=== PATIENT | female | born 1985 | race African-American/Black ===

== ENCOUNTER 2023-08-19 17:30 | Emergency (ER) | payer MEDICARE, SELFPAY ==
[2023-08-19 17:46] VITALS: BP 114/65; PULSE 86; RESP 18; TEMP 36.9; O2SAT 100; BMI 20.2
--- NOTE | 2023-08-19 18:12 | US_ITS ---
[facility] [place] [id number] Patient Name: CAROL ANN ROMAN MRN: [id number] date: 1985 Sex: F Assigned Patient Location: ER Current Patient Location: ER Accession/Order Number: [id number] Exam Date: 08/19/2023 18:45 Report Date: 08/19/2023 19:39 At the request of: JULIANNE LOWE Procedure: US pelvis transvaginal EXAM: US pelvis transvaginal HISTORY: Heavy vaginal bleeding COMPARISON: None. TECHNIQUE: Transabdominal and endovaginal approach pelvic ultrasound is performed. Multiple grayscale and color Doppler images are submitted for review. FINDINGS: The uterus is anteverted and measures 8.1 x 3.7 x 3.6 cm, and demonstrates normal morphology with normal echotexture. No uterine mass is visualized. The endometrium appears unremarkable, measuring 12 mm in thickness. The right ovary measures 3.1 x 2.4 x 2.4 cm. A 1.6 x 1.3 x 1.2 cm anechoic structure suggestive of a simple cyst is seen in the right ovary. The right ovary demonstrates normal Doppler flow. The left ovary measures 2.6 x 2.2 x 1.5 cm and demonstrates normal morphology with normal Doppler flow. No significant free pelvic fluid is seen. US/US pelvis transvaginal IMPRESSION: Unremarkable pelvic ultrasound. Bilateral ovaries demonstrate normal Doppler flow. Electronically authenticated by: JULES PHAM Date: 08/19/2023 19:39
--- NOTE | 2023-08-19 18:13 | ED_ITS ---
HPI - Female Genitourinary General Chief complaint: Urogenital-Female Stated complaint: Vaginal Bleeding Time Seen by Provider: 08/19/23 18:01 Source: patient Mode of arrival: walk-in Limitations: no limitations History of Present Illness HPI Narrative: patient is a 38-year-old female who presents to the emergency department for the evaluation of heavy vaginal bleeding that began today. She states that her last menstrual period was light and she does have a history of having both light and more heavy periods, but she has never had a period this heavy. She states that she woke up this morning and blood had soaked through her sheets and mattress protector. She is passing large clots. She denies any significant cramping. She does not believe she is but states there is a small possibility. She has not had any vomiting, fevers or urinary symptoms. She is not on any control or hormones. She states she had a LEEP procedure years ago but has not had any other gynecological surgeries. Related Data Previous Rx's Medication Instructions Recorded ketorolac 10 mg tablet 10 mg PO TID PRN pain #10 tabs 08/19/23 megestrol 20 mg tablet See Rx Instructions .Route 08/19/23 .COMPLEX #33 tabs ondansetron 4 mg disintegrating 4 mg PO Q6H PRN nausea and 08/19/23 tablet vomiting #12 tabs Allergies Allergy/AdvReac Type Severity Reaction Status Date / Time No Known Drug Allergies Allergy Verified 08/19/23 17:46 Review of Systems ROS Constitutional Denies: fever or chills Ears, nose, mouth, and throat Denies: throat pain Respiratory Denies: shortness of breath or cough Gastrointestinal Denies: nausea or vomiting Genitourinary Denies: painful urination Musculoskeletal Denies: back pain Integumentary/Breast Denies: rash Neurological Denies: headache Hematologic/Lymphatic Denies: easy bruising PFSH PFSH Social History Smoking status: Never smoker Exam Narrative Exam Narrative: Gen.: Awake, alert, in no distress Head: Normocephalic, atraumatic ENT: Moist mucous membranes Respiratory: No respiratory distress Gastrointestinal: Abdomen is soft, nondistended and nontender to palpation Extremities: Moves extremities equally Psych: Normal mood and affect Neuro: No focal neuro deficit Skin: Warm, dry, intact Constitutional Vital Signs, click to edit/add: Last Vital Signs Temp 98.4 F 08/19/23 17:46 Pulse 86 08/19/23 17:46 Resp 18 08/19/23 17:46 BP 114/65 08/19/23 17:46 Pulse Ox 100 08/19/23 17:46 O2 Del Method Room Air 08/19/23 17:46 Course Vital Signs Vital signs: Vital Signs Temperature 98.4 F 08/19/23 17:46 Pulse Rate 86 08/19/23 17:46 Respiratory Rate 18 08/19/23 17:46 Blood Pressure 114/65 08/19/23 17:46 Pulse Oximetry 100 08/19/23 17:46 Oxygen Delivery Method Room Air 08/19/23 17:46 Temperature 98.4 F 08/19/23 17:46 Pulse Rate 86 08/19/23 17:46 Respiratory Rate 18 08/19/23 17:46 Blood Pressure 114/65 08/19/23 17:46 Pulse Oximetry 100 08/19/23 17:46 Oxygen Delivery Method Room Air 08/19/23 17:46 MDM - Female Genitourinary MDM Narrative Medical decision making narrative: patient noted to have anemia, she does admit to iron deficiency anemia in the past and is taking iron supplements. 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 Toradol and Zofran given for comfort as needed. Patient is not and ultrasound with no evidence of acute process. Return to the Emergency Room if symptoms change or worsen. Abdomen is soft and benign with stable vital signs at discharge. urine specimen was contaminated with blood, this does show white blood cells but the patient has no urinary complaints so we will wait for culture to treat with antibiotics. Medical Records Attestation: I reviewed the patient's medical records. Lab Data Attestation: I reviewed the patient's lab results. Labs: Lab Results 08/19/23 08/19/23 Range/Units 18:22 19:00 WBC 7.6 (4.0-11.0) 10^3/uL RBC 4.17 L (4.20-5.40) 10^6/uL Hgb 9.3 L (12.0-16.0) g/dL Hct 31.9 L (36.0-48.0) % MCV 76.5 L (81.0-99.0) fL MCH 22.3 L (26.7-34.0) pg MCHC 29.2 L (29.9-35.2) g/dL RDW 24.4 H (11.0-15.0) % Plt Count 194 (150-450) 10^3/uL Seg Neuts % (Manual) 71.0 Lymphocytes % (Manual) 20.0 L (20.5-60.0) % Monocytes % (Manual) 8.0 (1.7-12.0) % Eosinophils % (Manual) 1.0 (0.9-7.0) % Basophils % (Manual) 0.0 L (0.2-2.0) % Neutrophils # (Manual) 5.39 (1.4-6.5) 10^3/uL Lymphocytes # (Manual) 1.52 (1.20-3.80) 10^3/uL Monocytes # (Manual) 0.60 (0.30-0.80) 10^3/uL Eosinophils # (Manual) 0.07 (0.00-0.70) 10^3/uL Basophils # (Manual) 0.00 (0.00-0.10) 10^3/uL Anisocytosis 2+ Ovalocytes 1+ PT 11.0 (9.0-11.6) sec INR 1.04 Sodium 135 L (136-145) mmol/L Potassium 3.6 (3.5-5.1) mmol/L Chloride 106 (98-107) mmol/L Carbon Dioxide 25.9 (21.0-32.0) mmol/L Anion Gap 6.7 BUN 11.0 (7.0-18.0) mg/dL Creatinine 1.06 H (0.55-1.02) mg/dL Est GFR ( Amer) >60 (>=60) Est GFR (Non-Af Amer) 58 L (>=60) BUN/Creatinine Ratio 10.4 Glucose 89 (74-106) mg/dL Calcium 8.3 L (8.5-10.1) mg/dL Total Bilirubin 0.5 (0.2-1.0) mg/dL AST 13 L (15-37) U/L ALT 16 (14-59) U/L Alkaline Phosphatase 47 (46-116) U/L Total Protein 7.1 (6.4-8.2) g/dL Albumin 3.5 (3.4-5.0) g/dL Globulin 3.6 g/dL Albumin/Globulin Ratio 1.0 Serum HCG, Qual Negative (NEGATIVE) Urine Color Yellow (YELLOW) Urine Clarity Cloudy A (CLEAR) Urine pH 5.5 (5.0-9.0) Ur Specific [place] >=1.030 A (1.005-1.025) Urine Protein 100 A (NEG/TRACE) mg/dL Urine Glucose (UA) Negative (NEGATIVE) mg/dL Urine Ketones Trace A (NEGATIVE) mg/dL Urine Occult Blood Large A (NEGATIVE) Urine Nitrite Negative (NEGATIVE) Urine Bilirubin Negative (NEGATIVE) Urine Urobilinogen 1.0 (0.2-1.0) EU/dL Ur Leukocyte Esterase Trace A (NEGATIVE) Urine RBC >100 A (0-2) #/HPF Urine WBC 20-50 A (NONE SEEN) #/HPF Ur Squamous Epith Cells Rare (NONE/RARE) #/LPF Urine Crystals None seen (None Seen) #/HPF Urine Bacteria None seen (NONE SEEN) #/HPF Urine Casts None seen (NONE SEEN) #/LPF Urine Mucus None seen (NONE SEEN) Imaging Data US - abdomen: Attestation: I have reviewed the pertinent imaging results. Radiologist's impression: Procedure: US pelvis transvaginal EXAM: US pelvis transvaginal HISTORY: Heavy vaginal bleeding COMPARISON: None. TECHNIQUE: Transabdominal and endovaginal approach pelvic ultrasound is performed. Multiple grayscale and color Doppler images are submitted for review. FINDINGS: The uterus is anteverted and measures 8.1 x 3.7 x 3.6 cm, and demonstrates normal morphology with normal echotexture. No uterine mass is visualized. The endometrium appears unremarkable, measuring 12 mm in thickness. The right ovary measures 3.1 x 2.4 x 2.4 cm. A 1.6 x 1.3 x 1.2 cm anechoic structure suggestive of a simple cyst is seen in the right ovary. The right ovary demonstrates normal Doppler flow. The left ovary measures 2.6 x 2.2 x 1.5 cm and demonstrates normal morphology with normal Doppler flow. No significant free pelvic fluid is seen. IMPRESSION: Unremarkable pelvic ultrasound. Bilateral ovaries demonstrate normal Doppler flow. Electronically authenticated by: JULES PHAM Date: 08/19/2023 19:39 Discharge Plan Discharge Chief Complaint: Urogenital-Female Clinical Impression: Dysfunctional uterine bleeding Patient Disposition: Home, Self-Care Time of Disposition Decision: 19:50 Condition: Good Prescriptions / Home Meds: New ketorolac 10 mg tablet 10 mg PO TID PRN (Reason: pain) Qty: 10 0RF ondansetron 4 mg tablet,disintegrating 4 mg PO Q6H PRN (Reason: nausea and vomiting) Qty: 12 0RF megestrol 20 mg tablet See Rx Instructions .ROUTE .COMPLEX Qty: 33 0RF Rx Instructions: 20 mg orally BID x 3 days, then 20mg daily for 27 days Instructions: Abnormal (Dysfunctional) Uterine Bleeding (ED) Stand Alone Forms: Portal Instructions Referrals: Clarke Hu DO [Physician] - 1 week Physician,Non-Staff, MD [Primary Care Provider] - 1 week
[2023-08-19 18:29] LABS: Hematocrit 31.9 % (36.0-48.0); Hemoglobin 9.3 g/dL (12.0-16.0); Mean Corpuscular HGB Conc 29.2 g/dL (29.9-35.2); Mean Corpuscular Hemoglobin 22.3 pg (26.7-34.0); Mean Corpuscular Volume 76.5 fL (81.0-99.0); Platelet Count 194 10^3/uL (150-450); Red Blood Count 4.17 10^6/uL (4.20-5.40); Red Cell Distribution Width 24.4 % (11.0-15.0); White Blood Count 7.6 10^3/uL (4.0-11.0)
[2023-08-19 18:41] LABS: INR 1.04
[2023-08-19 18:46] LABS: HCG Qualitative NEGATIVE (NEGATIVE)
[2023-08-19 18:47] LABS: Alanine Aminotransferase 16 U/L (14-59); Albumin Level 3.5 g/dL (3.4-5.0); Alkaline Phosphatase 47 U/L (46-116); Anion Gap 6.7; Aspartate Amino Transferase 13 U/L (15-37); BUN Creatinine Ratio 10.4; Bilirubin Total 0.5 mg/dL (0.2-1.0); Calcium 8.3 mg/dL (8.5-10.1); Carbon Dioxide 25.9 mmol/L (21.0-32.0); Chloride 106 mmol/L (98-107); Estimated GFR (African America >60 (>=60); Estimated GFR (Non-African Ame 58 (>=60); Globulin 3.6 g/dL; Glucose 89 mg/dL (74-106); Potassium 3.6 mmol/L (3.5-5.1); Sodium 135 mmol/L (136-145); Total Protein 7.1 g/dL (6.4-8.2)
[2023-08-19 19:03] LABS: Eosinophils Absolute Manual 0.07 10^3/uL (0.00-0.70); Lymphocytes Absolute Manual 1.52 10^3/uL (1.20-3.80); Segmented Neut Absolute Manual 5.39 10^3/uL (1.4-6.5)
[2023-08-19 19:06] LABS: Anisocytosis 2+
[2023-08-19 19:08] LABS: Ovalocytes 1+
[2023-08-19 19:21] LABS: Bilirubin Urine NEGATIVE (NEGATIVE); Blood Urine LARGE (NEGATIVE); Clarity Urine CLOUDY (CLEAR); Color Urine YELLOW (YELLOW); Glucose Urine UA NEGATIVE (NEGATIVE); Ketones Urine TRACE mg/dL (NEGATIVE); Leukocyte Esterase Urine TRACE (NEGATIVE); Nitrite Urine NEGATIVE (NEGATIVE); Protein Urine 100 mg/dL (NEG/TRACE); Specific Gravity Urine >=1.030 (1.005-1.025); pH Urine 5.5 (5.0-9.0)
[2023-08-19 19:26] LABS: Urine Microscopic Indicated YES
[2023-08-19 19:44] LABS: Bacteria Urine NONE SEEN #/HPF (NONE SEEN); RBC Urine >100 #/HPF (0-2); WBC Urine 20-50 #/HPF (NONE SEEN)
[2023-08-19 19:45] LABS: Cast Seen? NONE SEEN #/LPF (NONE SEEN); Crystals Seen? None Seen #/HPF (None Seen); Mucus Urine NONE SEEN (NONE SEEN); Squamous Epithelial Cell Urine RARE #/LPF (NONE/RARE)
== END 2023-08-19 20:23 | disposition home or self-care (01) ==
PROVIDERS: Physician Assistant; Emergency Provider Emergency Medicine Emergency Medical Services
DX: N93.8 Other specified abnormal uterine and vaginal bleeding (principal)
CPT/HCPCS: 36415; 76830; 80053; 81001; 84703; 85027; 85610; 99284

== ENCOUNTER 2023-09-18 10:55 | Outpatient (OUT) | payer MEDICARE, MEDICAID, SELFPAY ==
[2023-09-19 05:07] LABS: HBsAg Screen Negative (Negative); HCV Ab Non Reactive (Non Reactive); HIV Ab/p24 Ag Screen Non Reactive (Non Reactive); Hep A Ab, IgM Negative (Negative); Hep B Core Ab, IgM Negative (Negative)
[2023-09-19 11:09] LABS: Rapid Plasma Reagin, Quant Non Reactive titer (NonRea<1:1)
== END 2023-09-18 10:56 | disposition home or self-care (01) ==
PROVIDERS: Visit Provider Obstetrics & Gynecology
DX: N92.1 Excessive and frequent menstruation with irregular cycle (principal); Z11.3 Encounter for screening for infections with a predominantly sexual mode of transmission; N89.8 Other specified noninflammatory disorders of vagina
CPT/HCPCS: 36415; 80074; 86592; 87389

== ENCOUNTER 2023-11-14 10:53 | Outpatient (OUT) | payer MEDICARE, MEDICAID, SELFPAY ==
[2023-11-14 11:47] LABS: Basophils Percent Auto 0.5 % (0.2-2.0); Eosinophils Percent Auto 0.7 % (0.9-7.0); Hematocrit 36.1 % (36.0-48.0); Hemoglobin 11.1 g/dL (12.0-16.0); Immature Granulocytes Abs Auto 0.02 10^3/uL (0.00-0.03); Immature Granulocytes Pct Auto 0.3 % (0.0-0.5); Lymphocytes Absolute Auto 1.6 10^3/uL (1.2-3.8); Lymphocytes Percent Auto 27.3 % (20.5-60.0); Mean Corpuscular HGB Conc 30.7 g/dL (29.9-35.2); Mean Corpuscular Hemoglobin 24.3 pg (26.7-34.0); Mean Corpuscular Volume 79.2 fL (81.0-99.0); Mean Platelet Volume 12.9 fL (9.5-13.5); Monocytes Absolute Auto 0.4 10^3/uL (0.3-0.8); Monocytes Percent Auto 7.5 % (1.7-12.0); Neutrophils Absolute Auto 3.6 10^3/uL (1.4-6.5); Neutrophils Percent Auto 63.7 % (43.0-75.0); Platelet Count 200 10^3/uL (150-450); Red Blood Count 4.56 10^6/uL (4.20-5.40); Red Cell Distribution Width 15.9 % (11.0-15.0); White Blood Count 5.7 10^3/uL (4.0-11.0)
== END 2023-11-14 10:54 | disposition home or self-care (01) ==
LOC: PST 10:56
PROVIDERS: Visit Provider Obstetrics & Gynecology
DX: Z01.812 Encounter for preprocedural laboratory examination (principal); R93.89 Abnormal findings on diagnostic imaging of other specified body structures
CPT/HCPCS: 80048; 85025; 85610; 85730

== ENCOUNTER 2023-11-28 06:26 | Day surgery (SDC) | payer MEDICARE, MEDICAID, SELFPAY ==
[2023-11-14 11:33] VITALS: BP 117/73; PULSE 90; RESP 14; TEMP 36.4; O2SAT 99; BMI 20.3
[2023-11-28] VITALS (10 sets, daily range): BP systolic 90–130; BP diastolic 51–86; PULSE 79–91; RESP 12–20; TEMP 36.2–36.3; O2SAT 100; BMI 20.7
--- OUTSIDE RECORDS SUMMARY | 2023-11-28 06:31 | XMS_ITS | CCD ---
Author Name Unknown Address [id number] [place] [address] Organization [facility] Care Team Providers Care Cipher Expert Name Role Phone NON, STAFF Primary Care Provider UnavailJim Joel Attending Provider Unavailable Karri Jones Unavailable Unavailable Janice Lane Unavailable Unavailable PROVIDER, UNKNOWN Attending Unavailable PROVIDER, UNKNOWN Admitting Unavailable PATIENT, SELF Referring Unavailable Janice Lane MD Primary Care Provider [phone] Any, DO Vishal Hoover Emergency Provider MD Janice Lane Primary Care Provider Janice Lane MD Primary Care Provider Janice Lane MD Primary Care Provider [phone] MD Primary Care Provider MD Janice Lane Primary Care Provider DO Vishal Agarwal Emergency Provider [phone] Vishal Agarwal Admitting Unavailable Vishal Agarwal Attending Unavailable Janice Lane Primary Care Unavailable Vishal Agarwal Attending Unavailable Janice Lane Primary Care Unavailable Vishal Agarwal Admitting Unavailable JANICE LANE Primary Care Unavailable JANICE LANE Primary Care Unavailable ROSE WILCOX Referring Unavaila ROSE Alfaro Attending Unavaila JANICE Nielsen Primary Care Unavailable MIRNA BAXTER Attending Unavailable JANICE LANE Primary Care Unavailable JOSE RAUL SANTANA Referring Unavailable JOSE RAUL SANTANA Attending Unavailable JANICE LANE Primary Care Unavailable JOSE RAUL SANTANA Referring Unavailable RIMA, JANICE Hoover Primary Care Unavailable JOSE RAUL SANTANA A Referring Unavailable JOSE RAUL SANTANA A Attending Unavailable RIMA, JANICE Hoover Primary Care Unavailable JOSE RAUL SANTANA A Referring Unavailable RIMA, JANICE Hoover Primary Care Unavailable MICHELLE GARCIA Referring Unavailable RIMA, JANICE Hoover Primary Care Unavailable GERMANIA WILKINSON Attending Unavailable RIMA, JANICE Hoover Primary Care Unavailable RIMA, JANICE Hoover Attending Unavailable RIMA, JANICE Hoover Primary Care Unavailable JOSE RAUL SANTANA Referring Unavailable TOR BUTT Attending Unavailable RIMA, JANICE Hoover Primary Care Unavailable TOR HERNANDEZ Attending Unavailable RIMA, JANICE Hoover Primary Care Unavailable RIMA, JANICE Hoover Referring Unavailable RIMA, JANICE Hoover Attending Unavailable RIMA, JANICE Hoover Referring Unavailable RIMA, JANICE Hoover Primary Care Unavailable RIMA, JANICE Hoover Primary Care Unavailable RIMA, JANICE Hoover Attending Unavailable RIMA, JANICE Hoover Referring Unavailable RIMA, JANICE Hoover Primary Care Unavailable RIMA, JANICE Hoover Primary Care Unavailable JOSE RAUL SANTANA Referring Unavailable TOR HERNANDEZ Attending Unavailable RIMA, JANICE Hoover Primary Care Unavailable RIMA, JANICE Hoover Referring Unavailable RIMA, JANICE Hoover Primary Care Unavailable RIMA, JANICE Hoover Referring Unavailable NAYLA LOUIS Attending Unavailable MARVIN KATZ Attending Unavailable MARVIN KATZ Attending Unavailable JOHN VERDIN Attending Unavailable KELECHI TATUM Attending Unavailable Unavailable Unavailable Unavailable Allergies Allergy Classification Reported Allergen(s) Allergy Type Date of Onset Reaction(s) Facility (2 sources) glutenin; Translations: [GLUTEN] Allergy to substance (finding) 0 [facility] Repository (1 source) Soy protein; Translations: [SOY ALLERGY] Propensity to adverse reactions to drug (disorder) 0 [facility] Repository (1 source) GLUTEN MEAL; Translations: [GLUTEN MEAL] Propensity to adverse reactions to drug (disorder) 9 [facility] ([facility] source) LECITHIN ORGANIC-SOYBEAN LECITHIN; Translations: [LECITHIN ORGANIC-SOYBEAN LECITHIN] Propensity to adverse reactions to drug (disorder) 9 [facility] Repository (20 sources) Lecithin; Translations: [LECITHIN] Drug Allergy 9 Other: See Comments, Unknown, Itching, GI Upset [facility] Work Phone: (20 sources) Soy protein; Translations: [SOY] Drug Intolerance 0 Intolerance [facility] (20 sources) Wheat gluten extract Drug Allergy 9 Other: See Comments, Hives, Itching [facility] (20 sources) Soybean Lecithin; Translations: [LECITHIN, SOY] Drug Allergy 2 GI Upset, Unknown [facility] Medications Current Medications Medication Drug Class(es) Dates Sig (Normalized) Sig (Original) acetaminophen 325 mg oral tablet (13 sources) Start: 01-11-2021 End: 08-08-2022 take 2 tablets by mouth every four hours as needed acetaminophen (TYLENOL) 325 mg tablet Take 2 tablets by mouth every 4 hours as needed. 40 tablet 0 01/11/2021 08/08/2022 Discontinued Comment on above: Take 2 tablets by mo ut every 4 hours as needed. benoxinate hydrochloride 4 mg/ml / fluorescein sodium 2.5 mg/ml ophthalmic solution (1 source) Diagnostic Dye Start: 08-14-2022 End: 08-15-2022 fluorescein-benoxin ate 0.25-0.4 % 1 Drop (FLURESS) cholecalciferol 1.25 mg oral capsule (17 sources) Vitamin D Start: 12-20-2019 End: 08-08-2022 take 1 capsule by mouth every week cholecalciferol, Vitamin D3, (VITAMIN D3) 1,250 mcg (50,000 unit) cap capsule Indications: Vitamin D deficiency Take 1 capsule by mouth one time a week. 12 capsule 0 04/25/2022 08/08/2022 Discontinued Start: 04-09-2019 take 1 capsule by mo uth once daily Cholecalciferol (Vitamin D3) (Vitamin D3) 1,000 unit Capsule Active 1000 UNIT PO Daily April 09, 2019 12:20pm Comment on above: Take 1 capsule by mo ut one time a week. 12 hr dalfampridine 10 mg extended release oral tablet (20 sources) Potassium Channel Arvin Start: 3 End: 4 take 1 tablet by mouth twice daily dalfampridine ER (AMPYRA) 10 mg tablet Indications: Multiple sclerosis (HCC) Take 1 tablet by mouth twice daily. 60 tablet 11 01/24/2023 01/24/2024 Active Start: 08-08-2022 End: 02-04-2023 take 1 tablet by mouth every twelve hours dalfampridine ER (AMPYRA) 10 mg tablet Take 1 tablet by mouth every 12 hours. 60 tablet 5 11/07/2022 11/07/2022 Discontinued Start: 04-09-2019 End: 04-02-2022 take 1 tablet by mouth every twelve hours Dalfampridine (Ampyra) 10 mg Tablet Extended Release 12 Hr Discontinued 1 TAB PO Every 12 hours April 09, 2019 12:20pm April 02, 2022 5:22pm Comment on above: Take 1 tablet by jose ramon th every 12 hours. Take 1 tablet by jose ramon th twice daily. diphenhydrAMINE hydrochloride 25 mg oral capsule (3 sources) Histamine-1 Receptor Antagonist Start: take 1 capsule by mouth every six hours Diphenhydramine Hcl (Benadryl) 25 mg Capsule Active 25 MG PO Q6H April 09, 2019 12:20pm ferrous sulfate 325 mg oral tablet (1 source) Start: 023 End: take 1 tablet by mouth once daily ferrous sulfate 325 mg (65 mg iron) tablet Indications: Iron deficiency anemia due to chronic blood loss Take 1 tablet by mouth once daily. 30 tablet 1 02/13/2023 03/15/2023 Active Comment on above: Take 1 tablet by jose ramon th once daily. ibuprofen 600 mg oral tablet (15 sources) Nonsteroidal Anti-inflammatory Drug Start: 022 Ibuprofen Active 600 MG PO Every 6 hours April 02, 2022 6:12pm do not exceed 4 doses in a 24 hour period Start: 01-11-2021 End: 08-08-2022 take 1 tablet by mouth every six hours as needed ibuprofen (MOTRIN) 600 mg tablet Take 1 tablet by mouth four times daily as needed. 40 tablet 0 01/11/2021 08/08/2022 Discontinued Comment on above: Take 1 tablet by jose ramon th four times daily as needed. iv contrast (will be provided with radiology test) (6 sources) Start: 07-23-20 End: 07-24-20 inject 1 dose intravenously once iv contrast (will be provided with radiology test) Indications: Multiple sclerosis (HCC) MRI Brain Inject, intravenously, once for 1 dose.No IV access, insert saline lock prior to beginning of sedation, infusion, injection of imaging exam.Discontinue saline lock post exam. If Pt. has a central line or IVAD, may access for administration according to line specific nursing protocol.Once exam is complete flush line and de-access according to line specific nursing protocol in the MR contrast administration guidelines link 1 Each 0 07/23/2023 07/24/2023 Active Start: 11-07-2022 End: 11-08-2022 inject 1 dose intravenously once iv contrast (will be provided with radiology test) MRI Brain Inject, intravenously, once for 1 dose.No IV access, insert saline lock prior to beginning of sedation, infusion, injection of imaging exam.Discontinue saline lock post exam. If Pt. has a central line or IVAD, may access for administration according to line specific nursing protocol.Once exam is complete flush line and de-access according to line specific nursing protocol in the MR contrast administration guidelines link 1 Each 0 11/07/2022 11/08/2022 Start: 11-07-2022 End: 11-08-2022 iv contrast (will be provide d with radiology test) MRI CSP Inject, intravenously, once for 1 dose. No IV access, insert saline lock prior to the beginning of sedation, infusion, injection of imaging exam. Discontinue saline lock post exam. If Pt. has a central line or IVAD, may access for administration according to line specific nursing protocol. Once exam is complete flush line and de-access according to line specific nursing protocol in the MR contrast administration guidelines link. 1 Each 0 11/07/2022 11/08/2022 Start: 06-21-2022 End: 06-22-2022 inject 1 dose intravenously once iv contrast (will be provided with radiology test) MRI Brain Inject, intravenously, once for 1 dose.No IV access, insert saline lock prior to beginning of sedation, infusion, injection of imaging exam.Discontinue saline lock post exam. If Pt. has a central line or IVAD, may access for administration according to line specific nursing protocol.Once exam is complete flush line and de-access according to line specific nursing protocol in the MR contrast administration guidelines link 1 Each 0 06/21/2022 06/22/2022 Active Start: 06-21-2022 End: 06-22-2022 iv contrast (will be provide d with radiology test) MRI CSP Inject, intravenously, once for 1 dose. No IV access, insert saline lock prior to the beginning of sedation, infusion, injection of imaging exam. Discontinue saline lock post exam. If Pt. has a central line or IVAD, may access for administration according to line specific nursing protocol. Once exam is complete flush line and de-access according to line specific nursing protocol in the MR contrast administration guidelines link. 1 Each 0 06/21/2022 06/22/2022 Active Start: 06-21-2022 End: 06-22-2022 inject 1 dose intravenously once iv contrast (will be provided with radiology test) MRI TSP Inject, intravenously, once for 1 dose. No IV access, insert saline lock prior to the beginning of sedation, infusion, injection of imaging exam. Discontinue saline lock post exam. If Pt. has a central line or IVAD, may access for administration according to line specific nursing protocol. Once exam is complete flush line and de-access according to line specific nursing protocol in the MR contrast administration guidelines link. 1 Each 0 06/21/2022 06/22/2022 Active Comment on above: MRI Brain Inject, in travenously, once for 1 dose.No IV access, insert saline lock prior to beginning of sedation, infusion, injection of imaging exam.Discontinue saline lock post exam. If Pt. has a central line or IVAD, may access for administration according to line specific nursing protocol.Once exam is complete flush line and de-access according to line specific nursing protocol in the MR contrast administration guidelines link MRI CSP Inject, intr avenously, once for 1 dose. No IV access, insert saline lock prior to the beginning of sedation, infusion, injection of imaging exam. Discontinue saline lock post exam. If Pt. has a central line or IVAD, may access for administration according to line specific nursing protocol. Once exam is complete flush line and de-access according to line specific nursing protocol in the MR contrast administration guidelines link. MRI TSP Inject, intr avenously, once for 1 dose. No IV access, insert saline lock prior to the beginning of sedation, infusion, injection of imaging exam. Discontinue saline lock post exam. If Pt. has a central line or IVAD, may access for administration according to line specific nursing protocol. Once exam is complete flush line and de-access according to line specific nursing protocol in the MR contrast administration guidelines link. magnesium oxide 400 mg oral tablet (9 sources) Start: 3 End: 4 take 1 tablet by mouth once daily at bedtime magnesium oxide (MAG-OX) 400 mg (241.3 mg magnesium) tablet Indications: Multiple sclerosis (HCC) , Spasticity Take 1 tablet by mouth daily at bedtime. 30 tablet 5 07/23/2023 01/19/2024 Active Comment on above: Take 1 tablet by jose ramon th daily at bedtime. Multivitamin-Iron- Folic Acid (1 source) Start: 9 take 1 tablet by mouth once daily Multivitamin-Iron- Folic Acid Active 1 TAB Oral Daily April 09, 2019 12:28pm Multivitamin-Iron- Folic Acid (Multi-Day With Iron) 18-400 mg-mcg Tablet (2 sources) Start: 9 take 1 tablet by mouth once daily Multivitamin-Iron- Folic Acid (Multi-Day With Iron) 18-400 mg-mcg Tablet Active 1 TAB PO Daily April 09, 2019 12:28pm Start: 04-09-2019 take 1 tablet by jose ramon th once daily Gemuwdqsfgyp-Bpug-Cczpj Acid (Multi-Day With Iron) 18-400 mg-mcg Tablet Active 1 TAB PO Daily April 08, 2019 11:00pm nirmatrelvir tablet 300 mg (150 mg x 2) and ritonavir tablet 100 mg in a dose pack (PAXLOVID) (2 sources) Start: 12-16-2022 End: 12-21-2022 nirmatrelvir tablet 300 mg (150 mg x 2) and ritonavir tablet 100 mg in a dose pack (PAXLOVID) Indications: COVID Administer TWO pink nirmatrelvir 150 mg tablets and ONE white ritonavir 100 mg tablet for a total of three tablets twice daily. 30 tablet 0 12/16/2022 12/21/2022 Active Comment on above: Administer TWO pink nirmatrelvir 150 mg tablets and ONE white ritonavir 100 mg tablet for a total of three tablets twice daily. Nirmatrelvir-Ritona vir (1 source) Start: 10-28-2022 Nirmatrelvir-Riton avir (Paxlovid (Eua)) 300 mg (150 mg x 2)-100 mg tablets,dose pack Active 0 PO .COMPLEX October 28, 2022 12:00am take TWO 150 mg tablets of nirmatrelvir with ONE 100 mg tablet of ritonavir twice daily for 5 days phenylephrine hydrochloride 25 mg/ml ophthalmic solution (1 source) alpha-1 Adrenergic Agonist Start: 08-14-2022 End: 08-15-2022 PHENYLephrine 2.5 % 1 Drop (AK-DILATE, SABINA-SYNEPHRINE) tropicamide 10 mg/ml ophthalmic solution (1 source) Anticholinergic Start: 08-14-2022 End: 08-15-2022 tropicamide 1 % 1 Drop (MYDRIACYL) Vitamin B Complex (1 source) Start: 04-09-2019 take 1 tablet by mouth once daily Vitamin B Complex Active 1 TAB Oral Daily April 09, 2019 12:20pm Vitamin B Complex (B Complex 1) Tablet (2 sources) Start: 04-09-2019 take 1 tablet by mouth once daily Vitamin B Complex (B Complex 1) Tablet Active 1 TAB PO Daily April 09, 2019 12:20pm Start: 04-09-2019 take 1 tablet by mouth once da pablo Vitamin B Complex (B Complex 1) Tablet Active 1 TAB PO Daily April 08, 2019 11:00pm Completed/Discontinued Medications Medication Drug Class(es) Dates Sig (Normalized) Sig (Original) acetaminophen 325 mg / HYDROcodone bitartrate 5 mg oral tablet (3 sources) Opioid Agonist Start: 04-09-2019 End: 04-02-2022 take 1 tablet by mouth every four to six hours Hydrocodone-Acetam inophen ([place]) 5-325 mg Tablet Discontinued 1 TAB PO EVERY 4-6 HOURS April 09, 2019 12:28pm April 02, 2022 5:25pm amoxicillin 500 mg oral tablet (3 sources) Penicillin-class Antibacterial take 2 tablets by mouth twice daily Amoxicillin 500 mg tablet Take 1,000 mg by mouth two times a day. 0 Active Comment on above: Take 1,000 mg by jose ramon th two times a day. ascorbic acid 500 mg oral capsule (20 sources) Vitamin C Start: 01-05-2020 take 1 capsule by mouth once daily Vitamin C 500 MG Oral Capsule TAKE 1 CAPSULE Daily Refills: 0 Start : 05-Jan-2020 Active Start: 04-09-2019 take 1 tablet by mouth once da pablo Ascorbic Acid (Vitamin C) (Vitamin C) 100 mg Tablet Active 100 MG PO Daily April 09, 2019 12:20pm take 100 mg by mouth once daily Ascorbic Acid 100 mg chew Take 100 mg by mouth once daily. 0 Active Comment on above: Take 100 mg by mouth once daily. azithromycin 250 mg oral tablet (6 sources) Macrolide Antimicrobial Start: 02-12-2023 azithromycin (ZITHROMAX Z-CY) 250 mg tablet 2 tablets by mouth first day then 1 tablet the next 4 days 6 tablet 0 02/12/2023 Active Comment on above: 2 tablets by mouth f irst day then 1 tablet the next 4 days Calcium Carbonate (20 sources) calcium carbonat e (CALCIUM 300 ORAL) Take by mouth once daily. 0 Active Comment on above: Take by mouth once d aily. Mag Nurcb-J6-Tnwtxzkw Rt Xt (3 sources) Vitamin D Start: 04-09-2019 End: 04-02-2022 Mag Kotth-Y9-Ehvylqzo Rt Xt Discontinued TABLET April 09, 2019 12:28pm April 02, 2022 5:24pm Start: 04-09-2019 Mag Oxide-D3-T urmeric Rt Xt Active April 09, 2019 12:28pm Start: 04-09-2019 End: 04-02-2022 Mag Fyjni-N0-Dknaywhn Rt Xt Discontinued TABLET April 08, 2019 11:00pm April 02, 2022 4:24pm doxepin 3 mg oral tablet (3 sources) Tricyclic Antidepressant Start: 04-09-2019 End: 04-02-2022 take 1 tablet by mouth once daily at bedtime Doxepin (Silenor) 3 mg Tablet Discontinued 3 MG PO Daily at bedtime April 09, 2019 12:20pm April 02, 2022 5:22pm ergocalciferol 1.25 mg oral capsule (20 sources) Provitamin D2 Compound Start: 01-30-2023 End: 07-31-2023 take 1 capsule by mouth every week ergocalciferol 50,000 unit capsule (VITAMIN D2, DRISDOL) Indications: Multiple sclerosis (HCC) , Vitamin D deficiency Take 1 capsule by mouth one time a week. 12 capsule 3 07/31/2023 Active Start: 08-08-2022 take 1 capsule by mo uth every week ergocalciferol 50,000 unit capsule (VITAMIN D2, DRISDOL) Take 1 capsule by mouth one time a week. 12 capsule 3 08/08/2022 Active Comment on above: Take 1 capsule by mo uth one time a week. escitalopram 10 mg oral tablet (3 sources) Serotonin Reuptake Inhibitor Start: 04-09-20 End: 04-02-20 take 1 tablet by mouth once daily Escitalopram Oxalate (Lexapro) 10 mg Tablet Discontinued 10 MG PO Daily April 09, 2019 12:20pm April 02, 2022 5:22pm eszopiclone 3 mg oral tablet (4 sources) Start: 04-09-20 End: 04-02-20 take 1 tablet by mouth at bedtime as needed for sleep Lunesta 3 MG Oral Tablet TAKE 1 TABLET AT BEDTIME NEEDED FOR SLEEP. Refills: 0 Start : 05-Jan-2020 Active fluticasone propionate 0.05 mg/actuat metered dose nasal spray (20 sources) Corticosteroid Start: 09-01-20 take 1 spray(s) nasal route once daily fluticasone (FLONASE) 50 mcg/actuation nasal spray Use 1 [place] in each nostril once daily. 1 g 5 09/01/2020 Active Comment on above: Use 1 [place] in each nostril once daily. ketoconazole 20 mg/ml topical cream (20 sources) Azole Antifungal Start: 07-17-20 ketoconazole (NIZORAL) 2 % shampoo 2-3 times weekly as body wash 125 mL 11 07/17/2023 Active Start: 07-17-2023 ketoconazole ( NIZORAL) 2 % cream Apply to affected area once daily. Apply qd 30 g 3 07/17/2023 Active Start: 10-02-2020 End: 08-08-2022 ketoconazole (NIZORAL) 2 % s hampoo 2-3 times weekly as body wash 125 mL 11 10/02/2020 08/08/2022 Discontinued Start: 09-01-2020 ketoconazole ( NIZORAL) 2 % cream Apply to affected area once daily. Apply qd 30 g 3 09/01/2020 Active Comment on above: Apply to affected ar ea once daily. Apply qd 2-3 times weekly as body wash levonorgestrel 0.308510 mg/hr intrauterine system (3 sources) Progestin, Progestin-containing Intrauterine Device Start: 04-09-2019 Levonorgestrel Active 1 DEVICE Intrauterine Once April 09, 2019 12:28pm Start: 04-09-2019 End: 04-02-2022 Levonorgestrel (Mirena) 20 m cg/24 hours (5 yrs) 52 mg Intrauterine Device Discontinued 1 DEVICE INTRAUTERI Once April 09, 2019 12:28pm April 02, 2022 5:23pm linaclotide 0.29 mg oral capsule (15 sources) Guanylate Cyclase-C Agonist Start: 04-19-2021 End: 08-14-2022 take 1 capsule by mouth once daily, then take 6 capsules by mouth in the morning linaCLOtide (LINZESS) 290 mcg capsule Indications: Chronic idiopathic constipation Take 1 capsule by mouth DAILY (6 AM). 30 capsule 5 04/19/2021 08/14/2022 Discontinued Comment on above: Take 1 capsule by mo [facility] DAILY (6 AM). Magnesium (20 sources) End: 07-23-2023 take 1 tablet by mouth twice daily MAGNESIUM ORAL Take 1 tablet by mouth twice daily. 0 07/23/2023 Discontinued (Course of therapy completed) take 1 tablet by mouth twice linda ly MAGNESIUM ORAL Take 1 tablet by mouth twice daily. 0 Active Comment on above: Take 1 tablet by jsoe ramon twice daily. meclizine hydrochloride 12.5 mg oral tablet (3 sources) Antiemetic Start: 2018 End: 2021 take 12.5 mg by mouth three times daily Meclizine Discontinued 12.5 MG PO Three times daily April 09, 2019 12:28pm April 02, 2022 5:23pm melatonin 3 mg oral tablet (20 sources) Start: 2020 take 1 tablet by mouth once daily as needed melatonin 3 mg tablet Take 1 tablet by mouth once daily as needed. 12 tablet 0 01/11/2021 Active Comment on above: Take 1 tablet by jose ramon once daily as needed. metroNIDAZOLE 500 mg oral tablet (3 sources) Nitroimidazole Antimicrobial take 1 tablet by mouth three times daily metroNIDAZOLE (FLAGYL) 500 mg tablet Take 500 mg by mouth three times a day. 0 Active Comment on above: Take 500 mg by mouth three times a day. 15 ml natalizumab 20 mg/ml injection (3 sources) Integrin Receptor Antagonist Start: 2018 End: 2021 take 300 mg intravenously every month Natalizumab (Tysabri) 300 mg/15 mL Solution Discontinued 300 MG IV every month April 09, 2019 12:28pm April 02, 2022 5:23pm norethindrone 0.35 mg oral tablet (3 sources) take 1 tablet by mouth once daily in the morning Norethindrone, Contraceptive, (JENCYCLA) 0.35 mg tablet Take 1 tablet by mouth every morning. 0 Active Comment on above: Take 1 tablet by jose ramon th every morning. 10 ml ocrelizumab 30 mg/ml injection (20 sources) Start: 2021 ocrelizumab (OCREVUS) 30 mg/mL soln injection Ocrelizumab (Ocrevus) 30 mg/mL Solution Active 30 MG IV EVERY 6 MONTHS April 02, 2022 5:21pm pt. recieves infusion Q6M for MS 0 04/02/2022 Active Comment on above: Ocrelizumab (Ocrevus ) 30 mg/mL Solution Active 30 MG IV EVERY 6 MONTHS April 02, 2022 5:21pm pt. recieves infusion Q6M for MS ocrelizumab (OCREVUS INTRAVENOUS) (15 sources) End: 2021 ocrelizumab (OCREVUS INTRAVENOUS) Inject intravenously. 0 08/14/2022 Discontinued ocrelizumab (OCR EVUS INTRAVENOUS) Inject intravenously. 0 Active Comment on above: Inject intravenously . polyethylene glycol 3350 80086 mg powder for oral solution (16 sources) Osmotic Laxative Start: 04-19-2021 End: 08-14-2022 polyethylene glycol 3350 (MIRALAX) 17 gram/dose powder Indications: Chronic idiopathic constipation Take 17 g by mouth twice daily. Dissolve dose in 4 - 8 ounces of liquid and take as directed. 850 g 5 04/19/2021 08/14/2022 Discontinued Start: 01-05-2020 MiraLax Oral P acket USE DIRECTED. Refills: 0 Start : 05-Jan-2020 Active Comment on above: Take 17 g by mouth t wice daily. Dissolve dose in 4 - 8 ounces of liquid and take as directed. polyethylene glycol, bulk, 100 % powd (20 sources) polyethylene gly col, bulk, 100 % powd as directed. 0 Active Comment on above: as directed. potassium 99 mg extended release oral tablet (1 source) Start: 01-05-20 take 1 tablet by mouth once daily Potassium 99 MG Oral Tablet TAKE 1 TABLET DAILY DIRECTED. Refills: 0 Start : 05-Jan-2020 Active microencapsulated potassium chloride 20 meq extended release oral tablet (20 sources) End: 01-18-20 potassium chloride ER (K-DUR, KLOR-CON) 20 mEq tablet Take 20 mEq by mouth as needed. 0 01/17/2023 Discontinued Comment on above: Take 20 mEq by mouth as needed. Ckwspjfk-Kt-Vaw-Fe-FA ( VITAMIN) tab (20 sources) Start: 08-04-20 take 1 tablet by mouth once daily Ardavtfs-Fh-Ntl-Fe-F A ( VITAMIN) tab Indications: Encounter for supervision of normal first in second trimester Take 1 tablet by mouth once daily. 90 tablet 3 2020 Active Comment on above: Take 1 tablet by jose ramon th once daily. /Iron Oral Tablet (1 source) Start: 01-05-20 take 1 tablet by mouth once daily /Iron Oral Tablet TAKE 1 TABLET DAILY. Refills: 0 Start : 05-Jan-2020 Active tiZANidine 2 mg oral tablet (20 sources) Central alpha-2 Adrenergic Agonist Start: 01-31-20 take 1 tablet by mouth every eight hours as needed tiZANidine (ZANAFLEX) 2 mg tablet Indications: Multiple sclerosis (HCC) Take 1 tablet by mouth every 8 hours as needed. 90 tablet 3 01/30/2023 Active Start: 08-08-2022 End: 11-07-2022 take 1 tablet by mouth every eight hours as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 [H91.93] 07/14/2018 Cognitive complaints [R41.9] 03/03/2019 07/17/2023 Constipation [K59.00] 10/06/2019 07/17/2023 Costochondritis, acute [M94.0] 04/17/2021 04/20/2021 Edema of lower extremity [R60.0] 04/17/2021 04/20/2021 Gait difficulty [R26.9] 10/06/2019 07/17/2023 Hypoglycemia [E16.2] 03/07/2021 07/17/2023 Neurogenic bladder [N31.9] 07/14/2020 Obstructive sleep apnea [G47.33] 07/28/2017 07/17/2023 Optic neuritis [H46.9] 08/21/2019 Ovarian cyst, complex [N83.299] 04/14/2018 Ovarian torsion [N83.519] 04/14/2018 Restless leg syndrome [G25.81] 07/28/2017 Somnolence, daytime [R40.0] 07/28/2017 04/20/2021 Syncope and collapse [R55] 12/04/2018 07/17/2023 Cognitive communication deficit [R41.841] 07/22/2022 07/17/2023 Encounter Status:Closed by KATHERYN ESPINO on 09/29/23 Normal [facility] Comprehensive metabolic 2000 panelon 09-25-2023 Albumin [Mass/Vol] 4.5 g/dL Normal 3.9-4.9 [facility] Comment on above: Order Comment: Speci men Type: BLOOD SPECIMENOrdering Facility: [facility] Address: [address] [place] [address] Performed By: #### 2 4323-8 ####[facility] LABCLIA [id number] [place] [address] ALP [Catalytic activity/Vol] 58 U/L Normal 34-123 [facility] Comment on above: Order Comment: Speci men Type: BLOOD SPECIMENOrdering Facility: [facility] Address: [address] [place] [address] Performed By: #### 2 4323-8 ####[facility] LABCLIA [id number] [place] [address] ALT [Catalytic activity/Vol] 11 U/L Normal 7-38 [facility] Comment on above: Order Comment: Speci men Type: BLOOD SPECIMENOrdering Facility: [facility] Address: [address] [place] [address] Performed By: #### 2 4323-8 ####[facility] LABCLIA [id number] [place] [address] Anion gap [Moles/Vol] 9 mmol/L Normal 9-18 [facility] Comment on above: Order Comment: Speci men Type: BLOOD SPECIMENOrdering Facility: [facility] Address: [address] [place] [address] Performed By: #### 2 4323-8 ####[facility] LABCLIA [id number] [place] [address] AST [Catalytic activity/Vol] 17 U/L Normal 13-35 [facility] Comment on above: Order Comment: Speci men Type: BLOOD SPECIMENOrdering Facility: [facility] Address: [address] [place] [address] Performed By: #### 2 4323-8 ####[facility] LABCLIA [id number] [place] [address] Bilirubin [Mass/Vol] 0.5 mg/dL Normal 0.2-1.3 [facility] Comment on above: Order Comment: Speci men Type: BLOOD SPECIMENOrdering Facility: [facility] Address: [address] [place] [address] Performed By: #### 2 4323-8 ####[facility] LABCLIA [id number] [place] [address] Calcium [Mass/Vol] 9.5 mg/dL Normal 8.5-10.2 [facility] Comment on above: Order Comment: Speci men Type: BLOOD SPECIMENOrdering Facility: [facility] Address: [address] [place] [address] Performed By: #### 2 4323-8 ####[facility] LABCLIA [id number] [place] [address] Chloride [Moles/Vol] 106 mmol/L High 97-105 [facility] Comment on above: Order Comment: Speci men Type: BLOOD SPECIMENOrdering Facility: [facility] Address: [address] [place] [address] Performed By: #### 2 4323-8 ####[facility] LABCLIA [id number] [place] [address] CO2 [Moles/Vol] 26 mmol/L Normal 22-30 [facility] Comment on above: Order Comment: Speci men Type: BLOOD SPECIMENOrdering Facility: [facility] Address: [address] [place] [address] Performed By: #### 2 4323-8 ####[facility] LABCLIA [id number] [place] [address] Creatinine [Mass/Vol] 0.95 mg/dL Normal 0.58-0.96 [facility] Comment on above: Order Comment: Speci men Type: BLOOD SPECIMENOrdering Facility: [facility] Address: [address] [place] [address] Performed By: #### 2 4323-8 ####[facility] LABCLIA [id number] [place] [address] Creatinine and Glomerular filtration rate.predicted panel (S/P/Bld) 79 mL/min/1.73m??? Normal >=60 [facility] Comment on above: Order Comment: Rylee chauhan Type: BLOOD SPECIMENOrdering Facility: [facility] Address: [address] [place] [address] Result Comment: Priscila mated Glomerular Filtration Rate (eGFR) is calculated using the 2020 CKD-EPI creatinine equation. This equation utilizes serum creatinine, sex, and age as parameters. The creatinine assay has traceable calibration to isotope dilution-mass spectrometry. Refer to KDIGO guidelines for clinical interpretation. In patients with unstable renal function, e.g. those with acute kidney injury, the eGFR may not accurately reflect actual GFR. Performed By: #### 2 4323-8 ####[facility] LABCLIA [id number] [place] [address] Glucose [Mass/Vol] 89 mg/dL Normal 74-99 [facility] Comment on above: Order Comment: Rylee chauhan Type: BLOOD SPECIMENOrdering Facility: [facility] Address: [address] [place] [address] Result Comment: The [place] [employer] (ADA) provides guidance for cutoff values for fasting glucose and random glucose. The ADA defines fasting as no caloric intake for at least 8 hours. Fasting plasma glucose results between 100 to 125 mg/dL indicate increased risk for diabetes (prediabetes). Fasting plasma glucose results greater than or equal to 126 mg/dL meet the criteria for diagnosis of diabetes. In the absence of unequivocal hyperglycemia, results should be confirmed by repeat testing. In a patient with classic symptoms of hyperglycemia or hyperglycemic crisis, random plasma glucose results greater than or equal to 200 mg/dL meet the criteria for diagnosis of diabetes. Reference: Standards of Medical Care in Diabetes 2016, [place] [employer]. Diabetes Care. 2016.39(Suppl 1). Performed By: #### 2 4323-8 ####[facility] LABCLIA [id number] [place] [address] Potassium [Moles/Vol] 3.6 mmol/L Low 3.7-5.1 [facility] Comment on above: Order Comment: Speci men Type: BLOOD SPECIMENOrdering Facility: [facility] Address: [address] [place] [address] Performed By: #### 2 4323-8 ####[facility] LABCLIA [id number] [place] [address] Protein [Mass/Vol] 7.4 g/dL Normal 6.3-8.0 [facility] Comment on above: Order Comment: Speci men Type: BLOOD SPECIMENOrdering Facility: [facility] Address: [address] [place] [address] Performed By: #### 2 4323-8 ####[facility] LABCLIA [id number] [place] [address] Sodium [Moles/Vol] 141 mmol/L Normal 136-144 [facility] Comment on above: Order Comment: Speci men Type: BLOOD SPECIMENOrdering Facility: [facility] Address: [address] [place] [address] Performed By: #### 2 4323-8 ####[facility] LABCLIA [id number] [place] [address] Urea nitrogen [Mass/Vol] 14 mg/dL Normal 7-21 [facility] Comment on above: Order Comment: Speci men Type: BLOOD SPECIMENOrdering Facility: [facility] Address: [address] [place] [address] Performed By: #### 2 4323-8 ####[facility] LABCLIA [id number] [place] [address] Albumin [Mass/Vol] 4.5 g/dL 3.9 - 4.9 g/dL [facility] ALP [Catalytic activity/Vol] 58 U/L 34 - 123 U/L [facility] ALT [Catalytic activity/Vol] 11 U/L 7 - 38 U/L [facility] Anion gap [Moles/Vol] 9 mmol/L 9 - 18 mmol/L [facility] AST [Catalytic activity/Vol] 17 U/L 13 - 35 U/L [facility] Bilirubin [Mass/Vol] 0.5 mg/dL 0.2 - 1 .3 mg/dL [facility] Calcium [Mass/Vol] 9.5 mg/dL 8.5 - 10. 2 mg/dL [facility] Chloride [Moles/Vol] 106 mmol/L High 97 - 10 5 mmol/L [facility] CO2 [Moles/Vol] 26 mmol/L 22 - 30 mmol/L [facility] Creatinine [Mass/Vol] 0.95 mg/dL 0.58 - 0.96 mg/dL [facility] Estimated Glomerular Filtration Rate 79 mL/min/1.73m >=60 mL/min/1.73m [facility] Glucose [Mass/Vol] 89 mg/dL 74 - 99 mg/dL [facility] Potassium [Moles/Vol] 3.6 mmol/L Low 3.7 - 5.1 mmol/L [facility] Protein [Mass/Vol] 7.4 g/dL 6.3 - 8.0 g/dL [facility] Sodium [Moles/Vol] 141 mmol/L 136 - 144 mmol/L [facility] Urea nitrogen [Mass/Vol] 14 mg/dL 7 - 21 mg/dL [facility] HBV core Ab Ser Qlon 023 HBV core Ab Ql (S) Negative Normal Negative [facility] Comment on above: Order Comment: Rylee chauhan Type: BLOOD SPECIMENOrdering Facility: [facility] Address: [address] [place] [address] Result Comment: No e vidence of current or past infection with Hepatitis B virus. Should recent infection be suspected, repeat testing may be considered 3-4 weeks after this draw. Performed By: #### 1 6933-4, 5195-3, 78819-6 ####[facility] LABCLIA [id number] [facility] [place] [address] [place] HBV surface Ab Ql (S)on 09-10 HBV surface Ab Qn (S) 528.76 mIU/mL [facility] HBV surface Ab Qn (S) 528.76 mIU/mL Normal [facility] Comment on above: Order Comment: Rylee chauhan Type: BLOOD SPECIMENOrdering Facility: [facility] Address: [address] [place] [address] Result Comment: <8 m IU/mL: No serological evidence of immunity to Hepatitis B Virus. >/= 8 to <12 mIU/mL: No serological evidence of immunity to Hepatitis B Virus. >/= 12 mIU/mL: Consistent with serological evidence of immunity to Hepatitis B Virus. Performed By: #### 1 6933-4, 5195-3, 57706-8 ####[facility] LABCLIA [id number] [place] [address] [place] HBV surface Ab Ser Qlon 09-10 HBV surface Ab Ql (S) Positive Normal [facility] Comment on above: Order Comment: Speci men Type: BLOOD SPECIMENOrdering Facility: [facility] Address: [address] [place] [address] Result Comment: Cons istent with serological evidence of immunity to Hepatitis B Virus. Performed By: #### 1 6933-4, 5195-3, 54599-2 ####[facility] LABCLIA [id number] [place] [address] [place] HBV surface Ag Ser Qlon 09-10 HBV surface Ag Ql (S) Negative Normal Negative [facility] Comment on above: Order Comment: Evai gissel Type: BLOOD SPECIMENOrdering Facility: [facility] Address: [address] [place] [address] Performed By: #### 1 6933-4, 5195-3, 24295-4 ####[facility] LABCLIA [id number] [address] [place] HCV Ab Ser Qlon 09-25-2023 HCV Ab Ql (S) Negative Normal Negative [facility] Comment on above: Order Comment: Speci men Type: BLOOD SPECIMENOrdering Facility: [facility] Address: [address] [place] [address] Result Comment: The result suggests no evidence of active infection with Hepatitis C virus. Should recent infection be suspected, repeat testing may be considered 4-6 weeks after this draw. Performed By: #### 1 6128-1 ####[facility] LABCLIA [id number] [place] [address] [place] HEP B CORE AB TOTALon 2022 HBV core Ab Ql (S) Negative Negative [facility] HEP B SURF ABon 09-25-2023 HBV surface Ab Ql (S) Positive [facility] HEP B SURF AG SCRNon 023 HBV surface Ag Ql (S) Negative Negative [facility] HEPATITIS C ANTIBODY IA WITH CONFIRMATIONon 09-25-2023 HCV Ab Ql (S) Negative Negative [facility] B-HCG SerPl-aCncon 3 HCG.beta subunit Qn m[IU]/mL Normal <5.0 [facility] Comment on above: Order Comment: Speci men Type: BLOOD SPECIMENOrdering Facility: [facility] Address: [address] [place] [address] Result Comment: Nega tive Performed By: #### 2 1198-7 ####[facility] LABCLIA [id number] [place] [address] [place] IgG SerPl-mCncon 09-24-2023 IgG [Mass/Vol] 1281 mg/dL Normal 700-1600 [facility] Comment on above: Order Comment: Speci men Type: BLOOD SPECIMENOrdering Facility: [facility] Address: [address] [place] [address] Performed By: #### 2 472-9, 2465-3 ####[facility] LABCLIA [id number] [place] [address] [place] IgM SerPl-mCncon 09-24-2023 IgM [Mass/Vol] 128 mg/dL Normal 40-230 [facility] Comment on above: Order Comment: Speci men Type: BLOOD SPECIMENOrdering Facility: [facility] Address: [address] [place] [address] Performed By: #### 2 472-9, 2465-3 ####[facility] LABCLIA [id number] [place] [address] [place] [facility] SMOOTH MARTINEZ ([id number]) 1985 F Date Time Provider Department 08/27/[address] [facility] During your visit today, we recorded the following information about you: Janice Lane MD 08/27/2023 2:32 PM Signed I informed the patient that her pelvic ultrasound showed a possible uterine polyp. Hysteroscopy was recommended. I advised patient schedule an appoint with gynecology soon as possible. Referral was placed. Patient expressed understanding Allergies As of Date: 08/27/2023 Noted Allergy Reaction GLUTEN 03/19/2019 14 - Other: See Comments 4 - Hives 9 - Itching Comments: chest pain, rashes, constipation Other reaction(s): Other (See Comments) Constipation ? Chest pain ? Boils ?Stomach ?upset chest pain, rashes, constipation LECITHIN, SOY 08/14/2022 8 - GI Upset 16 - Unknown SOY 11/15/2019 5 - Intolerance Comments: Other reaction(s): Headaches, Other (See Comments) LECITHIN 03/19/2019 14 - Other: See Comments 16 - Unknown 9 - Itching 8 - GI Upset Comments: More constipated More constipated Other reaction(s): Nausea And Vomiting More constipated More constipated Date Reviewed: 08/19/2023 Reviewed by: Germania Wilkinson MD - Fully Assessed Reason for Visit: Results [95] Primary Visit Diagnosis:Uterine polyp [N84.0] Order(s):CONSULT TO SIGN PAINTER [9096] Order #: [id number]: 1 FUTURE Prescriptions as of 08/27/2023 - ergocalciferol 50,000 unit capsule (VITAMIN D2, DRISDOL) Take 1 capsule by mouth one time a week. - magnesium oxide (MAG-OX) 400 mg (241.3 mg magnesium) tablet Take 1 tablet by mouth daily at bedtime. - ketoconazole (NIZORAL) 2 % cream Apply to affected area once daily. Apply qd - ketoconazole (NIZORAL) 2 % shampoo 2-3 times weekly as body wash - traZODone (DESYREL) 50 mg tablet Take 1 tablet by mouth at bedtime as needed. - tiZANidine (ZANAFLEX) 2 mg tablet Take 1 tablet by mouth every 8 hours as needed. - dalfampridine ER (AMPYRA) 10 mg tablet Take 1 tablet by mouth twice daily. - ocrelizumab (OCREVUS) 30 mg/mL soln injection Ocrelizumab (Ocrevus) 30 mg/mL Solution Active 30 MG IV EVERY 6 MONTHS April 02, 2022 5:21pm pt. recieves infusion Q6M for MS - VITAMIN B COMPLEX ORAL Take by mouth. - melatonin 3 mg tablet Take 1 tablet by mouth once daily as needed. - fluticasone (FLONASE) 50 mcg/actuation nasal spray Use 1 [place] in each nostril once daily. Problem List As Of Date 08/27/2023 Noted Resolved Multiple sclerosis (HCC) [G35] 11/15/2019 Chronic insomnia [F51.04] 01/04/2020 AMA (advanced maternal age) primigravida 35+, s*2020 01/11/2021 History of loop electrosurgical excision proced*2020 01/11/2021 Poor growth affecting management of mothe*12/25/2020 01/11/2021 Encounter for supervision of normal first pregn*01/02/2021 01/11/2021 Low maternal weight gain, third trimester [O26.*01/02/2021 01/11/2021 GBS (group B Streptococcus carrier), +RV cultur*01/02/2021 01/11/2021 Abnormal antibody titer [R76.0] 01/08/2021 Encounter for induction of labor [Z34.90] 01/08/2021 01/11/2021 NO SHOW 01/22/2021 04/17/2021 Bilateral hearing loss [H91.93] 07/14/2018 Cognitive complaints [R41.9] 03/03/2019 07/17/2023 Constipation [K59.00] 10/06/2019 07/17/2023 Costochondritis, acute [M94.0] 04/17/2021 04/20/2021 Edema of lower extremity [R60.0] 04/17/2021 04/20/2021 Gait difficulty [R26.9] 10/06/2019 07/17/2023 Hypoglycemia [E16.2] 03/07/2021 07/17/2023 Neurogenic bladder [N31.9] 07/14/2020 Obstructive sleep apnea [G47.33] 07/28/2017 07/17/2023 Optic neuritis [H46.9] 08/21/2019 Ovarian cyst, complex [N83.299] 04/14/2018 Ovarian torsion [N83.519] 04/14/2018 Restless leg syndrome [G25.81] 07/28/2017 Somnolence, daytime [R40.0] 07/28/2017 04/20/2021 Syncope and collapse [R55] 12/04/2018 07/17/2023 Cognitive communication deficit [R41.841] 07/22/2022 07/17/2023 Encounter Status:Closed by JANICE LANE on 08/27/23 Normal [facility] PELVIC US WHIon 08-26-2023 [facility] CBC W Auto Differential pane l (Bld)on 08-19-2023 Basophils (Bld) [#/Vol] 0.05 10*3/uL Normal <0.11 [facility] Comment on above: Order Comment: Speci men Type: BLOOD SPECIMENOrdering Facility: [facility] Address: [address] [place] [address] Performed By: #### 5 7021-8 ####[facility]ENTER[facility]CIAN[facility] LABCLIA [id number] [address] [facility] Basophils/100 WBC (Bld) 0.7 % Normal [facility] Comment on above: Order Comment: Speci men Type: BLOOD SPECIMENOrdering Facility: [facility] Address: [address] [place] [address] Performed By: #### 5 7021-8 ####PA[facility]AN [facility] LABCLIA [id number] [place] [address] [place] Differential cell count method Nom (Bld) Auto Normal [facility] Comment on above: Order Comment: Speci men Type: BLOOD SPECIMENOrdering Facility: [facility] Address: [address] [place] [address] Performed By: #### 5 7021-8 ####[facility] LABCLIA [id number] [place] [id number] [place] Eosinophils (Bld) [#/Vol] 0.10 10*3/uL Normal <0.46 [facility] Comment on above: Order Comment: Speci men Type: BLOOD SPECIMENOrdering Facility: [facility] Address: [address] [place] [address] Performed By: #### 5 7021-8 ####[facility] LABIA [id number] [place] [id number] [place] Eosinophils/100 WBC (Bld) 1.5 % Normal [facility] Comment on above: Order Comment: Speci men Type: BLOOD SPECIMENOrdering Facility: [facility] Address: [address] [place] [address] Performed By: #### 5 7021-8 ####[facility] LABIA [id number] [place] [id number] [place] Erythrocyte distribution width (RBC) [Ratio] 24.4 % High 11.5-15.0 [facility] Comment on above: Order Comment: Speci men Type: BLOOD SPECIMENOrdering Facility: [facility] Address: [address] [place] [address] Performed By: #### 5 7021-8 ####[facility] LABIA [id number] [place] [id number] [place] Hematocrit (Bld) [Volume fraction] 35.6 % Low 36.0-46.0 [facility] Comment on above: Order Comment: Speci men Type: BLOOD SPECIMENOrdering Facility: [facility] Address: [address] [place] [address] Performed By: #### 5 7021-8 ####[facility] LABCLIA [id number] [place] [address] [place] Hemoglobin (Bld) [Mass/Vol] 10.6 g/dL Low 11.5-15.5 [facility] Comment on above: Order Comment: Speci men Type: BLOOD SPECIMENOrdering Facility: [facility] Address: [address] [place] [address] Performed By: #### 5 7021-8 ####[facility] LABIA [id number] [place] [address] [place] Immature granulocytes (Bld) [#/Vol] 10*3/uL Normal <0.10 [facility] Comment on above: Order Comment: Speci men Type: BLOOD SPECIMENOrdering Facility: [facility] Address: [address] [place] [address] Performed By: #### 5 7021-8 ####[facility] LABIA [id number] [place] [id number] [place] Immature granulocytes/100 WBC (Bld) 0.3 % Normal [facility] Comment on above: Order Comment: Speci men Type: BLOOD SPECIMENOrdering Facility: [facility] Address: [address] [place] [address] Performed By: #### 5 7021-8 ####[facility] LABIA [id number] [place] [id number] [place] Lymphocytes (Bld) [#/Vol] 2.27 10*3/uL Normal 1.00-4.00 [facility] Comment on above: Order Comment: Speci men Type: BLOOD SPECIMENOrdering Facility: [facility] Address: [address] [place] [address] Performed By: #### 5 7021-8 ####[facility] LABIA [id number] [place] [address] [place] Lymphocytes/100 WBC (Bld) 32.9 % Normal [facility] Comment on above: Order Comment: Speci men Type: BLOOD SPECIMENOrdering Facility: [facility] Address: [address] [place] [address] Performed By: #### 5 7021-8 ####AMHMARCIANO [facility] LABIA [id number] [place] [id number] [place] MCH (RBC) [Entitic mass] 22.1 pg Low 26.0-34.0 [facility] Comment on above: Order Comment: Speci men Type: BLOOD SPECIMENOrdering Facility: [facility] Address: [address] [place] [address] Performed By: #### 5 7021-8 ####AMHERSLibby [facility]IA [id number] [place] [id number] [place] MCHC (RBC) [Mass/Vol] 29.8 g/dL Low 30.5-36.0 [facility] Comment on above: Order Comment: Speci men Type: BLOOD SPECIMENOrdering Facility: [facility] Address: [address] [place] [address] Performed By: #### 5 7021-8 ####[facility]ENTERMARCIANO [facility]IA [id number] [place] [id number] [place] MCV (RBC) [Entitic vol] 74.3 fL Low 80.0-100.0 [facility] Comment on above: Order Comment: Speci men Type: BLOOD SPECIMENOrdering Facility: [facility] Address: [address] [place] [address] Performed By: #### 5 7021-8 ####AMHMARCIANO [facility] [id number] [place] [id number] [place] Monocytes (Bld) [#/Vol] 0.52 10*3/uL Normal <0.87 [facility] Comment on above: Order Comment: Speci men Type: BLOOD SPECIMENOrdering Facility: [facility] Address: [address] [place] [address] Performed By: #### 5 7021-8 ####AMHURIT [facility] [id number] [place] [address] [place] Monocytes/100 WBC (Bld) 7.5 % Normal [facility] Comment on above: Order Comment: Speci men Type: BLOOD SPECIMENOrdering Facility: [facility] Address: [address] [place] [address] Performed By: #### 5 7021-8 ####[facility] LABIA [id number] [place] [address] [place] Neutrophils (Bld) [#/Vol] 3.93 10*3/uL Normal 1.45-7.50 [facility] Comment on above: Order Comment: Speci men Type: BLOOD SPECIMENOrdering Facility: [facility] Address: [address] [place] [address] Performed By: #### 5 7021-8 ####[facility] LABIA [id number] [place] [id number] [place] Neutrophils/100 WBC (Bld) 57.1 % Normal [facility] Comment on above: Order Comment: Speci men Type: BLOOD SPECIMENOrdering Facility: [facility] Address: [address] [place] [address] Performed By: #### 5 7021-8 ####[facility] CENTERLibby [facility] [id number] [place] [address] [place] Nucleated RBC (Bld) [#/Vol] 10*3/uL Normal <0.01 [facility] Comment on above: Order Comment: Speci men Type: BLOOD SPECIMENOrdering Facility: [facility] Address: [address] [place] [address] Performed By: #### 5 7021-8 ####[facility]ENTERT [facility]IA [id number] [place] [id number] [place] Nucleated RBC/100 WBC (Bld) [Ratio] 0.0 /100 WBC Normal [facility] Comment on above: Order Comment: Speci men Type: BLOOD SPECIMENOrdering Facility: [facility] Address: [address] [place] [address] Performed By: #### 5 7021-8 ####AMHERST [facility] LABCLIA [id number] [place] [address] [place] Platelet mean volume (Bld) [Entitic vol] Normal [facility] Comment on above: Order Comment: Speci men Type: BLOOD SPECIMENOrdering Facility: [facility] Address: [address] [place] [address] Result Comment: Unab le to Report. Performed By: #### 5 7021-8 ####[facility] [id number] [place] [id number] [place] Platelets (Bld) [#/Vol] 213 10*3/uL Normal 150-400 [facility] Comment on above: Order Comment: Speci men Type: BLOOD SPECIMENOrdering Facility: [facility] Address: [address] [place] [address] Result Comment: No c lot detected. Performed By: #### 5 7021-8 ####[facility] CENTERLibby [facility] [id number] [place] [address] [place] RBC (Bld) [#/Vol] 4.79 10*6/uL Normal 3.90-5.20 [facility] Comment on above: Order Comment: Speci men Type: BLOOD SPECIMENOrdering Facility: [facility] Address: [address] [place] [address] Performed By: #### 5 7021-8 ####[facility]IA [id number] [place] [id number] [place] WBC (Bld) [#/Vol] 6.89 10*3/uL Normal 3.70-11.00 [facility] Comment on above: Order Comment: Speci men Type: BLOOD SPECIMENOrdering Facility: [facility] Address: [address] [place] [address] Performed By: #### 5 7021-8 ####[facility] LABCLIA [id number] [place] [id number] [place] CNOVon 08-19-2023 CNOV Office Visit (NEUR) SMOOTH MARTINEZ ([id number]) 1985 F Date Time Provider Department 08/19/23 9:00 AM GERMANIA [facility] During your visit today, we recorded the following information about you: Pulse Blood pressure Weight Height 96/minute 104/77 56.7 kg 1.689 m Germania Wilkinson MD 08/19/2023 4:26 PM Signed [facility] New Patient Evaluation PATIENT NAME: Smooth Martinez DATE OF SERVICE: August 19, 2023 CONSULTING PROVIDER: Jose Raul Santana MD REASON FOR CONSULT: Jose Raul Santana MDsends the patient for an opinion about insomnia, RLS. My findings and recommendations will be transmitted electronically via shared medical record to the consulting provider. HPI: Smooth Martinez is a 38 year old female here for evaluation of insomnia, RLS Sleep-related history: Diagnosed with MS in 2006- on infusions. She has history of chronic insomnia- since childhood. Had trouble sleeping in high school- never a good sleeper. Used to take care of her younger siblings at age 9. When tired, did not have opportunity of fall sleep as she was taking care of her younger siblings. Day time fatigue+ Does not take a nap. SLEEP-WAKE SCHEDULE Bedtime: 11 PM- 2 AM She has a hard time falling asleep. Time to fall asleep: 1 hour- 3 hours Wake time: 9 AM, without an alarm. If she wakes up in middle of night, has trouble going back to sleep. After falling asleep: she wakes up 1 time(s) per night, because of the need to urinate. On weekends, she maintains the same sleep schedule. SLEEP-RELATED DETAILS Preferred sleep position: back Breathing disturbances and other behaviors during sleep: mild snoring only when very tired Bruxism: Yes GERD or aspiration: No Waking up with heart pounding or racing: No Anxiety or rumination: No She reports having an urge to move the legs. The urge to move the legs only occurs in the evening or nighttime. The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 well-hydrated, well nourished. SKIN: Skin color, texture, turgor normal, no suspicious rashes or lesions HEAD: No significant findings. EYES: PERRLA, EOMI EARS: External ears normal, canals clear NOSE/SINUSES: Nares normal. Septum midline. OROPHARYNX: Lips, mucosa, and tongue normal, teeth and gums normal, oropharynx normal NECK: Supple, full range of motion, no lymphadenopathy, normal thyroid, no carotid bruits, and no JVD BACK: Back symmetric, Normal curvature, ROM normal, No C (more content not included)... Normal [facility] Comprehensive metabolic 2000 panelon 07-17-2023 Albumin [Mass/Vol] 4.6 g/dL Normal 3.9-4.9 [facility] Comment on above: Order Comment: Speci men Type: BLOOD SPECIMENOrdering Facility: [facility] Address: [place] [address] Performed By: #### 2 276-4, 26606-1, 3015-3, 23337-2 ####[facility] LABIA [id number] [place] [address] [place] ALP [Catalytic activity/Vol] 49 U/L Normal 34-123 [facility] Comment on above: Order Comment: Speci men Type: BLOOD SPECIMENOrdering Facility: [facility] Address: [address] [place] [address] Performed By: #### 2 276-4, 86012-7, 3015-3, 37988-9 ####[facility] LABCLIA [id number] [place] [id number] [place] ALT [Catalytic activity/Vol] 10 U/L Normal 7-38 [facility] Comment on above: Order Comment: Speci men Type: BLOOD SPECIMENOrdering Facility: [facility] Address: [address] Performed By: #### 2 276-4, 01820-5, 3015-3, ####[facility] LABCLIA [id number] [place] [address] [place] Anion gap [Moles/Vol] 9 mmol/L Normal 9-18 [facility] Comment on above: Order Comment: Speci men Type: BLOOD SPECIMENOrdering Facility: [facility] Address: [place] [address] Performed By: #### 2 276-4, 16015-7, 3, ####[facility] LABCLIA [id number] [place] [address] [place] AST [Catalytic activity/Vol] 17 U/L Normal 13-35 [facility] Comment on above: Order Comment: Speci men Type: BLOOD SPECIMENOrdering Facility: [facility] Address: [address] Performed By: #### 2 276-4, 35742-4, 3, ####[facility] LABCLIA [id number] [place] [address] [place] Bilirubin [Mass/Vol] 0.5 mg/dL Normal 0.2-1.3 [facility] Comment on above: Order Comment: Speci men Type: BLOOD SPECIMENOrdering Facility: [facility] Address: [place] [id number] Performed By: #### 2 276-4, 73891-3, 3, ####[facility] LABCLIA [id number] [place] [id number] [place] Calcium [Mass/Vol] 9.4 mg/dL Normal 8.5-10.2 [facility] Comment on above: Order Comment: Speci men Type: BLOOD SPECIMENOrdering Facility: [facility] Address: [place] [address] Performed By: #### 2 276-4, 02019-2, 3015-3, ####[facility] LABCLIA [id number] [place] [address] [place] Chloride [Moles/Vol] 106 mmol/L High 97-105 [facility] Comment on above: Order Comment: Speci men Type: BLOOD SPECIMENOrdering Facility: [facility] Address: [address] [place] [address] Performed By: #### 2 276-4, 92013-3, 3, ####[facility] LABCLIA [id number] [place] [address] [place] CO2 [Moles/Vol] 24 mmol/L Normal 22-30 [facility] Comment on above: Order Comment: Speci men Type: BLOOD SPECIMENOrdering Facility: [facility] Address: [place] [address] Performed By: #### 2 276-4, 36656-2, 3, ####[facility] LABIA [id number] [place] [address] [place] Creatinine [Mass/Vol] 0.94 mg/dL Normal 0.58-0.96 [facility] Comment on above: Order Comment: Speci men Type: BLOOD SPECIMENOrdering Facility: [facility] Address: [address] Performed By: #### 2 276-4, 54323-5, 3, ####[facility] LABCLIA [id number] [place] [address] [place] Creatinine and Glomerular filtration rate.predicted panel (S/P/Bld) 80 mL/min/1.73m??? Normal >=60 [facility] Comment on above: Order Comment: Rylee chauhan Type: BLOOD SPECIMENOrdering Facility: [facility] Address: [place] [place] [id number] Result Comment: Priscila mated Glomerular Filtration Rate (eGFR) is calculated using the 2020 CKD-EPI creatinine equation. This equation utilizes serum creatinine, sex, and age as parameters. The creatinine assay has traceable calibration to isotope dilution-mass spectrometry. Refer to KDIGO guidelines for clinical interpretation. In patients with unstable renal function, e.g. those with acute kidney injury, the eGFR may not accurately reflect actual GFR. Performed By: #### 2 276-4, 42639-6, 3015-3, 51040-2 ####[facility] LABCLIA [id number] [place] [id number] [place] Glucose [Mass/Vol] 80 mg/dL Normal 74-99 [facility] Comment on above: Order Comment: Rylee chauhan Type: BLOOD SPECIMENOrdering Facility: [facility] Address: [address] [place], [place] [address] Result Comment: The [place] Diabetes Association (ADA) provides guidance for cutoff values for fasting glucose and random glucose. The ADA defines fasting as no caloric intake for at least 8 hours. Fasting plasma glucose results between 100 to 125 mg/dL indicate increased risk for diabetes (prediabetes). Fasting plasma glucose results greater than or equal to 126 mg/dL meet the criteria for diagnosis of diabetes. In the absence of unequivocal hyperglycemia, results should be confirmed by repeat testing. In a patient with classic symptoms of hyperglycemia or hyperglycemic crisis, random plasma glucose results greater than or equal to 200 mg/dL meet the criteria for diagnosis of diabetes. Reference: Standards of Medical Care in Diabetes 2016, [place] Diabetes Association. Diabetes Care. 2016.39(Suppl 1). Performed By: #### 2 276-4, 45590-3, 3015-3, 45850-0 ####[facility] LABCLIA [id number] [address] [address] [place] Potassium [Moles/Vol] 4.4 mmol/L Normal 3.7-5.1 [facility] Comment on above: Order Comment: Speci men Type: BLOOD SPECIMENOrdering Facility: [facility] Address: [place] [address] Performed By: #### 2 276-4, 98716-0, 3015-3, 19090-9 ####[facility] LABCLIA [id number] [place] [address] [place] Protein [Mass/Vol] 7.7 g/dL Normal 6.3-8.0 [facility] Comment on above: Order Comment: Speci men Type: BLOOD SPECIMENOrdering Facility: [facility] Address: [place] [address] Performed By: #### 2 276-4, 89366-9, 3, ####[facility] LABCLIA [id number] [place] [address] [place] Sodium [Moles/Vol] 139 mmol/L Normal 136-144 [facility] Comment on above: Order Comment: Speci men Type: BLOOD SPECIMENOrdering Facility: [facility] Address: [address] [place] [address] Performed By: #### 2 276-4, 12811-7, 3, ####[facility] LABCLIA [id number] [place] [address] [place] Urea nitrogen [Mass/Vol] 13 mg/dL Normal 7-21 [facility] Comment on above: Order Comment: Speci men Type: BLOOD SPECIMENOrdering Facility: [facility] Address: [address] [place] [address] Performed By: #### 2 276-4, 70883-4, 3015-3, 75730-5 ####[facility] LABCLIA [id number] [place] [id number] [place] Ferritin SerPl-mCncon 2022 Ferritin [Mass/Vol] 15.8 ng/mL Normal 14.7-205.1 [facility] Comment on above: Order Comment: Speci men Type: BLOOD SPECIMENOrdering Facility: [facility] Address: [address] [place] [address] Performed By: #### 2 276-4, 03421-4, 3016-3, 23562-2 ####[facility] LABCLIA [id number] [place] [address] [place] Iron and Iron binding capaci ty panelon 07-17-2023 Iron [Mass/Vol] 321 ug/dL High 41-186 [facility] Comment on above: Order Comment: Speci men Type: BLOOD SPECIMENOrdering Facility: [facility] Address: [address] [place] [address] Performed By: #### 2 276-4, 63034-9, 6-3, 94853-4 ####[facility] LABCLIA [id number] [place] [address] [place] Iron binding capacity [Mass/Vol] 400 ug/dL High 232-386 [facility] Comment on above: Order Comment: Speci men Type: BLOOD SPECIMENOrdering Facility: [facility] Address: [address] [place] [address] Performed By: #### 2 276-4, 13245-0, 3016-3, 40265-6 ####[facility] LABCLIA [id number] [place] [address] [place] Iron/TIBC [Molar ratio] 80.3 % High 15.0-57.0 [facility] Comment on above: Order Comment: Speci men Type: BLOOD SPECIMENOrdering Facility: [facility] Address: [address] [place] [address] Performed By: #### 2 276-4, 55186-7, 3016-3, 31180-5 ####[facility] LABCLIA [id number] [place] [id number] [place] TSH SerPl-aCncon 07-17-2023 TSH Qn 1.410 m[IU]/L Normal 0.270-4.200 [facility] Comment on above: Order Comment: Speci men Type: BLOOD SPECIMENOrdering Facility: [facility] Address: [address] [place] [address] Result Comment: If t he patient is , TSH reference range varies by gestational period: First Trimester (weeks 9-12): 0.180-2.990 mIU/L Second Trimester: 0.110-3.980 mIU/L Third Trimester: 0.480-4.710 mIU/L Rich Patrick et al. A Practical Approach for the Verifications and Determination of Site- and Trimester-Specific Reference Intervals for Thyroid Function tests in . Thyroid, 2019:29:3:412-420. Vivek Null, et al. 2017 Guidelines of the [place] Thyroid Association for the Diagnosis and Management of Thyroid Disease during and the . Thyroid, 2017:27:3:315-389. Performed By: #### 2 276-4, 66155-6, 3016-3, 29887-8 ####[facility] LABCLIA [id number] [address] [place] Christiano 03-31-2023 CNPN Telephone (NIQ) SMOOTH MARTINEZ ([id number]) 1985 F Date Time Provider Department 03/31/23 JOSE RAUL SANTANA During your visit today, we recorded the following information about you: Alonzo Blanco Pss 03/31/2023 3:45 PM Signed Received call from patient to discuss getting her next infusion in [place]. Explained the potential concerns from the drug company regarding her [place] Medicaid possibly not covering the infusion. Patient is currently in [place] and has applied for [place] Medicaid. She believes the facility in [place] will accept this since she had this coverage last time she went there. She said she was told application can take up to 45 days to process, but they can backdate her start date. Given this information, patient wishes to proceed with transferring infusions to requested hospital in [place]. Request sent to care team for orders. Allergies As of Date: 03/31/2023 Noted Allergy Reaction GLUTEN 11/15/2019 14 - Other: See Comments Comments: chest pain, rashes, constipation LECITHIN, SOY 08/14/2022 8 - GI Upset 16 - Unknown SOY 11/15/2019 5 - Intolerance Date Reviewed: 02/12/2023 Reviewed by: Tani Sorto - Fully Assessed Reason for Visit: Patient Update [1234] Prescriptions as of 03/31/2023 - azithromycin (ZITHROMAX Z-CY) 250 mg tablet 2 tablets by mouth first day then 1 tablet the next 4 days - ergocalciferol 50,000 unit capsule (VITAMIN D2, DRISDOL) Take 1 capsule by mouth one time a week. - tiZANidine (ZANAFLEX) 2 mg tablet Take 1 tablet by mouth every 8 hours as needed. - dalfampridine ER (AMPYRA) 10 mg tablet Take 1 tablet by mouth twice daily. - ocrelizumab (OCREVUS) 30 mg/mL soln injection Ocrelizumab (Ocrevus) 30 mg/mL Solution Active 30 MG IV EVERY 6 MONTHS April 02, 2022 5:21pm pt. recieves infusion Q6M for MS - polyethylene glycol, bulk, 100 % powd as directed. - VITAMIN B COMPLEX ORAL Take by mouth. - calcium carbonate (CALCIUM 300 ORAL) Take by mouth once daily. - melatonin 3 mg tablet Take 1 tablet by mouth once daily as needed. - ketoconazole (NIZORAL) 2 % cream Apply to affected area once daily. Apply qd - fluticasone (FLONASE) 50 mcg/actuation nasal spray Use 1 [place] in each nostril once daily. - MAGNESIUM ORAL Take 1 tablet by mouth twice daily. - Jqefxkce-Sd-Nnf-Fe-F A ( VITAMIN) tab Take 1 tablet by mouth once daily. - Ascorbic Acid 100 mg chew Take 100 mg by mouth once daily. Problem List As Of Date 03/31/2023 Noted Resolved Multiple sclerosis (HCC) [G35] 11/15/2019 Chronic insomnia [F51.04] 01/04/2020 AMA (advanced maternal age) primigravida 35+, s*2020 01/11/2021 History of loop electrosurgical excision proced*2020 01/11/2021 Poor growth affecting management of mothe*12/25/2020 01/11/2021 Encounter for supervision of normal first pregn*01/02/2021 01/11/2021 Low maternal weight gain, third trimester [O26.*01/02/2021 01/11/2021 GBS (group B Streptococcus carrier), +RV cultur*01/02/2021 01/11/2021 Abnormal antibody titer [R76.0] 01/08/2021 Encounter for induction of labor [Z34.90] 01/08/2021 01/11/2021 NO SHOW 01/22/2021 04/17/2021 Bilateral hearing loss [H91.93] 07/14/2018 Cognitive complaints [R41.9] 03/03/2019 Constipation [K59.00] 10/06/2019 Costochondritis, acute [M94.0] 04/17/2021 04/20/2021 Edema of lower extremity [R60.0] 04/17/2021 04/20/2021 Gait difficulty [R26.9] 10/06/2019 Hypoglycemia [E16.2] 03/07/2021 Neurogenic bladder [N31.9] 07/14/2020 Obstructive sleep apnea [G47.33] 07/28/2017 Optic neuritis [H46.9] 08/21/2019 Ovarian cyst, complex [N83.299] 04/14/2018 Ovarian torsion [N83.519] 04/14/2018 Restless leg syndrome [G25.81] 07/28/2017 Somnolence, daytime [R40.0] 07/28/2017 04/20/2021 Syncope and collapse [R55] 12/04/2018 Cognitive communication deficit [R41.841] 07/22/2022 Encounter Status:Closed by ALONZO SULLIVAN on 03/31/23 Normal [facility] SMOOTH MARTINEZ ([id number]) 1985 F Date Time Provider Department 03/13/[address] [facility] During your visit today, we recorded the following information about you: Shayna Díaz MA 03/13/2023 11:46 AM Signed Results from Health visit, placed paper on your desk to review. VIRGEN Huynh MD 03/13/2023 7:53 PM Signed Noted. Allergies As of Date: 03/13/2023 Noted Allergy Reaction GLUTEN 11/15/2019 14 - Other: See Comments Comments: chest pain, rashes, constipation LECITHIN, SOY 08/14/2022 8 - GI Upset 16 - Unknown SOY 11/15/2019 5 - Intolerance Date Reviewed: 02/12/2023 Reviewed by: Tani Sorto - Fully Assessed Reason for Visit: Patient Update [1234] Prescriptions as of 03/13/2023 - ferrous sulfate 325 mg (65 mg iron) tablet Take 1 tablet by mouth once daily. - azithromycin (ZITHROMAX Z-CY) 250 mg tablet 2 tablets by mouth first day then 1 tablet the next 4 days - ergocalciferol 50,000 unit capsule (VITAMIN D2, DRISDOL) Take 1 capsule by mouth one time a week. - tiZANidine (ZANAFLEX) 2 mg tablet Take 1 tablet by mouth every 8 hours as needed. - dalfampridine ER (AMPYRA) 10 mg tablet Take 1 tablet by mouth twice daily. - ocrelizumab (OCREVUS) 30 mg/mL soln injection Ocrelizumab (Ocrevus) 30 mg/mL Solution Active 30 MG IV EVERY 6 MONTHS April 02, 2022 5:21pm pt. recieves infusion Q6M for MS - polyethylene glycol, bulk, 100 % powd as directed. - VITAMIN B COMPLEX ORAL Take by mouth. - calcium carbonate (CALCIUM 300 ORAL) Take by mouth once daily. - melatonin 3 mg tablet Take 1 tablet by mouth once daily as needed. - ketoconazole (NIZORAL) 2 % cream Apply to affected area once daily. Apply qd - fluticasone (FLONASE) 50 mcg/actuation nasal spray Use 1 [place] in each nostril once daily. - MAGNESIUM ORAL Take 1 tablet by mouth twice daily. - Ngkpenpm-Ou-Agi-Fe-F A ( VITAMIN) tab Take 1 tablet by mouth once daily. - Ascorbic Acid 100 mg chew Take 100 mg by mouth once daily. Problem List As Of Date 03/13/2023 Noted Resolved Multiple sclerosis (HCC) [G35] 11/15/2019 Chronic insomnia [F51.04] 01/04/2020 AMA (advanced maternal age) primigravida 35+, s*2020 01/11/2021 History of loop electrosurgical excision proced*2020 01/11/2021 Poor growth affecting management of mothe*12/25/2020 01/11/2021 Encounter for supervision of normal first pregn*01/02/2021 01/11/2021 Low maternal weight gain, third trimester [O26.*01/02/2021 01/11/2021 GBS (group B Streptococcus carrier), +RV cultur*01/02/2021 01/11/2021 Abnormal antibody titer [R76.0] 01/08/2021 Encounter for induction of labor [Z34.90] 01/08/2021 01/11/2021 NO SHOW 01/22/2021 04/17/2021 Bilateral hearing loss [H91.93] 07/14/2018 Cognitive complaints [R41.9] 03/03/2019 Constipation [K59.00] 10/06/2019 Costochondritis, acute [M94.0] 04/17/2021 04/20/2021 Edema of lower extremity [R60.0] 04/17/2021 04/20/2021 Gait difficulty [R26.9] 10/06/2019 Hypoglycemia [E16.2] 03/07/2021 Neurogenic bladder [N31.9] 07/14/2020 Obstructive sleep apnea [G47.33] 07/28/2017 Optic neuritis [H46.9] 08/21/2019 Ovarian cyst, complex [N83.299] 04/14/2018 Ovarian torsion [N83.519] 04/14/2018 Restless leg syndrome [G25.81] 07/28/2017 Somnolence, daytime [R40.0] 07/28/2017 04/20/2021 Syncope and collapse [R55] 12/04/2018 Cognitive communication deficit [R41.841] 07/22/2022 Encounter Status:Closed by JANICE LANE on 03/13/23 Normal [facility] CNOVon 02-18-2023 CNOV Office Visit ([facility]) SMOOTH MARTINEZ ([id number]) 1985 F Date Time Provider Department 02/18/23 1:00 PM NEGRA ALVARADO [facility] During your visit today, we recorded the following information about you: GERRY Bravo 02/18/2023 1:11 PM Signed No show/no call for Today's appointment. Phone call made to patient, , not able to take a call. $75 charge. No Show letter sent through My Chart. TORSTEN Bravo, [facility] [place]- Referring Provider: ROSE WILCOX [[id number]] Allergies As of Date: 02/18/2023 Noted Allergy Reaction GLUTEN 11/15/2019 14 - Other: See Comments Comments: chest pain, rashes, constipation LECITHIN, SOY 08/14/2022 8 - GI Upset 16 - Unknown SOY 11/15/2019 5 - Intolerance Date Reviewed: 02/12/2023 Reviewed by: Tani Sorto - Fully Assessed Primary Visit Diagnosis:No-show for appointment [Z91.199] Prescriptions as of 02/18/2023 - nirmatrelvir tablet 300 mg (150 mg x 2) and ritonavir tablet 100 mg in a dose pack (PAXLOVID) Administer TWO pink nirmatrelvir 150 mg tablets and ONE white ritonavir 100 mg tablet for a total of three tablets twice daily. - ferrous sulfate 325 mg (65 mg iron) tablet Take 1 tablet by mouth once daily. - azithromycin (ZITHROMAX Z-CY) 250 mg tablet 2 tablets by mouth first day then 1 tablet the next 4 days - ergocalciferol 50,000 unit capsule (VITAMIN D2, DRISDOL) Take 1 capsule by mouth one time a week. - tiZANidine (ZANAFLEX) 2 mg tablet Take 1 tablet by mouth every 8 hours as needed. - dalfampridine ER (AMPYRA) 10 mg tablet Take 1 tablet by mouth twice daily. - ocrelizumab (OCREVUS) 30 mg/mL soln injection Ocrelizumab (Ocrevus) 30 mg/mL Solution Active 30 MG IV EVERY 6 MONTHS April 02, 2022 5:21pm pt. recieves infusion Q6M for MS - polyethylene glycol, bulk, 100 % powd as directed. - VITAMIN B COMPLEX ORAL Take by mouth. - calcium carbonate (CALCIUM 300 ORAL) Take by mouth once daily. - melatonin 3 mg tablet Take 1 tablet by mouth once daily as needed. - ketoconazole (NIZORAL) 2 % cream Apply to affected area once daily. Apply qd - fluticasone (FLONASE) 50 mcg/actuation nasal spray Use 1 [place] in each nostril once daily. - MAGNESIUM ORAL Take 1 tablet by mouth twice daily. - Qigeymzf-Iw-Pfz-Fe-F A ( VITAMIN) tab Take 1 tablet by mouth once daily. - Ascorbic Acid 100 mg chew Take 100 mg by mouth once daily. Problem List As Of Date 02/18/2023 Noted Resolved Multiple sclerosis (HCC) [G35] 11/15/2019 Chronic insomnia [F51.04] 01/04/2020 AMA (advanced maternal age) primigravida 35+, s*2020 01/11/2021 History of loop electrosurgical excision proced*2020 01/11/2021 Poor growth affecting management of mothe*12/25/2020 01/11/2021 Encounter for supervision of normal first pregn*01/02/2021 01/11/2021 Low maternal weight gain, third trimester [O26.*01/02/2021 01/11/2021 GBS (group B Streptococcus carrier), +RV cultur*01/02/2021 01/11/2021 Abnormal antibody titer [R76.0] 01/08/2021 Encounter for induction of labor [Z34.90] 01/08/2021 01/11/2021 NO SHOW 01/22/2021 04/17/2021 Bilateral hearing loss [H91.93] 07/14/2018 Cognitive complaints [R41.9] 03/03/2019 Constipation [K59.00] 10/06/2019 Costochondritis, acute [M94.0] 04/17/2021 04/20/2021 Edema of lower extremity [R60.0] 04/17/2021 04/20/2021 Gait difficulty [R26.9] 10/06/2019 Hypoglycemia [E16.2] 03/07/2021 Neurogenic bladder [N31.9] 07/14/2020 Obstructive sleep apnea [G47.33] 07/28/2017 Optic neuritis [H46.9] 08/21/2019 Ovarian cyst, complex [N83.299] 04/14/2018 Ovarian torsion [N83.519] 04/14/2018 Restless leg syndrome [G25.81] 07/28/2017 Somnolence, daytime [R40.0] 07/28/2017 04/20/2021 Syncope and collapse [R55] 12/04/2018 Cognitive communication deficit [R41.841] 07/22/2022 Encounter Status:Closed by NEGRA ALVARADO on 02/18/23 Normal [facility] CBC W Auto Differential pane l (Bld)on 02-12-2023 Basophils (Bld) [#/Vol] 0.06 10*3/uL Normal <0.11 [facility] Comment on above: Order Comment: Speci men Type: BLOOD SPECIMENOrdering Facility: [facility] Address: [address] [place] [id number] Performed By: #### 5 7021-8 ####[facility] LABCLIA [id number] [place] [address] [place] Basophils/100 WBC (Bld) 0.9 % Normal [facility] Comment on above: Order Comment: Speci men Type: BLOOD SPECIMENOrdering Facility: [facility] Address: [address] [place] [address] Performed By: #### 5 7021-8 ####[facility] LABCLIA [id number] [place] [address] [place] Differential cell count method Nom (Bld) Auto Normal [facility] Comment on above: Order Comment: Speci men Type: BLOOD SPECIMENOrdering Facility: [facility] Address: [address] [place] [address] Performed By: #### 5 7021-8 ####[facility] LABIA [id number] [place] [address] [place] Eosinophils (Bld) [#/Vol] 0.24 10*3/uL Normal <0.46 [facility] Comment on above: Order Comment: Speci men Type: BLOOD SPECIMENOrdering Facility: [facility] Address: [address] [place] [address] Performed By: #### 5 7021-8 ####[facility] LABIA [id number] [address] STATES OF [facility] Eosinophils/100 WBC (Bld) 3.5 % Normal [facility] Comment on above: Order Comment: Speci men Type: BLOOD SPECIMENOrdering Facility: [facility] Address: [address] [place] [address] Performed By: #### 5 7021-8 ####[facility] LABIA [id number] [place] [address] [place] Erythrocyte distribution width (RBC) [Ratio] 16.5 % High 11.5-15.0 [facility] Comment on above: Order Comment: Speci men Type: BLOOD SPECIMENOrdering Facility: [facility] Address: [address] Performed By: #### 5 7021-8 ####[facility] LABCLIA [id number] [place] [address] [place] Hematocrit (Bld) [Volume fraction] 30.2 % Low 36.0-46.0 [facility] Comment on above: Order Comment: Speci men Type: BLOOD SPECIMENOrdering Facility: [facility] Address: [address] Performed By: #### 5 7021-8 ####[facility] LABCLIA [id number] [place] [address] [place] Hemoglobin (Bld) [Mass/Vol] 8.6 g/dL Low 11.5-15.5 [facility] Comment on above: Order Comment: Speci men Type: BLOOD SPECIMENOrdering Facility: [facility] Address: [address] [place], [place] [address] Performed By: #### 5 7021-8 ####[facility] LABCLIA [id number] [place] [address] [place] Immature granulocytes (Bld) [#/Vol] 10*3/uL Normal <0.10 [facility] Comment on above: Order Comment: Speci men Type: BLOOD SPECIMENOrdering Facility: [facility] Address: [address] [place], [place] [address] Performed By: #### 5 7021-8 ####[facility] LABCLIA [id number] [place] [address] [place] Immature granulocytes/100 WBC (Bld) 0.1 % Normal [facility] Comment on above: Order Comment: Speci men Type: BLOOD SPECIMENOrdering Facility: [facility] Address: [address] [place], [place] [address] Performed By: #### 5 7021-8 ####[facility] LABCLIA [id number] [place] [address] [place] Lymphocytes (Bld) [#/Vol] 1.84 10*3/uL Normal 1.00-4.00 [facility] Comment on above: Order Comment: Speci men Type: BLOOD SPECIMENOrdering Facility: [facility] Address: [address] [place] [address] Performed By: #### 5 7021-8 ####[facility] [id number] [place] [address] [place] Lymphocytes/100 WBC (Bld) 27.1 % Normal [facility] Comment on above: Order Comment: Speci men Type: BLOOD SPECIMENOrdering Facility: [facility] Address: [address] [place] [address] Performed By: #### 5 7021-8 ####[facility] [id number] [place] [address] [place] MCH (RBC) [Entitic mass] 20.4 pg Low 26.0-34.0 [facility] Comment on above: Order Comment: Speci men Type: BLOOD SPECIMENOrdering Facility: [facility] Address: [address] [place] [address] Performed By: #### 5 7021-8 ####[facility] [id number] [place] [address] [place] MCHC (RBC) [Mass/Vol] 28.5 g/dL Low 30.5-36.0 [facility] Comment on above: Order Comment: Speci men Type: BLOOD SPECIMENOrdering Facility: [facility] Address: [address] [place] [address] Performed By: #### 5 7021-8 ####[facility] LABIA [id number] [place] [address] [place] MCV (RBC) [Entitic vol] 71.6 fL Low 80.0-100.0 [facility] Comment on above: Order Comment: Speci men Type: BLOOD SPECIMENOrdering Facility: [facility] Address: [address] Performed By: #### 5 7021-8 ####[facility]CLIA [id number] [place] [address] [place] Monocytes (Bld) [#/Vol] 1.02 10*3/uL High <0.87 [facility] Comment on above: Order Comment: Speci men Type: BLOOD SPECIMENOrdering Facility: [facility] Address: [address] Performed By: #### 5 7021-8 ####[facility]CLIA [id number] [place] [address]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 30 mg/mL soln injection Ocrelizumab (Ocrevus) 30 mg/mL Solution Active 30 MG IV EVERY 6 MONTHS April 02, 2022 5:21pm pt. recieves infusion Q6M for MS - polyethylene glycol, bulk, 100 % powd as directed. - VITAMIN B COMPLEX ORAL Take by mouth. - dalfampridine ER (AMPYRA) 10 mg tablet Take 1 tablet by mouth every 12 hours. - tiZANidine (ZANAFLEX) 2 mg tablet Take 1 tablet by mouth every 8 hours as needed. - ergocalciferol 50,000 unit capsule (VITAMIN D2, DRISDOL) Take 1 capsule by mouth one time a week. - calcium carbonate (CALCIUM 300 ORAL) Take by mouth once daily. - melatonin 3 mg tablet Take 1 tablet by mouth once daily as needed. - ketoconazole (NIZORAL) 2 % cream Apply to affected area once daily. Apply qd - fluticasone (FLONASE) 50 mcg/actuation nasal spray Use 1 [place] in each nostril once daily. - MAGNESIUM ORAL Take 1 tablet by mouth twice daily. - Iqexbsqm-Tz-Ixp-Fe-F A ( VITAMIN) tab Take 1 tablet by mouth once daily. - potassium chloride ER (K-DUR, KLOR-CON) 20 mEq tablet Take 20 mEq by mouth as needed. - Ascorbic Acid 100 mg chew Take 100 mg by mouth once daily. Problem List As Of Date 11/05/2022 Noted Resolved Multiple sclerosis (HCC) [G35] 11/15/2019 Chronic insomnia [F51.04] 01/04/2020 AMA (advanced maternal age) primigravida 35+, s*2020 01/11/2021 History of loop electrosurgical excision proced*2020 01/11/2021 Poor growth affecting management of mothe*12/25/2020 01/11/2021 Encounter for supervision of normal first pregn*01/02/2021 01/11/2021 Low maternal weight gain, third trimester [O26.*01/02/2021 01/11/2021 GBS (group B Streptococcus carrier), +RV cultur*01/02/2021 01/11/2021 Abnormal antibody titer [R76.0] 01/08/2021 Encounter for induction of labor [Z34.90] 01/08/2021 01/11/2021 NO SHOW 01/22/2021 04/17/2021 Bilateral hearing loss [H91.93] 07/14/2018 Cognitive complaints [R41.9] 03/03/2019 Constipation [K59.00] 10/06/2019 Costochondritis, acute [M94.0] 04/17/2021 04/20/2021 Edema of lower extremity [R60.0] 04/17/2021 04/20/2021 Gait difficulty [R26.9] 10/06/2019 Hypoglycemia [E16.2] 03/07/2021 Neurogenic bladder [N31.9] 07/14/2020 Obstructive sleep apnea [G47.33] 07/28/2017 Optic neuritis [H46.9] 08/21/2019 Ovarian cyst, complex [N83.299] 04/14/2018 Ovarian torsion [N83.519] 04/14/2018 Restless leg syndrome [G25.81] 07/28/2017 Somnolence, daytime [R40.0] 07/28/2017 04/20/2021 Syncope and collapse [R55] 12/04/2018 Cognitive communication deficit [R41.841] 07/22/2022 Encounter Status:Closed by MYAH RUSHING on 11/07/22 [facility] PRISCILA MARTINEZANA Pérez ([id number]) 1985 F Date Time Provider Department 10/28/[address] [facility] During your visit today, we recorded the following information about you: Shayna Díaz MA 10/28/2022 3:25 PM Signed ER notes for patient. Placed on your desk to review. VIRGEN Huynh MD 10/28/2022 4:57 PM Signed Noted. Patient seen for COVID flare Allergies As of Date: 10/28/2022 Noted Allergy Reaction GLUTEN 11/15/2019 14 - Other: See Comments Comments: chest pain, rashes, constipation LECITHIN, SOY 08/14/2022 8 - GI Upset 16 - Unknown SOY 11/15/2019 5 - Intolerance Date Reviewed: 09/27/2022 Reviewed by: Stacey Clarke RN - Fully Assessed Reason for Visit: Patient Update [1234] Prescriptions as of 10/28/2022 - ocrelizumab (OCREVUS) 30 mg/mL soln injection Ocrelizumab (Ocrevus) 30 mg/mL Solution Active 30 MG IV EVERY 6 MONTHS April 02, 2022 5:21pm pt. recieves infusion Q6M for MS - polyethylene glycol, bulk, 100 % powd as directed. - VITAMIN B COMPLEX ORAL Take by mouth. - dalfampridine ER (AMPYRA) 10 mg tablet Take 1 tablet by mouth every 12 hours. - tiZANidine (ZANAFLEX) 2 mg tablet Take 1 tablet by mouth every 8 hours as needed. - ergocalciferol 50,000 unit capsule (VITAMIN D2, DRISDOL) Take 1 capsule by mouth one time a week. - calcium carbonate (CALCIUM 300 ORAL) Take by mouth once daily. - melatonin 3 mg tablet Take 1 tablet by mouth once daily as needed. - ketoconazole (NIZORAL) 2 % cream Apply to affected area once daily. Apply qd - fluticasone (FLONASE) 50 mcg/actuation nasal spray Use 1 [place] in each nostril once daily. - MAGNESIUM ORAL Take 1 tablet by mouth twice daily. - Trrgljkf-Xn-Egb-Fe-F A ( VITAMIN) tab Take 1 tablet by mouth once daily. - potassium chloride ER (K-DUR, KLOR-CON) 20 mEq tablet Take 20 mEq by mouth as needed. - Ascorbic Acid 100 mg chew Take 100 mg by mouth once daily. Problem List As Of Date 10/28/2022 Noted Resolved Multiple sclerosis (HCC) [G35] 11/15/2019 Chronic insomnia [F51.04] 01/04/2020 AMA (advanced maternal age) primigravida 35+, s*2020 01/11/2021 History of loop electrosurgical excision proced*2020 01/11/2021 Poor growth affecting management of mothe*12/25/2020 01/11/2021 Encounter for supervision of normal first pregn*01/02/2021 01/11/2021 Low maternal weight gain, third trimester [O26.*01/02/2021 01/11/2021 GBS (group B Streptococcus carrier), +RV cultur*01/02/2021 01/11/2021 Abnormal antibody titer [R76.0] 01/08/2021 Encounter for induction of labor [Z34.90] 01/08/2021 01/11/2021 NO SHOW 01/22/2021 04/17/2021 Bilateral hearing loss [H91.93] 07/14/2018 Cognitive complaints [R41.9] 03/03/2019 Constipation [K59.00] 10/06/2019 Costochondritis, acute [M94.0] 04/17/2021 04/20/2021 Edema of lower extremity [R60.0] 04/17/2021 04/20/2021 Gait difficulty [R26.9] 10/06/2019 Hypoglycemia [E16.2] 03/07/2021 Neurogenic bladder [N31.9] 07/14/2020 Obstructive sleep apnea [G47.33] 07/28/2017 Optic neuritis [H46.9] 08/21/2019 Ovarian cyst, complex [N83.299] 04/14/2018 Ovarian torsion [N83.519] 04/14/2018 Restless leg syndrome [G25.81] 07/28/2017 Somnolence, daytime [R40.0] 07/28/2017 04/20/2021 Syncope and collapse [R55] 12/04/2018 Cognitive communication deficit [R41.841] 07/22/2022 Encounter Status:Closed by [address] on 10/28/22 [facility] COVID-19 / Flu A/B / RSV PCR on 10-28-2022 SARS-CoV-2 (COVID-19) RNA DEIRDRE+probe Ql (Unsp spec) Results called at 2352 on 10/27/22 COVID-19 Cepheid Result Positive for SARS-CoV-2 RNA by RT-PCR Flu A Cepheid Result Negative for Flu A RNA by RT-PCR Flu B Cepheid Result Negative for Flu B RNA by RT-PCR RSV Cepheid Result Negative for RSV RNA by RT-PCR COVID19 Blank Space Reference: Negative COVID19 Blank Space Cepheid Disclaimer The [employer]ep[employer] Xpert Xpress CoV-2/Flu/RSV Plus has [place]smith[place] Disclaimer not been FDA cleared or approved; this test has Cepheid Disclaimer been authorized by FDA under an EUA for use by Cepheid Disclaimer authorized laboratories; this test has been Cepheid Disclaimer authorized only for the simultaneous qualitative Cepheid Disclaimer detection and differentiation of nucleic acids from Cepheid Disclaimer SARS-CoV-2, influenza A, influenza B, and Cepheid Disclaimer respiratory syncytial virus (RSV), and not for any Cepheid Disclaimer other viruses or pathogens; and this test is only Cepheid Disclaimer authorized for the duration of the declaration that Cepheid Disclaimer circumstances exist justifying the authorization of Cepheid Disclaimer emergency use of in vitro diagnostic tests for Cepheid Disclaimer detection and/or diagnosis of COVID-19 under Cepheid Disclaimer Section 564(b)(1) of the Act, 21 U.S.C. 360bbb- Cepheid Disclaimer 3(b)(1), unless the authorization is terminated or Cepheid Disclaimer revoked sooner. PERFORMED BY: [place] [address] PATHOLOGIST CREDIT CASHIER ALEN PRICE M.D. Normal [facility] Comment on above: Performed By: #### C OVID19 FLU RSV, CEPHEID POS #### [facility] [address] [place], [place] [id number] [facility] Cepheid COVID PCR Positiveon 10-28-2022 SARS-CoV-2 (COVID-19) RNA DEIRDRE+probe Ql (Unsp spec) Positive Critically abnormal Negative [facility] Comment on above: Result Comment: This is a duplicate Cepheid Xpert Xpress CoV-2/Flu/RSV Plus RNA by RT-PCR result to be used for statistical tracking purpose only. PERFORMED BY: [place] [address] PATHOLOGIST CREDIT CASHIER ALEN PRICE M.D. Performed By: #### C OVID19 FLU RSV, CEPHEID POS #### [facility] [address] [place], [place] [phone] [facility] Complete Blood Count Auto Di ffon 10-28-2022 Basophils (Bld) [#/Vol] 0.0 10*3/uL Normal 0.0-0.2 [facility] Comment on above: Result Comment: PERF ORMED BY: [place] [address] PATHOLOGIST CREDIT CASHIER ALEN PRICE M.D. Performed By: #### C BC, CMP #### [facility] [address] [place] [id number] [place] Basophils/100 WBC (Bld) 0.4 % Normal . F [facility] Comment on above: Performed By: #### C BC, CMP #### [facility] [address] [place] [address] [place] Eosinophils (Bld) [#/Vol] 0.0 10*3/uL Normal 0.0-0.45 [facility] Comment on above: Performed By: #### C BC, CMP #### [facility] [address] [place] [address] [place] Eosinophils/100 WBC (Bld) 0.0 % Normal . [facility] Comment on above: Performed By: #### C BC, CMP #### [facility] [address] Erythrocyte distribution width (RBC) [Ratio] 17.4 % High 11.9-15.3 [facility] Comment on above: Performed By: #### C BC, CMP #### [facility] [address] [place] [address] [place] Hematocrit (Bld) [Volume fraction] 38.7 % Normal 34.0-46.4 [facility] Comment on above: Performed By: #### C BC, CMP #### [facility] [address] [place] [address] [place] Hemoglobin (Bld) [Mass/Vol] 12.1 g/dL Normal 11.8-15.4 [facility] Comment on above: Performed By: #### C BC, CMP #### [facility] [address] [place] [id number] [place] Lymphocytes (Bld) [#/Vol] 0.5 10*3/uL Low 1.00-4.8 [facility] Comment on above: Performed By: #### C BC, CMP #### [facility] [address] [place] [id number] [place] Lymphocytes/100 WBC (Bld) 10.8 % Normal . [facility] Comment on above: Performed By: #### C BC, CMP #### [facility] [address] MCH (RBC) [Entitic mass] 23.7 pg Low 24.7-34.3 [facility] Comment on above: Performed By: #### C BC, CMP #### [address] MCV (RBC) [Entitic vol] 76.0 fL Low 80-100 F [facility] Comment on above: Performed By: #### C BC, CMP #### [address] Mean Corpuscular HGB Conc 31.2 g/dL Low 32.0-35.0 [facility] Comment on above: Performed By: #### C BC, CMP #### [address] Monocytes (Bld) [#/Vol] 0.8 10*3/uL Normal 0.0-0.8 [facility] Comment on above: Performed By: #### C BC, CMP #### [place] [address] [place] Monocytes/100 WBC (Bld) 24.86 % High 0.00-20.00 [facility] Comment on above: Result Comment: For adults in ED, MDW > 20.0 may be associated with a higher risk of sepsis during the first 12 hrs of hospital admission Performed By: #### C BC, CMP #### [address] Monocytes/100 WBC (Bld) 16.8 % Normal . F [facility] Comment on above: Performed By: #### C BC, CMP #### [place] [address] [place] Neutrophils (Bld) [#/Vol] 3.2 10*3/uL Normal 1.8-7.7 [facility] Comment on above: Performed By: #### C BC, CMP #### [place] [address] [place] Neutrophils/100 WBC (Bld) 72.0 % Normal . [facility] Comment on above: Performed By: #### C BC, CMP #### [address] NRBC% 0.1 /100{WBC} Normal 0-0.5 [facility] Comment on above: Performed By: #### C BC, CMP #### [address] Platelet mean volume (Bld) [Entitic vol] 11.0 fL High 6.3-10.7 [facility] Comment on above: Performed By: #### C BC, CMP #### [address] Platelets (Bld) [#/Vol] 148 10*3/uL Low 150-450 [facility] Comment on above: Performed By: #### C BC, CMP #### [address] RBC (Bld) [#/Vol] 5.10 10*6/uL High 3.60-5.00 [facility] Comment on above: Performed By: #### C BC, CMP #### [address] WBC (Bld) [#/Vol] 4.5 10*3/uL Normal 3.8-11.6 [facility] Comment on above: Performed By: #### C BC, CMP #### [address] Comprehensive Metabolic Pane kartik 10-28-2022 Albumin [Mass/Vol] 4.1 g/dL Normal 3.2-5.5 [facility] Comment on above: Performed By: #### C BC, CMP #### [address] Albumin/Globulin [Mass ratio] 1.2 {ratio} Normal [facility] Comment on above: Performed By: #### C BC, CMP #### [address] [address] [place] ALP [Catalytic activity/Vol] 43 U/L Normal 32-92 [facility] Comment on above: Performed By: #### C BC, CMP #### [address] ALT [Catalytic activity/Vol] 18 U/L Normal 10-60 [facility] Comment on above: Performed By: #### C BC, CMP #### [facility] [address] [place] [address] Anion gap [Moles/Vol] 13.5 mmol/L Normal 6.0-15.0 [facility] Comment on above: Performed By: #### C BC, CMP #### [address] AST [Catalytic activity/Vol] 24 U/L Normal 10-42 [facility] Comment on above: Performed By: #### C BC, CMP #### [facility] [address] [place] [address] Bilirubin [Mass/Vol] 0.8 mg/dL Normal 0.3-1.2 [facility] Comment on above: Performed By: #### C BC, CMP #### [address] Calcium [Mass/Vol] 9.2 mg/dL Normal 8.2-10.2 [facility] Comment on above: Performed By: #### C BC, CMP #### [facility] [address] [place] [address] Chloride [Moles/Vol] 101 mmol/L Normal 95-114 [facility] Comment on above: Performed By: #### C BC, CMP #### [facility] [address] [place] [address] CO2 [Moles/Vol] 23.2 mmol/L Normal 22.0-30.0 [facility] Comment on above: Performed By: #### C BC, CMP #### [facility] [address] [place] [address] Creatinine [Mass/Vol] 0.96 mg/dL Normal 0.44-1.03 [facility] Comment on above: Performed By: #### C BC, CMP #### [place] [address] [place] Creatinine Clr Calc Pharmacy 75.11 [facility] Comment on above: Result Comment: PERF ORMED BY: [place] [address] PATHOLOGIST CREDIT CASHIER ALEN PRICE M.D. Performed By: #### C BC, CMP #### [address] Estimated GFR ( Adis > 60 [facility] Comment on above: Result Comment: GFR estimated reference range: According to KDOQI guidelines, <60 ml/min/1.73m2 is sufficient to diagnose a patient with chronic kidney disease. Performed By: #### C BC, CMP #### [address] Estimated GFR (Non- Am > 60 [facility] Comment on above: Performed By: #### C BC, CMP #### [address] Globulin (S) [Mass/Vol] 3.5 g/dL Normal [facility] Comment on above: Performed By: #### C BC, CMP #### [address] Glucose [Mass/Vol] 102 mg/dL High 70-100 [facility] Comment on above: Result Comment: [place] Glucose Reference Range is dependent on time and content of last meal. Glucose of more than 200 mg/dL in a nonstressed, ambulatory subject supports the diagnosis of Diabetes Mellitus. ADA recommended reference range Performed By: #### C BC, CMP #### [address] Potassium [Moles/Vol] 3.7 mmol/L Normal 3.5-5.1 [facility] Comment on above: Performed By: #### C BC, CMP #### [place] [address] [place] Protein [Mass/Vol] 7.6 g/dL Normal 6.1-7.9 [facility] Comment on above: Performed By: #### C BC, CMP #### [facility] [address] Sodium [Moles/Vol] 134 mmol/L Low 136-146 [facility] Comment on above: Performed By: #### C BC, CMP #### [facility] [address] [place] [phone] [facility] Urea nitrogen [Mass/Vol] 10 mg/dL Normal 9-23 [facility] Comment on above: Performed By: #### C BC, CMP #### [facility] [address] [place], [place] [phone] [facility] XR chest 1V portableon 10-28 XR chest 1V portable [facility] Main [place] [address] [place] [address] XRay Report Signed Patient: Smooth Martinez MR#: [id number] : 1985 Acct:[id number] Age/Sex: 37 / F ADM Date: 10/27/22 Loc: ER Room: Type: [facility] ER Attending Dr: Copies to: Vishal Agarwal DO Ordering Provider: Vishal Agarwal DO Date of Service: 10/27/22 XR/XR chest 1V portable: Extremity Problem, Nontraumatic XR chest 1V portable 10/27/2022 10:31 PM SIGNS AND SYMPTOMS: Fever, generalized pain and weakness, difficulty walking PROTOCOL: Frontal radiograph of the chest COMPARISON: None FINDINGS: The trachea is midline. The heart and mediastinal structures are within normal limits. The lung parenchyma is clear. The bony thorax is intact. XR/XR chest 1V portable IMPRESSION: No acute cardiopulmonary pathology. Impression dictated by: Leonel Chin M.D.10/28/2022 10:00 AM Dictation Location: [place] [address] Transcribed By: [facility] 10/28/22 1000 Dictated By: Leonel Chin II, MD 10/28/22 0959 Signed By: 10/28/22 1000 Normal [facility] Albumin [Mass/volume] in Ser um or PlasmaOrdered By: Vishal Agarwal on 10-27-2022 Albumin [Mass/Vol] 4.1 g/dL 3.2-5.5 [facility] Basophils Auto (Bld) [#/Vol] Ordered By: Vishal Agarwal on 10-27-2022 Basophils (Bld) [#/Vol] 0.0 10*3/uL 0.0-0.2 [facility] Basophils/100 WBC Auto (Bld) Ordered By: Vishal Agarwal on 10-27-2022 Basophils/100 WBC (Bld) 0.4 % . F [facility] COVID CepheidOrdered By: Brook Agarwal on 10-27-2022 SARS-CoV-2 (COVID-19) Ab IA Ql Positive Negative [facility] Comment on above: This is a duplicate [employer] Xpert Xpress CoV-2/Flu/RSV Plus RNA by RT-PCR result to be used for statistical tracking purpose only. SARS-CoV-2 (COVID-19) RNA DEIRDRE+probe Ql (Unsp spec) [facility] Creatinine and Glomerular fi ltration rate.predicted panel (S/P/Bld)Ordered By: Vishal Agarwal on 10-27-2022 Creatinine [Mass/Vol] 0.96 mg/dL 0.44-1.03 [facility] Eosinophils Auto (Bld) [#/Vo l]Ordered By: Vishal Agarwal on 10-27-2022 Eosinophils (Bld) [#/Vol] 0.0 10*3/uL 0.0-0.45 [facility] Eosinophils/100 WBC Auto (Bl d)Ordered By: Vishal Agarwal on 10-27-2022 Eosinophils/100 WBC (Bld) 0.0 % . [facility] Erythrocyte distribution wid th Auto (RBC) [Ratio]Ordered By: Vishal Agarwal on 10-27-2022 Erythrocyte distribution width (RBC) [Ratio] 17.4 % 11.9-15.3 [facility] Estimated glomerular filtrat ion rate (GFR) non- AmericanOrdered By: Vishal Agarwal on 10-27-2022 GFR/1.73 sq M.predicted among non-blacks MDRD (S/P/Bld) [Vol rate/Area] > 60 mL/Min [facility] Globulin Calc (S) [Mass/Vol] Ordered By: Vishal Agarwal on 10-27-2022 Globulin (S) [Mass/Vol] 3.5 g/dL F [facility] Hematocrit Auto (Bld) [Volum e fraction]Ordered By: Vishal Agarwal on 10-27-2022 Hematocrit (Bld) [Volume fraction] 38.7 % 34.0-46.4 [facility] Hemoglobin [Mass/volume] in BloodOrdered By: Vishal Agarwal on 10-27-2022 Hemoglobin (Bld) [Mass/Vol] 12.1 g/dL 11.8-15.4 [facility] Leukocytes [#/volume] correc che for nucleated erythrocytes in Blood by Automated counOrdered By: Vishal Agarwal on 10-27-2022 WBC corrected for nucl RBC Auto (Bld) [#/Vol] 4.5 10*3/uL 3.8-11.6 [facility] Lymphocytes Auto (Bld) [#/Vo l]Ordered By: Vishal Agarwal on 10-27-2022 Lymphocytes (Bld) [#/Vol] 0.5 10*3/uL 1.00-4.8 [facility] Lymphocytes/100 WBC Auto (Bl d)Ordered By: Vishal Agarwal on 10-27-2022 Lymphocytes/100 WBC (Bld) 10.8 % . [facility] MCH Auto (RBC) [Entitic mass ]Ordered By: Vishal Agarwal on 10-27-2022 MCH (RBC) [Entitic mass] 23.7 pg 24.7-34.3 [facility] MCHC Auto (RBC) [Mass/Vol]Or dered By: Vishal Agarwal on 10-27-2022 MCHC (RBC) [Mass/Vol] 31.2 g/dL 32.0-35.0 [facility] MCV Auto (RBC) [Entitic vol] Ordered By: Vishal Agarwal on 10-27-2022 MCV (RBC) [Entitic vol] 76.0 fL 80-100 F [facility] Monocyte distribution width [Entitic volume] in Blood by AutomatedOrdered By: Vishal Agarwal on 10-27-2022 Monocyte distribution width Auto (Bld) [Entitic vol] 24.86 % 0.00-20.00 [facility] Comment on above: For adults in ED, MD W > 20.0 may be associated with a higher risk of sepsis during the first 12 hrs of hospital admission Monocytes Auto (Bld) [#/Vol] Ordered By: Vishal Agarwal on 10-27-2022 Monocytes (Bld) [#/Vol] 0.8 10*3/uL 0.0-0.8 [facility] Monocytes/100 WBC Auto (Bld) Ordered By: Vishal Agarwal on 10-27-2022 Monocytes/100 WBC (Bld) 16.8 % . F [facility] Neutrophils Auto (Bld) [#/Vo l]Ordered By: Vishal Agarwal on 10-27-2022 Neutrophils (Bld) [#/Vol] 3.2 10*3/uL 1.8-7.7 [facility] Neutrophils/100 WBC Auto (Bl d)Ordered By: Vishal Agarwal on 10-27-2022 Neutrophils/100 WBC (Bld) 72.0 % . [facility] No Panel InformationOrdered By: Vishal Agarwal on 10-27-2022 Estimated GFR () > 60 mL/Min [facility] Comment on above: GFR estimated refere nce range: According to KDOQI guidelines, <60 ml/min/1.73m2 is sufficient to diagnose a patient with chronic kidney disease. Pharmacy Creatinine Clearance (Chem 75.11 [facility] Nucleated erythrocytes [Pres ence] in Blood by Automated countOrdered By: Vishal Agarwal on 10-27-2022 Nucleated RBC Auto Ql (Bld) 0.1 /100{WBC} 0-0.5 [facility] Platelet mean volume Auto (B ld) [Entitic vol]Ordered By: Vishal Agarwal on 10-27-2022 Platelet mean volume (Bld) [Entitic vol] 11.0 fL 6.3-10.7 [facility] Platelets Auto (Bld) [#/Vol] Ordered By: Vishal Agarwal on 10-27-2022 Platelets (Bld) [#/Vol] 148 10*3/uL 150-450 [facility] Protein [Mass/volume] in Ser um or PlasmaOrdered By: Vishal Agarwal on 10-27-2022 Protein [Mass/Vol] 7.6 g/dL 6.1-7.9 [facility] RBC Auto (Bld) [#/Vol]Ordere d By: Vishal Agarwal on 10-27-2022 RBC (Bld) [#/Vol] 5.10 10*6/uL 3.60-5.00 [facility] Serum or plasma alanine gannon otransferase measurement without P-5'-P (enzymatic activiOrdered By: Vishal Agarwal on 10-27-2022 ALT No additional P-5'-P [Catalytic activity/Vol] 18 U/L 10-60 [facility] Serum or plasma albumin/glob ulin mass ratioOrdered By: Vishal Agarwal on 10-27-2022 Albumin/Globulin [Mass ratio] 1.2 {ratio} [facility] Serum or plasma alkaline bull sphatase measurement (enzymatic activity/volume)Ordered By: Vishal Agarwal on 10-27-2022 ALP [Catalytic activity/Vol] 43 U/L 32-92 [facility] Serum or plasma anion gap de terminationOrdered By: Vishal Agarwal on 10-27-2022 Anion gap [Moles/Vol] 13.5 mmol/L 6.0-15.0 [facility] Serum or plasma aspartate am inotransferase measurement (enzymatic activity/volume)Ordered By: Vishal Agarwal on 10-27-2022 AST [Catalytic activity/Vol] 24 U/L 10-42 [facility] Serum or plasma calcium scotty urement (mass/volume)Ordered By: Vishal Agarwal on 10-27-2022 Calcium [Mass/Vol] 9.2 mg/dL 8.2-10.2 [facility] Serum or plasma chloride suzie surement (moles/volume)Ordered By: Vishal Agarwal on 10-27-2022 Chloride [Moles/Vol] 101 mmol/L 95-114 [facility] Serum or plasma glucose scotty urement (mass/volume)Ordered By: Vishal Agarwal on 10-27-2022 Glucose [Mass/Vol] 102 mg/dL 70-100 [facility] Comment on above: ADA recommended refe rence rangeRandom Glucose Reference Range is dependent on time and content of last meal. Glucose of more than 200 mg/dL in a nonstressed, ambulatory subject supports the diagnosis of Diabetes Mellitus. Serum or plasma potassium me asurement (moles/volume)Ordered By: Vishal Agarwal on 10-27-2022 Potassium [Moles/Vol] 3.7 mmol/L 3.5-5.1 [facility] Serum or plasma sodium measu rement (moles/volume)Ordered By: Vishal Agarwal on 10-27-2022 Sodium [Moles/Vol] 134 mmol/L 136-146 [facility] Serum or plasma total biliru bin measurement (mass/volume)Ordered By: Vishal Agarwal on 10-27-2022 Bilirubin [Mass/Vol] 0.8 mg/dL 0.3-1.2 [facility] Serum or plasma total carbon dioxide measurement (moles/volume)Ordered By: Vishal Agarwal on 10-27-2022 CO2 [Moles/Vol] 23.2 mmol/L 22.0-30.0 [facility] Serum or plasma urea nitroge n measurement (mass/volume)Ordered By: Vishal Agarwal on 10-27-2022 Urea nitrogen [Mass/Vol] 10 mg/dL 9-23 [facility] WBC Auto (Bld) [#/Vol]Ordere d By: Vishal Agarwal on 10-27-2022 WBC (Bld) [#/Vol] 4.5 10*3/uL 3.8-11.6 [facility] HBV surface Ab IA Ql (S)on 11-27-2021 HBV surface Ag Ql (S) Negative Negative [facility] HEP B CORE AB TOTALon 2021 HBV core Ab Ql (S) Negative Negative [facility] HEP B SURF AB QUALon 022 HBV surface Ab Ql (S) Positive Abnormal Negative [facility] HEP C AB IA W/CONF SCRNon HCV Ab Ql (S) Negative Negative [facility] CBC W Auto Differential pane l (Bld)on 04-25-2022 Abs Immature Gran <0.03 <0.10 k/uL [facility] Basophils (Bld) [#/Vol] 0.03 10*3/uL <0.11 k/uL [facility] Basophils/100 WBC (Bld) 0.6 % C [facility] Differential cell count method Nom (Bld) Auto [facility] Eosinophils (Bld) [#/Vol] 0.10 10*3/uL <0.46 k/uL [facility] Eosinophils/100 WBC (Bld) 2.0 % [facility] Erythrocyte distribution width (RBC) [Ratio] 13.9 % 11.5 - 15.0 % [facility] Hematocrit (Bld) [Volume fraction] 38.5 % 36.0 - 46.0 % [facility] Hemoglobin (Bld) [Mass/Vol] 12.0 g/dL 11.5 - 15.5 g/dL [facility] Immature Gran % 0.2 % [facility] Lymphocytes (Bld) [#/Vol] 1.54 10*3/uL 1.00 - 4.00 k/uL [facility] Lymphocytes/100 WBC (Bld) 30.2 % [facility] MCH (RBC) [Entitic mass] 25.4 pg Low 26.0 - 34.0 pg [facility] MCHC (RBC) [Mass/Vol] 31.2 g/dL 30.5 - 36.0 g/dL [facility] MCV (RBC) [Entitic vol] 81.4 fL 80.0 - 100.0 fL [facility] Monocytes (Bld) [#/Vol] 0.66 10*3/uL <0.87 k/uL [facility] Monocytes/100 WBC (Bld) 12.9 % C [facility] Neutrophils (Bld) [#/Vol] 2.76 10*3/uL 1.45 - 7.50 k/uL [facility] Neutrophils/100 WBC (Bld) 54.1 % [facility] Nucleated RBC (Bld) [#/Vol] 10*3/uL <0.01 k/uL [facility] Nucleated RBC/100 WBC (Bld) [Ratio] 0.0 /100 WBC [facility] Platelet mean volume (Bld) [Entitic vol] 13.5 fL High 9.0 - 12.7 fL [facility] Platelets (Bld) [#/Vol] 168 10*3/uL 150 - 400 k/uL [facility] RBC (Bld) [#/Vol] 4.73 10*6/uL 3.90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 [facility] Start: 12-16-2022 History SDOH Alcohol Frequency 1 [facility] Start: 12-16-2022 History SDOH Alcohol Std Drinks 0 [facility] Start: 12-16-2022 History SDOH Social Connections Phone 4 [facility] Start: 12-16-2022 History SDOH Social Connections Membership 2 [facility] Start: 12-16-2022 History SDOH Social Connections Living 7 [facility] Start: 12-16-2022 History SDOH Physica l Activity MPS 3 [facility] Start: 12-16-2022 History SDOH Stress 5 [facility] Start: 12-16-2022 End: 07-17-2023 History of Social function [facility] Start: 12-16-2022 End: 07-17-2023 Social connection and isolation panel [facility] Do you belong to any clubs or organizations such as congregation groups, unions, fraternal or athletic groups, or school groups? No [facility] Are you now , , , , never or living with a partner? Never [facility] How often to you hav e a drink containing alcohol? Never [facility] How many standard drinks containing alcohol do you have on a typical day? Patient does not drink [facility] How hard is it for y ou to pay for the very basics like food, housing, medical care, and heating Somewhat hard [facility] Do you feel stress - tense, restless, nervous, or anxious, or unable to sleep at night because your mind is troubled all the time - these days [OSQ] Very much [facility] (I/We) worried wheth er (my/our) food would run out before (I/we) got money to buy more. Often true [facility] Start: 12-23-2020 Gender identity Identifies as female gender (finding) [facility] Start: 12-23-2020 Sexual orientation Heterosexual (brandin whalen) [facility] History of tobacco use Passive smoker [facility] NEGATED: Highlighted row - - [facility] [address] [address] Work Phone: Goals Date Patient Goal Desired Activity /State Functional Status Date Assessment Result Facility NEGATED: Highlighted row Functional performance Functional status health issues are not documented Disease XS-Vrcrvvtlte-Njxdc [address] Work Phone: Mental Status Date Assessment Result Facility NEGATED: Highlighted row Cognitive function [Interpretation] Cognitive status health issues are not documented Disease QI-Awvzxzuowh-Exyop [facility] Work Phone: Clinical Notes 04-17-2021 to 10-13-2023 Alexandra Hogan LSW - 10/13/2023 10:51 AM ESTTelephone Encounter - Katheryn Espino RN - 09/25/2023 10:36 AM Nayla Lawson MD - 08/26/2023 1:19 PM EDTPatient InstructionsPatient Instructions Note Date & Type Note Facility 10-13-2023 Note HNO ID: [id number] Author: Alexandra Hogan LSW Service: ? Author Type: Cloth Baler Type: Progress Notes Filed: 10/13/2023 10:52 AM Note Text: Patient appears on the First Time Treatment List for a non-oncology treatment. No psychosocial assessment is indicated. TORSTEN Ambrocio [facility] 10-13-2023 History of Present illness Narrative Patient appears on the First Time Treatment List for a non-oncology treatment. No psychosocial assessment is indicated. TORSTEN Ambrocio documented in this encounter [facility] 09-25-2023 Miscellaneous Notes Smooth is in our [place] clinic for her Ocrevus today. I just wanted to point out her ANC has dropped to 0.72 from today's cbc and this doesn't look normal for her. Patient feels fine with no complaints and no fever. Thank you, Katheryn Espino RN documented in this encounter [facility] 08-26-2023 Note HNO ID: [id number] Author: Nayla Louis MD Service: ? Author Type: Physician Type: Progress Notes Filed: 08/26/2023 1:19 PM Note Text: Transvaginal and abdominal pelvic ultrasound performed. Results under imaging tab. Nayla Louis MD [facility] 08-26-2023 History of Present illness Narrative Transvaginal and abdominal pelvic ultrasound performed. Results under imaging tab. Nayla Louis MD documented in this encounter [facility] 08-19-2023 Note HNO ID: [id number] Author: Germania Wilkinson MD Service: ? Author Type: Physician Type: Progress Notes Filed: 08/19/2023 4:26 PM Note Text: [facility] New Patient Evaluation PATIENT NAME: Smooth Martinez DATE OF SERVICE: August 19, 2023 CONSULTING PROVIDER: Jose Raul Santana MD REASON FOR CONSULT: Jose Raul Santana MDsends the patient for an opinion about insomnia, RLS. My findings and recommendations will be transmitted electronically via shared medical record to the consulting provider. HPI: Smooth Martinez is a 38 year old female here for evaluation of insomnia, RLS Sleep-related history: Diagnosed with MS in 2006- on infusions. She has history of chronic insomnia- since childhood. Had trouble sleeping in high school- never a good sleeper. Used to take care of her younger siblings at age 9. When tired, did not have opportunity of fall sleep as she was taking care of her younger siblings. Day time fatigue+ Does not take a nap. SLEEP-WAKE SCHEDULE Bedtime: 11 PM- 2 AM She has a hard time falling asleep. Time to fall asleep: 1 hour- 3 hours Wake time: 9 AM, without an alarm. If she wakes up in middle of night, has trouble going back to sleep. After falling asleep: she wakes up 1 time(s) per night, because of the need to urinate. On weekends, she maintains the same sleep schedule. SLEEP-RELATED DETAILS Preferred sleep position: back Breathing disturbances and other behaviors during sleep: mild snoring only when very tired Bruxism: Yes GERD or aspiration: No Waking up with heart pounding or racing: No Anxiety or rumination: No She reports having an urge to move the legs. The urge to move the legs only occurs in the evening or nighttime. The urge to move the legs begins or worsens during periods of rest or inactivity (e.g. lying or sitting). The urge to move the legs is partially or totally relieved by movements such as walking or stretching, at least as long as the activity continues. The urge to move the legs occurs 3-4 nights per week and began 4 years ago. There is history of iron deficiency or anemia. She has not been told that she has leg kicking during sleep. She denies any history of parasomnias. Excessive daytime sleepiness / fatigue is a problem. Excessive Daytime sleepiness/fatigue has been a problem for >30 years. There is no history of a viral illness or significant head injury prior to the start of daytime sleepiness. She does not report sleep paralysis or sleep-related hallucinations or cataplexy . WAKE-RELATED DETAILS She does not work. She does have difficulty with memory or concentration. She denies falling asleep or dozing off when driving. She does take naps. Frequency: few days a week, Duration: 10 min to 1 hour. Naps are refreshing. She does not drink caffeinated beverages. She has lost 20 pounds since 2 years- lost weight during her 2 years ago. Patient Questionnaires Sleep Scores Sleep Questions 08/11/2023 Reason for visit: Difficulty falling or staying asleep or poor sleep quality Average hours slept in 24 hours: 7 Accidents or near accidents due to drowsy drivin [place] Sleepiness Scale 01/03/2020 08/11/2023 Score 0 0 (No daytime sleepiness) PROMIS CAT Sleep Disturbance 11/15/2019 12/31/2019 08/11/2023 PROMIS Sleep Disturbance T-Score 71 (severe) 72 (severe) 72 (severe) PROMIS Sleep Disturbance Percentile - 1 % 1 % Insomnia Severity Index 01/03/2020 08/11/2023 Score 23 27 Restless Leg Syndrome 01/03/2020 08/11/2023 Score Incomplete 29 PHQ-9 02/11/2023 04/02/2023 08/11/2023 Score 10 12 12 PROMIS Global Health - (T-Scores - the mean of general population = 50. Five points is a clinically meaningful difference.) 11/07/2022 01/30/2023 07/11/2023 Physical T-Score 34.9 32.4 29.6 Mental T-Score 41.1 38.8 36.3 PAST TREATMENTS: Trazodone 50 mg - started last month Melatonin 3 mg - mild improvement Tried OTC meds in past- unisom worked the best PRIOR SLEEP STUDIES: Had 2 sleep studies - one at [place] [facility] [place] OTHER RELEVANT LABS AND STUDIES: PAST MEDICAL HISTORY Diagnosis Date Abnormal Pap smear of cervix 2007 Anemia Costochondritis, acute 04/17/2021 Edema of lower extremity 04/17/2021 Multiple sclerosis (HCC) Seizure (HCC) POSSIBLE HISTORY OF Thyroid disease POSSIBLE HYPO IN THE PAST PAST SURGICAL HISTORY Procedure Laterality Date OFFICE LEEP 2007 ACTIVE PROBLEM LIST Multiple Sclerosis (Hcc) Chronic Insomnia Abnormal Antibody Titer Bilateral Hearing Loss Neurogenic Bladder Optic Neuritis Ovarian Cyst, Complex Ovarian Torsion Restless Leg Syndrome Allergies As of Date: 08/19/2023 Allergen Noted Reaction GLUTEN 03/19/2019 Other: See Comments, Hives, and Itching LECITHIN, SOY 08/14/2022 GI Upset and Unknown SOY 11/15/2019 Intolerance LECITHIN 03/19/2019 Other: See Comments, Unknown, Itching, and GI Upset Fully A (more content not included)... [facility] 07-31-2023 Miscellaneous Notes Unable to order home PT (pelvic floor) as patient is not using [facility]. At last visit patient had stated she was using company: [employer] [facility] for home pt/ot PFT order re-ordered with comment for home therapy to aid in assistance but otherwise cannot order. [facility] is also to send us a prescription that I sign if able. Sleep medicine order replaced High dose vitamin D reordered to assist with compliance Tor Hernandez APRN.CNP July 31, 2023 1:57 PM documented in this encounter [facility] 07-31-2023 Miscellaneous Notes Patient also sent a message to her family medicine provider regarding this They placed the order for the podiatry consult and recommended Dr Wilkes in [place] documented in this encounter [facility] 07-23-2023 Note HNO ID: [id number] Author: Tor Hernandez APRN.CNP Service: ? Author Type: Nurse Practitioner Type: Progress Notes Filed: 07/23/2023 5:00 PM Note Text: [facility] FOLLOWUP/ESTABLISHED PATIENT VISIT PRINCIPAL NEUROLOGIC DIAGNOSIS: Multiple Sclerosis DISEASE SUMMARY Date of onset: 03/2007 Date of diagnosis of MS: 03/2007 Disease course at onset: Relapsing-Remitting Current disease course: Progressive without relapses Previous disease therapies: - Betaseron [id number] - Copaxone 2271-6796 - Tysabri 2009-Summer 2019 (stopped due to planned ) - Copaxone (during ) Current disease therapy: Ocrevus since 02/28/21, most recent 04/21/23 Most recent MRI brain: 01/02/23 (stable) Most recent MRI cervical spine: 01/02/23 (stable) Most recent MRI thoracic spine: 07/23/2022 CSF: NA JCV: 02/14/2021 0.28, stratify negative Brief Disease History: - 2006 lower extremity numbness evolving over 3 weeks following occipital relase - 4148-1813 recurrent OS ON - 0862-2013 several relapses including L numbness, weakness, constipation, urinary urgency - 2019 R weakness and numbness needing a wheelchair, hospitalized at [facility] (off Tysabri x3 months due to planning ). Also had OD vision loss at this time. At this time also notes substantial mold exposure due to it being all over her apt (has since moved). CHIEF COMPLAINT: Follow-up on MS disease modifying therapy Usual treating team: Esther/David The patient is accompanied by her youngest daughter. The patient was last seen 01/30/23, currently taking Ocrevus. Since the patient's last visit the patient reports overall feeling worse. Issues with current therapy: Tolerating medication without side effects. 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 too Cognitive symptoms continue to be the worst Poor short term memory, difficulty word finding, getting lost in conversation, misplacing objects Uses a lot of notes, keeps things in the same spot Writing can be difficult - spasticity, numbness - difficulty gripping utensils Last saw OT maybe Fall 2021 Home PT/OT (via [facility]) is starting next week, 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 cane Leans on stroller when out of the house Denies falls Has not resumed Ampyra since moving back Finds that legs are swelling by the end of the day Feels her hormones are out of balance Feels everything is out of whack Is not necessarily a mood change, denies depression Feels she has a short fuse - baby's father can be stressful Has urinary urgency, does not have the strength to hold once the urgency hits Denies incontinence Denies concern for UTI Denies new neurological symptoms Is switching insurances in August Neuro-QoL Functions (higher=better functioning) Flowsheet Row Office Visit from 07/23/2023 in [facility] Office Visit from 01/17/2023 in [facility] Appointment from 01/15/2023 in [facility] Upper Extremity Domain T Score 28.29 31.35 30 Lower Extremity Domain T Score 36.94 36.94 39 Cognitive Function Domain T Score 30.7 28.53 38 Positive Affect Well Being T Score -- -- -- Ability To Participate In Social Roles T Score 39.9 39.9 43 Satisfaction With Social Roles T Score 39.66 39.66 45 Neuro-QoL Symptoms (higher=worse symptoms) Flowsheet Row Office Visit from 07/23/2023 in [facility] Office Visit from 01/17/2023 in [facility] Appointment from 01/15/2023 in [facility] Sleep Domain T Score 69.2 68.89 61 Fatigue Domain T Score 64.84 63.38 61 Anxiety Domain T Score 44.34 51.52 52 Depression Domain T Score 43.71 41.37 49 Stigma Domain T Score 51.47 57.1 59 Emotional Behavior Dyscontrol T Score -- -- -- has a past medical history of Abnormal Pap smear of cervix (2007), Anemia, Costochondritis, acute (04/17/2021), Edema of lower extremity (04/17/2021), Multiple sclerosis ([facility]), Seizure ([facility]), and Thyroid disease. She has no past medical history of Asthma, Blood dyscrasia, Breast disorder, Chlamydia, Chronic kidney disease, Complication of anesthesia, Coronary artery disease, Diabetes ([facility]), Diabetes, gestational, Gonorrhea, Herpes simplex virus (HSV) infection, History of pre-eclampsia in prior , currently , HIV infection ([facility]), Hypertension, Infertility, female, Liver disease, Malignant hyperthermia due to anesthesia, Mental disorder, Placental abruption, depression, hemorrhage, Rh incompatibility, Sickle cell anemia ([facility]), Syp (more content not included)... [facility] 07-23-2023 Instructions Tor Hernandez APRN.[facility] - 07/23/2023 11:45 AM EDT We had that your most recent Ocrevus infusion was 04/21/23 You are scheduled again 10/08/23 Schedule brain MRI for December 2023 Lets plan for a follow up after your MRI Begin taking magnesium daily (at bedtime) This can help with the shaniqua horses and muscle tightness Repeat labs in August for your primary care doctor (low iron) Follow up with gynecology - regarding low iron and then also your hormones Reschedule with trauma counselor Schedule with health psychology Can consider trying medication Cymbalta for mood/numbness/tingling/burning symptoms When physical therapy comes to your house, talk about getting pelvic floor therapy I have printed this order for you to give them I have ordered speech therapy to help with your memory Check with your SSA counselor to see if another company can come to your house, if not, schedule with the [facility] documented in this encounter [facility] 07-23-2023 History of Present illness Narrative Images from the original note were not included. [facility] FOLLOWUP/ESTABLISHED PATIENT VISIT PRINCIPAL NEUROLOGIC DIAGNOSIS: Multiple Sclerosis DISEASE SUMMARY Date of onset: 03/2007 Date of diagnosis of MS: 03/2007 Disease course at onset: Relapsing-Remitting Current disease course: Progressive without relapses Previous disease therapies: - Betaseron [id number] - Copaxone 0081-0403 - Tysabri 2009-Summer 2019 (stopped due to planned ) - Copaxone (during ) Current disease therapy: Ocrevus since 02/28/21, most recent 04/21/23 Most recent MRI brain: 01/02/23 (stable) Most recent MRI cervical spine: 01/02/23 (stable) Most recent MRI thoracic spine: 07/23/2022 CSF: NA JCV: 02/14/2021 0.28, stratify negative Brief Disease History: - 2006 lower extremity numbness evolving over 3 weeks following occipital relase - 0767-7226 recurrent OS ON - 4920-8336 several relapses including L numbness, weakness, constipation, urinary urgency - 2019 R weakness and numbness needing a wheelchair, hospitalized at [facility] (off Tysabri x3 months due to planning ). Also had OD vision loss at this time. At this time also notes substantial mold exposure due to it being all over her apt (has since moved). CHIEF COMPLAINT: Follow-up on MS disease modifying therapy Usual treating team: Christina The patient is accompanied by her youngest daughter. The patient was last seen 01/30/23, currently taking Ocrevus. Since the patient's last visit the patient reports overall feeling worse. Issues with current therapy: Tolerating medication without side effects. 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 too Cognitive symptoms continue to be the worst Poor short term memory, difficulty word finding, getting lost in conversation, misplacing objects Uses a lot of notes, keeps things in the same spot Writing can be difficult - spasticity, numbness - difficulty gripping utensils Last saw OT maybe Fall 2021 Home PT/OT (via [facility]) is starting next week, 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 cane Leans on stroller when out of the house Denies falls Has not resumed Ampyra since moving back Finds that legs are swelling by the end of the day Feels her hormones are out of balance Feels everything is out of whack Is not necessarily a mood change, denies depression Feels she has a short fuse - baby's father can be stressful Has urinary urgency, does not have the strength to hold once the urgency hits Denies incontinence Denies concern for UTI Denies new neurological symptoms Is switching insurances in August Neuro-QoL Functions (higher=better functioning) Flowsheet Row Office Visit from 07/23/2023 in [facility] Office Visit from 01/17/2023 in [facility] Appointment from 01/15/2023 in [facility] Upper Extremity Domain T Score 28.29 31.35 30 Lower Extremity Domain T Score 36.94 36.94 39 Cognitive Function Domain T Score 30.7 28.53 38 Positive Affect Well Being T Score -- -- -- Ability To Participate In Social Roles T Score 39.9 39.9 43 Satisfaction With Social Roles T Score 39.66 39.66 45 Neuro-QoL Symptoms (higher=worse symptoms) Flowsheet Row Office Visit from 07/23/2023 in [facility] Office Visit from 01/17/2023 in [facility] Appointment from 01/15/2023 in [facility] Sleep Domain T Score 69.2 68.89 61 Fatigue Domain T Score 64.84 63.38 61 Anxiety Domain T Score 44.34 51.52 52 Depression Domain T Score 43.71 41.37 49 Stigma Domain T Score 51.47 57.1 59 Emotional Behavior Dyscontrol T Score -- -- -- has a past medical history of Abnormal Pap smear of cervix (2007), Anemia, Costochondritis, acute (04/17/2021), Edema of lower extremity (04/17/2021), Multiple sclerosis ([facility]), Seizure ([facility]), and Thyroid disease. She has no past medical history of Asthma, Blood dyscrasia, Breast disorder, Chlamydia, Chronic kidney disease, Complication of anesthesia, Coronary artery disease, Diabetes ([facility]), Diabetes, gestational, Gonorrhea, Herpes simplex virus (HSV) infection, History of pre-eclampsia in prior , currently , HIV infection ([facility]), Hypertension, Infertility, female, Liver disease, Malignant hyperthermia due to anesthesia, Mental disorder, Placental abruption, depression, hemorrhage, Rh incompatibility, Sickle cell anemia ([facility]), Syphilis, or Systemic lupus erythematosus ([facility]). has a current medication list which includes the following prescription(s): ketoconazole, ketoconazole, trazodone, ergocalciferol (vitamin d2), tizanidine, dalfampridine er, ocrelizumab, vitamin b complex, melatonin, fluticasone, magnesium oxide, and iv contrast. EXAM: BP 94/62 Pulse 69 Wt 56.7 kg (125 lb) LMP 07/06/2023 (Exact Date) BMI 19.87 kg/m Multiple Sclerosis Performance Test Flowsheet Row Office Visit from 07/23/2023 in [facility] Office Visit from 01/17/2023 in [facility] Processing Speed Total Number Correct 52 51 Low-contrast letter acuity test-2.5 percent opacity 12 11 Low-contrast letter acuity test-100 percent opacity 57 57 Dominant hand -- -- MDT Left Hand Time -- 45.47 MDT Right Hand Time -- 37.42 Walking Speed Test (25 feet) 10.91 7.88 General Appearance: well appearing, in no acute distress Mental status evaluation during the interview and examination showed Observed difficulities: word finding difficulties and poor short term memory memory Affect: Normal Extraocular movements: choppy pursuits, end gaze nystagmus Facial movements: Intact bilaterally Speech: normal Muscle tone: Right arm spasticity: None Right leg spasticity: None Left arm spasticity: None Left leg spasticity: None Muscle strength (#/5): Right Left Upper Extremity: Deltoids 5 5 Biceps 5- 5- Triceps 5 5 Rn Ante Partum 4 4- Dorsal interossei 4- 4- Lower extremity: Iliopsoas 5 5 Quadriceps 5 5 Hamstrings 5 5 Tibialis anterior 5 5 Gastrocnemius 5 5 Coordination: Upper extremity dexterity and rapid movements: Impaired bilaterally Finger-nose: moderate dysmetria or incoordination are evident, mildly worse on left Standard gait: right hemiparetic. Assistive device: independent RESULTS: CBC + Diff Component Value Date WBC 4.87 07/17/2023 HB 9.6 (L) 07/17/2023 HCT 34.2 (L) 07/17/2023 PLT 226 07/17/2023 ABSLYMPH 1.52 07/17/2023 Vitamin D Component Value Date VITD25 39.6 01/17/2023 CMP Component Value Date AST 17 07/17/2023 GLUC 80 07/17/2023 BUN 13 07/17/2023 CREAT 0.94 07/17/2023 NA 139 07/17/2023 K 4.4 07/17/2023 CHLOR 106 (H) 07/17/2023 ALT 10 07/17/2023 MRI Results: Discrete MRI Results Component Value Date Brain New T2 Lesions None Site 01/02/2023 Brain New T2 Lesions None Site 01/02/2023 Brain Enhancing Lesions None 01/02/2023 Brain Enhancing Lesions None 01/02/2023 Cervical Spine New T2 Lesions None 01/02/2023 Cervical Spine New T2 Lesions None 01/02/2023 Cervical spine enhancing lesions None 01/02/2023 Cervical spine enhancing lesions None 01/02/2023 ASSESSMENT: Smooth Martinez is a 37 year old female with Multiple Sclerosis. She is on Ocrevus for DMT. She denies any new neurological symptoms, continues to report difficulty sleeping, daytime fatigue, urinary urgency, and most notable, cognitive changes. She recent re-established care with her PCP who referred her to sleep medicine and initiated trazodone. She is also scheduled to begin home PT and OT, will add on speech therapy either through home services or [facility]. She reports her hormones feel out of whack, PCP ordered routine labs. Discussed she is to follow up with gynecology for hormone discussion, and also discussed mood management medications and therefore will consider Cymbalta. At this time she prefers to establish with [facility]. She is to have annual brain MRI in ~ 5 months and she will follow up at the time, sooner if clinically indicated. Exam is:Stable, continue with current IMDT. The prescribed disease modifying therapy for MS is having the expected benefit in this patient based on imaging and clinical criteria, and will be continued or refilled, with planned follow-up at approximately 6-month intervals to continue to assess response on an ongoing basis. MRI of the brain and/or spinal cord is being ordered to evaluate for efficacy of multiple sclerosis (MS) disease modifying therapy. Disease activity in MS is often not immediately detectable on history or examination, but is sensitively identified on MRI. If identified, new or active MS lesions on MRI may represent suboptimal response to MS therapy, and would change medical management. PLAN: - Continue Ocrevus (10/08/23) - MRI brain 12/2023 - Continue home PT/OT - Schedule outpatient 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 (cognitive therapy) - Magnesium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 performing a medically appropriate examination, counseling and educating the patient/family/caregiver, ordering medications, tests, or procedures, independently interpreting results (not separately reported), and communicating results to the patient/family/caregiver. Jose Raul Santana MD The chart was reviewed for possible participation in the following studies:MSPT, discussed enrollment today documented in this encounter [facility] 07-23-2022 Miscellaneous Notes Attempted to call patient to discuss scheduling further therapy appointments. Patient's line was unavailable and I could not leave a voicemail. documented in this encounter [facility] 07-22-2022 History of Present illness Narrative Episode Visit Count: 1 Therapist That Will Accept/Oversee The Plan Of Care: Deuce Ryan Start of Care Date: 05/30/22 Onset Date: 05/13/22 (diagnosed in 2006.) Plan of Care Certification Date: 08/02/22 Next Certification Due Date: 10/02/22 REHABILITATION AND SPORTS THERAPY OCCUPATIONAL THERAPY PROGRESS REPORT PLAN OF CARE UPDATE: Assessment: Smooth Martinez demonstrates improvements in L education department registrar however decrease noted in R education department registrar. Patient had noted improvements with L [facility] however decreased in speed for R. This is patient's first time back since evaluation in December. Issued HEP to work on impairments. She has progressed toward goals. Patient continues to present with impairments in coordination, sensation, and strength that interfere with dressing;cooking;cleaning (functional use of hands; ADLs) . Current prognosis is Good due to: good overall health status . She will benefit from continued skilled therapy services to meet the updated goals for this plan of care as noted below. Goals for Episode of Care created on 05/30/22 through 07/12/22 (extended through 10/2022) Updated: 07/22/22 (first time to therapy since ) *in progress Patient will complete HEP at [place] level. Patient will demonstrate improved neuromuscular coordination as evidenced by improved Box and Block test by 5 blocks improve function for roles as a mother. . Patient will report improved efficiency with picking up her toddler.. Patient Goals: To improve strength and coordination. Planned Interventions, Frequency, and Duration: 1x/week, 12 weeks Total Number of Visits Planned: 12 Planned Treatment Interventions: Therapeutic exercise (06272);Therapeutic activities (38500);Neuromuscular re-education (89953);Self-snf management (71372);Patient/Family/Caregiver Education PLAN FOR NEXT VISIT: f/u with education department registrar and pinch; FMC HEP SUBJECTIVE: Patient reports no new changes with [facility] or education department registrar. Functional Limitations: dressing;cooking;cleaning (functional use of hands; ADLs) Pain: Pain Pain Level: 0 Post Treatment Pain Post Treatment Pain Level: 0 PROMIS Scales Higher is Better 05/27/2022 05/27/2022 07/22/2022 Phys Func - Score - 35 (moderate dysfunction) 34 (moderate dysfunction) Phys Func - Percentile - 7 % 5 % Social Roles - Score - 39 (moderate dysfunction) - Social Role - Percentile - 14 % - GH Physical - Score - 32.4 (Poor) - GH Physical - Percentile 4 % 4 % - GH Mental - Score - Incomplete - GH Mental - Percentile - - - Self-Eff Symptom - Score - 34 (Low) 34 (Low) Self-Eff Symptom - Percentile - 5 % 5 % T-scores: mean of general population = 50. 5 points is clinically meaningfully difference Percentiles provide an indication of how the patient's score ranks in relation to the general population. Higher percentile rankings indicate better function/quality of life. 50th percentile is the average of the general population and indicates half of respondents had a worse score. Lower is Better 05/27/2022 Fatigue - Score 74 (severe) Fatigue - Percentile 1 % T-scores: mean of general population = 50. 5 points is clinically meaningfully difference Percentiles provide an indication of how the patient's score ranks in relation to the general population. Higher percentile rankings indicate better function/quality of life. 50th percentile is the average of the general population and indicates half of respondents had a worse score. OBJECTIVE MEASURES WITH LEVEL OF FUNCTION: Norms: Rn Ante Partum strength norms: Female age 35-39 R: 50-99 L: 49-91 Lateral pinch norms: Female age 35-39 R: 12-21 L: 12-22 Tripod pinch norms: Female age 35-39 R: 13-29 L: 12-24 9-Hole Peg Test norms: Female Age 35-39 R 13-20 L 13-21 Hand Strength R Rn Ante Partum Position 2 (lbs): 17.9 lbs L Rn Ante Partum Position 2 (lbs): 19.2 lbs R Lateral Pinch (lbs): 4 lbs L Lateral Pinch (lbs): 2 lbs Sensory Sensory Deficits: (hands numb) Current Activities Of Daily Living Feeding: Modified Independent (modifying tech; difficulty with cutting) Grooming: Minimal Assistance (difficulty with doing hair) Dressing Upper Body: Modified Independent (modified tech with bra) Dressing Lower Body: Modified Independent (increased time; difficulty with fasteners) Toileting: Modified Independent (difficulty with wiping;) Instrumental Activities of Daily Living Laundry: Modified Independent Additional Instrumental Activities of Daily Living: patient lives in a usp; does not need to cook, clean. Functional Performance Test Results 9 Hole Peg Test Right (seconds): 41.66 9 Hole Peg Test Left (seconds): 40.89 (multiple fumbles; decreased sensation) TREATMENT: Therapeutic Exercise: 1: Education for education department registrar and pinch HEP with therapy putty provided 2: Issued/educated FMC HEP 3: Issued/educated FMC HEP 4: Assessments completed to address goals, progress and discussed OT POC Skilled Intervention: Patient was educated in proper exercise technique and purpose for exercises. Patient education as noted. Billing Therapeutic Exercise Treatment Minutes: 45 Total Treatment Time Minutes (timed/untimed): 45 DELTA Jasso documented in this encounter [facility] 07-22-2022 History of Present illness Narrative Episode Visit Count: 2 Therapist That Will Accept/Oversee The Plan Of Care: Phuc Start of Care Date: 05/30/22 Onset Date: 03/29/07 Plan of Care Certification Date: 07/22/22 Next Certification Due Date: 09/20/22 REHABILITATION AND SPORTS THERAPY PHYSICAL THERAPY PROGRESS REPORT PLAN OF CARE UPDATE: Assessment: Smooth Martinez demonstrates improvements in balance, transfers since eval in May. She has progressed toward goals. Patient continues to present with impairments in balance, coordination, gait, independence in exercise, and strength that interfere with . Current prognosis is Good due to: positive past response to therapy . She will benefit from continued skilled therapy services to meet the updated goals for this plan of care as noted below. Goals for Episode of Care: created on 05/30/22 through 07/30/22 - update 07/22/22 - Patient will increase strength of lower extremities as measured by an improvement in the 5 Time Sit to Stand Test by 2.3 seconds (MCID) (Darvin, 2006) to 30 seconds to allow patient to safely transfer from various surfaces in community. progressing -Patient will improve 10 meter walk by 0.26 (MDC) to 1.1 meters/sec to allow patient to safely ambulate in community with daughter. NT -Patient will be independent with individualized home exercise program needed to maintain gains and continue to promote activity upon discharge and/or break from physical therapy. Progressing -Patient will be able to perform floor transfer with Mod I in order to be able to safely get up and off floor to give her daughter a bath. - MET -New goal: improve FGA to > 20 to demonstrate improved dynamic balance Patient Goals: to get strong enough to take care of daughter Planned Interventions, Frequency, and Duration: 2x/week, 4 weeks Total Number of Visits Planned: 8 Patient to be seen for Therapeutic exercise (92407);Neuromuscular re-education (46816);Therapeutic activities (09889);Self-snf management (39086);Gait Training (03304);Patient/Family/Caregiver Education SUBJECTIVE: Patient Reason for Visit: Transfer from [place] for MS- last relapse 2020, now on Ocrevus. No device, uses stroller to ambulate. No falls. She has numbness in hands and feet. Difficulty carrying toddler dtr (~1) but manages.. Falls Interview: Comments Falls Comments: fall risk per judgement Pain: Pain Pain Level: 0 Post Treatment Pain Post Treatment Pain Level: 0 PROMIS Scales Higher is Better 05/27/2022 05/27/2022 07/22/2022 Phys Func - Score - 35 (moderate dysfunction) 34 (moderate dysfunction) Phys Func - Percentile - 7 % 5 % Social Roles - Score - 39 (moderate dysfunction) - Social Role - Percentile - 14 % - GH Physical - Score - 32.4 (Poor) - GH Physical - Percentile 4 % 4 % - GH Mental - Score - Incomplete - GH Mental - Percentile - - - Self-Eff Symptom - Score - 34 (Low) 34 (Low) Self-Eff Symptom - Percentile - 5 % 5 % T-scores: mean of general population = 50. 5 points is clinically meaningfully difference Percentiles provide an indication of how the patient's score ranks in relation to the general population. Higher percentile rankings indicate better function/quality of life. 50th percentile is the average of the general population and indicates half of respondents had a worse score. Lower is Better 05/27/2022 Fatigue - Score 74 (severe) Fatigue - Percentile 1 % T-scores: mean of general population = 50. 5 points is clinically meaningfully difference Percentiles provide an indication of how the patient's score ranks in relation to the general population. Higher percentile rankings indicate better function/quality of life. 50th percentile is the average of the general population and indicates half of respondents had a worse score. OBJECTIVE MEASURES WITH LEVEL OF FUNCTION: Sensory Sensory Deficit Comments: impaired sensation all limbs LE Strength R Hip Extension: 2-/5 R Hip Flexion (L2): 3-/5 R Knee Flexion: 3-/5 R Ankle Dorsiflexion (L4): 3+/5 L Hip Extension: 3-/5 L Hip Flexion (L2): 3+/5 L Knee Flexion: 4-/5 L Ankle Dorsiflexion (L4): 4/5 Mobility Sit To Stand: Modified Independent Floor Transfer: MOD I Gait Gait: Independent Gait Observation: mild ataxia, decreased step length on the right and foot flat contact R > L Functional Performance Test Results Assistive Device: None 5 Times Sit to Stand Test : 56 sec Functional Gait Assessment Gait level surface : 2 - Mild impairment- walks 20' uses assist device, slower speed, mild gait deviation Change in gait speed: 2 - Mild impairment- is able to change speed but demonstrates mild gait deviations or no gait deviations but unable to achieve a significant change in velocity, or uses an assistive device Gait and horizontal head turns: 2 - Mild impairment- performs R/L head turns smoothly with slight change in gait velocity, minor disruption to smooth gait path or uses assistive device Gait and vertical head turns: 2 - Mild impairment- performs up/ down head turns smoothly with slight change in gait velocity, minor disruption to smooth gait path or uses assistive device Gait and pivot: 2 - Mild impairment- pivot turns safely in >3 sec, stops, no loss of balance Step over obstacle: 0 - Severe impairment- cannot perform without assistance Gait with narrow base of support : 0 - Severe impairment- ambulates less than 4 steps heel to toe or cannot perform without assistance Gait with eyes closed : 1 - Moderate impairment- walks 20', slow speed, abnormal gait pattern, evidence for imbalance, deviates 10-15 [address], requires more than 9 sec to ambulate 20 Ambulates backward : 1 - Moderate impairment- walks 20', slow speed, abnormal gait pattern, evidence for imbalance, deviates 10-15 outside 12 [address] Steps: 2 - Mild impairment- alternating feet, must use rail Functional Gait Assessment Total : 14 TREATMENT: Therapeutic Exercise: 1: Prone knee flexion 2: Supine Heel slide * 3: Prone leg lift 4: Quadruped hip ext- with difficulty 5: kneel to tall kneel - light UE support 6: Tall kneel holding Skilled Intervention: Patient was educated in proper exercise technique and purpose for exercises. Skilled judgment was provided in selection of appropriate interventions. Patient education as noted. Therapeutic Activity: 1: balance outcome measures as noted. Skilled Intervention: Proper patient guarding to prevent falls/increase patient safety with contact guard assistance to assist patient while performing balance activities Educated on proper/safe technique for activities performed today. Activity progression based on professional judgment. Billing Therapeutic Exercise Treatment Minutes: 20 Therapeutic Activity Treatment Minutes: 25 Total Treatment Time Minutes (timed/untimed): 45 Shonda Friend PT documented in this encounter [facility] 07-22-2022 History of Past i llness Narrative Problem Noted Date Diagnosed Date Resolved Date Cognitive communication deficit 07/22/2022 07/17/2023 Costochondritis, acute 04/17/202104/20 Edema of lower extremity 04/17/202109/2021 Hypoglycemia 03/07/2021 07/17/2023 NO SHOW 01/22/2021 04/17/2021 Encounter for induction of labor 01/08/2021 01/11/2021 Encounter for supervision of normal first in third trimester 01/02/2021 01/11/2021 Low maternal weight gain, third trimester 01/02/2021 01/11/2021 GBS (group B Streptococcus c arrier), +RV culture, currently 01/02/2021 01/11/2021 Poor growth affecting management of mother in third trimester 12/25/2020 01/11/2021 AMA (advanced maternal age) primigravida 35+, second trimester 2020 01/11/2021 History of loop electrosurgi guerline excision procedure (LEEP) of cervix affecting in second trimester 2020 01/11/2021 Constipation 10/06/2019 07/17/2023 Gait difficulty 10/06/2019 07/17/2023 Cognitive complaints 03/03/2019 023 Syncope and collapse 12/04/2018 023 Obstructive sleep apnea 07/28/201705/2023 Overview: Updating Deprecated Diagnoses Somnolence, daytime 07/28/2017 04/20/20 21 documented as of this encounter (statuses as of 07/23/2023) [facility] History of Past illness Narrative* Problem Noted Date Diagnosed Date Resolved Date Cognitive communication deficit 07/22/2022 07/17/2023 Costochondritis, acute 04/17/202104/20 Edema of lower extremity 04/17/202109/2021 Hypoglycemia 03/07/2021 07/17/2023 NO SHOW 01/22/2021 04/17/2021 Encounter for induction of labor 01/08/2021 01/11/2021 Encounter for supervision of normal first in third trimester 01/02/2021 01/11/2021 Low maternal weight gain, third trimester 01/02/2021 01/11/2021 GBS (group B Streptococcus c arrier), +RV culture, currently 01/02/2021 01/11/2021 Poor growth affecting management of mother in third trimester 12/25/2020 01/11/2021 AMA (advanced maternal age) primigravida 35+, second trimester 2020 01/11/2021 History of loop electrosurgi guerline excision procedure (LEEP) of cervix affecting in second trimester 2020 01/11/2021 Constipation 10/06/2019 07/17/2023 Gait difficulty 10/06/2019 07/17/2023 Cognitive complaints 03/03/2019 023 Syncope and collapse 12/04/2018 023 Obstructive sleep apnea 07/28/2017/0 05/2023 Overview: Updating Deprecated Diagnoses Somnolence, daytime 07/28/2017 04/20/20 21 documented as of this encounter (statuses as of 08/01/2023) [facility] History of Past illness Narrative* Problem Noted Date Diagnosed Date Resolved Date Cognitive communication deficit 07/22/2022 07/17/2023 Costochondritis, acute 04/17/202104/20 Edema of lower extremity 04/17/202109/2021 Hypoglycemia 03/07/2021 07/17/2023 NO SHOW 01/22/2021 04/17/2021 Encounter for induction of labor 01/08/2021 01/11/2021 Encounter for supervision of normal first in third trimester 01/02/2021 01/11/2021 Low maternal weight gain, third trimester 01/02/2021 01/11/2021 GBS (group B Streptococcus c rani), +RV culture, currently 01/02/2021 01/11/2021 Poor growth affecting management of mother in third trimester 12/25/2020 01/11/2021 AMA (advanced maternal age) primigravida 35+, second trimester 2020 01/11/2021 History of loop electrosurgi guerline excision procedure (LEEP) of cervix affecting in second trimester 2020 01/11/2021 Constipation 10/06/2019 07/17/2023 Gait difficulty 10/06/2019 07/17/2023 Cognitive complaints 03/03/2019 023 Syncope and collapse 12/04/2018 023 Obstructive sleep apnea 07/28/201705/2023 Overview: Updating Deprecated Diagnoses Somnolence, daytime 07/28/2017 04/20/20 21 documented as of this encounter (statuses as of 08/01/2023) [facility] History of Past illness Narrative* Problem Noted Date Diagnosed Date Resolved Date Cognitive communication deficit 07/22/2022 07/17/2023 Costochondritis, acute 04/17/202104/20 Edema of lower extremity 04/17/202109/2021 Hypoglycemia 03/07/2021 07/17/2023 NO SHOW 01/22/2021 04/17/2021 Encounter for induction of labor 01/08/2021 01/11/2021 Encounter for supervision of normal first in third trimester 01/02/2021 01/11/2021 Low maternal weight gain, third trimester 01/02/2021 01/11/2021 GBS (group B Streptococcus c arrier), +RV culture, currently 01/02/2021 01/11/2021 Poor growth affecting management of mother in third trimester 12/25/2020 01/11/2021 AMA (advanced maternal age) primigravida 35+, second trimester 2020 01/11/2021 History of loop electrosurgi guerline excision procedure (LEEP) of cervix affecting in second trimester 2020 01/11/2021 Constipation 10/06/2019 07/17/2023 Gait difficulty 10/06/2019 07/17/2023 Cognitive complaints 03/03/2019 023 Syncope and collapse 12/04/2018 023 Obstructive sleep apnea 07/28/201705/2023 Overview: Updating Deprecated Diagnoses Somnolence, daytime 07/28/2017 04/20/20 21 documented as of this encounter (statuses as of 08/02/2023) [facility] History of Past illness Narrative* Problem Noted Date Diagnosed Date Resolved Date Cognitive communication deficit 07/22/2022 07/17/2023 Costochondritis, acute 04/17/202104/20 Edema of lower extremity 04/17/202109/2021 Hypoglycemia 03/07/2021 07/17/2023 NO SHOW 01/22/2021 04/17/2021 Encounter for induction of labor 01/08/2021 01/11/2021 Encounter for supervision of normal first in third trimester 01/02/2021 01/11/2021 Low maternal weight gain, third trimester 01/02/2021 01/11/2021 GBS (group B Streptococcus c arrier), +RV culture, currently 01/02/2021 01/11/2021 Poor growth affecting management of mother in third trimester 12/25/2020 01/11/2021 AMA (advanced maternal age) primigravida 35+, second trimester 2020 01/11/2021 History of loop electrosurgi guerline excision procedure (LEEP) of cervix affecting in second trimester 2020 01/11/2021 Constipation 10/06/2019 07/17/2023 Gait difficulty 10/06/2019 07/17/2023 Cognitive complaints 03/03/2019 023 Syncope and collapse 12/04/2018 023 Obstructive sleep apnea 07/28/20170 05/2023 Overview: Updating Deprecated Diagnoses Somnolence, daytime 07/28/2017 04/20/20 21 documented as of this encounter (statuses as of 08/26/2023) [facility] History of Past illness Narrative* Problem Noted Date Diagnosed Date Resolved Date Cognitive communication deficit 07/22/2022 07/17/2023 Costochondritis, acute 04/17/202104/20 Edema of lower extremity 04/17/202109/2021 Hypoglycemia 03/07/2021 07/17/2023 NO SHOW 01/22/2021 04/17/2021 Encounter for induction of labor 01/08/2021 01/11/2021 Encounter for supervision of normal first in third trimester 01/02/2021 01/11/2021 Low maternal weight gain, third trimester 01/02/2021 01/11/2021 GBS (group B Streptococcus c arrier), +RV culture, currently 01/02/2021 01/11/2021 Poor growth affecting management of mother in third trimester 12/25/2020 01/11/2021 AMA (advanced maternal age) primigravida 35+, second trimester 2020 01/11/2021 History of loop electrosurgi guerline excision procedure (LEEP) of cervix affecting in second trimester 2020 01/11/2021 Constipation 10/06/2019 07/17/2023 Gait difficulty 10/06/2019 07/17/2023 Cognitive complaints 03/03/2019 023 Syncope and collapse 12/04/2018 023 Obstructive sleep apnea 07/28/20170 05/2023 Overview: Updating Deprecated Diagnoses Somnolence, daytime 07/28/2017 04/20/20 21 documented as of this encounter (statuses as of 09/24/2023) [facility] History of Past illness Narrative* Problem Noted Date Diagnosed Date Resolved Date Cognitive communication deficit 07/22/2022 07/17/2023 Costochondritis, acute 04/17/202104/20 Edema of lower extremity 04/17/202109/2021 Hypoglycemia 03/07/2021 07/17/2023 NO SHOW 01/22/2021 04/17/2021 Encounter for induction of labor 01/08/2021 01/11/2021 Encounter for supervision of normal first in third trimester 01/02/2021 01/11/2021 Low maternal weight gain, third trimester 01/02/2021 01/11/2021 GBS (group B Streptococcus c arrier), +RV culture, currently 01/02/2021 01/11/2021 Poor growth affecting management of mother in third trimester 12/25/2020 01/11/2021 AMA (advanced maternal age) primigravida 35+, second trimester 2020 01/11/2021 History of loop electrosurgi guerline excision procedure (LEEP) of cervix affecting in second trimester 2020 01/11/2021 Constipation 10/06/2019 07/17/2023 Gait difficulty 10/06/2019 07/17/2023 Cognitive complaints 03/03/201907/ 023 Syncope and collapse 12/04/2018 023 Obstructive sleep apnea 07/28/2017 09/0 05/2023 Overview: Updating Deprecated Diagnoses Somnolence, daytime 07/28/2017 04/20/20 21 documented as of this encounter (statuses as of 09/25/2023) [facility] History of Past illness Narrative* Problem Noted Date Diagnosed Date Resolved Date Cognitive communication deficit 07/22/2022 07/17/2023 Costochondritis, acute 04/17/202104/20 Edema of lower extremity 04/17/202109/2021 Hypoglycemia 03/07/2021 07/17/2023 NO SHOW 01/22/2021 04/17/2021 Encounter for induction of labor 01/08/2021 01/11/2021 Encounter for supervision of normal first in third trimester 01/02/2021 01/11/2021 Low maternal weight gain, third trimester 01/02/2021 01/11/2021 GBS (group B Streptococcus c arrier), +RV culture, currently 01/02/2021 01/11/2021 Poor growth affecting management of mother in third trimester 12/25/2020 01/11/2021 AMA (advanced maternal age) primigravida 35+, second trimester 2020 01/11/2021 History of loop electrosurgi guerline excision procedure (LEEP) of cervix affecting in second trimester 2020 01/11/2021 Constipation 10/06/2019 07/17/2023 Gait difficulty 10/06/2019 07/17/2023 Cognitive complaints 03/03/2019 023 Syncope and collapse 12/04/2018 023 Obstructive sleep apnea 07/28/201705/2023 Overview: Updating Deprecated Diagnoses Somnolence, daytime 07/28/2017 04/20/20 21 documented as of this encounter (statuses as of 09/30/2023) [facility] History of Past illness Narrative* Problem Noted Date Diagnosed Date Resolved Date Cognitive communication deficit 07/22/2022 07/17/2023 Costochondritis, acute 04/17/202104/20 Edema of lower extremity 04/17/202109/2021 Hypoglycemia 03/07/2021 07/17/2023 NO SHOW 01/22/2021 04/17/2021 Encounter for induction of labor 01/08/2021 01/11/2021 Encounter for supervision of normal first in third trimester 01/02/2021 01/11/2021 Low maternal weight gain, third trimester 01/02/2021 01/11/2021 GBS (group B Streptococcus c arrier), +RV culture, currently 01/02/2021 01/11/2021 Poor growth affecting management of mother in third trimester 12/25/2020 01/11/2021 AMA (advanced maternal age) primigravida 35+, second trimester 2020 01/11/2021 History of loop electrosurgi guerline excision procedure (LEEP) of cervix affecting in second trimester 2020 01/11/2021 Constipation 10/06/2019 07/17/2023 Gait difficulty 10/06/2019 07/17/2023 Cognitive complaints 03/03/2019 023 Syncope and collapse 12/04/2018 023 Obstructive sleep apnea 07/28/201705/2023 Overview: Updating Deprecated Diagnoses Somnolence, daytime 07/28/2017 04/20/20 21 documented as of this encounter (statuses as of 10/13/2023) [facility] History of Present illness Narrative* Amina Vazquez CCC-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 - 07/22/2022 12:45 PM EDT Episode Visit Count: 2 Therapist That Will Oversee The Plan Of Care: Amina Vazquez Start of Care Date: 05/30/22 Onset Date: 04/25/22 Plan of Care Certification Date: 07/22/22 Next Certification Due Date: 09/20/22 Patient Identified by Name and Date of : Yes [facility] SPEECH THERAPY RE-EVALUATION PLAN OF CARE UPDATE: Impression: Communication deficits identified: Cognitive deficits;Expressive aphasia Progress Toward Goals: Progressing slower than expected Due To: lack of attendance to therapy Functional gains: Increased use of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 Dorsiflexors 4-/5 Plantarflexors 4-/5 Plantarflexors 4-/5 Sensory examination: Light touch: decreased RUE and RLE. Gait was unsteady. REVIEW OF OUTSIDE RECORDS: Per HPI REVIEW OF IMAGING STUDIES: I personally reviewed the following images: 02/24/21 MRI brain moderate brain lesion burden and upper cervical cord lesions. ASSESSMENT: 36 year old woman with highly active MS doing well on Ocrevus. Discussed plan below. PLAN: - MRI brain and C-T spine now - Monitoring labs now; UA/urine culture - EEG prior to starting Ampyra - Followup with Dr. Jose Raul Santana in [place], [place] - PT/ST/OT - completed MSAA cooling vest application I spent a total of 92 minutes on the date of the service which included preparing to see the patient, [id number] patient care, completing clinical documentation, obtaining and/or reviewing separately obtained history, performing a medically appropriate examination, counseling and educating the pat ient/family/caregiver, ordering medications, tests, or procedures, communicating with other HCPs (not separately reported), independently interpreting results (not separately reported), communicatingresults to the patient/family/caregiver and care coordination (not separately reported). Marshall Hanley MD, PhD Associate Staff Neurologist [facility] Multiple Sclerosis documented in this encounterMercy Health [facility]05-17-2022 Nurse Note* Zahida Duarte - 03/26/2022 8:54 AM EDT patient reported no active infections at this time. patient states no open skin/wounds as well. patient confirmed not taking any antibiotics nor steroids currently. documented in this encounterMercy Health [facility]05-03-2022 Miscellaneous Notes* Telephone Encounter - Rossy Silvestre - 03/12/2022 8:29 AM EDT Per Email === PHARMACY TEAM ==== APPROVAL RECEIVED Benefit Type: Medical Insurance Name: Payor: [employer] / [facility] [employer] [facility] / Product Type: HMO / Authorization received via fax Drug Name(s) & HCPCS Code(s): (OCREVUS) J2350 Approval Date Range: 02/26/22 to 02/25/23 Approval #: [id number] Dose & Frequency: 300mg D1, D15 Q6M then 600mg Q6M # Visits/Treatments (if applicable): 3 Temporary Site of Care Approval: N/A * Telephone Encounter - Reny Calderon RN - 03/11/2022 4:05 PM EDT Additional email forwarded to Pharm Auth Team for update on the below * Telephone Encounter - Rossy Slivestre - 03/04/2022 3:48 PM EDT email sent to pharm auth team re: message below. Ocrevus has been authorized, and patient has received it in [place] in the past. * Telephone Encounter - Hanna Abel Pss - 03/04/2022 3:20 PM EDT Lilo from [employer] called to inform our office that the Ocrevus PA is approved under doctors name only, with no location. Per Lilo, the [place] location is considered out of Network with the patient's insurance([employer]) and she does not have out of network coverage. [employer] recommends that the authorization department ask to have the authorization transferred to [place], or appealed.Otherwise the patient must have her infusion at another location. Authorization #[id number] documented in this encounterMercy [facility]06-08-2021 History of Past illness Narrative* Problem Noted Date Resolved Date Costochondritis, acute 04/17/2021 Edema of lower extremity 04/17/2021 021 NO SHOW 01/22/2021 04/17/2021 Encounter for induction of labor 01/08/2021 01/11/2021 Encounter for supervision of normal first in third trimester 01/02/2021 01/11/2021 Low maternal weight gain, third trimester 202001/11/2021 GBS (group B Streptococcus c rani), +RV culture, currently 01/02/2021 01/11/2021 Poor growth affecting management of mother in third trimester 12/25/2020 01/11/2021 AMA (advanced maternal age) primigravida 35+, second trimester 2020 01/11/2021 History of loop electrosurgi guerline excision procedure (LEEP) of cervix affecting in second trimester 2020 021 Somnolence, daytime 07/28/2017 04/20/2021 documented as of this encounter (statuses as of 03/12/2022) [facility] of Past illness Narrative* Problem Noted Date Resolved Date Costochondritis, acute 04/17/2021 Edema of lower extremity 04/17/2021 021 NO SHOW 01/22/2021 04/17/2021 Encounter for induction of labor 01/08/2021 01/11/2021 Encounter for supervision of normal first in third trimester 01/02/2021 01/11/2021 Low maternal weight gain, third trimester 202001/11/2021 GBS (group B Streptococcus c arrier), +RV culture, currently 01/02/2021 01/11/2021 Poor growth affecting management of mother in third trimester 12/25/2020 01/11/2021 AMA (advanced maternal age) primigravida 35+, second trimester 2020 01/11/2021 History of loop electrosurgi guerline excision procedure (LEEP) of cervix affecting in second trimester 2020 021 Somnolence, daytime 07/28/2017 04/20/2021 documented as of this encounter (statuses as of 03/26/2022) [facility] of Past illness Narrative* Problem Noted Date Resolved Date Costochondritis, acute 04/17/2021 Edema of lower extremity 04/17/2021 021 NO SHOW 01/22/2021 04/17/2021 Encounter for induction of labor 01/08/2021 01/11/2021 Encounter for supervision of normal first in third trimester 01/02/2021 01/11/2021 Low maternal weight gain, third trimester 202001/11/2021 GBS (group B Streptococcus c arrier), +RV culture, currently 01/02/2021 01/11/2021 Poor growth affecting management of mother in third trimester 12/25/2020 01/11/2021 AMA (advanced maternal age) primigravida 35+, second trimester 2020 01/11/2021 History of loop electrosurgi guerline excision procedure (LEEP) of cervix affecting in second trimester 2020 021 Somnolence, daytime 07/28/2017 04/20/2021 documented as of this encounter (statuses as of 04/25/2022) [facility] of Past illness Narrative* Problem Noted Date Resolved Date Costochondritis, acute 04/17/2021 Edema of lower extremity 04/17/2021 021 NO SHOW 01/22/2021 04/17/2021 Encounter for induction of labor 01/08/2021 01/11/2021 Encounter for supervision of normal first in third trimester 01/02/2021 01/11/2021 Low maternal weight gain, third trimester 202001/11/2021 GBS (group B Streptococcus c arrier), +RV culture, currently 01/02/2021 01/11/2021 Poor growth affecting management of mother in third trimester 12/25/2020 01/11/2021 AMA (advanced maternal age) primigravida 35+, second trimester 2020 01/11/2021 History of loop electrosurgi guerline excision procedure (LEEP) of cervix affecting in second trimester 2020 021 Somnolence, daytime 07/28/2017 04/20/2021 documented as of this encounter (statuses as of 04/25/2022) [facility] of Past illness Narrative* Problem Noted Date Resolved Date Costochondritis, acute 04/17/2021 Edema of lower extremity 04/17/2021 021 NO SHOW 01/22/2021 04/17/2021 Encounter for induction of labor 01/08/2021 01/11/2021 Encounter for supervision of normal first in third trimester 01/02/2021 01/11/2021 Low maternal weight gain, third trimester 202001/11/2021 GBS (group B Streptococcus c arrier), +RV culture, currently 01/02/2021 01/11/2021 Poor growth affecting management of mother in third trimester 12/25/2020 01/11/2021 AMA (advanced maternal age) primigravida 35+, second trimester 2020 01/11/2021 History of loop electrosurgi guerline excision procedure (LEEP) of cervix affecting in second trimester 2020 021 Somnolence, daytime 07/28/2017 04/20/2021 documented as of this encounter (statuses as of 05/30/2022) [facility] of Past illness Narrative* Problem Noted Date Resolved Date Costochondritis, acute 04/17/2021 Edema of lower extremity 04/17/2021 021 NO SHOW 01/22/2021 04/17/2021 Encounter for induction of labor 01/08/2021 01/11/2021 Encounter for supervision of normal first in third trimester 01/02/2021 01/11/2021 Low maternal weight gain, third trimester 202001/11/2021 GBS (group B Streptococcus c arrier), +RV culture, currently 01/02/2021 01/11/2021 Poor growth affecting management of mother in third trimester 12/25/2020 01/11/2021 AMA (advanced maternal age) primigravida 35+, second trimester 2020 01/11/2021 History of loop electrosurgi guerline excision procedure (LEEP) of cervix affecting in second trimester 2020 021 Somnolence, daytime 07/28/2017 04/20/2021 documented as of this encounter (statuses as of 05/30/2022) [facility] Narrative* Problem Noted Date Resolved Date Costochondritis, acute 04/17/2021 Edema of lower extremity 04/17/2021 021 NO SHOW 01/22/2021 04/17/2021 Encounter for induction of labor 01/08/2021 01/11/2021 Encounter for supervision of normal first in third trimester 01/02/2021 01/11/2021 Low maternal weight gain, third trimester 202001/11/2021 GBS (group B Streptococcus c arrier), +RV culture, currently 01/02/2021 01/11/2021 Poor growth affecting management of mother in third trimester 12/25/2020 01/11/2021 AMA (advanced maternal age) primigravida 35+, second trimester 2020 01/11/2021 History of loop electrosurgi guerline excision procedure (LEEP) of cervix affecting in second trimester 2020 021 Somnolence, daytime 07/28/2017 04/20/2021 documented as of this encounter (statuses as of 06/21/2022) [facility] Narrative* Problem Noted Date Resolved Date Costochondritis, acute 04/17/2021 Edema of lower extremity 04/17/2021 021 NO SHOW 01/22/2021 04/17/2021 Encounter for induction of labor 01/08/2021 01/11/2021 Encounter for supervision of normal first in third trimester 01/02/2021 01/11/2021 Low maternal weight gain, third trimester 202001/11/2021 GBS (group B Streptococcus c arrier), +RV culture, currently 01/02/2021 01/11/2021 Poor growth affecting management of mother in third trimester 12/25/2020 01/11/2021 AMA (advanced maternal age) primigravida 35+, second trimester 2020 01/11/2021 History of loop electrosurgi guerline excision procedure (LEEP) of cervix affecting in second trimester 2020 021 Somnolence, daytime 07/28/2017 04/20/2021 documented as of this encounter (statuses as of 07/02/2022) [facility] Past illness Narrative* Problem Noted Date Resolved Date Costochondritis, acute 04/17/2021 Edema of lower extremity 04/17/2021 021 NO SHOW 01/22/2021 04/17/2021 Encounter for induction of labor 01/08/2021 01/11/2021 Encounter for supervision of normal first in third trimester 01/02/2021 01/11/2021 Low maternal weight gain, third trimester 202001/11/2021 GBS (group B Streptococcus c arrier), +RV culture, currently 01/02/2021 01/11/2021 Poor growth affecting management of mother in third trimester 12/25/2020 01/11/2021 AMA (advanced maternal age) primigravida 35+, second trimester 2020 01/11/2021 History of loop electrosurgi guerline excision procedure (LEEP) of cervix affecting in second trimester 2020 021 Somnolence, daytime 07/28/2017 04/20/2021 documented as of this encounter (statuses as of 07/22/2022) [facility]-08[facility]2021 History of Past illness Narrative* Problem Noted Date Resolved Date Costochondritis, acute 04/17/2021 Edema of lower extremity 04/17/2021 021 NO SHOW 01/22/2021 04/17/2021 Encounter for induction of labor 01/08/2021 01/11/2021 Encounter for supervision of normal first in third trimester 01/02/2021 01/11/2021 Low maternal weight gain, third trimester 202001/11/2021 GBS (group B Streptococcus c arrier), +RV culture, currently 01/02/2021 01/11/2021 Poor growth affecting management of mother in third trimester 12/25/2020 01/11/2021 AMA (advanced maternal age) primigravida 35+, second trimester 2020 01/11/2021 History of loop electrosurgi guerline excision procedure (LEEP) of cervix affecting in second trimester 2020 021 Somnolence, daytime 07/28/2017 04/20/2021 documented as of this encounter (statuses as of 07/22/2022) [facility]21 History of Past illness Narrative* Problem Noted Date Resolved Date Costochondritis, acute 04/17/2021 Edema of lower extremity 04/17/2021 021 NO SHOW 01/22/2021 04/17/2021 Encounter for induction of labor 01/08/2021 01/11/2021 Encounter for supervision of normal first in third trimester 01/02/2021 01/11/2021 Low maternal weight gain, third trimester 202001/11/2021 GBS (group B Streptococcus c arrier), +RV culture, currently 01/02/2021 01/11/2021 Poor growth affecting management of mother in third trimester 12/25/2020 01/11/2021 AMA (advanced maternal age) primigravida 35+, second trimester 2020 01/11/2021 History of loop electrosurgi guerline excision procedure (LEEP) of cervix affecting in second trimester 2020 021 Somnolence, daytime 07/28/2017 04/20/2021 documented as of this encounter (statuses as of 07/22/2022) [facility] History of Past illness Narrative* Problem Noted Date Resolved Date Costochondritis, acute 04/17/2021 Edema of lower extremity 04/17/2021 021 NO SHOW 01/22/2021 04/17/2021 Encounter for induction of labor 01/08/2021 01/11/2021 Encounter for supervision of normal first in third trimester 01/02/2021 01/11/2021 Low maternal weight gain, third trimester 202001/11/2021 GBS (group B Streptococcus c arrier), +RV culture, currently 01/02/2021 01/11/2021 Poor growth affecting management of mother in third trimester 12/25/2020 01/11/2021 AMA (advanced maternal age) primigravida 35+, second trimester 2020 01/11/2021 History of loop electrosurgi guerline excision procedure (LEEP) of cervix affecting in second trimester 2020 021 Somnolence, daytime 07/28/2017 04/20/2021 documented as of this encounter (statuses as of 07/23/2022) [facility] History of Past illness Narrative* Problem Noted Date Resolved Date Costochondritis, acute 04/17/2021 Edema of lower extremity 04/17/2021 021 NO SHOW 01/22/2021 04/17/2021 Encounter for induction of labor 01/08/2021 01/11/2021 Encounter for supervision of normal first in third trimester 01/02/2021 01/11/2021 Low maternal weight gain, third trimester 202001/11/2021 GBS (group B Streptococcus c arrier), +RV culture, currently 01/02/2021 01/11/2021 Poor growth affecting management of mother in third trimester 12/25/2020 01/11/2021 AMA (advanced maternal age) primigravida 35+, second trimester 2020 01/11/2021 History of loop electrosurgi guerline excision procedure (LEEP) of cervix affecting in second trimester 2020 021 Somnolence, daytime 07/28/2017 04/20/2021 documented as of this encounter (statuses as of 08/08/2022) [facility] History of Past illness Narrative* Problem Noted Date Resolved Date Costochondritis, acute 04/17/2021 Edema of lower extremity 04/17/2021 021 NO SHOW 01/22/2021 04/17/2021 Encounter for induction of labor 01/08/2021 01/11/2021 Encounter for supervision of normal first in third trimester 01/02/2021 01/11/2021 Low maternal weight gain, third trimester 202001/11/2021 GBS (group B Streptococcus c arrier), +RV culture, currently 01/02/2021 01/11/2021 Poor growth affecting management of mother in third trimester 12/25/2020 01/11/2021 AMA (advanced maternal age) primigravida 35+, second trimester 2020 01/11/2021 History of loop electrosurgi guerline excision procedure (LEEP) of cervix affecting in second trimester 2020 021 Somnolence, daytime 07/28/2017 04/20/2021 documented as of this encounter (statuses as of 08/08/2022) [facility] History of Past illness Narrative* Problem Noted Date Resolved Date Costochondritis, acute 04/17/2021 Edema of lower extremity 04/17/2021 021 NO SHOW 01/22/2021 04/17/2021 Encounter for induction of labor 01/08/2021 01/11/2021 Encounter for supervision of normal first in third trimester 01/02/2021 01/11/2021 Low maternal weight gain, third trimester 202001/11/2021 GBS (group B Streptococcus c arrier), +RV culture, currently 01/02/2021 01/11/2021 Poor growth affecting management of mother in third trimester 12/25/2020 01/11/2021 AMA (advanced maternal age) primigravida 35+, second trimester 2020 01/11/2021 History of loop electrosurgi guerline excision procedure (LEEP) of cervix affecting in second trimester 2020 021 Somnolence, daytime 07/28/2017 04/20/2021 documented as of this encounter (statuses as of 08/14/2022) [facility] History of Past illness Narrative* Problem Noted Date Resolved Date Costochondritis, acute 04/17/2021 Edema of lower extremity 04/17/2021 021 NO SHOW 01/22/2021 04/17/2021 Encounter for induction of labor 01/08/2021 01/11/2021 Encounter for supervision of normal first in third trimester 01/02/2021 01/11/2021 Low maternal weight gain, third trimester 202001/11/2021 GBS (group B Streptococcus c arrier), +RV culture, currently 01/02/2021 01/11/2021 Poor growth affecting management of mother in third trimester 12/25/2020 01/11/2021 AMA (advanced maternal age) primigravida 35+, second trimester 2020 01/11/2021 History of loop electrosurgi guerline excision procedure (LEEP) of cervix affecting in second trimester 2020 021 Somnolence, daytime 07/28/2017 04/20/2021 documented as of this encounter (statuses as of 09/06/2022) [facility] History of Past illness Narrative* Problem Noted Date Resolved Date Costochondritis, acute 04/17/2021 Edema of lower extremity 04/17/2021 021 NO SHOW 01/22/2021 04/17/2021 Encounter for induction of labor 01/08/2021 01/11/2021 Encounter for supervision of normal first in third trimester 01/02/2021 01/11/2021 Low maternal weight gain, third trimester 202001/11/2021 GBS (group B Streptococcus c arrier), +RV culture, currently 01/02/2021 01/11/2021 Poor growth affecting management of mother in third trimester 12/25/2020 01/11/2021 AMA (advanced maternal age) primigravida 35+, second trimester 2020 01/11/2021 History of loop electrosurgi guerline excision procedure (LEEP) of cervix affecting in second trimester 2020 021 Somnolence, daytime 07/28/2017 04/20/2021 documented as of this encounter (statuses as of 09/27/2022) [facility] History of Past illness Narrative* Problem Noted Date Resolved Date Costochondritis, acute 04/17/2021 Edema of lower extremity 04/17/2021 021 NO SHOW 01/22/2021 04/17/2021 Encounter for induction of labor 01/08/2021 01/11/2021 Encounter for supervision of normal first in third trimester 01/02/2021 01/11/2021 Low maternal weight gain, third trimester 202001/11/2021 GBS (group B Streptococcus c arrier), +RV culture, currently 01/02/2021 01/11/2021 Poor growth affecting management of mother in third trimester 12/25/2020 01/11/2021 AMA (advanced maternal age) primigravida 35+, second trimester 2020 01/11/2021 History of loop electrosurgi guerline excision procedure (LEEP) of cervix affecting in second trimester 2020 021 Somnolence, daytime 07/28/2017 04/20/2021 documented as of this encounter (statuses as of 10/02/2022) [facility] History of Past illness Narrative* Problem Noted Date Resolved Date Costochondritis, acute 04/17/2021 Edema of lower extremity 04/17/2021 021 NO SHOW 01/22/2021 04/17/2021 Encounter for induction of labor 01/08/2021 01/11/2021 Encounter for supervision of normal first in third trimester 01/02/2021 01/11/2021 Low maternal weight gain, third trimester 202001/11/2021 GBS (group B Streptococcus c arrier), +RV culture, currently 01/02/2021 01/11/2021 Poor growth affecting management of mother in third trimester 12/25/2020 01/11/2021 AMA (advanced maternal age) primigravida 35+, second trimester 2020 01/11/2021 History of loop electrosurgi guerline excision procedure (LEEP) of cervix affecting in second trimester 2020 021 Somnolence, daytime 07/28/2017 04/20/2021 documented as of this encounter (statuses as of 10/28/2022) [facility] History of Past illness Narrative* Problem Noted Date Resolved Date Costochondritis, acute 04/17/2021 Edema of lower extremity 04/17/2021 021 NO SHOW 01/22/2021 04/17/2021 Encounter for induction of labor 01/08/2021 01/11/2021 Encounter for supervision of normal first in third trimester 01/02/2021 01/11/2021 Low maternal weight gain, third trimester 202001/11/2021 GBS (group B Streptococcus c arrier), +RV culture, currently 01/02/2021 01/11/2021 Poor growth affecting management of mother in third trimester 12/25/2020 01/11/2021 AMA (advanced maternal age) primigravida 35+, second trimester 2020 01/11/2021 History of loop electrosurgi guerline excision procedure (LEEP) of cervix affecting in second trimester 2020 021 Somnolence, daytime 07/28/2017 04/20/2021 documented as of this encounter (statuses as of 11/13/2022) [facility] History of Past illness Narrative* Problem Noted Date Resolved Date Costochondritis, acute 04/17/2021 Edema of lower extremity 04/17/2021 021 NO SHOW 01/22/2021 04/17/2021 Encounter for induction of labor 01/08/2021 01/11/2021 Encounter for supervision of normal first in third trimester 01/02/2021 01/11/2021 Low maternal weight gain, third trimester 202001/11/2021 GBS (group B Streptococcus c arrier), +RV culture, currently 01/02/2021 01/11/2021 Poor growth affecting management of mother in third trimester 12/25/2020 01/11/2021 AMA (advanced maternal age) primigravida 35+, second trimester 2020 01/11/2021 History of loop electrosurgi guerline excision procedure (LEEP) of cervix affecting in second trimester 2020 021 Somnolence, daytime 07/28/2017 04/20/2021 documented as of this encounter (statuses as of 11/13/2022) [facility] History of Past illness Narrative* Problem Noted Date Resolved Date Costochondritis, acute 04/17/2021 Edema of lower extremity 04/17/2021 021 NO SHOW 01/22/2021 04/17/2021 Encounter for induction of labor 01/08/2021 01/11/2021 Encounter for supervision of normal first in third trimester 01/02/2021 01/11/2021 Low maternal weight gain, third trimester 202001/11/2021 GBS (group B Streptococcus c arrier), +RV culture, currently 01/02/2021 01/11/2021 Poor growth affecting management of mother in third trimester 12/25/2020 01/11/2021 AMA (advanced maternal age) primigravida 35+, second trimester 2020 01/11/2021 History of loop electrosurgi guerline excision procedure (LEEP) of cervix affecting in second trimester 2020 021 Somnolence, daytime 07/28/2017 04/20/2021 documented as of this encounter (statuses as of 11/28/2022) [facility] History of Past illness Narrative* Problem Noted Date Resolved Date Costochondritis, acute 04/17/2021 Edema of lower extremity 04/17/2021 021 NO SHOW 01/22/2021 04/17/2021 Encounter for induction of labor 01/08/2021 01/11/2021 Encounter for supervision of normal first in third trimester 01/02/2021 01/11/2021 Low maternal weight gain, third trimester 202001/11/2021 GBS (group B Streptococcus c arrier), +RV culture, currently 01/02/2021 01/11/2021 Poor growth affecting management of mother in third trimester 12/25/2020 01/11/2021 AMA (advanced maternal age) primigravida 35+, second trimester 2020 01/11/2021 History of loop electrosurgi guerline excision procedure (LEEP) of cervix affecting in second trimester 2020 021 Somnolence, daytime 07/28/2017 04/20/2021 documented as of this encounter (statuses as of 11/28/2022) [facility] History of Past illness Narrative* Problem Noted Date Resolved Date Costochondritis, acute 04/17/2021 Edema of lower extremity 04/17/2021 021 NO SHOW 01/22/2021 04/17/2021 Encounter for induction of labor 01/08/2021 01/11/2021 Encounter for supervision of normal first in third trimester 01/02/2021 01/11/2021 Low maternal weight gain, third trimester 202001/11/2021 GBS (group B Streptococcus c arrier), +RV culture, currently 01/02/2021 01/11/2021 Poor growth affecting management of mother in third trimester 12/25/2020 01/11/2021 AMA (advanced maternal age) primigravida 35+, second trimester 2020 01/11/2021 History of loop electrosurgi guerline excision procedure (LEEP) of cervix affecting in second trimester 2020 021 Somnolence, daytime 07/28/2017 04/20/2021 documented as of this encounter (statuses as of 11/28/2022) [facility] History of Past illness Narrative* Problem Noted Date Resolved Date Costochondritis, acute 04/17/2021 Edema of lower extremity 04/17/2021 021 NO SHOW 01/22/2021 04/17/2021 Encounter for induction of labor 01/08/2021 01/11/2021 Encounter for supervision of normal first in third trimester 01/02/2021 01/11/2021 Low maternal weight gain, third trimester 202001/11/2021 GBS (group B Streptococcus c arrier), +RV culture, currently 01/02/2021 01/11/2021 Poor growth affecting management of mother in third trimester 12/25/2020 01/11/2021 AMA (advanced maternal age) primigravida 35+, second trimester 2020 01/11/2021 History of loop electrosurgi guerline excision procedure (LEEP) of cervix affecting in second trimester 2020 021 Somnolence, daytime 07/28/2017 04/20/2021 documented as of this encounter (statuses as of 12/18/2022) [facility]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 Celina [address] [facility] [place] [address] Referral ID Status Reason Start Date Expiration Date Visits Re quested Visits Authorized [id number] Closed 11/28/2022 11/28/2023 1 Reason Comments Medication Preauthorization Modafinil Reason Comments Results Reason Comments Appointment Called patient to [facility] consult. Phone line was unavailable. Left a reminder message through howsimple. Reason Comments Results Cough Has been sick for ab out 5 days. 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 Referral ID Status Reason Start Date Expiration Date V isits Requested Visits Authorized [id number] Authorized 09/05/2021 11/09/2024 99 99 Care Teams (unrecognized sec tion and content) Cipher Expert Relationship Specialty Start Date End Date Janice Lane MD [address] [place] [id number] PCP - General Family Practice 12/09/19 Cipher Expert Relationship Specialty Start Date End Date Janice Lane MD [address] [place] [address] PCP - General Family Practice 12/09/19 Team Status: Inactive Member Role Status Dates Vishal Agarwal DO Emergency Provider Active Janice Lane MD Primary Care Provider Active Team Status: Active Member Role Status Dates Janice Lane MD Primary Care Provider Active Cipher Expert Relationship Specialty Start Date End Date Janice Lane MD [address] [place] [address] PCP - General Family Practice 12/09/19 Cipher Expert Relationship Specialty Start Date End Date Janice Lane MD [address] [place] [address] [place] [address] PCP - General Family Practice 12/09/19 Cipher Expert Relationship Specialty Start Date End Date Janice Lane MD [address] [place] [address], [place] [address] PCP - General Family Practice 12/09/19 Cipher Expert Relationship Specialty Start Date End Date Janice Lane MD [address] [place] [address] PCP - General Family Practice 12/09/19 Cipher Expert Relationship Specialty Start Date End Date Janice Lane MD [address] [place] [address], [place] [address] PCP - General Family Practice 12/09/19 Cipher Expert Relationship Specialty Start Date End Date Janice Lane MD [address] [place] [address], [place] [address] PCP - General Family Practice 12/09/19 Cipher Expert Relationship Specialty Start Date End Date Janice Lane MD [address] [place] [address], [place] [address] PCP - General Family Practice 12/09/19 Cipher Expert Relationship Specialty Start Date End Date Janice Lane MD [address] [place] [address], [place] [address] PCP - General Family Practice 12/09/19 Cipher Expert Relationship Specialty Start Date End Date Janice Lane MD [address] [place] [address], [place] [address] PCP - General Family Practice 12/09/19 Cipher Expert Relationship Specialty Start Date End Date Janice Lane MD [address] [place] [address] PCP - General Family Medicine 12/09/19 Cipher Expert Relationship Specialty Start Date End Date Janice Lane MD [address] [place] [address], [place] [address] PCP - General Family Medicine 12/09/19 Cipher Expert Relationship Specialty Start Date End Date Janice Lane MD [address] [place] [address], [place] [address] PCP - General Family Medicine 12/09/19 Cipher Expert Relationship Specialty Start Date End Date Janice Lane MD [address] [facility] [place] [address] PCP - General Family Medicine 12/09/19 Cipher Expert Relationship Specialty Start Date End Date Janice Lane MD [address] [place] [address], [place] [address] PCP - General Family Medicine 12/09/19 Cipher Expert Relationship Specialty Start Date End Date Janice Lane MD [address] [place] [address], [place] [address] PCP - General Family Medicine 12/09/19 Cipher Expert Relationship Specialty Start Date End Date Janice Lane MD [address] [place] [address], [place] [address] PCP - General Family Medicine 12/09/19 Team Status: Inactive Member Role Status Dates Janice Lane MD Primary Care Provider Active Vishal Agarwal DO Emergency Provider Active Cipher Expert Relationship Specialty Start Date End Date Janice Lane MD [address] [facility] [place] [address] PCP - General Family Medicine 12/09/19 Cipher Expert Relationship Specialty Start Date End Date Janice Lane MD [address] [place] [address], [place] [address] PCP - General Family Medicine 12/09/19 Cipher Expert Relationship Specialty Start Date End Date Janice Lane MD [address] [place] [address], [place] [address] PCP - General Family Medicine 12/09/19 Cipher Expert Relationship Specialty Start Date End Date Janice Lane MD [address] [facility] [place] [address] PCP - General Family Medicine 12/09/19 Cipher Expert Relationship Specialty Start Date End Date Janice Lane MD [address] [facility] [place] [address] PCP - General Family Medicine 12/09/19 Cipher Expert Relationship Specialty Start Date End Date Janice Lane MD [address] [facility] [place] [address] PCP - General Family Medicine 12/09/19 Cipher Expert Relationship Specialty Start Date End Date Janice Lane MD [address] [facility] [place] [address] PCP - General Family Medicine 12/09/19 Cipher Expert Relationship Specialty Start Date End Date Janice Lane MD [address] [place] [address] PCP - General Family Medicine 12/09/19 Cipher Expert Relationship Specialty Start Date End Date Janice Lane MD [address] [place] [address] PCP - General Family Medicine 12/09/19 Cipher Expert Relationship Specialty Start Date End Date Janice Lane MD [address] [facility] [place] [address] PCP - General Family Medicine 12/09/19 Cipher Expert Relationship Specialty Start Date End Date Janice Lane MD [address] [place] [address] PCP - General Family Medicine 12/09/19 Cipher Expert Relationship Specialty Start Date End Date Janice Lane MD [address] [facility] [place] [address] PCP - General Family Medicine 12/09/19 Cipher Expert Relationship Specialty Start Date End Date Janice Lane MD [address] [facility] [place] [address] PCP - General Family Medicine 12/09/19 Cipher Expert Relationship Specialty Start Date End Date Janice Lane MD [address] [facility] [place] [address] PCP - General Family Medicine 12/09/19 Cipher Expert Relationship Specialty Start Date End Date Janice Lane MD [address] [facility] [place] [address] PCP - General Family Medicine 12/09/19 Cipher Expert Relationship Specialty Start Date End Date Janice Lane MD [address] [facility] [place] [address] PCP - General Family Medicine 12/09/19 Cipher Expert Relationship Specialty Start Date End Date Janice Lane MD [address] [facility] [place] [address] PCP - General Family Medicine 12/09/19 Cipher Expert Relationship Specialty Start Date End Date Janice Lane MD [address] [facility] [place] [address] PCP - General Family Medicine 12/09/19 Goals (unrecognized section and content) Goals may be documented in a n alternate sectionGoals may be documented in an alternate section FOR RECORDS PERTAINING TO PATIENTS WHO ARE OR HAVE BEEN ENROLLED IN A CHEMICAL DEPENDENCY/SUBSTANCEABUSE PROGRAM, SOME INFORMATION MAY BE OMITTED. This clinical summary was aggregated from multiple sources. Caution should be exercised in using it in the provision of clinical care. This summary normalizes information from multiple sources, and as a consequence, information in this document may materially change the coding, format and clinical context of patient data. In addition, data may be omitted in some cases. CLINICAL DECISIONS SHOULD BE BASED ON THE PRIMARY CLINICAL RECORDS. [employer] [facility]. provides no warranty or guarantee of the accuracy or completeness of information in this document.
[2023-11-28 06:38] LABS: Basophils Absolute Auto 0.1 10^3/uL (0.0-0.1); Eosinophils Absolute Auto 0.1 10^3/uL (0.0-0.7); Eosinophils Percent Auto 0.9 % (0.9-7.0); Hematocrit 36.6 % (36.0-48.0); Hemoglobin 11.2 g/dL (12.0-16.0); Immature Granulocytes Abs Auto 0.02 10^3/uL (0.00-0.03); Immature Granulocytes Pct Auto 0.3 % (0.0-0.5); Lymphocytes Absolute Auto 3.3 10^3/uL (1.2-3.8); Lymphocytes Percent Auto 42.7 % (20.5-60.0); Mean Corpuscular HGB Conc 30.6 g/dL (29.9-35.2); Mean Corpuscular Hemoglobin 24.3 pg (26.7-34.0); Mean Corpuscular Volume 79.4 fL (81.0-99.0); Mean Platelet Volume 12.8 fL (9.5-13.5); Monocytes Absolute Auto 0.8 10^3/uL (0.3-0.8); Monocytes Percent Auto 10.7 % (1.7-12.0); Neutrophils Absolute Auto 3.5 10^3/uL (1.4-6.5); Neutrophils Percent Auto 44.4 % (43.0-75.0); Platelet Count 224 10^3/uL (150-450); Red Blood Count 4.61 10^6/uL (4.20-5.40); Red Cell Distribution Width 15.2 % (11.0-15.0); White Blood Count 7.8 10^3/uL (4.0-11.0)
[2023-11-28 06:58] LABS: HCG Quantitative <1 mIU/mL
[2023-11-28] MEDS: LACTATED RINGER'S SOLUTION 1,000 ML 50 ML IV ×2 (06:59→09:56)
--- NOTE | 2023-11-28 08:41 | PM.ONB ---
Brief Operative Note Date of procedure: 11/28/23 Pre-op diagnosis: menorrhagia Post-op diagnosis: same as pre-op Procedure: NAME OF PROCEDURE: [ D&c hysteroscopy] findings-normal appearing endometrium, no gross evidence of polyps fibroids or malignancy PROCEDURE: The patient was taken back to the Operating Room where she was prepped and draped in normal sterile fashion after being placed under general anesthesia without difficulty. She was also placed in the dorsal lithotomy position. A weighted speculum was placed in the patient?s vagina. The anterior lip of the cervix was identified and grasped with a single tooth tenaculum. The patient?s uterus was then sounded roughly to [? 8] cm. The patient was then gently dilated using Hegar dilators. The hysteroscope was passed through the patient?s cervix into the uterus. Both ostia were identified. normal appearing endometrium. No gross evidence of malignancy, no gross evidence of polyps or fibroids. . At that point, gentle curettage was performed until a gritty texture was noted. The endometrial curettings were sent out to pathology. The single tooth tenaculum was then removed from the patient's anterior lip of the cervix where excellent hemostasis was noted. All instruments were removed from the patient?s vagina. The patient tolerated the procedure well. Sponge, lap and needle counts were correct times two. The patient was taken to the Recovery Room in stable condition.Room in stable condition. Anesthesia: MAC Surgeon: Clarke Hu Estimated blood loss (mL): 5 Pathology: other (endometrial currettings) Condition: stable Disposition: PACU Urinary Catheter Management Urinary Catheter Management Straight: Cath placed during this visit: no
--- NOTE | 2023-11-28 10:05 | PC.NURSE ---
11/28/23 (0954) Patient unable to void. New bag of IV hung.
== END 2023-11-28 10:20 | disposition home or self-care (01) ==
PROVIDERS: Visit Provider Obstetrics & Gynecology
PROC: (CPT 952; principal; 2023-11-28 07:30)
DX: N92.0 Excessive and frequent menstruation with regular cycle (principal); R93.89 Abnormal findings on diagnostic imaging of other specified body structures; D64.9 Anemia, unspecified; G35 Multiple sclerosis
CPT/HCPCS: 58558; 36415; 84702; 85025; 88305; 99999; J1094; J2704

== ENCOUNTER 2024-02-23 21:03 | Outpatient (REF) | payer MEDICARE, MEDICAID, SELFPAY ==
--- OUTSIDE RECORDS SUMMARY | 2024-02-23 21:12 | XMS_ITS | CCD ---
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 Christiano 02-03-2024 [facility] ---- SMOOTH MARTINEZ ([id number]) 1985 F Date Time Provider Department 02/03/24 MIRNA BAXTER During your visit today, we recorded the following information about you: Clarice ZepedaALEXYS 02/03/2024 1:33 PM Signed Chris Call Name of caller : Iris Edge Relationship to patient: [facility] Return call phone number : [phone] Reason for call : Other : Brief description of concern : Has follow up questions Mirna Baxter LSW 02/04/2024 9:37 AM Signed Returned CM Iris's call. Iris stated pt was approved for a [facility] aide one day a week for 45 min to assist with additonal care needs. Iris is requesting an order from the doctor to start care. I will e-mail Iris the order when completed. DEZ Archer, [facility] Social Work Allergies As of Date: 02/03/2024 Noted Allergy Reaction GLUTEN 03/19/2019 14 - [...] Vomiting More constipated More constipated Date Reviewed: 01/19/2024 Reviewed by: Kaitlyn Forbes, power hammer operator - Fully Assessed Reason for Visit: Patient Question [8127] Prescriptions as of 02/04/2024 - Norethindrone, Contraceptive, 0.35 mg tablet Take 0.35 mg by mouth. - vitamin B complex with C-FA-CU-ZN renal vitamins (DIATX ZN) 5-1.5-25 mg tab Take by mouth every 24 hours. - FERROUS SULFATE ORAL Take by mouth every 24 hours. - multivitamin with minerals (MULTIPLE VITAMIN-MINERALS) tablet Take 1 tablet by mouth every 24 hours. - dalfampridine ER (AMPYRA) 10 mg tablet Take 1 tablet by mouth two times a day. - magnesium oxide (MAG-OX) 400 mg (241.3 mg magnesium) tablet Take 1 tablet by mouth daily at bedtime. - metroNIDAZOLE (FLAGYL) 500 mg tablet Take 500 mg by mouth three times a day. - Amoxicillin 500 mg tablet Take 1,000 mg by mouth two times a day. - Norethindrone, Contraceptive, (JENCYCLA) 0.35 mg tablet Take 1 tablet by mouth every morning. - ergocalciferol 50,000 unit capsule (VITAMIN D2, DRISDOL) Take 1 capsule by mouth one time a week. - ketoconazole (NIZORAL) 2 % cream Apply [...] (FLONASE) 50 mcg/actuation nasal spray Use 1 [place] in each nostril once daily. Problem List As Of Date 02/03/2024 Noted Resolved Multiple sclerosis (HCC) [G35] 11/15/2019 [...] deficit [R41.841] 07/22/2022 07/17/2023 Encounter Status:Closed by MIRNA BAXTER on 02/04/24 Normal [facility] MR Thoracic spine WO and W c ontrast Joe 01-19-2024 [facility] MRI THORACIC SPINE WO/W IVCO Non 01-19-2024 MRI THORACIC SPINE WO/W IVCON * * *Final Report* * * DATE OF EXAM: Jan 19 2024 3:15PM BRM [id number] - MRI THORACIC SPINE WO/W IVCON / PROCEDURE REASON: Multiple sclerosis (HCC) * * * * Physician Interpretation * * * * EXAMINATION: MRI THORACIC SPINE WO/W IVCON CLINICAL HISTORY: Multiple sclerosis (HCC) TECHNIQUE: Routine thoracic spine MR protocol. MQ: [id number] COMPARISON: MRI thoracic spine 07/23/2022 RESULT: Counting reference: Craniocervical junction. Localizer images: No unexpected lesions are identified. Alignment: Alignment is anatomic. Cord: No substantial interval change in size, number, distribution of innumerable T2 STIR hyperintense intramedullary lesions throughout the entire thoracic spinal cord with no appreciable postcontrast enhancement identified. Bone marrow signal/fracture: No evidence of pathologic marrow infiltration. No evidence of prior fracture. Thoracic paraspinal soft tissues: The paraspinal soft tissues are within normal limits. Canal and foramina: No substantial canal or foraminal stenosis. IMPRESSION: No substantial interval change in size, number, distribution of innumerable T2 STIR hyperintense intramedullary lesions throughout the entire thoracic spinal cord compatible with sequelae of demyelinating disease. No new or enhancing spinal cord lesions are identified to suggest active or progressive disease. Ammunition And Explosives Handler: ANGEL Transcribe Date/Time: Jan 19 2024 3:31P Dictated by : LOVE WHARTON MD This examination was interpreted and the report reviewed and electronically signed by: LOVE WHARTON MD on Jan 19 2024 3:43PM EST [id number] Normal [facility] SMOOTH MARTINEZ ([id number]) 1985 F Date Time Provider Department 01/05/24 MIRNA BAXTER During your visit today, we recorded the following information about you: Nadine James 01/05/2024 9:56 AM Signed Wasnt able to LVM patient appt on 01/06/24 was reschedule due to being schedule with the wrong provider. Allergies As of Date: 01/05/2024 Noted Allergy Reaction GLUTEN 03/19/2019 14 - [...] Vomiting More constipated More constipated Date Reviewed: 12/25/2023 Reviewed by: Tor Hernandez APRN.HOST/HOSTESS - Fully Assessed Reason for Visit: Appointment [186] Cmt: Wasnt able to LVM patient appt on 01/06/24 was reschedule due to being schedule with the wrong provider. Prescriptions as of 01/05/2024 - Norethindrone, Contraceptive, 0.35 mg tablet Take 0.35 mg by mouth. - vitamin B complex with C-FA-CU-ZN renal vitamins (DIATX ZN) 5-1.5-25 mg tab Take by mouth every 24 hours. - FERROUS SULFATE ORAL Take by mouth every 24 hours. - multivitamin with minerals (MULTIPLE VITAMIN-MINERALS) tablet Take 1 tablet by mouth every 24 hours. - dalfampridine ER (AMPYRA) 10 mg tablet Take 1 tablet by mouth two times a day. - magnesium oxide (MAG-OX) 400 mg (241.3 mg magnesium) tablet Take 1 tablet by mouth daily at bedtime. - metroNIDAZOLE (FLAGYL) 500 mg tablet Take 500 mg by mouth three times a day. - Amoxicillin 500 mg tablet Take 1,000 mg by mouth two times a day. - Norethindrone, Contraceptive, (JENCYCLA) 0.35 mg tablet Take 1 tablet by mouth every morning. - ergocalciferol 50,000 unit capsule (VITAMIN D2, DRISDOL) Take 1 capsule by mouth one time a week. - ketoconazole (NIZORAL) 2 % cream Apply [...] (FLONASE) 50 mcg/actuation nasal spray Use 1 [place] in each nostril once daily. Problem List As Of Date 01/05/2024 Noted Resolved Multiple sclerosis (HCC) [G35] 11/15/2019 [...] deficit [R41.841] 07/22/2022 07/17/2023 Encounter Status:Closed by NADINE JAMES on 01/05/24 [facility] CNOVon 12-25-2023 CNOV Office Visit (NEMSLR) ---- SMOOTH MARTINEZ ([id number]) 1985 F Date Time Provider Department 12/25/23 11:00 AM TOR HERNANDEZ NEMIESHA During your visit today, we recorded the following information about you: Pulse Blood pressure Weight Last Period 87/minute 95/67 56.8 kg 12/21/23 Tor Hernandez APRN.HOST/HOSTESS 12/25/2023 12:09 PM [facility] [place], operated by [facility] FOLLOWUP/ESTABLISHE D PATIENT VISIT PRINCIPAL NEUROLOGIC DIAGNOSIS: Multiple Sclerosis DISEASE SUMMARY Date of onset: 03/2007 Date of diagnosis of MS: 03/2007 Disease course at onset: Relapsing-Remitting Current disease course: Progressive without relapses Previous disease therapies: - Betaseron [id number] - Copaxone 6471-5823 - Tysabri 2009-Summer 2019 (stopped due to planned ) - Copaxone 5874-7698 (during ) Current disease therapy: Ocrevus (since 02/28/21, most recent 09/25/23) Most recent MRI brain: 01/02/23 (stable) Most recent MRI cervical spine: 01/02/23 (stable) Most recent MRI thoracic spine: 07/23/2022 CSF: NA JCV: 02/14/2021 0.28, stratify negative Brief Disease History: - 2006 lower extremity numbness evolving over 3 weeks following occipital relase - 6413-7397 recurrent OS ON - [id number] several relapses including L numbness, weakness, constipation, urinary urgency - 2019 R weakness and numbness needing a wheelchair, hospitalized at [facility] (off Tysabri x3 months due to planning ). Also had OD vision loss at this time. At this time also notes substantial mold exposure due to it being all over her apt (has since moved). CHIEF COMPLAINT: Follow-up on MS disease modifying therapy Usual treating team: Esther/David The patient is accompanied by her daughter. The patient was last seen 07/23/23, currently taking Ocrevus. Since the patient's last visit the patient reports overall feeling worse. Issues with current therapy: Tolerating medication without side effects. INTERVAL HISTORY: Not feeling any better but not feeling any worse Has a home health aide that comes for 8 hours a week - has her assistance through the disability board Helpful but she needs more assistance Previously we talked about home care PT, OT, and speech but she has been unable to pursue this due to a lot going on, insurance, etc Would significantly benefit from 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, ot, speech, sw, and city editor as she is home bound, 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 Her income is significantly limited and she is unable to provide care for both herself and her family due to her fatigue, muscle weakness, dexterity, and paresthesias Had a DANDC 11/28 due to heavy bleeding x 2 months, found a polyp/mass which was benign Was prescribed post op antibiotics At her follow up prescribed another course of antibiotics as they seemed to clear her chronic BV Working closely with OB for further evaluation Current ear and sinus infection which was treated with abx recently Otherwise denies recent illness or infection Legs continue to be very weak Is only taking tizanidine once a day if that, Having rare occasional shaniqua horses to legs Is not taking Ampyra anymore Denies falls Did meet with sleep medicine 08/2023, was previously prescribed trazodone which does not really help Is not sleeping well which is resulting in increased day time fatigue, gets easily fatigued Neuro-QoL Functions (higher=better functioning) Flowsheet Row Office Visit from 07/23/2023 in [facility] Office Visit from 01/17/2023 in [facility] Appointment from 01/15/2023 in [facility] Upper Extremity Domain T Score 28.29 31.35 [...] Flowsheet Row Office Visit from 07/23/2023 in [facility] Office Visit from 01/17/2023 in [facility] Appointment from 01/15/2023 in [facility] Sleep Domain T Score 69.2 68.89 61 [...] Edema of lower extremity (04/17/2021), Multiple sclerosis ([facility]), Seizure ([facility]), and Thyroid disease. She has no past medical history of Asthma, Blood dyscrasia, Breast disorder, Chlamydia, Chronic kidney disease, Complication of anesthesia, Coronary artery disease, Diabetes ([facility]), Diabetes, gestational, Gonorrhea, Herpes simplex virus (HSV) infection, History of pre-eclampsia in prior , currently , HIV infection ([facility]), Hypertension, Infertility, female, L (more content not included)... Normal [facility] Christiano 12-25-2023 CNPN Telephone (HCSIND) ---- MARTINEZSMOOTH GREWAL ([id number]) 1985 F Date Time Provider Department 12/25/23 TIKI ELLIOTT [facility] During your visit today, we recorded the following information about you: Tiki Elliott 12/25/2023 2:08 PM Addendum Spoke with Elizabeth from [facility] and accepted the patient for Home Care. Thank you for the referral of your patient to [facility]. At this time, we are unable to accommodate your patient's needs in a safe and timely fashion. In order to help your patient receive quality home care, we will assist in finding alternate staffing. I have forwarded the referral to [facility], and it is pending. I will notify you when we have an accepting agency. Thank you. Thank you for the referral of your patient to [facility] [place]. At this time, we are unable to accommodate your patient's needs in a safe and timely fashion. In order to help your patient receive quality home care, we will assist in finding alternate staffing. I have forwarded the referral to [facility], and it is declined. I will notify you when we have an accepting agency. Thank you. Thank you for the referral of your patient to [facility]. At this time, we are unable to accommodate your patient's needs in a safe and timely fashion. In order to help your patient receive quality home care, we will assist in finding alternate staffing. I have forwarded the referral to [facility], and it is declined. I will notify you when we have an accepting agency. Thank you. Allergies As of Date: 12/25/2023 Noted Allergy Reaction GLUTEN 03/19/2019 14 - [...] Vomiting More constipated More constipated Date Reviewed: 12/25/2023 Reviewed by: Tor Hernandez APRN.HOST/HOSTESS - Fully Assessed Reason for Visit: Home Care [4073] Cmt: Alternate Agency Prescriptions as of 12/25/2023 - cefdinir (OMNICEF) 300 mg capsule Take 300 mg by mouth. - Norethindrone, Contraceptive, 0.35 mg tablet Take 0.35 mg by mouth. - vitamin B complex with C-FA-CU-ZN renal vitamins (DIATX ZN) 5-1.5-25 mg tab Take by mouth every 24 hours. - FERROUS SULFATE ORAL Take by mouth every 24 hours. - multivitamin with minerals (MULTIPLE VITAMIN-MINERALS) tablet Take 1 tablet by mouth every 24 hours. - dalfampridine ER (AMPYRA) 10 mg tablet Take 1 tablet by mouth two times a day. - magnesium oxide (MAG-OX) 400 mg (241.3 mg magnesium) tablet Take 1 tablet by mouth daily at bedtime. - iv contrast (will be provided with radiology [...] in the MR contrast administration guidelines link. - metroNIDAZOLE (FLAGYL) 500 mg tablet Take 500 mg by mouth three times a day. - Amoxicillin 500 mg tablet Take 1,000 mg by mouth two times a day. - Norethindrone, Contraceptive, (JENCYCLA) 0.35 mg tablet Take 1 tablet by mouth every morning. - ergocalciferol 50,000 unit capsule (VITAMIN D2, DRISDOL) Take 1 capsule by mouth one time a week. - ketoconazole (NIZORAL) 2 % cream Apply [...] (FLONASE) 50 mcg/actuation nasal spray Use 1 [place] in each nostril once daily. Problem List As Of Date 12/25/2023 Noted Resolved Multiple sclerosis (HCC) [G35] 11/15/2019 Chronic insomnia [F51.04] 01/04/2020 AMA (advanced maternal age) primigravida 35+, s*2020 01/11/2021 History of loop electrosurgical excision proced*2020 01/11/2021 Poor growth affecting (more content not included)... Normal [facility] HCG ( test) Ql (U)o n 12-23-2023 Interpretation and review of laboratory results Normal [facility] Preg Test, Ur Negative [facility] Laboratory - Microbiology an d Antimicrobial susceptibilityon 12-23-2023 SARS-CoV-2 (COVID-19) RNA DEIRDRE+probe Ql (Unsp spec) Negative [facility] No Panel Informationon 12-23 FLU A Negative [facility] FLU B Negative [facility] Interpretation and review of laboratory results Normal [facility] Toño 11-28-2023 L Specimen: [id number] Received: 11/28/23 Status: ALLISON See Num: [id number] Spec Type: Surgical Subm Dr: Clarke Hu Tissues: A Endometrium - Curettings (EMC) Procedures: HE/2, Gross/Micro L4 Age/ Patient Sex Location Account Attending Physician Smooth Martinez Beto 38/F LABELL [id number] Clarke Hu SPEC NUM: [id number] RECD: 11/28/23 STATUS: ALLISON SEE NUM: [id number] ALLAN: 11/28/[address]: Clarke Hu ENTERED: 11/28/23-1309 [facility] DR: Sherry,Lab SPEC TYPE: Surgical DEPT: IDRIS NICKERSON ORDERED: HE/2, Gross/Micro L4 ORDERED: HE/2, Gross/Micro L4 Pathological Diagnosis Endometrium, Curettage: Disordered Proliferative Endometrium. Clinical Information Thickened endometrium Gross Description Received in formalin labeled with the patient's name, date of and endometrial curettings is a 3 x 2 x 0.3 cm aggregate of red-brown and pink-iverson soft tissue fragments. Entirely submitted in one cassette labeled A1. CPT Codes 83425 Specimen: [id number] Received: 11/28/23 Status: ALLISON See Num: [id number] Spec Type: Surgical Subm Dr: Clarke Hu Tissues: A Endometrium - Curettings (EMC) Procedures: HE/2, Gross/Micro L4 Patient: Smooth Martinez [id number] (Continued) Signed (signatur e on file) Edu Watkins MD 12/01/23 2159 [facility] CNSWon 10-13-2023 CNSW Social Work (HEMASA) ---- SMOOTH MARTINEZ F ([id number]) 1985 F Date Time Provider Department 10/13/23 [...] constipated Date Reviewed: 09/25/2023 Reviewed by: Marci Tracy, FREYA - Fully Assessed Prescriptions as of 10/13/2023 [...] (FLONASE) 50 mcg/actuation nasal spray Use 1 [place] in each nostril once daily. Problem List [...] Status:Closed by ALEXANDRA HOGAN on 10/13/23 Normal [facility] CBC W Auto Differential pane l (Bld)on 09-25-2023 Basophils (Bld) [#/Vol] 0.03 10*3/uL Normal <0.11 [facility] Comment on above: Order Comment: Speci men Type: BLOOD SPECIMEN Ordering Facility: [facility] Address: [address] [place] [address] Performed By: #### 2 464-4 #### [facility] CLIA [id number] [address] [place] [address] [place] Basophils/100 WBC (Bld) 0.8 % Normal C [facility] Comment on above: Order Comment: Speci men Type: BLOOD SPECIMEN Ordering Facility: [facility] Address: [address] [place] [address] Performed By: #### 2 276-4 #### [facility] CLIA [id number] [address] [place] [address] [place] Differential cell count method Nom (Bld) Auto Normal [facility] Comment on above: Order Comment: Speci men Type: BLOOD SPECIMEN Ordering Facility: [facility] Address: [address] [place] [address] Performed By: #### 2 276-4 #### [facility] CLIA [id number] [address] [place] [address] [place] Eosinophils (Bld) [#/Vol] 0.07 10*3/uL Normal <0.46 [facility] Comment on above: Order Comment: Speci men Type: BLOOD SPECIMEN Ordering Facility: [facility] Address: [address] [place] [address] Performed By: #### 2 276-4 #### [facility] CLIA [id number] [address] [place] [address] [place] Eosinophils/100 WBC (Bld) 1.8 % Normal [facility] Comment on above: Order Comment: Speci men Type: BLOOD SPECIMEN Ordering Facility: [facility] Address: [address] [place] [address] Performed By: #### 2 276-4 #### [facility] CLIA [id number] [address] [place] [address] [place] Erythrocyte distribution width (RBC) [Ratio] 17.1 % High 11.5-15.0 [facility] Comment on above: Order Comment: Speci men Type: BLOOD SPECIMEN Ordering Facility: [facility] Address: [address] [place] [address] Performed By: #### 2 276-4 #### [facility] CLIA [id number] [address] [place] [address] [place] Hematocrit (Bld) [Volume fraction] 41.0 % Normal 36.0-46.0 [facility] Comment on above: Order Comment: Speci men Type: BLOOD SPECIMEN Ordering Facility: [facility] Address: [address] [place] [address] Performed By: #### 2 276-4 #### [facility] CLIA [id number] [address] [place] [address] [place] Hemoglobin (Bld) [Mass/Vol] 12.5 g/dL Normal 11.5-15.5 [facility] Comment on above: Order Comment: Speci men Type: BLOOD SPECIMEN Ordering Facility: [facility] Address: [address] [place] [address] Performed By: #### 2 276-4 #### [facility] CLIA [id number] [address] [place] [address] [place] Immature granulocytes (Bld) [#/Vol] 10*3/uL Normal <0.10 [facility] Comment on above: Order Comment: Speci men Type: BLOOD SPECIMEN Ordering Facility: [facility] Address: [address] [place] [address] Performed By: #### 2 276-4 #### [facility] CLIA [id number] [address] [place] [address] [place] Immature granulocytes/100 WBC (Bld) 0.0 % Normal [facility] Comment on above: Order Comment: Speci men Type: BLOOD SPECIMEN Ordering Facility: [facility] Address: [address] [place] [address] Performed By: #### 2 276-4 #### [facility] CLIA [id number] [address] [place] [address] [place] Lymphocytes (Bld) [#/Vol] 2.63 10*3/uL Normal 1.00-4.00 [facility] Comment on above: Order Comment: Speci men Type: BLOOD SPECIMEN Ordering Facility: [facility] Address: [address] [place] [address] Performed By: #### 2 276-4 #### [facility] CLIA [id number] [address] [place] [address] [place] Lymphocytes/100 WBC (Bld) 66.4 % Normal [facility] Comment on above: Order Comment: Speci men Type: BLOOD SPECIMEN Ordering Facility: [facility] Address: [address] [place] [address] Performed By: #### 2 276-4 #### [facility] CLIA [id number] [address] [place] [address] [place] MCH (RBC) [Entitic mass] 23.7 pg Low 26.0-34.0 [facility] Comment on above: Order Comment: Speci men Type: BLOOD SPECIMEN Ordering Facility: [facility] Address: [address] [place] [address] Performed By: #### 2 276-4 #### [facility] CLIA [id number] [address] [place] [address] [place] MCHC (RBC) [Mass/Vol] 30.5 g/dL Normal 30.5-36.0 [facility] Comment on above: Order Comment: Speci men Type: BLOOD SPECIMEN Ordering Facility: [facility] Address: [address] [place] [address] Performed By: #### 2 276-4 #### [facility] CLIA [id number] [address] [place] [address] [place] MCV (RBC) [Entitic vol] 77.7 fL Low 80.0-100.0 C [facility] Comment on above: Order Comment: Speci men Type: BLOOD SPECIMEN Ordering Facility: [facility] Address: [address] [place] [address] Performed By: #### 2 276-4 #### [facility] CLIA [id number] [address] [place] [address] [place] Monocytes (Bld) [#/Vol] 0.51 10*3/uL Normal <0.87 [facility] Comment on above: Order Comment: Speci men Type: BLOOD SPECIMEN Ordering Facility: [facility] Address: [address] [place] [address] Performed By: #### 2 276-4 #### [facility] CLIA [id number] [address] [place] [address] [place] Monocytes/100 WBC (Bld) 12.9 % Normal C [facility] Comment on above: Order Comment: Speci men Type: BLOOD SPECIMEN Ordering Facility: [facility] Address: [address] [place] [address] Performed By: #### 2 276-4 #### [facility] CLIA [id number] [address] [place] [address] [place] Neutrophils (Bld) [#/Vol] 0.72 10*3/uL Low 1.45-7.50 [facility] Comment on above: Order Comment: Speci men Type: BLOOD SPECIMEN Ordering Facility: [facility] Address: [address] [place] [address] Performed By: #### 2 276-4 #### [facility] CLIA [id number] [address] [place] [address] [place] Neutrophils/100 WBC (Bld) 18.1 % Normal [facility] Comment on above: Order Comment: Speci men Type: BLOOD SPECIMEN Ordering Facility: [facility] Address: [address] [place] [address] Performed By: #### 2 276-4 #### [facility] CLIA [id number] [address] [place] [address] [place] Nucleated RBC (Bld) [#/Vol] 10*3/uL Normal <0.01 [facility] Comment on above: Order Comment: Speci men Type: BLOOD SPECIMEN [facility] Address: [address] [place] [address] Performed By: #### 2 276-4 #### [facility] CLIA [id number] [facility] [place] [address] [place] Nucleated RBC/100 WBC (Bld) [Ratio] 0.0 /100 WBC Normal [facility] Comment on above: Order Comment: Speci men Type: BLOOD SPECIMEN [facility] Address: [address] [place] [address] Performed By: #### 2 276-4 #### [facility] CLIA [id number] [address] [place] [address] [place] Platelet mean volume (Bld) [Entitic vol] Normal [facility] Comment on above: Order Comment: Speci men Type: BLOOD SPECIMEN [facility] Address: [address] [place] [address] Result Comment: Unab le to Report. Performed By: #### 2 276-4 #### [facility] CLIA [id number] [address] [place] [address] [place] Platelets (Bld) [#/Vol] 179 10*3/uL Normal 150-400 [facility] Comment on above: Order Comment: Speci men Type: BLOOD SPECIMEN [facility] Address: [address] [place] [address] Result Comment: Resu lts checked and verified.No clot detected. Performed By: #### 2 276-4 #### [facility] CLIA [id number] [facility] [place] [address] [place] RBC (Bld) [#/Vol] 5.28 10*6/uL High 3.90-5.20 [facility] Comment on above: Order Comment: Speci men Type: BLOOD SPECIMEN [facility] Address: [address] [place] [address] Performed By: #### 2 276-4 #### [facility] CLIA [id number] [address] [place] [address] [place] WBC (Bld) [#/Vol] 3.96 10*3/uL Normal 3.70-11.00 [facility] Comment on above: Order Comment: Speci men Type: BLOOD SPECIMEN [facility] Address: [address] [place] [address] Performed By: #### 2 276-4 #### [facility] CLIA [id number] [address] [place] [address] [place] Basophils (Bld) [#/Vol] 0.03 10*3/uL <0.11 k/uL [facility] Basophils/100 WBC (Bld) 0.8 % [facility] Differential cell count method Nom (Bld) Auto [facility] Eosinophils (Bld) [#/Vol] 0.07 10*3/uL <0.46 k/uL [facility] Eosinophils/100 WBC (Bld) 1.8 % [facility] Erythrocyte distribution width (RBC) [Ratio] 17.1 % High 11.5 - 15.0 % [facility] Hematocrit (Bld) [Volume fraction] 41.0 % 36.0 - 46.0 % [facility] Hemoglobin (Bld) [Mass/Vol] 12.5 g/dL 11.5 - 15.5 g/dL [facility] Immature granulocytes (Bld) [#/Vol] <0.10 k/uL [facility] Immature granulocytes/100 WBC (Bld) 0.0 % [facility] Lymphocytes (Bld) [#/Vol] 2.63 10*3/uL 1.00 - 4.00 k/uL [facility] Lymphocytes/100 WBC (Bld) 66.4 % [facility] MCH (RBC) [Entitic mass] 23.7 pg Low 26.0 - 34.0 pg [facility] MCHC (RBC) [Mass/Vol] 30.5 g/dL 30.5 - 36.0 g/dL [facility] MCV (RBC) [Entitic vol] 77.7 fL Low 80.0 - 100.0 fL [facility] Monocytes (Bld) [#/Vol] 0.51 10*3/uL <0.87 k/uL [facility] Monocytes/100 WBC (Bld) 12.9 % [facility] Neutrophils (Bld) [#/Vol] 0.72 10*3/uL Low 1.45 - 7.50 k/uL [facility] Neutrophils/100 WBC (Bld) 18.1 % [facility] Nucleated RBC (Bld) [#/Vol] <0.01 k/uL [facility] Nucleated RBC/100 WBC (Bld) [Ratio] 0.0 /100 WBC [facility] Platelet mean volume (Bld) [Entitic vol] [facility] Platelets (Bld) [#/Vol] 179 10*3/uL 150 - 400 k /uL [facility] RBC (Bld) [#/Vol] 5.28 10*6/uL High 3.90 - 5.2 0 m/uL [facility] WBC (Bld) [#/Vol] 3.96 10*3/uL 3.70 - 11. 00 k/uL [facility] CD19 ABSOLUTE COUNTon 2022 CD3-CD19+ cells (Bld) [#/Vol] 0 cells/uL Low 75-660 [facility] Comment on above: Order Comment: Speci men Type: BLOOD SPECIMENOrdering Facility: [facility] Address: [address] [place] [address] Performed By: #### A BS19 ####[facility] [id number] [place] [address] [place] CD3-CD19+ cells/100 cells (Bld) 0 % Low 5-22 [facility] Comment on above: Order Comment: Speci men Type: BLOOD SPECIMENOrdering Facility: [facility] Address: [address] [place] [address] Performed By: #### A BS19 ####[facility] [id number] [place] [address] [place] Lymphocytes/100 WBC FC (Bld) Normal [facility] Comment on above: Order Comment: Speci men Type: BLOOD SPECIMENOrdering Facility: [facility] Address: [address] [place] [address] Performed By: #### A BS19 ####[facility] [id number] [id number] [place] CNPLilli 09-25-2023 CNPN Telephone ([facility]) ---- SMOOTH MARTINEZ ([id number]) 1985 F Date Time Provider Department 09/25/23 KATHERYN ESPINO During your visit today, we recorded the following information about you: Katheryn Espino RN 09/25/2023 10:40 AM Signed Smooth is in our [place] [facility] for her Ocrevus today. I just [...] [D70.2] Order(s):CBC + DIFF [[id number]] Order #: [id number] FUTURE Prescriptions as of 09/29/2023 - metroNIDAZOLE [...] (FLONASE) 50 mcg/actuation nasal spray Use 1 [place] in each nostril once daily. Problem List [...] Status:Closed by KATHERYN ESPINO on 09/29/23 Normal [facility] metabolic 2000 panelon 09-25-2023 Albumin [Mass/Vol] 4.5 g/dL Normal 3.9-4.9 [facility] Comment on above: Order Comment: Speci men Type: BLOOD SPECIMEN [facility] Address: [address] [place] [address] Performed By: #### 2 4323-8 #### [facility] CLIA [id number] [address] [place] [address] ALP [Catalytic activity/Vol] 58 U/L Normal 34-123 [facility] Comment on above: Order Comment: Speci men Type: BLOOD SPECIMEN [facility] Address: [address] [place] [address] Performed By: #### 2 4323-8 #### [facility] CLIA [id number] [address] [place] [address] ALT [Catalytic activity/Vol] 11 U/L Normal 7-38 [facility] Comment on above: Order Comment: Speci men Type: BLOOD SPECIMEN [facility] Address: [address] [place] [address] Performed By: #### 2 4323-8 #### [facility] CLIA [id number] [address] [place] [address] Anion gap [Moles/Vol] 9 mmol/L Normal 9-18 [facility] Comment on above: Order Comment: Speci men Type: BLOOD SPECIMEN [facility] Address: [address] [place] [address] Performed By: #### 2 4323-8 #### [facility] CLIA [id number] [address] [place] [address] AST [Catalytic activity/Vol] 17 U/L Normal 13-35 [facility] Comment on above: Order Comment: Speci men Type: BLOOD SPECIMEN [facility] Address: [address] [place] [address] Performed By: #### 2 4323-8 #### [facility] CLIA [id number] [address] [place] [address] Bilirubin [Mass/Vol] 0.5 mg/dL Normal 0.2-1.3 [facility] Comment on above: Order Comment: Speci men Type: BLOOD SPECIMEN [facility] Address: [address] [place] [address] Performed By: #### 2 4323-8 #### [facility] CLIA [id number] [address] [place] [address] Calcium [Mass/Vol] 9.5 mg/dL Normal 8.5-10.2 [facility] Comment on above: Order Comment: Speci men Type: BLOOD SPECIMEN [facility] Address: [address] [place] [address] Performed By: #### 2 4323-8 #### [facility] CLIA [id number] [address] [place] [address]486 Chloride [Moles/Vol] 106 mmol/L High 97-105 [facility] Comment on above: Order Comment: Speci men Type: BLOOD SPECIMEN [facility] Address: [address] [place] [address] Performed By: #### 2 4323-8 #### [facility] CLIA [id number] [address] [place] [address] 44368 CO2 [Moles/Vol] 26 mmol/L Normal 22-30 [facility] Comment on above: Order Comment: Speci men Type: BLOOD SPECIMEN [facility] Address: [address] [place] [address] Performed By: #### 2 4323-8 #### [facility] CLIA [id number] [address] [place] [address]376 Creatinine [Mass/Vol] 0.95 mg/dL Normal 0.58-0.96 [facility] Comment on above: Order Comment: Speci men Type: BLOOD SPECIMEN [facility] Address: [address] [place] [id number] Performed By: #### 2 4323-8 #### [facility] CLIA [id number] [address] [place] [address]273 Creatinine and Glomerular filtration rate.predicted panel (S/P/Bld) 79 mL/min/1.73m??? Normal >=60 [facility] Comment on above: Order Comment: Rylee chauhan Type: BLOOD SPECIMEN [facility] Address: [address] [place] [address] Result Comment: Priscila mated Glomerular Filtration Rate [...] actual GFR. Performed By: #### 2 4323-8 #### [facility] CLIA [id number] [address] [place] [address]95 Glucose [Mass/Vol] 89 mg/dL Normal 74-99 [facility] Comment on above: Order Comment: Rylee chauhan Type: BLOOD SPECIMEN [facility] Address: [address] [place] [address] Result Comment: The [place] Diabetes Association (ADA) provides guidance for cutoff [...] Standards of Medical Care in Diabetes 2016, [place] [employer]. Diabetes Care. 2016.39(Suppl 1). Performed By: #### 2 4323-8 #### [facility] CLIA [id number] [address] [place] [address]94 Potassium [Moles/Vol] 3.6 mmol/L Low 3.7-5.1 [facility] Comment on above: Order Comment: Speci men Type: BLOOD SPECIMEN [facility] Address: [address] [place] [address] Performed By: #### 2 4323-8 #### [facility] CLIA [id number] [address] [place] [address] Protein [Mass/Vol] 7.4 g/dL Normal 6.3-8.0 [facility] Comment on above: Order Comment: Speci men Type: BLOOD SPECIMEN [facility] Address: [address] [place] [id number] Performed By: #### 2 4323-8 #### [facility] CLIA [id number] [address] [place] [address] Sodium [Moles/Vol] 141 mmol/L Normal 136-144 [facility] Comment on above: Order Comment: Speci men Type: BLOOD SPECIMEN [facility] Address: [address] [place] [address] Performed By: #### 2 4323-8 #### [facility] CLIA [id number] [address] [place] [address] Urea nitrogen [Mass/Vol] 14 mg/dL Normal 7-21 [facility] Comment on above: Order Comment: Speci men Type: BLOOD SPECIMEN [facility] Address: [address] [place] [address] Performed By: #### 2 4323-8 #### [facility] CLIA [id number] [address] [place] [address] Albumin [Mass/Vol] 4.5 g/dL 3.9 - 4.9 g/dL [facility] ALP [Catalytic activity/Vol] 58 U/L 34 - 123 U/L [facility] ALT [Catalytic activity/Vol] 11 U/L 7 - 38 U/L [facility] Anion gap [Moles/Vol] 9 mmol/L 9 - 18 mmol/L [facility] AST [Catalytic activity/Vol] 17 U/L 13 - 35 U/L [facility] Bilirubin [Mass/Vol] 0.5 mg/dL 0.2 - 1 .3 mg/dL [facility] Calcium [Mass/Vol] 9.5 mg/dL 8.5 - 10. 2 mg/dL [facility] Chloride [Moles/Vol] 106 mmol/L High 97 - 10 5 mmol/L [facility] CO2 [Moles/Vol] 26 mmol/L 22 - 30 mmol/L [facility] Creatinine [Mass/Vol] 0.95 mg/dL 0.58 - 0.96 mg/dL [facility] Estimated Glomerular Filtration Rate 79 mL/min/1.73m >=60 mL/min/1.73m [facility] Glucose [Mass/Vol] 89 mg/dL 74 - 99 mg/dL [facility] Potassium [Moles/Vol] 3.6 mmol/L Low 3.7 - 5.1 mmol/L [facility] Protein [Mass/Vol] 7.4 g/dL 6.3 - 8.0 g/dL Cl [facility] Sodium [Moles/Vol] 141 mmol/L 136 - 144 mmol/L [facility] Urea nitrogen [Mass/Vol] 14 mg/dL 7 - 21 mg/dL [facility] HBV core Ab Ser Qlon 023 HBV core Ab Ql (S) Negative Normal Negative [facility] Comment on above: Order Comment: Rylee chauhan Type: BLOOD SPECIMENOrdering Facility: [facility] Address: [address] [place] [address] Result Comment: No e vidence of current or past infection with Hepatitis B virus. Should recent infection be suspected, repeat testing may be considered 3-4 weeks after this draw. Performed By: #### 1 6933-4, 93618-6, 5195-3 ####[facility] [id number] [facility] [place] [address] [place] HBV surface Ab Ql (S)on 09-10 HBV surface Ab Qn (S) 528.76 mIU/mL [facility] HBV surface Ab Qn (S) 528.76 mIU/mL Normal [facility] Comment on above: Order Comment: Rylee chauhan Type: BLOOD SPECIMENOrdering Facility: [facility] Address: [address] [place] [address] Result Comment: <8 m IU/mL: No serological evidence of immunity to Hepatitis B Virus. >/= 8 to <12 mIU/mL: No serological evidence of immunity to Hepatitis B Virus. >/= 12 mIU/mL: Consistent with serological evidence of immunity to Hepatitis B Virus. Performed By: #### 1 6933-4, 32869-4, 5-3 ####[facility] [id number] [place] [address] [place] HBV surface Ab Ser Qlon 09-10 HBV surface Ab Ql (S) Positive Normal [facility] Comment on above: Order Comment: Speci men Type: BLOOD SPECIMENOrdering Facility: [facility] Address: [address] [place] [address] Result Comment: Cons istent with serological evidence of immunity to Hepatitis B Virus. Performed By: #### 1 6933-4, 17538-6, 5-3 ####[facility] [id number] [place] [address] [place] HBV surface Ag Ser Qlon 09-10 HBV surface Ag Ql (S) Negative Normal Negative [facility] Comment on above: Order Comment: Speci men Type: BLOOD SPECIMENOrdering Facility: [facility] Address: [address] [place] [address] Performed By: #### 1 6933-4, 77264-8, 5-3 ####[facility] [id number] [place] [address] [place] HCV Ab Ser Qlon 09-25-2023 HCV Ab Ql (S) Negative Normal Negative [facility] Comment on above: Order Comment: Speci men Type: BLOOD SPECIMENOrdering Facility: [facility] Address: [address] [place] [address] Result Comment: The result suggests no evidence of active infection with Hepatitis C virus. Should recent infection be suspected, repeat testing may be considered 4-6 weeks after this draw. Performed By: #### 1 6128-1 ####[facility] [id number] [place] [address] [place] HEP B CORE AB TOTALon 2022 HBV core Ab Ql (S) Negative Negative [facility] HEP B SURF ABon 09-25-2023 HBV surface Ab Ql (S) Positive [facility] HEP B SURF AG SCRNon 023 HBV surface Ag Ql (S) Negative Negative [facility] HEPATITIS C ANTIBODY IA WITH CONFIRMATIONon 09-25-2023 HCV Ab Ql (S) Negative Negative [facility] B-HCG SerPl-aCncon 3 HCG.beta subunit Qn m[IU]/mL Normal <5.0 [facility] Comment on above: Order Comment: Speci men Type: BLOOD SPECIMEN [facility] Address: [address] [place] [address] Result Comment: Nega tive Performed By: #### 2 276-4 #### [facility] CLIA [id number] [address] [place] [address] [place] IgG SerPl-mCncon 09-24-2023 IgG [Mass/Vol] 1281 mg/dL Normal 700-1600 [facility] Comment on above: Order Comment: Speci men Type: BLOOD SPECIMENOrdering Facility: [facility] Address: [address] [place] [address] Performed By: #### 2 472-9, 2465-3 ####[facility]IA [id number] [place] [address] [place] IgM SerPl-mCncon 09-24-2023 IgM [Mass/Vol] 128 mg/dL Normal 40-230 [facility] Comment on above: Order Comment: Speci men Type: BLOOD SPECIMENOrdering Facility: [facility] Address: [address] [place] [address] Performed By: #### 2 472-9, 2465-3 ####[facility] LABCLIA [id number] [address] STATES OF [facility] Christiano [facility] ---- SMOOTH MARTINEZ ([id number]) 1985 F Date Time Provider Department 08/27/[address] [facility] During your visit today, we recorded the [...] Primary Visit Diagnosis:Uterine polyp [N84.0] Order(s):CONSULT TO EXPERIENCE SPECIALIST [9017] Order #: [id number]: 1 FUTURE Prescriptions as of 08/27/2023 - [...] (FLONASE) 50 mcg/actuation nasal spray Use 1 [place] in each nostril once daily. Problem List [...] Status:Closed by JANICE L[address] on 08/27/23 Normal [facility] PELVIC US WHIon 08-26-2023 [facility] CBC W Auto Differential pane l (Bld)on 08-19-2023 Basophils (Bld) [#/Vol] 0.05 10*3/uL Normal <0.11 [facility] Comment on above: Order Comment: Speci men Type: BLOOD SPECIMEN [facility] Address: [address] [place] [address] Performed By: #### 2 276-4 #### [facility] CLIA [id number] [address] [facility] [place] [place] [address] [place] Basophils/100 WBC (Bld) 0.7 % Normal C [facility] Comment on above: Order Comment: Speci men Type: BLOOD SPECIMEN [facility] Address: [address] [place] [address] Performed By: #### 2 276-4 #### [facility] CLIA [id number] [address] [place] [address] [place] Differential cell count method Nom (Bld) Auto Normal [facility] Comment on above: Order Comment: Speci men Type: BLOOD SPECIMEN [facility] Address: [address] [place] [address] Performed By: #### 2 276-4 #### [facility] CLIA [id number] [address] [place] [address] [place] Eosinophils (Bld) [#/Vol] 0.10 10*3/uL Normal <0.46 [facility] Comment on above: Order Comment: Speci men Type: BLOOD SPECIMEN [facility] Address: [address] [place] [address] Performed By: #### 2 276-4 #### [facility] CLIA [id number] [address] [place] [address] [place] Eosinophils/100 WBC (Bld) 1.5 % Normal [facility] Comment on above: Order Comment: Speci men Type: BLOOD SPECIMEN [facility] Address: [address] [place] [address] Performed By: #### 2 276-4 #### [facility] CLIA [id number] [address] [place] [address] [place] Erythrocyte distribution width (RBC) [Ratio] 24.4 % High 11.5-15.0 [facility] Comment on above: Order Comment: Speci men Type: BLOOD SPECIMEN [facility] Address: [address] [place] [address] Performed By: #### 2 276-4 #### [facility] CLIA [id number] [address] [place] [address] [place] Hematocrit (Bld) [Volume fraction] 35.6 % Low 36.0-46.0 [facility] Comment on above: Order Comment: Speci men Type: BLOOD SPECIMEN [facility] Address: [address] [place] [address] Performed By: #### 2 276-4 #### [facility] CLIA [id number] [address] [place] [address] [place] Hemoglobin (Bld) [Mass/Vol] 10.6 g/dL Low 11.5-15.5 [facility] Comment on above: Order Comment: Speci men Type: BLOOD SPECIMEN [facility] Address: [address] [place] [address] Performed By: #### 2 276-4 #### [facility] CLIA [id number] [address] [place] [address] [place] Immature granulocytes (Bld) [#/Vol] 10*3/uL Normal <0.10 [facility] Comment on above: Order Comment: Speci men Type: BLOOD SPECIMEN [facility] Address: [address] [place] [address] Performed By: #### 2 276-4 #### [facility] CLIA [id number] [address] [place] [address] [place] Immature granulocytes/100 WBC (Bld) 0.3 % Normal [facility] Comment on above: Order Comment: Speci men Type: BLOOD SPECIMEN [facility] Address: [address] [place] [address] Performed By: #### 2 276-4 #### [facility] CLIA [id number] [address] [place] [address] [place] Lymphocytes (Bld) [#/Vol] 2.27 10*3/uL Normal 1.00-4.00 [facility] Comment on above: Order Comment: Speci men Type: BLOOD SPECIMEN [facility] Address: [address] [place] [address] Performed By: #### 2 276-4 #### [facility] CLIA [id number] [address] [place] [address] [place] Lymphocytes/100 WBC (Bld) 32.9 % Normal [facility] Comment on above: Order Comment: Speci men Type: BLOOD SPECIMEN [facility] Address: [address] [place] [address] Performed By: #### 2 276-4 #### [facility] CLIA [id number] [address] [place] [address] [place] MCH (RBC) [Entitic mass] 22.1 pg Low 26.0-34.0 [facility] Comment on above: Order Comment: Speci men Type: BLOOD SPECIMEN [facility] Address: [address] [place] [address] Performed By: #### 2 276-4 #### [facility] CLIA [id number] [address] [place] [address] [place] MCHC (RBC) [Mass/Vol] 29.8 g/dL Low 30.5-36.0 [facility] Comment on above: Order Comment: Speci men Type: BLOOD SPECIMEN [facility] Address: [address] [place] [address] Performed By: #### 2 276-4 #### [facility] CLIA [id number] [address] [place] [address] [place] MCV (RBC) [Entitic vol] 74.3 fL Low 80.0-100.0 [facility] [facility] Comment on above: Order Comment: Speci men Type: BLOOD SPECIMEN [facility] Address: [address] [place] [address] Performed By: #### 2 276-4 #### [facility] CLIA [id number] [address] [place] [address] [place] Monocytes (Bld) [#/Vol] 0.52 10*3/uL Normal <0.87 [facility] Comment on above: Order Comment: Speci men Type: BLOOD SPECIMEN Ordering Facility: [facility] Address: [address] [place] [address] Performed By: #### 2 276-4 #### [facility] CLIA [id number] [address] [place] [address] [place] Monocytes/100 WBC (Bld) 7.5 % Normal C [facility] Comment on above: Order Comment: Speci men Type: BLOOD SPECIMEN [facility]ing [facility] Address: [address] [place] [address] Performed By: #### 2 276-4 #### [facility] CLIA [id number] [address] [place] [address] [place] Neutrophils (Bld) [#/Vol] 3.93 10*3/uL Normal 1.45-7.50 [facility] Comment on above: Order Comment: Speci men Type: BLOOD SPECIMEN [facility] Address: [address] [place] [address] Performed By: #### 2 276-4 #### [facility] CLIA [id number] [address] [place] [address] [place] Neutrophils/100 WBC (Bld) 57.1 % Normal [facility] Comment on above: Order Comment: Speci men Type: BLOOD SPECIMEN [facility] Address: [address] [place] [address] Performed By: #### 2 276-4 #### [facility] CLIA [id number] [address] [place] [address] [place] Nucleated RBC (Bld) [#/Vol] 10*3/uL Normal <0.01 [facility] Comment on above: Order Comment: Speci men Type: BLOOD SPECIMEN [facility] Address: [address] [place] [address] Performed By: #### 2 276-4 #### [facility] CLIA [id number] [address] [place] [address] [place] Nucleated RBC/100 WBC (Bld) [Ratio] 0.0 /100 WBC Normal [facility] Comment on above: Order Comment: Speci men Type: BLOOD SPECIMEN [facility] Address: [address] [place] [address] Performed By: #### 2 276-4 #### [facility] CLIA [id number] [address] [place] [address] [place] Platelet mean volume (Bld) [Entitic vol] Normal [facility] Comment on above: Order Comment: Speci men Type: BLOOD SPECIMEN [facility] Address: [address] [place] [address] Result Comment: Unab le to Report. Performed By: #### 2 276-4 #### [facility] CLIA [id number] [address] [place] [address] [place] Platelets (Bld) [#/Vol] 213 10*3/uL Normal 150-400 [facility] Comment on above: Order Comment: Speci men Type: BLOOD SPECIMEN [facility] Address: [address] [place] [address] Result Comment: No c lot detected. Performed By: #### 2 276-4 #### [facility] CLIA [id number] [address] [place] [address] [place] RBC (Bld) [#/Vol] 4.79 10*6/uL Normal 3.90-5.20 [facility] Comment on above: Order Comment: Speci men Type: BLOOD SPECIMEN [facility] Address: [address] [place] [address] Performed By: #### 2 276-4 #### [facility] CLIA [id number] [address] [place] [address] [place] WBC (Bld) [#/Vol] 6.89 10*3/uL Normal 3.70-11.00 [facility] Comment on above: Order Comment: Speci men Type: BLOOD SPECIMEN [facility] Address: [address] [place] [address] Performed By: #### 2 276-4 #### [facility] CLIA [id number] [address] [facility] [id number] [place] [address] [place] CNOVon 08-19-2023 CNOV Office Visit (NEURFH) ---- SMOOTH MARTINEZ ([id number]) 1985 F Date Time Provider Department 08/19/23 9:00 AM [facility] During your visit today, we recorded the following information about you: Pulse Blood pressure Weight Height 96/minute 104/77 56.7 kg 1.689 m Germania Wilkinson MD 08/19/2023 4:26 PM Signed [facility] New Patient Evaluation [...] or near accidents due to drowsy drivin Dexter Sleepiness Scale 01/03/2020 08/11/2023 Score 0 0 [...] Had 2 sleep studies - one at [place] [facility] [place] OTHER RELEVANT LABS AND STUDIES: PAST MEDICAL [...] of Date: (more content not included)... Normal [facility] Ferritin SerPl-mCncon 2022 Ferritin [Mass/Vol] 25.6 ng/mL Normal 14.7-205.1 [facility] Comment on above: Order Comment: Speci men Type: BLOOD SPECIMEN [facility] Address: [address] [place] [address] Performed By: #### 2 276-4 #### [facility] CLIA [id number] [address] [place] [address] [place] Iron and Iron binding capaci ty panelon 08-19-2023 Iron [Mass/Vol] 27 ug/dL Low 41-186 [facility] Comment on above: Order Comment: Speci men Type: BLOOD SPECIMENOrdering Facility: [facility] Address: [address] [place] [address] Performed By: #### 5 0190-8 ####[facility] [id number] [place] [id number] [facility] Iron binding capacity [Mass/Vol] 353 ug/dL Normal 232-386 [facility] Comment on above: Order Comment: Speci men Type: BLOOD SPECIMENOrdering Facility: [facility] Address: [address] [place] [address] Performed By: #### 5 0190-8 ####[facility] LABIA [id number] [address] STATES OF [facility] Iron/TIBC [Molar ratio] 7.6 % Low 15.0-57.0 C [facility] Comment on above: Order Comment: Speci men Type: BLOOD SPECIMENOrdering Facility: [facility] Address: [address] [place] [address] Performed By: #### 5 0190-8 ####[facility] LABIA [id number] [place] [id number] [facility] CNOVon 07-23-2023 CNOV Office Visit ([facility]EM[facility]) ---- SMOOTH MARTINEZ ([id number]) 1985 F Date Time Provider Department 07/23/23 11:15 AM TOR HERNANDEZ [facility] During your visit today, we recorded the following information about you: Pulse Blood pressure Weight 69/minute 94/62 56.7 kg Tor Hernandez APRN.HOST/HOSTESS 07/23/2023 5:00 PM [facility] FOLLOWUP/ESTABLISHE D PATIENT VISIT PRINCIPAL NEUROLOGIC DIAGNOSIS: Multiple Sclerosis DISEASE SUMMARY Date of onset: 03/2007 Date of diagnosis of MS: 03/2007 Disease course at onset: Relapsing-Remitting Current disease course: Progressive without relapses Previous disease therapies: - Betaseron [id number] - Copaxone 9512-4804 - Tysabri 2009-Summer 2019 (stopped due to [...] over 3 weeks following occipital relase - 4926-7165 recurrent OS ON - 9884-5822 several relapses including L numbness, weakness, constipation, urinary urgency - 2019 R weakness and numbness needing a wheelchair, hospitalized at [facility] (off Tysabri x3 months due to planning [...] effects. 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 without walker or cane Leans on [...] in August Neuro-QoL Functions (higher=better functioning) Flowsheet [facility] Office Visit from 07/23/2023 in [facility] Office Visit from 01/17/2023 in [facility] Appointment from 01/15/2023 in [facility] Upper Extremity Domain T Score 28.29 31.35 30 Lower Extremity Domain T Score 36.94 36.94 39 Cognitive Function Domain T Score 30.7 28.53 38 Positive Affect Well Being T Score -- -- -- Ability To Participate In Social Roles T Score 39.9 39.9 43 Satisfaction With Social Roles T Score 39.66 39.66 45 Neuro-QoL Symptoms (higher=worse symptoms) Flowsheet [facility] Office Visit from 07/23/2023 in [facility] Office Visit from 01/17/2023 in [facility] Appointment from 01/15/2023 in [facility] Sleep Domain T Score 69.2 68.89 61 [...] Edema of lower extremity (04/17/2021), Multiple sclerosis ([facility]), Seizure ([facility]), and Thyroid disease. She has no past medical history of Asthma, Blood dyscrasia, Breast disorder, Chlamydia, Chronic kidney disease, Complication of anesthesia, Coronary artery disease, Diabetes ([facility]), Diabetes, gestational, Gonorrhea, Herpes simplex virus (HSV) infection, History of pre-eclampsia in prior , currently , HIV infection ([facility]), (more content not included)... Normal [facility] ---- SMOOTH MARTINEZ ([id number]) 1985 F Date Time Provider Department 07/18/[address] During your visit today, we [...] [D50.0] Order(s):CBC + DIFF [SQCBCDIF] Order #: [id number] FUTURE IRON + TIBC [SQIRON] Order #: [id number] FUTURE FERRITIN BLD [SQFERR] Order #: [id number] FUTURE Prescriptions as of 07/21/2023 - ketoconazole [...] (FLONASE) 50 mcg/actuation nasal spray Use 1 [place] in each nostril once daily. - MAGNESIUM [...] Status:Closed by SIXTO REBOLLEDO on 07/21/23 Normal [facility] CBC W Auto Differential pane l (Bld)on 07-17-2023 Basophils (Bld) [#/Vol] 0.06 10*3/uL Normal <0.11 [facility] Comment on above: Order Comment: Speci men Type: BLOOD SPECIMEN [facility] Address: [address] [place] [address] Performed By: #### 2 276-4 #### [facility] CLIA [id number] [facility] [place] [address] [place] Basophils/100 WBC (Bld) 1.2 % Normal [facility] Comment on above: Order Comment: Speci men Type: BLOOD SPECIMEN [facility] Address: [address] [place] [address] Performed By: #### 2 276-4 #### [facility] CLIA [id number] [address] [id number] [address] [place] Differential cell count method Nom (Bld) Auto Normal [facility] Comment on above: Order Comment: Speci men Type: BLOOD SPECIMEN [facility] Address: [address] [place] [address] Performed By: #### 2 276-4 #### [facility] CLIA [id number] [address] [place] [address] [place] Eosinophils (Bld) [#/Vol] 0.09 10*3/uL Normal <0.46 [facility] Comment on above: Order Comment: Speci men Type: BLOOD SPECIMEN [facility] Address: [address] [place] [address] Performed By: #### 2 276-4 #### [facility] CLIA [id number] [address] [place] [address] [place] Eosinophils/100 WBC (Bld) 1.8 % Normal [facility] Comment on above: Order Comment: Speci men Type: BLOOD SPECIMEN [facility] Address: [address] [place] [address] Performed By: #### 2 276-4 #### [facility] CLIA [id number] [address] [place] [address] [place] Erythrocyte distribution width (RBC) [Ratio] 25.8 % High 11.5-15.0 [facility] Comment on above: Order Comment: Speci men Type: BLOOD SPECIMEN [facility] Address: [address] [place] [address] Performed By: #### 2 276-4 #### [facility] CLIA [id number] [address] [place] [address] [place] Hematocrit (Bld) [Volume fraction] 34.2 % Low 36.0-46.0 [facility] Comment on above: Order Comment: Speci men Type: BLOOD SPECIMEN [facility] Address: [address] [place] [address] Performed By: #### 2 276-4 #### [facility] CLIA [id number] [address] [place] [address] [place] Hemoglobin (Bld) [Mass/Vol] 9.6 g/dL Low 11.5-15.5 [facility] Comment on above: Order Comment: Speci men Type: BLOOD SPECIMEN [facility] Address: [address] [place] [address] Performed By: #### 2 276-4 #### [facility] CLIA [id number] [address] [place] [address] [place] Immature granulocytes (Bld) [#/Vol] 10*3/uL Normal <0.10 [facility] Comment on above: Order Comment: Speci men Type: BLOOD SPECIMEN [facility] Address: [address] [place] [address] Performed By: #### 2 276-4 #### [facility] CLIA [id number] [address] [place] [address] [place] Immature granulocytes/100 WBC (Bld) 0.4 % Normal [facility] Comment on above: Order Comment: Speci men Type: BLOOD SPECIMEN [facility] Address: [address] [place] [address] Performed By: #### 2 276-4 #### [facility] CLIA [id number] [address] [place] [address] [place] Lymphocytes (Bld) [#/Vol] 1.52 10*3/uL Normal 1.00-4.00 [facility] Comment on above: Order Comment: Speci men Type: BLOOD SPECIMEN [facility] Address: [address] [place] [address] Performed By: #### 2 276-4 #### [facility] CLIA [id number] [address] [place] [address] [place] Lymphocytes/100 WBC (Bld) 31.2 % Normal [facility] Comment on above: Order Comment: Speci men Type: BLOOD SPECIMEN [facility] Address: [address] [place] [address] Performed By: #### 2 276-4 #### [facility] CLIA [id number] [address] [place] [address] [place] MCH (RBC) [Entitic mass] 19.4 pg Low 26.0-34.0 [facility] Comment on above: Order Comment: Speci men Type: BLOOD SPECIMEN [facility] Address: [address] [place] [address] Performed By: #### 2 276-4 #### [facility] CLIA [id number] [address] [place] [address] [place] MCHC (RBC) [Mass/Vol] 28.1 g/dL Low 30.5-36.0 [facility] Comment on above: Order Comment: Speci men Type: BLOOD SPECIMEN [facility] Address: [address] [place] [address] Performed By: #### 2 276-4 #### [facility] CLIA [id number] [address] [place] [address] [place] MCV (RBC) [Entitic vol] 69.2 fL Low 80.0-100.0 C [facility] Comment on above: Order Comment: Speci men Type: BLOOD SPECIMEN [facility] Address: [address] [place] [address] Performed By: #### 2 276-4 #### [facility] CLIA [id number] [address] [place] [address] [place] Monocytes (Bld) [#/Vol] 0.65 10*3/uL Normal <0.87 [facility] Comment on above: Order Comment: Speci men Type: BLOOD SPECIMEN [facility] Address: [address] [place] [address] Performed By: #### 2 276-4 #### [facility] CLIA [id number] [address] [place] [address] [place] Monocytes/100 WBC (Bld) 13.3 % Normal C [facility] Comment on above: Order Comment: Speci men Type: BLOOD SPECIMEN [facility] Address: [address] [place] [address] Performed By: #### 2 276-4 #### [facility] CLIA [id number] [address] [place] [address] [place] Neutrophils (Bld) [#/Vol] 2.53 10*3/uL Normal 1.45-7.50 [facility] Comment on above: Order Comment: Speci men Type: BLOOD SPECIMEN [facility] Address: [address] [place] [address] Performed By: #### 2 276-4 #### [facility] CLIA [id number] [address] [place] [address] [place] Neutrophils/100 WBC (Bld) 52.1 % Normal [facility] Comment on above: Order Comment: Speci men Type: BLOOD SPECIMEN [facility] Address: [address] [place] [address] Performed By: #### 2 276-4 #### [facility] CLIA [id number] [address] [place] [address] [place] Nucleated RBC (Bld) [#/Vol] 10*3/uL Normal <0.01 [facility] Comment on above: Order Comment: Speci men Type: BLOOD SPECIMEN [facility] Address: [address] [place] [address] Performed By: #### 2 276-4 #### [facility] CLIA [id number] [address] [place] [address] [place] Nucleated RBC/100 WBC (Bld) [Ratio] 0.0 /100 WBC Normal [facility] Comment on above: Order Comment: Speci men Type: BLOOD SPECIMEN [facility] Address: [address] [place] [address] Performed By: #### 2 276-4 #### [facility] CLIA [id number] [address] [place] [address] [place] Platelet mean volume (Bld) [Entitic vol] Normal [facility] Comment on above: Order Comment: Speci men Type: BLOOD SPECIMEN [facility] Address: [address] [place] [address] Result Comment: Unab le to Report. Performed By: #### 2 276-4 #### [facility] CLIA [id number] [address] [place] [address] [place] Platelets (Bld) [#/Vol] 226 10*3/uL Normal 150-400 [facility] Comment on above: Order Comment: Speci men Type: BLOOD SPECIMEN [facility] Address: [address] [place] [address] Result Comment: Resu lts checked and verified.No clot detected. Performed By: #### 2 276-4 #### [facility] CLIA [id number] [address] [place] [address] [place] RBC (Bld) [#/Vol] 4.94 10*6/uL Normal 3.90-5.20 [facility] Comment on above: Order Comment: Speci men Type: BLOOD SPECIMEN [facility] Address: [address] [place] [address] Performed By: #### 2 276-4 #### [facility] CLIA [id number] [address] [place] [address] [place] WBC (Bld) [#/Vol] 4.87 10*3/uL Normal 3.70-11.00 [facility] Comment on above: Order Comment: Speci men Type: BLOOD SPECIMEN [facility] Address: [address] [place], [place] [address] Performed By: #### 2 276-4 #### [facility] CLIA [id number] [address] [place] [address] [facility] CNOVon 07-17-2023 CNOV Office Visit ([facility]) ---- SMOOTH MARTINEZ ([id number]) 1985 F Date Time Provider Department 07/17/23 11:[address] [facility] During your visit today, we recorded the [...] with her significant other. She went to [place] for a few months to live with her parents. She canceled or no showed her appointments with [facility] and with her therapist. Patient said she [...] loss, confusion., Denies weakness, numbness or tingling.. HEMATOLOGIC/LYMPHAT IC/IMMUNOLOGIC: Denies anemia, bruising, bleeding abnormalities. ENDOCRINE: Denies [...] No C (more content not included)... Normal [facility] Comprehensive metabolic 2000 panelon 07-17-2023 Albumin [Mass/Vol] 4.6 g/dL Normal 3.9-4.9 [facility] Comment on above: Order Comment: Speci men Type: BLOOD SPECIMEN [facility] Address: [address] [place] [address] Performed By: #### 2 276-4 #### [facility] CLIA [id number] [address] [place] [address] [place] ALP [Catalytic activity/Vol] 49 U/L Normal 34-123 [facility] Comment on above: Order Comment: Speci men Type: BLOOD SPECIMEN [facility] Address: [address] [place] [address] Performed By: #### 2 276-4 #### [facility] CLIA [id number] [address] [place] [address] [place] ALT [Catalytic activity/Vol] 10 U/L Normal 7-38 [facility] Comment on above: Order Comment: Speci men Type: BLOOD SPECIMEN [facility] Address: [address] [place] [address] Performed By: #### 2 276-4 #### [facility] CLIA [id number] [address] [place] [address] [place] Anion gap [Moles/Vol] 9 mmol/L Normal 9-18 [facility] Comment on above: Order Comment: Speci men Type: BLOOD SPECIMEN [facility] Address: [address] [place] [address] Performed By: #### 2 276-4 #### [facility] CLIA [id number] [address] [place] [address] [place] AST [Catalytic activity/Vol] 17 U/L Normal 13-35 [facility] Comment on above: Order Comment: Speci men Type: BLOOD SPECIMEN [facility] Address: [address] [place] [address] Performed By: #### 2 276-4 #### [facility] CLIA [id number] [address] [place] [address] [place] Bilirubin [Mass/Vol] 0.5 mg/dL Normal 0.2-1.3 [facility] Comment on above: Order Comment: Speci men Type: BLOOD SPECIMEN [facility] Address: [address] [place] [address] Performed By: #### 2 276-4 #### [facility] CLIA [id number] [address] [place] [address] [place] Calcium [Mass/Vol] 9.4 mg/dL Normal 8.5-10.2 [facility] Comment on above: Order Comment: Speci men Type: BLOOD SPECIMEN [facility] Address: [address] [place] [address] Performed By: #### 2 276-4 #### [facility] CLIA [id number] [address] [place] [address] [place] Chloride [Moles/Vol] 106 mmol/L High 97-105 [facility] Comment on above: Order Comment: Speci men Type: BLOOD SPECIMEN [facility] Address: [address] [place] [address] Performed By: #### 2 276-4 #### [facility] CLIA [id number] [address] [place] [address] [place] CO2 [Moles/Vol] 24 mmol/L Normal 22-30 [facility] Comment on above: Order Comment: Speci men Type: BLOOD SPECIMEN [facility] Address: [address] [place] [address] Performed By: #### 2 276-4 #### [facility] CLIA [id number] [address] [place] [address] [place] Creatinine [Mass/Vol] 0.94 mg/dL Normal 0.58-0.96 [facility] Comment on above: Order Comment: Speci men Type: BLOOD SPECIMEN [facility] Address: [address] [place] [address] Performed By: #### 2 276-4 #### [facility] CLIA [id number] [address] [place] [address] [place] Creatinine and Glomerular filtration rate.predicted panel (S/P/Bld) 80 mL/min/1.73m??? Normal >=60 [facility] Comment on above: Order Comment: Speci men Type: BLOOD SPECIMEN Ordering Facility: [facility] Address: [address] [place] [address] Result Comment: Priscila mated Glomerular Filtration Rate [...] reflect actual GFR. Performed By: #### 2 276-4 #### [facility] CLIA [id number] [address] [place] [address] [place] Glucose [Mass/Vol] 80 mg/dL Normal 74-99 [facility] Comment on above: Order Comment: Speci men Type: BLOOD SPECIMEN Ordering Facility: [facility] Address: [address] [place] [address] Result Comment: The [place] Diabetes Association (ADA) provides guidance for cutoff [...] Standards of Medical Care in Diabetes 2016, [place] Diabetes Association. Diabetes Care. 2016.39(Suppl 1). Performed By: #### 2 276-4 #### [facility] CLIA [id number] [address] [place] [address] [place] Potassium [Moles/Vol] 4.4 mmol/L Normal 3.7-5.1 [facility] Comment on above: Order Comment: Speci men Type: BLOOD SPECIMEN [facility]ing Facility: [facility] Address: [address] [place] [address] Performed By: #### 2 276-4 #### [facility] CLIA [id number] [address] [place] [address] [place] Protein [Mass/Vol] 7.7 g/dL Normal 6.3-8.0 [facility] Comment on above: Order Comment: Speci men Type: BLOOD SPECIMEN [facility]ing Facility[facility] Address: [address] [place] [address] Performed By: #### 2 276-4 #### [facility] CLIA [id number] [address] [place] [address] [place] Sodium [Moles/Vol] 139 mmol/L Normal 136-144 [facility] Comment on above: Order Comment: Speci men Type: BLOOD SPECIMEN [facility]ing [facility] Address: [address] [place] [address] Performed By: #### 2 276-4 #### [facility] CLIA [id number] [address] [place] [address] [place] Urea nitrogen [Mass/Vol] 13 mg/dL Normal 7-21 [facility] Comment on above: Order Comment: Speci men Type: BLOOD SPECIMEN [facility]ing Facility[facility] Address: [address] [place] [address] Performed By: #### 2 276-4 #### [facility] CLIA [id number] [address] [place] [address] [place] Ferritin SerPl-mCncon 2022 Ferritin [Mass/Vol] 15.8 ng/mL Normal 14.7-205.1 [facility] Comment on above: Order Comment: Speci men Type: BLOOD SPECIMEN [facility]ing [facility] Address: [address] [place] [address] Performed By: #### 2 276-4 #### [facility] CLIA [id number] [address] [place] [address] [place] Iron and Iron binding capaci ty panelon 07-17-2023 Iron [Mass/Vol] 321 ug/dL High 41-186 [facility] Comment on above: Order Comment: Speci men Type: BLOOD SPECIMEN [facility] Address: [address] [place] [address] Performed By: #### 2 276-4 #### [facility] CLIA [id number] [facility] [place] [address] [place] Iron binding capacity [Mass/Vol] 400 ug/dL High 232-386 [facility] Comment on above: Order Comment: Speci men Type: BLOOD SPECIMEN [facility] Facility[facility] Address: [place] [address] Performed By: #### 2 276-4 #### [facility] CLIA [id number] [address] [place] [address] [place] Iron/TIBC [Molar ratio] 80.3 % High 15.0-57.0 C [facility] Comment on above: Order Comment: Speci men Type: BLOOD SPECIMEN [facility] Facility[facility] Address: [place] [address] Performed By: #### 2 276-4 #### [facility] CLIA [id number] [address] [place] [address] [place] TSH SerPl-aCncon 07-17-2023 TSH Qn 1.410 m[IU]/L Normal 0.270-4.200 [facility] Comment on above: Order Comment: Speci men Type: BLOOD SPECIMEN Ordering Facility[facility] Address: [address] [place] [address] Result Comment: If t he patient is , TSH reference range varies by gestational period: First Trimester (weeks 9-12): 0.180-2.990 mIU/L Second Trimester: 0.110-3.980 mIU/L Third Trimester: 0.480-4.710 mIU/L Rich Patrick et al. A Practical Approach for the Verifications and Determination of Site- and Trimester-Specific Reference Intervals for Thyroid Function tests in . Thyroid, 2019:29:3:412-420. Vivek Null, et al. 2017 Guidelines of the [place] Thyroid Association for the Diagnosis and Management of Thyroid Disease during and the . Thyroid, 2017:27:3:315-389. Performed By: #### 2 276-4 #### [facility] CLIA [id number] [address] [place] [address] [place] CNPLilli 03-31-2023 CNPN Telephone (NIQ) ---- ABELSMOOTH ([id number]) 1985 F Date Time Provider Department 03/31/23 JOSE RAUL SANTANA During your visit today, we recorded the following information about you: Alonzo Blanco Pss 03/31/2023 3:45 PM Signed Received call from patient to discuss getting her next infusion in [place]. Explained the potential concerns from the drug company regarding her [place] Medicaid possibly not covering the infusion. Patient is currently in [place] and has applied for [place] Medicaid. She believes the facility in [place] will accept this since she had this coverage last time she went there. She said she was told application can take up to 45 days to process, but they can backdate her start date. Given this information, patient wishes to proceed with transferring infusions to requested hospital in [place]. Request sent to care team for orders. [...] (FLONASE) 50 mcg/actuation nasal spray Use 1 [place] in each nostril once daily. - MAGNESIUM ORAL Take 1 tablet by mouth twice daily. - Deakovnh-Nv-Tec-Fe- FA ( VITAMIN) tab Take 1 tablet by [...] Status:Closed by ALONZO SULLIVAN on 03/31/23 Normal [facility] ---- SMOOTH MARTINEZ ([id number]) 1985 F Date Time Provider Department 03/13/[address] [facility] During your visit today, we recorded the [...] (FLONASE) 50 mcg/actuation nasal spray Use 1 [place] in each nostril once daily. - MAGNESIUM ORAL Take 1 tablet by mouth twice daily. - Rjyofdjx-Il-Bly-Fe- FA ( VITAMIN) tab Take 1 tablet by [...] Status:Closed by JANICE [address] on 03/13/23 Normal [facility] Trichmonas Vaginalis Screen (EIA)on 01-24-2023 Trichomonas Vaginalis Screen (EIA) Negative Normal [facility] Comment on above: Performed By: #### E TRIC #### [facility] [address] [facility] [address] Wet Prep-Medical Purposes On berry 01-24-2023 Wet Prep Clue Cellls 1+ Abnormal [facility] Comment on above: Performed By: #### W ETPR #### [facility] [address] [place] [address] Wet Prep Trichomonas See EIA Normal [facility] Comment on above: Performed By: #### W ETPR #### [facility] [address] [place] [address] Wet Prep Yeast None Seen Normal [facility] Comment on above: Performed By: #### W ETPR #### [facility] [address] [place] [address] CBC W Auto Differential pane l (Bld)on 01-17-2023 Basophils (Bld) [#/Vol] 0.07 10*3/uL <0.11 k/uL [facility] Basophils/100 WBC (Bld) 1.0 % C [facility] Differential cell count method Nom (Bld) Auto [facility] Eosinophils (Bld) [#/Vol] 0.07 10*3/uL <0.46 k/uL [facility] Eosinophils/100 WBC (Bld) 1.0 % [facility] Erythrocyte distribution width (RBC) [Ratio] 15.5 % High 11.5 - 15.0 % [facility] Hematocrit (Bld) [Volume fraction] 31.5 % Low 36.0 - 46.0 % [facility] Hemoglobin (Bld) [Mass/Vol] 9.4 g/dL Low 11.5 - 15.5 g/dL [facility] Immature granulocytes (Bld) [#/Vol] <0.10 k/uL [facility] Immature granulocytes/100 WBC (Bld) 0.3 % [facility] Lymphocytes (Bld) [#/Vol] 2.30 10*3/uL 1.00 - 4.00 k/uL [facility] Lymphocytes/100 WBC (Bld) 32.7 % [facility] MCH (RBC) [Entitic mass] 22.2 pg Low 26.0 - 34.0 pg [facility] MCHC (RBC) [Mass/Vol] 29.8 g/dL Low 30.5 - 36.0 g/dL [facility] MCV (RBC) [Entitic vol] 74.3 fL Low 80.0 - 100.0 fL [facility] Monocytes (Bld) [#/Vol] 0.51 10*3/uL <0.87 k/uL [facility] Monocytes/100 WBC (Bld) 7.2 % C [facility] Neutrophils (Bld) [#/Vol] 4.07 10*3/uL 1.45 - 7.50 k/uL [facility] Neutrophils/100 WBC (Bld) 57.8 % [facility] Nucleated RBC (Bld) [#/Vol] <0.01 k/uL [facility] Nucleated RBC/100 WBC (Bld) [Ratio] 0.0 /100 WBC [facility] Platelet mean volume (Bld) [Entitic vol] 13.6 fL High 9.0 - 12.7 fL [facility] Platelets (Bld) [#/Vol] 304 10*3/uL 150 - 400 k /uL [facility] RBC (Bld) [#/Vol] 4.24 10*6/uL 3.90 - 5.2 0 m/uL [facility] WBC (Bld) [#/Vol] 7.04 10*3/uL 3.70 - 11. 00 k/uL [facility] Comprehensive metabolic 2000 panelon 01-17-2023 Albumin [Mass/Vol] 4.5 g/dL 3.9 - 4.9 g/dL [facility] ALP [Catalytic activity/Vol] 62 U/L 34 - 123 U/L [facility] ALT [Catalytic activity/Vol] 11 U/L 7 - 38 U/L [facility] Anion gap [Moles/Vol] 9 mmol/L 9 - 18 mmol/L [facility] AST [Catalytic activity/Vol] 18 U/L 13 - 35 U/L [facility] Bilirubin [Mass/Vol] 0.3 mg/dL 0.2 - 1 .3 mg/dL [facility] Calcium [Mass/Vol] 9.8 mg/dL 8.5 - 10. 2 mg/dL [facility] Chloride [Moles/Vol] 104 mmol/L 97 - 10 5 mmol/L [facility] CO2 [Moles/Vol] 26 mmol/L 22 - 30 mmol/L [facility] Creatinine [Mass/Vol] 0.79 mg/dL 0.58 - 0.96 mg/dL [facility] Estimated Glomerular Filtration Rate 99 mL/min/1.73m >=60 mL/min/1.73m [facility] Glucose [Mass/Vol] 69 mg/dL Low 74 - 99 mg/dL [facility] Potassium [Moles/Vol] 4.2 mmol/L 3.7 - 5.1 mmol/L [facility] Protein [Mass/Vol] 7.9 g/dL 6.3 - 8.0 g/dL [facility] Sodium [Moles/Vol] 139 mmol/L 136 - 144 mmol/L [facility] Urea nitrogen [Mass/Vol] 11 mg/dL 7 - 21 mg/dL [facility] C.trachomatis N.gonorrhoeae DNAon 12-10-2022 C. trachomatis DNA DEIRDRE+probe Ql (Unsp spec) Negative Normal Negative [facility] N. gonorrhoeae DNA DEIRDRE+probe Ql (Unsp spec) Negative Normal Negative [facility] Trichmonas Vaginalis Screen (EIA)on 12-06-2022 Trichomonas Vaginalis Screen (EIA) Negative Normal [facility] Comment on above: Performed By: #### E TRIC #### [facility] [address] [place] [address] Wet Prep-Medical Purposes On berry 12-06-2022 Wet Prep Clue Cellls 1+ Abnormal [facility] Comment on above: Performed By: #### W ETPR #### [facility] [address] [place] [address] Wet Prep Trichomonas See EIA Normal [facility] Comment on above: Performed By: #### W ETPR #### [facility] [address] [place] [address] Wet Prep Yeast None Seen Normal [facility] Comment on above: Performed By: #### W ETPR #### [facility] [address] [place] [address] Albumin [Mass/volume] in Ser um or PlasmaOrdered By: Vishal Agarwal on 10-27-2022 Albumin [Mass/Vol] 4.1 g/dL 3.2-5.5 [facility] Basophils Auto (Bld) [#/Vol] Ordered By: Vishal Agarwal on 10-27-2022 Basophils (Bld) [#/Vol] 0.0 10*3/uL 0.0-0.2 [facility] Basophils/100 WBC Auto (Bld) Ordered By: Vishal Agarwal on 10-27-2022 Basophils/100 WBC (Bld) 0.4 % . F [facility] COVID CepheidOrdered By: Brook Agarwal on 10-27-2022 SARS-CoV-2 (COVID-19) Ab IA Ql Positive Negative [facility] Comment on above: This is a duplicate CepHatsizeid Xpert Xpress CoV-2/Flu/RSV Plus RNA by RT-PCR result to be used for statistical tracking purpose only. SARS-CoV-2 (COVID-19) RNA DEIRDRE+probe Ql (Unsp spec) [facility] Creatinine and Glomerular fi ltration rate.predicted panel (S/P/Bld)Ordered By: Vishal Agarwal on 10-27-2022 Creatinine [Mass/Vol] 0.96 mg/dL 0.44-1.[address] [facility] Eosinophils Auto (Bld) [#/Vo l]Ordered By: Vishal Agarwal on 10-27-2022 Eosinophils (Bld) [#/Vol] 0.0 10*3/uL 0.0-0.45 [facility] Eosinophils/100 WBC Auto (Bl d)Ordered By: Vishal Agarwal on 10-27-2022 Eosinophils/100 WBC (Bld) 0.0 % . [facility] Erythrocyte distribution wid th Auto (RBC) [Ratio]Ordered By: Vishal Agarwal on 10-27-2022 Erythrocyte distribution width (RBC) [Ratio] 17.4 % 11.9-15.3 [facility] Estimated glomerular filtrat ion rate (GFR) non- AmericanOrdered By: Vishal Agarwal on 10-27-2022 GFR/1.73 sq M.predicted among non-blacks MDRD (S/P/Bld) [Vol rate/Area] > 60 mL/Min [facility] Globulin Calc (S) [Mass/Vol] Ordered By: Vishal Agarwal on 10-27-2022 Globulin (S) [Mass/Vol] 3.5 g/dL [facility] Hematocrit Auto (Bld) [Volum e fraction]Ordered By: Vishal Agarwal on 10-27-2022 Hematocrit (Bld) [Volume fraction] 38.7 % 34.0-46.4 [facility] Hemoglobin [Mass/volume] in BloodOrdered By: Vishal Agarwal on 10-27-2022 Hemoglobin (Bld) [Mass/Vol] 12.1 g/dL 11.8-15.4 [facility] Leukocytes [#/volume] correc che for nucleated erythrocytes in Blood by Automated counOrdered By: Vishal Agarwal on 10-27-2022 WBC corrected for nucl RBC Auto (Bld) [#/Vol] 4.5 10*3/uL 3.8-11.6 [facility] Lymphocytes Auto (Bld) [#/Vo l]Ordered By: Vishal Agarwal on 10-27-2022 Lymphocytes (Bld) [#/Vol] 0.5 10*3/uL 1.00-4.8 [facility] Lymphocytes/100 WBC Auto (Bl d)Ordered By: Vishal Agarwal on 10-27-2022 Lymphocytes/100 WBC (Bld) 10.8 % . [facility] MCH Auto (RBC) [Entitic mass ]Ordered By: Vishal Agarwal on 10-27-2022 MCH (RBC) [Entitic mass] 23.7 pg 24.7-34.3 [facility] MCHC Auto (RBC) [Mass/Vol]Or dered By: Vishal Agarwal on 10-27-2022 MCHC (RBC) [Mass/Vol] 31.2 g/dL 32.0-35.[address] [facility] MCV Auto (RBC) [Entitic vol] Ordered By: Vishal Agarwal on 10-27-2022 MCV (RBC) [Entitic vol] 76.0 fL 80-100 [facility] Monocyte distribution width [Entitic volume] in Blood by AutomatedOrdered By: Vishal Agarwal on 10-27-2022 Monocyte distribution width Auto (Bld) [Entitic vol] 24.86 % 0.00-20.00 [facility] Comment on above: For adults in ED, MD W > 20.0 may be associated with a higher risk of sepsis during the first 12 hrs of hospital admission Monocytes Auto (Bld) [#/Vol] Ordered By: Vishal Agarwal on 10-27-2022 Monocytes (Bld) [#/Vol] 0.8 10*3/uL 0.0-0.8 [facility] Monocytes/100 WBC Auto (Bld) Ordered By: Vishal Agarwal on 10-27-2022 Monocytes/100 WBC (Bld) 16.8 % . [facility] Neutrophils Auto (Bld) [#/Vo l]Ordered By: Vishal Agarwal on 10-27-2022 Neutrophils (Bld) [#/Vol] 3.2 10*3/uL 1.8-7.7 [facility] Neutrophils/100 WBC Auto (Bl d)Ordered By: Vishal Agarwal on 10-27-2022 Neutrophils/100 WBC (Bld) 72.0 % . [facility] No Panel InformationOrdered By: Vishal Agarwal on 10-27-2022 Estimated GFR () > 60 mL/Min [facility] Comment on above: GFR estimated refere nce range: According to KDOQI guidelines, <60 ml/min/1.73m2 is sufficient to diagnose a patient with chronic kidney disease. Pharmacy Creatinine Clearance (Chem 75.11 [facility] Nucleated erythrocytes [Pres ence] in Blood by Automated countOrdered By: Vishal Agarwal on 10-27-2022 Nucleated RBC Auto Ql (Bld) 0.1 /100{WBC} 0-0.5 [facility] Platelet mean volume Auto (B ld) [Entitic vol]Ordered By: Vishal Agarwal on 10-27-2022 Platelet mean volume (Bld) [Entitic vol] 11.0 fL 6.3-10.7 [facility] Platelets Auto (Bld) [#/Vol] Ordered By: Vishal Agarwal on 10-27-2022 Platelets (Bld) [#/Vol] 148 10*3/uL 150-450 [facility] Protein [Mass/volume] in Ser um or PlasmaOrdered By: Vishal Agarwal on 10-27-2022 Protein [Mass/Vol] 7.6 g/dL 6.1-7.9 [facility] RBC Auto (Bld) [#/Vol]Ordere d By: Vishal Agarwal on 10-27-2022 RBC (Bld) [#/Vol] 5.10 10*6/uL 3.60-5.00 [facility] Serum or plasma alanine gannon otransferase measurement without P-5'-P (enzymatic activiOrdered By: Vishal Agarwal on 10-27-2022 ALT No additional P-5'-P [Catalytic activity/Vol] 18 U/L 10-60 [facility] Serum or plasma albumin/glob ulin mass ratioOrdered By: Vishal Agarwal on 10-27-2022 Albumin/Globulin [Mass ratio] 1.2 {ratio} [facility] Serum or plasma alkaline bull sphatase measurement (enzymatic activity/volume)Ordered By: Vishal Agarwal on 10-27-2022 ALP [Catalytic activity/Vol] 43 U/L 32-92 [facility] Serum or plasma anion gap de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 the week. Pt currently has an aide coming Friday and s from 8:30am-2:30pm. She is receiving assistance from local funding and has a Iris BARAHONA . Pt expressed the need for a [facility] aide to assist with light cleaning, washing clothes and help with her hair. She agreed for me to contact Iris BARAHONA to determine if she qualifies for Waiver. Pt stated she is currently established with a new counselor/therapist with [facility]. She also stated her rent has increased and would like childcare when she has to come to appointments. This UNIT ASSISTANT will attempt to find resources for pt. This UNIT ASSISTANT provided supportive counseling for adjustment to illness and financial stressors. IMPRESSION: Pleasant 38 year old patient. Pt is independent with ADL's and independent with IADL's. Pt appeared able and motivated to follow up on recommendations as discussed. Social work interventions rendered under the supervision of Dr. Kaitlyn Friend, PhD, AMANDA Baxter, [facility] Social Work documented in this encounter [facility] 01-19-2024 Note HNO ID: [id number] Author: KAITLYN FORBES, power hammer operator Service: ? Author Type: Nursery Laborer Type: Progress Notes Filed: 01/19/2024 15:01 Note Text: Radiology Service Progress Note PATIENT NAME: Smooth Martinez DATE OF SERVICE: January 19, 2024 TIME: 3:00 PM PATIENT IDENTITY VERIFICATION COMPLETED USING TWO (2) IDENTIFIERS: Name and Date of confirmed by patient verbally. FALL SCREENING: Has the patient had 2 falls in the last year or 1 fall with injury or currently using an Ambulatory Assistive Device (Walker, Cane, Wheelchair, Crutches, etc.)? No PATIENT GENDER DATA: Female. status: : No status: NO. PATIENT RELEVANT IMPLANT DATA REVIEWED: Yes piercings PATIENT PRESENTS WITH AN IMPLANTABLE OR ATTACHED FOOD PACKER: No RADIOLOGY DEPARTMENT: MR; Exam(s) Completed: Spine: Thoracic spine 13cc dotarem existing l ac iv, Mt Johnson RN PERIPHERAL IV DATA: Site assessment: Clean,Dry and Intact, Site disposition Discontinued SIGNED BY: Kaitlyn Forbes, A.A.SAkash,RT (R) (CT)(MR) January 19, 2024 3:00 PM [facility] 01-19-2024 Note HNO ID: [id number] Author: SIXTO JOHNSON RN Service: Radiology Author Type: Registered Nurse Type: Progress Notes Filed: 01/19/2024 13:34 Note Text: Radiology Service Progress Note DATE OF SERVICE: January 19, 2024 TIME: 1:28 PM PATIENT WEIGHT: 125 LBS PATIENT IDENTITY VERIFICATION COMPLETED USING TWO (2) STANDARD IDENTIFIERS: Name and Date of confirmed by patient verbally. FALL SCREENING: Has the patient had 2 falls in the last year or 1 fall with injury or currently using an Ambulatory Assistive Device (Walker, Cane, Wheelchair, Crutches, etc.)? No PATIENT GENDER DATA: Female. status: : No status: NO. ALLERGIES: Reviewed and unchanged CONTRAST ALLERGY: No EXAM: MRI - CONTRAST TYPE: GROUP II IV SITE: Ambulatory: A peripheral IV was started in the Left antecubital site with a Angio cath: 22 gauge. and A Saline lock was inserted per protocol IV SITE APPEARANCE: Clean,Dry and Intact SIGNATURE: Sixto Johnson RN PATIENT NAME: Smooth Martinez DATE: January 19, 2024 TIME: 1:28 PM [facility] 01-19-2024 History of Present illness Narrative Radiology Service Progress Note DATE OF SERVICE: January 19, 2024 TIME: 1:28 PM PATIENT WEIGHT: 125 LBS PATIENT IDENTITY VERIFICATION COMPLETED USING TWO (2) STANDARD IDENTIFIERS: Name and Date of confirmed by patient verbally. FALL SCREENING: Has the patient had 2 falls in the last year or 1 fall with injury or currently using an Ambulatory Assistive Device (Walker, Cane, Wheelchair, Crutches, etc.)? No PATIENT GENDER DATA: Female. status: : No status: NO. ALLERGIES: Reviewed and unchanged CONTRAST ALLERGY: No EXAM: MRI - CONTRAST TYPE: GROUP II IV SITE: Ambulatory: A peripheral IV was started in the Left antecubital site with a Angio cath: 22 gauge. and A Saline lock was inserted per protocol IV SITE APPEARANCE: Clean,Dry and Intact SIGNATURE: Sixto Johnson RN PATIENT NAME: Smooth Martinez DATE: January 19, 2024 TIME: 1:28 PM Radiology Service Progress Note PATIENT NAME: Smooth Martinez DATE OF SERVICE: January 19, 2024 TIME: 3:00 PM PATIENT IDENTITY VERIFICATION COMPLETED USING TWO (2) IDENTIFIERS: Name and Date of confirmed by patient verbally. FALL SCREENING: Has the patient had 2 falls in the last year or 1 fall with injury or currently using an Ambulatory Assistive Device (Walker, Cane, Wheelchair, Crutches, etc.)? No PATIENT GENDER DATA: Female. status: : No status: NO. PATIENT RELEVANT IMPLANT DATA REVIEWED: Yes piercings PATIENT PRESENTS WITH AN IMPLANTABLE OR ATTACHED FOOD PACKER: No RADIOLOGY DEPARTMENT: MR; Exam(s) Completed: Spine: Thoracic spine 13cc dotarem existing l ac iv, Mt Johnson RN PERIPHERAL IV DATA: Site assessment: Clean,Dry and Intact, Site disposition Discontinued SIGNED BY: Omar AcostaASlava,RT (R) (CT)(MR) January 19, 2024 3:00 PM documented in this encounter [facility] 12-25-2023 Note HNO ID: [id number] Author: TOR HERNANDEZ APRN.HOST/HOSTESS Service: ? Author Type: Nurse Practitioner Type: Progress Notes Filed: 12/25/2023 12:09 Note Text: [facility] FOLLOWUP/ESTABLISHED PATIENT VISIT PRINCIPAL NEUROLOGIC DIAGNOSIS: Multiple Sclerosis DISEASE SUMMARY Date of onset: 03/2007 Date of diagnosis of MS: 03/2007 Disease course at onset: Relapsing-Remitting Current disease course: Progressive without relapses Previous disease therapies: - Betaseron [id number] - Copaxone [id number] - Tysabri 2009-Summer 2019 (stopped due to planned ) - Copaxone [id number] (during ) Current disease therapy: Ocrevus (since 02/28/21, most recent 09/25/23) Most recent MRI brain: 01/02/23 (stable) Most recent MRI cervical spine: 01/02/23 (stable) Most recent MRI thoracic spine: 07/23/2022 CSF: NA JCV: 02/14/2021 0.28, stratify negative Brief Disease History: - 2006 lower extremity numbness evolving over 3 weeks following occipital relase - [id number] recurrent OS ON - [id number] several relapses including L numbness, weakness, constipation, urinary urgency - 2019 R weakness and numbness needing a wheelchair, hospitalized at [facility] (off Tysabri x3 months due to planning ). Also had OD vision loss at this time. At this time also notes substantial mold exposure due to it being all over her apt (has since moved). CHIEF COMPLAINT: Follow-up on MS disease modifying therapy Usual treating team: Esther/David The patient is accompanied by her daughter. The patient was last seen 07/23/23, currently taking Ocrevus. Since the patient's last visit the patient reports overall feeling worse. Issues with current therapy: Tolerating medication without side effects. INTERVAL HISTORY: Not feeling any better but not feeling any worse Has a home health aide that comes for 8 hours a week - has her assistance through the disability board Helpful but she needs more assistance Previously we talked about home care PT, OT, and speech but she has been unable to pursue this due to a lot going on, insurance, etc Would significantly benefit from 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, ot, speech, sw, and city editor as she is home bound, 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 Her income is significantly limited and she is unable to provide care for both herself and her family due to her fatigue, muscle weakness, dexterity, and paresthesias Had a DANDC 11/28 due to heavy bleeding x 2 months, found a polyp/mass which was benign Was prescribed post op antibiotics At her follow up prescribed another course of antibiotics as they seemed to clear her chronic BV Working closely with OB for further evaluation Current ear and sinus infection which was treated with abx recently Otherwise denies recent illness or infection Legs continue to be very weak Is only taking tizanidine once a day if that, Having rare occasional shaniqua horses to legs Is not taking Ampyra anymore Denies falls Did meet with sleep medicine 08/2023, was previously prescribed trazodone which does not really help Is not sleeping well which is resulting in increased day time fatigue, gets easily fatigued Neuro-QoL Functions (higher=better functioning) Flowsheet Row Office Visit from 07/23/2023 in [facility] Office Visit from 01/17/2023 in [facility] Appointment from 01/15/2023 in [facility] Upper Extremity Domain T Score 28.29 31.35 [...] Flowsheet Row Office Visit from 07/23/2023 in [facility] Office Visit from 01/17/2023 in [facility] Appointment from 01/15/2023 in [facility] Sleep Domain T Score 69.2 68.89 61 [...] lower extremity (04/17/2021), Multiple sclerosis (HCC), Seizure (HCC), and Thyroid disease. She has no past medical history of Asthma, Blood dyscrasia, Breast disorder, Chlamydia, Chronic kidney disease, Complication of anesthesia, Coronary artery disease, Diabetes (HCC), Diabetes, gestational, Gonorrhea, Herpes simplex virus (HSV) infection, History of pre-eclampsia in prior , currently , HIV infection ([facility]), Hypertension, Infertility, female, Liver disease, Malignant hyperthermia due to anesthesia, Mental disorder, Placental abruption, depression, hemorrhage, Rh incompatibility, Sickle cell anemia ([facility]), Syphilis, or Systemic lupus erythematosus ([facility]). has a current medica (more content not included)... [facility] 12-25-2023 Miscellaneous Notes Spoke with Elizabeth from [facility] and accepted the patient for Home Care. Thank you for the referral of your patient to [facility]. At this time, we are unable to accommodate your patient's needs in a safe and timely fashion. In order to help your patient receive quality home care, we will assist in finding alternate staffing. I have forwarded the referral to [facility], and it is pending. I will notify you when we have an accepting agency. Thank you. Thank you for the referral of your patient to [facility]. At this time, we are unable to accommodate your patient's needs in a safe and timely fashion. In order to help your patient receive quality home care, we will assist in finding alternate staffing. I have forwarded the referral to [facility], and it is declined. I will notify you when we have an accepting agency. Thank you. Thank you for the referral of your patient to [facility]. At this time, we are unable to accommodate your patient's needs in a safe and timely fashion. In order to help your patient receive quality home care, we will assist in finding alternate staffing. I have forwarded the referral to [facility], and it is declined. I will notify you when we have an accepting agency. Thank you. documented in this encounter [facility] 12-25-2023 Instructions Tor Hernandez APRN.TREE - 12/25/2023 11:16 AM EST Take all antibiotics with food Make sure to eat PROBIOTICS (things like Yogurt) daily as the antibiotics are getting rid of all your bacteria both good and bad. So we need to give you the good bacteria for your stomach back so you don't get diarrhea, stomach illness We will put in for home care PT OT speech and social work and a home health aid Let us know if and when you desire to have additional children Take magnesium nightly to help with shaniqua horses The muscle relaxer Tizanidine (zanaflex) also helps with the shaniqua horses Schedule MRI brain and thoracic spine (orders given today for you to do locally) Follow up with [facility] social work Also call out to the MS Society: To talk about rent increase and your income discrepancy Follow up with Dr Janice Lane in the next 2-3 months documented in this encounter [facility] 12-25-2023 History of Present illness Narrative Images from the original note were not included. [facility] FOLLOWUP/ESTABLISHED PATIENT VISIT PRINCIPAL NEUROLOGIC DIAGNOSIS: Multiple Sclerosis DISEASE SUMMARY Date of onset: 03/2007 Date of diagnosis of MS: 03/2007 Disease course at onset: Relapsing-Remitting Current disease course: Progressive without relapses Previous disease therapies: - Betaseron [id number] - Copaxone - Tysabri 2009-Summer 2019 (stopped due to planned ) - Copaxone (during ) Current disease therapy: Ocrevus (since 02/28/21, most recent 09/25/23) Most recent MRI brain: 01/02/23 (stable) Most recent MRI cervical spine: 01/02/23 (stable) Most recent MRI thoracic spine: 07/23/2022 CSF: NA JCV: 02/14/2021 0.28, stratify negative Brief Disease History: - 2006 lower extremity numbness evolving over 3 weeks following occipital relase - 9464-7156 recurrent OS ON - 6797-4802 several relapses including L numbness, weakness, constipation, urinary urgency - 2019 R weakness and numbness needing a wheelchair, hospitalized at [facility] (off Tysabri x3 months due to planning ). Also had OD vision loss at this time. At this time also notes substantial mold exposure due to it being all over her apt (has since moved). CHIEF COMPLAINT: Follow-up on MS disease modifying therapy Usual treating team: Esther/David The patient is accompanied by her daughter. The patient was last seen 07/23/23, currently taking Ocrevus. Since the patient's last visit the patient reports overall feeling worse. Issues with current therapy: Tolerating medication without side effects. INTERVAL HISTORY: Not feeling any better but not feeling any worse Has a home health aide that comes for 8 hours a week - has her assistance through the disability board Helpful but she needs more assistance Previously we talked about home care PT, OT, and speech but she has been unable to pursue this due to a lot going on, insurance, etc Would significantly benefit from 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, ot, speech, sw, and city editor as she is home bound, 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 Her income is significantly limited and she is unable to provide care for both herself and her family due to her fatigue, muscle weakness, dexterity, and paresthesias Had a D&C 11/28 due to heavy bleeding x 2 months, found a polyp/mass which was benign Was prescribed post op antibiotics At her follow up prescribed another course of antibiotics as they seemed to clear her chronic BV Working closely with OB for further evaluation Current ear and sinus infection which was treated with abx recently Otherwise denies recent illness or infection Legs continue to be very weak Is only taking tizanidine once a day if that, Having rare occasional shaniqua horses to legs Is not taking Ampyra anymore Denies falls Did meet with sleep medicine 08/2023, was previously prescribed trazodone which does not really help Is not sleeping well which is resulting in increased day time fatigue, gets easily fatigued Neuro-QoL Functions (higher=better functioning) Flowsheet Row Office Visit from 07/23/2023 in [facility] Office Visit from 01/17/2023 in [facility] Appointment from 01/15/2023 in [facility] Upper Extremity Domain T Score 28.29 31.35 [...] Flowsheet Row Office Visit from 07/23/2023 in [facility] Office Visit from 01/17/2023 in [facility] Appointment from 01/15/2023 in [facility] Sleep Domain T Score 69.2 68.89 61 [...] Edema of lower extremity (04/17/2021), Multiple sclerosis ([facility]), Seizure ([facility]), and Thyroid disease. She has no past medical history of Asthma, Blood dyscrasia, Breast disorder, Chlamydia, Chronic kidney disease, Complication of anesthesia, Coronary artery disease, Diabetes ([facility]), Diabetes, gestational, Gonorrhea, Herpes simplex virus (HSV) infection, History of pre-eclampsia in prior , currently , HIV infection ([facility]), Hypertension, Infertility, female, Liver disease, Malignant hyperthermia due to anesthesia, Mental disorder, Placental abruption, depression, hemorrhage, Rh incompatibility, Sickle cell anemia ([facility]), Syphilis, or Systemic lupus erythematosus ([facility]). has a current medication list which includes the following prescription(s): cefdinir, ferrous sulfate, multiple vitamin-minerals, metronidazole, norethindrone (contraceptive), ergocalciferol (vitamin d2), ketoconazole, ketoconazole, trazodone, tizanidine, ocrelizumab, vitamin b complex, melatonin, fluticasone, norethindrone (contraceptive), vitamin b complex with [id number] renal vitamins, dalfampridine er, magnesium oxide, iv contrast, and amoxicillin. EXAM: BP 95/67 Pulse 87 Wt 56.8 kg (125 lb 3.5 oz) LMP 12/21/2023 (Exact Date) BMI 19.91 kg/m Multiple Sclerosis Performance Test Flowsheet Row Office Visit from 07/23/2023 in [facility] Office Visit from 01/17/2023 in [facility] Processing Speed Total Number Correct 52 51 [...] praxis, and higher intellectual function Affect: Normal Extraocular movements: choppy pursuits, end gaze nystagmus Facial movements: Intact bilaterally Speech: normal Muscle strength (#/5): Right Left Upper Extremity: Deltoids 5 5 Biceps 5- 5- Triceps 5 5 Mgmt Analyst 4- 4- Dorsal interossei 4- 4- Lower extremity: Iliopsoas 3 3 Quadriceps 4 4 Hamstrings 4 4 Tibialis anterior 3 3 Gastrocnemius 4 4 Coordination: Upper extremity dexterity and rapid movements: Impaired bilaterally Finger-nose: moderate dysmetria or incoordination are evident Heel-shankar: limited by pyramidal weakness Standard gait: wide-based, right hemiparetic. Assistive device: independent RESULTS: CBC + Diff Component Value Date WBC 3.96 09/25/2023 HB 12.5 09/25/2023 HCT 41.0 09/25/2023 PLT 179 09/25/2023 ABSLYMPH 2.63 09/25/2023 Vitamin D Component Value Date VITD25 39.6 01/17/2023 CMP Component Value Date AST 17 09/25/2023 GLUC 89 09/25/2023 BUN 14 09/25/2023 CREAT 0.95 09/25/2023 NA 141 09/25/2023 K 3.6 (L) 09/25/2023 CHLOR 106 (H) 09/25/2023 ALT 11 09/25/2023 MRI Results: Discrete MRI Results Component Value Date Brain New T2 Lesions None Site 01/02/2023 Brain New T2 Lesions None Site 01/02/2023 Brain Enhancing Lesions None 01/02/2023 Brain Enhancing Lesions None 01/02/2023 Cervical Spine New T2 Lesions None 01/02/2023 Cervical Spine New T2 Lesions None 01/02/2023 Cervical spine enhancing lesions None 01/02/2023 Cervical spine enhancing lesions None 01/02/2023 ASSESSMENT: Smooth Martinez is a 38 year old female with Multiple Sclerosis, on Ocrevus for DMT which she continues to tolerate well. She presents today for follow up. She denies any new neurological symptoms. On exam, she is significantly weaker to her bilateral legs since last visit and we will further evaluate for continued MS activity vs orthopedic changes that may be contributing, we will also resume Ampyra as she has not taken that in recent months. She continues to have difficulty with sleeping, daytime fatigue, generalized weakness, and cognitive dysfunction. At last visit we encouraged PT, OT, and speech therapy however this has not been done. We will resubmit for [facility] today and if unable to assist will work with MS Society and Social Work for providers close to her and for discussion on resources given she has significant financial restraints. She requires home care as she is unable to drive, has significant fatigue and weakness, and is immunomodified given her Ocrevus infusions for her MS. Remainder of plan as below, she is to follow up in 6 months or sooner if clinically indicated. MRI of the brain and/or spinal cord [...] change medical management. PLAN: - Continue Ocrevus - MRI brain and thoracic spine (patient was given orders to complete locally) - Resume Ampyra (refill sent) - Resume nightly magnesium (refill sent) - [facility] Care: PT, OT, CASH SURRENDER CALCULATOR, SW, INSPECTOR TESTER SORTER - Schedule with [facility] ROGELIO in the meantime - Connect with MS Society - Follow up with sleep medicine - Follow up with PCP re: discussion with Medicare provider about LE circulation? - Follow up in 6 months Office Visit on 12/25/23 MRI THORACIC SPINE WO/W IVCON CONSULT TO [facility] HOME Patient Health Education Discussed at Visit: Emotional Health/Wellness, Nutrition, Risks and Common side effects of MS medications, Stress management, Stretching, and Vitamin D supplementation Follow-up: In 6 months at [facility] or Virtual Visit with [facility] APC I spent a total of 50 minutes on the date of the service which included preparing to see the patient, [id number] patient care, completing clinical documentation, obtaining and/or reviewing separately obtained history, performing a medically appropriate examination, counseling and educating the patient/family/caregiver, and ordering medications, tests, or procedures. Tor Hernandez APRN.CNP [facility] for Multiple Sclerosis documented in this encounter [facility] 12-23-2023 History of Present illness Narrative HPI: Historian of HPI: patient and family Smooth Martinez is a 38 y.o. female who presents today to the Urgent Care with the following complaints and denials which have been present for 2 day(s) pt states she did vomit yesterday but has now stopped. C/O Denies Symptom Comments [x] [] Runny Nose [] [x] Difficulty Swallowing [] [x] Sore Throat [] [x] Cough [x] [] Ear Pain Left ear pain [] [x] Fever [] [x] Chills [x] [] Nasal Congestion [] [x] Myalgia [] [x] Sinus Pain [] [x] Sinus Pressure Additional Comments: pt has not taken any OTC medications ROS: A complete system ROS was performed and negative aside from the pertinent positives noted in the HPI and PE. IH Testing: The following tests were performed Rapid Flu Test Rapid COVID Test SEE TEST(S) ORDERS FOR RESULTS EXAMINATION General Examination: GENERAL EXAMINATION: alert, oriented, normal affect, well-appearing, in no acute distress, well developed, well nourished. HEAD: maxillary sinus tenderness EYES: sclera non-icteric. EARS: left TM is injected and bulging with A/F levels. Right TM clear and intact NOSE: congested with clear and yellow drainage ORAL CAVITY: mucosa moist no lesions. THROAT: erythematous with PND noted. NECK/THYROID: no carotid bruit. LYMPH NODES: no cervical adenopathy. HEART: no murmurs, regular rate and rhythm, S1, S2 normal. LUNGS: clear to auscultation bilaterally. EXTREMITIES: no edema, no cyanosis. NEUROLOGIC: alert and oriented. PSYCH: alert, oriented, cognitive function intact, cooperative with exam. HPI and documentation approved and amended as necessary by Dr. Gael Howard. Transcribed by Tor messer LPN-FARZANA 1. Cough, unspecified type Covid negative. Influenza negative. Results reviewed with patient. - STATUS COVID-19/FLU 2. Non-recurrent acute suppurative otitis media of left ear without spontaneous rupture of tympanic membrane Dx and tx reviewed with patient. Medication as directed. Push fluids. OTC ibuprofen/tylenol prn for pain/fever. [place] diet, advance as tolerated. Follow up with PCP. cefdinir (Omnicef) 300 MG capsule 3. Acute non-recurrent maxillary sinusitis Reviewed. 4. Vomiting, unspecified vomiting type, unspecified whether nausea present HCG negative. Results reviewed with patient. - POCT , urine manually resulted documented in this encounter [facility] 12-23-2023 Instructions Tor Gonzalez RN - 12/23/2023 1:30 PM EST See progress note documented in this encounter [facility] 12-11-2023 History of Present illness Narrative Reason for Appointment: Patient ID: Smooth Martinez is a 38 y.o. female who presents for Post-op Visit Patient presents today for 1 Week Post Op appointment. Current Medications: has a current medication list which includes the following prescription(s): b complex-vitamin c, cetirizine, doxycycline, ergocalciferol, ferrous sulfate, magnesium oxide, moxifloxacin, multivitamin, norethindrone, and trazodone. Medical History: Active Ambulatory Problems Diagnosis Date Noted No Active Ambulatory Problems Resolved Ambulatory Problems Diagnosis Date Noted No Resolved Ambulatory Problems Past Medical History: Diagnosis Date Hypocalcemia Hypoglycemia Low iron MS (multiple sclerosis) ([facility]) Family History Problem Relation Name Age of Onset Prostate cancer Father Multiple sclerosis Sister Diabetes Paternal Grandmother Alzheimer's disease Paternal Grandmother Prostate cancer Paternal Grandfather Social History Tobacco Use Smoking status: Never Smokeless tobacco: Not on file Substance Use Topics Alcohol use: Never Drug use: Never Past Surgical History: Procedure Laterality Date CERVICAL BIOPSY W/ LOOP ELECTRODE EXCISION 2007 COLONOSCOPY 2007 and 2018 WISDOM TOOTH EXTRACTION Allergies Allergen Reactions Gluten Meal Hives, Itching and Unknown Constipation Chest pain Boils Stomach upset chest pain, rashes, constipation Constipation Chest pain Boils Stomach upset chest pain, rashes, constipation Other reaction(s):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 MD [address] [place] [address], [place] [address] PCP - General Family Medicine 12/09/19 Pharmacy Technician Assistant Relationship Specialty Start Date End Date Janice Lane MD [address] [place] [address], [place] [address] PCP - General Family Medicine 12/09/19 Pharmacy Technician Assistant Relationship Specialty Start Date End Date Janice Lane MD [address] [place] [address], [place] [address] PCP - General Family Medicine 12/09/19 Pharmacy Technician Assistant Relationship Specialty Start Date End Date Janice Lane MD [address] [place] [address], [place] [address] PCP - General Family Medicine 12/09/19 Pharmacy Technician Assistant Relationship Specialty Start Date End Date Janice Lane MD [address] [facility] [place] [address] PCP - General Family Medicine 12/09/19 Pharmacy Technician Assistant Relationship Specialty Start Date End Date Janice Lane MD [address] [facility] [place] [address] PCP - General Family Medicine 12/09/19 Pharmacy Technician Assistant Relationship Specialty Start Date End Date Janice Lane MD [address] [facility] [place] [address] PCP - General Family Medicine 12/09/19 Pharmacy Technician Assistant Relationship Specialty Start Date End Date Janice Lane MD [address] [facility] [place] [address] PCP - General Family Medicine 12/09/19 Pharmacy Technician Assistant Relationship Specialty Start Date End Date Janice Lane MD [address] [facility] [place] [address] PCP - General Family Medicine 12/09/19 Pharmacy Technician Assistant Relationship Specialty Start Date End Date Janice Lane MD [address] [facility] [place] [address] PCP - General Family Medicine 12/09/19 Pharmacy Technician Assistant Relationship Specialty Start Date End Date Janice Lane MD [address] [facility] [place] [address] PCP - General Family Medicine 12/09/19 Pharmacy Technician Assistant Relationship Specialty Start Date End Date Janice Lane MD [address] [facility] [place] [address] PCP - General Family Medicine 12/09/19 Pharmacy Technician Assistant Relationship Specialty Start Date End Date Janice Lane MD [address] [facility] [place] [address] PCP - General Family Medicine 12/09/19 Pharmacy Technician Assistant Relationship Specialty Start Date End Date Janice Lane MD [address] [facility] [place] [address] PCP - General Family Medicine 12/09/19 Pharmacy Technician Assistant Relationship Specialty Start Date End Date Janice Lane MD [address] [facility] [place] [address] PCP - General Family Medicine 12/09/19 Pharmacy Technician Assistant Relationship Specialty [place] [address] [place] [address] PCP - General Pediatrics 10/26/23 Pharmacy Technician Assistant Relationship Specialty [place] [address] [place] [address] PCP - General Pediatrics 10/26/23 Pharmacy Technician Assistant Relationship Specialty Start Date End Date Janice Lane MD [address] [facility] [place] [address] PCP - General Family Medicine 12/09/19 Pharmacy Technician Assistant Relationship Specialty Start Date End Date Janice Lane MD [address] [facility] [place] [address] PCP - General Family Medicine 12/09/19 Pharmacy Technician Assistant Relationship Specialty Start Date End Date Janice Lane MD [address] [facility] [place] [address] PCP - General Family Medicine 12/09/19 Pharmacy Technician Assistant Relationship Specialty Start Date End Date Janice Lane MD [address] [facility] [place] [address] PCP - General Family Medicine 12/09/19 Pharmacy Technician Assistant Relationship Specialty Start Date End Date Janice Lane MD [address] [facility] [place] [address] PCP - General Family Medicine 12/09/19 Pharmacy Technician Assistant Relationship Specialty Start Date End Date Janice Lane MD [address] [facility] [place] [address] PCP - General Family Medicine 12/09/19 Pharmacy Technician Assistant Relationship Specialty Start Date End Date Janice Lane MD [address] [facility] [place] [address] PCP - General Family Medicine 12/09/19 Goals (unrecognized section and content) Goals may be documented in a n alternate sectionGoals may be documented in an alternate sectionGoals may be documented in an [...] BE BASED ON THE PRIMARY CLINICAL RECORDS. [facility] [employer] [facility]. provides no warranty or guarantee of the accuracy or completeness of information in this document.
== END 2024-02-23 21:04 | disposition home or self-care (01) ==
LOC: LAB 21:03
PROVIDERS: Visit Provider Obstetrics & Gynecology
DX: N64.52 Nipple discharge (principal)
CPT/HCPCS: 87070

== ENCOUNTER 2024-03-22 10:38 | Outpatient (OUT) | payer MEDICARE, MEDICAID, SELFPAY ==
[2024-03-22 14:30] LABS: HCG Quantitative 128570 mIU/mL
== END 2024-03-22 10:39 | disposition home or self-care (01) ==
LOC: LAB 10:39
PROVIDERS: Visit Provider Obstetrics & Gynecology
DX: N92.6 Irregular menstruation, unspecified (principal); Z32.01 Encounter for pregnancy test, result positive
CPT/HCPCS: 36415; 84702

== ENCOUNTER 2024-03-22 19:24 | Outpatient (REF) | payer MEDICARE, MEDICAID, SELFPAY ==
--- OUTSIDE RECORDS SUMMARY | 2024-03-22 19:31 | XMS_ITS | CCD ---
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 SPECIMENOrdering Facility: [facility] Address: [address] [place] [address] Result Comment: Anti -nuclear antibody test is used as an aid in diagnosis of systemic autoimmune diseases. Where positive and clinically warranted, follow-up using disease-specific testing is recommended. Low positive titers are not uncommon with advanced age, certain chronic infections, and malignancies among others. Test methodology: Indirect fluorescence immunoassay (IFA) using HEp-2 cells. Performed By: #### A NAIFR ####[facility] LABCLIA [id number] [place] [address] [place] CBC W Auto Differential pane l (Bld)on 03-04-2024 Basophils (Bld) [#/Vol] 0.04 10*3/uL NINF [facility] Basophils/100 WBC (Bld) 0.5 % [facility] Differential cell count method Nom (Bld) Auto [facility] Eosinophils (Bld) [#/Vol] [facility]F [facility] Eosinophils/100 WBC (Bld) 0.3 % [facility] Erythrocyte distribution width (RBC) [Ratio] 15.2 % High 11.5 - 15.0 % [facility] Hematocrit (Bld) [Volume fraction] 40.1 % 36.0 - 46.0 % [facility] Hemoglobin (Bld) [Mass/Vol] 12.4 g/dL 11.5 - 15.5 g/dL [facility] Immature granulocytes (Bld) [#/Vol] [facility] Immature granulocytes/100 WBC (Bld) 0.3 % [facility] Interpretation and review of laboratory results Abnormal [facility] Lymphocytes (Bld) [#/Vol] 1.62 10*3/uL [facility] Lymphocytes/100 WBC (Bld) 21.7 % [facility] MCH (RBC) [Entitic mass] 24.1 pg Low 26.0 - 34.[address] [facility] MCHC (RBC) [Mass/Vol] 30.9 g/dL 30.5 - 36.0 g/dL [facility] MCV (RBC) [Entitic vol] 77.9 fL Low 80.0 - 100.[address] [facility] Monocytes (Bld) [#/Vol] 0.69 10*3/uL [facility] Monocytes/100 WBC (Bld) 9.2 % [facility] Neutrophils (Bld) [#/Vol] 5.08 10*3/uL [facility] Neutrophils/100 WBC (Bld) 68.0 % [facility] Nucleated RBC (Bld) [#/Vol] [facility] Nucleated RBC/100 WBC (Bld) [Ratio] 0.0 % /[address] [facility] Platelet mean volume (Bld) [Entitic vol] [facility] Comment on above: Unable to Report. Platelets (Bld) [#/Vol] 185 10*3/uL [facility] Comment on above: Results checked and verified.No clot detected. RBC (Bld) [#/Vol] 5.15 10*6/uL 3.90 - 5.2 0 m/uL [facility] WBC (Bld) [#/Vol] 7.47 10*3/uL [facility] This is an appended report. These results have been appended to a previously verified report. [facility] Basophils (Bld) [#/Vol] 0.04 10*3/uL Normal <0.11 [facility] Comment on above: Order Comment: Speci men Type: BLOOD SPECIMENOrdering Facility: [facility] Address: [address] [place] [address] Performed By: #### 5 7021-8, 7-7 ####[facility] LABCLIA [id number] [facility] [place] [address] [place] Basophils/100 WBC (Bld) 0.5 % Normal [facility] Comment on above: Order Comment: Speci men Type: BLOOD SPECIMENOrdering Facility: [facility] Address: [address] [place] [address] Performed By: #### 5 7021-8, 4536-7 ####[facility] LABCLIA [id number] [place] [address] [place] Differential cell count method Nom (Bld) Auto Normal [facility] Comment on above: Order Comment: Speci men Type: BLOOD SPECIMENOrdering Facility: [facility] Address: [address] [place] [address] Performed By: #### 5 7021-8, 4536-7 ####[facility] LABCLIA [id number] [place] [address] [place] Eosinophils (Bld) [#/Vol] 10*3/uL Normal <0.46 [facility] Comment on above: Order Comment: Speci men Type: BLOOD SPECIMENOrdering Facility: [facility] Address: [address] [place] [address] Performed By: #### 5 7021-8, 4536-7 ####[facility] LABCLIA [id number] [facility] [address] [place] Eosinophils/100 WBC (Bld) 0.3 % Normal [facility] Comment on above: Order Comment: Speci men Type: BLOOD SPECIMENOrdering Facility: [facility] Address: [address] [place] [address] Performed By: #### 5 7021-8, 4536-7 ####[facility] LABCLIA [id number] [place] [address] [place] Erythrocyte distribution width (RBC) [Ratio] 15.2 % High 11.5-15.0 [facility] Comment on above: Order Comment: Speci men Type: BLOOD SPECIMENOrdering Facility: [facility] Address: [address] [place] [address] Performed By: #### 5 7021-8, 4536-7 ####[facility] LABIA [id number] [place] [address] [place] Hematocrit (Bld) [Volume fraction] 40.1 % Normal 36.0-46.0 [facility] Comment on above: Order Comment: Speci men Type: BLOOD SPECIMENOrdering Facility: [facility] Address: [address] [place] [address] Performed By: #### 5 7021-8, 4536-7 ####[facility] LABIA [id number] [place] [address] [place] Hemoglobin (Bld) [Mass/Vol] 12.4 g/dL Normal 11.5-15.5 [facility] Comment on above: Order Comment: Speci men Type: BLOOD SPECIMENOrdering Facility: [facility] Address: [address] [place] [address] Performed By: #### 5 7021-8, 4536-7 ####[facility] LABCLIA [id number] [place] [address] [place] Immature granulocytes (Bld) [#/Vol] 10*3/uL Normal <0.10 [facility] Comment on above: Order Comment: Speci men Type: BLOOD SPECIMENOrdering Facility: [facility] Address: [address] [place] [address] Performed By: #### 5 7021-8, 7-7 ####[facility] LABCLIA [id number] [place] [address] [place] Immature granulocytes/100 WBC (Bld) 0.3 % Normal [facility] Comment on above: Order Comment: Speci men Type: BLOOD SPECIMENOrdering Facility: [facility] Address: [address] [place] [address] Performed By: #### 5 7021-8, 7 ####[facility] LABCLIA [id number] [place] [address] [place] Lymphocytes (Bld) [#/Vol] 1.62 10*3/uL Normal 1.00-4.00 [facility] Comment on above: Order Comment: Speci men Type: BLOOD SPECIMENOrdering Facility: [facility] Address: [address] [place] [address] Performed By: #### 5 7021-8, 7 ####[facility] LABIA [id number] [place] [address] [place] Lymphocytes/100 WBC (Bld) 21.7 % Normal [facility] Comment on above: Order Comment: Speci men Type: BLOOD SPECIMENOrdering Facility: [facility] Address: [address] [place] [address] Performed By: #### 5 7021-8, 4536-7 ####[facility] LABCLIA [id number] [place] [address] [place] MCH (RBC) [Entitic mass] 24.1 pg Low 26.0-34.0 [facility] Comment on above: Order Comment: Speci men Type: BLOOD SPECIMENOrdering Facility: [facility] Address: [address] [place] [address] Performed By: #### 5 7021-8, 7-7 ####[facility] LABCLIA [id number] [place] [address] [place] MCHC (RBC) [Mass/Vol] 30.9 g/dL Normal 30.5-36.0 [facility] Comment on above: Order Comment: Speci men Type: BLOOD SPECIMENOrdering Facility: [facility] Address: [address] [place] [address] Performed By: #### 5 7021-8, 4537-7 ####[facility] LABCLIA [id number] [place] [address] [place] MCV (RBC) [Entitic vol] 77.9 fL Low 80.0-100.0 [facility] Comment on above: Order Comment: Speci men Type: BLOOD SPECIMENOrdering Facility: [facility] Address: [address] [place] [address] Performed By: #### 5 7021-8, 4537-7 ####[facility] LABCLIA [id number] [place] [address] [place] Monocytes (Bld) [#/Vol] 0.69 10*3/uL Normal <0.87 [facility] Comment on above: Order Comment: Speci men Type: BLOOD SPECIMENOrdering Facility: [facility] Address: [address] [place] [address] Performed By: #### 5 7021-8, 4537-7 ####[facility] LABCLIA [id number] [place] [address] [place] Monocytes/100 WBC (Bld) 9.2 % Normal [facility] Comment on above: Order Comment: Speci men Type: BLOOD SPECIMENOrdering Facility: [facility] Address: [address] [place] [address] Performed By: #### 5 7021-8, 4537-7 ####[facility] LABCLIA [id number] [place] [address] [place] Neutrophils (Bld) [#/Vol] 5.08 10*3/uL Normal 1.45-7.50 [facility] Comment on above: Order Comment: Speci men Type: BLOOD SPECIMENOrdering Facility: [facility] Address: [address] [place] [address] Performed By: #### 5 7021-8, 7-7 ####[facility] LABCLIA [id number] [place] [address] [place] Neutrophils/100 WBC (Bld) 68.0 % Normal [facility] Comment on above: Order Comment: Speci men Type: BLOOD SPECIMENOrdering Facility: [facility] Address: [address] [place] [address] Performed By: #### 5 7021-8, 4536-7 ####[facility] LABCLIA [id number] [place] [address] [place] Nucleated RBC (Bld) [#/Vol] 10*3/uL Normal <0.01 [facility] Comment on above: Order Comment: Speci men Type: BLOOD SPECIMENOrdering Facility: [facility] Address: [address] [place] [address] Performed By: #### 5 7021-8, 4536-7 ####[facility] LABCLIA [id number] [place] [address] [place] Nucleated RBC/100 WBC (Bld) [Ratio] 0.0 /100 WBC Normal [facility] Comment on above: Order Comment: Speci men Type: BLOOD SPECIMENOrdering Facility: [facility] Address: [address] [place] [address] Performed By: #### 5 7021-8, 4536-7 ####[facility] LABCLIA [id number] [place] [address] [place] Platelet mean volume (Bld) [Entitic vol] Normal [facility] Comment on above: Order Comment: Speci men Type: BLOOD SPECIMENOrdering Facility: [facility] Address: [address] [place] [address] Result Comment: Unab le to Report. Performed By: #### 5 7021-8, 4537-7 ####[facility] LABCLIA [id number] [place] [address] [place] Platelets (Bld) [#/Vol] 185 10*3/uL Normal 150-400 [facility] Comment on above: Order Comment: Speci men Type: BLOOD SPECIMENOrdering Facility: [facility] Address: [address] [place] [address] Result Comment: Resu lts checked and verified.No clot detected. Performed By: #### 5 7021-8, 4537-7 ####[facility] LABIA [id number] [place] [address] [place] RBC (Bld) [#/Vol] 5.15 10*6/uL Normal 3.90-5.20 [facility] Comment on above: Order Comment: Speci men Type: BLOOD SPECIMENOrdering Facility: [facility] Address: [address] [place] [address] Performed By: #### 5 7021-8, 4537-7 ####[facility] [id number] [place] [address] [place] WBC (Bld) [#/Vol] 7.47 10*3/uL Normal 3.70-11.00 [facility] Comment on above: Order Comment: Speci men Type: BLOOD SPECIMENOrdering Facility: [facility] Address: [address] [place] [address] Performed By: #### 5 7021-8, 4537-7 ####[facility] LABIA [id number] [place] [address] [place] CNOVon 03-04-2024 CNOV Office Visit ([facility] ) ----- SMOOTH MARTINEZ ([id number]) 1985 F Date Time Provider Department 03/04/24 1:[address] During your visit today, we recorded the following information about you: Temperature Pulse Blood pressure Weight 98.1 degrees 95/minute 101/66 55.7 kg Height 1.689 m Cintia Cadena MA 03/04/2024 1:00 PM Signed [facility] LAB FACTS Please visit our lab at least 3-5 days before your scheduled appointment to have your lab work drawn, if lab work is ordered. This will allow us the ability to review your lab work results with you during your scheduled visit. [facility]RS: Lab is open Friday - Friday from 6:30am to 5pm and open 8am -12pm on Saturdays. [facility] HOURS: Friday- 7:30am to 5:30pm. Fridays 7:30-5:00pm and Friday 8:00am to 12:00 pm. Routine Lab Orders 60 days after they are entered. If your lab orders , you may be required to wait in the lab while they are reinstated FUTURE ORDERS are lab tests to be completed on the ?EXPECTED? date. These orders 60 days after the expected date. STANDING ORDERS are recurring orders with an expiration date. The interval will indicate how often the test should be completed. [facility] LAB means nothing to eat or drink (except water) 10-12 hours before your blood is drawn. CT/MRI/IVP If you have one of these radiology exams ordered along with blood work, please complete the blood work at least one day prior to the scheduled exam. My Chart Schedule My Appointment enables you to view your established primary care provider's open schedule and book an appointment online in real-time. This feature is available in internal medicine, family medicine, or pediatrics at any of our [facility] locations and main campus. Janice Lane MD 03/04/2024 3:19 PM Signed Achzayda Martinez is a 38 year old female here for follow-up on insomnia. She said that trazodone does not help. She was seen by sleep medicine and advised to try melatonin which did not work either. She is scheduled for some type of sleep test. She was advised to schedule for cognitive behavioral therapy for insomnia but she has not scheduled yet. She said she still has a lot of stress in her life. She recently broke up with her boyfriend. Her sleep schedule is irregular. She denies feeling depressed. She feels very tired during the day but usually does not nap. Her mind races at night when she is trying to sleep. Patient says she gets all of her body aches off and on throughout the day. Mainly in her neck and low back. No swelling of the joints. No erythema or warmth. She is not particularly stiff in the mornings. She was wondering if she could be screened for different kinds of arthritis. No particular joints are hurting currently. She has a history of multiple sclerosis. HISTORY REVIEWED (electronic chart updated): - medical history - medications - allergies REVIEW OF SYSTEMS: GENERAL: feeling well without fatigue, no recent change in weight RESPIRATORY: no cough, no wheezing or shortness of breath CARDIOVASCULAR: no chest pain, no palpitations PHYSICAL EXAMINATION: BP 101/66 Pulse 95 Temp 36.7 ?C (98.1 ?F) (Temporal) Ht 168.9 cm (5' 6.5 ) Wt 55.7 kg (122 lb 12.7 oz) LMP 12/21/2023 (Exact Date) SpO2 100% BMI 19.52 kg/m? BMI 19.52 kg/(m2) General: alert and appropriate, in no distress, ambulates and transfers well, well-hydrated, well nourished Neck: supple with full ROM, no cervical [...] pulses, no clubbing, cyanosis, or edema ASSESSMENT: (F51.04) Chronic insomnia (primary encounter diagnosis) (G35) Multiple sclerosis (HCC) (E55.9) Vitamin D deficiency (M54.2) Neck pain (M54.50, G89.29) Chronic midline low back pain without sciatica PLAN: I encouraged the patient to schedule for cognitive behavioral therapy for insomnia and to follow-up with sleep medicine as scheduled. Give a trial of Remeron. MS is stable and managed by neurology. Check x-rays of the neck and the lumbar spine. Check lab work as ordered. Follow-up as scheduled for next physical. Patient Instructions [facility] LAB FACTS Please visit our lab at least 3-5 days before your scheduled appointment to have your lab work drawn, if lab work is ordered. This will allow us the ability to review your lab work results with you during your scheduled visit. [facility] MCGRATH (more content not included)... Normal [facility] CRP SerPl-mCncon 03-04-2024 CRP [Mass/Vol] mg/L Normal <0.9 [facility] Comment on above: Order Comment: Rylee chauhan Type: BLOOD SPECIMENOrdering Facility: [facility] Address: [address] [place] [address] Performed By: #### 2 276-4, 78712-5, 62284-5, 1988-03 ####[facility] LABCLIA [id number] [place] [address] [place] ESR Westergren method (Bld) [Velocity]on 03-04-2024 ESR (Bld) [Velocity] 5 mm/h Normal 0-20 [facility] Comment on above: Order Comment: Rylee chauhan Type: BLOOD SPECIMENOrdering Facility: [facility] Address: [address] [place] [address] Performed By: #### 5 7021-8, 4537-7 ####[facility] LABCLIA [id number] [place] [address] [place] Ferritin SerPl-mCncon 2023 Ferritin [Mass/Vol] 14.2 ng/mL Low 14.7-205.1 [facility] Comment on above: Order Comment: Speci men Type: BLOOD SPECIMENOrdering Facility: [facility] Address: [address] [place] [address] Performed By: #### 2 276-4, 55244-2, 15433-4, 1988-03 ####[facility] LABCLIA [id number] [place] [id number] [place] Iron and Iron binding capaci ty panelon 03-04-2024 Iron [Mass/Vol] 90 ug/dL Normal 41-186 [facility] Comment on above: Order Comment: Speci men Type: BLOOD SPECIMENOrdering Facility: [facility] Address: [address] [place] [address] Performed By: #### 2 276-4, 38847-6, , 1988-03 ####[facility] LABIA [id number] [place] [address] [place] Iron binding capacity [Mass/Vol] 351 ug/dL Normal 232-386 [facility] Comment on above: Order Comment: Speci men Type: BLOOD SPECIMENOrdering Facility: [facility] Address: [address] [place] [address] Performed By: #### 2 276-4, 12186-5, , 1988-03 ####[facility] LABIA [id number] [place] [address] [place] Iron/TIBC [Molar ratio] 25.6 % Normal 15.0-57.0 [facility] Comment on above: Order Comment: Speci men Type: BLOOD SPECIMENOrdering Facility: [facility] Address: [address] [place] [address] Performed By: #### 2 276-4, 93917-0, 40229-0, 1988-03 ####[facility] LABCLIA [id number] [place] [id number] [place] Rheumatoid fact SerPl-aCncon 03-04-2024 Rheumatoid factor Qn [IU]/mL Normal <[address] [facility] Comment on above: Order Comment: Speci men Type: BLOOD SPECIMENOrdering Facility: [facility] Address: [address] [place] [address] Performed By: #### 2 276-4, 24781-4, 17337-3, 1988- ####[facility] LABCLIA [id number] [address] OF [place] Urate SerPl-mCncon Urate [Mass/Vol] 3.1 mg/dL Normal 2.5-6.6 [facility] Comment on above: Order Comment: Speci men Type: BLOOD SPECIMEN [facility] Address: [address] [place] [address] Performed By: #### 2 1198-7 #### [facility] LAB CLIA [id number] [address] [place] [address] OF [place] XR CERVICAL 4V AP/LAT/OBLon 03-04-2024 XR CERVICAL 4V AP/LAT/OBL * * *Final Report* * * DATE OF EXAM: Mar 04 2024 2:13PM [id number] - XR CERVICAL 4V AP/LAT/OBL / PROCEDURE REASON: Neck pain * * * * Physician Interpretation * * * * EXAMINATION / TECHNIQUE: XR CERVICAL 4V AP/LAT/OBL PATIENT/TECHNOLOGIST PROVIDED HISTORY: neck pain and stiffness, R>L CLINICAL INFORMATION ( PROVIDED BY ORDERING CLINICIAN) : Neck pain COMPARISON: MR cervical spine 01/02/2023 RESULT: Counting reference: Craniocervical junction. Anatomic Variants: None. Reversal of the normal cervical lordosis. Mild right convex curvature. No significant spondylolisthesis. C1-C2 relationship is preserved. Vertebral body heights are preserved. No acute fracture is identified. Preserved disc spaces. Osseous neural foramina are patent. Nonspecific radiodensities projecting over the posterior and left lateral neck soft tissues, possibly external to the patient. IMPRESSION: No acute osseous abnormality. Preserved cervical disc spaces and neural foramina. Specialist Wound Care: ANGEL Transcribe Date/Time: Mar 08 2024 4:48P Dictated by : VIKTORIYA WALTER MD This examination was interpreted and the report reviewed and electronically signed by: VIKTORIYA WALTER MD on Mar 08 2024 4:50PM EST [id number] Normal [facility] XR LUMBAR 3V AP/LAT/L5-S1on 03-04-2024 XR LUMBAR 3V AP/LAT/L5-S1 * * *Final Report* * * DATE OF EXAM: Mar 04 2024 2:12PM [id number] - XR LUMBAR 3V AP/LAT/L5-S1 / PROCEDURE REASON: multiple diagnoses * * * * Physician Interpretation * * * * EXAMINATION / TECHNIQUE: XR LUMBAR 3V AP/LAT/L5-S1 PATIENT/TECHNOLOGIST PROVIDED HISTORY: lower back pain, no injury CLINICAL INFORMATION ( PROVIDED BY ORDERING CLINICIAN) : Chronic midline low back pain without sciatica Chronic midline low back pain without sciatica COMPARISON: None RESULT: Counting reference: Lumbosacral junction. For the purposes of this report, L4-5 is considered the level of the iliac crest and there are 5 lumbar-type vertebrae. Anatomic Variants: None. Normal lumbar lordosis. No significant curvature. No significant spondylolisthesis. Vertebral body heights are preserved. No acute fracture is identified. Preserved disc spaces. IMPRESSION: Unremarkable radiographic appearance of the lumbar spine. Specialist Wound Care: PSCB Transcribe Date/Time: Mar 08 2024 4:47P Dictated by : VIKTORIYA WALTER MD This examination was interpreted and the report reviewed and electronically signed by: VIKTORIYA WALTER MD on Mar 08 2024 4:48PM EST [id number] Normal [facility] A1C with Estimated Average G [facility] 02-24-2024 Glucose [Mass/Vol] 100 mg/dL Normal [facility] Comment on above: Result Comment: PERF ORMED BY: [facility] [address] [place] [address] PATHOLOGIST TECHNOLOGY SUPPORT ANALYST ALEN PRICE M.D. Performed By: #### H CGQNT, CBC, PT, T4F, A1C WTH eA, TSH3, PTT #### [facility] [address] HbA1c (Bld) [Mass fraction] 5.1 % Normal 4.3-5.6 [facility] Comment on above: Result Comment: Incr eased risk for diabetes: 5.7 - 6.4 diabetes: >6.4 glycemic control for adults with diabetes: <7.0 Performed By: #### H CGQNT, CBC, PT, T4F, A1C WTH eA, TSH3, PTT #### [facility] [address] Activated partial thrombopla stin time (aPTT) in platelet poor plasma by coagulation aOrdered By: Clarke Hu on 02-24-2024 aPTT Coag (PPP) [Time] 33.7 s 25.1-36.5 [facility] Comment on above: A hematocrit value g reater than 55% may lead to inaccurate results in coagulation testing. Patients having hematocrit values >55% require a special collection tube for coagulation studies. Please contact the laboratory at [phone] for redraw instructions. Basophils Auto (Bld) [#/Vol] Ordered By: Clarke Hu on 02-24-2024 Basophils (Bld) [#/Vol] 0.0 10*3/uL 0.0-0.2 [facility] Basophils/100 WBC Auto (Bld) Ordered By: Clarke Hu on 02-24-2024 Basophils/100 WBC (Bld) 0.5 % . [facility] CNPLilli 02-24-2024 CNPN Telephone (PENNYN) ----- SMOOTH MARTINEZ ([id number]) 1985 F Date Time Provider Department 02/24/24 TOR HERNANDEZ During your visit today, we recorded the following information about you: Shereen Scott 02/24/2024 2:33 PM Signed [place] Call Name of caller : Milady Relationship to patient: Barney Osorio Return call phone number : [phone] Reason for call : Other : Brief description of concern : The patient is not considered homebound and they are unable to admit the patient. Mirna Baxter LSW 02/26/2024 10:08 AM Signed Spoke with Fausto Urrutia CM, Iris Edge regarding this message. Iris stated she encouraged pt to reach out to her insurance company and request an insurance CM to help her find an outside provider to provide services. Request sent to Tor Hernandez APRN.CNP for orders: non-CCF outpatient PT, OT and SPT? Once she finds an outside provider, then CF can send the orders. DEZ Archer, [facility] Social Work Tor Hernandez APRN.CNP 02/26/2024 10:23 AM Signed Non-[facility]F PT, OT, and GENERAL PASSENGER AGENT orders placed Tor Hernandez APRN.CNP February 26, 2024 10:23 AM Tor Hernandez APRN.CNP 02/26/2024 10:24 AM Signed Addended by: TOR HERNANDEZ on: 02/26/2024 10:24 AM Modules accepted: Orders Allergies As of Date: 02/24/2024 Noted Allergy Reaction GLUTEN 03/19/2019 14 - [...] constipated Date Reviewed: 01/19/2024 Reviewed by: Kaitlyn Forbes MRI Tech - Fully Assessed Primary Visit Diagnosis:Multiple sclerosis (HCC) [G35] Order(s):CONSULT TO PHYSICAL THERAPY [9032] Order #: [id number]: 1 FUTURE CONSULT TO ELECTRIC RAZOR MECHANIC [932666] Order #: [id number]: 1 FUTURE CONSULT TO SPEECH THERAPY [9205699] Order #: [id number]: 1 FUTURE Prescriptions as of 02/26/2024 - Norethindrone, Contraceptive, 0.35 mg tablet Take [...] (FLONASE) 50 mcg/actuation nasal spray Use 1 [place] in each nostril once daily. Problem List As Of Date 02/24/2024 Noted Resolved Multiple sclerosis (HCC) [G35] 11/15/2019 [...] [M94.0] 04/17/2021 04/20/2021 Edema of lower extremity [R6 (more content not included)... Normal [facility] Choriogonadotropin.beta subu nit [Units/volume] in Serum or PlasmaOrdered By: Clarke Hu on 02-24-2024 HCG.beta subunit Qn 791.11 m[IU]/mL [facility] Comment on above: Approximate Approxim ate hCG Gestational Age Range (mIU/ml) (weeks)0.2-1 5-50 1-2 50-500 2-3 100-5,000 3-4 500-10,000 4-5 1,000-50,000 5-6 10,000-100,000 6-8 15,000-200,000 8-12 10,000-100,000 Complete Blood Count Auto Di ffon 02-24-2024 Basophils (Bld) [#/Vol] 0.0 10*3/uL Normal 0.0-0.2 [facility] Comment on above: Result Comment: PERF ORMED BY: [facility] [address] [place] [address] PATHOLOGIST TECHNOLOGY SUPPORT ANALYST ALEN PRICE M.D. Performed By: #### H CGQNT, CBC, PT, T4F, A1C WTH eA, TSH3, PTT #### [address] Basophils/100 WBC (Bld) 0.5 % Normal . [facility] Comment on above: Performed By: #### H CGQNT, CBC, PT, T4F, A1C WTH eA, TSH3, PTT #### [address] Eosinophils (Bld) [#/Vol] 0.0 10*3/uL Normal 0.0-0.45 [facility] Comment on above: Performed By: #### H CGQNT, CBC, PT, T4F, A1C WTH eA, TSH3, PTT #### [address] Eosinophils/100 WBC (Bld) 0.2 % Normal . [facility] Comment on above: Performed By: #### H CGQNT, CBC, PT, T4F, A1C WTH eA, TSH3, PTT #### [address] Erythrocyte distribution width (RBC) [Ratio] 15.2 % Normal 11.9-15.3 [facility] Comment on above: Performed By: #### H CGQNT, CBC, PT, T4F, A1C WTH eA, TSH3, PTT #### [address] Hematocrit (Bld) [Volume fraction] 36.9 % Normal 34.0-46.4 [facility] Comment on above: Performed By: #### H CGQNT, CBC, PT, T4F, A1C WTH eA, TSH3, PTT #### [address] Hemoglobin (Bld) [Mass/Vol] 11.7 g/dL Low 11.8-15.4 [facility] Comment on above: Performed By: #### H CGQNT, CBC, PT, T4F, A1C WTH eA, TSH3, PTT #### [address] Lymphocytes (Bld) [#/Vol] 2.1 10*3/uL Normal 1.00-4.8 [facility] Comment on above: Performed By: #### H CGQNT, CBC, PT, T4F, A1C WTH eA, TSH3, PTT #### [address] Lymphocytes/100 WBC (Bld) 26.9 % Normal . [facility] Comment on above: Performed By: #### H CGQNT, CBC, PT, T4F, A1C WTH eA, TSH3, PTT #### [address] MCH (RBC) [Entitic mass] 24.4 pg Low 24.7-34.3 [facility] Comment on above: Performed By: #### H CGQNT, CBC, PT, T4F, A1C WTH eA, TSH3, PTT #### [address] MCV (RBC) [Entitic vol] 76.5 fL Low 80-100 [facility] Comment on above: Performed By: #### H CGQNT, CBC, PT, T4F, A1C WTH eA, TSH3, PTT #### [address] Mean Corpuscular HGB Conc 31.8 g/dL Low 32.0-35.0 [facility] Comment on above: Performed By: #### H CGQNT, CBC, PT, T4F, A1C WTH eA, TSH3, PTT #### [address] Monocytes (Bld) [#/Vol] 0.7 10*3/uL Normal 0.0-0.8 [facility] Comment on above: Performed By: #### H CGQNT, CBC, PT, T4F, A1C WTH eA, TSH3, PTT #### [address] [place] [address] [place] Monocytes/100 WBC (Bld) 9.3 % Normal . [facility] Comment on above: Performed By: #### H CGQNT, CBC, PT, T4F, A1C WTH eA, TSH3, PTT #### [address] Neutrophils (Bld) [#/Vol] 5.0 10*3/uL Normal 1.8-7.7 [facility] Comment on above: Performed By: #### H CGQNT, CBC, PT, T4F, A1C WTH eA, TSH3, PTT #### [address] Neutrophils/100 WBC (Bld) 63.1 % Normal . [facility] Comment on above: Performed By: #### H CGQNT, CBC, PT, T4F, A1C WTH eA, TSH3, PTT #### [address] NRBC% 0.0 /100{WBC} Normal 0-0.5 [facility] Comment on above: Performed By: #### H CGQNT, CBC, PT, T4F, A1C WTH eA, TSH3, PTT #### [address] Platelet mean volume (Bld) [Entitic vol] 11.1 fL High 6.3-10.7 [facility] Comment on above: Performed By: #### H CGQNT, CBC, PT, T4F, A1C WTH eA, TSH3, PTT #### [place] [address] [place] Platelets (Bld) [#/Vol] 187 10*3/uL Normal 150-450 [facility] Comment on above: Performed By: #### H CGQNT, CBC, PT, T4F, A1C WTH eA, TSH3, PTT #### [address] RBC (Bld) [#/Vol] 4.82 10*6/uL Normal 3.60-5.00 [facility] Comment on above: Performed By: #### H CGQNT, CBC, PT, T4F, A1C WT eA, TSH3, PTT #### [facility] [address] WBC (Bld) [#/Vol] 7.9 10*3/uL Normal 3.8-11.6 [facility] Comment on above: Performed By: #### H CGQNT, CBC, PT, T4F, A1C WTH eA, TSH3, PTT #### [facility] [address] Eosinophils Auto (Bld) [#/Vo l]Ordered By: Clarke Hu on 02-24-2024 Eosinophils (Bld) [#/Vol] 0.0 10*3/uL 0.0-0.45 [facility] Eosinophils/100 WBC Auto (Bl d)Ordered By: Clarke Hu on 02-24-2024 Eosinophils/100 WBC (Bld) 0.2 % . [facility] Erythrocyte distribution wid th Auto (RBC) [Ratio]Ordered By: Clarke Hu on 02-24-2024 Erythrocyte distribution width (RBC) [Ratio] 15.2 % 11.9-15.3 [facility] Free T4 (Free Thyroxine)on 0 02-24-2024 Free T4 [Mass/Vol] 0.82 ng/dL Normal 0.61-1.12 [facility] Comment on above: Performed By: #### H CGQNT, CBC, PT, T4F, A1C WTH eA, TSH3, PTT #### [facility] [address] Glucose mean value [Mass/vol ume] in Blood Estimated from glycated hemoglobinOrdered By: Clarke Hu on 02-24-2024 Average glucose Estimated from glycated hemoglobin (Bld) [Mass/Vol] 100 mg/dL [facility] HCG,Quantitativeon 4 HCG,Quantitative 791.11 m[iU]/mL Normal [facility] Comment on above: Result Comment: Appr oximate Approximate hCG Gestational Age Range (mIU/ml) (weeks) 0.2-1 5-50 1-2 50-500 2-3 100-5,000 3-4 500-10,000 4-5 1,000-50,000 5-6 10,000-100,000 6-8 15,000-200,000 8-12 10,000-100,000 PERFORMED BY: [facility] [address] [place] [address] PATHOLOGIST TECHNOLOGY SUPPORT ANALYST ALEN PRICE M.D. Performed By: #### H CGQNT, CBC, PT, T4F, A1C WTH eA, TSH3, PTT #### [facility] [address] Hematocrit Auto (Bld) [Volum e fraction]Ordered By: Clarke Hu on 02-24-2024 Hematocrit (Bld) [Volume fraction] 36.9 % 34.0-46.4 [facility] Hemoglobin A1c percentageOrd ered By: Clarke Hu on 02-24-2024 HbA1c (Bld) [Mass fraction] 5.1 % 4.3-5.6 [facility] Comment on above: Increased risk for d iabetes: 5.7 - 6.4diabetes: >6.4glycemic control for adults with diabetes: <7.0 Hemoglobin [Mass/volume] in BloodOrdered By: Clarke Hu on 02-24-2024 Hemoglobin (Bld) [Mass/Vol] 11.7 g/dL 11.8-15.4 [facility] INR in Platelet poor plasma by Coagulation assayOrdered By: Clarke Hu on 02-24-2024 INR Coag (PPP) [Relative time] 1.1 {INR} [facility] Comment on above: INR Therapeutic Rang e A) Pre- and Peroperative OAT started two weeks before surgery. NOT HIP SURGERY: 1.5 - 2.5 HIP SURGERY: 2 - 3B) Primary and secondary prevention of venous THROMBOSIS: 2 - 3C) Active venous thrombosis, pulmonary embolismand prevention of recurrent venous thrombosis: 2 - 3D) Prevention of arterial thromboembolismincluding patients with mechanical heart valves: 3 - 4.5 Leukocytes [#/volume] correc che for nucleated erythrocytes in Blood by Automated counOrdered By: Clarke Hu on 02-24-2024 WBC corrected for nucl RBC Auto (Bld) [#/Vol] 7.9 10*3/uL 3.8-11.6 [facility] Lymphocytes Auto (Bld) [#/Vo l]Ordered By: Clarke Hu on 02-24-2024 Lymphocytes (Bld) [#/Vol] 2.1 10*3/uL 1.00-4.8 [facility] Lymphocytes/100 WBC Auto (Bl d)Ordered By: Clarke Hu on 02-24-2024 Lymphocytes/100 WBC (Bld) 26.9 % . [facility] MCH Auto (RBC) [Entitic mass ]Ordered By: Clarke Hu on 02-24-2024 MCH (RBC) [Entitic mass] 24.4 pg 24.7-34.3 [facility] MCHC Auto (RBC) [Mass/Vol]Or dered By: Clarke Hu on 02-24-2024 MCHC (RBC) [Mass/Vol] 31.8 g/dL 32.0-35.0 [facility] MCV Auto (RBC) [Entitic vol] Ordered By: Clarke Hu on 02-24-2024 MCV (RBC) [Entitic vol] 76.5 fL 80-100 [facility] Monocytes Auto (Bld) [#/Vol] Ordered By: Clarke Hu on 02-24-2024 Monocytes (Bld) [#/Vol] 0.7 10*3/uL 0.0-0.8 [facility] Monocytes/100 WBC Auto (Bld) Ordered By: Clarke Hu on 02-24-2024 Monocytes/100 WBC (Bld) 9.3 % . [facility] Neutrophils Auto (Bld) [#/Vo l]Ordered By: Clarke Hu on 02-24-2024 Neutrophils (Bld) [#/Vol] 5.0 10*3/uL 1.8-7.7 [facility] Neutrophils/100 WBC Auto (Bl d)Ordered By: Clarke Hu on 02-24-2024 Neutrophils/100 WBC (Bld) 63.1 % . [facility] Nucleated erythrocytes [Pres ence] in Blood by Automated countOrdered By: Clarke Hu on 02-24-2024 Nucleated RBC Auto Ql (Bld) 0.0 /100{WBC} 0-0.5 [facility] Partial Thromboplastin Timeo n 02-24-2024 aPTT Coag (Bld) [Time] 33.7 s Normal 25.1-36.5 [facility] Comment on above: Result Comment: A he matocrit value greater than 55% may lead to inaccurate results in coagulation testing. Patients having hematocrit values >55% require a special collection tube for coagulation studies. Please contact the laboratory at [phone] for redraw instructions. PERFORMED BY: [place] [address] PATHOLOGIST TECHNOLOGY SUPPORT ANALYST ALEN PRICE M.D. Performed By: #### H CGQNT, CBC, PT, T4F, A1C WTH eA, TSH3, PTT #### [facility] [address] [place] [address] Platelet mean volume Auto (B ld) [Entitic vol]Ordered By: Clarke Hu on 02-24-2024 Platelet mean volume (Bld) [Entitic vol] 11.1 fL 6.3-10.7 [facility] Platelets Auto (Bld) [#/Vol] Ordered By: Clarke Hu on 02-24-2024 Platelets (Bld) [#/Vol] 187 10*3/uL 150-450 [facility] Prothrombin Time INRon 02-23 INR Coag (PPP) [Relative time] 1.1 {INR} Normal [facility] Comment on above: Result Comment: INR Therapeutic Range A) Pre- and Peroperative OAT started two weeks before surgery. NOT HIP SURGERY: 1.5 - 2.5 HIP SURGERY: 2 - 3 B) Primary and secondary prevention of venous THROMBOSIS: 2 - 3 C) Active venous thrombosis, pulmonary embolism and prevention of recurrent venous thrombosis: 2 - 3 D) Prevention of arterial thromboembolism including patients with mechanical heart valves: 3 - 4.5 Performed By: #### H CGQNT, CBC, PT, T4F, A1C WTH eA, TSH3, PTT #### [facility] [address] [place], [place] [id number] [facility] PT Coag (PPP) [Time] 12.2 s Normal 9.0-12.9 [facility] Comment on above: Result Comment: A he matocrit value greater than 55% may lead to inaccurate results in coagulation testing. Patients having hematocrit values >55% require a special collection tube for coagulation studies. Please contact the laboratory at [phone] for redraw instructions. Performed By: #### H CGQNT, CBC, PT, T4F, A1C WTH eA, TSH3, PTT #### [facility] [address] [place] [address] [facility] Prothrombin time (PT)Ordered By: Clarke Hu on 02-24-2024 PT Coag (PPP) [Time] 12.2 s 9.0-12.9 [facility] Comment on above: A hematocrit value g reater than 55% may lead to inaccurate results in coagulation testing. Patients having hematocrit values >55% require a special collection tube for coagulation studies. Please contact the laboratory at [phone] for redraw instructions. RBC Auto (Bld) [#/Vol]Ordere d By: Clarke Hu on 02-24-2024 RBC (Bld) [#/Vol] 4.82 10*6/uL 3.60-5.00 [facility] Thyroid Stimulating Hormoneo n 02-24-2024 TSH Qn 0.96 m[IU]/L Normal 0.45-5.33 [facility] Comment on above: Performed By: #### H CGQNT, CBC, PT, T4F, A1C WTH eA, TSH3, PTT #### [facility] [address] [place] [id number] [facility] Thyrotropin [Units/volume] i n Serum or PlasmaOrdered By: Clarke Hu on 02-24-2024 TSH Qn 0.96 m[IU]/L 0.45-5.33 [facility] Thyroxine (T4) free [Mass/vo lume] in Serum or PlasmaOrdered By: Clarke Hu on 02-24-2024 Free T4 [Mass/Vol] 0.82 ng/dL 0.61-1.12 [facility] WBC Auto (Bld) [#/Vol]Ordere d By: Clarke Jameszio on 02-24-2024 WBC (Bld) [#/Vol] 7.9 10*3/uL 3.8-11.6 [facility] CNPNon 02-18-2024 CNPN Telephone (NEMSMN) ----- SMOOTH MARTINEZ ([id number]) 1985 F Date Time Provider Department 02/18/24 MIRNA BAXTER SAMEER During your visit today, we recorded the following information about you: Diana Garcia 02/18/2024 8:55 AM Signed Chris Call Name of caller : [facility] Relationship to patient: Self Return call phone number : [phone] Reason for call : Would like a [...] Date Reviewed: 01/19/2024 Reviewed by: Kaitlyn Forbes, immersion metalcleaner - Fully Assessed Reason for Visit: Patient [...] (FLONASE) 50 mcg/actuation nasal spray Use 1 [place] in each nostril once daily. Problem List [...] Status:Closed by MIRNA BAXTER on 02/18/24 [facility] (NEMSMN) ----- SMOOTH MARTINEZ ([id number]) 1985 F Date Time Provider Department 02/03/24 MIRNA BAXTER During your visit today, we recorded the following information about you: Clarice Zepeda HUC 02/03/2024 1:33 PM Signed Chris Call Name of caller : Iris Edge Relationship to patient: [facility] Return call phone number : [phone] Reason for call : Other : Brief description of concern : Has follow up questions Mirna Baxter LSW 02/04/2024 9:37 AM Signed Returned BROOKLYN Simmons's call. Iris stated pt was approved for a [facility] aide one day a week for 45 min to assist with additonal care needs. Iris is requesting an order from the doctor to start care. I will e-mail Iris the order when completed. DEZ Archer, [facility] Social Work Allergies As of Date: [...] constipated Date Reviewed: 01/19/2024 Reviewed by: Kaitlyn Forbes MRI Tech - Fully Assessed Reason for Visit: Patient Question [[id number]] Prescriptions as of 02/04/2024 - Norethindrone, Contraceptive, [...] (FLONASE) 50 mcg/actuation nasal spray Use 1 [place] in each nostril once daily. Problem List [...] Status:Closed by MIRNA BAXTER on 02/04/24 Normal [facility] MR Thoracic spine WO and W c ontrast Joe 01-19-2024 [facility] MRI THORACIC SPINE WO/W IVCO Non [...] identified to suggest active or progressive disease. Specialist Wound Care: [facility] Transcribe Date/Time: Jan 19 2024 3:31P Dictated by : LOVE WHARTON MD This examination was interpreted and the report reviewed and electronically signed by: LOVE WHARTON MD on Jan 19 2024 3:43PM EST [id number] Normal [facility] CNPLilli 01-05-2024 [facility] ----- SMOOTH MARTINEZ ([id number]) 1985 F Date Time Provider Department 01/05/24 [...] Date Reviewed: 12/25/2023 Reviewed by: Tor Hernandez APRN.SR. MANAGER MARKETING - Fully Assessed Reason for Visit: Appointment [...] (FLONASE) 50 mcg/actuation nasal spray Use 1 [place] in each nostril once daily. Problem List [...] Encounter Status:Closed by NADINE JAMES on 01/05/24 [facility] CNOVon 12-25-2023 CNOV Office Visit (NEMSMITUL ) ----- SMOOTH MARTINEZ ([id number]) 1985 F Date Time Provider Department 12/25/23 11:00 AM TOR HERNANDEZ During your visit today, we recorded the following information about you: Pulse Blood pressure Weight Last Period 87/minute 95/67 56.8 kg 12/21/23 Tor Hernandez APRN.SR. MANAGER MARKETING 12/25/2023 12:09 PM [facility] FOLLOWUP/ESTABLISHED PATIENT VISIT PRINCIPAL NEUROLOGIC DIAGNOSIS: Multiple Sclerosis DISEASE SUMMARY Date of onset: 03/2007 Date of diagnosis of MS: 03/2007 Disease course at onset: Relapsing-Remitting Current disease course: Progressive without relapses Previous disease therapies: - Betaseron 2925-2034 - Copaxone 9238-7278 - Tysabri 2009-Summer 2019 (stopped due to [...] over 3 weeks following occipital relase - 8415-3818 recurrent OS ON - [id number] several relapses including L numbness, weakness, constipation, urinary urgency - 2019 R weakness and numbness needing a wheelchair, hospitalized at [facility] (off Tysabri x3 months due to planning ). Also had OD vision loss at this time. At this time also notes substantial mold exposure due to it being all over her apt (has since moved). CHIEF COMPLAINT: Follow-up on MS disease modifying therapy Usual treating team: Christina The patient is accompanied by her daughter. [...] 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, ot, speech, sw, and shaft sinker as she is home bound, is unable [...] Flowsheet Row Office Visit from 07/23/2023 in [facility] Office Visit from 01/17/2023 in [facility] Appointment from 01/15/2023 in [facility] Upper Extremity Domain T Score 28.29 31.35 [...] Flowsheet Row Office Visit from 07/23/2023 in [facility] Office Visit from 01/17/2023 in [facility] Appointment from 01/15/2023 in [facility] Sleep Domain T Score 69.2 68.89 61 [...] Edema of lower extremity (04/17/2021), Multiple sclerosis ([facility]), Seizure ([facility]), and Thyroid disease. She has no past medical history of Asthma, Blood dyscrasia, Breast disorder, Chlamydia, Chronic kidney disease, Complication of anesthesia, Coronary artery disease, Diabetes ([facility]), Diabetes, gestational, Gonorrhea, Herpes simplex virus (HSV) infection, History of pre-eclampsia in prior , currently , HIV infection (HCC), Hypertension, Infertility, female, L (more content not included)... Normal [facility] Christiano 12-25-2023 CNPN Telephone (HCSIND) ----- MARTINEZSMOOTH GREWAL ([id number]) 1985 F Date Time Provider Department 12/25/23 TIKI ELLIOTT HCSIND During your visit today, we recorded the following information about you: Tiki Elliott 12/25/2023 2:08 PM Addendum Spoke with Elizabeth from [facility] and accepted the patient for Home Care. Thank you for the referral of your patient to [facility]. At this time, we are unable to accommodate your patient's needs in a safe and timely fashion. In order to help your patient receive quality home care, we will assist in finding alternate staffing. I have forwarded the referral to [facility], and it is pending. I will notify you when we have an accepting agency. Thank you. Thank you for the referral of your patient to [facility]. At this time, we are unable to accommodate your patient's needs in a safe and timely fashion. In order to help your patient receive quality home care, we will assist in finding alternate staffing. I have forwarded the referral to [facility], and it is declined. I will notify you when we have an accepting agency. Thank you. Thank you for the referral of your patient to [facility]. At this time, we are unable to accommodate your patient's needs in a safe and timely fashion. In order to help your patient receive quality home care, we will assist in finding alternate staffing. I have forwarded the referral to [facility], and it is declined. I will [...] Date Reviewed: 12/25/2023 Reviewed by: Tor Hernandez APRN.SR. MANAGER MARKETING - Fully Assessed Reason for Visit: Home [...] (FLONASE) 50 mcg/actuation nasal spray Use 1 [place] in each nostril once daily. Problem List As Of Date 12/25/2023 Noted Resolved Multiple sclerosis (HCC) [G35] 11/15/2019 Chronic insomnia [F51.04] 01/04/2020 AMA (advanced maternal age) primigravida 35+, s*2020 01/11/2021 History of loop electrosurgical excision proced*2020 01/11/2021 Poor growth affecting (more content not included)... Normal [facility] HCG ( test) Ql (U)o n 12-23-2023 Interpretation and review of laboratory results Normal [facility] Preg Test, Ur Negative [facility] - Microbiology an d Antimicrobial susceptibilityon 12-23-2023 SARS-CoV-2 (COVID-19) RNA DEIRDRE+probe Ql (Unsp spec) Negative [facility] No Panel Informationon 12-23 FLU A Negative [facility] FLU B Negative [facility] Interpretation and review of laboratory results Normal [facility] Toño 11-28-2023 L Specimen: [id number] Received: 11/28/23-0 Status: ALLISON See Num: [id number] Spec Type: Surgical Subm Dr: Clarke Hu Tissues: A Endometrium - Curettings ([facility]) Procedures: HE/2, Gross/Micro L4 Age/ Patient Sex Location Account Attending Physician Smooth Martinez 38/F LABELL [id number] Clarke Hu SPEC NUM: [id number] RECD: 11/28/23 STATUS: CHAPINCITOLibby SEE NUM: [id number] ALLAN: 11/28/[address]: Clarke Hu ENTERED: 11/28/23 [facility] DR: Sherry,Vickey SPEC TYPE: Surgical DEPT: IDRIS NICKERSON ORDERED: [...] in one cassette labeled A1. CPT Codes 02419 Specimen: BS Received: 11/28/23 Status: ALLISON Car Num: [id number] Spec Type: Surgical Subm Dr: Clarke Hu Tissues: A Endometrium - Curettings (EMC) Procedures: HE/2, Gross/Micro L4 Patient: Smooth Martinez [id number] (Continued) Signed (signature on file) Edu Watkins MD 12/01/232158 [place] [facility] 10-13-2023 [facility] Social Work (HEMASA) ----- SMOOTH MARTINEZ ([id number]) 1985 F Date Time Provider Department 10/13/23 ALEXANDRA HOGAN During your visit today, we recorded the following information about you: Alexandra Hogan LSW 10/13/2023 10:52 AM Signed Patient appears on the First Time Treatment List for a non-oncology treatment. No psychosocial assessment is indicated. GERRY Ambrocio-Kvng Allergies As of Date: 10/13/2023 Noted Allergy [...] (FLONASE) 50 mcg/actuation nasal spray Use 1 [place] in each nostril once daily. Problem List [...] Status:Closed by ALEXANDRA HOGAN on 10/13/23 Normal [facility] CBC W Auto Differential pane l (Bld)on 09-25-2023 Basophils (Bld) [#/Vol] 0.03 10*3/uL Normal <0.11 [facility] Comment on above: Order Comment: Speci men Type: BLOOD SPECIMENOrdering Facility: [facility] Address: [address] [place] [address] Performed By: #### 5 7021-8 ####[facility] LABCLIA [id number] [place] [address] Basophils/100 WBC (Bld) 0.8 % Normal [facility] Comment on above: Order Comment: Speci men Type: BLOOD SPECIMENOrdering Facility: [facility] Address: [address] [place] [address] Performed By: #### 5 7021-8 ####[facility] LABCLIA [id number] [place] [address] Differential cell count method Nom (Bld) Auto Normal [facility] Comment on above: Order Comment: Speci men Type: BLOOD SPECIMENOrdering Facility: [facility] Address: [address] [place] [address] Performed By: #### 5 7021-8 ####[facility] LABCLIA [id number] [place] [address] Eosinophils (Bld) [#/Vol] 0.07 10*3/uL Normal <0.46 [facility] Comment on above: Order Comment: Speci men Type: BLOOD SPECIMENOrdering Facility: [facility] Address: [address] [place] [address] Performed By: #### 5 7021-8 ####[facility] LABCLIA [id number] [place] [address] Eosinophils/100 WBC (Bld) 1.8 % Normal [facility] Comment on above: Order Comment: Speci men Type: BLOOD SPECIMENOrdering Facility: [facility] Address: [address] [place] [address] Performed By: #### 5 7021-8 ####[facility] LABCLIA [id number] [place] [address] Erythrocyte distribution width (RBC) [Ratio] 17.1 % High 11.5-15.0 [facility] Comment on above: Order Comment: Speci men Type: BLOOD SPECIMENOrdering Facility: [facility] Address: [address] [place] [address] Performed By: #### 5 7021-8 ####[facility] LABCLIA [id number] [place] [address] Hematocrit (Bld) [Volume fraction] 41.0 % Normal 36.0-46.0 [facility] Comment on above: Order Comment: Speci men Type: BLOOD SPECIMENOrdering Facility: [facility] Address: [address] [place] [address] Performed By: #### 5 7021-8 ####[facility] LABCLIA [id number] [place] [address] Hemoglobin (Bld) [Mass/Vol] 12.5 g/dL Normal 11.5-15.5 [facility] Comment on above: Order Comment: Speci men Type: BLOOD SPECIMENOrdering Facility: [facility] Address: [address] [place] [address] Performed By: #### 5 7021-8 ####[facility] LABCLIA [id number] [place] [address] Immature granulocytes (Bld) [#/Vol] 10*3/uL Normal <0.10 [facility] Comment on above: Order Comment: Speci men Type: BLOOD SPECIMENOrdering Facility: [facility] Address: [address] [place] [address] Performed By: #### 5 7021-8 ####[facility] LABCLIA [id number] [place] [address] Immature granulocytes/100 WBC (Bld) 0.0 % Normal [facility] Comment on above: Order Comment: Speci men Type: BLOOD SPECIMENOrdering Facility: [facility] Address: [address] [place] [address] Performed By: #### 5 7021-8 ####[facility] LABCLIA [id number] [place] [address] Lymphocytes (Bld) [#/Vol] 2.63 10*3/uL Normal 1.00-4.00 [facility] Comment on above: Order Comment: Speci men Type: BLOOD SPECIMENOrdering Facility: [facility] Address: [address] [place] [address] Performed By: #### 5 7021-8 ####[facility] LABCLIA [id number] [place] [address] Lymphocytes/100 WBC (Bld) 66.4 % Normal [facility] Comment on above: Order Comment: Speci men Type: BLOOD SPECIMENOrdering Facility: [facility] Address: [address] [place] [address] Performed By: #### 5 7021-8 ####[facility] LABCLIA [id number] [place] [address] MCH (RBC) [Entitic mass] 23.7 pg Low 26.0-34.0 [facility] Comment on above: Order Comment: Speci men Type: BLOOD SPECIMENOrdering Facility: [facility] Address: [address] [place] [address] Performed By: #### 5 7021-8 ####[facility] LABCLIA [id number] [place] [address] MCHC (RBC) [Mass/Vol] 30.5 g/dL Normal 30.5-36.0 [facility] Comment on above: Order Comment: Speci men Type: BLOOD SPECIMENOrdering Facility: [facility] Address: [address] [place] [address] Performed By: #### 5 7021-8 ####[facility] LABCLIA [id number] [place] [address] MCV (RBC) [Entitic vol] 77.7 fL Low 80.0-100.0 [facility] Comment on above: Order Comment: Speci men Type: BLOOD SPECIMENOrdering Facility: [facility] Address: [address] [place] [address] Performed By: #### 5 7021-8 ####[facility] LABCLIA [id number] [place] [address] Monocytes (Bld) [#/Vol] 0.51 10*3/uL Normal <0.87 [facility] Comment on above: Order Comment: Speci men Type: BLOOD SPECIMENOrdering Facility: [facility] Address: [address] [place] [address] Performed By: #### 5 7021-8 ####[facility] LABCLIA [id number] [place] [address] Monocytes/100 WBC (Bld) 12.9 % Normal [facility] Comment on above: Order Comment: Speci men Type: BLOOD SPECIMENOrdering Facility: [facility] Address: [address] [place] [address] Performed By: #### 5 7021-8 ####[facility] LABCLIA [id number] [place] [address] Neutrophils (Bld) [#/Vol] 0.72 10*3/uL Low 1.45-7.50 [facility] Comment on above: Order Comment: Speci men Type: BLOOD SPECIMENOrdering Facility: [facility] Address: [address] [place] [address] Performed By: #### 5 7021-8 ####[facility] LABCLIA [id number] [place] [address] Neutrophils/100 WBC (Bld) 18.1 % Normal [facility] Comment on above: Order Comment: Speci men Type: BLOOD SPECIMENOrdering Facility: [facility] Address: [address] [place] [address] Performed By: #### 5 7021-8 ####[facility] LABCLIA [id number] [place] [address] Nucleated RBC (Bld) [#/Vol] 10*3/uL Normal <0.01 [facility] Comment on above: Order Comment: Speci men Type: BLOOD SPECIMENOrdering Facility: [facility] Address: [address] [place] [address] Performed By: #### 5 7021-8 ####[facility] LABCLIA [id number] [place] [address] Nucleated RBC/100 WBC (Bld) [Ratio] 0.0 /100 WBC Normal [facility] Comment on above: Order Comment: Speci men Type: BLOOD SPECIMENOrdering Facility: [facility] Address: [address] [place] [address] Performed By: #### 5 7021-8 ####[facility] LABCLIA [id number] [place] [address] Platelet mean volume (Bld) [Entitic vol] Normal [facility] Comment on above: Order Comment: Speci men Type: BLOOD SPECIMENOrdering Facility: [facility] Address: [address] [place] [address] Result Comment: Unab le to Report. Performed By: #### 5 7021-8 ####[facility] LABCLIA [id number] [place] [address] Platelets (Bld) [#/Vol] 179 10*3/uL Normal 150-400 [facility] Comment on above: Order Comment: Speci men Type: BLOOD SPECIMENOrdering Facility: [facility] Address: [address] [place] [address] Result Comment: Resu lts checked and verified.No clot detected. Performed By: #### 5 7021-8 ####[facility] LABCLIA [id number] [place] [address] RBC (Bld) [#/Vol] 5.28 10*6/uL High 3.90-5.20 [facility] Comment on above: Order Comment: Speci men Type: BLOOD SPECIMENOrdering Facility: [facility] Address: [place] [address] Performed By: #### 5 7021-8 ####[facility] LABCLIA [id number] [place] [address] WBC (Bld) [#/Vol] 3.96 10*3/uL Normal 3.70-11.00 [facility] Comment on above: Order Comment: Speci men Type: BLOOD SPECIMENOrdering Facility: [facility] Address: [address] [place] [address] Performed By: #### 5 7021-8 ####[facility] LABCLIA [id number] [place] [address] Basophils (Bld) [#/Vol] 0.03 10*3/uL <0.11 k/uL [facility] Basophils/100 WBC (Bld) 0.8 % [facility] Differential cell count method Nom (Bld) Auto [facility] Eosinophils (Bld) [#/Vol] 0.07 10*3/uL <0.46 k/uL [facility] Eosinophils/100 WBC (Bld) 1.8 % [facility] Erythrocyte distribution width (RBC) [Ratio] 17.1 % High 11.5 - 15.0 % [facility] Hematocrit (Bld) [Volume fraction] 41.0 % 36.0 - 46.0 % [facility] Hemoglobin (Bld) [Mass/Vol] 12.5 g/dL 11.5 - 15.5 g/dL [facility] Immature granulocytes (Bld) [#/Vol] <0.10 k/uL [facility] Immature granulocytes/100 WBC (Bld) 0.0 % [facility] Lymphocytes (Bld) [#/Vol] 2.63 10*3/uL 1.00 - 4.00 k/uL [facility] Lymphocytes/100 WBC (Bld) 66.4 % [facility] MCH (RBC) [Entitic mass] 23.7 pg Low 26.0 - 34.[address] [facility] MCHC (RBC) [Mass/Vol] 30.5 g/dL 30.5 - 36.0 g/dL [facility] MCV (RBC) [Entitic vol] 77.7 fL Low 80.0 - 100.[address] [facility] Monocytes (Bld) [#/Vol] 0.51 10*3/uL <0.87 k/uL [facility] Monocytes/100 WBC (Bld) 12.9 % [facility] Neutrophils (Bld) [#/Vol] 0.72 10*3/uL Low 1.45 - 7.50 k/uL [facility] Neutrophils/100 WBC (Bld) 18.1 % [facility] Nucleated RBC (Bld) [#/Vol] <0.01 k/uL [facility] Nucleated RBC/100 WBC (Bld) [Ratio] 0.0 /[address] [facility] Platelet mean volume (Bld) [Entitic vol] [facility] Platelets (Bld) [#/Vol] 179 10*3/uL 150 - 400 k/uL [facility] RBC (Bld) [#/Vol] 5.28 10*6/uL High 3.90 - 5.2 0 m/uL [facility] WBC (Bld) [#/Vol] 3.96 10*3/uL 3.70 - 11. 00 k/uL [facility] CD19 ABSOLUTE COUNTon 2022 CD3-CD19+ cells (Bld) [#/Vol] 0 cells/uL Low 75-660 [facility] Comment on above: Order Comment: Speci men Type: BLOOD SPECIMEN [facility] Address: [address] [place] [address] Performed By: #### 2 1198-7 #### [facility] CLIA [id number] [address] [place] CD3-CD19+ cells/100 cells (Bld) 0 % Low 5-22 [facility] Comment on above: Order Comment: Speci men Type: BLOOD SPECIMEN [facility] Address: [address] [place] [address] Performed By: #### 2 1198-7 #### [facility] CLIA [id number] [address] [facility] [place] [address] [place] Lymphocytes/100 WBC FC (Bld) Normal [facility] Comment on above: Order Comment: Speci men Type: BLOOD SPECIMEN [facility] Address: [address] [place] [address] Performed By: #### 2 1198-7 #### [facility] CLIA [id number] [address] [facility] [address] [place] CNPNon 09-25-2023 CNPN Telephone (HEMTSA) ----- SMOOTH MARTINEZ F ([id number]) 1985 F Date Time Provider Department 09/25/23 KATHERYN ESPINO During your visit today, we recorded the following information about you: Katheryn Espino RN 09/25/2023 10:40 AM Signed Smooth is in our [facility] for her Ocrevus today. I just [...] [D70.2] Order(s):CBC + DIFF [SQCBCDIF] Order #: [id number] FUTURE Prescriptions as of 09/29/2023 - metroNIDAZOLE [...] (FLONASE) 50 mcg/actuation nasal spray Use 1 [place] in each nostril once daily. Problem List [...] Status:Closed by KATHERYN ESPINO on 09/29/23 Normal [facility] metabolic 2000 panelon 09-25-2023 Albumin [Mass/Vol] 4.5 g/dL Normal 3.9-4.9 [facility] Comment on above: Order Comment: Speci men Type: BLOOD SPECIMENOrdering Facility: [facility] Address: [address] [place] [address] Performed By: #### 2 4323-8 ####[facility] LABCLIA [id number] [place] [address] ALP [Catalytic activity/Vol] 58 U/L Normal 34-123 [facility] Comment on above: Order Comment: Speci men Type: BLOOD SPECIMENOrdering Facility: [facility] Address: [address] [place] [address] Performed By: #### 2 4323-8 ####[facility] LABCLIA [id number] [place] [address] ALT [Catalytic activity/Vol] 11 U/L Normal 7-38 [facility] Comment on above: Order Comment: Speci men Type: BLOOD SPECIMENOrdering Facility: [facility] Address: [address] [place] [address] Performed By: #### 2 4323-8 ####[facility] LABCLIA [id number] [place] [address] Anion gap [Moles/Vol] 9 mmol/L Normal 9-18 [facility] Comment on above: Order Comment: Speci men Type: BLOOD SPECIMENOrdering Facility: [facility] Address: [address] [place] [address] Performed By: #### 2 4323-8 ####[facility] LABCLIA [id number] [place] [address] AST [Catalytic activity/Vol] 17 U/L Normal 13-35 [facility] Comment on above: Order Comment: Speci men Type: BLOOD SPECIMENOrdering Facility: [facility] Address: [address] [place] [address] Performed By: #### 2 4323-8 ####[facility] LABCLIA [id number] [place] [address] Bilirubin [Mass/Vol] 0.5 mg/dL Normal 0.2-1.3 [facility] Comment on above: Order Comment: Speci men Type: BLOOD SPECIMENOrdering Facility: [facility] Address: [address] [place] [address] Performed By: #### 2 4323-8 ####[facility] LABCLIA [id number] [place] [address] Calcium [Mass/Vol] 9.5 mg/dL Normal 8.5-10.2 [facility] Comment on above: Order Comment: Speci men Type: BLOOD SPECIMENOrdering Facility: [facility] Address: [address] [place] [address] Performed By: #### 2 4323-8 ####[facility] LABCLIA [id number] [place] [address] Chloride [Moles/Vol] 106 mmol/L High 97-105 [facility] Comment on above: Order Comment: Speci men Type: BLOOD SPECIMENOrdering Facility: [facility] Address: [address] [place] [address] Performed By: #### 2 4323-8 ####[facility] LABCLIA [id number] [place] [address] CO2 [Moles/Vol] 26 mmol/L Normal 22-30 [facility] Comment on above: Order Comment: Speci men Type: BLOOD SPECIMENOrdering Facility: [facility] Address: [address] [place] [address] Performed By: #### 2 4323-8 ####[facility] LABCLIA [id number] [place] [address] Creatinine [Mass/Vol] 0.95 mg/dL Normal 0.58-0.96 [facility] Comment on above: Order Comment: Speci men Type: BLOOD SPECIMENOrdering Facility: [facility] Address: [address] [place] [address] Performed By: #### 2 4323-8 ####[facility] LABCLIA [id number] [place] [address] Creatinine and Glomerular filtration rate.predicted panel (S/P/Bld) 79 mL/min/1.73m??? Normal >=60 [facility] Comment on above: Order Comment: Rylee men Type: BLOOD SPECIMENOrdering Facility: [facility] Address: [address] [place] [address] Result Comment: Priscila mated Glomerular Filtration Rate [...] actual GFR. Performed By: #### 2 4323-8 ####[facility] LABCLIA [id number] [place] [address] Glucose [Mass/Vol] 89 mg/dL Normal 74-99 [facility] Comment on above: Order Comment: Rylee chauhan Type: BLOOD SPECIMENOrdering Facility: [facility] Address: [address] [place] [address] Result Comment: The [place] [employer] (ADA) provides guidance for cutoff [...] Standards of Medical Care in Diabetes 2016, [place] [employer]. Diabetes Care. 2016.39(Suppl 1). Performed By: #### 2 4323-8 ####[facility] LABCLIA [id number] [place] [address] Potassium [Moles/Vol] 3.6 mmol/L Low 3.7-5.1 [facility] Comment on above: Order Comment: Speci men Type: BLOOD SPECIMENOrdering Facility: [facility] Address: [address] [place] [address] Performed By: #### 2 4323-8 ####[facility] LABCLIA [id number] [place] [address] Protein [Mass/Vol] 7.4 g/dL Normal 6.3-8.0 [facility] Comment on above: Order Comment: Speci men Type: BLOOD SPECIMENOrdering Facility: [facility] Address: [address] [place] [address] Performed By: #### 2 4323-8 ####[facility] LABIA [id number] [place] [address] Sodium [Moles/Vol] 141 mmol/L Normal 136-144 [facility] Comment on above: Order Comment: Speci men Type: BLOOD SPECIMENOrdering Facility: [facility] Address: [address] [place] [address] Performed By: #### 2 4323-8 ####[facility] LABCLIA [id number] [place] [address] Urea nitrogen [Mass/Vol] 14 mg/dL Normal 7-21 [facility] Comment on above: Order Comment: Speci men Type: BLOOD SPECIMENOrdering Facility: [facility] Address: [address] [place] [address] Performed By: #### 2 4323-8 ####[facility] LABCLIA [id number] [place] [address] Albumin [Mass/Vol] 4.5 g/dL 3.9 - 4.9 g/dL [facility] ALP [Catalytic activity/Vol] 58 U/L 34 - 123 U/L [facility] ALT [Catalytic activity/Vol] 11 U/L 7 - 38 U/L [facility] Anion gap [Moles/Vol] 9 mmol/L 9 - 18 mmol/L [facility] AST [Catalytic activity/Vol] 17 U/L 13 - 35 U/L [facility] Bilirubin [Mass/Vol] 0.5 mg/dL 0.2 - 1 .3 mg/dL [facility] Calcium [Mass/Vol] 9.5 mg/dL 8.5 - 10. 2 mg/dL [facility] Chloride [Moles/Vol] 106 mmol/L High 97 - 10 5 mmol/L [facility] CO2 [Moles/Vol] 26 mmol/L 22 - 30 mmol/L [facility] Creatinine [Mass/Vol] 0.95 mg/dL 0.58 - 0.96 mg/dL [facility] Estimated Glomerular Filtration Rate 79 mL/min/1.73m >=60 mL/min/1.73m [facility] Glucose [Mass/Vol] 89 mg/dL 74 - 99 mg/dL [facility] Potassium [Moles/Vol] 3.6 mmol/L Low 3.7 - 5.1 mmol/L [facility] Protein [Mass/Vol] 7.4 g/dL 6.3 - 8.0 g/dL [facility] Sodium [Moles/Vol] 141 mmol/L 136 - 144 mmol/L [facility] Urea nitrogen [Mass/Vol] 14 mg/dL 7 - 21 mg/dL [facility] HBV core Ab Ser Qlon 023 HBV core Ab Ql (S) Negative Normal Negative [facility] Comment on above: Order Comment: Speci men Type: BLOOD SPECIMENOrdering Facility: [facility] Address: [address] [place] [address] Result Comment: No e vidence of current or past infection with Hepatitis B virus. Should recent infection be suspected, repeat testing may be considered 3-4 weeks after this draw. Performed By: #### 5 195-3, 34330-2, 67727-9 ####[facility] LABCLIA [id number] [facility] [id number] [place] [place] [address] [place] HBV surface Ab Ql (S)on 09-10 HBV surface Ab Qn (S) 528.76 mIU/mL [facility] HBV surface Ab Qn (S) 528.76 mIU/mL Normal [facility] Comment on above: Order Comment: Speci men Type: BLOOD SPECIMENOrdering Facility: [facility] Address: [address] [place] [address] Result Comment: <8 m IU/mL: No serological evidence of immunity to Hepatitis B Virus. >/= 8 to <12 mIU/mL: No serological evidence of immunity to Hepatitis B Virus. >/= 12 mIU/mL: Consistent with serological evidence of immunity to Hepatitis B Virus. Performed By: #### 5 195-3, 75166-2, 82516-7 ####[facility] LABCLIA [id number] [place] [address] [place] HBV surface Ab Ser Qlon 09-10 HBV surface Ab Ql (S) Positive Normal [facility] Comment on above: Order Comment: Speci men Type: BLOOD SPECIMENOrdering Facility: [facility] Address: [address] [place] [address] Result Comment: Cons istent with serological evidence of immunity to Hepatitis B Virus. Performed By: #### 5 195-3, 17784-3, 06758-8 ####[facility] LABCLIA [id number] [place] [address] [place] HBV surface Ag Ser Qlon 09-10 HBV surface Ag Ql (S) Negative Normal Negative [facility] Comment on above: Order Comment: Speci men Type: BLOOD SPECIMENOrdering Facility: [facility] Address: [address] [place] [address] Performed By: #### 5 195-3, 59875-5, 46026-6 ####[facility] LABIA [id number] [place] [address] [place] HCV Ab Ser Qlon 09-25-2023 HCV Ab Ql (S) Negative Normal Negative [facility] Comment on above: Order Comment: Speci men Type: BLOOD SPECIMENOrdering Facility: [facility] Address: [address] [place] [address] Result Comment: The result suggests no evidence of active infection with Hepatitis C virus. Should recent infection be suspected, repeat testing may be considered 4-6 weeks after this draw. Performed By: #### 1 6128-1 ####[facility] LABCLIA [id number] [place] [address] [place] HEP B CORE AB TOTALon 2022 HBV core Ab Ql (S) Negative Negative [facility] HEP B SURF ABon 09-25-2023 HBV surface Ab Ql (S) Positive [facility] HEP B SURF AG SCRNon 023 HBV surface Ag Ql (S) Negative Negative [facility] HEPATITIS C ANTIBODY IA WITH CONFIRMATIONon 09-25-2023 HCV Ab Ql (S) Negative Negative [facility] B-HCG SerPl-aCncon 3 HCG.beta subunit Qn m[IU]/mL Normal <5.0 [facility] Comment on above: Order Comment: Speci men Type: BLOOD SPECIMEN [facility] Address: [address] [place] [address] Result Comment: Nega tive Performed By: #### 2 1198-7 #### [facility] CLIA [id number] [address] [place] [address] [place] IgG SerPl-mCncon 09-24-2023 IgG [Mass/Vol] 1281 mg/dL Normal 700-1600 [facility] Comment on above: Order Comment: Speci men Type: BLOOD SPECIMEN [facility] Address: [address] [place] [address] Performed By: #### 2 1198-7 #### [facility] CLIA [id number] [address] [place] [address] [place] IgM SerPl-mCncon 09-24-2023 IgM [Mass/Vol] 128 mg/dL Normal 40-230 [facility] Comment on above: Order Comment: Speci men Type: BLOOD SPECIMEN [facility] [facility] Address: [address] [place] [address] Performed By: #### 2 1198-7 #### [facility] CLIA [id number] [address] [place] [address] [place] [id number] [facility] Christiano 08-27-2023 CNPN Telephone ([facility]) ----- SMOOTH MARTINEZ ([id number]) 1985 F Date Time Provider Department 08/27/[address] [facility] During your visit today, we [...] Primary Visit Diagnosis:Uterine polyp [N84.0] Order(s):CONSULT TO ELECTRIC CONTAINER TESTER [9021] Order #: [id number]: 1 FUTURE Prescriptions as of 08/27/2023 - [...] (FLONASE) 50 mcg/actuation nasal spray Use 1 [place] in each nostril once daily. Problem List [...] Status:Closed by JANICE LANE on 08/27/23 Normal [facility] PELVIC US WHIon 08-26-2023 [facility] CBC W Auto Differential pane l (Bld)on 08-19-2023 Basophils (Bld) [#/Vol] 0.05 10*3/uL Normal <0.11 [facility] Comment on above: Order Comment: Speci men Type: BLOOD SPECIMEN [facility]ing Facility: [facility] Address: [address] [place] [address] Performed By: #### 5 7021-8 #### [facility] CLIA [id number] [address] [place], [place] [address] [place] Basophils/100 WBC (Bld) 0.7 % Normal [facility] Comment on above: Order Comment: Speci men Type: BLOOD SPECIMEN Ordering Facility: [facility] Address: [address] [place] [address] Performed By: #### 5 7021-8 #### [facility] CLIA [id number] [address] [place], [place] [address] [place] Differential cell count method Nom (Bld) Auto Normal [facility] Comment on above: Order Comment: Speci men Type: BLOOD SPECIMEN Ordering Facility: [facility] Address: [address] [place] [address] Performed By: #### 5 7021-8 #### [facility] CLIA [id number] [address] [place] [address] [place] Eosinophils (Bld) [#/Vol] 0.10 10*3/uL Normal <0.46 [facility] Comment on above: Order Comment: Speci men Type: BLOOD SPECIMEN [facility] Facility[facility] Address: [address] [place] [address] Performed By: #### 5 7021-8 #### [facility] CLIA [id number] [address] [place] [address] [place] Eosinophils/100 WBC (Bld) 1.5 % Normal [facility] Comment on above: Order Comment: Speci men Type: BLOOD SPECIMEN [facility]ing Facility[facility] Address: [address] [place] [address] Performed By: #### 5 7021-8 #### [facility] CLIA [id number] [address] [place], [place] [address] [place] Erythrocyte distribution width (RBC) [Ratio] 24.4 % High 11.5-15.0 [facility] Comment on above: Order Comment: Speci men Type: BLOOD SPECIMEN [facility] Facility[facility] Address: [address] [place] [address] Performed By: #### 5 7021-8 #### [facility] CLIA [id number] [address] [place] [address] [place] Hematocrit (Bld) [Volume fraction] 35.6 % Low 36.0-46.0 [facility] Comment on above: Order Comment: Speci men Type: BLOOD SPECIMEN [facility] Address: [address] [place] [address] Performed By: #### 5 7021-8 #### [facility] CLIA [id number] [address] [place] [address] [place] Hemoglobin (Bld) [Mass/Vol] 10.6 g/dL Low 11.5-15.5 [facility] Comment on above: Order Comment: Speci men Type: BLOOD SPECIMEN [facility] Address: [address] [place] [address] Performed By: #### 5 7021-8 #### [facility] CLIA [id number] [address] [place] [address] [place] Immature granulocytes (Bld) [#/Vol] 10*3/uL Normal <0.10 [facility] Comment on above: Order Comment: Speci men Type: BLOOD SPECIMEN [facility] Address: [address] [place] [address] Performed By: #### 5 7021-8 #### [facility] CLIA [id number] [address] [place] [address] [place] Immature granulocytes/100 WBC (Bld) 0.3 % Normal [facility] Comment on above: Order Comment: Speci men Type: BLOOD SPECIMEN Ordering Facility: [facility] Address: [address] [place] [address] Performed By: #### 5 7021-8 #### [facility] CLIA [id number] [address] [place] [address] [place] Lymphocytes (Bld) [#/Vol] 2.27 10*3/uL Normal 1.00-4.00 [facility] Comment on above: Order Comment: Speci men Type: BLOOD SPECIMEN [facility] Address: [address] [place] [address] Performed By: #### 5 7021-8 #### [facility] CLIA [id number] [address] [place] [address] [place] Lymphocytes/100 WBC (Bld) 32.9 % Normal [facility] Comment on above: Order Comment: Speci men Type: BLOOD SPECIMEN [facility] Address: [address] [place] [address] Performed By: #### 5 7021-8 #### [facility] CLIA [id number] [address] [place] [address] [place] MCH (RBC) [Entitic mass] 22.1 pg Low 26.0-34.0 [facility] Comment on above: Order Comment: Speci men Type: BLOOD SPECIMEN [facility] Address: [address] [place] [address] Performed By: #### 5 7021-8 #### [facility] CLIA [id number] [address] [place] [address] [place] MCHC (RBC) [Mass/Vol] 29.8 g/dL Low 30.5-36.0 [facility] Comment on above: Order Comment: Speci men Type: BLOOD SPECIMEN [facility] Address: [address] [place] [address] Performed By: #### 5 7021-8 #### [facility] CLIA [id number] [address] [place] [address] [place] MCV (RBC) [Entitic vol] 74.3 fL Low 80.0-100.0 [facility] Comment on above: Order Comment: Speci men Type: BLOOD SPECIMEN [facility]ing [facility] Address: [address] [place] [address] Performed By: #### 5 7021-8 #### [facility] CLIA [id number] [address] [place] [address] [place] Monocytes (Bld) [#/Vol] 0.52 10*3/uL Normal <0.87 [facility] Comment on above: Order Comment: Speci men Type: BLOOD SPECIMEN Order[facility] Address: [address] [place] [address] Performed By: #### 5 7021-8 #### [facility] CLIA [id number] [address] [place] [address] [place] Monocytes/100 WBC (Bld) 7.5 % Normal [facility] Comment on above: Order Comment: Speci men Type: BLOOD SPECIMEN [facility] Address: [address] [place] [address] Performed By: #### 5 7021-8 #### [facility] CLIA [id number] [address] [place] [address] [place] Neutrophils (Bld) [#/Vol] 3.93 10*3/uL Normal 1.45-7.50 [facility] Comment on above: Order Comment: Speci men Type: BLOOD SPECIMEN [facility] Address: [address] [place] [address] Performed By: #### 5 7021-8 #### [facility] CLIA [id number] [address] [place] [address] [place] Neutrophils/100 WBC (Bld) 57.1 % Normal [facility] Comment on above: Order Comment: Speci men Type: BLOOD SPECIMEN Order[facility] Address: [address] [place] [address] Performed By: #### 5 7021-8 #### [facility] CLIA [id number] [address] [place] [address] [place] Nucleated RBC (Bld) [#/Vol] 10*3/uL Normal <0.01 [facility] Comment on above: Order Comment: Speci men Type: BLOOD SPECIMEN Order[facility] Facility[facility] Address: [address] [place] [address] Performed By: #### 5 7021-8 #### [facility] CLIA [id number] [address] [place] [address] [place] Nucleated RBC/100 WBC (Bld) [Ratio] 0.0 /100 WBC Normal [facility] Comment on above: Order Comment: Speci men Type: BLOOD SPECIMEN [facility] Address: [address] [place] [address] Performed By: #### 5 7021-8 #### [facility] CLIA [id number] [address] [place] [address] [place] Platelet mean volume (Bld) [Entitic vol] Normal [facility] Comment on above: Order Comment: Speci men Type: BLOOD SPECIMEN Order[facility] Address: [address] [place] [address] Result Comment: Unab le to Report. Performed By: #### 5 7021-8 #### [facility] CLIA [id number] [address] [place] [address] [place] Platelets (Bld) [#/Vol] 213 10*3/uL Normal 150-400 [facility] Comment on above: Order Comment: Speci men Type: BLOOD SPECIMEN [facility] Address: [address] [place] [address] Result Comment: No c lot detected. Performed By: #### 5 7021-8 #### [facility] CLIA [id number] [address] [place] [address] [place] RBC (Bld) [#/Vol] 4.79 10*6/uL Normal 3.90-5.20 [facility] Comment on above: Order Comment: Speci men Type: BLOOD SPECIMEN [facility] Address: [address] [place] [address] Performed By: #### 5 7021-8 #### [facility] CLIA [id number] [address] [place] [address] [place] WBC (Bld) [#/Vol] 6.89 10*3/uL Normal 3.70-11.00 [facility] Comment on above: Order Comment: Speci men Type: BLOOD SPECIMEN [facility] Address: [address] [place] [address] Performed By: #### 5 7021-8 #### [facility] CLOZZY [id number] [address] [place] [address] OF [facility] CNOVon 08-19-2023 CNOV Office Visit (NEUR ) ----- SMOOTH MARTINEZ ([id number]) 1985 F Date Time Provider Department 08/19/23 9:00 AM GERMANIA WILKINSON [facility] During your visit today, we recorded the following information about you: Pulse Blood pressure Weight Height 96/minute 104/77 56.7 kg 1.689 m Germania Wilkinson MD 08/19/2023 4:[address] [facility] New Patient Evaluation [...] or near accidents due to drowsy drivin Rowdy Sleepiness Scale 01/03/2020 08/11/2023 Score 0 0 [...] Had 2 sleep studies - one at [facility] [place] OTHER RELEVANT LABS AND STUDIES: PAST MEDICAL [...] of Date: (more content not included)... Normal [facility] Ferritin SerPl-mCncon 2022 Ferritin [Mass/Vol] 25.6 ng/mL Normal 14.7-205.1 [facility] Comment on above: Order Comment: Speci men Type: BLOOD SPECIMENOrdering Facility: [facility] Address: [address] [place] [address] Performed By: #### 2 276-4 ####[facility] LABCLIA [id number] [place] [address] [place] Iron and Iron binding capaci ty panelon 08-19-2023 Iron [Mass/Vol] 27 ug/dL Low 41-186 [facility] Comment on above: Order Comment: Speci men Type: BLOOD SPECIMEN [facility] Address: [address] [place] [address] Performed By: #### 2 1198-7 #### [facility] CLIA [id number] [address] [place] Iron binding capacity [Mass/Vol] 353 ug/dL Normal 232-386 [facility] Comment on above: Order Comment: Rylee men Type: BLOOD SPECIMEN Order[facility] Address: [place] [address] Performed By: #### 2 1198-7 #### [facility] CLIA [id number] [address] [place] [address] [place] Iron/TIBC [Molar ratio] 7.6 % Low 15.0-57.0 [facility] Comment on above: Order Comment: Speci men Type: BLOOD SPECIMEN [facility] Address: [address] [place] [address] Performed By: #### 2 1198-7 #### [facility] CLIA [id number] [address] [place] [address] OF [facility] CNOVon 07-23-2023 CNOV Office Visit (NEMSLR ) ----- SMOOTH MARTINEZ ([id number]) 1985 F Date Time Provider Department 07/23/23 11:15 AM TOR HERNANDEZ During your visit today, we recorded the following information about you: Pulse Blood pressure Weight 69/minute 94/62 56.7 kg Tor Hernandez APRN.SR. MANAGER MARKETING 07/23/2023 5:00 PM [facility] FOLLOWUP/ESTABLISHED PATIENT VISIT PRINCIPAL NEUROLOGIC DIAGNOSIS: Multiple Sclerosis DISEASE SUMMARY Date of onset: 03/2007 Date of diagnosis of MS: 03/2007 Disease course at onset: Relapsing-Remitting Current disease course: Progressive without relapses Previous disease therapies: - Betaseron 6615-7416 - Copaxone 5724-1030 - Tysabri 2009-Summer 2019 (stopped due to planned ) - Copaxone 3724-5082 (during ) Current disease therapy: Ocrevus since 02/28/21, most recent 04/21/23 Most recent MRI brain: 01/02/23 (stable) Most recent MRI cervical spine: 01/02/23 (stable) Most recent MRI thoracic spine: 07/23/2022 CSF: NA JCV: 02/14/2021 0.28, stratify negative Brief Disease History: - 2006 lower extremity numbness evolving over 3 weeks following occipital relase - 4865-4741 recurrent OS ON - 8710-9926 several relapses including L numbness, weakness, constipation, urinary urgency - 2019 R weakness and numbness needing a wheelchair, hospitalized at [facility] (off Tysabri x3 months due [...] effects. 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 Gets shaniqua horses [...] starting next week, unable to accommodate home [employer] Walks without walker or cane Leans on [...] in August Neuro-QoL Functions (higher=better functioning) Flowsheet [facility] Office Visit from 07/23/2023 in [facility] Office Visit from 01/17/2023 in [facility] Appointment from 01/15/2023 in [facility] Upper Extremity Domain T Score 28.29 31.35 30 Lower Extremity Domain T Score 36.94 36.94 39 Cognitive Function Domain T Score 30.7 28.53 38 Positive Affect Well Being T Score -- -- -- Ability To Participate In Social Roles T Score 39.9 39.9 43 Satisfaction With Social Roles T Score 39.66 39.66 45 Neuro-QoL Symptoms (higher=worse symptoms) Flowsheet [facility] Office Visit from 07/23/2023 in [facility] Office Visit from 01/17/2023 in [facility] Appointment from 01/15/2023 in [facility] Sleep Domain T Score 69.2 68.89 61 [...] Edema of lower extremity (04/17/2021), Multiple sclerosis ([facility]), Seizure ([facility]), and Thyroid disease. She has no past medical history of Asthma, Blood dyscrasia, Breast disorder, Chlamydia, Chronic kidney disease, Complication of anesthesia, Coronary artery disease, Diabetes ([facility]), Diabetes, gestational, Gonorrhea, Herpes simplex virus (HSV) infection, History of pre-eclampsia in prior , currently , HIV infection ([facility]), (more content not included)... Normal [facility] Christiano 07-18-2023 CNPN Telephone ([facility]) ----- SMOOTH MARTINEZ ([id number]) 1985 F Date Time Provider Department 07/18/[address] [facility] During your visit today, we [...] [D50.0] Order(s):CBC + DIFF [SQCBCDIF] Order #: [id number] FUTURE IRON + TIBC [SQIRON] Order #: [id number] FUTURE FERRITIN BLD [SQFERR] Order #: [id number] FUTURE Prescriptions as of 07/21/2023 - ketoconazole [...] (FLONASE) 50 mcg/actuation nasal spray Use 1 [place] in each nostril once daily. - MAGNESIUM [...] Status:Closed by SIXTO REBOLLEDO on 07/21/23 Normal [facility] CBC W Auto Differential pane l (Bld)on 07-17-2023 Basophils (Bld) [#/Vol] 0.06 10*3/uL Normal <0.11 [facility] Comment on above: Order Comment: Speci men Type: BLOOD SPECIMENOrdering Facility: [facility] Address: [address] [place] [address] Performed By: #### 5 7021-8 ####[facility] LABCLIA [id number] [place] [address] [place] Basophils/100 WBC (Bld) 1.2 % Normal [facility] Comment on above: Order Comment: Speci men Type: BLOOD SPECIMENOrdering Facility: [facility] Address: [address] [place] [address] Performed By: #### 5 7021-8 ####[facility] LABCLIA [id number] [place] [address] [place] Differential cell count method Nom (Bld) Auto Normal [facility] Comment on above: Order Comment: Speci men Type: BLOOD SPECIMENOrdering Facility: [facility] Address: [address] Performed By: #### 5 7021-8 ####[facility] LABCLIA [id number] [address] [place] Eosinophils (Bld) [#/Vol] 0.09 10*3/uL Normal <0.46 [facility] Comment on above: Order Comment: Speci men Type: BLOOD SPECIMENOrdering Facility: [facility] Address: [address] [place] [address] Performed By: #### 5 7021-8 ####[facility] LABCLIA [id number] [address] [place] Eosinophils/100 WBC (Bld) 1.8 % Normal [facility] Comment on above: Order Comment: Speci men Type: BLOOD SPECIMENOrdering Facility: [facility] Address: [address] Performed By: #### 5 7021-8 ####[facility] LABIA [id number] [place] [address] [place] Erythrocyte distribution width (RBC) [Ratio] 25.8 % High 11.5-15.0 [facility] Comment on above: Order Comment: Speci men Type: BLOOD SPECIMENOrdering Facility: [facility] Address: [address] Performed By: #### 5 7021-8 ####[facility] LABCLIA [id number] [place] [address] [place] Hematocrit (Bld) [Volume fraction] 34.2 % Low 36.0-46.0 [facility] Comment on above: Order Comment: Speci men Type: BLOOD SPECIMENOrdering Facility: [facility] Address: [address] Performed By: #### 5 7021-8 ####[facility] LABCLIA [id number] [place] [address] [place] Hemoglobin (Bld) [Mass/Vol] 9.6 g/dL Low 11.5-15.5 [facility] Comment on above: Order Comment: Speci men Type: BLOOD SPECIMENOrdering Facility: [facility] Address: [address] [place] [address] Performed By: #### 5 7021-8 ####[facility] LABCLIA [id number] [place] [address] [place] Immature granulocytes (Bld) [#/Vol] 10*3/uL Normal <0.10 [facility] Comment on above: Order Comment: Speci men Type: BLOOD SPECIMENOrdering Facility: [facility] Address: [address] [place] [address] Performed By: #### 5 7021-8 ####[facility] LABIA [id number] [place] [address] [place] Immature granulocytes/100 WBC (Bld) 0.4 % Normal [facility] Comment on above: Order Comment: Speci men Type: BLOOD SPECIMENOrdering Facility: [facility] Address: [address] [place], [place] [address] Performed By: #### 5 7021-8 ####[facility] LABIA [id number] [place] [address] [place] Lymphocytes (Bld) [#/Vol] 1.52 10*3/uL Normal 1.00-4.00 [facility] Comment on above: Order Comment: Speci men Type: BLOOD SPECIMENOrdering Facility: [facility] Address: [address] [place], [place] [address] Performed By: #### 5 7021-8 ####[facility] LABIA [id number] [place] [address] [place] Lymphocytes/100 WBC (Bld) 31.2 % Normal [facility] Comment on above: Order Comment: Speci men Type: BLOOD SPECIMENOrdering Facility: [facility] Address: [address] [place], [place] [address] Performed By: #### 5 7021-8 ####[facility] LABIA [id number] [address] [place] [facility] MCH (RBC) [Entitic mass] 19.4 pg Low 26.0-34.0 [facility] Comment on above: Order Comment: Speci men Type: BLOOD SPECIMENOrdering Facility: [facility] Address: [address] [place], [place] [address] Performed By: #### 5 7021-8 ####[facility] LABIA [id number] [address] [place] MCHC (RBC) [Mass/Vol] 28.1 g/dL Low 30.5-36.0 [facility] Comment on above: Order Comment: Speci men Type: BLOOD SPECIMENOrdering Facility: [facility] Address: [address] [place], [place] [address] Performed By: #### 5 7021-8 ####[facility] LABIA [id number] [address] [place] MCV (RBC) [Entitic vol] 69.2 fL Low 80.0-100.0 [facility] Comment on above: Order Comment: Speci men Type: BLOOD SPECIMENOrdering Facility: [facility] Address: [address] [place], [place] [address] Performed By: #### 5 7021-8 ####[facility] LABIA [id number] [address] STATES OF [facility] Monocytes (Bld) [#/Vol] 0.65 10*3/uL Normal <0.87 [facility] Comment on above: Order Comment: Speci men Type: BLOOD SPECIMENOrdering Facility: [facility] Address: [address] [place] [address] Performed By: #### 5 7021-8 ####[facility] LABCLIA [id number] [place] [address] [place] Monocytes/100 WBC (Bld) 13.3 % Normal [facility] Comment on above: Order Comment: Speci men Type: BLOOD SPECIMENOrdering Facility: [facility] Address: [address] Performed By: #### 5 7021-8 ####[facility] LABCLIA [id number] [place] [address] [place] Neutrophils (Bld) [#/Vol] 2.53 10*3/uL Normal 1.45-7.50 [facility] Comment on above: Order Comment: Speci men Type: BLOOD SPECIMENOrdering Facility: [facility] Address: [address] Performed By: #### 5 7021-8 ####[facility] LABCLIA [id number] [place] [address] [place] Neutrophils/100 WBC (Bld) 52.1 % Normal [facility] Comment on above: Order Comment: Speci men Type: BLOOD SPECIMENOrdering Facility: [facility] Address: [address] [place] [address] Performed By: #### 5 7021-8 ####[facility] LABCLIA [id number] [place] [address] [place] Nucleated RBC (Bld) [#/Vol] 10*3/uL Normal <0.01 [facility] Comment on above: Order Comment: Speci men Type: BLOOD SPECIMENOrdering Facility: [facility] Address: [address] [place] [address] Performed By: #### 5 7021-8 ####[facility] LABCLIA [id number] [place] [address] [place] Nucleated RBC/100 WBC (Bld) [Ratio] 0.0 /100 WBC Normal [facility] Comment on above: Order Comment: Speci men Type: BLOOD SPECIMENOrdering Facility: [facility] Address: [address] [place] [address] Performed By: #### 5 7021-8 ####[facility] LABCLIA [id number] [place] [address] [place] Platelet mean volume (Bld) [Entitic vol] Normal [facility] Comment on above: Order Comment: Speci men Type: BLOOD SPECIMENOrdering Facility: [facility] Address: [address] [place] [address] Result Comment: Unab le to Report. Performed By: #### 5 7021-8 ####[facility] LABIA [id number] [place] [address] [place] Platelets (Bld) [#/Vol] 226 10*3/uL Normal 150-400 [facility] Comment on above: Order Comment: Speci men Type: BLOOD SPECIMENOrdering Facility: [facility] Address: [address] [place] [address] Result Comment: Resu lts checked and verified.No clot detected. Performed By: #### 5 7021-8 ####[facility] LABIA [id number] [place] [address] [place] RBC (Bld) [#/Vol] 4.94 10*6/uL Normal 3.90-5.20 [facility] Comment on above: Order Comment: Speci men Type: BLOOD SPECIMENOrdering Facility: [facility] Address: [address] [place], [place] [address] Performed By: #### 5 7021-8 ####[facility] LABCLIA [id number] [place] [address] [place] WBC (Bld) [#/Vol] 4.87 10*3/uL Normal 3.70-11.00 [facility] Comment on above: Order Comment: Speci men Type: BLOOD SPECIMENOrdering Facility: [facility] Address: [address] [place] [address] Performed By: #### 5 7021-8 ####[facility] LABCLIA [id number] [id number] [id number] [facility] CNOVon 07-17-2023 CNOV Office Visit ([facility] ) ----- SMOOTH MARTINEZ ([id number]) 1985 F Date Time Provider Department 07/17/23 11:[address] [facility] During your visit today, we recorded the following information about you: Temperature Pulse Blood pressure Weight 98.5 degrees 82/minute 110/66 56.2 kg Height Last Period 1.689 m 07/06/[address] MD 07/17/2023 6:15 PM Signed SUBJECTIVE: [...] with her significant other. She went to [place] for a few months to live with her parents. She canceled or no showed her appointments with [facility] and with her therapist. Patient said she [...] loss, confusion., Denies weakness, numbness or tingling.. HEMATOLOGIC/LYMPHATIC/IMM UNOLOGIC: Denies anemia, bruising, bleeding abnormalities. ENDOCRINE: Denies [...] No C (more content not included)... Normal [facility] Comprehensive metabolic 2000 panelon 07-17-2023 Albumin [Mass/Vol] 4.6 g/dL Normal 3.9-4.9 [facility] Comment on above: Order Comment: Speci men Type: BLOOD SPECIMENOrdering Facility: [facility] Address: [address] [place] [address] Performed By: #### 3 016-3, 2276-4, 85465-7, 47209-7 ####[facility] LABCLIA [id number] [facility] [id number] [place] [address] [place] ALP [Catalytic activity/Vol] 49 U/L Normal 34-123 [facility] Comment on above: Order Comment: Speci men Type: BLOOD SPECIMENOrdering Facility: [facility] Address: [address] [place], [place] [address] Performed By: #### 3 016-3, 2276-4, 37004-8, 98907-2 ####[facility] LABCLIA [id number] [place] [address] [place] ALT [Catalytic activity/Vol] 10 U/L Normal 7-38 [facility] Comment on above: Order Comment: Speci men Type: BLOOD SPECIMENOrdering Facility: [facility] Address: [address] [place] [address] Performed By: #### 3 016-3, 2276-4, 53475-7, 41325-3 ####[facility] LABCLIA [id number] [place] [address] [place] Anion gap [Moles/Vol] 9 mmol/L Normal 9-18 [facility] Comment on above: Order Comment: Speci men Type: BLOOD SPECIMENOrdering Facility: [facility] Address: [address] [place] [address] Performed By: #### 3 016-3, 6-4, 82978-6, 03392-9 ####[facility] LABCLIA [id number] [place] [address] [place] AST [Catalytic activity/Vol] 17 U/L Normal 13-35 [facility] Comment on above: Order Comment: Speci men Type: BLOOD SPECIMENOrdering Facility: [facility] Address: [address] [place] [address] Performed By: #### 3 016-3, 6-4, 55464-8, 01463-6 ####[facility] LABCLIA [id number] [place] [id number] [place] Bilirubin [Mass/Vol] 0.5 mg/dL Normal 0.2-1.3 [facility] Comment on above: Order Comment: Speci men Type: BLOOD SPECIMENOrdering Facility: [facility] Address: [address] [place] [address] Performed By: #### 3 016-3, 2276-4, 67591-4, 56841-0 ####[facility] LABCLIA [id number] [address] [address] [place] Calcium [Mass/Vol] 9.4 mg/dL Normal 8.5-10.2 [facility] Comment on above: Order Comment: Speci men Type: BLOOD SPECIMENOrdering Facility: [facility] Address: [address] [place] [address] Performed By: #### 3 016-3, 6-4, 79031-2, 91449-3 ####[facility] LABCLIA [id number] [place] [address] [place] Chloride [Moles/Vol] 106 mmol/L High 97-105 [facility] Comment on above: Order Comment: Speci men Type: BLOOD SPECIMENOrdering Facility: [facility] Address: [address] [place] [address] Performed By: #### 3 016-3, 6-4, 61235-4, 91384-4 ####[facility] LABCLIA [id number] [place] [address] [place] CO2 [Moles/Vol] 24 mmol/L Normal 22-30 [facility] Comment on above: Order Comment: Speci men Type: BLOOD SPECIMENOrdering Facility: [facility] Address: [address] [place] [address] Performed By: #### 3 016-3, 6-4, 47035-7, 77236-0 ####[facility] LABCLIA [id number] [address] [address] [place] Creatinine [Mass/Vol] 0.94 mg/dL Normal 0.58-0.96 [facility] Comment on above: Order Comment: Speci men Type: BLOOD SPECIMENOrdering Facility: [facility] Address: [address] [place] [address] Performed By: #### 3 016-3, 6-4, 50886-8, 83975-7 ####[facility] LABCLIA [id number] [address] [place] Creatinine and Glomerular filtration rate.predicted panel (S/P/Bld) 80 mL/min/1.73m??? Normal >=60 [facility] Comment on above: Order Comment: Rylee chauhan Type: BLOOD SPECIMENOrdering Facility: [facility] Address: [address] [place] [address] Result Comment: Priscila mated Glomerular Filtration Rate [...] accurately reflect actual GFR. Performed By: #### 3 016-3, 2276-4, 78560-8, 36384-3 ####[facility] LABCLIA [id number] [place] [address] [place] Glucose [Mass/Vol] 80 mg/dL Normal 74-99 [facility] Comment on above: Order Comment: Rylee chauhan Type: BLOOD SPECIMENOrdering Facility: [facility] Address: [address] [place] [address] Result Comment: The [place] Diabetes Association (ADA) provides guidance for cutoff [...] Standards of Medical Care in Diabetes 2016, [place] Diabetes Association. Diabetes Care. 2016.39(Suppl 1). Performed By: #### 3 016-3, 2276-4, 31492-3, 82346-2 ####[facility] LABCLIA [id number] [address] [address] [place] Potassium [Moles/Vol] 4.4 mmol/L Normal 3.7-5.1 [facility] Comment on above: Order Comment: Speci men Type: BLOOD SPECIMENOrdering Facility: [facility] Address: [address] [place] [address] Performed By: #### 3 016-3, 2276-4, 95272-3, 49159-9 ####[facility] LABCLIA [id number] [place] [address] [place] Protein [Mass/Vol] 7.7 g/dL Normal 6.3-8.0 [facility] Comment on above: Order Comment: Speci men Type: BLOOD SPECIMENOrdering Facility: [facility] Address: [address] [place] [address] Performed By: #### 3 016-3, 2276-4, 90705-2, 87887-5 ####[facility] LABIA [id number] [place] [address] [place] Sodium [Moles/Vol] 139 mmol/L Normal 136-144 [facility] Comment on above: Order Comment: Speci men Type: BLOOD SPECIMENOrdering Facility: [facility] Address: [address] [place], [place] [address] Performed By: #### 3 016-3, 2276-4, 32613-7, 18597-2 ####[facility] LABCLIA [id number] [address] [address] [place] Urea nitrogen [Mass/Vol] 13 mg/dL Normal 7-21 [facility] Comment on above: Order Comment: Speci men Type: BLOOD SPECIMENOrdering Facility: [facility] Address: [address] [place], [place] [address] Performed By: #### 3 016-3, 2276-4, 60303-0, 32241-7 ####[facility] LABCLIA [id number] [place] [address] [place] Ferritin SerPl-mCncon 2022 Ferritin [Mass/Vol] 15.8 ng/mL Normal 14.7-205.1 [facility] Comment on above: Order Comment: Speci men Type: BLOOD SPECIMENOrdering Facility: [facility] Address: [address] [place] [address] Performed By: #### 3 016-3, 2276-4, 65672-7, 46101-6 ####[facility] LABCLIA [id number] [place] [address] [place] Iron and Iron binding capaci ty panelon 07-17-2023 Iron [Mass/Vol] 321 ug/dL High 41-186 [facility] Comment on above: Order Comment: Speci men Type: BLOOD SPECIMENOrdering Facility: [facility] Address: [address] [place] [address] Performed By: #### 3 016-3, 2276-4, 21716-7, 41562-5 ####[facility] LABIA [id number] [place] [address] [place] Iron binding capacity [Mass/Vol] 400 ug/dL High 232-386 [facility] Comment on above: Order Comment: Speci men Type: BLOOD SPECIMENOrdering Facility: [facility] Address: [address] [place] [address] Performed By: #### 3 016-3, 2276-4, 13808-4, 36566-5 ####[facility] LABIA [id number] [place] [address] [place] Iron/TIBC [Molar ratio] 80.3 % High 15.0-57.0 [facility] Comment on above: Order Comment: Speci men Type: BLOOD SPECIMENOrdering Facility: [facility] Address: [address] [place] [address] Performed By: #### 3 016-3, 2276-4, 96657-7, 92466-9 ####[facility] LABIA [id number] [place] [id number] [place] TSH SerPl-aCncon 07-17-2023 TSH Qn 1.410 m[IU]/L Normal 0.270-4.200 [facility] Comment on above: Order Comment: Speci men Type: BLOOD SPECIMENOrdering Facility: [facility] Address: [address] [place] [address] Result Comment: If t he patient is , TSH reference range varies by gestational period: First Trimester (weeks 9-12): 0.180-2.990 mIU/L Second Trimester: 0.110-3.980 mIU/L Third Trimester: 0.480-4.710 mIU/L Rich Patrick et al. A Practical Approach for the Verifications and Determination of Site- and Trimester-Specific Reference Intervals for Thyroid Function tests in . Thyroid, 2019:29:3:412-420. Vivek Null, et al. 2017 Guidelines of the [place] Thyroid Association for the Diagnosis and Management of Thyroid Disease during and the . Thyroid, 2017:27:3:315-389. Performed By: #### 3 016-3, 2276-4, 52639-4, 07513-1 ####[facility] LABIA [id number] [address] [address] [place] Christiano 03-31-2023 CNPN Telephone (NIQ) ----- SMOOTH MARTINEZ ([id number]) 1985 F Date Time Provider Department 03/31/23 JOSE RAUL SANTANA NIDenise During your visit today, we recorded the following information about you: Alonzo Lopez 03/31/2023 3:45 PM Signed Received call from patient to discuss getting her next infusion in [place]. Explained the potential concerns from the drug company regarding her [place] Medicaid possibly not covering the infusion. Patient is currently in [place] and has applied for [place] Medicaid. She believes the facility in [place] will accept this since she had this coverage last time she went there. She said she was told application can take up to 45 days to process, but they can backdate her start date. Given this information, patient wishes to proceed with transferring infusions to requested hospital in [place]. Request sent to care team for orders. [...] (FLONASE) 50 mcg/actuation nasal spray Use 1 [place] in each nostril once daily. - MAGNESIUM ORAL Take 1 tablet by mouth twice daily. - Vkqdsstz-Yv-Cok-Fe-FA ( VITAMIN) tab Take 1 tablet by [...] communication deficit [R41.841] 07/22/2022 Encounter Status:Closed by MARAVILLA ALONZO LOPEZ on 03/31/23 Normal [facility] Trichmonas Vaginalis Screen (EIA)on 01-24-2023 Trichomonas Vaginalis Screen (EIA) Negative Normal [facility] Comment on above: Performed By: #### E TRIC #### [facility] [address] [place] [address] Wet Prep-Medical Purposes On berry 01-24-2023 Wet Prep Clue Cellls 1+ Abnormal [facility] Comment on above: Performed By: #### W ETPR #### [facility] [address] [place] [address] Wet Prep Trichomonas See EIA Normal [facility] Comment on above: Performed By: #### W ETPR #### [facility] [address] [place] [address] Wet Prep Yeast None Seen Normal [facility] Comment on above: Performed By: #### W ETPR #### [facility] [address] [place] [address] CBC W Auto Differential pane l (Bld)on 01-17-2023 Basophils (Bld) [#/Vol] 0.07 10*3/uL <0.11 k/uL [facility] Basophils/100 WBC (Bld) 1.0 % [facility] Differential cell count method Nom (Bld) Auto [facility] Eosinophils (Bld) [#/Vol] 0.07 10*3/uL <0.46 k/uL [facility] Eosinophils/100 WBC (Bld) 1.0 % [facility] Erythrocyte distribution width (RBC) [Ratio] 15.5 % High 11.5 - 15.0 % [facility] Hematocrit (Bld) [Volume fraction] 31.5 % Low 36.0 - 46.0 % [facility] Hemoglobin (Bld) [Mass/Vol] 9.4 g/dL Low 11.5 - 15.5 g/dL [facility] Immature granulocytes (Bld) [#/Vol] <0.10 k/uL [facility] Immature granulocytes/100 WBC (Bld) 0.3 % [facility] Lymphocytes (Bld) [#/Vol] 2.30 10*3/uL 1.00 - 4.00 k/uL [facility] Lymphocytes/100 WBC (Bld) 32.7 % [facility] MCH (RBC) [Entitic mass] 22.2 pg Low 26.0 - 34.[address] [facility] MCHC (RBC) [Mass/Vol] 29.8 g/dL Low 30.5 - 36.0 g/dL [facility] MCV (RBC) [Entitic vol] 74.3 fL Low 80.0 - 100.[address] [facility] Monocytes (Bld) [#/Vol] 0.51 10*3/uL <0.87 k/uL [facility] Monocytes/100 WBC (Bld) 7.2 % [facility] Neutrophils (Bld) [#/Vol] 4.07 10*3/uL 1.45 - 7.50 k/uL [facility] Neutrophils/100 WBC (Bld) 57.8 % [facility] Nucleated RBC (Bld) [#/Vol] <0.01 k/uL [facility] Nucleated RBC/100 WBC (Bld) [Ratio] 0.0 /[address] [facility] Platelet mean volume (Bld) [Entitic vol] 13.6 fL High 9.0 - 12.[address] [facility] Platelets (Bld) [#/Vol] 304 10*3/uL 150 - 400 k/uL [facility] RBC (Bld) [#/Vol] 4.24 10*6/uL 3.90 - 5.2 0 m/uL [facility] WBC (Bld) [#/Vol] 7.04 10*3/uL 3.70 - 11. 00 k/uL [facility] Comprehensive metabolic 2000 panelon 01-17-2023 Albumin [Mass/Vol] 4.5 g/dL 3.9 - 4.9 g/dL [facility] ALP [Catalytic activity/Vol] 62 U/L 34 - 123 U/L [facility] ALT [Catalytic activity/Vol] 11 U/L 7 - 38 U/L [facility] Anion gap [Moles/Vol] 9 mmol/L 9 - 18 mmol/L [facility] AST [Catalytic activity/Vol] 18 U/L 13 - 35 U/L [facility] Bilirubin [Mass/Vol] 0.3 mg/dL 0.2 - 1 .3 mg/dL [facility] Calcium [Mass/Vol] 9.8 mg/dL 8.5 - 10. 2 mg/dL [facility] Chloride [Moles/Vol] 104 mmol/L 97 - 10 5 mmol/L [facility] CO2 [Moles/Vol] 26 mmol/L 22 - 30 mmol/L [facility] Creatinine [Mass/Vol] 0.79 mg/dL 0.58 - 0.96 mg/dL [facility] Estimated Glomerular Filtration Rate 99 mL/min/1.73m >=60 mL/min/1.73m [facility] Glucose [Mass/Vol] 69 mg/dL Low 74 - 99 mg/dL [facility] Potassium [Moles/Vol] 4.2 mmol/L 3.7 - 5.1 mmol/L [facility] Protein [Mass/Vol] 7.9 g/dL 6.3 - 8.0 g/dL [facility] Sodium [Moles/Vol] 139 mmol/L 136 - 144 mmol/L [facility] Urea nitrogen [Mass/Vol] 11 mg/dL 7 - 21 mg/dL [facility] C.trachomatis N.gonorrhoeae DNAon 12-10-2022 C. trachomatis DNA DEIRDRE+probe Ql (Unsp spec) Negative Normal Negative [facility] N. gonorrhoeae DNA DEIRDRE+probe Ql (Unsp spec) Negative Normal Negative [facility] Trichmonas Vaginalis Screen (EIA)on 12-06-2022 Trichomonas Vaginalis Screen (EIA) Negative Normal [facility] Comment on above: Performed By: #### E TRIC #### [facility] [address] [facility] [address] Wet Prep-Medical Purposes On berry 12-06-2022 Wet Prep Clue Cellls 1+ Abnormal [facility] Comment on above: Performed By: #### W ETPR #### [facility] [address] [place] [id number] 271-28 Wet Prep Trichomonas See EIA Normal [facility] Comment on above: Performed By: #### W ETPR #### [facility] [address] [place] [address] Wet Prep Yeast None Seen Normal [facility] Comment on above: Performed By: #### W ETPR #### [facility] [address] [place] [address] Albumin [Mass/volume] in Ser um or PlasmaOrdered By: Vishal Agarwal on 10-27-2022 Albumin [Mass/Vol] 4.1 g/dL 3.2-5.5 [facility] Basophils Auto (Bld) [#/Vol] Ordered By: Vishal Agarwal on 10-27-2022 Basophils (Bld) [#/Vol] 0.0 10*3/uL 0.0-0.2 [facility] Basophils/100 WBC Auto (Bld) Ordered By: Vishal Agarwal on 10-27-2022 Basophils/100 WBC (Bld) 0.4 % . [facility] COVID CepheidOrdered By: Brook Agarwal on 10-27-2022 SARS-CoV-2 (COVID-19) Ab IA Ql Positive Negative [facility] Comment on above: This is a duplicate [employer] Xpert Xpress CoV-2/Flu/RSV Plus RNA by RT-PCR result to be used for statistical tracking purpose only. SARS-CoV-2 (COVID-19) RNA DEIRDRE+probe Ql (Unsp spec) [facility] Creatinine and Glomerular fi ltration rate.predicted panel (S/P/Bld)Ordered By: Vishal Agarwal on 10-27-2022 Creatinine [Mass/Vol] 0.96 mg/dL 0.44-1.03 [facility] Eosinophils Auto (Bld) [#/Vo l]Ordered By: Vishal Agarwal on 10-27-2022 Eosinophils (Bld) [#/Vol] 0.0 10*3/uL 0.0-0.45 [facility] Eosinophils/100 WBC Auto (Bl d)Ordered By: Vishal Agarwal on 10-27-2022 Eosinophils/100 WBC (Bld) 0.0 % . [facility] Erythrocyte distribution wid th Auto (RBC) [Ratio]Ordered By: Vishal Agarwal on 10-27-2022 Erythrocyte distribution width (RBC) [Ratio] 17.4 % 11.9-15.3 [facility] Estimated glomerular filtrat ion rate (GFR) non- AmericanOrdered By: Vishal Agarwal on 10-27-2022 GFR/1.73 sq M.predicted among non-blacks MDRD (S/P/Bld) [Vol rate/Area] > 60 mL/Min [facility] Globulin Calc (S) [Mass/Vol] Ordered By: Vishal Agarwal on 10-27-2022 Globulin (S) [Mass/Vol] 3.5 g/dL [facility] Hematocrit Auto (Bld) [Volum e fraction]Ordered By: Vishal Agarwal on 10-27-2022 Hematocrit (Bld) [Volume fraction] 38.7 % 34.0-46.4 [facility] Hemoglobin [Mass/volume] in BloodOrdered By: Vishal Agarwal on 10-27-2022 Hemoglobin (Bld) [Mass/Vol] 12.1 g/dL 11.8-15.4 [facility] Leukocytes [#/volume] correc che for nucleated erythrocytes in Blood by Automated counOrdered By: Vishal Agarwal on 10-27-2022 WBC corrected for nucl RBC Auto (Bld) [#/Vol] 4.5 10*3/uL 3.8-11.6 [facility] Lymphocytes Auto (Bld) [#/Vo l]Ordered By: Vishal Agarwal on 10-27-2022 Lymphocytes (Bld) [#/Vol] 0.5 10*3/uL 1.00-4.8 [facility] Lymphocytes/100 WBC Auto (Bl d)Ordered By: Vishal Agarwal on 10-27-2022 Lymphocytes/100 WBC (Bld) 10.8 % . [facility] MCH Auto (RBC) [Entitic mass ]Ordered By: Vishal Agarwal on 10-27-2022 MCH (RBC) [Entitic mass] 23.7 pg 24.7-34.3 [facility] MCHC Auto (RBC) [Mass/Vol]Or dered By: Vishal Agarwal on 10-27-2022 MCHC (RBC) [Mass/Vol] 31.2 g/dL 32.0-35.0 [facility] MCV Auto (RBC) [Entitic vol] Ordered By: Vishal Agarwal on 10-27-2022 MCV (RBC) [Entitic vol] 76.0 fL 80-100 [facility] Monocyte distribution width [Entitic volume] in Blood by AutomatedOrdered By: Vishal Agarwal on 10-27-2022 Monocyte distribution width Auto (Bld) [Entitic vol] 24.86 % 0.00-20.00 [facility] Comment on above: For adults in ED, MD W > 20.0 may be associated with a higher risk of sepsis during the first 12 hrs of hospital admission Monocytes Auto (Bld) [#/Vol] Ordered By: Vishal Agarwal on 10-27-2022 Monocytes (Bld) [#/Vol] 0.8 10*3/uL 0.0-0.8 [facility] Monocytes/100 WBC Auto (Bld) Ordered By: Vishal Agarwal on 10-27-2022 Monocytes/100 WBC (Bld) 16.8 % . [facility] Neutrophils Auto (Bld) [#/Vo l]Ordered By: Vishal Agarwal on 10-27-2022 Neutrophils (Bld) [#/Vol] 3.2 10*3/uL 1.8-7.7 [facility] Neutrophils/100 WBC Auto (Bl d)Ordered By: Vishal Agarwal on 10-27-2022 Neutrophils/100 WBC (Bld) 72.0 % . [facility] No Panel InformationOrdered By: Vishal Agarwal on 10-27-2022 Estimated GFR () > 60 mL/Min [facility] Comment on above: GFR estimated refere nce range: According to KDOQI guidelines, <60 ml/min/1.73m2 is sufficient to diagnose a patient with chronic kidney disease. Pharmacy Creatinine Clearance (Chem 75.11 [facility] Nucleated erythrocytes [Pres ence] in Blood by Automated countOrdered By: Vishal Agarwal on 10-27-2022 Nucleated RBC Auto Ql (Bld) 0.1 /100{WBC} 0-0.5 [facility] Platelet mean volume Auto (B ld) [Entitic vol]Ordered By: Vishal Agarwal on 10-27-2022 Platelet mean volume (Bld) [Entitic vol] 11.0 fL 6.3-10.7 [facility] Platelets Auto (Bld) [#/Vol] Ordered By: Vishal Agarwal on 10-27-2022 Platelets (Bld) [#/Vol] 148 10*3/uL 150-450 [facility] Protein [Mass/volume] in Ser um or PlasmaOrdered By: Vishal Agarwal on 10-27-2022 Protein [Mass/Vol] 7.6 g/dL 6.1-7.9 [facility] RBC Auto (Bld) [#/Vol]Ordere d By: Vishal Agarwal on 10-27-2022 RBC (Bld) [#/Vol] 5.10 10*6/uL 3.60-5.00 [facility] Serum or plasma alanine gannon otransferase measurement without P-5'-P (enzymatic activiOrdered By: Vishal Agarwal on 10-27-2022 ALT No additional P-5'-P [Catalytic activity/Vol] 18 U/L 10-60 [facility] Serum or plasma albumin/glob ulin mass ratioOrdered By: Vishal Agarwal on 10-27-2022 Albumin/Globulin [Mass ratio] 1.2 {ratio} [facility] Serum or plasma alkaline bull sphatase measurement (enzymatic activity/volume)Ordered By: Vishal Agarwal on 10-27-2022 ALP [Catalytic activity/Vol] 43 U/L 32-92 [facility] Serum or plasma anion gap de terminationOrdered By: Vishla Agarwal on 10-27-2022 Anion gap [Moles/Vol] 13.5 mmol/L 6.0-15.0 [facility] Serum or plasma aspartate am inotransferase measurement (enzymatic activity/volume)Ordered By: Vishal Agarwal on 10-27-2022 AST [Catalytic activity/Vol] 24 U/L 10-42 [facility] Serum or plasma calcium scotty urement (mass/volume)Ordered By: Vishal Agarwal on 10-27-2022 Calcium [Mass/Vol] 9.2 mg/dL 8.2-10.2 [facility] Serum or plasma chloride suzie surement (moles/volume)Ordered By: Vishal Agarwal on 10-27-2022 Chloride [Moles/Vol] 101 mmol/L 95-114 [facility] Serum or plasma glucose scotty urement (mass/volume)Ordered By: Vishal Agarwal on 10-27-2022 Glucose [Mass/Vol] 102 mg/dL 70-100 [facility] Comment on above: ADA recommended refe rence rangeRandom Glucose Reference Range is dependent on time and content of last meal. Glucose of more than 200 mg/dL in a nonstressed, ambulatory subject supports the diagnosis of Diabetes Mellitus. Serum or plasma potassium me asurement (moles/volume)Ordered By: Vishal Agarwal on 10-27-2022 Potassium [Moles/Vol] 3.7 mmol/L 3.5-5.1 [facility] Serum or plasma sodium measu rement (moles/volume)Ordered By: Vishal Agarwal on 10-27-2022 Sodium [Moles/Vol] 134 mmol/L 136-146 [facility] Serum or plasma total biliru bin measurement (mass/volume)Ordered By: Vishal Agarwal on 10-27-2022 Bilirubin [Mass/Vol] 0.8 mg/dL 0.3-1.2 [facility] Serum or plasma total carbon dioxide measurement (moles/volume)Ordered By: Vishal Agarwal on 10-27-2022 CO2 [Moles/Vol] 23.2 mmol/L 22.0-30.0 [facility] Serum or plasma urea nitroge n measurement (mass/volume)Ordered By: Vishal Agarwal on 10-27-2022 Urea nitrogen [Mass/Vol] 10 mg/dL 9- [facility] WBC Auto (Bld) [#/Vol]Ordere d By: Vishal Agarwal on 10-27-2022 WBC (Bld) [#/Vol] 4.5 10*3/uL 3.8-11.6 [facility] HBV surface Ab IA Ql (S)on 11-27-2021 HBV surface Ag Ql (S) Negative Negative [facility] HEP B CORE AB TOTALon 2021 HBV core Ab Ql (S) Negative Negative [facility] HEP B SURF AB QUALon 022 HBV surface Ab Ql (S) Positive Abnormal Negative [facility] HEP C AB IA W/CONF SCRNon HCV Ab Ql (S) Negative Negative [facility] CBC W Auto Differential pane l (Bld)on 04-25-2022 Abs Immature Gran <0.03 <0.10 k/uL [facility] Basophils (Bld) [#/Vol] 0.03 10*3/uL <0.11 k/uL [facility] Basophils/100 WBC (Bld) 0.6 % [facility] Differential cell count method Nom (Bld) Auto [facility] Eosinophils (Bld) [#/Vol] 0.10 10*3/uL <0.46 k/uL [facility] Eosinophils/100 WBC (Bld) 2.0 % [facility] Erythrocyte distribution width (RBC) [Ratio] 13.9 % 11.5 - 15.0 % [facility] Hematocrit (Bld) [Volume fraction] 38.5 % 36.0 - 46.0 % [facility] Hemoglobin (Bld) [Mass/Vol] 12.0 g/dL 11.5 - 15.5 g/dL [facility] Immature Gran % 0.2 % [facility] Lymphocytes (Bld) [#/Vol] 1.54 10*3/uL 1.00 - 4.00 k/uL [facility] Lymphocytes/100 WBC (Bld) 30.2 % [facility] MCH (RBC) [Entitic mass] 25.4 pg Low 26.0 - 34.[address] [facility] MCHC (RBC) [Mass/Vol] 31.2 g/dL 30.5 - 36.0 g/dL [facility] MCV (RBC) [Entitic vol] 81.4 fL 80.0 - 100.[address] [facility] Monocytes (Bld) [#/Vol] 0.66 10*3/uL <0.87 k/uL [facility] Monocytes/100 WBC (Bld) 12.9 % [facility] Neutrophils (Bld) [#/Vol] 2.76 10*3/uL 1.45 - 7.50 k/uL [facility] Neutrophils/100 WBC (Bld) 54.1 % [facility] Nucleated RBC (Bld) [#/Vol] 10*3/uL <0.01 k/uL [facility] Nucleated RBC/100 WBC (Bld) [Ratio] 0.0 /[address] [facility] Platelet mean volume (Bld) [Entitic vol] 13.5 fL High 9.0 - 12.[address] [facility] Platelets (Bld) [#/Vol] 168 10*3/uL 150 - 400 k/uL [facility] RBC (Bld) [#/Vol] 4.73 10*6/uL 3.90 - 5.2 0 m/uL [facility] WBC (Bld) [#/Vol] 5.10 10*3/uL 3.70 - 11. 00 k/uL [facility] URINALYSIS, REFLEX MICROSCOP ICon 04-25-2022 Bilirubin Ql (U) Negative Negative [facility] Clarity (Unsp spec) Clear Clear [facility] Color (U) Light Yellow Yellow [facility] Glucose Test strip (U) [Mass/Vol] Negative Negative [facility] Hemoglobin Ql (U) Negative Negative [facility] Ketones Ql (U) Negative Negative [facility] Leukocyte esterase Test strip Ql (U) Negative Negative [facility] Nitrite Ql (U) Negative Negative [facility] pH (U) 6.0 [pH] 5.0 - 8.0 [facility] Protein (U) [Mass/Vol] Negative Negative [facility] Specific gravity (U) [Rel density] 1.021 1.005 - 1.030 [facility] Urobilinogen Ql (U) Negative Negative [facility] CNPLilli 11-13-2021 TREEN Telephone (STEFFIFV) ----- SMOOTH MARTINEZ ([id number]) 1985 F Date Time Provider Department 11/13/21 MICHELLE GARCIA During your visit today, we recorded the following information about you: Hanna Abel Pss 11/13/2021 2:06 PM Signed Received Saida Discontinuation Questionnaire for provider to complete. Form [...] (FLONASE) 50 mcg/actuation nasal spray Use 1 [place] in each nostril once daily. - MAGNESIUM ORAL Take 1 tablet by mouth twice daily. - Ybyqmggh-Jh-Gwj-Fe-FA ( VITAMIN) tab Take 1 tablet by [...] Encounter Status:Closed by AUDIE GABRIEL on 11/13/21 [facility] Christiano 07-24-2021 CNPN Telephone (NEADFV) ----- SMOOTH MARTINEZ ([id number]) 1985 F Date Time Provider Department 07/24/21 MICHELLE GARCIAFV During your visit today, we recorded the following information about you: Hanna Abel Pss 07/24/2021 12:34 PM Signed Patient called stating she is scheduled for an Ocrevus infusion on August 15, but will be out of state in [place]. She would like to have the infusion done there at . Also,she has new insurance as of May and will need to get the Ocrevus approved through her new insurance ([employer]- ). For questions call patient at [phone] [facility] 07/24/2021 1:21 PM Signed Patient called back with a phone number of [phone] for [facility]. The phone # her [employer] is [phone]. Audie Gabriel RN 07/24/2021 1:51 PM Signed [...] (FLONASE) 50 mcg/actuation nasal spray Use 1 [place] in each nostril once daily. - MAGNESIUM ORAL Take 1 tablet by mouth twice daily. - Qvhsbiuo-Np-Zuw-Fe-FA ( VITAMIN) tab Take 1 tablet by [...] Status:Closed by AUDIE GABRIEL on 07/24/21 [facility] Telephone Encounteron 2020 Installation Service Representative Authentication Interface Message Text Patient was identified by name and date of . Patient given message, patient denied additional questions. ----- Message from Sofy Pandya MD sent at 03/22/2021 12:34 PM EDT ----- Please notify neg HPV with ascus pap, OK to f/u in [address] Sofy Pandya Normal [facility] [employer] [facility] [facility] Telephone Encounteron 2020 Installation Service Representative Authentication Interface Message Text ----- Message from Sofy Pandya MD sent at 03/08/2021 2:28 PM EDT ----- Please notify ok Normal [facility] GC/CHLAMYDIA/TRICHOMONAS AMP LIFICATIONon 03-07-2021 GC/CHLAMYDIA/TRICHOMO BERTIN AMPLIFICATION CHLAMYDIA AMPLIFICATION: Negative GC AMPLIFICATION: Negative TRICHOMONAS AMPLIFICATION: Negative Normal Negative [facility] Comment on above: Order Comment: This test is performed using an automated nucleic acid amplification assay ([employer] Performed By: #### G CT #### [facility] [address] [place] [address] HEPATITIS C ANTIBODYon 03-07 HCV Non-Reactive Normal Nonreactive [facility] Comment on above: Performed By: #### H CV #### [facility] [address] [place] [address], HIV1 HIV2 AGAB SCRNon 2020 HIV AG-AB SCREEN Non-Reactive Normal Non-Reactive The [facility] Comment on above: Order Comment: HIV Information: ???[place] Rev. code 3701.243(E): This information has been [...] #### h iv1 hiv2 agab scrn #### [facility] [address] [place] [address], HUMAN PAPILLOMA VIRUSon 02-09 HPV HIGH RISK Negative Normal Negative The [facility] Comment on above: Order Comment: This test is performed using an automated nucleic acid amplification assay ([employer], [employer] [place], [place]). This assay detects RNA of HPV types 16,18,31,33,35,39,45,51,52,56,58,59,66 and 68 in cervical specimens. Result Comment: A ne gative result does not exclude the possibility of low levels of infection or sampling error. 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 No LMP recorded. Periods are regular [...] Abnormal Pap smear of cervix 2007- in [place]. had LEEP. no abn pap since * [...] Intravenous Push route. * Cholecalciferol 1.25 MG (25860 UT) TABS Take 50,000 Units by mouth once weekly. * Fwrehpor-Uce-Ib-FA (Mynatal) CAPS Take by mouth. No current facility-administered medications on file prior to visit. 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 Normal [facility] Installation Service Representative Authentication Interface Message Text Patient at risk [...] bandage applied. Site appears normal. Normal [facility] [employer] Filter Paper Leadon 10-03-20 20 Lead <2 Normal <5 [facility] Lead Interpretation Normal [facility] Comment on above: Result Comment: Occu pationally exposed adults lead >40 requires medical followup. This test was developed and its performance characteristics determined by [facility]. It has not been cleared or approved by the U.S. Food and Drug Administration. The FDA has determined that such clearance or approval is not necessary. This test is used for clinical purposes. It should not be regarded as investigational or for research. Type of Puncture Capillary Specimen Normal [facility] Vital Signs Date Time Vital Sign Value Performing Clinician Facility 03-04-2024 13:00-0400 Body height 168.[address] MD Work Phone: [facility] 03-04-2024 13:00-0400 Body mass index (BMI) [Ratio] 19.52 kg/m2 Janice Lane MD Work Phone: [facility] 03-04-2024 13:00-0400 Body temperature 98.1 [degF] Janice Lane MD Work Phone: [facility] 03-04-2024 13:00-0400 Body weight 55.[address] MD Work Phone: [facility] 03-04-2024 13:00-0400 Diastolic blood pressure 66 mm[Hg] Janice Lane MD Work Phone: [facility] 03-04-2024 13:00-0400 Heart rate 95 /min Janice Lane MD Work Phone: [facility] 03-04-2024 13:00-0400 SaO2% (BldA) [Mass fraction] 100 % Janice Lane MD Work Phone: [facility] 03-04-2024 13:00-0400 Systolic blood pressure 101 mm[Hg] Janice Lane MD Work Phone: [facility] 12-25-2023 10:54-0500 Body weight 56.8 kg Tor Hernandez APRN.SR. MANAGER MARKETING Work Phone: [facility] 12-25-2023 10:54-0500 Diastolic blood pressure 67 mm[Hg] Tor Hernandez APRN.SR. MANAGER MARKETING Work Phone: [facility] 12-25-2023 10:54-0500 Heart rate 87 /min Tor Hernandez APRN.SR. MANAGER MARKETING Work Phone: [facility] 12-25-2023 10:54-0500 Systolic blood pressure 95 mm[Hg] Tor Hernandez APRN.SR. MANAGER MARKETING Work Phone: [facility] 12-23-2023 13:34-0500 Body mass index (BMI) [Ratio] 20.13 kg/m2 Gael Howard DO Work Phone: [facility] 12-23-2023 13:34-0500 Body temperature 98.91 [degF] Gael Howard DO Work Phone: [facility] 12-23-2023 13:34-0500 Body weight 57.42 kg Gael Howard DO Work Phone: [facility] 12-23-2023 13:34-0500 Diastolic blood pressure 70 mm[Hg] Gael Howard DO Work Phone: [facility] 12-23-2023 13:34-0500 Heart rate 88 /min Gael Howard DO Work Phone: [facility] 12-23-2023 13:34-0500 SaO2% (BldA) [Mass fraction] 99 % Gael Howard DO Work Phone: [facility] 12-23-2023 13:34-0500 Systolic blood pressure 120 mm[Hg] Gael Howard DO Work Phone: [facility] 09-25-2023 13:25-0500 Body temperature 98.29 [degF] Chair Texline Work Phone: [facility] 09-25-2023 13:25-0500 Diastolic blood pressure 72 mm[Hg] Chair Kylah Work Phone: [facility] 09-25-2023 13:25-0500 Heart rate 69 /min Chair Kylah Work Phone: [facility] 09-25-2023 13:25-0500 Respiratory rate 16 /min Chair Kylah Work Phone: [facility] 09-25-2023 13:25-0500 SaO2% (BldA) [Mass fraction] 99 % Chair Texline Work Phone: [facility] 09-25-2023 13:25-0500 Systolic blood pressure 102 mm[Hg] Chair Texline Work Phone: [facility] 07-23-2023 10:36-0400 Body weight 56.7 kg Tor Hernandez APRN.SR. MANAGER MARKETING Work Phone: [facility] 07-23-2023 10:36-0400 Diastolic blood pressure 62 mm[Hg] Tor Hernandez APRN.SR. MANAGER MARKETING Work Phone: [facility] 07-23-2023 10:36-0400 Heart rate 69 /min Tor Hernandez APRN.SR. MANAGER MARKETING Work Phone: [facility] 07-23-2023 10:36-0400 Systolic blood pressure 94 mm[Hg] Tor Hernandez SARAI Work Phone: [facility] 02-12-2023 11:27-0400 Body height 167.[address] MD Work Phone: [facility] 02-12-2023 11:27-0400 Body weight 55.[address] MD Work Phone: [facility] 02-12-2023 11:27-0400 Diastolic blood pressure 67 mm[Hg] Janice Lane MD Work Phone: [facility] 02-12-2023 11:27-0400 Heart rate 60 /min Janice Lane MD Work Phone: [facility] 02-12-2023 11:27-0400 SaO2% (BldA) [Mass fraction] 98 % Janice Lane MD Work Phone: [facility] 02-12-2023 11:27-0400 Systolic blood pressure 107 mm[Hg] Janice Lane MD Work Phone: [facility] 01-17-2023 10:49-0500 Body weight 56.52 kg Jose Raul Santana MD Work Phone: [facility] 01-17-2023 10:49-0500 Diastolic blood pressure 73 mm[Hg] Jose Raul Santana MD Work Phone: [facility] 01-17-2023 10:49-0500 Heart rate 113 /min Jose Raul Santana MD Work Phone: [facility] 01-17-2023 10:49-0500 Systolic blood pressure 111 mm[Hg] Jose Raul Santana MD Work Phone: [facility] 10-28-2022 00:35-0500 Body temperature 100.1 [degF] MD Janice Lane Work Phone: [facility] 10-28-2022 00:35-0500 Diastolic blood pressure 73 mm[Hg] MD Janice Lane Work Phone: [facility] 10-28-2022 00:35-0500 Heart rate 100 /min MD Janice Lane Work Phone: [facility] 10-28-2022 00:35-0500 SaO2% (BldA) [Mass fraction] 98 % MD Janice Lane Work Phone: [facility] 10-28-2022 00:35-0500 Systolic blood pressure 112 mm[Hg] MD Janice Lane Work Phone: [facility] 10-27-2022 23:30-0500 Respiratory rate 16 /min MD Janice Lane Work Phone: [facility] 10-27-2022 21:08-0500 Body height 167.[address] Work Phone: [facility] 10-27-2022 21:08-0500 Body weight 62.[address] Work Phone: [facility] 09-27-2022 13:45-0500 Body temperature 98.8 [degF] Chair Stagee Work Phone: [facility] 09-27-2022 13:45-0500 Diastolic blood pressure 65 mm[Hg] Chair Texline Work Phone: [facility] 09-27-2022 13:45-0500 Heart rate 101 /min Chair Texline Work Phone: [facility] 09-27-2022 13:45-0500 Respiratory rate 16 /min Chair Texline Work Phone: [facility] 09-27-2022 13:45-0500 SaO2% (BldA) [Mass fraction] 99 % Chair Texline Work Phone: [facility] 09-27-2022 13:45-0500 Systolic blood pressure 101 mm[Hg] Chair Kylah Work Phone: [facility] 08-08-2022 07:54-0400 Body weight 61.42 kg Jose Raul Santana MD Work Phone: [facility] 08-08-2022 07:54-0400 Diastolic blood pressure 65 mm[Hg] Jose Raul Santana MD Work Phone: [facility] 08-08-2022 07:54-0400 Heart rate 82 /min Jose Raul Santana MD Work Phone: [facility] 08-08-2022 07:54-0400 Systolic blood pressure 106 mm[Hg] Jose Raul Santana MD Work Phone: [facility] 05-30-2022 14:00-0400 Diastolic blood pressure 55 mm[Hg] Deuce Rileya OTR/L Work Phone: [facility] 05-30-2022 14:00-0400 Systolic blood pressure 96 mm[Hg] Deuce Nicka OTR/L Work Phone: [facility] 04-25-2022 09:09-0400 Body height 168.9 cm Marshall Hanley MD, PhD Work Phone: [facility] 04-25-2022 09:09-0400 Body weight 62.6 kg Marshall Hanley MD, PhD Work Phone: [facility] 04-25-2022 09:09-0400 Diastolic blood pressure 62 mm[Hg] Marshall Hanley MD, PhD Work Phone: [facility] 04-25-2022 09:09-0400 Heart rate 106 /min Marshall Hanley MD, PhD Work Phone: [facility] 04-25-2022 09:09-0400 Systolic blood pressure 109 mm[Hg] Marshall Hanley MD, PhD Work Phone: [facility] 04-02-2022 17:47-0400 Diastolic blood pressure 75 mm[Hg] DO Vishal Agarwal Work Phone: [facility] 04-02-2022 17:47-0400 Heart rate 90 /min DO Vishal Tupa Work Phone: [facility] 04-02-2022 17:47-0400 Respiratory rate 18 /min DO Vishal Tupa Work Phone: [facility] 04-02-2022 17:47-0400 SaO2% (BldA) [Mass fraction] 99 % DO Vishal Tupa Work Phone: [facility] 04-02-2022 17:47-0400 Systolic blood pressure 113 mm[Hg] DO Vishal Tupa Work Phone: [facility] 04-02-2022 15:46-0400 Body height 168.91 cm DO Vishal Tupa Work Phone: [facility] 04-02-2022 15:46-0400 Body mass index (BMI) [Ratio] 21.7 kg/m2 DO Vishal Tupa Work Phone: [facility] 04-02-2022 15:46-0400 Body temperature 98.5 [degF] DO Vishal Tupa Work Phone: [facility] 04-02-2022 15:46-0400 Body weight 62.14 kg DO Vishal Tupa Work Phone: [facility] 03-26-2022 12:45-0400 Body temperature 98.8 [degF] Neur Infusion Work Phone: [facility] 03-26-2022 12:45-0400 Diastolic blood pressure 67 mm[Hg] Neur Infusion Work Phone: [facility] 03-26-2022 12:45-0400 Heart rate 95 /min Neur Infusion Work Phone: [facility] 03-26-2022 12:45-0400 Systolic blood pressure 100 mm[Hg] Neur Infusion Work Phone: [facility] 01-05-2020 11:52-0500 BMI (Body Mass Index) 20.71 kg/m2 Karri Jones DH-Bvuiyoojtx-Fibs [place] [address] Work Phone: 01-05-2020 11:52-0500 Body weight 59.08 kg Karri Jones JG-Iiharrengn-Dy [facility] [address]99 Work Phone: 01-05-2020 11:52-0500 BP Diastolic 74 mm[Hg] Karri Jones DU-Bqqvqtldau-Qs [facility] [address] Work Phone: Comment on above: Location: RUE; Position: Sitting 01-05-2020 11:52-0500 BP Systolic 108 mm[Hg] Karri Jones KD-Mxrabbznet-Xo [facility] 2299 Work Phone: Comment on above: Location: RUE; Position: Sitting 01-05-2020 11:52-0500 BSA (Body Surface Area) 1.68 m2 Karri Jones XW-Hpgeugtwsl-Xctq [place] [address] Work Phone: 01-05-2020 11:52-0500 Height 168.91 cm Karri Jones JI-Gcgpffoege-Ay [facility] 2299 Work Phone: 01-05-2020 11:52-0500 Pulse (Heart Rate) 89 /min Karri Jones MG-Cardiology -[facility]99 Work Phone: 01-05-2020 11:52-0500 Pulse Oximetry 99 % Karri Jones BA-Faxbnjuwla-Yn [facility] 2299 Work Phone: 01-05-2020 11:52-0500 Respiratory Rate 16 /min Karri Jones NA-Hbavwpuegq-A [facility] 2299 Work Phone: 05-05-2019 08:59-0400 BP Diastolic 73 mm[Hg] STAFF NON [facility] 05-05-2019 08:59-0400 BP Systolic 103 mm[Hg[facility] 05-05-2019 08:59-0400 Pulse (Heart Rate) 92 /min STAFF NON [facility] 04-09-2019 12:20-0400 Body weight 71.7 kg [facility] 04-09-2019 12:20-0400 Height 170.21 cm STAFF NON [facility] 04-09-2019 11:00-0400 Pulse Oximetry 98 % STAFF NON [facility] 04-09-2019 11:00-0400 Respiratory Rate 20 /min STAFF NON [facility] Encounters Encounter Date Encounter Type Care Provider Facility Start: 03-22-2024 Orders Only Marshall Hanley MD, PhD Work Phone: [facility] Start: 03-19-2024 End: 03-19-[address] Facility:[facility] Start: 03-17-2024 End: 03-17-2024 ambulatory Clarke Mayte Facility:[facility] Start: 03-17-2024 End: 03-17-[address] Work Phone: [facility] Work Phone: Start: 03-17-2024 End: 03-17-2024 Patient encounter procedure MD Janice Lane Work Phone: [facility] Work Phone: Start: 03-04-2024 End: 03-04-2024 ambulatory Belle Hancock RT(R) Radiology Comment on above: Radio Gen RMP Start: 03-04-2024 End: 03-04-2024 Patient encounter procedure Belle Hancock RT(R) Radiology Comment on above: Chronic insomnia (Pr imary Dx); Multiple sclerosis (HCC); Vitamin D deficiency; Neck pain; Chronic midline low back pain without sciatica Start: 02-24-2024 End: 02-24-2024 ambulatory Clarke Mayte Facility:[facility] Start: 02-24-2024 End: 02-24-[address] Work Phone: [facility] Work Phone: Start: 02-24-2024 End: 02-24-2024 Patient encounter procedure MD Janice Lane Work Phone: [facility] Start: 02-24-2024 Telephone encounter Tor benavidez COMBAT RIFLE CREWMEMBER.SR. MANAGER MARKETING Work Phone: [facility] Start: 02-23-2024 End: 02-23-2024 ambulatory CLARKE HU Not Available Start: 02-20-2024 Orders Only Tor Hernandez COMBAT RIFLE CREWMEMBER.SR. 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 Comment on above: Multiple sclerosis ( HCC) (Primary Dx) Start: 01-20-2024 End: 01-20-2024 ambulatory KELECHI TATUM Not Available Start: 01-19-2024 End: 01-19-2024 ambulatory TOR HERNANDEZ Facility:[facility]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
== END 2024-03-22 19:25 | disposition home or self-care (01) ==
LOC: LAB 19:24
PROVIDERS: Visit Provider Obstetrics & Gynecology
DX: Z01.419 Encounter for gynecological examination (general) (routine) without abnormal findings (principal); N92.6 Irregular menstruation, unspecified; Z32.01 Encounter for pregnancy test, result positive
CPT/HCPCS: 36415; 84702; G0145

== ENCOUNTER 2024-04-01 13:04 | Outpatient (OUT) | payer MEDICARE, MEDICAID, SELFPAY ==
--- NOTE | 2024-04-01 13:06 | US_ITS ---
[place] [id number] Patient Name: CAROL ANN ROMAN MRN: [id number] date: 1985 Sex: F Assigned Patient Location: [facility] Current Patient Location: [facility] Accession/Order Number: [id number] Exam Date: 04/01/2024 13:05 Report Date: 04/01/2024 13:53 At the request of: JOHN VERDIN Procedure: US OB transvaginal EXAMINATION: US OB transvaginal HISTORY: MISSED MENSES COMPARISON: No relevant comparison available. FINDINGS: Freeman intrauterine gestation Gestational sac: 4.31 cm, 9 weeks 5 days CRL: 3.29 cm, 10 weeks 1 day Yolk sac: 3.5 mm Heart rate: 169 bpm Cervix: Closed, 4.3 cm The uterus is anteverted, anteflexed. Adjacent to the gestational sac is an area of hypoechogenicity measuring 0.5 x 1.9 x 2.8 cm. The ovaries are normal in appearance Clinical age: 7 weeks 3 days Clinical ELLIOTT: 11/15/2024 Ultrasound age: 10 weeks 1 day Ultrasound ELLIOTT: 10/27/2024 US/US OB transvaginal IMPRESSION: Viable freeman intrauterine gestation measuring 10 weeks 1 day Subchorionic hematoma Electronically authenticated by: JANICE ERWIN Date: 04/01/2024 13:53
--- OUTSIDE RECORDS SUMMARY | 2024-04-01 13:26 | XMS_ITS | CCD ---
Author Organization [facility] Care Team Providers Care Medical Equipment Repair Technician Name Role Phone NON, STAFF Primary Care [...] Primary Care Provider Clarke Hu Attending Provider JAHAIRA BYERS Attending Unavailable GAEL HOWARD Attending Unavailable GAEL HOWARD Attending Unavailable GAEL HOWARD Attending Unavailable KELECHI TATUM R Attending Unavailable MAYTE, CLARKE Attending Unavailable GAEL HOWARD Attending Unavailable MAYTE, CLARKE Attending Unavailable LACONISKELECHI R Attending Unavailable MAYTE, CLARKE Attending Unavailable Mayte, Clarke Admitting Unavailable DomingoJanice hoffman Primary Care Unavailable Mayte, Clarke Attending Unavailable Mayte, Clarke Attending Unavailable DomingoJanice hoffman Primary Care Unavailable Mayte, Clarke Admitting Unavailable Mayte, Clarke Attending Unavailable DomingoJanice hoffman Primary Care Unavailable Mayte, Clarke Admitting Unavailable Mayte, Clarke Attending Unavailable Janice Lane Primary Care Unavailable Mayte, Clarke Admitting Unavailable JANICE LANE Primary Care Unavailable TOR HERNANDEZ Attending Unavailable JANICE LANE Primary Care Unavailable JOSE RAUL SANTANA Referring Unavailable JANICE LANE Primary Care Unavailable GERMANIA WILKINSON Attending Unavailable MICHELLE GARCIA Referring Unavailable JANICE LANE Primary Care Unavailable SELF Referring Unavailable MIRNA BAXTER Attending Unavailable JANICE LANE Primary Care Unavailable JANICE LANE Attending Unavailable JANICE LANE Primary Care Unavailable JANICE LANE Referring Unavailable JANICE LANE Primary Care Unavailable JANICE LANE Primary Care Unavailable JANICE LANE Referring Unavailable JANICE LANE Primary Care Unavailable IBAN LAZO Attending Unavailable JANICE LANE Primary Care Unavailable JANICE LANE Attending Unavailable JANICE LANE Primary Care Unavailable JANICE LANE Referring Unavailable JANICE LANE Primary Care Unavailable AYAN MARIE Attending Unavailable JANICE LANE Primary Care Unavailable JANICE LANE Referring Unavailable JANICE LANE Primary Care Unavailable NAYLA LOUIS Attending Unavailable JANICE LANE Referring Unavailable TOR HERNANDEZ Attending Unavailable JOSE RAUL SANTANA Referring Unavailable JANICE LANE Primary Care Unavailable TOR HERNANDEZ Referring Unavailable JANICE LANE Primary Care Unavailable Unavailable Unavailable Unavailable Allergies Allergy Classification Reported Allergen(s) Allergy Type Date of Onset Reaction(s) Facility (2 sources) glutenin; Translations: [GLUTEN] Allergy to substance (finding) 0 [facility] Repository (5 sources) Soy protein; Translations: [SOY ALLERGY] Propensity to adverse reactions to drug (disorder) 0 Headache, Unknown [facility] Repository (5 sources) GLUTEN MEAL; Translations: [GLUTEN MEAL] Propensity to adverse reactions to drug (disorder) 9 Hives, Itching, Unknown [facility] Repository (1 source) LECITHIN ORGANIC-SOYBEAN LECITHIN; Translations: [LECITHIN ORGANIC-SOYBEAN LECITHIN] Propensity to adverse reactions to drug (disorder) 9 [facility] Repository (20 sources) Lecithin; Translations: [LECITHIN] Drug Allergy 9 Other: See Comments, Unknown, Itching, GI Upset, Nausea And Vomiting [facility] Work Phone: (20 sources) Soy protein; Translations: [SOY] Drug Intolerance 0 Intolerance [facility] (20 sources) Wheat gluten extract Drug Allergy 9 Other: See Comments, Hives, Itching [facility] (20 sources) Soybean Lecithin; Translations: [LECITHIN, SOY] Drug Allergy 2 GI Upset, Unknown [facility] (4 sources) Other Allergy to substance 0 [...] Comment on above: Take 2 tablets by [facility] every 4 hours as needed. B Complex-C (b complex-vitamin c) tablet (4 sources) take 1 tablet by mouth in the morning B Complex-C (b complex-vitamin c) tablet Take 1 tablet by mouth in the morning. 0 Active benoxinate hydrochloride 4 mg/ml / fluorescein sodium 2.5 mg/ml ophthalmic solution (1 source) Diagnostic Dye Start: 08-14-2022 End: 08-15-2022 fluorescein-benoxina te 0.25-0.4 % 1 Drop (FLURESS) cefdinir 300 [...] morning. 30 tablet 0 08/09/2023 Active cholecalciferol 0.125 mg oral tablet (20 sources) Vitamin D Start: 03-30-2024 End: 03-30-2025 take 1 tablet by mouth once daily cholecalciferol (VITAMIN D-3) 5,000 unit tab Indications: Multiple sclerosis (HCC) Take 1 tablet by mouth once daily. 90 tablet 3 03/30/2024 03/30/2025 Active Start: 12-20-2019 End: 08-08-2022 take 1 capsule by mouth every week cholecalciferol, Vitamin D3, (VITAMIN D3) 1,250 mcg (50,000 unit) cap capsule Indications: Vitamin D deficiency Take 1 capsule by mouth one time a week. 12 capsule 0 04/25/2022 08/08/2022 Discontinued Start: 04-09-2019 take 1 capsule by mo ut once daily Cholecalciferol (Vitamin D3) (Vitamin D3) 1,000 unit Capsule Active 1000 UNIT PO Daily April 09, 2019 12:00am Comment on above: Take 1 capsule by mo uth one time a week. 12 hr dalfampridine [...] tablet by jose ramon th twice daily. Take 1 tablet by jose ramon th two times a day. diphenhydrAMINE hydrochloride 25 [...] Active ferrous sulfate 325 mg oral tablet (20 sources) Start: 02-14-20 End: 03-15-20 23 take 1 tablet by mouth once daily [...] dose nasal spray (20 sources) Corticosteroid Start: 020 take 1 spray(s) nasal route once daily fluticasone (FLONASE) 50 mcg/actuation nasal spray Use 1 [place] in each nostril once daily. 1 g 5 09/01/2020 Active Comment on above: Use 1 [place] in each nostril once daily. 1 ml glatiramer acetate 40 mg/ml prefilled syringe (2 sources) Start: End: inject 40 mg by subcutaneous injection once glatiramer (COPAXONE) 40 mg/mL injection Indications: Multiple sclerosis (HCC) Inject 40 mg subcutaneously every Friday, Friday, and Friday. 12 mL 2 03/31/2024 06/29/2024 Active ibuprofen 600 mg oral tablet (18 sources) Nonsteroidal Anti-inflammatory Drug Start: Ibuprofen Active 600 MG PO Every 6 [...] oral tablet (20 sources) Start: 07-23-2023 End: 09-26-2024 take 1 tablet by mouth once daily at bedtime magnesium oxide (MAG-OX) 400 mg (241.3 mg magnesium) tablet Indications: Multiple sclerosis (HCC) , Spasticity , Constipation, unspecified constipation type Take 1 tablet by mouth daily at bedtime. 30 tablet 5 03/30/2024 09/26/2024 Active take 1 tablet by mouth at bedtim e magnesium oxide (Mag-Ox) 400 MG tablet Take 1 tablet by mouth at bedtime. 0 Active Comment on above: Take 1 tablet by jose ramon th daily at bedtime. melatonin 3 mg oral tablet (20 sources) Start: 01-12-20 take 1 tablet by mouth once daily as needed melatonin 3 mg tablet Take 1 tablet by mouth once daily as needed. 12 tablet 0 01/11/2021 Active Comment on above: Take 1 tablet by jose ramon th once daily as needed. mirtazapine 15 mg oral tablet (10 sources) Start: 03-04-20 take 1 tablet by mouth once daily [...] Active multivitamin with minerals (MULTIPLE VITAMIN-MINERALS) tablet (19 sources) take 1 tablet by mouth every twenty-four hours multivitamin with minerals (MULTIPLE VITAMIN-MINERALS) tablet Take 1 tablet by mouth every 24 hours. 0 Active Comment on above: Take 1 tablet by jose ramon th every 24 hours. Hxsyupcojmba-Uodo-Evl ic Acid (1 source) Start: 04-09-20 19 take 1 tablet by mouth once daily Ksojymqeowog-Tvvt-Rf lic Acid Active 1 TAB Oral Daily April 09, 2019 12:28pm Hksfohaowplm-Frap-Uah ic Acid (Multi-Day With Iron) 18-400 mg-mcg Tablet (5 sources) Start: 04-09-20 19 take 1 tablet by mouth once daily Fqpanugrhrfo-Gtza-Pm lic Acid (Multi-Day With Iron) 18-400 mg-mcg Tablet Active 1 TAB PO Daily April 09, 2019 12:28pm Start: 04-09-2019 take 1 tablet by jose ramon th once daily Dyldbwersbhc-Bzgk-Qbbhe Acid (Multi-Day With Iron) 18-400 mg-mcg Tablet Active 1 TAB PO Daily April 09, 2019 12:00am Start: 04-09-2019 take 1 tablet by jose ramon th once daily Cjjseoygfgfl-Hajp-Ikpnp Acid (Multi-Day With Iron) 18-400 mg-mcg Tablet [...] PHENYLephrine 2.5 % 1 Drop (AK-DILATE, SABINA-SYNEPHRINE) polyethylene glycol 3350 47922 mg powder for oral solution (20 sources) Osmotic Laxative Start: 03-30-2024 End: 05-29-2024 polyethylene glycol 3350 (MIRALAX) 17 gram/dose powder Indications: Multiple sclerosis (HCC) , Constipation, unspecified constipation type Take 17 g by mouth once daily. Dissolve dose in 4 - 8 ounces of liquid and take as directed. 510 g 1 03/30/2024 05/29/2024 Active Start: 04-19-2021 End: 08-14-2022 polyethylene glycol 3350 (MA RALAX) 17 gram/dose powder Indications: Chronic idiopathic constipation [...] ounces of liquid and take as directed. tiZANidine 2 mg oral tablet (20 sources) [...] Take 1 tablet by jose ramon every 8 hours as needed. tropicamide 10 mg/ml ophthalmic solution (1 source) Anticholinergic Start: 08-14-20 End: 08-15-20 tropicamide 1 % 1 Drop (MYDRIACYL) Vitamin B Complex (1 source) Start: 05-31-20 19 take 1 tablet by mouth once [...] every four to six hours Hydrocodone-Acetam inophen ([place]) 5-325 mg Tablet Discontinued 1 TAB PO EVERY 4-6 HOURS April 09, 2019 12:00am April 02, 2022 5:25pm amoxicillin 500 mg oral tablet (19 sources) Penicillin-class Antibacterial End: 03-30-2024 take 2 tablets by mouth twice daily Amoxicillin 500 mg tablet Take 1,000 mg by mouth two times a day. 0 03/30/2024 Discontinued (Course of therapy completed) Comment on above: Take 1,000 mg by jose ramon two times a day. ascorbic acid 500 [...] Take by mouth once d aily. Mag Jqgxb-T4-Qlznbloi Rt Xt (6 sources) Vitamin D Start: 04-09-2019 End: 04-02-2022 Mag Fbwat-Z2-Ehgfmnlw Rt Xt Discontinued TABLET April 09, 2019 12:28pm April 02, 2022 5:24pm Start: 04-09-2019 Mag Oxide-D3-T urmeric Rt Xt Active April 09, 2019 12:28pm Start: 04-09-2019 End: 04-02-2022 Mag Ufiiq-L7-Zqdggmcu Rt Xt Discontinued TABLET April 09, 2019 12:00am April 02, 2022 5:24pm Start: 04-09-2019 End: 04-02-2022 Mag Vwmse-O6-Shtbbqri Rt Xt Discontinued TABLET April 08, 2019 11:00pm April 02, 2022 4:24pm doxepin 3 mg oral tablet (6 sources) Tricyclic Antidepressant Start: 04-09-2019 End: 04-02-2022 take 1 tablet by mouth once daily at bedtime Doxepin (Silenor) 3 mg Tablet Discontinued 3 MG PO Daily at bedtime April 09, 2019 12:00am April 02, 2022 5:22pm ergocalciferol 1.25 mg oral capsule (20 sources) Provitamin D2 Compound Start: 01-30-2023 End: 03-30-2024 take 1 capsule by mouth every week ergocalciferol 50,000 unit capsule (VITAMIN D2, DRISDOL) Indications: Multiple sclerosis (HCC) , Vitamin D deficiency Take 1 capsule by mouth one time a week. 12 capsule 3 03/04/2024 03/30/2024 Discontinued Start: 08-08-2022 take 1 capsule by [facility] every week ergocalciferol 50,000 unit capsule (VITAMIN D2, DRISDOL) Take 1 capsule by mouth one time a week. 12 capsule 3 08/08/2022 Active Comment on above: Take 1 capsule by [facility] one time a week. escitalopram 10 mg oral tablet (6 sources) Serotonin Reuptake Inhibitor Start: 04-09-20 End: 04-02-20 take 1 tablet by mouth once daily Escitalopram Oxalate (Lexapro) 10 mg Tablet Discontinued 10 MG PO Daily April 09, 2019 12:00am April 02, 2022 5:22pm eszopiclone 3 mg oral tablet (7 sources) Start: 04-09-20 End: 04-02-20 take 1 tablet by mouth once daily at bedtime Eszopiclone (Lunesta) 3 mg Tablet Discontinued 3 MG PO Daily at bedtime April 09, 2019 12:00am April 02, 2022 5:23pm levonorgestrel 0.588608 mg/hr intrauterine system (6 sources) Progestin, Progestin-containing Intrauterine Device Start: 04-09-20 Levonorgestrel Active 1 DEVICE Intrauterine Once April [...] Comment on above: Take 1 capsule by [facility] DAILY (6 AM). Magnesium (20 sources) End: 07-23-2023 take 1 tablet by mouth twice daily MAGNESIUM ORAL Take 1 tablet by mouth twice daily. 0 07/23/2023 Discontinued (Course of therapy completed) take 1 tablet by mouth twice linda ly MAGNESIUM ORAL Take 1 tablet by mouth twice daily. 0 Active Comment on above: Take 1 tablet by [facility] twice daily. meclizine hydrochloride 12.5 mg oral tablet (6 sources) Antiemetic Start: 2018 End: 2021 take 12.5 mg by mouth three times daily Meclizine Discontinued 12.5 MG PO Three times daily April 09, 2019 12:00am April 02, 2022 5:23pm metroNIDAZOLE 500 mg oral tablet (19 sources) Nitroimidazole Antimicrobial End: 2023 take 1 tablet by mouth three times daily metroNIDAZOLE (FLAGYL) 500 mg tablet Take 500 mg by mouth three times a day. 0 03/30/2024 Discontinued (Course of therapy completed) Comment on above: Take 500 mg by mouth three times a day. 15 ml natalizumab 20 mg/ml injection (6 sources) Integrin Receptor Antagonist Start: 2018 End: 2021 take 300 mg intravenously every month Natalizumab (Tysabri) 300 mg/15 mL Solution Discontinued 300 MG IV every month April 09, 2019 12:00am April 02, 2022 5:23pm ocrelizumab (OCREVUS INTRAVENOUS) (15 sources) End: 2021 ocrelizumab (OCREVUS INTRAVENOUS) Inject intravenously. 0 08/14/2022 Discontinued ocrelizumab (OCR EVUS INTRAVENOUS) Inject intravenously. 0 Active Comment on above: Inject intravenously . polyethylene glycol, bulk, 100 % powd (20 sources) polyethylene glycol, bulk, 100 % powd as directed. 0 Active Comment on above: as directed. potassium 99 mg extended release oral tablet (1 source) Start: take 1 tablet by mouth once daily Potassium 99 MG Oral Tablet TAKE 1 TABLET DAILY DIRECTED. Refills: 0 Start : 05-Jan-2020 Active microencapsulated potassium chloride 20 meq extended release oral tablet (20 sources) End: potassium chloride ER (K-DUR, KLOR-CON) 20 mEq tablet Take 20 mEq by mouth as needed. 0 01/17/2023 Discontinued Comment on above: Take 20 mEq by mouth as needed. Cgnviuqa-Ye-Dfp-Fe-FA ( VITAMIN) tab (20 sources) Start: take 1 tablet by mouth once daily Vswhtzxx-Lk-Lay-Fe- FA ( VITAMIN) tab Indications: Encounter for supervision of normal first in second trimester Take 1 tablet by mouth once daily. 90 tablet 3 2020 Active Comment on above: Take 1 tablet by jose ramon th once daily. /Iron Oral Tablet (1 source) Start: take 1 tablet by mouth once daily /Iron Oral Tablet TAKE 1 TABLET DAILY. Refills: 0 Start : 05-Jan-2020 Active traZODone hydrochloride 50 mg oral tablet (20 sources) Serotonin Reuptake Inhibitor Start: 023 End: take 1 tablet by mouth at bedtime as needed traZODone (DESYREL) 50 mg tablet Indications: Chronic insomnia Take 1 tablet by mouth at bedtime as needed. 30 tablet 2 07/17/2023 03/30/2024 Discontinued (Course of therapy completed) Comment on above: Take 1 tablet by jose ramon th at bedtime as needed. Vitamin B Complex Oral Tablet (1 source) Start: take 1 tablet by mouth once daily Vitamin B Complex Oral Tablet TAKE 1 TABLET DAILY. Refills: 0 Start : 05-Jan-2020 Active vitamin B complex with C-FA-CU-ZN renal vitamins (DIATX ZN) 5-1.5-25 mg tab (20 sources) Start: 019 End: vitamin B complex with C-FA-CU-ZN renal vitamins [...] sources) Vomiting; Translations: [Vomiting, unspecified] 12-23-2023 Episodic Nonmalignant breast conditions (1 source) Nipple discharge; Translations: [Nipple discharge] Onset: 03-17-2024 Episodic Nutritional deficiencies (4 sources) Vitamin D deficiency; Translations: [Vitamin D deficiency, unspecified] Chronic Other aftercare (2 sources) Surgical follow-up; Translations: [Encounter for follow-up examination after completed treatment for conditions other than malignant neoplasm] 12-11-2023 Episodic Other connective tissue disease (4 sources) Spasticity; Translations: [Cramp and spasm] 07-23-2023 [...] Other nervous system disorders (1 source) 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; Translations: [History of multiple sclerosis] Episodic [...] left ear] 12-23-2023 Episodic Residual codes; unclassified (1 source) Inadequate sleep hygiene; Translations: [Inadequate sleep hygiene] 03-25-2024 Episodic Residual codes; unclassified (1 source) Insomnia; Translations: [Insomnia, unspecified] 03-25-2024 Episodic Spondylosis; intervertebral disc disorders; other back problems (3 sources) Neck pain; Translations: [Cervicalgia] Onset: 03-04-2024 03-04-2024 Episodic Unclassified (1 source) Chronic midline low back pain without sciatica; Translations: [Chronic midline low back pain without sciatica] Onset: 03-04-2024 Unclassified (4 sources) Sleep Efficiency Onset: 03-30-2024 03-30-2024 Viral infection (4 sources) Disease caused by 2019-nCoV; Translations: [COVID-19] 10-28-2022 Episodic Past or Other Problems Problem Classification Problem Date Documented Da te Episodic/Chronic Coma; stupor; and brain damage (10 sources) Daytime somnolence; Translations: [Somnolence] Onset: 07-28-2017 Resolved: 04-20-2021 04-20-2021 Episodic Immunizations and screening for infectious disease (20 sources) Antibody titer - finding; Translations: [Raised antibody titer] Onset: 01-08-2021 01-11-2021 Episodic Other aftercare (12 sources) Patient encounter status; Translations: [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] Onset: 01-08-2021 Resolved: 01-11-2021 Episodic Other bone disease and musculoskeletal deformities (10 sources) Costal chondritis; Translations: [Chondrocostal junction syndrome [Tietze]] Onset: 04-17-2021 Resolved: 04-20-2021 04-20-2021 Episodic Other complications of (10 sources) Elderly primigravida; Translations: [Supervision of elderly primigravida, second trimester] Onset: 2020 Resolved: 01-11-2021 01-11-2021 Episodic Other complications of (10 sources) Previous operation to cervix affecting ; Translations: [Maternal care for other abnormalities of cervix, second trimester] Onset: 2020 Resolved: 01-11-2021 01-11-2021 Episodic Other complications of (10 sources) Poor growth affecting management; Translations: [Maternal care for other known or suspected poor growth, third trimester, not applicable or unspecified] Onset: 12-25-2020 Resolved: 01-11-2021 01-11-2021 Episodic Other complications of (10 sources) Low maternal weight gain; Translations: [Low weight gain in , third trimester] Onset: 01-02-2021 Resolved: 01-11-2021 01-11-2021 Episodic Other complications of (10 sources) Group B Streptococcus carrier; Translations: [Streptococcus [...] 04-17-2021 Episodic Other and delivery including normal (10 sources) Normal ; Translations: [Encounter for supervision [...] Resolved: 07-17-2023 04-17-2021 Episodic Residual codes; unclassified (10 sources) Edema of lower extremity; Translations: [Localized edema] Onset: 04-17-2021 Resolved: 04-20-2021 04-20-2021 Episodic Syncope (20 sources) Syncope; Translations: [Syncope and collapse] Onset: 12-04-2018 Resolved: 07-17-2023 04-17-2021 Episodic Unclassified (10 sources) NO SHOW Onset: 01-22-2021 Resolved: 04-17-2021 04-17-2021 Results Test Name Value Interpretation Reference Range Facility [facility] 03-24-2024 CNPN Telephone (NCCAP) ----- SMOOTH MARTINEZ F ([id number]) 1985 F Date Time Provider Department 03/24/24 TOR HERNANDEZ [facility] During your visit today, we recorded the following information about you: Viviana Sands 03/24/2024 11:00 AM Signed Patient calls to cancel her Ocrevus infusion scheduled for Friday due to having a positive test stating she doesn't believe she can receive this infusion while . Appointment cancelled. Viviana Sands Allergies As of Date: 03/24/2024 Noted Allergy Reaction GLUTEN 03/19/2019 14 - [...] Date Reviewed: 01/19/2024 Reviewed by: Kaitlyn Forbes, piling cutter - Fully Assessed Reason for Visit: Appointment Cancelled [1023] Prescriptions as of 03/24/2024 - ketoconazole (NIZORAL) 2 % shampoo 2-3 times weekly as body wash - ergocalciferol 50,000 unit capsule (VITAMIN D2, DRISDOL) Take 1 capsule by mouth one time a week. - mirtazapine (REMERON) 15 mg tablet Take 1 tablet by mouth daily at bedtime. - Norethindrone, Contraceptive, 0.35 mg tablet Take [...] 1 tablet by mouth every morning. - ketoconazole (NIZORAL) 2 % cream Apply to affected area once daily. Apply qd - traZODone (DESYREL) 50 mg tablet Take [...] (FLONASE) 50 mcg/actuation nasal spray Use 1 [place] in each nostril once daily. Problem List As Of Date 03/24/2024 Noted Resolved Multiple sclerosis (HCC) [G35] 11/15/2019 [...] deficit [R41.841] 07/22/2022 07/17/2023 Encounter Status:Closed by VIVIANA SANDS on 03/24/24 Normal [facility] HCG,Quantitativeon 4 HCG,Quantitative 831731.00 m[iU]/mL Normal [facility] Comment on above: Result Comment: Appr oximate Approximate hCG Gestational Age Range (mIU/ml) (weeks) 0.2-1 5-50 1-2 50-500 2-3 100-5,000 3-4 500-10,000 4-5 1,000-50,000 5-6 10,000-100,000 6-8 15,000-200,000 8-12 10,000-100,000 PERFORMED BY: [place] [address] PATHOLOGIST REFERENCE DATA EXPERT ALEN PRICE M.D. Performed By: #### H CGQNT #### [address] US breast BI limitedon 03-17 US breast BI limited [facility] Main [place] [address] [place] [address] Mammography Report Signed Patient: Smooth Martinez MR#: [id number] : 1985 Acct:[id number] Age/Sex: 38 / F ADM Date: 03/17/24 Loc: [place] Room: Type: [facility] Attending Dr: Clarke Hu Copies to: Clarke Lane MD Ordering Provider: Clarke Hu Date of Service: 03/17/24 MM/MM diagnostic mammo BI w/CAD: RT BREAST LUMP ([id number]) US/US breast BI limited: BILATERAL BREAST LUMPS [...] Leonel Chin M.D.03/17/2024 9:57 AM Dictation Location: [facility] Transcribed By: MEGHANN 03/17/24 0957 Dictated By: Leonel Chin II, MD 03/17/24 0923 Signed By: 03/17/24 0957 Normal [facility] ESR Westergren method (Bld) [Velocity]on 03-05-2024 ESR (Bld) [Velocity] 5 mm/h [facility] Interpretation and review of laboratory results Normal [facility] JOSSELIN BY IFA WITH REFLEXon Nuclear Ab Ql (S) Negative Normal Negative [facility] Comment on above: Order Comment: Speci men Type: BLOOD SPECIMENOrdering Facility: [facility] Address: [address] [place], [place] [id number] Result Comment: Anti -nuclear antibody test is used as an aid in diagnosis of systemic autoimmune diseases. Where positive and clinically warranted, follow-up using disease-specific testing is recommended. Low positive titers are not uncommon with advanced age, certain chronic infections, and malignancies among others. Test methodology: Indirect fluorescence immunoassay (IFA) using HEp-2 cells. Performed By: #### A NAIFR ####[facility] LABCLIA [id number] [place] [address] [place] CBC W Auto Differential pane l (Bld)on 03-04-2024 Basophils (Bld) [#/Vol] 0.04 10*3/uL [facility] Basophils/100 WBC (Bld) 0.5 % [facility] Differential cell count method Nom (Bld) Auto [facility] Eosinophils (Bld) [#/Vol] [facility] Eosinophils/100 WBC (Bld) 0.3 % [facility] Erythrocyte distribution width (RBC) [Ratio] 15.2 % High 11.5 - 15.0 % [facility] Hematocrit (Bld) [Volume fraction] 40.1 % 36.0 - 46.0 % [facility] Hemoglobin (Bld) [Mass/Vol] 12.4 g/dL 11.5 - 15.5 g/dL [facility] Immature granulocytes (Bld) [#/Vol] [facility] Immature granulocytes/100 WBC (Bld) 0.3 % [facility] Interpretation and review of laboratory results Abnormal [facility] Lymphocytes (Bld) [#/Vol] 1.62 10*3/uL [facility] Lymphocytes/100 WBC (Bld) 21.7 % [facility] MCH (RBC) [Entitic mass] 24.1 pg Low 26.0 - 34.0 pg [facility] MCHC (RBC) [Mass/Vol] 30.9 g/dL 30.5 - 36.0 g/dL [facility] MCV (RBC) [Entitic vol] 77.9 fL Low 80.0 - 100.0 fL [facility] Monocytes (Bld) [#/Vol] 0.69 10*3/uL [facility] Monocytes/100 WBC (Bld) 9.2 % [facility] Neutrophils (Bld) [#/Vol] 5.08 10*3/uL [facility] Neutrophils/100 WBC (Bld) 68.0 % [facility] Nucleated RBC (Bld) [#/Vol] [facility] Nucleated RBC/100 WBC (Bld) [Ratio] 0.0 % /100 WBC [facility] Platelet mean volume (Bld) [Entitic vol] [facility] Comment on above: Unable to Report. Platelets (Bld) [#/Vol] 185 10*3/uL [facility] Comment on above: Results checked and verified.No clot detected. RBC (Bld) [#/Vol] 5.15 10*6/uL 3.90 - 5.2 0 m/uL [facility] WBC (Bld) [#/Vol] 7.47 10*3/uL [facility] This is an appended report. These results have been appended to a previously verified report. [facility] Basophils (Bld) [#/Vol] 0.04 10*3/uL Normal <0.11 [facility] Comment on above: Order Comment: Speci men Type: BLOOD SPECIMENOrdering Facility: [facility] Address: [address] [place] [address] Performed By: #### 5 7021-8, 453-7 ####[facility] LABCLIA [id number] [place] [address] [place] Basophils/100 WBC (Bld) 0.5 % Normal [facility] Comment on above: Order Comment: Speci men Type: BLOOD SPECIMENOrdering Facility: [facility] Address: [address] [place] [address] Performed By: #### 5 7021-8, 4536-7 ####[facility] LABCLIA [id number] [place] [address] [place] Differential cell count method Nom (Bld) Auto Normal [facility] Comment on above: Order Comment: Speci men Type: BLOOD SPECIMENOrdering Facility: [facility] Address: [address] [place] [address] Performed By: #### 5 7021-8, 4536-7 ####[facility] LABCLIA [id number] [place] [address] [place] Eosinophils (Bld) [#/Vol] 10*3/uL Normal <0.46 [facility] Comment on above: Order Comment: Speci men Type: BLOOD SPECIMENOrdering Facility: [facility] Address: [address] [place] [address] Performed By: #### 5 7021-8, 7-7 ####[facility] LABCLIA [id number] [place] [address] [place] Eosinophils/100 WBC (Bld) 0.3 % Normal [facility] Comment on above: Order Comment: Speci men Type: BLOOD SPECIMENOrdering Facility: [facility] Address: [address] [place] [address] Performed By: #### 5 7021-8, 4536-7 ####[facility] LABCLIA [id number] [place] [address] [place] Erythrocyte distribution width (RBC) [Ratio] 15.2 % High 11.5-15.0 [facility] Comment on above: Order Comment: Speci men Type: BLOOD SPECIMENOrdering Facility: [facility] Address: [address] [place] [address] Performed By: #### 5 7021-8, 4536-7 ####[facility] LABCLIA [id number] [place] [address] [place] Hematocrit (Bld) [Volume fraction] 40.1 % Normal 36.0-46.0 [facility] Comment on above: Order Comment: Speci men Type: BLOOD SPECIMENOrdering Facility: [facility] Address: [address] [place] [address] Performed By: #### 5 7021-8, 7-7 ####[facility] LABCLIA [id number] [place] [address] [place] Hemoglobin (Bld) [Mass/Vol] 12.4 g/dL Normal 11.5-15.5 [facility] Comment on above: Order Comment: Speci men Type: BLOOD SPECIMENOrdering Facility: [facility] Address: [address] [place] [address] Performed By: #### 5 7021-8, 7-7 ####[facility] LABCLIA [id number] [place] [address] [place] Immature granulocytes (Bld) [#/Vol] 10*3/uL Normal <0.10 [facility] Comment on above: Order Comment: Speci men Type: BLOOD SPECIMENOrdering Facility: [facility] Address: [address] [place] [address] Performed By: #### 5 7021-8, 4536-7 ####[facility] LABCLIA [id number] [place] [address] [place] Immature granulocytes/100 WBC (Bld) 0.3 % Normal [facility] Comment on above: Order Comment: Speci men Type: BLOOD SPECIMENOrdering Facility: [facility] Address: [address] [place] [address] Performed By: #### 5 7021-8, 4536-7 ####[facility] LABIA [id number] [place] [address] [place] Lymphocytes (Bld) [#/Vol] 1.62 10*3/uL Normal 1.00-4.00 [facility] Comment on above: Order Comment: Speci men Type: BLOOD SPECIMENOrdering Facility: [facility] Address: [address] [place] [address] Performed By: #### 5 7021-8, 4536-7 ####[facility] LABCLIA [id number] [place] [address] [place] Lymphocytes/100 WBC (Bld) 21.7 % Normal [facility] Comment on above: Order Comment: Speci men Type: BLOOD SPECIMENOrdering Facility: [facility] Address: [address] [place] [address] Performed By: #### 5 7021-8, 7-7 ####[facility] LABCLIA [id number] [place] [address] [place] MCH (RBC) [Entitic mass] 24.1 pg Low 26.0-34.0 [facility] Comment on above: Order Comment: Speci men Type: BLOOD SPECIMENOrdering Facility: [facility] Address: [address] [place] [address] Performed By: #### 5 7021-8, 4537-7 ####[facility] LABCLIA [id number] [place] [address] [place] MCHC (RBC) [Mass/Vol] 30.9 g/dL Normal 30.5-36.0 [facility] Comment on above: Order Comment: Speci men Type: BLOOD SPECIMENOrdering Facility: [facility] Address: [address] [place] [address] Performed By: #### 5 7021-8, 453-7 ####[facility] LABCLIA [id number] [place] [address] [place] MCV (RBC) [Entitic vol] 77.9 fL Low 80.0-100.0 [facility] Comment on above: Order Comment: Speci men Type: BLOOD SPECIMENOrdering Facility: [facility] Address: [address] [place] [address] Performed By: #### 5 7021-8, 4536-7 ####[facility] LABCLIA [id number] [place] [address] [place] Monocytes (Bld) [#/Vol] 0.69 10*3/uL Normal <0.87 [facility] Comment on above: Order Comment: Speci men Type: BLOOD SPECIMENOrdering Facility: [facility] Address: [address] [place] [address] Performed By: #### 5 7021-8, 4536-7 ####[facility] LABCLIA [id number] [place] [address] [place] Monocytes/100 WBC (Bld) 9.2 % Normal [facility] Comment on above: Order Comment: Speci men Type: BLOOD SPECIMENOrdering Facility: [facility] Address: [address] [place] [address] Performed By: #### 5 7021-8, 4536-7 ####[facility] LABCLIA [id number] [place] [address] [place] Neutrophils (Bld) [#/Vol] 5.08 10*3/uL Normal 1.45-7.50 [facility] Comment on above: Order Comment: Speci men Type: BLOOD SPECIMENOrdering Facility: [facility] Address: [address] [place] [address] Performed By: #### 5 7021-8, 4536-7 ####[facility] LABCLIA [id number] [place] [address] [place] Neutrophils/100 WBC (Bld) 68.0 % Normal [facility] Comment on above: Order Comment: Speci men Type: BLOOD SPECIMENOrdering Facility: [facility] Address: [address] [place] [address] Performed By: #### 5 7021-8, 4536-7 ####[facility] LABCLIA [id number] [place] [address] [place] Nucleated RBC (Bld) [#/Vol] 10*3/uL Normal <0.01 [facility] Comment on above: Order Comment: Speci men Type: BLOOD SPECIMENOrdering Facility: [facility] Address: [address] [place] [address] Performed By: #### 5 7021-8, 4536-7 ####[facility] LABCLIA [id number] [place] [address] [place] Nucleated RBC/100 WBC (Bld) [Ratio] 0.0 /100 WBC Normal [facility] Comment on above: Order Comment: Speci men Type: BLOOD SPECIMENOrdering Facility: [facility] Address: [address] [place] [address] Performed By: #### 5 7021-8, 4536-7 ####[facility] LABCLIA [id number] [place] [address] [place] Platelet mean volume (Bld) [Entitic vol] Normal [facility] Comment on above: Order Comment: Speci men Type: BLOOD SPECIMENOrdering Facility: [facility] Address: [address] [place] [address] Result Comment: Unab le to Report. Performed By: #### 5 7021-8, 4536-7 ####[facility] LABIA [id number] [place] [address] [place] Platelets (Bld) [#/Vol] 185 10*3/uL Normal 150-400 [facility] Comment on above: Order Comment: Speci men Type: BLOOD SPECIMENOrdering Facility: [facility] Address: [address] [place] [address] Result Comment: Resu lts checked and verified.No clot detected. Performed By: #### 5 7021-8, 4536-7 ####[facility] LABIA [id number] [place] [address] [place] RBC (Bld) [#/Vol] 5.15 10*6/uL Normal 3.90-5.20 [facility] Comment on above: Order Comment: Speci men Type: BLOOD SPECIMENOrdering Facility: [facility] Address: [address] [place] [address] Performed By: #### 5 7021-8, 453-7 ####[facility] LABIA [id number] [place] [address] [place] WBC (Bld) [#/Vol] 7.47 10*3/uL Normal 3.70-11.00 [facility] Comment on above: Order Comment: Speci men Type: BLOOD SPECIMENOrdering Facility: [facility] Address: [address] [place] [address] Performed By: #### 5 7021-8, 4537-7 ####[facility] LABEDDIEIA [id number] [place] [address] [place] [address] [facility] CNOVon 03-04-2024 CNOV Office Visit ([facility] ) ----- MARTINEZSMOOTH Beto ([id number]) 1985 F Date Time Provider Department 03/04/24 1:[address] [facility] During your visit today, we recorded the following information about you: Temperature Pulse Blood pressure Weight 98.1 degrees 95/minute 101/66 55.7 kg Height 1.689 m Cintia Caedna MA 03/04/2024 1:00 PM Signed [facility] FACTS Please visit our lab at least 3-5 days before your scheduled appointment to have your lab work drawn, if lab work is ordered. This will allow us the ability to review your lab work results with you during your scheduled visit. [place] [facility]: Lab is open Friday - Friday from 6:30am to 5pm and open 8am -12pm on Saturdays. [facility] [place] [facility]: Friday- 7:30am to 5:30pm. Fridays [...] or pediatrics at any of our [facility] hospital locations and main campus. Janice Lane MD 03/04/2024 3:19 PM Signed Smooth Beto Martinez is a 38 year old female [...] for next physical. Patient Instructions [facility] FACTS Please visit our lab at least 3-5 days before your scheduled appointment to have your lab work drawn, if lab work is ordered. This will allow us the ability to review your lab work results with you during your scheduled visit. [facility] MCGRATH (more content not included)... Normal [facility] CRP SerPl-mCncon 03-04-2024 CRP [Mass/Vol] mg/L Normal <0.9 [facility] Comment on above: Order Comment: Speci men Type: BLOOD SPECIMENOrdering Facility: [facility] Address: [address] [place] [address] Performed By: #### 2 276-4, 29225-3, 86649-7, 1988-03 ####[facility] LABCLIA [id number] [facility] [id number] [address] [place] ESR Westergren method (Bld) [Velocity]on 03-04-2024 ESR (Bld) [Velocity] 5 mm/h Normal 0-20 [facility] Comment on above: Order Comment: Speci men Type: BLOOD SPECIMENOrdering Facility: [facility] Address: [address] [place] [address] Performed By: #### 5 7021-8, 4537-7 ####[facility] LABCLIA [id number] [place] [address] [place] Ferritin SerPl-mCncon 2023 Ferritin [Mass/Vol] 14.2 ng/mL Low 14.7-205.1 [facility] Comment on above: Order Comment: Speci men Type: BLOOD SPECIMENOrdering Facility: [facility] Address: [address] [place] [address] Performed By: #### 2 276-4, 90687-4, 62162-3, 1988-03 ####[facility] LABCLIA [id number] [place] [address] [place] Iron and Iron binding capaci ty panelon 03-04-2024 Iron [Mass/Vol] 90 ug/dL Normal 41-186 [facility] Comment on above: Order Comment: Speci men Type: BLOOD SPECIMENOrdering Facility: [facility] Address: [address] [place] [address] Performed By: #### 2 276-4, 01398-6, 58176-5, 1988-03 ####[facility] LABCLIA [id number] [place] [address] [place] Iron binding capacity [Mass/Vol] 351 ug/dL Normal 232-386 [facility] Comment on above: Order Comment: Speci men Type: BLOOD SPECIMENOrdering Facility: [facility] Address: [address] [place] [address] Performed By: #### 2 276-4, 31214-5, 30003-8, 1988-03 ####[facility] LABCLIA [id number] [place] [address] [place] Iron/TIBC [Molar ratio] 25.6 % Normal 15.0-57.0 [facility] Comment on above: Order Comment: Speci men Type: BLOOD SPECIMENOrdering Facility: [facility] Address: [address] [place] [address] Performed By: #### 2 276-4, 70526-4, 06305-8, 1988-03 ####[facility] LABCLIA [id number] [place] [address] [place] Rheumatoid fact SerPl-aCncon 03-04-2024 Rheumatoid factor Qn [IU]/mL Normal <16 [facility] Comment on above: Order Comment: Speci men Type: BLOOD SPECIMENOrdering Facility: [facility] Address: [address] [place] [address] Performed By: #### 2 276-4, 49493-6, 79864-8, 1988-03 ####[facility] LABCLIA [id number] [place] [address] [place] Urate SerPl-mCncon Urate [Mass/Vol] 3.1 mg/dL Normal 2.5-6.6 [facility] Comment on above: Order Comment: Speci men Type: BLOOD SPECIMEN [facility] Address: [address] [place] [address] Performed By: #### 3 084-1 #### [facility] CLIA [id number] [address] [place] [address] [place] XR CERVICAL 4V AP/LAT/OBLon 03-04-2024 [...] Preserved cervical disc spaces and neural foramina. Manager Licensing: ANGEL Transcribe Date/Time: Mar 08 2024 4:48P Dictated by : VIKTORIYA WALTER MD This examination was interpreted and the report reviewed and electronically signed by: VIKTORIYA WALTER MD on Mar 08 2024 4:50PM EST [id number] Normal [facility] XR LUMBAR 3V AP/LAT/L5-S1on 03-04-2024 [...] Unremarkable radiographic appearance of the lumbar spine. Manager Licensing: [facility] Transcribe Date/Time: Mar 08 2024 4:47P Dictated by : VIKTORIYA WALTER MD This examination was interpreted and the report reviewed and electronically signed by: VIKTORIYA WALTER MD on Mar 08 2024 4:48PM EST [id number] Normal [facility] A1C with Estimated Average G rober 02-24-2024 Glucose [Mass/Vol] 100 mg/dL Normal [facility] Comment on above: Result Comment: PERF ORMED BY: [facility] [address] [place] [address] PATHOLOGIST REFERENCE DATA EXPERT ALEN PRICE M.D. Performed By: #### P TT, HCGQNT, CBC, PT, T4F, A1C WT eA, TSH3 #### [address] HbA1c (Bld) [Mass fraction] 5.1 % Normal 4.3-5.6 [facility] Comment on above: Result Comment: Incr eased risk for diabetes: 5.7 - 6.4 diabetes: >6.4 glycemic control for adults with diabetes: <7.0 Performed By: #### P TT, HCGQNT, CBC, PT, T4F, A1C WTH eA, TSH3 #### [facility] [address] [place] [address] Activated partial thrombopla stin time (aPTT) in platelet poor plasma by coagulation aOrdered By: Clarke Hu on 02-24-2024 aPTT Coag (PPP) [Time] 33.7 s 25.1-36.5 [facility] Comment on above: A hematocrit value g reater than 55% may lead to inaccurate results in coagulation testing. Patients having hematocrit values >55% require a special collection tube for coagulation studies. Please contact the laboratory at [phone] for redraw instructions. Basophils Auto (Bld) [#/Vol] Ordered By: Clarke Hu on 02-24-2024 Basophils (Bld) [#/Vol] 0.0 10*3/uL 0.0-0.2 [facility] Basophils/100 WBC Auto (Bld) Ordered By: Clarke Hu on 02-24-2024 Basophils/100 WBC (Bld) 0.5 % . [facility] CNPLilli 02-24-2024 [facility] ----- SMOOTH MARTINEZ ([id number]) 1985 F Date Time Provider Department 02/24/24 TOR HERNANDEZ During your visit today, we recorded the following information about you: Shereen Scott 02/24/2024 2:33 PM Signed Chris Call Name of caller : Milady Relationship to patient: Barney Osorio Return call phone number : [phone] Reason for call : Other : Brief description of concern : The patient is not considered homebound and they are unable to admit the patient. Mirna Baxter LSW 02/26/2024 10:08 AM Signed Spoke with [facility], Iris Edge regarding this message. Iris stated she encouraged pt to reach out to her insurance company and request an insurance CM to help her find an outside provider to provide services. Request sent to Tor Hernandez APRN.CNP for orders: non-[facility] outpatient PT, OT and SPT? Once she finds an outside provider, then CF can send the orders. DEZ Archer, [facility] Social Work Tor Hernandez APRN.[facility]REE 02/26/2024 10:23 AM Signed Non-[facility] PT, OT, and ENGRAVER SIGNATURE orders placed Tor Hernandez APRN.CNP February 26, 2024 10:23 AM Tor Hernandez APRN.[facility] 02/26/2024 10:24 AM Signed Addended by: TOR [...] Date Reviewed: 01/19/2024 Reviewed by: Kaitlyn Forbes, piling cutter - Fully Assessed Primary Visit Diagnosis:Multiple sclerosis (HCC) [G35] Order(s):CONSULT TO PHYSICAL THERAPY [9032] Order #: [id number]: 1 FUTURE CONSULT TO CLUB CONCIERGE [675272] Order #: [id number]: 1 FUTURE CONSULT TO SPEECH THERAPY [5499797] Order #: [id number]: 1 FUTURE Prescriptions as of 02/26/2024 - [...] (FLONASE) 50 mcg/actuation nasal spray Use 1 [place] in each nostril once daily. Problem List [...] extremity [R6 (more content not included)... Normal [facility] Choriogonadotropin.beta subu nit [Units/volume] in Serum or PlasmaOrdered By: Clarke Hu on 02-24-2024 HCG.beta subunit Qn 791.11 m[IU]/mL [facility] Comment on above: Approximate Approxim ate hCG Gestational Age Range (mIU/ml) (weeks)0.2-1 5-50 1-2 50-500 2-3 100-5,000 3-4 500-10,000 4-5 1,000-50,000 5-6 10,000-100,000 6-8 15,000-200,000 8-12 10,000-100,000 Complete Blood Count Auto Di ffon 02-24-2024 Basophils (Bld) [#/Vol] 0.0 10*3/uL Normal 0.0-0.2 [facility] Comment on above: Result Comment: PERF ORMED BY: [place] [address] PATHOLOGIST REFERENCE DATA EXPERT ALEN PRICE M.D. Performed By: #### P TT, HCGQNT, CBC, PT, T4F, A1C WTH eA, TSH3 #### [place] [address] [place] Basophils/100 WBC (Bld) 0.5 % Normal . [facility] Comment on above: Performed By: #### P TT, HCGQNT, CBC, PT, T4F, A1C WTH eA, TSH3 #### [place] [address] [place] Eosinophils (Bld) [#/Vol] 0.0 10*3/uL Normal 0.0-0.45 [facility] Comment on above: Performed By: #### P TT, HCGQNT, CBC, PT, T4F, A1C WTH eA, TSH3 #### [place] [address] [place] Eosinophils/100 WBC (Bld) 0.2 % Normal . [facility] Comment on above: Performed By: #### P TT, HCGQNT, CBC, PT, T4F, A1C WTH eA, TSH3 #### [address] Erythrocyte distribution width (RBC) [Ratio] 15.2 % Normal 11.9-15.3 [facility] Comment on above: Performed By: #### P TT, HCGQNT, CBC, PT, T4F, A1C WTH eA, TSH3 #### [address] Hematocrit (Bld) [Volume fraction] 36.9 % Normal 34.0-46.4 [facility] Comment on above: Performed By: #### P TT, HCGQNT, CBC, PT, T4F, A1C WTH eA, TSH3 #### [address] Hemoglobin (Bld) [Mass/Vol] 11.7 g/dL Low 11.8-15.4 [facility] Comment on above: Performed By: #### P TT, HCGQNT, CBC, PT, T4F, A1C WTH eA, TSH3 #### [address] Lymphocytes (Bld) [#/Vol] 2.1 10*3/uL Normal 1.00-4.8 [facility] Comment on above: Performed By: #### P TT, HCGQNT, CBC, PT, T4F, A1C WTH eA, TSH3 #### [address] Lymphocytes/100 WBC (Bld) 26.9 % Normal . [facility] Comment on above: Performed By: #### P TT, HCGQNT, CBC, PT, T4F, A1C WTH eA, TSH3 #### [address] MCH (RBC) [Entitic mass] 24.4 pg Low 24.7-34.3 [facility] Comment on above: Performed By: #### P TT, HCGQNT, CBC, PT, T4F, A1C WTH eA, TSH3 #### [address] MCV (RBC) [Entitic vol] 76.5 fL Low 80-100 [facility] Comment on above: Performed By: #### P TT, HCGQNT, CBC, PT, T4F, A1C WTH eA, TSH3 #### [address] Mean Corpuscular HGB Conc 31.8 g/dL Low 32.0-35.0 [facility] Comment on above: Performed By: #### P TT, HCGQNT, CBC, PT, T4F, A1C WTH eA, TSH3 #### [address] Monocytes (Bld) [#/Vol] 0.7 10*3/uL Normal 0.0-0.8 [facility] Comment on above: Performed By: #### P TT, HCGQNT, CBC, PT, T4F, A1C WTH eA, TSH3 #### [place] [address] [place] Monocytes/100 WBC (Bld) 9.3 % Normal . [facility] Comment on above: Performed By: #### P TT, HCGQNT, CBC, PT, T4F, A1C WTH eA, TSH3 #### [place] [address] [place] Neutrophils (Bld) [#/Vol] 5.0 10*3/uL Normal 1.8-7.7 [facility] Comment on above: Performed By: #### P TT, HCGQNT, CBC, PT, T4F, A1C WTH eA, TSH3 #### [address] Neutrophils/100 WBC (Bld) 63.1 % Normal . [facility] Comment on above: Performed By: #### P TT, HCGQNT, CBC, PT, T4F, A1C WTH eA, TSH3 #### [address] NRBC% 0.0 /100{WBC} Normal 0-0.5 [facility] Comment on above: Performed By: #### P TT, HCGQNT, CBC, PT, T4F, A1C WTH eA, TSH3 #### [address] Platelet mean volume (Bld) [Entitic vol] 11.1 fL High 6.3-10.7 [facility] Comment on above: Performed By: #### P TT, HCGQNT, CBC, PT, T4F, A1C WTH eA, TSH3 #### [place] [address] [place] Platelets (Bld) [#/Vol] 187 10*3/uL Normal 150-450 [facility] Comment on above: Performed By: #### P TT, HCGQNT, CBC, PT, T4F, A1C WTH eA, TSH3 #### [facility] [address] RBC (Bld) [#/Vol] 4.82 10*6/uL Normal 3.60-5.00 [facility] Comment on above: Performed By: #### P TT, HCGQNT, CBC, PT, T4F, A1C WTH eA, TSH3 #### [facility] [address] WBC (Bld) [#/Vol] 7.9 10*3/uL Normal 3.8-11.6 [facility] Comment on above: Performed By: #### P TT, HCGQNT, CBC, PT, T4F, A1C WTH eA, TSH3 #### [facility] [address] Eosinophils Auto (Bld) [#/Vo l]Ordered By: Clarke Hu on 02-24-2024 Eosinophils (Bld) [#/Vol] 0.0 10*3/uL 0.0-0.45 [facility] Eosinophils/100 WBC Auto (Bl d)Ordered By: Clarke Hu on 02-24-2024 Eosinophils/100 WBC (Bld) 0.2 % . [facility] Erythrocyte distribution wid th Auto (RBC) [Ratio]Ordered By: Clarke Hu on 02-24-2024 Erythrocyte distribution width (RBC) [Ratio] 15.2 % 11.9-15.3 [facility] Free T4 (Free Thyroxine)on 0 02-24-2024 Free T4 [Mass/Vol] 0.82 ng/dL Normal 0.61-1.12 [facility] [facility] Comment on above: Performed By: #### P TT, HCGQNT, CBC, PT, T4F, A1C WTH eA, TSH3 #### [address] Glucose mean value [Mass/vol ume] in Blood Estimated from glycated hemoglobinOrdered By: Clarke Hu on 02-24-2024 Average glucose Estimated from glycated hemoglobin (Bld) [Mass/Vol] 100 mg/dL [facility] HCG,Quantitativeon HCG,Quantitative 791.11 m[iU]/mL Normal [facility] Comment on above: Result Comment: Appr oximate Approximate hCG Gestational Age Range (mIU/ml) (weeks) 0.2-1 5-50 1-2 50-500 2-3 100-5,000 3-4 500-10,000 4-5 1,000-50,000 5-6 10,000-100,000 6-8 15,000-200,000 8-12 10,000-100,000 PERFORMED BY: [place] [address] PATHOLOGIST REFERENCE DATA EXPERT ALEN PRICE M.D. Performed By: #### P TT, HCGQNT, CBC, PT, T4F, A1C WTH eA, TSH3 #### [address] Hematocrit Auto (Bld) [Volum e fraction]Ordered By: Clarke Hu on 02-24-2024 Hematocrit (Bld) [Volume fraction] 36.9 % 34.0-46.4 [facility] Hemoglobin A1c percentageOrd ered By: Clarke Hu on 02-24-2024 HbA1c (Bld) [Mass fraction] 5.1 % 4.3-5.6 [facility] Comment on above: Increased risk for d iabetes: 5.7 - 6.4diabetes: >6.4glycemic control for adults with diabetes: <7.0 Hemoglobin [Mass/volume] in BloodOrdered By: Clarke Hu on 02-24-2024 Hemoglobin (Bld) [Mass/Vol] 11.7 g/dL 11.8-15.4 [facility] INR in Platelet poor plasma by Coagulation assayOrdered By: Clarke Hu on 02-24-2024 INR Coag (PPP) [Relative time] 1.1 {INR} [facility] Comment on above: INR Therapeutic Rang e [...] RBC Auto (Bld) [#/Vol] 7.9 10*3/uL 3.8-11.6 [facility] Lymphocytes Auto (Bld) [#/Vo l]Ordered By: Clarke Hu on 02-24-2024 Lymphocytes (Bld) [#/Vol] 2.1 10*3/uL 1.00-4.8 [facility] Lymphocytes/100 WBC Auto (Bl d)Ordered By: Clarke Hu on 02-24-2024 Lymphocytes/100 WBC (Bld) 26.9 % . [facility] MCH Auto (RBC) [Entitic mass ]Ordered By: Clarke Hu on 02-24-2024 MCH (RBC) [Entitic mass] 24.4 pg 24.7-34.3 [facility] MCHC Auto (RBC) [Mass/Vol]Or dered By: Clarke Hu on 02-24-2024 MCHC (RBC) [Mass/Vol] 31.8 g/dL 32.0-35.0 [facility] MCV Auto (RBC) [Entitic vol] Ordered By: Clarke Hu on 02-24-2024 MCV (RBC) [Entitic vol] 76.5 fL 80-100 [facility] Monocytes Auto (Bld) [#/Vol] Ordered By: Clarke Hu on 02-24-2024 Monocytes (Bld) [#/Vol] 0.7 10*3/uL 0.0-0.8 [facility] Monocytes/100 WBC Auto (Bld) Ordered By: Clarke Hu on 02-24-2024 Monocytes/100 WBC (Bld) 9.3 % . [facility] Neutrophils Auto (Bld) [#/Vo l]Ordered By: Clarke Hu on 02-24-2024 Neutrophils (Bld) [#/Vol] 5.0 10*3/uL 1.8-7.7 [facility] Neutrophils/100 WBC Auto (Bl d)Ordered By: Clarke Hu on 02-24-2024 Neutrophils/100 WBC (Bld) 63.1 % . [facility] Nucleated erythrocytes [Pres ence] in Blood by Automated countOrdered By: Clarke Hu on 02-24-2024 Nucleated RBC Auto Ql (Bld) 0.0 /100{WBC} 0-0.5 [facility] Partial Thromboplastin Timeo n 02-24-2024 aPTT Coag (Bld) [Time] 33.7 s Normal 25.1-36.5 [facility] Comment on above: Result Comment: A he matocrit value greater than 55% may lead to inaccurate results in coagulation testing. Patients having hematocrit values >55% require a special collection tube for coagulation studies. Please contact the laboratory at [phone] for redraw instructions. PERFORMED BY: [place] [address] PATHOLOGIST REFERENCE DATA EXPERT ALEN PRICE M.D. Performed By: #### P TT, HCGQNT, CBC, PT, T4F, A1C WTH eA, TSH3 #### [facility] [address] [place] [address] Platelet mean volume Auto (B ld) [Entitic vol]Ordered By: Clarke Hu on 02-24-2024 Platelet mean volume (Bld) [Entitic vol] 11.1 fL 6.3-10.7 [facility] Platelets Auto (Bld) [#/Vol] Ordered By: Clarke Hu on 02-24-2024 Platelets (Bld) [#/Vol] 187 10*3/uL 150-450 [facility] Prothrombin Time INRon 02-23 INR Coag (PPP) [Relative time] 1.1 {INR} Normal [facility] Comment on above: [...] valves: 3 - 4.5 Performed By: #### P TT, HCGQNT, CBC, PT, T4F, A1C WTH eA, TSH3 #### [facility] [address] PT Coag (PPP) [Time] 12.2 s Normal 9.0-12.9 [facility] Comment on above: Result Comment: A he matocrit value greater than 55% may lead to inaccurate results in coagulation testing. Patients having hematocrit values >55% require a special collection tube for coagulation studies. Please contact the laboratory at [phone] for redraw instructions. Performed By: #### P TT, HCGQNT, CBC, PT, T4F, A1C WT eA, TSH3 #### [facility] [address] Prothrombin time (PT)Ordered By: Clarke Hu on 02-24-2024 PT Coag (PPP) [Time] 12.2 s 9.0-12.9 [facility] Comment on above: A hematocrit value g reater than 55% may lead to inaccurate results in coagulation testing. Patients having hematocrit values >55% require a special collection tube for coagulation studies. Please contact the laboratory at [phone] for redraw instructions. RBC Auto (Bld) [#/Vol]Ordere d By: Clarke Hu on 02-24-2024 RBC (Bld) [#/Vol] 4.82 10*6/uL 3.60-5.00 [facility] Thyroid Stimulating Hormoneo n 02-24-2024 TSH Qn 0.96 m[IU]/L Normal 0.45-5.33 [facility] Comment on above: Performed By: #### P TT, HCGQNT, CBC, PT, T4F, A1C WTH eA, TSH3 #### [facility] [address] Thyrotropin [Units/volume] i n Serum or PlasmaOrdered By: Clarke Hu on 02-24-2024 TSH Qn 0.96 m[IU]/L 0.45-5.33 [facility] Thyroxine (T4) free [Mass/vo lume] in Serum or PlasmaOrdered By: Clarke Hu on 02-24-2024 Free T4 [Mass/Vol] 0.82 ng/dL 0.61-1.12 [facility] WBC Auto (Bld) [#/Vol]Ordere d By: Clarke Hu on 02-24-2024 WBC (Bld) [#/Vol] 7.9 10*3/uL 3.8-11.6 [facility] CNPNon 02-18-2024 CNPN Telephone ([facility]) ----- SMOOTH MARTINEZ F ([id number]) 1985 F Date Time Provider Department 02/18/24 MIRNA BAXTER During your visit today, we recorded the following information about you: Diana Garcia 02/18/2024 8:55 AM Signed Chris Call Name of caller : [facility] Relationship to patient: Self Return call phone number : [phone] Reason for call : Would like a call back regarding the patient Mirna Baxter LSW 02/18/2024 2:04 PM Signed Responded via e-mail [...] Date Reviewed: 01/19/2024 Reviewed by: Kaitlyn Forbes, piling cutter - Fully Assessed Reason for Visit: Patient [...] (FLONASE) 50 mcg/actuation nasal spray Use 1 [place] in each nostril once daily. Problem List [...] Encounter Status:Closed by MIRNA BAXTER on 02/18/24 [facility] CNPNon 02-03-2024 CNPN Telephone ([facility]) ----- SMOOTH MARTINEZ F ([id number]) 1985 F Date Time Provider Department 02/03/24 MIRNA BAXTER NEMROMEO During your visit today, we recorded the following information about you: Clarice Zepeda HUC 02/03/2024 1:33 PM Signed Ida Call Name of caller : Iris Edge Relationship to patient: [facility] Return call phone number : [phone] Reason for call : Other : Brief description of concern : Has follow up questions Mirna Baxter LSW 02/04/2024 9:37 AM Signed Returned BROOKLYN Simmons's call. Iris stated pt was approved for a [facility] aide one day a week for 45 min to assist with additonal care needs. Iris is requesting an order from the doctor to start care. I will e-mail Iris the order when completed. DEZ Archer, [facility] Social Work Allergies As of Date: [...] Date Reviewed: 01/19/2024 Reviewed by: Kaitlyn Forbes, piling cutter - Fully Assessed Reason for Visit: Patient Question [1477] Prescriptions as of 02/04/2024 - Norethindrone, Contraceptive, [...] Active 30 MG IV EVERY 6 MONTHS May 24th, 2022 5:21pm pt. recieves infusion Q6M for MS - VITAMIN B COMPLEX ORAL Take by mouth. - melatonin 3 mg tablet Take 1 tablet by mouth once daily as needed. - fluticasone (FLONASE) 50 mcg/actuation nasal spray Use 1 [place] in each nostril once daily. Problem List [...] Status:Closed by MIRNA BAXTER on 02/04/24 Normal [facility] MR Thoracic spine WO and W c ontrast Joe 01-19-2024 [facility] MRI THORACIC SPINE WO/W IVCO Non 01-19-2024 MRI THORACIC SPINE WO/W IVCON * * *Final Report* * * DATE OF EXAM: Jan 19 2024 3:15PM BR [id number] - MRI THORACIC SPINE WO/W IVCON [...] identified to suggest active or progressive disease. Manager Licensing: [employer] Transcribe Date/Time: Jan 19 2024 3:31P Dictated by : LOVE WHARTON MD This examination was interpreted and the report reviewed and electronically signed by: LOVE WHARTON MD on Jan 19 2024 3:43PM EST [id number] Normal [facility] CNPNon 01-05-2024 CNPN Telephone ([facility]) ----- MARTINEZSMOOTH GREWAL ([id number]) 1985 F Date Time Provider Department 01/05/24 MIRNA BAXTERROSARIOLuís During your visit today, we recorded the [...] Date Reviewed: 12/25/2023 Reviewed by: Tor Hernandez APRN.OVEREDGER - Fully Assessed Reason for Visit: Appointment [...] (FLONASE) 50 mcg/actuation nasal spray Use 1 [place] in each nostril once daily. Problem List [...] Encounter Status:Closed by NADINE JAMES on 01/05/24 Normal [facility] CNOVon 12-25-2023 CNOV Office Visit (NEMSLR ) ----- SMOOTH MARTINEZ ([id number]) 1985 F Date Time Provider Department 12/25/23 11:00 AM TOR HERNANDEZ During your visit today, we recorded the following information about you: Pulse Blood pressure Weight Last Period 87/minute 95/67 56.8 kg 12/21/23 Tor Hernandez APRN.OVEREDGER 12/25/2023 12:09 PM [facility] FOLLOWUP/ESTABLISHED PATIENT VISIT PRINCIPAL NEUROLOGIC DIAGNOSIS: Multiple Sclerosis DISEASE SUMMARY Date of onset: 03/2007 Date of diagnosis of MS: 03/2007 Disease course at onset: Relapsing-Remitting Current disease course: Progressive without relapses Previous disease therapies: - Betaseron 3576-2846 - Copaxone 5760-8321 - Tysabri 2009-Summer 2019 (stopped due to [...] over 3 weeks following occipital relase - 1513-0522 recurrent OS ON - 8139-6312 several relapses including L numbness, weakness, constipation, urinary urgency - 2019 R weakness and numbness needing a wheelchair, hospitalized at [facility] (off Tysabri x3 months due to planning [...] 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, ot, 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, sw, 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.. Normal [facility] CNPNon 12-25-2023 CNPN Telephone (HCSIND) ----- SMOOTH MARTINEZ F ([id number]) 1985 F Date Time Provider Department 12/25/23 ITKI ELLIOTT HCSIND During your visit today, we recorded the following information about you: Tiki Elliott 12/25/2023 2:08 PM Addendum Spoke with Elizabeth from [facility] and accepted the patient for Home Care. Thank you for the referral of your patient to [facility]. At this time, we are unable to accommodate your patient's needs in a safe and timely fashion. In order to help your patient receive quality home care, we will assist in finding alternate staffing. I have forwarded the referral to [facility], and it is pending. I will notify you when we have an accepting agency. Thank you. Thank you for the referral of your patient to [facility]. At this time, we are unable to accommodate your patient's needs in a safe and timely fashion. In order to help your patient receive quality home care, we will assist in finding alternate staffing. I have forwarded the referral to [facility], and it is declined. I will notify you when we have an accepting agency. Thank you. Thank you for the referral of your patient to [facility]. At this time, we are unable to accommodate your patient's needs in a safe and timely fashion. In order to help your patient receive quality home care, we will assist in finding alternate staffing. I have forwarded the referral to [facility], and it is declined. I will notify [...] Date Reviewed: 12/25/2023 Reviewed by: Tor Hernandez APRN.OVEREDGER - Fully Assessed Reason for Visit: Home [...] (FLONASE) 50 mcg/actuation nasal spray Use 1 [place] in each nostril once daily. Problem List As Of Date 12/25/2023 Noted Resolved Multiple sclerosis (HCC) [G35] 11/15/2019 Chronic insomnia [F51.04] 01/04/2020 AMA (advanced maternal age) primigravida 35+, s*2020 01/11/2021 History of loop electrosurgical excision proced*2020 01/11/2021 Poor growth affecting (more content not included)... Normal [facility] HCG ( test) Ql (U)o n 12-23-2023 Interpretation and review of laboratory results Normal [facility] Preg Test, Ur Negative [facility] - Microbiology an d Antimicrobial susceptibilityon 12-23-2023 SARS-CoV-2 (COVID-19) RNA DEIRDRE+probe Ql (Unsp spec) Negative [facility] No Panel Informationon 12-23 FLU A Negative [facility] FLU B Negative [facility] Interpretation and review of laboratory results Normal [facility] Toño 11-28-2023 L Specimen: [id number] Received: 11/28/23 Status: ALLISON See Num: [id number] Spec Type: Surgical Subm Dr: Clarke Hu Tissues: A Endometrium - Curettings ([facility]C) Procedures: HE/2, Gross/Micro L4 Age/ Patient Sex Location Account Attending Physician Smooth Martinez 38/F LABE[facility] [id number] Clarke Hu SPEC NUM: [id number] RECD: 11/28/23 STATUS: ALLISON SEE NUM: [id number] ALLAN: 11/28/[address]: Clarke Hu ENTERED: 11/28/[address]: Sherry,Lab SPEC TYPE: Surgical DEPT: IDRIS [...] in one cassette labeled A1. CPT Codes 98203 Specimen: [id number] Received: 11/28/23-1309 Status: ALLISON See Num: [id number] Spec Type: Surgical Subm Dr: Clarke Hu Tissues: A Endometrium - Curettings ([facility]C) Procedures: HE/2, Jamila/Micro L4 Patient: Smooth Martinez [id number] (Continued) Signed (signature on file) Edu Watkins MD 12/01/23 [id number] Normal [facility] Social Work (HEMASA) ----- SMOOTH MARTINEZ ([id number]) 1985 F Date Time Provider Department 10/13/23 [...] (FLONASE) 50 mcg/actuation nasal spray Use 1 [place] in each nostril once daily. Problem List [...] Status:Closed by ALEXANDRA HOGAN on 10/13/23 Normal [facility] CBC W Auto Differential pane l (Bld)on 09-25-2023 Basophils (Bld) [#/Vol] 0.03 10*3/uL Normal <0.11 [facility] Comment on above: Order Comment: Speci men Type: BLOOD SPECIMENOrdering Facility: [facility] Address: [address] [place] [address] Performed By: #### 5 7021-8 ####[facility] LABCLIA [id number] [place] [address] Basophils/100 WBC (Bld) 0.8 % Normal [facility] Comment on above: Order Comment: Speci men Type: BLOOD SPECIMENOrdering Facility: [facility] Address: [address] [place] [address] Performed By: #### 5 7021-8 ####[facility] LABCLIA [id number] [place] [address] Differential cell count method Nom (Bld) Auto Normal [facility] Comment on above: Order Comment: Speci men Type: BLOOD SPECIMENOrdering Facility: [facility] Address: [address] [place] [address] Performed By: #### 5 7021-8 ####[facility] LABCLIA [id number] [place] [address] Eosinophils (Bld) [#/Vol] 0.07 10*3/uL Normal <0.46 [facility] Comment on above: Order Comment: Speci men Type: BLOOD SPECIMENOrdering Facility: [facility] Address: [address] [place] [address] Performed By: #### 5 7021-8 ####[facility] LABCLIA [id number] [place] [address] Eosinophils/100 WBC (Bld) 1.8 % Normal [facility] Comment on above: Order Comment: Speci men Type: BLOOD SPECIMENOrdering Facility: [facility] Address: [address] [place] [address] Performed By: #### 5 7021-8 ####[facility] LABCLIA [id number] [place] [address] Erythrocyte distribution width (RBC) [Ratio] 17.1 % High 11.5-15.0 [facility] Comment on above: Order Comment: Speci men Type: BLOOD SPECIMENOrdering Facility: [facility] Address: [address] [place] [address] Performed By: #### 5 7021-8 ####[facility] LABCLIA [id number] [place] [address] Hematocrit (Bld) [Volume fraction] 41.0 % Normal 36.0-46.0 [facility] Comment on above: Order Comment: Speci men Type: BLOOD SPECIMENOrdering Facility: [facility] Address: [address] [place] [address] Performed By: #### 5 7021-8 ####[facility] LABCLIA [id number] [place] [address] Hemoglobin (Bld) [Mass/Vol] 12.5 g/dL Normal 11.5-15.5 [facility] Comment on above: Order Comment: Speci men Type: BLOOD SPECIMENOrdering Facility: [facility] Address: [address] [place] [address] Performed By: #### 5 7021-8 ####[facility] LABCLIA [id number] [place] [address] Immature granulocytes (Bld) [#/Vol] 10*3/uL Normal <0.10 [facility] Comment on above: Order Comment: Speci men Type: BLOOD SPECIMENOrdering Facility: [facility] Address: [address] [place] [address] Performed By: #### 5 7021-8 ####[facility] LABCLIA [id number] [place] [address] Immature granulocytes/100 WBC (Bld) 0.0 % Normal [facility] Comment on above: Order Comment: Speci men Type: BLOOD SPECIMENOrdering Facility: [facility] Address: [address] [place] [address] Performed By: #### 5 7021-8 ####[facility] LABCLIA [id number] [place] [address] Lymphocytes (Bld) [#/Vol] 2.63 10*3/uL Normal 1.00-4.00 [facility] Comment on above: Order Comment: Speci men Type: BLOOD SPECIMENOrdering Facility: [facility] Address: [address] [place] [address] Performed By: #### 5 7021-8 ####[facility] LABCLIA [id number] [place] [address] Lymphocytes/100 WBC (Bld) 66.4 % Normal [facility] Comment on above: Order Comment: Speci men Type: BLOOD SPECIMENOrdering Facility: [facility] Address: [address] [place] [address] Performed By: #### 5 7021-8 ####[facility] LABCLIA [id number] [place] [address] MCH (RBC) [Entitic mass] 23.7 pg Low 26.0-34.0 [facility] Comment on above: Order Comment: Speci men Type: BLOOD SPECIMENOrdering Facility: [facility] Address: [address] [place] [address] Performed By: #### 5 7021-8 ####[facility] LABCLIA [id number] [place] [address] MCHC (RBC) [Mass/Vol] 30.5 g/dL Normal 30.5-36.0 [facility] Comment on above: Order Comment: Speci men Type: BLOOD SPECIMENOrdering Facility: [facility] Address: [address] [place] [address] Performed By: #### 5 7021-8 ####[facility] LABCLIA [id number] [place] [address] MCV (RBC) [Entitic vol] 77.7 fL Low 80.0-100.0 [facility] Comment on above: Order Comment: Speci men Type: BLOOD SPECIMENOrdering Facility: [facility] Address: [address] [place] [address] Performed By: #### 5 7021-8 ####[facility] LABCLIA [id number] [place] [address] Monocytes (Bld) [#/Vol] 0.51 10*3/uL Normal <0.87 [facility] Comment on above: Order Comment: Speci men Type: BLOOD SPECIMENOrdering Facility: [facility] Address: [address] [place] [address] Performed By: #### 5 7021-8 ####[facility] LABCLIA [id number] [place] [address] Monocytes/100 WBC (Bld) 12.9 % Normal [facility] Comment on above: Order Comment: Speci men Type: BLOOD SPECIMENOrdering Facility: [facility] Address: [address] [place] [address] Performed By: #### 5 7021-8 ####[facility] LABCLIA [id number] [place] [address] Neutrophils (Bld) [#/Vol] 0.72 10*3/uL Low 1.45-7.50 [facility] Comment on above: Order Comment: Speci men Type: BLOOD SPECIMENOrdering Facility: [facility] Address: [address] [place] [address] Performed By: #### 5 7021-8 ####[facility] LABCLIA [id number] [place] [address] Neutrophils/100 WBC (Bld) 18.1 % Normal [facility] Comment on above: Order Comment: Speci men Type: BLOOD SPECIMENOrdering Facility: [facility] Address: [address] [place] [address] Performed By: #### 5 7021-8 ####[facility] LABCLIA [id number] [place] [address] Nucleated RBC (Bld) [#/Vol] 10*3/uL Normal <0.01 [facility] Comment on above: Order Comment: Speci men Type: BLOOD SPECIMENOrdering Facility: [facility] Address: [address] [place] [address] Performed By: #### 5 7021-8 ####[facility] LABCLIA [id number] [place] [address] Nucleated RBC/100 WBC (Bld) [Ratio] 0.0 /100 WBC Normal [facility] Comment on above: Order Comment: Speci men Type: BLOOD SPECIMENOrdering Facility: [facility] Address: [address] [place] [address] Performed By: #### 5 7021-8 ####[facility] LABCLIA [id number] [place] [address] Platelet mean volume (Bld) [Entitic vol] Normal [facility] Comment on above: Order Comment: Speci men Type: BLOOD SPECIMENOrdering Facility: [facility] Address: [address] [place] [address] Result Comment: Unab le to Report. Performed By: #### 5 7021-8 ####[facility] LABIA [id number] [place] [address] Platelets (Bld) [#/Vol] 179 10*3/uL Normal 150-400 [facility] Comment on above: Order Comment: Speci men Type: BLOOD SPECIMENOrdering Facility: [facility] Address: [address] [place] [address] Result Comment: Resu lts checked and verified.No clot detected. Performed By: #### 5 7021-8 ####[facility] LABCLIA [id number] [place] [address] RBC (Bld) [#/Vol] 5.28 10*6/uL High 3.90-5.20 [facility] Comment on above: Order Comment: Speci men Type: BLOOD SPECIMENOrdering Facility: [facility] Address: [address] [place] [address] Performed By: #### 5 7021-8 ####[facility] LABCLIA [id number] [place] [id number] WBC (Bld) [#/Vol] 3.96 10*3/uL Normal 3.70-11.00 [facility] Comment on above: Order Comment: Speci men Type: BLOOD SPECIMENOrdering Facility: [facility] Address: [address] [place] [address] Performed By: #### 5 7021-8 ####[facility] LABCLIA [id number] [place] [address] Basophils (Bld) [#/Vol] 0.03 10*3/uL <0.11 k/uL [facility] Basophils/100 WBC (Bld) 0.8 % [facility] Differential cell count method Nom (Bld) Auto [facility] Eosinophils (Bld) [#/Vol] 0.07 10*3/uL <0.46 k/uL [facility] Eosinophils/100 WBC (Bld) 1.8 % [facility] Erythrocyte distribution width (RBC) [Ratio] 17.1 % High 11.5 - 15.0 % [facility] Hematocrit (Bld) [Volume fraction] 41.0 % 36.0 - 46.0 % [facility] Hemoglobin (Bld) [Mass/Vol] 12.5 g/dL 11.5 - 15.5 g/dL [facility] Immature granulocytes (Bld) [#/Vol] <0.10 k/uL [facility] Immature granulocytes/100 WBC (Bld) 0.0 % [facility] Lymphocytes (Bld) [#/Vol] 2.63 10*3/uL 1.00 - 4.00 k/uL [facility] Lymphocytes/100 WBC (Bld) 66.4 % [facility] MCH (RBC) [Entitic mass] 23.7 pg Low 26.0 - 34.0 pg [facility] MCHC (RBC) [Mass/Vol] 30.5 g/dL 30.5 - 36.0 g/dL [facility] MCV (RBC) [Entitic vol] 77.7 fL Low 80.0 - 100.0 fL [facility] Monocytes (Bld) [#/Vol] 0.51 10*3/uL <0.87 k/uL [facility] Monocytes/100 WBC (Bld) 12.9 % [facility] Neutrophils (Bld) [#/Vol] 0.72 10*3/uL Low 1.45 - 7.50 k/uL [facility] Neutrophils/100 WBC (Bld) 18.1 % [facility] Nucleated RBC (Bld) [#/Vol] <0.01 k/uL [facility] Nucleated RBC/100 WBC (Bld) [Ratio] 0.0 /100 WBC [facility] Platelet mean volume (Bld) [Entitic vol] [facility] Platelets (Bld) [#/Vol] 179 10*3/uL 150 - 400 k/uL [facility] RBC (Bld) [#/Vol] 5.28 10*6/uL High 3.90 - 5.2 0 m/uL [facility] WBC (Bld) [#/Vol] 3.96 10*3/uL 3.70 - 11. 00 k/uL [facility] CD19 ABSOLUTE COUNTon 2022 CD3-CD19+ cells (Bld) [#/Vol] 0 cells/uL Low 75-660 [facility] Comment on above: Order Comment: Speci men Type: BLOOD SPECIMEN Ordering Facility: [facility] Address: [address] [place] [address] Performed By: #### 3 084-1 #### [facility] CLIA [id number] [address] [place] [address] [place] CD3-CD19+ cells/100 cells (Bld) 0 % Low 5-22 [facility] Comment on above: Order Comment: Speci men Type: BLOOD SPECIMEN Ordering Facility: [facility] Address: [address] [place] [address] Performed By: #### 3 084-1 #### [facility] CLIA [id number] [address] [place] [address] [place] Lymphocytes/100 WBC FC (Bld) Normal [facility] Comment on above: Order Comment: Speci men Type: BLOOD SPECIMEN Ordering Facility: [facility] Address: [address] [place] [address] Performed By: #### 3 084-1 #### [facility] CLIA [id number] [address] [place] [address] [facility] CNPLilli 09-25-2023 CNPN Telephone (HEMTSA) ----- SMOOTH MARTINEZ ([id number]) 1985 F Date Time Provider Department 09/25/23 KATHERYN ESPINO HEMTSA During your visit today, we recorded the following information about you: Katheryn Espino RN 09/25/2023 10:40 AM Signed Smooth is in our [place] clinic for her Ocrevus today. I just wanted to point out her ANC has dropped to 0.72 from today's cbc and this doesn't look normal for her. Patient feels fine with no complaints and no fever. Thank you, Kahteryn Espino RN Allergies As of Date: 09/25/2023 [...] [D70.2] Order(s):CBC + DIFF [SQCBCDIF] Order #: [id number] FUTURE Prescriptions as of 09/29/2023 - metroNIDAZOLE [...] (FLONASE) 50 mcg/actuation nasal spray Use 1 [place] in each nostril once daily. Problem List [...] Status:Closed by KATHERYN ESPINO on 09/29/23 Normal [facility] Comprehensive metabolic 2000 panelon 09-25-2023 Albumin [Mass/Vol] 4.5 g/dL Normal 3.9-4.9 [facility] Comment on above: Order Comment: Speci men Type: BLOOD SPECIMENOrdering Facility: [facility] Address: [address] [place] [address] Performed By: #### 2 4323-8 ####[facility] [id number] [place] [address] ALP [Catalytic activity/Vol] 58 U/L Normal 34-123 [facility] Comment on above: Order Comment: Speci men Type: BLOOD SPECIMENOrdering Facility: [facility] Address: [address] [place] [address] Performed By: #### 2 4323-8 ####[facility]CLIA [id number] [place] [address] ALT [Catalytic activity/Vol] 11 U/L Normal 7-38 [facility] Comment on above: Order Comment: Speci men Type: BLOOD SPECIMENOrdering Facility: [facility] Address: [address] [place] [address] Performed By: #### 2 4323-8 ####[facility]CLIA [id number] [place] [address] Anion gap [Moles/Vol] 9 mmol/L Normal 9-18 [facility] Comment on above: Order Comment: Speci men Type: BLOOD SPECIMENOrdering Facility: [facility] Address: [address] [place] [address] Performed By: #### 2 4323-8 ####[facility]CLIA [id number] [place] [address] AST [Catalytic activity/Vol] 17 U/L Normal 13-35 [facility] Comment on above: Order Comment: Speci men Type: BLOOD SPECIMENOrdering Facility: [facility] Address: [address] [place] [address] Performed By: #### 2 4323-8 ####[facility]CLIA [id number] [place] [address] Bilirubin [Mass/Vol] 0.5 mg/dL Normal 0.2-1.3 [facility] Comment on above: Order Comment: Speci men Type: BLOOD SPECIMENOrdering Facility: [facility] Address: [address] [place] [address] Performed By: #### 2 4323-8 ####[facility]CLIA [id number] [place] [address] Calcium [Mass/Vol] 9.5 mg/dL Normal 8.5-10.2 [facility] Comment on above: Order Comment: Speci men Type: BLOOD SPECIMENOrdering Facility: [facility] Address: [address] [place] [address] Performed By: #### 2 4323-8 ####[facility]CLIA [id number] [place] [address] Chloride [Moles/Vol] 106 mmol/L High 97-105 [facility] Comment on above: Order Comment: Speci men Type: BLOOD SPECIMENOrdering Facility: [facility] Address: [address] [place] [address] Performed By: #### 2 4323-8 ####[facility]CLIA [id number] [place] [address] CO2 [Moles/Vol] 26 mmol/L Normal 22-30 [facility] Comment on above: Order Comment: Speci men Type: BLOOD SPECIMENOrdering Facility: [facility] Address: [address] [place] [address] Performed By: #### 2 4323-8 ####[facility]CLIA [id number] [place] [address] Creatinine [Mass/Vol] 0.95 mg/dL Normal 0.58-0.96 [facility] Comment on above: Order Comment: Speci men Type: BLOOD SPECIMENOrdering Facility: [facility] Address: [address] [place] [address] Performed By: #### 2 4323-8 ####[facility]CLIA [id number] [place] [address] Creatinine and Glomerular filtration rate.predicted panel (S/P/Bld) 79 mL/min/1.73m??? Normal >=60 [facility] Comment on above: Order Comment: Speci men Type: BLOOD SPECIMENOrdering Facility: [facility] Address: [address] [place] [address] Result Comment: Priscila mated Glomerular Filtration Rate [...] actual GFR. Performed By: #### 2 4323-8 ####[facility]IA [id number] [place] [address] Glucose [Mass/Vol] 89 mg/dL Normal 74-99 [facility] Comment on above: Order Comment: Speci men Type: BLOOD SPECIMENOrdering Facility: [facility] Address: [address] [place] [address] Result Comment: The [place] [employer] (ADA) provides guidance for cutoff [...] Standards of Medical Care in Diabetes 2016, [place] [employer]. Diabetes Care. 2016.39(Suppl 1). Performed By: #### 2 4323-8 ####[facility]CLIA [id number] [place] [address] Potassium [Moles/Vol] 3.6 mmol/L Low 3.7-5.1 [facility] Comment on above: Order Comment: Speci men Type: BLOOD SPECIMENOrdering Facility: [facility] Address: [address] [place] [address] Performed By: #### 2 4323-8 ####[facility]CLIA [id number] [place] [address] Protein [Mass/Vol] 7.4 g/dL Normal 6.3-8.0 [facility] Comment on above: Order Comment: Speci men Type: BLOOD SPECIMENOrdering Facility: [facility] Address: [address] [place] [address] Performed By: #### 2 4323-8 ####[facility]IA [id number] [place] [address] Sodium [Moles/Vol] 141 mmol/L Normal 136-144 [facility] Comment on above: Order Comment: Speci men Type: BLOOD SPECIMENOrdering Facility: [facility] Address: [address] [place] [address] Performed By: #### 2 4323-8 ####[facility]CLIA [id number] [place] [address] Urea nitrogen [Mass/Vol] 14 mg/dL Normal 7-21 [facility] Comment on above: Order Comment: Speci men Type: BLOOD SPECIMENOrdering Facility: [facility] Address: [address] [place] [address] Performed By: #### 2 4323-8 ####[facility]CLIA [id number] [place] [address] Albumin [Mass/Vol] 4.5 g/dL 3.9 - 4.9 g/dL [facility] ALP [Catalytic activity/Vol] 58 U/L 34 - 123 U/L [facility] ALT [Catalytic activity/Vol] 11 U/L 7 - 38 U/L [facility] Anion gap [Moles/Vol] 9 mmol/L 9 - 18 mmol/L [facility] AST [Catalytic activity/Vol] 17 U/L 13 - 35 U/L [facility] Bilirubin [Mass/Vol] 0.5 mg/dL 0.2 - 1 .3 mg/dL [facility] Calcium [Mass/Vol] 9.5 mg/dL 8.5 - 10. 2 mg/dL [facility] Chloride [Moles/Vol] 106 mmol/L High 97 - 10 5 mmol/L [facility] CO2 [Moles/Vol] 26 mmol/L 22 - 30 mmol/L [facility] Creatinine [Mass/Vol] 0.95 mg/dL 0.58 - 0.96 mg/dL [facility] Estimated Glomerular Filtration Rate 79 mL/min/1.73m >=60 mL/min/1.73m [facility] Glucose [Mass/Vol] 89 mg/dL 74 - 99 mg/dL [facility] Potassium [Moles/Vol] 3.6 mmol/L Low 3.7 - 5.1 mmol/L [facility] Protein [Mass/Vol] 7.4 g/dL 6.3 - 8.0 g/dL [facility] Sodium [Moles/Vol] 141 mmol/L 136 - 144 mmol/L [facility] Urea nitrogen [Mass/Vol] 14 mg/dL 7 - 21 mg/dL [facility] HBV core Ab Ser Qlon 023 HBV core Ab Ql (S) Negative Normal Negative [facility] Comment on above: Order Comment: Speci men Type: BLOOD SPECIMENOrdering Facility: [facility] Address: [address] [place] [address] Result Comment: No e vidence of current or past infection with Hepatitis B virus. Should recent infection be suspected, repeat testing may be considered 3-4 weeks after this draw. Performed By: #### 5 195-3, 52106-7, 27015-5 ####[facility]IA [id number] [place] [address] [place] HBV surface Ab Ql (S)on 09-10 HBV surface Ab Qn (S) 528.76 mIU/mL [facility] HBV surface Ab Qn (S) 528.76 mIU/mL Normal [facility] Comment on above: Order Comment: Speci men Type: BLOOD SPECIMENOrdering Facility: [facility] Address: [address] [place] [address] Result Comment: <8 m IU/mL: No serological evidence of immunity to Hepatitis B Virus. >/= 8 to <12 mIU/mL: No serological evidence of immunity to Hepatitis B Virus. >/= 12 mIU/mL: Consistent with serological evidence of immunity to Hepatitis B Virus. Performed By: #### 5 195-3, 72461-4, 55165-7 ####[facility] LABIA [id number] [address] [place] HBV surface Ab Ser Qlon 09-10 HBV surface Ab Ql (S) Positive Normal [facility] Comment on above: Order Comment: Speci men Type: BLOOD SPECIMENOrdering Facility: [facility] Address: [address] [place] [address] Result Comment: Cons istent with serological evidence of immunity to Hepatitis B Virus. Performed By: #### 5 195-3, 03247-0, 90877-1 ####[facility]IA [id number] [place] [address] [place] HBV surface Ag Ser Qlon 09-10 HBV surface Ag Ql (S) Negative Normal Negative [facility] Comment on above: Order Comment: Speci men Type: BLOOD SPECIMENOrdering Facility: [facility] Address: [address] [place] [address] Performed By: #### 5 195-3, 55947-8, 50335-3 ####[facility] LABCLIA [id number] [place] [address] [place] HCV Ab Ser Qlon 09-25-2023 HCV Ab Ql (S) Negative Normal Negative [facility] Comment on above: Order Comment: Speci men Type: BLOOD SPECIMENOrdering Facility: [facility] Address: [address] [place] [address] Result Comment: The result suggests no evidence of active infection with Hepatitis C virus. Should recent infection be suspected, repeat testing may be considered 4-6 weeks after this draw. Performed By: #### 1 6128-1 ####[facility]CLIA [id number] [place] [address] [place] HEP B CORE AB TOTALon 2022 HBV core Ab Ql (S) Negative Negative [facility] HEP B SURF ABon 09-25-2023 HBV surface Ab Ql (S) Positive [facility] HEP B SURF AG SCRNon 023 HBV surface Ag Ql (S) Negative Negative [facility] HEPATITIS C ANTIBODY IA WITH CONFIRMATIONon 09-25-2023 HCV Ab Ql (S) Negative Negative [facility] B-HCG SerPl-aCncon 3 HCG.beta subunit Qn m[IU]/mL Normal <5.0 [facility] Comment on above: Order Comment: Speci men Type: BLOOD SPECIMENOrdering Facility: [facility] Address: [address] [place] [address] Result Comment: Nega tive Performed By: #### 2 1198-7 ####[facility]CLIA [id number] [place] [address] [place] IgG SerPl-mCncon 09-24-2023 IgG [Mass/Vol] 1281 mg/dL Normal 700-1600 [facility] Comment on above: Order Comment: Speci men Type: BLOOD SPECIMEN [facility] Address: [address] [place] [address] Performed By: #### 3 084-1 #### [facility] CLIA [id number] [address] [place], [place] [address] [place] [address] [place] IgM SerPl-mCncon 09-24-2023 IgM [Mass/Vol] 128 mg/dL Normal 40-230 [facility] Comment on above: Order Comment: Speci men Type: BLOOD SPECIMEN [facility] Address: [address] [place] [address] Performed By: #### 3 084-1 #### [facility] CLIA [id number] [address] [place], [place] [address] [place] [address] [place] CNPNon 08-27-2023 CNPN Telephone ([facility]) ----- SMOOTH MARTINEZ F ([id number]) 1985 F Date Time Provider Department 08/27/[address] [facility] During your visit today, we [...] Primary Visit Diagnosis:Uterine polyp [N84.0] Order(s):CONSULT TO FIGURE REFINISHER AND REPAIRER [9021] Order #: [id number]: 1 FUTURE Prescriptions as of 08/27/2023 - [...] (FLONASE) 50 mcg/actuation nasal spray Use 1 [place] in each nostril once daily. Problem List [...] Status:Closed by JANICE LANE on 08/27/23 Normal [facility] PELVIC US WHIon 08-26-2023 [facility] CBC W Auto Differential pane l (Bld)on 08-19-2023 Basophils (Bld) [#/Vol] 0.05 10*3/uL Normal <0.11 [facility] Comment on above: Order Comment: Speci men Type: BLOOD SPECIMENOrdering Facility: [facility] Address: [address] [place] [address] Performed By: #### 5 7021-8 ####[facility]IA [id number] [place] [address] [place] [facility] Basophils/100 WBC (Bld) 0.7 % Normal [facility] Comment on above: Order Comment: Speci men Type: BLOOD SPECIMENOrdering Facility: [facility] Address: [address] [place] [address] Performed By: #### 5 7021-8 ####[facility] LABIA [id number] [place] [address] [place] [facility] Differential cell count method Nom (Bld) Auto Normal [facility] Comment on above: Order Comment: Speci men Type: BLOOD SPECIMENOrdering Facility: [facility] Address: [address] [place] [address] Performed By: #### 5 7021-8 ####[facility] LABIA [id number] [place] [id number] [place] Eosinophils (Bld) [#/Vol] 0.10 10*3/uL Normal <0.46 [facility] Comment on above: Order Comment: Speci men Type: BLOOD SPECIMENOrdering Facility: [facility] Address: [address] [place] [address] Performed By: #### 5 7021-8 ####[facility] LABIA [id number] [place] [id number] [place] Eosinophils/100 WBC (Bld) 1.5 % Normal [facility] Comment on above: Order Comment: Speci men Type: BLOOD SPECIMENOrdering Facility: [facility] Address: [address] [place] [address] Performed By: #### 5 7021-8 ####[facility] LABCLIA [id number] [place] [address] [place] Erythrocyte distribution width (RBC) [Ratio] 24.4 % High 11.5-15.0 [facility] Comment on above: Order Comment: Speci men Type: BLOOD SPECIMENOrdering Facility: [facility] Address: [address] [place] [address] Performed By: #### 5 7021-8 ####[facility] LABCLIA [id number] [place] [address] [place] Hematocrit (Bld) [Volume fraction] 35.6 % Low 36.0-46.0 [facility] Comment on above: Order Comment: Speci men Type: BLOOD SPECIMENOrdering Facility: [facility] Address: [address] [place] [address] Performed By: #### 5 7021-8 ####[facility] LABIA [id number] [place] [address] [place] Hemoglobin (Bld) [Mass/Vol] 10.6 g/dL Low 11.5-15.5 [facility] Comment on above: Order Comment: Speci men Type: BLOOD SPECIMENOrdering Facility: [facility] Address: [address] [place] [address] Performed By: #### 5 7021-8 ####[facility] LABIA [id number] [place] [address] [place] Immature granulocytes (Bld) [#/Vol] 10*3/uL Normal <0.10 [facility] Comment on above: Order Comment: Speci men Type: BLOOD SPECIMENOrdering Facility: [facility] Address: [address] [place] [address] Performed By: #### 5 7021-8 ####[facility] LABIA [id number] [place] [address] [place] Immature granulocytes/100 WBC (Bld) 0.3 % Normal [facility] Comment on above: Order Comment: Speci men Type: BLOOD SPECIMENOrdering Facility: [facility] Address: [address] [place] [address] Performed By: #### 5 7021-8 ####[facility]ERSLibby [facility] LABIA [id number] [place] [address] [place] Lymphocytes (Bld) [#/Vol] 2.27 10*3/uL Normal 1.00-4.00 [facility] Comment on above: Order Comment: Speci men Type: BLOOD SPECIMENOrdering Facility: [facility] Address: [address] [place] [address] Performed By: #### 5 7021-8 ####[facility]ITAL[facility]ANO [facility] LABCLIA [id number] [place] [address] [place] Lymphocytes/100 WBC (Bld) 32.9 % Normal [facility] Comment on above: Order Comment: Speci men Type: BLOOD SPECIMENOrdering Facility: [facility] Address: [address] [place] [address] Performed By: #### 5 7021-8 ####[facility] LABCLIA [id number] [place] [id number] [place] MCH (RBC) [Entitic mass] 22.1 pg Low 26.0-34.0 [facility] Comment on above: Order Comment: Speci men Type: BLOOD SPECIMENOrdering Facility: [facility] Address: [address] [place] [address] Performed By: #### 5 7021-8 ####[facility] LABCLIA [id number] [place] [address] [place] MCHC (RBC) [Mass/Vol] 29.8 g/dL Low 30.5-36.0 [facility] Comment on above: Order Comment: Speci men Type: BLOOD SPECIMENOrdering Facility: [facility] Address: [address] [place] [address] Performed By: #### 5 7021-8 ####[facility] LABIA [id number] [place] [id number] [place] MCV (RBC) [Entitic vol] 74.3 fL Low 80.0-100.0 [facility] Comment on above: Order Comment: Speci men Type: BLOOD SPECIMENOrdering Facility: [facility] Address: [address] [place] [address] Performed By: #### 5 7021-8 ####[facility] LABCLIA [id number] [place] [address] [place] Monocytes (Bld) [#/Vol] 0.52 10*3/uL Normal <0.87 [facility] Comment on above: Order Comment: Speci men Type: BLOOD SPECIMENOrdering Facility: [facility] Address: [address] [place] [address] Performed By: #### 5 7021-8 ####[facility] LABCLIA [id number] [place] [address] [place] Monocytes/100 WBC (Bld) 7.5 % Normal [facility] Comment on above: Order Comment: Speci men Type: BLOOD SPECIMENOrdering Facility: [facility] Address: [address] [place] [address] Performed By: #### 5 7021-8 ####[facility] LABIA [id number] [place] [address] [place] Neutrophils (Bld) [#/Vol] 3.93 10*3/uL Normal 1.45-7.50 [facility] Comment on above: Order Comment: Speci men Type: BLOOD SPECIMENOrdering Facility: [facility] Address: [address] [place] [address] Performed By: #### 5 7021-8 ####[facility] LABIA [id number] [place] [address] [place] Neutrophils/100 WBC (Bld) 57.1 % Normal [facility] Comment on above: Order Comment: Speci men Type: BLOOD SPECIMENOrdering Facility: [facility] Address: [address] [place] [address] Performed By: #### 5 7021-8 ####[facility] LABIA [id number] [place] [address] [place] Nucleated RBC (Bld) [#/Vol] 10*3/uL Normal <0.01 [facility] Comment on above: Order Comment: Speci men Type: BLOOD SPECIMENOrdering Facility: [facility] Address: [address] [place] [address] Performed By: #### 5 7021-8 ####[facility] LABCLIA [id number] [place] [address] [place] Nucleated RBC/100 WBC (Bld) [Ratio] 0.0 /100 WBC Normal [facility] Comment on above: Order Comment: Speci men Type: BLOOD SPECIMENOrdering Facility: [facility] Address: [address] [place] [address] Performed By: #### 5 7021-8 ####[facility] LABIA [id number] [place] [id number] [place] Platelet mean volume (Bld) [Entitic vol] Normal [facility] Comment on above: Order Comment: Speci men Type: BLOOD SPECIMENOrdering Facility: [facility] Address: [address] [place] [address] Result Comment: Unab le to Report. Performed By: #### 5 7021-8 ####[facility] LABIA [id number] [place] [id number] [place] Platelets (Bld) [#/Vol] 213 10*3/uL Normal 150-400 [facility] Comment on above: Order Comment: Speci men Type: BLOOD SPECIMENOrdering Facility: [facility] Address: [address] [place] [address] Result Comment: No c lot detected. Performed By: #### 5 7021-8 ####[facility] LABIA [id number] [place] [address] [place] RBC (Bld) [#/Vol] 4.79 10*6/uL Normal 3.90-5.20 [facility] Comment on above: Order Comment: Speci men Type: BLOOD SPECIMENOrdering Facility: [facility] Address: [address] [place] [address] Performed By: #### 5 7021-8 ####[facility] LABCLIA [id number] [place] [id number] [place] WBC (Bld) [#/Vol] 6.89 10*3/uL Normal 3.70-11.00 [facility] Comment on above: Order Comment: Speci men Type: BLOOD SPECIMENOrdering Facility: [facility] Address: [facility] [place] [address] Performed By: #### 5 7021-8 ####[facility] LABCLIA [id number] [place] [id number] [facility] CNOVon 08-19-2023 CNOV Office Visit (NEURFH ) ----- SMOOTH MARTINEZ ([id number]) 1985 F Date Time Provider Department 08/19/23 9:00 AM GERMANIA [facility] During your visit today, we recorded the following information about you: Pulse Blood pressure Weight Height 96/minute 104/77 56.7 kg 1.689 m Germania Wilkinson MD 08/19/2023 4:26 PM Signed [facility] New Patient Evaluation PATIENT [...] or near accidents due to drowsy drivin [place] Sleepiness Scale 01/03/2020 08/11/2023 Score 0 0 [...] Had 2 sleep studies - one at [place] [facility] [place] OTHER RELEVANT LABS AND STUDIES: PAST MEDICAL [...] of Date: (more content not included)... Normal [facility] Ferritin SerPl-ncon 2022 Ferritin [Mass/Vol] 25.6 ng/mL Normal 14.7-205.1 [facility] Comment on above: Order Comment: Speci men Type: BLOOD SPECIMENOrdering Facility: [facility] Address: [address] [place] [address] Performed By: #### 2 276-4 ####[facility] LABCLIA [id number] [facility] [place] [address] [place] Iron and Iron binding capaci ty panelon 08-19-2023 Iron [Mass/Vol] 27 ug/dL Low 41-186 [facility] Comment on above: Order Comment: Speci men Type: BLOOD SPECIMEN [facility] Address: [address] [place] [address] Performed By: #### 5 0190-8 #### [facility] LAB CLIA [id number] [address] [place] [address] [facility] Iron binding capacity [Mass/Vol] 353 ug/dL Normal 232-386 [facility] Comment on above: Order Comment: Speci men Type: BLOOD SPECIMEN [facility] Address: [address] [place] [address] Performed By: #### 5 0190-8 #### [facility] LAB CLIA [id number] [address] [place] [address] [facility] Iron/TIBC [Molar ratio] 7.6 % Low 15.0-57.0 [facility] Comment on above: Order Comment: Speci men Type: BLOOD SPECIMEN [facility] Address: [address] [place] [address] Performed By: #### 5 0190-8 #### [facility] CLIA [id number] [address] [place] [address] [facility] CNOVon 07-23-2023 CNOV Office Visit ([place]EM[place] ) ----- SMOOTH MARTINEZ ([id number]) 1985 F Date Time Provider Department 07/23/23 11:15 AM TOR HERNANDEZ During your visit today, we recorded the following information about you: Pulse Blood pressure Weight 69/minute 94/62 56.7 kg Tor Hernandez, CYNTHIA.OVEREDGER 07/23/2023 5:00 PM [facility] FOLLOWUP/ESTABLISHED PATIENT VISIT PRINCIPAL NEUROLOGIC DIAGNOSIS: Multiple Sclerosis DISEASE SUMMARY Date of onset: 03/2007 Date of diagnosis of MS: 03/2007 Disease course at onset: Relapsing-Remitting Current disease course: Progressive without relapses Previous disease therapies: - Betaseron 0833-7802 - Copaxone 0705-6305 - Tysabri 2009-Summer 2019 (stopped due to [...] over 3 weeks following occipital relase - 8804-3845 recurrent OS ON - 5547-1461 several relapses including L numbness, weakness, constipation, urinary urgency - 2019 R weakness and numbness needing a wheelchair, hospitalized at [facility] (off Tysabri x3 months due to planning [...] effects. 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 or cane Leans on [...] in August Neuro-QoL Functions (higher=better functioning) Flowsheet [facility] Office Visit from 07/23/2023 in [facility] Office Visit from 01/17/2023 in [facility] Appointment from 01/15/2023 in [facility] Upper Extremity Domain T Score 28.29 31.35 30 Lower Extremity Domain T Score 36.94 36.94 39 Cognitive Function Domain T Score 30.7 28.53 38 Positive Affect Well Being T Score -- -- -- Ability To Participate In Social Roles T Score 39.9 39.9 43 Satisfaction With Social Roles T Score 39.66 39.66 45 Neuro-QoL Symptoms (higher=worse symptoms) Flowsheet [facility] Office Visit from 07/23/2023 in [facility] Office Visit from 01/17/2023 in [facility] Appointment from 01/15/2023 in [facility] Sleep Domain T Score 69.2 68.89 61 [...] Edema of lower extremity (04/17/2021), Multiple sclerosis ([facility]), Seizure ([facility]), and Thyroid disease. She has no past medical history of Asthma, Blood dyscrasia, Breast disorder, Chlamydia, Chronic kidney disease, Complication of anesthesia, Coronary artery disease, Diabetes ([facility]), Diabetes, gestational, Gonorrhea, Herpes simplex virus (HSV) infection, History of pre-eclampsia in prior , currently , HIV infection (HCC), (more content not included)... Normal [facility] ----- SMOOTH MARTINEZ ([id number]) 1985 F Date Time Provider Department 07/18/[address] [facility] During your visit today, we [...] [D50.0] Order(s):CBC + DIFF [SQCBCDIF] Order #: [id number] FUTURE IRON + TIBC [SQIRON] Order #: [id number] FUTURE FERRITIN BLD [SQFERR] Order #: [id number] FUTURE Prescriptions as of 07/21/2023 - ketoconazole [...] (FLONASE) 50 mcg/actuation nasal spray Use 1 [place] in each nostril once daily. - MAGNESIUM [...] Status:Closed by SIXTO REBOLLEDO on 07/21/23 Normal [facility] CBC W Auto Differential pane l (Bld)on 07-17-2023 Basophils (Bld) [#/Vol] 0.06 10*3/uL Normal <0.11 [facility] Comment on above: Order Comment: Speci men Type: BLOOD SPECIMENOrdering Facility: [facility] Address: [address] [place], [place] [address] Performed By: #### 5 7021-8 ####[facility] LABCLIA [id number] [address] [place] Basophils/100 WBC (Bld) 1.2 % Normal [facility] Comment on above: Order Comment: Speci men Type: BLOOD SPECIMENOrdering Facility: [facility] Address: [address] Performed By: #### 5 7021-8 ####[facility] LABCLIA [id number] [place] [address] [place] Differential cell count method Nom (Bld) Auto Normal [facility] Comment on above: Order Comment: Speci men Type: BLOOD SPECIMENOrdering Facility: [facility] Address: [address] [place], [place] [address] Performed By: #### 5 7021-8 ####[facility] LABIA [id number] [place] [address] [place] Eosinophils (Bld) [#/Vol] 0.09 10*3/uL Normal <0.46 [facility] Comment on above: Order Comment: Speci men Type: BLOOD SPECIMENOrdering Facility: [facility] Address: [address] [place], [place] [address] Performed By: #### 5 7021-8 ####[facility] LABIA [id number] [address] [place] Eosinophils/100 WBC (Bld) 1.8 % Normal [facility] Comment on above: Order Comment: Speci men Type: BLOOD SPECIMENOrdering Facility: [facility] Address: [address] [place], [place] [address] Performed By: #### 5 7021-8 ####[facility] LABIA [id number] [place] [address] [place] Erythrocyte distribution width (RBC) [Ratio] 25.8 % High 11.5-15.0 [facility] Comment on above: Order Comment: Speci men Type: BLOOD SPECIMENOrdering Facility: [facility] Address: [address] [place], [place] [address] Performed By: #### 5 7021-8 ####[facility] LABCLIA [id number] [place] [address] [place] Hematocrit (Bld) [Volume fraction] 34.2 % Low 36.0-46.0 [facility] Comment on above: Order Comment: Speci men Type: BLOOD SPECIMENOrdering Facility: [facility] Address: [address] [place] [address] Performed By: #### 5 7021-8 ####[facility] LABCLIA [id number] [place] [address] [place] Hemoglobin (Bld) [Mass/Vol] 9.6 g/dL Low 11.5-15.5 [facility] Comment on above: Order Comment: Speci men Type: BLOOD SPECIMENOrdering Facility: [facility] Address: [address] [place] [address] Performed By: #### 5 7021-8 ####[facility] LABCLIA [id number] [place] [address] [place] Immature granulocytes (Bld) [#/Vol] 10*3/uL Normal <0.10 [facility] Comment on above: Order Comment: Speci men Type: BLOOD SPECIMENOrdering Facility: [facility] Address: [address] [place] [address] Performed By: #### 5 7021-8 ####[facility] LABCLIA [id number] [place] [address] [place] Immature granulocytes/100 WBC (Bld) 0.4 % Normal [facility] Comment on above: Order Comment: Speci men Type: BLOOD SPECIMENOrdering Facility: [facility] Address: [address] [place], [place] [address] Performed By: #### 5 7021-8 ####[facility] LABCLIA [id number] [place] [address] [place] Lymphocytes (Bld) [#/Vol] 1.52 10*3/uL Normal 1.00-4.00 [facility] Comment on above: Order Comment: Speci men Type: BLOOD SPECIMENOrdering Facility: [facility] Address: [address] [place] [address] Performed By: #### 5 7021-8 ####[facility] LABIA [id number] [address] [facility] Lymphocytes/100 WBC (Bld) 31.2 % Normal [facility] Comment on above: Order Comment: Speci men Type: BLOOD SPECIMENOrdering Facility: [facility] Address: [address] [place] [address] Performed By: #### 5 7021-8 ####[facility] LABIA [id number] [place] [address] [place] MCH (RBC) [Entitic mass] 19.4 pg Low 26.0-34.0 [facility] Comment on above: Order Comment: Speci men Type: BLOOD SPECIMENOrdering Facility: [facility] Address: [address] Performed By: #### 5 7021-8 ####[facility] LABIA [id number] [place] [address] [place] MCHC (RBC) [Mass/Vol] 28.1 g/dL Low 30.5-36.0 [facility] Comment on above: Order Comment: Speci men Type: BLOOD SPECIMENOrdering Facility: [facility] Address: [address] Performed By: #### 5 7021-8 ####[facility] LABIA [id number] [place] [address] [place] MCV (RBC) [Entitic vol] 69.2 fL Low 80.0-100.0 [facility] Comment on above: Order Comment: Speci men Type: BLOOD SPECIMENOrdering Facility: [facility] Address: [address] [place], [place] [address] Performed By: #### 5 7021-8 ####[facility] LABCLIA [id number] [place] [address] [place] Monocytes (Bld) [#/Vol] 0.65 10*3/uL Normal <0.87 [facility] Comment on above: Order Comment: Speci men Type: BLOOD SPECIMENOrdering Facility: [facility] Address: [address] [place] [address] Performed By: #### 5 7021-8 ####[facility] LABCLIA [id number] [place] [address] [place] Monocytes/100 WBC (Bld) 13.3 % Normal [facility] Comment on above: Order Comment: Speci men Type: BLOOD SPECIMENOrdering Facility: [facility] Address: [address] [place], [place] [address] Performed By: #### 5 7021-8 ####[facility] LABCLIA [id number] [place] [address] [place] Neutrophils (Bld) [#/Vol] 2.53 10*3/uL Normal 1.45-7.50 [facility] Comment on above: Order Comment: Speci men Type: BLOOD SPECIMENOrdering Facility: [facility] Address: [address] [place] [address] Performed By: #### 5 7021-8 ####[facility] LABCLIA [id number] [place] [address] [place] Neutrophils/100 WBC (Bld) 52.1 % Normal [facility] Comment on above: Order Comment: Speci men Type: BLOOD SPECIMENOrdering Facility: [facility] Address: [address] [place], [place] [address] Performed By: #### 5 7021-8 ####[facility] LABCLIA [id number] [place] [address] [place] Nucleated RBC (Bld) [#/Vol] 10*3/uL Normal <0.01 [facility] Comment on above: Order Comment: Speci men Type: BLOOD SPECIMENOrdering Facility: [facility] Address: [address] [place] [address] Performed By: #### 5 7021-8 ####[facility] [id number] [place] [address] [place] Nucleated RBC/100 WBC (Bld) [Ratio] 0.0 /100 WBC Normal [facility] Comment on above: Order Comment: Speci men Type: BLOOD SPECIMENOrdering Facility: [facility] Address: [address] [place] [address] Performed By: #### 5 7021-8 ####[facility] [id number] [place] [address] [place] Platelet mean volume (Bld) [Entitic vol] Normal [facility] Comment on above: Order Comment: Speci men Type: BLOOD SPECIMENOrdering Facility: [facility] Address: [address] [place] [address] Result Comment: Unab le to Report. Performed By: #### 5 7021-8 ####[facility] [id number] [place] [address] [place] Platelets (Bld) [#/Vol] 226 10*3/uL Normal 150-400 [facility] Comment on above: Order Comment: Speci men Type: BLOOD SPECIMENOrdering Facility: [facility] Address: [address] [place] [address] Result Comment: Resu lts checked and verified.No clot detected. Performed By: #### 5 7021-8 ####[facility] LABGIFF[facility] [id number] [place] [address] [place] RBC (Bld) [#/Vol] 4.94 10*6/uL Normal 3.90-5.20 [facility] Comment on above: Order Comment: Speci men Type: BLOOD SPECIMENOrdering Facility: [facility] Address: [address] [place] [address] Performed By: #### 5 7021-8 ####[facility] [id number] [place] [address] [place] WBC (Bld) [#/Vol] 4.87 10*3/uL Normal 3.70-11.00 [facility] Comment on above: Order Comment: Speci men Type: BLOOD SPECIMENOrdering Facility: [facility] Address: [address] [place] [address] Performed By: #### 5 7021-8 ####[facility] LABIA [id number] [address] [place] CNOVon 07-17-2023 CNOV Office Visit ([facility] ) ----- SMOOTH MARTINEZ ([id number]) 1985 F Date Time Provider Department 07/17/23 11:[address] [facility] During your visit today, we [...] with her significant other. She went to [place] for a few months to live with her parents. She canceled or no showed her appointments with [facility] and with her therapist. Patient said she [...] No C (more content not included)... Normal [facility] Comprehensive metabolic 2000 panelon 07-17-2023 Albumin [Mass/Vol] 4.6 g/dL Normal 3.9-4.9 [facility] Comment on above: Order Comment: Speci men Type: BLOOD SPECIMENOrdering Facility: [facility] Address: [address] [place] [address] Performed By: #### 3 016-3, 2276-4, 14183-8, 71696-0 ####[facility] LABCLIA [id number] [facility] [place] [address] [place] ALP [Catalytic activity/Vol] 49 U/L Normal 34-123 [facility] Comment on above: Order Comment: Speci men Type: BLOOD SPECIMENOrdering Facility: [facility] Address: [place] [address] Performed By: #### 3 016-3, 6-4, 78231-3, 34811-5 ####[facility] LABCLIA [id number] [address] STATES [facility] ALT [Catalytic activity/Vol] 10 U/L Normal 7-38 [facility] Comment on above: Order Comment: Speci men Type: BLOOD SPECIMENOrdering Facility: [facility] Address: [address] [place] [address] Performed By: #### 3 016-3, 6-4, 35184-3, 32107-3 ####[facility] LABCLIA [id number] [address] [facility] Anion gap [Moles/Vol] 9 mmol/L Normal 9-18 [facility] Comment on above: Order Comment: Speci men Type: BLOOD SPECIMENOrdering Facility: [facility] Address: [address] [place] [address] Performed By: #### 3 016-3, 6-4, 63892-1, 65894-4 ####[facility] LABCLIA [id number] [address] AST [Catalytic activity/Vol] 17 U/L Normal 13-35 [facility] Comment on above: Order Comment: Speci men Type: BLOOD SPECIMENOrdering Facility: [facility] Address: [address] [place], [place] [address] Performed By: #### 3 016-3, 6-4, 46423-0, 53444-8 ####[facility] LABCLIA [id number] [address] [place] Bilirubin [Mass/Vol] 0.5 mg/dL Normal 0.2-1.3 [facility] Comment on above: Order Comment: Speci men Type: BLOOD SPECIMENOrdering Facility: [facility] Address: [address] [place] [address] Performed By: #### 3 016-3, 6-4, 17482-1, 86063-1 ####[facility] LABCLIA [id number] [place] [address] [place] Calcium [Mass/Vol] 9.4 mg/dL Normal 8.5-10.2 [facility] Comment on above: Order Comment: Speci men Type: BLOOD SPECIMENOrdering Facility: [facility] Address: [address] [place] [address] Performed By: #### 3 016-3, 6-4, 38783-9, 66149-0 ####[facility] LABCLIA [id number] [place] [address] [place] Chloride [Moles/Vol] 106 mmol/L High 97-105 [facility] Comment on above: Order Comment: Speci men Type: BLOOD SPECIMENOrdering Facility: [facility] Address: [address] [place] [address] Performed By: #### 3 016-3, 6-4, 22836-9, 95340-7 ####[facility] LABCLIA [id number] [place] [address] [place] CO2 [Moles/Vol] 24 mmol/L Normal 22-30 [facility] Comment on above: Order Comment: Speci men Type: BLOOD SPECIMENOrdering Facility: [facility] Address: [address] [place] [address] Performed By: #### 3 016-3, 6-4, 32539-9, 23005-6 ####[facility] LABCLIA [id number] [place] [address] [place] Creatinine [Mass/Vol] 0.94 mg/dL Normal 0.58-0.96 [facility] Comment on above: Order Comment: Rylee chauhan Type: BLOOD SPECIMENOrdering Facility: [facility] Address: [address] [place] [id number] Performed By: #### 3 016-3, 2276-4, 02660-1, 09729-8 ####[facility] LABCLIA [id number] [place] [address] [place] Creatinine and Glomerular filtration rate.predicted panel (S/P/Bld) 80 mL/min/1.73m??? Normal >=60 [facility] Comment on above: Order Comment: Rylee chauhan Type: BLOOD SPECIMENOrdering Facility: [facility] Address: [address] [place] [address] Result Comment: Priscila mated Glomerular Filtration Rate [...] actual GFR. Performed By: #### 3 016-3, 6-4, 54688-2, 26169-3 ####[facility] LABCLIA [id number] [place] [address] [place] Glucose [Mass/Vol] 80 mg/dL Normal 74-99 [facility] Comment on above: Order Comment: Rylee chauhan Type: BLOOD SPECIMENOrdering Facility: [facility] Address: [address] [id number] Result Comment: The [place] [employer] (ADA) provides guidance for cutoff [...] Standards of Medical Care in Diabetes 2016, [place] [employer]. Diabetes Care. 2016.39(Suppl 1). Performed By: #### 3 016-3, 2276-4, 89790-0, 12628-8 ####[facility] LABCLIA [id number] [place] [address] [place] Potassium [Moles/Vol] 4.4 mmol/L Normal 3.7-5.1 [facility] Comment on above: Order Comment: Speci gissel Type: BLOOD SPECIMENOrdering Facility: [facility] Address: [address] [place] [address] Performed By: #### 3 016-3, 6-4, 08622-0, 31155-7 ####[facility] LABIA [id number] [place] [address] [place] Protein [Mass/Vol] 7.7 g/dL Normal 6.3-8.0 [facility] Comment on above: Order Comment: Rylee chauhan Type: BLOOD SPECIMENOrdering Facility: [facility] Address: [address] [place] [address] Performed By: #### 3 016-3, 6-4, 57270-0, 50893-5 ####[facility] LABCLIA [id number] [place] [address] [place] Sodium [Moles/Vol] 139 mmol/L Normal 136-144 [facility] Comment on above: Order Comment: Speci men Type: BLOOD SPECIMENOrdering Facility: [facility] Address: [address] [place] [address] Performed By: #### 3 016-3, 6-4, 49677-4, 82856-8 ####[facility] LABCLIA [id number] [place] [address] [place] Urea nitrogen [Mass/Vol] 13 mg/dL Normal 7-21 [facility] Comment on above: Order Comment: Speci men Type: BLOOD SPECIMENOrdering Facility: [facility] Address: [address] [place] [address] Performed By: #### 3 016-3, 6-4, 42843-7, 86628-2 ####[facility] LABCLIA [id number] [place] [address] [place] Ferritin SerPl-mCncon 2022 Ferritin [Mass/Vol] 15.8 ng/mL Normal 14.7-205.1 [facility] Comment on above: Order Comment: Speci men Type: BLOOD SPECIMENOrdering Facility: [facility] Address: [address] [place] [address] Performed By: #### 3 016-3, 6-4, 68032-3, 47591-5 ####[facility] LABCLIA [id number] [place] [address] [place] OF ADIS Iron and Iron binding capaci ty panelon 07-17-2023 Iron [Mass/Vol] 321 ug/dL High 41-186 [facility] Comment on above: Order Comment: Speci men Type: BLOOD SPECIMENOrdering Facility: [facility] Address: [address] [place] [address] Performed By: #### 3 016-3, 6-4, 18642-9, 09919-0 ####[facility] LABCLIA [id number] [address] [place] Iron binding capacity [Mass/Vol] 400 ug/dL High 232-386 [facility] Comment on above: Order Comment: Speci men Type: BLOOD SPECIMENOrdering Facility: [facility] Address: [address] [place] [address] Performed By: #### 3 016-3, 6-4, 15275-6, 78992-3 ####[facility] LABCLIA [id number] [place] [address] [place] Iron/TIBC [Molar ratio] 80.3 % High 15.0-57.0 [facility] Comment on above: Order Comment: Speci men Type: BLOOD SPECIMENOrdering Facility: [facility] Address: [address] [place], [place] [id number] Performed By: #### 3 016-3, 2276-4, 75885-0, 18985-3 ####[facility] [id number] [place] [address] [place] TSH SerPl-aCncon 07-17-2023 TSH Qn 1.410 m[IU]/L Normal 0.270-4.200 [facility] Comment on above: Order Comment: Rylee chauhan Type: BLOOD SPECIMENOrdering Facility: [facility] Address: [address] [place] [address] Result Comment: If t he patient is , TSH reference range varies by gestational period: First Trimester (weeks 9-12): 0.180-2.990 mIU/L Second Trimester: 0.110-3.980 mIU/L Third Trimester: 0.480-4.710 mIU/L Rich Patrick et al. A Practical Approach for the Verifications and Determination of Site- and Trimester-Specific Reference Intervals for Thyroid Function tests in . Thyroid, 2019:29:3:412-420. Vivek E, et al. 2017 Guidelines of the [place] Thyroid [employer] for the Diagnosis and Management of Thyroid Disease during and the . Thyroid, 2017:27:3:315-389. Performed By: #### 3 016-3, 2276-4, 48784-5, 87276-6 ####[facility] LABIA [id number] [place] [address] [facility] OF ADIS Christiano 03-31-2023 PAIGE Telephone (NIQ) ----- SMOOTH MARTINEZ ([id number]) 1985 F Date Time Provider Department 03/31/23 JOSE RAUL SANTANA During your visit today, we recorded the following information about you: Alonzo Blanco Pss 03/31/2023 3:45 PM Signed Received call from patient to discuss getting her next infusion in [place]. Explained the potential concerns from the drug company regarding her [place] Medicaid possibly not covering the infusion. Patient is currently in [place] and has applied for [place]. She believes the facility in [place] will accept this since she had this coverage last time she went there. She said she was told application can take up to 45 days to process, but they can backdate her start date. Given this information, patient wishes to proceed with transferring infusions to requested hospital in [place]. Request sent to care team for orders. [...] (FLONASE) 50 mcg/actuation nasal spray Use 1 [place] in each nostril once daily. - MAGNESIUM ORAL Take 1 tablet by mouth twice daily. - Boebaiuz-Fv-Glf-Fe-FA ( VITAMIN) tab Take 1 tablet by [...] Status:Closed by ALONZO SULLIVAN on 03/31/23 Normal [facility] Trichmonas Vaginalis Screen (EIA)on 01-24-2023 Trichomonas Vaginalis Screen (EIA) Negative Normal [facility] Comment on above: Performed By: #### E TRIC #### [facility] [address] [place] [address] Wet Prep-Medical Purposes On berry 01-24-2023 Wet Prep Clue Cellls 1+ Abnormal [facility] Comment on above: Performed By: #### W ETPR #### [facility] [address] [place] [address] Wet Prep Trichomonas See EIA Normal [facility] Comment on above: Performed By: #### W ETPR #### [facility] [address] [place] [address] Wet Prep Yeast None Seen Normal [facility] Comment on above: Performed By: #### W ETPR #### [facility] [address] [place] [address] CBC W Auto Differential pane l (Bld)on 01-17-2023 Basophils (Bld) [#/Vol] 0.07 10*3/uL <0.11 k/uL [facility] Basophils/100 WBC (Bld) 1.0 % [facility] Differential cell count method Nom (Bld) Auto [facility] Eosinophils (Bld) [#/Vol] 0.07 10*3/uL <0.46 k/uL [facility] Eosinophils/100 WBC (Bld) 1.0 % [facility] Erythrocyte distribution width (RBC) [Ratio] 15.5 % High 11.5 - 15.0 % [facility] Hematocrit (Bld) [Volume fraction] 31.5 % Low 36.0 - 46.0 % [facility] Hemoglobin (Bld) [Mass/Vol] 9.4 g/dL Low 11.5 - 15.5 g/dL [facility] Immature granulocytes (Bld) [#/Vol] <0.10 k/uL [facility] Immature granulocytes/100 WBC (Bld) 0.3 % [facility] Lymphocytes (Bld) [#/Vol] 2.30 10*3/uL 1.00 - 4.00 k/uL [facility] Lymphocytes/100 WBC (Bld) 32.7 % [facility] MCH (RBC) [Entitic mass] 22.2 pg Low 26.0 - 34.0 pg [facility] MCHC (RBC) [Mass/Vol] 29.8 g/dL Low 30.5 - 36.0 g/dL [facility] MCV (RBC) [Entitic vol] 74.3 fL Low 80.0 - 100.0 fL [facility] Monocytes (Bld) [#/Vol] 0.51 10*3/uL <0.87 k/uL [facility] Monocytes/100 WBC (Bld) 7.2 % [facility] Neutrophils (Bld) [#/Vol] 4.07 10*3/uL 1.45 - 7.50 k/uL [facility] Neutrophils/100 WBC (Bld) 57.8 % [facility] Nucleated RBC (Bld) [#/Vol] <0.01 k/uL [facility] Nucleated RBC/100 WBC (Bld) [Ratio] 0.0 /100 WBC [facility] Platelet mean volume (Bld) [Entitic vol] 13.6 fL High 9.0 - 12.7 fL [facility] Platelets (Bld) [#/Vol] 304 10*3/uL 150 - 400 k/uL [facility] RBC (Bld) [#/Vol] 4.24 10*6/uL 3.90 - 5.2 0 m/uL [facility] WBC (Bld) [#/Vol] 7.04 10*3/uL 3.70 - 11. 00 k/uL [facility] Comprehensive metabolic 2000 panelon 01-17-2023 Albumin [Mass/Vol] 4.5 g/dL 3.9 - 4.9 g/dL [facility] ALP [Catalytic activity/Vol] 62 U/L 34 - 123 U/L [facility] ALT [Catalytic activity/Vol] 11 U/L 7 - 38 U/L [facility] Anion gap [Moles/Vol] 9 mmol/L 9 - 18 mmol/L [facility] AST [Catalytic activity/Vol] 18 U/L 13 - 35 U/L [facility] Bilirubin [Mass/Vol] 0.3 mg/dL 0.2 - 1 .3 mg/dL [facility] Calcium [Mass/Vol] 9.8 mg/dL 8.5 - 10. 2 mg/dL [facility] Chloride [Moles/Vol] 104 mmol/L 97 - 10 5 mmol/L [facility] CO2 [Moles/Vol] 26 mmol/L 22 - 30 mmol/L [facility] Creatinine [Mass/Vol] 0.79 mg/dL 0.58 - 0.96 mg/dL [facility] Estimated Glomerular Filtration Rate 99 mL/min/1.73m >=60 mL/min/1.73m [facility] Glucose [Mass/Vol] 69 mg/dL Low 74 - 99 mg/dL [facility] Potassium [Moles/Vol] 4.2 mmol/L 3.7 - 5.1 mmol/L [facility] Protein [Mass/Vol] 7.9 g/dL 6.3 - 8.0 g/dL [facility] Sodium [Moles/Vol] 139 mmol/L 136 - 144 mmol/L [facility] Urea nitrogen [Mass/Vol] 11 mg/dL 7 - 21 mg/dL [facility] C.trachomatis N.gonorrhoeae DNAon 12-10-2022 C. trachomatis DNA DEIRDRE+probe Ql (Unsp spec) Negative Normal Negative [facility] N. gonorrhoeae DNA DEIRDRE+probe Ql (Unsp spec) Negative Normal Negative [facility] Trichmonas Vaginalis Screen (EIA)on 12-06-2022 Trichomonas Vaginalis Screen (EIA) Negative Normal [facility] Comment on above: Performed By: #### E TRIC #### [facility] [address] [place] [address] Wet Prep-Medical Purposes On berry 12-06-2022 Wet Prep Clue Cellls 1+ Abnormal [facility] Comment on above: Performed By: #### W ETPR #### [facility] [address] [place] [address] Wet Prep Trichomonas See EIA Normal [facility] Comment on above: Performed By: #### W ETPR #### [facility] [address] [place] [address] Wet Prep Yeast None Seen Normal [facility] Comment on above: Performed By: #### W ETPR #### [facility] [address] [place] [address] Albumin [Mass/volume] in Ser um or PlasmaOrdered By: Vishal Agarwal on 10-27-2022 Albumin [Mass/Vol] 4.1 g/dL 3.2-5.5 [facility] Basophils Auto (Bld) [#/Vol] Ordered By: Vishal Agarwal on 10-27-2022 Basophils (Bld) [#/Vol] 0.0 10*3/uL 0.0-0.2 [facility] Basophils/100 WBC Auto (Bld) Ordered By: Vishal Agarwal on 10-27-2022 Basophils/100 WBC (Bld) 0.4 % . [facility] COVID CepheidOrdered By: Brook Agarwal on 10-27-2022 SARS-CoV-2 (COVID-19) Ab IA Ql Positive Negative [facility] Comment on above: This is a duplicate [employer] Xpert Xpress CoV-2/Flu/RSV Plus RNA by RT-PCR result to be used for statistical tracking purpose only. SARS-CoV-2 (COVID-19) RNA DEIRDRE+probe Ql (Unsp spec) [facility] Creatinine and Glomerular fi ltration rate.predicted panel (S/P/Bld)Ordered By: Vishal Agarwal on 10-27-2022 Creatinine [Mass/Vol] 0.96 mg/dL 0.44-1.03 [facility] Eosinophils Auto (Bld) [#/Vo l]Ordered By: Vishal Agarwal on 10-27-2022 Eosinophils (Bld) [#/Vol] 0.0 10*3/uL 0.0-0.45 [facility] Eosinophils/100 WBC Auto (Bl d)Ordered By: Vishal Agarwal on 10-27-2022 Eosinophils/100 WBC (Bld) 0.0 % . [facility] Erythrocyte distribution wid th Auto (RBC) [Ratio]Ordered By: Vishal Agarwal on 10-27-2022 Erythrocyte distribution width (RBC) [Ratio] 17.4 % 11.9-15.3 [facility] Estimated glomerular filtrat ion rate (GFR) non- AmericanOrdered By: Vishal Agarwal on 10-27-2022 GFR/1.73 sq M.predicted among non-blacks MDRD (S/P/Bld) [Vol rate/Area] > 60 mL/Min [facility] Globulin Calc (S) [Mass/Vol] Ordered By: Vishal Agarwal on 10-27-2022 Globulin (S) [Mass/Vol] 3.5 g/dL [facility] Hematocrit Auto (Bld) [Volum e fraction]Ordered By: Vishal Agarwal on 10-27-2022 Hematocrit (Bld) [Volume fraction] 38.7 % 34.0-46.4 [facility] Hemoglobin [Mass/volume] in BloodOrdered By: Vishal Agarwal on 10-27-2022 Hemoglobin (Bld) [Mass/Vol] 12.1 g/dL 11.8-15.4 [facility] Leukocytes [#/volume] correc che for nucleated erythrocytes in Blood by Automated counOrdered By: Vishal Agarwal on 10-27-2022 WBC corrected for nucl RBC Auto (Bld) [#/Vol] 4.5 10*3/uL 3.8-11.6 [facility] Lymphocytes Auto (Bld) [#/Vo l]Ordered By: Vishal Agarwal on 10-27-2022 Lymphocytes (Bld) [#/Vol] 0.5 10*3/uL 1.00-4.8 [facility] Lymphocytes/100 WBC Auto (Bl d)Ordered By: Vishal Agarwal on 10-27-2022 Lymphocytes/100 WBC (Bld) 10.8 % . [facility] MCH Auto (RBC) [Entitic mass ]Ordered By: Vishal Agarwal on 10-27-2022 MCH (RBC) [Entitic mass] 23.7 pg 24.7-34.3 [facility] MCHC Auto (RBC) [Mass/Vol]Or dered By: Vishal Agarwal on 10-27-2022 MCHC (RBC) [Mass/Vol] 31.2 g/dL 32.0-35.0 [facility] MCV Auto (RBC) [Entitic vol] Ordered By: Vishal Agarwal on 10-27-2022 MCV (RBC) [Entitic vol] 76.0 fL 80-100 [facility] Monocyte distribution width [Entitic volume] in Blood by AutomatedOrdered By: Vishal Agarwal on 10-27-2022 Monocyte distribution width Auto (Bld) [Entitic vol] 24.86 % 0.00-20.00 [facility] Comment on above: For adults in ED, MD W > 20.0 may be associated with a higher risk of sepsis during the first 12 hrs of hospital admission Monocytes Auto (Bld) [#/Vol] Ordered By: Vishal Agarwal on 10-27-2022 Monocytes (Bld) [#/Vol] 0.8 10*3/uL 0.0-0.8 [facility] Monocytes/100 WBC Auto (Bld) Ordered By: Vishal Agarwal on 10-27-2022 Monocytes/100 WBC (Bld) 16.8 % . [facility] Neutrophils Auto (Bld) [#/Vo l]Ordered By: Vishal Agarwal on 10-27-2022 Neutrophils (Bld) [#/Vol] 3.2 10*3/uL 1.8-7.7 [facility] Neutrophils/100 WBC Auto (Bl d)Ordered By: Vishal Agarwal on 10-27-2022 Neutrophils/100 WBC (Bld) 72.0 % . [facility] No Panel InformationOrdered By: Vishal Agarwal on 10-27-2022 Estimated GFR () > 60 mL/Min [facility] Comment on above: GFR estimated refere nce range: According to KDOQI guidelines, <60 ml/min/1.73m2 is sufficient to diagnose a patient with chronic kidney disease. Pharmacy Creatinine Clearance (Chem 75.11 [facility] Nucleated erythrocytes [Pres ence] in Blood by Automated countOrdered By: Vishal Agarwal on 10-27-2022 Nucleated RBC Auto Ql (Bld) 0.1 /100{WBC} 0-0.5 [facility] Platelet mean volume Auto (B ld) [Entitic vol]Ordered By: Vishal Agarwal on 10-27-2022 Platelet mean volume (Bld) [Entitic vol] 11.0 fL 6.3-10.7 [facility] Platelets Auto (Bld) [#/Vol] Ordered By: Vishal Agarwal on 10-27-2022 Platelets (Bld) [#/Vol] 148 10*3/uL 150-450 [facility] Protein [Mass/volume] in Ser um or PlasmaOrdered By: Vishal Agarwal on 10-27-2022 Protein [Mass/Vol] 7.6 g/dL 6.1-7.9 [facility] RBC Auto (Bld) [#/Vol]Ordere d By: Vishal Agarwal on 10-27-2022 RBC (Bld) [#/Vol] 5.10 10*6/uL 3.60-5.00 [facility] Serum or plasma alanine gannon otransferase measurement without P-5'-P (enzymatic activiOrdered By: Vishal Agarwal on 10-27-2022 ALT No additional P-5'-P [Catalytic activity/Vol] 18 U/L 10-60 [facility] Serum or plasma albumin/glob ulin mass ratioOrdered By: Vishal Agarwal on 10-27-2022 Albumin/Globulin [Mass ratio] 1.2 {ratio} [facility] Serum or plasma alkaline bull sphatase measurement (enzymatic activity/volume)Ordered By: Vishal Agarwal on 10-27-2022 ALP [Catalytic activity/Vol] 43 U/L 32-92 [facility] Serum or plasma anion gap de terminationOrdered By: Vishal Agarwal on 10-27-2022 Anion gap [Moles/Vol] 13.5 mmol/L 6.0-15.0 [facility] Serum or plasma aspartate am inotransferase measurement (enzymatic activity/volume)Ordered By: Vishal Agarwal on 10-27-2022 AST [Catalytic activity/Vol] 24 U/L 10-42 [facility] Serum or plasma calcium scotty urement (mass/volume)Ordered By: Vishal Agarwal on 10-27-2022 Calcium [Mass/Vol] 9.2 mg/dL 8.2-10.2 [facility] Serum or plasma chloride suzie surement (moles/volume)Ordered By: Vishal Agarwal on 10-27-2022 Chloride [Moles/Vol] 101 mmol/L 95-114 [facility] Serum or plasma glucose scotty urement (mass/volume)Ordered By: Vishal Agarwal on 10-27-2022 Glucose [Mass/Vol] 102 mg/dL 70-100 [facility] Comment on above: ADA recommended refe rence rangeRandom Glucose Reference Range is dependent on time and content of last meal. Glucose of more than 200 mg/dL in a nonstressed, ambulatory subject supports the diagnosis of Diabetes Mellitus. Serum or plasma potassium me asurement (moles/volume)Ordered By: Vishal Agarwal on 10-27-2022 Potassium [Moles/Vol] 3.7 mmol/L 3.5-5.1 [facility] Serum or plasma sodium measu rement (moles/volume)Ordered By: Vishal Agarwal on 10-27-2022 Sodium [Moles/Vol] 134 mmol/L 136-146 [facility] Serum or plasma total biliru bin measurement (mass/volume)Ordered By: Vishal Agarwal on 10-27-2022 Bilirubin [Mass/Vol] 0.8 mg/dL 0.3-1.2 [facility] Serum or plasma total carbon dioxide measurement (moles/volume)Ordered By: Vishal Agarwal on 10-27-2022 CO2 [Moles/Vol] 23.2 mmol/L 22.0-30.0 [facility] Serum or plasma urea nitroge n measurement (mass/volume)Ordered By: Vishal Agarwal on 10-27-2022 Urea nitrogen [Mass/Vol] 10 mg/dL 9- [facility] WBC Auto (Bld) [#/Vol]Ordere d By: Vishal Agarwal on 12-18-2022 WBC (Bld) [#/Vol] 4.5 10*3/uL 3.8-11.6 [facility] HBV surface Ab IA Ql (S)on 11-27-2021 HBV surface Ag Ql (S) Negative Negative [facility] HEP B CORE AB TOTALon 2021 HBV core Ab Ql (S) Negative Negative [facility] HEP B SURF AB QUALon 022 HBV surface Ab Ql (S) Positive Abnormal Negative [facility] HEP C AB IA W/CONF SCRNon HCV Ab Ql (S) Negative Negative [facility] CBC W Auto Differential pane l (Bld)on 04-25-2022 Abs Immature Gran <0.03 <0.10 k/uL [facility] Basophils (Bld) [#/Vol] 0.03 10*3/uL <0.11 k/uL [facility] Basophils/100 WBC (Bld) 0.6 % [facility] Differential cell count method Nom (Bld) Auto [facility] Eosinophils (Bld) [#/Vol] 0.10 10*3/uL <0.46 k/uL [facility] Eosinophils/100 WBC (Bld) 2.0 % [facility] Erythrocyte distribution width (RBC) [Ratio] 13.9 % 11.5 - 15.0 % [facility] Hematocrit (Bld) [Volume fraction] 38.5 % 36.0 - 46.0 % [facility] Hemoglobin (Bld) [Mass/Vol] 12.0 g/dL 11.5 - 15.5 g/dL [facility] Immature Gran % 0.2 % [facility] Lymphocytes (Bld) [#/Vol] 1.54 10*3/uL 1.00 - 4.00 k/uL [facility] Lymphocytes/100 WBC (Bld) 30.2 % [facility] MCH (RBC) [Entitic mass] 25.4 pg Low 26.0 - 34.0 pg [facility] MCHC (RBC) [Mass/Vol] 31.2 g/dL 30.5 - 36.0 g/dL [facility] MCV (RBC) [Entitic vol] 81.4 fL 80.0 - 100.0 fL [facility] Monocytes (Bld) [#/Vol] 0.66 10*3/uL <0.87 k/uL [facility] Monocytes/100 WBC (Bld) 12.9 % [facility] Neutrophils (Bld) [#/Vol] 2.76 10*3/uL 1.45 - 7.50 k/uL [facility] Neutrophils/100 WBC (Bld) 54.1 % [facility] Nucleated RBC (Bld) [#/Vol] 10*3/uL <0.01 k/uL [facility] Nucleated RBC/100 WBC (Bld) [Ratio] 0.0 /100 WBC [facility] Platelet mean volume (Bld) [Entitic vol] 13.5 fL High 9.0 - 12.7 fL [facility] Platelets (Bld) [#/Vol] 168 10*3/uL 150 - 400 k/uL [facility] RBC (Bld) [#/Vol] 4.73 10*6/uL 3.90 - 5.2 0 m/uL [facility] WBC (Bld) [#/Vol] 5.10 10*3/uL 3.70 - 11. 00 k/uL [facility] URINALYSIS, REFLEX MICROSCOP ICon 04-25-2022 Bilirubin Ql (U) Negative Negative [facility] Clarity (Unsp spec) Clear Clear [facility] Color (U) Light Yellow Yellow [facility] Glucose Test strip (U) [Mass/Vol] Negative Negative [facility] Hemoglobin Ql (U) Negative Negative [facility] Ketones Ql (U) Negative Negative [facility] Leukocyte esterase Test strip Ql (U) Negative Negative [facility] Nitrite Ql (U) Negative Negative [facility] pH (U) 6.0 [pH] 5.0 - 8.0 [facility] Protein (U) [Mass/Vol] Negative Negative [facility] Specific gravity (U) [Rel density] 1.021 1.005 - 1.030 [facility] Urobilinogen Ql (U) Negative Negative [facility] CNPLilli 11-13-2021 PAIGE Telephone (NEADFV) ----- SMOOTH MARTINEZ ([id number]) 1985 F Date Time Provider Department 11/13/21 [...] (FLONASE) 50 mcg/actuation nasal spray Use 1 [place] in each nostril once daily. - MAGNESIUM ORAL Take 1 tablet by mouth twice daily. - Pwvtmcnt-Qm-Cig-Fe-FA ( VITAMIN) tab Take 1 tablet by [...] Encounter Status:Closed by AUDIE GABRIEL on 11/13/21 [facility] Christiano 07-24-2021 CNPN Telephone (NEADFV) ----- SMOOTH MARTINEZ F ([id number]) 1985 F Date Time Provider Department 07/24/21 MICHELLE GARCIA NERUSSELLFV During your visit today, we recorded the following information about you: Hanna Carroll 07/24/2021 12:34 PM Signed Patient called stating she is scheduled for an Ocrevus infusion on August 15, but will be out of state in [place]. She would like to have the infusion done there at [facility]. Also,she has new insurance as of May and will need to get the Ocrevus approved through her new insurance ([employer]- ). For questions call patient at [phone] [facility] 07/24/2021 1:21 PM Signed Patient called back with a phone number of [phone] for [facility]. The phone # her [employer] is [phone]. Audie Gabriel RN 07/24/2021 1:51 PM Signed [...] (FLONASE) 50 mcg/actuation nasal spray Use 1 [place] in each nostril once daily. - MAGNESIUM ORAL Take 1 tablet by mouth twice daily. - Xebxdaab-Qm-Eao-Fe-FA ( VITAMIN) tab Take 1 tablet by [...] Status:Closed by AUDIE GABRIEL on 07/24/21 Normal [facility] Telephone Encounteron 2020 [employer] Authentication Interface Message Text Patient was identified by name and date of . Patient given message, patient denied additional questions. ----- Message from Sofy Pandya MD sent at 03/22/2021 12:34 PM EDT ----- Please notify neg HPV with ascus pap, OK to f/u in [address] Sofy Pandya Normal [facility] Telephone Encounteron 2020 [employer] Authentication Interface Message Text ----- Message from Sofy Pandya MD sent at 03/08/2021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 (Primary Dx); Vitamin D deficiency Start: 04-24-2022 Telephone encounter Marshall hernandez MD, PhD Work Phone: [facility] Comment on above: Patient Update Start: 04-02-2022 End: 04-02-2022 Emergency department patient visit DO Vishal Agarwal Work Phone: [facility] Start: 03-26-2022 End: 03-26-2022 ambulatory Neur Frvw Infusion Work Phone: Neurology Comment on above: Multiple sclerosis ( HCC) (Primary Dx) Start: 03-04-2022 Telephone encounter Michelle anne MD Work Phone: Neurology Comment on above: Ocrevus Prior Auth Start: 03-07-2021 End: 03-07-2021 ambulatory UNKNOWN PROVIDER Facility:[facility] Start: 05-05-2019 End: 05-05-2019 Discharged Recurring STAFF NON [facility]-Infusion Therapy - O/P Procedures Date Procedure Procedure Detail Performing Clinician Start: 03-17-[address] Work Phone: Start: 03-17-2024 Ultrasonography of b ilateral breasts MD Janice Lane Work Phone: Start: 01-19-2024 Mri spinal canal tho racic w/o & w/contr matrl Tor Hernandez HYDRAULICS ENGINEER.OVEREDGER Work Phone: Start: 12-23-2023 Urine test visual color cmprsn meths Gael Howard DO Work Phone: Start: 12-23-2023 STATUS COVID-19/FLU Ant lucien Howard DO Work Phone: Start: 09-25-2023 Blood count complete auto&auto difrntl wbc Tor Hernandez HYDRAULICS ENGINEER.OVEREDGER Work Phone: Start: 09-25-2023 HEP REMOTE PANEL [...] ia hepatitis b surface antigen Jose Raul Sanatna MD Work Phone: Start: 04-02-2022 Plain X-ray [...] visit Start: 01-12-2020 Echocardiography Start: 01-05-2020 Echocardiography Karriketan Jones SARS-CoV-2, Influenz a & RSV (PCR) MD Janice Lane Work Phone: Plan of Treatment Date Care Activity Detail Author Start: 01-16-2032 Urine microalbumin profile [facility] Start: 03-07-2026 PAP TESTING PAP TESTING [facility] Start: 03-07-2026 Screening for malign ant neoplasm of cervix Pap Testing [facility] Start: 07-19-2024 End: 07-19-2024 Patient encounter procedure 07/19/2024 12:00 PM EDT Office Visit [facility] [address] [place] [address] MD [address] [place] [address] 1 year physical [facility] Comment on above: 1 year physical Start: 07-01-2024 End: 07-01-2024 Patient encounter procedure 07/01/2024 11:00 AM EDT Office Visit [facility] [address] [facility] [address] Tor Hernandez APRN.OVEREDGER [address] [place] [address] Return in about 6 months (around 06/24/2024). [facility] Comment on above: Return in about 6 mo nths (around 06/24/2024). Start: 06-23-2024 End: 06-23-2024 Patient encounter procedure 06/23/2024 8:00 AM EDT Office Visit Neurology [address] [place] [address] ACTIGRAPHY Neurology Comment on above: ACTIGRAPHY Start: 06-08-2024 End: 06-08-2024 Patient encounter procedure 06/08/2024 1:00 PM EDT Office Visit Neurology [address] [place] [address] Germania Wilkinson MD [address] [place] [address] INSOMNIA Neurology Comment on above: INSOMNIA Start: 05-19-2024 End: 05-19-2024 Patient encounter procedure 05/19/2024 10:00 AM EDT Office Visit [facility] [address] [place] [address] Clarke Hu DO [address] [place] [address] [facility] Start: 04-21-2024 End: 04-21-2024 Patient encounter procedure 04/21/2024 8:00 AM EDT Office Visit Neurology [address] [place] [address] ACTIGRAPHY Neurology Comment on above: ACTIGRAPHY Start: 03-30-2024 End: 03-30-2024 ambulatory 03/30/2024 1:[address] [facility] [address] [address] Tor Hernandez, HYDRAULICS ENGINEER.OVEREDGER [address] [place] [address] What medicine to take during or off of [facility] Comment on above: What medicine to raúl e during or off of Start: 03-26-2024 End: 03-26-2024 ambulatory 03/26/2024 9:40 AM EDT [facility] Hematology/Oncology [address] [place] [address] Kylah, Chair [address] [place] [address] [place] [address] [facility] H[facility]olog y Comment on above: [facility] Start: 03-22-2024 End: 03-22-2024 ambulatory 03/22/2024 2:30 PM EDT [facility] Neurology [address] [place] [id number] Ayan Marie, HYDRAULICS ENGINEER.OVEREDGER [address] [place] [address] F/U Neurology Comment on above: F/U Start: 03-08-2024 End: 03-08-2024 Patient encounter procedure 03/08/2024 8:00 AM EDT Office Visit Neurology [address] [id number] ACTIGRAPHY Neurology Comment on above: ACTIGRAPHY Start: 03-04-2024 End: 06-03-2024 JOSSELIN BY IFA WITH REFLEX [facility] Comment on above: Expected: 03/04/2024 , Expires: 06/03/2024 Start: 03-04-2024 End: 06-03-2024 C reactive protein [Mass/volume] in Serum or Plasma [facility] Comment on above: Expected: 03/04/2024 , Expires: 06/03/2024 Start: 03-04-2024 End: 06-03-2024 Ferritin [Mass/volume] in Serum or Plasma [facility] Comment on above: Expected: 03/04/2024 , Expires: 06/03/2024 Start: 03-04-2024 End: 06-03-2024 Iron and Iron binding capacity panel - Serum or Plasma [facility] Comment on above: Expected: 03/04/2024 , Expires: 06/03/2024 Start: 03-04-2024 End: 06-03-2024 Rheumatoid factor [Units/volume] in Serum or Plasma [facility] Comment on above: Expected: 03/04/2024 , Expires: 06/03/2024 Start: 03-04-2024 End: 06-03-2024 Urate [Mass/volume] in Serum or Plasma [facility] Comment on above: Expected: 03/04/2024 , Expires: 06/03/2024 Start: 02-24-2024 [facility] Start: 12-11-2023 End: 08-21-2024 Mri brain brain stem w/o w/contrast material MRI BRAIN WO/W IVCON Radiology Routine Multiple sclerosis (HCC) Expected: 12/11/2023 (Approximate), Expires: 08/21/2024 [facility] Work Phone: Comment on above: Expected: 12/11/2023 (Approximate), Expires: 08/21/2024 Start: 11-10-2023 Behavioral Health Screening Behavioral Health Screening [facility] Start: 11-10-2023 Depression Assessment Depression Ass essment [facility] Start: 10-25-2023 End: 01-24-2024 CBC W Auto Differential panel - Blood CBC + DIFF Lab Routine Other drug-induced neutropenia (HCC) Expected: 10/25/2023 (Approximate), Expires: 01/24/2024 [facility] Work Phone: Comment on above: Expected: 10/25/2023 (Approximate), Expires: 01/24/2024 Start: 09-25-2023 End: 12-25-2023 CD19 ABSOLUTE COUNT [facility] Work Phone: Comment on above: Expected: 09/25/2023 , Expires: 12/25/2023 Start: 09-23-2023 End: 12-23-2023 Choriogonadotropin.beta subunit [Units/volume] in Serum or Plasma HCG QUANTITATIVE Lab Routine Multiple sclerosis ([facility]) Expected: 09/23/2023, Expires: 12/23/2023 [facility] Work Phone: Comment on above: Expected: 09/23/2023 , Expires: 12/23/2023 Start: 09-23-2023 End: 12-23-2023 IgG [Mass/volume] in Serum or Plasma IGG Lab Routine Multiple sclerosis ([facility]) Expected: 09/23/2023, Expires: 12/23/2023 [facility] Work Phone: Comment on above: Expected: 09/23/2023 , Expires: 12/23/2023 Start: 09-23-2023 End: 12-23-2023 IgM [Mass/volume] in Serum or Plasma IGM Lab Routine Multiple sclerosis ([facility]) Expected: 09/23/2023, Expires: 12/23/2023 [facility] Work Phone: Comment on above: Expected: 09/23/2023 , Expires: 12/23/2023 Start: 07-11-2023 Covid-19 Vaccine () Covid-19 Vaccine () [facility] Start: 07-11-2023 Influenza vaccination [facility] Start: 02-12-2023 End: 04-14-2023 CBC W Auto Differential panel - Blood [facility] Work Phone: Comment on above: Expected: 02/12/2023 , Expires: 04/14/2023 Start: 02-12-2023 End: 04-14-2023 Ferritin [Mass/volume] in Serum or Plasma [facility] Work Phone: Comment on above: Expected: 02/12/2023 , Expires: 04/14/2023 Start: 02-12-2023 End: 02-26-2023 Influenza virus A and B RNA and SARS-CoV-2 (COVID-19) N gene panel - Respiratory specimen by DEIRDRE with probe detection [facility] Work Phone: Comment on above: Expected: 02/12/2023 , Expires: 02/26/2023 Start: 02-12-2023 End: 04-14-2023 Iron and Iron binding capacity panel - Serum or Plasma [facility] Work Phone: Comment on above: Expected: 02/12/2023 , Expires: 04/14/2023 Start: 02-12-2023 End: 02-13-2024 PELVIC US WHI PELVIC US WHI Anc Imaging Routine Vaginal bleeding Expected: 02/12/2023, Expires: 02/13/2024 [facility] Work Phone: Comment on above: Expected: 02/12/2023 , Expires: 02/13/2024 Start: 02-05-2023 End: 12-07-2023 Mri brain brain stem w/o w/contrast material MRI BRAIN WO/W IVCON Radiology Routine Multiple sclerosis (HCC) Expected: 02/05/2023 (Approximate), Expires: 12/07/2023 [facility] Work Phone: Comment on above: Expected: 02/05/2023 (Approximate), Expires: 12/07/2023 Start: 02-05-2023 End: 12-07-2023 Mri spinal canal cervical w/o & w/contr matrl MRI CERVICAL SPINE WO/W IVCON Radiology Routine Multiple sclerosis (HCC) Expected: 02/05/2023 (Approximate), Expires: 12/07/2023 [facility] Work Phone: Comment on above: Expected: 02/05/2023 (Approximate), Expires: 12/07/2023 Start: 01-17-2023 End: 03-19-2023 25-hydroxyvitamin D3 [Mass/volume] in Serum or Plasma [facility] Work Phone: Comment on above: Expected: 01/17/2023 , Expires: 03/19/2023 Start: 01-17-2023 End: 03-19-2023 Cobalamin (Vitamin B12) [Mass/volume] in Serum or Plasma [facility] Work Phone: Comment on above: Expected: 01/17/2023 , Expires: 03/19/2023 Start: 01-17-2023 End: 03-19-2023 IgG [Mass/volume] in Serum or Plasma [facility] Work Phone: Comment on above: Expected: 01/17/2023 , Expires: 03/19/2023 Start: 01-17-2023 End: 03-19-2023 IgM [Mass/volume] in Serum or Plasma [facility] Work Phone: Comment on above: Expected: 01/17/2023 , Expires: 03/19/2023 Start: 01-17-2023 End: 03-19-2023 Thyrotropin [Units/volume] in Serum or Plasma [facility] Work Phone: Comment on above: Expected: 01/17/2023 , Expires: 03/19/2023 Start: 11-10-2022 DEPRESSION ASSESSMENT DEPRESSION ASS ESSMENT [facility] Start: 10-27-2022 Plain chest X-ray XR chest 1V portab [facility] Start: 10-27-2022 XR Chest Single view [facility] Start: 07-11-2022 Influenza vaccination [facility] Start: 04-25-2022 End: 06-25-2022 Bacteria identified in Urine by Culture [facility] Work Phone: Comment on above: Expected: 04/25/2022 , Expires: 06/25/2022 Start: 04-24-2022 End: 06-24-2022 25-hydroxyvitamin D3 [Mass/volume] in Serum or Plasma VITAMIN D 25 HYDROXY Lab Routine Vitamin D deficiency Expected: 04/24/2022, Expires: 06/24/2022 [facility] Work Phone: Comment on above: Expected: 04/24/2022 , Expires: 06/24/2022 Start: 04-24-2022 End: 06-24-2022 Comprehensive metabolic 2000 panel - Serum or Plasma COMP METABOLIC PANEL Lab Routine Multiple sclerosis (HCC) Expected: 04/24/2022, Expires: 06/24/2022 [facility] Work Phone: Comment on above: Expected: 04/24/2022 , Expires: 06/24/2022 Start: 04-24-2022 End: 06-24-2022 IgG [Mass/volume] in Serum or Plasma IGG Lab Routine Multiple sclerosis ([facility]) Expected: 04/24/2022, Expires: 06/24/2022 [facility] Work Phone: Comment on above: Expected: 04/24/2022 , Expires: 06/24/2022 Start: 04-24-2022 End: 06-24-2022 IgM [Mass/volume] in Serum or Plasma IGM Lab Routine Multiple sclerosis ([facility]) Expected: 04/24/2022, Expires: 06/24/2022 [facility] Work Phone: Comment on above: Expected: 04/24/2022 , Expires: 06/24/2022 Start: 04-24-2022 End: 06-24-2022 VARICELLA ZOSTER IGG VARICELLA ZOSTER IGG Lab Routine Multiple sclerosis ([facility]) Expected: 04/24/2022, Expires: 06/24/2022 [facility] Work Phone: Comment on above: Expected: 04/24/2022 , Expires: 06/24/2022 Start: 02-08-2022 Adult depression screening assessment DEPRESSION SCREENING [facility] Start: 11-10-2021 DEPRESSION ASSESSMENT DEPRESSION ASS ESSMENT [facility] Start: 01-05-2020 Echocardiography Echocardiogram MG-C [facility] [address] Work Phone: Start: 2015 HPV TESTING HPV TESTING [facility] Start: 2015 Screening for malign ant neoplasm of cervix HPV Testing [facility] Start: 1990 COVID-19 VACCINE (#1) COVID-19 VACCI NE (#1) [facility] Start: 1990 COVID-19 VACCINE (1) COVID-19 VACCIN E (1) [facility] Start: 02-01-1986 COVID-19 VACCINE (#1) COVID-19 VACCI NE (#1) [facility] Start: 1985 HEPATITIS B (1 of 3 - 3-dose series) HEPATITIS B (1 of 3 - 3-dose series) [facility] 25-hydroxyvitamin D3 [Mass/volume] in Serum or Plasma VITAMIN D 25 HYDROXY Lab Routine Vitamin D deficiency 04/25/2022 11:12 AM EDT [facility] Work Phone: Bacteria identified in Genital specimen by Aerobe culture [facility] Work Phone: Comprehensive metabo lic 2000 panel - Serum or Plasma COMP METABOLIC PANEL Lab Routine Multiple sclerosis ([facility]) 04/25/2022 11:12 AM EDT [facility] Work Phone: End: 04-25-2023 EPIL EEG ROUTINE EPIL EEG ROUTINE NEUROLOGY Routine Multiple sclerosis ([facility]) 1 Occurrences starting 04/25/2022 until 04/25/2023 [facility] Work Phone: Comment on above: 1 Occurrences starti ng 04/25/2022 until 04/25/2023 Glucose measurement estimated from glycated hemoglobin [facility] IgG [Mass/volume] in Serum or Plasma IGG Lab Routine Multiple sclerosis ([facility]) 04/25/2022 11:12 AM EDT [facility] Work Phone: IgM [Mass/volume] in Serum or Plasma IGM Lab Routine Multiple sclerosis ([facility]) 04/25/2022 11:12 AM [facility] Work Phone: End: 01-23-2025 MR Thoracic spine WO and W contrast IV MRI THORACIC SPINE WO/W IVCON Radiology Routine Multiple sclerosis ([facility]) 1 Occurrences starting 12/25/2023 until 01/23/2025 [facility] Work Phone: Comment on above: 1 Occurrences starti ng 12/25/2023 until 01/23/2025 OT PLAN OF CARE CERTIFICATION OT PLAN OF CARE CERTIFICATION Procedures Routine Multiple sclerosis ([facility]) Abnormal antibody titer Neurogenic bladder Lack of coordination Ordered: 05/30/2022 [facility] Work Phone: Comment on above: Ordered: 05/30/2022 Patient Education [facility] Work Phone: Patient referral [facility] Work Phone: PT PLAN OF CARE CERTIFICATION PT PLAN OF CARE CERTIFICATION Procedures Routine Abnormality of gait Multiple sclerosis (HCC) Ordered: 07/22/2022 [facility] Work Phone: Comment on above: Ordered: 07/22/2022 SPEECH PLAN OF CARE CERTIFICATION SPEECH PLAN OF CARE CERTIFICATION Procedures Routine Multiple sclerosis (HCC) Cognitive communication deficit Ordered: 05/30/2022 [facility] Work Phone: Comment on above: Ordered: 05/30/2022 SPEECH PLAN OF CARE CERTIFICATION SPEECH PLAN OF CARE CERTIFICATION Procedures Routine Cognitive communication deficit Ordered: 07/22/2022 [facility] Work Phone: Comment on above: Ordered: 07/22/2022 VARICELLA ZOSTER IGG VARICELLA Z YARELIS IGG Lab Routine Multiple sclerosis (HCC) 04/25/2022 11:12 AM EDT [facility] Work Phone: End: 04-03-2025 XR Cervical spine AP and Lateral and oblique XR CERV OTHER 4V AP/LAT/OBL Radiology Routine Neck pain 1 Occurrences starting 03/04/2024 until 04/03/2025 [facility] Work Phone: Comment on above: 1 Occurrences starti ng 03/04/2024 until 04/03/2025 XR Cervical spine AP and Lateral and oblique XR CERV OTHER 4V AP/LAT/OBL Radiology Routine Neck pain 03/04/2024 2:13 PM EDT [facility] End: 04-03-2025 XR Lumbar spine 3 Views XR LUMBAR GENERAL 3V AP/LAT/L5-S1 Radiology Routine Chronic midline low back pain without sciatica 1 Occurrences starting 03/04/2024 until 04/03/2025 [facility] Comment on above: 1 Occurrences starti ng 03/04/2024 until 04/03/2025 XR Lumbar spine 3 Views XR LUMBA R GENERAL 3V AP/LAT/L5-S1 Radiology Routine Chronic midline low back pain without sciatica 03/04/2024 2:12 PM EDT [facility] [address] Work Phone: [facility] NEGATED: Highlighted row has been ruled out! Planned Goals not documented [facility] [address] Work Phone: Immunizations Immunization Date Immunization Notes Care Provider Fa eleazar 01-15-2022 tetanus toxoid, redu minor diphtheria toxoid, and acellular pertussis vaccine, adsorbed Michelle Garcia MD Work Phone: [facility] Payers Date Payer Category Payer Self-pay [id number] 2023 Private Health Insurance [id number] 2022 Unknown ANTHEM BLUE CROS S AND BLUE SHIELD ANTHEM MEDIBLUE O [id number] 2022-Present [phone] [address] [place] [address] O [id number] 2022 Unknown [id number] 2021 Medicare [employer] MEDICARE WELLCARE BY KAYLYNN O SNP [id number] 2021-Present [phone] [address] [place] [address] O [id number] 2021 Medicare [id number] 2020 Private Health Insurance [id number] 2020 Medicaid MEDICAID [facility] MEDICAID [id number] 2020-Present [phone] [address] [place] [address] Medicaid [id number] 2020 Medicaid [id number] 2020 Medicaid [id number] 1985 Unknown [id number] 32 1985 Unknown [id number] [id number] 259 1985 Unknown [id number] [id number] 259 1985 Unknown [id number] [id number] 259 1985 Unknown [id number] [id number] 259 1985 Unknown [id number] [id number] 259 1985 Unknown [id number] [id number] 259 1985 Unknown [id number] [id number] 259 1985 Unknown [id number] 2.16.840.1.471034.3.579.2.1 259 1985 Unknown [id number] [id number] 259 1985 Unknown [id number] [id number] 259 Medicaid [id number] Medicare [id number] Unknown [id number] [id number] 31 Unknown [id number] [id number] 31 Unknown [id number] [id number] 31 Unknown [id number] 31 Social History Date Type Detail Facility Tobacco smoking stat [facility] Unknown if ever smoked [facility] Start: 1985 Sex Assigned At Female C [facility] Start: 11-15-2019 End: 07-17-2023 Tobacco smoking status NHIS Never smoked tobacco [facility] Start: 11-15-2019 End: 07-17-2023 Tobacco use and exposure Smokeless tobacco non-user [facility] Start: 01-15-2022 End: 03-04-2024 Alcohol intake Ex-drinker (finding) [facility] Start: 11-15-2019 History SDOH Alcohol Comment occas [facility] Start: 03-16-2022 End: 08-08-2022 Exposure to SARS-CoV-2 (event) Not sure [facility] Start: 04-25-2022 Education 17 [facility] Start: 12-16-2022 History SDOH Alcohol Frequency 1 [facility] Start: 12-16-2022 History SDOH Alcohol Std Drinks 0 [facility] Start: 12-16-2022 History SDOH Social Connections Phone 4 [facility] Start: 12-16-2022 History SDOH Social Connections Membership 2 [facility] Start: 12-16-2022 History SDOH Social Connections Living 7 [facility] Start: 12-16-2022 History SDOH Physica l Activity MPS 3 [facility] Start: 12-16-2022 History SDOH Stress 5 [facility] Start: 12-16-2022 End: 07-17-2023 History of Social function [facility] Start: 12-16-2022 End: 07-17-2023 Social connection and isolation panel [facility] Do you belong to any clubs or organizations such as oriental orthodox groups, unions, fraternal or athletic groups, or school groups? No [facility] Are you now , , , , never or living with a partner? Never [facility] How often to you hav e a drink containing alcohol? Never [facility] How many standard drinks containing alcohol do you have on a typical day? Patient does not drink [facility] How hard is it for y ou to pay for the very basics like food, housing, medical care, and heating Somewhat hard [facility] Do you feel stress - tense, restless, nervous, or anxious, or unable to sleep at night because your mind is troubled all the time - these days [OSQ] Very much [facility] (I/We) worried sen er (my/our) food would run out before (I/we) got money to buy more. Often true [facility] Start: 12-23-2020 Gender identity Identifies as female gender (finding) [facility] Start: 12-23-2020 Sexual orientation Heterosexual (brandin whalen) [facility] History of tobacco use Passive smoker [facility] Start: 12-11-2023 End: 12-23-2023 Alcohol intake Lifetime non-drinker (finding) [facility] NEGATED: Highlighted row - - QY-Alwfgcccgc-Xasqe vahid 2299 Work Phone: Goals Date Patient Goal Desired Activity /State Personal health goal Functional Status Date Assessment Result Facility NEGATED: Highlighted row Functional performance Functional status health issues are not documented Disease AN-Lnafravang-Mkbsa vahid 2299 Work Phone: Mental Status Date Assessment Result Facility NEGATED: Highlighted row Cognitive function [Interpretation] Cognitive status health issues are not documented Disease LP-Fiokbryxbq-Lnvbu vahid [address] Work Phone: Clinical Notes 04-17-2021 to 03-31-2024 Esther (It Operations Analyst), Thang - 03/31/2024 10:54 AM Usman (It Operations Analyst)Madison - 03/31/2024 10:54 AM Clarice Luo HUC - 03/30/2024 2:55 PM EDTPatient InstructionsPatient Instructions Note Date & Type Note Facility 03-31-2024 History of Present illness Narrative [facility] received prescription(s) for Glatiramer from Dr. Tor Hernandez office. Benefits investigation was conducted, indicating we will need to call to verify if a prior authorization is required/needed by pt's plan with Sherri . Thang Santana CPhT (Dee) [facility]/Cardiology/Infections Disease [facility] P: F: PA for pt's Glatiramer has been approved by Sherri. Reuben 03/31/24 - 11/09/24. [place] [address] [facility] [place] [id number] [place] [address] Email: [email or web address] documented in this encounter [facility] 03-30-2024 History of Present illness Narrative Faxed Glatiramer Acetate form with ins info documented in this encounter [facility] 03-30-2024 Instructions Tor Hernandez APRN.CNP - 03/30/2024 2:27 PM EDT PLAN: - Stop Ocrevus for now - Will hold on further MRI monitoring for now - Will submit for Copaxone during - Stop Ampyra and tizanidine - Continue vitamin D and magnesium - Follow up in 8-9 months virtually documented in this encounter [facility] 03-30-2024 History of Present illness Narrative Images from the original note were not included. [facility] FOLLOWUP/ESTABLISHED VIRTUAL PATIENT VISIT PRINCIPAL NEUROLOGIC DIAGNOSIS: Multiple Sclerosis DISEASE SUMMARY Date of onset: 03/2007 Date of diagnosis of MS: 03/2007 Disease course at onset: Relapsing-Remitting Current disease course: Progressive without relapses Previous disease therapies: - Betaseron [id number] - Copaxone [id number] - Tysabri 2009-Summer 2019 (stopped due to [...] over 3 weeks following occipital relase - [id number] recurrent OS ON - [id number] several relapses including L numbness, weakness, constipation, urinary urgency - 2019 R weakness and numbness needing a wheelchair, hospitalized at [facility] (off Tysabri x3 months due to planning ). Also had OD vision loss at this time. At this time also notes substantial mold exposure due to it being all over her apt (has since moved). CHIEF COMPLAINT: Follow up, discussion on recent + Usual treating team: Christina Today's visit is being completed virtually over [employer]. I have communicated my name and active licensure. The patient's identity and physical location were verified at the time of this visit. Either the patient or their legal kiosk sales representative has been informed of the risks and benefits of -- and alternatives to -- treatment through a remote evaluation and consents to proceed with the evaluation remotely. Patient consented to proceed with virtual visit. The patient is unaccompanied. The patient was last seen 12/25/23, currently taking Ocrevus. Since the patient's last visit the patient reports overall feeling stable. INTERVAL HISTORY: Found out last week she was Was unintentional, was on control and reports compliance D&C 12/29/23, thinks last period was end of January/early February Overall feeling well from symptom perspective Still processing emotionally but is thankful Home care was not able to continue as she was able to leave the house to take her child to school Is no longer receiving therapy due to that Is trying to find a pet trainer as she knows she needs to improve her strength Last took Copaxone and felt good Would like to continue Copaxone again this - will need her nursing home assistant administrator to administer injections Does plan to breastfeed after this Recalls her MS symptoms were stable until ~ 3 months pp Neuro-QoL Functions (higher=better functioning) Flowsheet Row Social Work from 01/21/2024 in [facility] Office Visit from 07/23/2023 in [facility] Office Visit from 01/17/2023 in [facility] Upper Extremity Domain T Score 28 28.29 31.35 Lower Extremity Domain T Score 36 36.94 36.94 Cognitive Function Domain T Score 38 30.7 28.53 Positive Affect Well Being T Score -- -- -- Ability To Participate In Social Roles T Score 42 39.9 39.9 Satisfaction With Social Roles T Score 40 39.66 39.66 Neuro-QoL Symptoms (higher=worse symptoms) Flowsheet Row Social Work from 01/21/2024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
== END 2024-04-01 13:05 | disposition home or self-care (01) ==
LOC: NOMS 13:04
PROVIDERS: Visit Provider Obstetrics & Gynecology
DX: Z34.91 Encounter for supervision of normal pregnancy, unspecified, first trimester (principal); Z3A.10 10 weeks gestation of pregnancy; N92.6 Irregular menstruation, unspecified
CPT/HCPCS: 76817

== ENCOUNTER 2024-04-02 10:06 | Outpatient (OUT) | payer MEDICARE, MEDICAID, SELFPAY ==
[2024-04-02 10:48] LABS: Basophils Percent Auto 0.5 % (0.2-2.0); Eosinophils Percent Auto 0.4 % (0.9-7.0); Hematocrit 36.8 % (36.0-48.0); Hemoglobin 11.6 g/dL (12.0-16.0); Immature Granulocytes Abs Auto 0.02 10^3/uL (0.00-0.03); Immature Granulocytes Pct Auto 0.3 % (0.0-0.5); Lymphocytes Absolute Auto 1.5 10^3/uL (1.2-3.8); Lymphocytes Percent Auto 20.5 % (20.5-60.0); Mean Corpuscular HGB Conc 31.5 g/dL (29.9-35.2); Mean Corpuscular Hemoglobin 25.1 pg (26.7-34.0); Mean Corpuscular Volume 79.5 fL (81.0-99.0); Mean Platelet Volume 13.7 fL (9.5-13.5); Monocytes Absolute Auto 0.5 10^3/uL (0.3-0.8); Monocytes Percent Auto 7.1 % (1.7-12.0); Neutrophils Absolute Auto 5.2 10^3/uL (1.4-6.5); Neutrophils Percent Auto 71.2 % (43.0-75.0); Platelet Count 209 10^3/uL (150-450); Red Blood Count 4.63 10^6/uL (4.20-5.40); Red Cell Distribution Width 16.3 % (11.0-15.0); White Blood Count 7.4 10^3/uL (4.0-11.0)
[2024-04-02 11:17] LABS: Estimated Average Glucose 103 mg/dL; Glycohemoglobin A1C 5.2 % (4.5-6.2)
[2024-04-03 08:15] LABS: HBsAg Screen Negative (Negative); HCV Ab Non Reactive (Non Reactive); HIV Ab/p24 Ag Screen Non Reactive (Non Reactive)
[2024-04-03 11:10] LABS: Rapid Plasma Reagin, Quant Non Reactive titer (NonRea<1:1)
[2024-04-04 07:29] LABS: BOX Test Sent Out DONE
== END 2024-04-02 10:07 | disposition home or self-care (01) ==
LOC: LAB 10:07
PROVIDERS: Visit Provider Obstetrics & Gynecology
DX: N92.6 Irregular menstruation, unspecified (principal); Z36.0 Encounter for antenatal screening for chromosomal anomalies; R82.998 Other abnormal findings in urine
CPT/HCPCS: 36415; 83036; 85025; 86592; 86762; 86803; 86850; 86900; 86901; 87086; 87340; 87389

== ENCOUNTER 2024-05-18 12:33 | Outpatient (OUT) | payer MEDICARE, MEDICAID, SELFPAY ==
[2024-05-18 14:25] LABS: Thyroid Stimulating Hormone 1.042 uIU/mL (0.358-3.740)
[2024-05-20 01:09] LABS: AFP Value 35.5 ng/mL (.); Gest. Age on Collection Date 16.9 weeks (.); Gestat. Age Based On Ultrasound (.); Insulin Dep Diabetes No (.); Maternal Age At EDD 39.2 yr (.); OSBR Risk 1 IN 10000 (.); Results Report (.)
== END 2024-05-18 12:34 | disposition home or self-care (01) ==
LOC: LAB 12:35
PROVIDERS: Visit Provider Obstetrics & Gynecology
DX: Z34.92 Encounter for supervision of normal pregnancy, unspecified, second trimester (principal); E03.9 Hypothyroidism, unspecified
CPT/HCPCS: 36415; 82105; 84443

== ENCOUNTER 2024-05-25 13:12 | Outpatient (OUT) | payer MEDICARE, MEDICAID, SELFPAY ==
--- NOTE | 2024-05-25 13:17 | US_ITS ---
[address] [address] Patient Name: CAROL ANN ROMAN MRN: [id number] date: 1985 Sex: F Assigned Patient Location: US Current Patient Location: US Accession/Order Number: [id number] Exam Date: 05/25/2024 13:16 Report Date: 05/25/2024 14:13 At the request of: JOHN VERDIN Procedure: US OB cervical length EXAMINATION: US OB cervical length HISTORY: HISTORY OF LEEP COMPARISON: 04/01/2024 FINDINGS: position: Cephalic presentation, longitudinal lie Heart rate: 141 beats minute Cervix: 2.6 cm, closed Clinical age: 17 weeks 6 days Clinical ELLIOTT: 10/27/2024 US/US OB cervical length IMPRESSION: Closed cervix measuring 2.6 cm in length Electronically authenticated by: JANICE ERWIN Date: 05/25/2024 14:13
== END 2024-05-25 13:13 | disposition home or self-care (01) ==
LOC: US 13:12
PROVIDERS: Visit Provider Obstetrics & Gynecology
DX: Z36.86 Encounter for antenatal screening for cervical length (principal); Z3A.17 17 weeks gestation of pregnancy
CPT/HCPCS: 76817

== ENCOUNTER 2024-06-08 08:32 | Outpatient (OUT) | payer MEDICARE, MEDICAID, SELFPAY ==
--- NOTE | 2024-06-08 08:34 | US_ITS ---
[address] [address] Patient Name: CAROL ANN ROMAN MRN: [id number] date: 1985 Sex: F Assigned Patient Location: [facility] Current Patient Location: [facility] Accession/Order Number: [id number] Exam Date: 06/08/2024 08:35 Report Date: 06/08/2024 10:18 At the request of: JOHN VERDIN Procedure: US OB cervical length EXAMINATION: US OB cervical length HISTORY: SHORT CERVIX, HISTORY OF LEEP COMPARISON: 05/25/2024 FINDINGS: position: Cephalic Cervix: 2.4 cm, closed Clinical age: 19 weeks 6 days US/US OB cervical length IMPRESSION: Closed short cervix measuring 2.4 cm in length. The cervical length is decreased from the prior exam Electronically authenticated by: JANICE ERWIN Date: 06/08/2024 10:18
--- OUTSIDE RECORDS SUMMARY | 2024-06-08 08:52 | XMS_ITS | CCD ---
Author Organization [facility] Care Team Providers Care Delivery Table Operator Name Role Phone NON, STAFF Primary Care [...] Care Provider Clarke Hu Attending Provider JAHAIRA JULIO Attending Unavailable GAEL HOWARD Attending Unavailable GAEL HOWARD Attending Unavailable GAEL HOWARD Attending Unavailable KELECHI TATUM Attending Unavailable MAYTE, CLARKE Attending Unavailable GAEL HOWARD Attending Unavailable MAYTE, CLARKE Attending Unavailable KELECHI TATUM Attending Unavailable MAYTE, CLARKE Attending Unavailable Mayte, Clarke Attending Unavailable Janice Lane Primary Care Unavailable Mayte, Clarke Admitting Unavailable Mayte, Clarke Attending Unavailable Mayte, Clarke Admitting Unavailable DomingoJanice Primary Care Unavailable Mayte, Clarke Attending Unavailable Mayte, Clarke Admitting Unavailable DomingoJanice hoffman Primary Care Unavailable Mayte, Clarke Attending Unavailable Mayte, Clarke Admitting Unavailable Janice Lane Primary Care Unavailable JANICE LANE Primary Care Unavailable JANICE LANE Attending Unavailable JANICE LANE Referring Unavailable JANICE LANE Primary Care Unavailable TOR HERNANDEZ Attending Unavailable JOSE RAUL SANTANA Referring Unavailable JANICE LANE Primary Care Unavailable GERMANIA WILKINSON Attending Unavailable JANICE LANE Primary Care Unavailable AYAN MARIE Attending Unavailable JANICE LANE Primary Care Unavailable TOR HERNANDEZ Attending Unavailable JANICE LANE Primary Care Unavailable IBAN LAZO Attending Unavailable JANCIE LANE Primary Care Unavailable IBAN LAZO Attending Unavailable JANICE LANE Primary Care Unavailable GERMANIA WILKINSON Referring Unavailable JANICE LANE Primary Care Unavailable JANICE LANE Referring Unavailable JANICE LANE Primary Care Unavailable JANICE LANE Referring Unavailable JANICE LANE Primary Care Unavailable IBAN LAZO Attending Unavailable JANICE LANE Primary Care Unavailable IBAN LAZO Attending Unavailable JANICE LANE Primary Care Unavailable JANICE LANE Primary Care Unavailable JANICE LANE Attending Unavailable MICHELLE GARCIA Referring Unavailable JANICE LANE Primary Care Unavailable JANICE LANE Referring Unavailable JANICE LANE Primary Care Unavailable NAYLA LOUIS Attending Unavailable JANICE LANE Referring Unavailable JANICE LANE Primary Care Unavailable JANICE LANE Primary Care Unavailable JANICE LANE Primary Care Unavailable ROXY HOGAN Attending Unavailable TOR HERNANDEZ Attending Unavailable JOSE RAUL SANTANA Referring Unavailable JANICE LANE Primary Care Unavailable TOR HERNANDEZ Referring Unavailable JANICE LANE Primary Care Unavailable MIRNA BAXTER Attending Unavailable SELF Referring Unavailable JANICE LANE Primary Care Unavailable Unavailable Unavailable Unavailable Allergies Allergy Classification Reported Allergen(s) Allergy Type Date of Onset Reaction(s) Facility Lecithin (1 source) Lecithin Drug Allergy 9 Other: See Comments, Unknown, Itching, GI Upset [facility] Soy (1 source) Soy protein Food Allergy 0 Intolerance [facility] Soybean Lecithin (1 source) Soybean Lecithin Drug Allergy 2 GI Upset, Unknown [facility] Wheat gluten extract (1 source) Wheat gluten extract Drug Allergy 9 Other: See Comments, Hives, Itching [facility] (2 sources) glutenin; Translations: [GLUTEN] Allergy to substance (finding) 0 [facility] Repository (5 sources) Soy protein; Translations: [SOY ALLERGY] Propensity to adverse reactions to drug (disorder) 0 Headache, Unknown [facility]ository (5 sources) GLUTEN MEAL; Translations: [GLUTEN MEAL] Propensity to adverse reactions to drug (disorder) 9 Hives, Itching, Unknown [facility] (1 source) LECITHIN ORGANIC-SOYBEAN LECITHIN; Translations: [LECITHIN ORGANIC-SOYBEAN LECITHIN] Propensity to adverse reactions to drug (disorder) 9 [facility] (20 sources) Lecithin; Translations: [LECITHIN] Drug Allergy 9 Other: See Comments, Unknown, Itching, GI Upset, Nausea And Vomiting [facility] Work Phone: (20 sources) Soy protein; Translations: [SOY] Drug Intolerance 0 Intolerance [facility] (20 sources) Wheat gluten extract Drug Allergy 9 Other: See Comments, Hives, Itching [facility] (20 sources) Soybean Lecithin; Translations: [LECITHIN, SOY] Drug Allergy 2 GI Upset, Unknown [facility] (4 sources) Other Allergy to substance [...] on above: Take 1 capsule by mo [facility] one time a week. 12 hr dalfampridine [...] (6 sources) Histamine-1 Receptor Antagonist Start: 04-09-20 19 [...] tablet (20 sources) Start: 02-14-20 End: 03-15-20 take 1 [...] dose nasal spray (20 sources) Corticosteroid Start: take 1 spray(s) nasal route once daily fluticasone (FLONASE) 50 mcg/actuation nasal spray Use 1 [place] in each nostril once daily. 1 g 5 09/01/2020 Active Comment on above: Use 1 [place] in each nostril once daily. 1 ml glatiramer acetate 40 mg/ml prefilled syringe (5 sources) Start: End: inject 40 mg by subcutaneous injection once glatiramer (COPAXONE) 40 mg/mL injection Indications: Multiple sclerosis (HCC) Inject 40 mg subcutaneously every Friday, Friday, and Friday. 12 mL 2 03/31/2024 07/01/2024 Active ibuprofen 600 mg oral tablet (18 [...] as needed. mirtazapine 15 mg oral tablet (13 sources) Start: 03-04-20 24 take 1 tablet [...] Active multivitamin with minerals (MULTIPLE VITAMIN-MINERALS) tablet (20 sources) take 1 tablet by mouth every twenty-four hours multivitamin with minerals (MULTIPLE VITAMIN-MINERALS) tablet Take 1 tablet by mouth every 24 hours. 0 Active Comment on above: Take 1 tablet by jose ramon every 24 hours. Zplclikyxltl-Rcwo-Ouv ic Acid (1 source) Start: 04-09-20 19 take 1 tablet by mouth once daily Vxllrozrsucf-Qlvy-Gc lic Acid Active 1 TAB Oral Daily April 09, 2019 12:28pm Cowuxxxulpht-Evbj-Sxx ic Acid (Multi-Day With Iron) 18-400 mg-mcg Tablet (5 sources) Start: 04-09-20 19 take 1 tablet by mouth once daily Ttqmeradpawe-Qkoa-Pf lic Acid (Multi-Day With Iron) 18-400 mg-mcg Tablet Active 1 TAB PO Daily April 09, 2019 12:28pm Start: 04-09-2019 take 1 tablet by jose ramon th once daily Orbmhdrberel-Mwef-Rtskl Acid (Multi-Day With Iron) 18-400 mg-mcg Tablet Active 1 TAB PO Daily April 09, 2019 12:00am Start: 04-09-2019 take 1 tablet by jose ramon th once daily Rnicxwothtsw-Zmpz-Knovf Acid (Multi-Day With Iron) 18-400 mg-mcg Tablet [...] 1 Drop (AK-DILATE, SABINA-SYNEPHRINE) polyethylene glycol 3350 23462 mg powder for oral solution (20 sources) Osmotic Laxative Start: 03-30-2024 End: 05-29-2024 polyethylene glycol 3350 (MIRALAX) 17 gram/dose powder Indications: Multiple sclerosis (HCC) , Constipation, unspecified constipation type Take 17 g by mouth once daily. Dissolve dose in 4 - 8 ounces of liquid and take as directed. 510 g 1 03/30/2024 05/29/2024 Active Start: 04-19-2021 End: 08-14-2022 polyethylene glycol 3350 (NV RALAX) 17 gram/dose powder Indications: Chronic idiopathic [...] ramon th every 8 hours as needed. tropicamide 10 [...] every four to six hours Hydrocodone-Acetam inophen ([place]) 5-325 mg Tablet Discontinued 1 TAB PO [...] Take by mouth once d aily. Mag Ptiyg-R9-Okwdiisg Rt Xt (6 sources) Vitamin D Start: 04-09-2019 End: 04-02-2022 Mag Baojl-A1-Pbwnfguw Rt Xt Discontinued TABLET April 09, 2019 12:28pm April 02, 2022 5:24pm Start: 04-09-2019 Mag Oxide-D3-T urmeric Rt Xt Active April 09, 2019 12:28pm Start: 04-09-2019 End: 04-02-2022 Mag Bvxwe-Z9-Pgvigmow Rt Xt Discontinued TABLET April 09, 2019 12:00am April 02, 2022 5:24pm Start: 04-09-2019 End: 04-02-2022 Mag Iixhe-X2-Loghhqdp Rt Xt Discontinued TABLET April 08, 2019 [...] Discontinued Start: 08-08-2022 take 1 capsule by mo [...] 2019 12:00am April 02, 2022 5:23pm levonorgestrel 0.020749 mg/hr intrauterine system (6 sources) Progestin, Progestin-containing [...] on above: Take 1 capsule by mo [facility] DAILY (6 AM). Magnesium (20 sources) End: [...] Take 20 mEq by mouth as needed. 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; Translations: [History of multiple sclerosis] Episodic [...] Translations: [Cervicalgia] Onset: 03-04-2024 03-04-2024 Episodic Unclassified (6 sources) Sleep Efficiency Onset: 03-30-2024 03-30-2024 Unclassified (1 source) Chronic midline low back pain without sciatica; Translations: [Chronic midline low back pain without sciatica] Onset: 03-04-2024 Viral infection (4 sources) Disease caused by 2019-nCoV; Translations: [COVID-19] 10-28-2022 Episodic Past or Other Problems Problem Classification Problem Date Documented Da te Episodic/Chronic Coma; stupor; and brain damage (13 sources) Daytime somnolence; Translations: [Somnolence] Onset: 07-28-2017 Resolved: 04-20-2021 04-20-2021 Episodic Immunizations and screening for infectious disease (20 sources) Antibody titer - finding; Translations: [Raised antibody titer] Onset: 01-08-2021 01-11-2021 Episodic Other aftercare (15 sources) Patient encounter status; Translations: [Other assisted (current) drug therapy] Onset: 01-08-2021 Resolved: 01-11-2021 Episodic Other bone disease and musculoskeletal deformities (13 sources) Costal chondritis; Translations: [Chondrocostal junction syndrome [[place]]] Onset: 04-17-2021 Resolved: 04-20-2021 04-20-2021 Episodic Other complications of (13 sources) Elderly primigravida; Translations: [Supervision of elderly primigravida, second trimester] Onset: 2020 Resolved: 01-11-2021 01-11-2021 Episodic Other complications of (13 sources) Previous operation to cervix affecting ; Translations: [Maternal care for other abnormalities of cervix, second trimester] Onset: 2020 Resolved: 01-11-2021 01-11-2021 Episodic Other complications of (13 sources) Poor growth affecting management; Translations: [Maternal care for other known or suspected poor growth, third trimester, not applicable or unspecified] Onset: 12-25-2020 Resolved: 01-11-2021 01-11-2021 Episodic Other complications of (13 sources) Low maternal weight gain; Translations: [Low weight gain in , third trimester] Onset: 01-02-2021 Resolved: 01-11-2021 01-11-2021 Episodic Other complications of (13 sources) Group B Streptococcus carrier; Translations: [Streptococcus [...] 04-17-2021 Episodic Other and delivery including normal (13 sources) Normal ; Translations: [Encounter for supervision [...] Resolved: 07-17-2023 04-17-2021 Episodic Residual codes; unclassified (13 sources) Edema of lower extremity; Translations: [Localized edema] Onset: 04-17-2021 Resolved: 04-20-2021 04-20-2021 Episodic Syncope (20 sources) Syncope; Translations: [Syncope and collapse] Onset: 12-04-2018 Resolved: 07-17-2023 04-17-2021 Episodic Unclassified (13 sources) NO SHOW Onset: 01-22-2021 Resolved: 04-17-2021 04-17-2021 Results Test Name Value Interpretation Reference Range Facility [facility]24[facility]2024 [facility] ----- SMOOTH MARTINEZ ([id number]) 1985 F Date Time Provider Department 03/24/24 TOR HERNANDEZ During your visit today, we [...] Date Reviewed: 01/19/2024 Reviewed by: Kaitlyn Forbes, tube trailer filler - Fully Assessed Reason for Visit: Appointment [...] (FLONASE) 50 mcg/actuation nasal spray Use 1 [place] in each nostril once daily. Problem List [...] Status:Closed by VIVIANA SANDS on 03/24/24 Normal [facility] HCG,Quantitativeon HCG,Quantitative 676616.00 m[iU]/mL Normal [facility] Comment on above: Result Comment: Appr oximate Approximate hCG Gestational Age Range (mIU/ml) (weeks) 0.2-1 5-50 1-2 50-500 2-3 100-5,000 3-4 500-10,000 4-5 1,000-50,000 5-6 10,000-100,000 6-8 15,000-200,000 8-12 10,000-100,000 PERFORMED BY: [place] [address] PATHOLOGIST SENIOR JAVA SOFTWARE ENGINEER ALEN PRICE M.D. Performed By: #### H CGQNT #### [address] US breast BI limitedon 03-17 breast BI limited [facility] Main Branch [address] [place] [address] Mammography Report Signed Patient: Smooth Martinez MR#: [id number] : 1985 Acct:[id number] Age/Sex: 38 / F ADM Date: 03/17/24 Loc: MD Room: Type: [facility] Attending Dr: Clarke Hu Copies to: Clarke Lane MD Ordering Provider: Clarke Hu Date of Service: 03/17/24 MM/MM diagnostic mammo BI w/CAD: RT BREAST LUMP ([id number]) US/US breast BI limited: BILATERAL BREAST LUMPS [...] Leonel Chin M.D.03/17/2024 9:57 AM Dictation Location: [facility] Transcribed By: MEGHANN 03/17/24956 Dictated By: Leonel Chin II, MD 03/17/24922 Signed By: 03/17/24956 Normal [facility] ESR Vaishali method (Bld) [Velocity]on 03-05-2024 ESR (Bld) [Velocity] 5 mm/h [facility] Interpretation and review of laboratory results Normal [facility] JOSSELIN BY IFA WITH REFLEXon Nuclear Ab Ql (S) Negative Normal Negative [facility] Comment on above: Order Comment: Speci men Type: BLOOD SPECIMENOrdering Facility: [facility] Address: [address] [place] [address] Result Comment: Anti -nuclear antibody test is used as an aid in diagnosis of systemic autoimmune diseases. Where positive and clinically warranted, follow-up using disease-specific testing is recommended. Low positive titers are not uncommon with advanced age, certain chronic infections, and malignancies among others. Test methodology: Indirect fluorescence immunoassay (IFA) using HEp-2 cells. Performed By: #### A NAIFR ####[facility] LABCLIA [id number] [place] [address] [place] CBC W Auto Differential pane l (Bld)on 03-04-2024 Basophils (Bld) [#/Vol] 0.04 10*3/uL [facility] Basophils/100 WBC (Bld) 0.5 % [facility] Differential cell count method Nom (Bld) Auto [facility] Eosinophils (Bld) [#/Vol] [facility] Eosinophils/100 WBC (Bld) 0.3 % [facility] Erythrocyte distribution width (RBC) [Ratio] 15.2 % High 11.5 - 15.0 % [facility] Hematocrit (Bld) [Volume fraction] 40.1 % 36.0 - 46.0 % [facility] Hemoglobin (Bld) [Mass/Vol] 12.4 g/dL 11.5 - 15.5 g/dL [facility] Immature granulocytes (Bld) [#/Vol[facility] Immature granulocytes/100 WBC (Bld) 0.3 % [facility] Interpretation and review of laboratory results Abnormal [facility] Lymphocytes (Bld) [#/Vol] 1.62 10*3/uL [facility] Lymphocytes/100 WBC (Bld) 21.7 % [facility] MCH (RBC) [Entitic mass] 24.1 pg Low 26.0 - 34.0 pg [facility] MCHC (RBC) [Mass/Vol] 30.9 g/dL 30.5 - 36.0 g/dL [facility] MCV (RBC) [Entitic vol] 77.9 fL Low 80.0 - 100.0 fL [facility] Monocytes (Bld) [#/Vol] 0.69 10*3/uL [facility] Monocytes/100 WBC (Bld) 9.2 % [facility] Neutrophils (Bld) [#/Vol] 5.08 10*3/uL [facility] Neutrophils/100 WBC (Bld) 68.0 % [facility] Nucleated RBC (Bld) [#/Vol] [facility] Nucleated RBC/100 WBC (Bld) [Ratio] 0.0 % /100 WBC [facility] Platelet mean volume (Bld) [Entitic vol] [facility] Comment on above: Unable to Report. Platelets (Bld) [#/Vol] 185 10*3/uL [facility] Comment on above: Results checked and verified.No clot detected. RBC (Bld) [#/Vol] 5.15 10*6/uL 3.90 - 5.2 0 m/uL [facility] WBC (Bld) [#/Vol] 7.47 10*3/uL [facility] This is an appended report. These results have been appended to a previously verified report. [facility] Basophils (Bld) [#/Vol] 0.04 10*3/uL Normal <0.11 [facility] Comment on above: Order Comment: Speci men Type: BLOOD SPECIMENOrdering Facility: [facility] Address: [address] [place] [address] Performed By: #### 5 7021-8, 4537-7 ####[facility] LABCLIA [id number] [place] [address] [place] Basophils/100 WBC (Bld) 0.5 % Normal [facility] Comment on above: Order Comment: Speci men Type: BLOOD SPECIMENOrdering Facility: [facility] Address: [address] [place] [address] Performed By: #### 5 7021-8, 4537-7 ####[facility] LABCLIA [id number] [place] [address] [place] Differential cell count method Nom (Bld) Auto Normal [facility] Comment on above: Order Comment: Speci men Type: BLOOD SPECIMENOrdering Facility: [facility] Address: [address] [place] [address] Performed By: #### 5 7021-8, 7-7 ####[facility] LABCLIA [id number] [place] [address] [place] Eosinophils (Bld) [#/Vol] 10*3/uL Normal <0.46 [facility] Comment on above: Order Comment: Speci men Type: BLOOD SPECIMENOrdering Facility: [facility] Address: [address] [place] [address] Performed By: #### 5 7021-8, 4536-7 ####[facility] LABCLIA [id number] [place] [address] [place] Eosinophils/100 WBC (Bld) 0.3 % Normal [facility] Comment on above: Order Comment: Speci men Type: BLOOD SPECIMENOrdering Facility: [facility] Address: [address] [place] [address] Performed By: #### 5 7021-8, 4536-7 ####[facility] LABCLIA [id number] [place] [address] [place] Erythrocyte distribution width (RBC) [Ratio] 15.2 % High 11.5-15.0 [facility] Comment on above: Order Comment: Speci men Type: BLOOD SPECIMENOrdering Facility: [facility] Address: [address] [place] [address] Performed By: #### 5 7021-8, 4536-7 ####[facility] LABCLIA [id number] [place] [address] [place] Hematocrit (Bld) [Volume fraction] 40.1 % Normal 36.0-46.0 [facility] Comment on above: Order Comment: Speci men Type: BLOOD SPECIMENOrdering Facility: [facility] Address: [address] [place] [address] Performed By: #### 5 7021-8, 4536-7 ####[facility] LABCLIA [id number] [place] [address] [place] Hemoglobin (Bld) [Mass/Vol] 12.4 g/dL Normal 11.5-15.5 [facility] Comment on above: Order Comment: Speci men Type: BLOOD SPECIMENOrdering Facility: [facility] Address: [address] [place] [address] Performed By: #### 5 7021-8, 4536-7 ####[facility] LABCLIA [id number] [place] [address] [place] Immature granulocytes (Bld) [#/Vol] 10*3/uL Normal <0.10 [facility] Comment on above: Order Comment: Speci men Type: BLOOD SPECIMENOrdering Facility: [facility] Address: [address] [place] [address] Performed By: #### 5 7021-8, 4536-7 ####[facility] LABCLIA [id number] [place] [address] [place] Immature granulocytes/100 WBC (Bld) 0.3 % Normal [facility] Comment on above: Order Comment: Speci men Type: BLOOD SPECIMENOrdering Facility: [facility] Address: [address] [place] [address] Performed By: #### 5 7021-8, 4536-7 ####[facility] LABCLIA [id number] [place] [address] [place] Lymphocytes (Bld) [#/Vol] 1.62 10*3/uL Normal 1.00-4.00 [facility] Comment on above: Order Comment: Speci men Type: BLOOD SPECIMENOrdering Facility: [facility] Address: [address] [place] [address] Performed By: #### 5 7021-8, 4536-7 ####[facility] LABIA [id number] [place] [address] [place] Lymphocytes/100 WBC (Bld) 21.7 % Normal [facility] Comment on above: Order Comment: Speci men Type: BLOOD SPECIMENOrdering Facility: [facility] Address: [address] [place] [address] Performed By: #### 5 7021-8, 7 ####[facility] LABIA [id number] [place] [address] [place] MCH (RBC) [Entitic mass] 24.1 pg Low 26.0-34.0 [facility] Comment on above: Order Comment: Speci men Type: BLOOD SPECIMENOrdering Facility: [facility] Address: [address] [place] [address] Performed By: #### 5 7021-8, 7 ####[facility] LABIA [id number] [place] [address] [place] MCHC (RBC) [Mass/Vol] 30.9 g/dL Normal 30.5-36.0 [facility] Comment on above: Order Comment: Speci men Type: BLOOD SPECIMENOrdering Facility: [facility] Address: [address] [place] [address] Performed By: #### 5 7021-8, 7 ####[facility] [id number] [place] [address] [place] MCV (RBC) [Entitic vol] 77.9 fL Low 80.0-100.0 [facility] Comment on above: Order Comment: Speci men Type: BLOOD SPECIMENOrdering Facility: [facility] Address: [address] [place] [address] Performed By: #### 5 7021-8, 4537-05 ####[facility] LABCLIA [id number] [place] [address] [place] Monocytes (Bld) [#/Vol] 0.69 10*3/uL Normal <0.87 [facility] Comment on above: Order Comment: Speci men Type: BLOOD SPECIMENOrdering Facility: [facility] Address: [address] [place] [address] Performed By: #### 5 7021-8, 7 ####[facility] LABIA [id number] [place] [address] [place] Monocytes/100 WBC (Bld) 9.2 % Normal [facility] Comment on above: Order Comment: Speci men Type: BLOOD SPECIMENOrdering Facility: [facility] Address: [address] [place] [address] Performed By: #### 5 7021-8, 7 ####[facility] LABIA [id number] [place] [address] [place] Neutrophils (Bld) [#/Vol] 5.08 10*3/uL Normal 1.45-7.50 [facility] Comment on above: Order Comment: Speci men Type: BLOOD SPECIMENOrdering Facility: [facility] Address: [address] [place] [address] Performed By: #### 5 7021-8, 7 ####[facility] LABIA [id number] [place] [address] [place] Neutrophils/100 WBC (Bld) 68.0 % Normal [facility] Comment on above: Order Comment: Speci men Type: BLOOD SPECIMENOrdering Facility: [facility] [place] Address: [address] [place] [address] Performed By: #### 5 7021-8, 4536-7 ####[facility]IA [id number] [place] [address] [place] Nucleated RBC (Bld) [#/Vol] 10*3/uL Normal <0.01 [facility] Comment on above: Order Comment: Speci men Type: BLOOD SPECIMENOrdering Facility: [facility] [place] Address: [address] [place] [address] Performed By: #### 5 7021-8, 7-7 ####[facility] LABCLIA [id number] [place] [address] [place] Nucleated RBC/100 WBC (Bld) [Ratio] 0.0 /100 WBC Normal [facility] Comment on above: Order Comment: Speci men Type: BLOOD SPECIMENOrdering Facility: [facility] [place] Address: [address] [place] [address] Performed By: #### 5 7021-8, 4536-7 ####[facility]IA [id number] [place] [address] [place] Platelet mean volume (Bld) [Entitic vol] Normal [facility] Comment on above: Order Comment: Speci men Type: BLOOD SPECIMENOrdering Facility: [facility] [place] Address: [address] [place] [address] Result Comment: Unab le to Report. Performed By: #### 5 7021-8, 7-7 ####[facility]IA [id number] [place] [address] [place] Platelets (Bld) [#/Vol] 185 10*3/uL Normal 150-400 [facility] Comment on above: Order Comment: Speci men Type: BLOOD SPECIMENOrdering Facility: [facility] [place] Address: [address] [place] [address] Result Comment: Resu lts checked and verified.No clot detected. Performed By: #### 5 7021-8, 7-7 ####[facility] LABCLIA [id number] [place] [address] [place] RBC (Bld) [#/Vol] 5.15 10*6/uL Normal 3.90-5.20 [facility] Comment on above: Order Comment: Speci men Type: BLOOD SPECIMENOrdering Facility: [facility] [place] Address: [address] [place], [place] [id number] Performed By: #### 5 7021-8, 4537-7 ####[facility] LABCLIA [id number] [place] [address] [place] WBC (Bld) [#/Vol] 7.47 10*3/uL Normal 3.70-11.00 [facility] Comment on above: Order Comment: Speci men Type: BLOOD SPECIMENOrdering Facility: [facility] [place] Address: [address] [place] [address] Performed By: #### 5 7021-8, 4537-7 ####[facility] LABCLIA [id number] [address] [place] CNOVon 03-04-2024 CNOV Office Visit ([facility] ) ----- SMOOTH MARTINEZ ([id number]) 1985 F Date Time Provider Department 03/04/24 1:[address] [facility] During your visit today, we recorded the following information about you: Temperature Pulse Blood pressure Weight 98.1 degrees 95/minute 101/66 55.7 kg Height 1.689 m Cintia Cadena MA 03/04/2024 1:00 PM Signed [facility] FA[facility] Please visit our lab at least 3-5 days before your scheduled appointment to have your lab work drawn, if lab work is ordered. This will allow us the ability to review your lab work results with you during your scheduled visit. [facility] HOURS: Lab is open Friday - Friday from 6:30am to 5pm and open 8am -12pm on Saturdays. [facility] HOURS: Friday- 7:30am to 5:30pm. Fridays [...] medicine, or pediatrics at any of our [facility] locations and main campus. Janice Lane MD 03/04/2024 3:19 PM Signed Smooth Pérez Juan is a 38 year old female here [...] for next physical. Patient Instructions [facility] Please visit our lab at least 3-5 days before your scheduled appointment to have your lab work drawn, if lab work is ordered. This will allow us the ability to review your lab work results with you during your scheduled visit. [facility] MCGRATH (more content not included)... Normal [facility] CRP SerPl-mCncon 03-04-2024 CRP [Mass/Vol] mg/L Normal <0.9 [facility] Comment on above: Order Comment: Speci men Type: BLOOD SPECIMENOrdering Facility: [facility] [place] Address: [address] [place] [address] Performed By: #### 1 988-5, 2276-4, 06103-2, 65705-9 ####[facility] LABCLIA [id number] [place] [address] [place] ESR Westergren method (Bld) [Velocity]on 03-04-2024 ESR (Bld) [Velocity] 5 mm/h Normal 0-20 [facility] Comment on above: Order Comment: Speci men Type: BLOOD SPECIMENOrdering Facility: [facility] [place] Address: [address] [place] [address] Performed By: #### 5 7021-8, 4537-7 ####[facility] LABCLIA [id number] [place] [address] [place] Ferritin SerPl-mCncon 2023 Ferritin [Mass/Vol] 14.2 ng/mL Low 14.7-205.1 [facility] Comment on above: Order Comment: Speci men Type: BLOOD SPECIMENOrdering Facility: [facility] [place] Address: [address] [place] [address] Performed By: #### 1 988-5, 2276-4, 27159-9, 87223-7 ####[facility] LABCLIA [id number] [place] [address] [place] Iron and Iron binding capaci ty panelon 03-04-2024 Iron [Mass/Vol] 90 ug/dL Normal 41-186 [facility] Comment on above: Order Comment: Speci men Type: BLOOD SPECIMENOrdering Facility: [facility] [place] Address: [address] [place] [address] Performed By: #### 1 988-5, 2276-4, 60689-1, 82654-1 ####[facility] LABCLIA [id number] [place] [id number] [place] Iron binding capacity [Mass/Vol] 351 ug/dL Normal 232-386 [facility] Comment on above: Order Comment: Speci men Type: BLOOD SPECIMENOrdering Facility: [facility] [place] Address: [address] [place] [address] Performed By: #### 1 988-5, 2276-4, 66605-7, 18685-6 ####[facility] [id number] [place] [id number] [place] Iron/TIBC [Molar ratio] 25.6 % Normal 15.0-57.0 [facility] Comment on above: Order Comment: Speci men Type: BLOOD SPECIMENOrdering Facility: [facility] [place] Address: [address] [place] [address] Performed By: #### 1 988-5, 2276-4, 20370-0, 34863-0 ####[facility] [id number] [place] [address] [place] Rheumatoid fact SerPl-aCncon 03-04-2024 Rheumatoid factor Qn [IU]/mL Normal <16 [facility] Comment on above: Order Comment: Speci men Type: BLOOD SPECIMENOrdering Facility: [facility] [place] Address: [address] [place] [address] Performed By: #### 1 988-5, 2276-4, 45024-5, 49202-5 ####[facility] [id number] [place] [id number] [place] Urate SerPl-mCncon Urate [Mass/Vol] 3.1 mg/dL Normal 2.5-6.6 [facility] Comment on above: Order Comment: Speci men Type: BLOOD SPECIMENOrdering Facility: [facility] [place] Address: [address] [place] [address] Performed By: #### 3 084-1 ####[facility] LABCLIA [id number] [place] [id number] [place] XR CERVICAL 4V [...] Preserved cervical disc spaces and neural foramina. Obstetrics Specialist: PSCB Transcribe Date/Time: Mar 08 2024 4:48P Dictated by : VIKTORIYA WALTER MD This examination was interpreted and the report reviewed and electronically signed by: VIKTORIYA WALTER MD on Mar 08 2024 4:50PM EST [id number] Normal [facility] XR LUMBAR 3V AP/LAT/L5-S1on 03-04-2024 [...] Unremarkable radiographic appearance of the lumbar spine. Obstetrics Specialist: ANGEL Transcribe Date/Time: Mar 08 2024 4:47P Dictated by : VIKTORIYA WALTER MD This examination was interpreted and the report reviewed and electronically signed by: VIKTORIYA WALTER MD on Mar 08 2024 4:48PM EST [id number] Normal [facility] A1C with Estimated Average G rober 02-24-2024 Glucose [Mass/Vol] 100 mg/dL Normal [facility] Comment on above: Result Comment: PERF ORMED BY: [place] [address] PATHOLOGIST SENIOR JAVA SOFTWARE ENGINEER ALEN PRICE M.D. Performed By: #### P TT, HCGQNT, CBC, PT, T4F, A1C [facility], TSH3 #### [address] HbA1c (Bld) [Mass fraction] 5.1 % Normal 4.3-5.6 [facility] Comment on above: Result Comment: Incr eased risk for diabetes: 5.7 - 6.4 diabetes: >6.4 glycemic control for adults with diabetes: <7.0 Performed By: #### P TT, HCGQNT, CBC, PT, T4F, A1C [facility], TSH3 #### [address] Activated partial thrombopla stin time (aPTT) in platelet poor plasma by coagulation aOrdered By: Clarke Hu on 02-24-2024 aPTT Coag (PPP) [Time] 33.7 s 25.1-36.5 [facility] Comment on above: A hematocrit value g reater than 55% may lead to inaccurate results in coagulation testing. Patients having hematocrit values >55% require a special collection tube for coagulation studies. Please contact the laboratory at [phone] for redraw instructions. Basophils Auto (Bld) [#/Vol] Ordered By: Clarke Hu on 02-24-2024 Basophils (Bld) [#/Vol] 0.0 10*3/uL 0.0-0.2 [facility] Basophils/100 WBC Auto (Bld) Ordered By: Clarke Hu on 02-24-2024 Basophils/100 WBC (Bld) 0.5 % . [facility] CNPNon 02-24-2024 CNPN Telephone (NEMSMLuís) ----- SMOOTH MARTINEZ F ([id number]) 1985 F Date Time Provider Department 02/24/24 TOR HERNANDEZ During your visit today, we recorded the following information about you: Shereen Scott 02/24/2024 2:33 PM Signed [facility] Call Name of caller : Milady Relationship to patient: Barney Osorio Return call phone number : [phone] Reason for call : Other : Brief description of concern : The patient is not considered homebound and they are unable to admit the patient. Mirna Baxter LSW 02/26/2024 10:08 AM [address] [facility]. I[facility] stated she encouraged pt to reach out to her insurance company and request an insurance CM to help her find an outside provider to provide services. Request sent to Tor Hernandez APRN.CNP for orders: non-[facility] outpatient PT, OT and SPT? Once she finds an outside provider, then CF can send the orders. DEZ Archer, [facility] Social Work Tor Hernandez APRN.CNP 02/26/2024 10:23 AM Signed Non-[facility] PT, OT, and [facility]AM[facility] PICKER orders placed Tor Hernandez APRN.CNP February 26, [...] Date Reviewed: 01/19/2024 Reviewed by: Kaitlyn Forbes, tube trailer filler - Fully Assessed Primary Visit Diagnosis:Multiple sclerosis (HCC) [G35] Order(s):CONSULT TO PHYSICAL THERAPY [9032] Order #: [id number]: 1 FUTURE CONSULT TO SUPERVISOR QUILTING [873885] Order #: [id number]: 1 FUTURE CONSULT TO SPEECH THERAPY [0030393] Order #: [id number]: 1 FUTURE Prescriptions as of 02/26/2024 - [...] (FLONASE) 50 mcg/actuation nasal spray Use 1 [place] in each nostril once daily. Problem List [...] extremity [R6 (more content not included)... Normal [facility] Choriogonadotropin.beta subu nit [Units/volume] in Serum or PlasmaOrdered By: Clarke Hu on 02-24-2024 HCG.beta subunit Qn 791.11 m[IU]/mL [facility] Comment on above: Approximate Approxim ate hCG Gestational Age Range (mIU/ml) (weeks)0.2-1 5-50 1-2 50-500 2-3 100-5,000 3-4 500-10,000 4-5 1,000-50,000 5-6 10,000-100,000 6-8 15,000-200,000 8-12 10,000-100,000 Complete Blood Count Auto Di ffon 02-24-2024 Basophils (Bld) [#/Vol] 0.0 10*3/uL Normal 0.0-0.2 [facility] Comment on above: Result Comment: PERF ORMED BY: [place] [address] PATHOLOGIST SENIOR JAVA SOFTWARE ENGINEER ALEN PRICE M.D. Performed By: #### P TT, HCGQNT, CBC, PT, T4F, A1C WTH eA, TSH3 #### [facility] [address] [place] [address] Basophils/100 WBC (Bld) 0.5 % Normal . [facility] Comment on above: Performed By: #### P TT, HCGQNT, CBC, PT, T4F, A1C WT eA, TSH3 #### [place] [address] [place] Eosinophils (Bld) [#/Vol] 0.0 10*3/uL Normal 0.0-0.45 [facility] Comment on above: Performed By: #### P TT, HCGQNT, CBC, PT, T4F, A1C WT eA, TSH3 #### [address] Eosinophils/100 WBC (Bld) 0.2 % Normal . [facility] Comment on above: Performed By: #### P TT, HCGQNT, CBC, PT, T4F, A1C WTH eA, TSH3 #### [address] Erythrocyte distribution width (RBC) [Ratio] 15.2 % Normal 11.9-15.3 [facility] Comment on above: Performed By: #### P TT, HCGQNT, CBC, PT, T4F, A1C WTH eA, TSH3 #### [address] Hematocrit (Bld) [Volume fraction] 36.9 % Normal 34.0-46.4 [facility] Comment on above: Performed By: #### P TT, HCGQNT, CBC, PT, T4F, A1C WTH eA, TSH3 #### [address] Hemoglobin (Bld) [Mass/Vol] 11.7 g/dL Low 11.8-15.4 [facility] Comment on above: Performed By: #### P TT, HCGQNT, CBC, PT, T4F, A1C WTH eA, TSH3 #### [address] Lymphocytes (Bld) [#/Vol] 2.1 10*3/uL Normal 1.00-4.8 [facility] Comment on above: Performed By: #### P TT, HCGQNT, CBC, PT, T4F, A1C WTH eA, TSH3 #### [address] Lymphocytes/100 WBC (Bld) 26.9 % Normal . [facility] Comment on above: Performed By: #### P TT, HCGQNT, CBC, PT, T4F, A1C WTH eA, TSH3 #### [address] MCH (RBC) [Entitic mass] 24.4 pg Low 24.7-34.3 [facility] Comment on above: Performed By: #### P TT, HCGQNT, CBC, PT, T4F, A1C WTH eA, TSH3 #### [address] MCV (RBC) [Entitic vol] 76.5 fL Low 80-100 [facility] Comment on above: Performed By: #### P TT, HCGQNT, CBC, PT, T4F, A1C WTH eA, TSH3 #### [address] Mean Corpuscular HGB Conc 31.8 g/dL Low 32.0-35.0 [facility] Comment on above: Performed By: #### P TT, HCGQNT, CBC, PT, T4F, A1C WTH eA, TSH3 #### [address] Monocytes (Bld) [#/Vol] 0.7 10*3/uL Normal 0.0-0.8 [facility] Comment on above: Performed By: #### P TT, HCGQNT, CBC, PT, T4F, A1C WTH eA, TSH3 #### [address] Monocytes/100 WBC (Bld) 9.3 % Normal . [facility] Comment on above: Performed By: #### P TT, HCGQNT, CBC, PT, T4F, A1C WTH eA, TSH3 #### [address] Neutrophils (Bld) [#/Vol] 5.0 10*3/uL Normal 1.8-7.7 [facility] Comment on above: Performed By: #### P TT, HCGQNT, CBC, PT, T4F, A1C WTH eA, TSH3 #### [address] Neutrophils/100 WBC (Bld) 63.1 % Normal . [facility] Comment on above: Performed By: #### P TT, HCGQNT, CBC, PT, T4F, A1C WTH eA, TSH3 #### [address] NRBC% 0.0 /100{WBC} Normal 0-0.5 [facility] Comment on above: Performed By: #### P TT, HCGQNT, CBC, PT, T4F, A1C WTH eA, TSH3 #### [address] Platelet mean volume (Bld) [Entitic vol] 11.1 fL High 6.3-10.7 [facility] Comment on above: Performed By: #### P TT, HCGQNT, CBC, PT, T4F, A1C WTH eA, TSH3 #### [address] Platelets (Bld) [#/Vol] 187 10*3/uL Normal 150-450 [facility] Comment on above: Performed By: #### P TT, HCGQNT, CBC, PT, T4F, A1C WTH eA, TSH3 #### [address] RBC (Bld) [#/Vol] 4.82 10*6/uL Normal 3.60-5.00 [facility] Comment on above: Performed By: #### P TT, HCGQNT, CBC, PT, T4F, A1C WTH eA, TSH3 #### [address] WBC (Bld) [#/Vol] 7.9 10*3/uL Normal 3.8-11.6 [facility] Comment on above: Performed By: #### P TT, HCGQNT, CBC, PT, T4F, A1C WTH eA, TSH3 #### [place] [address] [place] Eosinophils Auto (Bld) [#/Vo l]Ordered By: Clarke Hu on 02-24-2024 Eosinophils (Bld) [#/Vol] 0.0 10*3/uL 0.0-0.45 [facility] Eosinophils/100 WBC Auto (Bl d)Ordered By: Clarke Hu on 02-24-2024 Eosinophils/100 WBC (Bld) 0.2 % . [facility] Erythrocyte distribution wid th Auto (RBC) [Ratio]Ordered By: Clarke Hu on 02-24-2024 Erythrocyte distribution width (RBC) [Ratio] 15.2 % 11.9-15.3 [facility] Free T4 (Free Thyroxine)on 0 02-24-2024 Free T4 [Mass/Vol] 0.82 ng/dL Normal 0.61-1.12 [facility] Comment on above: Performed By: #### P TT, HCGQNT, CBC, PT, T4F, [facility] #### [address] Glucose mean value [Mass/vol ume] in Blood Estimated from glycated hemoglobinOrdered By: Clarke Hu on 02-24-2024 Average glucose Estimated from glycated hemoglobin (Bld) [Mass/Vol] 100 mg/dL [facility] HCG,Quantitativeon HCG,Quantitative 791.11 m[iU]/mL Normal [facility] Comment on above: Result Comment: Appr oximate Approximate hCG Gestational Age Range (mIU/ml) (weeks) 0.2-1 5-50 1-2 50-500 2-3 100-5,000 3-4 500-10,000 4-5 1,000-50,000 5-6 10,000-100,000 6-8 15,000-200,000 8-12 10,000-100,000 PERFORMED BY: [address] [place] [address] PATHOLOGIST SENIOR JAVA SOFTWARE ENGINEER ALEN PRICE M.D. Performed By: #### P TT, HCGQNT, CBC, PT, T4F, A1C [facility], [facility]3 #### [address] Hematocrit Auto (Bld) [Volum e fraction]Ordered By: Clarke Hu on 02-24-2024 Hematocrit (Bld) [Volume fraction] 36.9 % 34.0-46.4 [facility] Hemoglobin A1c percentageOrd ered By: Clarke Hu on 02-24-2024 HbA1c (Bld) [Mass fraction] 5.1 % 4.3-5.6 [facility] Comment on above: Increased risk for d iabetes: 5.7 - 6.4diabetes: >6.4glycemic control for adults with diabetes: <7.0 Hemoglobin [Mass/volume] in BloodOrdered By: Clarke Hu on 02-24-2024 Hemoglobin (Bld) [Mass/Vol] 11.7 g/dL 11.8-15.4 [facility] INR in Platelet poor plasma by Coagulation assayOrdered By: Clarke Hu on 02-24-2024 INR Coag (PPP) [Relative time] 1.1 {INR} [facility] Comment on above: INR Therapeutic Rang [...] RBC Auto (Bld) [#/Vol] 7.9 10*3/uL 3.8-11.6 [facility] Lymphocytes Auto (Bld) [#/Vo l]Ordered By: Clarke Hu on 02-24-2024 Lymphocytes (Bld) [#/Vol] 2.1 10*3/uL 1.00-4.8 [facility] Lymphocytes/100 WBC Auto (Bl d)Ordered By: Clarke Hu on 02-24-2024 Lymphocytes/100 WBC (Bld) 26.9 % . [facility] MCH Auto (RBC) [Entitic mass ]Ordered By: Clarke Hu on 02-24-2024 MCH (RBC) [Entitic mass] 24.4 pg 24.7-34.3 [facility] MCHC Auto (RBC) [Mass/Vol]Or dered By: Clarke Hu on 02-24-2024 MCHC (RBC) [Mass/Vol] 31.8 g/dL 32.0-35.0 [facility] MCV Auto (RBC) [Entitic vol] Ordered By: Clarke Hu on 02-24-2024 MCV (RBC) [Entitic vol] 76.5 fL 80-100 [facility] Monocytes Auto (Bld) [#/Vol] Ordered By: Clarke Hu on 02-24-2024 Monocytes (Bld) [#/Vol] 0.7 10*3/uL 0.0-0.8 [facility] Monocytes/100 WBC Auto (Bld) Ordered By: Clarke Hu on 02-24-2024 Monocytes/100 WBC (Bld) 9.3 % . [facility] Neutrophils Auto (Bld) [#/Vo l]Ordered By: Clarke Hu on 02-24-2024 Neutrophils (Bld) [#/Vol] 5.0 10*3/uL 1.8-7.7 [facility] Neutrophils/100 WBC Auto (Bl d)Ordered By: Clarke Hu on 02-24-2024 Neutrophils/100 WBC (Bld) 63.1 % . [facility] Nucleated erythrocytes [Pres ence] in Blood by Automated countOrdered By: Clarke Hu on 02-24-2024 Nucleated RBC Auto Ql (Bld) 0.0 /100{WBC} 0-0.5 [facility] Partial Thromboplastin Timeo n 02-24-2024 aPTT Coag (Bld) [Time] 33.7 s Normal 25.1-36.5 [facility] Comment on above: Result Comment: A he matocrit value greater than 55% may lead to inaccurate results in coagulation testing. Patients having hematocrit values >55% require a special collection tube for coagulation studies. Please contact the laboratory at [phone] for redraw instructions. PERFORMED BY: [facility] [address] [place] [address] PATHOLOGIST SENIOR JAVA SOFTWARE ENGINEER ALEN PRICE M.D. Performed By: #### P TT, HCGQNT, CBC, PT, T4F, A1C WTH eA, TSH3 #### [facility] [address] [place] [address] [facility] Platelet mean volume Auto (B ld) [Entitic vol]Ordered By: Clarke Hu on 02-24-2024 Platelet mean volume (Bld) [Entitic vol] 11.1 fL 6.3-10.7 [facility] Platelets Auto (Bld) [#/Vol] Ordered By: Clarke Hu on 02-24-2024 Platelets (Bld) [#/Vol] 187 10*3/uL 150-450 [facility] Prothrombin Time INRon 02-23 INR Coag (PPP) [Relative time] 1.1 {INR} Normal [facility] Comment on above: Result Comment: [...] P TT, HCGQNT, CBC, PT, T4F, A1C [facility], TSH3 #### [facility] [address] [place] [id number] [facility] PT Coag (PPP) [Time] 12.2 s Normal 9.0-12.9 [facility] Comment on above: Result Comment: A he matocrit value greater than 55% may lead to inaccurate results in coagulation testing. Patients having hematocrit values >55% require a special collection tube for coagulation studies. Please contact the laboratory at [phone] for redraw instructions. Performed By: #### P TT, HCGQNT, CBC, PT, T4F, A1C [facility], TSH3 #### [facility] [address] [place] [id number] [facility] Prothrombin time (PT)Ordered By: Clarke Hu on 02-24-2024 PT Coag (PPP) [Time] 12.2 s 9.0-12.9 [facility] Comment on above: A hematocrit value g reater than 55% may lead to inaccurate results in coagulation testing. Patients having hematocrit values >55% require a special collection tube for coagulation studies. Please contact the laboratory at [phone] for redraw instructions. RBC Auto (Bld) [#/Vol]Ordere d By: Clarke Hu on 02-24-2024 RBC (Bld) [#/Vol] 4.82 10*6/uL 3.60-5.00 [facility] Thyroid Stimulating Hormoneo n 02-24-2024 TSH Qn 0.96 m[IU]/L Normal 0.45-5.33 [facility] Comment on above: Performed By: #### P TT, HCGQNT, CBC, PT, T4F, A1C WTH eA, TSH3 #### [facility] [address] Thyrotropin [Units/volume] i n Serum or PlasmaOrdered By: Clarke Hu on 02-24-2024 TSH Qn 0.96 m[IU]/L 0.45-5.33 [facility] Thyroxine (T4) free [Mass/vo lume] in Serum or PlasmaOrdered By: Clarke Hu on 02-24-2024 Free T4 [Mass/Vol] 0.82 ng/dL 0.61-1.12 [facility] WBC Auto (Bld) [#/Vol]Ordere d By: Clarke Hu on 02-24-2024 WBC (Bld) [#/Vol] 7.9 10*3/uL 3.8-11.6 [facility] CNPNon 02-18-2024 [facility] ----- SMOOTH MARTINEZ ([id number]) 1985 F Date Time Provider Department 02/18/24 MIRNA BAXTER During your visit today, we recorded the following information about you: Diana Garcia 02/18/2024 8:55 AM Signed Tex Call Name of caller : IrisDonte [facility] Relationship to patient: Self Return call phone number : [phone] Reason for call : Would like a [...] Date Reviewed: 01/19/2024 Reviewed by: Kaitlyn Forbes, tube trailer filler - Fully Assessed Reason for Visit: Patient [...] (FLONASE) 50 mcg/actuation nasal spray Use 1 [place] in each nostril once daily. Problem List [...] Encounter Status:Closed by MIRNA BAXTER on 02/18/24 [facility] Telephone (NEMLuís) ----- SMOOTH MARTINEZ ([id number]) 1985 F Date Time Provider Department 02/03/24 MIRNA BAXTERLuís During your visit today, we recorded the following information about you: Clarice Zepeda HUC 02/03/2024 1:33 PM Signed Tex Call Name of caller : Iris Edge Relationship to patient: [facility] Return call phone number : [phone] Reason for call : Other : Brief description of concern : Has follow up questions Mirna Baxter LSW 02/04/2024 9:37 AM Signed Returned CM Iris's call. Iris stated pt was approved for a [facility] aide one day a week for 45 min to assist with additonal care needs. Iris is requesting an order from the doctor to start care. I will e-mail Iris the order when completed. DEZ Archer, [facility] Work Allergies As of Date: 02/03/2024 Noted [...] Date Reviewed: 01/19/2024 Reviewed by: Kaitlyn Forbes, tube trailer filler - Fully Assessed Reason for Visit: Patient Question [2127] Prescriptions as of 02/04/2024 - Norethindrone, Contraceptive, [...] (FLONASE) 50 mcg/actuation nasal spray Use 1 [place] in each nostril once daily. Problem List [...] Status:Closed by MIRNA BAXTER on 02/04/24 Normal [facility] MR Thoracic spine WO and W c ontrast Joe 01-19-2024 [facility] MRI THORACIC SPINE WO/W IVCO Non 01-19-2024 MRI THORACIC SPINE WO/W IVCON * * *Final Report* * * DATE OF EXAM: Jan 19 2024 3:15PM [facility] 0326 - MRI THORACIC SPINE WO/W IVCON [...] identified to suggest active or progressive disease. Obstetrics Specialist: PSCB Transcribe Date/Time: Jan 19 2024 3:31P Dictated by : LOVE WHARTON MD This examination was interpreted and the report reviewed and electronically signed by: LOVE WHARTON MD on Jan 19 2024 3:43PM EST [id number] Normal [facility] CNPLilli 01-05-2024 CNPN Telephone (NEMN) ----- SMOOTH MARTINEZ F ([id number]) 1985 F Date Time Provider Department 01/05/24 MIRNA BAXTERLuís During your visit today, we [...] Date Reviewed: 12/25/2023 Reviewed by: Tor Hernandez APRN.NATIONAL SALES ASSOCIATE - Fully Assessed Reason for Visit: Appointment [...] (FLONASE) 50 mcg/actuation nasal spray Use 1 [place] in each nostril once daily. Problem List [...] Encounter Status:Closed by NADINE JAMES on 01/05/24 [facility] CNOVon 12-25-2023 CNOV Office Visit (NEMSLR ) ----- SMOOTH MARTINEZ ([id number]) 1985 F Date Time Provider Department 12/25/23 11:00 AM TOR HERNANDEZ NEMSMITUL During your visit today, we recorded the following information about you: Pulse Blood pressure Weight Last Period 87/minute 95/67 56.8 kg 12/21/23 Tor Hernandez APRN.NATIONAL SALES ASSOCIATE 12/25/2023 12:09 PM [facility] FOLLOWUP/ESTABLISHED PATIENT VISIT PRINCIPAL NEUROLOGIC DIAGNOSIS: Multiple Sclerosis DISEASE SUMMARY Date of onset: 03/2007 Date of diagnosis of MS: 03/2007 Disease course at onset: Relapsing-Remitting Current disease course: Progressive without relapses Previous disease therapies: - Betaseron 6482-5806 - Copaxone 4800-7419 - Tysabri 2009-Summer 2019 (stopped due to planned ) - Copaxone 3589-7971 (during ) Current disease therapy: Ocrevus (since 02/28/21, most recent 09/25/23) Most recent MRI brain: 01/02/23 (stable) Most recent MRI cervical spine: 01/02/23 (stable) Most recent MRI thoracic spine: 07/23/2022 CSF: NA JCV: 02/14/2021 0.28, stratify negative Brief Disease History: - 2006 lower extremity numbness evolving over 3 weeks following occipital relase - 3637-2270 recurrent OS ON - 8541-7563 several relapses including L numbness, weakness, constipation, urinary urgency - 2019 R weakness and numbness needing a wheelchair, hospitalized at [facility] (off Tysabri x3 months due to planning [...] 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, ot, 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, sw, 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, is unable [...] Flowsheet Row Office Visit from 07/23/2023 in [facility] Office Visit from 01/17/2023 in [facility] Appointment from 01/15/2023 in [facility] Upper Extremity Domain T Score 28.29 31.35 [...] Flowsheet Row Office Visit from 07/23/2023 in [facility] Office Visit from 01/17/2023 in [facility] Appointment from 01/15/2023 in [facility] Sleep Domain T Score 69.2 68.89 61 [...] Edema of lower extremity (04/17/2021), Multiple sclerosis ([facility]), Seizure ([facility]), and Thyroid disease. She has no past medical history of Asthma, Blood dyscrasia, Breast disorder, Chlamydia, Chronic kidney disease, Complication of anesthesia, Coronary artery disease, Diabetes ([facility]), Diabetes, gestational, Gonorrhea, Herpes simplex virus (HSV) infection, History of pre-eclampsia in prior , currently , HIV infection ([facility]), Hypertension, Infertility, female, L (more content not included)... [facility] C[facility]N Telephone (HCSIND) ----- SMOOTH MARTINEZ ([id number]) 1985 F Date Time Provider Department 12/25/23 TIKI ELLIOTTIND During your visit today, we recorded the following information about you: Tiki Elliott 12/25/2023 2:08 PM Addendum Spoke with Roxy from [facility] and accepted the patient for Home Care. Thank you for the referral of your patient to [facility]. At this time, we are unable to accommodate your patient's needs in a safe and timely fashion. In order to help your patient receive quality home care, we will assist in finding alternate staffing. I have forwarded the referral to [facility], and it is pending. I will notify you when we have an accepting agency. Thank you. Thank you for the referral of your patient to [facility]. At this time, we are unable to accommodate your patient's needs in a safe and timely fashion. In order to help your patient receive quality home care, we will assist in finding alternate staffing. I have forwarded the referral to [facility], and it is declined. I will notify you when we have an accepting agency. Thank you. Thank you for the referral of your patient to [facility]. At this time, we are unable to accommodate your patient's needs in a safe and timely fashion. In order to help your patient receive quality home care, we will assist in finding alternate staffing. I have forwarded the referral to [facility], and it is declined. I [...] Date Reviewed: 12/25/2023 Reviewed by: Tor Hernandez APRN.NATIONAL SALES ASSOCIATE - Fully Assessed Reason for Visit: Home [...] (FLONASE) 50 mcg/actuation nasal spray Use 1 [place] in each nostril once daily. Problem List As Of Date 12/25/2023 Noted Resolved Multiple sclerosis (HCC) [G35] 11/15/2019 Chronic insomnia [F51.04] 01/04/2020 AMA (advanced maternal age) primigravida 35+, s*2020 01/11/2021 History of loop electrosurgical excision proced*2020 01/11/2021 Poor growth affecting (more content not included)... Normal [facility] HCG ( test) Ql (U)o n 12-23-2023 Interpretation and review of laboratory results Normal [facility] Preg Test, Ur Negative [facility] - Microbiology an d Antimicrobial susceptibilityon 12-23-2023 SARS-CoV-2 (COVID-19) RNA DEIRDRE+probe Ql (Unsp spec) Negative [facility] No Panel Informationon 12-23 FLU A Negative [facility] FLU B Negative [facility] Interpretation and review of laboratory results Normal [facility] Toño 11-28-2023 L Specimen: [id number] Received: 11/28/23 Status: ALLISON See Num: [id number] Spec Type: Surgical Subm Dr: Clarke Hu Tissues: A Endometrium - Curettings (EMC) Procedures: HE/2, Gross/Micro L4 Age/ Patient Sex Location Account Attending Physician MartinezSmooth grewal 38/F LABELL [id number] Clarke Hu SPEC NUM: [id number] RECD: 11/28/23 STATUS: ALLISON SEE NUM: [id number] ALLAN: 11/28/[address]: Clarke Hu ENTERED: [...] in one cassette labeled A1. CPT Codes 49942 Specimen: [id number] Received: 11/28/23 Status: ALLISON See Num: [id number] Spec Type: Surgical Subm Dr: Clarke Hu Tissues: A Endometrium - Curettings (EMC) Procedures: HIRA/Jamila Maravilla/Kelly L4 Patient: Smooth Martinez [id number] (Continued) Signed (signature on file) Edu Watkins MD 12/01/23 2159 Normal [facility] CNSWon 10-13-2023 [facility] Social Work (HEMASA) ----- PRISCILA MARTINEZANA Pérez ([id number]) 1985 F Date Time Provider Department 10/13/23 ALEXANDRA HOGAN During your visit today, we recorded the following information about you: Alexandra Hogan LSW 10/13/2023 10:52 AM Signed Patient appears on the First Time Treatment List for a non-oncology treatment. No psychosocial assessment is indicated. GERRY Ambrocio-S Allergies As of Date: 10/13/2023 Noted Allergy [...] (FLONASE) 50 mcg/actuation nasal spray Use 1 [place] in each nostril once daily. Problem List [...] Status:Closed by ALEXANDRA HOGAN on 10/13/23 Normal [facility] CBC W Auto Differential pane l (Bld)on 09-25-2023 Basophils (Bld) [#/Vol] 0.03 10*3/uL <0.11 k/uL [facility] Basophils/100 WBC (Bld) 0.8 % [facility] Differential cell count method Nom (Bld) Auto [facility] Eosinophils (Bld) [#/Vol] 0.07 10*3/uL <0.46 k/uL [facility] Eosinophils/100 WBC (Bld) 1.8 % [facility] Erythrocyte distribution width (RBC) [Ratio] 17.1 % High 11.5 - 15.0 % [facility] Hematocrit (Bld) [Volume fraction] 41.0 % 36.0 - 46.0 % [facility] Hemoglobin (Bld) [Mass/Vol] 12.5 g/dL 11.5 - 15.5 g/dL [facility] Immature granulocytes (Bld) [#/Vol] <0.10 k/uL [facility] Immature granulocytes/100 WBC (Bld) 0.0 % [facility] Lymphocytes (Bld) [#/Vol] 2.63 10*3/uL 1.00 - 4.00 k/uL [facility] Lymphocytes/100 WBC (Bld) 66.4 % [facility] MCH (RBC) [Entitic mass] 23.7 pg Low 26.0 - 34.0 pg [facility] MCHC (RBC) [Mass/Vol] 30.5 g/dL 30.5 - 36.0 g/dL [facility] MCV (RBC) [Entitic vol] 77.7 fL Low 80.0 - 100.0 fL [facility] Monocytes (Bld) [#/Vol] 0.51 10*3/uL <0.87 k/uL [facility] Monocytes/100 WBC (Bld) 12.9 % [facility] Neutrophils (Bld) [#/Vol] 0.72 10*3/uL Low 1.45 - 7.50 k/uL [facility] Neutrophils/100 WBC (Bld) 18.1 % [facility] Nucleated RBC (Bld) [#/Vol] <0.01 k/uL [facility] Nucleated RBC/100 WBC (Bld) [Ratio] 0.0 /100 WBC [facility] Platelet mean volume (Bld) [Entitic vol] [facility] Platelets (Bld) [#/Vol] 179 10*3/uL 150 - 400 k/uL [facility] RBC (Bld) [#/Vol] 5.28 10*6/uL High 3.90 - 5.2 0 m/uL [facility] WBC (Bld) [#/Vol] 3.96 10*3/uL 3.70 - 11. 00 k/uL [facility] Basophils (Bld) [#/Vol] 0.03 10*3/uL Normal <0.11 [facility] Comment on above: Order Comment: Speci men Type: BLOOD SPECIMENOrdering Facility: [facility] Address: [address] [place] [address] Performed By: #### 5 7021-8 ####[facility] LABCLIA [id number] [place] [address] Basophils/100 WBC (Bld) 0.8 % Normal [facility] Comment on above: Order Comment: Speci men Type: BLOOD SPECIMENOrdering Facility: [facility] Address: [address] [place] [address] Performed By: #### 5 7021-8 ####[facility] LABCLIA [id number] [place] [address] Differential cell count method Nom (Bld) Auto Normal [facility] Comment on above: Order Comment: Speci men Type: BLOOD SPECIMENOrdering Facility: [facility] Address: [address] [place] [address] Performed By: #### 5 7021-8 ####[facility] LABCLIA [id number] [place] [address] Eosinophils (Bld) [#/Vol] 0.07 10*3/uL Normal <0.46 [facility] Comment on above: Order Comment: Speci men Type: BLOOD SPECIMENOrdering Facility: [facility] Address: [address] [place] [address] Performed By: #### 5 7021-8 ####[facility] LABCLIA [id number] [place] [address] Eosinophils/100 WBC (Bld) 1.8 % Normal [facility] Comment on above: Order Comment: Speci men Type: BLOOD SPECIMENOrdering Facility: [facility] Address: [address] [place] [address] Performed By: #### 5 7021-8 ####[facility] LABCLIA [id number] [place] [address] Erythrocyte distribution width (RBC) [Ratio] 17.1 % High 11.5-15.0 [facility] Comment on above: Order Comment: Speci men Type: BLOOD SPECIMENOrdering Facility: [facility] Address: [address] [place] [address] Performed By: #### 5 7021-8 ####[facility] LABCLIA [id number] [place] [address] Hematocrit (Bld) [Volume fraction] 41.0 % Normal 36.0-46.0 [facility] Comment on above: Order Comment: Speci men Type: BLOOD SPECIMENOrdering Facility: [facility] Address: [address] [place] [address] Performed By: #### 5 7021-8 ####[facility] LABCLIA [id number] [place] [address] Hemoglobin (Bld) [Mass/Vol] 12.5 g/dL Normal 11.5-15.5 [facility] Comment on above: Order Comment: Speci men Type: BLOOD SPECIMENOrdering Facility: [facility] Address: [address] [place] [address] Performed By: #### 5 7021-8 ####[facility] LABCLIA [id number] [place] [address] Immature granulocytes (Bld) [#/Vol] 10*3/uL Normal <0.10 [facility] Comment on above: Order Comment: Speci men Type: BLOOD SPECIMENOrdering Facility: [facility] Address: [address] [place] [address] Performed By: #### 5 7021-8 ####[facility] LABCLIA [id number] [place] [address] Immature granulocytes/100 WBC (Bld) 0.0 % Normal [facility] Comment on above: Order Comment: Speci men Type: BLOOD SPECIMENOrdering Facility: [facility] Address: [address] [place] [address] Performed By: #### 5 7021-8 ####[facility] LABCLIA [id number] [place] [address] Lymphocytes (Bld) [#/Vol] 2.63 10*3/uL Normal 1.00-4.00 [facility] Comment on above: Order Comment: Speci men Type: BLOOD SPECIMENOrdering Facility: [facility] Address: [address] [place] [address] Performed By: #### 5 7021-8 ####[facility] LABCLIA [id number] [place] [address] Lymphocytes/100 WBC (Bld) 66.4 % Normal [facility] Comment on above: Order Comment: Speci men Type: BLOOD SPECIMENOrdering Facility: [facility] Address: [address] [place] [address] Performed By: #### 5 7021-8 ####[facility] LABCLIA [id number] [place] [address] MCH (RBC) [Entitic mass] 23.7 pg Low 26.0-34.0 [facility] Comment on above: Order Comment: Speci men Type: BLOOD SPECIMENOrdering Facility: [facility] Address: [address] [place] [address] Performed By: #### 5 7021-8 ####[facility] LABCLIA [id number] [place] [address] MCHC (RBC) [Mass/Vol] 30.5 g/dL Normal 30.5-36.0 [facility] Comment on above: Order Comment: Speci men Type: BLOOD SPECIMENOrdering Facility: [facility] Address: [address] [place] [address] Performed By: #### 5 7021-8 ####[facility] LABCLIA [id number] [place] [address] MCV (RBC) [Entitic vol] 77.7 fL Low 80.0-100.0 [facility] Comment on above: Order Comment: Speci men Type: BLOOD SPECIMENOrdering Facility: [facility] [place] Address: [address] [place] [address] Performed By: #### 5 7021-8 ####[facility] LABCLIA [id number] [place] [address] Monocytes (Bld) [#/Vol] 0.51 10*3/uL Normal <0.87 [facility] Comment on above: Order Comment: Speci men Type: BLOOD SPECIMENOrdering Facility: [facility] [place] Address: [address] [place] [address] Performed By: #### 5 7021-8 ####[facility] LABCLIA [id number] [place] [address] Monocytes/100 WBC (Bld) 12.9 % Normal [facility] Comment on above: Order Comment: Speci men Type: BLOOD SPECIMENOrdering Facility: [facility] Address: [address] [place] [address] Performed By: #### 5 7021-8 ####[facility] LABCLIA [id number] [place] [address] Neutrophils (Bld) [#/Vol] 0.72 10*3/uL Low 1.45-7.50 [facility] Comment on above: Order Comment: Speci men Type: BLOOD SPECIMENOrdering Facility: [facility] Address: [address] [place] [address] Performed By: #### 5 7021-8 ####[facility] LABIA [id number] [place] [address] Neutrophils/100 WBC (Bld) 18.1 % Normal [facility] Comment on above: Order Comment: Speci men Type: BLOOD SPECIMENOrdering Facility: [facility] Address: [address] [place] [address] Performed By: #### 5 7021-8 ####[facility] LABCLIA [id number] [place] [address] Nucleated RBC (Bld) [#/Vol] 10*3/uL Normal <0.01 [facility] Comment on above: Order Comment: Speci men Type: BLOOD SPECIMENOrdering Facility: [facility] Address: [address] [place] [address] Performed By: #### 5 7021-8 ####[facility] LABCLIA [id number] [place] [address] Nucleated RBC/100 WBC (Bld) [Ratio] 0.0 /100 WBC Normal [facility] Comment on above: Order Comment: Speci men Type: BLOOD SPECIMENOrdering Facility: [facility] Address: [address] [place] [address] Performed By: #### 5 7021-8 ####[facility] LABCLIA [id number] [place] [address] Platelet mean volume (Bld) [Entitic vol] Normal [facility] Comment on above: Order Comment: Speci men Type: BLOOD SPECIMENOrdering Facility: [facility] Address: [address] [place] [address] Result Comment: Unab le to Report. Performed By: #### 5 7021-8 ####[facility] LABCLIA [id number] [place] [address] Platelets (Bld) [#/Vol] 179 10*3/uL Normal 150-400 [facility] Comment on above: Order Comment: Speci men Type: BLOOD SPECIMENOrdering Facility: [facility] Address: [address] [place] [address] Result Comment: Resu lts checked and verified.No clot detected. Performed By: #### 5 7021-8 ####[facility] LABCLIA [id number] [place] [address] RBC (Bld) [#/Vol] 5.28 10*6/uL High 3.90-5.20 [facility] Comment on above: Order Comment: Speci men Type: BLOOD SPECIMENOrdering Facility: [facility] [place] Address: [address] [place] [address] Performed By: #### 5 7021-8 ####[facility] LABCLIA [id number] [place] [address] WBC (Bld) [#/Vol] 3.96 10*3/uL Normal 3.70-11.00 [facility] Comment on above: Order Comment: Speci men Type: BLOOD SPECIMENOrdering Facility: [facility] Address: [address] [place] [address] Performed By: #### 5 7021-8 ####[facility] LABCLIA [id number] [place] [address] CD19 ABSOLUTE COUNTon 2022 CD3-CD19+ cells (Bld) [#/Vol] 0 cells/uL Low 75-660 [facility] Comment on above: Order Comment: Speci men Type: BLOOD SPECIMENOrdering Facility: [facility] Address: [address] [place] [address] Performed By: #### A BS19 ####[facility] LABCLIA [id number] [place] [address] [place] CD3-CD19+ cells/100 cells (Bld) 0 % Low 5-22 [facility] Comment on above: Order Comment: Speci men Type: BLOOD SPECIMENOrdering Facility: [facility] Address: [address] [place] [address] Performed By: #### A BS19 ####[facility] LABCLIA [id number] [place] [address] [place] Lymphocytes/100 WBC FC (Bld) Normal [facility] Comment on above: Order Comment: Speci men Type: BLOOD SPECIMENOrdering Facility: [facility] Address: [address] [place] [address] Performed By: #### A BS19 ####[facility] LABCLIA [id number] [place] [address] [place] Christiano 09-25-2023 CNPN Telephone (HEMTSA) ----- SMOOTH MARTINEZ ([id number]) 1985 F Date Time Provider Department 09/25/23 KATHERYN ESPINO During your visit today, we recorded the following information about you: Katheryn Espino RN 09/25/2023 10:40 AM Signed Smooth is in our [place] clinic for her Ocrevus today. I just [...] [D70.2] Order(s):CBC + DIFF [SQCBCDIF] Order #: [id number] FUTURE Prescriptions as of 09/29/2023 - metroNIDAZOLE [...] (FLONASE) 50 mcg/actuation nasal spray Use 1 [place] in each nostril once daily. Problem List [...] Status:Closed by KATHERYN ESPINO on 09/29/23 Normal [facility] Comprehensive metabolic 2000 panelon 09-25-2023 Albumin [Mass/Vol] 4.5 g/dL 3.9 - 4.9 g/dL [facility] ALP [Catalytic activity/Vol] 58 U/L 34 - 123 U/L [facility] ALT [Catalytic activity/Vol] 11 U/L 7 - 38 U/L [facility] Anion gap [Moles/Vol] 9 mmol/L 9 - 18 mmol/L [facility] AST [Catalytic activity/Vol] 17 U/L 13 - 35 U/L [facility] Bilirubin [Mass/Vol] 0.5 mg/dL 0.2 - 1 .3 mg/dL [facility] [facility] Calcium [Mass/Vol] 9.5 mg/dL 8.5 - 10. 2 mg/dL [facility] Chloride [Moles/Vol] 106 mmol/L High 97 - 10 5 mmol/L [facility] CO2 [Moles/Vol] 26 mmol/L 22 - 30 mmol/L [facility] Creatinine [Mass/Vol] 0.95 mg/dL 0.58 - 0.96 mg/dL [facility] Estimated Glomerular Filtration Rate 79 mL/min/1.73m >=60 mL/min/1.73m [facility] Glucose [Mass/Vol] 89 mg/dL 74 - 99 mg/dL [facility] Potassium [Moles/Vol] 3.6 mmol/L Low 3.7 - 5.1 mmol/L [facility] Protein [Mass/Vol] 7.4 g/dL 6.3 - 8.0 g/dL [facility] Sodium [Moles/Vol] 141 mmol/L 136 - 144 mmol/L [facility] Urea nitrogen [Mass/Vol] 14 mg/dL 7 - 21 mg/dL [facility] Albumin [Mass/Vol] 4.5 g/dL Normal 3.9-4.9 [facility] Comment on above: Order Comment: Speci men Type: BLOOD SPECIMENOrdering Facility: [facility] [place] Address: [address] [place] [address] Performed By: #### 2 4323-8 ####[facility] LABCLIA [id number] [place] [address] ALP [Catalytic activity/Vol] 58 U/L Normal 34-123 [facility] Comment on above: Order Comment: Speci men Type: BLOOD SPECIMENOrdering Facility: [facility] [place] Address: [address] [place] [address] Performed By: #### 2 4323-8 ####[facility] LABCLIA [id number] [place] [address] ALT [Catalytic activity/Vol] 11 U/L Normal 7-38 [facility] Comment on above: Order Comment: Speci men Type: BLOOD SPECIMENOrdering Facility: [facility] [place] Address: [address] [place] [address] Performed By: #### 2 4323-8 ####[facility] LABCLIA [id number] [place] [address] Anion gap [Moles/Vol] 9 mmol/L Normal 9-18 [facility] Comment on above: Order Comment: Speci men Type: BLOOD SPECIMENOrdering Facility: [facility] [place] Address: [address] [place] [address] Performed By: #### 2 4323-8 ####[facility] LABCLIA [id number] [place] [address] AST [Catalytic activity/Vol] 17 U/L Normal 13-35 [facility] Comment on above: Order Comment: Speci men Type: BLOOD SPECIMENOrdering Facility: [facility] [place] Address: [address] [place] [address] Performed By: #### 2 4323-8 ####[facility] LABCLIA [id number] [place] [address] Bilirubin [Mass/Vol] 0.5 mg/dL Normal 0.2-1.3 [facility] Comment on above: Order Comment: Speci men Type: BLOOD SPECIMENOrdering Facility: [facility] [place] Address: [address] [place] [address] Performed By: #### 2 4323-8 ####[facility] LABCLIA [id number] [place] [address] Calcium [Mass/Vol] 9.5 mg/dL Normal 8.5-10.2 [facility] Comment on above: Order Comment: Speci men Type: BLOOD SPECIMENOrdering Facility: [facility] [place] Address: [address] [place] [address] Performed By: #### 2 4323-8 ####[facility] LABCLIA [id number] [place] [address] Chloride [Moles/Vol] 106 mmol/L High 97-105 [facility] Comment on above: Order Comment: Speci men Type: BLOOD SPECIMENOrdering Facility: [facility] [place] Address: [address] [place] [address] Performed By: #### 2 4323-8 ####[facility] LABCLIA [id number] [place] [address] CO2 [Moles/Vol] 26 mmol/L Normal 22-30 [facility] Comment on above: Order Comment: Speci men Type: BLOOD SPECIMENOrdering Facility: [facility] [place] Address: [address] [place] [id number] Performed By: #### 2 4323-8 ####[facility] LABCLIA [id number] [place] [address] Creatinine [Mass/Vol] 0.95 mg/dL Normal 0.58-0.96 [facility] Comment on above: Order Comment: Speci men Type: BLOOD SPECIMENOrdering Facility: [facility] [place] Address: [address] [place] [address] Performed By: #### 2 4323-8 ####[facility] LABCLIA [id number] [place] [address] Creatinine and Glomerular filtration rate.predicted panel (S/P/Bld) 79 mL/min/1.73m??? Normal >=60 [facility] Comment on above: Order Comment: Speci men Type: BLOOD SPECIMENOrdering Facility: [facility] [place] Address: [address] [place] [address] Result Comment: Priscila mated Glomerular Filtration Rate [...] actual GFR. Performed By: #### 2 4323-8 ####[facility] LABCLIA [id number] [place] [address] Glucose [Mass/Vol] 89 mg/dL Normal 74-99 [facility] Comment on above: Order Comment: Speci men Type: BLOOD SPECIMENOrdering Facility: [facility] [place] Address: [address] [place] [address] Result Comment: The [place] [employer] (ADA) provides guidance for cutoff [...] Standards of Medical Care in Diabetes 2016, [place] [employer]. Diabetes Care. 2016.39(Suppl 1). Performed By: #### 2 4323-8 ####[facility] LABCLIA [id number] [place] [address] Potassium [Moles/Vol] 3.6 mmol/L Low 3.7-5.1 [facility] Comment on above: Order Comment: Speci men Type: BLOOD SPECIMENOrdering Facility: [facility] [place] Address: [address] [place] [address] Performed By: #### 2 4323-8 ####[facility] LABCLIA [id number] [place] [address] Protein [Mass/Vol] 7.4 g/dL Normal 6.3-8.0 [facility] Comment on above: Order Comment: Speci men Type: BLOOD SPECIMENOrdering Facility: [facility] [place] Address: [address] [place] [address] Performed By: #### 2 4323-8 ####[facility] LABCLIA [id number] [place] [address] Sodium [Moles/Vol] 141 mmol/L Normal 136-144 [facility] Comment on above: Order Comment: Speci men Type: BLOOD SPECIMENOrdering Facility: [facility] [place] Address: [address] [place] [address] Performed By: #### 2 4323-8 ####[facility] LABCLIA [id number] [place] [address] Urea nitrogen [Mass/Vol] 14 mg/dL Normal 7-21 [facility] Comment on above: Order Comment: Speci men Type: BLOOD SPECIMENOrdering Facility: [facility] [place] Address: [address] [place] [address] Performed By: #### 2 4323-8 ####[facility] LABCLIA [id number] [place] [address] HBV core Ab Ser Qlon 023 HBV core Ab Ql (S) Negative Normal Negative [facility] Comment on above: Order Comment: Speci men Type: BLOOD SPECIMENOrdering Facility: [facility] [place] Address: [address] [place] [address] Result Comment: No e vidence of current or past infection with Hepatitis B virus. Should recent infection be suspected, repeat testing may be considered 3-4 weeks after this draw. Performed By: #### 5 195-3, 60310-7, 10811-9 ####[facility] LABCLIA [id number] [address] [place] HBV surface Ab Ql (S)on 09-10 HBV surface Ab Qn (S) 528.76 mIU/mL [facility] HBV surface Ab Qn (S) 528.76 mIU/mL Normal [facility] Comment on above: Order Comment: Speci men Type: BLOOD SPECIMENOrdering Facility: [facility] [place] Address: [address] [place] [address] Result Comment: <8 m IU/mL: No serological evidence of immunity to Hepatitis B Virus. >/= 8 to <12 mIU/mL: No serological evidence of immunity to Hepatitis B Virus. >/= 12 mIU/mL: Consistent with serological evidence of immunity to Hepatitis B Virus. Performed By: #### 5 195-3, 87346-9, 22259-0 ####[facility] LABCLIA [id number] [place] [address] [place] HBV surface Ab Ser Qlon 09-10 HBV surface Ab Ql (S) Positive Normal [facility] Comment on above: Order Comment: Speci men Type: BLOOD SPECIMENOrdering Facility: [facility] [place] Address: [address] [place] [address] Result Comment: Cons istent with serological evidence of immunity to Hepatitis B Virus. Performed By: #### 5 195-3, 41979-1, 20335-0 ####[facility] LABCLIA [id number] [place] [address] [place] HBV surface Ag Ser Qlon 09-10 HBV surface Ag Ql (S) Negative Normal Negative [facility] Comment on above: Order Comment: Speci men Type: BLOOD SPECIMENOrdering Facility: [facility] [place] Address: [address] [place] [address] Performed By: #### 5 195-3, 42252-8, 45729-1 ####[facility] LABCLIA [id number] [place] [address] [place] HCV Ab Ser Qlon 09-25-2023 HCV Ab Ql (S) Negative Normal Negative [facility] Comment on above: Order Comment: Speci men Type: BLOOD SPECIMENOrdering Facility: [facility] [place] Address: [address] [place] [address] Result Comment: The result suggests no evidence of active infection with Hepatitis C virus. Should recent infection be suspected, repeat testing may be considered 4-6 weeks after this draw. Performed By: #### 1 6128-1 ####[facility] LABIA [id number] [place] [address] [place] HEP B CORE AB TOTALon 2022 HBV core Ab Ql (S) Negative Negative [facility] HEP B SURF ABon 09-25-2023 HBV surface Ab Ql (S) Positive [facility] HEP B SURF AG SCRNon 023 HBV surface Ag Ql (S) Negative Negative [facility] HEPATITIS C ANTIBODY IA WITH CONFIRMATIONon 09-25-2023 HCV Ab Ql (S) Negative Negative [facility] B-HCG SerPl-aCncon 3 HCG.beta subunit Qn m[IU]/mL Normal <5.0 [facility] Comment on above: Order Comment: Speci men Type: BLOOD SPECIMENOrdering Facility: [facility] [place] Address: [place] [address] Result Comment: Edwar dela cruzrebecca Performed By: #### 2 1198-7 ####[facility] LABCLIA [id number] [place] [address] [place] IgG SerPl-mCncon 09-24-2023 IgG [Mass/Vol] 1281 mg/dL Normal 700-1600 [facility] Comment on above: Order Comment: Speci men Type: BLOOD SPECIMENOrdering Facility: [facility] [place] Address: [place] [address] Performed By: #### 2 472-9, 2465-3 ####[facility] LABCLIA [id number] [place] [address] [place] IgM SerPl-mCncon 09-24-2023 IgM [Mass/Vol] 128 mg/dL Normal 40-230 [facility] Comment on above: Order Comment: Speci men Type: BLOOD SPECIMENOrdering Facility: [facility] [place] Address: [address] [facility] [address] Performed By: #### 2 472-9, 2465-3 ####[facility] LABCLIA [id number] [place] [address] [place] [facility] ----- SMOOTH MARTINEZ ([id number]) 1985 F Date Time Provider Department 08/27/[address] [facility] During your visit today, we [...] Primary Visit Diagnosis:Uterine polyp [N84.0] Order(s):CONSULT TO AUXILIARY ENGINEER [9021] Order #: [id number]: 1 FUTURE Prescriptions as of 08/27/2023 - [...] (FLONASE) 50 mcg/actuation nasal spray Use 1 [place] in each nostril once daily. Problem List [...] Status:Closed by JAN[address] on 08/27/23 Normal [facility] PELVIC US WHIon 08-26-2023 [facility] CBC W Auto Differential pane l (Bld)on 08-19-2023 Basophils (Bld) [#/Vol] 0.05 10*3/uL Normal <0.11 [facility] Comment on above: Order Comment: Speci men Type: BLOOD SPECIMENOrdering Facility: [facility] [place] Address: [address] [place] [address] Performed By: #### 5 7021-8 ####[facility]ENTERLibby [facility] LABCLIA [id number] [place] [id number] [place] Basophils/100 WBC (Bld) 0.7 % Normal [facility] Comment on above: Order Comment: Speci men Type: BLOOD SPECIMENOrdering Facility: [facility] [place] Address: [address] [place] [address] Performed By: #### 5 7021-8 ####PAVAN [facility] LABCLIA [id number] [place] [id number] [place] Differential cell count method Nom (Bld) Auto Normal [facility] Comment on above: Order Comment: Speci men Type: BLOOD SPECIMENOrdering Facility: [facility] [place] Address: [address] [place] [address] Performed By: #### 5 7021-8 ####[facility]ITAL[facility]ST [facility] LABCLIA [id number] [place] [id number] [place] Eosinophils (Bld) [#/Vol] 0.10 10*3/uL Normal <0.46 [facility] Comment on above: Order Comment: Speci men Type: BLOOD SPECIMENOrdering Facility: [facility] [place] Address: [address] [place] [address] Performed By: #### 5 7021-8 ####BRITTNEYURILibby [facility] LABIA [id number] [place] [address] [place] Eosinophils/100 WBC (Bld) 1.5 % Normal [facility] Comment on above: Order Comment: Speci men Type: BLOOD SPECIMENOrdering Facility: [facility] [place] Address: [address] [place] [address] Performed By: #### 5 7021-8 ####[facility] HOSPITALURILibby [facility] LABIA [id number] [place] [id number] [place] Erythrocyte distribution width (RBC) [Ratio] 24.4 % High 11.5-15.0 [facility] Comment on above: Order Comment: Speci men Type: BLOOD SPECIMENOrdering Facility: [facility] [place] Address: [address] [place] [address] Performed By: #### 5 7021-8 ####[facility]OSPITALMARCIANO [facility] LABIA [id number] [place] [id number] [place] Hematocrit (Bld) [Volume fraction] 35.6 % Low 36.0-46.0 [facility] Comment on above: Order Comment: Speci men Type: BLOOD SPECIMENOrdering Facility: [facility] [place] Address: [address] [place] [address] Performed By: #### 5 7021-8 ####[facility]OSPITALMARCIANO [facility] LABIA [id number] [place] [address] [place] Hemoglobin (Bld) [Mass/Vol] 10.6 g/dL Low 11.5-15.5 [facility] Comment on above: Order Comment: Speci men Type: BLOOD SPECIMENOrdering Facility: [facility] [place] Address: [address] [place] [address] Performed By: #### 5 7021-8 ####AMHERSLibby [facility] LABIA [id number] [place] [address] [place] Immature granulocytes (Bld) [#/Vol] 10*3/uL Normal <0.10 [facility] Comment on above: Order Comment: Speci men Type: BLOOD SPECIMENOrdering Facility: [facility] [place] Address: [address] [place] [address] Performed By: #### 5 7021-8 ####[facility]ENTERLibby [facility] LABCLIA [id number] [place] [address] [place] Immature granulocytes/100 WBC (Bld) 0.3 % Normal [facility] Comment on above: Order Comment: Speci men Type: BLOOD SPECIMENOrdering Facility: [facility] [place] Address: [address] [place] [address] Performed By: #### 5 7021-8 ####[facility]ENTERLibby [facility] LABCLIA [id number] [place] [id number] [place] Lymphocytes (Bld) [#/Vol] 2.27 10*3/uL Normal 1.00-4.00 [facility] Comment on above: Order Comment: Speci men Type: BLOOD SPECIMENOrdering Facility: [facility] [place] Address: [address] [place] [address] Performed By: #### 5 7021-8 ####[facility]ENTERLibby [facility] LABIA [id number] [place] [address] [place] Lymphocytes/100 WBC (Bld) 32.9 % Normal [facility] Comment on above: Order Comment: Speci men Type: BLOOD SPECIMENOrdering Facility: [facility] [place] Address: [address] [place] [address] Performed By: #### 5 7021-8 ####[facility] CENTERLibby [facility] LABCLIA [id number] [place] [id number] [place] MCH (RBC) [Entitic mass] 22.1 pg Low 26.0-34.0 [facility] Comment on above: Order Comment: Speci men Type: BLOOD SPECIMENOrdering Facility: [facility] [place] Address: [address] [place] [address] Performed By: #### 5 7021-8 ####PAVAN [facility] LABCLIA [id number] [place] [address] [place] MCHC (RBC) [Mass/Vol] 29.8 g/dL Low 30.5-36.0 [facility] Comment on above: Order Comment: Speci men Type: BLOOD SPECIMENOrdering Facility: [facility] [place] Address: [address] [place] [address] Performed By: #### 5 7021-8 ####FORM[facility]OSPITALERST [facility] LABIA [id number] [place] [id number] [place] MCV (RBC) [Entitic vol] 74.3 fL Low 80.0-100.0 [facility] Comment on above: Order Comment: Speci men Type: BLOOD SPECIMENOrdering Facility: [facility] [place] Address: [address] [place] [address] Performed By: #### 5 7021-8 ####[facility] LABIA [id number] [place] [id number] [place] Monocytes (Bld) [#/Vol] 0.52 10*3/uL Normal <0.87 [facility] Comment on above: Order Comment: Speci men Type: BLOOD SPECIMENOrdering Facility: [facility] [place] Address: [address] [place] [address] Performed By: #### 5 7021-8 ####[facility] LABIA [id number] [place] [address] [place] Monocytes/100 WBC (Bld) 7.5 % Normal [facility] Comment on above: Order Comment: Speci men Type: BLOOD SPECIMENOrdering Facility: [facility] [place] Address: [address] [place] [address] Performed By: #### 5 7021-8 ####[facility]ST [facility] LABIA [id number] [place] [address] [place] Neutrophils (Bld) [#/Vol] 3.93 10*3/uL Normal 1.45-7.50 [facility] Comment on above: Order Comment: Speci men Type: BLOOD SPECIMENOrdering Facility: [facility] [place] Address: [address] [place] [address] Performed By: #### 5 7021-8 ####[facility]ENTERT [facility] LABIA [id number] [place] [address] [facility] Neutrophils/100 WBC (Bld) 57.1 % Normal [facility] Comment on above: Order Comment: Speci men Type: BLOOD SPECIMENOrdering Facility: [facility] [place] Address: [address] [place] [address] Performed By: #### 5 7021-8 ####[facility]ENT[facility] LABIA [id number] [place] [id number] [place] Nucleated RBC (Bld) [#/Vol] 10*3/uL Normal <0.01 [facility] Comment on above: Order Comment: Speci men Type: BLOOD SPECIMENOrdering Facility: [facility] [place] Address: [address] [place] [address] Performed By: #### 5 7021-8 ####[facility]ENTERLibby [facility] LABIA [id number] [place] [id number] [place] Nucleated RBC/100 WBC (Bld) [Ratio] 0.0 /100 WBC Normal [facility] Comment on above: Order Comment: Speci men Type: BLOOD SPECIMENOrdering Facility: [facility] [place] Address: [address] [place] [address] Performed By: #### 5 7021-8 ####[facility]ENTERLibby [facility] LABIA [id number] [place] [id number] [place] Platelet mean volume (Bld) [Entitic vol] Normal [facility] Comment on above: Order Comment: Speci men Type: BLOOD SPECIMENOrdering Facility: [facility] [place] Address: [address] [place] [address] Result Comment: Unab le to Report. Performed By: #### 5 7021-8 ####[facility] LABIA [id number] [place] [address] [place] Platelets (Bld) [#/Vol] 213 10*3/uL Normal 150-400 [facility] Comment on above: Order Comment: Speci men Type: BLOOD SPECIMENOrdering Facility: [facility] [place] Address: [place] [address] Result Comment: No c lot detected. Performed By: #### 5 7021-8 ####[facility] LABIA [id number] [place] [id number] [place] [facility] RBC (Bld) [#/Vol] 4.79 10*6/uL Normal 3.90-5.20 [facility] Comment on above: Order Comment: Speci men Type: BLOOD SPECIMENOrdering Facility: [facility] [place] Address: [place] [address] Performed By: #### 5 7021-8 ####[facility] LABIA [id number] [address] OF [facility] WBC (Bld) [#/Vol] 6.89 10*3/uL Normal 3.70-11.00 [facility] Comment on above: Order Comment: Speci men Type: BLOOD SPECIMENOrdering Facility: [facility] [place] Address: [place] [address] Performed By: #### 5 7021-8 ####[facility] LABCLIA [id number] [place] [id number] [facility] CNOVon 08-19-2023 CNOV Office Visit (NEUR ) ----- SMOOTH MARTINEZ ([id number]) 1985 F Date Time Provider Department 08/19/23 9:00 AM [facility] During your visit today, we recorded the following information about you: Pulse Blood pressure Weight Height 96/minute 104/77 56.7 kg 1.689 m Germania Wilkinson MD 08/19/2023 4:26 PM Signed [facility] New Patient Evaluation [...] or near accidents due to drowsy drivin Pearson Sleepiness Scale 01/03/2020 08/11/2023 Score 0 0 [...] Had 2 sleep studies - one at [place] [facility] at [place] OTHER RELEVANT LABS AND STUDIES: PAST MEDICAL [...] of Date: (more content not included)... Normal [facility] Ferritin SerPl-mCncon 2022 Ferritin [Mass/Vol] 25.6 ng/mL Normal 14.7-205.1 [facility] Comment on above: Order Comment: Speci men Type: BLOOD SPECIMENOrdering Facility: [facility] [place] Address: [address] [place] [address] Performed By: #### 2 276-4 ####[facility] LABCLIA [id number] [place] [address] [place] Iron and Iron binding capaci ty panelon 08-19-2023 Iron [Mass/Vol] 27 ug/dL Low 41-186 [facility] Comment on above: Order Comment: Speci men Type: BLOOD SPECIMENOrdering Facility: [facility] [place] Address: [address] [place] [address] Performed By: #### 5 0190-8 ####[facility] LABIA [id number] [place] [address] [place] Iron binding capacity [Mass/Vol] 353 ug/dL Normal 232-386 [facility] Comment on above: Order Comment: Speci men Type: BLOOD SPECIMENOrdering Facility: [facility] [place] Address: [address] [place] [address] Performed By: #### 5 0190-8 ####[facility] LABIA [id number] [place] [address] [place] Iron/TIBC [Molar ratio] 7.6 % Low 15.0-57.0 [facility] Comment on above: Order Comment: Speci men Type: BLOOD SPECIMENOrdering Facility: [facility] [place] Address: [address] [place] [address] Performed By: #### 5 0190-8 ####[facility] LABIA [id number] [place] [address] [place] CNOVon 07-23-2023 CNOV Office Visit ([facility] ) ----- MARTINEZPRISCILA GREWALISIDROSudheer F ([id number]) 1985 F Date Time Provider Department 07/23/23 11:15 AM TOR HERNANDEZ [facility] During your visit today, we recorded the following information about you: Pulse Blood pressure Weight 69/minute 94/62 56.7 kg Tor Hernandez APRN.[employer]ATIONAL SALES ASSOCIATE 07/23/2023 5:00 PM [facility] FOLLOWUP/ESTABLISHED PATIENT VISIT PRINCIPAL NEUROLOGIC DIAGNOSIS: Multiple Sclerosis DISEASE SUMMARY Date of onset: 03/2007 Date of diagnosis of MS: 03/2007 Disease course at onset: Relapsing-Remitting Current disease course: Progressive without relapses Previous disease therapies: - Betaseron 9599-0516 - Copaxone 1434-1511 - Tysabri 2009-Summer 2019 (stopped due to [...] over 3 weeks following occipital relase - 0214-9849 recurrent OS ON - 3885-6000 several relapses including L numbness, weakness, constipation, urinary urgency - 2019 R weakness and numbness needing a wheelchair, hospitalized at [facility] (off Tysabri x3 months due to planning [...] effects. 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 Gets shaniqua [...] starting next week, unable to accommodate home DIAMOND PICKER Walks without walker or cane Leans on [...] Flowsheet Row Office Visit from 07/23/2023 in [facility] Office Visit from 01/17/2023 in [facility] Appointment from 01/15/2023 in [facility] Upper Extremity Domain T Score 28.29 31.35 [...] Flowsheet Row Office Visit from 07/23/2023 in [facility] Office Visit from 01/17/2023 in [facility] Appointment from 01/15/2023 in [facility] Sleep Domain T Score 69.2 68.89 61 [...] lower extremity (04/17/2021), Multiple sclerosis (HCC), Seizure ([facility]), and Thyroid disease. She has no past medical history of Asthma, Blood dyscrasia, Breast disorder, Chlamydia, Chronic kidney disease, Complication of anesthesia, Coronary artery disease, Diabetes ([facility]), Diabetes, gestational, Gonorrhea, Herpes simplex virus (HSV) infection, History of pre-eclampsia in prior , currently , HIV infection ([facility]), (more content not included)... Normal [facility] 07-18-2023 [facility] Telephone ([facility]) ----- SMOOTH MARTINEZ ([id number]) 1985 F Date Time Provider Department 07/18/23 JANICE ALNE [facility] During your visit today, we [...] [D50.0] Order(s):CBC + DIFF [SQCBCDIF] Order #: [id number] FUTURE IRON + TIBC [SQIRON] Order #: [id number] FUTURE FERRITIN BLD [SQFERR] Order #: [id number] FUTURE Prescriptions as of 07/21/2023 - ketoconazole [...] (FLONASE) 50 mcg/actuation nasal spray Use 1 [place] in each nostril once daily. - MAGNESIUM [...] Status:Closed by SIXTO REBOLLEDO on 07/21/23 Normal [facility] CBC W Auto Differential pane l (Bld)on 07-17-2023 Basophils (Bld) [#/Vol] 0.06 10*3/uL Normal <0.11 [facility] Comment on above: Order Comment: Speci men Type: BLOOD SPECIMENOrdering Facility: [facility] [place] Address: [address] [place] [address] Performed By: #### 5 7021-8 ####[facility] LABCLIA [id number] [place] [address] [place] Basophils/100 WBC (Bld) 1.2 % Normal [facility] Comment on above: Order Comment: Speci men Type: BLOOD SPECIMENOrdering Facility: [facility] [place] Address: [address] [place] [address] Performed By: #### 5 7021-8 ####[facility] LABCLIA [id number] [place] [address] [place] Differential cell count method Nom (Bld) Auto Normal [facility] Comment on above: Order Comment: Speci men Type: BLOOD SPECIMENOrdering Facility: [facility] [place] Address: [address] [place] [address] Performed By: #### 5 7021-8 ####[facility] LABCLIA [id number] [place] [address] [place] Eosinophils (Bld) [#/Vol] 0.09 10*3/uL Normal <0.46 [facility] Comment on above: Order Comment: Speci men Type: BLOOD SPECIMENOrdering Facility: [facility] [place] Address: [address] [place] [address] Performed By: #### 5 7021-8 ####[facility] LABCLIA [id number] [place] [address] [place] Eosinophils/100 WBC (Bld) 1.8 % Normal [facility] Comment on above: Order Comment: Speci men Type: BLOOD SPECIMENOrdering Facility: [facility] [place] Address: [address] Performed By: #### 5 7021-8 ####[facility] LABIA [id number] [place] [address] [place] Erythrocyte distribution width (RBC) [Ratio] 25.8 % High 11.5-15.0 [facility] Comment on above: Order Comment: Speci men Type: BLOOD SPECIMENOrdering Facility: [facility] [place] Address: [address] Performed By: #### 5 7021-8 ####[facility] LABIA [id number] [place] [address] [place] Hematocrit (Bld) [Volume fraction] 34.2 % Low 36.0-46.0 [facility] Comment on above: Order Comment: Speci men Type: BLOOD SPECIMENOrdering Facility: [facility] [place] Address: [address] [place], [place] [address] Performed By: #### 5 7021-8 ####[facility] LABIA [id number] [place] [address] [place] Hemoglobin (Bld) [Mass/Vol] 9.6 g/dL Low 11.5-15.5 [facility] Comment on above: Order Comment: Speci men Type: BLOOD SPECIMENOrdering Facility: [facility] [place] Address: [address] Performed By: #### 5 7021-8 ####[facility] LABIA [id number] [place] [address] [place] Immature granulocytes (Bld) [#/Vol] 10*3/uL Normal <0.10 [facility] Comment on above: Order Comment: Speci men Type: BLOOD SPECIMENOrdering Facility: [facility] [place] Address: [address] [place], [place] [address] Performed By: #### 5 7021-8 ####[facility] LABCLIA [id number] [place] [address] [place] Immature granulocytes/100 WBC (Bld) 0.4 % Normal [facility] Comment on above: Order Comment: Speci men Type: BLOOD SPECIMENOrdering Facility: [facility] [place] Address: [address] [place], [place] [address] Performed By: #### 5 7021-8 ####[facility] LABCLIA [id number] [place] [address] [place] Lymphocytes (Bld) [#/Vol] 1.52 10*3/uL Normal 1.00-4.00 [facility] Comment on above: Order Comment: Speci men Type: BLOOD SPECIMENOrdering Facility: [facility] [place] Address: [address] [place], [place] [address] Performed By: #### 5 7021-8 ####[facility] LABIA [id number] [place] [address] [place] Lymphocytes/100 WBC (Bld) 31.2 % Normal [facility] Comment on above: Order Comment: Speci men Type: BLOOD SPECIMENOrdering Facility: [facility] [place] Address: [address] [place], [place] [address] Performed By: #### 5 7021-8 ####[facility] LABIA [id number] [place] [address] [place] MCH (RBC) [Entitic mass] 19.4 pg Low 26.0-34.0 [facility] Comment on above: Order Comment: Speci men Type: BLOOD SPECIMENOrdering Facility: [facility] [place] Address: [address] [place], [place] [address] Performed By: #### 5 7021-8 ####[facility] LABCLIA [id number] [place] [address] [place] MCHC (RBC) [Mass/Vol] 28.1 g/dL Low 30.5-36.0 [facility] Comment on above: Order Comment: Speci men Type: BLOOD SPECIMENOrdering Facility: [facility] [place] Address: [address] [place] [address] Performed By: #### 5 7021-8 ####[facility] LABCLIA [id number] [place] [address] [place] MCV (RBC) [Entitic vol] 69.2 fL Low 80.0-100.0 [facility] Comment on above: Order Comment: Speci men Type: BLOOD SPECIMENOrdering Facility: [facility] [place] Address: [address] [place] [address] Performed By: #### 5 7021-8 ####[facility] LABCLIA [id number] [place] [address] [place] Monocytes (Bld) [#/Vol] 0.65 10*3/uL Normal <0.87 [facility] Comment on above: Order Comment: Speci men Type: BLOOD SPECIMENOrdering Facility: [facility] [place] Address: [address] [place], [place] [address] Performed By: #### 5 7021-8 ####[facility] LABIA [id number] [address] [place] Monocytes/100 WBC (Bld) 13.3 % Normal [facility] Comment on above: Order Comment: Speci men Type: BLOOD SPECIMENOrdering Facility: [facility] [place] Address: [address] [place], [place] [address] Performed By: #### 5 7021-8 ####[facility] LABCLIA [id number] [place] [address] [place] Neutrophils (Bld) [#/Vol] 2.53 10*3/uL Normal 1.45-7.50 [facility] Comment on above: Order Comment: Speci men Type: BLOOD SPECIMENOrdering Facility: [facility] [place] Address: [address] Performed By: #### 5 7021-8 ####[facility] LABCLIA [id number] [address] [place] [facility] Neutrophils/100 WBC (Bld) 52.1 % Normal [facility] Comment on above: Order Comment: Speci men Type: BLOOD SPECIMENOrdering Facility: [facility] [place] Address: [address] [place], [place] [address] Performed By: #### 5 7021-8 ####[facility] LABCLIA [id number] [place] [address] [place] Nucleated RBC (Bld) [#/Vol] 10*3/uL Normal <0.01 [facility] Comment on above: Order Comment: Speci men Type: BLOOD SPECIMENOrdering Facility: [facility] [place] Address: [address] [place], [place] [address] Performed By: #### 5 7021-8 ####[facility] LABCLIA [id number] [place] [address] [place] Nucleated RBC/100 WBC (Bld) [Ratio] 0.0 /100 WBC Normal [facility] Comment on above: Order Comment: Speci men Type: BLOOD SPECIMENOrdering Facility: [facility] [place] Address: [address] [place], [place] [address] Performed By: #### 5 7021-8 ####[facility] LABCLIA [id number] [place] [address] [place] Platelet mean volume (Bld) [Entitic vol] Normal [facility] Comment on above: Order Comment: Speci men Type: BLOOD SPECIMENOrdering Facility: [facility] [place] Address: [address] [place] [address] Result Comment: Unab le to Report. Performed By: #### 5 7021-8 ####[facility] LABCLIA [id number] [place] [address] [place] Platelets (Bld) [#/Vol] 226 10*3/uL Normal 150-400 [facility] Comment on above: Order Comment: Speci men Type: BLOOD SPECIMENOrdering Facility: [facility] [place] Address: [address] [place] [address] Result Comment: Resu lts checked and verified.No clot detected. Performed By: #### 5 7021-8 ####[facility] LABIA [id number] [place] [address] [place] RBC (Bld) [#/Vol] 4.94 10*6/uL Normal 3.90-5.20 [facility] Comment on above: Order Comment: Speci men Type: BLOOD SPECIMENOrdering Facility: [facility] [place] Address: [address] [place] [address] Performed By: #### 5 7021-8 ####[facility] LABIA [id number] [place] [address] [place] WBC (Bld) [#/Vol] 4.87 10*3/uL Normal 3.70-11.00 [facility] Comment on above: Order Comment: Speci men Type: BLOOD SPECIMENOrdering Facility: [facility] [place] Address: [address] [place] [address] Performed By: #### 5 7021-8 ####[facility] LABIA [id number] [address] [place] CNOVon 07-17-2023 CNOV Office Visit ([facility] ) ----- SMOOTH MARTINEZ ([id number]) 1985 F Date Time Provider Department 07/17/23 11:00 AM [facility] During your visit today, we recorded the [...] with her significant other. She went to [place] for a few months to live with her parents. She canceled or no showed her appointments with [facility] and with her therapist. Patient said she [...] No C (more content not included)... Normal [facility] Comprehensive metabolic 2000 panelon 07-17-2023 Albumin [Mass/Vol] 4.6 g/dL Normal 3.9-4.9 [facility] Comment on above: Order Comment: Speci men Type: BLOOD SPECIMENOrdering Facility: [facility] [place] Address: [address] [place] [address] Performed By: #### 5 0190-8, 3016-3, 51582-1, 6-4 ####[facility] [id number] [place] [address] [place] ALP [Catalytic activity/Vol] 49 U/L Normal 34-123 [facility] Comment on above: Order Comment: Speci men Type: BLOOD SPECIMENOrdering Facility: [facility] [place] Address: [address] [place] [address] Performed By: #### 5 0190-8, 3016-3, 68450-9, 2275-4 ####[facility] [id number] [place] [address] [place] ALT [Catalytic activity/Vol] 10 U/L Normal 7-38 [facility] Comment on above: Order Comment: Speci men Type: BLOOD SPECIMENOrdering Facility: [facility] [place] Address: [address] [place] [address] Performed By: #### 5 0190-8, 3016-3, 09917-6, 6-4 ####[facility] LABIA [id number] [place] [address] [place] Anion gap [Moles/Vol] 9 mmol/L Normal 9-18 [facility] Comment on above: Order Comment: Speci men Type: BLOOD SPECIMENOrdering Facility: [facility] [place] Address: [address] [place] [address] Performed By: #### 5 0190-8, 3016-3, 79884-1, 2275-4 ####[facility] LABCLIA [id number] [place] [address] [place] AST [Catalytic activity/Vol] 17 U/L Normal 13-35 [facility] Comment on above: Order Comment: Speci men Type: BLOOD SPECIMENOrdering Facility: [facility] [place] Address: [address] [place] [address] Performed By: #### 5 0190-8, 3016-3, 92957-0, 2275-4 ####[facility] LABCLIA [id number] [place] [address] [place] Bilirubin [Mass/Vol] 0.5 mg/dL Normal 0.2-1.3 [facility] Comment on above: Order Comment: Speci men Type: BLOOD SPECIMENOrdering Facility: [facility] [place] Address: [address] [place] [address] Performed By: #### 5 0190-8, 3016-3, 48341-4, 2275-4 ####[facility] LABCLIA [id number] [place] [address] [place] Calcium [Mass/Vol] 9.4 mg/dL Normal 8.5-10.2 [facility] Comment on above: Order Comment: Speci men Type: BLOOD SPECIMENOrdering Facility: [facility] [place] Address: [address] [place] [address] Performed By: #### 5 0190-8, 3016-3, 38410-4, 2275-4 ####[facility] LABCLIA [id number] [place] [address] [place] Chloride [Moles/Vol] 106 mmol/L High 97-105 [facility] Comment on above: Order Comment: Speci men Type: BLOOD SPECIMENOrdering Facility: [facility] [place] Address: [address] [place] [address] Performed By: #### 5 0190-8, 3016-3, 75990-3, 2275-4 ####[facility] LABIA [id number] [place] [address] [place] CO2 [Moles/Vol] 24 mmol/L Normal 22-30 [facility] Comment on above: Order Comment: Speci men Type: BLOOD SPECIMENOrdering Facility: [facility] [place] Address: [address] [place] [address] Performed By: #### 5 0190-8, 3016-3, 63806-2, 2275-4 ####[facility] [id number] [place] [address] [place] Creatinine [Mass/Vol] 0.94 mg/dL Normal 0.58-0.96 [facility] Comment on above: Order Comment: Speci men Type: BLOOD SPECIMENOrdering Facility: [facility] [place] Address: [address] [place] [address] Performed By: #### 5 0190-8, 3016-3, 52477-9, 2275- ####[facility] [id number] [address] [place] Creatinine and Glomerular filtration rate.predicted panel (S/P/Bld) 80 mL/min/1.73m??? Normal >=60 [facility] Comment on above: Order Comment: Speci men Type: BLOOD SPECIMENOrdering Facility: [facility] [place] Address: [address] [place] [address] Result Comment: Priscila mated Glomerular Filtration Rate [...] accurately reflect actual GFR. Performed By: #### 5 0190-8, 3016-3, 91736-6, 2275-4 ####[facility] LABCLIA [id number] [place] [address] [place] Glucose [Mass/Vol] 80 mg/dL Normal 74-99 [facility] Comment on above: Order Comment: Speci men Type: BLOOD SPECIMENOrdering Facility: [facility] [place] Address: [address] [place] [address] Result Comment: The [place] [employer] (ADA) provides guidance for cutoff [...] Standards of Medical Care in Diabetes 2016, [place] [employer]. Diabetes Care. 2016.39(Suppl 1). Performed By: #### 5 0190-8, 3016-3, 99231-0, 2275-4 ####[facility] LABCLIA [id number] [place] [address] [place] Potassium [Moles/Vol] 4.4 mmol/L Normal 3.7-5.1 [facility] Comment on above: Order Comment: Speci men Type: BLOOD SPECIMENOrdering Facility: [facility] [place] Address: [address] [place], [place] [address] Performed By: #### 5 0190-8, 3016-3, 50188-7, 2275-4 ####[facility] LABCLIA [id number] [place] [address] [place] Protein [Mass/Vol] 7.7 g/dL Normal 6.3-8.0 [facility] Comment on above: Order Comment: Speci men Type: BLOOD SPECIMENOrdering Facility: [facility] [place] Address: [address] Performed By: #### 5 0190-8, 3016-3, 82593-3, 2275-4 ####[facility] LABCLIA [id number] [place] [address] [place] Sodium [Moles/Vol] 139 mmol/L Normal 136-144 [facility] Comment on above: Order Comment: Speci men Type: BLOOD SPECIMENOrdering Facility: [facility] [place] Address: [address] [place] [place] [address] Performed By: #### 5 0190-8, 6-3, 68488-8, 2275-4 ####[facility] LABCLIA [id number] [place] [address] [place] Urea nitrogen [Mass/Vol] 13 mg/dL Normal 7-21 [facility] Comment on above: Order Comment: Speci men Type: BLOOD SPECIMENOrdering Facility: [facility] [place] Address: [address] Performed By: #### 5 0190-8, 3016-3, 00197-8, 2275-4 ####[facility] LABCLIA [id number] [place] [address] [place] Ferritin SerPl-ncon 2022 Ferritin [Mass/Vol] 15.8 ng/mL Normal 14.7-205.1 [facility] Comment on above: Order Comment: Speci men Type: BLOOD SPECIMENOrdering Facility: [facility] Address: [address] Performed By: #### 5 0190-8, 3016-3, 38651-7, 4 ####[facility] LABCLIA [id number] [place] [address] [place] Iron and Iron binding capaci ty panelon 07-17-2023 Iron [Mass/Vol] 321 ug/dL High 41-186 [facility] Comment on above: Order Comment: Speci men Type: BLOOD SPECIMENOrdering Facility: [facility] [place] Address: [address] [place] [address] Performed By: #### 5 0190-8, 3016-3, 27549-8, 2276-4 ####[facility] LABCLIA [id number] [place] [address] [place] Iron binding capacity [Mass/Vol] 400 ug/dL High 232-386 [facility] Comment on above: Order Comment: Speci men Type: BLOOD SPECIMENOrdering Facility: [facility] [place] Address: [address] [place] [address] Performed By: #### 5 0190-8, 3016-3, 44610-8, 6-4 ####[facility] LABCLIA [id number] [place] [address] [place] Iron/TIBC [Molar ratio] 80.3 % High 15.0-57.0 [facility] [facility] Comment on above: Order Comment: Speci men Type: BLOOD SPECIMENOrdering Facility: [facility] Address: [address] [place] [address] Performed By: #### 5 0190-8, 3016-3, 94481-4, 6-4 ####[facility] LABIA [id number] [place] [address] [place] TSH SerPl-aCncon 07-17-2023 TSH Qn 1.410 m[IU]/L Normal 0.270-4.200 [facility] Comment on above: Order Comment: Speci men Type: BLOOD SPECIMENOrdering Facility: [facility] Address: [address] [place] [address] Result Comment: If t he patient is , TSH reference range varies by gestational period: First Trimester (weeks 9-12): 0.180-2.990 mIU/L Second Trimester: 0.110-3.980 mIU/L Third Trimester: 0.480-4.710 mIU/L Rich Patrick, et al. A Practical Approach for the Verifications and Determination of Site- and Trimester-Specific Reference Intervals for Thyroid Function tests in . Thyroid, 2019:29:3:412-420. Vivek Null, et al. 2017 Guidelines of the [place] [employer] for the Diagnosis and Management of Thyroid Disease during and the . Thyroid, 2017:27:3:315-389. Performed By: #### 5 0190-8, 3016-3, 32578-4, 2276-4 ####[facility] LABCLIA [id number] [place] [address] [place] Trichmonas Vaginalis Screen (EIA)on 01-24-2023 Trichomonas Vaginalis Screen (EIA) Negative Normal [facility] Comment on above: Performed By: #### E TRIC #### [facility] [address] [place] [address] Wet Prep-Medical Purposes On berry 01-24-2023 Wet Prep Clue Cellls 1+ Abnormal [facility] Comment on above: Performed By: #### W ETPR #### [facility] [address] [place] [address] Wet Prep Trichomonas See EIA Normal [facility] Comment on above: Performed By: #### W ETPR #### [facility] [address] [address] Wet Prep Yeast None Seen Normal [facility] Comment on above: Performed By: #### W ETPR #### [facility] [address] [place] [address] CBC W Auto Differential pane l (Bld)on 01-17-2023 Basophils (Bld) [#/Vol] 0.07 10*3/uL <0.11 k/uL [facility] Basophils/100 WBC (Bld) 1.0 % [facility] Differential cell count method Nom (Bld) Auto [facility] Eosinophils (Bld) [#/Vol] 0.07 10*3/uL <0.46 k/uL [facility] Eosinophils/100 WBC (Bld) 1.0 % [facility] Erythrocyte distribution width (RBC) [Ratio] 15.5 % High 11.5 - 15.0 % [facility] Hematocrit (Bld) [Volume fraction] 31.5 % Low 36.0 - 46.0 % [facility] Hemoglobin (Bld) [Mass/Vol] 9.4 g/dL Low 11.5 - 15.5 g/dL [facility] Immature granulocytes (Bld) [#/Vol] <0.10 k/uL [facility] Immature granulocytes/100 WBC (Bld) 0.3 % [facility] Lymphocytes (Bld) [#/Vol] 2.30 10*3/uL 1.00 - 4.00 k/uL [facility] Lymphocytes/100 WBC (Bld) 32.7 % [facility] MCH (RBC) [Entitic mass] 22.2 pg Low 26.0 - 34.0 pg [facility] MCHC (RBC) [Mass/Vol] 29.8 g/dL Low 30.5 - 36.0 g/dL [facility] MCV (RBC) [Entitic vol] 74.3 fL Low 80.0 - 100.0 fL [facility] Monocytes (Bld) [#/Vol] 0.51 10*3/uL <0.87 k/uL [facility] Monocytes/100 WBC (Bld) 7.2 % [facility] Neutrophils (Bld) [#/Vol] 4.07 10*3/uL 1.45 - 7.50 k/uL [facility] Neutrophils/100 WBC (Bld) 57.8 % [facility] Nucleated RBC (Bld) [#/Vol] <0.01 k/uL [facility] Nucleated RBC/100 WBC (Bld) [Ratio] 0.0 /100 WBC [facility] Platelet mean volume (Bld) [Entitic vol] 13.6 fL High 9.0 - 12.7 fL [facility] Platelets (Bld) [#/Vol] 304 10*3/uL 150 - 400 k/uL [facility] RBC (Bld) [#/Vol] 4.24 10*6/uL 3.90 - 5.2 0 m/uL [facility] WBC (Bld) [#/Vol] 7.04 10*3/uL 3.70 - 11. 00 k/uL [facility] Comprehensive metabolic 2000 panelon 01-17-2023 Albumin [Mass/Vol] 4.5 g/dL 3.9 - 4.9 g/dL [facility] ALP [Catalytic activity/Vol] 62 U/L 34 - 123 U/L [facility] ALT [Catalytic activity/Vol] 11 U/L 7 - 38 U/L [facility] Anion gap [Moles/Vol] 9 mmol/L 9 - 18 mmol/L [facility] AST [Catalytic activity/Vol] 18 U/L 13 - 35 U/L [facility] Bilirubin [Mass/Vol] 0.3 mg/dL 0.2 - 1 .3 mg/dL [facility] Calcium [Mass/Vol] 9.8 mg/dL 8.5 - 10. 2 mg/dL [facility] Chloride [Moles/Vol] 104 mmol/L 97 - 10 5 mmol/L [facility] CO2 [Moles/Vol] 26 mmol/L 22 - 30 mmol/L [facility] Creatinine [Mass/Vol] 0.79 mg/dL 0.58 - 0.96 mg/dL [facility] Estimated Glomerular Filtration Rate 99 mL/min/1.73m >=60 mL/min/1.73m [facility] Glucose [Mass/Vol] 69 mg/dL Low 74 - 99 mg/dL [facility] Potassium [Moles/Vol] 4.2 mmol/L 3.7 - 5.1 mmol/L [facility] Protein [Mass/Vol] 7.9 g/dL 6.3 - 8.0 g/dL [facility] Sodium [Moles/Vol] 139 mmol/L 136 - 144 mmol/L [facility] Urea nitrogen [Mass/Vol] 11 mg/dL 7 - 21 mg/dL [facility] C.trachomatis N.gonorrhoeae DNAon 12-10-2022 C. trachomatis DNA DEIRDRE+probe Ql (Unsp spec) Negative Normal Negative [facility] N. gonorrhoeae DNA DEIRDRE+probe Ql (Unsp spec) Negative Normal Negative [facility] Trichmonas Vaginalis Screen (EIA)on 12-06-2022 Trichomonas Vaginalis Screen (EIA) Negative Normal [facility] Comment on above: Performed By: #### E TRIC #### [facility] [address] [place] [address] Wet Prep-Medical Purposes On berry 12-06-2022 Wet Prep Clue Cellls 1+ Abnormal [facility] [place] Comment on above: Performed By: #### W ETPR #### [facility] [address] [place] [address] Wet Prep Trichomonas See EIA Normal [facility] Comment on above: Performed By: #### W ETPR #### [facility] [address] [place] [address] Wet Prep Yeast None Seen Normal [facility] Comment on above: Performed By: #### W ETPR #### [facility] [address] [place] [address] Albumin [Mass/volume] in Ser um or PlasmaOrdered By: Vishal Agarwal on 10-27-2022 Albumin [Mass/Vol] 4.1 g/dL 3.2-5.5 [facility] Basophils Auto (Bld) [#/Vol] Ordered By: Vishal Agarwal on 10-27-2022 Basophils (Bld) [#/Vol] 0.0 10*3/uL 0.0-0.2 [facility] Basophils/100 WBC Auto (Bld) Ordered By: Vishal Agarwal on 10-27-2022 Basophils/100 WBC (Bld) 0.4 % . [facility] COVID CepheidOrdered By: Brook Agarwal on 10-27-2022 SARS-CoV-2 (COVID-19) Ab IA Ql Positive Negative [facility] Comment on above: This is a duplicate [employer] Xpert Xpress CoV-2/Flu/RSV Plus RNA by RT-PCR result to be used for statistical tracking purpose only. SARS-CoV-2 (COVID-19) RNA DEIRDRE+probe Ql (Unsp spec) [facility] Creatinine and Glomerular fi ltration rate.predicted panel (S/P/Bld)Ordered By: Vishal Agarwal on 10-27-2022 Creatinine [Mass/Vol] 0.96 mg/dL 0.44-1.03 [facility] Eosinophils Auto (Bld) [#/Vo l]Ordered By: Vishal Agarwal on 10-27-2022 Eosinophils (Bld) [#/Vol] 0.0 10*3/uL 0.0-0.45 [facility] Eosinophils/100 WBC Auto (Bl d)Ordered By: Vishal Agarwal on 10-27-2022 Eosinophils/100 WBC (Bld) 0.0 % . [facility] Erythrocyte distribution wid th Auto (RBC) [Ratio]Ordered By: Vishal Agarwal on 10-27-2022 Erythrocyte distribution width (RBC) [Ratio] 17.4 % 11.9-15.3 [facility] Estimated glomerular filtrat ion rate (GFR) non- AmericanOrdered By: Vishal Agarwal on 10-27-2022 GFR/1.73 sq M.predicted among non-blacks MDRD (S/P/Bld) [Vol rate/Area] > 60 mL/Min [facility] Globulin Calc (S) [Mass/Vol] Ordered By: Vishal Agarwal on 10-27-2022 Globulin (S) [Mass/Vol] 3.5 g/dL [facility] Hematocrit Auto (Bld) [Volum e fraction]Ordered By: Vishal Agarwal on 10-27-2022 Hematocrit (Bld) [Volume fraction] 38.7 % 34.0-46.4 [facility] Hemoglobin [Mass/volume] in BloodOrdered By: Vishal Agarwal on 10-27-2022 Hemoglobin (Bld) [Mass/Vol] 12.1 g/dL 11.8-15.4 [facility] Leukocytes [#/volume] correc che for nucleated erythrocytes in Blood by Automated counOrdered By: Vishal Agarwal on 10-27-2022 WBC corrected for nucl RBC Auto (Bld) [#/Vol] 4.5 10*3/uL 3.8-11.6 [facility] Lymphocytes Auto (Bld) [#/Vo l]Ordered By: Vishal Agarwal on 10-27-2022 Lymphocytes (Bld) [#/Vol] 0.5 10*3/uL 1.00-4.8 [facility] Lymphocytes/100 WBC Auto (Bl d)Ordered By: Vishal Agarwal on 10-27-2022 Lymphocytes/100 WBC (Bld) 10.8 % . [facility] MCH Auto (RBC) [Entitic mass ]Ordered By: Vishal Agarwal on 10-27-2022 MCH (RBC) [Entitic mass] 23.7 pg 24.7-34.3 [facility] MCHC Auto (RBC) [Mass/Vol]Or dered By: Vishal Agarwal on 10-27-2022 MCHC (RBC) [Mass/Vol] 31.2 g/dL 32.0-35.0 [facility] MCV Auto (RBC) [Entitic vol] Ordered By: Vishal Agarwal on 10-27-2022 MCV (RBC) [Entitic vol] 76.0 fL 80-100 [facility] Monocyte distribution width [Entitic volume] in Blood by AutomatedOrdered By: Vishal Agarwal on 10-27-2022 Monocyte distribution width Auto (Bld) [Entitic vol] 24.86 % 0.00-20.00 [facility] Comment on above: For adults in ED, MD W > 20.0 may be associated with a higher risk of sepsis during the first 12 hrs of hospital admission Monocytes Auto (Bld) [#/Vol] Ordered By: Vishal Agarwal on 10-27-2022 Monocytes (Bld) [#/Vol] 0.8 10*3/uL 0.0-0.8 [facility] Monocytes/100 WBC Auto (Bld) Ordered By: Vishal Agarwal on 10-27-2022 Monocytes/100 WBC (Bld) 16.8 % . [facility] Neutrophils Auto (Bld) [#/Vo l]Ordered By: Vishal Agarwal on 10-27-2022 Neutrophils (Bld) [#/Vol] 3.2 10*3/uL 1.8-7.7 [facility] Neutrophils/100 WBC Auto (Bl d)Ordered By: Vishal Agarwal on 10-27-2022 Neutrophils/100 WBC (Bld) 72.0 % . [facility] No Panel InformationOrdered By: Vishal Agarwal on 10-27-2022 Estimated GFR () > 60 mL/Min [facility] Comment on above: GFR estimated refere nce range: According to KDOQI guidelines, <60 ml/min/1.73m2 is sufficient to diagnose a patient with chronic kidney disease. Pharmacy Creatinine Clearance (Chem 75.11 [facility] Nucleated erythrocytes [Pres ence] in Blood by Automated countOrdered By: Vishal Agarwal on 10-27-2022 Nucleated RBC Auto Ql (Bld) 0.1 /100{WBC} 0-0.5 [facility] Platelet mean volume Auto (B ld) [Entitic vol]Ordered By: Vishal Agarwal on 10-27-2022 Platelet mean volume (Bld) [Entitic vol] 11.0 fL 6.3-10.7 [facility] Platelets Auto (Bld) [#/Vol] Ordered By: Vishal Agarwal on 10-27-2022 Platelets (Bld) [#/Vol] 148 10*3/uL 150-450 [facility] Protein [Mass/volume] in Ser um or PlasmaOrdered By: Vishal Agarwal on 10-27-2022 Protein [Mass/Vol] 7.6 g/dL 6.1-7.9 [facility] RBC Auto (Bld) [#/Vol]Ordere d By: Vishal Agarwla on 10-27-2022 RBC (Bld) [#/Vol] 5.10 10*6/uL 3.60-5.00 [facility] Serum or plasma alanine gannon otransferase measurement without P-5'-P (enzymatic activiOrdered By: Vishal Agarwal on 10-27-2022 ALT No additional P-5'-P [Catalytic activity/Vol] 18 U/L 10-60 [facility] Serum or plasma albumin/glob ulin mass ratioOrdered By: Vishal Agarwal on 10-27-2022 Albumin/Globulin [Mass ratio] 1.2 {ratio} [facility] Serum or plasma alkaline bull sphatase measurement (enzymatic activity/volume)Ordered By: Vishal Agarwal on 10-27-2022 ALP [Catalytic activity/Vol] 43 U/L 32-92 [facility] Serum or plasma anion gap de terminationOrdered By: Vishal Agarwal on 10-27-2022 Anion gap [Moles/Vol] 13.5 mmol/L 6.0-15.0 [facility] Serum or plasma aspartate am inotransferase measurement (enzymatic activity/volume)Ordered By: Vishal Agarwal on 10-27-2022 AST [Catalytic activity/Vol] 24 U/L 10-42 [facility] Serum or plasma calcium scotty urement (mass/volume)Ordered By: Vihsal Agarwal on 10-27-2022 Calcium [Mass/Vol] 9.2 mg/dL 8.2-10.2 [facility] Serum or plasma chloride suzie surement (moles/volume)Ordered By: Vishal Agarwal on 10-27-2022 Chloride [Moles/Vol] 101 mmol/L 95-114 [facility] Serum or plasma glucose scotty urement (mass/volume)Ordered By: Vishal Agarwal on 10-27-2022 Glucose [Mass/Vol] 102 mg/dL 70-100 [facility] Comment on above: ADA recommended refe rence rangeRandom Glucose Reference Range is dependent on time and content of last meal. Glucose of more than 200 mg/dL in a nonstressed, ambulatory subject supports the diagnosis of Diabetes Mellitus. Serum or plasma potassium me asurement (moles/volume)Ordered By: Vishal Agarwal on 10-27-2022 Potassium [Moles/Vol] 3.7 mmol/L 3.5-5.1 [facility] Serum or plasma sodium measu rement (moles/volume)Ordered By: Vishal Agarwal on 10-27-2022 Sodium [Moles/Vol] 134 mmol/L 136-146 [facility] Serum or plasma total biliru bin measurement (mass/volume)Ordered By: Vishal Agarwal on 10-27-2022 Bilirubin [Mass/Vol] 0.8 mg/dL 0.3-1.2 [facility] Serum or plasma total carbon dioxide measurement (moles/volume)Ordered By: Vishal Agarwal on 10-27-2022 CO2 [Moles/Vol] 23.2 mmol/L 22.0-30.0 [facility] Serum or plasma urea nitroge n measurement (mass/volume)Ordered By: Vishal Agarwal on 10-27-2022 Urea nitrogen [Mass/Vol] 10 mg/dL 9-23 [facility] WBC Auto (Bld) [#/Vol]Ordere d By: Vishal Any on 10-27-2022 WBC (Bld) [#/Vol] 4.5 10*3/uL 3.8-11.6 [facility] HBV surface Ab IA Ql (S)on 11-27-2021 HBV surface Ag Ql (S) Negative Negative [facility] HEP B CORE AB TOTALon 2021 HBV core Ab Ql (S) Negative Negative [facility] HEP B SURF AB QUALon 022 HBV surface Ab Ql (S) Positive Abnormal Negative [facility] HEP C AB IA W/CONF SCRNon HCV Ab Ql (S) Negative Negative [facility] CBC W Auto Differential pane l (Bld)on 04-25-2022 Abs Immature Gran <0.03 <0.10 k/uL [facility] Basophils (Bld) [#/Vol] 0.03 10*3/uL <0.11 k/uL [facility] Basophils/100 WBC (Bld) 0.6 % [facility] Differential cell count method Nom (Bld) Auto [facility] Eosinophils (Bld) [#/Vol] 0.10 10*3/uL <0.46 k/uL [facility] Eosinophils/100 WBC (Bld) 2.0 % [facility] Erythrocyte distribution width (RBC) [Ratio] 13.9 % 11.5 - 15.0 % [facility] Hematocrit (Bld) [Volume fraction] 38.5 % 36.0 - 46.0 % [facility] Hemoglobin (Bld) [Mass/Vol] 12.0 g/dL 11.5 - 15.5 g/dL [facility] Immature Gran % 0.2 % [facility] Lymphocytes (Bld) [#/Vol] 1.54 10*3/uL 1.00 - 4.00 k/uL [facility] Lymphocytes/100 WBC (Bld) 30.2 % [facility] MCH (RBC) [Entitic mass] 25.4 pg Low 26.0 - 34.0 pg [facility] MCHC (RBC) [Mass/Vol] 31.2 g/dL 30.5 - 36.0 g/dL [facility] MCV (RBC) [Entitic vol] 81.4 fL 80.0 - 100.0 fL [facility] Monocytes (Bld) [#/Vol] 0.66 10*3/uL <0.87 k/uL [facility] Monocytes/100 WBC (Bld) 12.9 % [facility] Neutrophils (Bld) [#/Vol] 2.76 10*3/uL 1.45 - 7.50 k/uL [facility] Neutrophils/100 WBC (Bld) 54.1 % [facility] Nucleated RBC (Bld) [#/Vol] 10*3/uL <0.01 k/uL [facility] Nucleated RBC/100 WBC (Bld) [Ratio] 0.0 /100 WBC [facility] Platelet mean volume (Bld) [Entitic vol] 13.5 fL High 9.0 - 12.7 fL [facility] Platelets (Bld) [#/Vol] 168 10*3/uL 150 - 400 k/uL [facility] RBC (Bld) [#/Vol] 4.73 10*6/uL 3.90 - 5.2 0 m/uL [facility] WBC (Bld) [#/Vol] 5.10 10*3/uL 3.70 - 11. 00 k/uL [facility] URINALYSIS, REFLEX MICROSCOP ICon 04-25-2022 Bilirubin Ql (U) Negative Negative [facility] Clarity (Unsp spec) Clear Clear [facility] Color (U) Light Yellow Yellow [facility] Glucose Test strip (U) [Mass/Vol] Negative Negative [facility] Hemoglobin Ql (U) Negative Negative [facility] Ketones Ql (U) Negative Negative [facility] Leukocyte esterase Test strip Ql (U) Negative Negative [facility] Nitrite Ql (U) Negative Negative [facility] pH (U) 6.0 [pH] 5.0 - 8.0 [facility] Protein (U) [Mass/Vol] Negative Negative [facility] Specific gravity (U) [Rel density] 1.021 1.005 - 1.030 [facility] Urobilinogen Ql (U) Negative Negative [facility] CNPNon 11-13-2021 CNPN Telephone (NEADFV) ----- JUANSMOOTH ([id number]) 1985 F Date Time Provider Department 11/13/21 [...] (FLONASE) 50 mcg/actuation nasal spray Use 1 [place] in each nostril once daily. - MAGNESIUM ORAL Take 1 tablet by mouth twice daily. - Nmsauxxv-Or-Naf-Fe-FA ( VITAMIN) tab Take 1 tablet by [...] Status:Closed by AUDIE GABRIEL on 11/13/21 [facility] Christiano 07-24-2021 CNPN Telephone (NEADFV) ----- SMOOTH MARTINEZ F ([id number]) 1985 F Date Time Provider Department 07/24/21 MICHELLE GARCIA NERUSSELLFV During your visit today, we recorded the following information about you: Hanna Page Lopez 07/24/2021 12:34 PM Signed Patient called stating she is scheduled for an Ocrevus infusion on August 15, but will be out of state in [place]. She would like to have the infusion done there at [facility]. Also,she has new insurance as of May and will need to get the Ocrevus approved through her new insurance ([employer]- ). For questions call patient at [phone] Alexandra Benjamin [facility] 07/24/2021 1:21 PM Signed Patient called back with a phone number of [phone] for [facility]. The phone # her [employer] is [phone]. Audie Gabriel RN 07/24/2021 1:51 PM Signed [...] (FLONASE) 50 mcg/actuation nasal spray Use 1 [place] in each nostril once daily. - MAGNESIUM ORAL Take 1 tablet by mouth twice daily. - Xktyobpn-El-Pka-Fe-FA ( VITAMIN) tab Take 1 tablet by [...] Status:Closed by AUDIE GABRIEL on 07/24/21 Normal [facility] Telephone Encounteron 2020 Collection Analyst Authentication Interface Message Text Patient was identified by name and date of . Patient given message, patient denied additional questions. ----- Message from Sofy Pandya MD sent at 03/22/2021 12:34 PM EDT ----- Please notify neg HPV with ascus pap, OK to f/u in [address] Sofy Pandya Normal [facility] Telephone Encounteron 2020 Collection Analyst Authentication Interface Message Text ----- Message from Sofy Pandya MD sent at 03/08/2021 2:28 PM EDT ----- Please notify ok Normal [facility] GC/CHLAMYDIA/TRICHOMONAS AMP LIFICATIONon 03-07-2021 GC/CHLAMYDIA/TRICHOMO BERTIN AMPLIFICATION CHLAMYDIA AMPLIFICATION: Negative GC AMPLIFICATION: Negative TRICHOMONAS AMPLIFICATION: Negative Normal Negative [facility] Comment on above: Order Comment: This test is performed using an automated nucleic acid amplification assay ([employer] Performed By: #### G CT #### [facility] [address] [place] [address] [place], [place] HEPATITIS C ANTIBODYon 03-07 HCV Non-Reactive Normal Nonreactive [facility] Comment on above: Performed By: #### H CV #### [facility] [address] [place] [address], HIV1 HIV2 AGAB SCRNon 2020 HIV AG-AB SCREEN Non-Reactive Normal Non-Reactive [facility] Comment on above: Order Comment: HIV Information: ???[place] Rev. code 3701.243(E): This information has been [...] hiv2 agab scrn #### [facility] [address] [place] [address], HUMAN PAPILLOMA VIRUSon 02-09 HPV HIGH RISK Negative Normal Negative [facility] Comment on above: Order Comment: This test is performed using an automated nucleic acid amplification assay ([employer] [place], [place]). This assay detects RNA of HPV types 16,18,31,33,35,39,45,51,52,56,58,59,66 and 68 in cervical specimens. Result Comment: A ne gative result does not exclude the possibility of low levels of infection or sampling error. 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 No LMP recorded. Periods are regular [...] Abnormal Pap smear of cervix 2007- in [place]. had LEEP. no abn pap since * [...] Intravenous Push route. * Cholecalciferol 1.25 MG (57175 UT) TABS Take 50,000 Units by mouth once weekly. * Nglkgbat-Fzt-Ei-FA (Mynatal) CAPS Take by mouth. 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 Normal [facility] Collection Analyst Authentication Interface Message Text Patient at risk [...] bandage applied. Site appears normal. Normal [facility] Filter Paper Leadon -24-20 20 Lead <2 Normal <5 [facility] Lead Interpretation Normal [facility] Comment on above: Result Comment: Occu pationally exposed adults lead >40 requires medical followup. This test was developed and its performance characteristics determined by [facility]. It has not been cleared or approved by the U.S. Food and Drug Administration. The FDA has determined that such clearance or approval is not necessary. This test is used for clinical purposes. It should not be regarded as investigational or for research. Type of Puncture Capillary Specimen Normal [facility] Vital Signs Date Time Vital Sign Value Performing Clinician Facility 03-04-2024 13:00-0400 Body height 168.[address] MD Work Phone: [facility] 03-04-2024 13:00-0400 Body mass index (BMI) [Ratio] 19.52 kg/m2 Janice Lane MD Work Phone: [facility] 03-04-2024 13:00-0400 Body temperature 98.1 [degF] Janice Lane MD Work Phone: [facility] 03-04-2024 13:00-0400 Body weight 55.[address] MD Work Phone: [facility] 03-04-2024 13:00-0400 Diastolic blood pressure 66 mm[Hg] Janice Lane MD Work Phone: [facility] 03-04-2024 13:00-0400 Heart rate 95 /min Janice Lane MD Work Phone: [facility] 03-04-2024 13:00-0400 SaO2% (BldA) [Mass fraction] 100 % Janice Lane MD Work Phone: [facility] [facility] 03-04-2024 13:00-0400 Systolic blood pressure 101 mm[Hg] Janice Lane MD Work Phone: [facility] 12-25-2023 10:54-0500 Body weight 56.8 kg Tor Hernandez APRN.NATIONAL SALES ASSOCIATE Work Phone: [facility] 12-25-2023 10:54-0500 Diastolic blood pressure 67 mm[Hg] Tor Hernandez APRN.NATIONAL SALES ASSOCIATE Work Phone: [facility] 12-25-2023 10:54-0500 Heart rate 87 /min Tor Hernandez APRN.NATIONAL SALES ASSOCIATE Work Phone: [facility] 12-25-2023 10:54-0500 Systolic blood pressure 95 mm[Hg] Tor Hernandez APRN.NATIONAL SALES ASSOCIATE Work Phone: [facility] 12-23-2023 13:34-0500 Body mass index (BMI) [Ratio] 20.13 kg/m2 Gael Howard DO Work Phone: [facility] 12-23-2023 13:34-0500 Body temperature 98.91 [degF] Gael Howard DO Work Phone: [facility] 12-23-2023 13:34-0500 Body weight 57.42 kg Gael Howard DO Work Phone: [facility] 12-23-2023 13:34-0500 Diastolic blood pressure 70 mm[Hg] Gael Howard DO Work Phone: [facility] 12-23-2023 13:34-0500 Heart rate 88 /min Gael Howard DO Work Phone: [facility] 12-23-2023 13:34-0500 SaO2% (BldA) [Mass fraction] 99 % Gael Howard DO Work Phone: [facility] 12-23-2023 13:34-0500 Systolic blood pressure 120 mm[Hg] Gael Howard DO Work Phone: [facility] 09-25-2023 13:25-0500 Body temperature 98.29 [degF] Chair Andrew Work Phone: [facility] 09-25-2023 13:25-0500 Diastolic blood pressure 72 mm[Hg] Chair Andrew Work Phone: [facility] 09-25-2023 13:25-0500 Heart rate 69 /min Chair [place] Work Phone: [facility] 09-25-2023 13:25-0500 Respiratory rate 16 /min Chair Andrew Work Phone: [facility] 09-25-2023 13:25-0500 SaO2% (BldA) [Mass fraction] 99 % Chair Andrew Work Phone: [facility] 09-25-2023 13:25-0500 Systolic blood pressure 102 mm[Hg] Chair Andrew Work Phone: [facility] 09-13-2023 10:36-0400 Body weight 56.7 kg Tor Ellingtonler LIFT ELECTRICIAN.NATIONAL SALES ASSOCIATE Work Phone: [facility] 07-23-2023 10:36-0400 Diastolic blood pressure 62 mm[Hg] Torsparkle Hernandez LIFT ELECTRICIAN.NATIONAL SALES ASSOCIATE Work Phone: [facility] 07-23-2023 10:36-0400 Heart rate 69 /min Tor Hernandez LIFT ELECTRICIAN.NATIONAL SALES ASSOCIATE Work Phone: [facility] 07-23-2023 10:36-0400 Systolic blood pressure 94 mm[Hg] Tor Hernandez LIFT ELECTRICIAN.NATIONAL SALES ASSOCIATE Work Phone: [facility] 02-12-2023 11:27-0400 Body height 167.[address] MD Work Phone: [facility] 02-12-2023 11:27-0400 Body weight 55.[address] MD Work Phone: [facility] 02-12-2023 11:27-0400 Diastolic blood pressure 67 mm[Hg] Janice Lane MD Work Phone: [facility] 02-12-2023 11:27-0400 Heart rate 60 /min Janice Lane MD Work Phone: [facility] 02-12-2023 11:27-0400 SaO2% (BldA) [Mass fraction] 98 % Janice Lane MD Work Phone: [facility] 02-12-2023 11:27-0400 Systolic blood pressure 107 mm[Hg] Janice Lane MD Work Phone: [facility] 01-17-2023 10:49-0500 Body weight 56.52 kg Jose Raul Santana MD Work Phone: [facility] 01-17-2023 10:49-0500 Diastolic blood pressure 73 mm[Hg] Jose Raul Santana MD Work Phone: [facility] 01-17-2023 10:49-0500 Heart rate 113 /min Jose Raul Santana MD Work Phone: [facility] 01-17-2023 10:49-0500 Systolic blood pressure 111 mm[Hg] Jose Raul Santana MD Work Phone: [facility] 10-28-2022 00:35-0500 Body temperature 100.1 [degF] MD Janice Lane Work Phone: [facility] 10-28-2022 00:35-0500 Diastolic blood pressure 73 mm[Hg] MD Janice Lane Work Phone: [facility] 10-28-2022 00:35-0500 Heart rate 100 /min MD Janice Lane Work Phone: [facility] 10-28-2022 00:35-0500 SaO2% (BldA) [Mass fraction] 98 % MD Janice Lane Work Phone: [facility] 10-28-2022 00:35-0500 Systolic blood pressure 112 mm[Hg] MD Janice Lane Work Phone: [facility] 10-27-2022 23:30-0500 Respiratory rate 16 /min MD Janice Lane Work Phone: [facility] 10-27-2022 21:08-0500 Body height 167.[address] Work Phone: [facility] 10-27-2022 21:08-0500 Body weight 62.[address] Work Phone: [facility] 09-27-2022 13:45-0500 Body temperature 98.8 [degF] Chair Andrew Work Phone: [facility] 09-27-2022 13:45-0500 Diastolic blood pressure 65 mm[Hg] Chair [place] Work Phone: [facility] 09-27-2022 13:45-0500 Heart rate 101 /min Chair [place] Work Phone: [facility] 09-27-2022 13:45-0500 Respiratory rate 16 /min Chair Andrwe Work Phone: [facility] 09-27-2022 13:45-0500 SaO2% (BldA) [Mass fraction] 99 % Chair Andrew Work Phone: [facility] 09-27-2022 13:45-0500 Systolic blood pressure 101 mm[Hg] Chair Andrew Work Phone: [facility] 08-08-2022 07:54-0400 Body weight 61.42 kg Jose Raul Santana MD Work Phone: [facility] 08-08-2022 07:54-0400 Diastolic blood pressure 65 mm[Hg] Jose Raul Santana MD Work Phone: [facility] 08-08-2022 07:54-0400 Heart rate 82 /min Jose Raul Santana MD Work Phone: [facility] 08-08-2022 07:54-0400 Systolic blood pressure 106 mm[Hg] Jose Raul Santana MD Work Phone: [facility] 05-30-2022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 (Approximate), Expires: 01/24/2024 [facility] Work Phone: Comment on above: Expected: 10/25/2023 (Approximate), Expires: 01/24/2024 Start: 09-25-2023 End: 12-25-2023 CD19 ABSOLUTE COUNT [facility] Work Phone: Comment on above: Expected: 09/25/2023 , Expires: 12/25/2023 Start: 09-23-2023 End: 12-23-2023 Choriogonadotropin.beta subunit [Units/volume] in Serum or Plasma HCG QUANTITATIVE Lab Routine Multiple sclerosis ([facility]) Expected: 09/23/2023, Expires: 12/23/2023 [facility] Work Phone: Comment on above: Expected: 09/23/2023 , Expires: 12/23/2023 Start: 09-23-2023 End: 12-23-2023 IgG [Mass/volume] in Serum or Plasma IGG Lab Routine Multiple sclerosis (HCC) Expected: 09/23/2023, Expires: 12/23/2023 [facility] Work Phone: Comment on above: Expected: 09/23/2023 , Expires: 12/23/2023 Start: 09-23-2023 End: 12-23-2023 IgM [Mass/volume] in Serum or Plasma IGM Lab Routine Multiple sclerosis (HCC) Expected: 09/23/2023, Expires: 12/23/2023 [facility] Work Phone: Comment on above: Expected: 09/23/2023 , Expires: 12/23/2023 Start: 07-11-2023 Covid-19 Vaccine ( season) Covid-19 Vaccine () [facility] Start: 07-11-2023 Influenza vaccination [facility] Start: 02-12-2023 End: 04-14-2023 CBC W Auto Differential panel - Blood [facility] Work Phone: Comment on above: Expected: 02/12/2023 , Expires: 04/14/2023 Start: 02-12-2023 End: 04-14-2023 Ferritin [Mass/volume] in Serum or Plasma [facility] Work Phone: Comment on above: Expected: 02/12/2023 , Expires: 04/14/2023 Start: 02-12-2023 End: 02-26-2023 Influenza virus A and B RNA and SARS-CoV-2 (COVID-19) N gene panel - Respiratory specimen by DEIRDRE with probe detection [facility] Work Phone: Comment on above: Expected: 02/12/2023 , Expires: 02/26/2023 Start: 02-12-2023 End: 04-14-2023 Iron and Iron binding capacity panel - Serum or Plasma [facility] Work Phone: Comment on above: Expected: 02/12/2023 , Expires: 04/14/2023 Start: 02-12-2023 End: 02-13-2024 PELVIC US WHI PELVIC US WHI Anc Imaging Routine Vaginal bleeding Expected: 02/12/2023, Expires: 02/13/2024 [facility] Work Phone: Comment on above: Expected: 02/12/2023 , Expires: 02/13/2024 Start: 02-05-2023 End: 12-07-2023 Mri brain brain stem w/o w/contrast material MRI BRAIN WO/W IVCON Radiology Routine Multiple sclerosis (HCC) Expected: 02/05/2023 (Approximate), Expires: 12/07/2023 [facility] Work Phone: Comment on above: Expected: 02/05/2023 (Approximate), Expires: 12/07/2023 Start: 02-05-2023 End: 12-07-2023 Mri spinal canal cervical w/o & w/contr matrl MRI CERVICAL SPINE WO/W IVCON Radiology Routine Multiple sclerosis (HCC) Expected: 02/05/2023 (Approximate), Expires: 12/07/2023 [facility] Work Phone: Comment on above: Expected: 02/05/2023 (Approximate), Expires: 12/07/2023 Start: 01-17-2023 End: 03-19-2023 25-hydroxyvitamin D3 [Mass/volume] in Serum or Plasma [facility] Work Phone: Comment on above: Expected: 01/17/2023 , Expires: 03/19/2023 Start: 01-17-2023 End: 03-19-2023 Cobalamin (Vitamin B12) [Mass/volume] in Serum or Plasma [facility] Work Phone: Comment on above: Expected: 01/17/2023 , Expires: 03/19/2023 Start: 01-17-2023 End: 03-19-2023 IgG [Mass/volume] in Serum or Plasma [facility] Work Phone: Comment on above: Expected: 01/17/2023 , Expires: 03/19/2023 Start: 01-17-2023 End: 03-19-2023 IgM [Mass/volume] in Serum or Plasma [facility] Work Phone: Comment on above: Expected: 01/17/2023 , Expires: 03/19/2023 Start: 01-17-2023 End: 03-19-2023 Thyrotropin [Units/volume] in Serum or Plasma [facility] Work Phone: Comment on above: Expected: 01/17/2023 , Expires: 03/19/2023 Start: 11-10-2022 DEPRESSION ASSESSMENT DEPRESSION ASS ESSMENT [facility] Start: 10-27-2022 Plain chest X-ray XR chest 1V portab le [facility] Start: 10-27-2022 XR Chest Single view [facility] Start: 07-11-2022 Influenza vaccination [facility] Start: 04-25-2022 End: 06-25-2022 Bacteria identified in Urine by Culture [facility] Work Phone: Comment on above: Expected: 04/25/2022 , Expires: 06/25/2022 Start: 04-24-2022 End: 06-24-2022 25-hydroxyvitamin D3 [Mass/volume] in Serum or Plasma VITAMIN D 25 HYDROXY Lab Routine Vitamin D deficiency Expected: 04/24/2022, Expires: 06/24/2022 [facility] Work Phone: Comment on above: Expected: 04/24/2022 , Expires: 06/24/2022 Start: 04-24-2022 End: 06-24-2022 Comprehensive metabolic 2000 panel - Serum or Plasma COMP METABOLIC PANEL Lab Routine Multiple sclerosis ([facility]) Expected: 04/24/2022, Expires: 06/24/2022 [facility] Work Phone: Comment on above: Expected: 04/24/2022 , Expires: 06/24/2022 Start: 04-24-2022 End: 06-24-2022 IgG [Mass/volume] in Serum or Plasma IGG Lab Routine Multiple sclerosis ([facility]) Expected: 04/24/2022, Expires: 06/24/2022 [facility] Work Phone: Comment on above: Expected: 04/24/2022 , Expires: 06/24/2022 Start: 04-24-2022 End: 06-24-2022 IgM [Mass/volume] in Serum or Plasma IGM Lab Routine Multiple sclerosis ([facility]) Expected: 04/24/2022, Expires: 06/24/2022 [facility] Work Phone: Comment on above: Expected: 04/24/2022 , Expires: 06/24/2022 Start: 04-24-2022 End: 06-24-2022 VARICELLA ZOSTER IGG VARICELLA ZOSTER IGG Lab Routine Multiple sclerosis (HCC) Expected: 04/24/2022, Expires: 06/24/2022 [facility] Work Phone: Comment on above: Expected: 04/24/2022 , Expires: 06/24/2022 Start: 02-08-2022 Adult depression screening assessment DEPRESSION SCREENING [facility] Start: 11-10-2021 DEPRESSION ASSESSMENT DEPRESSION ASS ESSMENT [facility] Start: 01-05-2020 Echocardiography Echocardiogram MG-C [facility] [address] Work Phone: Start: 2015 HPV TESTING HPV TESTING [facility] Start: 2015 Screening for malign ant neoplasm of cervix HPV Testing [facility] Start: 1990 COVID-19 VACCINE (#1) COVID-19 VACCI NE (#1) [facility] Start: 1990 COVID-19 VACCINE (1) COVID-19 VACCIN E (1) [facility] Start: 02-01-1986 COVID-19 VACCINE (#1) COVID-19 VACCI NE (#1) [facility] Start: 1985 HEPATITIS B (1 of 3 - 3-dose series) HEPATITIS B (1 of 3 - 3-dose series) [facility] 25-hydroxyvitamin D3 [Mass/volume] in Serum or Plasma VITAMIN D 25 HYDROXY Lab Routine Vitamin D deficiency 04/25/2022 11:12 AM EDT [facility] Work Phone: Bacteria identified in Genital specimen by Aerobe culture [facility] Work Phone: Comprehensive metabo lic 2000 panel - Serum or Plasma COMP METABOLIC PANEL Lab Routine Multiple sclerosis (HCC) 04/25/2022 11:12 AM EDT [facility] Work Phone: End: 04-25-2023 EPIL EEG ROUTINE EPIL EEG ROUTINE NEUROLOGY Routine Multiple sclerosis (HCC) 1 Occurrences starting 04/25/2022 until 04/25/2023 [facility] Work Phone: Comment on above: 1 Occurrences starti ng 04/25/2022 until 04/25/2023 Glucose measurement estimated from glycated hemoglobin [facility] IgG [Mass/volume] in Serum or Plasma IGG Lab Routine Multiple sclerosis ([facility]) 04/25/2022 11:12 AM EDT [facility] Work Phone: IgM [Mass/volume] in Serum or Plasma IGM Lab Routine Multiple sclerosis ([facility]) 04/25/2022 11:12 AM EDT [facility] Work Phone: End: 01-23-2025 MR Thoracic spine WO and W contrast IV MRI THORACIC SPINE WO/W IVCON Radiology Routine Multiple sclerosis ([facility]) 1 Occurrences starting 12/25/2023 until 01/23/2025 [facility] Work Phone: Comment on above: 1 Occurrences starti ng 12/25/2023 until 01/23/2025 OT PLAN OF CARE CERTIFICATION OT PLAN OF CARE CERTIFICATION Procedures Routine Multiple sclerosis (HCC) Abnormal antibody titer Neurogenic bladder Lack of coordination Ordered: 05/30/2022 [facility] Work Phone: Comment on above: Ordered: 05/30/2022 Patient Education [facility] Work Phone: Patient referral [facility] Work Phone: PT PLAN OF CARE CERTIFICATION PT PLAN OF CARE CERTIFICATION Procedures Routine Abnormality of gait Multiple sclerosis (HCC) Ordered: 07/22/2022 [facility] Work Phone: Comment on above: Ordered: 07/22/2022 SPEECH PLAN OF CARE CERTIFICATION SPEECH PLAN OF CARE CERTIFICATION Procedures Routine Multiple sclerosis (HCC) Cognitive communication deficit Ordered: 05/30/2022 [facility] Work Phone: Comment on above: Ordered: 05/30/2022 SPEECH PLAN OF CARE CERTIFICATION SPEECH PLAN OF CARE CERTIFICATION Procedures Routine Cognitive communication deficit Ordered: 07/22/2022 [facility] Work Phone: Comment on above: Ordered: 07/22/2022 VARICELLA ZOSTER IGG VARICELLA Z YARELIS IGG Lab Routine Multiple sclerosis ([facility]) 04/25/2022 11:12 AM EDT [facility] Work Phone: End: 04-03-2025 XR Cervical spine AP and Lateral and oblique XR CERV OTHER 4V AP/LAT/OBL Radiology Routine Neck pain 1 Occurrences starting 03/04/2024 until 04/03/2025 [facility] Work Phone: Comment on above: 1 Occurrences starti ng 03/04/2024 until 04/03/2025 XR Cervical spine AP and Lateral and oblique XR CERV OTHER 4V AP/LAT/OBL Radiology Routine Neck pain 03/04/2024 2:13 PM EDT [facility] End: 04-03-2025 XR Lumbar spine 3 Views XR LUMBAR GENERAL 3V AP/LAT/L5-S1 Radiology Routine Chronic midline low back pain without sciatica 1 Occurrences starting 03/04/2024 until 04/03/2025 [facility] Comment on above: 1 Occurrences starti ng 03/04/2024 until 04/03/2025 XR Lumbar spine 3 Views XR LUMBA R GENERAL 3V AP/LAT/L5-S1 Radiology Routine Chronic midline low back pain without sciatica 03/04/2024 2:12 PM EDT [facility] LR-H[place]qfdfvju[address] [address] Work Phone: [facility] NEGATED: Highlighted row has been ruled out! Planned Goals not documented [facility] [address] Work Phone: Immunizations Immunization Date Immunization Notes Care Provider Jacob bush 11-20-2023 influenza virus vaccine, unspecified formulation [place] [facility] 01-15-2022 tetanus toxoid, redu minor diphtheria toxoid, and acellular pertussis vaccine, adsorbed Michelle Garcia MD Work Phone: [facility] Payers Date Payer Category Payer Self-pay [id number] 2023 Private Health Insurance [id number] 2022 Unknown ANTHEM BLUE CROS S AND BLUE SHIELD ANTHEM MEDIBLUE HMO [id number] 2022-Present [phone] [address] [place] [address] HMO [id number] 2022 Unknown [id number] 2021 Medicare [employer] BY [employer]LYNN O SNP [id number] 2021-Present [phone] [address] [place] [address] O [id number] 2021 Medicare [id number] 2020 Private Health Insurance [id number] 2020 Medicaid MEDICAID [facility] MEDICAID [id number] 2020-Present [phone] [address] [place] [address] Medicaid [id number] 2020 Medicaid [id number] 2020 Medicaid [id number] 1985 Unknown [id number] 32 1985 Unknown [id number] 2.16.840.1.369176.3.579.2.1 259 1985 Unknown [id number] 2.16.840.1.858238.3.579.2.1 259 1985 Unknown [id number] 2.16.840.1.217889.3.579.2.1 259 1985 Unknown [id number] 2.16.840.1.554053.3.579.2.1 259 1985 Unknown [id number] 2.16.840.1.124593.3.579.2.1 259 1985 Unknown [id number] 2.16.840.1.444252.3.579.2.1 259 1985 Unknown [id number] 2.16.840.1.548344.3.579.2.1 259 1985 Unknown [id number] 2.16.840.1.244433.3.579.2.1 259 1985 Unknown [id number] 2.16.840.1.607192.3.579.2.1 259 1985 Unknown [id number] 2.16.840.1.753548.3.579.2.1 259 1985 Unknown [id number] 2.16.840.1.063547.3.579.2.1 259 Medicaid [id number] Medicare [id number] Unknown [id number] [id number] 31 Unknown [id number] 2.16.840.1.899297.3.579.2.5 31 Unknown [id number] 2.16.840.1.925300.3.579.2.5 31 Unknown [id number] 31 Social History Date Type Detail Facility Tobacco smoking stat us NHIS Unknown if ever smoked [facility] Start: 1985 Sex Assigned At Female C [facility] Start: 11-15-2019 End: 07-17-2023 Tobacco smoking status NHIS Never smoked tobacco [facility] Start: 11-15-2019 End: 07-17-2023 Tobacco use and exposure Smokeless tobacco non-user [facility] Start: 01-15-2022 End: 03-04-2024 Alcohol intake Ex-drinker (finding) [facility] Start: 11-15-2019 History SDOH Alcohol Comment occas [facility] Start: 03-16-2022 End: 08-08-2022 Exposure to SARS-CoV-2 (event) Not sure [facility] Start: 04-25-2022 Education 17 [facility] Start: 12-16-2022 History SDOH Alcohol Frequency 1 [facility] Start: 12-16-2022 History SDOH Alcohol Std Drinks 0 [facility] Start: 12-16-2022 History SDOH Social Connections Phone 4 [facility] Start: 12-16-2022 History SDOH Social Connections Membership 2 [facility] Start: 12-16-2022 History SDOH Social Connections Living 7 [facility] Start: 12-16-2022 History SDOH Physica l Activity MPS 3 [facility] Start: 12-16-2022 History SDOH Stress 5 [facility] Start: 12-16-2022 End: 07-17-2023 History of Social function [facility] Start: 12-16-2022 End: 07-17-2023 Social connection and isolation panel [facility] [facility] Do you belong to any clubs or organizations such as denominational groups, unions, fraternal or athletic groups, or school groups? No [facility] Are you now , , , , never or living with a partner? Never [facility] How often to you hav e a drink containing alcohol? Never [facility] How many standard drinks containing alcohol do you have on a typical day? Patient does not drink [facility] How hard is it for y ou to pay for the very basics like food, housing, medical care, and heating Somewhat hard [facility] Do you feel stress - tense, restless, nervous, or anxious, or unable to sleep at night because your mind is troubled all the time - these days [OSQ] Very much [facility] (I/We) worried wheth er (my/our) food would run out before (I/we) got money to buy more. Often true [facility] Start: 12-23-2020 Gender identity Identifies as female gender (finding) [facility] Start: 12-23-2020 Sexual orientation Heterosexual (brandin whalen) [facility] History of tobacco use Passive smoker [facility] Start: 12-11-2023 End: 12-23-2023 Alcohol intake Lifetime non-drinker (finding) [facility] NEGATED: Highlighted row - - SZ-Fmzrqmqukk-Hxceo ake 2300 Work Phone: Goals Date Patient Goal Desired Activity /State Personal health goal Personal health goal Functional Status Date Assessment Result Facility NEGATED: Highlighted row Functional performance Functional status health issues are not documented Disease YH-Woqvjbjiul-Aywba ake 2300 Work Phone: Mental Status Date Assessment Result Facility NEGATED: Highlighted row Cognitive function [Interpretation] Cognitive status health issues are not documented Disease QD-Qbbjqvmtgq-Kmddq Tackk 2300 Work Phone: Clinical Notes 04-17-2021 to 05-27-2024 Jus Saucedo - 05/24/2024 10:40 AM EDJazmine Dougherty - 04/26/2024 2:50 PM EDTRoss ([employer]), [place] - 03/31/2024 10:54 AM EDTQuercioljoshua ([employer]), [place] - 03/31/2024 10:54 AM EDT Note Date & Type Note Facility 05-27-2024 Note HNO ID: [id number] Author: IBAN LAZO, PhD Service: ? Author Type: Psychologist Type: Progress Notes Filed: 05/27/2024 18:02 Note Text: Behavioral Sleep Medicine Follow up Iban Lazo, PhD I have communicated my name and active licensure. The patient's identity and physical location were verified at the time of this visit. Either the patient or their legal promotions representative has been informed of the risks and benefits of -- and alternatives to -- treatment through a remote evaluation and consents to proceed with the evaluation remotely. Contact Method: Zoom Patient Confirmed Address: Located in [facility] Pt was in a vehicle with her home health aide as the straddle bug driver, pt was passenger, pt gave consent to conduct visit in presence of home health aide. 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 Patient Confirmed Telephone #: [phone] Time: 33 minutes Individual Psychotherapy Session # 2 TREATMENT MODALITIES: CBTI Motivational Interviewing SUBJECTIVE/OBJECTIVE: Patient update: Pt reported that she received the actigraphy watch in the mail yesterday - plans to wear it beginning tonight Was put on pelvic rest for the next 2 weeks. Met with providers regarding episodes of passing out and was told to increase electrolytes and protein levels. She is using liquid IV packets and eating more protein (eggs, cheese, protein bars) with benefit. Pt reported that she has been making bad decisions, stating that she made a big purchase - she bought a vehicle not in her burns range- [employer]iel [employer]. She stated that she does not know why she purchased the car and now her car payment is double which she cannot necessarily afford. She tried to return the car to the dealership but was told this was not possible. She stated that she made another bad decision but can't remember what it was. Pt noted that she continues to struggle with memory, not remembering conversations with others at times. For instance, she recently learned that she will no longer be receiving home health aide services through the bord of disability. She stated that she was told she had a conversation about this with the company providing aide but does not remember the conversation and was surprised to learn she is losing services at the end of this month. Pt noted that her aide helps with errands, groceries, grooming, driving, etc. Pt reported that she was driving the other day but felt drowsy and pulled over to rest for 1 hour. Advised pt to avoid driving if sleepy/drowsy and to line puller to a safe space to rest if she does find herself drowsy/sleepy while driving. Pt noted that her AUXILIARY ENGINEER stated she could take Unisom to sleep during - asked pt to wait to take this medication until after she completes actigraphy testing as we want to get a sense of her baseline sleep rhythms. Pt verbalized understanding. Pt reported that sleep quality has been the same. Pt stated that she is working with a therapist at [facility] named Aravind Mazin- she reported that they most recently have talked about helping her to stop shopping and learning how to say no to people. Pt provided verbal consent for this provider to contact Aravind Retana to discuss pt's case to coordinate care and provided his contact phone number: [phone] Discussed the following plan with patient Complete actigraphy testing Complete sleep diaries At next follow up visit will review sleep diaries (and actigraphy data if available) and make a recommendation for a sleep prescription. Will also incorporate morning bright light therapy at that time. Update on medication use: none Behavioral changes made since last session: none Pt did not complete sleep logs, sleep quality verbally reviewed in session. ASSESSMENT: Insomnia Severity Index Total Score: 25 [22-28 = Clinical insomnia (severe)] 03/19/2024 04/13/2024 05/23/2024 Insomnia Severity Index Score 24 24 25 PHQ PHQ-9 Score: 12 [10-14 = Moderate Depression] not at all on item #9 03/19/2024 04/13/2024 05/23/2024 PHQ-9 Score 19 19 19 12 ABHILASH: not completed today ABHILASH-7 Total Score: 13 [10-14 = Moderate Anxiety] 04/02/2023 03/19/2024 04/13/2024 ABHILASH - 7 SCORES Score 6 13 13 DIAGNOSIS: Chronic Insomnia Adjustment disorder with mixed anxiety and depressed mood Trauma and stressor-related disorder RLS Multiple sclerosis PROGRESS TO DATE: Network Infrastructure Architect Progress: Condition at intake Short Term Condition: Condition at intake GOALS/OBJECTIVES/INTERVENTIONS: 1. Continue with CBTI 2. Begin tracking sleep, medication use, and anything that may have impacted sleep (+/-) on sleep logs. 3. Engage in stimulus control (e.g., out of bed if not asleep for 20-30+ minutes, engage in a pleasant activity until feel sleepy again, only go to bed when sleepy) 4. Complete actigraphy testing. OK to start Uniso (more content not included)... [facility] 05-24-2024 History of Present illness Narrative [facility] Refill Assessment Medication(s): Glatiramer Patient's current medication list and adherence status to current therapy were reviewed by Specialty Pharmacy clinical pharmacist to identify any new drug interactions or non-compliance to therapy. Therapy continues to be appropriate for disease, patient response, and medical condition. Verification of therapeutic benefit and effectiveness with current therapy was completed. Adverse events, barriers in adherence, and side effects were assessed and addressed if applicable. Will proceed with refill with no changes in therapy - patient progressing towards achieving therapeutic goals based on medication-specific laboratory parameters, disease state markers and outcomes. Alteration Worker Assessment Patient confirmed: Yes Med/dose confirmed: Yes Supplies needed: Alcohol swabs Missed doses: No Estimated days supply on hand: 10 Next cycle/dose due: 05/26/24 Copay amount: 0 Delivery method: FedEx Signature required: Waived on patient request Delivery address: [address] [place] [id number] Delivery date: 06/01/24 Questions or concerns for the pharmacist?: No Did you have any side effects believed to be related to this medication, that resulted in hospitalization?: No Current Outpatient Medications on File Prior to Visit Medication Sig glatiramer (COPAXONE) 40 mg/mL injection Inject 40 mg subcutaneously every Friday, Friday, and Friday. magnesium oxide (MAG-OX) 400 mg (241.3 mg magnesium) tablet Take 1 tablet by mouth daily at bedtime. polyethylene glycol 3350 (MIRALAX) 17 gram/dose powder Take 17 g by mouth once daily. Dissolve dose in 4 - 8 ounces of liquid and take as directed. cholecalciferol (VITAMIN D-3) 5,000 unit tab Take 1 tablet by mouth once daily. ketoconazole (NIZORAL) 2 % shampoo 2-3 times weekly as body wash mirtazapine (REMERON) 15 mg tablet Take 1 [...] tablet by mouth two times a day. Norethindrone, Contraceptive, (JENCYCLA) 0.35 mg tablet Take 1 tablet by mouth every morning. (Patient not taking: Reported on 03/04/2024) ketoconazole (NIZORAL) 2 % cream Apply to affected area once daily. Apply qd tiZANidine (ZANAFLEX) 2 mg tablet Take 1 [...] (FLONASE) 50 mcg/actuation nasal spray Use 1 [place] in each nostril once daily. No current facility-administered medications on file prior to visit. [facility] Pharm[facility] Visit Assessment - Neurology: Assessment to use: Refill Vaccination Assessment: Date of influenza vaccination reminder: 04/08/2024 Date of most recent vaccination assessment: 04/08/2024 Treatment Plan Information: Treatment Plan Information: Copazone/Glatopa/glatiramer Refrigerated, take out 30- 45 minutes before injection. Can be left at controlled room temp for up to one month (59-86 deg F) Daily, or three times weekly injections at least 48 hr apart. Injection site reaction, also injection flushing Potential Injection site reaction and post injection reaction (Flushing, anxiety chest pain, fast heart beat) (should only last a few minutes after injection, if persistent seek treatment) Nausea, fatigue, back pain. Flushing reaction post injection Treatment right away if allergic reaction, sx of infection, liver trouble, dizziness or passing out. Persistent SOB or chest pain. Watch for damage to fatty tissue where injected, report. Only inject where skin looks healthy. Training video ([employer] no longer supplies nurses for training, or injection devices) PFS supplied and training video [email or web address]://[email or web address]/injectio n-assistance/sba-nm-ltrjgr DDI none pertinent Vaccines reviewed Jus Saucedo CPhT Neurology, Cardiology & Infectious Disease [facility] documented in this encounter [facility] 05-24-2024 Note HNO ID: [id number] Author: JUAN MIGUEL ERVIN RPh Service: ? Author Type: ? Type: Progress Notes Filed: 05/30/2024 18:27 Note Text: [facility] Refill Assessment Medication(s): Glatiramer Patient's current medication list and adherence status to current therapy were reviewed by Specialty Pharmacy clinical pharmacist to identify any new drug interactions or non-compliance to therapy. Therapy continues to be appropriate for disease, patient response, and medical condition. Verification of therapeutic benefit and effectiveness with current therapy was completed. Adverse events, barriers in adherence, and side effects were assessed and addressed if applicable. Will proceed with refill with no changes in therapy - patient progressing towards achieving therapeutic goals based on medication-specific laboratory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 next 2-3 months documented in this encounter [facility] 12-25-2023 History of Present illness Narrative Images from the original note were not included. [facility] FOLLOWUP/ESTABLISHED PATIENT VISIT PRINCIPAL NEUROLOGIC DIAGNOSIS: Multiple Sclerosis DISEASE SUMMARY Date of onset: 03/2007 Date of diagnosis of MS: 03/2007 Disease course at onset: Relapsing-Remitting Current disease course: Progressive without relapses Previous disease therapies: - Betaseron [id number] - Copaxone - Tysabri 2009-Summer 2019 (stopped [...] over 3 weeks following occipital relase - 8035-4130 recurrent OS ON - 5997-4752 several relapses including L numbness, weakness, constipation, urinary urgency - 2019 R weakness and numbness needing a wheelchair, hospitalized at [facility] (off Tysabri x3 months due to planning [...] 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, ot, 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, sw, 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, is unable [...] easily fatigued Neuro-QoL Functions (higher=better functioning) Flowsheet [facility] Office Visit from 07/23/2023 in [facility] Office Visit from 01/17/2023 in [facility] Appointment from 01/15/2023 in [facility] Upper Extremity Domain T Score 28.29 31.35 [...] Flowsheet Row Office Visit from 07/23/2023 in [facility] Office Visit from 01/17/2023 in [facility] Appointment from 01/15/2023 in [facility] Sleep Domain T Score 69.2 68.89 61 [...] Edema of lower extremity (04/17/2021), Multiple sclerosis ([facility]), Seizure ([facility]), and Thyroid disease. She has no past medical history of Asthma, Blood dyscrasia, Breast disorder, Chlamydia, Chronic kidney disease, Complication of anesthesia, Coronary artery disease, Diabetes ([facility]), Diabetes, gestational, Gonorrhea, Herpes simplex virus (HSV) infection, History of pre-eclampsia in prior , currently , HIV infection ([facility]), Hypertension, Infertility, female, Liver disease, Malignant hyperthermia due to anesthesia, Mental disorder, Placental abruption, depression, hemorrhage, Rh incompatibility, Sickle cell anemia ([facility]), Syphilis, or Systemic lupus erythematosus [...] Flowsheet Row Office Visit from 07/23/2023 in [facility] Office Visit from 01/17/2023 in [facility] Processing Speed Total Number Correct [phone] [...] 5 Biceps 5- 5- Triceps 5 5 Noc Analyst 4- 4- Dorsal interossei 4- 4- [...] not been done. We will resubmit for [facility] today and if unable to assist will [...] - Resume nightly magnesium (refill sent) - [facility] Home Care: PT, OT, DIAMOND PICKER, SW, RETORT PRE COOKER - Schedule with [facility] ROGELIO in the meantime - Connect with MS Society - Follow up with sleep medicine - Follow up with PCP re: discussion with Medicare provider about LE circulation? - Follow up in 6 months Office Visit on 12/25/23 MRI THORACIC SPINE WO/W IVCON CONSULT TO [facility] Patient Health Education Discussed at Visit: Emotional Health/Wellness, Nutrition, Risks and Common side effects of MS medications, Stress management, Stretching, and Vitamin D supplementation Follow-up: In 6 months at [place] or Virtual Visit with [facility] APC I spent a total of 50 minutes on the date of the service which included preparing to see the patient, [id number] patient care, completing clinical documentation, obtaining and/or reviewing separately obtained history, performing a medically appropriate examination, counseling and educating the patient/family/caregiver, and ordering medications, tests, or procedures. Tor Hernandez APRN.CNP [facility] for Multiple Sclerosis documented in this encounter [facility] 12-25-2023 Note HNO ID: [id number] Author: TOR HERNANDEZ APRN.CNP Service: ? Author Type: Nurse Practitioner Type: Progress Notes Filed: 12/25/2023 12:09 Note Text: [facility] FOLLOWUP/ESTABLISHED PATIENT VISIT PRINCIPAL NEUROLOGIC DIAGNOSIS: Multiple Sclerosis DISEASE SUMMARY Date of onset: 03/2007 Date of diagnosis of MS: 03/2007 Disease course at onset: Relapsing-Remitting Current disease course: Progressive without relapses Previous disease therapies: - Betaseron [id number] - Copaxone 6925-8414 - Tysabri 2009-Summer 2019 (stopped due to planned ) - Copaxone 5676-0357 (during ) Current disease therapy: Ocrevus (since 02/28/21, most recent 09/25/23) Most recent MRI brain: 01/02/23 (stable) Most recent MRI cervical spine: 01/02/23 (stable) Most recent MRI thoracic spine: 07/23/2022 CSF: NA JCV: 02/14/2021 0.28, stratify negative Brief Disease History: - 2006 lower extremity numbness evolving over 3 weeks following occipital relase - 9963-3785 recurrent OS ON - 2774-3812 several relapses including L numbness, weakness, constipation, urinary urgency - 2019 R weakness and numbness needing a wheelchair, hospitalized at [facility] (off Tysabri x3 months due to planning [...] 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, ot, 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, sw, 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, is unable [...] Flowsheet Row Office Visit from 07/23/2023 in [facility] Office Visit from 01/17/2023 in [facility] Appointment from 01/15/2023 in [facility] Upper Extremity Domain T Score 28.29 31.35 [...] Flowsheet Row Office Visit from 07/23/2023 in [facility] Office Visit from 01/17/2023 in [facility] Appointment from 01/15/2023 in [facility] Sleep Domain T Score 69.2 68.89 61 [...] Edema of lower extremity (04/17/2021), Multiple sclerosis ([facility]), Seizure ([facility]), and Thyroid disease. She has no past medical history of Asthma, Blood dyscrasia, Breast disorder, Chlamydia, Chronic kidney disease, Complication of anesthesia, Coronary artery disease, Diabetes ([facility]), Diabetes, gestational, Gonorrhea, Herpes simplex virus (HSV) infection, History of pre-eclampsia in prior , currently , HIV infection ([facility]), Hypertension, Infertility, female, Liver disease, Malignant hyperthermia due to anesthesia, Mental disorder, Placental abruption, depression, hemorrhage, Rh incompatibility, Sickle cell anemia ([facility]), Syphilis, or Systemic lupus erythematosus ([facility]). has a current medica (more content not included)... [facility] 12-23-2023 History of Present illness Narrative HPI: Historian of HPI: patient and family Smooth Martinze is a 38 y.o. female who presents [...] Dr. Gael Howard. Transcribed by Tor messer LPN-IV 1. Cough, unspecified type Covid negative. Influenza negative. Results reviewed with patient. - STATUS COVID-19/FLU 2. Non-recurrent acute suppurative otitis media of left ear without spontaneous rupture of tympanic membrane Dx and tx reviewed with patient. Medication as directed. Push fluids. OTC ibuprofen/tylenol prn for pain/fever. [place] diet, advance as tolerated. Follow up with PCP. cefdinir (Omnicef) 300 MG capsule 3. Acute non-recurrent maxillary sinusitis Reviewed. 4. Vomiting, unspecified vomiting type, unspecified whether nausea present HCG negative. Results reviewed with patient. - POCT , urine manually resulted documented in this encounter [facility] 12-23-2023 Instructions Tor Gonzalez RN - 12/23/2023 1:30 PM EST See progress note documented in this encounter [facility] 12-11-2023 History of Present illness Narrative [...] Hypocalcemia Hypoglycemia Low iron MS (multiple sclerosis) ([facility]) Family History Problem Relation Name [...] of: ANSON Mon documented in this encounter [facility] 10-13-2023 Note HNO ID: [id number] Author: Alexandra Hogan LSW Service: ? Author Type: Roller Stitcher Type: Progress Notes Filed: 10/13/2023 10:52 AM Note Text: Patient appears on the First Time Treatment List for a non-oncology treatment. No psychosocial assessment is indicated. TORSTEN Ambrocio [facility] 10-13-2023 History of Present illness Narrative Patient appears on the First Time Treatment List for a non-oncology treatment. No psychosocial assessment is indicated. TORSTEN Ambrocio documented in this encounter [facility] 09-25-2023 Miscellaneous Notes Smooth is in our [place] clinic for her Ocrevus today. I just wanted to point out her ANC has dropped to 0.72 from today's cbc and this doesn't look normal for her. Patient feels fine with no complaints and no fever. Thank you, Katheryn Espino, RN documented in this encounter [facility] 08-26-2023 Note HNO ID: [id number] Author: Nayla Louis MD Service: ? Author Type: Physician Type: Progress Notes Filed: 08/26/2023 1:19 PM Note Text: Transvaginal and abdominal pelvic ultrasound performed. Results under imaging tab. Nayla Louis MD [facility] 08-26-2023 History of Present illness Narrative Transvaginal and abdominal pelvic ultrasound performed. Results under imaging tab. Nayla Louis MD documented in this encounter [facility] 08-19-2023 Note HNO ID: [id number] Author: Germania Wilkinson MD Service: ? Author Type: Physician Type: Progress Notes Filed: 08/19/2023 4:26 PM Note Text: [facility] New Patient Evaluation [...] or near accidents due to drowsy drivin Pearson Sleepiness Scale 01/03/2020 08/11/2023 Score 0 0 [...] Had 2 sleep studies - one at [place] [facility] [place] OTHER RELEVANT LABS AND STUDIES: PAST MEDICAL [...] Upset Fully A (more content not included)... [facility] 07-31-2023 Miscellaneous Notes Unable to order home PT (pelvic floor) as patient is not using [facility]. At last visit patient had stated she was using company: [employer] for home pt/ot PFT order re-ordered with comment for home therapy to aid in assistance but otherwise cannot order. [employer] is also to send us a prescription that I sign if able. Sleep medicine order replaced High dose vitamin D reordered to assist with compliance Tor Hernandez APRN.NATIONAL SALES ASSOCIATE July 31, 2023 1:57 PM documented in this encounter [facility] 07-31-2023 Miscellaneous Notes Patient also sent a message to her family medicine provider regarding this They placed the order for the podiatry consult and recommended Dr Wilkes in [place] documented in this encounter [facility] 07-23-2023 Instructions Tor Hernandez APRN.CNP - 07/23/2023 11:45 AM EDT We had [...] your house, if not, schedule with the [facility] documented in this encounter [facility] 07-23-2023 History of Present illness Narrative Images from the original note were not included. [facility] FOLLOWUP/ESTABLISHED PATIENT VISIT PRINCIPAL NEUROLOGIC DIAGNOSIS: Multiple Sclerosis DISEASE SUMMARY Date of onset: 03/2007 Date of diagnosis of MS: 03/2007 Disease course at onset: Relapsing-Remitting Current disease course: Progressive without relapses Previous disease therapies: - Betaseron 6625-9122 - Copaxone - Tysabri 2009-Summer 2019 (stopped due to planned ) - Copaxone 0269-2441 (during ) Current disease therapy: Ocrevus since 02/28/21, most recent 04/21/23 Most recent MRI brain: 01/02/23 (stable) Most recent MRI cervical spine: 01/02/23 (stable) Most recent MRI thoracic spine: 07/23/2022 CSF: NA JCV: 02/14/2021 0.28, stratify negative Brief Disease History: - 2006 lower extremity numbness evolving over 3 weeks following occipital relase - 4717-3803 recurrent OS ON - 0668-9028 several relapses including L numbness, weakness, constipation, urinary urgency - 2019 R weakness and numbness needing a wheelchair, hospitalized at [facility] (off Tysabri x3 months due to planning [...] effects. 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 Gets shaniqua [...] starting next week, unable to accommodate home DIAMOND PICKER Walks without walker or cane Leans on [...] in August Neuro-QoL Functions (higher=better functioning) Flowsheet [facility] Office Visit from 07/23/2023 in [facility] Office Visit from 01/17/2023 in [facility] Appointment from 01/15/2023 in [facility] Upper Extremity Domain T Score 28.29 31.35 30 Lower Extremity Domain T Score 36.94 36.94 39 Cognitive Function Domain T Score 30.7 28.53 38 Positive Affect Well Being T Score -- -- -- Ability To Participate In Social Roles T Score 39.9 39.9 43 Satisfaction With Social Roles T Score 39.66 39.66 45 Neuro-QoL Symptoms (higher=worse symptoms) Flowsheet [facility] Office Visit from 07/23/2023 in [facility] Office Visit from 01/17/2023 in [facility] Appointment from 01/15/2023 in [facility] Sleep Domain T Score 69.2 68.89 61 [...] Edema of lower extremity (04/17/2021), Multiple sclerosis ([facility]), Seizure ([facility]), and Thyroid disease. She has no past medical history of Asthma, Blood dyscrasia, Breast disorder, Chlamydia, Chronic kidney disease, Complication of anesthesia, Coronary artery disease, Diabetes ([facility]), Diabetes, gestational, Gonorrhea, Herpes simplex virus (HSV) infection, History of pre-eclampsia in prior , currently , HIV infection ([facility]), Hypertension, Infertility, female, Liver disease, Malignant hyperthermia due to anesthesia, Mental disorder, Placental abruption, depression, hemorrhage, Rh incompatibility, Sickle cell anemia ([facility]), Syphilis, or Systemic lupus erythematosus ([facility]). has a current medication list which includes the following prescription(s): ketoconazole, ketoconazole, trazodone, ergocalciferol (vitamin d2), tizanidine, dalfampridine er, ocrelizumab, vitamin b complex, melatonin, fluticasone, magnesium oxide, and iv contrast. EXAM: BP 94/62 Pulse 69 Wt 56.7 kg (125 lb) LMP 07/06/2023 (Exact Date) BMI 19.87 kg/m Multiple Sclerosis Performance Test Flowsheet Row Office Visit from 07/23/2023 in [facility] Office Visit from 01/17/2023 in [facility] Processing Speed Total Number Correct 52 51 [...] 5 Biceps 5- 5- Triceps 5 5 Noc Analyst 4 4- Dorsal interossei 4- 4- [...] this time she prefers to establish with [facility]. She is [...] - Continue home PT/OT - Schedule outpatient DIAMOND PICKER (cognitive therapy) - Magnesium QHS - Follow [...] which included preparing to see the patient, [id number] patient care, completing clinical documentation, obtaining and/or reviewing separately obtained history, performing a medically appropriate examination, counseling and educating the patient/family/caregiver, and ordering medications, tests, or procedures. Tor Hernandez APRN.CNP [facility] documented in this encounter [facility] 07-23-2023 Note HNO ID: [id number] Author: Tor Hernandez APRN.CNP Service: ? Author Type: Nurse Practitioner Type: Progress Notes Filed: 07/23/2023 5:00 PM Note Text: [facility] FOLLOWUP/ESTABLISHED PATIENT VISIT PRINCIPAL NEUROLOGIC DIAGNOSIS: Multiple Sclerosis DISEASE SUMMARY Date of onset: 03/2007 Date of diagnosis of MS: 03/2007 Disease course at onset: Relapsing-Remitting Current disease course: Progressive without relapses Previous disease therapies: - Betaseron [id number] - Copaxone 2242-1417 - Tysabri 2009-Summer 2019 (stopped due to [...] over 3 weeks following occipital relase - 5494-1679 recurrent OS ON - several relapses including L numbness, weakness, constipation, urinary urgency - 2019 R weakness and numbness needing a wheelchair, hospitalized at [facility] (off Tysabri x3 months due to planning [...] effects. 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 Gets shaniqua [...] starting next week, unable to accommodate home DIAMOND PICKER Walks without walker or cane Leans on [...] Flowsheet Row Office Visit from 07/23/2023 in [facility] Office Visit from 01/17/2023 in [facility] Appointment from 01/15/2023 in [facility] Upper Extremity Domain T Score 28.29 31.35 [...] Flowsheet Row Office Visit from 07/23/2023 in [facility] Office Visit from 01/17/2023 in [facility] Appointment from 01/15/2023 in [facility] Sleep Domain T Score 69.2 68.89 61 [...] Edema of lower extremity (04/17/2021), Multiple sclerosis ([facility]), Seizure ([facility]), and Thyroid disease. She has no past medical history of Asthma, Blood dyscrasia, Breast disorder, Chlamydia, Chronic kidney disease, Complication of anesthesia, Coronary artery disease, Diabetes ([facility]), Diabetes, gestational, Gonorrhea, Herpes simplex virus (HSV) infection, History of pre-eclampsia in prior , currently , HIV infection ([facility]), Hypertension, Infertility, female, Liver disease, Malignant hyperthermia due to anesthesia, Mental disorder, Placental abruption, depression, hemorrhage, Rh incompatibility, Sickle cell anemia ([facility]), Syp (more content not included)... [facility] 07-17-2023 Note HNO ID: [id number] Author: Janice Lane MD Service: ? Author [...] with her significant other. She went to [place] for a few months to live with her parents. She canceled or no showed her appointments with AUXILIARY ENGINEER and with her therapist. Patient said she [...] EXTREMITIES:Normal, No deformit (more content not included)... [facility] 06-27-2023 Miscellaneous Notes Patient is scheduled on 07-17-[address] documented in this encounter [facility] 06-18-2023 Note HNO ID: [id number] Author: Clarice Zepeda [facility]UC Service: ? Author Type: Health Atmospheric Sciences Professor Type: Progress Notes Filed: 06/20/2023 12:42 PM Note Text: Type of form: HEAP AIR CONDITIONER Form received via MY CHART Form is completed, Faxed form to [phone] ALEXYS Arndt [facility] 06-18-2023 History of Present illness Narrative Type of form: HEAP AIR CONDITIONER Form received via MY CHART Form is completed, Faxed form to [phone] ALEXYS Arndt documented in this encounter [facility] 06-16-2023 Miscellaneous Notes Orders for PT, OT, DIAMOND PICKER placed Recommend moving up appt scheduled in July for updates on care plan Tro Hernandez APRN.NATIONAL SALES ASSOCIATE June 16, 2023 12:00 PM documented in this encounter [facility] 03-13-2023 Miscellaneous Notes Noted. Results from Health visit, placed paper on your desk to review. Shayna Díaz MA documented in this encounter [facility] 02-12-2023 History of Present illness Narrative Smooth Martinez is a 37 year old female here for follow-up on anemia. Her neurologist check blood work recently and her hemoglobin was 9.4. Patient said that she has been having heavy menstrual periods lately. She is not the best historian. She saw her enterprise business architect about 3 weeks ago for vaginal discharge. She said after that appointment she developed fairly heavy vaginal bleeding with clots. She said she called her enterprise business architect and was advised to go to the [...] her child had been living in a custodial until recently. She said she is currently [...] pelvic ultrasound. Advised patient to message her enterprise business architect if she has any recurrent heavy bleeding. COVID testing performed today per patient request. If this is negative, take Z-cy. There are no Patient Instructions on file for this visit. Janice Lane MD documented in this encounter [facility] 01-30-2023 Miscellaneous Notes Called patient to schedule virtual psychology consult. Phone line was unavailable. Left a reminder message through [employer]. documented in this encounter [facility] 01-29-2023 Miscellaneous Notes Patient has been [...] number for patient, received a message in Hungarian then phone rang fast busy. [employer] message sent to patient. Per Dr. Santana: Hi, When you get a chance will call this patient and let her know that her blood tests showed that she has become anemic again and this may be contributing to her fatigue. I want her to see her family doctor for further evaluation and treatment. Thanks, Jose Raul Santana MD documented in this encounter [facility] 01-24-2023 History of Present illness Narrative Requested by: Other - Call Medication Requested: Modafinil Insurance Name: [employer] [place] phone #: Status: Approved PA Case: [id number], Status: Approved, Coverage Starts on: 11/10/2022 12:00:00 AM, Coverage Ends on: 04/18/2023 12:00:00 AM. documented in this encounter [facility] 01-21-2023 History of Present illness Narrative [facility] Neurological [place] Section of Neuropsychology Neuropsychological Evaluation Report CONFIDENTIAL [...] will be available to the patient in [facility]. RELEVANT BACKGROUND: Ms. Martinez was diagnosed with MS in 2006 and has a secondary progressive course. Her most recent relapse occurred in 2019, characterized by right sided weakness and numbness and vision loss. She required a wheelchair and was hospitalized in [place], [place]. She had COVID-19 at the end [...] worse over time. Her sister joined via [employer] and reports that the patient's processing speed is slower. She also feels that she has less drive and that she no longer has a go-getter mindset. She lives with her xfk-dxod-hem daughter. She is mostly independent though struggles due to physical limitations. She has an aide who has been helping her move in to her new apartment. Ms. Martinez manages her medications independently. She manages her finances without difficulty. She stopped driving after her relapse two years ago. 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 Tor Soto, Ph.D., [facility] Board Certified Clinical Neuropsychologist Clinical interview with patient/collateral, test interpretation, report, feedback by neuropsychologist: 3 hours Test administration by fmd teacher: 4.5 hours documented in this encounter [facility] 01-20-2023 Miscellaneous Notes Work excuse letter written for office visit 01/17/23. Tor Hernandez APRN.CNP January 20, 2023 10:17 AM documented in this encounter [facility] 01-17-2023 History of Present illness Narrative Images from the original note were not included. [facility] FOLLOWUP/ESTABLISHED PATIENT VISIT PRINCIPAL NEUROLOGIC DIAGNOSIS: multiple sclerosis DISEASE SUMMARY Date of onset: 03/2007 Date of diagnosis of MS: 03/2007 Disease course at onset: Relapsing-Remitting Current disease course: Progressive without relapses Previous disease therapies: Betaseron 3607-1289 Copaxone 9623-8987 Tysabri 2009-Summer 2019 (stopped due to planned ) Copaxone 5900-0470-recwhk Current disease therapy: Ocrevus since 02/28/21 Most recent MRI brain: 01/02/23 (stable) Most recent MRI cervical spine: 01/02/23 (stable) Most recent MRI thoracic spine: 07/23/2022 CSF: NA JCV: 02/14/2021 0.28, stratify negative Brief Disease History: -2006 lower extremity numbness evolving over 3 weeks following occipital relase -1780-0489 recurrent OS ON -1731-2678 several relapses including L numbness, weakness, constipation, urinary urgency -2019 R weakness and numbness needing a wheelchair, hospitalized at [facility] (off Tysabri x3 months due to planning [...] Flowsheet Row Office Visit from 01/17/2023 in [facility] Appointment from 01/15/2023 in [facility] Social Work from 12/18/2022 in [facility] Upper Extremity Domain T Score 31.35 30 [...] Flowsheet Row Office Visit from 01/17/2023 in [facility] Appointment from 01/15/2023 in [facility] Appointment from 12/19/2022 in Psychology Sleep Domain [...] Edema of lower extremity (04/17/2021), Multiple sclerosis ([facility]), Seizure ([facility]), Somnolence, daytime (07/28/2017), Thyroid disease, and Trauma. She has no past medical history of Asthma, Blood dyscrasia, Breast disorder, Chlamydia, Chronic kidney disease, Complication of anesthesia, Coronary artery disease, Diabetes ([facility]), Diabetes, gestational, Gonorrhea, Herpes simplex virus (HSV) infection, History of pre-eclampsia in prior , currently , HIV infection ([facility]), Hypertension, Infertility, female, Liver disease, Malignant hyperthermia due to anesthesia, Mental disorder, Placental abruption, depression, hemorrhage, Rh incompatibility, Sickle cell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 Visits Authorized [id number] Pending Review Auto-Generat ed Referral 07/31/2023 07/30/2024 1 1 Specialty Diagnoses / Procedures Referred By Contac t Referred To Contact MR IMAGING Diagnoses Multiple sclerosis (HCC) Procedures MRI THORACIC SPINE WO/W IVCON MRI SPINAL CANAL THORACIC W/O & W/CONTR MATRL Tor Hernandez APRN.NATIONAL SALES ASSOCIATE [address] [place] [address] [place] [address] Referral ID Status Reason Start Date Expiration Date Visits Requested Visits Authorized [id number] Pending Review Auto-Generat ed Referral 12/25/2023 01/23/2025 1 1 Specialty Diagnoses / Procedures Referred By Contac t Referred To Contact Diagnoses Multiple sclerosis (HCC) Tor Hernandez APRN.NATIONAL SALES ASSOCIATE [address] [phone] Referral ID Status Reason Start Date Expiration Date V isits Requested Visits Authorized [id number] Pending Review 1 1 Specialty Diagnoses / Procedures Referred By Contac t Referred To Contact Diagnoses Multiple sclerosis (HCC) Procedures CONSULT TO [facility] Tor Hernandez APRN.NATIONAL SALES ASSOCIATE [address] [phone] Home [facility] [address] [place] [address] Referral ID Status Reason Start Date Expiration Date Visits Requested Visits Authorized [id number] Authorized PCP Requested Referral 12/25/2023 03/24/2024 1 1 Referral ID Status Reason Start Date Expiration Date V isits Requested Visits Authorized [id number] Closed Auto-Generate d Referral 01/16/2024 02/15/2024 1 1 Specialty Diagnoses / Procedures Referred By Contac t Referred To Contact Diagnoses Multiple sclerosis (HCC) Procedures CONSULT TO SPEECH THERAPY Tor Hernandez APRN.NATIONAL SALES ASSOCIATE [address] [place] [address] Referral ID Status Reason Start Date Expiration Date Visits Requested Visits Authorized [id number] Ref Not Required PCP Requested Referral 02/26/2024 02/25/2025 1 1 Referral ID Status Reason Start Date Expiration Date Visits Requested Visits Authorized [id number] Pending Review Auto-Generat ed Referral 02/26/2024 02/25/2025 1 1 Specialty Diagnoses / Procedures Referred By Contac t Referred To Contact [facility] Diagnoses Multiple sclerosis (HCC) Procedures CONSULT TO PHYSICAL THERAPY PHYSICAL THERAPY EVALUATION HIGH COMPLEX 45 MINS Tor Hernandez APRN.NATIONAL SALES ASSOCIATE [address] [place] [address] [facility] [place] [address] Referral ID Status Reason Start Date Expiration Date Visits Requested Visits Authorized [id number] Pending Review Auto-Generat ed Referral 02/26/2024 02/25/2025 1 1 Health Concerns Infection Onset Date Last Indicated Resolved Time COVID-19 Rule-Out 02/12/2023 02/12/2023 Additional Source Comments INFORMATION SOURCE (unrecogn ized section and content) DATE CREATED AUTHOR 10/03/2020 [facility] DATE CREATED AUTHOR AUTHOR'S ORGANIZ ATION 01/05/2021 [facility] DATE CREATED AUTHOR AUTHOR'S ORGANIZ ATION 01/05/2021 [facility] DATE CREATED AUTHOR AUTHOR'S ORGANIZ ATION 12/17/2021 [facility] DATE CREATED AUTHOR AUTHOR'S ORGANIZ ATION 03/31/2022 [facility] DATE CREATED AUTHOR AUTHOR'S ORGANIZ ATION 01/25/2023 [facility] DATE CREATED AUTHOR AUTHOR'S ORGANIZ ATION 04/03/2024 [facility] EPIC DATE CREATED AUTHOR AUTHOR'S ORGANIZ ATION 04/05/2024 [facility] DATE CREATED AUTHOR AUTHOR'S ORGANIZ ATION 06/01/2024 [facility] Source Comments (unrecognize d section and content) In the event this informatio n is protected by the Federal Confidentiality of Alcohol and Drug Abuse Patient Records regulations: The Federal rules restrict any use of the information to criminally investigate or prosecute any alcohol or drug abuse patient.[facility] the event this information is protected by the Federal Confidentiality of Alcohol and Drug Abuse Patient Records regulations: The Federal rules restrict any use of the information to criminally investigate or prosecute any alcohol or drug abuse patient.[facility] HospitalIn the event this information is protected by the Federal Confidentiality of Alcohol and Drug Abuse Patient Records regulations: The Federal rules restrict any use of the information to criminally investigate or prosecute any alcohol or drug abuse patient.[facility]In the event this information is protected by the Federal Confidentiality of Alcohol and Drug Abuse Patient Records regulations: The Federal rules restrict any use of the information to criminally investigate or prosecute any alcohol or drug abuse patient.[facility] HospitalIn the event this information is protected by the Federal Confidentiality of Alcohol and Drug Abuse Patient Records regulations: The Federal rules restrict any use of the information to criminally investigate or prosecute any alcohol or drug abuse patient.[facility] HospitalIn the event this information is protected by the Federal Confidentiality of Alcohol and Drug Abuse Patient Records regulations: The Federal rules restrict any use of the information to criminally investigate or prosecute any alcohol or drug abuse patient.[facility] HospitalIn the event this information is protected by the Federal Confidentiality of Alcohol and Drug Abuse Patient Records regulations: The Federal rules restrict any use of the information to criminally investigate or prosecute any alcohol or drug abuse patient.[facility] HospitalIn the event this information is protected by the Federal Confidentiality of Alcohol and Drug Abuse Patient Records regulations: The Federal rules restrict any use of the information to criminally investigate or prosecute any alcohol or drug abuse patient.[facility] HospitalIn the event this information is protected by the Federal Confidentiality of Alcohol and Drug Abuse Patient Records regulations: The Federal rules restrict any use of the information to criminally investigate or prosecute any alcohol or drug abuse patient.[facility] HospitalIn the event this information is protected by the Federal Confidentiality of Alcohol and Drug Abuse Patient Records regulations: The Federal rules restrict any use of the information to criminally investigate or prosecute any alcohol or drug abuse patient.[facility] HospitalIn the event this information is protected by the Federal Confidentiality of Alcohol and Drug Abuse Patient Records regulations: The Federal rules restrict any use of the information to criminally investigate or prosecute any alcohol or drug abuse patient.[facility] HospitalIn the event this information is protected by the Federal Confidentiality of Alcohol and Drug Abuse Patient Records regulations: The Federal rules restrict any use of the information to criminally investigate or prosecute any alcohol or drug abuse patient.[facility] HospitalIn the event this information is protected by the Federal Confidentiality of Alcohol and Drug Abuse Patient Records regulations: The Federal rules restrict any use of the information to criminally investigate or prosecute any alcohol or drug abuse patient.[facility] HospitalIn the event this information is protected by the Federal Confidentiality of Alcohol and Drug Abuse Patient Records regulations: The Federal rules restrict any use of the information to criminally investigate or prosecute any alcohol or drug abuse patient.[facility] HospitalIn the event this information is protected by the Federal Confidentiality of Alcohol and Drug Abuse Patient Records regulations: The Federal rules restrict any use of the information to criminally investigate or prosecute any alcohol or drug abuse patient.[facility] HospitalIn the event this information is protected by the Federal Confidentiality of Alcohol and Drug Abuse Patient Records regulations: The Federal rules restrict any use of the information to criminally investigate or prosecute any alcohol or drug abuse patient.[facility] HospitalIn the event this information is protected by the Federal Confidentiality of Alcohol and Drug Abuse Patient Records regulations: The Federal rules restrict any use of the information to criminally investigate or prosecute any alcohol or drug abuse patient.[facility] HospitalIn the event this information is protected by the Federal Confidentiality of Alcohol and Drug Abuse Patient Records regulations: The Federal rules restrict any use of the information to criminally investigate or prosecute any alcohol or drug abuse patient.[facility] HospitalIn the event this information is protected by the Federal Confidentiality of Alcohol and Drug Abuse Patient Records regulations: The Federal rules restrict any use of the information to criminally investigate or prosecute any alcohol or drug abuse patient.[facility] HospitalIn the event this information is protected by the Federal Confidentiality of Alcohol and Drug Abuse Patient Records regulations: The Federal rules restrict any use of the information to criminally investigate or prosecute any alcohol or drug abuse patient.[facility] HospitalIn the event this information is protected by the Federal Confidentiality of Alcohol and Drug Abuse Patient Records regulations: The Federal rules restrict any use of the information to criminally investigate or prosecute any alcohol or drug abuse patient.[facility] HospitalIn the event this information is protected by the Federal Confidentiality of Alcohol and Drug Abuse Patient Records regulations: The Federal rules restrict any use of the information to criminally investigate or prosecute any alcohol or drug abuse patient.[facility] HospitalIn the event this information is protected by the Federal Confidentiality of Alcohol and Drug Abuse Patient Records regulations: The Federal rules restrict any use of the information to criminally investigate or prosecute any alcohol or drug abuse patient.[facility] HospitalIn the event this information is protected by the Federal Confidentiality of Alcohol and Drug Abuse Patient Records regulations: The Federal rules restrict any use of the information to criminally investigate or prosecute any alcohol or drug abuse patient.[facility] HospitalIn the event this information is protected by the Federal Confidentiality of Alcohol and Drug Abuse Patient Records regulations: The Federal rules restrict any use of the information to criminally investigate or prosecute any alcohol or drug abuse patient.[facility] HospitalIn the event this information is protected by the Federal Confidentiality of Alcohol and Drug Abuse Patient Records regulations: The Federal rules restrict any use of the information to criminally investigate or prosecute any alcohol or drug abuse patient.[facility] HospitalIn the event this information is protected by the Federal Confidentiality of Alcohol and Drug Abuse Patient Records regulations: The Federal rules restrict any use of the information to criminally investigate or prosecute any alcohol or drug abuse patient.[facility] HospitalIn the event this information is protected by the Federal Confidentiality of Alcohol and Drug Abuse Patient Records regulations: The Federal rules restrict any use of the information to criminally investigate or prosecute any alcohol or drug abuse patient.[facility] HospitalIn the event this information is protected by the Federal Confidentiality of Alcohol and Drug Abuse Patient Records regulations: The Federal rules restrict any use of the information to criminally investigate or prosecute any alcohol or drug abuse patient.[facility] HospitalIn the event this information is protected by the Federal Confidentiality of Alcohol and Drug Abuse Patient Records regulations: The Federal rules restrict any use of the information to criminally investigate or prosecute any alcohol or drug abuse patient.[facility] HospitalIn the event this information is protected by the Federal Confidentiality of Alcohol and Drug Abuse Patient Records regulations: The Federal rules restrict any use of the information to criminally investigate or prosecute any alcohol or drug abuse patient.[facility] HospitalIn the event this information is protected by the Federal Confidentiality of Alcohol and Drug Abuse Patient Records regulations: The Federal rules restrict any use of the information to criminally investigate or prosecute any alcohol or drug abuse patient.[facility] HospitalIn the event this information is protected by the Federal Confidentiality of Alcohol and Drug Abuse Patient Records regulations: The Federal rules restrict any use of the information to criminally investigate or prosecute any alcohol or drug abuse patient.[facility] HospitalIn the event this information is protected by the Federal Confidentiality of Alcohol and Drug Abuse Patient Records regulations: The Federal rules restrict any use of the information to criminally investigate or prosecute any alcohol or drug abuse patient.[facility] HospitalIn the event this information is protected by the Federal Confidentiality of Alcohol and Drug Abuse Patient Records regulations: The Federal rules restrict any use of the information to criminally investigate or prosecute any alcohol or drug abuse patient.[facility] HospitalIn the event this information is protected by the Federal Confidentiality of Alcohol and Drug Abuse Patient Records regulations: The Federal rules restrict any use of the information to criminally investigate or prosecute any alcohol or drug abuse patient.[facility] HospitalIn the event this information is protected by the Federal Confidentiality of Alcohol and Drug Abuse Patient Records regulations: The Federal rules restrict any use of the information to criminally investigate or prosecute any alcohol or drug abuse patient.[facility] HospitalIn the event this information is protected by the Federal Confidentiality of Alcohol and Drug Abuse Patient Records regulations: The Federal rules restrict any use of the information to criminally investigate or prosecute any alcohol or drug abuse patient.[facility] HospitalIn the event this information is protected by the Federal Confidentiality of Alcohol and Drug Abuse Patient Records regulations: The Federal rules restrict any use of the information to criminally investigate or prosecute any alcohol or drug abuse patient.[facility] HospitalIn the event this information is protected by the Federal Confidentiality of Alcohol and Drug Abuse Patient Records regulations: The Federal rules restrict any use of the information to criminally investigate or prosecute any alcohol or drug abuse patient.[facility] HospitalIn the event this information is protected by the Federal Confidentiality of Alcohol and Drug Abuse Patient Records regulations: The Federal rules restrict any use of the information to criminally investigate or prosecute any alcohol or drug abuse patient.[facility] HospitalIn the event this information is protected by the Federal Confidentiality of Alcohol and Drug Abuse Patient Records regulations: The Federal rules restrict any use of the information to criminally investigate or prosecute any alcohol or drug abuse patient.[facility] HospitalIn the event this information is protected by the Federal Confidentiality of Alcohol and Drug Abuse Patient Records regulations: The Federal rules restrict any use of the information to criminally investigate or prosecute any alcohol or drug abuse patient.[facility] HospitalIn the event this information is protected by the Federal Confidentiality of Alcohol and Drug Abuse Patient Records regulations: The Federal rules restrict any use of the information to criminally investigate or prosecute any alcohol or drug abuse patient.[facility] HospitalIn the event this information is protected by the Federal Confidentiality of Alcohol and Drug Abuse Patient Records regulations: The Federal rules restrict any use of the information to criminally investigate or prosecute any alcohol or drug abuse patient.[facility] HospitalIn the event this information is protected by the Federal Confidentiality of Alcohol and Drug Abuse Patient Records regulations: The Federal rules restrict any use of the information to criminally investigate or prosecute any alcohol or drug abuse patient.[facility] HospitalIn the event this information is protected by the Federal Confidentiality of Alcohol and Drug Abuse Patient Records regulations: The Federal rules restrict any use of the information to criminally investigate or prosecute any alcohol or drug abuse patient.[facility] HospitalIn the event this information is protected by the Federal Confidentiality of Alcohol and Drug Abuse Patient Records regulations: The Federal rules restrict any use of the information to criminally investigate or prosecute any alcohol or drug abuse patient.[facility] HospitalIn the event this information is protected by the Federal Confidentiality of Alcohol and Drug Abuse Patient Records regulations: The Federal rules restrict any use of the information to criminally investigate or prosecute any alcohol or drug abuse patient.[facility] HospitalIn the event this information is protected by the Federal Confidentiality of Alcohol and Drug Abuse Patient Records regulations: The Federal rules restrict any use of the information to criminally investigate or prosecute any alcohol or drug abuse patient.[facility] HospitalIn the event this information is protected by the Federal Confidentiality of Alcohol and Drug Abuse Patient Records regulations: The Federal rules restrict any use of the information to criminally investigate or prosecute any alcohol or drug abuse patient.[facility] HospitalIn the event this information is protected by the Federal Confidentiality of Alcohol and Drug Abuse Patient Records regulations: The Federal rules restrict any use of the information to criminally investigate or prosecute any alcohol or drug abuse patient.[facility] HospitalIn the event this information is protected by the Federal Confidentiality of Alcohol and Drug Abuse Patient Records regulations: The Federal rules restrict any use of the information to criminally investigate or prosecute any alcohol or drug abuse patient.[facility] HospitalIn the event this information is protected by the Federal Confidentiality of Alcohol and Drug Abuse Patient Records regulations: The Federal rules restrict any use of the information to criminally investigate or prosecute any alcohol or drug abuse patient.[facility] HospitalIn the event this information is protected by the Federal Confidentiality of Alcohol and Drug Abuse Patient Records regulations: The Federal rules restrict any use of the information to criminally investigate or prosecute any alcohol or drug abuse patient.[facility] HospitalIn the event this information is protected by the Federal Confidentiality of Alcohol and Drug Abuse Patient Records regulations: The Federal rules restrict any use of the information to criminally investigate or prosecute any alcohol or drug abuse patient.[facility] HospitalIn the event this information is protected by the Federal Confidentiality of Alcohol and Drug Abuse Patient Records regulations: The Federal rules restrict any use of the information to criminally investigate or prosecute any alcohol or drug abuse patient.[facility] HospitalIn the event this information is protected by the Federal Confidentiality of Alcohol and Drug Abuse Patient Records regulations: The Federal rules restrict any use of the information to criminally investigate or prosecute any alcohol or drug abuse patient.[facility] HospitalIn the event this information is protected by the Federal Confidentiality of Alcohol and Drug Abuse Patient Records regulations: The Federal rules restrict any use of the information to criminally investigate or prosecute any alcohol or drug abuse patient.[facility] HospitalIn the event this information is protected by the Federal Confidentiality of Alcohol and Drug Abuse Patient Records regulations: The Federal rules restrict any use of the information to criminally investigate or prosecute any alcohol or drug abuse patient.[facility] HospitalIn the event this information is protected by the Federal Confidentiality of Alcohol and Drug Abuse Patient Records regulations: The Federal rules restrict any use of the information to criminally investigate or prosecute any alcohol or drug abuse patient.[facility] HospitalIn the event this information is protected by the Federal Confidentiality of Alcohol and Drug Abuse Patient Records regulations: The Federal rules restrict any use of the information to criminally investigate or prosecute any alcohol or drug abuse patient.[facility] HospitalIn the event this information is protected by the Federal Confidentiality of Alcohol and Drug Abuse Patient Records regulations: The Federal rules restrict any use of the information to criminally investigate or prosecute any alcohol or drug abuse patient.[facility] HospitalIn the event this information is protected by the Federal Confidentiality of Alcohol and Drug Abuse Patient Records regulations: The Federal rules restrict any use of the information to criminally investigate or prosecute any alcohol or drug abuse patient.[facility] HospitalIn the event this information is protected by the Federal Confidentiality of Alcohol and Drug Abuse Patient Records regulations: The Federal rules restrict any use of the information to criminally investigate or prosecute any alcohol or drug abuse patient.[facility] the event this information is protected by the Federal Confidentiality of Alcohol and Drug Abuse Patient Records regulations: The Federal rules restrict any use of the information to criminally investigate or prosecute any alcohol or drug abuse patient.[facility] the event this information is protected by the Federal Confidentiality of Alcohol and Drug Abuse Patient Records regulations: The Federal rules restrict any use of the information to criminally investigate or prosecute any alcohol or drug abuse patient.[facility] the event this information is protected by the Federal Confidentiality of Alcohol and Drug Abuse Patient Records regulations: The Federal rules restrict any use of the information to criminally investigate or prosecute any alcohol or drug abuse patient.[facility] Hospital[facility] the event this information is protected by the Federal Confidentiality of Alcohol and Drug Abuse Patient Records regulations: The Federal rules restrict any use of the information to criminally investigate or prosecute any alcohol or drug abuse patient.[facility] HospitalIn the event this information is protected by the Federal Confidentiality of Alcohol and Drug Abuse Patient Records regulations: The Federal rules restrict any use of the information to criminally investigate or prosecute any alcohol or drug abuse patient.[facility] HospitalIn the event this information is protected by the Federal Confidentiality of Alcohol and Drug Abuse Patient Records regulations: The Federal rules restrict any use of the information to criminally investigate or prosecute any alcohol or drug abuse patient.[facility] HospitalIn the event this information is protected by the Federal Confidentiality of Alcohol and Drug Abuse Patient Records regulations: The Federal rules restrict any use of the information to criminally investigate or prosecute any alcohol or drug abuse patient.[facility] Reason for Visit (unrecogniz ed section and content) Reason Comments OT Progress Note Specialty Diagnoses / Procedures Referred By Contac t Referred To Contact [facility] Diagnoses Multiple sclerosis (HCC) Procedures CONSULT TO SUPERVISOR QUILTING OCCUPATIONAL THERAPY [facility] 60 MINS [place] PhD [address] [place], [place] [id number] [facility] [place] [address] Referral ID Status Reason Start Date Expiration Date V isits Requested Visits Authorized [id number] Authorized 11/10/2021 11/09/2022 30 30 Reason Comments Speech Progress Note Education Of Patient/family Specialty Diagnoses / Procedures Referred By Contac t Referred To Contact [facility] Diagnoses Multiple sclerosis (HCC) Procedures CONSULT TO SPEECH THERAPY OFFICE/OUTPATIENT [facility] 60-74 MINUTES Marshall Hanley MD, PhD [address] [place] [address] [facility] [place] [address] Referral ID Status Reason Start Date Expiration Date V isits Requested Visits Authorized [id number] Authorized 11/10/2021 11/09/2022 30 30 Reason Comments Ocrevus Prior Auth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
== END 2024-06-08 08:33 | disposition home or self-care (01) ==
LOC: NOMS 08:33
PROVIDERS: Visit Provider Obstetrics & Gynecology
DX: Z36.86 Encounter for antenatal screening for cervical length (principal); Z3A.19 19 weeks gestation of pregnancy
CPT/HCPCS: 76817

== ENCOUNTER 2024-07-17 11:01 | Outpatient (OUT) | payer MEDICARE, MEDICAID, SELFPAY ==
--- OUTSIDE RECORDS SUMMARY | 2024-07-17 11:06 | XMS_ITS | CCD ---
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 [id number] [place] [address] [place] Lymphocytes/100 WBC (Bld) 21.7 % Normal [facility] Comment on above: Order Comment: Speci men Type: BLOOD SPECIMENOrdering Facility: [facility] Address: [address] [place] [address] Performed By: #### 5 7021-8, 7 ####[facility] LABIA [id number] [place] [address] [place] MCH (RBC) [Entitic mass] 24.1 pg Low 26.0-34.0 [facility] Comment on above: Order Comment: Speci men Type: BLOOD SPECIMENOrdering Facility: [facility] Address: [address] [place] [address] Performed By: #### 5 7021-8, 7 ####[facility] LABIA [id number] [place] [address] [place] MCHC (RBC) [Mass/Vol] 30.9 g/dL Normal 30.5-36.0 [facility] Comment on above: Order Comment: Speci men Type: BLOOD SPECIMENOrdering Facility: [facility] Address: [address] [place] [address] Performed By: #### 5 7021-8, 7 ####[facility] [id number] [place] [address] [place] MCV (RBC) [Entitic vol] 77.9 fL Low 80.0-100.0 [facility] Comment on above: Order Comment: Speci men Type: BLOOD SPECIMENOrdering Facility: [facility] Address: [address] [place] [address] Performed By: #### 5 7021-8, 7 ####[facility] LABIA [id number] [place] [address] [place] Monocytes (Bld) [#/Vol] 0.69 10*3/uL Normal <0.87 [facility] Comment on above: Order Comment: Speci men Type: BLOOD SPECIMENOrdering Facility: [facility] Address: [address] [place] [address] Performed By: #### 5 7021-8, 4536-7 ####[facility] LABIA [id number] [place] [address] [place] Monocytes/100 WBC (Bld) 9.2 % Normal [facility] Comment on above: Order Comment: Speci men Type: BLOOD SPECIMENOrdering Facility: [facility] Address: [address] [place] [address] Performed By: #### 5 7021-8, 4537-7 ####[facility] LABCLIA [id number] [place] [address] [place] Neutrophils (Bld) [#/Vol] 5.08 10*3/uL Normal 1.45-7.50 [facility] Comment on above: Order Comment: Speci men Type: BLOOD SPECIMENOrdering Facility: [facility] Address: [address] [place] [address] Performed By: #### 5 7021-8, 4537-7 ####[facility] LABCLIA [id number] [place] [address] [place] Neutrophils/100 WBC (Bld) 68.0 % Normal [facility] Comment on above: Order Comment: Speci men Type: BLOOD SPECIMENOrdering Facility: [facility] Address: [address] [place] [address] Performed By: #### 5 7021-8, 7-7 ####[facility] LABCLIA [id number] [place] [address] [place] Nucleated RBC (Bld) [#/Vol] 10*3/uL Normal <0.01 [facility] Comment on above: Order Comment: Speci men Type: BLOOD SPECIMENOrdering Facility: [facility] Address: [address] [place] [address] Performed By: #### 5 7021-8, 7-7 ####[facility] LABCLIA [id number] [place] [address] [place] Nucleated RBC/100 WBC (Bld) [Ratio] 0.0 /100 WBC Normal [facility] Comment on above: Order Comment: Speci men Type: BLOOD SPECIMENOrdering Facility: [facility] Address: [address] [place] [address] Performed By: #### 5 7021-8, 4536-7 ####[facility] LABCLIA [id number] [place] [address] [place] Platelet mean volume (Bld) [Entitic vol] Normal [facility] Comment on above: Order Comment: Speci men Type: BLOOD SPECIMENOrdering Facility: [facility] Address: [address] [place] [address] Result Comment: Unab le to Report. Performed By: #### 5 7021-8, 4536-7 ####[facility] LABCLIA [id number] [place] [address] [place] Platelets (Bld) [#/Vol] 185 10*3/uL Normal 150-400 [facility] Comment on above: Order Comment: Speci men Type: BLOOD SPECIMENOrdering Facility: [facility] Address: [address] [place] [address] Result Comment: Resu lts checked and verified.No clot detected. Performed By: #### 5 7021-8, 4536-7 ####[facility] LABCLIA [id number] [place] [address] [place] RBC (Bld) [#/Vol] 5.15 10*6/uL Normal 3.90-5.20 [facility] Comment on above: Order Comment: Speci men Type: BLOOD SPECIMENOrdering Facility: [facility] Address: [address] [place] [address] Performed By: #### 5 7021-8, 4536-7 ####[facility] LABCLIA [id number] [place] [address] [place] WBC (Bld) [#/Vol] 7.47 10*3/uL Normal 3.70-11.00 [facility] Comment on above: Order Comment: Speci men Type: BLOOD SPECIMENOrdering Facility: [facility] Address: [address] [place] [address] Performed By: #### 5 7021-8, 4537-7 ####[facility] LABCLIA [id number] [place] [place] [id number] [facility] CNOVon 03-04-2024 CNOV Office Visit ([facility] ) ----- SMOOTH MARTINEZ ([id number]) 1985 F Date Time Provider Department 03/04/24 1:[address] [facility] During your visit today, we recorded the following information about you: Temperature Pulse Blood pressure Weight 98.1 degrees 95/minute 101/66 55.7 kg Height 1.689 m Cintia Cadena MA 03/04/2024 1:00 PM Signed [facility] Please visit our lab at least 3-5 days before your scheduled appointment to have your lab work drawn, if lab work is ordered. This will allow us the ability to review your lab work results with you during your scheduled visit. [facility]: Lab is open Friday - Friday from 6:30am to 5pm and open 8am -12pm on Saturdays. [place] [facility]: Friday- 7:30am to 5:30pm. Fridays [...] medicine, or pediatrics at any of our [facility] locations and main campus. Janice Lane MD 03/04/2024 3:19 PM Signed Smooth Martinez is a 38 year old [...] for next physical. Patient Instructions [facility] Please visit our lab at least 3-5 days before your scheduled appointment to have your lab work drawn, if lab work is ordered. This will allow us the ability to review your lab work results with you during your scheduled visit. [facility] MCGRATH (more content not included)... Normal [facility] CRP SerPl-mCncon 03-04-2024 CRP [Mass/Vol] mg/L Normal <0.9 [facility] Comment on above: Order Comment: Speci men Type: BLOOD SPECIMENOrdering Facility: [facility] Address: [address] [place] [address] Performed By: #### 2 276-4, 1987-5, 34683-9, 28763-2 ####[facility] LABCLIA [id number] [place] [address] [place] ESR Westergren method (Bld) [Velocity]on 03-04-2024 ESR (Bld) [Velocity] 5 mm/h Normal 0-20 [facility] Comment on above: Order Comment: Speci men Type: BLOOD SPECIMENOrdering Facility: [facility] Address: [address] [place] [address] Performed By: #### 5 7021-8, 4537-7 ####[facility] LABCLIA [id number] [place] [address] [place] Ferritin SerPl-mCncon 2023 Ferritin [Mass/Vol] 14.2 ng/mL Low 14.7-205.1 [facility] Comment on above: Order Comment: Speci men Type: BLOOD SPECIMENOrdering Facility: [facility] Address: [address] [place] [address] Performed By: #### 2 276-4, 1988-03, 85569-2, 65061-7 ####[facility] LABCLIA [id number] [place] [address] [place] Iron and Iron binding capaci ty panelon 03-04-2024 Iron [Mass/Vol] 90 ug/dL Normal 41-186 [facility] Comment on above: Order Comment: Speci men Type: BLOOD SPECIMENOrdering Facility: [facility] Address: [address] [place] [address] Performed By: #### 2 276-4, 1988-03, 22509-5, 95090-7 ####[facility] LABCLIA [id number] [place] [address] [place] Iron binding capacity [Mass/Vol] 351 ug/dL Normal 232-386 [facility] Comment on above: Order Comment: Speci men Type: BLOOD SPECIMENOrdering Facility: [facility] Address: [address] [place] [address] Performed By: #### 2 276-4, 1988-03, 12165-4, 86448-6 ####[facility] LABCLIA [id number] [place] [address] [place] Iron/TIBC [Molar ratio] 25.6 % Normal 15.0-57.0 [facility] Comment on above: Order Comment: Speci men Type: BLOOD SPECIMENOrdering Facility: [facility] Address: [address] [place] [address] Performed By: #### 2 276-4, 1988-03, 78872-3, 79030-9 ####[facility] LABCLIA [id number] [place] [address] [place] Rheumatoid fact SerPl-aCncon 03-04-2024 Rheumatoid factor Qn [IU]/mL Normal <[address] [facility] Comment on above: Order Comment: Speci men Type: BLOOD SPECIMENOrdering Facility: [facility] Address: [address] [place] [address] Performed By: #### 2 276-4, 1988-03, 82585-2, 21412-1 ####[facility] LABIA [id number] [place] [address] [place] Urate SerPl-mCncon Urate [Mass/Vol] 3.1 mg/dL Normal 2.5-6.6 [facility] Comment on above: Order Comment: Speci men Type: BLOOD SPECIMENOrdering Facility: [facility] Address: [address] [place] [address] Performed By: #### 3 084-1 ####[facility] LABIA [id number] [address] [place] XR CERVICAL 4V AP/LAT/OBLon [...] cervical disc spaces and neural foramina. Manager Clinical Applications: [facility] C[facility]ERSocial [employer] Transcribe Date/Time: Mar 08 2024 4:48P Dictated by : VIKTORIYA WALTER MD This examination was interpreted and the report reviewed and electronically signed by: VIKTORIYA WALTER MD on Mar 08 2024 4:50PM EST [id number] Normal [facility] XR LUMBAR 3V AP/LAT/L5-S1on 03-04-2024 XR LUMBAR [...] radiographic appearance of the lumbar spine. Manager Clinical Applications: [employer] Transcribe Date/Time: Mar 08 2024 4:47P Dictated by : VIKTORIYA WALTER MD This examination was interpreted and the report reviewed and electronically signed by: VIKTORIYA WALTER MD on Mar 08 2024 4:48PM EST [id number] Normal [facility] A1C with Estimated Average G rober 02-24-2024 Glucose [Mass/Vol] 100 mg/dL Normal [facility] Comment on above: Result Comment: PERF ORMED BY: [place] [address] PATHOLOGIST SAFETY SCIENTIST ALEN PRICE M.D. Performed By: #### P TT, HCGQNT, CBC, PT, T4F, A1C WTH eA, TSH3 #### [address] HbA1c (Bld) [Mass fraction] 5.1 % Normal 4.3-5.6 [facility] Comment on above: Result Comment: Incr eased risk for diabetes: 5.7 - 6.4 diabetes: >6.4 glycemic control for adults with diabetes: <7.0 Performed By: #### P TT, HCGQNT, CBC, PT, T4F, A1C WTH eA, TSH3 #### [address] Activated partial thrombopla stin time (aPTT) in platelet poor plasma by coagulation aOrdered By: Clarke Hu on 02-24-2024 aPTT Coag (PPP) [Time] 33.7 s 25.1-36.5 [facility] Comment on above: A hematocrit value g reater than 55% may lead to inaccurate results in coagulation testing. Patients having hematocrit values >55% require a special collection tube for coagulation studies. Please contact the laboratory at [phone] for redraw instructions. Basophils Auto (Bld) [#/Vol] Ordered By: Clarke Hu on 02-24-2024 Basophils (Bld) [#/Vol] 0.0 10*3/uL 0.0-0.2 [facility] Basophils/100 WBC Auto (Bld) Ordered By: Clarke Hu on 02-24-2024 Basophils/100 WBC (Bld) 0.5 % . [facility] CNPLilli 02-24-2024 [facility] SMOOTH MARTINEZ ([id number]) 1985 F Date Time Provider Department 02/24/24 TOR HERNANDEZ During your visit today, we recorded the following information about you: Bobby Scottine 02/24/2024 2:33 PM Signed [place] Call Name of caller : Milady Relationship to patient: Barney Osorio Return call phone number : [phone] Reason for call : Other : Brief description of concern : The patient is not considered homebound and they are unable to admit the patient. Mirna Baxter LSW 02/26/2024 10:08 AM Signed Spoke with [facility], Iris Edge regarding this message. Iris stated she encouraged pt to reach out to her insurance company and request an insurance CM to help her find an outside provider to provide services. Request sent to Tor Hernandez APRN.CNP for orders: non-[facility] outpatient PT, OT and SPT? Once she finds an outside provider, then [facility] can send the orders. DEZ Archer, [facility] Social Work Tor Hernandez APRN.CNP 02/26/2024 10:23 AM Signed Non-[facility] PT, OT, and CHARGE OUT CLERK orders placed Tor Hernandez APRN.CNP February 26, [...] Date Reviewed: 01/19/2024 Reviewed by: Kaitlyn Forbes, remedial teacher - Fully Assessed Primary Visit Diagnosis:Multiple sclerosis (HCC) [G35] Order(s):CONSULT TO PHYSICAL THERAPY [9032] Order #: [id number]: 1 FUTURE CONSULT TO [facility] [facility] [[id number]] Order #: [id number]: 1 FUTURE CONSULT TO SPEECH THERAPY [[id number]] Order #: [id number]: 1 FUTURE Prescriptions as of 02/26/2024 - [...] (FLONASE) 50 mcg/actuation nasal spray Use 1 [place] in each nostril once daily. Problem List [...] extremity [R6 (more content not included)... Normal [facility] Choriogonadotropin.beta subu nit [Units/volume] in Serum or PlasmaOrdered By: Clarke Hu on 02-24-2024 HCG.beta subunit Qn 791.11 m[IU]/mL [facility] Comment on above: Approximate Approxim ate hCG Gestational Age Range (mIU/ml) (weeks)0.2-1 5-50 1-2 50-500 2-3 100-5,000 3-4 500-10,000 4-5 1,000-50,000 5-6 10,000-100,000 6-8 15,000-200,000 8-12 10,000-100,000 Complete Blood Count Auto Di ffon 02-24-2024 Basophils (Bld) [#/Vol] 0.0 10*3/uL Normal 0.0-0.2 [facility] Comment on above: Result Comment: PERF ORMED BY: [place] [address] PATHOLOGIST SAFETY SCIENTIST ALEN PRICE M.D. Performed By: #### P TT, HCGQNT, CBC, PT, T4F, A1C WTH eA, TSH3 #### [address] Basophils/100 WBC (Bld) 0.5 % Normal . [facility] Comment on above: Performed By: #### P TT, HCGQNT, CBC, PT, T4F, A1C WTH eA, TSH3 #### [place] [address] [place] Eosinophils (Bld) [#/Vol] 0.0 10*3/uL Normal 0.0-0.45 [facility] Comment on above: Performed By: #### P TT, HCGQNT, CBC, PT, T4F, A1C WTH eA, TSH3 #### [place] [address] [place] Eosinophils/100 WBC (Bld) 0.2 % Normal . [facility] Comment on above: Performed By: #### P TT, HCGQNT, CBC, PT, T4F, A1C WTH eA, TSH3 #### [place] [address] [place] Erythrocyte distribution width (RBC) [Ratio] 15.2 % Normal 11.9-15.3 [facility] Comment on above: Performed By: #### P TT, HCGQNT, CBC, PT, T4F, A1C WTH eA, TSH3 #### [address] Hematocrit (Bld) [Volume fraction] 36.9 % Normal 34.0-46.4 [facility] Comment on above: Performed By: #### P TT, HCGQNT, CBC, PT, T4F, A1C WTH eA, TSH3 #### [address] Hemoglobin (Bld) [Mass/Vol] 11.7 g/dL Low 11.8-15.4 [facility] Comment on above: Performed By: #### P TT, HCGQNT, CBC, PT, T4F, A1C WTH eA, TSH3 #### [address] Lymphocytes (Bld) [#/Vol] 2.1 10*3/uL Normal 1.00-4.8 [facility] Comment on above: Performed By: #### P TT, HCGQNT, CBC, PT, T4F, A1C WTH eA, TSH3 #### [address] Lymphocytes/100 WBC (Bld) 26.9 % Normal . [facility] Comment on above: Performed By: #### P TT, HCGQNT, CBC, PT, T4F, A1C WTH eA, TSH3 #### [address] MCH (RBC) [Entitic mass] 24.4 pg Low 24.7-34.3 [facility] Comment on above: Performed By: #### P TT, HCGQNT, CBC, PT, T4F, A1C WTH eA, TSH3 #### [address] MCV (RBC) [Entitic vol] 76.5 fL Low 80-100 [facility] Comment on above: Performed By: #### P TT, HCGQNT, CBC, PT, T4F, A1C WTH eA, TSH3 #### [address] Mean Corpuscular HGB Conc 31.8 g/dL Low 32.0-35.0 [facility] Comment on above: Performed By: #### P TT, HCGQNT, CBC, PT, T4F, A1C WTH eA, TSH3 #### [address] Monocytes (Bld) [#/Vol] 0.7 10*3/uL Normal 0.0-0.8 [facility] Comment on above: Performed By: #### P TT, HCGQNT, CBC, PT, T4F, A1C WTH eA, TSH3 #### [address] Monocytes/100 WBC (Bld) 9.3 % Normal . [facility] Comment on above: Performed By: #### P TT, HCGQNT, CBC, PT, T4F, A1C WTH eA, TSH3 #### [address] Neutrophils (Bld) [#/Vol] 5.0 10*3/uL Normal 1.8-7.7 [facility] Comment on above: Performed By: #### P TT, HCGQNT, CBC, PT, T4F, A1C WTH eA, TSH3 #### [address] Neutrophils/100 WBC (Bld) 63.1 % Normal . [facility] Comment on above: Performed By: #### P TT, HCGQNT, CBC, PT, T4F, A1C WTH eA, TSH3 #### [address] NRBC% 0.0 /100{WBC} Normal 0-0.5 [facility] Comment on above: Performed By: #### P TT, HCGQNT, CBC, PT, T4F, A1C WTH eA, TSH3 #### [address] Platelet mean volume (Bld) [Entitic vol] 11.1 fL High 6.3-10.7 [facility] Comment on above: Performed By: #### P TT, HCGQNT, CBC, PT, T4F, A1C WTH eA, TSH3 #### [facility] [address] Platelets (Bld) [#/Vol] 187 10*3/uL Normal 150-450 [facility] Comment on above: Performed By: #### P TT, HCGQNT, CBC, PT, T4F, A1C WTH eA, TSH3 #### [facility] [address] [place] [address] [place] RBC (Bld) [#/Vol] 4.82 10*6/uL Normal 3.60-5.00 [facility] Comment on above: Performed By: #### P TT, HCGQNT, CBC, PT, T4F, A1C WTH eA, TSH3 #### [facility] [address] WBC (Bld) [#/Vol] 7.9 10*3/uL Normal 3.8-11.6 [facility] Comment on above: Performed By: #### P TT, HCGQNT, CBC, PT, T4F, A1C WTH eA, TSH3 #### [facility] [address] Eosinophils Auto (Bld) [#/Vo l]Ordered By: Clarke Hu on 02-24-2024 Eosinophils (Bld) [#/Vol] 0.0 10*3/uL 0.0-0.45 [facility] Eosinophils/100 WBC Auto (Bl d)Ordered By: Clarke Hu on 02-24-2024 Eosinophils/100 WBC (Bld) 0.2 % . [facility] Erythrocyte distribution wid th Auto (RBC) [Ratio]Ordered By: Clarke Hu on 02-24-2024 Erythrocyte distribution width (RBC) [Ratio] 15.2 % 11.9-15.3 [facility] Free T4 (Free Thyroxine)on 0 02-24-2024 Free T4 [Mass/Vol] 0.82 ng/dL Normal 0.61-1.12 [facility] Comment on above: Performed By: #### P TT, HCGQNT, CBC, PT, T4F, A1C WTH eA, TSH3 #### [facility] [address] Glucose mean value [Mass/vol ume] in Blood Estimated from glycated hemoglobinOrdered By: Clarke Hu on 02-24-2024 Average glucose Estimated from glycated hemoglobin (Bld) [Mass/Vol] 100 mg/dL [facility] HCG,Quantitativeon 4 HCG,Quantitative 791.11 m[iU]/mL Normal [facility] Comment on above: Result Comment: Appr oximate Approximate hCG Gestational Age Range (mIU/ml) (weeks) 0.2-1 5-50 1-2 50-500 2-3 100-5,000 3-4 500-10,000 4-5 1,000-50,000 5-6 10,000-100,000 6-8 15,000-200,000 8-12 10,000-100,000 PERFORMED BY: [place] [address] PATHOLOGIST SAFETY SCIENTIST ALEN PRICE M.D. Performed By: #### P TT, HCGQNT, CBC, PT, T4F, A1C [facility], [facility] #### [facility] [address] Hematocrit Auto (Bld) [Volum e fraction]Ordered By: Clarke Hu on 02-24-2024 Hematocrit (Bld) [Volume fraction] 36.9 % 34.0-46.4 [facility] Hemoglobin A1c percentageOrd ered By: Clarke Hu on 02-24-2024 HbA1c (Bld) [Mass fraction] 5.1 % 4.3-5.6 [facility] Comment on above: Increased risk for d iabetes: 5.7 - 6.4diabetes: >6.4glycemic control for adults with diabetes: <7.0 Hemoglobin [Mass/volume] in BloodOrdered By: Clarke Hu on 02-24-2024 Hemoglobin (Bld) [Mass/Vol] 11.7 g/dL 11.8-15.4 [facility] INR in Platelet poor plasma by Coagulation assayOrdered By: Clarke Hu on 02-24-2024 INR Coag (PPP) [Relative time] 1.1 {INR} [facility] Comment on above: INR Therapeutic Rang [...] RBC Auto (Bld) [#/Vol] 7.9 10*3/uL 3.8-11.6 [facility] Lymphocytes Auto (Bld) [#/Vo l]Ordered By: Clarke Hu on 02-24-2024 Lymphocytes (Bld) [#/Vol] 2.1 10*3/uL 1.00-4.8 [facility] Lymphocytes/100 WBC Auto (Bl d)Ordered By: Clarke Hu on 02-24-2024 Lymphocytes/100 WBC (Bld) 26.9 % . [facility] MCH Auto (RBC) [Entitic mass ]Ordered By: Clarke Hu on 02-24-2024 MCH (RBC) [Entitic mass] 24.4 pg 24.7-34.3 [facility] MCHC Auto (RBC) [Mass/Vol]Or dered By: Clarke Hu on 02-24-2024 MCHC (RBC) [Mass/Vol] 31.8 g/dL 32.0-35.0 [facility] MCV Auto (RBC) [Entitic vol] Ordered By: Clarke Hu on 02-24-2024 MCV (RBC) [Entitic vol] 76.5 fL 80-100 [facility] Monocytes Auto (Bld) [#/Vol] Ordered By: Clarke Hu on 02-24-2024 Monocytes (Bld) [#/Vol] 0.7 10*3/uL 0.0-0.8 [facility] Monocytes/100 WBC Auto (Bld) Ordered By: Clarke Hu on 02-24-2024 Monocytes/100 WBC (Bld) 9.3 % . [facility] Neutrophils Auto (Bld) [#/Vo l]Ordered By: Clarke Hu on 02-24-2024 Neutrophils (Bld) [#/Vol] 5.0 10*3/uL 1.8-7.7 [facility] Neutrophils/100 WBC Auto (Bl d)Ordered By: Clarke Hu on 02-24-2024 Neutrophils/100 WBC (Bld) 63.1 % . [facility] Nucleated erythrocytes [Pres ence] in Blood by Automated countOrdered By: Clarkeshannan Hu on 02-24-2024 Nucleated RBC Auto Ql (Bld) 0.0 /100{WBC} 0-0.5 [facility] Partial Thromboplastin Timeo n 02-24-2024 aPTT Coag (Bld) [Time] 33.7 s Normal 25.1-36.5 [facility] Comment on above: Result Comment: A he matocrit value greater than 55% may lead to inaccurate results in coagulation testing. Patients having hematocrit values >55% require a special collection tube for coagulation studies. Please contact the laboratory at [phone] for redraw instructions. PERFORMED BY: [place] [address] PATHOLOGIST SAFETY SCIENTIST ALEN PRICE M.D. Performed By: #### P TT, HCGQNT, CBC, PT, T4F, A1C WTH eA, TSH3 #### [facility] [address] [place] [address] Platelet mean volume Auto (B ld) [Entitic vol]Ordered By: Clarke Hu on 02-24-2024 Platelet mean volume (Bld) [Entitic vol] 11.1 fL 6.3-10.7 [facility] Platelets Auto (Bld) [#/Vol] Ordered By: Clarke Hu on 02-24-2024 Platelets (Bld) [#/Vol] 187 10*3/uL 150-450 [facility] Prothrombin Time INRon 02-23 INR Coag (PPP) [Relative time] 1.1 {INR} Normal [facility] Comment on above: Result Comment: [...] P TT, HCGQNT, CBC, PT, T4F, A1C [facility] eA, TSH3 #### [facility] [address] [id number] [facility] PT Coag (PPP) [Time] 12.2 s Normal 9.0-12.9 [facility] Comment on above: Result Comment: A he matocrit value greater than 55% may lead to inaccurate results in coagulation testing. Patients having hematocrit values >55% require a special collection tube for coagulation studies. Please contact the laboratory at [phone] for redraw instructions. Performed By: #### P TT, HCGQNT, CBC, PT, T4F, A1C [facility] eA, TSH3 #### [facility] [address] [id number] [facility] Prothrombin time (PT)Ordered By: Clarke Hu on 02-24-2024 PT Coag (PPP) [Time] 12.2 s 9.0-12.9 [facility] Comment on above: A hematocrit value g reater than 55% may lead to inaccurate results in coagulation testing. Patients having hematocrit values >55% require a special collection tube for coagulation studies. Please contact the laboratory at [phone] for redraw instructions. RBC Auto (Bld) [#/Vol]Ordere d By: Clarke Hu on 02-24-2024 RBC (Bld) [#/Vol] 4.82 10*6/uL 3.60-5.00 [facility] Thyroid Stimulating Hormoneo n 02-24-2024 TSH Qn 0.96 m[IU]/L Normal 0.45-5.33 [facility] Comment on above: Performed By: #### P TT, HCGQNT, CBC, PT, T4F, A1C W[facility] eA, TSH3 #### [facility] [address] Thyrotropin [Units/volume] i n Serum or PlasmaOrdered By: Clarke Hu on 02-24-2024 TSH Qn 0.96 m[IU]/L 0.45-5.33 [facility] Thyroxine (T4) free [Mass/vo lume] in Serum or PlasmaOrdered By: Clarke Hu on 02-24-2024 Free T4 [Mass/Vol] 0.82 ng/dL 0.61-1.12 [facility] WBC Auto (Bld) [#/Vol]Ordere d By: Clarke Hu on 02-24-2024 WBC (Bld) [#/Vol] 7.9 10*3/uL 3.8-11.6 [facility] CNPNon 02-18-2024 CNPN Telephone (NEMN) ----- SMOOTH MARTINEZ F ([id number]) 1985 F Date Time Provider Department 02/18/24 MIRNA BAXTER During your visit today, we recorded the following information about you: Diana Garcia 02/18/2024 8:55 AM Signed [place] Call Name of caller : IrisDonte [facility] Relationship to patient: Self Return call phone number : [phone] Reason for call : Would like a [...] Date Reviewed: 01/19/2024 Reviewed by: Kaitlyn Forbes, remedial teacher - Fully Assessed Reason for Visit: Patient [...] (FLONASE) 50 mcg/actuation nasal spray Use 1 [place] in each nostril once daily. Problem List [...] Status:Closed by MIRNA BAXTER on 02/18/24 Normal [facility] CNPNon 02-03-2024 CNPN Telephone (NEMSMN) ----- SMOOTH MARTINEZ F ([id number]) 1985 F Date Time Provider Department 02/03/24 MIRNA BAXTER During your visit today, we recorded the following information about you: Clarice Zepeda HUC 02/03/2024 1:33 PM Signed [place] Call Name of caller : Iris Devika Relationship to patient: [facility] Return call phone number : [phone] Reason for call : Other : Brief description of concern : Has follow up questions Mirna Baxter LSW 02/04/2024 9:37 AM Signed Returned BROOKLYN Simmons's call. Iris stated pt was approved for a [facility] aide one day a week for 45 min to assist with additonal care needs. Iris is requesting an order from the doctor to start care. I will e-mail Iris the order when completed. DEZ Archer, OUTPATIENT PHYSICAL THERAPIST [facility] Social Work Allergies As of Date: [...] Date Reviewed: 01/19/2024 Reviewed by: Kaitlyn Forbes, remedial teacher - Fully Assessed Reason for Visit: Patient [...] (FLONASE) 50 mcg/actuation nasal spray Use 1 [place] in each nostril once daily. Problem List [...] Status:Closed by MIRNA BAXTER on 02/04/24 Normal [facility] MR Thoracic spine WO and W c ontrast Joe 01-19-2024 [facility] MRI THORACIC SPINE WO/W IVCO Non 01-19-2024 MRI THORACIC SPINE WO/W IVCON * * *Final Report* * * DATE OF EXAM: Jan 19 2024 3:15PM [facility] 0326 - MRI THORACIC SPINE WO/W IVCON [...] to suggest active or progressive disease. Manager Clinical Applications: ANGEL Transcribe Date/Time: Jan 19 2024 3:31P Dictated by : LOVE WHARTON MD This examination was interpreted and the report reviewed and electronically signed by: LOVE WHARTON MD on Jan 19 2024 3:43PM EST [id number] [facility] Telephone (NEMSMN) ----- PRISCILA MARTINEZANA F ([id number]) 1985 F Date Time Provider Department 01/05/24 MIRNA BAXTERLuís During your visit today, we recorded the following information about you: Seth Jamesiya 01/05/2024 9:56 AM Signed Wasnt able to [...] Date Reviewed: 12/25/2023 Reviewed by: Tor Hernandez APRN.WELDING MACHINE OPERATOR ULTRASONIC - Fully Assessed Reason for Visit: Appointment [...] (FLONASE) 50 mcg/actuation nasal spray Use 1 [place] in each nostril once daily. Problem List [...] Status:Closed by NADINE JAMES on 01/05/24 Normal [facility] CNOVon 12-25-2023 CNOV Office Visit (NEMSLR ) ----- SMOOTH MARTINEZ ([id number]) 1985 F Date Time Provider Department 12/25/23 11:00 AM TOR HERNANDEZ NEMSLR During your visit today, we recorded the following information about you: Pulse Blood pressure Weight Last Period 87/minute 95/67 56.8 kg 12/21/23 Tro Hernandez APRN.WELDING MACHINE OPERATOR ULTRASONIC 12/25/2023 12:09 PM [facility] FOLLOWUP/ESTABLISHED PATIENT VISIT PRINCIPAL NEUROLOGIC [...] and numbness needing a wheelchair, hospitalized at [facility] (off [place] x3 months due [...] 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, ot, 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, sw, 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, is unable [...] Flowsheet Row Office Visit from 07/23/2023 in [facility] Office Visit from 01/17/2023 in [facility] Appointment from 01/15/2023 in [facility] Upper Extremity Domain T Score 28.29 31.35 30 Lower Extremity Domain T Score 36.94 36.94 39 Cognitive Function Domain T Score 30.7 28.53 38 Positive Affect Well Being T Score -- -- -- Ability To Participate In Social Roles T Score 39.9 39.9 43 Satisfaction With Social Roles T Score 39.66 39.66 45 Neuro-QoL Symptoms (higher=worse symptoms) Flowsheet [facility] Office Visit from 07/23/2023 in [facility] Office Visit from 01/17/2023 in [facility] Appointment from 01/15/2023 in [facility] Sleep Domain T Score 69.2 68.89 [...] in prior , currently , HIV infection ([facility]), Hypertension, Infertility, female, L (more content not included)... Normal [facility] CNPNon 12-25-2023 CNPN Telephone (HCSIND) ----- SMOOTH MARTINEZ ([id number]) 1985 F Date Time Provider Department 12/25/23 TIKI ELLIOTT HCSIND During your visit today, we recorded the following information about you: Tiki Elliott 12/25/2023 2:08 PM Addendum Spoke with Roxy from [facility] and accepted the patient for Home Care. Thank you for the referral of your patient to [facility]. At this time, we are unable to accommodate your patient's needs in a safe and timely fashion. In order to help your patient receive quality home care, we will assist in finding alternate staffing. I have forwarded the referral to [facility], and it is pending. I will notify you when we have an accepting agency. Thank you. Thank you for the referral of your patient to [facility]. At this time, we are unable to accommodate your patient's needs in a safe and timely fashion. In order to help your patient receive quality home care, we will assist in finding alternate staffing. I have forwarded the referral to [facility], and it is declined. I will notify you when we have an accepting agency. Thank you. Thank you for the referral of your patient to [facility]. At this time, we are unable to accommodate your patient's needs in a safe and timely fashion. In order to help your patient receive quality home care, we will assist in finding alternate staffing. I have forwarded the referral to [facility], and it is declined. I will [...] Date Reviewed: 12/25/2023 Reviewed by: Tor Hernandez APRN.WELDING MACHINE OPERATOR ULTRASONIC - Fully Assessed Reason for Visit: Home [...] (FLONASE) 50 mcg/actuation nasal spray Use 1 [place] in each nostril once daily. Problem List As Of Date 12/25/2023 Noted Resolved Multiple sclerosis (HCC) [G35] 11/15/2019 Chronic insomnia [F51.04] 01/04/2020 AMA (advanced maternal age) primigravida 35+, s*2020 01/11/2021 History of loop electrosurgical excision proced*2020 01/11/2021 Poor growth affecting (more content not included)... Normal [facility] HCG ( test) Ql (U)o n 12-23-2023 Interpretation and review of laboratory results Normal [facility] Preg Test, Ur Negative [facility] - Microbiology an d Antimicrobial susceptibilityon 12-23-2023 SARS-CoV-2 (COVID-19) RNA DEIRDRE+probe Ql (Unsp spec) Negative [facility] No Panel Informationon 12-23 FLU A Negative [facility] FLU B Negative [facility] Interpretation and review of laboratory results Normal [facility] Toño 11-28-2023 L Specimen: [id number] Received: 11/28/23 Status: ALLISON See Num: [id number] Spec Type: Surgical Subm Dr: Clarke Hu Tissues: A Endometrium - Curettings ([facility]) Procedures: HE/2, Gross/Micro L4 Age/ Patient Sex Location Account Attending Physician JuanSmooth Pérez 38/F LABELL [id number] Clarke Hu SPEC NUM: [id number] RECD: 11/28/23 STATUS: ALLISON SEE NUM: [id number] ALLAN: 11/28/[address]: Clarke Hu ENTERED: 11/28/[address]: Sherry,Lab SPEC TYPE: Surgical DEPT: IDRIS [...] in one cassette labeled A1. CPT Codes 55744 Specimen: [id number] Received: 11/28/23-1309 Status: ALLISON See Num: [id number] Spec Type: Surgical Subm Dr: Clarke Hu Tissues: A Endometrium - Curettings (EMC) Procedures: HE/2, Gross/Micro L4 Patient: Smooth Martinez [id number] (Continued) Signed (signature on file) Edu Watkins MD 12/01/232158 [place] [facility] CNSWon 10-13-2023 [facility] Social Work (HEMASA) ----- SMOOTH MARTINEZ ([id number]) 1985 F Date Time Provider Department 10/13/23 [...] Date Reviewed: 09/25/2023 Reviewed by: Marci Tracy, RN - Fully Assessed Prescriptions as of [...] (FLONASE) 50 mcg/actuation nasal spray Use 1 [place] in each nostril once daily. Problem List [...] Status:Closed by ALEXANDRA HOGAN on 10/13/23 Normal [facility] CBC W Auto Differential pane l (Bld)on 09-25-2023 Basophils (Bld) [#/Vol] 0.03 10*3/uL <0.11 k/uL [facility] Basophils/100 WBC (Bld) 0.8 % [facility] Differential cell count method Nom (Bld) Auto [facility] Eosinophils (Bld) [#/Vol] 0.07 10*3/uL <0.46 k/uL [facility] Eosinophils/100 WBC (Bld) 1.8 % [facility] Erythrocyte distribution width (RBC) [Ratio] 17.1 % High 11.5 - 15.0 % [facility] Hematocrit (Bld) [Volume fraction] 41.0 % 36.0 - 46.0 % [facility] Hemoglobin (Bld) [Mass/Vol] 12.5 g/dL 11.5 - 15.5 g/dL [facility] Immature granulocytes (Bld) [#/Vol] <0.10 k/uL [facility] Immature granulocytes/100 WBC (Bld) 0.0 % [facility] Lymphocytes (Bld) [#/Vol] 2.63 10*3/uL 1.00 - 4.00 k/uL [facility] Lymphocytes/100 WBC (Bld) 66.4 % [facility] MCH (RBC) [Entitic mass] 23.7 pg Low 26.0 - 34.0 pg [facility] MCHC (RBC) [Mass/Vol] 30.5 g/dL 30.5 - 36.0 g/dL [facility] MCV (RBC) [Entitic vol] 77.7 fL Low 80.0 - 100.0 fL [facility] Monocytes (Bld) [#/Vol] 0.51 10*3/uL <0.87 k/uL [facility] Monocytes/100 WBC (Bld) 12.9 % [facility] Neutrophils (Bld) [#/Vol] 0.72 10*3/uL Low 1.45 - 7.50 k/uL [facility] Neutrophils/100 WBC (Bld) 18.1 % [facility] Nucleated RBC (Bld) [#/Vol] <0.01 k/uL [facility] Nucleated RBC/100 WBC (Bld) [Ratio] 0.0 /100 WBC [facility] Platelet mean volume (Bld) [Entitic vol] [facility] Platelets (Bld) [#/Vol] 179 10*3/uL 150 - 400 k/uL [facility] RBC (Bld) [#/Vol] 5.28 10*6/uL High 3.90 - 5.2 0 m/uL [facility] WBC (Bld) [#/Vol] 3.96 10*3/uL 3.70 - 11. 00 k/uL [facility] Basophils (Bld) [#/Vol] 0.03 10*3/uL Normal <0.11 [facility] Comment on above: Order Comment: Speci men Type: BLOOD SPECIMENOrdering Facility: [facility] Address: [address] [place] [address] Performed By: #### 5 7021-8 ####[facility] LABCLIA [id number] [place] [address] Basophils/100 WBC (Bld) 0.8 % Normal [facility] Comment on above: Order Comment: Speci men Type: BLOOD SPECIMENOrdering Facility: [facility] Address: [address] [place] [address] Performed By: #### 5 7021-8 ####[facility] LABCLIA [id number] [place] [address] Differential cell count method Nom (Bld) Auto Normal [facility] Comment on above: Order Comment: Speci men Type: BLOOD SPECIMENOrdering Facility: [facility] Address: [address] [place] [address] Performed By: #### 5 7021-8 ####[facility] LABCLIA [id number] [place] [address] Eosinophils (Bld) [#/Vol] 0.07 10*3/uL Normal <0.46 [facility] Comment on above: Order Comment: Speci men Type: BLOOD SPECIMENOrdering Facility: [facility] Address: [address] [place] [address] Performed By: #### 5 7021-8 ####[facility] LABCLIA [id number] [place] [address] Eosinophils/100 WBC (Bld) 1.8 % Normal [facility] Comment on above: Order Comment: Speci men Type: BLOOD SPECIMENOrdering Facility: [facility] Address: [address] [place] [address] Performed By: #### 5 7021-8 ####[facility] LABCLIA [id number] [place] [address] Erythrocyte distribution width (RBC) [Ratio] 17.1 % High 11.5-15.0 [facility] Comment on above: Order Comment: Speci men Type: BLOOD SPECIMENOrdering Facility: [facility] Address: [address] [place] [address] Performed By: #### 5 7021-8 ####[facility] LABCLIA [id number] [place] [address] Hematocrit (Bld) [Volume fraction] 41.0 % Normal 36.0-46.0 [facility] Comment on above: Order Comment: Speci men Type: BLOOD SPECIMENOrdering Facility: [facility] Address: [address] [place] [address] Performed By: #### 5 7021-8 ####[facility] LABCLIA [id number] [place] [address] Hemoglobin (Bld) [Mass/Vol] 12.5 g/dL Normal 11.5-15.5 [facility] Comment on above: Order Comment: Speci men Type: BLOOD SPECIMENOrdering Facility: [facility] Address: [address] [place] [address] Performed By: #### 5 7021-8 ####[facility] LABCLIA [id number] [place] [address] Immature granulocytes (Bld) [#/Vol] 10*3/uL Normal <0.10 [facility] Comment on above: Order Comment: Speci men Type: BLOOD SPECIMENOrdering Facility: [facility] Address: [address] [place] [address] Performed By: #### 5 7021-8 ####[facility] LABCLIA [id number] [place] [address] Immature granulocytes/100 WBC (Bld) 0.0 % Normal [facility] Comment on above: Order Comment: Speci men Type: BLOOD SPECIMENOrdering Facility: [facility] Address: [address] [place] [address] Performed By: #### 5 7021-8 ####[facility] LABCLIA [id number] [place] [address] Lymphocytes (Bld) [#/Vol] 2.63 10*3/uL Normal 1.00-4.00 [facility] Comment on above: Order Comment: Speci men Type: BLOOD SPECIMENOrdering Facility: [facility] Address: [address] [place] [address] Performed By: #### 5 7021-8 ####[facility] LABCLIA [id number] [place] [address] Lymphocytes/100 WBC (Bld) 66.4 % Normal [facility] Comment on above: Order Comment: Speci men Type: BLOOD SPECIMENOrdering Facility: [facility] Address: [address] [place] [address] Performed By: #### 5 7021-8 ####[facility] LABCLIA [id number] [place] [address] MCH (RBC) [Entitic mass] 23.7 pg Low 26.0-34.0 [facility] Comment on above: Order Comment: Speci men Type: BLOOD SPECIMENOrdering Facility: [facility] Address: [address] [place] [address] Performed By: #### 5 7021-8 ####[facility] LABIA [id number] [place] [address] MCHC (RBC) [Mass/Vol] 30.5 g/dL Normal 30.5-36.0 [facility] Comment on above: Order Comment: Speci men Type: BLOOD SPECIMENOrdering Facility: [facility] Address: [address] [place] [address] Performed By: #### 5 7021-8 ####[facility] LABIA [id number] [place] [address] MCV (RBC) [Entitic vol] 77.7 fL Low 80.0-100.0 [facility] Comment on above: Order Comment: Speci men Type: BLOOD SPECIMENOrdering Facility: [facility] Address: [address] [place] [address] Performed By: #### 5 7021-8 ####[facility] LABIA [id number] [place] [address] Monocytes (Bld) [#/Vol] 0.51 10*3/uL Normal <0.87 [facility] Comment on above: Order Comment: Speci men Type: BLOOD SPECIMENOrdering Facility: [facility] Address: [address] [place] [address] Performed By: #### 5 7021-8 ####[facility] LABIA [id number] [place] [address] Monocytes/100 WBC (Bld) 12.9 % Normal [facility] Comment on above: Order Comment: Speci men Type: BLOOD SPECIMENOrdering Facility: [facility] Address: [address] [place] [address] Performed By: #### 5 7021-8 ####[facility] LABCLIA [id number] [place] [address] Neutrophils (Bld) [#/Vol] 0.72 10*3/uL Low 1.45-7.50 [facility] Comment on above: Order Comment: Speci men Type: BLOOD SPECIMENOrdering Facility: [facility] Address: [address] [place] [address] Performed By: #### 5 7021-8 ####[facility] LABCLIA [id number] [place] [address] Neutrophils/100 WBC (Bld) 18.1 % Normal [facility] Comment on above: Order Comment: Speci men Type: BLOOD SPECIMENOrdering Facility: [facility] Address: [address] [place] [address] Performed By: #### 5 7021-8 ####[facility] LABCLIA [id number] [place] [address] Nucleated RBC (Bld) [#/Vol] 10*3/uL Normal <0.01 [facility] Comment on above: Order Comment: Speci men Type: BLOOD SPECIMENOrdering Facility: [facility] Address: [address] [place] [address] Performed By: #### 5 7021-8 ####[facility] LABCLIA [id number] [place] [address] Nucleated RBC/100 WBC (Bld) [Ratio] 0.0 /100 WBC Normal [facility] Comment on above: Order Comment: Speci men Type: BLOOD SPECIMENOrdering Facility: [facility] Address: [address] [place] [address] Performed By: #### 5 7021-8 ####[facility] LABCLIA [id number] [place] [address] Platelet mean volume (Bld) [Entitic vol] Normal [facility] Comment on above: Order Comment: Speci men Type: BLOOD SPECIMENOrdering Facility: [facility] Address: [address] [place] [address] Result Comment: Unab le to Report. Performed By: #### 5 7021-8 ####[facility] LABCLIA [id number] [place] [address] Platelets (Bld) [#/Vol] 179 10*3/uL Normal 150-400 [facility] Comment on above: Order Comment: Speci men Type: BLOOD SPECIMENOrdering Facility: [facility] [facility] Address: [address] [place] [address] Result Comment: Resu lts checked and verified.No clot detected. Performed By: #### 5 7021-8 ####[facility] LABIA [id number] [place] [address] RBC (Bld) [#/Vol] 5.28 10*6/uL High 3.90-5.20 [facility] Comment on above: Order Comment: Speci men Type: BLOOD SPECIMENOrdering Facility: [facility] Address: [address] [place] [address] Performed By: #### 5 7021-8 ####[facility] LABIA [id number] [place] [address] WBC (Bld) [#/Vol] 3.96 10*3/uL Normal 3.70-11.00 [facility] Comment on above: Order Comment: Speci men Type: BLOOD SPECIMENOrdering Facility: [facility] Address: [address] [place] [address] Performed By: #### 5 7021-8 ####[facility] LABIA [id number] [place] [address] CD19 ABSOLUTE COUNTon 2022 CD3-CD19+ cells (Bld) [#/Vol] 0 cells/uL Low 75-660 [facility] Comment on above: Order Comment: Speci men Type: BLOOD SPECIMENOrdering Facility: [facility] Address: [address] [place] [address] Performed By: #### A BS19 ####[facility] LABIA [id number] [address] [place] CD3-CD19+ cells/100 cells (Bld) 0 % Low 5-22 [facility] Comment on above: Order Comment: Speci men Type: BLOOD SPECIMENOrdering Facility: [facility] Address: [address] [place] [address] Performed By: #### A BS19 ####[facility] LABIA [id number] [place] [address] [place] Lymphocytes/100 WBC FC (Bld) Normal [facility] Comment on above: Order Comment: Speci men Type: BLOOD SPECIMENOrdering Facility: [facility] Address: [address] [place] [address] Performed By: #### A BS19 ####[facility] LABIA [id number] [address] OF [place] CNPLilli 09-25-2023 CNPN Telephone (HEMTSA) ----- SMOOTH MARTINEZ F ([id number]) 1985 F Date Time Provider Department 09/25/23 KATHERYN ESPINO HEMLINO During your visit today, we recorded the following information about you: Katheryn Espino RN 09/25/2023 10:40 AM Signed Smooth is in our [place] clinic for her Ocrevus today. I just wanted to point out her ANC has dropped to 0.72 from today's cbc and this doesn't look normal for her. Patient feels fine with no complaints and no fever. Thank you, Katheryn Srinivas, RN Allergies As of Date: 09/25/2023 Noted [...] [D70.2] Order(s):CBC + DIFF [SQCBCDIF] Order #: [id number] FUTURE Prescriptions as of 09/29/2023 - metroNIDAZOLE [...] (FLONASE) 50 mcg/actuation nasal spray Use 1 [place] in each nostril once daily. Problem List [...] Status:Closed by KATHERYN ESPINO on 09/29/23 Normal [facility] Comprehensive metabolic 2000 panelon 09-25-2023 Albumin [Mass/Vol] 4.5 g/dL 3.9 - 4.9 g/dL [facility] ALP [Catalytic activity/Vol] 58 U/L 34 - 123 U/L [facility] ALT [Catalytic activity/Vol] 11 U/L 7 - 38 U/L [facility] Anion gap [Moles/Vol] 9 mmol/L 9 - 18 mmol/L [facility] AST [Catalytic activity/Vol] 17 U/L 13 - 35 U/L [facility] Bilirubin [Mass/Vol] 0.5 mg/dL 0.2 - 1 .3 mg/dL [facility] Calcium [Mass/Vol] 9.5 mg/dL 8.5 - 10. 2 mg/dL [facility] Chloride [Moles/Vol] 106 mmol/L High 97 - 10 5 mmol/L [facility] CO2 [Moles/Vol] 26 mmol/L 22 - 30 mmol/L [facility] Creatinine [Mass/Vol] 0.95 mg/dL 0.58 - 0.96 mg/dL [facility] Estimated Glomerular Filtration Rate 79 mL/min/1.73m >=60 mL/min/1.73m [facility] Glucose [Mass/Vol] 89 mg/dL 74 - 99 mg/dL [facility] Potassium [Moles/Vol] 3.6 mmol/L Low 3.7 - 5.1 mmol/L [facility] Protein [Mass/Vol] 7.4 g/dL 6.3 - 8.0 g/dL [facility] Sodium [Moles/Vol] 141 mmol/L 136 - 144 mmol/L [facility] Urea nitrogen [Mass/Vol] 14 mg/dL 7 - 21 mg/dL [facility] Albumin [Mass/Vol] 4.5 g/dL Normal 3.9-4.9 [facility] Comment on above: Order Comment: Speci men Type: BLOOD SPECIMENOrdering Facility: [facility] Address: [address] [place] [address] Performed By: #### 2 4323-8 ####[facility] LABCLIA [id number] [place] [address] ALP [Catalytic activity/Vol] 58 U/L Normal 34-123 [facility] Comment on above: Order Comment: Speci men Type: BLOOD SPECIMENOrdering Facility: [facility] Address: [address] [place] [address] Performed By: #### 2 4323-8 ####[facility] LABCLIA [id number] [place] [address] ALT [Catalytic activity/Vol] 11 U/L Normal 7-38 [facility] Comment on above: Order Comment: Speci men Type: BLOOD SPECIMENOrdering Facility: [facility] Address: [address] [place] [address] Performed By: #### 2 4323-8 ####[facility] LABCLIA [id number] [place] [address] Anion gap [Moles/Vol] 9 mmol/L Normal 9-18 [facility] Comment on above: Order Comment: Speci men Type: BLOOD SPECIMENOrdering Facility: [facility] Address: [address] [place] [address] Performed By: #### 2 4323-8 ####[facility] LABCLIA [id number] [place] [address] AST [Catalytic activity/Vol] 17 U/L Normal 13-35 [facility] Comment on above: Order Comment: Speci men Type: BLOOD SPECIMENOrdering Facility: [facility] Address: [address] [place] [address] Performed By: #### 2 4323-8 ####[facility] LABCLIA [id number] [place] [address] Bilirubin [Mass/Vol] 0.5 mg/dL Normal 0.2-1.[address] [facility] Comment on above: Order Comment: Speci men Type: BLOOD SPECIMENOrdering Facility: [facility] Address: [address] [place] [address] Performed By: #### 2 4323-8 ####[facility] LABCLIA [id number] [place] [address] Calcium [Mass/Vol] 9.5 mg/dL Normal 8.5-10.2 [facility] Comment on above: Order Comment: Speci men Type: BLOOD SPECIMENOrdering Facility: [facility] Address: [address] [place] [address] Performed By: #### 2 4323-8 ####[facility] LABCLIA [id number] [place] [address] Chloride [Moles/Vol] 106 mmol/L High 97-[address] [facility] Comment on above: Order Comment: Speci men Type: BLOOD SPECIMENOrdering Facility: [facility] Address: [address] [place] [address] Performed By: #### 2 4323-8 ####[facility] LABCLIA [id number] [place] [address] CO2 [Moles/Vol] 26 mmol/L Normal 22-30 [facility] Comment on above: Order Comment: Speci men Type: BLOOD SPECIMENOrdering Facility: [facility] Address: [address] [place] [address] Performed By: #### 2 4323-8 ####[facility] LABCLIA [id number] [place] [address] Creatinine [Mass/Vol] 0.95 mg/dL Normal 0.58-0.96 [facility] Comment on above: Order Comment: Speci men Type: BLOOD SPECIMENOrdering Facility: [facility] Address: [address] [place] [address] Performed By: #### 2 4323-8 ####[facility] LABCLIA [id number] [place] [address] Creatinine and Glomerular filtration rate.predicted panel (S/P/Bld) 79 mL/min/1.73m??? Normal >=60 [facility] Comment on above: Order Comment: Rylee chauhan Type: BLOOD SPECIMENOrdering Facility: [facility] Address: [address] [place] [address] Result Comment: Priscila mated Glomerular Filtration Rate [...] actual GFR. Performed By: #### 2 4323-8 ####[facility] LABCLIA [id number] [place] [address] Glucose [Mass/Vol] 89 mg/dL Normal 74-99 [facility] Comment on above: Order Comment: Rylee chauhan Type: BLOOD SPECIMENOrdering Facility: [facility] Address: [address] [place] [address] Result Comment: The [place] [employer] (ADA) provides guidance for cutoff [...] Standards of Medical Care in Diabetes 2016, [place] [employer]. Diabetes Care. 2016.39(Suppl 1). Performed By: #### 2 4323-8 ####[facility] LABCLIA [id number] [place] [address] Potassium [Moles/Vol] 3.6 mmol/L Low 3.7-5.1 [facility] Comment on above: Order Comment: Speci men Type: BLOOD SPECIMENOrdering Facility: [facility] Address: [address] [place] [address] Performed By: #### 2 4323-8 ####[facility] LABCLIA [id number] [place] [address] Protein [Mass/Vol] 7.4 g/dL Normal 6.3-8.0 [facility] Comment on above: Order Comment: Speci men Type: BLOOD SPECIMENOrdering Facility: [facility] Address: [address] [place] [address] Performed By: #### 2 4323-8 ####[facility] LABCLIA [id number] [place] [address] Sodium [Moles/Vol] 141 mmol/L Normal 136-144 [facility] Comment on above: Order Comment: Speci men Type: BLOOD SPECIMENOrdering Facility: [facility] Address: [address] [place] [address] Performed By: #### 2 4323-8 ####[facility] LABCLIA [id number] [place] [address] Urea nitrogen [Mass/Vol] 14 mg/dL Normal 7-21 [facility] Comment on above: Order Comment: Speci men Type: BLOOD SPECIMENOrdering Facility: [facility] Address: [address] [place] [address] Performed By: #### 2 4323-8 ####[facility] LABIA [id number] [place] [address] HBV core Ab Ser Qlon 023 HBV core Ab Ql (S) Negative Normal Negative [facility] Comment on above: Order Comment: Speci men Type: BLOOD SPECIMENOrdering Facility: [facility] Address: [address] [place] [address] Result Comment: No e vidence of current or past infection with Hepatitis B virus. Should recent infection be suspected, repeat testing may be considered 3-4 weeks after this draw. Performed By: #### 5 195-3, 91111-1, 74581-7 ####[facility] LABCLIA [id number] [place] [address] [place] HBV surface Ab Ql (S)on 09-10 HBV surface Ab Qn (S) 528.76 mIU/mL [facility] HBV surface Ab Qn (S) 528.76 mIU/mL Normal [facility] Comment on above: Order Comment: Speci men Type: BLOOD SPECIMENOrdering Facility: [facility] Address: [address] [place] [address] Result Comment: <8 m IU/mL: No serological evidence of immunity to Hepatitis B Virus. >/= 8 to <12 mIU/mL: No serological evidence of immunity to Hepatitis B Virus. >/= 12 mIU/mL: Consistent with serological evidence of immunity to Hepatitis B Virus. Performed By: #### 5 195-3, 68351-0, 04867-6 ####[facility] [id number] [address] OF [facility] HBV surface Ab Ser Qlon 09-10 HBV surface Ab Ql (S) Positive Normal [facility] Comment on above: Order Comment: Speci men Type: BLOOD SPECIMENOrdering Facility: [facility] Address: [address] [place] [address] Result Comment: Cons istent with serological evidence of immunity to Hepatitis B Virus. Performed By: #### 5 195-3, 93238-3, 91665-0 ####[facility] LABIA [id number] [address] [place] HBV surface Ag Ser Qlon 09-10 HBV surface Ag Ql (S) Negative Normal Negative [facility] Comment on above: Order Comment: Speci men Type: BLOOD SPECIMENOrdering Facility: [facility] Address: [facility] [place] [address] Performed By: #### 5 195-3, 84775-8, 60257-2 ####[facility] LABIA [id number] [place] [address] [place] HCV Ab Ser Qlon 09-25-2023 HCV Ab Ql (S) Negative Normal Negative [facility] Comment on above: Order Comment: Speci men Type: BLOOD SPECIMENOrdering Facility: [facility] Address: [address] [place] [address] Result Comment: The result suggests no evidence of active infection with Hepatitis C virus. Should recent infection be suspected, repeat testing may be considered 4-6 weeks after this draw. Performed By: #### 1 6128-1 ####[facility] LABCLIA [id number] [place] [address] [place] HEP B CORE AB TOTALon 2022 HBV core Ab Ql (S) Negative Negative [facility] HEP B SURF ABon 09-25-2023 HBV surface Ab Ql (S) Positive [facility] HEP B SURF AG SCRNon 023 HBV surface Ag Ql (S) Negative Negative [facility] HEPATITIS C ANTIBODY IA WITH CONFIRMATIONon 09-25-2023 HCV Ab Ql (S) Negative Negative [facility] B-HCG SerPl-aCncon 3 HCG.beta subunit Qn m[IU]/mL Normal <5.0 [facility] Comment on above: Order Comment: Speci men Type: BLOOD SPECIMENOrdering Facility: [facility] Address: [address] [place] [address] Result Comment: Nega tirebecca Performed By: #### 2 1198-7 ####[facility] LABIA [id number] [place] [address] [place] IgG SerPl-mCncon 09-24-2023 IgG [Mass/Vol] 1281 mg/dL Normal 700-1600 [facility] Comment on above: Order Comment: Speci men Type: BLOOD SPECIMENOrdering Facility: [facility] Address: [address] [place] [address] Performed By: #### 2 465-3, 2472-9 ####[facility] LABOZZY [id number] [place] [address] [place] IgM SerPl-mCncon 09-24-2023 IgM [Mass/Vol] 128 mg/dL Normal 40-230 [facility] Comment on above: Order Comment: Speci men Type: BLOOD SPECIMENOrdering Facility: [facility] Address: [address] [place] [address] Performed By: #### 2 465-3, 2472-9 ####[facility] LABOZZY [id number] [place] [address] [place] CNPNon 08-27-2023 [facility] Telephone ([facility]) ----- SMOOTH MARTINEZ ([id number]) 1985 F Date Time Provider Department 08/27/[address] [facility] During your visit today, we [...] Primary Visit Diagnosis:Uterine polyp [N84.0] Order(s):CONSULT TO [facility] [employer] [facility] [9081] Order #: [id number]: 1 FUTURE Prescriptions as of 08/27/2023 - [...] (FLONASE) 50 mcg/actuation nasal spray Use 1 [place] in each nostril once daily. Problem List [...] Status:Closed by JANICE LANE on 08/27/23 Normal [facility] PELVIC US WHIon 08-26-2023 [facility] CBC W Auto Differential pane l (Bld)on 08-19-2023 Basophils (Bld) [#/Vol] 0.05 10*3/uL Normal <0.11 [facility] Comment on above: Order Comment: Speci men Type: BLOOD SPECIMENOrdering Facility: [facility] Address: [address] [place] [address] Performed By: #### 5 7021-8 ####[facility] LABCLIA [id number] [place] [id number] [place] Basophils/100 WBC (Bld) 0.7 % Normal [facility] Comment on above: Order Comment: Speci men Type: BLOOD SPECIMENOrdering Facility: [facility] Address: [address] [place] [address] Performed By: #### 5 7021-8 ####[facility] LABCLIA [id number] [place] [address] [place] Differential cell count method Nom (Bld) Auto Normal [facility] Comment on above: Order Comment: Speci men Type: BLOOD SPECIMENOrdering Facility: [facility] Address: [address] [place] [address] Performed By: #### 5 7021-8 ####[facility] LABIA [id number] [place] [address] [place] Eosinophils (Bld) [#/Vol] 0.10 10*3/uL Normal <0.46 [facility] Comment on above: Order Comment: Speci men Type: BLOOD SPECIMENOrdering Facility: [facility] Address: [address] [place] [address] Performed By: #### 5 7021-8 ####[facility] LABCLIA [id number] [place] [id number] [place] Eosinophils/100 WBC (Bld) 1.5 % Normal [facility] Comment on above: Order Comment: Speci men Type: BLOOD SPECIMENOrdering Facility: [facility] Address: [address] [place] [address] Performed By: #### 5 7021-8 ####[facility] LABCLIA [id number] [place] [address] [place] Erythrocyte distribution width (RBC) [Ratio] 24.4 % High 11.5-15.0 [facility] Comment on above: Order Comment: Speci men Type: BLOOD SPECIMENOrdering Facility: [facility] Address: [address] [place] [address] Performed By: #### 5 7021-8 ####[facility] LABIA [id number] [place] [id number] [place] Hematocrit (Bld) [Volume fraction] 35.6 % Low 36.0-46.0 [facility] Comment on above: Order Comment: Speci men Type: BLOOD SPECIMENOrdering Facility: [facility] Address: [address] [place] [address] Performed By: #### 5 7021-8 ####[facility] [id number] [place] [id number] [place] Hemoglobin (Bld) [Mass/Vol] 10.6 g/dL Low 11.5-15.5 [facility] Comment on above: Order Comment: Speci men Type: BLOOD SPECIMENOrdering Facility: [facility] Address: [address] [place] [address] Performed By: #### 5 7021-8 ####[facility] LABIA [id number] [place] [id number] [place] Immature granulocytes (Bld) [#/Vol] 10*3/uL Normal <0.10 [facility] Comment on above: Order Comment: Speci men Type: BLOOD SPECIMENOrdering Facility: [facility] Address: [address] [place] [address] Performed By: #### 5 7021-8 ####[facility] LABIA [id number] [place] [id number] [place] Immature granulocytes/100 WBC (Bld) 0.3 % Normal [facility] Comment on above: Order Comment: Speci men Type: BLOOD SPECIMENOrdering Facility: [facility] Address: [address] [place] [address] Performed By: #### 5 7021-8 ####[facility] LABCLIA [id number] [place] [id number] [place] Lymphocytes (Bld) [#/Vol] 2.27 10*3/uL Normal 1.00-4.00 [facility] Comment on above: Order Comment: Speci men Type: BLOOD SPECIMENOrdering Facility: [facility] Address: [address] [place] [address] Performed By: #### 5 7021-8 ####[facility] LABIA [id number] [place] [id number] [place] Lymphocytes/100 WBC (Bld) 32.9 % Normal [facility] Comment on above: Order Comment: Speci men Type: BLOOD SPECIMENOrdering Facility: [facility] Address: [address] [place] [address] Performed By: #### 5 7021-8 ####[facility] LABIA [id number] [place] [id number] [place] MCH (RBC) [Entitic mass] 22.1 pg Low 26.0-34.0 [facility] Comment on above: Order Comment: Speci men Type: BLOOD SPECIMENOrdering Facility: [facility] Address: [address] [place] [address] Performed By: #### 5 7021-8 ####[facility] LABIA [id number] [place] [id number] [place] MCHC (RBC) [Mass/Vol] 29.8 g/dL Low 30.5-36.0 [facility] Comment on above: Order Comment: Speci men Type: BLOOD SPECIMENOrdering Facility: [facility] Address: [address] [place] [address] Performed By: #### 5 7021-8 ####[facility] LABIA [id number] [place] [id number] [place] MCV (RBC) [Entitic vol] 74.3 fL Low 80.0-100.0 [facility] Comment on above: Order Comment: Speci men Type: BLOOD SPECIMENOrdering Facility: [facility] Address: [address] [place] [address] Performed By: #### 5 7021-8 ####[facility] LABCLIA [id number] [place] [address] [place] Monocytes (Bld) [#/Vol] 0.52 10*3/uL Normal <0.87 [facility] Comment on above: Order Comment: Speci men Type: BLOOD SPECIMENOrdering Facility: [facility] Address: [address] [place] [address] Performed By: #### 5 7021-8 ####[facility] LABIA [id number] [place] [address] [place] Monocytes/100 WBC (Bld) 7.5 % Normal [facility] Comment on above: Order Comment: Speci men Type: BLOOD SPECIMENOrdering Facility: [facility] Address: [address] [place] [address] Performed By: #### 5 7021-8 ####[facility] LABIA [id number] [place] [address] [place] Neutrophils (Bld) [#/Vol] 3.93 10*3/uL Normal 1.45-7.50 [facility] Comment on above: Order Comment: Speci men Type: BLOOD SPECIMENOrdering Facility: [facility] Address: [address] [place] [address] Performed By: #### 5 7021-8 ####[facility] LABCLIA [id number] [place] [address] [place] Neutrophils/100 WBC (Bld) 57.1 % Normal [facility] Comment on above: Order Comment: Speci men Type: BLOOD SPECIMENOrdering Facility: [facility] Address: [address] [place] [address] Performed By: #### 5 7021-8 ####[facility] LABIA [id number] [place] [address] [place] Nucleated RBC (Bld) [#/Vol] 10*3/uL Normal <0.01 [facility] Comment on above: Order Comment: Speci men Type: BLOOD SPECIMENOrdering Facility: [facility] Address: [address] [place] [address] Performed By: #### 5 7021-8 ####[facility] LABIA [id number] [place] [id number] [place] Nucleated RBC/100 WBC (Bld) [Ratio] 0.0 /100 WBC Normal [facility] Comment on above: Order Comment: Speci men Type: BLOOD SPECIMENOrdering Facility: [facility] Address: [address] [place] [address] Performed By: #### 5 7021-8 ####[facility] [id number] [place] [id number] [place] Platelet mean volume (Bld) [Entitic vol] Normal [facility] Comment on above: Order Comment: Speci men Type: BLOOD SPECIMENOrdering Facility: [facility] Address: [address] [place] [address] Result Comment: Unab le to Report. Performed By: #### 5 7021-8 ####[facility] LABIA [id number] [place] [id number] [place] Platelets (Bld) [#/Vol] 213 10*3/uL Normal 150-400 [facility] Comment on above: Order Comment: Speci men Type: BLOOD SPECIMENOrdering Facility: [facility] Address: [address] [place] [address] Result Comment: No c lot detected. Performed By: #### 5 7021-8 ####[facility] LABIA [id number] [place] [id number] [place] RBC (Bld) [#/Vol] 4.79 10*6/uL Normal 3.90-5.20 [facility] Comment on above: Order Comment: Speci men Type: BLOOD SPECIMENOrdering Facility: [facility] Address: [place] [id number] Performed By: #### 5 7021-8 ####[facility] LABIA [id number] [place] [id number] [place] [facility] [place] WBC (Bld) [#/Vol] 6.89 10*3/uL Normal 3.70-11.00 [facility] Comment on above: Order Comment: Speci men Type: BLOOD SPECIMENOrdering Facility: [facility] Address: [place] [id number] Performed By: #### 5 7021-8 ####[facility] LABCLIA [id number] [place] [id number] [facility] CNOVon 08-19-2023 CNOV Office Visit (NEUR ) ----- SMOOTH MARTINEZ ([id number]) 1985 F Date Time Provider Department 08/19/23 9:00 AM GERMANIA WILKINSON [employer] [place] [facility] [employer] During your visit today, we recorded the following information about you: Pulse Blood pressure Weight Height 96/minute 104/77 56.7 kg 1.689 m Germania Wilkinson MD 08/19/2023 4:26 PM Signed [facility] New Patient Evaluation [...] or near accidents due to drowsy drivin [place] Sleepiness Scale 01/03/2020 08/11/2023 Score 0 0 [...] Had 2 sleep studies - [place] OTHER RELEVANT LABS AND STUDIES: PAST MEDICAL [...] of Date: (more content not included)... Normal [facility] Ferritin SerPl-mCncon 2022 Ferritin [Mass/Vol] 25.6 ng/mL Normal 14.7-205.1 [facility] Comment on above: Order Comment: Speci men Type: BLOOD SPECIMENOrdering Facility: [facility] Address: [address] [place] [address] [place] [address] Performed By: #### 2 276-4 ####[facility] LABCLIA [id number] [facility] [place] [address] [place] Iron and Iron binding capaci ty panelon 08-19-2023 Iron [Mass/Vol] 27 ug/dL Low 41-186 [facility] Comment on above: Order Comment: Speci men Type: BLOOD SPECIMENOrdering Facility: [facility] Address: [address] [place] [address] Performed By: #### 5 0190-8 ####[facility] LABIA [id number] [place] [id number] [place] Iron binding capacity [Mass/Vol] 353 ug/dL Normal 232-386 [facility] Comment on above: Order Comment: Speci men Type: BLOOD SPECIMENOrdering Facility: [facility] Address: [address] [place] [address] Performed By: #### 5 0190-8 ####[facility] LABIA [id number] [place] [id number] [place] Iron/TIBC [Molar ratio] 7.6 % Low 15.0-57.0 [facility] Comment on above: Order Comment: Speci men Type: BLOOD SPECIMENOrdering Facility: [facility] Address: [address] [place] [address] Performed By: #### 5 0190-8 ####[facility] LABIA [id number] [place] [id number] [place] CNOVon 07-23-2023 CNOV Office Visit (NEMSMITUL ) ----- SMOOTH MARTINEZ ([id number]) 1985 F Date Time Provider Department 07/23/23 11:15 AM TOR HERNANDEZ During your visit today, we recorded the following information about you: Pulse Blood pressure Weight 69/minute 94/62 56.7 kg Tor Hernandez APRN.CNP 07/23/2023 5:00 PM [facility] FOLLOWUP/ESTABLISHED PATIENT VISIT PRINCIPAL NEUROLOGIC DIAGNOSIS: Multiple Sclerosis DISEASE SUMMARY Date of onset: 03/2007 Date of diagnosis of MS: 03/2007 Disease course at onset: Relapsing-Remitting Current disease course: Progressive without relapses Previous disease therapies: - Betaseron 5202-7851 - Copaxone 5829-4854 - Tysabri 2009-Summer 2019 (stopped due to planned ) - Copaxone 9222-7555 (during ) Current disease therapy: Ocrevus since 02/28/21, most recent 04/21/23 Most recent MRI brain: 01/02/23 (stable) Most recent MRI cervical spine: 01/02/23 (stable) Most recent MRI thoracic spine: 07/23/2022 CSF: NA JCV: 02/14/2021 0.28, stratify negative Brief Disease History: - 2006 lower extremity numbness evolving over 3 weeks following occipital relase - 3528-7178 recurrent OS ON - 8405-8439 several relapses including L numbness, weakness, constipation, urinary urgency - 2019 R weakness and numbness needing a wheelchair, hospitalized at [facility] (off Tysabri x3 months due [...] effects. 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 Leans on [...] in August Neuro-QoL Functions (higher=better functioning) Flowsheet [facility] Office Visit from 07/23/2023 in [facility] Office Visit from 01/17/2023 in [facility] Appointment from 01/15/2023 in [facility] Upper Extremity Domain T Score 28.29 31.35 30 Lower Extremity Domain T Score 36.94 36.94 39 Cognitive Function Domain T Score 30.7 28.53 38 Positive Affect Well Being T Score -- -- -- Ability To Participate In Social Roles T Score 39.9 39.9 43 Satisfaction With Social Roles T Score 39.66 39.66 45 Neuro-QoL Symptoms (higher=worse symptoms) Flowsheet [facility] Office Visit from 07/23/2023 in [facility] Office Visit from 01/17/2023 in [facility] Appointment from 01/15/2023 in [facility] Sleep Domain T Score 69.2 68.89 [...] Complication of anesthesia, Coronary artery disease, Diabetes ([facility]), Diabetes, gestational, Gonorrhea, Herpes simplex virus (HSV) infection, History of pre-eclampsia in prior , currently , HIV infection ([facility]), (more content not included)... Normal [facility] CNPNon 07-18-2023 [facility] ([facility]) ----- SMOOTH MARTINEZ ([id number]) 1985 F Date Time Provider Department 07/18/[address] [facility] During your visit today, we [...] [D50.0] Order(s):CBC + DIFF [SQCBCDIF] Order #: [id number] FUTURE IRON + TIBC [SQIRON] Order #: [id number] FUTURE FERRITIN BLD [SQFERR] Order #: [id number] FUTURE Prescriptions as of 07/21/2023 - ketoconazole [...] (FLONASE) 50 mcg/actuation nasal spray Use 1 [place] in each nostril once daily. - MAGNESIUM [...] Status:Closed by SIXTO REBOLLEDO on 07/21/23 Normal [facility] CBC W Auto Differential pane l (Bld)on 07-17-2023 Basophils (Bld) [#/Vol] 0.06 10*3/uL Normal <0.11 [facility] Comment on above: Order Comment: Speci men Type: BLOOD SPECIMENOrdering Facility: [facility] Address: [address] [place] [address] Performed By: #### 5 7021-8 ####[facility] LABCLIA [id number] [place] Basophils/100 WBC (Bld) 1.2 % Normal [facility] Comment on above: Order Comment: Speci men Type: BLOOD SPECIMENOrdering Facility: [facility] Address: [address] Performed By: #### 5 7021-8 ####[facility] LABCLIA [id number] [place] [address] [place] Differential cell count method Nom (Bld) Auto Normal [facility] Comment on above: Order Comment: Speci men Type: BLOOD SPECIMENOrdering Facility: [facility] Address: [address] [place], [place] [address] Performed By: #### 5 7021-8 ####[facility] LABCLIA [id number] [place] [address] [place] Eosinophils (Bld) [#/Vol] 0.09 10*3/uL Normal <0.46 [facility] Comment on above: Order Comment: Speci men Type: BLOOD SPECIMENOrdering Facility: [facility] Address: [address] [place], [place] [address] Performed By: #### 5 7021-8 ####[facility] LABCLIA [id number] [address] [place] Eosinophils/100 WBC (Bld) 1.8 % Normal [facility] Comment on above: Order Comment: Speci men Type: BLOOD SPECIMENOrdering Facility: [facility] Address: [address] Performed By: #### 5 7021-8 ####[facility] LABCLIA [id number] [place] [address] [place] Erythrocyte distribution width (RBC) [Ratio] 25.8 % High 11.5-15.0 [facility] Comment on above: Order Comment: Speci men Type: BLOOD SPECIMENOrdering Facility: [facility] Address: [address] [place], [place] [address] Performed By: #### 5 7021-8 ####[facility] LABCLIA [id number] [place] [address] [place] Hematocrit (Bld) [Volume fraction] 34.2 % Low 36.0-46.0 [facility] Comment on above: Order Comment: Speci men Type: BLOOD SPECIMENOrdering Facility: [facility] Address: [address] Performed By: #### 5 7021-8 ####[facility] LABIA [id number] [place] [address] [place] Hemoglobin (Bld) [Mass/Vol] 9.6 g/dL Low 11.5-15.5 [facility] Comment on above: Order Comment: Speci men Type: BLOOD SPECIMENOrdering Facility: [facility] Address: [address] Performed By: #### 5 7021-8 ####[facility] LABIA [id number] [place] [address] [place] Immature granulocytes (Bld) [#/Vol] 10*3/uL Normal <0.10 [facility] Comment on above: Order Comment: Speci men Type: BLOOD SPECIMENOrdering Facility: [facility] Address: [address] Performed By: #### 5 7021-8 ####[facility] LABIA [id number] [address] [place] Immature granulocytes/100 WBC (Bld) 0.4 % Normal [facility] Comment on above: Order Comment: Speci men Type: BLOOD SPECIMENOrdering Facility: [facility] Address: [address] Performed By: #### 5 7021-8 ####[facility] LABIA [id number] [place] [address] [place] Lymphocytes (Bld) [#/Vol] 1.52 10*3/uL Normal 1.00-4.00 [facility] Comment on above: Order Comment: Speci men Type: BLOOD SPECIMENOrdering Facility: [facility] Address: [address] [place] [address] Performed By: #### 5 7021-8 ####[facility] LABCLIA [id number] [address] STATES OF [facility] Lymphocytes/100 WBC (Bld) 31.2 % Normal [facility] Comment on above: Order Comment: Speci men Type: BLOOD SPECIMENOrdering Facility: [facility] Address: [address] [place] [address] Performed By: #### 5 7021-8 ####[facility] LABIA [id number] [address] [place] MCH (RBC) [Entitic mass] 19.4 pg Low 26.0-34.0 [facility] Comment on above: Order Comment: Speci men Type: BLOOD SPECIMENOrdering Facility: [facility] Address: [address] [place], [place] [id number] Performed By: #### 5 7021-8 ####[facility] LABIA [id number] [place] [address] [place] MCHC (RBC) [Mass/Vol] 28.1 g/dL Low 30.5-36.0 [facility] Comment on above: Order Comment: Speci men Type: BLOOD SPECIMENOrdering Facility: [facility] Address: [address] [place], [place] [id number] Performed By: #### 5 7021-8 ####[facility] LABCLIA [id number] [place] [address] [place] MCV (RBC) [Entitic vol] 69.2 fL Low 80.0-100.0 [facility] Comment on above: Order Comment: Speci men Type: BLOOD SPECIMENOrdering Facility: [facility] Address: [address] [place] [address] Performed By: #### 5 7021-8 ####[facility] LABCLIA [id number] [place] [address] [place] Monocytes (Bld) [#/Vol] 0.65 10*3/uL Normal <0.87 [facility] Comment on above: Order Comment: Speci men Type: BLOOD SPECIMENOrdering Facility: [facility] Address: [address] [place] [address] Performed By: #### 5 7021-8 ####[facility] LABCLIA [id number] [place] [address] [place] Monocytes/100 WBC (Bld) 13.3 % Normal [facility] Comment on above: Order Comment: Speci men Type: BLOOD SPECIMENOrdering Facility: [facility] Address: [address] Performed By: #### 5 7021-8 ####[facility] LABCLIA [id number] [place] [address] [place] Neutrophils (Bld) [#/Vol] 2.53 10*3/uL Normal 1.45-7.50 [facility] Comment on above: Order Comment: Speci men Type: BLOOD SPECIMENOrdering Facility: [facility] Address: [address] Performed By: #### 5 7021-8 ####[facility] LABCLIA [id number] [place] [address] [place] Neutrophils/100 WBC (Bld) 52.1 % Normal [facility] Comment on above: Order Comment: Speci men Type: BLOOD SPECIMENOrdering Facility: [facility] Address: [address] Performed By: #### 5 7021-8 ####[facility] LABCLIA [id number] [place] [address] [place] Nucleated RBC (Bld) [#/Vol] 10*3/uL Normal <0.01 [facility] Comment on above: Order Comment: Speci men Type: BLOOD SPECIMENOrdering Facility: [facility] Address: [address] [place] [address] Performed By: #### 5 7021-8 ####[facility] LABIA [id number] [place] [address] [place] Nucleated RBC/100 WBC (Bld) [Ratio] 0.0 /100 WBC Normal [facility] Comment on above: Order Comment: Speci men Type: BLOOD SPECIMENOrdering Facility: [facility] Address: [address] [place] [address] Performed By: #### 5 7021-8 ####[facility] LABIA [id number] [place] [address] [place] Platelet mean volume (Bld) [Entitic vol] Normal [facility] Comment on above: Order Comment: Speci men Type: BLOOD SPECIMENOrdering Facility: [facility] Address: [address] [place] [address] Result Comment: Unab le to Report. Performed By: #### 5 7021-8 ####[facility] LABIA [id number] [place] [address] [place] Platelets (Bld) [#/Vol] 226 10*3/uL Normal 150-400 [facility] Comment on above: Order Comment: Speci men Type: BLOOD SPECIMENOrdering Facility: [facility] Address: [address] [place] [address] Result Comment: Resu lts checked and verified.No clot detected. Performed By: #### 5 7021-8 ####[facility] LABIA [id number] [place] [address] [place] RBC (Bld) [#/Vol] 4.94 10*6/uL Normal 3.90-5.20 [facility] Comment on above: Order Comment: Speci men Type: BLOOD SPECIMENOrdering Facility: [facility] Address: [place] [id number] Performed By: #### 5 7021-8 ####[facility] LABCLIA [id number] [place] [address] [place] WBC (Bld) [#/Vol] 4.87 10*3/uL Normal 3.70-11.00 [facility] Comment on above: Order Comment: Speci men Type: BLOOD SPECIMENOrdering Facility: [facility] Address: [place] [address] Performed By: #### 5 7021-8 ####[facility] LABCLIA [id number] [address] [place] CNOVon 07-17-2023 CNOV Office Visit ([facility] ) ----- SMOOTH MARTINEZ ([id number]) 1985 F Date Time Provider Department 07/17/23 11:[address] [facility] During your visit today, we [...] her significant other. She went to [place] for a few months to live with her parents. She canceled or no showed her appointments with [facility] and with her therapist. Patient said [...] No C (more content not included)... Normal [facility] Comprehensive metabolic 2000 panelon 07-17-2023 Albumin [Mass/Vol] 4.6 g/dL Normal 3.9-4.9 [facility] Comment on above: Order Comment: Speci men Type: BLOOD SPECIMENOrdering Facility: [facility] Address: [address] [place] [address] Performed By: #### 2 4323-8, 54484-8, 2275-4, 6-3 ####[facility] LABCLIA [id number] [place] [address] [place] ALP [Catalytic activity/Vol] 49 U/L Normal 34-123 [facility] Comment on above: Order Comment: Speci men Type: BLOOD SPECIMENOrdering Facility: [facility] Address: [address] [place] [address] Performed By: #### 2 4323-8, 49200-5, 2275-4, 6-3 ####[facility] LABIA [id number] [place] [address] [place] ALT [Catalytic activity/Vol] 10 U/L Normal 7-38 [facility] Comment on above: Order Comment: Speci men Type: BLOOD SPECIMENOrdering Facility: [facility] Address: [address] [place] [address] Performed By: #### 2 4323-8, 90021-7, 2275-4, 6-3 ####[facility] LABIA [id number] [place] [address] [place] Anion gap [Moles/Vol] 9 mmol/L Normal 9-18 [facility] Comment on above: Order Comment: Speci men Type: BLOOD SPECIMENOrdering Facility: [facility] Address: [address] [place] [address] Performed By: #### 2 4323-8, 77188-4, 2275-4, 6-3 ####[facility] LABIA [id number] [place] [address] [place] AST [Catalytic activity/Vol] 17 U/L Normal 13-35 [facility] Comment on above: Order Comment: Speci men Type: BLOOD SPECIMENOrdering Facility: [facility] Address: [address] [place] [address] Performed By: #### 2 4323-8, 45863-7, 2275-4, 6-3 ####[facility] LABCLIA [id number] [place] [id number] [place] Bilirubin [Mass/Vol] 0.5 mg/dL Normal 0.2-1.[address] [facility] Comment on above: Order Comment: Speci men Type: BLOOD SPECIMENOrdering Facility: [facility] Address: [address] [place] [address] Performed By: #### 2 4323-8, 66640-5, 2275-4, 6-3 ####[facility] LABCLIA [id number] [place] [address] [place] Calcium [Mass/Vol] 9.4 mg/dL Normal 8.5-10.2 [facility] Comment on above: Order Comment: Speci men Type: BLOOD SPECIMENOrdering Facility: [facility] Address: [address] [place], [place] [id number] Performed By: #### 2 4323-8, 87871-5, 2275-4, 6-3 ####[facility] LABCLIA [id number] [place] [address] [place] Chloride [Moles/Vol] 106 mmol/L High 97-[address] [facility] Comment on above: Order Comment: Speci men Type: BLOOD SPECIMENOrdering Facility: [facility] Address: [address] [place] [address] Performed By: #### 2 4323-8, 36890-3, 2275-4, 6-3 ####[facility] LABCLIA [id number] [place] [id number] [place] CO2 [Moles/Vol] 24 mmol/L Normal 22-30 [facility] Comment on above: Order Comment: Speci men Type: BLOOD SPECIMENOrdering Facility: [facility] Address: [address] [place], [place] [address] Performed By: #### 2 4323-8, 46804-0, 6-4, 6-3 ####[facility] LABIA [id number] [address] [place] Creatinine [Mass/Vol] 0.94 mg/dL Normal 0.58-0.96 [facility] Comment on above: Order Comment: Rylee chauhan Type: BLOOD SPECIMENOrdering Facility: [facility] Address: [address] [place] [address] Performed By: #### 2 4323-8, 89629-7, 6-4, 6-3 ####[facility] [id number] [address] [place] Creatinine and Glomerular filtration rate.predicted panel (S/P/Bld) 80 mL/min/1.73m??? Normal >=60 [facility] Comment on above: Order Comment: Rylee chauhan Type: BLOOD SPECIMENOrdering Facility: [facility] Address: [address] [place] [address] Result Comment: Priscila mated Glomerular Filtration Rate [...] actual GFR. Performed By: #### 2 4323-8, 60964-6, 2275-4, 3015-3 ####[facility] LABIA [id number] [place] [address] [place] Glucose [Mass/Vol] 80 mg/dL Normal 74-99 [facility] Comment on above: Order Comment: Rylee chauhan Type: BLOOD SPECIMENOrdering Facility: [facility] Address: [address] [place] [address] Result Comment: The [place] Diabetes [employer] (ADA) provides guidance for cutoff [...] Standards of Medical Care in Diabetes 2016, [place] [employer]. Diabetes Care. 2016.39(Suppl 1). Performed By: #### 2 4323-8, 50806-4, 6-4, 3016-3 ####[facility] LABIA [id number] [place] [address] [place] Potassium [Moles/Vol] 4.4 mmol/L Normal 3.7-5.1 [facility] Comment on above: Order Comment: Speci men Type: BLOOD SPECIMENOrdering Facility: [facility] Address: [address] [place] [address] Performed By: #### 2 4323-8, 56354-8, 6-4, 3016-3 ####[facility] [id number] [place] [address] [place] Protein [Mass/Vol] 7.7 g/dL Normal 6.3-8.0 [facility] Comment on above: Order Comment: Rylee chauhan Type: BLOOD SPECIMENOrdering Facility: [facility] Address: [address] [place] [address] Performed By: #### 2 4323-8, 46612-7, 6-4, 3016-3 ####[facility] LABIA [id number] [place] [address] [place] [place] Sodium [Moles/Vol] 139 mmol/L Normal 136-144 [facility] Comment on above: Order Comment: Speci men Type: BLOOD SPECIMENOrdering Facility: [facility] Address: [address] [address] Performed By: #### 2 4323-8, 70217-7, 6-4, 3016-3 ####[facility] LABCLIA [id number] [place] [id number] [place] Urea nitrogen [Mass/Vol] 13 mg/dL Normal 7-21 [facility] Comment on above: Order Comment: Speci men Type: BLOOD SPECIMENOrdering Facility: [facility] Address: [address] [place], [place] [id number] Performed By: #### 2 4323-8, 80217-4, 6-4, 3016-3 ####[facility] LABCLIA [id number] [place] [address] [place] Ferritin SerPl-ncon 2022 Ferritin [Mass/Vol] 15.8 ng/mL Normal 14.7-205.1 [facility] Comment on above: Order Comment: Speci men Type: BLOOD SPECIMENOrdering Facility: [facility] Address: [address] [place], [place] [id number] Performed By: #### 2 4323-8, 03266-1, 6-4, 6-3 ####[facility] LABCLIA [id number] [place] [address] [place] Iron and Iron binding capaci ty panelon 07-17-2023 Iron [Mass/Vol] 321 ug/dL High 41-186 [facility] Comment on above: Order Comment: Speci men Type: BLOOD SPECIMENOrdering Facility: [facility] Address: [address] [place], [place] [address] Performed By: #### 2 4323-8, 50828-1, 6-4, 3016-3 ####[facility] LABCLIA [id number] [place] [address] [place] Iron binding capacity [Mass/Vol] 400 ug/dL High 232-386 [facility] Comment on above: Order Comment: Speci men Type: BLOOD SPECIMENOrdering Facility: [facility] Address: [place] [address] Performed By: #### 2 4323-8, 52353-2, 6-4, 6-3 ####[facility] LABCLIA [id number] [address] [address] [place] Iron/TIBC [Molar ratio] 80.3 % High 15.0-57.0 [facility] Comment on above: Order Comment: Speci men Type: BLOOD SPECIMENOrdering Facility: [facility] Address: [place] Performed By: #### 2 4323-8, 11826-2, 2275-4, 6-3 ####[facility] LABIA [id number] [address] [place] TSH SerPl-aCncon 07-17-2023 TSH Qn 1.410 m[IU]/L Normal 0.270-4.200 [facility] Comment on above: Order Comment: Speci men Type: BLOOD SPECIMENOrdering Facility: [facility] Address: [address] [place] [address] Result Comment: If t he patient is , TSH reference range varies by gestational period: First Trimester (weeks 9-12): 0.180-2.990 mIU/L Second Trimester: 0.110-3.980 mIU/L Third Trimester: 0.480-4.710 mIU/L Rich Patrick et al. A Practical Approach for the Verifications and Determination of Site- and Trimester-Specific Reference Intervals for Thyroid Function tests in . Thyroid, 2019:29:3:412-420. Vivek E, et al. 2017 Guidelines of the [place] Thyroid [employer] for the Diagnosis and Management of Thyroid Disease during and the . Thyroid, 2017:27:3:315-389. Performed By: #### 2 4323-8, 66189-4, 6-4, 6-3 ####[facility] LABCLIA [id number] [place] [id number] [place] Trichmonas Vaginalis Screen (EIA)on 01-24-2023 Trichomonas Vaginalis Screen (EIA) Negative Normal [facility] Comment on above: Performed By: #### E TRIC #### [facility] [address] [place] [address] Wet Prep-Medical Purposes On berry 01-24-2023 Wet Prep Clue Cellls 1+ Abnormal [facility] Comment on above: Performed By: #### W ETPR #### [facility] [address] [place] [address] Wet Prep Trichomonas See EIA Normal [facility] Comment on above: Performed By: #### W ETPR #### [facility] [address] [place] [address] Wet Prep Yeast None Seen Normal [facility] Comment on above: Performed By: #### W ETPR #### [facility] [address] [facility] [address] CBC W Auto Differential pane l (Bld)on 01-17-2023 Basophils (Bld) [#/Vol] 0.07 10*3/uL <0.11 k/uL [facility] Basophils/100 WBC (Bld) 1.0 % [facility] Differential cell count method Nom (Bld) Auto [facility] Eosinophils (Bld) [#/Vol] 0.07 10*3/uL <0.46 k/uL [facility] Eosinophils/100 WBC (Bld) 1.0 % [facility] Erythrocyte distribution width (RBC) [Ratio] 15.5 % High 11.5 - 15.0 % [facility] Hematocrit (Bld) [Volume fraction] 31.5 % Low 36.0 - 46.0 % [facility] Hemoglobin (Bld) [Mass/Vol] 9.4 g/dL Low 11.5 - 15.5 g/dL [facility] Immature granulocytes (Bld) [#/Vol] <0.10 k/uL [facility] Immature granulocytes/100 WBC (Bld) 0.3 % [facility] Lymphocytes (Bld) [#/Vol] 2.30 10*3/uL 1.00 - 4.00 k/uL [facility] Lymphocytes/100 WBC (Bld) 32.7 % [facility] MCH (RBC) [Entitic mass] 22.2 pg Low 26.0 - 34.0 pg [facility] MCHC (RBC) [Mass/Vol] 29.8 g/dL Low 30.5 - 36.0 g/dL [facility] MCV (RBC) [Entitic vol] 74.3 fL Low 80.0 - 100.0 fL [facility] Monocytes (Bld) [#/Vol] 0.51 10*3/uL <0.87 k/uL [facility] Monocytes/100 WBC (Bld) 7.2 % [facility] Neutrophils (Bld) [#/Vol] 4.07 10*3/uL 1.45 - 7.50 k/uL [facility] Neutrophils/100 WBC (Bld) 57.8 % [facility] Nucleated RBC (Bld) [#/Vol] <0.01 k/uL [facility] Nucleated RBC/100 WBC (Bld) [Ratio] 0.0 /100 WBC [facility] Platelet mean volume (Bld) [Entitic vol] 13.6 fL High 9.0 - 12.7 fL [facility] Platelets (Bld) [#/Vol] 304 10*3/uL 150 - 400 k/uL [facility] RBC (Bld) [#/Vol] 4.24 10*6/uL 3.90 - 5.2 0 m/uL [facility] WBC (Bld) [#/Vol] 7.04 10*3/uL 3.70 - 11. 00 k/uL [facility] Comprehensive metabolic 2000 panelon 01-17-2023 Albumin [Mass/Vol] 4.5 g/dL 3.9 - 4.9 g/dL [facility] ALP [Catalytic activity/Vol] 62 U/L 34 - 123 U/L [facility] ALT [Catalytic activity/Vol] 11 U/L 7 - 38 U/L [facility] Anion gap [Moles/Vol] 9 mmol/L 9 - 18 mmol/L [facility] AST [Catalytic activity/Vol] 18 U/L 13 - 35 U/L [facility] Bilirubin [Mass/Vol] 0.3 mg/dL 0.2 - 1 .3 mg/dL [facility] Calcium [Mass/Vol] 9.8 mg/dL 8.5 - 10. 2 mg/dL [facility] Chloride [Moles/Vol] 104 mmol/L 97 - 10 5 mmol/L [facility] CO2 [Moles/Vol] 26 mmol/L 22 - 30 mmol/L [facility] Creatinine [Mass/Vol] 0.79 mg/dL 0.58 - 0.96 mg/dL [facility] Estimated Glomerular Filtration Rate 99 mL/min/1.73m >=60 mL/min/1.73m [facility] Glucose [Mass/Vol] 69 mg/dL Low 74 - 99 mg/dL [facility] Potassium [Moles/Vol] 4.2 mmol/L 3.7 - 5.1 mmol/L [facility] Protein [Mass/Vol] 7.9 g/dL 6.3 - 8.0 g/dL [facility] Sodium [Moles/Vol] 139 mmol/L 136 - 144 mmol/L [facility] Urea nitrogen [Mass/Vol] 11 mg/dL 7 - 21 mg/dL [facility] C.trachomatis N.gonorrhoeae DNAon 12-10-2022 C. trachomatis DNA DEIRDRE+probe Ql (Unsp spec) Negative Normal Negative [facility] N. gonorrhoeae DNA DEIRDRE+probe Ql (Unsp spec) Negative Normal Negative [facility] Trichmonas Vaginalis Screen (EIA)on 12-06-2022 Trichomonas Vaginalis Screen (EIA) Negative Normal [facility] Comment on above: Performed By: #### E TRIC #### [facility] [address] [place] [address] Wet Prep-Medical Purposes On berry 12-06-2022 Wet Prep Clue Cellls 1+ Abnormal [facility] Comment on above: Performed By: #### W ETPR #### [facility] [address] [place] [address] Wet Prep Trichomonas See EIA Normal [facility] Comment on above: Performed By: #### W ETPR #### [facility] [address] [place] [address] Wet Prep Yeast None Seen Normal [facility] Comment on above: Performed By: #### W ETPR #### [facility] [address] [place] [address] Albumin [Mass/volume] in Ser um or PlasmaOrdered By: Vishal Agarwal on 10-27-2022 Albumin [Mass/Vol] 4.1 g/dL 3.2-5.5 [facility] Basophils Auto (Bld) [#/Vol] Ordered By: Vishal Agarwal on 10-27-2022 Basophils (Bld) [#/Vol] 0.0 10*3/uL 0.0-0.2 [facility] Basophils/100 WBC Auto (Bld) Ordered By: Vishal Agarwal on 10-27-2022 Basophils/100 WBC (Bld) 0.4 % . [facility] COVID CepheidOrdered By: Brook Agarwal on 10-27-2022 SARS-CoV-2 (COVID-19) Ab IA Ql Positive Negative [facility] Comment on above: This is a duplicate [employer] Xpert Xpress CoV-2/Flu/RSV Plus RNA by RT-PCR result to be used for statistical tracking purpose only. SARS-CoV-2 (COVID-19) RNA DEIRDRE+probe Ql (Unsp spec) [facility] Creatinine and Glomerular fi ltration rate.predicted panel (S/P/Bld)Ordered By: Vishal Agarwal on 10-27-2022 Creatinine [Mass/Vol] 0.96 mg/dL 0.44-1.03 [facility] Eosinophils Auto (Bld) [#/Vo l]Ordered By: Vishal Agarwal on 10-27-2022 Eosinophils (Bld) [#/Vol] 0.0 10*3/uL 0.0-0.45 [facility] Eosinophils/100 WBC Auto (Bl d)Ordered By: Vishal Agarwal on 10-27-2022 Eosinophils/100 WBC (Bld) 0.0 % . [facility] Erythrocyte distribution wid th Auto (RBC) [Ratio]Ordered By: Vishal Agarwal on 10-27-2022 Erythrocyte distribution width (RBC) [Ratio] 17.4 % 11.9-15.3 [facility] Estimated glomerular filtrat ion rate (GFR) non- AmericanOrdered By: Vishal Agarwal on 10-27-2022 GFR/1.73 sq M.predicted among non-blacks MDRD (S/P/Bld) [Vol rate/Area] > 60 mL/Min [facility] Globulin Calc (S) [Mass/Vol] Ordered By: Vishal Agarwal on 10-27-2022 Globulin (S) [Mass/Vol] 3.5 g/dL [facility] Hematocrit Auto (Bld) [Volum e fraction]Ordered By: Vishal Agarwal on 10-27-2022 Hematocrit (Bld) [Volume fraction] 38.7 % 34.0-46.4 [facility] Hemoglobin [Mass/volume] in BloodOrdered By: Vishal Agarwal on 10-27-2022 Hemoglobin (Bld) [Mass/Vol] 12.1 g/dL 11.8-15.4 [facility] Leukocytes [#/volume] correc che for nucleated erythrocytes in Blood by Automated counOrdered By: Vishal Agarwal on 10-27-2022 WBC corrected for nucl RBC Auto (Bld) [#/Vol] 4.5 10*3/uL 3.8-11.6 [facility] Lymphocytes Auto (Bld) [#/Vo l]Ordered By: Vishal Agarwal on 10-27-2022 Lymphocytes (Bld) [#/Vol] 0.5 10*3/uL 1.00-4.8 [facility] Lymphocytes/100 WBC Auto (Bl d)Ordered By: Vishal Agarwal on 10-27-2022 Lymphocytes/100 WBC (Bld) 10.8 % . [facility] MCH Auto (RBC) [Entitic mass ]Ordered By: Vishal Agarwal on 10-27-2022 MCH (RBC) [Entitic mass] 23.7 pg 24.7-34.3 [facility] MCHC Auto (RBC) [Mass/Vol]Or dered By: Vishal Agarwal on 10-27-2022 MCHC (RBC) [Mass/Vol] 31.2 g/dL 32.0-35.0 [facility] MCV Auto (RBC) [Entitic vol] Ordered By: Vishal Agarwal on 10-27-2022 MCV (RBC) [Entitic vol] 76.0 fL 80-100 [facility] Monocyte distribution width [Entitic volume] in Blood by AutomatedOrdered By: Vishal Agarwal on 10-27-2022 Monocyte distribution width Auto (Bld) [Entitic vol] 24.86 % 0.00-20.00 [facility] Comment on above: For adults in ED, MD W > 20.0 may be associated with a higher risk of sepsis during the first 12 hrs of hospital admission Monocytes Auto (Bld) [#/Vol] Ordered By: Vishal Agarwal on 10-27-2022 Monocytes (Bld) [#/Vol] 0.8 10*3/uL 0.0-0.8 [facility] Monocytes/100 WBC Auto (Bld) Ordered By: Vishal Agarwal on 10-27-2022 Monocytes/100 WBC (Bld) 16.8 % . [facility] Neutrophils Auto (Bld) [#/Vo l]Ordered By: Vishal Agarwal on 10-27-2022 Neutrophils (Bld) [#/Vol] 3.2 10*3/uL 1.8-7.7 [facility] Neutrophils/100 WBC Auto (Bl d)Ordered By: Vishal Agarwal on 10-27-2022 Neutrophils/100 WBC (Bld) 72.0 % . [facility] No Panel InformationOrdered By: Vishal Agarwal on 10-27-2022 Estimated GFR () > 60 mL/Min [facility] Comment on above: GFR estimated refere nce range: According to KDOQI guidelines, <60 ml/min/1.73m2 is sufficient to diagnose a patient with chronic kidney disease. Pharmacy Creatinine Clearance (Chem 75.11 [facility] Nucleated erythrocytes [Pres ence] in Blood by Automated countOrdered By: Vishal Agarwal on 10-27-2022 Nucleated RBC Auto Ql (Bld) 0.1 /100{WBC} 0-0.5 [facility] Platelet mean volume Auto (B ld) [Entitic vol]Ordered By: Vishal Agarwal on 10-27-2022 Platelet mean volume (Bld) [Entitic vol] 11.0 fL 6.3-10.7 [facility] Platelets Auto (Bld) [#/Vol] Ordered By: Vishal Agarwal on 10-27-2022 Platelets (Bld) [#/Vol] 148 10*3/uL 150-450 [facility] Protein [Mass/volume] in Ser um or PlasmaOrdered By: Vishal Agarwal on 10-27-2022 Protein [Mass/Vol] 7.6 g/dL 6.1-7.9 [facility] RBC Auto (Bld) [#/Vol]Ordere d By: Vishal Agarwal on 10-27-2022 RBC (Bld) [#/Vol] 5.10 10*6/uL 3.60-5.00 [facility] Serum or plasma alanine gannon otransferase measurement without P-5'-P (enzymatic activiOrdered By: Vishal Agarwal on 10-27-2022 ALT No additional P-5'-P [Catalytic activity/Vol] 18 U/L 10-60 [facility] Serum or plasma albumin/glob ulin mass ratioOrdered By: Vishal Agarwal on 10-27-2022 Albumin/Globulin [Mass ratio] 1.2 {ratio} [facility] Serum or plasma alkaline bull sphatase measurement (enzymatic activity/volume)Ordered By: Vishal Agarwal on 10-27-2022 ALP [Catalytic activity/Vol] 43 U/L 32-92 [facility] Serum or plasma anion gap de terminationOrdered By: Vishal Agarwal on 10-27-2022 Anion gap [Moles/Vol] 13.5 mmol/L 6.0-15.0 [facility] Serum or plasma aspartate am inotransferase measurement (enzymatic activity/volume)Ordered By: Vishal Agarwal on 10-27-2022 AST [Catalytic activity/Vol] 24 U/L 10-42 [facility] Serum or plasma calcium scotty urement (mass/volume)Ordered By: Vishal Agarwal on 10-27-2022 Calcium [Mass/Vol] 9.2 mg/dL 8.2-10.2 [facility] Serum or plasma chloride suzie surement (moles/volume)Ordered By: Vishal Agarwal on 10-27-2022 Chloride [Moles/Vol] 101 mmol/L 95-114 [facility] Serum or plasma glucose scotty urement (mass/volume)Ordered By: Vishal Agarwal on 10-27-2022 Glucose [Mass/Vol] 102 mg/dL 70-100 [facility] Comment on above: ADA recommended refe rence rangeRandom Glucose Reference Range is dependent on time and content of last meal. Glucose of more than 200 mg/dL in a nonstressed, ambulatory subject supports the diagnosis of Diabetes Mellitus. Serum or plasma potassium me asurement (moles/volume)Ordered By: Vishal Agarwal on 10-27-2022 Potassium [Moles/Vol] 3.7 mmol/L 3.5-5.1 [facility] Serum or plasma sodium measu rement (moles/volume)Ordered By: Vishal Agarwal on 10-27-2022 Sodium [Moles/Vol] 134 mmol/L 136-146 [facility] Serum or plasma total biliru bin measurement (mass/volume)Ordered By: Vishal Agarwal on 10-27-2022 Bilirubin [Mass/Vol] 0.8 mg/dL 0.3-1.2 [facility] Serum or plasma total carbon dioxide measurement (moles/volume)Ordered By: Vishal Agarwal on 10-27-2022 CO2 [Moles/Vol] 23.2 mmol/L 22.0-30.0 [facility] Serum or plasma urea nitroge n measurement (mass/volume)Ordered By: Vishal Agarwal on 10-27-2022 Urea nitrogen [Mass/Vol] 10 mg/dL 9-23 [facility] WBC Auto (Bld) [#/Vol]Ordere d By: Vishal Agarwal on 10-27-2022 WBC (Bld) [#/Vol] 4.5 10*3/uL 3.8-11.6 [facility] HBV surface Ab IA Ql (S)on 11-27-2021 HBV surface Ag Ql (S) Negative Negative [facility] HEP B CORE AB TOTALon 2021 HBV core Ab Ql (S) Negative Negative [facility] HEP B SURF AB QUALon 022 HBV surface Ab Ql (S) Positive Abnormal Negative [facility] HEP C AB IA W/CONF SCRNon HCV Ab Ql (S) Negative Negative [facility] CBC W Auto Differential pane l (Bld)on 04-25-2022 Abs Immature Gran <0.03 <0.10 k/uL [facility] Basophils (Bld) [#/Vol] 0.03 10*3/uL <0.11 k/uL [facility] Basophils/100 WBC (Bld) 0.6 % [facility] Differential cell count method Nom (Bld) Auto [facility] Eosinophils (Bld) [#/Vol] 0.10 10*3/uL <0.46 k/uL [facility] Eosinophils/100 WBC (Bld) 2.0 % [facility] Erythrocyte distribution width (RBC) [Ratio] 13.9 % 11.5 - 15.0 % [facility] Hematocrit (Bld) [Volume fraction] 38.5 % 36.0 - 46.0 % [facility] Hemoglobin (Bld) [Mass/Vol] 12.0 g/dL 11.5 - 15.5 g/dL [facility] Immature Gran % 0.2 % [facility] Lymphocytes (Bld) [#/Vol] 1.54 10*3/uL 1.00 - 4.00 k/uL [facility] Lymphocytes/100 WBC (Bld) 30.2 % [facility] MCH (RBC) [Entitic mass] 25.4 pg Low 26.0 - 34.0 pg [facility] MCHC (RBC) [Mass/Vol] 31.2 g/dL 30.5 - 36.0 g/dL [facility] MCV (RBC) [Entitic vol] 81.4 fL 80.0 - 100.0 fL [facility] Monocytes (Bld) [#/Vol] 0.66 10*3/uL <0.87 k/uL [facility] Monocytes/100 WBC (Bld) 12.9 % [facility] Neutrophils (Bld) [#/Vol] 2.76 10*3/uL 1.45 - 7.50 k/uL [facility] Neutrophils/100 WBC (Bld) 54.1 % [facility] Nucleated RBC (Bld) [#/Vol] 10*3/uL <0.01 k/uL [facility] Nucleated RBC/100 WBC (Bld) [Ratio] 0.0 /100 WBC [facility] Platelet mean volume (Bld) [Entitic vol] 13.5 fL High 9.0 - 12.7 fL [facility] Platelets (Bld) [#/Vol] 168 10*3/uL 150 - 400 k/uL [facility] RBC (Bld) [#/Vol] 4.73 10*6/uL 3.90 - 5.2 0 m/uL [facility] WBC (Bld) [#/Vol] 5.10 10*3/uL 3.70 - 11. 00 k/uL [facility] URINALYSIS, REFLEX MICROSCOP ICon 04-25-2022 Bilirubin Ql (U) Negative Negative [facility] Clarity (Unsp spec) Clear Clear [facility] Color (U) Light Yellow Yellow [facility] Glucose Test strip (U) [Mass/Vol] Negative Negative [facility] Hemoglobin Ql (U) Negative Negative [facility] Ketones Ql (U) Negative Negative [facility] Leukocyte esterase Test strip Ql (U) Negative Negative [facility] Nitrite Ql (U) Negative Negative [facility] pH (U) 6.0 [pH] 5.0 - 8.0 [facility] Protein (U) [Mass/Vol] Negative Negative [facility] Specific gravity (U) [Rel density] 1.021 1.005 - 1.030 [facility] Urobilinogen Ql (U) Negative Negative [facility] CNPNon 11-13-2021 [facility] Telephone (NERUSSELLFV) ----- SMOOTH MARTINEZ ([id number]) 1985 F Date Time Provider Department 11/13/21 [...] (FLONASE) 50 mcg/actuation nasal spray Use 1 [place] in each nostril once daily. - MAGNESIUM ORAL Take 1 tablet by mouth twice daily. - Iyyyshny-Qu-Hmo-Fe-FA ( VITAMIN) tab Take 1 tablet by [...] Status:Closed by AUDIE GABRIEL on 11/13/21 [facility] Christiano 07-24-2021 [facility] Telephone (NEADFV) ----- SMOOTH MARTINEZ ([id number]) 1985 F Date Time Provider Department 07/24/21 MICHELLE GARCIA During your visit today, we recorded the following information about you: Hanna Page Lopez 07/24/2021 12:34 PM Signed Patient called stating she is scheduled for an Ocrevus infusion on August 15, but will be out of state in [place]. She would like to have the infusion done there at [facility]. Also,she has new insurance as of May and will need to get the Ocrevus approved through her new insurance ([employer]- ). For questions call patient at [phone] Alexandra Alexander Sec 07/24/2021 1:21 PM Signed Patient called back with a phone number of [phone] for [facility]. The phone # her [employer] is [phone]. Audie Gabriel RN 07/24/2021 1:51 PM Signed [...] (FLONASE) 50 mcg/actuation nasal spray Use 1 [place] in each nostril once daily. - MAGNESIUM ORAL Take 1 tablet by mouth twice daily. - Xtgfmumk-Zs-Gjp-Fe-FA ( VITAMIN) tab Take 1 tablet by [...] Status:Closed by AUDIE GABRIEL on 07/24/21 Normal [facility] Telephone Encounteron 2020 [employer] Authentication Interface Message Text Patient was identified by name and date of . Patient given message, patient denied additional questions. ----- Message from Sofy Pandya MD sent at 03/22/2021 12:34 PM EDT ----- Please notify neg HPV with ascus pap, OK to f/u in [address] Sofy Pandya Normal [facility] Telephone Encounteron 2020 [employer] Authentication Interface Message Text ----- Message from Sofy Pandya MD sent at 03/08/2021 2:28 PM EDT ----- Please notify ok Normal [facility] GC/CHLAMYDIA/TRICHOMONAS AMP LIFICATIONon 03-07-2021 GC/CHLAMYDIA/TRICHOMO BERTIN AMPLIFICATION CHLAMYDIA AMPLIFICATION: Negative GC AMPLIFICATION: Negative TRICHOMONAS AMPLIFICATION: Negative Normal Negative [facility] Comment on above: Order Comment: This test is performed using an automated nucleic acid amplification assay ([employer] Performed By: #### G CT #### [facility] [address] [facility] [place], [place] HEPATITIS C ANTIBODYon 03-07 HCV Non-Reactive Normal Nonreactive [facility] Comment on above: Performed By: #### H CV #### [facility] [address] [place] [address], HIV1 HIV2 AGAB SCRNon 2020 HIV AG-AB SCREEN Non-Reactive Normal Non-Reactive [facility] Comment on above: Order Comment: HIV Information: ???[place] Rev. code 3701.243(E): This information has been [...] #### h iv1 hiv2 agab scrn #### [facility] [address] [place] [address], HUMAN PAPILLOMA VIRUSon 02-09 HPV HIGH RISK Negative Normal Negative [facility] Comment on above: Order Comment: This test is performed using an automated nucleic acid amplification assay ([facility], [employer] [place], [place]). This assay detects RNA of HPV types 16,18,31,33,35,39,45,51,52,56,58,59,66 and 68 in cervical specimens. Result Comment: A ne gative result does not exclude the possibility of low levels of infection or sampling error. 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 No LMP recorded. Periods are regular [...] Pap smear of cervix 2007- in [place]. had LEEP. no abn pap since * [...] Intravenous Push route. * Cholecalciferol 1.25 MG (37811 UT) TABS Take 50,000 Units by mouth once weekly. * Kfvzooul-Lve-Pr-FA (Mynatal) CAPS Take by mouth. 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 Normal [facility] [employer] Operator Authentication Interface Message Text Patient at risk [...] bandage applied. Site appears normal. Normal [facility] Filter Paper Leadon 11-24-20 20 Lead <2 Normal <5 [facility] Lead Interpretation Normal [facility] Comment on above: Result Comment: Occu pationally exposed adults lead >40 requires medical followup. This test was developed and its performance characteristics determined by [facility]. It has not been cleared or approved by the U.S. Food and Drug Administration. The FDA has determined that such clearance or approval is not necessary. This test is used for clinical purposes. It should not be regarded as investigational or for research. Type of Puncture Capillary Specimen Normal [facility] Vital Signs Date Time Vital Sign Value Performing Clinician Facility 03-04-2024 13:00-0400 Body height 168.[address] MD Work Phone: [facility] 03-04-2024 13:00-0400 Body mass index (BMI) [Ratio] 19.52 kg/m2 Janice Lane MD Work Phone: [facility] 03-04-2024 13:00-0400 Body temperature 98.1 [degF] Janice Lane MD Work Phone: [facility] 03-04-2024 13:00-0400 Body weight 55.[address] MD Work Phone: [facility] 03-04-2024 13:00-0400 Diastolic blood pressure 66 mm[Hg] Janice Lane MD Work Phone: [facility] 03-04-2024 13:00-0400 Heart rate 95 /min Janice Lane MD Work Phone: [facility] 03-04-2024 13:00-0400 SaO2% (BldA) [Mass fraction] 100 % Janice Lane MD Work Phone: [facility] 03-04-2024 13:00-0400 Systolic blood pressure 101 mm[Hg] Janice Lane MD Work Phone: [facility] 12-25-2023 10:54-0500 Body weight 56.8 kg Tor Hernandez UTILITY HAND.WELDING MACHINE OPERATOR ULTRASONIC Work Phone: [facility] 12-25-2023 10:54-0500 Diastolic blood pressure 67 mm[Hg] Tor Hernandez UTILITY HAND.WELDING MACHINE OPERATOR ULTRASONIC Work Phone: [facility] 12-25-2023 10:54-0500 Heart rate 87 /min Tor Hernandez UTILITY HAND.WELDING MACHINE OPERATOR ULTRASONIC Work Phone: [facility] 12-25-2023 10:54-0500 Systolic blood pressure 95 mm[Hg] Tor Hernandez UTILITY HAND.WELDING MACHINE OPERATOR ULTRASONIC Work Phone: [facility] 12-23-2023 13:34-0500 Body mass index (BMI) [Ratio] 20.13 kg/m2 Gael Howard DO Work Phone: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 ULTRASONIC [address] [place] [address] Return in about 6 months (around 11/2024). [facility] Comment on above: Return in about 6 mo nths (around 11/2024). Start: 07-19-2024 End: 07-19-2024 Patient encounter procedure [facility] Comment on above: 1 year physical refill - glatiramer -- Start: 07-11-2024 Influenza vaccination Influenza Vacc ine (#1) [facility] Start: 07-01-2024 End: 07-01-2024 Patient encounter procedure [facility] Comment on above: Return in about 6 mo nths (around 06/24/2024). Snoring [R06.83] Start: 06-25-2024 End: 06-25-2024 Specialty Pharmacy 06/25/2024 11:00 AM EDT Specialty Pharmacy [facility] [address] [place] [address] Pharmacist, Specialtygroup3 [address] [place] [address] [place] [address] refill - glatiramer -- lvm 06/22 [facility] Comment on above: refill - glatiramer -- lvm 06/22 Start: 06-23-2024 End: 06-23-2024 Patient encounter procedure 06/23/2024 8:00 AM EDT Office Visit Neurology [address] [place] [address] ACTIGRAPHY Neurology Comment on above: ACTIGRAPHY Start: 06-22-2024 End: 06-22-2024 Specialty Pharmacy 06/22/2024 11:00 AM EDT Specialty Pharmacy [facility] [address] [id number] [place] [address] Pharmacist, [facility]ty[facility] [address] [place] [address] [place] [address] refill - glatiramer -- [facility] Comment on above: refill - glatiramer -- Start: 06-08-2024 End: 06-08-2024 ambulatory 06/08/2024 1:00 PM EDT [facility] [address] [facility] [place] [place] [address] Germania Wilkinson MD [address] [place] [address] INSOMNIA Neurology Comment on above: INSOMNIA Start: 06-08-2024 End: 06-08-2024 Patient encounter procedure 06/08/2024 1:00 PM EDT Office Visit Neurology [address] [place] [address] Germania Wilkinson MD [address] [place] [address] INSOMNIA Neurology Comment on above: INSOMNIA Start: 05-25-2024 End: 05-25-2024 Patient encounter procedure 05/25/2024 8:00 AM EDT Office Visit Neurology [address] [place] [id number] ACTIGRAPHY Neurology Comment on above: ACTIGRAPHY Start: 05-24-2024 End: 05-24-2024 Specialty Pharmacy 05/24/2024 11:00 AM EDT Specialty Pharmacy [facility] [address] [place], [place] [id number] Pharmacist, [address]ty[address] [place] [address] refill - glatiramer -- [facility] Comment on above: refill - glatiramer -- Start: 05-19-2024 End: 05-19-2024 Patient encounter procedure 05/19/2024 10:00 AM EDT Office Visit [facility] [address] [place] [address] Clarke Hu DO [address] [place] [address] [facility] Start: 04-30-2024 End: 04-30-2024 Specialty Pharmacy 04/30/2024 11:00 AM EDT Specialty Pharmacy [facility] [address] [place] [address] [id number] [place] [address] Pharmacist, [address]ty[address] [place] [address] refill--glatiramer [facility] Comment on above: refill--glatiramer Start: 04-21-2024 End: 04-21-2024 Patient encounter procedure 04/21/2024 8:00 AM EDT Office Visit Neurology [address] [place] [id number] ACTIGRAPHY Neurology Comment on above: ACTIGRAPHY Start: 03-30-2024 End: 03-30-2024 ambulatory 03/30/2024 1:45 PM EDT [place] [id number] Tor Hernandez, UTILITY HAND.WELDING MACHINE OPERATOR ULTRASONIC [address] [id number] What medicine to take during or off of [facility] Comment on above: What medicine to raúl e during or off of Start: 03-26-2024 End: 03-26-2024 ambulatory 03/26/2024 9:40 AM EDT Infusion Center Hematology/Oncology [address] [place] [address] Kylah, [facility] [address] [place] [address] [place] [address] [facility] Hematology/Oncolog y Comment on above: [facility] Start: 03-22-2024 End: 03-22-2024 ambulatory 03/22/2024 2:30 PM EDT [facility] Neurology [address] [place] [address] Ayan Marie, UTILITY HAND.WELDING MACHINE OPERATOR ULTRASONIC [address] [place] [address] F/U Neurology Comment on above: F/U Start: 03-08-2024 End: 03-08-2024 Patient encounter procedure 03/08/2024 8:00 AM EDT Office Visit Neurology [address] [place] [address] ACTIGRAPHY Neurology Comment on above: ACTIGRAPHY Start: 03-07-2024 Screening for malign ant neoplasm of cervix Cervical Cancer Screening [facility] Start: 03-04-2024 End: 06-03-2024 JOSSELIN BY IFA WITH REFLEX [facility] Comment on above: Expected: 03/04/2024 , Expires: 06/03/2024 Start: 03-04-2024 End: 06-03-2024 C reactive protein [Mass/volume] in Serum or Plasma [facility] Comment on above: Expected: 03/04/2024 , Expires: 06/03/2024 Start: 03-04-2024 End: 06-03-2024 Ferritin [Mass/volume] in Serum or Plasma [facility] Comment on above: Expected: 03/04/2024 , Expires: 06/03/2024 Start: 03-04-2024 End: 06-03-2024 Iron and Iron binding capacity panel - Serum or Plasma [facility] Comment on above: Expected: 03/04/2024 , Expires: 06/03/2024 Start: 03-04-2024 End: 06-03-2024 Rheumatoid factor [Units/volume] in Serum or Plasma [facility] Comment on above: Expected: 03/04/2024 , Expires: 06/03/2024 Start: 03-04-2024 End: 06-03-2024 Urate [Mass/volume] in Serum or Plasma [facility] Comment on above: Expected: 03/04/2024 , Expires: 06/03/2024 Start: 02-24-2024 [facility] Start: 12-11-2023 End: 08-21-2024 Mri brain brain stem w/o w/contrast material MRI BRAIN WO/W IVCON Radiology Routine Multiple sclerosis (HCC) Expected: 12/11/2023 (Approximate), Expires: 08/21/2024 [facility] Work Phone: Comment on above: Expected: 12/11/2023 (Approximate), Expires: 08/21/2024 Start: 11-10-2023 Behavioral Health Screening Behavioral Health Screening [facility] Start: 11-10-2023 Depression Assessment Depression Ass essment [facility] Start: 10-25-2023 End: 01-24-2024 CBC W Auto Differential panel - Blood CBC + DIFF Lab Routine Other drug-induced neutropenia (HCC) Expected: 10/25/2023 (Approximate), Expires: 01/24/2024 [facility] Work Phone: Comment on above: Expected: 10/25/2023 (Approximate), Expires: 01/24/2024 Start: 09-25-2023 End: 12-25-2023 CD19 ABSOLUTE COUNT [facility] Work Phone: Comment on above: Expected: 09/25/2023 , Expires: 12/25/2023 Start: 09-23-2023 End: 12-23-2023 Choriogonadotropin.beta subunit [Units/volume] in Serum or Plasma HCG QUANTITATIVE Lab Routine Multiple sclerosis ([facility]) Expected: 09/23/2023, Expires: 12/23/2023 [facility] Work Phone: Comment on above: Expected: 09/23/2023 , Expires: 12/23/2023 Start: 09-23-2023 End: 12-23-2023 IgG [Mass/volume] in Serum or Plasma IGG Lab Routine Multiple sclerosis ([facility]) Expected: 09/23/2023, Expires: 12/23/2023 [facility] Work Phone: Comment on above: Expected: 09/23/2023 , Expires: 12/23/2023 Start: 09-23-2023 End: 12-23-2023 IgM [Mass/volume] in Serum or Plasma IGM Lab Routine Multiple sclerosis ([facility]) Expected: 09/23/2023, Expires: 12/23/2023 [facility] Work Phone: Comment on above: Expected: 09/23/2023 , Expires: 12/23/2023 Start: 07-11-2023 Covid-19 Vaccine () Covid-19 Vaccine () [facility] Start: 07-11-2023 Influenza vaccination [facility] Start: 02-12-2023 End: 04-14-2023 CBC W Auto Differential panel - Blood [facility] Work Phone: Comment on above: Expected: 02/12/2023 , Expires: 04/14/2023 Start: 02-12-2023 End: 04-14-2023 Ferritin [Mass/volume] in Serum or Plasma [facility] Work Phone: Comment on above: Expected: 02/12/2023 , Expires: 04/14/2023 Start: 02-12-2023 End: 02-26-2023 Influenza virus A and B RNA and SARS-CoV-2 (COVID-19) N gene panel - Respiratory specimen by DEIRDRE with probe detection [facility] Work Phone: Comment on above: Expected: 02/12/2023 , Expires: 02/26/2023 Start: 02-12-2023 End: 04-14-2023 Iron and Iron binding capacity panel - Serum or Plasma [facility] Work Phone: Comment on above: Expected: 02/12/2023 , Expires: 04/14/2023 Start: 02-12-2023 End: 02-13-2024 PELVIC US WHI PELVIC US WHI Anc Imaging Routine Vaginal bleeding Expected: 02/12/2023, Expires: 02/13/2024 [facility] Work Phone: Comment on above: Expected: 02/12/2023 , Expires: 02/13/2024 Start: 02-05-2023 End: 12-07-2023 Mri brain brain stem w/o w/contrast material MRI BRAIN WO/W IVCON Radiology Routine Multiple sclerosis (HCC) Expected: 02/05/2023 (Approximate), Expires: 12/07/2023 [facility] Work Phone: Comment on above: Expected: 02/05/2023 (Approximate), Expires: 12/07/2023 Start: 02-05-2023 End: 12-07-2023 Mri spinal canal cervical w/o & w/contr matrl MRI CERVICAL SPINE WO/W IVCON Radiology Routine Multiple sclerosis (HCC) Expected: 02/05/2023 (Approximate), Expires: 12/07/2023 [facility] Work Phone: Comment on above: Expected: 02/05/2023 (Approximate), Expires: 12/07/2023 Start: 01-17-2023 End: 03-19-2023 25-hydroxyvitamin D3 [Mass/volume] in Serum or Plasma [facility] Work Phone: Comment on above: Expected: 01/17/2023 , Expires: 03/19/2023 Start: 01-17-2023 End: 03-19-2023 Cobalamin (Vitamin B12) [Mass/volume] in Serum or Plasma [facility] Work Phone: Comment on above: Expected: 01/17/2023 , Expires: 03/19/2023 Start: 01-17-2023 End: 03-19-2023 IgG [Mass/volume] in Serum or Plasma [facility] Work Phone: Comment on above: Expected: 01/17/2023 , Expires: 03/19/2023 Start: 01-17-2023 End: 03-19-2023 IgM [Mass/volume] in Serum or Plasma [facility] Work Phone: Comment on above: Expected: 01/17/2023 , Expires: 03/19/2023 Start: 01-17-2023 End: 03-19-2023 Thyrotropin [Units/volume] in Serum or Plasma [facility] Work Phone: Comment on above: Expected: 01/17/2023 , Expires: 03/19/2023 Start: 11-10-2022 [facility]ION [facility]MENT [facility] Start: 10-27-2022 Plain chest X-ray XR chest 1V portab [facility] Start: 10-27-2022 XR Chest Single view [facility] Start: 07-11-2022 Influenza vaccination [facility] Start: 04-25-2022 End: 06-25-2022 Bacteria identified in Urine by Culture [facility] Work Phone: Comment on above: Expected: 04/25/2022 , Expires: 06/25/2022 Start: 04-24-2022 End: 06-24-2022 25-hydroxyvitamin D3 [Mass/volume] in Serum or Plasma VITAMIN D 25 HYDROXY Lab Routine Vitamin D deficiency Expected: 04/24/2022, Expires: 06/24/2022 [facility] Work Phone: Comment on above: Expected: 04/24/2022 , Expires: 06/24/2022 Start: 04-24-2022 End: 06-24-2022 Comprehensive metabolic 2000 panel - Serum or Plasma COMP METABOLIC PANEL Lab Routine Multiple sclerosis ([facility]) Expected: 04/24/2022, Expires: 06/24/2022 [facility] Work Phone: Comment on above: Expected: 04/24/2022 , Expires: 06/24/2022 Start: 04-24-2022 End: 06-24-2022 IgG [Mass/volume] in Serum or Plasma IGG Lab Routine Multiple sclerosis ([facility]) Expected: 04/24/2022, Expires: 06/24/2022 [facility] Work Phone: Comment on above: Expected: 04/24/2022 , Expires: 06/24/2022 Start: 04-24-2022 End: 06-24-2022 IgM [Mass/volume] in Serum or Plasma IGM Lab Routine Multiple sclerosis ([facility]) Expected: 04/24/2022, Expires: 06/24/2022 [facility] Work Phone: Comment on above: Expected: 04/24/2022 , Expires: 06/24/2022 Start: 04-24-2022 End: 06-24-2022 VARICELLA ZOSTER IGG VARICELLA ZOSTER IGG Lab Routine Multiple sclerosis ([facility]) Expected: 04/24/2022, Expires: 06/24/2022 [facility] Work Phone: Comment on above: Expected: 04/24/2022 , Expires: 06/24/2022 Start: 02-08-2022 Adult depression screening assessment DEPRESSION SCREENING [facility] Start: 11-10-2021 DEPRESSION ASSESSMENT DEPRESSION ASS ESSMENT [facility] Start: 01-05-2020 [facility] Work Phone: Start: 2015 HPV TESTING HPV TESTING [facility] Start: 2015 Screening for malign ant neoplasm of cervix HPV Testing [facility] Start: 2003 Anxiety Screening Anxiety Screening [facility] Start: 2003 Depression Screening Depression Scre ening [facility] Start: 1990 COVID-19 VACCINE (#1) COVID-19 VACCI NE (#1) [facility] Start: 1990 COVID-19 VACCINE (1) COVID-19 VACCIN E (1) [facility] Start: 02-01-1986 COVID-19 VACCINE (#1) COVID-19 VACCI NE (#1) [facility] Start: 1985 HEPATITIS B (1 of 3 - 3-dose series) HEPATITIS B (1 of 3 - 3-dose series) [facility] 25-hydroxyvitamin D3 [Mass/volume] in Serum or Plasma VITAMIN D 25 HYDROXY Lab Routine Vitamin D deficiency 04/25/2022 11:12 AM EDT [facility] Work Phone: Bacteria identified in Genital specimen by Aerobe culture [facility] Work Phone: Comprehensive metabo lic 2000 panel - Serum or Plasma COMP METABOLIC PANEL Lab Routine Multiple sclerosis (HCC) 04/25/2022 11:12 AM EDT [facility] Work Phone: End: 04-25-2023 EPIL EEG ROUTINE EPIL EEG ROUTINE NEUROLOGY Routine Multiple sclerosis (HCC) 1 Occurrences starting 04/25/2022 until 04/25/2023 [facility] Work Phone: Comment on above: 1 Occurrences starti ng 04/25/2022 until 04/25/2023 Glucose measurement estimated from glycated hemoglobin [facility] End: 06-08-2025 HOME SLEEP APNEA TEST (HSAT) HOME SLEEP APNEA TEST (HSAT) Procedures Routine Snoring Chronic insomnia Malaise and fatigue At risk for obstructive sleep apnea 1 Occurrences starting 06/08/2024 until 06/08/2025 [facility] Work Phone: Comment on above: 1 Occurrences starti ng 06/08/2024 until 06/08/2025 IgG [Mass/volume] in Serum or Plasma IGG Lab Routine Multiple sclerosis ([facility]) 04/25/2022 11:12 AM EDT [facility] Work Phone: IgM [Mass/volume] in Serum or Plasma IGM Lab Routine Multiple sclerosis ([facility]) 04/25/2022 11:12 AM EDT [facility] Work Phone: End: 01-23-2025 MR Thoracic spine WO and W contrast IV MRI THORACIC SPINE WO/W IVCON Radiology Routine Multiple sclerosis ([facility]) 1 Occurrences starting 12/25/2023 until 01/23/2025 [facility] Work Phone: Comment on above: 1 Occurrences starti ng 12/25/2023 until 01/23/2025 OT PLAN OF CARE CERTIFICATION OT PLAN OF CARE CERTIFICATION Procedures Routine Multiple sclerosis ([facility]) Abnormal antibody titer Neurogenic bladder Lack of coordination Ordered: 05/30/2022 [facility] Work Phone: Comment on above: Ordered: 05/30/2022 Patient Education [facility] Work Phone: Patient referral [facility] Work Phone: PT PLAN OF CARE CERTIFICATION PT PLAN OF CARE CERTIFICATION Procedures Routine Abnormality of gait Multiple sclerosis (HCC) Ordered: 07/22/2022 [facility] Work Phone: Comment on above: Ordered: 07/22/2022 SPEECH PLAN OF CARE CERTIFICATION SPEECH PLAN OF CARE CERTIFICATION Procedures Routine Multiple sclerosis ([facility]) Cognitive communication deficit Ordered: 05/30/2022 [facility] Work Phone: Comment on above: Ordered: 05/30/2022 SPEECH PLAN OF CARE CERTIFICATION SPEECH PLAN OF CARE CERTIFICATION Procedures Routine Cognitive communication deficit Ordered: 07/22/2022 [facility] Work Phone: Comment on above: Ordered: 07/22/2022 VARICELLA ZOSTER IGG VARICELLA Z YARELIS IGG Lab Routine Multiple sclerosis ([facility]) 04/25/2022 11:12 AM EDT [facility] Work Phone: End: 04-03-2025 XR Cervical spine AP and Lateral and oblique XR CERV OTHER 4V AP/LAT/OBL Radiology Routine Neck pain 1 Occurrences starting 03/04/2024 until 04/03/2025 [facility] Work Phone: Comment on above: 1 Occurrences starti ng 03/04/2024 until 04/03/2025 XR Cervical spine AP and Lateral and oblique XR CERV OTHER 4V AP/LAT/OBL Radiology Routine Neck pain 03/04/2024 2:13 PM EDT [facility] End: 04-03-2025 XR Lumbar spine 3 Views XR LUMBAR GENERAL 3V AP/LAT/L5-S1 Radiology Routine Chronic midline low back pain without sciatica 1 Occurrences starting 03/04/2024 until 04/03/2025 [facility] Comment on above: 1 Occurrences starti ng 03/04/2024 until 04/03/2025 XR Lumbar spine 3 Views XR LUMBA R GENERAL 3V AP/LAT/L5-S1 Radiology Routine Chronic midline low back pain without sciatica 03/04/2024 2:12 PM EDT [facility] [id number] [place] [address] Work Phone: [facility] NEGATED: Highlighted row has been ruled out! Planned Goals not documented [id number] [place] [address] Work Phone: Immunizations Immunization Date Immunization Notes Care Provider Jacob bush 11-20-2023 influenza virus vaccine, unspecified formulation [facility] 01-15-2022 tetanus toxoid, redu minor diphtheria toxoid, and acellular pertussis vaccine, adsorbed Michelle Garcia MD Work Phone: [facility] Payers Date Payer Category Payer Self-pay [id number] 2023 Private Health Insurance [id number] 2022 Unknown ANTHEM BLUE CROS S AND BLUE SHIELD ANTHEM MEDIBLUE HMO [id number] 2022-Present [phone] [address] [place] [address] HMO [id number] 2022 Unknown [id number] 2021 Medicare [employer] BY KAYLYNN O SNP [id number] 2021-Present [phone] [address] [place] [address] O [id number] 2021 Medicare [id number] 2020 Private Health Insurance [id number] 2020 Medicaid MEDICAID [facility] MEDICAID [id number] 2020-Present [phone] [address] [place] [address] Medicaid [id number] 2020 Medicaid [id number] 2020 Medicaid [id number] 1985 Unknown [id number] 2.16.840.1.458113.3.579.2.7 32 1985 Unknown [id number] 2.16.840.1.869068.3.579.2.1 259 1985 Unknown [id number] 2.16.840.1.859841.3.579.2.1 259 1985 Unknown [id number] 2.16.840.1.567364.3.579.2.1 259 1985 Unknown [id number] 2.16.840.1.340552.3.579.2.1 259 1985 Unknown [id number] 2.16.840.1.121335.3.579.2.1 259 1985 Unknown [id number] 2.16.840.1.159617.3.579.2.1 259 1985 Unknown [id number] 2.16.840.1.943756.3.579.2.1 259 1985 Unknown [id number] 2.16.840.1.577694.3.579.2.1 259 1985 Unknown [id number] 2.16.840.1.513857.3.579.2.1 259 1985 Unknown [id number] 2.16.840.1.021539.3.579.2.1 259 1985 Unknown [id number] 2.16.840.1.127107.3.579.2.1 259 1985 Unknown [id number] 2.16.840.1.090209.3.579.2.1 259 1985 Unknown [id number] 2.16.840.1.426697.3.579.2.1 259 Medicaid [id number] Medicare [id number] Unknown [id number] 2.16.840.1.456167.3.579.2.5 31 Unknown [id number] 2.16.840.1.226273.3.579.2.5 31 Unknown [id number] 2.16.840.1.635032.3.579.2.5 31 Unknown [id number] 2.16.840.1.914384.3.579.2.5 31 Social History Date Type Detail Facility Tobacco smoking stat us IDIS Unknown if ever smoked [facility] Start: 1985 Sex Assigned At Female [facility] Start: 11-15-2019 End: 07-17-2023 Tobacco smoking status NHIS Never smoked tobacco [facility] Start: 11-15-2019 End: 07-17-2023 Tobacco use and exposure Smokeless tobacco non-user [facility] Start: 01-15-2022 End: 03-04-2024 Alcohol intake Ex-drinker (finding) [facility] Start: 11-15-2019 History SDOH Alcohol Comment occas [facility] Start: 03-16-2022 End: 08-08-2022 Exposure to SARS-CoV-2 (event) Not sure [facility] Start: 04-25-2022 Education 17 [facility] Start: 12-16-2022 History SDOH Alcohol Frequency 1 [facility] Start: 12-16-2022 History SDOH Alcohol Std Drinks 0 [facility] Start: 12-16-2022 History SDOH Social Connections Phone 4 [facility] Start: 12-16-2022 History SDOH Social Connections Membership 2 [facility] Start: 12-16-2022 History SDOH Social Connections Living 7 [facility] Start: 12-16-2022 History SDOH Physica l Activity MPS 3 [facility] Start: 12-16-2022 History SDOH Stress 5 [facility] Start: 12-16-2022 End: 07-17-2023 History of Social function [facility] Start: 12-16-2022 End: 07-17-2023 Social connection and isolation panel [facility] Do you belong to any clubs or organizations such as uatsdin groups, unions, fraternal or athletic groups, or school groups? No [facility] Are you now , , , , never or living with a partner? Never [facility] How often to you hav e a drink containing alcohol? Never [facility] How many standard drinks containing alcohol do you have on a typical day? Patient does not drink [facility] How hard is it for y ou to pay for the very basics like food, housing, medical care, and heating Somewhat hard [facility] Do you feel stress - tense, restless, nervous, or anxious, or unable to sleep at night because your mind is troubled all the time - these days [OSQ] Very much [facility] (I/We) worried wheth er (my/our) food would run out before (I/we) got money to buy more. Often true [facility] Start: 12-23-2020 Gender identity Identifies as female gender (finding) [facility] Start: 12-23-2020 Sexual orientation Heterosexual (brandin ding) [facility] History of tobacco use Passive smoker [facility] Start: 12-11-2023 End: 12-23-2023 Alcohol intake Lifetime non-drinker (finding) [facility] NEGATED: Highlighted row - - YI-Sbdaqzcspw-Ehuyx vahid 2300 Work Phone: Goals Date Patient Goal Desired Activity /State Personal health goal Personal health goal Functional Status Date Assessment Result Facility NEGATED: Highlighted row Functional performance Functional status health issues are not documented Disease XH-Poranzpoan-Qrseh vahid 2300 Work Phone: Mental Status Date Assessment Result Facility NEGATED: Highlighted row Cognitive function [Interpretation] Cognitive status health issues are not documented Disease MQ-Usbbaojaas-Zdapt vahid 2300 Work Phone: Clinical Notes 04-17-2021 to 06-22-2024 Telephone Encounter - Tor Hernandez APRN.WELDING MACHINE OPERATOR [employer] - 06/22/2024 4:13 PM EDTTelephone Encounter - Tor Hernandez APRN.CNP - 06/22/2024 4:13 PM EDTJoelle Virgen - 06/14/2024 2:30 PM EDT Note Date & Type Note Facility 06-22-2024 Note HNO ID: [id number] Author: JERICA NEWBERRY RPh Service: ? Author Type: ? Type: Progress Notes Filed: 06/23/2024 16:02 Note Text: [facility] Refill Assessment Medication(s): [...] laboratory parameters, disease state markers and outcomes. Jerica Newberry [facility] [employer] Assessment Patient confirmed: Yes Med/dose confirmed: Yes Supplies needed: No supplies needed Missed doses: No Estimated days supply on hand: 7 Next cycle/dose due: 06/23/24 Copay amount: 0 Delivery method: FedEx Signature required: Waived on patient request Delivery address: [address] [place] [address] Delivery date: 06/25/24 Questions or concerns for the pharmacist?: No Did you have any side effects believed to be related to this medication, that resulted in hospitalization?: No Current Outpatient Medications on File Prior to Visit Medication Sig glatiramer (COPAXONE) 40 mg/mL injection Inject 40 mg subcutaneously every Friday, Friday, and Friday. OTC NUTRITIONAL SUPPLEMENT Take 1 Each by mouth two times a day. Drink 2 drinks per day. Patient preference to brand and flavor magnesium oxide (MAG-OX) 400 mg (241.3 mg magnesium) tablet Take 1 tablet by mouth daily at bedtime. cholecalciferol (VITAMIN D-3) 5,000 unit tab Take [...] (FLONASE) 50 mcg/actuation nasal spray Use 1 [place] in each nostril once daily. No current facility-administered medications on file prior to visit. [facility] SPECIAL[facility] CLINICAL ASSESSMENT - NEUROLOGY V7: Assessment to use: Refill Assessment of injection issues or necrosis at injection sites: Yes Screening for infection: Yes Drug specific assessments, as appropriate: Yes Current medication list (including drug interaction assessment): Yes Experience of adverse reactions to the medication: Yes Date of influenza vaccination reminder: 04/08/2024 Date of most recent vaccination assessment: 04/08/2024 Treatment Plan Information: Copazone/Glatopa/glatiramer Refrigerated, take out [...] inject where skin looks healthy. Training video ([employer] no longer supplies nurses for training, or injection devices) PFS supplied and training video [email or web address].com/injectio [email or web address]-kz-jfbezb DDI none pertinent Vaccines reviewed Est. Tx Plan Start Date: No information available Estimated Start Date Info: No information available Est. Estimated Treatment Duration: No information available Rian (more content not included)... [facility] 06-22-2024 Telephone encounter Note The following approved medication requests have been transmitted electronically. Requested Prescriptions Signed Prescriptions Disp Refills glatiramer (COPAXONE) 40 mg/mL injection 12 mL 5 Sig: Inject 40 mg subcutaneously every Friday, Friday, and Friday. Authorizing Provider: TOR HERNANDEZ APRN.TREE [facility] 06-22-2024 Miscellaneous Notes The following approved medication requests have been transmitted electronically. Requested Prescriptions Signed Prescriptions Disp Refills glatiramer (COPAXONE) 40 mg/mL injection 12 mL 5 Sig: Inject 40 mg subcutaneously every Friday, Friday, and Friday. Authorizing Provider: TOR HERNANDEZ APRN.WELDING MACHINE OPERATOR [employer] Patient is in need of a new prescription as follows: Requested Prescriptions Pending Prescriptions Disp Refills glatiramer (COPAXONE) 40 mg/mL injection 12 mL 5 Sig: Inject 40 mg subcutaneously every Friday, Friday, and Friday. Last office visit 06-09-24 Please review and advise. Juan Miguel Ervin RPh documented in this encounter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 Restless Leg Syndrome Score 22 (Severe symptoms) 22 (Severe symptoms) 29 (Severe symptoms) 03/19/2024 04/13/2024 05/23/2024 PHQ-9 Score 19 19 19 12 07/11/2023 01/21/2024 04/13/2024 PROMIS Global Health - (T-Scores - the mean of general population = 50. Five points is a clinically meaningful difference.) Physical T-Score 29.6 29.6 29.6 Mental T-Score 36.3 38.8 38.8 PMH, PSH, SH: Reviewed SLEEP RELATED ROS Review of Systems ALLERGIES Allergen Reactions Gluten Other: See Comments, [...] Vomiting More constipated More constipated CURRENT MEDICATIONS: glatiramer (COPAXONE) 40 mg/mL injection Inject 40 mg subcutaneously every Friday, Friday, and Friday. magnesium oxide (MAG-OX) 400 mg (241.3 mg magnesium) tablet Take 1 tablet by mouth daily at bedtime. cholecalciferol (VITAMIN D-3) 5,000 unit tab Take [...] (FLONASE) 50 mcg/actuation nasal spray Use 1 [place] in each nostril once daily. Prior Hypersomnia/Narcolepsy Medications (20 years) No data to display Prior RLS Medications (last 20 years) 01/09/2021 RLS Medications fentanyl citrate/PF, bupivacaine HCl/PF, epinephrine, 0.9 % sodium chloride EPIDURAL, NEEDED, Starting 01/09/21 at 0222, Until Discontinued, Anesthesia Intraprocedure -Discontinued (Disc in Anes) fentanyl citrate/PF, epinephrine, bupivacaine HCl/PF, 0.9 % sodium chloride EPIDURAL, X (ONE-STEP ONLY) CONTINUOUS PRN, Starting 01/09/21 at 0231, Until Discontinued, Anesthesia Intraprocedure -Discontinued (Disc in Anes) Details Hospital medication Prior Insomnia Medications (last 20 years) 03/30/2024 23:59 Insomnia Medications trazodone HCl 50 mg AT BEDTIME PRN ORAL -Discontinued (Therapy comp) Patient not taking as of 03/04/2024 1:06 PM mirtazapine 15 mg AT BEDTIME ORAL melatonin 3 mg DAILY PRN ORAL Details Outpatient prescription Medication marked as long-term Patient not taking PHYSICAL EXAMINATION: General appearance: In no acute distress. Neuro: Awake and alert IMPRESSION: Multiple sclerosis (hcc) Chronic insomnia Restless leg syndrome RLS is better controlled History concerning for ABHI Referred to BS for CBTi PLAN: - Home Sleep Apnea Test (HST) to evaluate for obstructive sleep apnea. - Discussed with the patient the possible diagnosis, causes, and conditions associated with obstructive sleep apnea. - Avoid driving when drowsy. Recommend that if you are dozing off while driving, that you do not drive until your sleepiness is appropriately treated. -Encouraged healthy lifestyle with adequate sleep ( 7-9 hours per night), diet and exercise. - Results are usually available within 7-10 business days. If you do not hear from us within 1-2 weeks after testing, please contact us directly. - Take supplemental iron with vitamin C. Discussed the association of iron deficiency with restless leg syndrome. Recommend to take iron. - Avoid caffeine intake as this can [...] blocking antiemetics (eg. Reglan), centrally acting antihistamines - Follow up visit in 2 weeks after sleep study . Please schedule this appointment now to ensure your preferred time and location. Germania Wilkinson MD documented in this encounter [facility] 05-27-2024 Note HNO ID: [id number] Author: IBAN LAZO, PhD Service: ? Author Type: Psychologist Type: Progress Notes Filed: 05/27/2024 18:02 Note Text: Behavioral Sleep Medicine Follow up Iban Lazo, PhD I have communicated my name and active licensure. The patient's identity and physical location were verified at the time of this visit. Either the patient or their legal phone representative has been informed of the risks and benefits of -- and alternatives to -- treatment through a remote evaluation and consents to proceed with the evaluation remotely. 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 Patient Confirmed Telephone #: [phone] Time: 33 minutes Individual Psychotherapy Session # [...] drowsy/sleepy while driving. Pt noted that her HOMELAND SECURITY PROGRAM SPECIALIST stated she could take Unisom to sleep during - asked pt to wait to take this medication until after she completes actigraphy testing as we want to get a sense of her baseline sleep rhythms. Pt verbalized understanding. Pt reported that sleep quality has been the same. Pt stated that she is working with a therapist at [facility] named Aravind Mazin- she reported that they most recently have talked about helping her to stop shopping and learning how to say no to people. Pt provided verbal consent for this provider to contact Aravind Retana to discuss pt's case to coordinate care and provided his contact phone number: [phone] Discussed the following plan with patient Complete [...] disorder RLS Multiple sclerosis PROGRESS TO DATE: Siene Maker Progress: Condition at intake Short Term Condition: [...] to start Uniso (more content not included)... [facility] 05-25-2024 Note HNO ID: [id number] Author: ?, ?, ? Service: ? Author Type: ? Type: Progress Notes Filed: 06/14/2024 14:32 Note Text: ACTIGRAPHY DEVICE #[id number] Date shipped out 05/25/2024 [employer] MAIL OUT TRACKING NUMBER [id number] [employer] RETURN TRACKING NUMBER [id number], Achasah [facility] 05-24-2024 History of Present illness Narrative [facility] [...] laboratory parameters, disease state markers and outcomes. Hot Mill Roller Assessment Patient confirmed: Yes Med/dose confirmed: Yes Supplies needed: Alcohol swabs Missed doses: No Estimated days supply on hand: 10 Next cycle/dose due: 05/26/24 Copay amount: 0 Delivery method: FedEx Signature required: Waived on patient request Delivery address: [address] [place] [address] Delivery date: 06/01/24 Questions or concerns for [...] (FLONASE) 50 mcg/actuation nasal spray Use 1 [place] in each nostril once daily. No current facility-administered medications on file prior to visit. [facility] Visit Assessment - Neurology: Assessment [...] inject where skin looks healthy. Training video ([employer] no longer supplies nurses for training, or injection devices) PFS supplied and training video [email or web address]-[email or web address] DDI none pertinent Vaccines reviewed Jus Saucedo CPhT Neurology, Cardiology & Infectious Disease [facility] documented in this encounter [facility] 05-24-2024 Note HNO ID: [id number] Author: JUAN MIGUEL ERVIN RPh Service: ? [...] and outcomes. Juan Miguel Ervin, PharmD Pharmacist, [facility] Chief Optometry Service Assessment Patient confirmed: Yes Med/dose confirmed: Yes Supplies needed: Alcohol swabs Missed doses: No Estimated days supply on hand: 10 Next cycle/dose due: 05/26/24 Copay amount: 0 Delivery method: FedEx Signature required: Waived on patient request Delivery address: [address] [place], [place] [id number] Delivery date: 06/01/24 Questions or concerns for [...] (FLONASE) 50 mcg/actuation nasal spray Use 1 [place] in each nostril once daily. No current facility-administered medications on file prior to visit. [facility] Visit Assessment - Neurology: Assessment [...] inject where skin looks healthy. Training video ([employer] no longer supplies nurses for training, or injection devices) PFS supplied and training video [email or web address]-de-[email or web address] DDI none pertinent Vaccines reviewed Refill Assessment: Assessment of injection issues or necrosis at injection sites: Yes Screening for infection: Yes Adverse reactions and mitigation: Yes Drug specific assessments, as appropriate: Yes Additional Assessment: S/Sx of relapse: No S/Sx of progression to secondary progressive disease: No (more content not included)... [facility] 05-10-2024 Note HNO ID: [id number] Author: IBAN LAZO, PhD Service: ? Author Type: Psychologist Type: Progress Notes Filed: 05/10/2024 14:16 Note Text: Appointment canceled. Pt logged on to visit but was located in a public setting and in the state of [place]. Explained that due to psychology licensure laws I cannot meet with patients unless they are physically located within the state of [place]. Pt stated she is returning to [place] on Wednesday 05/16. Next visit scheduled for 05/27. Iban Lazo, PhD, Psychologist ([place] license [id number]) [facility] 04-26-2024 History of Present illness Narrative [facility] [...] laboratory parameters, disease state markers and outcomes. Hot Mill Roller Assessment Patient confirmed: Yes Med/dose confirmed: Yes Supplies needed: No supplies needed Missed doses: Yes Count of missed doses: 1 Reason for missed doses: stated medication misfired Estimated days supply on hand: 4 Next cycle/dose due: 04/26/24 Copay amount: 0 Payment confirmed: Yes Delivery method: FedEx Signature required: Waived on patient request Delivery address: [address] [place] [id number] Delivery date: 04/28/24 Questions or concerns for [...] (FLONASE) 50 mcg/actuation nasal spray Use 1 [place]wood in each nostril once daily. No current facility-administered medications on file prior to visit. [facility] Visit Assessment - Neurology: Assessment [...] inject where skin looks healthy. Training video ([employer] no longer supplies nurses for training, or injection devices) PFS supplied and training video [email or web address] DDI none pertinent Vaccines reviewed Jazmine Mcclure CPhT Cardiology, Neurology & Infectious Disease [facility] documented in this encounter [facility] 04-26-2024 Note HNO ID: [id number] Author: JUAN MIGUEL ERVIN RPh Service: ? [...] and outcomes. Juan Miguel Ervin, PharmD Pharmacist, [facility] Chief Optometry Service Assessment Patient confirmed: Yes Med/dose confirmed: Yes Supplies needed: No supplies needed Missed doses: Yes Count of missed doses: 1 Reason for missed doses: stated medication misfired Estimated days supply on hand: 4 Next cycle/dose due: 04/26/24 Copay amount: 0 Payment confirmed: Yes Delivery method: FedEx Signature required: Waived on patient request Delivery address: [facility] [address] [place] [id number] Delivery date: 04/28/24 Questions or concerns for [...] (FLONASE) 50 mcg/actuation nasal spray Use 1 [place] in each nostril once daily. No current facility-administered medications on file prior to visit. [facility] Visit Assessment - Neurology: Assessment [...] inject where skin looks healthy. Training video ([employer] no longer supplies nurses for training, or injection devices) PFS supplied and training video [email or web address]-qc-ffmfvg DDI none pertinent Vaccines reviewed Refill Assessment: Assessment of injection issues or necrosis at injection sites: Yes Screening for infection: Yes Adverse reactions and mitigation: Yes Drug specific assessments, as appropriate: Yes Additional Assessment: Current MPR%: 100 S/Sx of relapse: No S/Sx of progression to secondary progressive disease: (more content not included)... [facility] 04-20-2024 Note HNO ID: [id number] Author: IBAN LAZO, PhD Service: ? Author Type: Psychologist Type: Progress Notes Filed: 04/21/2024 12:27 Note Text: Behavioral Sleep Medicine Follow up Iban Lazo, PhD I have communicated my name and active licensure. The patient's identity and physical location were verified at the time of this visit. Either the patient or their legal phone representative has been informed of the risks and benefits of -- and alternatives to -- treatment through a remote evaluation and consents to proceed with the evaluation remotely. Contact Method: Zoom Patient Confirmed Address: [address] [place] [address] Patient Confirmed Telephone #: [phone] Time: 45 minutes Individual Psychotherapy Session # [...] the CBTInitiate class on 03/[address] Hogan on 03/30 - pt reported that it [...] disorder RLS Multiple sclerosis PROGRESS TO DATE: Halfway Progress: Condition at intake Short Term Condition: [...] team members. 6. (more content not included)... [facility] 03-31-2024 History of Present illness Narrative [facility] received prescription(s) for Glatiramer from Dr. Tor Hernandez office. Benefits investigation was conducted, indicating we will need to call to verify if a prior authorization is required/needed by pt's plan with Sherri . Thang Santana CPhT (Dee) [facility] Neurology/Cardiology/Infections Disease [facility] P: F: PA for pt's Glatiramer has been approved by [employer]. Reuben 03/31/24 - 11/09/24. Madison Puente [facility] Chief Optometry Service, Specialty Pharmacy [facility] [id number] [place] [address] Email: [email or web address] documented in this encounter [facility] 03-31-2024 Note HNO ID: [id number] Author: JERICA NEWBERRY [facility] Service: ? Author Type: Pharmacist Type: Progress Notes Filed: 04/08/2024 11:37 Note Text: [facility] received prescription(s) for Glatiramer from Dr. Warren's office. Benefits investigation was conducted, indicating that a prior authorization is required. 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 Will obtain renal ultrasound at her convenience to assess for any upper tract changes On most recent creatinine was normal. Will obtain renal ultrasound at her convenience to assess for any upper tract changes Chronic insomnia 01/04/2020 Iesha Pearson MD No Multiple sclerosis (HCC) 11/15/2019 Michelle Garcia MD No Optic neuritis 08/21/2019 Nikole Moe UTILITY HAND.WELDING MACHINE OPERATOR ULTRASONIC No Overview Signed 04/17/2021 7:30 AM by Nikole Moe APRN.WELDING MACHINE OPERATOR ULTRASONIC Start Date: 03/2009 Start Date: 03/2009 Bilateral hearing loss 07/14/2018 Nikole Moe, UTILITY HAND.WELDING MACHINE OPERATOR ULTRASONIC No Ovarian cyst, complex 04/14/2018 Nikole Moe, UTILITY HAND.WELDING MACHINE OPERATOR ULTRASONIC No Ovarian torsion 04/14/2018 Nikole Moe, UTILITY HAND.WELDING MACHINE OPERATOR ULTRASONIC No Restless leg syndrome 07/28/2017 Nikole Moe, UTILITY HAND.WELDING MACHINE OPERATOR ULTRASONIC No Cognitive communication deficit 07/22/2022 Amina Vazquez, [facility] 07/17/[address] MD Costochondritis, acute 04/17/2021 Nikole Moe, UTILITY HAND.WELDING MACHINE OPERATOR ULTRASONIC 04/20/2021 Nikole Moe, UTILITY HAND.WELDING MACHINE OPERATOR ULTRASONIC Edema of lower extremity 04/17/2021 Nikole Moe, UTILITY HAND.WELDING MACHINE OPERATOR ULTRASONIC 04/20/2021 Nikole Moe, UTILITY HAND.WELDING MACHINE OPERATOR ULTRASONIC Hypoglycemia 03/07/2021 Nikole Moe, UTILITY HAND.WELDING MACHINE OPERATOR ULTRASONIC 07/17/[address] MD NO SHOW 01/22/2021 Lala Forman, DO 04/17/2021 Nikole Moe, UTILITY HAND.WELDING MACHINE OPERATOR ULTRASONIC Encounter for induction of labor 01/08/2021 Subha Ordoñez RN 01/11/2021 Jo-Ann Aragon MD Encounter for supervision of normal first in third trimester 01/02/2021 Lala Forman, DO 01/11/2021 Jo-Ann Aragon MD Low maternal weight gain, third trimester 01/02/2021 Lala Forman, DO 01/11/2021 Jo-Ann Aragon MD GBS (group B [...] trimester 2020 Lala Forman, DO 01/11/2021 Jo-Ann Argaon MD Constipation 10/06/2019 Nikole Moe, UTILITY HAND.WELDING MACHINE OPERATOR ULTRASONIC 07/17/[address] MD Gait difficulty 10/06/2019 Nikole Moe, UTILITY HAND.WELDING MACHINE OPERATOR ULTRASONIC 07/17/[address] MD Cognitive complaints 03/03/2019 Nikole Moe, UTILITY HAND.WELDING MACHINE OPERATOR ULTRASONIC 07/17/[address] MD Syncope and collapse 12/04/2018 Nikole Moe, UTILITY HAND.WELDING MACHINE OPERATOR ULTRASONIC 07/17/[address] MD Obstructive sleep apnea 07/28/2017 Payal, (more content not included)... [facility] 03-31-2024 Note HNO ID: [id number] Author: ?, ?, ? Service: ? Author Type: ? Type: Progress Notes Filed: 03/31/2024 10:57 Note Text: [facility] received prescription(s) for Glatiramer from Dr. Tor Hernandez office. Benefits investigation was conducted, indicating we will need to call to verify if a prior authorization is required/needed by pt's plan with [employer] . Thang Santana CPhT (Dee) Lead Tech Neurology/Cardiology/Infections Disease [facility] P: F: [facility] 03-31-2024 Note HNO ID: [id number] Author: ?, ?, ? Service: ? Author Type: ? Type: Progress Notes Filed: 03/31/2024 12:24 Note Text: PA for pt's Glatiramer has been approved by [employer]. Reuben 03/31/24 - 11/09/24. Madison Puente [facility] Chief Optometry Service, Specialty Pharmacy [facility] [address] / [id number] [place] [address] Email: [email or web address] [facility] 03-30-2024 Note HNO ID: [id number] Author: ROXY HOGAN PSYD Service: ? Author Type: Resident Type: Progress Notes Filed: 04/01/2024 10:51 Note Text: [facility] BE[facility]IORAL SLEEP MEDICINE CBT-[facility] Virtual Group March 30, 2024 Time: 3-4:05pm [id number]: Virtual Group Psychotherapy Providers: Teo Elliott have communicated my name and active licensure. The patient's identity and physical location were verified at the time of this visit. Either the patient or their legal phone representative has been informed of the risks [...] transcribed by Iris Yoon, PhD BSM Fellow [facility] 03-30-2024 Note HNO ID: [id number] Author: CLARICE ZEPEDA HUC Service: ? Author Type: Health [place] Winder Type: Progress Notes Filed: 03/30/2024 14:55 Note Text: Faxed Glatiramer Acetate form with ins info [facility] 03-30-2024 History of Present illness Narrative Faxed Glatiramer Acetate form with ins info documented in this encounter [facility] 03-30-2024 Instructions Tor Hernandez APRN.CNP - 03/30/2024 2:27 PM EDT PLAN: - Stop Ocrevus for now - Will hold on further MRI monitoring for now - Will submit for Copaxone during - Stop Ampyra and tizanidine - Continue vitamin D and magnesium - Follow up in 8-9 months virtually documented in this encounter [facility] 03-30-2024 History of Present illness Narrative Images from the original note were not included. [facility] FOLLOWUP/ESTABLISHED VIRTUAL PATIENT VISIT PRINCIPAL NEUROLOGIC DIAGNOSIS: Multiple Sclerosis DISEASE SUMMARY Date of onset: 03/2007 Date of diagnosis of MS: 03/2007 Disease course at onset: Relapsing-Remitting Current disease course: Progressive without relapses Previous disease therapies: - Betaseron 9505-3359 - Copaxone - Tysabri 2009-Summer 2019 (stopped [...] over 3 weeks following occipital relase - 4825-8154 recurrent OS ON - 8570-6941 several relapses including L numbness, weakness, constipation, urinary urgency - 2019 R weakness and numbness needing a wheelchair, hospitalized at [facility] (off Tysabri x3 months due to planning ). Also had OD vision loss at this time. At this time also notes substantial mold exposure due to it being all over her apt (has since moved). CHIEF COMPLAINT: Follow up, discussion on recent + Usual treating team: Christina Today's visit is being completed virtually over [employer]. I have communicated my name and active licensure. The patient's identity and physical location were verified at the time of this visit. 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 to find a driver trainer as she knows she needs to improve her strength Last took Copaxone and felt good Would like to continue Copaxone again this - will need her home mortgage disclosure act specialist to administer injections Does plan to breastfeed after this Recalls her MS symptoms were stable until ~ 3 months pp Neuro-QoL Functions (higher=better functioning) Flowsheet Row Social Work from 01/21/2024 in [facility] Office Visit from 07/23/2023 in [facility] Office Visit from 01/17/2023 in [facility] Upper Extremity Domain T Score 28 [...] Flowsheet Row Social Work from 01/21/2024 in [facility] Office Visit from 07/23/2023 in [facility] Office Visit from 01/17/2023 in [facility] Sleep Domain T Score 66 69.2 [...] Edema of lower extremity (04/17/2021), Multiple sclerosis ([facility]), Seizure ([facility]), and Thyroid disease. She has no past medical history of Asthma, Blood dyscrasia, Breast disorder, Chlamydia, Chronic kidney disease, Complication of anesthesia, Coronary artery disease, Diabetes ([facility]), Diabetes, gestational, Gonorrhea, Herpes simplex virus (HSV) infection, History of pre-eclampsia in prior , currently , HIV infection ([facility]), Hypertension, Infertility, female, Liver disease, Malignant hyperthermia due to anesthesia, Mental disorder, Placental abruption, depression, hemorrhage, Rh incompatibility, Sickle cell anemia ([facility]), Syphilis, or Systemic lupus erythematosus ([facility]). has a current medication list which includes the following prescription(s): ketoconazole, ferrous sulfate, ketoconazole, melatonin, fluticasone, magnesium oxide, polyethylene glycol 3350, cholecalciferol, mirtazapine, norethindrone (contraceptive), vitamin b complex with c-[id number]-cu-zn renal vitamins, multiple vitamin-minerals, dalfampridine er, norethindrone (contraceptive), tizanidine, ocrelizumab, and vitamin b complex. EXAM: LMP 12/21/2023 (Exact Date) Multiple Sclerosis Performance Test Flowsheet Row Office Visit from 07/23/2023 in [facility] Office Visit from 01/17/2023 in [facility] Processing Speed Total Number Correct 52 [...] D supplementation Follow-up: In 9 months at [place] or Virtual Visit with [facility] APC I spent a total of 40 minutes on the date of the service which included preparing to see the patient, [id number] patient care, completing clinical documentation, obtaining and/or reviewing separately obtained history, performing a medically appropriate examination, counseling and educating the patient/family/caregiver, and ordering medications, tests, or procedures. Tor Hernandez APRN.TREE [facility] for Multiple Sclerosis documented in this encounter [facility] 03-30-2024 Note HNO ID: [id number] Author: TOR HERNANDEZ APRN.TREE Service: ? Author Type: Nurse Practitioner Type: Progress Notes Filed: 03/30/2024 14:27 Note Text: [facility] FOLLOWUP/ESTABLISHED VIRTUAL PATIENT VISIT PRINCIPAL NEUROLOGIC DIAGNOSIS: Multiple Sclerosis DISEASE SUMMARY Date of onset: 03/2007 Date of diagnosis of MS: 03/2007 Disease course at onset: Relapsing-Remitting Current disease course: Progressive without relapses Previous disease therapies: - Betaseron 8255-5236 - Copaxone - Tysabri 2009-Summer 2019 (stopped due to planned ) - Copaxone 4513-6822 (during ) Current disease therapy: Ocrevus (since 02/28/21, most recent 09/25/23) Most recent MRI brain: 01/02/23 (stable) Most recent MRI cervical spine: 01/02/23 (stable) Most recent MRI thoracic spine: 07/23/2022 CSF: NA JCV: 02/14/2021 0.28, stratify negative Brief Disease History: - 2006 lower extremity numbness evolving over 3 weeks following occipital relase - 3321-7595 recurrent OS ON - 5680-7082 several relapses including L numbness, weakness, constipation, urinary urgency - 2019 R weakness and numbness needing a wheelchair, hospitalized at [facility] (off Tysabri x3 months due to planning ). Also had OD vision loss at this time. At this time also notes substantial mold exposure due to it being all over her apt (has since moved). CHIEF COMPLAINT: Follow up, discussion on recent + Usual treating team: Christina Today's visit is being completed virtually over [employer]. I have communicated my name and active licensure. The patient's identity and physical location were verified at the time of this visit. 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 to find a driver trainer as she knows she needs to improve her strength Last took Copaxone and felt good Would like to continue Copaxone again this - will need her home mortgage disclosure act specialist to administer injections Does plan to breastfeed after this Recalls her MS symptoms were stable until ~ 3 months pp Neuro-QoL Functions (higher=better functioning) Flowsheet Row Social Work from 01/21/2024 in [facility] Office Visit from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 Date Janice Lane MD [address] [facility] [place] [address] PCP - General Family Medicine 12/09/19 Spiral Binder Relationship Specialty Start Date End Date Janice Lane MD [address] [facility] [place] [address] PCP - General Family Medicine 12/09/19 Spiral Binder Relationship Specialty Start Date End Date Janice Lane MD [address] [facility] [place] [address] PCP - General Family Medicine 12/09/19 Spiral Binder Relationship Specialty Start Date End Date Janice Lane MD [address] [facility] [place] [address] PCP - General Family Medicine 12/09/19 Spiral Binder Relationship Specialty Start Date End Date Janice Lane MD [address] [facility] [place] [address] PCP - General Family Medicine 12/09/19 Spiral Binder Relationship Specialty Start Date End Date Janice Lane MD [address] [facility] [place] [address] PCP - General Family Medicine 12/09/19 Spiral Binder Relationship Specialty Start Date End Date Janice Lane MD [address] [facility] [place] [address] PCP - General Family Medicine 12/09/19 Spiral Binder Relationship Specialty Start Date End Date Janice Lane MD [address] [facility] [place] [address] PCP - General Family Medicine 12/09/19 Spiral Binder Relationship Specialty Start Date End Date Janice Lane MD [address] [facility] [place] [address] PCP - General Family Medicine 12/09/19 Spiral Binder Relationship Specialty Start Date End Date Janice Lane MD [address] [facility] [place] [address] PCP - General Family Medicine 12/09/19 Spiral Binder Relationship Specialty Start Date End Date Janice Lane MD [address] [facility] [place] [address] PCP - General Family Medicine 12/09/19 Spiral Binder Relationship Specialty Start Date End Date Janice Lane MD [address] [facility] [place] [address] PCP - General Family Medicine 12/09/19 Spiral Binder Relationship Specialty Start Date End Date Janice Lane MD [address] [facility] [place] [address] PCP - General Family Medicine 12/09/19 Spiral Binder Relationship Specialty Start Date End Date Janice Lane MD [address] [facility] [place] [address] PCP - General Family Medicine 12/09/19 Spiral Binder Relationship Specialty Start Date End Date Janice Lane MD [address] [facility] [place] [address] PCP - General Family Medicine 12/09/19 Spiral Binder Relationship Specialty [place] [address] [place] [address] PCP - General Pediatrics 10/26/23 Spiral Binder Relationship Specialty [place] [address] [place] [address] PCP - General Pediatrics 10/26/23 Spiral Binder Relationship Specialty Start Date End Date Janice [address] MD [address] [place] [address] PCP - General Family Medicine 12/09/19 Spiral Binder Relationship Specialty Start Date End Date Janice Lane MD [address] [facility] [place] [address] PCP - General Family Medicine 12/09/19 Spiral Binder Relationship Specialty Start Date End Date Janice Lane MD [address] [facility] [place] [address] PCP - General Family Medicine 12/09/19 Spiral Binder Relationship Specialty Start Date End Date Janice Lane MD [address] [facility] [place] [address] PCP - General Family Medicine 12/09/19 Spiral Binder Relationship Specialty Start Date End Date Janice Lane MD [address] [facility] [place] [address] PCP - General Family Medicine 12/09/19 Spiral Binder Relationship Specialty Start Date End Date Janice Lane MD [address] [facility] [place] [address] PCP - General Family Medicine 12/09/19 Spiral Binder Relationship Specialty Start Date End Date Janice Lane MD [address] [facility] [place] [address] PCP - General Family Medicine 12/09/19 Team Status: Inactive Member Role Status Dates Janice Lane MD Primary Care Provider Active Start: February 24, 2024 End: February 24, 2024 Clarke Hu Attending Provider Active Start: 2023 End: February 24, 2024 Spiral Binder Relationship Specialty Start Date End Date Janice Lane MD [address] [facility] [place] [address] PCP - General Family Medicine 12/09/19 Team Status: Inactive Member Role Status Dates Janice Lane MD Primary Care Provider Active Start: March 17, 2024 End: March 17, 2024 Clarke Hu Attending Provider Active Start: Negro campbell 2023 End: March 17, 2024 Spiral Binder Relationship Specialty Start Date End Date Janice Lane MD [address] [facility] [place] [address] PCP - General Family Medicine 12/09/19 Spiral Binder Relationship Specialty Start Date End Date Janice Lane MD [address] [facility] [place] [address] PCP - General Family Medicine 12/09/19 Spiral Binder Relationship Specialty Start Date End Date Janice Lane MD [address] [facility] [place] [address] PCP - General Family Medicine 12/09/19 Spiral Binder Relationship Specialty Start Date End Date Janice Lane MD [address] [place] [address] PCP - General Family Medicine 12/09/19 [facility] Spiral Binder Relationship Specialty Start Date End Date Janice Lane MD [address] [place] [address] PCP - General Family Medicine 12/09/19 [facility] Spiral Binder Relationship Specialty Start Date End Date Janice Lane MD [address] [place] [address] PCP - General Family Medicine 12/09/19 [facility] Spiral Binder Relationship Specialty Start Date End Date Janice Lane MD [address] [place] [address] PCP - General Family Medicine 12/09/19 [facility] Goals (unrecognized section and content) Goals may [...] BE BASED ON THE PRIMARY CLINICAL RECORDS. [facility], [facility]. provides no warranty or guarantee of the accuracy or completeness of information in this document.
[2024-07-17 12:39] LABS: Basophils Percent Auto 0.3 % (0.2-2.0); Eosinophils Absolute Auto 0.1 10^3/uL (0.0-0.7); Eosinophils Percent Auto 0.9 % (0.9-7.0); Hematocrit 39.2 % (36.0-48.0); Hemoglobin 12.6 g/dL (12.0-16.0); Immature Granulocytes Abs Auto 0.05 10^3/uL (0.00-0.03); Immature Granulocytes Pct Auto 0.5 % (0.0-0.5); Lymphocytes Absolute Auto 1.3 10^3/uL (1.2-3.8); Lymphocytes Percent Auto 13.9 % (20.5-60.0); Mean Corpuscular HGB Conc 32.1 g/dL (29.9-35.2); Mean Corpuscular Volume 83.9 fL (81.0-99.0); Mean Platelet Volume 12.4 fL (9.5-13.5); Monocytes Absolute Auto 0.5 10^3/uL (0.3-0.8); Monocytes Percent Auto 5.7 % (1.7-12.0); Neutrophils Absolute Auto 7.2 10^3/uL (1.4-6.5); Neutrophils Percent Auto 78.7 % (43.0-75.0); Platelet Count 173 10^3/uL (150-450); Red Blood Count 4.67 10^6/uL (4.20-5.40); Red Cell Distribution Width 14.6 % (11.0-15.0); White Blood Count 9.1 10^3/uL (4.0-11.0)
[2024-07-17 12:41] LABS: Glucose 1 Hour 90 mg/dL (<130)
== END 2024-07-17 11:02 | disposition home or self-care (01) ==
LOC: LAB 11:02
PROVIDERS: Visit Provider Obstetrics & Gynecology
DX: Z13.1 Encounter for screening for diabetes mellitus (principal)
CPT/HCPCS: 36415; 82950; 85025

== ENCOUNTER 2024-07-27 09:28 | Outpatient (OUT) | payer MEDICARE, MEDICAID, SELFPAY ==
--- NOTE | 2024-07-27 09:31 | US_ITS ---
[address] [address] Patient Name: CAROL ANN ROMAN MRN: [id number] date: 1985 Sex: F Assigned Patient Location: [facility] Current Patient Location: [facility] Accession/Order Number: [id number] Exam Date: 07/27/2024 09:32 Report Date: 07/27/2024 12:50 At the request of: JOHN VERDIN Procedure: US OB cervical length EXAMINATION: US OB cervical length HISTORY: SHORT CERVIX, HISTORY OF LEEP COMPARISON: 06/08/2024 FINDINGS: presentation: Cephalic Cervix: 2.1 cm, closed US/US OB cervical length IMPRESSION: Short cervix measuring 2.1 cm in length Electronically authenticated by: JANICE ERWIN Date: 07/27/2024 12:50
== END 2024-07-27 09:29 | disposition home or self-care (01) ==
LOC: NOMS 09:30
PROVIDERS: Visit Provider Obstetrics & Gynecology
DX: Z36.86 Encounter for antenatal screening for cervical length (principal)
CPT/HCPCS: 76817

== ENCOUNTER 2024-08-10 09:06 | Outpatient (OUT) | payer MEDICARE, MEDICAID, SELFPAY ==
--- NOTE | 2024-08-10 09:10 | US_ITS ---
[place] [id number] Patient Name: CAROL ANN ROMAN MRN: [id number] date: 1985 Sex: F Assigned Patient Location: [facility] Current Patient Location: [facility] Accession/Order Number: [id number] Exam Date: 08/10/2024 09:08 Report Date: 08/10/2024 09:53 At the request of: JOHN VERDIN Procedure: US OB cervical length EXAMINATION: US OB cervical length HISTORY: HISTORY OF LEEP COMPARISON: 07/27/2024 FINDINGS: position: Cephalic Cervix: 2.4 cm, closed US/US OB cervical length IMPRESSION: Short closed cervix measuring 2.4 cm in length Electronically authenticated by: JANICE ERWIN Date: 08/10/2024 09:53
== END 2024-08-10 09:07 | disposition home or self-care (01) ==
LOC: NOMS 09:06
PROVIDERS: Visit Provider Obstetrics & Gynecology
DX: O26.873 Cervical shortening, third trimester (principal); O34.43 Maternal care for other abnormalities of cervix, third trimester; Z98.890 Other specified postprocedural states; Z3A.28 28 weeks gestation of pregnancy
CPT/HCPCS: 76817

== ENCOUNTER 2024-08-24 10:29 | Outpatient (OUT) | payer MEDICARE, MEDICAID, SELFPAY ==
--- NOTE | 2024-08-24 10:32 | US_ITS ---
[place] [id number] Patient Name: CAROL ANN ROMAN MRN: [id number] date: 1985 Sex: F Assigned Patient Location: [facility] Current Patient Location: [facility] Accession/Order Number: [id number] Exam Date: 08/24/2024 10:32 Report Date: 08/24/2024 12:51 At the request of: JOHN VERDIN Procedure: US OB cervical length EXAMINATION: US OB cervical length HISTORY: SHORT CERVIX COMPARISON: 08/10/2024 FINDINGS: Presentation: Cephalic Cervix: 2 cm in length, closed US/US OB cervical length IMPRESSION: Short cervix measuring 2 cm in length, decreased from the prior exam Electronically authenticated by: JANICE ERWIN Date: 08/24/2024 12:51
--- OUTSIDE RECORDS SUMMARY | 2024-08-24 10:48 | XMS_ITS | CCD ---
Author Organization [facility] Care Team Providers Care Cardroom Worker Name Role Phone NON, STAFF Primary [...] Primary Care Provider Clarke Hu Attending Provider Clarke Hu Attending Unavailable Janice Lane Primary Care Unavailable Mayte, Clarke Admitting Unavailable Mayte, Clarke Attending Unavailable Mayte, Clarke Admitting Unavailable Janice Lane Primary Care Unavailable Mayte, Clarke Attending Unavailable Mayte, Clarke Admitting Unavailable Janice Lane Primary Care Unavailable Mayte, Clarke Attending Unavailable Mayte, Clarke Admitting Unavailable Janice Lane Primary Care Unavailable Ada RPh, Marcin Unavailable Unavailable JAHAIRA BYERS Attending Unavailable MARVIN HOWARD Attending Unavailable MARVIN HOWARD Attending Unavailable MARVIN HOWARD Attending Unavailable KELECHI TATUM Attending Unavailable MAYTE, CLARKE Attending Unavailable MAYTE, CLARKE Attending Unavailable MAYTE, CLARKE Attending Unavailable JAHAIRA BYERS Attending Unavailable MAYTE, CLARKE Attending Unavailable NESHA ZELAYA Attending Unavailable MAYTE, CLARKE Attending Unavailable MAYTE, CLARKE Attending Unavailable MARVIN HOWARD Attending Unavailable MAYTE, CLARKE Attending Unavailable KELECHI TATUM Attending Unavailable JANICE LANE Primary Care Unavailable JANICE LANE Primary Care Unavailable NIDIA GARCIA Referring Unavailable TOR HERNANDEZ Attending Unavailable NESHA SANTANA Referring Unavailable JANICE LANE Primary Care Unavailable JANICE LANE Referring Unavailable JANICE LANE Primary Care Unavailable NAYLA LOUIS Attending Unavailable KARI WILKINSONET Referring Unavailable JANICE LANE Primary Care Unavailable IBAN LAZO Attending Unavailable JANICE LANE Primary Care Unavailable ROXY HOGAN Attending Unavailable JANICE LANE Primary Care Unavailable JANICE LANE Primary Care Unavailable IBAN LAZO Attending Unavailable IBAN LAZO Attending Unavailable JANICE LANE Primary Care Unavailable JAJA, SUNJEET Referring Unavailable JANICE LANE Primary Care Unavailable JANICE LANE Referring Unavailable JANICE LANE Primary Care Unavailable JANICE LANE Primary Care Unavailable IBAN LAZO Attending Unavailable JANICE LANE Primary Care Unavailable IBAN LAZO Attending Unavailable SELF Referring Unavailable JANICE LANE Attending Unavailable JANICE LANE Primary Care Unavailable JANICE LANE Primary Care Unavailable TOR HERNANDEZ Attending Unavailable JANICE LANE Primary Care Unavailable AYAN MARIE Attending Unavailable JANICE LANE Referring Unavailable JANICE LANE Primary Care Unavailable GERMANIA WILKINSON Attending Unavailable JANICE LANE Primary Care Unavailable JANICE LANE Primary Care Unavailable IBAN LAZO Attending Unavailable SELF Referring Unavailable TOR HERNANDEZ Referring Unavailable JANICE LANE Primary Care Unavailable SELF Referring Unavailable CHAMP BAXTER Attending Unavailable JANICE LANE Primary Care Unavailable JANICE LANE Attending Unavailable JANICE LANE Primary Care Unavailable JANICE LANE Referring Unavailable JANICE LANE Primary Care Unavailable GERMANIA WILKINSON Attending Unavailable JANICE LANE Primary Care Unavailable TOR HERNANDEZ Referring Unavailable JANICE LANE Primary Care Unavailable TOR HERNANDEZ Attending Unavailable Domingo SEN, Janice Neal Primary Care Provider 1( [phone] 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[employer] WOOD, Nataly Mt Unavailable Unavailable Unavailable Unavailable Allergies Allergy Classification Reported Allergen(s) Allergy Type Date of Onset Reaction(s) Facility Lecithin (1 source) Lecithin Drug Allergy 9 Other: See Comments, Unknown, Itching, GI Upset [facility] Soy (1 source) Soy protein Food Allergy 0 Intolerance [facility] Soybean Lecithin (1 source) Soybean Lecithin Drug Allergy 2 GI Upset, Unknown [facility] Wheat gluten extract (1 source) Wheat gluten extract Drug Allergy 9 Other: See Comments, Hives, Itching [facility] (2 sources) glutenin; Translations: [GLUTEN] Allergy to substance (finding) 9 [facility] Repository (7 sources) Soy protein; Translations: [SOY ALLERGY] Propensity to adverse reactions to drug (disorder) 0 Headache, Unknown [facility] Repository (7 sources) GLUTEN MEAL; Translations: [GLUTEN MEAL] Propensity to adverse reactions to drug (disorder) 9 Hives, Itching, Unknown [facility] (1 source) LECITHIN ORGANIC-SOYBEAN LECITHIN; Translations: [LECITHIN ORGANIC-SOYBEAN LECITHIN] Propensity to adverse reactions to drug (disorder) 9 [facility] (20 sources) Lecithin; Translations: [LECITHIN] Drug Allergy 9 Other: See Comments, Unknown, Itching, GI Upset, Nausea And Vomiting [facility] Work Phone: (20 sources) Soy protein; Translations: [SOY] Drug Intolerance 0 Intolerance [facility] (20 sources) Wheat gluten extract Drug Allergy 9 Other: See Comments, Hives, Itching [facility] (20 sources) Soybean Lecithin; Translations: [LECITHIN, SOY] Drug Allergy 2 GI Upset, Unknown [facility] (6 sources) Other Allergy to substance 0 Headache [...] on above: Take 2 tablets by mo [facility] every 4 hours as needed. amoxicillin 875 mg oral tablet (20 sources) Penicillin-class Antibacterial Start: 07-19-2024 End: 07-29-2024 take 1 tablet by mouth twice daily amoxicillin (AMOXIL) 875 mg tablet Take 1 tablet by mouth two times a day for 10 days. 20 tablet 07/19/2024 07/29/2024 Active End: 03-30-2024 take 2 tablets by mouth twice daily Amoxicillin 500 mg tablet Take 1,000 mg by mouth two times a day. 03/30/2024 Discontinued (Course of therapy completed) Comment on above: Take 1,000 mg by jose ramon two times a day. B Complex-C (b complex-vitamin c) tablet (6 sources) take 1 tablet by mouth in the morning B Complex-C (b complex-vitamin c) tablet Take 1 tablet by mouth in the morning. Active take 1 tablet by mouth in the mo rning B Complex-C (b complex-vitamin c) tablet Take 1 tablet by mouth in the morning. 0 Active benoxinate hydrochloride 4 mg/ml / fluorescein sodium 2.5 mg/ml ophthalmic solution (1 source) Diagnostic Dye Start: 08-14-2022 End: 08-15-2022 fluorescein-benoxinate 0.25-0.4 % 1 Drop (FLURESS) betamethasone 0.5 mg/ml / clotrimazole 10 mg/ml topical cream (2 sources) Azole Antifungal, Corticosteroid Start: 02-23-2024 clotrimazole-betamethason e (Lotrisone) cream Indications: Vaginal odor , Vaginal discharge , Exposure to STD Apply 1 application topically Daily Apply to affected area daily for 7 days 45 g 02/23/2024 Active cefdinir 300 mg oral capsule (4 sources) Cephalosporin Antibacterial Start: 12-23-2023 End: 01-02-2024 cefdinir (OMNICEF) 300 mg capsule Take 300 mg by mouth. 0 12/23/2023 01/02/2024 Active Comment on above: Take 300 mg by mouth . cetirizine hydrochloride 10 mg oral tablet (6 sources) Histamine-1 Receptor Antagonist Start: 08-09-2023 take 1 tablet by mouth in the morning cetirizine (ZyrTEC) 10 MG tablet Indications: Seasonal allergic rhinitis due to pollen Take 1 tablet (10 mg) by mouth in the morning. 30 tablet 08/09/2023 Active cholecalciferol 0.125 mg oral tablet [...] UNIT PO Daily April 09, 2019 12:00am take 1 tablet by jose ramon every week cholecalciferol (Vitamin D3) 1.25 MG (49170 UT) tablet Take 1.25 mg by mouth once a week Active Comment on above: Take 1 capsule by [facility] one time a week. diphenhydrAMINE hydrochloride 25 mg oral capsule (6 [...] (20 sources) Provitamin D2 Compound Start: 01-31-20 23 End: 03-30-20 24 take 1 capsule by mouth every week ergocalciferol (Vitamin D-2) 1.25 MG (93732 UT) capsule Take 50,000 Units by mouth once a week. 07/31/2023 Active Start: 08-08-2022 take 1 capsule by [facility] every week ergocalciferol 50,000 unit capsule (VITAMIN D2, DRISDOL) Take 1 capsule by mouth one time a week. 12 capsule 3 08/08/2022 Active Comment on above: Take 1 capsule by [facility] one time a week. ferrous sulfate 325 mg oral tablet (20 sources) Start: 02-13-2023 End: 03-15-2023 take 1 tablet by mouth once daily ferrous sulfate 325 mg (65 mg iron) tablet Indications: Iron deficiency anemia due to chronic blood loss Take 1 tablet by mouth once daily. 30 tablet 1 02/13/2023 03/15/2023 Active [facility] S[facility]ate (IRON PO) Take 1 tablet by mouth in the morning. Active FERROUS SULFATE ORAL Take by mouth [...] (FLONASE) 50 mcg/actuation nasal spray Use 1 [place] in each nostril once daily. 1 g 5 09/01/2020 Active Comment on above: Use 1 [place]y in each nostril once daily. 1 ml glatiramer acetate 40 mg/ml prefilled syringe (20 sources) Start: End: inject 40 mg by subcutaneous injection once glatiramer (COPAXONE) 40 mg/mL injection Indications: Multiple sclerosis (HCC) Inject 40 mg subcutaneously every Friday, Friday, and Friday. 12 mL 5 06/23/2024 09/21/2024 Active inject 20 mg by subc utaneous injection in the morning glatiramer (Copaxone,Glatopa) 20 MG/ML solution prefilled syringe Inject 20 mg under the skin in the morning. Active ibuprofen 600 mg oral tablet (18 sources) Nonsteroidal Anti-inflammatory Drug Start: 04-02-2022 Ibuprofen [...] Take 1 tablet by mouth at bedtime. Active Comment on above: Take 1 tablet by jose ramon th daily at bedtime. mometasone furoate 1 mg/ml topical cream (7 sources) Corticosteroid Start: 07-19-2024 mometasone (ELOCON) 0.1 % cream Apply to affected area once daily. 30 g 07/19/2024 Active Start: 07-19-2024 mometasone (El tamara) 0.1 % cream Apply topically Daily 07/19/2024 Active moxifloxacin 400 mg oral tablet (2 sources) Quinolone Antimicrobial Start: 12-11-2023 End: 12-18-2023 take 1 tablet by mouth in the morning moxifloxacin (Avelox) 400 MG tablet Indications: Bacterial infection due to mycoplasma Take 1 tablet (400 mg) by mouth in the morning for 7 days. start medication AFTER completing course of Doxycycline & Azithromycin.. 7 tablet 0 12/11/2023 12/18/2023 Active Multiple Vitamin (multivitamin) tablet (6 sources) take 1 tablet by mouth in the morning Multiple Vitamin (multivitamin) tablet Take 1 tablet by mouth in the morning. Active take 1 tablet by mouth in the mo rning Multiple Vitamin (multivitamin) tablet Take 1 tablet by mouth in the morning. 0 Active multivitamin with minerals (MULTIPLE VITAMIN-MINERALS) tablet (20 sources) take 1 tablet by jose ramon th [...] by jose ramon th every 24 hours. Zlthngslkzaw-Swfy-X olic Acid (1 source) Start: 04-09-2019 take 1 tablet by mouth once daily Multivitamin-Iron- Folic Acid Active 1 TAB Oral Daily April 09, 2019 12:28pm Nrgfqzpmvqvh-Edws-H olic Acid (Multi-Day With Iron) 18-400 mg-mcg Tablet (5 sources) Start: 04-09-2019 take 1 tablet by mouth once daily Multivitamin-Iron- Folic Acid (Multi-Day With Iron) 18-400 mg-mcg Tablet Active 1 TAB PO Daily April 09, 2019 12:28pm Start: 04-09-2019 take 1 tablet by jose ramon th once daily Nuclvwadxnhu-Shca-Nqxca Acid (Multi-Day With Iron) 18-400 mg-mcg Tablet Active 1 TAB PO Daily April 09, 2019 12:00am Start: 04-09-2019 take 1 tablet by jose ramon th once daily Gidxlowqvafo-Barc-Vhrhw Acid (Multi-Day With Iron) 18-400 mg-mcg Tablet [...] infusion Q6M for MS OTC NUTRITIONAL SUPPLEMENT (12 sources) Start: 08-17-2024 End: 09-16-2024 OTC NUTRITIONAL SUPPLEMENT Indications: Multiple sclerosis (HCC) , 19 weeks gestation of Take 1 Each by mouth two times a day. Drink 2 drinks per day. Patient preference to brand and flavor 60 Each 5 08/17/2024 09/16/2024 Active Start: 06-09-2024 End: 08-17-2024 OTC NUTRITIONAL SUPPLEMENT I ndications: Multiple sclerosis (HCC) , 19 weeks gestation of Take 1 Each by mouth two times a day. Drink 2 drinks per day. Patient preference to brand and flavor 30 Each 5 06/09/2024 08/17/2024 Discontinued Start: 06-09-2024 OT NUTRITIONA L SUPPLEMENT Indications: Multiple sclerosis (HCC) , 19 weeks gestation of Take 1 Each by mouth two times a day. Drink 2 drinks per day. Patient preference to brand and flavor 30 Each 5 06/09/2024 Active phenylephrine hydrochloride 25 mg/ml ophthalmic solution (1 source) alpha-1 Adrenergic Agonist Start: 08-14-2022 End: 08-15-2022 PHENYLephrine 2.5 % 1 Drop (AK-DILATE, SABINA-SYNEPHRINE) polyethylene glycol 3350 20582 mg powder for oral solution (20 sources) Osmotic Laxative Start: 03-30-2024 End: 05-29-2024 polyethylene glycol 3350 (MIRALAX) 17 gram/dose powder Indications: Multiple sclerosis (HCC) , Constipation, unspecified constipation type Take 17 g by mouth once daily. Dissolve dose in 4 - 8 ounces of liquid and take as directed. 510 g 1 03/30/2024 05/29/2024 Active Start: 04-19-2021 End: 08-14-2022 polyethylene glycol 3350 (IN RALAX) 17 gram/dose powder Indications: Chronic idiopathic [...] ounces of liquid and take as directed. Bekvedlm-Mab-Zk-FA (Jenliva /) 1 MG capsule (2 sources) Pnnjcyqd-Jwi-Wg-FA (Jenliva /) 1 MG capsule Take by mouth Active Vit-Fe Fumarate-FA ( Plus/Iron) 27-1 MG tablet (2 sources) Start: 03-22-2024 End: 03-22-2025 take 1 tablet by mouth once daily Vit-Fe Fumarate-FA ( Plus/Iron) 27-1 MG tablet Indications: Positive urine test Take 1 tablet by mouth Daily Please dispense what insurance approves. 30 tablet 11 03/22/2024 03/22/2025 Active tiZANidine 2 mg oral tablet (20 [...] Vitamin B Complex (1 source) Start: 04-09-20 take 1 tablet by mouth once daily Vitamin B Complex Active 1 TAB Oral Daily April 09, 2019 12:20pm Vitamin B Complex (B Complex 1) Tablet (5 sources) Start: 04-09-20 take 1 tablet by mouth once daily [...] every four to six hours Hydrocodone-Acetami nophen (Jackson) 5-325 mg Tablet Discontinued 1 TAB PO [...] sources) Macrolide Antimicrobial Start: 02-12-2023 azithromycin (ZITHROMAX Z-AUBRIE) 250 mg tablet 2 tablets by mouth [...] Take by mouth once d aily. Mag Cayxr-H2-Rlcedvur Rt Xt (6 sources) Vitamin D Start: 04-09-2019 End: 04-02-2022 Mag Baqbe-R7-Jpthztte Rt Xt Discontinued TABLET April 09, 2019 12:28pm April 02, 2022 5:24pm Start: 04-09-2019 Mag Oxide-D3-T urmeric Rt Xt Active April 09, 2019 12:28pm Start: 04-09-2019 End: 04-02-2022 Mag Ankch-G3-Zbxszdaq Rt Xt Discontinued TABLET April 09, 2019 12:00am April 02, 2022 5:24pm Start: 04-09-2019 End: 04-02-2022 Mag Wxmor-Y8-Pzjozaaw Rt Xt Discontinued TABLET April 08, 2019 11:00pm April 02, 2022 4:24pm 12 hr dalfampridine 10 mg extended release oral tablet (20 sources) Potassium Channel Arvin Start: 01-17-2023 End: 12-24-2024 take 1 tablet by mouth twice daily dalfampridine ER (AMPYRA) 10 mg tablet Indications: Multiple sclerosis (HCC) Take 1 tablet by mouth two times a day. 60 tablet 11 12/25/2023 07/19/2024 Discontinued Start: 08-08-2022 End: 02-04-2023 take 1 tablet [...] jose ramon th two times a day. doxepin 3 mg oral tablet (6 sources) Tricyclic Antidepressant Start: End: take 1 tablet by mouth once daily at bedtime Doxepin (Silenor) 3 mg Tablet Discontinued 3 MG PO Daily at bedtime April 09, 2019 12:00am April 02, 2022 5:22pm escitalopram 10 mg oral tablet (6 sources) Serotonin Reuptake Inhibitor Start: End: take 1 tablet by mouth once daily Escitalopram Oxalate (Lexapro) 10 mg Tablet Discontinued 10 MG PO Daily April 09, 2019 12:00am April 02, 2022 5:22pm eszopiclone 3 mg oral tablet (7 sources) Start: End: take 1 tablet by mouth once daily at bedtime Eszopiclone (Lunesta) 3 mg Tablet Discontinued 3 MG PO Daily at bedtime April 09, 2019 12:00am April 02, 2022 5:23pm levonorgestrel 0.037370 mg/hr intrauterine system (6 sources) Progestin, Progestin-containing Intrauterine Device Start: Levonorgestrel Active 1 DEVICE Intrauterine Once April [...] 09, 2019 12:00am April 02, 2022 5:23pm melatonin 3 mg oral tablet (20 sources) Start: 2020 End: 2023 take 1 tablet by mouth once daily as needed melatonin 3 mg tablet Take 1 tablet by mouth once daily as needed. 12 tablet 01/11/2021 07/19/2024 Discontinued Comment on above: Take 1 tablet by jose ramon once daily as needed. metroNIDAZOLE 500 mg oral tablet (20 sources) Nitroimidazole Antimicrobial End: 2023 take 1 tablet by mouth three times daily metroNIDAZOLE (FLAGYL) 500 mg tablet Take 500 mg by mouth three times a day. 03/30/2024 Discontinued (Course of therapy completed) Comment on above: Take 500 mg by mouth three times a day. mirtazapine 15 mg oral tablet (20 sources) Start: 2023 End: 2023 take 1 tablet by mouth once daily at bedtime mirtazapine (REMERON) 15 mg tablet Take 1 tablet by mouth daily at bedtime. 30 tablet 1 03/04/2024 07/19/2024 Discontinued 15 ml natalizumab 20 mg/ml injection (6 [...] extended release oral tablet (1 source) Start: 020 take 1 tablet by mouth once daily Potassium 99 MG Oral Tablet TAKE 1 TABLET DAILY DIRECTED. Refills: 0 Start : 05-Jan-2020 Active microencapsulated potassium chloride 20 meq extended release oral tablet (20 sources) End: 023 potassium chloride ER (K-DUR, KLOR-CON) 20 mEq tablet Take 20 mEq by mouth as needed. 0 01/17/2023 Discontinued Comment on above: Take 20 mEq by mouth as needed. Fpcyeoqa-Tq-Hra-Fe-FA ( VITAMIN) tab (20 sources) Start: take 1 tablet by mouth once daily Sjfpriea-Mv-Tdl-Fe- FA ( VITAMIN) tab Indications: Encounter for [...] mg tab (20 sources) Start: 019 End: 022 vitamin B complex with C-FA-CU-ZN renal vitamins [...] Translations: [Mycoplasma infection, unspecified site] 12-11-2023 Episodic Delirium, dementia, and amnestic and other cognitive [...] Malaise and fatigue; Translations: [Other malaise] Onset: 07-01-2024 06-08-2024 Episodic Menstrual disorders (4 sources) Irregular menstruation, unspecified; Translations: [Excessive and frequent menstruation with regular cycle] Onset: 02-24-2024 03-22-2024 Chronic Miscellaneous mental health disorders (20 sources) Chronic insomnia; Translations: [Psychophysiologic insomnia] Onset: 01-04-2020 01-04-2020 Chronic Mood disorders (2 sources) Reactive depression (situational); Translations: [Major depressive disorder, single episode, unspecified] Chronic Multiple sclerosis (20 sources) Multiple sclerosis; Translations: [Multiple sclerosis] Onset: 01-06-2020 03-04-2021 Chronic Nausea and vomiting (2 sources) Vomiting; Translations: [Vomiting, unspecified] 12-23-2023 Episodic Nonmalignant breast conditions (1 source) Nipple discharge; Translations: [Nipple discharge] Onset: 03-17-2024 Episodic Nutritional deficiencies (4 sources) Vitamin D deficiency; Translations: [Vitamin D deficiency, unspecified] Chronic Other aftercare (2 sources) Surgical follow-up; Translations: [Encounter for follow-up examination after completed treatment for conditions other than malignant neoplasm] 12-11-2023 Episodic Other complications of (1 source) care status; Translations: [Maternal care for other known or suspected poor growth, third trimester, not applicable or unspecified] 08-17-2024 Episodic Other complications of (4 sources) Multiple sclerosis; Translations: [Diseases of the nervous system complicating , third trimester] Onset: 06-16-2024 08-17-2024 Episodic Other complications of (3 sources) Short cervical length in ; Translations: [Cervical shortening, third trimester] Onset: 06-16-2024 08-17-2024 Episodic Other connective tissue disease (4 sources) [...] conditions (1 source) Restless legs syndrome; Translations: [Restless leg syndrome] [...] disease (1 source) Snoring; Translations: [Snoring] Onset: 07-01-2024 Episodic Other nervous system disorders (1 source) Other chronic pain; Translations: [Chronic midline low back pain without sciatica] Onset: 03-04-2024 Chronic Other nervous system disorders (1 source) H/O: PICKING TECH disorder; Translations: [History of multiple sclerosis] Episodic Other nervous system disorders (3 sources) Personal history of other diseases of the nervous system and sense organs; Translations: [History of optic neuritis] Episodic Other nervous system disorders (1 source) Incoordination; Translations: [Unspecified lack of coordination] Episodic Other non-traumatic joint disorders (1 source) Pain in right hip joint; Translations: [Pain in right hip] 07-19-2024 Episodic Other nutritional; endocrine; and metabolic disorders (1 source) H/O: endocrine disorder; Translations: [History of hypoglycemia] Episodic Other skin disorders (1 source) Xeroderma; Translations: [Xerosis cutis] 07-19-2024 Episodic Other upper respiratory infections (3 sources) Acute maxillary sinusitis; Translations: [Acute maxillary [...] [Insomnia, unspecified] 03-25-2024 Episodic Residual codes; unclassified (2 sources) Gestation period, 19 weeks; Translations: [19 weeks gestation of ] 06-09-2024 Episodic Residual codes; unclassified (1 source) At risk of apnea; Translations: [Other specified personal risk factors, not elsewhere classified] 06-08-2024 Episodic Residual codes; unclassified (2 sources) Gestation period, 28 weeks; Translations: [28 weeks gestation of ] 08-10-2024 Episodic Residual codes; unclassified (1 source) Other specified personal risk factors, not elsewhere classified; Translations: [At risk for obstructive sleep apnea] Onset: 07-01-2024 Episodic Unclassified (12 sources) Sleep Efficiency Onset: 03-30-2024 03-30-2024 Unclassified (1 source) Chronic midline low back pain without sciatica; Translations: [Chronic midline low back pain without sciatica] Onset: 03-04-2024 Past or Other Problems Problem Classification Problem Date Documented Da te Episodic/Chronic Coma; stupor; and brain damage (20 sources) Daytime somnolence; Translations: [Somnolence] Onset: 07-28-2017 Resolved: 04-20-2021 04-20-2021 Episodic Immunizations and screening for infectious disease (20 sources) Antibody titer - finding; Translations: [Raised antibody titer] Onset: 01-08-2021 01-11-2021 Episodic Other aftercare (20 sources) Patient encounter status; Translations: [Other long term care social worker (current) drug therapy] Onset: 01-08-2021 Resolved: 01-11-2021 [...] Spondylosis; intervertebral disc disorders; other back problems (5 sources) Neck pain; Translations: [Cervicalgia] Onset: 03-04-2024 03-04-2024 Episodic Syncope (20 sources) Syncope; Translations: [Syncope and collapse] Onset: 12-04-2018 Resolved: 07-17-2023 04-17-2021 Episodic Unclassified (20 sources) NO SHOW Onset: 01-22-2021 Resolved: 04-17-2021 04-17-2021 Viral infection (6 sources) Disease caused by 2019-nCoV; Translations: [COVID-19] Onset: 03-22-2024 10-28-2022 Episodic Results Test Name Value Interpretation Reference Range Facility No Panel Informationon 08-17 Interpreted by: Marina Ordoñez Indication ======== Growth for AMA Multigravida, Maternal Thyroid Disorder, Cervical Shortening. History ====== General History Height 168 cm Height (ft) 5 ft Height (in) 6 in Previous Outcomes 2 Para 1 Children born living ?37w 1 Pregnancies delivered at term (T) 1 Living children (L) 1 Other: Vaginal Delivery Maternal Assessment Height 168 cm Height (ft) 5 ft Height (in) 6 in Weight 59 kg Weight (lb) 131 lb Weight gain 0 kg Weight gain (lb) 0 lb BMI 21.14 kg/m Physical Exam Initial weight (lb) 131 lb ========= Tony . Number of fetuses: 1 Dating ====== GA by prior assessment 29 w + 6 d ELLIOTT by prior assessment: 10/27/2024 Ultrasound examination on: 08/17/2024 GA by U/S based upon: AC, BPD, Femur, HC GA by U/S 30 w + 0 d ELLIOTT by U/S: 10/26/2024 Assigned: based on stated ELLIOTT, selected on 06/14/2024 Assigned GA 29 w + 6 d Assigned ELLIOTT: 10/27/2024 Growth Overview Exam date GA BPD (mm) HC (mm) AC (mm) FL (mm) HL (mm) EFW (g) 06/14/2024 20w 5d 49.8 64% 183.3 41% 164.9 71% 33.9 39% 33.5 54% 398 65% 08/17/2024 29w 6d 74.6 40% 276.2 24% 259.2 51% 56.3 28% 1478 39% Impression ========= -Appropriate growth and AFV -No malformations were identified on a limited survey -BPP Score is 8/8 Thank you allowing us to participate in the care of your patient Follow-up ======== Per M visit to follow, plan for serial third trimester growth scans General Evaluation Cardiac activity present. FHR 158 bpm. movements: visualized. Presentation: cephalic Placenta: Placental site: No Previa Seen, posterior Umbilical cord: Cord vessels: 3 vessel cord Amniotic fluid: MVP 5.0 cm. ZEN 11.8 cm. Q1 2.4 cm, Q2 1.8 cm, Q3 2.6 cm, Q4 5.0 cm Biometry Standard BPD 74.6 mm 29w 6d 40% Hadlock OFD 97.2 mm 46% INTERGROWTH-21st HC 276.2 mm 30w 1d 24% Hadlock Cerebellum tr 37.6 mm 30w 6d 75% Mata AC 259.2 mm 30w 1d 51% Hadlock Femur 56.3 mm 29w 4d 28% Hadlock HC / AC 1.07 EFW 1,478 g 29w 4d 39% Hadlock EFW (lb) 3 lb EFW (oz) 4 oz EFW by: Hadlock (RDX-RN-DO-FL) Extended Nursing Administrator 3.4 mm Head / Face / Neck Cephalic index 0.77 24% Nicolaides Extremities / Bony Struc FL / BPD 0.75 FL /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 SPECIMENOrdering Facility: [facility] Address: [address] [place] [address] Performed By: #### 2 276-4, 94693-7 ####[facility] LABCLIA [id number] [place] [address] [place] Urea nitrogen [Mass/Vol] 8 mg/dL Normal 7-21 [facility] Comment on above: Order Comment: Speci men Type: BLOOD SPECIMENOrdering Facility: [facility] Address: [address] [place] [address] Performed By: #### 2 276-4, 98205-2 ####[facility] LABCLIA [id number] [place] [address] [place] Ferritin SerPl-mCncon 2023 Ferritin [Mass/Vol] 36.5 ng/mL Normal 14.7-205.1 [facility] Comment on above: Order Comment: Speci men Type: BLOOD SPECIMENOrdering Facility: [facility] Address: [address] [place] [address] Performed By: #### 2 276-4, 30847-2 ####[facility] LABCLIA [id number] [place] [address] [place] POLYSOMNOGRAM (PSG)/HOME SLE EP APNEA TEST (HSAT)on 07-03-2024 POLYSOMNOGRAM (PSG)/HOME SLEEP APNEA TEST (HSAT) [facility] at [address], [address], [place] [address] ; Home Sleep Apnea Test (HSAT) Study Report Name: CAROL ANN MARTINEZ Date of Study: 07/03/2024 ROBERTS [place]AP[place]#: [id number] Age: 38 (: 1985) ESS: 0 Neck Circ. (cm): 33.0 Height (cm): 168.0 Weight (kg): 55.0 BMI: 19.5 Referring Provider: GERMANIA WILKINSON Mailcode: S73 Sleep history: The patient is a 38 year old female with a history of daytime sleepiness, fatigue, daytime napping, urge to move legs, difficulty initiating and maintaining sleep, and mouth breathing. The patient is here for assessment of obstructive sleep apnea. The patient endorses sleeping in all positions. Pertinent medical history: Hypothyroidism, Seizures, MS Medications: Unisom Sleep procedure: PSG unattended Type III, minimum of 4 parameters (93031) Procedure: This study was performed using a Type III ambulatory PSG device and was unattended. The patient was instructed on proper use of the device by a registered principal technologist. The monitored parameters included heart rate, oxygen saturation, continuous airflow with thermistor and nasal pressure transducer, snoring via nasal pressure transducer, chest and abdominal effort, and body position. ERMA definition: Respiratory event index (ERMA), calculated as respiratory events x 60 / TRT (total recording time in minutes). Note: the apnea hypopnea index has been replaced by the respiratory event index for home sleep apnea test. Since the home sleep apnea test does not measure sleep, the ERMA is most accurate index of respiratory events. The ERMA is a surrogate of the AHI per the AASM Manual for Scoring of Sleep and Associated Events version 3. Apnea definition: The peak signal excursions drop by >90% of pre-event baseline using an oronasal thermal sensor (diagnostic study), PAP device flow (titration study) or an alternative apnea sensor (diagnostic study). The duration of the >90% drop in signal excursion is >=10 seconds. Hypopnea definition: The peak signal excursions drop by >= 30% of pre-event baseline using nasal pressure (diagnostic study), PAP device flow (titration study) or an alternative hypopnea sensor (diagnostic study). The duration of the >= 30% drop in signal excursion is >=10 seconds. There is a greater than or equal to 4% oxygen desaturation from pre-event baseline. RESPIRATORY DATA: The study started at 00:44:03 and ended at 08:59:29 and the total recording time was 495 minutes. By convention, sleep is assumed for the whole recording. Snoring was not noted. There was a total of 3 respiratory events. Of these events, the total number of apneas was 2 (2 obstructive, 0 mixed, and 0 central (0.0%)) and 1 hypopneas. The central apnea index (BAKARI) was 0.0. The respiratory event index (ERMA) was 0.4 events per hour of study time. The mean oxygen saturation during the study was 98.0%, with a minimum oxygen saturation of 93.0%. The patient spent 2.3 minutes at oxygen saturation measured less than 90% (0.5% of recording time) and 2.3 minutes at oxygen saturation measured at or less than 88% (0.5% of recording time). Time ERMA/AHI Supine 0.0 min -- Off-Supine 495.0 min 0.4 Total 495.0 min 0.4 ECG DATA: The average heart rate was 79 bpm with a range of 69 bpm to 121 bpm. ICSD DIAGNOSIS: Sleep Disorder, Unspecified [G47.9] Tachycardia IMPRESSION/RECOMMENDATION S: 1. This study neither confirms nor refutes a diagnosis of obstructive sleep apnea as HSAT does not measure certain types of respiratory events that can only be measured on an in-laboratory polysomnogram. No snoring was noted. No ABHI was noted. 2. Recommend an in-laboratory polysomnogram if sleep apnea remains highly suspected. INTERPRETING PHYSICIAN: MG Marisol DO, MARIEL ABSM I attest that I have performed epoch by epoch review of the entire raw data and find this study to be technically adequate. Report Digitally Signed By: Sam Damon (07/08/2024 4:02:15 PM) Normal [facility] CNCOon 06-21-2024 CNCO Letter Text Normal [facility] CNPNon 06-11-2024 CNPN Telephone (NEMN) ----- CAROL ANN MARTINEZ ([id number]) 1985 F Date Time Provider Department 06/11/24 CHAMP BAXTER During your visit today, we recorded the following information about you: Champ Baxter LSW 06/11/2024 9:25 AM Signed This DEZ put in a referral to the [facility] for pt to get connected to additional resources. 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 Problem List [...] deficit [R41.841] 07/22/2022 07/17/2023 Encounter Status:Closed by CHAMP BAXTER on 06/11/24 Normal [facility] Christinao 03-24-2024 CNPN Telephone (NCCAP) ----- CAROL ANN MARTINEZ ([id number]) 1985 F Date Time Provider Department 03/24/24 [...] Date Reviewed: 01/19/2024 Reviewed by: Kaitlyn Forbes, baseboard heating installer - Fully Assessed Reason for Visit: Appointment [...] (FLONASE) 50 mcg/actuation nasal spray Use 1 Langley in each nostril once daily. Problem List [...] Status:Closed by VIVIANA SANDS on 03/24/24 Normal [facility] HCG,Quantitativeon 4 HCG,Quantitative 201475.00 m[iU]/mL Normal [facility] Comment on above: Result Comment: Appr oximate Approximate hCG Gestational Age Range (mIU/ml) (weeks) 0.2-1 5-50 1-2 50-500 2-3 100-5,000 3-4 500-10,000 4-5 1,000-50,000 5-6 10,000-100,000 6-8 15,000-200,000 8-12 10,000-100,000 PERFORMED BY: [place] [address] PATHOLOGIST MANAGEMENT PSYCHOLOGIST ALEN PRICE M.D. Performed By: #### H CGQNT #### [place] [id number] [facility] US breast BI limitedon 03-17 US breast BI limited [facility] Main [place] [address] [place] [address] Mammography Report Signed Patient: Carol Ann Martinez MR#: [id number] : 1985 Acct:[id number] Age/Sex: 38 / F ADM Date: 03/17/24 Loc: CT Room: Type: [facility] Attending Dr: Clarke Hu Copies to: Clarke Lane MD Ordering Provider: Clarke Hu Date of Service: 03/17/24 MM/MM diagnostic mammo BI w/CAD: RT BREAST LUMP ([id number]) US/US breast BI limited: BILATERAL BREAST LUMPS [...] based on clinical grounds. Impression dictated by: Renetta Chin M.D.03/17/2024 9:57 AM Dictation Location: [facility] Transcribed By: MEGHANN 03/17/24 0957 Dictated By: Renetta Chin II, MD 03/17/24 0923 Signed By: 03/17/24 0957 [facility] XR Cervical spine AP and Lat eral and obliqueon 03-08-2024 IMPRESSION: No acute osseous abnormality. Preserved cervical disc spaces and neural foramina. Fisher Eel Spear: ANGEL Transcribe Date/Time: Mar 08 2024 4:48P Dictated by : VIKTORIYA WALTER MD This examination was interpreted and the report reviewed and electronically signed by: VIKTORIYA AWLTER MD on Mar 08 2024 4:50PM [facility] DIVISION OF RADIOLOGY * * *Final Report* * * DATE [...] soft tissues, possibly external to the patient. DIVISION OF RADIOLOGY Provider, [facility] - 03/08/2024 * * *Final Report* * * DATE [...] soft tissues, possibly external to the patient. IMPRESSION IMPRESSION: No acute osseous abnormality. Preserved cervical disc spaces and neural foramina. Fisher Eel Spear: [facility] Transcribe Date/Time: Mar 08 2024 4:48P Dictated by : VIKTORIYA WALTER MD This examination was interpreted and the report reviewed and electronically signed by: VIKTORIYA WALTER MD on Mar 08 2024 4:50PM [facility] XR Lumbar spine 3 Viewson IMPRESSION: Unremarkable radiographic appearance of the lumbar spine. Fisher Eel Spear: [facility] Transcribe Date/Time: Mar 08 2024 4:47P Dictated by : VIKTORIYA WALTER MD This examination was interpreted and the report reviewed and electronically signed by: VIKTORIYA WALTER MD on Mar 08 2024 4:48PM [facility] DIVISION OF RADIOLOGY * * *Final Report* * * DATE [...] acute fracture is identified. Preserved disc spaces. DIVISION OF RADIOLOGY Provider, Radha Pastora Min - 03/08/2024 * * *Final Report* * * DATE [...] acute fracture is identified. Preserved disc spaces. IMPRESSION IMPRESSION: Unremarkable radiographic appearance of the lumbar spine. Fisher Eel Spear: ANGEL Transcribe Date/Time: Mar 08 2024 4:47P Dictated by : VIKTORIYA WALTER MD This examination was interpreted and the report reviewed and electronically signed by: VIKTORIYA WALTER MD on Mar 08 2024 4:48PM EST [facility] XR Lumbar spine 3 ViewsOrder ed By: Ccf Provider on 03-08-2024 [facility] ESR Westergren method (Bld) [Velocity]on 03-05-2024 ESR (Bld) [Velocity] 5 mm/h [facility] Interpretation and review of laboratory results Normal [facility] JOSSELIN BY IFA WITH REFLEXon Nuclear Ab Ql (S) Negative Normal Negative [facility] Comment on above: Order Comment: Speci men Type: BLOOD SPECIMENOrdering Facility: [facility] Address: [address] [place] [address] Result Comment: Anti -nuclear antibody test is used as an aid in diagnosis of systemic autoimmune diseases. Where positive and clinically warranted, follow-up using disease-specific testing is recommended. Low positive titers are not uncommon with advanced age, certain chronic infections, and malignancies among others. Test methodology: Indirect fluorescence immunoassay (IFA) using HEp-2 cells. Performed By: #### A NAIFR ####[facility] LABCLIA [id number] [place] [id number] [place] CBC W Auto Differential pane l (Bld)on 03-04-2024 Basophils (Bld) [#/Vol] 0.04 10*3/uL [facility] Basophils/100 WBC (Bld) 0.5 % [facility] Differential cell count method Nom (Bld) Auto [facility] Eosinophils (Bld) [#/Vol] [facility] Eosinophils/100 WBC (Bld) 0.3 % [facility] Erythrocyte distribution width (RBC) [Ratio] 15.2 % High 11.5 - 15.0 % [facility] Hematocrit (Bld) [Volume fraction] 40.1 % 36.0 - 46.0 % [facility] Hemoglobin (Bld) [Mass/Vol] 12.4 g/dL 11.5 - 15.5 g/dL [facility] Immature granulocytes (Bld) [#/Vol] [facility] Immature granulocytes/100 WBC (Bld) 0.3 % [facility] Interpretation and review of laboratory results Abnormal [facility] Lymphocytes (Bld) [#/Vol] 1.62 10*3/uL [facility] Lymphocytes/100 WBC (Bld) 21.7 % [facility] MCH (RBC) [Entitic mass] 24.1 pg Low 26.0 - 34.0 pg [facility] MCHC (RBC) [Mass/Vol] 30.9 g/dL 30.5 - 36.0 g/dL [facility] MCV (RBC) [Entitic vol] 77.9 fL Low 80.0 - 100.0 fL [facility] Monocytes (Bld) [#/Vol] 0.69 10*3/uL [facility] Monocytes/100 WBC (Bld) 9.2 % [facility] Neutrophils (Bld) [#/Vol] 5.08 10*3/uL [facility] Neutrophils/100 WBC (Bld) 68.0 % [facility] Nucleated RBC (Bld) [#/Vol] [facility] Nucleated RBC/100 WBC (Bld) [Ratio] 0.0 % /100 WBC [facility] Platelet mean volume (Bld) [Entitic vol] [facility] Comment on above: Unable to Report. Platelets (Bld) [#/Vol] 185 10*3/uL [facility] Comment on above: Results checked and verified.No clot detected. RBC (Bld) [#/Vol] 5.15 10*6/uL 3.90 - 5.2 0 m/uL [facility] WBC (Bld) [#/Vol] 7.47 10*3/uL [facility] This is an appended report. These results have been appended to a previously verified report. [facility] Basophils (Bld) [#/Vol] 0.04 10*3/uL Normal <0.11 [facility] Comment on above: Order Comment: Speci men Type: BLOOD SPECIMENOrdering Facility: [facility] Address: [address] [place] [address] Performed By: #### 5 7021-8, 4536-7 ####[facility] LABCLIA [id number] [place] [address] [place] Basophils/100 WBC (Bld) 0.5 % Normal [facility] Comment on above: Order Comment: Speci men Type: BLOOD SPECIMENOrdering Facility: [facility] Address: [address] [place] [address] Performed By: #### 5 7021-8, 4536-7 ####[facility] LABCLIA [id number] [place] [address] [place] Differential cell count method Nom (Bld) Auto Normal [facility] Comment on above: Order Comment: Speci men Type: BLOOD SPECIMENOrdering Facility: [facility] Address: [address] [place] [address] Performed By: #### 5 7021-8, 4536-7 ####[facility] LABCLIA [id number] [place] [address] [place] Eosinophils (Bld) [#/Vol] 10*3/uL Normal <0.46 [facility] Comment on above: Order Comment: Speci men Type: BLOOD SPECIMENOrdering Facility: [facility] Address: [address] [place] [address] Performed By: #### 5 7021-8, 7-7 ####[facility] LABCLIA [id number] [place] [address] [place] Eosinophils/100 WBC (Bld) 0.3 % Normal [facility] Comment on above: Order Comment: Speci men Type: BLOOD SPECIMENOrdering Facility: [facility] Address: [address] [place] [address] Performed By: #### 5 7021-8, 4537-7 ####[facility] LABCLIA [id number] [place] [address] [place] Erythrocyte distribution width (RBC) [Ratio] 15.2 % High 11.5-15.0 [facility] Comment on above: Order Comment: Speci men Type: BLOOD SPECIMENOrdering Facility: [facility] Address: [address] [place] [address] Performed By: #### 5 7021-8, 4537-7 ####[facility] LABIA [id number] [place] [address] [place] Hematocrit (Bld) [Volume fraction] 40.1 % Normal 36.0-46.0 [facility] Comment on above: Order Comment: Speci men Type: BLOOD SPECIMENOrdering Facility: [facility] Address: [address] [place] [address] Performed By: #### 5 7021-8, 7-7 ####[facility] LABCLIA [id number] [place] [address] [place] Hemoglobin (Bld) [Mass/Vol] 12.4 g/dL Normal 11.5-15.5 [facility] Comment on above: Order Comment: Speci men Type: BLOOD SPECIMENOrdering Facility: [facility] Address: [address] [place] [address] Performed By: #### 5 7021-8, 4537-7 ####[facility] LABCLIA [id number] [place] [address] [place] Immature granulocytes (Bld) [#/Vol] 10*3/uL Normal <0.10 [facility] Comment on above: Order Comment: Speci men Type: BLOOD SPECIMENOrdering Facility: [facility] Address: [address] [place] [address] Performed By: #### 5 7021-8, 4537-7 ####[facility] LABCLIA [id number] [place] [address] [place] Immature granulocytes/100 WBC (Bld) 0.3 % Normal [facility] Comment on above: Order Comment: Speci men Type: BLOOD SPECIMENOrdering Facility: [facility] Address: [address] [place] [address] Performed By: #### 5 7021-8, 7-7 ####[facility] LABCLIA [id number] [place] [address] [place] Lymphocytes (Bld) [#/Vol] 1.62 10*3/uL Normal 1.00-4.00 [facility] Comment on above: Order Comment: Speci men Type: BLOOD SPECIMENOrdering Facility: [facility] Address: [address] [place] [address] Performed By: #### 5 7021-8, 7-7 ####[facility] LABCLIA [id number] [place] [address] [place] Lymphocytes/100 WBC (Bld) 21.7 % Normal [facility] Comment on above: Order Comment: Speci men Type: BLOOD SPECIMENOrdering Facility: [facility] Address: [address] [place] [address] Performed By: #### 5 7021-8, 4537-7 ####[facility] LABCLIA [id number] [place] [address] [place] MCH (RBC) [Entitic mass] 24.1 pg Low 26.0-34.0 [facility] Comment on above: Order Comment: Speci men Type: BLOOD SPECIMENOrdering Facility: [facility] Address: [address] [place] [address] Performed By: #### 5 7021-8, 4537-7 ####[facility] LABCLIA [id number] [place] [address] [place] MCHC (RBC) [Mass/Vol] 30.9 g/dL Normal 30.5-36.0 [facility] Comment on above: Order Comment: Speci men Type: BLOOD SPECIMENOrdering Facility: [facility] Address: [address] [place] [address] Performed By: #### 5 7021-8, 4537-7 ####[facility] LABIA [id number] [place] [address] [place] MCV (RBC) [Entitic vol] 77.9 fL Low 80.0-100.0 [facility] Comment on above: Order Comment: Speci men Type: BLOOD SPECIMENOrdering Facility: [facility] Address: [address] [place] [address] Performed By: #### 5 7021-8, 4536-7 ####[facility] LABCLIA [id number] [place] [address] [place] Monocytes (Bld) [#/Vol] 0.69 10*3/uL Normal <0.87 [facility] [facility] [place] Comment on above: Order Comment: Speci men Type: BLOOD SPECIMENOrdering Facility: [facility] Address: [address] [place] [address] Performed By: #### 5 7021-8, 7-7 ####[facility] LABCLIA [id number] [place] [address] [place] Monocytes/100 WBC (Bld) 9.2 % Normal [facility] [place] Comment on above: Order Comment: Speci men Type: BLOOD SPECIMENOrdering Facility: [facility] Address: [address] [place] [address] Performed By: #### 5 7021-8, 7-7 ####[facility] LABCLIA [id number] [place] [address] [place] Neutrophils (Bld) [#/Vol] 5.08 10*3/uL Normal 1.45-7.50 [facility] [place] Comment on above: Order Comment: Speci men Type: BLOOD SPECIMENOrdering Facility: [facility] Address: [address] [place] [address] Performed By: #### 5 7021-8, 4536-7 ####[facility] LABCLIA [id number] [place] [address] [place] Neutrophils/100 WBC (Bld) 68.0 % Normal [facility] [place] Comment on above: Order Comment: Speci men Type: BLOOD SPECIMENOrdering Facility: [facility] Address: [address] [place] [address] Performed By: #### 5 7021-8, 4536-7 ####[facility] LABCLIA [id number] [place] [address] [place] Nucleated RBC (Bld) [#/Vol] 10*3/uL Normal <0.01 [facility] [place] Comment on above: Order Comment: Speci men Type: BLOOD SPECIMENOrdering Facility: [facility] Address: [address] [place] [address] Performed By: #### 5 7021-8, 4536-7 ####[facility] LABCLIA [id number] [place] [address] [place] Nucleated RBC/100 WBC (Bld) [Ratio] 0.0 /100 WBC Normal [facility] [place] Comment on above: Order Comment: Speci men Type: BLOOD SPECIMENOrdering Facility: [facility] Address: [address] [place] [address] Performed By: #### 5 7021-8, 4536-7 ####[facility] LABCLIA [id number] [place] [address] [place] Platelet mean volume (Bld) [Entitic vol] Normal [facility] [place] Comment on above: Order Comment: Speci men Type: BLOOD SPECIMENOrdering Facility: [facility] Address: [address] [place] [address] Result Comment: Unab le to Report. Performed By: #### 5 7021-8, 4537-7 ####[facility] LABCLIA [id number] [place] [address] [place] Platelets (Bld) [#/Vol] 185 10*3/uL Normal 150-400 [facility] [place] Comment on above: Order Comment: Speci men Type: BLOOD SPECIMENOrdering Facility: [facility] Address: [address] [place] [address] Result Comment: Resu lts checked and verified.No clot detected. Performed By: #### 5 7021-8, 4537-7 ####[facility] LABCLIA [id number] [place] [address] [place] RBC (Bld) [#/Vol] 5.15 10*6/uL Normal 3.90-5.20 [facility] Comment on above: Order Comment: Speci men Type: BLOOD SPECIMENOrdering Facility: [facility] Address: [address] [place] [address] Performed By: #### 5 7021-8, 4537-7 ####[facility] LABCLIA [id number] [place] [address] [place] WBC (Bld) [#/Vol] 7.47 10*3/uL Normal 3.70-11.00 [facility] Comment on above: Order Comment: Speci men Type: BLOOD SPECIMENOrdering Facility: [facility] Address: [address] [place] [address] Performed By: #### 5 7021-8, 4537-7 ####[facility] LABCLIA [id number] [facility] [id number] [address] [place] CNOVon 03-04-2024 CNOV Office Visit ([facility] ) ----- CAROL ANN MARTINEZ ([id number]) 1985 F Date Time Provider Department 03/04/24 1:[address] [facility] During your visit today, we recorded the following information about you: Temperature Pulse Blood pressure Weight 98.1 degrees 95/minute 101/66 55.7 kg Height 1.689 m Cintia Cadena MA 03/04/2024 1:00 PM Signed [facility] FA[facility] Please visit our lab at least 3-5 days before your scheduled appointment to have your lab work drawn, if lab work is ordered. This will allow us the ability to review your lab work results with you during your scheduled visit. [facility]RS: Lab is open Friday - Friday from 6:30am to 5pm and open 8am -12pm on Saturdays. [facility]: Friday- 7:30am to 5:30pm. Fridays [...] medicine, or pediatrics at any of [facility] locations and main campus. Janice Lane MD 03/04/2024 3:19 PM Signed Carol Ann Beto Martinez is a 38 year old [...] MIRIAN MCGRATH (more content not included)... Normal [facility] [place] CRP SerPl-mCncon 03-04-2024 CRP [Mass/Vol] mg/L Normal <0.9 [facility] [place] Comment on above: Order Comment: Speci men Type: BLOOD SPECIMENOrdering Facility: [facility] Address: [address] [place] [address] Performed By: #### 2 276-4, 94564-6, 84269-0, 1988-03 ####[facility] LABCLIA [id number] [facility] [id number] [address] [place] ESR Westergren method (Bld) [Velocity]on 03-04-2024 ESR (Bld) [Velocity] 5 mm/h Normal 0-20 [facility] Comment on above: Order Comment: Speci men Type: BLOOD SPECIMENOrdering Facility: [facility] Address: [address] [place] [address] Performed By: #### 5 7021-8, 4537-7 ####[facility] LABCLIA [id number] [place] [id number] [place] Ferritin SerPl-mCncon 2023 Ferritin [Mass/Vol] 14.2 ng/mL Low 14.7-205.1 [facility] Comment on above: Order Comment: Speci men Type: BLOOD SPECIMENOrdering Facility: [facility] Address: [address] [place] [address] Performed By: #### 2 276-4, 46430-9, 12237-3, 1988-03 ####[facility] LABCLIA [id number] [place] [address] [place] Iron and Iron binding capaci ty panelon 03-04-2024 Iron [Mass/Vol] 90 ug/dL Normal 41-186 [facility] [place] Comment on above: Order Comment: Speci men Type: BLOOD SPECIMENOrdering Facility: [facility] Address: [address] [place] [address] Performed By: #### 2 276-4, 51425-7, 96734-7, 1988-03 ####[facility] LABIA [id number] [place] [address] [place] Iron binding capacity [Mass/Vol] 351 ug/dL Normal 232-386 [facility] [place] Comment on above: Order Comment: Speci men Type: BLOOD SPECIMENOrdering Facility: [facility] Address: [address] [place] [address] Performed By: #### 2 276-4, 97700-5, 54231-3, 1988-03 ####[facility] LABIA [id number] [place] [id number] [place] Iron/TIBC [Molar ratio] 25.6 % Normal 15.0-57.0 [facility] [place] Comment on above: Order Comment: Speci men Type: BLOOD SPECIMENOrdering Facility: [facility] Address: [address] [place] [address] Performed By: #### 2 276-4, 52349-2, 58748-7, 1988-03 ####[facility] LABCLIA [id number] [place] [id number] [place] No Panel Informationon 03-04 Radiology Study observation (narrative) [facility] Rheumatoid fact SerPl-aCncon 03-04-2024 Rheumatoid factor Qn [IU]/mL Normal <16 [facility] Comment on above: Order Comment: Speci men Type: BLOOD SPECIMENOrdering Facility: [facility] Address: [address] [place] [address] Performed By: #### 2 276-4, 09617-1, 42830-2, 1988-03 ####[facility] LABCLIA [id number] [address] [place] Urate SerPl-mCncon Urate [Mass/Vol] 3.1 mg/dL Normal 2.5-6.6 [facility] Comment on above: Order Comment: Speci men Type: BLOOD SPECIMENOrdering Facility: [facility] Address: [address] [place] [address] Performed By: #### 3 084-1 ####[facility] LABCLIA [id number] [place] [address] [place] XR CERVICAL 4V [...] Preserved cervical disc spaces and neural foramina. Fisher Eel Spear: ANGEL Transcribe Date/Time: Mar 08 2024 4:48P Dictated by : VIKTORIYA WALTER MD This examination was interpreted and the report reviewed and electronically signed by: VIKTORIYA WALTER MD on Mar 08 2024 4:50PM EST [id number] Normal [facility] [place] XR LUMBAR 3V AP/LAT/L5-S1on 03-04-2024 XR LUMBAR [...] Unremarkable radiographic appearance of the lumbar spine. Fisher Eel Spear: [facility] Transcribe Date/Time: Mar 08 2024 4:47P Dictated by : VIKTORIYA WALTER MD This examination was interpreted and the report reviewed and electronically signed by: VIKTORIYA WALTER MD on Mar 08 2024 4:48PM EST [id number] Normal [facility] [place] A1C with Estimated Average G rober 02-24-2024 Glucose [Mass/Vol] 100 mg/dL Normal [facility] Comment on above: Result Comment: PERF ORMED BY: [facility] [address] [place] [address] PATHOLOGIST MANAGEMENT PSYCHOLOGIST ALEN PRICE M.D. Performed By: #### P TT, HCGQNT, CBC, PT, T4F, A1C WT eA, TSH3 #### [address] HbA1c (Bld) [Mass fraction] 5.1 % Normal 4.3-5.6 [facility] Comment on above: Result Comment: Incr eased risk for diabetes: 5.7 - 6.4 diabetes: >6.4 glycemic control for adults with diabetes: <7.0 Performed By: #### P TT, HCGQNT, CBC, PT, T4F, A1C WTH eA, TSH3 #### [facility] [address] [place] [address] Activated partial thrombopla stin time (aPTT) in platelet poor plasma by coagulation aOrdered By: Clarke Hu on 02-24-2024 aPTT Coag (PPP) [Time] 33.7 s 25.1-36.5 [facility] Comment on above: A hematocrit value g reater than 55% may lead to inaccurate results in coagulation testing. Patients having hematocrit values >55% require a special collection tube for coagulation studies. Please contact the laboratory at [phone] for redraw instructions. Basophils Auto (Bld) [#/Vol] Ordered By: Clarke Hu on 02-24-2024 Basophils (Bld) [#/Vol] 0.0 10*3/uL 0.0-0.2 [facility] Basophils/100 WBC Auto (Bld) Ordered By: Clarke Hu on 02-24-2024 Basophils/100 WBC (Bld) 0.5 % . [facility] CNPLilli 02-24-2024 TRE[facility] ----- CAROL ANN MARTINEZ ([id number]) 1985 F Date Time Provider Department 02/24/24 TOR HERNANDEZ During your visit today, we recorded the following information about you: Shereen Scott 02/24/2024 2:33 PM Signed [place] Call Name of caller : Milady Relationship to patient: Barney Osorio Return call phone number : [phone] Reason for call : Other : Brief description of concern : The patient is not considered homebound and they are unable to admit the patient. Champ Baxter LSW 02/26/2024 10:08 AM Signed Spoke with [facility], Iris [...] send the orders. 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 orders placed Tor Hernandez APRN.CNP February 26, 2024 10:23 AM Tor Hernandez APRN.[facility] 02/26/2024 10:24 AM Signed Addended by: [...] Date Reviewed: 01/19/2024 Reviewed by: Kaitlyn Forbes, baseboard heating installer - Fully Assessed Primary Visit Diagnosis:Multiple sclerosis (HCC) [G35] Order(s):CONSULT TO PHYSICAL THERAPY [9032] Order #: [id number]: 1 FUTURE CONSULT TO PACKER DENTURE [438785] Order #: [id number]: 1 FUTURE CONSULT TO SPEECH THERAPY [2101949] Order #: [id number]: 1 FUTURE Prescriptions as of 02/26/2024 - [...] (FLONASE) 50 mcg/actuation nasal spray Use 1 [place]y in each nostril once daily. Problem List [...] extremity [R6 (more content not included)... Normal [facility] [place] Choriogonadotropin.beta subu nit [Units/volume] in Serum or PlasmaOrdered By: Clarke Hu on 02-24-2024 HCG.beta subunit Qn 791.11 m[IU]/mL [facility] Comment on above: Approximate Approxim ate hCG Gestational Age Range (mIU/ml) (weeks)0.2-1 5-50 1-2 50-500 2-3 100-5,000 3-4 500-10,000 4-5 1,000-50,000 5-6 10,000-100,000 6-8 15,000-200,000 8-12 10,000-100,000 Complete Blood Count Auto Di ffon 02-24-2024 Basophils (Bld) [#/Vol] 0.0 10*3/uL Normal 0.0-0.2 [facility] Comment on above: Result Comment: PERF ORMED BY: [place] [address] PATHOLOGIST MANAGEMENT PSYCHOLOGIST ALEN PRICE M.D. Performed By: #### P TT, HCGQNT, CBC, PT, T4F, A1C WTH eA, TSH3 #### [place] [address] [place] Basophils/100 WBC (Bld) 0.5 % Normal . [facility] Comment on above: Performed By: #### P TT, HCGQNT, CBC, PT, T4F, A1C WTH eA, TSH3 #### [place] [address] [place] Eosinophils (Bld) [#/Vol] 0.0 10*3/uL Normal 0.0-0.45 [facility] Comment on above: Performed By: #### P TT, HCGQNT, CBC, PT, T4F, A1C WTH eA, TSH3 #### [place] [address] [place] Eosinophils/100 WBC (Bld) 0.2 % Normal . [facility] Comment on above: Performed By: #### P TT, HCGQNT, CBC, PT, T4F, A1C WTH eA, TSH3 #### [address] Erythrocyte distribution width (RBC) [Ratio] 15.2 % Normal 11.9-15.3 [facility] Comment on above: Performed By: #### P TT, HCGQNT, CBC, PT, T4F, A1C WTH eA, TSH3 #### [address] Hematocrit (Bld) [Volume fraction] 36.9 % Normal 34.0-46.4 [facility] Comment on above: Performed By: #### P TT, HCGQNT, CBC, PT, T4F, A1C WTH eA, TSH3 #### [address] Hemoglobin (Bld) [Mass/Vol] 11.7 g/dL Low 11.8-15.4 [facility] Comment on above: Performed By: #### P TT, HCGQNT, CBC, PT, T4F, A1C WTH eA, TSH3 #### [address] Lymphocytes (Bld) [#/Vol] 2.1 10*3/uL Normal 1.00-4.8 [facility] Comment on above: Performed By: #### P TT, HCGQNT, CBC, PT, T4F, A1C WTH eA, TSH3 #### [address] Lymphocytes/100 WBC (Bld) 26.9 % Normal . [facility] Comment on above: Performed By: #### P TT, HCGQNT, CBC, PT, T4F, A1C WTH eA, TSH3 #### [address] MCH (RBC) [Entitic mass] 24.4 pg Low 24.7-34.3 [facility] Comment on above: Performed By: #### P TT, HCGQNT, CBC, PT, T4F, A1C WTH eA, TSH3 #### [address] MCV (RBC) [Entitic vol] 76.5 fL Low 80-100 [facility] Comment on above: Performed By: #### P TT, HCGQNT, CBC, PT, T4F, A1C WTH eA, TSH3 #### [address] Mean Corpuscular HGB Conc 31.8 g/dL Low 32.0-35.0 [facility] Comment on above: Performed By: #### P TT, HCGQNT, CBC, PT, T4F, A1C WTH eA, TSH3 #### [address] Monocytes (Bld) [#/Vol] 0.7 10*3/uL Normal 0.0-0.8 [facility] Comment on above: Performed By: #### P TT, HCGQNT, CBC, PT, T4F, A1C WTH eA, TSH3 #### [place] [address] [place] Monocytes/100 WBC (Bld) 9.3 % Normal . [facility] Comment on above: Performed By: #### P TT, HCGQNT, CBC, PT, T4F, A1C WTH eA, TSH3 #### [place] [address] [place] Neutrophils (Bld) [#/Vol] 5.0 10*3/uL Normal 1.8-7.7 [facility] Comment on above: Performed By: #### P TT, HCGQNT, CBC, PT, T4F, A1C WTH eA, TSH3 #### [address] Neutrophils/100 WBC (Bld) 63.1 % Normal . [facility] Comment on above: Performed By: #### P TT, HCGQNT, CBC, PT, T4F, A1C WTH eA, TSH3 #### [address] NRBC% 0.0 /100{WBC} Normal 0-0.5 [facility] Comment on above: Performed By: #### P TT, HCGQNT, CBC, PT, T4F, A1C WTH eA, TSH3 #### [address] Platelet mean volume (Bld) [Entitic vol] 11.1 fL High 6.3-10.7 [facility] Comment on above: Performed By: #### P TT, HCGQNT, CBC, PT, T4F, A1C WTH eA, TSH3 #### [place] [address] [place] Platelets (Bld) [#/Vol] 187 10*3/uL Normal 150-450 [facility] Comment on above: Performed By: #### P TT, HCGQNT, CBC, PT, T4F, A1C WTH eA, TSH3 #### [facility] [address] RBC (Bld) [#/Vol] 4.82 10*6/uL Normal 3.60-5.00 [facility] Comment on above: Performed By: #### P TT, HCGQNT, CBC, PT, T4F, A1C WTH eA, TSH3 #### [facility] [address] WBC (Bld) [#/Vol] 7.9 10*3/uL Normal 3.8-11.6 [facility] Comment on above: Performed By: #### P TT, HCGQNT, CBC, PT, T4F, A1C WTH eA, TSH3 #### [facility] [address] Eosinophils Auto (Bld) [#/Vo l]Ordered By: Clarke Hu on 02-24-2024 Eosinophils (Bld) [#/Vol] 0.0 10*3/uL 0.0-0.45 [facility] Eosinophils/100 WBC Auto (Bl d)Ordered By: Clarke Hu on 02-24-2024 Eosinophils/100 WBC (Bld) 0.2 % . [facility] Erythrocyte distribution wid th Auto (RBC) [Ratio]Ordered By: Clarke Hu on 02-24-2024 Erythrocyte distribution width (RBC) [Ratio] 15.2 % 11.9-15.3 [facility] Free T4 (Free Thyroxine)on 0 02-24-2024 Free T4 [Mass/Vol] 0.82 ng/dL Normal 0.61-1.12 [facility] Comment on above: Performed By: #### P TT, HCGQNT, CBC, PT, T4F, A1C WTH eA, TSH3 #### [address] Glucose mean value [Mass/vol ume] in Blood Estimated from glycated hemoglobinOrdered By: Clarke Hu on 02-24-2024 Average glucose Estimated from glycated hemoglobin (Bld) [Mass/Vol] 100 mg/dL [facility] HCG,Quantitativeon HCG,Quantitative 791.11 m[iU]/mL Normal [facility] Comment on above: Result Comment: Appr oximate Approximate hCG Gestational Age Range (mIU/ml) (weeks) 0.2-1 5-50 1-2 50-500 2-3 100-5,000 3-4 500-10,000 4-5 1,000-50,000 5-6 10,000-100,000 6-8 15,000-200,000 8-12 10,000-100,000 PERFORMED BY: [place] [address] PATHOLOGIST MANAGEMENT PSYCHOLOGIST ALEN PRICE M.D. Performed By: #### P TT, HCGQNT, CBC, PT, T4F, A1C WTH eA, TSH3 #### [address] Hematocrit Auto (Bld) [Volum e fraction]Ordered By: Clarke Hu on 02-24-2024 Hematocrit (Bld) [Volume fraction] 36.9 % 34.0-46.4 [facility] Hemoglobin A1c percentageOrd ered By: Clarke Hu on 02-24-2024 HbA1c (Bld) [Mass fraction] 5.1 % 4.3-5.6 [facility] Comment on above: Increased risk for d iabetes: 5.7 - 6.4diabetes: >6.4glycemic control for adults with diabetes: <7.0 Hemoglobin [Mass/volume] in BloodOrdered By: Clarke Hu on 02-24-2024 Hemoglobin (Bld) [Mass/Vol] 11.7 g/dL 11.8-15.4 [facility] INR in Platelet poor plasma by Coagulation assayOrdered By: Clarke Hu on 02-24-2024 INR Coag (PPP) [Relative time] 1.1 {INR} [facility] Comment on above: INR Therapeutic Rang e [...] (Bld) [#/Vol] 7.9 10*3/uL 3.8-11.6 [facility] Lymphocytes Auto (Bld) [#/Vo l]Ordered By: Clarke Hu on 02-24-2024 Lymphocytes (Bld) [#/Vol] 2.1 10*3/uL 1.00-4.8 [facility] Lymphocytes/100 WBC Auto (Bl d)Ordered By: Clarke Hu on 02-24-2024 Lymphocytes/100 WBC (Bld) 26.9 % . [facility] MCH Auto (RBC) [Entitic mass ]Ordered By: Clarke Hu on 02-24-2024 MCH (RBC) [Entitic mass] 24.4 pg 24.7-34.3 [facility] MCHC Auto (RBC) [Mass/Vol]Or dered By: Clarke Hu on 02-24-2024 MCHC (RBC) [Mass/Vol] 31.8 g/dL 32.0-35.0 [facility] MCV Auto (RBC) [Entitic vol] Ordered By: Clarke Hu on 02-24-2024 MCV (RBC) [Entitic vol] 76.5 fL 80-100 [facility] Monocytes Auto (Bld) [#/Vol] Ordered By: Clarke Hu on 02-24-2024 Monocytes (Bld) [#/Vol] 0.7 10*3/uL 0.0-0.8 [facility] Monocytes/100 WBC Auto (Bld) Ordered By: Clarke Hu on 02-24-2024 Monocytes/100 WBC (Bld) 9.3 % . [facility] Neutrophils Auto (Bld) [#/Vo l]Ordered By: Clarke Hu on 02-24-2024 Neutrophils (Bld) [#/Vol] 5.0 10*3/uL 1.8-7.7 [facility] Neutrophils/100 WBC Auto (Bl d)Ordered By: Clarke Hu on 02-24-2024 Neutrophils/100 WBC (Bld) 63.1 % . [facility] Nucleated erythrocytes [Pres ence] in Blood by Automated countOrdered By: Clarke Hu on 02-24-2024 Nucleated RBC Auto Ql (Bld) 0.0 /100{WBC} 0-0.5 [facility] Partial Thromboplastin Timeo n 02-24-2024 aPTT Coag (Bld) [Time] 33.7 s Normal 25.1-36.5 [facility] Comment on above: Result Comment: A he matocrit value greater than 55% may lead to inaccurate results in coagulation testing. Patients having hematocrit values >55% require a special collection tube for coagulation studies. Please contact the laboratory at [phone] for redraw instructions. PERFORMED BY: [place] [address] PATHOLOGIST MANAGEMENT PSYCHOLOGIST ALEN PRICE M.D. Performed By: #### P TT, HCGQNT, CBC, PT, T4F, A1C WTH eA, TSH3 #### [facility] [address] [place] [address] Platelet mean volume Auto (B ld) [Entitic vol]Ordered By: Clarke Hu on 02-24-2024 Platelet mean volume (Bld) [Entitic vol] 11.1 fL 6.3-10.7 [facility] Platelets Auto (Bld) [#/Vol] Ordered By: Clarke Hu on 02-24-2024 Platelets (Bld) [#/Vol] 187 10*3/uL 150-450 [facility] Prothrombin Time INRon 02-23 INR Coag (PPP) [Relative time] 1.1 {INR} Normal [facility] Comment on above: Result Comment: [...] PT, T4F, A1C WTH eA, TSH3 #### [facility] [address] PT Coag (PPP) [Time] 12.2 s Normal 9.0-12.9 [facility] Comment on above: Result Comment: A he matocrit value greater than 55% may lead to inaccurate results in coagulation testing. Patients having hematocrit values >55% require a special collection tube for coagulation studies. Please contact the laboratory at [phone] for redraw instructions. Performed By: #### P TT, HCGQNT, CBC, PT, T4F, A1C WT eA, TSH3 #### [facility] [address] Prothrombin time (PT)Ordered By: Clarke Hu on 02-24-2024 PT Coag (PPP) [Time] 12.2 s 9.0-12.9 [facility] Comment on above: A hematocrit value g reater than 55% may lead to inaccurate results in coagulation testing. Patients having hematocrit values >55% require a special collection tube for coagulation studies. Please contact the laboratory at [phone] for redraw instructions. RBC Auto (Bld) [#/Vol]Ordere d By: Clarke Hu on 02-24-2024 RBC (Bld) [#/Vol] 4.82 10*6/uL 3.60-5.00 [facility] Thyroid Stimulating Hormoneo n 02-24-2024 TSH Qn 0.96 m[IU]/L Normal 0.45-5.33 [facility] Comment on above: Performed By: #### P TT, HCGQNT, CBC, PT, T4F, A1C WTH eA, TSH3 #### [facility] [address] Thyrotropin [Units/volume] i n Serum or PlasmaOrdered By: Clarke Hu on 02-24-2024 TSH Qn 0.96 m[IU]/L 0.45-5.33 [facility] Thyroxine (T4) free [Mass/vo lume] in Serum or PlasmaOrdered By: Clarke Hu on 02-24-2024 Free T4 [Mass/Vol] 0.82 ng/dL 0.61-1.12 [facility] WBC Auto (Bld) [#/Vol]Ordere d By: Clarke Hu on 02-24-2024 WBC (Bld) [#/Vol] 7.9 10*3/uL 3.8-11.6 [facility] CNPNon 02-18-2024 CNPN Telephone ([facility]) ----- CAROL ANN MARTINEZ F ([id number]) 1985 F Date Time Provider Department 02/18/24 CHAMP BAXTER During your visit today, we recorded the following information about you: Diana Garcia 02/18/2024 8:55 AM Signed Tex Call Name of caller : [facility] Relationship to patient: Self Return call phone number : [phone] Reason for call : Would like a call back regarding the patient Champ Baxter LSW 02/18/2024 2:04 PM Signed Responded [...] Date Reviewed: 01/19/2024 Reviewed by: Kaitlyn Forbes, baseboard heating installer - Fully Assessed Reason for Visit: Patient [...] (FLONASE) 50 mcg/actuation nasal spray Use 1 Langley in each nostril once daily. Problem List [...] deficit [R41.841] 07/22/2022 07/17/2023 Encounter Status:Closed by CHAMP BAXTER on 02/18/24 [facility] CNPNon 02-03-2024 CNPN Telephone (NEMSMN) ----- CAROL ANN MARTINEZ F ([id number]) 1985 F Date Time Provider Department 02/03/24 CHAMP BAXTER NEMROMEO During your visit today, we recorded the following information about you: Clarice Zepeda HUC 02/03/2024 1:33 PM Signed Tex Call Name of caller : [facility] Relationship to patient: [facility] Return call phone number : [phone] Reason for call : Other : Brief description of concern : Has follow up questions Champ Baxter LSW 02/04/2024 9:37 AM Signed Returned BROOKLYN Simmons's call. Iris stated pt was approved for a [facility] aide one day a week for 45 min to assist with additonal care needs. Iris is requesting an order from the doctor to start care. I will e-mail Iris the order when completed. DEZ Archer, [facility] Social Work Allergies As of Date: 02/03/2024 [...] Date Reviewed: 01/19/2024 Reviewed by: Kaitlyn Forbes, baseboard heating installer - Fully Assessed Reason for Visit: Patient [...] (FLONASE) 50 mcg/actuation nasal spray Use 1 Langley in each nostril once daily. Problem List [...] deficit [R41.841] 07/22/2022 07/17/2023 Encounter Status:Closed by CHAMP BAXTER on 02/04/24 Normal [facility] MR Thoracic spine WO and W c ontrast Joe 01-19-2024 [facility] MRI THORACIC SPINE WO/W IVCO Non 01-19-2024 [...] identified to suggest active or progressive disease. Fisher Eel Spear: PSCPanfilo Transcribe Date/Time: Jan 19 2024 3:31P Dictated by : LOVE WHARTON MD This examination was interpreted and the report reviewed and electronically signed by: LOVE WHARTON MD on Jan 19 2024 3:43PM EST [id number] Normal [facility] CNPNon 01-05-2024 CNPN Telephone (NEMSMN) ----- MARTINEZCAROL ANN GREWAL ([id number]) 1985 F Date Time Provider Department 01/05/24 CHAMP BAXTERROSARIOLuís During your visit today, we recorded [...] Date Reviewed: 12/25/2023 Reviewed by: Tor Hernandez APRN.TOY ASSEMBLER WOOD - Fully Assessed Reason for Visit: Appointment [...] (FLONASE) 50 mcg/actuation nasal spray Use 1 Langley in each nostril once daily. Problem List [...] Status:Closed by NADINE JAMES on 01/05/24 Normal [facility] CNOVon 12-25-2023 CNOV Office Visit (NEMSLR ) ----- CAROL ANN MARTINEZ ([id number]) 1985 F Date Time Provider Department 12/25/23 11:00 AM TOR HERNANDEZ During your visit today, we recorded the following information about you: Pulse Blood pressure Weight Last Period 87/minute 95/67 56.8 kg 12/21/23 Tor Hernandez APRN.TOY ASSEMBLER WOOD 12/25/2023 12:09 PM [facility] FOLLOWUP/ESTABLISHED PATIENT VISIT PRINCIPAL NEUROLOGIC DIAGNOSIS: Multiple Sclerosis DISEASE SUMMARY Date of onset: 03/2007 Date of diagnosis of MS: 03/2007 Disease course at onset: Relapsing-Remitting Current disease course: Progressive without relapses Previous disease therapies: - Betaseron 9535-4303 - Copaxone 0063-8074 - Tysabri 2009-Summer 2019 (stopped due to [...] over 3 weeks following occipital relase - 3841-6855 recurrent OS ON - 6477-6301 several relapses including L numbness, weakness, constipation, urinary urgency - 2019 R weakness and numbness needing a wheelchair, hospitalized at [facility] (off Tysabri x3 months due to planning [...] 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, ot, 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, sw, 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, is unable [...] Visit from 07/23/2023 in [facility] Office Visit from 01/17/2023 in [facility] Appointment from 01/15/2023 in [facility] Upper Extremity Domain T Score 28.29 [...] Visit from 07/23/2023 in [facility] Office Visit from 01/17/2023 in [facility] Appointment from 01/15/2023 in [facility] Sleep Domain T Score 69.2 68.89 [...] in prior , currently , HIV infection ([facility]), Hypertension, Infertility, female, L (more content not included)... Normal [facility] CNPNon 12-25-2023 CNPN Telephone (HCSIND) ----- CAROL ANN MARTINEZ F ([id number]) 1985 F Date Time Provider Department 12/25/23 LISA ELLIOTT HCSIND During your visit today, we recorded the following information about you: Lisa Elliott 12/25/2023 2:08 PM Addendum Spoke with Roxy from [facility] and accepted the patient for Home Care. Thank you for the referral of your patient to [facility]. At this time, we are unable to accommodate your patient's needs in a safe and timely fashion. In order to help your patient receive quality home care, we will assist in finding alternate staffing. I have forwarded the referral to [facility], and it is pending. I will notify you when we have an accepting agency. Thank you. Thank you for the referral of your patient to [facility]. At this time, we are unable to accommodate your patient's needs in a safe and timely fashion. In order to help your patient receive quality home care, we will assist in finding alternate staffing. I have forwarded the referral to [facility], and it is declined. I will [...] staffing. I have forwarded the referral to [facility], and it is declined. I will [...] Date Reviewed: 12/25/2023 Reviewed by: Tor Hernandez APRN.TOY ASSEMBLER WOOD - Fully Assessed Reason for Visit: Home [...] (FLONASE) 50 mcg/actuation nasal spray Use 1 Langley in each nostril once daily. Problem List As Of Date 12/25/2023 Noted Resolved Multiple sclerosis (HCC) [G35] 11/15/2019 Chronic insomnia [F51.04] 01/04/2020 AMA (advanced maternal age) primigravida 35+, s*2020 01/11/2021 History of loop electrosurgical excision proced*2020 01/11/2021 Poor growth affecting (more content not included)... Normal [facility] HCG ( test) Ql (U)o n 12-23-2023 Interpretation and review of laboratory results Normal [facility] Preg Test, Ur Negative [facility] Laboratory - Microbiology an d Antimicrobial susceptibilityon 12-23-2023 SARS-CoV-2 (COVID-19) RNA DEIRDRE+probe Ql (Unsp spec) Negative [facility] No Panel Informationon 12-23 FLU A Negative [facility] FLU B Negative [facility] Interpretation and review of laboratory results Normal [facility] Toño 11-28-2023 L Specimen: [id number] Received: 11/28/23 Status: ALLISON See Num: [id number] Spec Type: Surgical Subm Dr: Clarke Hu Tissues: A Endometrium - Curettings (EMC) Procedures: HE/2, Gross/Micro L4 Age/ Patient Sex Location Account Attending Physician Carol Ann Martinez 38/F [facility] [id number] Clarke Hu SPEC NUM: [id number] RECD: 11/28/23 STATUS: ALLISON SEE NUM: [id number] ALLAN: 11/28/[address]: Clarke Hu ENTERED: [...] in one cassette labeled A1. CPT Codes 45670 Specimen: [id number] Received: 11/28/23-1309 Status: ALLISON See Num: [id number] Spec Type: Surgical Subm Dr: Clarke Hu Tissues: A Endometrium - Curettings (EMC) Procedures: HE/2, Jamila/Micro L4 Patient: Carol Ann Martinez [id number] (Continued) Signed (signature on file) Edu Watkins MD 12/01/23 1319 Normal [facility] Social Work (HEMASA) ----- CAROL ANN MARTINEZ ([id number]) 1985 F Date Time Provider Department 10/13/23 [...] (FLONASE) 50 mcg/actuation nasal spray Use 1 Langley in each nostril once daily. Problem List [...] Status:Closed by ALEXANDRA HOGAN on 10/13/23 Normal [facility] CBC W Auto Differential pane l (Bld)on 09-25-2023 Basophils (Bld) [#/Vol] 0.03 10*3/uL <0.11 k/uL [facility] Basophils/100 WBC (Bld) 0.8 % [facility] Differential cell count method Nom (Bld) Auto [facility] Eosinophils (Bld) [#/Vol] 0.07 10*3/uL <0.46 k/uL [facility] Eosinophils/100 WBC (Bld) 1.8 % [facility] Erythrocyte distribution width (RBC) [Ratio] 17.1 % High 11.5 - 15.0 % [facility] Hematocrit (Bld) [Volume fraction] 41.0 % 36.0 - 46.0 % [facility] Hemoglobin (Bld) [Mass/Vol] 12.5 g/dL 11.5 - 15.5 g/dL [facility] Immature granulocytes (Bld) [#/Vol] <0.10 k/uL [facility] Immature granulocytes/100 WBC (Bld) 0.0 % [facility] Lymphocytes (Bld) [#/Vol] 2.63 10*3/uL 1.00 - 4.00 k/uL [facility] Lymphocytes/100 WBC (Bld) 66.4 % [facility] MCH (RBC) [Entitic mass] 23.7 pg Low 26.0 - 34.0 pg [facility] MCHC (RBC) [Mass/Vol] 30.5 g/dL 30.5 - 36.0 g/dL [facility] MCV (RBC) [Entitic vol] 77.7 fL Low 80.0 - 100.0 fL [facility] Monocytes (Bld) [#/Vol] 0.51 10*3/uL <0.87 k/uL [facility] Monocytes/100 WBC (Bld) 12.9 % [facility] Neutrophils (Bld) [#/Vol] 0.72 10*3/uL Low 1.45 - 7.50 k/uL [facility] Neutrophils/100 WBC (Bld) 18.1 % [facility] Nucleated RBC (Bld) [#/Vol] <0.01 k/uL [facility] Nucleated RBC/100 WBC (Bld) [Ratio] 0.0 /100 WBC [facility] Platelet mean volume (Bld) [Entitic vol] [facility] Platelets (Bld) [#/Vol] 179 10*3/uL 150 - 400 k/uL [facility] RBC (Bld) [#/Vol] 5.28 10*6/uL High 3.90 - 5.2 0 m/uL [facility] WBC (Bld) [#/Vol] 3.96 10*3/uL 3.70 - 11. 00 k/uL [facility] Basophils (Bld) [#/Vol] 0.03 10*3/uL Normal <0.11 [facility] Comment on above: Order Comment: Speci men Type: BLOOD SPECIMENOrdering Facility: [facility] Address: [address] [place] [address] Performed By: #### 5 7021-8 ####[facility] LABIA [id number] [place] [address] Basophils/100 WBC (Bld) 0.8 % Normal [facility] Comment on above: Order Comment: Speci men Type: BLOOD SPECIMENOrdering Facility: [facility] Address: [address] [place] [address] Performed By: #### 5 7021-8 ####[facility] LABCLIA [id number] [place] [address] Differential cell count method Nom (Bld) Auto Normal [facility] Comment on above: Order Comment: Speci men Type: BLOOD SPECIMENOrdering Facility: [facility] Address: [address] [place] [address] Performed By: #### 5 7021-8 ####[facility] LABCLIA [id number] [place] [address] Eosinophils (Bld) [#/Vol] 0.07 10*3/uL Normal <0.46 [facility] Comment on above: Order Comment: Speci men Type: BLOOD SPECIMENOrdering Facility: [facility] Address: [address] [place] [address] Performed By: #### 5 7021-8 ####[facility] LABCLIA [id number] [place] [address] Eosinophils/100 WBC (Bld) 1.8 % Normal [facility] Comment on above: Order Comment: Speci men Type: BLOOD SPECIMENOrdering Facility: [facility] Address: [address] [place] [address] Performed By: #### 5 7021-8 ####[facility] LABCLIA [id number] [place] [address] Erythrocyte distribution width (RBC) [Ratio] 17.1 % High 11.5-15.0 [facility] Comment on above: Order Comment: Speci men Type: BLOOD SPECIMENOrdering Facility: [facility] Address: [address] [place] [address] Performed By: #### 5 7021-8 ####[facility] LABCLIA [id number] [place] [address] Hematocrit (Bld) [Volume fraction] 41.0 % Normal 36.0-46.0 [facility] Comment on above: Order Comment: Speci men Type: BLOOD SPECIMENOrdering Facility: [facility] Address: [address] [place] [address] Performed By: #### 5 7021-8 ####[facility] LABCLIA [id number] [place] [address] Hemoglobin (Bld) [Mass/Vol] 12.5 g/dL Normal 11.5-15.5 [facility] Comment on above: Order Comment: Speci men Type: BLOOD SPECIMENOrdering Facility: [facility] Address: [address] [place] [address] Performed By: #### 5 7021-8 ####[facility] LABCLIA [id number] [place] [address] Immature granulocytes (Bld) [#/Vol] 10*3/uL Normal <0.10 [facility] Comment on above: Order Comment: Speci men Type: BLOOD SPECIMENOrdering Facility: [facility] Address: [address] [place] [address] Performed By: #### 5 7021-8 ####[facility] LABCLIA [id number] [place] [address] Immature granulocytes/100 WBC (Bld) 0.0 % Normal [facility] Comment on above: Order Comment: Speci men Type: BLOOD SPECIMENOrdering Facility: [facility] Address: [address] [place] [address] Performed By: #### 5 7021-8 ####[facility] LABIA [id number] [place] [address] Lymphocytes (Bld) [#/Vol] 2.63 10*3/uL Normal 1.00-4.00 [facility] Comment on above: Order Comment: Speci men Type: BLOOD SPECIMENOrdering Facility: [facility] Address: [address] [place] [address] Performed By: #### 5 7021-8 ####[facility] LABCLIA [id number] [place] [address] Lymphocytes/100 WBC (Bld) 66.4 % Normal [facility] Comment on above: Order Comment: Speci men Type: BLOOD SPECIMENOrdering Facility: [facility] Address: [address] [place] [address] Performed By: #### 5 7021-8 ####[facility] LABIA [id number] [place] [address] MCH (RBC) [Entitic mass] 23.7 pg Low 26.0-34.0 [facility] Comment on above: Order Comment: Speci men Type: BLOOD SPECIMENOrdering Facility: [facility] Address: [address] [place] [address] Performed By: #### 5 7021-8 ####[facility] LABCLIA [id number] [place] [address] MCHC (RBC) [Mass/Vol] 30.5 g/dL Normal 30.5-36.0 [facility] Comment on above: Order Comment: Speci men Type: BLOOD SPECIMENOrdering Facility: [facility] Address: [address] [place] [address] Performed By: #### 5 7021-8 ####[facility] LABCLIA [id number] [place] [address] MCV (RBC) [Entitic vol] 77.7 fL Low 80.0-100.0 [facility] Comment on above: Order Comment: Speci men Type: BLOOD SPECIMENOrdering Facility: [facility] Address: [address] [place] [address] Performed By: #### 5 7021-8 ####[facility] LABCLIA [id number] [place] [address] Monocytes (Bld) [#/Vol] 0.51 10*3/uL Normal <0.87 [facility] Comment on above: Order Comment: Speci men Type: BLOOD SPECIMENOrdering Facility: [facility] Address: [address] [place] [address] Performed By: #### 5 7021-8 ####[facility] LABCLIA [id number] [place] [address] Monocytes/100 WBC (Bld) 12.9 % Normal [facility] Comment on above: Order Comment: Speci men Type: BLOOD SPECIMENOrdering Facility: [facility] Address: [address] [place] [address] Performed By: #### 5 7021-8 ####[facility] LABCLIA [id number] [place] [address] Neutrophils (Bld) [#/Vol] 0.72 10*3/uL Low 1.45-7.50 [facility] Comment on above: Order Comment: Speci men Type: BLOOD SPECIMENOrdering Facility: [facility] Address: [address] [place] [address] Performed By: #### 5 7021-8 ####[facility] LABCLIA [id number] [place] [address] Neutrophils/100 WBC (Bld) 18.1 % Normal [facility] Comment on above: Order Comment: Speci men Type: BLOOD SPECIMENOrdering Facility: [facility] Address: [address] [place] [address] Performed By: #### 5 7021-8 ####[facility] LABCLIA [id number] [place] [address] Nucleated RBC (Bld) [#/Vol] 10*3/uL Normal <0.01 [facility] Comment on above: Order Comment: Speci men Type: BLOOD SPECIMENOrdering Facility: [facility] Address: [address] [place] [address] Performed By: #### 5 7021-8 ####[facility] LABCLIA [id number] [place] [address] Nucleated RBC/100 WBC (Bld) [Ratio] 0.0 /100 WBC Normal [facility] Comment on above: Order Comment: Speci men Type: BLOOD SPECIMENOrdering Facility: [facility] Address: [address] [place] [address] Performed By: #### 5 7021-8 ####[facility] LABCLIA [id number] [place] [address] Platelet mean volume (Bld) [Entitic vol] Normal [facility] Comment on above: Order Comment: Speci men Type: BLOOD SPECIMENOrdering Facility: [facility] Address: [address] [place] [address] Result Comment: Unab le to Report. Performed By: #### 5 7021-8 ####[facility] LABCLIA [id number] [place] [address] Platelets (Bld) [#/Vol] 179 10*3/uL Normal 150-400 [facility] Comment on above: Order Comment: Speci men Type: BLOOD SPECIMENOrdering Facility: [facility] Address: [address] [place] [address] Result Comment: Resu lts checked and verified.No clot detected. Performed By: #### 5 7021-8 ####[facility] LABCLIA [id number] [place] [address] RBC (Bld) [#/Vol] 5.28 10*6/uL High 3.90-5.20 [facility] Comment on above: Order Comment: Speci men Type: BLOOD SPECIMENOrdering Facility: [facility] Address: [address] [place] [address] Performed By: #### 5 7021-8 ####[facility] LABCLIA [id number] [place] [address] WBC (Bld) [#/Vol] 3.96 10*3/uL Normal 3.70-11.00 [facility] Comment on above: Order Comment: Speci men Type: BLOOD SPECIMENOrdering Facility: [facility] Address: [address] [place] [address] Performed By: #### 5 7021-8 ####[facility] LABCLIA [id number] [place] [address] CD19 ABSOLUTE COUNTon 2022 CD3-CD19+ cells (Bld) [#/Vol] 0 cells/uL Low 75-660 [facility] Comment on above: Order Comment: Speci men Type: BLOOD SPECIMENOrdering Facility: [facility] Address: [address] [place] [address] Performed By: #### A BS19 ####[facility] LABCLIA [id number] [address] [place] CD3-CD19+ cells/100 cells (Bld) 0 % Low 5-22 [facility] Comment on above: Order Comment: Speci men Type: BLOOD SPECIMENOrdering Facility: [facility] Address: [address] [place] [address] Performed By: #### A BS19 ####[facility] LABCLIA [id number] [address] [place] Lymphocytes/100 WBC FC (Bld) Normal [facility] Comment on above: Order Comment: Speci men Type: BLOOD SPECIMENOrdering Facility: [facility] Address: [address] [place] [address] Performed By: #### A BS19 ####[facility] LABCLIA [id number] [address] OF [facility] Christiano 09-25-2023 CNPN Telephone (HEMTSA) ----- CAROL ANN MARTINEZ F ([id number]) 1985 F Date Time Provider Department 09/25/[address] During your visit today, we recorded the following information about you: Milagros Espino RN 09/25/2023 10:40 AM Signed Carol Ann is in our [place] clinic for her Ocrevus today. I just wanted to point out her ANC has dropped to 0.72 from today's cbc and this doesn't look normal for her. Patient feels fine with no complaints and no fever. Thank you, Milagros Espino RN Allergies As of Date: 09/25/2023 [...] [D70.2] Order(s):CBC + DIFF [SQCBCDIF] Order #: [id number] FUTURE Prescriptions as of 09/29/2023 - metroNIDAZOLE [...] (FLONASE) 50 mcg/actuation nasal spray Use 1 Langley in each nostril once daily. Problem List [...] deficit [R41.841] 07/22/2022 07/17/2023 Encounter Status:Closed by MILAGROS ESPINO on 09/29/23 Normal [facility] Comprehensive metabolic 2000 panelon 09-25-2023 Albumin [Mass/Vol] 4.5 g/dL 3.9 - 4.9 g/dL [facility] ALP [Catalytic activity/Vol] 58 U/L 34 - 123 U/L [facility] ALT [Catalytic activity/Vol] 11 U/L 7 - 38 U/L [facility] Anion gap [Moles/Vol] 9 mmol/L 9 - 18 mmol/L [facility] AST [Catalytic activity/Vol] 17 U/L 13 - 35 U/L [facility] Bilirubin [Mass/Vol] 0.5 mg/dL 0.2 - 1 .3 mg/dL [facility] Calcium [Mass/Vol] 9.5 mg/dL 8.5 - 10. 2 mg/dL [facility] Chloride [Moles/Vol] 106 mmol/L High 97 - 10 5 mmol/L [facility] CO2 [Moles/Vol] 26 mmol/L 22 - 30 mmol/L [facility] Creatinine [Mass/Vol] 0.95 mg/dL 0.58 - 0.96 mg/dL [facility] Estimated Glomerular Filtration Rate 79 mL/min/1.73m >=60 mL/min/1.73m [facility] Glucose [Mass/Vol] 89 mg/dL 74 - 99 mg/dL [facility] Potassium [Moles/Vol] 3.6 mmol/L Low 3.7 - 5.1 mmol/L [facility] Protein [Mass/Vol] 7.4 g/dL 6.3 - 8.0 g/dL [facility] Sodium [Moles/Vol] 141 mmol/L 136 - 144 mmol/L [facility] Urea nitrogen [Mass/Vol] 14 mg/dL 7 - 21 mg/dL [facility] Albumin [Mass/Vol] 4.5 g/dL Normal 3.9-4.[address] [facility] Comment on above: Order Comment: Speci men Type: BLOOD SPECIMENOrdering Facility: [facility] Address: [address] [place] [address] Performed By: #### 2 4323-8 ####[facility] LABCLIA [id number] [place] [address] ALP [Catalytic activity/Vol] 58 U/L Normal 34-123 [facility] Comment on above: Order Comment: Speci men Type: BLOOD SPECIMENOrdering Facility: [facility] Address: [address] [place] [address] Performed By: #### 2 4323-8 ####[facility] LABCLIA [id number] [place] [address] ALT [Catalytic activity/Vol] 11 U/L Normal 7-38 [facility] Comment on above: Order Comment: Speci men Type: BLOOD SPECIMENOrdering Facility: [facility] Address: [address] [place] [address] Performed By: #### 2 4323-8 ####[facility] LABCLIA [id number] [place] [address] Anion gap [Moles/Vol] 9 mmol/L Normal 9-18 [facility] Comment on above: Order Comment: Speci men Type: BLOOD SPECIMENOrdering Facility: [facility] Address: [address] [place] [address] Performed By: #### 2 4323-8 ####[facility] LABCLIA [id number] [place] [address] AST [Catalytic activity/Vol] 17 U/L Normal 13-35 [facility] [facility] [place] Comment on above: Order Comment: Speci men Type: BLOOD SPECIMENOrdering Facility: [facility] Address: [address] [place] [address] Performed By: #### 2 4323-8 ####[facility] LABCLIA [id number] [place] [address] Bilirubin [Mass/Vol] 0.5 mg/dL Normal 0.2-1.3 [facility] Comment on above: Order Comment: Speci men Type: BLOOD SPECIMENOrdering Facility: [facility] Address: [address] [place] [address] Performed By: #### 2 4323-8 ####[facility] LABCLIA [id number] [place] [address] Calcium [Mass/Vol] 9.5 mg/dL Normal 8.5-10.[address] [facility] Comment on above: Order Comment: Speci men Type: BLOOD SPECIMENOrdering Facility: [facility] Address: [address] [place] [address] Performed By: #### 2 4323-8 ####[facility] LABCLIA [id number] [place] [address] Chloride [Moles/Vol] 106 mmol/L High 97-105 [facility] Comment on above: Order Comment: Speci men Type: BLOOD SPECIMENOrdering Facility: [facility] Address: [address] [place] [address] Performed By: #### 2 4323-8 ####[facility] LABCLIA [id number] [place] [address] CO2 [Moles/Vol] 26 mmol/L Normal 22-30 [facility] [place] Comment on above: Order Comment: Speci men Type: BLOOD SPECIMENOrdering Facility: [facility] Address: [address] [place] [address] Performed By: #### 2 4323-8 ####[facility] LABCLIA [id number] [place] [address] Creatinine [Mass/Vol] 0.95 mg/dL Normal 0.58-0.96 [facility] Comment on above: Order Comment: Speci men Type: BLOOD SPECIMENOrdering Facility: [facility] Address: [address] [place] [address] Performed By: #### 2 4323-8 ####[facility] LABCLIA [id number] [place] [address] Creatinine and Glomerular filtration rate.predicted panel (S/P/Bld) 79 mL/min/1.73m??? Normal >=60 [facility] [place] Comment on above: Order Comment: Rylee chauhan Type: BLOOD SPECIMENOrdering Facility: [facility] Address: [address] [place] [address] Result Comment: Priscila mated Glomerular Filtration Rate [...] actual GFR. Performed By: #### 2 4323-8 ####[facility] LABCLIA [id number] [place] [address] Glucose [Mass/Vol] 89 mg/dL Normal 74-[address] [facility] Comment on above: Order Comment: Rylee chauhan Type: BLOOD SPECIMENOrdering Facility: [facility] Address: [address] [place] [address] Result Comment: The [employer] Diabetes Association (ADA) provides guidance for cutoff [...] Standards of Medical Care in Diabetes 2016, [employer]. Diabetes Care. 2016.39(Suppl 1). Performed By: #### 2 4323-8 ####[facility] LABCLIA [id number] [place] [address] Potassium [Moles/Vol] 3.6 mmol/L Low 3.7-5.1 [facility] Comment on above: Order Comment: Speci men Type: BLOOD SPECIMENOrdering Facility: [facility] Address: [address] [place] [address] Performed By: #### 2 4323-8 ####[facility] LABCLIA [id number] [place] [address] Protein [Mass/Vol] 7.4 g/dL Normal 6.3-8.[address] [facility] Comment on above: Order Comment: Speci men Type: BLOOD SPECIMENOrdering Facility: [facility] Address: [address] [place] [address] Performed By: #### 2 4323-8 ####[facility] LABCLIA [id number] [place] [address] Sodium [Moles/Vol] 141 mmol/L Normal 136-[address] [facility] Comment on above: Order Comment: Speci men Type: BLOOD SPECIMENOrdering Facility: [facility] Address: [address] [place] [address] Performed By: #### 2 4323-8 ####[facility] LABCLIA [id number] [place] [address] Urea nitrogen [Mass/Vol] 14 mg/dL Normal 7-21 [facility] [place] Comment on above: Order Comment: Speci men Type: BLOOD SPECIMENOrdering Facility: [facility] Address: [address] [place] [address] Performed By: #### 2 4323-8 ####[facility] LABCLIA [id number] [place] [address] HBV core Ab Ser Qlon 023 HBV core Ab Ql (S) Negative Normal Negative [facility] Comment on above: Order Comment: Speci men Type: BLOOD SPECIMENOrdering Facility: [facility] Address: [address] [place] [address] Result Comment: No e vidence of current or past infection with Hepatitis B virus. Should recent infection be suspected, repeat testing may be considered 3-4 weeks after this draw. Performed By: #### 5 195-3, 46874-8, 15320-7 ####[facility] LABCLIA [id number] [place] [address] [place] HBV surface Ab Ql (S)on 09-10 HBV surface Ab Qn (S) 528.76 mIU/mL [facility] HBV surface Ab Qn (S) 528.76 mIU/mL Normal [facility] [place] Comment on above: Order Comment: Speci men Type: BLOOD SPECIMENOrdering Facility: [facility] Address: [address] [place] [address] Result Comment: <8 m IU/mL: No serological evidence of immunity to Hepatitis B Virus. >/= 8 to <12 mIU/mL: No serological evidence of immunity to Hepatitis B Virus. >/= 12 mIU/mL: Consistent with serological evidence of immunity to Hepatitis B Virus. Performed By: #### 5 195-3, 23469-0, 92864-3 ####[facility] LABCLIA [id number] [address] [place] HBV surface Ab Ser Qlon 09-10 HBV surface Ab Ql (S) Positive Normal [facility] Comment on above: Order Comment: Speci men Type: BLOOD SPECIMENOrdering Facility: [facility] Address: [address] [place] [address] Result Comment: Cons istent with serological evidence of immunity to Hepatitis B Virus. Performed By: #### 5 195-3, 90783-6, 88780-5 ####[facility] LABCLIA [id number] [place] [address] [place] HBV surface Ag Ser Qlon 09-10 HBV surface Ag Ql (S) Negative Normal Negative [facility] Comment on above: Order Comment: Speci men Type: BLOOD SPECIMENOrdering Facility: [facility] Address: [address] [place] [address] Performed By: #### 5 195-3, 61610-7, 80771-5 ####[facility] LABCLIA [id number] [place] [address] [place] HCV Ab Ser Qlon 09-25-2023 HCV Ab Ql (S) Negative Normal Negative [facility] [place] Comment on above: Order Comment: Speci men Type: BLOOD SPECIMENOrdering Facility: [facility] Address: [address] [place] [address] Result Comment: The result suggests no evidence of active infection with Hepatitis C virus. Should recent infection be suspected, repeat testing may be considered 4-6 weeks after this draw. Performed By: #### 1 6128-1 ####[facility] LABCLIA [id number] [place] [address] [place] HEP B CORE AB TOTALon 2022 HBV core Ab Ql (S) Negative Negative [facility] HEP B SURF ABon 09-25-2023 HBV surface Ab Ql (S) Positive [facility] HEP B SURF AG SCRNon 023 HBV surface Ag Ql (S) Negative Negative [facility] HEPATITIS C ANTIBODY IA WITH CONFIRMATIONon 09-25-2023 HCV Ab Ql (S) Negative Negative [facility] B-HCG SerPl-aCncon 3 HCG.beta subunit Qn m[IU]/mL Normal <5.0 [facility] Comment on above: Order Comment: Speci men Type: BLOOD SPECIMENOrdering Facility: [facility] Address: [address] [place] [address] Result Comment: Nega tive Performed By: #### 2 1198-7 ####[facility] LABCLIA [id number] [place] [address] [place] IgG SerPl-mCncon 09-24-2023 IgG [Mass/Vol] 1281 mg/dL Normal 700-1600 [facility] [place] Comment on above: Order Comment: Speci men Type: BLOOD SPECIMENOrdering Facility: [facility] Address: [address] [place] [address] Performed By: #### 2 472-9, 2465-3 ####[facility] LABCLIA [id number] [place] [address] [place] IgM SerPl-mCncon 09-24-2023 IgM [Mass/Vol] 128 mg/dL Normal 40-230 [facility] [place] Comment on above: Order Comment: Speci men Type: BLOOD SPECIMENOrdering Facility: [facility] Address: [address] [place] [address] Performed By: #### 2 472-9, 2465-3 ####[facility] [id number] [address] [place] [facility]NPNon [facility] ----- CAROL ANN MARTINEZ F ([id number]) 1985 F Date Time Provider Department 08/27/[address] [facility] During your visit today, we recorded [...] Primary Visit Diagnosis:Uterine polyp [N84.0] Order(s):CONSULT TO [facility] [9021] Order #: [id number]: 1 FUTURE Prescriptions as of 08/27/2023 - [...] (FLONASE) 50 mcg/actuation nasal spray Use 1 Langley in each nostril once daily. Problem List [...] Status:Closed by JANICE L[address] on 08/27/23 Normal [facility] [place] PELVIC US WHIon 08-26-2023 [facility] Trichmonas Vaginalis Screen (EIA)on 01-24-2023 Trichomonas Vaginalis Screen (EIA) Negative Normal [facility] Comment on above: Performed By: #### E TRIC #### [facility] [address] [place] [address] Wet Prep-Medical Purposes On berry 01-24-2023 Wet Prep Clue Cellls 1+ Abnormal [facility] Comment on above: Performed By: #### W ETPR #### [facility] [address] [place] [address] Wet Prep Trichomonas See EIA Normal [facility] Comment on above: Performed By: #### W ETPR #### [facility] [address] [place] [address] Wet Prep Yeast None Seen Normal [facility] Comment on above: Performed By: #### W ETPR #### [facility] [address] [place] [address] CBC W Auto Differential pane l (Bld)on 01-17-2023 Basophils (Bld) [#/Vol] 0.07 10*3/uL <0.11 k/uL [facility] Basophils/100 WBC (Bld) 1.0 % [facility] Differential cell count method Nom (Bld) Auto [facility] Eosinophils (Bld) [#/Vol] 0.07 10*3/uL <0.46 k/uL [facility] Eosinophils/100 WBC (Bld) 1.0 % [facility] Erythrocyte distribution width (RBC) [Ratio] 15.5 % High 11.5 - 15.0 % [facility] Hematocrit (Bld) [Volume fraction] 31.5 % Low 36.0 - 46.0 % [facility] Hemoglobin (Bld) [Mass/Vol] 9.4 g/dL Low 11.5 - 15.5 g/dL [facility] Immature granulocytes (Bld) [#/Vol] <0.10 k/uL [facility] Immature granulocytes/100 WBC (Bld) 0.3 % [facility] Lymphocytes (Bld) [#/Vol] 2.30 10*3/uL 1.00 - 4.00 k/uL [facility] Lymphocytes/100 WBC (Bld) 32.7 % [facility] MCH (RBC) [Entitic mass] 22.2 pg Low 26.0 - 34.0 pg [facility] MCHC (RBC) [Mass/Vol] 29.8 g/dL Low 30.5 - 36.0 g/dL [facility] MCV (RBC) [Entitic vol] 74.3 fL Low 80.0 - 100.0 fL [facility] Monocytes (Bld) [#/Vol] 0.51 10*3/uL <0.87 k/uL [facility] Monocytes/100 WBC (Bld) 7.2 % [facility] Neutrophils (Bld) [#/Vol] 4.07 10*3/uL 1.45 - 7.50 k/uL [facility] Neutrophils/100 WBC (Bld) 57.8 % [facility] Nucleated RBC (Bld) [#/Vol] <0.01 k/uL [facility] Nucleated RBC/100 WBC (Bld) [Ratio] 0.0 /100 WBC [facility] Platelet mean volume (Bld) [Entitic vol] 13.6 fL High 9.0 - 12.7 fL [facility] Platelets (Bld) [#/Vol] 304 10*3/uL 150 - 400 k/uL [facility] RBC (Bld) [#/Vol] 4.24 10*6/uL 3.90 - 5.2 0 m/uL [facility] WBC (Bld) [#/Vol] 7.04 10*3/uL 3.70 - 11. 00 k/uL [facility] Comprehensive metabolic 2000 panelon 01-17-2023 Albumin [Mass/Vol] 4.5 g/dL 3.9 - 4.9 g/dL [facility] ALP [Catalytic activity/Vol] 62 U/L 34 - 123 U/L [facility] ALT [Catalytic activity/Vol] 11 U/L 7 - 38 U/L [facility] Anion gap [Moles/Vol] 9 mmol/L 9 - 18 mmol/L [facility] AST [Catalytic activity/Vol] 18 U/L 13 - 35 U/L [facility] Bilirubin [Mass/Vol] 0.3 mg/dL 0.2 - 1 .3 mg/dL [facility] Calcium [Mass/Vol] 9.8 mg/dL 8.5 - 10. 2 mg/dL [facility] Chloride [Moles/Vol] 104 mmol/L 97 - 10 5 mmol/L [facility] CO2 [Moles/Vol] 26 mmol/L 22 - 30 mmol/L [facility] Creatinine [Mass/Vol] 0.79 mg/dL 0.58 - 0.96 mg/dL [facility] Estimated Glomerular Filtration Rate 99 mL/min/1.73m >=60 mL/min/1.73m [facility] Glucose [Mass/Vol] 69 mg/dL Low 74 - 99 mg/dL [facility] Potassium [Moles/Vol] 4.2 mmol/L 3.7 - 5.1 mmol/L [facility] Protein [Mass/Vol] 7.9 g/dL 6.3 - 8.0 g/dL [facility] Sodium [Moles/Vol] 139 mmol/L 136 - 144 mmol/L [facility] Urea nitrogen [Mass/Vol] 11 mg/dL 7 - 21 mg/dL [facility] MR Brain WO and W contrast I Von 01-02-2023 * * *Final Report* * * DATE [...] Improvement: None. New Enhancing Lesions: None T2 [place] of Disease: Mild. Parenchymal Volume Loss: None. [...] history of multiple sclerosis. Cord T2 Plaque [place]: Moderate New T2 Lesions: None Interval Cord [...] by greater than or equal to 2mm). DIVISION OF RADIOLOGY Provider, [facility] - 01/02/2023 * * *Final Report* * * DATE [...] Improvement: None. New Enhancing Lesions: None T2 [place] of Disease: Mild. Parenchymal Volume Loss: None. [...] history of multiple sclerosis. Cord T2 Plaque [place]: Moderate New T2 Lesions: None Interval Cord [...] by greater than or equal to 2mm). IMPRESSION IMPRESSION: Multiple intracranial white matter lesions compatible [...] vertebrae with counting from the craniocervical junction. Fisher Eel Spear: PSCB Transcribe Date/Time: Jan 02 2023 12:13P Dictated by : JEANIE MAKI MD This examination was interpreted and the report reviewed and electronically signed by: JEANIE MAKI MD on Jan 02 2023 12:23PM [facility] MR Cervical spine WO and W c ontrast Joe 01-02-2023 * * *Final Report* * * DATE [...] Improvement: None. New Enhancing Lesions: None T2 [place] of Disease: Mild. Parenchymal Volume Loss: None. [...] history of multiple sclerosis. Cord T2 Plaque [place]: Moderate New T2 Lesions: None Interval Cord [...] by greater than or equal to 2mm). DIVISION OF RADIOLOGY Provider, [facility] - 01/02/2023 * * *Final Report* * * DATE OF EXAM: Jan 02 2023 11:24AM [facility] 0[facility] - MRI CERVICAL SPINE WO/W IVCON [...] Improvement: None. New Enhancing Lesions: None T2 [place] of Disease: Mild. Parenchymal Volume Loss: None. [...] history of multiple sclerosis. Cord T2 Plaque [place]: Moderate New T2 Lesions: None Interval Cord [...] by greater than or equal to 2mm). IMPRESSION IMPRESSION: Multiple intracranial white matter lesions compatible [...] vertebrae with counting from the craniocervical junction. Fisher Eel Spear: Thumb Reading Transcribe Date/Time: Jan 02 2023 12:13P Dictated by : JEANIE MAKI MD This examination was interpreted and the report reviewed and electronically signed by: JEANIE MAKI MD on Jan 02 2023 12:23PM EST [facility] No Panel Informationon 01-02 IMPRESSION: Multiple intracranial white matter lesions compatible [...] vertebrae with counting from the craniocervical junction. Fisher Eel Spear: Thumb Reading Transcribe Date/Time: Jan 02 2023 12:13P Dictated by : JEANIE MAKI MD This examination was interpreted and the report reviewed and electronically signed by: JEANIE MAKI MD on Jan 02 2023 12:23PM EST DIVISION OF RADIOLOGY Brain Enhancing Lesions None [facility] Brain Interval Improvement None [facility] Brain New T2 Lesions None Site [facility] Brain Other Significant MRI Findings None. [facility] Brain Parenchymal Volume Loss None [facility] Brain T2 [place] of Disease Mild [facility] Cervical spine enhancing lesions None [facility] Cervical Spine New T2 Lesions None [facility] Cervical Spine T2 [place] of Disease Moderate [facility] Radiology Study observation (narrative) [facility] No Panel InformationOrdered By: Ccf Provider on 01-02-2023 [facility] C.trachomatis N.gonorrhoeae DNAon 12-10-2022 C. trachomatis DNA DEIRDRE+probe Ql (Unsp spec) Negative Normal Negative [facility] N. gonorrhoeae DNA DEIRDRE+probe Ql (Unsp spec) Negative Normal Negative [facility] Trichmonas Vaginalis Screen (EIA)on 12-06-2022 Trichomonas Vaginalis Screen (EIA) Negative Normal [facility] Comment on above: Performed By: #### E TRIC #### [facility] [address] [place] [address] Wet Prep-Medical Purposes On berry 12-06-2022 Wet Prep Clue Cellls 1+ Abnormal [facility] Comment on above: Performed By: #### W ETPR #### [facility] [address] [place] [address] Wet Prep Trichomonas See EIA Normal [facility] Comment on above: Performed By: #### W ETPR #### [facility] [address] [place] [address] Wet Prep Yeast None Seen Normal [facility] Comment on above: Performed By: #### W ETPR #### [facility] [address] [place] [address] Albumin [Mass/volume] in Ser um or PlasmaOrdered By: Vishal Agarwal on 10-27-2022 Albumin [Mass/Vol] 4.1 g/dL 3.2-5.5 [facility] Basophils Auto (Bld) [#/Vol] Ordered By: Vishal Agarwal on 10-27-2022 Basophils (Bld) [#/Vol] 0.0 10*3/uL 0.0-0.2 [facility] Basophils/100 WBC Auto (Bld) Ordered By: Vishal Agarwal on 10-27-2022 Basophils/100 WBC (Bld) 0.4 % . [facility] COVID CepheidOrdered By: Brook Agarwal on 10-27-2022 SARS-CoV-2 (COVID-19) Ab IA Ql Positive Negative [facility] Comment on above: This is a duplicate CepKingspoke Xpert Xpress CoV-2/Flu/RSV Plus RNA by RT-PCR result to be used for statistical tracking purpose only. SARS-CoV-2 (COVID-19) RNA DEIRDRE+probe Ql (Unsp spec) [facility] Creatinine and Glomerular fi ltration rate.predicted panel (S/P/Bld)Ordered By: Vishal Agarwal on 10-27-2022 Creatinine [Mass/Vol] 0.96 mg/dL 0.44-1.03 [facility] Eosinophils Auto (Bld) [#/Vo l]Ordered By: Vishal Agarwal on 10-27-2022 Eosinophils (Bld) [#/Vol] 0.0 10*3/uL 0.0-0.45 [facility] Eosinophils/100 WBC Auto (Bl d)Ordered By: Vishal Agarwal on 10-27-2022 Eosinophils/100 WBC (Bld) 0.0 % . [facility] Erythrocyte distribution wid th Auto (RBC) [Ratio]Ordered By: Vishal Agarwal on 10-27-2022 Erythrocyte distribution width (RBC) [Ratio] 17.4 % 11.9-15.3 [facility] Estimated glomerular filtrat ion rate (GFR) non- AmericanOrdered By: Vishal Agarwal on 10-27-2022 GFR/1.73 sq M.predicted among non-blacks MDRD (S/P/Bld) [Vol rate/Area] > 60 mL/Min [facility] Globulin Calc (S) [Mass/Vol] Ordered By: Vishal Agarwal on 10-27-2022 Globulin (S) [Mass/Vol] 3.5 g/dL [facility] Hematocrit Auto (Bld) [Volum e fraction]Ordered By: Vishal Agarwal on 10-27-2022 Hematocrit (Bld) [Volume fraction] 38.7 % 34.0-46.4 [facility] Hemoglobin [Mass/volume] in BloodOrdered By: Vishal Agarwal on 10-27-2022 Hemoglobin (Bld) [Mass/Vol] 12.1 g/dL 11.8-15.4 [facility] Leukocytes [#/volume] correc che for nucleated erythrocytes in Blood by Automated counOrdered By: Vishal Agarwal on 10-27-2022 WBC corrected for nucl RBC Auto (Bld) [#/Vol] 4.5 10*3/uL 3.8-11.6 [facility] Lymphocytes Auto (Bld) [#/Vo l]Ordered By: Vishal Agarwal on 10-27-2022 Lymphocytes (Bld) [#/Vol] 0.5 10*3/uL 1.00-4.8 [facility] Lymphocytes/100 WBC Auto (Bl d)Ordered By: Vishal Agarwal on 10-27-2022 Lymphocytes/100 WBC (Bld) 10.8 % . [facility] MCH Auto (RBC) [Entitic mass ]Ordered By: Vishal Agarwal on 10-27-2022 MCH (RBC) [Entitic mass] 23.7 pg 24.7-34.3 [facility] MCHC Auto (RBC) [Mass/Vol]Or dered By: Vishal Agarwal on 10-27-2022 MCHC (RBC) [Mass/Vol] 31.2 g/dL 32.0-35.0 [facility] MCV Auto (RBC) [Entitic vol] Ordered By: Vishal Agarwal on 10-27-2022 MCV (RBC) [Entitic vol] 76.0 fL 80-100 [facility] Monocyte distribution width [Entitic volume] in Blood by AutomatedOrdered By: Vishal Agarwal on 10-27-2022 Monocyte distribution width Auto (Bld) [Entitic vol] 24.86 % 0.00-20.00 [facility] Comment on above: For adults in ED, MD W > 20.0 may be associated with a higher risk of sepsis during the first 12 hrs of hospital admission Monocytes Auto (Bld) [#/Vol] Ordered By: Vishal Agarwal on 10-27-2022 Monocytes (Bld) [#/Vol] 0.8 10*3/uL 0.0-0.8 [facility] Monocytes/100 WBC Auto (Bld) Ordered By: Vishal Agarwal on 10-27-2022 Monocytes/100 WBC (Bld) 16.8 % . [facility] Neutrophils Auto (Bld) [#/Vo l]Ordered By: Vishal Agarwal on 10-27-2022 Neutrophils (Bld) [#/Vol] 3.2 10*3/uL 1.8-7.7 [facility] Neutrophils/100 WBC Auto (Bl d)Ordered By: Vishal Agarwal on 10-27-2022 Neutrophils/100 WBC (Bld) 72.0 % . [facility] No Panel InformationOrdered By: Vishal Agarwal on 10-27-2022 Estimated GFR () > 60 mL/Min [facility] Comment on above: GFR estimated refere nce range: According to KDOQI guidelines, <60 ml/min/1.73m2 is sufficient to diagnose a patient with chronic kidney disease. Pharmacy Creatinine Clearance (Chem 75.11 [facility] Nucleated erythrocytes [Pres ence] in Blood by Automated countOrdered By: Vishal Agarwal on 10-27-2022 Nucleated RBC Auto Ql (Bld) 0.1 /100{WBC} 0-0.5 [facility] Platelet mean volume Auto (B ld) [Entitic vol]Ordered By: Vishal Agarwal on 10-27-2022 Platelet mean volume (Bld) [Entitic vol] 11.0 fL 6.3-10.7 [facility] Platelets Auto (Bld) [#/Vol] Ordered By: Vishal Agarwal on 10-27-2022 Platelets (Bld) [#/Vol] 148 10*3/uL 150-450 [facility] Protein [Mass/volume] in Ser um or PlasmaOrdered By: Vishal Agarwal on 10-27-2022 Protein [Mass/Vol] 7.6 g/dL 6.1-7.9 [facility] RBC Auto (Bld) [#/Vol]Ordere d By: Vishal Agarwal on 10-27-2022 RBC (Bld) [#/Vol] 5.10 10*6/uL 3.60-5.00 [facility] Serum or plasma alanine gannon otransferase measurement without P-5'-P (enzymatic activiOrdered By: Vishal Agarwal on 10-27-2022 ALT No additional P-5'-P [Catalytic activity/Vol] 18 U/L 10-60 [facility] Serum or plasma albumin/glob ulin mass ratioOrdered By: Vishal Agarwal on 10-27-2022 Albumin/Globulin [Mass ratio] 1.2 {ratio} [facility] Serum or plasma alkaline bull sphatase measurement (enzymatic activity/volume)Ordered By: Vishal Agarwal on 10-27-2022 ALP [Catalytic activity/Vol] 43 U/L 32-92 [facility] Serum or plasma anion gap de terminationOrdered By: Vishal Agarwal on 10-27-2022 Anion gap [Moles/Vol] 13.5 mmol/L 6.0-15.0 [facility] [place] Serum or plasma aspartate am inotransferase measurement (enzymatic activity/volume)Ordered By: Vishal Agarwal on 10-27-2022 AST [Catalytic activity/Vol] 24 U/L 10-42 [facility] Serum or plasma calcium scotty urement (mass/volume)Ordered By: Vishal Agarwal on 10-27-2022 Calcium [Mass/Vol] 9.2 mg/dL 8.2-10.2 [facility] Serum or plasma chloride suzie surement (moles/volume)Ordered By: Vishal Agarwal on 10-27-2022 Chloride [Moles/Vol] 101 mmol/L 95-114 [facility] Serum or plasma glucose scotty urement (mass/volume)Ordered By: Vishal Agarwal on 10-27-2022 Glucose [Mass/Vol] 102 mg/dL 70-100 [facility] Comment on above: ADA recommended refe rence rangeRandom Glucose Reference Range is dependent on time and content of last meal. Glucose of more than 200 mg/dL in a nonstressed, ambulatory subject supports the diagnosis of Diabetes Mellitus. Serum or plasma potassium me asurement (moles/volume)Ordered By: Vishal Agarwal on 10-27-2022 Potassium [Moles/Vol] 3.7 mmol/L 3.5-5.1 [facility] Serum or plasma sodium measu rement (moles/volume)Ordered By: Vishal Amezcuaanson on 10-27-2022 Sodium [Moles/Vol] 134 mmol/L 136-146 [facility] Serum or plasma total biliru bin measurement (mass/volume)Ordered By: Vishal Any on 10-27-2022 Bilirubin [Mass/Vol] 0.8 mg/dL 0.3-1.2 [facility] Serum or plasma total carbon dioxide measurement (moles/volume)Ordered By: Vishal Any on 10-27-2022 CO2 [Moles/Vol] 23.2 mmol/L 22.0-30.0 [facility] Serum or plasma urea nitroge n measurement (mass/volume)Ordered By: Vishal Any on 10-27-2022 Urea nitrogen [Mass/Vol] 10 mg/dL 9-23 [facility] WBC Auto (Bld) [#/Vol]Ordere d By: Vishal Any on 10-27-2022 WBC (Bld) [#/Vol] 4.5 10*3/uL 3.8-11.6 [facility] HBV surface Ab IA Ql (S)on 1 11-27-2021 HBV surface Ag Ql (S) Negative Negative [facility] HEP B CORE AB TOTALon 2021 HBV core Ab Ql (S) Negative Negative [facility] HEP B SURF AB QUALon 022 HBV surface Ab Ql (S) Positive Abnormal Negative [facility] HEP C AB IA W/CONF SCRNon HCV Ab Ql (S) Negative Negative [facility] MR Brain WO and W contrast I Von 07-23-2022 * * *Final Report* * * DATE OF EXAM: Jul 23 2022 10:56AM [facility] 0295 - MRI BRAIN WO/W IVCON / PROCEDURE REASON: Multiple sclerosis (HCC) * * * * Physician Interpretation * * * * EXAMINATION: MRI BRAIN WO/W IVCON, MRI CERVICAL SPINE WO/W IVCON, MRI THORACIC SPINE WO/W IVCON HISTORY: Multiple sclerosis. Routine follow-up TECHNIQUE: Brain MRI with demyelinating disease protocol with and without gadolinium. Routine cervical spine and thoracic protocol with and without gadolinium. MQ: [id number] Contrast: 12 mL Dotarem IV COMPARISON: 02/24/2021 MRI brain RESULT: MR BRAIN: Parenchymal Findings: There are multiple foci of hyperintensity on FLAIR and T2 within the white matter, compatible with the clinical diagnosis of multiple sclerosis. New T2 Lesions: None Site(s) of New/Larger T2 Lesion(s): Not applicable Interval Improvement: None. New Enhancing Lesions: None T2 [place] of Disease: Mild. Parenchymal Volume Loss: None. Other Significant Findings: None. MR CERVICAL: Counting reference: Craniocervical junction. Anatomic Variants: None. Alignment: Alignment is anatomic. Craniocervical Junction: Craniocervical junction is normal. Cord Findings: Patchy foci of hyperintensity are noted in the cervical cord on the T2, IR and axial gradient echo images compatible with the history of multiple sclerosis. Cord T2 Plaque [place]: Moderate New T2 Lesions: None Interval Cord Improvement: None New Cord Enhancing Lesions: None Cord Volume Loss: Mild Bone marrow signal/fracture: No evidence of pathologic marrow infiltration. No evidence of prior fracture. Cervical soft tissues: The paraspinal soft tissues are within normal limits. Cervical Canal and foramina: No significant canal or foraminal stenosis in the visualized spine. MR THORACIC: Counting reference: Lumbosacral junction. For the purposes of this report, L4-5 is considered the level of the iliac crest and there are 5 lumbar-type vertebrae. Anatomic Variants: None. Alignment: Alignment is anatomic. Cord Findings: Patchy foci of hyperintensity are noted in the thoracic cord on the T2, IR and axial gradient echo images compatible with the history of multiple sclerosis. Cord T2 Plaque [place]: Moderate New T2 Lesions: Greater than three Interval Cord Improvement: None New Cord Enhancing Lesions: None Cord Volume Loss: Normal morphology for age Bone marrow signal/fracture: No evidence of pathologic marrow infiltration. No evidence of prior fracture. Thoracic soft tissues: The paraspinal soft tissues are within normal limits. Canal and foramina: The thoracic canal and foramina are patent within the constraints of the study. *Note:? The definition of new T2 Lesions includes both new and enlarging plaques on T2-weighted FLAIR images (new lesions greater than or equal to 5mm3 or an increase in diameter of an existing lesion by greater than or equal to 2mm). DIVISION OF RADIOLOGY Provider, [facility] - 07/23/2022 * * *Final Report* * * DATE OF EXAM: Jul 23 2022 10:56AM [facility] 0295 - MRI BRAIN WO/W IVCON / PROCEDURE REASON: Multiple sclerosis (HCC) * * * * Physician Interpretation * * * * EXAMINATION: MRI BRAIN WO/W IVCON, MRI CERVICAL SPINE WO/W IVCON, MRI THORACIC SPINE WO/W IVCON HISTORY: Multiple sclerosis. Routine follow-up TECHNIQUE: Brain MRI with demyelinating disease protocol with and without gadolinium. Routine cervical spine and thoracic protocol with and without gadolinium. MQ: [id number] Contrast: 12 mL Dotarem IV COMPARISON: 02/24/2021 MRI brain RESULT: MR BRAIN: Parenchymal Findings: There are multiple foci of hyperintensity on FLAIR and T2 within the white matter, compatible with the clinical diagnosis of multiple sclerosis. New T2 Lesions: None Site(s) of New/Larger T2 Lesion(s): Not applicable Interval Improvement: None. New Enhancing Lesions: None T2 [place] of Disease: Mild. Parenchymal Volume Loss: None. Other Significant Findings: None. MR CERVICAL: Counting reference: Craniocervical junction. Anatomic Variants: None. Alignment: Alignment is anatomic. Craniocervical Junction: Craniocervical junction is normal. Cord Findings: Patchy foci of hyperintensity are noted in the cervical cord on the T2, IR and axial gradient echo images compatible with the history of multiple sclerosis. Cord T2 Plaque [place]: Moderate New T2 Lesions: None Interval Cord Improvement: None New Cord Enhancing Lesions: None Cord Volume Loss: Mild Bone marrow signal/fracture: No evidence of pathologic marrow infiltration. No evidence of prior fracture. Cervical soft tissues: The paraspinal soft tissues are within normal limits. Cervical Canal and foramina: No significant canal or foraminal stenosis in the visualized spine. MR THORACIC: Counting reference: Lumbosacral junction. For the purposes of this report, L4-5 is considered the level of the iliac crest and there are 5 lumbar-type vertebrae. Anatomic Variants: None. Alignment: Alignment is anatomic. Cord Findings: Patchy foci of hyperintensity are noted in the thoracic cord on the T2, IR and axial gradient echo images compatible with the history of multiple sclerosis. Cord T2 Plaque [place]: Moderate New T2 Lesions: Greater than three Interval Cord Improvement: None New Cord Enhancing Lesions: None Cord Volume Loss: Normal morphology for age Bone marrow signal/fracture: No evidence of pathologic marrow infiltration. No evidence of prior fracture. Thoracic soft tissues: The paraspinal soft tissues are within normal limits. Canal and foramina: The thoracic canal and foramina are patent within the constraints of the study. *Note:? The definition of new T2 Lesions includes both new and enlarging plaques on T2-weighted FLAIR images (new lesions greater than or equal to 5mm3 or an increase in diameter of an existing lesion by greater than or equal to 2mm). IMPRESSION IMPRESSION: Multiple intracranial white matter lesions compatible with multiple sclerosis. No new T2 lesions and no new enhancing lesions. No significant parenchymal volume loss. Other Significant Intracranial Findings: None Scattered intramedullary lesions compatible with the clinical history of multiple sclerosis. Greater than three new T2 intramedullary lesions and no new enhancing intramedullary lesions. Mild upper spinal cord volume loss for age. Other Significant Cervical Spine Findings: No significant cervical canal or foraminal stenosis. Other Significant Thoracic Spine Findings: No significant thoracic canal or foraminal stenosis. Cervical Anatomic Variant: None. Assume 7 cervical vertebrae with counting from the craniocervical junction. Thoracic Anatomic Variant: None. L4-5 is considered the level of the iliac crest and assume there are 5 lumbar-type vertebrae. Fisher Eel Spear: [facility] Transcribe Date/Time: Jul 23 2022 11:16A Dictated by : ANIRUDH NUÑEZ MD This examination was interpreted and the report reviewed and electronically signed by: ANIRUDH NUÑEZ MD on Jul 23 2022 6:11PM [facility] MR Cervical spine WO and W c ontrast Joe 07-23-2022 * * *Final Report* * * DATE OF EXAM: Jul 23 2022 10:56AM [facility] 0298 - MRI CERVICAL SPINE WO/W IVCON / PROCEDURE REASON: Multiple sclerosis (HCC) * * * * Physician Interpretation * * * * EXAMINATION: MRI BRAIN WO/W IVCON, MRI CERVICAL SPINE WO/W IVCON, MRI THORACIC SPINE WO/W IVCON HISTORY: Multiple sclerosis. Routine follow-up TECHNIQUE: Brain MRI with demyelinating disease protocol with and without gadolinium. Routine cervical spine and thoracic protocol with and without gadolinium. MQ: [id number] Contrast: 12 mL Dotarem IV COMPARISON: 02/24/2021 MRI brain RESULT: MR BRAIN: Parenchymal Findings: There are multiple foci of hyperintensity on FLAIR and T2 within the white matter, compatible with the clinical diagnosis of multiple sclerosis. New T2 Lesions: None Site(s) of New/Larger T2 Lesion(s): Not applicable Interval Improvement: None. New Enhancing Lesions: None T2 [place] of Disease: Mild. Parenchymal Volume Loss: None. Other Significant Findings: None. MR CERVICAL: Counting reference: Craniocervical junction. Anatomic Variants: None. Alignment: Alignment is anatomic. Craniocervical Junction: Craniocervical junction is normal. Cord Findings: Patchy foci of hyperintensity are noted in the cervical cord on the T2, IR and axial gradient echo images compatible with the history of multiple sclerosis. Cord T2 Plaque [place]: Moderate New T2 Lesions: None Interval Cord Improvement: None New Cord Enhancing Lesions: None Cord Volume Loss: Mild Bone marrow signal/fracture: No evidence of pathologic marrow infiltration. No evidence of prior fracture. Cervical soft tissues: The paraspinal soft tissues are within normal limits. Cervical Canal and foramina: No significant canal or foraminal stenosis in the visualized spine. MR THORACIC: Counting reference: Lumbosacral junction. For the purposes of this report, L4-5 is considered the level of the iliac crest and there are 5 lumbar-type vertebrae. Anatomic Variants: None. Alignment: Alignment is anatomic. Cord Findings: Patchy foci of hyperintensity are noted in the thoracic cord on the T2, IR and axial gradient echo images compatible with the history of multiple sclerosis. Cord T2 Plaque [place]: Moderate New T2 Lesions: Greater than three Interval Cord Improvement: None New Cord Enhancing Lesions: None Cord Volume Loss: Normal morphology for age Bone marrow signal/fracture: No evidence of pathologic marrow infiltration. No evidence of prior fracture. Thoracic soft tissues: The paraspinal soft tissues are within normal limits. Canal and foramina: The thoracic canal and foramina are patent within the constraints of the study. *Note:? The definition of new T2 Lesions includes both new and enlarging plaques on T2-weighted FLAIR images (new lesions greater than or equal to 5mm3 or an increase in diameter of an existing lesion by greater than or equal to 2mm). DIVISION OF RADIOLOGY Provider, [facility] - 07/23/2022 * * *Final Report* * * DATE OF EXAM: Jul 23 2022 10:56AM [facility] 0298 - MRI CERVICAL SPINE WO/W IVCON / PROCEDURE REASON: Multiple sclerosis (HCC) * * * * Physician Interpretation * * * * EXAMINATION: MRI BRAIN WO/W IVCON, MRI CERVICAL SPINE WO/W IVCON, MRI THORACIC SPINE WO/W IVCON HISTORY: Multiple sclerosis. Routine follow-up TECHNIQUE: Brain MRI with demyelinating disease protocol with and without gadolinium. Routine cervical spine and thoracic protocol with and without gadolinium. MQ: [id number]_[id number] Contrast: 12 mL Dotarem IV COMPARISON: 02/24/2021 MRI brain RESULT: MR BRAIN: Parenchymal Findings: There are multiple foci of hyperintensity on FLAIR and T2 within the white matter, compatible with the clinical diagnosis of multiple sclerosis. New T2 Lesions: None Site(s) of New/Larger T2 Lesion(s): Not applicable Interval Improvement: None. New Enhancing Lesions: None T2 [place] of Disease: Mild. Parenchymal Volume Loss: None. Other Significant Findings: None. MR CERVICAL: Counting reference: Craniocervical junction. Anatomic Variants: None. Alignment: Alignment is anatomic. Craniocervical Junction: Craniocervical junction is normal. Cord Findings: Patchy foci of hyperintensity are noted in the cervical cord on the T2, IR and axial gradient echo images compatible with the history of multiple sclerosis. Cord T2 Plaque [place]: Moderate New T2 Lesions: None Interval Cord Improvement: None New Cord Enhancing Lesions: None Cord Volume Loss: Mild Bone marrow signal/fracture: No evidence of pathologic marrow infiltration. No evidence of prior fracture. Cervical soft tissues: The paraspinal soft tissues are within normal limits. Cervical Canal and foramina: No significant canal or foraminal stenosis in the visualized spine. MR THORACIC: Counting reference: Lumbosacral junction. For the purposes of this report, L4-5 is considered the level of the iliac crest and there are 5 lumbar-type vertebrae. Anatomic Variants: None. Alignment: Alignment is anatomic. Cord Findings: Patchy foci of hyperintensity are noted in the thoracic cord on the T2, IR and axial gradient echo images compatible with the history of multiple sclerosis. Cord T2 Plaque [place]: Moderate New T2 Lesions: Greater than three Interval Cord Improvement: None New Cord Enhancing Lesions: None Cord Volume Loss: Normal morphology for age Bone marrow signal/fracture: No evidence of pathologic marrow infiltration. No evidence of prior fracture. Thoracic soft tissues: The paraspinal soft tissues are within normal limits. Canal and foramina: The thoracic canal and foramina are patent within the constraints of the study. *Note:? The definition of new T2 Lesions includes both new and enlarging plaques on T2-weighted FLAIR images (new lesions greater than or equal to 5mm3 or an increase in diameter of an existing lesion by greater than or equal to 2mm). IMPRESSION IMPRESSION: Multiple intracranial white matter lesions compatible with multiple sclerosis. No new T2 lesions and no new enhancing lesions. No significant parenchymal volume loss. Other Significant Intracranial Findings: None Scattered intramedullary lesions compatible with the clinical history of multiple sclerosis. Greater than three new T2 intramedullary lesions and no new enhancing intramedullary lesions. Mild upper spinal cord volume loss for age. Other Significant Cervical Spine Findings: No significant cervical canal or foraminal stenosis. Other Significant Thoracic Spine Findings: No significant thoracic canal or foraminal stenosis. Cervical Anatomic Variant: None. Assume 7 cervical vertebrae with counting from the craniocervical junction. Thoracic Anatomic Variant: None. L4-5 is considered the level of the iliac crest and assume there are 5 lumbar-type vertebrae. Fisher Eel Spear: [employer] Transcribe Date/Time: Jul 23 2022 11:16A Dictated by : ANRIUDH NUÑEZ MD This examination was interpreted and the report reviewed and electronically signed by: ANIRUDH NUÑEZ MD on Jul 23 2022 6:11PM [facility] MR Thoracic spine WO and W c ontrast Joe 07-23-2022 * * *Final Report* * * DATE OF EXAM: Jul 23 2022 10:56AM [facility] 0326 - MRI THORACIC SPINE WO/W IVCON / PROCEDURE REASON: Multiple sclerosis (HCC) * * * * Physician Interpretation * * * * EXAMINATION: MRI BRAIN WO/W IVCON, MRI CERVICAL SPINE WO/W IVCON, MRI THORACIC SPINE WO/W IVCON HISTORY: Multiple sclerosis. Routine follow-up TECHNIQUE: Brain MRI with demyelinating disease protocol with and without gadolinium. Routine cervical spine and thoracic protocol with and without gadolinium. MQ: [id number]_[id number] Contrast: 12 mL Dotarem IV COMPARISON: 02/24/2021 MRI brain RESULT: MR BRAIN: Parenchymal Findings: There are multiple foci of hyperintensity on FLAIR and T2 within the white matter, compatible with the clinical diagnosis of multiple sclerosis. New T2 Lesions: None Site(s) of New/Larger T2 Lesion(s): Not applicable Interval Improvement: None. New Enhancing Lesions: None T2 [place] of Disease: Mild. Parenchymal Volume Loss: None. Other Significant Findings: None. MR CERVICAL: Counting reference: Craniocervical junction. Anatomic Variants: None. Alignment: Alignment is anatomic. Craniocervical Junction: Craniocervical junction is normal. Cord Findings: Patchy foci of hyperintensity are noted in the cervical cord on the T2, IR and axial gradient echo images compatible with the history of multiple sclerosis. Cord T2 Plaque [place]: Moderate New T2 Lesions: None Interval Cord Improvement: None New Cord Enhancing Lesions: None Cord Volume Loss: Mild Bone marrow signal/fracture: No evidence of pathologic marrow infiltration. No evidence of prior fracture. Cervical soft tissues: The paraspinal soft tissues are within normal limits. Cervical Canal and foramina: No significant canal or foraminal stenosis in the visualized spine. MR THORACIC: Counting reference: Lumbosacral junction. For the purposes of this report, L4-5 is considered the level of the iliac crest and there are 5 lumbar-type vertebrae. Anatomic Variants: None. Alignment: Alignment is anatomic. Cord Findings: Patchy foci of hyperintensity are noted in the thoracic cord on the T2, IR and axial gradient echo images compatible with the history of multiple sclerosis. Cord T2 Plaque [place]: Moderate New T2 Lesions: Greater than three Interval Cord Improvement: None New Cord Enhancing Lesions: None Cord Volume Loss: Normal morphology for age Bone marrow signal/fracture: No evidence of pathologic marrow infiltration. No evidence of prior fracture. Thoracic soft tissues: The paraspinal soft tissues are within normal limits. Canal and foramina: The thoracic canal and foramina are patent within the constraints of the study. *Note:? The definition of new T2 Lesions includes both new and enlarging plaques on T2-weighted FLAIR images (new lesions greater than or equal to 5mm3 or an increase in diameter of an existing lesion by greater than or equal to 2mm). DIVISION OF RADIOLOGY [facility] * * *Final Report* * * DATE OF EXAM: Jul 23 2022 10:56AM [facility] 0326 - MRI THORACIC SPINE WO/W IVCON / PROCEDURE REASON: Multiple sclerosis (HCC) * * * * Physician Interpretation * * * * EXAMINATION: MRI BRAIN WO/W IVCON, MRI CERVICAL SPINE WO/W IVCON, MRI THORACIC SPINE WO/W IVCON HISTORY: Multiple sclerosis. Routine follow-up TECHNIQUE: Brain MRI with demyelinating disease protocol with and without gadolinium. Routine cervical spine and thoracic protocol with and without gadolinium. MQ: [id number]_3 Contrast: 12 mL Dotarem IV COMPARISON: 02/24/2021 MRI brain RESULT: MR BRAIN: Parenchymal Findings: There are multiple foci of hyperintensity on FLAIR and T2 within the white matter, compatible with the clinical diagnosis of multiple sclerosis. New T2 Lesions: None Site(s) of New/Larger T2 Lesion(s): Not applicable Interval Improvement: None. New Enhancing Lesions: None T2 [place] of Disease: Mild. Parenchymal Volume Loss: None. Other Significant Findings: None. MR CERVICAL: Counting reference: Craniocervical junction. Anatomic Variants: None. Alignment: Alignment is anatomic. Craniocervical Junction: Craniocervical junction is normal. Cord Findings: Patchy foci of hyperintensity are noted in the cervical cord on the T2, IR and axial gradient echo images compatible with the history of multiple sclerosis. Cord T2 Plaque [place]: Moderate New T2 Lesions: None Interval Cord Improvement: None New Cord Enhancing Lesions: None Cord Volume Loss: Mild Bone marrow signal/fracture: No evidence of pathologic marrow infiltration. No evidence of prior fracture. Cervical soft tissues: The paraspinal soft tissues are within normal limits. Cervical Canal and foramina: No significant canal or foraminal stenosis in the visualized spine. MR THORACIC: Counting reference: Lumbosacral junction. For the purposes of this report, L4-5 is considered the level of the iliac crest and there are 5 lumbar-type vertebrae. Anatomic Variants: None. Alignment: Alignment is anatomic. Cord Findings: Patchy foci of hyperintensity are noted in the thoracic cord on the T2, IR and axial gradient echo images compatible with the history of multiple sclerosis. Cord T2 Plaque [place]: Moderate New T2 Lesions: Greater than three Interval Cord Improvement: None New Cord Enhancing Lesions: None Cord Volume Loss: Normal morphology for age Bone marrow signal/fracture: No evidence of pathologic marrow infiltration. No evidence of prior fracture. Thoracic soft tissues: The paraspinal soft tissues are within normal limits. Canal and foramina: The thoracic canal and foramina are patent within the constraints of the study. *Note:? The definition of new T2 Lesions includes both new and enlarging plaques on T2-weighted FLAIR images (new lesions greater than or equal to 5mm3 or an increase in diameter of an existing lesion by greater than or equal to 2mm). IMPRESSION IMPRESSION: Multiple intracranial white matter lesions compatible with multiple sclerosis. No new T2 lesions and no new enhancing lesions. No significant parenchymal volume loss. Other Significant Intracranial Findings: None Scattered intramedullary lesions compatible with the clinical history of multiple sclerosis. Greater than three new T2 intramedullary lesions and no new enhancing intramedullary lesions. Mild upper spinal cord volume loss for age. Other Significant Cervical Spine Findings: No significant cervical canal or foraminal stenosis. Other Significant Thoracic Spine Findings: No significant thoracic canal or foraminal stenosis. Cervical Anatomic Variant: None. Assume 7 cervical vertebrae with counting from the craniocervical junction. Thoracic Anatomic Variant: None. L4-5 is considered the level of the iliac crest and assume there are 5 lumbar-type vertebrae. Fisher Eel Spear: [facility] Transcribe Date/Time: Jul 23 2022 11:16A Dictated by : ANIRUDH NUÑEZ MD This examination was interpreted and the report reviewed and electronically signed by: ANIRUDH NUÑEZ MD on Jul 23 2022 6:11PM [facility] No Panel Informationon 07-23 IMPRESSION: Multiple intracranial white matter lesions compatible with multiple sclerosis. No new T2 lesions and no new enhancing lesions. No significant parenchymal volume loss. Other Significant Intracranial Findings: None Scattered intramedullary lesions compatible with the clinical history of multiple sclerosis. Greater than three new T2 intramedullary lesions and no new enhancing intramedullary lesions. Mild upper spinal cord volume loss for age. Other Significant Cervical Spine Findings: No significant cervical canal or foraminal stenosis. Other Significant Thoracic Spine Findings: No significant thoracic canal or foraminal stenosis. Cervical Anatomic Variant: None. Assume 7 cervical vertebrae with counting from the craniocervical junction. Thoracic Anatomic Variant: None. L4-5 is considered the level of the iliac crest and assume there are 5 lumbar-type vertebrae. Fisher Eel Spear: [facility] Transcribe Date/Time: Jul 23 2022 11:16A Dictated by : ANIRUDH NUÑEZ MD This examination was interpreted and the report reviewed and electronically signed by: ANIRUDH NUÑEZ MD on Jul 23 2022 6:11PM [facility] DIVISION OF RADIOLOGY Radiology Study observation (narrative) [facility] No Panel InformationOrdered By: Ccf Provider on 07-23-2022 [facility] CBC W Auto Differential pane l (Bld)on 04-25-2022 Abs Immature Gran <0.03 <0.10 k/uL [facility] Basophils (Bld) [#/Vol] 0.03 10*3/uL <0.11 k/uL [facility] Basophils/100 WBC (Bld) 0.6 % [facility] Differential cell count method Nom (Bld) Auto [facility] Eosinophils (Bld) [#/Vol] 0.10 10*3/uL <0.46 k/uL [facility] Eosinophils/100 WBC (Bld) 2.0 % [facility] Erythrocyte distribution width (RBC) [Ratio] 13.9 % 11.5 - 15.0 % [facility] Hematocrit (Bld) [Volume fraction] 38.5 % 36.0 - 46.0 % [facility] Hemoglobin (Bld) [Mass/Vol] 12.0 g/dL 11.5 - 15.5 g/dL [facility] Immature Gran % 0.2 % [facility] Lymphocytes (Bld) [#/Vol] 1.54 10*3/uL 1.00 - 4.00 k/uL [facility] Lymphocytes/100 WBC (Bld) 30.2 % [facility] MCH (RBC) [Entitic mass] 25.4 pg Low 26.0 - 34.0 pg [facility] MCHC (RBC) [Mass/Vol] 31.2 g/dL 30.5 - 36.0 g/dL [facility] MCV (RBC) [Entitic vol] 81.4 fL 80.0 - 100.0 fL [facility] Monocytes (Bld) [#/Vol] 0.66 10*3/uL <0.87 k/uL [facility] Monocytes/100 WBC (Bld) 12.9 % [facility] Neutrophils (Bld) [#/Vol] 2.76 10*3/uL 1.45 - 7.50 k/uL [facility] Neutrophils/100 WBC (Bld) 54.1 % [facility] Nucleated RBC (Bld) [#/Vol] 10*3/uL <0.01 k/uL [facility] Nucleated RBC/100 WBC (Bld) [Ratio] 0.0 /100 WBC [facility] Platelet mean volume (Bld) [Entitic vol] 13.5 fL High 9.0 - 12.7 fL [facility] Platelets (Bld) [#/Vol] 168 10*3/uL 150 - 400 k/uL [facility] RBC (Bld) [#/Vol] 4.73 10*6/uL 3.90 - 5.2 0 m/uL [facility] WBC (Bld) [#/Vol] 5.10 10*3/uL 3.70 - 11. 00 k/uL [facility] URINALYSIS, REFLEX MICROSCOP ICon 04-25-2022 Bilirubin Ql (U) Negative Negative [facility] Clarity (Unsp spec) Clear Clear [facility] Color (U) Light Yellow Yellow [facility] Glucose Test strip (U) [Mass/Vol] Negative Negative [facility] Hemoglobin Ql (U) Negative Negative [facility] Ketones Ql (U) Negative Negative [facility] Leukocyte esterase Test strip Ql (U) Negative Negative [facility] Nitrite Ql (U) Negative Negative [facility] pH (U) 6.0 [pH] 5.0 - 8.0 [facility] Protein (U) [Mass/Vol] Negative Negative [facility] Specific gravity (U) [Rel density] 1.021 1.005 - 1.030 [facility] Urobilinogen Ql (U) Negative Negative [facility] CNPLilli 11-13-2021 [facility] Telephone (NERUSSELLFV) ----- CAROL ANN MARTINEZ ([id number]) 1985 F Date Time Provider Department 11/13/21 NIDIA GARCIA During your visit today, we recorded [...] (FLONASE) 50 mcg/actuation nasal spray Use 1 Langley in each nostril once daily. - MAGNESIUM ORAL Take 1 tablet by mouth twice daily. - Domlapec-Ri-Dzf-Fe-FA ( VITAMIN) tab Take 1 tablet by [...] Encounter Status:Closed by AUDIE GABRIEL on 11/13/21 [facility] Christiano 07-24-2021 [facility] Telephone (NEADFV) ----- CAROL ANN MARTINEZ Beto ([id number]) 1985 F Date Time Provider Department 07/24/21 NIDIA GARCIA During your visit today, we recorded the following information about you: Hanna Page Carroll 07/24/2021 12:34 PM Signed Patient called stating she is scheduled for an Ocrevus infusion on August 15, but will be out of state in [place]. She would like to have the infusion done there at [facility]. Also,she has new insurance as of May and will need to get the Ocrevus approved through her new insurance ([employer]- ). For questions call patient at [phone] Alexandra Benjamin Sec 07/24/2021 1:21 PM Signed Patient called back with a phone number of [phone] for [facility]. The phone # her [employer] is [phone]. Audie Gabriel RN 07/24/2021 1:51 PM Signed [...] (FLONASE) 50 mcg/actuation nasal spray Use 1 Langley in each nostril once daily. - MAGNESIUM ORAL Take 1 tablet by mouth twice daily. - Mpobxvsw-Cr-Osx-Fe-FA ( VITAMIN) tab Take 1 tablet by [...] Status:Closed by AUDIE GABRIEL on 07/24/21 [facility] Telephone Encounteron 2020 Assistant Produce Manager Authentication Interface Message Text Patient was identified by name and date of . Patient given message, patient denied additional questions. ----- Message from Sofy Pandya MD sent at 03/22/2021 12:34 PM EDT ----- Please notify neg HPV with ascus pap, OK to f/u in [address] Sofy Pandya Normal [facility] Telephone Encounteron 2020 Assistant Produce Manager Authentication Interface Message Text ----- Message from Sofy Pandya MD sent at 03/08/2021 2:28 PM EDT ----- Please notify ok Normal [facility] GC/CHLAMYDIA/TRICHOMONAS AMP LIFICATIONon 03-07-2021 GC/CHLAMYDIA/TRICHOMO BERTIN AMPLIFICATION CHLAMYDIA AMPLIFICATION: Negative GC AMPLIFICATION: Negative TRICHOMONAS AMPLIFICATION: Negative Normal Negative [facility] Comment on above: Order Comment: This test is performed using an automated nucleic acid amplification assay ([employer] Performed By: #### G CT #### [facility] Pathology [address] [facility] [place], [place] HEPATITIS C ANTIBODYon 03-07 HCV Non-Reactive Normal Nonreactive [facility] Comment on above: Performed By: #### H CV #### [facility] PATHOLOGY LABORATORY [address] [place] [address], HIV1 HIV2 AGAB SCRNon 2020 HIV AG-AB SCREEN Non-Reactive Normal Non-Reactive [facility] Comment on above: Order Comment: HIV Information: ???[place] Rev. code 3701.243(E): This information has been [...] #### h iv1 hiv2 agab scrn #### [facility] [address] [place] [address], HUMAN PAPILLOMA VIRUSon 02-09 HPV HIGH RISK Negative Normal Negative [facility] Comment on above: Order Comment: This test is performed using an automated nucleic acid amplification assay ([employer] [place], [place]). This assay detects RNA of HPV types 16,18,31,33,35,39,45,51,52,56,58,59,66 and 68 in cervical specimens. Result Comment: A ne gative result does not exclude the possibility of low levels of infection or sampling error. Performed By: #### H PV #### [facility] [address] [place] [address], Progress Noteson 03-07-2021 Assistant Produce Manager Authentication Interface Message Text SUBJECTIVE: Carol Ann Martinez is an 35 year old woman who presents for annual vc++ developer exam. No LMP recorded. Periods are regular [...] Abnormal Pap smear of cervix 2007- in [place]. had LEEP. no abn pap since * [...] Intravenous Push route. * Cholecalciferol 1.25 MG (64549 UT) TABS Take 50,000 Units by mouth once weekly. * Gdyorvpr-Spc-Sy-FA (Mynatal) CAPS Take by mouth. No current [...] no masses, non tender ASSESSMENT: Satisfactory annual vc++ developer exam PLAN: Dx: 1) Pap smear 2) (more content not included)... Normal [facility] Assistant Produce Manager Authentication Interface Message Text Patient at risk [...] bandage applied. Site appears normal. Normal [facility] Filter Paper Leadon 11-24-20 20 Lead <2 Normal <5 [facility] Lead Interpretation Normal [facility] Comment on above: Result Comment: Occu pationally exposed adults lead >40 requires medical followup. This test was developed and its performance characteristics determined by [facility]. It has not been cleared or approved by the U.S. Food and Drug Administration. The FDA has determined that such clearance or approval is not necessary. This test is used for clinical purposes. It should not be regarded as investigational or for research. Type of Puncture Capillary Specimen Normal [facility] Vital Signs Date Time Vital Sign Value Performing Clinician Facility 08-17-2024 14:43-0400 Body height 168.9 cm Janice Louis MD Work Phone: [facility] 08-17-2024 14:43-0400 Body mass index (BMI) [Ratio] 21.94 kg/m2 Janice Louis MD Work Phone: [facility] 08-17-2024 14:43-040 Body weight 62.6 kg Janice Louis MD Work Phone: [facility] 08-17-2024 14:43-0400 Diastolic blood pressure 71 mm[Hg] Janice Louis MD Work Phone: [facility] 08-17-2024 14:43-0400 Heart rate 93 /min Janice Louis MD Work Phone: [facility] 08-17-2024 14:43-0400 Systolic blood pressure 105 mm[Hg] Janice Louis MD Work Phone: [facility] 08-10-2024 10:06-0400 Body mass index (BMI) [Ratio] 21.91 kg/m2 Clarke Mayte DO Work Phone: [facility] 08-10-2024 10:06-0400 Body weight 62.51 kg Clarke Mayte DO Work Phone: [facility] 08-10-2024 10:06-0400 Diastolic blood pressure 70 mm[Hg] Clarke Mayte DO Work Phone: [facility] 08-10-2024 10:06-0400 Systolic blood pressure 104 mm[Hg] Clarke Mayte DO Work Phone: [facility] 07-19-2024 12:03-0400 Body height 167.[address] MD Work Phone: [facility] 07-19-2024 12:03-0400 Body mass index (BMI) [Ratio] 21.88 kg/m2 Janice Lane MD Work Phone: [facility] 07-19-2024 12:03-0400 Body temperature 97.59 [degF] Janice Lane MD Work Phone: [facility] 07-19-2024 12:03-0400 Body weight 61.[address] MD Work Phone: [facility] 07-19-2024 12:03-0400 Diastolic blood pressure 67 mm[Hg] Janice Lane MD Work Phone: [facility] 07-19-2024 12:03-0400 Heart rate 86 /min Janice Lane MD Work Phone: [facility] 07-19-2024 12:03-0400 SaO2% (BldA) [Mass fraction] 99 % Janice Lane MD Work Phone: [facility] 07-19-2024 12:03-0400 Systolic blood pressure 107 mm[Hg] Janice Lane MD Work Phone: [facility] 03-04-2024 13:00-0400 Body height 168.[address] MD Work Phone: [facility] 03-04-2024 13:00-0400 Body mass index (BMI) [Ratio] 19.52 kg/m2 Janice Lane MD Work Phone: [facility] 03-04-2024 13:00-0400 Body temperature 98.1 [degF] Janice Lane MD Work Phone: [facility] 03-04-2024 13:00-0400 Body weight 55.[address] MD Work Phone: [facility] 03-04-2024 13:00-0400 Diastolic blood pressure 66 mm[Hg] Janice Lane MD Work Phone: [facility] 03-04-2024 13:00-0400 Heart rate 95 /min Janice Lane MD Work Phone: [facility] 03-04-2024 13:00-0400 SaO2% (BldA) [Mass fraction] 100 % Janice Lane MD Work Phone: [facility] 03-04-2024 13:00-0400 Systolic blood pressure 101 mm[Hg] Janice Lane MD Work Phone: [facility] 12-25-2023 10:54-0500 Body weight 56.8 kg Tor Hernandez APRN.TOY ASSEMBLER WOOD Work Phone: [facility] 12-25-2023 10:54-0500 Diastolic blood pressure 67 mm[Hg] Tor Hernandez APRN.TOY ASSEMBLER WOOD Work Phone: [facility] 12-25-2023 10:54-0500 Heart rate 87 /min Tor Hernandez APRN.TOY ASSEMBLER WOOD Work Phone: [facility] 12-25-2023 10:54-0500 Systolic blood pressure 95 mm[Hg] Tor Hernandez APRN.TOY ASSEMBLER WOOD Work Phone: [facility] 12-23-2023 13:34-0500 Body mass index (BMI) [Ratio] 20.13 kg/m2 Marvin Howard DO Work Phone: [facility] 12-23-2023 13:34-0500 Body temperature 98.91 [degF] Marvin Howard DO Work Phone: [facility] 12-23-2023 13:34-0500 Body weight 57.42 kg Marvin Howard DO Work Phone: [facility] 12-23-2023 13:34-0500 Diastolic blood pressure 70 mm[Hg] Marvin Howard DO Work Phone: [facility] 12-23-2023 13:34-0500 Heart rate 88 /min Marvin Howard DO Work Phone: [facility] 12-23-2023 13:34-0500 SaO2% (BldA) [Mass fraction] 99 % Marvin Howard DO Work Phone: [facility] 12-23-2023 13:34-0500 Systolic blood pressure 120 mm[Hg] Marvin Howard DO Work Phone: [facility] 09-25-2023 13:25-0500 Body temperature 98.29 [degF] Chair Hialeah Work Phone: [facility] 09-25-2023 13:25-0500 Diastolic blood pressure 72 mm[Hg] Chair Hialeah Work Phone: [facility] 09-25-2023 13:25-0500 Heart rate 69 /min Chair Kylah Work Phone: [facility] 09-25-2023 13:25-0500 Respiratory rate 16 /min Chair Kylah Work Phone: [facility] 09-25-2023 13:25-0500 SaO2% (BldA) [Mass fraction] 99 % Chair Morales Work Phone: [facility] 09-25-2023 13:25-0500 Systolic blood pressure 102 mm[Hg] Chair Morales Work Phone: [facility] 07-23-2023 10:36-0400 Body weight 56.7 kg Tor Hernandez MORTGAGE COUNSELOR.TOY ASSEMBLER WOOD Work Phone: [facility] 07-23-2023 10:36-0400 Diastolic blood pressure 62 mm[Hg] Tor Hernandez MORTGAGE COUNSELOR.TOY ASSEMBLER WOOD Work Phone: [facility] 07-23-2023 10:36-0400 Heart rate 69 /min Tor Hernandez MORTGAGE COUNSELOR.TOY ASSEMBLER WOOD Work Phone: [facility] 07-23-2023 10:36-0400 Systolic blood pressure 94 mm[Hg] Tor Hernandez MORTGAGE COUNSELOR.TOY ASSEMBLER WOOD Work Phone: [facility] 02-12-2023 11:27-0400 Body height 167.[address] MD Work Phone: [facility] 02-12-2023 11:27-0400 Body weight 55.[address] MD Work Phone: [facility] 02-12-2023 11:27-0400 Diastolic blood pressure 67 mm[Hg] Janice Lane MD Work Phone: [facility] 02-12-2023 11:27-0400 Heart rate 60 /min Janice Lane MD Work Phone: [facility] 02-12-2023 11:27-0400 SaO2% (BldA) [Mass fraction] 98 % Janice Lane MD Work Phone: [facility] 02-12-2023 11:27-0400 Systolic blood pressure 107 mm[Hg] Janice Lane MD Work Phone: [facility] 01-17-2023 10:49-0500 Body weight 56.52 kg Nesha Santana MD Work Phone: [facility] 01-17-2023 10:49-0500 Diastolic blood pressure 73 mm[Hg] Nesha Santana MD Work Phone: [facility] 01-17-2023 10:49-0500 Heart rate 113 /min Nesha Santana MD Work Phone: [facility] 01-17-2023 10:49-0500 Systolic blood pressure 111 mm[Hg] Nesha Santana MD Work Phone: [facility] 10-28-2022 00:35-0500 Body temperature 100.1 [degF] MD Janice Lane Work Phone: [facility] 10-28-2022 00:35-0500 Diastolic blood pressure 73 mm[Hg] MD Janice Lane Work Phone: [facility] 10-28-2022 00:35-0500 Heart rate 100 /min MD Janice Lane Work Phone: [facility] 10-28-2022 00:35-0500 SaO2% (BldA) [Mass fraction] 98 % MD Janice Lane Work Phone: [facility] 10-28-2022 00:35-0500 Systolic blood pressure 112 mm[Hg] MD Janice Lane Work Phone: [facility] 10-27-2022 23:30-0500 Respiratory rate 16 /min MD Janice Lane Work Phone: [facility] 10-27-2022 21:08-0500 Body height 167.[address] Work Phone: [facility] 10-27-2022 21:08-0500 Body weight 62.[address] Work Phone: [facility] 09-27-2022 13:45-0500 Body temperature 98.8 [degF] Chair Morales Work Phone: [facility] 09-27-2022 13:45-0500 Diastolic blood pressure 65 mm[Hg] Chair Kylah Work Phone: [facility] 09-27-2022 13:45-0500 Heart rate 101 /min Chair Hialeah Work Phone: [facility] 09-27-2022 13:45-0500 Respiratory rate 16 /min Chair Kylah Work Phone: [facility] 09-27-2022 13:45-0500 SaO2% (BldA) [Mass fraction] 99 % Chair Hialeah Work Phone: [facility] 09-27-2022 13:45-0500 Systolic blood pressure 101 mm[Hg] Chair Hialeah Work Phone: [facility] 08-08-2022 07:54-0400 Body weight 61.42 kg Nesha Santana MD Work Phone: [facility] 08-08-2022 07:54-0400 Diastolic blood pressure 65 mm[Hg] Nesha Santana MD Work Phone: [facility] 08-08-2022 07:54-0400 Heart rate 82 /min Nesha Santana MD Work Phone: [facility] 08-08-2022 07:54-0400 Systolic blood pressure 106 mm[Hg] Nesha Santana MD Work Phone: [facility] 05-30-2022 14:00-0400 Diastolic blood pressure 55 mm[Hg] Deuce Rileya OTR/L Work Phone: [facility] 05-30-2022 14:00-0400 Systolic blood pressure 96 mm[Hg] Deuce Rileya OTR/L Work Phone: [facility] 04-25-2022 09:09-0400 Body height 168.9 cm Marshall Hanley MD, PhD Work Phone: [facility] 04-25-2022 09:09-0400 Body weight 62.6 kg Marshall Hanley MD, PhD Work Phone: [facility] 04-25-2022 09:09-0400 Diastolic blood pressure 62 mm[Hg] Marshall Hanley MD, PhD Work Phone: [facility] 04-25-2022 09:09-0400 Heart rate 106 /min Marshall Hanley MD, PhD Work Phone: [facility] 04-25-2022 09:09-0400 Systolic blood pressure 109 mm[Hg] Marshall Hanley MD, PhD Work Phone: [facility] 04-02-2022 17:47-0400 Diastolic blood pressure 75 mm[Hg] DO Vishal Tupa Work Phone: [facility] 04-02-2022 17:47-0400 Heart rate 90 /min DO Vishal Tupa Work Phone: [facility] 04-02-2022 17:47-0400 Respiratory rate 18 /min DO Vishal Tupa Work Phone: [facility] 04-02-2022 17:47-0400 SaO2% (BldA) [Mass fraction] 99 % DO Vishal Tupa Work Phone: [facility] 04-02-2022 17:47-0400 Systolic blood pressure 113 mm[Hg] DO Vishal Tupa Work Phone: [facility] 04-02-2022 15:46-0400 Body height 168.91 cm DO Vishal Tupa Work Phone: [facility] 04-02-2022 15:46-0400 Body mass index (BMI) [Ratio] 21.7 kg/m2 DO Vishal Tupa Work Phone: [facility] 04-02-2022 15:46-0400 Body temperature 98.5 [degF] DO Vishal Tupa Work Phone: [facility] 04-02-2022 15:46-0400 Body weight 62.14 kg DO Vishal Agarwal Work Phone: [facility] 03-26-2022 12:45-0400 Body temperature 98.8 [degF] Neur Infusion Work Phone: [facility] 03-26-2022 12:45-0400 Diastolic blood pressure 67 mm[Hg] Neur Infusion Work Phone: [facility] 03-26-2022 12:45-0400 Heart rate 95 /min Neur Infusion Work Phone: [facility] 03-26-2022 12:45-0400 Systolic blood pressure 100 mm[Hg] Neur Infusion Work Phone: [facility] 01-05-2020 11:52-0500 BMI (Body Mass Index) 20.71 kg/m2 Karri Jones BT-[place]kq-[place] [address] Work Phone: 01-05-2020 11:52-0500 Body weight 59.[address]-Pwviuufeev-Vo [facility] [address] Work Phone: 01-05-2020 11:52-0500 BP Diastolic 74 mm[Hg] Karri Jones RX-Jgdgvqtedn-Rb [facility] [address] Work Phone: Comment on above: Location: RUE; Position: Sitting 01-05-2020 11:52-0500 BP Systolic 108 mm[Hg] Karri Jones SI-Jpjcjsjbqc-Wd [facility] [address] Work Phone: Comment on above: Location: RUE; Position: Sitting 01-05-2020 11:52-0500 BSA (Body Surface Area) 1.68 m2 Karri Jones [place]va-[place] [address] Work Phone: 01-05-2020 11:52-0500 Height 168.91 cm Karri Jones NU-Tpbjkhzzrt-Bl [facility] 0 Work Phone: 01-05-2020 11:52-0500 Pulse (Heart Rate) 89 /min Karri Jones MG-[facility] -[facility] Work Phone: 01-05-2020 11:52-0500 Pulse Oximetry 99 % Karri Jones QG-Vkpmmslgyc-Sh [facility] 2299 Work Phone: 01-05-2020 11:52-0500 Respiratory Rate 16 /min Karri Jones MV-Ytunonooau-G [facility] 2299 Work Phone: 05-05-2019 08:59-0400 BP Diastolic 73 mm[Hg] [facility] 05-05-2019 08:59-0400 BP Systolic 103 mm[Hg] STAFF NON [facility] 05-05-2019 08:59-0400 Pulse (Heart Rate) 92 /min ST[facility]FF [facility] 04-09-2019 12:20-0400 Body weight 71.7 kg STAFF [facility] 04-09-2019 12:20-0400 Height 170.21 cm STAFF [facility] 04-09-2019 11:00-0400 Pulse Oximetry 98 % STAFF [facility] 04-09-2019 11:00-0400 Respiratory Rate 20 /min STAFF [facility] Encounters Encounter Date Encounter Type Care Provider Facility Start: 08-18-2024 End: 08-18-2024 Chart abstracting Tor Hernandez APRN.CNP Work Phone: [facility] Comment on above: Orders (OTC-Nutritio nal Suppl) Start: 08-17-2024 End: 08-17-2024 Office outpatient visit 25 minutes Janice Louis MD Work Phone: [facility] Comment on above: Multiple sclerosis a ffecting in second trimester (Multi) Start: 08-17-2024 End: 08-17-2024 Subsequent hospital visit by physician Zana Davis Obgynimg Ultrasound 3 [facility] Comment on above: Encounter for superv ision of normal , unspecified, unspecified trimester; AMA (advanced maternal age) primigravida 35+, third trimester ([facility]); Maternal care for other known or suspected poor growth, third trimester, not applicable or unspecified; Multiple sclerosis affecting in third trimester (Multi); History of LEEP (loop electrosurgical excision procedure) of cervix 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 trimester ([facility]-HCC); Cervical shortening affecting in third trimester Start: 08-16-2024 End: 08-16-2024 Specialty Pharmacy Kenzie Mccall [facility] Comment on above: SPP Neurology - Medi cation Refill (Glatiramer) Start: 08-10-2024 End: 08-10-2024 flow sheet Clarke Hu DO Work Phone: [facility] Comment on above: Third trimester preg alee; 28 weeks gestation of Start: 08-10-2024 End: 08-17-2024 ambulatory CLARKE MAYTE Not Available Comment on above: Need different presc ription & note made out Start: 07-30-2024 End: 07-30-[address] Facility:[facility] Start: 07-27-2024 End: 07-27-2024 ambulatory CLARKE HU Not Available Start: 07-20-2024 End: 07-20-2024 ambulatory Germania Wilkinson MD Work Phone: Neurology Comment on above: RLS (restless legs s yndrome) (Primary Dx); Primary insomnia Start: 07-20-2024 End: 07-20-2024 Telemedicine consultation with patient Germania Wilkinson MD Work Phone: Neurology Start: 07-19-2024 End: 07-19-2024 Patient encounter status Janice Lane MD Work Phone: [facility] Work Phone: Start: 07-19-2024 End: 07-19-2024 Specialty Pharmacy Kenzie Mccall [facility] Comment on above: SPP Neurology - Medi cation Refill (Glatiramer) Wellness examination (Primary Dx); Screening for depression; Encounter for screening examination for other mental health and behavioral disorders; Vasovagal syncope; Right hip pain; Multiple sclerosis (HCC); Dry skin; URI, acute Start: 07-13-2024 End: 07-13-2024 ambulatory CLARKE MAYTE Not Available Start: 07-08-2024 End: 07-08-[address] Facility:[facility] Start: 07-01-2024 End: 07-01-2024 ambulatory GERMANIA WILKINSON Facility:[facility] Start: 06-22-2024 Specialty Pharmacy Kenzie benson [facility] Comment on above: SPP Neurology - Medi cation Refill (Glatiramer) Start: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 [address] [place] [address] INSOMN[facility] Neurology Comment on above: INSOMNIA Start: 05-25-2024 End: 05-25-2024 Patient encounter procedure 05/25/2024 8:00 AM EDT Office Visit Neurology [address] [place] [address] ACTIGRAPHY Neurology Comment on above: ACTIGRAPHY Start: 05-24-2024 End: 05-24-2024 Specialty Pharmacy 05/24/2024 11:00 AM EDT Specialty Pharmacy [facility] [address] [place] [address] Pharmacist, [facility] [address] [place] [address] [place] [address] refill - glatiramer -- [facility] Comment on above: refill - glatiramer -- Start: 05-19-2024 End: 05-19-2024 Patient encounter procedure 05/19/2024 10:00 AM EDT Office Visit [facility] [address] [place] [address] Clarke Hu, DO [address] [facility] [place] [address] [facility] Start: 04-30-2024 End: 04-30-2024 Specialty Pharmacy 04/30/2024 11:00 AM EDT Specialty Pharmacy [facility] [address] [place] [address] Pharmacist, [facility] [address] [place] [address] [place] [address] refill--glatiramer [facility] Comment on above: refill--glatiramer Start: 04-21-2024 End: 04-21-2024 Patient encounter procedure 04/21/2024 8:00 AM EDT Office Visit Neurology [address] [place] [address] ACTIGRAPHY Neurology Comment on above: ACTIGRAPHY Start: 03-30-2024 End: 03-30-2024 ambulatory 03/30/2024 1:45 PM EDT [address] [address] Tor Hernandez, MORTGAGE COUNSELOR.[employer]SEM[employer] [address] [place] [address] What medicine to take during or off of [facility] Comment on above: What medicine to raúl e during or off of Start: 03-26-2024 End: 03-26-2024 ambulatory 03/26/2024 9:40 AM EDT [facility] Hematology/Oncology [address] [place] [address] Kylah, Chair [address] [place] [address] [place] [address] [facility] Comment on above: [facility] Start: 03-22-2024 End: 03-22-2024 ambulatory 03/22/2024 2:30 PM EDT [facility] Neurology [address] [place] [address] Ayan Marie, MORTGAGE COUNSELOR.[employer]SEM[employer] [address] [place] [address] F/U Neurology Comment on above: F/U Start: 03-08-2024 End: 03-08-2024 Patient encounter procedure 03/08/2024 8:00 AM EDT Office Visit Neurology [address] [place] [id number] ACTIGRAPHY Neurology Comment on above: ACTIGRAPHY Start: 03-07-2024 Screening for malign ant neoplasm of cervix [facility] Start: 03-04-2024 End: 06-03-2024 JOSSELIN BY IFA WITH REFLEX [facility] Comment on above: Expected: 03/04/2024 , Expires: 06/03/2024 Start: 03-04-2024 End: 06-03-2024 C reactive protein [Mass/volume] in Serum or Plasma [facility] Comment on above: Expected: 03/04/2024 , Expires: 06/03/2024 Start: 03-04-2024 End: 06-03-2024 Ferritin [Mass/volume] in Serum or Plasma [facility] Comment on above: Expected: 03/04/2024 , Expires: 06/03/2024 Start: 03-04-2024 End: 06-03-2024 Iron and Iron binding capacity panel - Serum or Plasma [facility] Comment on above: Expected: 03/04/2024 , Expires: 06/03/2024 Start: 03-04-2024 End: 06-03-2024 Rheumatoid factor [Units/volume] in Serum or Plasma [facility] Comment on above: Expected: 03/04/2024 , Expires: 06/03/2024 Start: 03-04-2024 End: 06-03-2024 Urate [Mass/volume] in Serum or Plasma [facility] Comment on above: Expected: 03/04/2024 , Expires: 06/03/2024 Start: 02-24-2024 [facility] Start: 12-11-2023 End: 08-21-2024 Mri brain brain stem w/o w/contrast material MRI BRAIN WO/W IVCON Radiology Routine Multiple sclerosis (HCC) Expected: 12/11/2023 (Approximate), Expires: 08/21/2024 [facility] Work Phone: Comment on above: Expected: 12/11/2023 (Approximate), Expires: 08/21/2024 Start: 11-10-2023 Behavioral Health Screening Behavioral Health Screening [facility] Start: 11-10-2023 Depression Assessment Depression Ass essment [facility] Start: 10-25-2023 End: 01-24-2024 CBC W Auto Differential panel - Blood CBC + DIFF Lab Routine Other drug-induced neutropenia (HCC) Expected: 10/25/2023 (Approximate), Expires: 01/24/2024 [facility] Work Phone: Comment on above: Expected: 10/25/2023 (Approximate), Expires: 01/24/2024 Start: 09-25-2023 End: 12-25-2023 CD19 ABSOLUTE COUNT [facility] Work Phone: Comment on above: Expected: 09/25/2023 , Expires: 12/25/2023 Start: 09-23-2023 End: 12-23-2023 Choriogonadotropin.beta subunit [Units/volume] in Serum or Plasma HCG QUANTITATIVE Lab Routine Multiple sclerosis (HCC) Expected: 09/23/2023, Expires: 12/23/2023 [facility] Work Phone: Comment on above: Expected: 09/23/2023 , Expires: 12/23/2023 Start: 09-23-2023 End: 12-23-2023 IgG [Mass/volume] in Serum or Plasma IGG Lab Routine Multiple sclerosis ([facility]) Expected: 09/23/2023, Expires: 12/23/2023 [facility] Work Phone: Comment on above: Expected: 09/23/2023 , Expires: 12/23/2023 Start: 09-23-2023 End: 12-23-2023 IgM [Mass/volume] in Serum or Plasma IGM Lab Routine Multiple sclerosis ([facility]) Expected: 09/23/2023, Expires: 12/23/2023 [facility] Work Phone: Comment on above: Expected: 09/23/2023 , Expires: 12/23/2023 Start: 07-11-2023 Covid-19 Vaccine ( season) Covid-19 Vaccine () [facility] Start: 07-11-2023 Influenza vaccination [facility] Start: 02-12-2023 End: 04-14-2023 CBC W Auto Differential panel - Blood [facility] Work Phone: Comment on above: Expected: 02/12/2023 , Expires: 04/14/2023 Start: 02-12-2023 End: 04-14-2023 Ferritin [Mass/volume] in Serum or Plasma [facility] Work Phone: Comment on above: Expected: 02/12/2023 , Expires: 04/14/2023 Start: 02-12-2023 End: 02-26-2023 Influenza virus A and B RNA and SARS-CoV-2 (COVID-19) N gene panel - Respiratory specimen by DEIRDRE with probe detection [facility] Work Phone: Comment on above: Expected: 02/12/2023 , Expires: 02/26/2023 Start: 02-12-2023 End: 04-14-2023 Iron and Iron binding capacity panel - Serum or Plasma [facility] Work Phone: Comment on above: Expected: 02/12/2023 , Expires: 04/14/2023 Start: 02-12-2023 End: 02-13-2024 PELVIC US WHI PELVIC US WHI Anc Imaging Routine Vaginal bleeding Expected: 02/12/2023, Expires: 02/13/2024 [facility] Work Phone: Comment on above: Expected: 02/12/2023 , Expires: 02/13/2024 Start: 02-05-2023 End: 12-07-2023 Mri brain brain stem w/o w/contrast material MRI BRAIN WO/W IVCON Radiology Routine Multiple sclerosis (HCC) Expected: 02/05/2023 (Approximate), Expires: 12/07/2023 [facility] Work Phone: Comment on above: Expected: 02/05/2023 (Approximate), Expires: 12/07/2023 Start: 02-05-2023 End: 12-07-2023 Mri spinal canal cervical w/o & w/contr matrl MRI CERVICAL SPINE WO/W IVCON Radiology Routine Multiple sclerosis (HCC) Expected: 02/05/2023 (Approximate), Expires: 12/07/2023 [facility] Work Phone: Comment on above: Expected: 02/05/2023 (Approximate), Expires: 12/07/2023 Start: 01-17-2023 End: 03-19-2023 25-hydroxyvitamin D3 [Mass/volume] in Serum or Plasma [facility] Work Phone: Comment on above: Expected: 01/17/2023 , Expires: 03/19/2023 Start: 01-17-2023 End: 03-19-2023 Cobalamin (Vitamin B12) [Mass/volume] in Serum or Plasma [facility] Work Phone: Comment on above: Expected: 01/17/2023 , Expires: 03/19/2023 Start: 01-17-2023 End: 03-19-2023 IgG [Mass/volume] in Serum or Plasma [facility] Work Phone: Comment on above: Expected: 01/17/2023 , Expires: 03/19/2023 Start: 01-17-2023 End: 03-19-2023 IgM [Mass/volume] in Serum or Plasma [facility] Work Phone: Comment on above: Expected: 01/17/2023 , Expires: 03/19/2023 Start: 01-17-2023 End: 03-19-2023 Thyrotropin [Units/volume] in Serum or Plasma [facility] Work Phone: Comment on above: Expected: 01/17/2023 , Expires: 03/19/2023 Start: 11-10-2022 [facility] Start: 10-27-2022 Plain chest X-ray XR chest 1V portab [facility] Start: 10-27-2022 XR Chest Single view [facility] Start: 07-11-2022 Influenza vaccination [facility] Start: 04-25-2022 End: 06-25-2022 Bacteria identified in Urine by Culture [facility] Work Phone: Comment on above: Expected: 04/25/2022 , Expires: 06/25/2022 Start: 04-24-2022 End: 06-24-2022 25-hydroxyvitamin D3 [Mass/volume] in Serum or Plasma VITAMIN D 25 HYDROXY Lab Routine Vitamin D deficiency Expected: 04/24/2022, Expires: 06/24/2022 [facility] Work Phone: Comment on above: Expected: 04/24/2022 , Expires: 06/24/2022 Start: 04-24-2022 End: 06-24-2022 Comprehensive metabolic 2000 panel - Serum or Plasma COMP METABOLIC PANEL Lab Routine Multiple sclerosis (HCC) Expected: 04/24/2022, Expires: 06/24/2022 [facility] Work Phone: Comment on above: Expected: 04/24/2022 , Expires: 06/24/2022 Start: 04-24-2022 End: 06-24-2022 IgG [Mass/volume] in Serum or Plasma IGG Lab Routine Multiple sclerosis ([facility]) Expected: 04/24/2022, Expires: 06/24/2022 [facility] Work Phone: Comment on above: Expected: 04/24/2022 , Expires: 06/24/2022 Start: 04-24-2022 End: 06-24-2022 IgM [Mass/volume] in Serum or Plasma IGM Lab Routine Multiple sclerosis ([facility]) Expected: 04/24/2022, Expires: 06/24/2022 [facility] Work Phone: Comment on above: Expected: 04/24/2022 , Expires: 06/24/2022 Start: 04-24-2022 End: 06-24-2022 VARICELLA ZOSTER IGG VARICELLA ZOSTER IGG Lab Routine Multiple sclerosis ([facility]) Expected: 04/24/2022, Expires: 06/24/2022 [facility] Work Phone: Comment on above: Expected: 04/24/2022 , Expires: 06/24/2022 Start: 02-08-2022 Adult depression screening assessment DEPRESSION SCREENING [facility] Start: 11-10-2021 DEPRESSION ASSESSMENT DEPRESSION ASS ESSMENT [facility] Start: 01-05-2020 Echocardiography Echocardiogram [facility] ardiology-[facility] [address] Work Phone: Start: 2015 HPV TESTING HPV TESTING [facility] Start: 2015 Screening for malign ant neoplasm of cervix HPV Testing [facility] Start: 2006 Screening for malign ant neoplasm of cervix HPV/Cotest [facility] Start: 2004 Hepatitis B Vaccines (1 of 3 - 19+ 3-dose series) Hepatitis B Vaccines (1 of 3 - 19+ 3-dose series) [facility] Start: 2003 Anxiety Screening Anxiety Screening [facility] Start: 2003 Depression Screening Depression Scre ening [facility] Start: 1998 Varicella vaccination Varicell a Vaccines (1 of 2 - 13+ 2-dose series) [facility] Start: 1990 COVID-19 VACCINE (#1) COVID-19 VACCI NE (#1) [facility] Start: 1990 COVID-19 VACCINE (1) COVID-19 VACCIN E (1) [facility] Start: 1986 MMR Vaccines (1 of 1 - Standard series) MMR Vaccines (1 of 1 - Standard series) [facility] Start: 02-01-1986 COVID-19 VACCINE (#1) COVID-19 VACCI NE (#1) [facility] Start: 1985 HEPATITIS B (1 of 3 - 3-dose series) HEPATITIS B (1 of 3 - 3-dose series) [facility] Start: 1985 Lipid panel Lipid Panel [facility] Start: 1985 Medicare Annual Well ness Visit Medicare Annual Wellness Visit (AWV) [facility] 25-hydroxyvitamin D3 [Mass/volume] in Serum or Plasma VITAMIN D 25 HYDROXY Lab Routine Vitamin D deficiency 04/25/2022 11:12 AM EDT [facility] Work Phone: Bacteria identified in Genital specimen by Aerobe culture [facility] Work Phone: Comprehensive metabo lic 2000 panel - Serum or Plasma COMP METABOLIC PANEL Lab Routine Multiple sclerosis (HCC) 04/25/2022 11:12 AM EDT [facility] Work Phone: ECG COMPLETE ECG COMPLETE ECG Routine Vasovagal syncope Ordered: 07/19/2024 [facility] Work Phone: Comment on above: Ordered: 07/19/2024 End: 04-25-2023 EPIL EEG ROUTINE EPIL EEG ROUTINE NEUROLOGY Routine Multiple sclerosis (HCC) 1 Occurrences starting 04/25/2022 until 04/25/2023 [facility] Work Phone: Comment on above: 1 Occurrences starti ng 04/25/2022 until 04/25/2023 Glucose measurement estimated from glycated hemoglobin [facility] End: 06-08-2025 HOME SLEEP APNEA TEST (HSAT) HOME SLEEP APNEA TEST (HSAT) Procedures Routine Snoring Chronic insomnia Malaise and fatigue At risk for obstructive sleep apnea 1 Occurrences starting 06/08/2024 until 06/08/2025 [facility] Work Phone: Comment on above: 1 Occurrences starti ng 06/08/2024 until 06/08/2025 IgG [Mass/volume] in Serum or Plasma IGG Lab Routine Multiple sclerosis ([facility]) 04/25/2022 11:12 AM EDT [facility] Work Phone: IgM [Mass/volume] in Serum or Plasma IGM Lab Routine Multiple sclerosis ([facility]) 04/25/2022 11:12 AM EDT [facility] Work Phone: End: 01-23-2025 MR Thoracic spine WO and W contrast IV MRI THORACIC SPINE WO/W IVCON Radiology Routine Multiple sclerosis ([facility]) 1 Occurrences starting 12/25/2023 until 01/23/2025 [facility] Work Phone: Comment on above: 1 Occurrences starti ng 12/25/2023 until 01/23/2025 OT PLAN OF CARE CERTIFICATION OT PLAN OF CARE CERTIFICATION Procedures Routine Multiple sclerosis ([facility]) Abnormal antibody titer Neurogenic bladder Lack of coordination Ordered: 05/30/2022 [facility] Work Phone: Comment on above: Ordered: 05/30/2022 Patient Education [facility] Work Phone: Patient referral [facility] Work Phone: PT PLAN OF CARE CERTIFICATION PT PLAN OF CARE CERTIFICATION Procedures Routine Abnormality of gait Multiple sclerosis ([facility]) Ordered: 07/22/2022 [facility] Work Phone: Comment on above: Ordered: 07/22/2022 SPEECH PLAN OF CARE CERTIFICATION SPEECH PLAN OF CARE CERTIFICATION Procedures Routine Multiple sclerosis ([facility]) Cognitive communication deficit Ordered: 05/30/2022 [facility] Work Phone: Comment on above: Ordered: 05/30/2022 SPEECH PLAN OF CARE CERTIFICATION SPEECH PLAN OF CARE CERTIFICATION Procedures Routine Cognitive communication deficit Ordered: 07/22/2022 [facility] Work Phone: Comment on above: Ordered: 07/22/2022 VARICELLA ZOSTER IGG VARICELLA Z YARELIS IGG Lab Routine Multiple sclerosis ([facility]) 04/25/2022 11:12 AM EDT [facility] Work Phone: End: 04-03-2025 XR Cervical spine AP and Lateral and oblique XR CERV OTHER 4V AP/LAT/OBL Radiology Routine Neck pain 1 Occurrences starting 03/04/2024 until 04/03/2025 [facility] Work Phone: Comment on above: 1 Occurrences starti ng 03/04/2024 until 04/03/2025 XR Cervical spine AP and Lateral and oblique XR CERV OTHER 4V AP/LAT/OBL Radiology Routine Neck pain 03/04/2024 2:13 PM EDT [facility] End: 04-03-2025 XR Lumbar spine 3 Views XR LUMBAR GENERAL 3V AP/LAT/L5-S1 Radiology Routine Chronic midline low back pain without sciatica 1 Occurrences starting 03/04/2024 until 04/03/2025 [facility] Comment on above: 1 Occurrences starti ng 03/04/2024 until 04/03/2025 XR Lumbar spine 3 Views XR LUMBA R GENERAL 3V AP/LAT/L5-S1 Radiology Routine Chronic midline low back pain without sciatica 03/04/2024 2:12 PM EDT [facility] VJ-[id number]-W roe amaya [address] Work Phone: [facility] NEGATED: Highlighted row has been ruled out! Planned Goals not documented [id number]-[id number] ke [address]00 Work Phone: Immunizations Immunization Date Immunization Notes Care Provider Jacob bush 11-20-2023 influenza, injectabl e, quadrivalent, preservative free Kenzie Mccall [facility] 11-20-2023 influenza virus vaccine, unspecified formulation Kenzie Mccall [facility] 01-15-2022 tetanus toxoid, redu minor diphtheria toxoid, and acellular pertussis vaccine, adsorbed Nidia Garcia MD Work Phone: [facility] Payers Date Payer Category Payer Self-pay [id number] 2023 Private Health Insurance [id number] 2022 Unknown [id number] 2021 Medicare [facility] [employer] [facility] [id number] 2021-Present [phone] [address] [place] [address] [facility] [id number] 2021 Medicare [id number] 2020 Private Health Insurance [id number] 2020 Medicaid MEDICAID [facility] MEDICAID [id number] 2020-Present [phone] [address] [place] [address] Medicaid [id number] 2020 Medicaid [id number] .[id number] 2020 Medicaid [id number] 1985 Unknown [id number] 2.16.840.1.743891.3.579.2.7 32 1985 Unknown [id number] 2.16.840.1.943228.3.579.2.1 259 1985 Unknown [id number] 2.16.840.1.640189.3.579.2.1 259 1985 Unknown [id number] 2.16.840.1.822319.3.579.2.1 259 1985 Unknown [id number] 2.16.840.1.506714.3.579.2.1 259 1985 Unknown [id number] 2.16.840.1.965161.3.579.2.1 259 1985 Unknown [id number] 2.16.840.1.154645.3.579.2.1 259 1985 Unknown [id number] 2.16.840.1.907954.3.579.2.1 259 1985 Unknown [id number] 2.16.840.1.969171.3.579.2.1 259 1985 Unknown [id number] 2.16.840.1.362233.3.579.2.1 259 1985 Unknown [id number] 2.16.840.1.988280.3.579.2.1 259 1985 Unknown [id number] 2.16.840.1.304355.3.579.2.1 259 1985 Unknown [id number] 2.16.840.1.833865.3.579.2.1 259 1985 Unknown [id number] 2.16.840.1.468062.3.579.2.1 259 1985 Unknown [id number] 2.16.840.1.860818.3.579.2.1 259 1985 Unknown [id number] 2.16.840.1.271782.3.579.2.1 259 1985 Unknown [id number] 2.16.840.1.329057.3.579.2.1 259 1985 Unknown [id number] 2.16.840.1.511698.3.579.2.1 259 Medicaid [id number] Medicare [id number] Unknown [id number] 2.16.840.1.861402.3.579.2.5 31 Unknown [id number] 2.16.840.1.522015.3.579.2.5 31 Unknown [id number] 2.16.840.1.949931.3.579.2.5 31 Unknown [id number] 2.16.840.1.976569.3.579.2.5 31 Social History Date Type Detail Facility Tobacco smoking stat us MNIS Unknown if ever smoked [facility] Start: 1985 Sex Assigned At Female C [facility] Start: 11-15-2019 End: 07-17-2023 Tobacco smoking status NHIS Never smoked tobacco [facility] Start: 11-15-2019 End: 07-17-2023 Tobacco use and exposure Smokeless tobacco non-user [facility] Start: 01-15-2022 End: 07-19-2024 Alcohol intake Ex-drinker (finding) [facility] Start: 11-15-2019 History SDOH Alcohol Comment occas [facility] Start: 03-16-2022 End: 08-17-2024 Exposure to SARS-CoV-2 (event) Not sure [facility] Start: 04-25-2022 Education 17 [facility] Start: 12-16-2022 History SDOH Alcohol Frequency 1 [facility] Start: 12-16-2022 History SDOH Alcohol Std Drinks 0 [facility] Start: 12-16-2022 History SDOH Social Connections Phone 4 [facility] Start: 12-16-2022 History SDOH Social Connections Membership 2 [facility] Start: 12-16-2022 History SDOH Social Connections Living 7 [facility] Start: 12-16-2022 History SDOH Physica l Activity MPS 3 [facility] Start: 12-16-2022 History SDOH Stress 5 [facility] Start: 12-16-2022 End: 07-17-2023 History of Social function [facility] Start: 12-16-2022 End: 07-17-2023 Social connection and isolation panel [facility] Do you belong to any clubs or organizations such as sikhism groups, unions, fraternal or athletic groups, or school groups? No [facility] Are you now , , , , never or living with a partner? Never [facility] How often to you hav e a drink containing alcohol? Never [facility] How many standard drinks containing alcohol do you have on a typical day? Patient does not drink [facility] How hard is it for y ou to pay for the very basics like food, housing, medical care, and heating Somewhat hard [facility] Do you feel stress - tense, restless, nervous, or anxious, or unable to sleep at night because your mind is troubled all the time - these days [OSQ] Very much [facility] (I/We) worried wheth er (my/our) food would run out before (I/we) got money to buy more. Often true [facility] Start: 12-23-2020 Gender identity Identifies as female gender (finding) [facility] Start: 12-23-2020 Sexual orientation Heterosexual (fin koby) [facility] History of tobacco use Passive smoker [facility] Start: 12-11-2023 End: 08-17-2024 Alcohol intake Lifetime non-drinker (finding) [facility] Start: 02-04-2024 [facility] NEGATED: Highlighted row - - TQ-Ixwygpjgex-Wrewx vahid 0 Work Phone: Goals Date Patient Goal Desired Activity /State Personal health goal Personal health goal Personal health goal Functional Status Date Assessment Result Facility NEGATED: Highlighted row Functional performance Functional status health issues are not documented Disease FF-Lzbrmkzszx-Hbqay vahid 2300 Work Phone: Mental Status Date Assessment Result Facility NEGATED: Highlighted row Cognitive function [Interpretation] Cognitive status health issues are not documented Disease LT-Dylerelvlw-Bbkyo vahid 230 Work Phone: Clinical Notes 04-17-2021 to 08-18-2024 Clarice Zepeda HUC - 08/18/2024 9:03 AM EDTJanice Louis MD - 08/17/2024 3:00 PM EDTTelephone Encounter - Tor Hernandez APRN.CNP - 08/17/2024 10:26 AM EDTPatient InstructionsPatient Instructions Note Date & Type Note Facility 08-18-2024 Note HNO ID: [id number] Author: CLARICE ZEPEDA HUC Service: ? Author Type: Health Manager Truck Type: Progress Notes Filed: 08/18/2024 09:03 Note Text: Mialed OTC-Nutritional Suppl order to pt CAROL ANN MARTINEZ [address] [place] [address] [facility] 08-18-2024 History of Present illness Narrative Mialed OTC-Nutritional Suppl order to pt CAROL ANN MARTINEZ [address] [place] [id number] documented in this encounter [facility] 08-17-2024 History of Present illness Narrative Subjective Carol Ann Martinez is a 39 y.o. at 29w6d followed in consultation for multiple sclerosis. She reports that her course has remained otherwise uncomplicated to date. She reports normal diabetes screening. Objective Visit Vitals BP 105/71 (BP Location: Right arm, Patient Position: Sitting, BP Cuff Size: Adult) Pulse 93 Physical Exam Weight: 62.6 kg (138 lb) BP: 105/71 Labs Urine dip: Lab Results Component Value Date KETONESU NEGATIVE 08/17/2024 Imaging Reassuring EFW/BPP Assessment and plan: Decreased cervical length and history of LEEP: An incidental shortened cervical length had been previously identified. She does not have a history of prior . She remains asymptomatic and is aware of the increased risk of labor secondary to the prior finding of decreased cervical length and is aware of clinical precautions. History of growth restriction Ultrasound was reassuring today with planned follow up in 3-4 weeks. Multiple sclerosis She follows closely with neurology who is treated with Copaxone injections. She reports recent increased right sided pain including her arm and leg, for which she was encouraged to contact her neurologist. Her gait remains unstable and wheelchair had been previously recommended to prevent falls. She has not had falls (or motor vehicle accidents) since her prior visit. She reports that an electronic wheelchair has been approved though the order needs to be finalized, which was encouraged. She is aware of the risk of falls and precautions. Follow up ultrasound is scheduled. Secondary to geographic constraints and barriers to care she will continue to follow locally, with follow up MFM consultation available as indicated. Janice Louis MD Maternal Medicine documented in this encounter [facility] Work Phone: 08-17-2024 Telephone encounter Note Prescription signed and had to be printed, will send out Letter written and placed in chart Tor Hernandez APRN.CNP August 17, 2024 10:26 AM [facility] 08-17-2024 Miscellaneous Notes Prescription signed and had to be printed, will send out Letter written and placed in chart Tor Hernandez APRN.CNP August 17, 2024 10:26 AM documented in this encounter [facility] 08-16-2024 History of Present illness Narrative [facility] [...] laboratory parameters, disease state markers and outcomes. Office/provider notes have been reviewed prior to dispensing the medication. Order Management Specialist Assessment Patient confirmed: Yes Med/dose confirmed: Yes Supplies needed: No supplies needed Missed doses: No Estimated days supply on hand: (maybe 2 weeks, not sure) Next cycle/dose due: 08/16/24 Copay amount: 0 Payment confirmed: Yes Delivery method: FedEx Signature required: Waived on patient request Delivery address: [address] [facility] [address] Delivery date: 08/31/24 Questions or concerns for the pharmacist?: No Did you have any side effects believed to be related to this medication, that resulted in hospitalization?: No Current Outpatient Medications on File Prior to Visit Medication Sig mometasone (ELOCON) 0.1 % cream Apply to affected area once daily. glatiramer (COPAXONE) 40 mg/mL injection Inject 40 [...] shampoo 2-3 times weekly as body wash Norethindrone, Contraceptive, 0.35 mg tablet Take 0.35 mg by mouth. (Patient not taking: Reported on 12/25/2023) vitamin B complex with C-FA-CU-ZN renal vitamins (DIATX ZN) 5-1.5-25 mg tab Take by mouth every 24 hours. FERROUS SULFATE ORAL Take by mouth every 24 hours. multivitamin with minerals (MULTIPLE VITAMIN-MINERALS) tablet Take 1 tablet by mouth every 24 hours. Norethindrone, Contraceptive, (JENCYCLA) 0.35 mg tablet Take [...] VITAMIN B COMPLEX ORAL Take by mouth. fluticasone (FLONASE) 50 mcg/actuation nasal spray Use 1 Langley in each nostril once daily. No current facility-administered medications on file prior to visit. [facility] CLINICAL ASSESSMENT - NEUROLOGY V7: Assessment to use: Refill Date of influenza vaccination reminder: 07/21/2024 Date of most recent vaccination assessment: 07/21/2024 Treatment Plan Information: Copazone/Glatopa/glatiramer Refrigerated, take out [...] inject where skin looks healthy. Training video ([employer] no longer supplies nurses for training, or injection devices) PFS supplied and training video https://www.[employer]/injectio n-assistance/etv-tm-tiaksi DDI none pertinent Vaccines reviewed Est. Tx Plan Start Date: No information available Estimated Start Date Info: No information available Est. Estimated Treatment Duration: No information available Madison Puente ([employer]) documented in this encounter [facility] 08-16-2024 Note HNO ID: [id number] Author: ?, ?, ? Service: ? Author Type: ? Type: Progress Notes Filed: 08/16/2024 10:50 Note Text: [facility] Refill Assessment Medication(s): [...] laboratory parameters, disease state markers and outcomes. Office/provider notes have been reviewed prior to dispensing the medication. Order Management Specialist Assessment Patient confirmed: Yes Med/dose confirmed: Yes Supplies needed: No supplies needed Missed doses: No Estimated days supply on hand: (maybe 2 weeks, not sure) Next cycle/dose due: 08/16/24 Copay amount: 0 Payment confirmed: Yes Delivery method: FedEx Signature required: Waived on patient request Delivery address: [address] [place] [id number] Delivery date: 08/31/24 Questions or concerns for the pharmacist?: No Did you have any side effects believed to be related to this medication, that resulted in hospitalization?: No Current Outpatient Medications on File Prior to Visit Medication Sig mometasone (ELOCON) 0.1 % cream Apply to affected area once daily. glatiramer (COPAXONE) 40 mg/mL injection Inject 40 [...] shampoo 2-3 times weekly as body wash Norethindrone, Contraceptive, 0.35 mg tablet Take 0.35 mg by mouth. (Patient not taking: Reported on 12/25/2023) vitamin B complex with C-FA-CU-ZN renal vitamins (DIATX ZN) 5-1.5-25 mg tab Take by mouth every 24 hours. FERROUS SULFATE ORAL Take by mouth every 24 hours. multivitamin with minerals (MULTIPLE VITAMIN-MINERALS) tablet Take 1 tablet by mouth every 24 hours. Norethindrone, Contraceptive, (JENCYCLA) 0.35 mg tablet Take [...] VITAMIN B COMPLEX ORAL Take by mouth. fluticasone (FLONASE) 50 mcg/actuation nasal spray Use 1 Langley in each nostril once daily. No current facility-administered medications on file prior to visit. [facility] CLINICAL ASSESSMENT - NEUROLOGY V7: Assessment to use: Refill Date of influenza vaccination reminder: 07/21/2024 Date of most recent vaccination assessment: 07/21/2024 Treatment Plan Information: Copazone/Glatopa/glatiramer Refrigerated, take out [...] inject where skin looks healthy. Training video ([employer] [facility] [employer] no longer supplies nurses for training, or injection devices) PFS supplied and training video https://www.[employer]/injectio n-assistance/kbx-ie-tkndwf DDI none pertinent Vaccines reviewed Est. Tx Plan Start Date: No information available Estimated Start Date Info: No information available Est. Estimated Treatment Duration: No information available Madison Puente (Contract Associate) [facility] 08-10-2024 History of Present illness Narrative Reason for Appointment: Patient ID: Carol Ann Martinez is a 39 y.o. female who presents for Routine Visit Patient presents today for Return OB appointment. MEDICATIONS Current Outpatient Medications Medication Instructions B Complex-C (b complex-vitamin c) tablet 1 tablet, Oral, Daily RT cetirizine (ZYRTEC) 10 mg, Oral, Daily cholecalciferol (VITAMIN D3) 1.25 mg, Oral, Weekly clotrimazole-betamethasone (Lotrisone) cream 1 application , Topical, Daily, Apply to affected area daily for 7 days ergocalciferol (VITAMIN D-2) 50,000 Units, Oral, Weekly Ferrous Sulfate (IRON PO) 1 tablet, Oral, Daily RT glatiramer (COPAXONE,GLATOPA) 20 mg, Subcutaneous, Daily RT magnesium oxide (Mag-Ox) 400 MG tablet 1 tablet, Oral, Nightly mometasone (Elocon) 0.1 % cream Topical, Daily RT Multiple Vitamin (multivitamin) tablet 1 tablet, Oral, Daily Paqozelo-Phh-Va-FA (Jenliva /) 1 MG capsule Oral Vit-Fe Fumarate-FA ( Plus/Iron) 27-1 MG tablet 1 tablet, Oral, Daily, Please dispense what insurance approves. ALLERGIES Allergies Allergen Reactions Gluten Meal Hives, Itching [...] constipated More constipated More constipated More constipated PROBLEMS Active Ambulatory Problems Diagnosis Date Noted HSV (herpes simplex virus) infection 03/22/2024 Positive urine test 03/22/2024 Well woman exam with routine gynecological exam 03/22/2024 Missed menses 03/22/2024 Resolved Ambulatory Problems Diagnosis Date Noted No Resolved Ambulatory Problems Past Medical History: Diagnosis Date Abnormal Pap smear of cervix 2007 Bacterial vaginosis 2018 Hypocalcemia Hypoglycemia Low iron MS (multiple sclerosis) ([facility]) Urinary incontinence 2009 HISTORY PAST MEDICAL HISTORY SOCIAL HISTORY Past Medical History: Diagnosis Date Abnormal Pap smear of cervix 2008 Bacterial vaginosis 2019 Hypocalcemia Hypoglycemia Low iron MS (multiple sclerosis) ([facility]) Urinary incontinence 2009 Social History Tobacco Use Smoking status: Never Smokeless tobacco: Never Substance Use Topics Alcohol use: Never Drug use: Never FAMILY HISTORY Family History Problem Relation Name Age of Onset Prostate cancer Father Multiple sclerosis Sister Diabetes Paternal Grandmother Kaitlin Martinez Alzheimer's disease Paternal Grandmother Kaitlin Martinez Prostate cancer Paternal Grandfather SURGICAL HISTORY Past Surgical History: Procedure Laterality Date CERVICAL BIOPSY W/ LOOP ELECTRODE EXCISION 2007 COLONOSCOPY 2007 and 2017 COLPOSCOPY 2007 & 2017 DILATION AND CURETTAGE OF UTERUS 2023 WISDOM TOOTH EXTRACTION REVIEW OF SYSTEMS Review of Systems: Review of Systems Constitutional: Negative. HENT: Negative. Eyes: Negative. Respiratory: Negative. Cardiovascular: Negative. Gastrointestinal: Negative. Genitourinary: Negative. Musculoskeletal: Negative. Skin: Negative. Neurological: Negative. All other systems reviewed and are negative. Hematological: Negative. Endocrine: Negative. Allergic/Immunologic: Negative. OBJECTIVE Objective: Physical Exam Constitutional: Appearance: Normal appearance. She is well-developed. Cardiovascular: Rate and Rhythm: Normal rate and regular rhythm. Pulmonary: Effort: Pulmonary effort is normal. Breath sounds: Normal breath sounds. Abdominal: General: Bowel sounds are normal. There is no distension. Palpations: Abdomen is soft. Tenderness: There is no abdominal tenderness. There is no guarding or rebound. Musculoskeletal: General: No swelling. Normal range of motion. Right lower leg: No edema. Left lower leg: No edema. Neurological: Mental Status: She is alert and oriented to person, place, and time. Skin: General: Skin is warm and dry. Psychiatric: Mood and Affect: Mood normal. Behavior: Behavior normal. Vitals and nursing note reviewed. Exam conducted with a chemical plant operator present. Vitals: Estimated body mass index is 21.91 kg/m as calculated from the following: Height as of 09/18/23: 5' 6.5 . Weight as of this encounter: 137 lb 12.8 oz. BP: 104/70 Patient's last menstrual period was 02/09/2024. ASSESSMENT & PLAN ICD-10-CM 1. Third trimester Z34.93 Urine dip 2. 28 weeks gestation of Z3A.28 Return OB: Patient presents today for a routine obstetrics appointment. Patient is currently 28w6d . Patient states she is doing well but has complaints of being tired due to current . Patient has verbalizes frequent movement. labor precautions was discussed/given and patient was instructed to perform kick counts three times a day. Cervical length 2.4cm still on pelvic rest. Orders Placed This Encounter Procedures Urine dip Follow Up: Patient is to return to office in 2 week for routine OB appointment. Documented by Aleyda Portillo LPN on behalf of: Clarke Hu DO documented in this encounter [facility] 07-30-2024 Note HNO ID: [id number] Author: IBAN LAZO, PhD Service: ? Author Type: Psychologist Type: Progress Notes Filed: 07/30/2024 16:31 Note Text: Behavioral Sleep Medicine Follow up Iban Lazo, PhD I have communicated my name and active licensure. The patient's identity and physical location were verified at the time of this visit. Either the patient or their legal human resources hr representative has been informed of the risks and benefits of -- and alternatives to -- treatment through a remote evaluation and consents to proceed with the evaluation remotely. Contact Method: Zoom Patient Confirmed Address: [address] [place], [place] [id number] Patient Confirmed Telephone #: [phone] Time: 56 minutes Individual Psychotherapy Session # 4 TREATMENT MODALITIES: CBTI Motivational Interviewing SUBJECTIVE/OBJECTIVE: Patient update: Recommendations per last visit: Daughter gets on bus at 11:30 AM - will get daughter ready around 9:30 AM Will put daughter in bed at 8-9 PM TIB of 8 hours = 12 AM to 8 AM with alarm Begin to utilize bright light therapy in AM for 30-60 minutes Naps - historically 2-4 hours - discussed reducing nap time to 60-90 minutes with alarm Resume tracking sleep timing using sleep diaries Pt met with Dr. Wilkinson for follow up on 07/20/24: per this visit Bedtime: 11-12 PM and 1 hour to sleep Wake up Time : 9:45 AM -4AM awakening will try to fall back asleep but if doesn't then is awake till 9:45 AM Number of times patient wakes up per night: 1-2x per night to urinate and takes about 3 hours to fall back asleep or wont sleep Estimated total sleep time (in a 24 hour period of time): 7 hours very rarely Naps : No PLAN: INSOMNIA -Current treatment: CBTI -Dr. Lazo it was recommended she complete a sleep diary, sleep restriction, light therapy in the a.m. some of these changes which she has still to incorporate into her routine. RLS -Nonmedical therapy for restless legs syndrome includes: cold/warm compresses, warm/hot baths or showers, gentle massage, mild leg stretching at nighttime. -Advised patient to continue taking ferritin and vitamin C -Patient's ferritin below 75 was last checked yesterday At today's visit, pt reported that she was not able to fill out sleep diaries because the online system was not working - reset sleep diaries so pt could resume use. Advised her to message me if she has issues with it moving forward. Sleep is about the same as last time - noted that her general therapist mentioned she seems to be managing depressive symptoms right now and recommended she complete some deep breathing, adult coloring. She feels that she does experiences lack of motivation to do things as much as she normally does. Has been feeling overwhelmed and is not sure why. Stated her counselor told her it is a light depression and recommended behavioral activation with pleasurable activities. I encouraged this as well. Average recent sleep parameters Bed time = 11:00 PM to 12:00 AM KATERIN = 1-2 hours, previously 3-4 hours Wake time = 4:00 to 5:00 AM - will go on phone Out of bed time = 9:30-9:45 AM Not using BLT in AM Previously was getting ~7 hours of sleep, now closer to 4-5 hours No napping recently - lays down for 2-3 hours during the day but doesn't fall asleep Thinks that her daughter starting school back may have disrupted sleep schedule Spends daytime running errands, doing appointments while daughter is at school Discussed possibility of using melatonin to help anchor pt's sleep rhythms - will consult with providers to see if this is safe for pt in . Pt also interested to see if magnesium is safe to use. Update on medication use: Unisom Behavioral changes made since last session: no new changes Pt did not complete sleep logs, sleep quality verbally reviewed in session. ASSESSMENT: CRICKET: not completed today Insomnia Severity Index Total Score: 27 [22-28 = Clinical insomnia (severe)] 04/13/2024 05/23/2024 07/08/2024 Insomnia Severity Index Score 24 25 27 PHQ: not completed today PHQ-9 Score: 12 [10-14 = Moderate Depression] not at all on item #9 04/13/2024 05/23/2024 07/08/2024 PHQ-9 Score 19 12 12 ABHILASH: not completed today ABHILASH-7 Total Score: 13 [10-14 = Moderate Anxiety] 04/02/2023 03/19/2024 04/13/2024 ABHILASH - 7 SCORES Score 6 13 13 DIAGNOSIS: Chronic Insomnia Adjustment disorder with mixed anxiety and depressed mood Trauma and stressor-related disorder RLS Multiple sclerosis PROGRESS TO DATE: [facility]fp Progress: Condition at intake Short Term Condition: Condition at intake GOALS/OBJECTIVES/INTERVENTIONS: updated as necessary on July 30, 2024 1. Continue with CBTI 2. Begin tracking sleep, medication use, and anything that may have impacted sleep (+/-) on sleep logs. 3. Engage in stimulus control (e.g., out of bed if not asleep for 20-30+ minutes, engage in a pleasant activity until feel sleepy (more content not included)... [facility] 07-20-2024 Instructions Germania Wilkinson MD - 07/20/2024 11:51 AM EDT Discussed the association of iron deficiency with restless leg syndrome. Recommend taking iron and vitamin C supplements. - Avoid caffeine intake as this can [...] blocking antiemetics (eg. Reglan), centrally acting antihistamines Discussed about sleep hygiene and stimulus control. Discussed hyperarousal state and underlying causes of insomnia. Sleep Hygiene TIPS FOR A BETTER NIGHT [...] regularly but not within 4 hours of bedtime. documented in this encounter [facility] 07-20-2024 Note HNO ID: [id number] Author: GERMANIA WILKINSON MD Service: ? Author Type: Physician Type: Progress Notes Filed: 07/21/2024 15:38 Note Text: [facility] Follow up/ Established patient visit Date of last visit : 08/19/2023 I have communicated my name and active licensure. The patient's identity and physical location were verified at the time of this visit. Either the patient or their legal human resources hr representative has been informed of the risks and benefits of -- and alternatives to -- treatment through a remote evaluation and consents to proceed with the evaluation remotely. Interval history : Carol Ann Martinez is a 38 year old female with hx of MS and WINIFRED here for evaluation of insomnia, RLS. Sleep-related history: Patient is currently 25w gestation. For her insomnia she is taking Unisom OTC. Did not receive iron for about 2 months, but now has been taking it twice a day. RLS bothering her in the day time too and night time. Previous Studies 06/16/24: Actigraphy: Patient sleep diary does match with actigraphy recording and demonstrates long sleep latency times Patient had an averaged sleep time of 7.3 hours per night. Estimated sleep efficiency was reduced ( 83 %). 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 07/01/24 HSAT ERMA .4 INSOMNIA Current treatment : Doing CBTI and Unisom OTC Status : same Prior meds trailed: Trazodone 50 mg - stopped due to Melatonin 3 mg - mild improvement Tried OTC meds in past- unisom worked the best Benadryl, Ambien, trazodone, temazepam, doxepin, Lunesta RLS Current treatment : Iron Status : same SLEEP HYGIENE QUESTIONS: Bedtime : 11-12 PM and 1 hour to sleep Wake up Time : 9:45 AM -4AM awakening will try to fall back asleep but if doesn't then is awake till 9:45 AM Number of times patient wakes up per night : 1-2x per night to urinate and takes about 3 hours to fall back asleep or wont sleep Estimated total sleep time ( in a 24 hour period of time) : 7 hours very rarely Naps : No PATIENT-ENTERED QUESTIONNAIRE SLEEP SCORES 07/20/2024 Sleep Questions Reason for visit: Difficulty falling or staying asleep or poor sleep quality Excessive daytime sleepiness Narcolepsy Abnormal sleep/wake timing Abnormal behaviors/movements during sleep Multiple values from one day are sorted in reverse-chronological order 04/13/2024 05/23/2024 07/08/2024 [place] Sleepiness Scale Score 0 (No clinically significant daytime sleepiness) 0 (No clinically significant daytime sleepiness) 0 (No clinically significant daytime sleepiness) 04/13/2024 05/23/2024 07/08/2024 PROMIS CAT Sleep Disturbance PROMIS Sleep Disturbance T-Score 68 (moderate) 65 (moderate) 74 (severe) PROMIS Sleep Disturbance Percentile 4 7 1 04/13/2024 05/23/2024 07/08/2024 Insomnia Severity Index Score 24 25 27 04/13/2024 05/23/2024 07/08/2024 Restless Leg Syndrome Score 22 (Severe symptoms) 29 (Severe symptoms) 25 (Severe symptoms) 04/13/2024 05/23/2024 07/08/2024 PHQ-9 Score 19 12 12 01/21/2024 04/13/2024 07/08/2024 PROMIS Global Health - (T-Scores - the mean of general population = 50. Five points is a clinically meaningful difference.) Physical T-Score 29.6 29.6 29.6 Mental T-Score 38.8 38.8 36.3 PMH, PSH, SH: Reviewed SLEEP RELATED ROS Review of Systems Constitutional: Positive for fatigue. Respiratory: Negative for difficulty breathing. Cardiovascular: Negative for chest pain. Musculoskeletal: Positive for uncomfortable leg sensations. ALLERGIES Allergen Reactions Gluten Other: See Comments, [...] Vomiting More constipated More constipated CURRENT MEDICATIONS: mometasone (ELOCON) 0.1 % cream Apply to affected area once daily. amoxicillin (AMOXIL) 875 mg tablet Take 1 tablet by mouth two times a day for 10 days. glatiramer (COPAXONE) 40 mg/mL injection Inject 40 [...] shampoo 2-3 times weekly as body wash Norethindrone, Contraceptive, 0.35 mg tablet Take 0.35 mg by mo (more content not included)... [facility] 07-20-2024 History of Present illness Narrative Images from the original note were not included. [facility] Follow up/ Established patient visit Date of last visit : 08/19/2023 I have communicated my name and active licensure. The patient's identity and physical location were verified at the time of this visit. Either the patient or their legal human resources hr representative has been informed of the risks and benefits of -- and alternatives to -- treatment through a remote evaluation and consents to proceed with the evaluation remotely. Interval history : Carol Ann Martinez is a 38 year old female with hx of MS and WINIFRED here for evaluation of insomnia, RLS. Sleep-related history: Patient is currently 25w gestation. For her insomnia she is taking Unisom OTC. Did not receive iron for about 2 months, but now has been taking it twice a day. RLS bothering her in the day time too and night time. Previous Studies 06/16/24: Actigraphy: Patient sleep diary does match with actigraphy recording and demonstrates long sleep latency times Patient had an averaged sleep time of 7.3 hours per night. Estimated sleep efficiency was reduced ( 83 %). 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 07/01/24 HSAT ERMA .4 INSOMNIA Current treatment : Doing CBTI and Unisom OTC Status : same Prior meds trailed: Trazodone 50 mg - stopped due to Melatonin 3 mg - mild improvement Tried OTC meds in past- unisom worked the best Benadryl, Ambien, trazodone, temazepam, doxepin, Lunesta RLS Current treatment : Iron Status : same SLEEP HYGIENE QUESTIONS: Bedtime : 11-12 PM and 1 hour to sleep Wake up Time : 9:45 AM -4AM awakening will try to fall back asleep but if doesn't then is awake till 9:45 AM Number of times patient wakes up per night : 1-2x per night to urinate and takes about 3 hours to fall back asleep or wont sleep Estimated total sleep time ( in a 24 hour period of time) : 7 hours very rarely Naps : No PATIENT-ENTERED QUESTIONNAIRE SLEEP SCORES 07/20/2024 Sleep Questions Reason for visit: Difficulty falling or staying asleep or poor sleep quality Excessive daytime sleepiness Narcolepsy Abnormal sleep/wake timing Abnormal behaviors/movements during sleep Multiple values from one day are sorted in reverse-chronological order 04/13/2024 05/23/2024 07/08/2024 [place] Sleepiness Scale Score 0 (No clinically significant daytime sleepiness) 0 (No clinically significant daytime sleepiness) 0 (No clinically significant daytime sleepiness) 04/13/2024 05/23/2024 07/08/2024 PROMIS CAT Sleep Disturbance PROMIS Sleep Disturbance T-Score 68 (moderate) 65 (moderate) 74 (severe) PROMIS Sleep Disturbance Percentile 4 7 1 04/13/2024 05/23/2024 07/08/2024 Insomnia Severity Index Score 24 25 27 04/13/2024 05/23/2024 07/08/2024 Restless Leg Syndrome Score 22 (Severe symptoms) 29 (Severe symptoms) 25 (Severe symptoms) 04/13/2024 05/23/2024 07/08/2024 PHQ-9 Score 19 12 12 01/21/2024 04/13/2024 07/08/2024 PROMIS Global Health - (T-Scores - the mean of general population = 50. Five points is a clinically meaningful difference.) Physical T-Score 29.6 29.6 29.6 Mental T-Score 38.8 38.8 36.3 PMH, PSH, SH: Reviewed SLEEP RELATED ROS Review of Systems Constitutional: Positive for fatigue. Respiratory: Negative for difficulty breathing. Cardiovascular: Negative for chest pain. Musculoskeletal: Positive for uncomfortable leg sensations. ALLERGIES Allergen Reactions Gluten Other: See Comments, [...] Vomiting More constipated More constipated CURRENT MEDICATIONS: mometasone (ELOCON) 0.1 % cream Apply to affected area once daily. amoxicillin (AMOXIL) 875 mg tablet Take 1 tablet by mouth two times a day for 10 days. glatiramer (COPAXONE) 40 mg/mL injection Inject 40 [...] shampoo 2-3 times weekly as body wash Norethindrone, Contraceptive, 0.35 mg tablet Take 0.35 mg by mouth. (Patient not taking: Reported on 12/25/2023) vitamin B complex with C-FA-CU-ZN renal vitamins (DIATX ZN) 5-1.5-25 mg tab Take by mouth every 24 hours. FERROUS SULFATE ORAL Take by mouth every 24 hours. multivitamin with minerals (MULTIPLE VITAMIN-MINERALS) tablet Take 1 tablet by mouth every 24 hours. Norethindrone, Contraceptive, (JENCYCLA) 0.35 mg tablet Take [...] VITAMIN B COMPLEX ORAL Take by mouth. fluticasone (FLONASE) 50 mcg/actuation nasal spray Use 1 Langley in each nostril once daily. PHYSICAL EXAMINATION: NEUROLOGICAL EXAM: General: Awake, alert, speech fluent, comprehension, naming, repetition intact. Short and half-way memory intact. IMPRESSION: Primary insomnia (primary encounter diagnosis) Rls (restless legs syndrome) Carol Ann Martinez is a 38 year old female with hx of MS and WINIFRED here for evaluation of insomnia, RLS. She is currently and has come off of trazodone for her insomnia. She is currently taking emnw-tlf-kyltkvq Unisom without much benefit. Her sleep is very disturbed she has trouble with sleep onset as well as maintenance. Results from her actigraphy and HSAT were reviewed at today's visit. Due to her likely will not start any medications at this visit. Clinical Global Impression of Change ( CGI-C) Compared to the patient's condition at baseline, how much has the patient changed? No change PLAN: INSOMNIA -Current treatment : CBTI -Dr. Lazo it was recommended she complete a sleep diary, sleep restriction, light therapy in the a.m. some of these changes which she has still to incorporate into her routine. RLS -Nonmedical therapy for restless legs syndrome includes : cold/warm compresses, warm/hot baths or showers, gentle massage, mild leg stretching at nighttime. -Advised patient to continue taking ferritin and vitamin C -Patient's ferritin below 75 was last checked yesterday Nyasia Melendez MD Attending Note I evaluated the patient and personally participated in the salazar components. I agree with the fellow's findings and plan as documented and have discussed the case and management of the patient's care with the fellow. Recommend to take vitamin C and iron Follow up with [facility] for CBTi Germania Wilkinson MD Clinical Kelp Cutteranimal ride manager [facility] documented in this encounter [facility] 07-19-2024 Note HNO ID: [id number] Author: JANICE LANE MD Service: ? Author Type: Physician Type: Progress Notes Filed: 07/19/2024 12:49 Note Text: SUBJECTIVE: Chief Complaint: Carol Ann Martinez is a 38 year old female who presents for a comprehensive problem evaluation. Patient is and due in October. She said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 Affect: Normal RESULTS: - [facility] 04/02/24 A1c (5.2), CBC diff [...] Cervical spine enhancing lesions None 01/02/2023 ASSESSMENT: Carol Ann Martinez is a 38 year old female [...] and OB - Will reach out to [facility] re: finances/resources - Follow up soon after deliver No orders found for this visit on 06/09/24. I spent a total of 40 minutes on the date of the service which included preparing to see the patient, [id number] patient care, completing clinical documentation, obtaining and/or reviewing separately obtained history, performing a medically appropriate examination, counseling and educating the patient/family/caregiver, communicating with other HCPs (not separately reported), independently interpreting results (not separately reported), and communicating results to the patient/family/caregiver. Tor Hernandez APRN.CNP [facility] Multiple Sclerosis documented in this encounter [facility] 06-09-2024 Note HNO ID: [id number] Author: TOR HERNANDEZ APRN.TOY ASSEMBLER WOOD Service: ? Author Type: Nurse Practitioner Type: Progress Notes Filed: 06/09/2024 15:43 Note Text: [facility] FOLLOWUP/ESTABLISHED VIRTUAL PATIENT VISIT PRINCIPAL NEUROLOGIC DIAGNOSIS: Multiple Sclerosis DISEASE SUMMARY Date of onset: 03/2007 Date of diagnosis of MS: 03/2007 Disease course at onset: Relapsing-Remitting Current disease course: Progressive without relapses Previous disease therapies: - Betaseron 3146-8505 - Copaxone 9675-2487 - Tysabri 2009-Summer 2019 (stopped due to [...] over 3 weeks following occipital relase - 5240-1422 recurrent OS ON - 6939-4839 several relapses including L numbness, weakness, constipation, urinary urgency - 2019 R weakness and numbness needing a wheelchair, hospitalized at [facility] (off Tysabri x3 months due to planning ). Also had OD vision loss at this time. At this time also notes substantial mold exposure due to it being all over her apt (has since moved). CHIEF COMPLAINT: MS symptom management Usual treating team: Christina Today's visit is being completed virtually over [employer]. I have communicated my name and active licensure. The patient's identity and physical location were verified at the time of this visit. Either the patient or their legal human resources hr representative has been informed of the risks [...] Work from 01/21/2024 in [facility] Office Visit from 07/23/2023 in [facility] Office Visit from 01/17/2023 in [facility] Upper Extremity Domain T Score 28 [...] Work from 01/21/2024 in [facility] Office Visit from 07/23/2023 in [facility] Office Visit from 01/17/2023 in [facility] Sleep Domain T Score 66 69.2 [...] , currently pregna (more content not included)... [facility] 06-08-2024 Instructions Germania Wilkinson MD - 06/08/2024 [...] is done to review results. - Call [phone] to schedule your sleep study and follow [...] the central scheduling system for the [facility] at [phone]. [facility] website: [email or web address] documented in this encounter [facility] 06-08-2024 Note HNO ID: [id number] Author: GERMANIA WILKINSON MD Service: ? Author Type: Physician Type: Progress Notes Filed: 07/05/2024 23:04 Note Text: [facility] Follow up/ Established patient visit Date of last visit : 08/19/2023 I have communicated my name and active licensure. The patient's identity and physical location were verified at the time of this visit. Either the patient or their legal human resources hr representative has been informed of the risks [...] Syndrome Abnormal sleep/wake timing 03/19/2024 04/13/2024 05/23/2024 [place] Sleepiness Scale Score 0 (No clinically significant [...] (FLONASE) 50 mcg/actuation nasal spray Use 1 Langley in each nostril once daily. Prior Hypersomnia/Narcolepsy [...] DAILY PRN ORAL Details Outpatient prescription Medication renetta (more content not included)... [facility] 06-08-2024 History of Present illness Narrative Images from the original note were not included. [facility] Follow up/ Established patient visit Date of last visit : 08/19/2023 I have communicated my name and active licensure. The patient's identity and physical location were verified at the time of this visit. Either the patient or their legal human resources hr representative has been informed of the risks [...] Syndrome Abnormal sleep/wake timing 03/19/2024 04/13/2024 05/23/2024 [place] Sleepiness Scale Score 0 (No clinically significant [...] (FLONASE) 50 mcg/actuation nasal spray Use 1 Langley in each nostril once daily. Prior Hypersomnia/Narcolepsy [...] controlled History concerning for ABHI Referred to [facility] for CBTi PLAN: - Home Sleep Apnea [...] Germania Wilkinson MD documented in this encounter [facility] 05-27-2024 Note HNO ID: [id number] Author: IBAN LAZO, PhD Service: ? Author Type: Psychologist Type: Progress Notes Filed: 05/27/2024 18:02 Note Text: Behavioral Sleep Medicine Follow up Iban Lazo, PhD I have communicated my name and active licensure. The patient's identity and physical location were verified at the time of this visit. Either the patient or their legal human resources hr representative has been informed of the risks and benefits of -- and alternatives to -- treatment through a remote evaluation and consents to proceed with the evaluation remotely. 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 Patient Confirmed Telephone #: [phone] Time: 33 minutes Individual Psychotherapy Session # [...] a vehicle not in her burns range[facility]. She stated that she does not know [...] to avoid driving if sleepy/drowsy and to felt puller to a safe space to rest if she does find herself drowsy/sleepy while driving. Pt noted that her MATTRESS AND FOUNDATION SEWER stated she could take Unisom to sleep during - asked pt to wait to take this medication until after she completes actigraphy testing as we want to get a sense of her baseline sleep rhythms. Pt verbalized understanding. Pt reported that sleep quality has been the same. Pt stated that she is working with a therapist at [facility] named Aravind Retana- she reported that they most recently have talked about helping her to stop shopping and learning how to say no to people. Pt provided verbal consent for this provider to contact Aravind Retana to discuss pt's case to coordinate care and provided his contact phone number: [phone] Discussed the following plan with patient Complete [...] disorder RLS Multiple sclerosis PROGRESS TO DATE: Corporate Strategy Intern Progress: Condition at intake Short Term Condition: [...] to start Uniso (more content not included)... [facility] 05-25-2024 Note HNO ID: [id number] Author: ?, ?, ? Service: ? Author Type: ? Type: Progress Notes Filed: 06/14/2024 14:32 Note Text: ACTIGRAPHY DEVICE #[id number] Date shipped out 05/25/2024 [employer] MAIL OUT TRACKING NUMBER [id number] [employer] RETURN TRACKING NUMBER [id number] Ann [facility] 05-24-2024 History of Present illness Narrative [facility] [...] laboratory parameters, disease state markers and outcomes. Order Management Specialist Assessment Patient confirmed: Yes Med/dose confirmed: Yes Supplies needed: Alcohol swabs Missed doses: No Estimated days supply on hand: 10 Next cycle/dose due: 05/26/24 Copay amount: 0 Delivery method: FedEx Signature required: Waived on patient request Delivery address: [facility] Ervin [address] [address] Delivery date: 06/01/24 Questions or concerns for the pharmacist?: No Did you have any side effects believed to be related to this medication, that resulted in hospitalization?: No Current Outpatient Medications on File Prior to Visit Medication Sig glatiramer (COPAXONE) 40 mg/mL injection Inject 40 mg subcutaneously every Bjorn, Friday, and Friday. magnesium oxide (MAG-OX) 400 [...] (FLONASE) 50 mcg/actuation nasal spray Use 1 Langley in each nostril once daily. No current facility-administered medications on file prior to visit. [facility] Visit Assessment - Neurology: Assessment [...] inject where skin looks healthy. Training video ([employer] no longer supplies nurses for training, or injection devices) PFS supplied and training video [email or web address]://www.[employer]/injectio n-assistance/ybs-cj-shkpig DDI none pertinent Vaccines reviewed Jus Saucedo CPhT Neurology, Cardiology & Infectious Disease [facility] documented in this encounter [facility] 05-24-2024 Note HNO ID: [id number] Author: MARCIN ERVIN RPh Service: ? Author Type: ? [...] laboratory parameters, disease state markers and outcomes. Marcin Ervin, DevonteD Pharmacist, [facility] Specialty Referral Management Liaison Assessment Patient confirmed: Yes Med/dose confirmed: Yes Supplies needed: Alcohol swabs Missed doses: No Estimated days supply on hand: 10 Next cycle/dose due: 05/26/24 Copay amount: 0 Delivery method: FedEx Signature required: Waived on patient request Delivery address: Latisha Adams [address] [place] [address] Delivery date: 06/01/24 Questions or concerns for [...] (FLONASE) 50 mcg/actuation nasal spray Use 1 Langley in each nostril once daily. No current facility-administered medications on file prior to visit. [facility] Visit Assessment - Neurology: Assessment [...] inject where skin looks healthy. Training video ([employer] no longer supplies nurses for training, or injection devices) PFS supplied and training video https://www.[employer]/injectio n-assistance/nny-lb-vblxfo DDI none pertinent Vaccines reviewed Refill Assessment: Assessment of injection issues or necrosis at injection sites: Yes Screening for infection: Yes Adverse reactions and mitigation: Yes Drug specific assessments, as appropriate: Yes Additional Assessment: S/Sx of relapse: No S/Sx of progression to secondary progressive disease: No (more content not included)... [facility] 05-10-2024 Note HNO ID: [id number] Author: IBAN LAZO, PhD Service: ? Author Type: Psychologist Type: Progress Notes Filed: 05/10/2024 14:16 Note Text: Appointment canceled. Pt logged on to visit but was located in a public setting and in the state of [place]. Explained that due to psychology licensure laws I cannot meet with patients unless they are physically located within the state of [place]. Pt stated she is returning to [place] on Wednesday 05/16. Next visit scheduled for 05/27. Iban Lazo, PhD, Psychologist ([place] license [id number]) [facility] 04-26-2024 History of Present illness Narrative [facility] [...] laboratory parameters, disease state markers and outcomes. Order Management Specialist Assessment Patient confirmed: Yes Med/dose confirmed: Yes Supplies needed: No supplies needed Missed doses: Yes Count of missed doses: 1 Reason for missed doses: stated medication misfired Estimated days supply on hand: 4 Next cycle/dose due: 04/26/24 Copay amount: 0 Payment confirmed: Yes Delivery method: FedEx Signature required: Waived on patient request Delivery address: [address] [place] [id number] Delivery date: 04/28/24 Questions or concerns for [...] (FLONASE) 50 mcg/actuation nasal spray Use 1 Langley in each nostril once daily. No current facility-administered medications on file prior to visit. [facility] Visit Assessment - Neurology: Assessment [...] inject where skin looks healthy. Training video ([employer] no longer supplies nurses for training, or injection devices) PFS supplied and training video [email or web address]://www.[employer]/injectio n-assistance/xyp-vd-vwipbq DDI none pertinent Vaccines reviewed Jazmine Mcclure CPhT Cardiology, Neurology & Infectious Disease [facility] documented in this encounter [facility] 04-26-2024 Note HNO ID: [id number] Author: MARCIN ERVIN RPh Service: ? Author Type: ? [...] laboratory parameters, disease state markers and outcomes. Marcin Ervin, PharmD Pharmacist, [facility] Specialty Referral Management Liaison Assessment Patient confirmed: Yes Med/dose confirmed: Yes Supplies needed: No supplies needed Missed doses: Yes Count of missed doses: 1 Reason for missed doses: stated medication misfired Estimated days supply on hand: 4 Next cycle/dose due: 04/26/24 Copay amount: 0 Payment confirmed: Yes Delivery method: FedEx Signature required: Waived on patient request Delivery address: [address] [place] [address] Delivery date: 04/28/24 Questions or concerns for [...] (FLONASE) 50 mcg/actuation nasal spray Use 1 Langley in each nostril once daily. No current facility-administered medications on file prior to visit. [facility] Visit Assessment - Neurology: Assessment [...] inject where skin looks healthy. Training video ([employer] no longer supplies nurses for training, or injection devices) PFS supplied and training video https://www.[employer]/injectio n-assistance/bxq-uh-cbzurj DDI none pertinent Vaccines reviewed Refill Assessment: Assessment of injection issues or necrosis at injection sites: Yes Screening for infection: Yes Adverse reactions and mitigation: Yes Drug specific assessments, as appropriate: Yes Additional Assessment: Current MPR%: 100 S/Sx of relapse: No S/Sx of progression to secondary progressive disease: (more content not included)... [facility] 04-20-2024 Note HNO ID: [id number] Author: IBAN LAZO, PhD Service: ? Author Type: Psychologist Type: Progress Notes Filed: 04/21/2024 12:27 Note Text: Behavioral Sleep Medicine Follow up Iban Lazo, PhD I have communicated my name and active licensure. The patient's identity and physical location were verified at the time of this visit. Either the patient or their legal human resources hr representative has been informed of the risks and benefits of -- and alternatives to -- treatment through a remote evaluation and consents to proceed with the evaluation remotely. Contact Method: Zoom Patient Confirmed Address: [address] [place] [id number] Patient Confirmed Telephone #: [phone] Time: 45 minutes Individual Psychotherapy Session # [...] disorder RLS Multiple sclerosis PROGRESS TO DATE: Corporate Strategy Intern Progress: Condition at intake Short Term Condition: [...] team members. 6. (more content not included)... [facility] 03-31-2024 History of Present illness Narrative [facility] received prescription(s) for Glatiramer from Dr. Tor Hernandez office. Benefits investigation was conducted, indicating we will need to call to verify if a prior authorization is required/needed by pt's plan with Sherri Santana CPhT (Dee) [employer] Neurology/Cardiology/Infections Disease [facility] P: F: [place] for pt's Glatiramer has been approved by [employer]. Alexis 03/31/24 - 11/09/24. [place] [facility] Referral Management Liaison, Specialty Pharmacy [facility] [address] / [id number] [place] [address] Email: [email or web address] documented in this encounter [facility] 03-31-2024 Note HNO ID: [id number] Author: NATALIE NEWBERRY [facility] Service: ? Author Type: Pharmacist Type: Progress Notes Filed: 04/08/2024 11:37 Note Text: [facility] received prescription(s) for Glatiramer from Dr. Warren's office. Benefits investigation was conducted, indicating that a prior authorization is required. PA was approved with details listed below: Plan Name: Sherri GRIGGS reference number: [id number] Approval Dates: 03/31/24 to 11/09/24 Pt's copay [...] MD No Neurogenic bladder 07/14/2020 Nikole Moe APRN.TOY ASSEMBLER WOOD No Overview Signed 04/17/2021 7:30 AM by Nikole Moe APRN.TOY ASSEMBLER WOOD On most recent creatinine was normal. Will obtain renal ultrasound at her convenience to assess for any upper tract changes On most recent creatinine was normal. Will obtain renal ultrasound at her convenience to assess for any upper tract changes Chronic insomnia 01/04/2020 Iesha Pearson MD No Multiple sclerosis (HCC) 11/15/2019 Nidia Garcia MD No Optic neuritis 08/21/2019 Nikole Moe APRN.TOY ASSEMBLER WOOD No Overview Signed 04/17/2021 7:30 AM by Nikole Moe APRN.TOY ASSEMBLER WOOD Start Date: 03/2009 Start Date: 03/2009 Bilateral hearing loss 07/14/2018 Nikole Moe APRN.TOY ASSEMBLER WOOD No Ovarian cyst, complex 04/14/2018 Nikole Moe APRN.TREE No Ovarian torsion 04/14/2018 Nikole Moe APRN.TOY ASSEMBLER WOOD No Restless leg syndrome 07/28/2017 Nikole Moe APRN.TOY ASSEMBLER WOOD No Cognitive communication deficit 07/22/2022 Amina Vazquez, 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 07/17/[address] MD Costochondritis, acute 04/17/2021 Nikole Moe, MORTGAGE COUNSELOR.TOY ASSEMBLER WOOD 04/20/2021 Nikole Moe, MORTGAGE COUNSELOR.TOY ASSEMBLER WOOD Edema of lower extremity 04/17/2021 Nikole Moe, MORTGAGE COUNSELOR.TOY ASSEMBLER WOOD 04/20/2021 Nikole Moe, MORTGAGE COUNSELOR.TOY ASSEMBLER WOOD Hypoglycemia 03/07/2021 Nikole Moe, MORTGAGE COUNSELOR.TOY ASSEMBLER WOOD 07/17/[address] MD NO SHOW 01/22/2021 Lala Forman, DO 04/17/2021 Nikole Moe, MORTGAGE COUNSELOR.TOY ASSEMBLER WOOD Encounter for induction of labor 01/08/2021 Subha [...] 01/11/2021 Jo-Ann Aragon MD Constipation 10/06/2019 Nikole Moe, MORTGAGE COUNSELOR.TOY ASSEMBLER WOOD 07/17/[address] MD Gait difficulty 10/06/2019 Nikole Moe, MORTGAGE COUNSELOR.TOY ASSEMBLER WOOD 07/17/[address] MD Cognitive complaints 03/03/2019 Nikole Moe APRN.TOY ASSEMBLER WOOD 07/17/[address] MD Syncope and collapse 12/04/2018 Nikole Moe APRN.TOY ASSEMBLER WOOD 07/17/[address] MD Obstructive sleep apnea 07/28/2017 Payal, (more content not included)... [facility] 03-31-2024 Note HNO ID: [id number] Author: ?, ?, ? Service: ? Author Type: ? Type: Progress Notes Filed: 03/31/2024 10:57 Note Text: [facility] received prescription(s) for Glatiramer from Dr. Tor Hernandez office. Benefits investigation was conducted, indicating we will need to call to verify if a prior authorization is required/needed by pt's plan with Sherri . Thang Santana CPhT (Dee) Lead [facility] Neurology/Cardiology/Infections Disease [facility] P: F: [facility] 03-31-2024 Note HNO ID: [id number] Author: ?, ?, ? Service: ? Author Type: ? Type: Progress Notes Filed: 03/31/2024 12:24 Note Text: PA for pt's Glatiramer has been approved by Sherri. Reuben 03/31/24 - 11/09/24. Madison Puente [facility] Referral Management Liaison, Specialty Pharmacy [facility] [address] / [id number] [place] [address] Email: [email or web address] [facility] 03-30-2024 Note HNO ID: [id number] Author: ROXY HOGAN PSYD Service: ? Author Type: Resident Type: Progress Notes Filed: 04/01/2024 10:51 Note Text: [facility] CBT-Initiate Virtual Group March 30, 2024 Time: 3-4:05pm [id number]: Virtual Group Psychotherapy Providers: Teo I have communicated my name and active licensure. The patient's identity and physical location were verified at the time of this visit. Either the patient or their legal human resources hr representative has been informed of the risks [...] transcribed by Iris Yoon, PhD BSM Fellow [facility] 03-30-2024 Note HNO ID: [id number] Author: CLARICE ZEPEDA HUC Service: ? Author Type: Health Manager Truck Type: Progress Notes Filed: 03/30/2024 14:55 Note Text: Faxed Glatiramer Acetate form with ins info [facility] 03-30-2024 History of Present illness Narrative Faxed Glatiramer Acetate form with ins info documented in this encounter [facility] 03-30-2024 Instructions Tor Hernandez APRN.TOY ASSEMBLER WOOD - 03/30/2024 2:27 PM EDT PLAN: - Stop Ocrevus for now - Will hold on further MRI monitoring for now - Will submit for Copaxone during - Stop Ampyra and tizanidine - Continue vitamin D and magnesium - Follow up in 8-9 months virtually documented in this encounter [facility] 03-30-2024 History of Present illness Narrative Images from the original note were not included. [facility] FOLLOWUP/ESTABLISHED VIRTUAL PATIENT VISIT PRINCIPAL NEUROLOGIC DIAGNOSIS: Multiple Sclerosis DISEASE SUMMARY Date of onset: 03/2007 Date of diagnosis of MS: 03/2007 Disease course at onset: Relapsing-Remitting Current disease course: Progressive without relapses Previous disease therapies: - Betaseron 4843-3415 - Copaxone - Tysabri 2009-Summer 2019 (stopped [...] over 3 weeks following occipital relase - 7515-4006 recurrent OS ON - 2917-5125 several relapses including L numbness, weakness, constipation, urinary urgency - 2019 R weakness and numbness needing a wheelchair, hospitalized at [facility] (off Tysabri x3 months due to planning ). Also had OD vision loss at this time. At this time also notes substantial mold exposure due to it being all over her apt (has since moved). CHIEF COMPLAINT: Follow up, discussion on recent + Usual treating team: Esther/David Today's visit is being completed virtually over [employer]. I have communicated my name and active licensure. The patient's identity and physical location were verified at the time of this visit. Either the patient or their legal human resources hr representative has been informed of the risks [...] to that Is trying to find a dolphin trainer as she knows she needs to improve her strength Last took Copaxone and felt good Would like to continue Copaxone again this - will need her home improvement advisor to administer injections Does plan to breastfeed after this Recalls her MS symptoms were stable until ~ 3 months pp Neuro-QoL Functions (higher=better functioning) Flowsheet Row Social Work from 01/21/2024 in [facility] Office Visit from 07/23/2023 in [facility] Office Visit from 01/17/2023 in [facility] Upper Extremity Domain T Score 28 [...] Work from 01/21/2024 in [facility] Office Visit from 07/23/2023 in [facility] Office Visit from 01/17/2023 in [facility] Sleep Domain T Score 66 69.2 [...] in prior , currently , HIV infection ([facility]), Hypertension, Infertility, female, Liver disease, [...] Visit from 07/23/2023 in [facility] Office Visit from 01/17/2023 in [facility] Processing Speed Total Number Correct 52 [...] Cervical spine enhancing lesions None 01/02/2023 ASSESSMENT: Carol Ann Martinez is a 38 year old female [...] D supplementation Follow-up: In 9 months at [place] or Virtual Visit with [facility] APC I spent a total of 40 minutes on the date of the service which included preparing to see the patient, [id number] patient care, completing clinical documentation, obtaining and/or reviewing separately obtained history, performing a medically appropriate examination, counseling and educating the patient/family/caregiver, and ordering medications, tests, or procedures. Tor Hernandez APRN.TREE [facility] for Multiple Sclerosis documented in this encounter [facility] 03-30-2024 Note HNO ID: [id number] Author: TOR HERNANDEZ APRN.TREE Service: ? Author Type: Nurse Practitioner Type: Progress Notes Filed: 03/30/2024 14:27 Note Text: [facility] FOLLOWUP/ESTABLISHED VIRTUAL PATIENT VISIT PRINCIPAL NEUROLOGIC DIAGNOSIS: Multiple Sclerosis DISEASE SUMMARY Date of onset: 03/2007 Date of diagnosis of MS: 03/2007 Disease course at onset: Relapsing-Remitting Current disease course: Progressive without relapses Previous disease therapies: - Betaseron 3228-3122 - Copaxone 5225-2175 - Tysabri 2009-Summer 2019 (stopped due to [...] over 3 weeks following occipital relase - 3837-1212 recurrent OS ON - 8981-8831 several relapses including L numbness, weakness, constipation, urinary urgency - 2019 R weakness and numbness needing a wheelchair, hospitalized at [facility] (off Tysabri x3 months due to planning ). Also had OD vision loss at this time. At this time also notes substantial mold exposure due to it being all over her apt (has since moved). CHIEF COMPLAINT: Follow up, discussion on recent + Usual treating team: Christina Today's visit is being completed virtually over [employer]. I have communicated my name and active licensure. The patient's identity and physical location were verified at the time of this visit. 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[employer] [address] [place] [address] [facility] [address] [address] Referral ID Status Reason Start Date Expiration Date Visits Requested Visits Authorized [id number] Pending Review Auto-Generat ed Referral 02/26/2024 02/25/2025 1 1 Specialty Diagnoses / Procedures Referred By Contac t Referred To Contact [facility] Diagnoses Right hip pain Multiple sclerosis (HCC) Procedures CONSULT TO PHYSICAL THERAPY PHYSICAL THERAPY EVALUATION HIGH COMPLEX [address] MD [address] [place] [address] [facility] [place] [address] [place] [address] Referral ID Status Reason Start Date Expiration Date Visits Requested Visits Authorized [id number] Authorized Auto-Generat ed Referral 11/10/2023 11/09/2024 1 1 Specialty Diagnoses / Procedures Referred By Contac t Referred To Contact [facility] Diagnoses Vasovagal syncope Procedures ECG COMPLETE ECG ROUTINE ECG W/LEAST 12 LDS W/I&R Janice Lane MD [address] [facility] [place] [address] [facility] [place] [address] [place] [address] Referral ID Status Reason Start Date Expiration Date Visits Requested Visits Authorized [id number] New Request Auto-Generat ed Referral 07/19/2024 07/19/2025 1 1 Specialty Diagnoses / Procedures Referred By Contac t Referred To Contact MR IMAGING Diagnoses Multiple sclerosis (HCC) Procedures MRI CERVICAL SPINE WO/W IVCON MRI SPINAL CANAL CERVICAL W/O & W/CONTR Nesha Covarrubias MD [address] [place] [address] Mr Imaging [address] [address] [address] Referral ID Status Reason Start Date Expiration Date V isits Requested Visits Authorized [id number] Closed Auto-Generate d Referral 02/05/2023 12/07/2023 1 1 Specialty Diagnoses / Procedures Referred By Contac t Referred To Contact MR IMAGING Diagnoses Multiple sclerosis (HCC) Procedures MRI BRAIN WO/W IVCON MRI BRAIN BRAIN STEM W/O W/CONTRAST MATERIAL Nesha Santana MD [address] [phone] Mr [facility] [place] [address] Referral ID Status Reason Start Date Expiration Date V isits Requested Visits Authorized [id number] Closed Auto-Generate d Referral 02/05/2023 12/07/2023 1 1 Specialty Diagnoses / Procedures Referred By Contac t Referred To Contact MR IMAGING Diagnoses Multiple sclerosis (HCC) Procedures MRI CERVICAL SPINE WO/W IVCON MRI SPINAL CANAL CERVICAL W/O & W/CONTR Marshall Beltrán MD, PhD [address] [place] [address] Mr Imaging [facility] Referral ID Status Reason Start Date Expiration Date V isits Requested Visits Authorized [id number] Closed Auto-Generate d Referral 07/18/2022 08/17/2022 1 1 Specialty Diagnoses / Procedures Referred By Contac t Referred To Contact MR IMAGING Diagnoses Multiple sclerosis (HCC) Procedures MRI BRAIN WO/W IVCON MRI BRAIN BRAIN STEM W/O W/CONTRAST MATERIAL Marshall Hanley MD, PhD [address] [place] [address] [facility] [place] [id number] Referral ID Status Reason Start Date Expiration Date V isits Requested Visits Authorized [id number] Closed Auto-Generate d Referral 07/18/2022 08/17/2022 1 1 Specialty Diagnoses / Procedures Referred By Contac t Referred To Contact MR IMAGING Diagnoses Multiple sclerosis (HCC) Procedures MRI THORACIC SPINE WO/W IVCON MRI SPINAL CANAL THORACIC W/O & W/CONTR MATRL Marshall Hanley MD, PhD [address] [place] [address] [facility] [place] [address] Referral ID Status Reason Start Date Expiration Date V isits Requested Visits Authorized [id number] Closed Auto-Generate d Referral 07/18/2022 08/17/2022 1 1 Specialty Diagnoses / Procedures Referred By Contac t Referred To Contact Radiology Diagnoses Encounter for supervision of normal , unspecified, unspecified trimester AMA (advanced maternal age) primigravida 35+, third trimester (HHS-HCC) Maternal care for other known or suspected poor growth, third trimester, not applicable or unspecified Multiple sclerosis affecting in third trimester (Multi) History of LEEP (loop electrosurgical excision procedure) of cervix 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 trimester (HHS-HCC) Cervical shortening affecting in third trimester Procedures US biophysical profile wo non stress testing Clarke Hu DO [address] [facility] [address], [place] [address] Referral ID Status Reason Start Date Expiration Date Visits Requested Visits Authorized [id number] Authorized Perform Procedure 08/17/2024 08/17/2025 1 1 Health Concerns Infection Onset Date Last Indicated Resolved Time COVID-19 Rule-Out 02/12/2023 02/12/2023 Additional Source Comments INFORMATION SOURCE (unrecogn ized section and content) DATE CREATED AUTHOR 10/03/[address] [facility] DATE CREATED AUTHOR AUTHOR'S ORGANIZ ATION 01/05/2021 [facility] DATE CREATED AUTHOR AUTHOR'S ORGANIZ ATION 01/05/2021 [facility] DATE CREATED AUTHOR AUTHOR'S ORGANIZ ATION 12/17/2021 [facility] DATE CREATED AUTHOR AUTHOR'S ORGANIZ ATION 03/31/2022 [facility] DATE CREATED AUTHOR AUTHOR'S ORGANIZ ATION 01/25/2023 [facility] [place] DATE CREATED AUTHOR AUTHOR'S ORGANIZ ATION 04/05/2024 [facility] DATE CREATED AUTHOR AUTHOR'S ORGANIZ ATION 08/11/2024 [facility] DATE CREATED AUTHOR AUTHOR'S ORGANIZ ATION 08/20/2024 [facility] [place] Source Comments (unrecognize d section and content) In the event this informatio n is protected by the Federal Confidentiality of Alcohol and Drug Abuse Patient Records regulations: The Federal rules restrict any use of the information to criminally investigate or prosecute any alcohol or drug abuse patient.[facility] CompanyIn the event this information is protected by the Federal Confidentiality of Alcohol and Drug Abuse Patient Records regulations: The Federal rules restrict any use of the information to criminally investigate or prosecute any alcohol or drug abuse patient.[facility] CompanyIn the event this information is protected by the Federal Confidentiality of Alcohol and Drug Abuse Patient Records regulations: The Federal rules restrict any use of the information to criminally investigate or prosecute any alcohol or drug abuse patient.[facility] CompanyIn the event this information is protected by the Federal Confidentiality of Alcohol and Drug Abuse Patient Records regulations: The Federal rules restrict any use of the information to criminally investigate or prosecute any alcohol or drug abuse patient.[facility] CompanyIn the event this information is protected by the Federal Confidentiality of Alcohol and Drug Abuse Patient Records regulations: The Federal rules restrict any use of the information to criminally investigate or prosecute any alcohol or drug abuse patient.[facility] CompanyIn the event this information is protected by the Federal Confidentiality of Alcohol and Drug Abuse Patient Records regulations: The Federal rules restrict any use of the information to criminally investigate or prosecute any alcohol or drug abuse patient.[facility] CompanyIn the event this information is protected by the Federal Confidentiality of Alcohol and Drug Abuse Patient Records regulations: The Federal rules restrict any use of the information to criminally investigate or prosecute any alcohol or drug abuse patient.[facility] CompanyIn the event this information is protected by the Federal Confidentiality of Alcohol and Drug Abuse Patient Records regulations: The Federal rules restrict any use of the information to criminally investigate or prosecute any alcohol or drug abuse patient.[facility] CompanyIn the event this information is protected by the Federal Confidentiality of Alcohol and Drug Abuse Patient Records regulations: The Federal rules restrict any use of the information to criminally investigate or prosecute any alcohol or drug abuse patient.[facility] CompanyIn the event this information is protected by the Federal Confidentiality of Alcohol and Drug Abuse Patient Records regulations: The Federal rules restrict any use of the information to criminally investigate or prosecute any alcohol or drug abuse patient.[facility] CompanyIn the event this information is protected by the Federal Confidentiality of Alcohol and Drug Abuse Patient Records regulations: The Federal rules restrict any use of the information to criminally investigate or prosecute any alcohol or drug abuse patient.[facility] CompanyIn the event this information is protected by the Federal Confidentiality of Alcohol and Drug Abuse Patient Records regulations: The Federal rules restrict any use of the information to criminally investigate or prosecute any alcohol or drug abuse patient.[facility] CompanyIn the event this information is protected by the Federal Confidentiality of Alcohol and Drug Abuse Patient Records regulations: The Federal rules restrict any use of the information to criminally investigate or prosecute any alcohol or drug abuse patient.[facility] CompanyIn the event this information is protected by the Federal Confidentiality of Alcohol and Drug Abuse Patient Records regulations: The Federal rules restrict any use of the information to criminally investigate or prosecute any alcohol or drug abuse patient.[facility] CompanyIn the event this information is protected by the Federal Confidentiality of Alcohol and Drug Abuse Patient Records regulations: The Federal rules restrict any use of the information to criminally investigate or prosecute any alcohol or drug abuse patient.[facility] CompanyIn the event this information is protected by the Federal Confidentiality of Alcohol and Drug Abuse Patient Records regulations: The Federal rules restrict any use of the information to criminally investigate or prosecute any alcohol or drug abuse patient.[facility] CompanyIn the event this information is protected by the Federal Confidentiality of Alcohol and Drug Abuse Patient Records regulations: The Federal rules restrict any use of the information to criminally investigate or prosecute any alcohol or drug abuse patient.[facility] CompanyIn the event this information is protected by the Federal Confidentiality of Alcohol and Drug Abuse Patient Records regulations: The Federal rules restrict any use of the information to criminally investigate or prosecute any alcohol or drug abuse patient.[facility] CompanyIn the event this information is protected by the Federal Confidentiality of Alcohol and Drug Abuse Patient Records regulations: The Federal rules restrict any use of the information to criminally investigate or prosecute any alcohol or drug abuse patient.[facility] CompanyIn the event this information is protected by the Federal Confidentiality of Alcohol and Drug Abuse Patient Records regulations: The Federal rules restrict any use of the information to criminally investigate or prosecute any alcohol or drug abuse patient.[facility] CompanyIn the event this information is protected by the Federal Confidentiality of Alcohol and Drug Abuse Patient Records regulations: The Federal rules restrict any use of the information to criminally investigate or prosecute any alcohol or drug abuse patient.[facility] CompanyIn the event this information is protected by the Federal Confidentiality of Alcohol and Drug Abuse Patient Records regulations: The Federal rules restrict any use of the information to criminally investigate or prosecute any alcohol or drug abuse patient.[facility] CompanyIn the event this information is protected by the Federal Confidentiality of Alcohol and Drug Abuse Patient Records regulations: The Federal rules restrict any use of the information to criminally investigate or prosecute any alcohol or drug abuse patient.[facility] CompanyIn the event this information is protected by the Federal Confidentiality of Alcohol and Drug Abuse Patient Records regulations: The Federal rules restrict any use of the information to criminally investigate or prosecute any alcohol or drug abuse patient.[facility] CompanyIn the event this information is protected by the Federal Confidentiality of Alcohol and Drug Abuse Patient Records regulations: The Federal rules restrict any use of the information to criminally investigate or prosecute any alcohol or drug abuse patient.[facility] CompanyIn the event this information is protected by the Federal Confidentiality of Alcohol and Drug Abuse Patient Records regulations: The Federal rules restrict any use of the information to criminally investigate or prosecute any alcohol or drug abuse patient.[facility] CompanyIn the event this information is protected by the Federal Confidentiality of Alcohol and Drug Abuse Patient Records regulations: The Federal rules restrict any use of the information to criminally investigate or prosecute any alcohol or drug abuse patient.[facility] CompanyIn the event this information is protected by the Federal Confidentiality of Alcohol and Drug Abuse Patient Records regulations: The Federal rules restrict any use of the information to criminally investigate or prosecute any alcohol or drug abuse patient.[facility] CompanyIn the event this information is protected by the Federal Confidentiality of Alcohol and Drug Abuse Patient Records regulations: The Federal rules restrict any use of the information to criminally investigate or prosecute any alcohol or drug abuse patient.[facility] CompanyIn the event this information is protected by the Federal Confidentiality of Alcohol and Drug Abuse Patient Records regulations: The Federal rules restrict any use of the information to criminally investigate or prosecute any alcohol or drug abuse patient.[facility] CompanyIn the event this information is protected by the Federal Confidentiality of Alcohol and Drug Abuse Patient Records regulations: The Federal rules restrict any use of the information to criminally investigate or prosecute any alcohol or drug abuse patient.[facility] CompanyIn the event this information is protected by the Federal Confidentiality of Alcohol and Drug Abuse Patient Records regulations: The Federal rules restrict any use of the information to criminally investigate or prosecute any alcohol or drug abuse patient.[facility] CompanyIn the event this information is protected by the Federal Confidentiality of Alcohol and Drug Abuse Patient Records regulations: The Federal rules restrict any use of the information to criminally investigate or prosecute any alcohol or drug abuse patient.[facility] CompanyIn the event this information is protected by the Federal Confidentiality of Alcohol and Drug Abuse Patient Records regulations: The Federal rules restrict any use of the information to criminally investigate or prosecute any alcohol or drug abuse patient.[facility] CompanyIn the event this information is protected by the Federal Confidentiality of Alcohol and Drug Abuse Patient Records regulations: The Federal rules restrict any use of the information to criminally investigate or prosecute any alcohol or drug abuse patient.[facility] CompanyIn the event this information is protected by the Federal Confidentiality of Alcohol and Drug Abuse Patient Records regulations: The Federal rules restrict any use of the information to criminally investigate or prosecute any alcohol or drug abuse patient.[facility] CompanyIn the event this information is protected by the Federal Confidentiality of Alcohol and Drug Abuse Patient Records regulations: The Federal rules restrict any use of the information to criminally investigate or prosecute any alcohol or drug abuse patient.[facility] CompanyIn the event this information is protected by the Federal Confidentiality of Alcohol and Drug Abuse Patient Records regulations: The Federal rules restrict any use of the information to criminally investigate or prosecute any alcohol or drug abuse patient.[facility] CompanyIn the event this information is protected by the Federal Confidentiality of Alcohol and Drug Abuse Patient Records regulations: The Federal rules restrict any use of the information to criminally investigate or prosecute any alcohol or drug abuse patient.[facility] CompanyIn the event this information is protected by the Federal Confidentiality of Alcohol and Drug Abuse Patient Records regulations: The Federal rules restrict any use of the information to criminally investigate or prosecute any alcohol or drug abuse patient.[facility] CompanyIn the event this information is protected by the Federal Confidentiality of Alcohol and Drug Abuse Patient Records regulations: The Federal rules restrict any use of the information to criminally investigate or prosecute any alcohol or drug abuse patient.[facility] CompanyIn the event this information is protected by the Federal Confidentiality of Alcohol and Drug Abuse Patient Records regulations: The Federal rules restrict any use of the information to criminally investigate or prosecute any alcohol or drug abuse patient.[facility] CompanyIn the event this information is protected by the Federal Confidentiality of Alcohol and Drug Abuse Patient Records regulations: The Federal rules restrict any use of the information to criminally investigate or prosecute any alcohol or drug abuse patient.[facility] CompanyIn the event this information is protected by the Federal Confidentiality of Alcohol and Drug Abuse Patient Records regulations: The Federal rules restrict any use of the information to criminally investigate or prosecute any alcohol or drug abuse patient.[facility] CompanyIn the event this information is protected by the Federal Confidentiality of Alcohol and Drug Abuse Patient Records regulations: The Federal rules restrict any use of the information to criminally investigate or prosecute any alcohol or drug abuse patient.[facility] CompanyIn the event this information is protected by the Federal Confidentiality of Alcohol and Drug Abuse Patient Records regulations: The Federal rules restrict any use of the information to criminally investigate or prosecute any alcohol or drug abuse patient.[facility] CompanyIn the event this information is protected by the Federal Confidentiality of Alcohol and Drug Abuse Patient Records regulations: The Federal rules restrict any use of the information to criminally investigate or prosecute any alcohol or drug abuse patient.[facility] CompanyIn the event this information is protected by the Federal Confidentiality of Alcohol and Drug Abuse Patient Records regulations: The Federal rules restrict any use of the information to criminally investigate or prosecute any alcohol or drug abuse patient.[facility] CompanyIn the event this information is protected by the Federal Confidentiality of Alcohol and Drug Abuse Patient Records regulations: The Federal rules restrict any use of the information to criminally investigate or prosecute any alcohol or drug abuse patient.[facility] CompanyIn the event this information is protected by the Federal Confidentiality of Alcohol and Drug Abuse Patient Records regulations: The Federal rules restrict any use of the information to criminally investigate or prosecute any alcohol or drug abuse patient.[facility] CompanyIn the event this information is protected by the Federal Confidentiality of Alcohol and Drug Abuse Patient Records regulations: The Federal rules restrict any use of the information to criminally investigate or prosecute any alcohol or drug abuse patient.[facility] CompanyIn the event this information is protected by the Federal Confidentiality of Alcohol and Drug Abuse Patient Records regulations: The Federal rules restrict any use of the information to criminally investigate or prosecute any alcohol or drug abuse patient.[facility] CompanyIn the event this information is protected by the Federal Confidentiality of Alcohol and Drug Abuse Patient Records regulations: The Federal rules restrict any use of the information to criminally investigate or prosecute any alcohol or drug abuse patient.[facility] CompanyIn the event this information is protected by the Federal Confidentiality of Alcohol and Drug Abuse Patient Records regulations: The Federal rules restrict any use of the information to criminally investigate or prosecute any alcohol or drug abuse patient.[facility] CompanyIn the event this information is protected by the Federal Confidentiality of Alcohol and Drug Abuse Patient Records regulations: The Federal rules restrict any use of the information to criminally investigate or prosecute any alcohol or drug abuse patient.[facility] CompanyIn the event this information is protected by the Federal Confidentiality of Alcohol and Drug Abuse Patient Records regulations: The Federal rules restrict any use of the information to criminally investigate or prosecute any alcohol or drug abuse patient.[facility] CompanyIn the event this information is protected by the Federal Confidentiality of Alcohol and Drug Abuse Patient Records regulations: The Federal rules restrict any use of the information to criminally investigate or prosecute any alcohol or drug abuse patient.[facility] CompanyIn the event this information is protected by the Federal Confidentiality of Alcohol and Drug Abuse Patient Records regulations: The Federal rules restrict any use of the information to criminally investigate or prosecute any alcohol or drug abuse patient.[facility] CompanyIn the event this information is protected by the Federal Confidentiality of Alcohol and Drug Abuse Patient Records regulations: The Federal rules restrict any use of the information to criminally investigate or prosecute any alcohol or drug abuse patient.[facility] CompanyIn the event this information is protected by the Federal Confidentiality of Alcohol and Drug Abuse Patient Records regulations: The Federal rules restrict any use of the information to criminally investigate or prosecute any alcohol or drug abuse patient.[facility] CompanyIn the event this information is protected by the Federal Confidentiality of Alcohol and Drug Abuse Patient Records regulations: The Federal rules restrict any use of the information to criminally investigate or prosecute any alcohol or drug abuse patient.[facility] CompanyIn the event this information is protected by the Federal Confidentiality of Alcohol and Drug Abuse Patient Records regulations: The Federal rules restrict any use of the information to criminally investigate or prosecute any alcohol or drug abuse patient.[facility] CompanyIn the event this information is protected by the Federal Confidentiality of Alcohol and Drug Abuse Patient Records regulations: The Federal rules restrict any use of the information to criminally investigate or prosecute any alcohol or drug abuse patient.[facility] CompanyIn the event this information is protected by the Federal Confidentiality of Alcohol and Drug Abuse Patient Records regulations: The Federal rules restrict any use of the information to criminally investigate or prosecute any alcohol or drug abuse patient.[facility] CompanyIn the event this information is protected by the Federal Confidentiality of Alcohol and Drug Abuse Patient Records regulations: The Federal rules restrict any use of the information to criminally investigate or prosecute any alcohol or drug abuse patient.[facility] CompanyIn the event this information is protected by the Federal Confidentiality of Alcohol and Drug Abuse Patient Records regulations: The Federal rules restrict any use of the information to criminally investigate or prosecute any alcohol or drug abuse patient.[facility] CompanyIn the event this information is protected by the Federal Confidentiality of Alcohol and Drug Abuse Patient Records regulations: The Federal rules restrict any use of the information to criminally investigate or prosecute any alcohol or drug abuse patient.[facility] CompanyIn the event this information is protected by the Federal Confidentiality of Alcohol and Drug Abuse Patient Records regulations: The Federal rules restrict any use of the information to criminally investigate or prosecute any alcohol or drug abuse patient.[facility] CompanyIn the event this information is protected by the Federal Confidentiality of Alcohol and Drug Abuse Patient Records regulations: The Federal rules restrict any use of the information to criminally investigate or prosecute any alcohol or drug abuse patient.[facility] CompanyIn the event this information is protected by the Federal Confidentiality of Alcohol and Drug Abuse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 [facility] [place] [address] PCP - General Family Medicine 12/09/19 Cardroom Worker Relationship Specialty Start Date End Date Janice Lane MD [address] [facility] [place] [address] PCP - General Family Medicine 12/09/19 Cardroom Worker Relationship Specialty Start Date End Date Janice Lane MD [address] [facility] [place], [place] [address] PCP - General Family Medicine 12/09/19 Cardroom Worker Relationship Specialty [place] [address] [place] [address] PCP - General Pediatrics 10/26/23 Cardroom Worker Relationship Specialty Start Date End Date Janice Lane MD [address] [facility] [place] [address] PCP - General Family Medicine 12/09/19 Marcin Ervin [facility] 05/30/24 Cardroom Worker Relationship Specialty [place] [address] [place] [address] PCP - General 12/13/19 Nataly Tripathi, MORTGAGE COUNSELOR[employer] [address] [employer] [place] [address] Community Service Officer Obstetrics 06/16/24 Cardroom Worker Relationship Specialty [place] [address] [place] [address] PCP - General 12/13/19 Nataly Tripathi, MORTGAGE COUNSELOR-[employer] [address] [employer] [place] [address] Community Service Officer Obstetrics 06/16/24 Cardroom Worker Relationship Specialty Start Date End Date Janice [address] MD [address] [place] [address] PCP - General Family Medicine 12/09/19 Marcin Ervin, [facility] 05/30/24 Goals (unrecognized section and [...] BE BASED ON THE PRIMARY CLINICAL RECORDS. [employer] provides no warranty or guarantee of the accuracy or completeness of information in this document.
== END 2024-08-24 10:30 | disposition home or self-care (01) ==
LOC: NOMS 10:29
PROVIDERS: Visit Provider Obstetrics & Gynecology
DX: O26.873 Cervical shortening, third trimester (principal); O34.40 Maternal care for other abnormalities of cervix, unspecified trimester; Z79.890 Hormone replacement therapy; Z3A.28 28 weeks gestation of pregnancy
CPT/HCPCS: 76817

== ENCOUNTER 2024-09-07 14:49 | Outpatient (OUT) | payer MEDICARE, MEDICAID, SELFPAY ==
--- NOTE | 2024-09-07 14:54 | US_ITS ---
[place] [id number] Patient Name: CAROL ANN ROMAN MRN: [id number] date: 1985 Sex: F Assigned Patient Location: [facility] Current Patient Location: Accession/Order Number: [id number] Exam Date: 09/07/2024 14:55 Report Date: 09/08/2024 05:19 At the request of: ELODIA JULIO Procedure: US OB cervical length EXAMINATION: US OB cervical length HISTORY: SHORT CERVIX COMPARISON: Ultrasound OB cervical length 08/24/2024 TECHNIQUE: Transabdominal and transvaginal sonographic examination for cervical length. FINDINGS: CERVIX LENGTH: 2.0 cm; closed. POSITION: Cephalic HEART RATE: Not recorded. Age by EDC: 32 weeks 6 days ELLIOTT by EDC: 10/27/2024 US/US OB cervical length IMPRESSION: 1. Closed short cervix, 2.0 cm in length, but stable. Electronically authenticated by: JAYME JACOBS Date: 09/08/2024 05:19
== END 2024-09-07 14:50 | disposition home or self-care (01) ==
LOC: NOMS 14:50
PROVIDERS: Visit Provider Physician Assistant
DX: Z36.86 Encounter for antenatal screening for cervical length (principal); Z3A.32 32 weeks gestation of pregnancy
CPT/HCPCS: 76817

== ENCOUNTER 2024-09-21 13:59 | Outpatient (OUT) | payer MEDICARE, MEDICAID, SELFPAY ==
--- NOTE | 2024-09-21 14:00 | US_ITS ---
[place] [id number] Patient Name: CAROL ANN ROMAN MRN: [id number] date: 1985 Sex: F Assigned Patient Location: [facility] Current Patient Location: [facility] Accession/Order Number: [id number] Exam Date: 09/21/2024 14:01 Report Date: 09/21/2024 14:35 At the request of: JOHN VERDIN Procedure: US OB cervical length EXAMINATION: US OB cervical length HISTORY: SHORT CERVIX COMPARISON: 09/07/2024 FINDINGS: The cervix is 2 cm in length, closed. Cephalic presentation Clinical age: 34 weeks 6 days US/US OB cervical length IMPRESSION: Closed cervix measuring 2 cm Electronically authenticated by: JANICE ERWIN Date: 09/21/2024 14:35
== END 2024-09-21 14:00 | disposition home or self-care (01) ==
LOC: NOMS 13:59
PROVIDERS: Visit Provider Obstetrics & Gynecology
DX: Z36.86 Encounter for antenatal screening for cervical length (principal); Z3A.34 34 weeks gestation of pregnancy
CPT/HCPCS: 76817

== ENCOUNTER 2024-09-27 13:37 | Outpatient (OUT) | payer MEDICARE, MEDICAID, SELFPAY ==
--- NOTE | 2024-09-27 13:41 | US_ITS ---
[address] [address] Patient Name: CAROL ANN ROMNA MRN: [id number] date: 1985 Sex: F Assigned Patient Location: [facility] Current Patient Location: Accession/Order Number: [id number] Exam Date: 09/27/2024 13:40 Report Date: 09/28/2024 06:35 At the request of: JOHN VERDIN Procedure: US OB growth EXAMINATION: US OB growth HISTORY: MULTIPLE SCLEROSIS, SHORT CERVIX COMPARISON: Ultrasound OB cervical length 09/21/2024 FINDINGS: Heart Rate: 156 bpm Amniotic Fluid Volume: 10.1 cm; within normal range. Number: 1 Position: CEPHALIC BIOMETRY: BPD: 8.61 cm; 34 weeks 5 days; 28.10 % HC: 31.54 cm; 35 weeks 3 days; 13.90 % AC: 29.99 cm; 34 weeks 0 days; 13.50 % FL: 6.74 cm; 34 weeks 5 days; 19 % EFW: 2378.84 g; 16.90 % FL/AC: 22.47 FL/BPD: 78.28 HC/AC: 1.05 GESTATIONAL AGE: Age by EDC: 35 weeks 5 days ELLIOTT by EDC: 2024-10-27 Age by US: 34 weeks 5 days ELLIOTT by US: 2024-11-03 US/US OB growth IMPRESSION: 1. Single live intrauterine with growth detailed above. Electronically authenticated by: JAYME JACOBS Date: 09/28/2024 06:35
== END 2024-09-27 13:38 | disposition home or self-care (01) ==
LOC: NOMS 13:38
PROVIDERS: Visit Provider Obstetrics & Gynecology
DX: O26.873 Cervical shortening, third trimester (principal); Z3A.35 35 weeks gestation of pregnancy; G35 Multiple sclerosis
CPT/HCPCS: 76816

== ENCOUNTER 2024-09-28 09:06 | Outpatient (OUT) | payer MEDICARE, MEDICAID, SELFPAY ==
--- NOTE | 2024-09-28 17:17 | US_ITS ---
[address] [address] Patient Name: CAROL ANN ROMAN MRN: [id number] date: 1985 Sex: F Assigned Patient Location: [facility] Current Patient Location: Accession/Order Number: [id number] Exam Date: 09/28/2024 17:25 Report Date: 09/29/2024 07:20 At the request of: JOHN VERDIN Procedure: US OB BPP w non-stress EXAMINATION: US OB BPP w non-stress HISTORY: MULTIPLE SCLEROSIS G35 COMPARISON: No relevant comparison available. TECHNIQUE: Ultrasound biophysical profile was performed in the radiology department. non-reactive stress testing was performed by nursing staff in the birthing center. FINDINGS: BREATHING MOVEMENTS: 2 GROSS BODY MOVEMENTS: 2 TONE: 2 QUALITATIVE AMNIOTIC FLUID VOLUME: 2 PRESENTATION: CEPHALIC HEART RATE: 145.16 bpm AMNIOTIC FLUID VOLUME: 12.9 cm GESTATIONAL AGE: 35 weeks 6 days US/US OB BPP w non-stress IMPRESSION: Total biophysical profile score: 8 Electronically authenticated by: JANICE ERWIN Date: 09/29/2024 07:20
[2024-09-28 17:46] VITALS: BP 113/84; PULSE 94
== END 2024-09-28 18:14 | disposition home or self-care (01) ==
LOC: US 09:08 → FBC 17:13
PROVIDERS: Visit Provider Obstetrics & Gynecology
DX: O26.873 Cervical shortening, third trimester (principal); G35 Multiple sclerosis; Z3A.35 35 weeks gestation of pregnancy
CPT/HCPCS: 76818

== ENCOUNTER 2024-10-01 17:03 | Outpatient (OUT) | payer MEDICARE, MEDICAID, SELFPAY ==
[2024-10-01 17:09] VITALS: BP 111/76; PULSE 107
--- OUTSIDE RECORDS SUMMARY | 2024-10-04 10:43 | XMS_ITS | CCD ---
Author Organization [facility] Care Team Providers Care Vendor Manager Name Role Phone NON, STAFF Primary Care [...] Primary Care Provider Clarke Hu Attending Provider [phone] MD Primary Care Provider MD Janice Lane Primary Care Provider Clarke Hu Attending Provider [phone] MD Primary Care Provider MD Janice Lane Primary Care Provider Clarke Hu Attending Provider Clarke Hu Attending Unavailable Janice Lane Primary Care Unavailable Mayte, Clarke Admitting Unavailable Mayte, Clakre Attending Unavailable Mayte, Clarke Admitting Unavailable Janice Lane Primary Care Unavailable Mayte, Clarke Attending Unavailable Mayte, Clarke Admitting Unavailable Janice Lane Primary Care Unavailable Mayte, Clarke Attending Unavailable Mayte, Clarke Admitting Unavailable Janice Lane Primary Care Unavailable [facility], Marcin Unavailable Unavailable Janice Lane MD Primary Care Provider Deuce PRIVATE INVESTIGATOR-ENVIRONMENTAL PROJECTS ADVISOR, Nataly Amor Unavailable CLARKE HU Referring Unavailable JANICE LANE Primary Care Unavailable JANICE ESCOBAR Attending Unavailable JANICE LANE Primary Care Unavailable CLARKE HU Referring Unavailable JANICE LANE Primary Care Unavailable CLARKE HU Referring Unavailable JANICE LANE Primary Care Unavailable JANICE ESCOBAR Attending Unavailable JANICE LANE Primary Care Unavailable CLARKE HU Referring Unavailable JANICE LANE Primary Care Unavailable CLARKE HU Referring Unavailable JANICE LANE Primary Care Unavailable JAJA, SUNJEET Referring Unavailable JANICE LANE Primary Care Unavailable JANICE LANE Primary Care Unavailable AYAN MARIE Attending Unavailable JANICE LANE Primary Care Unavailable TOR HERNANDEZ Attending Unavailable ROXY HOGAN Attending Unavailable JANICE LANE Primary Care Unavailable JANICE LANE Primary Care Unavailable ART SWENSON Attending Unavaila JANICE Nielsen Primary Care Unavailable IBAN LAZO Attending Unavailable JANICE LANE Primary Care Unavailable ESTELLA DUTTON Attending Unavailable TOR HERNANDEZ Referring Unavailable JANICE LANE Primary Care Unavailable TOR HERNANDEZ Attending Unavailable IBAN LAZO Attending Unavailable JANICE LANE Primary Care Unavailable IBAN LAZO Attending Unavailable JANICE LANE Primary Care Unavailable IBAN LAZO Attending Unavailable JANICE LANE Primary Care Unavailable JAJA, SUNJEET Referring Unavailable JANICE LANE Primary Care Unavailable IBAN LAZO Attending Unavailable JANICE LANE Primary Care Unavailable SELF Referring Unavailable JANICE LANE Primary Care Unavailable GARCIA, SAMER Referring Unavailable RIMAJANICE Primary Care Unavailable TOR HERNANDEZ Attending Unavailable NESHA SANTANA Referring Unavailable RIMAJANICE Primary Care Unavailable SELF Referring Unavailable CHAMP LEON Attending Unavailable JANICE LANE Primary Care Unavailable TOR HERNANDEZ Referring Unavailable RIMAAJNICE HOFFMAN Attending Unavailable JANICE LANE Primary Care Unavailable RIMA, JANICE Hoover Referring Unavailable RIMA, JANICE Hoover Primary Care Unavailable RIMA, JANICE Hoover Primary Care Unavailable RIMA, JANICE Hoover Referring Unavailable RIMA, JANICE Hoover Primary Care Unavailable RIMA, JANICE Hoover Referring Unavailable IBAN LAZO Attending Unavailable SELF Referring Unavailable JANICE LANE Primary Care Unavailable GERMANIA WILKINSON Attending Unavailable JANICE LANE Primary Care Unavailable RIMA, JANICE Hoover Referring Unavailable RIMA, JANICE Hoover Primary Care Unavailable RIMA, JANICE Hoover Referring Unavailable RIMAJANICE HOFFMAN Primary Care Unavailable RIMA, JANICE Hoover Primary Care Unavailable IBAN LAZO Attending Unavailable JANICE LANE Attending Unavailable JANICE LANE Primary Care Unavailable GERMANIA WILKINSON Attending Unavailable JANICE LANE Primary Care Unavailable TOR HERNANDEZ Referring Unavailable JAHAIRA BYERS Attending Unavailable MARVIN HOWARD Attending Unavailable MARVIN HOWARD Attending Unavailable MARVIN HOWARD Attending Unavailable KELECHI TATUM Attending Unavailable MAYTE, CLARKE Attending Unavailable MAYTE, CLARKE Attending Unavailable MAYTE, CLARKE Attending Unavailable JAHAIRA BYERS Attending Unavailable MYATE, CLARKE Attending Unavailable NESHA ZELAYA Attending Unavailable MAYTE, CLARKE Attending Unavailable MAYTE, CLARKE Attending Unavailable MARVIN HOWARD Attending Unavailable MAYTE, CLARKE Attending Unavailable KELECHI TATUM Attending Unavailable JAHAIRA BYERS Attending Unavailable ALEYDA MONTEMAYOR Attending Unavailable MODESTA JAHAIRA Attending Unavailable MAYTE, CLARKE Attending Unavailable MAYTE, CLARKE Attending Unavailable Unavailable Unavailable Unavailable Allergies Allergy Classification Reported Allergen(s) Allergy Type Date of Onset Reaction(s) Facility Lecithin (1 source) Lecithin Drug Allergy 9 Other: See Comments, Unknown, Itching, GI Upset [facility] Soy (1 source) Soy protein Food Allergy 0 Intolerance [facility] Soybean Lecithin (1 source) Soybean Lecithin Drug Allergy 2 GI Upset, Unknown [facility] Wheat gluten extract (1 source) Wheat gluten extract Drug Allergy 9 Other: See Comments, Hives, Itching [facility] (2 sources) glutenin; Translations: [GLUTEN] Allergy to substance (finding) 9 [facility] Repository (17 sources) Soy protein; Translations: [SOY ALLERGY] Propensity to adverse reactions to drug (disorder) 0 Headache, Unknown [facility] Repository (17 sources) GLUTEN MEAL; Translations: [GLUTEN MEAL] Propensity to adverse reactions to drug (disorder) 9 Hives, Itching, Unknown [facility] Repository (1 source) LECITHIN ORGANIC-SOYBEAN LECITHIN; Translations: [LECITHIN ORGANIC-SOYBEAN LECITHIN] Propensity to adverse reactions to drug (disorder) 9 [facility] Repository (20 sources) Lecithin; Translations: [LECITHIN] Drug Allergy 9 Other: See Comments, Unknown, Itching, GI Upset, Nausea And Vomiting [facility] Work Phone: (20 sources) Soy protein; Translations: [SOY] Drug Intolerance 0 Intolerance [facility] (20 sources) Wheat gluten extract Drug Allergy 9 Other: See Comments, Hives, Itching [facility] (20 sources) Soybean Lecithin; Translations: [LECITHIN, SOY] Drug Allergy 2 GI Upset, Unknown [facility] (16 sources) Other Allergy to substance 0 Headache [facility] (1 source) ALLERGIES NOT ON FILE; Translations: [ALLERGIES NOT ON FILE] Propensity to adverse reactions (disorder) [facility] Medications Current Medications Medication Drug Class(es) [...] mo ut every 4 hours as needed. amoxicillin 875 mg oral tablet (20 sources) Penicillin-class Antibacterial Start: 08-26-2024 End: 09-05-2024 amoxicillin (AMOXIL) 875 mg tablet Take 875 mg by mouth. 08/26/2024 09/05/2024 Active Start: 07-19-2024 End: 07-29-2024 take 1 tablet [...] Comment on above: Take 1,000 mg by [facility] two times a day. B Complex-C (b complex-vitamin c) tablet (16 sources) take 1 tablet by mouth in [...] mg/ml / clotrimazole 10 mg/ml topical cream (12 sources) Azole Antifungal, Corticosteroid Start: 02-23-2024 clotrimazole-betamethason [...] . cetirizine hydrochloride 10 mg oral tablet (16 sources) Histamine-1 Receptor Antagonist Start: 08-09-2023 take [...] Start: 04-09-2019 take 1 capsule by mo [facility] once daily Cholecalciferol (Vitamin D3) (Vitamin D3) 1,000 unit Capsule Active 1000 UNIT PO Daily April 09, 2019 12:00am [facility] cholecalciferol (Vitamin D3) 1.25 MG (54386 UT) tablet Take 1.25 mg by mouth once a week Active Comment on above: Take 1 capsule by mo [facility] one time a week. diphenhydrAMINE hydrochloride 25 mg oral capsule (6 sources) Histamine-1 Receptor Antagonist Start: 04-09-20 19 take 1 capsule by mouth every six hours Diphenhydramine Hcl (Benadryl) 25 mg Capsule Active 25 MG PO Q6H April 09, 2019 12:00am doxycycline hyclate 100 mg oral capsule (2 sources) Tetracycline-class Drug Start: 12-11-19 End: 12-18-19 24 doxycycline (Vibramycin) 100 MG capsule Indications: Bacterial [...] sources) Provitamin D2 Compound Start: 01-31-20 End: 03-30-20 take 1 capsule by mouth every week ergocalciferol (Vitamin D-2) 1.25 MG (08339 UT) capsule Take 50,000 Units by mouth once a week. 07/31/2023 Active Start: 08-08-2022 take 1 capsule by [facility] every week ergocalciferol 50,000 unit capsule (VITAMIN D2, DRISDOL) Take 1 capsule by mouth one time a week. 12 capsule 3 08/08/2022 Active Comment on above: Take 1 capsule by [facility] one time a week. ferrous sulfate 325 mg oral tablet (20 sources) Start: 02-13-2023 End: 03-15-2023 take 1 tablet by mouth once daily ferrous sulfate 325 mg (65 mg iron) tablet Indications: Iron deficiency anemia due to chronic blood loss Take 1 tablet by mouth once daily. 30 tablet 1 02/13/2023 03/15/2023 Active [facility] Ferrous Sulfate (IRON PO) Take 1 tablet by mouth in the morning. Active FERROUS SULFATE ORAL Take by mouth every 24 hours. Active FERROUS SULFATE ORAL Take by mouth every 24 hours. 0 Active [facility] Ferrous Sulfate (IRON PO) Take 1 tablet by mouth in the morning. 0 Active Comment on above: Take 1 tablet by [facility] once daily. Take by mouth every 24 hours. fluticasone propionate 0.05 mg/actuat metered dose nasal spray (20 sources) Corticosteroid Start: take 1 spray(s) nasal route once daily fluticasone (FLONASE) 50 mcg/actuation nasal spray Use 1 [place] in each nostril once daily. 1 g 5 09/01/2020 Active Comment on above: Use 1 [place] in each nostril once daily. 1 ml glatiramer acetate 40 mg/ml prefilled syringe (20 sources) Start: End: inject 40 mg by subcutaneous injection once glatiramer (COPAXONE) 40 mg/mL injection Indications: Multiple sclerosis (HCC) Inject 40 mg subcutaneously every Friday, Friday, and Friday. 12 mL 5 06/23/2024 10/25/2024 Active inject 20 mg by subc utaneous [...] daily at bedtime. 30 tablet 5 03/30/2024 Active take 1 tablet by mouth at bedtim e magnesium oxide (Mag-Ox) 400 MG tablet Take 1 tablet by mouth at bedtime. Active Comment on above: Take 1 tablet by [facility] daily at bedtime. methylPREDNISolone (16 sources) Corticosteroid Start: 08-24-2024 methylPREDNISolone (MEDROL DOSE-PACK) 4 mg Dose-Pack Day 1: 6 tablets Day 2: 5 tablets Day 3: 4 tablets Day 4: 3 tablets Day 5: 2 tablets Day 6: 1 tablet 08/24/2024 Active Start: 08-24-2024 methylPREDNISo lone (Medrol Dospak) 4 MG tablets Indications: MS (multiple sclerosis) ([facility]) Day 1: 6 tablets Day 2: 5 tablets Day 3: 4 tablets Day 4: 3 tablets Day 5: 2 tablets Day 6: 1 tablet 21 tablet 08/24/2024 Active mometasone furoate 1 mg/ml topical cream (20 sources) Corticosteroid Start: 07-19-2024 mometasone (EL TAMARA) 0.1 % cream Apply to affected area [...] 12/11/2023 12/18/2023 Active Multiple Vitamin (multivitamin) tablet (9 sources) End: 08-24-2024 take 1 tablet by mouth in the morning Multiple Vitamin (multivitamin) tablet Take 1 tablet by mouth in the morning. 08/24/2024 Discontinued take 1 tablet by mouth in the [...] by jose ramon th every 24 hours. Wvnqmnnlgqjs-Helc-T olic Acid (1 source) Start: 04-09-2019 take 1 tablet by mouth once daily Multivitamin-Iron- Folic Acid Active 1 TAB Oral Daily April 09, 2019 12:28pm Tzjycygrpyuc-Ebyv-U olic Acid (Multi-Day With Iron) 18-400 mg-mcg Tablet (5 sources) Start: 04-09-2019 take 1 tablet by mouth once daily Multivitamin-Iron- Folic Acid (Multi-Day With Iron) 18-400 mg-mcg Tablet Active 1 TAB PO Daily April 09, 2019 12:28pm Start: 04-09-2019 take 1 tablet by jose ramon th once daily Pdgsjpywjhli-Dovb-Enzqa Acid (Multi-Day With Iron) 18-400 mg-mcg Tablet Active 1 TAB PO Daily April 09, 2019 12:00am Start: 04-09-2019 take 1 tablet by jose ramon th once daily Boqoihdjznnj-Cvyn-Mtdyg Acid (Multi-Day With Iron) 18-400 mg-mcg Tablet [...] infusion Q6M for MS OTC NUTRITIONAL SUPPLEMENT (16 sources) Start: 08-17-2024 End: 09-16-2024 OTC NUTRITIONAL [...] Each 5 06/09/2024 08/17/2024 Discontinued Start: 06-09-2024 OTC NUTRITIONA L SUPPLEMENT Indications: Multiple sclerosis (HCC) , 19 weeks gestation of Take 1 Each by mouth two times a day. Drink 2 drinks per day. Patient preference to brand and flavor 30 Each 5 06/09/2024 Active phenylephrine hydrochloride 25 mg/ml ophthalmic solution (1 source) alpha-1 Adrenergic Agonist Start: 08-14-2022 End: 08-15-2022 PHENYLephrine 2.5 % 1 Drop (AK-DILATE, SABINA-SYNEPHRINE) polyethylene glycol 3350 68934 mg powder for oral solution (20 sources) Osmotic Laxative Start: 03-30-2024 End: 05-29-2024 polyethylene glycol 3350 (MIRALAX) 17 gram/dose powder Indications: Multiple sclerosis (HCC) , Constipation, unspecified constipation type Take 17 g by mouth once daily. Dissolve dose in 4 - 8 ounces of liquid and take as directed. 510 g 1 03/30/2024 05/29/2024 Active Start: 04-19-2021 End: 08-14-2022 polyethylene glycol 3350 (NM RALAX) 17 gram/dose powder Indications: Chronic idiopathic [...] ounces of liquid and take as directed. Niyvzsgm-Rxd-Vx-FA (Jenliva / ) 1 MG capsule (12 sources) Jrymqsfs-Bpz-Zh-FA (Jenliva /) 1 MG capsule Take by mouth Active Vit-Fe Fumarate-FA ( Plus/Iron) 27-1 MG tablet (5 sources) Start: 03-22-2024 End: 08-24-2024 take 1 tablet by mouth once daily Vit-Fe Fumarate-FA ( Plus/Iron) 27-1 MG tablet Indications: Positive urine test Take 1 tablet by mouth Daily Please dispense what insurance approves. 30 tablet 11 03/22/2024 08/24/2024 Discontinued Start: 03-22-2024 End: 03-22-2025 take 1 tablet [...] 08-15-20 tropicamide 1 % 1 Drop (MYDRIACYL) valACYclovir 500 mg oral tablet (1 source) Herpesvirus Nucleoside Analog DNA Polymerase Inhibitor, Herpes Simplex Virus Nucleoside Analog DNA Polymerase Inhibitor, Herpes Zoster Virus Nucleoside Analog DNA Polymerase Inhibitor Start: 09-21-20 End: 03-20-20 25 take 1 tablet by mouth once daily valACYclovir (Valtrex) 500 MG tablet Indications: HSV (herpes simplex virus) infection Take 1 tablet (500 mg) by mouth Daily 30 tablet 5 09/21/2024 03/20/2025 Active Vitamin B Complex (1 source) Start: 04-09-20 [...] every four to six hours Hydrocodone-Acetami nophen ([place]) 5-325 mg Tablet Discontinued 1 TAB PO [...] Take by mouth once d aily. Mag Gxqvl-O5-Kroqhfap Rt Xt (6 sources) Vitamin D Start: 04-09-2019 End: 04-02-2022 Mag Cvjka-Y9-Kzrrrrfv Rt Xt Discontinued TABLET April 09, 2019 12:28pm April 02, 2022 5:24pm Start: 04-09-2019 Mag Oxide-D3-T urmeric Rt Xt Active April 09, 2019 12:28pm Start: 04-09-2019 End: 04-02-2022 Mag Bqkbq-Z0-Inhrlvkw Rt Xt Discontinued TABLET April 09, 2019 12:00am April 02, 2022 5:24pm Start: 04-09-2019 End: 04-02-2022 Mag Kqzth-A1-Hleyaquj Rt Xt Discontinued TABLET April 08, 2019 [...] 2019 12:00am April 02, 2022 5:23pm levonorgestrel 0.598188 mg/hr intrauterine system (6 sources) Progestin, Progestin-containing [...] on above: Take 1 capsule by mo [facility] DAILY (6 AM). Magnesium (20 sources) End: [...] Take 20 mEq by mouth as needed. Lksyesnj-Li-Mrj-Fe-FA ( VITAMIN) tab (20 sources) Start: take 1 tablet by mouth once daily Rcapeziq-Is-Eud-Fe- FA ( VITAMIN) tab Indications: Encounter for supervision of normal first in second trimester Take 1 tablet by mouth once daily. 90 tablet 3 2020 Active Comment on above: Take 1 tablet by jose ramon once daily. Vit-Fe Fumarate-FA (M-Blake Plus) 27-1 MG tablet (6 sources) Start: End: take 1 tablet by mouth once daily Vit-Fe Fumarate-FA (M-Blake Plus) 27-1 MG tablet Indications: Third trimester Take 1 tablet by mouth Daily Please dispense what insurance approves. 30 tablet 11 08/25/2024 09/24/2024 Start: 08-25-2024 End: 09-24-2024 take 1 tablet by mouth once daily Vit-Fe Fumarate-FA (M-Blake Plus) 27-1 MG tablet Indications: Third trimester Take 1 tablet by mouth Daily Please dispense what insurance approves. 30 tablet 11 08/25/2024 09/24/2024 Active /Iron Oral Tablet (1 source) Start: 01-05-2020 take 1 tablet by mouth once daily /Iron Oral Tablet TAKE 1 TABLET DAILY. Refills: 0 Start : 05-Jan-2020 Active traZODone hydrochloride 50 mg oral tablet (20 sources) Serotonin Reuptake Inhibitor Start: 07-17-2023 End: 03-30-2024 take 1 tablet by mouth at bedtime as needed traZODone (DESYREL) 50 mg tablet Indications: Chronic insomnia Take 1 tablet by mouth at bedtime as needed. 30 tablet 2 07/17/2023 03/30/2024 Discontinued (Course of therapy completed) Comment on above: Take 1 tablet by jose ramon th at bedtime as needed. Vitamin B Complex Oral Tablet (1 source) Start: 01-05-2020 take 1 tablet by mouth once daily Vitamin B Complex Oral Tablet TAKE 1 TABLET DAILY. Refills: 0 Start : 05-Jan-2020 Active vitamin B complex with C-FA-CU-ZN renal vitamins (DIATX ZN) 5-1.5-25 mg tab (20 sources) Start: 04-09-2019 End: 08-14-2022 vitamin B complex with C-FA-CU-ZN renal vitamins [...] [Unspecified optic neuritis] Onset: 08-21-2019 04-17-2021 Chronic Inflammation; infection of eye (except that caused by tuberculosis or sexually transmitteddisease) (1 source) Blepharitis; Translations: [Squamous blepharitis right eye, upper and lower eyelids] 08-30-2024 Episodic Malaise and fatigue (3 sources) Malaise and fatigue; Translations: [Other malaise] Onset: 07-01-2024 06-08-2024 Episodic Menstrual disorders (14 sources) Irregular menstruation, unspecified; Translations: [Excessive and [...] [Vitamin D deficiency, unspecified] Chronic Other aftercare (20 sources) Patient encounter status; Translations: [Other technician terminal and repeater (current) drug therapy] Onset: 01-08-2021 Resolved: 01-11-2021 Episodic Other aftercare (2 sources) Surgical follow-up; Translations: [Encounter for follow-up examination after completed treatment for conditions other than malignant neoplasm] 12-11-2023 Episodic Other complications of (2 sources) care status; Translations: [Maternal care for other known or suspected poor growth, third trimester, not applicable or unspecified] Onset: 08-17-2024 08-17-2024 Episodic Other complications of (2 sources) Diseases of the nervous system complicating , second trimester; Translations: [Diseases of the nervous system complicating , second trimester ([facility])] Onset: 06-16-2024 Episodic Other complications of (2 sources) Supervision of elderly primigravida, third trimester; Translations: [Supervision of elderly primigravida, third trimester] Onset: 08-17-2024 Episodic Other complications of (1 source) Maternal care for other known or suspected poor growth, third trimester, not applicable or unspecified; Translations: [Maternal care for other known or suspected poor growth, third trimester, not applicable or unspecified] Onset: 08-17-2024 Episodic Other complications of (2 sources) Diseases of the nervous system complicating , third trimester; Translations: [Diseases of the nervous system complicating , third trimester ([facility])] Onset: 08-17-2024 Episodic Other complications of (2 sources) Maternal care for other abnormalities of cervix, third trimester; Translations: [Maternal care for other abnormalities of cervix, third trimester ([facility])] Onset: 08-17-2024 Episodic Other complications of (2 sources) Cervical shortening, third trimester; Translations: [Cervical shortening, third trimester ([facility])] Onset: 08-17-2024 Episodic Other connective tissue disease (4 sources) Spasticity; Translations: [Cramp and spasm] 07-23-2023 Episodic Other diseases of bladder and urethra (20 sources) Neurogenic bladder; Translations: [Neuromuscular dysfunction of bladder, unspecified] Onset: 07-14-2020 04-17-2021 Chronic Other ear and sense organ disorders (20 sources) Bilateral hearing loss; Translations: [Unspecified hearing loss, bilateral] Onset: 07-14-2018 04-17-2021 Chronic Other eye disorders (1 source) Optic atrophy of right eye; 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, right eye] 08-30-2024 Chronic Other female genital disorders (6 sources) Abnormal uterine bleeding; Translations: [Other specified abnormal uterine and vaginal bleeding] 04-02-2022 Chronic Other female genital disorders (1 source) Vaginal bleeding; Translations: [Abnormal uterine and vaginal bleeding, unspecified] Chronic Other hereditary and degenerative nervous system [...] Other nervous system disorders (1 source) 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; Translations: [History of multiple sclerosis] Episodic Other nervous system disorders (3 sources) Personal history of other diseases of the nervous system and sense organs; Translations: [History of optic neuritis] Episodic Other nervous system disorders (1 source) Incoordination; Translations: [Unspecified lack of coordination] Episodic Other non-traumatic joint disorders (1 source) Pain in right hip joint; Translations: [Pain in right hip] 07-19-2024 Episodic Other non-traumatic joint disorders (7 sources) Hip pain; Translations: [Pain in right hip] Onset: 09-03-2024 09-03-2024 Episodic Other non-traumatic joint disorders (1 source) Pain in right hip; Translations: [Right hip pain] Onset: 09-03-2024 Episodic Other nutritional; endocrine; and metabolic disorders (1 source) H/O: endocrine disorder; Translations: [History of hypoglycemia] Episodic Other skin disorders (1 source) Xeroderma; Translations: [Xerosis cutis] 07-19-2024 Episodic Other upper respiratory infections (5 sources) Acute maxillary sinusitis; Translations: [Acute maxillary sinusitis, unspecified] 12-23-2023 Episodic Otitis media and related conditions (4 sources) Acute suppurative otitis media without spontaneous [...] of ] 08-10-2024 Episodic Residual codes; unclassified (2 sources) Gestation period, 30 weeks; Translations: [30 weeks gestation of ] 08-24-2024 Episodic Residual codes; unclassified (2 sources) Gestation period, 32 weeks; Translations: [32 weeks gestation of ] 09-07-2024 Episodic Residual codes; unclassified (2 sources) Other specified postprocedural states; Translations: [Other specified postprocedural states] Onset: 08-17-2024 Episodic Residual codes; unclassified (1 source) Other specified personal risk factors, not elsewhere classified; Translations: [At risk for obstructive sleep apnea] Onset: 07-01-2024 Episodic Unclassified (19 sources) Sleep Efficiency Onset: 03-30-2024 03-30-2024 Unclassified (2 sources) MFM Consultation Onset: 06-14-2024 Unclassified (1 source) Chronic midline low back [...] antibody titer] Onset: 01-08-2021 01-11-2021 Episodic Other bone disease and musculoskeletal deformities (20 sources) Costal chondritis; Translations: [Chondrocostal junction syndrome [[place]]] Onset: 04-17-2021 Resolved: 04-20-2021 04-20-2021 Episodic Other complications of ; puerperium affecting management of mother (2 sources) Maternal care for (suspected) abnormality and damage, unspecified, not applicable or unspecified; Translations: [Maternal care for (suspected) abnormality and damage, unspecified, not applicable or unspecified ([facility])] Onset: 06-14-2024 Episodic Other complications of (20 sources) Elderly [...] Resolved: 01-11-2021 01-11-2021 Episodic Other complications of (5 sources) Multiple sclerosis; Translations: [Diseases of the nervous system complicating , third trimester] Onset: 06-16-2024 08-17-2024 Episodic Other complications of (4 sources) Short cervical length in ; Translations: [Cervical shortening, third trimester] Onset: 06-16-2024 08-17-2024 Episodic Other complications of (2 sources) Supervision of elderly multigravida, second trimester; Translations: [Supervision of elderly multigravida, second trimester ([facility])] Onset: 06-14-2024 Episodic Other complications of (2 sources) Diseases of the nervous system complicating , unspecified trimester; Translations: [Diseases of the nervous system complicating , unspecified trimester ([facility])] Onset: 06-14-2024 Episodic Other complications of (2 sources) Cervical shortening, second trimester; Translations: [Cervical shortening, second trimester ([facility])] Onset: 06-14-2024 Episodic Other endocrine disorders (20 sources) Hypoglycemia; [...] Onset: 01-22-2021 Resolved: 04-17-2021 04-17-2021 Viral infection (16 sources) Disease caused by 2019-nCoV; Translations: [COVID-19] Onset: 03-22-2024 10-28-2022 Episodic Results Test Name Value Interpretation Reference Range [facility] OT/PT/Speech Visit (LOPTRM) ----- CAROL ANN MARTINEZ ([id number]) 1985 F Date Time Provider Department 09/21/24 9:45 AM ESTRELLA SORTO Date Time Provider Department Center 09/21/2024 9:45 AM [id number] SORTO Reason for Visit: Physical Therapy [503] Primary Visit Diagnosis:Right hip pain [M25.551] Allergies As of Date: 09/21/2024 Noted Allergy Reaction GLUTEN 03/19/2019 14 - [...] Vomiting More constipated More constipated Date Reviewed: 08/30/2024 Reviewed by: Art Swenson OD - Fully Assessed Prescriptions as of 09/21/2024 - methylPREDNISolone (MEDROL DOSE-PACK) 4 mg Dose-Pack Day 1: 6 tablets Day 2: 5 tablets Day 3: 4 tablets Day 4: 3 tablets Day 5: 2 tablets Day 6: 1 tablet - mometasone (ELOCON) 0.1 % cream Apply to affected area once daily. - glatiramer (COPAXONE) 40 mg/mL injection Inject 40 mg subcutaneously every Friday, Friday, and Friday. - magnesium oxide (MAG-OX) 400 mg (241.3 mg magnesium) tablet Take 1 tablet by mouth daily at bedtime. - cholecalciferol (VITAMIN D-3) 5,000 unit tab Take 1 tablet by mouth once daily. - ketoconazole (NIZORAL) 2 % shampoo 2-3 times weekly as body wash - vitamin B complex with C-FA-CU-ZN renal vitamins (DIATX ZN) 5-1.5-25 mg tab Take by mouth every 24 hours. - FERROUS SULFATE ORAL Take by mouth every 24 hours. - multivitamin with minerals (MULTIPLE VITAMIN-MINERALS) tablet Take 1 tablet by mouth every 24 hours. - ketoconazole (NIZORAL) 2 % cream Apply to affected area once daily. Apply qd - tiZANidine (ZANAFLEX) 2 mg tablet Take 1 tablet by mouth every 8 hours as needed. - VITAMIN B COMPLEX ORAL Take by mouth. - fluticasone (FLONASE) 50 mcg/actuation nasal spray Use 1 [place] in each nostril once daily. Detail Manager: Therapy (PT/OT/Speech/Resp) ID: [id number] 09/21/2024 10:16 AM Author: ESTRELLA SORTO Signed by ESTRELLA SORTO PT, DPT on 09/21/2024 at 10:16 AM Document text: Program_ID:[id number] Access Code: [email or web address] URL: [email or web address] Date: 09-21-2024 Prepared By: Estrella Sorto Program Notes Exercises - Seated Hip Adduction Isometrics with Ball - 1-3 x daily - 7 x weekly - 2-3 sets - 10 reps - Seated Hip Abduction with Resistance - 1-3 x daily - 7 x weekly - 2-3 sets - 10 reps - Supine Heel Slide with Strap - 1 x daily - 7 x weekly - 2 sets - 10 reps Normal [facility] THERAPY NTon 09-21-2024 THERAPY NT HNO ID: [id number] Author: ESTRELLA SORTO, PT, DPT Service: ? Author Type: Physical Therapist Type: Therapy (PT/OT/Speech/Resp) Filed: 09/21/2024 10:16 Note Text: Program_ID:[id number] Access Code: [email or web address] URL: [email or web address] Date: 09-21-2024 Prepared By: Estrella Sorto Program Notes Exercises - Seated Hip Adduction Isometrics with Ball - 1-3 x daily - 7 x weekly - 2-3 sets - 10 reps - Seated Hip Abduction with Resistance - 1-3 x daily - 7 x weekly - 2-3 sets - 10 reps - Supine Heel Slide with Strap - 1 x daily - 7 x weekly - 2 sets - 10 reps Normal [facility] OB FOLLOW UP TRANSABDOMIN AL APPROACHon 09-14-2024 OB FOLLOW UP TRANSABDOMINAL APPROACH Interpreted by: Radha Batres Indication ======== Suspected Problem with Growth History ====== General History Height 168 cm [...] Weight gain (lb) 0 lb BMI 21.14 kg/m??? Physical Exam Initial weight (lb) 131 lb ========= Tony . Number of fetuses: 1 Dating ====== GA by prior assessment 34 w + 2 d ELLIOTT by prior assessment: 10/27/2024 Ultrasound examination on: 09/17/2024 GA by U/S based upon: AC, BPD, Femur, HC GA by U/S 34 w + 3 d ELLIOTT by U/S: 10/26/2024 Assigned: based on stated ELLIOTT, selected on 06/14/2024 Assigned GA 34 w + 2 d Assigned ELLIOTT: 10/27/2024 Growth Overview Exam date GA BPD (mm) HC (mm) AC (mm) FL (mm) HL (mm) EFW (g) 06/14/2024 20w 5d 49.8 64% 183.3 41% 164.9 71% 33.9 39% 33.5 54% 398 65% 08/17/2024 29w 6d 74.6 40% 276.2 24% 259.2 51% 56.3 28% 1478 39% 09/17/2024 34w 2d 87.5 78% 311.8 29% 288.9 17% 66.8 43% 2268 30% Impression ========= Patient presents for growth assessment due to the following complications: Multiple sclerosis -Appropriate growth and AFV -No malformations were identified on a limited survey -BPP Score is 8/8 Thank you allowing us to participate in the care of your patient Attending Attestation: I personally reviewed the image(s)/study and fellow interpretation. I agree with the findings as stated. Follow-up ======== 3 week growth assessment General Evaluation Cardiac activity present. FHR 154 bpm. movements: visualized. Presentation: cephalic Placenta: Placental site: posterior Umbilical cord: Cord vessels: 3 vessel cord Amniotic fluid: MVP 4.5 cm. ZEN 15.9 cm. Q1 3.7 cm, Q2 3.9 cm, Q3 3.9 cm, Q4 4.5 cm Biometry Standard BPD 87.5 mm 35w 2d 78% Hadlock OFD 110.5 mm 67% INTERGROWTH-21st HC 311.8 mm 34w 6d 29% Hadlock Cerebellum tr 45.2 mm 34w 3d 68% Mata AC 288.9 mm 32w 6d 17% Hadlock Femur 66.8 mm 34w 3d 43% Hadlock HC / AC 1.08 EFW 2,268 g 33w 3d 30% Hadlock EFW (lb) 5 lb EFW (oz) 0 oz EFW by: Hadlock ([id number]) Extended Invoice Clerk 1.6 mm Head / Face / Neck Cephalic index 0.79 35% Nicolaides Extremities / Bony Struc FL / BPD 0.76 FL / HC 0.21 FL / AC 0.23 Other Structures FHR 154 bpm Anatomy Cranium: Normal Lateral ventricles: Normal Midline falx: Normal Cavum septi pellucidi: Normal Cerebellum: Normal Cisterna magna: Normal Head / Neck Rt lateral ventricle: Normal Lt lateral ventricle: Normal Thalami: Normal Cerebellar lobes: Normal Lips: Normal Profile: Normal Nose: Normal 4-chamber view: Normal RVOT view: Normal LVOT view: Normal 3-vessel view: suboptimal Heart / Thorax Cardiac axis: Normal Diaphragm: Normal Stomach: Normal Kidneys: Normal Bladder: visualized Abdomen Stomach: correct situs Rt kidney: Normal Lt kidney: Normal Large bowel: Normal Arms: suboptimal Legs: suboptimal sex: male Wants to know sex: yes Maternal Structures Uterus / Cervix Uterus: Normal Ovaries / Tubes / Adnexa Rt ovary: Normal Lt ovary: Normal Method ====== Transabdominal ultrasound examination. View: Suboptimal view: limited by late gestational age [facility] Urinalysis macro (dipstick) panel (U)on 09-07-2024 Bilirubin, UA Negative Negative - 4(70) +++ mg/dL [facility] Blood, UA Negative Negative - 50 Delbert/mcL [facility] Clarity, UA Clear [facility] Color, UA Yellow [facility] Glucose, UA Negative Negative - 1999(110) ++++ mg/dL [facility] Interpretation and review of laboratory results Abnormal [facility] Ketones, UA Negative Negative - 160(16) ++++ mg/dL [facility] Leukocytes, UA Trace Negative - 500+++ Baltazar/mcL [facility] Nitrite, UA Negative Negative - Positive [facility] pH, UA 7 5 - 9 [facility] Protein, UA Negative Negative - 1999(20) ++++ mg/dL [facility] Spec Grav, UA 1.02 1 - 1.03 [facility] Urobilinogen, UA 0.2 0.2 - 12 mg/dL [facility] [id number] 09-03-2024 [id number] HNO ID: [id number] Author: ESTRELLA SORTO PT, DPT Service: ? Author Type: Physical Therapist Type: [id number] Filed: 09/03/2024 11:25 Note Text: [facility] Physical Therapy Plan of Care Certification Patient Name: Carol Ann Martinez : 1985 CCF #: [id number] Date: 09/03/2024 To: Janice Lane MD From Therapist: Estrella Sorto PT, DPT RE: Patient Certification/ Recertification Your review, approval and electronic signature are required in order to comply with Payor: [employer] MEDICARE / Plan: [employer] GOLD PLUS / Product Type: HMO / regulations. The identified Physical Therapy PLAN OF CARE for the patient is as follows: M25.551 Right hip pain PLAN OF CARE: Assessment: Carol Ann Martinez presents with chief complaint of R hip pain that interferes with walking, walking in the house, standing, weight bearing . The patient presents with impairments in gait, independence in exercise, range of motion, sensation, and strength. PROMIS? (Patient-Reported Outcomes Measurement Information System) scores were reviewed and identified as a rehabilitation concern. Prognosis for therapy is Fair due to: clinical presentation, limited tolerance to activity . Pt is restricted in activity through pelvic rest at this time, so discussed reviewing restrictions with OBGYN physician in regards to walking and PT exercises and encouraged pt to complete within allowance of restrictions. Discussed potential benefits of pelvic PT, particularly from a standpoint, and discussing with referring provider to determine appropriateness. The patient will benefit from skilled therapy services to meet the goals established for this plan of care as noted below. Patient's symptoms are predicted to improve appropriately with physical therapy. Pt presents with personal factors/comorbidities that may affect expected progress. Patient demonstrates moderate disability/functional limitations based on functional outcome measure score. Evaluation required moderate decision making skills. Goals for Episode of Care: established 09/03/24 [place] in home exercise program. Patient will decrease pain rating by 2 points to meet minimal clinical important difference for numeric pain rating scale. Patient will demonstrate increase in bilateral LE strength to 4+/5 during manual muscle testing in order to improve function for basic self-care tasks, leisure / recreation skills, and light functional tasks. Pt will report being able to walk for at least 5-10 minutes with pain <2/10 to improve tolerance through ambulation. Patient Goals: Help with hip pain and get stronger Time Frame for Goals and Treatment : 10/29/24 Planned Interventions, Frequency, and Duration: Current Frequency: 1x every other week Duration: 8 weeks Total Number of Visits Planned: 4 Planned Treatment Interventions: Therapeutic exercise (96709), Neuromuscular re-education (68481), Manual therapy (55095), Therapeutic activities (28287), Self-usp management (61423), Gait Training (09512), Patient/Family/Caregiver Education PLAN FOR NEXT VISIT: Continue with hip strength as tolerated, introduce PPT. Patient demonstrates good understanding of plan of care and treatment. The above goals and plan of care were discussed and agreed upon by patient/family. For further details regarding this patient refer to the Physical Therapy electronically documented visit dated 09/03/2024. Provider Attestation I have reviewed the treatment plan for LIVIA Card# [id number] for the period of 09/03/24 -- 11/02/24, established on 09/03/2024. Signature certifies the need for therapy services. Normal [facility] CNTHERAPYon 09-03-2024 CNTHERAPY OT/PT/Speech Visit (LOPTRM) ----- CAROL ANN MARTINEZ ([id number]) 1985 F Date Time Provider Department 09/03/24 8:45 AM ESTRELLA SORTO Date Time Provider Department Center 09/03/2024 8:45 AM [id number] SORTO Reason for Visit: PT Eval [747] Patient Education [91] Visit Diagnosis:Right hip pain [M25.551] Allergies As of Date: 09/03/2024 Noted Allergy Reaction GLUTEN 03/19/2019 14 - [...] Vomiting More constipated More constipated Date Reviewed: 08/30/2024 Reviewed by: rAt Swenson OD - Fully Assessed Prescriptions as of 09/03/2024 - methylPREDNISolone (MEDROL DOSE-PACK) 4 mg Dose-Pack Day 1: 6 tablets Day 2: 5 tablets Day 3: 4 tablets Day 4: 3 tablets Day 5: 2 tablets Day 6: 1 tablet - amoxicillin (AMOXIL) 875 mg tablet Take 875 mg by mouth. - OTC NUTRITIONAL SUPPLEMENT Take 1 Each by mouth two times a day. Drink 2 drinks per day. Patient preference to brand and flavor - mometasone (ELOCON) 0.1 % cream Apply to affected area once daily. - glatiramer (COPAXONE) 40 mg/mL injection Inject 40 mg subcutaneously every Friday, Friday, and Friday. - magnesium oxide (MAG-OX) 400 mg (241.3 mg magnesium) tablet Take 1 tablet by mouth daily at bedtime. - cholecalciferol (VITAMIN D-3) 5,000 unit tab Take 1 tablet by mouth once daily. - ketoconazole (NIZORAL) 2 % shampoo 2-3 times weekly as body wash - vitamin B complex with C-FA-CU-ZN renal vitamins (DIATX ZN) 5-1.5-25 mg tab Take by mouth every 24 hours. - FERROUS SULFATE ORAL Take by mouth every 24 hours. - multivitamin with minerals (MULTIPLE VITAMIN-MINERALS) tablet Take 1 tablet by mouth every 24 hours. - ketoconazole (NIZORAL) 2 % cream Apply to affected area once daily. Apply qd - tiZANidine (ZANAFLEX) 2 mg tablet Take 1 tablet by mouth every 8 hours as needed. - VITAMIN B COMPLEX ORAL Take by mouth. - fluticasone (FLONASE) 50 mcg/actuation nasal spray Use 1 [place] in each nostril once daily. Detail Manager: Therapy (PT/OT/Speech/Resp) ID: [id number] 09/03/2024 9:22 AM Author: ESTRELLA SORTO Signed by ESTRELLA SOROT PT, DPT on 09/03/2024 at 9:22 AM Document text: Program_ID:[id number] Access Code: [email or web address] URL: [email or web address] Date: 09-03-2024 Prepared By: Estrella Sorto Program Notes Exercises - Seated Hip Adduction Isometrics with Ball - 1-3 x daily - 7 x weekly - 2-3 sets - 10 reps - Seated Hip Abduction with Resistance - 1-3 x daily - 7 x weekly - 2-3 sets - 10 reps Normal [facility] THERAPY NTon 09-03-2024 THERAPY NT HNO ID: [id number] Author: ESTRELLA SORTO, PT, DPT Service: ? Author Type: Physical Therapist Type: Therapy (PT/OT/Speech/Resp) Filed: 09/03/2024 09:22 Note Text: Program_ID:[id number] Access Code: [email or web address] URL: [email or web address] Date: 09-03-2024 Prepared By: Estrella Sorto Program Notes Exercises - Seated Hip Adduction Isometrics with Ball - 1-3 x daily - 7 x weekly - 2-3 sets - 10 reps - Seated Hip Abduction with Resistance - 1-3 x daily - 7 x weekly - 2-3 sets - 10 reps Normal [facility] Urinalysis macro (dipstick) panel (U)on 08-24-2024 Bilirubin, UA Negative Negative - 4(70) +++ mg/dL [facility] Blood, UA Negative Negative - 50 Delbert/mcL [facility] Clarity, UA Clear [facility] Color, UA Yellow [facility] Glucose, UA Negative Negative - 1999(110) ++++ mg/dL [facility] Interpretation and review of laboratory results Normal [facility] Ketones, UA Negative Negative - 160(16) ++++ mg/dL [facility] Leukocytes, UA Negative Negative - 500+++ Baltazar/mcL [facility] Nitrite, UA Negative Negative - Positive [facility] pH, UA 6.5 5 - 9 [facility] Protein, UA Negative Negative - 1999(20) ++++ mg/dL [facility] Spec Grav, UA 1.025 1 - 1.03 [facility] Urobilinogen, UA 0.2 0.2 - 12 mg/dL [facility] No Panel Informationon 08-17 Interpreted by: Ordoñez , Marina Indication ======== Growth for AMA Multigravida, Maternal [...] on a limited survey -BPP Score is 88 Thank you allowing us to participate in the care of your patient Follow-up ======== Per [facility] visit to follow, plan for serial [...] EFW (oz) 4 oz EFW by: Hadlock ([id number]) Extended Invoice Clerk 3.4 mm Head / Face / Neck [...] movements 2: tone 2: Amniotic fluid volume 8/8 Biophysical profile score Maternal Structures Uterus / [...] Disorder, Cervical Shortening. History ====== General History Zpthta354 cm Height (ft)5 ft Height (in)6 in Previous Outcomes Gravida2 Para1 Children born living ?37w1 Pregnancies delivered at term (T)1 Living children (L)1 Other:Vaginal Delivery Maternal Assessment Hwlbna953 cm Height (ft)5 ft Height (in)6 in Vwyvbc12 kg Weight (lb)131 lb Weight gain0 kg Weight gain (lb)0 lb BMI21.14 kg/m Physical Exam Initial weight (lb)131 lb ========= Tony . Number of fetuses: 1 Dating ====== GA by prior [id number] w + 6 d ELLIOTT by prior [...] care of your patient Follow-up ======== Per [facility] visit to follow, plan for serial [...] (lb)3 lb EFW (oz)4 oz EFW by:Hadlock ([id number]-FL) Extended Vp3.4 mm Head / Face / Neck Cephalic index0.77 24% Nicolaides Extremities / Bony Struc FL / BPD0.75 FL / HC0.20 FL / AC0.22 Other Structures PUT283 bpm Anatomy Cranium:Normal Lateral ventricles:Normal Midline falx:Normal [...] movements 2: tone 2: Amniotic fluid volume 8/8 Biophysical profile score Maternal Structures Uterus / Cervix Uterus:Normal Cervix:Suboptimal Ovaries / Tubes / Adnexa Rt ovary:Not visualized Lt ovary:Not visualized Method ====== Transabdominal ultrasound examination. View: Suboptimal view: limited by late gestational age Indication ======== Growth for AMA Multigravida, Maternal Thyroid Disorder, Cervical Shortening. History ====== General History Fccapc699 cm Height (ft)5 ft Height (in)6 in Previous Outcomes Gravida2 Para1 Children born living ?37w1 Pregnancies delivered at term (T)1 Living children (L)1 Other:Vaginal Delivery Maternal Assessment Chmfjn438 cm Height (ft)5 ft Height (in)6 in Pcppal50 kg Weight (lb)131 lb Weight gain0 kg Weight gain (lb)0 lb BMI21.14 kg/m Physical Exam Initial weight (lb)131 lb ========= Tony . Number of fetuses: 1 Dating ====== GA by prior [id number] w + 6 d ELLIOTT by prior [...] participate in the (more content not included)... [facility] Work Phone: Radiology Study observation (narrative) [facility] Work Phone: No Panel InformationOrdered By: Marina Ordoñez on 08-17-2024 [facility] Work Phone: POCT UA Automated manually r esultedon 08-17-2024 Appearance (U) Clear Clear [facility] Work Phone: Glucose Test strip (U) [Mass/Vol] Negative NEGATIVE mg/dl [facility] Work Phone: Hemoglobin Ql (U) Negative NEGATIVE [facility] Work Phone: Interpretation and review of laboratory results Normal [facility] Work Phone: Leukocyte esterase Test strip Ql (U) Negative NEGATIVE [facility] Work Phone: [phone] Nitrite Ql (U) Negative NEGATIVE [facility] Work Phone: pH (U) 7.0 [pH] No Reference Range Established [facility] Work Phone: [phone] POC Bilirubin, Urine Negative NEGATIVE [facility] Work Phone: [phone] POC Color, Urine Yellow Straw, Yellow, Light-Yellow [facility] Work Phone: [phone] POC Ketones, Urine Negative NEGATIVE mg/dl [facility] Work Phone: [phone] POC Protein, Urine Negative NEGATIVE, 30 (1+) mg/dl [facility] Work Phone: POC Specific [place], Urine 1.025 1.005 - 1.035 [facility] Work Phone: POC Urobilinogen, Urine 0.2 0.2, 1.0 EU/DL [facility] Work Phone: [facility] Work Phone: US BIOPHYSICAL PROFILE WO NON STRESS TESTINGon 08-17-2024 US BIOPHYSICAL PROFILE WO NON STRESS TESTING Interpreted by: Marina Ordoñez Indication ======== Growth [...] Weight gain (lb) 0 lb BMI 21.14 kg/m??? Physical Exam Initial weight (lb) 131 lb [...] on a limited survey -BPP Score is 8 Thank you allowing us to participate in the care of your patient Follow-up ======== Per [facility] visit to follow, plan for serial [...] EFW (oz) 4 oz EFW by: Hadlock ([id number]-FL) Extended Invoice Clerk 3.4 mm Head / Face / Neck [...] movements 2: tone 2: Amniotic fluid volume 8/8 Biophysical profile score Maternal Structures Uterus / [...] Weight gain (lb) 0 lb BMI 21.14 kg/m??? Physical Exam Initial weight (lb) 131 lb [...] us to participate in the care of yo (more content not included)... [facility] US OB FOLLOW UP TRANSABDOMIN AL APPROACHon 08-17-2024 OB FOLLOW UP TRANSABDOMINAL APPROACH Interpreted by: Marina Ordoñez Indication ======== Growth [...] Weight gain (lb) 0 lb BMI 21.14 kg/m??? Physical Exam Initial weight (lb) 131 lb [...] care of your patient Follow-up ======== Per [facility] visit to follow, plan for serial [...] EFW (oz) 4 oz EFW by: Hadlock ([id number]-OB-FL) Extended Invoice Clerk 3.4 mm Head / Face / Neck [...] movements 2: tone 2: Amniotic fluid volume 8 Biophysical profile score Maternal Structures Uterus / [...] Weight gain (lb) 0 lb BMI 21.14 kg/m??? Physical Exam Initial weight (lb) 131 lb [...] us to participate in the care of yo (more content not included)... Normal [facility] Urinalysis macro (dipstick) panel (U)on 08-10-2024 Bilirubin, UA Negative Negative - 4(70) +++ mg/dL [facility] Blood, UA Negative Negative - 50 Delbert/mcL [facility] Clarity, UA Clear [facility] Color, UA Yellow [facility] Glucose, UA Negative Negative - 1999(110) ++++ mg/dL [facility] Interpretation and review of laboratory results Normal [facility] Ketones, UA Negative Negative - 160(16) ++++ mg/dL [facility] Leukocytes, UA Negative Negative - 500+++ Baltazar/mcL [facility] Nitrite, UA Negative Negative - Positive [facility] pH, UA 5.5 5 - 9 [facility] Protein, UA Negative Negative - 2000(20) ++++ mg/dL [facility] Spec Grav, UA 1.015 1 - 1.03 [facility] Urobilinogen, UA 1.0 0.2 - 12 mg/dL [facility] CBC W Auto Differential pane l (Bld)on 07-19-2024 Basophils (Bld) [#/Vol] 0.05 10*3/uL Normal <0.11 [facility] Comment on above: Order Comment: Speci men Type: BLOOD SPECIMENOrdering Facility: [facility] Address: [address] [place] [address] Performed By: #### 5 7021-8 ####[facility] LABCLIA [id number] [place] [address] [place] Basophils/100 WBC (Bld) 0.6 % Normal [facility] Comment on above: Order Comment: Speci men Type: BLOOD SPECIMENOrdering Facility: [facility] Address: [address] [place] [address] Performed By: #### 5 7021-8 ####[facility] LABCLIA [id number] [place] [address] [place] Differential cell count method Nom (Bld) Auto Normal [facility] Comment on above: Order Comment: Speci men Type: BLOOD SPECIMENOrdering Facility: [facility] Address: [address] [place] [address] Performed By: #### 5 7021-8 ####[facility] LABCLIA [id number] [place] [address] [place] Eosinophils (Bld) [#/Vol] 0.10 10*3/uL Normal <0.46 [facility] Comment on above: Order Comment: Speci men Type: BLOOD SPECIMENOrdering Facility: [facility] Address: [address] [place] [address] Performed By: #### 5 7021-8 ####[facility] LABCLIA [id number] [place] [address] [place] Eosinophils/100 WBC (Bld) 1.2 % Normal [facility] Comment on above: Order Comment: Speci men Type: BLOOD SPECIMENOrdering Facility: [facility] Address: [address] [place] [address] Performed By: #### 5 7021-8 ####[facility] LABCLIA [id number] [place] [address] [place] Erythrocyte distribution width (RBC) [Ratio] 14.7 % Normal 11.5-15.0 [facility] Comment on above: Order Comment: Speci men Type: BLOOD SPECIMENOrdering Facility: [facility] Address: [address] [place] [address] Performed By: #### 5 7021-8 ####[facility] LABIA [id number] [place] [address] [place] Hematocrit (Bld) [Volume fraction] 39.3 % Normal 36.0-46.0 [facility] Comment on above: Order Comment: Speci men Type: BLOOD SPECIMENOrdering Facility: [facility] Address: [address] [place] [address] Performed By: #### 5 7021-8 ####[facility] LABIA [id number] [place] [address] [place] Hemoglobin (Bld) [Mass/Vol] 12.4 g/dL Normal 11.5-15.5 [facility] Comment on above: Order Comment: Speci men Type: BLOOD SPECIMENOrdering Facility: [facility] Address: [address] [place] [address] Performed By: #### 5 7021-8 ####[facility] LABIA [id number] [place] [address] [place] Immature granulocytes (Bld) [#/Vol] 0.04 10*3/uL Normal <0.10 [facility] Comment on above: Order Comment: Speci men Type: BLOOD SPECIMENOrdering Facility: [facility] Address: [address] [place] [address] Performed By: #### 5 7021-8 ####[facility] LABIA [id number] [place] [address] [place] Immature granulocytes/100 WBC (Bld) 0.5 % Normal [facility] Comment on above: Order Comment: Speci men Type: BLOOD SPECIMENOrdering Facility: [facility] Address: [address] [place] [address] Performed By: #### 5 7021-8 ####[facility] LABCLIA [id number] [place] [address] [place] Lymphocytes (Bld) [#/Vol] 1.58 10*3/uL Normal 1.00-4.00 [facility] Comment on above: Order Comment: Speci men Type: BLOOD SPECIMENOrdering Facility: [facility] Address: [address] [place] [address] Performed By: #### 5 7021-8 ####[facility] LABCLIA [id number] [place] [address] [place] Lymphocytes/100 WBC (Bld) 19.1 % Normal [facility] Comment on above: Order Comment: Speci men Type: BLOOD SPECIMENOrdering Facility: [facility] Address: [address] [place] [address] Performed By: #### 5 7021-8 ####[facility] LABCLIA [id number] [place] [address] [place] MCH (RBC) [Entitic mass] 27.1 pg Normal 26.0-34.0 [facility] Comment on above: Order Comment: Speci men Type: BLOOD SPECIMENOrdering Facility: [facility] Address: [address] [place] [address] Performed By: #### 5 7021-8 ####[facility] LABCLIA [id number] [place] [address] [place] MCHC (RBC) [Mass/Vol] 31.6 g/dL Normal 30.5-36.0 [facility] Comment on above: Order Comment: Speci men Type: BLOOD SPECIMENOrdering Facility: [facility] Address: [address] [place] [address] Performed By: #### 5 7021-8 ####[facility] LABCLIA [id number] [place] [address] [place] MCV (RBC) [Entitic vol] 86.0 fL Normal 80.0-100.0 [facility] Comment on above: Order Comment: Speci men Type: BLOOD SPECIMENOrdering Facility: [facility] Address: [address] [place] [address] Performed By: #### 5 7021-8 ####[facility] LABCLIA [id number] [place] [address] [place] Monocytes (Bld) [#/Vol] 0.58 10*3/uL Normal <0.87 [facility] Comment on above: Order Comment: Speci men Type: BLOOD SPECIMENOrdering Facility: [facility] Address: [address] [place] [address] Performed By: #### 5 7021-8 ####[facility] LABIA [id number] [place] [address] [place] Monocytes/100 WBC (Bld) 7.0 % Normal [facility] Comment on above: Order Comment: Speci men Type: BLOOD SPECIMENOrdering Facility: [facility] Address: [address] [place] [address] Performed By: #### 5 7021-8 ####[facility] LABCLIA [id number] [place] [address] [place] Neutrophils (Bld) [#/Vol] 5.91 10*3/uL Normal 1.45-7.50 [facility] Comment on above: Order Comment: Speci men Type: BLOOD SPECIMENOrdering Facility: [facility] Address: [address] [place] [address] Performed By: #### 5 7021-8 ####[facility] LABCLIA [id number] [place] [address] [place] Neutrophils/100 WBC (Bld) 71.6 % Normal [facility] Comment on above: Order Comment: Speci men Type: BLOOD SPECIMENOrdering Facility: [facility] Address: [address] [place] [address] Performed By: #### 5 7021-8 ####[facility] LABCLIA [id number] [place] [address] [place] Nucleated RBC (Bld) [#/Vol] 10*3/uL Normal <0.01 [facility] Comment on above: Order Comment: Speci men Type: BLOOD SPECIMENOrdering Facility: [facility] Address: [address] [place] [address] Performed By: #### 5 7021-8 ####[facility] LABCLIA [id number] [place] [address] [place] Nucleated RBC/100 WBC (Bld) [Ratio] 0.0 /100 WBC Normal [facility] Comment on above: Order Comment: Speci men Type: BLOOD SPECIMENOrdering Facility: [facility] Address: [address] [place] [address] Performed By: #### 5 7021-8 ####[facility] LABCLIA [id number] [place] [address] [place] Platelet mean volume (Bld) [Entitic vol] 13.2 fL High 9.0-12.7 [facility] Comment on above: Order Comment: Speci men Type: BLOOD SPECIMENOrdering Facility: [facility] Address: [address] [place] [address] Performed By: #### 5 7021-8 ####[facility] LABCLIA [id number] [place] [address] [place] Platelets (Bld) [#/Vol] 187 10*3/uL Normal 150-400 [facility] Comment on above: Order Comment: Speci men Type: BLOOD SPECIMENOrdering Facility: [facility] Address: [address] [place] [address] Performed By: #### 5 7021-8 ####[facility] LABIA [id number] [place] [address] [place] RBC (Bld) [#/Vol] 4.57 10*6/uL Normal 3.90-5.20 [facility] Comment on above: Order Comment: Speci men Type: BLOOD SPECIMENOrdering Facility: [facility] Address: [address] [place] [address] Performed By: #### 5 7021-8 ####[facility] LABIA [id number] [place] [address] [place] WBC (Bld) [#/Vol] 8.26 10*3/uL Normal 3.70-11.00 [facility] Comment on above: Order Comment: Speci men Type: BLOOD SPECIMENOrdering Facility: [facility] Address: [address] [place] [address] Performed By: #### 5 7021-8 ####[facility] LABIA [id number] [place] [address] [place] CNOVon 07-19-2024 CNOV Office Visit ([facility] ) ----- CAROL ANN MARTINEZ ([id number]) 1985 F Date Time Provider Department 07/19/24 12:[address] [facility] During your visit today, we recorded [...] the hip. She is not taken anything hguk-nqa-hfphtue for it. Patient has multiple sclerosis. Her [...] few seconds when she was on a hkghx-ky-yvmex with her daughter. 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 Normal [facility] Comprehensive metabolic 2000 panelon 07-19-2024 Albumin [Mass/Vol] 3.7 g/dL Low 3.9-4.9 [facility] Comment on above: Order Comment: Speci men Type: BLOOD SPECIMENOrdering Facility: [facility] Address: [address] [place] [address] Performed By: #### 2 4323-8, 2275- ####[facility] LABCLIA [id number] [place] [address] [place] ALP [Catalytic activity/Vol] 62 U/L Normal 34-123 [facility] Comment on above: Order Comment: Speci men Type: BLOOD SPECIMENOrdering Facility: [facility] Address: [address] [place] [address] Performed By: #### 2 4323-8, 2276-02 ####[facility] LABCLIA [id number] [place] [address] [place] ALT [Catalytic activity/Vol] 15 U/L Normal 7-38 [facility] Comment on above: Order Comment: Speci men Type: BLOOD SPECIMENOrdering Facility: [facility] Address: [address] [place] [address] Performed By: #### 2 4323-8, 2276-02 ####[facility] LABCLIA [id number] [place] [address] [place] Anion gap [Moles/Vol] 10 mmol/L Normal 8-15 [facility] Comment on above: Order Comment: Speci men Type: BLOOD SPECIMENOrdering Facility: [facility] Address: [address] [place] [address] Performed By: #### 2 4323-8, 2275- ####[facility] LABCLIA [id number] [place] [id number] [place] AST [Catalytic activity/Vol] 18 U/L Normal 13-35 [facility] Comment on above: Order Comment: Speci men Type: BLOOD SPECIMENOrdering Facility: [facility] Address: [address] [place] [address] Performed By: #### 2 4323-8, 2276-02 ####[facility] LABCLIA [id number] [place] [address] [place] Bilirubin [Mass/Vol] 0.4 mg/dL Normal 0.2-1.3 [facility] Comment on above: Order Comment: Speci men Type: BLOOD SPECIMENOrdering Facility: [facility] Address: [address] [place] [address] Performed By: #### 2 4323-8, 2276-02 ####[facility] LABCLIA [id number] [place] [address] [place] Calcium [Mass/Vol] 9.4 mg/dL Normal 8.5-10.2 [facility] Comment on above: Order Comment: Speci men Type: BLOOD SPECIMENOrdering Facility: [facility] Address: [address] [place] [address] Performed By: #### 2 4323-8, 2276-02 ####[facility] LABCLIA [id number] [place] [address] [place] Chloride [Moles/Vol] 104 mmol/L Normal 98-107 [facility] Comment on above: Order Comment: Speci men Type: BLOOD SPECIMENOrdering Facility: [facility] Address: [address] [place] [address] Performed By: #### 2 4323-8, 2276-02 ####[facility] LABCLIA [id number] [place] [address] [place] CO2 [Moles/Vol] 22 mmol/L Normal 22-30 [facility] Comment on above: Order Comment: Speci men Type: BLOOD SPECIMENOrdering Facility: [facility] Address: [address] [place] [address] Performed By: #### 2 4323-8, 2275-4 ####[facility] LABIA [id number] [place] [address] [place] Creatinine [Mass/Vol] 0.62 mg/dL Normal 0.58-0.96 [facility] Comment on above: Order Comment: Speci men Type: BLOOD SPECIMENOrdering Facility: [facility] Address: [address] [place] [address] Performed By: #### 2 4323-8, 2275-4 ####[facility] [id number] [place] [address] [place] Creatinine and Glomerular filtration rate.predicted panel (S/P/Bld) 117 mL/min/1.73m??? Normal >=60 [facility] Comment on above: Order Comment: Rylee men Type: BLOOD SPECIMENOrdering Facility: [facility] Address: [address] [place] [address] Result Comment: Priscila mated Glomerular Filtration Rate [...] actual GFR. Performed By: #### 2 4323-8, 2275- ####[facility] LABIA [id number] [place] [id number] [place] Glucose [Mass/Vol] 58 mg/dL Low 74-99 [facility] Comment on above: Order Comment: Speci men Type: BLOOD SPECIMENOrdering Facility: [facility] Address: [address] [place] [address] Result Comment: The [place] [employer] (ADA) provides guidance for cutoff [...] Standards of Medical Care in Diabetes 2016, [place] [employer]. Diabetes Care. 2016.39(Suppl 1). Performed By: #### 2 432-8, 2276-02 ####[facility] LABCLIA [id number] [place] [address] [place] Potassium [Moles/Vol] 3.9 mmol/L Normal 3.7-5.1 [facility] Comment on above: Order Comment: Speci men Type: BLOOD SPECIMENOrdering Facility: [facility] Address: [address] [place] [address] Performed By: #### 2 4323-06, 2276-02 ####[facility] LABCLIA [id number] [place] [address] [place] Protein [Mass/Vol] 7.1 g/dL Normal 6.3-8.0 [facility] Comment on above: Order Comment: Speci men Type: BLOOD SPECIMENOrdering Facility: [facility] Address: [address] [place] [address] Performed By: #### 2 4328, 2276-02 ####[facility] LABCLIA [id number] [facility] [place] [id number] [place] Sodium [Moles/Vol] 136 mmol/L Normal 136-144 [facility] Comment on above: Order Comment: Speci men Type: BLOOD SPECIMENOrdering Facility: [facility] Address: [address] [place] [address] Performed By: #### 2 4323-8, 2276-02 ####[facility] LABCLIA [id number] [place] [id number] [place] Urea nitrogen [Mass/Vol] 8 mg/dL Normal 7-21 [facility] Comment on above: Order Comment: Speci men Type: BLOOD SPECIMENOrdering Facility: [facility] Address: [address] [place] [address] Performed By: #### 2 4323-8, 2276-4 ####[facility] LABCLIA [id number] [place] [id number] [place] Ferritin SerPl-mCncon 2023 Ferritin [Mass/Vol] 36.5 ng/mL Normal 14.7-205.1 [facility] Comment on above: Order Comment: Specjoshua chauhan Type: BLOOD SPECIMENOrdering Facility: [facility] Address: [address] [place] [address] Performed By: #### 2 4323-8, 2276-4 ####[facility] LABCLIA [id number] [place] [id number] [place] POLYSOMNOGRAM (PSG)/HOME SLE EP APNEA TEST (HSAT)on 07-03-2024 POLYSOMNOGRAM (PSG)/HOME SLEEP APNEA TEST (HSAT) [facility] at [address], [address] [address] ; Home Sleep Apnea Test (HSAT) Study Report Name: CAROL ANN MARTINEZ Date of Study: 07/03/2024 [facility]#: [id number] Age: 38 (: 1985) ESS: 0/24 Neck Circ. (cm): 33.0 Height (cm): 168.0 [...] Pertinent medical history: Hypothyroidism, Seizures, MS Medications: [facility] Sleep procedure: PSG unattended Type III, minimum of 4 parameters (33052) Procedure: This study was performed using a Type III ambulatory PSG device and was unattended. The patient was instructed on proper use of the device by a registered fastener technologist. The monitored parameters included heart rate, [...] suspected. INTERPRETING PHYSICIAN: MG Marisol DO, MARIEL ATKINSON I attest that I have performed epoch by epoch review of the entire raw data and find this study to be technically adequate. Report Digitally Signed By: Sam Damon (07/08/2024 4:02:15 PM) Normal [facility] OB LIMITED 1+ FETUSESon 0 07-02-2024 OB LIMITED 1+ FETUSES Interpreted by: Radha Batres Indication ======== Cervical Length Assessment, Cervical Shortening, AMA Multigravida, Maternal Thyroid Disorder. History ====== General History Height 168 cm [...] Weight gain (lb) 0 lb BMI 21.14 kg/m??? Physical Exam Initial weight (lb) 131 lb ========= Tony . Number of fetuses: 1 Dating ====== GA by prior assessment 23 w + 2 d ELLIOTT by prior assessment: 10/27/2024 Assigned: based on stated ELLIOTT, selected on 06/14/2024 Assigned GA 23 w + 2 d Assigned ELLIOTT: 10/27/2024 Growth Overview Exam date GA BPD (mm) HC (mm) AC (mm) FL (mm) HL (mm) EFW (g) 06/14/2024 20w 5d 49.8 64% 183.3 41% 164.9 71% 33.9 39% 33.5 54% 398 65% Impression ========= - biometry was not repeated due to the short scan interval -Transvaginal evaluation in addition to transabdominal scanning was indicated and performed due to the increased accuracy of a transvaginal evaluation to determine cervical length. -Cervical length by transvaginal approach measures 22.9 mm (range 22 to 24 mm) -It is stable as compared to the previous evaluation -There is no funneling Patient denies contractions/VB/LOF/press ure. PTL precautions reviewed and patient advised to contact OB if any worrisome symptoms develop. Patient instructed to continue precautions until her next OB appointment. Given gestational age (23.3 weeks), cervical length measurement will not be repeated. Thank you for allowing us to participate in your patient's care. Follow-up ======== A repeat evaluation has been scheduled at 30 weeks for growth due to h/o FGR in prior General Evaluation Cardiac activity present. FHR 157 bpm. movements: visualized. Presentation: cephalic Placenta: Placental site: posterior, No Previa Seen Umbilical cord: Cord vessels: 3 vessel cord Amniotic fluid: Amount of AF: normal amount Maternal Structures Uterus / Cervix Uterus: Visualized Cervix: Visualized Cervix details: Short Approach: Transvaginal Cervical length 22.9 mm Ovaries / Tubes / Adnexa Rt ovary: Visualized Rt ovary details: Normal Lt ovary: Not visualized Method ====== Transabdominal and transvaginal ultrasound examination. View: Good Indication ======== Cervical Length Assessment, Cervical Shortening, AMA Multigravida, Maternal Thyroid Disorder. History ====== General History Height 168 cm [...] Weight gain (lb) 0 lb BMI 21.14 kg/m??? Physical Exam Initial weight (lb) 131 lb ========= Tony . Number of fetuses: 1 Dating ====== GA by prior assessment 23 w + 2 d ELLIOTT by prior assessment: 10/27/2024 Assigned: based on stated ELLIOTT, selected on 06/14/2024 Assigned GA 23 w + 2 d Assigned ELLIOTT: 10/27/2024 Growth Overview Exam date GA BPD (mm) HC (mm) AC (mm) FL (mm) HL (mm) EFW (g) 06/14/2024 20w 5d 49.8 64% 183.3 41% 164.9 71% 33.9 39% 33.5 54% 398 65% Impression ========= - biometry was not repeated due to the short scan interval -Transvaginal evaluation in addition to transabdominal scanning was indicated and performed due to the increased accuracy of a transvaginal evaluation to determine cervical length. -Cervical length by transvaginal approach measures 22.9 mm (range 22 to 24 mm) -It is stable as compared to the previous evaluation -There is no funneling Patient denies contractions/VB/LOF/press ure. PTL precautions reviewed and patient advised to contact OB if any worrisome symptoms develop. Patient instructed to continue precautions until her next OB appointment. Given gestational age (23.3 weeks), cervical length measurement will not be repeated. Thank you for allowing us to participate in your patient's care. Follow-up ======== A repeat evaluation has been scheduled at 30 weeks for growth due to h/o FGR in prior General Evaluation Cardiac activity present. FHR 157 bpm. movements: visualized. Presentation: cephalic Placenta: Placental site: posterior, No Previa Seen Umbilical cord: Cord vessels: 3 vessel cord Amniotic fluid: Amount of AF: normal amount Maternal Structures Uterus / Cervix Uterus: Visualiz (more content not included)... Normal [facility] OB TRANSVAGINALon 024 OB TRANSVAGINAL Interpreted by: Radha Viera Indication ======== Cervical Length Assessment, Cervical Shortening, AMA Multigravida, Maternal Thyroid Disorder. History ====== General History Height 168 cm [...] Weight gain (lb) 0 lb BMI 21.14 kg/m??? Physical Exam Initial weight (lb) 131 lb ========= Tony . Number of fetuses: 1 Dating ====== GA by prior assessment 23 w + 2 d ELLIOTT by prior assessment: 10/27/2024 Assigned: based on stated ELLIOTT, selected on 06/14/2024 Assigned GA 23 w + 2 d Assigned ELLIOTT: 10/27/2024 Growth Overview Exam date GA BPD (mm) HC (mm) AC (mm) FL (mm) HL (mm) EFW (g) 06/14/2024 20w 5d 49.8 64% 183.3 41% 164.9 71% 33.9 39% 33.5 54% 398 65% Impression ========= - biometry was not repeated due to the short scan interval -Transvaginal evaluation in addition to transabdominal scanning was indicated and performed due to the increased accuracy of a transvaginal evaluation to determine cervical length. -Cervical length by transvaginal approach measures 22.9 mm (range 22 to 24 mm) -It is stable as compared to the previous evaluation -There is no funneling Patient denies contractions/VB/LOF/press ure. PTL precautions reviewed and patient advised to contact OB if any worrisome symptoms develop. Patient instructed to continue precautions until her next OB appointment. Given gestational age (23.3 weeks), cervical length measurement will not be repeated. Thank you for allowing us to participate in your patient's care. Follow-up ======== A repeat evaluation has been scheduled at 30 weeks for growth due to h/o FGR in prior General Evaluation Cardiac activity present. FHR 157 bpm. movements: visualized. Presentation: cephalic Placenta: Placental site: posterior, No Previa Seen Umbilical cord: Cord vessels: 3 vessel cord Amniotic fluid: Amount of AF: normal amount Maternal Structures Uterus / Cervix Uterus: Visualized Cervix: Visualized Cervix details: Short Approach: Transvaginal Cervical length 22.9 mm Ovaries / Tubes / Adnexa Rt ovary: Visualized Rt ovary details: Normal Lt ovary: Not visualized Method ====== Transabdominal and transvaginal ultrasound examination. View: Good Indication ======== Cervical Length Assessment, Cervical Shortening, AMA Multigravida, Maternal Thyroid Disorder. History ====== General History Height 168 cm [...] Weight gain (lb) 0 lb BMI 21.14 kg/m??? Physical Exam Initial weight (lb) 131 lb ========= Tony . Number of fetuses: 1 Dating ====== GA by prior assessment 23 w + 2 d ELLIOTT by prior assessment: 10/27/2024 Assigned: based on stated ELLIOTT, selected on 06/14/2024 Assigned GA 23 w + 2 d Assigned ELLIOTT: 10/27/2024 Growth Overview Exam date GA BPD (mm) HC (mm) AC (mm) FL (mm) HL (mm) EFW (g) 06/14/2024 20w 5d 49.8 64% 183.3 41% 164.9 71% 33.9 39% 33.5 54% 398 65% Impression ========= - biometry was not repeated due to the short scan interval -Transvaginal evaluation in addition to transabdominal scanning was indicated and performed due to the increased accuracy of a transvaginal evaluation to determine cervical length. -Cervical length by transvaginal approach measures 22.9 mm (range 22 to 24 mm) -It is stable as compared to the previous evaluation -There is no funneling Patient denies contractions/VB/LOF/press ure. PTL precautions reviewed and patient advised to contact OB if any worrisome symptoms develop. Patient instructed to continue precautions until her next OB appointment. Given gestational age (23.3 weeks), cervical length measurement will not be repeated. Thank you for allowing us to participate in your patient's care. Follow-up ======== A repeat evaluation has been scheduled at 30 weeks for growth due to h/o FGR in prior General Evaluation Cardiac activity present. FHR 157 bpm. movements: visualized. Presentation: cephalic Placenta: Placental site: posterior, No Previa Seen Umbilical cord: Cord vessels: 3 vessel cord Amniotic fluid: Amount of AF: normal amount Maternal Structures Uterus / Cervix Uterus: Visualiz (more content not included)... Normal [facility] CNCOon 06-21-2024 CNCO Letter Text Normal [facility] OB DETAIL ANATOMYon 06-14-2024 OB DETAIL ANATOMY Interpreted by: Janice Escobar Indication ======== Detailed Anatomy for AMA Multigravida, Maternal Thyroid Disorder. Cervical Shortening. History ====== General History Height [...] Weight gain (lb) 0 lb BMI 21.14 kg/m??? Physical Exam Initial weight (lb) 131 lb ========= Tony . Number of fetuses: 1 Dating ====== GA by prior assessment 20 w + 5 d ELLIOTT by prior assessment: 10/27/2024 Ultrasound examination on: 06/14/2024 GA by U/S based upon: AC, BPD, Femur, HC GA by U/S 21 w + 0 d ELLIOTT by U/S: 10/25/2024 Assigned: based on stated ELLIOTT, selected on 06/14/2024 Assigned GA 20 w + 5 d Assigned ELLIOTT: 10/27/2024 Growth Overview Exam date GA BPD (mm) HC (mm) AC (mm) FL (mm) HL (mm) EFW (g) 06/14/2024 20w 5d 49.8 64% 183.3 41% 164.9 71% 33.9 39% 33.5 54% 398 65% Impression ========= complicated by AMA, multiple sclerosis and FGR in a prior (birthweight 2353 grams at 38 weeks). She has a history of LEEP A targeted anatomic survey was indicated - biometry is consistent with the stated gestational age -Detailed anatomic evaluation of the brain/ventricles, face, heart/outflow tracts and chest anatomy, abdominal organ specific anatomy, number/length/architectur e of limbs and detailed evaluation of the umbilical cord and placenta and other anatomy as clinically indicated was performed. -No malformations were identified on this comprehensive survey within limitations of sonographic evaluation at this gestational age. The placenta and adnexa appear within normal today. -Today's anatomic survey was completed The cervical length on transvaginal imaging was 2.2 cm without funnel. The patient had an MFM consultation to follow. General Evaluation Cardiac activity present. FHR 158 bpm. movements: visualized. Presentation: cephalic Placenta: Placental site: posterior, No Previa Seen Umbilical cord: Cord vessels: 3 vessel cord. Insertion site: placental insertion: normal Amniotic fluid: Amount of AF: normal amount Biometry Standard BPD 49.8 mm 21w 1d 64% Hadlock OFD 64.6 mm 61% INTERGROWTH-21st HC 183.3 mm 20w 5d 41% Hadlock Cerebellum tr 21.6 mm 20w 5d 58% Mata Nuchal fold 4.0 mm AC 164.9 mm 21w 4d 71% Hadlock Femur 33.9 mm 20w 5d 39% Hadlock Humerus 33.5 mm 54% Chitty HC / AC 1.11 20% Hadlock EFW 398 g 21w 0d 65% Hadlock EFW (lb) 0 lb EFW (oz) 14 oz EFW by: Hadlock ([id number]-FL) Extended Invoice Clerk 5.9 mm CM 3.2 mm 4% Nicolaides Head / Face / Neck Cephalic index 0.77 32% Nicolaides Nasal bone: present Extremities / Bony Struc FL / BPD 0.68 19% Hadlock FL / HC 0.18 15% Hadlock FL / AC 0.21 11% Hadlock Other Structures FHR 158 bpm Anatomy Cranium: Normal Lateral ventricles: Normal Choroid plexus: Normal Midline falx: Normal Cavum septi pellucidi: Normal Cerebellum: Normal Cisterna magna: Normal Head / Neck Head size: Normal Head shape: Normal Rt lateral ventricle: Normal Lt lateral ventricle: Normal Rt choroid plexus: Normal Lt choroid plexus: Normal Thalami: Normal Cerebellar lobes: Normal Vermis: Normal Neck: Normal Neck: No neck masses seen Lips: Normal Profile: Normal Nose: Normal Face Nasal bone: present Maxilla: Normal Mandible: Normal Orbits: Normal 4-chamber view: Normal RVOT view: Normal LVOT view: Normal 3-vessel view: Normal 1-bzztsr-gfwlidu view: Normal Heart / Thorax Situs: situs solitus (normal) Aortic arch view: Normal Bicaval view: Normal Cardiac position: levocardia (normal) Cardiac axis: Normal Cardiac size: normal (approx. 1/3 of thoracic area) Cardiac proportions: proportioned (normal) Cardiac rhythm: regular (normal) Rt lung: Normal Lt lung: Normal Rt diaphragm: Normal Lt diaphragm: Normal Cord insertion: Normal Stomach: Normal Kidneys: Normal Bladder: Normal Genitals: Normal Abdomen Abdom. wall: Normal Stomach: Stomach size and situs appear normal Rt kidney: Normal Lt kidney: Normal Small bowel: Normal Large bowel: Normal Cervical spine: Normal Thoracic spine: Normal Lumbar spine: Normal Sacral spine: Normal Arms: Normal Hands: normal Legs: Normal Feet: normal Rt upper arm: Normal Rt forearm: Normal Rt hand: Normal Rt fingers: Normal Lt upper arm: Normal Lt forearm: Normal Lt hand: Normal Lt fingers: Normal Rt upper leg: Normal Rt lower leg: Normal Rt foot: Normal Rt toes: Normal Lt upper leg: Normal Lt lower leg: Normal Lt neha (more content not included)... Normal [facility] OB TRANSVAGINALon 024 OB TRANSVAGINAL Interpreted by: Janice Keith Indication ======== Detailed Anatomy for AMA Multigravida, Maternal Thyroid Disorder. Cervical Shortening. History ====== General History Height [...] Weight gain (lb) 0 lb BMI 21.14 kg/m??? Physical Exam Initial weight (lb) 131 lb ========= Tony . Number of fetuses: 1 Dating ====== GA by prior assessment 20 w + 5 d ELLIOTT by prior assessment: 10/27/2024 Ultrasound examination on: 06/14/2024 GA by U/S based upon: AC, BPD, Femur, HC GA by U/S 21 w + 0 d ELLIOTT by U/S: 10/25/2024 Assigned: based on stated ELLIOTT, selected on 06/14/2024 Assigned GA 20 w + 5 d Assigned ELLIOTT: 10/27/2024 Growth Overview Exam date GA BPD (mm) HC (mm) AC (mm) FL (mm) HL (mm) EFW (g) 06/14/2024 20w 5d 49.8 64% 183.3 41% 164.9 71% 33.9 39% 33.5 54% 398 65% Impression ========= complicated by AMA, multiple sclerosis and FGR in a prior (birthweight 2353 grams at 38 weeks). She has a history of LEEP A targeted anatomic survey was indicated - biometry is consistent with the stated gestational age -Detailed anatomic evaluation of the brain/ventricles, face, heart/outflow tracts and chest anatomy, abdominal organ specific anatomy, number/length/architectur e of limbs and detailed evaluation of the umbilical cord and placenta and other anatomy as clinically indicated was performed. -No malformations were identified on this comprehensive survey within limitations of sonographic evaluation at this gestational age. The placenta and adnexa appear within normal today. -Today's anatomic survey was completed The cervical length on transvaginal imaging was 2.2 cm without funnel. The patient had an MFM consultation to follow. General Evaluation Cardiac activity present. FHR 158 bpm. movements: visualized. Presentation: cephalic Placenta: Placental site: posterior, No Previa Seen Umbilical cord: Cord vessels: 3 vessel cord. Insertion site: placental insertion: normal Amniotic fluid: Amount of AF: normal amount Biometry Standard BPD 49.8 mm 21w 1d 64% Hadlock OFD 64.6 mm 61% INTERGROWTH-21st HC 183.3 mm 20w 5d 41% Hadlock Cerebellum tr 21.6 mm 20w 5d 58% Mata Nuchal fold 4.0 mm AC 164.9 mm 21w 4d 71% Hadlock Femur 33.9 mm 20w 5d 39% Hadlock Humerus 33.5 mm 54% Chitty HC / AC 1.11 20% Hadlock EFW 398 g 21w 0d 65% Hadlock EFW (lb) 0 lb EFW (oz) 14 oz EFW by: Hadlock (OIS-SH-IA-FL) Extended Invoice Clerk 5.9 mm CM 3.2 mm 4% Nicolaides Head / Face / Neck Cephalic index 0.77 32% Nicolaides Nasal bone: present Extremities / Bony Struc FL / BPD 0.68 19% Hadlock FL / HC 0.18 15% Hadlock FL / AC 0.21 11% Hadlock Other Structures FHR 158 bpm Anatomy Cranium: Normal Lateral ventricles: Normal Choroid plexus: Normal Midline falx: Normal Cavum septi pellucidi: Normal Cerebellum: Normal Cisterna magna: Normal Head / Neck Head size: Normal Head shape: Normal Rt lateral ventricle: Normal Lt lateral ventricle: Normal Rt choroid plexus: Normal Lt choroid plexus: Normal Thalami: Normal Cerebellar lobes: Normal Vermis: Normal Neck: Normal Neck: No neck masses seen Lips: Normal Profile: Normal Nose: Normal Face Nasal bone: present Maxilla: Normal Mandible: Normal Orbits: Normal 4-chamber view: Normal RVOT view: Normal LVOT view: Normal 3-vessel view: Normal 8-kvjqvs-lbrgvzo view: Normal Heart / Thorax Situs: situs solitus (normal) Aortic arch view: Normal Bicaval view: Normal Cardiac position: levocardia (normal) Cardiac axis: Normal Cardiac size: normal (approx. 1/3 of thoracic area) Cardiac proportions: proportioned (normal) Cardiac rhythm: regular (normal) Rt lung: Normal Lt lung: Normal Rt diaphragm: Normal Lt diaphragm: Normal Cord insertion: Normal Stomach: Normal Kidneys: Normal Bladder: Normal Genitals: Normal Abdomen Abdom. wall: Normal Stomach: Stomach size and situs appear normal Rt kidney: Normal Lt kidney: Normal Small bowel: Normal Large bowel: Normal Cervical spine: Normal Thoracic spine: Normal Lumbar spine: Normal Sacral spine: Normal Arms: Normal Hands: normal Legs: Normal Feet: normal Rt upper arm: Normal Rt forearm: Normal Rt hand: Normal Rt fingers: Normal Lt upper arm: Normal Lt forearm: Normal Lt hand: Normal Lt fingers: Normal Rt upper leg: Normal Rt lower leg: Normal Rt foot: Normal Rt toes: Normal Lt upper leg: Normal Lt lower leg: Normal Lt neha (more content not included)... [facility] Christiano 06-11-2024 PAIGE Telephone ([facility]) ----- CAROL ANN MARTINEZ ([id number]) 1985 F Date Time Provider Department 06/11/24 CHAMP BAXTER During your visit today, we recorded the following information about you: Champ Baxter LSW 06/11/2024 9:25 AM Signed This DEZ put in a referral to the [facility] for pt to get connected to additional resources. DEZ Archer, [facility] Social Work Allergies As of Date: 06/11/2024 [...] Date Reviewed: 06/09/2024 Reviewed by: Tor Hernandez APRN.ENVIRONMENTAL PROJECTS ADVISOR - Fully Assessed Reason for Visit: Per Diem Clerk - Other [7812] Prescriptions as of 06/11/2024 - OTC NUTRITIONAL [...] (FLONASE) 50 mcg/actuation nasal spray Use 1 Charlemont in each nostril once daily. Problem List [...] Status:Closed by CHAMP BAXTER on 06/11/24 Normal [facility] Christiano 03-24-2024 CNPN Telephone ([facility]) ----- CAROL ANN MARTINEZ ([id number]) 1985 F Date Time Provider Department 03/24/24 [...] Date Reviewed: 01/19/2024 Reviewed by: Kaitlyn Forbes, cms expert - Fully Assessed Reason for Visit: Appointment [...] (FLONASE) 50 mcg/actuation nasal spray Use 1 Charlemont in each nostril once daily. Problem List [...] deficit [R41.841] 07/22/2022 07/17/2023 Encounter Status:Closed by IVVIANA SANDS on 03/24/24 Normal [facility] HCG,Quantitativeon 4 HCG,Quantitative 644468.00 m[iU]/mL Normal [facility] Comment on above: Result Comment: Appr oximate Approximate hCG Gestational Age Range (mIU/ml) (weeks) 0.2-1 5-50 1-2 50-500 2-3 100-5,000 3-4 500-10,000 4-5 1,000-50,000 5-6 10,000-100,000 6-8 15,000-200,000 8-12 10,000-100,000 PERFORMED BY: [place] [address] PATHOLOGIST [employer] ALEN PRICE M.D. Performed By: #### H CGQNT #### [address] US breast BI limitedon 03-17 US breast BI limited [facility] [address] [place] [address] [id number] Mammography Report Signed Patient: Carol Ann Martinez MR#: [id number] : 1985 Acct:[id number] Age/Sex: 38 / F ADM Date: 03/17/24 Loc: [place] Room: Type: [facility] Attending Dr: Clarke Hu Copies to: Clarke Lane MD Ordering Provider: Clarke Hu Date of Service: 03/17/24 MM/MM diagnostic mammo BI w/CAD: RT BREAST LUMP ([id number]) US/US breast BI limited: BILATERAL BREAST LUMPS [...] Renetta Chin M.D.03/17/2024 9:57 AM Dictation Location: [facility] Transcribed By: MEGHANN 03/17/24 0957 Dictated By: Renetta Chin II, MD 03/17/24 0923 Signed By: 03/17/24 0957 Normal [facility] XR Cervical spine AP and Lat eral and obliqueon 03-08-2024 IMPRESSION: No acute osseous abnormality. Preserved cervical disc spaces and neural foramina. Lens Assistant: ANGEL Transcribe Date/Time: Mar 08 2024 4:48P Dictated by : VIKTORIYA WALTER MD This examination was interpreted and the report reviewed and electronically signed by: VIKTORIYA WALTER MD on Mar 08 2024 4:50PM [facility] DIVISION OF RADIOLOGY * * *Final Report* [...] to the patient. DIVISION OF RADIOLOGY Provider, [facility] - 03/08/2024 * * *Final Report* * [...] Preserved cervical disc spaces and neural foramina. Lens Assistant: ANGEL Transcribe Date/Time: Mar 08 2024 4:48P Dictated by : VIKTORIYA WALTER MD This examination was interpreted and the report reviewed and electronically signed by: VIKTORIYA WALTER MD on Mar 08 2024 4:50PM [facility] XR Lumbar spine 3 Viewson IMPRESSION: Unremarkable radiographic appearance of the lumbar spine. Lens Assistant: PSCB Transcribe Date/Time: Mar 08 2024 4:47P Dictated by : VIKTORIYA WALTER MD This examination was interpreted and the report reviewed and electronically signed by: VIKTORIYA WALTER MD on Mar 08 2024 4:48PM [facility] DIVISION OF RADIOLOGY * * *Final Report* [...] Preserved disc spaces. DIVISION OF RADIOLOGY Provider, Livia Min - 03/08/2024 * * *Final Report* [...] Unremarkable radiographic appearance of the lumbar spine. Lens Assistant: PSCB Transcribe Date/Time: Mar 08 2024 4:47P Dictated by : VIKTORIYA WALTER MD This examination was interpreted and the report reviewed and electronically signed by: VIKTORIYA WALTER MD on Mar 08 2024 4:48PM [facility] XR Lumbar spine 3 ViewsOrder ed By: Ccf Provider on 03-08-2024 [facility] ESR Westergren method (Bld) [Velocity]on 03-05-2024 ESR (Bld) [Velocity] 5 mm/h [facility] Interpretation and review of laboratory results Normal [facility] JOSSELIN BY IFA WITH REFLEXon Nuclear Ab Ql (S) Negative Normal Negative [facility] Comment on above: Order Comment: Speci men Type: BLOOD SPECIMENOrdering Facility: [facility] Address: [address] [place] [address] Result Comment: Anti -nuclear antibody test is used as an aid in diagnosis of systemic autoimmune diseases. Where positive and clinically warranted, follow-up using disease-specific testing is recommended. Low positive titers are not uncommon with advanced age, certain chronic infections, and malignancies among others. Test methodology: Indirect fluorescence immunoassay (IFA) using HEp-2 cells. Performed By: #### A NAIFR ####[facility] LABCLIA [id number] [place] [address] [place] CBC W Auto Differential pane l (Bld)on 03-04-2024 Basophils (Bld) [#/Vol] 0.04 10*3/uL [facility] Basophils/100 WBC (Bld) 0.5 % [facility] Differential cell count method Nom (Bld) Auto [facility] Eosinophils (Bld) [#/Vol] [facility] Eosinophils/100 WBC (Bld) 0.3 % [facility] Erythrocyte distribution width (RBC) [Ratio] 15.2 % High 11.5 - 15.0 % [facility] Hematocrit (Bld) [Volume fraction] 40.1 % 36.0 - 46.0 % [facility] Hemoglobin (Bld) [Mass/Vol] 12.4 g/dL 11.5 - 15.5 g/dL [facility] Immature granulocytes (Bld) [#/Vol] [facility] Immature granulocytes/100 WBC (Bld) 0.3 % [facility] Interpretation and review of laboratory results Abnormal [facility] Lymphocytes (Bld) [#/Vol] 1.62 10*3/uL [facility] Lymphocytes/100 WBC (Bld) 21.7 % [facility] MCH (RBC) [Entitic mass] 24.1 pg Low 26.0 - 34.0 pg [facility] MCHC (RBC) [Mass/Vol] 30.9 g/dL 30.5 - 36.0 g/dL [facility] MCV (RBC) [Entitic vol] 77.9 fL Low 80.0 - 100.0 fL [facility] Monocytes (Bld) [#/Vol] 0.69 10*3/uL [facility] Monocytes/100 WBC (Bld) 9.2 % [facility] Neutrophils (Bld) [#/Vol] 5.08 10*3/uL [facility] Neutrophils/100 WBC (Bld) 68.0 % [facility] Nucleated RBC (Bld) [#/Vol] [facility] Nucleated RBC/100 WBC (Bld) [Ratio] 0.0 % /100 WBC [facility] Platelet mean volume (Bld) [Entitic vol] [facility] Comment on above: Unable to Report. Platelets (Bld) [#/Vol] 185 10*3/uL [facility] Comment on above: Results checked and verified.No clot detected. RBC (Bld) [#/Vol] 5.15 10*6/uL 3.90 - 5.2 0 m/uL [facility] WBC (Bld) [#/Vol] 7.47 10*3/uL [facility] This is an appended report. These results have been appended to a previously verified report. [facility] Basophils (Bld) [#/Vol] 0.04 10*3/uL Normal <0.11 [facility] Comment on above: Order Comment: Speci men Type: BLOOD SPECIMENOrdering Facility: [facility] Address: [address] [place] [address] Performed By: #### 5 7021-8, 4536-7 ####[facility] LABCLIA [id number] [facility] [place] [place] [address] [place] Basophils/100 WBC (Bld) 0.5 % Normal [facility] Comment on above: Order Comment: Speci men Type: BLOOD SPECIMENOrdering Facility: [facility] Address: [address] [place] [address] Performed By: #### 5 7021-8, 4537-7 ####[facility] LABCLIA [id number] [place] [address] [place] Differential cell count method Nom (Bld) Auto Normal [facility] Comment on above: Order Comment: Speci men Type: BLOOD SPECIMENOrdering Facility: [facility] Address: [address] [place] [address] Performed By: #### 5 7021-8, 7-7 ####[facility] LABCLIA [id number] [place] [address] [place] Eosinophils (Bld) [#/Vol] 10*3/uL Normal <0.46 [facility] Comment on above: Order Comment: Speci men Type: BLOOD SPECIMENOrdering Facility: [facility] Address: [address] [place] [address] Performed By: #### 5 7021-8, 7-7 ####[facility] LABCLIA [id number] [facility] [place] [address] [place] Eosinophils/100 WBC (Bld) 0.3 % Normal [facility] Comment on above: Order Comment: Speci men Type: BLOOD SPECIMENOrdering Facility: [facility] Address: [address] [place] [address] Performed By: #### 5 7021-8, 4536-7 ####[facility] LABIA [id number] [place] [address] [place] Erythrocyte distribution width (RBC) [Ratio] 15.2 % High 11.5-15.0 [facility] Comment on above: Order Comment: Speci men Type: BLOOD SPECIMENOrdering Facility: [facility] Address: [address] [place] [address] Performed By: #### 5 7021-8, 453-7 ####[facility] LABCLIA [id number] [place] [address] [place] Hematocrit (Bld) [Volume fraction] 40.1 % Normal 36.0-46.0 [facility] Comment on above: Order Comment: Speci men Type: BLOOD SPECIMENOrdering Facility: [facility] Address: [address] [place] [address] Performed By: #### 5 7021-8, 4536-7 ####[facility] LABIA [id number] [place] [address] [place] Hemoglobin (Bld) [Mass/Vol] 12.4 g/dL Normal 11.5-15.5 [facility] Comment on above: Order Comment: Speci men Type: BLOOD SPECIMENOrdering Facility: [facility] Address: [address] [place] [address] Performed By: #### 5 7021-8, 7-7 ####[facility] LABCLIA [id number] [place] [address] [place] Immature granulocytes (Bld) [#/Vol] 10*3/uL Normal <0.10 [facility] Comment on above: Order Comment: Speci men Type: BLOOD SPECIMENOrdering Facility: [facility] Address: [address] [place] [address] Performed By: #### 5 7021-8, 4536-7 ####[facility] LABCLIA [id number] [place] [address] [place] Immature granulocytes/100 WBC (Bld) 0.3 % Normal [facility] Comment on above: Order Comment: Speci men Type: BLOOD SPECIMENOrdering Facility: [facility] Address: [address] [place] [address] Performed By: #### 5 7021-8, 4536-7 ####[facility] LABCLIA [id number] [place] [address] [place] Lymphocytes (Bld) [#/Vol] 1.62 10*3/uL Normal 1.00-4.00 [facility] Comment on above: Order Comment: Speci men Type: BLOOD SPECIMENOrdering Facility: [facility] Address: [address] [place] [address] Performed By: #### 5 7021-8, 4536-7 ####[facility] LABCLIA [id number] [place] [address] [place] Lymphocytes/100 WBC (Bld) 21.7 % Normal [facility] Comment on above: Order Comment: Speci men Type: BLOOD SPECIMENOrdering Facility: [facility] Address: [address] [place] [address] Performed By: #### 5 7021-8, 4536-7 ####[facility] LABCLIA [id number] [place] [address] [place] MCH (RBC) [Entitic mass] 24.1 pg Low 26.0-34.0 [facility] Comment on above: Order Comment: Speci men Type: BLOOD SPECIMENOrdering Facility: [facility] Address: [address] [place] [address] Performed By: #### 5 7021-8, 4536-7 ####[facility] LABIA [id number] [place] [address] [place] MCHC (RBC) [Mass/Vol] 30.9 g/dL Normal 30.5-36.0 [facility] Comment on above: Order Comment: Speci men Type: BLOOD SPECIMENOrdering Facility: [facility] Address: [address] [place] [address] Performed By: #### 5 7021-8, 4537-7 ####[facility] LABIA [id number] [place] [address] [place] MCV (RBC) [Entitic vol] 77.9 fL Low 80.0-100.0 [facility] Comment on above: Order Comment: Speci men Type: BLOOD SPECIMENOrdering Facility: [facility] Address: [address] [place] [address] Performed By: #### 5 7021-8, 453-7 ####[facility] LABIA [id number] [place] [address] [place] Monocytes (Bld) [#/Vol] 0.69 10*3/uL Normal <0.87 [facility] Comment on above: Order Comment: Speci men Type: BLOOD SPECIMENOrdering Facility: [facility] Address: [address] [place] [address] Performed By: #### 5 7021-8, 4536-7 ####[facility] LABIA [id number] [place] [address] [place] Monocytes/100 WBC (Bld) 9.2 % Normal [facility] Comment on above: Order Comment: Speci men Type: BLOOD SPECIMENOrdering Facility: [facility] Address: [address] [place] [address] Performed By: #### 5 7021-8, 4537-7 ####[facility] LABIA [id number] [place] [address] [place] Neutrophils (Bld) [#/Vol] 5.08 10*3/uL Normal 1.45-7.50 [facility] Comment on above: Order Comment: Speci men Type: BLOOD SPECIMENOrdering Facility: [facility] Address: [address] [place] [address] Performed By: #### 5 7021-8, 4536-7 ####[facility] LABCLIA [id number] [place] [address] [place] Neutrophils/100 WBC (Bld) 68.0 % Normal [facility] Comment on above: Order Comment: Speci men Type: BLOOD SPECIMENOrdering Facility: [facility] Address: [address] [place] [address] Performed By: #### 5 7021-8, 4536-7 ####[facility] LABCLIA [id number] [place] [address] [place] Nucleated RBC (Bld) [#/Vol] 10*3/uL Normal <0.01 [facility] Comment on above: Order Comment: Speci men Type: BLOOD SPECIMENOrdering Facility: [facility] Address: [address] [place] [address] Performed By: #### 5 7021-8, 4536-7 ####[facility] LABCLIA [id number] [place] [address] [place] Nucleated RBC/100 WBC (Bld) [Ratio] 0.0 /100 WBC Normal [facility] Comment on above: Order Comment: Speci men Type: BLOOD SPECIMENOrdering Facility: [facility] Address: [address] [place] [address] Performed By: #### 5 7021-8, 4536-7 ####[facility] LABCLIA [id number] [place] [address] [place] Platelet mean volume (Bld) [Entitic vol] Normal [facility] Comment on above: Order Comment: Speci men Type: BLOOD SPECIMENOrdering Facility: [facility] Address: [address] [place] [address] Result Comment: Unab le to Report. Performed By: #### 5 7021-8, 4537-7 ####[facility] LABCLIA [id number] [place] [address] [place] Platelets (Bld) [#/Vol] 185 10*3/uL Normal 150-400 [facility] Comment on above: Order Comment: Speci men Type: BLOOD SPECIMENOrdering Facility: [facility] Address: [address] [place] [address] Result Comment: Resu lts checked and verified.No clot detected. Performed By: #### 5 7021-8, 4537-7 ####[facility] LABIA [id number] [place] [address] [place] RBC (Bld) [#/Vol] 5.15 10*6/uL Normal 3.90-5.20 [facility] Comment on above: Order Comment: Speci men Type: BLOOD SPECIMENOrdering Facility: [facility] Address: [address] [place] [address] Performed By: #### 5 7021-8, 4537-7 ####[facility] LABIA [id number] [place] [address] [place] WBC (Bld) [#/Vol] 7.47 10*3/uL Normal 3.70-11.00 [facility] Comment on above: Order Comment: Speci men Type: BLOOD SPECIMENOrdering Facility: [facility] Address: [address] [place] [address] Performed By: #### 5 7021-8, 4537-7 ####[facility] LABIA [id number] [place] [address] [place] CNOVon 03-04-2024 CNOV Office Visit ([facility] ) ----- CAROL ANN MARTINEZ ([id number]) 1985 F Date Time Provider Department 03/04/24 1:00 PM JANICE LANESudheer During your visit today, we recorded the following information about you: Temperature Pulse Blood pressure Weight 98.1 degrees 95/minute 101/66 55.7 kg Height 1.689 m Cintia Cadena MA 03/04/2024 1:00 PM S[address] [facility] Please visit our lab at least 3-5 days before your scheduled appointment to have your lab work drawn, if lab work is ordered. This will allow us the ability to review your lab work results with you during your scheduled visit. [facility]: Lab is open Friday - Friday from 6:30am to 5pm and open 8am -12pm on Saturdays. [place] [facility]: Friday- 7:30am to 5:30pm. Fridays [...] medicine, or pediatrics at any of our [facility] locations and main campus. [address] [...] for next physical. Patient Instructions [facility] Please visit our lab at least 3-5 days before your scheduled appointment to have your lab work drawn, if lab work is ordered. This will allow us the ability to review your lab work results with you during your scheduled visit. [facility] MCGRATH (more content not included)... Normal [facility] CRP SerPl-mCncon 03-04-2024 CRP [Mass/Vol] mg/L Normal <0.9 [facility] Comment on above: Order Comment: Speci men Type: BLOOD SPECIMENOrdering Facility: [facility] Address: [address] [place] [address] Performed By: #### 1 988-5, 82039-8, 00170-6, 2276-4 ####[facility] LABCLIA [id number] [place] [address] [place] ESR Westergren method (Bld) [Velocity]on 03-04-2024 ESR (Bld) [Velocity] 5 mm/h Normal 0-20 [facility] Comment on above: Order Comment: Specjoshua chauhan Type: BLOOD SPECIMENOrdering Facility: [facility] Address: [address] [place] [address] Performed By: #### 5 7021-8, 4537-7 ####[facility] LABCLIA [id number] [place] [address] [place] Ferritin SerPl-mCncon 2023 Ferritin [Mass/Vol] 14.2 ng/mL Low 14.7-205.1 [facility] Comment on above: Order Comment: Speci men Type: BLOOD SPECIMENOrdering Facility: [facility] Address: [address] [place] [address] Performed By: #### 1 988-5, 49717-2, 92410-8, 2276-4 ####[facility] LABCLIA [id number] [place] [address] [place] Iron and Iron binding capaci ty panelon 03-04-2024 Iron [Mass/Vol] 90 ug/dL Normal 41-186 [facility] Comment on above: Order Comment: Speci men Type: BLOOD SPECIMENOrdering Facility: [facility] Address: [address] [place] [address] Performed By: #### 1 988-5, 33726-2, 31863-0, 6-4 ####[facility] LABCLIA [id number] [address] [place] Iron binding capacity [Mass/Vol] 351 ug/dL Normal 232-386 [facility] Comment on above: Order Comment: Speci men Type: BLOOD SPECIMENOrdering Facility: [facility] Address: [address] [place] [address] Performed By: #### 1 988-5, 61705-1, 54748-1, 2276-4 ####[facility] LABCLIA [id number] [place] [address] [place] Iron/TIBC [Molar ratio] 25.6 % Normal 15.0-57.0 [facility] Comment on above: Order Comment: Speci men Type: BLOOD SPECIMENOrdering Facility: [facility] Address: [address] [place] [address] Performed By: #### 1 988-5, 00253-2, 75757-3, 2276-4 ####[facility] LABCLIA [id number] [place] [address] [place] No Panel Informationon 03-04 Radiology Study observation (narrative) [facility] Rheumatoid fact SerPl-aCncon 03-04-2024 Rheumatoid factor Qn [IU]/mL Normal <16 [facility] Comment on above: Order Comment: Speci men Type: BLOOD SPECIMENOrdering Facility: [facility] Address: [address] [place] [address] Performed By: #### 1 988-5, 18063-0, 26920-3, 2276-4 ####[facility] LABCLIA [id number] [address] [place] Urate SerPl-mCncon Urate [Mass/Vol] 3.1 mg/dL Normal 2.5-6.6 [facility] Comment on above: Order Comment: Speci men Type: BLOOD SPECIMENOrdering Facility: [facility] Address: [address] [place] [address] Performed By: #### 3 084-1 ####[facility] LABIA [id number] [address] [place] XR CERVICAL 4V [...] Preserved cervical disc spaces and neural foramina. Lens Assistant: [facility] Transcribe Date/Time: Mar 08 2024 4:48P Dictated by : VIKTORIYA WALTER MD This examination was interpreted and the report reviewed and electronically signed by: VIKTORIYA WALTER MD on Mar 08 2024 4:50PM EST [id number] Normal [facility] XR LUMBAR 3V AP/LAT/L5-S1on 03-04-2024 XR [...] Unremarkable radiographic appearance of the lumbar spine. Lens Assistant: [facility] Transcribe Date/Time: Mar 08 2024 4:47P Dictated by : VIKTORIYA WALTER MD This examination was interpreted and the report reviewed and electronically signed by: VIKTORIYA WALTER MD on Mar 08 2024 4:48PM EST [id number] Normal [facility] A1C with Estimated Average G adolfon 02-24-2024 Glucose [Mass/Vol] 100 mg/dL Normal [facility] Comment on above: Result Comment: PERF ORMED BY: [facility] [address] [place] [address] PATHOLOGIST [employer]ITATION LEAD ALEN PRICE M.D. Performed By: #### P TT, HCGQNT, CBC, PT, T4F, A1C WTH eA, TSH3 #### [facility] [address] HbA1c (Bld) [Mass fraction] 5.1 % Normal 4.3-5.6 [facility] Comment on above: Result Comment: Incr eased risk for diabetes: 5.7 - 6.4 diabetes: >6.4 glycemic control for adults with diabetes: <7.0 Performed By: #### P TT, HCGQNT, CBC, PT, T4F, A1C WT eA, TSH3 #### [facility] [address] [place] [id number] [facility] Activated partial thrombopla stin time (aPTT) in platelet poor plasma by coagulation aOrdered By: Clarke Hu on 02-24-2024 aPTT Coag (PPP) [Time] 33.7 s 25.1-36.5 [facility] Comment on above: A hematocrit value g reater than 55% may lead to inaccurate results in coagulation testing. Patients having hematocrit values >55% require a special collection tube for coagulation studies. Please contact the laboratory at [phone] for redraw instructions. Basophils Auto (Bld) [#/Vol] Ordered By: Clarke Hu on 02-24-2024 Basophils (Bld) [#/Vol] 0.0 10*3/uL 0.0-0.2 [facility] Basophils/100 WBC Auto (Bld) Ordered By: Clarke Hu on 02-24-2024 Basophils/100 WBC (Bld) 0.5 % . [facility] Christiano 02-24-2024 TREEN Telephone (SAMEER) ----- CAROL ANN MARTINEZ ([id number]) 1985 F Date Time Provider Department 02/24/24 TOR HERNANDEZ During your visit today, we recorded the following information about you: Shereen Scott 02/24/2024 2:33 PM Signed Chris Call Name of caller : Milady Relationship to patient: Barney Osorio Return call phone number : [phone] Reason for call : Other : Brief description of concern : The patient is not considered homebound and they are unable to admit the patient. Champ Baxter LSW 02/26/2024 10:08 AM Signed Spoke with [facility] CM, Iris Edge regarding this message. Iris stated she encouraged pt to reach out to her insurance company and request an insurance CM to help her find an outside provider to provide services. Request sent to Tor Hernandez APRN.CNP for orders: non-[facility] outpatient PT, OT and SPT? Once she finds an outside provider, then CF can send the orders. DEZ Archer, [facility] Social Work Tor Hernandez APRN.CNP 02/26/2024 10:23 AM Signed Non-[facility] PT, OT, and CASH CONTROLLER orders placed Tor Hernandez APRN.CNP February 26, [...] Date Reviewed: 01/19/2024 Reviewed by: Kaitlyn Forbes, cms expert - Fully Assessed Primary Visit Diagnosis:Multiple sclerosis (HCC) [G35] Order(s):CONSULT TO PHYSICAL THERAPY [9032] Order #: [id number]: 1 FUTURE CONSULT TO CUSTOMER ENGINEER [336114] Order #: [id number]: 1 FUTURE CONSULT TO SPEECH THERAPY [0227214] Order #: [id number]: 1 FUTURE Prescriptions as of 02/26/2024 - [...] (FLONASE) 50 mcg/actuation nasal spray Use 1 [place] in each nostril once daily. Problem List [...] extremity [R6 (more content not included)... Normal [facility] Choriogonadotropin.beta subu nit [Units/volume] in Serum or PlasmaOrdered By: Clarke Hu on 02-24-2024 HCG.beta subunit Qn 791.11 m[IU]/mL [facility] Comment on above: Approximate Approxim ate hCG Gestational Age Range (mIU/ml) (weeks)0.2-1 5-50 1-2 50-500 2-3 100-5,000 3-4 500-10,000 4-5 1,000-50,000 5-6 10,000-100,000 6-8 15,000-200,000 8-12 10,000-100,000 Complete Blood Count Auto Di ffon 02-24-2024 Basophils (Bld) [#/Vol] 0.0 10*3/uL Normal 0.0-0.2 [facility] Comment on above: Result Comment: PERF ORMED BY: [place] [address] PATHOLOGIST [employer]ITATION LEAD ALEN PRICE M.D. Performed By: #### P TT, HCGQNT, CBC, PT, T4F, A1C WTH eA, TSH3 #### [address] Basophils/100 WBC (Bld) 0.5 % Normal . [facility] Comment on above: Performed By: #### P TT, HCGQNT, CBC, PT, T4F, A1C WTH eA, TSH3 #### [address] Eosinophils (Bld) [#/Vol] 0.0 10*3/uL Normal 0.0-0.45 [facility] Comment on above: Performed By: #### P TT, HCGQNT, CBC, PT, T4F, A1C WTH eA, TSH3 #### [address] Eosinophils/100 WBC (Bld) 0.2 % Normal . [facility] Comment on above: Performed By: #### P TT, HCGQNT, CBC, PT, T4F, A1C WTH eA, TSH3 #### [address] Erythrocyte distribution width (RBC) [Ratio] 15.2 % Normal 11.9-15.3 [facility] Comment on above: Performed By: #### P TT, HCGQNT, CBC, PT, T4F, A1C WTH eA, TSH3 #### [address] Hematocrit (Bld) [Volume fraction] 36.9 % Normal 34.0-46.4 [facility] Comment on above: Performed By: #### P TT, HCGQNT, CBC, PT, T4F, A1C WTH eA, TSH3 #### [address] Hemoglobin (Bld) [Mass/Vol] 11.7 g/dL Low 11.8-15.4 [facility] Comment on above: Performed By: #### P TT, HCGQNT, CBC, PT, T4F, A1C WTH eA, TSH3 #### [address] Lymphocytes (Bld) [#/Vol] 2.1 10*3/uL Normal 1.00-4.8 [facility] Comment on above: Performed By: #### P TT, HCGQNT, CBC, PT, T4F, A1C WTH eA, TSH3 #### [address] Lymphocytes/100 WBC (Bld) 26.9 % Normal . [facility] Comment on above: Performed By: #### P TT, HCGQNT, CBC, PT, T4F, A1C WTH eA, TSH3 #### [address] MCH (RBC) [Entitic mass] 24.4 pg Low 24.7-34.3 [facility] Comment on above: Performed By: #### P TT, HCGQNT, CBC, PT, T4F, A1C WTH eA, TSH3 #### [address] MCV (RBC) [Entitic vol] 76.5 fL Low 80-100 [facility] Comment on above: Performed By: #### P TT, HCGQNT, CBC, PT, T4F, A1C WTH eA, TSH3 #### [address] Mean Corpuscular HGB Conc 31.8 g/dL Low 32.0-35.0 [facility] Comment on above: Performed By: #### P TT, HCGQNT, CBC, PT, T4F, A1C WTH eA, TSH3 #### [address] Monocytes (Bld) [#/Vol] 0.7 10*3/uL Normal 0.0-0.8 [facility] Comment on above: Performed By: #### P TT, HCGQNT, CBC, PT, T4F, A1C WTH eA, TSH3 #### [address] Monocytes/100 WBC (Bld) 9.3 % Normal . [facility] Comment on above: Performed By: #### P TT, HCGQNT, CBC, PT, T4F, A1C WTH eA, TSH3 #### [address] Neutrophils (Bld) [#/Vol] 5.0 10*3/uL Normal 1.8-7.7 [facility] Comment on above: Performed By: #### P TT, HCGQNT, CBC, PT, T4F, A1C WTH eA, TSH3 #### [address] Neutrophils/100 WBC (Bld) 63.1 % Normal . [facility] Comment on above: Performed By: #### P TT, HCGQNT, CBC, PT, T4F, A1C WTH eA, TSH3 #### [address] NRBC% 0.0 /100{WBC} Normal 0-0.5 [facility] Comment on above: Performed By: #### P TT, HCGQNT, CBC, PT, T4F, A1C WTH eA, TSH3 #### [address] Platelet mean volume (Bld) [Entitic vol] 11.1 fL High 6.3-10.7 [facility] Comment on above: Performed By: #### P TT, HCGQNT, CBC, PT, T4F, A1C WTH eA, TSH3 #### [address] Platelets (Bld) [#/Vol] 187 10*3/uL Normal 150-450 [facility] Comment on above: Performed By: #### P TT, HCGQNT, CBC, PT, T4F, A1C WTH eA, TSH3 #### [facility] [address] RBC (Bld) [#/Vol] 4.82 10*6/uL Normal 3.60-5.00 [facility] Comment on above: Performed By: #### P TT, HCGQNT, CBC, PT, T4F, A1C WT eA, TSH3 #### [facility] [address] WBC (Bld) [#/Vol] 7.9 10*3/uL Normal 3.8-11.6 [facility] Comment on above: Performed By: #### P TT, HCGQNT, CBC, PT, T4F, A1C WT eA, TSH3 #### [address] Eosinophils Auto (Bld) [#/Vo l]Ordered By: Clarke Hu on 02-24-2024 Eosinophils (Bld) [#/Vol] 0.0 10*3/uL 0.0-0.45 [facility] Eosinophils/100 WBC Auto (Bl d)Ordered By: Clarke Hu on 02-24-2024 Eosinophils/100 WBC (Bld) 0.2 % . [facility] Erythrocyte distribution wid th Auto (RBC) [Ratio]Ordered By: Clarke Hu on 02-24-2024 Erythrocyte distribution width (RBC) [Ratio] 15.2 % 11.9-15.3 [facility] Free T4 (Free Thyroxine)on 0 02-24-2024 Free T4 [Mass/Vol] 0.82 ng/dL Normal 0.61-1.12 [facility] Comment on above: Performed By: #### P TT, HCGQNT, CBC, PT, T4F, A1C WT eA, TSH3 #### [address] Glucose mean value [Mass/vol ume] in Blood Estimated from glycated hemoglobinOrdered By: Clarke Hu on 02-24-2024 Average glucose Estimated from glycated hemoglobin (Bld) [Mass/Vol] 100 mg/dL [facility] HCG,Quantitativeon 4 HCG,Quantitative 791.11 m[iU]/mL Normal [facility] Comment on above: Result Comment: Appr oximate Approximate hCG Gestational Age Range (mIU/ml) (weeks) 0.2-1 5-50 1-2 50-500 2-3 100-5,000 3-4 500-10,000 4-5 1,000-50,000 5-6 10,000-100,000 6-8 15,000-200,000 8-12 10,000-100,000 PERFORMED BY: [place] [address] PATHOLOGIST [employer]ITATION LEAD ALEN PRICE M.D. Performed By: #### P TT, HCGQNT, CBC, PT, T4F, A1C WTH eA, TSH3 #### [facility] [address] [place] [address] Hematocrit Auto (Bld) [Volum e fraction]Ordered By: Clarke Hu on 02-24-2024 Hematocrit (Bld) [Volume fraction] 36.9 % 34.0-46.4 [facility] Hemoglobin A1c percentageOrd ered By: Clarke Hu on 02-24-2024 HbA1c (Bld) [Mass fraction] 5.1 % 4.3-5.6 [facility] Comment on above: Increased risk for d iabetes: 5.7 - 6.4diabetes: >6.4glycemic control for adults with diabetes: <7.0 Hemoglobin [Mass/volume] in BloodOrdered By: Clarke Hu on 02-24-2024 Hemoglobin (Bld) [Mass/Vol] 11.7 g/dL 11.8-15.4 [facility] INR in Platelet poor plasma by Coagulation assayOrdered By: Clarke Hu on 02-24-2024 INR Coag (PPP) [Relative time] 1.1 {INR} [facility] Comment on above: INR Therapeutic Rang e [...] RBC Auto (Bld) [#/Vol] 7.9 10*3/uL 3.8-11.6 [facility] Lymphocytes Auto (Bld) [#/Vo l]Ordered By: Clarke Hu on 02-24-2024 Lymphocytes (Bld) [#/Vol] 2.1 10*3/uL 1.00-4.8 [facility] Lymphocytes/100 WBC Auto (Bl d)Ordered By: Clarke Hu on 02-24-2024 Lymphocytes/100 WBC (Bld) 26.9 % . [facility] MCH Auto (RBC) [Entitic mass ]Ordered By: Clarke Hu on 02-24-2024 MCH (RBC) [Entitic mass] 24.4 pg 24.7-34.3 [facility] MCHC Auto (RBC) [Mass/Vol]Or dered By: Clarke Hu on 02-24-2024 MCHC (RBC) [Mass/Vol] 31.8 g/dL 32.0-35.0 [facility] MCV Auto (RBC) [Entitic vol] Ordered By: Clarke Hu on 02-24-2024 MCV (RBC) [Entitic vol] 76.5 fL 80-100 [facility] Monocytes Auto (Bld) [#/Vol] Ordered By: Clarke Hu on 02-24-2024 Monocytes (Bld) [#/Vol] 0.7 10*3/uL 0.0-0.8 [facility] Monocytes/100 WBC Auto (Bld) Ordered By: Clarke Hu on 02-24-2024 Monocytes/100 WBC (Bld) 9.3 % . [facility] Neutrophils Auto (Bld) [#/Vo l]Ordered By: Clarke Hu on 02-24-2024 Neutrophils (Bld) [#/Vol] 5.0 10*3/uL 1.8-7.7 [facility] Neutrophils/100 WBC Auto (Bl d)Ordered By: Clarke Hu on 02-24-2024 Neutrophils/100 WBC (Bld) 63.1 % . [facility] Nucleated erythrocytes [Pres ence] in Blood by Automated countOrdered By: Clarke Hu on 02-24-2024 Nucleated RBC Auto Ql (Bld) 0.0 /100{WBC} 0-0.5 [facility] Partial Thromboplastin Timeo n 02-24-2024 aPTT Coag (Bld) [Time] 33.7 s Normal 25.1-36.5 [facility] Comment on above: Result Comment: A he matocrit value greater than 55% may lead to inaccurate results in coagulation testing. Patients having hematocrit values >55% require a special collection tube for coagulation studies. Please contact the laboratory at [phone] for redraw instructions. PERFORMED BY: [place] [address] PATHOLOGIST [employer]ITATION LEAD ALEN PRICE M.D. Performed By: #### P TT, HCGQNT, CBC, PT, T4F, A1C WTH eA, TSH3 #### [facility] [address] [place] [address] Platelet mean volume Auto (B ld) [Entitic vol]Ordered By: Clarke Hu on 02-24-2024 Platelet mean volume (Bld) [Entitic vol] 11.1 fL 6.3-10.7 [facility] Platelets Auto (Bld) [#/Vol] Ordered By: Clarke Hu on 02-24-2024 Platelets (Bld) [#/Vol] 187 10*3/uL 150-450 [facility] Prothrombin Time INRon 02-23 INR Coag (PPP) [Relative time] 1.1 {INR} Normal [facility] Comment on above: Result [...] PT, T4F, A1C WTH eA, TSH3 #### [facility] [address] PT Coag (PPP) [Time] 12.2 s Normal 9.0-12.9 [facility] Comment on above: Result Comment: A he matocrit value greater than 55% may lead to inaccurate results in coagulation testing. Patients having hematocrit values >55% require a special collection tube for coagulation studies. Please contact the laboratory at [phone] for redraw instructions. Performed By: #### P TT, HCGQNT, CBC, PT, T4F, A1C [facility] eA, TSH3 #### [facility] [address] Prothrombin time (PT)Ordered By: Clarke Hu on 02-24-2024 PT Coag (PPP) [Time] 12.2 s 9.0-12.9 [facility] Comment on above: A hematocrit value g reater than 55% may lead to inaccurate results in coagulation testing. Patients having hematocrit values >55% require a special collection tube for coagulation studies. Please contact the laboratory at [phone] for redraw instructions. RBC Auto (Bld) [#/Vol]Ordere d By: Clarke Hu on 02-24-2024 RBC (Bld) [#/Vol] 4.82 10*6/uL 3.60-5.00 [facility] Thyroid Stimulating Hormoneo n 02-24-2024 TSH Qn 0.96 m[IU]/L Normal 0.45-5.33 [facility] Comment on above: Performed By: #### P TT, HCGQNT, CBC, PT, T4F, A1C WT eA, TSH3 #### [address] Thyrotropin [Units/volume] i n Serum or PlasmaOrdered By: Clarke Hu on 02-24-2024 TSH Qn 0.96 m[IU]/L 0.45-5.33 [facility] Thyroxine (T4) free [Mass/vo lume] in Serum or PlasmaOrdered By: Clarke Hu on 02-24-2024 Free T4 [Mass/Vol] 0.82 ng/dL 0.61-1.12 [facility] WBC Auto (Bld) [#/Vol]Ordere d By: Clarke Hu on 02-24-2024 WBC (Bld) [#/Vol] 7.9 10*3/uL 3.8-11.6 [facility] CNPNon 02-18-2024 CNPN Telephone (NEMSMN) ----- CAROL ANN MARTINEZ ([id number]) 1985 F Date Time Provider Department 02/18/24 CHAMP BAXTER During your visit today, we recorded the following information about you: Diana Garcia 02/18/2024 8:55 AM Signed Chris Call Name of caller [facility] Relationship to patient: Self Return call phone number : [phone] Reason for call : Would like a [...] Date Reviewed: 01/19/2024 Reviewed by: Kaitlyn Forbes, cms expert - Fully Assessed Reason for Visit: Patient [...] (FLONASE) 50 mcg/actuation nasal spray Use 1 Charlemont in each nostril once daily. Problem List [...] Encounter Status:Closed by CHAMP BAXTER on 02/18/24 [facility] 02-03-2024 CNPN Telephone (NEMSMN) ----- CAROL ANN MARTINEZ ([id number]) 1985 F Date Time Provider Department 02/03/24 CHAMP BAXTER During your visit today, we recorded the following information about you: Clarice Zepeda HUC 02/03/2024 1:33 PM Signed Chris Call Name of caller : Iris Edge Relationship to patient: [facility] Return call phone number : [phone] Reason for call : Other : Brief description of concern : Has follow up questions Champ Baxter LSW 02/04/2024 9:37 AM Signed Returned Iris's call. Iris stated pt was approved for a [facility] aide one day a week for 45 min to assist with additonal care needs. Iris is requesting an order from the doctor to start care. I will e-mail Iris the order when completed. DEZ Archer, [facility] Social Work Allergies As of Date: [...] Date Reviewed: 01/19/2024 Reviewed by: Kaitlyn Forbes, cms expert - Fully Assessed Reason for Visit: Patient [...] (FLONASE) 50 mcg/actuation nasal spray Use 1 Charlemont in each nostril once daily. Problem List [...] Status:Closed by CHAMP BAXTER on 02/04/24 Normal [facility] MR Thoracic spine WO and W c ontrast Joe 01-19-2024 [facility] MRI THORACIC SPINE WO/W IVCO Non 01-19-2024 [...] identified to suggest active or progressive disease. Lens Assistant: PSCB Transcribe Date/Time: Jan 19 2024 3:31P Dictated by : LOVE WHARTON MD This examination was interpreted and the report reviewed and electronically signed by: LOVE WHARTON MD on Jan 19 2024 3:43PM EST [id number] Normal [facility] CNPNon 01-05-2024 [facility] ----- MARTINEZCAROL ANN ([id number]) 1985 F Date Time Provider Department 01/05/24 BAXTERCHAMP During your visit today, we recorded the [...] Date Reviewed: 12/25/2023 Reviewed by: Tor Hernandez APRN.ENVIRONMENTAL PROJECTS ADVISOR - Fully Assessed Reason for Visit: Appointment [...] (FLONASE) 50 mcg/actuation nasal spray Use 1 Charlemont in each nostril once daily. Problem List [...] Status:Closed by NADINE JAMES on 01/05/24 Normal [facility] CNOVon 12-25-2023 CNOV Office Visit (NEMSLR ) ----- CAROL ANN MARTINEZ ([id number]) 1985 F Date Time Provider Department 12/25/23 11:00 AM TOR HERNANDEZ NEMSLR During your visit today, we recorded the following information about you: Pulse Blood pressure Weight Last Period 87/minute 95/67 56.8 kg 12/21/23 Tor Hernandez APRN.ENVIRONMENTAL PROJECTS ADVISOR 12/25/2023 12:09 PM [facility] FOLLOWUP/ESTABLISHED PATIENT VISIT PRINCIPAL NEUROLOGIC DIAGNOSIS: Multiple Sclerosis DISEASE SUMMARY Date of onset: 03/2007 Date of diagnosis of MS: 03/2007 Disease course at onset: Relapsing-Remitting Current disease course: Progressive without relapses Previous disease therapies: - Betaseron [phone] - Copaxone [phone] - Tysabri 2009-Summer 2019 (stopped due to planned ) - Copaxone [phone] (during ) Current disease therapy: Ocrevus (since 02/28/21, most recent 09/25/23) Most recent MRI brain: 01/02/23 (stable) Most recent MRI cervical spine: 01/02/23 (stable) Most recent MRI thoracic spine: 07/23/2022 CSF: NA JCV: 02/14/2021 0.28, stratify negative Brief Disease History: - 2006 lower extremity numbness evolving over 3 weeks following occipital relase - [phone] recurrent OS ON - 1379-8775 several relapses including L numbness, weakness, constipation, urinary urgency - 2019 R weakness and numbness needing a wheelchair, hospitalized at [facility] (off Tysabri x3 months due [...] 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, ot, 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, sw, 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, is unable [...] easily fatigued Neuro-QoL Functions (higher=better functioning) Flowsheet [facility] Office Visit from 07/23/2023 in [facility] Office Visit from 01/17/2023 in [facility] Appointment from 01/15/2023 in [facility] Upper Extremity Domain T Score 28.29 31.35 30 Lower Extremity Domain T Score 36.94 36.94 39 Cognitive Function Domain T Score 30.7 28.53 38 Positive Affect Well Being T Score -- -- -- Ability To Participate In Social Roles T Score 39.9 39.9 43 Satisfaction With Social Roles T Score 39.66 39.66 45 Neuro-QoL Symptoms (higher=worse symptoms) Flowsheet [facility] Office Visit from 07/23/2023 in [facility] Office Visit from 01/17/2023 in [facility] Appointment from 01/15/2023 in [facility] Sleep Domain T Score 69.2 68.89 [...] female, L (more content not included)... Normal [facility] CNPNon 12-25-2023 CNPN Telephone (HCSIND) ----- CAROL ANN MARTINEZ ([id number]) 1985 F Date Time Provider Department 12/25/23 LISA ELLIOTT HCSIND During your visit today, we recorded the following information about you: Lisa Elliott 12/25/2023 2:08 PM Addendum Spoke with Roxy from [facility] and accepted the patient for Home Care. Thank you for the referral of your patient to [facility]. At this time, we are unable to accommodate your patient's needs in a safe and timely fashion. In order to help your patient receive quality home care, we will assist in finding alternate staffing. I have forwarded the referral to [facility], and it is pending. I will notify you when we have an accepting agency. Thank you. Thank you for the referral of your patient to [facility] Home [facility]. At this time, we are [...] for the referral of your patient to [facility] Home [facility]. At this time, we are unable to accommodate your patient's needs in a safe and timely fashion. In order to help your patient receive quality home care, we will assist in finding alternate staffing. I have forwarded the referral to [facility], and it is declined. I will [...] Date Reviewed: 12/25/2023 Reviewed by: Tor Hernandez APRN.ENVIRONMENTAL PROJECTS ADVISOR - Fully Assessed Reason for Visit: Home [...] (FLONASE) 50 mcg/actuation nasal spray Use 1 Charlemont in each nostril once daily. Problem List As Of Date 12/25/2023 Noted Resolved Multiple sclerosis (HCC) [G35] 11/15/2019 Chronic insomnia [F51.04] 01/04/2020 AMA (advanced maternal age) primigravida 35+, s*2020 01/11/2021 History of loop electrosurgical excision proced*2020 01/11/2021 Poor growth affecting (more content not included)... Normal [facility] HCG ( test) Ql (U)o n 12-23-2023 Interpretation and review of laboratory results Normal [facility] Preg Test, Ur Negative [facility] - Microbiology an d Antimicrobial susceptibilityon 12-23-2023 SARS-CoV-2 (COVID-19) RNA DEIRDRE+probe Ql (Unsp spec) Negative [facility] No Panel Informationon 12-23 FLU A Negative [facility] FLU B Negative [facility] Interpretation and review of laboratory results Normal [facility] 11-28-2023 L Specimen: BS Received: 11/28/23 Status: ALLISON See Num: [id number] Spec Type: Surgical Subm Dr: Clarke Hu Tissues: A Endometrium - Curettings (EMC) Procedures: HE/2, Gross/Micro L4 Age/ Patient Sex Location Account Attending Physician Carol Ann Martinez 38/F LABELL [id number] Clarke Hu SPEC NUM: [id number] RECD: 11/28/23 STATUS: ALLISON SEE NUM: [id number] ALLAN: 11/28/[address]: Clarke Hu ENTERED: 11/28/[address] [facility] [address]: Sherry,Lab SPEC TYPE: Surgical DEPT: IDRIS [...] in one cassette labeled A1. CPT Codes 73665 Specimen: [id number] Received: 11/28/23 Status: ALLISON See Num: [id number] Spec Type: Surgical Subm Dr: Clarke Hu Tissues: A Endometrium - Curettings ([facility]C) Procedures: HE/2, Gross/Micro L4 Patient: Carol Ann Martinez [id number] (Continued) Signed (signature on file) Edu Watkins MD 12/01/232158 [facility] 10-13-2023 [facility] Social Work (HEMASA) ----- CAROL ANN MARTINEZ ([id number]) 1985 F Date Time Provider Department 10/13/23 [...] (FLONASE) 50 mcg/actuation nasal spray Use 1 Charlemont in each nostril once daily. Problem List [...] Status:Closed by ALEXANDRA HOGAN on 10/13/23 Normal [facility] CBC W Auto Differential pane l (Bld)on 09-25-2023 Basophils (Bld) [#/Vol] 0.03 10*3/uL <0.11 k/uL [facility] Basophils/100 WBC (Bld) 0.8 % [facility] Differential cell count method Nom (Bld) Auto [facility] Eosinophils (Bld) [#/Vol] 0.07 10*3/uL <0.46 k/uL [facility] Eosinophils/100 WBC (Bld) 1.8 % [facility] Erythrocyte distribution width (RBC) [Ratio] 17.1 % High 11.5 - 15.0 % [facility] Hematocrit (Bld) [Volume fraction] 41.0 % 36.0 - 46.0 % [facility] Hemoglobin (Bld) [Mass/Vol] 12.5 g/dL 11.5 - 15.5 g/dL [facility] Immature granulocytes (Bld) [#/Vol] <0.10 k/uL [facility] Immature granulocytes/100 WBC (Bld) 0.0 % [facility] Lymphocytes (Bld) [#/Vol] 2.63 10*3/uL 1.00 - 4.00 k/uL [facility] Lymphocytes/100 WBC (Bld) 66.4 % [facility] MCH (RBC) [Entitic mass] 23.7 pg Low 26.0 - 34.0 pg [facility] MCHC (RBC) [Mass/Vol] 30.5 g/dL 30.5 - 36.0 g/dL [facility] MCV (RBC) [Entitic vol] 77.7 fL Low 80.0 - 100.0 fL [facility] Monocytes (Bld) [#/Vol] 0.51 10*3/uL <0.87 k/uL [facility] Monocytes/100 WBC (Bld) 12.9 % [facility] Neutrophils (Bld) [#/Vol] 0.72 10*3/uL Low 1.45 - 7.50 k/uL [facility] Neutrophils/100 WBC (Bld) 18.1 % [facility] Nucleated RBC (Bld) [#/Vol] <0.01 k/uL [facility] Nucleated RBC/100 WBC (Bld) [Ratio] 0.0 /100 WBC [facility] Platelet mean volume (Bld) [Entitic vol] [facility] Platelets (Bld) [#/Vol] 179 10*3/uL 150 - 400 k/uL [facility] RBC (Bld) [#/Vol] 5.28 10*6/uL High 3.90 - 5.2 0 m/uL [facility] WBC (Bld) [#/Vol] 3.96 10*3/uL 3.70 - 11. 00 k/uL [facility] Basophils (Bld) [#/Vol] 0.03 10*3/uL Normal <0.11 [facility] Comment on above: Order Comment: Speci men Type: BLOOD SPECIMENOrdering Facility: [facility] Address: [address] [place] [address] Performed By: #### 5 7021-8 ####[facility] LABCLIA [id number] [place] [address] Basophils/100 WBC (Bld) 0.8 % Normal [facility] Comment on above: Order Comment: Speci men Type: BLOOD SPECIMENOrdering Facility: [facility] Address: [address] [place] [address] Performed By: #### 5 7021-8 ####[facility] LABCLIA [id number] [place] [address] Differential cell count method Nom (Bld) Auto Normal [facility] Comment on above: Order Comment: Speci men Type: BLOOD SPECIMENOrdering Facility: [facility] Address: [address] [place] [address] Performed By: #### 5 7021-8 ####[facility] LABCLIA [id number] [place] [address] Eosinophils (Bld) [#/Vol] 0.07 10*3/uL Normal <0.46 [facility] Comment on above: Order Comment: Speci men Type: BLOOD SPECIMENOrdering Facility: [facility] Address: [address] [place] [address] Performed By: #### 5 7021-8 ####[facility] LABCLIA [id number] [place] [address] Eosinophils/100 WBC (Bld) 1.8 % Normal [facility] Comment on above: Order Comment: Speci men Type: BLOOD SPECIMENOrdering Facility: [facility] Address: [address] [place] [address] Performed By: #### 5 7021-8 ####[facility] LABCLIA [id number] [place] [address] Erythrocyte distribution width (RBC) [Ratio] 17.1 % High 11.5-15.0 [facility] Comment on above: Order Comment: Speci men Type: BLOOD SPECIMENOrdering Facility: [facility] Address: [address] [place] [address] Performed By: #### 5 7021-8 ####[facility] LABCLIA [id number] [place] [address] Hematocrit (Bld) [Volume fraction] 41.0 % Normal 36.0-46.0 [facility] Comment on above: Order Comment: Speci men Type: BLOOD SPECIMENOrdering Facility: [facility] Address: [address] [place] [address] Performed By: #### 5 7021-8 ####[facility] LABCLIA [id number] [place] [address] Hemoglobin (Bld) [Mass/Vol] 12.5 g/dL Normal 11.5-15.5 [facility] Comment on above: Order Comment: Speci men Type: BLOOD SPECIMENOrdering Facility: [facility] Address: [address] [place] [address] Performed By: #### 5 7021-8 ####[facility] LABCLIA [id number] [place] [address] Immature granulocytes (Bld) [#/Vol] 10*3/uL Normal <0.10 [facility] Comment on above: Order Comment: Speci men Type: BLOOD SPECIMENOrdering Facility: [facility] Address: [address] [place] [address] Performed By: #### 5 7021-8 ####[facility] LABCLIA [id number] [place] [address] Immature granulocytes/100 WBC (Bld) 0.0 % Normal [facility] Comment on above: Order Comment: Speci men Type: BLOOD SPECIMENOrdering Facility: [facility] Address: [address] [place] [address] Performed By: #### 5 7021-8 ####[facility] LABCLIA [id number] [place] [address] Lymphocytes (Bld) [#/Vol] 2.63 10*3/uL Normal 1.00-4.00 [facility] Comment on above: Order Comment: Speci men Type: BLOOD SPECIMENOrdering Facility: [facility] Address: [address] [place] [address] Performed By: #### 5 7021-8 ####[facility] LABIA [id number] [place] [address] Lymphocytes/100 WBC (Bld) 66.4 % Normal [facility] Comment on above: Order Comment: Speci men Type: BLOOD SPECIMENOrdering Facility: [facility] Address: [address] [place] [address] Performed By: #### 5 7021-8 ####[facility] LABCLIA [id number] [place] [address] MCH (RBC) [Entitic mass] 23.7 pg Low 26.0-34.0 [facility] Comment on above: Order Comment: Speci men Type: BLOOD SPECIMENOrdering Facility: [facility] Address: [address] [place] [address] Performed By: #### 5 7021-8 ####[facility] LABCLIA [id number] [place] [address] MCHC (RBC) [Mass/Vol] 30.5 g/dL Normal 30.5-36.0 [facility] Comment on above: Order Comment: Speci men Type: BLOOD SPECIMENOrdering Facility: [facility] Address: [address] [place] [address] Performed By: #### 5 7021-8 ####[facility] LABCLIA [id number] [place] [address] MCV (RBC) [Entitic vol] 77.7 fL Low 80.0-100.0 [facility] Comment on above: Order Comment: Speci men Type: BLOOD SPECIMENOrdering Facility: [facility] Address: [address] [place] [address] Performed By: #### 5 7021-8 ####[facility] LABIA [id number] [place] [address] Monocytes (Bld) [#/Vol] 0.51 10*3/uL Normal <0.87 [facility] Comment on above: Order Comment: Speci men Type: BLOOD SPECIMENOrdering Facility: [facility] Address: [address] [place] [address] Performed By: #### 5 7021-8 ####[facility] LABCLIA [id number] [place] [address] Monocytes/100 WBC (Bld) 12.9 % Normal [facility] Comment on above: Order Comment: Speci men Type: BLOOD SPECIMENOrdering Facility: [facility] Address: [address] [place] [address] Performed By: #### 5 7021-8 ####[facility] LABIA [id number] [place] [address] Neutrophils (Bld) [#/Vol] 0.72 10*3/uL Low 1.45-7.50 [facility] Comment on above: Order Comment: Speci men Type: BLOOD SPECIMENOrdering Facility: [facility] Address: [address] [place] [address] Performed By: #### 5 7021-8 ####[facility] LABCLIA [id number] [place] [address] Neutrophils/100 WBC (Bld) 18.1 % Normal [facility] Comment on above: Order Comment: Speci men Type: BLOOD SPECIMENOrdering Facility: [facility] Address: [address] [place] [address] Performed By: #### 5 7021-8 ####[facility] LABCLIA [id number] [place] [address] Nucleated RBC (Bld) [#/Vol] 10*3/uL Normal <0.01 [facility] Comment on above: Order Comment: Speci men Type: BLOOD SPECIMENOrdering Facility: [facility] Address: [address] [place] [address] Performed By: #### 5 7021-8 ####[facility] LABCLIA [id number] [place] [address] Nucleated RBC/100 WBC (Bld) [Ratio] 0.0 /100 WBC Normal [facility] Comment on above: Order Comment: Speci men Type: BLOOD SPECIMENOrdering Facility: [facility] Address: [address] [place] [address] Performed By: #### 5 7021-8 ####[facility] LABCLIA [id number] [place] [address] Platelet mean volume (Bld) [Entitic vol] Normal [facility] Comment on above: Order Comment: Speci men Type: BLOOD SPECIMENOrdering Facility: [facility] Address: [address] [place] [address] Result Comment: Unab le to Report. Performed By: #### 5 7021-8 ####[facility] LABCLIA [id number] [place] [address] Platelets (Bld) [#/Vol] 179 10*3/uL Normal 150-400 [facility] Comment on above: Order Comment: Speci men Type: BLOOD SPECIMENOrdering Facility: [facility] Address: [address] [place] [address] Result Comment: Resu lts checked and verified.No clot detected. Performed By: #### 5 7021-8 ####[facility] LABCLIA [id number] [place] [address] RBC (Bld) [#/Vol] 5.28 10*6/uL High 3.90-5.20 [facility] Comment on above: Order Comment: Speci men Type: BLOOD SPECIMENOrdering Facility: [facility] Address: [address] [place] [address] Performed By: #### 5 7021-8 ####[facility] LABCLIA [id number] [place] [address] WBC (Bld) [#/Vol] 3.96 10*3/uL Normal 3.70-11.00 [facility] Comment on above: Order Comment: Speci men Type: BLOOD SPECIMENOrdering Facility: [facility] Address: [address] [place] [address] Performed By: #### 5 7021-8 ####[facility] LABCLIA [id number] [place] [address] CD19 ABSOLUTE COUNTon 2022 CD3-CD19+ cells (Bld) [#/Vol] 0 cells/uL Low 75-660 [facility] Comment on above: Order Comment: Speci men Type: BLOOD SPECIMENOrdering Facility: [facility] Address: [address] [place] [address] Performed By: #### A BS19 ####[facility] LABCLIA [id number] [place] [id number] [id number] [place] CD3-CD19+ cells/100 cells (Bld) 0 % Low 5-22 [facility] Comment on above: Order Comment: Speci men Type: BLOOD SPECIMENOrdering Facility: [facility] Address: [place] [address] Performed By: #### A BS19 ####[facility] LABIA [id number] [place] [address] [place] Lymphocytes/100 WBC FC (Bld) Normal [facility] Comment on above: Order Comment: Speci men Type: BLOOD SPECIMENOrdering Facility: [facility] Address: [place] [address] Performed By: #### A BS19 ####[facility] [id number] [address] OF [place] CNPLilli 09-25-2023 CNPN Telephone (HEMTSA) ----- CAROL ANN MARTINEZ F ([id number]) 1985 F Date Time Provider Department 09/25/23 MILAGROS ESPINO During your visit today, we recorded the following information about you: Milagros Espino RN 09/25/2023 10:40 AM Signed Carol Ann is in our [place] [facility] for her Ocrevus today. I just [...] [D70.2] Order(s):CBC + DIFF [SQCBCDIF] Order #: [id number] FUTURE Prescriptions as of 09/29/2023 - metroNIDAZOLE [...] (FLONASE) 50 mcg/actuation nasal spray Use 1 Charlemont in each nostril once daily. Problem List [...] Status:Closed by MILAGROS ESPINO on 09/29/23 Normal [facility] Comprehensive metabolic 2000 panelon 09-25-2023 Albumin [Mass/Vol] 4.5 g/dL 3.9 - 4.9 g/dL [facility] ALP [Catalytic activity/Vol] 58 U/L 34 - 123 U/L [facility] ALT [Catalytic activity/Vol] 11 U/L 7 - 38 U/L [facility] Anion gap [Moles/Vol] 9 mmol/L 9 - 18 mmol/L [facility] AST [Catalytic activity/Vol] 17 U/L 13 - 35 U/L [facility] Bilirubin [Mass/Vol] 0.5 mg/dL 0.2 - 1 .3 mg/dL [facility] Calcium [Mass/Vol] 9.5 mg/dL 8.5 - 10. 2 mg/dL [facility] Chloride [Moles/Vol] 106 mmol/L High 97 - 10 5 mmol/L [facility] CO2 [Moles/Vol] 26 mmol/L 22 - 30 mmol/L [facility] Creatinine [Mass/Vol] 0.95 mg/dL 0.58 - 0.96 mg/dL [facility] Estimated Glomerular Filtration Rate 79 mL/min/1.73m >=60 mL/min/1.73m [facility] Glucose [Mass/Vol] 89 mg/dL 74 - 99 mg/dL [facility] Potassium [Moles/Vol] 3.6 mmol/L Low 3.7 - 5.1 mmol/L [facility] Protein [Mass/Vol] 7.4 g/dL 6.3 - 8.0 g/dL [facility] Sodium [Moles/Vol] 141 mmol/L 136 - 144 mmol/L [facility] Urea nitrogen [Mass/Vol] 14 mg/dL 7 - 21 mg/dL [facility] Albumin [Mass/Vol] 4.5 g/dL Normal 3.9-4.9 [facility] Comment on above: Order Comment: Speci men Type: BLOOD SPECIMENOrdering Facility: [facility] Address: [address] [place] [address] Performed By: #### 2 4323-8 ####[facility] LABCLIA [id number] [place] [address] ALP [Catalytic activity/Vol] 58 U/L Normal 34-123 [facility] Comment on above: Order Comment: Speci men Type: BLOOD SPECIMENOrdering Facility: [facility] Address: [address] [place] [address] Performed By: #### 2 4323-8 ####[facility] LABCLIA [id number] [place] [address] ALT [Catalytic activity/Vol] 11 U/L Normal 7-38 [facility] Comment on above: Order Comment: Speci men Type: BLOOD SPECIMENOrdering Facility: [facility] Address: [address] [place] [address] Performed By: #### 2 4323-8 ####[facility] LABCLIA [id number] [place] [address] Anion gap [Moles/Vol] 9 mmol/L Normal 9-18 [facility] Comment on above: Order Comment: Speci men Type: BLOOD SPECIMENOrdering Facility: [facility] Address: [address] [place] [address] Performed By: #### 2 4323-8 ####[facility] LABCLIA [id number] [place] [address] AST [Catalytic activity/Vol] 17 U/L Normal 13-35 [facility] Comment on above: Order Comment: Speci men Type: BLOOD SPECIMENOrdering Facility: [facility] Address: [address] [place] [address] Performed By: #### 2 4323-8 ####[facility] LABCLIA [id number] [place] [address] Bilirubin [Mass/Vol] 0.5 mg/dL Normal 0.2-1.3 [facility] Comment on above: Order Comment: Speci men Type: BLOOD SPECIMENOrdering Facility: [facility] Address: [address] [place] [address] Performed By: #### 2 4323-8 ####[facility] LABCLIA [id number] [place] [address] Calcium [Mass/Vol] 9.5 mg/dL Normal 8.5-10.2 [facility] Comment on above: Order Comment: Speci men Type: BLOOD SPECIMENOrdering Facility: [facility] Address: [address] [place] [address] Performed By: #### 2 4323-8 ####[facility] LABCLIA [id number] [place] [address] Chloride [Moles/Vol] 106 mmol/L High 97-105 [facility] Comment on above: Order Comment: Speci men Type: BLOOD SPECIMENOrdering Facility: [facility] Address: [address] [place] [address] Performed By: #### 2 4323-8 ####[facility] LABCLIA [id number] [place] [address] CO2 [Moles/Vol] 26 mmol/L Normal 22-30 [facility] Comment on above: Order Comment: Speci men Type: BLOOD SPECIMENOrdering Facility: [facility] Address: [address] [place] [address] Performed By: #### 2 4323-8 ####[facility] LABCLIA [id number] [place] [address] Creatinine [Mass/Vol] 0.95 mg/dL Normal 0.58-0.96 [facility] Comment on above: Order Comment: Speci men Type: BLOOD SPECIMENOrdering Facility: [facility] Address: [address] [place] [address] Performed By: #### 2 4323-8 ####[facility] LABCLIA [id number] [place] [address] Creatinine and Glomerular filtration rate.predicted panel (S/P/Bld) 79 mL/min/1.73m??? Normal >=60 [facility] Comment on above: Order Comment: Rylee chauhan Type: BLOOD SPECIMENOrdering Facility: [facility] Address: [address] [id number] Result Comment: Priscila mated Glomerular Filtration Rate [...] actual GFR. Performed By: #### 2 4323-8 ####[facility] LABCLIA [id number] [place] [address] Glucose [Mass/Vol] 89 mg/dL Normal 74-99 [facility] Comment on above: Order Comment: Rylee chauhan Type: BLOOD SPECIMENOrdering Facility: [facility] Address: [address] [place] [address] Result Comment: The [place] Diabetes Association (ADA) provides guidance for cutoff [...] Standards of Medical Care in Diabetes 2016, [place] [employer]. Diabetes Care. 2016.39(Suppl 1). Performed By: #### 2 4323-8 ####SUSANMAVERONIKA [facility] LABCLIA [id number] [place] [address] Potassium [Moles/Vol] 3.6 mmol/L Low 3.7-5.1 [facility] Comment on above: Order Comment: Rylee chauhan Type: BLOOD SPECIMENOrdering Facility: [facility] Address: [address] [id number] Performed By: #### 2 4323-8 ####[facility] LABCLIA [id number] [place] [address] Protein [Mass/Vol] 7.4 g/dL Normal 6.3-8.0 [facility] Comment on above: Order Comment: Speci men Type: BLOOD SPECIMENOrdering Facility: [facility] Address: [address] [place] [address] Performed By: #### 2 4323-8 ####[facility] LABCLIA [id number] [place] [address] Sodium [Moles/Vol] 141 mmol/L Normal 136-144 [facility] Comment on above: Order Comment: Speci men Type: BLOOD SPECIMENOrdering Facility: [facility] Address: [address] [place] [address] Performed By: #### 2 4323-8 ####[facility] LABCLIA [id number] [place] [address] Urea nitrogen [Mass/Vol] 14 mg/dL Normal 7-21 [facility] Comment on above: Order Comment: Speci men Type: BLOOD SPECIMENOrdering Facility: [facility] Address: [address] [place] [address] Performed By: #### 2 4323-8 ####[facility] LABCLIA [id number] [place] [address] HBV core Ab Ser Qlon 023 HBV core Ab Ql (S) Negative Normal Negative [facility] Comment on above: Order Comment: Speci men Type: BLOOD SPECIMENOrdering Facility: [facility] Address: [address] [place] [address] Result Comment: No e vidence of current or past infection with Hepatitis B virus. Should recent infection be suspected, repeat testing may be considered 3-4 weeks after this draw. Performed By: #### 5 195-3, 78174-1, 22226-8 ####[facility] LABCLIA [id number] [facility] [place] [address] [place] HBV surface Ab Ql (S)on 09-10 HBV surface Ab Qn (S) 528.76 mIU/mL [facility] HBV surface Ab Qn (S) 528.76 mIU/mL Normal [facility] Comment on above: Order Comment: Speci men Type: BLOOD SPECIMENOrdering Facility: [facility] Address: [address] [place] [address] Result Comment: <8 m IU/mL: No serological evidence of immunity to Hepatitis B Virus. >/= 8 to <12 mIU/mL: No serological evidence of immunity to Hepatitis B Virus. >/= 12 mIU/mL: Consistent with serological evidence of immunity to Hepatitis B Virus. Performed By: #### 5 195-3, 55319-0, 55864-9 ####[facility] LABCLIA [id number] [place] [address] [place] HBV surface Ab Ser Qlon 09-10 HBV surface Ab Ql (S) Positive Normal [facility] Comment on above: Order Comment: Speci men Type: BLOOD SPECIMENOrdering Facility: [facility] Address: [address] [place] [address] Result Comment: Cons istent with serological evidence of immunity to Hepatitis B Virus. Performed By: #### 5 195-3, 16206-1, 12481-8 ####[facility] LABIA [id number] [place] [address] [place] HBV surface Ag Ser Qlon 09-10 HBV surface Ag Ql (S) Negative Normal Negative [facility] Comment on above: Order Comment: Speci men Type: BLOOD SPECIMENOrdering Facility: [facility] Address: [address] [place] [address] Performed By: #### 5 195-3, 66086-5, 83985-7 ####[facility] LABCLIA [id number] [place] [address] [place] HCV Ab Ser Qlon 09-25-2023 HCV Ab Ql (S) Negative Normal Negative [facility] Comment on above: Order Comment: Speci men Type: BLOOD SPECIMENOrdering Facility: [facility] Address: [address] [place] [address] Result Comment: The result suggests no evidence of active infection with Hepatitis C virus. Should recent infection be suspected, repeat testing may be considered 4-6 weeks after this draw. Performed By: #### 1 6128-1 ####[facility] LABCLIA [id number] [place] [place] [address] [place] [address] [place] HEP B CORE AB TOTALon 2022 HBV core Ab Ql (S) Negative Negative [facility] HEP B SURF ABon 09-25-2023 HBV surface Ab Ql (S) Positive [facility] HEP B SURF AG SCRNon 023 HBV surface Ag Ql (S) Negative Negative [facility] HEPATITIS C ANTIBODY IA WITH CONFIRMATIONon 09-25-2023 HCV Ab Ql (S) Negative Negative [facility] PELVIC US WHIon 08-26-2023 [facility] Trichmonas Vaginalis Screen (EIA)on 01-24-2023 Trichomonas Vaginalis Screen (EIA) Negative Normal [facility] Comment on above: Performed By: #### E TRIC #### [facility] [address] [place] [address] Wet Prep-Medical Purposes On berry 01-24-2023 Wet Prep Clue Cellls 1+ Abnormal [facility] Comment on above: Performed By: #### W ETPR #### [facility] [address] [place] [address] Wet Prep Trichomonas See EIA Normal [facility] Comment on above: Performed By: #### W ETPR #### [facility] [address] [place] [address] Wet Prep Yeast None Seen Normal [facility] Comment on above: Performed By: #### W ETPR #### [facility] [address] [place] [address] CBC W Auto Differential pane l (Bld)on 01-17-2023 Basophils (Bld) [#/Vol] 0.07 10*3/uL <0.11 k/uL [facility] Basophils/100 WBC (Bld) 1.0 % [facility] Differential cell count method Nom (Bld) Auto [facility] Eosinophils (Bld) [#/Vol] 0.07 10*3/uL <0.46 k/uL [facility] Eosinophils/100 WBC (Bld) 1.0 % [facility] Erythrocyte distribution width (RBC) [Ratio] 15.5 % High 11.5 - 15.0 % [facility] Hematocrit (Bld) [Volume fraction] 31.5 % Low 36.0 - 46.0 % [facility] Hemoglobin (Bld) [Mass/Vol] 9.4 g/dL Low 11.5 - 15.5 g/dL [facility] Immature granulocytes (Bld) [#/Vol] <0.10 k/uL [facility] Immature granulocytes/100 WBC (Bld) 0.3 % [facility] Lymphocytes (Bld) [#/Vol] 2.30 10*3/uL 1.00 - 4.00 k/uL [facility] Lymphocytes/100 WBC (Bld) 32.7 % [facility] MCH (RBC) [Entitic mass] 22.2 pg Low 26.0 - 34.0 pg [facility] MCHC (RBC) [Mass/Vol] 29.8 g/dL Low 30.5 - 36.0 g/dL [facility] MCV (RBC) [Entitic vol] 74.3 fL Low 80.0 - 100.0 fL [facility] Monocytes (Bld) [#/Vol] 0.51 10*3/uL <0.87 k/uL [facility] Monocytes/100 WBC (Bld) 7.2 % [facility] Neutrophils (Bld) [#/Vol] 4.07 10*3/uL 1.45 - 7.50 k/uL [facility] Neutrophils/100 WBC (Bld) 57.8 % [facility] Nucleated RBC (Bld) [#/Vol] <0.01 k/uL [facility] Nucleated RBC/100 WBC (Bld) [Ratio] 0.0 /100 WBC [facility] Platelet mean volume (Bld) [Entitic vol] 13.6 fL High 9.0 - 12.7 fL [facility] Platelets (Bld) [#/Vol] 304 10*3/uL 150 - 400 k/uL [facility] RBC (Bld) [#/Vol] 4.24 10*6/uL 3.90 - 5.2 0 m/uL [facility] WBC (Bld) [#/Vol] 7.04 10*3/uL 3.70 - 11. 00 k/uL [facility] Comprehensive metabolic 2000 panelon 01-17-2023 Albumin [Mass/Vol] 4.5 g/dL 3.9 - 4.9 g/dL [facility] ALP [Catalytic activity/Vol] 62 U/L 34 - 123 U/L [facility] ALT [Catalytic activity/Vol] 11 U/L 7 - 38 U/L [facility] Anion gap [Moles/Vol] 9 mmol/L 9 - 18 mmol/L [facility] AST [Catalytic activity/Vol] 18 U/L 13 - 35 U/L [facility] Bilirubin [Mass/Vol] 0.3 mg/dL 0.2 - 1 .3 mg/dL [facility] Calcium [Mass/Vol] 9.8 mg/dL 8.5 - 10. 2 mg/dL [facility] Chloride [Moles/Vol] 104 mmol/L 97 - 10 5 mmol/L [facility] CO2 [Moles/Vol] 26 mmol/L 22 - 30 mmol/L [facility] Creatinine [Mass/Vol] 0.79 mg/dL 0.58 - 0.96 mg/dL [facility] Estimated Glomerular Filtration Rate 99 mL/min/1.73m >=60 mL/min/1.73m [facility] Glucose [Mass/Vol] 69 mg/dL Low 74 - 99 mg/dL [facility] Potassium [Moles/Vol] 4.2 mmol/L 3.7 - 5.1 mmol/L [facility] Protein [Mass/Vol] 7.9 g/dL 6.3 - 8.0 g/dL [facility] Sodium [Moles/Vol] 139 mmol/L 136 - 144 mmol/L [facility] Urea nitrogen [Mass/Vol] 11 mg/dL 7 - 21 mg/dL [facility] MR Brain WO and W contrast I [...] Improvement: None. New Enhancing Lesions: None T2 Hume of Disease: Mild. Parenchymal Volume Loss: None. [...] history of multiple sclerosis. Cord T2 Plaque Hume: Moderate New T2 Lesions: None Interval Cord [...] equal to 2mm). DIVISION OF RADIOLOGY Provider, [facility] - 01/02/2023 * * *Final Report* * * DATE OF EXAM: Jan 02 2023 11:24AM LN [id number] - MRI BRAIN WO/W IVCON / [...] Improvement: None. New Enhancing Lesions: None T2 Hume of Disease: Mild. Parenchymal Volume Loss: None. [...] history of multiple sclerosis. Cord T2 Plaque Hume: Moderate New T2 Lesions: None Interval Cord [...] vertebrae with counting from the craniocervical junction. Lens Assistant: ANGEL Transcribe Date/Time: Jan 02 2023 12:13P Dictated by : JEANIE MAKI MD This examination was interpreted and the report reviewed and electronically signed by: JEANIE MAKI MD on Jan 02 2023 12:23PM [facility] MR Cervical spine WO and W c [...] Improvement: None. New Enhancing Lesions: None T2 Hume of Disease: Mild. Parenchymal Volume Loss: None. [...] history of multiple sclerosis. Cord T2 Plaque Hume: Moderate New T2 Lesions: None Interval Cord [...] equal to 2mm). DIVISION OF RADIOLOGY Provider, [facility] - 01/02/2023 * * *Final Report* * [...] Improvement: None. New Enhancing Lesions: None T2 Hume of Disease: Mild. Parenchymal Volume Loss: None. [...] history of multiple sclerosis. Cord T2 Plaque Hume: Moderate New T2 Lesions: None Interval Cord [...] vertebrae with counting from the craniocervical junction. Lens Assistant: [facility] Transcribe Date/Time: Jan 02 2023 12:13P Dictated by : JEANIE MAKI MD This examination was interpreted and the report reviewed and electronically signed by: JEANIE MAKI MD on Jan 02 2023 12:23PM EST [facility] No Panel Informationon 01-02 IMPRESSION: Multiple intracranial [...] vertebrae with counting from the craniocervical junction. Lens Assistant: [facility] Transcribe Date/Time: Jan 02 2023 12:13P Dictated by : JEANIE MAKI MD This examination was interpreted and the report reviewed and electronically signed by: JEANIE MAKI MD on Jan 02 2023 12:23PM [facility] DIVISION OF RADIOLOGY Brain Enhancing Lesions None [facility] Brain Interval Improvement None [facility] Brain New T2 Lesions None Site [facility] Brain Other Significant MRI Findings None. [facility] Brain Parenchymal Volume Loss None [facility] Brain T2 Hume of Disease Mild [facility] Cervical spine enhancing lesions None [facility] Cervical Spine New T2 Lesions None [facility] Cervical Spine T2 Hume of Disease Moderate [facility] Radiology Study observation (narrative) [facility] No Panel InformationOrdered By: [facility]cf Provider on 01-02-2023 [facility] C.trachomatis N.gonorrhoeae DNAon 12-10-2022 C. trachomatis DNA DEIRDRE+probe Ql (Unsp spec) Negative Normal Negative [facility] N. gonorrhoeae DNA DEIRDRE+probe Ql (Unsp spec) Negative Normal Negative [facility] Trichmonas Vaginalis Screen (EIA)on 12-06-2022 Trichomonas Vaginalis Screen (EIA) Negative Normal [facility] Comment on above: Performed By: #### E TRIC #### [facility] [address] [place] [address] Wet Prep-Medical Purposes On berry 12-06-2022 Wet Prep Clue Cellls 1+ Abnormal [facility] Comment on above: Performed By: #### W ETPR #### [facility] [address] [place] [address] Wet Prep Trichomonas See EIA Normal [facility] Comment on above: Performed By: #### W ETPR #### [facility] [address] [place] [address] Wet Prep Yeast None Seen Normal [facility] Comment on above: Performed By: #### W ETPR #### [facility] [address] [place] [address] Albumin [Mass/volume] in Ser um or PlasmaOrdered By: Vishal Agarwal on 10-27-2022 Albumin [Mass/Vol] 4.1 g/dL 3.2-5.5 [facility] Basophils Auto (Bld) [#/Vol] Ordered By: Vishal Agarwal on 10-27-2022 Basophils (Bld) [#/Vol] 0.0 10*3/uL 0.0-0.2 [facility] Basophils/100 WBC Auto (Bld) Ordered By: Vsihal Agarwal on 10-27-2022 Basophils/100 WBC (Bld) 0.4 % . [facility] COVID CepheidOrdered By: Broko Agarwal on 10-27-2022 SARS-CoV-2 (COVID-19) Ab IA Ql Positive Negative [facility] Comment on above: This is a duplicate CepMedialetsid Xpert Xpress CoV-2/Flu/RSV Plus RNA by RT-PCR result to be used for statistical tracking purpose only. SARS-CoV-2 (COVID-19) RNA DEIRDRE+probe Ql (Unsp spec) [facility] Creatinine and Glomerular fi ltration rate.predicted panel (S/P/Bld)Ordered By: Vishal Agarwal on 10-27-2022 Creatinine [Mass/Vol] 0.96 mg/dL 0.44-1.03 [facility] Eosinophils Auto (Bld) [#/Vo l]Ordered By: Vishal Agarwal on 10-27-2022 Eosinophils (Bld) [#/Vol] 0.0 10*3/uL 0.0-0.45 [facility] Eosinophils/100 WBC Auto (Bl d)Ordered By: Vishal Agarwal on 10-27-2022 Eosinophils/100 WBC (Bld) 0.0 % . [facility] Erythrocyte distribution wid th Auto (RBC) [Ratio]Ordered By: Vishal Agarwal on 10-27-2022 Erythrocyte distribution width (RBC) [Ratio] 17.4 % 11.9-15.3 [facility] Estimated glomerular filtrat ion rate (GFR) non- AmericanOrdered By: Vishal Agarwal on 10-27-2022 GFR/1.73 sq M.predicted among non-blacks MDRD (S/P/Bld) [Vol rate/Area] > 60 mL/Min [facility] Globulin Calc (S) [Mass/Vol] Ordered By: Vishal Agarwal on 10-27-2022 Globulin (S) [Mass/Vol] 3.5 g/dL [facility] Hematocrit Auto (Bld) [Volum e fraction]Ordered By: Vishal Agarwal on 10-27-2022 Hematocrit (Bld) [Volume fraction] 38.7 % 34.0-46.4 [facility] Hemoglobin [Mass/volume] in BloodOrdered By: Vishal Agarwal on 10-27-2022 Hemoglobin (Bld) [Mass/Vol] 12.1 g/dL 11.8-15.4 [facility] Leukocytes [#/volume] correc che for nucleated erythrocytes in Blood by Automated counOrdered By: Vishal Agarwal on 10-27-2022 WBC corrected for nucl RBC Auto (Bld) [#/Vol] 4.5 10*3/uL 3.8-11.6 [facility] Lymphocytes Auto (Bld) [#/Vo l]Ordered By: Vishal Agarwal on 10-27-2022 Lymphocytes (Bld) [#/Vol] 0.5 10*3/uL 1.00-4.8 [facility] Lymphocytes/100 WBC Auto (Bl d)Ordered By: Vishal Agarwal on 10-27-2022 Lymphocytes/100 WBC (Bld) 10.8 % . [facility] MCH Auto (RBC) [Entitic mass ]Ordered By: Vishal Agarwal on 10-27-2022 MCH (RBC) [Entitic mass] 23.7 pg 24.7-34.3 [facility] MCHC Auto (RBC) [Mass/Vol]Or dered By: Vishal Agarwal on 10-27-2022 MCHC (RBC) [Mass/Vol] 31.2 g/dL 32.0-35.0 [facility] MCV Auto (RBC) [Entitic vol] Ordered By: Vishal Agarwal on 10-27-2022 MCV (RBC) [Entitic vol] 76.0 fL 80-100 [facility] Monocyte distribution width [Entitic volume] in Blood by AutomatedOrdered By: Vishal Agarwal on 10-27-2022 Monocyte distribution width Auto (Bld) [Entitic vol] 24.86 % 0.00-20.00 [facility] Comment on above: For adults in ED, MD W > 20.0 may be associated with a higher risk of sepsis during the first 12 hrs of hospital admission Monocytes Auto (Bld) [#/Vol] Ordered By: Vishal Agarwal on 10-27-2022 Monocytes (Bld) [#/Vol] 0.8 10*3/uL 0.0-0.8 [facility] Monocytes/100 WBC Auto (Bld) Ordered By: Vishal Agarwal on 10-27-2022 Monocytes/100 WBC (Bld) 16.8 % . [facility] Neutrophils Auto (Bld) [#/Vo l]Ordered By: Vishal Agarwal on 10-27-2022 Neutrophils (Bld) [#/Vol] 3.2 10*3/uL 1.8-7.7 [facility] Neutrophils/100 WBC Auto (Bl d)Ordered By: Vishal Agarwal on 10-27-2022 Neutrophils/100 WBC (Bld) 72.0 % . [facility] No Panel InformationOrdered By: Vishal Agarwal on 10-27-2022 Estimated GFR () > 60 mL/Min [facility] Comment on above: GFR estimated refere nce range: According to KDOQI guidelines, <60 ml/min/1.73m2 is sufficient to diagnose a patient with chronic kidney disease. Pharmacy Creatinine Clearance (Chem 75.11 [facility] Nucleated erythrocytes [Pres ence] in Blood by Automated countOrdered By: Vishal Agarwal on 10-27-2022 Nucleated RBC Auto Ql (Bld) 0.1 /100{WBC} 0-0.5 [facility] Platelet mean volume Auto (B ld) [Entitic vol]Ordered By: Vishal Agarwal on 10-27-2022 Platelet mean volume (Bld) [Entitic vol] 11.0 fL 6.3-10.7 [facility] Platelets Auto (Bld) [#/Vol] Ordered By: Vishal Agarwal on 10-27-2022 Platelets (Bld) [#/Vol] 148 10*3/uL 150-450 [facility] Protein [Mass/volume] in Ser um or PlasmaOrdered By: Vishal Agarwal on 10-27-2022 Protein [Mass/Vol] 7.6 g/dL 6.1-7.9 [facility] RBC Auto (Bld) [#/Vol]Ordere d By: Vishal Agarwal on 10-27-2022 RBC (Bld) [#/Vol] 5.10 10*6/uL 3.60-5.00 [facility] Serum or plasma alanine gannon otransferase measurement without P-5'-P (enzymatic activiOrdered By: Vishal Agarwal on 10-27-2022 ALT No additional P-5'-P [Catalytic activity/Vol] 18 U/L 10-60 [facility] Serum or plasma albumin/glob ulin mass ratioOrdered By: Vishal Agarwal on 10-27-2022 Albumin/Globulin [Mass ratio] 1.2 {ratio} [facility] Serum or plasma alkaline bull sphatase measurement (enzymatic activity/volume)Ordered By: Vishal Agarwal on 10-27-2022 ALP [Catalytic activity/Vol] 43 U/L 32-92 [facility] Serum or plasma anion gap de terminationOrdered By: Vishal Agarwal on 10-27-2022 Anion gap [Moles/Vol] 13.5 mmol/L 6.0-15.0 [facility] Serum or plasma aspartate am inotransferase measurement (enzymatic activity/volume)Ordered By: Vishal Agarwal on 10-27-2022 AST [Catalytic activity/Vol] 24 U/L 10-42 [facility] Serum or plasma calcium scotty urement (mass/volume)Ordered By: Vishal Agarwal on 10-27-2022 Calcium [Mass/Vol] 9.2 mg/dL 8.2-10.2 [facility] Serum or plasma chloride suzie surement (moles/volume)Ordered By: Vishal Agarwal on 10-27-2022 Chloride [Moles/Vol] 101 mmol/L 95-114 [facility] Serum or plasma glucose scotty urement (mass/volume)Ordered By: Vishal Agarwal on 10-27-2022 Glucose [Mass/Vol] 102 mg/dL 70-100 [facility] Comment on above: ADA recommended refe rence rangeRandom Glucose Reference Range is dependent on time and content of last meal. Glucose of more than 200 mg/dL in a nonstressed, ambulatory subject supports the diagnosis of Diabetes Mellitus. Serum or plasma potassium me asurement (moles/volume)Ordered By: Vishal Agarwal on 10-27-2022 Potassium [Moles/Vol] 3.7 mmol/L 3.5-5.1 [facility] Serum or plasma sodium measu rement (moles/volume)Ordered By: Vishal Agarwal on 10-27-2022 Sodium [Moles/Vol] 134 mmol/L 136-146 [facility] Serum or plasma total biliru bin measurement (mass/volume)Ordered By: Vishal Agarwal on 10-27-2022 Bilirubin [Mass/Vol] 0.8 mg/dL 0.3-1.2 [facility] Serum or plasma total carbon dioxide measurement (moles/volume)Ordered By: Vishal Agarwal on 10-27-2022 CO2 [Moles/Vol] 23.2 mmol/L 22.0-30.0 [facility] Serum or plasma urea nitroge n measurement (mass/volume)Ordered By: Vishal Agarwal on 10-27-2022 Urea nitrogen [Mass/Vol] 10 mg/dL 9-23 [facility] [place] WBC Auto (Bld) [#/Vol]Ordere d By: Vishal Agarwal on 10-27-2022 WBC (Bld) [#/Vol] 4.5 10*3/uL 3.8-11.6 [facility] HBV surface Ab IA Ql (S)on 1 11-27-2021 HBV surface Ag Ql (S) Negative Negative [facility] HEP B CORE AB TOTALon 2021 HBV core Ab Ql (S) Negative Negative [facility] HEP B SURF AB QUALon 022 HBV surface Ab Ql (S) Positive Abnormal Negative [facility] HEP C AB IA W/CONF SCRNon HCV Ab Ql (S) Negative Negative [facility] MR Brain WO and W contrast I [...] Improvement: None. New Enhancing Lesions: None T2 Hume of Disease: Mild. Parenchymal Volume Loss: None. Other Significant Findings: None. MR CERVICAL: Counting reference: Craniocervical junction. Anatomic Variants: None. Alignment: Alignment is anatomic. Craniocervical Junction: Craniocervical junction is normal. Cord Findings: Patchy foci of hyperintensity are noted in the cervical cord on the T2, IR and axial gradient echo images compatible with the history of multiple sclerosis. Cord T2 Plaque Hume: Moderate New T2 Lesions: None Interval Cord [...] history of multiple sclerosis. Cord T2 Plaque Hume: Moderate New T2 Lesions: Greater than three [...] equal to 2mm). DIVISION OF RADIOLOGY Provider, [facility] - 07/23/2022 * * *Final Report* * * DATE OF EXAM: Jul 23 2022 10:56AM [facility] - MRI BRAIN WO/W IVCON / [...] Improvement: None. New Enhancing Lesions: None T2 Hume of Disease: Mild. Parenchymal Volume Loss: None. Other Significant Findings: None. MR CERVICAL: Counting reference: Craniocervical junction. Anatomic Variants: None. Alignment: Alignment is anatomic. Craniocervical Junction: Craniocervical junction is normal. Cord Findings: Patchy foci of hyperintensity are noted in the cervical cord on the T2, IR and axial gradient echo images compatible with the history of multiple sclerosis. Cord T2 Plaque Hume: Moderate New T2 Lesions: None Interval Cord [...] history of multiple sclerosis. Cord T2 Plaque Hume: Moderate New T2 Lesions: Greater than three [...] and assume there are 5 lumbar-type vertebrae. Lens Assistant: ANGEL Transcribe Date/Time: Jul 23 2022 11:16A Dictated by : ANIRUDH NUÑEZ MD This examination was interpreted and the report reviewed and electronically signed by: ANIRUDH NUÑEZ MD on Jul 23 2022 6:11PM [facility] MR Cervical spine WO and W c ontrast Joe 07-23-2022 * * *Final Report* * * DATE OF EXAM: Jul 23 2022 10:56AM [facility] 0298 - MRI CERVICAL SPINE WO/W [...] Improvement: None. New Enhancing Lesions: None T2 Hume of Disease: Mild. Parenchymal Volume Loss: None. Other Significant Findings: None. MR CERVICAL: Counting reference: Craniocervical junction. Anatomic Variants: None. Alignment: Alignment is anatomic. Craniocervical Junction: Craniocervical junction is normal. Cord Findings: Patchy foci of hyperintensity are noted in the cervical cord on the T2, IR and axial gradient echo images compatible with the history of multiple sclerosis. Cord T2 Plaque Hume: Moderate New T2 Lesions: None Interval Cord [...] history of multiple sclerosis. Cord T2 Plaque Hume: Moderate New T2 Lesions: Greater than three [...] equal to 2mm). DIVISION OF RADIOLOGY Provider, [facility] - 07/23/2022 * * *Final Report* * * DATE OF EXAM: Jul 23 2022 10:56AM [facility] - MRI CERVICAL SPINE WO/W IVCON [...] Improvement: None. New Enhancing Lesions: None T2 Hume of Disease: Mild. Parenchymal Volume Loss: None. Other Significant Findings: None. MR CERVICAL: Counting reference: Craniocervical junction. Anatomic Variants: None. Alignment: Alignment is anatomic. Craniocervical Junction: Craniocervical junction is normal. Cord Findings: Patchy foci of hyperintensity are noted in the cervical cord on the T2, IR and axial gradient echo images compatible with the history of multiple sclerosis. Cord T2 Plaque Hume: Moderate New T2 Lesions: None Interval Cord [...] history of multiple sclerosis. Cord T2 Plaque Hume: Moderate New T2 Lesions: Greater than three [...] and assume there are 5 lumbar-type vertebrae. Lens Assistant: PSCB Transcribe Date/Time: Jul 23 2022 11:16A Dictated by : ANIRUDH NUÑEZ MD This examination was interpreted and the report reviewed and electronically signed by: ANIRUDH NUÑEZ MD on Jul 23 2022 6:11PM [facility] MR Thoracic spine WO and W c [...] Improvement: None. New Enhancing Lesions: None T2 Hume of Disease: Mild. Parenchymal Volume Loss: None. Other Significant Findings: None. MR CERVICAL: Counting reference: Craniocervical junction. Anatomic Variants: None. Alignment: Alignment is anatomic. Craniocervical Junction: Craniocervical junction is normal. Cord Findings: Patchy foci of hyperintensity are noted in the cervical cord on the T2, IR and axial gradient echo images compatible with the history of multiple sclerosis. Cord T2 Plaque Hume: Moderate New T2 Lesions: None Interval Cord [...] history of multiple sclerosis. Cord T2 Plaque Hume: Moderate New T2 Lesions: Greater than three [...] equal to 2mm). DIVISION OF RADIOLOGY Provider, [facility] - 07/23/2022 * * *Final Report* * * DATE OF EXAM: Jul 23 2022 10:56AM [address] 0326 - MRI THORACIC SPINE WO/W IVCON [...] Improvement: None. New Enhancing Lesions: None T2 Hume of Disease: Mild. Parenchymal Volume Loss: None. Other Significant Findings: None. MR CERVICAL: Counting reference: Craniocervical junction. Anatomic Variants: None. Alignment: Alignment is anatomic. Craniocervical Junction: Craniocervical junction is normal. Cord Findings: Patchy foci of hyperintensity are noted in the cervical cord on the T2, IR and axial gradient echo images compatible with the history of multiple sclerosis. Cord T2 Plaque Hume: Moderate New T2 Lesions: None Interval Cord [...] history of multiple sclerosis. Cord T2 Plaque Hume: Moderate New T2 Lesions: Greater than three [...] and assume there are 5 lumbar-type vertebrae. Lens Assistant: PSCB Transcribe Date/Time: Jul 23 2022 11:16A Dictated by : ANIRUDH NUÑEZ MD This examination was interpreted and the report reviewed and electronically signed by: ANIRUDH NUÑEZ MD on Jul 23 2022 6:11PM EST [facility] No Panel Informationon 07-23 IMPRESSION: Multiple intracranial [...] and assume there are 5 lumbar-type vertebrae. Lens Assistant: [facility] Transcribe Date/Time: Jul 23 2022 11:16A Dictated by : ANIRUDH NUÑEZ MD This examination was interpreted and the report reviewed and electronically signed by: ANIRUDH NUÑEZ MD on Jul 23 2022 6:11PM [facility] DIVISION OF RADIOLOGY Radiology Study observation (narrative) [facility] No Panel InformationOrdered By: Ccf Provider on 07-23-2022 [facility] CBC W Auto Differential pane l (Bld)on 04-25-2022 Abs Immature Gran <0.03 <0.10 k/uL [facility] Basophils (Bld) [#/Vol] 0.03 10*3/uL <0.11 k/uL [facility] Basophils/100 WBC (Bld) 0.6 % [facility] Differential cell count method Nom (Bld) Auto [facility] Eosinophils (Bld) [#/Vol] 0.10 10*3/uL <0.46 k/uL [facility] Eosinophils/100 WBC (Bld) 2.0 % [facility] Erythrocyte distribution width (RBC) [Ratio] 13.9 % 11.5 - 15.0 % [facility] Hematocrit (Bld) [Volume fraction] 38.5 % 36.0 - 46.0 % [facility] Hemoglobin (Bld) [Mass/Vol] 12.0 g/dL 11.5 - 15.5 g/dL [facility] Immature Gran % 0.2 % [facility] Lymphocytes (Bld) [#/Vol] 1.54 10*3/uL 1.00 - 4.00 k/uL [facility] Lymphocytes/100 WBC (Bld) 30.2 % [facility] MCH (RBC) [Entitic mass] 25.4 pg Low 26.0 - 34.0 pg [facility] MCHC (RBC) [Mass/Vol] 31.2 g/dL 30.5 - 36.0 g/dL [facility] MCV (RBC) [Entitic vol] 81.4 fL 80.0 - 100.0 fL [facility] Monocytes (Bld) [#/Vol] 0.66 10*3/uL <0.87 k/uL [facility] Monocytes/100 WBC (Bld) 12.9 % [facility] Neutrophils (Bld) [#/Vol] 2.76 10*3/uL 1.45 - 7.50 k/uL [facility] Neutrophils/100 WBC (Bld) 54.1 % [facility] Nucleated RBC (Bld) [#/Vol] 10*3/uL <0.01 k/uL [facility] Nucleated RBC/100 WBC (Bld) [Ratio] 0.0 /100 WBC [facility] Platelet mean volume (Bld) [Entitic vol] 13.5 fL High 9.0 - 12.7 fL [facility] Platelets (Bld) [#/Vol] 168 10*3/uL 150 - 400 k/uL [facility] RBC (Bld) [#/Vol] 4.73 10*6/uL 3.90 - 5.2 0 m/uL [facility] WBC (Bld) [#/Vol] 5.10 10*3/uL 3.70 - 11. 00 k/uL [facility] URINALYSIS, REFLEX MICROSCOP ICon 04-25-2022 Bilirubin Ql (U) Negative Negative [facility] Clarity (Unsp spec) Clear Clear [facility] Color (U) Light Yellow Yellow [facility] Glucose Test strip (U) [Mass/Vol] Negative Negative [facility] Hemoglobin Ql (U) Negative Negative [facility] Ketones Ql (U) Negative Negative [facility] Leukocyte esterase Test strip Ql (U) Negative Negative [facility] Nitrite Ql (U) Negative Negative [facility] pH (U) 6.0 [pH] 5.0 - 8.0 [facility] Protein (U) [Mass/Vol] Negative Negative [facility] Specific gravity (U) [Rel density] 1.021 1.005 - 1.030 [facility] Urobilinogen Ql (U) Negative Negative [facility] CNPNon 11-13-2021 CNPN Telephone (NEADFV) ----- CAROL ANN MARTINEZ ([id number]) 1985 F Date Time Provider Department 11/13/21 NIDIA GARCIA NERUSSELLFV During your visit today, we [...] (FLONASE) 50 mcg/actuation nasal spray Use 1 [place] in each nostril once daily. - MAGNESIUM ORAL Take 1 tablet by mouth twice daily. - Vwpduuny-Yn-Hqz-Fe-FA ( VITAMIN) tab Take 1 tablet by [...] Encounter Status:Closed by AUDIE GABRIEL on 11/13/21 [facility] Christiano 07-24-2021 CNPN Telephone (NEADFV) ----- CAROL ANN MARTINEZ ([id number]) 1985 F Date Time Provider Department 07/24/21 NIDIA GARCIA NERUSSELLFV During your visit today, we recorded the following information about you: Hanna Page Pss 07/24/2021 12:34 PM Signed Patient called stating she is scheduled for an Ocrevus infusion on August 15, but will be out of state in [place]. She would like to have the infusion done there at [facility]. Also,she has new insurance as of May and will need to get the Ocrevus approved through her new insurance ([employer]- ). For questions call patient at [phone] Alexandra Blackman 07/24/2021 1:21 PM Signed Patient called back with a phone number of [phone] for [facility]. The phone # her [place] is [phone]. Audie Gabriel RN 07/24/2021 1:51 PM Signed [...] (FLONASE) 50 mcg/actuation nasal spray Use 1 [place] in each nostril once daily. - MAGNESIUM ORAL Take 1 tablet by mouth twice daily. - Mfqtkcqh-Da-Nth-Fe-FA ( VITAMIN) tab Take 1 tablet by [...] Status:Closed by AUDIE GABRIEL on 07/24/21 [facility] Telephone Encounteron 2020 Detail Manager Authentication Interface Message Text Patient was identified by name and date of . Patient given message, patient denied additional questions. ----- Message from Sofy Pandya MD sent at 03/22/2021 12:34 PM EDT ----- Please notify neg HPV with ascus pap, OK to f/u in [address] Sofy Pandya Normal [facility] Telephone Encounteron 2020 Detail Manager Authentication Interface Message Text ----- Message from Sofy Pandya MD sent at 03/08/2021 2:28 PM EDT ----- Please notify ok Normal [facility] GC/CHLAMYDIA/TRICHOMONAS AMP LIFICATIONon 03-07-2021 GC/CHLAMYDIA/TRICHOMO BERTIN AMPLIFICATION CHLAMYDIA AMPLIFICATION: Negative GC AMPLIFICATION: Negative TRICHOMONAS AMPLIFICATION: Negative Normal Negative [facility] Comment on above: Order Comment: This test is performed using an automated nucleic acid amplification assay ([employer] Performed By: #### G CT #### [facility] [address] [place] [address] [place], [place] HEPATITIS C ANTIBODYon 03-07 HCV Non-Reactive Normal Nonreactive [facility] Comment on above: Performed By: #### H CV #### [facility] [address], [place], HIV1 HIV2 AGAB SCRNon 2020 HIV AG-AB SCREEN Non-Reactive Normal Non-Reactive [facility] Comment on above: Order Comment: HIV Information: ???[place] Rev. code 3701.243(E): This information has been [...] agab scrn #### [facility] [address], [place], HUMAN PAPILLOMA VIRUSon 02-09 HPV HIGH RISK Negative Normal Negative [facility] Comment on above: Order Comment: This test is performed using an automated nucleic acid amplification assay ([employer] [place], [place]). This assay detects RNA of HPV types 16,18,31,33,35,39,45,51,52,56,58,59,66 and 68 in cervical specimens. Result Comment: A ne gative result does not exclude the possibility of low levels of infection or sampling error. 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 No LMP recorded. Periods are regular [...] Abnormal Pap smear of cervix 2007- in [place]. had LEEP. no abn pap since * [...] Intravenous Push route. * Cholecalciferol 1.25 MG (45486 UT) TABS Take 50,000 Units by mouth once weekly. * Tdfomjoz-Kte-Mn-FA (Mynatal) CAPS Take by mouth. 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 Normal [facility] Detail Manager Authentication Interface Message Text Patient at [...] bandage applied. Site appears normal. Normal [facility] Filter Paper Leadon 11-24-20 20 Lead <2 Normal <5 [facility] Lead Interpretation Normal [facility] Comment on above: Result Comment: Occu pationally exposed adults lead >40 requires medical followup. This test was developed and its performance characteristics determined by [facility]. It has not been cleared or approved by the U.S. Food and Drug Administration. The FDA has determined that such clearance or approval is not necessary. This test is used for clinical purposes. It should not be regarded as investigational or for research. Type of Puncture Capillary Specimen Normal [facility] Vital Signs Date Time Vital Sign Value Performing Clinician Facility 09-22-2024 08:42-0500 Body height 167.6 cm Estella Dutton [facility] 09-22-2024 08:42-0500 Body mass index (BMI) [Ratio] 20.98 kg/m2 Estella Dutton [facility] 09-22-2024 08:42-0500 Body weight 58.97 kg Estella Dutton [facility] 09-07-2024 14:28-0400 Body mass index (BMI) [Ratio] 22.02 kg/m2 Jahaira GRIGGS Work Phone: [facility] 09-07-2024 14:28-0400 Body weight 62.82 kg Jahaira GRIGGS Work Phone: [facility] 09-07-2024 14:28-0400 Diastolic blood pressure 72 mm[Hg] Jahaira GRIGGS Work Phone: [facility] 09-07-2024 14:28-0400 Systolic blood pressure 112 mm[Hg] Jahaira GRIGGS Work Phone: [facility] 08-26-2024 19:22-0400 Body mass index (BMI) [Ratio] 22.26 kg/m2 Aleyda GRIGGS Work Phone: [facility] 08-26-2024 19:22-0400 Body temperature 98.01 [degF] Aleyda GRIGGS Work Phone: [facility] 08-26-2024 19:22-0400 Body weight 63.5 kg Aleyda GRIGGS Work Phone: [facility] 08-26-2024 19:22-0400 Diastolic blood pressure 70 mm[Hg] Aleyda Hemmer PA Work Phone: [facility] 08-26-2024 19:22-0400 Heart rate 102 /min Aleyda Hemmer PA Work Phone: [facility] 08-26-2024 19:22-0400 SaO2% (BldA) [Mass fraction] 98 % Aleyda Hemmer PA Work Phone: [facility] 08-26-2024 19:22-0400 Systolic blood pressure 122 mm[Hg] Aleyda Hemmer PA Work Phone: [facility] 08-24-2024 10:30-0400 Body mass index (BMI) [Ratio] 21.96 kg/m2 Jahaira Modesta PA Work Phone: [facility] 08-24-2024 10:30-0400 Body weight 62.65 kg Jahaira Modesta PA Work Phone: [facility] 08-24-2024 10:30-0400 Diastolic blood pressure 70 mm[Hg] Jahaira [place] PA Work Phone: [facility] 08-24-2024 10:30-0400 Systolic blood pressure 120 mm[Hg] Jahaira Modesta PA Work Phone: [facility] 08-17-2024 14:43-0400 Body height 168.9 cm Janice Escobar MD Work Phone: [facility] 08-17-2024 14:43-0400 Body mass index (BMI) [Ratio] 21.94 kg/m2 Janice Escobar MD Work Phone: [facility] 08-17-2024 14:43-0400 Body weight 62.6 kg Janice Escobar MD Work Phone: [facility] 08-17-2024 14:43-0400 Diastolic blood pressure 71 mm[Hg] Janice Escobar MD Work Phone: [facility] 08-17-2024 14:43-0400 Heart rate 93 /min Janice Escobar MD Work Phone: [facility] 08-17-2024 14:43-0400 Systolic blood pressure 105 mm[Hg] Janice Escobar MD Work Phone: [facility] 08-10-2024 10:06-0400 Body mass index (BMI) [Ratio] 21.91 kg/m2 Clarke Mayte DO Work Phone: [facility] 08-10-2024 10:06-0400 Body weight 62.51 kg Clarke Mayte DO Work Phone: [facility] 08-10-2024 10:06-0400 Diastolic blood pressure 70 mm[Hg] Clarke Mayte DO Work Phone: [facility] 08-10-2024 10:06-0400 Systolic blood pressure 104 mm[Hg] Clarke Mayte DO Work Phone: [facility] 07-19-2024 12:03-0400 Body height 167.[address] MD Work Phone: [facility] 07-19-2024 12:03-0400 Body mass index (BMI) [Ratio] 21.88 kg/m2 Janice Lane MD Work Phone: [facility] 07-19-2024 12:03-0400 Body temperature 97.59 [degF] Janice Lane MD Work Phone: [facility] 07-19-2024 12:03-0400 Body weight 61.[address] MD Work Phone: [facility] 07-19-2024 12:03-0400 Diastolic blood pressure 67 mm[Hg] Janice Lane MD Work Phone: [facility] 07-19-2024 12:03-0400 Heart rate 86 /min Janice Lane MD Work Phone: [facility] 07-19-2024 12:03-0400 SaO2% (BldA) [Mass fraction] 99 % Janice Lane MD Work Phone: [facility] 07-19-2024 12:03-0400 Systolic blood pressure 107 mm[Hg] Janice Lane MD Work Phone: [facility] 03-04-2024 13:00-0400 Body height 168.[address] MD Work Phone: [facility] 03-04-2024 13:00-0400 Body mass index (BMI) [Ratio] 19.52 kg/m2 Janice Lane MD Work Phone: [facility] 03-04-2024 13:00-0400 Body temperature 98.1 [degF] Janice Lane MD Work Phone: [facility] 03-04-2024 13:00-0400 Body weight 55.[address] MD Work Phone: [facility] 03-04-2024 13:00-0400 Diastolic blood pressure 66 mm[Hg] Janice Lane MD Work Phone: [facility] 03-04-2024 13:00-0400 Heart rate 95 /min Janice Lane MD Work Phone: [facility] 03-04-2024 13:00-0400 SaO2% (BldA) [Mass fraction] 100 % Janice Lane MD Work Phone: [facility] 03-04-2024 13:00-0400 Systolic blood pressure 101 mm[Hg] Janice Lane MD Work Phone: [facility] 12-25-2023 10:54-0500 Body weight 56.8 kg Tor Hernandez APRN.ENVIRONMENTAL PROJECTS ADVISOR Work Phone: [facility] 12-25-2023 10:54-0500 Diastolic blood pressure 67 mm[Hg] Tor Hernandez APRN.ENVIRONMENTAL PROJECTS ADVISOR Work Phone: [facility] 12-25-2023 10:54-0500 Heart rate 87 /min Tor Hernandez APRN.ENVIRONMENTAL PROJECTS ADVISOR Work Phone: [facility] 12-25-2023 10:54-0500 Systolic blood pressure 95 mm[Hg] Tor Hernandez APRN.ENVIRONMENTAL PROJECTS ADVISOR Work Phone: [facility] 12-23-2023 13:34-0500 Body mass index (BMI) [Ratio] 20.13 kg/m2 Marvin Howard DO Work Phone: [facility] 12-23-2023 13:34-0500 Body temperature 98.91 [degF] Marvin Howard DO Work Phone: [facility] 12-23-2023 13:34-0500 Body weight 57.42 kg Marvin Howard DO Work Phone: [facility] 12-23-2023 13:34-0500 Diastolic blood pressure 70 mm[Hg] Marvin Howard DO Work Phone: [facility] 12-23-2023 13:34-0500 Heart rate 88 /min Marvin Howard DO Work Phone: [facility] 12-23-2023 13:34-0500 SaO2% (BldA) [Mass fraction] 99 % Marvin Howard DO Work Phone: [facility] 12-23-2023 13:34-0500 Systolic blood pressure 120 mm[Hg] Marvin Howard DO Work Phone: [facility] 09-25-2023 13:25-0500 Body temperature 98.29 [degF] Chair Kylah Work Phone: [facility] 09-25-2023 13:25-0500 Diastolic blood pressure 72 mm[Hg] Chair [place] Work Phone: [facility] 09-25-2023 13:25-0500 Heart rate 69 /min Chair [place] Work Phone: [facility] 09-25-2023 13:25-0500 Respiratory rate 16 /min Chair [place] Work Phone: [facility] 09-25-2023 13:25-0500 SaO2% (BldA) [Mass fraction] 99 % Chair Morales Work Phone: [facility] 09-25-2023 13:25-0500 Systolic blood pressure 102 mm[Hg] Chair Morales Work Phone: [facility] 07-23-2023 10:36-0400 Body weight 56.7 kg Tor Hernandez PRIVATE INVESTIGATOR.ENVIRONMENTAL PROJECTS ADVISOR Work Phone: [facility] 07-23-2023 10:36-0400 Diastolic blood pressure 62 mm[Hg] Tor Ellingtonler PRIVATE INVESTIGATOR.ENVIRONMENTAL PROJECTS ADVISOR Work Phone: [facility] 07-23-2023 10:36-0400 Heart rate 69 /min Tor Hernandez PRIVATE INVESTIGATOR.ENVIRONMENTAL PROJECTS ADVISOR Work Phone: [facility] 07-23-2023 10:36-0400 Systolic blood pressure 94 mm[Hg] Tor Ellingtonler PRIVATE INVESTIGATOR.ENVIRONMENTAL PROJECTS ADVISOR Work Phone: [facility] 02-12-2023 11:27-0400 Body height 167.[address] MD Work Phone: [facility] 02-12-2023 11:27-0400 Body weight 55.79 kg Janice Laen MD Work Phone: [facility] 02-12-2023 11:27-0400 Diastolic blood pressure 67 mm[Hg] Janice Lane MD Work Phone: [facility] 02-12-2023 11:27-0400 Heart rate 60 /min Janice Lane MD Work Phone: [facility] 02-12-2023 11:27-0400 SaO2% (BldA) [Mass fraction] 98 % Janice Lane MD Work Phone: [facility] 02-12-2023 11:27-0400 Systolic blood pressure 107 mm[Hg] Janice Lane MD Work Phone: [facility] 01-17-2023 10:49-0500 Body weight 56.52 kg Nesha Santana MD Work Phone: [facility] 01-17-2023 10:49-0500 Diastolic blood pressure 73 mm[Hg] Nesha Santana MD Work Phone: [facility] 01-17-2023 10:49-0500 Heart rate 113 /min Nesha Santana MD Work Phone: [facility] 01-17-2023 10:49-0500 Systolic blood pressure 111 mm[Hg] Nesha Santana MD Work Phone: [facility] 10-28-2022 00:35-0500 Body temperature 100.1 [degF] MD Janice Lane Work Phone: [facility] 10-28-2022 00:35-0500 Diastolic blood pressure 73 mm[Hg] MD Janice Lane Work Phone: [facility] 10-28-2022 00:35-0500 Heart rate 100 /min MD Janice Lane Work Phone: [facility] 10-28-2022 00:35-0500 SaO2% (BldA) [Mass fraction] 98 % MD Janice Lane Work Phone: [facility] 10-28-2022 00:35-0500 Systolic blood pressure 112 mm[Hg] MD Janice Lane Work Phone: [facility] 10-27-2022 23:30-0500 Respiratory rate 16 /min MD Janice Lane Work Phone: [facility] 10-27-2022 21:08-0500 Body height 167.[address] Work Phone: [facility] 10-27-2022 21:08-0500 Body weight 62.[address] Work Phone: [facility] 09-27-2022 13:45-0500 Body temperature 98.8 [degF] Chair Morales Work Phone: [facility] 09-27-2022 13:45-0500 Diastolic blood pressure 65 mm[Hg] Chair Kylah Work Phone: [facility] 09-27-2022 13:45-0500 Heart rate 101 /min Chair Kylah Work Phone: [facility] 09-27-2022 13:45-0500 Respiratory rate 16 /min Chair [place] Work Phone: [facility] 09-27-2022 13:45-0500 SaO2% (BldA) [Mass fraction] 99 % Chair [place] Work Phone: [facility] 09-27-2022 13:45-0500 Systolic blood pressure 101 mm[Hg] Chair Kylah Work Phone: [facility] 08-08-2022 07:54-0400 Body weight 61.42 kg Nesha Santana MD Work Phone: [facility] 08-08-2022 07:54-0400 Diastolic blood pressure 65 mm[Hg] Nesha Santana MD Work Phone: [facility] 08-08-2022 07:54-0400 Heart rate 82 /min Nesha Santana MD Work Phone: [facility] 08-08-2022 07:54-0400 Systolic blood pressure 106 mm[Hg] Nesha Santana MD Work Phone: [facility] 05-30-2022 14:00-0400 Diastolic blood pressure 55 mm[Hg] Deuce Rileya OTR/L Work Phone: [facility] 05-30-2022 14:00-0400 Systolic blood pressure 96 mm[Hg] Deuce Rileya OTR/L Work Phone: [facility] 04-25-2022 09:09-0400 Body height 168.9 cm Marshall Hanley MD, PhD Work Phone: [facility] 04-25-2022 09:09-0400 Body weight 62.6 kg Marshall Hanley MD, PhD Work Phone: [facility] 04-25-2022 09:09-0400 Diastolic blood pressure 62 mm[Hg] Marshall Hanley MD, PhD Work Phone: [facility] 04-25-2022 09:09-0400 Heart rate 106 /min Marshall Hanley MD, PhD Work Phone: [facility] 04-25-2022 09:09-0400 Systolic blood pressure 109 mm[Hg] Marshall Halney MD, PhD Work Phone: [facility] 04-02-2022 17:47-0400 Diastolic blood pressure 75 mm[Hg] DO Vishal Tupa Work Phone: [facility] 04-02-2022 17:47-0400 Heart rate 90 /min DO Vishal Tupa Work Phone: [facility] 04-02-2022 17:47-0400 Respiratory rate 18 /min DO Vishal Tupa Work Phone: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 fetus Clarke Hu DO Work Phone: Start: 08-10-2024 Urnls dip stick/tabl et rgnt non-auto w/o micrscp Clarke Mayte DO Work Phone: Start: 07-19-2024 Adult depression scr eening assessment Kenzie Mccall [facility] Start: 03-17-2024 Bilateral mammography M D Janice Lane Work Phone: Start: 03-17-2024 Ultrasonography of b ilateral breasts MD Janice Lane Work Phone: Start: 03-04-2024 End: 03-04-2024 Radex spine cervical 4 or [address] MD Work Phone: Start: 01-19-2024 Mri spinal canal tho racic w/o & w/contr matrl Tor Hernandez PRIVATE INVESTIGATOR.ENVIRONMENTAL PROJECTS ADVISOR Work Phone: Start: 12-23-2023 Urine test visual color cmprsn meths Marvin Howard DO Work Phone: Start: 12-23-2023 STATUS COVID-19/FLU Ant lucien Howard DO Work Phone: Start: 09-25-2023 Blood count complete auto&auto difrntl wbc Tor Hernandez APRN.ENVIRONMENTAL PROJECTS ADVISOR Work Phone: Start: 09-25-2023 HEP REMOTE PANEL [...] 04-02-2022 End: 04-02-2022 Trichomonas vaginalis detection DO Vishalzakiya Agarwal Work Phone: Start: 03-07-2021 Microscopic observat ion [Identifier] in Cervix by Cyto stain Mac 3 Start: 02-08-2021 Adult depression scr eening assessment Samer Garcia MD Work Phone: Start: 01-03-2021 Follow-up visit Start: 07-05-2020 Follow-up visit Start: 01-12-2020 Echocardiography Start: 01-05-2020 Echocardiography Karribee Jones SARS-CoV-2, Influenz a & RSV (PCR) MD Janice Lane Work Phone: Plan of Treatment Date Care Activity Detail Author Start: 2035 Zoster Vaccines (1 of 2) Zoste r Vaccines (1 of 2) [facility] Start: 01-16-2032 DTaP/Tdap/Td Vaccine s (2 - Td or Tdap) DTaP/Tdap/Td Vaccines (2 - Td or Tdap) [facility] Start: 01-16-2032 Urine microalbumin profile [facility] Start: 03-07-2026 PAP TESTING PAP TESTING [facility] Start: 03-07-2026 Screening for malign ant neoplasm of cervix [facility] Start: 07-20-2025 End: 07-20-2025 Patient encounter procedure 07/20/2025 12:00 PM EDT Office Visit [facility] [address] [place] [address] MD [address] [place] [address] physical [facility] Comment on above: physical Start: 07-19-2025 Anxiety Screening Anxiety Screening [facility] Start: 07-19-2025 Depression Screening Depression Scre ening [facility] Start: 11-18-2024 End: 11-18-2024 Patient encounter procedure 11/18/2024 1:00 PM EST Office Visit [facility] [address] [facility] [place], [place] [id number] Tor Hernandez, CYNTHIA.ENVIRONMENTAL PROJECTS ADVISOR [address] [place] [address] Return in about 6 months (around 11/2024). [facility] Comment on above: Return in about 6 mo nths (around 11/2024). Start: 10-26-2024 End: 10-26-2024 ambulatory 10/26/2024 11:00 AM EST [facility] [address] [place] [address] Germania Wilkinson MD [address] [place] [address] RLS (restless legs syndrome) Neurology Comment on above: RLS (restless legs s yndrome) Start: 10-18-2024 End: 10-18-2024 Specialty Pharmacy 10/18/2024 11:00 AM EST Specialty Pharmacy [facility] [place] [address] Pharmacist, Specialty[address] [address] refill - glatiramer --lvm 09/20 [facility] Comment on above: refill - glatiramer --lvm 09/20 Start: 10-12-2024 End: 10-12-2024 Patient encounter procedure 10/12/2024 11:30 AM EST Office Visit [facility] [address] [facility] [place] [id number] [place] [address] [place] [address] [facility] Start: 10-11-2024 End: 10-11-2024 ambulatory 10/11/2024 10:45 AM EST OT/PT/Speech Visit [facility] [address] [facility] [place] [address] Estrella Sorto, PT, DPT [address] [facility] [place] [address] 3 of 4 visits approved [facility] Comment on above: 3 of 4 visits approv ed Start: 10-05-2024 End: 10-05-2024 Patient encounter procedure 10/05/2024 2:30 PM EST Appointment [facility] [address] [place] [phone] [facility] Start: 10-04-2024 End: 10-04-2024 Patient encounter procedure 10/04/2024 1:40 PM EST Routine [facility] [address] [place] [address] Jahaira Byers PA [address] [place] [address] [facility] Start: 10-04-2024 End: 10-04-2024 Professional / ancillary services management 10/04/2024 1:00 PM EST Ancillary Procedure [facility] [address] [place] [address] [facility] Start: 10-04-2024 End: 10-04-2024 ambulatory 10/04/2024 9:15 AM EST OT/PT/Speech Visit [facility] [address] [place] [address] Estrella Sorto, PT, DPT [address] [place] [address] 2 of 4 visits approved [facility] Comment on above: 2 of 4 visits approv ed Start: 10-04-2024 End: 10-04-2024 Patient encounter procedure 10/04/2024 9:15 AM EST OT/PT/Speech Visit [facility] [address] [place] [address] Estrella Sorto, PT, DPT [address] [place] [address] hip pain and ms consult missed 08/23/24 [facility] Comment on above: hip pain and ms cons ult missed 08/23/24 Start: 09-27-2024 End: 09-27-2024 Patient encounter procedure 09/27/2024 2:30 PM EST Routine [facility] [address] [place] [address] Clarke Hu DO [address] [place] [address] Arrived [facility] Comment on above: Arrived Start: 09-22-2024 End: 09-22-2024 Nutrition therapy 09/22/2024 8:45 AM EST [facility] [address] [place] [address] Protein shakes covered with my ins & best flavor. Nutrition Therapy Comment on above: Protein shakes cover ed with my ins & best flavor. Start: 09-21-2024 End: 09-21-2024 ambulatory 09/21/2024 9:45 AM EST OT/PT/Speech Visit [facility] [address] [place] [address] Estrella Sorto, PT, DPT [address] [place] [address] 1 of 4 visits approved [facility] Comment on above: 1 of 4 visits approv ed Start: 09-21-2024 End: 09-21-2024 Patient encounter procedure 09/21/2024 9:45 AM EST OT/PT/Speech Visit [facility] [address] [place] [address] Estrella Sorto, PT, DPT [address] [place] [address] hip pain and ms consult missed 08/23/24 [facility] Comment on above: hip pain and ms cons ult missed 08/23/24 Start: 09-20-2024 End: 09-20-2024 Specialty Pharmacy 09/20/2024 11:00 AM EST Specialty Pharmacy [facility] [address] [place] [address] Drive [address] [place] [address] Pharmacist, Specialty[facility]3 [address] [place] [address] [place] [address] refill - glatiramer -- [facility] Comment on above: refill - glatiramer -- Start: 09-14-2024 End: 09-14-2024 Patient encounter procedure 09/14/2024 2:45 PM EST Appointment [facility] [address] [place] [address] [facility] Start: 09-07-2024 End: 09-07-2025 US Pelvis transvaginal US OB transvaginal Imaging Routine Encounter for screening for cervical length Expected: 09/07/2024 (Approximate), Expires: 09/07/2025 [facility] Work Phone: Comment on above: Expected: 09/07/2024 (Approximate), Expires: 09/07/2025 Start: 09-07-2024 End: 09-07-2024 Patient encounter procedure [facility] Comment on above: Arrived Start: 09-03-2024 End: 09-03-2024 Patient encounter procedure 09/03/2024 8:45 AM EDT OT/PT/Speech Visit [facility] [address] [place] [address] Estrella Sorto, PT, DPT [address] [place] [address] hip pain and ms consult missed 08/23/24 [facility] Comment on above: hip pain and ms cons ult missed 08/23/24 Start: 09-01-2024 RSV Vaccine (1 - Ris k 1-dose series) RSV Vaccine (1 - Risk 1-dose series) [facility] Start: 08-30-2024 End: 08-30-2024 Patient encounter procedure 08/30/2024 3:00 PM EDT Office Visit [facility] [address] [place] [address] Art Swenson S, OD [address] [place] [address] Huge eye buggar.Eyes get tired.Eye lashes fallout Ophthalmology Comment on above: Huge eye buggar.Eyes get tired.Eye lashes fallout Start: 08-24-2024 End: 08-24-2024 Patient encounter procedure 08/24/2024 9:40 AM EDT Routine [facility] [address] [place] [phone] Jahaira Byers PA [address] [place] [address] [facility] Start: 08-24-2024 End: 08-24-2024 Professional / ancillary services management 08/24/2024 9:00 AM EDT Ancillary Procedure [facility] [address] [place] [phone] [facility] Start: 08-23-2024 End: 08-23-2024 ambulatory 08/23/2024 11:30 AM EDT OT/PT/Speech Visit [facility] [address] [place], [place] [id number] Renetta Bhagat PT [address] [address] [place], [place] [id number] Right hip pain [M25.551] [facility] Comment on above: Right hip pain [M25. 551] Start: 08-16-2024 End: 08-16-2024 Specialty Pharmacy 08/16/2024 11:00 AM EDT Specialty Pharmacy [facility] [address] [place] [id number] Pharmacist, [facility] [address] [place] [address] [place] [address] refill - glatiramer -- [facility] Comment on above: refill - glatiramer -- Start: 07-20-2024 End: 07-20-2024 Follow-up encounter 07/20/2024 11:00 AM EDT [facility] [address] [facility] [place] [address] Germania Wilkinson MD [address] [place] [address] Follow up Neurology Comment on above: Follow up Start: 07-19-2024 End: 10-18-2024 CBC W Auto Differential panel - Blood [facility] Comment on above: Expected: 07/19/2024 , Expires: 10/18/2024 Start: 07-19-2024 End: 10-18-2024 Comprehensive metabolic 2000 panel - Serum or Plasma [facility] Comment on above: Expected: 07/19/2024 , Expires: 10/18/2024 Start: 07-19-2024 End: 10-18-2024 Ferritin [Mass/volume] in Serum or Plasma [facility] Comment on above: Expected: 07/19/2024 , Expires: 10/18/2024 Start: 07-19-2024 End: 07-19-2024 Patient encounter procedure [facility] Comment on above: 1 year physical refill - glatiramer -- Start: 07-11-2024 Covid-19 Vaccine ( season) Covid-19 Vaccine ( season) [facility] Start: 07-11-2024 Covid-19 Vaccine ( season) Covid-19 Vaccine ( season) [facility] Start: 07-11-2024 Influenza vaccination Influenza Vacc ine (#1) [facility] Start: 07-01-2024 End: 07-01-2024 Patient encounter procedure [facility] Comment on above: Return in about 6 mo nths (around 06/24/2024). Snoring [R06.83] Start: 06-25-2024 End: 06-25-2024 Specialty Pharmacy 06/25/2024 11:00 AM EDT Specialty Pharmacy [facility] [address] [place] [address] Drive [address] [place] [address] Pharmacist, [facility] [address] [place] [address] [place] [address] refill - glatiramer -- lvm 06/22 [facility] Comment on above: refill - glatiramer -- lvm 06/22 Start: 06-23-2024 End: 06-23-2024 Patient encounter procedure 06/23/2024 8:00 AM EDT Office Visit Neurology [address] [place] [address] ACTIGRAPHY Neurology Comment on above: ACTIGRAPHY Start: 06-22-2024 End: 06-22-2024 Specialty Pharmacy 06/22/2024 11:00 AM EDT Specialty Pharmacy [facility] [address]Advance [address] [place] [address] Pharmacist, [place] [address] [place] [address] refill - glatiramer -- [facility] Comment on above: refill - glatiramer -- Start: 06-08-2024 End: 06-08-2024 ambulatory 06/08/2024 1:00 PM EDT [facility] [address] [place] [address] Germania Wilkinson MD [address] [place] [address] INSOMN[facility] Neurology Comment on above: INSOMNIA Start: 06-08-2024 End: 06-08-2024 Patient encounter procedure 06/08/2024 1:00 PM EDT Office Visit Neurology [address] [place] [address] Germania Wilkinson MD [address] [place] [address] INSOMNIA Neurology Comment on above: INSOMNIA Start: 05-25-2024 End: 05-25-2024 Patient encounter procedure 05/25/2024 8:00 AM EDT Office Visit Neurology [address] [place] [address] ACTIGRAPHY Neurology Comment on above: ACTIGRAPHY Start: 05-24-2024 End: 05-24-2024 Specialty Pharmacy 05/24/2024 11:00 AM EDT Specialty Pharmacy [facility] [address] [address] Pharmacist, [facility] [address] [place] [address] [place] [address] refill - glatiramer -- [facility] Comment on above: refill - glatiramer -- Start: 05-19-2024 End: 05-19-2024 Patient encounter procedure 05/19/2024 10:00 AM EDT Office Visit [facility] [address] [address] Clarke Hu, DO [address] [place] [address] [facility] Start: 04-30-2024 End: 04-30-2024 Specialty Pharmacy 04/30/2024 11:00 AM EDT Specialty Pharmacy [facility] [address] [place] [address] Pharmacist, [facility] [address] [place] [address] [place] [address] refill--glatiramer [facility] Comment on above: refill--glatiramer Start: 04-21-2024 End: 04-21-2024 Patient encounter procedure 04/21/2024 8:00 AM EDT Office Visit [facility] [address] [facility] [place] [id number] ACTIGRAPHY Neurology Comment on above: ACTIGRAPHY Start: 03-30-2024 End: 03-30-2024 ambulatory 03/30/2024 1:45 PM EDT [facility] Ed [address] [address] Tor Hernandez APRN.ENVIRONMENTAL PROJECTS ADVISOR [address] [place] [address] What medicine to take during or off of [facility] Comment on above: What medicine to raúl e during or off of Start: 03-26-2024 End: 03-26-2024 ambulatory 03/26/2024 9:40 AM EDT [facility] Hematology/Oncology [address] [place] [address] Kylah, Chair [address] [place] [address] MATY Hematology/Oncology Comment on above: OCREVUS Start: 03-22-2024 End: 03-22-2024 ambulatory 03/22/2024 2:30 PM EDT [facility]rology [address] [place] [address] Ayan Marie APRN.ENVIRONMENTAL PROJECTS ADVISOR [address] [place] [address] F/U Neurology Comment on above: F/U Start: 03-08-2024 End: 03-08-2024 Patient encounter procedure 03/08/2024 8:00 AM EDT Office Visit Neurology [address] [place] [address] ACTIGRAPHY Neurology Comment on above: ACTIGRAPHY Start: 03-07-2024 Screening for malign ant neoplasm of cervix [facility] Start: 03-04-2024 End: 06-03-2024 JOSSELIN BY IFA WITH REFLEX [facility] Comment on above: Expected: 03/04/2024 , Expires: 06/03/2024 Start: 03-04-2024 End: 06-03-2024 C reactive protein [Mass/volume] in Serum or Plasma [facility] Comment on above: Expected: 03/04/2024 , Expires: 06/03/2024 Start: 03-04-2024 End: 06-03-2024 Ferritin [Mass/volume] in Serum or Plasma [facility] Comment on above: Expected: 03/04/2024 , Expires: 06/03/2024 Start: 03-04-2024 End: 06-03-2024 Iron and Iron binding capacity panel - Serum or Plasma [facility] Comment on above: Expected: 03/04/2024 , Expires: 06/03/2024 Start: 03-04-2024 End: 06-03-2024 Rheumatoid factor [Units/volume] in Serum or Plasma [facility] Comment on above: Expected: 03/04/2024 , Expires: 06/03/2024 Start: 03-04-2024 End: 06-03-2024 Urate [Mass/volume] in Serum or Plasma [facility] Comment on above: Expected: 03/04/2024 , Expires: 06/03/2024 Start: 02-24-2024 [facility] Start: 12-11-2023 End: 08-21-2024 Mri brain brain stem w/o w/contrast material MRI BRAIN WO/W IVCON Radiology Routine Multiple sclerosis (HCC) Expected: 12/11/2023 (Approximate), Expires: 08/21/2024 [facility] Work Phone: Comment on above: Expected: 12/11/2023 (Approximate), Expires: 08/21/2024 Start: 11-10-2023 Behavioral Health Screening Behavioral Health Screening [facility] Start: 11-10-2023 Depression Assessment Depression Ass essment [facility] Start: 10-25-2023 End: 01-24-2024 CBC W Auto Differential panel - Blood CBC + DIFF Lab Routine Other drug-induced neutropenia (HCC) Expected: 10/25/2023 (Approximate), Expires: 01/24/2024 [facility] Work Phone: Comment on above: Expected: 10/25/2023 (Approximate), Expires: 01/24/2024 Start: 09-25-2023 End: 12-25-2023 CD19 ABSOLUTE COUNT [facility] Work Phone: Comment on above: Expected: 09/25/2023 , Expires: 12/25/2023 Start: 09-23-2023 End: 12-23-2023 Choriogonadotropin.beta subunit [Units/volume] in Serum or Plasma HCG QUANTITATIVE Lab Routine Multiple sclerosis (HCC) Expected: 09/23/2023, Expires: 12/23/2023 [facility] Work Phone: Comment on above: Expected: 09/23/2023 , Expires: 12/23/2023 Start: 09-23-2023 End: 12-23-2023 IgG [Mass/volume] in Serum or Plasma IGG Lab Routine Multiple sclerosis ([facility]) Expected: 09/23/2023, Expires: 12/23/2023 [facility] Work Phone: Comment on above: Expected: 09/23/2023 , Expires: 12/23/2023 Start: 09-23-2023 End: 12-23-2023 IgM [Mass/volume] in Serum or Plasma IGM Lab Routine Multiple sclerosis ([facility]) Expected: 09/23/2023, Expires: 12/23/2023 [facility] Work Phone: Comment on above: Expected: 09/23/2023 , Expires: 12/23/2023 Start: 07-11-2023 Covid-19 Vaccine () Covid-19 Vaccine () [facility] Start: 07-11-2023 Influenza vaccination [facility] Start: 02-12-2023 End: 04-14-2023 CBC W Auto Differential panel - Blood [facility] Work Phone: Comment on above: Expected: 02/12/2023 , Expires: 04/14/2023 Start: 02-12-2023 End: 04-14-2023 Ferritin [Mass/volume] in Serum or Plasma [facility] Work Phone: Comment on above: Expected: 02/12/2023 , Expires: 04/14/2023 Start: 02-12-2023 End: 02-26-2023 Influenza virus A and B RNA and SARS-CoV-2 (COVID-19) N gene panel - Respiratory specimen by DEIRDRE with probe detection [facility] Work Phone: Comment on above: Expected: 02/12/2023 , Expires: 02/26/2023 Start: 02-12-2023 End: 04-14-2023 Iron and Iron binding capacity panel - Serum or Plasma [facility] Work Phone: Comment on above: Expected: 02/12/2023 , Expires: 04/14/2023 Start: 02-12-2023 End: 02-13-2024 PELVIC US WHI PELVIC US WHI Anc Imaging Routine Vaginal bleeding Expected: 02/12/2023, Expires: 02/13/2024 [facility] Work Phone: Comment on above: Expected: 02/12/2023 , Expires: 02/13/2024 Start: 02-05-2023 End: 12-07-2023 Mri brain brain stem w/o w/contrast material MRI BRAIN WO/W IVCON Radiology Routine Multiple sclerosis (HCC) Expected: 02/05/2023 (Approximate), Expires: 12/07/2023 [facility] Work Phone: Comment on above: Expected: 02/05/2023 (Approximate), Expires: 12/07/2023 Start: 02-05-2023 End: 12-07-2023 Mri spinal canal cervical w/o & w/contr matrl MRI CERVICAL SPINE WO/W IVCON Radiology Routine Multiple sclerosis (HCC) Expected: 02/05/2023 (Approximate), Expires: 12/07/2023 [facility] Work Phone: Comment on above: Expected: 02/05/2023 (Approximate), Expires: 12/07/2023 Start: 01-17-2023 End: 03-19-2023 25-hydroxyvitamin D3 [Mass/volume] in Serum or Plasma [facility] Work Phone: Comment on above: Expected: 01/17/2023 , Expires: 03/19/2023 Start: 01-17-2023 End: 03-19-2023 Cobalamin (Vitamin B12) [Mass/volume] in Serum or Plasma [facility] Work Phone: Comment on above: Expected: 01/17/2023 , Expires: 03/19/2023 Start: 01-17-2023 End: 03-19-2023 IgG [Mass/volume] in Serum or Plasma [facility] Work Phone: Comment on above: Expected: 01/17/2023 , Expires: 03/19/2023 Start: 01-17-2023 End: 03-19-2023 IgM [Mass/volume] in Serum or Plasma [facility] Work Phone: Comment on above: Expected: 01/17/2023 , Expires: 03/19/2023 Start: 01-17-2023 End: 03-19-2023 Thyrotropin [Units/volume] in Serum or Plasma [facility] Work Phone: Comment on above: Expected: 01/17/2023 , Expires: 03/19/2023 Start: 11-10-2022 DEPRESSION ASSESSMENT DEPRESSION ASS ESSMENT [facility] Start: 10-27-2022 Plain chest X-ray XR chest 1V portab [facility] Start: 10-27-2022 XR Chest Single view [facility] Start: 07-11-2022 Influenza vaccination C [facility] Start: 04-25-2022 End: 06-25-2022 Bacteria identified in Urine by Culture [facility] Work Phone: Comment on above: Expected: 04/25/2022 , Expires: 06/25/2022 Start: 04-24-2022 End: 06-24-2022 25-hydroxyvitamin D3 [Mass/volume] in Serum or Plasma VITAMIN D 25 HYDROXY Lab Routine Vitamin D deficiency Expected: 04/24/2022, Expires: 06/24/2022 [facility] Work Phone: Comment on above: Expected: 04/24/2022 , Expires: 06/24/2022 Start: 04-24-2022 End: 06-24-2022 Comprehensive metabolic 2000 panel - Serum or Plasma COMP METABOLIC PANEL Lab Routine Multiple sclerosis (HCC) Expected: 04/24/2022, Expires: 06/24/2022 [facility] Work Phone: Comment on above: Expected: 04/24/2022 , Expires: 06/24/2022 Start: 04-24-2022 End: 06-24-2022 IgG [Mass/volume] in Serum or Plasma IGG Lab Routine Multiple sclerosis (HCC) Expected: 04/24/2022, Expires: 06/24/2022 [facility] Work Phone: Comment on above: Expected: 04/24/2022 , Expires: 06/24/2022 Start: 04-24-2022 End: 06-24-2022 IgM [Mass/volume] in Serum or Plasma IGM Lab Routine Multiple sclerosis ([facility]) Expected: 04/24/2022, Expires: 06/24/2022 [facility] Work Phone: Comment on above: Expected: 04/24/2022 , Expires: 06/24/2022 Start: 04-24-2022 End: 06-24-2022 VARICELLA ZOSTER IGG VARICELLA ZOSTER IGG Lab Routine Multiple sclerosis ([facility]) Expected: 04/24/2022, Expires: 06/24/2022 [facility] Work Phone: Comment on above: Expected: 04/24/2022 , Expires: 06/24/2022 Start: 02-08-2022 Adult depression screening assessment DEPRESSION SCREENING [facility] Start: 11-10-2021 DEPRESSION ASSESSMENT DEPRESSION ASS ESSMENT [facility] Start: 01-05-2020 Echocardiography Echocardiogram [facility] ardiology[facility] [address] Work Phone: Start: 2015 HPV TESTING HPV TESTING [facility] Start: 2015 Screening for malign ant neoplasm of cervix HPV Testing [facility] Start: 2006 Screening for malign ant neoplasm of cervix HPV/Cotest [facility] Start: 2004 Hepatitis B Vaccines (1 of 3 - 19+ 3-dose series) Hepatitis B Vaccines (1 of 3 - 19+ 3-dose series) [facility] Start: 2003 Anxiety Screening Anxiety Screening [facility] Start: 2003 Depression Screening Depression Scre ening [facility] Start: 1998 Varicella vaccination Varicell a Vaccines (1 of 2 - 13+ 2-dose series) [facility] Start: 1990 COVID-19 VACCINE (#1) COVID-19 VACCI NE (#1) [facility] Start: 1990 COVID-19 VACCINE (1) COVID-19 VACCIN E (1) [facility] Start: 1986 MMR Vaccines (1 of 1 - Standard series) MMR Vaccines (1 of 1 - Standard series) [facility] Start: 02-01-1986 COVID-19 VACCINE (#1) COVID-19 VACCI NE (#1) [facility] Start: 1985 Annual wellness visit Medicare Initial Physical (IPPE) [facility] Start: 1985 HEPATITIS B (1 of 3 - 3-dose series) HEPATITIS B (1 of 3 - 3-dose series) [facility] Start: 1985 Lipid panel Lipid Panel [facility] Start: 1985 Medicare Annual Well ness Visit Medicare Annual Wellness Visit (AWV) [facility] 25-hydroxyvitamin D3 [Mass/volume] in Serum or Plasma VITAMIN D 25 HYDROXY Lab Routine Vitamin D deficiency 04/25/2022 11:12 AM EDT [facility] Work Phone: Bacteria identified in Genital specimen by Aerobe culture [facility] Work Phone: Comprehensive metabo lic 2000 panel - Serum or Plasma COMP METABOLIC PANEL Lab Routine Multiple sclerosis ([facility]) 04/25/2022 11:12 AM EDT [facility] Work Phone: ECG COMPLETE ECG COMPLETE ECG Routine Vasovagal syncope Ordered: 07/19/2024 [facility] Work Phone: Comment on above: Ordered: 07/19/2024 End: 04-25-2023 EPIL EEG ROUTINE EPIL EEG ROUTINE NEUROLOGY Routine Multiple sclerosis ([facility]) 1 Occurrences starting 04/25/2022 until 04/25/2023 [facility] Work Phone: Comment on above: 1 Occurrences starti ng 04/25/2022 until 04/25/2023 Glucose measurement estimated from glycated hemoglobin [facility] End: 06-08-2025 HOME SLEEP APNEA TEST (HSAT) HOME SLEEP APNEA TEST (HSAT) Procedures Routine Snoring Chronic insomnia Malaise and fatigue At risk for obstructive sleep apnea 1 Occurrences starting 06/08/2024 until 06/08/2025 [facility] Work Phone: Comment on above: 1 Occurrences starti ng 06/08/2024 until 06/08/2025 IgG [Mass/volume] in Serum or Plasma IGG Lab Routine Multiple sclerosis (HCC) 04/25/2022 11:12 AM EDT [facility] Work Phone: IgM [Mass/volume] in Serum or Plasma IGM Lab Routine Multiple sclerosis (HCC) 04/25/2022 11:12 AM EDT [facility] Work Phone: End: 01-23-2025 MR Thoracic spine WO and W contrast IV MRI THORACIC SPINE WO/W IVCON Radiology Routine Multiple sclerosis (HCC) 1 Occurrences starting 12/25/2023 until 01/23/2025 [facility] Work Phone: Comment on above: 1 Occurrences starti ng 12/25/2023 until 01/23/2025 OT PLAN OF CARE CERTIFICATION OT PLAN OF CARE CERTIFICATION Procedures Routine Multiple sclerosis (HCC) Abnormal antibody titer Neurogenic bladder Lack of coordination Ordered: 05/30/2022 [facility] Work Phone: Comment on above: Ordered: 05/30/2022 Patient Education [facility] Work Phone: Patient referral [facility] Work Phone: PT PLAN OF CARE CERTIFICATION PT PLAN OF CARE CERTIFICATION Procedures Routine Abnormality of gait Multiple sclerosis (HCC) Ordered: 07/22/2022 [facility] Work Phone: Comment on above: Ordered: 07/22/2022 SPEECH PLAN OF CARE CERTIFICATION SPEECH PLAN OF CARE CERTIFICATION Procedures Routine Multiple sclerosis (HCC) Cognitive communication deficit Ordered: 05/30/2022 [facility] Work Phone: Comment on above: Ordered: 05/30/2022 SPEECH PLAN OF CARE CERTIFICATION SPEECH PLAN OF CARE CERTIFICATION Procedures Routine Cognitive communication deficit Ordered: 07/22/2022 [facility] Work Phone: Comment on above: Ordered: 07/22/2022 US for US OB follow UP transabdominal approach Imaging Routine Encounter for supervision of normal , unspecified, unspecified trimester 09/17/2024 3:04 PM [facility] Service Area Work Phone: VARICELLA ZOSTER IGG VARICELLA Z YARELIS IGG Lab Routine Multiple sclerosis (HCC) 04/25/2022 11:12 AM EDT [facility] Work Phone: End: 04-03-2025 XR Cervical spine AP and Lateral and oblique XR CERV OTHER 4V AP/LAT/OBL Radiology Routine Neck pain 1 Occurrences starting 03/04/2024 until 04/03/2025 [facility] Work Phone: Comment on above: 1 Occurrences starti ng 03/04/2024 until 04/03/2025 XR Cervical spine AP and Lateral and oblique XR CERV OTHER 4V AP/LAT/OBL Radiology Routine Neck pain 03/04/2024 2:13 PM EDT [facility] End: 04-03-2025 XR Lumbar spine 3 Views XR LUMBAR GENERAL 3V AP/LAT/L5-S1 Radiology Routine Chronic midline low back pain without sciatica 1 Occurrences starting 03/04/2024 until 04/03/2025 [facility] Comment on above: 1 Occurrences starti ng 03/04/2024 until 04/03/2025 XR Lumbar spine 3 Views XR LUMBA R GENERAL 3V AP/LAT/L5-S1 Radiology Routine Chronic midline low back pain without sciatica 03/04/2024 2:12 PM EDT [facility] [address] Work Phone: [facility] NEGATED: Highlighted row has been ruled out! Planned Goals not documented [facility] [address] Work Phone: Immunizations Immunization Date Immunization Notes Care Provider Jacob bush 11-20-2023 influenza, injectabl e, quadrivalent, preservative free Kenzie Mccall [facility] 11-20-2023 influenza virus vaccine, unspecified formulation Kenzie Mccall [facility] 01-15-2022 tetanus toxoid, redu minor diphtheria toxoid, and acellular pertussis vaccine, adsorbed Nidia Garcia MD Work Phone: [facility] Payers Date Payer Category Payer Self-pay [id number] 2023 Medicare (Managed Care) [id number]. [id number] 2023 Private Health Insurance [id number] 2022 Unknown [id number] 2021 Medicare [employer] BY [facility] SNP [id number] 2021-Present [phone] [address] [place] [address] O [id number] 2021 Medicare [id number] .[id number] 2020 Private Health Insurance [id number] 2020 Medicaid MEDICAID [facility] MEDICAID [id number] 2020-Present [phone] [address] [place] [address] Medicaid [id number] 2020 Medicaid [id number]. [id number] .[id number] 2020 Medicaid [id number] 1985 Unknown [id number] 2.16.840.1.537660.3.579.2.7 32 1985 Unknown [id number] 2.16.840.1.706901.3.579.2.1 245 1985 Unknown [id number] 2.16.840.1.287590.3.579.2.1 245 1985 Unknown [id number] 2.16.840.1.243578.3.579.2.1 245 1985 Unknown [id number] 2.16.840.1.153562.3.579.2.1 245 1985 Unknown [id number] 2.16.840.1.352549.3.579.2.1 245 1985 Unknown [id number] 2.16.840.1.277676.3.579.2.1 245 1985 Unknown [id number] 2.16.840.1.982561.3.579.2.1 245 1985 Unknown [id number] 2.16.840.1.877395.3.579.2.1 259 1985 Unknown [id number] 2.16.840.1.693663.3.579.2.1 259 1985 Unknown [id number] 2.16.840.1.177611.3.579.2.1 259 1985 Unknown [id number] 2.16.840.1.515622.3.579.2.1 259 1985 Unknown [id number] 2.16.840.1.903687.3.579.2.1 259 1985 Unknown [id number] 2.16.840.1.933139.3.579.2.1 259 1985 Unknown [id number] 2.16.840.1.100225.3.579.2.1 259 1985 Unknown [id number] 2.16.840.1.351336.3.579.2.1 259 1985 Unknown [id number] 2.16.840.1.266136.3.579.2.1 259 1985 Unknown [id number] 2.16.840.1.995946.3.579.2.1 259 1985 Unknown [id number] 2.16.840.1.491496.3.579.2.1 259 1985 Unknown [id number] 2.16.840.1.897980.3.579.2.1 259 1985 Unknown [id number] 2.16.840.1.164903.3.579.2.1 259 1985 Unknown [id number] 2.16.840.1.404854.3.579.2.1 259 1985 Unknown [id number] 2.16.840.1.265225.3.579.2.1 259 1985 Unknown [id number] 2.16.840.1.281959.3.579.2.1 259 1985 Unknown [id number] 2.16.840.1.719366.3.579.2.1 259 1985 Unknown [id number] 2.16.840.1.877609.3.579.2.1 259 1985 Unknown [id number] 2.16.840.1.235018.3.579.2.1 259 1985 Unknown [id number] 2.16.840.1.391360.3.579.2.1 259 1985 Unknown [id number] 2.16.840.1.460577.3.579.2.1 259 1985 Unknown [id number] 2.16.840.1.590146.3.579.2.1 259 Medicaid [id number] Medicare [id number] Unknown [id number] 2.16.840.1.942706.3.579.2.5 31 Unknown [id number] 2.16.840.1.015491.3.579.2.5 31 Unknown [id number] 2.16.840.1.917157.3.579.2.5 31 Unknown [id number] 2.16.840.1.948214.3.579.2.5 31 Social History Date Type Detail [facility] Start: 1985 Sex Assigned At Female C [facility] Start: 11-15-2019 End: 07-17-2023 Tobacco smoking status NHIS Never smoked tobacco [facility] Start: 11-15-2019 End: 07-17-2023 Tobacco use and exposure Smokeless tobacco non-user [facility] Start: 01-15-2022 End: 08-30-2024 Alcohol intake Ex-drinker (finding) [facility] Start: 11-15-2019 History SDOH Alcohol Comment occas [facility] Start: 03-16-2022 End: 09-17-2024 Exposure to SARS-CoV-2 (event) Not sure [facility] Start: 04-25-2022 Education 17 [facility] Start: 12-16-2022 History SDOH Alcohol Frequency 1 [facility] Start: 12-16-2022 History SDOH Alcohol Std Drinks 0 [facility] Start: 12-16-2022 History SDOH Social Connections Phone 4 [facility] Start: 12-16-2022 History SDOH Social Connections Membership 2 [facility] Start: 12-16-2022 History SDOH Social Connections Living 7 [facility] Start: 12-16-2022 History SDOH Physica l Activity MPS 3 [facility] Start: 12-16-2022 History SDOH Stress 5 [facility] Start: 12-16-2022 End: 07-17-2023 History of Social function [facility] Start: 12-16-2022 End: 07-17-2023 Social connection and isolation panel [facility] Do you belong to any clubs or organizations such as gnosticism groups, unions, fraternal or athletic groups, or school groups? No [facility] Are you now , , , , never or living with a partner? Never [facility] How often to you hav e a drink containing alcohol? Never [facility] How many standard drinks containing alcohol do you have on a typical day? Patient does not drink [facility] How hard is it for y ou to pay for the very basics like food, housing, medical care, and heating Somewhat hard [facility] Do you feel stress - tense, restless, nervous, or anxious, or unable to sleep at night because your mind is troubled all the time - these days [OSQ] Very much [facility] (I/We) worried wheth er (my/our) food would run out before (I/we) got money to buy more. Often true [facility] Start: 12-23-2020 Gender identity Identifies as female gender (finding) [facility] Start: 12-23-2020 Sexual orientation Heterosexual (brandin whalen) [facility] History of tobacco use Passive smoker [facility] Start: 12-11-2023 End: 09-21-2024 Alcohol intake Lifetime non-drinker (finding) [facility] Start: 02-04-2024 [facility] NEGATED: Highlighted row - - [facility] [address] Work Phone: Goals Date Patient Goal Desired Activity /State Personal health goal Personal health goal Personal health goal Functional Status Date Assessment Result Facility NEGATED: Highlighted row Functional performance Functional status health issues are not documented Disease [facility] [address] Work Phone: Mental Status Date Assessment Result Facility NEGATED: Highlighted row Cognitive function [Interpretation] Cognitive status health issues are not documented Disease [facility] 23[address] Work Phone: Clinical Notes 04-17-2021 to 09-22-2024 Estella Dutton, RD - 09/22/2024 8:[address], PT, DPT - 09/21/2024 10:[address] PT, DPT - 09/21/2024 9:39 AM Kenzie Bess RP - 09/20/2024 10:23 AM EST Note Date & Type Note Facility 09-22-2024 History of Present illness Narrative [facility] Nutrition Therapy: Virtual Consult - Initial Assessment I have communicated my name and active licensure. The patient s identity and physical location were verified at the time of this visit. 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 Nutrition Diagnosis: Inadequate protein-energy intake, related to lack of appetite and difficulty preparing meals, as evidenced by weight loss during . RECOMMENDED MALNUTRITION DIAGNOSIS: NO MALNUTRITION IDENTIFIED NUTRITION CARE PLAN Nutrition Intervention 09/22/2024: Modify type and amount of food at meals and snacks - Will submit ONS script to DME. Goal would be 2 Ensure shakes per day. - Utilize high calorie snack ideas for weight gain - Increase fluid intake as able Nutrition Monitoring & Evaluation: weight, PO intake Need for Follow up: PRN Patient presents for an initial nutrition consult with PMH of multiple sclerosis. Pt has been having episodes where she gets very lightheaded and dizzy during , so her OB suggested the need for protein shakes and electrolytes. She is due in 1 month. She reports she lost a lot of weight with her first , and got down to 100 lbs. 2 weeks ago, she was 138 lbs and is now 130 lbs. She states she doesn't eat a lot and has issues with constipation. She struggles to drink enough fluids due to bladder issues. Her normal weight when not is around 125 lbs. Pt does prefer vegan type foods, so struggles to get enough protein. Diet recall reveals inadequate protein energy intake due to small portion sizes. 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 Resting Metabolic Rate: 1309 Malnutrition Screening Significant unintentional weight loss? No Eating less than 75% of usual intake for more than 2 weeks? No Potential Signs of Inflammation: hypoalbuminemia Education Materials Provided: None this visit READINESS TO LEARN Cognitive ability: Alert and oriented Motivation to learn: Interested Family support: Unable to assess - Family not present Instruction provided to: Patient Patient learns best by: Multiple Methods Factors affecting learning: None Physical limitations affecting learning: None Referred by: David TRIPP Billing Type: Initial Assess/15 min 2 units SIGNATURE: Estella Dutton RD PATIENT NAME: Carol Ann Martinez DATE: 09/22/2024 TIME: 8:41 AM documented in this encounter [facility] 09-21-2024 History of Present illness Narrative Program_ID:[id number] Access Code: [email or web address] URL: [email or web address] Date: 09-21-2024 Prepared By: Estrella Sorto Program Notes Exercises - Seated Hip Adduction Isometrics with Ball - 1-3 x daily - 7 x weekly - 2-3 sets - 10 reps - Seated Hip Abduction with Resistance - 1-3 x daily - 7 x weekly - 2-3 sets - 10 reps - Supine Heel Slide with Strap - 1 x daily - 7 x weekly - 2 sets - 10 reps Episode Visit Count: 2 Therapist That Will Accept/Oversee The Plan Of Care: Estrella Sorto Start of Care Date: 09/03/24 Onset Date: 03/12/24 Plan of Care Certification Date: 09/03/24 Next Certification Due Date: 11/02/24 Patient Identified by Name and Date of : Yes REHABILITATION AND SPORTS THERAPY PHYSICAL THERAPY TREATMENT NOTE ASSESSMENT: Carol Ann Martinez tolerated the session with expected muscle soreness and no issues. She demonstrated difficulty with NM quad and hip flexor control through heel slides and requires min PT assist to complete full ROM. Continues to exhibit limitations through LE strength, with promotion of muscle activation throughout exercise, with tendency for compensations or assistance required. The patient will continue to benefit from ongoing skilled physical therapy to progress toward set goals. PLAN FOR NEXT VISIT: Progress Note. Continue with hip strength and ROM as tolerated and within precautions. SUBJECTIVE: Carol Ann reports feeling good this date and her right hip pain has decreased since starting the exercises and going to the chiropractor. Reports that her and baby are doing well and she is scheduled to give on . Pain: Pain Pain Level: 2 Pain Location: Hip - Right Description: Aching OBJECTIVE MEASURES WITH LEVEL OF FUNCTION: Posture / Alignment Posture: Forward head, Increased lumbar lordosis Hip Observations R Hip Palpation Tenderness: No tenderness noted Gait Gait Observation: Moderate antalgia, decreased weight bearing through R LE, decreased step length, and increased lateral sway R, WBOS TREATMENT: Therapeutic Exercise: 1: seated hip ABD c ball 2x10 2: seated hip ABD c YTB 2x10 3: *heel slide 2x10 with PT assist 4: seated stepper level 1.5 x 6' (1:1 discussion through current functional status) 5: trialed kneel hip flexor stretch, but held due to limited benefit Skilled Intervention: Patient was educated in proper exercise technique and purpose for exercises. Reviewed and educated patient on additions/changes for home exercise program as above (*). Skilled judgment was used in selection of appropriate interventions. Correct performance of therapeutic exercises was facilitated with verbal cuing. Self-Mcc Management: 1: discussed importance of focus through muscle activation through exercises vs relying on assistance Skilled Intervention: Skilled judgment in the selection of proper modification for activity of daily living/home management based on clinical presentation, deficits, and needs. Billing Therapeutic Exercise Treatment Minutes: 35 Self-Care/Home Management Treatment Minutes: 5 Skilled Treatment Time Minutes (timed and untimed codes): 40 Total Session Time (minutes): 40 Session Start Time : 0940 Session Stop Time : 1020 AUREA Masterson Supervising therapist was present and guided the care of the patient for the entire session on this date. All documentation was reviewed and agreed upon. Estrella Sorto PT, DPT documented in this encounter [facility] 09-21-2024 Note HNO ID: [id number] Author: ESTRELLA SORTO PT, DPT Service: ? Author Type: Physical Therapist Type: Progress Notes Filed: 09/21/2024 11:27 Note Text: Episode Visit Count: 2 Therapist That Will Accept/Oversee The Plan Of Care: Estrella Sorto Start of Care Date: 09/03/24 Onset Date: 03/12/24 Plan of Care Certification Date: 09/03/24 Next Certification Due Date: 11/02/24 Patient Identified by Name and Date of : Yes REHABILITATION AND SPORTS THERAPY PHYSICAL THERAPY TREATMENT NOTE ASSESSMENT: Carol Ann Martinez tolerated the session with expected muscle soreness and no issues. She demonstrated difficulty with NM quad and hip flexor control through heel slides and requires min PT assist to complete full ROM. Continues to exhibit limitations through LE strength, with promotion of muscle activation throughout exercise, with tendency for compensations or assistance required. The patient will continue to benefit from ongoing skilled physical therapy to progress toward set goals. PLAN FOR NEXT VISIT: Progress Note. Continue with hip strength and ROM as tolerated and within precautions. SUBJECTIVE: Carol Ann reports feeling good this date and her right hip pain has decreased since starting the exercises and going to the chiropractor. Reports that her and baby are doing well and she is scheduled to give on . Pain: Pain Pain Level: 2 Pain Location: Hip - Right Description: Aching OBJECTIVE MEASURES WITH LEVEL OF FUNCTION: Posture / Alignment Posture: Forward head, Increased lumbar lordosis Hip Observations R Hip Palpation Tenderness: No tenderness noted Gait Gait Observation: Moderate antalgia, decreased weight bearing through R LE, decreased step length, and increased lateral sway R, WBOS TREATMENT: Therapeutic Exercise: 1: seated hip ABD c ball 2x10 2: seated hip ABD c YTB 2x10 3: *heel slide 2x10 with PT assist 4: seated stepper level 1.5 x 6' (1:1 discussion through current functional status) 5: trialed kneel hip flexor stretch, but held due to limited benefit Skilled Intervention: Patient was educated in proper exercise technique and purpose for exercises. Reviewed and educated patient on additions/changes for home exercise program as above (*). Skilled judgment was used in selection of appropriate interventions. Correct performance of therapeutic exercises was facilitated with verbal cuing. Self-Mcc Management: 1: discussed importance of focus through muscle activation through exercises vs relying on assistance Skilled Intervention: Skilled judgment in the selection of proper modification for activity of daily living/home management based on clinical presentation, deficits, and needs. Billing Therapeutic Exercise Treatment Minutes: 35 Self-Care/Home Management Treatment Minutes: 5 Skilled Treatment Time Minutes (timed and untimed codes): 40 Total Session Time (minutes): 40 Session Start Time : 0940 Session Stop Time : 1020 AUREA Masterson Supervising therapist was present and guided the care of the patient for the entire session on this date. All documentation was reviewed and agreed upon. Estrella Sorto, PT, DPT [facility] 09-20-2024 Note HNO ID: [id number] Author: IBAN LAZO, PhD Service: ? Author Type: Psychologist Type: Progress Notes Filed: 09/20/2024 14:26 Note Text: Behavioral Sleep Medicine Follow up Iban Lazo, PhD I have communicated my name and active licensure. The patient's identity and physical location were verified at the time of this visit. 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 Contact Method: Zoom Patient Confirmed [address]: [address] [place] [address] Patient Confirmed Telephone #: [phone] Time: 40 minutes Individual Psychotherapy Session # 5 TREATMENT MODALITIES: CBTI Motivational Interviewing SUBJECTIVE/OBJECTIVE: Patient update: Has been feeling stressed preparing for her baby boy who is due in October - has not been receiving help from her home health aide in the ways she would like. She has some friends that might be able to step in and help her. Pt reported that sleep has felt the same- Average recent sleep parameters - averaging 5 hours recently, every once in a while she gets 8 hours of sleep. Continues to use Unisom nightly. Has not yet discussed use of melatonin or magnesium during and post with providers - she sees Dr. Hu tomorrow and I encouraged her to ask about this. Pt's due date is October 27 - discussed that she plans to breast feed for 3-6 months and [facility] We discussed that we could possibly implement melatonin use if approved by her doctors but this is TBD. Otherwise, we discussed that we will have to wait until her baby is sleeping more soundly through the night to reinitiate BSM strategies like sleep restriction and stimulus control. Pt indicated that Flor historically worked for her sleep and she would be interested to resume this after she finishes breast feeding if it is indicated. Update on medication use: Unisom Behavioral changes made since last session: tracked sleep on 4 nights Pt completed 4 nights of sleep diaries since last visit. Sleep Diary Nap(min) In bed Try sleep KATERIN(min) #Wake WASO(min) Awake Out of bed Quality TIB TST SE 08/16/2024 60 22:30 22:40 60 1 6 09:45 09:48 2 11.13 9.98 90 09/02/2024 0 23:25 00:25 60 1 120 09:06 09:15 2 8.83 5.68 64 09/20/2024 0 22:25 22:50 360 1 360 10:25 10:40 2 11.83 -0.42 -4 0 23:05 23:35 65 1 0 10:00 10:20 2 10.75 9.33 87 ASSESSMENT: CRICKET: Insomnia Severity Index Total Score: 28 [22-28 = Clinical insomnia (severe)] 05/23/2024 07/08/2024 09/02/2024 Insomnia Severity Index Score 25 27 28 PHQ: not completed today PHQ-9 Score: 12 [10-14 = Moderate Depression] not at all on item #9 04/13/2024 05/23/2024 07/08/2024 PHQ-9 Score 19 12 12 ABHILASH: ABHILASH-7 Total Score: 10 [10-14 = Moderate Anxiety] 03/19/2024 04/13/2024 09/02/2024 ABHILASH - 7 SCORES Score 13 13 10 DIAGNOSIS: Chronic Insomnia Adjustment disorder with mixed anxiety and depressed mood Trauma and stressor-related disorder RLS Multiple sclerosis PROGRESS TO DATE: Instructor Dancing Progress: Condition at intake Short Term Condition: Condition at intake GOALS/OBJECTIVES/INTERVENTIONS: updated as necessary on September 20, 2024 1. Continue with CBTI 2. Track sleep, medication use, and anything that may have impacted sleep (+/-) on sleep logs. 3. Engage in stimulus control (e.g., out of bed if not asleep for 20-30+ minutes, engage in a pleasant activity until feel sleepy again, only go to bed when sleepy) 4. Engage in the following recommendations: Maintain consistent bed/wake time Utilize bright light therapy in AM for 30-60 minutes 5. Follow up with BSM on 10/12 at 2 PM 11/15/24 6. Advised pt to consult with Dr. Hu her OB doctor regarding use of melatonin during and post . Iban Lazo, PhD, Psychologist ([place] license [id number]) [facility] 09-20-2024 History of Present illness Narrative [facility] Refill Assessment Medication(s): glatiramer Currently , due ~ 10/22/24 Feels OK no missed doses Patient's current medication list and adherence status [...] been reviewed prior to dispensing the medication. Ldr Nurse Assessment Patient confirmed: Yes Med/dose confirmed: Yes Supplies needed: No supplies needed Missed doses: No Estimated days supply on hand: 1 Delivery method: FedEx Signature required: No Delivery address: [address] [place] [address] [address] Delivery date: 09/22/24 Questions or concerns for the pharmacist?: Yes Patient questions/concerns: Medication dose, Delivery Did you have any side effects believed to be related to this medication, that resulted in hospitalization?: No Current Outpatient Medications on File Prior to Visit Medication Sig methylPREDNISolone (MEDROL DOSE-PACK) 4 mg Dose-Pack Day 1: 6 tablets Day 2: 5 tablets Day 3: 4 tablets Day 4: 3 tablets Day 5: 2 tablets Day 6: 1 tablet mometasone (ELOCON) 0.1 % cream Apply to [...] shampoo 2-3 times weekly as body wash vitamin B complex with C-FA-CU-ZN renal vitamins (DIATX ZN) 5-1.5-25 mg tab Take by mouth every 24 hours. FERROUS SULFATE ORAL Take by mouth every 24 hours. multivitamin with minerals (MULTIPLE VITAMIN-MINERALS) tablet Take 1 tablet by mouth every 24 hours. ketoconazole (NIZORAL) 2 % cream Apply to affected area once daily. Apply qd tiZANidine (ZANAFLEX) 2 mg tablet Take 1 tablet by mouth every 8 hours as needed. VITAMIN B COMPLEX ORAL Take by mouth. fluticasone (FLONASE) 50 mcg/actuation nasal spray Use 1 [place] in each nostril once daily. No current facility-administered medications on file prior to visit. [facility] CLINICAL ASSESSMENT - NEUROLOGY V7: Assessment to use: Refill Assessment of injection issues or necrosis at injection sites: Yes Screening for infection: Yes Drug specific assessments, as appropriate: Yes Current medication list (including drug interaction assessment): Yes Experience of adverse reactions to the medication: Yes Date of influenza vaccination reminder: 07/21/2024 Date of most recent vaccination assessment: 07/21/2024 Treatment Plan Information: Date of onset: 03/2007 Date of diagnosis of MS: 03/2007 Disease course at onset: Relapsing-Remitting Current disease course: Progressive without relapses Previous disease therapies: - Betaseron [id number] - Copaxone 4173-6895 - Tysabri 2009-Summer 2019 (stopped due to planned ) - Copaxone 7189-4974 (during ) - Ocrevus (02/28/21 through 09/25/23, d/c'd for ) Current disease therapy: Copaxone (03/2024-present) Copazone/Glatopa/glatiramer Refrigerated, take out 30- 45 minutes before injection. Can be left at controlled room temp for up to one month (59-86 deg F) Daily, or three times weekly injections at least 48 hr apart. Injection site reaction, also injection flushing DDI none pertinent Vaccines reviewed Est. Tx Plan Start Date: No information available Estimated Start Date Info: No information available Est. Estimated Treatment Duration: No information available Kenzie Mccall RPh documented in this encounter [facility] 09-20-2024 Note HNO ID: [id number] Author: KENZIE MCCALL RPh Service: ? Author Type: Pharmacist Type: Progress Notes Filed: 09/20/2024 14:41 Note Text: [facility] Refill Assessment Medication(s): glatiramer Currently , due ~ 10/22/24 Feels OK no missed doses Patient's current medication list and adherence status [...] been reviewed prior to dispensing the medication. Ldr Nurse Assessment Patient confirmed: Yes Med/dose confirmed: Yes Supplies needed: No supplies needed Missed doses: No Estimated days supply on hand: 1 Delivery method: FedEx Signature required: No Delivery address: [address] [place] [address] [address] Delivery date: 09/22/24 Questions or concerns for the pharmacist?: Yes Patient questions/concerns: Medication dose, Delivery Did you have any side effects believed to be related to this medication, that resulted in hospitalization?: No Current Outpatient Medications on File Prior to Visit Medication Sig methylPREDNISolone (MEDROL DOSE-PACK) 4 mg Dose-Pack Day 1: 6 tablets Day 2: 5 tablets Day 3: 4 tablets Day 4: 3 tablets Day 5: 2 tablets Day 6: 1 tablet mometasone (ELOCON) 0.1 % cream Apply to [...] shampoo 2-3 times weekly as body wash vitamin B complex with C-FA-CU-ZN renal vitamins (DIATX ZN) 5-1.5-25 mg tab Take by mouth every 24 hours. FERROUS SULFATE ORAL Take by mouth every 24 hours. multivitamin with minerals (MULTIPLE VITAMIN-MINERALS) tablet Take 1 tablet by mouth every 24 hours. ketoconazole (NIZORAL) 2 % cream Apply to affected area once daily. Apply qd tiZANidine (ZANAFLEX) 2 mg tablet Take 1 tablet by mouth every 8 hours as needed. VITAMIN B COMPLEX ORAL Take by mouth. fluticasone (FLONASE) 50 mcg/actuation nasal spray Use 1 [place] in each nostril once daily. No current facility-administered medications on file prior to visit. [facility] CLINICAL ASSESSMENT - NEUROLOGY V7: Assessment to use: Refill Assessment of injection issues or necrosis at injection sites: Yes Screening for infection: Yes Drug specific assessments, as appropriate: Yes Current medication list (including drug interaction assessment): Yes Experience of adverse reactions to the medication: Yes Date of influenza vaccination reminder: 07/21/2024 Date of most recent vaccination assessment: 07/21/2024 Treatment Plan Information: Date of onset: 03/2007 Date of diagnosis of MS: 03/2007 Disease course at onset: Relapsing-Remitting Current disease course: Progressive without relapses Previous disease therapies: - Betaseron [id number] - Copaxone 7684-2316 - Tysabri 2009-Summer 2019 (stopped due to planned ) - Copaxone 8066-6118 (during ) - Ocrevus (02/28/21 through 09/25/23, d/c'd for ) Current disease therapy: Copaxone (03/2024-present) Copazone/Glatopa/glatiramer Refrigerated, take out 30- 45 minutes before injection. Can be left at controlled room temp for up to one month (59-86 deg F) Daily, or three times weekly injections at least 48 hr apart. Injection site reaction, also injection flushing DDI none pertinent Vaccines reviewed Est. Tx Plan Start Date: No information available Estimated Start Date Info: No information available Est. Estimated Treatment Duration: No information available Kenzie Mccall [facility] 09-03-2024 History of Present illness Narrative Program_ID:[id number] Access Code: [email or web address] URL: [email or web address] Date: 09-03-2024 Prepared By: Estrella Sorto Program Notes Exercises - Seated Hip Adduction Isometrics with Ball - 1-3 x daily - 7 x weekly - 2-3 sets - 10 reps - Seated Hip Abduction with Resistance - 1-3 x daily - 7 x weekly - 2-3 sets - 10 reps Images from the original note were not included. Episode Visit Count: 1 Therapist That Will Accept/Oversee The Plan Of Care: Estrella Sorto Start of Care Date: 09/03/24 Onset Date: 03/12/24 Plan of Care Certification Date: 09/03/24 Next Certification Due Date: 11/02/24 Patient Identified by Name and Date of : Yes REHABILITATION AND SPORTS THERAPY PHYSICAL THERAPY EVALUATION PLAN OF CARE: Assessment: Carol Ann Martinez presents with chief complaint of R hip pain that interferes with walking, walking in the house, standing, weight bearing . The patient presents with impairments in gait, independence in exercise, range of motion, sensation, and strength. PROMIS (Patient-Reported Outcomes Measurement Information System) scores were reviewed and identified as a rehabilitation concern. Prognosis for therapy is Fair due to: clinical presentation, limited tolerance to activity . Pt is restricted in activity through pelvic rest at this time, so discussed reviewing restrictions with OBGYN physician in regards to walking and PT exercises and encouraged pt to complete within allowance of restrictions. Discussed potential benefits of pelvic PT, particularly from a standpoint, and discussing with referring provider to determine appropriateness. The patient will benefit from skilled therapy services to meet the goals established for this plan of care as noted below. Patient's symptoms are predicted to improve appropriately with physical therapy. Pt presents with personal factors/comorbidities that may affect expected progress. Patient demonstrates moderate disability/functional limitations based on functional outcome measure score. Evaluation required moderate decision making skills. Goals for Episode of Care: established 09/03/24 [place] in home exercise program. Patient will decrease pain rating by 2 points to meet minimal clinical important difference for numeric pain rating scale. Patient will demonstrate increase in bilateral LE strength to 4+/5 during manual muscle testing in order to improve function for basic self-care tasks, leisure / recreation skills, and light functional tasks. Pt will report being able to walk for at least 5-10 minutes with pain <2/10 to improve tolerance through ambulation. Patient Goals: Help with hip pain and get stronger Time Frame for Goals and Treatment : 10/29/24 Planned Interventions, Frequency, and Duration: Current Frequency: 1x every other week Duration: 8 weeks Total Number of Visits Planned: 4 Planned Treatment Interventions: Therapeutic exercise (22501), Neuromuscular re-education (12100), Manual therapy (43743), Therapeutic activities (78222), Self-usp management (12801), Gait Training (29040), Patient/Family/Caregiver Education PLAN FOR NEXT VISIT: Continue with hip strength as tolerated, introduce PPT. Patient demonstrates good understanding of plan of care and treatment. The above goals and plan of care were discussed and agreed upon by patient/family. SUBJECTIVE: Pt presents with R hip pain that onset 2 months into her current pregancy (due date 10/27/24). She has a diagnosis of MS and experiences pain throughout her whole body. Numbness and tinging in all extremities due to MS. Pt describes hip pain as sharp through weightbearing and walking. She is currently on pelvic rest and only on her feet for limited time. Patient Goals: Help with hip pain and get stronger Functional Limitations: walking, walking in the house, standing, weight bearing Prior Level of Function: Independent without limitations Relevant History Past Relevant Medical Conditions: Multiple Sclerosis Employment: Unemployed Recreation / Current Exercise: denies Hobbies / Interests: denies Intake Information: Prescription present Previous Treatment: None Falls Interview: Fall without injury in the last year Pain: Pain Pain Level: 4 Pain Location: Hip - Right Description: Aching, Shooting Frequency: Continuous, With movement Post Treatment Pain Post Treatment Pain Level: No Change PROMIS Scales 09/02/2024 07/22/2022 05/27/2022 Higher is Better Phys Func - Score 36 (moderate dysfunction) 34 (moderate dysfunction) 35 (moderate dysfunction) Phys Func - Percentile 8 5 7 Self-Eff Symptom - Score 40 (Average) 34 (Low) 34 (Low) Self-Eff Symptom - Percentile 16 5 5 T-scores: mean of general population = 50. 5 points is clinically meaningfully difference Percentiles provide an indication of how the patient's score ranks in relation to the general population. Higher percentile rankings indicate better function/quality of life. 50th percentile is the average of the general population and indicates half of respondents had a worse score. OBJECTIVE MEASURES WITH LEVEL OF FUNCTION: Hip Observations R Hip Palpation Tenderness: Greater trochanter LE PROM R LE PROM: WFL L LE PROM : WFL LE Strength R Hip Extension: 3/5 R Hip Flexion (L2): 3/5 R Hip ABduction: 3/5 R Hip ADduction: 3/5 R Knee Extension (L3): 3-/5 R Knee Flexion: 3-/5 R Ankle Dorsiflexion (L4): 3/5 L Hip Extension: 3+/5 L Hip Flexion (L2): 3+/5 L Hip ABduction: 3+/5 L Hip ADduction: 3+/5 L Knee Extension (L3): 3+/5 L Knee Flexion: 3+/5 L Ankle Dorsiflexion (L4): 3+/5 Gait Gait Observation: Moderate antalgia, decreased weight bearing through R LE, decreased step length, and increased lateral sway R, WBOS Education: Education Learning Preferences: Demonstration, Explanation, Performance, Printed Materials Barriers: None Learning/educational needs: Plan of Care, Home exercise program Education Provided: Yes, see treatment interventions for education provided Education Provided To: Patient Education Mode/Type: Demonstration, Explanation/Discussion, Literature/Printed Materials, Performance, Teach Back Response to Education/Teach Back: States/Identifies, Return Demonstration TREATMENT: PT Treatment Interventions: Therapeutic Exercise, Self-Mcc Management Evaluation Evaluation Therapeutic Exercise: 1: *seated hip ABD c ball x10 2: *seated hip ABD c YTB x10 Skilled Intervention: Patient was educated in proper exercise technique and purpose for exercises. Reviewed and educated patient on additions/changes for home exercise program as above (*). Skilled judgment was used in selection of appropriate interventions. Provided written instruction for home exercise program to facilitate proper performance and compliance. Correct performance of therapeutic exercises was facilitated with verbal and tactile cuing. Education in use of heat and parameters for each. Self-Mcc Management: 1: educated through diagnosis, prognosis, plan of care and HEP 2: Educated and discussed hormonal changes through and impact it may have on functioning and anatomy 3: Discussed importance of walking program and HEP within parameters of pelvic rest restrictions 4: reviewed pelvic floor PT and discussing with provider to determine if appopriate for 5: Discussed use of heat and parameters as needed for pain management Skilled Intervention: Skilled judgment in the selection of proper modification for activity of daily living/home management based on clinical presentation, deficits, and needs. Billing * Evaluation Moderate Complexity: 1 Unit Therapeutic Exercise Treatment Minutes: 7 Self-Care/Home Management Treatment Minutes: 18 Skilled Treatment Time Minutes (timed and untimed codes): 42 Total Session Time (minutes): 42 Session Start Time : 841 Session Stop Time : 923 AUREA Masterson Supervising therapist was present and guided the care of the patient for the entire session on this date. All documentation was reviewed and agreed upon. Estrella Sorto PT, DPT documented in this encounter [facility] 09-03-2024 Note HNO ID: [id number] Author: ESTRELLA SORTO PT, DPT Service: ? Author Type: Physical Therapist Type: Progress Notes Filed: 09/03/2024 11:26 Note Text: Episode Visit Count: 1 Therapist That Will Accept/Oversee The Plan Of Care: Estrella Sorto Start of Care Date: 09/03/24 Onset Date: 03/12/24 Plan of Care Certification Date: 09/03/24 Next Certification Due Date: 11/02/24 Patient Identified by Name and Date of : Yes REHABILITATION AND SPORTS THERAPY PHYSICAL THERAPY EVALUATION PLAN OF CARE: Assessment: Carol Ann Martinez presents with chief complaint of R hip pain that interferes with walking, walking in the house, standing, weight bearing . The patient presents with impairments in gait, independence in exercise, range of motion, sensation, and strength. PROMIS? (Patient-Reported Outcomes Measurement Information System) scores were reviewed and identified as a rehabilitation concern. Prognosis for therapy is Fair due to: clinical presentation, limited tolerance to activity . Pt is restricted in activity through pelvic rest at this time, so discussed reviewing restrictions with OBGYN physician in regards to walking and PT exercises and encouraged pt to complete within allowance of restrictions. Discussed potential benefits of pelvic PT, particularly from a standpoint, and discussing with referring provider to determine appropriateness. The patient will benefit from skilled therapy services to meet the goals established for this plan of care as noted below. Patient's symptoms are predicted to improve appropriately with physical therapy. Pt presents with personal factors/comorbidities that may affect expected progress. Patient demonstrates moderate disability/functional limitations based on functional outcome measure score. Evaluation required moderate decision making skills. Goals for Episode of Care: established 09/03/24 [place] in home exercise program. Patient will decrease pain rating by 2 points to meet minimal clinical important difference for numeric pain rating scale. Patient will demonstrate increase in bilateral LE strength to 4+/5 during manual muscle testing in order to improve function for basic self-care tasks, leisure / recreation skills, and light functional tasks. Pt will report being able to walk for at least 5-10 minutes with pain <2/10 to improve tolerance through ambulation. Patient Goals: Help with hip pain and get stronger Time Frame for Goals and Treatment : 10/29/24 Planned Interventions, Frequency, and Duration: Current Frequency: 1x every other week Duration: 8 weeks Total Number of Visits Planned: 4 Planned Treatment Interventions: Therapeutic exercise (03958), Neuromuscular re-education (19070), Manual therapy (80763), Therapeutic activities (84946), Self-usp management (46175), Gait Training (79890), Patient/Family/Caregiver Education PLAN FOR NEXT VISIT: Continue with hip strength as tolerated, introduce PPT. Patient demonstrates good understanding of plan of care and treatment. The above goals and plan of care were discussed and agreed upon by patient/family. SUBJECTIVE: Pt presents with R hip pain that onset 2 months into her current pregancy (due date 10/27/24). She has a diagnosis of MS and experiences pain throughout her whole body. Numbness and tinging in all extremities due to MS. Pt describes hip pain as sharp through weightbearing and walking. She is currently on pelvic rest and only on her feet for limited time. Patient Goals: Help with hip pain and get stronger Functional Limitations: walking, walking in the house, standing, weight bearing Prior Level of Function: Independent without limitations Relevant History Past Relevant Medical Conditions: Multiple Sclerosis Employment: Unemployed Recreation / Current Exercise: denies Hobbies / Interests: denies Intake Information: Prescription present Previous Treatment: None Falls Interview: Fall without injury in the last year Pain: Pain Pain Level: 4 Pain Location: Hip - Right Description: Aching, Shooting Frequency: Continuous, With movement Post Treatment Pain Post Treatment Pain Level: No Change PROMIS Scales 09/02/2024 07/22/2022 05/27/2022 Higher is Better Phys Func - Score 36 (moderate dysfunction) 34 (moderate dysfunction) 35 (moderate dysfunction) Phys Func - Percentile 8 5 7 Self-Eff Symptom - Score 40 (Average) 34 (Low) 34 (Low) Self-Eff Symptom - Percentile 16 5 5 T-scores: mean of general population = 50. 5 points is clinically meaningfully difference Percentiles provide an indication of how the patient's score ranks in relation to the general population. Higher percentile rankings indicate better function/quality of life. 50th percentile is the average of the general population and indicates half of respondents had a worse score. OBJECTIVE MEASURES WITH LEVEL OF FUNCTION: Hip Observations R Hip Pa (more content not included)... [facility] 09-02-2024 Telephone encounter Note Duplicate message Closing this encounter [facility] 09-02-2024 Miscellaneous Notes Duplicate message Closing this encounter documented in this encounter [facility] 08-30-2024 Note HNO ID: [id number] Author: ART SWENSON OD Service: ? Author Type: LINUX ADMIN Type: Progress Notes Filed: 08/30/2024 16:40 Note Text: ASSESSMENT/PLAN: 1. Squamous blepharitis of upper and lower eyelids of both eyes - ICD9: 373.02, ICD10: H01.02A, H01.02B (primary diagnosis) No keratitis or conjunctivitis Pt ed Gentle warm compresses ans scrubs Frequent Artificial Tears 2. 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 Multiple sclerosis (HCC) - ICD9: 340, ICD10: G35 Multiple bouts of Optic Neuritis, primarily on the Left since 2006 but severe episode Right eye in ~2019 with poor vision recovery No known flare ups since the 2019 event. +++Pt to return to clinic for Comprehensive exam with Dilated fundus exam OU and 30-2 (Left eye ONLY) after her +++ August 30, 2024 4:35 PM [facility] 08-30-2024 History of Present illness Narrative ASSESSMENT/PLAN: 1. Squamous blepharitis of upper and lower eyelids of both eyes - ICD9: 373.02, ICD10: H01.02A, H01.02B (primary diagnosis) No keratitis or conjunctivitis Pt ed Gentle warm compresses ans scrubs Frequent Artificial Tears 2. 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 Multiple sclerosis (HCC) - ICD9: 340, ICD10: G35 Multiple bouts of Optic Neuritis, primarily on the Left since 2006 but severe episode Right eye in ~2019 with poor vision recovery No known flare ups since the 2019 event. +++Pt to return to clinic for Comprehensive exam with Dilated fundus exam OU and 30-2 (Left eye ONLY) after her +++ August 30, 2024 4:35 PM documented in this encounter [facility] 08-26-2024 History of Present illness Narrative Images from the original note were not included. HPI: Historian of HPI: patient Carol Ann Martinez is a 39 y.o. female who presents today to the Urgent Care with the following complaints and denials which have been present for 2 day(s) pt states she is 30 weeks . Pt denies any V/D/N. Pt states she is having right side body pain as well. C/O Denies Symptom Comments [x] [] Runny Nose Green nasal discharge [] [x] Difficulty Swallowing [] [x] Sore Throat [x] [] Cough [x] [] Ear Pain Left ear pressure [] [x] Fever [] [x] Chills [x] [] Nasal Congestion [] [x] Myalgia [] [x] Sinus Pain [] [x] Sinus Pressure Additional Comments: pt has not taken any OTC medications Current Outpatient Medications on File Prior to Visit Medication Sig Dispense Refill B Complex-C (b complex-vitamin c) tablet Take 1 tablet by mouth in the morning. cholecalciferol (Vitamin D3) 1.25 MG (19042 UT) tablet Take 1.25 mg by mouth once a week clotrimazole-betamethasone (Lotrisone) cream Apply 1 application topically Daily Apply to affected area daily for 7 days 45 g 0 ergocalciferol (Vitamin D-2) 1.25 MG (07665 UT) capsule Take 50,000 Units by mouth once a week. Ferrous Sulfate (IRON PO) Take 1 tablet by mouth in the morning. magnesium oxide (Mag-Ox) 400 MG tablet Take 1 tablet by mouth at bedtime. methylPREDNISolone (Medrol Dospak) 4 MG tablets Day 1: 6 tablets Day 2: 5 tablets Day 3: 4 tablets Day 4: 3 tablets Day 5: 2 tablets Day 6: 1 tablet 21 tablet 0 mometasone (Elocon) 0.1 % cream Apply topically Daily Tzslrjya-Sfc-Jf-FA (Jenliva /) 1 MG capsule Take by mouth Vit-Fe Fumarate-FA (M-Blake Plus) 27-1 MG tablet Take 1 tablet by mouth Daily Please dispense what insurance approves. 30 tablet 11 cetirizine (ZyrTEC) 10 MG tablet Take 1 tablet (10 mg) by mouth in the morning. 30 tablet 0 glatiramer (Copaxone,Glatopa) 20 MG/ML solution prefilled syringe Inject 20 mg under the skin in the morning. [DISCONTINUED] Multiple Vitamin (multivitamin) tablet Take 1 tablet by mouth in the morning. [DISCONTINUED] Vit-Fe Fumarate-FA ( Plus/Iron) 27-1 MG tablet Take 1 tablet by mouth Daily Please dispense what insurance approves. 30 tablet 11 No current facility-administered medications on file prior to visit. Allergies Allergen Reactions Gluten Meal Hives, Itching [...] constipated More constipated More constipated More constipated Social History Tobacco Use Smoking status: Never Smokeless tobacco: Never Substance Use Topics Alcohol use: Never Drug use: Never Family History Problem Relation Name Age of Onset Prostate cancer Father Multiple sclerosis Sister Diabetes Paternal Grandmother Kaitlin Martinez Alzheimer's disease Paternal Grandmother Kaitlin Martinez Prostate cancer Paternal Grandfather Past Medical History: Diagnosis Date Abnormal Pap smear of cervix 2007 Bacterial vaginosis 2018 Hypocalcemia Hypoglycemia Low iron MS (multiple sclerosis) ([facility]) Urinary incontinence 2008 Past Surgical History: Procedure Laterality Date CERVICAL BIOPSY W/ LOOP ELECTRODE EXCISION 2007 COLONOSCOPY 2007 and 2017 COLPOSCOPY 2007 & 2017 DILATION AND CURETTAGE OF UTERUS 2023 WISDOM TOOTH EXTRACTION Visit Vitals BP 122/70 (BP Location: Left arm, Patient Position: Sitting, BP Cuff Size: Large adult) Pulse 102 Temp 98 F Wt 140 lb LMP 02/09/2024 SpO2 98% BMI 22.26 kg/m OB Status Smoking Status Never BSA 1.73 m ROS: A complete system ROS was performed and negative aside from the pertinent positives noted in the HPI and PE. Physical Exam Constitutional: General: She is not in acute distress. Appearance: Normal appearance. She is well-developed. Comments: HENT: Head: Normocephalic and atraumatic. Right Ear: Ear canal normal. A middle ear effusion is present. Tympanic membrane is erythematous. Left Ear: Tympanic membrane and ear canal normal. Nose: Congestion present. Right Turbinates: Swollen. Left Turbinates: Swollen. Mouth/Throat: Mouth: Mucous membranes are moist. Pharynx: Posterior oropharyngeal erythema (Mild) present. Eyes: General: No scleral icterus. Conjunctiva/sclera: Conjunctivae normal. Cardiovascular: Rate and Rhythm: Normal rate and regular rhythm. Heart sounds: Normal heart sounds. No murmur heard. Pulmonary: Effort: Pulmonary effort is normal. No respiratory distress. Breath sounds: Normal breath sounds. No wheezing, rhonchi or rales. Lymphadenopathy: Cervical: Cervical adenopathy present. Skin: General: Skin is warm and dry. Neurological: General: No focal deficit present. Mental Status: She is alert and oriented to person, place, and time. Psychiatric: Mood and Affect: Mood normal. Behavior: Behavior normal. Assessment/Plan Diagnoses and all orders for this visit: Acute right otitis media - amoxicillin (Amoxil) 875 MG tablet; Take 1 tablet (875 mg) by mouth in the morning and 1 tablet (875 mg) before bedtime. Do all this for 10 days. Start the above as directed. Reviewed potential s/e with patient. Encouraged probiotic while on antibiotic. Increase water intake, get plenty of rest. Follow up with PCP if no improvement in one week. Upper respiratory tract infection, unspecified type See above. BALDOMERO ShepherdC documented in this encounter [facility] 08-24-2024 History of Present illness Narrative Reason for Appointment: Patient ID: Carol Ann Martinez is a 39 y.o. female who presents for No chief complaint on file. Patient presents today for Return OB appointment. MEDICATIONS Current Outpatient Medications Medication Instructions B Complex-C (b complex-vitamin c) tablet 1 tablet, Daily RT cetirizine (ZYRTEC) 10 mg, Oral, Daily cholecalciferol (VITAMIN D3) 1.25 mg, Weekly clotrimazole-betamethasone (Lotrisone) cream 1 application , Topical, Daily, Apply to affected area daily for 7 days ergocalciferol (VITAMIN D-2) 50,000 Units, Weekly Ferrous Sulfate (IRON PO) 1 tablet, Daily RT glatiramer (COPAXONE,GLATOPA) 20 mg, Daily RT magnesium oxide (Mag-Ox) 400 MG tablet 1 tablet, Nightly methylPREDNISolone (Medrol Dospak) 4 MG tablets Day 1: 6 tablets Day 2: 5 tablets Day 3: 4 tablets Day 4: 3 tablets Day 5: 2 tablets Day 6: 1 tablet mometasone (Elocon) 0.1 % cream Daily RT Ezlzjmts-Xcg-Le-FA (Jenliva /) 1 MG capsule Take by mouth ALLERGIES Allergies Allergen Reactions Gluten Meal Hives, [...] Pap smear of cervix 2007 Bacterial vaginosis 2019 Hypocalcemia Hypoglycemia Low iron MS (multiple sclerosis) ([facility]) Urinary incontinence 2009 HISTORY PAST MEDICAL HISTORY SOCIAL HISTORY Past Medical History: Diagnosis Date Abnormal Pap smear of cervix 2007 Bacterial vaginosis 2019 Hypocalcemia Hypoglycemia Low iron MS (multiple sclerosis) ([facility]) Urinary incontinence 2009 Social History [...] Exam Constitutional: Appearance: Normal appearance. She is well-developed and normal weight. HENT: Head: Normocephalic. Cardiovascular: Rate and Rhythm: Normal rate and regular rhythm. Pulses: Normal pulses. Pulmonary: Effort: Pulmonary effort is normal. Breath sounds: Normal breath sounds. Abdominal: General: Bowel sounds are normal. There is no distension. Palpations: Abdomen is soft. Tenderness: There is no abdominal tenderness. There is no guarding or rebound. Musculoskeletal: General: No swelling. Normal range of motion. Right lower leg: No edema. Left lower leg: No edema. Neurological: General: No focal deficit present. Mental Status: She is alert and oriented to person, place, and time. Skin: General: Skin is warm and dry. Psychiatric: Mood and Affect: Mood normal. Behavior: Behavior normal. Thought Content: Thought content normal. Judgment: Judgment normal. Vitals and nursing note reviewed. Exam conducted with a relay adjuster present. Vitals: Estimated body mass index is 21.96 kg/m as calculated from the following: Height as of 09/18/23: 5' 6.5 . Weight as of this encounter: 138 lb 1.9 oz. BP: 120/70 Patient's last menstrual period was 02/09/2024. ASSESSMENT & PLAN ICD-10-CM 1. 30 weeks gestation of Z3A.30 POCT urinalysis dipstick manually resulted 2. Third trimester Z34.93 POCT urinalysis dipstick manually resulted 3. MS (multiple sclerosis) ([facility]) G35 methylPREDNISolone (Medrol Dospak) 4 MG tablets Return OB: Patient presents today for a routine obstetrics appointment. Patient is currently 30w6d . Patient states she is doing well but has complaints of being tired due to current . Patient has verbalizes frequent movement. labor precautions was discussed/given and patient was instructed to perform kick counts three times a day. Patient limping and having right hip pain. Pt has history of MS, we will send in medrol dose aubire to help alleviate inflammation, stretched were discussed as well as getting a belly band. Pt verblaized understanding Orders Placed This Encounter Procedures POCT urinalysis dipstick manually resulted Follow Up: Patient is to return to office in 2 week for routine OB appointment. Documented by Camilla Rm LPN on behalf of: ANSON Mon documented in this encounter [facility] 08-18-2024 Note HNO ID: [id number] Author: CLARICE ZEPEDA HUC Service: ? Author Type: Health Lamp [place] Joiner Type: Progress Notes Filed: 08/18/2024 09:03 Note Text: Mialed OTC-Nutritional Suppl order to pt CAROL ANN MARTINEZ [address] [facility] [id number] [facility] 08-18-2024 History of Present illness Narrative Mialed OTC-Nutritional Suppl order to pt CAROL ANN MARTINEZ [address] [facility] [id number] documented in this encounter [facility] 08-17-2024 History of Present illness Narrative Subjective [...] up MFM consultation available as indicated. Janice Escobar MD Maternal Medicine documented in this encounter [facility] Work Phone: 08-17-2024 Telephone encounter Note Prescription signed and had to be printed, will send out Letter written and placed in chart Tor Hernandez APRN.CNP August 17, 2024 10:26 AM [facility] 08-17-2024 Miscellaneous Notes Prescription signed and had to be printed, will send out Letter written and placed in chart Tor Hernandez APRN.CNP August 17, 2024 10:26 AM documented in this encounter [facility] 08-16-2024 History of Present illness Narrative [facility] [...] been reviewed prior to dispensing the medication. Ldr Nurse Assessment Patient confirmed: Yes Med/dose confirmed: Yes Supplies needed: No supplies needed Missed doses: No Estimated days supply on hand: (maybe 2 weeks, not sure) Next cycle/dose due: 08/16/24 Copay amount: 0 Payment confirmed: Yes Delivery method: FedEx Signature required: Waived on patient request Delivery address: [address] [place] [id number] Delivery date: 08/31/24 Questions or concerns for [...] (FLONASE) 50 mcg/actuation nasal spray Use 1 [place] in each nostril once daily. No current facility-administered medications on file prior to visit. [facility] RX SPECIALTY CLINICAL ASSESSMENT - NEUROLOGY V7: [...] inject where skin looks healthy. Training video ([employer] no longer supplies nurses for training, or injection devices) PFS supplied and training video [email or web address]/injectio [email or web address]-[email or web address]/lpt-[email or web address] DDI none pertinent Vaccines reviewed Est. Tx Plan Start Date: No information available Estimated Start Date Info: No information available Est. Estimated Treatment Duration: No information available Madison Puente (Weight Wins) documented in this encounter [facility] 08-16-2024 Note HNO ID: [id number] Author: KENZIE MCCALL RPh Service: ? Author Type: ? Type: Progress Notes Filed: 08/26/2024 07:04 Note Text: [facility] Specialty Refill Assessment Medication(s): [...] been reviewed prior to dispensing the medication. Ldr Nurse Assessment Patient confirmed: Yes Med/dose confirmed: Yes Supplies needed: No supplies needed Missed doses: No Estimated days supply on hand: (maybe 2 weeks, not sure) Next cycle/dose due: 08/16/24 Copay amount: 0 Payment confirmed: Yes Delivery method: FedEx Signature required: Waived on patient request Delivery address: [address] [place] [id number] Delivery date: 08/31/24 Questions or concerns for [...] (FLONASE) 50 mcg/actuation nasal spray Use 1 [place] in each nostril once daily. No current facility-administered medications on file prior to visit. [facility] RX SPECIALTY CLINICAL ASSESSMENT - NEUROLOGY V7: Assessment to use: Refill Assessment of injection issues or necrosis at injection sites: Yes Screening for infection: Yes Drug specific assessments, as appropriate: Yes Current medication list (including drug interaction assessment): Yes Experience of adverse reactions to the medication: Yes Date of influenza vaccination reminder: 07/21/2024 Date [...] inject where skin looks healthy. Training video ([employer] no longer supplies nurses for training, or injection devices) PFS supplied and training video [email or web address]/injectio n-[email or web address]/kyi-cn-ieylga DDI none pertinent Vaccines reviewed Est. Tx Plan Start Date: No information available Estimated Start Date Info: No information available Est. Estimated Treatment Duration: No information available Madison Puente (Printing Pressman) [facility] 08-10-2024 History of Present illness Narrative Reason [...] Vitamin (multivitamin) tablet 1 tablet, Oral, Daily Wupscafc-Aod-Lk-FA (Jenliva /) 1 MG capsule Oral Vit-Fe [...] Pap smear of cervix 2007 Bacterial vaginosis 2019 Hypocalcemia Hypoglycemia Low iron MS (multiple sclerosis) ([facility]) Urinary incontinence 2009 HISTORY PAST MEDICAL HISTORY SOCIAL HISTORY Past Medical History: Diagnosis Date Abnormal Pap smear of cervix 2007 Bacterial vaginosis 2019 Hypocalcemia Hypoglycemia Low iron MS (multiple sclerosis) ([facility]) Urinary incontinence 2009 Social History [...] nursing note reviewed. Exam conducted with a relay adjuster present. Vitals: Estimated body mass index is 21.91 kg/m as calculated from the following: Height as of 23: 5' 6.5 . Weight as of this [...] Clarke Hu DO documented in this encounter [facility] 07-30-2024 Note HNO ID: [id number] Author: IBAN LAZO, PhD Service: ? Author Type: Psychologist Type: Progress Notes Filed: 07/30/2024 16:31 Note Text: Behavioral Sleep Medicine Follow up Iban Lazo, PhD I have communicated my name and active licensure. The patient's identity and physical location were verified at the time of this visit. 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 Contact Method: Zoom Patient Confirmed Address: [address] [place], [place] [id number] Patient Confirmed Telephone #: [phone] Time: 56 minutes Individual Psychotherapy Session # [...] disorder RLS Multiple sclerosis PROGRESS TO DATE: Instructor Dancing Progress: Condition at intake Short Term Condition: [...] until feel sleepy (more content not included)... [facility] 07-20-2024 Instructions Germania Wilkinson MD - 07/20/2024 [...] hours of bedtime. documented in this encounter [facility] 07-20-2024 Note HNO ID: [id number] Author: GERMANIA WILKINSON MD Service: ? Author Type: Physician Type: Progress Notes Filed: 07/21/2024 15:38 Note Text: [facility] Sleep Disorders Center Follow up/ Established patient visit Date of last visit : 08/19/2023 I have communicated my name and active licensure. The patient's identity and physical location were verified at the time of this visit. Either the patient or their legal truck sales representative has been informed of the [...] sorted in reverse-chronological order 04/13/2024 05/23/2024 07/08/2024 Walton Sleepiness Scale Score 0 (No clinically significant [...] mg by mo (more content not included)... [facility] 07-20-2024 History of Present illness Narrative Images from the original note were not included. [facility] Sleep Disorders Center Follow up/ Established patient visit Date of last visit : 08/19/2023 I have communicated my name and active licensure. The patient's identity and physical location were verified at the time of this visit. Either the patient or their legal truck sales representative has been informed of the [...] sorted in reverse-chronological order 04/13/2024 05/23/2024 07/08/2024 Walton Sleepiness Scale Score 0 (No clinically significant [...] (FLONASE) 50 mcg/actuation nasal spray Use 1 Charlemont in each nostril once daily. PHYSICAL EXAMINATION: NEUROLOGICAL EXAM: General: Awake, alert, speech fluent, comprehension, naming, repetition intact. Short and senior living memory intact. IMPRESSION: Primary insomnia (primary encounter diagnosis) Rls (restless legs syndrome) Carol Ann Martinez is a 38 year old female with hx of MS and WINIFRED here for evaluation of insomnia, RLS. She is currently and has come off of trazodone for her insomnia. She is currently taking tihg-hib-bjxhuwz Unisom without much benefit. Her sleep is [...] BSM for CBTi Germania Wilkinson MD Clinical Storage Workerlicense inspector [facility] documented in this encounter [facility] 07-19-2024 Note HNO ID: [id number] Author: JANICE LANE MD Service: ? Author [...] the hip. She is not taken anything wkma-uyk-tlfpowu for it. Patient has multiple sclerosis. Her [...] few seconds when she was on a mlrcu-ic-mgmil with her daughter. She told her SOCIAL WORK SUPERVISOR about the symptoms she has started to [...] mucosa, and tongue (more content not included)... [facility] 07-19-2024 History of Present illness Narrative SUBJECTIVE: [...] the hip. She is not taken anything kcbw-gll-xtkrnoh for it. Patient has multiple sclerosis. Her [...] few seconds when she was on a xrjen-os-ggjww with her daughter. She told her SOCIAL WORK SUPERVISOR about the symptoms she has started to [...] by neurology. - CONSULT TO PHYSICAL THERAPY Davqwxrod-dzxsxa-ov with SOCIAL WORK SUPERVISOR as scheduled. Patient said she is on pelvic rest and limited lifting due to shortened cervix. Viral URI-if symptoms worsen, take amoxicillin Dry skin on the nose-give a trial of Elocon cream Janice Lane MD documented in this encounter [facility] 07-19-2024 History of Present illness Narrative [facility] [...] been reviewed prior to dispensing the medication. Ldr Nurse Assessment Patient confirmed: Yes Med/dose confirmed: Yes Supplies needed: No supplies needed Missed doses: No Estimated days supply on hand: 3 Next cycle/dose due: 07/19/24 Copay amount: 0 Payment confirmed: Yes Delivery method: FedEx Signature required: Waived on patient request Delivery address: [address] [place] [address] Delivery date: 07/23/24 Questions or concerns for [...] (FLONASE) 50 mcg/actuation nasal spray Use 1 Charlemont in each nostril once daily. No current facility-administered medications on file prior to visit. [facility] RX SPECIALTY CLINICAL ASSESSMENT - NEUROLOGY V7: [...] inject where skin looks healthy. Training video ([employer] no longer supplies nurses for training, or injection devices) PFS supplied and training video https://www.[employer]/injectio n-assistance/pok-th-vtmeoq DDI none pertinent Vaccines reviewed Est. Tx Plan Start Date: No information available Estimated Start Date Info: No information available Est. Estimated Treatment Duration: No information available Madison Puente (Weight Wins) documented in this encounter [facility] 07-19-2024 Note HNO ID: [id number] Author: KENZIE MCCALL RPh Service: ? Author Type: ? Type: [...] been reviewed prior to dispensing the medication. Ldr Nurse Assessment Patient confirmed: Yes Med/dose confirmed: Yes Supplies needed: No supplies needed Missed doses: No Estimated days supply on hand: 3 Next cycle/dose due: 07/19/24 Copay amount: 0 Payment confirmed: Yes Delivery method: FedEx Signature required: Waived on patient request Delivery address: [address] [address] Delivery date: 07/23/24 Questions or concerns for [...] (FLONASE) 50 mcg/actuation nasal spray Use 1 Charlemont in each nostril once daily. No current facility-administered medications on file prior to visit. [facility] RX SPECIALTY CLINICAL ASSESSMENT - NEUROLOGY V7: [...] inject where skin looks healthy. Training video ([employer] no longer supplies nurses for training, or injection devices) PFS supplied and training video https://www.[employer]/injectio n-assistance/pem-ey-pnemko DDI none pertinent Vaccines reviewed Est. Tx Plan Start Date: No information available Estimated Start Date Info: No information (more content not included)... [facility] 07-08-2024 Note HNO ID: [id number] Author: IBAN LAZO, PhD Service: ? Author Type: Psychologist Type: Progress Notes Filed: 07/08/2024 14:21 Note Text: Behavioral Sleep Medicine Follow up Iban Lazo, PhD I have communicated my name and active licensure. The patient's identity and physical location were verified at the time of this visit. 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 Contact Method: Zoom and Doximity (switched to Doximity after Zoom connection issues) Patient Confirmed Address: [address] [place], [place] [address] Patient Confirmed Telephone #: [phone] Time: 55 minutes Individual Psychotherapy Session # [...] disorder RLS Multiple sclerosis PROGRESS TO DATE: Detention Progress: Condition at intake Short Term Condition: [...] of HSAT results Iban Lazo, PhD, Psychologist ([place] license [id number]) [facility] 06-22-2024 Note HNO ID: [id number] Author: NATALIE NEWBERRY RPh Service: ? Author [...] disease state markers and outcomes. Natalie Newberry [facility] Ldr Nurse Assessment Patient confirmed: Yes Med/dose confirmed: Yes Supplies needed: No supplies needed Missed doses: No Estimated days supply on hand: 7 Next cycle/dose due: 06/23/24 Copay amount: 0 Delivery method: FedEx Signature required: Waived on patient request Delivery address: [address] [place] [id number] Delivery date: 06/25/24 Questions or concerns for [...] (FLONASE) 50 mcg/actuation nasal spray Use 1 Charlemont in each nostril once daily. No current facility-administered medications on file prior to visit. [facility] RX SPECIALTY CLINICAL ASSESSMENT - NEUROLOGY V7: [...] inject where skin looks healthy. Training video ([employer] no longer supplies nurses for training, or injection devices) PFS supplied and training video https://www.[employer]/injectio n-assistance/jvk-ye-jhsact DDI none pertinent Vaccines reviewed Est. Tx Plan Start Date: No information available Estimated Start Date Info: No information available Est. Estimated Treatment Duration: No information available Rian (more content not included)... [facility] 06-22-2024 Telephone encounter Note The following approved medication requests have been transmitted electronically. Requested Prescriptions Signed Prescriptions Disp Refills glatiramer (COPAXONE) 40 mg/mL injection 12 mL 5 Sig: Inject 40 mg subcutaneously every Friday, Friday, and Friday. Authorizing Provider: TOR HERNANDEZ APRN.ENVIRONMENTAL PROJECTS ADVISOR [facility] 06-22-2024 Miscellaneous Notes The following approved medication requests have been transmitted electronically. Requested Prescriptions Signed Prescriptions Disp Refills glatiramer (COPAXONE) 40 mg/mL injection 12 mL 5 Sig: Inject 40 mg subcutaneously every Friday, Friday, and Friday. Authorizing Provider: TOR HERNANDEZ APRN.ENVIRONMENTAL PROJECTS ADVISOR Patient is in need of a new prescription as follows: Requested Prescriptions Pending Prescriptions Disp Refills glatiramer (COPAXONE) 40 mg/mL injection 12 mL 5 Sig: Inject 40 mg subcutaneously every Friday, Friday, and Friday. Last office visit 06-09-24 Please review and advise. Marcin Ervin RPh documented in this encounter [facility] 06-22-2024 Telephone encounter Note Patient is in need of a new prescription as follows: Requested Prescriptions Pending Prescriptions Disp Refills glatiramer (COPAXONE) 40 mg/mL injection 12 mL 5 Sig: Inject 40 mg subcutaneously every Friday, Friday, and Friday. Last office visit 06-09-24 Please review and advise. Marcin Ervin RPh [facility] 06-16-2024 Note HNO ID: [id number] Author: JOSR VICENTE, PhD Service: ? Author [...] Circadian Rhythm delayed. Procedure: Actigraphy (CPT code 66442) Reason for study: sleep pattern Length of [...] not included in analysis Using the Vargas Kripke algorithm, data was extrapolated manually to determine [...] likely circadian rhythm sleep disorder delayed type. [place] : Josr Vicente, PhD, [facility] Psychologist ([place] License [id number]) Behavioral Sleep Medicine Disclosure: There are limitations of actigraphy data. This test is not a measure of daytime sleepiness or insomnia. Findings may suggest the etiology of sleepiness due to an observed pattern or help in the understanding of patterns associated with conditions being evaluated [facility] 06-14-2024 Note HNO ID: [id number] Author: ?, ?, ? Service: ? Author Type: ? Type: Progress Notes Filed: 06/14/2024 14:32 Note Text: Returned with logs [facility] 06-14-2024 History of Present illness Narrative Returned with logs Called patient to return watch ACTIGRAPHY DEVICE #[id number] Date shipped out 05/25/2024 [employer] MAIL OUT TRACKING NUMBER [id number] [employer]ex RETURN TRACKING NUMBER [id number], Achasah documented in this encounter [facility] 06-11-2024 Telephone encounter Note This TRACTOR CRANE OPERATOR put in a referral to the [facility] for pt to get connected to additional resources. DEZ Archer, [facility] Social Work [facility] 06-11-2024 Miscellaneous Notes This TRACTOR CRANE OPERATOR put in a referral to the [facility] for pt to get connected to additional resources. DEZ Archer, [facility] Social Work documented in this encounter [facility] 06-11-2024 Note HNO ID: [id number] Author: ?, ?, ? Service: ? Author Type: ? Type: Progress Notes Filed: 06/14/2024 14:32 Note Text: Called patient to return watch [facility] 06-10-2024 Note HNO ID: [id number] Author: CLARICE ZEPEDA HUC Service: ? Author Type: Health Lamp Shade Joiner Type: Progress Notes Filed: 06/10/2024 13:06 Note Text: Mailed-nutritional supplement OTC TO PATIENT [facility] 06-10-2024 History of Present illness Narrative Mailed-nutritional supplement OTC TO PATIENT documented in this encounter [facility] 06-09-2024 Instructions Tor Hernandez APRN.CNP - 06/09/2024 3:40 PM EDT PLAN: - Continue Copaxone - plan to resume Ocrevus after delivery - Will hold on further MRI monitoring for now - Recommend oral nutritional supplement - Recommend continued close follow up with PCP and OB - Will reach out to Chris [facility] re: finances/resources - Follow up soon after deliver documented in this encounter [facility] 06-09-2024 History of Present illness Narrative Images from the original note were not included. [facility] FOLLOWUP/ESTABLISHED VIRTUAL PATIENT VISIT PRINCIPAL NEUROLOGIC DIAGNOSIS: Multiple Sclerosis DISEASE SUMMARY Date of onset: 03/2007 Date of diagnosis of MS: 03/2007 Disease course at onset: Relapsing-Remitting Current disease course: Progressive without relapses Previous disease therapies: - Betaseron 8245-7152 - Copaxone 3799-4965 - Tysabri 2009-Summer 2019 (stopped due to [...] over 3 weeks following occipital relase - 8983-7104 recurrent OS ON - 4941-8829 several relapses including L numbness, weakness, constipation, urinary urgency - 2019 R weakness and numbness needing a wheelchair, hospitalized at [facility] (off Tysabri x3 months due to planning ). Also had OD vision loss at this time. At this time also notes substantial mold exposure due to it being all over her apt (has since moved). CHIEF COMPLAINT: MS symptom management Usual treating team: Esther/David Today's visit is being completed virtually over [employer]. I have communicated my name and active licensure. The patient's identity and physical location were verified at the time of this visit. Either the patient or their legal truck sales representative has been informed of the [...] Work from 01/21/2024 in [facility] Office Visit from 07/23/2023 in [facility] Office Visit from 01/17/2023 in [facility] Upper Extremity Domain T Score 28 [...] Work from 01/21/2024 in [facility] Office Visit from 07/23/2023 in [facility] Office Visit from 01/17/2023 in [facility] Sleep Domain T Score 66 69.2 [...] lower extremity (04/17/2021), Multiple sclerosis (HCC), Seizure ([facility]), and Thyroid disease. She has no past medical history of Asthma, Blood dyscrasia, Breast disorder, Chlamydia, Chronic kidney disease, Complication of anesthesia, Coronary artery disease, Diabetes ([facility]), Diabetes, gestational, Gonorrhea, Herpes simplex virus (HSV) infection, History of pre-eclampsia in prior , currently , HIV infection ([facility]), Hypertension, Infertility, female, Liver disease, Malignant hyperthermia due to anesthesia, Mental disorder, Placental abruption, depression, hemorrhage, Rh incompatibility, Sickle cell anemia ([facility]), Syphilis, or Systemic lupus erythematosus ([facility]). has a current medication list [...] Visit from 07/23/2023 in [facility] Office Visit from 01/17/2023 in [facility] Processing Speed Total Number Correct 52 [...] intellectual function Affect: Normal RESULTS: - see CareEverywhere for labs 04/02/24 A1c (5.2), CBC diff [...] and OB - Will reach out to Chris almaguer: finances/resources - Follow up soon after deliver No orders found for this visit on 06/09/24. I spent a total of 40 minutes on the date of the service which included preparing to see the patient, jcfi-fj-qpnb patient care, completing clinical documentation, obtaining and/or reviewing separately obtained history, performing a medically appropriate examination, counseling and educating the patient/family/caregiver, communicating with other HCPs (not separately reported), independently interpreting results (not separately reported), and communicating results to the patient/family/caregiver. Tor Hernandez APRN.CNP [facility] for Multiple Sclerosis documented in this encounter [facility] 06-09-2024 Note HNO ID: [id number] Author: TOR HERNANDEZ APRN.CNP Service: ? Author Type: Nurse Practitioner Type: Progress Notes Filed: 06/09/2024 15:43 Note Text: [facility] FOLLOWUP/ESTABLISHED VIRTUAL PATIENT VISIT PRINCIPAL NEUROLOGIC DIAGNOSIS: Multiple Sclerosis DISEASE SUMMARY Date of onset: 03/2007 Date of diagnosis of MS: 03/2007 Disease course at onset: Relapsing-Remitting Current disease course: Progressive without relapses Previous disease therapies: - Betaseron 3900-6067 - Copaxone - Tysabri 2019 (stopped due to planned ) - [...] over 3 weeks following occipital relase - 9179-6220 recurrent OS ON - several relapses including L numbness, weakness, constipation, urinary urgency - 2019 R weakness and numbness needing a wheelchair, hospitalized at [facility] (off Tysabri x3 months due to planning ). Also had OD vision loss at this time. At this time also notes substantial mold exposure due to it being all over her apt (has since moved). CHIEF COMPLAINT: MS symptom management Usual treating team: Christina Today's visit is being completed virtually over [employer]. I have communicated my name and active licensure. The patient's identity and physical location were verified at the time of this visit. Either the patient or their legal truck sales representative has been informed of the [...] Work from 01/21/2024 in [facility] Office Visit from 07/23/2023 in [facility] Office Visit from 01/17/2023 in [facility] Upper Extremity Domain T Score 28 [...] Flowsheet Row Social Work from 01/21/2024 in [facility] Office Visit from 07/23/2023 in [facility] Office Visit from 01/17/2023 in [facility] Sleep Domain T Score 66 69.2 [...] Edema of lower extremity (04/17/2021), Multiple sclerosis ([facility]), Seizure ([facility]), and Thyroid disease. She has no past medical history of Asthma, Blood dyscrasia, Breast disorder, Chlamydia, Chronic kidney disease, Complication of anesthesia, Coronary artery disease, Diabetes ([facility]), Diabetes, gestational, Gonorrhea, Herpes simplex virus (HSV) infection, History of pre-eclampsia in prior , currently pregna (more content not included)... [facility] 06-08-2024 Instructions Germania Wilkinson MD - [...] is done to review results. - Call [phone] to schedule your sleep study and follow [...] the central scheduling system for the [facility] [place] at [phone]. [facility] Sleep Disorders Center website: [email or web address] documented in this encounter [facility] 06-08-2024 Note HNO ID: [id number] Author: GERMANIA WILKINSON MD Service: ? Author Type: Physician Type: Progress Notes Filed: 07/05/2024 23:04 Note Text: [facility] Sleep Disorders Center Follow up/ Established patient visit Date of last visit : 08/19/2023 I have communicated my name and active licensure. The patient's identity and physical location were verified at the time of this visit. Either the patient or their legal truck sales representative has been informed of the [...] Syndrome Abnormal sleep/wake timing 03/19/2024 04/13/2024 05/23/2024 Walton Sleepiness Scale Score 0 (No clinically significant [...] (FLONASE) 50 mcg/actuation nasal spray Use 1 Charlemont in each nostril once daily. Prior Hypersomnia/Narcolepsy [...] prescription Medication renetta (more content not included)... [facility] 06-08-2024 History of Present illness Narrative Images from the original note were not included. [facility] Sleep Disorders Center Follow up/ Established patient visit Date of last visit : 08/19/2023 I have communicated my name and active licensure. The patient's identity and physical location were verified at the time of this visit. Either the patient or their legal truck sales representative has been informed of the [...] Syndrome Abnormal sleep/wake timing 03/19/2024 04/13/2024 05/23/2024 Walton Sleepiness Scale Score 0 (No clinically significant [...] (FLONASE) 50 mcg/actuation nasal spray Use 1 Charlemont in each nostril once daily. Prior Hypersomnia/Narcolepsy [...] Germania Wilkinson MD documented in this encounter [facility] 05-27-2024 Note HNO ID: [id number] Author: IBAN LAZO, PhD Service: ? Author Type: Psychologist Type: Progress Notes Filed: 05/27/2024 18:02 Note Text: Behavioral Sleep Medicine Follow up Iban Lazo, PhD I have communicated my name and active licensure. The patient's identity and physical location were verified at the time of this visit. 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 Contact Method: Zoom Patient Confirmed Address: Located in [place] Pt was in a vehicle with her home health aide as the transportation driver, pt was passenger, pt gave consent to conduct visit in presence of home health aide. 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 Patient Confirmed Telephone #: [phone] Time: 33 minutes Individual Psychotherapy Session # [...] a vehicle not in her [place]- [place]. She stated that she does not know [...] to avoid driving if sleepy/drowsy and to puller over to a safe space to rest if she does find herself drowsy/sleepy while driving. Pt noted that her SOCIAL WORK SUPERVISOR stated she could take Unisom to sleep during - asked pt to wait to take this medication until after she completes actigraphy testing as we want to get a sense of her baseline sleep rhythms. Pt verbalized understanding. Pt reported that sleep quality has been the same. Pt stated that she is working with a therapist at [facility] named Aravind Retana- she reported that they most recently have talked about helping her to stop shopping and learning how to say no to people. Pt provided verbal consent for this provider to contact Aravind Retana to discuss pt's case to coordinate care and provided his contact phone number: [phone] Discussed the following plan with patient Complete [...] disorder RLS Multiple sclerosis PROGRESS TO DATE: Instructor Dancing Progress: Condition at intake Short Term Condition: [...] to start Uniso (more content not included)... [facility] 05-25-2024 Note HNO ID: [id number] Author: ?, ?, ? Service: ? Author Type: ? Type: Progress Notes Filed: 06/14/2024 14:32 Note Text: ACTIGRAPHY DEVICE #[id number] Date shipped out 05/25/2024 [employer] MAIL OUT TRACKING NUMBER [id number] [employer] RETURN TRACKING NUMBER [id number] [facility] 05-24-2024 History of Present illness Narrative [...] laboratory parameters, disease state markers and outcomes. Ldr Nurse Assessment Patient confirmed: Yes Med/dose confirmed: Yes Supplies needed: Alcohol swabs Missed doses: No Estimated days supply on hand: 10 Next cycle/dose due: 05/26/24 Copay amount: 0 Delivery method: FedEx Signature required: Waived on patient request Delivery address: [address] [address] Delivery date: 06/01/24 Questions or concerns for [...] (FLONASE) 50 mcg/actuation nasal spray Use 1 Charlemont in each nostril once daily. No current facility-administered medications on file prior to visit. [facility] Visit Assessment - Neurology: Assessment [...] inject where skin looks healthy. Training video ([employer] no longer supplies nurses for training, or injection devices) PFS supplied and training video https://www.[employer]/injectio n-assistance/tzj-io-kloxbz DDI none pertinent Vaccines reviewed Jus Saucedo CPhT Neurology, Cardiology & Infectious Disease [facility] documented in this encounter [facility] 05-24-2024 Note HNO ID: [id number] Author: MARCIN ERVIN RPh Service: ? Author [...] markers and outcomes. Marcin Ervin, PharmD Pharmacist, [facility] Specialty Retail Stocker Assessment Patient confirmed: Yes Med/dose confirmed: Yes Supplies needed: Alcohol swabs Missed doses: No Estimated days supply on hand: 10 Next cycle/dose due: 05/26/24 Copay amount: 0 Delivery method: FedEx Signature required: Waived on patient request Delivery address: [address] [place] [address] Delivery date: 06/01/24 Questions or concerns for [...] (FLONASE) 50 mcg/actuation nasal spray Use 1 Charlemont in each nostril once daily. No current facility-administered medications on file prior to visit. [facility] Visit Assessment - Neurology: Assessment [...] inject where skin looks healthy. Training video ([employer] no longer supplies nurses for training, or injection devices) PFS supplied and training video https://www.[employer]/injectio n-assistance/hsp-bb-atoscs DDI none pertinent Vaccines reviewed Refill Assessment: Assessment of injection issues or necrosis at injection sites: Yes Screening for infection: Yes Adverse reactions and mitigation: Yes Drug specific assessments, as appropriate: Yes Additional Assessment: S/Sx of relapse: No S/Sx of progression to secondary progressive disease: No (more content not included)... [facility] 05-10-2024 Note HNO ID: [id number] Author: IBAN LAZO, PhD Service: ? Author Type: Psychologist Type: Progress Notes Filed: 05/10/2024 14:16 Note Text: Appointment canceled. Pt logged on to visit but was located in a public setting and in the state of [place]. Explained that due to psychology licensure laws I cannot meet with patients unless they are physically located within the state of [place]. Pt stated she is returning to [place] on Wednesday 05/16. Next visit scheduled for 05/27. Iban Lazo, PhD, Psychologist ([place] license [id number]) [facility] 04-26-2024 History of Present illness Narrative [...] laboratory parameters, disease state markers and outcomes. Ldr Nurse Assessment Patient confirmed: Yes Med/dose confirmed: Yes Supplies needed: No supplies needed Missed doses: Yes Count of missed doses: 1 Reason for missed doses: stated medication misfired Estimated days supply on hand: 4 Next cycle/dose due: 04/26/24 Copay amount: 0 Payment confirmed: Yes Delivery method: FedEx Signature required: Waived on patient request Delivery address: [address] [place] [address] Delivery date: 04/28/24 Questions or concerns for [...] (FLONASE) 50 mcg/actuation nasal spray Use 1 Charlemont in each nostril once daily. No current facility-administered medications on file prior to visit. [facility] Visit Assessment - Neurology: Assessment [...] inject where skin looks healthy. Training video ([employer] no longer supplies nurses for training, or injection devices) PFS supplied and training video https://www.[employer]/injectio n-assistance/tcf-jq-jnkydk DDI none pertinent Vaccines reviewed Jazmine Mcclure CPhT Cardiology, Neurology & Infectious Disease [facility] documented in this encounter [facility] 04-26-2024 Note HNO ID: [id number] Author: MARCIN ERVIN RPh Service: ? Author [...] markers and outcomes. Marcin Ervin, DevonteD Pharmacist, [facility] Specialty Retail Stocker Assessment Patient confirmed: Yes Med/dose confirmed: Yes Supplies needed: No supplies needed Missed doses: Yes Count of missed doses: 1 Reason for missed doses: stated medication misfired Estimated days supply on hand: 4 Next cycle/dose due: 04/26/24 Copay amount: 0 Payment confirmed: Yes Delivery method: FedEx Signature required: Waived on patient request Delivery address: [address] [facility] [address] Delivery date: 04/28/24 Questions or concerns for [...] (FLONASE) 50 mcg/actuation nasal spray Use 1 Charlemont in each nostril once daily. No current facility-administered medications on file prior to visit. [facility] Visit Assessment - Neurology: Assessment [...] inject where skin looks healthy. Training video ([employer] no longer supplies nurses for training, or injection devices) PFS supplied and training video https://www.[employer]/injectio n-assistance/dtu-mc-nrzcsc DDI none pertinent Vaccines reviewed Refill Assessment: Assessment of injection issues or necrosis at injection sites: Yes Screening for infection: Yes Adverse reactions and mitigation: Yes Drug specific assessments, as appropriate: Yes Additional Assessment: Current MPR%: 100 S/Sx of relapse: No S/Sx of progression to secondary progressive disease: (more content not included)... [facility] 04-20-2024 Note HNO ID: [id number] Author: IBAN LAZO, PhD Service: ? Author Type: Psychologist Type: Progress Notes Filed: 04/21/2024 12:27 Note Text: Behavioral Sleep Medicine Follow up Iban Lazo, PhD I have communicated my name and active licensure. The patient's identity and physical location were verified at the time of this visit. 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 Contact Method: Zoom Patient Confirmed Address: [address] [address] Patient Confirmed Telephone #: [phone] Time: 45 minutes Individual Psychotherapy Session # [...] disorder RLS Multiple sclerosis PROGRESS TO DATE: Instructor Dancing Progress: Condition at intake Short Term Condition: [...] team members. 6. (more content not included)... [facility] 03-31-2024 History of Present illness Narrative [facility] received prescription(s) for Glatiramer from Dr. Tor Hernandez office. Benefits investigation was conducted, indicating we will need to call to verify if a prior authorization is required/needed by pt's plan with [employer] . Thang Santana CPhT (Dee) [facility] Neurology/Cardiology/Infections Disease [facility] P: F: PA for pt's Glatiramer has been approved by [employer]. Reuben 03/31/24 - 11/09/24. Madison Puente [facility] Retail Stocker, Specialty Pharmacy [facility] [address] [facility] / [id number] [place] [address] Email: [email or web address] documented in this encounter [facility] 03-31-2024 Note HNO ID: [id number] Author: ?, ?, ? Service: ? Author Type: ? Type: Progress Notes Filed: 03/31/2024 10:57 Note Text: [facility] received prescription(s) for Glatiramer from Dr. oTr Hernandez office. Benefits investigation was conducted, indicating we will need to call to verify if a prior authorization is required/needed by pt's plan with [employer] . Thang Santana CPhT (Dee) [facility] Neurology/Cardiology/Infections Disease [facility] P: F: [facility] 03-31-2024 Note HNO ID: [id number] Author: ?, ?, ? Service: ? Author Type: ? Type: Progress Notes Filed: 03/31/2024 12:24 Note Text: PA for pt's Glatiramer has been approved by Sherri. Reuben 03/31/24 - 11/09/24. Madison Puente [facility] Retail Stocker, Specialty Pharmacy [facility] [address] / [id number] [place] [address] Email: [email or web address] [facility] 03-31-2024 Note HNO ID: [id number] Author: NATALIE NEWBERRY [facility] Service: ? Author Type: Pharmacist Type: Progress Notes Filed: 04/08/2024 11:37 Note Text: [facility] received prescription(s) for Glatiramer from Dr. Warren's office. Benefits investigation was conducted, indicating that a prior authorization is required. PA was approved with details listed below: Plan Name: Sherri GRIGGS reference number: [id number] Approval Dates: 03/31/24 to 11/09/24 Pt's copay [...] MD No Neurogenic bladder 07/14/2020 Nikole Moe APRN.ENVIRONMENTAL PROJECTS ADVISOR No Overview Signed 04/17/2021 7:30 AM by Nikole Moe APRN.ENVIRONMENTAL PROJECTS ADVISOR On most recent creatinine was normal. Will obtain renal ultrasound at her convenience to assess for any upper tract changes On most recent creatinine was normal. Will obtain renal ultrasound at her convenience to assess for any upper tract changes Chronic insomnia 01/04/2020 Iesha Pearson MD No Multiple sclerosis (HCC) 11/15/2019 Nidia Garcia MD No Optic neuritis 08/21/2019 Nikole Moe APRN.ENVIRONMENTAL PROJECTS ADVISOR No Overview Signed 04/17/2021 7:30 AM by Nikole Moe APRN.ENVIRONMENTAL PROJECTS ADVISOR Start Date: 03/2009 Start Date: 03/2009 Bilateral hearing loss 07/14/2018 Nikole Moe APRN.ENVIRONMENTAL PROJECTS ADVISOR No Ovarian cyst, complex 04/14/2018 Nikole Moe APRN.ENVIRONMENTAL PROJECTS ADVISOR No Ovarian torsion 04/14/2018 Nikole Moe PRIVATE INVESTIGATOR.ENVIRONMENTAL PROJECTS ADVISOR No Restless leg syndrome 07/28/2017 Nikole Moe APRN.ENVIRONMENTAL PROJECTS ADVISOR No Cognitive communication deficit 07/22/2022 Amina Vazquez, [facility]ASH CONTROLLER 07/17/[address] MD Costochondritis, acute 04/17/2021 Nikole Moe PRIVATE INVESTIGATOR.ENVIRONMENTAL PROJECTS ADVISOR 04/20/2021 Nikole Moe, PRIVATE INVESTIGATOR.ENVIRONMENTAL PROJECTS ADVISOR Edema of lower extremity 04/17/2021 Nikole Moe, PRIVATE INVESTIGATOR.ENVIRONMENTAL PROJECTS ADVISOR 04/20/2021 Nikole Moe PRIVATE INVESTIGATOR.ENVIRONMENTAL PROJECTS ADVISOR Hypoglycemia 03/07/2021 Nikole Moe PRIVATE INVESTIGATOR.ENVIRONMENTAL PROJECTS ADVISOR 07/17/[address] MD NO SHOW 01/22/2021 Lala Forman, DO 04/17/2021 Nikole Moe PRIVATE INVESTIGATOR.ENVIRONMENTAL PROJECTS ADVISOR Encounter for induction of labor 01/08/2021 Subha [...] Jo-Ann Aragon MD Constipation 10/06/2019 Nikole Moe, PRIVATE INVESTIGATOR.ENVIRONMENTAL PROJECTS ADVISOR 07/17/[address] MD Gait difficulty 10/06/2019 Nikole Moe, PRIVATE INVESTIGATOR.ENVIRONMENTAL PROJECTS ADVISOR 07/17/[address] MD Cognitive complaints 03/03/2019 Nikole Moe, PRIVATE INVESTIGATOR.ENVIRONMENTAL PROJECTS ADVISOR 07/17/[address] MD Syncope and collapse 12/04/2018 Nikole Moe PRIVATE INVESTIGATOR.ENVIRONMENTAL PROJECTS ADVISOR 07/17/[address] MD Obstructive sleep apnea 07/28/2017 Payal, (more content not included)... [facility] 03-30-2024 Note HNO ID: [id number] Author: ROXY HOGAN PSYD Service: ? Author Type: Resident Type: Progress Notes Filed: 04/01/2024 10:51 Note Text: [facility] BE[facility]AVIORAL SLEEP MEDIC[facility] CBT-Initiate Virtual Group March 30, 2024 Time: 3-4:05pm [id number]: Virtual Group Psychotherapy Providers: Teo I have communicated my name and active licensure. The patient's identity and physical location were verified at the time of this visit. Either the patient or their legal truck sales representative has been informed of the [...] transcribed by Iris Yoon, PhD BSM Fellow [facility] 03-30-2024 Note HNO ID: [id number] Author: CLARICE ZEPEDA HUC Service: ? Author Type: Health Lamp Shade Joiner Type: Progress Notes Filed: 03/30/2024 14:55 Note Text: Faxed Glatiramer Acetate form with ins info [facility] 03-30-2024 History of Present illness Narrative Faxed Glatiramer Acetate form with ins info documented in this encounter [facility] 03-30-2024 Instructions Tor Hernandez APRN.CNP - 03/30/2024 2:27 PM EDT PLAN: - Stop Ocrevus for now - Will hold on further MRI monitoring for now - Will submit for Copaxone during - Stop Ampyra and tizanidine - Continue vitamin D and magnesium - Follow up in 8-9 months virtually documented in this encounter [facility] 03-30-2024 History of Present illness Narrative Images from the original note were not included. [facility] FOLLOWUP/ESTABLISHED VIRTUAL PATIENT VISIT PRINCIPAL NEUROLOGIC DIAGNOSIS: Multiple Sclerosis DISEASE SUMMARY Date of onset: 03/2007 Date of diagnosis of MS: 03/2007 Disease course at onset: Relapsing-Remitting Current disease course: Progressive without relapses Previous disease therapies: - Betaseron 9665-9805 - Copaxone 1375-7663 - Tysabri 2009-Summer 2019 (stopped due to [...] over 3 weeks following occipital relase - 4223-1282 recurrent OS ON - 6499-5051 several relapses including L numbness, weakness, constipation, urinary urgency - 2019 R weakness and numbness needing a wheelchair, hospitalized at [facility] (off Tysabri x3 months due to planning ). Also had OD vision loss at this time. At this time also notes substantial mold exposure due to it being all over her apt (has since moved). CHIEF COMPLAINT: Follow up, discussion on recent + Usual treating team: Esther/David Today's visit is being completed virtually over [employer]. I have communicated my name and active licensure. The patient's identity and physical location were verified at the time of this visit. Either the patient or their legal truck sales representative has been informed of the [...] to that Is trying to find a show dog trainer as she knows she needs to improve her strength Last took Copaxone and felt good Would like to continue Copaxone again this - will need her group home paraprofessional to administer injections Does plan to breastfeed after this Recalls her MS symptoms were stable until ~ 3 months pp Neuro-QoL Functions (higher=better functioning) Flowsheet Row Social Work from 01/21/2024 in [facility] Office Visit from 07/23/2023 in [facility] Office Visit from 01/17/2023 in [facility] Upper Extremity Domain T Score 28 [...] Work from 01/21/2024 in [facility] Office Visit from 07/23/2023 in [facility] Office Visit from 01/17/2023 in [facility] Sleep Domain T Score 66 69.2 [...] Edema of lower extremity (04/17/2021), Multiple sclerosis ([facility]), Seizure ([facility]), and Thyroid disease. She has no past medical history of Asthma, Blood dyscrasia, Breast disorder, Chlamydia, Chronic kidney disease, Complication of anesthesia, Coronary artery disease, Diabetes ([facility]), Diabetes, gestational, Gonorrhea, Herpes simplex virus (HSV) infection, History of pre-eclampsia in prior , currently , HIV infection ([facility]), Hypertension, Infertility, female, Liver disease, Malignant hyperthermia due to anesthesia, Mental disorder, Placental abruption, depression, hemorrhage, Rh incompatibility, Sickle cell anemia ([facility]), Syphilis, or Systemic lupus erythematosus ([facility]). has a current medication list [...] Visit from 07/23/2023 in [facility] Office Visit from 01/17/2023 in [facility] Processing Speed Total Number Correct 52 [...] D supplementation Follow-up: In 9 months at [place] or Virtual Visit with [facility] APC I spent a total of 40 minutes on the date of the service which included preparing to see the patient, [id number] patient care, completing clinical documentation, obtaining and/or reviewing separately obtained history, performing a medically appropriate examination, counseling and educating the patient/family/caregiver, and ordering medications, tests, or procedures. Tor Hernandez APRN.CNP [facility] for Multiple Sclerosis documented in this encounter [facility] 03-30-2024 Note HNO ID: [id number] Author: TOR HERNANDEZ APRN.CNP Service: ? Author Type: Nurse Practitioner Type: Progress Notes Filed: 03/30/2024 14:27 Note Text: [facility] FOLLOWUP/ESTABLISHED VIRTUAL PATIENT VISIT PRINCIPAL NEUROLOGIC DIAGNOSIS: Multiple Sclerosis DISEASE SUMMARY Date of onset: 03/2007 Date of diagnosis of MS: 03/2007 Disease course at onset: Relapsing-Remitting Current disease course: Progressive without relapses Previous disease therapies: - Betaseron 2480-4400 - Copaxone - Tysabri 2009-Summer 2019 (stopped [...] over 3 weeks following occipital relase - 8248-9427 recurrent OS ON - several relapses including L numbness, weakness, constipation, urinary urgency - 2019 R weakness and numbness needing a wheelchair, hospitalized at [facility] (off Tysabri x3 months due to planning ). Also had OD vision loss at this time. At this time also notes substantial mold exposure due to it being all over her apt (has since moved). CHIEF COMPLAINT: Follow up, discussion on recent + Usual treating team: Christina Today's visit is being completed virtually over [employer]. I have communicated my name and active licensure. The patient's identity and physical location were verified at the time of this visit. Either the patient or their legal truck sales representative has been informed of the [...] unintentional, was on control and reports compliance DANOR 12/29/23, thinks last period was end of January/early February Overall feeling well from symptom perspective Still processing emotionally but is thankful Home care was not able to continue as she was able to leave the house to take her child to school Is no longer receiving therapy due to that Is trying to find a show dog trainer as she knows she needs to improve her strength Last took Copaxone and felt good Would like to continue Copaxone again this - will need her group home paraprofessional to administer injections Does plan to breastfeed after this Recalls her MS symptoms were stable until ~ 3 months pp Neuro-QoL Functions (higher=better functioning) Flowsheet Row Social Work from 01/21/2024 in [facility] Office Visit from 07/23/2023 in [facility] Office Visit from 01/17/2023 in [facility] Upper Extremity Domain T Score 28 [...] Work from 01/21/2024 in [facility] Office Visit from 07/23/2023 in [facility] Office Visit from 01/17/2023 in [facility] Sleep Domain T Score 66 69.2 [...] Complication of anesthesia, Coronary artery disease, Diabetes ([facility]), Diabetes, gestational, Gonorrhea, Herpes simplex virus (HSV) infection, History of pre-eclampsia in prior , currently , HIV infection ([facility]), Hypertension, Infertility, female, Liver disease, Malignant hyperthermia due to anesthesia, Mental disorder, Placental abruption, depression, hemorrhage, Rh incompatibility, Sickle cell anemia ([facility]), Syphilis, or Systemic lupus erythematosus ([facility]). has a current medication list which includes the following prescription(s): ketoconazole, ferrous sulfate, ketoconazole, melatonin, fluticasone, magnesium oxide, polyethylene glycol 3350, cholecalciferol, mirtazapine, norethindrone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 investigate or prosecute any alcohol or drug abuse patient.[facility] CenterIn the event this information is protected by the Federal Confidentiality of Alcohol and Drug Abuse Patient Records regulations: The Federal rules restrict any use of the information to criminally investigate or prosecute any alcohol or drug abuse patient.[facility] CenterIn the event this information is protected by the Federal Confidentiality of Alcohol and Drug Abuse Patient Records regulations: The Federal rules restrict any use of the information to criminally investigate or prosecute any alcohol or drug abuse patient.[facility] CenterIn the event this information is protected by the Federal Confidentiality of Alcohol and Drug Abuse Patient Records regulations: The Federal rules restrict any use of the information to criminally investigate or prosecute any alcohol or drug abuse patient.[facility] CenterIn the event this information is protected by the Federal Confidentiality of Alcohol and Drug Abuse Patient Records regulations: The Federal rules restrict any use of the information to criminally investigate or prosecute any alcohol or drug abuse patient.[facility] CenterIn the event this information is protected by the Federal Confidentiality of Alcohol and Drug Abuse Patient Records regulations: The Federal rules restrict any use of the information to criminally investigate or prosecute any alcohol or drug abuse patient.[facility] CenterIn the event this information is protected by the Federal Confidentiality of Alcohol and Drug Abuse Patient Records regulations: The Federal rules restrict any use of the information to criminally investigate or prosecute any alcohol or drug abuse patient.[facility] CenterIn the event this information is protected by the Federal Confidentiality of Alcohol and Drug Abuse Patient Records regulations: The Federal rules restrict any use of the information to criminally investigate or prosecute any alcohol or drug abuse patient.[facility] CenterIn the event this information is protected by the Federal Confidentiality of Alcohol and Drug Abuse Patient Records regulations: The Federal rules restrict any use of the information to criminally investigate or prosecute any alcohol or drug abuse patient.[facility] CenterIn the event this information is protected by the Federal Confidentiality of Alcohol and Drug Abuse Patient Records regulations: The Federal rules restrict any use of the information to criminally investigate or prosecute any alcohol or drug abuse patient.[facility] CenterIn the event this information is protected by the Federal Confidentiality of Alcohol and Drug Abuse Patient Records regulations: The Federal rules restrict any use of the information to criminally investigate or prosecute any alcohol or drug abuse patient.[facility] CenterIn the event this information is protected by the Federal Confidentiality of Alcohol and Drug Abuse Patient Records regulations: The Federal rules restrict any use of the information to criminally investigate or prosecute any alcohol or drug abuse patient.[facility] CenterIn the event this information is protected by the Federal Confidentiality of Alcohol and Drug Abuse Patient Records regulations: The Federal rules restrict any use of the information to criminally investigate or prosecute any alcohol or drug abuse patient.[facility] CenterIn the event this information is protected by the Federal Confidentiality of Alcohol and Drug Abuse Patient Records regulations: The Federal rules restrict any use of the information to criminally investigate or prosecute any alcohol or drug abuse patient.[facility] CenterIn the event this information is protected by the Federal Confidentiality of Alcohol and Drug Abuse Patient Records regulations: The Federal rules restrict any use of the information to criminally investigate or prosecute any alcohol or drug abuse patient.[facility] CenterIn the event this information is protected by the Federal Confidentiality of Alcohol and Drug Abuse Patient Records regulations: The Federal rules restrict any use of the information to criminally investigate or prosecute any alcohol or drug abuse patient.[facility] CenterIn the event this information is protected by the Federal Confidentiality of Alcohol and Drug Abuse Patient Records regulations: The Federal rules restrict any use of the information to criminally investigate or prosecute any alcohol or drug abuse patient.[facility] CenterIn the event this information is protected by the Federal Confidentiality of Alcohol and Drug Abuse Patient Records regulations: The Federal rules restrict any use of the information to criminally investigate or prosecute any alcohol or drug abuse patient.[facility] CenterIn the event this information is protected by the Federal Confidentiality of Alcohol and Drug Abuse Patient Records regulations: The Federal rules restrict any use of the information to criminally investigate or prosecute any alcohol or drug abuse patient.[facility] CenterIn the event this information is protected by the Federal Confidentiality of Alcohol and Drug Abuse Patient Records regulations: The Federal rules restrict any use of the information to criminally investigate or prosecute any alcohol or drug abuse patient.[facility] CenterIn the event this information is protected by the Federal Confidentiality of Alcohol and Drug Abuse Patient Records regulations: The Federal rules restrict any use of the information to criminally investigate or prosecute any alcohol or drug abuse patient.[facility] CenterIn the event this information is protected by the Federal Confidentiality of Alcohol and Drug Abuse Patient Records regulations: The Federal rules restrict any use of the information to criminally investigate or prosecute any alcohol or drug abuse patient.[facility] CenterIn the event this information is protected by the Federal Confidentiality of Alcohol and Drug Abuse Patient Records regulations: The Federal rules restrict any use of the information to criminally investigate or prosecute any alcohol or drug abuse patient.[facility] CenterIn the event this information is protected by the Federal Confidentiality of Alcohol and Drug Abuse Patient Records regulations: The Federal rules restrict any use of the information to criminally investigate or prosecute any alcohol or drug abuse patient.[facility] CenterIn the event this information is protected by the Federal Confidentiality of Alcohol and Drug Abuse Patient Records regulations: The Federal rules restrict any use of the information to criminally investigate or prosecute any alcohol or drug abuse patient.[facility] CenterIn the event this information is protected by the Federal Confidentiality of Alcohol and Drug Abuse Patient Records regulations: The Federal rules restrict any use of the information to criminally investigate or prosecute any alcohol or drug abuse patient.[facility] CenterIn the event this information is protected by the Federal Confidentiality of Alcohol and Drug Abuse Patient Records regulations: The Federal rules restrict any use of the information to criminally investigate or prosecute any alcohol or drug abuse patient.[facility] CenterIn the event this information is protected by the Federal Confidentiality of Alcohol and Drug Abuse Patient Records regulations: The Federal rules restrict any use of the information to criminally investigate or prosecute any alcohol or drug abuse patient.[facility] CenterIn the event this information is protected by the Federal Confidentiality of Alcohol and Drug Abuse Patient Records regulations: The Federal rules restrict any use of the information to criminally investigate or prosecute any alcohol or drug abuse patient.[facility] CenterIn the event this information is protected by the Federal Confidentiality of Alcohol and Drug Abuse Patient Records regulations: The Federal rules restrict any use of the information to criminally investigate or prosecute any alcohol or drug abuse patient.[facility] CenterIn the event this information is protected by the Federal Confidentiality of Alcohol and Drug Abuse Patient Records regulations: The Federal rules restrict any use of the information to criminally investigate or prosecute any alcohol or drug abuse patient.[facility] CenterIn the event this information is protected by the Federal Confidentiality of Alcohol and Drug Abuse Patient Records regulations: The Federal rules restrict any use of the information to criminally investigate or prosecute any alcohol or drug abuse patient.[facility] CenterIn the event this information is protected by the Federal Confidentiality of Alcohol and Drug Abuse Patient Records regulations: The Federal rules restrict any use of the information to criminally investigate or prosecute any alcohol or drug abuse patient.[facility] CenterIn the event this information is protected by the Federal Confidentiality of Alcohol and Drug Abuse Patient Records regulations: The Federal rules restrict any use of the information to criminally investigate or prosecute any alcohol or drug abuse patient.[facility] CenterIn the event this information is protected by the Federal Confidentiality of Alcohol and Drug Abuse Patient Records regulations: The Federal rules restrict any use of the information to criminally investigate or prosecute any alcohol or drug abuse patient.[facility] CenterIn the event this information is protected by the Federal Confidentiality of Alcohol and Drug Abuse Patient Records regulations: The Federal rules restrict any use of the information to criminally investigate or prosecute any alcohol or drug abuse patient.[facility] CenterIn the event this information is protected by the Federal Confidentiality of Alcohol and Drug Abuse Patient Records regulations: The Federal rules restrict any use of the information to criminally investigate or prosecute any alcohol or drug abuse patient.[facility] CenterIn the event this information is protected by the Federal Confidentiality of Alcohol and Drug Abuse Patient Records regulations: The Federal rules restrict any use of the information to criminally investigate or prosecute any alcohol or drug abuse patient.[facility] CenterIn the event this information is protected by the Federal Confidentiality of Alcohol and Drug Abuse Patient Records regulations: The Federal rules restrict any use of the information to criminally investigate or prosecute any alcohol or drug abuse patient.[facility] CenterIn the event this information is protected by the Federal Confidentiality of Alcohol and Drug Abuse Patient Records regulations: The Federal rules restrict any use of the information to criminally investigate or prosecute any alcohol or drug abuse patient.[facility] CenterIn the event this information is protected by the Federal Confidentiality of Alcohol and Drug Abuse Patient Records regulations: The Federal rules restrict any use of the information to criminally investigate or prosecute any alcohol or drug abuse patient.[facility] CenterIn the event this information is protected by the Federal Confidentiality of Alcohol and Drug Abuse Patient Records regulations: The Federal rules restrict any use of the information to criminally investigate or prosecute any alcohol or drug abuse patient.[facility] CenterIn the event this information is protected by the Federal Confidentiality of Alcohol and Drug Abuse Patient Records regulations: The Federal rules restrict any use of the information to criminally investigate or prosecute any alcohol or drug abuse patient.[facility] CenterIn the event this information is protected by the Federal Confidentiality of Alcohol and Drug Abuse Patient Records regulations: The Federal rules restrict any use of the information to criminally investigate or prosecute any alcohol or drug abuse patient.[facility] CenterIn the event this information is protected by the Federal Confidentiality of Alcohol and Drug Abuse Patient Records regulations: The Federal rules restrict any use of the information to criminally investigate or prosecute any alcohol or drug abuse patient.[facility] CenterIn the event this information is protected by the Federal Confidentiality of Alcohol and Drug Abuse Patient Records regulations: The Federal rules restrict any use of the information to criminally investigate or prosecute any alcohol or drug abuse patient.[facility] CenterIn the event this information is protected by the Federal Confidentiality of Alcohol and Drug Abuse Patient Records regulations: The Federal rules restrict any use of the information to criminally investigate or prosecute any alcohol or drug abuse patient.[facility] CenterIn the event this information is protected by the Federal Confidentiality of Alcohol and Drug Abuse Patient Records regulations: The Federal rules restrict any use of the information to criminally investigate or prosecute any alcohol or drug abuse patient.[facility] CenterIn the event this information is protected by the Federal Confidentiality of Alcohol and Drug Abuse Patient Records regulations: The Federal rules restrict any use of the information to criminally investigate or prosecute any alcohol or drug abuse patient.[facility] CenterIn the event this information is protected by the Federal Confidentiality of Alcohol and Drug Abuse Patient Records regulations: The Federal rules restrict any use of the information to criminally investigate or prosecute any alcohol or drug abuse patient.[facility] CenterIn the event this information is protected by the Federal Confidentiality of Alcohol and Drug Abuse Patient Records regulations: The Federal rules restrict any use of the information to criminally investigate or prosecute any alcohol or drug abuse patient.[facility] CenterIn the event this information is protected by the Federal Confidentiality of Alcohol and Drug Abuse Patient Records regulations: The Federal rules restrict any use of the information to criminally investigate or prosecute any alcohol or drug abuse patient.[facility] CenterIn the event this information is protected by the Federal Confidentiality of Alcohol and Drug Abuse Patient Records regulations: The Federal rules restrict any use of the information to criminally investigate or prosecute any alcohol or drug abuse patient.[facility] CenterIn the event this information is protected by the Federal Confidentiality of Alcohol and Drug Abuse Patient Records regulations: The Federal rules restrict any use of the information to criminally investigate or prosecute any alcohol or drug abuse patient.[facility] CenterIn the event this information is protected by the Federal Confidentiality of Alcohol and Drug Abuse Patient Records regulations: The Federal rules restrict any use of the information to criminally investigate or prosecute any alcohol or drug abuse patient.[facility] CenterIn the event this information is protected by the Federal Confidentiality of Alcohol and Drug Abuse Patient Records regulations: The Federal rules restrict any use of the information to criminally investigate or prosecute any alcohol or drug abuse patient.[facility] CenterIn the event this information is protected by the Federal Confidentiality of Alcohol and Drug Abuse Patient Records regulations: The Federal rules restrict any use of the information to criminally investigate or prosecute any alcohol or drug abuse patient.[facility] CenterIn the event this information is protected by the Federal Confidentiality of Alcohol and Drug Abuse Patient Records regulations: The Federal rules restrict any use of the information to criminally investigate or prosecute any alcohol or drug abuse patient.[facility] CenterIn the event this information is protected by the Federal Confidentiality of Alcohol and Drug Abuse Patient Records regulations: The Federal rules restrict any use of the information to criminally investigate or prosecute any alcohol or drug abuse patient.[facility] CenterIn the event this information is protected by the Federal Confidentiality of Alcohol and Drug Abuse Patient Records regulations: The Federal rules restrict any use of the information to criminally investigate or prosecute any alcohol or drug abuse patient.[facility] CenterIn the event this information is protected by the Federal Confidentiality of Alcohol and Drug Abuse Patient Records regulations: The Federal rules restrict any use of the information to criminally investigate or prosecute any alcohol or drug abuse patient.[facility] CenterIn the event this information is protected by the Federal Confidentiality of Alcohol and Drug Abuse Patient Records regulations: The Federal rules restrict any use of the information to criminally investigate or prosecute any alcohol or drug abuse patient.[facility] CenterIn the event this information is protected by the Federal Confidentiality of Alcohol and Drug Abuse Patient Records regulations: The Federal rules restrict any use of the information to criminally investigate or prosecute any alcohol or drug abuse patient.[facility] CenterIn the event this information is protected by the Federal Confidentiality of Alcohol and Drug Abuse Patient Records regulations: The Federal rules restrict any use of the information to criminally investigate or prosecute any alcohol or drug abuse patient.[facility] CenterIn the event this information is protected by the Federal Confidentiality of Alcohol and Drug Abuse Patient Records regulations: The Federal rules restrict any use of the information to criminally investigate or prosecute any alcohol or drug abuse patient.[facility] CenterIn the event this information is protected by the Federal Confidentiality of Alcohol and Drug Abuse Patient Records regulations: The Federal rules restrict any use of the information to criminally investigate or prosecute any alcohol or drug abuse patient.[facility] CenterIn the event this information is protected by the Federal Confidentiality of Alcohol and Drug Abuse Patient Records regulations: The Federal rules restrict any use of the information to criminally investigate or prosecute any alcohol or drug abuse patient.[facility] CenterIn the event this information is protected by the Federal Confidentiality of Alcohol and Drug Abuse Patient Records regulations: The Federal rules restrict any use of the information to criminally investigate or prosecute any alcohol or drug abuse patient.[facility] CenterIn the event this information is protected by the Federal Confidentiality of Alcohol and Drug Abuse Patient Records regulations: The Federal rules restrict any use of the information to criminally investigate or prosecute any alcohol or drug abuse patient.[facility] CenterIn the event this information is protected by the Federal Confidentiality of Alcohol and Drug Abuse Patient Records regulations: The Federal rules restrict any use of the information to criminally investigate or prosecute any alcohol or drug abuse patient.[facility] CenterIn the event this information is protected by the Federal Confidentiality of Alcohol and Drug Abuse Patient Records regulations: The Federal rules restrict any use of the information to criminally investigate or prosecute any alcohol or drug abuse patient.[facility] CenterIn the event this information is protected by the Federal Confidentiality of Alcohol and Drug Abuse Patient Records regulations: The Federal rules restrict any use of the information to criminally investigate or prosecute any alcohol or drug abuse patient.[facility] CenterIn the event this information is protected by the Federal Confidentiality of Alcohol and Drug Abuse Patient Records regulations: The Federal rules restrict any use of the information to criminally investigate or prosecute any alcohol or drug abuse patient.[facility] CenterIn the event this information is protected by the Federal Confidentiality of Alcohol and Drug Abuse Patient Records regulations: The Federal rules restrict any use of the information to criminally investigate or prosecute any alcohol or drug abuse patient.[facility] CenterIn the event this information is protected by the Federal Confidentiality of Alcohol and Drug Abuse Patient Records regulations: The Federal rules restrict any use of the information to criminally investigate or prosecute any alcohol or drug abuse patient.[facility] CenterIn the event this information is protected by the Federal Confidentiality of Alcohol and Drug Abuse Patient Records regulations: The Federal rules restrict any use of the information to criminally investigate or prosecute any alcohol or drug abuse patient.[facility] CenterIn the event this information is protected by the Federal Confidentiality of Alcohol and Drug Abuse Patient Records regulations: The Federal rules restrict any use of the information to criminally investigate or prosecute any alcohol or drug abuse patient.[facility] CenterIn the event this information is protected by the Federal Confidentiality of Alcohol and Drug Abuse Patient Records regulations: The Federal rules restrict any use of the information to criminally investigate or prosecute any alcohol or drug abuse patient.[facility] CenterIn the event this information is protected by the Federal Confidentiality of Alcohol and Drug Abuse Patient Records regulations: The Federal rules restrict any use of the information to criminally investigate or prosecute any alcohol or drug abuse patient.[facility] CenterIn the event this information is protected by the Federal Confidentiality of Alcohol and Drug Abuse Patient Records regulations: The Federal rules restrict any use of the information to criminally investigate or prosecute any alcohol or drug abuse patient.[facility] CenterIn the event this information is protected by the Federal Confidentiality of Alcohol and Drug Abuse Patient Records regulations: The Federal rules restrict any use of the information to criminally investigate or prosecute any alcohol or drug abuse patient.[facility] CenterIn the event this information is protected by the Federal Confidentiality of Alcohol and Drug Abuse Patient Records regulations: The Federal rules restrict any use of the information to criminally investigate or prosecute any alcohol or drug abuse patient.[facility] CenterIn the event this information is protected by the Federal Confidentiality of Alcohol and Drug Abuse Patient Records regulations: The Federal rules restrict any use of the information to criminally investigate or prosecute any alcohol or drug abuse patient.[facility] CenterIn the event this information is protected by the Federal Confidentiality of Alcohol and Drug Abuse Patient Records regulations: The Federal rules restrict any use of the information to criminally investigate or prosecute any alcohol or drug abuse patient.[facility] CenterIn the event this information is protected by the Federal Confidentiality of Alcohol and Drug Abuse Patient Records regulations: The Federal rules restrict any use of the information to criminally investigate or prosecute any alcohol or drug abuse patient.[facility] CenterIn the event this information is protected by the Federal Confidentiality of Alcohol and Drug Abuse Patient Records regulations: The Federal rules restrict any use of the information to criminally investigate or prosecute any alcohol or drug abuse patient.[facility] CenterIn the event this information is protected by the Federal Confidentiality of Alcohol and Drug Abuse Patient Records regulations: The Federal rules restrict any use of the information to criminally investigate or prosecute any alcohol or drug abuse patient.[facility] CenterIn the event this information is protected by the Federal Confidentiality of Alcohol and Drug Abuse Patient Records regulations: The Federal rules restrict any use of the information to criminally investigate or prosecute any alcohol or drug abuse patient.[facility] CenterIn the event this information is protected by the Federal Confidentiality of Alcohol and Drug Abuse Patient Records regulations: The Federal rules restrict any use of the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
== END 2024-10-01 17:40 | disposition home or self-care (01) ==
LOC: FBC 10-02 05:41 → FBCO 10-04 10:19
PROVIDERS: Visit Provider Obstetrics & Gynecology
DX: O26.893 Other specified pregnancy related conditions, third trimester (principal)
CPT/HCPCS: 59025

== ENCOUNTER 2024-10-04 13:18 | Outpatient (OUT) | payer MEDICARE, MEDICAID, SELFPAY ==
--- NOTE | 2024-10-04 13:21 | US_ITS ---
[place] [id number] Patient Name: CAROL ANN ROMAN MRN: [id number] date: 1985 Sex: F Assigned Patient Location: [facility] Current Patient Location: Accession/Order Number: [id number] Exam Date: 10/04/2024 13:21 Report Date: 10/05/2024 06:36 At the request of: JOHN VERDIN Procedure: US OB cervical length EXAMINATION: US OB cervical length HISTORY: SHORT CERVIX COMPARISON: Ultrasound OB cervical length 09/21/2024 TECHNIQUE: Transabdominal and transvaginal sonographic examination for cervical length. FINDINGS: CERVIX LENGTH: 2.0 cm; closed. POSITION: Cephalic HEART RATE: Not evaluated Age by EDC: 36 weeks 5 days ELLIOTT by EDC: 10/27/2024 US/US OB cervical length IMPRESSION: 1.], Short cervix 2.0 cm in length. Stable compared to prior study. Electronically authenticated by: JAYME JACOBS Date: 10/05/2024 06:36
== END 2024-10-04 13:19 | disposition home or self-care (01) ==
LOC: NOMS 13:18
PROVIDERS: Visit Provider Obstetrics & Gynecology
DX: Z36.86 Encounter for antenatal screening for cervical length (principal); Z3A.36 36 weeks gestation of pregnancy
CPT/HCPCS: 76817

== ENCOUNTER 2024-10-04 20:34 | Outpatient (REF) | payer MEDICARE, MEDICAID, SELFPAY ==
--- OUTSIDE RECORDS SUMMARY | 2024-10-04 20:39 | XMS_ITS | CCD ---
Author Organization [facility] Care Team Providers Care Coat Check Attendant Name Role Phone NON, STAFF Primary Care [...] Care Provider DO Vishal Agarwal Emergency Provider [phone] Primary Care Provider Clarke Hu Attending Provider Janice Lane MD Primary Care Provider MD Janice Lane Primary Care Provider Clarke Hu Attending Provider [phone] MD Primary Care Provider [...] Unavailable Janice Lane Primary Care Unavailable [facility], [place] Unavailable Unavailable Janice Lane MD Primary Care Provider Deuce AWNING HANGER SUPERVISOR-BUS INSPECTOR, Nataly Amor Unavailable CLARKE HU Referring Unavailable [...] Care Unavailable IBAN LAZO Attending Unavailable JANICE ALNE Primary Care Unavailable JAJA, SUNJEET Referring Unavailable [...] Primary Care Unavailable TOR HERNANDEZ Referring Unavailable RIMAJANICE HOFFMAN Attending Unavailable JANICE LANE Primary Care [...] Other: See Comments, Unknown, Itching, GI Upset [facility] Soy (1 source) Soy protein Food Allergy 0 Intolerance [facility] Soybean Lecithin (1 source) Soybean Lecithin Drug Allergy 2 GI Upset, Unknown [facility] Wheat gluten extract (1 source) Wheat gluten extract Drug Allergy 9 Other: See Comments, Hives, Itching [facility] (2 sources) glutenin; Translations: [GLUTEN] Allergy to substance (finding) 9 [facility] Repository (17 sources) Soy protein; Translations: [SOY ALLERGY] Propensity to adverse reactions to drug (disorder) 0 Headache, Unknown [facility] Repository (17 sources) GLUTEN MEAL; Translations: [GLUTEN MEAL] Propensity to adverse reactions to drug (disorder) 9 Hives, Itching, Unknown [facility] Repository (1 source) LECITHIN ORGANIC-SOYBEAN LECITHIN; Translations: [LECITHIN ORGANIC-SOYBEAN LECITHIN] Propensity to adverse reactions to drug (disorder) 9 [facility] Repository (20 sources) Lecithin; Translations: [LECITHIN] Drug Allergy 9 Other: See Comments, Unknown, Itching, GI Upset, Nausea And Vomiting [facility] Work Phone: (20 sources) Soy protein; Translations: [SOY] Drug Intolerance 0 Intolerance [facility] (20 sources) Wheat gluten extract Drug Allergy 9 Other: See Comments, Hives, Itching [facility] (20 sources) Soybean Lecithin; Translations: [LECITHIN, SOY] Drug Allergy 2 GI Upset, Unknown [facility] (16 sources) Other Allergy to substance 0 Headache [facility] (1 source) ALLERGIES NOT ON FILE; Translations: [ALLERGIES NOT ON FILE] Propensity to adverse reactions (disorder) [facility] Medications Current Medications Medication Drug Class(es) [...] Comment on above: Take 1,000 mg [facility]. B Complex-C (b [...] Start: 04-09-2019 take 1 capsule by mo [facility] once daily Cholecalciferol (Vitamin D3) (Vitamin D3) 1,000 unit Capsule Active 1000 UNIT PO Daily April 09, 2019 12:00am take 1 [facility] cholecalciferol (Vitamin D3) 1.25 MG (93195 UT) tablet Take 1.25 mg by mouth once a week Active Comment on above: Take 1 capsule by mo [facility] one time a week. diphenhydrAMINE hydrochloride 25 [...] every week ergocalciferol (Vitamin D-2) 1.25 MG (27961 UT) capsule Take 50,000 Units by mouth once a week. 07/31/2023 Active Start: 08-08-2022 take 1 capsule by [facility] every week ergocalciferol 50,000 unit capsule (VITAMIN D2, DRISDOL) Take 1 capsule by mouth one time a week. 12 capsule 3 08/08/2022 Active Comment on above: Take 1 capsule by [facility] one time a week. ferrous sulfate 325 mg oral tablet (20 sources) Start: 02-13-2023 End: 03-15-2023 take 1 tablet by mouth once daily ferrous sulfate 325 mg (65 mg iron) tablet Indications: Iron deficiency anemia due to chronic blood loss Take 1 tablet by mouth once daily. 30 tablet 1 02/13/2023 03/15/2023 Active take 1 tablet by mouth in the mo [facility] Ferrous Sulfate (IRON PO) Take 1 tablet by mouth in the morning. Active FERROUS SULFATE ORAL Take by mouth every 24 hours. Active FERROUS SULFATE ORAL Take by mouth every 24 hours. 0 Active take 1 tablet by mouth in the mo [facility] Ferrous Sulfate (IRON PO) Take 1 tablet by mouth in the morning. 0 Active Comment on above: Take 1 tablet by [facility] once daily. Take by mouth every 24 hours. fluticasone propionate 0.05 mg/actuat metered dose nasal spray (20 sources) Corticosteroid Start: take 1 spray(s) nasal route once daily fluticasone (FLONASE) 50 mcg/actuation nasal spray Use 1 Lipan in each nostril once daily. 1 g 5 09/01/2020 Active Comment on above: Use 1 Lipan in each nostril once daily. 1 ml [...] 4 MG tablets Indications: MS (multiple sclerosis) (CMS/[facility]) Day 1: 6 tablets Day 2: 5 [...] by [facility] every 24 hours. Npenodemwxwu-Ltit-N olic Acid (1 source) Start: 04-09-2019 take 1 tablet by mouth once daily Multivitamin-Iron- Folic Acid Active 1 TAB Oral Daily April 09, 2019 12:28pm Cwtvxxwyznez-Abbt-O olic Acid (Multi-Day With Iron) 18-400 mg-mcg Tablet (5 sources) Start: 04-09-2019 take 1 tablet by mouth once daily Multivitamin-Iron- Folic Acid (Multi-Day With Iron) 18-400 mg-mcg Tablet Active 1 TAB PO Daily April 09, 2019 12:28pm Start: 04-09-2019 take 1 tablet by j[facility] once daily Vwqtgoazpiqs-Dukx-Bnxsf Acid (Multi-Day With Iron) 18-400 mg-mcg Tablet Active 1 TAB PO Daily April 09, 2019 12:00am Start: 04-09-2019 take 1 tablet by [facility] once daily Vvavnqjitbyw-Rpoj-Ifvno Acid (Multi-Day With Iron) 18-400 mg-mcg Tablet [...] 1 Drop (AK-DILATE, SABINA-SYNEPHRINE) polyethylene glycol 3350 78460 mg powder for oral solution (20 sources) Osmotic Laxative Start: 03-30-2024 End: 05-29-2024 polyethylene glycol 3350 (MIRALAX) 17 gram/dose powder Indications: Multiple sclerosis (HCC) , Constipation, unspecified constipation type Take 17 g by mouth once daily. Dissolve dose in 4 - 8 ounces of liquid and take as directed. 510 g 1 03/30/2024 05/29/2024 Active Start: 04-19-2021 End: 08-14-2022 polyethylene glycol 3350 (MN RALAX) 17 gram/dose powder Indications: Chronic idiopathic [...] ounces of liquid and take as directed. Mkijvojq-Vmb-Hm-FA (Jenliva / ) 1 MG capsule (12 sources) Ygrbiqyj-Sgs-Tm-FA (Jenliva /) 1 MG capsule Take by [...] every four to six hours Hydrocodone-Acetami nophen ([place]) 5-325 mg Tablet Discontinued 1 TAB PO [...] Take by mouth once d aily. Mag Axnbt-T8-Wkjrgbfw Rt Xt (6 sources) Vitamin D Start: 04-09-2019 End: 04-02-2022 Mag Wqevn-Y0-Ixbijylm Rt Xt Discontinued TABLET April 09, 2019 12:28pm April 02, 2022 5:24pm Start: 04-09-2019 Mag Oxide-D3-T urmeric Rt Xt Active April 09, 2019 12:28pm Start: 04-09-2019 End: 04-02-2022 Mag Nazug-P6-Sgjovrtd Rt Xt Discontinued TABLET April 09, 2019 12:00am April 02, 2022 5:24pm Start: 04-09-2019 End: 04-02-2022 Mag Nfivm-O9-Kcskrxvy Rt Xt Discontinued TABLET April 08, 2019 [...] 2019 12:00am April 02, 2022 5:23pm levonorgestrel 0.810863 mg/hr intrauterine system (6 sources) Progestin, Progestin-containing [...] on above: Take 1 capsule by mo [facility] DAILY (6 AM). Magnesium (20 sources) End: [...] Take 20 mEq by mouth as needed. 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)] Onset: 06-16-2024 Episodic Other complications of (2 [...] the nervous system complicating , third trimester ([facility])] Onset: 08-17-2024 Episodic Other complications of (2 sources) Maternal care for other abnormalities of cervix, third trimester; Translations: [Maternal care for other abnormalities of cervix, third trimester (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; Translations: [History of multiple sclerosis] Episodic [...] and damage, unspecified, not applicable or unspecified ([facility])] Onset: 06-14-2024 Episodic Other complications of (20 [...] Translations: [Supervision of elderly multigravida, second trimester ([facility])] Onset: 06-14-2024 Episodic Other complications of (2 sources) Diseases of the nervous system complicating , unspecified trimester; Translations: [Diseases of the nervous system complicating , unspecified trimester ([facility])] Onset: 06-14-2024 Episodic Other complications of (2 sources) Cervical shortening, second trimester; Translations: [Cervical shortening, second trimester ([facility])] Onset: 06-14-2024 Episodic Other endocrine disorders (20 [...] Test Name Value Interpretation Reference Range [facility] OT/PT/Speech Visit (LOPTRM) ----- CAROL ANN MARTINEZ ([id number]) 1985 F Date Time Provider Department 09/21/24 9:45 AM ESTRELLA SORTO Date Time Provider Department Center 09/21/2024 9:45 AM [id number] SORTO Reason for Visit: Physical Therapy [503] [...] (FLONASE) 50 mcg/actuation nasal spray Use 1 Lipan in each nostril once daily. Winder Operator: Therapy (PT/OT/Speech/Resp) ID: [id number] 09/21/2024 10:16 AM Author: ESTRELLA SORTO Signed by ESTRELLA SORTO PT, DPT on 09/21/2024 at 10:16 AM Document text: Program_ID:[id number] Access Code: [email or web address] URL: [email or web address] Date: 09-21-2024 Prepared By: Estrella Sorto Program [...] - 2 sets - 10 reps [facility] THERAPY NTon 09-21-2024 THERAPY NT HNO ID: [id number] Author: ESTRELLA SORTO, PT, DPT Service: ? Author Type: Physical Therapist Type: Therapy (PT/OT/Speech/Resp) Filed: 09/21/2024 10:16 Note Text: Program_ID:[id number] Access Code: [email or web address] URL: [email or web address] Date: 09-21-2024 Prepared By: Estrella Sorto Program [...] - 2 sets - 10 reps Normal [facility] OB FOLLOW UP TRANSABDOMIN AL APPROACHon 09-14-2024 [...] EFW (oz) 0 oz EFW by: Hadlock (MXB-MF-ND-FL) Extended Inspector Outside Production 1.6 mm Head / Face / Neck [...] Suboptimal view: limited by late gestational age [facility] Urinalysis macro (dipstick) panel (U)on 09-07-2024 Bilirubin, UA Negative Negative - 4(70) +++ mg/dL [facility] Blood, UA Negative Negative - 50 Delbert/mcL [facility] Clarity, UA Clear [facility] Color, UA Yellow [facility] Glucose, UA Negative Negative - 1999(110) ++++ mg/dL [facility] Interpretation and review of laboratory results Abnormal [facility] Ketones, UA Negative Negative - 160(16) ++++ mg/dL [facility] Leukocytes, UA Trace Negative - 500+++ Baltazar/mcL [facility] Nitrite, UA Negative Negative - Positive [facility] pH, UA 7 5 - 9 [facility] Protein, UA Negative Negative - 1999(20) ++++ mg/dL [facility] Spec Grav, UA 1.02 1 - 1.03 [facility] Urobilinogen, UA 0.2 0.2 - 12 mg/dL [facility] [id number] 09-03-2024 [id number] HNO ID: [id number] Author: ESTRELLA SORTO PT, DPT Service: ? Author Type: Physical Therapist Type: [id number] Filed: 09/03/2024 11:25 Note Text: [facility] Physical Therapy Plan of Care Certification Patient Name: Caro lAnn Martinez : 1985 [facility] #: [id number] Date: 09/03/2024 To: Janice Lane MD From [...] Goals for Episode of Care: established 09/03/24 [place] in home exercise program. Patient will decrease [...] Planned: 4 Planned Treatment Interventions: Therapeutic exercise (59979), Neuromuscular re-education (48191), Manual therapy (48992), Therapeutic activities (77930), Self-halfway management (86012), Gait Training (91359), Patient/Family/Caregiver Education PLAN FOR NEXT VISIT: Continue [...] reviewed the treatment plan for LIVIA Card# [id number] for the period of 09/03/24 -- 11/02/24, established on 09/03/2024. Signature certifies the need for therapy services. [facility] CNTHERAPYon 09-03-2024 CNTHERAPY OT/PT/Speech Visit (LOPTRM) ----- CAROL ANN MARTINEZ ([id number]) 1985 F Date Time Provider Department 09/03/24 8:45 AM ESTRELLA SORTO Date Time Provider Department Center 09/03/2024 8:45 AM [id number] SORTO Reason for Visit: PT Eval [747] [...] (FLONASE) 50 mcg/actuation nasal spray Use 1 Lipan in each nostril once daily. Winder Operator: Therapy (PT/OT/Speech/Resp) ID: [id number] 09/03/2024 9:22 AM Author: ESTRELLA SORTO Signed by ESTRELLA SORTO PT, DPT on 09/03/2024 at 9:22 AM Document text: Program_ID:[id number] Access Code: [email or web address] URL: [email or web address] Date: 09-03-2024 Prepared By: Estrella Sorto Program Notes Exercises - Seated Hip Adduction Isometrics with Ball - 1-3 x daily - 7 x weekly - 2-3 sets - 10 reps - Seated Hip Abduction with Resistance - 1-3 x daily - 7 x weekly - 2-3 sets - 10 reps [facility] THERAPY NTon 09-03-2024 THERAPY NT HNO ID: [id number] Author: ESTRELLA SORTO, PT, DPT Service: ? Author Type: Physical Therapist Type: Therapy (PT/OT/Speech/Resp) Filed: 09/03/2024 09:22 Note Text: Program_ID:[id number] Access Code: [email or web address] URL: [email or web address] Date: 09-03-2024 Prepared By: Estrella Sorto Program Notes Exercises - Seated Hip Adduction Isometrics with Ball - 1-3 x daily - 7 x weekly - 2-3 sets - 10 reps - Seated Hip Abduction with Resistance - 1-3 x daily - 7 x weekly - 2-3 sets - 10 reps [facility] Urinalysis macro (dipstick) panel (U)on 08-24-2024 Bilirubin, UA Negative Negative - 4(70) +++ mg/dL [facility] Blood, UA Negative Negative - 50 Delbert/mcL [facility] Clarity, UA Clear [facility] Color, UA Yellow [facility] Glucose, UA Negative Negative - 1999(110) ++++ mg/dL [facility] Interpretation and review of laboratory results Normal [facility] Ketones, UA Negative Negative - 160(16) ++++ mg/dL [facility] Leukocytes, UA Negative Negative - 500+++ Baltazar/mcL [facility] Nitrite, UA Negative Negative - Positive [facility] pH, UA 6.5 5 - 9 [facility] Protein, UA Negative Negative - 1999(20) ++++ mg/dL [facility] Spec Grav, UA 1.025 1 - 1.03 [facility] Urobilinogen, UA 0.2 0.2 - 12 mg/dL [facility] No Panel Informationon 08-17 Interpreted by: [...] care of your patient Follow-up ======== Per [facility] visit to follow, plan for serial [...] EFW (oz) 4 oz EFW by: Hadlock (IAM-SN-KB-FL) Extended Inspector Outside Production 3.4 mm Head / Face / Neck [...] Disorder, Cervical Shortening. History ====== General History Qhmggz089 cm Height (ft)5 ft Height (in)6 in Previous Outcomes Gravida2 Para1 Children born living ?37w1 Pregnancies delivered at term (T)1 Living children (L)1 Other:Vaginal Delivery Maternal Assessment Filhyb402 cm Height (ft)5 ft Height (in)6 in Ejjmyx01 kg Weight (lb)131 lb Weight gain0 kg Weight gain (lb)0 lb BMI21.14 kg/m Physical Exam Initial weight (lb)131 lb ========= Tony . Number of fetuses: 1 Dating ====== GA by prior w + 6 d ELLIOTT by prior [...] care of your patient Follow-up ======== Per [facility] visit to follow, plan for serial [...] (lb)3 lb EFW (oz)4 oz EFW by:Hadlock (GEX-RC-DM-FL) Extended Vp3.4 mm Head / Face / Neck Cephalic index0.77 24% Nicolaides Extremities / Bony Struc FL / BPD0.75 FL / HC0.20 FL / AC0.22 Other Structures BWT527 bpm Anatomy Cranium:Normal Lateral ventricles:Normal Midline falx:Normal [...] Disorder, Cervical Shortening. History ====== General History Sdiior841 cm Height (ft)5 ft Height (in)6 in Previous Outcomes Gravida2 Para1 Children born living ?37w1 Pregnancies delivered at term (T)1 Living children (L)1 Other:Vaginal Delivery Maternal Assessment Owrcov591 cm Height (ft)5 ft Height (in)6 in Qdljfz01 kg Weight (lb)131 lb Weight gain0 kg Weight gain (lb)0 lb BMI21.14 kg/m Physical Exam Initial weight (lb)131 lb ========= Tony . Number of fetuses: 1 Dating ====== GA by prior unvqtulnat64 w + 6 d ELLIOTT by prior [...] participate in the (more content not included)... [facility] Work Phone: Radiology Study observation (narrative) [facility] Work Phone: No Panel InformationOrdered By: Marina Ordoñez on 08-17-2024 [facility] Work Phone: POCT UA Automated manually r esultedon 08-17-2024 Appearance (U) Clear Clear [facility] Work Phone: Glucose Test strip (U) [Mass/Vol] Negative NEGATIVE mg/dl [facility] Work Phone: Hemoglobin Ql (U) Negative NEGATIVE [facility] Work Phone: Interpretation and review of laboratory results Normal [facility] Work Phone: Leukocyte esterase Test strip Ql (U) Negative NEGATIVE [facility] Work Phone: [phone] Nitrite Ql (U) Negative NEGATIVE [facility] Work Phone: pH (U) 7.0 [pH] No Reference Range Established [facility] Work Phone: [phone] POC Bilirubin, Urine Negative NEGATIVE [facility]: [phone] POC Color, Urine Yellow Straw, Yellow, Light-Yellow [facility] Work Phone: [phone] POC Ketones, Urine Negative NEGATIVE mg/dl [facility] Work Phone: [phone] POC Protein, Urine Negative NEGATIVE, 30 (1+) mg/dl [facility] Work Phone: POC Specific [place], Urine 1.025 1.005 - 1.035 [facility] Work Phone: POC Urobilinogen, Urine 0.2 0.2, 1.0 EU/DL [facility] Work Phone: [facility] Work Phone: US BIOPHYSICAL PROFILE WO NON [...] care of your patient Follow-up ======== Per [facility] visit to follow, plan for serial [...] EFW (oz) 4 oz EFW by: Hadlock (EXL-OF-SE-FL) Extended Inspector Outside Production 3.4 mm Head / Face / Neck [...] care of yo (more content not included)... [facility] US OB FOLLOW UP TRANSABDOMIN AL APPROACHon [...] care of your patient Follow-up ======== Per [facility] visit to follow, plan for serial [...] EFW (oz) 4 oz EFW by: Hadlock (GHA-DZ-BH-FL) Extended Inspector Outside Production 3.4 mm Head / Face / Neck [...] of yo (more content not included)... Normal [facility] Urinalysis macro (dipstick) panel (U)on 08-10-2024 Bilirubin, UA Negative Negative - 4(70) +++ mg/dL [facility] Blood, UA Negative Negative - 50 Delbert/mcL [facility] Clarity, UA Clear [facility] Color, UA Yellow [facility] Glucose, UA Negative Negative - 1999(110) ++++ mg/dL [facility] Interpretation and review of laboratory results Normal [facility] Ketones, UA Negative Negative - 160(16) ++++ mg/dL [facility] Leukocytes, UA Negative Negative - 500+++ Baltazar/mcL [facility] Nitrite, UA Negative Negative - Positive [facility] pH, UA 5.5 5 - 9 [facility] Protein, UA Negative Negative - 2000(20) ++++ mg/dL [facility] Spec Grav, UA 1.015 1 - 1.03 [facility] Urobilinogen, UA 1.0 0.2 - 12 mg/dL [facility] CBC W Auto Differential pane l (Bld)on 07-19-2024 Basophils (Bld) [#/Vol] 0.05 10*3/uL [facility] Comment on above: Order Comment: Speci men Type: BLOOD SPECIMENOrdering Facility: [facility] Address: [address] [place] [address] Performed By: #### 5 7021-8 ####[facility] LABCLIA [id number] [facility] [place] [address] [place] Basophils/100 WBC (Bld) 0.6 % [facility] Comment on above: Order Comment: Speci men Type: BLOOD SPECIMENOrdering Facility: [facility] Address: [address] [place] [address] Performed By: #### 5 7021-8 ####[facility] LABCLIA [id number] [place] [address] [place] Differential cell count method Nom (Bld) Auto [facility] Comment on above: Order Comment: Speci men Type: BLOOD SPECIMENOrdering Facility: [facility] Address: [address] [place] [address] Performed By: #### 5 7021-8 ####[facility] LABCLIA [id number] [place] [address] [place] Eosinophils (Bld) [#/Vol] 0.10 10*3/uL Normal <0.46 [facility] Comment on above: Order Comment: Speci men Type: BLOOD SPECIMENOrdering Facility: [facility] Address: [address] [place] [address] Performed By: #### 5 7021-8 ####[facility] LABCLIA [id number] [place] [address] [place] Eosinophils/100 WBC (Bld) 1.2 % [facility] Comment on above: Order Comment: Speci men Type: BLOOD SPECIMENOrdering Facility: [facility] Address: [address] [place] [address] Performed By: #### 5 7021-8 ####[facility] LABCLIA [id number] [place] [address] [place] Erythrocyte distribution width (RBC) [Ratio] 14.7 % Normal 11.5-15.0 [facility] Comment on above: Order Comment: Speci men Type: BLOOD SPECIMENOrdering Facility: [facility] Address: [address] [place] [address] Performed By: #### 5 7021-8 ####[facility] LABIA [id number] [place] [address] [place] Hematocrit (Bld) [Volume fraction] 39.3 % Normal 36.0-46.0 [facility] Comment on above: Order Comment: Speci men Type: BLOOD SPECIMENOrdering Facility: [facility] Address: [address] [place] [address] Performed By: #### 5 7021-8 ####[facility] LABIA [id number] [place] [address] [place] Hemoglobin (Bld) [Mass/Vol] 12.4 g/dL Normal 11.5-15.5 [facility] Comment on above: Order Comment: Speci men Type: BLOOD SPECIMENOrdering Facility: [facility] Address: [address] [place] [address] Performed By: #### 5 7021-8 ####[facility] LABIA [id number] [place] [address] [place] Immature granulocytes (Bld) [#/Vol] 0.04 10*3/uL Normal <0.10 [facility] Comment on above: Order Comment: Speci men Type: BLOOD SPECIMENOrdering Facility: [facility] Address: [address] [place] [address] Performed By: #### 5 7021-8 ####[facility] LABIA [id number] [place] [address] [place] Immature granulocytes/100 WBC (Bld) 0.5 % [facility] Comment on above: Order Comment: Speci men Type: BLOOD SPECIMENOrdering Facility: [facility] Address: [address] [place] [address] Performed By: #### 5 7021-8 ####[facility] LABCLIA [id number] [place] [address] [place] Lymphocytes (Bld) [#/Vol] 1.58 10*3/uL Normal 1.00-4.00 [facility] Comment on above: Order Comment: Speci men Type: BLOOD SPECIMENOrdering Facility: [facility] Address: [address] [place] [address] Performed By: #### 5 7021-8 ####[facility] LABCLIA [id number] [place] [address] [place] Lymphocytes/100 WBC (Bld) 19.1 % [facility] Comment on above: Order Comment: Speci men Type: BLOOD SPECIMENOrdering Facility: [facility] Address: [address] [place] [address] Performed By: #### 5 7021-8 ####[facility] LABCLIA [id number] [place] [address] [place] MCH (RBC) [Entitic mass] 27.1 pg Normal 26.0-34.0 [facility] Comment on above: Order Comment: Speci men Type: BLOOD SPECIMENOrdering Facility: [facility] Address: [address] [place] [address] Performed By: #### 5 7021-8 ####[facility] LABCLIA [id number] [place] [address] [place] MCHC (RBC) [Mass/Vol] 31.6 g/dL Normal 30.5-36.0 [facility] Comment on above: Order Comment: Speci men Type: BLOOD SPECIMENOrdering Facility: [facility] Address: [address] [place] [address] Performed By: #### 5 7021-8 ####[facility] LABCLIA [id number] [place] [address] [place] MCV (RBC) [Entitic vol] 86.0 fL Normal 80.0-100.0 [facility] Comment on above: Order Comment: Speci men Type: BLOOD SPECIMENOrdering Facility: [facility] Address: [address] [place] [address] Performed By: #### 5 7021-8 ####[facility] LABCLIA [id number] [place] [address] [place] Monocytes (Bld) [#/Vol] 0.58 10*3/uL Normal <0.87 [facility] Comment on above: Order Comment: Speci men Type: BLOOD SPECIMENOrdering Facility: [facility] Address: [address] [place] [address] Performed By: #### 5 7021-8 ####[facility] LABIA [id number] [place] [address] [place] Monocytes/100 WBC (Bld) 7.0 % [facility] Comment on above: Order Comment: Speci men Type: BLOOD SPECIMENOrdering Facility: [facility] Address: [address] [place] [address] Performed By: #### 5 7021-8 ####[facility] LABCLIA [id number] [place] [address] [place] Neutrophils (Bld) [#/Vol] 5.91 10*3/uL Normal 1.45-7.50 [facility] Comment on above: Order Comment: Speci men Type: BLOOD SPECIMENOrdering Facility: [facility] Address: [address] [place] [address] Performed By: #### 5 7021-8 ####[facility] LABCLIA [id number] [place] [address] [place] Neutrophils/100 WBC (Bld) 71.6 % [facility] Comment on above: Order Comment: Speci men Type: BLOOD SPECIMENOrdering Facility: [facility] Address: [address] [place] [address] Performed By: #### 5 7021-8 ####[facility] LABCLIA [id number] [place] [address] [place] Nucleated RBC (Bld) [#/Vol] 10*3/uL Normal <0.01 [facility] Comment on above: Order Comment: Speci men Type: BLOOD SPECIMENOrdering Facility: [facility] Address: [address] [place] [address] Performed By: #### 5 7021-8 ####[facility] LABCLIA [id number] [place] [address] [place] Nucleated RBC/100 WBC (Bld) [Ratio] 0.0 /100 WBC [facility] Comment on above: Order Comment: Speci men Type: BLOOD SPECIMENOrdering Facility: [facility] Address: [address] [place] [address] Performed By: #### 5 7021-8 ####[facility] LABCLIA [id number] [place] [address] [place] Platelet mean volume (Bld) [Entitic vol] 13.2 fL High 9.0-12.7 [facility] Comment on above: Order Comment: Speci men Type: BLOOD SPECIMENOrdering Facility: [facility] Address: [address] [place] [address] Performed By: #### 5 7021-8 ####[facility] LABCLIA [id number] [place] [address] [place] Platelets (Bld) [#/Vol] 187 10*3/uL Normal 150-400 [facility] Comment on above: Order Comment: Speci men Type: BLOOD SPECIMENOrdering Facility: [facility] Address: [address] [place] [address] Performed By: #### 5 7021-8 ####[facility] LABIA [id number] [place] [address] [place] RBC (Bld) [#/Vol] 4.57 10*6/uL Normal 3.90-5.20 [facility] Comment on above: Order Comment: Speci men Type: BLOOD SPECIMENOrdering Facility: [facility] Address: [address] [place] [address] Performed By: #### 5 7021-8 ####[facility] LABIA [id number] [place] [address] [place] WBC (Bld) [#/Vol] 8.26 10*3/uL Normal 3.70-11.00 [facility] Comment on above: Order Comment: Speci men Type: BLOOD SPECIMENOrdering Facility: [facility] Address: [address] [place] [address] Performed By: #### 5 7021-8 ####[facility] LABIA [id number] [place] [address] [place] CNOVon 07-19-2024 CNOV Office Visit ([facility] ) ----- CAROL ANN MARTINEZ ([id number]) 1985 F Date Time Provider Department 07/19/24 12:[address] [facility] During your visit today, we [...] the hip. She is not taken anything vcls-xal-uscwtug for it. Patient has multiple sclerosis. Her [...] few seconds when she was on a jeapl-vt-yawmi with her daughter. She told her [employer] about the symptoms she has started to [...] GENERAL APPEAR (more content not included)... [facility] Comprehensive metabolic 2000 panelon 07-19-2024 Albumin [Mass/Vol] 3.7 g/dL Low 3.9-4.9 [facility] Comment on above: Order Comment: Speci men Type: BLOOD SPECIMENOrdering Facility: [facility] Address: [address] [place] [address] Performed By: #### 2 4323-8, 2275- ####[facility] LABCLIA [id number] [place] [address] [place] ALP [Catalytic activity/Vol] 62 U/L Normal 34-123 [facility] Comment on above: Order Comment: Speci men Type: BLOOD SPECIMENOrdering Facility: [facility] Address: [address] [place] [address] Performed By: #### 2 4323-8, 2276-02 ####[facility] LABCLIA [id number] [place] [address] [place] ALT [Catalytic activity/Vol] 15 U/L Normal 7-38 [facility] Comment on above: Order Comment: Speci men Type: BLOOD SPECIMENOrdering Facility: [facility] Address: [address] [place] [address] Performed By: #### 2 4323-8, 2276-02 ####[facility] LABCLIA [id number] [place] [address] [place] Anion gap [Moles/Vol] 10 mmol/L Normal 8-15 [facility] Comment on above: Order Comment: Speci men Type: BLOOD SPECIMENOrdering Facility: [facility] Address: [address] [place] [address] Performed By: #### 2 4323-8, 2275- ####[facility] LABCLIA [id number] [place] [id number] [place] AST [Catalytic activity/Vol] 18 U/L Normal 13-35 [facility] Comment on above: Order Comment: Speci men Type: BLOOD SPECIMENOrdering Facility: [facility] Address: [address] [place] [address] Performed By: #### 2 4323-8, 2276-02 ####[facility] LABCLIA [id number] [place] [address] [place] Bilirubin [Mass/Vol] 0.4 mg/dL Normal 0.2-1.3 [facility] Comment on above: Order Comment: Speci men Type: BLOOD SPECIMENOrdering Facility: [facility] Address: [address] [place] [address] Performed By: #### 2 4323-8, 2276-02 ####[facility] LABCLIA [id number] [place] [address] [place] Calcium [Mass/Vol] 9.4 mg/dL Normal 8.5-10.2 [facility] Comment on above: Order Comment: Speci men Type: BLOOD SPECIMENOrdering Facility: [facility] Address: [address] [place] [address] Performed By: #### 2 4323-8, 2276-02 ####[facility] LABCLIA [id number] [place] [address] [place] Chloride [Moles/Vol] 104 mmol/L Normal 98-107 [facility] Comment on above: Order Comment: Speci men Type: BLOOD SPECIMENOrdering Facility: [facility] Address: [address] [place] [address] Performed By: #### 2 4323-8, 2276-02 ####[facility] LABCLIA [id number] [place] [address] [place] CO2 [Moles/Vol] 22 mmol/L Normal 22-30 [facility] Comment on above: Order Comment: Speci men Type: BLOOD SPECIMENOrdering Facility: [facility] Address: [address] [place] [address] Performed By: #### 2 4323-8, 2275-4 ####[facility] LABIA [id number] [place] [address] [place] Creatinine [Mass/Vol] 0.62 mg/dL Normal 0.58-0.96 [facility] Comment on above: Order Comment: Speci men Type: BLOOD SPECIMENOrdering Facility: [facility] Address: [address] [place] [address] Performed By: #### 2 4323-8, 2275-4 ####[facility] [id number] [place] [address] [place] Creatinine and Glomerular filtration rate.predicted panel (S/P/Bld) 117 mL/min/1.73m??? Normal >=60 [facility] Comment on above: Order Comment: Rylee men Type: BLOOD SPECIMENOrdering Facility: [facility] Address: [address] [place] [address] Result Comment: Priscila mated Glomerular Filtration Rate [...] GFR. Performed By: #### 2 4323-8, 2275- ####[facility] LABIA [id number] [place] [id number] [place] Glucose [Mass/Vol] 58 mg/dL Low 74-99 [facility] Comment on above: Order Comment: Speci men Type: BLOOD SPECIMENOrdering Facility: [facility] Address: [address] [place] [address] Result Comment: The [place] Diabetes Association (ADA) provides guidance for cutoff [...] Standards of Medical Care in Diabetes 2016, [place] [employer]. Diabetes Care. 2016.39(Suppl 1). Performed By: #### 2 432-8, 2276-02 ####[facility] LABCLIA [id number] [place] [address] [place] Potassium [Moles/Vol] 3.9 mmol/L Normal 3.7-5.1 [facility] Comment on above: Order Comment: Speci men Type: BLOOD SPECIMENOrdering Facility: [facility] Address: [address] [place] [address] Performed By: #### 2 4323-06, 2276-02 ####[facility] LABCLIA [id number] [place] [address] [place] Protein [Mass/Vol] 7.1 g/dL Normal 6.3-8.0 [facility] Comment on above: Order Comment: Speci men Type: BLOOD SPECIMENOrdering Facility: [facility] Address: [address] [place] [address] Performed By: #### 2 4328, 2276-02 ####[facility] LABCLIA [id number] [facility] [place] [id number] [place] Sodium [Moles/Vol] 136 mmol/L Normal 136-144 [facility] Comment on above: Order Comment: Speci men Type: BLOOD SPECIMENOrdering Facility: [facility] Address: [address] [place] [address] Performed By: #### 2 4323-8, 2276-02 ####[facility] LABCLIA [id number] [place] [id number] [place] Urea nitrogen [Mass/Vol] 8 mg/dL Normal 7-21 [facility] Comment on above: Order Comment: Speci men Type: BLOOD SPECIMENOrdering Facility: [facility] Address: [address] [place] [address] Performed By: #### 2 4323-8, 2276-4 ####[facility] LABCLIA [id number] [place] [id number] [place] Ferritin SerPl-mCncon 2023 Ferritin [Mass/Vol] 36.5 ng/mL Normal 14.7-205.1 [facility] Comment on above: Order Comment: Specjoshau chauhan Type: BLOOD SPECIMENOrdering Facility: [facility] Address: [address] [place] [address] Performed By: #### 2 4323-8, 2276-4 ####[facility] LABCLIA [id number] [place] [id number] [place] POLYSOMNOGRAM (PSG)/HOME SLE EP APNEA TEST (HSAT)on 07-03-2024 POLYSOMNOGRAM (PSG)/HOME SLEEP APNEA TEST (HSAT) [facility] at [address], [address] [address] ; Home Sleep Apnea Test (HSAT) Study Report Name: CAROL ANN MARTINEZ Date of Study: 07/03/2024 [facility]#: [id number] Age: 38 (: 1985) ESS: 0/24 Neck [...] Pertinent medical history: Hypothyroidism, Seizures, MS Medications: [facility] Sleep procedure: PSG unattended Type III, minimum of 4 parameters (58734) Procedure: This study was performed using a Type III ambulatory PSG device and was unattended. The patient was instructed on proper use of the device by a registered instructional technologist. The monitored parameters included heart rate, [...] By: Sam Damon (07/08/2024 4:02:15 PM) Normal [facility] OB LIMITED 1+ FETUSESon 0 07-02-2024 OB [...] Uterus: Visualiz (more content not included)... Normal [facility] OB TRANSVAGINALon 024 OB TRANSVAGINAL [...] Uterus: Visualiz (more content not included)... Normal [facility] CNCOon 06-21-2024 CNCO Letter Text Normal [facility] OB DETAIL ANATOMYon 06-14-2024 OB DETAIL ANATOMY [...] EFW (oz) 14 oz EFW by: Hadlock ([id number]-GG-FQ-FL) Extended Inspector Outside Production 5.9 mm CM 3.2 mm 4% Nicolaides [...] Normal LVOT view: Normal 3-vessel view: Normal 1-vnyumw-xcyexfp view: Normal Heart / Thorax Situs: situs [...] Lt neha (more content not included)... Normal [facility] OB TRANSVAGINALon 024 OB TRANSVAGINAL [...] EFW (oz) 14 oz EFW by: Hadlock ([id number]-KY-FL) Extended Inspector Outside Production 5.9 mm CM 3.2 mm 4% Nicolaides [...] Normal LVOT view: Normal 3-vessel view: Normal 0-yzteed-yonozvk view: Normal Heart / Thorax Situs: situs [...] Normal Lt neha (more content not included)... [facility] Christiano 06-11-2024 PAIGE Telephone ([facility]) ----- CAROL ANN MARTINEZ ([id number]) 1985 F Date Time Provider Department 06/11/24 CHAMP BAXTER During your visit today, we recorded the following information about you: Champ Baxter LSW 06/11/2024 9:25 AM Signed This DEZ put in a referral to the [facility] for pt to get connected to additional resources. DEZ Archer, [facility] Social Work Allergies As of Date: 06/11/2024 [...] Date Reviewed: 06/09/2024 Reviewed by: Tor Hernandez APRN.BUS INSPECTOR - Fully Assessed Reason for Visit: Carpenter Form - Other [9202] Prescriptions as of 06/11/2024 - OTC NUTRITIONAL [...] (FLONASE) 50 mcg/actuation nasal spray Use 1 Lipan in each nostril once daily. Problem List [...] Status:Closed by CHAMP BAXTER on 06/11/24 [facility] Christiano 03-24-2024 CNPN Telephone ([facility]) ----- CAROL ANN MARTINEZ ([id number]) 1985 F Date Time Provider Department 03/24/24 [...] Date Reviewed: 01/19/2024 Reviewed by: Kaitlyn Forbes, loss prevention/safety district manager - Fully Assessed Reason for Visit: Appointment [...] (FLONASE) 50 mcg/actuation nasal spray Use 1 Lipan in each nostril once daily. Problem List [...] Status:Closed by VIVIANA SANDS on 03/24/24 [facility] HCG,Quantitativeon 4 HCG,Quantitative 530204.00 m[iU]/mL Normal [facility] Comment on above: Result Comment: Appr oximate Approximate hCG Gestational Age Range (mIU/ml) (weeks) 0.2-1 5-50 1-2 50-500 2-3 100-5,000 3-4 500-10,000 4-5 1,000-50,000 5-6 10,000-100,000 6-8 15,000-200,000 8-12 10,000-100,000 PERFORMED BY: [place] [address] PATHOLOGIST [employer] ALEN PRICE M.D. Performed By: #### H CGQNT #### [address] US breast BI limitedon 03-17 US breast BI limited [facility] [address] [place] [id number] Mammography Report Signed Patient: Carol Ann Martinez MR#: [id number] : 1985 Acct:[id number] Age/Sex: 38 / F ADM Date: 03/17/24 Loc: [place] Room: Type: [facility] Attending Dr: Clarke Hu Copies to: Clarke Lane MD Ordering Provider: Clarke Hu Date of Service: 03/17/24 MM/MM diagnostic mammo BI w/CAD: RT BREAST LUMP ([id number]) US/US breast BI limited: BILATERAL BREAST LUMPS [...] Renetta Chin M.D.03/17/2024 9:57 AM Dictation Location: [facility] Transcribed By: MEGHANN 03/17/24 0957 Dictated By: Renetta Chin II, MD 03/17/24 0923 Signed By: 03/17/24 0957 Normal [facility] XR Cervical spine AP and Lat eral and obliqueon 03-08-2024 IMPRESSION: No acute osseous abnormality. Preserved cervical disc spaces and neural foramina. Data Warehouse Specialist: ANGEL Transcribe Date/Time: Mar 08 2024 4:48P Dictated by : VIKTORIYA WALTER MD This examination was interpreted and the report reviewed and electronically signed by: VIKTORIYA WALTER MD on Mar 08 2024 4:50PM [facility] DIVISION OF RADIOLOGY * * *Final [...] to the patient. DIVISION OF RADIOLOGY Provider, [facility] - 03/08/2024 * * *Final [...] Preserved cervical disc spaces and neural foramina. Data Warehouse Specialist: ANGEL Transcribe Date/Time: Mar 08 2024 4:48P Dictated by : VIKTORIYA WALTER MD This examination was interpreted and the report reviewed and electronically signed by: VIKTORIYA WALTER MD on Mar 08 2024 4:50PM [facility] XR Lumbar spine 3 Viewson IMPRESSION: Unremarkable radiographic appearance of the lumbar spine. Data Warehouse Specialist: PSCB Transcribe Date/Time: Mar 08 2024 4:47P Dictated by : VIKTORIYA WALTER MD This examination was interpreted and the report reviewed and electronically signed by: VIKTORIYA WALTER MD on Mar 08 2024 4:48PM [facility] DIVISION OF RADIOLOG[facility] * * *Final [...] Unremarkable radiographic appearance of the lumbar spine. Data Warehouse Specialist: PSCB Transcribe Date/Time: Mar 08 2024 4:47P Dictated by : VIKTORIYA WALTER MD This examination was interpreted and the report reviewed and electronically signed by: VIKTORIYA WALTER MD on Mar 08 2024 4:48PM [facility] XR Lumbar spine 3 ViewsOrder ed By: Ccf Provider on 03-08-2024 [facility] ESR Westergren method (Bld) [Velocity]on 03-05-2024 ESR (Bld) [Velocity] 5 mm/h [facility] Interpretation and review of laboratory results Normal [facility] JOSSELIN BY IFA WITH REFLEXon Nuclear Ab Ql (S) Negative Normal Negative [facility] Comment on above: Order Comment: Speci men Type: BLOOD SPECIMENOrdering Facility: [facility] Address: [address] [place] [address] Result Comment: Anti -nuclear antibody test is used as an aid in diagnosis of systemic autoimmune diseases. Where positive and clinically warranted, follow-up using disease-specific testing is recommended. Low positive titers are not uncommon with advanced age, certain chronic infections, and malignancies among others. Test methodology: Indirect fluorescence immunoassay (IFA) using HEp-2 cells. Performed By: #### A NAIFR ####[facility] LABCLIA [id number] [place] [address] [place] CBC W Auto Differential pane l (Bld)on 03-04-2024 Basophils (Bld) [#/Vol] 0.04 10*3/uL [facility] Basophils/100 WBC (Bld) 0.5 % [facility] Differential cell count method Nom (Bld) Auto [facility] Eosinophils (Bld) [#/Vol] [facility] Eosinophils/100 WBC (Bld) 0.3 % [facility] Erythrocyte distribution width (RBC) [Ratio] 15.2 % High 11.5 - 15.0 % [facility] Hematocrit (Bld) [Volume fraction] 40.1 % 36.0 - 46.0 % [facility] Hemoglobin (Bld) [Mass/Vol] 12.4 g/dL 11.5 - 15.5 g/dL [facility] Immature granulocytes (Bld) [#/Vol] [facility] Immature granulocytes/100 WBC (Bld) 0.3 % [facility] Interpretation and review of laboratory results Abnormal [facility] Lymphocytes (Bld) [#/Vol] 1.62 10*3/uL [facility] Lymphocytes/100 WBC (Bld) 21.7 % [facility] MCH (RBC) [Entitic mass] 24.1 pg Low 26.0 - 34.0 pg [facility] MCHC (RBC) [Mass/Vol] 30.9 g/dL 30.5 - 36.0 g/dL [facility] MCV (RBC) [Entitic vol] 77.9 fL Low 80.0 - 100.0 fL [facility] Monocytes (Bld) [#/Vol] 0.69 10*3/uL [facility] Monocytes/100 WBC (Bld) 9.2 % [facility] Neutrophils (Bld) [#/Vol] 5.08 10*3/uL [facility] Neutrophils/100 WBC (Bld) 68.0 % [facility] Nucleated RBC (Bld) [#/Vol] [facility] Nucleated RBC/100 WBC (Bld) [Ratio] 0.0 % /100 WBC [facility] Platelet mean volume (Bld) [Entitic vol] [facility] Comment on above: Unable to Report. Platelets (Bld) [#/Vol] 185 10*3/uL [facility] Comment on above: Results checked and verified.No clot detected. RBC (Bld) [#/Vol] 5.15 10*6/uL 3.90 - 5.2 0 m/uL [facility] WBC (Bld) [#/Vol] 7.47 10*3/uL [facility] This is an appended report. These results have been appended to a previously verified report. [facility] Basophils (Bld) [#/Vol] 0.04 10*3/uL Normal <0.11 [facility] Comment on above: Order Comment: Speci men Type: BLOOD SPECIMENOrdering Facility: [facility] Address: [address] [place] [address] Performed By: #### 5 7021-8, 4536-7 ####[facility] LABCLIA [id number] [facility] [place] [address] [place] Basophils/100 WBC (Bld) 0.5 % [facility] Comment on above: Order Comment: Speci men Type: BLOOD SPECIMENOrdering Facility: [facility] Address: [address] [place] [address] Performed By: #### 5 7021-8, 4537-7 ####[facility] LABCLIA [id number] [facility] [place] [address] [place] Differential cell count method Nom (Bld) Auto Normal [facility] Comment on above: Order Comment: Speci men Type: BLOOD SPECIMENOrdering Facility: [facility] Address: [address] [place] [address] Performed By: #### 5 7021-8, 7-7 ####[facility] LABCLIA [id number] [facility] [place] [address] [place] Eosinophils (Bld) [#/Vol] 10*3/uL Normal <0.46 [facility] Comment on above: Order Comment: Speci men Type: BLOOD SPECIMENOrdering Facility: [facility] Address: [address] [place] [address] Performed By: #### 5 7021-8, 7-7 ####[facility] LABCLIA [id number] [facility] [place] [address] [place] Eosinophils/100 WBC (Bld) 0.3 % Normal [facility] Comment on above: Order Comment: Speci men Type: BLOOD SPECIMENOrdering Facility: [facility] Address: [address] [place] [address] Performed By: #### 5 7021-8, 4536-7 ####[facility] LABIA [id number] [place] [address] [place] Erythrocyte distribution width (RBC) [Ratio] 15.2 % High 11.5-15.0 [facility] Comment on above: Order Comment: Speci men Type: BLOOD SPECIMENOrdering Facility: [facility] Address: [address] [place] [address] Performed By: #### 5 7021-8, 453-7 ####[facility] LABCLIA [id number] [place] [address] [place] Hematocrit (Bld) [Volume fraction] 40.1 % Normal 36.0-46.0 [facility] [facility] Comment on above: Order Comment: Speci men Type: BLOOD SPECIMENOrdering Facility: [facility] Address: [address] [place] [address] Performed By: #### 5 7021-8, 4536-7 ####[facility] LABIA [id number] [place] [address] [place] Hemoglobin (Bld) [Mass/Vol] 12.4 g/dL Normal 11.5-15.5 [facility] Comment on above: Order Comment: Speci men Type: BLOOD SPECIMENOrdering Facility: [facility] Address: [address] [place] [address] Performed By: #### 5 7021-8, 7-7 ####[facility] LABCLIA [id number] [place] [address] [place] Immature granulocytes (Bld) [#/Vol] 10*3/uL Normal <0.10 [facility] Comment on above: Order Comment: Speci men Type: BLOOD SPECIMENOrdering Facility: [facility] Address: [address] [place] [address] Performed By: #### 5 7021-8, 4536-7 ####[facility] LABCLIA [id number] [place] [address] [place] Immature granulocytes/100 WBC (Bld) 0.3 % [facility] Comment on above: Order Comment: Speci men Type: BLOOD SPECIMENOrdering Facility: [facility] Address: [address] [place] [address] Performed By: #### 5 7021-8, 4536-7 ####[facility] LABCLIA [id number] [place] [address] [place] Lymphocytes (Bld) [#/Vol] 1.62 10*3/uL Normal 1.00-4.00 [facility] Comment on above: Order Comment: Speci men Type: BLOOD SPECIMENOrdering Facility: [facility] Address: [address] [place] [address] Performed By: #### 5 7021-8, 4536-7 ####[facility] LABCLIA [id number] [place] [address] [place] Lymphocytes/100 WBC (Bld) 21.7 % [facility] Comment on above: Order Comment: Speci men Type: BLOOD SPECIMENOrdering Facility: [facility] Address: [address] [place] [address] Performed By: #### 5 7021-8, 4536-7 ####[facility] LABCLIA [id number] [place] [address] [place] MCH (RBC) [Entitic mass] 24.1 pg Low 26.0-34.0 [facility] Comment on above: Order Comment: Speci men Type: BLOOD SPECIMENOrdering Facility: [facility] Address: [address] [place] [address] Performed By: #### 5 7021-8, 4536-7 ####[facility] LABIA [id number] [place] [address] [place] MCHC (RBC) [Mass/Vol] 30.9 g/dL Normal 30.5-36.0 [facility] Comment on above: Order Comment: Speci men Type: BLOOD SPECIMENOrdering Facility: [facility] Address: [address] [place] [address] Performed By: #### 5 7021-8, 4537-7 ####[facility] LABIA [id number] [place] [address] [place] MCV (RBC) [Entitic vol] 77.9 fL Low 80.0-100.0 [facility] Comment on above: Order Comment: Speci men Type: BLOOD SPECIMENOrdering Facility: [facility] Address: [address] [place] [address] Performed By: #### 5 7021-8, 453-7 ####[facility] LABIA [id number] [place] [address] [place] Monocytes (Bld) [#/Vol] 0.69 10*3/uL Normal <0.87 [facility] Comment on above: Order Comment: Speci men Type: BLOOD SPECIMENOrdering Facility: [facility] Address: [address] [place] [address] Performed By: #### 5 7021-8, 4536-7 ####[facility] LABIA [id number] [place] [address] [place] Monocytes/100 WBC (Bld) 9.2 % [facility] Comment on above: Order Comment: Speci men Type: BLOOD SPECIMENOrdering Facility: [facility] Address: [address] [place] [address] Performed By: #### 5 7021-8, 4537-7 ####[facility] LABIA [id number] [place] [address] [place] Neutrophils (Bld) [#/Vol] 5.08 10*3/uL Normal 1.45-7.50 [facility] Comment on above: Order Comment: Speci men Type: BLOOD SPECIMENOrdering Facility: [facility] Address: [address] [place] [address] Performed By: #### 5 7021-8, 4536-7 ####[facility] LABCLIA [id number] [place] [address] [place] Neutrophils/100 WBC (Bld) 68.0 % [facility] Comment on above: Order Comment: Speci men Type: BLOOD SPECIMENOrdering Facility: [facility] Address: [address] [place] [address] Performed By: #### 5 7021-8, 4536-7 ####[facility] LABCLIA [id number] [place] [address] [place] Nucleated RBC (Bld) [#/Vol] 10*3/uL Normal <0.01 [facility] Comment on above: Order Comment: Speci men Type: BLOOD SPECIMENOrdering Facility: [facility] Address: [address] [place] [address] Performed By: #### 5 7021-8, 4536-7 ####[facility] LABCLIA [id number] [place] [address] [place] Nucleated RBC/100 WBC (Bld) [Ratio] 0.0 /100 WBC [facility] Comment on above: Order Comment: Speci men Type: BLOOD SPECIMENOrdering Facility: [facility] Address: [address] [place] [address] Performed By: #### 5 7021-8, 4536-7 ####[facility] LABCLIA [id number] [place] [address] [place] Platelet mean volume (Bld) [Entitic vol] [facility] Comment on above: Order Comment: Speci men Type: BLOOD SPECIMENOrdering Facility: [facility] Address: [address] [place] [address] Result Comment: Unab le to Report. Performed By: #### 5 7021-8, 4537-7 ####[facility] LABCLIA [id number] [place] [address] [place] Platelets (Bld) [#/Vol] 185 10*3/uL Normal 150-400 [facility] Comment on above: Order Comment: Speci men Type: BLOOD SPECIMENOrdering Facility: [facility] Address: [address] [place] [address] Result Comment: Resu lts checked and verified.No clot detected. Performed By: #### 5 7021-8, 4537-7 ####[facility] LABIA [id number] [place] [address] [place] RBC (Bld) [#/Vol] 5.15 10*6/uL Normal 3.90-5.20 [facility] Comment on above: Order Comment: Speci men Type: BLOOD SPECIMENOrdering Facility: [facility] Address: [address] [place] [address] Performed By: #### 5 7021-8, 4537-7 ####[facility] LABIA [id number] [place] [address] [place] WBC (Bld) [#/Vol] 7.47 10*3/uL Normal 3.70-11.00 [facility] Comment on above: Order Comment: Speci men Type: BLOOD SPECIMENOrdering Facility: [facility] Address: [address] [place] [address] Performed By: #### 5 7021-8, 4537-7 ####[facility] LABIA [id number] [place] [address] [place] CNOVon 03-04-2024 CNOV Office Visit ([facility] ) ----- CAROL ANN MARTINEZ ([id number]) 1985 F Date Time Provider Department 03/04/24 1:00 PM JANICE LANESudheer During your visit today, we recorded the following information about you: Temperature Pulse Blood pressure Weight 98.1 degrees 95/minute 101/66 55.7 kg Height 1.689 m Cintia Cadena MA 03/04/2024 1:00 PM Signed [facility] Please visit our lab at least 3-5 days before your scheduled appointment to have your lab work drawn, if lab work is ordered. This will allow us the ability to review your lab work results with you during your scheduled visit. [facility]: Lab is open Friday - Friday from 6:30am to 5pm and open 8am -12pm on Saturdays. [facility]: Friday- 7:30am to 5:30pm. Fridays [...] medicine, or pediatrics at any of our [facility] locations and main campus. [address] [...] for next physical. Patient Instructions [facility] Please visit our lab at least 3-5 days before your scheduled appointment to have your lab work drawn, if lab work is ordered. This will allow us the ability to review your lab work results with you during your scheduled visit. [facility] MCGRATH (more content not included)... [facility] CRP SerPl-mCncon 03-04-2024 CRP [Mass/Vol] mg/L Normal <0.9 [facility] Comment on above: Order Comment: Speci men Type: BLOOD SPECIMENOrdering Facility: [facility] Address: [address] [place] [address] Performed By: #### 1 988-5, 21348-4, 65869-2, 2276-4 ####[facility] LABCLIA [id number] [place] [address] [place] ESR Westergren method (Bld) [Velocity]on 03-04-2024 ESR (Bld) [Velocity] 5 mm/h Normal 0-20 [facility] Comment on above: Order Comment: Specjoshua chauhan Type: BLOOD SPECIMENOrdering Facility: [facility] Address: [address] [place] [address] Performed By: #### 5 7021-8, 4537-7 ####[facility] LABCLIA [id number] [place] [address] [place] Ferritin SerPl-mCncon 2023 Ferritin [Mass/Vol] 14.2 ng/mL Low 14.7-205.1 [facility] Comment on above: Order Comment: Speci men Type: BLOOD SPECIMENOrdering Facility: [facility] Address: [address] [place] [address] Performed By: #### 1 988-5, 24681-6, 20955-9, 2276-4 ####[facility] LABCLIA [id number] [place] [address] [place] Iron and Iron binding capaci ty panelon 03-04-2024 Iron [Mass/Vol] 90 ug/dL Normal 41-186 [facility] Comment on above: Order Comment: Speci men Type: BLOOD SPECIMENOrdering Facility: [facility] Address: [address] [place] [address] Performed By: #### 1 988-5, 28002-3, 01831-5, 6-4 ####[facility] LABCLIA [id number] [address] [place] Iron binding capacity [Mass/Vol] 351 ug/dL Normal 232-386 [facility] Comment on above: Order Comment: Speci men Type: BLOOD SPECIMENOrdering Facility: [facility] Address: [address] [place] [address] Performed By: #### 1 988-5, 76749-6, 97674-5, 2276-4 ####[facility] LABCLIA [id number] [place] [address] [place] Iron/TIBC [Molar ratio] 25.6 % Normal 15.0-57.0 [facility] Comment on above: Order Comment: Speci men Type: BLOOD SPECIMENOrdering Facility: [facility] Address: [address] [place] [address] Performed By: #### 1 988-5, 30117-7, 20517-3, 2276-4 ####[facility] LABCLIA [id number] [place] [address] [place] No Panel Informationon 03-04 Radiology Study observation (narrative) [facility] Rheumatoid fact SerPl-aCncon 03-04-2024 Rheumatoid factor Qn [IU]/mL Normal <16 [facility] Comment on above: Order Comment: Speci men Type: BLOOD SPECIMENOrdering Facility: [facility] Address: [address] [place] [address] Performed By: #### 1 988-5, 30095-5, 95048-2, 2276-4 ####[facility] LABCLIA [id number] [address] [place] Urate SerPl-mCncon Urate [Mass/Vol] 3.1 mg/dL Normal 2.5-6.6 [facility] Comment on above: Order Comment: Speci men Type: BLOOD SPECIMENOrdering Facility: [facility] Address: [address] [place] [address] Performed By: #### 3 084-1 ####[facility] LABIA [id number] [address] [place] XR CERVICAL 4V [...] Preserved cervical disc spaces and neural foramina. Data Warehouse Specialist: [facility] Transcribe Date/Time: Mar 08 2024 4:48P Dictated by : VIKTORIYA WALTER MD This examination was interpreted and the report reviewed and electronically signed by: VIKTORIYA WALTER MD on Mar 08 2024 4:50PM EST [id number] [facility] XR LUMBAR 3V AP/LAT/L5-S1on 03-04-2024 XR [...] Unremarkable radiographic appearance of the lumbar spine. Data Warehouse Specialist: [facility] Transcribe Date/Time: Mar 08 2024 4:47P Dictated by : VIKTORIYA WALTER MD This examination was interpreted and the report reviewed and electronically signed by: VIKTORIYA WALTER MD on Mar 08 2024 4:48PM EST [id number] [facility] A1C with Estimated Average G adolfon 02-24-2024 Glucose [Mass/Vol] 100 mg/dL Normal [facility] Comment on above: Result Comment: PERF ORMED BY: [facility] [address] [place] [address] PATHOLOGIST [employer] ALEN PRICE M.D. Performed By: #### P TT, HCGQNT, CBC, PT, T4F, A1C WTH eA, TSH3 #### [facility] [address] HbA1c (Bld) [Mass fraction] 5.1 % Normal 4.3-5.6 [facility] Comment on above: Result Comment: Incr eased risk for diabetes: 5.7 - 6.4 diabetes: >6.4 glycemic control for adults with diabetes: <7.0 Performed By: #### P TT, HCGQNT, CBC, PT, T4F, A1C WT eA, TSH3 #### [facility] [address] [place] [id number] [facility] Activated partial thrombopla stin time (aPTT) in platelet poor plasma by coagulation aOrdered By: Clarke Hu on 02-24-2024 aPTT Coag (PPP) [Time] 33.7 s 25.1-36.5 [facility] Comment on above: A hematocrit value g reater than 55% may lead to inaccurate results in coagulation testing. Patients having hematocrit values >55% require a special collection tube for coagulation studies. Please contact the laboratory at [phone] for redraw instructions. Basophils Auto (Bld) [#/Vol] Ordered By: Clarke Hu on 02-24-2024 Basophils (Bld) [#/Vol] 0.0 10*3/uL 0.0-0.2 [facility] Basophils/100 WBC Auto (Bld) Ordered By: Clarke Hu on 02-24-2024 Basophils/100 WBC (Bld) 0.5 % . [facility] Christiano 02-24-2024 TREEN Telephone (SAMEER) ----- CAROL ANN MARTINEZ ([id number]) 1985 F Date Time Provider Department 02/24/24 TOR HERNANDEZ During your visit today, we recorded the following information about you: Shereen Scott 02/24/2024 2:33 PM Signed Chris Call Name of caller : Milady Relationship to patient: Barney Osorio Return call phone number : [phone] Reason for call : Other : Brief description of concern : The patient is not considered homebound and they are unable to admit the patient. Champ Baxter LSW 02/26/2024 10:08 AM Signed Spoke with [facility] CM, Iris Edge regarding this message. Iris stated she encouraged pt to reach out to her insurance company and request an insurance CM to help her find an outside provider to provide services. Request sent to Tor Hernandez APRN.CNP for orders: non-[facility] outpatient PT, OT and SPT? Once she finds an outside provider, then CF can send the orders. DEZ Archer, [facility] Social Work Tor Hernandez APRN.CNP 02/26/2024 10:23 AM Signed Non-[facility] PT, OT, and CHUCK WAGON COOK orders placed Tor Hernandez APRN.CNP February 26, [...] Date Reviewed: 01/19/2024 Reviewed by: Kaitlyn Forbes, loss prevention/safety district manager - Fully Assessed Primary Visit Diagnosis:Multiple sclerosis (HCC) [G35] Order(s):CONSULT TO PHYSICAL THERAPY [9032] Order #: [id number]: 1 FUTURE CONSULT TO SUPERVISOR SHIPFITTERS [604669] Order #: [id number]: 1 FUTURE CONSULT TO SPEECH THERAPY [3258745] Order #: [id number]: 1 FUTURE Prescriptions as of 02/26/2024 - [...] (FLONASE) 50 mcg/actuation nasal spray Use 1 Lipan in each nostril once daily. Problem List [...] extremity [R6 (more content not included)... [facility] Choriogonadotropin.beta subu nit [Units/volume] in Serum or PlasmaOrdered By: Clarke Hu on 02-24-2024 HCG.beta subunit Qn 791.11 m[IU]/mL [facility] Comment on above: Approximate Approxim ate hCG Gestational Age Range (mIU/ml) (weeks)0.2-1 5-50 1-2 50-500 2-3 100-5,000 3-4 500-10,000 4-5 1,000-50,000 5-6 10,000-100,000 6-8 15,000-200,000 8-12 10,000-100,000 Complete Blood Count Auto Di ffon 02-24-2024 Basophils (Bld) [#/Vol] 0.0 10*3/uL Normal 0.0-0.2 [facility] Comment on above: Result Comment: PERF ORMED BY: [place] [address] PATHOLOGIST [employer] ALEN PRICE M.D. Performed By: #### P TT, HCGQNT, CBC, PT, T4F, A1C WTH eA, TSH3 #### [address] Basophils/100 WBC (Bld) 0.5 % Normal . [facility] Comment on above: Performed By: #### P TT, HCGQNT, CBC, PT, T4F, A1C WTH eA, TSH3 #### [address] Eosinophils (Bld) [#/Vol] 0.0 10*3/uL Normal 0.0-0.45 [facility] Comment on above: Performed By: #### P TT, HCGQNT, CBC, PT, T4F, A1C WTH eA, TSH3 #### [address] Eosinophils/100 WBC (Bld) 0.2 % Normal . [facility] Comment on above: Performed By: #### P TT, HCGQNT, CBC, PT, T4F, A1C WTH eA, TSH3 #### [address] Erythrocyte distribution width (RBC) [Ratio] 15.2 % Normal 11.9-15.3 [facility] Comment on above: Performed By: #### P TT, HCGQNT, CBC, PT, T4F, A1C WTH eA, TSH3 #### [address] Hematocrit (Bld) [Volume fraction] 36.9 % Normal 34.0-46.4 [facility] Comment on above: Performed By: #### P TT, HCGQNT, CBC, PT, T4F, A1C WTH eA, TSH3 #### [address] Hemoglobin (Bld) [Mass/Vol] 11.7 g/dL Low 11.8-15.4 [facility] Comment on above: Performed By: #### P TT, HCGQNT, CBC, PT, T4F, A1C WTH eA, TSH3 #### [address] Lymphocytes (Bld) [#/Vol] 2.1 10*3/uL Normal 1.00-4.8 [facility] Comment on above: Performed By: #### P TT, HCGQNT, CBC, PT, T4F, A1C WTH eA, TSH3 #### [address] Lymphocytes/100 WBC (Bld) 26.9 % Normal . [facility] Comment on above: Performed By: #### P TT, HCGQNT, CBC, PT, T4F, A1C WTH eA, TSH3 #### [address] MCH (RBC) [Entitic mass] 24.4 pg Low 24.7-34.3 [facility] Comment on above: Performed By: #### P TT, HCGQNT, CBC, PT, T4F, A1C WTH eA, TSH3 #### [address] MCV (RBC) [Entitic vol] 76.5 fL Low 80-100 [facility] Comment on above: Performed By: #### P TT, HCGQNT, CBC, PT, T4F, A1C WTH eA, TSH3 #### [address] Mean Corpuscular HGB Conc 31.8 g/dL Low 32.0-35.0 [facility] Comment on above: Performed By: #### P TT, HCGQNT, CBC, PT, T4F, A1C WTH eA, TSH3 #### [address] Monocytes (Bld) [#/Vol] 0.7 10*3/uL Normal 0.0-0.8 [facility] Comment on above: Performed By: #### P TT, HCGQNT, CBC, PT, T4F, A1C WTH eA, TSH3 #### [address] Monocytes/100 WBC (Bld) 9.3 % Normal . [facility] Comment on above: Performed By: #### P TT, HCGQNT, CBC, PT, T4F, A1C WTH eA, TSH3 #### [address] Neutrophils (Bld) [#/Vol] 5.0 10*3/uL Normal 1.8-7.7 [facility] Comment on above: Performed By: #### P TT, HCGQNT, CBC, PT, T4F, A1C WTH eA, TSH3 #### [address] Neutrophils/100 WBC (Bld) 63.1 % Normal . [facility] Comment on above: Performed By: #### P TT, HCGQNT, CBC, PT, T4F, A1C WTH eA, TSH3 #### [address] NRBC% 0.0 /100{WBC} Normal 0-0.5 [facility] Comment on above: Performed By: #### P TT, HCGQNT, CBC, PT, T4F, A1C WTH eA, TSH3 #### [address] Platelet mean volume (Bld) [Entitic vol] 11.1 fL High 6.3-10.7 [facility] Comment on above: Performed By: #### P TT, HCGQNT, CBC, PT, T4F, A1C WTH eA, TSH3 #### [address] Platelets (Bld) [#/Vol] 187 10*3/uL Normal 150-450 [facility] Comment on above: Performed By: #### P TT, HCGQNT, CBC, PT, T4F, A1C WTH eA, TSH3 #### [facility] [address] RBC (Bld) [#/Vol] 4.82 10*6/uL Normal 3.60-5.00 [facility] Comment on above: Performed By: #### P TT, HCGQNT, CBC, PT, T4F, A1C WT eA, TSH3 #### [facility] [address] WBC (Bld) [#/Vol] 7.9 10*3/uL Normal 3.8-11.6 [facility] Comment on above: Performed By: #### P TT, HCGQNT, CBC, PT, T4F, A1C WT eA, TSH3 #### [address] Eosinophils Auto (Bld) [#/Vo l]Ordered By: Clarke Hu on 02-24-2024 Eosinophils (Bld) [#/Vol] 0.0 10*3/uL 0.0-0.45 [facility] Eosinophils/100 WBC Auto (Bl d)Ordered By: Clarke Hu on 02-24-2024 Eosinophils/100 WBC (Bld) 0.2 % . [facility] Erythrocyte distribution wid th Auto (RBC) [Ratio]Ordered By: Clarke Hu on 02-24-2024 Erythrocyte distribution width (RBC) [Ratio] 15.2 % 11.9-15.3 [facility] Free T4 (Free Thyroxine)on 0 02-24-2024 Free T4 [Mass/Vol] 0.82 ng/dL Normal 0.61-1.12 [facility] Comment on above: Performed By: #### P TT, HCGQNT, CBC, PT, T4F, A1C WT eA, TSH3 #### [address] Glucose mean value [Mass/vol ume] in Blood Estimated from glycated hemoglobinOrdered By: Clarke Hu on 02-24-2024 Average glucose Estimated from glycated hemoglobin (Bld) [Mass/Vol] 100 mg/dL [facility] HCG,Quantitativeon 4 HCG,Quantitative 791.11 m[iU]/mL Normal [facility] Comment on above: Result Comment: Appr oximate Approximate hCG Gestational Age Range (mIU/ml) (weeks) 0.2-1 5-50 1-2 50-500 2-3 100-5,000 3-4 500-10,000 4-5 1,000-50,000 5-6 10,000-100,000 6-8 15,000-200,000 8-12 10,000-100,000 PERFORMED BY: [place] [address] PATHOLOGIST [employer] ALEN PRICE M.D. Performed By: #### P TT, HCGQNT, CBC, PT, T4F, A1C WTH eA, TSH3 #### [facility] [address] [place] [address] Hematocrit Auto (Bld) [Volum e fraction]Ordered By: Clarke Hu on 02-24-2024 Hematocrit (Bld) [Volume fraction] 36.9 % 34.0-46.4 [facility] Hemoglobin A1c percentageOrd ered By: Clarke Hu on 02-24-2024 HbA1c (Bld) [Mass fraction] 5.1 % 4.3-5.6 [facility] Comment on above: Increased risk for d iabetes: 5.7 - 6.4diabetes: >6.4glycemic control for adults with diabetes: <7.0 Hemoglobin [Mass/volume] in BloodOrdered By: Clarke Hu on 02-24-2024 Hemoglobin (Bld) [Mass/Vol] 11.7 g/dL 11.8-15.4 [facility] INR in Platelet poor plasma by Coagulation assayOrdered By: Clarke Hu on 02-24-2024 INR Coag (PPP) [Relative time] 1.1 {INR} [facility] Comment on above: INR Therapeutic Rang [...] RBC Auto (Bld) [#/Vol] 7.9 10*3/uL 3.8-11.6 [facility] Lymphocytes Auto (Bld) [#/Vo l]Ordered By: Clarke Hu on 02-24-2024 Lymphocytes (Bld) [#/Vol] 2.1 10*3/uL 1.00-4.8 [facility] Lymphocytes/100 WBC Auto (Bl d)Ordered By: Clarke Hu on 02-24-2024 Lymphocytes/100 WBC (Bld) 26.9 % . [facility] MCH Auto (RBC) [Entitic mass ]Ordered By: Clarke Hu on 02-24-2024 MCH (RBC) [Entitic mass] 24.4 pg 24.7-34.3 [facility] MCHC Auto (RBC) [Mass/Vol]Or dered By: Clarke Hu on 02-24-2024 MCHC (RBC) [Mass/Vol] 31.8 g/dL 32.0-35.0 [facility] MCV Auto (RBC) [Entitic vol] Ordered By: Clarke Hu on 02-24-2024 MCV (RBC) [Entitic vol] 76.5 fL 80-100 [facility] Monocytes Auto (Bld) [#/Vol] Ordered By: Clarke Hu on 02-24-2024 Monocytes (Bld) [#/Vol] 0.7 10*3/uL 0.0-0.8 [facility] Monocytes/100 WBC Auto (Bld) Ordered By: Clarke uH on 02-24-2024 Monocytes/100 WBC (Bld) 9.3 % . [facility] Neutrophils Auto (Bld) [#/Vo l]Ordered By: lCarke Hu on 02-24-2024 Neutrophils (Bld) [#/Vol] 5.0 10*3/uL 1.8-7.7 [facility] Neutrophils/100 WBC Auto (Bl d)Ordered By: Clarke Hu on 02-24-2024 Neutrophils/100 WBC (Bld) 63.1 % . [facility] Nucleated erythrocytes [Pres ence] in Blood by Automated countOrdered By: Clarke Hu on 02-24-2024 Nucleated RBC Auto Ql (Bld) 0.0 /100{WBC} 0-0.5 [facility] Partial Thromboplastin Timeo n 02-24-2024 aPTT Coag (Bld) [Time] 33.7 s Normal 25.1-36.5 [facility] Comment on above: Result Comment: A he matocrit value greater than 55% may lead to inaccurate results in coagulation testing. Patients having hematocrit values >55% require a special collection tube for coagulation studies. Please contact the laboratory at [phone] for redraw instructions. PERFORMED BY: [place] [address] PATHOLOGIST [employer]INTER [employer] ALEN PRICE M.D. Performed By: #### P TT, HCGQNT, CBC, PT, T4F, A1C WTH eA, TSH3 #### [facility] [address] [place] [address] Platelet mean volume Auto (B ld) [Entitic vol]Ordered By: Clarke Hu on 02-24-2024 Platelet mean volume (Bld) [Entitic vol] 11.1 fL 6.3-10.7 [facility] Platelets Auto (Bld) [#/Vol] Ordered By: Clarke Hu on 02-24-2024 Platelets (Bld) [#/Vol] 187 10*3/uL 150-450 [facility] Prothrombin Time INRon 02-23 INR Coag (PPP) [Relative time] 1.1 {INR} Normal [facility] Comment on [...] PT, T4F, A1C WTH eA, TSH3 #### [facility] [address] PT Coag (PPP) [Time] 12.2 s Normal 9.0-12.9 [facility] Comment on above: Result Comment: A he matocrit value greater than 55% may lead to inaccurate results in coagulation testing. Patients having hematocrit values >55% require a special collection tube for coagulation studies. Please contact the laboratory at [phone] for redraw instructions. Performed By: #### P TT, HCGQNT, CBC, PT, T4F, A1C [facility] eA, TSH3 #### [facility] [address] Prothrombin time (PT)Ordered By: Clarke Hu on 02-24-2024 PT Coag (PPP) [Time] 12.2 s 9.0-12.9 [facility] Comment on above: A hematocrit value g reater than 55% may lead to inaccurate results in coagulation testing. Patients having hematocrit values >55% require a special collection tube for coagulation studies. Please contact the laboratory at [phone] for redraw instructions. RBC Auto (Bld) [#/Vol]Ordere d By: Clarke Hu on 02-24-2024 RBC (Bld) [#/Vol] 4.82 10*6/uL 3.60-5.00 [facility] Thyroid Stimulating Hormoneo n 02-24-2024 TSH Qn 0.96 m[IU]/L Normal 0.45-5.33 [facility] Comment on above: Performed By: #### P TT, HCGQNT, CBC, PT, T4F, A1C WT eA, TSH3 #### [address] Thyrotropin [Units/volume] i n Serum or PlasmaOrdered By: Clarke Hu on 02-24-2024 TSH Qn 0.96 m[IU]/L 0.45-5.33 [facility] Thyroxine (T4) free [Mass/vo lume] in Serum or PlasmaOrdered By: Clarke Hu on 02-24-2024 Free T4 [Mass/Vol] 0.82 ng/dL 0.61-1.12 [facility] WBC Auto (Bld) [#/Vol]Ordere d By: Clarke Hu on 02-24-2024 WBC (Bld) [#/Vol] 7.9 10*3/uL 3.8-11.6 [facility] CNPNon 02-18-2024 CNPN Telephone (NEMSMN) ----- CAROL ANN MARTINEZ ([id number]) 1985 F Date Time Provider Department 02/18/24 CHAMP BAXTER During your visit today, we recorded the following information about you: Diana Garcia 02/18/2024 8:55 AM Signed Chris Call Name of caller : [facility] Relationship to patient: Self Return call phone number : [phone] Reason for call : Would like a [...] Date Reviewed: 01/19/2024 Reviewed by: Kaitlyn Forbes, loss prevention/safety district manager - Fully Assessed Reason for Visit: Patient [...] (FLONASE) 50 mcg/actuation nasal spray Use 1 Lipan in each nostril once daily. Problem List [...] Encounter Status:Closed by CHAMP BAXTER on 02/18/24 [facility] 02-03-2024 CNPN Telephone (NEMSMN) ----- CAROL ANN MARTINEZ ([id number]) 1985 F Date Time Provider Department 02/03/24 CHAMP BAXTER During your visit today, we recorded the following information about you: Clarice Zepeda HUC 02/03/2024 1:33 PM Signed Chris Call Name of caller : Iris Edge Relationship to patient: [facility] Return call phone number : [phone] Reason for call : Other : Brief description of concern : Has follow up questions Champ Baxter LSW 02/04/2024 9:37 AM Signed Returned Iris's call. Iris stated pt was approved for a [facility] aide one day a week for 45 min to assist with additonal care needs. Iris is requesting an order from the doctor to start care. I will e-mail Iris the order when completed. DEZ Archer, [facility] Social Work Allergies As of Date: 02/03/2024 [...] Date Reviewed: 01/19/2024 Reviewed by: Kaitlyn Forbes, loss prevention/safety district manager - Fully Assessed Reason for Visit: Patient [...] (FLONASE) 50 mcg/actuation nasal spray Use 1 Lipan in each nostril once daily. Problem List [...] Status:Closed by CHAMP BAXTER on 02/04/24 [facility] MR Thoracic spine WO and W c ontrast Joe 01-19-2024 [facility] MRI THORACIC SPINE WO/W IVCO Non [...] identified to suggest active or progressive disease. Data Warehouse Specialist: PSCB Transcribe Date/Time: Jan 19 2024 3:31P Dictated by : LOVE WHARTON MD This examination was interpreted and the report reviewed and electronically signed by: LOVE WHARTON MD on Jan 19 2024 3:43PM EST [id number] [facility] CNPNon 01-05-2024 [facility] ----- MARTINEZCAROL ANN ([id number]) 1985 F Date Time Provider Department 01/05/24 [...] Date Reviewed: 12/25/2023 Reviewed by: Tor Hernandez APRN.BUS INSPECTOR - Fully Assessed Reason for Visit: Appointment [...] (FLONASE) 50 mcg/actuation nasal spray Use 1 Lipan in each nostril once daily. Problem List [...] Status:Closed by NADINE JAMES on 01/05/24 [facility] CNOVon 12-25-2023 CNOV Office Visit (NEMSLR ) ----- CAROL ANN MARTINEZ ([id number]) 1985 F Date Time Provider Department 12/25/23 11:00 AM TOR HERNANDEZ NEMSLR During your visit today, we recorded the following information about you: Pulse Blood pressure Weight Last Period 87/minute 95/67 56.8 kg 12/21/23 Tor Hernandez APRN.BUS INSPECTOR 12/25/2023 12:09 PM [facility] FOLLOWUP/ESTABLISHED PATIENT VISIT PRINCIPAL NEUROLOGIC DIAGNOSIS: Multiple Sclerosis DISEASE SUMMARY Date of onset: 03/2007 Date of diagnosis of MS: 03/2007 Disease course at onset: Relapsing-Remitting Current disease course: Progressive without relapses Previous disease therapies: - Betaseron [phone] - Copaxone 7111-8060 - Tysabri 2009-Summer 2019 (stopped due to planned ) - Copaxone [phone] (during ) Current disease therapy: Ocrevus (since 02/28/21, most recent 09/25/23) Most recent MRI brain: 01/02/23 (stable) Most recent MRI cervical spine: 01/02/23 (stable) Most recent MRI thoracic spine: 07/23/2022 CSF: NA JCV: 02/14/2021 0.28, stratify negative Brief Disease History: - 2006 lower extremity numbness evolving over 3 weeks following occipital relase - [phone] recurrent OS ON - 9108-2937 several relapses including L numbness, weakness, constipation, urinary urgency - 2019 R weakness and numbness needing a wheelchair, hospitalized at [facility] (off Tysabri x3 months due to planning [...] 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 Office Visit from 01/17/[address] [facility] Appointment from 01/15/[address] [facility] Upper Extremity Domain T Score 28.29 31.35 30 Lower Extremity Domain T Score 36.94 36.94 39 Cognitive Function Domain T Score 30.7 28.53 38 Positive Affect Well Being T Score -- -- -- Ability To Participate In Social Roles T Score 39.9 39.9 43 Satisfaction With Social Roles T Score 39.66 39.66 45 Neuro-QoL Symptoms (higher=worse symptoms) Flowsheet [facility] Office Visit from 07/23/[address] [facility] Office Visit from 01/17/[address] [facility] Appointment from 01/15/[address] [facility] Sleep Domain T Score 69.2 68.89 [...] female, L (more content not included)... [facility] CNPNon 12-25-2023 CNPN Telephone (HCSIND) ----- CAROL ANN MARTINEZ ([id number]) 1985 F Date Time Provider Department 12/25/23 LISA ELLIOTT HCSIND During your visit today, we recorded the following information about you: Lisa Elliott 12/25/2023 2:08 PM Addendum Spoke with Roxy from [facility] and accepted the patient for Home Care. Thank you for the referral of your patient to [facility]. At this time, we are unable to accommodate your patient's needs in a safe and timely fashion. In order to help your patient receive quality home care, we will assist in finding alternate staffing. I have forwarded the referral to [facility], and it is pending. I will notify you when we have an accepting agency. Thank you. Thank you for the referral of your patient to [facility]. At this time, we are unable to accommodate your patient's needs in a safe and timely fashion. In order to help your patient receive quality home care, we will assist in finding alternate staffing. I have forwarded the referral to [facility], and it is declined. I will notify you when we have an accepting agency. Thank you. Thank you for the referral of your patient to [facility]. At this time, we are unable to accommodate your patient's needs in a safe and timely fashion. In order to help your patient receive quality home care, we will assist in finding alternate staffing. I have forwarded the referral to [facility], and it is declined. I will notify [...] Date Reviewed: 12/25/2023 Reviewed by: Tor Hernandez APRN.BUS INSPECTOR - Fully Assessed Reason for Visit: Home [...] (FLONASE) 50 mcg/actuation nasal spray Use 1 Lipan in each nostril once daily. Problem List As Of Date 12/25/2023 Noted Resolved Multiple sclerosis (HCC) [G35] 11/15/2019 Chronic insomnia [F51.04] 01/04/2020 AMA (advanced maternal age) primigravida 35+, s*2020 01/11/2021 History of loop electrosurgical excision proced*2020 01/11/2021 Poor growth affecting (more content not included)... [facility] HCG ( test) Ql (U)o n 12-23-2023 Interpretation and review of laboratory results Normal [facility] Preg Test, Ur Negative [facility] Laboratory - Microbiology an d Antimicrobial susceptibilityon 12-23-2023 SARS-CoV-2 (COVID-19) RNA DEIRDRE+probe Ql (Unsp spec) Negative [facility] No Panel Informationon 12-23 FLU A Negative [facility] FLU B Negative [facility] Interpretation and review of laboratory results Normal [facility] 11-28-2023 L Specimen: BS Received: 11/28/23 Status: ALLISON See Num: [id number] Spec Type: Surgical Subm Dr: Clarke Hu Tissues: A Endometrium - Curettings (EMC) Procedures: HE/2, Gross/Micro L4 Age/ Patient Sex Location Account Attending Physician Carol Ann Martinez 38/F LABELL [id number] Clarke Hu SPEC NUM: BS RECD: 11/28/23 STATUS: ALLISON SEE NUM: [id number] ALLAN: 11/28/[address]: Clarke Hu ENTERED: 11/28/[address] [facility] [address]: Sherry,Lab SPEC TYPE: Surgical DEPT: [...] in one cassette labeled A1. CPT Codes 50862 Specimen: [id number] Received: 11/28/23 Status: ALLISON See Num: [id number] Spec Type: Surgical Subm Dr: Clarke Hu Tissues: A Endometrium - Curettings (EMC) Procedures: HE/2, Gross/Micro L4 Patient: Carol Ann Martinez [id number] (Continued) Signed (signature on file) Edu Watkins MD 12/01/232158 [place] [facility] 10-13-2023 [facility] Social Work (HEMASA) ----- CAROL ANN MARTINEZ ([id number]) 1985 F Date Time Provider Department 10/13/23 [...] (FLONASE) 50 mcg/actuation nasal spray Use 1 Lipan in each nostril once daily. Problem List [...] Status:Closed by ALEXANDRA HOGAN on 10/13/23 [facility] CBC W Auto Differential pane l (Bld)on 09-25-2023 Basophils (Bld) [#/Vol] 0.03 10*3/uL <0.11 k/uL [facility] Basophils/100 WBC (Bld) 0.8 % [facility] Differential cell count method Nom (Bld) Auto [facility] Eosinophils (Bld) [#/Vol] 0.07 10*3/uL <0.46 k/uL [facility] Eosinophils/100 WBC (Bld) 1.8 % [facility] Erythrocyte distribution width (RBC) [Ratio] 17.1 % High 11.5 - 15.0 % [facility] Hematocrit (Bld) [Volume fraction] 41.0 % 36.0 - 46.0 % [facility] Hemoglobin (Bld) [Mass/Vol] 12.5 g/dL 11.5 - 15.5 g/dL [facility] Immature granulocytes (Bld) [#/Vol] <0.10 k/uL [facility] Immature granulocytes/100 WBC (Bld) 0.0 % [facility] Lymphocytes (Bld) [#/Vol] 2.63 10*3/uL 1.00 - 4.00 k/uL [facility] Lymphocytes/100 WBC (Bld) 66.4 % [facility] MCH (RBC) [Entitic mass] 23.7 pg Low 26.0 - 34.0 pg [facility] MCHC (RBC) [Mass/Vol] 30.5 g/dL 30.5 - 36.0 g/dL [facility] MCV (RBC) [Entitic vol] 77.7 fL Low 80.0 - 100.0 fL [facility] Monocytes (Bld) [#/Vol] 0.51 10*3/uL <0.87 k/uL [facility] Monocytes/100 WBC (Bld) 12.9 % [facility] Neutrophils (Bld) [#/Vol] 0.72 10*3/uL Low 1.45 - 7.50 k/uL [facility] Neutrophils/100 WBC (Bld) 18.1 % [facility] Nucleated RBC (Bld) [#/Vol] <0.01 k/uL [facility] Nucleated RBC/100 WBC (Bld) [Ratio] 0.0 /100 WBC [facility] Platelet mean volume (Bld) [Entitic vol] [facility] Platelets (Bld) [#/Vol] 179 10*3/uL 150 - 400 k/uL [facility] RBC (Bld) [#/Vol] 5.28 10*6/uL High 3.90 - 5.2 0 m/uL [facility] WBC (Bld) [#/Vol] 3.96 10*3/uL 3.70 - 11. 00 k/uL [facility] Basophils (Bld) [#/Vol] 0.03 10*3/uL Normal <0.11 [facility] Comment on above: Order Comment: Speci men Type: BLOOD SPECIMENOrdering Facility: [facility] Address: [address] [place] [address] Performed By: #### 5 7021-8 ####[facility] LABCLIA [id number] [place] [address] Basophils/100 WBC (Bld) 0.8 % [facility] Comment on above: Order Comment: Speci men Type: BLOOD SPECIMENOrdering Facility: [facility] Address: [address] [place] [address] Performed By: #### 5 7021-8 ####[facility] LABCLIA [id number] [place] [address] Differential cell count method Nom (Bld) Auto [facility] Comment on above: Order Comment: Speci men Type: BLOOD SPECIMENOrdering Facility: [facility] Address: [address] [place] [address] Performed By: #### 5 7021-8 ####[facility] LABCLIA [id number] [place] [address] Eosinophils (Bld) [#/Vol] 0.07 10*3/uL Normal <0.46 [facility] Comment on above: Order Comment: Speci men Type: BLOOD SPECIMENOrdering Facility: [facility] Address: [address] [place] [address] Performed By: #### 5 7021-8 ####[facility] LABCLIA [id number] [place] [address] Eosinophils/100 WBC (Bld) 1.8 % [facility] Comment on above: Order Comment: Speci men Type: BLOOD SPECIMENOrdering Facility: [facility] Address: [address] [place] [address] Performed By: #### 5 7021-8 ####[facility] LABCLIA [id number] [place] [address] Erythrocyte distribution width (RBC) [Ratio] 17.1 % High 11.5-15.0 [facility] Comment on above: Order Comment: Speci men Type: BLOOD SPECIMENOrdering Facility: [facility] Address: [address] [place] [address] Performed By: #### 5 7021-8 ####[facility] LABCLIA [id number] [place] [address] Hematocrit (Bld) [Volume fraction] 41.0 % Normal 36.0-46.0 [facility] Comment on above: Order Comment: Speci men Type: BLOOD SPECIMENOrdering Facility: [facility] Address: [address] [place] [address] Performed By: #### 5 7021-8 ####[facility] LABCLIA [id number] [place] [address] Hemoglobin (Bld) [Mass/Vol] 12.5 g/dL Normal 11.5-15.5 [facility] Comment on above: Order Comment: Speci men Type: BLOOD SPECIMENOrdering Facility: [facility] Address: [address] [place] [address] Performed By: #### 5 7021-8 ####[facility] LABCLIA [id number] [place] [address] Immature granulocytes (Bld) [#/Vol] 10*3/uL Normal <0.10 [facility] Comment on above: Order Comment: Speci men Type: BLOOD SPECIMENOrdering Facility: [facility] Address: [address] [place] [address] Performed By: #### 5 7021-8 ####[facility] LABCLIA [id number] [place] [address] Immature granulocytes/100 WBC (Bld) 0.0 % [facility] Comment on above: Order Comment: Speci men Type: BLOOD SPECIMENOrdering Facility: [facility] Address: [address] [place] [address] Performed By: #### 5 7021-8 ####[facility] LABCLIA [id number] [place] [address] Lymphocytes (Bld) [#/Vol] 2.63 10*3/uL Normal 1.00-4.00 [facility] Comment on above: Order Comment: Speci men Type: BLOOD SPECIMENOrdering Facility: [facility] Address: [address] [place] [address] Performed By: #### 5 7021-8 ####[facility] LABIA [id number] [place] [address] Lymphocytes/100 WBC (Bld) 66.4 % [facility] Comment on above: Order Comment: Speci men Type: BLOOD SPECIMENOrdering Facility: [facility] Address: [address] [place] [address] Performed By: #### 5 7021-8 ####[facility] LABCLIA [id number] [place] [address] MCH (RBC) [Entitic mass] 23.7 pg Low 26.0-34.0 [facility] Comment on above: Order Comment: Speci men Type: BLOOD SPECIMENOrdering Facility: [facility] Address: [address] [place] [address] Performed By: #### 5 7021-8 ####[facility] LABCLIA [id number] [place] [address] MCHC (RBC) [Mass/Vol] 30.5 g/dL Normal 30.5-36.0 [facility] Comment on above: Order Comment: Speci men Type: BLOOD SPECIMENOrdering Facility: [facility] Address: [address] [place] [address] Performed By: #### 5 7021-8 ####[facility] LABCLIA [id number] [place] [address] MCV (RBC) [Entitic vol] 77.7 fL Low 80.0-100.0 [facility] Comment on above: Order Comment: Speci men Type: BLOOD SPECIMENOrdering Facility: [facility] Address: [address] [place] [address] Performed By: #### 5 7021-8 ####[facility] LABIA [id number] [place] [address] Monocytes (Bld) [#/Vol] 0.51 10*3/uL Normal <0.87 [facility] Comment on above: Order Comment: Speci men Type: BLOOD SPECIMENOrdering Facility: [facility] Address: [address] [place] [address] Performed By: #### 5 7021-8 ####[facility] LABCLIA [id number] [place] [address] Monocytes/100 WBC (Bld) 12.9 % [facility] Comment on above: Order Comment: Speci men Type: BLOOD SPECIMENOrdering Facility: [facility] Address: [address] [place] [address] Performed By: #### 5 7021-8 ####[facility] LABIA [id number] [place] [address] Neutrophils (Bld) [#/Vol] 0.72 10*3/uL Low 1.45-7.50 [facility] Comment on above: Order Comment: Speci men Type: BLOOD SPECIMENOrdering Facility: [facility] Address: [address] [place] [address] Performed By: #### 5 7021-8 ####[facility] LABCLIA [id number] [place] [address] Neutrophils/100 WBC (Bld) 18.1 % [facility] Comment on above: Order Comment: Speci men Type: BLOOD SPECIMENOrdering Facility: [facility] Address: [address] [place] [address] Performed By: #### 5 7021-8 ####[facility] LABCLIA [id number] [place] [address] Nucleated RBC (Bld) [#/Vol] 10*3/uL Normal <0.01 [facility] Comment on above: Order Comment: Speci men Type: BLOOD SPECIMENOrdering Facility: [facility] Address: [address] [place] [address] Performed By: #### 5 7021-8 ####[facility] LABCLIA [id number] [place] [address] Nucleated RBC/100 WBC (Bld) [Ratio] 0.0 /100 WBC [facility] Comment on above: Order Comment: Speci men Type: BLOOD SPECIMENOrdering Facility: [facility] Address: [address] [place] [address] Performed By: #### 5 7021-8 ####[facility] LABCLIA [id number] [place] [address] Platelet mean volume (Bld) [Entitic vol] [facility] Comment on above: Order Comment: Speci men Type: BLOOD SPECIMENOrdering Facility: [facility] Address: [address] [place] [address] Result Comment: Unab le to Report. Performed By: #### 5 7021-8 ####[facility] LABCLIA [id number] [place] [address] Platelets (Bld) [#/Vol] 179 10*3/uL Normal 150-400 [facility] Comment on above: Order Comment: Speci men Type: BLOOD SPECIMENOrdering Facility: [facility] Address: [address] [place] [address] Result Comment: Resu lts checked and verified.No clot detected. Performed By: #### 5 7021-8 ####[facility] LABCLIA [id number] [place] [address] RBC (Bld) [#/Vol] 5.28 10*6/uL High 3.90-5.20 [facility] Comment on above: Order Comment: Speci men Type: BLOOD SPECIMENOrdering Facility: [facility] Address: [address] [place] [address] Performed By: #### 5 7021-8 ####[facility] LABCLIA [id number] [place] [address] WBC (Bld) [#/Vol] 3.96 10*3/uL Normal 3.70-11.00 [facility] Comment on above: Order Comment: Speci men Type: BLOOD SPECIMENOrdering Facility: [facility] Address: [address] [place] [address] Performed By: #### 5 7021-8 ####[facility] LABCLIA [id number] [place] [address] CD19 ABSOLUTE COUNTon 2022 CD3-CD19+ cells (Bld) [#/Vol] 0 cells/uL Low 75-660 [facility] Comment on above: Order Comment: Speci men Type: BLOOD SPECIMENOrdering Facility: [facility] Address: [address] [place] [address] Performed By: #### A BS19 ####[facility] LABCLIA [id number] [place] [id number] [id number] [place] CD3-CD19+ cells/100 cells (Bld) 0 % Low 5-22 [facility] Comment on above: Order Comment: Speci men Type: BLOOD SPECIMENOrdering Facility: [facility] Address: [place] [address] Performed By: #### A BS19 ####[facility] LABIA [id number] [place] [address] [place] Lymphocytes/100 WBC FC (Bld) [facility] Comment on above: Order Comment: Speci men Type: BLOOD SPECIMENOrdering Facility: [facility] Address: [place] [address] Performed By: #### A BS19 ####[facility] [id number] [address] OF [place] CNPLilli 09-25-2023 CNPN Telephone (HEMTSA) ----- CAROL ANN MARTINEZ F ([id number]) 1985 F Date Time Provider Department 09/25/23 MILAGROS ESPINO During your visit today, we recorded the following information about you: Milagros Espino RN 09/25/2023 10:40 AM Signed Carol Ann is in our [place] [facility] for her Ocrevus today. I just [...] [D70.2] Order(s):CBC + DIFF [[id number]] Order #: [id number] FUTURE Prescriptions as of 09/29/2023 - metroNIDAZOLE [...] (FLONASE) 50 mcg/actuation nasal spray Use 1 Lipan in each nostril once daily. Problem List [...] Status:Closed by MILAGROS ESPINO on 09/29/23 [facility] Comprehensive metabolic 2000 panelon 09-25-2023 Albumin [Mass/Vol] 4.5 g/dL 3.9 - 4.9 g/dL [facility] ALP [Catalytic activity/Vol] 58 U/L 34 - 123 U/L [facility] ALT [Catalytic activity/Vol] 11 U/L 7 - 38 U/L [facility] Anion gap [Moles/Vol] 9 mmol/L 9 - 18 mmol/L [facility] AST [Catalytic activity/Vol] 17 U/L 13 - 35 U/L [facility] Bilirubin [Mass/Vol] 0.5 mg/dL 0.2 - 1 .3 mg/dL [facility] Calcium [Mass/Vol] 9.5 mg/dL 8.5 - 10. 2 mg/dL [facility] Chloride [Moles/Vol] 106 mmol/L High 97 - 10 5 mmol/L [facility] CO2 [Moles/Vol] 26 mmol/L 22 - 30 mmol/L [facility] Creatinine [Mass/Vol] 0.95 mg/dL 0.58 - 0.96 mg/dL [facility] Estimated Glomerular Filtration Rate 79 mL/min/1.73m >=60 mL/min/1.73m [facility] Glucose [Mass/Vol] 89 mg/dL 74 - 99 mg/dL [facility] Potassium [Moles/Vol] 3.6 mmol/L Low 3.7 - 5.1 mmol/L [facility] Protein [Mass/Vol] 7.4 g/dL 6.3 - 8.0 g/dL [facility] Sodium [Moles/Vol] 141 mmol/L 136 - 144 mmol/L [facility] Urea nitrogen [Mass/Vol] 14 mg/dL 7 - 21 mg/dL [facility] Albumin [Mass/Vol] 4.5 g/dL Normal 3.9-4.9 [facility] Comment on above: Order Comment: Speci men Type: BLOOD SPECIMENOrdering Facility: [facility] Address: [address] [place] [address] Performed By: #### 2 4323-8 ####[facility] LABCLIA [id number] [place] [address] ALP [Catalytic activity/Vol] 58 U/L Normal 34-123 [facility] Comment on above: Order Comment: Speci men Type: BLOOD SPECIMENOrdering Facility: [facility] Address: [address] [place] [address] Performed By: #### 2 4323-8 ####[facility] LABCLIA [id number] [place] [address] ALT [Catalytic activity/Vol] 11 U/L Normal 7-38 [facility] Comment on above: Order Comment: Speci men Type: BLOOD SPECIMENOrdering Facility: [facility] Address: [address] [place] [address] Performed By: #### 2 4323-8 ####[facility] LABCLIA [id number] [place] [address] Anion gap [Moles/Vol] 9 mmol/L Normal 9-18 [facility] Comment on above: Order Comment: Speci men Type: BLOOD SPECIMENOrdering Facility: [facility] Address: [address] [place] [address] Performed By: #### 2 4323-8 ####[facility] LABCLIA [id number] [place] [address] AST [Catalytic activity/Vol] 17 U/L Normal 13-35 [facility] Comment on above: Order Comment: Speci men Type: BLOOD SPECIMENOrdering Facility: [facility] Address: [address] [place] [address] Performed By: #### 2 4323-8 ####[facility] LABCLIA [id number] [place] [address] Bilirubin [Mass/Vol] 0.5 mg/dL Normal 0.2-1.3 [facility] Comment on above: Order Comment: Speci men Type: BLOOD SPECIMENOrdering Facility: [facility] Address: [address] [place] [address] Performed By: #### 2 4323-8 ####[facility] LABCLIA [id number] [place] [address] Calcium [Mass/Vol] 9.5 mg/dL Normal 8.5-10.2 [facility] Comment on above: Order Comment: Speci men Type: BLOOD SPECIMENOrdering Facility: [facility] Address: [address] [place] [address] Performed By: #### 2 4323-8 ####[facility] LABCLIA [id number] [place] [address] Chloride [Moles/Vol] 106 mmol/L High 97-105 [facility] Comment on above: Order Comment: Speci men Type: BLOOD SPECIMENOrdering Facility: [facility] Address: [address] [place] [address] Performed By: #### 2 4323-8 ####[facility] LABCLIA [id number] [place] [address] CO2 [Moles/Vol] 26 mmol/L Normal 22-30 [facility] Comment on above: Order Comment: Speci men Type: BLOOD SPECIMENOrdering Facility: [facility] Address: [address] [place] [address] Performed By: #### 2 4323-8 ####[facility] LABCLIA [id number] [place] [address] Creatinine [Mass/Vol] 0.95 mg/dL Normal 0.58-0.96 [facility] Comment on above: Order Comment: Speci men Type: BLOOD SPECIMENOrdering Facility: [facility] Address: [address] [place] [address] Performed By: #### 2 4323-8 ####[facility] LABCLIA [id number] [place] [address] Creatinine and Glomerular filtration rate.predicted panel (S/P/Bld) 79 mL/min/1.73m??? Normal >=60 [facility] Comment on above: Order Comment: Rylee chauhan Type: BLOOD SPECIMENOrdering Facility: [facility] Address: [address] [id number] Result Comment: Priscila mated Glomerular Filtration Rate [...] GFR. Performed By: #### 2 4323-8 ####[facility] LABCLIA [id number] [place] [address] Glucose [Mass/Vol] 89 mg/dL Normal 74-99 [facility] Comment on above: Order Comment: Rylee chauhan Type: BLOOD SPECIMENOrdering Facility: [facility] Address: [address] [place] [address] Result Comment: The [place] [employer] Association (ADA) provides guidance for cutoff [...] Standards of Medical Care in Diabetes 2016, [place] [employer]. Diabetes Care. 2016.39(Suppl 1). Performed By: #### 2 4323-8 ####[facility] LABCLIA [id number] [place] [address] Potassium [Moles/Vol] 3.6 mmol/L Low 3.7-5.1 [facility] Comment on above: Order Comment: Rylee chauhan Type: BLOOD SPECIMENOrdering Facility: [facility] Address: [address] [id number] Performed By: #### 2 4323-8 ####[facility] LABCLIA [id number] [place] [address] Protein [Mass/Vol] 7.4 g/dL Normal 6.3-8.0 [facility] Comment on above: Order Comment: Speci men Type: BLOOD SPECIMENOrdering Facility: [facility] Address: [address] [place] [address] Performed By: #### 2 4323-8 ####[facility] LABCLIA [id number] [place] [address] Sodium [Moles/Vol] 141 mmol/L Normal 136-144 [facility] Comment on above: Order Comment: Speci men Type: BLOOD SPECIMENOrdering Facility: [facility] Address: [address] [place] [address] Performed By: #### 2 4323-8 ####[facility] LABCLIA [id number] [place] [address] Urea nitrogen [Mass/Vol] 14 mg/dL Normal 7-21 [facility] Comment on above: Order Comment: Speci men Type: BLOOD SPECIMENOrdering Facility: [facility] Address: [address] [place] [address] Performed By: #### 2 4323-8 ####[facility] LABCLIA [id number] [place] [address] HBV core Ab Ser Qlon 023 HBV core Ab Ql (S) Negative Normal Negative [facility] Comment on above: Order Comment: Speci men Type: BLOOD SPECIMENOrdering Facility: [facility] Address: [address] [place] [address] Result Comment: No e vidence of current or past infection with Hepatitis B virus. Should recent infection be suspected, repeat testing may be considered 3-4 weeks after this draw. Performed By: #### 5 195-3, 28567-4, 18966-0 ####[facility] LABCLIA [id number] [facility] [id number] [address] [place] HBV surface Ab Ql (S)on 09-10 HBV surface Ab Qn (S) 528.76 mIU/mL [facility] HBV surface Ab Qn (S) 528.76 mIU/mL [facility] Comment on above: Order Comment: Speci men Type: BLOOD SPECIMENOrdering Facility: [facility] Address: [address] [place] [address] Result Comment: <8 m IU/mL: No serological evidence of immunity to Hepatitis B Virus. >/= 8 to <12 mIU/mL: No serological evidence of immunity to Hepatitis B Virus. >/= 12 mIU/mL: Consistent with serological evidence of immunity to Hepatitis B Virus. Performed By: #### 5 195-3, 56509-2, 13735-0 ####[facility] LABCLIA [id number] [place] [address] [place] HBV surface Ab Ser Qlon 09-10 HBV surface Ab Ql (S) Positive Normal [facility] Comment on above: Order Comment: Speci men Type: BLOOD SPECIMENOrdering Facility: [facility] Address: [address] [place] [address] Result Comment: Cons istent with serological evidence of immunity to Hepatitis B Virus. Performed By: #### 5 195-3, 18633-2, 40698-6 ####[facility] LABIA [id number] [place] [address] [place] HBV surface Ag Ser Qlon 09-10 HBV surface Ag Ql (S) Negative Normal Negative [facility] Comment on above: Order Comment: Speci men Type: BLOOD SPECIMENOrdering Facility: [facility] Address: [address] [place] [address] Performed By: #### 5 195-3, 83673-1, 06448-2 ####[facility] LABCLIA [id number] [place] [address] [place] HCV Ab Ser Qlon 09-25-2023 HCV Ab Ql (S) Negative Normal [facility] Comment on above: Order Comment: Speci men Type: BLOOD SPECIMENOrdering Facility: [facility] Address: [address] [place] [address] Result Comment: The result suggests no evidence of active infection with Hepatitis C virus. Should recent infection be suspected, repeat testing may be considered 4-6 weeks after this draw. Performed By: #### 1 6128-1 ####[facility] LABCLIA [id number] [id number] [address] [place] HEP B CORE AB TOTALon 2022 HBV core Ab Ql (S) Negative Negative [facility] HEP B SURF ABon 09-25-2023 HBV surface Ab Ql (S) Positive [facility] HEP B SURF AG SCRNon 023 HBV surface Ag Ql (S) Negative Negative [facility] HEPATITIS C ANTIBODY IA WITH CONFIRMATIONon 09-25-2023 HCV Ab Ql (S) Negative Negative [facility] PELVIC US WHIon 08-26-2023 [facility] Trichmonas Vaginalis Screen (EIA)on 01-24-2023 Trichomonas Vaginalis Screen (EIA) Negative Normal [facility] Comment on above: Performed By: #### E TRIC #### [facility] [address] [place] [address] [employer] On berry 01-24-2023 Wet Prep Clue Cellls 1+ Abnormal [facility] Comment on above: Performed By: #### W ETPR #### [facility] [address] [place] [address] Wet Prep Trichomonas See EIA Normal [facility] Comment on above: Performed By: #### W ETPR #### [facility] [address] [place] [address] Wet Prep Yeast None Seen Normal [facility] Comment on above: Performed By: #### W ETPR #### [facility] [address] [place] [address] CBC W Auto Differential pane l (Bld)on 01-17-2023 Basophils (Bld) [#/Vol] 0.07 10*3/uL <0.11 k/uL [facility] Basophils/100 WBC (Bld) 1.0 % [facility] Differential cell count method Nom (Bld) Auto [facility] Eosinophils (Bld) [#/Vol] 0.07 10*3/uL <0.46 k/uL [facility] Eosinophils/100 WBC (Bld) 1.0 % [facility] Erythrocyte distribution width (RBC) [Ratio] 15.5 % High 11.5 - 15.0 % [facility] Hematocrit (Bld) [Volume fraction] 31.5 % Low 36.0 - 46.0 % [facility] Hemoglobin (Bld) [Mass/Vol] 9.4 g/dL Low 11.5 - 15.5 g/dL [facility] Immature granulocytes (Bld) [#/Vol] <0.10 k/uL [facility] Immature granulocytes/100 WBC (Bld) 0.3 % [facility] Lymphocytes (Bld) [#/Vol] 2.30 10*3/uL 1.00 - 4.00 k/uL [facility] Lymphocytes/100 WBC (Bld) 32.7 % [facility] MCH (RBC) [Entitic mass] 22.2 pg Low 26.0 - 34.0 pg [facility] MCHC (RBC) [Mass/Vol] 29.8 g/dL Low 30.5 - 36.0 g/dL [facility] MCV (RBC) [Entitic vol] 74.3 fL Low 80.0 - 100.0 fL [facility] Monocytes (Bld) [#/Vol] 0.51 10*3/uL <0.87 k/uL [facility] Monocytes/100 WBC (Bld) 7.2 % [facility] Neutrophils (Bld) [#/Vol] 4.07 10*3/uL 1.45 - 7.50 k/uL [facility] Neutrophils/100 WBC (Bld) 57.8 % [facility] Nucleated RBC (Bld) [#/Vol] <0.01 k/uL [facility] Nucleated RBC/100 WBC (Bld) [Ratio] 0.0 /100 WBC [facility] Platelet mean volume (Bld) [Entitic vol] 13.6 fL High 9.0 - 12.7 fL [facility] Platelets (Bld) [#/Vol] 304 10*3/uL 150 - 400 k/uL [facility] RBC (Bld) [#/Vol] 4.24 10*6/uL 3.90 - 5.2 0 m/uL [facility] WBC (Bld) [#/Vol] 7.04 10*3/uL 3.70 - 11. 00 k/uL [facility] Comprehensive metabolic 2000 panelon 01-17-2023 Albumin [Mass/Vol] 4.5 g/dL 3.9 - 4.9 g/dL [facility] ALP [Catalytic activity/Vol] 62 U/L 34 - 123 U/L [facility] ALT [Catalytic activity/Vol] 11 U/L 7 - 38 U/L [facility] Anion gap [Moles/Vol] 9 mmol/L 9 - 18 mmol/L [facility] AST [Catalytic activity/Vol] 18 U/L 13 - 35 U/L [facility] Bilirubin [Mass/Vol] 0.3 mg/dL 0.2 - 1 .3 mg/dL [facility] Calcium [Mass/Vol] 9.8 mg/dL 8.5 - 10. 2 mg/dL [facility] Chloride [Moles/Vol] 104 mmol/L 97 - 10 5 mmol/L [facility] CO2 [Moles/Vol] 26 mmol/L 22 - 30 mmol/L [facility] Creatinine [Mass/Vol] 0.79 mg/dL 0.58 - 0.96 mg/dL [facility] Estimated Glomerular Filtration Rate 99 mL/min/1.73m >=60 mL/min/1.73m [facility] Glucose [Mass/Vol] 69 mg/dL Low 74 - 99 mg/dL [facility] Potassium [Moles/Vol] 4.2 mmol/L 3.7 - 5.1 mmol/L [facility] Protein [Mass/Vol] 7.9 g/dL 6.3 - 8.0 g/dL [facility] Sodium [Moles/Vol] 139 mmol/L 136 - 144 mmol/L [facility] Urea nitrogen [Mass/Vol] 11 mg/dL 7 - 21 mg/dL [facility] MR Brain WO and W contrast I [...] Improvement: None. New Enhancing Lesions: None T2 [place] of Disease: Mild. Parenchymal Volume Loss: None. [...] history of multiple sclerosis. Cord T2 Plaque [place]: Moderate New T2 Lesions: None Interval Cord [...] equal to 2mm). DIVISION OF RADIOLOGY Provider, [facility] - 01/02/2023 * * *Final [...] Improvement: None. New Enhancing Lesions: None T2 [place] of Disease: Mild. Parenchymal Volume Loss: None. [...] history of multiple sclerosis. Cord T2 Plaque [place]: Moderate New T2 Lesions: None Interval Cord [...] vertebrae with counting from the craniocervical junction. Data Warehouse Specialist: ANGEL Transcribe Date/Time: Jan 02 2023 12:13P Dictated by : JEANIE MAKI MD This examination was interpreted and the report reviewed and electronically signed by: JEANIE MAKI MD on Jan 02 2023 12:23PM [facility] MR Cervical spine WO and W c [...] Improvement: None. New Enhancing Lesions: None T2 [place] of Disease: Mild. Parenchymal Volume Loss: None. [...] history of multiple sclerosis. Cord T2 Plaque [place]: Moderate New T2 Lesions: None Interval Cord [...] equal to 2mm). DIVISION OF RADIOLOGY Provider, [facility] - 01/02/2023 * * *Final [...] Improvement: None. New Enhancing Lesions: None T2 [place] of Disease: Mild. Parenchymal Volume Loss: None. [...] history of multiple sclerosis. Cord T2 Plaque [place]: Moderate New T2 Lesions: None Interval Cord [...] vertebrae with counting from the craniocervical junction. Data Warehouse Specialist: [facility] Transcribe Date/Time: Jan 02 2023 12:13P Dictated by : JEANIE MAKI MD This examination was interpreted and the report reviewed and electronically signed by: JEANIE MAKI MD on Jan 02 2023 12:23PM EST [facility] No Panel Informationon 01-02 IMPRESSION: Multiple intracranial [...] vertebrae with counting from the craniocervical junction. 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 [facility] Brain Parenchymal Volume Loss None [facility] Brain T2 [place] of Disease Mild [facility] Cervical spine enhancing lesions None [facility] Cervical Spine New T2 Lesions None [facility] Cervical Spine T2 [place] of Disease Moderate [facility] Radiology Study observation (narrative) [facility] No Panel InformationOrdered By: [facility] Provider on 01-02-2023 [facility] C.trachomatis N.gonorrhoeae DNAon 12-10-2022 C. trachomatis DNA DEIRDRE+probe Ql (Unsp spec) Negative Normal Negative [facility] N. gonorrhoeae DNA DEIRDRE+probe Ql (Unsp spec) Negative Normal Negative [facility] Trichmonas Vaginalis Screen (EIA)on 12-06-2022 Trichomonas Vaginalis Screen (EIA) Negative Normal [facility] Comment on above: Performed By: #### E TRIC #### [facility] [address] [place] [address] [employer] On berry 12-06-2022 Wet Prep Clue Cellls 1+ Abnormal [facility] Comment on above: Performed By: #### W ETPR #### [facility] [address] [place] [address] Wet Prep Trichomonas See EIA Normal [facility] Comment on above: Performed By: #### W ETPR #### [facility] [address] [place] [address] Wet Prep Yeast None Seen Normal [facility] Comment on above: Performed By: #### W ETPR #### [facility] [address] [place] [address] Albumin [Mass/volume] in Ser um or PlasmaOrdered By: Vishal Agarwal on 10-27-2022 Albumin [Mass/Vol] 4.1 g/dL 3.2-5.5 [facility] Basophils Auto (Bld) [#/Vol] Ordered By: Vishal Agarwal on 10-27-2022 Basophils (Bld) [#/Vol] 0.0 10*3/uL 0.0-0.2 [facility] Basophils/100 WBC Auto (Bld) Ordered By: Vishal Agarwal on 10-27-2022 Basophils/100 WBC (Bld) 0.4 % . [facility] COVID CepheidOrdered By: Brook Agarwal on 10-27-2022 SARS-CoV-2 (COVID-19) Ab IA Ql Positive Negative [facility] Comment on above: This is a duplicate [id number] Xpert Xpress CoV-2/Flu/RSV Plus RNA by RT-PCR result to be used for statistical tracking purpose only. SARS-CoV-2 (COVID-19) RNA DEIRDRE+probe Ql (Unsp spec) [facility] Creatinine and Glomerular fi ltration rate.predicted panel (S/P/Bld)Ordered By: Vishal Agarwal on 10-27-2022 Creatinine [Mass/Vol] 0.96 mg/dL 0.44-1.03 [facility] Eosinophils Auto (Bld) [#/Vo l]Ordered By: Vishal Agarwal on 10-27-2022 Eosinophils (Bld) [#/Vol] 0.0 10*3/uL 0.0-0.45 [facility] Eosinophils/100 WBC Auto (Bl d)Ordered By: Vishal Agarwal on 10-27-2022 Eosinophils/100 WBC (Bld) 0.0 % . [facility] Erythrocyte distribution wid th Auto (RBC) [Ratio]Ordered By: Vishal Agarwal on 10-27-2022 Erythrocyte distribution width (RBC) [Ratio] 17.4 % 11.9-15.3 [facility] Estimated glomerular filtrat ion rate (GFR) non- AmericanOrdered By: Vishal Agarwal on 10-27-2022 GFR/1.73 sq M.predicted among non-blacks MDRD (S/P/Bld) [Vol rate/Area] > 60 mL/Min [facility] Globulin Calc (S) [Mass/Vol] Ordered By: Vishal Agarwal on 10-27-2022 Globulin (S) [Mass/Vol] 3.5 g/dL [facility] Hematocrit Auto (Bld) [Volum e fraction]Ordered By: Vishal Agarwal on 10-27-2022 Hematocrit (Bld) [Volume fraction] 38.7 % 34.0-46.4 [facility] Hemoglobin [Mass/volume] in BloodOrdered By: Vishal Agarwal on 10-27-2022 Hemoglobin (Bld) [Mass/Vol] 12.1 g/dL 11.8-15.4 [facility] Leukocytes [#/volume] correc che for nucleated erythrocytes in Blood by Automated counOrdered By: Vishal Agarwal on 10-27-2022 WBC corrected for nucl RBC Auto (Bld) [#/Vol] 4.5 10*3/uL 3.8-11.6 [facility] Lymphocytes Auto (Bld) [#/Vo l]Ordered By: Vishal Agarwal on 10-27-2022 Lymphocytes (Bld) [#/Vol] 0.5 10*3/uL 1.00-4.8 [facility] Lymphocytes/100 WBC Auto (Bl d)Ordered By: Vishal Agarwal on 10-27-2022 Lymphocytes/100 WBC (Bld) 10.8 % . [facility] MCH Auto (RBC) [Entitic mass ]Ordered By: Vishal Agarwal on 10-27-2022 MCH (RBC) [Entitic mass] 23.7 pg 24.7-34.3 [facility] MCHC Auto (RBC) [Mass/Vol]Or dered By: Vishal Agarwal on 10-27-2022 MCHC (RBC) [Mass/Vol] 31.2 g/dL 32.0-35.0 [facility] MCV Auto (RBC) [Entitic vol] Ordered By: Vishal Agarwal on 10-27-2022 MCV (RBC) [Entitic vol] 76.0 fL 80-100 [facility] Monocyte distribution width [Entitic volume] in Blood by AutomatedOrdered By: Vishal Agarwal on 10-27-2022 Monocyte distribution width Auto (Bld) [Entitic vol] 24.86 % 0.00-20.00 [facility] Comment on above: For adults in ED, MD W > 20.0 may be associated with a higher risk of sepsis during the first 12 hrs of hospital admission Monocytes Auto (Bld) [#/Vol] Ordered By: Vishal Agarwal on 10-27-2022 Monocytes (Bld) [#/Vol] 0.8 10*3/uL 0.0-0.8 [facility] Monocytes/100 WBC Auto (Bld) Ordered By: Vishal Agarwal on 10-27-2022 Monocytes/100 WBC (Bld) 16.8 % . [facility] Neutrophils Auto (Bld) [#/Vo l]Ordered By: Vishal Agarwal on 10-27-2022 Neutrophils (Bld) [#/Vol] 3.2 10*3/uL 1.8-7.7 [facility] Neutrophils/100 WBC Auto (Bl d)Ordered By: Vishal Agarwal on 10-27-2022 Neutrophils/100 WBC (Bld) 72.0 % . [facility] No Panel InformationOrdered By: Vishal Agarwal on 10-27-2022 Estimated GFR () > 60 mL/Min [facility] Comment on above: GFR estimated refere nce range: According to KDOQI guidelines, <60 ml/min/1.73m2 is sufficient to diagnose a patient with chronic kidney disease. Pharmacy Creatinine Clearance (Chem 75.11 [facility] Nucleated erythrocytes [Pres ence] in Blood by Automated countOrdered By: Vishal Agarwal on 10-27-2022 Nucleated RBC Auto Ql (Bld) 0.1 /100{WBC} 0-0.5 [facility] Platelet mean volume Auto (B ld) [Entitic vol]Ordered By: Vishal Agarwal on 10-27-2022 Platelet mean volume (Bld) [Entitic vol] 11.0 fL 6.3-10.7 [facility] Platelets Auto (Bld) [#/Vol] Ordered By: Vishal Agarwal on 10-27-2022 Platelets (Bld) [#/Vol] 148 10*3/uL 150-450 [facility] Protein [Mass/volume] in Ser um or PlasmaOrdered By: Vishal Agarwal on 10-27-2022 Protein [Mass/Vol] 7.6 g/dL 6.1-7.9 [facility] RBC Auto (Bld) [#/Vol]Ordere d By: Vishal Agarwal on 10-27-2022 RBC (Bld) [#/Vol] 5.10 10*6/uL 3.60-5.00 [facility] Serum or plasma alanine gannon otransferase measurement without P-5'-P (enzymatic activiOrdered By: Vishal Agarwal on 10-27-2022 ALT No additional P-5'-P [Catalytic activity/Vol] 18 U/L 10-60 [facility] Serum or plasma albumin/glob ulin mass ratioOrdered By: Vishal Agarwal on 10-27-2022 Albumin/Globulin [Mass ratio] 1.2 {ratio} [facility] Serum or plasma alkaline bull sphatase measurement (enzymatic activity/volume)Ordered By: Vishal Agarwal on 10-27-2022 ALP [Catalytic activity/Vol] 43 U/L 32-92 [facility] Serum or plasma anion gap de terminationOrdered By: Vishal Agarwal on 10-27-2022 Anion gap [Moles/Vol] 13.5 mmol/L 6.0-15.[address] [facility] Serum or plasma aspartate am inotransferase measurement (enzymatic activity/volume)Ordered By: Vishal Agarwal on 10-27-2022 AST [Catalytic activity/Vol] 24 U/L 10-42 [facility] Serum or plasma calcium scotty urement (mass/volume)Ordered By: Vishal Agarwal on 10-27-2022 Calcium [Mass/Vol] 9.2 mg/dL 8.2-10.2 [facility] Serum or plasma chloride suize surement (moles/volume)Ordered By: Vishal Agarwal on 10-27-2022 Chloride [Moles/Vol] 101 mmol/L 95-114 [facility] Serum or plasma glucose scotty urement (mass/volume)Ordered By: Vishal Agarwal on 10-27-2022 Glucose [Mass/Vol] 102 mg/dL 70-100 [facility] Comment on above: ADA recommended refe rence rangeRandom Glucose Reference Range is dependent on time and content of last meal. Glucose of more than 200 mg/dL in a nonstressed, ambulatory subject supports the diagnosis of Diabetes Mellitus. Serum or plasma potassium me asurement (moles/volume)Ordered By: Vishal Agarwal on 10-27-2022 Potassium [Moles/Vol] 3.7 mmol/L 3.5-5.1 [facility] Serum or plasma sodium measu rement (moles/volume)Ordered By: Vishal Agarwal on 10-27-2022 Sodium [Moles/Vol] 134 mmol/L 136-146 [facility] Serum or plasma total biliru bin measurement (mass/volume)Ordered By: Vishal Agarwal on 10-27-2022 Bilirubin [Mass/Vol] 0.8 mg/dL 0.3-1.2 [facility] Serum or plasma total carbon dioxide measurement (moles/volume)Ordered By: Vishal Agarwal on 10-27-2022 CO2 [Moles/Vol] 23.2 mmol/L 22.0-30.0 [facility] Serum or plasma urea nitroge n measurement (mass/volume)Ordered By: Vishal Agarwal on 10-27-2022 Urea nitrogen [Mass/Vol] 10 mg/dL 9-23 [facility] WBC Auto (Bld) [#/Vol]Ordere d By: Vishal Agarwal on 10-27-2022 WBC (Bld) [#/Vol] 4.5 10*3/uL 3.8-11.6 [facility] HBV surface Ab IA Ql (S)on 1 11-27-2021 HBV surface Ag Ql (S) Negative Negative [facility] HEP B CORE AB TOTALon 2021 HBV core Ab Ql (S) Negative Negative [facility] HEP B SURF AB QUALon 022 HBV surface Ab Ql (S) Positive [facility] HEP C AB IA W/CONF SCRNon HCV Ab Ql (S) Negative Negative [facility] MR Brain WO and W contrast I [...] Improvement: None. New Enhancing Lesions: None T2 [place] of Disease: Mild. Parenchymal Volume Loss: None. Other Significant Findings: None. MR CERVICAL: Counting reference: Craniocervical junction. Anatomic Variants: None. Alignment: Alignment is anatomic. Craniocervical Junction: Craniocervical junction is normal. Cord Findings: Patchy foci of hyperintensity are noted in the cervical cord on the T2, IR and axial gradient echo images compatible with the history of multiple sclerosis. Cord T2 Plaque [place]: Moderate New T2 Lesions: None Interval Cord [...] history of multiple sclerosis. Cord T2 Plaque [place]: Moderate New T2 Lesions: Greater than three [...] equal to 2mm). DIVISION OF RADIOLOGY Provider, [facility] - 07/23/2022 * * *Final Report* * * DATE OF EXAM: Jul 23 2022 10:56AM [facility] 0295 - MRI BRAIN WO/W IVCON / [...] Improvement: None. New Enhancing Lesions: None T2 [place] of Disease: Mild. Parenchymal Volume Loss: None. Other Significant Findings: None. MR CERVICAL: Counting reference: Craniocervical junction. Anatomic Variants: None. Alignment: Alignment is anatomic. Craniocervical Junction: Craniocervical junction is normal. Cord Findings: Patchy foci of hyperintensity are noted in the cervical cord on the T2, IR and axial gradient echo images compatible with the history of multiple sclerosis. Cord T2 Plaque [place]: Moderate New T2 Lesions: None Interval Cord [...] history of multiple sclerosis. Cord T2 Plaque [place]: Moderate New T2 Lesions: Greater than three [...] and assume there are 5 lumbar-type vertebrae. Data Warehouse Specialist: ANGEL Transcribe Date/Time: Jul 23 2022 11:16A Dictated by : ANIRUDH NUÑEZ MD This examination was interpreted and the report reviewed and electronically signed by: ANIRUDH NUÑEZ MD on Jul 23 2022 6:11PM [facility] MR Cervical spine WO and W c [...] Improvement: None. New Enhancing Lesions: None T2 [place] of Disease: Mild. Parenchymal Volume Loss: None. Other Significant Findings: None. MR CERVICAL: Counting reference: Craniocervical junction. Anatomic Variants: None. Alignment: Alignment is anatomic. Craniocervical Junction: Craniocervical junction is normal. Cord Findings: Patchy foci of hyperintensity are noted in the cervical cord on the T2, IR and axial gradient echo images compatible with the history of multiple sclerosis. Cord T2 Plaque [place]: Moderate New T2 Lesions: None Interval Cord [...] history of multiple sclerosis. Cord T2 Plaque [place]: Moderate New T2 Lesions: Greater than three [...] equal to 2mm). DIVISION OF RADIOLOGY Provider, [facility] - 07/23/2022 * * *Final Report* * * DATE OF EXAM: Jul 23 2022 10:56AM [facility] 0298 - MRI CERVICAL SPINE WO/W IVCON [...] Improvement: None. New Enhancing Lesions: None T2 [place] of Disease: Mild. Parenchymal Volume Loss: None. Other Significant Findings: None. MR CERVICAL: Counting reference: Craniocervical junction. Anatomic Variants: None. Alignment: Alignment is anatomic. Craniocervical Junction: Craniocervical junction is normal. Cord Findings: Patchy foci of hyperintensity are noted in the cervical cord on the T2, IR and axial gradient echo images compatible with the history of multiple sclerosis. Cord T2 Plaque [place]: Moderate New T2 Lesions: None Interval Cord [...] history of multiple sclerosis. Cord T2 Plaque [place]: Moderate New T2 Lesions: Greater than three [...] and assume there are 5 lumbar-type vertebrae. Data Warehouse Specialist: PSCB Transcribe Date/Time: Jul 23 2022 11:16A Dictated by : ANIRUDH NUÑEZ MD This examination was interpreted and the report reviewed and electronically signed by: ANIRUDH NUÑEZ MD on Jul 23 2022 6:11PM [facility] MR [...] Improvement: None. New Enhancing Lesions: None T2 [place] of Disease: Mild. Parenchymal Volume Loss: None. Other Significant Findings: None. MR CERVICAL: Counting reference: Craniocervical junction. Anatomic Variants: None. Alignment: Alignment is anatomic. Craniocervical Junction: Craniocervical junction is normal. Cord Findings: Patchy foci of hyperintensity are noted in the cervical cord on the T2, IR and axial gradient echo images compatible with the history of multiple sclerosis. Cord T2 Plaque [place]: Moderate New T2 Lesions: None Interval Cord [...] history of multiple sclerosis. Cord T2 Plaque [place]: Moderate New T2 Lesions: Greater than three [...] equal to 2mm). DIVISION OF RADIOLOGY Provider, [facility] - 07/23/2022 * * *Final [...] Improvement: None. New Enhancing Lesions: None T2 [place] of Disease: Mild. Parenchymal Volume Loss: None. Other Significant Findings: None. MR CERVICAL: Counting reference: Craniocervical junction. Anatomic Variants: None. Alignment: Alignment is anatomic. Craniocervical Junction: Craniocervical junction is normal. Cord Findings: Patchy foci of hyperintensity are noted in the cervical cord on the T2, IR and axial gradient echo images compatible with the history of multiple sclerosis. Cord T2 Plaque [place]: Moderate New T2 Lesions: None Interval Cord [...] history of multiple sclerosis. Cord T2 Plaque [place]: Moderate New T2 Lesions: Greater than three [...] and assume there are 5 lumbar-type vertebrae. Data Warehouse Specialist: PSCB Transcribe Date/Time: Jul 23 2022 11:16A Dictated by : ANIRUDH NUÑEZ MD This examination was interpreted and the report reviewed and electronically signed by: ANIRUDH NUÑEZ MD on Jul 23 2022 6:11PM EST [facility] No Panel Informationon 07-23 IMPRESSION: Multiple [...] and assume there are 5 lumbar-type vertebrae. Data Warehouse Specialist: [facility] Transcribe Date/Time: Jul 23 2022 11:16A Dictated by : ANIRUDH NUÑEZ MD This examination was interpreted and the report reviewed and electronically signed by: ANIRUDH NUÑEZ MD on Jul 23 2022 6:11PM [facility] DIVISION OF RADIOLOGY Radiology Study observation (narrative) [facility] No Panel InformationOrdered By: Ccf Provider on 07-23-2022 [facility] CBC W Auto Differential pane l (Bld)on 04-25-2022 Abs Immature Gran <0.03 <0.10 k/uL [facility] Basophils (Bld) [#/Vol] 0.03 10*3/uL <0.11 k/uL [facility] Basophils/100 WBC (Bld) 0.6 % [facility] Differential cell count method Nom (Bld) Auto [facility] Eosinophils (Bld) [#/Vol] 0.10 10*3/uL <0.46 k/uL [facility] Eosinophils/100 WBC (Bld) 2.0 % [facility] Erythrocyte distribution width (RBC) [Ratio] 13.9 % 11.5 - 15.0 % [facility] Hematocrit (Bld) [Volume fraction] 38.5 % 36.0 - 46.0 % [facility] Hemoglobin (Bld) [Mass/Vol] 12.0 g/dL 11.5 - 15.5 g/dL [facility] Immature Gran % 0.2 % [facility] Lymphocytes (Bld) [#/Vol] 1.54 10*3/uL 1.00 - 4.00 k/uL [facility] Lymphocytes/100 WBC (Bld) 30.2 % [facility] MCH (RBC) [Entitic mass] 25.4 pg Low 26.0 - 34.0 pg [facility] MCHC (RBC) [Mass/Vol] 31.2 g/dL 30.5 - 36.0 g/dL [facility] MCV (RBC) [Entitic vol] 81.4 fL 80.0 - 100.0 fL [facility] Monocytes (Bld) [#/Vol] 0.66 10*3/uL <0.87 k/uL [facility] Monocytes/100 WBC (Bld) 12.9 % [facility] Neutrophils (Bld) [#/Vol] 2.76 10*3/uL 1.45 - 7.50 k/uL [facility] Neutrophils/100 WBC (Bld) 54.1 % [facility] Nucleated RBC (Bld) [#/Vol] 10*3/uL <0.01 k/uL [facility] Nucleated RBC/100 WBC (Bld) [Ratio] 0.0 /100 WBC [facility] Platelet mean volume (Bld) [Entitic vol] 13.5 fL High 9.0 - 12.7 fL [facility] Platelets (Bld) [#/Vol] 168 10*3/uL 150 - 400 k/uL [facility] RBC (Bld) [#/Vol] 4.73 10*6/uL 3.90 - 5.2 0 m/uL [facility] WBC (Bld) [#/Vol] 5.10 10*3/uL 3.70 - 11. 00 k/uL [facility] URINALYSIS, REFLEX MICROSCOP ICon 04-25-2022 Bilirubin Ql (U) Negative Negative [facility] Clarity (Unsp spec) Clear Clear [facility] Color (U) Light Yellow Yellow [facility] Glucose Test strip (U) [Mass/Vol] Negative Negative [facility] Hemoglobin Ql (U) Negative Negative [facility] Ketones Ql (U) Negative Negative [facility] Leukocyte esterase Test strip Ql (U) Negative Negative [facility] Nitrite Ql (U) Negative Negative [facility] pH (U) 6.0 [pH] 5.0 - 8.0 [facility] Protein (U) [Mass/Vol] Negative Negative [facility] Specific gravity (U) [Rel density] 1.021 1.005 - 1.030 [facility] Urobilinogen Ql (U) Negative Negative [facility] CNPNon 11-13-2021 CNPN Telephone (NEADFV) ----- CAROL ANN MARTINEZ ([id number]) 1985 F Date Time Provider Department 11/13/21 [...] (FLONASE) 50 mcg/actuation nasal spray Use 1 Lipan in each nostril once daily. - MAGNESIUM ORAL Take 1 tablet by mouth twice daily. - Njsiyvgz-Cc-Uae-Fe-FA ( VITAMIN) tab Take 1 tablet by [...] Encounter Status:Closed by AUDIE GABRIEL on 11/13/21 [facility] Christiano 07-24-2021 CNPN Telephone (NEADFV) ----- CAROL ANN MARTINEZ ([id number]) 1985 F Date Time Provider Department 07/24/21 NIDIA GARCIA NERUSSELLFV During your visit today, we recorded the following information about you: Hanna Page Pss 07/24/2021 12:34 PM Signed Patient called stating she is scheduled for an Ocrevus infusion on August 15, but will be out of state in [place]. She would like to have the infusion done there at [facility]. Also,she has new insurance as of May and will need to get the Ocrevus approved through her new insurance ([employer]- ). For questions call patient at [phone] Alexandra Blackman 07/24/2021 1:21 PM Signed Patient called back with a phone number of [phone] for [facility]. The phone # her [place] is [phone]. Audie Gabriel RN 07/24/2021 1:51 PM Signed [...] (FLONASE) 50 mcg/actuation nasal spray Use 1 Lipan in each nostril once daily. - MAGNESIUM ORAL Take 1 tablet by mouth twice daily. - Nfhqkbqv-Ko-Yre-Fe-FA ( VITAMIN) tab Take 1 tablet by [...] Status:Closed by AUDIE GABRIEL on 07/24/21 Normal [facility] Telephone Encounteron 2020 W[employer] Authentication Interface Message Text Patient was identified by name and date of . Patient given message, patient denied additional questions. ----- Message from Sofy Pandya MD sent at 03/22/2021 12:34 PM EDT ----- Please notify neg HPV with ascus pap, OK to f/u in [address] Sofy Pandya Normal [facility] Telephone Encounteron 2020 [employer] Operator Authentication Interface Message Text ----- Message from Sofy Pandya MD sent at 03/08/2021 2:28 PM EDT ----- Please notify ok Normal [facility] GC/CHLAMYDIA/TRICHOMONAS AMP LIFICATIONon 03-07-2021 GC/CHLAMYDIA/TRICHOMO BERTIN AMPLIFICATION CHLAMYDIA AMPLIFICATION: Negative GC AMPLIFICATION: Negative TRICHOMONAS AMPLIFICATION: Negative Normal Negative [facility] Comment on above: Order Comment: This test is performed using an automated nucleic acid amplification assay ([employer] Performed By: #### G CT #### [facility] [address] [place] [address] [place], [place] HEPATITIS C ANTIBODYon 03-07 HCV Non-Reactive Normal Nonreactive [facility] Comment on above: Performed By: #### H CV #### [facility] [address], [place], HIV1 HIV2 AGAB SCRNon 2020 HIV AG-AB SCREEN Non-Reactive Normal Non-Reactive [facility] Comment on above: Order Comment: HIV Information: ???[place] Rev. code 3701.243(E): This information has been [...] agab scrn #### [facility] [address], [place], HUMAN PAPILLOMA VIRUSon 02-09 HPV HIGH RISK Negative Normal Negative [facility] Comment on above: Order Comment: This test is performed using an automated nucleic acid amplification assay ([employer], [employer] [place], [place]). This assay detects RNA of HPV types 16,18,31,33,35,39,45,51,52,56,58,59,66 and 68 in cervical specimens. Result Comment: A ne gative result does not exclude the possibility of low levels of infection or sampling error. 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 No LMP recorded. Periods are [...] Abnormal Pap smear of cervix 2007- in [place]. had LEEP. no abn pap since * [...] Intravenous Push route. * Cholecalciferol 1.25 MG (47719 UT) TABS Take 50,000 Units by mouth once weekly. * Nrszdgkr-Cfc-Il-FA (Mynatal) CAPS Take by mouth. 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 Normal [facility] Winder Operator Authentication Interface Message Text Patient at [...] bandage applied. Site appears normal. Normal [facility] Filter Paper Leadon 11-24-20 20 Lead <2 Normal <5 [facility] Lead Interpretation Normal [facility] Comment on above: Result Comment: Occu pationally exposed adults lead >40 requires medical followup. This test was developed and its performance characteristics determined by [facility]. It has not been cleared or approved by the U.S. Food and Drug Administration. The FDA has determined that such clearance or approval is not necessary. This test is used for clinical purposes. It should not be regarded as investigational or for research. Type of Puncture Capillary Specimen Normal [facility] Vital Signs Date Time Vital Sign Value Performing Clinician Facility 09-22-2024 08:42-0500 Body height 167.6 cm Estella Dutton [facility] 09-22-2024 08:42-0500 Body mass index (BMI) [Ratio] 20.98 kg/m2 Estella Dutton [facility] 09-22-2024 08:42-0500 Body weight 58.97 kg Estella Dutton [facility] 09-07-2024 14:28-0400 Body mass index (BMI) [Ratio] 22.02 kg/m2 Jahaira GRIGGS Work Phone: [facility] 09-07-2024 14:28-0400 Body weight 62.82 kg Jahaira GRIGGS Work Phone: [facility] 09-07-2024 14:28-0400 Diastolic blood pressure 72 mm[Hg] Jahaira GRIGGS Work Phone: [facility] 09-07-2024 14:28-0400 Systolic blood pressure 112 mm[Hg] Jahaira GRIGGS Work Phone: [facility] 08-26-2024 19:22-0400 Body mass index (BMI) [Ratio] 22.26 kg/m2 Aleyda GRIGGS Work Phone: [facility] 08-26-2024 19:22-0400 Body temperature 98.01 [degF] Aleyda GRIGGS Work Phone: [facility] 08-26-2024 19:22-0400 Body weight 63.5 kg Aleyda GRIGGS Work Phone: [facility] 08-26-2024 19:22-0400 Diastolic blood pressure 70 mm[Hg] Aleyda Hemmer PA Work Phone: [facility] 08-26-2024 19:22-0400 Heart rate 102 /min Aleyda Hemmer PA Work Phone: [facility] 08-26-2024 19:22-0400 SaO2% (BldA) [Mass fraction] 98 % Aleyda Hemmer PA Work Phone: [facility] 08-26-2024 19:22-0400 Systolic blood pressure 122 mm[Hg] Aleyda Hemmer PA Work Phone: [facility] 08-24-2024 10:30-0400 Body mass index (BMI) [Ratio] 21.96 kg/m2 Jahaira Modesta PA Work Phone: [facility] 08-24-2024 10:30-0400 Body weight 62.65 kg Jahaira Modesta PA Work Phone: [facility] 08-24-2024 10:30-0400 Diastolic blood pressure 70 mm[Hg] Jahaira [place] PA Work Phone: [facility] 08-24-2024 10:30-0400 Systolic blood pressure 120 mm[Hg] Jahaira Modesta PA Work Phone: [facility] 08-17-2024 14:43-0400 Body height 168.9 cm Janice Escobar MD Work Phone: [facility] 08-17-2024 14:43-0400 Body mass index (BMI) [Ratio] 21.94 kg/m2 Janice Escobar MD Work Phone: [facility] 08-17-2024 14:43-0400 Body weight 62.6 kg Janice Escobar MD Work Phone: [facility] 08-17-2024 14:43-0400 Diastolic blood pressure 71 mm[Hg] Janice Escobar MD Work Phone: [facility] 08-17-2024 14:43-0400 Heart rate 93 /min Janice Escobar MD Work Phone: [facility] 08-17-2024 14:43-0400 Systolic blood pressure 105 mm[Hg] Janice Escobar MD Work Phone: [facility] 08-10-2024 10:06-0400 Body mass index (BMI) [Ratio] 21.91 kg/m2 Clarke Mayte DO Work Phone: [facility] 08-10-2024 10:06-0400 Body weight 62.51 kg Clarke Mayte DO Work Phone: [facility] 08-10-2024 10:06-0400 Diastolic blood pressure 70 mm[Hg] Clarke Mayte DO Work Phone: [facility] 08-10-2024 10:06-0400 Systolic blood pressure 104 mm[Hg] Clarke Mayte DO Work Phone: [facility] 07-19-2024 12:03-0400 Body height 167.[address] MD Work Phone: [facility] 07-19-2024 12:03-0400 Body mass index (BMI) [Ratio] 21.88 kg/m2 Janice Lane MD Work Phone: [facility] 07-19-2024 12:03-0400 Body temperature 97.59 [degF] Janice Lane MD Work Phone: [facility] 07-19-2024 12:03-0400 Body weight 61.[address] MD Work Phone: [facility] 07-19-2024 12:03-0400 Diastolic blood pressure 67 mm[Hg] Janice Lane MD Work Phone: [facility] 07-19-2024 12:03-0400 Heart rate 86 /min Janice Lane MD Work Phone: [facility] 07-19-2024 12:03-0400 SaO2% (BldA) [Mass fraction] 99 % Janice Lane MD Work Phone: [facility] 07-19-2024 12:03-0400 Systolic blood pressure 107 mm[Hg] Janice Lane MD Work Phone: [facility] 03-04-2024 13:00-0400 Body height 168.[address] MD Work Phone: [facility] 03-04-2024 13:00-0400 Body mass index (BMI) [Ratio] 19.52 kg/m2 Janice Lane MD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 VITAMIN D 25 HYDROXY Lab Routine Vitamin D deficiency 04/25/2022 11:12 AM EDT [facility] Work Phone: Bacteria identified in Genital specimen by Aerobe culture [facility] Work Phone: Comprehensive metabo lic 2000 panel - Serum or Plasma COMP METABOLIC PANEL Lab Routine Multiple sclerosis ([facility]) 04/25/2022 11:12 AM EDT [facility] Work Phone: ECG COMPLETE ECG COMPLETE ECG Routine Vasovagal syncope Ordered: 07/19/2024 [facility] Work Phone: Comment on above: Ordered: 07/19/2024 End: 04-25-2023 EPIL EEG ROUTINE EPIL EEG ROUTINE NEUROLOGY Routine Multiple sclerosis ([facility]) 1 Occurrences starting 04/25/2022 until 04/25/2023 [facility] Work Phone: Comment on above: 1 Occurrences starti ng 04/25/2022 until 04/25/2023 Glucose measurement estimated from glycated hemoglobin [facility] End: 06-08-2025 HOME SLEEP APNEA TEST (HSAT) HOME SLEEP APNEA TEST (HSAT) Procedures Routine Snoring Chronic insomnia Malaise and fatigue At risk for obstructive sleep apnea 1 Occurrences starting 06/08/2024 until 06/08/2025 [facility] Work Phone: Comment on above: 1 Occurrences starti ng 06/08/2024 until 06/08/2025 IgG [Mass/volume] in Serum or Plasma IGG Lab Routine Multiple sclerosis (HCC) 04/25/2022 11:12 AM EDT [facility] Work Phone: IgM [Mass/volume] in Serum or Plasma IGM Lab Routine Multiple sclerosis (HCC) 04/25/2022 11:12 AM EDT [facility] Work Phone: End: 01-23-2025 MR Thoracic spine WO and W contrast IV MRI THORACIC SPINE WO/W IVCON Radiology Routine Multiple sclerosis (HCC) 1 Occurrences starting 12/25/2023 until 01/23/2025 [facility] Work Phone: Comment on above: 1 Occurrences starti ng 12/25/2023 until 01/23/2025 OT PLAN OF CARE CERTIFICATION OT PLAN OF CARE CERTIFICATION Procedures Routine Multiple sclerosis (HCC) Abnormal antibody titer Neurogenic bladder Lack of coordination Ordered: 05/30/2022 [facility] Work Phone: Comment on above: Ordered: 05/30/2022 Patient Education [facility] Work Phone: Patient referral [facility] Work Phone: PT PLAN OF CARE CERTIFICATION PT PLAN OF CARE CERTIFICATION Procedures Routine Abnormality of gait Multiple sclerosis (HCC) Ordered: 07/22/2022 [facility] Work Phone: Comment on above: Ordered: 07/22/2022 SPEECH PLAN OF CARE CERTIFICATION SPEECH PLAN OF CARE CERTIFICATION Procedures Routine Multiple sclerosis (HCC) Cognitive communication deficit Ordered: 05/30/2022 [facility] Work Phone: Comment on above: Ordered: 05/30/2022 SPEECH PLAN OF CARE CERTIFICATION SPEECH PLAN OF CARE CERTIFICATION Procedures Routine Cognitive communication deficit Ordered: 07/22/2022 [facility] Work Phone: Comment on above: Ordered: 07/22/2022 US for US OB follow UP transabdominal approach Imaging Routine Encounter for supervision of normal , unspecified, unspecified trimester 09/17/2024 3:04 PM [facility] Service Area Work Phone: VARICELLA ZOSTER IGG VARICELLA Z YARELIS IGG Lab Routine Multiple sclerosis (HCC) 04/25/2022 11:12 AM EDT [facility] Work Phone: End: 04-03-2025 XR Cervical spine AP and Lateral and oblique XR CERV OTHER 4V AP/LAT/OBL Radiology Routine Neck pain 1 Occurrences starting 03/04/2024 until 04/03/2025 [facility] Work Phone: Comment on above: 1 Occurrences starti ng 03/04/2024 until 04/03/2025 XR Cervical spine AP and Lateral and oblique XR CERV OTHER 4V AP/LAT/OBL Radiology Routine Neck pain 03/04/2024 2:13 PM EDT [facility] End: 04-03-2025 XR Lumbar spine 3 Views XR LUMBAR GENERAL 3V AP/LAT/L5-S1 Radiology Routine Chronic midline low back pain without sciatica 1 Occurrences starting 03/04/2024 until 04/03/2025 [facility] Comment on above: 1 Occurrences starti ng 03/04/2024 until 04/03/2025 XR Lumbar spine 3 Views XR LUMBA R GENERAL 3V AP/LAT/L5-S1 Radiology Routine Chronic midline low back pain without sciatica 03/04/2024 2:12 PM EDT [facility] IO-Rnvisnztif-M roe [facility] [address] Work Phone: [facility] NEGATED: Highlighted row has been ruled out! Planned Goals not documented [facility] Work Phone: Immunizations Immunization Date Immunization Notes Care Provider Jacob bush 11-20-2023 influenza, injectabl e, quadrivalent, preservative free Kenzie Mccall [facility] 11-20-2023 influenza virus vaccine, unspecified formulation Kenzie Mccall [facility] 01-15-2022 tetanus toxoid, redu minor diphtheria toxoid, and acellular pertussis vaccine, adsorbed Nidia Garcia MD Work Phone: [facility] Payers Date Payer Category Payer Self-pay [id number] 2023 Medicare (Managed Care) 1.2. [id number] 2023 Private Health Insurance [id number] 2022 Unknown [id number] [id number] .[id number] 2021 Medicare [employer] BY [facility] SNP [id number] 2021-Present [phone] [address] [place] [address] O [id number] 2021 Medicare [id number]. [id number] .[id number] 2020 Private Health Insurance [id number] 2020 Medicaid MEDICAID [facility] MEDICAID [id number] 2020-Present [phone] [address] [place] [address] Medicaid [id number] 2020 Medicaid [id number]. [id number] .[id number] 2020 Medicaid [id number] 1985 Unknown [id number] 2.16.840.1.944903.3.579.2.7 32 1985 Unknown [id number] 2.16.840.1.321027.3.579.2.1 245 1985 Unknown [id number] 2.16.840.1.343430.3.579.2.1 245 1985 Unknown [id number] 2.16.840.1.970152.3.579.2.1 245 1985 Unknown [id number] 2.16.840.1.652019.3.579.2.1 245 1985 Unknown [id number] 2.16.840.1.913967.3.579.2.1 245 1985 Unknown [id number] 2.16.840.1.925468.3.579.2.1 245 1985 Unknown [id number] 2.16.840.1.276697.3.579.2.1 245 1985 Unknown [id number] 2.16.840.1.203911.3.579.2.1 259 1985 Unknown [id number] 2.16.840.1.008445.3.579.2.1 259 1985 Unknown [id number] 2.16.840.1.451634.3.579.2.1 259 1985 Unknown [id number] 2.16.840.1.414870.3.579.2.1 259 1985 Unknown [id number] 2.16.840.1.436685.3.579.2.1 259 1985 Unknown [id number] 2.16.840.1.864460.3.579.2.1 259 1985 Unknown [id number] 2.16.840.1.752418.3.579.2.1 259 1985 Unknown [id number] 2.16.840.1.376240.3.579.2.1 259 1985 Unknown [id number] 2.16.840.1.729504.3.579.2.1 259 1985 Unknown [id number] 2.16.840.1.627760.3.579.2.1 259 1985 Unknown [id number] 2.16.840.1.442824.3.579.2.1 259 1985 Unknown [id number] 2.16.840.1.758502.3.579.2.1 259 1985 Unknown [id number] 2.16.840.1.919858.3.579.2.1 259 1985 Unknown [id number] 2.16.840.1.193218.3.579.2.1 259 1985 Unknown [id number] 2.16.840.1.175325.3.579.2.1 259 1985 Unknown [id number] 2.16.840.1.353841.3.579.2.1 259 1985 Unknown [id number] 2.16.840.1.110181.3.579.2.1 259 1985 Unknown [id number] 2.16.840.1.520476.3.579.2.1 259 1985 Unknown [id number] 2.16.840.1.000167.3.579.2.1 259 1985 Unknown [id number] 2.16.840.1.758750.3.579.2.1 259 1985 Unknown [id number] 2.16.840.1.481803.3.579.2.1 259 1985 Unknown [id number] 2.16.840.1.169045.3.579.2.1 259 Medicaid [id number] Medicare [id number] Unknown [id number] 2.16.840.1.366741.3.579.2.5 31 Unknown [id number] 2.16.840.1.829817.3.579.2.5 31 Unknown [id number] 2.16.840.1.997146.3.579.2.5 31 Unknown [id number] 2.16.840.1.346129.3.579.2.5 31 Social History Date Type Detail Facility [facility] Start: 1985 Sex Assigned At Female C [facility] Start: 11-15-2019 End: 07-17-2023 Tobacco smoking status NHIS Never smoked tobacco [facility] Start: 11-15-2019 End: 07-17-2023 Tobacco use and exposure Smokeless tobacco non-user [facility] Start: 01-15-2022 End: 08-30-2024 Alcohol intake Ex-drinker (finding) [facility] Start: 11-15-2019 History SDOH Alcohol Comment occas [facility] Start: 03-16-2022 End: 09-17-2024 Exposure to SARS-CoV-2 (event) Not sure [facility] Start: 04-25-2022 Education 17 [facility] Start: 12-16-2022 History SDOH Alcohol Frequency 1 [facility] Start: 12-16-2022 History SDOH Alcohol Std Drinks 0 [facility] Start: 12-16-2022 History SDOH Social Connections Phone 4 [facility] Start: 12-16-2022 History SDOH Social Connections Membership 2 [facility] Start: 12-16-2022 History SDOH Social Connections Living 7 [facility] Start: 12-16-2022 History SDOH Physica l Activity MPS 3 [facility] Start: 12-16-2022 History SDOH Stress 5 [facility] Start: 12-16-2022 End: 07-17-2023 History of Social function [facility] Start: 12-16-2022 End: 07-17-2023 Social connection and isolation panel [facility] Do you belong to any clubs or organizations such as hindu groups, unions, fraternal or athletic groups, or school groups? No [facility] Are you now , , , , never or living with a partner? Never [facility] How often to you hav e a drink containing alcohol? Never [facility] How many standard drinks containing alcohol do you have on a typical day? Patient does not drink [facility] How hard is it for y ou to pay for the very basics like food, housing, medical care, and heating Somewhat hard [facility] Do you feel stress - tense, restless, nervous, or anxious, or unable to sleep at night because your mind is troubled all the time - these days [OSQ] Very much [facility] (I/We) worried wheth er (my/our) food would run out before (I/we) got money to buy more. Often true [facility] Start: 12-23-2020 Gender identity Identifies as female gender (finding) [facility] Start: 12-23-2020 Sexual orientation Heterosexual (brandin whalen) [facility] History of tobacco use Passive smoker [facility] Start: 12-11-2023 End: 09-21-2024 Alcohol intake Lifetime non-drinker (finding) [facility] Start: 02-04-2024 [facility] NEGATED: Highlighted row - - LM-Fnpoqoiftt-Ljkst vahid 23[address] Work Phone: Goals Date Patient Goal Desired Activity /State Personal health goal Personal health goal Personal health goal Functional Status Date Assessment Result Facility NEGATED: Highlighted row Functional performance Functional status health issues are not documented Disease [facility] vahid 23[address] Work Phone: Mental Status Date Assessment Result Facility NEGATED: Highlighted row Cognitive function [Interpretation] Cognitive status health issues are not documented Disease [facility] [address] Work Phone: Clinical Notes 04-17-2021 to 09-22-2024 Estella Dutton, RD - 09/22/2024 8:[address], PT, DPT - 09/21/2024 10:[address] PT, DPT - 09/21/2024 9:39 AM Kenzie Bess RP - 09/20/2024 10:23 AM EST Note Date & Type Note Facility 09-22-2024 History of Present illness Narrative [facility] Nutrition Therapy: Virtual Consult - Initial Assessment I have communicated my name and active licensure. The patient s identity and physical location were verified at the time of this visit. Either the patient or their legal account executive sales representative has been informed of the [...] TIME: 8:41 AM documented in this encounter [facility] 09-21-2024 History of Present illness Narrative Program_ID:[id number] Access Code: [email or web address] URL: [email or web address] Date: 09-21-2024 Prepared By: Estrella Sorto Program [...] therapeutic exercises was facilitated with verbal cuing. Self-Correction Management: 1: discussed importance of focus through [...] Sorto PT, DPT documented in this encounter [facility] 09-21-2024 Note HNO ID: [id number] Author: ESTRELLA SORTO PT, DPT Service: ? [...] therapeutic exercises was facilitated with verbal cuing. Self-Correction Management: 1: discussed importance of focus through [...] and agreed upon. Estrella Sorto, PT, DPT [facility] 09-20-2024 Note HNO ID: [id number] Author: IBAN LAZO, PhD Service: ? Author Type: Psychologist Type: Progress Notes Filed: 09/20/2024 14:26 Note Text: Behavioral Sleep Medicine Follow up Iban Lazo, PhD I have communicated my name and active licensure. The patient's identity and physical location were verified at the time of this visit. Either the patient or their legal account executive sales representative has been informed of the risks and benefits of -- and alternatives to -- treatment through a remote evaluation and consents to proceed with the evaluation remotely. Contact Method: Zoom Patient Confirmed Address: [address] [place] [address] Patient Confirmed Telephone #: [phone] Time: 40 minutes Individual Psychotherapy Session # [...] for 3-6 months [facility] We discussed that we could [...] disorder RLS Multiple sclerosis PROGRESS TO DATE: Wool Sacker Progress: Condition at intake Short Term Condition: [...] and post . Iban Lazo, PhD, Psychologist ([place] license [id number]) [facility] 09-20-2024 History of Present illness Narrative [...] been reviewed prior to dispensing the medication. Director Drug Safety Assessment Patient confirmed: Yes Med/dose confirmed: Yes Supplies needed: No supplies needed Missed doses: No Estimated days supply on hand: 1 Delivery method: FedEx Signature required: No Delivery address: [address] [place] [address] [address] Delivery date: 09/22/24 Questions or [...] (FLONASE) 50 mcg/actuation nasal spray Use 1 Lipan in each nostril once daily. No current facility-administered medications on file prior to visit. [facility] RX SPECIALTY CLINICAL ASSESSMENT - [...] without relapses Previous disease therapies: - Betaseron 1352-2719 - Copaxone 6282-1821 - Tysabri 2009-Summer 2019 (stopped due to planned ) - Copaxone 8746-8932 (during ) - Ocrevus (02/28/21 through 09/25/23, [...] Kenzie Mccall RPh documented in this encounter [facility] 09-20-2024 Note HNO ID: [id number] Author: KENZIE MCCALL RPh Service: ? Author [...] been reviewed prior to dispensing the medication. Director Drug Safety Assessment Patient confirmed: Yes Med/dose confirmed: Yes Supplies needed: No supplies needed Missed doses: No Estimated days supply on hand: 1 Delivery method: FedEx Signature required: No Delivery address: [address] [place] [address] [address] Delivery date: 09/22/24 Questions or [...] (FLONASE) 50 mcg/actuation nasal spray Use 1 Lipan in each nostril once daily. No current facility-administered medications on file prior to visit. [facility] RX SPECIALTY CLINICAL ASSESSMENT - [...] without relapses Previous disease therapies: - Betaseron 6446-5908 - Copaxone 8892-7718 - Tysabri 2009-Summer 2019 (stopped due to planned ) - Copaxone 8930-9187 (during ) - Ocrevus (02/28/21 through 09/25/23, [...] Treatment Duration: No information available Kenzie Mccall [facility] 09-03-2024 History of Present illness Narrative Program_ID:[id number] Access Code: [email or web address] URL: [email or web address] Date: 09-03-2024 Prepared By: Estrella Sorto Program [...] Goals for Episode of Care: established 09/03/24 [place] in home exercise program. Patient will decrease [...] Planned: 4 Planned Treatment Interventions: Therapeutic exercise (91669), Neuromuscular re-education (63944), Manual therapy (98827), Therapeutic activities (77274), Self-halfway management (98099), Gait Training (59248), Patient/Family/Caregiver Education PLAN FOR NEXT VISIT: Continue [...] Demonstration TREATMENT: PT Treatment Interventions: Therapeutic Exercise, Self-Correction Management Evaluation Evaluation Therapeutic Exercise: 1: *seated [...] use of heat and parameters for each. Self-Correction Management: 1: educated through diagnosis, prognosis, plan [...] Sorto PT, DPT documented in this encounter [facility] 09-03-2024 Note HNO ID: [id number] Author: ESTRELLA SORTO PT, DPT Service: ? [...] Goals for Episode of Care: established 09/03/24 [place] in home exercise program. Patient will decrease [...] Planned: 4 Planned Treatment Interventions: Therapeutic exercise (95205), Neuromuscular re-education (47431), Manual therapy (99557), Therapeutic activities (78030), Self-halfway management (08526), Gait Training (75721), Patient/Family/Caregiver Education PLAN FOR NEXT VISIT: Continue [...] R Hip Pa (more content not included)... [facility] 09-02-2024 Telephone encounter Note Duplicate message Closing this encounter [facility] 09-02-2024 Miscellaneous Notes Duplicate message Closing this encounter documented in this encounter [facility] 08-30-2024 Note HNO ID: [id number] Author: ART SWENSON OD Service: ? Author Type: CRITICAL POWER INSTALL TECHNICIAN Type: Progress Notes Filed: 08/30/2024 16:40 Note [...] her +++ August 30, 2024 4:35 PM [facility] 08-30-2024 History of Present illness Narrative [...] 2024 4:35 PM documented in this encounter [facility] 08-26-2024 History of Present illness Narrative Images [...] the morning. cholecalciferol (Vitamin D3) 1.25 MG (69618 UT) tablet Take 1.25 mg by mouth once a week clotrimazole-betamethasone (Lotrisone) cream Apply 1 application topically Daily Apply to affected area daily for 7 days 45 g 0 ergocalciferol (Vitamin D-2) 1.25 MG (54548 UT) capsule Take 50,000 Units by mouth [...] (Elocon) 0.1 % cream Apply topically Daily Ddgeyuka-Rja-Mt-FA (Jenliva /) 1 MG capsule Take by [...] Hypocalcemia Hypoglycemia Low iron MS (multiple sclerosis) ([facility]) Urinary incontinence 2008 Past Surgical History: Procedure [...] above. BALDOMERO ShepherdC documented in this encounter [facility] 08-24-2024 History of Present illness Narrative Reason [...] mometasone (Elocon) 0.1 % cream Daily RT Dwhmuvbt-Fws-Jo-FA (Jenliva /) 1 MG capsule Take by [...] Hypocalcemia Hypoglycemia Low iron MS (multiple sclerosis) ([facility]) Urinary incontinence 2009 HISTORY PAST MEDICAL HISTORY SOCIAL HISTORY Past Medical History: Diagnosis Date Abnormal Pap smear of cervix 2007 Bacterial vaginosis 2019 Hypocalcemia Hypoglycemia Low iron MS (multiple sclerosis) ([facility]) Urinary incontinence 2009 Social History Tobacco Use [...] nursing note reviewed. Exam conducted with a insurance sales executive present. Vitals: Estimated body mass index is [...] dipstick manually resulted 3. MS (multiple sclerosis) (CMS/[facility]) G35 methylPREDNISolone (Medrol Dospak) 4 MG tablets [...] MS, we will send in medrol dose aubrie to help alleviate inflammation, stretched were discussed as well as getting a belly band. Pt verblaized understanding Orders Placed This Encounter Procedures POCT urinalysis dipstick manually resulted Follow Up: Patient is to return to office in 2 week for routine OB appointment. Documented by Camilla Rm LPN on behalf of: ANSON Mon documented in this encounter [facility] 08-18-2024 Note HNO ID: [id number] Author: CLARICE ZEPEDA HUC Service: ? Author Type: Health Combat Control Manager Type: Progress Notes Filed: 08/18/2024 09:03 Note Text: Mialed OTC-Nutritional Suppl order to pt CAROL ANN MARTINEZ [address] [facility] [id number] [facility] 08-18-2024 History of Present illness Narrative Mialed OTC-Nutritional Suppl order to pt CAROL ANN MARTINEZ [address] [facility] [id number] documented in this encounter [facility] 08-17-2024 History of Present illness Narrative Subjective [...] MD Maternal Medicine documented in this encounter [facility] Work Phone: 08-17-2024 Telephone encounter Note Prescription signed and had to be printed, will send out Letter written and placed in chart Tor Hernandez APRN.CNP August 17, 2024 10:26 AM [facility] 08-17-2024 Miscellaneous Notes Prescription signed and had to be printed, will send out Letter written and placed in chart Tor Hernandez APRN.CNP August 17, 2024 10:26 AM documented in this encounter [facility] 08-16-2024 History of Present illness Narrative [facility] [...] been reviewed prior to dispensing the medication. Director Drug Safety Assessment Patient confirmed: Yes Med/dose confirmed: Yes Supplies needed: No supplies needed Missed doses: No Estimated days supply on hand: (maybe 2 weeks, not sure) Next cycle/dose due: 08/16/24 Copay amount: 0 Payment confirmed: Yes Delivery method: FedEx Signature required: Waived on patient request Delivery address: [address] [place] [address] Delivery date: 08/31/24 Questions or concerns for [...] (FLONASE) 50 mcg/actuation nasal spray Use 1 Lipan in each nostril once daily. No current facility-administered medications on file prior to visit. [facility] RX SPECIALTY CLINICAL ASSESSMENT - [...] inject where skin looks healthy. Training video ([employer] no longer supplies nurses for training, or injection devices) PFS supplied and training video https://www.[employer]/injectio n-assistance/cqq-fs-veszma DDI none pertinent Vaccines reviewed Est. Tx Plan Start Date: No information available Estimated Start Date Info: No information available Est. Estimated Treatment Duration: No information available Madison Puente (AssertID) documented in this encounter [facility] 08-16-2024 Note HNO ID: [id number] Author: KENZIE MCCALL RPh Service: ? Author [...] been reviewed prior to dispensing the medication. Director Drug Safety Assessment Patient confirmed: Yes Med/dose confirmed: Yes Supplies needed: No supplies needed Missed doses: No Estimated days supply on hand: (maybe 2 weeks, not sure) Next cycle/dose due: 08/16/24 Copay amount: 0 Payment confirmed: Yes Delivery method: FedEx Signature required: Waived on patient request Delivery address: [address] [place] [id number] Delivery date: 08/31/24 Questions or concerns for [...] (FLONASE) 50 mcg/actuation nasal spray Use 1 Lipan in each nostril once daily. No current facility-administered medications on file prior to visit. [facility] RX SPECIALTY CLINICAL ASSESSMENT - [...] inject where skin looks healthy. Training video ([employer] no longer supplies nurses for training, or injection devices) PFS supplied and training video https://www.[employer]/injectio n-assistance/lrj-no-dfbwpa DDI none pertinent Vaccines reviewed Est. Tx Plan Start Date: No information available Estimated Start Date Info: No information available Est. Estimated Treatment Duration: No information available Madison Puente (Earth Moving Technician) [facility] 08-10-[facility] History of Present illness Narrative [...] Vitamin (multivitamin) tablet 1 tablet, Oral, Daily Ongxjkss-Pmk-Jn-FA (Jenliva /) 1 MG capsule Oral Vit-Fe [...] Hypocalcemia Hypoglycemia Low iron MS (multiple sclerosis) ([facility]) Urinary incontinence 2009 HISTORY PAST MEDICAL HISTORY SOCIAL HISTORY Past Medical History: Diagnosis Date Abnormal Pap smear of cervix 2007 Bacterial vaginosis 2019 Hypocalcemia Hypoglycemia Low iron MS (multiple sclerosis) ([facility]) Urinary incontinence 2009 Social History Tobacco Use [...] nursing note reviewed. Exam conducted with a insurance sales executive present. Vitals: Estimated body mass index is [...] Clarke Hu DO documented in this encounter [facility] 07-30-2024 Note HNO ID: [id number] Author: IBAN LAZO, PhD Service: ? Author Type: Psychologist Type: Progress Notes Filed: 07/30/2024 16:31 Note Text: Behavioral Sleep Medicine Follow up Iban Lazo, PhD I have communicated my name and active licensure. The patient's identity and physical location were verified at the time of this visit. Either the patient or their legal account executive sales representative has been informed of the risks and benefits of -- and alternatives to -- treatment through a remote evaluation and consents to proceed with the evaluation remotely. Contact Method: Zoom Patient Confirmed Address: [address] [place], [place] [address] Patient Confirmed Telephone #: [phone] Time: 56 minutes Individual Psychotherapy Session # [...] disorder RLS Multiple sclerosis PROGRESS TO DATE: Wool Sacker Progress: Condition at intake Short Term Condition: [...] until feel sleepy (more content not included)... [facility] 07-20-2024 Instructions Germania Wilkinson MD - [...] hours of bedtime. documented in this encounter [facility] 07-20-2024 Note HNO ID: [id number] Author: GERMANIA WILKINSON MD Service: ? Author Type: Physician Type: Progress Notes Filed: 07/21/2024 15:38 Note Text: [facility] Follow up/ Established patient visit Date of last visit : 08/19/2023 I have communicated my name and active licensure. The patient's identity and physical location were verified at the time of this visit. Either the patient or their legal account executive sales representative has been informed of the [...] sorted in reverse-chronological order 04/13/2024 05/23/2024 07/08/2024 [place] Sleepiness Scale Score 0 (No clinically significant [...] mg by mo (more content not included)... [facility] 07-20-2024 History of Present illness Narrative Images from the original note were not included. [facility] Follow up/ Established patient visit Date of last visit : 08/19/2023 I have communicated my name and active licensure. The patient's identity and physical location were verified at the time of this visit. Either the patient or their legal account executive sales representative has been informed of the [...] sorted in reverse-chronological order 04/13/2024 05/23/2024 07/08/2024 [place] Sleepiness Scale Score 0 (No clinically significant [...] (FLONASE) 50 mcg/actuation nasal spray Use 1 Lipan in each nostril once daily. PHYSICAL EXAMINATION: NEUROLOGICAL EXAM: General: Awake, alert, speech fluent, comprehension, naming, repetition intact. Short and residential memory intact. IMPRESSION: Primary insomnia (primary encounter diagnosis) Rls (restless legs syndrome) Carol Ann Martinez is a 38 year old female with hx of MS and WINIFRED here for evaluation of insomnia, RLS. She is currently and has come off of trazodone for her insomnia. She is currently taking yphd-whm-cglepen Unisom without much benefit. Her sleep is [...] BSM for CBTi Germania Wilkinson MD Clinical [employer] Monitoring Technicianslasher machine operator [facility] documented in this encounter [facility] 07-19-2024 Note HNO ID: [id number] Author: JANICE LANE MD Service: ? Author [...] the hip. She is not taken anything imle-wmv-ehghoir for it. Patient has multiple sclerosis. Her [...] few seconds when she was on a rsquf-yb-fugxu with her daughter. She told her [employer] about the symptoms she has started to [...] mucosa, and tongue (more content not included)... [facility] 07-19-2024 History of Present illness Narrative [...] the hip. She is not taken anything pnxq-dfo-jpvaeah for it. Patient has multiple sclerosis. Her [...] few seconds when she was on a zxbne-kz-tfgfi with her daughter. She told her [employer] about the symptoms she has started to [...] by neurology. - CONSULT TO PHYSICAL THERAPY Pmczfhlua-aqwhge-vp with [employer] as scheduled. Patient said she is on pelvic rest and limited lifting due to shortened cervix. Viral URI-if symptoms worsen, take amoxicillin Dry skin on the nose-give a trial of Elocon cream Janice Lane MD documented in this encounter [facility] 07-19-2024 History of Present illness Narrative [facility] [...] been reviewed prior to dispensing the medication. Director Drug Safety Assessment Patient confirmed: Yes Med/dose confirmed: Yes Supplies needed: No supplies needed Missed doses: No Estimated days supply on hand: 3 Next cycle/dose due: 07/19/24 Copay amount: 0 Payment confirmed: Yes Delivery method: FedEx Signature required: Waived on patient request Delivery address: [address] [place] [address] Delivery date: 07/23/24 Questions or concerns for [...] (FLONASE) 50 mcg/actuation nasal spray Use 1 Lipan in each nostril once daily. No current facility-administered medications on file prior to visit. [facility] RX SPECIALTY CLINICAL ASSESSMENT - [...] inject where skin looks healthy. Training video ([employer] no longer supplies nurses for training, or injection devices) PFS supplied and training video https://www.[employer]/injectio n-assistance/nyr-ly-qrjein DDI none pertinent Vaccines reviewed Est. Tx Plan Start Date: No information available Estimated Start Date Info: No information available Est. Estimated Treatment Duration: No information available Madison Puente (AssertID) documented in this encounter [facility] 07-19-2024 Note HNO ID: [id number] Author: KENZIE MCCALL RPh Service: ? Author [...] been reviewed prior to dispensing the medication. Director Drug Safety Assessment Patient confirmed: Yes Med/dose confirmed: Yes Supplies needed: No supplies needed Missed doses: No Estimated days supply on hand: 3 Next cycle/dose due: 07/19/24 Copay amount: 0 Payment confirmed: Yes Delivery method: FedEx Signature required: Waived on patient request Delivery address: [address] [address] Delivery date: 07/23/24 Questions or concerns for [...] (FLONASE) 50 mcg/actuation nasal spray Use 1 Lipan in each nostril once daily. No current facility-administered medications on file prior to visit. [facility] RX SPECIALTY CLINICAL ASSESSMENT - [...] inject where skin looks healthy. Training video ([employer] no longer supplies nurses for training, or injection devices) PFS supplied and training video https://www.[employer]/injectio n-assistance/ifi-er-vkybux DDI none pertinent Vaccines reviewed Est. Tx Plan Start Date: No information available Estimated Start Date Info: No information (more content not included)... [facility] 07-08-2024 Note HNO ID: [id number] Author: IBAN LAZO, PhD Service: ? Author Type: Psychologist Type: Progress Notes Filed: 07/08/2024 14:21 Note Text: Behavioral Sleep Medicine Follow up Iban Lazo, PhD I have communicated my name and active licensure. The patient's identity and physical location were verified at the time of this visit. Either the patient or their legal account executive sales representative has been informed of the risks and benefits of -- and alternatives to -- treatment through a remote evaluation and consents to proceed with the evaluation remotely. Contact Method: Zoom and Doximity (switched to Doximity after Zoom connection issues) Patient Confirmed Address: [address] [place], [place] [address] Patient Confirmed Telephone #: [phone] Time: 55 minutes Individual Psychotherapy Session # [...] of HSAT results Iban Lazo, PhD, Psychologist ([place] license [id number]) [facility] 06-22-2024 Note HNO ID: [id number] Author: NATALIE NEWBERRY RPh Service: ? Author [...] disease state markers and outcomes. Natalie [facility] Director Drug Safety Assessment Patient confirmed: Yes Med/dose confirmed: Yes Supplies needed: No supplies needed Missed doses: No Estimated days supply on hand: 7 Next cycle/dose due: 06/23/24 Copay amount: 0 Delivery method: FedEx Signature required: Waived on patient request Delivery address: [address] [place] [address] Delivery date: 06/25/24 Questions or concerns for [...] (FLONASE) 50 mcg/actuation nasal spray Use 1 Lipan in each nostril once daily. No current facility-administered medications on file prior to visit. [facility] RX SPECIALTY CLINICAL ASSESSMENT - [...] inject where skin looks healthy. Training video ([employer] no longer supplies nurses for training, or injection devices) PFS supplied and training video https://www.[employer]/injectio n-assistance/nzl-rb-bliqpg DDI none pertinent Vaccines reviewed Est. Tx Plan Start Date: No information available Estimated Start Date Info: No information available Est. Estimated Treatment Duration: No information available Rian (more content not included)... [facility] 06-22-2024 Telephone encounter Note The following approved medication requests have been transmitted electronically. Requested Prescriptions Signed Prescriptions Disp Refills glatiramer (COPAXONE) 40 mg/mL injection 12 mL 5 Sig: Inject 40 mg subcutaneously every Friday, Friday, and Friday. Authorizing Provider: TOR HERNANDEZ APRN.BUS INSPECTOR [facility] 06-22-2024 Miscellaneous Notes The following approved medication requests have been transmitted electronically. Requested Prescriptions Signed Prescriptions Disp Refills glatiramer (COPAXONE) 40 mg/mL injection 12 mL 5 Sig: Inject 40 mg subcutaneously every Friday, Friday, and Friday. Authorizing Provider: TOR HERNANDEZ APRN.BUS INSPECTOR Patient is in need of a new prescription as follows: Requested Prescriptions Pending Prescriptions Disp Refills glatiramer (COPAXONE) 40 mg/mL injection 12 mL 5 Sig: Inject 40 mg subcutaneously every Friday, Friday, and Friday. Last office visit 06-09-24 Please review and advise. Marcin Ervin RPh documented in this encounter [facility] 06-22-2024 Telephone encounter Note Patient is in need of a new prescription as follows: Requested Prescriptions Pending Prescriptions Disp Refills glatiramer (COPAXONE) 40 mg/mL injection 12 mL 5 Sig: Inject 40 mg subcutaneously every Friday, Friday, and Friday. Last office visit 06-09-24 Please review and advise. Marcin Ervin RPh [facility] 06-16-2024 Note HNO ID: [id number] Author: JOSR VICENTE, PhD Service: ? Author [...] Circadian Rhythm delayed. 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 [place] : Josr Vicente, PhD, [facility] Psychologist ([place] License [id number]) Behavioral Sleep Medicine Disclosure: There are limitations of actigraphy data. This test is not a measure of daytime sleepiness or insomnia. Findings may suggest the etiology of sleepiness due to an observed pattern or help in the understanding of patterns associated with conditions being evaluated [facility] 06-14-2024 Note HNO ID: [id number] Author: ?, ?, ? Service: ? Author Type: ? Type: Progress Notes Filed: 06/14/2024 14:32 Note Text: Returned with logs [facility] 06-14-2024 History of Present illness Narrative Returned with logs Called patient to return watch ACTIGRAPHY DEVICE #[id number] Date shipped out 05/25/2024 [employer] MAIL OUT TRACKING NUMBER [id number] [employer]ex RETURN TRACKING NUMBER [id number], Achasah documented in this encounter [facility] 06-11-2024 Telephone encounter Note This REFINING SUPERVISOR put in a referral to the [facility] for pt to get connected to additional resources. DEZ Archer, [facility] Social Work [facility] 06-11-2024 Miscellaneous Notes This REFINING SUPERVISOR put in a referral to the [facility] for pt to get connected to additional resources. DEZ Archer, [facility] Social Work documented in this encounter [facility] 06-11-2024 Note HNO ID: [id number] Author: ?, ?, ? Service: ? Author Type: ? Type: Progress Notes Filed: 06/14/2024 14:32 Note Text: Called patient to return watch [facility] 06-10-2024 Note HNO ID: [id number] Author: CLARICE ZEPEDA HUC Service: ? Author Type: Health Combat Control Manager Type: Progress Notes Filed: 06/10/2024 13:06 Note Text: Mailed-nutritional supplement OTC TO PATIENT [facility] 06-10-2024 History of Present illness Narrative Mailed-nutritional supplement OTC TO PATIENT documented in this encounter [facility] 06-09-2024 Instructions Tor Hernandez APRN.CNP - 06/09/2024 [...] soon after deliver documented in this encounter [facility] 06-09-2024 History of Present illness Narrative Images from the original note were not included. [facility] FOLLOWUP/ESTABLISHED VIRTUAL PATIENT VISIT PRINCIPAL NEUROLOGIC DIAGNOSIS: Multiple Sclerosis DISEASE SUMMARY Date of onset: 03/2007 Date of diagnosis of MS: 03/2007 Disease course at onset: Relapsing-Remitting Current disease course: Progressive without relapses Previous disease therapies: - Betaseron 6637-4588 - Copaxone 5744-2910 - Tysabri 2009-Summer 2019 (stopped due to [...] over 3 weeks following occipital relase - 9604-2522 recurrent OS ON - 6667-7797 several relapses including L numbness, weakness, constipation, urinary urgency - 2019 R weakness and numbness needing a wheelchair, hospitalized at [facility] (off Tysabri x3 months due to planning ). Also had OD vision loss at this time. At this time also notes substantial mold exposure due to it being all over her apt (has since moved). CHIEF COMPLAINT: MS symptom management Usual treating team: Esther/David Today's visit is being completed virtually over [employer]. I have communicated my name and active licensure. The patient's identity and physical location were verified at the time of this visit. Either the patient or their legal account executive sales representative has been informed of the [...] Flowsheet Row Social Work from 01/21/[address] [facility] Office Visit from 07/23/[address] [facility] Office Visit from 01/17/[address] [facility] Upper Extremity Domain T Score 28 28.29 [...] Flowsheet Row Social Work from 01/21/[address] [facility] Office Visit from 07/23/[address] [facility] Office Visit from 01/17/[address] [facility] Sleep Domain T Score 66 69.2 68.89 [...] lower extremity (04/17/2021), Multiple sclerosis (HCC), Seizure ([facility]), and Thyroid disease. She has no past medical history of Asthma, Blood dyscrasia, Breast disorder, Chlamydia, Chronic kidney disease, Complication of anesthesia, Coronary artery disease, Diabetes ([facility]), Diabetes, gestational, Gonorrhea, Herpes simplex virus (HSV) infection, History of pre-eclampsia in prior , currently , HIV infection ([facility]), Hypertension, Infertility, female, Liver disease, Malignant hyperthermia due to anesthesia, Mental disorder, Placental abruption, depression, hemorrhage, Rh incompatibility, Sickle cell anemia ([facility]), Syphilis, or Systemic lupus erythematosus ([facility]). has a current medication list which includes the following prescription(s): OTC NUTRITIONAL SUPPLEMENT, glatiramer, magnesium oxide, cholecalciferol, ketoconazole, mirtazapine, norethindrone (contraceptive), vitamin b complex with c-fa-cu-zn renal vitamins, ferrous sulfate, multiple vitamin-minerals, dalfampridine er, norethindrone (contraceptive), ketoconazole, tizanidine, ocrelizumab, vitamin b complex, melatonin, and fluticasone. EXAM: LMP 12/21/2023 (Exact Date) MSPT Results Flowsheet Row Office Visit from 07/23/[address] [facility] Office Visit from 01/17/[address] [facility] Processing Speed Total Number Correct 52 [...] which included preparing to see the patient, xtsw-dn-gbuk patient care, completing clinical documentation, obtaining and/or reviewing separately obtained history, performing a medically appropriate examination, counseling and educating the patient/family/caregiver, communicating with other HCPs (not separately reported), independently interpreting results (not separately reported), and communicating results to the patient/family/caregiver. Tor Hernandez APRN.CNP [facility] for Multiple Sclerosis documented in this encounter [facility] 06-09-2024 Note HNO ID: [id number] Author: TOR HERNANDEZ APRN.CNP Service: ? Author Type: Nurse Practitioner Type: Progress Notes Filed: 06/09/2024 15:43 Note Text: [facility] FOLLOWUP/ESTABLISHED VIRTUAL PATIENT VISIT PRINCIPAL NEUROLOGIC DIAGNOSIS: Multiple Sclerosis DISEASE SUMMARY Date of onset: 03/2007 Date of diagnosis of MS: 03/2007 Disease course at onset: Relapsing-Remitting Current disease course: Progressive without relapses Previous disease therapies: - Betaseron 8965-3845 - Copaxone - Tysabri 2019 (stopped due [...] over 3 weeks following occipital relase - 5978-1837 recurrent OS ON - several relapses including L numbness, weakness, constipation, urinary urgency - 2019 R weakness and numbness needing a wheelchair, hospitalized at [facility] (off Tysabri x3 months due to planning ). Also had OD vision loss at this time. At this time also notes substantial mold exposure due to it being all over her apt (has since moved). CHIEF COMPLAINT: MS symptom management Usual treating team: Christina Today's visit is being completed virtually over [employer]. I have communicated my name and active licensure. The patient's identity and physical location were verified at the time of this visit. Either the patient or their legal account executive sales representative has been informed of the [...] Flowsheet Row Social Work from 01/21/[address] [facility] Office Visit from 07/23/[address] [facility] Office Visit from 01/17/[address] [facility] Upper Extremity Domain T Score 28 28.29 [...] [facility] Office Visit from 07/23/[address] [facility] Office Visit from 01/17/[address] [facility] Sleep Domain T Score 66 69.2 68.89 [...] Edema of lower extremity (04/17/2021), Multiple sclerosis ([facility]), Seizure ([facility]), and Thyroid disease. She has no past medical history of Asthma, Blood dyscrasia, Breast disorder, Chlamydia, Chronic kidney disease, Complication of anesthesia, Coronary artery disease, Diabetes ([facility]), Diabetes, gestational, Gonorrhea, Herpes simplex virus (HSV) infection, History of pre-eclampsia in prior , currently pregna (more content not included)... [facility] Instructions Germania Wilkinson MD - [...] is done to review results. - Call [phone] to schedule your sleep study and follow [...] the central scheduling system for the Neurological [place] at [phone]. [facility] website: [email or web address] documented in this encounter [facility] 06-08-2024 Note HNO ID: [id number] Author: GERMANIA WILKINSON MD Service: ? Author Type: Physician Type: Progress Notes Filed: 07/05/2024 23:04 Note Text: [facility] Follow up/ Established patient visit Date of last visit : 08/19/2023 I have communicated my name and active licensure. The patient's identity and physical location were verified at the time of this visit. Either the patient or their legal account executive sales representative has been informed of the [...] Syndrome Abnormal sleep/wake timing 03/19/2024 04/13/2024 05/23/2024 [place] Sleepiness Scale Score 0 (No clinically significant [...] (FLONASE) 50 mcg/actuation nasal spray Use 1 Lipan in each nostril once daily. Prior Hypersomnia/Narcolepsy [...] prescription Medication renetta (more content not included)... [facility] 06[facility] History of Present illness Narrative Images from the original note were not included. [facility] Follow up/ Established patient visit Date of last visit : 08/19/2023 I have communicated my name and active licensure. The patient's identity and physical location were verified at the time of this visit. Either the patient or their legal account executive sales representative has been informed of the [...] Syndrome Abnormal sleep/wake timing 03/19/2024 04/13/2024 05/23/2024 [place] Sleepiness Scale Score 0 (No clinically significant [...] (FLONASE) 50 mcg/actuation nasal spray Use 1 Lipan in each nostril once daily. Prior Hypersomnia/Narcolepsy [...] Germania Wilkinson MD documented in this encounter [facility] 05-27-2024 Note HNO ID: [id number] Author: IBAN LAZO, PhD Service: ? Author Type: Psychologist Type: Progress Notes Filed: 05/27/2024 18:02 Note Text: Behavioral Sleep Medicine Follow up Iban Lazo, PhD I have communicated my name and active licensure. The patient's identity and physical location were verified at the time of this visit. Either the patient or their legal account executive sales representative has been informed of the risks and benefits of -- and alternatives to -- treatment through a remote evaluation and consents to proceed with the evaluation remotely. 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 Pt indicated she was on her way to a medical facility to nut picker paperwork regarding her 2 week pelvic rest plan. Patient Confirmed Telephone #: [phone] Time: 33 minutes Individual Psychotherapy Session # [...] a vehicle not in her burns range- [employer]. She stated that she does not know [...] to avoid driving if sleepy/drowsy and to bone char puller to a safe space to rest if she does find herself drowsy/sleepy while driving. Pt noted that her COOK CASHIER FOOD PREP stated she could take Unisom to sleep during - asked pt to wait to take this medication until after she completes actigraphy testing as we want to get a sense of her baseline sleep rhythms. Pt verbalized understanding. Pt reported that sleep quality has been the same. Pt stated that she is working with a therapist at [facility] named Aravind Retana- she reported that they most recently have talked about helping her to stop shopping and learning how to say no to people. Pt provided verbal consent for this provider to contact Aravind Retana to discuss pt's case to coordinate care and provided his contact phone number: [phone] Discussed the following plan with patient Complete [...] disorder RLS Multiple sclerosis PROGRESS TO DATE: Wool Sacker Progress: Condition at intake Short Term Condition: [...] to start Uniso (more content not included)... [facility] 05-25-2024 Note HNO ID: [id number] Author: ?, ?, ? Service: ? Author Type: ? Type: Progress Notes Filed: 06/14/2024 14:32 Note Text: ACTIGRAPHY DEVICE #[id number] Date shipped out 05/25/2024 [employer] MAIL OUT TRACKING NUMBER [id number] [employer] RETURN TRACKING NUMBER [id number] [facility] 05-24-2024 History of Present illness Narrative [...] laboratory parameters, disease state markers and outcomes. Director Drug Safety Assessment Patient confirmed: Yes Med/dose confirmed: Yes Supplies needed: Alcohol swabs Missed doses: No Estimated days supply on hand: 10 Next cycle/dose due: 05/26/24 Copay amount: 0 Delivery method: FedEx Signature required: Waived on patient request Delivery address: [address] [address] Delivery date: 06/01/24 Questions or concerns for [...] (FLONASE) 50 mcg/actuation nasal spray Use 1 Lipan in each nostril once daily. No current facility-administered medications on file prior to visit. [facility] Visit Assessment - Neurology: [...] inject where skin looks healthy. Training video ([employer] no longer supplies nurses for training, or injection devices) PFS supplied and training video https://www.[employer]/injectio n-assistance/czs-ix-yzjqls DDI none pertinent Vaccines reviewed Jus Saucedo CPhT Neurology, Cardiology & Infectious Disease [facility] documented in this encounter [facility] 05-24-2024 Note HNO ID: [id number] Author: MARCIN ERVIN RPh Service: ? Author [...] markers and outcomes. Marcin Ervin, PharmD Pharmacist, [facility] General Utility Worker Assessment Patient confirmed: Yes Med/dose confirmed: Yes Supplies needed: Alcohol swabs Missed doses: No Estimated days supply on hand: 10 Next cycle/dose due: 05/26/24 Copay amount: 0 Delivery method: FedEx Signature required: Waived on patient request Delivery address: [address] [place] [address] Delivery date: 06/01/24 Questions or concerns for [...] (FLONASE) 50 mcg/actuation nasal spray Use 1 Lipan in each nostril once daily. No current facility-administered medications on file prior to visit. [facility] Visit Assessment - Neurology: [...] inject where skin looks healthy. Training video ([employer] no longer supplies nurses for training, or injection devices) PFS supplied and training video https://www.[employer]/injectio n-assistance/fpy-ju-jsrlyw DDI none pertinent Vaccines reviewed Refill Assessment: Assessment of injection issues or necrosis at injection sites: Yes Screening for infection: Yes Adverse reactions and mitigation: Yes Drug specific assessments, as appropriate: Yes Additional Assessment: S/Sx of relapse: No S/Sx of progression to secondary progressive disease: No (more content not included)... [facility] 05-10-2024 Note HNO ID: [id number] Author: IBAN LAZO, PhD Service: ? Author Type: Psychologist Type: Progress Notes Filed: 05/10/2024 14:16 Note Text: Appointment canceled. Pt logged on to visit but was located in a public setting and in the state of [place]. Explained that due to psychology licensure laws I cannot meet with patients unless they are physically located within the state of [place]. Pt stated she is returning to [place] on Wednesday 05/16. Next visit scheduled for 05/27. Iban Lazo, PhD, Psychologist ([place] license [id number]) [facility] 04-26-2024 History of Present illness Narrative [...] laboratory parameters, disease state markers and outcomes. Director Drug Safety Assessment Patient confirmed: Yes Med/dose confirmed: Yes Supplies needed: No supplies needed Missed doses: Yes Count of missed doses: 1 Reason for missed doses: stated medication misfired Estimated days supply on hand: 4 Next cycle/dose due: 04/26/24 Copay amount: 0 Payment confirmed: Yes Delivery method: FedEx Signature required: Waived on patient request Delivery address: [address] [place] [id number] Delivery date: 04/28/24 Questions or concerns for [...] (FLONASE) 50 mcg/actuation nasal spray Use 1 Lipan in each nostril once daily. No current facility-administered medications on file prior to visit. [facility] Visit Assessment - Neurology: [...] inject where skin looks healthy. Training video ([employer] no longer supplies nurses for training, or injection devices) PFS supplied and training video https://www.[employer]/injectio n-assistance/csz-yk-lttmfu DDI none pertinent Vaccines reviewed Jazmine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 Lane MD [address] [place] [address], [place] [address] PCP - General Family Medicine 12/09/19 Coat Check Attendant Relationship Specialty Start Date End Date Janice Lane MD [address] [place] [address], [place] [address] PCP - General Family Medicine 12/09/19 Coat Check Attendant Relationship Specialty Start Date End Date Janice Lane MD [address] [facility] [place] [address] PCP - General Family Medicine 12/09/19 Team Status: Inactive Member Role Status Dates Janice Lane MD Primary Care Provider Active Vishal Agarwal DO Emergency Provider Active Coat Check Attendant Relationship Specialty Start Date End Date Janice Lane MD [address] [facility] [place] [address] PCP - General Family Medicine 12/09/19 Coat Check Attendant Relationship Specialty Start Date End Date Janice Lane MD [address] [facility] [place] [address] PCP - General Family Medicine 12/09/19 Coat Check Attendant Relationship Specialty Start Date End Date Janice Lane MD [address] [facility] [place] [address] PCP - General Family Medicine 12/09/19 Coat Check Attendant Relationship Specialty Start Date End Date Janice Lane MD [address] [facility] [place] [address] PCP - General Family Medicine 12/09/19 Coat Check Attendant Relationship Specialty Start Date End Date Janice Lane MD [address] [facility] [place] [address] PCP - General Family Medicine 12/09/19 Coat Check Attendant Relationship Specialty Start Date End Date Janice Lane MD [address] [facility] [place] [address] PCP - General Family Medicine 12/09/19 Coat Check Attendant Relationship Specialty Start Date End Date Janice Lane MD [address] [facility] [place] [address] PCP - General Family Medicine 12/09/19 Coat Check Attendant Relationship Specialty Start Date End Date Janice Lane MD [address] [place] [address], [place] [address] PCP - General Family Medicine 12/09/19 Coat Check Attendant Relationship Specialty Start Date End Date Janice Lane MD [address] [place] [address], [place] [address] PCP - General Family Medicine 12/09/19 Coat Check Attendant Relationship Specialty Start Date End Date Janice Lane MD [address] [place] [address], [place] [address] PCP - General Family Medicine 12/09/19 Coat Check Attendant Relationship Specialty Start Date End Date Janice Lane MD [address] [facility] [place] [address] PCP - General Family Medicine 12/09/19 Coat Check Attendant Relationship Specialty Start Date End Date Janice Lane MD [address] [facility] [place] [address] PCP - General Family Medicine 12/09/19 Coat Check Attendant Relationship Specialty Start Date End Date Janice Lane MD [address] [facility] [place] [address] PCP - General Family Medicine 12/09/19 Coat Check Attendant Relationship Specialty Start Date End Date Janice Lane MD [address] [place] [place] [address] PCP - General Family Medicine 12/09/19 Coat Check Attendant Relationship Specialty Start Date End Date Janice Lane MD [address] [facility] [place] [address] PCP - General Family Medicine 12/09/19 Coat Check Attendant Relationship Specialty Start Date End Date Janice Lane MD [address] [facility] [place] [address] PCP - General Family Medicine 12/09/19 Coat Check Attendant Relationship Specialty Start Date End Date Janice Lane MD [address] [facility] [place] [address] PCP - General Family Medicine 12/09/19 Coat Check Attendant Relationship Specialty Start Date End Date Janice Lane MD [address] [facility] [place] [address] PCP - General Family Medicine 12/09/19 Coat Check Attendant Relationship Specialty [place] [address] [place] [address] PCP - General Pediatrics 10/26/23 Coat Check Attendant Relationship Specialty [place] [address] [place] [address] PCP - General Pediatrics 10/26/23 Coat Check Attendant Relationship Specialty Start Date End Date Janice Lane MD [address] [facility] [place] [address] PCP - General Family Medicine 12/09/19 Coat Check Attendant Relationship Specialty Start Date End Date Janice Lane MD [address] [facility] [place] [address] PCP - General Family Medicine 12/09/19 Coat Check Attendant Relationship Specialty Start Date End Date Janice Lane MD [address] [facility] [place] [address] PCP - General Family Medicine 12/09/19 Coat Check Attendant Relationship Specialty Start Date End Date Janice Lane MD [address] [place] [place] [address] PCP - General Family Medicine 12/09/19 Coat Check Attendant Relationship Specialty Start Date End Date Janice Lane MD [address] [facility] [place] [address] PCP - General Family Medicine 12/09/19 Coat Check Attendant Relationship Specialty Start Date End Date Janice Lane MD [address] [facility] [place] [address] PCP - General Family Medicine 12/09/19 Coat Check Attendant Relationship Specialty Start Date End Date Janice Lane MD [address] [place] [address] PCP - General Family Medicine 12/09/19 Team Status: Inactive Member Role Status Raj Lane MD Primary Care Provider Active Start: February 24, 2024 End: February 24, 2024 Clarke Hu Attending Provider Active Start: 2023 End: February 24, 2024 Coat Check Attendant Relationship Specialty Start Date End Date Janice Lane MD [address] [place] [address] PCP - General Family Medicine 12/09/19 Team Status: Inactive Member Role Status Raj Lane MD Primary Care Provider Active Start: March 17, 2024 End: March 17, 2024 Clarke Hu Attending Provider Active Start: Az shannan 2023 End: March 17, 2024 Coat Check Attendant Relationship Specialty Start Date End Date Janice Lane MD [address] [place] [address] PCP - General Family Medicine 12/09/19 Coat Check Attendant Relationship Specialty Start Date End Date Janice Lane MD [address] [place] [address] PCP - General Family Medicine 12/09/19 Coat Check Attendant Relationship Specialty Start Date End Date Janice Lane MD [address] [facility] [place] [address] PCP - General Family Medicine 12/09/19 Coat Check Attendant Relationship Specialty Start Date End Date Janice Lane MD [address] [place] [place] [address] PCP - General Family Medicine 12/09/19 Marcin Ervin, [facility] 05/30/24 Coat Check Attendant Relationship Specialty Start Date End Date Janice Lane MD [address] [place] [place] [address] PCP - General Family Medicine 12/09/19 Marcin Ervin, [facility] 05/30/24 Coat Check Attendant Relationship Specialty Start Date End Date Janice Lane MD [address] [place] [place] [address] PCP - General Family Medicine 12/09/19 Marcin Ervin, [facility] 05/30/24 Coat Check Attendant Relationship Specialty Start Date End Date Janice Lane MD [address] [place] [place] [address] PCP - General Family Medicine 12/09/19 Marcin Ervin, [facility] 05/30/24 Coat Check Attendant Relationship Specialty Start Date End Date Janice Lane MD [address] [place] [place] [address] PCP - General Family Medicine 12/09/19 Marcin Ervin, [facility] 05/30/24 Coat Check Attendant Relationship Specialty Start Date End Date Janice Lane MD [address] [facility] [place] [address] PCP - General Family Medicine 12/09/[facility] Coat Check Attendant Relationship Specialty Start Date End Date Janice Lane MD [address] [facility] [place] [address] PCP - General Family Medicine 12/09/19 Coat Check Attendant Relationship Specialty Start Date End Date Janice Lane MD [address] [place] [address] PCP - General Family Medicine 12/09/19 [facility] Coat Check Attendant Relationship Specialty Start Date End Date Janice Lane MD [address] [place] [place] [address] PCP - General Family Medicine 12/09/19 Coat Check Attendant Relationship Specialty Start Date End Date Janice Lane MD [address] [place] [place] [address] PCP - General Family Medicine 12/09/19 Coat Check Attendant Relationship Specialty Start Date End Date Janice Lane MD [address] [place] [place] [address] PCP - General Family Medicine 12/09/19 Coat Check Attendant Relationship Specialty [place] [address] [place] [address] PCP - General Pediatrics 10/26/23 Coat Check Attendant Relationship Specialty Start Date End Date Janice Lane MD [address] [place] [address] PCP - General Family Medicine 12/09/19 Marcin Ervin [facility] 05/30/24 Coat Check Attendant Relationship Specialty [place] [address] [place] [address] PCP - General 12/13/19 Nataly Tripathi APRN-BUS INSPECTOR [address] [place] [place] [address] Russian Language Professor Obstetrics 06/16/24 Coat Check Attendant Relationship Specialty [place] [address] [place] [address] PCP - General 12/13/19 Nataly Tripathi, [employer]ER SUPERVISOR-BUS INSPECTOR [address] [place] [place] [address] Russian Language Professor Obstetrics 06/16/24 Coat Check Attendant Relationship Specialty Start Date End Date Janice Lane MD [address] [place] [address] PCP - General Family Medicine 12/09/19 Marcin Ervin, [facility] 05/30/24 Coat Check Attendant Relationship Specialty [place] [address] [place] [address] PCP - General Pediatrics 10/26/23 Coat Check Attendant Relationship Specialty Start Date End Date Janice Lane MD [address] [place] [address] PCP - General Family Medicine 12/09/19 [facility] Coat Check Attendant Relationship Specialty Start Date End Date Janice Lane MD [address] [place] [address] PCP - General Family Medicine 12/09/19 [facility] Coat Check Attendant Relationship Specialty Start [place] [address] [place] [address] PCP - General Pediatrics 10/26/23 Coat Check Attendant Relationship Specialty [place] [address] [place] [address] PCP - General 12/13/19 Nataly Tripathi, [employer] H[employer]ER SUPERVISOR-BUS INSPECTOR [address] [place] [place] [address] Russian Language Professor Obstetrics 06/16/24 Coat Check Attendant Relationship Specialty [place] [address] [place] [address] PCP - General Pediatrics 10/26/23 Goals (unrecognized [...] BE BASED ON THE PRIMARY CLINICAL RECORDS. [facility] [employer] [facility]. provides no warranty or guarantee of the accuracy or completeness of information in this document.
== END 2024-10-04 20:35 | disposition home or self-care (01) ==
LOC: LAB 20:34
PROVIDERS: Visit Provider Physician Assistant
DX: Z34.93 Encounter for supervision of normal pregnancy, unspecified, third trimester (principal)
CPT/HCPCS: 87081; 87150

== ENCOUNTER 2024-10-05 06:27 | Outpatient (OUT) | payer MEDICARE, MEDICAID, SELFPAY ==
--- OUTSIDE RECORDS SUMMARY | 2024-10-05 06:31 | XMS_ITS | CCD ---
Author Organization 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, Nataly Amor Unavailable CLARKE HU APRIL Referring Unavailable JANICE LANE Primary Care Unavailable JANICE ESCOBAR Attending Unavailable JANICE LANE Primary Care Unavailable MAYTE, CLARKE CHEN Referring Unavailable JANICE LANE Primary Care Unavailable MAYTE, CLARKE APRIL Referring Unavailable JANICE LANE Primary Care Unavailable JANICE ESCOBAR Attending Unavailable JANICE LANE Primary Care Unavailable CLARKE HU APRIL Referring Unavailable JANICE LANE Primary Care Unavailable MAYTE, CLARKE APRIL Referring Unavailable JANICE LANE Primary Care Unavailable MODESTA, JAHAIRA Attending Unavailable MARVIN HOWARD Attending Unavailable MARVIN HOWARD Attending Unavailable MARVIN HOWARD Attending Unavailable KELECHI TATUM Attending Unavailable MAYTE, CLARKE Attending Unavailable MAYTE, CLARKE Attending Unavailable MAYTE, CLARKE Attending Unavailable MODESTA, JAHAIRA Attending Unavailable MAYTE, CLARKE Attending Unavailable NESHA ZELAYA Attending Unavailable MAYTE, CLARKE Attending Unavailable MAYTE, CLARKE Attending Unavailable MARVIN HOWARD Attending Unavailable MAYTE, CLARKE Attending Unavailable KELECHI TATUM Attending Unavailable MODESTA, JAHAIRA Attending Unavailable ALEYDA BURGESS Attending Unavailable MODESTA, JAHAIRA Attending Unavailable MAYTE, CLARKE Attending Unavailable MAYTE, CLARKE Attending Unavailable JANICE LANE Primary Care Unavailable JANICE LANE Attending Unavailable JANICE LANE Primary Care Unavailable ART SWENSON Attending Unavaila JANICE Nielsen Primary Care Unavailable IBAN LAZO Attending Unavailable JANICE LANE Primary Care Unavailable TOR HERNANDEZ Referring Unavailable ESTELLA DUTTON Attending Unavailable JANICE LANE Primary Care Unavailable RIMAJANICE Referring Unavailable RIMAJANICE Primary Care Unavailable RIMAJANICE Referring Unavailable RIMAJANICE Primary Care Unavailable IBAN LAZO Attending Unavailable JANICE LANE Primary Care Unavailable AYAN MARIE Attending Unavailable RIMAJANICE Primary Care Unavailable TOR HERNANDEZ Attending Unavailable RIMAJANICE Primary Care Unavailable RIMAJANICE Referring Unavailable RIMAJANICE Parks Primary Care Unavailable RIMAJANICE Referring Unavailable RIMAJANICE Primary Care Unavailable TOR HERNANDEZ Attending Unavailable JANICE LANE Primary Care Unavailable JAJA, SUNJEET Referring Unavailable RIMAJANICE Parks Primary Care Unavailable SELF Referring Unavailable IBAN LAZO Attending Unavailable JANICE LANE [...] Care Unavailable TOR HERNANDEZ Referring Unavailable JAJA, KARIET Attending Unavailable JANICE LANE Primary Care Unavailable NESHA SANTANA Referring Unavailable TOR HERNANDEZ Attending Unavailable JANICE LANE Primary Care Unavailable SELF Referring Unavailable CHAMP LEON Attending Unavailable JANICE LANE Primary Care Unavailable JANICE LANE Attending Unavailable JANICE LANE Primary Care Unavailable JANICE LANE Referring Unavailable JANICE LANE Primary Care Unavailable JAJA, SUNJEET Attending Unavailable JANICE LANE Primary Care Unavailable SELF Referring Unavailable IBAN LAZO Attending Unavailable Unavailable Unavailable Unavailable Allergies Allergy Classification Reported Allergen(s) Allergy Type Date of Onset Reaction(s) Facility Lecithin (1 source) Lecithin Drug Allergy 9 Other: See Comments, Unknown, Itching, GI Upset [facility] Soy (1 source) Soy protein Food Allergy 0 Intolerance [facility] Soybean Lecithin (1 source) Soybean Lecithin Drug Allergy 2 GI Upset, Unknown [facility] Wheat gluten extract (1 source) Wheat gluten extract Drug Allergy 9 Other: See Comments, Hives, Itching [facility] (2 sources) glutenin; Translations: [GLUTEN] Allergy to substance (finding) 9 [facility] Repository (20 sources) Soy protein; Translations: [SOY ALLERGY] Propensity to adverse reactions to drug (disorder) 0 Headache, Unknown [facility] Repository (20 sources) GLUTEN MEAL; Translations: [GLUTEN MEAL] Propensity to adverse reactions to drug (disorder) 9 Hives, Itching, Unknown [facility] Repository (1 source) LECITHIN ORGANIC-SOYBEAN LECITHIN; Translations: [LECITHIN ORGANIC-SOYBEAN LECITHIN] Propensity to adverse reactions to drug (disorder) 9 [facility] Repository (20 sources) Lecithin; Translations: [LECITHIN] Drug Allergy 9 Other: See Comments, Unknown, Itching, GI Upset, Nausea And Vomiting [facility] Work Phone: (20 sources) Soy protein; Translations: [SOY] Drug Intolerance 0 Intolerance [facility] (20 sources) Wheat gluten extract Drug Allergy 9 Other: See Comments, Hives, Itching [facility] (20 sources) Soybean Lecithin; Translations: [LECITHIN, SOY] Drug Allergy 2 GI Upset, Unknown [facility] (20 sources) Other Allergy to substance [address] [facility] (1 source) ALLERGIES NOT ON FILE; Translations: [ALLERGIES NOT ON FILE] Propensity to adverse reactions (disorder) [facility] Medications Current Medications Medication Drug Class(es) Dates Sig (Normalized) Sig (Original) acetaminophen 325 mg oral tablet (13 sources) Start: 01-11-2021 End: 08-08-2022 take 2 tablets by mouth every four hours as needed acetaminophen (TYLENOL) 325 mg tablet Take 2 tablets by mouth every 4 hours as needed. 40 tablet 0 01/11/2021 08/08/2022 Discontinued Comment on above: Take 2 tablets by mo [facility] every 4 hours as needed. amoxicillin 875 [...] jose ramon th two times a day. B Complex-C (b complex-vitamin c) tablet (20 sources) take 1 tablet by mouth in [...] mg/ml / clotrimazole 10 mg/ml topical cream (19 sources) Azole Antifungal, Corticosteroid Start: 02-23-2024 clotrimazole-betamethason [...] . cetirizine hydrochloride 10 mg oral tablet (20 sources) Histamine-1 Receptor Antagonist Start: 08-09-2023 take [...] Discontinued Start: 04-09-2019 take 1 capsule by [facility] once daily Cholecalciferol (Vitamin D3) (Vitamin D3) 1,000 unit Capsule Active 1000 UNIT PO Daily April 09, 2019 12:00am take 1 tablet by [facility] every week cholecalciferol (Vitamin D3) 1.25 MG (17888 UT) tablet Take 1.25 mg by mouth once a week Active Comment on above: Take 1 capsule by [facility] one time a week. diphenhydrAMINE hydrochloride 25 [...] every week ergocalciferol (Vitamin D-2) 1.25 MG (71758 UT) capsule Take 50,000 Units by mouth once a week. 07/31/2023 Active Start: 08-08-2022 take 1 capsule by mo ut every week ergocalciferol 50,000 unit capsule (VITAMIN D2, DRISDOL) Take 1 capsule by mouth one time a week. 12 capsule 3 08/08/2022 Active Comment on above: Take 1 capsule by [facility] one time a week. ferrous sulfate 325 [...] above: Take 1 tablet by [facility] once daily. Take by mouth every 24 hours. fluticasone propionate 0.05 mg/actuat metered dose nasal spray (20 sources) Corticosteroid Start: take 1 spray(s) nasal route once daily fluticasone (FLONASE) 50 mcg/actuation nasal spray Use 1 Transfer in each nostril once daily. 1 g 5 09/01/2020 Active Comment on above: Use 1 Transfer in each nostril once daily. 1 ml [...] jose ramon th daily at bedtime. methylPREDNISolone (20 sources) Corticosteroid Start: 08-24-2024 methylPREDNISolone (MEDROL DOSE-PACK) 4 mg Dose-Pack Day 1: 6 tablets Day 2: 5 tablets Day 3: 4 tablets Day 4: 3 tablets Day 5: 2 tablets Day 6: 1 tablet 08/24/2024 Active Start: 08-24-2024 methylPREDNISo lone (Medrol Dospak) 4 MG tablets Indications: MS (multiple sclerosis) (CMS/HCC) Day 1: 6 tablets Day 2: 5 tablets Day 3: 4 tablets Day 4: 3 tablets Day 5: 2 tablets Day 6: 1 tablet 21 tablet 08/24/2024 Active mometasone furoate 1 mg/ml topical cream (20 sources) Corticosteroid Start: 07-19-2024 mometasone (El tamara) 0.1 % cream Apply topically Daily 07/19/2024 Active Start: 07-19-2024 mometasone (EL TAMARA) 0.1 % cream Apply to affected area once daily. 30 g 07/19/2024 Active moxifloxacin 400 mg oral tablet [...] by jose ramon th every 24 hours. Aezcilibvnvn-Oonm-L olic Acid (1 source) Start: 04-09-2019 take 1 tablet by mouth once daily Multivitamin-Iron- Folic Acid Active 1 TAB Oral Daily April 09, 2019 12:28pm Gjqwsefxubgo-Rriy-M olic Acid (Multi-Day With Iron) 18-400 mg-mcg Tablet (5 sources) Start: 04-09-2019 take 1 tablet by mouth once daily Multivitamin-Iron- Folic Acid (Multi-Day With Iron) 18-400 mg-mcg Tablet Active 1 TAB PO Daily April 09, 2019 12:28pm Start: 04-09-2019 take 1 tablet by jose ramon th once daily Lbdikxuyvimj-Ebnf-Vfban Acid (Multi-Day With Iron) 18-400 mg-mcg Tablet Active 1 TAB PO Daily April 09, 2019 12:00am Start: 04-09-2019 take 1 tablet by jose ramon th once daily Hmuvlojiipcl-Hpnx-Qiemy Acid (Multi-Day With Iron) 18-400 mg-mcg Tablet [...] preference to brand and flavor 30 Each 06/09/2024 08/17/2024 Discontinued Start: 06-09-2024 OTC NUTRITIONA [...] 1 Drop (AK-DILATE, SABINA-SYNEPHRINE) polyethylene glycol 3350 45883 mg powder for oral solution (20 sources) Osmotic Laxative Start: 03-30-2024 End: 05-29-2024 polyethylene glycol 3350 (MIRALAX) 17 gram/dose powder Indications: Multiple sclerosis (HCC) , Constipation, unspecified constipation type Take 17 g by mouth once daily. Dissolve dose in 4 - 8 ounces of liquid and take as directed. 510 g 1 03/30/2024 05/29/2024 Active Start: 04-19-2021 End: 08-14-2022 polyethylene glycol 3350 (NC RALAX) 17 gram/dose powder Indications: Chronic idiopathic [...] ounces of liquid and take as directed. Vtqwcorz-Oym-Hv-FA (Jenliva / ) 1 MG capsule (19 sources) Liiycdke-Ore-Hy-FA (Jenliva /) 1 MG capsule Take by [...] Drop (MYDRIACYL) valACYclovir 500 mg oral tablet (8 sources) Herpesvirus Nucleoside Analog DNA Polymerase Inhibitor, Herpes [...] every four to six hours Hydrocodone-Acetami nophen (Trinity) 5-325 mg Tablet Discontinued 1 TAB PO [...] Take by mouth once d aily. Mag Wrlqn-T2-Kocjtxdq Rt Xt (6 sources) Vitamin D Start: 04-09-2019 End: 04-02-2022 Mag Jumvk-I0-Uesilvfy Rt Xt Discontinued TABLET April 09, 2019 12:28pm April 02, 2022 5:24pm Start: 04-09-2019 Mag Oxide-D3-T urmeric Rt Xt Active April 09, 2019 12:28pm Start: 04-09-2019 End: 04-02-2022 Mag Ppjpd-S6-Ayhrfdez Rt Xt Discontinued TABLET April 09, 2019 12:00am April 02, 2022 5:24pm Start: 04-09-2019 End: 04-02-2022 Mag Urlmb-R8-Zriaoxxr Rt Xt Discontinued TABLET April 08, 2019 [...] 2019 12:00am April 02, 2022 5:23pm levonorgestrel 0.703604 mg/hr intrauterine system (6 sources) Progestin, Progestin-containing [...] on above: Take 1 capsule by mo [facility] DAILY (6 AM). Magnesium (20 [...] above: Take 1 tablet by [facility] once daily as needed. metroNIDAZOLE 500 mg [...] Take 20 mEq by mouth as needed. Yphgexxw-Vv-Qhu-Fe-FA ( VITAMIN) tab (20 sources) Start: take 1 tablet by mouth once daily Vbmnyqya-Rf-Iga-Fe- FA ( VITAMIN) tab Indications: Encounter for supervision of normal first in second trimester Take 1 tablet by mouth once daily. 90 tablet 3 2020 Active Comment on above: Take 1 tablet by jose ramon once daily. Vit-Fe Fumarate-FA (M- Plus) 27-1 MG tablet (8 sources) Start: End: take 1 tablet by mouth once daily Vit-Fe Fumarate-FA (M- Plus) 27-1 MG tablet Indications: Third trimester Take 1 tablet by mouth Daily Please dispense what insurance approves. 30 tablet 11 08/25/2024 09/24/2024 Start: 08-25-2024 End: 09-24-2024 take 1 tablet by mouth once daily Vit-Fe Fumarate-FA (M- Plus) 27-1 MG tablet Indications: Third trimester [...] Problem Classification Problem Date Documented Date Episodic/Chronic Administrative/social admission (1 source) Dietary counseling and surveillance; Translations: [Dietary counseling and surveillance] Onset: 09-22-2024 Episodic Anxiety disorders (1 source) Anxiety; Translations: [Anxiety [...] eye, upper and lower eyelids] 08-30-2024 Episodic Menstrual disorders (20 sources) Irregular menstruation, unspecified; Translations: [Excessive and [...] (20 sources) Patient encounter status; Translations: [Other intermediate designer (current) drug therapy] Onset: 01-08-2021 Resolved: 01-11-2021 Episodic Other aftercare (2 sources) Surgical follow-up; Translations: [Encounter for follow-up examination after completed treatment for conditions other than malignant neoplasm] 12-11-2023 Episodic Other complications of (2 sources) care status; Translations: [Maternal care for other known or suspected poor growth, third trimester, not applicable or unspecified] Onset: 08-17-2024 08-17-2024 Episodic Other complications of (6 sources) Short cervical length in ; Translations: [Cervical shortening, third trimester] Onset: 06-16-2024 08-17-2024 Episodic Other complications of (2 sources) Diseases of the nervous system complicating , second trimester; Translations: [Diseases of the nervous system complicating , second trimester ([facility])] Onset: 06-16-2024 Episodic Other complications of (2 [...] the nervous system complicating , third trimester ([facility])] Onset: 08-17-2024 Episodic Other complications of (2 sources) Maternal care for other abnormalities of cervix, third trimester; Translations: [Maternal care for other abnormalities of cervix, third trimester ([facility])] Onset: 08-17-2024 Episodic Other complications of (2 sources) Cervical shortening, third trimester; Translations: [Cervical shortening, third trimester ([facility])] Onset: 08-17-2024 Episodic Other connective tissue [...] source) Snoring; Translations: [Snoring] 06-08-2024 Episodic Other nervous system disorders (1 source) Other chronic pain; Translations: [Chronic midline low back pain without sciatica] Onset: 03-04-2024 Chronic Other nervous system disorders (1 source) 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; Translations: [History of multiple sclerosis] Episodic [...] disorder; Translations: [History of hypoglycemia] Episodic Other and delivery including normal (20 sources) Normal ; Translations: [Encounter for supervision of normal first , third trimester] Onset: 01-02-2021 Resolved: 01-11-2021 01-11-2021 Episodic Other skin disorders (1 source) Xeroderma; [...] states] Onset: 08-17-2024 Episodic Residual codes; unclassified (2 sources) Gestation period, 34 weeks; Translations: [34 weeks gestation of ] 09-21-2024 Episodic Residual codes; unclassified (2 sources) Gestation period, 35 weeks; Translations: [35 weeks gestation of ] 09-27-2024 Episodic Residual codes; unclassified (2 sources) Gestation period, 36 weeks; Translations: [36 weeks gestation of ] 10-04-2024 Episodic Unclassified (19 sources) Sleep Efficiency Onset: [...] [Raised antibody titer] Onset: 01-08-2021 01-11-2021 Episodic Malaise and fatigue (3 sources) Malaise and fatigue; Translations: [Other malaise] Onset: 07-01-2024 06-08-2024 Episodic Other bone disease and musculoskeletal deformities (20 sources) Costal chondritis; Translations: [Chondrocostal junction syndrome [Tietze]] Onset: 04-17-2021 Resolved: 04-20-2021 04-20-2021 Episodic Other complications of ; puerperium affecting management of mother (2 sources) Maternal care for (suspected) abnormality and damage, unspecified, not applicable or unspecified; Translations: [Maternal care for (suspected) abnormality and damage, unspecified, not applicable or unspecified ([facility])] Onset: 06-14-2024 Episodic Other complications of [...] Translations: [Supervision of elderly multigravida, second trimester ([facility])] Onset: 06-14-2024 Episodic Other complications of (2 sources) Diseases of the nervous system complicating , unspecified trimester; Translations: [Diseases of the nervous system complicating , unspecified trimester ([facility])] Onset: 06-14-2024 Episodic Other complications of (2 sources) Cervical shortening, second trimester; Translations: [Cervical shortening, second trimester ([facility])] Onset: 06-14-2024 Episodic Other endocrine disorders (20 sources) Hypoglycemia; Translations: [Hypoglycemia, unspecified] Onset: 03-07-2021 Resolved: 07-17-2023 04-17-2021 Chronic Other female genital disorders (20 sources) Torsion of ovary; Translations: [Torsion of ovary and ovarian pedicle, unspecified side] Onset: 04-14-2018 04-17-2021 Episodic Other gastrointestinal disorders (20 sources) Constipation; Translations: [Constipation, unspecified] Onset: 10-06-2019 Resolved: 07-17-2023 04-17-2021 Episodic Other lower respiratory disease (1 source) Snoring; Translations: [Snoring] Onset: 07-01-2024 Episodic Other nervous system disorders (20 sources) Cognitive deficit in communication skills; Translations: [Cognitive communication deficit] Onset: 07-22-2022 Resolved: 07-17-2023 Chronic Other nervous system disorders (20 sources) Abnormal gait; Translations: [Unspecified abnormalities of gait and mobility] Onset: 10-06-2019 Resolved: 07-17-2023 04-17-2021 Episodic Ovarian cyst (20 sources) Complex [...] edema] Onset: 04-17-2021 Resolved: 04-20-2021 04-20-2021 Episodic Residual codes; unclassified (1 source) Other specified personal risk factors, not elsewhere classified; Translations: [At risk for obstructive sleep apnea] Onset: 07-01-2024 Episodic Spondylosis; intervertebral disc disorders; other back problems (5 sources) Neck pain; Translations: [Cervicalgia] Onset: 03-04-2024 03-04-2024 Episodic Syncope (20 sources) Syncope; Translations: [Syncope and collapse] Onset: 12-04-2018 Resolved: 07-17-2023 04-17-2021 Episodic Unclassified (20 sources) NO SHOW Onset: 01-22-2021 Resolved: 04-17-2021 04-17-2021 Viral infection (20 sources) Disease caused by 2019-nCoV; Translations: [COVID-19] Onset: 03-22-2024 10-28-2022 Episodic Results Test Name Value Interpretation Reference Range Facility Urinalysis macro (dipstick) panel (U)on 10-04-2024 Bilirubin, UA Negative Negative - 4(70) +++ mg/dL [facility] Healthcare Blood, UA Positive Negative - 50 Delbert/mcL [facility] Comment on above: trace-intact Clarity, UA Clear [facility] Color, UA Yellow [facility] Glucose, UA Negative Negative - 2000(110) ++++ mg/dL [facility] Interpretation and review of laboratory results Abnormal [facility] Ketones, UA Negative Negative - 160(16) ++++ mg/dL [facility] Leukocytes, UA Positive Negative - 500+++ Baltazar/mcL [facility] Comment on above: small Nitrite, UA Negative Negative - Positive [facility] pH, UA 6 5 - 9 [facility] Protein, UA Trace Negative - 1999(20) ++++ mg/dL [facility] Spec Grav, UA 1.03 1 - 1.03 [facility] Urobilinogen, UA 0.2 0.2 - 12 mg/dL [facility] Urinalysis macro (dipstick) panel (U)on 09-27-2024 Bilirubin, UA Negative Negative - 4(70) +++ mg/dL [facility] Blood, UA Negative Negative - 50 Delbert/mcL [facility] Clarity, UA Clear [facility] Color, UA Yellow [facility] Glucose, UA Negative Negative - 1999(110) ++++ mg/dL [facility] Interpretation and review of laboratory results Normal [facility] Ketones, UA Negative Negative - 160(16) ++++ mg/dL [facility] Leukocytes, UA Negative Negative - 500+++ Baltazar/mcL [facility] Nitrite, UA Negative Negative - Positive [facility] pH, UA 5.5 5 - 9 [facility] Protein, UA Negative Negative - 1999(20) ++++ mg/dL [facility] Spec Grav, UA 1.02 1 - 1.03 [facility] Urobilinogen, UA 1.0 0.2 - 12 mg/dL [facility] CNTHERAPYon 09-21-2024 CNTHERAPY OT/PT/Speech Visit (LOPTRM) ----- CAROL ANN MARTINEZ ([id number]) 1985 F Date Time Provider Department 09/21/24 9:45 AM ESTRELLA SORTO LOPTRM Date Time Provider Department Center 09/21/2024 9:45 AM [id number], LAUREN RENE Mack Reason for Visit: Physical Therapy [503] Primary [...] (FLONASE) 50 mcg/actuation nasal spray Use 1 Transfer in each nostril once daily. Painting Instructor: Therapy (PT/OT/Speech/Resp) ID: [id number] 09/21/2024 10:16 AM Author: ESTRELLA SORTO Signed by ESTRELLA SORTO PT, DPT on 09/21/2024 at 10:16 AM Document text: Program_ID:[id number] Access Code: [email or web address] URL: [email or web address] Date: 09-21-2024 Prepared By: Estrella Sorto Program [...] - 2 sets - 10 reps Normal [facility] THERAPY NTon 09-21-2024 THERAPY NT HNO ID: [id number] Author: ESTRELLA SORTO, PT, DPT Service: ? Author Type: Physical Therapist Type: Therapy (PT/OT/Speech/Resp) Filed: 09/21/2024 10:16 Note Text: Program_ID:[id number] Access Code: [email or web address] URL: [email or web address] Date: 09-21-2024 Prepared By: Estrella Sorto Program [...] - 2 sets - 10 reps Normal [facility] Urinalysis macro (dipstick) panel (U)on 09-21-2024 Bilirubin, UA Negative Negative - 4(70) +++ mg/dL [facility] Blood, UA Negative Negative - 50 Delbert/mcL [facility] Clarity, UA Clear [facility] Color, UA Yellow [facility] Glucose, UA Negative Negative - 1999(110) ++++ mg/dL [facility] Interpretation and review of laboratory results Abnormal [facility] Ketones, UA Negative Negative - 160(16) ++++ mg/dL [facility] Leukocytes, UA Trace Negative - 500+++ Baltazar/mcL [facility] Nitrite, UA Negative Negative - Positive [facility] pH, UA 7 5 - 9 [facility] Protein, UA Negative Negative - 1999(20) ++++ mg/dL [facility] Spec Grav, UA 1.02 1 - 1.03 [facility] Urobilinogen, UA 0.2 0.2 - 12 mg/dL [facility] US OB FOLLOW UP TRANSABDOMIN AL APPROACHon 09-14-2024 US OB FOLLOW UP TRANSABDOMINAL APPROACH Interpreted by: [...] EFW (oz) 0 oz EFW by: Hadlock ([id number]-IE-FL) Extended Quality Control Lead 1.6 mm Head / Face / Neck [...] Suboptimal view: limited by late gestational age Normal [facility] Urinalysis macro (dipstick) panel (U)on 09-07-2024 Bilirubin, UA Negative Negative - 4(70) +++ mg/dL [facility] Blood, UA Negative Negative - 50 Delbert/mcL [facility] Clarity, UA Clear [facility] Color, UA Yellow [facility] Glucose, UA Negative Negative - 1999(110) ++++ mg/dL [facility] Interpretation and review of laboratory results Abnormal [facility] Ketones, UA Negative Negative - 160(16) ++++ mg/dL [facility] Leukocytes, UA Trace Negative - 500+++ Baltazar/mcL [facility] Nitrite, UA Negative Negative - Positive [facility] [facility] pH, UA 7 5 - 9 [facility] Protein, UA Negative Negative - 1999(20) ++++ mg/dL [facility] Spec Grav, UA 1.02 1 - 1.03 [facility] Urobilinogen, UA 0.2 0.2 - 12 mg/dL [facility] [id number] 09-03-2024 [id number] HNO ID: [id number] Author: ESTRELLA SORTO PT, DPT Service: ? Author Type: Physical Therapist Type: [id number] Filed: 09/03/2024 11:25 Note Text: [facility] Therapy Physical Therapy Plan of Care Certification Patient Name: Carol Ann Martinez : 1985 [facility] #: [id number] Date: 09/03/2024 To: Janice Lane MD From Therapist: Estrella Sorto PT, DPT RE: Patient Certification/ Recertification Your review, approval and electronic signature are required in order to comply with Payor: [employer] MEDICARE / Plan: [employer] / Product Type: HMO / regulations. [...] Goals for Episode of Care: established 09/03/24 [place] in home exercise program. Patient will decrease [...] Planned: 4 Planned Treatment Interventions: Therapeutic exercise (60846), Neuromuscular re-education (83434), Manual therapy (21621), Therapeutic activities (50410), Self-chcf management (49280), Gait Training (69542), Patient/Family/Caregiver Education PLAN FOR NEXT VISIT: Continue with hip strength as tolerated, introduce PPT. Patient demonstrates good understanding of plan of care and treatment. The above goals and plan of care were discussed and agreed upon by patient/family. For further details regarding this patient refer to the Physical Therapy electronically documented visit dated 09/03/2024. Provider Attestation I have reviewed the treatment plan for Carol Ann Martinez, [facility]# [id number] for the period of 09/03/24 -- 11/02/24, established on 09/03/2024. Signature certifies the need for therapy services. Normal [facility] CNTHERAPYon 09-03-2024 CNTHERAPY OT/PT/Speech Visit (KEPTRM) ----- MARTINEZCAROL ANN Beto ([id number]) 1985 F Date Time Provider Department 09/03/24 8:45 AM ESTRELLA SORTO Date Time Provider Department Center 09/03/2024 8:45 AM [id number] SORTO Reason for Visit: PT Eval [747] [...] (FLONASE) 50 mcg/actuation nasal spray Use 1 Transfer in each nostril once daily. Painting Instructor: Therapy (PT/OT/Speech/Resp) ID: [id number] 09/03/2024 9:22 AM Author: ESTRELLA SORTO Signed by ESTRELLA SORTO PT, DPT on 09/03/2024 at 9:22 AM Document text: Program_ID:[id number] Access Code: [email or web address] URL: [email or web address] Date: 09-03-2024 Prepared By: Estrella Sorto Program Notes Exercises - Seated Hip Adduction Isometrics with Ball - 1-3 x daily - 7 x weekly - 2-3 sets - 10 reps - Seated Hip Abduction with Resistance - 1-3 x daily - 7 x weekly - 2-3 sets - 10 reps Normal [facility] THERAPY NTon 09-03-2024 THERAPY NT HNO ID: [id number] Author: ESTRELLA SORTO, PT, DPT Service: ? Author Type: Physical Therapist Type: Therapy (PT/OT/Speech/Resp) Filed: 09/03/2024 09:22 Note Text: Program_ID:[id number] Access Code: [email or web address] URL: [email or web address] Date: 09-03-2024 Prepared By: Estrella Sorto Program Notes Exercises - Seated Hip Adduction Isometrics with Ball - 1-3 x daily - 7 x weekly - 2-3 sets - 10 reps - Seated Hip Abduction with Resistance - 1-3 x daily - 7 x weekly - 2-3 sets - 10 reps Normal [facility] Urinalysis macro (dipstick) panel (U)on 08-24-2024 Bilirubin, UA Negative Negative - 4(70) +++ mg/dL [facility] Blood, UA Negative Negative - 50 Delbert/mcL [facility] Clarity, UA Clear [facility] Color, UA Yellow [facility] Glucose, UA Negative Negative - 1999(110) ++++ mg/dL [facility] Interpretation and review of laboratory results Normal [facility] Ketones, UA Negative Negative - 160(16) ++++ mg/dL [facility] Leukocytes, UA Negative Negative - 500+++ Baltazar/mcL [facility] Nitrite, UA Negative Negative - Positive [facility] pH, UA 6.5 5 - 9 [facility] Protein, UA Negative Negative - 1999(20) ++++ mg/dL [facility] Spec Grav, UA 1.025 1 - 1.03 [facility] Urobilinogen, UA 0.2 0.2 - 12 mg/dL [facility] No Panel Informationon 08-17 Interpreted by: Marina [...] care of your patient Follow-up ======== Per [facility] visit to follow, plan for serial [...] EFW (oz) 4 oz EFW by: Hadlock (ZOM-KH-BM-FL) Extended Quality Control Lead 3.4 mm Head / Face / Neck [...] Disorder, Cervical Shortening. History ====== General History Cpvvtj292 cm Height (ft)5 ft Height (in)6 in Previous Outcomes Gravida2 Para1 Children born living ?37w1 Pregnancies delivered at term (T)1 Living children (L)1 Other:Vaginal Delivery Maternal Assessment Yhouuc576 cm Height (ft)5 ft Height (in)6 in Fyjqjn59 kg Weight (lb)131 lb Weight gain0 kg Weight gain (lb)0 lb BMI21.14 kg/m Physical Exam Initial weight (lb)131 lb ========= Tony . Number of fetuses: 1 Dating ====== GA by prior lzfrhrxucn89 w + 6 d ELLIOTT by prior [...] care of your patient Follow-up ======== Per [facility] visit to follow, plan for serial [...] (lb)3 lb EFW (oz)4 oz EFW by:Hadlock (HQS-OG-QE-FL) Extended Vp3.4 mm Head / Face / Neck Cephalic index0.77 24% Nicolaides Extremities / Bony Struc FL / BPD0.75 FL / HC0.20 FL / AC0.22 Other Structures LIA449 bpm Anatomy Cranium:Normal Lateral ventricles:Normal Midline falx:Normal [...] Disorder, Cervical Shortening. History ====== General History Zkveza086 cm Height (ft)5 ft Height (in)6 in Previous Outcomes Gravida2 Para1 Children born living ?37w1 Pregnancies delivered at term (T)1 Living children (L)1 Other:Vaginal Delivery Maternal Assessment Epewrn013 cm Height (ft)5 ft Height (in)6 in Bbxlet79 kg Weight (lb)131 lb Weight gain0 kg Weight gain (lb)0 lb BMI21.14 kg/m Physical Exam Initial weight (lb)131 lb ========= Tony . Number of fetuses: 1 Dating ====== GA by prior jvxadeaith14 w + 6 d ELLIOTT by prior [...] participate in the (more content not included)... [facility] Work Phone: [phone] Radiology Study observation (narrative) [facility] Work Phone: [phone] No Panel InformationOrdered By: Marina Ordoñez on 08-17-2024 [facility] Work Phone: POCT UA Automated manually r esultedon 08-17-2024 Appearance (U) Clear Clear [facility] Work Phone: [phone] Glucose Test strip (U) [Mass/Vol] Negative NEGATIVE mg/dl [facility] Work Phone: [phone] Hemoglobin Ql (U) Negative NEGATIVE [facility] Work Phone: [phone] Interpretation and review of laboratory results Normal [facility] Work Phone: [phone] Leukocyte esterase Test strip Ql (U) Negative NEGATIVE [facility] Work Phone: [phone] Nitrite Ql (U) Negative NEGATIVE [facility] Work Phone: [phone] pH (U) 7.0 [pH] No Reference Range Established [facility] Work Phone: [phone] POC Bilirubin, Urine Negative NEGATIVE [facility] Work Phone: [phone] POC Color, Urine Yellow Straw, Yellow, Light-Yellow [facility] Work Phone: [phone] POC Ketones, Urine Negative NEGATIVE mg/dl [facility] Work Phone: [phone] POC Protein, Urine Negative NEGATIVE, 30 (1+) mg/dl [facility] Work Phone: [phone] POC Specific [place], Urine 1.025 1.005 - 1.035 [facility] Work Phone: [phone] POC Urobilinogen, Urine 0.2 0.2, 1.0 EU/DL [facility] Work Phone: [facility] Work Phone: US BIOPHYSICAL PROFILE WO [...] care of your patient Follow-up ======== Per [facility] visit to follow, plan for serial [...] EFW (oz) 4 oz EFW by: Hadlock (PUB-NQ-RZ-FL) Extended Quality Control Lead 3.4 mm Head / Face / Neck [...] on a limited survey -BPP Score is 06/17 Thank you allowing us to participate in the care of yo (more content not included)... [facility] OB FOLLOW UP TRANSABDOMIN AL APPROACHon 08-17-2024 [...] care of your patient Follow-up ======== Per [facility] visit to follow, plan for serial [...] EFW (oz) 4 oz EFW by: Hadlock (FBV-CY-LB-FL) Extended Quality Control Lead 3.4 mm Head / Face / Neck [...] on a limited survey -BPP Score is 06/17 Thank you allowing us to participate in the care of yo (more content not included)... Normal [facility] Urinalysis macro (dipstick) panel (U)on 08-10-2024 Bilirubin, UA Negative Negative - 4(70) +++ mg/dL [facility] Blood, UA Negative Negative - 50 Delbert/mcL [facility] Clarity, UA Clear [facility] Color, UA Yellow [facility] Glucose, UA Negative Negative - 2000(110) ++++ mg/dL [facility] Interpretation and review of laboratory results Normal [facility] Ketones, UA Negative Negative - 160(16) ++++ mg/dL [facility] Leukocytes, UA Negative Negative - 500+++ Baltazar/mcL [facility] Nitrite, UA Negative Negative - Positive [facility] pH, UA 5.5 5 - 9 [facility] Protein, UA Negative Negative - 2000(20) ++++ mg/dL [facility] Spec Grav, UA 1.015 1 - 1.03 [facility] Urobilinogen, UA 1.0 0.2 - 12 mg/dL [facility] CBC W Auto Differential pane l (Bld)on 07-19-2024 Basophils (Bld) [#/Vol] 0.05 10*3/uL Normal <0.11 [facility] Comment on above: Order Comment: Speci men Type: BLOOD SPECIMENOrdering Facility: [facility] Address: [address] [place] [address] Performed By: #### 5 7021-8 ####[facility] LABCLIA [id number] [place] [address] [place] Basophils/100 WBC (Bld) 0.6 % Normal [facility] Comment on above: Order Comment: Speci men Type: BLOOD SPECIMENOrdering Facility: [facility] Address: [address] [place] [address] Performed By: #### 5 7021-8 ####[facility] LABCLIA [id number] [place] [address] [place] Differential cell count method Nom (Bld) Auto Normal [facility] Comment on above: Order Comment: Speci men Type: BLOOD SPECIMENOrdering Facility: [facility] Address: [address] [place] [address] Performed By: #### 5 7021-8 ####[facility] LABCLIA [id number] [place] [address] [place] Eosinophils (Bld) [#/Vol] 0.10 10*3/uL Normal <0.46 [facility] Comment on above: Order Comment: Speci men Type: BLOOD SPECIMENOrdering Facility: [facility] Address: [address] [place] [address] Performed By: #### 5 7021-8 ####[facility] LABCLIA [id number] [place] [address] [place] Eosinophils/100 WBC (Bld) 1.2 % Normal [facility] Comment on above: Order Comment: Speci men Type: BLOOD SPECIMENOrdering Facility: [facility] Address: [address] [place] [address] Performed By: #### 5 7021-8 ####[facility] LABCLIA [id number] [place] [address] [place] Erythrocyte distribution width (RBC) [Ratio] 14.7 % Normal 11.5-15.0 [facility] Comment on above: Order Comment: Speci men Type: BLOOD SPECIMENOrdering Facility: [facility] Address: [address] [place] [address] Performed By: #### 5 7021-8 ####[facility] LABCLIA [id number] [place] [address] [place] Hematocrit (Bld) [Volume fraction] 39.3 % Normal 36.0-46.0 [facility] Comment on above: Order Comment: Speci men Type: BLOOD SPECIMENOrdering Facility: [facility] Address: [address] [place] [address] Performed By: #### 5 7021-8 ####[facility] LABCLIA [id number] [place] [address] [place] Hemoglobin (Bld) [Mass/Vol] 12.4 g/dL Normal 11.5-15.5 [facility] Comment on above: Order Comment: Speci men Type: BLOOD SPECIMENOrdering Facility: [facility] Address: [address] [place] [address] Performed By: #### 5 7021-8 ####[facility] LABCLIA [id number] [place] [address] [place] Immature granulocytes (Bld) [#/Vol] 0.04 10*3/uL Normal <0.10 [facility] Comment on above: Order Comment: Speci men Type: BLOOD SPECIMENOrdering Facility: [facility] Address: [address] [place] [address] Performed By: #### 5 7021-8 ####[facility] LABIA [id number] [place] [address] [place] Immature granulocytes/100 WBC (Bld) 0.5 % Normal [facility] Comment on above: Order Comment: Speci men Type: BLOOD SPECIMENOrdering Facility: [facility] Address: [address] [place] [address] Performed By: #### 5 7021-8 ####[facility] LABIA [id number] [place] [address] [place] Lymphocytes (Bld) [#/Vol] 1.58 10*3/uL Normal 1.00-4.00 [facility] Comment on above: Order Comment: Speci men Type: BLOOD SPECIMENOrdering Facility: [facility] Address: [address] [place] [address] Performed By: #### 5 7021-8 ####[facility] LABIA [id number] [place] [address] [place] Lymphocytes/100 WBC (Bld) 19.1 % Normal [facility] Comment on above: Order Comment: Speci men Type: BLOOD SPECIMENOrdering Facility: [facility] Address: [address] [place] [address] Performed By: #### 5 7021-8 ####[facility] LABIA [id number] [place] [address] [place] MCH (RBC) [Entitic mass] 27.1 pg Normal 26.0-34.0 [facility] Comment on above: Order Comment: Speci men Type: BLOOD SPECIMENOrdering Facility: [facility] Address: [address] [place] [address] Performed By: #### 5 7021-8 ####[facility] LABIA [id number] [place] [address] [place] MCHC (RBC) [Mass/Vol] 31.6 g/dL Normal 30.5-36.0 [facility] Comment on above: Order Comment: Speci men Type: BLOOD SPECIMENOrdering Facility: [facility] Address: [address] [place] [address] Performed By: #### 5 7021-8 ####[facility] LABIA [id number] [place] [address] [place] MCV (RBC) [Entitic vol] 86.0 fL Normal 80.0-100.0 [facility] Comment on above: Order Comment: Speci men Type: BLOOD SPECIMENOrdering Facility: [facility] Address: [address] [place] [address] Performed By: #### 5 7021-8 ####[facility] LABIA [id number] [place] [address] [place] Monocytes (Bld) [#/Vol] 0.58 10*3/uL Normal <0.87 [facility] Comment on above: Order Comment: Speci men Type: BLOOD SPECIMENOrdering Facility: [facility] Address: [address] [place] [address] Performed By: #### 5 7021-8 ####[facility] LABCLIA [id number] [place] [address] [place] Monocytes/100 WBC (Bld) 7.0 % Normal [facility] Comment on above: Order Comment: Speci men Type: BLOOD SPECIMENOrdering Facility: [facility] Address: [address] [place] [address] Performed By: #### 5 7021-8 ####[facility] LABCLIA [id number] [place] [address] [place] Neutrophils (Bld) [#/Vol] 5.91 10*3/uL Normal 1.45-7.50 [facility] Comment on above: Order Comment: Speci men Type: BLOOD SPECIMENOrdering Facility: [facility] Address: [address] [place] [address] Performed By: #### 5 7021-8 ####[facility] LABCLIA [id number] [place] [address] [place] Neutrophils/100 WBC (Bld) 71.6 % Normal [facility] Comment on above: Order Comment: Speci men Type: BLOOD SPECIMENOrdering Facility: [facility] Address: [address] [place] [address] Performed By: #### 5 7021-8 ####[facility] LABCLIA [id number] [place] [address] [place] Nucleated RBC (Bld) [#/Vol] 10*3/uL Normal <0.01 [facility] Comment on above: Order Comment: Speci men Type: BLOOD SPECIMENOrdering Facility: [facility] Address: [address] [place] [address] Performed By: #### 5 7021-8 ####[facility] LABCLIA [id number] [place] [address] [place] Nucleated RBC/100 WBC (Bld) [Ratio] 0.0 /100 WBC Normal [facility] Comment on above: Order Comment: Speci men Type: BLOOD SPECIMENOrdering Facility: [facility] Address: [address] [place] [address] Performed By: #### 5 7021-8 ####[facility] LABCLIA [id number] [place] [address] [place] Platelet mean volume (Bld) [Entitic vol] 13.2 fL High 9.0-12.7 [facility] Comment on above: Order Comment: Speci men Type: BLOOD SPECIMENOrdering Facility: [facility] Address: [address] [place] [address] Performed By: #### 5 7021-8 ####[facility] LABIA [id number] [place] [address] [place] Platelets (Bld) [#/Vol] 187 10*3/uL Normal 150-400 [facility] Comment on above: Order Comment: Speci men Type: BLOOD SPECIMENOrdering Facility: [facility] Address: [address] [place] [address] Performed By: #### 5 7021-8 ####[facility] LABIA [id number] [place] [address] [place] RBC (Bld) [#/Vol] 4.57 10*6/uL Normal 3.90-5.20 [facility] Comment on above: Order Comment: Speci men Type: BLOOD SPECIMENOrdering Facility: [facility] Address: [address] [place] [address] Performed By: #### 5 7021-8 ####[facility] LABCLIA [id number] [place] [address] [place] WBC (Bld) [#/Vol] 8.26 10*3/uL Normal 3.70-11.00 [facility] Comment on above: Order Comment: Speci men Type: BLOOD SPECIMENOrdering Facility: [facility] Address: [address], [place] [address] Performed By: #### 5 7021-8 ####[facility] LABCLOZZY [id number] [place]A [id number] [id number] [place] CNOVon 07-19-2024 CNOV Office Visit ([facility] ) ----- CAROL ANN MARTINEZ ([id number]) 1985 F Date Time Provider Department 07/19/24 12:[address] [facility] During your visit today, [...] the hip. She is not taken anything utys-mlt-ieccjga for it. Patient has multiple sclerosis. Her [...] few seconds when she was on a vaqrr-ag-apjzt with her daughter. She told her WAREHOUSER about the symptoms she has started to [...] GENERAL APPEAR (more content not included)... Normal [facility] Comprehensive metabolic 2000 panelon 07-19-2024 Albumin [Mass/Vol] 3.7 g/dL Low 3.9-4.9 [facility] Comment on above: Order Comment: Speci men Type: BLOOD SPECIMENOrdering Facility: [facility] Address: [address] [place] [address] Performed By: #### 2 276-4, 45303-7 ####[facility] LABCLIA [id number] [place] [address] [place] ALP [Catalytic activity/Vol] 62 U/L Normal 34-123 [facility] Comment on above: Order Comment: Speci men Type: BLOOD SPECIMENOrdering Facility: [facility] Address: [address] [place] [address] Performed By: #### 2 276-4, 82460-3 ####[facility] LABCLIA [id number] [place] [address] [place] ALT [Catalytic activity/Vol] 15 U/L Normal 7-38 [facility] Comment on above: Order Comment: Speci men Type: BLOOD SPECIMENOrdering Facility: [facility] Address: [address] [place] [address] Performed By: #### 2 276-4, 71052-9 ####[facility] LABCLIA [id number] [place] [address] [place] Anion gap [Moles/Vol] 10 mmol/L Normal 8-15 [facility] Comment on above: Order Comment: Speci men Type: BLOOD SPECIMENOrdering Facility: [facility] Address: [address] [place] [address] Performed By: #### 2 276-4, 75124-8 ####[facility] LABCLIA [id number] [place] [address] [place] AST [Catalytic activity/Vol] 18 U/L Normal 13-35 [facility] Comment on above: Order Comment: Speci men Type: BLOOD SPECIMENOrdering Facility: [facility] Address: [address] [place] [address] Performed By: #### 2 276-4, 95819-5 ####[facility] LABCLIA [id number] [place] [address] [place] Bilirubin [Mass/Vol] 0.4 mg/dL Normal 0.2-1.3 [facility] Comment on above: Order Comment: Speci men Type: BLOOD SPECIMENOrdering Facility: [facility] Address: [address] [place] [address] Performed By: #### 2 276-4, 72658-8 ####[facility] LABCLIA [id number] [place] [address] [place] Calcium [Mass/Vol] 9.4 mg/dL Normal 8.5-10.2 [facility] Comment on above: Order Comment: Speci men Type: BLOOD SPECIMENOrdering Facility: [facility] Address: [address] [place] [address] Performed By: #### 2 276-4, 19451-5 ####[facility] LABCLIA [id number] [address] [address] [place] Chloride [Moles/Vol] 104 mmol/L Normal 98-107 [facility] Comment on above: Order Comment: Speci men Type: BLOOD SPECIMENOrdering Facility: [facility] Address: [address] [place] [address] Performed By: #### 2 276-4, 41584-2 ####[facility] LABCLIA [id number] [place] [address] [place] CO2 [Moles/Vol] 22 mmol/L Normal 22-30 [facility] Comment on above: Order Comment: Speci men Type: BLOOD SPECIMENOrdering Facility: [facility] Address: [address] [place] [address] Performed By: #### 2 276-4, 97523-4 ####[facility] LABCLIA [id number] [place] [address] [place] Creatinine [Mass/Vol] 0.62 mg/dL Normal 0.58-0.96 [facility] Comment on above: Order Comment: Speci men Type: BLOOD SPECIMENOrdering Facility: [facility] Address: [address] [place] [address] Performed By: #### 2 276-4, 19463-3 ####[facility] LABCLIA [id number] [place] [address] [place] Creatinine and Glomerular filtration rate.predicted panel (S/P/Bld) 117 mL/min/1.73m??? Normal >=60 [facility] Comment on above: Order Comment: Speci men Type: BLOOD SPECIMENOrdering Facility: [facility] Address: [address] [place] [address] Result Comment: Priscila mated Glomerular Filtration Rate [...] actual GFR. Performed By: #### 2 276-4, 47397-1 ####[facility] [id number] [place] [address] [place] Glucose [Mass/Vol] 58 mg/dL Low 74-99 [facility] Comment on above: Order Comment: Rylee chauhan Type: BLOOD SPECIMENOrdering Facility: [facility] Address: [address] [place] [address] Result Comment: The [place] Diabetes Association (ADA) provides guidance for cutoff [...] Standards of Medical Care in Diabetes 2016, [place] [employer] Association. Diabetes Care. 2016.39(Suppl 1). Performed By: #### 2 276-4, 48481-3 ####[facility] [id number] [place] [id number] [place] Potassium [Moles/Vol] 3.9 mmol/L Normal 3.7-5.1 [facility] Comment on above: Order Comment: Rylee chauhan Type: BLOOD SPECIMENOrdering Facility: [facility] Address: [address] [place] [address] Performed By: #### 2 276-4, 42682-8 ####[facility] LABCLIA [id number] [address] [address] [place] Protein [Mass/Vol] 7.1 g/dL Normal 6.3-8.0 [facility] Comment on above: Order Comment: Speci men Type: BLOOD SPECIMENOrdering Facility: [facility] Address: [address] [place] [address] Performed By: #### 2 276-4, 86605-1 ####[facility] LABCLIA [id number] [place] [id number] [place] Sodium [Moles/Vol] 136 mmol/L Normal 136-144 [facility] Comment on above: Order Comment: Speci men Type: BLOOD SPECIMENOrdering Facility: [facility] Address: [address] [place] [address] Performed By: #### 2 276-4, 42701-1 ####[facility] LABIA [id number] [place] [address] [place] Urea nitrogen [Mass/Vol] 8 mg/dL Normal 7-21 [facility] Comment on above: Order Comment: Speci men Type: BLOOD SPECIMENOrdering Facility: [facility] Address: [address] [place] [address] Performed By: #### 2 276-4, 04235-6 ####[facility] LABIA [id number] [place] [address] [place] Ferritin SerPl-mCncon 2023 Ferritin [Mass/Vol] 36.5 ng/mL Normal 14.7-205.1 [facility] Comment on above: Order Comment: Speci men Type: BLOOD SPECIMENOrdering Facility: [facility] Address: [address] [place] [address] Performed By: #### 2 276-4, 30378-7 ####[facility] LABIA [id number] [place] [address] [place] POLYSOMNOGRAM (PSG)/HOME SLE EP APNEA TEST (HSAT)on 07-03-2024 POLYSOMNOGRAM (PSG)/HOME SLEEP APNEA TEST (HSAT) [facility] at [address], [address], [place] [address] ; Home Sleep Apnea Test (HSAT) Study Report Name: CAROL ANN MARTINEZ Date of Study: 07/03/2024 [facility]#: [id number] Age: 38 (: 1985) ESS: 0 Neck [...] unattended Type III, minimum of 4 parameters (78490) Procedure: This study was performed using a Type III ambulatory PSG device and was unattended. The patient was instructed on proper use of the device by a registered molecular technologist. The monitored parameters included heart rate, [...] highly suspected. INTERPRETING PHYSICIAN: MG Marisol DO, CBSM ABS I attest that I have performed epoch by epoch review of the entire raw data and find this study to be technically adequate. Report Digitally Signed By: Sam Damon (07/08/2024 4:02:15 PM) Normal [facility] OB LIMITED 1+ FETUSESon 0 07-02-2024 US OB LIMITED 1+ FETUSES Interpreted by: Radha [...] Cervix Uterus: Visualiz (more content not included)... [facility] OB TRANSVAGINALon 024 OB TRANSVAGINAL [...] Uterus: Visualiz (more content not included)... Normal [facility] CNCOon 06-21-2024 CNCO Letter Text Normal [facility] US OB DETAIL ANATOMYon 06-14-2024 OB DETAIL ANATOMY [...] EFW (oz) 14 oz EFW by: Hadlock ([id number]-MA-VT-FL) Extended Quality Control Lead 5.9 mm CM 3.2 mm 4% Nicolaides [...] Normal LVOT view: Normal 3-vessel view: Normal 9-gtaogh-zoowcnc view: Normal Heart / Thorax Situs: situs [...] Lt neha (more content not included)... Normal [facility] OB TRANSVAGINALon 024 US OB TRANSVAGINAL Interpreted by: Janice Keith Indication [...] EFW (oz) 14 oz EFW by: Hadlock (KEN-KG-RS-FL) Extended Quality Control Lead 5.9 mm CM 3.2 mm 4% Nicolaides [...] Normal LVOT view: Normal 3-vessel view: Normal 5-headrh-kxhnuyk view: Normal Heart / Thorax Situs: situs [...] Normal Lt neha (more content not included)... [facility]20[facility] ----- CAROL ANN MARTINEZ ([id number]) 1985 F Date Time Provider Department 06/11/24 CHAMP BAXTER During your visit today, we recorded the following information about you: Champ Baxter LSW 06/11/2024 9:25 AM Signed This DEZ put in a referral to the [facility] for pt to get connected to additional resources. 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 Problem List [...] Encounter Status:Closed by CHAMP BAXTER on 06/11/24 [facility] CNPLilli 03-24-2024 CNPN Telephone (NCCAP) ----- CAROL ANN MARTINEZ ([id number]) 1985 F Date Time Provider Department 03/24/24 TOR HERNANDEZ NCCAP During your visit today, we recorded the [...] Date Reviewed: 01/19/2024 Reviewed by: Kaitlyn Forbes, hydraulic rockbreaker operator - Fully Assessed Reason for Visit: Appointment [...] (FLONASE) 50 mcg/actuation nasal spray Use 1 Transfer in each nostril once daily. Problem List [...] Status:Closed by VIVIANA SANDS on 03/24/24 Normal [facility] HCG,Quantitativeon 4 HCG,Quantitative 464096.00 m[iU]/mL Normal [facility] Comment on above: Result Comment: Appr oximate Approximate hCG Gestational Age Range (mIU/ml) (weeks) 0.2-1 5-50 1-2 50-500 2-3 100-5,000 3-4 500-10,000 4-5 1,000-50,000 5-6 10,000-100,000 6-8 15,000-200,000 8-12 10,000-100,000 PERFORMED BY: [place] [address] PATHOLOGIST RETAIL SERVICES PROFESSIONAL ALEN PRICE M.D. Performed By: #### H CGQNT #### [address] US breast BI limitedon 03-17 US breast BI limited [facility] [place] [address] [place] [address] Mammography Report Signed Patient: Carol Ann Martinez MR#: [id number] : 1985 Acct:[id number] Age/Sex: 38 / F ADM Date: 03/17/24 Loc: [place] Room: Type: [facility] Attending Dr: Clarke Hu Copies to: Clarke Lane MD Ordering Provider: Clarke Hu Date of Service: 03/17/24 MM/MM diagnostic mammo BI w/CAD: RT BREAST LUMP ([id number]) US/US breast BI limited: BILATERAL BREAST LUMPS [...] Renetta Chin M.D.03/17/2024 9:57 AM Dictation Location: [facility] Transcribed By: MEGHANN 03/17/24 0957 Dictated By: Renetta Chin II, MD 03/17/24 0923 Signed By: 03/17/24 0957 Normal [facility] XR Cervical spine AP and Lat eral and obliqueon 03-08-2024 IMPRESSION: No acute osseous abnormality. Preserved cervical disc spaces and neural foramina. 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: ANGEL Transcribe Date/Time: Mar 08 2024 4:48P Dictated by : VIKTORIYA WALTER MD This examination was interpreted and the report reviewed and electronically signed by: VIKTORIYA WALTER MD on Mar 08 2024 4:50PM [facility] DIVISION OF RADIOLOGY * * *Final [...] to the patient. DIVISION OF RADIOLOGY Provider, Ofelia diego [place] - 03/08/2024 * * *Final Report* * [...] Preserved cervical disc spaces and neural foramina. 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: ANGEL Transcribe Date/Time: Mar 08 2024 4:48P Dictated by : VIKTORIYA WALTER MD This examination was interpreted and the report reviewed and electronically signed by: VIKTORIYA WALTER MD on Mar 08 2024 4:50PM EST [facility] XR Lumbar spine 3 Viewson IMPRESSION: Unremarkable radiographic appearance of the lumbar spine. 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: [facility] Transcribe Date/Time: Mar 08 2024 4:47P Dictated by : VIKTORIYA WALTER MD This examination was interpreted and the report reviewed and electronically signed by: VIKTORIYA WALTER MD on Mar 08 2024 4:48PM [facility] DIVISION OF RADIOLOGY * * *Final [...] Preserved disc spaces. DIVISION OF RADIOLOGY Provider, [facility] Pastora Mechelle - 03/08/2024 * * *Final Report* * [...] Unremarkable radiographic appearance of the lumbar spine. 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: [facility] Transcribe Date/Time: Mar 08 2024 4:47P Dictated by : VIKTORIYA WALTER MD This examination was interpreted and the report reviewed and electronically signed by: VIKTORIYA WALTER MD on Mar 08 2024 4:48PM EST [facility] XR Lumbar spine 3 ViewsOrder ed By: Ccf Provider on 03-08-2024 [facility] ESR Westergren method (Bld) [Velocity]on 03-05-2024 ESR (Bld) [Velocity] 5 mm/h [facility] Interpretation and review of laboratory results Normal [facility] JOSSELIN BY IFA WITH REFLEXon Nuclear Ab Ql (S) Negative Normal Negative [facility] Comment on above: Order Comment: Speci men Type: BLOOD SPECIMENOrdering Facility: [facility] Address: [address] [place] [address] Result Comment: Anti -nuclear antibody test is used as an aid in diagnosis of systemic autoimmune diseases. Where positive and clinically warranted, follow-up using disease-specific testing is recommended. Low positive titers are not uncommon with advanced age, certain chronic infections, and malignancies among others. Test methodology: Indirect fluorescence immunoassay (IFA) using HEp-2 cells. Performed By: #### A NAIFR ####[facility] LABCLIA [id number] [place] [address] [place] CBC W Auto Differential pane l (Bld)on 03-04-2024 Basophils (Bld) [#/Vol] 0.04 10*3/uL [facility] Basophils/100 WBC (Bld) 0.5 % [facility] Differential cell count method Nom (Bld) Auto [facility] Eosinophils (Bld) [#/Vol] [facility] Eosinophils/100 WBC (Bld) 0.3 % [facility] Erythrocyte distribution width (RBC) [Ratio] 15.2 % High 11.5 - 15.0 % [facility] Hematocrit (Bld) [Volume fraction] 40.1 % 36.0 - 46.0 % [facility] Hemoglobin (Bld) [Mass/Vol] 12.4 g/dL 11.5 - 15.5 g/dL [facility] Immature granulocytes (Bld) [#/Vol] [facility] Immature granulocytes/100 WBC (Bld) 0.3 % [facility] Interpretation and review of laboratory results Abnormal [facility] Lymphocytes (Bld) [#/Vol] 1.62 10*3/uL [facility] Lymphocytes/100 WBC (Bld) 21.7 % [facility] MCH (RBC) [Entitic mass] 24.1 pg Low 26.0 - 34.0 pg [facility] MCHC (RBC) [Mass/Vol] 30.9 g/dL 30.5 - 36.0 g/dL [facility] MCV (RBC) [Entitic vol] 77.9 fL Low 80.0 - 100.0 fL [facility] Monocytes (Bld) [#/Vol] 0.69 10*3/uL [facility] Monocytes/100 WBC (Bld) 9.2 % [facility] Neutrophils (Bld) [#/Vol] 5.08 10*3/uL [facility] Neutrophils/100 WBC (Bld) 68.0 % [facility] Nucleated RBC (Bld) [#/Vol] [facility] Nucleated RBC/100 WBC (Bld) [Ratio] 0.0 % /100 WBC [facility] Platelet mean volume (Bld) [Entitic vol] [facility] Comment on above: Unable to Report. Platelets (Bld) [#/Vol] 185 10*3/uL [facility] Comment on above: Results checked and verified.No clot detected. RBC (Bld) [#/Vol] 5.15 10*6/uL 3.90 - 5.2 0 m/uL [facility] WBC (Bld) [#/Vol] 7.47 10*3/uL [facility] This is an appended report. These results have been appended to a previously verified report. [facility] Basophils (Bld) [#/Vol] 0.04 10*3/uL Normal <0.11 [facility] Comment on above: Order Comment: Speci men Type: BLOOD SPECIMENOrdering Facility: [facility] Address: [address] [place] [address] Performed By: #### 4 537-7, 06984-7 ####[facility] LABCLIA [id number] [place] [address] [place] Basophils/100 WBC (Bld) 0.5 % Normal [facility] Comment on above: Order Comment: Speci men Type: BLOOD SPECIMENOrdering Facility: [facility] Address: [address] [place] [address] Performed By: #### 4 537-7, 43897-1 ####[facility] LABCLIA [id number] [place] [address] [place] Differential cell count method Nom (Bld) Auto Normal [facility] Comment on above: Order Comment: Speci men Type: BLOOD SPECIMENOrdering Facility: [facility] Address: [address] [place] [address] Performed By: #### 4 537-7, 96135-4 ####[facility] LABCLIA [id number] [place] [address] [place] Eosinophils (Bld) [#/Vol] 10*3/uL Normal <0.46 [facility] Comment on above: Order Comment: Speci men Type: BLOOD SPECIMENOrdering Facility: [facility] Address: [address] [place] [address] Performed By: #### 4 537-7, 19304-0 ####[facility] LABCLIA [id number] [place] [address] [place] Eosinophils/100 WBC (Bld) 0.3 % Normal [facility] Comment on above: Order Comment: Speci men Type: BLOOD SPECIMENOrdering Facility: [facility] Address: [address] [place] [address] Performed By: #### 4 537-7, 18843-1 ####[facility] LABCLIA [id number] [place] [address] [place] Erythrocyte distribution width (RBC) [Ratio] 15.2 % High 11.5-15.0 [facility] Comment on above: Order Comment: Speci men Type: BLOOD SPECIMENOrdering Facility: [facility] Address: [address] [place] [address] Performed By: #### 4 537-7, 20167-1 ####[facility] LABCLIA [id number] [place] [address] [place] Hematocrit (Bld) [Volume fraction] 40.1 % Normal 36.0-46.0 [facility] Comment on above: Order Comment: Speci men Type: BLOOD SPECIMENOrdering Facility: [facility] Address: [address] [place] [address] Performed By: #### 4 537-7, 17669-2 ####[facility] LABCLIA [id number] [place] [address] [place] Hemoglobin (Bld) [Mass/Vol] 12.4 g/dL Normal 11.5-15.5 [facility] Comment on above: Order Comment: Speci men Type: BLOOD SPECIMENOrdering Facility: [facility] Address: [address] [place] [address] Performed By: #### 4 537-7, 53819-5 ####[facility] LABCLIA [id number] [place] [address] [place] Immature granulocytes (Bld) [#/Vol] 10*3/uL Normal <0.10 [facility] Comment on above: Order Comment: Speci men Type: BLOOD SPECIMENOrdering Facility: [facility] Address: [address] [place] [address] Performed By: #### 4 537-7, 68272-4 ####[facility] LABCLIA [id number] [place] [address] [place] Immature granulocytes/100 WBC (Bld) 0.3 % Normal [facility] Comment on above: Order Comment: Speci men Type: BLOOD SPECIMENOrdering Facility: [facility] Address: [address] [place] [address] Performed By: #### 4 537-7, 67333-7 ####[facility] LABCLIA [id number] [place] [address] [place] Lymphocytes (Bld) [#/Vol] 1.62 10*3/uL Normal 1.00-4.00 [facility] Comment on above: Order Comment: Speci men Type: BLOOD SPECIMENOrdering Facility: [facility] Address: [address] [place] [address] Performed By: #### 4 537-7, 41958-2 ####[facility] LABIA [id number] [place] [address] [place] Lymphocytes/100 WBC (Bld) 21.7 % Normal [facility] Comment on above: Order Comment: Speci men Type: BLOOD SPECIMENOrdering Facility: [facility] Address: [address] [place] [address] Performed By: #### 4 537-7, 55682-7 ####[facility] LABIA [id number] [place] [address] [place] MCH (RBC) [Entitic mass] 24.1 pg Low 26.0-34.0 [facility] Comment on above: Order Comment: Speci men Type: BLOOD SPECIMENOrdering Facility: [facility] Address: [address] [place] [address] Performed By: #### 4 537-7, 76558-5 ####[facility] [id number] [place] [address] [place] MCHC (RBC) [Mass/Vol] 30.9 g/dL Normal 30.5-36.0 [facility] Comment on above: Order Comment: Speci men Type: BLOOD SPECIMENOrdering Facility: [facility] Address: [address] [place] [address] Performed By: #### 4 537-7, 59572-0 ####[facility] LABIA [id number] [place] [address] [place] MCV (RBC) [Entitic vol] 77.9 fL Low 80.0-100.0 [facility] Comment on above: Order Comment: Speci men Type: BLOOD SPECIMENOrdering Facility: [facility] Address: [address] [place] [address] Performed By: #### 4 537-7, 65826-5 ####[facility] LABIA [id number] [place] [address] [place] Monocytes (Bld) [#/Vol] 0.69 10*3/uL Normal <0.87 [facility] Comment on above: Order Comment: Speci men Type: BLOOD SPECIMENOrdering Facility: [facility] Address: [address] [place] [address] Performed By: #### 4 537-7, 55886-1 ####[facility] LABCLIA [id number] [place] [address] [place] Monocytes/100 WBC (Bld) 9.2 % Normal [facility] Comment on above: Order Comment: Speci men Type: BLOOD SPECIMENOrdering Facility: [facility] Address: [address] [place] [address] Performed By: #### 4 537-7, 23744-2 ####[facility] LABCLIA [id number] [place] [address] [place] Neutrophils (Bld) [#/Vol] 5.08 10*3/uL Normal 1.45-7.50 [facility] Comment on above: Order Comment: Speci men Type: BLOOD SPECIMENOrdering Facility: [facility] Address: [address] [place] [address] Performed By: #### 4 537-7, 80188-4 ####[facility] LABCLIA [id number] [place] [address] [place] Neutrophils/100 WBC (Bld) 68.0 % Normal [facility] Comment on above: Order Comment: Speci men Type: BLOOD SPECIMENOrdering Facility: [facility] Address: [address] [place] [address] Performed By: #### 4 537-7, 98922-9 ####[facility] LABCLIA [id number] [place] [address] [place] Nucleated RBC (Bld) [#/Vol] 10*3/uL Normal <0.01 [facility] Comment on above: Order Comment: Speci men Type: BLOOD SPECIMENOrdering Facility: [facility] Address: [address] [place] [address] Performed By: #### 4 537-7, 72846-0 ####[facility] LABIA [id number] [place] [address] [place] Nucleated RBC/100 WBC (Bld) [Ratio] 0.0 /100 WBC Normal [facility] Comment on above: Order Comment: Speci men Type: BLOOD SPECIMENOrdering Facility: [facility] Address: [address] [place] [address] Performed By: #### 4 537-7, 57307-3 ####[facility] [id number] [place] [address] [place] Platelet mean volume (Bld) [Entitic vol] Normal [facility] Comment on above: Order Comment: Speci men Type: BLOOD SPECIMENOrdering Facility: [facility] Address: [address] [place] [address] Result Comment: Unab le to Report. Performed By: #### 4 537-7, 68801-4 ####[facility] LABIA [id number] [place] [address] [place] Platelets (Bld) [#/Vol] 185 10*3/uL Normal 150-400 [facility] Comment on above: Order Comment: Speci men Type: BLOOD SPECIMENOrdering Facility: [facility] Address: [address] [place] [address] Result Comment: Resu lts checked and verified.No clot detected. Performed By: #### 4 537-7, 40728-9 ####[facility] LABIA [id number] [place] [address] [place] RBC (Bld) [#/Vol] 5.15 10*6/uL Normal 3.90-5.20 [facility] Comment on above: Order Comment: Speci men Type: BLOOD SPECIMENOrdering Facility: [facility] Address: [address] [place] [id number] Performed By: #### 4 537-7, 55275-3 ####[facility] LABCLIA [id number] [address] [address] [place] WBC (Bld) [#/Vol] 7.47 10*3/uL Normal 3.70-11.00 [facility] Comment on above: Order Comment: Speci men Type: BLOOD SPECIMENOrdering Facility: [facility] Address: [address] [place] [id number] Performed By: #### 4 537-7, 14266-1 ####[facility] LABCLIA [id number] [place] [id number] [place] CNOVon 03-04-2024 CNOV Office Visit ([facility] ) ----- CAROL ANN MARTINEZ ([id number]) 1985 F Date Time Provider Department 03/04/24 1:[address] [facility] During your visit today, we recorded the following information about you: Temperature Pulse Blood pressure Weight 98.1 degrees 95/minute 101/66 55.7 kg Height 1.689 m [place] 03/04/2024 1:00 PM Signed [facility] FA[facility] Please visit our lab at least 3-5 days before your scheduled appointment to have your lab work drawn, if lab work is ordered. This will allow us the ability to review your lab work results with you during your scheduled visit. [facility]: Lab is open Friday - Friday from 6:30am to 5pm and open 8am -12pm on Saturdays. [facility]: Friday- 7:30am to 5:30pm. Fridays [...] medicine, or pediatrics at any of our [facility] locations and main campus. Janice Lane MD 03/04/2024 3:19 PM Signed Annettezayda Martinez is a 38 year old female [...] for next physical. Patient Instructions [facility] Please visit our lab at least 3-5 days before your scheduled appointment to have your lab work drawn, if lab work is ordered. This will allow us the ability to review your lab work results with you during your scheduled visit. MIRIAN MCGRATH (more content not included)... Normal [facility] CRP SerPl-mCncon 03-04-2024 CRP [Mass/Vol] mg/L Normal <0.9 [facility] Comment on above: Order Comment: Speci men Type: BLOOD SPECIMENOrdering Facility: [facility] Address: [address] [place], [place] [address] Performed By: #### 1 157-5, 88694-8, 1988-03, 2276-02 ####[facility] LABCLIA [id number] [address] [address] [place] ESR Westergren method (Bld) [Velocity]on 03-04-2024 ESR (Bld) [Velocity] 5 mm/h Normal 0-20 [facility] Comment on above: Order Comment: Speci men Type: BLOOD SPECIMENOrdering Facility: [facility] Address: [address] [place] [address] Performed By: #### 4 537-7, 58300-2 ####[facility] LABIA [id number] [place] [address] [place] Ferritin SerPl-mCncon 2023 Ferritin [Mass/Vol] 14.2 ng/mL Low 14.7-205.1 [facility] Comment on above: Order Comment: Speci men Type: BLOOD SPECIMENOrdering Facility: [facility] Address: [address] [place] [address] Performed By: #### 1 1571-5, 40612-1, 1988-03, 2276-02 ####[facility] LABIA [id number] [place] [address] [place] Iron and Iron binding capaci ty panelon 03-04-2024 Iron [Mass/Vol] 90 ug/dL Normal 41-186 [facility] Comment on above: Order Comment: Speci men Type: BLOOD SPECIMENOrdering Facility: [facility] Address: [address] [place] [address] Performed By: #### 1 157-5, 39554-5, 1988-03, 2276-02 ####[facility] LABIA [id number] [place] [address] [place] Iron binding capacity [Mass/Vol] 351 ug/dL Normal 232-386 [facility] Comment on above: Order Comment: Speci men Type: BLOOD SPECIMENOrdering Facility: [facility] Address: [address] [place] [address] Performed By: #### 1 1572-5, 50601-3, 1988-03, 2276-02 ####[facility] LABCLIA [id number] [place] [address] [place] Iron/TIBC [Molar ratio] 25.6 % Normal 15.0-57.0 [facility] Comment on above: Order Comment: Speci men Type: BLOOD SPECIMENOrdering Facility: [facility] Address: [address] [place] [address] Performed By: #### 1 1571-5, 89602-5, 1988-03, 2276-02 ####[facility] LABCLIA [id number] [place] [address] [place] No Panel Informationon 03-04 Radiology Study observation (narrative) [facility] Rheumatoid fact SerPl-aCncon 03-04-2024 Rheumatoid factor Qn [IU]/mL Normal <16 [facility] Comment on above: Order Comment: Speci men Type: BLOOD SPECIMENOrdering Facility: [facility] Address: [address] [place] [address] Performed By: #### 1 1571-5, 38796-7, 1988-03, 2276-02 ####[facility] LABCLIA [id number] [place] [id number] [place] Urate SerPl-mCncon Urate [Mass/Vol] 3.1 mg/dL Normal 2.5-6.6 [facility] Comment on above: Order Comment: Speci men Type: BLOOD SPECIMENOrdering Facility: [facility] Address: [address] [place] [address] Performed By: #### 3 084-1 ####[facility] LABCLIA [id number] [facility] [id number] [address] [facility] XR CERVICAL 4V AP/LAT/OBLon 03-04-2024 XR CERVICAL [...] Preserved cervical disc spaces and neural foramina. 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: PSCB Transcribe Date/Time: Mar 08 2024 4:48P Dictated by : VIKTORIYA WALTER MD This examination was interpreted and the report reviewed and electronically signed by: VIKTORIYA WALTER MD on Mar 08 2024 4:50PM EST [id number] Normal [facility] XR LUMBAR 3V AP/LAT/L5-S1on 03-04-2024 XR [...] Unremarkable radiographic appearance of the lumbar spine. 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: ANGEL Transcribe Date/Time: Mar 08 2024 4:47P Dictated by : VIKTORIYA WALTER MD This examination was interpreted and the report reviewed and electronically signed by: VIKTORIYA WALTER MD on Mar 08 2024 4:48PM EST [id number] Normal [facility] A1C with Estimated Average G rober 02-24-2024 Glucose [Mass/Vol] 100 mg/dL Normal [facility] Comment on above: Result Comment: PERF ORMED BY: [place] [address] PATHOLOGIST RETAIL SERVICES PROFESSIONAL ALEN PRICE M.D. Performed By: #### P TT, HCGQNT, CBC, PT, T4F, A1C [facility], TSH3 #### [address] HbA1c (Bld) [Mass fraction] 5.1 % Normal 4.3-5.6 [facility] Comment on above: Result Comment: Incr eased risk for diabetes: 5.7 - 6.4 diabetes: >6.4 glycemic control for adults with diabetes: <7.0 Performed By: #### P TT, HCGQNT, CBC, PT, T4F, A1C [facility], TSH3 #### [address] Activated partial thrombopla stin time (aPTT) in platelet poor plasma by coagulation aOrdered By: Clarke Hu on 02-24-2024 aPTT Coag (PPP) [Time] 33.7 s 25.1-36.5 [facility] Comment on above: A hematocrit value g reater than 55% may lead to inaccurate results in coagulation testing. Patients having hematocrit values >55% require a special collection tube for coagulation studies. Please contact the laboratory at [phone] for redraw instructions. Basophils Auto (Bld) [#/Vol] Ordered By: Clarke Hu on 02-24-2024 Basophils (Bld) [#/Vol] 0.0 10*3/uL 0.0-0.2 [facility] Basophils/100 WBC Auto (Bld) Ordered By: Clarke Hu on 02-24-2024 Basophils/100 WBC (Bld) 0.5 % . [facility] CNPNon 02-24-2024 CNPN Telephone (NEMLuís) ----- CAROL ANN MARTINEZ ([id number]) 1985 F Date Time Provider Department 02/24/24 TOR HERNANDEZ During your visit today, we recorded the following information about you: Shereen Scott 02/24/2024 2:33 PM Signed [employer] Call Name of caller : Milady Relationship to patient: Barney Dickson call phone number : [phone] Reason for call : Other : Brief description of concern : The patient is not considered homebound and they are unable to admit the patient. Champ aBxter LSW 02/26/2024 10:08 AM Signed [facility]. I[facility] stated she encouraged pt to reach out to her insurance company and request an insurance CM to help her find an outside provider to provide services. Request sent to Tor Hernandez APRN.CNP for orders: non-[facility]F outpatient PT, OT and SPT? Once she finds an outside provider, then can send the orders. 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 Problem List [...] extremity [R6 (more content not included)... Normal [facility] Choriogonadotropin.beta subu nit [Units/volume] in Serum or PlasmaOrdered By: Clarke Hu on 02-24-2024 HCG.beta subunit Qn 791.11 m[IU]/mL [facility] Comment on above: Approximate Approxim ate hCG Gestational Age Range (mIU/ml) (weeks)0.2-1 5-50 1-2 50-500 2-3 100-5,000 3-4 500-10,000 4-5 1,000-50,000 5-6 10,000-100,000 6-8 15,000-200,000 8-12 10,000-100,000 Complete Blood Count Auto Di ffon 02-24-2024 Basophils (Bld) [#/Vol] 0.0 10*3/uL Normal 0.0-0.2 [facility] Comment on above: Result Comment: PERF ORMED BY: [place] [address] PATHOLOGIST RETAIL SERVICES PROFESSIONAL ALEN PRICE M.D. Performed By: #### P TT, HCGQNT, CBC, PT, T4F, A1C WTH eA, TSH3 #### [facility] [address] [place] [address] Basophils/100 WBC (Bld) 0.5 % Normal . [facility] Comment on above: Performed By: #### P TT, HCGQNT, CBC, PT, T4F, A1C WTH eA, TSH3 #### [place] [address] [place] Eosinophils (Bld) [#/Vol] 0.0 10*3/uL Normal 0.0-0.45 [facility] Comment on above: Performed By: #### P TT, HCGQNT, CBC, PT, T4F, A1C WTH eA, TSH3 #### [address] [place] [address] [place] Eosinophils/100 WBC (Bld) 0.2 % Normal . [facility] Comment on above: Performed By: #### P TT, HCGQNT, CBC, PT, T4F, A1C WTH eA, TSH3 #### [address] Erythrocyte distribution width (RBC) [Ratio] 15.2 % Normal 11.9-15.3 [facility] Comment on above: Performed By: #### P TT, HCGQNT, CBC, PT, T4F, A1C WTH eA, TSH3 #### [address] Hematocrit (Bld) [Volume fraction] 36.9 % Normal 34.0-46.4 [facility] Comment on above: Performed By: #### P TT, HCGQNT, CBC, PT, T4F, A1C WTH eA, TSH3 #### [address] Hemoglobin (Bld) [Mass/Vol] 11.7 g/dL Low 11.8-15.4 [facility] Comment on above: Performed By: #### P TT, HCGQNT, CBC, PT, T4F, A1C WTH eA, TSH3 #### [address] Lymphocytes (Bld) [#/Vol] 2.1 10*3/uL Normal 1.00-4.8 [facility] Comment on above: Performed By: #### P TT, HCGQNT, CBC, PT, T4F, A1C WTH eA, TSH3 #### [address] Lymphocytes/100 WBC (Bld) 26.9 % Normal . [facility] Comment on above: Performed By: #### P TT, HCGQNT, CBC, PT, T4F, A1C WTH eA, TSH3 #### [address] MCH (RBC) [Entitic mass] 24.4 pg Low 24.7-34.3 [facility] Comment on above: Performed By: #### P TT, HCGQNT, CBC, PT, T4F, A1C WTH eA, TSH3 #### [address] MCV (RBC) [Entitic vol] 76.5 fL Low 80-100 [facility] Comment on above: Performed By: #### P TT, HCGQNT, CBC, PT, T4F, A1C WTH eA, TSH3 #### [address] Mean Corpuscular HGB Conc 31.8 g/dL Low 32.0-35.0 [facility] Comment on above: Performed By: #### P TT, HCGQNT, CBC, PT, T4F, A1C WTH eA, TSH3 #### [address] Monocytes (Bld) [#/Vol] 0.7 10*3/uL Normal 0.0-0.8 [facility] Comment on above: Performed By: #### P TT, HCGQNT, CBC, PT, T4F, A1C WTH eA, TSH3 #### [address] Monocytes/100 WBC (Bld) 9.3 % Normal . [facility] Comment on above: Performed By: #### P TT, HCGQNT, CBC, PT, T4F, A1C WTH eA, TSH3 #### [address] Neutrophils (Bld) [#/Vol] 5.0 10*3/uL Normal 1.8-7.7 [facility] Comment on above: Performed By: #### P TT, HCGQNT, CBC, PT, T4F, A1C WTH eA, TSH3 #### [address] Neutrophils/100 WBC (Bld) 63.1 % Normal . [facility] Comment on above: Performed By: #### P TT, HCGQNT, CBC, PT, T4F, A1C WTH eA, TSH3 #### [address] NRBC% 0.0 /100{WBC} Normal 0-0.5 [facility] Comment on above: Performed By: #### P TT, HCGQNT, CBC, PT, T4F, A1C WT eA, TSH3 #### [address] Platelet mean volume (Bld) [Entitic vol] 11.1 fL High 6.3-10.7 [facility] Comment on above: Performed By: #### P TT, HCGQNT, CBC, PT, T4F, A1C WT eA, TSH3 #### [address] Platelets (Bld) [#/Vol] 187 10*3/uL Normal 150-450 [facility] Comment on above: Performed By: #### P TT, HCGQNT, CBC, PT, T4F, A1C [facility] eA, TSH3 #### [address] RBC (Bld) [#/Vol] 4.82 10*6/uL Normal 3.60-5.00 [facility] Comment on above: Performed By: #### P TT, HCGQNT, CBC, PT, T4F, A1C WT eA, TSH3 #### [address] WBC (Bld) [#/Vol] 7.9 10*3/uL Normal 3.8-11.6 [facility] Comment on above: Performed By: #### P TT, HCGQNT, CBC, PT, T4F, A1C WT eA, TSH3 #### [address] Eosinophils Auto (Bld) [#/Vo l]Ordered By: Clarke Hu on 02-24-2024 Eosinophils (Bld) [#/Vol] 0.0 10*3/uL 0.0-0.45 [facility] Eosinophils/100 WBC Auto (Bl d)Ordered By: Clarke Hu on 02-24-2024 Eosinophils/100 WBC (Bld) 0.2 % . [facility] Erythrocyte distribution wid th Auto (RBC) [Ratio]Ordered By: Clarke Hu on 02-24-2024 Erythrocyte distribution width (RBC) [Ratio] 15.2 % 11.9-15.3 [facility] Free T4 (Free Thyroxine)on 0 02-24-2024 Free T4 [Mass/Vol] 0.82 ng/dL Normal 0.61-1.12 [facility] Comment on above: Performed By: #### P TT, HCGQNT, CBC, PT, T4F, [facility]C [facility], [facility] #### [facility] [address] [place] [address] Glucose mean value [Mass/vol ume] in Blood Estimated from glycated hemoglobinOrdered By: Clarke Hu on 02-24-2024 Average glucose Estimated from glycated hemoglobin (Bld) [Mass/Vol] 100 mg/dL [facility] HCG,Quantitativeon HCG,Quantitative 791.11 m[iU]/mL Normal [facility] Comment on above: Result Comment: Appr oximate Approximate hCG Gestational Age Range (mIU/ml) (weeks) 0.2-1 5-50 1-2 50-500 2-3 100-5,000 3-4 500-10,000 4-5 1,000-50,000 5-6 10,000-100,000 6-8 15,000-200,000 8-12 10,000-100,000 PERFORMED BY: [place] [address] PATHOLOGIST RETAIL SERVICES PROFESSIONAL ALEN PRICE M.D. Performed By: #### P TT, HCGQNT, CBC, PT, T4F, A1C [facility], TSH3 #### [facility] [address] [place] [address] Hematocrit Auto (Bld) [Volum e fraction]Ordered By: Clarke Hu on 02-24-2024 Hematocrit (Bld) [Volume fraction] 36.9 % 34.0-46.4 [facility] Hemoglobin A1c percentageOrd ered By: Clarke Hu on 02-24-2024 HbA1c (Bld) [Mass fraction] 5.1 % 4.3-5.6 [facility] Comment on above: Increased risk for d iabetes: 5.7 - 6.4diabetes: >6.4glycemic control for adults with diabetes: <7.0 Hemoglobin [Mass/volume] in BloodOrdered By: Clarke Hu on 02-24-2024 Hemoglobin (Bld) [Mass/Vol] 11.7 g/dL 11.8-15.4 [facility] INR in Platelet poor plasma by Coagulation assayOrdered By: Clarke Hu on 02-24-2024 INR Coag (PPP) [Relative time] 1.1 {INR} [facility] Comment on above: INR Therapeutic Rang e [...] RBC Auto (Bld) [#/Vol] 7.9 10*3/uL 3.8-11.6 [facility] Lymphocytes Auto (Bld) [#/Vo l]Ordered By: Clarke Hu on 02-24-2024 Lymphocytes (Bld) [#/Vol] 2.1 10*3/uL 1.00-4.8 [facility] Lymphocytes/100 WBC Auto (Bl d)Ordered By: Clarke uH on 02-24-2024 Lymphocytes/100 WBC (Bld) 26.9 % . [facility] MCH Auto (RBC) [Entitic mass ]Ordered By: Clarke Hu on 02-24-2024 MCH (RBC) [Entitic mass] 24.4 pg 24.7-34.3 [facility] MCHC Auto (RBC) [Mass/Vol]Or dered By: Clarke Hu on 02-24-2024 MCHC (RBC) [Mass/Vol] 31.8 g/dL 32.0-35.0 [facility] MCV Auto (RBC) [Entitic vol] Ordered By: Clarke Hu on 02-24-2024 MCV (RBC) [Entitic vol] 76.5 fL 80-100 [facility] Monocytes Auto (Bld) [#/Vol] Ordered By: Clarke Hu on 02-24-2024 Monocytes (Bld) [#/Vol] 0.7 10*3/uL 0.0-0.8 [facility] Monocytes/100 WBC Auto (Bld) Ordered By: Clarke Hu on 02-24-2024 Monocytes/100 WBC (Bld) 9.3 % . [facility] Neutrophils Auto (Bld) [#/Vo l]Ordered By: Clarke Hu on 02-24-2024 Neutrophils (Bld) [#/Vol] 5.0 10*3/uL 1.8-7.7 [facility] Neutrophils/100 WBC Auto (Bl d)Ordered By: Clarke Hu on 02-24-2024 Neutrophils/100 WBC (Bld) 63.1 % . [facility] Nucleated erythrocytes [Pres ence] in Blood by Automated countOrdered By: Clarke Hu on 02-24-2024 Nucleated RBC Auto Ql (Bld) 0.0 /100{WBC} 0-0.5 [facility] Partial Thromboplastin Timeo n 02-24-2024 aPTT Coag (Bld) [Time] 33.7 s Normal 25.1-36.5 [facility] Comment on above: Result Comment: A he matocrit value greater than 55% may lead to inaccurate results in coagulation testing. Patients having hematocrit values >55% require a special collection tube for coagulation studies. Please contact the laboratory at [phone] for redraw instructions. PERFORMED BY: [facility] [address] [place] [address] PATHOLOGIST RETAIL SERVICES PROFESSIONAL ALEN PRICE M.D. Performed By: #### P TT, HCGQNT, CBC, PT, T4F, A1C WTH eA, TSH3 #### [facility] [address] [place] [address] [facility] Platelet mean volume Auto (B ld) [Entitic vol]Ordered By: Clarke Hu on 02-24-2024 Platelet mean volume (Bld) [Entitic vol] 11.1 fL 6.3-10.7 [facility] Platelets Auto (Bld) [#/Vol] Ordered By: Clarke Hu on 02-24-2024 Platelets (Bld) [#/Vol] 187 10*3/uL 150-450 [facility] Prothrombin Time INRon 02-23 INR Coag (PPP) [Relative time] 1.1 {INR} Normal [facility] Comment on above: [...] PT, T4F, A1C WTH eA, TSH3 #### [facility] [address] [place] [address] [facility] PT Coag (PPP) [Time] 12.2 s Normal 9.0-12.9 [facility] Comment on above: Result Comment: A he matocrit value greater than 55% may lead to inaccurate results in coagulation testing. Patients having hematocrit values >55% require a special collection tube for coagulation studies. Please contact the laboratory at [phone] for redraw instructions. Performed By: #### P TT, HCGQNT, CBC, PT, T4F, A1C WTH eA, TSH3 #### [facility] [address] [place] [address] [facility] Prothrombin time (PT)Ordered By: Clarke Hu on 02-24-2024 PT Coag (PPP) [Time] 12.2 s 9.0-12.9 [facility] Comment on above: A hematocrit value g reater than 55% may lead to inaccurate results in coagulation testing. Patients having hematocrit values >55% require a special collection tube for coagulation studies. Please contact the laboratory at [phone] for redraw instructions. RBC Auto (Bld) [#/Vol]Ordere d By: Clarke Hu on 02-24-2024 RBC (Bld) [#/Vol] 4.82 10*6/uL 3.60-5.00 [facility] Thyroid Stimulating Hormoneo n 02-24-2024 TSH Qn 0.96 m[IU]/L Normal 0.45-5.33 [facility] Comment on above: Performed By: #### P TT, HCGQNT, CBC, PT, T4F, A1C WTH eA, TSH3 #### [address] Thyrotropin [Units/volume] i n Serum or PlasmaOrdered By: Clarek Hu on 02-24-2024 TSH Qn 0.96 m[IU]/L 0.45-5.33 [facility] Thyroxine (T4) free [Mass/vo lume] in Serum or PlasmaOrdered By: Clarke Hu on 02-24-2024 Free T4 [Mass/Vol] 0.82 ng/dL 0.61-1.12 [facility] WBC Auto (Bld) [#/Vol]Ordere d By: Clarke Hu on 02-24-2024 WBC (Bld) [#/Vol] 7.9 10*3/uL 3.8-11.6 [facility] CNPLilli 02-18-2024 TREEN [facility] ----- CAROL ANN MARTINEZ ([id number]) 1985 F Date Time Provider Department 02/18/24 CHAMP BAXTER During your visit today, we recorded the following information about you: Diana Garcia 02/18/2024 8:55 AM Signed Tex Call Name of caller : [facility] Relationship to patient: Self Return call phone number : [phone] Reason for call : Would like a [...] Date Reviewed: 01/19/2024 Reviewed by: Kaitlyn Forbes, hydraulic rockbreaker operator - Fully Assessed Reason for Visit: [...] (FLONASE) 50 mcg/actuation nasal spray Use 1 Transfer in each nostril once daily. Problem List [...] Encounter Status:Closed by CHAMP BAXTER on 02/18/24 [facility] CAROL ANN MARTINEZ ([id number]) 1985 F Date Time Provider Department 02/03/24 [facility]AMP BAXTER [facility] During your visit today, we recorded the following information about you: Clarice Zepeda HUC 02/03/2024 1:33 PM Signed Tex Call Name of caller : Iris Devika Relationship to patient: [facility] Return call phone number : [phone] Reason for call : Other : Brief description of concern : Has follow up questions Champ Baxter LSW 02/04/2024 9:37 AM Signed Returned CM Iris's call. Iris stated pt was approved for a [facility] aide one day a week for 45 min to assist with additonal care needs. Iris is requesting an order from the doctor to start care. I will e-mail Iris the order when completed. DEZ Archer, [facility] Social Work Allergies As of Date: 02/03/2024 [...] Date Reviewed: 01/19/2024 Reviewed by: Kaitlyn Forbes, hydraulic rockbreaker operator - Fully Assessed Reason for Visit: Patient Question [5547] Prescriptions as of 02/04/2024 - Norethindrone, Contraceptive, [...] (FLONASE) 50 mcg/actuation nasal spray Use 1 Transfer in each nostril once daily. Problem List [...] deficit [R41.841] 07/22/2022 07/17/2023 Encounter Status:Closed by CAHMP BAXTER on 02/04/24 Normal [facility] MR Thoracic spine WO and W c ontrast Joe 01-19-2024 [facility] MRI THORACIC SPINE WO/W IVCO Non 01-19-2024 MRI THORACIC SPINE WO/W IVCON * * *Final Report* * * DATE OF EXAM: Jan 19 2024 3:15PM [facility] 0326 - MRI THORACIC SPINE WO/W [...] identified to suggest active or progressive disease. 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: ANGEL Transcribe Date/Time: Jan 19 2024 3:31P Dictated by : LOVE WHARTON MD This examination was interpreted and the report reviewed and electronically signed by: LOVE WHARTON MD on Jan 19 2024 3:43PM EST [id number] Normal [facility] CNPNon 01-05-2024 CNPN Telephone (NEMSMN) ----- CAROL ANN MARTINEZ ([id number]) 1985 F Date Time Provider Department 01/05/24 CHAMP BAXTERLuís During your visit today, we recorded [...] Date Reviewed: 12/25/2023 Reviewed by: Tor Hernandez APRN.JEWELRY CASTING MODEL MAKER APPRENTICE - Fully Assessed Reason for Visit: Appointment [...] (FLONASE) 50 mcg/actuation nasal spray Use 1 Transfer in each nostril once daily. Problem List [...] Encounter Status:Closed by NADINE JAMES on 01/05/24 [facility] CNOVon 12-25-2023 CNOV Office Visit (NEMSLR ) ----- CAROL ANN MARTINEZ F ([id number]) 1985 F Date Time Provider Department 12/25/23 11:00 AM TOR HERNANDEZ NEMSMITUL During your visit today, we recorded the following information about you: Pulse Blood pressure Weight Last Period 87/minute 95/67 56.8 kg 12/21/23 Tor Hernandez APRN.JEWELRY CASTING MODEL MAKER APPRENTICE 12/25/2023 12:09 PM [facility] FOLLOWUP/ESTABLISHED PATIENT VISIT PRINCIPAL NEUROLOGIC DIAGNOSIS: Multiple Sclerosis DISEASE SUMMARY Date of onset: 03/2007 Date of diagnosis of MS: 03/2007 Disease course at onset: Relapsing-Remitting Current disease course: Progressive without relapses Previous disease therapies: - Betaseron [id number] - Copaxone - Tysabri 2009-Summer 2019 (stopped [...] over 3 weeks following occipital relase - 4563-2181 recurrent OS ON - several relapses including L numbness, weakness, constipation, urinary urgency - 2019 R weakness and numbness needing a wheelchair, hospitalized at [facility] (off Tysabri x3 months due to [...] 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 She has no past medical history of Asthma, Blood dyscrasia, Breast disorder, Chlamydia, Chronic kidney disease, Complication of anesthesia, Coronary artery disease, Diabetes ([facility]), Diabetes, gestational, Gonorrhea, Herpes simplex virus (HSV) infection, History of pre-eclampsia in prior , currently , HIV infection ([facility]), Hypertension, Infertility, female, L (more content not included)... Normal [facility] 12-25-2023 [facility] Telephone (HCSIND) ----- CAROL ANN MARTINEZ ([id number]) 1985 F Date Time Provider Department 12/25/23 LISA ELLIOTT During your visit today, we recorded the following information about you: Lisa Elliott 12/25/2023 2:08 PM Addendum Spoke with Roxy from [facility] and accepted the patient for Home Care. Thank you for the referral of your patient to [facility]. At this time, we are unable to accommodate your patient's needs in a safe and timely fashion. In order to help your patient receive quality home care, we will assist in finding alternate staffing. I have forwarded the referral to [facility], and it is pending. I will notify you when we have an accepting agency. Thank you. Thank you for the referral of your patient to [facility]. At this time, we are unable to accommodate your patient's needs in a safe and timely fashion. In order to help your patient receive quality home care, we will assist in finding alternate staffing. I have forwarded the referral to [facility], and it is declined. I will notify you when we have an accepting agency. Thank you. Thank you for the referral of your patient to [facility]. At this time, we are unable to accommodate your patient's needs in a safe and timely fashion. In order to help your patient receive quality home care, we will assist in finding alternate staffing. I have forwarded the referral to [facility], and it is declined. I will notify [...] Date Reviewed: 12/25/2023 Reviewed by: Tor Hernandez APRN.JEWELRY CASTING MODEL MAKER APPRENTICE - Fully Assessed Reason for Visit: Home [...] (FLONASE) 50 mcg/actuation nasal spray Use 1 Transfer in each nostril once daily. Problem List As Of Date 12/25/2023 Noted Resolved Multiple sclerosis (HCC) [G35] 11/15/2019 Chronic insomnia [F51.04] 01/04/2020 AMA (advanced maternal age) primigravida 35+, s*2020 01/11/2021 History of loop electrosurgical excision proced*2020 01/11/2021 Poor growth affecting (more content not included)... Normal [facility] HCG ( test) Ql (U)o n 12-23-2023 Interpretation and review of laboratory results Normal [facility] Preg Test, Ur Negative [facility] - Microbiology an d Antimicrobial susceptibilityon 12-23-2023 SARS-CoV-2 (COVID-19) RNA DEIRDRE+probe Ql (Unsp spec) Negative [facility] No Panel Informationon 12-[address] [facility] FLU B Negative [facility] Interpretation and review of laboratory results Normal [facility] Toño 11-28-2023 L Specimen: [id number] Received: 11/28/23 Status: ALLISON Yoon Num: [id number] Spec Type: Surgical Subm Dr: Clarke Hu Tissues: A Endometrium - Curettings (EMC) Procedures: HE/2, Gross/Micro L4 Age/ Patient Sex Location Account Attending Physician Carol Ann Martinez 38/F LABELL [id number] Clarke Hu SPEC NUM: [id number] RECD: 11/28/23 STATUS: ALLISON YOON NUM: [id number] ALLAN: 11/28/[address]: Clarke Hu ENTERED: 11/28/[address] [facility] DR: Sherry,Lab SPEC TYPE: Surgical DEPT: IDRIS [...] in one cassette labeled A1. CPT Codes 30308 Specimen: [id number] Received: 11/28/23 Status: ALLISON Yoon Num: [id number] Spec Type: Surgical Subm Dr: Clarke Hu Tissues: A Endometrium - Curettings (EMC) Procedures: HIRA/Jamila Maravilla/Kelly L4 Patient: Carol Ann Martinez [id number] (Continued) Signed (signature on file) Edu Watkins MD 12/01/23 2159 Normal [facility] CNSWon 10-13-2023 CNSW Social Work (HEMASA) ----- CAROL ANN MARTINEZ F ([id number]) 1985 F Date Time Provider Department 10/13/23 [...] (FLONASE) 50 mcg/actuation nasal spray Use 1 Transfer in each nostril once daily. Problem List [...] Status:Closed by ALEXANDRA HOGAN on 10/13/23 Normal [facility] CBC W Auto Differential pane l (Bld)on 09-25-2023 Basophils (Bld) [#/Vol] 0.03 10*3/uL <0.11 k/uL [facility] Basophils/100 WBC (Bld) 0.8 % [facility] Differential cell count method Nom (Bld) Auto [facility] Eosinophils (Bld) [#/Vol] 0.07 10*3/uL <0.46 k/uL [facility] Eosinophils/100 WBC (Bld) 1.8 % [facility] Erythrocyte distribution width (RBC) [Ratio] 17.1 % High 11.5 - 15.0 % [facility] Hematocrit (Bld) [Volume fraction] 41.0 % 36.0 - 46.0 % [facility] Hemoglobin (Bld) [Mass/Vol] 12.5 g/dL 11.5 - 15.5 g/dL [facility] Immature granulocytes (Bld) [#/Vol] <0.10 k/uL [facility] Immature granulocytes/100 WBC (Bld) 0.0 % [facility] Lymphocytes (Bld) [#/Vol] 2.63 10*3/uL 1.00 - 4.00 k/uL [facility] Lymphocytes/100 WBC (Bld) 66.4 % [facility] MCH (RBC) [Entitic mass] 23.7 pg Low 26.0 - 34.0 pg [facility] MCHC (RBC) [Mass/Vol] 30.5 g/dL 30.5 - 36.0 g/dL [facility] MCV (RBC) [Entitic vol] 77.7 fL Low 80.0 - 100.0 fL [facility] Monocytes (Bld) [#/Vol] 0.51 10*3/uL <0.87 k/uL [facility] Monocytes/100 WBC (Bld) 12.9 % [facility] Neutrophils (Bld) [#/Vol] 0.72 10*3/uL Low 1.45 - 7.50 k/uL [facility] Neutrophils/100 WBC (Bld) 18.1 % [facility] Nucleated RBC (Bld) [#/Vol] <0.01 k/uL [facility] Nucleated RBC/100 WBC (Bld) [Ratio] 0.0 /100 WBC [facility] Platelet mean volume (Bld) [Entitic vol] [facility] Platelets (Bld) [#/Vol] 179 10*3/uL 150 - 400 k/uL [facility] RBC (Bld) [#/Vol] 5.28 10*6/uL High 3.90 - 5.2 0 m/uL [facility] WBC (Bld) [#/Vol] 3.96 10*3/uL 3.70 - 11. 00 k/uL [facility] Comprehensive metabolic 2000 panelon 09-25-2023 Albumin [Mass/Vol] 4.5 g/dL 3.9 - 4.9 g/dL [facility] ALP [Catalytic activity/Vol] 58 U/L 34 - 123 U/L [facility] ALT [Catalytic activity/Vol] 11 U/L 7 - 38 U/L [facility] Anion gap [Moles/Vol] 9 mmol/L 9 - 18 mmol/L [facility] AST [Catalytic activity/Vol] 17 U/L 13 - 35 U/L [facility] Bilirubin [Mass/Vol] 0.5 mg/dL 0.2 - 1 .3 mg/dL [facility] Calcium [Mass/Vol] 9.5 mg/dL 8.5 - 10. 2 mg/dL [facility] Chloride [Moles/Vol] 106 mmol/L High 97 - 10 5 mmol/L [facility] CO2 [Moles/Vol] 26 mmol/L 22 - 30 mmol/L [facility] Creatinine [Mass/Vol] 0.95 mg/dL 0.58 - 0.96 mg/dL [facility] Estimated Glomerular Filtration Rate 79 mL/min/1.73m >=60 mL/min/1.73m [facility] Glucose [Mass/Vol] 89 mg/dL 74 - 99 mg/dL [facility] Potassium [Moles/Vol] 3.6 mmol/L Low 3.7 - 5.1 mmol/L [facility] Protein [Mass/Vol] 7.4 g/dL 6.3 - 8.0 g/dL [facility] Sodium [Moles/Vol] 141 mmol/L 136 - 144 mmol/L [facility] Urea nitrogen [Mass/Vol] 14 mg/dL 7 - 21 mg/dL [facility] HBV surface Ab Ql (S)on 09-10 HBV surface Ab Qn (S) 528.76 mIU/mL [facility] HEP B CORE AB TOTALon 2022 HBV core Ab Ql (S) Negative Negative [facility] HEP B SURF ABon 09-25-2023 HBV surface Ab Ql (S) Positive [facility] HEP B SURF AG SCRNon 023 HBV surface Ag Ql (S) Negative Negative [facility] HEPATITIS C ANTIBODY IA WITH CONFIRMATIONon 09-25-2023 HCV Ab Ql (S) Negative Negative [facility] PELVIC US WHIon 08-26-2023 [facility] Trichmonas Vaginalis Screen (EIA)on 01-24-2023 Trichomonas Vaginalis Screen (EIA) Negative Normal [facility] Comment on above: Performed By: #### E TRIC #### [facility] [address] [place] [address] Wet [employer] On berry 01-24-2023 Wet Prep Clue Cellls 1+ Abnormal [facility] Comment on above: Performed By: #### W ETPR #### [facility] [address] [place] [address] Wet Prep Trichomonas See EIA Normal [facility] Comment on above: Performed By: #### W ETPR #### [facility] [address] [place] [address] Wet Prep Yeast None Seen Normal [facility] Comment on above: Performed By: #### W ETPR #### [facility] [address] [place] [address] CBC W Auto Differential pane l (Bld)on 01-17-2023 Basophils (Bld) [#/Vol] 0.07 10*3/uL <0.11 k/uL [facility] Basophils/100 WBC (Bld) 1.0 % [facility] Differential cell count method Nom (Bld) Auto [facility] Eosinophils (Bld) [#/Vol] 0.07 10*3/uL <0.46 k/uL [facility] Eosinophils/100 WBC (Bld) 1.0 % [facility] Erythrocyte distribution width (RBC) [Ratio] 15.5 % High 11.5 - 15.0 % [facility] Hematocrit (Bld) [Volume fraction] 31.5 % Low 36.0 - 46.0 % [facility] Hemoglobin (Bld) [Mass/Vol] 9.4 g/dL Low 11.5 - 15.5 g/dL [facility] Immature granulocytes (Bld) [#/Vol] <0.10 k/uL [facility] Immature granulocytes/100 WBC (Bld) 0.3 % [facility] Lymphocytes (Bld) [#/Vol] 2.30 10*3/uL 1.00 - 4.00 k/uL [facility] Lymphocytes/100 WBC (Bld) 32.7 % [facility] MCH (RBC) [Entitic mass] 22.2 pg Low 26.0 - 34.0 pg [facility] MCHC (RBC) [Mass/Vol] 29.8 g/dL Low 30.5 - 36.0 g/dL [facility] MCV (RBC) [Entitic vol] 74.3 fL Low 80.0 - 100.0 fL [facility] Monocytes (Bld) [#/Vol] 0.51 10*3/uL <0.87 k/uL [facility] Monocytes/100 WBC (Bld) 7.2 % [facility] Neutrophils (Bld) [#/Vol] 4.07 10*3/uL 1.45 - 7.50 k/uL [facility] Neutrophils/100 WBC (Bld) 57.8 % [facility] Nucleated RBC (Bld) [#/Vol] <0.01 k/uL [facility] Nucleated RBC/100 WBC (Bld) [Ratio] 0.0 /100 WBC [facility] Platelet mean volume (Bld) [Entitic vol] 13.6 fL High 9.0 - 12.7 fL [facility] Platelets (Bld) [#/Vol] 304 10*3/uL 150 - 400 k/uL [facility] RBC (Bld) [#/Vol] 4.24 10*6/uL 3.90 - 5.2 0 m/uL [facility] WBC (Bld) [#/Vol] 7.04 10*3/uL 3.70 - 11. 00 k/uL [facility] Comprehensive metabolic 2000 panelon 01-17-2023 Albumin [Mass/Vol] 4.5 g/dL 3.9 - 4.9 g/dL [facility] ALP [Catalytic activity/Vol] 62 U/L 34 - 123 U/L [facility] ALT [Catalytic activity/Vol] 11 U/L 7 - 38 U/L [facility] Anion gap [Moles/Vol] 9 mmol/L 9 - 18 mmol/L [facility] AST [Catalytic activity/Vol] 18 U/L 13 - 35 U/L [facility] Bilirubin [Mass/Vol] 0.3 mg/dL 0.2 - 1 .3 mg/dL [facility] Calcium [Mass/Vol] 9.8 mg/dL 8.5 - 10. 2 mg/dL [facility] Chloride [Moles/Vol] 104 mmol/L 97 - 10 5 mmol/L [facility] CO2 [Moles/Vol] 26 mmol/L 22 - 30 mmol/L [facility] Creatinine [Mass/Vol] 0.79 mg/dL 0.58 - 0.96 mg/dL [facility] Estimated Glomerular Filtration Rate 99 mL/min/1.73m >=60 mL/min/1.73m [facility] Glucose [Mass/Vol] 69 mg/dL Low 74 - 99 mg/dL [facility] Potassium [Moles/Vol] 4.2 mmol/L 3.7 - 5.1 mmol/L [facility] Protein [Mass/Vol] 7.9 g/dL 6.3 - 8.0 g/dL [facility] Sodium [Moles/Vol] 139 mmol/L 136 - 144 mmol/L [facility] Urea nitrogen [Mass/Vol] 11 mg/dL 7 - 21 mg/dL [facility] MR Brain WO and W [...] Improvement: None. New Enhancing Lesions: None T2 Hale of Disease: Mild. Parenchymal Volume Loss: None. [...] history of multiple sclerosis. Cord T2 Plaque Hale: Moderate New T2 Lesions: None Interval Cord [...] equal to 2mm). DIVISION OF RADIOLOGY [facility] * * *Final Report* * [...] Improvement: None. New Enhancing Lesions: None T2 Hale of Disease: Mild. Parenchymal Volume Loss: None. [...] history of multiple sclerosis. Cord T2 Plaque Hale: Moderate New T2 Lesions: None Interval Cord [...] vertebrae with counting from the craniocervical junction. 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: [employer] Transcribe Date/Time: Jan 02 2023 12:13P Dictated by : JEANIE MAKI MD This examination was interpreted and the report reviewed and electronically signed by: JEANIE MAKI MD on Jan 02 2023 12:23PM [place] MR Cervical spine WO and W c ontrast Joe 01-02-2023 * * *Final Report* * * DATE OF EXAM: Jan 02 2023 11:24AM LN 0298 - MRI CERVICAL SPINE WO/W IVCON [...] Improvement: None. New Enhancing Lesions: None T2 Hale of Disease: Mild. Parenchymal Volume Loss: None. [...] history of multiple sclerosis. Cord T2 Plaque Hale: Moderate New T2 Lesions: None Interval Cord [...] equal to 2mm). DIVISION OF RADIOLOGY Provider, [facility] - 01/02/2023 * * *Final Report* * [...] Improvement: None. New Enhancing Lesions: None T2 Hale of Disease: Mild. Parenchymal Volume Loss: None. [...] history of multiple sclerosis. Cord T2 Plaque Hale: Moderate New T2 Lesions: None Interval Cord [...] vertebrae with counting from the craniocervical junction. 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: [facility] Transcribe Date/Time: Jan 02 2023 12:13P Dictated by : JEANIE MAKI MD This examination was interpreted and the report reviewed and electronically signed by: JEANIE MAKI MD on Jan 02 2023 12:23PM EST [facility] No Panel Informationon 01-02 IMPRESSION: [...] vertebrae with counting from the craniocervical junction. 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: [facility] Transcribe Date/Time: Jan 02 2023 12:13P Dictated by : JEANIE MAKI MD This examination was interpreted and the report reviewed and electronically signed by: JEANIE MAKI MD on Jan 02 2023 12:23PM [facility] DIVISION OF RADIOLOGY Brain Enhancing Lesions None [facility] Brain Interval Improvement None [facility] Brain New T2 Lesions None Site [facility] Brain Other Significant MRI Findings None. [facility] Brain Parenchymal Volume Loss None [facility] Brain T2 Hale of Disease Mild [facility] Cervical spine enhancing lesions None [facility] Cervical Spine New T2 Lesions None [facility] Cervical Spine T2 Hale of Disease Moderate [facility] Radiology Study observation (narrative) [facility] No Panel InformationOrdered By: [facility] Provider on 01-02-2023 [facility] C.trachomatis N.gonorrhoeae DNAon 12-10-2022 C. trachomatis DNA DEIRDRE+probe Ql (Unsp spec) Negative Normal Negative [facility] N. gonorrhoeae DNA DEIRDRE+probe Ql (Unsp spec) Negative Normal Negative [facility] Trichmonas Vaginalis Screen (EIA)on 12-06-2022 Trichomonas Vaginalis Screen (EIA) Negative Normal [facility] Comment on above: Performed By: #### E TRIC #### [facility] [address] [place] [address] [employer] On berry 12-06-2022 Wet Prep Clue Cellls 1+ Abnormal [facility] Comment on above: Performed By: #### W ETPR #### [facility] [address] [place] [address] Wet Prep Trichomonas See EIA Normal [facility] Comment on above: Performed By: #### W ETPR #### [facility] [address] [place] [address] Wet Prep Yeast None Seen Normal [facility] Comment on above: Performed By: #### W ETPR #### [facility] [address] [place] [address] Albumin [Mass/volume] in Ser um or PlasmaOrdered By: Vishal Agarwal on 10-27-2022 Albumin [Mass/Vol] 4.1 g/dL 3.2-5.5 [facility] Basophils Auto (Bld) [#/Vol] Ordered By: Vishal Agarwal on 10-27-2022 Basophils (Bld) [#/Vol] 0.0 10*3/uL 0.0-0.2 [facility] Basophils/100 WBC Auto (Bld) Ordered By: Vishal Agarwal on 10-27-2022 Basophils/100 WBC (Bld) 0.4 % . [facility] COVID CepheidOrdered By: Brook Agarwal on 10-27-2022 SARS-CoV-2 (COVID-19) Ab IA Ql Positive Negative [facility] Comment on above: This is a duplicate [employer] Xpress CoV-2/Flu/RSV Plus RNA by RT-PCR result to be used for statistical tracking purpose only. SARS-CoV-2 (COVID-19) RNA DEIRDRE+probe Ql (Unsp spec) [facility] Creatinine and Glomerular fi ltration rate.predicted panel (S/P/Bld)Ordered By: Vishal Agarwal on 10-27-2022 Creatinine [Mass/Vol] 0.96 mg/dL 0.44-1.03 [facility] Eosinophils Auto (Bld) [#/Vo l]Ordered By: Vishal Agarwal on 10-27-2022 Eosinophils (Bld) [#/Vol] 0.0 10*3/uL 0.0-0.45 [facility] Eosinophils/100 WBC Auto (Bl d)Ordered By: Vishal Agarwal on 10-27-2022 Eosinophils/100 WBC (Bld) 0.0 % . [facility] Erythrocyte distribution wid th Auto (RBC) [Ratio]Ordered By: Vishal Agarwal on 10-27-2022 Erythrocyte distribution width (RBC) [Ratio] 17.4 % 11.9-15.3 [facility] Estimated glomerular filtrat ion rate (GFR) non- AmericanOrdered By: Vishal Agarwal on 10-27-2022 GFR/1.73 sq M.predicted among non-blacks MDRD (S/P/Bld) [Vol rate/Area] > 60 mL/Min [facility] Globulin Calc (S) [Mass/Vol] Ordered By: Vishal Agarwal on 10-27-2022 Globulin (S) [Mass/Vol] 3.5 g/dL [facility] Hematocrit Auto (Bld) [Volum e fraction]Ordered By: Vishal Agarwal on 10-27-2022 Hematocrit (Bld) [Volume fraction] 38.7 % 34.0-46.4 [facility] Hemoglobin [Mass/volume] in BloodOrdered By: Vishal Agarwal on 10-27-2022 Hemoglobin (Bld) [Mass/Vol] 12.1 g/dL 11.8-15.4 [facility] Leukocytes [#/volume] correc che for nucleated erythrocytes in Blood by Automated counOrdered By: Vishal Agarwal on 10-27-2022 WBC corrected for nucl RBC Auto (Bld) [#/Vol] 4.5 10*3/uL 3.8-11.6 [facility] Lymphocytes Auto (Bld) [#/Vo l]Ordered By: Vishal Agarwal on 10-27-2022 Lymphocytes (Bld) [#/Vol] 0.5 10*3/uL 1.00-4.8 [facility] Lymphocytes/100 WBC Auto (Bl d)Ordered By: Vishal Agarwal on 10-27-2022 Lymphocytes/100 WBC (Bld) 10.8 % . [facility] MCH Auto (RBC) [Entitic mass ]Ordered By: Vishal Agarwal on 10-27-2022 MCH (RBC) [Entitic mass] 23.7 pg 24.7-34.3 [facility] MCHC Auto (RBC) [Mass/Vol]Or dered By: Vishal Agarwal on 10-27-2022 MCHC (RBC) [Mass/Vol] 31.2 g/dL 32.0-35.0 [facility] MCV Auto (RBC) [Entitic vol] Ordered By: Vishal Agarwal on 10-27-2022 MCV (RBC) [Entitic vol] 76.0 fL 80-100 [facility] Monocyte distribution width [Entitic volume] in Blood by AutomatedOrdered By: Vishal Agarwal on 10-27-2022 Monocyte distribution width Auto (Bld) [Entitic vol] 24.86 % 0.00-20.00 [facility] Comment on above: For adults in ED, MD W > 20.0 may be associated with a higher risk of sepsis during the first 12 hrs of hospital admission Monocytes Auto (Bld) [#/Vol] Ordered By: Vishal Agarwal on 10-27-2022 Monocytes (Bld) [#/Vol] 0.8 10*3/uL 0.0-0.8 [facility] Monocytes/100 WBC Auto (Bld) Ordered By: Vishal Agarwal on 10-27-2022 Monocytes/100 WBC (Bld) 16.8 % . [facility] Neutrophils Auto (Bld) [#/Vo l]Ordered By: Vishal Agarwal on 10-27-2022 Neutrophils (Bld) [#/Vol] 3.2 10*3/uL 1.8-7.7 [facility] Neutrophils/100 WBC Auto (Bl d)Ordered By: Vishal Agarwal on 10-27-2022 Neutrophils/100 WBC (Bld) 72.0 % . [facility] No Panel InformationOrdered By: Vishal Agarwal on 10-27-2022 Estimated GFR () > 60 mL/Min [facility] Comment on above: GFR estimated refere nce range: According to KDOQI guidelines, <60 ml/min/1.73m2 is sufficient to diagnose a patient with chronic kidney disease. Pharmacy Creatinine Clearance (Chem 75.11 [facility] Nucleated erythrocytes [Pres ence] in Blood by Automated countOrdered By: Vishal Agarwal on 10-27-2022 Nucleated RBC Auto Ql (Bld) 0.1 /100{WBC} 0-0.5 [facility] Platelet mean volume Auto (B ld) [Entitic vol]Ordered By: Vishal Agarwal on 10-27-2022 Platelet mean volume (Bld) [Entitic vol] 11.0 fL 6.3-10.7 [facility] Platelets Auto (Bld) [#/Vol] Ordered By: Vishal Agarwal on 10-27-2022 Platelets (Bld) [#/Vol] 148 10*3/uL 150-450 [facility] Protein [Mass/volume] in Ser um or PlasmaOrdered By: Vishal Agarwal on 10-27-2022 Protein [Mass/Vol] 7.6 g/dL 6.1-7.9 [facility] RBC Auto (Bld) [#/Vol]Ordere d By: Vishal Agarwal on 10-27-2022 RBC (Bld) [#/Vol] 5.10 10*6/uL 3.60-5.00 [facility] Serum or plasma alanine gannon otransferase measurement without P-5'-P (enzymatic activiOrdered By: Vishal Agarwal on 10-27-2022 ALT No additional P-5'-P [Catalytic activity/Vol] 18 U/L 10-60 [facility] Serum or plasma albumin/glob ulin mass ratioOrdered By: Vishal Agarwal on 10-27-2022 Albumin/Globulin [Mass ratio] 1.2 {ratio} [facility] Serum or plasma alkaline bull sphatase measurement (enzymatic activity/volume)Ordered By: Vishal Agarwal on 10-27-2022 ALP [Catalytic activity/Vol] 43 U/L 32-92 [facility] Serum or plasma anion gap de terminationOrdered By: Vishal Agarwal on 10-27-2022 Anion gap [Moles/Vol] 13.5 mmol/L 6.0-15.0 [facility] Serum or plasma aspartate am inotransferase measurement (enzymatic activity/volume)Ordered By: Vishal Agarwal on 10-27-2022 AST [Catalytic activity/Vol] 24 U/L 10-42 [facility] Serum or plasma calcium scotty urement (mass/volume)Ordered By: Vishal Agarwal on 10-27-2022 Calcium [Mass/Vol] 9.2 mg/dL 8.2-10.2 [facility] Serum or plasma chloride suzie surement (moles/volume)Ordered By: Vishal Agarwal on 10-27-2022 Chloride [Moles/Vol] 101 mmol/L 95-114 [facility] Serum or plasma glucose scotty urement (mass/volume)Ordered By: Vishal Agarwal on 10-27-2022 Glucose [Mass/Vol] 102 mg/dL 70-100 [facility] Comment on above: ADA recommended refe rence rangeRandom Glucose Reference Range is dependent on time and content of last meal. Glucose of more than 200 mg/dL in a nonstressed, ambulatory subject supports the diagnosis of Diabetes Mellitus. Serum or plasma potassium me asurement (moles/volume)Ordered By: Vishal Agarwal on 10-27-2022 Potassium [Moles/Vol] 3.7 mmol/L 3.5-5.1 [facility] Serum or plasma sodium measu rement (moles/volume)Ordered By: Vishal Agarwal on 10-27-2022 Sodium [Moles/Vol] 134 mmol/L 136-146 [facility] Serum or plasma total biliru bin measurement (mass/volume)Ordered By: Vishal Amezcuaanson on 10-27-2022 Bilirubin [Mass/Vol] 0.8 mg/dL 0.3-1.2 [facility] Serum or plasma total carbon dioxide measurement (moles/volume)Ordered By: Vishal Amezcuaanson on 10-27-2022 CO2 [Moles/Vol] 23.2 mmol/L 22.0-30.0 [facility] Serum or plasma urea nitroge n measurement (mass/volume)Ordered By: Vishal Any on 10-27-2022 Urea nitrogen [Mass/Vol] 10 mg/dL 9- [facility] WBC Auto (Bld) [#/Vol]Ordere d By: Vishal Any on 10-27-2022 WBC (Bld) [#/Vol] 4.5 10*3/uL 3.8-11.6 [facility] HBV surface Ab IA Ql (S)on 1 11-27-2021 HBV surface Ag Ql (S) Negative Negative [facility] HEP B CORE AB TOTALon 2021 HBV core Ab Ql (S) Negative Negative [facility] HEP B SURF AB QUALon 022 HBV surface Ab Ql (S) Positive Abnormal Negative [facility] HEP C AB IA W/CONF SCRNon HCV Ab Ql (S) Negative Negative [facility] MR Brain WO and W contrast I Von 07-23-2022 * * *Final Report* * * DATE OF EXAM: Jul 23 2022 10:56AM LN 0295 - MRI BRAIN WO/W IVCON [...] Improvement: None. New Enhancing Lesions: None T2 Hale of Disease: Mild. Parenchymal Volume Loss: None. Other Significant Findings: None. MR CERVICAL: Counting reference: Craniocervical junction. Anatomic Variants: None. Alignment: Alignment is anatomic. Craniocervical Junction: Craniocervical junction is normal. Cord Findings: Patchy foci of hyperintensity are noted in the cervical cord on the T2, IR and axial gradient echo images compatible with the history of multiple sclerosis. Cord T2 Plaque Hale: Moderate New T2 Lesions: None Interval Cord [...] history of multiple sclerosis. Cord T2 Plaque Hale: Moderate New T2 Lesions: Greater than three [...] equal to 2mm). DIVISION OF RADIOLOGY Provider, [facility] * * *Final Report* * * DATE OF EXAM: Jul 23 2022 10:56AM [facility] 0295 - MRI BRAIN WO/W IVCON [...] Improvement: None. New Enhancing Lesions: None T2 Hale of Disease: Mild. Parenchymal Volume Loss: None. Other Significant Findings: None. MR CERVICAL: Counting reference: Craniocervical junction. Anatomic Variants: None. Alignment: Alignment is anatomic. Craniocervical Junction: Craniocervical junction is normal. Cord Findings: Patchy foci of hyperintensity are noted in the cervical cord on the T2, IR and axial gradient echo images compatible with the history of multiple sclerosis. Cord T2 Plaque Hale: Moderate New T2 Lesions: None Interval Cord [...] history of multiple sclerosis. Cord T2 Plaque Hale: Moderate New T2 Lesions: Greater than three [...] and assume there are 5 lumbar-type vertebrae. 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 New Enhancing Lesions: None T2 Hale of Disease: Mild. Parenchymal Volume Loss: None. Other Significant Findings: None. MR CERVICAL: Counting reference: Craniocervical junction. Anatomic Variants: None. Alignment: Alignment is anatomic. Craniocervical Junction: Craniocervical junction is normal. Cord Findings: Patchy foci of hyperintensity are noted in the cervical cord on the T2, IR and axial gradient echo images compatible with the history of multiple sclerosis. Cord T2 Plaque Hale: Moderate New T2 Lesions: None Interval Cord [...] history of multiple sclerosis. Cord T2 Plaque Hale: Moderate New T2 Lesions: Greater than three [...] equal to 2mm). DIVISION OF RADIOLOGY Provider, [facility] - 07/23/2022 * * *Final Report* * * DATE OF EXAM: Jul 23 2022 10:56AM [facility] 0298 - MRI CERVICAL SPINE WO/W [...] Improvement: None. New Enhancing Lesions: None T2 Hale of Disease: Mild. Parenchymal Volume Loss: None. Other Significant Findings: None. MR CERVICAL: Counting reference: Craniocervical junction. Anatomic Variants: None. Alignment: Alignment is anatomic. Craniocervical Junction: Craniocervical junction is normal. Cord Findings: Patchy foci of hyperintensity are noted in the cervical cord on the T2, IR and axial gradient echo images compatible with the history of multiple sclerosis. Cord T2 Plaque Hale: Moderate New T2 Lesions: None Interval Cord [...] history of multiple sclerosis. Cord T2 Plaque Hale: Moderate New T2 Lesions: Greater than three [...] and assume there are 5 lumbar-type vertebrae. 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 New Enhancing Lesions: None T2 Hale of Disease: Mild. Parenchymal Volume Loss: None. Other Significant Findings: None. MR CERVICAL: Counting reference: Craniocervical junction. Anatomic Variants: None. Alignment: Alignment is anatomic. Craniocervical Junction: Craniocervical junction is normal. Cord Findings: Patchy foci of hyperintensity are noted in the cervical cord on the T2, IR and axial gradient echo images compatible with the history of multiple sclerosis. Cord T2 Plaque Hale: Moderate New T2 Lesions: None Interval Cord [...] history of multiple sclerosis. Cord T2 Plaque Hale: Moderate New T2 Lesions: Greater than three [...] equal to 2mm). DIVISION OF RADIOLOGY Provider, [facility] - 07/23/2022 * * *Final Report* * [...] Improvement: None. New Enhancing Lesions: None T2 Hale of Disease: Mild. Parenchymal Volume Loss: None. Other Significant Findings: None. MR CERVICAL: Counting reference: Craniocervical junction. Anatomic Variants: None. Alignment: Alignment is anatomic. Craniocervical Junction: Craniocervical junction is normal. Cord Findings: Patchy foci of hyperintensity are noted in the cervical cord on the T2, IR and axial gradient echo images compatible with the history of multiple sclerosis. Cord T2 Plaque Hale: Moderate New T2 Lesions: None Interval Cord [...] history of multiple sclerosis. Cord T2 Plaque Hale: Moderate New T2 Lesions: Greater than three [...] and assume there are 5 lumbar-type vertebrae. 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: [facility] Transcribe Date/Time: Jul 23 2022 11:16A Dictated by : ANIRUDH NUÑEZ MD This examination was interpreted and the report reviewed and electronically signed by: ANIRUDH NUÑEZ MD on Jul 23 2022 6:11PM EST DIVISION OF RADIOLOGY Radiology Study observation (narrative) [facility] No Panel InformationOrdered By: Ccf Provider on 07-23-2022 [facility] CBC W Auto Differential pane l (Bld)on 04-25-2022 Abs Immature Gran <0.03 <0.10 k/uL [facility] Basophils (Bld) [#/Vol] 0.03 10*3/uL <0.11 k/uL [facility] Basophils/100 WBC (Bld) 0.6 % [facility] Differential cell count method Nom (Bld) Auto [facility] Eosinophils (Bld) [#/Vol] 0.10 10*3/uL <0.46 k/uL [facility] Eosinophils/100 WBC (Bld) 2.0 % [facility] Erythrocyte distribution width (RBC) [Ratio] 13.9 % 11.5 - 15.0 % [facility] Hematocrit (Bld) [Volume fraction] 38.5 % 36.0 - 46.0 % [facility] Hemoglobin (Bld) [Mass/Vol] 12.0 g/dL 11.5 - 15.5 g/dL [facility] Immature Gran % 0.2 % [facility] Lymphocytes (Bld) [#/Vol] 1.54 10*3/uL 1.00 - 4.00 k/uL [facility] Lymphocytes/100 WBC (Bld) 30.2 % [facility] MCH (RBC) [Entitic mass] 25.4 pg Low 26.0 - 34.0 pg [facility] MCHC (RBC) [Mass/Vol] 31.2 g/dL 30.5 - 36.0 g/dL [facility] MCV (RBC) [Entitic vol] 81.4 fL 80.0 - 100.0 fL [facility] Monocytes (Bld) [#/Vol] 0.66 10*3/uL <0.87 k/uL [facility] Monocytes/100 WBC (Bld) 12.9 % [facility] Neutrophils (Bld) [#/Vol] 2.76 10*3/uL 1.45 - 7.50 k/uL [facility] Neutrophils/100 WBC (Bld) 54.1 % [facility] Nucleated RBC (Bld) [#/Vol] 10*3/uL <0.01 k/uL [facility] Nucleated RBC/100 WBC (Bld) [Ratio] 0.0 /100 WBC [facility] Platelet mean volume (Bld) [Entitic vol] 13.5 fL High 9.0 - 12.7 fL [facility] Platelets (Bld) [#/Vol] 168 10*3/uL 150 - 400 k/uL [facility] RBC (Bld) [#/Vol] 4.73 10*6/uL 3.90 - 5.2 0 m/uL [facility] WBC (Bld) [#/Vol] 5.10 10*3/uL 3.70 - 11. 00 k/uL [facility] URINALYSIS, REFLEX MICROSCOP ICon 04-25-2022 Bilirubin Ql (U) Negative Negative [facility] Clarity (Unsp spec) Clear Clear [facility] Color (U) Light Yellow Yellow [facility] Glucose Test strip (U) [Mass/Vol] Negative Negative [facility] Hemoglobin Ql (U) Negative Negative [facility] Ketones Ql (U) Negative Negative [facility] Leukocyte esterase Test strip Ql (U) Negative Negative [facility] Nitrite Ql (U) Negative Negative [facility] pH (U) 6.0 [pH] 5.0 - 8.0 [facility] Protein (U) [Mass/Vol] Negative Negative [facility] Specific gravity (U) [Rel density] 1.021 1.005 - 1.030 [facility] Urobilinogen Ql (U) Negative Negative [facility] CNPNon 11-13-2021 CNPN Telephone (NEADFV) ----- CAROL ANN MARTINEZ ([id number]) 1985 F Date Time Provider Department 11/13/21 [...] (FLONASE) 50 mcg/actuation nasal spray Use 1 Transfer in each nostril once daily. - MAGNESIUM ORAL Take 1 tablet by mouth twice daily. - Qixjoslp-Lt-Xbg-Fe-FA ( VITAMIN) tab Take 1 tablet by [...] Encounter Status:Closed by AUDIE GABRIEL on 11/13/21 [facility] Christiano 07-24-2021 PAIGE Telephone (NEADFV) ----- CAROL ANN MARTINEZ ([id number]) 1985 F Date Time Provider Department 07/24/21 NIDIA GARCIA During your visit today, we recorded the following information about you: Hanna [place] 07/24/2021 12:34 PM Signed Patient called stating she is scheduled for an Ocrevus infusion on August 15, but will be out of state in [place]. She would like to have the infusion done there at [facility]. Also,she has new insurance as of May and will need to get the Ocrevus approved through her new insurance ([employer]- ). For questions call patient at [phone] Alexandra Alexander [facility] 07/24/2021 1:21 PM Signed Patient called back with a phone number of [phone] for [facility]. The phone # her [employer] is [phone]. Audie Gabriel RN 07/24/2021 1:51 PM Signed Patient's infusion rescheduled. Allergies As of Date: 07/24/2021 Noted Allergy Reaction GLUTEN 11/15/2019 14 - Other: See Comments Comments: chest pain, rashes, constipation LECITHIN 03/19/2019 14 - Other: See Comments 16 - Unknown Comments: More constipated More constipated SOY 11/15/2019 5 - Intolerance Date Reviewed: 04/19/2021 Reviewed by: Daiyl Millard Ma - Fully Assessed Reason for [...] (FLONASE) 50 mcg/actuation nasal spray Use 1 Transfer in each nostril once daily. - MAGNESIUM ORAL Take 1 tablet by mouth twice daily. - Vtwcpvwk-Sg-Yqx-Fe-FA ( VITAMIN) tab Take 1 tablet by [...] Status:Closed by AUDIE GABRIEL on 07/24/21 Normal [facility] Telephone Encounteron 2020 Painting Instructor Authentication Interface Message Text Patient was identified by name and date of . Patient given message, patient denied additional questions. ----- Message from Sofy Pandya MD sent at 03/22/2021 12:34 PM EDT ----- Please notify neg HPV with ascus pap, OK to f/u in [address] Sofy Pandya Normal [facility] [employer] [facility] Telephone Encounteron 2020 Painting Instructor Authentication Interface Message Text ----- Message from Sofy Pandya MD sent at 03/08/2021 2:28 PM EDT ----- Please notify ok Normal [facility] [employer] [facility] GC/CHLAMYDIA/TRICHOMONAS AMP LIFICATIONon 03-07-2021 GC/CHLAMYDIA/TRICHOMO BERTIN AMPLIFICATION CHLAMYDIA AMPLIFICATION: Negative GC AMPLIFICATION: Negative TRICHOMONAS AMPLIFICATION: Negative Normal Negative [facility] Comment on above: Order Comment: This test is performed using an automated nucleic acid amplification assay ([employer] Performed By: #### G CT #### [facility] Pathology [address] [place] [address] Dr [place], [place] [address] HEPATITIS C ANTIBODYon 03-07 HCV Non-Reactive Normal Nonreactive [facility] Comment on above: Performed By: #### H CV #### [facility] [address] [place] [address], HIV1 HIV2 AGAB SCRNon 2020 HIV AG-AB SCREEN Non-Reactive Normal Non-Reactive [facility] Comment on above: Order Comment: HIV Information: ???[place] Rev. code 3701.243(E): This information has been [...] hiv2 agab scrn #### [facility] [address] [place] [address], HUMAN PAPILLOMA VIRUSon 02-09 HPV HIGH RISK Negative Normal Negative [facility] Comment on above: Order Comment: This test is performed using an automated nucleic acid amplification assay ([employer] [place], [place]). This assay detects RNA of HPV types 16,18,31,33,35,39,45,51,52,56,58,59,66 and 68 in cervical specimens. Result Comment: A ne gative result does not exclude the possibility of low levels of infection or sampling error. 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 No LMP recorded. Periods are regular [...] Intravenous Push route. * Cholecalciferol 1.25 MG (09228 UT) TABS Take 50,000 Units by mouth once weekly. * Abughvfd-Xda-Fn-FA (Mynatal) CAPS Take by mouth. 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 Normal [facility] [employer] [facility] Painting Instructor Authentication Interface Message Text Patient at risk [...] bandage applied. Site appears normal. Normal [facility] [employer] [facility] Filter Paper Leadon 10-03-20 20 Lead <2 Normal <5 [facility] Lead Interpretation Normal [facility] Comment on above: Result Comment: Occu pationally exposed adults lead >40 requires medical followup. This test was developed and its performance characteristics determined by [facility]. It has not been cleared or approved by the U.S. Food and Drug Administration. The FDA has determined that such clearance or approval is not necessary. This test is used for clinical purposes. It should not be regarded as investigational or for research. Type of Puncture Capillary Specimen Normal [facility] Vital Signs Date Time Vital Sign Value Performing Clinician Facility 10-04-2024 14:06-0500 Body mass index (BMI) [Ratio] 22.28 kg/m2 Jahaira GRIGGS Work Phone: [facility] 10-04-2024 14:06-0500 Body weight 63.56 kg Jahaira GRIGGS Work Phone: [facility] 10-04-2024 14:06-0500 Diastolic blood pressure 60 mm[Hg] Jahaira GRIGGS Work Phone: [facility] 10-04-2024 14:06-0500 Systolic blood pressure 100 mm[Hg] Jahaira GRIGGS Work Phone: [facility] 09-27-2024 15:20-0500 Body mass index (BMI) [Ratio] 22.44 kg/m2 Clarke Hu DO Work Phone: [facility] 09-27-2024 15:20-0500 Body weight 64.01 kg Clarke Mayte DO Work Phone: [facility] 09-27-2024 15:20-0500 Diastolic blood pressure 68 mm[Hg] Clarke Mayte DO Work Phone: [facility] 09-27-2024 15:20-0500 Systolic blood pressure 108 mm[Hg] Clarke Mayte DO Work Phone: [facility] 09-22-2024 08:42-0500 Body height 167.6 cm Estella Crockerpp [facility] 09-22-2024 08:42-0500 Body mass index (BMI) [Ratio] 20.98 kg/m2 Estella Dutton [facility] 09-22-2024 08:42-0500 Body weight 58.97 [facility] 09-21-2024 14:37-0500 Body mass index (BMI) [Ratio] 21.01 kg/m2 Clarke Mayte DO Work Phone: [facility] 09-21-2024 14:37-0500 Body weight 59.93 kg Clarke Mayte DO Work Phone: [facility] 09-21-2024 14:37-0500 Diastolic blood pressure 68 mm[Hg] Clarke Mayte DO Work Phone: [facility] 09-21-2024 14:37-0500 Systolic blood pressure 118 mm[Hg] Clarke Mayte DO Work Phone: [facility] 09-07-2024 14:28-0400 Body mass index (BMI) [Ratio] 22.02 kg/m2 Jahaira GRIGGS Work Phone: [facility] 09-07-2024 14:28-0400 Body weight 62.82 kg Jahaira GRIGGS Work Phone: [facility] 09-07-2024 14:28-0400 Diastolic blood pressure 72 mm[Hg] Jahaira GRIGGS Work Phone: [facility] 09-07-2024 14:28-0400 Systolic blood pressure 112 mm[Hg] Jahaira Huertaey PA Work Phone: [facility] 08-26-2024 19:22-0400 Body mass index (BMI) [Ratio] 22.26 kg/m2 Aleyda Hemmer PA Work Phone: [facility] 08-26-2024 19:22-0400 Body temperature 98.01 [degF] Aleyda Hemmer PA Work Phone: [facility] 08-26-2024 19:22-0400 Body weight 63.5 kg Aleyda Hemmer PA Work Phone: [facility] 08-26-2024 19:22-0400 Diastolic blood pressure 70 mm[Hg] Aleyda Hemmer PA Work Phone: [facility] 08-26-2024 19:22-0400 Heart rate 102 /min Aleyda Hemmer PA Work Phone: [facility] 08-26-2024 19:22-0400 SaO2% (BldA) [Mass fraction] 98 % Aleyda Hemmer PA Work Phone: [facility] 08-26-2024 19:22-0400 Systolic blood pressure 122 mm[Hg] Aleyda Hemmer PA Work Phone: [facility] 08-24-2024 10:30-0400 Body mass index (BMI) [Ratio] 21.96 kg/m2 Jahaira Byers PA Work Phone: [facility] 08-24-2024 10:30-0400 Body weight 62.65 kg Jahaira Modesta PA Work Phone: [facility] 08-24-2024 10:30-0400 Diastolic blood pressure 70 mm[Hg] Jahaira Byers PA Work Phone: [facility] 08-24-2024 10:30-0400 Systolic blood pressure 120 mm[Hg] Jahaira Columbus PA Work Phone: [facility] 08-17-2024 14:43-0400 Body height 168.9 cm Janice Escobar MD Work Phone: [facility] 08-17-2024 14:43-0400 Body mass index (BMI) [Ratio] 21.94 kg/m2 Janice Escobar MD Work Phone: [facility] 08-17-2024 14:43-0400 Body weight 62.6 kg Janice Escobar MD Work Phone: [facility] 08-17-2024 14:43-0400 Diastolic blood pressure 71 mm[Hg] Janice Escobar MD Work Phone: [facility] 08-17-2024 14:43-0400 Heart rate 93 /min Janice Escobar MD Work Phone: [facility] 08-17-2024 14:43-0400 Systolic blood pressure 105 mm[Hg] Janice Escobar MD Work Phone: [facility] 08-10-2024 10:06-0400 Body mass index (BMI) [Ratio] 21.91 kg/m2 Clarke Mayte DO Work Phone: [facility] 08-10-2024 10:06-0400 Body weight 62.51 kg Clarke Mayte DO Work Phone: [facility] 08-10-2024 10:06-0400 Diastolic blood pressure 70 mm[Hg] Clarke Mayte DO Work Phone: [facility] 08-10-2024 10:06-0400 Systolic blood pressure 104 mm[Hg] Clarke Mayte DO Work Phone: [facility] 07-19-2024 12:03-0400 Body height 167.[address] MD Work Phone: [facility] 07-19-2024 12:03-0400 Body mass index (BMI) [Ratio] 21.88 kg/m2 Janice Lane MD Work Phone: [facility] 07-19-2024 12:03-0400 Body temperature 97.59 [degF] Janice Lane MD Work Phone: [facility] 07-19-2024 12:03-0400 Body weight 61.[address] MD Work Phone: [facility] 07-19-2024 12:03-0400 Diastolic blood pressure 67 mm[Hg] Janice Lane MD Work Phone: [facility] 07-19-2024 12:03-0400 Heart rate 86 /min Janice Lane MD Work Phone: [facility] 07-19-2024 12:03-0400 SaO2% (BldA) [Mass fraction] 99 % Janice Lane MD Work Phone: [facility] 07-19-2024 12:03-0400 Systolic blood pressure 107 mm[Hg] Janice Lane MD Work Phone: [facility] 03-04-2024 13:00-0400 Body height 168.[address] MD Work Phone: [facility] 03-04-2024 13:00-0400 Body mass index (BMI) [Ratio] 19.52 kg/m2 Janice Lane MD Work Phone: [facility] 03-04-2024 13:00-0400 Body temperature 98.1 [degF] Janice Lane MD Work Phone: [facility] 03-04-2024 13:00-0400 Body weight 55.[address] MD Work Phone: [facility] 03-04-2024 13:00-0400 Diastolic blood pressure 66 mm[Hg] Janice Lane MD Work Phone: [facility] 03-04-2024 13:00-0400 Heart rate 95 /min Janice Laen MD Work Phone: [facility] 03-04-2024 13:00-0400 SaO2% (BldA) [Mass fraction] 100 % Janice Lane MD Work Phone: [facility] 03-04-2024 13:00-0400 Systolic blood pressure 101 mm[Hg] Janice Lane MD Work Phone: [facility] 12-25-2023 10:54-0500 Body weight 56.8 kg Tor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 2 - 13+ 2-dose series) [facility] Start: 1990 COVID-19 VACCINE (#1) COVID-19 VACCI NE (#1) [facility] Start: 1990 COVID-19 VACCINE (1) COVID-19 VACCIN E (1) [facility] Start: 1986 MMR Vaccines (1 of 1 - Standard series) MMR Vaccines (1 of 1 - Standard series) [facility] Start: 02-01-1986 COVID-19 VACCINE (#1) COVID-19 VACCI NE (#1) [facility] Start: 1985 Annual wellness visit Medicare Initial Physical (IPPE) [facility] Start: 1985 HEPATITIS B (1 of 3 - 3-dose series) HEPATITIS B (1 of 3 - 3-dose series) [facility] Start: 1985 Lipid panel Lipid Panel [facility] Start: 1985 Medicare Annual Well ness Visit Medicare Annual Wellness Visit (AWV) [facility] 25-hydroxyvitamin D3 [Mass/volume] in Serum or Plasma VITAMIN D 25 HYDROXY Lab Routine Vitamin D deficiency 04/25/2022 11:12 AM EDT [facility] Work Phone: Bacteria identified in Genital specimen by Aerobe culture [facility] Work Phone: Comprehensive metabo lic 2000 panel - Serum or Plasma COMP METABOLIC PANEL Lab Routine Multiple sclerosis ([facility]) 04/25/2022 11:12 AM EDT [facility] Work Phone: ECG COMPLETE ECG COMPLETE ECG Routine Vasovagal syncope Ordered: 07/19/2024 [facility] Work Phone: Comment on above: Ordered: 07/19/2024 End: 04-25-2023 EPIL EEG ROUTINE EPIL EEG ROUTINE NEUROLOGY Routine Multiple sclerosis ([facility]) 1 Occurrences starting 04/25/2022 until 04/25/2023 [facility] Work Phone: Comment on above: 1 Occurrences starti ng 04/25/2022 until 04/25/2023 Glucose measurement estimated from glycated hemoglobin [facility] End: 06-08-2025 HOME SLEEP APNEA TEST (HSAT) HOME SLEEP APNEA TEST (HSAT) Procedures Routine Snoring Chronic insomnia Malaise and fatigue At risk for obstructive sleep apnea 1 Occurrences starting 06/08/2024 until 06/08/2025 [facility] Work Phone: Comment on above: 1 Occurrences starti ng 06/08/2024 until 06/08/2025 IgG [Mass/volume] in Serum or Plasma IGG Lab Routine Multiple sclerosis ([facility]) 04/25/2022 11:12 AM EDT [facility] Work Phone: IgM [Mass/volume] in Serum or Plasma IGM Lab Routine Multiple sclerosis ([facility]) 04/25/2022 11:12 AM [facility] Work Phone: End: 01-23-2025 MR Thoracic spine WO and W contrast IV MRI THORACIC SPINE WO/W IVCON Radiology Routine Multiple sclerosis ([facility]) 1 Occurrences starting 12/25/2023 until 01/23/2025 [facility] Work Phone: Comment on above: 1 Occurrences starti ng 12/25/2023 until 01/23/2025 OT PLAN OF CARE CERTIFICATION OT PLAN OF CARE CERTIFICATION Procedures Routine Multiple sclerosis ([facility]) Abnormal antibody titer Neurogenic bladder Lack of coordination Ordered: 05/30/2022 [facility] Work Phone: Comment on above: Ordered: 05/30/2022 Patient Education [facility] Work Phone: Patient referral [facility] Work Phone: PT PLAN OF CARE CERTIFICATION PT PLAN OF CARE CERTIFICATION Procedures Routine Abnormality of gait Multiple sclerosis (HCC) Ordered: 07/22/2022 [facility] Work Phone: Comment on above: Ordered: 07/22/2022 SPEECH PLAN OF CARE CERTIFICATION SPEECH PLAN OF CARE CERTIFICATION Procedures Routine Multiple sclerosis (HCC) Cognitive communication deficit Ordered: 05/30/2022 [facility] Work Phone: Comment on above: Ordered: 05/30/2022 SPEECH PLAN OF CARE CERTIFICATION SPEECH PLAN OF CARE CERTIFICATION Procedures Routine Cognitive communication deficit Ordered: 07/22/2022 [facility] Work Phone: Comment on above: Ordered: 07/22/2022 US for US OB follow UP transabdominal approach Imaging Routine Encounter for supervision of normal , unspecified, unspecified trimester 09/17/2024 3:04 PM [facility] Service Area Work Phone: VARICELLA ZOSTER IGG VARICELLA Z YARELIS IGG Lab Routine Multiple sclerosis (HCC) 04/25/2022 11:12 AM EDT [facility] Work Phone: End: 04-03-2025 XR Cervical spine AP and Lateral and oblique XR CERV OTHER 4V AP/LAT/OBL Radiology Routine Neck pain 1 Occurrences starting 03/04/2024 until 04/03/2025 [facility] Work Phone: Comment on above: 1 Occurrences starti ng 03/04/2024 until 04/03/2025 XR Cervical spine AP and Lateral and oblique XR CERV OTHER 4V AP/LAT/OBL Radiology Routine Neck pain 03/04/2024 2:13 PM EDT [facility] End: 04-03-2025 XR Lumbar spine 3 Views XR LUMBAR GENERAL 3V AP/LAT/L5-S1 Radiology Routine Chronic midline low back pain without sciatica 1 Occurrences starting 03/04/2024 until 04/03/2025 [facility] Comment on above: 1 Occurrences starti ng 03/04/2024 until 04/03/2025 XR Lumbar spine 3 Views XR LUMBA R GENERAL 3V AP/LAT/L5-S1 Radiology Routine Chronic midline low back pain without sciatica 03/04/2024 2:12 PM EDT [facility] WG-Usqjigwwrz-E roe amaya [address] Work Phone: [facility] NEGATED: Highlighted row has been ruled out! Planned Goals not documented ZA-Moyphhptdv-Tajesw ke [address] Work Phone: Immunizations Immunization Date Immunization Notes Care Provider Fa ilene 11-20-2023 influenza, injectabl e, quadrivalent, preservative free [facility] 11-20-2023 influenza virus vaccine, unspecified formulation Kenzie [facility] 01-15-2022 tetanus toxoid, redu minor diphtheria toxoid, and acellular pertussis vaccine, adsorbed Nidia Garcia MD Work Phone: [facility] Payers Date Payer Category Payer Self-pay [id number] 2023 Medicare (Managed Care) 1.2. [id number] 2023 Private Health Insurance [id number] 2022 Unknown [id number] 2021 Medicare [employer] O SNP [id number] 2021-Present [phone] [address] [place] [address] O [id number] 2021 Medicare [id number] 2020 Private Health Insurance [id number] 2020 Medicaid MEDICAID [facility] MEDICAID [id number] 2020-Present [phone] [address] [place] [address] Medicaid [id number] 2020 Medicaid [id number]. [id number] 2020 Medicaid [id number] 1985 Unknown [id number] 2.16.840.1.527860.3.579.2.7 1985 Unknown [id number] 2.16840.1.027762.3.579.2.1 [facility] 1985 Unknown [id number] 2.16840.1.938419.3.579.2.1 [facility] 1985 Unknown [id number] 2.16.840.1.081837.3.579.2.1 [facility] 1985 Unknown [id number] 2.16.840.1.747312.3.579.2.1 [facility] 1985 Unknown [id number] 2.16.840.1.055750.3.579.2.1 [facility] 1985 Unknown [id number] 2.16.840.1.517121.3.579.2.1 245 1985 Unknown [id number] 2.16.840.1.932847.3.579.2.1 245 1985 Unknown [id number] 2.16.840.1.823772.3.579.2.1 259 1985 Unknown [id number] 2.16.840.1.174883.3.579.2.1 259 1985 Unknown [id number] 2.16.840.1.042906.3.579.2.1 259 1985 Unknown [id number] 2.16.840.1.738041.3.579.2.1 259 1985 Unknown [id number] 2.16.840.1.776051.3.579.2.1 259 1985 Unknown [id number] 2.16.840.1.836691.3.579.2.1 259 1985 Unknown [id number] 2.16.840.1.266687.3.579.2.1 259 1985 Unknown [id number] 2.16.840.1.710785.3.579.2.1 259 1985 Unknown [id number] 2.16.840.1.457581.3.579.2.1 259 1985 Unknown [id number] 2.16.840.1.965253.3.579.2.1 259 1985 Unknown [id number] 2.16.840.1.900999.3.579.2.1 259 1985 Unknown [id number] 2.16.840.1.890913.3.579.2.1 259 1985 Unknown [id number] 2.16.840.1.852490.3.579.2.1 259 1985 Unknown [id number] 2.16.840.1.674782.3.579.2.1 259 1985 Unknown [id number] 2.16.840.1.458555.3.579.2.1 259 1985 Unknown [id number] 2.16.840.1.063757.3.579.2.1 259 1985 Unknown [id number] 2.16.840.1.506494.3.579.2.1 259 1985 Unknown [id number] 2.16.840.1.857573.3.579.2.1 259 1985 Unknown [id number] 2.16.840.1.578333.3.579.2.1 259 1985 Unknown [id number] 2.16.840.1.051979.3.579.2.1 259 1985 Unknown [id number] 2.16.840.1.514638.3.579.2.1 259 1985 Unknown [id number] 2.16.840.1.080597.3.579.2.1 259 Medicaid [id number] Medicare [id number] Unknown [id number] 2.16.840.1.566259.3.579.2.5 31 Unknown [id number] 2.16.840.1.230973.3.579.2.5 31 Unknown [id number] 2.16.840.1.662197.3.579.2.5 31 Unknown [id number] 2.16.840.1.549042.3.579.2.5 31 Social History Date [facility] Start: 1985 Sex Assigned At Female [facility] Start: 11-15-2019 End: 06-15-2024 Tobacco smoking status NHIS Never smoked tobacco [facility] Start: 11-15-2019 End: 06-15-2024 Tobacco use and exposure Smokeless tobacco non-user [facility] Start: 01-15-2022 End: 08-30-2024 Alcohol intake Ex-drinker (finding) [facility] Start: 11-15-2019 History SDOH Alcohol Comment occas [facility] Start: 03-16-2022 End: 09-17-2024 Exposure to SARS-CoV-2 (event) Not sure [facility] Start: 04-25-2022 Education 17 [facility] Start: 12-16-2022 History SDOH Alcohol Frequency 1 [facility] Start: 12-16-2022 History SDOH Alcohol Std Drinks 0 [facility] Start: 12-16-2022 History SDOH Social Connections Phone 4 [facility] Start: 12-16-2022 History SDOH Social Connections Membership 2 [facility] Start: 12-16-2022 History SDOH Social Connections Living 7 [facility] Start: 12-16-2022 History SDOH Physica l Activity MPS 3 [facility] Start: 12-16-2022 History SDOH Stress 5 [facility] Start: 12-16-2022 End: 08-26-2024 History of Social function [facility] Start: 12-16-2022 End: 08-26-2024 Social connection and isolation panel [facility] Do you belong to any clubs or organizations such as restorationist groups, unions, [employer] or athletic groups, or school groups? No [facility] Are you now , , , , never or living with a partner? Never [facility] How often to you hav e a drink containing alcohol? Never [facility] How many standard drinks containing alcohol do you have on a typical day? Patient does not drink [facility] How hard is it for y ou to pay for the very basics like food, housing, medical care, and heating Somewhat hard [facility] Do you feel stress - tense, restless, nervous, or anxious, or unable to sleep at night because your mind is troubled all the time - these days [OSQ] Very much [facility] (I/We) worried wheth er (my/our) food would run out before (I/we) got money to buy more. Often true [facility] Start: 12-23-2020 Gender identity Identifies as female gender (finding) [facility] Start: 12-23-2020 Sexual orientation Heterosexual (brandin whalen) [facility] History of tobacco use Passive smoker [facility] Start: 12-11-2023 End: 10-04-2024 Alcohol intake Lifetime non-drinker (finding) [facility] Start: 02-04-2024 [facility] NEGATED: Highlighted row - - EY-Wuanzcdnvj-Zqeit vahid 2300 Work Phone: Goals Date Patient Goal Desired Activity /State Personal health goal Personal health goal Personal health goal Functional Status Date Assessment Result Facility NEGATED: Highlighted row Functional performance Functional status health issues are not documented Disease XB-Rilonrslfm-Eayqg vahid 2300 Work Phone: Mental Status Date Assessment Result Facility NEGATED: Highlighted row Cognitive function [Interpretation] Cognitive status health issues are not documented Disease YR-Azjtvdrzeq-Szzmw vahid 0 Work Phone: Clinical Notes 04-17-2021 to 10-04-2024 ANSON Mon - 10/04/2024 1:40 PM Lulú Caballero, MACARIO - 09/27/2024 2:[address] - 09/22/2024 8:40 AM Keiry Portillo LPN - 09/21/2024 2:30 PM ANSON Gutiérrez - 08/24/2024 9:40 AM EDT Note Date & Type Note Facility 10-04-2024 History of Present illness Narrative Reason for [...] mometasone (Elocon) 0.1 % cream Daily RT Hrdxkxjf-Trx-Xk-FA (Jenliva /) 1 MG capsule Take by mouth valACYclovir (VALTREX) 500 mg, Oral, Daily ALLERGIES Allergies Allergen Reactions Gluten Meal Hives, [...] Hypocalcemia Hypoglycemia Low iron MS (multiple sclerosis) ([facility]) Urinary incontinence 2009 HISTORY PAST MEDICAL HISTORY SOCIAL HISTORY Past Medical History: Diagnosis Date Abnormal Pap smear of cervix 2008 Bacterial vaginosis 2019 Hypocalcemia Hypoglycemia Low iron MS (multiple sclerosis) ([facility]) Urinary incontinence 2009 Social History Tobacco [...] ELECTRODE EXCISION 2007 COLONOSCOPY 2007 and 2018 COLPOSCOPY 2007 & 2017 DILATION AND CURETTAGE OF UTERUS 2023 WISDOM TOOTH EXTRACTION REVIEW OF SYSTEMS Review of Systems: Review of Systems All other systems reviewed and are negative. OBJECTIVE Objective: Physical Exam Constitutional: Appearance: Normal [...] reviewed. Vitals: Estimated body mass index is 22.28 kg/m as calculated from the following: Height as of 09/18/23: 5' 6.5 . Weight as of this encounter: 140 lb 1.9 oz. BP: 100/60 Patient's last menstrual period was 02/09/2024. ASSESSMENT & PLAN ICD-10-CM 1. 36 weeks gestation of Z3A.36 POCT urinalysis dipstick manually resulted 2. Third trimester Z34.93 POCT urinalysis dipstick manually resulted Strep B DNA probe, amplification Strep B DNA probe, amplification Return OB: Patient presents today for a routine obstetrics appointment. Patient is currently 36w5d . Patient states she is doing well but has complaints of being tired due to current . Patient has verbalizes frequent movement. labor precautions was discussed/given and patient was instructed to perform kick counts three times a day. Orders Placed This Encounter Procedures Strep B DNA probe, amplification POCT urinalysis dipstick manually resulted Follow Up: Patient is to return to office in 1 week for routine OB appointment. Documented by ANSON Mon on behalf of: ANSON Mon documented in this encounter [facility] 09-27-2024 History of Present illness Narrative Reason for [...] mometasone (Elocon) 0.1 % cream Daily RT Tgetnlru-Caq-Jm-FA (Jenliva /) 1 MG capsule Take by mouth valACYclovir (VALTREX) 500 mg, Oral, Daily ALLERGIES Allergies Allergen Reactions Gluten Meal Hives, [...] Hypocalcemia Hypoglycemia Low iron MS (multiple sclerosis) ([facility]) Urinary incontinence 2009 HISTORY PAST MEDICAL HISTORY SOCIAL HISTORY Past Medical History: Diagnosis Date Abnormal Pap smear of cervix 2008 Bacterial vaginosis 2019 Hypocalcemia Hypoglycemia Low iron MS (multiple sclerosis) (CMS/HCC) Urinary incontinence 2009 Social History Tobacco Use [...] SYSTEMS Review of Systems: Review of Systems All other systems reviewed and are negative. OBJECTIVE Objective: Physical Exam Constitutional: Appearance: Normal appearance. She is well-developed. Genitourinary: Vulva normal. Cardiovascular: Rate and Rhythm: Normal rate [...] nursing note reviewed. Exam conducted with a brewing technician present. Vitals: Estimated body mass index is 22.44 kg/m as calculated from the following: Height as of 09/18/23: 5' 6.5 . Weight as of this encounter: 141 lb 1.9 oz. BP: 108/68 Patient's last menstrual period was 02/09/2024. ASSESSMENT & PLAN ICD-10-CM 1. with normal glucose tolerance test (GTT) Z34.90 2. Third trimester Z34.93 POCT urinalysis dipstick manually resulted 3. 35 weeks gestation of Z3A.35 POCT urinalysis dipstick manually resulted Patient presents today for a routine obstetrics appointment. Patient is currently 35w5d with a Estimated Date of Delivery: 10/27/24. Patient to RTC in 1 week. Patient is currently 2cm and 70% effaced. Documented by Lisa Caballero LPN on behalf of: Clarke Hu DO documented in this encounter [facility] 09-22-2024 Note HNO ID: [id number] Author: ESTELLA DUTTON RD Service: ? Author Type: Registered Dietitian Type: Progress Notes Filed: 10/01/2024 16:42 Note Text: [facility] Nutrition Therapy: Virtual Consult - Initial Assessment I have communicated my name and active licensure. The patient?s identity and physical location were verified at the time of this visit. Either the patient or their legal physician relations representative has been informed of the risks [...] Increase fluid intake as able Nutrition Monitoring AND Evaluation: weight, PO intake Need for Follow up: PRN Patient presents for an initial nutrition consult with H of multiple sclerosis. Pt has been having [...] 9.3 oz) Body mass index is 20.98 kg/m?. Resting Metabolic Rate: 1309 Malnutrition Screening Significant [...] Ann Martinez DATE: 09/22/2024 TIME: 8:41 AM [facility] 09-22-2024 History of Present illness Narrative [facility] Nutrition Therapy: Virtual Consult - Initial Assessment I have communicated my name and active licensure. The patient s identity and physical location were verified at the time of this visit. Either the patient or their legal physician relations representative has been informed of the risks [...] Initial Assess/15 min 2 units SIGNATURE: Estella uDtton RD PATIENT NAME: Carol Ann Martinez DATE: 09/22/2024 TIME: 8:41 AM documented in this encounter [facility] 09-21-2024 History of Present illness Narrative Reason for [...] mometasone (Elocon) 0.1 % cream Daily RT Irscebzr-Eaz-Pz-FA (Jenliva /) 1 MG capsule Take by mouth Vit-Fe Fumarate-FA (M-Blake Plus) 27-1 MG tablet 1 tablet, Oral, [...] Hypocalcemia Hypoglycemia Low iron MS (multiple sclerosis) ([facility]) Urinary incontinence 2009 HISTORY PAST MEDICAL HISTORY SOCIAL HISTORY Past Medical History: Diagnosis Date Abnormal Pap smear of cervix 2007 Bacterial vaginosis 2019 Hypocalcemia Hypoglycemia Low iron MS (multiple sclerosis) ([facility]) Urinary incontinence 2009 Social History Tobacco Use Smoking status: Never Smokeless tobacco: Never Substance Use Topics Alcohol use: Never Drug use: Never FAMILY HISTORY Family History Problem Relation Name Age of Onset Prostate cancer Father Multiple sclerosis Sister Diabetes Paternal Grandmother Kaitlin Martinez Alzheimer's disease Paternal Grandmother Kaitlni Martinez Prostate cancer Paternal Grandfather SURGICAL HISTORY [...] nursing note reviewed. Exam conducted with a brewing technician present. Vitals: Estimated body mass index is 21.01 kg/m as calculated from the following: Height as of 09/18/23: 5' 6.5 . Weight as of this encounter: 132 lb 1.9 oz. BP: 118/68 Patient's last menstrual period was 02/09/2024. ASSESSMENT & PLAN ICD-10-CM 1. 34 weeks gestation of Z3A.34 POCT urinalysis dipstick manually resulted 2. Third trimester Z34.93 POCT urinalysis dipstick manually resulted Return OB: Patient presents today for a routine obstetrics appointment. Patient is currently 34w6d . Patient states she is doing well but has complaints of being tired due to current . Patient has verbalizes frequent movement. labor precautions was discussed/given and patient was instructed to perform kick counts three times a day. Pt cervical length at 2cm pt to start NST/BPP biweekly until delivery Orders Placed This Encounter Procedures POCT urinalysis dipstick manually resulted Follow Up: Patient is to return to office in 1 week for routine OB appointment. Documented by Aleyda Portillo LPN on behalf of: Clarke Hu DO documented in this encounter [facility] 09-21-2024 History of Present illness Narrative Program_ID:[id number] Access Code: [email or web address] URL: [email or web address] Date: 09-21-2024 Prepared By: Estrella Sorto Program [...] therapeutic exercises was facilitated with verbal cuing. [facility] Management: 1: discussed importance of focus through [...] Sorto PT, DPT documented in this encounter [facility] 09-21-2024 Note HNO ID: [id number] Author: ESTRELLA SORTO PT, DPT Service: ? [...] therapeutic exercises was facilitated with verbal cuing. [facility] Management: 1: discussed importance of focus through [...] and agreed upon. Estrella Sorto, PT, DPT [facility] 09-20-2024 Note HNO ID: [id number] Author: IBAN LAZO, PhD Service: ? Author Type: Psychologist Type: Progress Notes Filed: 09/20/2024 14:26 Note Text: Behavioral Sleep Medicine Follow up Iban Lazo, PhD I have communicated my name and active licensure. The patient's identity and physical location were verified at the time of this visit. Either the patient or their legal physician relations representative has been informed of the risks and benefits of -- and alternatives to -- treatment through a remote evaluation and consents to proceed with the evaluation remotely. Contact Method: Zoom Patient Confirmed Address: [address] [facility] [address] Patient Confirmed Telephone #: [phone] Time: 40 minutes Individual Psychotherapy Session # [...] [facility] 3-6 [facility] We discussed that we [...] 05/23/2024 07/08/2024 PHQ-9 Score 19 12 12 AHBILASH: ABHILASH-7 Total Score: 10 [10-14 = Moderate Anxiety] 03/19/2024 04/13/2024 09/02/2024 ABHILASH - 7 SCORES Score 13 13 10 DIAGNOSIS: Chronic Insomnia Adjustment disorder with mixed anxiety and depressed mood Trauma and stressor-related disorder RLS Multiple sclerosis PROGRESS TO DATE: Business Broker Progress: Condition at intake Short Term Condition: [...] and post . Iban Lazo, PhD, Psychologist ([place] license [id number]) [facility] 09-20-2024 History of Present illness Narrative [...] been reviewed prior to dispensing the medication. Trucker Assessment Patient confirmed: Yes Med/dose confirmed: Yes Supplies needed: No supplies needed Missed doses: No Estimated days supply on hand: 1 Delivery method: FedEx Signature required: No Delivery address: [address] [place] [address] 2 Delivery date: 09/22/24 Questions or concerns [...] (FLONASE) 50 mcg/actuation nasal spray Use 1 Transfer in each nostril once daily. No current facility-administered medications on file prior to visit. [facility] RX SPECIALTY CLINICAL ASSESSMENT - NEUROLOGY [...] without relapses Previous disease therapies: - Betaseron [id number] - Copaxone [id number] - Tysabri 2009-Summer 2019 (stopped due to [...] Kenzie Mccall RPh documented in this encounter [facility] 09-20-2024 Note HNO ID: [id number] Author: KENZIE MCCALL RPh Service: ? Author [...] been reviewed prior to dispensing the medication. Trucker Assessment Patient confirmed: Yes Med/dose confirmed: Yes Supplies needed: No supplies needed Missed doses: No Estimated days supply on hand: 1 Delivery method: FedEx Signature required: No Delivery address: [address] [place] [address] [address] Delivery date: 09/22/24 Questions or [...] (FLONASE) 50 mcg/actuation nasal spray Use 1 Transfer in each nostril once daily. No current facility-administered medications on file prior to visit. [facility] RX SPECIALTY CLINICAL ASSESSMENT - NEUROLOGY [...] without relapses Previous disease therapies: - Betaseron [id number] - Copaxone - Tysabri 2009-Summer 2019 (stopped [...] Treatment Duration: No information available Kenzie Mccall [facility] 09-03-2024 History of Present illness Narrative Program_ID:[id number] Access Code: [email or web address] URL: [email or web address] Date: 09-03-2024 Prepared By: Estrella Sorto Program [...] Goals for Episode of Care: established 09/03/24 [place] in home exercise program. Patient will decrease [...] Planned: 4 Planned Treatment Interventions: Therapeutic exercise (59279), Neuromuscular re-education (73606), Manual therapy (54181), Therapeutic activities (96747), Self-chcf management (30518), Gait Training (56595), Patient/Family/Caregiver Education PLAN FOR NEXT VISIT: Continue [...] Demonstration TREATMENT: PT Treatment Interventions: Therapeutic Exercise, [facility] Management Evaluation Evaluation Therapeutic Exercise: 1: *seated [...] use of heat and parameters for each. [facility] Management: 1: educated through diagnosis, prognosis, plan [...] was reviewed and agreed upon. Estrella Sorto PT DPLibby documented in this encounter [facility] 09-03-2024 Note HNO ID: [id number] Author: ESTRELLA SORTO PT, DPT Service: ? [...] Goals for Episode of Care: established 09/03/24 [place] in home exercise program. Patient will decrease [...] Planned: 4 Planned Treatment Interventions: Therapeutic exercise (41635), Neuromuscular re-education (43034), Manual therapy (88343), Therapeutic activities (22377), Self-chcf management (92414), Gait Training (08933), Patient/Family/Caregiver Education PLAN FOR NEXT VISIT: Continue [...] R Hip Pa (more content not included)... [facility] 09-02-2024 Telephone encounter Note Duplicate message Closing this encounter [facility] 09-02-2024 Miscellaneous Notes Duplicate message Closing this encounter documented in this encounter [facility] 08-30-2024 Note HNO ID: [id number] Author: ART SWENSON OD Service: ? Author Type: HOUSE SUPERINTENDENT Type: Progress Notes Filed: 08/30/2024 16:40 Note [...] her +++ August 30, 2024 4:35 PM [facility] 08-30-2024 History of Present illness Narrative [...] 2024 4:35 PM documented in this encounter [facility] 08-26-2024 History of Present illness [...] the morning. cholecalciferol (Vitamin D3) 1.25 MG (48374 UT) tablet Take 1.25 mg by mouth once a week clotrimazole-betamethasone (Lotrisone) cream Apply 1 application topically Daily Apply to affected area daily for 7 days 45 g 0 ergocalciferol (Vitamin D-2) 1.25 MG (56927 UT) capsule Take 50,000 Units by mouth [...] (Elocon) 0.1 % cream Apply topically Daily Ikqxrkpi-Ijt-Ru-FA (Jenliva /) 1 MG capsule Take by [...] Hypocalcemia Hypoglycemia Low iron MS (multiple sclerosis) ([facility]) Urinary incontinence 2008 Past Surgical History: Procedure Laterality Date CERVICAL BIOPSY W/ LOOP ELECTRODE EXCISION 2007 COLONOSCOPY 2007 and 2017 COLPOSCOPY 2007 & 2018 DILATION AND CURETTAGE OF UTERUS 2023 WISDOM [...] respiratory tract infection, unspecified type See above. Aleyda Burgess MSRAEANN, PAJoseC documented in this encounter [facility] 08-24-2024 History of Present illness Narrative Reason [...] mometasone (Elocon) 0.1 % cream Daily RT Owrqcouv-Yla-Gh-FA (Jenliva /) 1 MG capsule Take by [...] Hypocalcemia Hypoglycemia Low iron MS (multiple sclerosis) ([facility]) Urinary incontinence 2009 HISTORY PAST MEDICAL HISTORY SOCIAL HISTORY Past Medical History: Diagnosis Date Abnormal Pap smear of cervix 2008 Bacterial vaginosis 2019 Hypocalcemia Hypoglycemia Low iron MS (multiple sclerosis) ([facility]) Urinary incontinence 2009 Social History Tobacco [...] nursing note reviewed. Exam conducted with a brewing technician present. Vitals: Estimated body mass index is [...] dipstick manually resulted 3. MS (multiple sclerosis) ([facility]) G35 methylPREDNISolone (Medrol Dospak) 4 MG [...] of: ANSON Mon documented in this encounter [facility] 08-18-2024 Note HNO ID: [id number] Author: CLARICE ZEPEDA HUC Service: ? Author Type: Health Egg Candler Type: Progress Notes Filed: 08/18/2024 09:03 Note Text: Mialed OTC-Nutritional Suppl order to pt CAROL ANN MARTINEZ [address] [address] [facility] [address] [facility] 08-18-2024 History of Present illness Narrative Mialed OTC-Nutritional Suppl order to pt CAROL ANN MARTINEZ [address] [facility] [address] documented in this encounter [facility] 08-17-2024 History of Present illness [...] MD Maternal Medicine documented in this encounter [facility] Work Phone: 08-17-2024 Telephone encounter Note Prescription signed and had to be printed, will send out Letter written and placed in chart Tor Hernandez APRN.CNP August 17, 2024 10:26 AM [facility] 08-17-2024 Miscellaneous Notes Prescription signed and had to be printed, will send out Letter written and placed in chart Tor Hernandez APRN.CNP August 17, 2024 10:26 AM documented in this encounter [facility] 08-16-2024 History of Present illness [...] been reviewed prior to dispensing the medication. Trucker Assessment Patient confirmed: Yes Med/dose confirmed: Yes Supplies needed: No supplies needed Missed doses: No Estimated days supply on hand: (maybe 2 weeks, not sure) Next cycle/dose due: 08/16/24 Copay amount: 0 Payment confirmed: Yes Delivery method: FedEx Signature required: Waived on patient request Delivery address: [address] [place] [address] Delivery date: 08/31/24 Questions or concerns for [...] (FLONASE) 50 mcg/actuation nasal spray Use 1 Transfer in each nostril once daily. No current facility-administered medications on file prior to visit. [facility] RX SPECIALTY CLINICAL ASSESSMENT - NEUROLOGY [...] inject where skin looks healthy. Training video ([employer] no longer supplies nurses for training, or injection devices) PFS supplied and training video https://www.copaxone.com/injectio n-assistance/jfl-mf-dovbpn DDI none pertinent Vaccines reviewed Est. Tx Plan Start Date: No information available Estimated Start Date Info: No information available Est. Estimated Treatment Duration: No information available Madison Puente (Tech21) documented in this encounter [facility] 08-16-2024 Note HNO ID: [id number] Author: KENZIE MCCALL [facility] Service: ? Author Type: ? [...] been reviewed prior to dispensing the medication. Trucker Assessment Patient confirmed: Yes Med/dose confirmed: Yes Supplies needed: No supplies needed Missed doses: No Estimated days supply on hand: (maybe 2 weeks, not sure) Next cycle/dose due: 08/16/24 Copay amount: 0 Payment confirmed: Yes Delivery method: FedEx Signature required: Waived on patient request Delivery address: [address] [place] [address] Delivery date: 08/31/24 Questions or concerns for [...] 6 MONTHS April 02, 2022 5:21pm pt. recyuniorves infusion Q6M for MS VITAMIN B COMPLEX ORAL Take by mouth. fluticasone (FLONASE) 50 mcg/actuation nasal spray Use 1 Transfer in each nostril once daily. No current facility-administered medications on file prior to visit. [facility] RX SPECIALTY CLINICAL ASSESSMENT - NEUROLOGY [...] inject where skin looks healthy. Training video ([employer] no longer supplies nurses for training, or injection devices) PFS supplied and training video https://www.[employer]/injectio n-assistance/cbv-lm-rgwmss DDI none pertinent Vaccines reviewed Est. Tx Plan Start Date: No information available Estimated Start Date Info: No information available Est. Estimated Treatment Duration: No information available Madison Puente ([employer]) [facility] 08-10-2024 History of Present illness Narrative [...] Vitamin (multivitamin) tablet 1 tablet, Oral, Daily Wdhhmvlp-Wsa-Bq-FA (Jenliva /) 1 MG capsule Oral Vit-Fe [...] Hypocalcemia Hypoglycemia Low iron MS (multiple sclerosis) ([facility]) Urinary incontinence 2009 HISTORY PAST MEDICAL HISTORY SOCIAL HISTORY Past Medical History: Diagnosis Date Abnormal Pap smear of cervix 2008 Bacterial vaginosis 2019 Hypocalcemia Hypoglycemia Low iron MS (multiple sclerosis) ([facility]) Urinary incontinence 2009 Social History Tobacco [...] ELECTRODE EXCISION 2007 COLONOSCOPY 2007 and 2018 COLPOSCOPY 2007 & 2017 DILATION AND CURETTAGE [...] nursing note reviewed. Exam conducted with a brewing technician present. Vitals: Estimated body mass index is [...] Clarke Hu DO documented in this encounter [facility] 07-30-2024 Note HNO ID: [id number] Author: IBAN LAZO, PhD Service: ? Author Type: Psychologist Type: Progress Notes Filed: 07/30/2024 16:31 Note Text: Behavioral Sleep Medicine Follow up Iban Lazo, PhD I have communicated my name and active licensure. The patient's identity and physical location were verified at the time of this visit. Either the patient or their legal physician relations representative has been informed of the risks and benefits of -- and alternatives to -- treatment through a remote evaluation and consents to proceed with the evaluation remotely. Contact Method: Zoom Patient Confirmed Address: [facility] [address] [place] [address] Patient Confirmed Telephone #: [phone] Time: 56 minutes Individual Psychotherapy Session # [...] disorder RLS Multiple sclerosis PROGRESS TO DATE: Business Broker Progress: Condition at intake Short Term Condition: [...] until feel sleepy (more content not included)... [facility] 07-20-2024 Instructions Germania Wilkinson MD - [...] hours of bedtime. documented in this encounter [facility] 07-20-2024 Note HNO ID: [id number] Author: GERMANIA WILKINSON MD Service: ? Author Type: Physician Type: Progress Notes Filed: 07/21/2024 15:38 Note Text: [facility] Sleep Disorders Center Follow up/ Established patient visit Date of last visit : 08/19/2023 I have communicated my name and active licensure. The patient's identity and physical location were verified at the time of this visit. Either the patient or their legal physician relations representative has been informed of the risks [...] sorted in reverse-chronological order 04/13/2024 05/23/2024 07/08/2024 Alexander Sleepiness Scale Score 0 (No clinically significant [...] mg by mo (more content not included)... [facility] 07-20-2024 History of Present illness Narrative Images from the original note were not included. [facility] Sleep Disorders Center Follow up/ Established patient visit Date of last visit : 08/19/2023 I have communicated my name and active licensure. The patient's identity and physical location were verified at the time of this visit. Either the patient or their legal physician relations representative has been informed of the risks [...] sorted in reverse-chronological order 04/13/2024 05/23/2024 07/08/2024 Alexander Sleepiness Scale Score 0 (No clinically significant [...] (FLONASE) 50 mcg/actuation nasal spray Use 1 Transfer in each nostril once daily. PHYSICAL EXAMINATION: NEUROLOGICAL EXAM: General: Awake, alert, speech fluent, comprehension, naming, repetition intact. Short and fci memory intact. IMPRESSION: Primary insomnia (primary encounter diagnosis) Rls (restless legs syndrome) Carol Ann Martinez is a 38 year old female with hx of MS and WINIFRED here for evaluation of insomnia, RLS. She is currently and has come off of trazodone for her insomnia. She is currently taking pspc-zea-buhdtmh Unisom without much benefit. Her sleep is [...] BSM for CBTi Germania Wilkinson MD Clinical Shank Turnerpayroll and benefits manager [facility] documented in this encounter [facility] 07-19-2024 Note HNO ID: [id number] Author: JANICE LANE MD Service: ? Author [...] the hip. She is not taken anything bosg-dgp-wmgjfrb for it. Patient has multiple sclerosis. Her [...] few seconds when she was on a xmygg-sg-gyafv with her daughter. She told her WAREHOUSER about the symptoms she has started to [...] mucosa, and tongue (more content not included)... [facility] 07-19-2024 History of Present illness Narrative [...] the hip. She is not taken anything iqer-xav-xigqgns for it. Patient has multiple sclerosis. Her [...] few seconds when she was on a iwwus-hl-wfevd with her daughter. She told her WAREHOUSER about the symptoms she has started to [...] by neurology. - CONSULT TO PHYSICAL THERAPY Lswevswdb-wmoowk-ve with WAREHOUSER as scheduled. Patient said she is on pelvic rest and limited lifting due to shortened cervix. Viral URI-if symptoms worsen, take amoxicillin Dry skin on the nose-give a trial of Elocon cream Janice Lane MD documented in this encounter [facility] 07-19-2024 History of Present illness [...] been reviewed prior to dispensing the medication. Trucker Assessment Patient confirmed: Yes Med/dose confirmed: Yes Supplies needed: No supplies needed Missed doses: No Estimated days supply on hand: 3 Next cycle/dose due: 07/19/24 Copay amount: 0 Payment confirmed: Yes Delivery method: FedEx Signature required: Waived on patient request Delivery address: [address] [facility] [address] Delivery date: 07/23/24 Questions or concerns for [...] (FLONASE) 50 mcg/actuation nasal spray Use 1 Transfer in each nostril once daily. No current facility-administered medications on file prior to visit. [facility] RX SPECIALTY CLINICAL ASSESSMENT - NEUROLOGY [...] inject where skin looks healthy. Training video ([employer] no longer supplies nurses for training, or injection devices) PFS supplied and training video https://www.[employer]/injectio n-assistance/axg-jb-utdlwn DDI none pertinent Vaccines reviewed Est. Tx Plan Start Date: No information available Estimated Start Date Info: No information available Est. Estimated Treatment Duration: No information available Madison Puente ([email or web address]) documented in this encounter [facility] 07-19-2024 Note HNO ID: [id number] Author: KENZIE MCCALL RPh Service: ? Author [...] been reviewed prior to dispensing the medication. Trucker Assessment Patient confirmed: Yes Med/dose confirmed: Yes Supplies needed: No supplies needed Missed doses: No Estimated days supply on hand: 3 Next cycle/dose due: 07/19/24 Copay amount: 0 Payment confirmed: Yes Delivery method: FedEx Signature required: Waived on patient request Delivery address: [address] [place] [id number] Delivery date: 07/23/24 Questions or concerns for [...] (FLONASE) 50 mcg/actuation nasal spray Use 1 Transfer in each nostril once daily. No current facility-administered medications on file prior to visit. [facility] RX SPECIALTY CLINICAL ASSESSMENT - NEUROLOGY [...] inject where skin looks healthy. Training video ([employer] no longer supplies nurses for training, or injection devices) PFS supplied and training video https://www.[employer]/injectio n-assistance/zee-vy-kicpin DDI none pertinent Vaccines reviewed Est. Tx Plan Start Date: No information available Estimated Start Date Info: No information (more content not included)... [facility] 07-08-2024 Note HNO ID: [id number] Author: IBAN LAZO, PhD Service: ? Author Type: Psychologist Type: Progress Notes Filed: 07/08/2024 14:21 Note Text: Behavioral Sleep Medicine Follow up Iban Lazo, PhD I have communicated my name and active licensure. The patient's identity and physical location were verified at the time of this visit. Either the patient or their legal physician relations representative has been informed of the risks and benefits of -- and alternatives to -- treatment through a remote evaluation and consents to proceed with the evaluation remotely. Contact Method: Zoom and Doximity (switched to Doximity after Zoom connection issues) Patient Confirmed Address: [address] [place], [place] [address] Patient Confirmed Telephone #: [phone] Time: 55 minutes Individual Psychotherapy Session # [...] disorder RLS Multiple sclerosis PROGRESS TO DATE: Business Broker Progress: Condition at intake Short Term Condition: [...] of HSAT results Iban Lazo, PhD, Psychologist ([place] license [id number]) [facility] 06-22-2024 Note HNO ID: [id number] Author: NATALIE NEWBERRY [facility] Service: ? Author Type: ? [...] disease state markers and outcomes. Natalie Newberry [facility] Trucker Assessment Patient confirmed: Yes Med/dose confirmed: Yes Supplies needed: No supplies needed Missed doses: No Estimated days supply on hand: 7 Next cycle/dose due: 06/23/24 Copay amount: 0 Delivery method: FedEx Signature required: Waived on patient request Delivery address: [address] [place] [id number] Delivery date: 06/25/24 Questions or concerns for [...] (FLONASE) 50 mcg/actuation nasal spray Use 1 Transfer in each nostril once daily. No current facility-administered medications on file prior to visit. [facility] SPECIALTY CLINICAL ASSESSMENT - NEUROLOGY [...] inject where skin looks healthy. Training video ([employer] no longer supplies nurses for training, or injection devices) PFS supplied and training video https://www.IPLocks/injectio n-assistance/xwf-ap-hesado DDI none pertinent Vaccines reviewed Est. Tx Plan Start Date: No information available Estimated Start Date Info: No information available Est. Estimated Treatment Duration: No information available Rian (more content not included)... [facility] 06-22-2024 Telephone encounter Note The following approved medication requests have been transmitted electronically. Requested Prescriptions Signed Prescriptions Disp Refills glatiramer (COPAXONE) 40 mg/mL injection 12 mL 5 Sig: Inject 40 mg subcutaneously every Friday, Friday, and Friday. Authorizing Provider: TOR HERNANDEZ APRN.TREE [facility] 06-22-2024 Miscellaneous Notes The following approved medication requests have been transmitted electronically. Requested Prescriptions Signed Prescriptions Disp Refills glatiramer (COPAXONE) 40 mg/mL injection 12 mL 5 Sig: Inject 40 mg subcutaneously every Friday, Friday, and Friday. Authorizing Provider: TOR HERNANDEZ APRN.TREE Patient is in need of a new prescription as follows: Requested Prescriptions Pending Prescriptions Disp Refills glatiramer (COPAXONE) 40 mg/mL injection 12 mL 5 Sig: Inject 40 mg subcutaneously every Friday, Friday, and Friday. Last office visit 06-09-24 Please review and advise. Marcin Ervin RPh documented in this encounter [facility] 06-22-2024 Telephone encounter Note Patient is in need of a new prescription as follows: Requested Prescriptions Pending Prescriptions Disp Refills glatiramer (COPAXONE) 40 mg/mL injection 12 mL 5 Sig: Inject 40 mg subcutaneously every Friday, Friday, and Friday. Last office visit 06-09-24 Please review and advise. Marcin Ervin RPh [facility] 06-16-2024 Note HNO ID: [id number] Author: JOSR VICENTE, PhD Service: ? Author [...] Circadian Rhythm delayed. 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 [place] : Josr Vicente, PhD, [facility] Psychologist ([place] License [id number]) Behavioral Sleep Medicine Disclosure: There are limitations of actigraphy data. This test is not a measure of daytime sleepiness or insomnia. Findings may suggest the etiology of sleepiness due to an observed pattern or help in the understanding of patterns associated with conditions being evaluated [facility] 06-14-2024 Note HNO ID: [id number] Author: ?, ?, ? Service: ? Author Type: ? Type: Progress Notes Filed: 06/14/2024 14:32 Note Text: Returned with logs [facility] 06-14-2024 History of Present illness Narrative Returned with logs Called patient to return watch ACTIGRAPHY DEVICE #[id number] Date shipped out 05/25/2024 [employer]ex MAIL OUT TRACKING NUMBER [id number] [employer]ex RETURN TRACKING NUMBER [id number], Achasah documented in this encounter [facility] 06-11-2024 Telephone encounter Note This DAIRY FARM WORKER put in a referral to the [facility] for pt to get connected to additional resources. DEZ Archer, [facility] Seg[employer]el Work [facility] 06-11-2024 Miscellaneous Notes This DAIRY FARM WORKER put in a referral to the [facility] for pt to get connected to additional resources. DEZ Archer, [facility] [employer] Work documented in this encounter [facility] 06-11-2024 Note HNO ID: [id number] Author: ?, ?, ? Service: ? Author Type: ? Type: Progress Notes Filed: 06/14/2024 14:32 Note Text: Called patient to return watch [facility] 06-10-2024 Note HNO ID: [id number] Author: CLARICE ZEPEDA HUC Service: ? Author Type: Health Egg Candler Type: Progress Notes Filed: 06/10/2024 13:06 Note Text: Mailed-nutritional supplement OTC TO PATIENT [facility] 06-10-2024 History of Present illness Narrative Mailed-nutritional supplement OTC TO PATIENT documented in this encounter [facility] 06-09-2024 Instructions Tor Hernandez APRN.CNP - 06/09/2024 3:40 PM EDT PLAN: - Continue Copaxone - plan to resume Ocrevus after delivery - Will hold on further MRI monitoring for now - Recommend oral nutritional supplement - Recommend continued close follow up with PCP and OB - Will reach out to [facility] re: finances/resources - Follow up soon after deliver documented in this encounter [facility] 06-09-2024 History of Present illness Narrative Images from the original note were not included. [facility] FOLLOWUP/ESTABLISHED VIRTUAL PATIENT VISIT PRINCIPAL NEUROLOGIC DIAGNOSIS: Multiple Sclerosis DISEASE SUMMARY Date of onset: 03/2007 Date of diagnosis of MS: 03/2007 Disease course at onset: Relapsing-Remitting Current disease course: Progressive without relapses Previous disease therapies: - Betaseron 9385-4059 - Copaxone 8985-8264 - Tysabri 2009-Summer 2019 (stopped due to planned ) - Copaxone 8725-6070 (during ) - Ocrevus (02/28/21 through 09/25/23, d/c'd for ) Current disease therapy: Copaxone (03/2024-present) Most recent MRI brain: 01/02/23 (stable) Most recent MRI cervical spine: 01/02/23 (stable) Most recent MRI thoracic spine: 01/19/24 CSF: NA JCV: 02/14/2021 0.28, stratify negative Brief Disease History: - 2006 lower extremity numbness evolving over 3 weeks following occipital relase - 6740-9166 recurrent OS ON - 9300-7539 several relapses including L numbness, weakness, constipation, urinary urgency - 2019 R weakness and numbness needing a wheelchair, hospitalized at [facility] (off Tysabri x3 months due to planning ). Also had OD vision loss at this time. At this time also notes substantial mold exposure due to it being all over her apt (has since moved). CHIEF COMPLAINT: MS symptom management Usual treating team: Esther/David Today's visit is being completed virtually over [employer]. I have communicated my name and active licensure. The patient's identity and physical location were verified at the time of this visit. Either the patient or their legal physician relations representative has been informed of the risks [...] lower extremity (04/17/2021), Multiple sclerosis ([facility]), Seizure ([facility]), and Thyroid disease. She has no past medical history of Asthma, Blood dyscrasia, Breast disorder, Chlamydia, Chronic kidney disease, Complication of anesthesia, Coronary artery disease, Diabetes ([facility]), Diabetes, gestational, Gonorrhea, Herpes simplex virus (HSV) infection, History of pre-eclampsia in prior , currently , HIV infection ([facility]), Hypertension, Infertility, female, Liver disease, Malignant hyperthermia due to anesthesia, Mental disorder, Placental abruption, depression, hemorrhage, Rh incompatibility, Sickle cell anemia ([facility]), Syphilis, or Systemic lupus erythematosus ([facility]). has a current medication list which [...] intellectual function Affect: Normal RESULTS: - see [facility] for labs 04/02/24 A1c (5.2), CBC diff [...] OB - Will reach out to [place] [facility] re: finances/resources - Follow up soon after deliver No orders found for this visit on 06/09/24. I spent a total of 40 minutes on the date of the service which included preparing to see the patient, [id number] patient care, completing clinical documentation, obtaining and/or reviewing separately obtained history, performing a medically appropriate examination, counseling and educating the patient/family/caregiver, communicating with other HCPs (not separately reported), independently interpreting results (not separately reported), and communicating results to the patient/family/caregiver. Tor Hernandez APRN.CNP [facility] for Multiple Sclerosis documented in this encounter [facility] 06-09-2024 Note HNO ID: [id number] Author: TOR HERNANDEZ APRN.CNP Service: ? Author Type: Nurse Practitioner Type: Progress Notes Filed: 06/09/2024 15:43 Note Text: [facility] FOLLOWUP/ESTABLISHED VIRTUAL PATIENT VISIT PRINCIPAL NEUROLOGIC DIAGNOSIS: Multiple Sclerosis DISEASE SUMMARY Date of onset: 03/2007 Date of diagnosis of MS: 03/2007 Disease course at onset: Relapsing-Remitting Current disease course: Progressive without relapses Previous disease therapies: - Betaseron 1009-6401 - Copaxone 2898-8593 - Tysabri 2009-Summer 2019 (stopped due to planned ) - Copaxone 3309-9817 (during ) - Ocrevus (02/28/21 through 09/25/23, d/c'd for ) Current disease therapy: Copaxone (03/2024-present) Most recent MRI brain: 01/02/23 (stable) Most recent MRI cervical spine: 01/02/23 (stable) Most recent MRI thoracic spine: 01/19/24 CSF: NA JCV: 02/14/2021 0.28, stratify negative Brief Disease History: - 2006 lower extremity numbness evolving over 3 weeks following occipital relase - 1918-1466 recurrent OS ON - 4410-0978 several relapses including L numbness, weakness, constipation, urinary urgency - 2019 R weakness and numbness needing a wheelchair, hospitalized at [facility] (off Tysabri x3 months due to planning ). Also had OD vision loss at this time. At this time also notes substantial mold exposure due to it being all over her apt (has since moved). CHIEF COMPLAINT: MS symptom management Usual treating team: Esther/David Today's visit is being completed virtually over [employer]. I have communicated my name and active licensure. The patient's identity and physical location were verified at the time of this visit. Either the patient or their legal physician relations representative has been informed of the risks [...] lower extremity (04/17/2021), Multiple sclerosis ([facility]), Seizure ([facility]), and Thyroid disease. She has no past medical history of Asthma, Blood dyscrasia, Breast disorder, Chlamydia, Chronic kidney disease, Complication of anesthesia, Coronary artery disease, Diabetes ([facility]), Diabetes, gestational, Gonorrhea, Herpes simplex virus (HSV) infection, History of pre-eclampsia in prior , currently pregna (more content not included)... [facility] 06-08-2024 Instructions Germania Wilkinson MD - [...] is done to review results. - Call [phone] to schedule your sleep study and follow [...] the central scheduling system for the [facility] [place] at [phone]. [facility] website: [email or web address] documented in this encounter [facility] 06-08-2024 Note HNO ID: [id number] Author: GERMANIA WILKINSON MD Service: ? Author Type: Physician Type: Progress Notes Filed: 07/05/2024 23:04 Note Text: [facility] Follow up/ Established patient visit Date of last visit : 08/19/2023 I have communicated my name and active licensure. The patient's identity and physical location were verified at the time of this visit. Either the patient or their legal physician relations representative has been informed of the risks [...] Syndrome Abnormal sleep/wake timing 03/19/2024 04/13/2024 05/23/2024 Alexander Sleepiness Scale Score 0 (No clinically significant [...] (FLONASE) 50 mcg/actuation nasal spray Use 1 Transfer in each nostril once daily. Prior Hypersomnia/Narcolepsy [...] prescription Medication renetta (more content not included)... [facility] 06-08-2024 History of Present illness Narrative Images from the original note were not included. [facility] Follow up/ Established patient visit Date of last visit : 08/19/2023 I have communicated my name and active licensure. The patient's identity and physical location were verified at the time of this visit. Either the patient or their legal physician relations representative has been informed of the risks [...] Syndrome Abnormal sleep/wake timing 03/19/2024 04/13/2024 05/23/2024 Alexander Sleepiness Scale Score 0 (No clinically significant [...] (FLONASE) 50 mcg/actuation nasal spray Use 1 Transfer in each nostril once daily. Prior Hypersomnia/Narcolepsy [...] Germania Wilkinson MD documented in this encounter [facility] 05-27-2024 Note HNO ID: [id number] Author: IBAN LAZO, PhD Service: ? Author Type: Psychologist Type: Progress Notes Filed: 05/27/2024 18:02 Note Text: Behavioral Sleep Medicine Follow up Iban Lazo, PhD I have communicated my name and active licensure. The patient's identity and physical location were verified at the time of this visit. Either the patient or their legal physician relations representative has been informed of the risks and benefits of -- and alternatives to -- treatment through a remote evaluation and consents to proceed with the evaluation remotely. 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 Pt indicated she was on her way to a medical facility to pickup driver paperwork regarding her 2 week pelvic rest plan. Patient Confirmed Telephone #: [phone] Time: 33 minutes Individual Psychotherapy Session # [...] vehicle not in her burns range- Dariel [employer]. She stated that she does not know [...] to avoid driving if sleepy/drowsy and to hand assembler for puller over to a safe space to rest if she does find herself drowsy/sleepy while driving. Pt noted that her WAREHOUSER stated she could take Unisom to sleep during - asked pt to wait to take this medication until after she completes actigraphy testing as we want to get a sense of her baseline sleep rhythms. Pt verbalized understanding. Pt reported that sleep quality has been the same. Pt stated that she is working with a therapist at [facility] named Aravind Retana- she reported that they most recently have talked about helping her to stop shopping and learning how to say no to people. Pt provided verbal consent for this provider to contact Aravind Retana to discuss pt's case to coordinate care and provided his contact phone number: [phone] Discussed the following plan with patient Complete [...] disorder RLS Multiple sclerosis PROGRESS TO DATE: [facility] Progress: Condition at intake Short Term Condition: [...] to start Uniso (more content not included)... [facility] 05-25-2024 Note HNO ID: [id number] Author: ?, ?, ? Service: ? Author Type: ? Type: Progress Notes Filed: 06/14/2024 14:32 Note Text: ACTIGRAPHY DEVICE #[id number] Date shipped out 05/25/2024 [email or web address] MAIL OUT TRACKING NUMBER [id number] Fedex RETURN TRACKING NUMBER [id number], Achasah [facility] 05-24-2024 History of Present illness Narrative [...] laboratory parameters, disease state markers and outcomes. Trucker Assessment Patient confirmed: Yes Med/dose confirmed: Yes Supplies needed: Alcohol swabs Missed doses: No Estimated days supply on hand: 10 Next cycle/dose due: 05/26/24 Copay amount: 0 Delivery method: FedEx Signature required: Waived on patient request Delivery address: [address] [place] [id number] Delivery date: 06/01/24 Questions or concerns for [...] (FLONASE) 50 mcg/actuation nasal spray Use 1 Transfer in each nostril once daily. No current facility-administered medications on file prior to visit. [facility] Visit Assessment - [...] inject where skin looks healthy. Training video ([employer] no longer supplies nurses for training, or injection devices) PFS supplied and training video https://www.IPLocks/injectio n-assistance/lzk-jl-sfeldz DDI none pertinent Vaccines reviewed Jus Saucedo CPhT Neurology, Cardiology & Infectious Disease [facility] documented in this encounter [facility] 05-24-2024 Note HNO ID: [id number] Author: MARCIN ERVIN RPh Service: ? Author [...] markers and outcomes. Marcin Ervin, PharmD Pharmacist, [facility] Specialty Fur Puller Assessment Patient confirmed: Yes Med/dose confirmed: Yes Supplies needed: Alcohol swabs Missed doses: No Estimated days supply on hand: 10 Next cycle/dose due: 05/26/24 Copay amount: 0 Delivery method: FedEx Signature required: Waived on patient request Delivery address: [address] [place] [address] Delivery date: 06/01/24 Questions or concerns for [...] (FLONASE) 50 mcg/actuation nasal spray Use 1 Transfer in each nostril once daily. No current facility-administered medications on file prior to visit. [facility] Visit Assessment - [...] inject where skin looks healthy. Training video ([employer] no longer supplies nurses for training, or injection devices) PFS supplied and training video https://www.IPLocks/injectio n-assistance/egv-zc-xtbbpz DDI none pertinent Vaccines reviewed Refill Assessment: Assessment of injection issues or necrosis at injection sites: Yes Screening for infection: Yes Adverse reactions and mitigation: Yes Drug specific assessments, as appropriate: Yes Additional Assessment: S/Sx of relapse: No S/Sx of progression to secondary progressive disease: No (more content not included)... [facility] 05-10-2024 Note HNO ID: [id number] Author: IBAN LAZO, PhD Service: ? Author Type: Psychologist Type: Progress Notes Filed: 05/10/2024 14:16 Note Text: Appointment canceled. Pt logged on to visit but was located in a public setting and in the state of [place]. Explained that due to psychology licensure laws I cannot meet with patients unless they are physically located within the state of [place]. Pt stated she is returning to [place] on Wednesday 05/16. Next visit scheduled for 05/27. Iban Lazo, PhD, Psychologist ([place] license [id number]) [facility] 04-26-2024 History of Present illness Narrative [...] laboratory parameters, disease state markers and outcomes. Trucker Assessment Patient confirmed: Yes Med/dose confirmed: Yes Supplies needed: No supplies needed Missed doses: Yes Count of missed doses: 1 Reason for missed doses: stated medication misfired Estimated days supply on hand: 4 Next cycle/dose due: 04/26/24 Copay amount: 0 Payment confirmed: Yes Delivery method: FedEx Signature required: Waived on patient request Delivery address: [address] [facility] [place] [address] Delivery date: 04/28/24 Questions or concerns for [...] (FLONASE) 50 mcg/actuation nasal spray Use 1 Transfer in each nostril once daily. No current facility-administered medications on file prior to visit. [facility] Visit Assessment - [...] inject where skin looks healthy. Training video ([employer] no longer supplies nurses for training, or injection devices) PFS supplied and training video https://www.[employer]/injectio n-assistance/kue-ef-mbcaay DDI none pertinent Vaccines reviewed Jazmine Mcclure CPhT Cardiology, Neurology & Infectious Disease [facility] documented in this encounter [facility] 04-26-2024 Note HNO ID: [id number] Author: MARCIN ERVIN RPh Service: ? Author [...] markers and outcomes. Marcin Ervin, PharmD Pharmacist, [facility] Specialty Fur Puller Assessment Patient confirmed: Yes Med/dose confirmed: Yes Supplies needed: No supplies needed Missed doses: Yes Count of missed doses: 1 Reason for missed doses: stated medication misfired Estimated days supply on hand: 4 Next cycle/dose due: 04/26/24 Copay amount: 0 Payment confirmed: Yes Delivery method: FedEx Signature required: Waived on patient request Delivery address: [address] [place] [address] Delivery date: 04/28/24 Questions or concerns for [...] (FLONASE) 50 mcg/actuation nasal spray Use 1 Transfer in each nostril once daily. No current facility-administered medications on file prior to visit. [facility] Visit Assessment - [...] inject where skin looks healthy. Training video ([employer] no longer supplies nurses for training, or injection devices) PFS supplied and training video https://www.[employer]/injectio n-assistance/dne-mk-maaeft DDI none pertinent Vaccines reviewed Refill Assessment: Assessment of injection issues or necrosis at injection sites: Yes Screening for infection: Yes Adverse reactions and mitigation: Yes Drug specific assessments, as appropriate: Yes Additional Assessment: Current MPR%: 100 S/Sx of relapse: No S/Sx of progression to secondary progressive disease: (more content not included)... [facility] 04-20-2024 Note HNO ID: [id number] Author: IBAN LAZO, PhD Service: ? Author Type: Psychologist Type: Progress Notes Filed: 04/21/2024 12:27 Note Text: Behavioral Sleep Medicine Follow up Iban Lazo, PhD I have communicated my name and active licensure. The patient's identity and physical location were verified at the time of this visit. Either the patient or their legal physician relations representative has been informed of the risks and benefits of -- and alternatives to -- treatment through a remote evaluation and consents to proceed with the evaluation remotely. Contact Method: Zoom Patient Confirmed Address: [address] [place] [address] Patient Confirmed Telephone #: [phone] Time: 45 minutes Individual Psychotherapy Session # [...] disorder RLS Multiple sclerosis PROGRESS TO DATE: [facility]pc Progress: Condition at intake Short Term Condition: [...] team members. 6. (more content not included)... [facility] 03-31-2024 History of Present illness Narrative [facility] received prescription(s) for Glatiramer from Dr. Tor Hernandez office. Benefits investigation was conducted, indicating we will need to call to verify if a prior authorization is required/needed by pt's plan with [employer] . Thang Santana CPhT (Dee) [facility] Neurology/Cardiology/Infections Disease [facility] P: F: PA for pt's Glatiramer has been approved by [employer]. Reuben 03/31/24 - 11/09/24. Madison Puente [facility] Fur Puller, Specialty Pharmacy [facility] [address] / [id number] [place] [address] Email: [email or web address] documented in this encounter [facility] 03-31-2024 Note HNO ID: [id number] Author: ?, ?, ? Service: ? Author Type: ? Type: Progress Notes Filed: 03/31/2024 10:57 Note Text: [facility] [facility](s[facility] for Glatiramer from Dr. Tor Hernandez office. Benefits investigation was conducted, indicating we will need to call to verify if a prior authorization is required/needed by pt's plan with Sherri . Thang Santana CPhT (Dee) [facility] Neurology/Cardiology/Infections Disease [facility] P: F: [facility] 03-31-2024 Note HNO ID: [id number] Author: ?, ?, ? Service: ? Author Type: ? Type: Progress Notes Filed: 03/31/2024 12:24 Note Text: PA for pt's Glatiramer has been approved by [employer]. Alexis 03/31/24 - 11/09/24. Madison Puente [facility] [address] [place] [address] Email: [email or web address] 03-31-2024 Note HNO ID: [id number] Author: NATALIE NEWBERRY [facility] Service: ? Author Type: Pharmacist Type: Progress Notes Filed: 04/08/2024 11:37 Note Text: [facility] received prescription(s) for Glatiramer from Dr. Warren's office. Benefits investigation was conducted, indicating that a prior authorization is required. PA was approved with details listed below: Plan Name: Sherri GRIGGS reference number: [id number] Approval Dates: 03/31/24 to 11/09/24 Pt's copay [...] MD No Neurogenic bladder 07/14/2020 Nikole Moe APRN.JEWELRY CASTING MODEL MAKER APPRENTICE No Overview Signed 04/17/2021 7:30 AM by [...] MD No Optic neuritis 08/21/2019 Nikole Moe APRN.JEWELRY CASTING MODEL MAKER APPRENTICE No Overview Signed 04/17/2021 7:30 AM by Nikole Moe APRN.CNP Start Date: 03/2009 Start Date: 03/2009 Bilateral hearing loss 07/14/2018 Nikole Moe APRN.CNP No Ovarian cyst, complex 04/14/2018 Nikole Moe APRN.TREE No Ovarian torsion 04/14/2018 Nikole Moe APRN.JEWELRY CASTING MODEL MAKER APPRENTICE No Restless leg syndrome 07/28/2017 Klem, Nikole, VISUAL MERCHANDISER.JEWELRY CASTING MODEL MAKER APPRENTICE No Cognitive communication deficit 07/22/2022 Amina Vazquez, CCC-TEAM OTR TRUCK DRIVER 07/17/[address] MD Costochondritis, acute 04/17/2021 KleNikole pérez, VISUAL MERCHANDISER.JEWELRY CASTING MODEL MAKER APPRENTICE 04/20/2021 KleNikole pérez, VISUAL MERCHANDISER.JEWELRY CASTING MODEL MAKER APPRENTICE Edema of lower extremity 04/17/2021 KleNikole pérez, VISUAL MERCHANDISER.JEWELRY CASTING MODEL MAKER APPRENTICE 04/20/2021 KleNikole pérez, VISUAL MERCHANDISER.JEWELRY CASTING MODEL MAKER APPRENTICE Hypoglycemia 03/07/2021 Nikole Moe, VISUAL MERCHANDISER.JEWELRY CASTING MODEL MAKER APPRENTICE 07/17/[address] MD NO SHOW 01/22/2021 Lala Forman, DO 04/17/2021 Nikole Moe, VISUAL MERCHANDISER.JEWELRY CASTING MODEL MAKER APPRENTICE Encounter for induction of labor 01/08/2021 Subha [...] third trimester 12/25/2020 Jovani Tolentino MD 01/11/2021 J-oAnn Aragon MD AMA (advanced maternal age) primigravida 35+, second trimester 2020 Lala Forman, DO 01/11/2021 Jo-Ann Aragon MD History of loop electrosurgical excision procedure (LEEP) of cervix affecting in second trimester 2020 Lala Forman, DO 01/11/2021 Jo-Ann Aragon MD Constipation 10/06/2019 Nikole Moe, VISUAL MERCHANDISER.JEWELRY CASTING MODEL MAKER APPRENTICE 07/17/[address] MD Gait difficulty 10/06/2019 Nikole Moe APRN.JEWELRY CASTING MODEL MAKER APPRENTICE 07/17/[address] MD Cognitive complaints 03/03/2019 Nikole Moe APRN.JEWELRY CASTING MODEL MAKER APPRENTICE 07/17/[address] MD Syncope and collapse 12/04/2018 Nikole Moe APRN.JEWELRY CASTING MODEL MAKER APPRENTICE 07/17/[address] MD Obstructive sleep apnea 07/28/2017 Payal, (more content not included)... [facility] 03-30-2024 Note HNO ID: [id number] Author: ROXY HOGAN PSYD Service: ? Author Type: Resident Type: Progress Notes Filed: 04/01/2024 10:51 Note Text: [facility]BT-[facility] Virtual Group March 30, 2024 Time: 3-4:05pm [id number]: Virtual Group Psychotherapy Providers: Teo Elliott have communicated my name and active licensure. The patient's identity and physical location were verified at the time of this visit. Either the patient or their legal physician relations representative has been informed of the risks [...] transcribed by Iris Yoon, PhD [facility] Fellow [facility] 03-30-2024 Note HNO ID: [id number] Author: CLARICE ZEPEDA HUC Service: ? Author Type: Health Egg Candler Type: Progress Notes Filed: 03/30/2024 14:55 Note Text: Faxed Glatiramer Acetate form with ins info [facility] 03-30-2024 History of Present illness Narrative Faxed Glatiramer Acetate form with ins info documented in this encounter [facility] 03-30-2024 Instructions Tor Hernandez APRN.CNP - 03/30/2024 2:27 PM EDT PLAN: - Stop Ocrevus for now - Will hold on further MRI monitoring for now - Will submit for Copaxone during - Stop Ampyra and tizanidine - Continue vitamin D and magnesium - Follow up in 8-9 months virtually documented in this encounter [facility] 03-30-2024 History of Present illness Narrative Images from the original note were not included. [facility] FOLLOWUP/ESTABLISHED VIRTUAL PATIENT VISIT PRINCIPAL NEUROLOGIC DIAGNOSIS: Multiple Sclerosis DISEASE SUMMARY Date of onset: 03/2007 Date of diagnosis of MS: 03/2007 Disease course at onset: Relapsing-Remitting Current disease course: Progressive without relapses Previous disease therapies: - Betaseron 6062-2919 - Copaxone 2267-4249 - Tysabri 2009-Summer 2019 (stopped due to planned ) - Copaxone 1316-4629 (during ) Current disease therapy: Ocrevus (since 02/28/21, most recent 09/25/23) Most recent MRI brain: 01/02/23 (stable) Most recent MRI cervical spine: 01/02/23 (stable) Most recent MRI thoracic spine: 07/23/2022 CSF: NA JCV: 02/14/2021 0.28, stratify negative Brief Disease History: - 2006 lower extremity numbness evolving over 3 weeks following occipital relase - 9509-9035 recurrent OS ON - 1235-4505 several relapses including L numbness, weakness, constipation, urinary urgency - 2019 R weakness and numbness needing a wheelchair, hospitalized at [facility] (off Tysabri x3 months due to planning ). Also had OD vision loss at this time. At this time also notes substantial mold exposure due to it being all over her apt (has since moved). CHIEF COMPLAINT: Follow up, discussion on recent + Usual treating team: Esther/David Today's visit is being completed virtually over [employer]. I have communicated my name and active licensure. The patient's identity and physical location were verified at the time of this visit. Either the patient or their legal physician relations representative has been informed of the risks [...] to that Is trying to find a systems trainer as she knows she needs to improve her strength Last took Copaxone and felt good Would like to continue Copaxone again this - will need her mobile home installer to administer injections Does plan to breastfeed [...] lower extremity (04/17/2021), Multiple sclerosis ([facility]), Seizure ([facility]), and Thyroid disease. She has no past medical history of Asthma, Blood dyscrasia, Breast disorder, Chlamydia, Chronic kidney disease, Complication of anesthesia, Coronary artery disease, Diabetes ([facility]), Diabetes, gestational, Gonorrhea, Herpes simplex virus (HSV) infection, History of pre-eclampsia in prior , currently , HIV infection ([facility]), Hypertension, Infertility, female, Liver disease, Malignant hyperthermia due to anesthesia, Mental disorder, Placental abruption, depression, hemorrhage, Rh incompatibility, Sickle cell anemia ([facility]), Syphilis, or Systemic lupus erythematosus ([facility]). has a current medication list which [...] D supplementation Follow-up: In 9 months at [place] or Virtual Visit with [facility] APC I spent a total of 40 minutes on the date of the service which included preparing to see the patient, [id number] patient care, completing clinical documentation, obtaining and/or reviewing separately obtained history, performing a medically appropriate examination, counseling and educating the patient/family/caregiver, and ordering medications, tests, or procedures. Tor Hernandez APRN.CNP [facility] for Multiple Sclerosis documented in this encounter [facility] 03-30-2024 Note HNO ID: [id number] Author: TOR HERNANDEZ APRN.CNP Service: ? Author Type: Nurse Practitioner Type: Progress Notes Filed: 03/30/2024 14:27 Note Text: [facility] FOLLOWUP/ESTABLISHED VIRTUAL PATIENT VISIT PRINCIPAL NEUROLOGIC DIAGNOSIS: Multiple Sclerosis DISEASE SUMMARY Date of onset: 03/2007 Date of diagnosis of MS: 03/2007 Disease course at onset: Relapsing-Remitting Current disease course: Progressive without relapses Previous disease therapies: - Betaseron 2129-8362 - Copaxone 4914-0443 - Tysabri 2009-Summer 2019 (stopped due to [...] over 3 weeks following occipital relase - 0432-9799 recurrent OS ON - 4962-8976 several relapses including L numbness, weakness, constipation, urinary urgency - 2019 R weakness and numbness needing a wheelchair, hospitalized at [facility] (off Tysabri x3 months due to planning ). Also had OD vision loss at this time. At this time also notes substantial mold exposure due to it being all over her apt (has since moved). CHIEF COMPLAINT: Follow up, discussion on recent + Usual treating team: Esther/David Today's visit is being completed virtually over [employer]. I have communicated my name and active licensure. The patient's identity and physical location were verified at the time of this visit. Either the patient or their legal physician relations representative has been informed of the risks [...] to that Is trying to find a systems trainer as she knows she needs to improve her strength Last took Copaxone and felt good Would like to continue Copaxone again this - will need her mobile home installer to administer injections Does plan to breastfeed [...] lower extremity (04/17/2021), Multiple sclerosis ([facility]), Seizure ([facility]), and Thyroid disease. She has no past medical history of Asthma, Blood dyscrasia, Breast disorder, Chlamydia, Chronic kidney disease, Complication of anesthesia, Coronary artery disease, Diabetes ([facility]), Diabetes, gestational, Gonorrhea, Herpes simplex virus (HSV) infection, History of pre-eclampsia in prior , currently , HIV infection ([facility]), Hypertension, Infertility, female, Liver disease, Malignant hyperthermia due to anesthesia, Mental disorder, Placental abruption, depression, hemorrhage, Rh incompatibility, Sickle cell anemia ([facility]), Syphilis, or Systemic lupus erythematosus ([facility]). has a current medication list which includes the following prescription(s): ketoconazole, ferrous sulfate, ketoconazole, melatonin, fluticasone, magnesium oxide, polyethylene glycol 3350, cholecalciferol, mirtazapine, norethindrone (contraceptive), vitamin b (more content not included)... [facility] 03-24-2024 Telephone encounter Note Patient calls to cancel her Ocrevus infusion scheduled for Friday due to having a positive test stating she doesn't believe she can receive this infusion while . Appointment cancelled. Viviana Sands [facility] 03-24-2024 Miscellaneous Notes Patient calls to cancel her Ocrevus infusion scheduled for Friday due to having a positive test stating she doesn't believe she can receive this infusion while . Appointment cancelled. Viviana Sands documented in this encounter [facility] 03-22-2024 Instructions Ayan Marie APRN.JEWELRY CASTING MODEL MAKER APPRENTICE - 03/22/2024 2:44 PM EDT Contact information for sleep disorders center: For questions regarding your care call [phone] option X 5 To schedule an appointment with the sleep center call [phone] RLS treatment: Start magnesium supplements (500mg-1000mg daily). [...] and physical conditioning documented in this encounter [facility] 03-22-2024 History of Present illness Narrative Images from the original note were not included. [facility] Disorders Center Follow up/ [...] which included preparing to see the patient, [id number] patient care, completing clinical documentation, counseling and educating the patient/family/caregiver, and ordering medications, tests, or procedures. Germania Wilkinson MD I have communicated my name and active licensure. The patient's identity and physical location were verified at the time of this visit. Either the patient or their legal physician relations representative has been informed of the risks [...] Abnormal behaviors/movements during sleep 01/03/2020 08/11/2023 03/19/2024 Alexander Sleepiness Scale Score 0 (No clinically significant [...] (FLONASE) 50 mcg/actuation nasal spray Use 1 Transfer in each nostril once daily. PHYSICAL EXAMINATION: [...] time: 22 minutes documented in this encounter [facility] 03-22-2024 Note HNO ID: [id number] Author: AYAN MARIE APRN.CNP Service: ? Author Type: Nurse Practitioner Type: Progress Notes Filed: 03/25/2024 20:46 Note Text: [facility] Sleep Disorders Center Follow up/ [...] which included preparing to see the patient, [id number] patient care, completing clinical documentation, counseling and educating the patient/family/caregiver, and ordering medications, tests, or procedures. Germania Wilkinson MD I have communicated my name and active licensure. The patient's identity and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 W/O & W/CONTR Marshall Beltrán MD, PhD [address] [place] [phone] Mr Imaging [facility]95 Referral ID Status Reason Start Date Expiration Date V isits Requested Visits Authorized [id number] Closed Auto-Generate d Referral 07/18/2022 08/17/2022 1 [...] transabdominal approach Clarke Hu DO [address] [facility] [address], [place] [address] Referral ID Status Reason Start Date Expiration Date Visits Requested Visits Authorized [id number] Pending Review Perform Procedure 07/02/2024 07/02/2025 1 1 Reason Comments Orders OTC-Nutritional Supp l Reason Comments Eye Discharge Both Eyes Fatigue Reason Comments PT Eval Patient Education Specialty Diagnoses / Procedures Referred By Contac t Referred To Contact PHYSICAL THERAPY Diagnoses Right hip pain Multiple sclerosis (HCC) Procedures CONSULT TO PHYSICAL THERAPY PHYSICAL THERAPY EVALUATION HIGH COMPLEX [address] MD [address] [place] [address] Pt [facility] [address] [place] [address] Referral ID Status Reason Start Date Expiration Date V isits Requested Visits Authorized [id number] Closed Auto-Generate d Referral 11/10/2023 11/09/2024 1 1 Reason Onset Date Comments SPP Neurology - Medication Refill 09/20/2024 Glatiramer Reason Comments Physical Therapy Specialty Diagnoses / Procedures Referred By Contac t Referred To Contact PHYSICAL THERAPY Diagnoses Right hip pain Procedures PT REHAB FOLLOW UP ORDER THERAPEUTIC EXERCISES RE, EA 15 MIN. Estrella Sorto, PT, DPT [address] [facility] [place] [address] Pt [facility] [address] [place] [address] Referral ID Status Reason Start Date Expiration Date Visits Requested Visits Authorized [id number] Authorized PCP Requested Referral Auto-Generate d Referral 11/09/2024 4 4 Reason Comments Patient Education Assessment Specialty Diagnoses / Procedures Referred By Contac t Referred To Contact Nutrition Diagnoses Multiple sclerosis (HCC) Procedures CONSULT TO NUTRITION THERAPY MEDICAL NUTRITION ASSMT&IVNTJ INDIV EACH 15 NC Tor Hernandez, VISUAL MERCHANDISER.JEWELRY CASTING MODEL MAKER APPRENTICE [address] [place] [address] Referral ID Status Reason Start Date Expiration Date Visits Requested Visits Authorized [id number] Authorized PCP Requested Referral 09/06/2025 1 4 Care Teams (unrecognized sec tion and content) Team Status: Active Member Role Status Dates Janice Lane MD Primary Care Provider Active Team Status: Inactive Member Role Status Dates Janice Lane MD Primary Care Provider Active Start: November 28, 2023 End: November 28, 2023 Clarke Hu Attending Provider Active Start: Dmitri brown 2023 End: November 28, 2023 Hr Leader Relationship Specialty Start Date End Date Janice Lane MD [address] [place], [place] [id number] PCP - General Family Practice 12/09/19 Hr Leader Relationship Specialty Start Date End Date Janice Lane MD [address] [facility] [place] [address] PCP - General Family Practice 12/09/19 Team Status: Inactive Member Role Status Dates Vishal Agarwal DO Emergency Provider Active Janice Lane MD Primary Care Provider Active Hr Leader Relationship Specialty Start Date End Date Janice Lane MD [address] [facility] [place] [address] PCP - General Family Practice 12/09/19 Hr Leader Relationship Specialty Start Date End [place]ice [place] [address] [place] [address], [place] [address] PCP - General Family Practice 12/09/19 Hr Leader Relationship Specialty Start Date End Date Janice Lane MD [address] [facility] [place] [address] PCP - General Family Practice 12/09/19 Hr Leader Relationship Specialty Start Date End Date Janice Lane MD [address] [facility] [place] [address] PCP - General Family Practice 12/09/19 Hr Leader Relationship Specialty Start Date End [place] [address] [place] [address], [place] [address] PCP - General Family Practice 12/09/19 Hr Leader Relationship Specialty Start Date End Date Janice [place] [address] [place] [address], [place] [address] PCP - General Family Practice 12/09/19 Hr Leader Relationship Specialty Start Date End [place] [address] [place] [address], [place] [address] PCP - General Family Practice 12/09/19 Hr Leader Relationship Specialty Start Date End [place] [address] [place] [address], [place] [address] PCP - General Family Practice 12/09/19 Hr Leader Relationship Specialty Start Date End [place] [address] [place] [address], [place] [address] PCP - General Family Practice 12/09/19 Hr Leader Relationship Specialty Start Date End [place] Janice [place] [address] [place] [address], [place] [address] PCP - General Family Medicine 12/09/19 Hr Leader Relationship Specialty Start Date End Date Janice [place] [address] [place] [address], [place] [address] PCP - General Family Medicine 12/09/19 Hr Leader Relationship Specialty Start Date End [place] [address] [place] [address], [place] [address] PCP - General Family Medicine 12/09/19 Hr Leader Relationship Specialty Start Date End Date Janice [place] [address] [place] [address], [place] [address] PCP - General Family Medicine 12/09/19 Hr Leader Relationship Specialty Start Date End Date Janice [place] [address] [place] [address], [place] [address] PCP - General Family Medicine 12/09/19 Hr Leader Relationship Specialty Start Date End Date Janice [place] [address] [place] [address], [place] [address] PCP - General Family Medicine 12/09/19 Hr Leader Relationship Specialty Start Date End Date Janice [place] [address] [place] [address], [place] [address] PCP - General Family Medicine 12/09/19 Team Status: Inactive Member Role Status Dates Janice Lane MD Primary Care Provider Active Vishal Agarwal DO Emergency Provider Active Hr Leader Relationship Specialty Start Date End Date Janice [place] [address] [place] [address], [place] [address] PCP - General Family Medicine 12/09/19 Hr Leader Relationship Specialty Start Date End [place] Janice [place] [address] [place] [address], [place] [address] PCP - General Family Medicine 12/09/19 Hr Leader Relationship Specialty Start Date End Date Janice Lane [place] [address] [place] [address], [place] [address] PCP - General Family Medicine 12/09/19 Hr Leader Relationship Specialty Start Date End [place] Janice [place] [address] [place] [address], [place] [address] PCP - General Family Medicine 12/09/19 Hr Leader Relationship Specialty Start Date End [place] [address] [place] [address], [place] [address] PCP - General Family Medicine 12/09/19 Hr Leader Relationship Specialty Start Date End [place] [address] [place] [address], [place] [address] PCP - General Family Medicine 12/09/19 Hr Leader Relationship Specialty Start Date End Date Janice Lane MD [address] [facility] [place] [address] PCP - General Family Medicine 12/09/19 Hr Leader Relationship Specialty Start Date End Date Janice Lane MD [address] [facility] [place] [address] PCP - General Family Medicine 12/09/19 Hr Leader Relationship Specialty Start Date End Date Janice Lane MD [address] [facility] [place] [address] PCP - General Family Medicine 12/09/19 Hr Leader Relationship Specialty Start Date End Date Janice Lane MD [address] [facility] [place] [address] PCP - General Family Medicine 12/09/19 Hr Leader Relationship Specialty Start Date End Date Janice Lane MD [address] [facility] [place] [address] PCP - General Family Medicine 12/09/19 Hr Leader Relationship Specialty Start Date End Date Janice Lane MD [address] [facility] [place] [address] PCP - General Family Medicine 12/09/19 Hr Leader Relationship Specialty Start Date End Date Janice Lane MD [address] [facility] [place] [address] PCP - General Family Medicine 12/09/19 Hr Leader Relationship Specialty Start Date End Date Janice Lane MD [address] [facility] [place] [address] PCP - General Family Medicine 12/09/19 Hr Leader Relationship Specialty Start Date End Date Janice Lane MD [address] [facility] [place] [address] PCP - General Family Medicine 12/09/19 Hr Leader Relationship Specialty Start Date End Date Janice Lane MD [address] [facility] [place] [address] PCP - General Family Medicine 12/09/19 Hr Leader Relationship Specialty Start Date End Date Janice Lane MD [address] [facility] [place] [address] PCP - General Family Medicine 12/09/19 Hr Leader Relationship Specialty Start Date End Date Janice Lane MD [address] [facility] [place] [address] PCP - General Family Medicine 12/09/19 Hr Leader Relationship Specialty [place] [address] [place] [address] PCP - General Pediatrics 10/26/23 Hr Leader Relationship Specialty [place] [address] [place] [address] PCP - General Pediatrics 10/26/23 Hr Leader Relationship Specialty Start Date End Date Janice Lane MD [address] [facility] [place] [address] PCP - General Family Medicine 12/09/19 Hr Leader Relationship Specialty Start Date End Date Janice Lane MD [address] [facility] [place] [address] PCP - General Family Medicine 12/09/19 Hr Leader Relationship Specialty Start Date End Date Janice Lane MD [address] [facility] [place] [address] PCP - General Family Medicine 12/09/19 Hr Leader Relationship Specialty Start Date End Date Janice Lane MD [address] [facility] [place] [address] PCP - General Family Medicine 12/09/19 Hr Leader Relationship Specialty Start Date End Date Janice Lane MD [address] [facility] [place] [address] PCP - General Family Medicine 12/09/19 Hr Leader Relationship Specialty Start Date End Date Janice Lane MD [address] [facility] [place] [address] PCP - General Family Medicine 12/09/19 Hr Leader Relationship Specialty Start Date End Date Janice Lane MD [address] [facility] [place] [address] PCP - General Family Medicine 12/09/19 Team Status: Inactive Member Role Status Dates Janice Lane MD Primary Care Provider Active Start: February 24, 2024 End: February 24, 2024 Clarke Hu Attending Provider Active Start: Ap sarah 2023 End: February 24, 2024 Hr Leader Relationship Specialty Start Date End Date Janice Lane MD [address] [facility] [place] [address] PCP - General Family Medicine 12/09/19 Team Status: Inactive Member Role Status Dates Janice Lane MD Primary Care Provider Active Start: March 17, 2024 End: March 17, 2024 Clarke Hu Attending Provider Active Start: Negro campbell 2023 End: March 17, 2024 Hr Leader Relationship Specialty Start Date End Date Janice Lane MD [address] [facility] [place] [address] PCP - General Family Medicine 12/09/19 Hr Leader Relationship Specialty Start Date End Date Janice Lane MD [address] [facility] [place] [address] PCP - General Family Medicine 12/09/19 Hr Leader Relationship Specialty Start Date End Date Janice Lane MD [address] [facility] [place] [address] PCP - General Family Medicine 12/09/19 Hr Leader Relationship Specialty Start Date End Date Janice Lane MD [address] [facility] [place] [address] PCP - General Family Medicine 12/09/19 Marcin Ervin, [facility] 05/30/24 Hr Leader Relationship Specialty Start Date End Date Janice Lane MD [address] [facility] [place] [address] PCP - General Family Medicine 12/09/[address] [facility] 05/30/[facility] Hr Leader Relationship Specialty Start Date End Date Janice Lane MD [address] [facility] [place] [address] PCP - General Family Medicine 12/09/[address] [facility] 05/30/24 Hr Leader Relationship Specialty Start Date End Date Janice Lane MD [address] [facility] [place] [address] PCP - General Family Medicine 12/09/[address] [facility] 05/30/24 Hr Leader Relationship Specialty Start Date End Date Janice Lane MD [address] [facility] [place] [address] PCP - General Family Medicine 12/09/[address] [facility] 05/30/24 Hr Leader Relationship Specialty Start Date End Date Janice Lane MD [address] [facility] [place] [address] PCP - General Family Medicine 12/09/[address] [facility] 05/30/24 Hr Leader Relationship Specialty Start Date End Date Janice Lane MD [address] [facility] [place] [address] PCP - General Family Medicine 12/09/19 Hr Leader Relationship Specialty Start Date End Date Janice Lane MD [address] [facility] [place] [address] PCP - General Family Medicine 12/09/[address] [facility] 05/30/24 Hr Leader Relationship Specialty Start Date End Date Janice Lane MD [address] [facility] [place] [address] PCP - General Family Medicine 12/09/19 Hr Leader Relationship Specialty Start Date End Date Janice Lane MD [address] [place] [address] PCP - General Family Medicine 12/09/19 Hr Leader Relationship Specialty Start Date End Date Janice Lane MD [address] [place] [address] PCP - General Family Medicine 12/09/19 Hr Leader Relationship Specialty [place] [address] [place] [address] PCP - General Pediatrics 10/26/23 Hr Leader Relationship Specialty Start Date End Date Janice Lane MD [address] [place] [address] PCP - General Family Medicine 12/09/19 Marcin Ervin [facility] 05/30/24 Hr Leader Relationship Specialty [place] [address] [place] [address] PCP - General 12/13/19 Nataly Tripathi, VISUAL MERCHANDISER-JEWELRY CASTING MODEL MAKER APPRENTICE [address] [place] [address] Elementary Tutor Obstetrics 8/7/24 Hr Leader Relationship Specialty [place] [address] [place] [address] PCP - General 12/13/19 Nataly Tripathi, VISUAL MERCHANDISER-JEWELRY CASTING MODEL MAKER APPRENTICE [address] [place] [address] Elementary Tutor Obstetrics 06/16/24 Hr Leader Relationship Specialty Start Date End Date Janice Lane MD [address] [place] [address] PCP - General Family Medicine 12/09/[address] [facility] 05/30/24 Hr Leader Relationship Specialty [place] [address] [place] [address] PCP - General Pediatrics 10/26/23 Hr Leader Relationship Specialty Start Date End Date Janice Lane MD [address] [place] [address] PCP - General Family Medicine 12/09/[address] [facility] 05/30/24 Hr Leader Relationship Specialty Start Date End Date Janice Lane MD [address] [place] [address] PCP - General Family Medicine 12/09/[address] [facility] 05/30/24 Hr Leader Relationship Specialty [place] [address] [place] [address] PCP - General Pediatrics 10/26/23 Hr Leader Relationship Specialty [place] [address] [place] [address] PCP - General 12/13/19 Nataly Tripathi, VISUAL MERCHANDISER-JEWELRY CASTING MODEL MAKER APPRENTICE [address] [place] [address] Elementary Tutor [facility] 06/16/24 Hr Leader Relationship Specialty [place] [address] [place] [address] PCP - General Pediatrics 10/26/23 Hr Leader Relationship Specialty [place] [address] [place] [address] PCP - General Pediatrics 10/26/23 Hr Leader Relationship Specialty [place] [address] [place] [address] PCP - General Pediatrics 10/26/23 Hr Leader Relationship Specialty [place] [address] [place] [address] PCP - General Pediatrics 10/26/23 Goals (unrecognized [...] BE BASED ON THE PRIMARY CLINICAL RECORDS. [employer] [facility]. provides no warranty or guarantee of the accuracy or completeness of information in this document.
--- NOTE | 2024-10-05 17:34 | US_ITS ---
[place] [id number] Patient Name: CAROL ANN ROMAN MRN: [id number] date: 1985 Sex: F Assigned Patient Location: [facility] Current Patient Location: Accession/Order Number: [id number] Exam Date: 10/05/2024 17:37 Report Date: 10/06/2024 06:28 At the request of: JOHN VERDIN Procedure: US OB BPP w non-stress EXAMINATION: US OB BPP w non-stress HISTORY:SHORT CERVIX AFFECTING O26.879 COMPARISON: Ultrasound OB biophysical 09/28/2024 TECHNIQUE: Ultrasound biophysical profile was performed in the radiology department. BREATHING MOVEMENTS: 2 GROSS BODY MOVEMENTS: 2 TONE: 2 QUALITATIVE AMNIOTIC FLUID VOLUME: 2 PRESENTATION: CEPHALIC HEART RATE: 150.84 bpm AMNIOTIC FLUID VOLUME: 9.86 cm GESTATIONAL AGE: 36 weeks 6 days US/US OB BPP w non-stress IMPRESSION: Total biophysical profile score: 8 Electronically authenticated by: JAYME JACOBS Date: 10/06/2024 06:28
[2024-10-05 17:57] VITALS: BP 110/64; PULSE 89
== END 2024-10-05 18:38 | disposition home or self-care (01) ==
LOC: US 06:27 → FBC 17:29
PROVIDERS: Visit Provider Obstetrics & Gynecology
DX: O26.893 Other specified pregnancy related conditions, third trimester (principal); Z3A.36 36 weeks gestation of pregnancy
CPT/HCPCS: 76818

== ENCOUNTER 2024-10-08 08:34 | Outpatient (OUT) | payer MEDICARE, MEDICAID, SELFPAY ==
--- OUTSIDE RECORDS SUMMARY | 2024-10-08 08:43 | XMS_ITS | CCD ---
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 Deuce [employer]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[employer] 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-[employer] SITE, Nataly Mt Unavailable JANICE LANE Primary Care Unavailable JANICE [...] Attending Unavailable JANICE LANE Primary Care Unavailable KARI WILKINSONET Referring Unavailable JANICE LANE Primary Care Unavailable IBAN LAZO Attending Unavailable JANICE LANE Primary Care Unavailable TOR HERNANDEZ Referring Unavailable JANICE LANE Primary Care Unavailable TOR HERNANDEZ Referring Unavailable GERMANIA WILKINSON Attending Unavailable JANICE LANE Primary Care Unavailable NESHA SANTANA Referring Unavailable TRO HERNANDEZ Attending Unavailable RIMA, JANICE Pérez Primary Care Unavailable SELF Referring Unavailable CHAMP LEON Attending Unavailable JANICE LANE Primary Care Unavailable JANICE LANE Attending Unavailable RIMA, JANICE Pérez Primary Care Unavailable RIMA, JANICE Pérez Referring Unavailable JANICE LANE Primary Care Unavailable GERMANIA WILKINSON Attending Unavailable RIMA, JANICE Pérez Primary Care Unavailable SELF Referring Unavailable IBAN LAZO Attending Unavailable JAHAIRA BYERS Attending Unavailable MARVIN HOWARD Attending Unavailable MARVIN HOWARD Attending Unavailable MARVIN HOWARD Attending Unavailable KELECHI TATUM Attending Unavailable MAYTE, CLARKE Attending Unavailable MAYTE, CLARKE Attending Unavailable MAYTE, CLARKE Attending Unavailable MODESTAJAHAIRA FINK Attending Unavailable MAYTE, CLARKE Attending Unavailable NESHA ZELAYA Attending Unavailable MAYTE, CLARKE Attending Unavailable MAYTE, CLARKE Attending Unavailable MARVNI HOWARD Attending Unavailable MAYTE, CLARKE Attending Unavailable KELECHI TATUM Attending Unavailable JAHAIRA BYERS Attending Unavailable ALEYDA MONTEMAYOR Attending Unavailable MODESTAJAHAIRA FINK Attending Unavailable MAYTE, CLARKE Attending Unavailable MAYTE, CLARKE Attending Unavailable JAHAIRA BYERS Attending Unavailable CLARKE HU Referring Unavailable JANICE LANE [...] Referring Unavailable JANICE LANE Primary Care Unavailable MEL ROBERTS Attending Unavailable JANICE LANE Primary Care Unavailable Unavailable Unavailable Unavailable Allergies Allergy Classification Reported Allergen(s) Allergy Type Date of Onset Reaction(s) Facility Lecithin (1 source) Lecithin Drug Allergy 9 Other: See Comments, Unknown, Itching, GI Upset [facility] Soy (1 source) Soy protein Food Allergy 0 Intolerance [facility] Soybean Lecithin (1 source) Soybean Lecithin Drug Allergy 2 GI Upset, Unknown [facility] Wheat gluten extract (1 source) Wheat gluten extract Drug Allergy 9 Other: See Comments, Hives, Itching [facility] (2 sources) glutenin; Translations: [GLUTEN] Allergy to substance (finding) 9 [facility] Repository (20 sources) Soy protein; Translations: [SOY ALLERGY] Propensity to adverse reactions to drug (disorder) 0 Headache, Unknown [facility] Repository (20 sources) GLUTEN MEAL; Translations: [GLUTEN MEAL] Propensity to adverse reactions to drug (disorder) 9 Hives, Itching, Unknown [facility] Repository (1 source) LECITHIN ORGANIC-SOYBEAN LECITHIN; Translations: [LECITHIN ORGANIC-SOYBEAN LECITHIN] Propensity to adverse reactions to drug (disorder) 9 [facility] Repository (20 sources) Lecithin; Translations: [LECITHIN] Drug Allergy 9 Other: See Comments, Unknown, Itching, GI Upset, Nausea And Vomiting [facility] Work Phone: (20 sources) Soy protein; Translations: [SOY] Drug Intolerance 0 Intolerance [facility] (20 sources) Wheat gluten extract Drug Allergy 9 Other: See Comments, Hives, Itching [facility] (20 sources) Soybean Lecithin; Translations: [LECITHIN, SOY] Drug Allergy 2 GI Upset, Unknown [facility] (20 sources) Other Allergy to substance 0 Headache [facility] (1 source) ALLERGIES NOT ON FILE; Translations: [ALLERGIES NOT ON FILE] Propensity to adverse reactions (disorder) [facility] Medications Current Medications Medication Drug Class(es) Dates Sig (Normalized) Sig (Original) acetaminophen 325 mg oral tablet (13 sources) Start: 01-11-2021 End: 08-08-2022 take 2 tablets by mouth every four hours as needed acetaminophen (TYLENOL) 325 mg tablet Take 2 tablets by mouth every 4 hours as needed. 40 tablet 0 01/11/2021 08/08/2022 Discontinued Comment on above: Take 2 tablets by mo [facility] every 4 hours as needed. amoxicillin [...] Comment on above: Take 1,000 mg by [facility] two times a day. B Complex-C (b [...] Start: 04-09-2019 take 1 capsule by mo [facility] once daily Cholecalciferol (Vitamin D3) (Vitamin D3) 1,000 unit Capsule Active 1000 UNIT PO Daily April 09, 2019 12:00am take 1 tablet by [facility] every week cholecalciferol (Vitamin D3) 1.25 MG (48832 UT) tablet Take 1.25 mg by mouth once a week Active Comment on above: Take 1 capsule by [facility] one time a week. diphenhydrAMINE hydrochloride [...] every week ergocalciferol (Vitamin D-2) 1.25 MG (73866 UT) capsule Take 50,000 Units by mouth once a week. 07/31/2023 Active Start: 08-08-2022 take 1 capsule by [facility] every week ergocalciferol 50,000 unit capsule (VITAMIN D2, DRISDOL) Take 1 capsule by mouth one time a week. 12 capsule 3 08/08/2022 Active Comment on above: Take 1 capsule by [facility] one time a week. ferrous sulfate 325 mg oral tablet (20 sources) Start: 02-13-2023 End: 03-15-2023 take 1 tablet by mouth once daily ferrous sulfate 325 mg (65 mg iron) tablet Indications: Iron deficiency anemia due to chronic blood loss Take 1 tablet by mouth once daily. 30 tablet 1 02/13/2023 03/15/2023 Active take 1 tablet by mouth in the [facility] Ferrous Sulfate (IRON PO) Take 1 tablet by mouth in the morning. Active FERROUS SULFATE ORAL Take by mouth every 24 hours. Active FERROUS SULFATE ORAL Take by mouth every 24 hours. 0 Active take 1 tablet by mouth in the [facility] Ferrous Sulfate (IRON PO) Take 1 tablet by mouth in the morning. 0 Active Comment on above: Take 1 tablet by [facility] once daily. Take by mouth every 24 hours. fluticasone propionate 0.05 mg/actuat metered dose nasal spray (20 sources) Corticosteroid Start: take 1 spray(s) nasal route once daily fluticasone (FLONASE) 50 mcg/actuation nasal spray Use 1 [place] in each nostril once daily. 1 g 5 09/01/2020 Active Comment on above: Use 1 [place] in each nostril once daily. 1 ml [...] 4 MG tablets Indications: MS (multiple sclerosis) ([facility]) Day 1: 6 tablets Day [...] by jose ramon th every 24 hours. Ffodlnfwtqsm-Drka-O olic Acid (1 source) Start: 04-09-2019 take 1 tablet by mouth once daily Multivitamin-Iron- Folic Acid Active 1 TAB Oral Daily April 09, 2019 12:28pm Zcmxxrlnjvrx-Gbnd-Q olic Acid (Multi-Day With Iron) 18-400 mg-mcg Tablet (5 sources) Start: 04-09-2019 take 1 tablet by mouth once daily Multivitamin-Iron- Folic Acid (Multi-Day With Iron) 18-400 mg-mcg Tablet Active 1 TAB PO Daily April 09, 2019 12:28pm Start: 04-09-2019 take 1 tablet by jose ramon th once daily Ekacdzhaxtln-Vftv-Ufmdk Acid (Multi-Day With Iron) 18-400 mg-mcg Tablet Active 1 TAB PO Daily April 09, 2019 12:00am Start: 04-09-2019 take 1 tablet by jose ramon th once daily Qispacdhqcwc-Eiva-Yfcnz Acid (Multi-Day With Iron) 18-400 mg-mcg Tablet [...] 1 Drop (AK-DILATE, SABINA-SYNEPHRINE) polyethylene glycol 3350 50335 mg powder for oral solution (20 sources) Osmotic Laxative Start: 03-30-2024 End: 05-29-2024 polyethylene glycol 3350 (MIRALAX) 17 gram/dose powder Indications: Multiple sclerosis (HCC) , Constipation, unspecified constipation type Take 17 g by mouth once daily. Dissolve dose in 4 - 8 ounces of liquid and take as directed. 510 g 1 03/30/2024 05/29/2024 Active Start: 04-19-2021 End: 08-14-2022 polyethylene glycol 3350 ([place] RALAX) 17 gram/dose powder Indications: Chronic idiopathic [...] ounces of liquid and take as directed. Jmktqorq-Ltp-Ln-FA (Jenliva / ) 1 MG capsule (19 sources) Sscxgmgg-Nvk-Dk-FA (Jenliva /) 1 MG capsule Take by [...] every four to six hours Hydrocodone-Acetami nophen ([place]) 5-325 mg Tablet Discontinued 1 TAB PO [...] Take by mouth once d aily. Mag Tlfkl-R3-Rlulgbmy Rt Xt (6 sources) Vitamin D Start: 04-09-2019 End: 04-02-2022 Mag Djdbu-G0-Pydbgngb Rt Xt Discontinued TABLET April 09, 2019 12:28pm April 02, 2022 5:24pm Start: 04-09-2019 Mag Oxide-D3-T urmeric Rt Xt Active April 09, 2019 12:28pm Start: 04-09-2019 End: 04-02-2022 Mag Aadxn-Q3-Vyhlrxqd Rt Xt Discontinued TABLET April 09, 2019 12:00am April 02, 2022 5:24pm Start: 04-09-2019 End: 04-02-2022 Mag Ukbzx-Q9-Etbzzdfm Rt Xt Discontinued TABLET April 08, 2019 [...] 2019 12:00am April 02, 2022 5:23pm levonorgestrel 0.633982 mg/hr intrauterine system (6 sources) Progestin, Progestin-containing [...] on above: Take 1 capsule by mo [facility] DAILY (6 AM). Magnesium (20 sources) [...] Take 20 mEq by mouth as needed. Atpcyfpp-Ih-Wbm-Fe-FA ( VITAMIN) tab (20 sources) Start: take 1 tablet by mouth once daily Tqslkuhy-Jq-Rkw-Fe- FA ( VITAMIN) tab Indications: Encounter for supervision of normal first in second trimester Take 1 tablet by mouth once daily. 90 tablet 3 2020 Active Comment on above: Take 1 tablet by jose ramon th once daily. 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] Onset: 01-08-2021 Resolved: 01-11-2021 Episodic Other aftercare (2 sources) Surgical follow-up; Translations: [Encounter for follow-up examination after completed treatment for conditions other than malignant neoplasm] 12-11-2023 Episodic Other complications of (20 sources) Poor growth affecting management; Translations: [Maternal care for other known or suspected poor growth, third trimester, not applicable or unspecified] Onset: 12-25-2020 Resolved: 01-11-2021 01-11-2021 Episodic Other complications of (2 sources) care status; Translations: [Maternal care for other known or suspected poor growth, third trimester, not applicable or unspecified] Onset: 10-05-2024 08-17-2024 Episodic Other complications of (7 sources) Multiple sclerosis; Translations: [Diseases of the nervous system complicating , third trimester] Onset: 06-16-2024 08-17-2024 Episodic Other complications of (1 source) Maternal care for other known or suspected poor growth, third trimester, not applicable or unspecified; Translations: [Maternal care for other known or suspected poor growth, third trimester, not applicable or unspecified] Onset: 10-05-2024 Episodic Other complications of (2 sources) Diseases of the nervous system complicating , second trimester; Translations: [Diseases of the nervous system complicating , second trimester (HHS-HCC)] Onset: 06-16-2024 Episodic Other complications of (2 sources) Supervision of elderly primigravida, third trimester; Translations: [Supervision of elderly primigravida, third trimester] Onset: 08-17-2024 Episodic Other complications of (2 sources) Diseases of the nervous system complicating , third trimester; Translations: [Diseases of the nervous system complicating , third trimester (HHS-HCC)] Onset: 08-17-2024 Episodic Other complications of (2 sources) Maternal care for other abnormalities of cervix, third trimester; Translations: [Maternal care for other abnormalities of cervix, third trimester (HHS-HCC)] Onset: 08-17-2024 Episodic Other complications of (2 sources) Cervical shortening, third trimester; Translations: [Cervical shortening, third trimester (HHS-HCC)] Onset: 08-17-2024 Episodic Other connective tissue disease [...] Other nervous system disorders (1 source) 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; Translations: [History of multiple sclerosis] Episodic [...] 09-07-2024 Episodic Residual codes; unclassified (2 sources) Gestation period, 34 weeks; Translations: [34 weeks gestation of ] 09-21-2024 Episodic Residual codes; unclassified (2 sources) Gestation period, 35 weeks; Translations: [35 weeks gestation of ] 09-27-2024 Episodic Residual codes; unclassified (2 sources) Gestation period, 36 weeks; Translations: [36 weeks gestation of ] 10-04-2024 Episodic Residual codes; unclassified (2 sources) 36 weeks gestation of ; Translations: [36 weeks gestation of ([facility])] Onset: 10-05-2024 Episodic Residual codes; unclassified (2 sources) Other specified postprocedural states; Translations: [Other specified postprocedural states] Onset: 08-17-2024 Episodic Unclassified (19 sources) Sleep Efficiency Onset: 03-30-2024 03-30-2024 Unclassified (1 source) Chronic midline low back pain without sciatica; Translations: [Chronic midline low back pain without sciatica] Onset: 03-04-2024 Unclassified (2 sources) MFM Consultation Onset: 06-14-2024 Past or Other Problems Problem Classification Problem [...] and damage, unspecified, not applicable or unspecified ([facility])] Onset: 06-14-2024 Episodic Other complications of [...] Resolved: 01-11-2021 01-11-2021 Episodic Other complications of (7 sources) Short cervical length in ; Translations: [Cervical shortening, third trimester] Onset: 06-16-2024 08-17-2024 Episodic Other complications of (2 sources) Supervision of elderly multigravida, second trimester; Translations: [Supervision of elderly multigravida, second trimester ([facility])] Onset: 06-14-2024 Episodic Other complications of (2 sources) Diseases of the nervous system complicating , unspecified trimester; Translations: [Diseases of the nervous system complicating , unspecified trimester ([facility])] Onset: 06-14-2024 Episodic Other complications of (2 sources) Cervical shortening, second trimester; Translations: [Cervical shortening, second trimester ([facility])] Onset: 06-14-2024 Episodic Other endocrine disorders [...] Interpretation Reference Range Facility No Panel Informationon 11-26 -2024 Interpreted by: Mel Hu Indication ======== Suspected Problem with Growth. History ====== General History Height 168 cm [...] 1 Dating ====== GA by prior assessment 36 w + 6 d ELLIOTT by prior assessment: 10/27/2024 Ultrasound examination on: 10/05/2024 GA by U/S based upon: AC, BPD, Femur, HC GA by U/S 36 w + 0 d ELLIOTT by U/S: 11/02/2024 Assigned: based on stated ELLIOTT, selected on 06/14/2024 Assigned GA 36 w + 6 d Assigned ELLIOTT: 10/27/2024 [...] 29% 288.9 17% 66.8 43% 2268 30% 10/05/2024 36w 6d 89.7 49% 326.4 27% 304.3 6% 70.2 26% 2643 19% Impression ========= Patient here for growth ultrasound in a complicated by multiple sclerosis, AMA, and history of FGR in prior pregnancies - Decreased interval growth with EFW at 19%ile and AC at 7%ile - No malformations on today's limited survey - BPP 06/17, normal amniotic fluid - Normal UA Doppler indices Patient was counseled about today's findings. Maternal, , placental, and constitutional etiologies of FGR were reviewed. Recommend weekly BPP and Dopplers. Delivery is recommended at [id number]-82x0h. Please see note from today for details General Evaluation Cardiac activity present. FHR 142 bpm. movements: visualized. Presentation: cephalic Placenta: Placental site: posterior Umbilical cord: Cord vessels: 3 vessel cord. Insertion site: Suboptimal Amniotic fluid: Amount of AF: normal amount. MVP 4.0 cm. ZEN 10.9 cm. Q1 4.0 cm, Q2 3.7 cm, Q3 2.1 cm, Q4 1.1 cm Biometry Standard BPD 89.7 mm 36w 2d 49% Hadlock OFD 114.7 mm 64% INTERGROWTH-21st HC 326.4 mm 37w 0d 27% Hadlock AC 304.3 mm 34w 3d 6% Hadlock Femur 70.2 mm 36w 0d 26% Hadlock HC / AC 1.07 EFW 2,643 g 35w 2d 19% Hadlock EFW (lb) 5 lb EFW (oz) 13 oz EFW by: Hadlock (JQF-CY-JS-FL) Extended Irrigator Overhead 5.8 mm Head / Face / Neck Cephalic index 0.78 16% Nicolaides Extremities / Bony Struc FL / BPD 0.78 FL / HC 0.22 FL / AC 0.23 Other Structures FHR 142 bpm Anatomy Cranium: Normal Lateral ventricles: Normal Midline falx: Normal Cavum septi pellucidi: Normal Cerebellum: Normal Cisterna magna: Normal Head / Neck Rt lateral ventricle: Normal Lt lateral ventricle: Normal Thalami: Normal Cerebellar lobes: suboptimal 4-chamber view: Normal RVOT view: documented previously LVOT view: documented previously 3-vessel view: Normal Heart / Thorax Situs: situs solitus (normal) Aortic arch view: suboptimal Cardiac position: levocardia (normal) Cardiac axis: Normal Cardiac proportions: proportioned (normal) Cardiac rhythm: regular (normal) Diaphragm: Normal Stomach: Normal Kidneys: Normal Bladder: visualized Abdomen Stomach: correct situs Rt kidney: Normal Lt kidney: Normal Large bowel: Normal sex: male Wants to know sex: yes Doppler Arterial Umbilical A PI 0.91 50% Radha Umbilical A RI 0.60 56% Radha Biophysical Profile 2: breathing movements 2: Gross body movements 2: tone 2: Amniotic fluid volume 06/17 Biophysical profile score Method ====== Transabdominal ultrasound examination. View: Suboptimal view: limited by late gestational age Indication ======== Suspected Problem with Growth. History ====== General History Height 168 cm Height (ft) 5 ft Height (in) 6 in Previous Outcomes 2 Para 1 Children born living ?37w 1 Pregnancies delivered at term (T) 1 Living children (L) 1 Other: Vaginal Delivery Maternal Assessment Height 168 cm Height (ft) 5 ft Height (in) 6 in Weight 59 kg Weight (lb) 131 lb Weight gain 0 kg Weight ga (more content not included)... [facility] Mel Roberts MD - 10/05/2024 Interpreted by: Mel Roberts Indication ======== Suspected Problem with Growth. History ====== General History Vuxnbg705 cm Height (ft)5 ft Height (in)6 in Previous Outcomes Gravida2 Para1 Children born living ?37w1 Pregnancies delivered at term (T)1 Living children (L)1 Other:Vaginal Delivery Maternal Assessment Iobwpa386 cm Height (ft)5 ft Height (in)6 in Mjoqmh13 kg Weight (lb)131 lb Weight gain0 kg Weight gain (lb)0 lb BMI21.14 kg/m Physical Exam Initial weight (lb)131 lb ========= Tony . Number of fetuses: 1 Dating ====== GA by prior avazcdefoy10 w + 6 d ELLIOTT by prior assessment:10/27/2024 Ultrasound examination on:10/05/2024 GA by U/S based upon:AC, BPD, Femur, HC GA by U/S36 w + 0 d ELLIOTT by U/S:11/02/2024 Assigned:based on stated ELLIOTT, selected on 06/14/2024 Assigned GA36 w + 6 d Assigned ELLIOTT:10/27/2024 Growth [...] 29% 288.9 17% 66.8 43% 2268 30% 10/05/2024 36w 6d 89.7 49% 326.4 27% 304.3 6% 70.2 26% 2643 19% Impression ========= Patient here for growth ultrasound in a complicated by multiple sclerosis, AMA, and history of FGR in prior pregnancies - Decreased interval growth with EFW at 19%ile and AC at 7%ile - No malformations on today's limited survey - BPP 06/17, normal amniotic fluid - Normal UA Doppler indices Patient was counseled about today's findings. Maternal, , placental, and constitutional etiologies of FGR were reviewed. Recommend weekly BPP and Dopplers. Delivery is recommended at [id number]-[id number]. Please see note from today for details General Evaluation Cardiac activity present. FHR 142 bpm. movements: visualized. Presentation: cephalic Placenta: Placental site: posterior Umbilical cord: Cord vessels: 3 vessel cord. Insertion site: Suboptimal Amniotic fluid: Amount of AF: normal amount. MVP 4.0 cm. ZEN 10.9 cm. Q1 4.0 cm, Q2 3.7 cm, Q3 2.1 cm, Q4 1.1 cm Biometry Standard BPD89.7 mm36w 2d 49% Hadlock UNE647.7 mm 64% INTERGROWTH-21st HC326.4 mm37w 0d 27% Hadlock AC304.3 mm34w 3d 6% Hadlock Femur70.2 mm36w 0d 26% Hadlock HC / AC1.07 EFW2,643 g35w 2d 19% Hadlock EFW (lb)5 lb EFW (oz)13 oz EFW by:Hadlock (YLR-EU-AG-FL) Extended Vp5.8 mm Head / Face / Neck Cephalic index0.78 16% Nicolaides Extremities / Bony Struc FL / BPD0.78 FL / HC0.22 FL / AC0.23 Other Structures [id number] bpm Anatomy Cranium:Normal Lateral ventricles:Normal Midline falx:Normal Cavum septi pellucidi:Normal Cerebellum:Normal Cisterna magna:Normal Head / Neck Rt lateral ventricle:Normal Lt lateral ventricle:Normal Thalami:Normal Cerebellar lobes:suboptimal 4-chamber view:Normal RVOT view:documented previously LVOT view:documented previously 3-vessel view:Normal Heart / Thorax Situs:situs solitus (normal) Aortic arch view:suboptimal Cardiac position:levocardia (normal) Cardiac axis:Normal Cardiac proportions:proportioned (normal) Cardiac rhythm:regular (normal) Diaphragm:Normal Stomach:Normal Kidneys:Normal Bladder:visualized Abdomen Stomach:correct situs Rt kidney:Normal Lt kidney:Normal Large bowel:Normal sex:male Wants to know sex:yes Doppler Arterial Umbilical A PI0.91 50% Radha Umbilical A RI0.60 56% Radha Biophysical Profile 2: breathing movements 2: Gross body movements 2: tone 2: Amniotic fluid volume 06/17 Biophysical profile score Method ====== Transabdominal ultrasound examination. View: Suboptimal view: limited by late gestational age Indication ======== Suspected Problem with Growth. History ====== General History Bmants972 cm Height (ft)5 ft Height (in)6 in Previous Outcomes Gravida2 Para1 Children born living ?37w1 Pregnancies delivered at term (T)1 Living children (L)1 Other:Vaginal Delivery Maternal Assessment Muggcv598 cm Height (ft)5 ft Height (in)6 in Ipfdqc67 kg Weight (lb)131 lb Weight gain0 kg Weight gain (lb)0 lb BMI21.14 kg/m Physical Exam Initial weight (lb)131 lb ========= Tony . Number of fetuses: 1 Dating ====== GA by prior qtpesasrlo39 w + 6 d ELLIOTT by prior assessment:10/27/2024 Ultrasound examination on:10/05/2024 GA by U/S based upon:AC, BPD, Femur, HC GA by U/S36 w + 0 d ELLIOTT by U/S:11/02/2024 Assigned:based on stated ELLIOTT, selected on 06/14/2024 Assigned GA (more content not included)... [facility] Work Phone: [facility] Work Phone: Radiology Study observation (narrative) [facility] Work Phone: US BIOPHYSICAL PROFILE WO NON STRESS TESTINGon 10-05-2024 US BIOPHYSICAL PROFILE WO NON STRESS TESTING Interpreted by: Mel Roberts Indication ======== Suspected Problem with Growth. History ====== General History Height 168 cm [...] Exam Initial weight (lb) 131 lb ========= Tnoy . Number of fetuses: 1 Dating ====== GA by prior assessment 36 w + 6 d ELLIOTT by prior assessment: 10/27/2024 Ultrasound examination on: 10/05/2024 GA by U/S based upon: AC, BPD, Femur, HC GA by U/S 36 w + 0 d ELLIOTT by U/S: 11/02/2024 Assigned: based on stated ELLIOTT, selected on 06/14/2024 Assigned GA 36 w + 6 d Assigned ELLIOTT: 10/27/2024 [...] 29% 288.9 17% 66.8 43% 2268 30% 10/05/2024 36w 6d 89.7 49% 326.4 27% 304.3 6% 70.2 26% 2643 19% Impression ========= Patient here for growth ultrasound in a complicated by multiple sclerosis, AMA, and history of FGR in prior pregnancies - Decreased interval growth with EFW at 19%ile and AC at 7%ile - No malformations on today's limited survey - BPP 06/17, normal amniotic fluid - Normal UA Doppler indices Patient was counseled about today's findings. Maternal, , placental, and constitutional etiologies of FGR were reviewed. Recommend weekly BPP and Dopplers. Delivery is recommended at [id number]. Please see note from today for details General Evaluation Cardiac activity present. FHR 142 bpm. movements: visualized. Presentation: cephalic Placenta: Placental site: posterior Umbilical cord: Cord vessels: 3 vessel cord. Insertion site: Suboptimal Amniotic fluid: Amount of AF: normal amount. MVP 4.0 cm. ZEN 10.9 cm. Q1 4.0 cm, Q2 3.7 cm, Q3 2.1 cm, Q4 1.1 cm Biometry Standard BPD 89.7 mm 36w 2d 49% Hadlock OFD 114.7 mm 64% INTERGROWTH-21st HC 326.4 mm 37w 0d 27% Hadlock AC 304.3 mm 34w 3d 6% Hadlock Femur 70.2 mm 36w 0d 26% Hadlock HC / AC 1.07 EFW 2,643 g 35w 2d 19% Hadlock EFW (lb) 5 lb EFW (oz) 13 oz EFW by: Hadlock (PMC-LB-TQ-FL) Extended Irrigator Overhead 5.8 mm Head / Face / Neck Cephalic index 0.78 16% Nicolaides Extremities / Bony Struc FL / BPD 0.78 FL / HC 0.22 FL / AC 0.23 Other Structures FHR 142 bpm Anatomy Cranium: Normal Lateral ventricles: Normal Midline falx: Normal Cavum septi pellucidi: Normal Cerebellum: Normal Cisterna magna: Normal Head / Neck Rt lateral ventricle: Normal Lt lateral ventricle: Normal Thalami: Normal Cerebellar lobes: suboptimal 4-chamber view: Normal RVOT view: documented previously LVOT view: documented previously 3-vessel view: Normal Heart / Thorax Situs: situs solitus (normal) Aortic arch view: suboptimal Cardiac position: levocardia (normal) Cardiac axis: Normal Cardiac proportions: proportioned (normal) Cardiac rhythm: regular (normal) Diaphragm: Normal Stomach: Normal Kidneys: Normal Bladder: visualized Abdomen Stomach: correct situs Rt kidney: Normal Lt kidney: Normal Large bowel: Normal sex: male Wants to know sex: yes Doppler Arterial Umbilical A PI 0.91 50% Radha Umbilical A RI 0.60 56% Radha Biophysical Profile 2: breathing movements 2: Gross body movements 2: tone 2: Amniotic fluid volume 8/8 Biophysical profile score Method ====== Transabdominal ultrasound examination. View: Suboptimal view: limited by late gestational age Indication ======== Suspected Problem with Growth. History ====== General History Height 168 cm [...] 1 Dating ====== GA by prior assessment 36 w + 6 d ELLIOTT by prior assessment: 10/27/2024 Ultrasound examination on: 10/05/2024 GA by U/S based upon: AC, BPD, Femur, HC GA by U/S 36 w + 0 d ELLIOTT by U/S: 11/02/2024 Assigned: based on stated ELLIOTT, selected on 06/14/2024 Assigned GA 36 w + (more content not included)... [facility] US OB FOLLOW UP TRANSABDOMIN AL APPROACHon 10-05-2024 US OB FOLLOW UP TRANSABDOMINAL APPROACH Interpreted by: Mel Roberts Indication ======== Suspected Problem with Growth. History ====== General History Height 168 cm [...] 1 Dating ====== GA by prior assessment 36 w + 6 d ELLIOTT by prior assessment: 10/27/2024 Ultrasound examination on: 10/05/2024 GA by U/S based upon: AC, BPD, Femur, HC GA by U/S 36 w + 0 d ELLIOTT by U/S: 11/02/2024 Assigned: based on stated ELLIOTT, selected on 06/14/2024 Assigned GA 36 w + 6 d Assigned ELLIOTT: 10/27/2024 [...] 29% 288.9 17% 66.8 43% 2268 30% 10/05/2024 36w 6d 89.7 49% 326.4 27% 304.3 6% 70.2 26% 2643 19% Impression ========= Patient here for growth ultrasound in a complicated by multiple sclerosis, AMA, and history of FGR in prior pregnancies - Decreased interval growth with EFW at 19%ile and AC at 7%ile - No malformations on today's limited survey - BPP 06/17, normal amniotic fluid - Normal UA Doppler indices Patient was counseled about today's findings. Maternal, , placental, and constitutional etiologies of FGR were reviewed. Recommend weekly BPP and Dopplers. Delivery is recommended at [id number]-64l2c. Please see note from today for details General Evaluation Cardiac activity present. FHR 142 bpm. movements: visualized. Presentation: cephalic Placenta: Placental site: posterior Umbilical cord: Cord vessels: 3 vessel cord. Insertion site: Suboptimal Amniotic fluid: Amount of AF: normal amount. MVP 4.0 cm. ZEN 10.9 cm. Q1 4.0 cm, Q2 3.7 cm, Q3 2.1 cm, Q4 1.1 cm Biometry Standard BPD 89.7 mm 36w 2d 49% Hadlock OFD 114.7 mm 64% INTERGROWTH-21st HC 326.4 mm 37w 0d 27% Hadlock AC 304.3 mm 34w 3d 6% Hadlock Femur 70.2 mm 36w 0d 26% Hadlock HC / AC 1.07 EFW 2,643 g 35w 2d 19% Hadlock EFW (lb) 5 lb EFW (oz) 13 oz EFW by: Hadlock ([id number]-RH-[id number]-FL) Extended Irrigator Overhead 5.8 mm Head / Face / Neck Cephalic index 0.78 16% Nicolaides Extremities / Bony Struc FL / BPD 0.78 FL / HC 0.22 FL / AC 0.23 Other Structures FHR 142 bpm Anatomy Cranium: Normal Lateral ventricles: Normal Midline falx: Normal Cavum septi pellucidi: Normal Cerebellum: Normal Cisterna magna: Normal Head / Neck Rt lateral ventricle: Normal Lt lateral ventricle: Normal Thalami: Normal Cerebellar lobes: suboptimal 4-chamber view: Normal RVOT view: documented previously LVOT view: documented previously 3-vessel view: Normal Heart / Thorax Situs: situs solitus (normal) Aortic arch view: suboptimal Cardiac position: levocardia (normal) Cardiac axis: Normal Cardiac proportions: proportioned (normal) Cardiac rhythm: regular (normal) Diaphragm: Normal Stomach: Normal Kidneys: Normal Bladder: visualized Abdomen Stomach: correct situs Rt kidney: Normal Lt kidney: Normal Large bowel: Normal sex: male Wants to know sex: yes Doppler Arterial Umbilical A PI 0.91 50% Radha Umbilical A RI 0.60 56% Radha Biophysical Profile 2: breathing movements 2: Gross body movements 2: tone 2: Amniotic fluid volume 8/8 Biophysical profile score Method ====== Transabdominal ultrasound examination. View: Suboptimal view: limited by late gestational age Indication ======== Suspected Problem with Growth. History ====== General History Height 168 cm [...] 1 Dating ====== GA by prior assessment 36 w + 6 d ELLIOTT by prior assessment: 10/27/2024 Ultrasound examination on: 10/05/2024 GA by U/S based upon: AC, BPD, Femur, HC GA by U/S 36 w + 0 d ELLIOTT by U/S: 11/02/2024 Assigned: based on stated ELLIOTT, selected on 06/14/2024 Assigned GA 36 w + (more content not included)... [facility] US UMBILICAL ARTERY DOPPLERo n 10-05-2024 US UMBILICAL ARTERY DOPPLER Interpreted by: Mel Roberts Indication ======== Suspected Problem with Growth. History ====== General History Height 168 cm [...] 1 Dating ====== GA by prior assessment 36 w + 6 d ELLIOTT by prior assessment: 10/27/2024 Ultrasound examination on: 10/05/2024 GA by U/S based upon: AC, BPD, Femur, HC GA by U/S 36 w + 0 d ELLIOTT by U/S: 11/02/2024 Assigned: based on stated ELLIOTT, selected on 06/14/2024 Assigned GA 36 w + 6 d Assigned ELLIOTT: 10/27/2024 [...] 29% 288.9 17% 66.8 43% 2268 30% 10/05/2024 36w 6d 89.7 49% 326.4 27% 304.3 6% 70.2 26% 2643 19% Impression ========= Patient here for growth ultrasound in a complicated by multiple sclerosis, AMA, and history of FGR in prior pregnancies - Decreased interval growth with EFW at 19%ile and AC at 7%ile - No malformations on today's limited survey - BPP 06/17, normal amniotic fluid - Normal UA Doppler indices Patient was counseled about today's findings. Maternal, , placental, and constitutional etiologies of FGR were reviewed. Recommend weekly BPP and Dopplers. Delivery is recommended at [id number]-77s4f. Please see note from today for details General Evaluation Cardiac activity present. FHR 142 bpm. movements: visualized. Presentation: cephalic Placenta: Placental site: posterior Umbilical cord: Cord vessels: 3 vessel cord. Insertion site: Suboptimal Amniotic fluid: Amount of AF: normal amount. MVP 4.0 cm. ZEN 10.9 cm. Q1 4.0 cm, Q2 3.7 cm, Q3 2.1 cm, Q4 1.1 cm Biometry Standard BPD 89.7 mm 36w 2d 49% Hadlock OFD 114.7 mm 64% INTERGROWTH-21st HC 326.4 mm 37w 0d 27% Hadlock AC 304.3 mm 34w 3d 6% Hadlock Femur 70.2 mm 36w 0d 26% Hadlock HC / AC 1.07 EFW 2,643 g 35w 2d 19% Hadlock EFW (lb) 5 lb EFW (oz) 13 oz EFW by: Hadlock ([id number]-[id number]-FL) Extended Irrigator Overhead 5.8 mm Head / Face / Neck Cephalic index 0.78 16% Nicolaides Extremities / Bony Struc FL / BPD 0.78 FL / HC 0.22 FL / AC 0.23 Other Structures FHR 142 bpm Anatomy Cranium: Normal Lateral ventricles: Normal Midline falx: Normal Cavum septi pellucidi: Normal Cerebellum: Normal Cisterna magna: Normal Head / Neck Rt lateral ventricle: Normal Lt lateral ventricle: Normal Thalami: Normal Cerebellar lobes: suboptimal 4-chamber view: Normal RVOT view: documented previously LVOT view: documented previously 3-vessel view: Normal Heart / Thorax Situs: situs solitus (normal) Aortic arch view: suboptimal Cardiac position: levocardia (normal) Cardiac axis: Normal Cardiac proportions: proportioned (normal) Cardiac rhythm: regular (normal) Diaphragm: Normal Stomach: Normal Kidneys: Normal Bladder: visualized Abdomen Stomach: correct situs Rt kidney: Normal Lt kidney: Normal Large bowel: Normal sex: male Wants to know sex: yes Doppler Arterial Umbilical A PI 0.91 50% Radha Umbilical A RI 0.60 56% Radha Biophysical Profile 2: breathing movements 2: Gross body movements 2: tone 2: Amniotic fluid volume 8/8 Biophysical profile score Method ====== Transabdominal ultrasound examination. View: Suboptimal view: limited by late gestational age Indication ======== Suspected Problem with Growth. History ====== General History Height 168 cm [...] 1 Dating ====== GA by prior assessment 36 w + 6 d ELLIOTT by prior assessment: 10/27/2024 Ultrasound examination on: 10/05/2024 GA by U/S based upon: AC, BPD, Femur, HC GA by U/S 36 w + 0 d ELLIOTT by U/S: 11/02/2024 Assigned: based on stated ELLIOTT, selected on 06/14/2024 Assigned GA 36 w + (more content not included)... Normal [facility] Urinalysis macro (dipstick) panel (U)on 10-04-2024 Bilirubin, UA Negative Negative - 4(70) +++ mg/dL [facility] Blood, UA Positive Negative - 50 Delbert/mcL [facility] Comment on above: trace-intact Clarity, UA Clear [facility] Color, UA Yellow [facility] Glucose, UA Negative Negative - 1999(110) ++++ mg/dL [facility] Interpretation and review of laboratory results Abnormal [facility] Ketones, UA Negative Negative - 160(16) ++++ mg/dL [facility] Leukocytes, UA Positive Negative - 500+++ Baltazar/mcL [facility] Comment on above: small Nitrite, UA Negative Negative - Positive [facility] pH, UA 6 5 - 9 [facility] Protein, UA Trace Negative - 1999(20) ++++ mg/dL [facility] Spec Grav, UA 1.03 1 - 1.03 [facility] Urobilinogen, UA 0.2 0.2 - 12 mg/dL [facility] Urinalysis macro (dipstick) panel (U)on 09-27-2024 Bilirubin, UA Negative Negative - 4(70) +++ mg/dL [facility] Blood, UA Negative Negative - 50 Delbert/mcL [facility] Clarity, UA Clear [facility] Color, UA Yellow [facility] Glucose, UA Negative Negative - 2000(110) ++++ mg/dL [facility] Interpretation and review of laboratory results Normal [facility] Ketones, UA Negative Negative - 160(16) ++++ mg/dL [facility] Leukocytes, UA Negative Negative - 500+++ Baltazar/mcL [facility] Nitrite, UA Negative Negative - Positive [facility] pH, UA 5.5 5 - 9 [facility] Protein, UA Negative Negative - 1999(20) ++++ mg/dL [facility] Spec Grav, UA 1.02 1 - 1.03 [facility] Urobilinogen, UA 1.0 0.2 - 12 mg/dL [facility] CNTHERAPYon 09-21-2024 CNTHERAPY OT/PT/Speech Visit (LOPTRM) ----- CAROL ANN MARTINEZ ([id number]) 1985 F Date Time Provider Department 09/21/24 9:45 AM ESTRELLA SORTO Date Time Provider Department [place] 09/21/2024 9:45 AM [id number] SORTO Reason for Visit: Physical Therapy [503] [...] (FLONASE) 50 mcg/actuation nasal spray Use 1 [place] in each nostril once daily. Monument Letterer: Therapy (PT/OT/Speech/Resp) ID: [id number] 09/21/2024 10:16 AM Author: ESTRELLA SORTO Signed by ESTRELLA SORTO PT, DPT on 09/21/2024 at 10:16 AM Document text: Program_ID:[id number] Access Code: [email or web address] URL: [email or web address] Date: 09-21-2024 Prepared By: Estrella Sorto Program [...] sets - 10 reps Normal [facility] THERAPY NTon 09-21-2024 THERAPY NT HNO ID: [id number] Author: ESTRELLA SORTO, PT, DPT Service: ? Author Type: Physical Therapist Type: Therapy (PT/OT/Speech/Resp) Filed: 09/21/2024 10:16 Note Text: Program_ID:[id number] Access Code: [email or web address] URL: [email or web address] Date: 09-21-2024 Prepared By: Estrella Sorto [...] sets - 10 reps Normal [facility] Urinalysis macro (dipstick) panel (U)on 09-21-2024 Bilirubin, UA Negative Negative - 4(70) +++ mg/dL [facility] Blood, UA Negative Negative - 50 Delbert/mcL [facility] Clarity, UA Clear [facility] Color, UA Yellow [facility] Glucose, UA Negative Negative - 1999(110) ++++ mg/dL [facility] Interpretation and review of laboratory results Abnormal [facility] Ketones, UA Negative Negative - 160(16) ++++ mg/dL [facility] Leukocytes, UA Trace Negative - 500+++ Baltazar/mcL [facility] Nitrite, UA Negative Negative - Positive [facility] pH, UA 7 5 - 9 [facility] Protein, UA Negative Negative - 1999(20) ++++ mg/dL [facility] Spec Grav, UA 1.02 1 - 1.03 [facility] Urobilinogen, UA 0.2 0.2 - 12 mg/dL [facility] US OB FOLLOW UP TRANSABDOMIN [...] EFW (oz) 0 oz EFW by: Hadlock ([id number]-[id number]-FL) Extended Irrigator Overhead 1.6 mm Head / Face / Neck [...] view: limited by late gestational age Normal [facility] Urinalysis macro (dipstick) panel (U)on 09-07-2024 Bilirubin, UA Negative Negative - 4(70) +++ mg/dL [facility] Blood, UA Negative Negative - 50 Delbert/mcL [facility] Clarity, UA Clear [facility] Color, UA Yellow [facility] Glucose, UA Negative Negative - 2000(110) ++++ mg/dL [facility] Interpretation and review of laboratory results Abnormal [facility] Ketones, UA Negative Negative - 160(16) ++++ mg/dL [facility] Leukocytes, UA Trace Negative - 500+++ Baltazar/mcL [facility] Nitrite, UA Negative Negative - Positive [facility] pH, UA 7 5 - 9 [facility] Protein, UA Negative Negative - 1999(20) ++++ mg/dL [facility] Spec Grav, UA 1.02 1 - 1.03 [facility] Urobilinogen, UA 0.2 0.2 - 12 mg/dL [facility] [id number] 09-03-2024 [id number] HNO ID: [id number] Author: ESTRELLA SORTO PT, DPT Service: ? Author Type: Physical Therapist Type: [id number] Filed: 09/03/2024 11:25 Note Text: [facility] Physical Therapy Plan of Care Certification Patient Name: Carol Ann Martinez : 1985 [facility] #: [id number] Date: 09/03/2024 To: Janice Lane MD From [...] Goals for Episode of Care: established 09/03/24 Teller in home exercise program. Patient will decrease [...] Planned: 4 Planned Treatment Interventions: Therapeutic exercise (03817), Neuromuscular re-education (20331), Manual therapy (85518), Therapeutic activities (05099), Self-half-way management (07891), Gait Training (34952), Patient/Family/Caregiver Education PLAN FOR NEXT VISIT: Continue with hip strength as tolerated, introduce PPT. Patient demonstrates good understanding of plan of care and treatment. The above goals and plan of care were discussed and agreed upon by patient/family. For further details regarding this patient refer to the Physical Therapy electronically documented visit dated 09/03/2024. Provider Attestation I have reviewed the treatment plan for Annettezayda Beto Martinez, [facility]# [id number] for the period of 09/03/24 -- 11/02/24, established on 09/03/2024. Signature certifies the need for therapy services. Normal [facility] CNTHERAPYon 09-03-2024 CNTHERAPY OT/PT/Speech Visit (LOPTRM) ----- MARTINEZCAROL ANN GREWAL ([id number]) 1985 F Date Time Provider Department 09/03/24 8:45 AM ESTRELLA SORTO Date Time Provider Department Center 09/03/2024 8:45 AM [id number] SORTO Reason for Visit: PT Eval [747] [...] (FLONASE) 50 mcg/actuation nasal spray Use 1 [place] in each nostril once daily. Monument Letterer: Therapy (PT/OT/Speech/Resp) ID: [id number] 09/03/2024 9:22 AM Author: ESTRELLA SORTO Signed by ESTRELLA SORTO PT, DPT on 09/03/2024 at 9:22 AM Document text: Program_ID:[id number] Access Code: [email or web address] URL: [email or web address] Date: 09-03-2024 Prepared By: Estrella Sorto Program Notes Exercises - Seated Hip Adduction Isometrics with Ball - 1-3 x daily - 7 x weekly - 2-3 sets - 10 reps - Seated Hip Abduction with Resistance - 1-3 x daily - 7 x weekly - 2-3 sets - 10 reps Normal [facility] THERAPY NTon 09-03-2024 THERAPY NT HNO ID: [id number] Author: ESTRELLA SORTO, PT, DPT Service: ? Author Type: Physical Therapist Type: Therapy (PT/OT/Speech/Resp) Filed: 09/03/2024 09:22 Note Text: Program_ID:[id number] Access Code: [email or web address] URL: [email or web address] Date: 09-03-2024 Prepared By: Estrella Sorto Program Notes Exercises - Seated Hip Adduction Isometrics with Ball - 1-3 x daily - 7 x weekly - 2-3 sets - 10 reps - Seated Hip Abduction with Resistance - 1-3 x daily - 7 x weekly - 2-3 sets - 10 reps Normal [facility] Urinalysis macro (dipstick) panel (U)on 08-24-2024 Bilirubin, UA Negative Negative - 4(70) +++ mg/dL [facility] Blood, UA Negative Negative - 50 Delbert/mcL [facility] Clarity, UA Clear [facility] Color, UA Yellow [facility] Glucose, UA Negative Negative - 1999(110) ++++ mg/dL [facility] Interpretation and review of laboratory results Normal [facility] Ketones, UA Negative Negative - 160(16) ++++ mg/dL [facility] Leukocytes, UA Negative Negative - 500+++ Baltazar/mcL [facility] Nitrite, UA Negative Negative - Positive [facility] pH, UA 6.5 5 - 9 [facility] Protein, UA Negative Negative - 1999(20) ++++ mg/dL [facility] Spec Grav, UA 1.025 1 - 1.03 [facility] Urobilinogen, UA 0.2 0.2 - 12 mg/dL [facility] No Panel Informationon 08-17 Interpreted by: Marina [...] care of your patient Follow-up ======== Per [facility] visit to follow, plan for serial [...] EFW (oz) 4 oz EFW by: Hadlock ([id number]) Extended Irrigator Overhead 3.4 mm Head / Face / Neck [...] Disorder, Cervical Shortening. History ====== General History Gxhsqw757 cm Height (ft)5 ft Height (in)6 in Previous Outcomes Gravida2 Para1 Children born living ?37w1 Pregnancies delivered at term (T)1 Living children (L)1 Other:Vaginal Delivery Maternal Assessment Lxdxjd377 cm Height (ft)5 ft Height (in)6 in Xmfyjz85 kg Weight (lb)131 lb Weight gain0 kg Weight gain (lb)0 lb BMI21.14 kg/m Physical Exam Initial weight (lb)131 lb ========= Tony . Number of fetuses: 1 Dating ====== GA by prior [id number] w + 6 d ELLIOTT by prior [...] (lb)3 lb EFW (oz)4 oz EFW by:Hadlock (WVQ-[id number]-FL) Extended Vp3.4 mm Head / Face / Neck Cephalic index0.77 24% Nicolaides Extremities / Bony Struc FL / BPD0.75 FL / HC0.20 FL / AC0.22 Other Structures FKU956 bpm Anatomy Cranium:Normal Lateral ventricles:Normal Midline falx:Normal [...] Disorder, Cervical Shortening. History ====== General History Ukakmw669 cm Height (ft)5 ft Height (in)6 in Previous Outcomes Gravida2 Para1 Children born living ?37w1 Pregnancies delivered at term (T)1 Living children (L)1 Other:Vaginal Delivery Maternal Assessment Xnbccz108 cm Height (ft)5 ft Height (in)6 in Indrmf76 kg Weight (lb)131 lb Weight gain0 kg Weight gain (lb)0 lb BMI21.14 kg/m Physical Exam Initial weight (lb)131 lb ========= Tony . Number of fetuses: 1 Dating ====== GA by prior [id number] w + 6 d ELLIOTT by prior [...] participate in the (more content not included)... [facility] Work Phone: Radiology Study observation (narrative) [facility] Work Phone: No Panel InformationOrdered By: Marina Ordoñez on 08-17-2024 [facility] Work Phone: POCT UA Automated manually r esultedon 08-17-2024 Appearance (U) Clear Clear [facility] Work Phone: Glucose Test strip (U) [Mass/Vol] Negative NEGATIVE mg/dl [facility] Work Phone: Hemoglobin Ql (U) Negative NEGATIVE [facility] Work Phone: Interpretation and review of laboratory results Normal [facility] Work Phone: Leukocyte esterase Test strip Ql (U) Negative NEGATIVE [facility] Work Phone: Nitrite Ql (U) Negative NEGATIVE [facility] Work Phone: [phone] pH (U) 7.0 [pH] No Reference Range Established [facility] Work Phone: POC Bilirubin, Urine Negative NEGATIVE [facility] Work [facility]: POC Color, Urine Yellow Straw, Yellow, Light-Yellow [facility] Work Phone: POC Ketones, Urine Negative NEGATIVE mg/dl [facility] Work Phone: [phone] POC Protein, Urine Negative NEGATIVE, 30 (1+) mg/dl [facility] Work Phone: POC Specific [place], Urine 1.025 1.005 - 1.035 [facility] Work Phone: POC Urobilinogen, Urine 0.2 0.2, 1.0 EU/DL [facility] Work Phone: [facility] Work Phone: US BIOPHYSICAL PROFILE WO NON [...] care of your patient Follow-up ======== Per [facility] visit to follow, plan for serial [...] EFW (oz) 4 oz EFW by: Hadlock ([id number]-FL) Extended Irrigator Overhead 3.4 mm Head / Face / Neck [...] care of yo (more content not included)... [facility] US OB FOLLOW UP TRANSABDOMIN AL [...] Exam Initial weight (lb) 131 lb ========= Otny . Number of fetuses: 1 Dating ====== [...] care of your patient Follow-up ======== Per [facility] visit to follow, plan for serial [...] EFW (oz) 4 oz EFW by: Hadlock ([id number]-FL) Extended Irrigator Overhead 3.4 mm Head / Face / Neck [...] of yo (more content not included)... Normal [facility] Urinalysis macro (dipstick) panel (U)on 08-10-2024 Bilirubin, UA Negative Negative - 4(70) +++ mg/dL [facility] Blood, UA Negative Negative - 50 Delbert/mcL [facility] Clarity, UA Clear [facility] Color, UA Yellow [facility] Glucose, UA Negative Negative - 1999(110) ++++ mg/dL [facility] Interpretation and review of laboratory results Normal [facility] Ketones, UA Negative Negative - 160(16) ++++ mg/dL [facility] Leukocytes, UA Negative Negative - 500+++ Baltazar/mcL [facility] Nitrite, UA Negative Negative - Positive [facility] pH, UA 5.5 5 - 9 [facility] Protein, UA Negative Negative - 1999(20) ++++ mg/dL [facility] Spec Grav, UA 1.015 1 - 1.03 [facility] Urobilinogen, UA 1.0 0.2 - 12 mg/dL [facility] CBC W Auto Differential pane l (Bld)on 07-19-2024 Basophils (Bld) [#/Vol] 0.05 10*3/uL Normal <0.11 [facility] Comment on above: Order Comment: Speci men Type: BLOOD SPECIMENOrdering Facility: [facility] Address: [address] [place] [address] Performed By: #### 5 7021-8 ####[facility] [id number] [place] [address] [place] Basophils/100 WBC (Bld) 0.6 % Normal [facility] Comment on above: Order Comment: Speci men Type: BLOOD SPECIMENOrdering Facility: [facility] Address: [address] [place] [address] Performed By: #### 5 7021-8 ####[facility] [id number] [place] [address] [place] Differential cell count method Nom (Bld) Auto Normal [facility] Comment on above: Order Comment: Speci men Type: BLOOD SPECIMENOrdering Facility: [facility] Address: [address] [place] [address] Performed By: #### 5 7021-8 ####[facility] [id number] [place] [address] [place] Eosinophils (Bld) [#/Vol] 0.10 10*3/uL Normal <0.46 [facility] [place] Comment on above: Order Comment: Speci men Type: BLOOD SPECIMENOrdering Facility: [facility] Address: [address] [place] [address] Performed By: #### 5 7021-8 ####[facility] [id number] [place] [address] [place] Eosinophils/100 WBC (Bld) 1.2 % Normal [facility] [place] Comment on above: Order Comment: Speci men Type: BLOOD SPECIMENOrdering Facility: [facility] Address: [address] [place] [address] Performed By: #### 5 7021-8 ####[facility] [id number] [place] [address] [place] Erythrocyte distribution width (RBC) [Ratio] 14.7 % Normal 11.5-15.0 [facility] [place] Comment on above: Order Comment: Speci men Type: BLOOD SPECIMENOrdering Facility: [facility] Address: [address] [place] [address] Performed By: #### 5 7021-8 ####[facility] [id number] [place] [address] [place] Hematocrit (Bld) [Volume fraction] 39.3 % Normal 36.0-46.0 [facility] [place] Comment on above: Order Comment: Speci men Type: BLOOD SPECIMENOrdering Facility: [facility] Address: [address] [place] [address] Performed By: #### 5 7021-8 ####[facility] [id number] [place] [address] [place] Hemoglobin (Bld) [Mass/Vol] 12.4 g/dL Normal 11.5-15.5 [facility] [place] Comment on above: Order Comment: Speci men Type: BLOOD SPECIMENOrdering Facility: [facility] Address: [address] [place] [address] Performed By: #### 5 7021-8 ####[facility] [id number] [place] [address] [place] Immature granulocytes (Bld) [#/Vol] 0.04 10*3/uL Normal <0.10 [facility] [place] Comment on above: Order Comment: Speci men Type: BLOOD SPECIMENOrdering Facility: [facility] Address: [address] [place] [address] Performed By: #### 5 7021-8 ####[facility] [id number] [place] [address] [place] Immature granulocytes/100 WBC (Bld) 0.5 % Normal [facility] [place] Comment on above: Order Comment: Speci men Type: BLOOD SPECIMENOrdering Facility: [facility] Address: [address] [place] [address] Performed By: #### 5 7021-8 ####[facility] [id number] [place] [address] [place] Lymphocytes (Bld) [#/Vol] 1.58 10*3/uL Normal 1.00-4.00 [facility] [place] Comment on above: Order Comment: Speci men Type: BLOOD SPECIMENOrdering Facility: [facility] Address: [address] [place] [address] Performed By: #### 5 7021-8 ####[facility] [id number] [place] [address] [place] Lymphocytes/100 WBC (Bld) 19.1 % Normal [facility] [place] Comment on above: Order Comment: Speci men Type: BLOOD SPECIMENOrdering Facility: [facility] Address: [address] [place] [address] Performed By: #### 5 7021-8 ####[facility] [id number] [place] [address] [place] MCH (RBC) [Entitic mass] 27.1 pg Normal 26.0-34.0 [facility] [place] Comment on above: Order Comment: Speci men Type: BLOOD SPECIMENOrdering Facility: [facility] Address: [address] [place] [address] Performed By: #### 5 7021-8 ####[facility] [id number] [place] [address] [place] MCHC (RBC) [Mass/Vol] 31.6 g/dL Normal 30.5-36.0 [facility] Comment on above: Order Comment: Speci men Type: BLOOD SPECIMENOrdering Facility: [facility] Address: [address] [place] [address] Performed By: #### 5 7021-8 ####[facility] [id number] [place] [address] [place] MCV (RBC) [Entitic vol] 86.0 fL Normal 80.0-100.0 [facility] [place] Comment on above: Order Comment: Speci men Type: BLOOD SPECIMENOrdering Facility: [facility] Address: [address] [place] [address] Performed By: #### 5 7021-8 ####[facility] [id number] [place] [address] [place] Monocytes (Bld) [#/Vol] 0.58 10*3/uL Normal <0.87 [facility] [place] Comment on above: Order Comment: Speci men Type: BLOOD SPECIMENOrdering Facility: [facility] Address: [address] [place] [address] Performed By: #### 5 7021-8 ####[facility] [id number] [place] [address] [place] Monocytes/100 WBC (Bld) 7.0 % Normal [facility] [place] Comment on above: Order Comment: Speci men Type: BLOOD SPECIMENOrdering Facility: [facility] Address: [address] [place] [address] Performed By: #### 5 7021-8 ####[facility] [id number] [place] [address] [place] Neutrophils (Bld) [#/Vol] 5.91 10*3/uL Normal 1.45-7.50 [facility] [place] Comment on above: Order Comment: Speci men Type: BLOOD SPECIMENOrdering Facility: [facility] Address: [address] [place] [address] Performed By: #### 5 7021-8 ####[facility] [id number] [place] [address] [place] Neutrophils/100 WBC (Bld) 71.6 % Normal [facility] [place] Comment on above: Order Comment: Speci men Type: BLOOD SPECIMENOrdering Facility: [facility] Address: [address] [place] [address] Performed By: #### 5 7021-8 ####[facility] [id number] [place] [address] [place] Nucleated RBC (Bld) [#/Vol] 10*3/uL Normal <0.01 [facility] [place] Comment on above: Order Comment: Speci men Type: BLOOD SPECIMENOrdering Facility: [facility] Address: [address] [place] [address] Performed By: #### 5 7021-8 ####[facility] [id number] [place] [address] [place] Nucleated RBC/100 WBC (Bld) [Ratio] 0.0 /100 WBC Normal [facility] [place] Comment on above: Order Comment: Speci men Type: BLOOD SPECIMENOrdering Facility: [facility] Address: [address] [place] [address] Performed By: #### 5 7021-8 ####[facility] [id number] [place] [address] [place] Platelet mean volume (Bld) [Entitic vol] 13.2 fL High 9.0-12.7 [facility] [place] Comment on above: Order Comment: Speci men Type: BLOOD SPECIMENOrdering Facility: [facility] Address: [address] [place] [address] Performed By: #### 5 7021-8 ####[facility] [id number] [place] [address] [place] Platelets (Bld) [#/Vol] 187 10*3/uL Normal 150-400 [facility] [place] Comment on above: Order Comment: Speci men Type: BLOOD SPECIMENOrdering Facility: [facility] Address: [address] [place] [address] Performed By: #### 5 7021-8 ####[facility] [id number] [place] [address] [place] RBC (Bld) [#/Vol] 4.57 10*6/uL Normal 3.90-5.20 [facility] Comment on above: Order Comment: Speci men Type: BLOOD SPECIMENOrdering Facility: [facility] Address: [address] [place] [address] Performed By: #### 5 7021-8 ####[facility] [id number] [place] [address] [place] WBC (Bld) [#/Vol] 8.26 10*3/uL Normal 3.70-11.00 [facility] Comment on above: Order Comment: Speci men Type: BLOOD SPECIMENOrdering Facility: [facility] Address: [address] [place] [address] Performed By: #### 5 7021-8 ####[facility] [id number] [address] [facility] CNOVon 07-19-2024 CNOV Office Visit ([facility] ) ----- CAROL ANN MARTINEZ ([id number]) 1985 F Date Time Provider Department 07/19/24 12:[address] [facility] During your visit today, [...] the hip. She is not taken anything tmww-wnt-xnyspgx for it. Patient has multiple sclerosis. Her [...] few seconds when she was on a cwcps-nq-qyqks with her daughter. 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 Normal [facility] metabolic 2000 panelon 07-19-2024 Albumin [Mass/Vol] 3.7 g/dL Low 3.9-4.9 [facility] Comment on above: Order Comment: Speci men Type: BLOOD SPECIMENOrdering Facility: [facility] Address: [address] [place] [address] Performed By: #### 2 276-4, 84400-1 ####[facility] [id number] [place] [address] [place] ALP [Catalytic activity/Vol] 62 U/L Normal 34-123 [facility] [place] Comment on above: Order Comment: Speci men Type: BLOOD SPECIMENOrdering Facility: [facility] Address: [address] [place] [address] Performed By: #### 2 276-4, 15829-0 ####[facility] [id number] [place] [address] [place] ALT [Catalytic activity/Vol] 15 U/L Normal 7-38 [facility] [place] Comment on above: Order Comment: Speci men Type: BLOOD SPECIMENOrdering Facility: [facility] Address: [address] [place] [address] Performed By: #### 2 276-4, 93058-4 ####[facility] [id number] [place] [address] [place] Anion gap [Moles/Vol] 10 mmol/L Normal 8-15 [facility] Comment on above: Order Comment: Speci men Type: BLOOD SPECIMENOrdering Facility: [facility] Address: [address] [place] [address] Performed By: #### 2 276-4, 74095-8 ####[facility] [id number] [place] [address] [place] AST [Catalytic activity/Vol] 18 U/L Normal 13-35 [facility] Comment on above: Order Comment: Speci men Type: BLOOD SPECIMENOrdering Facility: [facility] Address: [address] [place], [place] [address] Performed By: #### 2 276-4, 28109-8 ####[facility] [id number] [place] [address] [place] Bilirubin [Mass/Vol] 0.4 mg/dL Normal 0.2-1.3 [facility] Comment on above: Order Comment: Speci men Type: BLOOD SPECIMENOrdering Facility: [facility] Address: [address] [place] [address] Performed By: #### 2 276-4, 73179-4 ####[facility] [id number] [place] [address] [place] Calcium [Mass/Vol] 9.4 mg/dL Normal 8.5-10.2 [facility] Comment on above: Order Comment: Speci men Type: BLOOD SPECIMENOrdering Facility: [facility] Address: [address] [place] [address] Performed By: #### 2 276-4, 87606-0 ####[facility] [id number] [place] [address] [place] Chloride [Moles/Vol] 104 mmol/L Normal 98-107 [facility] Comment on above: Order Comment: Speci men Type: BLOOD SPECIMENOrdering Facility: [facility] Address: [address] [place], [place] [address] Performed By: #### 2 276-4, 39600-8 ####[facility] [id number] [place] [address] [place] CO2 [Moles/Vol] 22 mmol/L Normal 22-30 [facility] Comment on above: Order Comment: Speci men Type: BLOOD SPECIMENOrdering Facility: [facility] Address: [address] [place], [place] [address] Performed By: #### 2 276-4, 55805-1 ####[facility] [id number] [address] [address] [place] Creatinine [Mass/Vol] 0.62 mg/dL Normal 0.58-0.96 [facility] Comment on above: Order Comment: Specjoshua chauhan Type: BLOOD SPECIMENOrdering Facility: [facility] Address: [address] [place] [address] Performed By: #### 2 276-4, 41761-0 ####[facility] [id number] [place] [address] [place] Creatinine and Glomerular filtration rate.predicted panel (S/P/Bld) 117 mL/min/1.73m??? Normal >=60 [facility] Comment on above: Order Comment: Rylee [facility] Type: BLOOD SPECIMENOrdering Facility: [facility] Address: [address] [place] [address] Result Comment: Priscila mated Glomerular Filtration Rate [...] actual GFR. Performed By: #### 2 276-4, 27068-1 ####[facility] [id number] [place] [id number] [place] Glucose [Mass/Vol] 58 mg/dL Low 74-99 [facility] Comment on above: Order Comment: Speci gissel Type: BLOOD SPECIMENOrdering Facility: [facility] Address: [address] [place] [address] Result Comment: The [place] [employer] (ADA) [...] 2016.39(Suppl 1). Performed By: #### 2 276-4, 28525-5 ####[facility] [id number] [place] [address] [place] Potassium [Moles/Vol] 3.9 mmol/L Normal 3.7-5.1 [facility] Comment on above: Order Comment: Rylee chauhan Type: BLOOD SPECIMENOrdering Facility: [facility] Address: [address] [place] [address] Performed By: #### 2 276-4, 32002-5 ####[facility] [id number] [place] [address] [place] Protein [Mass/Vol] 7.1 g/dL Normal 6.3-8.0 [facility] Comment on above: Order Comment: Rylee chauhan Type: BLOOD SPECIMENOrdering Facility: [facility] Address: [address] [place] [address] Performed By: #### 2 276-4, 84343-0 ####[facility] [id number] [place] [address] [place] Sodium [Moles/Vol] 136 mmol/L Normal 136-144 [facility] Comment on above: Order Comment: Evai men Type: BLOOD SPECIMENOrdering Facility: [facility] Address: [address] [place] [address] Performed By: #### 2 276-4, 18911-1 ####[facility] [id number] [place] [address] [place] Urea nitrogen [Mass/Vol] 8 mg/dL Normal 7-21 [facility] Comment on above: Order Comment: Speci men Type: BLOOD SPECIMENOrdering Facility: [facility] Address: [address] [place], [place] [address] Performed By: #### 2 276-4, 29937-6 ####[facility] [id number] [place] [address] [place] Ferritin SerPl-mCncon 2023 Ferritin [Mass/Vol] 36.5 ng/mL Normal 14.7-205.1 [facility] Comment on above: Order Comment: Speci men Type: BLOOD SPECIMENOrdering Facility: [facility] Address: [address] [place] [address] Performed By: #### 2 276-4, 58668-3 ####[facility] [id number] [place] [address] [place] POLYSOMNOGRAM (PSG)/HOME SLE EP APNEA TEST (HSAT)on 07-03-2024 POLYSOMNOGRAM (PSG)/HOME SLEEP APNEA TEST (HSAT) [facility] at [address], [address] [address] ; Home Sleep Apnea Test (HSAT) Study Report Name: CAROL ANN MARTINEZ Date of Study: 07/03/2024 [facility]#: [id number] Age: 38 (: 1985) ESS: 0 Neck [...] unattended Type III, minimum of 4 parameters (89130) Procedure: This study was performed using a Type III ambulatory PSG device and was unattended. The patient was instructed on proper use of the device by a registered ct technologist. The monitored parameters included heart rate, [...] highly suspected. INTERPRETING PHYSICIAN: MG Marisol DO, LOKESHM ABSM I attest that I have performed epoch by epoch review of the entire raw data and find this study to be technically adequate. Report Digitally Signed By: Sam Damon (07/08/2024 4:02:15 PM) Normal [facility] OB LIMITED 1+ FETUSESon 0 07-02-2024 US [...] Uterus: Visualiz (more content not included)... Normal [facility] OB TRANSVAGINALon 024 OB TRANSVAGINAL Interpreted by: [...] Uterus: Visualiz (more content not included)... Normal [facility] CNCOon 06-21-2024 CNCO Letter Text Normal [facility] US OB DETAIL ANATOMYon 06-14-2024 OB DETAIL [...] EFW (oz) 14 oz EFW by: Hadlock (ELH-AC-VV-FL) Extended Irrigator Overhead 5.9 mm CM 3.2 mm 4% Nicolaides [...] Normal LVOT view: Normal 3-vessel view: Normal 4-bsvdds-tndlhvi view: Normal Heart / Thorax Situs: situs [...] Lt neha (more content not included)... Normal [facility] OB TRANSVAGINALon 024 OB TRANSVAGINAL Interpreted by: [...] EFW (oz) 14 oz EFW by: Hadlock (SAK-LA-NC-FL) Extended Irrigator Overhead 5.9 mm CM 3.2 mm 4% Nicolaides [...] Normal LVOT view: Normal 3-vessel view: Normal 5-dozqmq-dyvimps view: Normal Heart / Thorax Situs: situs [...] Normal Lt neha (more content not included)... [facility] Christiano 06-11-2024 [facility] CAROL ANN MARTINEZ ([id number]) 1985 F Date Time Provider Department 06/11/24 CHAMP BAXTER During your visit today, we recorded the following information about you: Champ Baxter LSW 06/11/2024 9:25 AM Signed This DEZ put in a referral to the [facility] for pt to get connected to additional resources. 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 Problem List [...] Encounter Status:Closed by CHAMP BAXTER on 06/11/24 [facility] 03-24-2024 [facility] Telephone ([facility]) ----- CAROL ANN MARTINEZ ([id number]) 1985 F Date Time Provider Department 03/24/24 [...] Date Reviewed: 01/19/2024 Reviewed by: Kaitlyn Forbes, real estate development manager - Fully Assessed Reason for Visit: [...] (FLONASE) 50 mcg/actuation nasal spray Use 1 [place] in each nostril once daily. Problem List [...] [facility] HCG,Quantitativeon HCG,Quantitative 880351.00 m[iU]/mL Normal [facility] Comment on above: Result Comment: Appr oximate Approximate hCG Gestational Age Range (mIU/ml) (weeks) 0.2-1 5-50 1-2 50-500 2-3 100-5,000 3-4 500-10,000 4-5 1,000-50,000 5-6 10,000-100,000 6-8 15,000-200,000 8-12 10,000-100,000 PERFORMED BY: [place] [address] PATHOLOGIST FITNESS ASSISTANT ALEN PRICE M.D. Performed By: #### H CGQNT #### [place] [id number] [facility] US breast BI limitedon 03-17 US breast BI limited [facility] [address] [place] [address] Mammography Report Signed Patient: Carol Ann Martinez MR#: [id number] : 1985 Acct:[id number] Age/Sex: 38 / F ADM Date: 03/17/24 Loc: [place] Room: Type: [facility] Attending Dr: Clarke Hu Copies to: Clarke Lane MD Ordering Provider: Clarke Hu Date of Service: 03/17/24 MM/MM diagnostic mammo BI w/CAD: RT BREAST LUMP ([id number]) US/US breast BI limited: BILATERAL BREAST LUMPS [...] Renetta Chin M.D.03/17/2024 9:57 AM Dictation Location: [facility] Transcribed By: MEGHANN 03/17/24956 Dictated By: Renetta Chin II, MD 03/17/24922 Signed By: 03/17/24956 Normal [facility] XR Cervical spine AP and Lat eral and obliqueon 03-08-2024 IMPRESSION: No acute osseous abnormality. Preserved cervical disc spaces and neural foramina. Fleet Sales Manager: PSCB Transcribe Date/Time: Mar 08 2024 4:48P Dictated by : VIKTORIYA WALTER MD This examination was interpreted and the report reviewed and electronically signed by: VIKTORIYA WALTER MD on Mar 08 2024 4:50PM [facility] DIVISION OF RADIOLOGY * * *Final [...] to the patient. DIVISION OF RADIOLOGY Provider, [facility] - 03/08/2024 * * *Final Report* * [...] Preserved cervical disc spaces and neural foramina. Fleet Sales Manager: PSCB Transcribe Date/Time: Mar 08 2024 4:48P Dictated by : VIKTORIYA WALTER MD This examination was interpreted and the report reviewed and electronically signed by: VIKTORIYA WALTER MD on Mar 08 2024 4:50PM EST [facility] XR Lumbar spine 3 Viewson IMPRESSION: Unremarkable radiographic appearance of the lumbar spine. Fleet Sales Manager: PSCB Transcribe Date/Time: Mar 08 2024 4:47P Dictated by : VIKTORIYA WALTER MD This examination was interpreted and the report reviewed and electronically signed by: VIKTORIYA WALTER MD on Mar 08 2024 4:48PM EST DIVISION OF RADIOLOGY * * *Final Report* [...] Preserved disc spaces. DIVISION OF RADIOLOGY Provider, [facility] - 03/08/2024 * * *Final [...] Unremarkable radiographic appearance of the lumbar spine. Fleet Sales Manager: PSCB Transcribe Date/Time: Mar 08 2024 4:47P Dictated by : VIKTORIYA WALTER MD This examination was interpreted and the report reviewed and electronically signed by: VIKTORIYA WALTER MD on Mar 08 2024 4:48PM EST [facility] XR Lumbar spine 3 ViewsOrder ed By: Ccf Provider on 03-08-2024 [facility] ESR Westergren method (Bld) [Velocity]on 03-05-2024 ESR (Bld) [Velocity] 5 mm/h [facility] Interpretation and review of laboratory results Normal [facility] JOSSELIN BY IFA WITH REFLEXon Nuclear Ab Ql (S) Negative Normal Negative [facility] Comment on above: Order Comment: Speci men Type: BLOOD SPECIMENOrdering Facility: [facility] Address: [address] [place] [address] Result Comment: Anti -nuclear antibody test is used as an aid in diagnosis of systemic autoimmune diseases. Where positive and clinically warranted, follow-up using disease-specific testing is recommended. Low positive titers are not uncommon with advanced age, certain chronic infections, and malignancies among others. Test methodology: Indirect fluorescence immunoassay (IFA) using HEp-2 cells. Performed By: #### A NAIFR ####[facility] [id number] [place] [address] [place] CBC W Auto Differential pane l (Bld)on 03-04-2024 Basophils (Bld) [#/Vol] 0.04 10*3/uL [facility] Basophils/100 WBC (Bld) 0.5 % [facility] Differential cell count method Nom (Bld) Auto [facility] Eosinophils (Bld) [#/Vol] [facility] Eosinophils/100 WBC (Bld) 0.3 % [facility] Erythrocyte distribution width (RBC) [Ratio] 15.2 % High 11.5 - 15.0 % [facility] Hematocrit (Bld) [Volume fraction] 40.1 % 36.0 - 46.0 % [facility] Hemoglobin (Bld) [Mass/Vol] 12.4 g/dL 11.5 - 15.5 g/dL [facility] Immature granulocytes (Bld) [#/Vol] NINF [facility] Immature granulocytes/100 WBC (Bld) 0.3 % [facility] Interpretation and review of laboratory results Abnormal [facility] Lymphocytes (Bld) [#/Vol] 1.62 10*3/uL [facility] Lymphocytes/100 WBC (Bld) 21.7 % [facility] MCH (RBC) [Entitic mass] 24.1 pg Low 26.0 - 34.0 pg [facility] MCHC (RBC) [Mass/Vol] 30.9 g/dL 30.5 - 36.0 g/dL [facility] MCV (RBC) [Entitic vol] 77.9 fL Low 80.0 - 100.0 fL [facility] Monocytes (Bld) [#/Vol] 0.69 10*3/uL [facility] Monocytes/100 WBC (Bld) 9.2 % [facility] Neutrophils (Bld) [#/Vol] 5.08 10*3/uL [facility] Neutrophils/100 WBC (Bld) 68.0 % [facility] Nucleated RBC (Bld) [#/Vol] [facility] Nucleated RBC/100 WBC (Bld) [Ratio] 0.0 % /100 WBC [facility] Platelet mean volume (Bld) [Entitic vol] [facility] Comment on above: Unable to Report. Platelets (Bld) [#/Vol] 185 10*3/uL [facility] Comment on above: Results checked and verified.No clot detected. RBC (Bld) [#/Vol] 5.15 10*6/uL 3.90 - 5.2 0 m/uL [facility] WBC (Bld) [#/Vol] 7.47 10*3/uL [facility] This is an appended report. These results have been appended to a previously verified report. [facility] Basophils (Bld) [#/Vol] 0.04 10*3/uL Normal <0.11 [facility] Comment on above: Order Comment: Speci men Type: BLOOD SPECIMENOrdering Facility: [facility] Address: [address] [place] [address] Performed By: #### 4 537-7, 09094-2 ####[facility] [id number] [place] [address] [place] Basophils/100 WBC (Bld) 0.5 % Normal [facility] Comment on above: Order Comment: Speci men Type: BLOOD SPECIMENOrdering Facility: [facility] Address: [address] [place] [address] Performed By: #### 4 537-7, 94422-5 ####[facility] [id number] [place] [address] [place] Differential cell count method Nom (Bld) Auto Normal [facility] [place] Comment on above: Order Comment: Speci men Type: BLOOD SPECIMENOrdering Facility: [facility] Address: [address] [place] [address] Performed By: #### 4 537-7, 71229-8 ####[facility] [id number] [place] [address] [place] Eosinophils (Bld) [#/Vol] 10*3/uL Normal <0.46 [facility] [place] Comment on above: Order Comment: Speci men Type: BLOOD SPECIMENOrdering Facility: [facility] Address: [address] [place] [address] Performed By: #### 4 537-7, 37349-3 ####[facility] [id number] [place] [address] [place] Eosinophils/100 WBC (Bld) 0.3 % Normal [facility] [place] Comment on above: Order Comment: Speci men Type: BLOOD SPECIMENOrdering Facility: [facility] Address: [address] [place] [address] Performed By: #### 4 537-7, 39373-4 ####[facility] [id number] [place] [address] [place] Erythrocyte distribution width (RBC) [Ratio] 15.2 % High 11.5-15.0 [facility] [place] Comment on above: Order Comment: Speci men Type: BLOOD SPECIMENOrdering Facility: [facility] Address: [address] [place] [address] Performed By: #### 4 537-7, 33456-0 ####[facility] [id number] [place] [address] [place] Hematocrit (Bld) [Volume fraction] 40.1 % Normal 36.0-46.0 [facility] [place] Comment on above: Order Comment: Speci men Type: BLOOD SPECIMENOrdering Facility: [facility] Address: [address] [place] [address] Performed By: #### 4 537-7, 65269-6 ####[facility] [id number] [place] [address] [place] Hemoglobin (Bld) [Mass/Vol] 12.4 g/dL Normal 11.5-15.5 [facility] [place] Comment on above: Order Comment: Speci men Type: BLOOD SPECIMENOrdering Facility: [facility] Address: [address] [place] [address] Performed By: #### 4 537-7, 35060-4 ####[facility] [id number] [place] [address] [place] Immature granulocytes (Bld) [#/Vol] 10*3/uL Normal <0.10 [facility] [place] Comment on above: Order Comment: Speci men Type: BLOOD SPECIMENOrdering Facility: [facility] Address: [address] [place] [address] Performed By: #### 4 537-7, 68193-0 ####[facility] [id number] [place] [address] [place] Immature granulocytes/100 WBC (Bld) 0.3 % Normal [facility] [place] Comment on above: Order Comment: Speci men Type: BLOOD SPECIMENOrdering Facility: [facility] Address: [address] [place] [address] Performed By: #### 4 537-7, 97625-7 ####[facility] [id number] [place] [address] [place] Lymphocytes (Bld) [#/Vol] 1.62 10*3/uL Normal 1.00-4.00 [facility] [place] Comment on above: Order Comment: Speci men Type: BLOOD SPECIMENOrdering Facility: [facility] Address: [address] [place] [address] Performed By: #### 4 537-7, 99381-2 ####[facility] [id number] [place] [address] [place] Lymphocytes/100 WBC (Bld) 21.7 % Normal [facility] [place] Comment on above: Order Comment: Speci men Type: BLOOD SPECIMENOrdering Facility: [facility] Address: [address] [place] [address] Performed By: #### 4 537-7, 66405-8 ####[facility] [id number] [place] [address] [place] MCH (RBC) [Entitic mass] 24.1 pg Low 26.0-34.0 [facility] [place] Comment on above: Order Comment: Speci men Type: BLOOD SPECIMENOrdering Facility: [facility] Address: [address] [place] [address] Performed By: #### 4 537-7, 71251-5 ####[facility] [id number] [place] [address] [place] MCHC (RBC) [Mass/Vol] 30.9 g/dL Normal 30.5-36.0 [facility] Comment on above: Order Comment: Speci men Type: BLOOD SPECIMENOrdering Facility: [facility] Address: [address] [place] [address] Performed By: #### 4 537-7, 75025-9 ####[facility] [id number] [place] [address] [place] MCV (RBC) [Entitic vol] 77.9 fL Low 80.0-100.0 [facility] [place] Comment on above: Order Comment: Speci men Type: BLOOD SPECIMENOrdering Facility: [facility] Address: [address] [place] [address] Performed By: #### 4 537-7, 47021-0 ####[facility] [id number] [place] [address] [place] Monocytes (Bld) [#/Vol] 0.69 10*3/uL Normal <0.87 [facility] [place] Comment on above: Order Comment: Speci men Type: BLOOD SPECIMENOrdering Facility: [facility] Address: [address] [place] [address] Performed By: #### 4 537-7, 58215-6 ####[facility] [id number] [place] [address] [place] Monocytes/100 WBC (Bld) 9.2 % Normal [facility] [place] Comment on above: Order Comment: Speci men Type: BLOOD SPECIMENOrdering Facility: [facility] Address: [address] [place] [address] Performed By: #### 4 537-7, 89357-1 ####[facility] [id number] [place] [id number] [place] Neutrophils (Bld) [#/Vol] 5.08 10*3/uL Normal 1.45-7.50 [facility] Comment on above: Order Comment: Speci men Type: BLOOD SPECIMENOrdering Facility: [facility] Address: [address] [place] [address] Performed By: #### 4 537-7, 56268-2 ####[facility] [id number] [place] [address] [place] Neutrophils/100 WBC (Bld) 68.0 % Normal [facility] [place] Comment on above: Order Comment: Speci men Type: BLOOD SPECIMENOrdering Facility: [facility] Address: [address] [place] [address] Performed By: #### 4 537-7, 54928-7 ####[facility] [id number] [place] [address] [place] Nucleated RBC (Bld) [#/Vol] 10*3/uL Normal <0.01 [facility] Comment on above: Order Comment: Speci men Type: BLOOD SPECIMENOrdering Facility: [facility] Address: [address] [place] [address] Performed By: #### 4 537-7, 98933-6 ####[facility] [id number] [place] [address] [place] Nucleated RBC/100 WBC (Bld) [Ratio] 0.0 /100 WBC Normal [facility] [place] Comment on above: Order Comment: Speci men Type: BLOOD SPECIMENOrdering Facility: [facility] Address: [address] [place] [address] Performed By: #### 4 537-7, 56392-6 ####[facility] [id number] [place] [address] [place] Platelet mean volume (Bld) [Entitic vol] Normal [facility] Comment on above: Order Comment: Speci men Type: BLOOD SPECIMENOrdering Facility: [facility] Address: [address] [place] [address] Result Comment: Unab le to Report. Performed By: #### 4 537-7, 77903-1 ####[facility] [id number] [place] [address] [place] Platelets (Bld) [#/Vol] 185 10*3/uL Normal 150-400 [facility] [place] Comment on above: Order Comment: Speci men Type: BLOOD SPECIMENOrdering Facility: [facility] Address: [address] [place] [address] Result Comment: Resu lts checked and verified.No clot detected. Performed By: #### 4 537-7, 74951-5 ####[facility] [id number] [place] [address] [place] RBC (Bld) [#/Vol] 5.15 10*6/uL Normal 3.90-5.20 [facility] Comment on above: Order Comment: Speci men Type: BLOOD SPECIMENOrdering Facility: [facility] Address: [address] [place] [address] Performed By: #### 4 537-7, 74988-5 ####[facility] [id number] [place] [address] [place] WBC (Bld) [#/Vol] 7.47 10*3/uL Normal 3.70-11.00 [facility] Comment on above: Order Comment: Speci men Type: BLOOD SPECIMENOrdering Facility: [facility] Address: [address] [place] [address] Performed By: #### 4 537-7, 09503-6 ####[facility] [id number] [place] [id number] [place] [facility] [place] CNOVon 03-04-2024 CNOV Office Visit ([facility] ) ----- CAROL ANN MARTINEZ ([id number]) 1985 F Date Time Provider Department 03/04/24 1:[address] During your visit today, we recorded the following information about you: Temperature Pulse Blood pressure Weight 98.1 degrees 95/minute 101/66 55.7 kg Height 1.689 m Cintia Cadena MA 03/04/2024 1:00 PM Signed [facility] FACTS Please visit our lab at least 3-5 days before your scheduled appointment to have your lab work drawn, if lab work is ordered. This will allow us the ability to review your lab work results with you during your scheduled visit. [facility] LAB HOURS: Lab is open Friday - Friday from 6:30am to 5pm and open 8am -12pm on Saturdays. [facility] HOURS: Friday- 7:30am to 5:30pm. Fridays [...] medicine, or pediatrics at any of our [facility] locations and main campus. Janice Lane MD 03/04/2024 3:19 PM Signed Carol Ann Pérez Juan is a 38 year old [...] physical. Patient Instructions [facility] FACTS Please visit our lab at least 3-5 days before your scheduled appointment to have your lab work drawn, if lab work is ordered. This will allow us the ability to review your lab work results with you during your scheduled visit. [facility] MCGRATH (more content not included)... Normal [facility] CRP SerPl-ncon 03-04-2024 CRP [Mass/Vol] mg/L Normal <0.9 [facility] Comment on above: Order Comment: Speci men Type: BLOOD SPECIMENOrdering Facility: [facility] Address: [address] [place] [address] Performed By: #### 1 1572-5, 95590-9, 1987-5, 2276-4 ####[facility] [id number] [place] [address] [place] ESR Westergren method (Bld) [Velocity]on 03-04-2024 ESR (Bld) [Velocity] 5 mm/h Normal 0-20 [facility] Comment on above: Order Comment: Speci men Type: BLOOD SPECIMENOrdering Facility: [facility] Address: [address] [place] [address] Performed By: #### 4 537-7, 36680-5 ####[facility] [id number] [place] [address] [place] Ferritin SerPl-mCncon 2023 Ferritin [Mass/Vol] 14.2 ng/mL Low 14.7-205.1 [facility] Comment on above: Order Comment: Speci men Type: BLOOD SPECIMENOrdering Facility: [facility] Address: [address] [place] [id number] Performed By: #### 1 1572-5, 90330-5, 1988-03, 2276-02 ####[facility] [id number] [place] [id number] [place] Iron and Iron binding capaci ty panelon 03-04-2024 Iron [Mass/Vol] 90 ug/dL Normal 41-186 [facility] Comment on above: Order Comment: Speci men Type: BLOOD SPECIMENOrdering Facility: [facility] Address: [address] [place] [address] Performed By: #### 1 157-5, 04366-9, 1988-03, 2276-02 ####[facility] [id number] [place] [address] [place] Iron binding capacity [Mass/Vol] 351 ug/dL Normal 232-386 [facility] Comment on above: Order Comment: Speci men Type: BLOOD SPECIMENOrdering Facility: [facility] Address: [address] [place] [address] Performed By: #### 1 157-5, 05136-7, 2276-02 ####[facility] [id number] [place] [id number] [place] Iron/TIBC [Molar ratio] 25.6 % Normal 15.0-57.0 [facility] Comment on above: Order Comment: Speci men Type: BLOOD SPECIMENOrdering Facility: [facility] Address: [address] [place], [place] [address] Performed By: #### 1 1572-5, 71482-6, 2276-02 ####[facility] [id number] [place] [id number] [place] No Panel Informationon 03-04 Radiology Study observation (narrative) [facility] Rheumatoid fact SerPl-aCncon 03-04-2024 Rheumatoid factor Qn [IU]/mL Normal <16 [facility] Comment on above: Order Comment: Speci men Type: BLOOD SPECIMENOrdering Facility: [facility] Address: [address] [place] [address] [place] [address] Performed By: #### 1 1572-5, 88746-3, 1987-5, 2276-4 ####[facility] [id number] [address] [place] Urate SerPl-mCncon Urate [Mass/Vol] 3.1 mg/dL Normal 2.5-6.6 [facility] Comment on above: Order Comment: Speci men Type: BLOOD SPECIMENOrdering Facility: [facility] Address: [address] [place], [place] [address] [address] Performed By: #### 3 084-1 ####[facility] [id number] [address] OF [facility] XR CERVICAL 4V AP/LAT/OBLon 03-04-2024 XR CERVICAL [...] Preserved cervical disc spaces and neural foramina. Fleet Sales Manager: ANGEL Transcribe Date/Time: Mar 08 2024 4:48P [...] Unremarkable radiographic appearance of the lumbar spine. Fleet Sales Manager: PSCB Transcribe Date/Time: Mar 08 2024 4:47P Dictated by : VIKTORIYA WALTER MD This examination was interpreted and the report reviewed and electronically signed by: VIKTORIYA WALTER MD on Mar 08 2024 4:48PM EST [id number] Normal [facility] A1C with Estimated Average [facility] 02-24-2024 Glucose [Mass/Vol] 100 mg/dL Normal [facility] Comment on above: Result Comment: PERF ORMED BY: [facility] [address] [place] [address] PATHOLOGIST FITNESS ASSISTANT ALEN PRICE M.D. Performed By: #### P TT, HCGQNT, CBC, PT, T4F, A1C WTH eA, TSH3 #### [facility] [address] HbA1c (Bld) [Mass fraction] 5.1 % Normal 4.3-5.6 [facility] Comment on above: Result Comment: Incr eased risk for diabetes: 5.7 - 6.4 diabetes: >6.4 glycemic control for adults with diabetes: <7.0 Performed By: #### P TT, HCGQNT, CBC, PT, T4F, A1C WTH eA, TSH3 #### [facility] [address] Activated partial thrombopla stin time (aPTT) in platelet poor plasma by coagulation aOrdered By: Clarke Hu on 02-24-2024 aPTT Coag (PPP) [Time] 33.7 s 25.1-36.5 [facility] Comment on above: A hematocrit value g reater than 55% may lead to inaccurate results in coagulation testing. Patients having hematocrit values >55% require a special collection tube for coagulation studies. Please contact the laboratory at [phone] for redraw instructions. Basophils Auto (Bld) [#/Vol] Ordered By: Clarke Hu on 02-24-2024 Basophils (Bld) [#/Vol] 0.0 10*3/uL 0.0-0.2 [facility] Basophils/100 WBC Auto (Bld) Ordered By: Clarke Hu on 02-24-2024 Basophils/100 WBC (Bld) 0.5 % . [facility] CNPLilli 02-24-2024 CNPN Telephone ([place]) ----- CAROL ANN MARTINEZ ([id number]) 1985 F Date Time Provider Department 02/24/24 TOR HERNANDEZ During your visit today, we recorded the following information about you: Shereen Scott 02/24/2024 2:33 PM Signed [place] Call Name of caller : Milady Relationship to patient: Barney Osorio Return call phone number : [phone] Reason for call : Other : Brief description of concern : The patient is not considered homebound and they are unable to admit the patient. Champ Baxter LSW 02/26/2024 10:08 AM Signed Spoke with Standishyunior Urrutia CM, Iris Edge regarding this message. Iris stated she encouraged pt to reach out to her insurance company and request an insurance CM to help her find an outside provider to provide services. Request sent to Tor Hernandez APRN.CNP for orders: non-[facility] outpatient PT, OT and SPT? Once she finds an outside provider, then CF can send the orders. DEZ Archer, [facility] Social Work Tor Hernandez APRN.CNP 02/26/2024 10:23 AM Signed Non-[facility] PT, OT, and SAFETY INSPECTOR orders placed Tor Hernandez APRN.CNP February 26, [...] Order(s):CONSULT TO PHYSICAL THERAPY [9032] Order #: [id number]: 1 FUTURE CONSULT TO ARMY MANAGER [[id number]] Order #: [id number]: 1 FUTURE CONSULT TO SPEECH THERAPY [2816541] Order #: [id number]: 1 FUTURE Prescriptions as of 02/26/2024 - [...] (FLONASE) 50 mcg/actuation nasal spray Use 1 [place] in each nostril once daily. Problem List [...] on 02-24-2024 HCG.beta subunit Qn 791.11 m[IU]/mL [facility] Comment on above: Approximate Approxim ate hCG Gestational Age Range (mIU/ml) (weeks)0.2-1 5-50 1-2 50-500 2-3 100-5,000 3-4 500-10,000 4-5 1,000-50,000 5-6 10,000-100,000 6-8 15,000-200,000 8-12 10,000-100,000 Complete Blood Count Auto Di ffon 02-24-2024 Basophils (Bld) [#/Vol] 0.0 10*3/uL Normal 0.0-0.2 [facility] Comment on above: Result Comment: PERF ORMED BY: [facility] [address] [place], [place] [address] PATHOLOGIST FITNESS ASSISTANT ALEN PRICE M.D. Performed By: #### P TT, HCGQNT, CBC, PT, T4F, A1C WTH eA, TSH3 #### [address] Basophils/100 WBC (Bld) 0.5 % Normal . [facility] Comment on above: Performed By: #### P TT, HCGQNT, CBC, PT, T4F, A1C WTH eA, TSH3 #### [address] Eosinophils (Bld) [#/Vol] 0.0 10*3/uL Normal 0.0-0.45 [facility] Comment on above: Performed By: #### P TT, HCGQNT, CBC, PT, T4F, A1C WTH eA, TSH3 #### [address] Eosinophils/100 WBC (Bld) 0.2 % Normal . [facility] Comment on above: Performed By: #### P TT, HCGQNT, CBC, PT, T4F, A1C WTH eA, TSH3 #### [address] Erythrocyte distribution width (RBC) [Ratio] 15.2 % Normal 11.9-15.3 [facility] Comment on above: Performed By: #### P TT, HCGQNT, CBC, PT, T4F, A1C WTH eA, TSH3 #### [address] Hematocrit (Bld) [Volume fraction] 36.9 % Normal 34.0-46.4 [facility] Comment on above: Performed By: #### P TT, HCGQNT, CBC, PT, T4F, A1C WTH eA, TSH3 #### [address] Hemoglobin (Bld) [Mass/Vol] 11.7 g/dL Low 11.8-15.4 [facility] Comment on above: Performed By: #### P TT, HCGQNT, CBC, PT, T4F, A1C WTH eA, TSH3 #### [address] Lymphocytes (Bld) [#/Vol] 2.1 10*3/uL Normal 1.00-4.8 [facility] Comment on above: Performed By: #### P TT, HCGQNT, CBC, PT, T4F, A1C WTH eA, TSH3 #### [address] Lymphocytes/100 WBC (Bld) 26.9 % Normal . [facility] Comment on above: Performed By: #### P TT, HCGQNT, CBC, PT, T4F, A1C WTH eA, TSH3 #### [address] MCH (RBC) [Entitic mass] 24.4 pg Low 24.7-34.3 [facility] Comment on above: Performed By: #### P TT, HCGQNT, CBC, PT, T4F, A1C WTH eA, TSH3 #### [address] MCV (RBC) [Entitic vol] 76.5 fL Low 80-100 [facility] Comment on above: Performed By: #### P TT, HCGQNT, CBC, PT, T4F, A1C WTH eA, TSH3 #### [address] Mean Corpuscular HGB Conc 31.8 g/dL Low 32.0-35.0 [facility] Comment on above: Performed By: #### P TT, HCGQNT, CBC, PT, T4F, A1C WTH eA, TSH3 #### [address] Monocytes (Bld) [#/Vol] 0.7 10*3/uL Normal 0.0-0.8 [facility] Comment on above: Performed By: #### P TT, HCGQNT, CBC, PT, T4F, A1C WTH eA, TSH3 #### [place] [id number] [place] Monocytes/100 WBC (Bld) 9.3 % Normal . [facility] Comment on above: Performed By: #### P TT, HCGQNT, CBC, PT, T4F, A1C WTH eA, TSH3 #### [address] Neutrophils (Bld) [#/Vol] 5.0 10*3/uL Normal 1.8-7.7 [facility] Comment on above: Performed By: #### P TT, HCGQNT, CBC, PT, T4F, A1C WTH eA, TSH3 #### [address] Neutrophils/100 WBC (Bld) 63.1 % Normal . [facility] Comment on above: Performed By: #### P TT, HCGQNT, CBC, PT, T4F, A1C WTH eA, TSH3 #### [address] NRBC% 0.0 /100{WBC} Normal 0-0.5 [facility] Comment on above: Performed By: #### P TT, HCGQNT, CBC, PT, T4F, A1C WTH eA, TSH3 #### [address] Platelet mean volume (Bld) [Entitic vol] 11.1 fL High 6.3-10.7 [facility] Comment on above: Performed By: #### P TT, HCGQNT, CBC, PT, T4F, A1C WTH eA, TSH3 #### [place] [address] [place] Platelets (Bld) [#/Vol] 187 10*3/uL Normal 150-450 [facility] Comment on above: Performed By: #### P TT, HCGQNT, CBC, PT, T4F, A1C WTH eA, TSH3 #### [address] RBC (Bld) [#/Vol] 4.82 10*6/uL Normal 3.60-5.00 [facility] Comment on above: Performed By: #### P TT, HCGQNT, CBC, PT, T4F, A1C WT eA, TSH3 #### [facility] [address] WBC (Bld) [#/Vol] 7.9 10*3/uL Normal 3.8-11.6 [facility] Comment on above: Performed By: #### P TT, HCGQNT, CBC, PT, T4F, A1C WT eA, TSH3 #### [facility] [address] [address] Eosinophils Auto (Bld) [#/Vo l]Ordered By: Clarke Hu on 02-24-2024 Eosinophils (Bld) [#/Vol] 0.0 10*3/uL 0.0-0.45 [facility] Eosinophils/100 WBC Auto (Bl d)Ordered By: Clarke Hu on 02-24-2024 Eosinophils/100 WBC (Bld) 0.2 % . [facility] Erythrocyte distribution wid th Auto (RBC) [Ratio]Ordered By: Clarke Hu on 02-24-2024 Erythrocyte distribution width (RBC) [Ratio] 15.2 % 11.9-15.3 [facility] Free T4 (Free Thyroxine)on 0 02-24-2024 Free T4 [Mass/Vol] 0.82 ng/dL Normal 0.61-1.12 [facility] Comment on above: Performed By: #### P TT, HCGQNT, CBC, PT, T4F, A1C WT eA, TSH3 #### [address] Glucose mean value [Mass/vol ume] in Blood Estimated from glycated hemoglobinOrdered By: Clarke Hu on 02-24-2024 Average glucose Estimated from glycated hemoglobin (Bld) [Mass/Vol] 100 mg/dL [facility] HCG,Quantitativeon 4 HCG,Quantitative 791.11 m[iU]/mL Normal [facility] Comment on above: Result Comment: Appr oximate Approximate hCG Gestational Age Range (mIU/ml) (weeks) 0.2-1 5-50 1-2 50-500 2-3 100-5,000 3-4 500-10,000 4-5 1,000-50,000 5-6 10,000-100,000 6-8 15,000-200,000 8-12 10,000-100,000 PERFORMED BY: [facility] [address] [place] [address] PATHOLOGIST FITNESS ASSISTANT ALEN PRICE M.D. Performed By: #### P TT, HCGQNT, CBC, PT, T4F, A1C WTH eA, TSH3 #### [facility] [address] Hematocrit Auto (Bld) [Volum e fraction]Ordered By: Clarke Hu on 02-24-2024 Hematocrit (Bld) [Volume fraction] 36.9 % 34.0-46.4 [facility] Hemoglobin A1c percentageOrd ered By: Clarke Hu on 02-24-2024 HbA1c (Bld) [Mass fraction] 5.1 % 4.3-5.6 [facility] Comment on above: Increased risk for d iabetes: 5.7 - 6.4diabetes: >6.4glycemic control for adults with diabetes: <7.0 Hemoglobin [Mass/volume] in BloodOrdered By: Clarke Hu on 02-24-2024 Hemoglobin (Bld) [Mass/Vol] 11.7 g/dL 11.8-15.4 [facility] INR in Platelet poor plasma by Coagulation assayOrdered By: Clarke Hu on 02-24-2024 INR Coag (PPP) [Relative time] 1.1 {INR} [facility] Comment on above: INR Therapeutic Rang [...] RBC Auto (Bld) [#/Vol] 7.9 10*3/uL 3.8-11.6 [facility] Lymphocytes Auto (Bld) [#/Vo l]Ordered By: Clarke Hu on 02-24-2024 Lymphocytes (Bld) [#/Vol] 2.1 10*3/uL 1.00-4.8 [facility] Lymphocytes/100 WBC Auto (Bl d)Ordered By: Clarke Hu on 02-24-2024 Lymphocytes/100 WBC (Bld) 26.9 % . [facility] MCH Auto (RBC) [Entitic mass ]Ordered By: Clarke Hu on 02-24-2024 MCH (RBC) [Entitic mass] 24.4 pg 24.7-34.3 [facility] MCHC Auto (RBC) [Mass/Vol]Or dered By: Clarke Hu on 02-24-2024 MCHC (RBC) [Mass/Vol] 31.8 g/dL 32.0-35.[address] [facility] MCV Auto (RBC) [Entitic vol] Ordered By: Clarke Hu on 02-24-2024 MCV (RBC) [Entitic vol] 76.5 fL 80-100 [facility] Monocytes Auto (Bld) [#/Vol] Ordered By: Clarke Hu on 02-24-2024 Monocytes (Bld) [#/Vol] 0.7 10*3/uL 0.0-0.8 [facility] Monocytes/100 WBC Auto (Bld) Ordered By: Clarke Hu on 02-24-2024 Monocytes/100 WBC (Bld) 9.3 % . [facility] Neutrophils Auto (Bld) [#/Vo l]Ordered By: Clarke Hu on 02-24-2024 Neutrophils (Bld) [#/Vol] 5.0 10*3/uL 1.8-7.7 [facility] Neutrophils/100 WBC Auto (Bl d)Ordered By: Clarke Hu on 02-24-2024 Neutrophils/100 WBC (Bld) 63.1 % . [facility] Nucleated erythrocytes [Pres ence] in Blood by Automated countOrdered By: Clarke Hu on 02-24-2024 Nucleated RBC Auto Ql (Bld) 0.0 /100{WBC} 0-0.5 [facility] Partial Thromboplastin Timeo n 02-24-2024 aPTT Coag (Bld) [Time] 33.7 s Normal 25.1-36.5 [facility] Comment on above: Result Comment: A he matocrit value greater than 55% may lead to inaccurate results in coagulation testing. Patients having hematocrit values >55% require a special collection tube for coagulation studies. Please contact the laboratory at [phone] for redraw instructions. PERFORMED BY: [place] [address] PATHOLOGIST FITNESS ASSISTANT ALEN PRICE M.D. Performed By: #### P TT, HCGQNT, CBC, PT, T4F, A1C WTH eA, TSH3 #### [facility] [address] [place] [address] Platelet mean volume Auto (B ld) [Entitic vol]Ordered By: Clarke Hu on 02-24-2024 Platelet mean volume (Bld) [Entitic vol] 11.1 fL 6.3-10.7 [facility] Platelets Auto (Bld) [#/Vol] Ordered By: Clarke Hu on 02-24-2024 Platelets (Bld) [#/Vol] 187 10*3/uL 150-450 [facility] Prothrombin Time INRon 02-23 INR Coag (PPP) [Relative time] 1.1 {INR} Normal [facility] Comment on above: Result Comment: [...] PT, T4F, A1C WT eA, TSH3 #### [facility] [address] [place] [address] PT Coag (PPP) [Time] 12.2 s Normal 9.0-12.9 [facility] Comment on above: Result Comment: A he matocrit value greater than 55% may lead to inaccurate results in coagulation testing. Patients having hematocrit values >55% require a special collection tube for coagulation studies. Please contact the laboratory at [phone] for redraw instructions. Performed By: #### P TT, HCGQNT, CBC, PT, T4F, A1C WTH eA, TSH3 #### [facility] [address] [place] [id number] [facility] Prothrombin time (PT)Ordered By: Clarke Hu on 02-24-2024 PT Coag (PPP) [Time] 12.2 s 9.0-12.9 [facility] Comment on above: A hematocrit value g reater than 55% may lead to inaccurate results in coagulation testing. Patients having hematocrit values >55% require a special collection tube for coagulation studies. Please contact the laboratory at [phone] for redraw instructions. RBC Auto (Bld) [#/Vol]Ordere d By: Clarke Hu on 02-24-2024 RBC (Bld) [#/Vol] 4.82 10*6/uL 3.60-5.00 [facility] Thyroid Stimulating Hormoneo n 02-24-2024 TSH Qn 0.96 m[IU]/L Normal 0.45-5.33 [facility] Comment on above: Performed By: #### P TT, HCGQNT, CBC, PT, T4F, A1C WTH eA, TSH3 #### [facility] [address] [place] [id number] [facility] Thyrotropin [Units/volume] i n Serum or PlasmaOrdered By: Clarke Hu on 02-24-2024 TSH Qn 0.96 m[IU]/L 0.45-5.33 [facility] Thyroxine (T4) free [Mass/vo lume] in Serum or PlasmaOrdered By: Clarke Hu on 02-24-2024 Free T4 [Mass/Vol] 0.82 ng/dL 0.61-1.12 [facility] WBC Auto (Bld) [#/Vol]Ordere d By: Clarke Mayte on 02-24-2024 WBC (Bld) [#/Vol] 7.9 10*3/uL 3.8-11.6 [facility] CNPNon 02-18-2024 CNPN Telephone (NEMN) ----- CAROL ANN MARTINEZ ([id number]) 1985 F Date Time Provider Department 02/18/24 CHAMP BAXTER SAMEER During your visit today, we recorded the following information about you: Diana Garcia 02/18/2024 8:55 AM Signed Tex Call [facility]: Self Return call phone number : [phone] Reason for call : Would like a call back regarding the patient Champ BaxterDEZ 02/18/2024 2:04 PM Signed Responded via [...] Date Reviewed: 01/19/2024 Reviewed by: Kaitlyn Forbes, real estate development manager - Fully Assessed Reason for Visit: [...] (FLONASE) 50 mcg/actuation nasal spray Use 1 [place] in each nostril once daily. Problem List [...] Encounter Status:Closed by CHAMP BAXTER [facility]/18/24 [facility]N [facility] (NEMSMN) ----- CAROL ANN MARTINEZ ([id number]) 1985 F Date Time Provider Department 02/03/24 CHAMP BAXTER NEMROMEO During your visit today, we recorded the following information about you: Clarice Zepeda HUC 02/03/2024 1:33 PM Signed Tex Call Name of caller : Iris Edge Relationship to patient: [facility] Return call phone number : [phone] Reason for call : Other : Brief description of concern : Has follow up questions Champ Baxter LSW 02/04/2024 9:37 AM Signed Returned BROOKLYN Simmons's call. Iris stated pt was approved for a [facility] aide one day a week for 45 min to assist with additonal care needs. Iris is requesting an order from the doctor to start care. I will e-mail Iris the order when completed. DEZ Archer, [facility] Social Work Allergies As of Date: [...] Date Reviewed: 01/19/2024 Reviewed by: Kaitlyn Forbes, real estate development manager - Fully Assessed Reason for Visit: Patient Question [3817] Prescriptions as of 02/04/2024 - Norethindrone, Contraceptive, [...] (FLONASE) 50 mcg/actuation nasal spray Use 1 [place] in each nostril once daily. Problem List [...] WO and W c ontrast Joe 01-19-2024 [facility] MRI THORACIC SPINE WO/W IVCO Non [...] identified to suggest active or progressive disease. Fleet Sales Manager: [facility] Transcribe Date/Time: Jan 19 2024 3:31P Dictated by : LOVE WHARTON MD This examination was interpreted and the report reviewed and electronically signed by: LOVE WHARTON MD on Jan 19 2024 3:43PM EST [id number] Normal [facility] CNPNon 01-05-2024 [facility] ----- CAROL ANN MARTINEZ ([id number]) 1985 F Date Time Provider Department 01/05/24 CHAMP BAXTER During your visit today, we [...] Date Reviewed: 12/25/2023 Reviewed by: Tor Hernandez APRN.VP SITE - Fully Assessed Reason for Visit: Appointment [...] (FLONASE) 50 mcg/actuation nasal spray Use 1 [place] in each nostril once daily. Problem List [...] Encounter Status:Closed by NADINE JAMES on 01/05/24 [facility] CNOVon 12-25-2023 CNOV Office Visit (NEMSLR ) ----- CAROL ANN MARTINEZ ([id number]) 1985 F Date Time Provider Department 12/25/23 11:00 AM TOR HERNANDEZ During your visit today, we recorded the following information about you: Pulse Blood pressure Weight Last Period 87/minute 95/67 56.8 kg 12/21/23 Tor Hernandez APRN.VP SITE 12/25/2023 12:09 PM [facility] FOLLOWUP/ESTABLISHED PATIENT VISIT PRINCIPAL NEUROLOGIC DIAGNOSIS: Multiple Sclerosis DISEASE SUMMARY Date of onset: 03/2007 Date of diagnosis of MS: 03/2007 Disease course at onset: Relapsing-Remitting Current disease course: Progressive without relapses Previous disease therapies: - Betaseron [id number] - Copaxone 4316-3613 - Tysabri 2009-Summer 2019 (stopped due to [...] over 3 weeks following occipital relase - 2111-9769 recurrent OS ON - [id number] several relapses including L numbness, weakness, constipation, urinary urgency - 2019 R weakness and numbness needing a wheelchair, hospitalized at [facility] (off Tysabri x3 months due to [...] 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 Her income is significantly limited and she is unable to provide care for both herself and her family due to her fatigue, muscle weakness, dexterity, and paresthesias Had a DANDC 1/19 due to heavy bleeding x 2 months, [...] Row Office Visit from 07/23/[address] [facility] Office Visit from 01/17/[address] [facility] Appointment from 01/15/[address] [facility] Upper Extremity Domain T Score 28.29 [...] Row Office Visit from 07/23/[address] [facility] Office Visit from 01/17/[address] [facility] Appointment from 01/15/[address] [facility] Sleep Domain T Score 69.2 68.89 [...] Edema of lower extremity (04/17/2021), Multiple sclerosis ([facility]), Seizure ([facility]), and Thyroid disease. She has no past medical history of Asthma, Blood dyscrasia, Breast disorder, Chlamydia, Chronic kidney disease, Complication of anesthesia, Coronary artery disease, Diabetes ([facility]), Diabetes, gestational, Gonorrhea, Herpes simplex virus (HSV) infection, History of pre-eclampsia in prior , currently , HIV infection (HCC), Hypertension, Infertility, female, L (more content not included)... Normal [facility] CNPNon 12-25-2023 CNPN Telephone (HCSIND) ----- MARTINEZCAROL ANN GREWAL ([id number]) 1985 F Date Time Provider Department 12/25/23 LISA ELLIOTT HCSIND During your visit today, we recorded the following information about you: Lisa Elliott 12/25/2023 2:08 PM Addendum Spoke with Roxy from [facility] and accepted the patient for Home Care. Thank you for the referral of your patient to [facility]. At this time, we are unable to accommodate your patient's needs in a safe and timely fashion. In order to help your patient receive quality home care, we will assist in finding alternate staffing. I have forwarded the referral to [facility], and it is pending. I will notify you when we have an accepting agency. Thank you. Thank you for the referral of your patient to [facility]. At this time, we [...] for the referral of your patient to [facility]. At this time, we are unable to accommodate your patient's needs in a safe and timely fashion. In order to help your patient receive quality home care, we will assist in finding alternate staffing. I have forwarded the referral to [facility], and it is declined. I [...] Date Reviewed: 12/25/2023 Reviewed by: Tor Hernandez APRN.VP SITE - Fully Assessed Reason for Visit: Home [...] (FLONASE) 50 mcg/actuation nasal spray Use 1 [place] in each nostril once daily. Problem List [...] and review of laboratory results Normal [facility] Preg Test, Ur Negative [facility] - Microbiology an d Antimicrobial susceptibilityon 12-23-2023 SARS-CoV-2 (COVID-19) RNA DEIRDRE+probe Ql (Unsp spec) Negative [facility] No Panel Informationon 12-23 FLU A Negative [facility] FLU B Negative [facility] Interpretation and review of laboratory results Normal [facility] Toño 11-28-2023 L Specimen: [id number] Received: 11/28/23-1310 Status: ALLISON See Num: [id number] Spec Type: Surgical Subm Dr: Clarke Hu Tissues: A Endometrium - Curettings ([facility]) Procedures: HE/2, Gross/Micro L4 Age/ Patient Sex Location Account Attending Physician Carol Ann Martinez 38/F LABELL [id number] Clarke Hu SPEC NUM: [id number] RECD: 11/28/23 STATUS: ALLISON SEE NUM: [id number] ALLAN: 11/28/[address]: Clarke Hu ENTERED: 11/28/[address] [facility] DR: Sherry,Vickey SPEC TYPE: Surgical DEPT: IDRIS [...] in one cassette labeled A1. CPT Codes 05280 Specimen: BS Received: 11/28/23 Status: ALLISON See Num: [id number] Spec Type: Surgical Subm Dr: Clarke Hu Tissues: A Endometrium - Curettings ([facility]) Procedures: HE/2, Gross/Micro L4 Patient: Carol Ann Martinez [id number] (Continued) Signed (signature on file) Edu Watkins MD 12/01/239 [place] [facility] 10-13-2023 [facility] Social Work (HEMASA) ----- CAROL ANN MARTINEZ ([id number]) 1985 F Date Time Provider Department 10/13/23 [...] (FLONASE) 50 mcg/actuation nasal spray Use 1 [place] in each nostril once daily. Problem List [...] Basophils (Bld) [#/Vol] 0.03 10*3/uL <0.11 k/uL [facility] Basophils/100 WBC (Bld) 0.8 % [facility] Differential cell count method Nom (Bld) Auto [facility] Eosinophils (Bld) [#/Vol] 0.07 10*3/uL <0.46 k/uL [facility] Eosinophils/100 WBC (Bld) 1.8 % [facility] Erythrocyte distribution width (RBC) [Ratio] 17.1 % High 11.5 - 15.0 % [facility] Hematocrit (Bld) [Volume fraction] 41.0 % 36.0 - 46.0 % [facility] Hemoglobin (Bld) [Mass/Vol] 12.5 g/dL 11.5 - 15.5 g/dL [facility] Immature granulocytes (Bld) [#/Vol] <0.10 k/uL [facility] Immature granulocytes/100 WBC (Bld) 0.0 % [facility] Lymphocytes (Bld) [#/Vol] 2.63 10*3/uL 1.00 - 4.00 k/uL [facility] Lymphocytes/100 WBC (Bld) 66.4 % [facility] MCH (RBC) [Entitic mass] 23.7 pg Low 26.0 - 34.0 pg [facility] MCHC (RBC) [Mass/Vol] 30.5 g/dL 30.5 - 36.0 g/dL [facility] MCV (RBC) [Entitic vol] 77.7 fL Low 80.0 - 100.0 fL [facility] Monocytes (Bld) [#/Vol] 0.51 10*3/uL <0.87 k/uL [facility] Monocytes/100 WBC (Bld) 12.9 % [facility] Neutrophils (Bld) [#/Vol] 0.72 10*3/uL Low 1.45 - 7.50 k/uL [facility] Neutrophils/100 WBC (Bld) 18.1 % [facility] Nucleated RBC (Bld) [#/Vol] <0.01 k/uL [facility] Nucleated RBC/100 WBC (Bld) [Ratio] 0.0 /100 WBC [facility] Platelet mean volume (Bld) [Entitic vol] [facility] Platelets (Bld) [#/Vol] 179 10*3/uL 150 - 400 k/uL [facility] RBC (Bld) [#/Vol] 5.28 10*6/uL High 3.90 - 5.2 0 m/uL [facility] WBC (Bld) [#/Vol] 3.96 10*3/uL 3.70 - 11. 00 k/uL [facility] Comprehensive metabolic 2000 panelon 09-25-2023 Albumin [Mass/Vol] 4.5 g/dL 3.9 - 4.9 g/dL [facility] ALP [Catalytic activity/Vol] 58 U/L 34 - 123 U/L [facility] ALT [Catalytic activity/Vol] 11 U/L 7 - 38 U/L [facility] Anion gap [Moles/Vol] 9 mmol/L 9 - 18 mmol/L [facility] AST [Catalytic activity/Vol] 17 U/L 13 - 35 U/L [facility] Bilirubin [Mass/Vol] 0.5 mg/dL 0.2 - 1 .3 mg/dL [facility] Calcium [Mass/Vol] 9.5 mg/dL 8.5 - 10. 2 mg/dL [facility] Chloride [Moles/Vol] 106 mmol/L High 97 - 10 5 mmol/L [facility] CO2 [Moles/Vol] 26 mmol/L 22 - 30 mmol/L [facility] Creatinine [Mass/Vol] 0.95 mg/dL 0.58 - 0.96 mg/dL [facility] Estimated Glomerular Filtration Rate 79 mL/min/1.73m >=60 mL/min/1.73m [facility] Glucose [Mass/Vol] 89 mg/dL 74 - 99 mg/dL [facility] Potassium [Moles/Vol] 3.6 mmol/L Low 3.7 - 5.1 mmol/L [facility] Protein [Mass/Vol] 7.4 g/dL 6.3 - 8.0 g/dL [facility] Sodium [Moles/Vol] 141 mmol/L 136 - 144 mmol/L [facility] Urea nitrogen [Mass/Vol] 14 mg/dL 7 - 21 mg/dL [facility] HBV surface Ab Ql (S)on 09-10 HBV surface Ab Qn (S) 528.76 mIU/mL [facility] HEP B CORE AB TOTALon 2022 HBV core Ab Ql (S) Negative Negative [facility] HEP B SURF ABon 09-25-2023 HBV surface Ab Ql (S) Positive [facility] HEP B SURF AG SCRNon 023 HBV surface Ag Ql (S) Negative Negative [facility] HEPATITIS C ANTIBODY IA WITH CONFIRMATIONon 09-25-2023 HCV Ab Ql (S) Negative Negative [facility] PELVIC US WHIon 08-26-2023 [facility] Trichmonas Vaginalis Screen (EIA)on 01-24-2023 Trichomonas Vaginalis Screen (EIA) Negative Normal [facility] Comment on above: Performed By: #### E TRIC #### [facility] [address] [place] [address] [employer] On berry 01-24-2023 Wet Prep Clue Cellls 1+ Abnormal [facility] Comment on above: Performed By: #### W ETPR #### [facility] [address] [place] [address] Wet Prep Trichomonas See EIA Normal [facility] Comment on above: Performed By: #### W ETPR #### [facility] [address] [place] [address] Wet Prep Yeast None Seen Normal [facility] Comment on above: Performed By: #### W ETPR #### [facility] [address] [place] [address] CBC W Auto Differential pane l (Bld)on 01-17-2023 Basophils (Bld) [#/Vol] 0.07 10*3/uL <0.11 k/uL [facility] Basophils/100 WBC (Bld) 1.0 % [facility] Differential cell count method Nom (Bld) Auto [facility] Eosinophils (Bld) [#/Vol] 0.07 10*3/uL <0.46 k/uL [facility] Eosinophils/100 WBC (Bld) 1.0 % [facility] Erythrocyte distribution width (RBC) [Ratio] 15.5 % High 11.5 - 15.0 % [facility] Hematocrit (Bld) [Volume fraction] 31.5 % Low 36.0 - 46.0 % [facility] Hemoglobin (Bld) [Mass/Vol] 9.4 g/dL Low 11.5 - 15.5 g/dL [facility] Immature granulocytes (Bld) [#/Vol] <0.10 k/uL [facility] Immature granulocytes/100 WBC (Bld) 0.3 % [facility] Lymphocytes (Bld) [#/Vol] 2.30 10*3/uL 1.00 - 4.00 k/uL [facility] Lymphocytes/100 WBC (Bld) 32.7 % [facility] MCH (RBC) [Entitic mass] 22.2 pg Low 26.0 - 34.0 pg [facility] MCHC (RBC) [Mass/Vol] 29.8 g/dL Low 30.5 - 36.0 g/dL [facility] MCV (RBC) [Entitic vol] 74.3 fL Low 80.0 - 100.0 fL [facility] Monocytes (Bld) [#/Vol] 0.51 10*3/uL <0.87 k/uL [facility] Monocytes/100 WBC (Bld) 7.2 % [facility] Neutrophils (Bld) [#/Vol] 4.07 10*3/uL 1.45 - 7.50 k/uL [facility] Neutrophils/100 WBC (Bld) 57.8 % [facility] Nucleated RBC (Bld) [#/Vol] <0.01 k/uL [facility] Nucleated RBC/100 WBC (Bld) [Ratio] 0.0 /100 WBC [facility] Platelet mean volume (Bld) [Entitic vol] 13.6 fL High 9.0 - 12.7 fL [facility] Platelets (Bld) [#/Vol] 304 10*3/uL 150 - 400 k/uL [facility] RBC (Bld) [#/Vol] 4.24 10*6/uL 3.90 - 5.2 0 m/uL [facility] WBC (Bld) [#/Vol] 7.04 10*3/uL 3.70 - 11. 00 k/uL [facility] Comprehensive metabolic 2000 panelon 01-17-2023 Albumin [Mass/Vol] 4.5 g/dL 3.9 - 4.9 g/dL [facility] ALP [Catalytic activity/Vol] 62 U/L 34 - 123 U/L [facility] ALT [Catalytic activity/Vol] 11 U/L 7 - 38 U/L [facility] Anion gap [Moles/Vol] 9 mmol/L 9 - 18 mmol/L [facility] AST [Catalytic activity/Vol] 18 U/L 13 - 35 U/L [facility] Bilirubin [Mass/Vol] 0.3 mg/dL 0.2 - 1 .3 mg/dL [facility] Calcium [Mass/Vol] 9.8 mg/dL 8.5 - 10. 2 mg/dL [facility] Chloride [Moles/Vol] 104 mmol/L 97 - 10 5 mmol/L [facility] CO2 [Moles/Vol] 26 mmol/L 22 - 30 mmol/L [facility] Creatinine [Mass/Vol] 0.79 mg/dL 0.58 - 0.96 mg/dL [facility] Estimated Glomerular Filtration Rate 99 mL/min/1.73m >=60 mL/min/1.73m [facility] Glucose [Mass/Vol] 69 mg/dL Low 74 - 99 mg/dL [facility] Potassium [Moles/Vol] 4.2 mmol/L 3.7 - 5.1 mmol/L [facility] Protein [Mass/Vol] 7.9 g/dL 6.3 - 8.0 g/dL [facility] Sodium [Moles/Vol] 139 mmol/L 136 - 144 mmol/L [facility] Urea nitrogen [Mass/Vol] 11 mg/dL 7 - 21 mg/dL [facility] MR Brain WO and W contrast I Von 01-02-2023 * * *Final Report* * * DATE OF EXAM: Jan 02 2023 11:24AM [facility] 0295 - MRI BRAIN WO/W IVCON / [...] Improvement: None. New Enhancing Lesions: None T2 [place] of Disease: Mild. Parenchymal Volume Loss: None. [...] history of multiple sclerosis. Cord T2 Plaque [place]: Moderate New T2 Lesions: None Interval Cord [...] equal to 2mm). DIVISION OF RADIOLOGY Provider, [facility] - 01/02/2023 * * *Final [...] Improvement: None. New Enhancing Lesions: None T2 [place] of Disease: Mild. Parenchymal Volume Loss: None. [...] history of multiple sclerosis. Cord T2 Plaque [place]: Moderate New T2 Lesions: None Interval Cord [...] vertebrae with counting from the craniocervical junction. Fleet Sales Manager: [facility] Transcribe Date/Time: Jan 02 2023 12:13P Dictated by : JEANIE MAKI MD This examination was interpreted and the report reviewed and electronically signed by: JEANIE MAKI MD on Jan 02 2023 12:23PM [facility] MR Cervical spine WO and W [...] Improvement: None. New Enhancing Lesions: None T2 [place] of Disease: Mild. Parenchymal Volume Loss: None. [...] history of multiple sclerosis. Cord T2 Plaque [place]: Moderate New T2 Lesions: None Interval Cord [...] equal to 2mm). DIVISION OF RADIOLOGY Provider, [facility] - 01/02/2023 * * *Final [...] Improvement: None. New Enhancing Lesions: None T2 [place] of Disease: Mild. Parenchymal Volume Loss: None. [...] history of multiple sclerosis. Cord T2 Plaque [place]: Moderate New T2 Lesions: None Interval Cord [...] vertebrae with counting from the craniocervical junction. Fleet Sales Manager: [employer] Transcribe Date/Time: Jan 02 2023 12:13P Dictated by : JEANIE MAKI MD This examination was interpreted and the report reviewed and electronically signed by: JEANIE MAKI MD on Jan 02 2023 12:23PM [facility] Panel Informationon 01-02 IMPRESSION: Multiple intracranial white [...] vertebrae with counting from the craniocervical junction. Fleet Sales Manager: [employer] Transcribe Date/Time: Jan 02 2023 12:13P Dictated by : JEANIE MAKI MD This examination was interpreted and the report reviewed and electronically signed by: JEANIE MAKI MD on Jan 02 2023 12:23PM [facility] DIVISION OF RADIOLOGY Brain Enhancing Lesions None [facility] Brain Interval Improvement None [facility] Brain New T2 Lesions None Site [facility] Brain Other Significant MRI Findings None. [facility] Brain Parenchymal Volume Loss None [facility] Brain T2 [place] of Disease Mild [facility] Cervical spine enhancing lesions None [facility] Cervical Spine New T2 Lesions None [facility] Cervical Spine T2 [place] of Disease Moderate [facility] Radiology Study observation (narrative) [facility] No Panel InformationOrdered By: Ccf Provider on 01-02-2023 [facility] C.trachomatis N.gonorrhoeae DNAon 12-10-2022 C. trachomatis DNA DEIRDRE+probe Ql (Unsp spec) Negative Normal Negative [facility] N. gonorrhoeae DNA DEIRDRE+probe Ql (Unsp spec) Negative Normal Negative [facility] Trichmonas Vaginalis Screen (EIA)on 12-06-2022 Trichomonas Vaginalis Screen (EIA) Negative Normal [facility] Comment on above: Performed By: #### E TRIC #### [facility] [address] [place] [address] Wet Prep-Medical Purposes On berry 12-06-2022 Wet Prep Clue Cellls 1+ Abnormal [facility] Comment on above: Performed By: #### W ETPR #### [facility] [address] [place] [address] Wet Prep Trichomonas See EIA Normal [facility] Comment on above: Performed By: #### W ETPR #### [facility] [address] [place] [address] Wet Prep Yeast None Seen Normal [facility] Comment on above: Performed By: #### W ETPR #### [facility] [address] [place] [address] Albumin [Mass/volume] in Ser um or PlasmaOrdered By: Vishal Agarwal on 10-27-2022 Albumin [Mass/Vol] 4.1 g/dL 3.2-5.5 [facility] Basophils Auto (Bld) [#/Vol] Ordered By: Vishal Agarwal on 10-27-2022 Basophils (Bld) [#/Vol] 0.0 10*3/uL 0.0-0.2 [facility] Basophils/100 WBC Auto (Bld) Ordered By: Vishal Agarwal on 10-27-2022 Basophils/100 WBC (Bld) 0.4 % . [facility] COVID CepheidOrdered By: Brook Agarwal on 10-27-2022 SARS-CoV-2 (COVID-19) Ab IA Ql Positive Negative [facility] Comment on above: This is a duplicate [employer] Xpert Xpress CoV-2/Flu/RSV Plus RNA by RT-PCR result to be used for statistical tracking purpose only. SARS-CoV-2 (COVID-19) RNA DEIRDRE+probe Ql (Unsp spec) [facility] Creatinine and Glomerular fi ltration rate.predicted panel (S/P/Bld)Ordered By: Vishal Agarwal on 10-27-2022 Creatinine [Mass/Vol] 0.96 mg/dL 0.44-1.[address] [facility] Eosinophils Auto (Bld) [#/Vo l]Ordered By: Vishal Agarwal on 10-27-2022 Eosinophils (Bld) [#/Vol] 0.0 10*3/uL 0.0-0.45 [facility] Eosinophils/100 WBC Auto (Bl d)Ordered By: Vishal Agarwal on 10-27-2022 Eosinophils/100 WBC (Bld) 0.0 % . [facility] Erythrocyte distribution wid th Auto (RBC) [Ratio]Ordered By: Vishal Agarwal on 10-27-2022 Erythrocyte distribution width (RBC) [Ratio] 17.4 % 11.9-15.3 [facility] Estimated glomerular filtrat ion rate (GFR) non- AmericanOrdered By: Vishal Agarwal on 10-27-2022 GFR/1.73 sq M.predicted among non-blacks MDRD (S/P/Bld) [Vol rate/Area] > 60 mL/Min [facility] Globulin Calc (S) [Mass/Vol] Ordered By: Vishal Agarwal on 10-27-2022 Globulin (S) [Mass/Vol] 3.5 g/dL [facility] Hematocrit Auto (Bld) [Volum e fraction]Ordered By: Vishal Agarwal on 10-27-2022 Hematocrit (Bld) [Volume fraction] 38.7 % 34.0-46.4 [facility] Hemoglobin [Mass/volume] in BloodOrdered By: Vishal Agarwal on 10-27-2022 Hemoglobin (Bld) [Mass/Vol] 12.1 g/dL 11.8-15.4 [facility] Leukocytes [#/volume] correc che for nucleated erythrocytes in Blood by Automated counOrdered By: Vishal Agarwal on 10-27-2022 WBC corrected for nucl RBC Auto (Bld) [#/Vol] 4.5 10*3/uL 3.8-11.6 [facility] Lymphocytes Auto (Bld) [#/Vo l]Ordered By: Vishal Agarwal on 10-27-2022 Lymphocytes (Bld) [#/Vol] 0.5 10*3/uL 1.00-4.8 [facility] Lymphocytes/100 WBC Auto (Bl d)Ordered By: Vishal Agarwal on 10-27-2022 Lymphocytes/100 WBC (Bld) 10.8 % . [facility] MCH Auto (RBC) [Entitic mass ]Ordered By: Vishal Agarwal on 10-27-2022 MCH (RBC) [Entitic mass] 23.7 pg 24.7-34.3 [facility] MCHC Auto (RBC) [Mass/Vol]Or dered By: Vishal Agarwal on 10-27-2022 MCHC (RBC) [Mass/Vol] 31.2 g/dL 32.0-35.[address] [facility] MCV Auto (RBC) [Entitic vol] Ordered By: Vishal Agarwal on 10-27-2022 MCV (RBC) [Entitic vol] 76.0 fL 80-100 [facility] Monocyte distribution width [Entitic volume] in Blood by AutomatedOrdered By: Vishal Agarwal on 10-27-2022 Monocyte distribution width Auto (Bld) [Entitic vol] 24.86 % 0.00-20.00 [facility] Comment on above: For adults in ED, MD W > 20.0 may be associated with a higher risk of sepsis during the first 12 hrs of hospital admission Monocytes Auto (Bld) [#/Vol] Ordered By: Vishal Agarwal on 10-27-2022 Monocytes (Bld) [#/Vol] 0.8 10*3/uL 0.0-0.8 [facility] Monocytes/100 WBC Auto (Bld) Ordered By: Vishal Agarwal on 10-27-2022 Monocytes/100 WBC (Bld) 16.8 % . [facility] Neutrophils Auto (Bld) [#/Vo l]Ordered By: Vishal Agarwal on 10-27-2022 Neutrophils (Bld) [#/Vol] 3.2 10*3/uL 1.8-7.7 [facility] Neutrophils/100 WBC Auto (Bl d)Ordered By: Vishal Agarwal on 10-27-2022 Neutrophils/100 WBC (Bld) 72.0 % . [facility] No Panel InformationOrdered By: Vishal Agarwal on 10-27-2022 Estimated GFR () > 60 mL/Min [facility] Comment on above: GFR estimated refere nce range: According to KDOQI guidelines, <60 ml/min/1.73m2 is sufficient to diagnose a patient with chronic kidney disease. Pharmacy Creatinine Clearance (Chem 75.11 [facility] Nucleated erythrocytes [Pres ence] in Blood by Automated countOrdered By: Vishal Agarwal on 10-27-2022 Nucleated RBC Auto Ql (Bld) 0.1 /100{WBC} 0-0.5 [facility] Platelet mean volume Auto (B ld) [Entitic vol]Ordered By: Vishal Agarwal on 10-27-2022 Platelet mean volume (Bld) [Entitic vol] 11.0 fL 6.3-10.7 [facility] Platelets Auto (Bld) [#/Vol] Ordered By: Vishal Agarwal on 10-27-2022 Platelets (Bld) [#/Vol] 148 10*3/uL 150-450 [facility] Protein [Mass/volume] in Ser um or PlasmaOrdered By: Vishal Agarwal on 10-27-2022 Protein [Mass/Vol] 7.6 g/dL 6.1-7.9 [facility] RBC Auto (Bld) [#/Vol]Ordere d By: Vishal Agarwal on 10-27-2022 RBC (Bld) [#/Vol] 5.10 10*6/uL 3.60-5.00 [facility] Serum or plasma alanine gannon otransferase measurement without P-5'-P (enzymatic activiOrdered By: Vishal Agarwal on 10-27-2022 ALT No additional P-5'-P [Catalytic activity/Vol] 18 U/L 10-60 [facility] Serum or plasma albumin/glob ulin mass ratioOrdered By: Vishal Agarwal on 10-27-2022 Albumin/Globulin [Mass ratio] 1.2 {ratio} [facility] Serum or plasma alkaline bull sphatase measurement (enzymatic activity/volume)Ordered By: Vishal Agarwal on 10-27-2022 ALP [Catalytic activity/Vol] 43 U/L 32-92 [facility] Serum or plasma anion gap de terminationOrdered By: Vishal Agarwal on 10-27-2022 Anion gap [Moles/Vol] 13.5 mmol/L 6.0-15.0 [facility] Serum or plasma aspartate am inotransferase measurement (enzymatic activity/volume)Ordered By: Vishal Agarwal on 10-27-2022 AST [Catalytic activity/Vol] 24 U/L 10-42 [facility] Serum or plasma calcium scotty urement (mass/volume)Ordered By: Vishal Agarwal on 10-27-2022 Calcium [Mass/Vol] 9.2 mg/dL 8.2-10.2 [facility] Serum or plasma chloride suzie surement (moles/volume)Ordered By: Vishal Agarwal on 10-27-2022 Chloride [Moles/Vol] 101 mmol/L 95-114 [facility] Serum or plasma glucose scotty urement (mass/volume)Ordered By: Vishal Agarwal on 10-27-2022 Glucose [Mass/Vol] 102 mg/dL 70-100 [facility] Comment on above: ADA recommended refe rence rangeRandom Glucose Reference Range is dependent on time and content of last meal. Glucose of more than 200 mg/dL in a nonstressed, ambulatory subject supports the diagnosis of Diabetes Mellitus. Serum or plasma potassium me asurement (moles/volume)Ordered By: Vishal Agarwal on 10-27-2022 Potassium [Moles/Vol] 3.7 mmol/L 3.5-5.[address] [facility] Serum or plasma sodium measu rement (moles/volume)Ordered By: Vishal Agarwal on 10-27-2022 Sodium [Moles/Vol] 134 mmol/L 136-146 [facility] Serum or plasma total biliru bin measurement (mass/volume)Ordered By: Vishal Agarwal on 10-27-2022 Bilirubin [Mass/Vol] 0.8 mg/dL 0.3-1.2 [facility] Serum or plasma total carbon dioxide measurement (moles/volume)Ordered By: Vishal Agarwal on 10-27-2022 CO2 [Moles/Vol] 23.2 mmol/L 22.0-30.[address] [facility] Serum or plasma urea nitroge n measurement (mass/volume)Ordered By: Vishal Agarwal on 10-27-2022 Urea nitrogen [Mass/Vol] 10 mg/dL 9-23 [facility] WBC Auto (Bld) [#/Vol]Ordere d By: Vishal Agarwal on 10-27-2022 WBC (Bld) [#/Vol] 4.5 10*3/uL 3.8-11.6 [facility] HBV surface Ab IA Ql (S)on 1 11-27-2021 HBV surface Ag Ql (S) Negative Negative [facility] HEP B CORE AB TOTALon 2021 HBV core Ab Ql (S) Negative Negative [facility] HEP B SURF AB QUALon 022 HBV surface Ab Ql (S) Positive Abnormal Negative [facility] HEP C AB IA W/CONF SCRNon HCV Ab Ql (S) Negative Negative [facility] MR Brain WO and W contrast [...] Improvement: None. New Enhancing Lesions: None T2 [place] of Disease: Mild. Parenchymal Volume Loss: None. Other Significant Findings: None. MR CERVICAL: Counting reference: Craniocervical junction. Anatomic Variants: None. Alignment: Alignment is anatomic. Craniocervical Junction: Craniocervical junction is normal. Cord Findings: Patchy foci of hyperintensity are noted in the cervical cord on the T2, IR and axial gradient echo images compatible with the history of multiple sclerosis. Cord T2 Plaque [place]: Moderate New T2 Lesions: None Interval Cord [...] history of multiple sclerosis. Cord T2 Plaque [place]: Moderate New T2 Lesions: Greater than three [...] equal to 2mm). DIVISION OF RADIOLOGY Provider, [facility] - 07/23/2022 * * *Final Report* * * DATE OF EXAM: Jul 23 2022 10:56AM [facility] 0295 - MRI BRAIN WO/W IVCON / [...] Improvement: None. New Enhancing Lesions: None T2 [place] of Disease: Mild. Parenchymal Volume Loss: None. Other Significant Findings: None. MR CERVICAL: Counting reference: Craniocervical junction. Anatomic Variants: None. Alignment: Alignment is anatomic. Craniocervical Junction: Craniocervical junction is normal. Cord Findings: Patchy foci of hyperintensity are noted in the cervical cord on the T2, IR and axial gradient echo images compatible with the history of multiple sclerosis. Cord T2 Plaque [place]: Moderate New T2 Lesions: None Interval Cord [...] history of multiple sclerosis. Cord T2 Plaque [place]: Moderate New T2 Lesions: Greater than three [...] and assume there are 5 lumbar-type vertebrae. Fleet Sales Manager: ANGEL Transcribe Date/Time: Jul 23 2022 11:16A Dictated by : ANIRUDH NUÑEZ MD This examination was interpreted and the report reviewed and electronically signed by: ANIRUDH NUÑEZ MD on Jul 23 2022 6:11PM [facility] MR Cervical spine WO and W [...] Improvement: None. New Enhancing Lesions: None T2 [place] of Disease: Mild. Parenchymal Volume Loss: None. Other Significant Findings: None. MR CERVICAL: Counting reference: Craniocervical junction. Anatomic Variants: None. Alignment: Alignment is anatomic. Craniocervical Junction: Craniocervical junction is normal. Cord Findings: Patchy foci of hyperintensity are noted in the cervical cord on the T2, IR and axial gradient echo images compatible with the history of multiple sclerosis. Cord T2 [place]aque [place]: Moderate New T2 Lesions: None Interval Cord [...] history of multiple sclerosis. Cord T2 Plaque [place]: Moderate New T2 Lesions: Greater than three [...] equal to 2mm). DIVISION OF RADIOLOGY Provider, [facility] - 07/23/2022 * * *Final Report* * * DATE OF EXAM: Jul 23 2022 10:56AM [address] [id number] - MRI CERVICAL SPINE WO/W [...] Improvement: None. New Enhancing Lesions: None T2 [place] of Disease: Mild. Parenchymal Volume Loss: None. Other Significant Findings: None. MR CERVICAL: Counting reference: Craniocervical junction. Anatomic Variants: None. Alignment: Alignment is anatomic. Craniocervical Junction: Craniocervical junction is normal. Cord Findings: Patchy foci of hyperintensity are noted in the cervical cord on the T2, IR and axial gradient echo images compatible with the history of multiple sclerosis. Cord T2 [place]aque [place]: Moderate New T2 Lesions: None Interval Cord [...] history of multiple sclerosis. Cord T2 [place]aque [place]: Moderate New T2 Lesions: Greater than three [...] and assume there are 5 lumbar-type vertebrae. Fleet Sales Manager: [employer] Transcribe Date/Time: Jul 23 2022 11:16A Dictated by : ANIRUDH NUÑEZ MD This examination was interpreted and the report reviewed and electronically signed by: ANIRUDH NUÑEZ MD on Jul 23 2022 6:11PM [facility] MR Thoracic spine WO and Anshul summers Joe 07-23-2022 * * *Final Report* * [...] Improvement: None. New Enhancing Lesions: None T2 [place] of Disease: Mild. Parenchymal Volume Loss: None. Other Significant Findings: None. MR CERVICAL: Counting reference: Craniocervical junction. Anatomic Variants: None. Alignment: Alignment is anatomic. Craniocervical Junction: Craniocervical junction is normal. Cord Findings: Patchy foci of hyperintensity are noted in the cervical cord on the T2, IR and axial gradient echo images compatible with the history of multiple sclerosis. Cord T2 Plaque [place]: Moderate New T2 Lesions: None Interval Cord [...] history of multiple sclerosis. Cord T2 Plaque [place]: Moderate New T2 Lesions: Greater than three [...] equal to 2mm). DIVISION OF RADIOLOGY Provider, [facility] * * *Final Report* * [...] Improvement: None. New Enhancing Lesions: None T2 [place] of Disease: Mild. Parenchymal Volume Loss: None. Other Significant Findings: None. MR CERVICAL: Counting reference: Craniocervical junction. Anatomic Variants: None. Alignment: Alignment is anatomic. Craniocervical Junction: Craniocervical junction is normal. Cord Findings: Patchy foci of hyperintensity are noted in the cervical cord on the T2, IR and axial gradient echo images compatible with the history of multiple sclerosis. Cord T2 Plaque [place]: Moderate New T2 Lesions: None Interval Cord [...] history of multiple sclerosis. Cord T2 Plaque [place]: Moderate New T2 Lesions: Greater than three [...] and assume there are 5 lumbar-type vertebrae. Fleet Sales Manager: [employer] Transcribe Date/Time: Jul 23 2022 11:16A Dictated by : ANIRUDH NUÑEZ MD This examination was interpreted and the report reviewed and electronically signed by: ANIRUDH NUÑEZ MD on Jul 23 2022 6:11PM [facility] Panel Informationon 07-23 IMPRESSION: Multiple intracranial white [...] and assume there are 5 lumbar-type vertebrae. Fleet Sales Manager: [employer] Transcribe Date/Time: Jul 23 2022 11:16A Dictated by : ANIRUDH NUÑEZ MD This examination was interpreted and the report reviewed and electronically signed by: ANIRUDH NUÑEZ MD on Jul 23 2022 6:11PM [facility] DIVISION OF RADIOLOGY Radiology Study observation (narrative) [facility] No Panel InformationOrdered By: Ccf Provider on 07-23-2022 [facility] CBC W Auto Differential pane l (Bld)on 04-25-2022 Abs Immature Gran <0.03 <0.10 k/uL [facility] Basophils (Bld) [#/Vol] 0.03 10*3/uL <0.11 k/uL [facility] Basophils/100 WBC (Bld) 0.6 % [facility] Differential cell count method Nom (Bld) Auto [facility] Eosinophils (Bld) [#/Vol] 0.10 10*3/uL <0.46 k/uL [facility] Eosinophils/100 WBC (Bld) 2.0 % [facility] Erythrocyte distribution width (RBC) [Ratio] 13.9 % 11.5 - 15.0 % [facility] Hematocrit (Bld) [Volume fraction] 38.5 % 36.0 - 46.0 % [facility] Hemoglobin (Bld) [Mass/Vol] 12.0 g/dL 11.5 - 15.5 g/dL [facility] Immature Gran % 0.2 % [facility] Lymphocytes (Bld) [#/Vol] 1.54 10*3/uL 1.00 - 4.00 k/uL [facility] Lymphocytes/100 WBC (Bld) 30.2 % [facility] MCH (RBC) [Entitic mass] 25.4 pg Low 26.0 - 34.0 pg [facility] MCHC (RBC) [Mass/Vol] 31.2 g/dL 30.5 - 36.0 g/dL [facility] MCV (RBC) [Entitic vol] 81.4 fL 80.0 - 100.0 fL [facility] Monocytes (Bld) [#/Vol] 0.66 10*3/uL <0.87 k/uL [facility] Monocytes/100 WBC (Bld) 12.9 % [facility] Neutrophils (Bld) [#/Vol] 2.76 10*3/uL 1.45 - 7.50 k/uL [facility] Neutrophils/100 WBC (Bld) 54.1 % [facility] Nucleated RBC (Bld) [#/Vol] 10*3/uL <0.01 k/uL [facility] Nucleated RBC/100 WBC (Bld) [Ratio] 0.0 /100 WBC [facility] Platelet mean volume (Bld) [Entitic vol] 13.5 fL High 9.0 - 12.7 fL [facility] Platelets (Bld) [#/Vol] 168 10*3/uL 150 - 400 k/uL [facility] RBC (Bld) [#/Vol] 4.73 10*6/uL 3.90 - 5.2 0 m/uL [facility] WBC (Bld) [#/Vol] 5.10 10*3/uL 3.70 - 11. 00 k/uL [facility] URINALYSIS, REFLEX MICROSCOP ICon 04-25-2022 Bilirubin Ql (U) Negative Negative [facility] Clarity (Unsp spec) Clear Clear [facility] Color (U) Light Yellow Yellow [facility] Glucose Test strip (U) [Mass/Vol] Negative Negative [facility] Hemoglobin Ql (U) Negative Negative [facility] Ketones Ql (U) Negative Negative [facility] Leukocyte esterase Test strip Ql (U) Negative Negative [facility] Nitrite Ql (U) Negative Negative [facility] pH (U) 6.0 [pH] 5.0 - 8.0 [facility] Protein (U) [Mass/Vol] Negative Negative [facility] Specific gravity (U) [Rel density] 1.021 1.005 - 1.030 [facility] Urobilinogen Ql (U) Negative Negative [facility] CNPNon 11-13-2021 CNPN Telephone (NEADFV) ----- CAROL ANN MARTINEZ ([id number]) 1985 F Date Time Provider Department 11/13/21 [...] (FLONASE) 50 mcg/actuation nasal spray Use 1 [place] in each nostril once daily. - MAGNESIUM ORAL Take 1 tablet by mouth twice daily. - Mktlkxgl-Rx-Qlc-Fe-FA ( VITAMIN) tab Take 1 tablet by [...] Encounter Status:Closed by AUDIE GABRIEL on 11/13/21 [facility] Christiano 07-24-2021 CNPN Telephone (NEADFV) ----- CAROL ANN MARTINEZ F ([id number]) 1985 F Date Time Provider Department 07/24/21 NIDIA GARCIA NEADFV During your visit today, we recorded the following information about you: Hanna Page Carroll 07/24/2021 12:34 PM Signed Patient called stating she is scheduled for an Ocrevus infusion on August 15, but will be out of state in [place]. She would like to have the infusion done there at [facility]. Also,she has new insurance as of May and will need to get the Ocrevus approved through her new insurance ([employer]- ). For questions call patient at [phone] Alexandra Benjamin Blackman 07/24/2021 1:21 PM Signed Patient called back with a phone number of [phone] for [facility]. The phone # her [employer] is [phone]. Audie Gabriel RN 07/24/2021 1:51 PM Signed [...] (FLONASE) 50 mcg/actuation nasal spray Use 1 [place] in each nostril once daily. - MAGNESIUM ORAL Take 1 tablet by mouth twice daily. - Wyezowpl-Xw-Qvp-Fe-FA ( VITAMIN) tab Take 1 tablet by [...] Encounter Status:Closed by AUDIE GABRIEL on 07/24/21 [facility] Telephone Encounteron 2020 [employer] Authentication Interface Message Text Patient was identified by name and date of . Patient given message, patient denied additional questions. ----- Message from Sofy Pandya MD sent at 03/22/2021 12:34 PM EDT ----- Please notify neg HPV with ascus pap, OK to f/u in [address] Sofy Pandya Normal [facility] [employer] [facility] Telephone Encounteron 2020 [employer] Aut[employer] Interface Message Text ----- Message from Sofy Pandya MD sent at 03/08/2021 2:28 PM EDT ----- Please notify ok Normal [facility] [employer] [facility] GC/CHLAMYDIA/TRICHOMONAS AMP LIFICATIONon 03-07-2021 GC/CHLAMYDIA/TRICHOMO BERTIN AMPLIFICATION CHLAMYDIA AMPLIFICATION: Negative GC AMPLIFICATION: Negative TRICHOMONAS AMPLIFICATION: Negative Normal Negative [facility] [employer] [facility] Comment on above: Order Comment: This test is performed using an automated nucleic acid amplification assay ([employer] Performed By: #### G CT #### [facility] [address] [place] [address] [place], [place] HEPATITIS C ANTIBODYon 03-07 HCV Non-Reactive Normal Nonreactive [facility] [employer] [facility] Comment on above: Performed By: #### H CV #### [facility] [address], [place], HIV1 HIV2 AGAB SCRNon 2020 HIV AG-AB SCREEN Non-Reactive Normal Non-Reactive [employer] [facility] Comment on above: Order Comment: HIV [...] agab scrn #### [facility] [address], [place], HUMAN PAPILLOMA VIRUSon 02-09 HPV HIGH RISK Negative Normal Negative [facility] [employer] [facility] Comment on above: Order Comment: This test is performed using an automated nucleic acid amplification assay ([employer] [place], [place]). This assay detects RNA of HPV types 16,18,31,33,35,39,45,51,52,56,58,59,66 and 68 in cervical specimens. Result Comment: A ne gative result does not exclude the possibility of low levels of infection or sampling error. Performed By: #### H PV #### [facility] [address] [place], [address] Progress Noteson 03-07-2021 [employer] Interface Message Text SUBJECTIVE: Carol Ann Martinez is an 35 year old woman who presents for annual obstetrics gyn physician exam. No LMP recorded. Periods are regular [...] Abnormal Pap smear of cervix 2007- in [place]. had LEEP. no abn pap since * [...] Intravenous Push route. * Cholecalciferol 1.25 MG (43962 UT) TABS Take 50,000 Units by mouth once weekly. * Mdaxfsif-Vas-Hr-FA (Mynatal) CAPS Take by mouth. No current [...] no masses, non tender ASSESSMENT: Satisfactory annual obstetrics gyn physician exam PLAN: Dx: 1) Pap smear 2) (more content not included)... Normal [employer] Monument Letterer Authentication Interface Message Text Patient at risk [...] bandage applied. Site appears normal. Normal [employer] Filter Paper Leadon -24-20 20 Lead <2 Normal <5 [facility] Lead Interpretation Normal [facility] Comment on above: Result Comment: Occu pationally exposed adults lead >40 requires medical followup. This test was developed and its performance characteristics determined by [facility]. It has not been cleared or approved by the U.S. Food and Drug Administration. The FDA has determined that such clearance or approval is not necessary. This test is used for clinical purposes. It should not be regarded as investigational or for research. Type of Puncture Capillary Specimen Normal [facility] Vital Signs Date Time Vital Sign Value Performing Clinician Facility 10-04-2024 14:06-0500 Body mass index (BMI) [Ratio] 22.28 kg/m2 Jahaira GRIGGS Work Phone: [facility] 10-04-2024 14:06-0500 Body weight 63.56 kg Jahaira GRIGGS Work Phone: [facility] 10-04-2024 14:06-0500 Diastolic blood pressure 60 mm[Hg] Jahaira GRIGGS Work Phone: [facility] 10-04-2024 14:06-0500 Systolic blood pressure 100 mm[Hg] Jahaira GRIGGS Work Phone: [facility] 09-27-2024 15:20-0500 Body mass index (BMI) [Ratio] 22.44 kg/m2 Clarke Mayte DO Work Phone: [facility] 09-27-2024 15:20-0500 Body weight 64.01 kg Clarke Mayte DO Work Phone: [facility] 09-27-2024 15:20-0500 Diastolic blood pressure 68 mm[Hg] Clarke Mayte DO Work Phone: [facility] 09-27-2024 15:20-0500 Systolic blood pressure 108 mm[Hg] Clarke Mayte DO Work Phone: [facility] 09-22-2024 08:42-0500 Body height 167.6 cm Estella Dutton [facility] 09-22-2024 08:42-0500 Body mass index (BMI) [Ratio] 20.98 kg/m2 Estella Dutton [facility] 09-22-2024 08:42-0500 Body weight 58.97 kg Estella Dutton [facility] 09-21-2024 14:37-0500 Body mass index (BMI) [Ratio] 21.01 kg/m2 Clarke Mayte DO Work Phone: [facility] 09-21-2024 14:37-0500 Body weight 59.93 kg Clarke Mayte DO Work Phone: [facility] 09-21-2024 14:37-0500 Diastolic blood pressure 68 mm[Hg] Clarke Mayte DO Work Phone: [facility] 09-21-2024 14:37-0500 Systolic blood pressure 118 mm[Hg] Clarke Mayte DO Work Phone: [facility] 09-07-2024 14:28-0400 Body mass index (BMI) [Ratio] 22.02 kg/m2 Jahaira [place] PA Work Phone: [facility] 09-07-2024 14:28-0400 Body weight 62.82 kg Jahaira [place] PA Work Phone: [facility] 09-07-2024 14:28-0400 Diastolic blood pressure 72 mm[Hg] Jahaira Modesta PA Work Phone: [facility] 09-07-2024 14:28-0400 Systolic blood pressure 112 mm[Hg] Jahaira Modesta PA Work Phone: [facility] 08-26-2024 19:22-0400 Body mass index (BMI) [Ratio] 22.26 kg/m2 Aleyda Hemmer PA Work Phone: [facility] 08-26-2024 19:22-0400 Body temperature 98.01 [degF] Aleyda Hemmer PA Work Phone: [facility] 08-26-2024 19:22-0400 Body weight 63.5 kg Aleyda Hemmer PA Work Phone: [facility] 08-26-2024 19:22-0400 Diastolic blood pressure 70 mm[Hg] Aleyda Hemmer PA Work Phone: [facility] 08-26-2024 19:22-0400 Heart rate 102 /min Aleyda Hemmer PA Work Phone: [facility] 08-26-2024 19:22-0400 SaO2% (BldA) [Mass fraction] 98 % Aleyda Hemmer PA Work Phone: [facility] 08-26-2024 19:22-0400 Systolic blood pressure 122 mm[Hg] Aleyda GRIGGS Work Phone: [facility] 08-24-2024 10:30-0400 Body mass index (BMI) [Ratio] 21.96 kg/m2 Jahaira Byers PA Work Phone: [facility] 08-24-2024 10:30-0400 Body weight 62.65 kg Jahaira Byers PA Work Phone: [facility] 08-24-2024 10:30-0400 Diastolic blood pressure 70 mm[Hg] Jahaira Byers PA Work Phone: [facility] 08-24-2024 10:30-0400 Systolic blood pressure 120 mm[Hg] Jahaira Byers PA Work Phone: [facility] 08-17-2024 14:43-0400 Body height 168.9 cm Janice Escobar MD Work Phone: [facility] 08-17-2024 14:43-0400 Body mass index (BMI) [Ratio] 21.94 kg/m2 Janice Escobar MD Work Phone: [facility] 08-17-2024 14:43-0400 Body weight 62.6 kg Janice Escobar MD Work Phone: [facility] 08-17-2024 14:43-0400 Diastolic blood pressure 71 mm[Hg] Janice Escobar MD Work Phone: [facility] 08-17-2024 14:43-0400 Heart rate 93 /min Janice Escobar MD Work Phone: [facility] 08-17-2024 14:43-0400 Systolic blood pressure 105 mm[Hg] Janice Escobar MD Work Phone: [facility] 08-10-2024 10:06-0400 Body mass index (BMI) [Ratio] 21.91 kg/m2 Clarke Hu DO Work Phone: [facility] 08-10-2024 10:06-0400 Body weight 62.51 kg Clarke Mayte DO Work Phone: [facility] 08-10-2024 10:06-0400 Diastolic blood pressure 70 mm[Hg] Clarke Mayte DO Work Phone: [facility] 08-10-2024 10:06-0400 Systolic blood pressure 104 mm[Hg] Clarke Mayte DO Work Phone: [facility] 07-19-2024 12:03-0400 Body height 167.[address] MD Work Phone: [facility] 07-19-2024 12:03-0400 Body mass index (BMI) [Ratio] 21.88 kg/m2 Janice Lane MD Work Phone: [facility] 07-19-2024 12:03-0400 Body temperature 97.59 [degF] Janice Lane MD Work Phone: [facility] 07-19-2024 12:03-0400 Body weight 61.[address] MD Work Phone: [facility] 07-19-2024 12:03-0400 Diastolic blood pressure 67 mm[Hg] Janice Lane MD Work Phone: [facility] 07-19-2024 12:03-0400 Heart rate 86 /min Janice Lane MD Work Phone: [facility] 07-19-2024 12:03-0400 SaO2% (BldA) [Mass fraction] 99 % Janice Lane MD Work Phone: [facility] 07-19-2024 12:03-0400 Systolic blood pressure 107 mm[Hg] Janice Lane MD Work Phone: [facility] 03-04-2024 13:00-0400 Body height 168.[address] MD Work Phone: [facility] 03-04-2024 13:00-0400 Body mass index (BMI) [Ratio] 19.52 kg/m2 Janice Lane MD Work Phone: [facility] 03-04-2024 13:00-0400 Body temperature 98.1 [degF] Janice Lane MD Work Phone: [facility] 03-04-2024 13:00-0400 Body weight 55.[address] MD Work Phone: [facility] 03-04-2024 13:00-0400 Diastolic blood pressure 66 mm[Hg] Janice Lane MD Work Phone: [facility] 03-04-2024 13:00-0400 Heart rate 95 /min Janice Lane MD Work Phone: [facility] 03-04-2024 13:00-0400 SaO2% (BldA) [Mass fraction] 100 % Janice Lane MD Work Phone: [facility] 03-04-2024 13:00-0400 Systolic blood pressure 101 mm[Hg] Janice Lane MD Work Phone: [facility] 12-25-2023 10:54-0500 Body weight 56.8 kg Tor Hernandez APRN.VP SITE Work Phone: [facility] 12-25-2023 10:54-0500 Diastolic blood pressure 67 mm[Hg] Tor Hernandez APRN.VP SITE Work Phone: [facility] 12-25-2023 10:54-0500 Heart rate 87 /min Tor Hernandez APRN.VP SITE Work Phone: [facility] 12-25-2023 10:54-0500 Systolic blood pressure 95 mm[Hg] Tor Hernandez APRN.VP SITE Work Phone: [facility] 12-23-2023 13:34-0500 Body mass index (BMI) [Ratio] 20.13 kg/m2 Mravin Howard DO Work Phone: [facility] 12-23-2023 13:34-0500 Body temperature 98.91 [degF] Marvin Howard DO Work Phone: [facility] 12-23-2023 13:34-0500 Body weight 57.42 kg Marvin Howard DO Work Phone: [facility] 12-23-2023 13:34-0500 Diastolic blood pressure 70 mm[Hg] Marvin Howard DO Work Phone: [facility] 12-23-2023 13:34-0500 Heart rate 88 /min Marvin Howard DO Work Phone: [facility] 12-23-2023 13:34-0500 SaO2% (BldA) [Mass fraction] 99 % Marvin Howard DO Work Phone: [facility] 12-23-2023 13:34-0500 Systolic blood pressure 120 mm[Hg] Marvin Howard DO Work Phone: [facility] 09-25-2023 13:25-0500 Body temperature 98.29 [degF] Chair Von Ormy Work Phone: [facility] 09-25-2023 13:25-0500 Diastolic blood pressure 72 mm[Hg] Chair Von Ormy Work Phone: [facility] 09-25-2023 13:25-0500 Heart rate 69 /min Chair Von Ormy Work Phone: [facility] 09-25-2023 13:25-0500 Respiratory rate 16 /min Chair Von Ormy Work Phone: [facility] 09-25-2023 13:25-0500 SaO2% (BldA) [Mass fraction] 99 % Chair Von Ormy Work Phone: [facility] 09-25-2023 13:25-0500 Systolic blood pressure 102 mm[Hg] Chair Kylah Work Phone: [facility] 07-23-2023 10:36-0400 Body weight 56.7 kg Tor Hernandez APRN.VP SITE Work Phone: [facility] 07-23-2023 10:36-0400 Diastolic blood pressure 62 mm[Hg] Tor Hernandez COLORED LIQUID 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.VP SITE Work Phone: [facility] 07-23-2023 10:36-0400 Heart rate 69 /min Tor Hernandez COLORED LIQUID 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.VP SITE Work Phone: [facility] 07-23-2023 10:36-0400 Systolic blood pressure 94 mm[Hg] Tor Hernandez COLORED LIQUID 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.VP SITE Work Phone: [facility] 02-12-2023 11:27-0400 Body height 167.[address] MD Work Phone: [facility] 02-12-2023 11:27-0400 Body weight 55.[address] MD Work Phone: [facility] 02-12-2023 11:27-0400 Diastolic blood pressure 67 mm[Hg] Janice Lane MD Work Phone: [facility] 02-12-2023 11:27-0400 Heart rate 60 /min Janice Lane MD Work Phone: [facility] 02-12-2023 11:27-0400 SaO2% (BldA) [Mass fraction] 98 % Janice Lane MD Work Phone: [facility] 02-12-2023 11:27-0400 Systolic blood pressure 107 mm[Hg] Janice Lane MD Work Phone: [facility] 01-17-2023 10:49-0500 Body weight 56.52 kg Nesha Santana MD Work Phone: [facility] 01-17-2023 10:49-0500 Diastolic blood pressure 73 mm[Hg] Nesha Santana MD Work Phone: [facility] 01-17-2023 10:49-0500 Heart rate 113 /min Nesha Santana MD Work Phone: [facility] 01-17-2023 10:49-0500 Systolic blood pressure 111 mm[Hg] Nesha Santana MD Work Phone: [facility] 10-28-2022 00:35-0500 Body temperature 100.1 [degF] MD Janice Lane Work Phone: [facility] 10-28-2022 00:35-0500 Diastolic blood pressure 73 mm[Hg] MD Jaince Lane Work Phone: [facility] 10-28-2022 00:35-0500 Heart rate 100 /min MD Janice Lane Work Phone: [facility] 10-28-2022 00:35-0500 SaO2% (BldA) [Mass fraction] 98 % MD Janice Lane Work Phone: [facility] 10-28-2022 00:35-0500 Systolic blood pressure 112 mm[Hg] MD Janice Lane Work Phone: [facility] 10-27-2022 23:30-0500 Respiratory rate 16 /min MD Janice Lane Work Phone: [facility] 10-27-2022 21:08-0500 Body height 167.[address] Work Phone: [facility] 10-27-2022 21:08-0500 Body weight 62.[address] Work Phone: [facility] 09-27-2022 13:45-0500 Body temperature 98.8 [degF] Chair Kylah Work Phone: [facility] 09-27-2022 13:45-0500 Diastolic blood pressure 65 mm[Hg] Chair Von Ormy Work Phone: [facility] 09-27-2022 13:45-0500 Heart rate 101 /min Chair Von Ormy Work Phone: [facility] 09-27-2022 13:45-0500 Respiratory rate 16 /min Chair Von Ormy Work Phone: [facility] 09-27-2022 13:45-0500 SaO2% (BldA) [Mass fraction] 99 % Chair Kylah Work Phone: [facility] 09-27-2022 13:45-0500 Systolic blood pressure 101 mm[Hg] Chair Morales Work Phone: [facility] 08-08-2022 07:54-0400 Body weight 61.42 kg Nesha Santana MD Work Phone: [facility] 08-08-2022 07:54-0400 Diastolic blood pressure 65 mm[Hg] Nesha Santana MD Work Phone: [facility] 08-08-2022 07:54-0400 Heart rate 82 /min Nesha Santana MD Work Phone: [facility] 08-08-2022 07:54-0400 Systolic blood pressure 106 mm[Hg] Nesha Santana MD Work Phone: [facility] 05-30-2022 14:00-0400 Diastolic blood pressure 55 mm[Hg] Deuce Osvaldoa OTR/L Work Phone: [facility] 05-30-2022 14:00-0400 Systolic blood pressure 96 mm[Hg] Deuce Nicka OTR/L Work Phone: [facility] 04-25-2022 09:09-0400 Body height 168.9 cm Marshall Hanley MD, PhD Work Phone: [facility] 04-25-2022 09:09-0400 Body weight 62.6 kg Marshall Hanley MD, PhD Work Phone: [facility] 04-25-2022 09:09-0400 Diastolic blood pressure 62 mm[Hg] Marshall Hanley MD, PhD Work Phone: [facility] 04-25-2022 09:09-0400 Heart rate 106 /min Marshall Hanley MD, PhD Work Phone: [facility] 04-25-2022 09:09-0400 Systolic blood pressure 109 mm[Hg] Marshall Hanley MD, PhD Work Phone: [facility] 04-02-2022 17:47-0400 Diastolic blood pressure 75 mm[Hg] DO Vishal Tupa Work Phone: [facility] 04-02-2022 17:47-0400 Heart rate 90 /min DO Vishal Tupa Work Phone: [facility] 04-02-2022 17:47-0400 Respiratory rate 18 /min DO Vishal Tupa Work Phone: [facility] 04-02-2022 17:47-0400 SaO2% (BldA) [Mass fraction] 99 % DO Vishal Tupa Work Phone: [facility] 04-02-2022 17:47-0400 Systolic blood pressure 113 mm[Hg] DO Vishal Tupa Work Phone: [facility] 04-02-2022 15:46-0400 Body height 168.91 cm DO Vishal Tupa Work Phone: [facility] 04-02-2022 15:46-0400 Body mass index (BMI) [Ratio] 21.7 kg/m2 DO Vishal Tupa Work Phone: [facility] 04-02-2022 15:46-0400 Body temperature 98.5 [degF] DO Vishal Tupa Work Phone: [facility] 04-02-2022 15:46-0400 Body weight 62.14 kg DO Vishal Tupa Work Phone: [facility] 03-26-2022 12:45-0400 Body temperature 98.8 [degF] Neur Infusion Work Phone: [facility] 03-26-2022 12:45-0400 Diastolic blood pressure 67 mm[Hg] Neur Infusion Work Phone: [facility] 03-26-2022 12:45-0400 Heart rate 95 /min Neur Infusion Work Phone: [facility] 03-26-2022 12:45-0400 Systolic blood pressure 100 mm[Hg] Neur Infusion Work Phone: [facility] 01-05-2020 11:52-0500 BMI (Body Mass Index) 20.71 kg/m2 Karri Jones [place]xljd-[place]bnx [place] 0 Work Phone: 01-05-2020 11:52-0500 Body weight 59.08 kg Karri Jones RM-Wpcbyinrhp-Bt [facility] 0 Work Phone: 01-05-2020 11:52-0500 BP Diastolic 74 mm[Hg] Karri Jones OB-Pbbokyadnf-Hr [facility] 0 Work Phone: Comment on above: Location: RUE; Position: Sitting 01-05-2020 11:52-0500 BP Systolic 108 mm[Hg] Karri Jones FS-Ypscsmjkox-Jb [facility] 0 Work Phone: Comment on above: Location: RUE; Position: Sitting 01-05-2020 11:52-0500 BSA (Body Surface Area) 1.68 m2 Karri Jones PB-Hkcgbupcbs-Mkot [place] 0 Work Phone: 01-05-2020 11:52-0500 Height 168.91 cm Karri Jones OU-Ebgzgcqrfn-Jx [facility] 0 Work Phone: 01-05-2020 11:52-0500 Pulse (Heart Rate) 89 /min Karri Jones MG-Cardiology -[facility] 0 Work Phone: 01-05-2020 11:52-0500 Pulse Oximetry 99 % Karri Jones YA-Vlxpbhhcwr-Os [facility] 0 Work Phone: 01-05-2020 11:52-0500 Respiratory Rate 16 /min Karri Jones [place]-Nqchitigzq-Z [facility] 0 Work Phone: 05-05-2019 08:59-0400 BP Diastolic 73 mm[Hg] STAFF [facility] 05-05-2019 08:59-0400 BP Systolic 103 mm[Hg] STAFF [facility] 05-05-2019 08:59-0400 Pulse (Heart Rate) 92 /min STAFF [facility] 04-09-2019 12:20-0400 Body weight 71.7 kg STAFF [facility] 04-09-2019 12:20-0400 Height 170.21 cm STAFF [facility] 04-09-2019 11:00-0400 Pulse Oximetry 98 % STAFF [facility] 04-09-2019 11:00-0400 Respiratory Rate 20 /min STAFF [facility] Encounters Encounter Date Encounter Type Care Provider Facility Start: 10-05-2024 End: 10-05-2024 ambulatory [facility] Start: 10-05-2024 End: 10-05-2024 Subsequent hospital visit by physician Zana Giront200 [facility] [place] Comment on above: Encounter for superv ision of normal , unspecified, unspecified trimester; Multiple sclerosis 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 trimester (Multi) Start: 10-05-2024 End: 10-05-2024 ambulatory CLARKE CHEN [facility] Start: 10-04-2024 End: 10-04-2024 Bamboo flowsheet Jahaira GRIGGS Work Phone: [facility] Start: 10-04-2024 End: 10-04-2024 Jvboo andrew GRIGGS Work Phone: [facility] Start: 10-04-2024 End: 10-04-2024 ambulatory JAHAIRA BYERS Not Available Start: 10-04-2024 End: 10-04-2024 Office outpatient visit 15 minutes Jahaira GRIGGS Work Phone: [facility] Comment on above: 36 weeks gestation o f ; Third trimester Start: 09-27-2024 End: 09-27-2024 Office outpatient visit 15 minutes Clarke Hu DO Work Phone: [facility] Comment on above: with maria l glucose tolerance test (GTT); Third trimester ; 35 weeks gestation of Start: 09-27-2024 End: 09-27-2024 ambulatory CLARKE MAYTE Not Available Start: 09-27-2024 End: 09-27-2024 Bamboo flowsheet Clarke Mayte DO Work Phone: [facility] Start: 09-27-2024 End: 09-27-2024 Bamboo flowsheet Clarke Mayte DO Work Phone: [facility] Start: 09-22-2024 End: 09-22-2024 Nutrition therapy Estella Dutton RD [facility] Comment on above: Multiple sclerosis ( HCC) (Primary Dx); Dietary counseling and surveillance Start: 09-22-2024 End: 09-22-2024 Telemedicine consultation with patient Estella Nona HERNANDEZ Nutrition Therapy Start: 09-22-2024 End: 09-22-[address] Facility:[facility] Start: 09-21-2024 End: 09-21-2024 Office outpatient visit 15 minutes Clarke Mayte DO Work Phone: [facility] Comment on above: 34 weeks gestation [...] 09-20-2024 End: 09-20-2024 Specialty Pharmacy Kenzie Mccall [facility] Comment on above: SPP Neurology - Medi cation Refill (Glatiramer) Start: 09-17-2024 End: 09-17-2024 ambulatory CLARKE [facility] Start: 09-17-2024 End: 09-17-2024 Subsequent hospital visit by physician Winnie Obyannamg Ultrasound 3 [facility] Comment on above: Arrived Start: 09-14-2024 End: 09-14-2024 ambulatory CLARKE [facility] Start: 09-07-2024 End: 09-07-2024 Office outpatient visit 15 minutes Jahaira GRIGGS Work Phone: [facility] Comment on above: Third trimester preg alee; 32 weeks gestation of ; Encounter for screening for cervical length Start: 09-07-2024 End: 09-07-2024 ambulatory JAHAIRA BYERS Not Available Start: 09-07-2024 End: 09-07-2024 Bamboo flowsheet Jahaira GRIGGS Work Phone: [facility] Start: 09-07-2024 End: 09-07-2024 Bamboo flowsheet Jahaira GRIGGS Work Phone: [facility] Start: 09-03-2024 End: 09-03-2024 ambulatory Estrella Sorto PT, DPT Work Phone: [facility] Comment on above: Right hip pain Start: 09-02-2024 End: 09-06-2024 ambulatory Tor Hernandez APRN.VP SITE Work Phone: [facility] Comment on above: Need [address] Start: 09-02-2024 End: 09-06-2024 Letter encounter Tor Hernandez APRN.VP SITE Work Phone: 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 Comment on above: Orders (OTC-Nutritio nal Suppl) Start: 08-17-2024 End: 08-17-2024 Office outpatient visit 25 minutes Janice Escobar MD Work Phone: [facility] Comment on above: Multiple sclerosis a ffecting in second trimester (Multi) Start: 08-17-2024 End: 08-17-2024 Subsequent hospital visit by physician Zana Oliverosb Obgynimg Ultrasound 3 [facility] Comment on above: Encounter for superv ision of normal , unspecified, unspecified trimester; AMA (advanced maternal age) primigravida 35+, third trimester ([facility]); Maternal care for other known or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 procedure 09/03/2024 8:45 AM EDT OT/PT/Speech Visit [facility] [address] [facility] [place] [address] Estrella Sorto, PT, DPT [address] [facility] [place] [address] hip pain and ms consult missed 08/23/24 [facility] Comment on above: hip pain and ms cons ult missed 08/23/24 Start: 09-01-2024 RSV High Risk: (Elde rly (60+) or Population) (1 - Risk 1-dose series) RSV High Risk: (Elderly (60+) or Population) (1 - Risk 1-dose series) [facility] Start: 09-01-2024 RSV Vaccine (1 - Ris k 1-dose series) RSV Vaccine (1 - Risk 1-dose series) [facility] Start: 08-30-2024 End: 08-30-2024 Patient encounter procedure 08/30/2024 3:00 PM EDT Office Visit [facility] [address] [place] [address] Art Swenson S, OD [address] [place] [address] Huge eye buggar.Eyes get tired.Eye lashes fallout Ophthalmology Comment on above: Huge eye buggar.Eyes get tired.Eye lashes fallout Start: 08-24-2024 End: 08-24-2024 Patient encounter procedure 08/24/2024 9:40 AM EDT Routine [facility] [address] [place] [id number] Jahaira Byers PA [address] [facility] [place] [address] [facility] Start: 08-24-2024 End: 08-24-2024 Professional / ancillary services management 08/24/2024 9:00 AM EDT Ancillary Procedure [facility] [address] [place] [address] [facility] Start: 08-23-2024 End: 08-23-2024 ambulatory 08/23/2024 11:30 AM EDT OT/PT/Speech Visit [facility] [address] [facility] [place] [address] Renetta Bhagat, PT [address] [facility] [address] [place] [address] Right hip pain [M25.551] [facility] Comment on above: Right hip pain [M25. 551] Start: 08-16-2024 End: 08-16-2024 Specialty Pharmacy 08/16/2024 11:00 AM EDT Specialty Pharmacy [facility] [address] [place] [address] Drive [address] [place] [address] Pharmacist, [facility] [address] [place] [address] [place] [address] refill - glatiramer -- [facility] Comment on above: refill - glatiramer -- Start: 07-20-2024 End: 07-20-2024 Follow-up encounter 07/20/2024 11:00 AM EDT [facility] [address] [facility] [place] [address] Germania Wilkinson MD [address] [place] [address] Follow up Neurology Comment on above: Follow up Start: 07-19-2024 End: 10-18-2024 CBC W Auto Differential panel - Blood [facility] Comment on above: Expected: 07/19/2024 , Expires: 10/18/2024 Start: 07-19-2024 End: 10-18-2024 Comprehensive metabolic 2000 panel - Serum or Plasma [facility] Comment on above: Expected: 07/19/2024 , Expires: 10/18/2024 Start: 07-19-2024 End: 10-18-2024 Ferritin [Mass/volume] in Serum or Plasma [facility] Comment on above: Expected: 07/19/2024 , Expires: 10/18/2024 Start: 07-19-2024 End: 07-19-2024 Patient encounter procedure [facility] Comment on above: 1 year physical refill - glatiramer -- Start: 07-11-2024 Covid-19 Vaccine ( season) Covid-19 Vaccine () [facility] Start: 07-11-2024 Covid-19 Vaccine () Covid-19 Vaccine () [facility] Start: 07-11-2024 Influenza vaccination Influenza Vacc ine (#1) [facility] Start: 07-01-2024 End: 07-01-[address] [facility] Comment on above: Return in about 6 mo nths (around 06/24/2024). Snoring [R06.83] Start: 06-25-2024 End: 06-25-2024 Specialty Pharmacy 06/25/2024 11:00 AM EDT Specialty Pharmacy [facility] [id number] [place] [address] Pharmacist, [facility] [address] [place] [address] [place] [address] refill - glatiramer -- lvm 06/22 [facility] Comment on above: refill - glatiramer -- lvm 06/22 Start: 06-23-2024 End: 06-23-2024 Patient encounter procedure 06/23/2024 8:00 AM EDT Office Visit Neurology [address] [place] [address] [facility] Neurology Comment on above: ACTIGRAPHY Start: 06-22-2024 End: 06-22-2024 Specialty Pharmacy 06/22/2024 11:00 AM EDT Specialty Pharmacy [facility] [place] [phone] [place] [address] Pharmacist, [facility] [address] [place] [address] [place] [address] refill - glatiramer -- [facility] Comment on above: refill - glatiramer -- Start: 06-08-2024 End: 06-08-2024 ambulatory 06/08/2024 1:00 PM EDT [facility] Neurology [address] [facility] [place] [address] Germania Wilkinson MD [address] [place] [address] [facility] Comment on above: INSOMNIA Start: 06-08-2024 End: 06-08-2024 Patient encounter procedure 06/08/2024 1:00 PM EDT Office Visit Neurology [address] [facility] [place] [address] Germania Wilkinson MD [address] [place] [address] [facility] Comment on above: INSOMNIA Start: 05-25-2024 End: 05-25-2024 Patient encounter procedure 05/25/2024 8:00 AM EDT Office Visit Neurology [address] [place] [address] ACT[facility] Neurology Comment on above: ACTIGRAPHY Start: 05-24-2024 End: 05-24-2024 Specialty Pharmacy 05/24/2024 11:00 AM EDT Specialty Pharmacy [facility] [address] [place], [place] [id number] [place] [address] Pharmacist, [facility] [address] [place] [address] [place] [address] refill - glatiramer -- [facility] Comment on above: refill - glatiramer -- Start: 05-19-2024 End: 05-19-2024 Patient encounter procedure 05/19/2024 10:00 AM EDT Office Visit [facility] [address] [place] [address] Clarke Hu, DO [address] [facility] [address] [place], [place] [address] [facility] Start: 04-30-2024 End: 04-30-2024 Specialty Pharmacy 04/30/2024 11:00 AM EDT Specialty Pharmacy [facility] [address] [place] [address] [place] [address] Pharmacist, Specialty[address] [place] [address] refill--glatiramer [facility] Comment on above: refill--glatiramer Start: 04-21-2024 End: 04-21-2024 Patient encounter procedure 04/21/2024 8:00 AM EDT Office Visit [facility]rology [address] [facility] [place] [id number] ACTIGRAP[facility] Neurology Comment on above: ACTIGRAPHY Start: 03-30-2024 End: 03-30-2024 ambulatory 03/30/2024 1:45 PM EDT [place] [id number] Tor Hernandez APRN.VP [address] [place] [address] What medicine to take during or off of [facility] Comment on above: What medicine to raúl e during or off of Start: 03-26-2024 End: 03-26-2024 ambulatory 03/26/2024 9:40 AM EDT Infusion Center Hematology/Oncology [address] [facility] [place] [address] Kylah, Chair [address] [place] [address] [place] [address] [facility] Comment on above: [facility] Start: 03-22-2024 End: 03-22-2024 ambulatory 03/22/2024 2:30 PM EDT [facility] Neurology [address] [place] [address] Ayan Marie APRN.VP [address] [place] [address] F/U Neurology Comment on above: F/U Start: 03-08-2024 End: 03-08-2024 Patient encounter procedure 03/08/2024 8:00 AM EDT Office Visit Neurology [address] [place] [address] ACTIGRAPHY Neurology Comment on above: ACTIGRAPHY Start: 03-07-2024 Screening for malign ant neoplasm of cervix [facility] Start: 03-04-2024 End: 06-03-2024 JOSSELIN BY IFA WITH REFLEX [facility] Comment on above: Expected: 03/04/2024 , Expires: 06/03/2024 Start: 03-04-2024 End: 06-03-2024 C reactive protein [Mass/volume] in Serum or Plasma [facility] Comment on above: Expected: 03/04/2024 , Expires: 06/03/2024 Start: 03-04-2024 End: 06-03-2024 Ferritin [Mass/volume] in Serum or Plasma [facility] Comment on above: Expected: 03/04/2024 , Expires: 06/03/2024 Start: 03-04-2024 End: 06-03-2024 Iron and Iron binding capacity panel - Serum or Plasma [facility] Comment on above: Expected: 03/04/2024 , Expires: 06/03/2024 Start: 03-04-2024 End: 06-03-2024 Rheumatoid factor [Units/volume] in Serum or Plasma [facility] Comment on above: Expected: 03/04/2024 , Expires: 06/03/2024 Start: 03-04-2024 End: 06-03-2024 Urate [Mass/volume] in Serum or Plasma [facility] Comment on above: Expected: 03/04/2024 , Expires: 06/03/2024 Start: 02-24-2024 [facility] Start: 12-11-2023 End: 08-21-2024 Mri brain brain stem w/o w/contrast material MRI BRAIN WO/W IVCON Radiology Routine Multiple sclerosis (HCC) Expected: 12/11/2023 (Approximate), Expires: 08/21/2024 [facility] Work Phone: Comment on above: Expected: 12/11/2023 (Approximate), Expires: 08/21/2024 Start: 11-10-2023 Behavioral Health Screening Behavioral Health Screening [facility] Start: 11-10-2023 Depression Assessment Depression Ass essment [facility] Start: 10-25-2023 End: 01-24-2024 CBC W Auto Differential panel - Blood CBC + DIFF Lab Routine Other drug-induced neutropenia (HCC) Expected: 10/25/2023 (Approximate), Expires: 01/24/2024 [facility] Work Phone: Comment on above: Expected: 10/25/2023 (Approximate), Expires: 01/24/2024 Start: 09-25-2023 End: 12-25-2023 CD19 ABSOLUTE COUNT [facility] Work Phone: Comment on above: Expected: 09/25/2023 , Expires: 12/25/2023 Start: 09-23-2023 End: 12-23-2023 Choriogonadotropin.beta subunit [Units/volume] in Serum or Plasma HCG QUANTITATIVE Lab Routine Multiple sclerosis ([facility]) Expected: 09/23/2023, Expires: 12/23/2023 [facility] Work Phone: Comment on above: Expected: 09/23/2023 , Expires: 12/23/2023 Start: 09-23-2023 End: 12-23-2023 IgG [Mass/volume] in Serum or Plasma IGG Lab Routine Multiple sclerosis ([facility]) Expected: 09/23/2023, Expires: 12/23/2023 [facility] Work Phone: Comment on above: Expected: 09/23/2023 , Expires: 12/23/2023 Start: 09-23-2023 End: 12-23-2023 IgM [Mass/volume] in Serum or Plasma IGM Lab Routine Multiple sclerosis ([facility]) Expected: 09/23/2023, Expires: 12/23/2023 [facility] Work Phone: Comment on above: Expected: 09/23/2023 , Expires: 12/23/2023 Start: 07-11-2023 Covid-19 Vaccine ( season) Covid-19 Vaccine ( season) [facility] Start: 07-11-2023 Influenza vaccination [facility] Start: 02-12-2023 End: 04-14-2023 CBC W Auto Differential panel - Blood [facility] Work Phone: Comment on above: Expected: 02/12/2023 , Expires: 04/14/2023 Start: 02-12-2023 End: 04-14-2023 Ferritin [Mass/volume] in Serum or Plasma [facility] Work Phone: Comment on above: Expected: 02/12/2023 , Expires: 04/14/2023 Start: 02-12-2023 End: 02-26-2023 Influenza virus A and B RNA and SARS-CoV-2 (COVID-19) N gene panel - Respiratory specimen by DEIRDRE with probe detection [facility] Work Phone: Comment on above: Expected: 02/12/2023 , Expires: 02/26/2023 Start: 02-12-2023 End: 04-14-2023 Iron and Iron binding capacity panel - Serum or Plasma [facility] Work Phone: Comment on above: Expected: 02/12/2023 , Expires: 04/14/2023 Start: 02-12-2023 End: 02-13-2024 PELVIC US WHI PELVIC US WHI Anc Imaging Routine Vaginal bleeding Expected: 02/12/2023, Expires: 02/13/2024 [facility] Work Phone: Comment on above: Expected: 02/12/2023 , Expires: 02/13/2024 Start: 02-05-2023 End: 12-07-2023 Mri brain brain stem w/o w/contrast material MRI BRAIN WO/W IVCON Radiology Routine Multiple sclerosis (HCC) Expected: 02/05/2023 (Approximate), Expires: 12/07/2023 [facility] Work Phone: Comment on above: Expected: 02/05/2023 (Approximate), Expires: 12/07/2023 Start: 02-05-2023 End: 12-07-2023 Mri spinal canal cervical w/o & w/contr matrl MRI CERVICAL SPINE WO/W IVCON Radiology Routine Multiple sclerosis (HCC) Expected: 02/05/2023 (Approximate), Expires: 12/07/2023 [facility] Work Phone: Comment on above: Expected: 02/05/2023 (Approximate), Expires: 12/07/2023 Start: 01-17-2023 End: 03-19-2023 25-hydroxyvitamin D3 [Mass/volume] in Serum or Plasma [facility] Work Phone: Comment on above: Expected: 01/17/2023 , Expires: 03/19/2023 Start: 01-17-2023 End: 03-19-2023 Cobalamin (Vitamin B12) [Mass/volume] in Serum or Plasma [facility] Work Phone: Comment on above: Expected: 01/17/2023 , Expires: 03/19/2023 Start: 01-17-2023 End: 03-19-2023 IgG [Mass/volume] in Serum or Plasma [facility] Work Phone: Comment on above: Expected: 01/17/2023 , Expires: 03/19/2023 Start: 01-17-2023 End: 03-19-2023 IgM [Mass/volume] in Serum or Plasma [facility] Work Phone: Comment on above: Expected: 01/17/2023 , Expires: 03/19/2023 Start: 01-17-2023 End: 03-19-2023 Thyrotropin [Units/volume] in Serum or Plasma [facility] Work Phone: Comment on above: Expected: 01/17/2023 , Expires: 03/19/2023 Start: 11-10-2022 DEPRESSION ASSESSMENT DEPRESSION ASS ESSMENT [facility] Start: 10-27-2022 Plain chest X-ray XR chest 1V portab [facility] Start: 10-27-2022 XR Chest Single view [facility] Start: 07-11-2022 Influenza vaccination [facility] Start: 04-25-2022 End: 06-25-2022 Bacteria identified in Urine by Culture [facility] Work Phone: Comment on above: Expected: 04/25/2022 , Expires: 06/25/2022 Start: 04-24-2022 End: 06-24-2022 25-hydroxyvitamin D3 [Mass/volume] in Serum or Plasma VITAMIN D 25 HYDROXY Lab Routine Vitamin D deficiency Expected: 04/24/2022, Expires: 06/24/2022 [facility] Work Phone: Comment on above: Expected: 04/24/2022 , Expires: 06/24/2022 Start: 04-24-2022 End: 06-24-2022 Comprehensive metabolic 2000 panel - Serum or Plasma COMP METABOLIC PANEL Lab Routine Multiple sclerosis ([facility]) Expected: 04/24/2022, Expires: 06/24/2022 [facility] Work Phone: Comment on above: Expected: 04/24/2022 , Expires: 06/24/2022 Start: 04-24-2022 End: 06-24-2022 IgG [Mass/volume] in Serum or Plasma IGG Lab Routine Multiple sclerosis ([facility]) Expected: 04/24/2022, Expires: 06/24/2022 [facility] Work Phone: Comment on above: Expected: 04/24/2022 , Expires: 06/24/2022 Start: 04-24-2022 End: 06-24-2022 IgM [Mass/volume] in Serum or Plasma IGM Lab Routine Multiple sclerosis ([facility]) Expected: 04/24/2022, Expires: 06/24/2022 [facility] Work Phone: Comment on above: Expected: 04/24/2022 , Expires: 06/24/2022 Start: 04-24-2022 End: 06-24-2022 VARICELLA ZOSTER IGG VARICELLA ZOSTER IGG Lab Routine Multiple sclerosis (HCC) Expected: 04/24/2022, Expires: 06/24/2022 [facility] Work Phone: Comment on above: Expected: 04/24/2022 , Expires: 06/24/2022 Start: 02-08-2022 Adult depression screening assessment DEPRESSION SCREENING [facility] Start: 11-10-2021 DEPRESSION ASSESSMENT DEPRESSION ASS ESSMENT [facility] Start: 01-05-2020 Echocardiography Echocardiogram [facility] ardi[facility]-[place] [address] Work Phone: Start: 2015 HPV TESTING HPV TESTING [facility] Start: 2015 Screening for malign ant neoplasm of cervix HPV Testing [facility] Start: 2006 Screening for malign ant neoplasm of cervix HPV/Cotest [facility] Start: 2004 Hepatitis B Vaccines (1 of 3 - 19+ 3-dose series) Hepatitis B Vaccines (1 of 3 - 19+ 3-dose series) [facility] Start: 2003 Anxiety Screening Anxiety Screening [facility] Start: 2003 Depression Screening Depression Scre ening [facility] Start: 1998 Varicella vaccination Varicell a Vaccines (1 of 2 - 13+ 2-dose series) [facility] Start: 1990 COVID-19 VACCINE (#1) COVID-19 VACCI NE (#1) [facility] Start: 1990 COVID-19 VACCINE (1) COVID-19 VACCIN E (1) [facility] Start: 1986 MMR Vaccines (1 of 1 - Standard series) MMR Vaccines (1 of 1 - Standard series) [facility] Start: 02-01-1986 COVID-19 VACCINE (#1) COVID-19 VACCI NE (#1) [facility] Start: 1985 Annual wellness visit [facility] Start: 1985 HEPATITIS B (1 of 3 - 3-dose series) HEPATITIS B (1 of 3 - 3-dose series) [facility] Start: 1985 Lipid panel Lipid Panel [facility] Start: 1985 Medicare Annual Well ness Visit Medicare Annual Wellness Visit (AWV) [facility] 25-hydroxyvitamin D3 [Mass/volume] in Serum or Plasma VITAMIN D 25 HYDROXY Lab Routine Vitamin D deficiency 04/25/2022 11:12 AM EDT [facility] Work Phone: Bacteria identified in Genital specimen by Aerobe culture [facility] Work Phone: Comprehensive metabo lic 2000 panel - Serum or Plasma COMP METABOLIC PANEL Lab Routine Multiple sclerosis ([facility]) 04/25/2022 11:12 AM EDT [facility] Work Phone: ECG COMPLETE ECG COMPLETE ECG Routine Vasovagal syncope Ordered: 07/19/2024 [facility] Work Phone: Comment on above: Ordered: 07/19/2024 End: 04-25-2023 EPIL EEG ROUTINE EPIL EEG ROUTINE NEUROLOGY Routine Multiple sclerosis ([facility]) 1 Occurrences starting 04/25/2022 until 04/25/2023 [facility] Work Phone: Comment on above: 1 Occurrences starti ng 04/25/2022 until 04/25/2023 Glucose measurement estimated from glycated hemoglobin [facility] End: 06-08-2025 HOME SLEEP APNEA TEST (HSAT) HOME SLEEP APNEA TEST (HSAT) Procedures Routine Snoring Chronic insomnia Malaise and fatigue At risk for obstructive sleep apnea 1 Occurrences starting 06/08/2024 until 06/08/2025 [facility] Work Phone: Comment on above: 1 Occurrences starti ng 06/08/2024 until 06/08/2025 IgG [Mass/volume] in Serum or Plasma IGG Lab Routine Multiple sclerosis ([facility]) 04/25/2022 11:12 AM EDT [facility] Work Phone: IgM [Mass/volume] in Serum or Plasma IGM Lab Routine Multiple sclerosis ([facility]) 04/25/2022 11:12 AM [facility] Work Phone: End: 01-23-2025 MR Thoracic spine WO and W contrast IV MRI THORACIC SPINE WO/W IVCON Radiology Routine Multiple sclerosis ([facility]) 1 Occurrences starting 12/25/2023 until 01/23/2025 [facility] Work Phone: Comment on above: 1 Occurrences starti ng 12/25/2023 until 01/23/2025 OT PLAN OF CARE CERTIFICATION OT PLAN OF CARE CERTIFICATION Procedures Routine Multiple sclerosis (HCC) Abnormal antibody titer Neurogenic bladder Lack of coordination Ordered: 05/30/2022 [facility] Work Phone: Comment on above: Ordered: 05/30/2022 Patient Education [facility] Work Phone: Patient referral [facility] Work Phone: PT PLAN OF CARE CERTIFICATION PT PLAN OF CARE CERTIFICATION Procedures Routine Abnormality of gait Multiple sclerosis (HCC) Ordered: 07/22/2022 [facility] Work Phone: Comment on above: Ordered: 07/22/2022 SPEECH PLAN OF CARE CERTIFICATION SPEECH PLAN OF CARE CERTIFICATION Procedures Routine Multiple sclerosis (HCC) Cognitive communication deficit Ordered: 05/30/2022 [facility] Work Phone: Comment on above: Ordered: 05/30/2022 SPEECH PLAN OF CARE CERTIFICATION SPEECH PLAN OF CARE CERTIFICATION Procedures Routine Cognitive communication deficit Ordered: 07/22/2022 [facility] Work Phone: Comment on above: Ordered: 07/22/2022 US for US OB follow UP transabdominal approach Imaging Routine Encounter for supervision of normal , unspecified, unspecified trimester 09/17/2024 3:04 PM EST [facility] Service Area Work Phone: VARICELLA ZOSTER IGG VARICELLA Z YARELIS IGG Lab Routine Multiple sclerosis (HCC) 04/25/2022 11:12 AM EDT [facility] Work Phone: End: 04-03-2025 XR Cervical spine AP and Lateral and oblique XR CERV OTHER 4V AP/LAT/OBL Radiology Routine Neck pain 1 Occurrences starting 03/04/2024 until 04/03/2025 [facility] Work Phone: Comment on above: 1 Occurrences starti ng 03/04/2024 until 04/03/2025 XR Cervical spine AP and Lateral and oblique XR CERV OTHER 4V AP/LAT/OBL Radiology Routine Neck pain 03/04/2024 2:13 PM EDT [facility] End: 04-03-2025 XR Lumbar spine 3 Views XR LUMBAR GENERAL 3V AP/LAT/L5-S1 Radiology Routine Chronic midline low back pain without sciatica 1 Occurrences starting 03/04/2024 until 04/03/2025 [facility] Comment on above: 1 Occurrences starti ng 03/04/2024 until 04/03/2025 XR Lumbar spine 3 Views XR LUMBA R GENERAL 3V AP/LAT/L5-S1 Radiology Routine Chronic midline low back pain without sciatica 03/04/2024 2:12 PM EDT [facility] OE-Qogmcbfnwc-L [place] Work Phone: [facility] NEGATED: Highlighted row has been ruled out! Planned Goals not documented NB-Asrkxnityu-Ydrrhd ke [address] Work Phone: Immunizations Immunization Date Immunization Notes Care Provider Jacob bush 11-20-2023 influenza, injectabl e, quadrivalent, preservative free Kenzie [facility] 11-20-2023 influenza virus vaccine, unspecified formulation Kenzie [facility] 01-15-2022 tetanus toxoid, redu minor diphtheria toxoid, and acellular pertussis vaccine, adsorbed Nidia Garcia MD Work Phone: [facility] Payers Date Payer Category Payer Self-pay [id number] 2023 Medicare (Managed Care) [id number] 2023 Private Health Insurance [id number] 2022 Unknown [id number] 2021 Medicare [employer] BY [employer] SNP [id number] 2021-Present [phone] [address] [place] [address] O [id number] 2021 Medicare [id number] 2020 Private Health Insurance [id number] 2020 Medicaid MEDICAID [facility] MEDICAID [id number] 2020-Present [phone] [address] [place] [id number] Medicaid [id number] 2020 Medicaid [id number]. 1.13.159.2.7 .[id number] 2020 Medicaid [id number] 1985 Unknown [id number] 2.16.840.1.041785.3.579.2.7 32 1985 Unknown [id number] 2.16.840.1.621463.3.579.2.1 259 1985 Unknown [id number] 2.16.840.1.914789.3.579.2.1 259 1985 Unknown [id number] 2.16.840.1.852400.3.579.2.1 259 1985 Unknown [id number] 2.16.840.1.511571.3.579.2.1 259 1985 Unknown [id number] 2.16.840.1.174059.3.579.2.1 259 1985 Unknown [id number] 2.16.840.1.521256.3.579.2.1 259 1985 Unknown [id number] 2.16.840.1.765390.3.579.2.1 259 1985 Unknown [id number] 2.16.840.1.288855.3.579.2.1 259 1985 Unknown [id number] 2.16.840.1.427632.3.579.2.1 259 1985 Unknown [id number] 2.16.840.1.833482.3.579.2.1 259 1985 Unknown [id number] 2.16.840.1.358320.3.579.2.1 259 1985 Unknown [id number] 2.16.840.1.725544.3.579.2.1 259 1985 Unknown [id number] 2.16.840.1.946592.3.579.2.1 259 1985 Unknown [id number] 2.16.840.1.576026.3.579.2.1 259 1985 Unknown [id number] 2.16.840.1.888239.3.579.2.1 259 1985 Unknown [id number] 2.16.840.1.636638.3.579.2.1 259 1985 Unknown [id number] 2.16.840.1.772160.3.579.2.1 259 1985 Unknown [id number] 2.16.840.1.492356.3.579.2.1 259 1985 Unknown [id number] 2.16.840.1.035773.3.579.2.1 259 1985 Unknown [id number] 2.16.840.1.761830.3.579.2.1 259 1985 Unknown [id number] 2.16.840.1.988628.3.579.2.1 259 1985 Unknown [id number] 2.16.840.1.191917.3.579.2.1 259 1985 Unknown [id number] 2.16.840.1.667965.3.579.2.1 259 1985 Unknown [id number] 2.16.840.1.485949.3.579.2.1 245 1985 Unknown [id number] 2.16.840.1.783885.3.579.2.1 245 1985 Unknown [id number] 2.16.840.1.917852.3.579.2.1 245 1985 Unknown [id number] 2.16.840.1.878574.3.579.2.1 245 1985 Unknown [id number] 2.16.840.1.180598.3.579.2.1 245 1985 Unknown [id number] 2.16.840.1.549545.3.579.2.1 245 1985 Unknown [id number] 2.16.840.1.002898.3.579.2.1 245 1985 Unknown [id number] 2.16.840.1.179757.3.579.2.1 245 1985 Unknown [id number] 2.16.840.1.526550.3.579.2.1 245 Medicaid [id number] Medicare [id number] Unknown [id number] 2.16.840.1.303903.3.579.2.5 31 Unknown [id number] 2.16.840.1.191275.3.579.2.5 31 Unknown [id number] 2.16.840.1.564058.3.579.2.5 31 Unknown [id number] 2.16.840.1.043124.3.579.2.5 31 Social History Date Type Detail Facility Tobacco smoking stat us KYIS Unknown if ever smoked [facility] Start: 1985 Sex Assigned At Female C [facility] Start: 11-15-2019 End: 08-17-2024 Tobacco smoking status NHIS Never smoked tobacco [facility] Start: 11-15-2019 End: 08-17-2024 Tobacco use and exposure Smokeless tobacco non-user [facility] Start: 01-15-2022 End: 08-30-2024 Alcohol intake Ex-drinker (finding) [facility] Start: 11-15-2019 History SDOH Alcohol Comment occas [facility] Start: 03-16-2022 End: 10-05-2024 Exposure to SARS-CoV-2 (event) Not sure [facility] Start: 04-25-2022 Education 17 [facility] Start: 12-16-2022 History SDOH Alcohol Frequency 1 [facility] Start: 12-16-2022 History SDOH Alcohol Std Drinks 0 [facility] Start: 12-16-2022 History SDOH Social Connections Phone 4 [facility] Start: 12-16-2022 History SDOH Social Connections Membership 2 [facility] Start: 12-16-2022 History SDOH Social Connections Living 7 [facility] Start: 12-16-2022 History SDOH Physica l Activity MPS 3 [facility] Start: 12-16-2022 History SDOH Stress 5 [facility] Start: 12-16-2022 End: 08-17-2024 History of Social function [facility] Start: 12-16-2022 End: 08-17-2024 Social connection and isolation panel [facility] Do you belong to any clubs or organizations such as pentecostal groups, unions, fraternal or athletic groups, or school groups? No [facility] Are you now , , , , never or living with a partner? Never [facility] How often to you hav e a drink containing alcohol? Never [facility] How many standard drinks containing alcohol do you have on a typical day? Patient does not drink [facility] How hard is it for y ou to pay for the very basics like food, housing, medical care, and heating Somewhat hard [facility] Do you feel stress - tense, restless, nervous, or anxious, or unable to sleep at night because your mind is troubled all the time - these days [OSQ] Very much [facility] (I/We) worried wheth er (my/our) food would run out before (I/we) got money to buy more. Often true [facility] Start: 12-23-2020 Gender identity Identifies as female gender (finding) [facility] Start: 12-23-2020 Sexual orientation Heterosexual (fin ding) [facility] History of tobacco use Passive smoker [facility] Start: 12-11-2023 End: 08-17-2024 Alcohol intake Lifetime non-drinker (finding) [facility] Start: 02-04-2024 [facility] NEGATED: Highlighted row - - SZ-Higkcoipwm-Qngob vahid 2300 Work Phone: Goals Date Patient Goal Desired Activity /State Personal health goal Personal health goal Personal health goal Functional Status Date Assessment Result Facility NEGATED: Highlighted row Functional performance Functional status health issues are not documented Disease VI-Jblqjxgyrk-Urqrp vahid 2300 Work Phone: Mental Status Date Assessment Result Facility NEGATED: Highlighted row Cognitive function [Interpretation] Cognitive status health issues are not documented Disease TC-Curwhprhxe-Nfshi ake 2300 Work Phone: Clinical Notes 04-17-2021 to 10-04-2024 ANSON Mon - 10/04/2024 1:40 PM Lulú Caballero LPN - 09/27/2024 2:[address] [...] mometasone (Elocon) 0.1 % cream Daily RT Zjkxjgrh-Acz-Pm-FA (Jenliva /) 1 MG capsule Take by [...] Hypocalcemia Hypoglycemia Low iron MS (multiple sclerosis) ([facility]) Urinary incontinence 2009 HISTORY PAST [...] of: ANSON Mon documented in this encounter [facility] 09-27-2024 History of Present illness Narrative Reason [...] mometasone (Elocon) 0.1 % cream Daily RT Jplndzzs-Hmg-Bk-FA (Jenliva /) 1 MG capsule Take by [...] Hypocalcemia Hypoglycemia Low iron MS (multiple sclerosis) ([facility]) Urinary incontinence 2009 HISTORY PAST MEDICAL HISTORY SOCIAL HISTORY Past Medical History: Diagnosis Date Abnormal Pap smear of cervix 2007 Bacterial vaginosis 2019 Hypocalcemia Hypoglycemia Low iron MS (multiple sclerosis) ([facility]) Urinary incontinence 2009 Social History [...] nursing note reviewed. Exam conducted with a entry level finance present. Vitals: Estimated body mass index is [...] Clarke Hu DO documented in this encounter [facility] 09-22-2024 Note HNO ID: [id number] Author: ESTELLA DUTTON RD Service: ? Author Type: Registered Dietitian Type: Progress Notes Filed: 10/01/2024 16:42 Note Text: [facility] Nutrition Therapy: Virtual Consult - Initial Assessment I have communicated my name and active licensure. The patient?s identity and physical location were verified at the time of this visit. Either the patient or their legal patient registration representative has been informed of the risks [...] Ann Martinez DATE: 09/22/2024 TIME: 8:41 AM [facility] 09-22-2024 History of Present illness Narrative [facility] Nutrition Therapy: Virtual Consult - Initial Assessment I have communicated my name and active licensure. The patient s identity and physical location were verified at the time of this visit. Either the patient or their legal patient registration representative has been informed of the risks [...] TIME: 8:41 AM documented in this encounter [facility] 09-21-2024 History of Present illness Narrative [...] mometasone (Elocon) 0.1 % cream Daily RT Vwdxlfkn-Rds-Xe-FA (Jenliva /) 1 MG capsule Take by [...] Hypocalcemia Hypoglycemia Low iron MS (multiple sclerosis) ([facility]) Urinary incontinence 2009 HISTORY PAST MEDICAL HISTORY SOCIAL HISTORY Past Medical History: Diagnosis Date Abnormal Pap smear of cervix 2007 Bacterial vaginosis 2019 Hypocalcemia Hypoglycemia Low iron MS (multiple sclerosis) ([facility]) Urinary incontinence 2009 Social History [...] nursing note reviewed. Exam conducted with a entry level finance present. Vitals: Estimated body mass index is [...] Clarke Hu DO documented in this encounter [facility] 09-21-2024 History of Present illness Narrative Program_ID:[id number] Access Code: [email or web address] URL: [email or web address] Date: 09-21-2024 Prepared By: Estrella Sorot Program Notes Exercises - Seated Hip Adduction [...] therapeutic exercises was facilitated with verbal cuing. Self-Skilled Nursing Management: 1: discussed importance of focus through [...] Sorto PT, DPT documented in this encounter [facility] 09-21-2024 Note HNO ID: [id number] Author: ESTRELLA SORTO PT, DPT Service: ? [...] therapeutic exercises was facilitated with verbal cuing. Self-Skilled Nursing Management: 1: discussed importance of focus through [...] and agreed upon. Estrella Sorto, PT, DPT [facility] 09-20-2024 Note HNO ID: [id number] Author: IBAN LAZO, PhD Service: ? Author Type: Psychologist Type: Progress Notes Filed: 09/20/2024 14:26 Note Text: Behavioral Sleep Medicine Follow up Iban Lazo, PhD I have communicated my name and active licensure. The patient's identity and physical location were verified at the time of this visit. Either the patient or their legal patient registration representative has been informed of the risks and benefits of -- and alternatives to -- treatment through a remote evaluation and consents to proceed with the evaluation remotely. Contact Method: Zoom Patient Confirmed Address: [address] [place] [address] Patient Confirmed Telephone #: [phone] Time: 40 minutes Individual Psychotherapy Session # [...] for 3-6 months and [facility] 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 Iban Lazo, PhD, Psychologist ([place] license [id number]) [facility] 09-20-2024 History of Present illness Narrative [facility] [...] been reviewed prior to dispensing the medication. Bed Maker Assessment Patient confirmed: Yes Med/dose confirmed: Yes Supplies needed: No supplies needed Missed doses: No Estimated days supply on hand: 1 Delivery method: FedEx Signature required: No Delivery address: [address] [place] [address] APT Delivery date: 09/22/24 Questions or concerns for [...] (FLONASE) 50 mcg/actuation nasal spray Use 1 [place] in each nostril once daily. No current facility-administered medications on file prior to visit. [facility] RX SPECIALTY CLINICAL ASSESSMENT - [...] without relapses Previous disease therapies: - Betaseron 0015-9647 - Copaxone 6813-9219 - Tysabri 2009-Summer 2019 (stopped due to planned ) - Copaxone 8891-5639 (during ) - Ocrevus (02/28/21 through 09/25/23, [...] Kenzie Mccall RPh documented in this encounter [facility] 09-20-2024 Note HNO ID: [id number] Author: KENZIE MCCALL RPh Service: ? Author [...] been reviewed prior to dispensing the medication. Bed Maker Assessment Patient confirmed: Yes Med/dose confirmed: Yes Supplies needed: No supplies needed Missed doses: No Estimated days supply on hand: 1 Delivery method: FedEx Signature required: No Delivery address: [address] [place] [address] APT Delivery date: 09/22/24 Questions or concerns for [...] (FLONASE) 50 mcg/actuation nasal spray Use 1 [place] in each nostril once daily. No current facility-administered medications on file prior to visit. [facility] RX SPECIALTY CLINICAL ASSESSMENT - [...] without relapses Previous disease therapies: - Betaseron 3293-0972 - Copaxone 2707-2805 - Tysabri 2009-Summer 2019 (stopped due to planned ) - Copaxone 9656-5493 (during ) - Ocrevus (02/28/21 through 09/25/23, [...] Treatment Duration: No information available Kenzie Mccall [facility] 09-03-2024 History of Present illness Narrative Program_ID:[id number] Access Code: [email or web address] URL: [email or web address] Date: 09-03-2024 Prepared By: Estrella Sorto Program [...] Goals for Episode of Care: established 09/03/24 Teller in home exercise program. Patient will decrease [...] Planned: 4 Planned Treatment Interventions: Therapeutic exercise (12973), Neuromuscular re-education (68312), Manual therapy (37904), Therapeutic activities (21955), Self-half-way management (51350), Gait Training (14783), Patient/Family/Caregiver Education PLAN FOR NEXT VISIT: Continue [...] Demonstration TREATMENT: PT Treatment Interventions: Therapeutic Exercise, Self-Skilled Nursing Management Evaluation Evaluation Therapeutic Exercise: 1: *seated [...] use of heat and parameters for each. Self-Skilled Nursing Management: 1: educated through diagnosis, prognosis, plan [...] Sorto PT, DPT documented in this encounter [facility] 09-03-2024 Note HNO ID: [id number] Author: ESTRELLA SORTO PT, DPT Service: ? [...] Goals for Episode of Care: established 09/03/24 Teller in home exercise program. Patient will decrease [...] Planned: 4 Planned Treatment Interventions: Therapeutic exercise (98526), Neuromuscular re-education (15260), Manual therapy (35081), Therapeutic activities (75253), Self-half-way management (42387), Gait Training (61817), Patient/Family/Caregiver Education PLAN FOR NEXT VISIT: Continue [...] R Hip Pa (more content not included)... [facility] 09-02-2024 Telephone encounter Note Duplicate message Closing this encounter [facility] 09-02-2024 Miscellaneous Notes Duplicate message Closing this encounter documented in this encounter [facility] 08-30-2024 Note HNO ID: [id number] Author: ART SWENSON OD Service: ? Author Type: ZONING ASSISTANT Type: Progress Notes Filed: 08/30/2024 16:40 Note [...] her +++ August 30, 2024 4:35 PM [facility] 08-30-2024 History of Present illness Narrative ASSESSMENT/PLAN: [...] 2024 4:35 PM documented in this encounter [facility] 08-26-2024 History of Present illness Narrative [...] the morning. cholecalciferol (Vitamin D3) 1.25 MG (99700 UT) tablet Take 1.25 mg by mouth once a week clotrimazole-betamethasone (Lotrisone) cream Apply 1 application topically Daily Apply to affected area daily for 7 days 45 g 0 ergocalciferol (Vitamin D-2) 1.25 MG (26117 UT) capsule Take 50,000 Units by mouth [...] (Elocon) 0.1 % cream Apply topically Daily Xtvsjmus-Eja-Xm-FA (Jenliva /) 1 MG capsule Take by [...] iron MS (multiple sclerosis) (CMS/HCC) Urinary incontinence 2008 Past Surgical History: Procedure [...] tract infection, unspecified type See above. Aleyda WEINSTEIN PA-C documented in this encounter [facility] 08-24-2024 History of Present illness Narrative Reason [...] mometasone (Elocon) 0.1 % cream Daily RT Bjozezwk-Qoc-Cr-FA (Jenliva /) 1 MG capsule Take by [...] Hypocalcemia Hypoglycemia Low iron MS (multiple sclerosis) ([facility]) Urinary incontinence 2009 HISTORY PAST MEDICAL HISTORY SOCIAL HISTORY Past Medical History: Diagnosis Date Abnormal Pap smear of cervix 2007 Bacterial vaginosis 2019 Hypocalcemia Hypoglycemia Low iron MS (multiple sclerosis) ([facility]) Urinary incontinence 2009 Social History [...] nursing note reviewed. Exam conducted with a entry level finance present. Vitals: Estimated body mass index is [...] dipstick manually resulted 3. MS (multiple sclerosis) ([facility]) G35 methylPREDNISolone (Medrol Dospak) 4 [...] of: ANSON Mon documented in this encounter [facility] 08-18-2024 Note HNO ID: [id number] Author: CLARICE ZEPEDA HUC Service: ? Author Type: Health Supervisor Cloth Winding Type: Progress Notes Filed: 08/18/2024 09:03 Note Text: Mialed OTC-Nutritional Suppl order to pt CAROL ANN MARTINEZ [address] [place] [address] [facility] 08-18-2024 History of Present illness Narrative Mialed OTC-Nutritional Suppl order to pt CAROL ANN MARTINEZ [address] [place] [address] documented in this encounter [facility] 08-17-2024 History of Present illness Narrative [...] MD Maternal Medicine documented in this encounter [facility] Work Phone: 08-17-2024 Telephone encounter Note Prescription signed and had to be printed, will send out Letter written and placed in chart Tor Hernandez APRN.CNP August 17, 2024 10:26 AM [facility] 08-17-2024 Miscellaneous Notes Prescription signed and had to be printed, will send out Letter written and placed in chart Tor Hernandez APRN.CNP August 17, 2024 10:26 AM documented in this encounter [facility] 08-16-2024 History of Present illness Narrative [...] been reviewed prior to dispensing the medication. Bed Maker Assessment Patient confirmed: Yes Med/dose confirmed: Yes Supplies needed: No supplies needed Missed doses: No Estimated days supply on hand: (maybe 2 weeks, not sure) Next cycle/dose due: 08/16/24 Copay amount: 0 Payment confirmed: Yes Delivery method: FedEx Signature required: Waived on patient request Delivery address: [address] [place] [address] Delivery date: 08/31/24 Questions or concerns for [...] (FLONASE) 50 mcg/actuation nasal spray Use 1 [place] in each nostril once daily. No current facility-administered medications on file prior to visit. [facility] RX SPECIALTY CLINICAL ASSESSMENT - [...] inject where skin looks healthy. Training video ([employer] no longer supplies nurses for training, or injection devices) PFS supplied and training video https://www.[employer]/injectio n-assistance/dlb-tk-xzmqri DDI none pertinent Vaccines reviewed Est. Tx Plan Start Date: No information available Estimated Start Date Info: No information available Est. Estimated Treatment Duration: No information available Madison Puente ([email or web address]) documented in this encounter [facility] 08-16-2024 Note HNO ID: [id number] Author: KENZIE MCCALL dayana Service: ? Author Type: ? Type: Progress [...] been reviewed prior to dispensing the medication. Bed Maker Assessment Patient confirmed: Yes Med/dose confirmed: Yes Supplies needed: No supplies needed Missed doses: No Estimated days supply on hand: (maybe 2 weeks, not sure) Next cycle/dose due: 08/16/24 Copay amount: 0 Payment confirmed: Yes Delivery method: FedEx Signature required: Waived on patient request Delivery address: [address] [facility] [address] Delivery date: 08/31/24 Questions or concerns for [...] (FLONASE) 50 mcg/actuation nasal spray Use 1 [place] in each nostril once daily. No current facility-administered medications on file prior to visit. [facility] RX SPECIALTY CLINICAL ASSESSMENT - [...] inject where skin looks healthy. Training video ([employer] no longer supplies nurses for training, or injection devices) PFS supplied and training video https://www.[employer]/injectio n-assistance/lwx-za-iuwklw DDI none pertinent Vaccines reviewed Est. Tx Plan Start Date: No information available Estimated Start Date Info: No information available Est. Estimated Treatment Duration: No information available Madison Puente ([employer]ader) [facility] [...] Vitamin (multivitamin) tablet 1 tablet, Oral, Daily Fdzhpebp-Qwc-So-FA (Jenliva /) 1 MG capsule Oral Vit-Fe [...] Hypocalcemia Hypoglycemia Low iron MS (multiple sclerosis) ([facility]) Urinary incontinence 2009 HISTORY PAST MEDICAL HISTORY SOCIAL HISTORY Past Medical History: Diagnosis Date Abnormal Pap smear of cervix 2007 Bacterial vaginosis 2019 Hypocalcemia Hypoglycemia Low iron MS (multiple sclerosis) ([facility]) Urinary incontinence 2009 Social History [...] nursing note reviewed. Exam conducted with a entry level finance present. Vitals: Estimated body mass index is [...] Clarke Hu DO documented in this encounter [facility] 07-30-2024 Note HNO ID: [id number] Author: IBAN LAZO, PhD Service: ? Author Type: Psychologist Type: Progress Notes Filed: 07/30/2024 16:31 Note Text: Behavioral Sleep Medicine Follow up Iban Lazo, PhD I have communicated my name and active licensure. The patient's identity and physical location were verified at the time of this visit. Either the patient or their legal patient registration representative has been informed of the risks and benefits of -- and alternatives to -- treatment through a remote evaluation and consents to proceed with the evaluation remotely. Contact Method: Zoom Patient Confirmed Address: [address] [place] [address] Patient Confirmed Telephone #: [phone] Time: 56 minutes Individual Psychotherapy Session # [...] disorder RLS Multiple sclerosis PROGRESS TO DATE: [facility] Progress: Condition at intake Short Term Condition: [...] hours of bedtime. documented in this encounter [facility] 07-20-2024 Note HNO ID: [id number] Author: GERMANIA WILKINSON MD Service: ? Author Type: Physician Type: Progress Notes Filed: 07/21/2024 15:38 Note Text: [facility] Sleep Disorders Center Follow up/ Established patient visit Date of last visit : 08/19/2023 I have communicated my name and active licensure. The patient's identity and physical location were verified at the time of this visit. Either the patient or their legal patient registration representative has been informed of the risks [...] sorted in reverse-chronological order 04/13/2024 05/23/2024 07/08/2024 Young Harris Sleepiness Scale Score 0 (No clinically significant [...] from the original note were not included. [facility] Center Follow up/ Established patient visit Date of last visit : 08/19/2023 I have communicated my name and active licensure. The patient's identity and physical location were verified at the time of this visit. Either the patient or their legal patient registration representative has been informed of the risks [...] sorted in reverse-chronological order 04/13/2024 05/23/2024 07/08/2024 Young Harris Sleepiness Scale Score 0 (No clinically significant [...] (FLONASE) 50 mcg/actuation nasal spray Use 1 [place] in each nostril once daily. PHYSICAL EXAMINATION: NEUROLOGICAL EXAM: General: Awake, alert, speech fluent, comprehension, naming, repetition intact. 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 IMPRESSION: Primary insomnia (primary encounter diagnosis) Rls (restless legs syndrome) Carol Ann Martinez is a 38 year old female with hx of MS and WINIFRED here for evaluation of insomnia, RLS. She is currently and has come off of trazodone for her insomnia. She is currently taking jzvg-wzi-luxfyix Unisom without much benefit. Her sleep is [...] BSM for CBTi Germania Wilkinson MD Clinical Emergency Room Registered Nurseanimal science instructor [facility] documented in this encounter [facility] 07-19-2024 Note HNO ID: [id number] Author: JANICE LANE MD Service: ? Author [...] the hip. She is not taken anything uqzb-evw-tglvvgi for it. Patient has multiple sclerosis. Her [...] few seconds when she was on a sqzol-yu-ecyyv with her daughter. She told her ROLL OFF DRIVER about the symptoms she has started to [...] the hip. She is not taken anything dzsv-iou-vezevhj for it. Patient has multiple sclerosis. Her [...] few seconds when she was on a fdzrl-ie-nyain with her daughter. She told her ROLL OFF DRIVER about the symptoms she has started to [...] by neurology. - CONSULT TO PHYSICAL THERAPY Gtkbjpcbw-rjgcud-hc with ROLL OFF DRIVER as scheduled. Patient said she is on pelvic rest and limited lifting due to shortened cervix. Viral URI-if symptoms worsen, take amoxicillin Dry skin on the nose-give a trial of Elocon cream Janice Lane MD documented in this encounter [facility] 07-19-2024 History of Present illness Narrative [...] been reviewed prior to dispensing the medication. Bed Maker Assessment Patient confirmed: Yes Med/dose confirmed: Yes Supplies needed: No supplies needed Missed doses: No Estimated days supply on hand: 3 Next cycle/dose due: 07/19/24 Copay amount: 0 Payment confirmed: Yes Delivery method: FedEx Signature required: Waived on patient request Delivery address: [address] [place] [address] Delivery date: 07/23/24 Questions or concerns for [...] (FLONASE) 50 mcg/actuation nasal spray Use 1 [place] in each nostril once daily. No current facility-administered medications on file prior to visit. [facility] RX SPECIALTY CLINICAL ASSESSMENT - [...] inject where skin looks healthy. Training video ([employer] no longer supplies nurses for training, or injection devices) PFS supplied and training video https://www.Cov[employer]/injectio n-assistance/own-jy-edsggb DDI none pertinent Vaccines reviewed Est. Tx Plan Start Date: No information available Estimated Start Date Info: No information available Est. Estimated Treatment Duration: No information available Madison Puente ([email or web address]) documented in this encounter [facility] 07-19-2024 Note HNO ID: [id number] Author: KENZIE MCCALL RPh Service: ? Author [...] been reviewed prior to dispensing the medication. Bed Maker Assessment Patient confirmed: Yes Med/dose confirmed: Yes Supplies needed: No supplies needed Missed doses: No Estimated days supply on hand: 3 Next cycle/dose due: 07/19/24 Copay amount: 0 Payment confirmed: Yes Delivery method: FedEx Signature required: Waived on patient request Delivery address: [address] [place] [address] Delivery date: 07/23/24 Questions or concerns for [...] (FLONASE) 50 mcg/actuation nasal spray Use 1 [place] in each nostril once daily. No current facility-administered medications on file prior to visit. [facility] RX SPECIALTY CLINICAL ASSESSMENT - [...] inject where skin looks healthy. Training video ([employer] no longer supplies nurses for training, or injection devices) PFS supplied and training video https://www.Cov[employer]/injectio n-assistance/hfa-mg-nktmje DDI none pertinent Vaccines reviewed Est. Tx Plan Start Date: No information available Estimated Start Date Info: No information (more content not included)... [facility] 07-08-2024 Note HNO ID: [id number] Author: IBAN LAZO, PhD Service: ? Author Type: Psychologist Type: Progress Notes Filed: 07/08/2024 14:21 Note Text: Behavioral Sleep Medicine Follow up Iban Lazo, PhD I have communicated my name and active licensure. The patient's identity and physical location were verified at the time of this visit. Either the patient or their legal patient registration representative has been informed of the risks and benefits of -- and alternatives to -- treatment through a remote evaluation and consents to proceed with the evaluation remotely. Contact Method: Zoom and Doximity (switched to Doximity after Zoom connection issues) Patient Confirmed Address: [address] [place] [address] Patient Confirmed Telephone #: [phone] Time: 55 minutes Individual Psychotherapy Session # [...] disorder RLS Multiple sclerosis PROGRESS TO DATE: [facility] Progress: Condition at intake Short Term Condition: [...] of HSAT results Iban Lazo, PhD, Psychologist ([place] license [id number]) [facility] 06-22-2024 Note HNO ID: [id number] Author: NATALIE NEWBERRY RPh Service: ? Author [...] disease state markers and outcomes. Natalie Newberry RPh Bed Maker Assessment Patient confirmed: Yes Med/dose confirmed: Yes Supplies needed: No supplies needed Missed doses: No Estimated days supply on hand: 7 Next cycle/dose due: 06/23/24 Copay amount: 0 Delivery method: FedEx Signature required: Waived on patient request Delivery address: [address] [place] [address] Delivery date: 06/25/24 Questions or concerns for [...] (FLONASE) 50 mcg/actuation nasal spray Use 1 [place] in each nostril once daily. No current facility-administered medications on file prior to visit. [facility] RX SPECIALTY CLINICAL ASSESSMENT - [...] inject where skin looks healthy. Training video ([employer] no longer supplies nurses for training, or injection devices) PFS supplied and training video https://www.Covarity/injectio n-assistance/wyh-sn-kbbifs DDI none pertinent Vaccines reviewed Est. Tx [...] and Friday. Authorizing Provider: TOR HERNANDEZ APRN.CNP [facility] 06-22-2024 Miscellaneous Notes The following approved [...] Marcin Ervin RPh documented in this encounter [facility] 06-22-2024 Telephone encounter Note Patient is in need of a new prescription as follows: Requested Prescriptions Pending Prescriptions Disp Refills glatiramer (COPAXONE) 40 mg/mL injection 12 mL 5 Sig: Inject 40 mg subcutaneously every Friday, Friday, and Friday. Last office visit 06-09-24 Please review and advise. Marcin Ervin RPh [facility] 06-16-2024 Note HNO ID: [id number] Author: JOSR VICENTE, PhD Service: ? Author [...] Circadian Rhythm delayed. Procedure: Actigraphy (CPT code 29368) Reason for study: sleep pattern Length of study: This study was performed for: 2 weeks Dates of Actigraphy study: From 05/27/2024 To 06/10/2024 Technical quality of the recording: An Actigraphy GTX was used for this study. There were no apparent technical issues with the recording. 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 [place] : Josr Vicente, PhD, [facility] Psychologist ([place] License [id number]) Behavioral Sleep Medicine Disclosure: There are limitations of actigraphy data. This test is not a measure of daytime sleepiness or insomnia. Findings may suggest the etiology of sleepiness due to an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 testing Clarke Hu DO [address] [facility] [address], [place] [address] Referral ID Status Reason Start Date Expiration Date Visits Requested Visits Authorized [id number] Authorized Perform Procedure 08/17/2024 08/17/2025 1 1 Specialty Diagnoses / Procedures Referred By Contac t Referred To Contact PHYSICAL THERAPY Diagnoses Right hip pain Procedures PT REHAB FOLLOW UP ORDER THERAPEUTIC EXERCISES RE, EA 15 MIN. Estrella Sorto, PT, DPT [address] [facility] [address] [place] [address] [facility] [address] [place] [address] Referral ID Status Reason Start Date Expiration Date Visits Requested Visits Authorized [id number] New Request PCP Requested Referral Auto-Generate d Referral 4 12/02/2024 1 1 Health Concerns Infection Onset Date Last Indicated Resolved Time COVID-19 Rule-Out 02/12/2023 02/12/2023 Additional Source Comments INFORMATION SOURCE (unrecogn ized section and content) DATE CREATED AUTHOR 10/03/[address] [facility] DATE CREATED AUTHOR AUTHOR'S ORGANIZ ATION 01/05/2021 [facility] DATE CREATED AUTHOR AUTHOR'S ORGANIZ ATION 01/05/2021 [employer] DATE CREATED AUTHOR AUTHOR'S ORGANIZ ATION 12/17/2021 [facility] DATE CREATED AUTHOR AUTHOR'S ORGANIZ ATION 03/31/2022 [facility] DATE CREATED AUTHOR AUTHOR'S ORGANIZ ATION 01/25/2023 [facility] DATE CREATED AUTHOR AUTHOR'S ORGANIZ ATION 04/05/2024 [facility] DATE CREATED AUTHOR AUTHOR'S ORGANIZ ATION 10/05/2024 [facility] DATE CREATED AUTHOR AUTHOR'S ORGANIZ ATION 10/06/2024 [facility] Specialists EPIC DATE CREATED AUTHOR AUTHOR'S ORGANIZ ATION 10/08/2024 [facility] Source Comments (unrecognize d section and content) In the event this informatio n is protected by the Federal Confidentiality of Alcohol and Drug Abuse Patient Records regulations: The Federal rules restrict any use of the information to criminally investigate or prosecute any alcohol or drug abuse patient.[facility] the event this information is protected by the Federal Confidentiality of Alcohol and Drug Abuse Patient Records regulations: The Federal rules restrict any use of the information to criminally investigate or prosecute any alcohol or drug abuse patient.[facility] the event this information is protected by the Federal Confidentiality of Alcohol and Drug Abuse Patient Records regulations: The Federal rules restrict any use of the information to criminally investigate or prosecute any alcohol or drug abuse patient.[facility] CenterIn the event this information is protected by the Federal Confidentiality of Alcohol and Drug Abuse Patient Records regulations: The Federal rules restrict any use of the information to criminally investigate or prosecute any alcohol or drug abuse patient.[facility] CenterIn the event this information is protected by the Federal Confidentiality of Alcohol and Drug Abuse Patient Records regulations: The Federal rules restrict any use of the information to criminally investigate or prosecute any alcohol or drug abuse patient.[facility] CenterIn the event this information is protected by the Federal Confidentiality of Alcohol and Drug Abuse Patient Records regulations: The Federal rules restrict any use of the information to criminally investigate or prosecute any alcohol or drug abuse patient.[facility] CenterIn the event this information is protected by the Federal Confidentiality of Alcohol and Drug Abuse Patient Records regulations: The Federal rules restrict any use of the information to criminally investigate or prosecute any alcohol or drug abuse patient.[facility] CenterIn the event this information is protected by the Federal Confidentiality of Alcohol and Drug Abuse Patient Records regulations: The Federal rules restrict any use of the information to criminally investigate or prosecute any alcohol or drug abuse patient.[facility] CenterIn the event this information is protected by the Federal Confidentiality of Alcohol and Drug Abuse Patient Records regulations: The Federal rules restrict any use of the information to criminally investigate or prosecute any alcohol or drug abuse patient.[facility] CenterIn the event this information is protected by the Federal Confidentiality of Alcohol and Drug Abuse Patient Records regulations: The Federal rules restrict any use of the information to criminally investigate or prosecute any alcohol or drug abuse patient.[facility] CenterIn the event this information is protected by the Federal Confidentiality of Alcohol and Drug Abuse Patient Records regulations: The Federal rules restrict any use of the information to criminally investigate or prosecute any alcohol or drug abuse patient.[facility] CenterIn the event this information is protected by the Federal Confidentiality of Alcohol and Drug Abuse Patient Records regulations: The Federal rules restrict any use of the information to criminally investigate or prosecute any alcohol or drug abuse patient.[facility] CenterIn the event this information is protected by the Federal Confidentiality of Alcohol and Drug Abuse Patient Records regulations: The Federal rules restrict any use of the information to criminally investigate or prosecute any alcohol or drug abuse patient.[facility] CenterIn the event this information is protected by the Federal Confidentiality of Alcohol and Drug Abuse Patient Records regulations: The Federal rules restrict any use of the information to criminally investigate or prosecute any alcohol or drug abuse patient.[facility] CenterIn the event this information is protected by the Federal Confidentiality of Alcohol and Drug Abuse Patient Records regulations: The Federal rules restrict any use of the information to criminally investigate or prosecute any alcohol or drug abuse patient.[facility] CenterIn the event this information is protected by the Federal Confidentiality of Alcohol and Drug Abuse Patient Records regulations: The Federal rules restrict any use of the information to criminally investigate or prosecute any alcohol or drug abuse patient.[facility] CenterIn the event this information is protected by the Federal Confidentiality of Alcohol and Drug Abuse Patient Records regulations: The Federal rules restrict any use of the information to criminally investigate or prosecute any alcohol or drug abuse patient.[facility] CenterIn the event this information is protected by the Federal Confidentiality of Alcohol and Drug Abuse Patient Records regulations: The Federal rules restrict any use of the information to criminally investigate or prosecute any alcohol or drug abuse patient.[facility] CenterIn the event this information is protected by the Federal Confidentiality of Alcohol and Drug Abuse Patient Records regulations: The Federal rules restrict any use of the information to criminally investigate or prosecute any alcohol or drug abuse patient.[facility] CenterIn the event this information is protected by the Federal Confidentiality of Alcohol and Drug Abuse Patient Records regulations: The Federal rules restrict any use of the information to criminally investigate or prosecute any alcohol or drug abuse patient.[facility] CenterIn the event this information is protected by the Federal Confidentiality of Alcohol and Drug Abuse Patient Records regulations: The Federal rules restrict any use of the information to criminally investigate or prosecute any alcohol or drug abuse patient.[facility] CenterIn the event this information is protected by the Federal Confidentiality of Alcohol and Drug Abuse Patient Records regulations: The Federal rules restrict any use of the information to criminally investigate or prosecute any alcohol or drug abuse patient.[facility] CenterIn the event this information is protected by the Federal Confidentiality of Alcohol and Drug Abuse Patient Records regulations: The Federal rules restrict any use of the information to criminally investigate or prosecute any alcohol or drug abuse patient.[facility]In the event this information is protected by the Federal Confidentiality of Alcohol and Drug Abuse Patient Records regulations: The Federal rules restrict any use of the information to criminally investigate or prosecute any alcohol or drug abuse patient.[facility] CenterIn the event this information is protected by the Federal Confidentiality of Alcohol and Drug Abuse Patient Records regulations: The Federal rules restrict any use of the information to criminally investigate or prosecute any alcohol or drug abuse patient.[facility]In the event this information is protected by the Federal Confidentiality of Alcohol and Drug Abuse Patient Records regulations: The Federal rules restrict any use of the information to criminally investigate or prosecute any alcohol or drug abuse patient.[facility] CenterIn the event this information is protected by the Federal Confidentiality of Alcohol and Drug Abuse Patient Records regulations: The Federal rules restrict any use of the information to criminally investigate or prosecute any alcohol or drug abuse patient.[facility]In the event this information is protected by the Federal Confidentiality of Alcohol and Drug Abuse Patient Records regulations: The Federal rules restrict any use of the information to criminally investigate or prosecute any alcohol or drug abuse patient.[facility]In the event this information is protected by the Federal Confidentiality of Alcohol and Drug Abuse Patient Records regulations: The Federal rules restrict any use of the information to criminally investigate or prosecute any alcohol or drug abuse patient.[facility]In the event this information is protected by the Federal Confidentiality of Alcohol and Drug Abuse Patient Records regulations: The Federal rules restrict any use of the information to criminally investigate or prosecute any alcohol or drug abuse patient.[facility]In the event this information is protected by the Federal Confidentiality of Alcohol and Drug Abuse Patient Records regulations: The Federal rules restrict any use of the information to criminally investigate or prosecute any alcohol or drug abuse patient.[facility]In the event this information is protected by the Federal Confidentiality of Alcohol and Drug Abuse Patient Records regulations: The Federal rules restrict any use of the information to criminally investigate or prosecute any alcohol or drug abuse patient.[facility]In the event this information is protected by the Federal Confidentiality of Alcohol and Drug Abuse Patient Records regulations: The Federal rules restrict any use of the information to criminally investigate or prosecute any alcohol or drug abuse patient.[facility]In the event this information is protected by the Federal Confidentiality of Alcohol and Drug Abuse Patient Records regulations: The Federal rules restrict any use of the information to criminally investigate or prosecute any alcohol or drug abuse patient.[facility]In the event this information is protected by the Federal Confidentiality of Alcohol and Drug Abuse Patient Records regulations: The Federal rules restrict any use of the information to criminally investigate or prosecute any alcohol or drug abuse patient.[facility]In the event this information is protected by the Federal Confidentiality of Alcohol and Drug Abuse Patient Records regulations: The Federal rules restrict any use of the information to criminally investigate or prosecute any alcohol or drug abuse patient.[facility]In the event this information is protected by the Federal Confidentiality of Alcohol and Drug Abuse Patient Records regulations: The Federal rules restrict any use of the information to criminally investigate or prosecute any alcohol or drug abuse patient.[facility]In the event this information is protected by the Federal Confidentiality of Alcohol and Drug Abuse Patient Records regulations: The Federal rules restrict any use of the information to criminally investigate or prosecute any alcohol or drug abuse patient.[facility]In the event this information is protected by the Federal Confidentiality of Alcohol and Drug Abuse Patient Records regulations: The Federal rules restrict any use of the information to criminally investigate or prosecute any alcohol or drug abuse patient.[facility]In the event this information is protected by the Federal Confidentiality of Alcohol and Drug Abuse Patient Records regulations: The Federal rules restrict any use of the information to criminally investigate or prosecute any alcohol or drug abuse patient.[facility]In the event this information is protected by the Federal Confidentiality of Alcohol and Drug Abuse Patient Records regulations: The Federal rules restrict any use of the information to criminally investigate or prosecute any alcohol or drug abuse patient.[facility]In the event this information is protected by the Federal Confidentiality of Alcohol and Drug Abuse Patient Records regulations: The Federal rules restrict any use of the information to criminally investigate or prosecute any alcohol or drug abuse patient.[facility]In the event this information is protected by the Federal Confidentiality of Alcohol and Drug Abuse Patient Records regulations: The Federal rules restrict any use of the information to criminally investigate or prosecute any alcohol or drug abuse patient.[facility]In the event this information is protected by the Federal Confidentiality of Alcohol and Drug Abuse Patient Records regulations: The Federal rules restrict any use of the information to criminally investigate or prosecute any alcohol or drug abuse patient.[facility]In the event this information is protected by the Federal Confidentiality of Alcohol and Drug Abuse Patient Records regulations: The Federal rules restrict any use of the information to criminally investigate or prosecute any alcohol or drug abuse patient.[facility]In the event this information is protected by the Federal Confidentiality of Alcohol and Drug Abuse Patient Records regulations: The Federal rules restrict any use of the information to criminally investigate or prosecute any alcohol or drug abuse patient.[facility]In the event this information is protected by the Federal Confidentiality of Alcohol and Drug Abuse Patient Records regulations: The Federal rules restrict any use of the information to criminally investigate or prosecute any alcohol or drug abuse patient.[facility]In the event this information is protected by the Federal Confidentiality of Alcohol and Drug Abuse Patient Records regulations: The Federal rules restrict any use of the information to criminally investigate or prosecute any alcohol or drug abuse patient.[facility]In the event this information is protected by the Federal Confidentiality of Alcohol and Drug Abuse Patient Records regulations: The Federal rules restrict any use of the information to criminally investigate or prosecute any alcohol or drug abuse patient.[facility]In the event this information is protected by the Federal Confidentiality of Alcohol and Drug Abuse Patient Records regulations: The Federal rules restrict any use of the information to criminally investigate or prosecute any alcohol or drug abuse patient.[facility]In the event this information is protected by the Federal Confidentiality of Alcohol and Drug Abuse Patient Records regulations: The Federal rules restrict any use of the information to criminally investigate or prosecute any alcohol or drug abuse patient.[facility]In the event this information is protected by the Federal Confidentiality of Alcohol and Drug Abuse Patient Records regulations: The Federal rules restrict any use of the information to criminally investigate or prosecute any alcohol or drug abuse patient.[facility]In the event this information is protected by the Federal Confidentiality of Alcohol and Drug Abuse Patient Records regulations: The Federal rules restrict any use of the information to criminally investigate or prosecute any alcohol or drug abuse patient.[facility]In the event this information is protected by the Federal Confidentiality of Alcohol and Drug Abuse Patient Records regulations: The Federal rules restrict any use of the information to criminally investigate or prosecute any alcohol or drug abuse patient.[facility]In the event this information is protected by the Federal Confidentiality of Alcohol and Drug Abuse Patient Records regulations: The Federal rules restrict any use of the information to criminally investigate or prosecute any alcohol or drug abuse patient.[facility]In the event this information is protected by the Federal Confidentiality of Alcohol and Drug Abuse Patient Records regulations: The Federal rules restrict any use of the information to criminally investigate or prosecute any alcohol or drug abuse patient.[facility]In the event this information is protected by the Federal Confidentiality of Alcohol and Drug Abuse Patient Records regulations: The Federal rules restrict any use of the information to criminally investigate or prosecute any alcohol or drug abuse patient.[facility]In the event this information is protected by the Federal Confidentiality of Alcohol and Drug Abuse Patient Records regulations: The Federal rules restrict any use of the information to criminally investigate or prosecute any alcohol or drug abuse patient.[facility]In the event this information is protected by the Federal Confidentiality of Alcohol and Drug Abuse Patient Records regulations: The Federal rules restrict any use of the information to criminally investigate or prosecute any alcohol or drug abuse patient.[facility]In the event this information is protected by the Federal Confidentiality of Alcohol and Drug Abuse Patient Records regulations: The Federal rules restrict any use of the information to criminally investigate or prosecute any alcohol or drug abuse patient.[facility]In the event this information is protected by the Federal Confidentiality of Alcohol and Drug Abuse Patient Records regulations: The Federal rules restrict any use of the information to criminally investigate or prosecute any alcohol or drug abuse patient.[facility]In the event this information is protected by the Federal Confidentiality of Alcohol and Drug Abuse Patient Records regulations: The Federal rules restrict any use of the information to criminally investigate or prosecute any alcohol or drug abuse patient.[facility]In the event this information is protected by the Federal Confidentiality of Alcohol and Drug Abuse Patient Records regulations: The Federal rules restrict any use of the information to criminally investigate or prosecute any alcohol or drug abuse patient.[facility]In the event this information is protected by the Federal Confidentiality of Alcohol and Drug Abuse Patient Records regulations: The Federal rules restrict any use of the information to criminally investigate or prosecute any alcohol or drug abuse patient.[facility]In the event this information is protected by the Federal Confidentiality of Alcohol and Drug Abuse Patient Records regulations: The Federal rules restrict any use of the information to criminally investigate or prosecute any alcohol or drug abuse patient.[facility]In the event this information is protected by the Federal Confidentiality of Alcohol and Drug Abuse Patient Records regulations: The Federal rules restrict any use of the information to criminally investigate or prosecute any alcohol or drug abuse patient.[facility]In the event this information is protected by the Federal Confidentiality of Alcohol and Drug Abuse Patient Records regulations: The Federal rules restrict any use of the information to criminally investigate or prosecute any alcohol or drug abuse patient.[facility]In the event this information is protected by the Federal Confidentiality of Alcohol and Drug Abuse Patient Records regulations: The Federal rules restrict any use of the information to criminally investigate or prosecute any alcohol or drug abuse patient.[facility]In the event this information is protected by the Federal Confidentiality of Alcohol and Drug Abuse Patient Records regulations: The Federal rules restrict any use of the information to criminally investigate or prosecute any alcohol or drug abuse patient.[facility]In the event this information is protected by the Federal Confidentiality of Alcohol and Drug Abuse Patient Records regulations: The Federal rules restrict any use of the information to criminally investigate or prosecute any alcohol or drug abuse patient.[facility]In the event this information is protected by the Federal Confidentiality of Alcohol and Drug Abuse Patient Records regulations: The Federal rules restrict any use of the information to criminally investigate or prosecute any alcohol or drug abuse patient.[facility]In the event this information is protected by the Federal Confidentiality of Alcohol and Drug Abuse Patient Records regulations: The Federal rules restrict any use of the information to criminally investigate or prosecute any alcohol or drug abuse patient.[facility]In the event this information is protected by the Federal Confidentiality of Alcohol and Drug Abuse Patient Records regulations: The Federal rules restrict any use of the information to criminally investigate or prosecute any alcohol or drug abuse patient.[facility]In the event this information is protected by the Federal Confidentiality of Alcohol and Drug Abuse Patient Records regulations: The Federal rules restrict any use of the information to criminally investigate or prosecute any alcohol or drug abuse patient.[facility]In the event this information is protected by the Federal Confidentiality of Alcohol and Drug Abuse Patient Records regulations: The Federal rules restrict any use of the information to criminally investigate or prosecute any alcohol or drug abuse patient.[facility]In the event this information is protected by the Federal Confidentiality of Alcohol and Drug Abuse Patient Records regulations: The Federal rules restrict any use of the information to criminally investigate or prosecute any alcohol or drug abuse patient.[facility]In the event this information is protected by the Federal Confidentiality of Alcohol and Drug Abuse Patient Records regulations: The Federal rules restrict any use of the information to criminally investigate or prosecute any alcohol or drug abuse patient.[facility]In the event this information is protected by the Federal Confidentiality of Alcohol and Drug Abuse Patient Records regulations: The Federal rules restrict any use of the information to criminally investigate or prosecute any alcohol or drug abuse patient.[facility]In the event this information is protected by the Federal Confidentiality of Alcohol and Drug Abuse Patient Records regulations: The Federal rules restrict any use of the information to criminally investigate or prosecute any alcohol or drug abuse patient.[facility]In the event this information is protected by the Federal Confidentiality of Alcohol and Drug Abuse Patient Records regulations: The Federal rules restrict any use of the information to criminally investigate or prosecute any alcohol or drug abuse patient.[facility]In the event this information is protected by the Federal Confidentiality of Alcohol and Drug Abuse Patient Records regulations: The Federal rules restrict any use of the information to criminally investigate or prosecute any alcohol or drug abuse patient.[facility]In the event this information is protected by the Federal Confidentiality of Alcohol and Drug Abuse Patient Records regulations: The Federal rules restrict any use of the information to criminally investigate or prosecute any alcohol or drug abuse patient.[facility]In the event this information is protected by the Federal Confidentiality of Alcohol and Drug Abuse Patient Records regulations: The Federal rules restrict any use of the information to criminally investigate or prosecute any alcohol or drug abuse patient.[facility]In the event this information is protected by the Federal Confidentiality of Alcohol and Drug Abuse Patient Records regulations: The Federal rules restrict any use of the information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 10/26/23 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 Keyholder Relationship Specialty Start Date End Date Janice [address] MD [address] [place] [address] PCP - General Family Medicine 12/09/19 Marcin Ervin, [facility] 05/30/24 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 Keyholder Relationship Specialty Start Date End Date Janice [address] MD [address] [place] [address] PCP - General Family Medicine 12/09/19 Marcin Ervin, [facility] 05/30/24 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 Keyholder Relationship Specialty [place] [address] [place] [address] PCP - General Pediatrics 10/26/23 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 Keyholder Relationship Specialty [place] [address] [place] [address] PCP - General 12/13/19 Nataly Tripathi APRN-VP [address] [place] [address] Communications Strategist Obstetrics 06/16/24 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 Keyholder Relationship Specialty [place] [address] [place] [address] PCP - General Pediatrics 10/26/23 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 Keyholder Relationship Specialty Start Date End [place] [address] [address] [place] [id number] [place] [id number] PCP - General Pediatrics 10/26/23 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 Keyholder Relationship Specialty [place] [address] [place] [address] PCP - General Pediatrics 10/26/23 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 Keyholder Relationship Specialty Start [place] [address] [place] [address] PCP - General Pediatrics 10/26/23 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 Keyholder Relationship Specialty [place] [address] [place] [address] PCP - General 12/13/19 Nataly Tripathi APRN-VP [address] [place] [address] Communications Strategist Obstetrics 06/16/24 Goals (unrecognized section and content) Goals may [...] BE BASED ON THE PRIMARY CLINICAL RECORDS. [facility]. provides no warranty or guarantee of the accuracy or completeness of information in this document.
[2024-10-08 17:28] VITALS: BP 108/81; PULSE 93
== END 2024-10-08 18:15 | disposition home or self-care (01) ==
LOC: FBCO 08:38 → FBC 17:14
PROVIDERS: Visit Provider Obstetrics & Gynecology
DX: O09.523 Supervision of elderly multigravida, third trimester (principal); Z3A.34 34 weeks gestation of pregnancy
CPT/HCPCS: 59025

== ENCOUNTER 2024-10-12 07:24 | Outpatient (OUT) | payer MEDICARE, MEDICAID, SELFPAY ==
--- OUTSIDE RECORDS SUMMARY | 2024-10-12 07:31 | XMS_ITS | CCD ---
Author Organization [facility] CliniSyme Care Team Providers Care Copper Tapper Name Role Phone NON, STAFF Primary Care [...] Primary Care Provider Clarke Hu Attending Provider [phone] MD Primary Care Provider [...] Unavailable Janice Lane Primary Care Unavailable Ada [facility], Marcin Unavailable Unavailable Janice Lane MD Primary Care Provider Deuce PROFESSOR OF NURSING-SYSTEMS ADMINISTRATOR, Nataly Mt Unavailable JANICE LANE Primary Care [...] Unavailable RIMA, JANICE Hoover Primary Care Unavailable SELF Referring Unavailable CHAMP LEON Attending Unavailable JANICE LANE Primary Care Unavailable JANICE LANE Attending Unavailable RIMA, JANICE Hoover Primary Care Unavailable RIMA, JANICE Hoover Referring Unavailable JANICE LANE Primary Care Unavailable GERMANIA WILKINSON Attending Unavailable RIMA, JANICE Hoover Primary Care Unavailable SELF Referring Unavailable IBAN [...] Other: See Comments, Unknown, Itching, GI Upset [facility] Soy (1 source) Soy protein Food Allergy 0 Intolerance [facility] Soybean Lecithin (1 source) Soybean Lecithin Drug Allergy 2 GI Upset, Unknown [facility] Wheat gluten extract (1 source) Wheat gluten extract Drug Allergy 9 Other: See Comments, Hives, Itching [facility] (2 sources) glutenin; Translations: [GLUTEN] Allergy to substance (finding) 9 [facility] Repository (20 sources) Soy protein; Translations: [SOY ALLERGY] Propensity to adverse reactions to drug (disorder) 0 Headache, Unknown [facility] Repository (20 sources) GLUTEN MEAL; Translations: [GLUTEN MEAL] Propensity to adverse reactions to drug (disorder) 9 Hives, Itching, Unknown [facility] Repository (1 source) LECITHIN ORGANIC-SOYBEAN LECITHIN; Translations: [LECITHIN ORGANIC-SOYBEAN LECITHIN] Propensity to adverse reactions to drug (disorder) 9 [facility] Repository (20 sources) Lecithin; Translations: [LECITHIN] Drug Allergy 9 Other: See Comments, Unknown, Itching, GI Upset, Nausea And Vomiting [facility] Work Phone: (20 sources) Soy protein; Translations: [SOY] Drug Intolerance 0 Intolerance [facility] (20 sources) Wheat gluten extract Drug Allergy 9 Other: See Comments, Hives, Itching [facility] (20 sources) Soybean Lecithin; Translations: [LECITHIN, SOY] Drug Allergy 2 GI Upset, Unknown [facility] (20 sources) Other Allergy to substance 0 Headache [facility] (1 source) ALLERGIES NOT ON FILE; Translations: [ALLERGIES NOT ON FILE] Propensity to adverse reactions (disorder) [facility] Medications Current Medications Medication Drug Class(es) Dates Sig (Normalized) Sig (Original) acetaminophen 325 mg oral tablet (13 sources) Start: 01-11-2021 End: 08-08-2022 take 2 tablets by mouth every four hours as needed acetaminophen (TYLENOL) 325 mg tablet Take 2 tablets by mouth every 4 hours as needed. 40 tablet 0 01/11/2021 08/08/2022 Discontinued Comment on above: Take 2 tablets by mo [facility] every 4 hours as needed. amoxicillin 875 [...] Comment on above: Take 1,000 mg by [facility] two times a day. B Complex-C [...] Start: 04-09-2019 take 1 capsule by mo [facility] once daily Cholecalciferol (Vitamin D3) (Vitamin D3) 1,000 unit Capsule Active 1000 UNIT PO Daily April 09, 2019 12:00am take 1 tablet by [facility] every week cholecalciferol (Vitamin D3) 1.25 MG (53609 UT) tablet Take 1.25 mg by mouth once a week Active Comment on above: Take 1 capsule by [facility] one time a week. diphenhydrAMINE hydrochloride [...] every week ergocalciferol (Vitamin D-2) 1.25 MG (82072 UT) capsule Take 50,000 Units by mouth once a week. 07/31/2023 Active Start: 08-08-2022 take 1 capsule by [facility] every week ergocalciferol 50,000 unit capsule (VITAMIN D2, DRISDOL) Take 1 capsule by mouth one time a week. 12 capsule 3 08/08/2022 Active Comment on above: Take 1 capsule by [facility] one time a week. ferrous sulfate 325 mg oral tablet (20 sources) Start: 02-13-2023 End: 03-15-2023 take 1 tablet by mouth once daily ferrous sulfate 325 mg (65 mg iron) tablet Indications: Iron deficiency anemia due to chronic blood loss Take 1 tablet by mouth once daily. 30 tablet 1 02/13/2023 03/15/2023 Active take 1 tablet by mouth in the [facility] Ferrous Sulfate (IRON PO) Take 1 tablet by mouth in the morning. Active FERROUS SULFATE ORAL Take by mouth every 24 hours. Active FERROUS SULFATE ORAL Take by mouth every 24 hours. 0 Active take 1 tablet by mouth in the [facility] Ferrous Sulfate (IRON PO) Take 1 tablet by mouth in the morning. 0 Active Comment on above: Take 1 tablet by [facility] once daily. Take by mouth every 24 hours. fluticasone propionate 0.05 mg/actuat metered dose nasal spray (20 sources) Corticosteroid Start: take 1 spray(s) nasal route once daily fluticasone (FLONASE) 50 mcg/actuation nasal spray Use 1 Freedom in each nostril once daily. 1 g 5 09/01/2020 Active Comment on above: Use 1 Freedom in each nostril once daily. 1 ml [...] 4 MG tablets Indications: MS (multiple sclerosis) ([facility]) Day 1: 6 tablets Day [...] by jose ramon th every 24 hours. Oaujioybtgzw-Wgdx-E olic Acid (1 source) Start: 04-09-2019 take 1 tablet by mouth once daily Multivitamin-Iron- Folic Acid Active 1 TAB Oral Daily April 09, 2019 12:28pm Tkuiblhjvjsd-Tyhz-H olic Acid (Multi-Day With Iron) 18-400 mg-mcg Tablet (5 sources) Start: 04-09-2019 take 1 tablet by mouth once daily Multivitamin-Iron- Folic Acid (Multi-Day With Iron) 18-400 mg-mcg Tablet Active 1 TAB PO Daily April 09, 2019 12:28pm Start: 04-09-2019 take 1 tablet by jose ramon th once daily Aujzvypjphro-Caxx-Xwtvr Acid (Multi-Day With Iron) 18-400 mg-mcg Tablet Active 1 TAB PO Daily April 09, 2019 12:00am Start: 04-09-2019 take 1 tablet by jose ramon th once daily Ygtgzmaqctgx-Djls-Hhxbn Acid (Multi-Day With Iron) 18-400 mg-mcg Tablet [...] 1 Drop (AK-DILATE, SABINA-SYNEPHRINE) polyethylene glycol 3350 56867 mg powder for oral solution (20 sources) Osmotic Laxative Start: 03-30-2024 End: 05-29-2024 polyethylene glycol 3350 (MIRALAX) 17 gram/dose powder Indications: Multiple sclerosis (HCC) , Constipation, unspecified constipation type Take 17 g by mouth once daily. Dissolve dose in 4 - 8 ounces of liquid and take as directed. 510 g 1 03/30/2024 05/29/2024 Active Start: 04-19-2021 End: 08-14-2022 polyethylene glycol 3350 (MT RALAX) 17 gram/dose powder Indications: Chronic idiopathic [...] ounces of liquid and take as directed. Tznbiavi-Bnb-Qg-FA (Jenliva / ) 1 MG capsule (19 sources) Oqlkcsvl-Lsf-Pd-FA (Jenliva /) 1 MG capsule Take by [...] every four to six hours Hydrocodone-Acetami nophen (Braggadocio) 5-325 mg Tablet Discontinued 1 TAB PO [...] Take by mouth once d aily. Mag Ujzzn-Q9-Cywyajed Rt Xt (6 sources) Vitamin D Start: 04-09-2019 End: 04-02-2022 Mag Hsfgp-I8-Qpfcjqgp Rt Xt Discontinued TABLET April 09, 2019 12:28pm April 02, 2022 5:24pm Start: 04-09-2019 Mag Oxide-D3-T urmeric Rt Xt Active April 09, 2019 12:28pm Start: 04-09-2019 End: 04-02-2022 Mag Bjvrp-M1-Mptxrpnh Rt Xt Discontinued TABLET April 09, 2019 12:00am April 02, 2022 5:24pm Start: 04-09-2019 End: 04-02-2022 Mag Jevrn-K9-Hjvpcxbs Rt Xt Discontinued TABLET April 08, 2019 [...] 2019 12:00am April 02, 2022 5:23pm levonorgestrel 0.692277 mg/hr intrauterine system (6 sources) Progestin, Progestin-containing [...] on above: Take 1 capsule by mo [facility] DAILY (6 AM). Magnesium (20 sources) [...] Take 20 mEq by mouth as needed. Ajxjaaes-Cz-Ytg-Fe-FA ( VITAMIN) tab (20 sources) Start: take 1 tablet by mouth once daily Wierfikh-Js-Bfe-Fe- FA ( VITAMIN) tab Indications: Encounter for supervision of normal first in second trimester Take 1 tablet by mouth once daily. 90 tablet 3 2020 Active Comment on above: Take 1 tablet by jose ramon th once daily. 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; Translations: [History of multiple sclerosis] Episodic [...] hip] 07-19-2024 Episodic Other non-traumatic joint disorders (9 sources) Hip pain; Translations: [Pain in right [...] of ; Translations: [36 weeks gestation of ([facility])] Onset: 10-05-2024 Episodic Residual codes; unclassified (2 sources) Other specified postprocedural states; Translations: [Other specified postprocedural states] Onset: 08-17-2024 Episodic Unclassified (20 sources) Sleep Efficiency Onset: 03-30-2024 03-30-2024 Unclassified [...] [Other malaise] Onset: 07-01-2024 06-08-2024 Episodic Other aftercare (20 sources) Patient encounter status; Translations: [Other mcfp (current) drug therapy] Onset: 01-08-2021 Resolved: 01-11-2021 [...] and damage, unspecified, not applicable or unspecified ([facility])] Onset: 06-14-2024 Episodic Other complications of [...] Translations: [Supervision of elderly multigravida, second trimester ([facility])] Onset: 06-14-2024 Episodic Other complications of (2 sources) Diseases of the nervous system complicating , unspecified trimester; Translations: [Diseases of the nervous system complicating , unspecified trimester ([facility])] Onset: 06-14-2024 Episodic Other complications of (2 sources) Cervical shortening, second trimester; Translations: [Cervical shortening, second trimester ([facility])] Onset: 06-14-2024 Episodic Other endocrine disorders [...] BPP and Dopplers. Delivery is recommended at [id number]-47c4j. Please see note from today for details [...] EFW (oz) 13 oz EFW by: Hadlock (FRC-SR-XJ-FL) Extended Fiberglass Ski Maker 5.8 mm Head / Face / Neck [...] Problem with Growth. History ====== General History Ljhwbc602 cm Height (ft)5 ft Height (in)6 in Previous Outcomes Gravida2 Para1 Children born living ?37w1 Pregnancies delivered at term (T)1 Living children (L)1 Other:Vaginal Delivery Maternal Assessment Buhfft692 cm Height (ft)5 ft Height (in)6 in Qdokxy47 kg Weight (lb)131 lb Weight gain0 kg Weight gain (lb)0 lb BMI21.14 kg/m Physical Exam Initial weight (lb)131 lb ========= Tony . Number of fetuses: 1 Dating ====== GA by prior skorivkqfz70 w + 6 d ELLIOTT by prior [...] BPP and Dopplers. Delivery is recommended at 33t0h-97s8e. Please see note from today for details [...] Biometry Standard BPD89.7 mm36w 2d 49% Hadlock XWF605.7 mm 64% INTERGROWTH-21st HC326.4 mm37w 0d 27% Hadlock AC304.3 mm34w 3d 6% Hadlock Femur70.2 mm36w 0d 26% Hadlock HC / AC1.07 EFW2,643 g35w 2d 19% Hadlock EFW (lb)5 lb EFW (oz)13 oz EFW by:Hadlock (HVY-IB-JX-FL) Extended Vp5.8 mm Head / Face / Neck Cephalic index0.78 16% Nicolaides Extremities / Bony Struc FL / BPD0.78 FL / HC0.22 FL / AC0.23 Other Structures FAX803 bpm Anatomy Cranium:Normal Lateral ventricles:Normal Midline falx:Normal [...] Problem with Growth. History ====== General History Rvqtgh590 cm Height (ft)5 ft Height (in)6 in Previous Outcomes Gravida2 Para1 Children born living ?37w1 Pregnancies delivered at term (T)1 Living children (L)1 Other:Vaginal Delivery Maternal Assessment Hfjjnf152 cm Height (ft)5 ft Height (in)6 in Iuofkw01 kg Weight (lb)131 lb Weight gain0 kg Weight gain (lb)0 lb BMI21.14 kg/m Physical Exam Initial weight (lb)131 lb ========= Toyn . Number of fetuses: 1 Dating ====== GA by prior hnwfibdruz60 w + 6 d ELLIOTT by prior assessment:10/27/2024 Ultrasound examination on:10/05/2024 GA by U/S based upon:AC, BPD, Femur, HC GA by U/S36 w + 0 d ELLIOTT by U/S:11/02/2024 Assigned:based on stated ELLIOTT, selected on 06/14/2024 Assigned GA (more content not included)... [facility] Work Phone: [facility] Work Phone: Radiology Study observation (narrative) [facility] Work Phone: US BIOPHYSICAL PROFILE WO [...] BPP and Dopplers. Delivery is recommended at 99c8h-88t6e. Please see note from today for details [...] EFW (oz) 13 oz EFW by: Hadlock (MDH-TS-TT-FL) Extended Fiberglass Ski Maker 5.8 mm Head / Face / Neck [...] prior assessment 36 w + 6 d ELLITOT by prior assessment: 10/27/2024 Ultrasound examination on: 10/05/2024 GA by U/S based upon: AC, BPD, Femur, HC GA by U/S 36 w + 0 d ELLIOTT by U/S: 11/02/2024 Assigned: based on stated ELLIOTT, selected on 06/14/2024 Assigned GA 36 w + (more content not included)... [facility] US OB FOLLOW UP TRANSABDOMIN AL [...] BPP and Dopplers. Delivery is recommended at 46w7u-86o0g. Please see note from today for details [...] EFW (oz) 13 oz EFW by: Hadlock (OFQ-OV-IE-FL) Extended Fiberglass Ski Maker 5.8 mm Head / Face / Neck [...] 36 w + (more content not included)... [facility] US UMBILICAL ARTERY DOPPLERo n 10-05-2024 [...] BPP and Dopplers. Delivery is recommended at 69e6p-05a6v. Please see note from today for details [...] EFW (oz) 13 oz EFW by: Hadlock (KIZ-XM-ND-FL) Extended Fiberglass Ski Maker 5.8 mm Head / Face / Neck [...] w + (more content not included)... Normal [facility] Urinalysis macro (dipstick) panel (U)on 10-04-2024 Bilirubin, UA Negative Negative - 4(70) +++ mg/dL [facility] Blood, UA Positive Negative - 50 Delbert/mcL [facility] Healthcare Comment on above: trace-intact Clarity, UA Clear [facility] Color, UA Yellow [facility] Glucose, UA Negative Negative - 1999(110) ++++ mg/dL [facility] Interpretation and review of laboratory results Abnormal [facility] Ketones, UA Negative Negative - 160(16) ++++ mg/dL [facility] Leukocytes, UA Positive Negative - 500+++ Baltazar/mcL [facility] Comment on above: small Nitrite, UA Negative Negative - Positive [facility] pH, UA 6 5 - 9 [facility] Protein, UA Trace Negative - 1999(20) ++++ mg/dL [facility] Spec Grav, UA 1.03 1 - 1.03 [facility] Urobilinogen, UA 0.2 0.2 - 12 mg/dL [facility] Urinalysis macro (dipstick) panel (U)on 09-27-2024 Bilirubin, UA Negative Negative - 4(70) +++ mg/dL [facility] Blood, UA Negative Negative - 50 Delbert/mcL [facility] Clarity, UA Clear [facility] Color, [...] Medical Center Protein, UA Negative Negative - 1999(20) ++++ mg/dL [facility] Spec Grav, UA 1.02 1 - 1.03 [facility] Urobilinogen, UA 1.0 0.2 - 12 mg/dL [facility] CNTHERAPYon 09-21-2024 CNTHERAPY OT/PT/Speech Visit (LOPTRM) ----- CAROL ANN MARTINEZ ([id number]) 1985 F Date Time Provider Department 09/21/24 9:45 AM ESTRELLA SORTO Date Time Provider Department [place] 09/21/2024 9:45 AM [id number] SORTO Reason for Visit: Physical Therapy [503] [...] (FLONASE) 50 mcg/actuation nasal spray Use 1 Freedom in each nostril once daily. Baker Pie: Therapy (PT/OT/Speech/Resp) ID: [id number] 09/21/2024 10:16 AM Author: ESTRELLA SORTO Signed by ESTRELLA SORTO PT, DPT on 09/21/2024 at 10:16 AM Document text: Program_ID:[id number] Access Code: [email or web address] URL: [email or web address] Date: 09-21-2024 Prepared By: Estrella Sorto Program [...] - 2 sets - 10 reps Normal [facility] THERAPY NTon 09-21-2024 THERAPY NT HNO ID: [id number] Author: ESTRELLA SORTO, PT, DPT Service: ? Author Type: Physical Therapist Type: Therapy (PT/OT/Speech/Resp) Filed: 09/21/2024 10:16 Note Text: Program_ID:[id number] Access Code: [email or web address] URL: [email or web address] Date: 09-21-2024 Prepared By: Estrella Sorto Program [...] - 2 sets - 10 reps Normal [facility] Urinalysis macro (dipstick) panel (U)on 09-21-2024 Bilirubin, UA Negative Negative - 4(70) +++ mg/dL [facility] Blood, UA Negative Negative - 50 Delbert/mcL [facility] Clarity, UA Clear [facility] Color, UA Yellow [facility] Glucose, UA Negative Negative - 1999(110) ++++ mg/dL [facility] Interpretation and review of laboratory results Abnormal [facility] Ketones, UA Negative Negative - 160(16) ++++ mg/dL [facility] Leukocytes, UA Trace Negative - 500+++ Baltazar/mcL [facility] Nitrite, UA Negative Negative - Positive [facility] pH, UA 7 5 - 9 [facility] Protein, UA Negative Negative - 1999(20) ++++ mg/dL [facility] Spec Grav, UA 1.02 1 - 1.03 [facility] Urobilinogen, UA 0.2 0.2 - 12 mg/dL [facility] US OB FOLLOW UP TRANSABDOMIN AL APPROACHon [...] EFW (oz) 0 oz EFW by: Hadlock (OKV-DS-WZ-FL) Extended Fiberglass Ski Maker 1.6 mm Head / Face / Neck [...] view: limited by late gestational age Normal [facility] Urinalysis macro (dipstick) panel (U)on 09-07-2024 Bilirubin, UA Negative Negative - 4(70) +++ mg/dL [facility] Blood, UA Negative Negative - 50 Delbert/mcL [facility] Clarity, UA Clear [facility] Color, UA Yellow [facility] Glucose, UA Negative Negative - 2000(110) ++++ mg/dL [facility] Interpretation and review of laboratory results Abnormal [facility] Ketones, UA Negative Negative - 160(16) ++++ mg/dL [facility] Leukocytes, UA Trace Negative - 500+++ Baltazar/mcL [facility] Nitrite, UA Negative Negative - Positive [facility] pH, UA 7 5 - 9 [facility] Protein, UA Negative Negative - 1999(20) ++++ mg/dL [facility] Spec Grav, UA 1.02 1 - 1.03 [facility] Urobilinogen, UA 0.2 0.2 - 12 mg/dL [facility] [id number] 09-03-2024 [id number] HNO ID: [id number] Author: ESTRELLA SORTO PT, DPT Service: ? Author Type: Physical Therapist Type: [id number] Filed: 09/03/2024 11:25 Note Text: [facility] Rehabilitation and Sports Therapy Physical Therapy Plan of Care Certification Patient Name: Carol Ann Maritnez : 1985 [facility] #: [id number] Date: 09/03/2024 To: Janice Lane MD From [...] Goals for Episode of Care: established 09/03/24 Bells in home exercise program. Patient will decrease [...] Planned: 4 Planned Treatment Interventions: Therapeutic exercise (19758), Neuromuscular re-education (39752), Manual therapy (14731), Therapeutic activities (63350), Self-penitentiary management (01504), Gait Training (60328), Patient/Family/Caregiver Education PLAN FOR NEXT VISIT: Continue [...] the treatment plan for Annettezayda Beto Martinez, [facility]# [id number] for the period of 09/03/24 -- 11/02/24, established on 09/03/2024. Signature certifies the need for therapy services. Normal [facility] CNTHERAPYon 09-03-2024 CNTHERAPY OT/PT/Speech Visit (LOPTRM) ----- MARTINEZCAROL ANN GREWAL ([id number]) 1985 F Date Time Provider Department 09/03/24 8:45 AM ESTRELLA SORTO Date Time Provider Department Center 09/03/2024 8:45 AM [id number] SORTO Reason for Visit: PT Eval [747] [...] (FLONASE) 50 mcg/actuation nasal spray Use 1 Freedom in each nostril once daily. Baker Pie: Therapy (PT/OT/Speech/Resp) ID: [id number] 09/03/2024 9:22 AM Author: ESTRELLA SORTO Signed by ESTRELLA SORTO PT, DPT on 09/03/2024 at 9:22 AM Document text: Program_ID:[id number] Access Code: [email or web address] URL: [email or web address] Date: 09-03-2024 Prepared By: Estrella Sorto Program Notes Exercises - Seated Hip Adduction Isometrics with Ball - 1-3 x daily - 7 x weekly - 2-3 sets - 10 reps - Seated Hip Abduction with Resistance - 1-3 x daily - 7 x weekly - 2-3 sets - 10 reps Normal [facility] THERAPY NTon 09-03-2024 THERAPY NT HNO ID: [id number] Author: ESTRELLA SORTO, PT, DPT Service: ? Author Type: Physical Therapist Type: Therapy (PT/OT/Speech/Resp) Filed: 09/03/2024 09:22 Note Text: Program_ID:[id number] Access Code: [email or web address] URL: [email or web address]/ Date: 09-03-2024 Prepared By: Estrella Sorto Program Notes Exercises - Seated Hip Adduction Isometrics with Ball - 1-3 x daily - 7 x weekly - 2-3 sets - 10 reps - Seated Hip Abduction with Resistance - 1-3 x daily - 7 x weekly - 2-3 sets - 10 reps Normal [facility] Urinalysis macro (dipstick) panel (U)on 08-24-2024 Bilirubin, UA Negative Negative - 4(70) +++ mg/dL [facility] Blood, UA Negative Negative - 50 Delbert/mcL [facility] Clarity, UA Clear [facility] Color, UA Yellow [facility] Glucose, UA Negative Negative - 1999(110) ++++ mg/dL [facility] Interpretation and review of laboratory results Normal [facility] Ketones, UA Negative Negative - 160(16) ++++ mg/dL [facility] Leukocytes, UA Negative Negative - 500+++ Baltazar/mcL [facility] Nitrite, UA Negative Negative - Positive [facility] pH, UA 6.5 5 - 9 [facility] Protein, UA Negative Negative - 1999(20) ++++ mg/dL [facility] Spec Grav, UA 1.025 1 - 1.03 [facility] Urobilinogen, UA 0.2 0.2 - 12 mg/dL [facility] No Panel Informationon 08-17 Interpreted [...] care of your patient Follow-up ======== Per [facility] visit to follow, plan for serial [...] EFW (oz) 4 oz EFW by: Hadlock (TOY-XR-PB-FL) Extended Fiberglass Ski Maker 3.4 mm Head / Face / Neck [...] Disorder, Cervical Shortening. History ====== General History Yetjti176 cm Height (ft)5 ft Height (in)6 in Previous Outcomes Gravida2 Para1 Children born living ?37w1 Pregnancies delivered at term (T)1 Living children (L)1 Other:Vaginal Delivery Maternal Assessment Sjrajc961 cm Height (ft)5 ft Height (in)6 in Kvvfgc09 kg Weight (lb)131 lb Weight gain0 kg Weight gain (lb)0 lb BMI21.14 kg/m Physical Exam Initial weight (lb)131 lb ========= Tony . Number of fetuses: 1 Dating ====== GA by prior udvhtdcdoc23 w + 6 d ELLIOTT by prior [...] (lb)3 lb EFW (oz)4 oz EFW by:Hadlock (IKG-EP-HL-FL) Extended Vp3.4 mm Head / Face / Neck Cephalic index0.77 24% Nicolaides Extremities / Bony Struc FL / BPD0.75 FL / HC0.20 FL / AC0.22 Other Structures QWS604 bpm Anatomy Cranium:Normal Lateral ventricles:Normal Midline falx:Normal [...] Disorder, Cervical Shortening. History ====== General History Fbccrp035 cm Height (ft)5 ft Height (in)6 in Previous Outcomes Gravida2 Para1 Children born living ?37w1 Pregnancies delivered at term (T)1 Living children (L)1 Other:Vaginal Delivery Maternal Assessment Nzmjhb276 cm Height (ft)5 ft Height (in)6 in Ubmvqi26 kg Weight (lb)131 lb Weight gain0 kg Weight gain (lb)0 lb BMI21.14 kg/m Physical Exam Initial weight (lb)131 lb ========= Tony . Number of fetuses: 1 Dating ====== GA by prior nnewpgfuvt67 w + 6 d ELLIOTT by prior [...] participate in the (more content not included)... [facility] Work Phone: Radiology Study observation (narrative) [facility] Work Phone: No Panel InformationOrdered By: Marina Ordoñez on 08-17-2024 [facility] Work Phone: POCT UA Automated manually r esultedon 08-17-2024 Appearance (U) Clear Clear [facility] Work Phone: Glucose Test strip (U) [Mass/Vol] Negative NEGATIVE mg/dl [facility] Work Phone: Hemoglobin Ql (U) Negative NEGATIVE [facility] Work Phone: Interpretation and review of laboratory results Normal [facility] Work Phone: Leukocyte esterase Test strip Ql (U) Negative NEGATIVE [facility] Work Phone: Nitrite Ql (U) Negative NEGATIVE [facility] Work Phone: [phone] pH (U) 7.0 [pH] No Reference Range Established [facility] Work Phone: POC Bilirubin, Urine Negative [facility]IVE [facility]: POC Color, Urine Yellow Straw, Yellow, Light-Yellow [facility] Work Phone: POC Ketones, Urine Negative NEGATIVE mg/dl [facility] Work Phone: [phone] POC Protein, Urine Negative NEGATIVE, 30 (1+) mg/dl [facility] Work Phone: POC Specific Caldwell, Urine 1.025 1.005 - 1.035 [facility] Work Phone: POC Urobilinogen, Urine 0.2 0.2, 1.0 EU/DL [facility] Work Phone: [facility] Work Phone: US BIOPHYSICAL PROFILE WO [...] care of your patient Follow-up ======== Per [facility] visit to follow, plan for serial [...] EFW (oz) 4 oz EFW by: Hadlock (TQN-QJ-UP-FL) Extended Fiberglass Ski Maker 3.4 mm Head / Face / Neck [...] care of yo (more content not included)... [facility] US OB FOLLOW UP TRANSABDOMIN AL [...] care of your patient Follow-up ======== Per [facility] visit to follow, plan for serial [...] EFW (oz) 4 oz EFW by: Hadlock (VOJ-TT-QT-FL) Extended Fiberglass Ski Maker 3.4 mm Head / Face / Neck [...] of yo (more content not included)... Normal [facility] Urinalysis macro (dipstick) panel (U)on 08-10-2024 Bilirubin, UA Negative Negative - 4(70) +++ mg/dL [facility] Blood, UA Negative Negative - 50 Delbert/mcL [facility] Clarity, UA Clear [facility] Color, UA Yellow [facility] Glucose, UA Negative Negative - 1999(110) ++++ mg/dL [facility] Interpretation and review of laboratory results Normal [facility] Ketones, UA Negative Negative - 160(16) ++++ mg/dL [facility] Leukocytes, UA Negative Negative - 500+++ Baltazar/mcL [facility] Nitrite, UA Negative Negative - Positive [facility] pH, UA 5.5 5 - 9 [facility] Protein, UA Negative Negative - 1999(20) ++++ mg/dL [facility] Spec Grav, UA 1.015 1 - 1.03 [facility] Urobilinogen, UA 1.0 0.2 - 12 mg/dL [facility] CBC W Auto Differential pane l (Bld)on 07-19-2024 Basophils (Bld) [#/Vol] 0.05 10*3/uL Normal <0.11 [facility] Comment on above: Order Comment: Speci men Type: BLOOD SPECIMENOrdering Facility: [facility] Address: [address] [place] [address] Performed By: #### 5 7021-8 ####[facility] LABCLIA [id number] [place] [address] [place] Basophils/100 WBC (Bld) 0.6 % Normal [facility] Comment on above: Order Comment: Speci men Type: BLOOD SPECIMENOrdering Facility: [facility] Address: [address] [place] [address] Performed By: #### 5 7021-8 ####[facility] LABCLIA [id number] [place] [address] [place] Differential cell count method Nom (Bld) Auto Normal [facility] Comment on above: Order Comment: Speci men Type: BLOOD SPECIMENOrdering Facility: [facility] Address: [address] [place] [address] Performed By: #### 5 7021-8 ####[facility]CLIA [id number] [place] [address] [place] Eosinophils (Bld) [#/Vol] 0.10 10*3/uL Normal <0.46 [facility] Comment on above: Order Comment: Speci men Type: BLOOD SPECIMENOrdering Facility: [facility] Address: [address] [place] [address] Performed By: #### 5 7021-8 ####[facility]CLIA [id number] [place] [address] [place] Eosinophils/100 WBC (Bld) 1.2 % Normal [facility] Comment on above: Order Comment: Speci men Type: BLOOD SPECIMENOrdering Facility: [facility] Address: [address] [place] [address] Performed By: #### 5 7021-8 ####[facility]CL[facility] [id number] [place] [address] [place] Erythrocyte distribution width (RBC) [Ratio] 14.7 % Normal 11.5-15.0 [facility] Comment on above: Order Comment: Speci men Type: BLOOD SPECIMENOrdering Facility: [facility] Address: [address] [place] [address] Performed By: #### 5 7021-8 ####[facility]CLIA [id number] [place] [address] [place] Hematocrit (Bld) [Volume fraction] 39.3 % Normal 36.0-46.0 [facility] Comment on above: Order Comment: Speci men Type: BLOOD SPECIMENOrdering Facility: [facility] Address: [address] [place] [address] Performed By: #### 5 7021-8 ####[facility]CL[facility] [id number] [place] [address] [place] Hemoglobin (Bld) [Mass/Vol] 12.4 g/dL Normal 11.5-15.5 [facility] Comment on above: Order Comment: Speci men Type: BLOOD SPECIMENOrdering Facility: [facility] Address: [address] [place] [address] Performed By: #### 5 7021-8 ####[facility] LABIA [id number] [place] [address] [place] Immature granulocytes (Bld) [#/Vol] 0.04 10*3/uL Normal <0.10 [facility] Comment on above: Order Comment: Speci men Type: BLOOD SPECIMENOrdering Facility: [facility] Address: [address] [place] [address] Performed By: #### 5 7021-8 ####[facility]CLIA [id number] [place] [address] [place] Immature granulocytes/100 WBC (Bld) 0.5 % Normal [facility] Comment on above: Order Comment: Speci men Type: BLOOD SPECIMENOrdering Facility: [facility] Address: [address] [place] [address] Performed By: #### 5 7021-8 ####[facility]CLIA [id number] [place] [address] [place] Lymphocytes (Bld) [#/Vol] 1.58 10*3/uL Normal 1.00-4.00 [facility] Comment on above: Order Comment: Speci men Type: BLOOD SPECIMENOrdering Facility: [facility] Address: [address] [place] [address] Performed By: #### 5 7021-8 ####[facility]CLIA [id number] [place] [address] [place] Lymphocytes/100 WBC (Bld) 19.1 % Normal [facility] Comment on above: Order Comment: Speci men Type: BLOOD SPECIMENOrdering Facility: [facility] Address: [address] [place] [address] Performed By: #### 5 7021-8 ####[facility]CL[facility] [id number] [place] [address] [place] MCH (RBC) [Entitic mass] 27.1 pg Normal 26.0-34.0 [facility] Comment on above: Order Comment: Speci men Type: BLOOD SPECIMENOrdering Facility: [facility] Address: [address] [place] [address] Performed By: #### 5 7021-8 ####[facility]CL[facility] [id number] [place] [address] [place] MCHC (RBC) [Mass/Vol] 31.6 g/dL Normal 30.5-36.0 [facility] Comment on above: Order Comment: Speci men Type: BLOOD SPECIMENOrdering Facility: [facility] Address: [address] [place] [address] Performed By: #### 5 7021-8 ####[facility]CL[facility] [id number] [place] [address] [place] MCV (RBC) [Entitic vol] 86.0 fL Normal 80.0-100.0 [facility] Comment on above: Order Comment: Speci men Type: BLOOD SPECIMENOrdering Facility: [facility] Address: [address] [place] [address] Performed By: #### 5 7021-8 ####[facility]CL[facility] [id number] [place] [address] [place] Monocytes (Bld) [#/Vol] 0.58 10*3/uL Normal <0.87 [facility] Comment on above: Order Comment: Speci men Type: BLOOD SPECIMENOrdering Facility: [facility] Address: [address] [place] [address] Performed By: #### 5 7021-8 ####[facility]CL[facility] [id number] [place] [address] [place] Monocytes/100 WBC (Bld) 7.0 % Normal [facility] Comment on above: Order Comment: Speci men Type: BLOOD SPECIMENOrdering Facility: [facility] Address: [address] [place] [address] Performed By: #### 5 7021-8 ####[facility]CL[facility] [id number] [place] [address] [place] Neutrophils (Bld) [#/Vol] 5.91 10*3/uL Normal 1.45-7.50 [facility] Comment on above: Order Comment: Speci men Type: BLOOD SPECIMENOrdering Facility: [facility] Address: [address] [place] [address] Performed By: #### 5 7021-8 ####[facility]CLIA [id number] [place] [address] [place] Neutrophils/100 WBC (Bld) 71.6 % Normal [facility] Comment on above: Order Comment: Speci men Type: BLOOD SPECIMENOrdering Facility: [facility] Address: [address] [place] [address] Performed By: #### 5 7021-8 ####[facility] LABIA [id number] [place] [address] [place] Nucleated RBC (Bld) [#/Vol] 10*3/uL Normal <0.01 [facility] Comment on above: Order Comment: Speci men Type: BLOOD SPECIMENOrdering Facility: [facility] Address: [address] [place] [address] Performed By: #### 5 7021-8 ####[facility] LABIA [id number] [place] [address] [place] Nucleated RBC/100 WBC (Bld) [Ratio] 0.0 /100 WBC Normal [facility] Comment on above: Order Comment: Speci men Type: BLOOD SPECIMENOrdering Facility: [facility] Address: [address] [place] [address] Performed By: #### 5 7021-8 ####[facility] LABIA [id number] [place] [address] [place] Platelet mean volume (Bld) [Entitic vol] 13.2 fL High 9.0-12.7 [facility] Comment on above: Order Comment: Speci men Type: BLOOD SPECIMENOrdering Facility: [facility] Address: [address] [place] [address] Performed By: #### 5 7021-8 ####[facility] LABIA [id number] [place] [address] [place] Platelets (Bld) [#/Vol] 187 10*3/uL Normal 150-400 [facility] Comment on above: Order Comment: Speci men Type: BLOOD SPECIMENOrdering Facility: [facility] Address: [address] [place] [address] Performed By: #### 5 7021-8 ####[facility]CLIA [id number] [place] [address] [place] RBC (Bld) [#/Vol] 4.57 10*6/uL Normal 3.90-5.[address] [facility] Comment on above: Order Comment: Speci men Type: BLOOD SPECIMENOrdering Facility: [facility] Address: [address] [place] [address] Performed By: #### 5 7021-8 ####[facility]CLIA [id number] [place] [address] [place] WBC (Bld) [#/Vol] 8.26 10*3/uL Normal 3.70-11.[address] [facility] Comment on above: Order Comment: Speci men Type: BLOOD SPECIMENOrdering Facility: [facility] Address: [address] [place] [address] Performed By: #### 5 7021-8 ####[facility] LABCLIA [id number] [address] [facility] CNOVon 07-19-2024 CNOV Office Visit ([facility] ) ----- CAROL ANN MARTINEZ ([id number]) 1985 F Date Time Provider Department 07/19/24 12:[address] [facility] During your visit today, we recorded [...] the hip. She is not taken anything nkja-lht-wzqtriz for it. Patient has multiple sclerosis. Her [...] few seconds when she was on a rgarb-oi-olpcv with her daughter. She told her MASS SPECTROMETRY MANAGER about the symptoms she has started to [...] GENERAL APPEAR (more content not included)... Normal [facility] metabolic 2000 panelon 07-19-2024 Albumin [Mass/Vol] 3.7 g/dL Low 3.9-4.9 [facility] Comment on above: Order Comment: Speci men Type: BLOOD SPECIMENOrdering Facility: [facility] Address: [address] [place] [address] Performed By: #### 2 276-4, 74944-2 ####[facility]CLIA [id number] [place] [address] [place] ALP [Catalytic activity/Vol] 62 U/L Normal 34-123 [facility] Comment on above: Order Comment: Speci men Type: BLOOD SPECIMENOrdering Facility: [facility] Address: [address] [place] [address] Performed By: #### 2 276-4, 92961-0 ####[facility] LABCLIA [id number] [place] [address] [place] ALT [Catalytic activity/Vol] 15 U/L Normal 7-38 [facility] Comment on above: Order Comment: Speci men Type: BLOOD SPECIMENOrdering Facility: [facility] Address: [address] [place] [address] Performed By: #### 2 276-4, 94594-6 ####[facility]CLIA [id number] [place] [address] [place] Anion gap [Moles/Vol] 10 mmol/L Normal 8-15 [facility] Comment on above: Order Comment: Speci men Type: BLOOD SPECIMENOrdering Facility: [facility] Address: [address] [place] [address] Performed By: #### 2 276-4, 42052-4 ####[facility]CLIA [id number] [place] [address] [place] AST [Catalytic activity/Vol] 18 U/L Normal 13-35 [facility] Comment on above: Order Comment: Speci men Type: BLOOD SPECIMENOrdering Facility: [facility] Address: [address] [place], [place] [address] Performed By: #### 2 276-4, 18917-2 ####[facility]CLIA [id number] [place] [address] [place] Bilirubin [Mass/Vol] 0.4 mg/dL Normal 0.2-1.3 [facility] Comment on above: Order Comment: Speci men Type: BLOOD SPECIMENOrdering Facility: [facility] Address: [address] [place] [address] Performed By: #### 2 276-4, 12914-3 ####[facility]CLIA [id number] [place] [address] [place] Calcium [Mass/Vol] 9.4 mg/dL Normal 8.5-10.2 [facility] Comment on above: Order Comment: Speci men Type: BLOOD SPECIMENOrdering Facility: [facility] Address: [address] [place] [address] Performed By: #### 2 276-4, 84374-5 ####[facility]CLIA [id number] [place] [address] [place] Chloride [Moles/Vol] 104 mmol/L Normal 98-107 [facility] Comment on above: Order Comment: Speci men Type: BLOOD SPECIMENOrdering Facility: [facility] Address: [address] [place], [place] [address] Performed By: #### 2 276-4, 57804-7 ####[facility] LABCLIA [id number] [place] [id number] [place] CO2 [Moles/Vol] 22 mmol/L Normal 22-30 [facility] Comment on above: Order Comment: Speci men Type: BLOOD SPECIMENOrdering Facility: [facility] Address: [address] [place], [place] [address] Performed By: #### 2 276-4, 54273-2 ####[facility] LABIA [id number] [address] [address] [place] Creatinine [Mass/Vol] 0.62 mg/dL Normal 0.58-0.96 [facility] Comment on above: Order Comment: Specjoshua chauhan Type: BLOOD SPECIMENOrdering Facility: [facility] Address: [address] [place] [address] Performed By: #### 2 276-4, 50389-8 ####[facility] LABIA [id number] [place] [address] [place] Creatinine and Glomerular filtration rate.predicted panel (S/P/Bld) 117 mL/min/1.73m??? Normal >=60 [facility] Comment on above: Order Comment: [facility] Type: BLOOD SPECIMENOrdering Facility: [facility] Address: [address] [place] [address] Result Comment: Priscila mated Glomerular Filtration Rate [...] actual GFR. Performed By: #### 2 276-4, 26053-1 ####[facility] LABIA [id number] [place] [id number] [place] Glucose [Mass/Vol] 58 mg/dL Low 74-99 [facility] Comment on above: Order Comment: Speci gissel Type: BLOOD SPECIMENOrdering Facility: [facility] Address: [address] [place] [address] Result Comment: The [place] [employer] Association (ADA) provides guidance for cutoff [...] Standards of Medical Care in Diabetes 2016, [place] [employer]. Diabetes Care. 2016.39(Suppl 1). Performed By: #### 2 276-4, 42954-9 ####[facility] LABCLIA [id number] [place] [address] [place] Potassium [Moles/Vol] 3.9 mmol/L Normal 3.7-5.1 [facility] Comment on above: Order Comment: Rylee chauhan Type: BLOOD SPECIMENOrdering Facility: [facility] Address: [address] [place] [address] Performed By: #### 2 276-4, 48570-8 ####[facility] LABCLIA [id number] [place] [address] [place] Protein [Mass/Vol] 7.1 g/dL Normal 6.3-8.0 [facility] Comment on above: Order Comment: Rylee chauhan Type: BLOOD SPECIMENOrdering Facility: [facility] Address: [address] [place] [address] Performed By: #### 2 276-4, 99856-1 ####[facility] LABCLIA [id number] [place] [address] [place] Sodium [Moles/Vol] 136 mmol/L Normal 136-144 [facility] Comment on above: Order Comment: Evai men Type: BLOOD SPECIMENOrdering Facility: [facility] Address: [address] [place] [address] Performed By: #### 2 276-4, 86011-4 ####[facility] LABCLIA [id number] [place] [address] [place] Urea nitrogen [Mass/Vol] 8 mg/dL Normal 7-21 [facility] Comment on above: Order Comment: Speci men Type: BLOOD SPECIMENOrdering Facility: [facility] Address: [address] [place], [place] [address] Performed By: #### 2 276-4, 69425-9 ####[facility] LABCLIA [id number] [place] [address] [place] Ferritin SerPl-mCncon 2023 Ferritin [Mass/Vol] 36.5 ng/mL Normal 14.7-205.[address] [facility] Comment on above: Order Comment: Speci men Type: BLOOD SPECIMENOrdering Facility: [facility] Address: [address] [place] [address] Performed By: #### 2 276-4, 02047-9 ####[facility] LABIA [id number] [place] [address] [place] POLYSOMNOGRAM (PSG)/HOME SLE EP APNEA TEST (HSAT)on 07-03-2024 POLYSOMNOGRAM (PSG)/HOME SLEEP APNEA TEST (HSAT) [facility] at [address], [address] [address] ; Home Sleep Apnea Test (HSAT) Study Report Name: CAROL ANN MARTINEZ Date of Study: 07/03/2024 [facility]#: [id number] Age: 38 (: 1985) ESS: 0 Neck [...] unattended Type III, minimum of 4 parameters (94647) Procedure: This study was performed using a Type III ambulatory PSG device and was unattended. The patient was instructed on proper use of the device by a registered imaging technologist. The monitored parameters included heart rate, [...] By: Sam Damon (07/08/2024 4:02:15 PM) Normal [facility] OB LIMITED 1+ FETUSESon 0 07-02-2024 [...] Uterus: Visualiz (more content not included)... Normal [facility] OB TRANSVAGINALon 024 OB TRANSVAGINAL Interpreted by: [...] Uterus: Visualiz (more content not included)... Normal [facility] CNCOon 06-21-2024 CNCO Letter Text Normal [facility] US OB DETAIL ANATOMYon 06-14-2024 OB [...] EFW (oz) 14 oz EFW by: Hadlock ([id number]-WT-TM-FL) Extended Fiberglass Ski Maker 5.9 mm CM 3.2 mm 4% Nicolaides [...] Normal LVOT view: Normal 3-vessel view: Normal 5-imoekg-imncdcc view: Normal Heart / Thorax Situs: situs [...] Lt neha (more content not included)... Normal [facility] OB TRANSVAGINALon 024 OB TRANSVAGINAL Interpreted by: [...] EFW (oz) 14 oz EFW by: Hadlock ([id number]-ZQ-DP-FL) Extended Fiberglass Ski Maker 5.9 mm CM 3.2 mm 4% Nicolaides [...] Normal LVOT view: Normal 3-vessel view: Normal 5-vrzvlf-plcipgd view: Normal Heart / Thorax Situs: situs [...] Normal Lt neha (more content not included)... [facility] Christiano 06-11-2024 [facility] CAROL ANN MARTINEZ ([id number]) 1985 F Date Time Provider Department 06/11/24 CHAMP BAXTER During your visit today, we recorded the following information about you: Champ Baxter LSW 06/11/2024 9:25 AM Signed This DEZ put in a referral to the [facility] for pt to get connected to additional resources. 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 Problem List [...] Encounter Status:Closed by CHAMP BAXTER on 06/11/24 [facility] 03-24-2024 [facility] Telephone ([facility]) ----- CAROL ANN MARTINEZ ([id number]) 1985 F Date Time Provider Department 03/24/24 [...] Date Reviewed: 01/19/2024 Reviewed by: Kaitlyn Forbes, checker loader - Fully Assessed Reason for Visit: Appointment [...] (FLONASE) 50 mcg/actuation nasal spray Use 1 Freedom in each nostril once daily. Problem List [...] Status:Closed by VIVIANA SANDS on 03/24/24 Normal [facility] HCG,Quantitativeon HCG,Quantitative 830522.00 m[iU]/mL Normal [facility] Comment on above: Result Comment: Appr oximate Approximate hCG Gestational Age Range (mIU/ml) (weeks) 0.2-1 5-50 1-2 50-500 2-3 100-5,000 3-4 500-10,000 4-5 1,000-50,000 5-6 10,000-100,000 6-8 15,000-200,000 8-12 10,000-100,000 PERFORMED BY: [place] [address] PATHOLOGIST LIME SPREADER ALEN PRICE M.D. Performed By: #### H CGQNT #### [place] [id number] [facility] US breast BI limitedon 03-17 US breast BI limited [facility] [address] [place] [address] Mammography Report Signed Patient: Carol Ann Martinez MR#: [id number] : 1985 Acct:[id number] Age/Sex: 38 / F ADM Date: 03/17/24 Loc: [place] Room: [facility] Attending Dr: Clarke Hu Copies to: Clarke Lane MD Ordering Provider: Clarke Hu Date of Service: 03/17/24 MM/MM diagnostic mammo BI w/CAD: RT BREAST LUMP ([id number]) US/US breast BI limited: BILATERAL BREAST LUMPS [...] Renetta Chin M.D.03/17/2024 9:57 AM Dictation Location: [facility] Transcribed By: MEGHANN 03/17/24956 Dictated By: Renetta Chin II, MD 03/17/24922 Signed By: 03/17/24956 Normal [facility] XR Cervical spine AP and Lat eral and obliqueon 03-08-2024 IMPRESSION: No acute osseous abnormality. Preserved cervical disc spaces and neural foramina. 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 Date/Time: Mar 08 2024 4:48P Dictated by : VIKTORIYA WALTER MD This examination was interpreted and the report reviewed and electronically signed by: VIKTORIYA WALTER MD on Mar 08 2024 4:50PM [facility] DIVISION OF RADIOLOGY * * *Final [...] to the patient. DIVISION OF RADIOLOGY Provider, [facility] Pastora [facility] - 03/08/2024 * * *Final Report* [...] Preserved cervical disc spaces and neural foramina. 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 Date/Time: Mar 08 2024 4:48P Dictated by : VIKTORIYA WALTER MD This examination was interpreted and the report reviewed and electronically signed by: VIKTORIYA WALTER MD on Mar 08 2024 4:50PM EST [facility] XR Lumbar spine 3 Viewson IMPRESSION: Unremarkable radiographic appearance of the lumbar spine. 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 Date/Time: Mar 08 2024 4:47P [...] Preserved disc spaces. DIVISION OF RADIOLOGY Provider, [facility] - 03/08/2024 * * *Final [...] Unremarkable radiographic appearance of the lumbar spine. 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 Date/Time: Mar 08 2024 4:47P Dictated by : VIKTORIYA WALTER MD This examination was interpreted and the report reviewed and electronically signed by: VIKTORIYA WALTER MD on Mar 08 2024 4:48PM EST [facility] XR Lumbar spine 3 ViewsOrder ed By: Ccf Provider on 03-08-2024 [facility] ESR Westergren method (Bld) [Velocity]on 03-05-2024 ESR (Bld) [Velocity] 5 mm/h [facility] Interpretation and review of laboratory results Normal [facility] JOSSELIN BY IFA WITH REFLEXon Nuclear Ab Ql (S) Negative Normal Negative [facility] Comment on above: Order Comment: Speci men Type: BLOOD SPECIMENOrdering Facility: [facility] Address: [address] [place] [address] Result Comment: Anti -nuclear antibody test is used as an aid in diagnosis of systemic autoimmune diseases. Where positive and clinically warranted, follow-up using disease-specific testing is recommended. Low positive titers are not uncommon with advanced age, certain chronic infections, and malignancies among others. Test methodology: Indirect fluorescence immunoassay (IFA) using HEp-2 cells. Performed By: #### A NAIFR ####[facility] [id number] [place] [address] [place] CBC W Auto Differential pane l (Bld)on 03-04-2024 Basophils (Bld) [#/Vol] 0.04 10*3/uL [facility] Basophils/100 WBC (Bld) 0.5 % [facility] Differential cell count method Nom (Bld) Auto [facility] Eosinophils (Bld) [#/Vol] [facility] Eosinophils/100 WBC (Bld) 0.3 % [facility] Erythrocyte distribution width (RBC) [Ratio] 15.2 % High 11.5 - 15.0 % [facility] Hematocrit (Bld) [Volume fraction] 40.1 % 36.0 - 46.0 % [facility] Hemoglobin (Bld) [Mass/Vol] 12.4 g/dL 11.5 - 15.5 g/dL [facility] Immature granulocytes (Bld) [#/Vol] NINF [facility] Immature granulocytes/100 WBC (Bld) 0.3 % [facility] Interpretation and review of laboratory results Abnormal [facility] Lymphocytes (Bld) [#/Vol] 1.62 10*3/uL [facility] Lymphocytes/100 WBC (Bld) 21.7 % [facility] MCH (RBC) [Entitic mass] 24.1 pg Low 26.0 - 34.0 pg [facility] MCHC (RBC) [Mass/Vol] 30.9 g/dL 30.5 - 36.0 g/dL [facility] MCV (RBC) [Entitic vol] 77.9 fL Low 80.0 - 100.0 fL [facility] Monocytes (Bld) [#/Vol] 0.69 10*3/uL [facility] Monocytes/100 WBC (Bld) 9.2 % [facility] Neutrophils (Bld) [#/Vol] 5.08 10*3/uL [facility] Neutrophils/100 WBC (Bld) 68.0 % [facility] Nucleated RBC (Bld) [#/Vol] [facility] Nucleated RBC/100 WBC (Bld) [Ratio] 0.0 % /100 WBC [facility] Platelet mean volume (Bld) [Entitic vol] [facility] Comment on above: Unable to Report. Platelets (Bld) [#/Vol] 185 10*3/uL [facility] Comment on above: Results checked and verified.No clot detected. RBC (Bld) [#/Vol] 5.15 10*6/uL 3.90 - 5.2 0 m/uL [facility] WBC (Bld) [#/Vol] 7.47 10*3/uL [facility] This is an appended report. These results have been appended to a previously verified report. [facility] Basophils (Bld) [#/Vol] 0.04 10*3/uL Normal <0.11 [facility] Comment on above: Order Comment: Speci men Type: BLOOD SPECIMENOrdering Facility: [facility] Address: [address] [place] [address] Performed By: #### 4 537-7, 01063-0 ####[facility] [id number] [place] [address] [place] Basophils/100 WBC (Bld) 0.5 % Normal [facility] Comment on above: Order Comment: Speci men Type: BLOOD SPECIMENOrdering Facility: [facility] Address: [address] [place] [address] Performed By: #### 4 537-7, 98205-7 ####[facility] [id number] [place] [address] [place] Differential cell count method Nom (Bld) Auto Normal [facility] Comment on above: Order Comment: Speci men Type: BLOOD SPECIMENOrdering Facility: [facility] Address: [address] [place] [address] Performed By: #### 4 537-7, 79426-4 ####[facility] [id number] [place] [address] [place] Eosinophils (Bld) [#/Vol] 10*3/uL Normal <0.46 [facility] Comment on above: Order Comment: Speci men Type: BLOOD SPECIMENOrdering Facility: [facility] Address: [address] [place] [address] Performed By: #### 4 537-7, 18780-1 ####[facility] [id number] [place] [address] [place] Eosinophils/100 WBC (Bld) 0.3 % Normal [facility] Comment on above: Order Comment: Speci men Type: BLOOD SPECIMENOrdering Facility: [facility] Address: [address] [place] [address] Performed By: #### 4 537-7, 45912-3 ####[facility] [id number] [place] [address] [place] Erythrocyte distribution width (RBC) [Ratio] 15.2 % High 11.5-15.0 [facility] Comment on above: Order Comment: Speci men Type: BLOOD SPECIMENOrdering Facility: [facility] Address: [address] [place] [address] Performed By: #### 4 537-7, 39112-1 ####[facility] [id number] [place] [address] [place] Hematocrit (Bld) [Volume fraction] 40.1 % Normal 36.0-46.0 [facility] Comment on above: Order Comment: Speci men Type: BLOOD SPECIMENOrdering Facility: [facility] Address: [address] [place] [address] Performed By: #### 4 537-7, 90263-6 ####[facility] [id number] [place] [address] [place] Hemoglobin (Bld) [Mass/Vol] 12.4 g/dL Normal 11.5-15.5 [facility] Comment on above: Order Comment: Speci men Type: BLOOD SPECIMENOrdering Facility: [facility] Address: [address] [place] [address] Performed By: #### 4 537-7, 13650-2 ####[facility] [id number] [place] [address] [place] Immature granulocytes (Bld) [#/Vol] 10*3/uL Normal <0.10 [facility] Comment on above: Order Comment: Speci men Type: BLOOD SPECIMENOrdering Facility: [facility] Address: [address] [place] [address] Performed By: #### 4 537-7, 99321-3 ####[facility] [id number] [place] [address] [place] Immature granulocytes/100 WBC (Bld) 0.3 % Normal [facility] Comment on above: Order Comment: Speci men Type: BLOOD SPECIMENOrdering Facility: [facility] Address: [address] [place] [address] Performed By: #### 4 537-7, 48547-2 ####[facility] [id number] [place] [address] [place] Lymphocytes (Bld) [#/Vol] 1.62 10*3/uL Normal 1.00-4.00 [facility] Comment on above: Order Comment: Speci men Type: BLOOD SPECIMENOrdering Facility: [facility] Address: [address] [place] [address] Performed By: #### 4 537-7, 25071-8 ####[facility]IA [id number] [place] [address] [place] Lymphocytes/100 WBC (Bld) 21.7 % Normal [facility] Comment on above: Order Comment: Speci men Type: BLOOD SPECIMENOrdering Facility: [facility] Address: [address] [place] [address] Performed By: #### 4 537-7, 62829-8 ####[facility] [id number] [place] [address] [place] MCH (RBC) [Entitic mass] 24.1 pg Low 26.0-34.0 [facility] Comment on above: Order Comment: Speci men Type: BLOOD SPECIMENOrdering Facility: [facility] Address: [address] [place] [address] Performed By: #### 4 537-7, 08059-0 ####[facility] [id number] [place] [address] [place] MCHC (RBC) [Mass/Vol] 30.9 g/dL Normal 30.5-36.0 [facility] Comment on above: Order Comment: Speci men Type: BLOOD SPECIMENOrdering Facility: [facility] Address: [address] [place] [address] Performed By: #### 4 537-7, 32316-3 ####[facility] [id number] [place] [address] [place] MCV (RBC) [Entitic vol] 77.9 fL Low 80.0-100.0 [facility] Comment on above: Order Comment: Speci men Type: BLOOD SPECIMENOrdering Facility: [facility] Address: [address] [place] [address] Performed By: #### 4 537-7, 57621-5 ####[facility] [id number] [place] [address] [place] Monocytes (Bld) [#/Vol] 0.69 10*3/uL Normal <0.87 [facility] Comment on above: Order Comment: Speci men Type: BLOOD SPECIMENOrdering Facility: [facility] Address: [address] [place] [address] Performed By: #### 4 537-7, 56099-5 ####[facility] [id number] [place] [address] [place] Monocytes/100 WBC (Bld) 9.2 % Normal [facility] Comment on above: Order Comment: Speci men Type: BLOOD SPECIMENOrdering Facility: [facility] Address: [address] [place] [address] Performed By: #### 4 537-7, 06035-2 ####[facility] [id number] [place] [id number] [place] Neutrophils (Bld) [#/Vol] 5.08 10*3/uL Normal 1.45-7.50 [facility] Comment on above: Order Comment: Speci men Type: BLOOD SPECIMENOrdering Facility: [facility] Address: [address] [place] [address] Performed By: #### 4 537-7, 99880-4 ####[facility] [id number] [place] [address] [place] Neutrophils/100 WBC (Bld) 68.0 % Normal [facility] Comment on above: Order Comment: Speci men Type: BLOOD SPECIMENOrdering Facility: [facility] Address: [address] [place] [address] Performed By: #### 4 537-7, 98241-1 ####[facility]IA [id number] [place] [address] [place] Nucleated RBC (Bld) [#/Vol] 10*3/uL Normal <0.01 [facility] Comment on above: Order Comment: Speci men Type: BLOOD SPECIMENOrdering Facility: [facility] Address: [address] [place] [address] Performed By: #### 4 537-7, 04690-2 ####[facility]IA [id number] [place] [address] [place] Nucleated RBC/100 WBC (Bld) [Ratio] 0.0 /100 WBC Normal [facility] Comment on above: Order Comment: Speci men Type: BLOOD SPECIMENOrdering Facility: [facility] Address: [address] [place] [address] Performed By: #### 4 537-7, 00561-4 ####[facility]IA [id number] [place] [address] [place] Platelet mean volume (Bld) [Entitic vol] Normal [facility] Comment on above: Order Comment: Speci men Type: BLOOD SPECIMENOrdering Facility: [facility] Address: [address] [place] [address] Result Comment: Unab le to Report. Performed By: #### 4 537-7, 54593-9 ####[facility] [id number] [place] [address] [place] Platelets (Bld) [#/Vol] 185 10*3/uL Normal 150-400 [facility] Comment on above: Order Comment: Speci men Type: BLOOD SPECIMENOrdering Facility: [facility] Address: [address] [place] [address] Result Comment: Resu lts checked and verified.No clot detected. Performed By: #### 4 537-7, 20322-1 ####[facility] [id number] [place] [address] [place] RBC (Bld) [#/Vol] 5.15 10*6/uL Normal 3.90-5.[address] [facility] Comment on above: Order Comment: Speci men Type: BLOOD SPECIMENOrdering Facility: [facility] Address: [address] [place] [address] Performed By: #### 4 537-7, 59630-0 ####[facility]IA [id number] [place] [address] [place] WBC (Bld) [#/Vol] 7.47 10*3/uL Normal 3.70-11.[address] [facility] Comment on above: Order Comment: Speci men Type: BLOOD SPECIMENOrdering Facility: [facility] Address: [address] [place] [address] Performed By: #### 4 537-7, 83690-5 ####[facility]IA [id number] [place] [id number] [place] [facility] [place] CNOVon 03-04-2024 CNOV Office Visit ([facility] ) ----- CAROL ANN MARTINEZ ([id number]) 1985 F Date Time Provider Department 03/04/24 1:[address] During your visit today, we recorded the following information about you: Temperature Pulse Blood pressure Weight 98.1 degrees 95/minute 101/66 55.7 kg Height 1.689 m Cintia Cadena MA 03/04/2024 1:00 PM Signed [facility] FACTS Please visit our lab at least 3-5 days before your scheduled appointment to have your lab work drawn, if lab work is ordered. This will allow us the ability to review your lab work results with you during your scheduled visit. [facility] LAB HOURS: Lab is open Friday - Friday from 6:30am to 5pm and open 8am -12pm on Saturdays. [facility] LAB HOURS: Friday- 7:30am to 5:30pm. Fridays [...] medicine, or pediatrics at any of our [facility] locations and main campus. Janice [...] for next physical. Patient Instructions [facility] FACTS Please visit our lab at least 3-5 days before your scheduled appointment to have your lab work drawn, if lab work is ordered. This will allow us the ability to review your lab work results with you during your scheduled visit. MIRIAN MCGRATH (more content not included)... Normal [facility] CRP SerPl-ncon 03-04-2024 CRP [Mass/Vol] mg/L Normal <0.9 [facility] Comment on above: Order Comment: Speci men Type: BLOOD SPECIMENOrdering Facility: [facility] Address: [address] [place] [address] Performed By: #### 1 1572-5, 01308-1, 1987-5, 2276-4 ####[facility]IA [id number] [place] [address] [place] ESR Westergren method (Bld) [Velocity]on 03-04-2024 ESR (Bld) [Velocity] 5 mm/h Normal 0-20 [facility] Comment on above: Order Comment: Speci men Type: BLOOD SPECIMENOrdering Facility: [facility] Address: [address] [place] [address] Performed By: #### 4 537-7, 10484-2 ####[facility]IA [id number] [place] [address] [place] Ferritin SerPl-mCncon 2023 Ferritin [Mass/Vol] 14.2 ng/mL Low 14.7-205.[address] [facility] Comment on above: Order Comment: Speci men Type: BLOOD SPECIMENOrdering Facility: [facility] Address: [address] [place] [id number] Performed By: #### 1 1572-5, 96069-9, 1988-03, 2276-02 ####[facility]IA [id number] [place] [id number] [place] Iron and Iron binding capaci ty panelon 03-04-2024 Iron [Mass/Vol] 90 ug/dL Normal 41-186 [facility] Comment on above: Order Comment: Speci men Type: BLOOD SPECIMENOrdering Facility: [facility] Address: [address] [place] [address] Performed By: #### 1 157-5, 07910-6, 1988-03, 2276-02 ####[facility]IA [id number] [place] [address] [place] Iron binding capacity [Mass/Vol] 351 ug/dL Normal 232-386 [facility] Comment on above: Order Comment: Speci men Type: BLOOD SPECIMENOrdering Facility: [facility] Address: [address] [place] [address] Performed By: #### 1 157-5, 04136-5, 2276-02 ####[facility]IA [id number] [place] [id number] [place] Iron/TIBC [Molar ratio] 25.6 % Normal 15.0-57.0 [facility] Comment on above: Order Comment: Speci men Type: BLOOD SPECIMENOrdering Facility: [facility] Address: [address] [place], [place] [address] Performed By: #### 1 1572-5, 93619-0, 2276-02 ####[facility] [id number] [place] [id number] [place] No Panel Informationon 03-04 Radiology Study observation (narrative) [facility] Rheumatoid fact SerPl-aCncon 03-04-2024 Rheumatoid factor Qn [IU]/mL Normal <16 [facility] Comment on above: Order Comment: Speci men Type: BLOOD SPECIMENOrdering Facility: [facility] Address: [address] [place] [address] [place] [address] Performed By: #### 1 1572-5, 08032-5, 1987-5, 2276-4 ####[facility] [id number] [address] OF [place] Urate SerPl-mCncon Urate [Mass/Vol] 3.1 mg/dL Normal 2.5-6.6 [facility] Comment on above: Order Comment: Speci men Type: BLOOD SPECIMENOrdering Facility: [facility] Address: [address] [place], [place] [address] [address] Performed By: #### 3 084-1 ####[facility] [id number] [address] OF [facility] XR CERVICAL 4V AP/LAT/OBLon 03-04-2024 XR [...] Preserved cervical disc spaces and neural foramina. 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ANGEL Transcribe Date/Time: Mar 08 2024 4:48P Dictated by : VIKTORIYA WALTER MD This examination was interpreted and the report reviewed and electronically signed by: VIKTORIYA WALTER MD on Mar 08 2024 4:50PM EST [id number] Normal [facility] XR LUMBAR 3V AP/LAT/L5-S1on 03-04-2024 XR [...] Unremarkable radiographic appearance of the lumbar spine. 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 Date/Time: Mar 08 2024 4:47P Dictated by : VIKTORIYA WALTER MD This examination was interpreted and the report reviewed and electronically signed by: VIKTORIYA WALTER MD on Mar 08 2024 4:48PM EST [id number] Normal [facility] A1C with Estimated Average G [facility] 02-24-2024 Glucose [Mass/Vol] 100 mg/dL Normal [facility] Comment on above: Result Comment: PERF ORMED BY: [facility] [address] [place] [address] PATHOLOGIST LIME SPREADER ALEN PRICE M.D. Performed By: #### P TT, HCGQNT, CBC, PT, T4F, A1C WTH eA, TSH3 #### [facility] [address] HbA1c (Bld) [Mass fraction] 5.1 % Normal 4.3-5.6 [facility] Comment on above: Result Comment: Incr eased risk for diabetes: 5.7 - 6.4 diabetes: >6.4 glycemic control for adults with diabetes: <7.0 Performed By: #### P TT, HCGQNT, CBC, PT, T4F, A1C WTH eA, TSH3 #### [facility] [address] Activated partial thrombopla stin time (aPTT) in platelet poor plasma by coagulation aOrdered By: Clarke Hu on 02-24-2024 aPTT Coag (PPP) [Time] 33.7 s 25.1-36.5 [facility] Comment on above: A hematocrit value g reater than 55% may lead to inaccurate results in coagulation testing. Patients having hematocrit values >55% require a special collection tube for coagulation studies. Please contact the laboratory at [phone] for redraw instructions. Basophils Auto (Bld) [#/Vol] Ordered By: Clarke Hu on 02-24-2024 Basophils (Bld) [#/Vol] 0.0 10*3/uL 0.0-0.2 [facility] Basophils/100 WBC Auto (Bld) Ordered By: Clarke Hu on 02-24-2024 Basophils/100 WBC (Bld) 0.5 % . [facility] CNPLilli 02-24-2024 CNPN Telephone ([place]) ----- CAROL ANN MARTINEZ ([id number]) 1985 F Date Time Provider Department 02/24/24 TOR HERNANDEZ During your visit today, we recorded the following information about you: Shereen Scott 02/24/2024 2:33 PM Signed [place] Call Name of caller : Milady Relationship to patient: Barney Osorio Return call phone number : [phone] Reason for call : Other : Brief description of concern : The patient is not considered homebound and they are unable to admit the patient. Champ Baxter LSW 02/26/2024 10:08 AM Signed Spoke with Cassiayunior Urrutia CM, Iris Edge regarding this message. Iris stated she encouraged pt to reach out to her insurance company and request an insurance CM to help her find an outside provider to provide services. Request sent to Tor Hernandez APRN.CNP for orders: non-[facility] outpatient PT, OT and SPT? Once she finds an outside provider, then CF can send the orders. DEZ Archer, [facility] Social Work Tor Hernandez APRN.CNP 02/26/2024 10:23 AM Signed Non-[facility] PT, OT, and RN COMPLIANCE orders placed Tor Hernandez APRN.CNP February 26, [...] Order(s):CONSULT TO PHYSICAL THERAPY [9032] Order #: [id number]: 1 FUTURE CONSULT TO ROBOT DESIGNER [333720] Order #: [id number]: 1 FUTURE CONSULT TO SPEECH THERAPY [4488143] Order #: [id number]: 1 FUTURE Prescriptions as of 02/26/2024 - [...] (FLONASE) 50 mcg/actuation nasal spray Use 1 Freedom in each nostril once daily. Problem List [...] extremity [R6 (more content not included)... Normal [facility] Choriogonadotropin.beta subu nit [Units/volume] in Serum or PlasmaOrdered By: Clarke Hu on 02-24-2024 HCG.beta subunit Qn 791.11 m[IU]/mL [facility] Comment on above: Approximate Approxim ate hCG Gestational Age Range (mIU/ml) (weeks)0.2-1 5-50 1-2 50-500 2-3 100-5,000 3-4 500-10,000 4-5 1,000-50,000 5-6 10,000-100,000 6-8 15,000-200,000 8-12 10,000-100,000 Complete Blood Count Auto Di ffon 02-24-2024 Basophils (Bld) [#/Vol] 0.0 10*3/uL Normal 0.0-0.2 [facility] Comment on above: Result Comment: PERF ORMED BY: [facility] [address] [place], [place] [address] PATHOLOGIST LIME SPREADER ALEN PRICE M.D. Performed By: #### P TT, HCGQNT, CBC, PT, T4F, A1C WTH eA, TSH3 #### [address] Basophils/100 WBC (Bld) 0.5 % Normal . [facility] Comment on above: Performed By: #### P TT, HCGQNT, CBC, PT, T4F, A1C WTH eA, TSH3 #### [address] Eosinophils (Bld) [#/Vol] 0.0 10*3/uL Normal 0.0-0.45 [facility] Comment on above: Performed By: #### P TT, HCGQNT, CBC, PT, T4F, A1C WTH eA, TSH3 #### [address] Eosinophils/100 WBC (Bld) 0.2 % Normal . [facility] Comment on above: Performed By: #### P TT, HCGQNT, CBC, PT, T4F, A1C WTH eA, TSH3 #### [address] Erythrocyte distribution width (RBC) [Ratio] 15.2 % Normal 11.9-15.3 [facility] Comment on above: Performed By: #### P TT, HCGQNT, CBC, PT, T4F, A1C WTH eA, TSH3 #### [address] Hematocrit (Bld) [Volume fraction] 36.9 % Normal 34.0-46.4 [facility] Comment on above: Performed By: #### P TT, HCGQNT, CBC, PT, T4F, A1C WTH eA, TSH3 #### [address] Hemoglobin (Bld) [Mass/Vol] 11.7 g/dL Low 11.8-15.4 [facility] Comment on above: Performed By: #### P TT, HCGQNT, CBC, PT, T4F, A1C WTH eA, TSH3 #### [address] Lymphocytes (Bld) [#/Vol] 2.1 10*3/uL Normal 1.00-4.8 [facility] Comment on above: Performed By: #### P TT, HCGQNT, CBC, PT, T4F, A1C WTH eA, TSH3 #### [address] Lymphocytes/100 WBC (Bld) 26.9 % Normal . [facility] Comment on above: Performed By: #### P TT, HCGQNT, CBC, PT, T4F, A1C WTH eA, TSH3 #### [address] MCH (RBC) [Entitic mass] 24.4 pg Low 24.7-34.3 [facility] Comment on above: Performed By: #### P TT, HCGQNT, CBC, PT, T4F, A1C WTH eA, TSH3 #### [address] MCV (RBC) [Entitic vol] 76.5 fL Low 80-100 [facility] Comment on above: Performed By: #### P TT, HCGQNT, CBC, PT, T4F, A1C WTH eA, TSH3 #### [address] Mean Corpuscular HGB Conc 31.8 g/dL Low 32.0-35.0 [facility] Comment on above: Performed By: #### P TT, HCGQNT, CBC, PT, T4F, A1C WTH eA, TSH3 #### [address] Monocytes (Bld) [#/Vol] 0.7 10*3/uL Normal 0.0-0.8 [facility] Comment on above: Performed By: #### P TT, HCGQNT, CBC, PT, T4F, A1C WTH eA, TSH3 #### [place] [id number] [place] Monocytes/100 WBC (Bld) 9.3 % Normal . [facility] Comment on above: Performed By: #### P TT, HCGQNT, CBC, PT, T4F, A1C WTH eA, TSH3 #### [address] Neutrophils (Bld) [#/Vol] 5.0 10*3/uL Normal 1.8-7.7 [facility] Comment on above: Performed By: #### P TT, HCGQNT, CBC, PT, T4F, A1C WTH eA, TSH3 #### [address] Neutrophils/100 WBC (Bld) 63.1 % Normal . [facility] Comment on above: Performed By: #### P TT, HCGQNT, CBC, PT, T4F, A1C WTH eA, TSH3 #### [address] NRBC% 0.0 /100{WBC} Normal 0-0.5 [facility] Comment on above: Performed By: #### P TT, HCGQNT, CBC, PT, T4F, A1C WTH eA, TSH3 #### [address] Platelet mean volume (Bld) [Entitic vol] 11.1 fL High 6.3-10.7 [facility] Comment on above: Performed By: #### P TT, HCGQNT, CBC, PT, T4F, A1C WTH eA, TSH3 #### [place] [address] [place] Platelets (Bld) [#/Vol] 187 10*3/uL Normal 150-450 [facility] Comment on above: Performed By: #### P TT, HCGQNT, CBC, PT, T4F, A1C WTH eA, TSH3 #### [address] RBC (Bld) [#/Vol] 4.82 10*6/uL Normal 3.60-5.00 [facility] Comment on above: Performed By: #### P TT, HCGQNT, CBC, PT, T4F, A1C WT eA, TSH3 #### [facility] [address] WBC (Bld) [#/Vol] 7.9 10*3/uL Normal 3.8-11.6 [facility] Comment on above: Performed By: #### P TT, HCGQNT, CBC, PT, T4F, A1C WT eA, TSH3 #### [facility] [address] Eosinophils Auto (Bld) [#/Vo l]Ordered By: Clarke Hu on 02-24-2024 Eosinophils (Bld) [#/Vol] 0.0 10*3/uL 0.0-0.45 [facility] Eosinophils/100 WBC Auto (Bl d)Ordered By: Clarke Hu on 02-24-2024 Eosinophils/100 WBC (Bld) 0.2 % . [facility] Erythrocyte distribution wid th Auto (RBC) [Ratio]Ordered By: Clarke Hu on 02-24-2024 Erythrocyte distribution width (RBC) [Ratio] 15.2 % 11.9-15.3 [facility] Free T4 (Free Thyroxine)on 0 02-24-2024 Free T4 [Mass/Vol] 0.82 ng/dL Normal 0.61-1.12 [facility] Comment on above: Performed By: #### P TT, HCGQNT, CBC, PT, T4F, A1C WT eA, TSH3 #### [address] Glucose mean value [Mass/vol ume] in Blood Estimated from glycated hemoglobinOrdered By: Clarke Hu on 02-24-2024 Average glucose Estimated from glycated hemoglobin (Bld) [Mass/Vol] 100 mg/dL [facility] HCG,Quantitativeon 4 HCG,Quantitative 791.11 m[iU]/mL Normal [facility] Comment on above: Result Comment: Appr oximate Approximate hCG Gestational Age Range (mIU/ml) (weeks) 0.2-1 5-50 1-2 50-500 2-3 100-5,000 3-4 500-10,000 4-5 1,000-50,000 5-6 10,000-100,000 6-8 15,000-200,000 8-12 10,000-100,000 PERFORMED BY: [facility] [address] [place] [address] PATHOLOGIST LIME SPREADER ALEN PRICE M.D. Performed By: #### P TT, HCGQNT, CBC, PT, T4F, A1C WTH eA, TSH3 #### [facility] [address] Hematocrit Auto (Bld) [Volum e fraction]Ordered By: Clarke Hu on 02-24-2024 Hematocrit (Bld) [Volume fraction] 36.9 % 34.0-46.4 [facility] Hemoglobin A1c percentageOrd ered By: Clarke Hu on 02-24-2024 HbA1c (Bld) [Mass fraction] 5.1 % 4.3-5.6 [facility] Comment on above: Increased risk for d iabetes: 5.7 - 6.4diabetes: >6.4glycemic control for adults with diabetes: <7.0 Hemoglobin [Mass/volume] in BloodOrdered By: Clarke Hu on 02-24-2024 Hemoglobin (Bld) [Mass/Vol] 11.7 g/dL 11.8-15.4 [facility] INR in Platelet poor plasma by Coagulation assayOrdered By: Clarke Hu on 02-24-2024 INR Coag (PPP) [Relative time] 1.1 {INR} [facility] Comment on above: INR Therapeutic Rang [...] RBC Auto (Bld) [#/Vol] 7.9 10*3/uL 3.8-11.6 [facility] Lymphocytes Auto (Bld) [#/Vo l]Ordered By: Clarke Hu on 02-24-2024 Lymphocytes (Bld) [#/Vol] 2.1 10*3/uL 1.00-4.8 [facility] Lymphocytes/100 WBC Auto (Bl d)Ordered By: Clarke Hu on 02-24-2024 Lymphocytes/100 WBC (Bld) 26.9 % . [facility] MCH Auto (RBC) [Entitic mass ]Ordered By: Clarke Hu on 02-24-2024 MCH (RBC) [Entitic mass] 24.4 pg 24.7-34.3 [facility] MCHC Auto (RBC) [Mass/Vol]Or dered By: Clarke Hu on 02-24-2024 MCHC (RBC) [Mass/Vol] 31.8 g/dL 32.0-35.0 [facility] MCV Auto (RBC) [Entitic vol] Ordered By: Clarke Hu on 02-24-2024 MCV (RBC) [Entitic vol] 76.5 fL 80-100 [facility] Monocytes Auto (Bld) [#/Vol] Ordered By: Clarke Hu on 02-24-2024 Monocytes (Bld) [#/Vol] 0.7 10*3/uL 0.0-0.8 [facility] Monocytes/100 WBC Auto (Bld) Ordered By: Clarke Hu on 02-24-2024 Monocytes/100 WBC (Bld) 9.3 % . [facility] Neutrophils Auto (Bld) [#/Vo l]Ordered By: Clarke Hu on 02-24-2024 Neutrophils (Bld) [#/Vol] 5.0 10*3/uL 1.8-7.7 [facility] Neutrophils/100 WBC Auto (Bl d)Ordered By: Clarke Hu on 02-24-2024 Neutrophils/100 WBC (Bld) 63.1 % . [facility] Nucleated erythrocytes [Pres ence] in Blood by Automated countOrdered By: Clarke Hu on 02-24-2024 Nucleated RBC Auto Ql (Bld) 0.0 /100{WBC} 0-0.5 [facility] Partial Thromboplastin Timeo n 02-24-2024 aPTT Coag (Bld) [Time] 33.7 s Normal 25.1-36.5 [facility] Comment on above: Result Comment: A he matocrit value greater than 55% may lead to inaccurate results in coagulation testing. Patients having hematocrit values >55% require a special collection tube for coagulation studies. Please contact the laboratory at [phone] for redraw instructions. PERFORMED BY: [place] [address] PATHOLOGIST LIME SPREADER ALEN PRICE M.D. Performed By: #### P TT, HCGQNT, CBC, PT, T4F, A1C WTH eA, TSH3 #### [facility] [address] [place] [address] Platelet mean volume Auto (B ld) [Entitic vol]Ordered By: Clarke Hu on 02-24-2024 Platelet mean volume (Bld) [Entitic vol] 11.1 fL 6.3-10.7 [facility] Platelets Auto (Bld) [#/Vol] Ordered By: Clarke Hu on 02-24-2024 Platelets (Bld) [#/Vol] 187 10*3/uL 150-450 [facility] Prothrombin Time INRon 02-23 INR Coag (PPP) [Relative time] 1.1 {INR} Normal [facility] Comment on above: [...] PT, T4F, A1C WT eA, TSH3 #### [facility] [address] [place] [address] PT Coag (PPP) [Time] 12.2 s Normal 9.0-12.9 [facility] Comment on above: Result Comment: A he matocrit value greater than 55% may lead to inaccurate results in coagulation testing. Patients having hematocrit values >55% require a special collection tube for coagulation studies. Please contact the laboratory at [phone] for redraw instructions. Performed By: #### P TT, HCGQNT, CBC, PT, T4F, A1C WTH eA, TSH3 #### [facility] [address] [place] [id number] [facility] Prothrombin time (PT)Ordered By: Clarke Hu on 02-24-2024 PT Coag (PPP) [Time] 12.2 s 9.0-12.9 [facility] Comment on above: A hematocrit value g reater than 55% may lead to inaccurate results in coagulation testing. Patients having hematocrit values >55% require a special collection tube for coagulation studies. Please contact the laboratory at [phone] for redraw instructions. RBC Auto (Bld) [#/Vol]Ordere d By: Clarke Hu on 02-24-2024 RBC (Bld) [#/Vol] 4.82 10*6/uL 3.60-5.00 [facility] Thyroid Stimulating Hormoneo n 02-24-2024 TSH Qn 0.96 m[IU]/L Normal 0.45-5.33 [facility] Comment on above: Performed By: #### P TT, HCGQNT, CBC, PT, T4F, A1C WTH eA, TSH3 #### [facility] [address] [place] [id number] [facility] Thyrotropin [Units/volume] i n Serum or PlasmaOrdered By: Clarke Hu on 02-24-2024 TSH Qn 0.96 m[IU]/L 0.45-5.33 [facility] Thyroxine (T4) free [Mass/vo lume] in Serum or PlasmaOrdered By: Clarke Hu on 02-24-2024 Free T4 [Mass/Vol] 0.82 ng/dL 0.61-1.12 [facility] WBC Auto (Bld) [#/Vol]Ordere d By: Clarke Mayte on 02-24-2024 WBC (Bld) [#/Vol] 7.9 10*3/uL 3.8-11.6 [facility] CNPNon 02-18-2024 CNPN Telephone (NEMN) ----- CAROL NAN MARTINEZ ([id number]) 1985 F Date Time Provider Department 02/18/24 CHAMP BAXTER SAMEER During your visit today, we recorded the following information about you: Diana Garcia 02/18/2024 8:55 AM Signed Tex Call Name of caller : IrisDonte [facility] Relationship to patient: Self Return call phone number : [phone] Reason for call : Would like a [...] Date Reviewed: 01/19/2024 Reviewed by: Kaitlyn Forbes, checker loader - Fully Assessed Reason for Visit: Patient [...] (FLONASE) 50 mcg/actuation nasal spray Use 1 Freedom in each nostril once daily. Problem List [...] Status:Closed by CHAMP BAXTER on 02/18/24 [facility] CNPN Telephone (NEMSMN) ----- CAROL ANN MARTINEZ ([id number]) 1985 F Date Time Provider Department 02/03/24 CHAMP BAXTER NEMROMEO During your visit today, we recorded the following information about you: Clarice Zepeda HUC 02/03/2024 1:33 PM Signed Tex Call Name of caller : Iris Edge Relationship to patient: [facility] Return call phone number : [phone] Reason for call : Other : Brief description of concern : Has follow up questions Champ Baxter LSW 02/04/2024 9:37 AM Signed Returned BROOKLYN Simmons's call. Iris stated pt was approved for a [facility] aide one day a week for 45 min to assist with additonal care needs. Iris is requesting an order from the doctor to start care. I will e-mail Iris the order when completed. DEZ Archer, [facility] Social Work Allergies As of Date: [...] Date Reviewed: 01/19/2024 Reviewed by: Kaitlyn Forbes, checker loader - Fully Assessed Reason for Visit: Patient Question [7987] Prescriptions as of 02/04/2024 - Norethindrone, Contraceptive, [...] (FLONASE) 50 mcg/actuation nasal spray Use 1 Freedom in each nostril once daily. Problem List [...] Status:Closed by CHAMP BAXTER on 02/04/24 Normal [facility] MR Thoracic spine WO and W c ontrast Joe 01-19-2024 [facility] MRI THORACIC SPINE WO/W IVCO [...] identified to suggest active or progressive disease. 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 Transcribe Date/Time: Jan 19 2024 3:31P Dictated by : LOVE WHARTON MD This examination was interpreted and the report reviewed and electronically signed by: LOVE WHARTON MD on Jan 19 2024 3:43PM EST [id number] Normal [facility] CNPNon 01-05-2024 CNPN Telephone [facility] ----- CAROL ANN MARTINEZ ([id number]) 1985 F Date Time Provider Department 01/05/24 [...] Date Reviewed: 12/25/2023 Reviewed by: Tor Hernandez APRN.SYSTEMS ADMINISTRATOR - Fully Assessed Reason for Visit: Appointment [...] (FLONASE) 50 mcg/actuation nasal spray Use 1 Freedom in each nostril once daily. Problem List [...] Status:Closed by NADINE JAMES on 01/05/24 [facility] CNOVon 12-25-2023 CNOV Office Visit (NEMSLR ) ----- CAROL ANN MARTINEZ ([id number]) 1985 F Date Time Provider Department 12/25/23 11:00 AM TOR HERNANDEZ During your visit today, we recorded the following information about you: Pulse Blood pressure Weight Last Period 87/minute 95/67 56.8 kg 12/21/23 Tor Hernandez APRN.SYSTEMS ADMINISTRATOR 12/25/2023 12:09 PM [facility] FOLLOWUP/ESTABLISHED PATIENT VISIT PRINCIPAL NEUROLOGIC DIAGNOSIS: Multiple Sclerosis DISEASE SUMMARY Date of onset: 03/2007 Date of diagnosis of MS: 03/2007 Disease course at onset: Relapsing-Remitting Current disease course: Progressive without relapses Previous disease therapies: - Betaseron [id number] - Copaxone 2819-1265 - Tysabri 2009-Summer 2019 (stopped due to [...] over 3 weeks following occipital relase - 2680-0230 recurrent OS ON - 3956-0706 several relapses including L numbness, weakness, constipation, urinary urgency - 2019 R weakness and numbness needing a wheelchair, hospitalized at [facility] (off Tysabri x3 months due to [...] 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 Office Visit from 01/17/[address] [facility] Appointment from 01/15/[address] [facility] Upper Extremity Domain T Score 28.29 [...] Row Office Visit from 07/23/[address] [facility] Office Visit from 01/17/[address] [facility] Appointment from 01/15/[address] [facility] Sleep Domain T Score 69.2 68.89 [...] Edema of lower extremity (04/17/2021), Multiple sclerosis ([facility]), Seizure ([facility]), and Thyroid disease. She has no past medical history of Asthma, Blood dyscrasia, Breast disorder, Chlamydia, Chronic kidney disease, Complication of anesthesia, Coronary artery disease, Diabetes ([facility]), Diabetes, gestational, Gonorrhea, Herpes simplex virus (HSV) infection, History of pre-eclampsia in prior , currently , HIV infection (HCC), Hypertension, Infertility, female, L (more content not included)... Normal [facility] CNPNon 12-25-2023 CNPN Telephone (HCSIND) ----- MARTINEZCAROL ANN GREWAL ([id number]) 1985 F Date Time Provider Department 12/25/23 LISA ELLIOTT HCSIND During your visit today, we recorded the following information about you: Lisa Elliott 12/25/2023 2:08 PM Addendum Spoke with Roxy from [facility] and accepted the patient for Home Care. Thank you for the referral of your patient to [facility]. At this time, we are unable to accommodate your patient's needs in a safe and timely fashion. In order to help your patient receive quality home care, we will assist in finding alternate staffing. I have forwarded the referral to [facility], and it is pending. I will notify you when we have an accepting agency. Thank you. Thank you for the referral of your patient to [facility]. At this time, we are unable to accommodate your patient's needs in a safe and timely fashion. In order to help your patient receive quality home care, we will assist in finding alternate staffing. I have forwarded the referral to [facility], and it is declined. I will notify you when we have an accepting agency. Thank you. Thank you for the referral of your patient to [facility]. At this time, we are unable to accommodate your patient's needs in a safe and timely fashion. In order to help your patient receive quality home care, we will assist in finding alternate staffing. I have forwarded the referral to [facility], and it is declined. I will [...] Date Reviewed: 12/25/2023 Reviewed by: Tor Hernandez APRN.SYSTEMS ADMINISTRATOR - Fully Assessed Reason for Visit: Home [...] (FLONASE) 50 mcg/actuation nasal spray Use 1 Freedom in each nostril once daily. Problem List As Of Date 12/25/2023 Noted Resolved Multiple sclerosis (HCC) [G35] 11/15/2019 Chronic insomnia [F51.04] 01/04/2020 AMA (advanced maternal age) primigravida 35+, s*2020 01/11/2021 History of loop electrosurgical excision proced*2020 01/11/2021 Poor growth affecting (more content not included)... Normal [facility] HCG ( test) Ql (U)o n 12-23-2023 Interpretation and review of laboratory results Normal [facility] Preg Test, Ur Negative [facility] Laboratory - Microbiology an d Antimicrobial susceptibilityon 12-23-2023 SARS-CoV-2 (COVID-19) RNA DEIRDRE+probe Ql (Unsp spec) Negative [facility] No Panel Informationon 12-23 FLU A Negative [facility] FLU B Negative [facility] Interpretation and review of laboratory results Normal [facility] Toño 11-28-2023 L Specimen: [id number] Received: 11/28/23-1310 Status: ALLISON See Num: [id number] Spec Type: Surgical Subm Dr: Clarke Hu Tissues: A Endometrium - Curettings (EMC) Procedures: HE/2, Gross/Micro L4 Age/ Patient Sex Location Account Attending Physician Carol Ann Martinez 38/F [place] [id number] Clarke Hu SPEC NUM: [id number] RECD: 11/28/23 STATUS: ALLISON SEE NUM: [id number] ALLAN: 11/28/[address]: Clarke Hu ENTERED: 11/28/23 [facility] DR: Sherry,Vickey SPEC TYPE: Surgical DEPT: [...] in one cassette labeled A1. CPT Codes 87262 Specimen: BS Received: 11/28/23 Status: ALLISON See Num: [id number] Spec Type: Surgical Subm Dr: Clarke Hu Tissues: A Endometrium - Curettings (EMC) Procedures: HE/2, Gross/Micro L4 Patient: Carol Ann Martinez [id number] (Continued) Signed (signature on file) Edu Watkins MD 12/01/239 [place] [facility] 10-13-2023 [facility] Social Work (HEMASA) ----- CAROL ANN MARTINEZ ([id number]) 1985 F Date Time Provider Department 10/13/23 [...] (FLONASE) 50 mcg/actuation nasal spray Use 1 Freedom in each nostril once daily. Problem List [...] Status:Closed by ALEXANDRA HOGAN on 10/13/23 Normal [facility] CBC W Auto Differential pane l (Bld)on 09-25-2023 Basophils (Bld) [#/Vol] 0.03 10*3/uL <0.11 k/uL [facility] Basophils/100 WBC (Bld) 0.8 % [facility] Differential cell count method Nom (Bld) Auto [facility] Eosinophils (Bld) [#/Vol] 0.07 10*3/uL <0.46 k/uL [facility] Eosinophils/100 WBC (Bld) 1.8 % [facility] Erythrocyte distribution width (RBC) [Ratio] 17.1 % High 11.5 - 15.0 % [facility] Hematocrit (Bld) [Volume fraction] 41.0 % 36.0 - 46.0 % [facility] Hemoglobin (Bld) [Mass/Vol] 12.5 g/dL 11.5 - 15.5 g/dL [facility] Immature granulocytes (Bld) [#/Vol] <0.10 k/uL [facility] Immature granulocytes/100 WBC (Bld) 0.0 % [facility] Lymphocytes (Bld) [#/Vol] 2.63 10*3/uL 1.00 - 4.00 k/uL [facility] Lymphocytes/100 WBC (Bld) 66.4 % [facility] MCH (RBC) [Entitic mass] 23.7 pg Low 26.0 - 34.0 pg [facility] MCHC (RBC) [Mass/Vol] 30.5 g/dL 30.5 - 36.0 g/dL [facility] MCV (RBC) [Entitic vol] 77.7 fL Low 80.0 - 100.0 fL [facility] Monocytes (Bld) [#/Vol] 0.51 10*3/uL <0.87 k/uL [facility] Monocytes/100 WBC (Bld) 12.9 % [facility] Neutrophils (Bld) [#/Vol] 0.72 10*3/uL Low 1.45 - 7.50 k/uL [facility] Neutrophils/100 WBC (Bld) 18.1 % [facility] Nucleated RBC (Bld) [#/Vol] <0.01 k/uL [facility] Nucleated RBC/100 WBC (Bld) [Ratio] 0.0 /100 WBC [facility] Platelet mean volume (Bld) [Entitic vol] [facility] Platelets (Bld) [#/Vol] 179 10*3/uL 150 - 400 k/uL [facility] RBC (Bld) [#/Vol] 5.28 10*6/uL High 3.90 - 5.2 0 m/uL [facility] WBC (Bld) [#/Vol] 3.96 10*3/uL 3.70 - 11. 00 k/uL [facility] Comprehensive metabolic 2000 panelon 09-25-2023 Albumin [Mass/Vol] 4.5 g/dL 3.9 - 4.9 g/dL [facility] ALP [Catalytic activity/Vol] 58 U/L 34 - 123 U/L [facility] ALT [Catalytic activity/Vol] 11 U/L 7 - 38 U/L [facility] Anion gap [Moles/Vol] 9 mmol/L 9 - 18 mmol/L [facility] AST [Catalytic activity/Vol] 17 U/L 13 - 35 U/L [facility] Bilirubin [Mass/Vol] 0.5 mg/dL 0.2 - 1 .3 mg/dL [facility] Calcium [Mass/Vol] 9.5 mg/dL 8.5 - 10. 2 mg/dL [facility] Chloride [Moles/Vol] 106 mmol/L High 97 - 10 5 mmol/L [facility] CO2 [Moles/Vol] 26 mmol/L 22 - 30 mmol/L [facility] Creatinine [Mass/Vol] 0.95 mg/dL 0.58 - 0.96 mg/dL [facility] Estimated Glomerular Filtration Rate 79 mL/min/1.73m >=60 mL/min/1.73m [facility] Glucose [Mass/Vol] 89 mg/dL 74 - 99 mg/dL [facility] Potassium [Moles/Vol] 3.6 mmol/L Low 3.7 - 5.1 mmol/L [facility] Protein [Mass/Vol] 7.4 g/dL 6.3 - 8.0 g/dL [facility] Sodium [Moles/Vol] 141 mmol/L 136 - 144 mmol/L [facility] Urea nitrogen [Mass/Vol] 14 mg/dL 7 - 21 mg/dL [facility] HBV surface Ab Ql (S)on 09-10 HBV surface Ab Qn (S) 528.76 mIU/mL [facility] HEP B CORE AB TOTALon 2022 HBV core Ab Ql (S) Negative Negative [facility] HEP B SURF ABon 09-25-2023 HBV surface Ab Ql (S) Positive [facility] HEP B SURF AG SCRNon 023 HBV surface Ag Ql (S) Negative Negative [facility] HEPATITIS C ANTIBODY IA WITH CONFIRMATIONon 09-25-2023 HCV Ab Ql (S) Negative Negative [facility] PELVIC US WHIon 08-26-2023 [facility] Trichmonas Vaginalis Screen (EIA)on 01-24-2023 Trichomonas Vaginalis Screen (EIA) Negative Normal [facility] Comment on above: Performed By: #### E TRIC #### [facility] [address] [place] [address] Wet [employer] On berry 01-24-2023 Wet Prep Clue Cellls 1+ Abnormal [facility] Comment on above: Performed By: #### W ETPR #### [facility] [address] [place] [address] Wet Prep Trichomonas See EIA Normal [facility] Comment on above: Performed By: #### W ETPR #### [facility] [address] [place] [address] Wet Prep Yeast None Seen Normal [facility] Comment on above: Performed By: #### W ETPR #### [facility] [address] [place] [address] CBC W Auto Differential pane l (Bld)on 01-17-2023 Basophils (Bld) [#/Vol] 0.07 10*3/uL <0.11 k/uL [facility] Basophils/100 WBC (Bld) 1.0 % [facility] Differential cell count method Nom (Bld) Auto [facility] Eosinophils (Bld) [#/Vol] 0.07 10*3/uL <0.46 k/uL [facility] Eosinophils/100 WBC (Bld) 1.0 % [facility] Erythrocyte distribution width (RBC) [Ratio] 15.5 % High 11.5 - 15.0 % [facility] Hematocrit (Bld) [Volume fraction] 31.5 % Low 36.0 - 46.0 % [facility] Hemoglobin (Bld) [Mass/Vol] 9.4 g/dL Low 11.5 - 15.5 g/dL [facility] Immature granulocytes (Bld) [#/Vol] <0.10 k/uL [facility] Immature granulocytes/100 WBC (Bld) 0.3 % [facility] Lymphocytes (Bld) [#/Vol] 2.30 10*3/uL 1.00 - 4.00 k/uL [facility] Lymphocytes/100 WBC (Bld) 32.7 % [facility] MCH (RBC) [Entitic mass] 22.2 pg Low 26.0 - 34.0 pg [facility] MCHC (RBC) [Mass/Vol] 29.8 g/dL Low 30.5 - 36.0 g/dL [facility] MCV (RBC) [Entitic vol] 74.3 fL Low 80.0 - 100.0 fL [facility] Monocytes (Bld) [#/Vol] 0.51 10*3/uL <0.87 k/uL [facility] Monocytes/100 WBC (Bld) 7.2 % [facility] Neutrophils (Bld) [#/Vol] 4.07 10*3/uL 1.45 - 7.50 k/uL [facility] Neutrophils/100 WBC (Bld) 57.8 % [facility] Nucleated RBC (Bld) [#/Vol] <0.01 k/uL [facility] Nucleated RBC/100 WBC (Bld) [Ratio] 0.0 /100 WBC [facility] Platelet mean volume (Bld) [Entitic vol] 13.6 fL High 9.0 - 12.7 fL [facility] Platelets (Bld) [#/Vol] 304 10*3/uL 150 - 400 k/uL [facility] RBC (Bld) [#/Vol] 4.24 10*6/uL 3.90 - 5.2 0 m/uL [facility] WBC (Bld) [#/Vol] 7.04 10*3/uL 3.70 - 11. 00 k/uL [facility] Comprehensive metabolic 2000 panelon 01-17-2023 Albumin [Mass/Vol] 4.5 g/dL 3.9 - 4.9 g/dL [facility] ALP [Catalytic activity/Vol] 62 U/L 34 - 123 U/L [facility] ALT [Catalytic activity/Vol] 11 U/L 7 - 38 U/L [facility] Anion gap [Moles/Vol] 9 mmol/L 9 - 18 mmol/L [facility] AST [Catalytic activity/Vol] 18 U/L 13 - 35 U/L [facility] Bilirubin [Mass/Vol] 0.3 mg/dL 0.2 - 1 .3 mg/dL [facility] Calcium [Mass/Vol] 9.8 mg/dL 8.5 - 10. 2 mg/dL [facility] Chloride [Moles/Vol] 104 mmol/L 97 - 10 5 mmol/L [facility] CO2 [Moles/Vol] 26 mmol/L 22 - 30 mmol/L [facility] Creatinine [Mass/Vol] 0.79 mg/dL 0.58 - 0.96 mg/dL [facility] Estimated Glomerular Filtration Rate 99 mL/min/1.73m >=60 mL/min/1.73m [facility] Glucose [Mass/Vol] 69 mg/dL Low 74 - 99 mg/dL [facility] Potassium [Moles/Vol] 4.2 mmol/L 3.7 - 5.1 mmol/L [facility] Protein [Mass/Vol] 7.9 g/dL 6.3 - 8.0 g/dL [facility] Sodium [Moles/Vol] 139 mmol/L 136 - 144 mmol/L [facility] Urea nitrogen [Mass/Vol] 11 mg/dL 7 - 21 mg/dL [facility] MR Brain WO and W contrast I Von 01-02-2023 * * *Final Report* * * DATE OF EXAM: Jan 02 2023 11:24AM [facility] 0295 - MRI BRAIN WO/W IVCON [...] Improvement: None. New Enhancing Lesions: None T2 [place] of Disease: Mild. Parenchymal Volume Loss: None. [...] history of multiple sclerosis. Cord T2 Plaque [place]: Moderate New T2 Lesions: None Interval Cord [...] equal to 2mm). DIVISION OF RADIOLOGY Provider, [facility] - 01/02/2023 * * *Final [...] Improvement: None. New Enhancing Lesions: None T2 [place] of Disease: Mild. Parenchymal Volume Loss: None. [...] history of multiple sclerosis. Cord T2 Plaque [place]: Moderate New T2 Lesions: None Interval Cord [...] vertebrae with counting from the craniocervical junction. 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[facility] Transcribe Date/Time: Jan 02 2023 12:13P Dictated by : JEANIE MAKI MD This examination was interpreted and the report reviewed and electronically signed by: JEANIE MAKI MD on Jan 02 2023 12:23PM [facility] MR Cervical spine WO and W [...] Improvement: None. New Enhancing Lesions: None T2 [place] of Disease: Mild. Parenchymal Volume Loss: None. [...] history of multiple sclerosis. Cord T2 Plaque [place]: Moderate New T2 Lesions: None Interval Cord [...] equal to 2mm). DIVISION OF RADIOLOGY Provider, [facility] - 01/02/2023 * * *Final [...] Improvement: None. New Enhancing Lesions: None T2 [place] of Disease: Mild. Parenchymal Volume Loss: None. [...] history of multiple sclerosis. Cord T2 Plaque [place]: Moderate New T2 Lesions: None Interval Cord [...] vertebrae with counting from the craniocervical junction. 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 Date/Time: Jan 02 2023 12:13P Dictated by : JEANIE MAKI MD This examination was interpreted and the report reviewed and electronically signed by: JEANIE MAKI MD on Jan 02 2023 12:23PM [facility] Panel Informationon 01-02 IMPRESSION: Multiple intracranial [...] vertebrae with counting from the craniocervical junction. 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 Date/Time: Jan 02 2023 12:13P Dictated by : JEANIE MAKI MD This examination was interpreted and the report reviewed and electronically signed by: JEANIE MAKI MD on Jan 02 2023 12:23PM [facility] DIVISION OF RADIOLOGY Brain Enhancing Lesions None [facility] Brain Interval Improvement None [facility] Brain New T2 Lesions None Site [facility] Brain Other Significant MRI Findings None. [facility] Brain Parenchymal Volume Loss None [facility] Brain T2 [place] of Disease Mild [facility] Cervical spine enhancing lesions None [facility] Cervical Spine New T2 Lesions None [facility] Cervical Spine T2 [place] of Disease Moderate [facility] Radiology Study observation (narrative) [facility] No Panel InformationOrdered By: Ccf Provider on 01-02-2023 [facility] C.trachomatis N.gonorrhoeae DNAon 12-10-2022 C. trachomatis DNA DEIRDRE+probe Ql (Unsp spec) Negative Normal Negative [facility] N. gonorrhoeae DNA DEIRDRE+probe Ql (Unsp spec) Negative Normal Negative [facility] Trichmonas Vaginalis Screen (EIA)on 12-06-2022 Trichomonas Vaginalis Screen (EIA) Negative Normal [facility] Comment on above: Performed By: #### E TRIC #### [facility] [address] [place] [address] Wet Prep-Medical Purposes On berry 12-06-2022 Wet Prep Clue Cellls 1+ Abnormal [facility] Comment on above: Performed By: #### W ETPR #### [facility] [address] [place] [address] Wet Prep Trichomonas See EIA Normal [facility] Comment on above: Performed By: #### W ETPR #### [facility] [address] [place] [address] Wet Prep Yeast None Seen Normal [facility] Comment on above: Performed By: #### W ETPR #### [facility] [address] [place] [address] Albumin [Mass/volume] in Ser um or PlasmaOrdered By: Vishal Agarwal on 10-27-2022 Albumin [Mass/Vol] 4.1 g/dL 3.2-5.5 [facility] Basophils Auto (Bld) [#/Vol] Ordered By: Vishal Agarwal on 10-27-2022 Basophils (Bld) [#/Vol] 0.0 10*3/uL 0.0-0.2 [facility] Basophils/100 WBC Auto (Bld) Ordered By: Vishal Agarwal on 10-27-2022 Basophils/100 WBC (Bld) 0.4 % . [facility] COVID CepheidOrdered By: Brook Agarwal on 10-27-2022 SARS-CoV-2 (COVID-19) Ab IA Ql Positive Negative [facility] Comment on above: This is a duplicate [employer] Xpert Xpress CoV-2/Flu/RSV Plus RNA by RT-PCR result to be used for statistical tracking purpose only. SARS-CoV-2 (COVID-19) RNA DEIRDRE+probe Ql (Unsp spec) [facility] Creatinine and Glomerular fi ltration rate.predicted panel (S/P/Bld)Ordered By: Vishal Agarwal on 10-27-2022 Creatinine [Mass/Vol] 0.96 mg/dL 0.44-1.03 [facility] Eosinophils Auto (Bld) [#/Vo l]Ordered By: Vishal Agarwal on 10-27-2022 Eosinophils (Bld) [#/Vol] 0.0 10*3/uL 0.0-0.45 [facility] Eosinophils/100 WBC Auto (Bl d)Ordered By: Vishal Agarwal on 10-27-2022 Eosinophils/100 WBC (Bld) 0.0 % . [facility] Erythrocyte distribution wid th Auto (RBC) [Ratio]Ordered By: Vishal Agarwal on 10-27-2022 Erythrocyte distribution width (RBC) [Ratio] 17.4 % 11.9-15.3 [facility] Estimated glomerular filtrat ion rate (GFR) non- AmericanOrdered By: Vishal Agarwal on 10-27-2022 GFR/1.73 sq M.predicted among non-blacks MDRD (S/P/Bld) [Vol rate/Area] > 60 mL/Min [facility] Globulin Calc (S) [Mass/Vol] Ordered By: Vishal Agarwal on 10-27-2022 Globulin (S) [Mass/Vol] 3.5 g/dL [facility] Hematocrit Auto (Bld) [Volum e fraction]Ordered By: Vishal Agarwal on 10-27-2022 Hematocrit (Bld) [Volume fraction] 38.7 % 34.0-46.4 [facility] Hemoglobin [Mass/volume] in BloodOrdered By: Vishal Agarwal on 10-27-2022 Hemoglobin (Bld) [Mass/Vol] 12.1 g/dL 11.8-15.4 [facility] Leukocytes [#/volume] correc che for nucleated erythrocytes in Blood by Automated counOrdered By: Vishal Agarwal on 10-27-2022 WBC corrected for nucl RBC Auto (Bld) [#/Vol] 4.5 10*3/uL 3.8-11.6 [facility] Lymphocytes Auto (Bld) [#/Vo l]Ordered By: Vishal Agarwal on 10-27-2022 Lymphocytes (Bld) [#/Vol] 0.5 10*3/uL 1.00-4.8 [facility] Lymphocytes/100 WBC Auto (Bl d)Ordered By: Vishal Agarwal on 10-27-2022 Lymphocytes/100 WBC (Bld) 10.8 % . [facility] MCH Auto (RBC) [Entitic mass ]Ordered By: Vishal Agarwal on 10-27-2022 MCH (RBC) [Entitic mass] 23.7 pg 24.7-34.3 [facility] MCHC Auto (RBC) [Mass/Vol]Or dered By: Vishal Agarwal on 10-27-2022 MCHC (RBC) [Mass/Vol] 31.2 g/dL 32.0-35.0 [facility] MCV Auto (RBC) [Entitic vol] Ordered By: Vishal Agarwal on 10-27-2022 MCV (RBC) [Entitic vol] 76.0 fL 80-100 [facility] Monocyte distribution width [Entitic volume] in Blood by AutomatedOrdered By: Vishal Agarwal on 10-27-2022 Monocyte distribution width Auto (Bld) [Entitic vol] 24.86 % 0.00-20.00 [facility] Comment on above: For adults in ED, MD W > 20.0 may be associated with a higher risk of sepsis during the first 12 hrs of hospital admission Monocytes Auto (Bld) [#/Vol] Ordered By: Vishal Agarwal on 10-27-2022 Monocytes (Bld) [#/Vol] 0.8 10*3/uL 0.0-0.8 [facility] Monocytes/100 WBC Auto (Bld) Ordered By: Vishal Agarwal on 10-27-2022 Monocytes/100 WBC (Bld) 16.8 % . [facility] Neutrophils Auto (Bld) [#/Vo l]Ordered By: Vishal Agarwal on 10-27-2022 Neutrophils (Bld) [#/Vol] 3.2 10*3/uL 1.8-7.7 [facility] Neutrophils/100 WBC Auto (Bl d)Ordered By: Vishal Agarwal on 10-27-2022 Neutrophils/100 WBC (Bld) 72.0 % . [facility] No Panel InformationOrdered By: Vishal Agarwal on 10-27-2022 Estimated GFR () > 60 mL/Min [facility] Comment on above: GFR estimated refere nce range: According to KDOQI guidelines, <60 ml/min/1.73m2 is sufficient to diagnose a patient with chronic kidney disease. Pharmacy Creatinine Clearance (Chem 75.11 [facility] Nucleated erythrocytes [Pres ence] in Blood by Automated countOrdered By: Vishal Agarwal on 10-27-2022 Nucleated RBC Auto Ql (Bld) 0.1 /100{WBC} 0-0.5 [facility] Platelet mean volume Auto (B ld) [Entitic vol]Ordered By: Vishal Agarwal on 10-27-2022 Platelet mean volume (Bld) [Entitic vol] 11.0 fL 6.3-10.7 [facility] Platelets Auto (Bld) [#/Vol] Ordered By: Vishal Agarwal on 10-27-2022 Platelets (Bld) [#/Vol] 148 10*3/uL 150-450 [facility] Protein [Mass/volume] in Ser um or PlasmaOrdered By: Vishal Agarwal on 10-27-2022 Protein [Mass/Vol] 7.6 g/dL 6.1-7.9 [facility] RBC Auto (Bld) [#/Vol]Ordere d By: Vishal Agarwal on 10-27-2022 RBC (Bld) [#/Vol] 5.10 10*6/uL 3.60-5.00 [facility] Serum or plasma alanine gannon otransferase measurement without P-5'-P (enzymatic activiOrdered By: Vishal Agarwal on 10-27-2022 ALT No additional P-5'-P [Catalytic activity/Vol] 18 U/L 10-60 [facility] Serum or plasma albumin/glob ulin mass ratioOrdered By: Vishal Agarwal on 10-27-2022 Albumin/Globulin [Mass ratio] 1.2 {ratio} [facility] Serum or plasma alkaline bull sphatase measurement (enzymatic activity/volume)Ordered By: Vishal Agarwal on 10-27-2022 ALP [Catalytic activity/Vol] 43 U/L 32-92 [facility] Serum or plasma anion gap de terminationOrdered By: Vishal Agarwal on 10-27-2022 Anion gap [Moles/Vol] 13.5 mmol/L 6.0-15.0 [facility] Serum or plasma aspartate am inotransferase measurement (enzymatic activity/volume)Ordered By: Vishal Agarwal on 10-27-2022 AST [Catalytic activity/Vol] 24 U/L 10-42 [facility] Serum or plasma calcium scotty urement (mass/volume)Ordered By: Vishal Agarwal on 10-27-2022 Calcium [Mass/Vol] 9.2 mg/dL 8.2-10.2 [facility] Serum or plasma chloride suzie surement (moles/volume)Ordered By: Vishal Agarwal on 10-27-2022 Chloride [Moles/Vol] 101 mmol/L 95-114 [facility] Serum or plasma glucose scotty urement (mass/volume)Ordered By: Vishal Agarwal on 10-27-2022 Glucose [Mass/Vol] 102 mg/dL 70-100 [facility] Comment on above: ADA recommended refe rence rangeRandom Glucose Reference Range is dependent on time and content of last meal. Glucose of more than 200 mg/dL in a nonstressed, ambulatory subject supports the diagnosis of Diabetes Mellitus. Serum or plasma potassium me asurement (moles/volume)Ordered By: Vishal Agarwal on 10-27-2022 Potassium [Moles/Vol] 3.7 mmol/L 3.5-5.1 [facility] Serum or plasma sodium measu rement (moles/volume)Ordered By: Vishal Agarwal on 10-27-2022 Sodium [Moles/Vol] 134 mmol/L 136-146 [facility] Serum or plasma total biliru bin measurement (mass/volume)Ordered By: Vishal Agarwal on 10-27-2022 Bilirubin [Mass/Vol] 0.8 mg/dL 0.3-1.2 [facility] Serum or plasma total carbon dioxide measurement (moles/volume)Ordered By: Vishal Agarwal on 10-27-2022 CO2 [Moles/Vol] 23.2 mmol/L 22.0-30.0 [facility] Serum or plasma urea nitroge n measurement (mass/volume)Ordered By: Vishal Agarwal on 10-27-2022 Urea nitrogen [Mass/Vol] 10 mg/dL 9-23 [facility] WBC Auto (Bld) [#/Vol]Ordere d By: Vishal Agarwal on 10-27-2022 WBC (Bld) [#/Vol] 4.5 10*3/uL 3.8-11.6 [facility] HBV surface Ab IA Ql (S)on 1 11-27-2021 HBV surface Ag Ql (S) Negative Negative [facility] HEP B CORE AB TOTALon 2021 HBV core Ab Ql (S) Negative Negative [facility] HEP B SURF AB QUALon 022 HBV surface Ab Ql (S) Positive Abnormal Negative [facility] HEP C AB IA W/CONF SCRNon HCV Ab Ql (S) Negative Negative [facility] MR Brain WO and W [...] Improvement: None. New Enhancing Lesions: None T2 [place] of Disease: Mild. Parenchymal Volume Loss: None. Other Significant Findings: None. MR CERVICAL: Counting reference: Craniocervical junction. Anatomic Variants: None. Alignment: Alignment is anatomic. Craniocervical Junction: Craniocervical junction is normal. Cord Findings: Patchy foci of hyperintensity are noted in the cervical cord on the T2, IR and axial gradient echo images compatible with the history of multiple sclerosis. Cord T2 Plaque [place]: Moderate New T2 Lesions: None Interval Cord [...] history of multiple sclerosis. Cord T2 Plaque [place]: Moderate New T2 Lesions: Greater than three [...] equal to 2mm). DIVISION OF RADIOLOGY Provider, [facility] - 07/23/2022 * * *Final Report* * * DATE OF EXAM: Jul 23 2022 10:56AM [facility] 0295 - MRI BRAIN WO/W IVCON [...] Improvement: None. New Enhancing Lesions: None T2 [place] of Disease: Mild. Parenchymal Volume Loss: None. Other Significant Findings: None. MR CERVICAL: Counting reference: Craniocervical junction. Anatomic Variants: None. Alignment: Alignment is anatomic. Craniocervical Junction: Craniocervical junction is normal. Cord Findings: Patchy foci of hyperintensity are noted in the cervical cord on the T2, IR and axial gradient echo images compatible with the history of multiple sclerosis. Cord T2 Plaque [place]: Moderate New T2 Lesions: None Interval Cord [...] history of multiple sclerosis. Cord T2 Plaque [place]: Moderate New T2 Lesions: Greater than three [...] and assume there are 5 lumbar-type vertebrae. 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[email or web address] Transcribe Date/Time: Jul 23 2022 11:16A Dictated by : ANIRUDH NUÑEZ MD This examination was interpreted and the report reviewed and electronically signed by: ANIRUDH NUÑEZ MD on Jul 23 2022 6:11PM [facility] MR Cervical spine WO and W [...] Improvement: None. New Enhancing Lesions: None T2 [place] of Disease: Mild. Parenchymal Volume Loss: None. Other Significant Findings: None. MR CERVICAL: Counting reference: Craniocervical junction. Anatomic Variants: None. Alignment: Alignment is anatomic. Craniocervical Junction: Craniocervical junction is normal. Cord Findings: Patchy foci of hyperintensity are noted in the cervical cord on the T2, IR and axial gradient echo images compatible with the history of multiple sclerosis. Cord T2 Plaque [place]: Moderate New T2 Lesions: None Interval Cord [...] history of multiple sclerosis. Cord T2 Plaque [place]: Moderate New T2 Lesions: Greater than three [...] equal to 2mm). DIVISION OF RADIOLOGY Provider, [facility] - 07/23/2022 * * *Final [...] Improvement: None. New Enhancing Lesions: None T2 [place] of Disease: Mild. Parenchymal Volume Loss: None. Other Significant Findings: None. MR CERVICAL: Counting reference: Craniocervical junction. Anatomic Variants: None. Alignment: Alignment is anatomic. Craniocervical Junction: Craniocervical junction is normal. Cord Findings: Patchy foci of hyperintensity are noted in the cervical cord on the T2, IR and axial gradient echo images compatible with the history of multiple sclerosis. Cord T2 Plaque [place]: Moderate New T2 Lesions: None Interval Cord [...] history of multiple sclerosis. Cord T2 Plaque [place]: Moderate New T2 Lesions: Greater than three [...] and assume there are 5 lumbar-type vertebrae. 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 MR Thoracic spine WO and Anshul [...] Improvement: None. New Enhancing Lesions: None T2 [place] of Disease: Mild. Parenchymal Volume Loss: None. Other Significant Findings: None. MR CERVICAL: Counting reference: Craniocervical junction. Anatomic Variants: None. Alignment: Alignment is anatomic. Craniocervical Junction: Craniocervical junction is normal. Cord Findings: Patchy foci of hyperintensity are noted in the cervical cord on the T2, IR and axial gradient echo images compatible with the history of multiple sclerosis. Cord T2 Plaque [place]: Moderate New T2 Lesions: None Interval Cord [...] history of multiple sclerosis. Cord T2 Plaque [place]: Moderate New T2 Lesions: Greater than three [...] equal to 2mm). DIVISION OF RADIOLOGY [facility] * * *Final Report* * [...] Improvement: None. New Enhancing Lesions: None T2 [place] of Disease: Mild. Parenchymal Volume Loss: None. Other Significant Findings: None. MR CERVICAL: Counting reference: Craniocervical junction. Anatomic Variants: None. Alignment: Alignment is anatomic. Craniocervical Junction: Craniocervical junction is normal. Cord Findings: Patchy foci of hyperintensity are noted in the cervical cord on the T2, IR and axial gradient echo images compatible with the history of multiple sclerosis. Cord T2 Plaque [place]: Moderate New T2 Lesions: None Interval Cord [...] history of multiple sclerosis. Cord T2 Plaque [place]: Moderate New T2 Lesions: Greater than three [...] and assume there are 5 lumbar-type vertebrae. 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 Date/Time: Jul 23 2022 11:16A Dictated by : ANIRUDH NUÑEZ MD This examination was interpreted and the report reviewed and electronically signed by: ANIRUDH NUÑEZ MD on Jul 23 2022 6:11PM [facility] DIVISION OF RADIOLOGY Radiology Study observation (narrative) [facility] No Panel InformationOrdered By: Ccf Provider on 07-23-2022 [facility] CBC W Auto Differential pane l (Bld)on 04-25-2022 Abs Immature Gran <0.03 <0.10 k/uL [facility] Basophils (Bld) [#/Vol] 0.03 10*3/uL <0.11 k/uL [facility] Basophils/100 WBC (Bld) 0.6 % [facility] Differential cell count method Nom (Bld) Auto [facility] Eosinophils (Bld) [#/Vol] 0.10 10*3/uL <0.46 k/uL [facility] Eosinophils/100 WBC (Bld) 2.0 % [facility] Erythrocyte distribution width (RBC) [Ratio] 13.9 % 11.5 - 15.0 % [facility] Hematocrit (Bld) [Volume fraction] 38.5 % 36.0 - 46.0 % [facility] Hemoglobin (Bld) [Mass/Vol] 12.0 g/dL 11.5 - 15.5 g/dL [facility] Immature Gran % 0.2 % [facility] Lymphocytes (Bld) [#/Vol] 1.54 10*3/uL 1.00 - 4.00 k/uL [facility] Lymphocytes/100 WBC (Bld) 30.2 % [facility] MCH (RBC) [Entitic mass] 25.4 pg Low 26.0 - 34.0 pg [facility] MCHC (RBC) [Mass/Vol] 31.2 g/dL 30.5 - 36.0 g/dL [facility] MCV (RBC) [Entitic vol] 81.4 fL 80.0 - 100.0 [facility]L [facility] Monocytes (Bld) [#/Vol] 0.66 10*3/uL <0.87 k/uL [facility] Monocytes/100 WBC (Bld) 12.9 % [facility] Neutrophils (Bld) [#/Vol] 2.76 10*3/uL 1.45 - 7.50 k/uL [facility] Neutrophils/100 WBC (Bld) 54.1 % [facility] Nucleated RBC (Bld) [#/Vol] 10*3/uL <0.01 k/uL [facility] Nucleated RBC/100 WBC (Bld) [Ratio] 0.0 /100 WBC [facility] Platelet mean volume (Bld) [Entitic vol] 13.5 fL High 9.0 - 12.7 fL [facility] Platelets (Bld) [#/Vol] 168 10*3/uL 150 - 400 k/uL [facility] RBC (Bld) [#/Vol] 4.73 10*6/uL 3.90 - 5.2 0 m/uL [facility] WBC (Bld) [#/Vol] 5.10 10*3/uL 3.70 - 11. 00 k/uL [facility] URINALYSIS, REFLEX MICROSCOP ICon 04-25-2022 Bilirubin Ql (U) Negative Negative [facility] Clarity (Unsp spec) Clear Clear [facility] Color (U) Light Yellow Yellow [facility] Glucose Test strip (U) [Mass/Vol] Negative Negative [facility] Hemoglobin Ql (U) Negative Negative [facility] Ketones Ql (U) Negative Negative [facility] Leukocyte esterase Test strip Ql (U) Negative Negative [facility] Nitrite Ql (U) Negative Negative [facility] pH (U) 6.0 [pH] 5.0 - 8.0 [facility] Protein (U) [Mass/Vol] Negative Negative [facility] Specific gravity (U) [Rel density] 1.021 1.005 - 1.030 [facility] Urobilinogen Ql (U) Negative Negative [facility] CNPNon 11-13-2021 CNPN Telephone (NEADFV) ----- CAROL ANN MARTINEZ ([id number]) 1985 F Date Time Provider Department 11/13/21 [...] (FLONASE) 50 mcg/actuation nasal spray Use 1 Freedom in each nostril once daily. - MAGNESIUM ORAL Take 1 tablet by mouth twice daily. - Awavojhz-Nx-Kmj-Fe-FA ( VITAMIN) tab Take 1 tablet by [...] Encounter Status:Closed by AUDIE GABRIEL on 11/13/21 [facility] Christiano 07-24-2021 CNPN Telephone (NEADFV) ----- CAROL ANN MARTINEZ F ([id number]) 1985 F Date Time Provider Department 07/24/21 NIDIA GARCIA NEADFV During your visit today, we recorded the following information about you: Hanna Page Carroll 07/24/2021 12:34 PM Signed Patient called stating she is scheduled for an Ocrevus infusion on August 15, but will be out of state in [place]. She would like to have the infusion done there at [facility]. Also,she has new insurance as of May and will need to get the Ocrevus approved through her new insurance ([employer]- ). For questions call patient at [phone] Alexandra Benjamin Blackman 07/24/2021 1:21 PM Signed Patient called back with a phone number of [phone] for [facility]. The phone # her [employer] is [phone]. Audie Gabriel RN 07/24/2021 1:51 PM Signed [...] (FLONASE) 50 mcg/actuation nasal spray Use 1 Freedom in each nostril once daily. - MAGNESIUM ORAL Take 1 tablet by mouth twice daily. - Zybrnxdk-Dl-Ygw-Fe-FA ( VITAMIN) tab Take 1 tablet by [...] Encounter Status:Closed by AUDIE GABRIEL on 07/24/21 [facility] Telephone Encounteron 2020 [facility] [employer] Authentication Interface Message Text Patient was identified by name and date of . Patient given message, patient denied additional questions. ----- Message from Sofy Pandya MD sent at 03/22/2021 12:34 PM EDT ----- Please notify neg HPV with ascus pap, OK to f/u in [address] Sofy Pandya Normal [facility] Telephone Encounteron 2020 [employer] Authentication Interface Message Text ----- Message from Sofy Pandya MD sent at 03/08/2021 2:28 PM EDT ----- Please notify ok Normal [facility] GC/CHLAMYDIA/TRICHOMONAS AMP LIFICATIONon 03-07-2021 GC/CHLAMYDIA/TRICHOMO BERTIN AMPLIFICATION CHLAMYDIA AMPLIFICATION: Negative GC AMPLIFICATION: Negative TRICHOMONAS AMPLIFICATION: Negative Normal Negative [facility] Comment on above: Order Comment: This test is performed using an automated nucleic acid amplification assay ([employer] Performed By: #### G CT #### [facility] Pathology [address] [place] [address] [place], [place] HEPATITIS C ANTIBODYon 03-07 HCV Non-Reactive Normal Nonreactive [facility] Comment on above: Performed By: #### H CV #### [facility] [address], [place], HIV1 HIV2 AGAB SCRNon 2020 HIV AG-AB SCREEN Non-Reactive Normal Non-Reactive [facility] Comment on above: Order Comment: HIV Information: ???[place] Rev. code 3701.243(E): This information has been [...] agab scrn #### [facility] [address], [place], HUMAN PAPILLOMA VIRUSon 02-09 HPV HIGH RISK Negative Normal Negative [facility] Comment on above: Order Comment: This test is performed using an automated nucleic acid amplification assay ([employer] [place], [place]). This assay detects RNA of HPV types 16,18,31,33,35,39,45,51,52,56,58,59,66 and 68 in cervical specimens. Result Comment: A ne gative result does not exclude the possibility of low levels of infection or sampling error. 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 No LMP recorded. Periods are regular [...] Abnormal Pap smear of cervix 2007- in [place]. had LEEP. no abn pap since * [...] Intravenous Push route. * Cholecalciferol 1.25 MG (28964 UT) TABS Take 50,000 Units by mouth once weekly. * Lfahakfb-Mhr-Bt-FA (Mynatal) CAPS Take by mouth. 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 Normal [facility] [employer] Authentication Interface Message Text Patient at risk [...] bandage applied. Site appears normal. Normal [facility] Filter Paper Leadon -24-20 20 Lead <2 Normal <5 [facility] Lead Interpretation Normal [facility] Comment on above: Result Comment: Occu pationally exposed adults lead >40 requires medical followup. This test was developed and its performance characteristics determined by [facility]. It has not been cleared or approved by the U.S. Food and Drug Administration. The FDA has determined that such clearance or approval is not necessary. This test is used for clinical purposes. It should not be regarded as investigational or for research. Type of Puncture Capillary Specimen Normal [facility] Vital Signs Date Time Vital Sign Value Performing Clinician Facility 10-04-2024 14:06-0500 Body mass index (BMI) [Ratio] 22.28 kg/m2 Jahaira GRIGGS Work Phone: [facility] 10-04-2024 14:06-0500 Body weight 63.56 kg Jahaira GRIGGS Work Phone: [facility] 10-04-2024 14:06-0500 Diastolic blood pressure 60 mm[Hg] Jahaira GRIGGS Work Phone: [facility] 10-04-2024 14:06-0500 Systolic blood pressure 100 mm[Hg] Jahaira GRIGGS Work Phone: [facility] 09-27-2024 15:20-0500 Body mass index (BMI) [Ratio] 22.44 kg/m2 Clarke Mayte DO Work Phone: [facility] 09-27-2024 15:20-0500 Body weight 64.01 kg Clarke Mayte DO Work Phone: [facility] 09-27-2024 15:20-0500 Diastolic blood pressure 68 mm[Hg] Clarke Mayte DO Work Phone: [facility] 09-27-2024 15:20-0500 Systolic blood pressure 108 mm[Hg] Clarke Mayte DO Work Phone: [facility] 09-22-2024 08:42-0500 Body height 167.6 cm Estella Dutton [facility] 09-22-2024 08:42-0500 Body mass index (BMI) [Ratio] 20.98 kg/m2 Estella Dutton [facility] 09-22-2024 08:42-0500 Body weight 58.97 kg Estella Dutton [facility] 09-21-2024 14:37-0500 Body mass index (BMI) [Ratio] 21.01 kg/m2 Clarke Mayte DO Work Phone: [facility] 09-21-2024 14:37-0500 Body weight 59.93 kg Clarke Mayte DO Work Phone: [facility] 09-21-2024 14:37-0500 Diastolic blood pressure 68 mm[Hg] Clarke Mayte DO Work Phone: [facility] 09-21-2024 14:37-0500 Systolic blood pressure 118 mm[Hg] Clarke Mayte DO Work Phone: [facility] 09-07-2024 14:28-0400 Body mass index (BMI) [Ratio] 22.02 kg/m2 Jahaira Torrington PA Work Phone: [facility] 09-07-2024 14:28-0400 Body weight 62.82 kg Jahaira Modesta PA Work Phone: [facility] 09-07-2024 14:28-0400 Diastolic blood pressure 72 mm[Hg] Jahaira Modesta PA Work Phone: [facility] 09-07-2024 14:28-0400 Systolic blood pressure 112 mm[Hg] Jahaira Modesta PA Work Phone: [facility] 08-26-2024 19:22-0400 Body mass index (BMI) [Ratio] 22.26 kg/m2 Aleyda Hemmer PA Work Phone: [facility] 08-26-2024 19:22-0400 Body temperature 98.01 [degF] Aleyda Hemmer PA Work Phone: [facility] 08-26-2024 19:22-0400 Body weight 63.5 kg Aleyda Hemmer PA Work Phone: [facility] 08-26-2024 19:22-0400 Diastolic blood pressure 70 mm[Hg] Aleyda Hemmer PA Work Phone: [facility] 08-26-2024 19:22-0400 Heart rate 102 /min Aleyda Hemmer PA Work Phone: [facility] 08-26-2024 19:22-0400 SaO2% (BldA) [Mass fraction] 98 % Aleyda Hemmer PA Work Phone: [facility] 08-26-2024 19:22-0400 Systolic blood pressure 122 mm[Hg] Aleyda GRIGGS Work Phone: [facility] 08-24-2024 10:30-0400 Body mass index (BMI) [Ratio] 21.96 kg/m2 Jahaira Byers PA Work Phone: [facility] 08-24-2024 10:30-0400 Body weight 62.65 kg Jahaira Byers PA Work Phone: [facility] 08-24-2024 10:30-0400 Diastolic blood pressure 70 mm[Hg] Jahaira Byers PA Work Phone: [facility] 08-24-2024 10:30-0400 Systolic blood pressure 120 mm[Hg] Jahaira Byers PA Work Phone: [facility] 08-17-2024 14:43-0400 Body height 168.9 cm Janice Escobar MD Work Phone: [facility] 08-17-2024 14:43-0400 Body mass index (BMI) [Ratio] 21.94 kg/m2 Janice Escobar MD Work Phone: [facility] 08-17-2024 14:43-0400 Body weight 62.6 kg Janice Escobar MD Work Phone: [facility] 08-17-2024 14:43-0400 Diastolic blood pressure 71 mm[Hg] Janice Escobar MD Work Phone: [facility] 08-17-2024 14:43-0400 Heart rate 93 /min Janice Escobar MD Work Phone: [facility] 08-17-2024 14:43-0400 Systolic blood pressure 105 mm[Hg] Janice Escobar MD Work Phone: [facility] 08-10-2024 10:06-0400 Body mass index (BMI) [Ratio] 21.91 kg/m2 Clarke Hu DO Work Phone: [facility] 08-10-2024 10:06-0400 Body weight 62.51 kg Clarke Mayte DO Work Phone: [facility] 08-10-2024 10:06-0400 Diastolic blood pressure 70 mm[Hg] Clarke Mayte DO Work Phone: [facility] 08-10-2024 10:06-0400 Systolic blood pressure 104 mm[Hg] Clarke Mayte DO Work Phone: [facility] 07-19-2024 12:03-0400 Body height 167.[address] MD Work Phone: [facility] 07-19-2024 12:03-0400 Body mass index (BMI) [Ratio] 21.88 kg/m2 Janice Lane MD Work Phone: [facility] 07-19-2024 12:03-0400 Body temperature 97.59 [degF] Janice Lane MD Work Phone: [facility] 07-19-2024 12:03-0400 Body weight 61.[address] MD Work Phone: [facility] 07-19-2024 12:03-0400 Diastolic blood pressure 67 mm[Hg] Janice Lane MD Work Phone: [facility] 07-19-2024 12:03-0400 Heart rate 86 /min Janice Lane MD Work Phone: [facility] 07-19-2024 12:03-0400 SaO2% (BldA) [Mass fraction] 99 % Janice Lane MD Work Phone: [facility] 07-19-2024 12:03-0400 Systolic blood pressure 107 mm[Hg] Janice Lane MD Work Phone: [facility] 03-04-2024 13:00-0400 Body height 168.[address] MD Work Phone: [facility] 03-04-2024 13:00-0400 Body mass index (BMI) [Ratio] 19.52 kg/m2 Janice Lane MD Work Phone: [facility] 03-04-2024 13:00-0400 Body temperature 98.1 [degF] Janice Lane MD Work Phone: [facility] 03-04-2024 13:00-0400 Body weight 55.[address] MD Work Phone: [facility] 03-04-2024 13:00-0400 Diastolic blood pressure 66 mm[Hg] Janice Lane MD Work Phone: [facility] 03-04-2024 13:00-0400 Heart rate 95 /min Janice Lane MD Work Phone: [facility] 03-04-2024 13:00-0400 SaO2% (BldA) [Mass fraction] 100 % Janice Lane MD Work Phone: [facility] 03-04-2024 13:00-0400 Systolic blood pressure 101 mm[Hg] Janice Lane MD Work Phone: [facility] 12-25-2023 10:54-0500 Body weight 56.8 kg Tor Hernandez APRN.SYSTEMS ADMINISTRATOR Work Phone: [facility] 12-25-2023 10:54-0500 Diastolic blood pressure 67 mm[Hg] Tor Hernandez APRN.SYSTEMS ADMINISTRATOR Work Phone: [facility] 12-25-2023 10:54-0500 Heart rate 87 /min Tor Hernandez APRN.SYSTEMS ADMINISTRATOR Work Phone: [facility] 12-25-2023 10:54-0500 Systolic blood pressure 95 mm[Hg] Tor Hernandez APRN.SYSTEMS ADMINISTRATOR Work Phone: [facility] 12-23-2023 13:34-0500 Body mass index [...] temperature 98.29 [degF] Chair Kylah Work Phone: [facility] 09-25-2023 13:25-0500 Diastolic blood pressure 72 mm[Hg] Chair [place] Work Phone: [facility] 09-25-2023 13:25-0500 Heart rate 69 /min Chair [place] Work Phone: [facility] 09-25-2023 13:25-0500 Respiratory rate 16 /min Chair [place] Work Phone: [facility] 09-25-2023 13:25-0500 SaO2% (BldA) [Mass fraction] 99 % Chair [place] Work Phone: [facility] 09-25-2023 13:25-0500 Systolic blood pressure 102 mm[Hg] Chair [place] Work Phone: [facility] 07-23-2023 10:36-0400 Body weight 56.7 kg Tor Hernandez APRN.SYSTEMS ADMINISTRATOR Work Phone: [facility] 07-23-2023 10:36-0400 Diastolic blood pressure 62 mm[Hg] Tor Hernandez PROFESSOR OF NURSING.SYSTEMS ADMINISTRATOR Work Phone: [facility] 07-23-2023 10:36-0400 Heart rate 69 /min Tor Hernandez PROFESSOR OF NURSING.SYSTEMS ADMINISTRATOR Work Phone: [facility] 07-23-2023 10:36-0400 Systolic blood pressure 94 mm[Hg] Tor Hernandez PROFESSOR OF NURSING.SYSTEMS ADMINISTRATOR Work Phone: [facility] 02-12-2023 11:27-0400 Body height 167.[address] MD Work Phone: [facility] 02-12-2023 11:27-0400 Body weight 55.[address] MD Work Phone: [facility] 02-12-2023 11:27-0400 Diastolic blood pressure 67 mm[Hg] Janice Lane MD Work Phone: [facility] 02-12-2023 11:27-0400 Heart rate 60 /min Janice Lane MD Work Phone: [facility] 02-12-2023 11:27-0400 SaO2% (BldA) [Mass fraction] 98 % Janice Lane MD Work Phone: [facility] 02-12-2023 11:27-0400 Systolic blood pressure 107 mm[Hg] Janice Lane MD Work Phone: [facility] 01-17-2023 10:49-0500 Body weight 56.52 kg Nesha Santana MD Work Phone: [facility] 01-17-2023 10:49-0500 Diastolic blood pressure 73 mm[Hg] Nesha Santana MD Work Phone: [facility] 01-17-2023 10:49-0500 Heart rate 113 /min Nesha Santana MD Work Phone: [facility] 01-17-2023 10:49-0500 Systolic blood pressure 111 mm[Hg] Nesha Santana MD Work Phone: [facility] 10-28-2022 00:35-0500 Body temperature 100.1 [degF] MD Janice Lane Work Phone: [facility] 10-28-2022 00:35-0500 Diastolic blood pressure 73 mm[Hg] MD Janice Lane Work Phone: [facility] 10-28-2022 00:35-0500 Heart rate 100 /min MD Janice Lane Work Phone: [facility] 10-28-2022 00:35-0500 SaO2% (BldA) [Mass fraction] 98 % MD Janice Lane Work Phone: [facility] 10-28-2022 00:35-0500 Systolic blood pressure 112 mm[Hg] MD Janice Lane Work Phone: [facility] 10-27-2022 23:30-0500 Respiratory rate 16 /min MD Janice Lane Work Phone: [facility] 10-27-2022 21:08-0500 Body height 167.[address] Work Phone: [facility] 10-27-2022 21:08-0500 Body weight 62.[address] Work Phone: [facility] 09-27-2022 13:45-0500 Body temperature 98.8 [degF] Chair Kylah Work Phone: [facility] 09-27-2022 13:45-0500 Diastolic blood pressure 65 mm[Hg] Chair [place] Work Phone: [facility] 09-27-2022 13:45-0500 Heart rate 101 /min Chair [place] Work Phone: [facility] 09-27-2022 13:45-0500 Respiratory rate 16 /min Chair Kylah Work Phone: [facility] 09-27-2022 13:45-0500 SaO2% (BldA) [Mass fraction] 99 % Chair [place] Work Phone: [facility] 09-27-2022 13:45-0500 Systolic blood pressure 101 mm[Hg] Chair Morales Work Phone: [facility] 08-08-2022 07:54-0400 Body weight 61.42 kg Nesha Santana MD Work Phone: [facility] 08-08-2022 07:54-0400 Diastolic blood pressure 65 mm[Hg] Nesha Santana MD Work Phone: [facility] 08-08-2022 07:54-0400 Heart rate 82 /min Nesha Santana MD Work Phone: [facility] 08-08-2022 07:54-0400 Systolic blood pressure 106 mm[Hg] Nesha Santana MD Work Phone: [facility] 05-30-2022 14:00-0400 Diastolic blood pressure 55 mm[Hg] Deuce Osvaldoa OTR/L Work Phone: [facility] 05-30-2022 14:00-0400 Systolic blood pressure 96 mm[Hg] Deuce Nicka OTR/L Work Phone: [facility] 04-25-2022 09:09-0400 Body height 168.9 cm Marshall Hanley MD, PhD Work Phone: [facility] 04-25-2022 09:09-0400 Body weight 62.6 kg Marshall Hanley MD, PhD Work Phone: [facility] 04-25-2022 09:09-0400 Diastolic blood pressure 62 mm[Hg] Marshall Hanley MD, PhD Work Phone: [facility] 04-25-2022 09:09-0400 Heart rate 106 /min Marshall Hanley MD, PhD Work Phone: [facility] 04-25-2022 09:09-0400 Systolic blood pressure 109 mm[Hg] Marshall Hanley MD, PhD Work Phone: [facility] 04-02-2022 17:47-0400 Diastolic blood pressure 75 mm[Hg] DO Vishal Tupa Work Phone: [facility] 04-02-2022 17:47-0400 Heart rate 90 /min DO Vishal Tupa Work Phone: [facility] 04-02-2022 17:47-0400 Respiratory rate 18 /min DO Vishal Tupa Work Phone: [facility] 04-02-2022 17:47-0400 SaO2% (BldA) [Mass fraction] 99 % DO Vishal Tupa Work Phone: [facility] 04-02-2022 17:47-0400 Systolic blood pressure 113 mm[Hg] DO Vishal Tupa Work Phone: [facility] 04-02-2022 15:46-0400 Body height 168.91 cm DO Vishal Tupa Work Phone: [facility] 04-02-2022 15:46-0400 Body mass index (BMI) [Ratio] 21.7 kg/m2 DO Vishal Tupa Work Phone: [facility] 04-02-2022 15:46-0400 Body temperature 98.5 [degF] DO Vishal Tupa Work Phone: [facility] 04-02-2022 15:46-0400 Body weight 62.14 kg DO Vishal Tupa Work Phone: [facility] 03-26-2022 12:45-0400 Body temperature 98.8 [degF] Neur Infusion Work Phone: [facility] 03-26-2022 12:45-0400 Diastolic blood pressure 67 mm[Hg] Neur Infusion Work Phone: [facility] 03-26-2022 12:45-0400 Heart rate 95 /min Neur Infusion Work Phone: [facility] 03-26-2022 12:45-0400 Systolic blood pressure 100 mm[Hg] Neur Infusion Work Phone: [facility] 01-05-2020 11:52-0500 BMI (Body Mass Index) 20.71 kg/m2 Karri Jones CQ-[place] Work Phone: 01-05-2020 11:52-0500 Body weight 59.08 kg Karri Jones TY-Iwusvlhuwn-Tu [facility] 0 Work Phone: 01-05-2020 11:52-0500 BP Diastolic 74 mm[Hg] Karri Jones LI-Ivetepvtjo-Zh [facility] 0 Work Phone: Comment on above: Location: RUE; Position: Sitting 01-05-2020 11:52-0500 BP Systolic 108 mm[Hg] Karri Jones UG-Okywrakrbt-Wq [facility] 0 Work Phone: Comment on above: Location: RUE; Position: Sitting 01-05-2020 11:52-0500 BSA (Body Surface Area) 1.68 m2 Karri Jones XG-[place]ppcv[place] 0 Work Phone: 01-05-2020 11:52-0500 Height 168.91 cm Karri Jones NL-Uorucppwwk-Eh [facility] 0 Work Phone: 01-05-2020 11:52-0500 Pulse (Heart Rate) 89 /min Karri Jones MG-Cardiology -[facility] 0 Work Phone: 01-05-2020 11:52-0500 Pulse Oximetry 99 % Karri Jones IC-Cwjfomsfdj-Ac [facility] 0 Work Phone: 01-05-2020 11:52-0500 Respiratory Rate 16 /min Karri Jones RD-Fkpawfjlfu-P [facility] 0 Work Phone: 05-05-2019 08:59-0400 BP Diastolic 73 mm[Hg] STAFF [facility] 05-05-2019 08:59-0400 BP Systolic 103 mm[Hg] STAFF [facility] 05-05-2019 08:59-0400 Pulse (Heart Rate) 92 /min STAFF [facility] 04-09-2019 12:20-0400 Body weight 71.7 kg STAFF [facility] 04-09-2019 12:20-0400 Height 170.21 cm STAFF [facility] 04-09-2019 11:00-0400 Pulse Oximetry 98 % STAFF [facility] 04-09-2019 11:00-0400 Respiratory Rate 20 /min STAFF [facility] Encounters Encounter Date Encounter Type Care Provider Facility Start: 10-11-2024 End: 10-11-2024 ambulatory Estrella Sorto PT, DPT Work Phone: [facility] Comment on above: Right hip pain (Prim viji Dx) Start: 10-05-2024 End: 10-05-2024 ambulatory [facility] Start: 10-05-2024 End: 10-05-2024 Subsequent hospital visit by physician Zana Hawk Obgynimg Ultrasound 3 Babar [facility] [place] Comment on above: Encounter for superv ision of normal , unspecified, unspecified trimester; Multiple sclerosis 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 trimester (Multi) Start: 10-05-2024 End: 10-05-2024 ambulatory CLARKE CHEN [facility] Start: 10-04-2024 End: 10-04-2024 Bamboo flowsheet Jahaira GRIGGS Work Phone: [facility] Start: 10-04-2024 End: 10-04-2024 Bamboo flowsheet Jahaira GRIGGS Work Phone: [facility] Start: 10-04-2024 End: 10-04-2024 ambulatory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 encounter procedure [facility] Start: 10-11-2024 End: 10-11-2024 ambulatory 10/11/2024 10:45 AM EST OT/PT/Speech Visit [facility] [address] [place] [address] Estrella Sorto, PT, DPT [address] [facility] [place] [address] 3 of 4 visits approved [facility] Comment on above: 3 of 4 visits approv ed Start: 10-05-2024 End: 10-05-2024 Patient encounter procedure 10/05/2024 2:30 PM EST [facility]ointment [facility] [address] [place] [address] [facility] Start: 10-04-2024 End: 10-04-2025 Strep B DNA probe, amplification Strep B DNA probe, amplification Lab Routine Third trimester Expected: 10/04/2024 (Approximate), Expires: 10/04/2025 [facility] Work Phone: Comment on above: Expected: 10/04/2024 (Approximate), Expires: 10/04/2025 Start: 10-04-2024 End: 10-04-2024 Patient encounter procedure 10/04/2024 1:40 PM EST Routine [facility] [address] [place] [place] [address] Jahaira Byers PA [address] [facility] [place] [address] [facility] Start: 10-04-2024 End: 10-04-2024 Professional / ancillary services management 10/04/2024 1:00 PM EST Ancillary Procedure [facility] [address] [place] [address] [facility] Start: 10-04-2024 End: 10-04-2024 ambulatory 10/04/2024 9:15 AM EST OT/PT/Speech Visit [facility] [address] [facility] [place] [address] Estrella Sorto, PT, DPT [address] [facility] [address] [place], [place] [phone] 2 of 4 visits approved [facility] Comment on above: 2 of 4 visits approv ed Start: 10-04-2024 End: 10-04-2024 Patient encounter procedure 10/04/2024 9:15 AM EST OT/PT/Speech Visit [facility] [address] [facility] [place] [address] Estrella Sorto, PT, DPT [address] [facility] [place] [address] hip pain and ms consult missed 08/23/24 [facility] Comment on above: hip pain and ms cons ult missed 08/23/24 Start: 09-27-2024 End: 09-27-2024 Patient encounter procedure 09/27/2024 2:30 PM EST Routine [facility] [address] [place] [place] [address] Clarke Hu DO [address] [facility] [place] [address] Arrived [facility] Comment on above: Arrived Start: 09-22-2024 End: 09-22-2024 Nutrition therapy 09/22/2024 8:45 AM EST [facility] [address] [place] [address] Protein shakes covered with my ins & best flavor. [facility] Therapy Comment on above: Protein shakes cover ed with my ins & best flavor. Start: 09-21-2024 End: 09-21-2025 US biophysical profile w non stress test US biophysical profile w non stress test Imaging Routine MS (multiple sclerosis) (CMS/HCC) Short cervix affecting Expected: 09/21/2024 (Approximate), Expires: 09/21/2025 [facility] Comment on above: Expected: 09/21/2024 (Approximate), Expires: 09/21/2025 Start: 09-21-2024 End: 09-21-2025 US for US OB SCAN FOR GROWTH Imaging Routine MS (multiple sclerosis) (CMS/HCC) Short cervix affecting Expected: 09/21/2024 (Approximate), Expires: 09/21/2025 [facility] Work Phone: Comment on above: Expected: 09/21/2024 (Approximate), Expires: 09/21/2025 Start: 09-21-2024 End: 09-21-2024 ambulatory 09/21/2024 9:45 AM EST OT/PT/Speech Visit [facility] [address] [place] [address] Estrella Sorto, PT, DPT [address] [place] [address] 1 of 4 visits approved [facility] Comment on above: 1 of 4 visits approv ed Start: 09-21-2024 End: 09-21-2024 Patient encounter procedure 09/21/2024 9:45 AM EST OT/PT/Speech Visit [facility] [address] [place] [address] Estrella Sorto, PT, DPT [address] [place] [address] hip pain and ms consult missed 08/23/24 [facility] Comment on above: hip pain and ms cons ult missed 08/23/24 Start: 09-20-2024 End: 09-20-2024 Specialty Pharmacy 09/20/2024 11:00 AM EST Specialty Pharmacy [facility] [address] [place], [place] [id number] [address] Pharmacist, [facility] [address] [place] [phone] refill - glatiramer -- [facility] Comment on above: refill - glatiramer -- Start: 09-14-2024 End: 09-14-2024 Patient encounter procedure 09/14/2024 2:45 PM EST Appointment [facility] [address] [facility] [place] [address] [facility] Start: 09-07-2024 End: 09-07-2025 US Pelvis transvaginal US OB transvaginal Imaging Routine Encounter for screening for cervical length Expected: 09/07/2024 (Approximate), Expires: 09/07/2025 [facility] Work Phone: Comment on above: Expected: 09/07/2024 (Approximate), Expires: 09/07/2025 Start: 09-07-2024 End: 09-07-2024 Patient encounter procedure [facility] Comment on above: Arrived Start: 09-03-2024 End: 09-03-2024 Patient encounter procedure 09/03/2024 8:45 AM EDT OT/PT/Speech Visit [facility] [address] [place] [address] Estrella Sorto, PT, DPT [address] [facility] [place] [address] hip pain and ms consult missed 08/23/24 [facility] Comment on above: hip pain and ms cons ult missed 08/23/24 Start: 09-01-2024 RSV High Risk: (Elde rly (60+) or Population) (1 - Risk 1-dose series) RSV High Risk: (Elderly (60+) or Population) (1 - Risk 1-dose series) [facility] Start: 09-01-2024 RSV Vaccine (1 - Ris k 1-dose series) RSV Vaccine (1 - Risk 1-dose series) [facility] Start: 08-30-2024 End: 08-30-2024 Patient encounter procedure 08/30/2024 3:00 PM EDT Office Visit [facility] [address] [place] [address] Art Swenson S, OD [address] [place] [address] Huge eye buggar.Eyes get tired.Eye lashes fallout Ophthalmology Comment on above: Huge eye buggar.Eyes get tired.Eye lashes fallout Start: 08-24-2024 End: 08-24-2024 Patient encounter procedure 08/24/2024 9:40 AM EDT Routine [facility] [address] [place] [place] [address] Jahaira Byers PA [address] [facility] [address] [place], [place] [phone] [facility] Start: 08-24-2024 End: 08-24-2024 Professional / ancillary services management 08/24/2024 9:00 AM EDT Ancillary Procedure [facility] [address] [place] [place] [id number] [facility] Start: 08-23-2024 End: 08-23-2024 ambulatory 08/23/2024 11:30 AM EDT OT/PT/Speech Visit [facility] [address] [place], [place] [phone] Renetta Bhagat PT [address] [facility] [address] [facility] [address] [place], [place] [phone] Right hip pain [M25.551] [facility] Comment on above: Right hip pain [M25. 551] Start: 08-16-2024 End: 08-16-2024 Specialty Pharmacy 08/16/2024 11:00 AM EDT Specialty Pharmacy [facility] [address] [place] [address] Pharmacist, [facility] [address] [place] [phone] refill - glatiramer -- [facility] Comment on above: refill - glatiramer -- Start: 07-20-2024 End: 07-20-2024 Follow-up encounter 07/20/2024 11:00 AM EDT [facility] [address] [place] [address] Germania Wilkinson MD [address] [place] [address] Follow up Neurology Comment on above: Follow up Start: 07-19-2024 End: 10-18-2024 CBC W Auto Differential panel - Blood [facility] Comment on above: Expected: 07/19/2024 , Expires: 10/18/2024 Start: 07-19-2024 End: 10-18-2024 Comprehensive metabolic 2000 panel - Serum or Plasma [facility] Comment on above: Expected: 07/19/2024 , Expires: 10/18/2024 Start: 07-19-2024 End: 10-18-2024 Ferritin [Mass/volume] in Serum or Plasma [facility] Comment on above: Expected: 07/19/2024 , Expires: 10/18/2024 Start: 07-19-2024 End: 07-19-2024 Patient encounter procedure [facility] Comment on above: 1 year physical refill - glatiramer -- Start: 07-11-2024 Covid-19 Vaccine ( season) Covid-19 Vaccine ( season) [facility] Start: 07-11-2024 Covid-19 Vaccine ( season) Covid-19 Vaccine ( season) [facility] Start: 07-11-2024 Influenza vaccination Influenza Vacc ine (#1) [facility] Start: 07-01-2024 End: 07-01-[address] [facility] Comment on above: Return in about 6 mo nths (around 06/24/2024). Snoring [R06.83] Start: 06-25-2024 End: 06-25-2024 Specialty Pharmacy 06/25/2024 11:00 AM EDT Specialty Pharmacy [facility] [address] [place], [place] [id number] [address] Pharmacist, [facility] [address] [place] [address] [place] [address] refill - glatiramer -- lvm 06/22 [facility] Comment on above: refill - glatiramer -- lvm 06/22 Start: 06-23-2024 End: 06-23-2024 Patient encounter procedure 06/23/2024 8:00 AM EDT Office Visit Neurology [address] [place] [address] ACTIGRAPHY Neurology Comment on above: ACTIGRAPHY Start: 06-22-2024 End: 06-22-2024 Specialty Pharmacy 06/22/2024 11:00 AM EDT Specialty Pharmacy [facility] [address] [place] [address] Pharmacist, [facility] [address] [place] [address] [place] [address] refill - glatiramer -- [facility] Comment on above: refill - glatiramer -- Start: 06-08-2024 End: 06-08-2024 ambulatory 06/08/2024 1:00 PM EDT [facility] Neurology [address] [place] [address] Germania Wilkinson MD [address] [place] [address] [facility] Comment on above: INSOMNIA Start: 06-08-2024 End: 06-08-2024 Patient encounter procedure 06/08/2024 1:00 PM EDT Office Visit Neurology [address] [place] [address] Germania Wilkinson MD [address] [place] [address] [facility] Comment on above: INSOMNIA Start: 05-25-2024 End: 05-25-2024 Patient encounter procedure 05/25/2024 8:00 AM EDT Office Visit Neurology [address] [place] [address] ACTIGRAPHY Neurology Comment on above: ACTIGRAPHY Start: 05-24-2024 End: 05-24-2024 Specialty Pharmacy 05/24/2024 11:00 AM EDT Specialty Pharmacy [facility] [address] [place] [phone] Pharmacist, [facility] [address] [place] [address] [place] [address] refill - glatiramer -- [facility] Comment on above: refill - glatiramer -- Start: 05-19-2024 End: 05-19-2024 Patient encounter procedure 05/19/2024 10:00 AM EDT Office Visit [facility] [address] [place] [place] [address] Clarke Hu DO [address] [facility] [place] [address] [facility] Start: 04-30-2024 End: 04-30-2024 Specialty Pharmacy 04/30/2024 11:00 AM EDT Specialty Pharmacy [id number] [place] [address] Pharmacist, Specialty[address] [place] [place] [address] refill--glatiramer [facility] Comment on above: refill--glatiramer Start: 04-21-2024 End: 04-21-2024 Patient encounter procedure 04/21/2024 8:00 AM EDT Office Visit Neurology [address] [place] [address] ACTIGRAPHY Neurology Comment on above: ACTIGRAPHY Start: 03-30-2024 End: 03-30-2024 ambulatory 03/30/2024 1:45 PM EDT [place] [id number] Tor Hernandez APRN.SYSTEMS ADMINISTRATOR [address] [place] [address] What medicine to take during or off of [facility] Comment on above: What medicine to raúl e during or off of Start: 03-26-2024 End: 03-26-2024 ambulatory 03/26/2024 9:40 AM EDT [facility] Hematology/Oncology [address] [place] [address] Kylah, Chair [address] [place] [address] [place] [address] [facility] Comment on above: [facility] Start: 03-22-2024 End: 03-22-2024 ambulatory 03/22/2024 2:30 PM EDT [facility] Neurology [address] [place] [address] Ayan Marie APRN.SYSTEMS ADMINISTRATOR [address] [place] [address] F/U Neurology Comment on above: F/U Start: 03-08-2024 End: 03-08-2024 Patient encounter procedure 03/08/2024 8:00 AM EDT Office Visit Neurology [address] [place] [address] ACTIGRAPHY Neurology Comment on above: ACTIGRAPHY Start: 03-07-2024 Screening for malign ant neoplasm of cervix [facility] Start: 03-04-2024 End: 06-03-2024 JOSSELIN BY IFA WITH REFLEX [facility] Comment on above: Expected: 03/04/2024 , Expires: 06/03/2024 Start: 03-04-2024 End: 06-03-2024 C reactive protein [Mass/volume] in Serum or Plasma [facility] Comment on above: Expected: 03/04/2024 , Expires: 06/03/2024 Start: 03-04-2024 End: 06-03-2024 Ferritin [Mass/volume] in Serum or Plasma [facility] Comment on above: Expected: 03/04/2024 , Expires: 06/03/2024 Start: 03-04-2024 End: 06-03-2024 Iron and Iron binding capacity panel - Serum or Plasma [facility] Comment on above: Expected: 03/04/2024 , Expires: 06/03/2024 Start: 03-04-2024 End: 06-03-2024 Rheumatoid factor [Units/volume] in Serum or Plasma [facility] Comment on above: Expected: 03/04/2024 , Expires: 06/03/2024 Start: 03-04-2024 End: 06-03-2024 Urate [Mass/volume] in Serum or Plasma [facility] Comment on above: Expected: 03/04/2024 , Expires: 06/03/2024 Start: 02-24-2024 [facility] Start: 12-11-2023 End: 08-21-2024 Mri brain brain stem w/o w/contrast material MRI BRAIN WO/W IVCON Radiology Routine Multiple sclerosis (HCC) Expected: 12/11/2023 (Approximate), Expires: 08/21/2024 [facility] Work Phone: Comment on above: Expected: 12/11/2023 (Approximate), Expires: 08/21/2024 Start: 11-10-2023 Behavioral Health Screening Behavioral Health Screening [facility] Start: 11-10-2023 Depression Assessment Depression Ass essment [facility] Start: 10-25-2023 End: 01-24-2024 CBC W Auto Differential panel - Blood CBC + DIFF Lab Routine Other drug-induced neutropenia (HCC) Expected: 10/25/2023 (Approximate), Expires: 01/24/2024 [facility] Work Phone: Comment on above: Expected: 10/25/2023 (Approximate), Expires: 01/24/2024 Start: 09-25-2023 End: 12-25-2023 CD19 ABSOLUTE COUNT [facility] Work Phone: Comment on above: Expected: 09/25/2023 , Expires: 12/25/2023 Start: 09-23-2023 End: 12-23-2023 Choriogonadotropin.beta subunit [Units/volume] in Serum or Plasma HCG QUANTITATIVE Lab Routine Multiple sclerosis ([facility]) Expected: 09/23/2023, Expires: 12/23/2023 [facility] Work Phone: Comment on above: Expected: 09/23/2023 , Expires: 12/23/2023 Start: 09-23-2023 End: 12-23-2023 IgG [Mass/volume] in Serum or Plasma IGG Lab Routine Multiple sclerosis ([facility]) Expected: 09/23/2023, Expires: 12/23/2023 [facility] Work Phone: Comment on above: Expected: 09/23/2023 , Expires: 12/23/2023 Start: 09-23-2023 End: 12-23-2023 IgM [Mass/volume] in Serum or Plasma IGM Lab Routine Multiple sclerosis (HCC) Expected: 09/23/2023, Expires: 12/23/2023 [facility] Work Phone: Comment on above: Expected: 09/23/2023 , Expires: 12/23/2023 Start: 07-11-2023 Covid-19 Vaccine () Covid-19 Vaccine () [facility] Start: 07-11-2023 Influenza vaccination C [facility] Start: 02-12-2023 End: 04-14-2023 CBC W Auto Differential panel - Blood [facility] Work Phone: Comment on above: Expected: 02/12/2023 , Expires: 04/14/2023 Start: 02-12-2023 End: 04-14-2023 Ferritin [Mass/volume] in Serum or Plasma [facility] Work Phone: Comment on above: Expected: 02/12/2023 , Expires: 04/14/2023 Start: 02-12-2023 End: 02-26-2023 Influenza virus A and B RNA and SARS-CoV-2 (COVID-19) N gene panel - Respiratory specimen by DIERDRE with probe detection [facility] Work Phone: Comment on above: Expected: 02/12/2023 , Expires: 02/26/2023 Start: 02-12-2023 End: 04-14-2023 Iron and Iron binding capacity panel - Serum or Plasma [facility] Work Phone: Comment on above: Expected: 02/12/2023 , Expires: 04/14/2023 Start: 02-12-2023 End: 02-13-2024 PELVIC US WHI PELVIC US WHI Anc Imaging Routine Vaginal bleeding Expected: 02/12/2023, Expires: 02/13/2024 [facility] Work Phone: Comment on above: Expected: 02/12/2023 , Expires: 02/13/2024 Start: 02-05-2023 End: 12-07-2023 Mri brain brain stem w/o w/contrast material MRI BRAIN WO/W IVCON Radiology Routine Multiple sclerosis (HCC) Expected: 02/05/2023 (Approximate), Expires: 12/07/2023 [facility] Work Phone: Comment on above: Expected: 02/05/2023 (Approximate), Expires: 12/07/2023 Start: 02-05-2023 End: 12-07-2023 Mri spinal canal cervical w/o & w/contr matrl MRI CERVICAL SPINE WO/W IVCON Radiology Routine Multiple sclerosis (HCC) Expected: 02/05/2023 (Approximate), Expires: 12/07/2023 [facility] Work Phone: Comment on above: Expected: 02/05/2023 (Approximate), Expires: 12/07/2023 Start: 01-17-2023 End: 03-19-2023 25-hydroxyvitamin D3 [Mass/volume] in Serum or Plasma [facility] Work Phone: Comment on above: Expected: 01/17/2023 , Expires: 03/19/2023 Start: 01-17-2023 End: 03-19-2023 Cobalamin (Vitamin B12) [Mass/volume] in Serum or Plasma [facility] Work Phone: Comment on above: Expected: 01/17/2023 , Expires: 03/19/2023 Start: 01-17-2023 End: 03-19-2023 IgG [Mass/volume] in Serum or Plasma [facility] Work Phone: Comment on above: Expected: 01/17/2023 , Expires: 03/19/2023 Start: 01-17-2023 End: 03-19-2023 IgM [Mass/volume] in Serum or Plasma [facility] Work Phone: Comment on above: Expected: 01/17/2023 , Expires: 03/19/2023 Start: 01-17-2023 End: 05-10-2023 Thyrotropin [Units/volume] in Serum or Plasma [facility] Work Phone: Comment on above: Expected: 01/17/2023 , Expires: 03/19/2023 Start: 11-10-2022 DEPRESSION ASSESSMENT DEPRESSION ASS ESSMENT [facility] Start: 10-27-2022 Plain chest X-ray XR chest 1V portab le [facility] Start: 10-27-2022 XR Chest Single view [facility] Start: 07-11-2022 Influenza vaccination C [facility] Start: 04-25-2022 End: 06-25-2022 Bacteria identified in Urine by Culture [facility] Work Phone: Comment on above: Expected: 04/25/2022 , Expires: 06/25/2022 Start: 04-24-2022 End: 06-24-2022 25-hydroxyvitamin D3 [Mass/volume] in Serum or Plasma VITAMIN D 25 HYDROXY Lab Routine Vitamin D deficiency Expected: 04/24/2022, Expires: 06/24/2022 [facility] Work Phone: Comment on above: Expected: 04/24/2022 , Expires: 06/24/2022 Start: 04-24-2022 End: 06-24-2022 Comprehensive metabolic 2000 panel - Serum or Plasma COMP METABOLIC PANEL Lab Routine Multiple sclerosis ([facility]) Expected: 04/24/2022, Expires: 06/24/2022 [facility] Work Phone: Comment on above: Expected: 04/24/2022 , Expires: 06/24/2022 Start: 04-24-2022 End: 06-24-2022 IgG [Mass/volume] in Serum or Plasma IGG Lab Routine Multiple sclerosis ([facility]) Expected: 04/24/2022, Expires: 06/24/2022 [facility] Work Phone: Comment on above: Expected: 04/24/2022 , Expires: 06/24/2022 Start: 04-24-2022 End: 06-24-2022 IgM [Mass/volume] in Serum or Plasma IGM Lab Routine Multiple sclerosis ([facility]) Expected: 04/24/2022, Expires: 06/24/2022 [facility] Work Phone: Comment on above: Expected: 04/24/2022 , Expires: 06/24/2022 Start: 04-24-2022 End: 06-24-2022 VARICELLA ZOSTER IGG VARICELLA ZOSTER IGG Lab Routine Multiple sclerosis (HCC) Expected: 04/24/2022, Expires: 06/24/2022 [facility] Work Phone: Comment on above: Expected: 04/24/2022 , Expires: 06/24/2022 Start: 02-08-2022 Adult depression screening assessment DEPRESSION SCREENING [facility] Start: 11-10-2021 DEPRESSION ASSESSMENT DEPRESSION ASS ESSMENT [facility] Start: 01-05-2020 Echocardiography Echocardiogram DEONDRE arabner-Faizan amaya [address] Work Phone: Start: 2015 HPV TESTING HPV TESTING [facility] Start: 2015 Screening for malign ant neoplasm of cervix HPV Testing [facility] Start: 2006 Screening for malign ant neoplasm of cervix HPV/Cotest [facility] Start: 2004 Hepatitis B Vaccines (1 of 3 - 19+ 3-dose series) Hepatitis B Vaccines (1 of 3 - 19+ 3-dose series) [facility] Start: 2003 Anxiety Screening Anxiety Screening [facility] Start: 2003 Depression Screening Depression Scre ening [facility] Start: 1998 Varicella vaccination Varicell a Vaccines (1 of 2 - 13+ 2-dose series) [facility] Start: 1990 COVID-19 VACCINE (#1) COVID-19 VACCI NE (#1) [facility] Start: 1990 COVID-19 VACCINE (1) COVID-19 VACCIN E (1) [facility] Start: 1986 MMR Vaccines (1 of 1 - Standard series) MMR Vaccines (1 of 1 - Standard series) [facility] Start: 02-01-1986 COVID-19 VACCINE (#1) COVID-19 VACCI NE (#1) [facility] Start: 1985 Annual wellness visit U [facility] Start: 1985 HEPATITIS B (1 of 3 - 3-dose series) HEPATITIS B (1 of 3 - 3-dose series) [facility] Start: 1985 Lipid panel Lipid Panel [facility] Start: 1985 Medicare Annual Well ness Visit Medicare Annual Wellness Visit (AWV) [facility] 25-hydroxyvitamin D3 [Mass/volume] in Serum or Plasma VITAMIN D 25 HYDROXY Lab Routine Vitamin D deficiency 04/25/2022 11:12 AM EDT [facility] Work Phone: Bacteria identified in Genital specimen by Aerobe culture [facility] Work Phone: Comprehensive metabo lic 2000 panel - Serum or Plasma COMP METABOLIC PANEL Lab Routine Multiple sclerosis ([facility]) 04/25/2022 11:12 AM EDT [facility] Work Phone: ECG COMPLETE ECG COMPLETE ECG Routine Vasovagal syncope Ordered: 07/19/2024 [facility] Work Phone: Comment on above: Ordered: 07/19/2024 End: 04-25-2023 EPIL EEG ROUTINE EPIL EEG ROUTINE NEUROLOGY Routine Multiple sclerosis ([facility]) 1 Occurrences starting 04/25/2022 until 04/25/2023 [facility] Work Phone: Comment on above: 1 Occurrences starti ng 04/25/2022 until 04/25/2023 Glucose measurement estimated from glycated hemoglobin [facility] End: 06-08-2025 HOME SLEEP APNEA TEST (HSAT) HOME SLEEP APNEA TEST (HSAT) Procedures Routine Snoring Chronic insomnia Malaise and fatigue At risk for obstructive sleep apnea 1 Occurrences starting 06/08/2024 until 06/08/2025 [facility] Work Phone: Comment on above: 1 Occurrences starti ng 06/08/2024 until 06/08/2025 IgG [Mass/volume] in Serum or Plasma IGG Lab Routine Multiple sclerosis (HCC) 04/25/2022 11:12 AM EDT [facility] Work Phone: IgM [Mass/volume] in Serum or Plasma IGM Lab Routine Multiple sclerosis ([facility]) 04/25/2022 11:12 AM EDT [facility] Work Phone: End: 01-23-2025 MR Thoracic spine WO and W contrast IV MRI THORACIC SPINE WO/W IVCON Radiology Routine Multiple sclerosis (HCC) 1 Occurrences starting 12/25/2023 until 01/23/2025 [facility] Work Phone: Comment on above: 1 Occurrences starti ng 12/25/2023 until 01/23/2025 OT PLAN OF CARE CERTIFICATION OT PLAN OF CARE CERTIFICATION Procedures Routine Multiple sclerosis (HCC) Abnormal antibody titer Neurogenic bladder Lack of coordination Ordered: 05/30/2022 [facility] Work Phone: Comment on above: Ordered: 05/30/2022 Patient Education [facility] Work Phone: Patient referral [facility] Work Phone: PT PLAN OF CARE CERTIFICATION PT PLAN OF CARE CERTIFICATION Procedures Routine Abnormality of gait Multiple sclerosis (HCC) Ordered: 07/22/2022 [facility] Work Phone: Comment on above: Ordered: 07/22/2022 SPEECH PLAN OF CARE CERTIFICATION SPEECH PLAN OF CARE CERTIFICATION Procedures Routine Multiple sclerosis (HCC) Cognitive communication deficit Ordered: 05/30/2022 [facility] Work Phone: Comment on above: Ordered: 05/30/2022 SPEECH PLAN OF CARE CERTIFICATION SPEECH PLAN OF CARE CERTIFICATION Procedures Routine Cognitive communication deficit Ordered: 07/22/2022 [facility] Work Phone: Comment on above: Ordered: 07/22/2022 US for US OB follow UP transabdominal approach Imaging Routine Encounter for supervision of normal , unspecified, unspecified trimester 09/17/2024 3:04 PM EST [facility] Service Area Work Phone: VARICELLA ZOSTER IGG VARICELLA Z YARELIS IGG Lab Routine Multiple sclerosis (HCC) 04/25/2022 11:12 AM EDT [facility] Work Phone: End: 04-03-2025 XR Cervical spine AP and Lateral and oblique XR CERV OTHER 4V AP/LAT/OBL Radiology Routine Neck pain 1 Occurrences starting 03/04/2024 until 04/03/2025 [facility] Work Phone: Comment on above: 1 Occurrences starti ng 03/04/2024 until 04/03/2025 XR Cervical spine AP and Lateral and oblique XR CERV OTHER 4V AP/LAT/OBL Radiology Routine Neck pain 03/04/2024 2:13 PM EDT [facility] End: 04-03-2025 XR Lumbar spine 3 Views XR LUMBAR GENERAL 3V AP/LAT/L5-S1 Radiology Routine Chronic midline low back pain without sciatica 1 Occurrences starting 03/04/2024 until 04/03/2025 [facility] Comment on above: 1 Occurrences starti ng 03/04/2024 until 04/03/2025 XR Lumbar spine 3 Views XR LUMBA R GENERAL 3V AP/LAT/L5-S1 Radiology Routine Chronic midline low back pain without sciatica 03/04/2024 2:12 PM EDT [facility] zoltan [address] Work Phone: [facility] NEGATED: Highlighted row has been ruled out! Planned Goals not documented [facility] Work Phone: Immunizations Immunization Date Immunization Notes Care Provider Fa cility 11-20-2023 influenza, injectabl e, quadrivalent, preservative free Kenzie [facility] 11-20-2023 influenza virus vaccine, unspecified formulation Kenzie [facility] 01-15-2022 tetanus toxoid, redu minor diphtheria toxoid, and acellular pertussis vaccine, adsorbed Nidia Garcia MD Work Phone: [facility] Payers Date Payer Category Payer Self-pay [id number] 2023 Medicare (Managed Care) 1.2. [id number] 2023 Private Health Insurance [id number] 2022 Unknown [id number] .[id number] 2021 Medicare [employer] [facility] [id number] 2021-Present [phone] [address] [place] [address] [facility] [id number] 2021 Medicare [id number]. [id number] .[id number] 2020 Private Health Insurance [id number] [facility] MEDICAID [id number] 2020-Present [phone] [address] [place] [address] Medicaid [id number] .[id number] 2020 Medicaid [id number]. 1.13.159.2.7 .[id number] 2020 Medicaid [id number] 1985 Unknown [id number] 2.16.840.1.879134.3.579.2.7 32 1985 Unknown [id number] 2.16.840.1.826127.3.579.2.1 259 1985 Unknown [id number] 2.16.840.1.565417.3.579.2.1 259 1985 Unknown [id number] 2.16.840.1.299901.3.579.2.1 259 1985 Unknown [id number] 2.16.840.1.000543.3.579.2.1 259 1985 Unknown [id number] 2.16.840.1.632369.3.579.2.1 259 1985 Unknown [id number] 2.16.840.1.091251.3.579.2.1 259 1985 Unknown [id number] 2.16.840.1.039007.3.579.2.1 259 1985 Unknown [id number] 2.16.840.1.872557.3.579.2.1 259 1985 Unknown [id number] 2.16840.1.139654.3.579.2.1 259 1985 Unknown [id number] 2.16.840.1.644604.3.579.2.1 259 1985 Unknown [id number] 2.16.840.1.113658.3.579.2.1 259 1985 Unknown [id number] 2.16.840.1.260090.3.579.2.1 259 1985 Unknown [id number] 2.16.840.1.844584.3.579.2.1 259 1985 Unknown [id number] 2.16.840.1.609090.3.579.2.1 259 1985 Unknown [id number] 2.16.840.1.987356.3.579.2.1 259 1985 Unknown [id number] 2.16.840.1.300273.3.579.2.1 259 1985 Unknown [id number] 2.16.840.1.463315.3.579.2.1 259 1985 Unknown [id number] 2.16.840.1.369102.3.579.2.1 259 1985 Unknown [id number] 2.16.840.1.073169.3.579.2.1 259 1985 Unknown [id number] 2.16.840.1.122518.3.579.2.1 259 1985 Unknown [id number] 2.16.840.1.506389.3.579.2.1 259 1985 Unknown [id number] 2.16.840.1.841709.3.579.2.1 259 1985 Unknown [id number] 2.16.840.1.518528.3.579.2.1 259 1985 Unknown [id number] 2.16.840.1.804748.3.579.2.1 245 1985 Unknown [id number] 2.16.840.1.852469.3.579.2.1 245 1985 Unknown [id number] 2.16.840.1.011575.3.579.2.1 245 1985 Unknown [id number] 2.16.840.1.199568.3.579.2.1 245 1985 Unknown [id number] 2.16.840.1.521100.3.579.2.1 245 1985 Unknown [id number] 2.16.840.1.883450.3.579.2.1 245 1985 Unknown [id number] 2.16.840.1.874650.3.579.2.1 245 1985 Unknown [id number] 2.16.840.1.303731.3.579.2.1 1985 Unknown [id number] 2.16.840.1.713113.3.579.2.1 245 Medicaid [id number] Medicare [id number] Unknown [id number] 2.16.840.1.161912.3.579.2.5 31 Unknown [id number] 2.16.840.1.126421.3.579.2.5 31 Unknown [id number] 2.16.840.1.647778.3.579.2.5 31 Unknown [id number] 2.16.840.1.547205.3.579.2.5 31 Social History Date Type Detail Facility Tobacco smoking stat us NHIS Unknown if ever smoked [facility] Start: 1985 Sex Assigned At Female C [facility] Start: 11-15-2019 End: 07-17-2023 Tobacco smoking status NHIS Never smoked tobacco [facility] Start: 11-15-2019 End: 07-17-2023 Tobacco use and exposure Smokeless tobacco non-user [facility] Start: 01-15-2022 End: 08-30-2024 Alcohol intake Ex-drinker (finding) [facility] Start: 11-15-2019 History SDOH Alcohol Comment occas [facility] Start: 03-16-2022 End: 10-05-2024 Exposure to SARS-CoV-2 (event) Not sure [facility] Start: 04-25-2022 Education 17 [facility] Start: 12-16-2022 History SDOH Alcohol Frequency 1 [facility] Start: 12-16-2022 History SDOH Alcohol Std Drinks 0 [facility] Start: 12-16-2022 History SDOH Social Connections Phone 4 [facility] Start: 12-16-2022 History SDOH Social Connections Membership 2 [facility] Start: 12-16-2022 History SDOH Social Connections Living 7 [facility] Start: 12-16-2022 History SDOH Physica l Activity MPS 3 [facility] Start: 12-16-2022 History SDOH Stress 5 [facility] Start: 12-16-2022 End: 07-17-2023 History of Social function [facility] Start: 12-16-2022 End: 07-17-2023 Social connection and isolation panel [facility] Do you belong to any clubs or organizations such as rastafarian groups, unions, fraternal or athletic groups, or school groups? No [facility] Are you now , , , , never or living with a partner? Never [facility] How often to you hav e a drink containing alcohol? Never [facility] How many standard drinks containing alcohol do you have on a typical day? Patient does not drink [facility] How hard is it for y ou to pay for the very basics like food, housing, medical care, and heating Somewhat hard [facility] Do you feel stress - tense, restless, nervous, or anxious, or unable to sleep at night because your mind is troubled all the time - these days [OSQ] Very much [facility] (I/We) worried wheromain er (my/our) food would run out before (I/we) got money to buy more. Often true [facility] Start: 12-23-2020 Gender identity Identifies as female gender (finding) [facility] Start: 12-23-2020 Sexual orientation Heterosexual (fin ding) [facility] History of tobacco use Passive smoker [facility] Start: 12-11-2023 End: 08-17-2024 Alcohol intake Lifetime non-drinker (finding) [facility] Start: 02-04-2024 [facility] NEGATED: Highlighted row - - [facility]Zqkxgekl[facility]-Ftobx vahid 0 Work Phone: Goals Date Patient Goal Desired Activity /State Personal health goal Personal health goal Personal health goal Functional Status Date Assessment Result Facility NEGATED: Highlighted row Functional performance Functional status health issues are not documented Disease [facility]-Hbsdvwtdsm-Mawqi vhaid 0 Work Phone: Mental Status Date Assessment Result Facility NEGATED: Highlighted row Cognitive function [Interpretation] Cognitive status health issues are not documented Disease [facility]rfwssg[facility]-Amjol vahid 2300 Work Phone: Clinical Notes 04-17-2021 to 10-11-2024 Estrella Sorto, PT, DPT - 10/11/2024 1:[address] PT, DPT - 10/11/2024 12:48 PM ANSON Gutiérrez - 10/04/2024 1:40 PM Lulú Caballero LPN - 09/27/2024 2:30 PM EST Note Date & Type Note Facility 10-11-2024 History of Present illness Narrative Program_ID:[id number] Access Code: [email or web address] URL: [email or web address] Date: 10-11-2024 Prepared By: Estrella Sorto Program Notes Exercises [...] weekly - 2 sets - 10 reps - Hamstring Set with [place] Ball - 1 x daily - 7 x weekly - 2 sets - 10 reps - Supine Bridge - 1 x daily - 7 x weekly - 2 sets - 10 reps Images from the original note were not included. Episode Visit Count: 3 Therapist That Will Accept/Oversee The Plan Of Care: Estrella Sorto Start of Care Date: 09/03/24 Onset Date: 03/12/24 Plan of Care Certification Date: 09/03/24 Next Certification Due Date: 11/02/24 Patient Identified by Name and Date of : Yes REHABIL[facility]ATION AND SPORTS THERAPY PHYSICAL THERAPY DISCONTINUANCE OF CARE PLAN OF CARE UPDATE: Assessment: Carol Ann Martinez is discontinued from Physical Therapy services due to Patient/Clinician mutual decision to discontinue current plan of care. and due to change in medical status with upcoming labor . Patient was seen for 3 visits from Start of Care Date: 09/03/24 to 10/11/2024 and treatment included: Therapeutic exercise and Self-penitentiary management. Exhibits minor improvements in her strength at this time. Encouraged consistent HEP as tolerated within the next week and then return to HEP pending physician clearance . Pt to be induced through labor next week, so discharge to indepedent HEP as tolerated. Goals for Episode of Care: established 09/03/24 Bells in home exercise program. Met Patient will decrease pain rating by 2 points to meet minimal clinical important difference for numeric pain rating scale. Improved Patient will demonstrate increase in bilateral LE strength to 4+/5 during manual muscle testing in order to improve function for basic self-care tasks, leisure / recreation skills, and light functional tasks. Improved Pt will report being able to walk for at least 5-10 minutes with pain <2/10 to improve tolerance through ambulation. Continues to be limited by pain. Patient Goals: Help with hip pain and get stronger; Improved SUBJECTIVE: . Carol Ann states some improvements. Reduced instances of sharp pain through her hip. Pain is mainly present through weightbearing tasks, including standing/walking >5 minutes. Notes some improvements in her strength as well. Reports compliance through HEP. Overall, pt reports approx. 30% improvement since IE. She sees chiropractor tonight and notes that has been helpful as well. She is planning to be induced next week, so pt planning to discharge after this visit. Functional Limitations: walking, walking in the house, standing, weight bearing Pain: Pain Pain Level: 2 Pain Location: Hip - Right Description: Aching Post Treatment Pain Post Treatment Pain Level: [...] score. OBJECTIVE MEASURES WITH LEVEL OF FUNCTION: LE Strength R Hip Extension: 3+/5 R Hip Flexion (L2): 3/5 R Hip ABduction: 3+/5 R Hip ADduction: 3+/5 L Hip Extension: 4/5 L Hip Flexion (L2): 3/5 L Hip ABduction: 3+/5 L Hip ADduction: 3+/5 Gait Gait Observation: Moderate antalgia, decreased weight bearing through R LE, decreased step length, and increased lateral sway R, WBOS TREATMENT: Therapeutic Exercise: 1: hooklying clamshells 3x10 YTB 2: hooklying hip adduction with ball squeeze 3x10 c 5 hold 3: glute bridge 3x10 (minimal ROM due to strength limitations) 4: supine heel slides on ball 3x10 5: updated and reviewed HEP and objective measures Skilled Intervention: Patient was educated in proper exercise technique and purpose for exercises. Reviewed and educated patient on additions/changes for home exercise program as above (*). Skilled judgment was used in selection of appropriate interventions. Provided written instruction for home exercise program to facilitate proper performance and compliance. Correct performance of therapeutic exercises was facilitated with verbal and visual cuing. Billing Therapeutic Exercise Treatment Minutes: 40 Skilled Treatment Time Minutes (timed and untimed codes): 40 Total Session Time (minutes): 40 Session Start Time : 1253 Session Stop Time : 1333 Estrella Sorto PT, DPT documented in this encounter [facility] 10-04-2024 History of Present illness Narrative Reason [...] mometasone (Elocon) 0.1 % cream Daily RT Vquqsvsw-Gjc-Pz-FA (Jenliva /) 1 MG capsule Take by [...] Hypocalcemia Hypoglycemia Low iron MS (multiple sclerosis) ([facility]) Urinary incontinence 2009 HISTORY PAST MEDICAL HISTORY SOCIAL HISTORY Past Medical History: Diagnosis Date Abnormal Pap smear of cervix 2008 Bacterial vaginosis 2019 Hypocalcemia Hypoglycemia Low iron MS (multiple sclerosis) ([facility]) Urinary incontinence 2009 Social History [...] documented in this encounter [facility] 09-27-2024 History of Present illness Narrative Reason [...] mometasone (Elocon) 0.1 % cream Daily RT Pwkysmvn-Vts-Ra-FA (Jenliva /) 1 MG capsule Take by [...] Hypocalcemia Hypoglycemia Low iron MS (multiple sclerosis) ([facility]) Urinary incontinence 2009 HISTORY PAST MEDICAL HISTORY SOCIAL HISTORY Past Medical History: Diagnosis Date Abnormal Pap smear of cervix 2007 Bacterial vaginosis 2019 Hypocalcemia Hypoglycemia Low iron MS (multiple sclerosis) ([facility]) Urinary incontinence 2009 Social History [...] nursing note reviewed. Exam conducted with a precision farming coordinator present. Vitals: Estimated body mass index is [...] documented in this encounter [facility] 09-22-2024 Note HNO ID: [id number] Author: ESTELLA DUTTON RD Service: ? Author Type: Registered Dietitian Type: Progress Notes Filed: 10/01/2024 16:42 Note Text: The [facility] Nutrition Therapy: Virtual Consult - Initial Assessment I have communicated my name and active licensure. The patient?s identity and physical location were verified at the time of this visit. Either the patient or their legal brewery representative has been informed of the risks [...] Ann Martinez DATE: 09/22/2024 TIME: 8:41 AM [facility] 09-22-2024 History of Present illness Narrative [facility] Nutrition Therapy: Virtual Consult - Initial Assessment I have communicated my name and active licensure. The patient s identity and physical location were verified at the time of this visit. Either the patient or their legal brewery representative has been informed of the risks [...] presents for an initial nutrition consult with PM of multiple sclerosis. Pt has been having [...] TIME: 8:41 AM documented in this encounter [facility] 09-21-2024 History of Present illness [...] mometasone (Elocon) 0.1 % cream Daily RT Dgqqzqie-Oqz-Pf-FA (Jenliva /) 1 MG capsule Take by [...] Hypocalcemia Hypoglycemia Low iron MS (multiple sclerosis) ([facility]) Urinary incontinence 2009 HISTORY PAST MEDICAL HISTORY SOCIAL HISTORY Past Medical History: Diagnosis Date Abnormal Pap smear of cervix 2007 Bacterial vaginosis 2019 Hypocalcemia Hypoglycemia Low iron MS (multiple sclerosis) ([facility]) Urinary incontinence 2008 Social History Tobacco Use Smoking status: Never Smokeless tobacco: Never Substance Use Topics Alcohol use: Never Drug use: Never FAMILY HISTORY Family History Problem Relation Name Age of Onset Prostate cancer Father Multiple sclerosis Sister Diabetes Paternal Grandmother Kaitlin Martinez Alzheimer's disease Paternal Grandmother Kaitlin Maritnez Prostate cancer Paternal Grandfather SURGICAL HISTORY Past [...] nursing note reviewed. Exam conducted with a precision farming coordinator present. Vitals: Estimated body mass index is [...] documented in this encounter [facility] 09-21-2024 History of Present illness Narrative Program_ID:[id number] Access Code: [email or web address] URL: [email or web address] Date: 09-21-2024 Prepared By: Estrella Sorto Program [...] therapeutic exercises was facilitated with verbal cuing. Self-Fci Management: 1: discussed importance of focus through [...] Sorto PT, DPT documented in this encounter [facility] 09-21-2024 Note HNO ID: [id number] Author: ESTRELLA SORTO PT, DPT Service: ? [...] therapeutic exercises was facilitated with verbal cuing. Self-Fci Management: 1: discussed importance of focus through [...] and agreed upon. Estrella Sorto, PT, DPT [facility] 09-20-2024 Note HNO ID: [id number] Author: IBAN LAZO, PhD Service: ? Author Type: Psychologist Type: Progress Notes Filed: 09/20/2024 14:26 Note Text: Behavioral Sleep Medicine Follow up Iban Lazo, PhD I have communicated my name and active licensure. The patient's identity and physical location were verified at the time of this visit. Either the patient or their legal brewery representative has been informed of the risks and benefits of -- and alternatives to -- treatment through a remote evaluation and consents to proceed with the evaluation remotely. Contact Method: Zoom Patient Confirmed [address]: [address] [place] [address] Patient Confirmed Telephone #: [phone] Time: 40 minutes Individual Psychotherapy Session # [...] 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 Iban Lazo, PhD, Psychologist ([place] license [id number]) [facility] 09-20-2024 History of Present illness Narrative [...] been reviewed prior to dispensing the medication. Drawer In Dobby Loom Assessment Patient confirmed: Yes Med/dose confirmed: Yes Supplies needed: No supplies needed Missed doses: No Estimated days supply on hand: 1 Delivery method: FedEx Signature required: No Delivery address: [address] [place] [address] [address] Delivery date: 09/22/24 Questions or [...] (FLONASE) 50 mcg/actuation nasal spray Use 1 Freedom in each nostril once daily. No current facility-administered medications on file prior to visit. [facility] CLINICAL ASSESSMENT - NEUROLOGY V7: [...] without relapses Previous disease therapies: - Betaseron 4242-8475 - Copaxone 2656-3175 - Tysabri 2009-Summer 2019 (stopped due to [...] Kenzie Mccall RPh documented in this encounter [facility] 09-20-2024 Note HNO ID: [id number] Author: KENZIE MCCALL RPh Service: ? Author [...] been reviewed prior to dispensing the medication. Drawer In Dobby Loom Assessment Patient confirmed: Yes Med/dose confirmed: Yes Supplies needed: No supplies needed Missed doses: No Estimated days supply on hand: 1 Delivery method: FedEx Signature required: No Delivery address: [address] [place] [address] [address]T Delivery date: 09/22/24 Questions or concerns [...] (FLONASE) 50 mcg/actuation nasal spray Use 1 Freedom in each nostril once daily. No current facility-administered medications on file prior to visit. [facility] CLINICAL ASSESSMENT - NEUROLOGY V7: [...] without relapses Previous disease therapies: - Betaseron 9526-5009 - Copaxone 5567-9558 - Tysabri 2009-Summer 2019 (stopped due to [...] Treatment Duration: No information available Kenzie Mccall [facility] 09-03-2024 History of Present illness Narrative Program_ID:[id number] Access Code: [email or web address] URL: [email or web address] Date: 09-03-2024 Prepared By: Estrella Sorto Program [...] Goals for Episode of Care: established 09/03/24 Bells in home exercise program. Patient will decrease [...] Planned: 4 Planned Treatment Interventions: Therapeutic exercise (84379), Neuromuscular re-education (31320), Manual therapy (94137), Therapeutic activities (26646), Self-penitentiary management (58038), Gait Training (56063), Patient/Family/Caregiver Education PLAN FOR NEXT VISIT: Continue [...] Demonstration TREATMENT: PT Treatment Interventions: Therapeutic Exercise, Self-Fci Management Evaluation Evaluation Therapeutic Exercise: 1: *seated [...] use of heat and parameters for each. Self-Fci Management: 1: educated through diagnosis, prognosis, plan [...] Sorto PT, DPT [facility] [facility] 09-03-2024 Note HNO ID: [id number] Author: ESTRELLA SORTO PT, DPT Service: ? [...] Goals for Episode of Care: established 09/03/24 Bells in home exercise program. Patient will decrease [...] Planned: 4 Planned Treatment Interventions: Therapeutic exercise (00469), Neuromuscular re-education (53745), Manual therapy (37521), Therapeutic activities (02446), Self-penitentiary management (44086), Gait Training (54077), Patient/Family/Caregiver Education PLAN FOR NEXT VISIT: Continue [...] R Hip Pa (more content not included)... [facility] 09-02-2024 Telephone encounter Note Duplicate message Closing this encounter [facility] 09-02-2024 Miscellaneous Notes Duplicate message Closing this encounter documented in this encounter [facility] 08-30-2024 Note HNO ID: [id number] Author: ART SWENSON OD Service: ? Author Type: FINE UNHAIRER Type: Progress Notes Filed: 08/30/2024 16:40 Note [...] her +++ August 30, 2024 4:35 PM [facility] 08-30-2024 History of Present illness Narrative [...] 2024 4:35 PM documented in this encounter [facility] 08-26-2024 History of Present illness [...] the morning. cholecalciferol (Vitamin D3) 1.25 MG (98017 UT) tablet Take 1.25 mg by mouth once a week clotrimazole-betamethasone (Lotrisone) cream Apply 1 application topically Daily Apply to affected area daily for 7 days 45 g 0 ergocalciferol (Vitamin D-2) 1.25 MG (18530 UT) capsule Take 50,000 Units by mouth [...] (Elocon) 0.1 % cream Apply topically Daily Nqbzdcss-Ufk-Ui-FA (Jenliva /) 1 MG capsule Take by mouth Vit-Fe Fumarate-FA (M- Plus) 27-1 MG tablet Take 1 tablet [...] Hypocalcemia Hypoglycemia Low iron MS (multiple sclerosis) ([facility]) Urinary incontinence 2008 Past Surgical History: Procedure Laterality Date CERVICAL BIOPSY W/ LOOP ELECTRODE EXCISION 2007 COLONOSCOPY 2007 and 2018 COLPOSCOPY 2007 & 2018 DILATION AND CURETTAGE [...] tract infection, unspecified type See above. Aleyda WEINSTEIN, PA-C documented in this encounter [facility] 08-24-2024 History of Present illness Narrative [...] mometasone (Elocon) 0.1 % cream Daily RT Zqsfylpz-Tsq-Vb-FA (Jenliva /) 1 MG capsule Take by [...] Hypocalcemia Hypoglycemia Low iron MS (multiple sclerosis) ([facility]) Urinary incontinence 2009 HISTORY PAST MEDICAL HISTORY SOCIAL HISTORY Past Medical History: Diagnosis Date Abnormal Pap smear of cervix 2007 Bacterial vaginosis 2019 Hypocalcemia Hypoglycemia Low iron MS (multiple sclerosis) ([facility]) Urinary incontinence 2008 Social History Tobacco [...] nursing note reviewed. Exam conducted with a precision farming coordinator present. Vitals: Estimated body mass index is [...] dipstick manually resulted 3. MS (multiple sclerosis) (CMS/HCC) G35 methylPREDNISolone (Medrol Dospak) 4 MG tablets [...] documented in this encounter [facility] 08-18-2024 Note HNO ID: [id number] Author: CLARICE ZEPEDA HUC Service: ? Author Type: Health Reporting Developer Type: Progress Notes Filed: 08/18/2024 09:03 Note Text: Mialed OTC-Nutritional Suppl order to pt CAROL ANN MARTINEZ [address] [facility] [address] [facility] 08-18-2024 History of Present illness Narrative Mialed OTC-Nutritional Suppl order to pt CAROL ANN MARTINEZ [address] [facility] [address] documented in this encounter [facility] 08-17-2024 History of Present illness [...] MD Maternal Medicine documented in this encounter [facility] Work Phone: 08-17-2024 Telephone encounter Note Prescription signed and had to be printed, will send out Letter written and placed in chart Tor Hernandez APRN.TREE August 17, 2024 10:26 AM [facility] 08-17-2024 Miscellaneous Notes Prescription signed and had to be printed, will send out Letter written and placed in chart Tor Hernandez APRN.CNP August 17, 2024 10:26 AM documented in this encounter [facility] 08-16-2024 History of Present illness [...] been reviewed prior to dispensing the medication. Drawer In Dobby Loom Assessment Patient confirmed: Yes Med/dose confirmed: Yes Supplies needed: No supplies needed Missed doses: No Estimated days supply on hand: (maybe 2 weeks, not sure) Next cycle/dose due: 08/16/24 Copay amount: 0 Payment confirmed: Yes Delivery method: FedEx Signature required: Waived on patient request Delivery address: [address] [place] [id number] Delivery date: 08/31/24 Questions or concerns for [...] (FLONASE) 50 mcg/actuation nasal spray Use 1 Freedom in each nostril once daily. No current facility-administered medications on file prior to visit. [facility] ([facility] CLINICAL ASSESSMENT - NEUROLOGY V7: [...] inject where skin looks healthy. Training video ([employer] no longer supplies nurses for training, or injection devices) PFS supplied and training video https://www.[employer]/injectio n-assistance/oyb-wg-gajkrk DDI none pertinent Vaccines reviewed Est. Tx Plan Start Date: No information available Estimated Start Date Info: No information available Est. Estimated Treatment Duration: No information available Madison Puente ([email or web address]) documented in this encounter [facility] 08-16-2024 Note HNO ID: [id number] Author: KENZIE MCCALL RPh Service: ? Author [...] been reviewed prior to dispensing the medication. Drawer In Dobby Loom Assessment Patient confirmed: Yes Med/dose confirmed: Yes Supplies needed: No supplies needed Missed doses: No Estimated days supply on hand: (maybe 2 weeks, not sure) Next cycle/dose due: 08/16/24 Copay amount: 0 Payment confirmed: Yes Delivery method: FedEx Signature required: Waived on patient request Delivery address: [address] [place] [address] Delivery date: 08/31/24 Questions or concerns for [...] (FLONASE) 50 mcg/actuation nasal spray Use 1 Freedom in each nostril once daily. No current facility-administered medications on file prior to visit. [facility] ([facility] CLINICAL ASSESSMENT - NEUROLOGY V7: [...] inject where skin looks healthy. Training video ([employer] no longer supplies nurses for training, or injection devices) PFS supplied and training video https://www.[employer]/injectio n-assistance/gjp-ft-aypibr DDI none pertinent Vaccines reviewed Est. Tx Plan Start Date: No information available Estimated Start Date Info: No information available Est. Estimated Treatment Duration: No information available Madison Puente (Transplant Nurse Practitioner) [facility] 08-10-2024 History of Present illness Narrative [...] Vitamin (multivitamin) tablet 1 tablet, Oral, Daily Kauketfo-Srl-Hh-FA (Jenliva /) 1 MG capsule Oral Vit-Fe [...] Hypocalcemia Hypoglycemia Low iron MS (multiple sclerosis) ([facility]) Urinary incontinence 2009 HISTORY PAST MEDICAL HISTORY SOCIAL HISTORY Past Medical History: Diagnosis Date Abnormal Pap smear of cervix 2007 Bacterial vaginosis 2019 Hypocalcemia Hypoglycemia Low iron MS (multiple sclerosis) ([facility]) Urinary incontinence 2009 Social History [...] nursing note reviewed. Exam conducted with a precision farming coordinator present. Vitals: Estimated body mass index is [...] [facility] 07-30-2024 Note HNO ID: [id number] Author: IBAN LAZO, PhD Service: ? Author Type: Psychologist Type: Progress Notes Filed: 07/30/2024 16:31 Note Text: Behavioral Sleep Medicine Follow up Iban Lazo, PhD I have communicated my name and active licensure. The patient's identity and physical location were verified at the time of this visit. Either the patient or their legal brewery representative has been informed of the risks and benefits of -- and alternatives to -- treatment through a remote evaluation and consents to proceed with the evaluation remotely. Contact Method: Zoom Patient Confirmed Address: [address] [place] [address] Patient Confirmed Telephone #: [phone] Time: 56 minutes Individual Psychotherapy Session # [...] until feel sleepy (more content not included)... [facility] 07-20-2024 Instructions Germania Wilkinson MD - [...] hours of bedtime. documented in this encounter [facility] 07-20-2024 Note HNO ID: [id number] Author: GERMANIA WILKINSON MD Service: ? Author Type: Physician Type: Progress Notes Filed: 07/21/2024 15:38 Note Text: [facility] Sleep Disorders Center Follow up/ Established patient visit Date of last visit : 08/19/2023 I have communicated my name and active licensure. The patient's identity and physical location were verified at the time of this visit. Either the patient or their legal brewery representative has been informed of the risks [...] sorted in reverse-chronological order 04/13/2024 05/23/2024 07/08/2024 Thomson Sleepiness Scale Score 0 (No clinically significant [...] mg by mo (more content not included)... [facility] 07-20-2024 History of Present illness Narrative Images from the original note were not included. [facility] Sleep Disorders Center Follow up/ Established patient visit Date of last visit : 08/19/2023 I have communicated my name and active licensure. The patient's identity and physical location were verified at the time of this visit. Either the patient or their legal brewery representative has been informed of the risks [...] sorted in reverse-chronological order 04/13/2024 05/23/2024 07/08/2024 Thomson Sleepiness Scale Score 0 (No clinically significant [...] (FLONASE) 50 mcg/actuation nasal spray Use 1 Freedom in each nostril once daily. PHYSICAL EXAMINATION: NEUROLOGICAL EXAM: General: Awake, alert, speech fluent, comprehension, naming, repetition intact. Short and mcfp memory intact. IMPRESSION: Primary insomnia (primary encounter diagnosis) Rls (restless legs syndrome) Carol Ann Martinez is a 38 year old female with hx of MS and WINIFRED here for evaluation of insomnia, RLS. She is currently and has come off of trazodone for her insomnia. She is currently taking bikw-llx-pafjcml Unisom without much benefit. Her sleep is [...] BSM for CBTi Germania Wilkinson MD Clinical Flight Kitchen Manageraviation support equipment repairer [facility] documented in this encounter [facility] 07-19-2024 Note HNO ID: [id number] Author: JANICE LANE MD Service: ? Author [...] the hip. She is not taken anything snqd-vht-vjxbmfg for it. Patient has multiple sclerosis. Her [...] few seconds when she was on a vqyce-il-ergdn with her daughter. She told her MASS SPECTROMETRY MANAGER about the symptoms she has started to [...] mucosa, and tongue (more content not included)... [facility] 07-19-2024 History of Present illness Narrative [...] the hip. She is not taken anything qfqv-jtt-kivyxfz for it. Patient has multiple sclerosis. Her [...] few seconds when she was on a bwfth-le-kywse with her daughter. She told her MASS SPECTROMETRY MANAGER about the symptoms she has started to [...] by neurology. - CONSULT TO PHYSICAL THERAPY Jyqawqaia-mlicwc-lf with MASS SPECTROMETRY MANAGER as scheduled. Patient said she is on pelvic rest and limited lifting due to shortened cervix. Viral URI-if symptoms worsen, take amoxicillin Dry skin on the nose-give a trial of Elocon cream Janice Lane MD documented in this encounter [facility] 07-19-2024 History of Present illness [...] been reviewed prior to dispensing the medication. Drawer In Dobby Loom Assessment Patient confirmed: Yes Med/dose confirmed: Yes Supplies needed: No supplies needed Missed doses: No Estimated days supply on hand: 3 Next cycle/dose due: 07/19/24 Copay amount: 0 Payment confirmed: Yes Delivery method: FedEx Signature required: Waived on patient request Delivery address: [address] [place] [address] Delivery date: 07/23/24 Questions or concerns for [...] (FLONASE) 50 mcg/actuation nasal spray Use 1 Freedom in each nostril once daily. No current facility-administered medications on file prior to visit. [facility] SPECIALTY CLINICAL ASSESSMENT - NEUROLOGY V7: [...] inject where skin looks healthy. Training video ([employer] no longer supplies nurses for training, or injection devices) PFS supplied and training video https://www.[employer]/injectio n-assistance/qja-ki-fdvgvl DDI none pertinent Vaccines reviewed Est. Tx Plan Start Date: No information available Estimated Start Date Info: No information available Est. Estimated Treatment Duration: No information available Madison Puente ([email or web address]) documented in this encounter [facility] 07-19-2024 Note HNO ID: [id number] Author: KENZIE MCCALL RPh Service: ? Author [...] been reviewed prior to dispensing the medication. Drawer In Dobby Loom Assessment Patient confirmed: Yes Med/dose confirmed: Yes Supplies needed: No supplies needed Missed doses: No Estimated days supply on hand: 3 Next cycle/dose due: 07/19/24 Copay amount: 0 Payment confirmed: Yes Delivery method: FedEx Signature required: Waived on patient request Delivery address: [address] [place] [address] Delivery date: 07/23/24 Questions or concerns for [...] 6 MONTHS April 02, 2022 5:21pm pt. deboraves infusion Q6M for MS VITAMIN B COMPLEX ORAL Take by mouth. melatonin 3 mg tablet Take 1 tablet by mouth once daily as needed. fluticasone (FLONASE) 50 mcg/actuation nasal spray Use 1 Freedom in each nostril once daily. No current facility-administered medications on file prior to visit. [facility] ([facility] SPECIAL[facility] CLINICAL ASSESSMENT - NEUROLOGY V7: [...] inject where skin looks healthy. Training video ([employer] no longer supplies nurses for training, or injection devices) PFS supplied and training video https://www.[employer]/injectio n-assistance/bnu-jp-gajtzs DDI none pertinent Vaccines reviewed Est. Tx Plan Start Date: No information available Estimated Start Date Info: No information (more content not included)... [facility] 07-08-2024 Note HNO ID: [id number] Author: IBAN LAZO, PhD Service: ? Author Type: Psychologist Type: Progress Notes Filed: 07/08/2024 14:21 Note Text: Behavioral Sleep Medicine Follow up Iban Lazo, PhD I have communicated my name and active licensure. The patient's identity and physical location were verified at the time of this visit. Either the patient or their legal brewery representative has been informed of the risks and benefits of -- and alternatives to -- treatment through a remote evaluation and consents to proceed with the evaluation remotely. Contact Method: Zoom and Doximity (switched to Doximity after Zoom connection issues) Patient Confirmed Address: [address] [place] [address] Patient Confirmed Telephone #: [phone] Time: 55 minutes Individual Psychotherapy Session # [...] of HSAT results Iban Lazo, PhD, Psychologist ([place] license [id number]) [facility] 06-22-2024 Note HNO ID: [id number] Author: NATALIE NEWBERRY RPh Service: ? Author [...] state markers and outcomes. Natalie Newberry RPh Drawer In Dobby Loom Assessment Patient confirmed: Yes Med/dose confirmed: Yes Supplies needed: No supplies needed Missed doses: No Estimated days supply on hand: 7 Next cycle/dose due: 06/23/24 Copay amount: 0 Delivery method: FedEx Signature required: Waived on patient request Delivery address: [address] [facility] [address] Delivery date: 06/25/24 Questions or concerns for [...] (FLONASE) 50 mcg/actuation nasal spray Use 1 Freedom in each nostril once daily. No current facility-administered medications on file prior to visit. [facility] ([facility] SPECIALTY CLINICAL ASSESSMENT - NEUROLOGY V7: [...] inject where skin looks healthy. Training video ([employer] no longer supplies nurses for training, or injection devices) PFS supplied and training video https://www.[employer]/injectio n-assistance/noj-rz-qnvpmb DDI none pertinent Vaccines reviewed Est. Tx Plan Start Date: No information available Estimated Start Date Info: No information available Est. Estimated Treatment Duration: No information available Rian (more content not included)... [facility] 06-22-2024 Telephone encounter Note The following approved medication requests have been transmitted electronically. Requested Prescriptions Signed Prescriptions Disp Refills glatiramer (COPAXONE) 40 mg/mL injection 12 mL 5 Sig: Inject 40 mg subcutaneously every Friday, Friday, and Friday. Authorizing Provider: TOR HERNANDEZ APRN.TREE [facility] 06-22-2024 Miscellaneous Notes The following [...] Marcin Ervin RPh documented in this encounter [facility] 06-22-2024 Telephone encounter Note Patient is in need of a new prescription as follows: Requested Prescriptions Pending Prescriptions Disp Refills glatiramer (COPAXONE) 40 mg/mL injection 12 mL 5 Sig: Inject 40 mg subcutaneously every Friday, Friday, and Friday. Last office visit 06-09-24 Please review and advise. Marcin Ervin RPh [facility] 06-16-2024 Note HNO ID: [id number] Author: JOSR VICENTE, PhD Service: ? Author [...] Circadian Rhythm delayed. 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 [place] : Josr Vicente, PhD, [facility] Psychologist ([place] License [id number]) Behavioral Sleep Medicine Disclosure: There are limitations of actigraphy data. This test is not a measure of daytime sleepiness or insomnia. Findings may suggest the etiology of sleepiness due to an observed pattern or help in the understanding of patterns associated with conditions being evaluated [facility] 06-14-2024 Note HNO ID: [id number] Author: ?, ?, ? Service: ? Author Type: ? Type: Progress Notes Filed: 06/14/2024 14:32 Note Text: Returned with logs [facility] 06-14-2024 History of Present illness Narrative Returned with logs Called patient to return watch ACTIGRAPHY DEVICE #[id number] Date shipped out 05/25/2024 [employer] MAIL OUT TRACKING NUMBER [id number] [employer] RETURN TRACKING NUMBER [id number] Ann documented in this encounter [facility] 06-11-2024 Telephone encounter Note This QA CONSULTANT put in a referral to the [facility] for pt to get connected to additional resources. DEZ Archer, [facility] Radius App Work [facility] 06-11-2024 Miscellaneous Notes This QA CONSULTANT put in a referral to the [facility] for pt to get connected to additional resources. DEZ Archer, [facility] [employer] App Work documented in this encounter [facility] 06-11-2024 Note HNO ID: [id number] Author: ?, ?, ? Service: ? Author Type: ? Type: Progress Notes Filed: 06/14/2024 14:32 Note Text: Called patient to return watch [facility] 06-10-2024 Note HNO ID: [id number] Author: CLARICE ZEPEDA HUC Service: ? Author Type: Health Reporting Developer Type: Progress Notes Filed: 06/10/2024 13:06 Note Text: Mailed-nutritional supplement OTC TO PATIENT [facility] 06-10-2024 History of Present illness Narrative Mailed-nutritional supplement OTC TO PATIENT documented in this encounter [facility] 06-09-2024 Instructions Tor Hernandez APRN.SYSTEMS ADMINISTRATOR - 06/09/2024 3:40 PM EDT PLAN: - Continue Copaxone - plan to resume Ocrevus after delivery - Will hold on further MRI monitoring for now - Recommend oral nutritional supplement - Recommend continued close follow up with PCP and OB - Will reach out to [place] re: finances/resources - Follow up soon after deliver documented in this encounter [facility] 06-09-2024 History of Present illness Narrative Images from the original note were not included. [facility] FOLLOWUP/ESTABLISHED VIRTUAL PATIENT VISIT PRINCIPAL NEUROLOGIC DIAGNOSIS: Multiple Sclerosis DISEASE SUMMARY Date of onset: 03/2007 Date of diagnosis of MS: 03/2007 Disease course at onset: Relapsing-Remitting Current disease course: Progressive without relapses Previous disease therapies: - Betaseron [id number] - Copaxone 5351-1548 - Tysabri 2009-Summer 2019 (stopped due to [...] over 3 weeks following occipital relase - 4004-6092 recurrent OS ON - 8874-8840 several relapses including L numbness, weakness, constipation, urinary urgency - 2019 R weakness and numbness needing a wheelchair, hospitalized at [facility] (off Tysabri x3 months due to planning ). Also had OD vision loss at this time. At this time also notes substantial mold exposure due to it being all over her apt (has since moved). CHIEF COMPLAINT: MS symptom management Usual treating team: Christina Today's visit is being completed virtually over [employer]. I have communicated my name and active licensure. The patient's identity and physical location were verified at the time of this visit. Either the patient or their legal brewery representative has been informed of the risks [...] Row Social Work from 01/21/[address] [facility] Office Visit from 07/23/[address] [facility] Office Visit from 01/17/[address] [facility] Upper Extremity Domain T Score 28 [...] Row Social Work from 01/21/[address] [facility] Office Visit from 07/23/[address] [facility] Office Visit from 01/17/[address] [facility] Sleep Domain T Score 66 69.2 [...] Edema of lower extremity (04/17/2021), Multiple sclerosis ([facility]), Seizure ([facility]), and Thyroid disease. She has no past medical history of Asthma, Blood dyscrasia, Breast disorder, Chlamydia, Chronic kidney disease, Complication of anesthesia, Coronary artery disease, Diabetes ([facility]), Diabetes, gestational, Gonorrhea, Herpes simplex virus (HSV) infection, History of pre-eclampsia in prior , currently , HIV infection ([facility]), Hypertension, Infertility, female, Liver disease, Malignant hyperthermia due to anesthesia, Mental disorder, Placental abruption, depression, hemorrhage, Rh incompatibility, Sickle cell anemia ([facility]), Syphilis, or Systemic lupus erythematosus ([facility]). has a current medication list which includes the following prescription(s): OTC NUTRITIONAL SUPPLEMENT, glatiramer, magnesium oxide, cholecalciferol, ketoconazole, mirtazapine, norethindrone (contraceptive), vitamin b complex with c-fa-cu-zn renal vitamins, ferrous sulfate, multiple vitamin-minerals, dalfampridine er, norethindrone (contraceptive), ketoconazole, tizanidine, ocrelizumab, vitamin b complex, melatonin, and fluticasone. EXAM: LMP 12/21/2023 (Exact Date) MSPT Results Flowsheet Row Office Visit from 07/23/[address] [facility] Office Visit from 01/17/[address] [facility] Processing Speed Total Number Correct 52 [...] intellectual function Affect: Normal [facility]: [facility] A1c (5.2), CBC diff [...] OB - Will reach out to [place] re: finances/resources - Follow up soon after deliver No orders found for this visit on 06/09/24. I spent a total of 40 minutes on the date of the service which included preparing to see the patient, qhoe-oh-xzkm patient care, completing clinical documentation, obtaining and/or reviewing separately obtained history, performing a medically appropriate examination, counseling and educating the patient/family/caregiver, communicating with other HCPs (not separately reported), independently interpreting results (not separately reported), and communicating results to the patient/family/caregiver. Tor Hernandez APRN.CNP [facility] documented in this encounter [facility] 06-09-2024 Note HNO ID: [id number] Author: TOR HERNANDEZ APRN.CNP Service: ? Author Type: Nurse Practitioner Type: Progress Notes Filed: 06/09/2024 15:43 Note Text: [facility] FOLLOWUP/ESTABLISHED VIRTUAL PATIENT VISIT PRINCIPAL NEUROLOGIC DIAGNOSIS: Multiple Sclerosis DISEASE SUMMARY Date of onset: 03/2007 Date of diagnosis of MS: 03/2007 Disease course at onset: Relapsing-Remitting Current disease course: Progressive without relapses Previous disease therapies: - Betaseron 9612-7392 - Copaxone 0230-7416 - Tysabri 2009-Summer 2019 (stopped due to planned ) - Copaxone 2909-3625 (during ) - Ocrevus (02/28/21 through 09/25/23, d/c'd for ) Current disease therapy: Copaxone (03/2024-present) Most recent MRI brain: 01/02/23 (stable) Most recent MRI cervical spine: 01/02/23 (stable) Most recent MRI thoracic spine: 01/19/24 CSF: NA JCV: 02/14/2021 0.28, stratify negative Brief Disease History: - 2006 lower extremity numbness evolving over 3 weeks following occipital relase - 5734-3745 recurrent OS ON - 8434-4057 several relapses including L numbness, weakness, constipation, urinary urgency - 2019 R weakness and numbness needing a wheelchair, hospitalized at [facility] (off Tysabri x3 months due to planning ). Also had OD vision loss at this time. At this time also notes substantial mold exposure due to it being all over her apt (has since moved). CHIEF COMPLAINT: MS symptom management Usual treating team: Christina Today's visit is being completed virtually over [employer]. I have communicated my name and active licensure. The patient's identity and physical location were verified at the time of this visit. Either the patient or their legal brewery representative has been informed of the risks [...] Row Social Work from 01/21/[address] [facility] Office Visit from 07/23/[address] [facility] Office Visit from 01/17/[address] [facility] Upper Extremity Domain T Score 28 [...] Row Social Work from 01/21/[address] [facility] Office Visit from 07/23/[address] [facility] Office Visit from 01/17/[address] [facility] Sleep Domain T Score 66 69.2 [...] Edema of lower extremity (04/17/2021), Multiple sclerosis ([facility]), Seizure ([facility]), and Thyroid disease. She has no past medical history of Asthma, Blood dyscrasia, Breast disorder, Chlamydia, Chronic kidney disease, Complication of anesthesia, Coronary artery disease, Diabetes ([facility]), Diabetes, gestational, Gonorrhea, Herpes simplex virus (HSV) infection, History of pre-eclampsia in prior , currently pregna (more content not included)... [facility] 06-08-2024 Instructions Germania Wilkinson MD - [...] is done to review results. - Call [phone] to schedule your sleep study and follow [...] the central scheduling system for the [facility] [place] at [phone]. [facility] website: [email or web address] documented in this encounter [facility] 06-08-2024 Note HNO ID: [id number] Author: GERMANIA WILKINSON MD Service: ? Author Type: Physician Type: Progress Notes Filed: 07/05/2024 23:04 Note Text: [facility] Follow up/ Established patient visit Date of last visit : 08/19/2023 I have communicated my name and active licensure. The patient's identity and physical location were verified at the time of this visit. Either the patient or their legal brewery representative has been informed of the risks [...] Syndrome Abnormal sleep/wake timing 03/19/2024 04/13/2024 05/23/2024 Thomson Sleepiness Scale Score 0 (No clinically significant [...] (FLONASE) 50 mcg/actuation nasal spray Use 1 Freedom in each nostril once daily. Prior Hypersomnia/Narcolepsy [...] prescription Medication renetta (more content not included)... [facility] 06-08-2024 History of Present illness Narrative Images from the original note were not included. [facility] Follow up/ Established patient visit Date of last visit : 08/19/2023 I have communicated my name and active licensure. The patient's identity and physical location were verified at the time of this visit. Either the patient or their legal brewery representative has been informed of the risks [...] Syndrome Abnormal sleep/wake timing 03/19/2024 04/13/2024 05/23/2024 Thomson Sleepiness Scale Score 0 (No clinically significant [...] (FLONASE) 50 mcg/actuation nasal spray Use 1 Freedom in each nostril once daily. Prior Hypersomnia/Narcolepsy [...] Germania Wilkinson MD documented in this encounter [facility] 05-27-2024 Note HNO ID: [id number] Author: IBAN LAZO, PhD Service: ? Author Type: Psychologist Type: Progress Notes Filed: 05/27/2024 18:02 Note Text: Behavioral Sleep Medicine Follow up Iban Lazo, PhD I have communicated my name and active licensure. The patient's identity and physical location were verified at the time of this visit. Either the patient or their legal brewery representative has been informed of the risks and benefits of -- and alternatives to -- treatment through a remote evaluation and consents to proceed with the evaluation remotely. 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 Pt indicated she was on her way to a medical facility to roll picker paperwork regarding her 2 week pelvic rest plan. Patient Confirmed Telephone #: [phone] Time: 33 minutes Individual Psychotherapy Session # [...] to avoid driving if sleepy/drowsy and to ear pull machine operator to a safe space to rest if she does find herself drowsy/sleepy while driving. Pt noted that her MASS SPECTROMETRY MANAGER stated she could take Unisom to sleep during - asked pt to wait to take this medication until after she completes actigraphy testing as we want to get a sense of her baseline sleep rhythms. Pt verbalized understanding. Pt reported that sleep quality has been the same. Pt stated that she is working with a therapist at [facility] named Aravind Retana- she reported that they most recently have talked about helping her to stop shopping and learning how to say no to people. Pt provided verbal consent for this provider to contact Aravind Retana to discuss pt's case to coordinate care and provided his contact phone number: [phone] Discussed the following plan with patient Complete [...] to start Uniso (more content not included)... [facility] 05-25-2024 Note HNO ID: [id number] Author: ?, ?, ? Service: ? Author Type: ? Type: Progress Notes Filed: 06/14/2024 14:32 Note Text: ACTIGRAPHY DEVICE #[id number] Date shipped out 05/25/2024 [employer] MAIL OUT TRACKING NUMBER [id number] [employer] RETURN TRACKING NUMBER [id number], Achasah [facility] 05-24-2024 History of Present illness Narrative [...] laboratory parameters, disease state markers and outcomes. Drawer In Dobby Loom Assessment Patient confirmed: Yes Med/dose confirmed: Yes Supplies needed: Alcohol swabs Missed doses: No Estimated days supply on hand: 10 Next cycle/dose due: 05/26/24 Copay amount: 0 Delivery method: FedEx Signature required: Waived on patient request Delivery address: [facility] Ervin Adams [address] [address] Delivery date: 06/01/24 Questions or concerns for [...] (FLONASE) 50 mcg/actuation nasal spray Use 1 Freedom in each nostril once daily. No current facility-administered medications on file prior to visit. [facility] Visit Assessment - [...] inject where skin looks healthy. Training video ([employer] no longer supplies nurses for training, or injection devices) PFS supplied and training video [email or web address]://www.[employer]/injectio n-assistance/eph-ss-hacdjn DDI none pertinent Vaccines reviewed Jus Saucedo CPhT Neurology, Cardiology & Infectious Disease [facility] documented in this encounter [facility] 05-24-2024 Note HNO ID: [id number] Author: MARCIN ERVIN [facility] Service: ? Author Type: ? Type: [...] markers and outcomes. Marcin Ervin, PharmD Pharmacist, [facility] Specialty Spa Consultant Assessment Patient confirmed: Yes Med/dose confirmed: Yes Supplies needed: Alcohol swabs Missed doses: No Estimated days supply on hand: 10 Next cycle/dose due: 05/26/24 Copay amount: 0 Delivery method: FedEx Signature required: Waived on patient request Delivery address: [address] [place], [place] [id number] Delivery date: 06/01/24 Questions or concerns for [...] (FLONASE) 50 mcg/actuation nasal spray Use 1 Freedom in each nostril once daily. No current facility-administered medications on file prior to visit. [facility] Visit Assessment - [...] inject where skin looks healthy. Training video ([employer] no longer supplies nurses for training, or injection devices) PFS supplied and training video https://www.[employer]/injectio n-assistance/trq-rs-swtxld DDI none pertinent Vaccines reviewed Refill Assessment: Assessment of injection issues or necrosis at injection sites: Yes Screening for infection: Yes Adverse reactions and mitigation: Yes Drug specific assessments, as appropriate: Yes Additional Assessment: S/Sx of relapse: No S/Sx of progression to secondary progressive disease: No (more content not included)... [facility] 05-10-2024 Note HNO ID: [id number] Author: IBAN LAZO, PhD Service: ? Author Type: Psychologist Type: Progress Notes Filed: 05/10/2024 14:16 Note Text: Appointment canceled. Pt logged on to visit but was located in a public setting and in the state of [place]. Explained that due to psychology licensure laws I cannot meet with patients unless they are physically located within the state of [place]. Pt stated she is returning to [place] on Wednesday 05/16. Next visit scheduled for 05/27. Iban Lazo, PhD, Psychologist ([place] license [id number]) [facility] 04-26-2024 History of Present illness Narrative [...] laboratory parameters, disease state markers and outcomes. Drawer In Dobby Loom Assessment Patient confirmed: Yes Med/dose confirmed: Yes Supplies needed: No supplies needed Missed doses: Yes Count of missed doses: 1 Reason for missed doses: stated medication misfired Estimated days supply on hand: 4 Next cycle/dose due: 04/26/24 Copay amount: 0 Payment confirmed: Yes Delivery method: FedEx Signature required: Waived on patient request Delivery address: [address] [place], [place] [id number] Delivery date: 04/28/24 Questions or concerns for [...] (FLONASE) 50 mcg/actuation nasal spray Use 1 Freedom in each nostril once daily. No current facility-administered medications on file prior to visit. [facility] Visit Assessment - [...] inject where skin looks healthy. Training video ([employer] no longer supplies nurses for training, or injection devices) PFS supplied and training video https://www.[employer]/injectio n-assistance/zko-zb-jvmqnk DDI none pertinent Vaccines reviewed Jazmine Mcclure CPhT Cardiology, Neurology & Infectious Disease [facility] documented in this encounter [facility] 04-26-2024 Note HNO ID: [id number] Author: MARCIN ERVIN RPh Service: ? Author [...] markers and outcomes. Marcin Ervin, PharmD Pharmacist, [facility] Specialty Spa Consultant Assessment Patient confirmed: Yes Med/dose confirmed: Yes Supplies needed: No supplies needed Missed doses: Yes Count of missed doses: 1 Reason for missed doses: stated medication misfired Estimated days supply on hand: 4 Next cycle/dose due: 04/26/24 Copay amount: 0 Payment confirmed: Yes Delivery method: FedEx Signature required: Waived on patient request Delivery address: [address] [place] [address] Delivery date: 04/28/24 Questions or concerns for [...] (FLONASE) 50 mcg/actuation nasal spray Use 1 Freedom in each nostril once daily. No current facility-administered medications on file prior to visit. [facility] Visit Assessment - [...] inject where skin looks healthy. Training video ([employer] no longer supplies nurses for training, or injection devices) PFS supplied and training video https://www.[employer]/injectio n-assistance/nxr-eo-jwidem DDI none pertinent Vaccines reviewed Refill Assessment: Assessment of injection issues or necrosis at injection sites: Yes Screening for infection: Yes Adverse reactions and mitigation: Yes Drug specific assessments, as appropriate: Yes Additional Assessment: Current MPR%: 100 S/Sx of relapse: No S/Sx of progression to secondary progressive disease: (more content not included)... [facility] 04-20-2024 Note HNO ID: [id number] Author: IBAN LAZO, PhD Service: ? Author Type: Psychologist Type: Progress Notes Filed: 04/21/2024 12:27 Note Text: Behavioral Sleep Medicine Follow up Iban Lazo, PhD I have communicated my name and active licensure. The patient's identity and physical location were verified at the time of this visit. Either the patient or their legal brewery representative has been informed of the risks and benefits of -- and alternatives to -- treatment through a remote evaluation and consents to proceed with the evaluation remotely. 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 6. (more content not included)... [facility] 03-31-2024 History of Present illness Narrative [facility] received prescription(s) for Glatiramer from Dr. Tor Hernandez office. Benefits investigation was conducted, indicating we will need to call to verify if a prior authorization is required/needed by pt's plan with [employer] . Thang Santana CPhT (Dee) [facility] Neurology/Cardiology/Infections Disease [facility] P: F: PA for pt's Glatiramer has been approved by [employer]. Ael[employer]is 03/31/24 - 11/09/24. [facility] Spa Consultant, Specialty Pharmacy [facility] [address] / [id number] [place] [address] Email: [email or web address] documented in this encounter [facility] 03-31-2024 Note HNO ID: [id number] Author: ?, ?, ? Service: ? Author Type: ? Type: Progress Notes Filed: 03/31/2024 10:57 Note Text: [facility] received prescription(s) for Glatiramer from Dr. Tor Hernandez office. Benefits investigation was conducted, indicating we will need to call to verify if a prior authorization is required/needed by pt's plan with [employer] . Thang Floriane) Ross, gas refrigerator servicer Lead Tech Neurology/Cardiology/Infections Disease [facility] P: F: [facility] 03-31-2024 Note HNO ID: [id number] Author: ?, ?, ? Service: ? Author Type: ? Type: Progress Notes Filed: 03/31/2024 12:24 Note Text: PA for pt's Glatiramer has been approved by [employer]. Alexis 03/31/24 - 11/09/24. [facility] Spa Consultant, Specialty Pharmacy [facility] [address] / [id number] [place] [address] Email: [email or web address] [facility] 03-31-2024 Note HNO ID: [id number] Author: NATALIE NEWBERRY RPh Service: ? Author Type: Pharmacist Type: Progress Notes Filed: 04/08/2024 11:37 Note Text: [facility] received prescription(s) for Glatiramer from Dr. Warren's office. Benefits investigation was conducted, indicating that a prior authorization is required. PA was approved with details listed below: Plan Name: Sherri GRIGGS reference number: [id number] Approval Dates: 03/31/24 to 11/09/24 Pt's copay [...] MD No Neurogenic bladder 07/14/2020 Nikole Moe APRN.SYSTEMS ADMINISTRATOR No Overview Signed 04/17/2021 7:30 AM by Nikole Moe APRN.SYSTEMS ADMINISTRATOR On most recent creatinine was normal. Will obtain renal ultrasound at her convenience to assess for any upper tract changes On most recent creatinine was normal. Will obtain renal ultrasound at her convenience to assess for any upper tract changes Chronic insomnia 01/04/2020 Iesha Pearson MD No Multiple sclerosis (HCC) 11/15/2019 Nidia Garcia MD No Optic neuritis 08/21/2019 Nikole Moe APRN.SYSTEMS ADMINISTRATOR No Overview Signed 04/17/2021 7:30 AM by Nikole Moe APRN.SYSTEMS ADMINISTRATOR Start Date: 03/2009 Start Date: 03/2009 Bilateral hearing loss 07/14/2018 Nikole Moe APRN.SYSTEMS ADMINISTRATOR No Ovarian cyst, complex 04/14/2018 Nikole Moe APRN.SYSTEMS ADMINISTRATOR No Ovarian torsion 04/14/2018 Nikole Moe APRN.SYSTEMS ADMINISTRATOR No Restless leg syndrome 07/28/2017 Nikole Moe APRN.SYSTEMS ADMINISTRATOR No Cognitive communication deficit 07/22/2022 Amina Vazquez, CCC-RN COMPLIANCE 07/17/[address] MD Costochondritis, acute 04/17/2021 Nikole Moe APRN.SYSTEMS ADMINISTRATOR 04/20/2021 Nikole Moe, PROFESSOR OF NURSING.SYSTEMS ADMINISTRATOR Edema of lower extremity 04/17/2021 Nikole Moe, PROFESSOR OF NURSING.SYSTEMS ADMINISTRATOR 04/20/2021 Nikole Moe, PROFESSOR OF NURSING.SYSTEMS ADMINISTRATOR Hypoglycemia 03/07/2021 Nikole Moe, PROFESSOR OF NURSING.SYSTEMS ADMINISTRATOR 07/17/[address] MD NO SHOW 01/22/2021 Lala Forman, DO 04/17/2021 Nikole Moe, PROFESSOR OF NURSING.SYSTEMS ADMINISTRATOR Encounter for induction of labor 01/08/2021 Subha [...] Jo-Ann Aragon MD Constipation 10/06/2019 Nikole Moe, PROFESSOR OF NURSING.SYSTEMS ADMINISTRATOR 07/17/[address] MD Gait difficulty 10/06/2019 Nikole Moe, PROFESSOR OF NURSING.SYSTEMS ADMINISTRATOR 07/17/[address] MD Cognitive complaints 03/03/2019 Nikole Moe, PROFESSOR OF NURSING.SYSTEMS ADMINISTRATOR 07/17/[address] MD Syncope and collapse 12/04/2018 Nikole Moe APRN.SYSTEMS ADMINISTRATOR 07/17/[address] MD Obstructive sleep apnea 07/28/2017 Payal, (more content not included)... [facility] 03-30-2024 Note HNO ID: [id number] Author: ROXY HOGAN PSYD Service: ? Author Type: Resident Type: Progress Notes Filed: 04/01/2024 10:51 Note Text: [facility]IOR[facility] SLEEP [facility]IC[facility] CBT-[facility]iate Virtual Group March 30, 2024 Time: 3-4:05pm [id number]: Virtual Group Psychotherapy Providers: Teo I have communicated my name and active licensure. The patient's identity and physical location were verified at the time of this visit. Either the patient or their legal brewery representative has been informed of the risks [...] transcribed by Iris Yoon, PhD BSM Fellow [facility] 03-30-2024 Note HNO ID: [id number] Author: CLARICE ZEPEDA HUC Service: ? Author Type: Health Reporting Developer Type: Progress Notes Filed: 03/30/2024 14:55 Note Text: Faxed Glatiramer Acetate form with ins info [facility] 03-30-2024 History of Present illness Narrative Faxed Glatiramer Acetate form with ins info documented in this encounter [facility] 03-30-2024 Instructions Tor Hernandez APRN.CNP - 03/30/2024 2:27 PM EDT PLAN: - Stop Ocrevus for now - Will hold on further MRI monitoring for now - Will submit for Copaxone during - Stop Ampyra and tizanidine - Continue vitamin D and magnesium - Follow up in 8-9 months virtually documented in this encounter [facility] 03-30-2024 History of Present illness Narrative Images from the original note were not included. [facility] FOLLOWUP/ESTABLISHED VIRTUAL PATIENT VISIT PRINCIPAL NEUROLOGIC DIAGNOSIS: Multiple Sclerosis DISEASE SUMMARY Date of onset: 03/2007 Date of diagnosis of MS: 03/2007 Disease course at onset: Relapsing-Remitting Current disease course: Progressive without relapses Previous disease therapies: - Betaseron 2240-6761 - Copaxone 9274-0167 - Tysabri 2009-Summer 2019 (stopped due to [...] over 3 weeks following occipital relase - 3640-1986 recurrent OS ON - 5887-6265 several relapses including L numbness, weakness, constipation, urinary urgency - 2020 R weakness and numbness needing a wheelchair, hospitalized at [facility] (off Tysabri x3 months due to planning ). Also had OD vision loss at this time. At this time also notes substantial mold exposure due to it being all over her apt (has since moved). CHIEF COMPLAINT: Follow up, discussion on recent + Usual treating team: Esther/David Today's visit is being completed virtually over [employer]. I have communicated my name and active licensure. The patient's identity and physical location were verified at the time of this visit. Either the patient or their legal brewery representative has been informed of the risks [...] to that Is trying to find a health and safety trainer as she knows she needs to improve her strength Last took Copaxone and felt good Would like to continue Copaxone again this - will need her home health clinician to administer injections Does plan to breastfeed after this Recalls her MS symptoms were stable until ~ 3 months pp Neuro-QoL Functions (higher=better functioning) Flowsheet Row Social Work from 01/21/[address] [facility] Office Visit from 07/23/[address] [facility] Office Visit from 01/17/[address] [facility] Upper Extremity Domain T Score 28 [...] Row Social Work from 01/21/[address] [facility] Office Visit from 07/23/[address] [facility] Office Visit from 01/17/[address] [facility] Sleep Domain T Score 66 69.2 [...] Edema of lower extremity (04/17/2021), Multiple sclerosis ([facility]), Seizure ([facility]), and Thyroid disease. She has no past medical history of Asthma, Blood dyscrasia, Breast disorder, Chlamydia, Chronic kidney disease, Complication of anesthesia, Coronary artery disease, Diabetes ([facility]), Diabetes, gestational, Gonorrhea, Herpes simplex virus (HSV) infection, History of pre-eclampsia in prior , currently , HIV infection ([facility]), Hypertension, Infertility, female, Liver disease, Malignant hyperthermia due to anesthesia, Mental disorder, Placental abruption, depression, hemorrhage, Rh incompatibility, Sickle cell anemia ([facility]), Syphilis, or Systemic lupus erythematosus ([facility]). has a current medication list which includes the following prescription(s): ketoconazole, ferrous sulfate, ketoconazole, melatonin, fluticasone, magnesium oxide, polyethylene glycol 3350, cholecalciferol, mirtazapine, norethindrone (contraceptive), vitamin b complex with c-fa-cu-zn renal vitamins, multiple vitamin-minerals, dalfampridine er, norethindrone (contraceptive), tizanidine, ocrelizumab, and vitamin b complex. EXAM: LMP 12/21/2023 (Exact Date) Multiple Sclerosis Performance Test Flowsheet [place] [facility] Office Visit from 07/23/[address] [facility] Office Visit from 01/17/[address] [facility] Processing Speed Total Number Correct 52 [...] D supplementation Follow-up: In 9 months at [place] or Virtual Visit with [facility] I spent a total of 40 minutes on the date of the service which included preparing to see the patient, [id number] patient care, completing clinical documentation, obtaining and/or reviewing separately obtained history, performing a medically appropriate examination, counseling and educating the patient/family/caregiver, and ordering medications, tests, or procedures. Tor Hernandez APRN.CNP [facility] documented in this encounter [facility] 03-30-2024 Note HNO ID: [id number] Author: TOR HERNANDEZ APRN.CNP Service: ? Author Type: Nurse Practitioner Type: Progress Notes Filed: 03/30/2024 14:27 Note Text: [facility] FOLLOWUP/ESTABLISHED VIRTUAL PATIENT VISIT PRINCIPAL NEUROLOGIC DIAGNOSIS: Multiple Sclerosis DISEASE SUMMARY Date of onset: 03/2007 Date of diagnosis of MS: 03/2007 Disease course at onset: Relapsing-Remitting Current disease course: Progressive without relapses Previous disease therapies: - Betaseron [id number] - Copaxone - Tysabri 2009-Summer 2019 (stopped [...] over 3 weeks following occipital relase - 3607-5789 recurrent OS ON - 4132-9413 several relapses including L numbness, weakness, constipation, urinary urgency - 2019 R weakness and numbness needing a wheelchair, hospitalized at [facility] (off Tysabri x3 months due to planning ). Also had OD vision loss at this time. At this time also notes substantial mold exposure due to it being all over her apt (has since moved). CHIEF COMPLAINT: Follow up, discussion on recent + Usual treating team: Christina Today's visit is being completed virtually over [employer]. I have communicated my name and active licensure. The patient's identity and physical location were verified at the time of this visit. Either the patient or their legal brewery representative has been informed of the risks [...] unintentional, was on control and reports compliance DANIA 12/29/23, thinks last period was end of January/early February Overall feeling well from symptom perspective Still processing emotionally but is thankful Home care was not able to continue as she was able to leave the house to take her child to school Is no longer receiving therapy due to that Is trying to find a health and safety trainer as she knows she needs to improve her strength Last took Copaxone and felt good Would like to continue Copaxone again this - will need her home health clinician to administer injections Does plan to breastfeed after this Recalls her MS symptoms were stable until ~ 3 months pp Neuro-QoL Functions (higher=better functioning) Flowsheet Row Social Work from 01/21/[address] [facility] Office Visit from 07/23/[address] [facility] Office Visit from 01/17/[address] [facility] Upper Extremity Domain T Score 28 [...] Row Social Work from 01/21/[address] [facility] Office Visit from 07/23/[address] [facility] Office Visit from 01/17/[address] [facility] Sleep Domain T Score 66 69.2 [...] Edema of lower extremity (04/17/2021), Multiple sclerosis ([facility]), Seizure ([facility]), and Thyroid disease. She has no past medical history of Asthma, Blood dyscrasia, Breast disorder, Chlamydia, Chronic kidney disease, Complication of anesthesia, Coronary artery disease, Diabetes ([facility]), Diabetes, gestational, Gonorrhea, Herpes simplex virus (HSV) infection, History of pre-eclampsia in prior , currently , HIV infection ([facility]), Hypertension, Infertility, female, Liver disease, Malignant hyperthermia due to anesthesia, Mental disorder, Placental abruption, depression, hemorrhage, Rh incompatibility, Sickle cell anemia ([facility]), Syphilis, or Systemic lupus erythematosus ([facility]). has a current medication list which includes the following prescription(s): ketoconazole, ferrous sulfate, ketoconazole, melatonin, fluticasone, magnesium oxide, polyethylene glycol 3350, cholecalciferol, mirtazapine, norethindrone (contraceptive), vitamin b (more content not included)... [facility] 03-24-2024 Telephone encounter Note Patient calls to cancel her Ocrevus infusion scheduled for Friday due to having a positive test stating she doesn't believe she can receive this infusion while . Appointment cancelled. Viviana Sands [facility] 03-24-2024 Miscellaneous Notes Patient calls to cancel her Ocrevus infusion scheduled for Friday due to having a positive test stating she doesn't believe she can receive this infusion while . Appointment cancelled. Viviana Sands documented in this encounter [facility] 03-22-2024 Instructions Ayan Marie APRN.CNP - 03/22/2024 2:44 PM EDT Contact information for sleep disorders center: For questions regarding your care call [phone] option X 5 To schedule an appointment with the sleep center call [phone] RLS treatment: Start magnesium supplements (500mg-1000mg daily). [...] and physical conditioning documented in this encounter [facility] 03-22-2024 History of Present illness Narrative Images from the original note were not included. [facility] Sleep Disorders Center Follow up/ [...] which included preparing to see the patient, [id number] patient care, completing clinical documentation, counseling and educating the patient/family/caregiver, and ordering medications, tests, or procedures. Germania Wilkinson MD I have communicated my name and active licensure. The patient's identity and physical location were verified at the time of this visit. Either the patient or their legal brewery representative has been informed of the risks [...] Abnormal behaviors/movements during sleep 01/03/2020 08/11/2023 03/19/2024 Thomson Sleepiness Scale Score 0 (No clinically significant [...] (FLONASE) 50 mcg/actuation nasal spray Use 1 Freedom in each nostril once daily. PHYSICAL EXAMINATION: [...] with Dr Wilkinson scheduled 06/08/24. Ayan Marie APRN.SYSTEMS ADMINISTRATOR Activity Duration Chart accessed < 1 minute Chart accessed 15 minutes Chart accessed 2 minutes Chart accessed 1 minute Chart accessed 2 minutes Chart accessed < 1 minute Total time: 22 minutes documented in this encounter [facility] 03-22-2024 Note HNO ID: [id number] Author: AYAN MARIE APRN.TREE Service: ? Author Type: Nurse Practitioner Type: Progress Notes Filed: 03/25/2024 20:46 Note Text: [facility] Sleep Disorders Center Follow up/ [...] which included preparing to see the patient, [id number]-vm-siyp patient care, completing clinical documentation, counseling and educating the patient/family/caregiver, and ordering medications, tests, or procedures. Germania Wilkinson MD I have communicated my name and active licensure. The patient's identity and physical location were verified at the time of this visit. Either the patient or their legal brewery representative has been informed of the risks [...] jerks for several (more content not included)... [facility] 03-19-2024 Note HNO ID: [id number] Author: IBAN LAZO, PhD Service: ? Author Type: Psychologist Type: Progress Notes Filed: 03/19/2024 13:04 Note Text: Behavioral Sleep Medicine Consult Psychological Evaluation [address]142 Patient was seen for an initial evaluation. [...] visit. Either the patient or their legal brewery representative has been informed of the risks and benefits of -- and alternatives to -- treatment through a remote evaluation and consents to proceed with the evaluation remotely. Contact Method: Zoom Patient Confirmed Address: [address] [place] [address] Patient Confirmed Telephone #: [phone] Carol Ann Martinez is a 38 year old year old female who presents for a BSM evaluation for insomnia, referred by [facility] Sleep Disorders Physician - Dr. Wilkinson [...] evaluated by Behavioral Sleep Medicine at the [facility]. Completed intake visit with Dr. [...] (FLONASE) 50 mcg/actuation nasal spray Use 1 Freedom in each nostril once daily. No current [...] and uses ph (more content not included)... [facility] 03-04-2024 Note HNO ID: [id number] Author: BELLE HANCOCK RT(R) Service: ? Author [...] PATIENT PRESENTS WITH AN IMPLANTABLE OR ATTACHED FIBER LOCKING SUPERVISOR: No RADIOLOGY DEPARTMENT: General X-ray: Exam(s) Completed: Spine X-Ray(s): Cervical AP / LAT / OBL and Lumbar AP / LAT / L5-S1 PERIPHERAL IV DATA: Not applicable SIGNED BY: RT Keysha(R) March 04, 2024 2:06 PM [facility] 03-04-2024 History of Present illness Narrative Radiology Service Progress Note PATIENT NAME: Carol Ann Martinze DATE OF SERVICE: March 04, 2024 TIME: [...] PATIENT PRESENTS WITH AN IMPLANTABLE OR ATTACHED FIBER LOCKING SUPERVISOR: No RADIOLOGY DEPARTMENT: General X-ray: Exam(s) Completed: Spine X-Ray(s): Cervical AP / LAT / OBL and Lumbar AP / LAT / L5-S1 PERIPHERAL IV DATA: Not applicable SIGNED BY: RT Keysha(R) March 04, 2024 2:06 PM documented in this encounter [facility] 03-04-2024 Note HNO ID: [id number] Author: JANICE LANE MD Service: ? Author [...] as scheduled for next physical. Patient Instructions [facility] LAB FACTS Please visit our lab at least 3-5 days before your scheduled appointment to have your lab work drawn, if lab work is ordered. This will allow us the ability to review your lab work results with you during your scheduled visit. [facility] HOURS: Lab is open Friday - Friday from 6:30am to 5pm and open 8am -12pm on Saturdays. [facility] HOURS: Friday- 7:30am to 5:30pm. Fridays [...] medicine, or pediatrics at any of our [facility] locations and main campus. Janice Lane MD [facility] 03-04-2024 History of Present illness Narrative [...] as scheduled for next physical. Patient Instructions [facility] LAB FACTS Please visit our lab at least 3-5 days before your scheduled appointment to have your lab work drawn, if lab work is ordered. This will allow us the ability to review your lab work results with you during your scheduled visit. [facility]RS: Lab is open Friday - Friday from 6:30am to 5pm and open 8am -12pm on Saturdays. [facility] HOU[facility]: Friday- 7:30am to 5:30pm. Fridays [...] medicine, or pediatrics at any of our [facility] locations and main campus. Janice Lane MD documented in this encounter [facility] 03-04-2024 Instructions Cintia Cadena MA - 03/04/2024 1:00 PM EDT [facility] LAB FACTS Please visit our lab at least 3-5 days before your scheduled appointment to have your lab work drawn, if lab work is ordered. This will allow us the ability to review your lab work results with you during your scheduled visit. [facility] HOURS: Lab is open Friday - Friday from 6:30am to 5pm and open 8am -12pm on Saturdays. [facility] HOURS: 7:30am to 5:30pm. Fridays 7:30-5:00pm and Friday [...] medicine, or pediatrics at any of our [facility] locations and main campus. documented in this encounter [facility] 02-26-2024 Miscellaneous Notes Addended by: TOR HERNANDEZ on: 02/26/2024 10:24 AM Modules accepted: Orders Non-CCF PT, OT, and RN COMPLIANCE orders placed Tor Hernandez APRN.CNP February 26, 2024 10:23 AM Spoke with Cassiayunior Urrutia CM, [employer]ris [employer] regarding this message. Iris stated she encouraged pt to reach out to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 STEM W/O W/CONTRAST MATERIAL Nesha Santana MD [address] [place] [phone] [facility] [place] [address] Referral ID Status Reason Start Date Expiration Date V isits Requested Visits Authorized [id number] Closed Auto-Generate d Referral 02/05/2023 12/07/2023 1 1 Specialty Diagnoses / Procedures Referred By Contac t Referred To Contact MR IMAGING Diagnoses Multiple sclerosis (HCC) Procedures MRI CERVICAL SPINE WO/W IVCON MRI SPINAL CANAL CERVICAL W/O & W/CONTR MATRL Marshall Hanley MD, PhD [address] [place] [phone] Mr [facility] [place] [address] Referral ID Status Reason Start Date Expiration Date V isits Requested Visits Authorized [id number] Closed Auto-Generate d Referral 07/18/2022 08/17/2022 1 1 Specialty Diagnoses / Procedures Referred By Contac t Referred To Contact MR IMAGING Diagnoses Multiple sclerosis (HCC) Procedures MRI BRAIN WO/W IVCON MRI BRAIN BRAIN STEM W/O W/CONTRAST MATERIAL Marshall Hanley MD, PhD [address] [facility] [place] [address] Mr Imaging [place] [address] Referral ID Status Reason Start Date Expiration Date V isits Requested Visits Authorized [id number] Closed Auto-Generate d Referral 07/18/2022 08/17/2022 1 1 Specialty Diagnoses / Procedures Referred By [place] Referred To Contact MR IMAGING Diagnoses Multiple sclerosis (HCC) Procedures MRI THORACIC SPINE WO/W IVCON MRI SPINAL CANAL THORACIC W/O & W/CONTR Marshall Beltrán MD, PhD [address] [place] [phone] Mr Imaging [facility] Referral ID Status Reason Start Date Expiration Date V isits Requested Visits Authorized [id number] Closed Auto-Generate d Referral 07/18/2022 08/17/2022 1 [...] transabdominal approach Clarke Hu DO [address] [facility] [address], [place] [address] Referral ID Status Reason Start Date Expiration Date Visits Requested Visits Authorized [id number] Pending Review Perform Procedure 07/02/2024 07/02/2025 1 1 Reason Comments Orders OTC-Nutritional Supp l Reason Comments Eye Discharge Both Eyes Fatigue Reason Comments PT Eval Patient Education Specialty Diagnoses / Procedures Referred By [place] Referred To Contact PHYSICAL THERAPY Diagnoses Right hip pain Multiple sclerosis (HCC) Procedures CONSULT TO PHYSICAL THERAPY PHYSICAL THERAPY EVALUATION HIGH COMPLEX [address] MD [address] [place] [address] [employer] [address] [place] [address] Referral ID Status Reason Start Date Expiration Date V isits Requested Visits Authorized [id number] Closed Auto-Generate d Referral 11/10/2023 11/09/2024 1 1 Reason Onset Date Comments SPP Neurology - Medication Refill 09/20/2024 Glatiramer Reason Comments Physical Therapy Specialty Diagnoses / Procedures Referred By Contac t Referred To Contact PHYSICAL THERAPY Diagnoses Right hip pain Procedures PT REHAB FOLLOW UP ORDER THERAPEUTIC EXERCISES RE, EA 15 MIN. Estrlela Sorto, PT, DPT [address] [place] [address] [employer] [address] [place] [address] Referral ID Status Reason Start Date Expiration Date Visits Requested Visits Authorized [id number] Authorized PCP Requested Referral Auto-Generate d Referral 4 11/09/2024 4 4 Reason Comments Patient Education Assessment Specialty Diagnoses / Procedures Referred By Contac t Referred To Contact Nutrition Diagnoses Multiple sclerosis (HCC) Procedures CONSULT TO NUTRITION THERAPY MEDICAL NUTRITION ASSMT&IVNTJ INDIV EACH 15 MT Tor Hernandez, CYNTHIA.SYSTEMS ADMINISTRATOR [address] [place] [address] Referral ID Status Reason Start Date Expiration Date Visits Requested Visits Authorized [id number] Authorized PCP Requested Referral 4 09/06/2025 1 4 Reason Comments PT Discharge Care Teams (unrecognized sec tion and content) Team Status: Active Member Role Status Dates Janice Lane MD Primary Care Provider Active Team Status: Inactive Member Role Status Dates Janice Lane MD Primary Care Provider Active Start: November 28, 2023 End: November 28, 2023 Clarke Hu Attending Provider Active Start: Dmitri brown 2023 End: November 28, 2023 Copper Tapper Relationship Specialty Start Date End Date Janice Lane MD [address] [place] [address] PCP - General Family Practice 12/09/19 Copper Tapper Relationship Specialty Start Date End Date Janice Lane MD [address] [place] [address], [place] [address] PCP - General Family Practice 12/09/19 Team Status: Inactive Member Role Status Dates Vishal Agarwal , Emergency Provider Active Janice Lane MD Primary Care Provider Active Copper Tapper Relationship Specialty Start Date End Date Janice Lane MD [address] [place] [address], [place] [address] PCP - General Family Practice 12/09/19 Copper Tapper Relationship Specialty Start Date End Date Janice Lane MD [address] [place] [address], [place] [address] PCP - General Family Practice 12/09/19 Copper Tapper Relationship Specialty Start Date End Date Janice Lane MD [address] [place] [address], [place] [address] PCP - General Family Practice 12/09/19 Copper Tapper Relationship Specialty Start Date End Date Janice Lane MD [address] [place] [address], [place] [address] PCP - General Family Practice 12/09/19 Copper Tapper Relationship Specialty Start Date End Date Janice Lane MD [address] [place] [address], [place] [address] PCP - General Family Practice 12/09/19 Copper Tapper Relationship Specialty Start Date End Date Janice Lane MD [address] [place], [place] [address] [place] [address] PCP - General Family Practice 12/09/19 Copper Tapper Relationship Specialty Start Date End Date Janice Lane MD [address] [place] [address], [place] [address] PCP - General Family Practice 12/09/19 Copper Tapper Relationship Specialty Start Date End Date Janice Lane MD [address] [place] [address], [place] [address] PCP - General Family Practice 12/09/19 Copper Tapper Relationship Specialty Start Date End Date Janice Lane MD [address] [place] [address], [place] [address] PCP - General Family Practice 12/09/19 Copper Tapper Relationship Specialty Start Date End Date Janice Lane MD [address] [place] [address] PCP - General Family Medicine 12/09/19 Copper Tapper Relationship Specialty Start Date End Date Janice Lane MD [address] [place] [address], [place] [address] PCP - General Family Medicine 12/09/19 Copper Tapper Relationship Specialty Start Date End Date Janice Lane MD [address] [place] [address], [place] [address] PCP - General Family Medicine 12/09/19 Copper Tapper Relationship Specialty Start Date End Date Janice Lane MD [address] [place] [address], [place] [address] PCP - General Family Medicine 12/09/19 Copper Tapper Relationship Specialty Start Date End Date Janice Lane MD [address] [place] [address], [place] [address] PCP - General Family Medicine 12/09/19 Copper Tapper Relationship Specialty Start Date End Date Janice Lane MD [address] [place] [address], [place] [address] PCP - General Family Medicine 12/09/19 Copper Tapper Relationship Specialty Start Date End Date Janice Lane MD [address] [place] [address], [place] [address] PCP - General Family Medicine 12/09/19 Team Status: Inactive Member Role Status Dates Janice Lane MD Primary Care Provider Active Vishal Agarwal DO Emergency Provider Active Copper Tapper Relationship Specialty Start Date End Date Janice Lane MD [address] [place] [address], [place] [address] PCP - General Family Medicine 12/09/19 Copper Tapper Relationship Specialty Start Date End Date Janice Lane MD [address] [place] [address], [place] [address] PCP - General Family Medicine 12/09/19 Copper Tapper Relationship Specialty Start Date End Date Janice Lane MD [address] [place] [address], [place] [address] PCP - General Family Medicine 12/09/19 Copper Tapper Relationship Specialty Start Date End Date Janice Lane MD [address] [place] [address], [place] [address] PCP - General Family Medicine 12/09/19 Copper Tapper Relationship Specialty Start Date End Date Janice Lane MD [address] [place] [address], [place] [address] PCP - General Family Medicine 12/09/19 Copper Tapper Relationship Specialty Start Date End Date Janice Lane MD [address] [place] [address], [place] [address] PCP - General Family Medicine 12/09/19 Copper Tapper Relationship Specialty Start Date End Date Rima, Janice M, MD [address] [facility] [place] [address] PCP - General Family Medicine 12/09/19 Copper Tapper Relationship Specialty Start Date End Date Janice Lane MD [address] [facility] [place] [address] PCP - General Family Medicine 12/09/19 Copper Tapper Relationship Specialty Start Date End Date Janice Lane MD [address] [facility] [place] [address] PCP - General Family Medicine 12/09/19 Copper Tapper Relationship Specialty Start Date End Date Janice Lane MD [address] [facility] [place] [address] PCP - General Family Medicine 12/09/19 Copper Tapper Relationship Specialty Start Date End Date Janice Lane MD [address] [facility] [place] [address] PCP - General Family Medicine 12/09/19 Copper Tapper Relationship Specialty Start Date End Date Janice Lane MD [address] [facility] [place] [address] PCP - General Family Medicine 12/09/19 Copper Tapper Relationship Specialty Start Date End Date Janice Lane MD [address] [facility] [place] [address] PCP - General Family Medicine 12/09/19 Copper Tapper Relationship Specialty Start Date End Date Janice Lane MD [address] [facility] [place] [address] PCP - General Family Medicine 12/09/19 Copper Tapper Relationship Specialty Start Date End Date Janice Lane MD [address] [facility] [place] [address] PCP - General Family Medicine 12/09/19 Copper Tapper Relationship Specialty Start Date End Date Janice Lane MD [address] [facility] [place] [address] PCP - General Family Medicine 12/09/19 Copper Tapper Relationship Specialty Start Date End Date Janice Lane MD [address] [facility] [place] [address] PCP - General Family Medicine 12/09/19 Copper Tapper Relationship Specialty Start Date End Date Janice Lane MD [address] [facility] [place] [address] PCP - General Family Medicine 12/09/19 Copper Tapper Relationship Specialty [place] [address] [place] [address] PCP - General Pediatrics 10/26/23 Copper Tapper Relationship Specialty [place] [address] [place] [address] PCP - General Pediatrics 10/26/23 Copper Tapper Relationship Specialty Start Date End Date Janice Lane MD [address] [facility] [place] [address] PCP - General Family Medicine 12/09/19 Copper Tapper Relationship Specialty Start Date End Date Janice Lane MD [address] [facility] [place] [address] PCP - General Family Medicine 12/09/19 Copper Tapper Relationship Specialty Start Date End Date Janice Lane MD [address] [facility] [place] [address] PCP - General Family Medicine 12/09/19 Copper Tapper Relationship Specialty Start Date End Date Janice Lane MD [address] [facility] [place] [address] PCP - General Family Medicine 12/09/19 Copper Tapper Relationship Specialty Start Date End Date Janice Lane MD [address] [facility] [place] [address] PCP - General Family Medicine 12/09/19 Copper Tapper Relationship Specialty Start Date End Date Janice Lane MD [address] [facility] [place] [address] PCP - General Family Medicine 12/09/19 Copper Tapper Relationship Specialty Start Date End Date Janice Lane MD [address] [facility] [place] [address] PCP - General Family Medicine 12/09/19 Team Status: Inactive Member Role Status Dates Janice Lane MD Primary Care Provider Active Start: February 24, 2024 End: February 24, 2024 Clarke Hu Attending Provider Active Start: [facility] 2023 End: February 24, 2024 Copper Tapper Relationship Specialty Start Date End Date Janice Lane MD [address] [facility] [place] [address] PCP - General Family Medicine 12/09/19 Team Status: Inactive Member Role Status Dates Janice Lane MD Primary Care Provider Active Start: March 17, 2024 End: March 17, 2024 Clarke Hu Attending Provider Active Start: [facility] 2023 End: March 17, 2024 Copper Tapper Relationship Specialty Start Date End Date Janice Lane MD [address] [facility] [place] [address] PCP - General Family Medicine 12/09/19 Copper Tapper Relationship Specialty Start Date End Date Janice Lane MD [address] [facility] [place] [address] PCP - General Family Medicine 12/09/19 Copper Tapper Relationship Specialty Start Date End Date Janice Lane MD [address] [facility] [place] [address] PCP - General Family Medicine 12/09/19 Copper Tapper Relationship Specialty Start Date End Date Janice Lane MD [address] [facility] [place] [address] PCP - General Family Medicine 12/09/19 [facility] Copper Tapper Relationship Specialty Start Date End Date Janice Lane MD [address] [facility] [place] [address] PCP - General Family Medicine 12/09/19 [facility]24 Copper Tapper Relationship Specialty Start Date End Date Janice Lane MD [address] [facility] [place] [address] PCP - General Family Medicine 12/09/19 [facility]24 Copper Tapper Relationship Specialty Start Date End Date Janice Lane MD [address] [facility] [place] [address] PCP - General Family Medicine 12/09/19 [facility]24 Copper Tapper Relationship Specialty Start Date End Date Janice Lane MD [address] [facility] [place] [address] PCP - General Family Medicine 12/09/19 [facility]24 Copper Tapper Relationship Specialty Start Date End Date Janice Lane MD [address] [facility] [place] [address] PCP - General Family Medicine 12/09/19 [facility]/24 Copper Tapper Relationship Specialty Start Date End Date Janice Lane MD [address] [facility] [place] [address] PCP - General Family Medicine 12/09/19 Copper Tapper Relationship Specialty Start Date End Date Janice Lane MD [address] [facility] [place] [address] PCP - General Family Medicine 12/09/19 Marcin Ervin, [facility] 05/30/24 Copper Tapper Relationship Specialty Start Date End Date Janice Lane MD [address] [facility] [place] [address] PCP - General Family Medicine 12/09/19 Copper Tapper Relationship Specialty Start Date End Date Janice Lane MD [address] [place] [address] PCP - General Family Medicine 12/09/19 Copper Tapper Relationship Specialty Start Date End Date Janice Lane MD [address] [place] [address] PCP - General Family Medicine 12/09/19 Copper Tapper Relationship Specialty Start [place] [address] [place] [address] PCP - General Pediatrics 10/26/23 Copper Tapper Relationship Specialty Start Date End Date Janice Lane MD [address] [place] [address] PCP - General Family Medicine 12/09/19 Marcin Ervin, [facility] 05/30/24 Copper Tapper Relationship Specialty [place] [address] [place] [address] PCP - General 12/13/19 Nataly Tripathi, CYNTHIA-SYSTEMS ADMINISTRATOR [address] [place] [address] Staffing Operations Manager Obstetrics 06/16/24 Copper Tapper Relationship Specialty [place] [address] [place] [address] PCP - General 12/13/19 Nataly Tripathi, PROFESSOR OF NURSING-SYSTEMS ADMINISTRATOR [address] [place] [address] Staffing Operations Manager Obstetrics 06/16/24 Copper Tapper Relationship Specialty Start Date End Date Janice Lane MD [address] [place] [address] PCP - General Family Medicine 12/09/19 Marcin Ervin [facility] 05/30/24 Copper Tapper Relationship Specialty Start [place] [address] [place] [address] PCP - General Pediatrics 10/26/23 Copper Tapper Relationship Specialty Start Date End Date Janice Lane MD [address] [place] [address] PCP - General Family Medicine 12/09/19 [facility] Copper Tapper Relationship Specialty Start Date End Date Janice Lane MD [address] [facility] [place] [address] PCP - General Family Medicine 12/09/19 Marcin Ervin, [facility] 05/30/24 Copper Tapper Relationship Specialty [place] [address] [place] [address] PCP - General Pediatrics 10/26/23 Copper Tapper Relationship Specialty [place] [address] [place] [address] PCP - General 12/13/19 Nataly Tripathi, PROFESSOR OF NURSING-SYSTEMS ADMINISTRATOR [address] [place] [address] Staffing Operations Manager Obstetrics 06/16/24 Copper Tapper Relationship Specialty [place] [address] [place] [address] PCP - General Pediatrics 10/26/23 Copper Tapper Relationship Specialty Start [place] [address] [place] [address] PCP - General Pediatrics 10/26/23 Copper Tapper Relationship Specialty [place] [address] [place] [address] PCP - General Pediatrics 10/26/23 Copper Tapper Relationship Specialty [place] [address] [place] [address] PCP - General Pediatrics 10/26/23 Copper Tapper Relationship Specialty [place] [address] [place] [address] PCP - General 12/13/19 Nataly Tripathi, PROFESSOR OF NURSING-SYSTEMS ADMINISTRATOR [address] [place] [address] Staffing Operations Manager Obstetrics 06/16/24 Goals (unrecognized section and content) [...] BE BASED ON THE PRIMARY CLINICAL RECORDS. [facility] [employer] [facility]. provides no warranty or guarantee of the accuracy or completeness of information in this document.
--- NOTE | 2024-10-12 16:07 | US_ITS ---
[address] [address] Patient Name: CAROL ANN ROMAN MRN: [id number] date: 1985 Sex: F Assigned Patient Location: [facility] Current Patient Location: Accession/Order Number: [id number] Exam Date: 10/12/2024 16:10 Report Date: 10/13/2024 07:55 At the request of: JOHN VERDIN Procedure: US OB BPP w non-stress EXAMINATION: US OB BPP w non-stress HISTORY: MULTIPLE SCLEROSIS [id number] COMPARISON: No relevant comparison available. TECHNIQUE: Ultrasound biophysical profile was performed in the radiology department. non-reactive stress testing was performed by nursing staff in the birthing center. FINDINGS: BREATHING MOVEMENTS: 2 GROSS BODY MOVEMENTS: 2 TONE: 2 QUALITATIVE AMNIOTIC FLUID VOLUME: 2 PRESENTATION: CEPHALIC HEART RATE: 145.16 bpm AMNIOTIC FLUID VOLUME: 9.3 cm GESTATIONAL AGE: 89 Day US/US OB BPP w non-stress IMPRESSION: Total biophysical profile score: 8 Electronically authenticated by: JANICE ERWIN Date: 10/13/2024 07:55
[2024-10-12 16:32] VITALS: BP 121/73; PULSE 101
== END 2024-10-12 17:01 | disposition home or self-care (01) ==
LOC: FBCO 07:24 → FBC 15:59
PROVIDERS: Visit Provider Obstetrics & Gynecology
DX: O99.353 Diseases of the nervous system complicating pregnancy, third trimester (principal); G35 Multiple sclerosis; Z3A.31 31 weeks gestation of pregnancy
CPT/HCPCS: 76818

== ENCOUNTER 2024-10-14 00:19 | Inpatient (IN) | payer MEDICARE, MEDICAID, SELFPAY ==
[2024-10-14] VITALS (34 sets, daily range): BP systolic 105–146; BP diastolic 59–86; PULSE 84–108; TEMP 36.6–36.9
--- OUTSIDE RECORDS SUMMARY | 2024-10-14 00:26 | XMS_ITS | CCD ---
Author Organization [facility] Care Team Providers Care Human Resource Consultant Name Role Phone NON, STAFF Primary Care [...] Primary Care Provider Clarke Hu Attending Provider [phone] MD Primary Care Provider [...] Unavailable Janice Lane Primary Care Unavailable Ada [facility], Marcin Unavailable Unavailable Janice Lane MD Primary Care Provider Deuce STRAP CUTTING MACHINE OPERATOR-FIREPOT OPERATOR AND TENDER, Nataly Amor Unavailable JAHAIRA BYERS Attending Unavailable MARVIN HOWARD Attending Unavailable STERLING, MARVIN Diego Attending Unavailable MARVIN HOWARD Attending Unavailable KELECHI TATUM Attending Unavailable MAYTE, CLARKE Attending Unavailable MAYTE, CALRKE Attending Unavailable MAYTE, CLARKE Attending Unavailable JAHAIRA BYERS Attending Unavailable MAYTE, CLARKE Attending Unavailable NESHA ZELAYA Attending Unavailable MAYTE, CLARKE Attending Unavailable MAYTE, CLARKE Attending Unavailable MARVIN HOWARD Attending Unavailable MAYTE, CLARKE Attending Unavailable KELECHI TATUM Attending Unavailable JAHAIRA BYERS Attending Unavailable ALEYDA MONTEMAYOR Attending Unavailable NORIJAHAIRA FINK Attending Unavailable MAYTE, CLARKE Attending Unavailable MAYTE, CLARKE Attending Unavailable JAHAIRA BYERS Attending Unavailable TAYLOR HUY APRIL Referring Unavailable JANICE LANE Primary Care Unavailable JANICE ESCOBAR Attending Unavailable JANICE LANE Primary Care Unavailable CLARKE HU Referring Unavailable JANICE LANE Primary Care Unavailable MAYTE, CLARKE APRIL Referring Unavailable JANICE LANE Primary Care Unavailable JANICE ESCOBAR Attending Unavailable JNAICE LANE Primary Care Unavailable CLARKE HU Referring Unavailable JANICE LANE Primary Care Unavailable CLARKE HU Referring Unavailable JANICE LANE Primary Care Unavailable CLARKE HU Referring Unavailable JANICE LANE Primary Care Unavailable MEL ROBERTS Attending Unavailable JANICE LANE Primary Care Unavailable JANICE LANE Primary Care Unavailable TOR HERNANDEZ Attending Unavailable NESHA SANTANA Referring Unavailable IBAN LAZO Attending Unavailable JANICE LANE Primary Care Unavailable RIMAJANICE Referring Unavailable RIMAJANICE Primary Care Unavailable RIMA, JANICE Pérez Referring Unavailable RIMA, JANICE Pérez Primary Care Unavailable GERMANIA WILKINSON Attending Unavailable RIMAJANICE Primary Care Unavailable TOR HERNANDEZ Referring Unavailable RIMA, JANICE Pérez Primary Care Unavailable IBAN LAZO Attending Unavailable IBAN LAZO Attending Unavailable RIMAJANICE Primary Care Unavailable KARI WILKINSONET Referring Unavailable RIMAJANICE Primary Care Unavailable ESTELLA DUTTON Attending Unavailable RIMA, JANICE Pérez Primary Care Unavailable TOR HERNANDEZ Referring Unavailable RIMAJANICE Attending Unavailable RIMA, JANICE Pérez Primary Care Unavailable RIMA, JANICE Pérez Primary Care Unavailable SELF Referring Unavailable CHAMP LEON Attending Unavailable RIMA, JANICE Pérez Primary Care Unavailable TOR HERNANDEZ Referring Unavailable RIMA, JANICE Pérez Primary Care Unavailable IBAN LAZO Attending Unavailable RIMAJANICE Parks Primary Care Unavailable RIMAJANICE HOFFMAN Attending Unavailable GERMANIA WILKINSON Referring Unavailable RIMA, JANICE Pérez Primary Care Unavailable RIMA, JANICE Pérez Primary Care Unavailable IBAN LAZO Attending Unavailable SELF Referring Unavailable ART SWENSON Attending Unavaila ble RIMA, JANICE Pérez Primary Care Unavailable GERMANIA WILKINSON Attending Unavailable JANICE LANE Primary Care Unavailable IBAN LAZO Attending Unavailable RIMA, JANICE Pérez Primary Care Unavailable RIMAJANICE Referring Unavailable RIMAJANICE Parks Primary Care Unavailable RIMAJANICE Referring Unavailable RIMAJANICE Primary Care Unavailable RIMAJANICE Primary Care Unavailable RIMAJANICE Primary Care Unavailable ROXY HOGAN Attending Unavailable RIMA, JANICE Pérez Primary Care Unavailable TOR HERNANDEZ Attending Unavailable RIMAJANICE Parks Primary Care Unavailable RIMAJANICE Referring Unavailable RIMAJANICE Primary Care Unavailable IBAN LAZO Attending Unavailable SELF Referring Unavailable JANICE LANE Primary Care Unavailable AYAN MARIE Attending Unavailable RIMA, JANICE Pérez Primary Care Unavailable TOR HERNANDEZ Attending Unavailable Unavailable Unavailable Unavailable Allergies Allergy Classification Reported Allergen(s) Allergy Type Date of Onset Reaction(s) Facility Lecithin (1 source) Lecithin Drug Allergy 9 Other: See Comments, Unknown, Itching, GI Upset [facility] Soy (1 source) Soy protein Food Allergy 0 Intolerance [facility] Soybean Lecithin (1 source) Soybean Lecithin Drug Allergy 2 GI Upset, Unknown [facility] Wheat gluten extract (1 source) Wheat gluten extract Drug Allergy 9 Other: See Comments, Hives, Itching [facility] (2 sources) glutenin; Translations: [GLUTEN] Allergy to substance (finding) 9 [facility] Repository (20 sources) Soy protein; Translations: [SOY ALLERGY] Propensity to adverse reactions to drug (disorder) 0 Headache, Unknown [facility] Repository (20 sources) GLUTEN MEAL; Translations: [GLUTEN MEAL] Propensity to adverse reactions to drug (disorder) 9 Hives, Itching, Unknown [facility] Repository (1 source) LECITHIN ORGANIC-SOYBEAN LECITHIN; Translations: [LECITHIN ORGANIC-SOYBEAN LECITHIN] Propensity to adverse reactions to drug (disorder) 9 [facility] Repository (20 sources) Lecithin; Translations: [LECITHIN] Drug Allergy 9 Other: See Comments, Unknown, Itching, GI Upset, Nausea And Vomiting [facility] Work Phone: (20 sources) Soy protein; Translations: [SOY] Drug Intolerance 0 Intolerance [facility] (20 sources) Wheat gluten extract Drug Allergy 9 Other: See Comments, Hives, Itching [facility] (20 sources) Soybean Lecithin; Translations: [LECITHIN, SOY] Drug Allergy 2 GI Upset, Unknown [facility] (20 sources) Other Allergy to substance 0 Headache [facility] (1 source) ALLERGIES NOT ON FILE; Translations: [ALLERGIES NOT ON FILE] Propensity to adverse reactions (disorder) [facility] Medications Current Medications Medication Drug Class(es) Dates Sig (Normalized) Sig (Original) acetaminophen 325 mg oral tablet (13 sources) Start: 01-11-2021 End: 08-08-2022 take 2 tablets by mouth every four hours as needed acetaminophen (TYLENOL) 325 mg tablet Take 2 tablets by mouth every 4 hours as needed. 40 tablet 0 01/11/2021 08/08/2022 Discontinued Comment on above: Take 2 tablets by [facility] every 4 hours as needed. amoxicillin 875 [...] Comment on above: Take 1,000 mg by [facility] two times a day. B Complex-C [...] mg/ml / clotrimazole 10 mg/ml topical cream (20 sources) Azole Antifungal, Corticosteroid Start: 02-23-2024 clotrimazole-betamethason [...] Discontinued Start: 04-09-2019 take 1 capsule by [facility] once daily Cholecalciferol (Vitamin D3) (Vitamin D3) 1,000 unit Capsule Active 1000 UNIT PO Daily April 09, 2019 12:00am [facility] cholecalciferol (Vitamin D3) 1.25 MG (38839 UT) tablet Take 1.25 mg by mouth once a week Active Comment on above: Take 1 capsule by [facility] one time a week. diphenhydrAMINE hydrochloride 25 [...] every week ergocalciferol (Vitamin D-2) 1.25 MG (13505 UT) capsule Take 50,000 Units by mouth once a week. 07/31/2023 Active Start: 08-08-2022 take 1 capsule by [facility] every week ergocalciferol 50,000 unit capsule (VITAMIN D2, DRISDOL) Take 1 capsule by mouth one time a week. 12 capsule 3 08/08/2022 Active Comment on above: Take 1 capsule by [facility] one time a week. ferrous sulfate 325 mg oral tablet (20 sources) Start: 02-13-2023 End: 03-15-2023 take 1 tablet by mouth once daily ferrous sulfate 325 mg (65 mg iron) tablet Indications: Iron deficiency anemia due to chronic blood loss Take 1 tablet by mouth once daily. 30 tablet 1 02/13/2023 03/15/2023 Active take 1 tablet [facility] Ferrous Sulfate (IRON PO) Take 1 tablet by mouth in the morning. Active FERROUS SULFATE ORAL Take by mouth every 24 hours. Active FERROUS SULFATE ORAL Take by mouth every 24 hours. 0 Active [facility] Ferrous Sulfate (IRON PO) Take 1 tablet by mouth in the morning. 0 Active Comment on above: Take 1 tablet by [facility] once daily. Take by mouth every 24 hours. fluticasone propionate 0.05 mg/actuat metered dose nasal spray (20 sources) Corticosteroid Start: take 1 spray(s) nasal route once daily fluticasone (FLONASE) 50 mcg/actuation nasal spray Use 1 [place] in each nostril once daily. 1 g 5 09/01/2020 Active Comment on above: Use 1 [place] in each nostril once daily. 1 ml glatiramer acetate 40 mg/ml prefilled syringe (20 sources) Start: End: 12-16-2 024 inject 40 mg by subcutaneous injection once [...] 4 MG tablets Indications: MS (multiple sclerosis) ([facility]) Day 1: 6 tablets Day 2: [...] by [facility] every 24 hours. Tydiwjlolkad-Umqi-F olic Acid (1 source) Start: 04-09-2019 take 1 tablet by mouth once daily Multivitamin-Iron- Folic Acid Active 1 TAB Oral Daily April 09, 2019 12:28pm Oqyfykszakmx-Qlmi-E olic Acid (Multi-Day With Iron) 18-400 mg-mcg Tablet (5 sources) Start: 04-09-2019 take 1 tablet by mouth once daily Multivitamin-Iron- Folic Acid (Multi-Day With Iron) 18-400 mg-mcg Tablet Active 1 TAB PO Daily April 09, 2019 12:28pm Start: 04-09-2019 take 1 tablet by [facility] once daily Shumhpluxulh-Scsd-Qtjxx Acid (Multi-Day With Iron) 18-400 mg-mcg Tablet Active 1 TAB PO Daily April 09, 2019 12:00am Start: 04-09-2019 take 1 tablet by [facility] once daily Wzrqgstamcdm-Lpdk-Qcwmb Acid (Multi-Day With Iron) 18-400 mg-mcg Tablet [...] 1 Drop (AK-DILATE, SABINA-SYNEPHRINE) polyethylene glycol 3350 70061 mg powder for oral solution (20 sources) Osmotic Laxative Start: 03-30-2024 End: 05-29-2024 polyethylene glycol 3350 (MIRALAX) 17 gram/dose powder Indications: Multiple sclerosis (HCC) , Constipation, unspecified constipation type Take 17 g by mouth once daily. Dissolve dose in 4 - 8 ounces of liquid and take as directed. 510 g 1 03/30/2024 05/29/2024 Active Start: 04-19-2021 End: 08-14-2022 polyethylene glycol 3350 (LA RALAX) 17 gram/dose powder Indications: Chronic idiopathic [...] ounces of liquid and take as directed. Daxfxnlp-Cah-Lb-FA (Jenliva / ) 1 MG capsule (20 sources) Rigguxyq-Bbx-Bs-FA (Jenliva /) 1 MG capsule Take by [...] Comment on above: Take 1 tablet by [facility] every 8 hours as needed. tropicamide 10 mg/ml ophthalmic solution (1 source) Anticholinergic Start: 08-14-20 End: 08-15-20 tropicamide 1 % 1 Drop (MYDRIACYL) valACYclovir 500 mg oral tablet (9 sources) Herpesvirus Nucleoside Analog DNA Polymerase Inhibitor, [...] every four to six hours Hydrocodone-Acetami nophen ([place]) 5-325 mg Tablet Discontinued 1 TAB PO [...] Take by mouth once d aily. Mag Ahnqd-N4-Muhvooof Rt Xt (6 sources) Vitamin D Start: 04-09-2019 End: 04-02-2022 Mag Psmjj-Q4-Ukqpuyvo Rt Xt Discontinued TABLET April 09, 2019 12:28pm April 02, 2022 5:24pm Start: 04-09-2019 Mag Oxide-D3-T urmeric Rt Xt Active April 09, 2019 12:28pm Start: 04-09-2019 End: 04-02-2022 Mag Xdrtc-W4-Oicmwrqo Rt Xt Discontinued TABLET April 09, 2019 12:00am April 02, 2022 5:24pm Start: 04-09-2019 End: 04-02-2022 Mag Yhtnm-A8-Akdcjssn Rt Xt Discontinued TABLET April 08, 2019 [...] 2019 12:00am April 02, 2022 5:23pm levonorgestrel 0.840421 mg/hr intrauterine system (6 sources) Progestin, Progestin-containing [...] on above: Take 1 capsule by [facility] DAILY (6 AM). Magnesium (20 sources) End: [...] Take 20 mEq by mouth as needed. Cuhfqtkg-Am-Jcx-Fe-FA ( VITAMIN) tab (20 sources) Start: take 1 tablet by mouth once daily Ytsqdylf-Pm-Suk-Fe- FA ( VITAMIN) tab Indications: Encounter for [...] malignant neoplasm] 12-11-2023 Episodic Other complications of (5 sources) care status; Translations: [Maternal care for other known or suspected poor growth, third trimester, not applicable or unspecified] Onset: 10-05-2024 08-17-2024 Episodic Other complications of (1 source) [...] the nervous system complicating , second trimester ([facility])] Onset: 06-16-2024 Episodic Other complications of (2 sources) Supervision of elderly primigravida, third trimester; Translations: [Supervision of elderly primigravida, third trimester] Onset: 08-17-2024 Episodic Other complications of (2 sources) Diseases of the nervous system complicating , third trimester; Translations: [Diseases of the nervous system complicating , third trimester ([facility])] Onset: 08-17-2024 Episodic Other complications of (2 sources) Maternal care for other abnormalities of cervix, third trimester; Translations: [Maternal care for other abnormalities of cervix, third trimester ([facility])] Onset: 08-17-2024 Episodic Other complications of (2 sources) Cervical shortening, third trimester; Translations: [Cervical shortening, third trimester ([facility])] Onset: 08-17-2024 Episodic Other connective [...] nervous system disorders (1 source) 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; Translations: [History of multiple sclerosis] Episodic [...] hip] 07-19-2024 Episodic Other non-traumatic joint disorders (10 sources) Hip pain; Translations: [Pain in right hip] Onset: 09-03-2024 09-03-2024 Episodic Other non-traumatic joint disorders (1 source) Pain in right hip; Translations: [Right hip pain] Onset: 09-21-2024 Episodic Other nutritional; endocrine; and metabolic disorders [...] of ; Translations: [36 weeks gestation of ([facility])] Onset: 10-05-2024 Episodic Residual codes; unclassified (2 [...] Translations: [Other malaise] Onset: 06-08-2024 06-08-2024 Episodic Other aftercare (20 sources) Patient encounter status; Translations: [Other longterm (current) drug therapy] Onset: 01-08-2021 Resolved: 01-11-2021 [...] and damage, unspecified, not applicable or unspecified ([facility])] Onset: 06-14-2024 Episodic Other complications of (20 [...] 01-11-2021 Episodic Other complications of (10 sources) Multiple sclerosis; Translations: [Diseases of the nervous system complicating , third trimester] Onset: 06-16-2024 08-17-2024 Episodic Other complications of (9 sources) Short cervical length in ; Translations: [Cervical shortening, third trimester] Onset: 06-16-2024 08-17-2024 Episodic Other complications of (2 sources) Supervision of elderly multigravida, second trimester; Translations: [Supervision of elderly multigravida, second trimester ([facility])] Onset: 06-14-2024 Episodic Other complications of (2 sources) Diseases of the nervous system complicating , unspecified trimester; Translations: [Diseases of the nervous system complicating , unspecified trimester ([facility])] Onset: 06-14-2024 Episodic Other complications of (2 sources) Cervical shortening, second trimester; Translations: [Cervical shortening, second trimester ([facility])] Onset: 06-14-2024 Episodic Other endocrine disorders (20 [...] Onset: 06-08-2024 Episodic Other nervous system disorders (20 sources) [...] for obstructive sleep apnea] Onset: 06-08-2024 Episodic Spondylosis; intervertebral disc disorders; other back [...] Interpretation Reference Range Facility No Panel Informationon 10-12 Interpreted by: Radha Viera Indication ======== BPP for Suspected Problem with Growth History ====== General [...] 1 Dating ====== GA by prior assessment 37 w + 6 d ELLIOTT by prior assessment: 10/27/2024 Assigned: based on stated ELLIOTT, selected on 06/14/2024 Assigned GA 37 w + 6 d Assigned ELLIOTT: 10/27/2024 [...] 70.2 26% 2643 19% Impression ========= Patient presents at 37w6d for evaluation of well being in a with the following complications: multiple sclerosis, history of LEEP, AMA, FGR by AC diagnosed at 34 weeks. - Normal amniotic fluid volume - BPP 8/8 -Normal doppler indices with an RI at the 62% percentile Reassuring status based on today's assessment. There are no critical findings today to indicate delivery. [facility] visit prior to US today. Scheduled for delivery locally in one week (10/20). Thank you for allowing us to participate in your patient's care. Attending Attestation: I personally reviewed the image(s)/study and fellow interpretation. I agree with the findings as stated. Follow-up ======== No further follow up requested. General Evaluation Cardiac activity present. FHR 149 bpm. movements: visualized. Presentation: cephalic Placenta: Placental site: posterior, No Previa Seen Umbilical cord: Cord vessels: 3 vessel cord Biophysical Profile 2: breathing movements 2: Gross body movements 2: tone 2: Amniotic fluid volume 06/17 Biophysical profile score Amniotic Fluid Assessment Amount of AF: normal amount MVP 4.3 cm. ZEN 13.6 cm. Q1 3.5 cm, Q2 3.6 cm, Q3 2.2 cm, Q4 4.3 cm Doppler Arterial Umbilical A PI 0.91 54% Radha Umbilical A RI 0.60 62% Radha Maternal Structures Uterus / Cervix Uterus: Visualized Cervix: Not visualized Ovaries / Tubes / Adnexa Rt ovary: Normal Lt ovary: Normal Method ====== Transabdominal ultrasound examination. View: Sufficient Indication ======== BPP for Suspected Problem with Growth History ====== General [...] 1 Dating ====== GA by prior assessment 37 w + 6 d ELLIOTT by prior assessment: 10/27/2024 Assigned: based on stated ELLIOTT, selected on 06/14/2024 Assigned GA 37 w + 6 d Assigned ELLIOTT: 10/27/2024 [...] 27% 304.3 6% 70.2 26% 2643 19% Imp (more content not included)... [facility] Radha Batres M D - 10/12/2024 Interpreted by: Radha Batres Indication ======== BPP for Suspected Problem with Growth History ====== General History Zqfzxm148 cm Height (ft)5 ft Height (in)6 in Previous Outcomes Gravida2 Para1 Children born living ?37w1 Pregnancies delivered at term (T)1 Living children (L)1 Other:Vaginal Delivery Maternal Assessment Aphdzt849 cm Height (ft)5 ft Height (in)6 in Feanmd56 kg Weight (lb)131 lb Weight gain0 kg Weight gain (lb)0 lb BMI21.14 kg/m Physical Exam Initial weight (lb)131 lb ========= Tony . Number of fetuses: 1 Dating ====== GA by prior thtgjqvypx28 w + 6 d ELLIOTT by prior assessment:10/27/2024 Assigned:based on stated ELLIOTT, selected on 06/14/2024 Assigned GA37 w + 6 d Assigned ELLIOTT:10/27/2024 Growth [...] 70.2 26% 2643 19% Impression ========= Patient presents at 37w6d for evaluation of well being in a with the following complications: multiple sclerosis, history of LEEP, AMA, FGR by AC diagnosed at 34 weeks. - Normal amniotic fluid volume - BPP /8 -Normal doppler indices with an RI at the 62% percentile Reassuring status based on today's assessment. There are no critical findings today to indicate delivery. [facility] visit prior to US today. Scheduled for delivery locally in one week (10/20). Thank you for allowing us to participate in your patient's care. Attending Attestation: I personally reviewed the image(s)/study and fellow interpretation. I agree with the findings as stated. Follow-up ======== No further follow up requested. General Evaluation Cardiac activity present. FHR 149 bpm. movements: visualized. Presentation: cephalic Placenta: Placental site: posterior, No Previa Seen Umbilical cord: Cord vessels: 3 vessel cord Biophysical Profile 2: breathing movements 2: Gross body movements 2: tone 2: Amniotic fluid volume 8/8 Biophysical profile score Amniotic Fluid Assessment Amount of AF: normal amount MVP 4.3 cm. ZEN 13.6 cm. Q1 3.5 cm, Q2 3.6 cm, Q3 2.2 cm, Q4 4.3 cm Doppler Arterial Umbilical A PI0.9154% Radha Umbilical A RI0.6062% Radha Maternal Structures Uterus / Cervix Uterus:Visualized Cervix:Not visualized Ovaries / Tubes / Adnexa Rt ovary:Normal Lt ovary:Normal Method ====== Transabdominal ultrasound examination. View: Sufficient Indication ======== BPP for Suspected Problem with Growth History ====== General History Sngngl934 cm Height (ft)5 ft Height (in)6 in Previous Outcomes Gravida2 Para1 Children born living ?37w1 Pregnancies delivered at term (T)1 Living children (L)1 Other:Vaginal Delivery Maternal Assessment Pfongl421 cm Height (ft)5 ft Height (in)6 in Bifwqf89 kg Weight (lb)131 lb Weight gain0 kg Weight gain (lb)0 lb BMI21.14 kg/m Physical Exam Initial weight (lb)131 lb ========= Tony . Number of fetuses: 1 Dating ====== GA by prior qroelrvtes61 w + 6 d ELLIOTT by prior assessment:10/27/2024 Assigned:based on stated ELLIOTT, selected on 06/14/2024 Assigned GA37 w + 6 d Assigned ELLIOTT:10/27/2024 Growth [...] 70.2 26% 2643 19% Impression ========= Patient presents at 37w6d for evaluation of well being in a with the following complications: multiple sclerosis, history of LEEP, AMA, FGR by AC diagnosed at 34 weeks. - Normal amniotic fluid volume - BPP 06/17 -Normal doppler indices with an RI at the 62% percentile Reassuring status based on today's assessment. There are no critical findings today to indicate delivery. [facility] visit prior to US today. Scheduled for delivery locally in one week (10/20). Thank you for allowing us to participate in your patient's care. Attending Attestation: I personally reviewed the image(s)/study and fellow interpretation. I agree with the findings as stated. Follow-up ======== No further follow up requested. General Evaluation ====== (more content not included)... [facility] Work Phone: Radiology Study observation (narrative) [facility] Work Phone: No Panel InformationOrdered By: Radha Batres on 10-12-2024 [facility] Work Phone: CNTHERAPYon 10-11-2024 CNTHERAPY OT/PT/Speech Visit (LOPTRM) ----- CAROL ANN MARTINEZ ([id number]) 1985 F Date Time Provider Department 10/11/24 1:00 PM ESTRELLA SORTO LOPTRM Date Time Provider Department Center 10/11/2024 1:00 PM [id number] SORTO Reason for Visit: PT Discharge [752] Primary Visit Diagnosis:Right hip pain [M25.551] Allergies As of Date: 10/11/2024 Noted Allergy Reaction GLUTEN 03/19/2019 14 - [...] constipated Date Reviewed: 08/30/2024 Reviewed by: Art Swenson, OD - Fully Assessed Prescriptions as of 10/11/2024 - methylPREDNISolone (MEDROL DOSE-PACK) 4 mg Dose-Pack [...] (FLONASE) 50 mcg/actuation nasal spray Use 1 [place] in each nostril once daily. [employer] I Assembler: Therapy (PT/OT/Speech/Resp) ID: [id number] 10/11/2024 1:31 PM Author: ESTRELLA SORTO Signed by ESTRELLA SORTO PT, DPT on 10/11/2024 at 1:31 PM Document text: Program_ID:[id number] Access Code: [email or web address] URL: [email or web address] Date: 10-11-2024 Prepared By: Estrella Sorto Program [...] - 10 reps - Hamstring Set with Fijian Ball - 1 x daily - 7 x weekly - 2 sets - 10 reps - Supine Bridge - 1 x daily - 7 x weekly - 2 sets - 10 reps Normal [facility] THERAPY NTon 10-11-2024 THERAPY NT HNO ID: [id number] Author: ESTRELLA SORTO PT, DPT Service: ? Author Type: Physical Therapist Type: Therapy (PT/OT/Speech/Resp) Filed: 10/11/2024 13:31 Note Text: Program_ID:[id number] Access Code: [email or web address] URL: [email or web address] Date: 10-11-2024 Prepared By: Estrella Brackman Program Notes Exercises - Seated Hip Adduction [...] - 10 reps - Hamstring Set with Fijian Ball - 1 x daily - 7 x weekly - 2 sets - 10 reps - Supine Bridge - 1 x daily - 7 x weekly - 2 sets - 10 reps Normal [facility] No Panel Informationon 10-05 Interpreted by: Mel Hu Indication ======== Suspected [...] BPP and Dopplers. Delivery is recommended at [id number]. Please see note from today for details [...] EFW (oz) 13 oz EFW by: Hadlock (VZA-QN-NB-FL) Extended Production Support Manager 5.8 mm Head / Face / Neck [...] kg Weight ga (more content not included)... VIEWPOINT Mel Roberts MD - 10/05/2024 Interpreted by: Mel Roberts Indication ======== Suspected Problem with Growth. History ====== General History Bpiori783 cm Height (ft)5 ft Height (in)6 in Previous Outcomes Gravida2 Para1 Children born living ?37w1 Pregnancies delivered at term (T)1 Living children (L)1 Other:Vaginal Delivery Maternal Assessment Rcwjue751 cm Height (ft)5 ft Height (in)6 in Tpjttp71 kg Weight (lb)131 lb Weight gain0 kg Weight gain (lb)0 lb BMI21.14 kg/m Physical Exam Initial weight (lb)131 lb ========= Tony . Number of fetuses: 1 Dating ====== GA by prior [id number] w + 6 d ELLIOTT by prior [...] BPP and Dopplers. Delivery is recommended at 89x8g-77d0t. Please see note from today for details [...] Biometry Standard BPD89.7 mm36w 2d 49% Hadlock ODY151.7 mm 64% INTERGROWTH-21st HC326.4 mm37w 0d 27% Hadlock AC304.3 mm34w 3d 6% Hadlock Femur70.2 mm36w 0d 26% Hadlock HC / AC1.07 EFW2,643 g35w 2d 19% Hadlock EFW (lb)5 lb EFW (oz)13 oz EFW by:Hadlock (MTR-QA-TW-FL) Extended Vp5.8 mm Head / Face / Neck Cephalic index0.78 16% Nicolaides Extremities / Bony Struc FL / BPD0.78 FL / HC0.22 FL / AC0.23 Other Structures QKS751 bpm Anatomy Cranium:Normal Lateral ventricles:Normal Midline falx:Normal [...] Problem with Growth. History ====== General History Wjkzab931 cm Height (ft)5 ft Height (in)6 in Previous Outcomes Gravida2 Para1 Children born living ?37w1 Pregnancies delivered at term (T)1 Living children (L)1 Other:Vaginal Delivery Maternal Assessment Hpqtfz736 cm Height (ft)5 ft Height (in)6 in Eaizih96 kg Weight (lb)131 lb Weight gain0 kg Weight gain (lb)0 lb BMI21.14 kg/m Physical Exam Initial weight (lb)131 lb ========= Tony . Number of fetuses: 1 Dating ====== GA by prior mefzgvkfdh14 w + 6 d ELLIOTT by prior assessment:10/27/2024 Ultrasound examination on:10/05/2024 GA by U/S based upon:AC, BPD, Femur, HC GA by U/S36 w + 0 d ELLIOTT by U/S:11/02/2024 Assigned:based on stated ELLIOTT, selected on 06/14/2024 Assigned GA (more content not included)... [facility] Work Phone: [facility] Work Phone: Radiology Study observation (narrative) [facility] Work Phone: US BIOPHYSICAL PROFILE WO NON [...] BPP and Dopplers. Delivery is recommended at 62m7v-87i7o. Please see note from today for details [...] EFW (oz) 13 oz EFW by: Hadlock (KUV-CO-SB-FL) Extended Production Support Manager 5.8 mm Head / Face / Neck [...] 36 w + (more content not included)... [facility] US OB FOLLOW UP TRANSABDOMIN AL [...] BPP and Dopplers. Delivery is recommended at 74z6z-66k7t. Please see note from today for details [...] EFW (oz) 13 oz EFW by: Hadlock (DHX-KD-GU-FL) Extended Production Support Manager 5.8 mm Head / Face / Neck [...] 36 w + (more content not included)... [facility] US UMBILICAL ARTERY DOPPLERo n 10-05-2024 [...] BPP and Dopplers. Delivery is recommended at 68t2o-85i1j. Please see note from today for details [...] EFW (oz) 13 oz EFW by: Hadlock (QNU-QC-FE-FL) Extended Production Support Manager 5.8 mm Head / Face / Neck [...] w + (more content not included)... Normal [facility] Urinalysis macro (dipstick) panel (U)on 10-04-2024 Bilirubin, UA Negative Negative - 4(70) +++ mg/dL [facility] Blood, UA Positive Negative - 50 Delbert/mcL [facility] Comment on above: trace-intact Clarity, UA Clear [facility] Color, UA Yellow [facility] Glucose, UA Negative Negative - 1999(110) ++++ mg/dL [facility] Interpretation and review of laboratory results Abnormal [facility] Ketones, UA Negative Negative - 160(16) ++++ mg/dL [facility] Leukocytes, UA Positive Negative - 500+++ Baltazar/mcL [facility] Comment on above: small Nitrite, UA Negative Negative - Positive [facility] pH, UA 6 5 - 9 [facility] Protein, UA Trace Negative - 1999(20) ++++ mg/dL [facility] Spec Grav, UA 1.03 1 - 1.03 [facility] Urobilinogen, UA 0.2 0.2 - 12 mg/dL [facility] Urinalysis macro (dipstick) panel (U)on 09-27-2024 Bilirubin, UA Negative Negative - 4(70) +++ mg/dL [facility] Blood, UA Negative Negative - 50 Delbert/mcL [facility] Clarity, UA Clear [facility] Color, UA Yellow [facility] Glucose, UA Negative Negative - 1999(110) ++++ mg/dL [facility] Interpretation and review of laboratory results Normal [facility] Ketones, UA Negative Negative - 160(16) ++++ mg/dL [facility] Leukocytes, UA Negative Negative - 500+++ Baltazar/mcL [facility] Nitrite, UA Negative Negative - Positive [facility] pH, UA 5.5 5 - 9 [facility] Protein, UA Negative Negative - 1999(20) ++++ mg/dL [facility] Spec Grav, UA 1.02 1 - 1.03 [facility] Urobilinogen, UA 1.0 0.2 - 12 mg/dL [facility] CNTHERAPYon 09-21-2024 CNTHERAPY OT/PT/Speech Visit (RENE) ----- CAROL ANN MARTINEZ ([id number]) 1985 F Date Time Provider Department 09/21/24 9:45 AM ESTRELLA SORTO Date Time Provider Department [place] 09/21/2024 9:45 AM [id number] SORTO Reason for Visit: Physical Therapy [503] [...] (FLONASE) 50 mcg/actuation nasal spray Use 1 [place]handle in each nostril once daily. Small Products I Assembler: Therapy (PT/OT/Speech/Resp) ID: [id number] 09/21/2024 10:16 AM Author: ESTRELLA SORTO Signed by ESTRELLA SORTO PT, DPT on 09/21/2024 at 10:16 AM Document text: Program_ID:[id number] Access Code: [email or web address] URL: [email or web address] Date: 09-21-2024 Prepared By: Estrella Sorto Program [...] - 2 sets - 10 reps Normal [facility] THERAPY NTon 09-21-2024 THERAPY NT HNO ID: [id number] Author: ESTRELLA SORTO, PT, DPT Service: ? Author Type: Physical Therapist Type: Therapy (PT/OT/Speech/Resp) Filed: 09/21/2024 10:16 Note Text: Program_ID:[id number] Access Code: [email or web address] URL: [email or web address] Date: 09-21-2024 Prepared By: Estrella Sorto Program [...] - 2 sets - 10 reps Normal [facility] Urinalysis macro (dipstick) panel (U)on 09-21-2024 Bilirubin, UA Negative Negative - 4(70) +++ mg/dL [facility] Blood, UA Negative Negative - 50 Delbert/mcL [facility] Clarity, UA Clear [facility] Color, UA Yellow [facility] Glucose, UA Negative Negative - 2000(110) ++++ mg/dL [facility] Interpretation and review of laboratory results Abnormal [facility] Ketones, UA Negative Negative - 160(16) ++++ mg/dL [facility] Leukocytes, UA Trace Negative - 500+++ Baltazar/mcL [facility] Nitrite, UA Negative Negative - Positive [facility] pH, UA 7 5 - 9 [facility] Protein, UA Negative Negative - 2000(20) ++++ mg/dL [facility] Spec Grav, UA 1.02 1 - 1.03 [facility] Urobilinogen, UA 0.2 0.2 - 12 mg/dL [facility] US OB FOLLOW UP TRANSABDOMIN AL APPROACHon [...] EFW (oz) 0 oz EFW by: Hadlock (QKG-JN-NI-FL) Extended Production Support Manager 1.6 mm Head / Face / Neck [...] view: limited by late gestational age Normal [facility] Urinalysis macro (dipstick) panel (U)on 09-07-2024 Bilirubin, UA Negative Negative - 4(70) +++ mg/dL [facility] Blood, UA Negative Negative - 50 Delbert/mcL [facility] Clarity, UA Clear [facility] Color, UA Yellow [facility] Glucose, UA Negative Negative - 2000(110) ++++ mg/dL [facility] Interpretation and review of laboratory results Abnormal [facility] Ketones, UA Negative Negative - 160(16) ++++ mg/dL [facility] Leukocytes, UA Trace Negative - 500+++ Baltazar/mcL [facility] Nitrite, UA Negative Negative - Positive [facility] pH, UA 7 5 - 9 [facility] Protein, UA Negative Negative - 2000(20) ++++ mg/dL [facility] Spec Grav, UA 1.02 1 - 1.03 [facility] Urobilinogen, UA 0.2 0.2 - 12 mg/dL [facility] [id number] 09-03-2024 [id number] HNO ID: [id number] Author: ESTRELLA SORTO PT, DPT Service: ? Author Type: Physical Therapist Type: [id number] Filed: 09/03/2024 11:25 Note Text: [facility] Physical Therapy Plan of Care Certification Patient Name: Carol Ann Martinez : 1985 [facility] #: [id number] Date: 09/03/2024 To: Janice Lane MD From Therapist: Estrella Brackman, PT, DPT RE: Patient Certification/ Recertification Your review, approval and electronic signature are required in order to comply with Payor: [employer] MEDICARE / Plan: [employer] PLUS / Product Type: HMO / regulations. [...] Goals for Episode of Care: established 09/03/24 [place] in home exercise program. Patient will decrease [...] Planned: 4 Planned Treatment Interventions: Therapeutic exercise (37340), Neuromuscular re-education (05106), Manual therapy (87391), Therapeutic activities (19766), Self-senior care management (97569), Gait Training (98534), Patient/Family/Caregiver Education PLAN FOR NEXT VISIT: Continue [...] the treatment plan for Carol Ann Martinez, [facility]# [id number] for the period of 09/03/24 -- 11/02/24, established on 09/03/2024. Signature certifies the need for therapy services. Normal [facility] CNTHERAPYon 09-03-2024 CNTHERAPY OT/PT/Speech Visit (KEPTJAMILA) ----- CAROL ANN MARTINEZ ([id number]) 1985 F Date Time Provider Department 09/03/24 8:45 AM ESTRELLA SORTO Date Time Provider Department [place] 09/03/2024 8:45 AM [id number] SORTO Reason for Visit: PT Eval [747] [...] (FLONASE) 50 mcg/actuation nasal spray Use 1 [place] in each nostril once daily. Small Products I Assembler: Therapy (PT/OT/Speech/Resp) ID: [id number] 09/03/2024 9:22 AM Author: ESTRELLA SORTO Signed by ESTRELLA SORTO PT, DPT on 09/03/2024 at 9:22 AM Document text: Program_ID:[id number] Access Code: [email or web address] URL: [email or web address] Date: 09-03-2024 Prepared By: Estrella Sorto Program Notes Exercises - Seated Hip Adduction Isometrics with Ball - 1-3 x daily - 7 x weekly - 2-3 sets - 10 reps - Seated Hip Abduction with Resistance - 1-3 x daily - 7 x weekly - 2-3 sets - 10 reps Normal [facility] THERAPY NTon 09-03-2024 THERAPY NT HNO ID: [id number] Author: ESTRELLA SORTO, PT, DPT Service: ? Author Type: Physical Therapist Type: Therapy (PT/OT/Speech/Resp) Filed: 09/03/2024 09:22 Note Text: Program_ID:[id number] Access Code: [email or web address] URL: [email or web address] Date: 09-03-2024 Prepared By: Estrella Sorto Program Notes Exercises - Seated Hip Adduction Isometrics with Ball - 1-3 x daily - 7 x weekly - 2-3 sets - 10 reps - Seated Hip Abduction with Resistance - 1-3 x daily - 7 x weekly - 2-3 sets - 10 reps Normal [facility] Urinalysis macro (dipstick) panel (U)on 08-24-2024 Bilirubin, UA Negative Negative - 4(70) +++ mg/dL [facility] Blood, UA Negative Negative - 50 Delbert/mcL [facility] Clarity, UA Clear [facility] Color, UA Yellow [facility] Glucose, UA Negative Negative - 2000(110) ++++ mg/dL [facility] Interpretation and review of laboratory results Normal [facility] Ketones, UA Negative Negative - 160(16) ++++ mg/dL [facility] Leukocytes, UA Negative Negative - 500+++ Baltazar/mcL [facility] Nitrite, UA Negative Negative - Positive [facility] pH, UA 6.5 5 - 9 [facility] Protein, UA Negative Negative - 2000(20) ++++ mg/dL [facility] Spec Grav, UA 1.025 1 - 1.03 [facility] Urobilinogen, UA 0.2 0.2 - 12 mg/dL [facility] No Panel Informationon 08-17 Interpreted by: Marina [...] care of your patient Follow-up ======== Per [facility] visit to follow, plan for serial [...] EFW (oz) 4 oz EFW by: Hadlock ([id number]-FL) Extended Production Support Manager 3.4 mm Head / Face / Neck [...] Disorder, Cervical Shortening. History ====== General History Ylwqcw674 cm Height (ft)5 ft Height (in)6 in Previous Outcomes Gravida2 Para1 Children born living ?37w1 Pregnancies delivered at term (T)1 Living children (L)1 Other:Vaginal Delivery Maternal Assessment Fepwdd225 cm Height (ft)5 ft Height (in)6 in Bkwpnp67 kg Weight (lb)131 lb Weight gain0 kg Weight gain (lb)0 lb BMI21.14 kg/m Physical Exam Initial weight (lb)131 lb ========= Tony . Number of fetuses: 1 Dating ====== GA by prior inaoazemcu80 w + 6 d ELLIOTT by prior [...] care of your patient Follow-up ======== Per [facility] visit to follow, plan for serial [...] (lb)3 lb EFW (oz)4 oz EFW by:Hadlock (OMS-YR-LB-FL) Extended Vp3.4 mm Head / Face / Neck Cephalic index0.77 24% Nicolaides Extremities / Bony Struc FL / BPD0.75 FL / HC0.20 FL / AC0.22 Other Structures GTZ728 bpm Anatomy Cranium:Normal Lateral ventricles:Normal Midline falx:Normal [...] Disorder, Cervical Shortening. History ====== General History Aisurn056 cm Height (ft)5 ft Height (in)6 in Previous Outcomes Gravida2 Para1 Children born living ?37w1 Pregnancies delivered at term (T)1 Living children (L)1 Other:Vaginal Delivery Maternal Assessment Iosens550 cm Height (ft)5 ft Height (in)6 in Hbhwkm45 kg Weight (lb)131 lb Weight gain0 kg Weight gain (lb)0 lb BMI21.14 kg/m Physical Exam Initial weight (lb)131 lb ========= Tony . Number of fetuses: 1 Dating ====== GA by prior ldnqxyyeuc76 w + 6 d ELLIOTT by prior [...] not included)... [facility] Work Phone: Radiology Study observation (narrative) [facility] Work Phone: No Panel InformationOrdered By: Marina Ordoñez on 08-17-2024 [facility] Work Phone: POCT UA Automated manually r esultedon 08-17-2024 Appearance (U) Clear Clear [facility] Work Phone: [phone] Glucose Test strip (U) [Mass/Vol] Negative NEGATIVE mg/dl [facility] Work Phone: [phone] Hemoglobin Ql (U) Negative NEGATIVE [facility] Work Phone: [phone] Interpretation and review of laboratory results Normal [facility] Work Phone: [phone] Leukocyte esterase Test strip Ql (U) Negative NEGATIVE [facility] Work Phone: [phone] Nitrite Ql (U) Negative NEGATIVE [facility] Work Phone: [phone] pH (U) 7.0 [pH] No Reference Range Established [facility] Work Phone: [phone] POC Bilirubin, Urine Negative NEGATIVE [facility] Work Phone: [phone] POC Color, Urine Yellow Straw, Yellow, Light-Yellow [facility] Work Phone: [phone] POC Ketones, Urine Negative NEGATIVE mg/dl [facility] Work Phone: [phone] POC Protein, Urine Negative NEGATIVE, 30 (1+) mg/dl [facility] Work Phone: [phone] POC Specific [place], Urine 1.025 1.005 - 1.035 [facility] Work Phone: [phone] POC Urobilinogen, Urine 0.2 0.2, 1.0 EU/DL [facility] Work Phone: [phone] [facility] Work Phone: [phone] US BIOPHYSICAL PROFILE WO NON STRESS TESTINGon [...] care of your patient Follow-up ======== Per [facility] visit to follow, plan for serial [...] EFW (oz) 4 oz EFW by: Hadlock ([id number]-EZ-LR-FL) Extended Production Support Manager 3.4 mm Head / Face / Neck [...] care of yo (more content not included)... [facility] US OB FOLLOW UP TRANSABDOMIN AL APPROACHon 08-17-2024 US OB FOLLOW UP TRANSABDOMINAL APPROACH Interpreted [...] care of your patient Follow-up ======== Per [facility] visit to follow, plan for serial [...] EFW (oz) 4 oz EFW by: Hadlock (VEF-ZF-NC-FL) Extended Production Support Manager 3.4 mm Head / Face / Neck [...] of yo (more content not included)... Normal [facility] Urinalysis macro (dipstick) panel (U)on 08-10-2024 Bilirubin, UA Negative Negative - 4(70) +++ mg/dL [facility] Blood, UA Negative Negative - 50 Delbert/mcL [facility] Clarity, UA Clear [facility] Color, UA Yellow [facility] Glucose, UA Negative Negative - 2000(110) ++++ mg/dL [facility] Interpretation and review of laboratory results Normal [facility] Ketones, UA Negative Negative - 160(16) ++++ mg/dL [facility] Leukocytes, UA Negative Negative - 500+++ Baltazar/mcL [facility] Nitrite, UA Negative Negative - Positive [facility] pH, UA 5.5 5 - 9 [facility] Protein, UA Negative Negative - 2000(20) ++++ mg/dL [facility] Spec Grav, UA 1.015 1 - 1.03 [facility] Urobilinogen, UA 1.0 0.2 - 12 mg/dL [facility] CBC W Auto Differential pane l (Bld)on 07-19-2024 Basophils (Bld) [#/Vol] 0.05 10*3/uL Normal <0.11 [facility] Comment on above: Order Comment: Speci men Type: BLOOD SPECIMENOrdering Facility: [facility] Address: [address] [place] [address] Performed By: #### 5 7021-8 ####[facility] LABCLIA [id number] [place] [address] [place] Basophils/100 WBC (Bld) 0.6 % Normal [facility] Comment on above: Order Comment: Speci men Type: BLOOD SPECIMENOrdering Facility: [facility] Address: [address] [place] [address] Performed By: #### 5 7021-8 ####[facility] LABCLIA [id number] [place] [address] [place] Differential cell count method Nom (Bld) Auto Normal [facility] Comment on above: Order Comment: Speci men Type: BLOOD SPECIMENOrdering Facility: [facility] Address: [address] [place] [address] Performed By: #### 5 7021-8 ####[facility] LABCLIA [id number] [place] [address] [place] Eosinophils (Bld) [#/Vol] 0.10 10*3/uL Normal <0.46 [facility] Comment on above: Order Comment: Speci men Type: BLOOD SPECIMENOrdering Facility: [facility] Address: [address] [place] [address] Performed By: #### 5 7021-8 ####[facility] LABCLIA [id number] [place] [address] [place] Eosinophils/100 WBC (Bld) 1.2 % Normal [facility] Comment on above: Order Comment: Speci men Type: BLOOD SPECIMENOrdering Facility: [facility] Address: [address] [place] [address] Performed By: #### 5 7021-8 ####[facility] LABCLIA [id number] [place] [address] [place] Erythrocyte distribution width (RBC) [Ratio] 14.7 % Normal 11.5-15.0 [facility] Comment on above: Order Comment: Speci men Type: BLOOD SPECIMENOrdering Facility: [facility] Address: [address] [place] [address] Performed By: #### 5 7021-8 ####[facility] LABCLIA [id number] [place] [address] [place] Hematocrit (Bld) [Volume fraction] 39.3 % Normal 36.0-46.0 [facility] Comment on above: Order Comment: Speci men Type: BLOOD SPECIMENOrdering Facility: [facility] Address: [address] [place] [address] Performed By: #### 5 7021-8 ####[facility] LABCLIA [id number] [place] [address] [place] Hemoglobin (Bld) [Mass/Vol] 12.4 g/dL Normal 11.5-15.5 [facility] Comment on above: Order Comment: Speci men Type: BLOOD SPECIMENOrdering Facility: [facility] Address: [address] [place] [address] Performed By: #### 5 7021-8 ####[facility] LABCLIA [id number] [place] [address] [place] Immature granulocytes (Bld) [#/Vol] 0.04 10*3/uL Normal <0.10 [facility] Comment on above: Order Comment: Speci men Type: BLOOD SPECIMENOrdering Facility: [facility] Address: [address] [place] [address] Performed By: #### 5 7021-8 ####[facility] LABCLIA [id number] [place] [address] [place] Immature granulocytes/100 WBC (Bld) 0.5 % Normal [facility] Comment on above: Order Comment: Speci men Type: BLOOD SPECIMENOrdering Facility: [facility] Address: [address] [place] [address] Performed By: #### 5 7021-8 ####[facility] LABIA [id number] [place] [address] [place] Lymphocytes (Bld) [#/Vol] 1.58 10*3/uL Normal 1.00-4.00 [facility] Comment on above: Order Comment: Speci men Type: BLOOD SPECIMENOrdering Facility: [facility] Address: [address] [place] [address] Performed By: #### 5 7021-8 ####[facility] LABCLIA [id number] [place] [address] [place] Lymphocytes/100 WBC (Bld) 19.1 % Normal [facility] Comment on above: Order Comment: Speci men Type: BLOOD SPECIMENOrdering Facility: [facility] Address: [address] [place] [address] Performed By: #### 5 7021-8 ####[facility] LABCLIA [id number] [place] [address] [place] MCH (RBC) [Entitic mass] 27.1 pg Normal 26.0-34.0 [facility] Comment on above: Order Comment: Speci men Type: BLOOD SPECIMENOrdering Facility: [facility] Address: [address] [place] [address] Performed By: #### 5 7021-8 ####[facility] LABCLIA [id number] [place] [address] [place] MCHC (RBC) [Mass/Vol] 31.6 g/dL Normal 30.5-36.0 [facility] Comment on above: Order Comment: Speci men Type: BLOOD SPECIMENOrdering Facility: [facility] Address: [address] [place] [address] Performed By: #### 5 7021-8 ####[facility] LABCLIA [id number] [place] [address] [place] MCV (RBC) [Entitic vol] 86.0 fL Normal 80.0-100.0 [facility] Comment on above: Order Comment: Speci men Type: BLOOD SPECIMENOrdering Facility: [facility] Address: [address] [place] [address] Performed By: #### 5 7021-8 ####[facility] LABIA [id number] [place] [address] [place] Monocytes (Bld) [#/Vol] 0.58 10*3/uL Normal <0.87 [facility] Comment on above: Order Comment: Speci men Type: BLOOD SPECIMENOrdering Facility: [facility] Address: [address] [place] [address] Performed By: #### 5 7021-8 ####[facility] LABCLIA [id number] [place] [address] [place] Monocytes/100 WBC (Bld) 7.0 % Normal [facility] Comment on above: Order Comment: Speci men Type: BLOOD SPECIMENOrdering Facility: [facility] Address: [address] [place] [address] Performed By: #### 5 7021-8 ####[facility] LABIA [id number] [place] [address] [place] Neutrophils (Bld) [#/Vol] 5.91 10*3/uL Normal 1.45-7.50 [facility] Comment on above: Order Comment: Speci men Type: BLOOD SPECIMENOrdering Facility: [facility] Address: [address] [place] [address] Performed By: #### 5 7021-8 ####[facility] LABCLIA [id number] [place] [address] [place] Neutrophils/100 WBC (Bld) 71.6 % Normal [facility] Comment on above: Order Comment: Speci men Type: BLOOD SPECIMENOrdering Facility: [facility] Address: [address] [place] [address] Performed By: #### 5 7021-8 ####[facility] LABCLIA [id number] [place] [address] [place] Nucleated RBC (Bld) [#/Vol] 10*3/uL Normal <0.01 [facility] Comment on above: Order Comment: Speci men Type: BLOOD SPECIMENOrdering Facility: [facility] Address: [address] [place] [address] Performed By: #### 5 7021-8 ####[facility] LABIA [id number] [place] [address] [place] Nucleated RBC/100 WBC (Bld) [Ratio] 0.0 /100 WBC Normal [facility] Comment on above: Order Comment: Speci men Type: BLOOD SPECIMENOrdering Facility: [facility] Address: [address] [place] [address] Performed By: #### 5 7021-8 ####[facility] LABCLIA [id number] [place] [address] [place] Platelet mean volume (Bld) [Entitic vol] 13.2 fL High 9.0-12.7 [facility] Comment on above: Order Comment: Speci men Type: BLOOD SPECIMENOrdering Facility: [facility] Address: [address] [place] [address] Performed By: #### 5 7021-8 ####[facility] LABIA [id number] [place] [address] [place] Platelets (Bld) [#/Vol] 187 10*3/uL Normal 150-400 [facility] Comment on above: Order Comment: Speci men Type: BLOOD SPECIMENOrdering Facility: [facility] Address: [address] [place] [address] Performed By: #### 5 7021-8 ####[facility] LABIA [id number] [place] [address] [place] RBC (Bld) [#/Vol] 4.57 10*6/uL Normal 3.90-5.20 [facility] Comment on above: Order Comment: Speci men Type: BLOOD SPECIMENOrdering Facility: [facility] Address: [address] [place] [address] Performed By: #### 5 7021-8 ####[facility] LABIA [id number] [place] [address] [place] WBC (Bld) [#/Vol] 8.26 10*3/uL Normal 3.70-11.00 [facility] Comment on above: Order Comment: Speci men Type: BLOOD SPECIMENOrdering Facility: [facility] Address: [address] [place] [address] Performed By: #### 5 7021-8 ####[facility] LABIA [id number] [place] [address] [place] CNOVon 07-19-2024 CNOV Office Visit ([facility] ) ----- CAROL ANN MARTINEZ ([id number]) 1985 F Date Time Provider Department 07/19/24 12:[address] During your visit today, [...] the hip. She is not taken anything lzoq-glq-thygbqc for it. Patient has multiple sclerosis. Her [...] few seconds when she was on a bxrql-qn-xpqqb with her daughter. She told her FREELANCE DISPLAYER about the symptoms she has started to [...] GENERAL APPEAR (more content not included)... Normal [facility] Comprehensive metabolic 2000 panelon 07-19-2024 Albumin [Mass/Vol] 3.7 g/dL Low 3.9-4.9 [facility] Comment on above: Order Comment: Speci men Type: BLOOD SPECIMENOrdering Facility: [facility] Address: [address] [place] [address] Performed By: #### 2 276-4, 43344-5 ####[facility] LABCLIA [id number] [place] [address] [place] ALP [Catalytic activity/Vol] 62 U/L Normal 34-123 [facility] Comment on above: Order Comment: Speci men Type: BLOOD SPECIMENOrdering Facility: [facility] Address: [address] [place] [address] Performed By: #### 2 276-4, 73024-7 ####[facility] LABCLIA [id number] [place] [address] [place] ALT [Catalytic activity/Vol] 15 U/L Normal 7-38 [facility] Comment on above: Order Comment: Speci men Type: BLOOD SPECIMENOrdering Facility: [facility] Address: [address] [place] [address] Performed By: #### 2 276-4, 85397-9 ####[facility] LABCLIA [id number] [place] [address] [place] Anion gap [Moles/Vol] 10 mmol/L Normal 8-15 [facility] Comment on above: Order Comment: Speci men Type: BLOOD SPECIMENOrdering Facility: [facility] Address: [address] [place], [place] [address] Performed By: #### 2 276-4, 81915-1 ####[facility] LABCLIA [id number] [place] [id number] [place] AST [Catalytic activity/Vol] 18 U/L Normal 13-35 [facility] Comment on above: Order Comment: Speci men Type: BLOOD SPECIMENOrdering Facility: [facility] Address: [address] [place] [address] Performed By: #### 2 276-4, 08313-0 ####[facility] LABCLIA [id number] [place] [address] [place] Bilirubin [Mass/Vol] 0.4 mg/dL Normal 0.2-1.3 [facility] Comment on above: Order Comment: Speci men Type: BLOOD SPECIMENOrdering Facility: [facility] Address: [address] [place] [address] Performed By: #### 2 276-4, 46650-7 ####[facility] LABCLIA [id number] [place] [address] [place] Calcium [Mass/Vol] 9.4 mg/dL Normal 8.5-10.2 [facility] Comment on above: Order Comment: Speci men Type: BLOOD SPECIMENOrdering Facility: [facility] Address: [address] [place] [address] Performed By: #### 2 276-4, 47293-1 ####[facility] LABCLIA [id number] [place] [address] [place] Chloride [Moles/Vol] 104 mmol/L Normal 98-107 [facility] Comment on above: Order Comment: Speci men Type: BLOOD SPECIMENOrdering Facility: [facility] Address: [address] [place] [address] Performed By: #### 2 276-4, 99959-7 ####[facility] LABCLIA [id number] [place] [id number] [place] CO2 [Moles/Vol] 22 mmol/L Normal 22-30 [facility] Comment on above: Order Comment: Speci men Type: BLOOD SPECIMENOrdering Facility: [facility] Address: [address] [place] [address] Performed By: #### 2 276-4, 28983-0 ####[facility] LABIA [id number] [place] [address] [place] Creatinine [Mass/Vol] 0.62 mg/dL Normal 0.58-0.96 [facility] Comment on above: Order Comment: Speci men Type: BLOOD SPECIMENOrdering Facility: [facility] Address: [address] [place] [address] Performed By: #### 2 276-4, 21943-4 ####[facility] LABIA [id number] [place] [address] [place] Creatinine and Glomerular filtration rate.predicted panel (S/P/Bld) 117 mL/min/1.73m??? Normal >=60 [facility] Comment on above: Order Comment: Speci men Type: BLOOD SPECIMENOrdering Facility: [facility] Address: [address] [place] [address] Result Comment: Priscila mated Glomerular Filtration Rate [...] actual GFR. Performed By: #### 2 276-4, 98163-9 ####[facility] LABIA [id number] [place] [id number] [place] Glucose [Mass/Vol] 58 mg/dL Low 74-99 [facility] Comment on above: Order Comment: Rylee chauhan Type: BLOOD SPECIMENOrdering Facility: [facility] Address: [address] [place] [address] Result Comment: The [place] Diabetes Association (ADA) provides guidance for cutoff [...] Standards of Medical Care in Diabetes 2016, [place] [employer]. Diabetes Care. 2016.39(Suppl 1). Performed By: #### 2 276-4, 17183-5 ####[facility] LABCLIA [id number] [place] [address] [place] Potassium [Moles/Vol] 3.9 mmol/L Normal 3.7-5.1 [facility] Comment on above: Order Comment: Rylee chauhan Type: BLOOD SPECIMENOrdering Facility: [facility] Address: [address] [place] [address] Performed By: #### 2 276-4, 29721-9 ####[facility] LABCLIA [id number] [place] [address] [place] Protein [Mass/Vol] 7.1 g/dL Normal 6.3-8.0 [facility] Comment on above: Order Comment: Rylee chauhan Type: BLOOD SPECIMENOrdering Facility: [facility] Address: [address] [place] [address] Performed By: #### 2 276-4, 09527-2 ####[facility] LABCLIA [id number] [place] [address] [place] Sodium [Moles/Vol] 136 mmol/L Normal 136-144 [facility] Comment on above: Order Comment: Speci men Type: BLOOD SPECIMENOrdering Facility: [facility] Address: [address] [place] [address] Performed By: #### 2 276-4, 01140-0 ####[facility] LABCLIA [id number] [place] [id number] [place] Urea nitrogen [Mass/Vol] 8 mg/dL Normal 7-21 [facility] Comment on above: Order Comment: Speci men Type: BLOOD SPECIMENOrdering Facility: [facility] Address: [address] [place] [address] Performed By: #### 2 276-4, 57966-7 ####[facility] LABCLIA [id number] [place] [id number] [place] Ferritin SerPl-mCncon 2023 Ferritin [Mass/Vol] 36.5 ng/mL Normal 14.7-205.1 [facility] Comment on above: Order Comment: Speci men Type: BLOOD SPECIMENOrdering Facility: [facility] Address: [address] [place] [address] Performed By: #### 2 276-4, 79313-9 ####[facility] LABCLIA [id number] [place] [id number] [place] POLYSOMNOGRAM (PSG)/HOME SLE EP APNEA TEST (HSAT)on 07-03-2024 POLYSOMNOGRAM (PSG)/HOME SLEEP APNEA TEST (HSAT) [facility] at [address], [address] [address] ; Home Sleep Apnea Test (HSAT) Study Report Name: CAROL ANN MARTINEZ Date of Study: 07/03/2024 [facility]#: [id number] Age: 38 (: 1985) ESS: 0 Neck [...] unattended Type III, minimum of 4 parameters (68473) Procedure: This study was performed using a Type III ambulatory PSG device and was unattended. The patient was instructed on proper use of the device by a registered industrial engineering technologist. The monitored parameters included heart rate, [...] By: Sam Damon (07/08/2024 4:02:15 PM) Normal [facility] OB LIMITED 1+ FETUSESon 0 07-02-2024 [...] Cervix Uterus: Visualiz (more content not included)... [facility] OB TRANSVAGINALon 024 OB TRANSVAGINAL [...] Cervix Uterus: Visualiz (more content not included)... [facility] CNCOon 06-21-2024 CNCO Letter Text Normal [facility] OB DETAIL ANATOMYon 06-14-2024 OB DETAIL [...] EFW (oz) 14 oz EFW by: Hadlock ([id number]) Extended Production Support Manager 5.9 mm CM 3.2 mm 4% Nicolaides [...] Normal LVOT view: Normal 3-vessel view: Normal 2-wvqsva-pdgaeve view: Normal Heart / Thorax Situs: situs [...] Lt neha (more content not included)... Normal [facility] OB TRANSVAGINALon 05-2 024 OB TRANSVAGINAL Interpreted by: Janice Keith [...] EFW (oz) 14 oz EFW by: Hadlock ([id number]) Extended Production Support Manager 5.9 mm CM 3.2 mm 4% Nicolaides [...] Normal LVOT view: Normal 3-vessel view: Normal 6-tiapjm-pzkjdld view: Normal Heart / Thorax Situs: situs [...] Normal Lt neha (more content not included)... [facility] CNPNon 06-11-2024 CNPN Telephone (NEMSMN) ----- CAROL ANN MARTINEZ F ([id number]) 1985 F Date Time Provider Department 06/11/24 CHAMP BAXTER During your visit today, we recorded the following information about you: Champ Baxter LSW 06/11/2024 9:25 AM Signed This DEZ put in a referral to the [facility] for pt to get connected to additional resources. 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 Problem List [...] Status:Closed by CHAMP BAXTER on 06/11/[address] [facility] CAROL ANN MARTINEZ ([id number]) 1985 F Date Time Provider Department 03/24/24 TOR HERNANDEZ During your visit today, we recorded the following information about you: Viviana Castillo 03/24/2024 11:00 AM Signed Patient calls to cancel her Ocrevus infusion scheduled for Friday due to having a positive test stating she doesn't believe she can receive this infusion while . Appointment cancelled. Viviana Castillo Allergies As of Date: 03/24/2024 Noted Allergy [...] Date Reviewed: 01/19/2024 Reviewed by: Kaitlyn Forbes, director market intelligence - Fully Assessed Reason for Visit: Appointment [...] (FLONASE) 50 mcg/actuation nasal spray Use 1 [place] in each nostril once daily. Problem List [...] [R41.841] 07/22/2022 07/17/2023 Encounter Status:Closed by VIVIANA CASTILLO on 03/24/24 Normal [facility] HCG,Quantitativeon HCG,Quantitative 305309.00 m[iU]/mL Normal [facility] Comment on above: Result Comment: Appr oximate Approximate hCG Gestational Age Range (mIU/ml) (weeks) 0.2-1 5-50 1-2 50-500 2-3 100-5,000 3-4 500-10,000 4-5 1,000-50,000 5-6 10,000-100,000 6-8 15,000-200,000 8-12 10,000-100,000 PERFORMED BY: [place] [address] PATHOLOGIST ROUTING CLERK ALEN PRICE M.D. Performed By: #### H CGQNT #### [place] [id number] [facility] US breast BI limitedon 03-17 US breast BI limited [facility] [place] [address] [place] [address] Mammography Report Signed Patient: Carol Ann Martinez MR#: [id number] : 1985 Acct:[id number] Age/Sex: 38 / F ADM Date: 03/17/24 Loc: [place] Room: Type: [facility] Attending Dr: Clarke Hu Copies to: Clarke Lane MD Ordering Provider: Clarke Hu Date of Service: 03/17/24 MM/MM diagnostic mammo BI w/CAD: RT BREAST LUMP ([id number]) US/US breast BI limited: BILATERAL BREAST LUMPS [...] Renetta Chin M.D.03/17/2024 9:57 AM Dictation Location: [facility] Transcribed By: [facility] 03/17/24 0957 Dictated By: Renetta Chin II, MD 03/17/24 0923 Signed By: 03/17/[address] [facility] XR Cervical spine AP and Lat eral and obliqueon 03-08-2024 IMPRESSION: No acute osseous abnormality. Preserved cervical disc spaces and neural foramina. Volunteer Coordinator: [facility] Transcribe Date/Time: Mar 08 2024 4:48P [...] to the patient. DIVISION OF RADIOLOGY Provider, [facility] [...] Preserved cervical disc spaces and neural foramina. Volunteer Coordinator: [facility] Transcribe Date/Time: Mar 08 2024 4:48P Dictated by : VIKTORIYA WALTER MD This examination was interpreted and the report reviewed and electronically signed by: VIKTORIYA WALTER MD on Mar 08 2024 4:50PM [facility] XR Lumbar spine 3 Viewson IMPRESSION: Unremarkable radiographic appearance of the lumbar spine. Volunteer Coordinator: [facility] Transcribe Date/Time: Mar 08 2024 4:47P [...] Unremarkable radiographic appearance of the lumbar spine. Volunteer Coordinator: [facility] Transcribe Date/Time: Mar 08 2024 4:47P Dictated by : VIKTORIYA WALTER MD This examination was interpreted and the report reviewed and electronically signed by: VIKTORIYA WALTER MD on Mar 08 2024 4:48PM EST [facility] XR Lumbar spine 3 ViewsOrder ed By: Ccf Provider on 03-08-2024 [facility] ESR Westergren method (Bld) [Velocity]on 03-05-2024 ESR (Bld) [Velocity] 5 mm/h [facility] Interpretation and review of laboratory results Normal [facility] JOSSELIN BY IFA WITH REFLEXon Nuclear Ab Ql (S) Negative Normal Negative [facility] Comment on above: Order Comment: Speci men Type: BLOOD SPECIMENOrdering Facility: [facility] Address: [address] [place] [address] Result Comment: Anti -nuclear antibody test is used as an aid in diagnosis of systemic autoimmune diseases. Where positive and clinically warranted, follow-up using disease-specific testing is recommended. Low positive titers are not uncommon with advanced age, certain chronic infections, and malignancies among others. Test methodology: Indirect fluorescence immunoassay (IFA) using HEp-2 cells. Performed By: #### A NAIFR ####[facility] LABCLIA [id number] [place] [id number] [place] CBC W Auto Differential pane l (Bld)on 03-04-2024 Basophils (Bld) [#/Vol] 0.04 10*3/uL [facility] Basophils/100 WBC (Bld) 0.5 % [facility] Differential cell count method Nom (Bld) Auto [facility] Eosinophils (Bld) [#/Vol] [facility] Eosinophils/100 WBC (Bld) 0.3 % [facility] Erythrocyte distribution width (RBC) [Ratio] 15.2 % High 11.5 - 15.0 % [facility] Hematocrit (Bld) [Volume fraction] 40.1 % 36.0 - 46.0 % [facility] Hemoglobin (Bld) [Mass/Vol] 12.4 g/dL 11.5 - 15.5 g/dL [facility] Immature granulocytes (Bld) [#/Vol] [facility] Immature granulocytes/100 WBC (Bld) 0.3 % [facility] Interpretation and review of laboratory results Abnormal [facility] Lymphocytes (Bld) [#/Vol] 1.62 10*3/uL [facility] Lymphocytes/100 WBC (Bld) 21.7 % [facility] MCH (RBC) [Entitic mass] 24.1 pg Low 26.0 - 34.0 pg [facility] MCHC (RBC) [Mass/Vol] 30.9 g/dL 30.5 - 36.0 g/dL [facility] MCV (RBC) [Entitic vol] 77.9 fL Low 80.0 - 100.0 fL [facility] Monocytes (Bld) [#/Vol] 0.69 10*3/uL [facility] Monocytes/100 WBC (Bld) 9.2 % [facility] Neutrophils (Bld) [#/Vol] 5.08 10*3/uL [facility] Neutrophils/100 WBC (Bld) 68.0 % [facility] Nucleated RBC (Bld) [#/Vol] [facility] Nucleated RBC/100 WBC (Bld) [Ratio] 0.0 % /100 WBC [facility] Platelet mean volume (Bld) [Entitic vol] [facility] Comment on above: Unable to Report. Platelets (Bld) [#/Vol] 185 10*3/uL [facility] Comment on above: Results checked and verified.No clot detected. RBC (Bld) [#/Vol] 5.15 10*6/uL 3.90 - 5.2 0 m/uL [facility] WBC (Bld) [#/Vol] 7.47 10*3/uL [facility] This is an appended report. These results have been appended to a previously verified report. [facility] Basophils (Bld) [#/Vol] 0.04 10*3/uL Normal <0.11 [facility] Comment on above: Order Comment: Speci men Type: BLOOD SPECIMENOrdering Facility: [facility] Address: [address] [place] [address] Performed By: #### 4 537-7, 85899-2 ####[facility] LABCLIA [id number] [place] [address] [place] Basophils/100 WBC (Bld) 0.5 % Normal [facility] Comment on above: Order Comment: Speci men Type: BLOOD SPECIMENOrdering Facility: [facility] Address: [address] [place] [address] Performed By: #### 4 537-7, 31679-6 ####[facility] LABCLIA [id number] [place] [address] [place] Differential cell count method Nom (Bld) Auto Normal [facility] Comment on above: Order Comment: Speci men Type: BLOOD SPECIMENOrdering Facility: [facility] Address: [address] [place] [address] Performed By: #### 4 537-7, 08874-7 ####[facility] LABCLIA [id number] [place] [address] [place] Eosinophils (Bld) [#/Vol] 10*3/uL Normal <0.46 [facility] Comment on above: Order Comment: Speci men Type: BLOOD SPECIMENOrdering Facility: [facility] Address: [address] [place], [place] [address] Performed By: #### 4 537-7, 54816-1 ####[facility] LABCLIA [id number] [place] [address] [place] Eosinophils/100 WBC (Bld) 0.3 % Normal [facility] Comment on above: Order Comment: Speci men Type: BLOOD SPECIMENOrdering Facility: [facility] Address: [address] [place] [address] Performed By: #### 4 537-7, 22268-6 ####[facility] LABCLIA [id number] [place] [address] [place] Erythrocyte distribution width (RBC) [Ratio] 15.2 % High 11.5-15.0 [facility] Comment on above: Order Comment: Speci men Type: BLOOD SPECIMENOrdering Facility: [facility] Address: [address] [place] [address] Performed By: #### 4 537-7, 89481-2 ####[facility] LABCLIA [id number] [place] [address] [place] Hematocrit (Bld) [Volume fraction] 40.1 % Normal 36.0-46.0 [facility] Comment on above: Order Comment: Speci men Type: BLOOD SPECIMENOrdering Facility: [facility] Address: [address] [place] [address] Performed By: #### 4 537-7, 12984-5 ####[facility] LABCLIA [id number] [place] [address] [place] Hemoglobin (Bld) [Mass/Vol] 12.4 g/dL Normal 11.5-15.5 [facility] Comment on above: Order Comment: Speci men Type: BLOOD SPECIMENOrdering Facility: [facility] Address: [address] [place] [address] Performed By: #### 4 537-7, 18020-7 ####[facility] LABCLIA [id number] [place] [address] [place] Immature granulocytes (Bld) [#/Vol] 10*3/uL Normal <0.10 [facility] Comment on above: Order Comment: Speci men Type: BLOOD SPECIMENOrdering Facility: [facility] Address: [address] [place] [address] Performed By: #### 4 537-7, 60775-0 ####[facility] LABCLIA [id number] [place] [address] [place] Immature granulocytes/100 WBC (Bld) 0.3 % Normal [facility] Comment on above: Order Comment: Speci men Type: BLOOD SPECIMENOrdering Facility: [facility] Address: [address] [place] [address] Performed By: #### 4 537-7, 50142-7 ####[facility] LABCLIA [id number] [place] [address] [place] Lymphocytes (Bld) [#/Vol] 1.62 10*3/uL Normal 1.00-4.00 [facility] Comment on above: Order Comment: Speci men Type: BLOOD SPECIMENOrdering Facility: [facility] Address: [address] [place] [address] Performed By: #### 4 537-7, 25244-1 ####[facility] LABCLIA [id number] [place] [address] [place] Lymphocytes/100 WBC (Bld) 21.7 % Normal [facility] Comment on above: Order Comment: Speci men Type: BLOOD SPECIMENOrdering Facility: [facility] Address: [address] [place] [address] Performed By: #### 4 537-7, 48269-3 ####[facility] LABCLIA [id number] [place] [address] [place] MCH (RBC) [Entitic mass] 24.1 pg Low 26.0-34.0 [facility] Comment on above: Order Comment: Speci men Type: BLOOD SPECIMENOrdering Facility: [facility] Address: [address] [place] [address] Performed By: #### 4 537-7, 57821-8 ####[facility] LABCLIA [id number] [place] [address] [place] MCHC (RBC) [Mass/Vol] 30.9 g/dL Normal 30.5-36.0 [facility] Comment on above: Order Comment: Speci men Type: BLOOD SPECIMENOrdering Facility: [facility] Address: [address] [place] [address] Performed By: #### 4 537-7, 86411-2 ####[facility] LABCLIA [id number] [place] [address] [place] MCV (RBC) [Entitic vol] 77.9 fL Low 80.0-100.0 [facility] Comment on above: Order Comment: Speci men Type: BLOOD SPECIMENOrdering Facility: [facility] Address: [address] [place] [address] Performed By: #### 4 537-7, 23944-2 ####[facility] LABCLIA [id number] [place] [address] [place] Monocytes (Bld) [#/Vol] 0.69 10*3/uL Normal <0.87 [facility] Comment on above: Order Comment: Speci men Type: BLOOD SPECIMENOrdering Facility: [facility] Address: [address] [place] [address] Performed By: #### 4 537-7, 91825-1 ####[facility] LABCLIA [id number] [place] [address] [place] Monocytes/100 WBC (Bld) 9.2 % Normal [facility] Comment on above: Order Comment: Speci men Type: BLOOD SPECIMENOrdering Facility: [facility] Address: [address] [place] [address] Performed By: #### 4 537-7, 70697-2 ####[facility] LABCLIA [id number] [place] [address] [place] Neutrophils (Bld) [#/Vol] 5.08 10*3/uL Normal 1.45-7.50 [facility] Comment on above: Order Comment: Speci men Type: BLOOD SPECIMENOrdering Facility: [facility] Address: [address] [place] [address] Performed By: #### 4 537-7, 28781-5 ####[facility] LABCLIA [id number] [place] [address] [place] Neutrophils/100 WBC (Bld) 68.0 % Normal [facility] Comment on above: Order Comment: Speci men Type: BLOOD SPECIMENOrdering Facility: [facility] Address: [address] [place] [address] Performed By: #### 4 537-7, 83250-6 ####[facility] LABCLIA [id number] [place] [address] [place] Nucleated RBC (Bld) [#/Vol] 10*3/uL Normal <0.01 [facility] Comment on above: Order Comment: Speci men Type: BLOOD SPECIMENOrdering Facility: [facility] Address: [address] [place] [address] Performed By: #### 4 537-7, 03184-9 ####[facility] LABCLIA [id number] [place] [address] [place] Nucleated RBC/100 WBC (Bld) [Ratio] 0.0 /100 WBC Normal [facility] Comment on above: Order Comment: Speci men Type: BLOOD SPECIMENOrdering Facility: [facility] Address: [address] [place] [address] Performed By: #### 4 537-7, 52724-8 ####[facility] LABIA [id number] [place] [id number] [place] Platelet mean volume (Bld) [Entitic vol] Normal [facility] Comment on above: Order Comment: Speci men Type: BLOOD SPECIMENOrdering Facility: [facility] Address: [address] [place] [address] Result Comment: Unab le to Report. Performed By: #### 4 537-7, 56267-4 ####[facility] LABIA [id number] [place] [address] [place] Platelets (Bld) [#/Vol] 185 10*3/uL Normal 150-400 [facility] Comment on above: Order Comment: Speci men Type: BLOOD SPECIMENOrdering Facility: [facility] Address: [address] [place] [address] Result Comment: Resu lts checked and verified.No clot detected. Performed By: #### 4 537-7, 69592-1 ####[facility] LABIA [id number] [place] [address] [place] RBC (Bld) [#/Vol] 5.15 10*6/uL Normal 3.90-5.20 [facility] Comment on above: Order Comment: Speci men Type: BLOOD SPECIMENOrdering Facility: [facility] Address: [address] [place] [address] Performed By: #### 4 537-7, 25337-8 ####[facility] LABIA [id number] [place] [address] [place] WBC (Bld) [#/Vol] 7.47 10*3/uL Normal 3.70-11.00 [facility] Comment on above: Order Comment: Speci men Type: BLOOD SPECIMENOrdering Facility: [facility] Address: [address] [place] [address] Performed By: #### 4 537-7, 90695-0 ####[facility] LABEDDIEIA [id number] [address] STATES OF [facility] CNOVon 03-04-2024 CNOV Office Visit ([facility] ) ----- CAROL ANN MARTINEZ ([id number]) 1985 F Date Time Provider Department 03/04/24 1:00 PM JANICE LAEN [facility] During your visit today, we recorded the following information about you: Temperature Pulse Blood pressure Weight 98.1 degrees 95/minute 101/66 55.7 kg Height 1.689 m Cintia Cadena MA 03/04/2024 1:00 PM Signed [facility] FACTS Please visit our lab at least 3-5 days before your scheduled appointment to have your lab work drawn, if lab work is ordered. This will allow us the ability to review your lab work results with you during your scheduled visit. [facility] HOURS: Lab is open Friday - Friday from 6:30am to 5pm and open 8am -12pm on Saturdays. [facility]RS: Friday- 7:30am to 5:30pm. Fridays [...] medicine, or pediatrics at any of our [facility] locations and main campus. Janice Lane MD 03/04/2024 3:19 PM Signed Carol nAn Martinez is a 38 year old female [...] physical. Patient Instructions [facility] Please visit our lab at least 3-5 days before your scheduled appointment to have your lab work drawn, if lab work is ordered. This will allow us the ability to review your lab work results with you during your scheduled visit. [facility] MCGRATH (more content not included)... Normal [facility] CRP SerPl-mCncon 03-04-2024 CRP [Mass/Vol] mg/L Normal <0.9 [facility] Comment on above: Order Comment: Speci men Type: BLOOD SPECIMENOrdering Facility: [facility] Address: [address] [place] [address] Performed By: #### 1 1572-5, 96252-4, 1987-, 6-4 ####[facility] LABCLIA [id number] [facility] [id number] [address] [place] ESR Westergren method (Bld) [Velocity]on 03-04-2024 ESR (Bld) [Velocity] 5 mm/h Normal 0-20 [facility] Comment on above: Order Comment: Speci men Type: BLOOD SPECIMENOrdering Facility: [facility] Address: [address] [place] [address] Performed By: #### 4 537-7, 35213-2 ####[facility] LABCLIA [id number] [place] [address] [place] Ferritin SerPl-mCncon 2023 Ferritin [Mass/Vol] 14.2 ng/mL Low 14.7-205.1 [facility] Comment on above: Order Comment: Speci men Type: BLOOD SPECIMENOrdering Facility: [facility] Address: [address] [place] [address] Performed By: #### 1 1572-5, 68709-9, 1988-03, 2276-02 ####[facility] LABCLIA [id number] [place] [address] [place] Iron and Iron binding capaci ty panelon 03-04-2024 Iron [Mass/Vol] 90 ug/dL Normal 41-186 [facility] Comment on above: Order Comment: Speci men Type: BLOOD SPECIMENOrdering Facility: [facility] Address: [address] [place] [address] Performed By: #### 1 1572-5, 46903-1, 1988-03, 2276-02 ####[facility] LABIA [id number] [address] [place] Iron binding capacity [Mass/Vol] 351 ug/dL Normal 232-386 [facility] Comment on above: Order Comment: Speci men Type: BLOOD SPECIMENOrdering Facility: [facility] Address: [address] [place] [address] Performed By: #### 1 1572-5, 79222-8, 1988-03, 2276-02 ####[facility] LABIA [id number] [place] [id number] [place] Iron/TIBC [Molar ratio] 25.6 % Normal 15.0-57.0 [facility] Comment on above: Order Comment: Speci men Type: BLOOD SPECIMENOrdering Facility: [facility] Address: [address] [place] [address] Performed By: #### 1 1572-5, 39276-0, 1988-03, 2276-02 ####[facility] LABCLIA [id number] [place] [address] [place] No Panel Informationon 03-04 Radiology Study observation (narrative) [facility] Rheumatoid fact SerPl-aCncon 03-04-2024 Rheumatoid factor Qn [IU]/mL Normal <16 [facility] Comment on above: Order Comment: Speci men Type: BLOOD SPECIMENOrdering Facility: [facility] Address: [address] [place] [address] [place] [address] Performed By: #### 1 1572-5, 77755-3, 1988-03, 2276-02 ####[facility] LABCLIA [id number] [place] [address] [place] Urate SerPl-mCncon Urate [Mass/Vol] 3.1 mg/dL Normal 2.5-6.6 [facility] Comment on above: Order Comment: Speci men Type: BLOOD SPECIMENOrdering Facility: [facility] Address: [address] [place], [place] [address] [address] Performed By: #### 3 084-1 ####[facility] LABIA [id number] [place] [address] [place] XR CERVICAL 4V [...] Preserved cervical disc spaces and neural foramina. Volunteer Coordinator: [facility] Transcribe Date/Time: Mar 08 2024 4:48P Dictated by : VIKTORIYA WALTER MD This examination was interpreted and the report reviewed and electronically signed by: VIKTORIYA WALTER MD on Mar 08 2024 4:50PM EST [id number] Normal [facility] XR LUMBAR 3V AP/LAT/L5-S1on 03-04-2024 XR [...] Unremarkable radiographic appearance of the lumbar spine. Volunteer Coordinator: [facility] Transcribe Date/Time: Mar 08 2024 4:47P Dictated by : VIKTORIYA WALTER MD This examination was interpreted and the report reviewed and electronically signed by: VIKTORIYA WALTER MD on Mar 08 2024 4:48PM EST [id number] Normal [facility] A1C with Estimated Average G adolfogail 02-24-2024 Glucose [Mass/Vol] 100 mg/dL Normal [facility] Comment on above: Result Comment: PERF ORMED BY: [facility] [address] [facility] [place] [address] PATHOLOGIST ROUTING CLERK ALEN PRICE M.D. Performed By: #### P TT, HCGQNT, CBC, PT, T4F, A1C WTH eA, TSH3 #### [facility] [address] HbA1c (Bld) [Mass fraction] 5.1 % Normal 4.3-5.6 [facility] Comment on above: Result Comment: Incr eased risk for diabetes: 5.7 - 6.4 diabetes: >6.4 glycemic control for adults with diabetes: <7.0 Performed By: #### P TT, HCGQNT, CBC, PT, T4F, A1C WTH eA, TSH3 #### [facility] [address] Activated partial thrombopla stin time (aPTT) in platelet poor plasma by coagulation aOrdered By: Clarke Hu on 02-24-2024 aPTT Coag (PPP) [Time] 33.7 s 25.1-36.5 [facility] Comment on above: A hematocrit value g reater than 55% may lead to inaccurate results in coagulation testing. Patients having hematocrit values >55% require a special collection tube for coagulation studies. Please contact the laboratory at [phone] for redraw instructions. Basophils Auto (Bld) [#/Vol] Ordered By: Clarke Hu on 02-24-2024 Basophils (Bld) [#/Vol] 0.0 10*3/uL 0.0-0.2 [facility] Basophils/100 WBC Auto (Bld) Ordered By: Clarke Hu on 02-24-2024 Basophils/100 WBC (Bld) 0.5 % . [facility] Christiano 02-24-2024 [facility] ----- CAROL ANN MARTINEZ ([id number]) 1985 F Date Time Provider Department 02/24/24 TOR HERNANDEZ During your visit today, we recorded the following information about you: Shereen Scott 02/24/2024 2:33 PM Signed [place] Call Name of caller : Milady Relationship to patient: Barney Osorio Return call phone number : [phone] Reason for call : Other : Brief description of concern : The patient is not considered homebound and they are unable to admit the patient. Champ Baxter LSW 02/26/2024 10:08 AM Signed Spoke with [facility], Iris Edge regarding this message. Iris stated she encouraged pt to reach out to her insurance company and request an insurance CM to help her find an outside provider to provide services. Request sent to Tor Hernandez APRN.CNP for orders: non-[facility] outpatient PT, OT and SPT? Once she finds an outside provider, then CF can send the orders. DEZ Archer, [facility] Social Work Tor Hernandez APRN.CNP 02/26/2024 10:23 AM Signed Non-[facility] PT, OT, and ASSISTANT UNIT FORESTER orders placed Tor Hernandez APRN.CNP February 26, 2024 10:23 AM Tor Hernandez APRN.[facility] 02/26/2024 10:24 AM Signed Addended by: TOR [...] Date Reviewed: 01/19/2024 Reviewed by: Kaitlyn Forbes, director market intelligence - Fully Assessed Primary Visit Diagnosis:Multiple sclerosis (HCC) [G35] Order(s):CONSULT TO PHYSICAL THERAPY [9032] Order #: [id number]: 1 FUTURE CONSULT TO ELECTRICAL REPAIRER [085215] Order #: [id number]: 1 FUTURE CONSULT TO SPEECH THERAPY [9787745] Order #: [id number]: 1 FUTURE Prescriptions as of 02/26/2024 - [...] (FLONASE) 50 mcg/actuation nasal spray Use 1 [place] in each nostril once daily. Problem List [...] extremity [R6 (more content not included)... Normal [facility] Choriogonadotropin.beta subu nit [Units/volume] in Serum or PlasmaOrdered By: Clarke Hu on 02-24-2024 HCG.beta subunit Qn 791.11 m[IU]/mL [facility] Comment on above: Approximate Approxim ate hCG Gestational Age Range (mIU/ml) (weeks)0.2-1 5-50 1-2 50-500 2-3 100-5,000 3-4 500-10,000 4-5 1,000-50,000 5-6 10,000-100,000 6-8 15,000-200,000 8-12 10,000-100,000 Complete Blood Count Auto Di ffon 02-24-2024 Basophils (Bld) [#/Vol] 0.0 10*3/uL Normal 0.0-0.2 [facility] Comment on above: Result Comment: PERF ORMED BY: [place] [address] PATHOLOGIST ROUTING CLERK ALEN PRICE M.D. Performed By: #### P TT, HCGQNT, CBC, PT, T4F, A1C WTH eA, TSH3 #### [address] Basophils/100 WBC (Bld) 0.5 % Normal . [facility] Comment on above: Performed By: #### P TT, HCGQNT, CBC, PT, T4F, A1C WTH eA, TSH3 #### [address] Eosinophils (Bld) [#/Vol] 0.0 10*3/uL Normal 0.0-0.45 [facility] Comment on above: Performed By: #### P TT, HCGQNT, CBC, PT, T4F, A1C WTH eA, TSH3 #### [address] Eosinophils/100 WBC (Bld) 0.2 % Normal . [facility] Comment on above: Performed By: #### P TT, HCGQNT, CBC, PT, T4F, A1C WTH eA, TSH3 #### [address] Erythrocyte distribution width (RBC) [Ratio] 15.2 % Normal 11.9-15.3 [facility] Comment on above: Performed By: #### P TT, HCGQNT, CBC, PT, T4F, A1C WTH eA, TSH3 #### [address] Hematocrit (Bld) [Volume fraction] 36.9 % Normal 34.0-46.4 [facility] Comment on above: Performed By: #### P TT, HCGQNT, CBC, PT, T4F, A1C WTH eA, TSH3 #### [address] Hemoglobin (Bld) [Mass/Vol] 11.7 g/dL Low 11.8-15.4 [facility] Comment on above: Performed By: #### P TT, HCGQNT, CBC, PT, T4F, A1C WTH eA, TSH3 #### [address] Lymphocytes (Bld) [#/Vol] 2.1 10*3/uL Normal 1.00-4.8 [facility] Comment on above: Performed By: #### P TT, HCGQNT, CBC, PT, T4F, A1C WTH eA, TSH3 #### [address] Lymphocytes/100 WBC (Bld) 26.9 % Normal . [facility] Comment on above: Performed By: #### P TT, HCGQNT, CBC, PT, T4F, A1C WTH eA, TSH3 #### [address] MCH (RBC) [Entitic mass] 24.4 pg Low 24.7-34.3 [facility] Comment on above: Performed By: #### P TT, HCGQNT, CBC, PT, T4F, A1C WTH eA, TSH3 #### [address] MCV (RBC) [Entitic vol] 76.5 fL Low 80-100 [facility] Comment on above: Performed By: #### P TT, HCGQNT, CBC, PT, T4F, A1C WTH eA, TSH3 #### [address] Mean Corpuscular HGB Conc 31.8 g/dL Low 32.0-35.0 [facility] Comment on above: Performed By: #### P TT, HCGQNT, CBC, PT, T4F, A1C WTH eA, TSH3 #### [place] [address] [place] Monocytes (Bld) [#/Vol] 0.7 10*3/uL Normal 0.0-0.8 [facility] Comment on above: Performed By: #### P TT, HCGQNT, CBC, PT, T4F, A1C WTH eA, TSH3 #### [address] Monocytes/100 WBC (Bld) 9.3 % Normal . [facility] Comment on above: Performed By: #### P TT, HCGQNT, CBC, PT, T4F, A1C WTH eA, TSH3 #### [address] Neutrophils (Bld) [#/Vol] 5.0 10*3/uL Normal 1.8-7.7 [facility] Comment on above: Performed By: #### P TT, HCGQNT, CBC, PT, T4F, A1C WTH eA, TSH3 #### [address] Neutrophils/100 WBC (Bld) 63.1 % Normal . [facility] Comment on above: Performed By: #### P TT, HCGQNT, CBC, PT, T4F, A1C WTH eA, TSH3 #### [address] NRBC% 0.0 /100{WBC} Normal 0-0.5 [facility] Comment on above: Performed By: #### P TT, HCGQNT, CBC, PT, T4F, A1C WTH eA, TSH3 #### [place] [address] [place] Platelet mean volume (Bld) [Entitic vol] 11.1 fL High 6.3-10.7 [facility] Comment on above: Performed By: #### P TT, HCGQNT, CBC, PT, T4F, A1C WTH eA, TSH3 #### [address] Platelets (Bld) [#/Vol] 187 10*3/uL Normal 150-450 [facility] Comment on above: Performed By: #### P TT, HCGQNT, CBC, PT, T4F, A1C WTH eA, TSH3 #### [address] RBC (Bld) [#/Vol] 4.82 10*6/uL Normal 3.60-5.00 [facility] Comment on above: Performed By: #### P TT, HCGQNT, CBC, PT, T4F, A1C WTH eA, TSH3 #### [address] WBC (Bld) [#/Vol] 7.9 10*3/uL Normal 3.8-11.6 [facility] Comment on above: Performed By: #### P TT, HCGQNT, CBC, PT, T4F, A1C WTH eA, TSH3 #### [address] Eosinophils Auto (Bld) [#/Vo l]Ordered By: Clarke Hu on 02-24-2024 Eosinophils (Bld) [#/Vol] 0.0 10*3/uL 0.0-0.45 [facility] Eosinophils/100 WBC Auto (Bl d)Ordered By: Clarke Hu on 02-24-2024 Eosinophils/100 WBC (Bld) 0.2 % . [facility] Erythrocyte distribution wid th Auto (RBC) [Ratio]Ordered By: Clarke Hu on 02-24-2024 Erythrocyte distribution width (RBC) [Ratio] 15.2 % 11.9-15.3 [facility] Free T4 (Free Thyroxine)on 0 02-24-2024 Free T4 [Mass/Vol] 0.82 ng/dL Normal 0.61-1.12 [facility] Comment on above: Performed By: #### P TT, HCGQNT, CBC, PT, T4F, A1C WTH eA, TSH3 #### [address] Glucose mean value [Mass/vol ume] in Blood Estimated from glycated hemoglobinOrdered By: Clarke Hu on 02-24-2024 Average glucose Estimated from glycated hemoglobin (Bld) [Mass/Vol] 100 mg/dL [facility] HCG,Quantitativeon HCG,Quantitative 791.11 m[iU]/mL Normal [facility] Comment on above: Result Comment: Appr oximate Approximate hCG Gestational Age Range (mIU/ml) (weeks) 0.2-1 5-50 1-2 50-500 2-3 100-5,000 3-4 500-10,000 4-5 1,000-50,000 5-6 10,000-100,000 6-8 15,000-200,000 8-12 10,000-100,000 PERFORMED BY: [place] [address] PATHOLOGIST ROUTING CLERK ALEN PRICE M.D. Performed By: #### P TT, HCGQNT, CBC, PT, T4F, A1C WTH eA, TSH3 #### [address] Hematocrit Auto (Bld) [Volum e fraction]Ordered By: Clarke Hu on 02-24-2024 Hematocrit (Bld) [Volume fraction] 36.9 % 34.0-46.4 [facility] Hemoglobin A1c percentageOrd ered By: Clarke Hu on 02-24-2024 HbA1c (Bld) [Mass fraction] 5.1 % 4.3-5.6 [facility] Comment on above: Increased risk for d iabetes: 5.7 - 6.4diabetes: >6.4glycemic control for adults with diabetes: <7.0 Hemoglobin [Mass/volume] in BloodOrdered By: Clarke Hu on 02-24-2024 Hemoglobin (Bld) [Mass/Vol] 11.7 g/dL 11.8-15.4 [facility] INR in Platelet poor plasma by Coagulation assayOrdered By: Clarke Hu on 02-24-2024 INR Coag (PPP) [Relative time] 1.1 {INR} [facility] Comment on above: INR Therapeutic [...] RBC Auto (Bld) [#/Vol] 7.9 10*3/uL 3.8-11.6 [facility] Lymphocytes Auto (Bld) [#/Vo l]Ordered By: Clarke Hu on 02-24-2024 Lymphocytes (Bld) [#/Vol] 2.1 10*3/uL 1.00-4.8 [facility] Lymphocytes/100 WBC Auto (Bl d)Ordered By: Clarke Hu on 02-24-2024 Lymphocytes/100 WBC (Bld) 26.9 % . [facility] MCH Auto (RBC) [Entitic mass ]Ordered By: Clarke Hu on 02-24-2024 MCH (RBC) [Entitic mass] 24.4 pg 24.7-34.3 [facility] MCHC Auto (RBC) [Mass/Vol]Or dered By: Clarke Hu on 02-24-2024 MCHC (RBC) [Mass/Vol] 31.8 g/dL 32.0-35.0 [facility] MCV Auto (RBC) [Entitic vol] Ordered By: Clarke Hu on 02-24-2024 MCV (RBC) [Entitic vol] 76.5 fL 80-100 [facility] Monocytes Auto (Bld) [#/Vol] Ordered By: Clarke uH on 02-24-2024 Monocytes (Bld) [#/Vol] 0.7 10*3/uL 0.0-0.8 [facility] Monocytes/100 WBC Auto (Bld) Ordered By: Clarke Hu on 02-24-2024 Monocytes/100 WBC (Bld) 9.3 % . [facility] Neutrophils Auto (Bld) [#/Vo l]Ordered By: Clarke Hu on 02-24-2024 Neutrophils (Bld) [#/Vol] 5.0 10*3/uL 1.8-7.7 [facility] Neutrophils/100 WBC Auto (Bl d)Ordered By: Clarke Hu on 02-24-2024 Neutrophils/100 WBC (Bld) 63.1 % . [facility] Nucleated erythrocytes [Pres ence] in Blood by Automated countOrdered By: Clarke Hu on 02-24-2024 Nucleated RBC Auto Ql (Bld) 0.0 /100{WBC} 0-0.5 [facility] Partial Thromboplastin Timeo n 02-24-2024 aPTT Coag (Bld) [Time] 33.7 s Normal 25.1-36.5 [facility] Comment on above: Result Comment: A he matocrit value greater than 55% may lead to inaccurate results in coagulation testing. Patients having hematocrit values >55% require a special collection tube for coagulation studies. Please contact the laboratory at [phone] for redraw instructions. PERFORMED BY: [place] [address] PATHOLOGIST ROUTING CLERK ALEN PRICE M.D. Performed By: #### P TT, HCGQNT, CBC, PT, T4F, A1C WTH eA, TSH3 #### [facility] [address] [place] [address] Platelet mean volume Auto (B ld) [Entitic vol]Ordered By: Clarke Hu on 02-24-2024 Platelet mean volume (Bld) [Entitic vol] 11.1 fL 6.3-10.7 [facility] Platelets Auto (Bld) [#/Vol] Ordered By: Clarke Hu on 02-24-2024 Platelets (Bld) [#/Vol] 187 10*3/uL 150-450 [facility] Prothrombin Time INRon 02-23 INR Coag (PPP) [Relative time] 1.1 {INR} Normal [facility] Comment on above: [...] PT, T4F, A1C WTH eA, TSH3 #### [facility] [address] [place] [id number] [facility] PT Coag (PPP) [Time] 12.2 s Normal 9.0-12.9 [facility] Comment on above: Result Comment: A he matocrit value greater than 55% may lead to inaccurate results in coagulation testing. Patients having hematocrit values >55% require a special collection tube for coagulation studies. Please contact the laboratory at [phone] for redraw instructions. Performed By: #### P TT, HCGQNT, CBC, PT, T4F, A1C [facility] eA, TSH3 #### [facility] [address] [place] [id number] [facility] Prothrombin time (PT)Ordered By: Clarke Hu on 02-24-2024 PT Coag (PPP) [Time] 12.2 s 9.0-12.9 [facility] Comment on above: A hematocrit value g reater than 55% may lead to inaccurate results in coagulation testing. Patients having hematocrit values >55% require a special collection tube for coagulation studies. Please contact the laboratory at [phone] for redraw instructions. RBC Auto (Bld) [#/Vol]Ordere d By: Clarke Hu on 02-24-2024 RBC (Bld) [#/Vol] 4.82 10*6/uL 3.60-5.00 [facility] Thyroid Stimulating Hormoneo n 02-24-2024 TSH Qn 0.96 m[IU]/L Normal 0.45-5.33 [facility] Comment on above: Performed By: #### P TT, HCGQNT, CBC, PT, T4F, A1C WT eA, TSH3 #### [facility] [address] [place] [id number] [facility] Thyrotropin [Units/volume] i n Serum or PlasmaOrdered By: Clarke Hu on 02-24-2024 TSH Qn 0.96 m[IU]/L 0.45-5.33 [facility] Thyroxine (T4) free [Mass/vo lume] in Serum or PlasmaOrdered By: Clarke Hu on 02-24-2024 Free T4 [Mass/Vol] 0.82 ng/dL 0.61-1.12 [facility] WBC Auto (Bld) [#/Vol]Ordere d By: Clarke Hu on 02-24-2024 WBC (Bld) [#/Vol] 7.9 10*3/uL 3.8-11.6 [facility] CNPNon 02-18-2024 CNPN Telephone (NEMN) ----- CAROL ANN MARTINEZ F ([id number]) 1985 F Date Time Provider Department 02/18/24 CHAMP BAXTER SAMEER During your visit today, we recorded the following information about you: Diana Garcia 02/18/2024 8:55 AM Signed Tex Call Name of caller : Jena [facility] Relationship to patient: Self Return call phone number : [phone] Reason for call : Would like a call back regarding the patient Radha DEZ Bradley 02/18/2024 2:04 PM Signed Responded via e-mail [...] Date Reviewed: 01/19/2024 Reviewed by: Kaitlyn Forbes, director market intelligence - Fully Assessed Reason for Visit: Patient [...] (FLONASE) 50 mcg/actuation nasal spray Use 1 [place] in each nostril once daily. Problem List [...] by CHAMP BAXTER on 02/18/24 [facility] CNPNon 02-03-2024 CNPN Telephone (NEMSMN) ----- CAROL ANN MARTINEZ F ([id number]) 1985 F Date Time Provider Department 02/03/24 CHAMP BAXTER During your visit today, we recorded the following information about you: Clarice Zepeda HUC 02/03/2024 1:33 PM Signed Tex Call Name of caller : Iris Edge Relationship to patient: [facility] Return call phone number : [phone] Reason for call : Other : Brief [...] order when completed. DEZ Archer, [facility] Social Work Allergies As of [...] Date Reviewed: 01/19/2024 Reviewed by: Kaitlyn Forbes, director market intelligence - Fully Assessed Reason for Visit: Patient Question [0217] Prescriptions as of 02/04/2024 - Norethindrone, Contraceptive, [...] (FLONASE) 50 mcg/actuation nasal spray Use 1 [place] in each nostril once daily. Problem List [...] Status:Closed by CHAMP BAXTER on 02/04/24 Normal [facility] MR Thoracic spine WO and W c ontrast Joe 01-19-2024 [facility] MRI THORACIC SPINE WO/W IVCO Non 01-19-2024 [...] identified to suggest active or progressive disease. Volunteer Coordinator: ANGEL Transcribe Date/Time: Jan 19 2024 3:31P Dictated by : LOVE WHARTON MD This examination was interpreted and the report reviewed and electronically signed by: LOVE WHARTON MD on Jan 19 2024 3:43PM EST [id number] [facility] Christiano 01-05-2024 CNPN Telephone (NEMSMN) ----- MARTINEZCAROL ANN GREWAL F ([id number]) 1985 F Date Time Provider Department 01/05/24 CHAMP BAXTER During your visit today, we recorded the following information about you: ErikaNadine 01/05/2024 9:56 AM Signed Wasnt able to [...] Date Reviewed: 12/25/2023 Reviewed by: Tor Hernandez APRN.FIREPOT OPERATOR AND TENDER - Fully Assessed Reason for Visit: Appointment [...] (FLONASE) 50 mcg/actuation nasal spray Use 1 [place] in each nostril once daily. Problem List [...] [R41.841] 07/22/2022 07/17/2023 Encounter Status:Closed by NADINE VERAS on 01/05/24 Normal [facility] CNOVlouie 12-25-2023 CNOV Office Visit (NEMSLR ) ----- CAROL ANN MARTINEZ ([id number]) 1985 F Date Time Provider Department 12/25/23 11:00 AM TOR HERNANDEZ NEMSLR During your visit today, we recorded the following information about you: Pulse Blood pressure Weight Last Period 87/minute 95/67 56.8 kg 12/21/23 Tor Hernandez APRN.FIREPOT OPERATOR AND TENDER 12/25/2023 12:09 PM [facility] FOLLOWUP/ESTABLISHED PATIENT VISIT PRINCIPAL NEUROLOGIC DIAGNOSIS: Multiple Sclerosis DISEASE SUMMARY Date of onset: 03/2007 Date of diagnosis of MS: 03/2007 Disease course at onset: Relapsing-Remitting Current disease course: Progressive without relapses Previous disease therapies: - Betaseron [id number] - Copaxone [id number] - Tysabri 2009-Summer 2019 (stopped due to [...] over 3 weeks following occipital relase - [id number] recurrent OS ON - [id number] several relapses including L numbness, weakness, constipation, urinary urgency - 2019 R weakness and numbness needing a wheelchair, hospitalized at [facility] (off Tysabri x3 months due to [...] 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, ot, 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 Normal [facility] CNPNon 12-25-2023 CNPN Telephone (HCSIND) ----- CAROL ANN MARTINEZ F ([id number]) 1985 F Date Time Provider Department 12/25/23 LISA ELLIOTT HCSIND During your visit today, we recorded the following information about you: Lisa Elliott 12/25/2023 2:08 PM Addendum Spoke with Roxy from [facility] and accepted the patient for Home Care. Thank you for the referral of your patient to [facility]. At this time, we are unable [...] for the referral of your patient to [facility]. At this time, we are unable to accommodate your patient's needs in a safe and timely fashion. In order to help your patient receive quality home care, we will assist in finding alternate staffing. I have forwarded the referral to [facility], and it is declined. I will notify you when we have an accepting agency. Thank you. Thank you for the referral of your patient to [facility]. At this time, we are unable to accommodate your patient's needs in a safe and timely fashion. In order to help your patient receive quality home care, we will assist in finding alternate staffing. I have forwarded the referral to [facility], and it is declined. I will [...] Date Reviewed: 12/25/2023 Reviewed by: Tor Hernandez APRN.FIREPOT OPERATOR AND TENDER - Fully Assessed Reason for Visit: Home [...] (FLONASE) 50 mcg/actuation nasal spray Use 1 [place] in each nostril once daily. Problem List As Of Date 12/25/2023 Noted Resolved Multiple sclerosis (HCC) [G35] 11/15/2019 Chronic insomnia [F51.04] 01/04/2020 AMA (advanced maternal age) primigravida 35+, s*2020 01/11/2021 History of loop electrosurgical excision proced*2020 01/11/2021 Poor growth affecting (more content not included)... Normal [facility] HCG ( test) Ql (U)o n 12-23-2023 Interpretation and review of laboratory results Normal [facility] Preg Test, Ur Negative [facility] - Microbiology an d Antimicrobial susceptibilityon 12-23-2023 SARS-CoV-2 (COVID-19) RNA DEIRDRE+probe Ql (Unsp spec) Negative [facility] No Panel Informationon 12-23 FLU A Negative [facility] FLU B Negative [facility] Interpretation and review of laboratory results Normal [facility] Toño 11-28-2023 L Specimen: BS Received: 11/28/23 Status: ALLISON Yoon Num: [id number] Spec Type: Surgical Subm Dr: Clarke Hu Tissues: A Endometrium - Curettings (EM) Procedures: HE/2, Gross/Micro L4 Age/ Patient Sex Location Account Attending Physician Annette Martinezerasmodayana F 38/F [facility] [id number] Clarke Hu SPEC NUM: [id number] RECD: 11/28/23 STATUS: ALLISON YOONDenise NUM: [id number] ALLAN: 11/28/[address]: Clarke Hu ENTERED: 11/28/[address] [facility] DR: Sherry,Lab SPEC TYPE: Surgical DEPT: [...] in one cassette labeled A1. CPT Codes 55089 Specimen: [id number] Received: 11/28/23 Status: ALLISON Yoon Num: [id number] Spec Type: Surgical Subm Dr: Clarke Hu Tissues: A Endometrium - Curettings (EMC) Procedures: HE/2, Jamila/Micro L4 Patient: Carol Ann Martinez [id number] (Continued) Signed (signature on file) Edu Watkins MD 12/01/232158 Normal [facility] 10-13-2023 [facility] Social Work (HEMASA) ----- CAROL ANN MARTINEZ ([id number]) 1985 F Date Time Provider Department 10/13/23 [...] (FLONASE) 50 mcg/actuation nasal spray Use 1 [place] in each nostril once daily. Problem List [...] Status:Closed by ALEXANDRA HOGAN on 10/13/23 Normal [facility] CBC W Auto Differential pane l (Bld)on 09-25-2023 Basophils (Bld) [#/Vol] 0.03 10*3/uL <0.11 k/uL [facility] Basophils/100 WBC (Bld) 0.8 % [facility] Differential cell count method Nom (Bld) Auto [facility] Eosinophils (Bld) [#/Vol] 0.07 10*3/uL <0.46 k/uL [facility] Eosinophils/100 WBC (Bld) 1.8 % [facility] Erythrocyte distribution width (RBC) [Ratio] 17.1 % High 11.5 - 15.0 % [facility] Hematocrit (Bld) [Volume fraction] 41.0 % 36.0 - 46.0 % [facility] Hemoglobin (Bld) [Mass/Vol] 12.5 g/dL 11.5 - 15.5 g/dL [facility] Immature granulocytes (Bld) [#/Vol] <0.10 k/uL [facility] Immature granulocytes/100 WBC (Bld) 0.0 % [facility] Lymphocytes (Bld) [#/Vol] 2.63 10*3/uL 1.00 - 4.00 k/uL [facility] Lymphocytes/100 WBC (Bld) 66.4 % [facility] MCH (RBC) [Entitic mass] 23.7 pg Low 26.0 - 34.0 pg [facility] MCHC (RBC) [Mass/Vol] 30.5 g/dL 30.5 - 36.0 g/dL [facility] MCV (RBC) [Entitic vol] 77.7 fL Low 80.0 - 100.0 fL [facility] Monocytes (Bld) [#/Vol] 0.51 10*3/uL <0.87 k/uL [facility] Monocytes/100 WBC (Bld) 12.9 % [facility] Neutrophils (Bld) [#/Vol] 0.72 10*3/uL Low 1.45 - 7.50 k/uL [facility] Neutrophils/100 WBC (Bld) 18.1 % [facility] Nucleated RBC (Bld) [#/Vol] <0.01 k/uL [facility] Nucleated RBC/100 WBC (Bld) [Ratio] 0.0 /100 WBC [facility] Platelet mean volume (Bld) [Entitic vol] [facility] Platelets (Bld) [#/Vol] 179 10*3/uL 150 - 400 k/uL [facility] RBC (Bld) [#/Vol] 5.28 10*6/uL High 3.90 - 5.2 0 m/uL [facility] WBC (Bld) [#/Vol] 3.96 10*3/uL 3.70 - 11. 00 k/uL [facility] Comprehensive metabolic 2000 panelon 09-25-2023 Albumin [Mass/Vol] 4.5 g/dL 3.9 - 4.9 g/dL [facility] ALP [Catalytic activity/Vol] 58 U/L 34 - 123 U/L [facility] ALT [Catalytic activity/Vol] 11 U/L 7 - 38 U/L [facility] Anion gap [Moles/Vol] 9 mmol/L 9 - 18 mmol/L [facility] AST [Catalytic activity/Vol] 17 U/L 13 - 35 U/L [facility] Bilirubin [Mass/Vol] 0.5 mg/dL 0.2 - 1 .3 mg/dL [facility] Calcium [Mass/Vol] 9.5 mg/dL 8.5 - 10. 2 mg/dL [facility] Chloride [Moles/Vol] 106 mmol/L High 97 - 10 5 mmol/L [facility] CO2 [Moles/Vol] 26 mmol/L 22 - 30 mmol/L [facility] Creatinine [Mass/Vol] 0.95 mg/dL 0.58 - 0.96 mg/dL [facility] Estimated Glomerular Filtration Rate 79 mL/min/1.73m >=60 mL/min/1.73m [facility] Glucose [Mass/Vol] 89 mg/dL 74 - 99 mg/dL [facility] Potassium [Moles/Vol] 3.6 mmol/L Low 3.7 - 5.1 mmol/L [facility] Protein [Mass/Vol] 7.4 g/dL 6.3 - 8.0 g/dL [facility] Sodium [Moles/Vol] 141 mmol/L 136 - 144 mmol/L [facility] Urea nitrogen [Mass/Vol] 14 mg/dL 7 - 21 mg/dL [facility] HBV surface Ab Ql (S)on 09-10 HBV surface Ab Qn (S) 528.76 mIU/mL [facility] HEP B CORE AB TOTALon 2022 HBV core Ab Ql (S) Negative Negative [facility] HEP B SURF ABon 09-25-2023 HBV surface Ab Ql (S) Positive [facility] HEP B SURF AG SCRNon 023 HBV surface Ag Ql (S) Negative Negative [facility] HEPATITIS C ANTIBODY IA WITH CONFIRMATIONon 09-25-2023 HCV Ab Ql (S) Negative Negative [facility] PELVIC US WHIon 08-26-2023 [facility] Trichmonas Vaginalis Screen (EIA)on 01-24-2023 Trichomonas Vaginalis Screen (EIA) Negative Normal [facility] Comment on above: Performed By: #### E TRIC #### [facility] [address] [place] [address] Wet Prep-Medical Purposes On berry 01-24-2023 Wet Prep Clue Cellls 1+ Abnormal [facility] Comment on above: Performed By: #### W ETPR #### [facility] [address] [place] [address] Wet Prep Trichomonas See EIA Normal [facility] Comment on above: Performed By: #### W ETPR #### [facility] [address] [place] [address] Wet Prep Yeast None Seen Normal [facility] Comment on above: Performed By: #### W ETPR #### [facility] [address] [place] [address] CBC W Auto Differential pane l (Bld)on 01-17-2023 Basophils (Bld) [#/Vol] 0.07 10*3/uL <0.11 k/uL [facility] Basophils/100 WBC (Bld) 1.0 % [facility] Differential cell count method Nom (Bld) Auto [facility] Eosinophils (Bld) [#/Vol] 0.07 10*3/uL <0.46 k/uL [facility] Eosinophils/100 WBC (Bld) 1.0 % [facility] Erythrocyte distribution width (RBC) [Ratio] 15.5 % High 11.5 - 15.0 % [facility] Hematocrit (Bld) [Volume fraction] 31.5 % Low 36.0 - 46.0 % [facility] Hemoglobin (Bld) [Mass/Vol] 9.4 g/dL Low 11.5 - 15.5 g/dL [facility] Immature granulocytes (Bld) [#/Vol] <0.10 k/uL [facility] Immature granulocytes/100 WBC (Bld) 0.3 % [facility] Lymphocytes (Bld) [#/Vol] 2.30 10*3/uL 1.00 - 4.00 k/uL [facility] Lymphocytes/100 WBC (Bld) 32.7 % [facility] MCH (RBC) [Entitic mass] 22.2 pg Low 26.0 - 34.0 pg [facility] MCHC (RBC) [Mass/Vol] 29.8 g/dL Low 30.5 - 36.0 g/dL [facility] MCV (RBC) [Entitic vol] 74.3 fL Low 80.0 - 100.0 fL [facility] Monocytes (Bld) [#/Vol] 0.51 10*3/uL <0.87 k/uL [facility] Monocytes/100 WBC (Bld) 7.2 % [facility] Neutrophils (Bld) [#/Vol] 4.07 10*3/uL 1.45 - 7.50 k/uL [facility] Neutrophils/100 WBC (Bld) 57.8 % [facility] Nucleated RBC (Bld) [#/Vol] <0.01 k/uL [facility] Nucleated RBC/100 WBC (Bld) [Ratio] 0.0 /100 WBC [facility] Platelet mean volume (Bld) [Entitic vol] 13.6 fL High 9.0 - 12.7 fL [facility] Platelets (Bld) [#/Vol] 304 10*3/uL 150 - 400 k/uL [facility] RBC (Bld) [#/Vol] 4.24 10*6/uL 3.90 - 5.2 0 m/uL [facility] WBC (Bld) [#/Vol] 7.04 10*3/uL 3.70 - 11. 00 k/uL [facility] Comprehensive metabolic 2000 panelon 01-17-2023 Albumin [Mass/Vol] 4.5 g/dL 3.9 - 4.9 g/dL [facility] ALP [Catalytic activity/Vol] 62 U/L 34 - 123 U/L [facility] ALT [Catalytic activity/Vol] 11 U/L 7 - 38 U/L [facility] Anion gap [Moles/Vol] 9 mmol/L 9 - 18 mmol/L [facility] AST [Catalytic activity/Vol] 18 U/L 13 - 35 U/L [facility] Bilirubin [Mass/Vol] 0.3 mg/dL 0.2 - 1 .3 mg/dL [facility] Calcium [Mass/Vol] 9.8 mg/dL 8.5 - 10. 2 mg/dL [facility] Chloride [Moles/Vol] 104 mmol/L 97 - 10 5 mmol/L [facility] CO2 [Moles/Vol] 26 mmol/L 22 - 30 mmol/L [facility] Creatinine [Mass/Vol] 0.79 mg/dL 0.58 - 0.96 mg/dL [facility] Estimated Glomerular Filtration Rate 99 mL/min/1.73m >=60 mL/min/1.73m [facility] Glucose [Mass/Vol] 69 mg/dL Low 74 - 99 mg/dL [facility] Potassium [Moles/Vol] 4.2 mmol/L 3.7 - 5.1 mmol/L [facility] Protein [Mass/Vol] 7.9 g/dL 6.3 - 8.0 g/dL [facility] Sodium [Moles/Vol] 139 mmol/L 136 - 144 mmol/L [facility] Urea nitrogen [Mass/Vol] 11 mg/dL 7 - 21 mg/dL [facility] MR Brain WO and W contrast I [...] Improvement: None. New Enhancing Lesions: None T2 [place] of Disease: Mild. Parenchymal Volume Loss: None. [...] history of multiple sclerosis. Cord T2 Plaque [place]: Moderate New T2 Lesions: None Interval Cord [...] equal to 2mm). DIVISION OF RADIOLOGY Provider, [facility] - 01/02/2023 * * *Final Report* * [...] Improvement: None. New Enhancing Lesions: None T2 [place] of Disease: Mild. Parenchymal Volume Loss: None. [...] history of multiple sclerosis. Cord T2 Plaque [place]: Moderate New T2 Lesions: None Interval Cord [...] vertebrae with counting from the craniocervical junction. Volunteer Coordinator: ANGEL Transcribe Date/Time: Jan 02 2023 12:13P Dictated by : JEANIE MAKI MD This examination was interpreted and the report reviewed and electronically signed by: JEANIE MAKI MD on Jan 02 2023 12:23PM [facility] MR Cervical spine WO and W c donrast Joe 01-02-2023 * * *Final Report* * [...] Improvement: None. New Enhancing Lesions: None T2 [place] of Disease: Mild. Parenchymal Volume Loss: None. [...] history of multiple sclerosis. Cord T2 Plaque [place]: Moderate New T2 Lesions: None Interval Cord [...] equal to 2mm). DIVISION OF RADIOLOGY [facility] Improvement: None. New Enhancing Lesions: None T2 [place] of Disease: Mild. Parenchymal Volume Loss: None. [...] history of multiple sclerosis. Cord T2 Plaque [place]: Moderate New T2 Lesions: None Interval Cord [...] vertebrae with counting from the craniocervical junction. Volunteer Coordinator: [facility] Transcribe Date/Time: Jan 02 2023 12:13P Dictated by : JEANIE MAKI MD This examination was interpreted and the report reviewed and electronically signed by: JEANIE MAKI MD on Jan 02 2023 12:23PM EST [facility] No Panel Informationon 01-02 IMPRESSION: Multiple intracranial [...] vertebrae with counting from the craniocervical junction. Volunteer Coordinator: [facility] Transcribe Date/Time: Jan 02 2023 12:13P Dictated by : JEANIE MAKI MD This examination was interpreted and the report reviewed and electronically signed by: JEANIE MAKI MD on Jan 02 2023 12:23PM [facility] DIVISION OF RADIOLOGY Brain Enhancing Lesions None [facility] Brain Interval Improvement None [facility] Brain New T2 Lesions None Site [facility] Brain Other Significant MRI Findings None. [facility] Brain Parenchymal Volume Loss None [facility] Brain T2 [place] of Disease Mild [facility] Cervical spine enhancing lesions None [facility] Cervical Spine New T2 Lesions None [facility] Cervical Spine T2 [place] of Disease Moderate [facility] Radiology Study observation (narrative) [facility] No Panel InformationOrdered By: [facility] Provider on 01-02-2023 [facility] C.trachomatis N.gonorrhoeae DNAon 12-10-2022 C. trachomatis DNA DEIRDRE+probe Ql (Unsp spec) Negative Normal Negative [facility] N. gonorrhoeae DNA DEIRDRE+probe Ql (Unsp spec) Negative Normal Negative [facility] Trichmonas Vaginalis Screen (EIA)on 12-06-2022 Trichomonas Vaginalis Screen (EIA) Negative Normal [facility] Comment on above: Performed By: #### E TRIC #### [facility] [address] [place] [address] [employer] On berry 12-06-2022 Wet Prep Clue Cellls 1+ Abnormal [facility] Comment on above: Performed By: #### W ETPR #### [facility] [address] [place] [address] Wet Prep Trichomonas See EIA Normal [facility] Comment on above: Performed By: #### W ETPR #### [facility] [address] [place] [address] Wet Prep Yeast None Seen Normal [facility] Comment on above: Performed By: #### W ETPR #### [facility] [address] [place] [address] Albumin [Mass/volume] in Ser um or PlasmaOrdered By: Vishal Agarwal on 10-27-2022 Albumin [Mass/Vol] 4.1 g/dL 3.2-5.5 [facility] Basophils Auto (Bld) [#/Vol] Ordered By: Vishal Agarwal on 10-27-2022 Basophils (Bld) [#/Vol] 0.0 10*3/uL 0.0-0.2 [facility] Basophils/100 WBC Auto (Bld) Ordered By: Vishal Agarwal on 10-27-2022 Basophils/100 WBC (Bld) 0.4 % . [facility] COVID CepheidOrdered By: Brook Agarwal on 10-27-2022 SARS-CoV-2 (COVID-19) Ab IA Ql Positive Negative [facility] Comment on above: This is a duplicate Cep[employer] Xpert Xpress CoV-2/Flu/RSV Plus RNA by RT-PCR result to be used for statistical tracking purpose only. SARS-CoV-2 (COVID-19) RNA DEIRDRE+probe Ql (Unsp spec) [facility] Creatinine and Glomerular fi ltration rate.predicted panel (S/P/Bld)Ordered By: Vishal Agarwal on 10-27-2022 Creatinine [Mass/Vol] 0.96 mg/dL 0.44-1.03 [facility] Eosinophils Auto (Bld) [#/Vo l]Ordered By: Vishal Agarwal on 10-27-2022 Eosinophils (Bld) [#/Vol] 0.0 10*3/uL 0.0-0.45 [facility] Eosinophils/100 WBC Auto (Bl d)Ordered By: Vishal Agarwal on 10-27-2022 Eosinophils/100 WBC (Bld) 0.0 % . [facility] Erythrocyte distribution wid th Auto (RBC) [Ratio]Ordered By: Vishal Agarwal on 10-27-2022 Erythrocyte distribution width (RBC) [Ratio] 17.4 % 11.9-15.3 [facility] Estimated glomerular filtrat ion rate (GFR) non- AmericanOrdered By: Vishal Agarwal on 10-27-2022 GFR/1.73 sq M.predicted among non-blacks MDRD (S/P/Bld) [Vol rate/Area] > 60 mL/Min [facility] Globulin Calc (S) [Mass/Vol] Ordered By: Vishal Agarwal on 10-27-2022 Globulin (S) [Mass/Vol] 3.5 g/dL [facility] Hematocrit Auto (Bld) [Volum e fraction]Ordered By: Vishal Agarwal on 10-27-2022 Hematocrit (Bld) [Volume fraction] 38.7 % 34.0-46.4 [facility] Hemoglobin [Mass/volume] in BloodOrdered By: Vishal Agarwal on 10-27-2022 Hemoglobin (Bld) [Mass/Vol] 12.1 g/dL 11.8-15.4 [facility] Leukocytes [#/volume] correc che for nucleated erythrocytes in Blood by Automated counOrdered By: Vishal Agarwal on 10-27-2022 WBC corrected for nucl RBC Auto (Bld) [#/Vol] 4.5 10*3/uL 3.8-11.6 [facility] Lymphocytes Auto (Bld) [#/Vo l]Ordered By: Vishal Agarwal on 10-27-2022 Lymphocytes (Bld) [#/Vol] 0.5 10*3/uL 1.00-4.8 [facility] Lymphocytes/100 WBC Auto (Bl d)Ordered By: Vishal Agarwal on 10-27-2022 Lymphocytes/100 WBC (Bld) 10.8 % . [facility] MCH Auto (RBC) [Entitic mass ]Ordered By: Vishal Agarwal on 10-27-2022 MCH (RBC) [Entitic mass] 23.7 pg 24.7-34.3 [facility] MCHC Auto (RBC) [Mass/Vol]Or dered By: Vishal Agarwal on 10-27-2022 MCHC (RBC) [Mass/Vol] 31.2 g/dL 32.0-35.0 [facility] MCV Auto (RBC) [Entitic vol] Ordered By: Vishal Agarwal on 10-27-2022 MCV (RBC) [Entitic vol] 76.0 fL 80-100 [facility] Monocyte distribution width [Entitic volume] in Blood by AutomatedOrdered By: Vishal Agarwal on 10-27-2022 Monocyte distribution width Auto (Bld) [Entitic vol] 24.86 % 0.00-20.00 [facility] Comment on above: For adults in ED, MD W > 20.0 may be associated with a higher risk of sepsis during the first 12 hrs of hospital admission Monocytes Auto (Bld) [#/Vol] Ordered By: Vishal Agarwal on 10-27-2022 Monocytes (Bld) [#/Vol] 0.8 10*3/uL 0.0-0.8 [facility] Monocytes/100 WBC Auto (Bld) Ordered By: Vishal Agarwal on 10-27-2022 Monocytes/100 WBC (Bld) 16.8 % . [facility] Neutrophils Auto (Bld) [#/Vo l]Ordered By: Vishal Agarwal on 10-27-2022 Neutrophils (Bld) [#/Vol] 3.2 10*3/uL 1.8-7.7 [facility] Neutrophils/100 WBC Auto (Bl d)Ordered By: Vishal Agarwal on 10-27-2022 Neutrophils/100 WBC (Bld) 72.0 % . [facility] No Panel InformationOrdered By: Vishal Agarwal on 10-27-2022 Estimated GFR () > 60 mL/Min [facility] Comment on above: GFR estimated refere nce range: According to KDOQI guidelines, <60 ml/min/1.73m2 is sufficient to diagnose a patient with chronic kidney disease. Pharmacy Creatinine Clearance (Chem 75.11 [facility] Nucleated erythrocytes [Pres ence] in Blood by Automated countOrdered By: Vishal Agarwal on 10-27-2022 Nucleated RBC Auto Ql (Bld) 0.1 /100{WBC} 0-0.5 [facility] Platelet mean volume Auto (B ld) [Entitic vol]Ordered By: Vishal Agarwal on 10-27-2022 Platelet mean volume (Bld) [Entitic vol] 11.0 fL 6.3-10.7 [facility] Platelets Auto (Bld) [#/Vol] Ordered By: Vishal Agarwal on 10-27-2022 Platelets (Bld) [#/Vol] 148 10*3/uL 150-450 [facility] Protein [Mass/volume] in Ser um or PlasmaOrdered By: Vishal Agarwal on 10-27-2022 Protein [Mass/Vol] 7.6 g/dL 6.1-7.9 [facility] RBC Auto (Bld) [#/Vol]Ordere d By: Vishal Agarwal on 10-27-2022 RBC (Bld) [#/Vol] 5.10 10*6/uL 3.60-5.00 [facility] Serum or plasma alanine gannon otransferase measurement without P-5'-P (enzymatic activiOrdered By: Vishal Agarwal on 10-27-2022 ALT No additional P-5'-P [Catalytic activity/Vol] 18 U/L 10-60 [facility] Serum or plasma albumin/glob ulin mass ratioOrdered By: Vishal Agarwal on 10-27-2022 Albumin/Globulin [Mass ratio] 1.2 {ratio} [facility] Serum or plasma alkaline bull sphatase measurement (enzymatic activity/volume)Ordered By: Vishal Agarwal on 10-27-2022 ALP [Catalytic activity/Vol] 43 U/L 32-92 [facility] Serum or plasma anion gap de terminationOrdered By: Vishal Agarwal on 10-27-2022 Anion gap [Moles/Vol] 13.5 mmol/L 6.0-15.0 [facility] Serum or plasma aspartate am inotransferase measurement (enzymatic activity/volume)Ordered By: Vishal Agarwal on 10-27-2022 AST [Catalytic activity/Vol] 24 U/L 10-42 [facility] Serum or plasma calcium scotty urement (mass/volume)Ordered By: Vishal Agarwal on 10-27-2022 Calcium [Mass/Vol] 9.2 mg/dL 8.2-10.2 [facility] Serum or plasma chloride suzie surement (moles/volume)Ordered By: Vishal Agarwal on 10-27-2022 Chloride [Moles/Vol] 101 mmol/L 95-114 [facility] Serum or plasma glucose scotty urement (mass/volume)Ordered By: Vishal Agarwal on 10-27-2022 Glucose [Mass/Vol] 102 mg/dL 70-100 [facility] Comment on above: ADA recommended refe rence rangeRandom Glucose Reference Range is dependent on time and content of last meal. Glucose of more than 200 mg/dL in a nonstressed, ambulatory subject supports the diagnosis of Diabetes Mellitus. Serum or plasma potassium me asurement (moles/volume)Ordered By: Vishal Agarwal on 10-27-2022 Potassium [Moles/Vol] 3.7 mmol/L 3.5-5.1 [facility] Serum or plasma sodium measu rement (moles/volume)Ordered By: Vishal Agarwal on 10-27-2022 Sodium [Moles/Vol] 134 mmol/L 136-146 [facility] Serum or plasma total biliru bin measurement (mass/volume)Ordered By: Vishal Agarwal on 10-27-2022 Bilirubin [Mass/Vol] 0.8 mg/dL 0.3-1.2 [facility] Serum or plasma total carbon dioxide measurement (moles/volume)Ordered By: Vishal Agarwal on 10-27-2022 CO2 [Moles/Vol] 23.2 mmol/L 22.0-30.0 [facility] Serum or plasma urea nitroge n measurement (mass/volume)Ordered By: Vishal Agarwal on 10-27-2022 Urea nitrogen [Mass/Vol] 10 mg/dL 9-23 [facility] WBC Auto (Bld) [#/Vol]Ordere d By: Vishal Agarwal on 10-27-2022 WBC (Bld) [#/Vol] 4.5 10*3/uL 3.8-11.6 [facility] HBV surface Ab IA Ql (S)on 1 11-27-2021 HBV surface Ag Ql (S) Negative Negative [facility] HEP B CORE AB TOTALon 2021 HBV core Ab Ql (S) Negative Negative [facility] HEP B SURF AB QUALon 022 HBV surface Ab Ql (S) Positive Abnormal Negative [facility] HEP C AB IA W/CONF SCRNon HCV Ab Ql (S) Negative Negative [facility] MR Brain WO and W contrast I [...] Improvement: None. New Enhancing Lesions: None T2 [place] of Disease: Mild. Parenchymal Volume Loss: None. Other Significant Findings: None. MR CERVICAL: Counting reference: Craniocervical junction. Anatomic Variants: None. Alignment: Alignment is anatomic. Craniocervical Junction: Craniocervical junction is normal. Cord Findings: Patchy foci of hyperintensity are noted in the cervical cord on the T2, IR and axial gradient echo images compatible with the history of multiple sclerosis. Cord T2 Plaque [place]: Moderate New T2 Lesions: None Interval Cord [...] history of multiple sclerosis. Cord T2 Plaque [place]: Moderate New T2 Lesions: Greater than three [...] equal to 2mm). DIVISION OF RADIOLOGY Provider, [facility] - 07/23/2022 * * *Final Report* * * DATE OF EXAM: Jul 23 2022 10:56AM [facility] 0295 - MRI BRAIN WO/W IVCON / [...] Improvement: None. New Enhancing Lesions: None T2 [place] of Disease: Mild. Parenchymal Volume Loss: None. Other Significant Findings: None. MR CERVICAL: Counting reference: Craniocervical junction. Anatomic Variants: None. Alignment: Alignment is anatomic. Craniocervical Junction: Craniocervical junction is normal. Cord Findings: Patchy foci of hyperintensity are noted in the cervical cord on the T2, IR and axial gradient echo images compatible with the history of multiple sclerosis. Cord T2 Plaque [place]: Moderate New T2 Lesions: None Interval Cord [...] history of multiple sclerosis. Cord T2 Plaque [place]: Moderate New T2 Lesions: Greater than three [...] and assume there are 5 lumbar-type vertebrae. Volunteer Coordinator: ANGEL Transcribe Date/Time: Jul 23 2022 11:16A Dictated by : ANIRUDH NUÑEZ MD This examination was interpreted and the report reviewed and electronically signed by: ANIRUDH NUÑEZ MD on Jul 23 2022 6:11PM [facility] MR Cervical spine WO and W [...] Improvement: None. New Enhancing Lesions: None T2 [place] of Disease: Mild. Parenchymal Volume Loss: None. Other Significant Findings: None. MR CERVICAL: Counting reference: Craniocervical junction. Anatomic Variants: None. Alignment: Alignment is anatomic. Craniocervical Junction: Craniocervical junction is normal. Cord Findings: Patchy foci of hyperintensity are noted in the cervical cord on the T2, IR and axial gradient echo images compatible with the history of multiple sclerosis. Cord T2 Plaque [place]: Moderate New T2 Lesions: None Interval Cord [...] history of multiple sclerosis. Cord T2 Plaque [place]: Moderate New T2 Lesions: Greater than three [...] equal to 2mm). DIVISION OF RADIOLOGY Provider, [facility] - 07/23/2022 * * *Final Report* * * DATE OF EXAM: Jul 23 2022 10:56AM [facility] 0298 - MRI CERVICAL SPINE WO/W IVCON [...] Improvement: None. New Enhancing Lesions: None T2 [place] of Disease: Mild. Parenchymal Volume Loss: None. Other Significant Findings: None. MR CERVICAL: Counting reference: Craniocervical junction. Anatomic Variants: None. Alignment: Alignment is anatomic. Craniocervical Junction: Craniocervical junction is normal. Cord Findings: Patchy foci of hyperintensity are noted in the cervical cord on the T2, IR and axial gradient echo images compatible with the history of multiple sclerosis. Cord T2 Plaque [place]: Moderate New T2 Lesions: None Interval Cord [...] history of multiple sclerosis. Cord T2 Plaque [place]: Moderate New T2 Lesions: Greater than three [...] and assume there are 5 lumbar-type vertebrae. Volunteer Coordinator: [employer] Transcribe Date/Time: Jul 23 2022 11:16A Dictated by : ANIRUDH NUÑEZ MD This examination was interpreted and the report reviewed and electronically signed by: ANIRUDH NUÑEZ MD on Jul 23 2022 6:11PM [facility] MR Thoracic spine WO and W [...] Improvement: None. New Enhancing Lesions: None T2 [place] of Disease: Mild. Parenchymal Volume Loss: None. Other Significant Findings: None. MR CERVICAL: Counting reference: Craniocervical junction. Anatomic Variants: None. Alignment: Alignment is anatomic. Craniocervical Junction: Craniocervical junction is normal. Cord Findings: Patchy foci of hyperintensity are noted in the cervical cord on the T2, IR and axial gradient echo images compatible with the history of multiple sclerosis. Cord T2 Plaque [place]: Moderate New T2 Lesions: None Interval Cord [...] history of multiple sclerosis. Cord T2 Plaque [place]: Moderate New T2 Lesions: Greater than three [...] equal to 2mm). DIVISION OF RADIOLOGY Provider, [facility] - 07/23/2022 * * *Final Report* * * DATE OF EXAM: Jul 23 2022 10:56AM [facility] 0326 - MRI THORACIC SPINE WO/W IVCON [...] Improvement: None. New Enhancing Lesions: None T2 [place] of Disease: Mild. Parenchymal Volume Loss: None. Other Significant Findings: None. MR CERVICAL: Counting reference: Craniocervical junction. Anatomic Variants: None. Alignment: Alignment is anatomic. Craniocervical Junction: Craniocervical junction is normal. Cord Findings: Patchy foci of hyperintensity are noted in the cervical cord on the T2, IR and axial gradient echo images compatible with the history of multiple sclerosis. Cord T2 Plaque [place]: Moderate New T2 Lesions: None Interval Cord [...] history of multiple sclerosis. Cord T2 Plaque [place]: Moderate New T2 Lesions: Greater than three [...] and assume there are 5 lumbar-type vertebrae. Volunteer Coordinator: [facility] Transcribe Date/Time: Jul 23 2022 11:16A Dictated by : ANIRUDH NUÑEZ MD This examination was interpreted and the report reviewed and electronically signed by: ANIRUDH NUÑEZ MD on Jul 23 2022 6:11PM EST [facility] No Panel Informationon 07-23 IMPRESSION: Multiple intracranial [...] and assume there are 5 lumbar-type vertebrae. Volunteer Coordinator: [facility] Transcribe Date/Time: Jul 23 2022 11:16A Dictated by : ANIRUDH NUÑEZ MD This examination was interpreted and the report reviewed and electronically signed by: ANIRUDH NUÑEZ MD on Jul 23 2022 6:11PM [facility] DIVISION OF RADIOLOGY Radiology Study observation (narrative) [facility] No Panel InformationOrdered By: [facility]cf Provider on 07-23-2022 [facility] CBC W Auto Differential pane l (Bld)on 04-25-2022 Abs Immature Gran <0.03 <0.10 k/uL [facility] Basophils (Bld) [#/Vol] 0.03 10*3/uL <0.11 k/uL [facility] Basophils/100 WBC (Bld) 0.6 % [facility] Differential cell count method Nom (Bld) Auto [facility] Eosinophils (Bld) [#/Vol] 0.10 10*3/uL <0.46 k/uL [facility] Eosinophils/100 WBC (Bld) 2.0 % [facility] Erythrocyte distribution width (RBC) [Ratio] 13.9 % 11.5 - 15.0 % [facility] Hematocrit (Bld) [Volume fraction] 38.5 % 36.0 - 46.0 % [facility] Hemoglobin (Bld) [Mass/Vol] 12.0 g/dL 11.5 - 15.5 g/dL [facility] Immature Gran % 0.2 % [facility] Lymphocytes (Bld) [#/Vol] 1.54 10*3/uL 1.00 - 4.00 k/uL [facility] Lymphocytes/100 WBC (Bld) 30.2 % [facility] MCH (RBC) [Entitic mass] 25.4 pg Low 26.0 - 34.0 pg [facility] MCHC (RBC) [Mass/Vol] 31.2 g/dL 30.5 - 36.0 g/dL [facility] MCV (RBC) [Entitic vol] 81.4 fL 80.0 - 100.0 fL [facility] Monocytes (Bld) [#/Vol] 0.66 10*3/uL <0.87 k/uL [facility] Monocytes/100 WBC (Bld) 12.9 % [facility] Neutrophils (Bld) [#/Vol] 2.76 10*3/uL 1.45 - 7.50 k/uL [facility] Neutrophils/100 WBC (Bld) 54.1 % [facility] Nucleated RBC (Bld) [#/Vol] 10*3/uL <0.01 k/uL [facility] Nucleated RBC/100 WBC (Bld) [Ratio] 0.0 /100 WBC [facility] Platelet mean volume (Bld) [Entitic vol] 13.5 fL High 9.0 - 12.7 fL [facility] Platelets (Bld) [#/Vol] 168 10*3/uL 150 - 400 k/uL [facility] RBC (Bld) [#/Vol] 4.73 10*6/uL 3.90 - 5.2 0 m/uL [facility] WBC (Bld) [#/Vol] 5.10 10*3/uL 3.70 - 11. 00 k/uL [facility] URINALYSIS, REFLEX MICROSCOP ICon 04-25-2022 Bilirubin Ql (U) Negative Negative [facility] Clarity (Unsp spec) Clear Clear [facility] Color (U) Light Yellow Yellow [facility] Glucose Test strip (U) [Mass/Vol] Negative Negative [facility] Hemoglobin Ql (U) Negative Negative [facility] Ketones Ql (U) Negative Negative [facility] Leukocyte esterase Test strip Ql (U) Negative Negative [facility] Nitrite Ql (U) Negative Negative [facility] pH (U) 6.0 [pH] 5.0 - 8.0 [facility] Protein (U) [Mass/Vol] Negative Negative [facility] Specific gravity (U) [Rel density] 1.021 1.005 - 1.030 [facility] Urobilinogen Ql (U) Negative Negative [facility] CNPNon 11-13-2021 CNPN Telephone (NEADFV) ----- CAROL ANN MARTINEZ ([id number]) 1985 F Date Time Provider Department 11/13/21 [...] (FLONASE) 50 mcg/actuation nasal spray Use 1 [place] in each nostril once daily. - MAGNESIUM ORAL Take 1 tablet by mouth twice daily. - Dqfvutuq-Nq-Ety-Fe-FA ( VITAMIN) tab Take 1 tablet by [...] Encounter Status:Closed by AUDIE GABRIEL on 11/13/21 [facility]-20[facility] ----- CAROL ANN MARTINEZ ([id number]) 1985 F Date Time Provider Department 07/24/21 NIDIA GARCIA NERUSSELLFV During your visit today, we recorded the following information about you: Hannamt Abel Pss 07/24/2021 12:34 PM Signed Patient called stating she is scheduled for an Ocrevus infusion on August 15, but will be out of state in [place]. She would like to have the infusion done there at [facility]. Also,she has new insurance as of May and will need to get the Ocrevus approved through her new insurance ([employer]- ). For questions call patient at [phone] Alexandra Blackman 07/24/2021 1:21 PM Signed Patient called back with a phone number of [phone] for [facility]. The phone # her [place] is [phone]. Audie Gabriel RN 07/24/2021 1:51 PM Signed [...] (FLONASE) 50 mcg/actuation nasal spray Use 1 [place] in each nostril once daily. - MAGNESIUM ORAL Take 1 tablet by mouth twice daily. - Wfgxghkc-Wo-Stm-Fe-FA ( VITAMIN) tab Take 1 tablet by [...] Status:Closed by AUDIE GABRIEL on 07/24/21 Normal [facility] Telephone Encounteron 2020 [employer] Authentication Interface Message Text Patient was identified by name and date of . Patient given message, patient denied additional questions. ----- Message from Sofy Pandya MD sent at 03/22/2021 12:34 PM EDT ----- Please notify neg HPV with ascus pap, OK to f/u in [address] Sofy Pandya Normal [facility] [employer] [facility] Telephone Encounteron 2020 [employer] Interface Message Text ----- Message from Sofy Pandya MD sent at 03/08/2021 2:28 PM EDT ----- Please notify ok Normal [facility] GC/CHLAMYDIA/TRICHOMONAS AMP LIFICATIONon 03-07-2021 GC/CHLAMYDIA/TRICHOMO BERTIN AMPLIFICATION CHLAMYDIA AMPLIFICATION: Negative GC AMPLIFICATION: Negative TRICHOMONAS AMPLIFICATION: Negative Normal Negative [facility] Comment on above: Order Comment: This test is performed using an automated nucleic acid amplification assay ([employer] Performed By: #### G CT #### [facility] [address] [place] [address] HEPATITIS C ANTIBODYon 03-07 HCV Non-Reactive Normal Nonreactive [facility] Comment on above: Performed By: #### H CV #### [facility] [address], [place], HIV1 HIV2 AGAB SCRNon 2020 HIV AG-AB SCREEN Non-Reactive Normal Non-Reactive [facility] Comment on above: Order Comment: HIV Information: ???[place] Rev. code 3701.243(E): This information has been [...] agab scrn #### [facility] [address], [place], HUMAN PAPILLOMA VIRUSon 02-09 HPV HIGH RISK Negative Normal Negative [facility] Comment on above: Order Comment: This test is performed using an automated nucleic acid amplification assay ([employer], [employer] [place], [place]). This assay detects RNA of HPV types 16,18,31,33,35,39,45,51,52,56,58,59,66 and 68 in cervical specimens. Result Comment: A ne gative result does not exclude the possibility of low levels of infection or sampling error. 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 No LMP recorded. Periods are [...] Date * Abnormal Pap smear of cervix 2008-07 in [place]. had LEEP. no abn pap since * [...] Intravenous Push route. * Cholecalciferol 1.25 MG (73493 UT) TABS Take 50,000 Units by mouth once weekly. * Yvrnmtce-Hft-Gr-FA (Mynatal) CAPS Take by mouth. 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 Normal [facility] [employer] Interface Message Text Patient at risk [...] bandage applied. Site appears normal. Normal [facility] Filter Paper Leadon 10-03-20 20 Lead <2 Normal <5 [facility] Lead Interpretation Normal [facility] Comment on above: Result Comment: Occu pationally exposed adults lead >40 requires medical followup. This test was developed and its performance characteristics determined by [facility]. It has not been cleared or approved by the U.S. Food and Drug Administration. The FDA has determined that such clearance or approval is not necessary. This test is used for clinical purposes. It should not be regarded as investigational or for research. Type of Puncture Capillary Specimen Normal [facility] Vital Signs Date Time Vital Sign Value Performing Clinician Facility 10-12-2024 12:01-0500 Body height 168.9 cm Janice Escobar MD Work Phone: [facility] 10-12-2024 12:01-0500 Body mass index (BMI) [Ratio] 22.74 kg/m2 Janice Escobar MD Work Phone: [facility] 10-12-2024 12:01-0500 Body weight 64.86 kg Janice Escobar MD Work Phone: [facility] 10-12-2024 12:01-0500 Diastolic blood pressure 76 mm[Hg] Janice Escobar MD Work Phone: [facility] 10-12-2024 12:01-0500 Heart rate 103 /min Janice Escobar MD Work Phone: [facility] 10-12-2024 12:01-0500 Systolic blood pressure 119 mm[Hg] Janice Escobar MD Work Phone: [facility] 10-04-2024 14:06-0500 Body mass index (BMI) [Ratio] 22.28 kg/m2 Jahaira GRIGGS Work Phone: [facility] 10-04-2024 14:06-0500 Body weight 63.56 kg Jahaira GRIGGS Work Phone: [facility] 10-04-2024 14:06-0500 Diastolic blood pressure 60 mm[Hg] Jahaira GRIGGS Work Phone: [facility] 10-04-2024 14:06-0500 Systolic blood pressure 100 mm[Hg] Jahaira GRIGGS Work Phone: [facility] 09-27-2024 15:20-0500 Body mass index (BMI) [Ratio] 22.44 kg/m2 Clarke Mayte DO Work Phone: [facility] 09-27-2024 15:20-0500 Body weight 64.01 kg Clarke Mayte DO Work Phone: [facility] 09-27-2024 15:20-0500 Diastolic blood pressure 68 mm[Hg] Clarke Mayte DO Work Phone: [facility] 09-27-2024 15:20-0500 Systolic blood pressure 108 mm[Hg] Clarke Mayte DO Work Phone: [facility] 09-22-2024 08:42-0500 Body height 167.6 cm Estella Dutton [facility] 09-22-2024 08:42-0500 Body mass index (BMI) [Ratio] 20.98 kg/m2 Estella Dutton [facility] 09-22-2024 08:42-0500 Body weight 58.97 kg Estella Dutton [facility] 09-21-2024 14:37-0500 Body mass index (BMI) [Ratio] 21.01 kg/m2 Clarke Mayte DO Work Phone: [facility] 09-21-2024 14:37-0500 Body weight 59.93 kg Clarke Mayte DO Work Phone: [facility] 09-21-2024 14:37-0500 Diastolic blood pressure 68 mm[Hg] Clarke Mayte DO Work Phone: [facility] 09-21-2024 14:37-0500 Systolic blood pressure 118 mm[Hg] Clarke Mayte DO Work Phone: [facility] 09-07-2024 14:28-0400 Body mass index (BMI) [Ratio] 22.02 kg/m2 Jahaira GRIGGS Work Phone: [facility] 09-07-2024 14:28-0400 Body weight 62.82 kg Jahaira Byers PA Work Phone: [facility] 09-07-2024 14:28-0400 Diastolic blood pressure 72 mm[Hg] Jahaira Byers PA Work Phone: [facility] 09-07-2024 14:28-0400 Systolic blood pressure 112 mm[Hg] Jahaira Byers PA Work Phone: [facility] 08-26-2024 19:22-0400 Body mass index (BMI) [Ratio] 22.26 kg/m2 Aleyda Hemmer PA Work Phone: [facility] 08-26-2024 19:22-0400 Body temperature 98.01 [degF] Aleyda Hemmer PA Work Phone: [facility] 08-26-2024 19:22-0400 Body weight 63.5 kg Aleyda Hemmer PA Work Phone: [facility] 08-26-2024 19:22-0400 Diastolic blood pressure 70 mm[Hg] Aleyda Hemmer PA Work Phone: [facility] 08-26-2024 19:22-0400 Heart rate 102 /min Aleyda Hemmer PA Work Phone: [facility] 08-26-2024 19:22-0400 SaO2% (BldA) [Mass fraction] 98 % Aleyda Hemmer PA Work Phone: [facility] 08-26-2024 19:22-0400 Systolic blood pressure 122 mm[Hg] Aleyda Hemmer PA Work Phone: [facility] 08-24-2024 10:30-0400 Body mass index (BMI) [Ratio] 21.96 kg/m2 Jahaira Byers PA Work Phone: [facility] 08-24-2024 10:30-0400 Body weight 62.65 kg Jahaira Byers PA Work Phone: [facility] 08-24-2024 10:30-0400 Diastolic blood pressure 70 mm[Hg] Jahaira GRIGGS Work Phone: [facility] 08-24-2024 10:30-0400 Systolic blood pressure 120 mm[Hg] Jahaira GRIGGS Work Phone: [facility] 08-17-2024 14:43-0400 Body height 168.9 cm Janice Escobar MD Work Phone: [facility] 08-17-2024 14:43-0400 Body mass index (BMI) [Ratio] 21.94 kg/m2 Janice Escobar MD Work Phone: [facility] 08-17-2024 14:43-0400 Body weight 62.6 kg Janice Escobar MD Work Phone: [facility] 08-17-2024 14:43-0400 Diastolic blood pressure 71 mm[Hg] Janice Escobar MD Work Phone: [facility] 08-17-2024 14:43-0400 Heart rate 93 /min Janice Escobar MD Work Phone: [facility] 08-17-2024 14:43-0400 Systolic blood pressure 105 mm[Hg] Janice Escobar MD Work Phone: [facility] 08-10-2024 10:06-0400 Body mass index (BMI) [Ratio] 21.91 kg/m2 Clarke Mayte DO Work Phone: [facility] 08-10-2024 10:06-0400 Body weight 62.51 kg Clarke Mayte DO Work Phone: [facility] 08-10-2024 10:06-0400 Diastolic blood pressure 70 mm[Hg] Clarke Mayte DO Work Phone: [facility] 08-10-2024 10:06-0400 Systolic blood pressure 104 mm[Hg] Clarke Mayte DO Work Phone: [facility] 07-19-2024 12:03-0400 Body height 167.[address] MD Work Phone: [facility] 07-19-2024 12:03-0400 Body mass index (BMI) [Ratio] 21.88 kg/m2 Janice Lane MD Work Phone: [facility] 07-19-2024 12:03-0400 Body temperature 97.59 [degF] Janice Lane MD Work Phone: [facility] 07-19-2024 12:03-0400 Body weight 61.[address] MD Work Phone: [facility] 07-19-2024 12:03-0400 Diastolic blood pressure 67 mm[Hg] Janice Lane MD Work Phone: [facility] 07-19-2024 12:03-0400 Heart rate 86 /min Janice Lane MD Work Phone: [facility] 07-19-2024 12:03-0400 SaO2% (BldA) [Mass fraction] 99 % Janice Lane MD Work Phone: [facility] 07-19-2024 12:03-0400 Systolic blood pressure 107 mm[Hg] Janice Lane MD Work Phone: [facility] 03-04-2024 13:00-0400 Body height 168.[address] MD Work Phone: [facility] 03-04-2024 13:00-0400 Body mass index (BMI) [Ratio] 19.52 kg/m2 Janice Lane MD Work Phone: [facility] 03-04-2024 13:00-0400 Body temperature 98.1 [degF] Janice Lane MD Work Phone: [facility] 03-04-2024 13:00-0400 Body weight 55.[address] MD Work Phone: [facility] 03-04-2024 13:00-0400 Diastolic blood pressure 66 mm[Hg] Janice Lane MD Work Phone: [facility] 03-04-2024 13:00-0400 Heart rate 95 /min Janice Lane MD Work Phone: [facility] 03-04-2024 13:00-0400 SaO2% (BldA) [Mass fraction] 100 % Janice Lane MD Work Phone: [facility] 03-04-2024 13:00-0400 Systolic blood pressure 101 mm[Hg] Janice Lane MD Work Phone: [facility] 12-25-2023 10:54-0500 Body weight 56.8 kg Tor Hernandez APRN.FIREPOT OPERATOR AND TENDER Work Phone: [facility] 12-25-2023 10:54-0500 Diastolic blood pressure 67 mm[Hg] Tor Hernandez STRAP CUTTING MACHINE OPERATOR.FIREPOT OPERATOR AND TENDER Work Phone: [facility] 12-25-2023 10:54-0500 Heart rate 87 /min Tor Hernandez APRN.FIREPOT OPERATOR AND TENDER Work Phone: [facility] 12-25-2023 10:54-0500 Systolic blood pressure 95 mm[Hg] Tor Hernandez APRN.FIREPOT OPERATOR AND TENDER Work Phone: [facility] 12-23-2023 13:34-0500 Body mass index (BMI) [Ratio] 20.13 kg/m2 Marvin Tesmanolo BENZ Work Phone: [facility] 12-23-2023 13:34-0500 Body temperature 98.91 [degF] Marvin Yumimanolo BENZ Work Phone: [facility] 12-23-2023 13:34-0500 Body weight 57.42 kg Marvin Howard DO Work Phone: [facility] 12-23-2023 13:34-0500 Diastolic blood pressure 70 mm[Hg] Marvin Howard DO Work Phone: [facility] 12-23-2023 13:34-0500 Heart rate 88 /min Marvin Howard DO Work Phone: [facility] 12-23-2023 13:34-0500 SaO2% (BldA) [Mass fraction] 99 % Marvin Howard DO Work Phone: [facility] 12-23-2023 13:34-0500 Systolic blood pressure 120 mm[Hg] Marvin Howard DO Work Phone: [facility] 09-25-2023 13:25-0500 Body temperature 98.29 [degF] Chair [place] Work Phone: [facility] 09-25-2023 13:25-0500 Diastolic blood pressure 72 mm[Hg] Chair [place] Work Phone: [facility] 09-25-2023 13:25-0500 Heart rate 69 /min Chair [place] Work Phone: [facility] 09-25-2023 13:25-0500 Respiratory rate 16 /min Chair [place] Work Phone: [facility] 09-25-2023 13:25-0500 SaO2% (BldA) [Mass fraction] 99 % Chair [place] Work Phone: [facility] 09-25-2023 13:25-0500 Systolic blood pressure 102 mm[Hg] Chair Kylah Work Phone: [facility] 07-23-2023 10:36-0400 Body weight 56.7 kg Tor Hernandez APRN.FIREPOT OPERATOR AND TENDER Work Phone: [facility] 07-23-2023 10:36-0400 Diastolic blood pressure 62 mm[Hg] Tor Hernandez APRN.FIREPOT OPERATOR AND TENDER Work Phone: [facility] 07-23-2023 10:36-0400 Heart rate 69 /min Tor Hernandez APRN.FIREPOT OPERATOR AND TENDER Work Phone: [facility] 07-23-2023 10:36-0400 Systolic blood pressure 94 mm[Hg] Tor Hernandez APRNAkashFIREPOT OPERATOR AND TENDER Work Phone: [facility] 02-12-2023 11:27-0400 Body height 167.[address] MD Work Phone: [facility] 02-12-2023 11:27-0400 Body weight 55.[address] MD Work Phone: [facility] 02-12-2023 11:27-0400 Diastolic blood pressure 67 mm[Hg] Janice Lane MD Work Phone: [facility] 02-12-2023 11:27-0400 Heart rate 60 /min Janice Lane MD Work Phone: [facility] 02-12-2023 11:27-0400 SaO2% (BldA) [Mass fraction] 98 % Janice Lane MD Work Phone: [facility] 02-12-2023 11:27-0400 Systolic blood pressure 107 mm[Hg] Janice Lane MD Work Phone: [facility] 01-17-2023 10:49-0500 Body weight 56.52 kg Nesha Santana MD Work Phone: [facility] 01-17-2023 10:49-0500 Diastolic blood pressure 73 mm[Hg] Nesha Santana MD Work Phone: [facility] 01-17-2023 10:49-0500 Heart rate 113 /min Nesha Santana MD Work Phone: [facility] 01-17-2023 10:49-0500 Systolic blood pressure 111 mm[Hg] Nesha Santana MD Work Phone: [facility] 10-28-2022 00:35-0500 Body temperature 100.1 [degF] MD Janice Lane Work Phone: [facility] 10-28-2022 00:35-0500 Diastolic blood pressure 73 mm[Hg] MD Janice Lane Work Phone: [facility] 10-28-2022 00:35-0500 Heart rate 100 /min MD Janice Lane Work Phone: [facility] 10-28-2022 00:35-0500 SaO2% (BldA) [Mass fraction] 98 % MD Janice Lane Work Phone: [facility] 10-28-2022 00:35-0500 Systolic blood pressure 112 mm[Hg] MD Janice Lane Work Phone: [facility] 10-27-2022 23:30-0500 Respiratory rate 16 /min MD Janice Lane Work Phone: [facility] 10-27-2022 21:08-0500 Body height 167.[address] Work Phone: [facility] 10-27-2022 21:08-0500 Body weight 62.[address] Work Phone: [facility] 09-27-2022 13:45-0500 Body temperature 98.8 [degF] Chair [place] Work Phone: [facility] 09-27-2022 13:45-0500 Diastolic blood pressure 65 mm[Hg] Chair Kylah Work Phone: [facility] 09-27-2022 13:45-0500 Heart rate 101 /min Chair Kylah Work Phone: [facility] 09-27-2022 13:45-0500 Respiratory rate 16 /min Chair [place] Work Phone: [facility] 09-27-2022 13:45-0500 SaO2% (BldA) [Mass fraction] 99 % Chair Kylah Work Phone: [facility] 09-27-2022 13:45-0500 Systolic blood pressure 101 mm[Hg] Chair Kylah Work Phone: [facility] 08-08-2022 07:54-0400 Body weight 61.42 kg Nesha Santana MD Work Phone: [facility] 08-08-2022 07:54-0400 Diastolic blood pressure 65 mm[Hg] Nesha Santana MD Work Phone: [facility] 08-08-2022 07:54-0400 Heart rate 82 /min Nesha Santana MD Work Phone: [facility] 08-08-2022 07:54-0400 Systolic blood pressure 106 mm[Hg] Nesha Santana MD Work Phone: [facility] 05-30-2022 14:00-0400 Diastolic blood pressure 55 mm[Hg] Deuce Rileya OTR/L Work Phone: [facility] 05-30-2022 14:00-0400 Systolic blood pressure 96 mm[Hg] Deuce Rileya OTR/L Work Phone: [facility] 04-25-2022 09:09-0400 Body height 168.9 cm Marshall Hanley MD, PhD Work Phone: [facility] 04-25-2022 09:09-0400 Body weight 62.6 kg Marshall Hanley MD, PhD Work Phone: [facility] 04-25-2022 09:09-0400 Diastolic blood pressure 62 mm[Hg] Marshall Hanley MD, PhD Work Phone: [facility] 04-25-2022 09:09-0400 Heart rate 106 /min Marshall Hanley MD, PhD Work Phone: [facility] 04-25-2022 09:09-0400 Systolic blood pressure 109 mm[Hg] Marshall Hanley MD, PhD Work Phone: [facility] 04-02-2022 17:47-0400 Diastolic blood pressure 75 mm[Hg] DO Vishal Tupa Work Phone: [facility] 04-02-2022 17:47-0400 Heart rate 90 /min DO Vishal Tupa Work Phone: [facility] 04-02-2022 17:47-0400 Respiratory rate 18 /min DO Vishal Tupa Work Phone: [facility] 04-02-2022 17:47-0400 SaO2% (BldA) [Mass fraction] 99 % DO Vishal Agarwal Work Phone: [facility] 04-02-2022 17:47-0400 Systolic blood pressure 113 mm[Hg] DO Vishal Amezcuapa Work Phone: [facility] 04-02-2022 15:46-0400 Body height 168.91 cm DO Vishal Agarwal Work Phone: [facility] 04-02-2022 15:46-0400 Body mass index (BMI) [Ratio] 21.7 kg/m2 DO Vishal Agarwal Work Phone: [facility] 04-02-2022 15:46-0400 Body temperature 98.5 [degF] DO Vishal Amezcuapa Work Phone: [facility] 04-02-2022 15:46-0400 Body weight 62.14 kg DO Vishal Agarwal Work Phone: [facility] 03-26-2022 12:45-0400 Body temperature 98.8 [degF] Neur Infusion Work Phone: [facility] 03-26-2022 12:45-0400 Diastolic blood pressure 67 mm[Hg] Neur Infusion Work Phone: [facility] 03-26-2022 12:45-0400 Heart rate 95 /min Neur Infusion Work Phone: [facility] 03-26-2022 12:45-0400 Systolic blood pressure 100 mm[Hg] Neur Infusion Work Phone: [facility] 01-05-2020 11:52-0500 BMI (Body Mass Index) 20.71 kg/m2 Karri Jones XI-Qkyzhgrpdd-[place] [address] Work Phone: 01-05-2020 11:52-0500 Body weight 59.08 kg Karri Jones GZ-Zyjxvrhxzh-[place] [address] [place] [address] Work Phone: 01-05-2020 11:52-0500 BP Diastolic 74 mm[Hg] Karri Jones AP-Oinfeuytvx-Og [facility] 2300 Work Phone: Comment on above: Location: RUE; Position: Sitting 01-05-2020 11:52-0500 BP Systolic 108 mm[Hg] Karri Jones PL-Xviojndgzb-Vu [facility] 2300 Work Phone: Comment on above: Location: RUE; Position: Sitting 01-05-2020 11:52-0500 BSA (Body Surface Area) 1.68 m2 Karri Jones CH-Mtcxttofra-[place] [address] Work Phone: 01-05-2020 11:52-0500 Height 168.91 cm Karri Jones PY-Yntdgchulc-Lv [facility] 2300 Work Phone: 01-05-2020 11:52-0500 Pulse (Heart Rate) 89 /min Karri Jones MG-Cardiology -[facility] 2300 Work Phone: 01-05-2020 11:52-0500 Pulse Oximetry 99 % Karri Jones BR-Ouopzndlfe-Bc [facility] 2300 Work Phone: 01-05-2020 11:52-0500 Respiratory Rate 16 /min Karri Jones DB-Xyishsmwhw-U [facility] 0 Work Phone: 05-05-2019 08:59-0400 BP Diastolic 73 mm[Hg] STAFF NON [facility] 05-05-2019 08:59-0400 BP Systolic 103 mm[Hg] STAFF NON [facility] 05-05-2019 08:59-0400 Pulse (Heart Rate) 92 /min [facility] 04-09-2019 12:20-0400 Body weight 71.7 kg STAFF NON [facility] 04-09-2019 12:20-0400 Height 170.21 cm STAFF NON [facility] 04-09-2019 11:00-0400 Pulse Oximetry 98 % STAFF NON [facility] 04-09-2019 11:00-0400 Respiratory Rate 20 /min [facility] Encounters Encounter Date Encounter Type Care Provider Facility Start: 10-13-2024 End: 10-13-2024 [address]phone [address]ella Dutton RD [facility] Comment on above: Patient Update Start: 10-12-2024 End: 10-12-2024 Bamboo flowsheet Clarke Hu DO Work Phone: [facility] Start: 10-12-2024 End: 10-12-2024 Bamboo flowsheet Clarke Hu DO Work Phone: [facility] Start: 10-12-2024 End: 10-12-2024 Subsequent hospital visit by physician Zana Davis Ob[facility]yn[facility] Ultrasound [facility] Comment on above: Encounter for superv ision of normal , unspecified, unspecified trimester; Maternal care for other known or suspected poor growth, third trimester, not applicable or unspecified Start: 10-12-2024 End: 10-12-2024 Office outpatient visit 25 minutes Janice Escobar MD Work Phone: [facility] Comment on above: Multiple sclerosis a ffecting in second trimester (Multi) (Primary Dx); Poor growth affecting management of mother in third trimester, single or unspecified fetus ([facility]-HCC) Start: 10-11-2024 End: 10-11-2024 ambulatory Estrella Sorto PT, DPT Work Phone: [facility] Comment on above: Right hip pain (Prim viji Dx) Start: 10-05-2024 End: 10-05-[address] [facility] Start: 10-05-2024 End: 10-05-2024 Subsequent hospital visit by physician Zana Hawk Obgynimg Ultrasound 3 [facility] [place] Comment on above: Encounter for superv ision of normal , unspecified, unspecified trimester; Multiple sclerosis 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 trimester (Multi) Start: 10-05-2024 End: 10-05-2024 ambulatory CLARKE CHEN [facility] Start: 10-04-2024 End: 10-04-2024 Bamboo flowsheet Jahaira GRIGGS Work Phone: [facility] Start: 10-04-2024 End: 10-04-2024 Bamboo flowsheet Jahaira GRIGGS Work Phone: [facility] Start: 10-04-2024 End: 10-04-2024 ambulatory JAHAIRA BYERS Not Available Start: 10-04-2024 End: 10-04-2024 Office outpatient visit 15 minutes Jahaira GRIGGS Work Phone: [facility] Comment on above: 36 weeks gestation o f ; Third trimester Start: 09-27-2024 End: 09-27-2024 Office outpatient visit 15 minutes Clarke Mayte DO Work Phone: [facility] Comment on above: with maria l glucose tolerance test (GTT); Third trimester ; 35 weeks gestation of Start: 09-27-2024 End: 09-27-2024 ambulatory CLARKE MAYTE Not Available Start: 09-27-2024 End: 09-27-2024 Bamboo flowsheet Clarke Mayte DO Work Phone: [facility] Start: 09-27-2024 End: 09-27-2024 Bamboo flowsheet Clarke Mayte DO Work Phone: [facility] Start: 09-22-2024 End: 09-22-[address] D[address] [facility] Comment on above: Multiple sclerosis ( HCC) (Primary Dx); Dietary counseling and surveillance Start: 09-22-2024 End: 09-22-2024 Telemedicine consultation with patient Estella Dutton RD [facility] Start: 09-22-2024 End: 09-22-2024 ambulatory ESTELLA DUTTON Facility:[facility] Start: 09-21-2024 End: 09-21-2024 Office outpatient visit 15 minutes Clarke Mayte DO Work Phone: [facility] Comment on above: 34 weeks gestation o f ; Third trimester ; MS (multiple sclerosis) (CMS/HCC); Short cervix affecting ; HSV (herpes simplex virus) infection Start: 09-21-2024 End: 09-21-2024 ambulatory CLARKE HU Not Available Start: 09-21-2024 End: 09-21-2024 Bamboo flowsheet Clarke Mayte DO Work Phone: [facility] Start: 09-21-2024 End: 09-21-2024 Bamboo flowsheet Clarke Mayte DO Work Phone: [facility] Start: 09-21-2024 End: 09-21-2024 ambulatory Estrella Sorto PT, DPT Work Phone: [facility] Comment on above: Right hip pain (Prim viji Dx) Start: 09-20-2024 End: 09-20-2024 Specialty Pharmacy Kenzie Mccall [facility] Comment on above: SPP Neurology - Medi cation Refill (Glatiramer) Start: 09-17-2024 End: 09-17-2024 ambulatory CLARKE [facility] Start: 09-17-2024 End: 09-17-2024 Subsequent hospital visit by physician [id number] Obgynimg Ultrasound 3 [facility] Comment on above: Arrived Start: 09-14-2024 End: 09-14-2024 ambulatory [facility] Start: 09-07-2024 End: 09-07-2024 Office [...] ambulatory Estrella Sorto PT, DPT Work Phone: [facility] Comment on above: Right hip pain Start: 09-02-2024 End: 09-06-2024 ambulatory Tor Hernandez APRN.FIREPOT OPERATOR AND TENDER Work Phone: [facility] Comment on above: Need 2 ltr from Start: 09-02-2024 End: 09-06-2024 Letter encounter Tor Hernandez APRN.FIREPOT OPERATOR AND TENDER Work Phone: [facility] Comment on above: Need 2 letters Start: 08-30-2024 End: 08-30-2024 ambulatory ART MORTENSENRYAN Facility:[facility] Start: 08-30-2024 End: 08-30-2024 Patient encounter procedure Art Calderon Leela OD Work Phone: Ophthalmology Comment on above: [...] [facility] Start: 08-24-2024 End: 08-24-2024 ambulatory JHAAIRA BYERS Not Available Start: 08-24-2024 End: 08-24-2024 Office outpatient visit 15 minutes Jahaira GRIGGS Work Phone: [facility] Comment on above: 30 weeks gestation o f ; Third trimester ; MS (multiple sclerosis) ([facility]/HCC) Start: 08-18-2024 End: 08-18-2024 Chart abstracting Tor Hernandez APRN.FIREPOT OPERATOR AND TENDER Work Phone: [facility] Comment on above: Orders (OTC-Nutritio nal Suppl) Start: 08-17-2024 End: 08-17-2024 Office outpatient visit 25 minutes Janice Escobar MD Work Phone: [facility] Comment on above: Multiple sclerosis a ffecting in second trimester (Multi) Start: 08-17-2024 End: 08-17-2024 Subsequent hospital visit by physician Zana Oliverosb Obgynimg Ultrasound 3 [facility] Comment on above: Encounter for superv ision of normal , unspecified, unspecified trimester; AMA (advanced maternal age) primigravida 35+, third trimester ([facility]-H[facility]); Maternal care for other known or suspected poor growth, third trimester, not applicable or unspecified; Multiple sclerosis affecting in third trimester (Multi); History of LEEP (loop electrosurgical excision procedure) of cervix 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 trimester ([facility]); Cervical shortening affecting in third trimester Start: 08-17-2024 End: 08-17-2024 ambulatory CLARKE HU [facility] Start: 08-16-2024 End: 08-16-2024 Specialty Pharmacy Kenzie Mccall [facility] Comment on above: SPP Neurology - Medi cation Refill (Glatiramer) Start: 08-10-2024 End: 08-10-2024 flow sheet Clarke Hu DO Work Phone: [facility] Comment on above: Third trimester preg alee; 28 weeks gestation of Start: 08-10-2024 End: 08-17-2024 ambulatory Tor Hernandez STRAP CUTTING MACHINE OPERATOR.FIREPOT OPERATOR AND TENDER Work Phone: [facility] Comment on above: Need different presc ription & note made out Start: 07-30-2024 End: 07-30-[address] Facility:[facility] Start: 07-27-2024 End: 07-27-2024 ambulatory CLARKE HU Not Available Start: 07-20-2024 End: 07-20-2024 ambulatory Germania Wilkinson MD Work Phone: Neurology Comment on above: RLS (restless legs s yndrome) (Primary Dx); Primary insomnia Start: 07-20-2024 End: 07-20-2024 Telemedicine consultation with patient Germania Wilkinson MD Work Phone: Neurology Start: 07-19-2024 End: 07-19-2024 Patient encounter status Janice Lane MD Work Phone: [facility] Work Phone: Start: 07-19-2024 End: 07-19-2024 Specialty Pharmacy Kenzie Mccall [facility] Comment on above: SPP Neurology - Medi cation Refill (Glatiramer) Wellness examination (Primary Dx); Screening for depression; Encounter for screening examination for other mental health and behavioral disorders; Vasovagal syncope; Right hip pain; Multiple sclerosis (HCC); Dry skin; URI, acute Start: 07-13-2024 End: 07-13-2024 ambulatory CLARKE HU Not Available Start: 07-08-2024 End: 07-08-[address] Facility:[facility] Start: 07-02-2024 End: 07-02-2024 ambulatory CLARKE [facility] Start: 07-01-2024 End: 07-01-2024 ambulatory GERMANIA WILKINSON Facility:[facility] Start: 06-22-2024 Specialty Pharmacy Kenzie Mccall [facility] Comment on above: SPP Neurology - Medi cation Refill (Glatiramer) Start: 06-21-2024 Refill Tor Hernandez APRN.CNP Work Phone: [facility] Comment on above: Refill Request Start: 06-15-2024 End: 06-15-2024 ambulatory JAHAIRA BYERS Not Available Start: 06-14-2024 End: 06-14-2024 ambulatory JANICE Staley [facility] Start: 06-14-2024 End: 06-14-2024 ambulatory CLARKE [facility] Start: 06-11-2024 Telephone encounter [facility] Comment on above: Senior Solutions Architect - O ther Start: 06-10-2024 Chart abstracting Clarice Zepeda [facility] Comment on above: Orders (Mailed-nutri tional supplement OTC ) Start: 06-09-2024 End: 06-09-2024 ambulatory Tor Hernandez APRN.CNP Work Phone: [facility] Comment on above: Multiple sclerosis ( HCC) (Primary Dx); 19 weeks gestation of Start: 06-09-2024 End: 06-09-2024 Telemedicine consultation with patient Tor Hernandez APRN.FIREPOT OPERATOR AND TENDER Work Phone: [facility] Start: 06-08-2024 End: 06-08-2024 Telemedicine consultation with patient Germania Wilkinson MD Work Phone: Neurology Start: 06-08-2024 End: 06-08-2024 ambulatory Germania Wilkinson MD Work Phone: Neurology Comment on above: Snoring (Primary Dx) ; Multiple sclerosis (HCC); Chronic insomnia; Restless leg syndrome; Malaise and fatigue; At risk for obstructive sleep apnea Start: 05-27-2024 End: 05-27-[address] Facility:[facility] Start: 05-25-2024 Chart abstracting Actigraphy N eur (Hist) Neurology Start: 05-25-2024 End: 05-25-2024 ambulatory GERMANIA WILKINSON Facility:[facility] Start: 05-24-2024 Specialty Pharmacy Kenzie Mccall [facility] Comment on above: SPP Neurology - Medi cation Refill (Glatiramer) Start: 05-18-2024 End: 05-18-2024 ambulatory CLARKE HU Not Available Start: 05-10-2024 End: 05-10-2024 [facility] Start: 04-26-2024 Specialty Pharmacy Kenzie Mccall [facility] Comment on above: SPP Neurology - Medi cation Refill (Glatiramer) Start: 04-20-2024 End: 04-20-2024 ambulatory IBANDEVON LAZO Facility:[facility] Start: 04-08-2024 ambulatory Natalie rasmussen [facility] Comment on above: Glatiramer Injection video Start: 04-08-2024 E-mail encounter kareen pérez caregiver Natalie Nweberry [facility] Start: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 improvements in her strength at this time. Encouraged consistent HEP as tolerated within the next week and then return to HEP pending physician clearance . Pt to be induced through labor next week, so discharge to indepedent HEP as tolerated. Goals for Episode of Care: established 09/03/24 [place] in home exercise program. Met Patient will [...] 30% improvement since IE. She sees chiropractor dulce and notes that has been helpful as [...] Sorto PT, DPT documented in this encounter [facility] 10-11-2024 Note HNO ID: [id number] Author: ESTRELLA SORTO PT, DPT Service: ? Author Type: Physical Therapist Type: Progress Notes Filed: 10/11/2024 13:34 Note Text: Episode Visit Count: 3 Therapist That Will [...] 10/11/2024 and treatment included: Therapeutic exercise and Self-senior care management. Exhibits minor improvements in her strength at this time. Encouraged consistent HEP as tolerated within the next week and then return to HEP pending physician clearance . Pt to be induced through labor next week, so discharge to indepedent HEP as tolerated. Goals for Episode of Care: established 09/03/24 [place] in home exercise program. Met Patient will [...] 30% improvement since IE. She sees chiropractor dulce and notes that has been helpful as [...] 1253 Session Stop Time : 1333 Estrella Sorto, PT, DPT [facility] 10-04-2024 History of Present illness Narrative Reason [...] mometasone (Elocon) 0.1 % cream Daily RT Ysnlmhsn-Uml-Kf-FA (Jenliva /) 1 MG capsule Take by [...] Hypocalcemia Hypoglycemia Low iron MS (multiple sclerosis) ([facility]) Urinary incontinence 2009 HISTORY PAST MEDICAL HISTORY SOCIAL HISTORY Past Medical History: Diagnosis Date Abnormal Pap smear of cervix 2007 Bacterial vaginosis 2019 Hypocalcemia Hypoglycemia Low iron MS (multiple sclerosis) ([facility]) Urinary incontinence 2009 Social History Tobacco [...] of: ANSON Mon documented in this encounter [facility] 09-27-2024 History of Present illness Narrative Reason [...] mometasone (Elocon) 0.1 % cream Daily RT Mcqriuld-Mce-Gg-FA (Jenliva /) 1 MG capsule Take by [...] Hypocalcemia Hypoglycemia Low iron MS (multiple sclerosis) ([facility]) Urinary incontinence 2009 HISTORY PAST MEDICAL HISTORY SOCIAL HISTORY Past Medical History: Diagnosis Date Abnormal Pap smear of cervix 2008 Bacterial vaginosis 2019 Hypocalcemia Hypoglycemia Low iron MS (multiple sclerosis) ([facility]) Urinary incontinence 2009 Social History Tobacco [...] nursing note reviewed. Exam conducted with a marketing communications assistant present. Vitals: Estimated body mass index is [...] Clarke Hu DO documented in this encounter [facility] 09-22-2024 Note HNO ID: [id number] Author: ESTELLA DUTTON RD Service: ? Author Type: Registered Dietitian Type: Progress Notes Filed: 10/01/2024 16:42 Note Text: The [facility] Nutrition Therapy: Virtual Consult - Initial Assessment I have communicated my name and active licensure. The patient?s identity and physical location were verified at the time of this visit. Either the patient or their legal equal opportunity representative has been informed of the risks [...] Ann Martinez DATE: 09/22/2024 TIME: 8:41 AM [facility] 09-22-2024 History of Present illness Narrative The [facility] Nutrition Therapy: Virtual Consult - Initial Assessment I have communicated my name and active licensure. The patient s identity and physical location were verified at the time of this visit. Either the patient or their legal equal opportunity representative has been informed of the risks [...] TIME: 8:41 AM documented in this encounter [facility] 09-21-2024 History of Present illness Narrative Reason [...] mometasone (Elocon) 0.1 % cream Daily RT Ntrfxysx-Tfs-Zm-FA (Jenliva /) 1 MG capsule Take by [...] Hypocalcemia Hypoglycemia Low iron MS (multiple sclerosis) ([facility]) Urinary incontinence 2009 HISTORY PAST MEDICAL HISTORY SOCIAL HISTORY Past Medical History: Diagnosis Date Abnormal Pap smear of cervix 2007 Bacterial vaginosis 2019 Hypocalcemia Hypoglycemia Low iron MS (multiple sclerosis) ([facility]) Urinary incontinence 2009 Social History Tobacco [...] nursing note reviewed. Exam conducted with a marketing communications assistant present. Vitals: Estimated body mass index is [...] Clarke Hu DO documented in this encounter [facility] 09-21-2024 History of Present illness Narrative Program_ID:[id number] Access Code: [email or web address] URL: [email or web address] Date: 09-21-2024 Prepared By: Estrella Sorto [...] therapeutic exercises was facilitated with verbal cuing. Self-Fdc Management: 1: discussed importance of focus through [...] Time (minutes): 40 Session Start Time : 939 Session Stop Time : 1020 AUREA Masterson Supervising therapist was present and guided the care of the patient for the entire session on this date. All documentation was reviewed and agreed upon. Estrella Sorto PT, DPT documented in this encounter [facility] 09-21-2024 Note HNO ID: [id number] Author: ESTRELLA SORTO PT, DPT Service: ? [...] therapeutic exercises was facilitated with verbal cuing. Self-Fdc Management: 1: discussed importance of focus through [...] and agreed upon. Estrella Sorto, PT, DPT [facility] 09-20-2024 Note HNO ID: [id number] Author: IBAN LAZO, PhD Service: ? Author Type: Psychologist Type: Progress Notes Filed: 09/20/2024 14:26 Note Text: Behavioral Sleep Medicine Follow up Iban Lazo, PhD I have communicated my name and active licensure. The patient's identity and physical location were verified at the time of this visit. Either the patient or their legal equal opportunity representative has been informed of the risks and benefits of -- and alternatives to -- treatment through a remote evaluation and consents to proceed with the evaluation remotely. Contact Method: Zoom Patient Confirmed [address]: [address] [place] [address] Patient Confirmed Telephone #: [phone] Time: 40 minutes Individual Psychotherapy Session # [...] [facility] 3[facility]6 [facility] 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 Iban Lazo, PhD, Psychologist ([place] license [id number]) [facility] 09-20-2024 History of Present illness Narrative [...] been reviewed prior to dispensing the medication. Contract Technical Writer Assessment Patient confirmed: Yes Med/dose confirmed: Yes Supplies needed: No supplies needed Missed doses: No Estimated days supply on hand: 1 Delivery method: FedEx Signature required: No Delivery address: [address] [place] [address] [address] Delivery date: 09/22/24 Questions or [...] (FLONASE) 50 mcg/actuation nasal spray Use 1 [place] in each nostril once daily. No current facility-administered medications on file prior to visit. [facility] RX SPECIALTY CLINICAL ASSESSMENT - [...] without relapses Previous disease therapies: - Betaseron 6343-1679 - Copaxone 1653-8299 - Tysabri 2009-Summer 2019 (stopped due to [...] Kenzie Mccall RPh documented in this encounter [facility] 09-20-2024 Note HNO ID: [id number] Author: KENZIE MCCALL [facility] Service: ? Author Type: Pharmacist Type: [...] been reviewed prior to dispensing the medication. Contract Technical Writer Assessment Patient confirmed: Yes Med/dose confirmed: Yes Supplies needed: No supplies needed Missed doses: No Estimated days supply on hand: 1 Delivery method: FedEx Signature required: No Delivery address: [address] [place] [address] Delivery date: 09/22/24 Questions or concerns for [...] (FLONASE) 50 mcg/actuation nasal spray Use 1 [place] in each nostril once daily. No current facility-administered medications on file prior to visit. [facility] RX SPECIALTY CLINICAL ASSESSMENT - [...] without relapses Previous disease therapies: - Betaseron 4526-6214 - Copaxone 0662-4808 - Tysabri 2009-Summer 2019 (stopped due to planned ) - Copaxone 2379-8037 (during ) - Ocrevus (02/28/21 through 09/25/23, [...] Treatment Duration: No information available Kenzie Mccall dayana [facility] 09-03-2024 History of Present illness Narrative Program_ID:[id number] Access Code: [email or web address] URL: [email or web address] Date: 09-03-2024 Prepared By: Estrella Sorto Program [...] Goals for Episode of Care: established 09/03/24 [place] in home exercise program. Patient will decrease [...] Planned: 4 Planned Treatment Interventions: Therapeutic exercise (35585), Neuromuscular re-education (48439), Manual therapy (00707), Therapeutic activities (32035), Self-senior care management (35213), Gait Training (05199), Patient/Family/Caregiver Education PLAN FOR NEXT VISIT: Continue [...] Demonstration TREATMENT: PT Treatment Interventions: Therapeutic Exercise, Self-Fdc Management Evaluation Evaluation Therapeutic Exercise: 1: *seated [...] use of heat and parameters for each. Self-Fdc Management: 1: educated through diagnosis, prognosis, plan [...] Sorto PT, DPT documented in this encounter [facility] 09-03-2024 Note HNO ID: [id number] Author: ESTRELLA SORTO PT DPLibby Service: ? Author Type: Physical Therapist Type: [...] Goals for Episode of Care: established 09/03/24 [place] in home exercise program. Patient will decrease [...] Planned: 4 Planned Treatment Interventions: Therapeutic exercise (33251), Neuromuscular re-education (46091), Manual therapy (26707), Therapeutic activities (55198), Self-senior care management (58092), Gait Training (39072), Patient/Family/Caregiver Education PLAN FOR NEXT VISIT: Continue [...] R Hip Pa (more content not included)... [facility] 09-02-2024 Telephone encounter Note Duplicate message Closing this encounter [facility] 09-02-2024 Miscellaneous Notes Duplicate message Closing this encounter documented in this encounter [facility] 08-30-2024 Note HNO ID: [id number] Author: ART SWENSON OD Service: ? Author Type: CORNER BLOCK CUTTER Type: Progress Notes Filed: 08/30/2024 16:40 Note [...] her +++ August 30, 2024 4:35 PM [facility] 08-30-2024 History of Present illness Narrative [...] 2024 4:35 PM documented in this encounter [facility] 08-26-2024 History of Present illness Narrative Images [...] the morning. cholecalciferol (Vitamin D3) 1.25 MG (72039 UT) tablet Take 1.25 mg by mouth once a week clotrimazole-betamethasone (Lotrisone) cream Apply 1 application topically Daily Apply to affected area daily for 7 days 45 g 0 ergocalciferol (Vitamin D-2) 1.25 MG (23885 UT) capsule Take 50,000 Units by mouth [...] (Elocon) 0.1 % cream Apply topically Daily Jxdwjbqn-Hje-Lh-FA (Jenliva /) 1 MG capsule Take by [...] Aleyda WEINSTEIN PA-C documented in this encounter [facility] 08-24-2024 History of Present illness Narrative [...] mometasone (Elocon) 0.1 % cream Daily RT Pacbjkfz-Ubj-Nx-FA (Jenliva /) 1 MG capsule Take by [...] Hypocalcemia Hypoglycemia Low iron MS (multiple sclerosis) ([facility]) Urinary incontinence 2009 HISTORY PAST MEDICAL HISTORY SOCIAL HISTORY Past Medical History: Diagnosis Date Abnormal Pap smear of cervix 2007 Bacterial vaginosis 2019 Hypocalcemia Hypoglycemia Low iron MS (multiple sclerosis) ([facility]) Urinary incontinence 2009 Social History Tobacco [...] nursing note reviewed. Exam conducted with a marketing communications assistant present. Vitals: Estimated body mass index is [...] dipstick manually resulted 3. MS (multiple sclerosis) ([facility]) G35 methylPREDNISolone (Medrol Dospak) 4 MG [...] of: ANSON Mon documented in this encounter [facility] 08-18-2024 Note HNO ID: [id number] Author: CLARICE ZEPEDA HUC Service: ? Author Type: Health Hooker Laster Type: Progress Notes Filed: 08/18/2024 09:03 Note Text: Mialed OTC-Nutritional Suppl order to pt CAROL ANN MARTINEZ [address] [place] [address] [facility] 08-18-2024 History of Present illness Narrative Mialed OTC-Nutritional Suppl order to pt CAROL ANN MARTINEZ [address] [place] [address] documented in this encounter [facility] 08-17-2024 History of Present illness Narrative Subjective [...] this encounter [facility] Work Phone: 08-17-2024 Telephone encounter Note Prescription signed and had to be printed, will send out Letter written and placed in chart Tor Hernandez APRN.TREE August 17, 2024 10:26 AM [facility] 08-17-2024 Miscellaneous Notes Prescription signed and had to be printed, will send out Letter written and placed in chart Tor Hernandez APRN.TREE August 17, 2024 10:26 AM documented in this encounter [facility] 08-16-2024 History of Present illness Narrative [facility] [...] been reviewed prior to dispensing the medication. Contract Technical Writer Assessment Patient confirmed: Yes Med/dose confirmed: Yes Supplies needed: No supplies needed Missed doses: No Estimated days supply on hand: (maybe 2 weeks, not sure) Next cycle/dose due: 08/16/24 Copay amount: 0 Payment confirmed: Yes Delivery method: FedEx Signature required: Waived on patient request Delivery address: [address] [facility] [address] Delivery date: 08/31/24 Questions or concerns for [...] (FLONASE) 50 mcg/actuation nasal spray Use 1 Panhandle in each nostril once daily. No current facility-administered medications on file prior to visit. [facility] RX SPECIALTY CLINICAL ASSESSMENT - [...] inject where skin looks healthy. Training video ([employer] no longer supplies nurses for training, or injection devices) PFS supplied and training video https://www.[employer]/injectio n-assistance/odk-gk-ecxdsq DDI none pertinent Vaccines reviewed Est. Tx Plan Start Date: No information available Estimated Start Date Info: No information available Est. Estimated Treatment Duration: No information available Madison Puente (AMENDIA) documented in this encounter [facility] 08-16-2024 Note HNO ID: [id number] Author: KENZIE MCCALL RPh Service: ? Author [...] been reviewed prior to dispensing the medication. Contract Technical Writer Assessment Patient confirmed: Yes Med/dose confirmed: Yes Supplies needed: No supplies needed Missed doses: No Estimated days supply on hand: (maybe 2 weeks, not sure) Next cycle/dose due: 08/16/24 Copay amount: 0 Payment confirmed: Yes Delivery method: FedEx Signature required: Waived on patient request Delivery address: [address] [place] [id number] Delivery date: 08/31/24 Questions or concerns for [...] (FLONASE) 50 mcg/actuation nasal spray Use 1 Panhandle in each nostril once daily. No current facility-administered medications on file prior to visit. [facility] RX SPECIALTY CLINICAL ASSESSMENT - [...] inject where skin looks healthy. Training video ([employer] no longer supplies nurses for training, or injection devices) PFS supplied and training video https://www.[employer]/injectio n-assistance/vqm-em-vksucq DDI none pertinent Vaccines reviewed Est. Tx Plan Start Date: No information available Estimated Start Date Info: No information available Est. Estimated Treatment Duration: No information available Madison Puente (Displayer) [facility] 08-10-2024 History of Present illness Narrative [...] Vitamin (multivitamin) tablet 1 tablet, Oral, Daily Bpjacqhn-Ixp-Sd-FA (Jenliva /) 1 MG capsule Oral Vit-Fe [...] Hypocalcemia Hypoglycemia Low iron MS (multiple sclerosis) ([facility]) Urinary incontinence 2009 HISTORY PAST MEDICAL HISTORY SOCIAL HISTORY Past Medical History: Diagnosis Date Abnormal Pap smear of cervix 2008 Bacterial vaginosis 2019 Hypocalcemia Hypoglycemia Low iron MS (multiple sclerosis) ([facility]) Urinary incontinence 2009 Social History Tobacco Use [...] nursing note reviewed. Exam conducted with a marketing communications assistant present. Vitals: Estimated body mass index is [...] Clarke Hu DO documented in this encounter [facility] 07-30-2024 Note HNO ID: [id number] Author: IBAN LAZO, PhD Service: ? Author Type: Psychologist Type: Progress Notes Filed: 07/30/2024 16:31 Note Text: Behavioral Sleep Medicine Follow up Iban Lazo, PhD I have communicated my name and active licensure. The patient's identity and physical location were verified at the time of this visit. Either the patient or their legal equal opportunity representative has been informed of the risks and benefits of -- and alternatives to -- treatment through a remote evaluation and consents to proceed with the evaluation remotely. 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 [facility] 07-20-2024 Instructions Germania Wilkinson MD - [...] hours of bedtime. documented in this encounter [facility] 07-20-2024 Note HNO ID: [id number] Author: GERMANIA WILKINSON MD Service: ? Author Type: Physician Type: Progress Notes Filed: 07/21/2024 15:38 Note Text: [facility] Follow up/ Established patient visit Date of last visit : 08/19/2023 I have communicated my name and active licensure. The patient's identity and physical location were verified at the time of this visit. Either the patient or their legal equal opportunity representative has been informed of the risks [...] sorted in reverse-chronological order 04/13/2024 05/23/2024 07/08/2024 [place] Sleepiness Scale Score 0 (No clinically significant [...] mg by mo (more content not included)... [facility] 07-20-2024 History of Present illness Narrative Images from the original note were not included. [facility] Follow up/ Established patient visit Date of last visit : 08/19/2023 I have communicated my name and active licensure. The patient's identity and physical location were verified at the time of this visit. Either the patient or their legal equal opportunity representative has been informed of the risks [...] sorted in reverse-chronological order 04/13/2024 05/23/2024 07/08/2024 [place] Sleepiness Scale Score 0 (No clinically significant [...] (FLONASE) 50 mcg/actuation nasal spray Use 1 Panhandle in each nostril once daily. PHYSICAL EXAMINATION: NEUROLOGICAL EXAM: General: Awake, alert, speech fluent, comprehension, naming, repetition intact. Short and sales record clerk memory intact. IMPRESSION: Primary insomnia (primary encounter diagnosis) Rls (restless legs syndrome) Carol Ann Martinez is a 38 year old female with hx of MS and WINIFRED here for evaluation of insomnia, RLS. She is currently and has come off of trazodone for her insomnia. She is currently taking gkrd-nuq-jhhqvco Unisom without much benefit. Her sleep is [...] BSM for CBTi Germania Wilkinson MD Clinical Risk Compliance Managerclamshell operator [facility] documented in this encounter [facility] 07-19-2024 Note HNO ID: [id number] Author: JANICE LANE MD Service: ? Author [...] the hip. She is not taken anything bftf-kwe-aumzmnk for it. Patient has multiple sclerosis. Her [...] few seconds when she was on a nnngy-nf-daiba with her daughter. She told her FREELANCE DISPLAYER about the symptoms she has started to [...] mucosa, and tongue (more content not included)... [facility] 07-19-2024 History of Present illness Narrative SUBJECTIVE: Chief Complaint: Carol Ann Martienz is a 38 year old female who presents for a comprehensive problem evaluation. Patient is and due in October. She said that her right hip has been hurting for about the last 2 months. She denies any injury. She said there is a tender spot on the hip. She is not taken anything lnpq-ath-sosxwei for it. Patient has multiple sclerosis. Her [...] few seconds when she was on a uuuly-rz-lvnvo with her daughter. She told her FREELANCE DISPLAYER about the symptoms she has started to [...] by neurology. - CONSULT TO PHYSICAL THERAPY Xgswxjriy-pteisk-hz with FREELANCE DISPLAYER as scheduled. Patient said she is on pelvic rest and limited lifting due to shortened cervix. Viral URI-if symptoms worsen, take amoxicillin Dry skin on the nose-give a trial of Elocon cream Janice Lane MD documented in this encounter [facility] 07-19-2024 History of Present illness Narrative [facility] [...] been reviewed prior to dispensing the medication. Contract Technical Writer Assessment Patient confirmed: Yes Med/dose confirmed: Yes Supplies needed: No supplies needed Missed doses: No Estimated days supply on hand: 3 Next cycle/dose due: 07/19/24 Copay amount: 0 Payment confirmed: Yes Delivery method: FedEx Signature required: Waived on patient request Delivery address: [address] [place] [id number] Delivery date: 07/23/24 Questions or concerns for [...] (FLONASE) 50 mcg/actuation nasal spray Use 1 Panhandle in each nostril once daily. No current facility-administered medications on file prior to visit. [facility] RX SPECIALTY CLINICAL ASSESSMENT - [...] inject where skin looks healthy. Training video ([employer] no longer supplies nurses for training, or injection devices) PFS supplied and training video https://www.[employer]/injectio n-assistance/ciw-bk-fsiehz DDI none pertinent Vaccines reviewed Est. Tx Plan Start Date: No information available Estimated Start Date Info: No information available Est. Estimated Treatment Duration: No information available Madison Puente (AMENDIA) documented in this encounter [facility] 07-19-2024 Note HNO ID: [id number] Author: KENZIE MCCALL [facility] Service: ? Author Type: ? Type: [...] been reviewed prior to dispensing the medication. Contract Technical Writer Assessment Patient confirmed: Yes Med/dose confirmed: Yes Supplies needed: No supplies needed Missed doses: No Estimated days supply on hand: 3 Next cycle/dose due: 07/19/24 Copay amount: 0 Payment confirmed: Yes Delivery method: FedEx Signature required: Waived on patient request Delivery address: [address] [place] [id number] Delivery date: 07/23/24 Questions or concerns for [...] (FLONASE) 50 mcg/actuation nasal spray Use 1 [place]handle in each nostril once daily. No current facility-administered medications on file prior to visit. [facility] RX SPECIALTY CLINICAL ASSESSMENT - [...] inject where skin looks healthy. Training video ([employer] no longer supplies nurses for training, or injection devices) PFS supplied and training video https://www.[employer]/injectio n-assistance/jcs-pb-sibcte DDI none pertinent Vaccines reviewed Est. Tx Plan Start Date: No information available Estimated Start Date Info: No information (more content not included)... [facility] 07-08-2024 Note HNO ID: [id number] Author: IBAN LAZO, PhD Service: ? Author Type: Psychologist Type: Progress Notes Filed: 07/08/2024 14:21 Note Text: Behavioral Sleep Medicine Follow up Iban Lazo, PhD I have communicated my name and active licensure. The patient's identity and physical location were verified at the time of this visit. Either the patient or their legal equal opportunity representative has been informed of the risks and benefits of -- and alternatives to -- treatment through a remote evaluation and consents to proceed with the evaluation remotely. Contact Method: Zoom and Doximity (switched to Doximity after Zoom connection issues) Patient Confirmed Address: [address] [place] [id number] Patient Confirmed Telephone #: [phone] Time: 55 minutes Individual Psychotherapy Session # [...] disorder RLS Multiple sclerosis PROGRESS TO DATE: [facility] Progress: Condition at intake Short Term Condition: [...] of HSAT results Iban Lazo, PhD, Psychologist ([place] license [id number]) [facility] 06-22-2024 Note HNO ID: [id number] Author: NATALIE NEWBERRY RPh Service: ? Author [...] state markers and outcomes. Natalie Newberry RPh Contract Technical Writer Assessment Patient confirmed: Yes Med/dose confirmed: Yes Supplies needed: No supplies needed Missed doses: No Estimated days supply on hand: 7 Next cycle/dose due: 06/23/24 Copay amount: 0 Delivery method: FedEx Signature required: Waived on patient request Delivery address: [address] [place] [address] Delivery date: 06/25/24 Questions or concerns for [...] (FLONASE) 50 mcg/actuation nasal spray Use 1 Panhandle in each nostril once daily. No current facility-administered medications on file prior to visit. [facility] RX SPECIALTY CLINICAL ASSESSMENT - [...] inject where skin looks healthy. Training video ([employer] no longer supplies nurses for training, or injection devices) PFS supplied and training video https://[email or web address]/injectio n-assistance/vwz-pe-oxsyjm DDI none pertinent Vaccines reviewed Est. Tx Plan Start Date: No information available Estimated Start Date Info: No information available Est. Estimated Treatment Duration: No information available Rian (more content not included)... [facility] 06-22-2024 Telephone encounter Note The following approved medication requests have been transmitted electronically. Requested Prescriptions Signed Prescriptions Disp Refills glatiramer (COPAXONE) 40 mg/mL injection 12 mL 5 Sig: Inject 40 mg subcutaneously every Friday, Friday, and Friday. Authorizing Provider: TOR HERNANDEZ APRN.CNP [facility] 06-22-2024 Miscellaneous Notes The following approved medication requests have been transmitted electronically. Requested Prescriptions Signed Prescriptions Disp Refills glatiramer (COPAXONE) 40 mg/mL injection 12 mL 5 Sig: Inject 40 mg subcutaneously every Friday, Friday, and Friday. Authorizing Provider: OTR HERNANDEZ APRN.CNP Patient is in need of a new prescription as follows: Requested Prescriptions Pending Prescriptions Disp Refills glatiramer (COPAXONE) 40 mg/mL injection 12 mL 5 Sig: Inject 40 mg subcutaneously every Friday, Friday, and Friday. Last office visit 06-09-24 Please review and advise. Marcin Ervin RPh documented in this encounter [facility] 06-22-2024 Telephone encounter Note Patient is in need of a new prescription as follows: Requested Prescriptions Pending Prescriptions Disp Refills glatiramer (COPAXONE) 40 mg/mL injection 12 mL 5 Sig: Inject 40 mg subcutaneously every Friday, Friday, and Friday. Last office visit 06-09-24 Please review and advise. Marcin Ervin RPh [facility] 06-16-2024 Note HNO ID: [id number] Author: JOSR VICENTE, PhD Service: ? Author [...] Circadian Rhythm delayed. Procedure: Actigraphy (CPT code 98236) Reason for study: sleep pattern Length of [...] not included in analysis Using the Vargas Levy algorithm, data was extrapolated manually to determine [...] likely circadian rhythm sleep disorder delayed type. [place] : Josr Vicente, PhD, [facility] Psychologist ([place] License [id number]) Behavioral Sleep Medicine Disclosure: There are limitations of actigraphy data. This test is not a measure of daytime sleepiness or insomnia. Findings may suggest the etiology of sleepiness due to an observed pattern or help in the understanding of patterns associated with conditions being evaluated [facility] 06-14-2024 Note HNO ID: [id number] Author: ?, ?, ? Service: ? Author Type: ? Type: Progress Notes Filed: 06/14/2024 14:32 Note Text: Returned with logs [facility] 06-14-2024 History of Present illness Narrative Returned with logs Called patient to return watch ACTIGRAPHY DEVICE #[id number] Date shipped out 05/25/2024 [employer]ex MAIL OUT TRACKING NUMBER [id number] Fedex RETURN TRACKING NUMBER [id number], [place] documented in this encounter [facility] 06-11-2024 Telephone encounter Note This MANAGER ORACLE put in a referral to the [facility] for pt to get connected to additional resources. DEZ Archer, [facility] Social Work [facility] 06-11-2024 Miscellaneous Notes This MANAGER ORACLE put in a referral to the [facility] for pt to get connected to additional resources. DEZ Archer, [employer] OFFICER [facility] Social Work documented in this encounter [facility] 06-11-2024 Note HNO ID: [id number] Author: ?, ?, ? Service: ? Author Type: ? Type: Progress Notes Filed: 06/14/2024 14:32 Note Text: Called patient to return watch [facility] 06-10-2024 Note HNO ID: [id number] Author: CLARICE ZEPEDA [facility]UC Service: ? Author Type: Health Hooker Laster Type: Progress Notes Filed: 06/10/2024 13:06 Note Text: Mailed-nutritional supplement OTC TO PATIENT [facility] 06-10-2024 History of Present illness Narrative Mailed-nutritional supplement OTC TO PATIENT documented in this encounter [facility] 06-09-2024 Instructions Tor Hernandez APRN.CNP - 06/09/2024 3:40 PM EDT PLAN: - Continue Copaxone - plan to resume Ocrevus after delivery - Will hold on further MRI monitoring for now - Recommend oral nutritional supplement - Recommend continued close follow up with PCP and OB - Will reach out to [facility] re: finances/resources - Follow up soon after deliver documented in this encounter [facility] 06-09-2024 History of Present illness Narrative Images from the original note were not included. [facility] FOLLOWUP/ESTABLISHED VIRTUAL PATIENT VISIT PRINCIPAL NEUROLOGIC DIAGNOSIS: Multiple Sclerosis DISEASE SUMMARY Date of onset: 03/2007 Date of diagnosis of MS: 03/2007 Disease course at onset: Relapsing-Remitting Current disease course: Progressive without relapses Previous disease therapies: - Betaseron 3699-6149 - Copaxone - Tysabri 2009-Summer 2019 (stopped due to planned ) - Copaxone 0697-4865 (during ) - Ocrevus (02/28/21 through 09/25/23, d/c'd for ) Current disease therapy: Copaxone (03/2024-present) Most recent MRI brain: 01/02/23 (stable) Most recent MRI cervical spine: 01/02/23 (stable) Most recent MRI thoracic spine: 01/19/24 CSF: NA JCV: 02/14/2021 0.28, stratify negative Brief Disease History: - 2006 lower extremity numbness evolving over 3 weeks following occipital relase - 1514-2404 recurrent OS ON - 8370-4044 several relapses including L numbness, weakness, constipation, urinary urgency - 2019 R weakness and numbness needing a wheelchair, hospitalized at [facility] (off Tysabri x3 months due to planning ). Also had OD vision loss at this time. At this time also notes substantial mold exposure due to it being all over her apt (has since moved). CHIEF COMPLAINT: MS symptom management Usual treating team: Christina Today's visit is being completed virtually over [employer]. I have communicated my name and active licensure. The patient's identity and physical location were verified at the time of this visit. Either the patient or their legal equal opportunity representative has been informed of the risks [...] Flowsheet Row Social Work from 01/21/2024 in [facility] Office Visit from 07/23/2023 in [facility] Office Visit from 01/17/2023 in [facility] Upper Extremity Domain T Score 28 28.29 [...] Flowsheet Row Social Work from 01/21/2024 in [facility] Office Visit from 07/23/2023 in [facility] Office Visit from 01/17/2023 in [facility] Sleep Domain T Score 66 69.2 68.89 [...] from 07/23/2023 in [facility] Office Visit from 01/17/2023 in [facility] Processing Speed Total Number Correct 52 51 [...] and OB - Will reach out to [facility] re: finances/resources - Follow up soon after deliver No orders found for this visit on 06/09/24. I spent a total of 40 minutes on the date of the service which included preparing to see the patient, nksq-mg-cmsq patient care, completing clinical documentation, obtaining and/or reviewing separately obtained history, performing a medically appropriate examination, counseling and educating the patient/family/caregiver, communicating with other HCPs (not separately reported), independently interpreting results (not separately reported), and communicating results to the patient/family/caregiver. Tor Hernandez APRN.TREE [facility] Multiple Sclerosis documented in this encounter [facility] 06-09-2024 Note HNO ID: [id number] Author: TOR HERNANDEZ APRN.FIREPOT OPERATOR AND TENDER Service: ? Author Type: Nurse Practitioner Type: Progress Notes Filed: 06/09/2024 15:43 Note Text: [facility] FOLLOWUP/ESTABLISHED VIRTUAL PATIENT VISIT PRINCIPAL NEUROLOGIC DIAGNOSIS: Multiple Sclerosis DISEASE SUMMARY Date of onset: 03/2007 Date of diagnosis of MS: 03/2007 Disease course at onset: Relapsing-Remitting Current disease course: Progressive without relapses Previous disease therapies: - Betaseron 2563-6654 - Copaxone - Tysabri 2009-Summer 2019 (stopped [...] over 3 weeks following occipital relase - 3794-5404 recurrent OS ON - 0899-2099 several relapses including L numbness, weakness, constipation, urinary urgency - 2019 R weakness and numbness needing a wheelchair, hospitalized at [facility] (off Tysabri x3 months due to planning ). Also had OD vision loss at this time. At this time also notes substantial mold exposure due to it being all over her apt (has since moved). CHIEF COMPLAINT: MS symptom management Usual treating team: Christina Today's visit is being completed virtually over [employer]. I have communicated my name and active licensure. The patient's identity and physical location were verified at the time of this visit. Either the patient or their legal equal opportunity representative has been informed of the risks [...] Flowsheet Row Social Work from 01/21/2024 in [facility] Office Visit from 07/23/2023 in [facility] Office Visit from 01/17/2023 in [facility] Upper Extremity Domain T Score 28 28.29 [...] Flowsheet Row Social Work from 01/21/2024 in [facility] Office Visit from 07/23/2023 in [facility] Office Visit from 01/17/2023 in [facility] Sleep Domain T Score 66 69.2 68.89 [...] , currently pregna (more content not included)... [facility] 06-08-2024 Instructions Germania Wilkinson MD - [...] is done to review results. - Call [phone] to schedule your sleep study and follow [...] the central scheduling system for the Neu[facility] at [phone]. [facility] website: [email or web address] documented in this encounter [facility] 06-08-2024 Note HNO ID: [id number] Author: GERMANIA WILKINSON MD Service: ? Author Type: Physician Type: Progress Notes Filed: 07/05/2024 23:04 Note Text: [facility] Follow up/ Established patient visit Date of last visit : 08/19/2023 I have communicated my name and active licensure. The patient's identity and physical location were verified at the time of this visit. Either the patient or their legal equal opportunity representative has been informed of the risks [...] Syndrome Abnormal sleep/wake timing 03/19/2024 04/13/2024 05/23/2024 [place] Sleepiness Scale Score 0 (No clinically significant [...] (FLONASE) 50 mcg/actuation nasal spray Use 1 [place] in each nostril once daily. Prior Hypersomnia/Narcolepsy [...] prescription Medication renetta (more content not included)... [facility] 06-08-2024 History of Present illness Narrative Images from the original note were not included. [facility] Follow up/ Established patient visit Date of last visit : 08/19/2023 I have communicated my name and active licensure. The patient's identity and physical location were verified at the time of this visit. Either the patient or their legal equal opportunity representative has been informed of the risks [...] Syndrome Abnormal sleep/wake timing 03/19/2024 04/13/2024 05/23/2024 [place] Sleepiness Scale Score 0 (No clinically significant [...] (FLONASE) 50 mcg/actuation nasal spray Use 1 Panhandle in each nostril once daily. Prior Hypersomnia/Narcolepsy [...] Germania Wilkinson MD documented in this encounter [facility] 05-27-2024 Note HNO ID: [id number] Author: IBAN LAZO, PhD Service: ? Author Type: Psychologist Type: Progress Notes Filed: 05/27/2024 18:02 Note Text: Behavioral Sleep Medicine Follow up Iban Lazo, PhD I have communicated my name and active licensure. The patient's identity and physical location were verified at the time of this visit. Either the patient or their legal equal opportunity representative has been informed of the risks and benefits of -- and alternatives to -- treatment through a remote evaluation and consents to proceed with the evaluation remotely. 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 Patient Confirmed Telephone #: [phone] Time: 33 minutes Individual Psychotherapy Session # [...] to avoid driving if sleepy/drowsy and to box puller to a safe space to rest if she does find herself drowsy/sleepy while driving. Pt noted that her FREELANCE DISPLAYER stated she could take Unisom to sleep during - asked pt to wait to take this medication until after she completes actigraphy testing as we want to get a sense of her baseline sleep rhythms. Pt verbalized understanding. Pt reported that sleep quality has been the same. Pt stated that she is working with a therapist at [facility] named Aravind Retana- she reported that they most recently have talked about helping her to stop shopping and learning how to say no to people. Pt provided verbal consent for this provider to contact Aravind Retana to discuss pt's case to coordinate care and provided his contact phone number: [phone] Discussed the following plan with patient Complete [...] disorder RLS Multiple sclerosis PROGRESS TO DATE: Station Mechanic Apprentice Progress: Condition at intake Short Term Condition: [...] to start Uniso (more content not included)... [facility] 05-25-2024 Note HNO ID: [id number] Author: ?, ?, ? Service: ? Author Type: ? Type: Progress Notes Filed: 06/14/2024 14:32 Note Text: ACTIGRAPHY DEVICE #[id number] Date shipped out 05/25/2024 [employer] MAIL OUT TRACKING NUMBER [id number] [employer] RETURN TRACKING NUMBER [id number], Achasah [facility] 05-24-2024 History of Present illness Narrative [...] laboratory parameters, disease state markers and outcomes. Contract Technical Writer Assessment Patient confirmed: Yes Med/dose confirmed: Yes Supplies needed: Alcohol swabs Missed doses: No Estimated days supply on hand: 10 Next cycle/dose due: 05/26/24 Copay amount: 0 Delivery method: FedEx Signature required: Waived on patient request Delivery address: [address] [place] [id number] Delivery date: 06/01/24 Questions or concerns for [...] (FLONASE) 50 mcg/actuation nasal spray Use 1 [place]handle in each nostril once daily. No current facility-administered medications on file prior to visit. [facility] Visit Assessment - Neurology: Assessment [...] inject where skin looks healthy. Training video ([employer] no longer supplies nurses for training, or injection devices) PFS supplied and training video [email or web address]-[email or web address] DDI none pertinent Vaccines reviewed Jus Saucedo CPhT Neurology, Cardiology & Infectious Disease [facility] documented in this encounter [facility] 05-24-2024 Note HNO ID: [id number] Author: MARCIN ERVIN RPh Service: ? Author [...] markers and outcomes. Marcin Ervin, DevonteD Pharmacist, [facility] Specialty Business Planning Analyst Assessment Patient confirmed: Yes Med/dose confirmed: Yes Supplies needed: Alcohol swabs Missed doses: No Estimated days supply on hand: 10 Next cycle/dose due: 05/26/24 Copay amount: 0 Delivery method: FedEx Signature required: Waived on patient request Delivery address: Latisha Adams [address] [address] Delivery date: 06/01/24 Questions or concerns for [...] (FLONASE) 50 mcg/actuation nasal spray Use 1 [place]handle in each nostril once daily. No current facility-administered medications on file prior to visit. [facility] Visit Assessment - Neurology: Assessment [...] inject where skin looks healthy. Training video ([employer] no longer supplies nurses for training, or injection devices) PFS supplied and training video [email or web address] [email or web address]-qu-ygutuo DDI none pertinent Vaccines reviewed Refill Assessment: Assessment of injection issues or necrosis at injection sites: Yes Screening for infection: Yes Adverse reactions and mitigation: Yes Drug specific assessments, as appropriate: Yes Additional Assessment: S/Sx of relapse: No S/Sx of progression to secondary progressive disease: No (more content not included)... [facility] 05-10-2024 Note HNO ID: [id number] Author: IBAN LAZO, PhD Service: ? Author Type: Psychologist Type: Progress Notes Filed: 05/10/2024 14:16 Note Text: Appointment canceled. Pt logged on to visit but was located in a public setting and in the state of [place]. Explained that due to psychology licensure laws I cannot meet with patients unless they are physically located within the state of [place]. Pt stated she is returning to [place] on Wednesday 05/16. Next visit scheduled for 05/27. Iban Lazo, PhD, Psychologist ([place] license [id number]) [facility] 04-26-2024 History of Present illness Narrative [...] laboratory parameters, disease state markers and outcomes. Contract Technical Writer Assessment Patient confirmed: Yes Med/dose confirmed: Yes Supplies needed: No supplies needed Missed doses: Yes Count of missed doses: 1 Reason for missed doses: stated medication misfired Estimated days supply on hand: 4 Next cycle/dose due: 04/26/24 Copay amount: 0 Payment confirmed: Yes Delivery method: FedEx Signature required: Waived on patient request Delivery address: [address] [place] [id number] Delivery date: 04/28/24 Questions or concerns for [...] (FLONASE) 50 mcg/actuation nasal spray Use 1 [place]handle in each nostril once daily. No current facility-administered medications on file prior to visit. [facility] Visit Assessment - Neurology: Assessment [...] inject where skin looks healthy. Training video ([employer] no longer supplies nurses for training, or injection devices) PFS supplied and training video [email or web address] [email or web address]-[email or web address] DDI none pertinent Vaccines reviewed Jazmine Mcclure CPhT Cardiology, Neurology & Infectious Disease [facility] documented in this encounter [facility] 04-26-2024 Note HNO ID: [id number] Author: MARCIN ERVIN RPh Service: ? Author [...] markers and outcomes. Marcin Ervin, PharmD Pharmacist, [facility] Specialty Business Planning Analyst Assessment Patient confirmed: Yes Med/dose confirmed: Yes Supplies needed: No supplies needed Missed doses: Yes Count of missed doses: 1 Reason for missed doses: stated medication misfired Estimated days supply on hand: 4 Next cycle/dose due: 04/26/24 Copay amount: 0 Payment confirmed: Yes Delivery method: FedEx Signature required: Waived on patient request Delivery address: [address] [place] [address] Delivery date: 04/28/24 Questions or concerns for [...] (FLONASE) 50 mcg/actuation nasal spray Use 1 [place] in each nostril once daily. No current facility-administered medications on file prior to visit. [facility] Visit Assessment - Neurology: Assessment [...] inject where skin looks healthy. Training video ([employer] no longer supplies nurses for training, or injection devices) PFS supplied and training video [email or web address] [email or web address]-[email or web address] DDI none pertinent Vaccines reviewed Refill Assessment: Assessment of injection issues or necrosis at injection sites: Yes Screening for infection: Yes Adverse reactions and mitigation: Yes Drug specific assessments, as appropriate: Yes Additional Assessment: Current MPR%: 100 S/Sx of relapse: No S/Sx of progression to secondary progressive disease: (more content not included)... [facility] 04-20-2024 Note HNO ID: [id number] Author: IBAN LAZO, PhD Service: ? Author Type: Psychologist Type: Progress Notes Filed: 04/21/2024 12:27 Note Text: Behavioral Sleep Medicine Follow up Iban Lazo, PhD I have communicated my name and active licensure. The patient's identity and physical location were verified at the time of this visit. Either the patient or their legal equal opportunity representative has been informed of the risks and benefits of -- and alternatives to -- treatment through a remote evaluation and consents to proceed with the evaluation remotely. 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 6. (more content not included)... [facility] 03-31-2024 History of Present illness Narrative [facility] received prescription(s) for Glatiramer from Dr. Tor Hernandez office. Benefits investigation was conducted, indicating we will need to call to verify if a prior authorization is required/needed by pt's plan with [employer] . Thang Santana CPhT (Dee) [facility] Neurology/Cardiology/Infections Disease [facility] P: F: PA for pt's Glatiramer has been approved by [employer]. Reuben 03/31/24 - 11/09/24. Madison Puente [facility] Business Planning Analyst, Specialty Pharmacy [facility] [address] / [id number] [place] [address] Email: [email or web address] documented in this encounter [facility] 03-31-2024 Note HNO ID: [id number] Author: ?, ?, ? Service: ? Author Type: ? Type: Progress Notes Filed: 03/31/2024 10:57 Note Text: [facility] received prescription(s) for Glatiramer from Dr. Tor Hernandez office. Benefits investigation was conducted, indicating we will need to call to verify if a prior authorization is required/needed by pt's plan with [employer] . Thang Santana CPhT (Dee) [facility] Neurology/Cardiology/Infections Disease [facility] P: F: [facility] 03-31-2024 Note HNO ID: [id number] Author: ?, ?, ? Service: ? Author Type: ? Type: Progress Notes Filed: 03/31/2024 12:24 Note Text: PA for pt's Glatiramer has been approved by Sherri. Reuben 03/31/24 - 11/09/24. Madison Puente [facility] Business Planning Analyst, Specialty Pharmacy [facility] [address] / [id number] [place] [address] Email: [email or web address] [facility] 03-31-2024 Note HNO ID: [id number] Author: NATALIE NEWBERRY, [facility] Service: ? Author Type: Pharmacist Type: Progress Notes Filed: 04/08/2024 11:37 Note Text: [facility] received prescription(s) for Glatiramer from Dr. Warren's office. Benefits investigation was conducted, indicating that a prior authorization is required. PA was approved with details listed below: Plan Name: Sherri GRIGGS reference number: [id number] Approval Dates: 03/31/24 to 11/09/24 Pt's copay [...] MD No Neurogenic bladder 07/14/2020 Nikole Moe APRN.FIREPOT OPERATOR AND TENDER No Overview Signed 04/17/2021 7:30 AM by Nikole Moe APRN.FIREPOT OPERATOR AND TENDER On most recent creatinine was normal. Will obtain renal ultrasound at her convenience to assess for any upper tract changes On most recent creatinine was normal. Will obtain renal ultrasound at her convenience to assess for any upper tract changes Chronic insomnia 01/04/2020 Iesha Pearson MD No Multiple sclerosis (HCC) 11/15/2019 Nidia Garcia MD No Optic neuritis 08/21/2019 Nikole Moe APRN.FIREPOT OPERATOR AND TENDER No Overview Signed 04/17/2021 7:30 AM by Nikole Moe APRN.FIREPOT OPERATOR AND TENDER Start Date: 03/2009 Start Date: 03/2009 Bilateral hearing loss 07/14/2018 Nikole Moe APRN.FIREPOT OPERATOR AND TENDER No Ovarian cyst, complex 04/14/2018 Nikole Moe, STRAP CUTTING MACHINE OPERATOR.FIREPOT OPERATOR AND TENDER No Ovarian torsion 04/14/2018 Nikole Moe STRAP CUTTING MACHINE OPERATOR.FIREPOT OPERATOR AND TENDER No Restless leg syndrome 07/28/2017 Nikole Moe, STRAP CUTTING MACHINE OPERATOR.FIREPOT OPERATOR AND TENDER No Cognitive communication deficit 07/22/2022 Amina Vazquez, CCC-ASSISTANT UNIT FORESTER 07/17/[address] MD Costochondritis, acute 04/17/2021 Nikole Moe, STRAP CUTTING MACHINE OPERATOR.FIREPOT OPERATOR AND TENDER 04/20/2021 Nikole Moe, STRAP CUTTING MACHINE OPERATOR.FIREPOT OPERATOR AND TENDER Edema of lower extremity 04/17/2021 Nikole Moe, STRAP CUTTING MACHINE OPERATOR.FIREPOT OPERATOR AND TENDER 04/20/2021 Nikole Moe, STRAP CUTTING MACHINE OPERATOR.FIREPOT OPERATOR AND TENDER Hypoglycemia 03/07/2021 Nikole Moe, STRAP CUTTING MACHINE OPERATOR.FIREPOT OPERATOR AND TENDER 07/17/[address] MD NO SHOW 01/22/2021 Lala Forman, DO 04/17/2021 Nikole Moe STRAP CUTTING MACHINE OPERATOR.FIREPOT OPERATOR AND TENDER Encounter for induction of labor 01/08/2021 Subha Ordoñez, RN 01/11/2021 Jo-Ann Aragon MD Encounter for [...] Jo-Ann Aragon MD Constipation 10/06/2019 Nikole Moe, STRAP CUTTING MACHINE OPERATOR.FIREPOT OPERATOR AND TENDER 07/17/[address] MD Gait difficulty 10/06/2019 Nikole Moe, STRAP CUTTING MACHINE OPERATOR.FIREPOT OPERATOR AND TENDER 07/17/[address] MD Cognitive complaints 03/03/2019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 Authorized [id number] Authorized Auto-Generat ed Referral 12/11/2023 08/21/2024 1 1 Specialty Diagnoses / Procedures Referred By Contac t Referred To Contact Diagnoses Multiple sclerosis (HCC) Chronic insomnia Restless leg syndrome Procedures CONSULT TO SLEEP MEDICINE - ADULT OFFICE/OUTPATIENT [facility] 60-74 MINUTES Tor Hernandez APRN.CNP [address] [place] [address] Referral ID Status Reason Start Date Expiration Date Visits Requested Visits Authorized [id number] Pending Review PCP Requested Referral 07/31/2023 07/30/2024 1 1 Referral ID Status Reason Start Date Expiration Date Visits Requested Visits Authorized [id number] Pending Review Auto-Generat ed Referral 07/31/2023 07/30/2024 1 1 Specialty Diagnoses / Procedures Referred By Contac t Referred To Contact MR IMAGING Diagnoses Multiple sclerosis (HCC) Procedures MRI THORACIC SPINE WO/W IVCON MRI SPINAL CANAL THORACIC W/O & W/CONTR MATRL Tor Hernandez APRN.FIREPOT OPERATOR AND TENDER [address] [place] [phone] Mr Imaging [place] [address] Referral ID Status Reason Start Date Expiration Date Visits Requested Visits Authorized [id number] Pending Review Auto-Generat ed Referral 12/25/2023 01/23/2025 1 1 Specialty Diagnoses / Procedures Referred By Contac t Referred To Contact Diagnoses Multiple sclerosis (HCC) Tor Hernandez APRN.FIREPOT OPERATOR AND TENDER [address] [place] [phone] Referral ID Status Reason Start Date Expiration Date V isits Requested Visits Authorized [id number] Pending Review 1 1 Specialty Diagnoses / Procedures Referred By Contac t Referred To Contact Diagnoses Multiple sclerosis (HCC) Procedures CONSULT TO [facility] Tor Hernandez APRN.FIREPOT OPERATOR AND TENDER [address] [place] [phone] Home [facility] [address] [place] [address] Referral ID Status Reason Start Date Expiration Date Visits Requested Visits Authorized [id number] Authorized PCP Requested Referral 12/25/2023 03/24/2024 1 1 Referral ID Status Reason Start Date Expiration Date V isits Requested Visits Authorized [id number] Closed Auto-Generate d Referral 01/16/2024 02/15/2024 1 1 Specialty Diagnoses / Procedures Referred By Contac t Referred To Contact Diagnoses Multiple sclerosis (HCC) Procedures CONSULT TO SPEECH THERAPY Tor Hernandez APRN.FIREPOT OPERATOR AND TENDER [address] [place] [address] Referral ID Status Reason Start Date Expiration Date Visits Requested Visits Authorized [id number] Ref Not Required PCP Requested Referral 02/26/2024 02/25/2025 1 1 Referral ID Status Reason Start Date Expiration Date Visits Requested Visits Authorized [id number] Pending Review Auto-Generat ed Referral 02/26/2024 02/25/2025 1 1 Specialty Diagnoses / Procedures Referred By Contac t Referred To Contact [facility] Diagnoses Multiple sclerosis (HCC) Procedures CONSULT TO PHYSICAL THERAPY PHYSICAL THERAPY EVALUATION HIGH COMPLEX 45 MINS Tor Hernandez APRN.FIREPOT OPERATOR AND TENDER [address] [place] [address] [facility] [address] [address] Referral ID Status Reason Start Date Expiration Date Visits Requested Visits Authorized [id number] Pending Review Auto-Generat ed Referral 02/26/2024 02/25/2025 1 1 Specialty Diagnoses / Procedures Referred By Contac t Referred To Contact [facility] Diagnoses Right hip pain Multiple sclerosis (HCC) Procedures CONSULT TO PHYSICAL THERAPY PHYSICAL THERAPY EVALUATION HIGH COMPLEX [address] MD [address] [place] [address] [facility] [address] [address] Referral ID Status Reason Start Date Expiration Date Visits Requested Visits Authorized [id number] Authorized Auto-Generat ed Referral 11/10/2023 11/09/2024 1 1 Specialty Diagnoses / Procedures Referred By Contac t Referred To Contact [facility] Diagnoses Vasovagal syncope Procedures ECG COMPLETE ECG ROUTINE ECG W/LEAST 12 LDS W/I&R Janice Lane MD [address] [place] [address] [facility] [address] [place] [address] Referral ID Status Reason Start Date Expiration Date Visits Requested Visits Authorized [id number] New Request Auto-Generat ed Referral 07/19/2024 07/19/2025 1 1 Specialty Diagnoses / Procedures Referred By Contac t Referred To Contact MR IMAGING Diagnoses Multiple sclerosis (HCC) Procedures MRI CERVICAL SPINE WO/W IVCON MRI SPINAL CANAL CERVICAL W/O & W/CONTR HERNANDOL Nesha Santana MD [address] [place] [address] Imaging [facility] Referral ID Status Reason Start Date Expiration Date V isits Requested Visits Authorized [id number] Closed Auto-Generate d Referral 02/05/2023 12/07/2023 1 1 Specialty Diagnoses / Procedures Referred By Contac t Referred To Contact MR IMAGING Diagnoses Multiple sclerosis (HCC) Procedures MRI BRAIN WO/W IVCON MRI BRAIN BRAIN STEM W/O W/CONTRAST MATERIAL Nesha Santana MD [address] [place] [phone] Imaging [place] [address] Referral ID Status Reason Start Date Expiration Date V isits Requested Visits Authorized [id number] Closed Auto-Generate d Referral 02/05/2023 12/07/2023 1 1 Specialty Diagnoses / Procedures Referred By Contac t Referred To Contact MR IMAGING Diagnoses Multiple sclerosis (HCC) Procedures MRI CERVICAL SPINE WO/W IVCON MRI SPINAL CANAL CERVICAL W/O & W/CONTR MATRL Marshall Hanley MD, PhD [address] [place] [phone] Imaging [place] [address] Referral ID Status Reason Start Date Expiration Date V isits Requested Visits Authorized [id number] Closed Auto-Generate d Referral 07/18/2022 08/17/2022 1 1 Specialty Diagnoses / Procedures Referred By Contac t Referred To Contact MR IMAGING Diagnoses Multiple sclerosis (HCC) Procedures MRI BRAIN WO/W IVCON MRI BRAIN BRAIN STEM W/O W/CONTRAST MATERIAL Marshall Hanley MD, PhD [address] [place] [phone] Imaging [facility] Referral ID Status Reason Start Date Expiration Date V isits Requested Visits Authorized [id number] Closed Auto-Generate d Referral 07/18/2022 08/17/2022 1 1 Specialty Diagnoses / Procedures Referred By Contac t Referred To Contact MR IMAGING Diagnoses Multiple sclerosis (HCC) Procedures MRI THORACIC SPINE WO/W IVCON MRI SPINAL CANAL THORACIC W/O & W/CONTR Marshall Beltrán MD, PhD [address] [place] [address] [place] [address] Referral ID Status Reason Start Date Expiration Date V isits Requested Visits Authorized [id number] Closed Auto-Generate d Referral 07/18/2022 08/17/2022 1 [...] biophysical profile wo non stress testing Clarke uH DO [address] [facility] [address], [place] [address] Referral ID Status Reason Start Date Expiration Date Visits Requested Visits Authorized [id number] Authorized Perform Procedure 08/17/2024 08/17/2025 1 1 Specialty Diagnoses / Procedures Referred By [employer] [employer] Referred To Contact PHYSICAL THERAPY Diagnoses Right hip pain Procedures PT REHAB FOLLOW UP ORDER THERAPEUTIC EXERCISES RE, EA 15 MIN. Estrella Sorto, PT, DPT [address] [place] [address] [facility] [place] [facility] [address] [place] [address] Referral ID Status Reason Start Date Expiration Date Visits Requested Visits Authorized [id number] New Request PCP Requested Referral Auto-Generate d Referral 12/02/2024 1 1 Health Concerns Infection Onset Date Last Indicated Resolved Time COVID-19 Rule-Out 02/12/2023 02/12/2023 Additional Source Comments INFORMATION SOURCE (unrecogn ized section and content) DATE CREATED AUTHOR 10/03/2020 [facility] DATE CREATED AUTHOR AUTHOR'S ORGANIZ ATION 01/05/2021 [facility] DATE CREATED AUTHOR AUTHOR'S ORGANIZ ATION 01/05/2021 [facility] DATE CREATED AUTHOR AUTHOR'S ORGANIZ ATION 12/17/2021 [facility] DATE CREATED AUTHOR AUTHOR'S ORGANIZ ATION 03/31/2022 [facility] DATE CREATED AUTHOR AUTHOR'S ORGANIZ ATION 01/25/2023 [facility] DATE CREATED AUTHOR AUTHOR'S ORGANIZ ATION 04/05/2024 [facility] DATE CREATED AUTHOR AUTHOR'S ORGANIZ ATION 10/06/2024 [facility] EP[facility] DATE CREATED AUTHOR AUTHOR'S ORGANIZ ATION 10/08/2024 [facility] DATE CREATED AUTHOR AUTHOR'S ORGANIZ ATION 10/12/2024 [facility] Source Comments (unrecognize d section and content) In the event this informatio n is protected by the Federal Confidentiality of Alcohol and Drug Abuse Patient Records regulations: The Federal rules restrict any use of the information to criminally investigate or prosecute any alcohol or drug abuse patient.[facility] [place] the event this information is protected by the Federal Confidentiality of Alcohol and Drug Abuse Patient Records regulations: The Federal rules restrict any use of the information to criminally investigate or prosecute any alcohol or drug abuse patient.[facility] [place] the event this information is protected by the Federal Confidentiality of Alcohol and Drug Abuse Patient Records regulations: The Federal rules restrict any use of the information to criminally investigate or prosecute any alcohol or drug abuse patient.[facility] [place] the event this information is protected by the Federal Confidentiality of Alcohol and Drug Abuse Patient Records regulations: The Federal rules restrict any use of the information to criminally investigate or prosecute any alcohol or drug abuse patient.[facility] [place] the event this information is protected by the Federal Confidentiality of Alcohol and Drug Abuse Patient Records regulations: The Federal rules restrict any use of the information to criminally investigate or prosecute any alcohol or drug abuse patient.[facility] [place] the event this information is protected by the Federal Confidentiality of Alcohol and Drug Abuse Patient Records regulations: The Federal rules restrict any use of the information to criminally investigate or prosecute any alcohol or drug abuse patient.[facility] [place]In the event this information is protected by the Federal Confidentiality of Alcohol and Drug Abuse Patient Records regulations: The Federal rules restrict any use of the information to criminally investigate or prosecute any alcohol or drug abuse patient.[facility] [place]In the event this information is protected by the Federal Confidentiality of Alcohol and Drug Abuse Patient Records regulations: The Federal rules restrict any use of the information to criminally investigate or prosecute any alcohol or drug abuse patient.[facility] [place]In the event this information is protected by the Federal Confidentiality of Alcohol and Drug Abuse Patient Records regulations: The Federal rules restrict any use of the information to criminally investigate or prosecute any alcohol or drug abuse patient.[facility] [place]In the event this information is protected by the Federal Confidentiality of Alcohol and Drug Abuse Patient Records regulations: The Federal rules restrict any use of the information to criminally investigate or prosecute any alcohol or drug abuse patient.[facility] [place]In the event this information is protected by the Federal Confidentiality of Alcohol and Drug Abuse Patient Records regulations: The Federal rules restrict any use of the information to criminally investigate or prosecute any alcohol or drug abuse patient.[facility] [place]In the event this information is protected by the Federal Confidentiality of Alcohol and Drug Abuse Patient Records regulations: The Federal rules restrict any use of the information to criminally investigate or prosecute any alcohol or drug abuse patient.[facility] [place]In the event this information is protected by the Federal Confidentiality of Alcohol and Drug Abuse Patient Records regulations: The Federal rules restrict any use of the information to criminally investigate or prosecute any alcohol or drug abuse patient.[facility] OhioIn the event this information is protected by the Federal Confidentiality of Alcohol and Drug Abuse Patient Records regulations: The Federal rules restrict any use of the information to criminally investigate or prosecute any alcohol or drug abuse patient.[facility] [place]In the event this information is protected by the Federal Confidentiality of Alcohol and Drug Abuse Patient Records regulations: The Federal rules restrict any use of the information to criminally investigate or prosecute any alcohol or drug abuse patient.[facility] [place]In the event this information is protected by the Federal Confidentiality of Alcohol and Drug Abuse Patient Records regulations: The Federal rules restrict any use of the information to criminally investigate or prosecute any alcohol or drug abuse patient.[facility] OhioIn the event this information is protected by the Federal Confidentiality of Alcohol and Drug Abuse Patient Records regulations: The Federal rules restrict any use of the information to criminally investigate or prosecute any alcohol or drug abuse patient.[facility] [place]In the event this information is protected by the Federal Confidentiality of Alcohol and Drug Abuse Patient Records regulations: The Federal rules restrict any use of the information to criminally investigate or prosecute any alcohol or drug abuse patient.[facility] OhioIn the event this information is protected by the Federal Confidentiality of Alcohol and Drug Abuse Patient Records regulations: The Federal rules restrict any use of the information to criminally investigate or prosecute any alcohol or drug abuse patient.[facility] OhioIn the event this information is protected by the Federal Confidentiality of Alcohol and Drug Abuse Patient Records regulations: The Federal rules restrict any use of the information to criminally investigate or prosecute any alcohol or drug abuse patient.[facility] [place]In the event this information is protected by the Federal Confidentiality of Alcohol and Drug Abuse Patient Records regulations: The Federal rules restrict any use of the information to criminally investigate or prosecute any alcohol or drug abuse patient.[facility] [place]In the event this information is protected by the Federal Confidentiality of Alcohol and Drug Abuse Patient Records regulations: The Federal rules restrict any use of the information to criminally investigate or prosecute any alcohol or drug abuse patient.[facility] [place]In the event this information is protected by the Federal Confidentiality of Alcohol and Drug Abuse Patient Records regulations: The Federal rules restrict any use of the information to criminally investigate or prosecute any alcohol or drug abuse patient.[facility] [place]In the event this information is protected by the Federal Confidentiality of Alcohol and Drug Abuse Patient Records regulations: The Federal rules restrict any use of the information to criminally investigate or prosecute any alcohol or drug abuse patient.[facility] [place]In the event this information is protected by the Federal Confidentiality of Alcohol and Drug Abuse Patient Records regulations: The Federal rules restrict any use of the information to criminally investigate or prosecute any alcohol or drug abuse patient.[facility] [place]In the event this information is protected by the Federal Confidentiality of Alcohol and Drug Abuse Patient Records regulations: The Federal rules restrict any use of the information to criminally investigate or prosecute any alcohol or drug abuse patient.[facility] [place]In the event this information is protected by the Federal Confidentiality of Alcohol and Drug Abuse Patient Records regulations: The Federal rules restrict any use of the information to criminally investigate or prosecute any alcohol or drug abuse patient.[facility] [place]In the event this information is protected by the Federal Confidentiality of Alcohol and Drug Abuse Patient Records regulations: The Federal rules restrict any use of the information to criminally investigate or prosecute any alcohol or drug abuse patient.[facility] [place]In the event this information is protected by the Federal Confidentiality of Alcohol and Drug Abuse Patient Records regulations: The Federal rules restrict any use of the information to criminally investigate or prosecute any alcohol or drug abuse patient.[facility] [place]In the event this information is protected by the Federal Confidentiality of Alcohol and Drug Abuse Patient Records regulations: The Federal rules restrict any use of the information to criminally investigate or prosecute any alcohol or drug abuse patient.[facility] [place]In the event this information is protected by the Federal Confidentiality of Alcohol and Drug Abuse Patient Records regulations: The Federal rules restrict any use of the information to criminally investigate or prosecute any alcohol or drug abuse patient.[facility] [place]In the event this information is protected by the Federal Confidentiality of Alcohol and Drug Abuse Patient Records regulations: The Federal rules restrict any use of the information to criminally investigate or prosecute any alcohol or drug abuse patient.[facility] [place]In the event this information is protected by the Federal Confidentiality of Alcohol and Drug Abuse Patient Records regulations: The Federal rules restrict any use of the information to criminally investigate or prosecute any alcohol or drug abuse patient.[facility] [place]In the event this information is protected by the Federal Confidentiality of Alcohol and Drug Abuse Patient Records regulations: The Federal rules restrict any use of the information to criminally investigate or prosecute any alcohol or drug abuse patient.[facility] [place]In the event this information is protected by the Federal Confidentiality of Alcohol and Drug Abuse Patient Records regulations: The Federal rules restrict any use of the information to criminally investigate or prosecute any alcohol or drug abuse patient.[facility] [place]In the event this information is protected by the Federal Confidentiality of Alcohol and Drug Abuse Patient Records regulations: The Federal rules restrict any use of the information to criminally investigate or prosecute any alcohol or drug abuse patient.[facility] [place]In the event this information is protected by the Federal Confidentiality of Alcohol and Drug Abuse Patient Records regulations: The Federal rules restrict any use of the information to criminally investigate or prosecute any alcohol or drug abuse patient.[facility] [place]In the event this information is protected by the Federal Confidentiality of Alcohol and Drug Abuse Patient Records regulations: The Federal rules restrict any use of the information to criminally investigate or prosecute any alcohol or drug abuse patient.[facility] [place]In the event this information is protected by the Federal Confidentiality of Alcohol and Drug Abuse Patient Records regulations: The Federal rules restrict any use of the information to criminally investigate or prosecute any alcohol or drug abuse patient.[facility] [place]In the event this information is protected by the Federal Confidentiality of Alcohol and Drug Abuse Patient Records regulations: The Federal rules restrict any use of the information to criminally investigate or prosecute any alcohol or drug abuse patient.[facility] [place]In the event this information is protected by the Federal Confidentiality of Alcohol and Drug Abuse Patient Records regulations: The Federal rules restrict any use of the information to criminally investigate or prosecute any alcohol or drug abuse patient.[facility] [place]In the event this information is protected by the Federal Confidentiality of Alcohol and Drug Abuse Patient Records regulations: The Federal rules restrict any use of the information to criminally investigate or prosecute any alcohol or drug abuse patient.[facility] [place]In the event this information is protected by the Federal Confidentiality of Alcohol and Drug Abuse Patient Records regulations: The Federal rules restrict any use of the information to criminally investigate or prosecute any alcohol or drug abuse patient.[facility] [place]In the event this information is protected by the Federal Confidentiality of Alcohol and Drug Abuse Patient Records regulations: The Federal rules restrict any use of the information to criminally investigate or prosecute any alcohol or drug abuse patient.[facility] [place]In the event this information is protected by the Federal Confidentiality of Alcohol and Drug Abuse Patient Records regulations: The Federal rules restrict any use of the information to criminally investigate or prosecute any alcohol or drug abuse patient.[facility] [place]In the event this information is protected by the Federal Confidentiality of Alcohol and Drug Abuse Patient Records regulations: The Federal rules restrict any use of the information to criminally investigate or prosecute any alcohol or drug abuse patient.[facility] [place]In the event this information is protected by the Federal Confidentiality of Alcohol and Drug Abuse Patient Records regulations: The Federal rules restrict any use of the information to criminally investigate or prosecute any alcohol or drug abuse patient.[facility] [place]In the event this information is protected by the Federal Confidentiality of Alcohol and Drug Abuse Patient Records regulations: The Federal rules restrict any use of the information to criminally investigate or prosecute any alcohol or drug abuse patient.[facility] [place]In the event this information is protected by the Federal Confidentiality of Alcohol and Drug Abuse Patient Records regulations: The Federal rules restrict any use of the information to criminally investigate or prosecute any alcohol or drug abuse patient.[facility] [place]In the event this information is protected by the Federal Confidentiality of Alcohol and Drug Abuse Patient Records regulations: The Federal rules restrict any use of the information to criminally investigate or prosecute any alcohol or drug abuse patient.[facility] [place]In the event this information is protected by the Federal Confidentiality of Alcohol and Drug Abuse Patient Records regulations: The Federal rules restrict any use of the information to criminally investigate or prosecute any alcohol or drug abuse patient.[facility] [place]In the event this information is protected by the Federal Confidentiality of Alcohol and Drug Abuse Patient Records regulations: The Federal rules restrict any use of the information to criminally investigate or prosecute any alcohol or drug abuse patient.[facility] [place]In the event this information is protected by the Federal Confidentiality of Alcohol and Drug Abuse Patient Records regulations: The Federal rules restrict any use of the information to criminally investigate or prosecute any alcohol or drug abuse patient.[facility] [place]In the event this information is protected by the Federal Confidentiality of Alcohol and Drug Abuse Patient Records regulations: The Federal rules restrict any use of the information to criminally investigate or prosecute any alcohol or drug abuse patient.[facility] [place]In the event this information is protected by the Federal Confidentiality of Alcohol and Drug Abuse Patient Records regulations: The Federal rules restrict any use of the information to criminally investigate or prosecute any alcohol or drug abuse patient.[facility] [place]In the event this information is protected by the Federal Confidentiality of Alcohol and Drug Abuse Patient Records regulations: The Federal rules restrict any use of the information to criminally investigate or prosecute any alcohol or drug abuse patient.[facility] [place]In the event this information is protected by the Federal Confidentiality of Alcohol and Drug Abuse Patient Records regulations: The Federal rules restrict any use of the information to criminally investigate or prosecute any alcohol or drug abuse patient.[facility] [place]In the event this information is protected by the Federal Confidentiality of Alcohol and Drug Abuse Patient Records regulations: The Federal rules restrict any use of the information to criminally investigate or prosecute any alcohol or drug abuse patient.[facility] [place]In the event this information is protected by the Federal Confidentiality of Alcohol and Drug Abuse Patient Records regulations: The Federal rules restrict any use of the information to criminally investigate or prosecute any alcohol or drug abuse patient.[facility] [place]In the event this information is protected by the Federal Confidentiality of Alcohol and Drug Abuse Patient Records regulations: The Federal rules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 Start Date End Date Janice Lane MD [address] [place] [address] PCP - General Family Medicine 12/09/19 Human Resource Consultant Relationship Specialty Start Date End Date Janice Lane MD [address] [place] [address] PCP - General Family Medicine 12/09/19 Human Resource Consultant Relationship Specialty Start Date End Date Janice Lane MD [address] [place] [address] PCP - General Family Medicine 12/09/19 Human Resource Consultant Relationship Specialty Start Date End Date Janice Lane MD [address] [place] [address] PCP - General Family Medicine 12/09/19 Human Resource Consultant Relationship Specialty Start Date End Date Janice Lane MD [address] [place] [address] PCP - General Family Medicine 12/09/19 Human Resource Consultant Relationship Specialty Start Date End Date Janice Lane MD [address] [place] [address] PCP - General Family Medicine 12/09/19 Human Resource Consultant Relationship Specialty Start Date End Date Janice Lane MD [address] [place] [address] PCP - General Family Medicine 12/09/19 Human Resource Consultant Relationship Specialty Start Date End Date Janice Lane MD [address] [place] [address] PCP - General Family Medicine 12/09/19 Human Resource Consultant Relationship Specialty Start Date End Date Janice Lane MD [address] [place] [address] PCP - General Family Medicine 12/09/19 Human Resource Consultant Relationship Specialty Start Date End Date Janice Lane MD [address] [place] [address] PCP - General Family Medicine 12/09/19 Human Resource Consultant Relationship Specialty Start Date End Date Janice Lane MD [address] [place] [address] PCP - General Family Medicine 12/09/19 Human Resource Consultant Relationship Specialty Start Date End Date Janice Lane MD [address] [place] [address] PCP - General Family Medicine 12/09/19 Human Resource Consultant Relationship Specialty Start Date End Date Janice Lane MD [address] [place] [address] PCP - General Family Medicine 12/09/19 Human Resource Consultant Relationship Specialty Start Date End Date Janice Lane MD [address] [place] [address] PCP - General Family Medicine 12/09/19 Human Resource Consultant Relationship Specialty [place] [address] [place] [address] PCP - General Pediatrics 10/26/23 Human Resource Consultant Relationship Specialty [place] [address] [place] [address] PCP - General Pediatrics 10/26/23 Human Resource Consultant Relationship Specialty Start Date End Date Janice Lane MD [address] [place] [address] PCP - General Family Medicine 12/09/19 Human Resource Consultant Relationship Specialty Start Date End Date Janice Lane MD [address] [place] [address] PCP - General Family Medicine 12/09/19 Human Resource Consultant Relationship Specialty Start Date End Date Janice Lane MD [address] [facility] [place] [address] PCP - General Family Medicine 12/09/19 Human Resource Consultant Relationship Specialty Start Date End Date Janice Lane MD [address] [place] [address] PCP - General Family Medicine 12/09/19 Human Resource Consultant Relationship Specialty Start Date End Date Janice Lane MD [address] [place] [address] PCP - General Family Medicine 12/09/19 Human Resource Consultant Relationship Specialty Start Date End Date Janice Lane MD [address] [place] [address] PCP - General Family Medicine 12/09/19 Human Resource Consultant Relationship Specialty Start Date End Date Janice Lane MD [address] [place] [address] PCP - General Family Medicine 12/09/19 Team Status: Inactive Member Role Status Dates Janice Lane MD Primary Care Provider Active Start: February 24, 2024 End: February 24, 2024 Clarke Hu Attending Provider Active Start: 2023 End: February 24, 2024 Human Resource Consultant Relationship Specialty Start Date End Date Janice Lane MD [address] [place] [address] PCP - General Family Medicine 12/09/19 Team Status: Inactive Member Role Status Dates Janice Lane MD Primary Care Provider Active Start: March 17, 2024 End: March 17, 2024 Clarke Hu Attending Provider Active Start: Negro campbell 2023 End: March 17, 2024 Human Resource Consultant Relationship Specialty Start Date End Date Janice Lane MD [address] [place] [address] PCP - General Family Medicine 12/09/19 Human Resource Consultant Relationship Specialty Start Date End Date Janice Lane MD [address] [place] [address] PCP - General Family Medicine 12/09/19 Human Resource Consultant Relationship Specialty Start Date End Date Janice Lane MD [address] [place] [address] PCP - General Family Medicine 12/09/19 Human Resource Consultant Relationship Specialty Start Date End Date Janice Lane MD [address] [facility] [place] [address] PCP - General Family Medicine 12/09/19 [facility] Human Resource Consultant Relationship Specialty Start Date End Date Janice Lane MD [address] [place] [address] PCP - General Family Medicine 12/09/19 [facility] Human Resource Consultant Relationship Specialty Start Date End Date Janice Laen MD [address] [facility] [place] [address] PCP - General Family Medicine 12/09/19 [facility] Human Resource Consultant Relationship Specialty Start Date End Date Janice Lane MD [address] [facility] [place] [address] PCP - General Family Medicine 12/09/19 [facility] Human Resource Consultant Relationship Specialty Start Date End Date Janice Lane MD [address] [facility] [place] [address] PCP - General Family Medicine 12/09/19 Marcin Ervin, [facility] 05/30/24 Human Resource Consultant Relationship Specialty Start Date End Date Janice Lane MD [address] [facility] [place] [address] PCP - General Family Medicine 12/09/19 [facility]24 Human Resource Consultant Relationship Specialty Start Date End Date Janice Lane MD [address] [place] [address] PCP - General Family Medicine 12/09/19 Human Resource Consultant Relationship Specialty Start Date End Date Janice Lane MD [address] [place] [address] PCP - General Family Medicine 12/09/19 [facility] Human Resource Consultant Relationship Specialty Start Date End Date Janice Lane MD [address] [place] [address] PCP - General Family Medicine 12/09/19 Human Resource Consultant Relationship Specialty Start Date End Date Janice Lane MD [address] [place] [address] PCP - General Family Medicine 12/09/19 Human Resource Consultant Relationship Specialty Start Date End Date Janice Lane MD [address] [place] [address] PCP - General Family Medicine 12/09/19 Human Resource Consultant Relationship Specialty [place] [address] [place] [address] PCP - General Pediatrics 10/26/23 Human Resource Consultant Relationship Specialty Start Date End Date Janice Lane MD [address] [place] [address] PCP - General Family Medicine 12/09/19 [facility] Human Resource Consultant Relationship Specialty [place] [address] [place] [address] PCP - General 12/13/19 Nataly Tripathi, STRAP CUTTING MACHINE OPERATOR-FIREPOT OPERATOR AND TENDER [address] [place] [address] [employer] [facility] 06/16/24 Human Resource Consultant Relationship Specialty [place] [address] [place] [address] PCP - General 12/13/19 Nataly Tripathi, STRAP CUTTING MACHINE OPERATOR-FIREPOT OPERATOR AND TENDER [address] [place] [address] [employer] [facility] 06/16/24 Human Resource Consultant Relationship Specialty Start Date End Date Janice Lane MD [address] [place] [address] PCP - General Family Medicine 12/09/19 [facility] 05[facility] Human Resource Consultant Relationship Specialty Start [place] [address] [place] [address] PCP - General Pediatrics 10/26/23 Human Resource Consultant Relationship Specialty Start Date End Date Janice Lane MD [address] [place] [address] PCP - General Family Medicine 12/09/19 [facility] 05/30/24 Human Resource Consultant Relationship Specialty Start Date End Date Janice Lane MD [address] [place] [address] PCP - General Family Medicine 12/09/[address] [facility] 05/30/24 Human Resource Consultant Relationship Specialty [place] [address] [place] [address] PCP - General Pediatrics 10/26/23 Human Resource Consultant Relationship Specialty [place] [address] [place] [address] PCP - General 12/13/19 Nataly Tripathi, STRAP CUTTING MACHINE OPERATOR-FIREPOT OPERATOR AND TENDER [address] [place] [address] [employer] [facility] 06/16/24 Human Resource Consultant Relationship Specialty [place] [address] [place] [address] PCP - General Pediatrics 10/26/23 Human Resource Consultant Relationship Specialty [place] [address] [place] [address] PCP - General Pediatrics 10/26/23 Human Resource Consultant Relationship Specialty [place] [address] [place] [address] PCP - General Pediatrics 10/26/23 Human Resource Consultant Relationship Specialty [place] [address] [place] [address] PCP - General Pediatrics 10/26/23 Human Resource Consultant Relationship Specialty [place] [address] [place] [address] PCP - General 12/13/19 Nataly Tripathi, STRAP CUTTING MACHINE OPERATOR-FIREPOT OPERATOR AND TENDER [address] [place] [address] [employer] [facility] 06/16/24 Human Resource Consultant Relationship Specialty [place] [address] [place] [address] PCP - General 12/13/19 Nataly Tripathi, STRAP CUTTING MACHINE OPERATOR-FIREPOT OPERATOR AND TENDER [address] [place] [address] [employer] [facility] 06/16/24 Human Resource Consultant Relationship Specialty [place] [address] [place] [address] PCP - General 12/13/19 Nataly Tripathi, STRAP CUTTING MACHINE OPERATOR-FIREPOT OPERATOR AND TENDER [address] [place] [address] [employer] [facility] 06/16/24 Human Resource Consultant Relationship Specialty Start Date End Date Janice Lane MD [address] [place] [address] PCP - General Family Medicine 12/09/[address] [facility] 05/30/24 Goals (unrecognized section and [...] BE BASED ON THE PRIMARY CLINICAL RECORDS. [facility], [facility]. provides no warranty or guarantee of the accuracy or completeness of information in this document.
[2024-10-14] MEDS: 0.9 % SODIUM CHLORIDE 1,000 ML 125 ML IV ×2 (01:42→09:47)
[2024-10-14 01:43] LABS: Hematocrit 38.2 % (36.0-48.0); Hemoglobin 12.4 g/dL (12.0-16.0); Mean Corpuscular HGB Conc 32.5 g/dL (29.9-35.2); Mean Platelet Volume 13.2 fL (9.5-13.5); Platelet Count 159 10^3/uL (150-450); Red Cell Distribution Width 13.9 % (11.0-15.0)
[2024-10-14] MEDS: OXYTOCIN/0.9 % SODIUM CHLORIDE 10 UNITS/500 ML PLAST..BAG 6 UNIT IV (01:44)
[2024-10-14 01:58] LABS: Amphetamine Screen Urine NEGATIVE (NEGATIVE); Barbiturates Screen Urine NEGATIVE (NEGATIVE); Benzodiazepines Screen Urine NEGATIVE (NEGATIVE); Buprenorphine Screen Urine NEGATIVE (NEGATIVE); Cannabinoid Screen Urine NEGATIVE (NEGATIVE); Cocaine Screen Urine NEGATIVE (NEGATIVE); Methadone Screen Urine NEGATIVE (NEGATIVE); Methamphetamines Screen Urine NEGATIVE (NEGATIVE); Opiate Screen Urine NEGATIVE (NEGATIVE); Oxycodone Screen Urine NEGATIVE (NEGATIVE); Phencyclidine Screen Urine NEGATIVE (NEGATIVE); Tricyclic Antidepressant Urine NEGATIVE (NEGATIVE)
[2024-10-14] MEDS: ZOLPIDEM TARTRATE 5 MG TABLET PO ×2 (03:21→22:46)
[2024-10-14] MEDS: OXYTOCIN/0.9 % SODIUM CHLORIDE 20 UNITS/1,000 ML PLAST..BAG 125 UNIT IV (12:32)
--- NOTE | 2024-10-14 12:35 | PM.OBPRCVD ---
Procedure Intrapartal events: None Induction method: per pitocin protocol Delivery augmentation: rupture of membranes and pitocin Delivery monitor: external FHT and external uterine Route of delivery: Episiotomy Description: none L&D Laceration Description: none Estimated blood loss (mL): 200 Anesthesia type: Pt is open to an epidural Disposition: floor Infant Delivery date: 10/14/24 Gender: male presentation: vertex Placental delivery description: Spontaneous cord description: 3 Vessels
[2024-10-14] MEDS: BENZOCAINE/MENTHOL 85 GRAM SPRAY BOTTLE 1 APPLIC TOPICAL (14:54)
[2024-10-14] MEDS: GLYCERIN/WITCH HAZEL PADS 1 PAD TOPICAL (14:54)
[2024-10-14] MEDS: ACETAMINOPHEN 325 MG TABLET 650 MG PO (14:55)
[2024-10-14] MEDS: IBUPROFEN 600 MG TABLET PO ×2 (14:55→21:57)
--- NOTE | 2024-10-14 19:45 | PC.NURSE ---
Sm clots x2 noted. Lochia scant-small.
--- NOTE | 2024-10-14 19:53 | W.PC.ACHO ---
Registration Status: ADM IN Primary Language: Preferred Language: Kazakh Report given to Brandon PILLAI. Care relinquished at 1905. Active Medications Generic Name Dose Route Start Last Admin Trade Name Sky PRN Reason Stop Dose Admin Acetaminophen 650 mg 10/14/24 13:41 10/14/24 14:55 Acetaminophen 325 Mg Tablet PO 650 mg Q6H PRN Administration Mild Pain Al Hydroxide/Mg Hydroxide 2,400 mg 10/14/24 13:41 Magnesium Hydroxide 2,400 Mg/10 Ml Oral.Susp PO Q6H PRN Dyspepsia Benzocaine/Menthol 1 applic 10/14/24 13:41 10/14/24 14:54 Benzocaine/Menthol 85 Gram [place] Bottle TOPICAL 1 applic Q2H PRN Administration Pain Carboprost Tromethamine 250 mcg 10/14/24 00:27 Carboprost Tromethamine 250 Mcg/Ml 1 Ml Vial IM 10/16/24 00:27 Q15M PRN Bleeding Diphenhydramine HCl 25 mg 10/14/24 00:37 Diphenhydramine Hcl 50 Mg/Ml Vial IV 10/15/24 00:40 Q6H PRN Itching Diphenhydramine HCl 25 mg 10/14/24 02:47 Diphenhydramine Hcl 25 Mg Capsule PO HS PRN Sleep Diphtheria/Pertussis/Tetanus Vacc 0.5 ml 10/16/24 09:00 Adacel Diph,Pertuss(Acell),Tet Vac/Pf 0.5 Ml Adult Syringe IM 10/16/24 09:01 .ONCE ONE Docusate Sodium 100 mg 10/15/24 09:00 Docusate Sodium 100 Mg Capsule PO BID ANDREY Ephedrine Sulfate 5 mg 10/14/24 00:37 Ephedrine Sulfate 50 Mg/Ml Vial IV 10/15/24 00:40 Q5M PRN Blood Pressure - Low Fentanyl Citrate 100 mcg 10/14/24 00:37 Fentanyl Citrate/Pf 100 Mcg/2 Ml Vial EPIDURAL ONCE PRN epidural Fentanyl Citrate 100 mcg 10/14/24 00:37 Fentanyl Citrate/Pf 100 Mcg/2 Ml Vial EPIDURAL ONCE PRN epidural Tranexamic Acid 1,000 mg/ 110 mls @ 440 mls/hr 10/14/24 00:27 Sodium Chloride IV 10/16/24 00:27 ONCE PRN Uterine Bleeding Sodium Chloride 1,000 mls @ 125 mls/hr 10/14/24 00:30 10/14/24 12:32 Sodium Chloride 0.9% 1,000 Ml IV 0 mls/hr .Q8H ANDREY Infusion Oxytocin/Sodium Chloride 10 units in 500 mls @ 6 mls/hr 10/14/24 00:30 10/14/24 12:32 Pitocin 10 Unit/500 Ml-Ns IV 0 milliunit/min TITR ANDREY 0 mls/hr Infusion Protocol 2 MILLIUNIT/MIN Ropivacaine/Sodium Chloride 400 mg in 200 mls @ 6 mls/hr 10/14/24 00:45 Naropin 0.2% 400 Mg/200 Ml Bag EPIDURAL Q24H ANDREY Ibuprofen 600 mg 10/14/24 13:41 10/14/24 14:55 Ibuprofen 600 Mg Tablet PO 600 mg Q6H PRN Administration Moderate Pain Lidocaine 5 ml 10/14/24 00:27 Lidocaine Viscous 2% 15 Ml Solution TOPICAL 10/16/24 00:30 ONCE PRN Pain Lidocaine 1 ml 10/14/24 00:27 Lidocaine Hcl 1% 200 Mg/20 Ml Mdv INJ 10/16/24 00:30 ONCE PRN Pain Lidocaine 5 ml 10/14/24 00:37 Lidocaine Hcl 2% Pf 100 Mg/5 Ml Vial INJ 10/15/24 00:40 Q1H PRN epidural Measles/Mumps/Rubella Vaccine Live 0.5 ml 10/16/24 09:00 Measles,Mumps,Rubella Vacc/Pf 0.5 Ml Vial SQ 10/16/24 09:01 .ONCE ONE Methylergonovine Maleate 0.2 mg 10/14/24 00:27 Methylergonovine Maleate 0.2 Mg/Ml Ampule IM 10/16/24 00:27 ONCE PRN Uterine Contractility/Contract Methylergonovine Maleate 0.2 mg 10/14/24 00:27 Methylergonovine Maleate 0.2 Mg Tablet PO 10/16/24 00:27 Q4H PRN Uterine Contractility/Contract Misoprostol 600 mcg 10/14/24 00:27 Misoprostol 100 Mcg Tablet PO 10/16/24 00:27 ONCE PRN Uterine Bleeding Misoprostol 800 mcg 10/14/24 00:27 Misoprostol 100 Mcg Tablet SL 10/16/24 00:27 ONCE PRN Uterine Bleeding Misoprostol 1,000 mcg 10/14/24 00:27 Misoprostol 100 Mcg Tablet TX 10/16/24 00:27 ONCE PRN Uterine Bleeding Nalbuphine HCl 10 mg 10/14/24 00:27 Nalbuphine Hcl 10 Mg/Ml Ampule IV Q3H PRN Pain Naloxone HCl 0.4 mg 10/14/24 00:37 Naloxone Hcl 0.4 Mg/Ml Vial IV 10/15/24 00:40 ONCE PRN respiratory depression Ondansetron HCl 4 mg 10/14/24 00:27 Ondansetron Pf 4 Mg/2 Ml Vial IV Q6H PRN Nausea And Vomiting Ondansetron HCl 4 mg 10/14/24 00:27 Ondansetron 4 Mg Rapdis Tablet SL Q6H PRN Nausea And Vomiting Oxytocin 10 unit 10/14/24 00:27 Oxytocin 10 Unit/Ml Vial IM 10/16/24 00:27 ONCE PRN bleeding Senna 17.2 mg 10/14/24 20:00 Sennosides 8.6 Mg Tablet PO QHS PRN Constipation Simethicone 80 mg 10/14/24 13:41 Simethicone 80 Mg Tab.Chew PO QID PRN Abdominal Distention Valacyclovir HCl 500 mg 10/14/24 21:00 Valacyclovir Hcl 500 Mg Tablet PO BID ANDREY Witch Daria/Glycerin 1 pad 10/14/24 13:41 10/14/24 14:54 Glycerin/Witch [place] Pads TOPICAL 1 pad Q2H PRN Administration Pain Zolpidem Tartrate 5 mg 10/14/24 02:47 10/14/24 03:21 Zolpidem Tartrate 5 Mg Tablet PO 5 mg ONCE PRN Administration sleep Diet Category Date Time Status Regular Consistency Diet Diet 10/14/24 13:35 Active Consults Category Date Time Status Consult to Anesthesiology Routine Cons 10/14/24 Ordered IV Insertion/Site Date of IV Line Insertion [18g 10/14/24 left Wrist] IV Insertion Time [18g left 01:00 Wrist] Neurology Patient orientation (short person,place,time,situation list) Respiratory Oxygen Delivery Method Room Air Oxygen Delivery Method Room Air Oxygen Delivery Method Room Air Oxygen Delivery Method Room Air Oxygen Delivery Method Room Air Cardiology Heart Sounds Regular Heart Sounds Regular Bowels Date of Last Bowel Movement 10/14/24 Date of Last Bowel Movement 10/14/24 Renal Bladder Pattern Continent Bladder Pattern Continent Bladder Pattern Continent
[2024-10-14] MEDS: VALACYCLOVIR HCL 500 MG TABLET PO (21:58)
[2024-10-15] MEDS: IBUPROFEN 600 MG TABLET PO ×3 (06:11→21:59)
[2024-10-15 07:03] LABS: Basophils Percent Auto 0.4 % (0.2-2.0); Eosinophils Absolute Auto 0.1 10^3/uL (0.0-0.7); Eosinophils Percent Auto 0.8 % (0.9-7.0); Hematocrit 33.3 % (36.0-48.0); Hemoglobin 10.8 g/dL (12.0-16.0); Immature Granulocytes Abs Auto 0.11 10^3/uL (0.00-0.03); Lymphocytes Absolute Auto 1.8 10^3/uL (1.2-3.8); Lymphocytes Percent Auto 16.4 % (20.5-60.0); Mean Corpuscular HGB Conc 32.4 g/dL (29.9-35.2); Mean Corpuscular Hemoglobin 27.1 pg (26.7-34.0); Mean Corpuscular Volume 83.7 fL (81.0-99.0); Mean Platelet Volume 12.9 fL (9.5-13.5); Monocytes Absolute Auto 0.9 10^3/uL (0.3-0.8); Monocytes Percent Auto 8.3 % (1.7-12.0); Neutrophils Absolute Auto 7.9 10^3/uL (1.4-6.5); Neutrophils Percent Auto 73.1 % (43.0-75.0); Platelet Count 151 10^3/uL (150-450); Red Blood Count 3.98 10^6/uL (4.20-5.40); Red Cell Distribution Width 14.2 % (11.0-15.0); White Blood Count 10.9 10^3/uL (4.0-11.0)
[2024-10-15 08:34] VITALS: BP 102/69; PULSE 89
[2024-10-15 08:37] VITALS: TEMP 36.7
--- NOTE | 2024-10-15 09:27 | PM.OBPN ---
OB - PN: Subj Subjective Patient comments: no complaints and pain well controlled [place] status: doing well Exam Constitutional Vital Signs, click to edit/add: Last Vital Signs Temp 98.0 F 10/15/24 08:37 Pulse 89 10/15/24 08:34 Resp 16 10/15/24 08:54 BP 102/69 10/15/24 08:34 O2 Del Method Room Air 10/15/24 08:54 Documenting provider has reviewed patient's vital signs: yes Common normals: no apparent distress Respiratory Common normals: clear to auscultation bilaterally Cardio Common normals: regular rate and regular rhythm GI Common normals: Normal to inspection, nondistended, normoactive bowel sounds present Extremity Common normals: no clubbing, cyanosis or edema and no calf tenderness Results Labs Labs: Short CBC 10/15/24 Range/Units 06:35 WBC 10.9 (4.0-11.0) 10^3/uL Hgb 10.8 L (12.0-16.0) g/dL Hct 33.3 L (36.0-48.0) % Plt Count 151 (150-450) 10^3/uL OB - PN: A/P Plan - Vaginal Delivery day: 1 Plan: routine care Time Spent with Patient Time: Total time spent is greater than 50% in coordination of care (as documented) at patient's floor/unit and/or counseling patient: Total time spent with greater than 50% in coordination of care (as documented) at patient's floor/unit and/or counseling patient: less than 15 minutes
[2024-10-15 15:30] VITALS: TEMP 36.6
[2024-10-15 15:33] VITALS: BP 112/68; PULSE 91
[2024-10-15] MEDS: DOCUSATE SODIUM 100 MG CAPSULE PO (21:59)
[2024-10-15] MEDS: ZOLPIDEM TARTRATE 5 MG TABLET PO (21:59)
[2024-10-15] MEDS: VALACYCLOVIR HCL 500 MG TABLET PO (21:59)
[2024-10-15 23:10] VITALS: BP 111/65; PULSE 86; TEMP 36.6
--- NOTE | 2024-10-16 07:28 | W.PC.ACHO ---
Registration Status: ADM IN Primary Language: Preferred Language: Arabic Report received from Vikki PILLAI. This RN assumes care at 0715. Active Medications Generic Name Dose Route Start Last Admin Trade Name Sky PRN Reason Stop Dose Admin Acetaminophen 650 mg 10/14/24 13:41 10/14/24 14:55 Acetaminophen 325 Mg Tablet PO 650 mg Q6H PRN Administration Mild Pain Al Hydroxide/Mg Hydroxide 2,400 mg 10/14/24 13:41 Magnesium Hydroxide 2,400 Mg/10 Ml Oral.Susp PO Q6H PRN Dyspepsia Benzocaine/Menthol 1 applic 10/14/24 13:41 10/14/24 14:54 Benzocaine/Menthol 85 Gram [place] Bottle TOPICAL 1 applic Q2H PRN Administration Pain Diphenhydramine HCl 25 mg 10/14/24 02:47 Diphenhydramine Hcl 25 Mg Capsule PO HS PRN Sleep Diphtheria/Pertussis/Tetanus Vacc 0.5 ml 10/16/24 09:00 Adacel Diph,Pertuss(Acell),Tet Vac/Pf 0.5 Ml Adult Syringe IM 10/16/24 09:01 .ONCE ONE Docusate Sodium 100 mg 10/15/24 09:00 10/15/24 21:59 Docusate Sodium 100 Mg Capsule PO 100 mg BID ANDREY Administration Fentanyl Citrate 100 mcg 10/14/24 00:37 Fentanyl Citrate/Pf 100 Mcg/2 Ml Vial EPIDURAL ONCE PRN epidural Fentanyl Citrate 100 mcg 10/14/24 00:37 Fentanyl Citrate/Pf 100 Mcg/2 Ml Vial EPIDURAL ONCE PRN epidural Sodium Chloride 1,000 mls @ 125 mls/hr 10/14/24 00:30 10/14/24 12:32 Sodium Chloride 0.9% 1,000 Ml IV 0 mls/hr .Q8H ANDREY Infusion Oxytocin/Sodium Chloride 10 units in 500 mls @ 6 mls/hr 10/14/24 00:30 10/14/24 12:32 Pitocin 10 Unit/500 Ml-Ns IV 0 milliunit/min TITR ANDREY 0 mls/hr Infusion Protocol 2 MILLIUNIT/MIN Ropivacaine/Sodium Chloride 400 mg in 200 mls @ 6 mls/hr 10/14/24 00:45 Naropin 0.2% 400 Mg/200 Ml Bag EPIDURAL Q24H ANDREY Ibuprofen 600 mg 10/14/24 13:41 10/15/24 21:59 Ibuprofen 600 Mg Tablet PO 600 mg Q6H PRN Administration Moderate Pain Measles/Mumps/Rubella Vaccine Live 0.5 ml 10/16/24 09:00 Measles,Mumps,Rubella Vacc/Pf 0.5 Ml Vial SQ 10/16/24 09:01 .ONCE ONE Nalbuphine HCl 10 mg 10/14/24 00:27 Nalbuphine Hcl 10 Mg/Ml Ampule IV Q3H PRN Pain Ondansetron HCl 4 mg 10/14/24 00:27 Ondansetron Pf 4 Mg/2 Ml Vial IV Q6H PRN Nausea And Vomiting Ondansetron HCl 4 mg 10/14/24 00:27 Ondansetron 4 Mg Rapdis Tablet SL Q6H PRN Nausea And Vomiting Senna 17.2 mg 10/14/24 20:00 Sennosides 8.6 Mg Tablet PO QHS PRN Constipation Simethicone 80 mg 10/14/24 13:41 Simethicone 80 Mg Tab.Chew PO QID PRN Abdominal Distention Valacyclovir HCl 500 mg 10/14/24 21:00 10/15/24 21:59 Valacyclovir Hcl 500 Mg Tablet PO 500 mg BID ANDREY Administration [place]/Glycerin 1 pad 10/14/24 13:41 10/14/24 14:54 Glycerin/[place] Pads TOPICAL 1 pad Q2H PRN Administration Pain Zolpidem Tartrate 5 mg 10/14/24 22:07 10/15/24 21:59 Zolpidem Tartrate 5 Mg Tablet PO 5 mg HS PRN Administration Sleep Respiratory Oxygen Delivery Method Room Air Oxygen Delivery Method Room Air Oxygen Delivery Method Room Air Cardiology Heart Sounds Strong,Regular Heart Sounds Regular Bowels Bowel Pattern No Bowel Movement Bowel Pattern No Bowel Movement Date of Last Bowel Movement 10/14/24 Renal Bladder Pattern Continent Bladder Pattern Continent Bladder Pattern Continent
[2024-10-16 07:44] VITALS: BP 108/70; PULSE 108
[2024-10-16 07:45] VITALS: TEMP 36.7
[2024-10-16] MEDS: DOCUSATE SODIUM 100 MG CAPSULE PO (08:15)
--- NOTE | 2024-10-16 11:02 | PM.OBDS ---
DS: Providers Provider Date of admission: 10/14/24 00:19 Primary care physician: Non-Staff Physician, Admitting clinician: Clarke Hu Consults: 10/14/24 Consult to Anesthesiology Routine Consulting Provider: Sebastian Billingsley II Reason for consultation: epidural Attending physician on discharge: Kimberley Kelly Anticipated date of discharge: 10/16/24 DS: Diagnosis Discharge Diagnosis (1) (spontaneous vaginal delivery): Assessment and plan: vss, clinical exam non focal, is able to walk with assistance, is breast feeding, FOB not involved but has a support system, has a three year old at home, currently on disability Plan discharge home, will make an appointment to see Dr. Hu in six weeks for exam OB - DS: Summary Hospital Course Hospital Course: uncomplicated Time spent discussing smoking cessation with patient: 3 to 10 minutes Peripartum Data - Vaginal Delivery Laceration description: none Complications complications: none Infant Delivery method: spontaneous vaginal delivery Gender: male Discharge plan: home Status at Discharge Cognitive/behavioral status at discharge: wnl Functional status at discharge: uses cane/walker Time Spent with Patient Time attestation: Total time spent providing and/or coordinating discharge services: Time spent: greater than 30 minutes Exam Narrative Exam Narrative: spoke at length with patient as she told me her life story and journey with MS Constitutional Vital Signs, click to edit/add: Last Vital Signs Temp 98.1 F 10/16/24 07:45 Pulse 108 H 10/16/24 07:44 Resp 16 10/16/24 07:45 BP 108/70 10/16/24 07:44 O2 Del Method Room Air 10/16/24 07:45 Common normals: no apparent distress, average body habitus, oriented x3, no limitations (can walk but needs walker or cane, refuses wheelchair), alert and well nourished General appearance: cooperative, comfortable, well kempt and well developed Orientation/consciousness: Yes awake, Yes oriented to person, Yes oriented to place and Yes oriented to time HENMT Common normals: normocephalic and head/scalp atraumatic Eye Pupil: PERRL and accommodation reflex normal Neck & C-Spine Common normals: full ROM and supple Chest Common normals: inspection of chest normal Respiratory Common normals: normal respiratory effort and no retractions Auscultation: clear to auscultation bilaterally Cardio Common normals: regular rate and regular rhythm GI Common normals: Normal to inspection, nondistended, normoactive bowel sounds present and soft to palpation Common normals: no CVA tenderness Back & Pelvis Common normals: no thoracic nor lumbar tenderness Extremity Common normals: normal to inspection and full ROM Neuro Hannah Coma Scale: other (patient has MS for more than 20 years) Common normals: oriented x3 and moves all extremities (has to assist movement of legs with hands if lifting, has numbness in hands) Sensorium/orientation: awake, alert, oriented to person, oriented to place and oriented to time Cranial nerves: CN II (optic) (sight affected by MS, not blind, but there are limitations) Motor exam: other (strength affected and movement affected by MS) Psych Common normals: mental status grossly normal, thought process normal, cooperative and speech normal Appearance: well kempt Attitude: calm and engaged Activity/motor behavior: appropriate eye contact Speech: normal speech Mood and affect: euthymic mood Thought process: normal thought process Discharge Plan Discharge Disposition: Home, Self-Care Condition: Good Assessment: vss, no need for pain medication, able to perform ADL and care for infant and three year old, has support system and dru[employer] affiliation Health Concerns: exacerbation of MS, need to monitor Plan of Treatment: discharge home with follow up with neurologist and OB Discharge Medications: Continued M- Plus 27 mg iron- 1 mg tablet 1 tab PO Q24H valacyclovir 500 mg tablet 500 mg PO DAILY ascorbic acid (vitamin C) [Fruit C-500] 500 mg tablet,chewable 500 mg PO DAILY PRN (Reason: immune support ) diphenhydramine HCl [Unisom SleepGels] 50 mg capsule 50 mg PO QID PRN (Reason: sleep aid) glatiramer 20 mg/mL syringe 20 mg subcut .3 x weekly Rx Instructions: Pt takes every friday, friday and friday cetirizine 10 mg tablet 10 mg PO DAILY PRN (Reason: allergy symptoms) dalfampridine 10 mg tablet extended release 12 hr 10 mg PO Q12H ergocalciferol (vitamin D2) 1,250 mcg (50,000 unit) capsule 50,000 unit PO .weekly magnesium oxide 400 mg (241.3 mg magnesium) tablet 400 mg PO BEDTIME tizanidine 2 mg tablet 2 mg PO Q8H PRN (Reason: muscle spasticity) Patient Comments: on hold during Ocrevus 30 mg/mL solution 300 mg IV .every 6 months Held norethindrone (contraceptive) [Jencycla] 0.35 mg tablet 0.35 mg PO DAILY Hold Instructions: Resume on 12/05/24. hold until six week follow up with Dr. Hu Activity: ambulate only with your walker Diet: advance to your usual diet Print Language: Slovak Patient Instructions: Vaginal Delivery (DC) Activity Restrictions/Additional Instructions: no sex six weeks, have neurologist order chair for shower, limit driving for 4 weeks minimal as MS monitored, limit stair climbing due to MS, Forms: Portal Instructions Follow Up Appointments: six weeks post visit with Dr. Hu Discharge location: home
[2024-10-16] MEDS: IBUPROFEN 600 MG TABLET PO (11:49)
[2024-10-16 15:58] VITALS: BP 111/73; PULSE 95
[2024-10-16 16:00] VITALS: TEMP 36.1
--- NOTE | 2024-10-16 18:54 | PC.NURSE ---
Pt given hand pump and education on use provided.
== END 2024-10-16 17:30 | disposition home or self-care (01) | DRG 806 ==
PROVIDERS: Admitting Provider Obstetrics & Gynecology; Visit Provider Obstetrics & Gynecology
DX: O36.5930 Maternal care for other known or suspected poor fetal growth, third trimester, not applicable or unspecified (principal); O99.354 Diseases of the nervous system complicating childbirth; Z37.0 Single live birth; G35 Multiple sclerosis; Z3A.38 38 weeks gestation of pregnancy
CPT/HCPCS: 36415; 59050; 59410; 76818; 80307; 85025; 85027; 86850; 86900; 86901

== ENCOUNTER 2024-10-19 08:27 | Outpatient (OUT) | payer MEDICARE, MEDICAID, SELFPAY ==
--- NOTE | 2024-10-19 16:18 | PC.NURSE ---
Smooth and 6 day old Francis arrive for follow up appointment. Smooth states she is tired, but feels well. Has limited help or support as family lives 10 hours away and fathers of children are not really involved. States breast feeding is going well and milk is in. Baby feeds every 2-3 hours, and in evenings has been nursing every 1 hour for a few feeds. Validated that normal expected behavior from NB. VSS and assessment WNL for Smooth. Denies needs or concerns for self. States feels confident in ability to care for baby as well. Francis with VSS and assessment WNL. Mom reports 5-6 wets last 24 hours and 5-6 yellow stools last 24 hours. Infant to breast independently, deep latch and audible swallows noted. Nurses well. Requests for breast pump faxed to [employer] as has not been contacted by company. Copy given to mom to follow up as needed. Couplet doing well, leaves ambulatory aware to call as needs and aware of MOMS group.
[2024-10-19 16:19] VITALS: BP 119/79; PULSE 90; TEMP 36.6; O2SAT 97
== END 2024-10-19 16:26 | disposition home or self-care (01) ==
LOC: FBCO 08:30
PROVIDERS: Visit Provider Obstetrics & Gynecology
DX: Z39.1 Encounter for care and examination of lactating mother (principal)

== ENCOUNTER 2025-03-11 12:22 | Emergency (ER) | payer MEDICARE, MEDICAID, SELFPAY ==
[2025-03-11 12:26] VITALS: BP 108/78; PULSE 71; TEMP 37.1; O2SAT 98; BMI 22.6
--- NOTE | 2025-03-11 12:49 | ED.GENADUL1 ---
HPI HPI - General Adult General Chief complaint: Eye Problems Stated complaint: VISION ISSUE Time Seen by Provider: 03/11/25 12:36 Source: patient Mode of arrival: walk-in History of Present Illness HPI narrative: Patient is a 39-year-old female with history of MS is coming to the ER after she called to her was opening the air conditioner almost 7 days ago in her car and she feels like there is dust came out of the to her both eyes, since then she has been feeling that her eye is irritated and dry she did contact her primary care and was provided with antihistaminic eyedrop that did not help her symptoms Patient mentioned at the baseline she had a blurry vision in the right eye that mildly increased over the last few days although the blurry vision is just not continuous get better whenever she blinks The patient denies any double vision denies any headache she also have no history of trauma She did flush her eye almost 7 days ago when this happened Related Data Home Medications ?Medication ?Instructions ?Recorded ?Confirmed cetirizine 10 mg tablet 10 mg PO DAILY PRN allergy symptoms 11/14/23 10/14/24 dalfampridine 10 mg 10 mg PO Q12H 11/14/23 10/14/24 tablet,extended release,12 hr ergocalciferol (vitamin D2) 1,250 50,000 unit PO .weekly 11/14/23 10/14/24 mcg (50,000 unit) capsule magnesium oxide 400 mg (241.3 mg 400 mg PO BEDTIME 11/14/23 10/14/24 magnesium) tablet norethindrone (contraceptive) 0.35 0.35 mg PO DAILY 11/14/23 10/14/24 mg tablet (Jencycla) Held on 10/16/24. Instructions: Resume on 12/05/24. hold until six week follow up with Dr. Hu ocrelizumab 30 mg/mL intravenous 300 mg IV .every 6 months 11/14/23 10/14/24 solution (Ocrevus) tizanidine 2 mg tablet 2 mg PO Q8H PRN muscle spasticity 11/14/23 10/14/24 ascorbic acid (vitamin C) 500 mg 500 mg PO DAILY PRN immune support 10/08/24 10/14/24 chewable tablet (Fruit C-500) diphenhydramine HCl 50 mg capsule 50 mg PO QID PRN sleep aid 10/08/24 10/14/24 (Unisom SleepGels) vitamin with calcium 1 tab PO Q24H 10/08/24 10/14/24 no.72-iron 27 mg-folic acid 1 mg tablet (M-Blake Plus) valacyclovir 500 mg tablet 500 mg PO DAILY 10/08/24 10/14/24 glatiramer 20 mg/mL subcutaneous 20 mg subcut .3 x weekly multiple 10/14/24 10/14/24 syringe sclerosis Previous Rx's ?Medication ?Instructions ?Recorded carboxymethylcellulose sodium 1 % 1 drp ophthalmic (eye) TID PRN dry 03/11/25 eye drops (Artificial Tears eye(s) #15 mL (carboxymethylcellulose)) tobramycin 0.3 % eye drops 1 drp ophthalmic (eye) Q4H #5 mL 03/11/25 Allergies Allergy/AdvReac Type Severity Reaction Status Date / Time No Known Drug Allergies Allergy Verified 10/14/24 13:34 Opioid HPI Opioid Management Most Recent Opioid Data: Last Pain Scale 4 10/16/24, 11:49 Ur Phencyclidine Scrn, (NEGATIVE) Negative 10/14/24, 00:45 Review of Systems ROS Status of ROS 10 or more systems reviewed and unremarkable except as noted in history and below [facility] Medical History (Updated 03/11/25 @ 12:49 by Marilyn Bernard MD) (spontaneous vaginal delivery) ?O80 - Encounter for full-term uncomplicated delivery (ICD-10) Multiple sclerosis ?G35 - Multiple sclerosis (ICD-10) Low iron ?E61.1 - Iron deficiency (ICD-10) Hypoglycemia ?E16.2 - Hypoglycemia, unspecified (ICD-10) Hypocalcemia ?E83.51 - Hypocalcemia (ICD-10) Thickened endometrium ?R93.89 - Abnormal findings on diagnostic imaging of other specified body structures (ICD-10) Surgical History (Updated 11/14/23 @ 11:03 by Amira Mccarthy RN) H/O cervical biopsy ?Z98.890 - Other specified postprocedural states (ICD-10) H/O wisdom tooth extraction ?K08.409 - Partial loss of teeth, unspecified cause, unspecified class (ICD-10) H/O colonoscopy ?Z98.890 - Other specified postprocedural states (ICD-10) Family History (Updated 11/14/23 @ 11:06 by Amira Mccarthy RN) Other Alzheimer disease Diabetes Multiple sclerosis Prostate cancer Social History (Updated 11/14/23 @ 11:16 by Amira Mccarthy RN) Within the past year, how often did you have a drink containing alcohol: monthly or less Within the past year, how many standard drinks containing alcohol did you have on a typical day: 1 or 2 Within the past year, how often did you have six or more drinks on one occasion: less than monthly Total score: 1 Score interpretation: A score less than 3 is consistent with normal alcohol consumption. 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 General: Well-appearing and in no apparent distress. Skin: Warm, dry, no pallor noted. No rash. Head: Normocephalic, atraumatic. Neck: Supple, non-tender. Eye: Pupils are equal, round and EOMI. No scleral icterus. The patient have mild conjunctival erythema bilaterally in the lower eyelid Ears, Nose, Mouth, and Throat: TM are clear, no nasal mucosal hypertrophy. Oral mucosa is moist, no posterior oropharynx erythema, uvula is mid-line Neurological: A&O x4. No cranial nerve dysfunction observed. No truncal ataxia. Moves all extremities. Sensation intact. Psychiatric: Cooperative and interactive. Normal mood and affect. Constitutional Vital Signs, click to edit/add: Last Vital Signs Temp 98.7 F 03/11/25 12: Pulse 71 03/11/25 12:26 Resp 18 03/11/25 12:26 BP 108/78 03/11/25 12:26 Pulse Ox 98 03/11/25 12:26 O2 Del Method Room Air 03/11/25 12:26 Course Vital Signs Vital signs: Vital Signs Temperature 98.7 F 03/11/25 12:26 Pulse Rate 71 03/11/25 12:26 Respiratory Rate 18 03/11/25 12:26 Blood Pressure 108/78 03/11/25 12:26 Pulse Oximetry 98 03/11/25 12:26 Oxygen Delivery Method Room Air 03/11/25 12:26 Temperature 98.7 F 03/11/25 12:26 Pulse Rate 71 03/11/25 12:26 Respiratory Rate 18 03/11/25 12:26 Blood Pressure 108/78 03/11/25 12:26 Pulse Oximetry 98 03/11/25 12:26 Oxygen Delivery Method Room Air 03/11/25 12:26 Medical Decision Making MDM Narrative Medical decision making narrative: Other than the mild conjunctival erythema on both lower eyelids the patient presentation could be secondary to dry eye specially that she mentioned that when she is driving in the air conditioner is in her face that exacerbates her symptoms The patient was started on tobramycin eyedrop to cover for possible abrasion or conjunctivitis and she also was started on artificial tears referred to the nurse liaison outpatient to follow-up with them within 2 to 3 days Patient was instructed to come back in case of any worsening of her symptoms The patient is to follow up with primary care physician in next 2-3 days or to return to the emergency department should any of the signs or symptoms worsen or new symptoms develop. The patient agrees with the following Diagnosis and Treatment plan and the patient will be discharged home. Discharge Plan Discharge Chief Complaint: Eye Problems Clinical Impression: Conjunctivitis Patient Disposition: Home, Self-Care Time of Disposition Decision: 12:49 Condition: Good Mode of Transportation: Private Vehicle Prescriptions / Home Meds: New tobramycin 0.3 % drops 1 drp ophthalmic (eye) Q4H Qty: 5 0RF Rx Instructions: FOR BOTH EYES Artificial Tears (cmc) 1 % drops 1 drp ophthalmic (eye) TID PRN (Reason: dry eye(s)) Qty: 15 0RF Rx Instructions: BILATERAL No Action M- Plus 27 mg iron- 1 mg tablet 1 tab PO Q24H valacyclovir 500 mg tablet 500 mg PO DAILY ascorbic acid (vitamin C) [Fruit C-500] 500 mg tablet,chewable 500 mg PO DAILY PRN (Reason: immune support ) diphenhydramine HCl [Unisom SleepGels] 50 mg capsule 50 mg PO QID PRN (Reason: sleep aid) glatiramer 20 mg/mL syringe 20 mg subcut .3 x weekly Rx Instructions: Pt takes every friday, friday and friday cetirizine 10 mg tablet 10 mg PO DAILY PRN (Reason: allergy symptoms) dalfampridine 10 mg tablet extended release 12 hr 10 mg PO Q12H ergocalciferol (vitamin D2) 1,250 mcg (50,000 unit) capsule 50,000 unit PO .weekly magnesium oxide 400 mg (241.3 mg magnesium) tablet 400 mg PO BEDTIME norethindrone (contraceptive) [Jencycla] 0.35 mg tablet 0.35 mg PO DAILY tizanidine 2 mg tablet 2 mg PO Q8H PRN (Reason: muscle spasticity) Patient Comments: on hold during Ocrevus 30 mg/mL solution 300 mg IV .every 6 months Print Language: Luxembourgish Instructions: Conjunctivitis (ED) Referrals: Simón Powell MD [Physician, Opthalmology] - As soon as possible Referral Note: [facility], [address], Physician,Non-Staff, [Primary Care Provider] - 1 week Discharge Date/Time: 03/11/25 13:04
== END 2025-03-11 13:04 | disposition home or self-care (01) ==
PROVIDERS: Emergency Provider Emergency Medicine
DX: H10.9 Unspecified conjunctivitis (principal); G35 Multiple sclerosis
CPT/HCPCS: 99283

== ENCOUNTER 2025-04-11 15:05 | Outpatient (REF) | payer MEDICARE, MEDICAID, SELFPAY ==
--- OUTSIDE RECORDS SUMMARY | 2018-11-24 09:10 | XMS_ITS | Continuity of Care Document ---
Author Organization [facility] Address [address] [place] [address] Phone Care Team Providers Care Roaster Supervisor Name Role Phone Nolvia Palomino PA-C Unavailable Unavailable Allergies, Adverse Reactions, Alerts Substance Reaction Status Criticality No Known Allergies Active No Inform ation Medications Medication Instructions Dosage Effective Dates (start - stop) Status Comments Benadryl 25 mg capsule take 2 capsule by oral route every 4 - 6 hours as needed 50 MG - Active Procedures Procedure Date Office/outpatient visit,[facility] 2018 Kenalog 10mg injection Injection Tendon Sheath/ligament Aponeur osis (Plantar Fascia) Single Finger(s) Xray Min 2 Views Office/outpatient visit,[facility] 2017 Advance Directives Directive Yes / No Effective Date File Name No Information Encounters Encounter Description Practice Location Reason(s) For Visit Diagnoses Date Provider Providers Copied on Encounter Office/outpat ient visit,[facility], [address] [place] [address], [id number], tel:[phone] Angela Office ANSON hand (chief complaint) Trigger finger, right index fingerPain in right finger(s) 9 Candelario De Souza. [address] [place] [address], [id number] , . tel:[phone] Office/outpat ient visit,[facility], [address] [place] [address], [id number], tel:[phone] [facility] hand (chief complaint) Pain in right finger(s)Pain in left kneeTrigger index finger of right hand 8 Kilo Funez. [address] [place], [place], [id number] , . tel:[phone] Referring Provider: Armin Boateng, [address] [place], [address] . tel:[phone] Family History Family Member Type Diagnosis Age At Onset No Information Payers Payer name Insurance type Covered constitution party ID Authoriza tion(s) [place] MB [id number] [facility] [id number] Social History Type Description Quantity Date Captured Comments Alcohol Use Details Unknown Caffeine Use Details Unknown Tobacco Use Status Current non-smoker 19 Smoking Status Never smoker Non-Smoking Tobacco Use Details : No Details Available : No Details Available Sex Female Vital Signs Date / Time: Height Weight BMI Pulse Rate Blood Pressure Temperature Respiratory Rate Body Surface Area Head Circumference Head Circ. Percentile Wt./Gautam. Percentile BMI percentile Pulse Ox Inhaled Ox 1:31 PM 66.00 in 71.214 kg (157.00 lbs) 25.3 4 kg/m eter (2) 118/84 mm[Hg] 1.82 meter(2) Chief Complaint And Reason For Visit From encounter dated '11/24/2018 13:10'. hand (chief complaint) Reason For Referral Reason For Referral No Information Plan Of Treatment Date Type Action Status Referral Ordered: Shell Quezada MD -[facility]opathic [facility]opathic Physicians : Family Medicine (related to Trigger finger, right index finger) ordered Referral Referred To: Shell Quezada MD [address], [place], [id number] Ordered: Referrals: [facility]opathic [facility] Osteopathic Physicians : Family Medicine. Shell Quezada MD. Assume care ordered Future Order: Radiology Order Kn ee Xray 1 Or 2 Views ([id number]), Ordered on: Ordered Future Order: Radiology Order Kn ee Xray Both Knees Standing AP ([id number]), Ordered on: Ordered Future Order: Radiology Order Fi nger(s) Xray Min 2 Views ([id number]), Ordered on: Ordered History Of Present Illness Encounter Date Complaint History Of Prese nt Illness hand hand Functional Status Date Functional Assessmen t No Information Instructions Date Instruction Additional Infor mation No Information Assessments Type Assessment Date assessment Trigger finger, right index fing er assessment Pain in right finger(s) 019 Patient Care Teams Name Effective Dates (start - stop) Status Members No Information
--- OUTSIDE RECORDS SUMMARY | 2023-11-20 12:30 | XMS_ITS | Continuity of Care Document ---
Author Organization [facility] Address [address] [place] [address] Phone Care Team Providers Care Group Controller Name Role Phone Khari Hall Unavailable Unavailable Medications Medication Instructions Dosage Effective Dates (start - stop) Status Comments Copaxone 40 mg/mL subcutaneous syringe inject 1 milliliter by subcutaneous route 3 times every week (same 3 days/wk) in abdomen, thigh, buttocks, or upper arm (rotate site) 40 MG - Active Vitamin C 500 mg capsule,extended release - Active 28 mg iron-800 mcg tablet - Active Flonase Allergy Relief 50 mcg/actuation nasal spray,suspension spray 1 - 2 spray by intranasal route every day in each nostril as needed 50-100 MCG - Active Procedures Procedure Date Admin influenza virus vac FLU VAC NO PRSV 4 LEONELA 3 YRS+ Nutrit Couns For Control Of [place] Dis Oct Comp Oral Eval New/estab Patient 2019 CAPILLARY BLOOD DRAW Advance Directives Directive Yes / No Effective Date File Name No Information Encounters Encounter Description Practice Location Reason(s) For Visit Diagnoses Date Provider Providers Copied on Encounter [facility], [address] [place] [address], [id number], [place] tel:[phone] [facility] No Information Jesse Blackwell. [address] [place], [place], [id number], [place]. tel:[phone] [facility], [address] [place] [address], [id number], [place] tel:[phone] Dental Clinic D. L (chief complaint) Encounter for screening for dental disorders Ryan Hillmanry. [address] [place], [place], [id number], [place]. tel:[phone] [facility], [address] [place], [place], [id number], [place] tel:[phone] [facility] Encounter for screening for disorder due to exposure to contaminant Jesse BENZ Khari. [address] [place], [place], [id number], [place]. tel:[phone] Family History Family Member Type Diagnosis Age At Onset Father Problem prostate cancer Mother Problem Alive and well Father Problem Alive and well Immunizations Vaccine Date Status Comments Flulaval/ Fluarix administered Source: Ne w Immunization Record Payers Payer name Insurance type Covered democrat ID Authoriza tion(s) [employer] H[employer] PPS MB [id number] [employer] PPS MB [id number] Social History Type Description Quantity Date Captured Comments Alcohol Use Details Unknown Caffeine Use Details Unknown Tobacco Use Status No Information Smoking Status No Information Sex Female Sexual Orientation Straight or heterosexual Gender Identity Female Chief Complaint And Reason For Visit No Information Reason For Referral Reason For Referral No Information Plan Of Treatment Date Type Action Status Goal PRAPARE ASSESSMENT. Due on due Goal Hepatitis C screening. Due o n due Goal Influenza vaccine. Due on due Goal Unhealthy drug use screening . Due on due Goal Tdap. Due on due Goal RLP. Due on due Goal HPV. Due on due Goal Tdap Vaccine. Due on 2023 due Goal Depression screening. Due on due History Of Present Illness Encounter Date Complaint History Of Prese nt Illness Dec-16-2020 D. L D. L. Functional Status Date Functional Assessmen t No Information Instructions Date Instruction Additional Infor mation No Information Assessments Type Assessment Date No Information Patient Care Teams Name Effective Dates (start - stop) Status Members No Information
--- OUTSIDE RECORDS SUMMARY | 2024-12-24 10:00 | XMS_ITS ---
Author Organization [facility] Address [address] [place] [address] Care Team Providers Care Prosthetic Assistant Name Role Phone Melina Lowe Primary Care Provider [phone] Romelia Devries [phone] REASON FOR VISIT REFERRAL Encounters Encounter Location Date Provider Diagnosis [facility] [address] [place] [address] 12/24/2024 Romelia Yuan Plan Of Treatment Next Appt Details Provider Name:Guillermo Tyson er, 04/14/2025 03:00:00 PM, [address] [place] [address], [facility] [place], [address], Progress Notes * STERLING ROMANOB: 5 (39 yo F)Acc No.[id number]:12/24/2024 Consult - Patient Patient: CAROL ANN MAYORGA Provider: DEZ Boss :1985 A ge:39 Y S ex:Female Date:12/24/2024 Address:[address] [place], [place] [id number] Pcp:Melina Lowe Subjective: * Chief Complaints: * 1 . REFERRAL. Objective: Therapeutic Interventions: Assessment: Plan: * Images: Care Plan Details* * Electronic signature of DEZ Mejía on 04/11/2025 at 01:00 PM EDT Sign off status: Pending * Provider: DEZ Boss Date: 12/24/2024 Generated for Kesha galdamez/Darren/eTransmitting on: 0 04/11/2025 01:00 PM EDT
--- OUTSIDE RECORDS SUMMARY | 2025-03-28 11:45 | XMS_ITS ---
Author Organization [facility] es Address [address] [place] [address] Care Team Providers Care Angular Js Developer Name Role Phone Melina Lowe Primary Care Provider Guillermo Collins [phone] Encounters Encounter Location Date Provider Diagnosis [address] [place] [address] 03/28/2025 Guillermo Collins Plan Of Treatment Next Appt Details Provider Name:Guillermo Tyson er, 04/14/2025 03:00:00 PM, [address] [place] [address] [place], [address], Progress Notes * STERLING ROMANHDOB: 5 (39 yo F)Acc No.[id number]:03/28/2025 Patient: CAROL ANN MAYORGA Provider: Olivia COLLINS RD :1985 A ge:39 Y S ex:Female Date:03/28/2025 Address:[address] [place], [place] [id number] Pcp:Melina Lowe Subjective: * Chief Complaints: * * Medical History: Objective: * Vitals: Assessment: Plan: * Treatment: * Images: * Electronic signature of Felipa Collins RD on 04/11/2025 at 01:00 PM EDT Sign off status: Pending * Provider: Olivia COLLINS RD Date: 03/28/2025 Generated for Printi ng/Faxing/eTransmitting on: 04/11/2025 01:00 PM EDT
--- OUTSIDE RECORDS SUMMARY | 2025-04-01 09:00 | XMS_ITS | Encounter Summary ---
Author Organization [facility] Address [facility] [place] [address] Care Team Providers Care Automotive Service Writer Name Role Phone Rashard Lane MD Primary Care Provider [phone] Juan Miguel Caballero [facility] Unavailable Unavailable Olimpia Turpin BOOMBOAT OPERATOR.[facility] Unavailable [phone] Source Comments In the event this information is protected by the Federal Confidentiality of Alcohol and Drug AbusePatient Records regulations: The Federal rules restrict any use of the information to criminally investigate or prosecute any alcohol or drug abuse patient.[facility] Reason for Visit * [place] Prior Authorization (Routine) - Authorized Specialty Diagnoses / Procedures Referred By Contac t Referred To Contact Diagnoses Multiple sclerosis (HCC) Procedures INJECTION, OCRELIZUMAB, 1 MG Anya Cast APRN.HORTICULTURE SUPERVISOR [address] [place] [address] Phone: tel: fax: Anya Cast APRN.HORTICULTURE SUPERVISOR [address] [place] [address] Phone: tel: fax: Referral ID Status Reason Start Date Expiration Date V isits Requested Visits Authorized [id number] Authorized 02/03/2025 02/04/2026 3 3 Encounter Details Date Type Department Care Team (Latest Contact Info) Description 04/01/2025 9:00 AM EDT [facility] Hematology/Oncology [address] [place] [address] Multiple sclerosis (HCC) (Primary Dx) Social History Tobacco Use Types Packs/Day Years Used Date Smoking Tobacco: Never Passive Smoke Exposure: Past Smokeless Tobacco: Never Alcohol Use Standard Drinks/Week Comments Not Currently 0 (1 standard drink = 0.6 oz pur e alcohol) occas Social Connection and Isolat ion Panel [NHANES] Answer Date Recorded In a typical week, how many times do you talk on the phone with family, friends, or neighbors? More than three times a week 02/24/2025 How often do you get togethe r with friends or relatives? Three times a week 02/24/2025 How often do you attend chur ch or baptism services? More than 4 times per year 02/24/2025 Do you belong to any clubs o r organizations such as tenriism groups, unions, fraternal or athletic groups, or school groups? No 02/24/2025 How often do you attend meet ings of the clubs or organizations you belong to? More than 4 times per year 02/24/2025 Are you , , di vorced, , never , or living with a partner? Never 02/24/2025 AUDIT-C Answer Date Recorded Q1: How often do you have a drink containing alcohol? Never 02/24/2025 Q2: How many drinks containi ng alcohol do you have on a typical day when you are drinking? Patient does not drink Q3: How often do you have si x or more drinks on one occasion? Never 02/24/2025 Overall Financial Resource Strain (CARDIA) Answe r Date Recorded How hard is it for you to pa y for the very basics like food, housing, medical care, and heating? Not very hard 02/24/2025 PHQ-2 Answer Date Recorded PHQ-2 score 2 03/10/2025 [facility] [place] of Occupat ional Health - Occupational Stress Questionnaire Answer Date Recorded Do you feel stress - tense, restless, nervous, or anxious, or unable to sleep at night because your mind is troubled all the time - these days? Rather much 02/24/2025 Exercise Vital Sign Answer Date Recorde d On average, how many days pe r week do you engage in moderate to strenuous exercise (like a brisk walk)? 3 days 02/24/2025 On average, how many minutes do you engage in exercise at this level? 30 min 02/24/2025 Hunger Vital Sign Answer Date Recorded Within the past 12 months, y ou worried that your food would run out before you got the money to buy more. Never true 02/25/20 25 Within the past 12 months, t he food you bought just didn't last and you didn't have money to get more. Never true 02/24/2025 PRAPARE - Transportation Answer Date Re corded In the past 12 months, has l ack of transportation kept you from medical appointments or from getting medications? No 02/08 In the past 12 months, has l ack of transportation kept you from meetings, work, or from getting things needed for daily living? No 02/24/2025 Housing Stability Vital Sign Answer Esequiel e Recorded In the last 12 months, was t here a time when you were not able to pay the mortgage or rent on time? No 12/16/2022 In the last 12 months, how many places have you lived? 3 12/16/2022 In the last 12 months, was t here a time when you did not have a steady place to sleep or slept in a alf (including now)? No 12/16/2022 [place] Depression Scale Answer Date Recorded [place] Depression Scale Total 1 10/30/2020 The thought of harming myself has occurred to me . Never 10/30/2020 Housing Stability Vital Sign Answer Esequiel e Recorded In the last 12 months, was t here a time when you were not able to pay the mortgage or rent on time? No 02/24/2025 Number of Times Moved in the Last Year Not on fi le 02/24/2025 Homeless in the Last Year Not on file 2024 Area Deprivation Index Answer Date Ger rded National Score (1-100), lower number is lower ri sk 93 07/17/2023 State Score (1-10), lower number is lower risk 9 07/17/2023 Data from: https://www.neighborhoodatlas.medicine.[facility].edu/. Last address used for calculation [address] 07/17/2023 Education Answer Date Recorded What is the highest level of school you have completed or the highest degree you have received? Bachelor's degree (e.g., BA, AB, BS) 04/25/2022 Estimated Date of Delivery Comme nts Yes 10/27/2024 Sex and Gender Information Value Date Recorded Sex Assigned at Female 12/23/2020 1:00 AM EST Legal Sex Female 11:23 AM EST Gender Identity Female 12/23/2020 1:00 AM EST Sexual Orientation Straight 12/23/2020 1: 00 AM EST documented as of this encounter Last Filed Vital Signs Vital Sign Reading Time Taken Comments Blood Pressure 107/73 04/01/2025 2:09 PM EDT Pulse 84 04/01/2025 2:09 PM EDT Temperature 36.8 C (98.2 F) 04/01/2025 2:09 PM EDT Respiratory Rate 16 04/01/2025 2:09 PM EDT Oxygen Saturation 99% 04/01/2025 2:09 PM EDT Inhaled Oxygen Concentration - - Weight - - Height - - Body Mass Index - - documented in this encounter Functional Status * Are you deaf or do you have serious difficulty hearing? Answer Date of Assessment Author No 01/11/2021 4:00 PM Gomez Castellano RN * Are you blind or do you have serious difficulty seeing, even when wearing glasses? Answer Date of Assessment Author No 01/11/2021 4:00 PM Gomez Castellano RN * Do you have serious difficulty walking or climbing stairs? Answer Date of Assessment Author No 01/11/2021 4:00 PM Gomez Castellano RN * Do you have difficulty dressing or bathing? Answer Date of Assessment Author No 01/11/2021 4:00 PM Gomez Castellano RN * Because of a physical, mental, or emotional condition, do you have difficulty doing errands alone such as visiting a doctor's office or shopping? Answer Date of Assessment Author No 01/11/2021 4:00 PM Gomez Castellano RN documented as of this encounter Mental Status * Because of a physical, mental, or emotional condition, do you have serious difficulty concentrating, remembering, or making decisions? Answer Entry Date Author No 01/11/2021 4:00 PM Gomez Castellano RN documented in this encounter Plan of Treatment Upcoming Encounters Date Type Department Care Team (Latest Contact Info) Description 04/12/2025 11:00 AM EDT Specialty Pharmacy [id number] [place] [address] Pharmacist, [facility] [address] [place] [address] [place] [address] refill - glatiramer MWF--lvm 03/29,04/08(wa) 05/23/2025 1:30 PM EDT Office Visit [facility] [address] [address] Maulik Toney, DO [address] [place], [place] [id number] optic neuritis and MS 07/20/2025 12:00 PM EDT Office Visit Family Medicine [facility] [address] [place] [address] MD [address] [place] [address] physical 09/30/2025 9:00 AM [facility] Hematology/Oncology [address] [place] [address] [place] [address] [facility] Scheduled Orders Name Type Priority Associated Diagnoses Orde r Schedule UA DIP,URINE HCG (POC) Lab Routine Multiple sclerosis (HCC) Ordered: 04/01/2025 documented as of this encounter Goals Goal Patient Goal Type Associated Problems Recent Progress Patient-Stated? Author Sleep Efficiency Care Plan Sleep Efficiency No Lashawn Lazo, PhD documented as of this encounter Visit Diagnoses Diagnosis Multiple sclerosis (HCC)- Primary Multiple sclerosis documented in this encounter Administered Medications Inactive Administered Medications - up to 3 most recent administrations Medication Order MAR Action Action Date Dose Rate Site acetaminophen 1,000 mg tab(s) (TYLENOL) 1,000 mg, ORAL, ONCE, 1 dose, On Fri04/01/25 at 1000, No more than 4000 mg of acetaminophen should be given per day (FROM ALL SOURCES)Indications:Multip le sclerosis (HCC) Given 04/01/2025 9:45 AM EDT 1,000 mg diphenhydrAMINE 50 mg capsule (BENADRYL) 50 mg, ORAL, ONCE, 1 dose, On Fri04/01/25 at 1000Indications:Multiple sclerosis (HCC) Given 04/01/2025 9:45 AM EDT 50 mg methylPREDNISolone sod succinate(PF) 100 mg injection (SOLU-Medrol) 100 mg, INTRAVENOUS, ONCE, 1 dose, On Fri04/01/25 at 1000Indications:Multiple sclerosis (HCC) Given 04/01/2025 9:47 AM EDT 100 mg ocrelizumab 300 mg in NaCl 0.9% 250 mL (OCREVUS) 300 mg, INTRAVENOUS, ONCE, 1 dose, On Fri04/01/25 at 1000, Initial infusion. Start infusion at 30 mL/hr, Increase by 30 mL/hr every 30 minutes. Maximum rate = 180 mL/hr APPROXIMATE TOTAL VOLUME: 285 mL EXP: 04/01/2025 1740 RT Administer with 0.2 micron filter. Refrigerate - EXP: (24 HR)Indications:Multiple sclerosis (HCC) Rate/Dose Change 04/01/2025 12:48 PM EDT 180 mL/hr Rate/Dose Change 04/01/2025 12:18 PM EDT 150 mL /hr Rate/Dose Change 04/01/2025 11:44 AM EDT 120 mL /hr documented in this encounter Additional Health Concerns Active Problems Noted Date Diagnosed Date Sleep Efficiency 07/08/2024 documented as of this encounter Care Teams Automotive Service Writer Relationship Specialty Start Date End Date Rashard Lane MD [address] [place] [address] PCP - General Family Medicine 1/30/20 Juan Miguel Caballero, [facility] 05/30/24 Olimpia Turpin, BOOMBOAT OPERATOR.HORTICULTURE SUPERVISOR [address] [place] [address] [facility] 10/18/24 documented as of this encounter
--- OUTSIDE RECORDS SUMMARY | 2025-04-01 09:00 | XMS_ITS | Encounter Summary ---
Author Organization [facility] Address [address] [place] [address] Care Team Providers Care Tactical Response Group Officer Name Role Phone Rashard Lane MD Primary Care Provider [phone] Juan Miguel Caballero [facility] Unavailable Unavailable Olimpia Turpin MANAGER BOOK.[facility] Unavailable [phone] Source Comments In the event this information is protected by the Federal Confidentiality of Alcohol and Drug AbusePatient Records regulations: The Federal rules restrict any use of the information to criminally investigate or prosecute any alcohol or drug abuse patient.[facility] Encounter Details Date Type Department Care Team (Late st Contact Info) Description 04/01/2025 9:00 AM EDT Nurse Visit Hematology/Oncology [address] [place] [address] Negro Vergara Nurse Roger [address] [place] [place] [address] High risk medication use (Primary Dx) Social History Tobacco Use Types [...] often do you attend chur ch or gnosticist services? More than 4 times per year 02/24/2025 Do you belong to any clubs o r organizations such as confucianist groups, unions, fraternal or athletic groups, or [...] Answer Date Recorded PHQ-2 score 2 03/10/2025 [facility]ational Stress Questionnaire Answer Date [...] place to sleep or slept in a prison (including now)? No 12/16/2022 [place] Depression Scale Answer Date Recorded [place] Depression Scale Total 1 10/30/2020 The thought [...] is lower risk 9 07/17/2023 Data from: https://www.neighborhoodatlas.medicine.[employer].edu/. Last address used for calculation [address] 07/17/2023 Education Answer Date Recorded What is [...] AM EST documented as of this encounter Functional Status * Are you [...] Gomez Castellano RN documented in this encounter Progress Notes * Melodie Stewart MA - 04/01/2025 10:28 AM EDT Back office UA test performed. Results entered in [employer] and doctor notified. Melodie Stewart MA documented in this encounter Plan of Treatment Upcoming Encounters Date Type Department Care Team (Latest Contact Info) Description 04/12/2025 11:00 AM EDT Specialty [facility]acy [facility] [id number] [place] [address] Pharmacist, [facility]ty[facility] [address] [place] [address] [place] [address] refill - glatiramer MWF--lvm 03/29,04/08(wamb) 05/23/2025 1:30 PM EDT Office Visit OPHT Ophthalmology [address] [address] Maulik Toney DO [address] [place] [place], [place] [id number] optic neuritis and MS 07/20/2025 12:00 PM EDT Office Visit Family Medicine [facility] [address] [place] [address] MD [address] [place] [address] physical 09/30/2025 9:00 AM [facility] Hematology/Oncology [address] [place] [address] OCREVUS documented as of this encounter Goals Goal Patient Goal Type Associated Problems Recent Progress Patient-Stated? Author Sleep Efficiency Care Plan Sleep Efficiency No Lashawn Lazo, PhD documented as of this encounter Procedures Procedure Name Priority Date/Time Associated Diagnosis Comments UA DIP,URINE HCG (POC) Routine 04/01/2025 10:20 AM EDT documented in this encounter Results * UA DIP,URINE HCG (POC) (04/01/2025 10:20 AM EDT) Urine hCG (POCT) Negative Negative [facility] Comment:Location:[facility], [facility] [address] [place], [place], [address] [employer] [place] (POCT) Internal QC OK [facility] 04/01/2025 10:2 0 AM EDT Narrative [place] [facility] - 04/01/2025 10:20 AM EDT Location:[facility], [facility] [address] [place], [place], [address] [facility] Provider POC TESTING Final Result [place] [facility] [address] [facility] [address] [place] documented in this encounter Visit Diagnoses Diagnosis High risk medication use- Primary Encounter for long-term (current) use of other medications documented in this encounter Additional Health Concerns Active Problems Noted Date Diagnosed Date Sleep Efficiency 07/08/2024 documented as of this encounter Care Teams Tactical Response Group Officer Relationship Specialty Start Date End Date Rsahard Lane MD [address] [place] [address] PCP - General Family Medicine 12/09/19 Juan Miguel Caballero [facility] 05/30/24 Olimpia Turpin, MANAGER BOOK.BACON SKINNER [address] [place] [address] Casing Fluid Tender Family Medicine 10/18/24 documented as of this encounter
--- OUTSIDE RECORDS SUMMARY | 2025-04-11 13:00 | XMS_ITS | Encounter Summary ---
Author Organization [facility] Address [address] [place] [address] Care Team Providers Care Engraver Machine Name Role Phone Rashard Lane MD Primary Care Provider [phone] Reason for Visit * Reason Comments Well Women Visit Encounter Details Date Type Department Care Team (Late st Contact Info) Description 04/11/2025 1:00 PM EDT Office Visit [facility] [address] [place] [address] Jahaira Byers PA [address] [place] [address] Well woman exam with routine gynecological exam Social History Tobacco Use Types Packs/Day Years Used Date Smoking Tobacco: Never Smokeless Tobacco: Never Alcohol Use Standard Drinks/Week Comments Never 0 (1 standard drink = 0.6 oz pur e alcohol) Comments Unknown Sex and Gender Information Value Date Recorded Sex Assigned at Female 08/10/2023 7:29 PM EDT Legal Sex Female 11:46 PM EDT Gender Identity Female 08/10/2023 7:29 PM EDT Sexual Orientation Not on file documented as of this encounter Last Filed Vital Signs Vital Sign Reading Time Taken Comments Blood Pressure 100/80 04/11/2025 1:17 PM EDT Pulse - - Temperature - - Respiratory Rate - - Oxygen Saturation - - Inhaled Oxygen Concentration - - Weight 65.5 kg (144 lb 8 oz) 04/11/2025 1:17 PM EDT Height - - Body Mass Index 22.97 09/18/2023 9:36 AM EST documented in this encounter Progress Notes * Mari Wolff NP - 04/11/2025 1:00 PM EDT Reason for Appointment: Patient ID: Smooth Martinez is a 39 y.o. female who presents for Well Women Visit Patient presents today for Annual Exam. MEDICATIONS Current Outpatient Medications Medication Instructions cetirizine (ZYRTEC) 10 mg, Oral, Daily cholecalciferol (VITAMIN D3) 1.25 mg, Weekly clotrimazole-betamethasone (Lotrisone) cream 1 application , Topical, Daily, Apply to affected areadaily for 7 days ergocalciferol (VITAMIN D-2) 50,000 Units, Weekly fluticasone (Flonase) 50 MCG/ACT nasal spray 2 sprays, Each Nostril, Daily PRN, Shake gently. Before first use, prime pump. After use, clean tip and replace cap. glatiramer (COPAXONE,GLATOPA) 20 mg, Daily RT Ketotifen Fumarate 0.035 % solution 1 drop, 2 times daily magnesium oxide (Mag-Ox) 400 MG tablet 1 tablet, Nightly Ocrelizumab (OCREVUS IV) Every 6 months Vit-Fe Fumarate-FA (M-Blake Plus) 27-1 MG tablet 1 tablet, Daily QUEtiapine (SEROQUEL) 25-50 mg, Every 12 hours PRN tobramycin (Tobrex) 0.3 % ophthalmic solution ALLERGIES Allergies Allergen Reactions Gluten Meal Hives, [...] reaction(s): Headaches, Other (See Comments) Soy Allergy (Obsolete) Headache and Unknown Other Reaction(s): Other (See [...] routine gynecological exam 03/22/2024 Missed menses 03/22/2024 Foreign body of right cornea 03/14/2025 Resolved Ambulatory Problems Diagnosis Date Noted No Resolved Ambulatory Problems Past Medical History: Diagnosis Date Abnormal Pap smear of cervix 2007 Bacterial vaginosis 2018 Hypocalcemia Hypoglycemia Low iron MS (multiple sclerosis) ([facility]) 2006 Optic neuritis Urinary incontinence 2009 HISTORY PAST MEDICAL HISTORY SOCIAL HISTORY Past Medical History: Diagnosis Date Abnormal Pap smear of cervix 2007 Bacterial vaginosis 2019 Hypocalcemia Hypoglycemia Low iron MS (multiple sclerosis) ([facility]) 2006 [facility] - Dr. Williamson Optic neuritis multiple occurrences since 2006 - only OS until 4 yrs ago when OD involved however never got visionback in OD. Urinary incontinence 2009 Social History Tobacco Use [...] appearance. She is well-developed. Genitourinary: Vulva normal. Breasts: Breasts are soft. Right: Normal. Left: Normal. Cardiovascular: Rate and Rhythm: Normal rate and [...] nursing note reviewed. Exam conducted with a program arranger present. Vitals: Estimated body mass index is 22.97 kg/m?? as calculated from the following: Height as of 09/18/23: 5' 6.5 . Weight as of this encounter: 144 lb 8 oz. BP: 100/80 No LMP recorded. ASSESSMENT & PLAN ICD-10-CM 1. Well woman exam with routine gynecological exam Z01.419 Pap Smear HPV DNA probe, amplified Annual Exam: Patient presents today for an annual exam. Patient states she is doing well and has no complaints. Pap was obtained without difficulty. Orders Placed This Encounter Procedures HPV DNA probe, amplified Follow Up: Patient is to return in one year for annual unless needed otherwise. Documented by Mari Wolff NP on behalf of: ANSON Mon documented in this encounter Plan of Treatment Upcoming Encounters Date Type Department Care Team (Late st Contact Info) Description 04/25/2025 2:45 PM EDT Office Visit [facility] [address] [place] [address] Simón Powell DO [address] [place] [address] 04/17/2026 1:00 PM EDT Office Visit [facility] [address] [place] [address] Jahaira Byers PA [address] [place] [address] [place] [address] Scheduled Orders Name Type Priority Associated Diagnoses Orde r Schedule Pap Smear Pathology and Cytology Routine Well woman exam with routine gynecological exam Ordered: 04/11/2025 HPV DNA probe, amplified Microbiology Routine Well woman exam with routine gynecological exam Ordered: 04/11/2025 documented as of this encounter Visit Diagnoses Diagnosis Well woman exam with routine gynecological exam Routine gynecological examination documented in this encounter Care Teams Engraver Machine Relationship Specialty [place] [address] [place] [address] PCP - General Pediatrics 10/26/23 documented as of this encounter
--- OUTSIDE RECORDS SUMMARY | 2025-04-11 15:10 | XMS_ITS | Encounter Summary ---
Author Organization [facility] Address [address] [place] [address] Care Team Providers Care Scaleman Name Role Phone Rashard Lane MD Primary Care Provider [phone] Juan Miguel Caballero [facility] Unavailable Unavailable Olimpia Turpin TRIAL CONSULTANT.DIRECTOR OF FEDERAL SALES Unavailable Maricruz Valdovinos PA-C Unavailable [phone] Source Comments In the event this information is protected by the Federal Confidentiality of Alcohol and Drug AbusePatient Records regulations: The Federal rules restrict any use of the information to criminally investigate or prosecute any alcohol or drug abuse patient.[facility] Encounter Details Date Type Department Care Team (Late st Contact Info) Description 01/05/2024 Patient [facility] [address] [id number] Provider, [facility] Appointment Social History Tobacco Use Types Packs/Day Years Used Date Smoking Tobacco: Never Passive Smoke Exposure: Past Smokeless Tobacco: Never Alcohol Use Standard Drinks/Week Comments Not Currently 0 (1 standard drink = 0.6 oz pur e alcohol) occas Social Connection and Isolation Panel [NHANES] A nswer Date Recorded In a typical week, how many times do you talk on the phone with family, friends, or neighbors? Three times a week 12/16/2022 How often do you get togethe r with friends or relatives? Never 12/16/2022 How often do you attend chur ch or taoist services? Never 12/16/2022 Do you belong to any clubs o r organizations such as adventist groups, unions, fraternal or athletic groups, or school groups? No 12/16/2022 How often do you attend meet ings of the clubs or organizations you belong to? Never 12/16/2022 Are you , , di vorced, , never , or living with a partner? Never 12/16/2022 AUDIT-C Answer Date Recorded Q1: How often do you have a drink containing alcohol? Never 12/16/2022 Q2: How many drinks containi ng alcohol do you have on a typical day when you are drinking? Patient does not drink Q3: How often do you have si x or more drinks on one occasion? Never 12/16/2022 Overall Financial Resource Strain (CARDIA) Answe r Date Recorded How hard is it for you to pa y for the very basics like food, housing, medical care, and heating? Somewhat hard 12/16/2022 PHQ-2 Answer Date Recorded PHQ-2 score 0 08/11/2023 [facility] - Occupational Stress Questionnaire Answer Date Recorded Do you feel stress - tense, restless, nervous, or anxious, or unable to sleep at night because your mind is troubled all the time - these days? Very much 12/16/2022 Exercise Vital Sign Answer Date Recorde d On average, how many days pe r week do you engage in moderate to strenuous exercise (like a brisk walk)? 0 days 12/16/2022 On average, how many minutes do you engage in exercise at this level? 30 min 12/16/2022 Hunger Vital Sign Answer Date Recorded Within the past 12 months, y ou worried that your food would run out before you got the money to buy more. Often true 12/16/19 23 Within the past 12 months, t he food you bought just didn't last and you didn't have money to get more. Often true 12/16/2022 PRAPARE - Transportation Answer Date Re corded In the past 12 months, has l ack of transportation kept you from medical appointments or from getting medications? Yes 04/2023 In the past 12 months, has l ack of transportation kept you from meetings, work, or from getting things needed for daily living? Yes 12/16/2022 Housing Stability Vital Sign Answer Esequiel e [...] place to sleep or slept in a fpc (including now)? No 12/16/2022 [place] Depression Scale Answer Date Recorded [place] Depression Scale Total 1 10/30/2020 The thought of harming myself has occurred to me . Never 10/30/2020 Area Deprivation Index Answer Date Ger rded National Score (1-100), lower number is lower ri sk 93 07/17/2023 State Score (1-10), lower number is lower risk 9 07/17/2023 Data from: https://www.neighborhoodatlas.medicine.[facility].edu/. Last address used for calculation [address] 07/17/2023 Education Answer Date Recorded What is the highest level of school you have completed or the highest degree you have received? Bachelor's degree (e.g., BA, AB, BS) 04/25/2022 Comments No Sex and Gender Information Value Date Recorded Sex Assigned at Female 12/23/2020 1:00 AM EST Legal Sex Female 11:23 AM EST Gender Identity Female 12/23/2020 1:00 AM EST Sexual Orientation Straight 12/23/2020 1: 00 AM EST documented as of this encounter Functional Status * Are you deaf or do you have serious difficulty hearing? Answer Date of Assessment Author No 01/11/2021 4:00 PM EST Gomez Oliveira RN * Are you blind or do [...] EDT Specialty [facility]acy [facility] [address] [place], [place] [address] [place] [address] Pharmacist, Specialty[facility]3 [address] [place] [address] refill - glatiramer MWF--lvm 03/29,04/08(wa) 05/23/2025 1:30 PM EDT Office Visit [facility]HT Ophthalmology [address] [address] Maulik Toney DO [address] [place], [place] [id number] optic neuritis and MS 07/20/2025 12:00 PM EDT Office Visit Family Medicine [facility] [address] [place] [address] MD [address] [place] [address] physical 09/30/2025 9:00 AM [facility] Hematology/Oncology [address] [place] [address] [place] [address] OCREVUS documented as of this encounter Visit Diagnoses Not on filedocumented in this encounter Care Teams Scaleman Relationship Specialty Start Date End Date Rashard Lane MD [address] [place] [address] PCP - General Family Medicine 12/09/19 Juan Miguel Caballero [facility] 05/30/24 Olimpia Turpin, TRIAL CONSULTANT.DIRECTOR OF FEDERAL SALES [address] [place] [address] Search Advertising Strategist Family Medicine 10/18/24 Maricruz Valdovinos PA-C [address] [place] [address] Search Advertising Strategist Internal Medicine 10/18/24 11/11/24 documented as of this encounter
--- OUTSIDE RECORDS SUMMARY | 2025-04-11 15:10 | XMS_ITS | Encounter Summary ---
Author Organization [facility] Address [address] [place] [address] Care Team Providers Care Dental Assistant Medical Assistant Name Role Phone Rashard Lane MD Primary Care Provider [phone] Juan Miguel Caballero [facility] Unavailable Unavailable Olimpia Turpin LAWN MAINTENANCE WORKER.PAINTER AND GRADER CORK Unavailable [phone] Maricruz Valdovinos PA-C Unavailable [phone] Source Comments In the event this information is protected by the Federal Confidentiality of Alcohol and Drug AbusePatient Records regulations: The Federal rules restrict any use of the information to criminally investigate or prosecute any alcohol or drug abuse patient.[facility] Encounter Details Date Type Department Care Team (Late st Contact Info) Description 03/25/2024 Patient Msg Neurology [address] [place] [address] Mickie Medrano, CYNTHIA.PAINTER AND GRADER CORK [address] [place] [address] Sleep visit after visit instructions Social History Tobacco Use Types Packs/Day Years [...] often do you attend chur ch or mu-ism services? Never 12/16/2022 Do you belong to any clubs o r organizations such as congregational groups, unions, fraternal or athletic groups, or [...] 12/16/2022 PHQ-2 Answer Date Recorded PHQ-2 score 5 03/19/2024 [facility]at ional Health - [...] place to sleep or slept in a assisted (including now)? No 12/16/2022 [place] Depression Scale Answer Date Recorded [place] Depression Scale Total 1 10/30/2020 The thought of harming myself has occurred to me . Never 10/30/2020 Area Deprivation Index Answer Date Ger rded National Score (1-100), lower number is lower ri sk 93 07/17/2023 State Score (1-10), lower number is lower risk 9 07/17/2023 Data from: https://www.neighborhoodatlas.medicine.[facility].edu/. Last address used for calculation [address] 07/17/2023 Education Answer Date Recorded What is [...] EDT Specialty Pharmacy [facility] [address] [place], [place] [address]34[address] [place] [address] Pharmacist, [facility]ty[facility] [address] [place] [address] refill - glatiramer MWF--lvm 03/29,04/08(wamb) 05/23/2025 1:30 PM EDT Office Visit [facility] Ophthalmology [address] [id number] Maulik Toney DO [address] [place] [address] optic neuritis and MS 07/20/2025 12:00 PM EDT Office Visit Family Medicine [address] MD [address] [place] [address] physical 09/30/2025 9:00 AM [facility] Hematology/Oncology [address] [place] [address] [place] [address] OCREVUS documented as of this encounter Visit Diagnoses Not on filedocumented in this encounter Care Teams Dental Assistant Medical Assistant Relationship Specialty Start Date End Date Rashard Lane MD [address] [place] [address] PCP - General Family Medicine 12/09/19 Juan Miguel Caballero [facility] 05/30/24 Olimpia Turpin, LAWN MAINTENANCE WORKER.[facility] [address] [place] [address] Receptionist Family Medicine 10/18/24 Maricruz Valdovinos PA-C [address] [place] [address] Receptionist Internal Medicine 10/18/24 11/11/24 documented as of this encounter
--- OUTSIDE RECORDS SUMMARY | 2025-04-11 15:10 | XMS_ITS | Encounter Summary ---
Author Organization [facility] Address [address] [place] [address] Care Team Providers Care Ceramic Tile Installer Name Role Phone Rashard Lane MD Primary Care Provider [phone] Juan Miguel Caballero [facility] Unavailable Unavailable Olimpia Turpin PLASTERER TENDER.CARTON LETTERING MACHINE OPERATOR Unavailable Maricruz Valdovinos PA-C Unavailable [phone] Source Comments In the event this information is protected by the Federal Confidentiality of Alcohol and Drug AbusePatient Records regulations: The Federal rules restrict any use of the information to criminally investigate or prosecute any alcohol or drug abuse patient.[facility] Encounter Details Date Type Department Care Team (Late st Contact Info) Description 01/21/2023 Get Medical Advice Neuropyschology [address] [place] [address] Anya Soto, PhD [address] [place] [address] Doctor note Social History Tobacco Use Types Packs/Day Years [...] you attend chur ch or baptism services? Never 12/16/2022 Do you belong to any clubs o r organizations such as jew groups, unions, fraternal or athletic groups, or [...] PHQ-2 Answer Date Recorded PHQ-2 score 0 01/13/2023 [facility] - Occupational Stress Questionnaire Answer [...] place to sleep or slept in a intermediate (including now)? No 12/16/2022 [place] Depression Scale Answer Date Recorded [place] Depression Scale Total 1 10/30/2020 The thought of harming myself has occurred to me . Never 10/30/2020 Area Deprivation Index Answer Date Ger rded National Score (1-100), lower number is lower ri sk 89 11/27/2022 State Score (1-10), lower number is lower risk N ot on file 11/27/2022 Data from: https://www.neighborhoodatlas.medicine.[facility].edu/. Last address used for calculation [address] [facility] 11/27/2022 Education Answer Date Recorded What is the [...] AM EDT Specialty Pharmacy [facility] [address] [place], [place] [address] [address] Pharmacist, Specialtygroup3 [address] [place] [address] refill - glatiramer MWF--lvm 03/29,04/08([facility]) 05/23/2025 1:30 PM EDT Office Visit [facility]HT Ophthalmology [address] [id number] Maulik Toney DO [address] [place] [address] optic neuritis and MS 07/20/2025 12:00 PM EDT Office Visit Family Medicine [address] MD [address] [place] [address] physical 09/30/2025 9:00 AM [facility] Hematology/Oncology [address] [place] [address] [place] [address] OCREVUS documented as of this encounter Visit Diagnoses Not on filedocumented in this encounter Additional Health Concerns Infection Onset Date Last Indicated Resolved Time COVID-19 Rule-Out 02/12/2023 02/12/2023 02/13/2023 1:49 AM EDT COVID-19 Confirmed 02/12/2023 02/12/2023 8:51 PM EDT documented as of this encounter Care Teams Ceramic Tile Installer Relationship Specialty Start Date End Date Rashard Lane MD [address] [place] [address] PCP - General Family Medicine 12/09/19 Juan Miguel Caballero [facility] 05/30/24 Olimpia Turpin, PLASTERER TENDER.CARTON LETTERING MACHINE OPERATOR [address] [place] [address] Equipment Hire Manager Family Medicine 10/18/24 Maricruz Valdovinos PA-C [address] [place] [address] Equipment Hire Manager Internal Medicine 10/18/24 11/11/24 documented as of this encounter
--- OUTSIDE RECORDS SUMMARY | 2025-04-11 15:10 | XMS_ITS | Clinical Summary ---
Author Organization [facility] Address [address] [place], [place] [id number] Care Team Providers Care Potato Chip Fryer Name Role Phone Rashard Lane MD Primary Care Provider Juan Miguel Caballero [facility] Unavailable Unavailable Olimpia Turpin LEAD TECHNICAL ARCHITECT.MANAGEMENT TRAINEE Unavailable [phone] Allergies Active Allergy Reactions Criticality Noted Date Comments Gluten Other: See Comments,Hives,Itching 03/19/2019 chest pain, rashes, constipation Other reaction(s): Other (See Comments) Constipation Chest pain Boils Stomach upset chest pain, rashes, constipation Lecithin Other: See Comments,Unknown,Itching ,GI Upset Low 03/19/2019 More constipated More constipated Other reaction(s): Nausea And Vomiting More constipated More constipated Lecithin, Soy GI Upset,Unknown 08/14/2022 Soy Intolerance 11/15/2019 Other reaction(s): Headaches, Other (See Comments) Medications * This document contains information received from the source organization and may not represent a complete record from that organization. fluticasone (FLONASE) 50 mcg/actuation nasal spray Use 1 [place] in each nostril once daily. 1 g 5 2019 Active VITAMIN B COMPLEX ORAL Take by mouth. Activ e tiZANidine (ZANAFLEX) 2 mg tabletIndications:M ultiple sclerosis (HCC) Take 1 tablet by mouth every 8 hours as needed. 90 tablet 3 2022 Active ketoconazole (NIZORAL) 2 % cream Apply to affected area once daily. Apply qd 30 g 3 2022 Active vitamin B complex with C-FA-CU-ZN renal vitamins (DIATX ZN) 5-1.5-25 mg tab Take by mouth every 24 hours. Active FERROUS SULFATE ORAL Take by mouth every 24 hours. Active multivitamin with minerals (MULTIPLE VITAMIN-MINERALS) tablet Take 1 tablet by mouth every 24 hours. Active ketoconazole (NIZORAL) 2 % shampoo 2-3 times weekly as body wash 125 mL 11 2023 Active magnesium oxide (MAG-OX) 400 mg (241.3 mg magnesium) tabletIndications:M ultiple sclerosis (HCC),Spasticity,Co nstipation, unspecified constipation type Take 1 tablet by mouth daily at bedtime. 30 tablet 5 2023 Active cholecalciferol (VITAMIN D-3) 5,000 unit tabIndications:Mult iple sclerosis (HCC) Take 1 tablet by mouth once daily. 90 tablet 3 2023 Active mometasone (ELOCON) 0.1 % cream Apply to affected area once daily. 30 g 2023 Active Additional Information Patient not taking.Reason: Course of Therapy Completed, Reported on 04/01/2025 methylPREDNISolone (MEDROL DOSE-PACK) 4 mg Dose-Pack Day 1: 6 tablets Day 2: 5 tablets Day 3: 4 tablets Day 4: 3 tablets Day 5: 2 tablets Day 6: 1 tablet 2023 Active ergocalciferol 50,000 unit capsule (VITAMIN D2, DRISDOL)Indications :Multiple sclerosis (HCC),Vitamin D deficiency TAKE 1 CAPSULE BY MOUTH ONCE EVERY WEEK 12 capsule 3 2023 Active glatiramer (COPAXONE) 40 mg/mL injectionIndication s:Multiple sclerosis (HCC) Inject 40 mg subcutaneously every Friday, Friday, and Friday. 12 mL 5 03/14/20 25 1:25 PM EDT 2024 Active Additional Information Patient not taking.Reason: Discontinued by Patient, Reported on 04/01/2025 predniSONE (DELTASONE) 50 mgIndications:multi ple sclerosis Take 25 pills per day. Take with food no later than 2 pm. 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 To be taken AFTER high dose oral steroids 24 tablet 2024 Active Additional Information Patient not taking.Reason: Course of Therapy Completed, Reported on 04/01/2025 M- PLUS 27 mg iron- 1 mg Take 1 tablet by mouth once daily. 2024 Active ketotifen fumarate (ZADITOR) 0.025 % (0.035 %) ophthalmic solutionIndications :Allergic conjunctivitis of both eyes Use 1 drop in both eyes two times a day. 5 mL 1 2024 Active QUEtiapine (SEROQUEL) 25 mg tabletIndications:I nsomnia due to medical condition Take 1-2 tablets by mouth two times a day as needed (anxiety and/or insomnia). 120 tablet 2 06/13 Active valACYclovir (VALTREX) 500 mg tablet Take 500 mg by mouth. 03/20 QUEtiapine (SEROQUEL) 25 mg tabletIndications:I nsomnia due to medical condition Take 1-2 tablets by mouth two times a day as needed (for insomnia). 120 tablet 03/15 Discontinued Active Problems Problem Noted Date Diagnosed Date Right hip pain 09/03/2024 Abnormal antibody titer 01/08/2021 Neurogenic bladder 07/14/2020 Overview (04/17/2021): On most recent creatinine was normal. Will obtain renal ultrasound at her convenience to assess for any upper tract changes On most recent creatinine was normal. Will obtain renal ultrasound at her convenience to assess for any upper tract changes Chronic insomnia 01/04/2020 Multiple sclerosis 11/15/2019 Optic neuritis 08/21/2019 Overview (04/17/2021): Start Date: 03/2009 Start Date: 03/2009 Bilateral hearing loss 07/14/2018 Ovarian cyst, complex 04/14/2018 Ovarian torsion 04/14/2018 Restless leg syndrome 07/28/2017 Estimated Date of Delivery Comme nts Yes 10/27/2024 Resolved Problems Problem Noted Date Diagnosed Date Resolved Date [...] collapse 12/04/2018 023 Obstructive sleep apnea 07/28/201705/2023 Overview (04/17/2021): Updating Deprecated Diagnoses Somnolence, daytime 07/28/2017 04/20/20 21 Encounters * This document contains information received from the source organization and may not represent a complete record from that organization. Date Type Department Care Team Description 04/01/2025 9:00 AM EDT Nurse Visit Hematology/Oncolog y [address] [place] [address] Negro Vergara Nurse Roger High risk medication use (Primary Dx) 04/01/2025 9:00 AM EDT Infusion Center Hematology/Oncolog y [address] [place] [address] Multiple sclerosis (HCC) (Primary Dx) 03/29/2025 Specialty Pharmacy [facility] [address] [place], [place] [id number] [address] Edu Cain, RP SPP Neurology - Medication Refill (Glatiramer) 03/28/2025 Get Medical Advice Nutrition Therapy [address] [place] [address] Provider, [facility] Like sample 03/23/2025 1:45 PM EDT Education Nutrition Therapy [address] [place] [address] Patient Education; Reassessment 03/21/2025 Get Medical Advice [address] [address] Anya Cast, CYNTHIA.MANAGEMENT TRAINEE Nursing on Ocrevus 03/18/2025 Results Follow-Up [address] [address] Anya Cast, LEAD TECHNICAL ARCHITECT.MANAGEMENT TRAINEE 03/18/2025 Results Follow-Up [address] [address] Anya Cast, LEAD TECHNICAL ARCHITECT.MANAGEMENT TRAINEE 03/17/2025 9:00 AM EDT Infusion Center Hematology/Oncolog y [address] [place] [address] Multiple sclerosis (HCC) (Primary Dx); 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 [address] [address] Anya Cast APRN.CNP 03/16/2025 Orders Only [address] [address] Anya Cast APRN.CNP 03/15/2025 Orders Only Hematology/Oncolog y [address] [place] [address] Haritha Wisdom [facility] 03/15/2025 Get Medical Advice [address] [address] Anya Cast APRN.MANAGEMENT TRAINEE Change Ocrevus location 03/14/2025 Results Follow-Up Family Medicine [facility] [address] [place] [address] MD 03/14/[address] [address] Anya Cast APRN.MANAGEMENT TRAINEE Appointment ([facility] for patient to call so we can het her scheduled for her start up dose of her infusion and a 3 month follow up) 03/12/2025 10:51 AM EDT - 03/12/2025 11:59 PM EDT Hospital Encounter Radiology [address] [place] [address] Abnormal pleural fluid [R89.9] Discharge Disposition: Home 03/12/2025 Patient Msg Internal Medicine [place] [address] [place] [address] Provider, [facility] Billing Phone Number 03/11/2025 1:00 PM EDT [address] [address] Anya Cast APRN.CNP Multiple sclerosis (HCC) (Primary Dx); Other specified hypothyroidism; Chronic fatigue 03/10/2025 Nurse Triage NURSE [facility] [employer]ATER [address] [place] [address] Jerardo Moncada, FREYA Eye Complaint; Information; Bulging Left Eye 03/08/2025 Specialty Pharmacy [facility] [address] [address] Edu Cain RP SPP Neurology - Medication Refill (Glatiramer) 03/07/2025 Travel 03/02/[address] [address] Anya Cast APRN.MANAGEMENT TRAINEE Ocrevus infusions approved 03/01/2025 Refill [facility] [address] [place] [address] Anya Cast APRN.MANAGEMENT TRAINEE Refill Request 02/28/2025 2:00 PM EDT [facility] [address] [place] [address] MD Bacterial sinusitis (Primary Dx); Abnormal pleural fluid 02/22/[address] [facility] [address] [place] [address] MD Appointment Request 02/11/[address] [address] Anya Cast APRN.MANAGEMENT TRAINEE Lab results needed 02/11/2025 Results Follow-Up [address] [address] Anya Cast APRN.MANAGEMENT TRAINEE 02/10/2025 1:21 PM EDT - 02/10/2025 11:59 PM EDT Hospital Encounter RADIO MRI [facility] [address] [place] [address] Multiple sclerosis (HCC) [G35] Discharge Disposition: Home 02/08/2025 Specialty Pharmacy [facility] [address] [address] Edu Cain RP SPP Neurology - Medication Refill (Glatiramer) 02/08/2025 Telephone Neurology [address] [place] [address] [place], Lab Neur [facility] Appointment (02/08/25. LVM and call center # for Pt to reschedule MRIs any day but Sundays. Brain MRI should be scheduled ANDER. CS and TS MRIs can be scheduled at a later date if needed. WS) 02/04/2025 Abstract 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 [address] [address] Anya Cast APRN.MANAGEMENT TRAINEE MRI and lab orders 02/03/[address] [address] Anya Cast APRN.MANAGEMENT TRAINEE Ocrevus [place] Checklist 02/03/2025 Travel 02/02/[address] [address] Anya Cast APRN.MANAGEMENT TRAINEE Symptoms (Numbness) 01/11/2025 Specialty Pharmacy [facility] [address] [address] Edu Cain, [facility] SPP Neurology - Medication Refill (Glatiramer) from Last 3 Months Immunizations Immunization Administration Dates Next Due influenza (IIV4) vaccine, ag e 6 mo - 64 yr, quadrivalent, PF (AFLURIA, FLUARIX, FLULAVAL, FLUZONE) 11/20/2023 tetanus diphtheria pertussis (Tdap) vaccine, age 7+ yr (ADACEL, BOOSTRIX) 01/15/2022 Family History Medical History Relation Comments No Ocular Disease Father Prostate Cancer Father No Ocular Disease Mother Schizophrenia Mother Seizures Paternal Aunt Relation Status Comments Father Alive Mother Alive Paternal Aunt Alive Social History Tobacco Use Types Packs/Day Years Used Date Smoking Tobacco: Never Passive Smoke Exposure: Past Smokeless Tobacco: Never Tobacco Cessation:Counseling Given: Not Answered Alcohol Use Standard Drinks/Week Comments Not Currently [...] often do you attend chur ch or yarsanism services? More than 4 times per year 02/24/2025 Do you belong to any clubs o r organizations such as methodist groups, unions, fraternal or athletic groups, or [...] Answer Date Recorded PHQ-2 score 2 03/10/2025 [facility] - [...] place to sleep or slept in a long term (including now)? No 12/16/2022 [place] Depression Scale Answer Date Recorded [place] Depression Scale Total 1 10/30/2020 The thought [...] is lower risk 9 07/17/2023 Data from: https://www.neighborhoodatlas.medicine.[facility].edu/. Last address used for calculation [address] 07/17/2023 Education Answer Date Recorded What [...] Orientation Straight 12/23/2020 1: 00 AM EST Last Filed Vital Signs Vital Sign Reading Time Taken Comments Blood Pressure 107/73 04/01/2025 2:09 PM EDT Pulse 84 04/01/2025 2:09 PM EDT Temperature 36.8 C (98.2 F) 04/01/2025 2:09 PM EDT Respiratory Rate 16 04/01/2025 2:09 PM EDT Oxygen Saturation 99% 04/01/2025 2:09 PM EDT Inhaled Oxygen Concentration - - Weight 68 kg (150 lb) 03/23/2025 1:52 PM EDT Height 167.6 cm (5' 6 ) 09/22/2024 8:42 AM EST Body Mass Index 24.21 09/22/2024 8:42 AM EST Plan of Treatment Upcoming Encounters Date Type Department Care Team (Latest Contact Info) Description 04/12/2025 11:00 AM EDT Specialty Pharmacy [facility] [address] [place] [address]-[address] [place] [address] Pharmacist, [facility] [address] [place] [id number] refill - glatiramer MWF--lvm 03/29,04/08(wamb) 05/23/2025 1:30 PM EDT Office Visit [facility] Ophthalmology [address] [address] Maulik Toney, [address] [place] [address] optic neuritis and MS 07/20/2025 12:00 PM EDT Office Visit Family Medicine [facility] [address] [place] [address] MD [address] [place] [address] physical 09/30/2025 9:00 AM EST Infusion Center Hematology/Oncology [address] [place] [address] [place] [address] OCR[facility]US Health Maintenance Due Date Last Done Comments Covid-19 Vaccine ( - 2023-2 5 season) 2024 Influenza Vaccine (Season Ended) 2025 11/20/19 24 Anxiety Screening 07/19/2025 07/19/2024, 07/19/2024 Depression Screening 07/19/2025 07/19/2024, 07/19/20 24 Cervical Cancer Screening 03/07/2026 03/07/2021, DTaP,Tdap,Td Vaccine (2 - Td or Tdap) 01/16/2032 01/15/2022 RSV Vaccine (1 - 1-dose 75+ series) 2060 HIV Screening Completed 2020 Hepatitis C Screening Completed 03/17/2025 , 03/17/2025, 09/25/2023, Additional history exists Goals Goal Patient Goal Type Associated Problems Recent Progress Patient-Stated? 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) HEP B SURF AB QUAL Routine 03/17/2025 9: 38 AM EDT Multiple sclerosis (HCC) 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) HEP B SURF AG SCRN Routine 03/17/2025 9: 38 AM EDT Multiple sclerosis (HCC) 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) HEPATITIS C ANTIBODY IA WITH CONFIRMATION Routine 03/17/2025 9:38 AM EDT Multiple sclerosis (HCC) 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) T4 FREE/FREE THYROX Routine 03/17/2025 9 :38 AM EDT Multiple sclerosis (HCC) Other specified hypothyroidism T3 BLD Routine 03/17/2025 9:38 AM EDT Multiple sclerosis (HCC) Other specified hypothyroidism TSH BLD Routine 03/17/2025 9:38 AM EDT Multiple sclerosis (HCC) Other specified hypothyroidism VITAMIN D 25 HYDROXY Routine 03/17/2025 9:38 AM EDT Multiple sclerosis (HCC) 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) Vitamin D deficiency BLOOD TB SCREEN Routine 03/17/2025 9:38 AM EDT Multiple sclerosis (HCC) 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) VARICELLA ZOSTER IGG Routine 03/17/2025 9:38 AM EDT Multiple sclerosis (HCC) 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) HEP REMOTE PANEL BL Routine 03/17/2025 9 :38 AM EDT Multiple sclerosis (HCC) 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) IGM Routine 03/17/2025 9:38 AM EDT Multiple sclerosis (HCC) 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) IGG Routine 03/17/2025 9:38 AM EDT Multiple sclerosis (HCC) 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) COMPREHENSIVE METABOLIC PANEL Routine 03/17/2025 9:38 AM EDT Multiple sclerosis (HCC) 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) CBC + DIFF Routine 03/17/2025 9:38 AM EDT Multiple sclerosis (HCC) 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) XR CHEST 2V FRONTAL/LAT Routine 03/12/2025 11:23 AM EDT Abnormal pleural fluid EXTERNAL LAB 02/16/2025 12:03 AM EDT EXTERNAL LAB 02/15/2025 7:05 AM EDT EXTERNAL LAB 02/12/2025 2:23 PM EDT BRAIN & CERVICAL SPINE MRI DISCRETE DATA Routine 02/10/2025 3:58 PM EDT MRI THORACIC SPINE WO/W IVCON Routine 02/10/2025 3:58 PM EDT Multiple sclerosis (HCC) 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) MRI CERVICAL SPINE WO/W IVCON Routine 02/10/2025 3:58 PM EDT Multiple sclerosis (HCC) 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) BRAIN & CERVICAL SPINE MRI DISCRETE DATA Routine 02/10/2025 3:57 PM EDT MRI BRAIN WO/W IVCON Routine 02/10/2025 3:57 PM EDT Multiple sclerosis (HCC) 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) EXTERNAL LAB 02/03/2025 3:43 PM EDT HIV 1/2 COMBO WITH REFLEX TO DIFFERENTIATION Routine 2020 11:29 AM EDT Encounter for supervision of normal first in second trimester from Last 3 Months or Most Recently Relevant to Health Maintenance Results * UA DIP,URINE HCG (POC) (04/01/2025 10:20 AM EDT) Only the most recent of2 resultswithin the time period is included. Urine hCG (POCT) Negative Negative [facility] Comment:Location:[facility], [address] [place] [address] , [place], [place], [address] Blast Furnace Tender (POCT) Internal QC OK [facility] 04/01/2025 10:2 0 AM EDT Narrative [facility] POINT OF CARE - 04/01/2025 10:20 AM EDT Location:[facility], [address] [place] [address] , [place], [place], [address] [facility] Provider POC TESTING Final Result Performing Organization Address [facility]/ZIP Co de Phone Number [facility] POINT [facility] CARE [facility] [address] [place], [place] * BLOOD TB SCREEN (03/17/2025 9:38 AM EDT) TB Nil 0.05 <=8.00 IU/mL 03/18/2025 1:21 PM EDT [facility] TB1 Ag minus Nil 0.00 <0.35 IU/mL 03/18/2025 1:21 PM EDT [facility] TB2 Ag minus Nil 0.00 <0.35 IU/mL 03/18/2025 1:21 PM EDT [facility] TB Result Negative 03/18/2025 1:21 PM EDT [facility] Mitogen minus Nil >9.95 >=0.50 IU/mL 03/18/2025 1:21 PM EDT [facility] TB Gamma Interpretation Infection with M. tuberculosis complex is unlikely. If latent tuberculosis infection is highly suspected, a negative result does not rule out the infection. Specimens from immunocompromised patients and those <5 years of age may show false negative results. In case of a contact investigation, please repeat 8-12 weeks after a known exposure. 03/18/2025 1:21 PM EDT [facility] Blood BLOOD SPECIMEN / Unknown Venipuncture / Unknown 03/17/2025 9:38 AM EDT 03/17/2025 10:02 AM EDT us Anya Cast APRN.MANAGEMENT TRAINEE LABORATORY Final Res ult [facility] [address] [address], [place] * VITAMIN D 25 HYDROXY (03/17/2025 9:38 AM EDT) Vitamin D 25 Hydroxy 41.6 31.0 - 80.0 ng/mL 03/17/2025 7:08 PM EDT [facility] Blood BLOOD SPECIMEN / Unknown Venipuncture / Unknown 03/17/2025 9:38 AM EDT 03/17/2025 9:56 AM EDT Anya Cast APRN.MANAGEMENT TRAINEE LABORATORY Final Res ult Performing Organization Address [facility] Co de Phone Number [facility] [address] [place] [address], * VARICELLA ZOSTER IGG (03/17/2025 9:38 AM EDT) Varicella Zoster IgG, Qual Positive Positive 03/17/2025 7:07 PM EDT [facility] Comment:The result suggests recent or past exposure to Varicella-Zoster virus or chickenpox vaccination or zoster vaccination. Positive result may also be seen due to presence of passively-transferred antibodies. Please correlate with patient's history. Blood BLOOD SPECIMEN / Unknown Venipuncture / Unknown 03/17/2025 9:38 AM EDT 03/17/2025 9:56 AM EDT Anya Cast APRN.MANAGEMENT TRAINEE LABORATORY Final Res ult Performing Organization Address [facility] de Phone Number [facility] [address] [place] [address], * THYROID STIMULATING HORMONE (03/17/2025 9:38 AM EDT) TSH 1.280 0.270 - 4.200 mIU/L 03/17/2025 8:40 PM EDT [facility] Comment: If the patient is , TSH reference range varies by gestational period: First Trimester (weeks 9-12): 0.180-2.990 mIU/L Second Trimester: 0.110-3.980 mIU/L Third Trimester: 0.480-4.710 mIU/L Rich Patrick et al. A Practical Approach for the Verifications and Determination of Site- and Trimester-Specific Reference Intervals for Thyroid Function tests in . Thyroid, 2019:29:3:412-420. Vivek E, et al. 2017 Guidelines of the [place] [employer] for the Diagnosis and Management of Thyroid Disease during and the . Thyroid, 2017:27:3:315-389. Blood BLOOD SPECIMEN / Unknown Venipuncture / Unknown 03/17/2025 9:38 AM EDT 03/17/2025 9:56 AM EDT us Anya Cast APRN.CNP LABORATORY Final Res ult [facility] [address] [place] [address], [place] * T4 FREE/FREE THYROXINE (03/17/2025 9:38 AM EDT) Free T4 1.0 0.9 - 1.7 ng/dL 03/17/2025 8:40 PM EDT [facility] Blood BLOOD SPECIMEN / Unknown Venipuncture / Unknown 03/17/2025 9:38 AM EDT 03/17/2025 9:56 AM EDT Anya Cast APRN.MANAGEMENT TRAINEE LABORATORY Final Res ult Performing Organization Address City/[facility]/ZIP Co de Phone Number [facility] [address] [place] [address], [place] * T3 (03/17/2025 9:38 AM EDT) T3 93 79 - 165 ng/dL 03/17/2025 8:40 PM EDT [facility] Blood BLOOD SPECIMEN / Unknown Venipuncture / Unknown 03/17/2025 9:38 AM EDT 03/17/2025 9:56 AM EDT us Anya Cast APRN.CNP LABORATORY Final Res ult [facility] [address] [place] [id number], [place] * IMMUNOGLOBULIN M (03/17/2025 9:38 AM EDT) IgM 165 40 - 230 mg/dL 03/17/2025 6:36 PM EDT [facility] Blood BLOOD SPECIMEN / Unknown Venipuncture / Unknown 03/17/2025 9:38 AM EDT 03/17/2025 9:56 AM EDT Anya Cast APRN.MANAGEMENT TRAINEE LABORATORY Final Res ult [facility] [address] [facility] [place] [id number], [place] * IMMUNOGLOBULIN G (03/17/2025 9:38 AM EDT) IgG 1,249 700 - 1,600 mg/dL 03/17/2025 6:36 PM EDT [facility] Blood BLOOD SPECIMEN / Unknown Venipuncture / Unknown 03/17/2025 9:38 AM EDT 03/17/2025 9:56 AM EDT Anya Cast APRN.MANAGEMENT TRAINEE LABORATORY Final Res ult [facility] [address] [address], [place] * HEPATITIS B SURFACE ANTIGEN (03/17/2025 9:38 AM EDT) HBsAg Negative Negative 03/17/2025 7:26 PM EDT [facility] Blood BLOOD SPECIMEN / Unknown Venipuncture / Unknown 03/17/2025 9:38 AM EDT 03/17/2025 9:56 AM EDT us Anya Cast APRN.MANAGEMENT TRAINEE LABORATORY Final Res ult [facility] [address] [address], [place] * HEPATITIS B SURFACE ANTIBODY (03/17/2025 9:38 AM EDT) Hep B Surface Ab, Qual Positive 03/17/2025 7:31 PM EDT [facility] Comment:Consistent with sero logical evidence of immunity to Hepatitis B Virus. Hep B Surface Ab Quant 416.33 mIU/mL 03/17/2025 7:31 PM EDT [facility] Comment: <8 mIU/mL: No serological evidence of immunity to Hepatitis B Virus. >/= 8 to <12 mIU/mL: No serological evidence of immunity to Hepatitis B Virus. >/= 12 mIU/mL: Consistent with serological evidence of immunity to Hepatitis B Virus. Blood BLOOD SPECIMEN / Unknown Venipuncture / Unknown 03/17/2025 9:38 AM EDT 03/17/2025 9:56 AM EDT Anya Cast APRN.MANAGEMENT TRAINEE LABORATORY Final Res ult Performing Organization Address [facility] Co de Phone Number [facility] [place] [address], [place] * HEPATITIS B CORE ANTIBODY TOTAL (03/17/2025 9:38 AM EDT) [facility] Hepatitis B Core Ab, Total Negative Negative 03/17/2025 7:30 PM EDT [facility] Comment:No evidence of curre nt or past infection with Hepatitis B virus. Should recent infection be suspected, repeat testing may be considered 3-4 weeks after this draw. Blood BLOOD SPECIMEN / Unknown Venipuncture / Unknown 03/17/2025 9:38 AM EDT 03/17/2025 9:56 AM EDT Anya Cast APRN.MANAGEMENT TRAINEE LABORATORY Final Res ult Performing Organization Address City/[facility] Co de Phone Number [facility] [address] [place] [address], * (ABNORMAL) COMPREHENSIVE METABOLIC PANEL (03/17/2025 9:38 AM EDT) Protein, Total 7.2 6.3 - 8.0 g/dL 03/17/2025 10:[address] [facility] Albumin 4.4 3.9 - 4.9 g/dL 03/17/2025 10:[address] [facility] Calcium, Total 9.7 8.5 - 10.2 mg/dL 03/17/2025 10:[address] [facility] Bilirubin, Total 0.4 0.2 - 1.3 mg/dL 03/17/2025 10:[address] [facility] Alkaline Phosphatase 96 34 - 123 U/L 03/17/2025 10:[address] [facility] AST 18 13 - 35 U/L 03/17/2025 10:[address] [facility] ALT 18 7 - 38 U/L 03/17/2025 10:[address] [facility] Glucose 100(H) 74 - 99 mg/dL 03/17/2025 10:[address] [facility] Comment: The [place] Diabetes Association (ADA) provides guidance for cutoff [...] Standards of Medical Care in Diabetes 2016, [place] [employer]. Diabetes Care. 2016.39(Suppl 1). BUN 18 7 - 21 mg/dL 03/17/2025 10:[address] [facility] Creatinine 0.78 0.58 - 0.96 mg/dL 03/17/2025 10:[address] [facility] Sodium 144 136 - 144 mmol/L 03/17/2025 10:37 AM EDT [facility] Potassium 3.6(L) 3.7 - 5.1 mmol/L 03/17/2025 10:37 AM EDT [facility] Chloride 108(H) 98 - 107 mmol/L 03/17/2025 10:37 AM EDT [facility] CO2 23 22 - 30 mmol/L 03/17/2025 10:37 AM EDT [facility] Anion Gap 13 8 - 15 mmol/L 03/17/2025 10:37 AM EDT [facility] Estimated Glomerular Filtration Rate 99 >=60 mL/min/1. 73m 03/17/2025 10:37 AM EDT [facility] Comment:Estimated Glomerular Filtration Rate (eGFR) is calculated using the 2020 CKD-EPI creatinine equation. This equation utilizes serum creatinine, sex, and age as parameters. The creatinine assay has traceable calibration to isotope dilution- mass spectrometry. Refer to KDIGO guidelines for clinical interpretation. In patients with unstable renal function, e.g. those with acute kidney injury, the eGFR may not accurately reflect actual GFR. Blood BLOOD SPECIMEN / Unknown Venipuncture / Unknown 03/17/2025 9:38 AM EDT 03/17/2025 9:56 AM EDT us Anya Cast LEAD TECHNICAL ARCHITECT.MANAGEMENT TRAINEE LABORATORY Final Res ult [facility] [address] [place] [id number] * COMPLETE BLOOD COUNT AND DIFFERENTIAL (03/17/2025 9:38 AM EDT) WBC 7.01 3.70 - 11.00 k/uL 03/17/2025 9:59 AM EDT [facility] RBC 5.10 3.90 - 5.20 m/uL 03/17/2025 9:59 AM EDT [facility] Hemoglobin 13.3 11.5 - 15.5 g/dL 03/17/2025 9:59 AM EDT [facility] Hematocrit 41.8 36.0 - 46.0 % 03/17/2025 9:59 AM EDT [facility] MCV 82.0 80.0 - 100.0 fL 03/17/2025 9:59 AM EDT [facility] MCH 26.1 26.0 - 34.0 pg 03/17/2025 9:59 AM EDT [facility] MCHC 31.8 30.5 - 36.0 g/dL 03/17/2025 9:59 AM EDT [facility] RDW-CV 14.0 11.5 - 15.0 % 03/17/2025 9:59 AM EDT [facility] Platelet Count 202 150 - 400 k/uL 03/17/2025 9:59 AM EDT [facility] MPV 12.5 9.0 - 12.7 fL 03/17/2025 9:59 AM EDT [facility] Neutrophils % 65.4 % 03/17/2025 9:59 AM EDT [facility] Abs Neut 4.58 1.45 - 7.50 k/uL 03/17/2025 9:59 AM EDT [facility] Lymphocytes % 23.5 % 03/17/2025 9:59 AM EDT [facility] Abs Lymph 1.65 1.00 - 4.00 k/uL 03/17/2025 9:59 AM EDT [facility] Monocytes % 9.0 % 03/17/2025 9:59 AM EDT [facility] Abs [place] 0.63 <0.87 k/uL 03/17/2025 9:59 AM EDT [facility] Eosinophils % 1.1 % 03/17/2025 9:59 AM EDT [facility] Abs Eosin 0.08 <0.46 k/uL 03/17/2025 9:59 AM EDT [facility] Basophils % 0.7 % 03/17/2025 9:59 AM EDT [facility] Abs Baso 0.05 <0.11 k/uL 03/17/2025 9:59 AM EDT [facility] Immature Granulocytes % 0.3 % 03/17/2025 9:59 AM EDT [facility] Abs Immature Gran <0.03 <0.10 k/uL 025 9:59 AM EDT [facility] NRBC 0.0 /100 WBC 03/17/2025 9:59 AM EDT [facility] Absolute nRBC <0.01 <0.01 k/uL 03/17/2025 9:59 AM EDT [facility] Diff Type Auto 03/17/2025 9:59 AM EDT [facility] Blood BLOOD SPECIMEN / Unknown Venipuncture / Unknown 03/17/2025 9:38 AM EDT 03/17/2025 9:56 AM EDT us Anya Cast LEAD TECHNICAL ARCHITECT.MANAGEMENT TRAINEE LABORATORY Final Res ult [facility] [address] [place] [address] * HEPATITIS C ANTIBODY IA WITH CONFIRMATION (03/17/2025 9:38 AM EDT) Hep C Antibody IA Negative Negative 03/17/2025 7:08 PM EDT [facility] Comment:The result suggests no evidence of infection with Hepatitis C virus. Should recent infection be suspected, repeat testing may be considered 4-6 weeks after this draw. Blood BLOOD SPECIMEN / Unknown Venipuncture / Unknown 03/17/2025 9:38 AM EDT 03/17/2025 9:56 AM EDT us Anya Cast LEAD TECHNICAL ARCHITECT.MANAGEMENT TRAINEE LABORATORY Final Res ult [facility] [address] [facility] [address] [place] [id number], [place] * XR CHEST 2V FRONTAL/LAT (03/12/2025 11:23 AM EDT) Anatomical Region Laterality Modality Chest Other 03/12/2025 11:2 3 AM EDT Impressions 03/14/2025 8:38 AM EDT IMPRESSION: No acute radiographic abnormality. Tank Driver: ANGEL Transcribe Date/Time: Mar 14 2025 7:48A Dictated by : NO NOLEN MD This examination was interpreted and the report reviewed and electronically signed by: NO NOLEN MD on Mar 14 2025 8:36AM EST Narrative 03/14/2025 8:38 AM EDT * * *Final Report* * * DATE OF EXAM: Mar 12 2025 11:23AM [id number] - XR CHEST 2V FRONTAL/LAT / PROCEDURE REASON: Abnormal pleural fluid * * * * Physician Interpretation * * * * EXAMINATION: CHEST RADIOGRAPH (2 VIEW FRONTAL & LATERAL) CLINICAL HISTORY: Abnormal pleural fluid MQ: [id number] EXAM DATE/TIME: 03/12/2025 11:23 AM COMPARISON: None. Correlation is made to prior MRI examination of the thoracic spine dated 02/10/2025. RESULT: Lines, tubes, and devices: None. Lungs and pleura: No consolidation. No lung mass. No pleural effusion. No pneumothorax. Cardiomediastinal silhouette: Normal cardiomediastinal silhouette. Bones and soft tissues: Unremarkable. Procedure Note Provider, [facility] [place] - 03/14/2025 * * *Final Report* * * DATE OF EXAM: Mar 12 2025 11:23AM [id number] - XR CHEST 2V FRONTAL/LAT / PROCEDURE REASON: Abnormal pleural fluid * * * * Physician Interpretation * * * * EXAMINATION: CHEST RADIOGRAPH (2 VIEW FRONTAL & LATERAL) CLINICAL HISTORY: Abnormal pleural fluid MQ: [id number] EXAM DATE/TIME: 03/12/2025 11:23 AM COMPARISON: None. Correlation is made to prior MRI examination of the thoracic spine dated 02/10/2025. RESULT: Lines, tubes, and devices: None. Lungs and pleura: No consolidation. No lung mass. No pleural effusion. No pneumothorax. Cardiomediastinal silhouette: Normal cardiomediastinal silhouette. Bones and soft tissues: Unremarkable. IMPRESSION IMPRESSION: No acute radiographic abnormality. Tank Driver: PSCB Transcribe Date/Time: Mar 14 2025 7:48A Dictated by : NO NOLEN MD This examination was interpreted and the report reviewed and electronically signed by: NO NOLEN MD on Mar 14 2025 8:36AM EST Rashard Lane MD RAD-PAMA Final Result * EXTERNAL LAB (02/16/2025 12:03 AM EDT) Only the most recent of4 resultswithin the time period is included. us External Provider PA-C LABORATORY Final Res ult * MRI THORACIC SPINE WO/W IVCON (02/10/2025 3:58 PM EDT) Anatomical Region Laterality Modality T-spine Magnetic Resonan ce 02/10/2025 3:58 PM EDT Impressions 02/11/2025 8:18 AM EDT IMPRESSION: 1. New trace bilateral pleural fluid. 2. No interval change in coarse signal abnormality throughout the thoracic cord without abnormal enhancement in keeping with the known multiple sclerosis. Transcribe Date/Time: Feb 11 2025 8:12A Dictated by: DOMINIC HUMPHRIES MD This examination was interpreted and the report reviewed and electronically signed by: DOMINIC HUMPHRIES MD on Feb 11 2025 8:16AM EST Thank you for allowing us to participate in the care of your patient. Should there be any questions regarding this interpretation, please call . If you are unable to reach us at the number above, please feel free to contact [facility] at [phone]. Narrative 02/11/2025 8:18 AM EDT * * *Final Report* * * DATE OF EXAM: Feb 10 2025 3:58PM [facility] 0326 - MRI THORACIC SPINE WO/W IVCON / PROCEDURE REASON: multiple diagnoses * * * * Physician Interpretation * * * * RESULT: HISTORY: 39-year-old, multiple sclerosis. TECHNIQUE: Routine MR imaging through the thoracic spine is performed both prior to and following the intravenous administration of 6 cc's of Elucirem. Comparison is made to a study 01/19/2024. RESULT: Counting reference: Craniocervical junction. Anatomic Variants: None. Sagittal images reveal normal height, alignment, and bone marrow signal intensity in the thoracic vertebral bodies. The intervertebral disc spaces are maintained in height. There is again visualized T2 hyperintensity throughout the entire thoracic cord in keeping with the known multiple sclerosis. This is in a pattern similar to the prior study. Following IV contrast administration, no abnormal enhancement within the substance of the spinal cord nor the epidural space is seen. There is trace bilateral pleural fluid which is a new finding when compared to the prior study. There are no prevertebral masses. Axial images at all levels surveyed in this examination reveal no focal herniation nor bulging of disc material. No spinal stenosis nor cord compression are seen. The neural foramina are patent. Procedure Note Provider, [facility] - 02/11/2025 * * *Final Report* * * DATE OF EXAM: Feb 10 2025 3:58PM [facility] 0326 - MRI THORACIC SPINE WO/W IVCON / PROCEDURE REASON: multiple diagnoses * * * * Physician Interpretation * * * * RESULT: HISTORY: 39-year-old, multiple sclerosis. TECHNIQUE: Routine MR imaging through the thoracic spine is performed both prior to and following the intravenous administration of 6 cc's of Elucirem. Comparison is made to a study 01/19/2024. RESULT: Counting reference: Craniocervical junction. Anatomic Variants:None. Sagittal images reveal normal height, alignment, and bone marrow signal intensity in the thoracic vertebral bodies. The intervertebral disc spaces are maintained in height. There is again visualized T2 hyperintensity throughout the entire thoracic cord in keeping with the known multiple sclerosis. This is in a pattern similar to the prior study. Following IV contrast administration, no abnormal enhancement within the substance of the spinal cord nor the epidural space is seen. There is trace bilateral pleural fluid which is a new finding when compared to the prior study. There are no prevertebral masses. Axial images at all levels surveyed in this examination reveal no focal herniation nor bulging of disc material. No spinal stenosis nor cord compression are seen. The neural foramina are patent. IMPRESSION IMPRESSION: 1. New trace bilateral pleural fluid. 2. No interval change in coarse signal abnormality throughout the thoracic cord without abnormal enhancement in keeping with the known multiple sclerosis. Transcribe Date/Time: Feb 11 2025 8:12A Dictated by: DOMINIC HUMPHRIES MD This examination was interpreted and the report reviewed and electronically signed by: DOMINIC HUMPHRIES MD on Feb 11 2025 8:16AM EST Thank you for allowing us to participate in the care of your patient. Should there be any questions regarding this interpretation, please call. If you are unable to reach us at the number above, please feel [facility] at [phone]. us Anya Cast LEAD TECHNICAL ARCHITECT.MANAGEMENT TRAINEE MRI-PAMA Final Res ult * MRI CERVICAL SPINE WO/W IVCON (02/10/2025 3:58 PM EDT) Anatomical Region Laterality Modality C-spine Magnetic Resonan ce 02/10/2025 3:58 PM EDT Impressions 02/11/2025 8:14 AM EDT IMPRESSION: Multiple intracranial white matter lesions compatible with multiple sclerosis. No new T2 lesions and no new enhancing lesions. No significant parenchymal volume loss. Other Significant Intracranial Findings: None Moderate demyelinating disease in the cervical and upper thoracic spinal cord. No new T2 intramedullary lesions and no new enhancing intramedullary lesions. No significant volume loss of the upper spinal cord for age. Other Significant Cervical Spine Findings: No significant cervical canal or foraminal stenosis. Cervical Anatomic Variant: None. Assume 7 cervical vertebrae with counting from the craniocervical junction. Transcribe Date/Time: Feb 11 2025 8:05A Dictated by: DOMINIC HUMPHRIES MD This examination was interpreted and the report reviewed and electronically signed by: DOMINIC HUMPHRIES MD on Feb 11 2025 8:12AM EST Thank you for allowing us to participate in the care of your patient. Should there be any questions regarding this interpretation, please call . If you are unable to reach us at the number above, please feel free to contact [facility] at [phone]. Narrative 02/11/2025 8:14 AM EDT * * *Final Report* * * DATE OF EXAM: Feb 10 2025 3:58PM [facility] 0298 - MRI CERVICAL SPINE WO/W IVCON / PROCEDURE REASON: multiple diagnoses * * * * Physician Interpretation * * * * RESULT: EXAMINATION: MRI BRAIN WO/W IVCON, MRI CERVICAL SPINE WO/W IVCON HISTORY: Multiple sclerosis. Routine follow-up TECHNIQUE: Brain MRI with demyelinating disease protocol with and without gadolinium. Routine cervical spine protocol with and without gadolinium. MQ: [id number]_3 Contrast: 6ml mL Elucirem IV COMPARISON: 01/02/2023. RESULT: MR BRAIN: Parenchymal Findings: There are multiple foci of hyperintensity on FLAIR and T2 within the white matter, compatible with the clinical diagnosis of multiple sclerosis. New T2 Lesions: None Site(s) of New/Larger T2 Lesion(s): Not applicable Interval Improvement: None. New Enhancing Lesions: None T2 [place] of Disease: Mild. Parenchymal Volume Loss: None. Other Significant Findings: None. MR CERVICAL: Counting reference: Craniocervical junction. Anatomic Variants: None. Alignment: Alignment is anatomic. Craniocervical Junction: Craniocervical junction is normal. Cord Findings: There is patchy increased T2 and gradient echo signal intensity scattered throughout the cervical spinal cord in keeping with the known multiple sclerosis. The lesions are stable in size, number, and distribution. There is no abnormal enhancement within the substance of the spinal cord nor the epidural space. Cord T2 Plaque [place]: Moderate. New T2 Lesions: None Interval Cord Improvement: [...] by greater than or equal to 2mm). Procedure Note Provider, [facility] - 02/11/2025 * * *Final Report* * * DATE OF EXAM: Feb 10 2025 3:58PM [facility] 0298 - MRI CERVICAL SPINE WO/W IVCON / PROCEDURE REASON: multiple diagnoses * * * * Physician Interpretation * * * * RESULT: EXAMINATION: MRI BRAIN WO/W IVCON, MRI CERVICAL SPINE WO/WIVCON HISTORY: Multiple sclerosis. Routine follow-up TECHNIQUE: Brain MRI with demyelinating disease protocol with and without gadolinium. Routine cervical spine protocol with and without gadolinium. MQ: [id number]_3 Contrast: 6ml mL Elucirem IV COMPARISON: 01/02/2023. RESULT: MR BRAIN: Parenchymal Findings: There are multiple foci of hyperintensity on FLAIR and T2 within the white matter, compatible with the clinical diagnosis of multiple sclerosis. New T2 Lesions: None Site(s) of New/Larger T2 Lesion(s): Not applicable Interval Improvement: None. New Enhancing Lesions: None T2 [place] of Disease: Mild. Parenchymal Volume Loss: None. Other Significant Findings: None. MR CERVICAL: Counting reference: Craniocervical junction. Anatomic Variants:None. Alignment: Alignment is anatomic. Craniocervical Junction: Craniocervical junction is normal. Cord Findings: There is patchy increased T2 and gradient echo signal intensity scattered throughout the cervical spinal cord in keeping with the known multiple sclerosis. The lesions are stable in size, number, and distribution. There is no abnormal enhancement within the substance of the spinal cord nor the epidural space. Cord T2 Plaque [place]: Moderate. New T2 Lesions: None Interval Cord Improvement: [...] volume loss. Other Significant Intracranial Findings: None Moderate demyelinating disease in the cervical and upper thoracic spinal cord. No new T2 intramedullary lesions and no new enhancing intramedullary lesions. No significant volume loss of the upper spinal cord for age. Other Significant Cervical Spine Findings: No significant cervical canal or foraminal stenosis. Cervical Anatomic Variant: None. Assume 7 cervical vertebrae with counting from the craniocervical junction. Transcribe Date/Time: Feb 11 2025 8:05A Dictated by: DOMINIC HUMPHRIES MD This examination was interpreted and the report reviewed and electronically signed by: DOMINIC HUMPHRIES MD on Feb 11 2025 8:12AM EST Thank you for allowing us to participate in the care of your patient. Should there be any questions regarding this interpretation, please call. If you are unable to reach us at the number above, please feel free to contact [facility] at [phone]. Anya Cast LEAD TECHNICAL ARCHITECT.MANAGEMENT TRAINEE MRI-PAMA Final Res ult * BRAIN & CERVICAL SPINE MRI DISCRETE DATA (02/10/2025 3:58 PM EDT) Cervical Spine T2 [place] of Disease Moderate. DIVISION OF RADIOLOGY Cervical Spine New T2 Lesions None DIVISION OF RADIOLOGY Cervical spine enhancing lesions None DIVISION OF RADIOLOGY Brain New T2 Lesions None Site DIVISION OF RADIOLOGY Brain Interval Improvement None DIVISION OF RADIOLOGY Brain Enhancing Lesions None DIVISION OF RADIOLOGY Brain T2 [place] of Disease Mild DIVISION OF RADIOLOGY Brain Parenchymal Volume Loss None [facility]ISION OF RADIOLOGY Brain Other Significant MRI Findings None. DIVISION OF RADIOLOGY Anatomical Region Laterality Modality Magnetic Resonan ce 02/10/2025 3:58 PM EDT [facility] Provider MRI Final Result * MRI BRAIN WO/W IVCON (02/10/2025 3:57 PM EDT) Anatomical Region Laterality Modality Head Magnetic Resonan ce 02/10/2025 3:57 PM EDT Impressions 02/11/2025 8:14 AM EDT IMPRESSION: Multiple intracranial white matter lesions compatible with multiple sclerosis. No new T2 lesions and no new enhancing lesions. No significant parenchymal volume loss. Other Significant Intracranial Findings: None Moderate demyelinating disease in the cervical and upper thoracic spinal cord. No new T2 intramedullary lesions and no new enhancing intramedullary lesions. No significant volume loss of the upper spinal cord for age. Other Significant Cervical Spine Findings: No significant cervical canal or foraminal stenosis. Cervical Anatomic Variant: None. Assume 7 cervical vertebrae with counting from the craniocervical junction. Transcribe Date/Time: Feb 11 2025 8:05A Dictated by: DOMINIC HUMPHRIES MD This examination was interpreted and the report reviewed and electronically signed by: DOMINIC HUMPHRIES MD on Feb 11 2025 8:12AM EST Thank you for allowing us to participate in the care of your patient. Should there be any questions regarding this interpretation, please call . If you are unable to reach us at the number above, please feel free to contact [facility] at [phone]. Narrative 02/11/2025 8:14 AM EDT * * *Final Report* * * DATE OF EXAM: Feb 10 2025 3:57PM [facility] 0295 - MRI BRAIN WO/W IVCON / PROCEDURE REASON: multiple diagnoses * * * * Physician Interpretation * * * * RESULT: EXAMINATION: MRI BRAIN WO/W IVCON, MRI CERVICAL SPINE WO/W IVCON HISTORY: Multiple sclerosis. Routine follow-up TECHNIQUE: Brain MRI with demyelinating disease protocol with and without gadolinium. Routine cervical spine protocol with and without gadolinium. MQ: [id number] Contrast: 6ml mL Elucirem IV COMPARISON: 01/02/2023. RESULT: MR BRAIN: Parenchymal Findings: There are multiple foci of hyperintensity on FLAIR and T2 within the white matter, compatible with the clinical diagnosis of multiple sclerosis. New T2 Lesions: None Site(s) of New/Larger T2 Lesion(s): Not applicable Interval Improvement: None. New Enhancing Lesions: None T2 [place] of Disease: Mild. Parenchymal Volume Loss: None. Other Significant Findings: None. MR CERVICAL: Counting reference: Craniocervical junction. Anatomic Variants: None. Alignment: Alignment is anatomic. Craniocervical Junction: Craniocervical junction is normal. Cord Findings: There is patchy increased T2 and gradient echo signal intensity scattered throughout the cervical spinal cord in keeping with the known multiple sclerosis. The lesions are stable in size, number, and distribution. There is no abnormal enhancement within the substance of the spinal cord nor the epidural space. Cord T2 Plaque [place]: Moderate. New T2 Lesions: None Interval Cord Improvement: [...] by greater than or equal to 2mm). Procedure Note Provider, [facility] [place] - 02/11/2025 * * *Final Report* * * DATE OF EXAM: Feb 10 2025 3:57PM [facility] [id number] - MRI BRAIN WO/W IVCON / PROCEDURE REASON: multiple diagnoses * * * * Physician Interpretation * * * * RESULT: EXAMINATION: MRI BRAIN WO/W IVCON, MRI CERVICAL SPINE WO/WIVCON HISTORY: Multiple sclerosis. Routine follow-up TECHNIQUE: Brain MRI with demyelinating disease protocol with and without gadolinium. Routine cervical spine protocol with and without gadolinium. MQ: [id number] Contrast: 6ml mL Elucirem IV COMPARISON: 01/02/2023. RESULT: MR BRAIN: Parenchymal Findings: There are multiple foci of hyperintensity on FLAIR and T2 within the white matter, compatible with the clinical diagnosis of multiple sclerosis. New T2 Lesions: None Site(s) of New/Larger T2 Lesion(s): Not applicable Interval Improvement: None. New Enhancing Lesions: None T2 [place] of Disease: Mild. Parenchymal Volume Loss: None. Other Significant Findings: None. MR CERVICAL: Counting reference: Craniocervical junction. Anatomic Variants:None. Alignment: Alignment is anatomic. Craniocervical Junction: Craniocervical junction is normal. Cord Findings: There is patchy increased T2 and gradient echo signal intensity scattered throughout the cervical spinal cord in keeping with the known multiple sclerosis. The lesions are stable in size, number, and distribution. There is no abnormal enhancement within the substance of the spinal cord nor the epidural space. Cord T2 Plaque [place]: Moderate. New T2 Lesions: None Interval Cord Improvement: [...] volume loss. Other Significant Intracranial Findings: None Moderate demyelinating disease in the cervical and upper thoracic spinal cord. No new T2 intramedullary lesions and no new enhancing intramedullary lesions. No significant volume loss of the upper spinal cord for age. Other Significant Cervical Spine Findings: No significant cervical canal or foraminal stenosis. Cervical Anatomic Variant: None. Assume 7 cervical vertebrae with counting from the craniocervical junction. Transcribe Date/Time: Feb 11 2025 8:05A Dictated by: DOMINIC HUMPHRIES MD This examination was interpreted and the report reviewed and electronically signed by: DOMINIC HUMPHRIES MD on Feb 11 2025 8:12AM EST Thank you for allowing us to participate in the care of your patient. Should there be any questions regarding this interpretation, please call. If you are unable to reach us at the number above, please feel free to contact [facility] eRadiology at [phone]. Anya Cast LEAD TECHNICAL ARCHITECT.MANAGEMENT TRAINEE MRI-PAMA Final Res ult * BRAIN & CERVICAL SPINE MRI DISCRETE DATA (02/10/2025 3:57 PM EDT) Pathologist [facility] Cervical Spine T2 [place] of Disease Moderate. DIVISION OF RADIOLOGY Cervical Spine New T2 Lesions None DIVISION OF RADIOLOGY Cervical spine enhancing lesions None DIVISION OF RADIOLOGY Brain New T2 Lesions None Site DIVISION OF RADIOLOGY Brain Interval Improvement None DIVISION OF RADIOLOGY Brain Enhancing Lesions None DIVISION OF RADIOLOGY Brain T2 [place] of Disease Mild DIVISION OF RADIOLOGY Brain Parenchymal Volume Loss None DIVISION OF RADIOLOGY Brain Other Significant MRI Findings None. DIVISION OF RADIOLOGY Anatomical Region Laterality Modality Magnetic Resonan ce 02/10/2025 3:57 PM EDT [facility] Provider MRI Final Result * HIV 1 2 COMBO(AG/AB),WITH REFLEX TO DIFFERENTIATION (2020 11:29 AM EDT) HIV 12 Combo (Ag/Ab) Non Reactive Non Reactive 08/05/2020 9:42 AM EDT [facility] HIV-1/2 AB Test Not Indicated 08/05/2020 9:42 AM EDT [facility] HIV Interpretation Negative 08/05/2020 9:42 AM EDT [facility] Comment: No evidence of HIV-1 or HIV-2 infection. Should recent infection be suspected, repeat testing may be considered 2-3 weeks after this draw. HIV Information: [place] Rev. Code 3701.243(E): This information has been disclosed to you from confidential records protected from disclosure by state law. You shall make no further disclosure of this information without the specific, written, and informed release of the individual to whom it pertains or as otherwise permitted by state law. A general authorization for the release of medical or other information is not sufficient for the purpose of the release of HIV test results or diagnoses. Blood BLOOD SPECIMEN / Unknown 2020 11:29 AM EDT 2020 11:31 AM EDT us Lala Forman DO LABORATORY Final Res ult [facility] [address] [place] [address] [facility] [address] [place] [address] from Last 3 Months or Most Recently Relevant to Health Maintenance Additional Health Concerns Active Problems Noted Date Diagnosed Date Sleep Efficiency 07/08/2024 Insurance [place]ICAID [place] Member Subscriber Plan / Payer (Ef fective 2020-Present) Name:Smooth Martinez Relation to Subscriber:Self Name:Smooth Martinez Payer ID:Not on file Group ID:Not on file Type:Medicaid Address: [address] DUAL COMPLETE HMO POS SNP Care Teams Potato Chip Fryer Relationship Specialty Start Date End Date Rashard Lane MD [address] [place] [address] PCP - General Family Medicine 12/09/19 Juan Miguel Caballero [facility] 05/30/24 Olimpia Turpin, LEAD TECHNICAL ARCHITECT.MANAGEMENT TRAINEE [address] [place] [address] Veterans Adviser Family Medicine 10/18/24
--- OUTSIDE RECORDS SUMMARY | 2025-04-11 15:10 | XMS_ITS | Encounter Summary ---
Author Organization [facility] Address [address] [place] [address] Care Team Providers Care Stunt Driver Name Role Phone Milton Earl MD Primary Care Provider [phone] Encounter Details Date Type Department Care Team (Late st Contact Info) Description 08/19/2017 FollowUp Telephone Encounter [facility] [address] [place] [address] [address] [place], [place] [address] Elizabeth Cotton Social History Tobacco Use Types Packs/Day Years Used Date Smoking Tobacco: Never Smokeless Tobacco: Never Alcohol Use Standard Drinks/Week Comments Yes 0 (1 standard drink = 0.6 oz pur e alcohol) Occ Comments No Sex and Gender Information Value Date Recorded Sex Assigned at Not on file Legal Sex Female 6:58 AM EST Gender Identity Not on file Sexual Orientation Not on file documented as of this encounter Progress Notes * Elizabeth Cotton - 08/19/2017 10:01 AM CDT Patient called and confirmed her sleep study appointment for dulce. documented in this encounter Plan of Treatment Not on file documented as of this encounter Visit Diagnoses Not on filedocumented in this encounter Care Teams Stunt Driver Relationship Specialty Start Date End Date Milton Earl MD PCP - General Family Medicine 09/30/15 04/20/23 documented as of this encounter
--- OUTSIDE RECORDS SUMMARY | 2025-04-11 15:10 | XMS_ITS | Encounter Summary ---
Author Organization [facility] Address [address] [place] [address] Care Team Providers Care Parts Professional Name Role Phone Rashard Lane MD Primary Care Provider [phone] Juan Miguel Caballero [facility] Unavailable Unavailable Olimpia Turpin BARBER SHOP OPERATOR.CRUSHER FOREMAN Unavailable [phone] Maricruz Valdovinos PA-C Unavailable [phone] Source Comments In the event this information is protected by the Federal Confidentiality of Alcohol and Drug AbusePatient Records regulations: The Federal rules restrict any use of the information to criminally investigate or prosecute any alcohol or drug abuse patient.[facility] Encounter Details Date Type Department Care Team (Late st Contact Info) Description 07/24/2022 Patient Msg Internal Medicine [address] [place] [address] Provider, [facility] Appointments Social History Tobacco Use Types Packs/Day Years Used Date Smoking Tobacco: Never Smokeless Tobacco: Never Alcohol Use Standard Drinks/Week Comments Not Currently 0 (1 standard drink = 0.6 oz pur e alcohol) occas PHQ-2 Answer Date Recorded PHQ-2 score 0 02/08/2021 [place] Depression Scale Answer Date Recorded [place] Depression Scale Total 1 10/30/2020 The thought of harming myself has occurred to me . Never 10/30/2020 Area Deprivation Index Answer Date Ger rded National Score (1-100), lower number is lower ri sk 59 03/29/2022 State Score (1-10), lower number is lower risk N ot on file 03/29/2022 Data from: https://www.neighborhoodatlas.medicine.[facility]/. Last address used for calculation [address] 03/29/2022 Education Answer Date Recorded What is the [...] Orientation Straight 12/23/2020 1: 00 AM EST COVID-19 Exposure Response Date Recorded In the last 10 days, have yo u been in contact with someone who was confirmed or suspected to have Coronavirus/COVID-19? No / Unsure 07/23/2022 8:31 AM EDT documented as of this encounter Functional Status [...] AM EDT Specialty [facility]acy [facility] [address] [place] [address] Drive [address] [place] [address] Pharmacist, [facility] [address] [place] [address] [place] [address] refill - glatiramer MWF--lvm 03/29,04/08(wamb) 05/23/2025 1:30 PM EDT Office Visit [facility] Ophthalmology [address] [address] Maulik Toney, [address] [place] [address] optic neuritis and MS 07/20/2025 12:00 PM EDT Office Visit Family Medicine [facility] [address] [place] [address] MD [address] [place] [address] physical 09/30/2025 9:00 AM [facility] Hematology/Oncology [address] [place] [address] [place] [address] OCREVUS documented as of this encounter Visit Diagnoses Not on filedocumented in this encounter Additional Health Concerns Infection Onset Date Last Indicated Resolved Time COVID-19 Rule-Out 02/12/2023 02/12/2023 02/13/2023 1:49 AM EDT COVID-19 Confirmed 02/12/2023 02/12/2023 04/15/202 3 8:51 PM EDT documented as of this encounter Care Teams Parts Professional Relationship Specialty Start Date End Date Rashard Lane MD [address] [place] [address] PCP - General Family Medicine 12/09/19 Juan Miguel Caballero [facility] 05/30/24 Olimpia Turpin, BARBER SHOP OPERATOR.[facility] [address] [place] [address] Manager Customer Service Family Medicine 10/18/24 Maricruz Valdovinos PA-C [address] [place] [address] Manager Customer Service Internal Medicine 10/18/24 11/11/24 documented as of this encounter
--- OUTSIDE RECORDS SUMMARY | 2025-04-11 15:10 | XMS_ITS | Encounter Summary ---
Author Organization [facility] Address [address] [place] [address] Care Team Providers Care Polysilicon Preparation Worker Name Role Phone Rashard Lane MD Primary Care Provider [phone] Juan Miguel Caballero [facility] Unavailable Unavailable Olimpia Turpin SALES AND MARKETING ASSOCIATE.SUPERVISOR ESTIMATOR AND DRAFTER Unavailable [phone] Maricruz Valdovinos PA-C Unavailable [phone] Source Comments In the event this information is protected by the Federal Confidentiality of Alcohol and Drug AbusePatient Records regulations: The Federal rules restrict any use of the information to criminally investigate or prosecute any alcohol or drug abuse patient.[facility] Encounter Details Date Type Department Care Team (Late st Contact Info) Description 03/05/2024 Patient Msg Neurology [address] [place] [address] Provider, Ccf actigraphy watch Social History Tobacco Use Types Packs/Day Years [...] often do you attend chur ch or uatsdin services? Never 12/16/2022 Do you belong to any clubs o r organizations such as latter day groups, unions, fraternal or athletic groups, or [...] PHQ-2 Answer Date Recorded PHQ-2 score 0 01/21/2024 [facility] of Occupat ional Health - [...] place to sleep or slept in a mcfp (including now)? No 12/16/2022 [place] Depression Scale Answer Date Recorded [place] Depression Scale Total 1 10/30/2020 The thought of harming myself has occurred to me . Never 10/30/2020 Area Deprivation Index Answer Date Ger rded National Score (1-100), lower number is lower ri sk 93 07/17/2023 State Score (1-10), lower number is lower risk 9 07/17/2023 Data from: https://www.neighborhoodatlas.medicine.[facility].edu/. Last address used for calculation [address] [...] AM EDT Specialty Pharmacy [facility] [address] [place], [place] [address] [place] [address] Pharmacist, [facility] [address] [place] [address] refill - glatiramer MWF--lvm 03/29,04/08([facility]) 05/23/2025 1:30 PM EDT Office Visit [facility] Ophthalmology [address] [address] Maulik Toney, [address] [place], [place] [address] optic neuritis and MS 07/20/2025 12:00 PM EDT Office Visit Family Medicine [facility] [address] [place] [address] MD [address] [place] [address] physical 09/30/2025 9:00 AM [facility] Hematology/Oncology [address] [place] [address] [place] [address] OCREVUS documented as of this encounter Visit Diagnoses Not on filedocumented in this encounter Care Teams Polysilicon Preparation Worker Relationship Specialty Start Date End Date Rashard Lane MD [address] [place] [address] PCP - General Family Medicine 12/09/19 Juan Miguel Caballero [facility] 05/30/24 Olimpia Turpin, SALES AND MARKETING ASSOCIATE.SUPERVISOR ESTIMATOR AND DRAFTER [address] [place] [address] Pot Holder Binder Family Medicine 10/18/24 Maricruz Valdovinos PA-C [address] [place] [address] Pot Holder Binder Internal Medicine 10/18/24 11/11/24 documented as of this encounter
--- OUTSIDE RECORDS SUMMARY | 2025-04-11 15:10 | XMS_ITS | Encounter Summary ---
Author Organization [facility] Address [address] [place] [address] Care Team Providers Care Talent Acquisition Consultant Name Role Phone Rashard Lane MD Primary Care Provider [phone] Juan Miguel Caballero [facility] Unavailable Unavailable Olimpia Turpin CUTTING DEPARTMENT SUPERVISOR.BODY LINE FINISHER Unavailable Maricruz Valdovinos PA-C Unavailable [phone] Source Comments In the event this information is protected by the Federal Confidentiality of Alcohol and Drug AbusePatient Records regulations: The Federal rules restrict any use of the information to criminally investigate or prosecute any alcohol or drug abuse patient.[facility] Encounter Details Date Type Department Care Team (Late st Contact Info) Description 01/26/2024 Patient Msg Neurology [address] [place] [address] Provider, Ccf Please Call [facility] Social History Tobacco Use Types Packs/Day Years [...] Answer Date Recorded PHQ-2 score 0 01/21/2024 [facility] Occupat ional Health - Occupational Stress [...] place to sleep or slept in a skilled nursing (including now)? No 12/16/2022 [place] Depression Scale Answer Date Recorded [place] Depression Scale Total 1 10/30/2020 The thought of harming myself has occurred to me . Never 10/30/2020 Area Deprivation Index Answer Date Ger rded National Score (1-100), lower number is lower ri sk 93 07/17/2023 State Score (1-10), lower number is lower risk 9 07/17/2023 Data from: https://www.neighborhoodatlas.medicine.[facility].edu/. Last address used for calculation [address] [...] AM EDT Specialty Pharmacy [facility] [address] [place] [address] [place] [address] Pharmacist, [facility] [address] [place] [address] refill - glatiramer MWF--lvm 03/29,04/08([facility]) 05/23/2025 1:30 PM EDT Office Visit [facility] Ophthalmology [address] [address] Maulik Toney, [address] [place], [place] [address] optic neuritis and MS 07/20/2025 12:00 PM EDT Office Visit Family Medicine [facility] [address] [place] [address] MD [address] [place] [address] physical 09/30/2025 9:00 AM [facility] Hematology/Oncology [address] [place] [address] [place] [address] OCREVUS documented as of this encounter Visit Diagnoses Not on filedocumented in this encounter Care Teams Talent Acquisition Consultant Relationship Specialty Start Date End Date Rashard Lane MD [address] [place] [address] PCP - General Family Medicine 12/09/19 Juan Miguel Caballero [facility] 05/30/24 Olimpia Turpin, CUTTING DEPARTMENT SUPERVISOR.BODY LINE FINISHER [address] [place] [address] Summer Clerk Family Medicine 10/18/24 Maricruz Valdovinos PA-C [address] [place] [address] Summer Clerk Internal Medicine 10/18/24 11/11/24 documented as of this encounter
--- OUTSIDE RECORDS SUMMARY | 2025-04-11 15:10 | XMS_ITS | Encounter Summary ---
Author Organization [facility] Address [address] [place] [address] Care Team Providers Care Conservation Specialist Name Role Phone Rashard Lane MD Primary Care Provider [phone] Juan Miguel Caballero [facility] Unavailable Unavailable Olimpia Turpin DANCE HALL HOST/HOSTESS.SOCIAL MEDIA MANAGER Unavailable [phone] Maricruz Valdovinos PA-C Unavailable [phone] Source Comments In the event this information is protected by the Federal Confidentiality of Alcohol and Drug AbusePatient Records regulations: The Federal rules restrict any use of the information to criminally investigate or prosecute any alcohol or drug abuse patient.[facility] Encounter Details Date Type Department Care Team (Late st Contact Info) Description 04/15/2024 Patient Msg Neurology [address] [place] [address] Provider, Ccf Appointment Social History Tobacco Use [...] often do you attend chur ch or latter day services? Never 12/16/2022 Do you belong to any clubs o r organizations such as pentecostal groups, unions, fraternal [...] PHQ-2 Answer Date Recorded PHQ-2 score 5 04/13/2024 [facility] of Occupat ional Health - Occupational Stress [...] place to sleep or slept in a half-way (including now)? No 12/16/2022 [place] Depression Scale Answer Date Recorded [place] Depression Scale Total 1 10/30/2020 The thought of harming myself has occurred to me . Never 10/30/2020 Area Deprivation Index Answer Date Ger rded National Score (1-100), lower number is lower ri sk 93 07/17/2023 State Score (1-10), lower number is lower risk 9 07/17/2023 Data from: https://www.neighborhoodatlas.medicine.[facility].edu/. Last address used for calculation [address] [...] AM EDT Specialty Pharmacy [facility] [address] [place] [address] [address] [place] [address] Pharmacist, [facility] [address] [place] [address] refill - glatiramer MWF--lvm 03/29,04/08(wa) 05/23/2025 1:30 PM EDT Office Visit [facility] Ophthalmology [address] [address] Maulik Toney DO [address] [place] [address] optic neuritis and MS 07/20/2025 12:00 PM EDT Office Visit Family Medicine [facility] [address] [place] [address] MD [address] [facility] [place] [address] physical 09/30/2025 9:00 AM [facility] Hematology/Oncology [address] [place] [address] [place] [address] OCREVUS documented as of this encounter Visit Diagnoses Not on filedocumented in this encounter Care Teams Conservation Specialist Relationship Specialty Start Date End Date Rashard Lane MD [address] [place] [address] PCP - General Family Medicine 12/09/19 Juan Miguel Caballero [facility] 05/30/24 Olimpia Turpin, DANCE HALL HOST/HOSTESS.SOCIAL MEDIA MANAGER [address] [place] [address] Cyber Security Specialist Family Medicine 10/18/24 Maricruz Valdovinos PA-C [address] [place] [address] Cyber Security Specialist Internal Medicine 10/18/24 11/11/24 documented as of this encounter
--- OUTSIDE RECORDS SUMMARY | 2025-04-11 15:10 | XMS_ITS | Encounter Summary ---
Author Organization [facility] Address [address] [place] [address] Care Team Providers Care Mail Distribution Clerk Name Role Phone Rashard Lane MD Primary Care Provider [phone] Juan Miguel Caballero [facility] Unavailable Unavailable Olimpia Turpin ORDNANCE ENGINEERING TECHNICIAN.AUTOMATION DRIVER Unavailable [phone] Maricruz Valdovinos PA-C Unavailable [phone] Source Comments In the event this information is protected by the Federal Confidentiality of Alcohol and Drug AbusePatient Records regulations: The Federal rules restrict any use of the information to criminally investigate or prosecute any alcohol or drug abuse patient.[facility] Encounter Details Date Type Department Care Team (Late st Contact Info) Description 08/14/2022 Patient Msg Neurology [address] [place] [address] Provider, Ccf [facility] infusion Social History Tobacco Use Types Packs/Day Years Used Date Smoking Tobacco: Never Smokeless Tobacco: Never Alcohol Use Standard Drinks/Week Comments Not Currently 0 (1 standard drink = 0.6 oz pur e alcohol) occas PHQ-2 Answer Date Recorded PHQ-2 score 2 08/06/2022 [place] Depression Scale Answer Date Recorded [place] Depression Scale Total 1 10/30/2020 The thought of harming myself has occurred to me . Never 10/30/2020 Area Deprivation Index Answer Date Ger rded National Score (1-100), lower number is lower ri sk 59 03/29/2022 State Score (1-10), lower number is lower risk N ot on file 03/29/2022 Data from: https://www.neighborhoodatlas.medicine.[facility].edu/. Last address used for calculation [address] 03/29/2022 Education Answer Date Recorded [...] suspected to have Coronavirus/COVID-19? No / Unsure 08/08/2022 7:47 AM EDT documented as of this encounter [...] Gomez Castellano RN documented in this encounter Miscellaneous Notes * Telephone Encounter - Natalie Hatfield - 09/10/2022 3:17 PM EDT Patient called and is currently scheduled for 09/26/2022. She would like to know if this can be rescheduled for 09/27/2022. She would like a call back at [phone]. Please advise. documented in this encounter Plan of Treatment Upcoming Encounters Date Type Department Care Team (Latest Contact Info) Description 04/12/2025 11:00 AM EDT Specialty Pharmacy [facility] [address] [place], [place] [address] [address] Pharmacist, [facility] [address] [place] [address] refill - glatiramer MWF--lvm 03/29,04/08(wa) 05/23/2025 1:30 PM EDT Office Visit [facility] Ophthalmology [address] [address] Maulik Toney DO [address] [place] [address] optic neuritis and MS 07/20/2025 12:00 PM EDT Office Visit Family Medicine [facility] [address] [place] [address] MD [address] [place] [address] physical 09/30/2025 9:00 AM [facility] Hematology/Oncology [address] [place] [address] [place] [address] OCREVUS documented as of this encounter Visit Diagnoses Not on filedocumented in this encounter Additional Health Concerns Infection Onset Date Last Indicated Resolved Time COVID-19 Rule-Out 02/12/2023 02/12/2023 02/13/2023 1:49 AM EDT COVID-19 Confirmed 02/12/2023 02/12/2023 8:51 PM EDT documented as of this encounter Care Teams Mail Distribution Clerk Relationship Specialty Start Date End Date Rashard Lane MD [address] [place] [address] PCP - General Family Medicine 12/09/19 Juan Miguel Caballero [facility] 05/30/24 Olimpia Turpin, ORDNANCE ENGINEERING TECHNICIAN.AUTOMATION DRIVER [address] [place] [address] Day Care Home Mother Family Medicine 10/18/24 Maricruz Valdovinos PA-C [address] [place] [address] Day Care Home Mother Internal Medicine 10/18/24 11/11/24 documented as of this encounter
--- OUTSIDE RECORDS SUMMARY | 2025-04-11 15:10 | XMS_ITS | Encounter Summary ---
Author Organization [facility] Address [address] [place] [address] Care Team Providers Care Debeaker Name Role Phone Rashard Lane MD Primary Care Provider [phone] Juan Miguel Caballero [facility] Unavailable Unavailable Olimpia Turpin FIRE ADJUSTER.CONTENT PRODUCER Unavailable [phone] Maricruz Valdovinos PA-C Unavailable [phone] Source Comments In the event this information is protected by the Federal Confidentiality of Alcohol and Drug AbusePatient Records regulations: The Federal rules restrict any use of the information to criminally investigate or prosecute any alcohol or drug abuse patient.[facility] Encounter Details Date Type Department Care Team (Late st Contact Info) Description 06/23/2024 Abstract Neurology [address] [place], [place] [id number] Main, Sleep Center [address] [id number] Social History Tobacco Use Types Packs/Day Years [...] often do you attend chur ch or advent services? Never 12/16/2022 Do you belong to [...] PHQ-2 Answer Date Recorded PHQ-2 score 0 05/23/2024 [facility] - Occupational Stress Questionnaire [...] place to sleep or slept in a nursing home (including now)? No 12/16/2022 [place] Depression Scale Answer Date Recorded [place] Depression Scale Total 1 10/30/2020 The thought of harming myself has occurred to me . Never 10/30/2020 Area Deprivation Index Answer Date Ger rded National Score (1-100), lower number is lower ri sk 93 07/17/2023 State Score (1-10), lower number is lower risk 9 07/17/2023 Data from: https://www.neighborhoodatlas.medicine.[facility].edu/. Last address used for calculation [...] AM EDT Specialty Pharmacy [facility] [address] [place] [address] [address] Pharmacist, [facility] [address] [place] [address] refill - glatiramer MWF--lvm 03/29,04/08([facility]) 05/23/2025 1:30 PM EDT Office Visit OPHT Ophthalmology [address] [address] Maulik Toney DO [address] [place], [place] [phone] optic neuritis and MS 07/20/2025 12:00 PM EDT Office Visit Family Medicine [facility] [address] [place] [address] MD [address] [place] [address] physical 09/30/2025 9:[address] [facility] Hematology/Oncology [address] [place] [address] [place] [address] OCREVUS documented as of this encounter Visit Diagnoses Not on filedocumented in this encounter Care Teams Debeaker Relationship Specialty Start Date End Date Rashard Lane MD [address] [place] [address] PCP - General Family Medicine 12/09/19 Juan Miguel Caballero [facility] Pharmacy 05/30/24 Olimpia Turpin, FIRE ADJUSTER.[facility] [address] [place] [address] Shelving Supervisor Family Medicine 10/18/24 Maricruz Valdovinos PA-C [address] [place] [address] Shelving Supervisor Internal Medicine 10/18/24 11/11/24 documented as of this encounter
--- OUTSIDE RECORDS SUMMARY | 2025-04-11 15:10 | XMS_ITS | Encounter Summary ---
Author Organization [facility] Address [address] [place] [address] Care Team Providers Care Signaler Name Role Phone Rashard Lane MD Primary Care Provider [phone] Juan Miguel Caballero [facility] Unavailable Unavailable Olimpia Turpin HEALTH EDUCATOR.NETWORKER Unavailable [phone] Maricruz Valdovinos PA-C Unavailable [phone] Source Comments In the event this information is protected by the Federal Confidentiality of Alcohol and Drug AbusePatient Records regulations: The Federal rules restrict any use of the information to criminally investigate or prosecute any alcohol or drug abuse patient.[facility] Encounter Details Date Type Department Care Team (Late st Contact Info) Description 12/18/2022 Patient Msg Chris Betancourt [address] [address] Mirna Wilson LISW [address] [place] [address] Social Work Resources Social History Tobacco Use Types Packs/Day Years [...] any clubs o r organizations such as mormonism groups, unions, fraternal or athletic groups, or [...] PHQ-2 Answer Date Recorded PHQ-2 score 0 12/17/2022 [facility] - Occupational Stress Questionnaire Answer Date Recorded [...] place to sleep or slept in a fci (including now)? No 12/16/2022 [place] Depression Scale Answer Date Recorded [place] Depression Scale Total 1 10/30/2020 The thought of harming myself has occurred to me . Never 10/30/2020 Area Deprivation Index Answer Date Ger rded National Score (1-100), lower number is lower ri sk 89 11/27/2022 State Score (1-10), lower number is lower risk N ot on file 11/27/2022 Data from: https://www.neighborhoodatlas.medicine.[facility].edu/. Last address used for calculation [address] 11/27/2022 Education Answer Date Recorded What is [...] AM EDT Specialty Pharmacy [facility] [address] [place], [place] [address]-[address] [place] [address] Pharmacist, [facility] [address] [place] [address] refill - glatiramer MWF--lvm 03/29,04/08([facility]) 05/23/2025 1:30 PM EDT Office Visit OPHT Ophthalmology [address] [address] Maulik Toney DO [address] [place], [place] [phone] optic neuritis and MS 07/20/2025 12:00 PM EDT Office Visit Family Medicine [facility] [address] [place] [address] MD [address] [place] [address] physical 09/30/2025 9:00 AM [facility] Hematology/Oncology [address] [place] [address] [place] [address] OCREVUS documented as of this encounter Visit Diagnoses Not on filedocumented in this encounter Additional Health Concerns Infection Onset Date Last Indicated Resolved Time COVID-19 Rule-Out 02/12/2023 02/12/2023 02/13/2023 1:49 AM EDT COVID-19 Confirmed 02/12/2023 02/12/2023 8:51 PM EDT documented as of this encounter Care Teams Signaler Relationship Specialty Start Date End Date Rashard Lane MD [address] [place] [address] PCP - General Family Medicine 12/09/19 Juan Miguel Caballero, [facility] Pharmacy 05/30/24 Olimpia Turpin, HEALTH EDUCATOR.NETWORKER [address] [place] [address] Combine Mechanic Family Medicine 10/18/24 Maricruz Valdovinos PA-C [address] [place] [address] Combine Mechanic Internal Medicine 10/18/24 11/11/24 documented as of this encounter
--- OUTSIDE RECORDS SUMMARY | 2025-04-11 15:10 | XMS_ITS | Clinical Summary ---
Author Organization [facility] Address [address] [place] [address] Phone Care Team Providers Care Chimney Builder Brick Name Role Phone Rashard Lane MD Primary Care Provider Nataly Tripathi PRINT DECORATOR-HYDRO PLANT TECHNICIAN Unavailable [phone] Allergies No known active allergies Active Problems Problem Noted Date Diagnosed Date Poor growth affecting management of mother in third trimester ([facility]) 10/05/2024 Assessment & Plan (10/05/2024 3:50 PM EST): Patient was counseled about the common etiologies of growth restriction. Maternal factors include AMA, autoimmune disease (MS), and history of FGR are all risk factors for growth restriction. Genetic and factors are less likely when FGR is diagnosed this late in . Placental pathology is not available for review. 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 (Multi) 06/16/2024 Social History Tobacco Use Types Packs/Day Years Used Date Smoking Tobacco: Never Smokeless Tobacco: Never Tobacco Cessation:Counseling Given: Not Answered Alcohol Use Standard Drinks/Week Comments Never 0 (1 standard drink = 0.6 oz pur e alcohol) Comments No Sex and Gender Information Value Date Recorded Sex Assigned at Female 09/05/2023 10:59 AM EDT Legal Sex Female 1:31 PM EST Gender Identity Female 09/05/2023 10:59 AM EDT Sexual Orientation Straight 09/05/2023 10 :59 AM EDT Last Filed Vital Signs Vital Sign Reading Time Taken Comments Blood Pressure 119/76 10/12/2024 12:01 PM EST Pulse 103 10/12/2024 12:01 PM EST Temperature - - Respiratory Rate 16 07/05/2020 9:38 AM EDT Oxygen Saturation 100% 07/05/2020 9:38 AM EDT Inhaled Oxygen Concentration - - Weight 64.9 kg (143 lb) 10/12/2024 12:01 PM EST Height 168.9 cm (5' 6.5 ) 10/12/2024 12:01 PM ES T Body Mass Index 22.74 10/12/2024 12:01 PM EST Plan of Treatment Health Maintenance Due Date Last Done Comments Lipid Panel 1985 Medicare Annual Wellness Vis it (AWV) 1985 MMR Vaccines (1 of 1 - Standard series) 1986 Varicella Vaccines (1 of 2 - 13+ 2-dose series) 1998 Hepatitis B Vaccines (1 of 3 - 19+ 3-dose series) 2004 HPV/Cotest 2006 Cervical Cancer Screening 03/07/2024 Pap Smear 03/07/2024 03/07/2021, 07/04/2011 COVID-19 Vaccine (1 - 2023-2 5 season) 2024 Influenza Vaccine (Season Ended) 2025 11/20/2023 DTaP/Tdap/Td Vaccines (2 - T d or Tdap) 01/16/2032 01/15/2022 Zoster Vaccines (1 of 2) 2035 HIV Screening Completed 03/07/2021 Hepatitis C Screening Completed 03/07/2021 HIB Vaccines Aged Out No longer eligi ble based on patient's age to complete this topic HPV Vaccines Aged Out No longer eligi ble based on patient's age to complete this topic Hepatitis A Vaccines Aged Out No long er eligible based on patient's age to complete this topic IPV Vaccines Aged Out No longer eligi ble based on patient's age to complete this topic Meningococcal Vaccine Aged Out No kartik violette eligible based on patient's age to complete this topic Pneumococcal Vaccine: Pediatrics and At-Risk Adult Patients Aged Out No longer eligible b ased on patient's age to complete this topic Rotavirus Vaccines Aged Out No longer eligible based on patient's age to complete this topic Insurance [employer] MEDICAID [employer] CHOICE MEDICAID Care Teams Chimney Builder Brick Relationship Specialty [place] [address] [place] [address] PCP - General 12/13/19 Nataly Tripathi, PRINT DECORATOR-HYDRO PLANT TECHNICIAN [address] [place] [address] Supervisor Particleboard Obstetrics 06/16/24
--- OUTSIDE RECORDS SUMMARY | 2025-04-11 15:10 | XMS_ITS | Encounter Summary ---
Author Organization [facility] Address [address] [place] [address] Care Team Providers Care Programmer Analyst Consultant Name Role Phone Rashard Lane MD Primary Care Provider [phone] Juan Miguel Caballero [facility] Unavailable Unavailable Olimpia Turpin EQUIPMENT ASSOCIATE.MEDICAL DEVICE ENGINEER Unavailable [phone] Maricruz Valdovinos PA-C Unavailable [phone] Source Comments In the event this information is protected by the Federal Confidentiality of Alcohol and Drug AbusePatient Records regulations: The Federal rules restrict any use of the information to criminally investigate or prosecute any alcohol or drug abuse patient.[facility] Encounter Details Date Type Department Care Team (Late st Contact Info) Description 06/17/2024 Patient Msg Neurology [address] [phone] Provider, [facility] CONFIRM Social History Tobacco Use Types Packs/Day Years [...] often do you attend chur ch or restoration services? Never 12/16/2022 Do you belong to [...] Date Recorded PHQ-2 score 0 05/23/2024 [facility] Occup[facility] ional Health - [...] place to sleep or slept in a penitentiary (including now)? No 12/16/2022 [place] Depression Scale Answer Date Recorded [place] Depression Scale Total 1 10/30/2020 The thought of harming myself has occurred to me . Never 10/30/2020 Area Deprivation Index Answer Date Ger rded National Score (1-100), lower number is lower ri sk 93 07/17/2023 State Score (1-10), lower number is lower risk 9 07/17/2023 Data from: https://www.neighborhoodatlas.medicine.[facility].edu/. Last address used for calculation [address] [...] AM EDT Specialty Pharmacy [facility] [address] [place], [place] [address]-b-100 [place] [address] Pharmacist, [facility] [address] [place] [address] refill - glatiramer MWF--lvm 03/29,04/08(wa) 05/23/2025 1:30 PM EDT Office Visit OPHT Ophthalmology [address] [address] Maulik Toney DO [address] [place], [place] [phone] optic neuritis and MS 07/20/2025 12:00 PM EDT Office Visit Family Medicine [facility] [address] [place] [address] MD [address] [facility] [address] physical 09/30/2025 9:00 AM [facility] Hematology/Oncology [address] [place] [address] [place] [address] OCREVUS documented as of this encounter Visit Diagnoses Not on filedocumented in this encounter Care Teams Programmer Analyst Consultant Relationship Specialty Start Date End Date Rashard Lane MD [address] [place] [address] PCP - General Family Medicine 12/09/19 Juan Miguel Caballero [facility] Pharmacy 05/30/24 Olimpia Turpin, EQUIPMENT ASSOCIATE.MEDICAL DEVICE ENGINEER [address] [place] [address] [facility] 10/18/24 Maricruz Valdovinos PA-C [address] [place] [address] [facility] 10/18/24 11/11/24 documented as of this encounter
--- OUTSIDE RECORDS SUMMARY | 2025-04-11 15:10 | XMS_ITS | Encounter Summary ---
Author Organization [facility] Address [address] [place] [address] Care Team Providers Care Crew Leader Name Role Phone Rashard Lane MD Primary Care Provider [phone] Juan Miguel Caballero [facility] Unavailable Unavailable Olimpia Turpin TELEVISION ANTENNA INSTALLER.KICK PLATE INSTALLER Unavailable Maricruz Valdovinos PA-C Unavailable [phone] Source Comments In the event this information is protected by the Federal Confidentiality of Alcohol and Drug AbusePatient Records regulations: The Federal rules restrict any use of the information to criminally investigate or prosecute any alcohol or drug abuse patient.[facility] Encounter Details Date Type Department Care Team (Late st Contact Info) Description 08/08/2022 Patient Msg Chris Betancourt [address] [address] Mirna Wilson LISW [address] [place] [address] Social Work Social History Tobacco Use Types Packs/Day Years Used Date Smoking Tobacco: Never Smokeless Tobacco: Never Alcohol Use Standard Drinks/Week Comments Not Currently 0 (1 standard drink = 0.6 oz pur e alcohol) occas PHQ-2 Answer Date Recorded PHQ-2 score 2 08/06/2022 [place] Depression Scale Answer Date Recorded [place] Depression Scale Total 1 10/30/2020 The thought of harming myself has occurred to me . Never 10/30/2020 Area Deprivation Index Answer Date Ger rded National Score (1-100), lower number is lower ri sk 59 03/29/2022 State Score (1-10), lower number is lower risk N ot on file 03/29/2022 Data from: https://www.neighborhoodatlas.medicine.[facility]/. Last address used for calculation [address] 03/29/2022 Education Answer Date Recorded [...] Specialty Pharmacy [facility] [place], [place] [id number] Pharmacist, [facility] [address] [place] [address] refill - glatiramer MWF--lvm 03/29,04/08([facility]amb) 05/23/2025 1:30 PM EDT Office Visit OPHT Ophthalmology [address] [address] Maulik Toney, [address] [place], [place] [address] optic neuritis and MS 07/20/2025 12:00 PM EDT Office Visit Family Medicine [facility] [address] [place] [address] MD [address] [place] [address] physical 09/30/2025 9:00 AM [facility] Hematology/Oncology [address] [place] [address] [place] [address] OCREVUS documented as of this encounter Visit Diagnoses Not on filedocumented in this encounter Additional Health Concerns Infection Onset Date Last Indicated Resolved Time COVID-19 Rule-Out 02/12/2023 02/12/2023 02/13/2023 1:49 AM EDT COVID-19 Confirmed 02/12/2023 02/12/2023 3 8:51 PM EDT documented as of this encounter Care Teams Crew Leader Relationship Specialty Start Date End Date Rashard Lane MD [address] [place] [address] PCP - General Family Medicine 12/09/19 Juan Miguel Caballero [facility] Pharmacy 05/30/24 Olimpia Turpin, TELEVISION ANTENNA INSTALLER.KICK PLATE INSTALLER [address] [place] [address] Flat Screen Worker Family Medicine 10/18/24 Maricruz Valdovinos PA-C [address] [place] [address] Flat Screen Worker Internal Medicine 10/18/24 11/11/24 documented as of this encounter
--- OUTSIDE RECORDS SUMMARY | 2025-04-11 15:10 | XMS_ITS | Encounter Summary ---
Author Organization [facility] Address [address] [place] [address] Care Team Providers Care Geriatric Aide Name Role Phone Rashard Lane MD Primary Care Provider [phone] Juan Miguel Caballero [facility] Unavailable Unavailable Olimpia Turpin PRINTER SLOTTER HELPER.SPEECH LANG PATH Unavailable [phone] Maricruz Valdovinos PA-C Unavailable [phone] Source Comments In the event this information is protected by the Federal Confidentiality of Alcohol and Drug AbusePatient Records regulations: The Federal rules restrict any use of the information to criminally investigate or prosecute any alcohol or drug abuse patient.[facility] Encounter Details Date Type Department Care Team (Late st Contact Info) Description 12/10/2022 Patient Msg Rheumatology [address] [facility] [place] [address] Provider, [facility] A change in provider schedule Social History Tobacco Use Types Packs/Day Years Used Date Smoking Tobacco: Never Smokeless Tobacco: Never Alcohol Use Standard Drinks/Week Comments Not Currently 0 (1 standard drink = 0.6 oz pur e alcohol) occas PHQ-2 Answer Date Recorded PHQ-2 score 2 12/12/2022 [place] Depression Scale Answer Date Recorded [place] Depression Scale Total 1 10/30/2020 The thought of harming myself has occurred to me . Never 10/30/2020 Area Deprivation Index Answer Date Ger rded National Score (1-100), lower number is lower ri sk 89 11/27/2022 State Score (1-10), lower number is lower risk N ot on file 11/27/2022 Data from: https://www.neighborhoodatlas.medicine.[facility]/. Last address used for calculation [address] 11/27/2022 Education Answer Date Recorded What is [...] AM EDT Specialty Pharmacy [facility] [place], [place] [id number] Pharmacist, [facility] [address] [place] [address] [place], [place] [id number] refill - glatiramer MWF--lvm 03/29,04/08(wamb) 05/23/2025 1:30 PM EDT Office Visit OPHT Ophthalmology [address] [address] Maulik Toney, DO [address] [place], [place] [address] optic neuritis and MS 07/20/2025 12:00 PM EDT Office Visit Family Medicine [facility] [address] [place] [address] MD [address] [place] [address] physical 09/30/2025 9:00 AM [facility] Center Hematology/Oncology [address] [place] [address] [place] [address] OCREVUS documented as of this encounter Visit Diagnoses Not on filedocumented in this encounter Additional Health Concerns Infection Onset Date Last Indicated Resolved Time COVID-19 Rule-Out 02/12/2023 02/12/2023 02/13/2023 1:49 AM EDT COVID-19 Confirmed 02/12/2023 02/12/2023 8:51 PM EDT documented as of this encounter Care Teams Geriatric Aide Relationship Specialty Start Date End Date Rashard Lane MD [address] [place] [address] PCP - General Family Medicine 12/09/19 Juan Miguel Caballero [facility] Pharmacy 05/30/24 Olimpia Turpin, PRINTER SLOTTER HELPER.[facility] [address] [place] [address] Acoustical Tile Carpenters Supervisor Family Medicine 10/18/24 Maricruz Valdovinos PA-C [address] [place] [address] Acoustical Tile Carpenters Supervisor Internal Medicine 10/18/24 11/11/24 documented as of this encounter
--- OUTSIDE RECORDS SUMMARY | 2025-04-11 15:10 | XMS_ITS | Encounter Summary ---
Author Organization [facility] Address [address] [place] [address] Care Team Providers Care Prison Guard Supervisor Name Role Phone Rashard Lane MD Primary Care Provider [phone] Juan Miguel Caballero [facility] Unavailable Unavailable Olimpia Turpin MAKING MACHINE CATCHER.CASEWORK SPECIALIST Unavailable Maricruz Valdovinos PA-C Unavailable [phone] Source Comments In the event this information is protected by the Federal Confidentiality of Alcohol and Drug AbusePatient Records regulations: The Federal rules restrict any use of the information to criminally investigate or prosecute any alcohol or drug abuse patient.[facility] Encounter Details Date Type Department Care Team (Late st Contact Info) Description 06/21/2024 Patient Msg Neurology [address] [phone] Provider, [facility] CONFIRM Social History Tobacco Use [...] often do you attend chur ch or church services? Never 12/16/2022 Do you belong to [...] Answer Date Recorded PHQ-2 score 0 05/23/2024 [facility] Occupat ional Health - Occupational Stress [...] place to sleep or slept in a fdc (including now)? No 12/16/2022 [place] Depression Scale Answer Date Recorded [place] Depression Scale Total 1 10/30/2020 The thought of harming myself has occurred to me . Never 10/30/2020 Area Deprivation Index Answer Date Ger rded National Score (1-100), lower number is lower ri sk 93 07/17/2023 State Score (1-10), lower number is lower risk 9 07/17/2023 Data from: https://www.neighborhoodatlas.medicine.[facility].edu/. Last address used for calculation [address] [...] of Assessment Author No 01/11/2021 4:00 PM oGmez Castellano RN * Do you have difficulty [...] AM EDT Specialty Pharmacy [facility] [address] [place], [place] [address]44-[address] [place] [address] Pharmacist, [facility] [address] [place] [address] refill - glatiramer MWF--lvm 03/29,04/08(wa) 05/23/2025 1:30 PM EDT Office Visit OPHT Ophthalmology [address] [address] Maulik Toney DO [address] [place], [place] [phone] optic neuritis and MS 07/20/2025 12:00 PM EDT Office Visit Family Medicine [facility] [address] [place] [address] MD [address] [facility] [address] physical 09/30/2025 9:00 AM [facility] Hematology/Oncology [address] [place] [address] [place] [address] OCREVUS documented as of this encounter Visit Diagnoses Not on filedocumented in this encounter Care Teams Prison Guard Supervisor Relationship Specialty Start Date End Date Rashard Lane MD [address] [place] [address] PCP - General Family Medicine 12/09/19 Juan Miguel Caballero [facility] Pharm[facility] 05/30/24 Olimpia Turpin, MAKING MACHINE CATCHER.CASEWORK SPECIALIST [address] [place] [address] Scrape Gatherer Family Medicine 10/18/24 Maricruz Valdovinos PA-C [address] [place] [address] Scrape Gatherer Internal Medicine 10/18/24 11/11/24 documented as of this encounter
--- OUTSIDE RECORDS SUMMARY | 2025-04-11 15:10 | XMS_ITS | Encounter Summary ---
Author Organization [facility] Address [address] [place] [address] Care Team Providers Care Supervisor Nutritional Yeast Name Role Phone Rashard Lane MD Primary Care Provider [phone] Juan Miguel Caballero [facility] Unavailable Unavailable Olimpia Turpin PHYSICIAN OFFICE NURSE.METAL BONDER Unavailable [phone] Maricruz Valdovinos PA-C Unavailable [phone] Source Comments In the event this information is protected by the Federal Confidentiality of Alcohol and Drug AbusePatient Records regulations: The Federal rules restrict any use of the information to criminally investigate or prosecute any alcohol or drug abuse patient.[facility] Encounter Details Date Type Department Care Team (Late st Contact Info) Description 07/26/2022 Patient Msg Internal Medicine [address] [place] [address] Provider, Ccf Additional Therapy Visits Social History Tobacco Use Types Packs/Day Years Used Date Smoking Tobacco: Never Smokeless Tobacco: Never Alcohol Use Standard Drinks/Week Comments Not Currently 0 (1 standard drink = 0.6 oz pur e alcohol) occas PHQ-2 Answer Date Recorded PHQ-2 score 0 02/08/2021 Frederic Depression Scale Answer Date Recorded Frederic Depression Scale Total 1 10/30/2020 The thought of harming myself has occurred to me . Never 10/30/2020 Area Deprivation Index Answer Date Ger rded National Score (1-100), lower number is lower ri sk 59 03/29/2022 State Score (1-10), lower number is lower risk N ot on file 03/29/2022 Data from: https://www.neighborhoodatlas.medicine.[facility].edu/. Last address used for calculation [address] 03/29/2022 Education Answer Date Recorded [...] AM EDT Specialty [facility]acy [facility] [facility] [address] [place] [address] Pharmacist, Specialtygroup3 [address] [place] [address] [place] [address] refill - glatiramer MWF--lvm 03/29,04/08(wamb) 05/23/2025 1:30 PM EDT Office Visit [facility]HT Ophthalmology [address] [address] Maulik Toney, DO [address] [place] [address] optic neuritis and MS 07/20/2025 12:00 PM EDT Office Visit Family Medicine [facility] [address] [place] [address] MD [address] [place] [address] physical 09/30/2025 9:00 AM [facility] Infusion Center Hematology/Oncology [address] [place] [address] [place] [address] OCREVUS documented as of this encounter Visit Diagnoses Not on filedocumented in this encounter Additional Health Concerns Infection Onset Date Last Indicated Resolved Time COVID-19 Rule-Out 02/12/2023 02/12/2023 02/13/2023 1:49 AM EDT COVID-19 Confirmed 02/12/2023 02/12/2023 04/15/202 3 8:51 PM EDT documented as of this encounter Care Teams Supervisor Nutritional Yeast Relationship Specialty Start Date End Date Rashard Lane MD [address] [place] [address] PCP - General Family Medicine 12/09/19 Juan Miguel Caballero [facility] 05/30/24 Olimpia Turpin, PHYSICIAN OFFICE NURSE.[facility] [address] [place] [address] Scientific Software Engineer Family Medicine 10/18/24 Maricruz Valdovinos PA-C [address] [place] [address] Scientific Software Engineer Internal Medicine 10/18/24 11/11/24 documented as of this encounter
--- OUTSIDE RECORDS SUMMARY | 2025-04-11 15:10 | XMS_ITS | Encounter Summary ---
Author Organization [facility] Address [address] [place] [address] Care Team Providers Care High Speed Operator Name Role Phone Rashard Lane MD Primary Care Provider [phone] Juan Miguel Caballero [facility] Unavailable Unavailable Olimpia Turpin TEACHER ASST.CREDIT RATING INSPECTOR Unavailable Maricruz Valdovinos PA-C Unavailable [phone] Source Comments In the event this information is protected by the Federal Confidentiality of Alcohol and Drug AbusePatient Records regulations: The Federal rules restrict any use of the information to criminally investigate or prosecute any alcohol or drug abuse patient.[facility] Encounter Details Date Type Department Care Team (Late st Contact Info) Description 03/05/2024 Abstract Neurology [address] [place] [address] [facility], Sleep Center [address] [place] [address] Social History Tobacco Use Types Packs/Day Years [...] often do you attend chur ch or shinto services? Never 12/16/2022 Do you belong to any clubs o r organizations such as taoist groups, unions, fraternal or athletic groups, or [...] Answer Date Recorded PHQ-2 score 0 01/21/2024 [facility] - Occupational Stress [...] in a prison (including now)? No 12/16/2022 [place] Depression Scale Answer Date Recorded [place] Depression Scale Total 1 10/30/2020 The thought of harming myself has occurred to me . Never 10/30/2020 Area Deprivation Index Answer Date Ger rded National Score (1-100), lower number is lower ri sk 93 07/17/2023 State Score (1-10), lower number is lower risk 9 07/17/2023 Data from: https://www.neighborhoodatlas.medicine.[facility].edu/. Last address used for calculation [...] AM EDT Specialty Pharmacy [facility] [address] [place], [place] [address] [address] Pharmacist, [facility] [address] [place] [address] refill - glatiramer MWF--lvm 03/29,04/08([facility]) 05/23/2025 1:30 PM EDT Office Visit [facility] Ophthalmology [address] [address] Maulik Toney DO [address] [place], [place] [address] optic neuritis and MS 07/20/2025 12:00 PM EDT Office Visit Family Medicine [facility] [address] [place] [address] MD [address] [place] [address] physical 09/30/2025 9:00 AM [facility] Hematology/Oncology [address] [place] [address] [place] [address] OCREVUS documented as of this encounter Visit Diagnoses Not on filedocumented in this encounter Care Teams High Speed Operator Relationship Specialty Start Date End Date Rashard Lane MD [address] [place] [address] PCP - General Family Medicine 12/09/19 Juan Miguel Caballero [facility] 05/30/24 Olimpia Turpin, TEACHER ASST.[facility] [address] [place] [address] Ticket Taker Family Medicine 10/18/24 Maricruz Valdovinos PA-C [address] [place] [address] Ticket Taker Internal Medicine 10/18/24 11/11/24 documented as of this encounter
--- OUTSIDE RECORDS SUMMARY | 2025-04-11 15:10 | XMS_ITS | Encounter Summary ---
Author Organization [facility] Address [facility] [place] [address] Care Team Providers Care Construction Supervisor Name Role Phone Rashard Lane MD Primary Care Provider [phone] Juan Miguel Caballero [facility] Unavailable Unavailable Olimpia Turpin ARC WELDER APPRENTICE.ROUTE CDL DRIVER Unavailable [phone] Maricruz Valdovinos PA-C Unavailable [phone] Source Comments In the event this information is protected by the Federal Confidentiality of Alcohol and Drug AbusePatient Records regulations: The Federal rules restrict any use of the information to criminally investigate or prosecute any alcohol or drug abuse patient.[facility] Encounter Details Date Type Department Care Team (Late st Contact Info) Description 11/28/2022 [facility] [address] [place] [address] [place] [address] [place] [address] Updated insurance Social History Tobacco Use Types Packs/Day Years Used Date Smoking Tobacco: Never Smokeless Tobacco: Never Alcohol Use Standard Drinks/Week Comments Not Currently 0 (1 standard drink = 0.6 oz pur e alcohol) occas PHQ-2 Answer Date Recorded PHQ-2 score 0 11/07/2022 [place] Depression Scale Answer Date Recorded [place] Depression Scale Total 1 10/30/2020 The thought of harming myself has occurred to me . Never 10/30/2020 Area Deprivation Index Answer Date Ger rded National Score (1-100), lower number is lower ri sk 89 11/27/2022 State Score (1-10), lower number is lower risk N ot on file 11/27/2022 Data from: https://www.neighborhoodatlas.medicine.[facility].edu/. Last address used for calculation [address] 11/27/2022 Education Answer Date Recorded What is [...] AM EDT Specialty Pharmacy [facility] [address] [place] [address] Pharmacist, Specialtygroup3 [address] [place] [address] [place] [address] refill - glatiramer MWF--lvm 03/29,04/08(wamb) 05/23/2025 1:30 PM EDT Office Visit [facility] Ophthalmology [address] [address] Maulik Toney, DO [address] [place] [address] optic neuritis and MS 07/20/2025 12:00 PM EDT Office Visit Family Medicine [facility] [address] [place] [address] MD [address] [place] [address] physical 09/30/2025 9:00 AM [facility] Center Hematology/Oncology [address] [place] [address] [place] [address] OCREVUS documented as of this encounter Visit Diagnoses Not on filedocumented in this encounter Additional Health Concerns Infection Onset Date Last Indicated Resolved Time COVID-19 Rule-Out 02/12/2023 02/12/2023 02/13/2023 1:49 AM EDT COVID-19 Confirmed 02/12/2023 02/12/2023 8:51 PM EDT documented as of this encounter Care Teams Construction Supervisor Relationship Specialty Start Date End Date Rashard Lane MD [address] [place] [address] PCP - General Family Medicine 12/09/19 Juan Miguel Caballero [facility] 05/30/24 Olimpia Turpin, CYNTHIA.[facility] [address] [place] [address] Librarian Head Family Medicine 10/18/24 Maricruz Valdovinos PA-C [address] [place] [address] Librarian Head Internal Medicine 10/18/24 11/11/24 documented as of this encounter
--- OUTSIDE RECORDS SUMMARY | 2025-04-11 15:10 | XMS_ITS | Encounter Summary ---
Author Organization [facility] Address [address] [place] [address] Care Team Providers Care Assistant Nurse Manager Name Role Phone Milton Earl MD Primary Care Provider [phone] Encounter Details Date Type Department Care Team (Late st Contact Info) Description 09/15/2017 FollowUp Telephone Encounter [facility] Sleep Center [address] [place] [address] [place] [address] Elizabeth Cotton Social History Tobacco Use [...] encounter Progress Notes * Elizabeth Cotton - 09/15/2017 2:38 PM CST Called patient reviewed results with her she voiced understanding and the report was in basket to Dr Earl documented in this encounter Plan of Treatment Not on file documented as of this encounter Visit Diagnoses Not on filedocumented in this encounter Care Teams Assistant Nurse Manager Relationship Specialty Start Date End Date Milton Earl MD PCP - General Family Medicine 09/30/15 04/20/23 documented as of this encounter
--- OUTSIDE RECORDS SUMMARY | 2025-04-11 15:10 | XMS_ITS | Encounter Summary ---
Author Organization [facility] Address [address] [place] [address] Care Team Providers Care Billing Manager Name Role Phone Rashard Lane MD Primary Care Provider [phone] Juan Miguel Caballero [facility] Unavailable Unavailable Olimpia Turpin SPANISH LECTURER.[facility] Unavailable Maricruz Valdovinos PA-C Unavailable [phone] Source Comments In the event this information is protected by the Federal Confidentiality of Alcohol and Drug AbusePatient Records regulations: The Federal rules restrict any use of the information to criminally investigate or prosecute any alcohol or drug abuse patient.[facility] Encounter Details Date Type Department Care Team (Late st Contact Info) Description 12/16/2022 Get Medical Advice Family Medicine [facility] [address] [place], [place] [address] Rashard [address] MD [address] [place] [address] COVID Social History Tobacco Use Types Packs/Day Years [...] often do you attend chur ch or baptist services? Never 12/16/2022 Do you belong to any clubs o r organizations such as hinduism groups, unions, fraternal or athletic groups, or [...] Answer Date Recorded PHQ-2 score 0 12/17/2022 [facility] - Occupational [...] in a prison (including now)? No 12/16/2022 [place] Depression Scale Answer Date Recorded [place] Depression Scale Total 1 10/30/2020 The thought of harming myself has occurred to me . Never 10/30/2020 Area Deprivation Index Answer Date Ger rded National Score (1-100), lower number is lower ri sk 89 11/27/2022 State Score (1-10), lower number is lower risk N ot on file 11/27/2022 Data from: https://www.neighborhoodatlas.medicine.[facility].edu/. Last address used for calculation [address] [...] as of this encounter Functional Status * Audit-C Score Answer Date of Assessment Author 0 12/16/2022 9:33 AM EST User, Myc rand * Q1: How often do you have a drink containing alcohol? Answer Date of Assessment Author Never 12/16/2022 9:33 AM EST Mathew Schultz rand * Q2: How many drinks containing alcohol do you have on a typical day when you are drinking? Answer Date of Assessment Author Patient does not drink 12/16/2022 9:33 AM EST Us [email or web address] * Q3: How often do you have six or more drinks on one occasion? Answer Date of Assessment Author Never 12/16/2022 9:33 AM EST Mathew Schultz rand * Are you deaf or do you [...] EDT Specialty Pharmacy [facility] [address] [facility] [address] [place] [address] Pharmacist, Specialtygroup3 [address] [place] [address] [place] [address] refill - glatiramer MWF--lvm 03/29,04/08(wamb) 05/23/2025 1:30 PM EDT Office Visit [facility] Ophthalmology [address] [place] [address] Maulik Toney, DO [address] [facility] [place] [address] optic neuritis and MS 07/20/2025 12:00 PM EDT Office Visit Family Medicine [facility] [address] [place] [address] MD [address] [place] [address] physical 09/30/2025 9:00 AM [facility] Hematology/Oncology [address] [place] [address] [place] [address] OCREVUS documented as of this encounter Visit Diagnoses Not on filedocumented in this encounter Additional Health Concerns Infection Onset Date Last Indicated Resolved Time COVID-19 Rule-Out 02/12/2023 02/12/2023 02/13/2023 1:49 AM EDT COVID-19 Confirmed 02/12/2023 02/12/2023 8:51 PM EDT documented as of this encounter Care Teams Billing Manager Relationship Specialty Start Date End Date Rashard Lane MD [address] [place] [address] PCP - General Family Medicine 12/09/19 Juan Miguel Caballero [facility] 05/30/24 Olimpia Turpin, SPANISH LECTURER.PUMP AND BLOWER OPERATOR [address] [place] [address] Suspender Maker Family Medicine 10/18/24 Maricruz Valdovinos PA-C [address] [place] [address], [place] [address] Suspender Maker Internal Medicine 10/18/24 11/11/24 documented as of this encounter
--- OUTSIDE RECORDS SUMMARY | 2025-04-11 15:10 | XMS_ITS | Encounter Summary ---
Author Organization [facility] Address [address] [place] [address] Care Team Providers Care Flask Carrier Name Role Phone Rashard Lane MD Primary Care Provider [phone] Juan Miguel Caballero [facility] Unavailable Unavailable Olimpia Turpin LAV CREWMAN.LASER CUTTER Unavailable Maricruz Valdovinos PA-C Unavailable [phone] Source Comments In the event this information is protected by the Federal Confidentiality of Alcohol and Drug AbusePatient Records regulations: The Federal rules restrict any use of the information to criminally investigate or prosecute any alcohol or drug abuse patient.[facility] Encounter Details Date Type Department Care Team (Late st Contact Info) Description 01/17/2024 [place] [address] Provider, Ccf MRI Screening Questionnaire Completion Required Social History Tobacco Use Types Packs/Day Years [...] often do you attend chur ch or presybeterian services? Never 12/16/2022 Do you belong to any clubs o r organizations such as yarsani groups, unions, fraternal or athletic groups, or [...] Answer Date Recorded PHQ-2 score 0 01/21/2024 [facility] - Occupational Stress Questionnaire Answer Date Recorded [...] Yes 12/16/2022 Housing Stability Vital Sign Answer Esequile e Recorded In the last 12 months, [...] in a assisted (including now)? No 12/16/2022 [place] Depression Scale Answer Date Recorded [place] Depression Scale Total 1 10/30/2020 The thought of harming myself has occurred to me . Never 10/30/2020 Area Deprivation Index Answer Date Ger rded National Score (1-100), lower number is lower ri sk 93 07/17/2023 State Score (1-10), lower number is lower risk 9 07/17/2023 Data from: https://www.neighborhoodatlas.medicine.[facility].edu/. Last address used for calculation [address] [...] AM EDT Specialty Pharmacy [facility] [address] [place] [address] [address] [place] [address] Pharmacist, Specialtygroup3 [address] [place] [address] refill - glatiramer MWF--lvm 03/29,04/08(wamb) 05/23/2025 1:30 PM EDT Office Visit [facility] Ophthalmology [address] [address] Maulik Toney DO [address] [place], [place] [address] optic neuritis and MS 07/20/2025 12:00 PM EDT Office Visit Family Medicine [facility] [address] [place] [address] MD [address] [place] [address] physical 09/30/2025 9:00 AM [facility] Hematology/Oncology [address] [place] [address] [place] [address] OCREVUS documented as of this encounter Visit Diagnoses Not on filedocumented in this encounter Care Teams Flask Carrier Relationship Specialty Start Date End Date Rashard Lane MD [address] [place] [address] PCP - General Family Medicine 12/09/19 Juan Miguel Caballero [facility] 05/30/24 Olimpia Turpin, LAV CREWMAN.LASER CUTTER [address] [place] [address] Any Commodity Buyer Family Medicine 10/18/24 Maricruz Valdovinos PA-C [address] [place] [address] Any Commodity Buyer Internal Medicine 10/18/24 11/11/24 documented as of this encounter
--- OUTSIDE RECORDS SUMMARY | 2025-04-11 15:10 | XMS_ITS | Encounter Summary ---
Author Organization [facility] Address [address] [place] [address] Care Team Providers Care Fire Prevention Research Engineer Name Role Phone Rashard Lane MD Primary Care Provider [phone] Juan Miguel Caballero [facility] Unavailable Unavailable Olimpia Turpin SOUND RECORDING TECHNICIAN.SUPERVISOR TUNNEL HEADING Unavailable Maricruz Valdovinos PA-C Unavailable [phone] Source Comments In the event this information is protected by the Federal Confidentiality of Alcohol and Drug AbusePatient Records regulations: The Federal rules restrict any use of the information to criminally investigate or prosecute any alcohol or drug abuse patient.[facility] Encounter Details Date Type Department Care Team (Late st Contact Info) Description 11/08/2022 Get Medical Advice Ophthalmology [address] [place], [place] [id number] Gilson Ornelas OD [address] [facility] [address] Glasses filled Social History Tobacco Use Types Packs/Day Years Used Date Smoking Tobacco: Never Smokeless Tobacco: Never Alcohol Use Standard Drinks/Week Comments Not Currently 0 (1 standard drink = 0.6 oz pur e alcohol) occas PHQ-2 Answer Date Recorded PHQ-2 score 0 11/07/2022 [place] Depression Scale Answer Date Recorded [place] Depression Scale Total 1 10/30/2020 The thought of harming myself has occurred to me . Never 10/30/2020 Area Deprivation Index Answer Date Ger rded National Score (1-100), lower number is lower ri sk 59 03/29/2022 State Score (1-10), lower number is lower risk N ot on file 03/29/2022 Data from: https://www.neighborhoodatlas.medicine.[facility].edu/. Last address used for calculation [address] 03/29/2022 Education Answer Date Recorded [...] AM EDT Specialty Pharmacy [facility] [address] [place] [address] Pharmacist, Specialtygroup3 [address] [place] [address] [place] [address] refill - glatiramer MWF--lvm 03/29,04/08(wamb) 05/23/2025 1:30 PM EDT Office Visit [facility] Ophthalmology [address] [address] Maulik Toney, DO [address] [place] [address] optic neuritis and MS 07/20/2025 12:00 PM EDT Office Visit Family Medicine [facility] [address] [place] [address] MD [address] [place] [address] physical 09/30/2025 9:00 AM [facility] Hematology/Oncology [address] [place] [address] [place] [address] OCREVUS documented as of this encounter Visit Diagnoses Not on filedocumented in this encounter Additional Health Concerns Infection Onset Date Last Indicated Resolved Time COVID-19 Rule-Out 02/12/2023 02/12/2023 02/13/2023 1:49 AM EDT COVID-19 Confirmed 02/12/2023 02/12/2023 8:51 PM EDT documented as of this encounter Care Teams Fire Prevention Research Engineer Relationship Specialty Start Date End Date Rashard Lane MD [address] [place] [address] PCP - General Family Medicine 12/09/19 Juan Miguel Caballero [facility] 05/30/24 Olimpia Turpin APRN.[facility] [address] [place] [address] Multiple Spindle Router Operator Family Medicine 10/18/24 Maricruz Valdovinos PA-C [address] [place] [address] Multiple Spindle Router Operator Internal Medicine 10/18/24 11/11/24 documented as of this encounter
--- OUTSIDE RECORDS SUMMARY | 2025-04-11 15:10 | XMS_ITS | Encounter Summary ---
Author Organization [facility] Address [address] [place] [address] Care Team Providers Care Cooling Tower Technician Name Role Phone Rashard Lane MD Primary Care Provider [phone] Juan Miguel Caballero [facility] Unavailable Unavailable Olimpia Turpin ANIMATION CAMERA OPERATOR.CUSTOMER SERVICE ASSOCIATE Unavailable [phone] Maricruz Valdovinos PA-C Unavailable [phone] Source Comments In the event this information is protected by the Federal Confidentiality of Alcohol and Drug AbusePatient Records regulations: The Federal rules restrict any use of the information to criminally investigate or prosecute any alcohol or drug abuse patient.[facility] Encounter Details Date Type Department Care Team (Late st Contact Info) Description 09/06/2022 Patient [facility] [place] [address] [id number] Provider, Ccf Appointment Scheduling Social History Tobacco Use Types Packs/Day Years Used Date Smoking Tobacco: Never Smokeless Tobacco: Never Alcohol Use Standard Drinks/Week Comments Not Currently 0 (1 standard drink = 0.6 oz pur e alcohol) occas PHQ-2 Answer Date Recorded PHQ-2 score 0 09/02/2022 [place] Depression Scale Answer Date Recorded [place] Depression Scale Total 1 10/30/2020 The thought of harming myself has occurred to me . Never 10/30/2020 Area Deprivation Index Answer Date Ger rded National Score (1-100), lower number is lower ri sk 59 03/29/2022 State Score (1-10), lower number is lower risk N ot on file 03/29/2022 Data from: https://www.neighborhoodatlas.medicine.[facility]/. Last address used for calculation [address] 03/29/2022 Education Answer Date Recorded [...] Assessment Author No 01/11/2021 4:00 PM Gomez Castellaon RN * Are you blind or do [...] Assessment Author No 01/11/2021 4:00 PM Gomez Castlelano RN * Because of a physical, mental, [...] EDT Specialty Pharmacy [facility] [address] [place] [address] Drive [address] [place] [address] Pharmacist, Specialtygroup3 [address] [place] [address] [place] [address] refill - glatiramer MWF--lvm 03/29,04/08(wamb) 05/23/2025 1:30 PM EDT Office Visit OPHT Ophthalmology [address] [address] Maulik Toney, [address] [place] [address] optic neuritis and MS 07/20/2025 12:00 PM EDT Office Visit Family Medicine [facility] [address] [place] [address] MD [address] [place] [address] physical 09/30/2025 9:00 AM [facility] Center Hematology/Oncology [address] [place] [address] [place] [address] OCREVUS documented as of this encounter Visit Diagnoses Not on filedocumented in this encounter Additional Health Concerns Infection Onset Date Last Indicated Resolved Time COVID-19 Rule-Out 02/12/2023 02/12/2023 02/13/2023 1:49 AM EDT COVID-19 Confirmed 02/12/2023 02/12/2023 04/15/202 3 8:51 PM EDT documented as of this encounter Care Teams Cooling Tower Technician Relationship Specialty Start Date End Date Rashard Lane MD [address] [place] [address] PCP - General Family Medicine 12/09/19 Juan Miguel Caballero [facility] Pharmacy 05/30/24 Olimpia Turpin, ANIMATION CAMERA OPERATOR.[facility] [address] [place] [address] Stroboroma Operator Family Medicine 10/18/24 Maricruz Valdovinos PA-C [address] [place] [address] Stroboroma Operator Internal Medicine 10/18/24 11/11/24 documented as of this encounter
--- OUTSIDE RECORDS SUMMARY | 2025-04-11 15:10 | XMS_ITS | Encounter Summary ---
Author Organization [facility] Address [address] [place] [address] Care Team Providers Care Admission Nurse Name Role Phone Milton Earl MD Primary Care Provider [phone] Encounter Details Date Type Department Care Team (Late st Contact Info) Description 06/10/2017 FollowUp Telephone Encounter [facility] Sleep Center [address] [place] [address] [address] [place], [place] [address] Teresita Navarro Social History Tobacco Use Types Packs/Day Years [...] as of this encounter Progress Notes * Teresita Navarro - 06/10/2017 10:21 AM CDT Rain from Dr Hahn office called to scheduled consultation for sleep study. Scheduled pt for 06/13/17 at 8:00 am with Marjan Colon. documented in this encounter Plan of Treatment Not on file documented as of this encounter Visit Diagnoses Not on filedocumented in this encounter Care Teams Admission Nurse Relationship Specialty Start Date End Date Milton Earl MD PCP - General Family Medicine 09/30/15 04/20/23 documented as of this encounter
--- OUTSIDE RECORDS SUMMARY | 2025-04-11 15:10 | XMS_ITS | Encounter Summary ---
Author Organization [facility] Address [address] [place] [address] Care Team Providers Care Candy Dipper Name Role Phone Milton Earl MD Primary Care Provider [phone] Encounter Details Date Type Department Care Team (Late st Contact Info) Description 07/28/2017 FollowUp Telephone Encounter [facility] Sleep Center [address] [place] [address] [place] [address] Elizabeth Cotton Social [...] encounter Progress Notes * Elizabeth Cotton - 07/28/2017 10:18 AM CDT Rec'd referral from [facility] Neurology and patient is scheduled for a sleep study for 08/19 at 9 pm, letter with address, date and time mailed. documented in this encounter Plan of Treatment Not on file documented as of this encounter Visit Diagnoses Not on filedocumented in this encounter Care Teams Candy Dipper Relationship Specialty Start Date End Date Milton Earl MD PCP - General Family Medicine 09/30/15 04/20/23 documented as of this encounter
--- OUTSIDE RECORDS SUMMARY | 2025-04-11 15:11 | XMS_ITS | Encounter Summary ---
Author Organization [facility] Address [address] [place] [address] Care Team Providers Care Tortilla Maker Name Role Phone Janice Lane MD Primary Care Provider [phone] Encounter Details Date Type Department Care Team (Late st Contact Info) Description 08/24/2024 Clinisync Result Encounter [facility] External Department Unsolicited John Hu, DO [address] [place] [address] [place] [address] Social History Tobacco Use Types Packs/Day Years Used Date Smoking Tobacco: Never Smokeless Tobacco: Never Alcohol Use Standard Drinks/Week Comments Never 0 (1 standard drink = 0.6 oz pur e alcohol) Comments Yes Sex and Gender Information Value Date Recorded Sex Assigned at Female 08/10/2023 7:29 PM EDT Legal Sex Female 11:46 PM EDT Gender Identity Female 08/10/2023 7:29 PM EDT Sexual Orientation Not on file documented as of this encounter Plan of Treatment Upcoming Encounters Date Type Department Care Team (Late st Contact Info) Description 04/25/2025 2:45 PM EDT Office Visit [facility] NB OPHT [address] [place] [phone] Simón Powell, DO [address] [place] [address] 04/17/2026 1:00 PM EDT Office Visit [facility] BCP OB [address] [place] [address] Jahaira Byers PA [address] [place], [facility]11 documented as of this encounter Procedures Procedure Name Priority Date/Time Associated Diagnosis Comments US OB CERVICAL LENGTH 08/24/2024 12:51 PM EDT documented in this encounter Results * US OB CERVICAL LENGTH (08/24/2024 12:51 PM EDT) Anatomical Region Laterality Modality Other 08/24/2024 12:5 1 PM EDT Narrative 08/24/2024 12:53 PM EDT The [address] [address] Ultrasound Report Signed Patient: CAROL ANN ROMAN MR#: [id number] : 1985 Acct:[id number] Age/Sex: 39 / F ADM Date: 08/24/24 Loc: [facility] Attending Dr: John Hu D.O. Ordering Physician: John Hu D.O. Date of Service: 08/24/24 Procedure(s): US OB cervical length Accession Number(s): [id number] cc: John Hu D.O.; Physician,Non-Staff M.Jong The [address] [address] Patient Name: CAROL ANN ROMAN MRN: [id number] date: 1985 Sex: F Assigned Patient Location: [facility] Current Patient Location: [facility] Accession/Order Number: [id number] Exam Date: 08/24/2024 10:32 Report Date: 08/24/2024 12:51 At the request of: JOHN HU Procedure: US OB cervical length EXAMINATION: US OB cervical length HISTORY: SHORT CERVIX COMPARISON: 08/10/2024 FINDINGS: Presentation: Cephalic Cervix: 2 cm in length, closed US/US OB cervical length IMPRESSION: Short cervix measuring 2 cm in length, decreased from the prior exam Electronically authenticated by: JANICE ERWIN Date: 08/24/2024 12:51 Dictated By: Janice Erwin M.D. Signed By: 08/24/24 1253 DD/ 1251 TD/TT: Dynamometer Tester Engine: Procedure Note Radiology, Radiologist, MD - 08/24/2024 [place] [address] Ultrasound Report Signed Patient: CAROL ANN ROMAN FMR#: [id number] : 1985Acct:[id number] Age/Sex: 39 / FADM Date: 08/24/24 Loc: [facility] Attending Dr: John Hu D.O. Ordering Physician: John Hu D.O. Date of Service: 08/24/24 Procedure(s): US OB cervical length Accession Number(s): [id number] cc: John Hu D.O.; Physician,Non-Staff [place] The [place] [id number] Patient Name: CAROL ANN ROMAN MRN: [facility]:[id number] date: 1985 Sex: F Assigned Patient Location: [facility] Current Patient Location: [facility] Accession/Order Number: [id number] Exam Date: 08/24/2024 10:32 Report Date: 08/24/2024 12:51 At the request of: JOHN HU Procedure: US OB cervical length EXAMINATION: US OB cervical length HISTORY: SHORT CERVIX COMPARISON: 08/10/2024 FINDINGS: Presentation: Cephalic Cervix: 2 cm in length, closed US/US OB cervical length IMPRESSION: Short cervix measuring 2 cm in length, decreased from the prior exam Electronically authenticated by: JANICE ERWIN Date: 08/24/2024 12:51 Dictated By: Janice Erwin M.D. Signed By:08/24/24 1253 DD/ 1251 TD/TT: Dynamometer Tester Engine: us John Mayte DO [facility] Final Result documented in this encounter Visit Diagnoses Not on filedocumented in this encounter Care Teams Tortilla Maker Relationship Specialty [place] [address] [place] [address] PCP - General Pediatrics 10/26/23 documented as of this encounter
--- OUTSIDE RECORDS SUMMARY | 2025-04-11 15:11 | XMS_ITS | Encounter Summary ---
Author Organization [facility] Address [address] [place] [address] Care Team Providers Care Livestock Trader Name Role Phone Rashard Lane MD Primary Care Provider [phone] Encounter Details Date Type Department Care Team (Late st Contact Info) Description 10/05/2024 Clinisync Result Encounter [facility] External Department Unsolicited Clarke Hu, DO [address] [place] [address] [place] [address] Social History Tobacco Use Types Packs/Day Years [...] NB OPHT [address] [place] [phone] Simón Powell, DO [address] [place] [address] 04/17/2026 1:00 PM EDT Office Visit [facility] BCP OB [address] [facility] [place] [address] Jahaira Byers PA [address] [place] [address] documented as of this encounter Procedures Procedure Name Priority Date/Time Associated Diagnosis Comments US BIOPHYSICAL PROFILE WO NON STRESS TESTING 10/05/2024 3:40 PM EST documented in this encounter Results * US biophysical profile wo non stress testing (10/05/2024 3:40 PM EST) Anatomical Region Laterality Modality Body Ultrasound 10/05/2024 3:40 PM EST Narrative 10/05/2024 3:44 PM EST Interpreted by: Delgado Solis Indication ======== Suspected Problem with Growth. History [...] BPP and Dopplers. Delivery is recommended at [id number]. Please see note from today for details [...] EFW (oz) 13 oz EFW by: Hadlock ([id number]) Extended Radiotelegraph Operator 5.8 mm Head / Face / Neck [...] BPP and Dopplers. Delivery is recommended at [id number]. Please see note from today for details [...] EFW (oz) 13 oz EFW by: Hadlock ([id number]-LE-LY-FL) Extended Radiotelegraph Operator 5.8 mm Head / Face / Neck [...] BPP and Dopplers. Delivery is recommended at [id number]-35l8f. Please see note from today for details [...] EFW (oz) 13 oz EFW by: Hadlock ([id number]-FL) Extended Radiotelegraph Operator 5.8 mm Head / Face / Neck [...] Suboptimal view: limited by late gestational age Procedure Note Radiology, Radiologist, MD - 10/05/2024 Interpreted by: Delgado Solis Indication ======== Suspected Problem with Growth. History [...] Exam date GA BPD (mm) HC (mm) AC(mm) FL (mm) HL (mm) EFW (g) 06/14/2024 20w 5d 49.8 64% 183.3 41%164.9 71% 33.9 39% 33.5 54% 398 65% 08/17/2024 29w 6d 74.6 40% 276.2 24%259.2 51% 56.3 28% 961535% 09/17/2024 34w 2d 87.5 78% 311.8 29%288.9 17% 66.8 43% 436020% 10/05/2024 36w 6d 89.7 49% 326.4 27%304.3 6% 70.2 26% 542895% Impression ========= Patient here for growth ultrasound in a complicated by multiplesclerosis, AMA, and history of FGR in prior pregnancies - Decreased interval growth with EFW at 19%ile and AC at 7%ile - No malformations on today's limited survey - BPP 06/17, normal amniotic fluid - Normal UA Doppler indices Patient was counseled about today's findings. Maternal, , placental,and constitutional etiologies of FGR were reviewed. Recommend weekly BPPand Dopplers. Delivery is recommended at [id number]-38q8g. Please see note from today fordetails General Evaluation Cardiac activity present. FHR 142 bpm. movements: visualized.Presentation: cephalic Placenta: Placental site: posterior Umbilical cord: Cord vessels: 3 vessel cord. Insertion site: Suboptimal Amniotic fluid: Amount of AF: normal amount. MVP 4.0 cm. ZEN 10.9 cm. Q14.0 cm, Q2 3.7 cm, Q3 2.1 cm, [...] EFW (oz) 13 oz EFW by: Hadlock ([id number]) Extended Radiotelegraph Operator 5.8 mm Head / Face / Neck [...] Transabdominal ultrasound examination. View: Suboptimal view: limited bylate gestational age Indication ======== Suspected Problem with [...] Exam date GA BPD (mm) HC (mm) AC(mm) FL (mm) HL (mm) EFW (g) 06/14/2024 20w 5d 49.8 64% 183.3 41%164.9 71% 33.9 39% 33.5 54% 398 65% 08/17/2024 29w 6d 74.6 40% 276.2 24%259.2 51% 56.3 28% 202146% 09/17/2024 34w 2d 87.5 78% 311.8 29%288.9 17% 66.8 43% 765904% 10/05/2024 36w 6d 89.7 49% 326.4 27%304.3 6% 70.2 26% 063614% Impression ========= Patient here for growth ultrasound in a complicated by multiplesclerosis, AMA, and history of FGR in prior pregnancies - Decreased interval growth with EFW at 19%ile and AC at 7%ile - No malformations on today's limited survey - BPP 06/17, normal amniotic fluid - Normal UA Doppler indices Patient was counseled about today's findings. Maternal, , placental,and constitutional etiologies of FGR were reviewed. Recommend weekly BPPand Dopplers. Delivery is recommended at [id number]-01z1s. Please see note from today fordetails General Evaluation Cardiac activity present. FHR 142 bpm. movements: visualized.Presentation: cephalic Placenta: Placental site: posterior Umbilical cord: Cord vessels: 3 vessel cord. Insertion site: Suboptimal Amniotic fluid: Amount of AF: normal amount. MVP 4.0 cm. ZEN 10.9 cm. Q14.0 cm, Q2 3.7 cm, Q3 2.1 cm, [...] EFW (oz) 13 oz EFW by: Hadlock ([id number]-FL) Extended Radiotelegraph Operator 5.8 mm Head / Face / Neck [...] Transabdominal ultrasound examination. View: Suboptimal view: limited bylate gestational age Indication ======== Suspected Problem with [...] Exam date GA BPD (mm) HC (mm) AC(mm) FL (mm) HL (mm) EFW (g) 06/14/2024 20w 5d 49.8 64% 183.3 41%164.9 71% 33.9 39% 33.5 54% 398 65% 08/17/2024 29w 6d 74.6 40% 276.2 24%259.2 51% 56.3 28% 603009% 09/17/2024 34w 2d 87.5 78% 311.8 29%288.9 17% 66.8 43% 510533% 10/05/2024 36w 6d 89.7 49% 326.4 27%304.3 6% 70.2 26% 832139% Impression ========= Patient here for growth ultrasound in a complicated by multiplesclerosis, AMA, and history of FGR in prior pregnancies - Decreased interval growth with EFW at 19%ile and AC at 7%ile - No malformations on today's limited survey - BPP 06/17, normal amniotic fluid - Normal UA Doppler indices Patient was counseled about today's findings. Maternal, , placental,and constitutional etiologies of FGR were reviewed. Recommend weekly BPPand Dopplers. Delivery is recommended at [id number]-74x5x. Please see note from today fordetails General Evaluation Cardiac activity present. FHR 142 bpm. movements: visualized.Presentation: cephalic Placenta: Placental site: posterior Umbilical cord: Cord vessels: 3 vessel cord. Insertion site: Suboptimal Amniotic fluid: Amount of AF: normal amount. MVP 4.0 cm. ZEN 10.9 cm. Q14.0 cm, Q2 3.7 cm, Q3 2.1 cm, [...] EFW (oz) 13 oz EFW by: Hadlock ([id number]) Extended Radiotelegraph Operator 5.8 mm Head / Face / Neck [...] Transabdominal ultrasound examination. View: Suboptimal view: limited bylate gestational age us Clarke Hu DO IMG OB US PROCEDURES Final Resul t documented in this encounter Visit Diagnoses Not on filedocumented in this encounter Care Teams Livestock Trader Relationship Specialty Start [place] [address] [place] [address] PCP - General Pediatrics 10/26/23 documented as of this encounter
--- OUTSIDE RECORDS SUMMARY | 2025-04-11 15:11 | XMS_ITS | Encounter Summary ---
Author Organization [facility] Address [address] [place] [address] Care Team Providers Care Call Center Specialist Name Role Phone Rashard Lane MD Primary Care Provider [phone] Juan Miguel Caballero [facility] Unavailable Unavailable Olimpia Turpin ELECTROTYPE FINISHER.NEWSPAPER EDITOR MANAGING Unavailable Maricruz Valdovinos PA-C Unavailable [phone] Source Comments In the event this information is protected by the Federal Confidentiality of Alcohol and Drug AbusePatient Records regulations: The Federal rules restrict any use of the information to criminally investigate or prosecute any alcohol or drug abuse patient.[facility] Encounter Details Date Type Department Care Team (Late st Contact Info) Description 09/12/[address] [facility] [place] [address] [place], [place] [id number] Provider, Ccf Consult to Allergy/Immunology Social History Tobacco Use Types Packs/Day Years Used Date Smoking Tobacco: Never Smokeless Tobacco: Never Alcohol Use Standard Drinks/Week Comments Not Currently 0 (1 standard drink = 0.6 oz pur e alcohol) occas PHQ-2 Answer Date Recorded PHQ-2 score 0 02/08/2021 [place] Depression Scale Answer Date Recorded [place] Depression Scale Total 1 10/30/2020 The thought of harming myself has occurred to me . Never 10/30/2020 Area Deprivation Index Answer Date Ger rded National Score (1-100), lower number is lower ri sk Not on file 10/19/2020 State Score (1-10), lower number is lower risk N ot on file 10/19/2020 Data from: https://www.neighborhoodatlas.medicine.[facility]/. Last address used for calculation Not on file 10/19/2020 Comments No Sex and Gender Information Value [...] EDT Specialty Pharmacy [facility] [address] [facility] [address] [place], [place] [id number] Pharmacist, Specialtygroup3 [address] [place] [address] [place], [place] [id number] refill - glatiramer MWF--lvm 03/29,04/08(wamb) 05/23/2025 1:30 PM EDT Office Visit [facility] Ophthalmology [address] [address] Maulik Toney, DO [address] [place], [place] [id number] optic neuritis and MS 07/20/2025 12:00 PM EDT Office Visit Family Medicine [facility] [address] [place] [address] MD [address] [place] [address] physical 09/30/2025 9:00 AM [facility] Hematology/Oncology [address] [place] [address] [place] [address] OCREVUS documented as of this encounter Visit Diagnoses Not on filedocumented in this encounter Additional Health Concerns Infection Onset Date Last Indicated Resolved Time COVID-19 Rule-Out 02/12/2023 02/12/2023 02/13/2023 1:49 AM EDT COVID-19 Confirmed 02/12/2023 02/12/2023 8:51 PM EDT documented as of this encounter Care Teams Call Center Specialist Relationship Specialty Start Date End Date Rashard Lane MD [address] [place] [address] PCP - General Family Medicine 12/09/19 Juan Miguel Caballero, [facility] Pharmacy 05/30/24 Olimpia Turpin, ELECTROTYPE FINISHER.[facility] [address] [place] [address] [facility] Family Medicine 10/18/24 Maricruz Valdovinos PA-C [address] [place] [id number] [facility] Internal Medicine 10/18/24 11/11/24 documented as of this encounter
--- OUTSIDE RECORDS SUMMARY | 2025-04-11 15:11 | XMS_ITS | Encounter Summary ---
Author Organization [facility] Address [address] [place] [address] Care Team Providers Care Manager Ct Name Role Phone Rashard Lane MD Primary Care Provider [phone] Encounter Details Date Type Department Care Team (Late st Contact Info) Description 06/14/2024 Clinisync Result Encounter [facility] External Department Unsolicited Clarke Hu, DO [address] [place] [address] [place] [address] Social History Tobacco Use Types Packs/Day Years Used Date Smoking Tobacco: Never Alcohol Use Standard Drinks/Week Comments [...] NB OPHT [address] [place] [address] Simón Powell, DO [address] [place] [address] 04/17/2026 1:00 PM EDT Office Visit [facility] OB [address] [place] [address] Jahaira Byers PA [address] [facility] [address] [place], [place] [id number] documented as of this encounter Procedures Procedure Name Priority Date/Time Associated Diagnosis Comments US OB DETAIL ANATOMY 06/14/2024 1:58 PM EDT documented in this encounter Results * US OB detail anatomy (06/14/2024 1:58 PM EDT) Anatomical Region Laterality Modality Body Ultrasound 06/14/2024 1:58 PM EDT Narrative 06/14/2024 4:24 PM EDT Interpreted by: Rashard Louis Indication ======== Detailed Anatomy for AMA Multigravida, [...] and chest anatomy, abdominal organ specific anatomy, number/length/architecture of limbs and detailed evaluation of the [...] EFW (oz) 14 oz EFW by: Hadlock ([id number]) Extended Business Liaison Officer 5.9 mm CM 3.2 mm 4% Nicolaides [...] Normal LVOT view: Normal 3-vessel view: Normal 3-lyzmsc-wpgfhob view: Normal Heart / Thorax Situs: situs [...] leg: Normal Lt lower leg: Normal Lt foot: Normal Lt toes: Normal Position of hands: Normal Position of feet: Normal sex: male Wants to know sex: yes Genetic Screen Age 38 yrs Echogenic focus: no Ventriculomegaly: no Nuchal fold: normal Echogenic bowel: no Pyelectasis: no Short femur: no Short humerus: no Nasal bone: present Display risk: Risk at time of screening Maternal Structures Uterus / Cervix Uterus: Visualized Uterus details: Normal Fibroids: No fibroids identified Cervix: Visualized Cervix details: Short Approach: Transvaginal Cervical length 22.0 mm Ovaries / Tubes / Adnexa Rt ovary: Not visualized Lt ovary: Not visualized Method ====== Transabdominal and transvaginal ultrasound examination. View: Sufficient. Indication ======== Detailed Anatomy for AMA Multigravida, [...] and chest anatomy, abdominal organ specific anatomy, number/length/architecture of limbs and detailed evaluation of the [...] EFW (oz) 14 oz EFW by: Hadlock ([id number]) Extended Business Liaison Officer 5.9 mm CM 3.2 mm 4% Nicolaides [...] Normal LVOT view: Normal 3-vessel view: Normal 9-bfvhat-fltlbhd view: Normal Heart / Thorax Situs: situs [...] leg: Normal Lt lower leg: Normal Lt foot: Normal Lt toes: Normal Position of hands: Normal Position of feet: Normal sex: male Wants to know sex: yes Genetic Screen Age 38 yrs Echogenic focus: no Ventriculomegaly: no Nuchal fold: normal Echogenic bowel: no Pyelectasis: no Short femur: no Short humerus: no Nasal bone: present Display risk: Risk at time of screening Maternal Structures Uterus / Cervix Uterus: Visualized Uterus details: Normal Fibroids: No fibroids identified Cervix: Visualized Cervix details: Short Approach: Transvaginal Cervical length 22.0 mm Ovaries / Tubes / Adnexa Rt ovary: Not visualized Lt ovary: Not visualized Method ====== Transabdominal and transvaginal ultrasound examination. View: Sufficient. Procedure Note Radiology, Radiologist, - 06/14/2024 Interpreted by: Rashard Louis Indication ======== Detailed Anatomy for AMA Multigravida, Maternal Thyroid Disorder.Cervical Shortening. History ====== General History Height 168 [...] AMA, multiple sclerosis and FGR in a priorpregnancy (birthweight 2353 grams at 38 weeks). She has a history ofLEEP A targeted anatomic survey was indicated - biometry is consistent with the stated gestational age -Detailed anatomic evaluation of the brain/ventricles, face,heart/outflow tracts and chest anatomy, abdominal organ specific anatomy,number/length/architecture of limbs and detailed evaluation of the umbilical cord and placenta and otherfetal anatomy as clinically indicated was performed. -No malformations were identified on this comprehensive survey withinlimitations of sonographic evaluation at this gestational age. Theplacenta and adnexa appear within normal today. -Today's anatomic survey was completed The cervical length on transvaginal imaging was 2.2 cm without funnel. Thepatient had an MFM consultation to follow. General Evaluation Cardiac activity present. FHR 158 bpm. movements: visualized.Presentation: cephalic Placenta: Placental site: posterior, No Previa Seen Umbilical cord: Cord vessels: 3 vessel cord. Insertion site: placentalinsertion: normal Amniotic fluid: Amount of AF: normal [...] EFW (oz) 14 oz EFW by: Hadlock ([id number]) Extended Business Liaison Officer 5.9 mm CM 3.2 mm 4% Nicolaides [...] Normal LVOT view: Normal 3-vessel view: Normal 8-aaabij-ajdwsfx view: Normal Heart / Thorax Situs: situs [...] leg: Normal Lt lower leg: Normal Lt foot: Normal Lt toes: Normal Position of hands: Normal Position of feet: Normal sex: male Wants to know sex: yes Genetic Screen Age 38 yrs Echogenic focus: no Ventriculomegaly: no Nuchal fold: normal Echogenic bowel: no Pyelectasis: no Short femur: no Short humerus: no Nasal bone: present Display risk: Risk at time of screening Maternal Structures Uterus / Cervix Uterus: Visualized Uterus details: Normal Fibroids: No fibroids identified Cervix: Visualized Cervix details: Short Approach: Transvaginal Cervical length 22.0 mm Ovaries / Tubes / Adnexa Rt ovary: Not visualized Lt ovary: Not visualized Method ====== Transabdominal and transvaginal ultrasound examination. View:Sufficient. Indication ======== Detailed Anatomy for AMA Multigravida, Maternal Thyroid Disorder.Cervical Shortening. History ====== General History Height 168 [...] AMA, multiple sclerosis and FGR in a priorpregnancy (birthweight 2353 grams at 38 weeks). She has a history ofLEEP A targeted anatomic survey was indicated - biometry is consistent with the stated gestational age -Detailed anatomic evaluation of the brain/ventricles, face,heart/outflow tracts and chest anatomy, abdominal organ specific anatomy,number/length/architecture of limbs and detailed evaluation of the umbilical cord and placenta and otherfetal anatomy as clinically indicated was performed. -No malformations were identified on this comprehensive survey withinlimitations of sonographic evaluation at this gestational age. Theplacenta and adnexa appear within normal today. -Today's anatomic survey was completed The cervical length on transvaginal imaging was 2.2 cm without funnel. Thepatient had an MFM consultation to follow. General Evaluation Cardiac activity present. FHR 158 bpm. movements: visualized.Presentation: cephalic Placenta: Placental site: posterior, No Previa Seen Umbilical cord: Cord vessels: 3 vessel cord. Insertion site: placentalinsertion: normal Amniotic fluid: Amount of AF: normal [...] EFW (oz) 14 oz EFW by: Hadlock ([id number]) Extended Business Liaison Officer 5.9 mm CM 3.2 mm 4% Nicolaides [...] Normal LVOT view: Normal 3-vessel view: Normal 9-siairj-acnzkug view: Normal Heart / Thorax Situs: situs [...] leg: Normal Lt lower leg: Normal Lt foot: Normal Lt toes: Normal Position of hands: Normal Position of feet: Normal sex: male Wants to know sex: yes Genetic Screen Age 38 yrs Echogenic focus: no Ventriculomegaly: no Nuchal fold: normal Echogenic bowel: no Pyelectasis: no Short femur: no Short humerus: no Nasal bone: present Display risk: Risk at time of screening Maternal Structures Uterus / Cervix Uterus: Visualized Uterus details: Normal Fibroids: No fibroids identified Cervix: Visualized Cervix details: Short Approach: Transvaginal Cervical length 22.0 mm Ovaries / Tubes / Adnexa Rt ovary: Not visualized Lt ovary: Not visualized Method ====== Transabdominal and transvaginal ultrasound examination. View:Sufficient. us Clarke Mayte DO IMG OB US PROCEDURES Final Resul t documented in this encounter Visit Diagnoses Not on filedocumented in this encounter Care Teams Manager Ct Relationship Specialty [place] [address] [place] [address] PCP - General Pediatrics 10/26/23 documented as of this encounter
--- OUTSIDE RECORDS SUMMARY | 2025-04-11 15:11 | XMS_ITS | Encounter Summary ---
Author Organization [facility] Address [address] [place] [address] Care Team Providers Care Energy Broker Name Role Phone Rashard Lane MD Primary Care Provider [phone] Encounter Details Date Type Department Care Team (Late st Contact Info) Description 07/02/2024 Clinisync Result Encounter [facility] External Department Unsolicited Clarke Hu, DO [address] [place] [address] [place] [address] Social History Tobacco Use Types Packs/Day Years [...] NB OPHT [address] [place] [id number] Simón Powell, DO [address] [place] [address] 04/17/2026 1:00 PM EDT Office Visit [facility] OB [address] [place] [address] Jahaira Byers PA [address] [facility] [place] [address] documented as of this encounter Procedures Procedure Name Priority Date/Time Associated Diagnosis Comments US OB LIMITED 1+ FETUSES 07/02/2024 2:10 PM EDT documented in this encounter Results * US OB limited 1+ fetuses (07/02/2024 2:10 PM EDT) Anatomical Region Laterality Modality Body Ultrasound 07/02/2024 2:10 PM EDT Narrative 07/02/2024 4:28 PM EDT Interpreted by: Radha Batres Indication ======== Cervical [...] evaluation -There is no funneling Patient denies contractions/VB/LOF/pressure. PTL precautions reviewed and patient advised to [...] evaluation -There is no funneling Patient denies contractions/VB/LOF/pressure. PTL precautions reviewed and patient advised to [...] Transabdominal and transvaginal ultrasound examination. View: Good Procedure Note Radiology, Radiologist, - 07/02/2024 Interpreted by: Radha Batres Indication ======== Cervical Length Assessment, Cervical Shortening, AMA Multigravida,Maternal Thyroid Disorder. History ====== General History Height [...] -Transvaginal evaluation in addition to transabdominal scanning wasindicated and performed due to the increased accuracy of a transvaginalevaluation to determine cervical length. -Cervical length by transvaginal approach measures 22.9 mm (range 22 to 24mm) -It is stable as compared to the previous evaluation -There is no funneling Patient denies contractions/VB/LOF/pressure. PTL precautions reviewed andpatient advised to contact OB if any worrisome symptoms develop. Patientinstructed to continue precautions until her next OB appointment. Given gestational age(23.3 weeks), cervical length measurement will not be repeated. Thank youfor allowing us to participate in your patient's care. Follow-up ======== A repeat evaluation has been scheduled at 30 weeks for growth due to h/oFGR in prior General Evaluation Cardiac activity present. FHR 157 bpm. movements: visualized.Presentation: cephalic Placenta: Placental site: [...] ======== Cervical Length Assessment, Cervical Shortening, AMA Multigravida,Maternal Thyroid Disorder. History ====== General History Height [...] -Transvaginal evaluation in addition to transabdominal scanning wasindicated and performed due to the increased accuracy of a transvaginalevaluation to determine cervical length. -Cervical length by transvaginal approach measures 22.9 mm (range 22 to 24mm) -It is stable as compared to the previous evaluation -There is no funneling Patient denies contractions/VB/LOF/pressure. PTL precautions reviewed andpatient advised to contact OB if any worrisome symptoms develop. Patientinstructed to continue precautions until her next OB appointment. Given gestational age(23.3 weeks), cervical length measurement will not be repeated. Thank youfor allowing us to participate in your patient's care. Follow-up ======== A repeat evaluation has been scheduled at 30 weeks for growth due to h/oFGR in prior General Evaluation Cardiac activity present. FHR 157 bpm. movements: visualized.Presentation: cephalic Placenta: Placental site: [...] Transabdominal and transvaginal ultrasound examination. View: Good us Clarke [place]AD[place] OB US PROCEDURES Final Resul t documented in this encounter Visit Diagnoses Not on filedocumented in this encounter Care Teams Energy Broker Relationship Specialty [place] [address] [place] [address] PCP - General Pediatrics 10/26/23 documented as of this encounter
--- OUTSIDE RECORDS SUMMARY | 2025-04-11 15:11 | XMS_ITS | Encounter Summary ---
Author Organization [facility] Address [address] [place] [address] Care Team Providers Care Production Staff Worker Name Role Phone Rashard Lane MD Primary Care Provider [phone] Encounter Details Date Type Department Care Team (Late st Contact Info) Description 09/28/2024 Clinisync Result Encounter [facility] External Department Unsolicited John Hu, DO [address] [place] [address] [place] [address] Social History Tobacco Use Types Packs/Day Years [...] NB OPHT [address] [place] [id number] Simón Powell, DO [address] [place] [address] 04/17/2026 1:00 PM EDT Office Visit [facility] BCP OB [address] [place] [address] Jahaira Byers PA [address] [facility] [address] [place], [place] [address] documented as of this encounter Procedures Procedure Name Priority Date/Time Associated Diagnosis Comments US OB GROWTH 09/28/2024 6:35 AM EST documented in this encounter Results * US OB GROWTH (09/28/2024 6:35 AM EST) Anatomical Region Laterality Modality Other 09/28/2024 6:35 AM EST Narrative 09/28/2024 6:38 [place] [address] Ultrasound Report Signed Patient: CAROL ANN ROMAN MR#: [id number] : 1985 Acct:[id number] Age/Sex: 39 / F ADM Date: 09/27/24 Loc: [facility] Attending Dr: John Hu D.O. Ordering Physician: John Hu D.O. Date of Service: 09/27/24 Procedure(s): US OB growth Accession Number(s): [id number] cc: John Hu D.O.; Physician,Non-Staff M.Jong The [address] [address] Patient Name: CAROL ANN ROMAN MRN: [id number] date: 1985 Sex: F Assigned Patient Location: [facility] Current Patient Location: Accession/Order Number: [id number] Exam Date: 09/27/2024 13:40 Report Date: 09/28/2024 06:35 At the request of: JOHN HU Procedure: US OB growth EXAMINATION: US OB growth HISTORY: MULTIPLE SCLEROSIS, SHORT CERVIX COMPARISON: Ultrasound OB cervical length 09/21/2024 FINDINGS: Heart Rate: 156 bpm Amniotic Fluid Volume: 10.1 cm; within normal range. Number: 1 Position: CEPHALIC BIOMETRY: BPD: 8.61 cm; 34 weeks 5 days; 28.10 % HC: 31.54 cm; 35 weeks 3 days; 13.90 % AC: 29.99 cm; 34 weeks 0 days; 13.50 % FL: 6.74 cm; 34 weeks 5 days; 19 % EFW: 2378.84 g; 16.90 % FL/AC: 22.47 FL/BPD: 78.28 HC/AC: 1.05 GESTATIONAL AGE: Age by EDC: 35 weeks 5 days ELLIOTT by EDC: 2024-10-27 Age by US: 34 weeks 5 days ELLIOTT by US: 2024-11-03 US/US OB growth IMPRESSION: 1. Single live intrauterine with growth detailed above. Electronically authenticated by: OZ BRITT Date: 09/28/2024 06:35 Dictated By: Oz Britt M.D. Signed By: 09/28/2438 DD/ TD/TT: Pneumatic Press Hand: Procedure Note Radiology, Radiologist, MD - 09/28/2024 [place] [address] Ultrasound Report Signed Patient: CAROL ANN ROMAN R#: [id number] : 1985Acct:[id number] Age/Sex: 39 / FADM Date: 09/27/24 Loc: [facility] Attending Dr: John Hu D.O. Ordering Physician: John Hu D.O. Date of Service: 09/27/24 Procedure(s): US OB growth Accession Number(s): [id number] cc: John Hu D.O.; Physician,Non-Staff [place] The [place] [id number] Patient Name: CAROL ANN ROMAN MRN: [facility]:[id number] date: 1985 Sex: F Assigned Patient Location: [facility] Current Patient Location: Accession/Order Number: [id number] Exam Date: 09/27/2024 13:40 Report Date: 09/28/2024 06:35 At the request of: JOHN HU Procedure: US OB growth EXAMINATION: US OB growth HISTORY: MULTIPLE SCLEROSIS, SHORT CERVIX COMPARISON: Ultrasound OB cervical length 09/21/2024 FINDINGS: Heart Rate: 156 bpm Amniotic Fluid Volume: 10.1 cm; within normal range. Number: 1 Position: CEPHALIC BIOMETRY: BPD: 8.61 cm; 34 weeks 5 days; 28.10 % HC: 31.54 cm; 35 weeks 3 days; 13.90 % AC: 29.99 cm; 34 weeks 0 days; 13.50 % FL: 6.74 cm; 34 weeks 5 days; 19 % EFW: 2378.84 g; 16.90 % FL/AC: 22.47 FL/BPD: 78.28 HC/AC: 1.05 GESTATIONAL AGE: Age by EDC: 35 weeks 5 days ELLIOTT by EDC: 2024-10-27 Age by US: 34 weeks 5 days ELLIOTT by US: 2024-11-03 US/US OB growth IMPRESSION: 1. Single live intrauterine with growth detailed above. Electronically authenticated by: OZ BRITT Date: 09/28/2024 06:35 Dictated By: Oz Britt M.D. Signed By:09/28/2438 DD/ TD/TT: Pneumatic Press Hand: us John Hu DO [facility] Final Result documented in this encounter Visit Diagnoses Not on filedocumented in this encounter Care Teams Production Staff Worker Relationship Specialty [place] [address] [place] [address] PCP - General Pediatrics 10/26/23 documented as of this encounter
--- OUTSIDE RECORDS SUMMARY | 2025-04-11 15:11 | XMS_ITS | Encounter Summary ---
Author Organization [facility] Address [address] [place] [address] Care Team Providers Care Final Inspector And Tester Name Role Phone Rashard Lane MD Primary Care Provider [phone] Juan Miguel Caballero [facility] Unavailable Unavailable Olimpia Turpin GARBAGE TRUCK DRIVER.CITY SUPERINTENDENT OF SCHOOLS Unavailable Maricruz Valdovinos PA-C Unavailable [phone] Source Comments In the event this information is protected by the Federal Confidentiality of Alcohol and Drug AbusePatient Records regulations: The Federal rules restrict any use of the information to criminally investigate or prosecute any alcohol or drug abuse patient.[facility] Encounter Details Date Type Department Care Team (Late st Contact Info) Description 08/21/2021 Patient Msg CB/Gynecology [address] [place] [address] Provider, [facility] Appointment Social History Tobacco Use Types Packs/Day Years Used Date Smoking Tobacco: Never Smokeless Tobacco: Never Alcohol Use Standard Drinks/Week Comments Not Currently 0 (1 standard drink = 0.6 oz pur e alcohol) occas PHQ-2 Answer Date Recorded PHQ-2 score 0 02/08/2021 [place] Depression Scale Answer Date Recorded [place] Depression Scale Total 1 10/30/2020 The thought of harming myself has occurred to me . Never 10/30/2020 Area Deprivation Index Answer Date Ger rded National Score (1-100), lower number is lower ri sk Not on file 10/19/2020 State Score (1-10), lower number is lower risk N ot on file 10/19/2020 Data from: https://www.neighborhoodatlas.[facility]/. Last address used for calculation Not on [...] EDT Specialty Pharmacy [facility] [id number] [place] [address] Pharmacist, Specialtygroup3 [address] [place] [address] [place] [address] refill - glatiramer MWF--lvm 03/29,04/08(wamb) 05/23/2025 1:30 PM EDT Office Visit [facility] Ophthalmology [address] [address] Maulik Toney, DO [address] [place], [place] [id number] optic neuritis and MS 07/20/2025 12:00 PM EDT Office Visit Family Medicine [facility] [address] [place] [address] MD [address] [place] [address] physical 09/30/2025 9:00 AM [facility] Hematology/Oncology [address] [place] [address] [place] [address] [employer] documented as of this encounter Visit Diagnoses Not on filedocumented in this encounter Additional Health Concerns Infection Onset Date Last Indicated Resolved Time COVID-19 Rule-Out 02/12/2023 02/12/2023 02/13/2023 1:49 AM EDT COVID-19 Confirmed 02/12/2023 02/12/2023 8:51 PM EDT documented as of this encounter Care Teams Final Inspector And Tester Relationship Specialty Start Date End Date Rashard Lane MD [address] [place] [address] PCP - General Family Medicine 12/09/19 Juan Miguel Caballero, [facility] 05/30/24 Olimpia Turpin, GARBAGE TRUCK DRIVER.CITY SUPERINTENDENT [employer]S [address] [facility] [place] [address] Steam Crane Operator Family Medicine 10/18/24 Maricruz Valdovinos PA-C [address] [place] [id number] Steam Crane Operator Internal Medicine 10/18/24 11/11/24 documented as of this encounter
--- OUTSIDE RECORDS SUMMARY | 2025-04-11 15:11 | XMS_ITS | Clinical Summary ---
Author Organization [facility] Address [id number] [place] [address] Care Team Providers Care Quality Control Name Role Phone DomingoRashard Sneha Primary Care Provider [phone] Allergies Active Allergy Reactions Criticality Noted Date Comments Gluten 03/19/2019 Constipation Chest pain Boils Stomach upset Lecithin 03/19/2019 More constipated Soy Headache 05/03/2020 Medications ascorbic acid, vitamin C, (VITAMIN C) 1000 mg tablet Take 1,000 mg by mouth daily. supplement Active B-complex with vitamin C tablet Take 1 tablet by mouth daily. supplement Active wszmueog-zpve-Z A-calcium &mins (THERAGRAN-M) 9 mg iron-400 mcg tablet Take 1 tablet by mouth daily. Supplement Active famotidine (PEPCID) 10 mg tablet Take 10 mg by mouth 2 (two) times a day. Active ZINC ORAL Take by mouth daily. Active cholecalciferol , vitamin D3, 50,000 units tablet Take 1 tablet (50,000 Units total) by mouth once a week. 4 tablet 11 0 Active natalizumab (TYSABRI) 300 mg/15 mL injection Inject into the appropriate muscle. Once a month Active magnesium citrate 100 mg tablet Take 100 mg by mouth 2 (two) times a day. 60 tablet 5 0 Active glatiramer (COPAXONE) 20 mg/mL syringe Inject 20 mg under the skin daily. Active azelastine (ASTELIN) 137 mcg (0.1 %) nasal spray Administer 1 spray into each nostril 2 (two) times a day. Use in each nostril as directed Active doxylamine-pyri doxine, vit B6, 20-20 mg tablet,IR & delay rel,biphasicInd ications:Primar y insomnia Take 1 tablet by mouth once daily at bedtime. 30 tablet 3 0 Active Active Problems Problem Noted Date Diagnosed Date Urinary hesitancy 07/14/2020 Urgency incontinence 07/14/2020 Overview (07/14/2020): . We discussed the pathophysiology of multiple sclerosis on bladder function with highly variable symptoms based on the location. We also discussed the need for further monitoring to ensure the new pathology does not developed with progression. Will plan for Video urodynamics to evaluate storage in voiding function, after which we can develop a bladder regimen for her to both protect her renal function prevent her incontinence Multiple sclerosis 07/14/2020 Overview (07/14/2020): New cervical and brainstem lesions noted on most recent MRI in December of 2019 Neurogenic bladder 07/14/2020 Overview (07/14/2020): On most recent creatinine was normal. Will obtain renal ultrasound at her convenience to assess for any upper tract changes Multiple sclerosis, primary progressive 01/21/20 20 Constipation 10/06/2019 Insomnia 10/06/2019 Debility 10/06/2019 Gait difficulty 10/06/2019 Exacerbation of multiple sclerosis 10/02/2019 Comments Yes Immunizations No known immunizations Family History Medical History Relation Name Comments Diabetes Mother Prostate cancer Paternal Grandfather Multiple sclerosis Paternal cousin Prostate cancer Sister Relation Name Status Comments Brother Alive Father Alive Mother Alive Paternal Grandfather Alive Paternal Grandmother Alive Paternal cousin Sister Alive Social History Tobacco Use Types Packs/Day Years Used Date Smoking Tobacco: Never Smokeless Tobacco: Never Tobacco Cessation:Counseling Given: No Alcohol Use Standard Drinks/Week Comments Not Currently 0 (1 standard drink = 0.6 oz pur e alcohol) social AUDIT-C Answer Date Recorded Frequency of Alcohol Consumption Never 10/01/2019 Average Number of Drinks Not on file 019 Frequency of Binge Drinking Not on file 09/11 Childcare Answer Date Recorded Childcare Unknown 10/01/2019 Employment Answer Date Recorded Employment Unknown 10/01/2019 Purpose - Life Answer Date Recorded Purpose and direction in life Unknown Comments Yes Sex and Gender Information Value Date Recorded Sex Assigned at Not on file Legal Sex Female 9:08 PM EST Gender Identity Not on file Sexual Orientation Not on file Last Filed Vital Signs Vital Sign Reading Time Taken Comments Blood Pressure 118/92 10/30/2020 3:44 PM EST Pulse 109 10/30/2020 3:44 PM EST Temperature 37 C (98.6 F) 06/26/2020 7:17 AM EDT Respiratory Rate 16 06/26/2020 7:17 AM EDT Oxygen Saturation 100% 06/26/2020 7:17 AM EDT Inhaled Oxygen Concentration - - Weight 56.7 kg (125 lb 1.6 oz) 10/30/2020 3:44 P M EST Height 167.6 cm (5' 6 ) 10/30/2020 3:44 PM EST Body Mass Index 20.19 10/30/2020 3:44 PM EST Plan of Treatment Health Maintenance Due Date Last Done Comments Depression Screening 1997 Tobacco Screening 1997 Adult BMI Screening 2003 DTaP,Tdap and Td Vaccines (1 - Tdap) 2004 Pap Smear 2006 Influenza Vaccine 07/11/2025 Goals Goal Patient Goal Type Associated Problems Recent Progress Patient-Stated? Author Discharge home with outpatient therapy services General Yes Cecille Rodrigues, RN Note: Evaluation of progress towards goal: Patient stated her goal is to have improved memory, ability to sisal picker and hold items with bilateral hands, to have improved vision, and have no difficulty swallowing prior to discharging home. Medical Devices Not on file Insurance MEDICAID [place] [employer] MEDICARE Advance Directives * Full Code (Latest Code Status on File) Date Activated Date Inactivated Comments 10/05/2019 5:00 PM 10/22/2019 6:50 PM * Full Code Date Activated Date Inactivated Comments 10/02/2019 4:56 AM 10/05/2019 4:45 PM Care Teams Quality Control Relationship Specialty Start Date End Date [address] [address] [place] [address] PCP - General Family Medicine 12/22/19
--- OUTSIDE RECORDS SUMMARY | 2025-04-11 15:11 | XMS_ITS | Encounter Summary ---
Author Organization [facility] Address [address] [place] [address] Care Team Providers Care Animal Care Taker Name Role Phone Rashard Lane MD Primary Care Provider [phone] Encounter Details Date Type Department Care Team (Late st Contact Info) Description 10/06/2024 Clinisync Result Encounter [facility] External Department Unsolicited John Hu, DO [address] [place] [address] [place] [address] Social History Tobacco Use Types Packs/Day Years [...] NB OPHT [address] [place] [phone] Simón Powell, DO [address] [place] [address] 04/17/2026 1:00 PM EDT Office Visit [facility] OB [address] [place] [address] Jahaira Byers PA [address] [place], [place] [address] documented as of this encounter Procedures Procedure Name Priority Date/Time Associated Diagnosis Comments US OB BPP W NON-STRESS 10/06/2024 6:28 AM EST documented in this encounter Results * US OB BPP W NON-STRESS (10/06/2024 6:28 AM EST) Anatomical Region Laterality Modality Other 10/06/2024 6:28 AM EST Narrative 10/06/2024 6:30 AM EST The [address] [address] Ultrasound Report Signed Patient: CAROL ANN ROMAN MR#: [id number] : 1985 Acct:[id number] Age/Sex: 39 / F ADM Date: 10/05/24 Loc: US Attending Dr: John Hu D.O. Ordering Physician: John Hu D.O. Date of Service: 10/05/24 Procedure(s): US OB BPP w non-stress Accession Number(s): [id number] cc: John Hu D.O.; Physician,Non-Staff M.Jong The [address] [address] Patient Name: CAROL ANN ROMAN MRN: [id number] date: 1985 Sex: F Assigned Patient Location: [facility] Current Patient Location: Accession/Order Number: [id number] Exam Date: 10/05/2024 17:37 Report Date: 10/06/2024 06:28 At the request of: JOHN HU Procedure: US OB BPP w non-stress EXAMINATION: US OB BPP w non-stress HISTORY:SHORT CERVIX AFFECTING O26.879 COMPARISON: Ultrasound OB biophysical 09/28/2024 TECHNIQUE: Ultrasound biophysical profile was performed in the radiology department. BREATHING MOVEMENTS: 2 GROSS BODY MOVEMENTS: 2 TONE: 2 QUALITATIVE AMNIOTIC FLUID VOLUME: 2 PRESENTATION: CEPHALIC HEART RATE: 150.84 bpm AMNIOTIC FLUID VOLUME: 9.86 cm GESTATIONAL AGE: 36 weeks 6 days US/US OB BPP w non-stress IMPRESSION: Total biophysical profile score: 8 Electronically authenticated by: OZ BRITT Date: 10/06/2024 06:28 Dictated By: Oz Britt M.D. Signed By: 10/06/24629 DD/ 7 TD/TT: Primary Care Pediatrician: Procedure Note Radiology, Radiologist, MD - 10/06/2024 [place] [address] Ultrasound Report Signed Patient: CAROL ANN ROMAN FMR#: [id number] : 1985Acct:[id number] Age/Sex: 39 / FADM Date: 10/05/24 Loc: US Attending Dr: John Hu D.O. Ordering Physician: John Hu D.O. Date of Service: 10/05/24 Procedure(s): US OB BPP w non-stress Accession Number(s): [id number] cc: John Hu D.O.; Physician,Non-Staff [place] The [place] [id number] Patient Name: CAROL ANN ROMAN MRN: [id number] date: 1985 Sex: F Assigned Patient Location: [facility] Current Patient Location: Accession/Order Number: [id number] Exam Date: 10/05/2024 17:37 Report Date: 10/06/2024 06:28 At the request of: JOHN HU Procedure: US OB BPP w non-stress EXAMINATION: US OB BPP w non-stress HISTORY:SHORT CERVIX AFFECTING O26.879 COMPARISON: Ultrasound OB biophysical 09/28/2024 TECHNIQUE: Ultrasound biophysical profile was performed in the radiology department. BREATHING MOVEMENTS: 2 GROSS BODY MOVEMENTS: 2 TONE: 2 QUALITATIVE AMNIOTIC FLUID VOLUME: 2 PRESENTATION: CEPHALIC HEART RATE: 150.84 bpm AMNIOTIC FLUID VOLUME: 9.86 cm GESTATIONAL AGE: 36 weeks 6 days US/US OB BPP w non-stress IMPRESSION: Total biophysical profile score: 8 Electronically authenticated by: OZ BRITT Date: 10/06/2024 06:28 Dictated By: Oz Britt M.D. Signed By:10/06/24629 DD/ 7 TD/TT: Primary Care Pediatrician: us John Hu DO [facility] Final Result documented in this encounter Visit Diagnoses Not on filedocumented in this encounter Care Teams Animal Care Taker Relationship Specialty [place] [address] [place] [address] PCP - General Pediatrics 10/26/23 documented as of this encounter
--- OUTSIDE RECORDS SUMMARY | 2025-04-11 15:11 | XMS_ITS | Encounter Summary ---
Author Organization [facility] Address [address] [place] [address] Care Team Providers Care Switch Repairer Name Role Phone Janice Lane MD Primary Care Provider [phone] Encounter Details Date Type Department Care Team (Late st Contact Info) Description 07/27/2024 Clinisync Result Encounter [facility] External Department Unsolicited John Hu, DO [address] [place] [address] [place] [address] Social History Tobacco Use Types Packs/Day Years [...] NB OPHT [address] [place] [phone] Simón Powell, DO [address] [place] [address] 04/17/2026 1:00 PM EDT Office Visit [facility] BCP OB [address] [place] [address] Jahaira Byers PA [address] [place], [facility] documented as of this encounter Procedures Procedure Name Priority Date/Time Associated Diagnosis Comments US OB CERVICAL LENGTH 07/27/2024 12:50 PM EDT documented in this encounter Results * US OB CERVICAL LENGTH (07/27/2024 12:50 PM EDT) Anatomical Region Laterality Modality Other 07/27/2024 12:5 0 PM EDT Narrative 07/27/2024 12:52 PM EDT The [address] [address] Ultrasound Report Signed Patient: CAROL ANN ROMAN MR#: [id number] : 1985 Acct:[id number] Age/Sex: 38 / F ADM Date: 07/27/24 Loc: [facility] Attending Dr: John Hu D.O. Ordering Physician: John Hu D.O. Date of Service: 07/27/24 Procedure(s): US OB cervical length Accession Number(s): [id number] cc: John Hu D.O.; Physician,Non-Staff MJoana The [address] [address] Patient Name: CAROL ANN ROMAN MRN: [id number] date: 1985 Sex: F Assigned Patient Location: [facility] Current Patient Location: [facility] Accession/Order Number: [id number] Exam Date: 07/27/2024 09:32 Report Date: 07/27/2024 12:50 At the request of: JOHN HU Procedure: US OB cervical length EXAMINATION: US OB cervical length HISTORY: SHORT CERVIX, HISTORY OF LEEP COMPARISON: 06/08/2024 FINDINGS: presentation: Cephalic Cervix: 2.1 cm, closed US/US OB cervical length IMPRESSION: Short cervix measuring 2.1 cm in length Electronically authenticated by: JANICE ERWIN Date: 07/27/2024 12:50 Dictated By: Janice Erwin M.D. Signed By: 07/27/24 1252 DD/ 1250 TD/TT: Transportation Maintenance Supervisor: Procedure Note Radiology, Radiologist, MD - 07/27/2024 [place] [address] Ultrasound Report Signed Patient: CAROL ANN ROMAN FMR#: [id number] : 1985Acct:[id number] Age/Sex: 38 / FADM Date: 07/27/24 Loc: [facility] Attending Dr: John Hu D.O. Ordering Physician: John Hu D.O. Date of Service: 07/27/24 Procedure(s): US OB cervical length Accession Number(s): [id number] cc: John Hu D.O.; Physician,Non-Staff [place] The [place] [id number] Patient Name: CAROL ANN ROMAN MRN: [facility]:[id number] date: 1985 Sex: F Assigned Patient Location: [facility] Current Patient Location: [facility] Accession/Order Number: [id number] Exam Date: 07/27/2024 09:32 Report Date: 07/27/2024 12:50 At the request of: JOHN HU Procedure: US OB cervical length EXAMINATION: US OB cervical length HISTORY: SHORT CERVIX, HISTORY OF LEEP COMPARISON: 06/08/2024 FINDINGS: presentation: Cephalic Cervix: 2.1 cm, closed US/US OB cervical length IMPRESSION: Short cervix measuring 2.1 cm in length Electronically authenticated by: JANICE ERWIN Date: 07/27/2024 12:50 Dictated By: Janice Erwin M.D. Signed By:07/27/24 1252 DD/ 1250 TD/TT: Transportation Maintenance Supervisor: us John Mayte DO [facility] Final Result documented in this encounter Visit Diagnoses Not on filedocumented in this encounter Care Teams Switch Repairer Relationship Specialty [place] [address] [place] [address] PCP - General Pediatrics 10/26/23 documented as of this encounter
--- OUTSIDE RECORDS SUMMARY | 2025-04-11 15:11 | XMS_ITS | Encounter Summary ---
Author Organization [facility] Address [address] [place] [address] Care Team Providers Care Supervisor [employer] Name Role Phone Janice Lane MD Primary Care Provider [phone] Encounter Details Date Type Department Care Team (Late st Contact Info) Description 08/10/2024 Clinisync Result Encounter [facility] External Department Unsolicited John Hu, DO [address] [place] [address] [place] [address] Social History Tobacco Use Types Packs/Day Years [...] NB OPHT [address] [place] [phone] Simón Powell, DO [address] [place] [address] 04/17/2026 1:00 PM EDT Office Visit [facility] BCP OB [address] [address] Jahaira Byers PA [address] [place], [facility] documented as of this encounter Procedures Procedure Name Priority Date/Time Associated Diagnosis Comments US OB CERVICAL LENGTH 08/10/2024 9:53 AM EDT documented in this encounter Results * US OB CERVICAL LENGTH (08/10/2024 9:53 AM EDT) Anatomical Region Laterality Modality Other 08/10/2024 9:53 AM EDT Narrative 08/10/2024 9:55 AM EDT The [address] [address] Ultrasound Report Signed Patient: CAROL ANN ROMAN MR#: [id number] : 1985 Acct:[id number] Age/Sex: 39 / F ADM Date: 08/10/24 Loc: [facility] Attending Dr: John Hu D.O. Ordering Physician: John Hu D.O. Date of Service: 08/10/24 Procedure(s): US OB cervical length Accession Number(s): [id number] cc: John Hu D.O.; Physician,Non-Staff MJoana The [address] [address] Patient Name: CAROL ANN ROMAN MRN: [id number] date: 1985 Sex: F Assigned Patient Location: [facility] Current Patient Location: [facility] Accession/Order Number: [id number] Exam Date: 08/10/2024 09:08 Report Date: 08/10/2024 09:53 At the request of: JOHN HU Procedure: US OB cervical length EXAMINATION: US OB cervical length HISTORY: HISTORY OF LEEP COMPARISON: 07/27/2024 FINDINGS: position: Cephalic Cervix: 2.4 cm, closed US/US OB cervical length IMPRESSION: Short closed cervix measuring 2.4 cm in length Electronically authenticated by: JANICE ERWIN Date: 08/10/2024 09:53 Dictated By: Janice Erwin M.D. Signed By: 08/10/2455 DD/ 2 TD/TT: Mat Puncher: Procedure Note Radiology, Radiologist, MD - 08/10/2024 [place] [address] Ultrasound Report Signed Patient: CAROL ANN ROMAN FMR#: [id number] : 1985Acct:[id number] Age/Sex: 39 / FADM Date: 08/10/24 Loc: [facility] Attending Dr: John Hu D.O. Ordering Physician: John Hu D.O. Date of Service: 08/10/24 Procedure(s): US OB cervical length Accession Number(s): [id number] cc: John Hu D.O.; Physician,Non-Staff [place] The [place] [id number] Patient Name: CAROL ANN ROMAN MRN: [facility]:[id number] date: 1985 Sex: F Assigned Patient Location: [facility] Current Patient Location: [facility] Accession/Order Number: [id number] Exam Date: 08/10/2024 09:08 Report Date: 08/10/2024 09:53 At the request of: JOHN HU Procedure: US OB cervical length EXAMINATION: US OB cervical length HISTORY: HISTORY OF LEEP COMPARISON: 07/27/2024 FINDINGS: position: Cephalic Cervix: 2.4 cm, closed US/US OB cervical length IMPRESSION: Short closed cervix measuring 2.4 cm in length Electronically authenticated by: JANICE ERWIN Date: 08/10/2024 09:53 Dictated By: Janice Erwin M.D. Signed By:08/10/24954 DD/ 2 TD/TT: Mat Puncher: us John Mayte DO [facility] Final Result documented in this encounter Visit Diagnoses Not on filedocumented in this encounter Care Teams Supervisor [employer] Relationship Specialty [place] [address] [place] [address] PCP - General Pediatrics 10/26/23 documented as of this encounter
--- OUTSIDE RECORDS SUMMARY | 2025-04-11 15:11 | XMS_ITS | Encounter Summary ---
Author Organization [facility] Address [address] [place] [address] Care Team Providers Care Census Taker Name Role Phone Rashard Lane MD Primary Care Provider [phone] Encounter Details Date Type Department Care Team (Late st Contact Info) Description 07/02/2024 Clinisync Result Encounter [facility] External Department Unsolicited Clarke Hu, DO [address] [place] [address] [place] [address] Social History Tobacco Use Types Packs/Day Years [...] NB OPHT [address] [place] [phone] Simón Powell, DO [address] [place] [address] 04/17/2026 1:00 PM EDT Office Visit [facility] BCP OB [address] [facility] [place] [address] Jahaira Byers PA [address] [place] [address] documented as of this encounter Procedures Procedure Name Priority Date/Time Associated Diagnosis Comments US OB TRANSVAGINAL 07/02/2024 4: 01 PM EDT documented in this encounter Results * US OB transvaginal (07/02/2024 4:01 PM EDT) Anatomical Region Laterality Modality Body Ultrasound 07/02/2024 4:01 PM EDT Narrative 07/02/2024 4:28 PM EDT [...] on filedocumented in this encounter Care Teams Census Taker Relationship Specialty [place] [address] [place] [address] PCP - General Pediatrics 10/26/23 documented as of this encounter
--- OUTSIDE RECORDS SUMMARY | 2025-04-11 15:11 | XMS_ITS | Encounter Summary ---
Author Organization [facility] Address [facility] [id number] [address] [place] [address] Care Team Providers Care Tool And Gauge Inspector Name Role Phone DomingoRashard parks nSeha Primary Care Provider [phone] Encounter Details Date Type Department Care Team (Late st Contact Info) Description 01/29/2021 Abstract [facility] - Medical Oncology [address] [place] [phone] Sofy Richards Social History Tobacco Use Types Packs/Day Years [...] on file Sexual Orientation Not on file COVID-19 Exposure Response Date Recorded In the last month, have you been in contact with someone who was confirmed or suspected to have Coronavirus / COVID-19? No / Unsure 01/08/2021 7:13 AM EST documented as of this encounter Plan of Treatment Not on file documented as of this encounter Goals Goal Patient Goal Type Associated Problems Recent Progress Patient-Stated? 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 documented as of this encounter Visit Diagnoses Not on filedocumented in this encounter Care Teams Tool And Gauge Inspector Relationship Specialty Start Date End Date [address] [address] [place] [address] PCP - General Family Medicine 12/22/19 documented as of this encounter
--- OUTSIDE RECORDS SUMMARY | 2025-04-11 15:11 | XMS_ITS | Encounter Summary ---
Author Organization [facility] Address [address] [place] [address] Care Team Providers Care Leak Operator Paraffin Plant Name Role Phone Janice Lane MD Primary Care Provider [phone] Encounter Details Date Type Department Care Team (Late st Contact Info) Description 06/08/2024 Clinisync Result Encounter [facility] External Department Unsolicited John Hu, DO [address] [place] [address] [place] [address] Social History Tobacco Use Types Packs/Day Years [...] NB OPHT [address] [place] [address] Simón Powell, DO [address] [place] [address] 04/17/2026 1:00 PM EDT Office Visit [facility] BCP OB [address] [place] [phone] Jahaira Byers PA [address] [facility] [address] [place], [facility]11 documented as of this encounter Procedures Procedure Name Priority Date/Time Associated Diagnosis Comments US OB CERVICAL LENGTH 06/08/2024 10:18 AM EDT documented in this encounter Results * US OB CERVICAL LENGTH (06/08/2024 10:18 AM EDT) Anatomical Region Laterality Modality Other 06/08/2024 10:1 8 AM EDT Narrative 06/08/2024 10:21 AM EDT [address] [address] Ultrasound Report Signed Patient: CAROL ANN ROMAN MR#: [id number] : 1985 Acct:[id number] Age/Sex: 38 / F ADM Date: 06/08/24 Loc: [facility] Attending Dr: John Hu D.O. Ordering Physician: John Hu D.O. Date of Service: 06/08/24 Procedure(s): US OB cervical length Accession Number(s): [id number] cc: John Hu D.O.; Physician,Non-Staff MJoana The [address] [address] Patient Name: CAROL ANN ROMAN MRN: [id number] date: 1985 Sex: F Assigned Patient Location: [facility] Current Patient Location: [facility] Accession/Order Number: [id number] Exam Date: 06/08/2024 08:35 Report Date: 06/08/2024 10:18 At the request of: JOHN HU Procedure: US OB cervical length EXAMINATION: US OB cervical length HISTORY: SHORT CERVIX, HISTORY OF LEEP COMPARISON: 05/25/2024 FINDINGS: position: Cephalic Cervix: 2.4 cm, closed Clinical age: 19 weeks 6 days US/US OB cervical length IMPRESSION: Closed short cervix measuring 2.4 cm in length. The cervical length is decreased from the prior exam Electronically authenticated by: JANICE ERWIN Date: 06/08/2024 10:18 Dictated By: Janice Erwin M.D. Signed By: 06/08/24 1021 DD/ 1018 TD/TT: Canopy Stringer: Procedure Note Radiology, Radiologist, MD - 06/08/2024 [place] [address] Ultrasound Report Signed Patient: CAROL ANN ROMAN FMR#: [id number] : 1985Acct:[id number] Age/Sex: 38 / FADM Date: 06/08/24 Loc: [facility] Attending Dr: John Hu D.O. Ordering Physician: John Hu D.O. Date of Service: 06/08/24 Procedure(s): US OB cervical length Accession Number(s): [id number] cc: John Hu D.O.; Physician,Non-Staff [place] The [place] [id number] Patient Name: CAROL ANN ROMAN MRN: [id number] date: 1985 Sex: F Assigned Patient Location: [facility] Current Patient Location: [facility] Accession/Order Number: [id number] Exam Date: 06/08/2024 08:35 Report Date: 06/08/2024 10:18 At the request of: JOHN HU Procedure: US OB cervical length EXAMINATION: US OB cervical length HISTORY: SHORT CERVIX, HISTORY OF LEEP COMPARISON: 05/25/2024 FINDINGS: position: Cephalic Cervix: 2.4 cm, closed Clinical age: 19 weeks 6 days US/US OB cervical length IMPRESSION: Closed short cervix measuring 2.4 cm in length. The cervical length is decreased from the prior exam Electronically authenticated by: JANICE ERWIN Date: 06/08/2024 10:18 Dictated By: Janice Erwin M.D. Signed By:06/08/24 1021 DD/ 1018 TD/TT: Canopy Stringer: us John Mayte DO [facility] Final Result documented in this encounter Visit Diagnoses Not on filedocumented in this encounter Care Teams Leak Operator Paraffin Plant Relationship Specialty [place] [address] [place] [address] PCP - General Pediatrics 10/26/23 documented as of this encounter
--- OUTSIDE RECORDS SUMMARY | 2025-04-11 15:11 | XMS_ITS | Encounter Summary ---
Author Organization [facility] Address [address] [place] [address] Care Team Providers Care Toddler Teacher Name Role Phone Rashard Lane MD Primary Care Provider [phone] Encounter Details Date Type Department Care Team (Late Contact Info) Description 10/06/2024 Abstract [facility] BCP OB [address] [place] [address] Clarke Hu, DO [address] [place], [place] [id number] Social History Tobacco Use Types Packs/Day Years [...] Encounters Date Type Department Care Team (Late Contact Info) Description 04/25/2025 2:45 PM EDT Office Visit [facility] NB OPHT [address] [place] [address] Simón [place], [address] [place] [address] 04/17/2026 1:00 PM EDT Office Visit [facility] BCP OB [address] [place] [address] Jahaira Byers PA [address] [place] [address] documented as of this encounter Visit Diagnoses Not on filedocumented in this encounter Care Teams Toddler Teacher Relationship Specialty [place] [address] [place] [address] PCP - General Pediatrics 10/26/23 documented as of this encounter
--- OUTSIDE RECORDS SUMMARY | 2025-04-11 15:11 | XMS_ITS | Encounter Summary ---
Author Organization [facility] Address [address] [place] [address] Care Team Providers Care Computer Tech Name Role Phone Rashard Lane MD Primary Care Provider [phone] Encounter Details Date Type Department Care Team (Late st Contact Info) Description 10/12/2024 Clinisync Result Encounter [facility] External Department Unsolicited Clarke Hu, DO [address] [place] [address] [place] [address] Social History Tobacco Use Types Packs/Day Years [...] NB OPHT [address] [place] [address] Simón [place], DO [address] [place] [address] 04/17/2026 1:00 PM EDT Office Visit [facility] BCP OB [address] [facility] [place] [address] Jahaira Byers PA [address] [facility] [place] [address] documented as of this encounter Procedures Procedure Name Priority Date/Time Associated Diagnosis Comments US BIOPHYSICAL PROFILE WO NON STRESS TESTING 10/12/2024 11:53 AM EST documented in this encounter Results * US biophysical profile wo non stress testing (10/12/2024 11:53 AM EST) Anatomical Region Laterality Modality Body Ultrasound 10/12/2024 11:5 3 AM EST Narrative 10/12/2024 3:55 PM EST Interpreted by: Radha Batres Indication ======== BPP [...] - Normal amniotic fluid volume - BPP 8 -Normal doppler indices with an RI at the 62% percentile Reassuring status based on today's assessment. There are no critical findings today to indicate delivery. [facility] visit prior to US today. Scheduled [...] Method ====== Transabdominal ultrasound examination. View: Sufficient Procedure Note Radiology, Radiologist, - 10/12/2024 Interpreted by: Radha Batres Indication [...] 74.6 40% 276.2 24%259.2 51% 56.3 28% 005612% 09/17/2024 34w 2d 87.5 78% 311.8 29%288.9 17% 66.8 43% 932358% 10/05/2024 36w 6d 89.7 49% 326.4 27%304.3 6% 70.2 26% 284738% Impression ========= Patient presents at 37w6d for evaluation of well being in apregnancy with the following complications: multiple sclerosis, history ofLEEP, AMA, FGR by AC diagnosed at 34 weeks. - Normal amniotic fluid volume - BPP 06/17 -Normal doppler indices with an RI at the 62% percentile Reassuring status based on today's assessment. There are no criticalfindings today to indicate delivery. MFM visit prior to US today. Scheduled for delivery locally in one week(10/20). Thank you for allowing us to participate in your patient's care. Attending Attestation: I personally reviewed the image(s)/study and fellow interpretation. Iagree with the findings as stated. Follow-up ======== No further follow up requested. General Evaluation Cardiac activity present. FHR 149 bpm. movements: visualized.Presentation: cephalic Placenta: Placental site: [...] 74.6 40% 276.2 24%259.2 51% 56.3 28% 407485% 09/17/2024 34w 2d 87.5 78% 311.8 29%288.9 17% 66.8 43% 842870% 10/05/2024 36w 6d 89.7 49% 326.4 27%304.3 6% 70.2 26% 788603% Impression ========= Patient presents at 37w6d for evaluation of well being in apregnancy with the following complications: multiple sclerosis, history ofLEEP, AMA, FGR by AC diagnosed at 34 weeks. - Normal amniotic fluid volume - BPP 8/8 -Normal doppler indices with an RI at the 62% percentile Reassuring status based on today's assessment. There are no criticalfindings today to indicate delivery. MFM visit prior to US today. Scheduled for delivery locally in one week(10/20). Thank you for allowing us to participate in your patient's care. Attending Attestation: I personally reviewed the image(s)/study and fellow interpretation. Iagree with the findings as stated. Follow-up ======== No further follow up requested. General Evaluation Cardiac activity present. FHR 149 bpm. movements: visualized.Presentation: cephalic Placenta: Placental site: posterior, No Previa Seen Umbilical cord: Cord vessels: 3 vessel cord Biophysical Profile 2: breathing movements 2: Gross body movements 2: tone 2: Amniotic fluid volume /8 Biophysical profile score Amniotic Fluid Assessment Amount [...] 74.6 40% 276.2 24%259.2 51% 56.3 28% 818586% 09/17/2024 34w 2d 87.5 78% 311.8 29%288.9 17% 66.8 43% 963676% 10/05/2024 36w 6d 89.7 49% 326.4 27%304.3 6% 70.2 26% 775923% Impression ========= Patient presents at 37w6d for evaluation of well being in apregnancy with the following complications: multiple sclerosis, history ofLEEP, AMA, FGR by AC diagnosed at 34 weeks. - Normal amniotic fluid volume - BPP 06/17 -Normal doppler indices with an RI at the 62% percentile Reassuring status based on today's assessment. There are no criticalfindings today to indicate delivery. MFM visit prior to US today. Scheduled for delivery locally in one week(10/20). Thank you for allowing us to participate in your patient's care. Attending Attestation: I personally reviewed the image(s)/study and fellow interpretation. Iagree with the findings as stated. Follow-up ======== No further follow up requested. General Evaluation Cardiac activity present. FHR 149 bpm. movements: visualized.Presentation: cephalic Placenta: Placental site: [...] Method ====== Transabdominal ultrasound examination. View: Sufficient us Clarke Hu DO IMG OB US PROCEDURES Final Resul t documented in this encounter Visit Diagnoses Not on filedocumented in this encounter Care Teams Computer Tech Relationship Specialty [place] [address] [place] [address] PCP - General Pediatrics 10/26/23 documented as of this encounter
--- OUTSIDE RECORDS SUMMARY | 2025-04-11 15:11 | XMS_ITS | Encounter Summary ---
Author Organization [facility] Address [address] [place] [address] Care Team Providers Care Screener Operator Name Role Phone Rashard Lane MD Primary Care Provider [phone] Encounter Details Date Type Department Care Team (Late Contact Info) Description 10/04/2024 Abstract [facility] BCP OB [address] [place] [address] Clarke Hu, DO [address] [place], [place] [address] Social History Tobacco Use Types Packs/Day Years [...] NB OPHT [address] [place] [address] Simón [place], [address] [place] [address] 04/17/2026 1:00 PM EDT Office Visit [facility] BCP OB [address] [facility] [place] [address] Jahaira Byers PA [address] [place] [address] documented as of this encounter Visit Diagnoses Not on filedocumented in this encounter Care Teams Screener Operator Relationship Specialty [place] [address] [place] [address] PCP - General Pediatrics 10/26/23 documented as of this encounter
--- OUTSIDE RECORDS SUMMARY | 2025-04-11 15:11 | XMS_ITS | Encounter Summary ---
Author Organization [facility] Address [address] [place] [address] Care Team Providers Care Life Science Technician Name Role Phone Rashard Lane MD Primary Care Provider [phone] Encounter Details Date Type Department Care Team (Late st Contact Info) Description 09/14/2024 Clinisync Result Encounter [facility] External Department Unsolicited Clarke Hu, DO [address] [place] [address] [place] [address] Social History Tobacco Use Types Packs/Day Years [...] NB OPHT [address] [place] [address] Simón [place], DO [address] [place] [address] 04/17/2026 1:00 PM EDT Office Visit [facility] BCP OB [address] [facility] [place] [address] Jahaira Byers PA [address] [facility] [place] [address] documented as of this encounter Procedures Procedure Name Priority Date/Time Associated Diagnosis Comments US OB FOLLOW UP TRANSABDOMINAL APPROACH 09/14/2024 2:27 PM EST documented in this encounter Results * US OB follow up transabdominal approach (09/14/2024 2:27 PM EST) Anatomical Region Laterality Modality Body Ultrasound 09/14/2024 2:27 PM EST Narrative 09/20/2024 7:52 AM EST Interpreted by: Radha Batres Indication ======== Suspected [...] EFW (oz) 0 oz EFW by: Hadlock (EQW-XD-MS-FL) Extended Bottle Filler 1.6 mm Head / Face / Neck [...] late gestational age Procedure Note Radiology, Radiologist, - 09/20/2024 Interpreted by: Radha Batres Indication ======== Suspected [...] 74.6 40% 276.2 24%259.2 51% 56.3 28% 240358% 09/17/2024 34w 2d 87.5 78% 311.8 29%288.9 17% 66.8 43% 454699% Impression ========= Patient presents for growth assessment due to the following complications:Multiple sclerosis -Appropriate growth and AFV -No malformations were identified on a limited survey -BPP Score is 8/8 Thank you allowing us to participate in the care of your patient Attending Attestation: I personally reviewed the image(s)/study and fellow interpretation. Iagree with the findings as stated. Follow-up ======== 3 week growth assessment General Evaluation Cardiac activity present. FHR 154 bpm. movements: visualized.Presentation: cephalic Placenta: Placental site: posterior Umbilical cord: Cord vessels: 3 vessel cord Amniotic fluid: MVP 4.5 cm. ZEN 15.9 cm. Q1 3.7 cm, Q2 3.9 cm, Q3 3.9 cm,Q4 4.5 cm Biometry Standard BPD 87.5 mm [...] EFW (oz) 0 oz EFW by: Hadlock (ACL-UA-OT-FL) Extended Bottle Filler 1.6 mm Head / Face / Neck [...] view: limited bylate gestational age us Clarke [place] OB US PROCEDURES Final Resul t documented in this encounter Visit Diagnoses Not on filedocumented in this encounter Care Teams Life Science Technician Relationship Specialty [place] [address] [place] [address] PCP - General Pediatrics 10/26/23 documented as of this encounter
--- OUTSIDE RECORDS SUMMARY | 2025-04-11 15:11 | XMS_ITS | Encounter Summary ---
Author Organization [facility] Address [address] [place] [address] Care Team Providers Care Line And Frame Poler Name Role Phone Rashard Lane MD Primary Care Provider [phone] Encounter Details Date Type Department Care Team (Late st Contact Info) Description 09/08/2024 Clinisync Result Encounter [facility] External Department Unsolicited Jahaira Julio PA [address] [place] [address] [place] [address] Social History Tobacco Use Types Packs/Day Years [...] NB OPHT [address] [place] [address] Simón [place], DO [address] [place] [address] 04/17/2026 1:00 PM EDT Office Visit [facility] BCP OB [address] [facility] [place] [address] Jahaira Julio PA [address] [facility] [place] [address] documented as of this encounter Procedures Procedure Name Priority Date/Time Associated Diagnosis Comments US OB CERVICAL LENGTH 09/08/2024 5:19 AM EDT documented in this encounter Results * US OB CERVICAL LENGTH (09/08/2024 5:19 AM EDT) Anatomical Region Laterality Modality Other 09/08/2024 5:19 AM EDT Narrative 09/08/2024 5:22 AM EDT [address] [address] Ultrasound Report Signed Patient: CAROL ANN ROMAN MR#: [id number] : 1985 Acct:[id number] Age/Sex: 39 / F ADM Date: 09/07/24 Loc: [facility] Attending Dr: Jahaira Julio Ordering Physician: Jahaira Julio Date of Service: 09/07/24 Procedure(s): US OB cervical length Accession Number(s): [id number] cc: Jahaira Julio; Physician,Non-Staff M.D. [address] [address] Patient Name: CAROL ANN ROMAN MRN: [id number] date: 1985 Sex: F Assigned Patient Location: [facility] Current Patient Location: Accession/Order Number: [id number] Exam Date: 09/07/2024 14:55 Report Date: 09/08/2024 05:19 At the request of: JAHAIRA JULIO Procedure: US OB cervical length EXAMINATION: US OB cervical length HISTORY: SHORT CERVIX COMPARISON: Ultrasound OB cervical length 08/24/2024 TECHNIQUE: Transabdominal and transvaginal sonographic examination for cervical length. FINDINGS: CERVIX LENGTH: 2.0 cm; closed. POSITION: Cephalic HEART RATE: Not recorded. Age by EDC: 32 weeks 6 days ELLIOTT by EDC: 10/27/2024 US/US OB cervical length IMPRESSION: 1. Closed short cervix, 2.0 cm in length, but stable. Electronically authenticated by: OZ BRITT Date: 09/08/2024 05:19 Dictated By: Oz Britt M.D. Signed By: 09/08/24521 DD/ 8 TD/TT: Radar Engineering Teacher: Procedure Note Radiology, Radiologist, MD - 09/08/2024 [place] [address] Ultrasound Report Signed Patient: CAROL ANN ROMAN R#: [id number] : 1985Acct:[id number] Age/Sex: 39 / FADM Date: 09/07/24 Loc: [facility] Attending Dr: Jahaira Julio Ordering Physician: Jahaira Julio Date of Service: 09/07/24 Procedure(s): US OB cervical length Accession Number(s): [id number] cc: Jahaira Julio; Physician,Non-Staff M.Jong The [place] [address] Patient Name: CAROL ANN ROMAN MRN: [facility]:[id number] date: 1985 Sex: F Assigned Patient Location: [facility] Current Patient Location: Accession/Order Number: [id number] Exam Date: 09/07/2024 14:55 Report Date: 09/08/2024 05:19 At the request of: JAHAIRA JULIO Procedure: US OB cervical length EXAMINATION: US OB cervical length HISTORY: SHORT CERVIX COMPARISON: Ultrasound OB cervical length 08/24/2024 TECHNIQUE: Transabdominal and transvaginal sonographic examination for cervical length. FINDINGS: CERVIX LENGTH: 2.0 cm; closed. POSITION: Cephalic HEART RATE: Not recorded. Age by EDC: 32 weeks 6 days ELLIOTT by EDC: 10/27/2024 US/US OB cervical length IMPRESSION: 1. Closed short cervix, 2.0 cm in length, but stable. Electronically authenticated by: OZ BRITT Date: 09/08/2024 05:19 Dictated By: Oz Britt M.D. Signed By:09/08/24521 DD/ 8 TD/TT: Radar Engineering Teacher: us Jahaira GRIGGS [facility] Final Result documented in this encounter Visit Diagnoses Not on filedocumented in this encounter Care Teams Line And Frame Poler Relationship Specialty [place] [address] [place] [address] PCP - General Pediatrics 10/26/23 documented as of this encounter
--- OUTSIDE RECORDS SUMMARY | 2025-04-11 15:11 | XMS_ITS | Encounter Summary ---
Author Organization [facility] Address [address] [place] [address] Care Team Providers Care Restaurant Area Director Name Role Phone Rashard Lane MD Primary Care Provider [phone] Encounter Details Date Type Department Care Team (Late st Contact Info) Description 06/14/2024 Clinisync Result Encounter [facility] External Department Unsolicited Clarke Hu, DO [address] [place] [address] [place] [address] Social History Tobacco Use Types Packs/Day Years [...] NB OPHT [address] [place] [address] Simón [place], DO [address] [place] [address] 04/17/2026 1:00 PM EDT Office Visit [facility] BCP OB [address] [facility] [place] [address] Jahaira Byers PA [address] [facility] [address] [place], [place] [address] documented as of this encounter Procedures Procedure Name Priority Date/Time Associated Diagnosis Comments US OB TRANSVAGINAL 06/14/2024 3: 07 PM EDT documented in this encounter Results * US OB transvaginal (06/14/2024 3:07 PM EDT) Anatomical Region Laterality Modality Body Ultrasound 06/14/2024 3:07 PM EDT Narrative 06/14/2024 4:24 PM EDT [...] EFW (oz) 14 oz EFW by: Hadlock (BAV-EW-OT-FL) Extended Color Maker 5.9 mm CM 3.2 mm 4% [...] Normal LVOT view: Normal 3-vessel view: Normal 4-xrstnm-byfkpny view: Normal Heart / Thorax Situs: situs [...] EFW (oz) 14 oz EFW by: Hadlock (TGL-TL-RR-FL) Extended Color Maker 5.9 mm CM 3.2 mm 4% [...] Normal LVOT view: Normal 3-vessel view: Normal 5-cdwlje-rkqshce view: Normal Heart / Thorax Situs: situs [...] EFW (oz) 14 oz EFW by: Hadlock (AOQ-DB-OD-FL) Extended Color Maker 5.9 mm CM 3.2 mm 4% [...] Normal LVOT view: Normal 3-vessel view: Normal 4-pqvelz-rygecev view: Normal Heart / Thorax Situs: situs [...] EFW (oz) 14 oz EFW by: Hadlock (PNP-YI-HD-FL) Extended Color Maker 5.9 mm CM 3.2 mm 4% [...] Normal LVOT view: Normal 3-vessel view: Normal 3-urrftf-pzpnzfe view: Normal Heart / Thorax Situs: situs [...] on filedocumented in this encounter Care Teams Restaurant Area Director Relationship Specialty [place] [address] [place] [address] PCP - General Pediatrics 10/26/23 documented as of this encounter
--- OUTSIDE RECORDS SUMMARY | 2025-04-11 15:11 | XMS_ITS | Encounter Summary ---
Author Organization [facility] Address [address] [address] [place] [address] Care Team Providers Care Contact Person Name Role Phone Rashard Lane MD Primary Care Provider [phone] Encounter Details Date Type Department Care Team (Late Contact Info) Description 10/04/2024 Abstract [facility] BCP OB [address] [place] [address] Clarke Hu, DO [address] [place], [place] [address] Social History Tobacco Use Types Packs/Day Years [...] NB OPHT [address] [place] [address] Simón [place], [address] [place] [address] 04/17/2026 1:00 PM EDT Office Visit [facility] BCP OB [address] [facility] [place] [address] Jahaira Byers PA [address] [facility] [place] [address] documented as of this encounter Visit Diagnoses Not on filedocumented in this encounter Care Teams Contact Person Relationship Specialty [place] [address] [place] [address] PCP - General Pediatrics 10/26/23 documented as of this encounter
--- OUTSIDE RECORDS SUMMARY | 2025-04-11 15:11 | XMS_ITS ---
Author Organization [facility] Address [address] [place] [address] Care Team Providers Care Kiln Puller Name Role Phone Rashard Lane MD Primary Care Provider Juan Miguel Caballero [facility] Unavailable Unavailable Olimpia Turpin APRN.CHEESE PROCESSOR Unavailable Multiple Sclerosis Status:Enrolled (Active) Start date:05/30/2024 Enrollment date:05/30/2024 Linked medications:glatiramer acetate (Active) Linked problems:Multiple sclerosis (HCC) (Active) Case Team Name Relationship Phone Juan Miguel Caballero [facility] (Responsible Staff) Continued Care and Services Coordination
--- OUTSIDE RECORDS SUMMARY | 2025-04-11 15:11 | XMS_ITS | Encounter Summary ---
Author Organization [facility] Address [address] [place] [address] Care Team Providers Care Kiln Labourer Name Role Phone Janice Lane MD Primary Care Provider [phone] Encounter Details Date Type Department Care Team (Late st Contact Info) Description 09/29/2024 Clinisync Result Encounter [facility]S External Department Unsolicited John Hu, DO [address] [place] [address] [place] [address] Social History Tobacco Use Types Packs/Day Years [...] NB OPHT [address] [place] [phone] Simón Powell, DO [address] [place] [address] 04/17/2026 1:00 PM EDT Office Visit [facility] BCP OB [address] [place] [address] Jahaira Byers PA [address] [place], [place] [address] documented as of this encounter Procedures Procedure Name Priority Date/Time Associated Diagnosis Comments US OB BPP W NON-STRESS 09/29/2024 7:20 AM EST documented in this encounter Results * US OB BPP W NON-STRESS (09/29/2024 7:20 AM EST) Anatomical Region Laterality Modality Other 09/29/2024 7:20 AM EST Narrative 09/29/2024 7:23 AM EST The [address] [address] Ultrasound Report Signed Patient: CAROL ANN ROMAN MR#: [id number] : 1985 Acct:[id number] Age/Sex: 39 / F ADM Date: 09/28/24 Loc: US Attending Dr: John Hu D.O. Ordering Physician: John Hu D.O. Date of Service: 09/28/24 Procedure(s): US OB BPP w non-stress Accession Number(s): [id number] cc: John Hu D.O.; Physician,Non-Staff M.Jong The [address] [address] Patient Name: CAROL ANN ROMAN MRN: [id number] date: 1985 Sex: F Assigned Patient Location: [facility] Current Patient Location: Accession/Order Number: [id number] Exam Date: 09/28/2024 17:25 Report Date: 09/29/2024 07:20 At the request of: JOHN HU Procedure: US OB BPP w non-stress EXAMINATION: US OB BPP w non-stress HISTORY: MULTIPLE SCLEROSIS G35 COMPARISON: No relevant comparison available. TECHNIQUE: Ultrasound biophysical profile was performed in the radiology department. non-reactive stress testing was performed by nursing staff in the birthing center. FINDINGS: BREATHING MOVEMENTS: 2 GROSS BODY MOVEMENTS: 2 TONE: 2 QUALITATIVE AMNIOTIC FLUID VOLUME: 2 PRESENTATION: CEPHALIC HEART RATE: 145.16 bpm AMNIOTIC FLUID VOLUME: 12.9 cm GESTATIONAL AGE: 35 weeks 6 days US/US OB BPP w non-stress IMPRESSION: Total biophysical profile score: 8 Electronically authenticated by: JANICE ERWIN Date: 09/29/2024 07:20 Dictated By: Janice Erwin M.D. Signed By: 09/29/24722 DD/ 9 TD/TT: Shook Splicer: Procedure Note Radiology, Radiologist, MD - 09/29/2024 [place] [address] Ultrasound Report Signed Patient: CAROL ANN ROMAN FMR#: [id number] : 1985Acct:[id number] Age/Sex: 39 / FADM Date: 09/28/24 Loc: US Attending Dr: John Hu D.O. Ordering Physician: John Hu D.O. Date of Service: 09/28/24 Procedure(s): US OB BPP w non-stress Accession Number(s): [id number] cc: John Hu D.O.; Physician,Non-Staff [place] The [place] [id number] Patient Name: CAROL ANN ROMAN MRN: [id number] date: 1985 Sex: F Assigned Patient Location: [facility] Current Patient Location: Accession/Order Number: [id number] Exam Date: 09/28/2024 17:25 Report Date: 09/29/2024 07:20 At the request of: JOHN HU Procedure: US OB BPP w non-stress EXAMINATION: US OB BPP w non-stress HISTORY: MULTIPLE SCLEROSIS G35 COMPARISON: No relevant comparison available. TECHNIQUE: Ultrasound biophysical profile was performed in the radiology department. non-reactive stress testing was performed by nursingstaff in the birthing center. FINDINGS: BREATHING MOVEMENTS: 2 GROSS BODY MOVEMENTS: 2 TONE: 2 QUALITATIVE AMNIOTIC FLUID VOLUME: 2 PRESENTATION: CEPHALIC HEART RATE: 145.16 bpm AMNIOTIC FLUID VOLUME: 12.9 cm GESTATIONAL AGE: 35 weeks 6 days US/US OB BPP w non-stress IMPRESSION: Total biophysical profile score: 8 Electronically authenticated by: JANICE ERWIN Date: 09/29/2024 07:20 Dictated By: Janice Erwin M.D. Signed By:09/29/24722 DD/ 9 TD/TT: Shook Splicer: us John Hu DO [facility] Final Result documented in this encounter Visit Diagnoses Not on filedocumented in this encounter Care Teams Kiln Labourer Relationship Specialty [place] [address] [place] [address] PCP - General Pediatrics 10/26/23 documented as of this encounter
--- OUTSIDE RECORDS SUMMARY | 2025-04-11 15:11 | XMS_ITS | Encounter Summary ---
Author Organization [facility] Address [address] [place] [address] Care Team Providers Care Firer Portable Boiler Name Role Phone Rashard Lane MD Primary Care Provider [phone] Encounter Details Date Type Department Care Team (Late st Contact Info) Description 10/05/2024 Clinisync Result Encounter [facility] External Department Unsolicited John Hu, DO [address] [place] [address] [place] [address] Social History Tobacco Use Types Packs/Day Years [...] NB OPHT [address] [place] [phone] Simón Powell, DO [address] [place] [address] 04/17/2026 1:00 PM EDT Office Visit [facility] BCP OB [address] [place] [address] Jahaira Byers PA [address] [place], [place] [address] documented as of this encounter Procedures Procedure Name Priority Date/Time Associated Diagnosis Comments US OB CERVICAL LENGTH 10/05/2024 6:36 AM EST documented in this encounter Results * US OB CERVICAL LENGTH (10/05/2024 6:36 AM EST) Anatomical Region Laterality Modality Other 10/05/2024 6:36 AM EST Narrative 10/05/2024 6:38 [place] [address] Ultrasound Report Signed Patient: CAROL ANN ROMAN MR#: [id number] : 1985 Acct:[id number] Age/Sex: 39 / F ADM Date: 10/04/24 Loc: NOMS Attending Dr: John Hu D.O. Ordering Physician: John Hu D.O. Date of Service: 10/04/24 Procedure(s): US OB cervical length Accession Number(s): [id number] cc: John Hu D.O.; Physician,Non-Staff MJoana The [address] [address] Patient Name: CAROL ANN ROMAN MRN: [id number] date: 1985 Sex: F Assigned Patient Location: [facility] Current Patient Location: US Accession/Order Number: [id number] Exam Date: 10/04/2024 13:21 Report Date: 10/05/2024 06:36 At the request of: JOHN HU Procedure: US OB cervical length EXAMINATION: US OB cervical length HISTORY: SHORT CERVIX COMPARISON: Ultrasound OB cervical length 09/21/2024 TECHNIQUE: Transabdominal and transvaginal sonographic examination for cervical length. FINDINGS: CERVIX LENGTH: 2.0 cm; closed. POSITION: Cephalic HEART RATE: Not evaluated Age by EDC: 36 weeks 5 days [place] by EDC: 10/27/2024 US/US OB cervical length IMPRESSION: 1.], Short cervix 2.0 cm in length. Stable compared to prior study. Electronically authenticated by: OZ BRITT Date: 10/05/2024 06:36 Dictated By: Oz Britt M.D. Signed By: 10/05/24637 DD/ 5 TD/TT: Produce Runner: Procedure Note Radiology, Radiologist, MD - 10/05/2024 [place] [address] Ultrasound Report Signed Patient: CAROL ANN ROMAN FMR#: [id number] : 1985Acct:[id number] Age/Sex: 39 / FADM Date: 10/04/24 Loc: NOMS Attending Dr: John Hu D.O. Ordering Physician: John Hu D.O. Date of Service: 10/04/24 Procedure(s): US OB cervical length Accession Number(s): [id number] cc: John Hu D.O.; Physician,Non-Staff [place] The [place] [address] Patient Name: CAROL ANN ROMAN MRN: [id number] date: 1985 Sex: F Assigned Patient Location: [facility] Current Patient Location: US Accession/Order Number: [id number] Exam Date: 10/04/2024 13:21 Report Date: 10/05/2024 06:36 At the request of: JOHN HU Procedure: US OB cervical length EXAMINATION: US OB cervical length HISTORY: SHORT CERVIX COMPARISON: Ultrasound OB cervical length 09/21/2024 TECHNIQUE: Transabdominal and transvaginal sonographic examination for cervical length. FINDINGS: CERVIX LENGTH: 2.0 cm; closed. POSITION: Cephalic HEART RATE: Not evaluated Age by EDC: 36 weeks 5 days [place] by EDC: 10/27/2024 US/US OB cervical length IMPRESSION: 1.], Short cervix 2.0 cm in length. Stable compared to prior study. Electronically authenticated by: OZ BRITT Date: 10/05/2024 06:36 Dictated By: Oz Britt M.D. Signed By:10/05/24637 DD/ 5 TD/TT: Produce Runner: us John Mayte DO [facility] Final Result documented in this encounter Visit Diagnoses Not on filedocumented in this encounter Care Teams Firer Portable Boiler Relationship Specialty [place] [address] [place] [address] PCP - General Pediatrics 10/26/23 documented as of this encounter
--- OUTSIDE RECORDS SUMMARY | 2025-04-11 15:11 | XMS_ITS | Encounter Summary ---
Author Organization [facility] Address [address] [place] [address] Care Team Providers Care Excelsior Machine Operator Name Role Phone Rashard Lane MD Primary Care Provider [phone] Encounter Details Date Type Department Care Team (Late st Contact Info) Description 10/05/2024 Clinisync Result Encounter [facility] External Department Unsolicited Clarke Hu, DO [address] [place] [address] [place] [address] Social History Tobacco Use Types Packs/Day Years [...] NB OPHT [address] [place] [phone] Simón Powell, DO [address] [place] [address] 04/17/2026 1:00 PM EDT Office Visit [facility] BCP OB [address] [address] [facility] [place] [address] Jahaira Byers PA [address] [place] [address] documented as of this encounter Procedures Procedure Name Priority Date/Time Associated Diagnosis Comments US OB FOLLOW UP TRANSABDOMINAL APPROACH 10/05/2024 1:19 PM EST documented in this encounter Results * US OB follow up transabdominal approach (10/05/2024 1:19 PM EST) Anatomical Region Laterality Modality Body Ultrasound 10/05/2024 1:19 PM EST Narrative 10/05/2024 3:44 PM EST [...] BPP and Dopplers. Delivery is recommended at 12y8x-05d2u. Please see note from today for details [...] EFW (oz) 13 oz EFW by: Hadlock ([id number]-[id number]-FL) Extended Steam Fitter Helper 5.8 mm Head / Face / Neck [...] BPP and Dopplers. Delivery is recommended at 82q1m-30l6h. Please see note from today for details [...] EFW (oz) 13 oz EFW by: Hadlock (CHO-GU-MW-FL) Extended Steam Fitter Helper 5.8 mm Head / Face / Neck [...] BPP and Dopplers. Delivery is recommended at 78l3a-71z9e. Please see note from today for details [...] EFW (oz) 13 oz EFW by: Hadlock (UBB-EB-HI-FL) Extended Steam Fitter Helper 5.8 mm Head / Face / Neck [...] 74.6 40% 276.2 24%259.2 51% 56.3 28% 447540% 09/17/2024 34w 2d 87.5 78% 311.8 29%288.9 17% 66.8 43% 229990% 10/05/2024 36w 6d 89.7 49% 326.4 27%304.3 6% 70.2 26% 283438% Impression ========= Patient here for growth ultrasound [...] weekly BPPand Dopplers. Delivery is recommended at 59r6f-29j1d. Please see note from today fordetails General [...] EFW (oz) 13 oz EFW by: Hadlock (XSI-BB-OI-FL) Extended Steam Fitter Helper 5.8 mm Head / Face / Neck [...] 74.6 40% 276.2 24%259.2 51% 56.3 28% 863667% 09/17/2024 34w 2d 87.5 78% 311.8 29%288.9 17% 66.8 43% 614756% 10/05/2024 36w 6d 89.7 49% 326.4 27%304.3 6% 70.2 26% 274709% Impression ========= Patient here for growth ultrasound [...] weekly BPPand Dopplers. Delivery is recommended at 12q7e-88j1i. Please see note from today fordetails General [...] EFW (oz) 13 oz EFW by: Hadlock (SPT-EL-SR-FL) Extended Steam Fitter Helper 5.8 mm Head / Face / Neck [...] 74.6 40% 276.2 24%259.2 51% 56.3 28% 557107% 09/17/2024 34w 2d 87.5 78% 311.8 29%288.9 17% 66.8 43% 179804% 10/05/2024 36w 6d 89.7 49% 326.4 27%304.3 6% 70.2 26% 251363% Impression ========= Patient here for growth ultrasound [...] weekly BPPand Dopplers. Delivery is recommended at 26i9d-12b8y. Please see note from today fordetails General [...] EFW (oz) 13 oz EFW by: Hadlock (LXN-FJ-OE-FL) Extended Steam Fitter Helper 5.8 mm Head / Face / Neck [...] on filedocumented in this encounter Care Teams Excelsior Machine Operator Relationship Specialty [place] [address] [place] [address] PCP - General Pediatrics 10/26/23 documented as of this encounter
--- OUTSIDE RECORDS SUMMARY | 2025-04-11 15:11 | XMS_ITS | Encounter Summary ---
Author Organization [facility] Address [address] [place] [address] Care Team Providers Care Digital Marketing Intern Name Role Phone Janice Lane MD Primary Care Provider [phone] Encounter Details Date Type Department Care Team (Late st Contact Info) Description 09/21/2024 Clinisync Result Encounter [facility] External Department Unsolicited John Hu, DO [address] [place] [address] [place] [address] Social History Tobacco Use Types Packs/Day Years [...] NB OPHT [address] [place] [address] Simón Powell, DO [address] [place] [address] 04/17/2026 1:00 PM EDT Office Visit [facility] BCP OB [address] [place] [address] Jahaira Byers PA [address] [facility] [address] [place], [place] [address] documented as of this encounter Procedures Procedure Name Priority Date/Time Associated Diagnosis Comments US OB CERVICAL LENGTH 09/21/2024 2:35 PM EST documented in this encounter Results * US OB CERVICAL LENGTH (09/21/2024 2:35 PM EST) Anatomical Region Laterality Modality Other 09/21/2024 2:35 PM EST Narrative 09/21/2024 2:38 PM EST [address] [address] Ultrasound Report Signed Patient: CAROL ANN ROMAN MR#: [id number] : 1985 Acct:[id number] Age/Sex: 39 / F ADM Date: 09/21/24 Loc: NOMS Attending Dr: John Hu D.O. Ordering Physician: John Hu D.O. Date of Service: 09/21/24 Procedure(s): US OB cervical length Accession Number(s): [id number] cc: John Hu D.O.; Physician,Non-Staff MJoana The [address] [address] Patient Name: CAROL ANN ROMAN MRN: [id number] date: 1985 Sex: F Assigned Patient Location: [facility] Current Patient Location: [facility] Accession/Order Number: [id number] Exam Date: 09/21/2024 14:01 Report Date: 09/21/2024 14:35 At the request of: JOHN HU Procedure: US OB cervical length EXAMINATION: US OB cervical length HISTORY: SHORT CERVIX COMPARISON: 09/07/2024 FINDINGS: The cervix is 2 cm in length, closed. Cephalic presentation Clinical age: 34 weeks 6 days US/US OB cervical length IMPRESSION: Closed cervix measuring 2 cm Electronically authenticated by: JANICE ERWIN Date: 09/21/2024 14:35 Dictated By: Janice Erwin M.D. Signed By: 09/21/241437 DD/ 34 TD/TT: Production Operations Manager: Procedure Note Radiology, Radiologist, MD - 09/21/2024 [place] [address] Ultrasound Report Signed Patient: CAROL ANN ROMAN FMR#: [id number] : 1985Acct:[id number] Age/Sex: 39 / FADM Date: 09/21/24 Loc: [facility]OMS Attending Dr: John Hu D.O. Ordering Physician: John Hu D.O. Date of Service: 09/21/24 Procedure(s): US OB cervical length Accession Number(s): [id number] cc: John Hu D.O.; Physician,Non-Staff [place] The [place] [address] Patient Name: CAROL ANN ROMAN MRN: [facility]:[id number] date: 1985 Sex: F Assigned Patient Location: [facility] Current Patient Location: [facility] Accession/Order Number: [id number] Exam Date: 09/21/2024 14:01 Report Date: 09/21/2024 14:35 At the request of: JOHN HU Procedure: US OB cervical length EXAMINATION: US OB cervical length HISTORY: SHORT CERVIX COMPARISON: 09/07/2024 FINDINGS: The cervix is 2 cm in length, closed. Cephalic presentation Clinical age: 34 weeks 6 days US/US OB cervical length IMPRESSION: Closed cervix measuring 2 cm Electronically authenticated by: JANICE ERWIN Date: 09/21/2024 14:35 Dictated By: Janice Erwin M.D. Signed By:09/21/24 1438 DD/ 1435 TD/TT: Production Operations Manager: us John Naiko DO [facility] Final Result documented in this encounter Visit Diagnoses Not on filedocumented in this encounter Care Teams Digital Marketing Intern Relationship Specialty [place] [address] [place] [address] PCP - General Pediatrics 10/26/23 documented as of this encounter
--- OUTSIDE RECORDS SUMMARY | 2025-04-11 15:11 | XMS_ITS | Encounter Summary ---
Author Organization [facility] Address [address] [place] [address] Care Team Providers Care Maintenance Analyst Name Role Phone Rashard Lane MD Primary Care Provider [phone] Juan Miguel Caballero [facility] Unavailable Unavailable Olimpia Turpin MARKETING PROFESSOR.USER ACCEPTANCE TESTER Unavailable Maricruz Valdovinos PA-C Unavailable [phone] Source Comments In the event this information is protected by the Federal Confidentiality of Alcohol and Drug AbusePatient Records regulations: The Federal rules restrict any use of the information to criminally investigate or prosecute any alcohol or drug abuse patient.[facility] Encounter Details Date Type Department Care Team (Late st Contact Info) Description 01/17/2023 Patient Msg Chris Betancourt [address] [address] Mirna iWlson LISW [address] [place] [address] Social Work- Childcare Social History Tobacco Use Types Packs/Day Years [...] often do you attend chur ch or adventist services? Never 12/16/2022 Do you belong to any clubs o r organizations such as jehovah's witness groups, unions, fraternal or athletic groups, or [...] Answer Date Recorded PHQ-2 score 0 01/13/2023 [facility] - Occupational Stress [...] in a penitentiary (including now)? No 12/16/2022 [place] Depression Scale Answer Date Recorded [place] Depression Scale Total 1 10/30/2020 The thought of harming myself has occurred to me . Never 10/30/2020 Area Deprivation Index Answer Date Ger rded National Score (1-100), lower number is lower ri sk 89 11/27/2022 State Score (1-10), lower number is lower risk N ot on file 11/27/2022 Data from: https://www.neighborhoodatlas.medicine.[facility].edu/. Last address used for calculation [address] 11/27/2022 Education Answer Date Recorded What [...] AM EDT Specialty Pharmacy [facility] [address] [place], [place] [phone] [place] [address] Pharmacist, Specialty[facility] [address] [place] [address] refill - glatiramer MWF--lvm 03/29,04/08(wa) 05/23/2025 1:30 PM EDT Office Visit OPHT Ophthalmology [address] [address] Maulik Toney DO [address] [place], [place] [id number] optic neuritis and MS 07/20/2025 12:00 PM EDT Office Visit Family Medicine [facility] [address] [place] [address] [place] [address] [place] [address] physical 09/30/2025 9:00 AM [facility] Hematology/Oncology [address] [place] [address] [place] [address] [place] documented as of this encounter Visit Diagnoses Not on filedocumented in this encounter Additional Health Concerns Infection Onset Date Last Indicated Resolved Time COVID-19 Rule-Out 02/12/2023 02/12/2023 02/13/2023 1:49 AM EDT COVID-19 Confirmed 02/12/2023 02/12/2023 8:51 PM EDT documented as of this encounter Care Teams Maintenance Analyst Relationship Specialty Start Date End Date Rashard [address] MD [address] [place] [address] PCP - General Family Medicine 12/09/19 Juan Miguel Caballero, [facility] 05/30/24 Olimpia Turpin, MARKETING PROFESSOR.USER ACCEPTANCE TESTER [address] [place] [address] Grout Worker Family Medicine 10/18/24 Maricruz Valdovinos PA-C [address] [place] [address] Grout Worker Internal Medicine 10/18/24 11/11/24 documented as of this encounter
--- OUTSIDE RECORDS SUMMARY | 2025-04-11 15:11 | XMS_ITS | Encounter Summary ---
Author Organization [facility] Address [address] [place] [address] Care Team Providers Care Intermediate Project Manager Name Role Phone Rashard Lane MD Primary Care Provider [phone] Encounter Details Date Type Department Care Team (Late st Contact Info) Description 10/05/2024 Clinisync Result Encounter [facility] External Department Unsolicited Clarke Hu, DO [address] [place] [address] [place] [address] Social History Tobacco Use Types Packs/Day Years [...] NB OPHT [address] [place] [address] Simón Powell, DO [address] [place] [address] 04/17/2026 1:00 PM EDT Office Visit [facility] BCP OB [address] [place] [address] Jahaira Byers PA [address] [facility] [place] [address] documented as of this encounter Procedures Procedure Name Priority Date/Time Associated Diagnosis Comments US UMBILICAL ARTERY DOPPLER 10/05/2024 3:40 PM EST documented in this encounter Results * US umbilical artery doppler (10/05/2024 3:40 PM EST) Anatomical Region Laterality Modality Ultrasound 10/05/2024 3:40 PM EST Narrative 10/05/2024 [...] BPP and Dopplers. Delivery is recommended at 99s6w-31o2d. Please see note from today for details [...] EFW (oz) 13 oz EFW by: Hadlock (BLS-LS-SY-FL) Extended Post Commander 5.8 mm Head / Face / Neck [...] BPP and Dopplers. Delivery is recommended at 26d3j-49g8t. Please see note from today for details [...] EFW (oz) 13 oz EFW by: Hadlock (NPB-BX-EF-FL) Extended Post Commander 5.8 mm Head / Face / Neck [...] BPP and Dopplers. Delivery is recommended at 54w3z-29n0n. Please see note from today for details [...] EFW (oz) 13 oz EFW by: Hadlock ([id number]-RK-MJ-FL) Extended Post Commander 5.8 mm Head / Face / Neck [...] 74.6 40% 276.2 24%259.2 51% 56.3 28% 543592% 09/17/2024 34w 2d 87.5 78% 311.8 29%288.9 17% 66.8 43% 453487% 10/05/2024 36w 6d 89.7 49% 326.4 27%304.3 6% 70.2 26% 256094% Impression ========= Patient here for growth ultrasound [...] weekly BPPand Dopplers. Delivery is recommended at 66s0p-96y0c. Please see note from today fordetails General [...] EFW (oz) 13 oz EFW by: Hadlock (VII-VB-WK-FL) Extended Post Commander 5.8 mm Head / Face / Neck [...] 74.6 40% 276.2 24%259.2 51% 56.3 28% 296999% 09/17/2024 34w 2d 87.5 78% 311.8 29%288.9 17% 66.8 43% 421508% 10/05/2024 36w 6d 89.7 49% 326.4 27%304.3 6% 70.2 26% 265384% Impression ========= Patient here for growth ultrasound [...] weekly BPPand Dopplers. Delivery is recommended at 89y1w-01o8b. Please see note from today fordetails General [...] EFW (oz) 13 oz EFW by: Hadlock (YWN-GS-AH-FL) Extended Post Commander 5.8 mm Head / Face / Neck [...] Amniotic fluid volume 8 Biophysical profile score Method ====== Transabdominal ultrasound [...] 74.6 40% 276.2 24%259.2 51% 56.3 28% 218720% 09/17/2024 34w 2d 87.5 78% 311.8 29%288.9 17% 66.8 43% 736990% 10/05/2024 36w 6d 89.7 49% 326.4 27%304.3 6% 70.2 26% 730657% Impression ========= Patient here for growth ultrasound [...] weekly BPPand Dopplers. Delivery is recommended at 38n2k-49a7s. Please see note from today fordetails General [...] EFW (oz) 13 oz EFW by: Hadlock (FUU-KH-MZ-FL) Extended Post Commander 5.8 mm Head / Face / Neck [...] gestational age us Clarke Hu DO IMG US PROCEDURES Final Result documented in this encounter Visit Diagnoses Not on filedocumented in this encounter Care Teams Intermediate Project Manager Relationship Specialty [place] [address] [place] [address] PCP - General Pediatrics 10/26/23 documented as of this encounter
--- OUTSIDE RECORDS SUMMARY | 2025-04-11 15:12 | XMS_ITS | Encounter Summary ---
Author Organization [facility] Address [facility] [place] [address] Care Team Providers Care Broom Handle Dipper Name Role Phone Rashard Lane MD Primary Care Provider [phone] Juan Miguel Caballero [facility] Unavailable Unavailable Olimpia Turpin APPLICATION SUPPORT CONSULTANT.OFFICE ASSISTANCE Unavailable Maricruz Valdovinos PA-C Unavailable [phone] Source Comments In the event this information is protected by the Federal Confidentiality of Alcohol and Drug AbusePatient Records regulations: The Federal rules restrict any use of the information to criminally investigate or prosecute any alcohol or drug abuse patient.[facility] Reason for Visit * Reason Comments Patient Update CMN- Nutrition Encounter Details Date Type Department Care Team (Late st Contact Info) Description 10/12/2024 [facility] [address] [address] Anya Cast APRN.OFFICE ASSISTANCE [address] [place] [address] Patient Update (CMN- Nutrition) Social History Tobacco Use Types Packs/Day Years [...] often do you attend chur ch or cheondoism services? Never 12/16/2022 Do you belong to any clubs o r organizations such as faith groups, unions, fraternal or athletic groups, or [...] PHQ-2 Answer Date Recorded PHQ-2 score 0 07/19/2024 [facility] - [...] place to sleep or slept in a care home (including now)? No 12/16/2022 [place] Depression Scale Answer Date Recorded [place] Depression Scale Total 1 10/30/2020 The thought of harming myself has occurred to me . Never 10/30/2020 Area Deprivation Index Answer Date Ger rded National Score (1-100), lower number is lower ri sk 93 07/17/2023 State Score (1-10), lower number is lower risk 9 07/17/2023 Data from: https://www.neighborhoodatlas.medicine.[facility].edu/. Last address used for calculation [...] EDT Specialty Pharmacy [facility] [address] [place] [address] AC4[address] [place] [address] Pharmacist, [facility] [address] [place] [address] [place] [address] refill - glatiramer MWF--lvm 03/29,04/08(wamb) 05/23/2025 1:30 PM EDT Office Visit [facility] Ophthalmology [address] [id number] Maulik Toney DO [address] [place] [address] optic neuritis and MS 07/20/2025 12:00 PM EDT Office Visit Family Medicine [place] [address] [place] [address] MD [address] [place] [address] physical 09/30/2025 9:00 AM [facility] Hematology/Oncology [address] [place] [address] [place] [address] OCREVUS documented as of this encounter Goals Goal Patient Goal Type Associated Problems Recent Progress Patient-Stated? Author Sleep Efficiency Care Plan Sleep Efficiency No Lashawn Lazo, PhD documented as of this encounter Visit Diagnoses Not on filedocumented in this encounter Additional Health Concerns Active Problems Noted Date Diagnosed Date Sleep Efficiency 07/08/2024 documented as of this encounter Care Teams Broom Handle Dipper Relationship Specialty Start Date End Date Rashard Lane MD [address] [place] [address] PCP - General Family Medicine 12/09/19 Juan Miguel Caballero, [facility] 05/30/24 Olimpia Turpin, APPLICATION SUPPORT CONSULTANT.OFFICE ASSISTANCE [address] [place] [address] Roto Rooter Operator Family Medicine 10/18/24 Maricruz Valdovinos PA-C [address] [place] [address] Roto Rooter Operator Internal Medicine 10/18/24 11/11/24 documented as of this encounter
--- OUTSIDE RECORDS SUMMARY | 2025-04-11 15:12 | XMS_ITS | Encounter Summary ---
Author Organization [facility] Address [address] [place] [address] Care Team Providers Care Film Examiner Name Role Phone Rashard Lane MD Primary Care Provider [phone] Juan Miguel Caballero [facility] Unavailable Unavailable Olimpia Turpin SHALE PROCESSING TECHNICIAN.[facility] Unavailable Source Comments In the event this information is protected by the Federal Confidentiality of Alcohol and Drug AbusePatient Records regulations: The Federal rules restrict any use of the information to criminally investigate or prosecute any alcohol or drug abuse patient.[facility] Encounter Details Date Type Department Care Team (Late st Contact Info) Description 03/28/2025 Get Medical Advice Nutrition Therapy [address] [place] [address] Provider, [facility] Like sample Social History Tobacco Use Types Packs/Day Years [...] 02/24/2025 How often do you attend chur or mosque services? More than 4 times per year 02/24/2025 Do you belong to any clubs o r organizations such as quaker groups, unions, fraternal or athletic groups, or [...] Answer Date Recorded PHQ-2 score 2 03/10/2025 [facility] - Occupational Stress Questionnaire Answer Date Recorded [...] in a prison (including now)? No 12/16/2022 [place] Depression Scale Answer Date Recorded [place] Depression Scale Total 1 10/30/2020 The thought [...] lower risk 9 07/17/2023 Data from: https://www.neighborhoodatlas.medicine.[facility].edu/. Last address used for calculation [...] AM EDT Specialty Pharmacy [facility] [address] [place], [place] 145434-[address] [place] [address] Pharmacist, [facility] [address] [place] [address] refill - glatiramer MWF--lvm 03/29,04/08(wa) 05/23/2025 1:30 PM EDT Office Visit [facility] Ophthalmology [address] [address] Maulik Toney DO [address] [place] [address] optic neuritis and MS 07/20/2025 12:00 PM EDT Office Visit Family Medicine [facility] [address] [place] [address] MD [address] [place] [address] physical 09/30/2025 9:00 AM [facility] Hematology/Oncology [address] [place] [address] [place] [address] OCREVUS documented as of this encounter Goals Goal Patient Goal Type Associated Problems Recent Progress Patient-Stated? Author Sleep Efficiency Care Plan Sleep Efficiency Lashawn Ny, PhD documented as of this encounter Visit Diagnoses Not on filedocumented in this encounter Additional Health Concerns Active Problems Noted Date Diagnosed Date Sleep Efficiency 07/08/2024 documented as of this encounter Care Teams Film Examiner Relationship Specialty Start Date End Date Rashard Lane MD [address] [place] [address] PCP - General Family Medicine 12/09/19 Juan Miguel Caballero [facility] 05/30/24 Olimpia Turpin, CYNTHIA.FOREST ECOLOGY PROFESSOR [address] [place] [address] Child Care Worker Family Medicine 10/18/24 documented as of this encounter
--- OUTSIDE RECORDS SUMMARY | 2025-04-11 15:12 | XMS_ITS | Encounter Summary ---
Author Organization [facility] tem Address [id number] [address] [place] [address] Care Team Providers Care High Reach Operator Name Role Phone Rashard Lane Primary Care Provider [phone] Encounter Details Date Type Department Care Team (Late st Contact Info) Description 07/19/2020 Telephone [facility] - Radiation Oncology [address] [facility] [place] [phone] [address] [place] [address] Social History Tobacco Use Types Packs/Day Years [...] Employment Answer Date Recorded Employment Unknown 10/01/2019 Comments No Sex and Gender Information Value Date Recorded Sex Assigned at Not on file Legal Sex Female 9:08 PM EST Gender Identity Not on file Sexual Orientation Not on file COVID-19 Exposure Response Date Recorded In the last month, have you been in contact with someone who was confirmed or suspected to have Coronavirus / COVID-19? No / Unsure 07/19/2020 8:31 AM EDT documented as of this encounter Miscellaneous Notes * Telephone Encounter - Yoan M Oneyda - 07/19/2020 9:48 AM EDT S:Pt called to see if she can move her appt on 07/24 to 2 or 2:30. R: Please call her back at [phone]. documented in this encounter Plan of Treatment Not on file documented as of this encounter Goals Goal Patient Goal Type Associated Problems Recent Progress Patient-Stated? 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 documented as of this encounter Visit Diagnoses Not on filedocumented in this encounter Care Teams High Reach Operator Relationship Specialty Start Date End Date [address] [address] [place] [address] PCP - General Family Medicine 12/22/19 documented as of this encounter
--- OUTSIDE RECORDS SUMMARY | 2025-04-11 15:12 | XMS_ITS | Encounter Summary ---
Author Organization [facility] Address [id number] [address] [place] [address] Care Team Providers Care Nail Galvanizer Name Role Phone DomingoRashard parks Sneha Primary Care Provider [phone] Encounter Details Date Type Department Care Team (Late st Contact Info) Description 09/06/2020 Telephone [facility] Neurology [address] [place] [phone] Margarita Gunter Social History Tobacco Use Types Packs/Day Years [...] Answer Date Recorded Employment Unknown 10/01/2019 Comments Yes Sex and Gender Information Value Date Recorded Sex Assigned at Not on file Legal Sex Female 9:08 PM EST Gender Identity Not on file Sexual Orientation Not on file COVID-19 Exposure Response Date Recorded In the last month, have you been in contact with someone who was confirmed or suspected to have Coronavirus / COVID-19? Unable to assess 08/10/2020 6:41 AM EDT documented as of this encounter Plan of Treatment Not on file documented as of this encounter Goals Goal Patient Goal Type Associated Problems Recent Progress Patient-Stated? 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 documented as of this encounter Visit Diagnoses Not on filedocumented in this encounter Care Teams Nail Galvanizer Relationship Specialty Start Date End Date [address] [address] [place] [address] PCP - General Family Medicine 12/22/19 documented as of this encounter
--- OUTSIDE RECORDS SUMMARY | 2025-04-11 15:12 | XMS_ITS | Encounter Summary ---
Author Organization [facility] Address [address] [place] [address] Care Team Providers Care Local Flatbed Driver Name Role Phone Rashard Lane MD Primary Care Provider [phone] Juan Miguel Caballero [facility] Unavailable Unavailable Olimpia Turpin NEWSPAPER WRITER.MISSION SUPPORT SPECIALIST Unavailable [phone] Maricruz Valdovinos PA-C Unavailable [phone] Source Comments In the event this information is protected by the Federal Confidentiality of Alcohol and Drug AbusePatient Records regulations: The Federal rules restrict any use of the information to criminally investigate or prosecute any alcohol or drug abuse patient.[facility] Encounter Details Date Type Department Care Team (Late st Contact Info) Description 11/08/2024 Patient [facility] [address] [place] [address] Anya Cast APRN.MISSION SUPPORT SPECIALIST [address] [place] [address] Appointment Cancellation Request Social History Tobacco Use Types Packs/Day Years [...] any clubs o r organizations such as muslim groups, unions, fraternal or athletic groups, or [...] PHQ-2 Answer Date Recorded PHQ-2 score 0 11/08/2024 [facility] Occupat ional [facility] - [...] place to sleep or slept in a custodial (including now)? No 12/16/2022 [place] Depression Scale Answer Date Recorded [place] Depression Scale Total 1 10/30/2020 The thought of harming myself has occurred to me . Never 10/30/2020 Area Deprivation Index Answer Date Ger rded National Score (1-100), lower number is lower ri sk 93 07/17/2023 State Score (1-10), lower number is lower risk 9 07/17/2023 Data from: https://www.neighborhoodatlas.medicine.[facility].edu/. Last address used for calculation [address] 07/17/2023 Education Answer Date Recorded What [...] AM EDT Specialty Pharmacy [facility] [address] [place], [place] [address]-[address] [place] [address] Pharmacist, [facility] [address] [place] [address] refill - glatiramer MWF--lvm 03/29,04/08(wamb) 05/23/2025 1:30 PM EDT Office Visit [facility] Ophthalmology [address] [address] Maulik Toney DO [address] [place] [address] optic neuritis and MS 07/20/2025 12:00 PM EDT Office Visit Family Medicine [address] [place] [address] MD [address] [place] [address] physical 09/30/2025 9:00 AM [facility] Hematology/Oncology [address] [place] [address] [place] [address] OCREVUS documented as of this encounter Goals Goal Patient Goal Type Associated Problems Recent Progress Patient-Stated? Author Sleep Efficiency Care Plan Sleep Efficiency Lashawn Ny, PhD documented as of this encounter Visit Diagnoses Not on filedocumented in this encounter Additional Health Concerns Active Problems Noted Date Diagnosed Date Sleep Efficiency 07/08/2024 documented as of this encounter Care Teams Local Flatbed Driver Relationship Specialty Start Date End Date Rashard Lane MD [address] [place] [address] PCP - General Family Medicine 12/09/19 Juan Miguel Caballero [facility] 05/30/24 Olimpia Turpin, NEWSPAPER WRITER.MISSION SUPPORT SPECIALIST [address] [place] [address] Icing And Glaze Maker Family Medicine 10/18/24 Maricruz Valdovinos PA-C [address] [place] [address] Icing And Glaze Maker Internal Medicine 10/18/24 11/11/24 documented as of this encounter
--- OUTSIDE RECORDS SUMMARY | 2025-04-11 15:12 | XMS_ITS | Encounter Summary ---
Author Organization [facility] Address [address] [place] [address] Care Team Providers Care Books Binder Name Role Phone Rashard Lane MD Primary Care Provider [phone] Juan Miguel Caballero [facility] Unavailable Unavailable Olimpia Turpin BATCH STILL OPERATOR.CIGARETTE SELLER Unavailable Maricruz Valdovinos PA-C Unavailable [phone] Source Comments In the event this information is protected by the Federal Confidentiality of Alcohol and Drug AbusePatient Records regulations: The Federal rules restrict any use of the information to criminally investigate or prosecute any alcohol or drug abuse patient.[facility] Encounter Details Date Type Department Care Team (Late st Contact Info) Description 10/02/2024 Patient Msg eHin Physical Therapy [address] [facility] [place] [address] Estrella Vargas, PT, DPT [address] [place] [address] Appointment Request Social History Tobacco Use Types Packs/Day [...] often do you attend chur ch or denominational services? Never 12/16/2022 Do you belong to [...] Answer Date Recorded PHQ-2 score 0 07/19/2024 [facility] - [...] place to sleep or slept in a jail (including now)? No 12/16/2022 [place] Depression Scale Answer Date Recorded [place] Depression Scale Total 1 10/30/2020 The thought of harming myself has occurred to me . Never 10/30/2020 Area Deprivation Index Answer Date Ger rded National Score (1-100), lower number is lower ri sk 93 07/17/2023 State Score (1-10), lower number is lower risk 9 07/17/2023 Data from: https://www.neighborhoodatlas.medicine.[facility].edu/. Last address used for calculation [address] 07/17/2023 Education Answer Date Recorded [...] EDT Specialty Pharmacy [facility] [address] [place] [address] [address] [place] [address] Pharmacist, [facility] [address] [place] [address] [place] [address] refill - glatiramer MWF--lvm 03/29,04/08(wamb) 05/23/2025 1:30 PM EDT Office Visit [facility] Ophthalmology [address] [address] Maulik Toney DO [address] [place] [address] optic neuritis and MS 07/20/2025 12:00 PM EDT Office Visit Family Medicine [address] MD [address] [place] [address] physical 09/30/2025 9:00 AM [facility] Hematology/Oncology [address] [place] [address] [place] [address] OCREVUS documented as of this encounter Goals Goal Patient Goal Type Associated Problems Recent Progress Patient-Stated? Author Sleep Efficiency Care Plan Sleep Efficiency Lashawn Ny, PhD documented as of this encounter Visit Diagnoses Not on filedocumented in this encounter Additional Health Concerns Active Problems Noted Date Diagnosed Date Sleep Efficiency 07/08/2024 documented as of this encounter Care Teams Books Binder Relationship Specialty Start Date End Date Rashard Lane MD [address] [place] [address] PCP - General Family Medicine 12/09/19 Juan Miguel Caballero [facility] 05/30/24 Olimpia Turpin APRN.CIGARETTE SELLER [address] [place] [address] Cns Family Medicine 10/18/24 Maricruz Valdovinos PA-C [address] [place] [address] Cns Internal Medicine 10/18/24 11/11/24 documented as of this encounter
--- OUTSIDE RECORDS SUMMARY | 2025-04-11 15:12 | XMS_ITS | Encounter Summary ---
Author Organization [facility] Address [address] [place] [address] Care Team Providers Care Bus System Operator Name Role Phone Rashard Lane MD Primary Care Provider [phone] Encounter Details Date Type Department Care Team (Late st Contact Info) Description 08/17/2024 Clinisync Result Encounter [facility] External Department Unsolicited Clarke Hu, DO [address] [place] [address] [place] [address] Social History Tobacco Use Types Packs/Day Years [...] NB OPHT [address] [place] [phone] Simón Powell, DO [address] [place] [address] 04/17/2026 1:00 PM EDT Office Visit [facility] OB [address] [facility] [place] [address] Jahaira Byers PA [address] [place] [address] documented as of this encounter Procedures Procedure Name Priority Date/Time Associated Diagnosis Comments US OB FOLLOW UP TRANSABDOMINAL APPROACH 08/17/2024 1:02 PM EDT documented in this encounter Results * US OB follow up transabdominal approach (08/17/2024 1:02 PM EDT) Anatomical Region Laterality Modality Body Ultrasound 08/17/2024 1:02 PM EDT Narrative 08/17/2024 3:36 PM EDT Interpreted by: Marina Ordoñez Indication ======== Growth [...] care of your patient Follow-up ======== Per [facility] visit to follow, plan for serial third [...] EFW (oz) 4 oz EFW by: Hadlock ([id number]) Extended Foundry Laborer Coreroom 3.4 mm Head / Face / Neck [...] care of your patient Follow-up ======== Per [facility] visit to follow, plan for serial third [...] EFW (oz) 4 oz EFW by: Hadlock ([id number]) Extended Foundry Laborer Coreroom 3.4 mm Head / Face / Neck [...] gestational age Procedure Note Radiology, Radiologist, - 08/17/2024 Interpreted by: Marina Ordoñez Indication ======== Growth for AMA Multigravida, Maternal Thyroid Disorder, CervicalShortening. History ====== General History Height 168 cm [...] 74.6 40% 276.2 24%259.2 51% 56.3 28% 034426% Impression ========= -Appropriate growth and AFV -No malformations were identified on a limited survey -BPP Score is 8/ Thank you allowing us to participate in the care of your patient Follow-up ======== Per [facility] visit to follow, plan for serial third trimester growth scans General Evaluation Cardiac activity present. FHR 158 bpm. movements: visualized.Presentation: cephalic Placenta: Placental site: No Previa Seen, posterior Umbilical cord: Cord vessels: 3 vessel cord Amniotic fluid: MVP 5.0 cm. ZEN 11.8 cm. Q1 2.4 cm, Q2 1.8 cm, Q3 2.6 cm,Q4 5.0 cm Biometry Standard BPD 74.6 mm [...] EFW (oz) 4 oz EFW by: Hadlock ([id number]) Extended Foundry Laborer Coreroom 3.4 mm Head / Face / Neck [...] view: limited bylate gestational age Indication ======== Growth for AMA Multigravida, Maternal Thyroid Disorder, CervicalShortening. History ====== General History Height 168 cm [...] 74.6 40% 276.2 24%259.2 51% 56.3 28% 015037% Impression ========= -Appropriate growth and AFV -No malformations were identified on a limited survey -BPP Score is 8/8 Thank you allowing us to participate in the care of your patient Follow-up ======== Per M visit to follow, plan for serial third trimester growth scans General Evaluation Cardiac activity present. FHR 158 bpm. movements: visualized.Presentation: cephalic Placenta: Placental site: No Previa Seen, posterior Umbilical cord: Cord vessels: 3 vessel cord Amniotic fluid: MVP 5.0 cm. ZEN 11.8 cm. Q1 2.4 cm, Q2 1.8 cm, Q3 2.6 cm,Q4 5.0 cm Biometry Standard BPD 74.6 mm [...] EFW (oz) 4 oz EFW by: Hadlock ([id number]) Extended Foundry Laborer Coreroom 3.4 mm Head / Face / Neck [...] view: limited bylate gestational age us Clarke Mayte DO IMG OB US PROCEDURES Final Resul t documented in this encounter Visit Diagnoses Not on filedocumented in this encounter Care Teams Bus System Operator Relationship Specialty Start [place] [address] [place] [address] PCP - General Pediatrics 10/26/23 documented as of this encounter
--- OUTSIDE RECORDS SUMMARY | 2025-04-11 15:12 | XMS_ITS | Encounter Summary ---
Author Organization [facility] Address [address] [place] [address] Care Team Providers Care Environmental Sciences Professor Name Role Phone Rashard Lane MD Primary Care Provider Juan Miguel Caballero [facility] Unavailable Unavailable Olimpia Turpin FIRST CRUSHER.[facility] Unavailable Source Comments In the event this information is protected by the Federal Confidentiality of Alcohol and Drug AbusePatient Records regulations: The Federal rules restrict any use of the information to criminally investigate or prosecute any alcohol or drug abuse patient.[facility] Encounter Details Date Type Department Care Team (Late st Contact Info) Description 03/12/2025 Patient Msg Internal Medicine [place] [address] [place] [address] Provider, Ccf Billing Phone Number Social History Tobacco Use Types Packs/Day Years [...] How often do you attend chur or anabaptist services? More than 4 times per year 02/24/2025 Do you belong to any clubs o r organizations such as voodoo groups, unions, fraternal or athletic groups, or [...] Answer Date Recorded PHQ-2 score 2 03/10/2025 [facility] Occupat ional Health - [...] in a fci (including now)? No 12/16/2022 [place] Depression Scale Answer Date Recorded [place] Depression Scale Total 1 10/30/2020 The thought [...] is lower risk 9 07/17/2023 Data from: https://www.neighborhoodatlas.medicine.[facility].edu/. Last address used for calculation [address] 07/17/2023 Education Answer Date Recorded What is [...] of Assessment Author No 01/11/2021 4:00 PM Reny Castellano RN documented as of this encounter [...] AM EDT Specialty Pharmacy [facility] [address] [place], [place] 684444-[address] [place] [address] [facility] [address] [place] [address] refill - glatiramer MWF--lvm 03/29,04/08(wamb) 05/23/2025 1:30 PM EDT Office Visit [facility]HT Ophthalmology [address] [address] Maulik Toney, [address] [place] [address] optic neuritis and MS 07/20/2025 12:00 PM EDT Office Visit Family Medicine [facility] [address] [place] [address] MD [address] [place] [address] physical 09/30/2025 9:00 AM [facility] Hematology/Oncology [address] [place] [address] [place] [address] OCREVUS documented as of this encounter Goals Goal Patient Goal Type Associated Problems Recent Progress Patient-Stated? Author Sleep Efficiency Care Plan Sleep Efficiency Lashawn Ny, PhD documented as of this encounter Visit Diagnoses Not on filedocumented in this encounter Additional Health Concerns Active Problems Noted Date Diagnosed Date Sleep Efficiency 07/08/2024 documented as of this encounter Care Teams Environmental Sciences Professor Relationship Specialty Start Date End Date Rashard Lane MD [address] [place] [address] PCP - General Family Medicine 12/09/19 Juan Miguel Caballero [facility] 05/30/24 Olimpia Turpin, CYNTHIA.SEAT COVER MAKER [address] [place] [address] Radio Sportscaster Family Medicine 10/18/24 documented as of this encounter
--- OUTSIDE RECORDS SUMMARY | 2025-04-11 15:12 | XMS_ITS | Encounter Summary ---
Author Organization [facility] Address [address] [place] [address] Care Team Providers Care Card Cleaner Name Role Phone Rashard Lane MD Primary Care Provider [phone] Juan Miguel Caballero [facility] Unavailable Unavailable Olimpia Turpin ANODIC TREATER.SHOE TRIMMER Unavailable Maricruz Valdovinos PA-C Unavailable [phone] Source Comments In the event this information is protected by the Federal Confidentiality of Alcohol and Drug AbusePatient Records regulations: The Federal rules restrict any use of the information to criminally investigate or prosecute any alcohol or drug abuse patient.[facility] Encounter Details Date Type Department Care Team (Late st Contact Info) Description 01/30/2023 Patient [facility] [address] [id number] Provider, Ccf Schedule Psychology Visit Social History Tobacco Use Types Packs/Day Years [...] any clubs o r organizations such as jainism groups, unions, fraternal or athletic groups, or [...] Answer Date Recorded PHQ-2 score 0 01/13/2023 [facility] Occupat ional [facility] - Occupational Stress Questionnaire Answer Date Recorded [...] in a fdc (including now)? No 12/16/2022 [place] Depression Scale Answer Date Recorded [place] Depression Scale Total 1 10/30/2020 The thought of harming myself has occurred to me . Never 10/30/2020 Area Deprivation Index Answer Date Ger rded National Score (1-100), lower number is lower ri sk 89 11/27/2022 State Score (1-10), lower number is lower risk N ot on file 11/27/2022 Data from: https://www.neighborhoodatlas.medicine.[facility].edu/. Last address used for calculation [...] AM EDT Specialty Pharmacy [facility] [address] [place], [place] [address]604-b[address] [place] [address] Pharmacist, [facility]3 [address] [place] [address] refill - glatiramer MWF--lvm 03/29,04/08(wa) 05/23/2025 1:30 PM EDT Office Visit [facility] Ophthalmology [address] [address] Maulik Toney DO [address] [place], [place] [address]1695 optic neuritis and MS 07/20/2025 12:00 PM EDT Office Visit Family Medicine [facility] [address] [place] [address] MD [address] [place] [address] physical 09/30/2025 9:00 AM [facility] Hematology/Oncology [address] [place] [address] [place] [address] OCREVUS documented as of this encounter Visit Diagnoses Not on filedocumented in this encounter Additional Health Concerns Infection Onset Date Last Indicated Resolved Time COVID-19 Rule-Out 02/12/2023 02/12/2023 02/13/2023 1:49 AM EDT COVID-19 Confirmed 02/12/2023 02/12/2023 8:51 PM EDT documented as of this encounter Care Teams Card Cleaner Relationship Specialty Start Date End Date Rashard Lane MD [address] [place] [address] PCP - General Family Medicine 12/09/19 Juan Miguel Caballero [facility]acy 05/30/24 Olimpia Turpin, CYNTHIA.SHOE TRIMMER [address] [place] [address] Room Server Family Medicine 10/18/24 Maricruz Valdovinos PA-C [address] [place] [address] Room Server Internal Medicine 10/18/24 11/11/24 documented as of this encounter
--- OUTSIDE RECORDS SUMMARY | 2025-04-11 15:12 | XMS_ITS | Encounter Summary ---
Author Organization [facility] Address [facility] [place] [address] Care Team Providers Care Roller Helper Name Role Phone Rashard Lane MD Primary Care Provider [phone] Juan Miguel Caballero [facility] Unavailable Unavailable Olimpia Turpin ENVIRONMENTAL ENGINEERING AIDE.[facility] Unavailable [phone] Source Comments In the event this information is protected by the Federal Confidentiality of Alcohol and Drug AbusePatient Records regulations: The Federal rules restrict any use of the information to criminally investigate or prosecute any alcohol or drug abuse patient.[facility] Reason for Visit * Reason Comments Ocrevus Gray Checklist Encounter Details Date Type Department Care Team (Late st Contact Info) Description 02/03/2025 [facility] [address] [place] [id number] Anya Cast APRN.SANITARY PLUMBER [address] [place] [address] Ocrevus Gray Checklist Social History Tobacco Use Types Packs/Day Years [...] often do you attend chur ch or worship services? Never 12/16/2022 Do you belong to any clubs o r organizations such as rastafarian groups, unions, fraternal [...] 12/16/2022 PHQ-2 Answer Date Recorded PHQ-2 score 2 02/07/2025 [facility] - Occupational Stress Questionnaire Answer [...] place to sleep or slept in a long-term (including now)? No 12/16/2022 [place] Depression Scale Answer Date Recorded [place] Depression Scale Total 1 10/30/2020 The thought of harming myself has occurred to me . Never 10/30/2020 Area Deprivation Index Answer Date Ger rded National Score (1-100), lower number is lower ri sk 93 07/17/2023 State Score (1-10), lower number is lower risk 9 07/17/2023 Data from: https://www.neighborhoodatlas.medicine.[facility].edu/. Last address used for calculation [address] [facility] 07/17/2023 Education Answer Date Recorded What is [...] AM EDT Specialty Pharmacy [facility] [address] [place], [place] 5[address]14-b-100 [place] [address] Pharmacist, [facility]ty[facility]3 [address] [place] [address] refill - glatiramer MWF--lvm 03/29,04/08(wamb) 05/23/2025 1:30 PM EDT Office Visit [facility] Ophthalmology [address] [id number] Maulik Toney DO [address] [place] [address] optic neuritis and MS 07/20/2025 12:00 PM EDT Office Visit Family Medicine [address] MD [address] [place] [address] physical 09/30/2025 9:00 AM [facility] Hematology/Oncology [address] [place] [address] [place] [address] OCREVUS documented as of this encounter Goals Goal Patient Goal Type Associated Problems Recent Progress Patient-Stated? Author Sleep Efficiency Care Plan Sleep Efficiency Lashawn Ny, PhD documented as of this encounter Visit Diagnoses Not on filedocumented in this encounter Additional Health Concerns Active Problems Noted Date Diagnosed Date Sleep Efficiency 07/08/2024 documented as of this encounter Care Teams Roller Helper Relationship Specialty Start Date End Date Rashard Lane MD [address] [place] [address] PCP - General Family Medicine 12/09/19 Juan Miguel Caballero, [facility] 05/30/24 Olimpia Turpin, ENVIRONMENTAL ENGINEERING AIDE.SANITARY PLUMBER [address] [place] [address] Refinery Superintendent Family Medicine 10/18/24 documented as of this encounter
--- OUTSIDE RECORDS SUMMARY | 2025-04-11 15:12 | XMS_ITS | Encounter Summary ---
Author Organization [employer] Address [id number] [address] [place] [address] Care Team Providers Care Punchboard Assembler Name Role Phone Rashard Lane Primary Care Provider [phone] Encounter Details Date Type Department Care Team (Late st Contact Info) Description 10/30/2020 [facility] [address] [place] [phone] Milady Harman RMA Social History Tobacco Use Types Packs/Day Years [...] have Coronavirus / COVID-19? No / Unsure 10/30/2020 3:34 PM EST documented as of this encounter Miscellaneous Notes * Telephone Encounter - WENDY Elkins - 10/30/2020 4:14 PM EST Patient needs to be called for appointment in May when template opens up. WENDY Elkins 10/30/20 1615 * Telephone Encounter - WENDY Elkins - 10/30/2020 4:14 PM EST Contacted patient to schedule appointment, no voicemail left due to mailbox being full. * Telephone Encounter - Joelle Martell - 10/30/2020 4:14 PM EST Received call today 11/08/20 10:10 from patient who was calling back in regards to previous message. Patient has been scheduled for follow up with Dr. Peters on 05/28/21 9:15. * Telephone Encounter - WENDY Elkins - 10/30/2020 4:14 PM EST Noted thanks. documented in this encounter Plan of Treatment Not on file documented as of this encounter Goals Goal Patient Goal Type Associated Problems Recent Progress Patient-Stated? 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 documented as of this encounter Visit Diagnoses Not on filedocumented in this encounter Care Teams Punchboard Assembler Relationship Specialty Start Date End Date [address] [address] [place] [address] PCP - General Family Medicine 12/22/19 documented as of this encounter
--- OUTSIDE RECORDS SUMMARY | 2025-04-11 15:12 | XMS_ITS | Encounter Summary ---
Author Organization [facility] Address [address] [place] [address] Care Team Providers Care Escort Car Driver Name Role Phone Rashard Lane MD Primary Care Provider [phone] Juan Miguel Caballero [facility] Unavailable Unavailable Olimpia Turpin WRAP YARN SORTER.[facility] Unavailable Maricruz Valdovinos PA-C Unavailable [phone] Source Comments In the event this information is protected by the Federal Confidentiality of Alcohol and Drug AbusePatient Records regulations: The Federal rules restrict any use of the information to criminally investigate or prosecute any alcohol or drug abuse patient.[facility] Encounter Details Date Type Department Care Team (Late st Contact Info) Description 02/13/2023 Get Medical Advice Family Medicine [facility] [address] [place], [place] [phone] Rashard [address] MD [address] [place], [place] [phone] How long to quarantine Social History Tobacco Use Types Packs/Day Years [...] you attend chur ch or gnosticist services? Never 12/16/2022 Do you belong to any clubs o r organizations such as hindu groups, unions, fraternal [...] PHQ-2 Answer Date Recorded PHQ-2 score 0 02/11/2023 [facility] of Occupat ional Health - Occupational [...] in a mcfp (including now)? No 12/16/2022 [place] Depression Scale Answer Date Recorded [place] Depression Scale Total 1 10/30/2020 The thought of harming myself has occurred to me . Never 10/30/2020 Area Deprivation Index Answer Date Ger rded National Score (1-100), lower number is lower ri sk 89 11/27/2022 State Score (1-10), lower number is lower risk N ot on file 11/27/2022 Data from: https://www.neighborhoodatlas.medicine.[facility].edu/. Last address used for calculation [address] [...] AM EDT Specialty Pharmacy [facility] [address] [place] [address] AC4[address] [place] [address] Pharmacist, [facility]ty[facility] [address] [place] [address] refill - glatiramer MWF--lvm 03/29,04/08(wamb) 05/23/2025 1:30 PM EDT Office Visit [facility] Ophthalmology [address] [address] Maulik Toney DO [address] [place] [address] optic neuritis and MS 07/20/2025 12:00 PM EDT Office Visit Family Medicine [address] MD [address] [place] [address] physical 09/30/2025 9:00 AM [facility] Hematology/Oncology [address] [place] [address] [place] [address] OCREVUS documented as of this encounter Visit Diagnoses Not on filedocumented in this encounter Additional Health Concerns Infection Onset Date Last Indicated Resolved Time COVID-19 Rule-Out 02/12/2023 02/12/2023 02/13/2023 1:49 AM EDT COVID-19 Confirmed 02/12/2023 02/12/2023 8:51 PM EDT documented as of this encounter Care Teams Escort Car Driver Relationship Specialty Start Date End Date Rashard Lane MD [address] [place] [address] PCP - General Family Medicine 12/09/19 Juan Miguel Caballero [facility] Pharmacy 05/30/24 Olimpia Turpin, WRAP YARN SORTER.[facility] [address] [place] [address] Edger Liner Family Medicine 10/18/24 Maricruz Valdovinos PA-C [address] [place] [address] Edger Liner Internal Medicine 10/18/24 11/11/24 documented as of this encounter
--- OUTSIDE RECORDS SUMMARY | 2025-04-11 15:12 | XMS_ITS | Encounter Summary ---
Author Organization [facility] tem Address [id number] [address] [place] [address] Care Team Providers Care Clam Picker Name Role Phone Rashard Lane Primary Care Provider [phone] Encounter Details Date Type Department Care Team (Late st Contact Info) Description 07/21/2020 Telephone [facility] - Radiation Oncology [address] [facility] [place] [phone] [address] [address] [place] [address] Social History Tobacco Use Types [...] Miscellaneous Notes * Telephone Encounter - Yoan Hoover Oneyda - 07/21/2020 11:28 AM EDT S: Pt called and asked us to cancel her tysabri appts as she is . documented in this encounter Plan of Treatment Not on file documented as of this encounter Goals Goal Patient Goal Type Associated Problems Recent Progress Patient-Stated? 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 documented as of this encounter Visit Diagnoses Not on filedocumented in this encounter Care Teams Clam Picker Relationship Specialty Start Date End Date [address] [address] [place] [address] PCP - General Family Medicine 12/22/19 documented as of this encounter
--- OUTSIDE RECORDS SUMMARY | 2025-04-11 15:12 | XMS_ITS | Encounter Summary ---
Author Organization [facility] Address [address] [place] [address] Care Team Providers Care Laser Engraver Name Role Phone Janice Lane MD Primary Care Provider [phone] Encounter Details Date Type Department Care Team (Late st Contact Info) Description 05/25/2024 Clinisync Result Encounter [facility] External Department Unsolicited John Hu, DO [address] [place] [address] [place] [address] Social History Tobacco Use Types Packs/Day Years [...] NB OPHT [address] [place] [address] Simón [place], DO [address] [place] [address] 04/17/2026 1:00 PM EDT Office Visit [facility] OB [address] [facility] [address] [phone] Jahaira Byers PA [address] [place] documented as of this encounter Procedures Procedure Name Priority Date/Time Associated Diagnosis Comments US OB CERVICAL LENGTH 05/25/2024 2:13 PM EDT documented in this encounter Results * US OB CERVICAL LENGTH (05/25/2024 2:13 PM EDT) Anatomical Region Laterality Modality Other 05/25/2024 2:13 PM EDT Narrative 05/25/2024 2:15 PM EDT [address] [address] Ultrasound Report Signed Patient: CAROL ANN ROMAN MR#: [id number] : 1985 Acct:[id number] Age/Sex: 38 / F ADM Date: 05/25/24 Loc: US Attending Dr: John Hu D.O. Ordering Physician: John Hu D.O. Date of Service: 05/25/24 Procedure(s): US OB cervical length Accession Number(s): [id number] cc: John Hu D.O.; Physician,Non-Staff M.Jong The [address] [address] Patient Name: CAROL ANN ROMAN MRN: [id number] date: 1985 Sex: F Assigned Patient Location: US Current Patient Location: US Accession/Order Number: [id number] Exam Date: 05/25/2024 13:16 Report Date: 05/25/2024 14:13 At the request of: JOHN HU Procedure: US OB cervical length EXAMINATION: US OB cervical length HISTORY: HISTORY OF LEEP COMPARISON: 04/01/2024 FINDINGS: position: Cephalic presentation, longitudinal lie Heart rate: 141 beats minute Cervix: 2.6 cm, closed Clinical age: 17 weeks 6 days Clinical ELLIOTT: 10/27/2024 US/US OB cervical length IMPRESSION: Closed cervix measuring 2.6 cm in length Electronically authenticated by: JANICE ERWIN Date: 05/25/2024 14:13 Dictated By: Janice Erwin M.D. Signed By: 05/25/24 1415 DD/ 1413 TD/TT: Rewinder: Procedure Note Radiology, Radiologist, MD - 05/25/2024 [place] [address] Ultrasound Report Signed Patient: CAROL ANN ROMAN FMR#: [id number] : 1985Acct:[id number] Age/Sex: 38 / FADM Date: 05/25/24 Loc: US Attending Dr: John Hu D.O. Ordering Physician: John Hu D.O. Date of Service: 05/25/24 Procedure(s): US OB cervical length Accession Number(s): [id number] cc: John Hu D.O.; Physician,Non-Staff [place] [id number] Patient Name: CAROL ANN ROMAN MRN: [id number] date: 1985 Sex: F Assigned Patient Location: US Current Patient Location: US Accession/Order Number: [id number] Exam Date: 05/25/2024 13:16 Report Date: 05/25/2024 14:13 At the request of: JOHN HU Procedure: US OB cervical length EXAMINATION: US OB cervical length HISTORY: HISTORY OF LEEP COMPARISON: 04/01/2024 FINDINGS: position: Cephalic presentation, longitudinal lie Heart rate: 141 beats minute Cervix: 2.6 cm, closed Clinical age: 17 weeks 6 days Clinical ELLIOTT: 10/27/2024 US/US OB cervical length IMPRESSION: Closed cervix measuring 2.6 cm in length Electronically authenticated by: JANICE ERWIN Date: 05/25/2024 14:13 Dictated By: Janice Erwin M.D. Signed By:05/25/24 1415 DD/ 1413 TD/TT: Rewinder: us John Mayte DO [facility] Final Result documented in this encounter Visit Diagnoses Not on filedocumented in this encounter Care Teams Laser Engraver Relationship Specialty Start [place] [address] [place] [address] PCP - General Pediatrics 10/26/23 documented as of this encounter
--- OUTSIDE RECORDS SUMMARY | 2025-04-11 15:12 | XMS_ITS | Encounter Summary ---
Author Organization [facility] Address [facility] [place] [address] Care Team Providers Care Form Drafter Name Role Phone Rashard Lane MD Primary Care Provider [phone] Juan Miguel Caballero [facility] Unavailable Unavailable Olimpia Turpin SUB PLANT MANAGER.HAND BINDER CUTTER Unavailable Maricruz Valdovinos PA-C Unavailable [phone] Source Comments In the event this information is protected by the Federal Confidentiality of Alcohol and Drug AbusePatient Records regulations: The Federal rules restrict any use of the information to criminally investigate or prosecute any alcohol or drug abuse patient.[facility] Encounter Details Date Type Department Care Team (Late st Contact Info) Description 01/29/2023 Patient [facility] [address] [place] [address] [place] [address] [place] [address] Labs Social History Tobacco Use Types Packs/Day Years [...] 12/16/2022 How often do you attend chur or mu-ism services? Never 12/16/2022 Do you belong to any clubs o r organizations such as scientologist groups, unions, fraternal or athletic groups, or [...] Answer Date Recorded PHQ-2 score 0 01/13/2023 [facility] ional Health - Occupational [...] in a prison (including now)? No 12/16/2022 [place] Depression Scale Answer Date Recorded [place] Depression Scale Total 1 10/30/2020 The thought of harming myself has occurred to me . Never 10/30/2020 Area Deprivation Index Answer Date Ger rded National Score (1-100), lower number is lower ri sk 89 11/27/2022 State Score (1-10), lower number is lower risk N ot on file 11/27/2022 Data from: https://www.neighborhoodatlas.medicine.[facility].edu/. Last address used for calculation [address] [facility] 11/27/2022 Education Answer Date Recorded What is [...] AM EDT Specialty Pharmacy [facility] [address] [place] [address]-[address] [place] [address] Pharmacist, Specialty[facility]3 [address] [place] [address] refill - glatiramer MWF--lvm 03/29,04/08(wa) 05/23/2025 1:30 PM EDT Office Visit [facility] Ophthalmology [address] [address] Maulik Toney DO [address] [place] [address] optic neuritis and MS 07/20/2025 12:00 PM EDT Office Visit Family Medicine [id number] Rashard [address] MD [address] [place] [address] physical 09/30/2025 9:00 AM [facility] Hematology/Oncology [address] [place] [address] [place] [address] OCREVUS documented as of this encounter Visit Diagnoses Not on filedocumented in this encounter Additional Health Concerns Infection Onset Date Last Indicated Resolved Time COVID-19 Rule-Out 02/12/2023 02/12/2023 02/13/2023 1:49 AM EDT COVID-19 Confirmed 02/12/2023 02/12/2023 8:51 PM EDT documented as of this encounter Care Teams Form Drafter Relationship Specialty Start Date End Date Rashard Lane MD [address] [place] [address] PCP - General Family Medicine 12/09/19 Juan Miguel Caballero [facility] 05/30/24 Olimpia Turpin, SUB PLANT MANAGER.HAND BINDER CUTTER [address] [place] [address] Melter Loader Family Medicine 10/18/24 Maricruz Valdovinos PA-C [address] [place] [address] Melter Loader Internal Medicine 10/18/24 11/11/24 documented as of this encounter
--- OUTSIDE RECORDS SUMMARY | 2025-04-11 15:12 | XMS_ITS | Encounter Summary ---
Author Organization [facility] Address [address] [place] [address] Care Team Providers Care Wire Twister Name Role Phone Rashard Lane MD Primary Care Provider [phone] Juan Miguel Caballero [facility] Unavailable Unavailable Olimpia Turpin SHIP'S CARPENTER.[facility] Unavailable Source Comments In the event this information is protected by the Federal Confidentiality of Alcohol and Drug AbusePatient Records regulations: The Federal rules restrict any use of the information to criminally investigate or prosecute any alcohol or drug abuse patient.[facility] Reason for Visit * Reason Onset Date Comments SPP Neurology - Medication Refill 03/29/2025 Glatiramer Encounter Details Date Type Department Care Team (Latest Contact Info) Description 03/29/2025 Specialty Pharmacy [facility] [address] [place] [address] Edu Cain RPh SPP Neurology - Medication Refill (Glatiramer) Social History Tobacco Use Types Packs/Day Years [...] How often do you attend chur or anglican services? More than 4 times per year 02/24/2025 Do you belong to any clubs o r organizations such as religious groups, unions, fraternal or athletic groups, or [...] Answer Date Recorded PHQ-2 score 2 03/10/2025 [facility] - Occupational Stress Questionnaire Answer Date [...] in a penitentiary (including now)? No 12/16/2022 [place] Depression Scale Answer Date Recorded [place] Depression Scale Total 1 10/30/2020 The thought [...] AM EDT Specialty Pharmacy [facility] [address] [place] [address] Pharmacist, [facility] [address] [place] [address] refill - glatiramer MWF--lvm 03/29,04/08(wamb) 05/23/2025 1:30 PM EDT Office Visit [facility] Ophthalmology [address] [id number] Maulik Toney, DO [address] [place] [address] optic neuritis and MS 07/20/2025 12:00 PM EDT Office Visit Family Medicine [facility] [address] [place] [address] MD [address] [place], [place] [id number] physical 09/30/2025 9:00 AM [facility] Hematology/Oncology [address] [place] [address] [place] [address] OCREVUS documented as of this encounter Goals Goal Patient Goal Type Associated Problems Recent Progress Patient-Stated? Author Sleep Efficiency Care Plan Sleep Efficiency Lashawn Ny, PhD documented as of this encounter Visit Diagnoses Diagnosis Multiple sclerosis (HCC)- Primary Multiple sclerosis documented in this encounter Additional Health Concerns Active Problems Noted Date Diagnosed Date Sleep Efficiency 07/08/2024 documented as of this encounter Care Teams Wire Twister Relationship Specialty Start Date End Date Rashard Lane MD [address] [place] [address] PCP - General Family Medicine 12/09/19 Juan Miguel Caballero [facility] 05/30/24 Olimpia Turpin, SHIP'S CARPENTER.SR. LOGISTICS ANALYST [address] [place] [address] Oracle Security Consultant Family Medicine 10/18/24 documented as of this encounter
--- OUTSIDE RECORDS SUMMARY | 2025-04-11 15:12 | XMS_ITS | Encounter Summary ---
[facility] Address [id number] [address] [place] [address] Care Team Providers Care Mold Closer Name Role Phone DomingoRashard parks Sneha Primary Care Provider [phone] Encounter Details Date Type Department Care Team ([facility] st Contact Info) Description 08/18/2020 Telephone [facility] [address] [facility] [address] [place] [address] Es Weller, PharmD [address], [facility] [address] [place], [place] [id number] Social History Tobacco Use Types Packs/Day Years [...] encounter Miscellaneous Notes * Telephone Encounter - Es Weller PharmD - 08/18/2020 9:21 AM EDT Ha prior authorization done via telephone call with Romelia Martin [facility]. Case [id number]. Decision will be made within 24-72 hours. documented in this encounter Plan of Treatment Not on file documented as of this encounter Goals Goal Patient Goal Type Associated Problems Recent Progress Patient-Stated? 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 documented as of this encounter Visit Diagnoses Not on filedocumented in this encounter Care Teams Mold Closer Relationship Specialty Start Date End Date Rashard [address] [address] [place] [address] PCP - General Family Medicine 12/22/19 documented as of this encounter
--- OUTSIDE RECORDS SUMMARY | 2025-04-11 15:12 | XMS_ITS | Encounter Summary ---
Author Organization [facility] Address [address] [place] [address] Care Team Providers Care Prick Stitcher Name Role Phone Rashard Lane MD Primary Care Provider [phone] Juan Miguel Caballero [facility] Unavailable Unavailable Olimpia Turpin ROAD ENGINEER.SECOND BALLER Unavailable Source Comments In the event this information is protected by the Federal Confidentiality of Alcohol and Drug AbusePatient Records regulations: The Federal rules restrict any use of the information to criminally investigate or prosecute any alcohol or drug abuse patient.[facility] Encounter Details Date Type Department Care Team (Late st Contact Info) Description 03/15/2025 [facility] [address] [place] [phone] Anya Cast APRN.SECOND BALLER [address] [place] [address] Change Ocrevus location Social History Tobacco Use Types Packs/Day Years [...] How often do you attend chur or denominational services? More than 4 times per year 02/24/2025 Do you belong to any clubs o r organizations such as hoahaoism groups, unions, fraternal or athletic groups, or [...] Answer Date Recorded PHQ-2 score 2 03/10/2025 [facility] Health - Occupational Stress Questionnaire Answer Date [...] place to sleep or slept in a [place] health care facility (including now)? No 12/16/2022 [place] Depression Scale Answer Date Recorded [place] Depression Scale Total 1 10/30/2020 The thought [...] AM EDT Specialty Pharmacy [facility] [facility] [address] [place] [address] Pharmacist, [facility]ty[facility] [address] [place] [address] [place] [address] refill - glatiramer MWF--lvm 03/29,04/08(wamb) 05/23/2025 1:30 PM EDT Office Visit [facility]HT Ophthalmology [address] [place] [phone] Maulik Toney, DO [address] [place] [address] optic neuritis and MS 07/20/2025 12:00 PM EDT Office Visit Family Medicine [facility] [address] [place] [address] MD [address] [place] [address] physical 09/30/2025 9:00 AM [facility] Hematology/Oncology [address] [place] [address] [place] [address] OCREVUS documented as of this encounter Goals Goal Patient Goal Type Associated Problems Recent Progress Patient-Stated? Author Sleep Efficiency Care Plan Sleep Efficiency Lashawn Ny, PhD documented as of this encounter Visit Diagnoses Not on filedocumented in this encounter Additional Health Concerns Active Problems Noted Date Diagnosed Date Sleep Efficiency 07/08/2024 documented as of this encounter Care Teams Prick Stitcher Relationship Specialty Start Date End Date Rashard Lane MD [address] [place] [address] PCP - General Family Medicine 12/09/19 Juan Miguel Caballero [facility] 05/30/24 Olimpia Trupin APRN.SECOND BALLER [address] [place] [address] Acid Conditioning Worker Family Medicine 10/18/24 documented as of this encounter
--- OUTSIDE RECORDS SUMMARY | 2025-04-11 15:12 | XMS_ITS | Encounter Summary ---
Author Organization [facility] Address [address] [place] [address] Care Team Providers Care Chemists Name Role Phone Rashard Lane MD Primary Care Provider Juan Miguel Caballero [facility] Unavailable Unavailable Olimpia Turpin COLD MEAT CHEF.BULB INSPECTOR Unavailable [phone] Source Comments In the event this information is protected by the Federal Confidentiality of Alcohol and Drug AbusePatient Records regulations: The Federal rules restrict any use of the information to criminally investigate or prosecute any alcohol or drug abuse patient.[facility] Encounter Details Date Type Department Care Team (Late st Contact Info) Description 02/11/2025 Results Follow-Up [facility] [place] [address] [phone] Anya Cast APRN.BULB INSPECTOR [address] [place] [address] Social History Tobacco Use Types Packs/Day Years [...] often do you attend chur ch or mormonism services? Never 12/16/2022 Do you belong to any clubs o r organizations such as jewish groups, unions, fraternal or athletic groups, or [...] Answer Date Recorded PHQ-2 score 2 02/07/2025 [facility] - Occupational Stress Questionnaire Answer Date [...] in a [facility] (including now)? No 12/16/2022 [place] Depression Scale Answer Date Recorded [place] Depression Scale Total 1 10/30/2020 The thought of harming myself has occurred to me . Never 10/30/2020 Area Deprivation Index Answer Date Ger rded National Score (1-100), lower number is lower ri sk 93 07/17/2023 State Score (1-10), lower number is lower risk 9 07/17/2023 Data from: https://www.neighborhoodatlas.medicine.[facility].edu/. Last address used for calculation [address] 07/17/2023 Education Answer Date Recorded What [...] Assessment Author No 01/11/2021 4:00 PM Gomez Casetllano RN documented as of this encounter Mental [...] AM EDT Specialty Pharmacy [facility] [address] [place], [place] [address] [place] [address] Pharmacist, [facility] [address] [place] [address] refill - glatiramer MWF--lvm 03/29,04/08(wa) 05/23/2025 1:30 PM EDT Office Visit [facility] Ophthalmology [address] [address] Maulik Toney DO [address] [place] [address] optic neuritis and MS 07/20/2025 12:00 PM EDT Office Visit Family Medicine [facility] [address] [place] [address] MD [address] [place] [address] physical 09/30/2025 9:00 AM [facility] Hematology/Oncology [address] [place] [address] [place] [address] OCREVUS documented as of this encounter Goals Goal Patient Goal Type Associated Problems Recent Progress Patient-Stated? Author Sleep Efficiency Care Plan Sleep Efficiency Lashawn Ny, PhD documented as of this encounter Visit Diagnoses Not on filedocumented in this encounter Additional Health Concerns Active Problems Noted Date Diagnosed Date Sleep Efficiency 07/08/2024 documented as of this encounter Care Teams Chemists Relationship Specialty Start Date End Date Rashard Lane MD [address] [place] [address] PCP - General Family Medicine 12/09/19 Juan Miguel Caballero [facility] 05/30/24 Olimpia Turpin, COLD MEAT CHEF.BULB INSPECTOR [address] [place] [address] Youth Services Librarian Family Medicine 10/18/24 documented as of this encounter
--- OUTSIDE RECORDS SUMMARY | 2025-04-11 15:12 | XMS_ITS | Encounter Summary ---
Author Organization [facility] Address [address] [place] [address] Care Team Providers Care Cosmetic Sales Assistant Name Role Phone Rashard Lane MD Primary Care Provider Juan Miguel Caballero [facility] Unavailable Unavailable Olimpia snow SAND AND GRAVEL PLANT OPERATOR.[employer] Unavailable Source Comments In the event this information is protected by the Federal Confidentiality of Alcohol and Drug AbusePatient Records regulations: The Federal rules restrict any use of the information to criminally investigate or prosecute any alcohol or drug abuse patient.[facility] Encounter Details Date Type Department Care Team (Late st Contact Info) Description 03/14/2025 Results Follow-Up Family Medicine [facility] [address] [place], [place] [phone] Rashard Lane MD [address] [place] [address] Social History Tobacco Use Types Packs/Day Years [...] How often do you attend chur or evangelical services? More than 4 times per year [...] Answer Date Recorded PHQ-2 score 2 03/10/2025 [facility] Occupat ional Health - Occupational [...] place to sleep or slept in a usp (including now)? No 12/16/2022 [place] Depression Scale Answer Date Recorded [place] Depression Scale Total 1 10/30/2020 The thought [...] AM EDT Specialty Pharmacy [facility] [facility] [address] [place] [address] Pharmacist, [facility]ty[facility] [address] [place] [address] [place] [address] refill - glatiramer MWF--lvm 03/29,04/08(wamb) 05/23/2025 1:30 PM EDT Office Visit OPHT Ophthalmology [address] [address] [phone] Maulik Toney, DO [address] [place] [address] optic neuritis and MS 07/20/2025 12:00 PM EDT Office Visit Family Medicine [facility] [address] [place] [address] MD [address] [place] [address] physical 09/30/2025 9:00 AM [facility] Hematology/Oncology [address] [place] [address] [place] [address] OCREVUS documented as of this encounter Goals Goal Patient Goal Type Associated Problems Recent Progress Patient-Stated? Author Sleep Efficiency Care Plan Sleep Efficiency Lashawn Ny, PhD documented as of this encounter Visit Diagnoses Not on filedocumented in this encounter Additional Health Concerns Active Problems Noted Date Diagnosed Date Sleep Efficiency 07/08/2024 documented as of this encounter Care Teams Cosmetic Sales Assistant Relationship Specialty Start Date End Date Rashard Lane MD [address] [place] [address] PCP - General Family Medicine 12/09/19 Juan Miguel Caballero [facility] 05/30/24 Olimpia Turpin, SAND AND GRAVEL PLANT OPERATOR.LIFTS AND CRANES INSPECTOR [address] [place] [address] Fertilizer Loader Family Medicine 10/18/24 documented as of this encounter
--- OUTSIDE RECORDS SUMMARY | 2025-04-11 15:12 | XMS_ITS | Encounter Summary ---
Author Organization [facility] Address [address] [place] [address] Care Team Providers Care Behavioral Health Director Name Role Phone Rashard Lane MD Primary Care Provider Juan Miguel Caballero [facility] Unavailable Unavailable Olimpia Turpin FLAT GRINDER OPERATOR.LEARNING OPERATIONS SPECIALIST Unavailable [phone] Source Comments In the event this information is protected by the Federal Confidentiality of Alcohol and Drug AbusePatient Records regulations: The Federal rules restrict any use of the information to criminally investigate or prosecute any alcohol or drug abuse patient.[facility] Encounter Details Date Type Department Care Team (Late st Contact Info) Description 03/18/2025 Results Follow-Up [facility] [address] [phone] Anya aCst APRN.LEARNING OPERATIONS SPECIALIST [address] [place] [address] Social History Tobacco Use Types [...] often do you attend chur ch or catholic services? More than 4 times per year 02/24/2025 Do you belong to any clubs o r organizations such as congregation groups, unions, fraternal [...] Answer Date Recorded PHQ-2 score 2 03/10/2025 [facility] Occupat ional Health - Occupational [...] in a half-way (including now)? No 12/16/2022 [place] Depression Scale Answer Date Recorded [place] Depression Scale Total 1 10/30/2020 The thought [...] AM EDT Specialty Pharmacy [facility] [place] [address] Pharmacist, [facility]ty[facility] [address] [place] [address] [place] [address] refill - glatiramer MWF--lvm 03/29,04/08(wamb) 05/23/2025 1:30 PM EDT Office Visit [facility] Ophthalmology [address] [place] [phone] Maulik Toney DO [address] [place] [address] optic neuritis and MS 07/20/2025 12:00 PM EDT Office Visit Family Medicine [facility] [address] [place] [address] MD [address] [place] [address] physical 09/30/2025 9:00 AM [facility] Hematology/Oncology [address] [place] [address] [place] [address] OCREVUS documented as of this encounter Goals Goal Patient Goal Type Associated Problems Recent Progress Patient-Stated? Author Sleep Efficiency Care Plan Sleep Efficiency No Lashawn Lazo, PhD documented as of this encounter Visit Diagnoses Not on filedocumented in this encounter Additional Health Concerns Active Problems Noted Date Diagnosed Date Sleep Efficiency 07/08/2024 documented as of this encounter Care Teams Behavioral Health Director Relationship Specialty Start Date End Date Rashard Lane MD [address] [place] [address] PCP - General Family Medicine 12/09/19 Juan Miguel Caballero, [facility] 05/30/24 Olimpia Turpin, FLAT GRINDER OPERATOR.LEARNING OPERATIONS SPECIALIST [address] [place] [address] Heat Treat Furnace Operator Family Medicine 10/18/24 documented as of this encounter
--- OUTSIDE RECORDS SUMMARY | 2025-04-11 15:12 | XMS_ITS | Encounter Summary ---
Author Organization [facility] Address [address] [place] [address] Care Team Providers Care Heavy Duty Mechanic Farm Equipment Name Role Phone Rashard Lane MD Primary Care Provider [phone] Juan Miguel Caballero [facility] Unavailable Unavailable Olimpia Turpin ESCALATOR CONSTRUCTOR.INTAKE COUNSELOR Unavailable Maricruz Valdovinos PA-C Unavailable [phone] Source Comments In the event this information is protected by the Federal Confidentiality of Alcohol and Drug AbusePatient Records regulations: The Federal rules restrict any use of the information to criminally investigate or prosecute any alcohol or drug abuse patient.[facility] Reason for Referral * Consult, Test, Treat (Routine) - Authorized Specialty Diagnoses / Procedures Referred By [place] Referred To Contact Dermatology Diagnoses Atypical mole Procedures CONSULT TO DERMATOLOGY OFFICE/OUTPATIENT [facility] [address] MD [address] [place] [address] Phone: tel: fax: Referral ID Status Reason Start Date Expiration Date Visits Requested Visits Authorized [id number] Authorized PCP Requested Referral 08/11/2024 08/11/2025 1 1 Encounter Details Date Type Department Care Team (Late st Contact Info) Description 08/10/2024 Get Medical Advice Family Medicine [facility] [address] [place] [address] MD [address] [place] [address] Can I get something for my eyes Social History Tobacco Use Types Packs/Day Years [...] often do you attend chur ch or christianity services? Never 12/16/2022 Do you belong to any clubs o r organizations such as catholic groups, unions, fraternal or athletic groups, or [...] Answer Date Recorded PHQ-2 score 0 07/19/2024 [employer] [facility]at [facility] - Occupational Stress Questionnaire Answer Date [...] place to sleep or slept in a senior care (including now)? No 12/16/2022 [place] Depression Scale Answer Date Recorded [place] Depression Scale Total 1 10/30/2020 The thought of harming myself has occurred to me . Never 10/30/2020 Area Deprivation Index Answer Date Ger rded National Score (1-100), lower number is lower ri sk 93 07/17/2023 State Score (1-10), lower number is lower risk 9 07/17/2023 Data from: https://www.neighborhoodatlas.medicine.w[place].edu/. Last address used for calculation [address] [...] of Assessment Author No 01/11/2021 4:00 PM Gmoez Castellano RN * Do you have serious [...] AM EDT Specialty [facility]acy [facility] [address] [id number] Pharmacist, [address] [place] [address] refill - glatiramer MWF--lvm 03/29,04/08(wamb) 05/23/2025 1:30 PM EDT Office Visit OPHT Ophthalmology [address] [address] Maulik Toney, DO [address] [place], [place] [id number] optic neuritis and MS 07/20/2025 12:00 PM EDT Office Visit Family Medicine [facility] [address] [place], [place] [id number] Rashard [address] MD [address] [place], [place] [address] physical 09/30/2025 9:00 AM [facility] Hematology/Oncology [address] [place] [address] [place] [address] OCREVUS documented as of this encounter Goals Goal Patient Goal Type Associated Problems Recent Progress Patient-Stated? Author Sleep Efficiency Care Plan Sleep Efficiency Lashawn Ny, PhD documented as of this encounter Visit Diagnoses Diagnosis Atypical mole- Primary Benign neoplasm of skin, site unspecified documented in this encounter Additional Health Concerns Active Problems Noted Date Diagnosed Date Sleep Efficiency 07/08/2024 documented as of this encounter Care Teams Heavy Duty Mechanic Farm Equipment Relationship Specialty Start Date End Date Rashard Lane MD [address] [place] [address] PCP - General Family Medicine 12/09/19 Juan Miguel Caballero, [facility] 05/30/24 Olimpia Turpin, ESCALATOR CONSTRUCTOR.INTAKE COUNSELOR [address] [place] [address] Slate Roofer Helper Family Medicine 10/18/24 Maricruz Valdovinos PA-C [address] [place] [id number] Slate Roofer Helper Internal Medicine 10/18/24 11/11/24 documented as of this encounter
--- OUTSIDE RECORDS SUMMARY | 2025-04-11 15:12 | XMS_ITS | Encounter Summary ---
Author Organization [facility] Address [address] [place] [address] Care Team Providers Care Sponge Diver Name Role Phone Rashard Lane MD Primary Care Provider [phone] Juan Miguel Caballero [facility] Unavailable Unavailable Olimpia Turpin DATASTAGE DEVELOPER.[facility] Unavailable [phone] Maricruz Valdovinos PA-C Unavailable [phone] Source Comments In the event this information is protected by the Federal Confidentiality of Alcohol and Drug AbusePatient Records regulations: The Federal rules restrict any use of the information to criminally investigate or prosecute any alcohol or drug abuse patient.[facility] Encounter Details Date Type Department Care Team (Late st Contact Info) Description 09/02/2024 Get Medical Advice Family Medicine [facility] [address] [place] [address] MD [address] [place] [address] Need 2 letters Social History Tobacco Use Types Packs/Day Years [...] often do you attend chur ch or latter-day services? Never 12/16/2022 Do you belong to [...] Answer Date Recorded PHQ-2 score 0 07/19/2024 [facility] of Occupat ional Health - Occupational Stress [...] money to buy more. Often true 12/16/19 Within the past 12 months, t he [...] in a penitentiary (including now)? No 12/16/2022 [place] Depression Scale Answer Date Recorded [place] Depression Scale Total 1 10/30/2020 The thought of harming myself has occurred to me . Never 10/30/2020 Area Deprivation Index Answer Date Ger rded National Score (1-100), lower number is lower ri sk 93 07/17/2023 State Score (1-10), lower number is lower risk 9 07/17/2023 Data from: https://www.neighborhoodatlas.medicine.trihealth.edu/. Last address used for calculation [address] [...] AM EDT Specialty Pharmacy [facility] [address] [place], [place] [address]34[address] [place] [address] Pharmacist, [facility] [address] [place] [address] refill - glatiramer MWF--lvm 03/29,5(wamb) 05/23/2025 1:30 PM EDT Office Visit OPHT Ophthalmology [address] [address] Maulik Toney DO [address] [place] [address] optic neuritis and MS 07/20/2025 12:00 PM EDT Office Visit Family Medicine [place] [address] [place] [address] MD [address] [place] [address] physical 09/30/2025 9:00 AM [facility] Hematology/Oncology [address] [place] [address] [place] [address] OCREVUS documented as of this encounter Goals Goal Patient Goal Type Associated Problems Recent Progress Patient-Stated? Author Sleep Efficiency Care Plan Sleep Efficiency Lashawn Ny, PhD documented as of this encounter Visit Diagnoses Not on filedocumented in this encounter Additional Health Concerns Active Problems Noted Date Diagnosed Date Sleep Efficiency 07/08/2024 documented as of this encounter Care Teams Sponge Diver Relationship Specialty Start Date End Date Rashard Lane MD [address] [place] [address] PCP - General Family Medicine 12/09/19 Juan Miguel Caballero [facility] 05/30/24 Olimpia Turpin, CYNTHIA.SEPARATING MACHINE OPERATOR [address] [place] [address] Clip On Sunglasses Inspector Family Medicine 10/18/24 Maricruz Valdovinos PA-C [address] [place] [address] Clip On Sunglasses Inspector Internal Medicine 10/18/24 11/11/24 documented as of this encounter
--- OUTSIDE RECORDS SUMMARY | 2025-04-11 15:12 | XMS_ITS | Encounter Summary ---
Author Organization [facility] Address [address] [place] [address] Care Team Providers Care Relay Associate Name Role Phone Janice Lane MD Primary Care Provider Encounter Details Date Type Department Care Team (Late st Contact Info) Description 04/01/2024 Clinisync Result Encounter [facility] External Department Unsolicited John Hu, DO [address] [place] [address] [place] [address] Social History Tobacco Use Types Packs/Day Years [...] NB OPHT [address] [place] [address] Simón Powell, DO [address] [place] [address] 04/17/2026 1:00 PM EDT Office Visit [facility] BCP OB [address] [place] [id number] Jahaira Byers PA [address] [place], [facility]11 documented as of this encounter Procedures Procedure Name Priority Date/Time Associated Diagnosis Comments US OB TRANSVAGINAL 04/01/2024 1: 53 PM EDT documented in this encounter Results * US OB TRANSVAGINAL (04/01/2024 1:53 PM EDT) Anatomical Region Laterality Modality Other 04/01/2024 1:53 PM EDT Narrative 04/01/2024 1:55 PM EDT [address] [address] Ultrasound Report Signed Patient: CAROL ANN ROMAN MR#: [id number] : 1985 Acct:[id number] Age/Sex: 38 / F ADM Date: 04/01/24 Loc: [facility] Attending Dr: John Hu D.O. Ordering Physician: John Hu D.O. Date of Service: 04/01/24 Procedure(s): US OB transvaginal Accession Number(s): [id number] cc: John Hu D.O.; Physician,Non-Staff M.Jong The [address] [address] Patient Name: CAROL ANN ROMAN MRN: [id number] date: 1985 Sex: F Assigned Patient Location: [facility] Current Patient Location: [facility] Accession/Order Number: [id number] Exam Date: 04/01/2024 13:05 Report Date: 04/01/2024 13:53 At the request of: JOHN HU Procedure: US OB transvaginal EXAMINATION: US OB transvaginal HISTORY: MISSED MENSES COMPARISON: No relevant comparison available. FINDINGS: Freeman intrauterine gestation Gestational sac: 4.31 cm, 9 weeks 5 days CRL: 3.29 cm, 10 weeks 1 day Yolk sac: 3.5 mm Heart rate: 169 bpm Cervix: Closed, 4.3 cm The uterus is anteverted, anteflexed. Adjacent to the gestational sac is an area of hypoechogenicity measuring 0.5 x 1.9 x 2.8 cm. The ovaries are normal in appearance Clinical age: 7 weeks 3 days Clinical ELLIOTT: 11/15/2024 Ultrasound age: 10 weeks 1 day Ultrasound ELLIOTT: 10/27/2024 US/US OB transvaginal IMPRESSION: Viable freeman intrauterine gestation measuring 10 weeks 1 day Subchorionic hematoma Electronically authenticated by: JANICE ERWIN Date: 04/01/2024 13:53 Dictated By: Janice Erwin M.D. Signed By: 04/01/24 1355 DD/ 1353 TD/TT: Promotion Producer: Procedure Note Radiology, Radiologist, MD - 04/01/2024 [place] [address] Ultrasound Report Signed Patient: CAROL ANN ROMAN FMR#: [id number] : 1985Acct:[id number] Age/Sex: 38 / FADM Date: 04/01/24 Loc: [facility] Attending Dr: John Hu D.O. Ordering Physician: John Hu D.O. Date of Service: 04/01/24 Procedure(s): US OB transvaginal Accession Number(s): [id number] cc: John Hu D.O.; Physician,Non-Staff [place] The [place] [id number] Patient Name: CAROL ANN ROMAN MRN: [id number] date: 1985 Sex: F Assigned Patient Location: [facility] Current Patient Location: [facility] Accession/Order Number: [id number] Exam Date: 04/01/2024 13:05 Report Date: 04/01/2024 13:53 At the request of: JOHN HU Procedure: US OB transvaginal EXAMINATION: US OB transvaginal HISTORY: MISSED MENSES COMPARISON: No relevant comparison available. FINDINGS: Freeman intrauterine gestation Gestational sac: 4.31 cm, 9 weeks 5 days CRL: 3.29 cm, 10 weeks 1 day Yolk sac: 3.5 mm Heart rate: 169 bpm Cervix: Closed, 4.3 cm The uterus is anteverted, anteflexed. Adjacent to the gestational sac isan area of hypoechogenicity measuring 0.5 x 1.9 x 2.8 cm. The ovaries are normal in appearance Clinical age: 7 weeks 3 days Clinical ELLIOTT: 11/15/2024 Ultrasound age: 10 weeks 1 day Ultrasound ELLIOTT: 10/27/2024 US/US OB transvaginal IMPRESSION: Viable freeman intrauterine gestation measuring 10 weeks 1 day Subchorionic hematoma Electronically authenticated by: JANICE ERWIN Date: 04/01/2024 13:53 Dictated By: Janice Erwin M.D. Signed By:04/01/24 1355 DD/ 1353 TD/TT: Promotion Producer: us John Hu DO [facility] Final Result documented in this encounter Visit Diagnoses Not on filedocumented in this encounter Care Teams Relay Associate Relationship Specialty [place] [address] [place] [address] PCP - General Pediatrics 10/26/23 documented as of this encounter
--- OUTSIDE RECORDS SUMMARY | 2025-04-11 15:12 | XMS_ITS | Encounter Summary ---
Author Organization [facility] Address [address] [place] [address] Care Team Providers Care Slubber Runner Name Role Phone Rashard Lane MD Primary Care Provider [phone] Juan Miguel Caballero [facility] Unavailable Unavailable Olimpia snow FINANCIAL MANAGEMENT CONSULTANT.[facility] Unavailable [phone] Source Comments In the event this information is protected by the Federal Confidentiality of Alcohol and Drug AbusePatient Records regulations: The Federal rules restrict any use of the information to criminally investigate or prosecute any alcohol or drug abuse patient.[facility] Encounter Details Date Type Department Care Team (Late st Contact Info) Description 02/22/2025 Patient Msg Family Medicine [facility] [address] [place], [place] [phone] Rashard Lane MD [address] [place] [address] Appointment Request Social History Tobacco Use Types [...] How often do you attend chur or buddhism services? More than 4 times per year 02/24/2025 Do you belong to any clubs o r organizations such as spiritism groups, unions, fraternal or athletic groups, or [...] Answer Date Recorded PHQ-2 score 2 02/07/2025 [facility] of Occupat ional Health - Occupational Stress [...] in a fdc (including now)? No 12/16/2022 [place] Depression Scale Answer Date Recorded [place] Depression Scale Total 1 10/30/2020 The thought [...] Score Answer Date of Assessment Author 0 02/24/2025 7:40 AM EDT User, Mathew rand * Q1: How often do you have a drink containing alcohol? Answer Date of Assessment Author Never 02/24/2025 7:40 AM EDT User, Mathew rand * Q2: How many drinks containing alcohol do you have on a typical day when you are drinking? Answer Date of Assessment Author Patient does not drink 02/24/2025 7:40 AM EDT er, Estiven * Q3: How often do you have six or more drinks on one occasion? Answer Date of Assessment Author Never 02/24/2025 7:40 AM EDT UserMathew * Are you deaf or do you [...] Entry Date Author No 01/11/2021 4:00 PM EST Kukich, C ynthia, RN documented in this encounter Plan of Treatment Upcoming Encounters Date Type Department Care Team (Latest Contact Info) Description 04/12/2025 11:00 AM EDT Specialty Pharmacy [facility] [address] [place] [address] Pharmacist, [facility] [address] [place] [address] [place] [id number] refill - glatiramer MWF--lvm 03/29,04/08(wamb) 05/23/2025 1:30 PM EDT Office Visit OPHT Ophthalmology [address] [address] Maulik Toney, DO [address] [place], [place] [id number] optic neuritis and MS 07/20/2025 12:00 PM EDT Office Visit Family Medicine [facility] [address] [place] [address] MD [address] [place] [address] physical 09/30/2025 9:00 AM [facility] Hematology/Oncology [address] [place] [address] [place] [address] OCREVUS documented as of this encounter Goals Goal Patient Goal Type Associated Problems Recent Progress Patient-Stated? Author Sleep Efficiency Care Plan Sleep Efficiency Lashawn Ny, PhD documented as of this encounter Visit Diagnoses Not on filedocumented in this encounter Additional Health Concerns Active Problems Noted Date Diagnosed Date Sleep Efficiency 07/08/2024 documented as of this encounter Care Teams Slubber Runner Relationship Specialty Start Date End Date Rashard Lane MD [address] [place] [address] PCP - General Family Medicine 12/09/19 Juan Miguel Caballero, [facility] 05/30/24 Olimpia Turpin, FINANCIAL MANAGEMENT CONSULTANT.FILAMENT WELDER [address] [place] [address] Tool Repairer Family Medicine 10/18/24 documented as of this encounter
--- OUTSIDE RECORDS SUMMARY | 2025-04-11 15:12 | XMS_ITS | Encounter Summary ---
Author Organization [facility] Address [address] [place] [address] Care Team Providers Care Rock Breaker Name Role Phone Rashard Lane MD Primary Care Provider [phone] Encounter Details Date Type Department Care Team (Late st Contact Info) Description 08/17/2024 Clinisync Result Encounter [facility] External Department Unsolicited Clarke Hu, DO [address] [place] [address] [place] [address] Social History Tobacco Use Types Packs/Day Years [...] Visit [facility] NB OPHT [address] [place] [phone] Simón Powell, DO [address] [place] [address] 04/17/2026 1:00 PM EDT Office Visit [facility] BCP OB [address] [facility] [place] [address] Jahaira Byers PA [address] [place] [address] documented as of this encounter Procedures Procedure Name Priority Date/Time Associated Diagnosis Comments US BIOPHYSICAL PROFILE WO NON STRESS TESTING 08/17/2024 2:37 PM EDT documented in this encounter Results * US biophysical profile wo non stress testing (08/17/2024 2:37 PM EDT) Anatomical Region Laterality Modality Body Ultrasound 08/17/2024 2:37 PM EDT Narrative 08/17/2024 3:36 PM EDT [...] care of your patient Follow-up ======== Per [facility] visit to follow, plan for serial [...] EFW (oz) 4 oz EFW by: Hadlock ([id number]) Extended Inspector 3.4 mm Head / Face / Neck [...] care of your patient Follow-up ======== Per [facility] visit to follow, plan for serial [...] EFW (oz) 4 oz EFW by: Hadlock ([id number]) Extended Inspector 3.4 mm Head / Face / Neck [...] 74.6 40% 276.2 24%259.2 51% 56.3 28% 342821% Impression ========= -Appropriate growth and AFV -No malformations were identified on a limited survey -BPP Score is 8/ Thank you allowing us to participate in the care of your patient Follow-up ======== Per [facility] visit to follow, plan for serial [...] EFW (oz) 4 oz EFW by: Hadlock ([id number]) Extended Inspector 3.4 mm Head / Face / Neck [...] 74.6 40% 276.2 24%259.2 51% 56.3 28% 355[address]% Impression ========= -Appropriate growth and AFV -No [...] EFW (oz) 4 oz EFW by: Hadlock ([id number]) Extended Inspector 3.4 mm Head / Face / Neck [...] on filedocumented in this encounter Care Teams Rock Breaker Relationship Specialty [place] [address] [place] [address] PCP - General Pediatrics 10/26/23 documented as of this encounter
--- OUTSIDE RECORDS SUMMARY | 2025-04-11 15:13 | XMS_ITS | Encounter Summary ---
Author Organization [facility] Address [address] [place] [address] Care Team Providers Care Control Valve Mechanic Name Role Phone Rashard Lane MD Primary Care Provider [phone] Encounter Details Date Type Department Care Team (Late Contact Info) Description 04/11/2025 Bamboo flowsheet [facility] BCP OB [address] [facility] [place] [address] Jahaira Byers PA [address] [facility] [address] [place], [place] [id number] Social History Tobacco Use Types Packs/Day Years [...] NB OPHT [address] [place] [address] Simón Powell, [address] [place] [address] 04/17/2026 1:00 PM EDT Office Visit [facility] BCP OB [address] [facility] [place] [place] [address] Jahaira Byers PA [address] [facility] [address] [place], [facility] documented as of this encounter Visit Diagnoses Not on filedocumented in this encounter Care Teams Control Valve Mechanic Relationship Specialty [place] [address] [place] [address] PCP - General Pediatrics 10/26/23 documented as of this encounter
--- OUTSIDE RECORDS SUMMARY | 2025-04-11 15:13 | XMS_ITS | Encounter Summary ---
Author Organization [facility] Address [address] [place] [address] Care Team Providers Care Coal Bagger Name Role Phone Rashard Lane MD Primary Care Provider [phone] Juan Miguel Caballero [facility] Unavailable Unavailable Olimpia Turpin C PROGRAMMER.PATROL LADY Unavailable Maricruz Valdovinos PA-C Unavailable [phone] Source Comments In the event this information is protected by the Federal Confidentiality of Alcohol and Drug AbusePatient Records regulations: The Federal rules restrict any use of the information to criminally investigate or prosecute any alcohol or drug abuse patient.[facility] Encounter Details Date Type Department Care Team (Late st Contact Info) Description 09/05/2020 Get Medical Advice Maternal Medicine [address] [facility] [address] [place] [address] [place] [address] [place] [address] RE: Non-Urgent Medical Question Social History Tobacco Use Types Packs/Day Years Used Date Smoking Tobacco: Never Smokeless Tobacco: Never Alcohol Use Standard Drinks/Week Comments Not Currently 0 (1 standard drink = 0.6 oz pur e alcohol) occas PHQ-2 Answer Date Recorded PHQ-2 score 3 01/03/2020 Comments Yes Sex and Gender Information Value [...] have Coronavirus / COVID-19? No / Unsure 09/04/2020 8:58 AM EDT documented as of this encounter Plan of Treatment Upcoming Encounters Date Type Department Care Team (Latest Contact Info) Description 04/12/2025 11:00 AM EDT Specialty Pharmacy [facility] [address] [place], [place] [address] [place], [place] [id number] Pharmacist, [facility] [address] [place] [address] [place] [address] refill - glatiramer MWF--lvm 03/29,04/08(wamb) 05/23/2025 1:30 PM EDT Office Visit OPHT Ophthalmology [address] [address] Maulik Toney, DO [address] [place], [place] [address] optic neuritis and MS 07/20/2025 12:00 PM EDT Office Visit Family Medicine [facility] [address] [place] [address] MD [address] [place] [address] physical 09/30/2025 9:00 AM EST [facility] Hematology/Oncology [address] [place] [address] [place] [address] OCREVUS documented as of this encounter Visit Diagnoses Not on filedocumented in this encounter Additional Health Concerns Infection Onset Date Last Indicated Resolved Time COVID-19 Rule-Out 01/08/2021 01/08/2021 01/08/2021 6:41 PM EST COVID-19 Rule-Out 02/12/2023 02/12/2023 02/13/2023 1:49 AM EDT COVID-19 Confirmed 02/12/2023 02/12/2023 8:51 PM EDT documented as of this encounter Care Teams Coal Bagger Relationship Specialty Start Date End Date Rashard Lane MD [address] [place] [address] PCP - General Family Medicine 12/09/19 Juan Miguel Caballero [facility] 05/30/24 Olimpia Turpin, C PROGRAMMER.PATROL LADY [address] [place] [address] Strawhat Sizer Family Medicine 10/18/24 Maricruz Valdovinos PA-C [address] [place] [address] Strawhat Sizer Internal Medicine 10/18/24 11/11/24 documented as of this encounter
--- OUTSIDE RECORDS SUMMARY | 2025-04-11 15:13 | XMS_ITS | Encounter Summary ---
Author Organization [facility] Address [address] [place] [address] Care Team Providers Care Crimping Machine Operator Name Role Phone Janice Lane MD Primary Care Provider [phone] Encounter Details Date Type Department Care Team (Late st Contact Info) Description 10/13/2024 Clinisync Result Encounter [facility]S External Department Unsolicited John Hu, DO [address] [place] [address] [place] [address] Social History Tobacco Use Types Packs/Day Years [...] NB OPHT [address] [place] [id number] Simón Powell, DO [address] [place] [address] 04/17/2026 1:00 PM EDT Office Visit [facility] BCP OB [address] [place] [address] Jahaira Byers PA [address] [facility] [place], [place] [address] documented as of this encounter Procedures Procedure Name Priority Date/Time Associated Diagnosis Comments US OB BPP W NON-STRESS 10/13/2024 7:55 AM EST documented in this encounter Results * US OB BPP W NON-STRESS (10/13/2024 7:55 AM EST) Anatomical Region Laterality Modality Other 10/13/2024 7:55 AM EST Narrative 10/13/2024 7:58 AM EST The [address] [address] Ultrasound Report Signed Patient: CAROL ANN ROMAN MR#: [id number] : 1985 Acct:[id number] Age/Sex: 39 / F ADM Date: 10/12/24 Loc: FBCO Attending Dr: John Hu D.O. Ordering Physician: John Hu D.O. Date of Service: 10/12/24 Procedure(s): US OB BPP w non-stress Accession Number(s): [id number] cc: John Hu D.O.; Physician,Non-Staff M.Jong The [address] [address] Patient Name: CAROL ANN ROMAN MRN: [id number] date: 1985 Sex: F Assigned Patient Location: [facility] Current Patient Location: Accession/Order Number: [id number] Exam Date: 10/12/2024 16:10 Report Date: 10/13/2024 07:55 At the request of: JOHN HU Procedure: [...] HEART RATE: 145.16 bpm AMNIOTIC FLUID VOLUME: 9.3 cm GESTATIONAL AGE: 89 Day US/US OB BPP w non-stress IMPRESSION: Total biophysical profile score: 8 Electronically authenticated by: JANICE ERWIN Date: 10/13/2024 07:55 Dictated By: Janice Erwin M.D. Signed By: 10/13/24 0758 DD/ 0755 TD/TT: Metal Welder: Procedure Note Radiology, Radiologist, MD - 10/13/2024 [place] [address] Ultrasound Report Signed Patient: CAROL ANN ROMAN FMR#: [id number] : 1985Acct:[id number] Age/Sex: 39 / FADM Date: 10/12/24 Loc: FBCO Attending Dr: John Hu D.O. Ordering Physician: John Hu D.O. Date of Service: 10/12/24 Procedure(s): US OB BPP w non-stress Accession Number(s): [id number] cc: John Hu D.O.; Physician,Non-Staff [place] The [address] [address] Patient Name: CAROL ANN ROMAN MRN: [id number] date: 1985 Sex: F Assigned Patient Location: [facility] Current Patient Location: Accession/Order Number: [id number] Exam Date: 10/12/2024 16:10 Report Date: 10/13/2024 07:55 At the request of: JOHN HU Procedure: [...] HEART RATE: 145.16 bpm AMNIOTIC FLUID VOLUME: 9.3 cm GESTATIONAL AGE: 89 Day US/US OB BPP w non-stress IMPRESSION: Total biophysical profile score: 8 Electronically authenticated by: JANICE ERWIN Date: 10/13/2024 07:55 Dictated By: Janice Erwin M.D. Signed By:10/13/24 0758 DD/ 0755 TD/TT: Metal Welder: us John Hu DO [facility] Final Result documented in this encounter Visit Diagnoses Not on filedocumented in this encounter Care Teams Crimping Machine Operator Relationship Specialty [place] [address] [place] [address] PCP - General Pediatrics 10/26/23 documented as of this encounter
--- OUTSIDE RECORDS SUMMARY | 2025-04-11 15:13 | XMS_ITS | Encounter Summary ---
Author Organization [facility] Address [address] [place] [address] Care Team Providers Care Window Treatment Installer Name Role Phone Rashard Lane MD Primary Care Provider [phone] Juan Miguel Caballero [facility] Unavailable Unavailable Olimpia Turpin MANAGER OF PHOTOGRAPHY.[facility] Unavailable Maricruz Valdovinos PA-C Unavailable [phone] Source Comments In the event this information is protected by the Federal Confidentiality of Alcohol and Drug AbusePatient Records regulations: The Federal rules restrict any use of the information to criminally investigate or prosecute any alcohol or drug abuse patient.[facility] Encounter Details Date Type Department Care Team (Late st Contact Info) Description 07/29/2023 Get Medical Advice Family Medicine [facility] [address] [place] [address] MD [address] [place] [address] Schedule for corporate legal intern Social History Tobacco Use Types Packs/Day Years [...] often do you attend chur ch or restorationist services? Never 12/16/2022 Do you belong to any clubs o r organizations such as evangelical groups, unions, fraternal or athletic groups, or [...] PHQ-2 Answer Date Recorded PHQ-2 score 0 07/17/2023 [facility] of Occupat [...] in a fpc (including now)? No 12/16/2022 [place] Depression Scale Answer Date Recorded [place] Depression Scale Total 1 10/30/2020 The thought of harming myself has occurred to me . Never 10/30/2020 Area Deprivation Index Answer Date Ger rded National Score (1-100), lower number is lower ri sk 93 07/17/2023 State Score (1-10), lower number is lower risk 9 07/17/2023 Data from: https://www.neighborhoodatlas.medicine.[facility].edu/. Last address used for calculation [address] [...] EDT Specialty Pharmacy [facility] [address] [place], [place] [address] [place] [address] Pharmacist, Specialtygroup3 [address] [place] [address] refill - glatiramer MWF--lvm 03/29,04/08(wamb) 05/23/2025 1:30 PM EDT Office Visit OPHT Ophthalmology [address] [address] Maulik Toney DO [address] [place] [address] optic neuritis and MS 07/20/2025 12:00 PM EDT Office Visit Family Medicine [address] [place] [address] MD [address] [place] [address] physical 09/30/2025 9:00 AM [facility] Hematology/Oncology [address] [place] [address] [place] [address] OCREVUS documented as of this encounter Visit Diagnoses Diagnosis Nail abnormality- Primary Unspecified disease of nail documented in this encounter Care Teams Window Treatment Installer Relationship Specialty Start Date End Date Rashard Lane MD [address] [place] [address] PCP - General Family Medicine 12/09/19 Juan Miguel Caballero [facility] Pharmacy 05/30/24 Olimpia Turpin, CYNTHIA.[facility] [address] [place] [address] Lift Slab Operator Family Medicine 10/18/24 Maricruz Valdovinos PA-C [address] [place] [address] Lift Slab Operator Internal Medicine 10/18/24 11/11/24 documented as of this encounter
--- OUTSIDE RECORDS SUMMARY | 2025-04-11 15:13 | XMS_ITS | Encounter Summary ---
Author Organization [facility] Address [address] [place] [address] Care Team Providers Care Latin American Studies Director Name Role Phone Rashard Lane MD Primary Care Provider [phone] Juan Miguel Caballero [facility] Unavailable Unavailable Olimpia Turpin APPAREL DESIGNER.ROTARY CUTTER Unavailable Maricruz Valdovinos PA-C Unavailable [phone] Source Comments In the event this information is protected by the Federal Confidentiality of Alcohol and Drug AbusePatient Records regulations: The Federal rules restrict any use of the information to criminally investigate or prosecute any alcohol or drug abuse patient.[facility] Encounter Details Date Type Department Care Team (Late st Contact Info) Description 08/21/2023 Patient Msg Neurology [facility] [place] [address] Provider, [facility] Scheduling Your Actigraphy Watch Order Social History Tobacco Use Types Packs/Day Years [...] any clubs o r organizations such as bahai groups, unions, fraternal or athletic groups, or [...] Answer Date Recorded PHQ-2 score 0 08/11/2023 [facility] of Occupat ional Health - Occupational [...] place to sleep or slept in a group home (including now)? No 12/16/2022 [place] Depression Scale Answer Date Recorded [place] Depression Scale Total 1 10/30/2020 The thought of harming myself has occurred to me . Never 10/30/2020 Area Deprivation Index Answer Date Ger rded National Score (1-100), lower number is lower ri sk 93 07/17/2023 State Score (1-10), lower number is lower risk 9 07/17/2023 Data from: https://www.neighborhoodatlas.medicine.[facility].edu/. Last address used for calculation [...] AM EDT Specialty Pharmacy [facility] [address] [place] [address] [address] [place] [address] Pharmacist, Specialtygroup3 [address] [place] [address] refill - glatiramer MWF--lvm 03/29,04/08([facility]) 05/23/2025 1:30 PM EDT Office Visit OPHT Ophthalmology [address] [address] Maulik Toney DO [address] [place], [place] [address] optic neuritis and MS 07/20/2025 12:00 PM EDT Office Visit Family Medicine [facility] [address] [facility] [place] [address] MD [address] [facility] [place] [address] physical 09/30/2025 9:00 AM [facility] Hematology/Oncology [address] [place] [address] [place] [address] OCREVUS documented as of this encounter Visit Diagnoses Not on filedocumented in this encounter Care Teams Latin American Studies Director Relationship Specialty Start Date End Date Rashard Lane MD [address] [place] [address] PCP - General Family Medicine 12/09/19 Juan Miguel Caballero [facility] Pharmacy 05/30/24 Olimpia Turpin, APPAREL DESIGNER.[facility] [address] [place] [address] [employer] Family Medicine 10/18/24 Maricruz Valdovinos PA-C [address] [place] [address] [employer] Internal Medicine 10/18/24 11/11/24 documented as of this encounter
--- OUTSIDE RECORDS SUMMARY | 2025-04-11 15:13 | XMS_ITS | Encounter Summary ---
Author Organization [facility] Address [facility] [place] [address] Care Team Providers Care Auto Locator Name Role Phone Rashard Lane MD Primary Care Provider [phone] Juan Miguel Caballero [facility] Unavailable Unavailable Olimpia Turpin BLANKET WEAVER.[facility] Unavailable [phone] Maricruz Valdovinos PA-C Unavailable [phone] Source Comments In the event this information is protected by the Federal Confidentiality of Alcohol and Drug AbusePatient Records regulations: The Federal rules restrict any use of the information to criminally investigate or prosecute any alcohol or drug abuse patient.[facility] Encounter Details Date Type Department Care Team (Late st Contact Info) Description 03/28/2023 Get Medical Advice [facility] [address] [place] [address] Nesha Williamson MD [address] [place] [address] Do you need anything else for scheduling out of town infusion Social History Tobacco Use Types Packs/Day [...] often do you attend chur ch or yarsani services? Never 12/16/2022 Do you belong to [...] Answer Date Recorded PHQ-2 score 0 02/11/2023 [facility] of Occupat ional Health - Occupational Stress [...] in a assisted (including now)? No 12/16/2022 Noble Depression Scale Answer Date Recorded Noble Depression Scale Total 1 10/30/2020 The thought of harming myself has occurred to me . Never 10/30/2020 Area Deprivation Index Answer Date Ger rded National Score (1-100), lower number is lower ri sk 89 11/27/2022 State Score (1-10), lower number is lower risk N ot on file 11/27/2022 Data from: https://www.neighborhoodatlas.medicine.[facility].edu/. Last address used for calculation [address] 11/27/2022 Education Answer Date Recorded What is [...] EDT Specialty Pharmacy [facility] [address] [place], [place] [address]54[address] [place] [address] Pharmacist, [facility]ty[facility]3 [address] [place] [address] refill - glatiramer MWF--lvm 03/29,04/08(wamb) 05/23/2025 1:30 PM EDT Office Visit OPHT Ophthalmology [address] [id number] Maulik Toney DO [address] [place] [address] optic neuritis and MS 07/20/2025 12:00 PM EDT Office Visit Family Medicine [address] MD [address] [place] [address] physical 09/30/2025 9:00 AM [facility] Hematology/Oncology [address] [place] [address] [place] [address] OCREVUS documented as of this encounter Visit Diagnoses Not on filedocumented in this encounter Care Teams Auto Locator Relationship Specialty Start Date End Date Rashard Lane MD [address] [place] [address] PCP - General Family Medicine 12/09/19 Juan Miguel Caballero [facility] 05/30/24 Olimpia Turpin, BLANKET WEAVER.[facility] [address] [place] [address] Full Service Vending Driver Family Medicine 10/18/24 Maricruz Valdovinos PA-C [address] [place] [address] Full Service Vending Driver Internal Medicine 10/18/24 11/11/24 documented as of this encounter
--- OUTSIDE RECORDS SUMMARY | 2025-04-11 15:13 | XMS_ITS | Encounter Summary ---
Author Organization [facility] Address [address] [place] [address] Care Team Providers Care Repairer Auto Clocks Name Role Phone Rashard Lane MD Primary Care Provider [phone] Encounter Details Date Type Department Care Team (Late st Contact Info) Description 10/12/2024 Clinisync Result Encounter [facility]S External Department Unsolicited Clarke Hu, DO [address] [place] [address] [place] [address] Social History Tobacco Use Types Packs/Day Years [...] NB OPHT [address] [place] [address] Simón Powell, DO [address] [place] [address] 04/17/2026 1:00 PM EDT Office Visit [facility] BCP OB [address] [facility] [place] [address] Jahaira Byers PA [address] [place] [address] documented as of this encounter Procedures Procedure Name Priority Date/Time Associated Diagnosis Comments US OB LIMITED 1+ FETUSES 10/12/2024 3:15 PM EST documented in this encounter Results * US OB limited 1+ fetuses (10/12/2024 3:15 PM EST) Anatomical Region Laterality Modality Body Ultrasound 10/12/2024 3:15 PM EST Narrative 10/12/2024 3:55 PM EST Interpreted [...] no critical findings today to indicate delivery. [facility] visit prior to US today. Scheduled [...] 74.6 40% 276.2 24%259.2 51% 56.3 28% 503135% 09/17/2024 34w 2d 87.5 78% 311.8 29%288.9 17% 66.8 43% 437437% 10/05/2024 36w 6d 89.7 49% 326.4 27%304.3 6% 70.2 26% 413664% Impression ========= Patient presents at 37w6d for evaluation of well being in apregnancy with the following complications: multiple sclerosis, history ofLEEP, AMA, FGR by AC diagnosed at 34 weeks. - Normal amniotic fluid volume - BPP /8 -Normal doppler indices with an RI at the 62% percentile Reassuring status based on today's assessment. There are no criticalfindings today to indicate delivery. M visit prior to US today. Scheduled for [...] 74.6 40% 276.2 24%259.2 51% 56.3 28% 984204% 09/17/2024 34w 2d 87.5 78% 311.8 29%288.9 17% 66.8 43% 859359% 10/05/2024 36w 6d 89.7 49% 326.4 27%304.3 6% 70.2 26% 204150% Impression ========= Patient presents at 37w6d for [...] Amniotic fluid volume 8 Biophysical profile score Amniotic Fluid Assessment Amount [...] 74.6 40% 276.2 24%259.2 51% 56.3 28% 132558% 09/17/2024 34w 2d 87.5 78% 311.8 29%288.9 17% 66.8 43% 921507% 10/05/2024 36w 6d 89.7 49% 326.4 27%304.3 6% 70.2 26% 017689% Impression ========= Patient presents at 37w6d for [...] Transabdominal ultrasound examination. View: Sufficient us Clarke Mayte DO IMG OB US PROCEDURES Final Resul t documented in this encounter Visit Diagnoses Not on filedocumented in this encounter Care Teams Repairer Auto Clocks Relationship Specialty [place] [address] [place] [address] PCP - General Pediatrics 10/26/23 documented as of this encounter
--- OUTSIDE RECORDS SUMMARY | 2025-04-11 15:13 | XMS_ITS | Encounter Summary ---
Author Organization [facility] Address [facility] [place] [address] Care Team Providers Care Solution Analyst Name Role Phone Rashard Lane MD Primary Care Provider [phone] Juan Miguel Caballero [facility] Unavailable Unavailable Olimpia Turpin MAGNETIC PROSPECTING OPERATOR.SUPERVISOR [employer] RO[employer] Unavailable Maricruz Valdovinos PA-C Unavailable [phone] Source Comments In the event this information is protected by the Federal Confidentiality of Alcohol and Drug AbusePatient Records regulations: The Federal rules restrict any use of the information to criminally investigate or prosecute any alcohol or drug abuse patient.[facility] Encounter Details Date Type Department Care Team (Late st Contact Info) Description 03/25/2023 [facility] [address] [place] [address] Nesha Williamson MD [address] [place] [address] Infusion appt. change to different state Social History Tobacco Use Types Packs/Day Years [...] any clubs o r organizations such as shinto groups, unions, fraternal or athletic groups, or [...] Answer Date Recorded PHQ-2 score 0 02/11/2023 [facility] of Occupat ional Health - Occupational [...] in a half-way (including now)? No 12/16/2022 [place] Depression Scale Answer Date Recorded [place] Depression Scale Total 1 10/30/2020 The thought of harming myself has occurred to me . Never 10/30/2020 Area Deprivation Index Answer Date Ger rded National Score (1-100), lower number is lower ri sk 89 11/27/2022 State Score (1-10), lower number is lower risk N ot on file 11/27/2022 Data from: https://www.neighborhoodatlas.medicine.[facility].edu/. Last address used for calculation [address] 11/27/2022 Education Answer Date Recorded [...] No 01/11/2021 4:00 PM Reny Castellano RN * Are you blind or [...] AM EDT Specialty Pharmacy [facility] [address] [place], [place] [address] [place] [address] Pharmacist, Specialtygroup[facility] [address] [place] [address] refill - glatiramer MWF--lvm 03/29,04/08(wa) 05/23/2025 1:30 PM EDT Office Visit OPHT Ophthalmology [address] [id number] Maulik Toney DO [address] [place] [address] optic neuritis and MS 07/20/2025 12:00 PM EDT Office Visit Family Medicine [address] MD [address] [place] [address] physical 09/30/2025 9:00 AM [facility] Hematology/Oncology [address] [place] [address] [place] [address] OCREVUS documented as of this encounter Visit Diagnoses Not on filedocumented in this encounter Care Teams Solution Analyst Relationship Specialty Start Date End Date Rashard Lane MD [address] [place] [address] PCP - General Family Medicine 12/09/19 Juan Miguel Caballero [facility] Pharmacy 05/30/24 Olimpia Turpin, MAGNETIC PROSPECTING OPERATOR.[facility] [address] [place] [address] Hip Hop Performers Family Medicine 10/18/24 Maricruz Valdovinos PA-C [address] [place] [address] Hip Hop Performers Internal Medicine 10/18/24 11/11/24 documented as of this encounter
--- OUTSIDE RECORDS SUMMARY | 2025-04-11 15:13 | XMS_ITS | Clinical Summary ---
Author Organization [facility] Address [address] [place] [address] Care Team Providers Care Snack Bar Cashier Name Role Phone Unknown, Provider Primary Care Provider Unavaila ble Social History Tobacco Use Types Packs/Day Years Used Date Smoking Tobacco: Never Assessed Comments Unknown Sex and Gender Information Value Date Recorded Sex Assigned at Not on file Legal Sex Female 3:58 PM EST Gender Identity Not on file Sexual Orientation Not on file Plan of Treatment Health Maintenance Due Date Last Done Comments MMR Vaccine (1 of 1 - Standa rd series) 1986 DTaP/Tdap/Td Vaccine (1 - Tdap) 1992 Varicella Vaccine (1 of 2 - 13+ 2-dose series) 1998 Hepatitis B Vaccine (1 of 3 - 19+ 3-dose series) 2004 COVID-19 Vaccine (2023-2 5 season) 2024 Influenza Vaccine (#1) 2024 HIB Vaccine Aged Out No longer eligi ble based on patient's age to complete this topic HPV Vaccine Aged Out No longer eligi ble based on patient's age to complete this topic Hepatitis A Vaccine Aged Out No longe r eligible based on patient's age to complete this topic IPV Vaccine Aged Out No longer eligi ble based on patient's age to complete this topic Meningococcal ACWY Vaccine Aged Out N o longer eligible based on patient's age to complete this topic Meningococcal B Vaccine Aged Out No l onger eligible based on patient's age to complete this topic Pneumococcal Vaccine Aged Out No long er eligible based on patient's age to complete this topic RSV, Nirsevimab Immunization Aged Out No longer eligible based on patient's age to complete this topic Rotavirus Vaccine Aged Out No longer eligible based on patient's age to complete this topic Insurance MEDIC[place] Care Teams Snack Bar Cashier Relationship Specialty Start Date End Date Unknown, Provider PCP - General 09/29/20
--- OUTSIDE RECORDS SUMMARY | 2025-04-11 15:13 | XMS_ITS | Encounter Summary ---
Author Organization [facility] Address [address] [place] [address] Care Team Providers Care Tool Liaison Name Role Phone Rashard Lane MD Primary Care Provider [phone] Juan Miguel Caballero [facility] Unavailable Unavailable Olimpia Turpin BREAK AND LOAD OPERATOR.INSPECTOR BALANCE WHEEL MOTION Unavailable [phone] Maricruz Valdovinos PA-C Unavailable [phone] Source Comments In the event this information is protected by the Federal Confidentiality of Alcohol and Drug AbusePatient Records regulations: The Federal rules restrict any use of the information to criminally investigate or prosecute any alcohol or drug abuse patient.[facility] Encounter Details Date Type Department Care Team (Late st Contact Info) Description 07/19/2022 [place] [address] Provider, [facility] MRI Screening Social History Tobacco Use Types Packs/Day Years Used Date Smoking Tobacco: Never Smokeless Tobacco: Never Alcohol Use Standard Drinks/Week Comments Not Currently 0 (1 standard drink = 0.6 oz pur e alcohol) occas PHQ-2 Answer Date Recorded PHQ-2 score 0 02/08/2021 [place] Depression Scale Answer Date Recorded [place] Depression Scale Total 1 10/30/2020 The thought of harming myself has occurred to me . Never 10/30/2020 Area Deprivation Index Answer Date Ger rded National Score (1-100), lower number is lower ri sk 59 03/29/2022 State Score (1-10), lower number is lower risk N ot on file 03/29/2022 Data from: https://www.neighborhoodatlas.medicine.[facility]/. Last address used for calculation [address] 03/29/2022 Education Answer Date Recorded [...] suspected to have Coronavirus/COVID-19? No / Unsure 07/04/2022 4:22 PM EDT documented as of this encounter Functional [...] Pharmacy [facility] [address] [place] [address] Pharmacist, Specialtygroup3 [address] [place] [address] [place] [address] refill - glatiramer MWF--lvm 03/29,04/08(wamb) 05/23/2025 1:30 PM EDT Office Visit OPHT Ophthalmology [address] [address] Maulik Toney, DO [address] [place] [address] optic neuritis and MS 07/20/2025 12:00 PM EDT Office Visit Family Medicine [facility] [address] [place] [address] MD [address] [place] [address] physical 09/30/2025 9:00 AM [facility] Hematology/Oncology [address] [place] [address] [place] [address] OCREVUS documented as of this encounter Visit Diagnoses Not on filedocumented in this encounter Additional Health Concerns Infection Onset Date Last Indicated Resolved Time COVID-19 Rule-Out 02/12/2023 02/12/2023 02/13/2023 1:49 AM EDT COVID-19 Confirmed 02/12/2023 02/12/2023 8:51 PM EDT documented as of this encounter Care Teams Tool Liaison Relationship Specialty Start Date End Date Rashard Lane MD [address] [place] [address] PCP - General Family Medicine 12/09/19 Juan Miguel Caballero, [facility] Pharmacy 05/30/24 Olimpia Turpin, [facility] [address] [place] [address] Surgical Rn Family Medicine 10/18/24 Maricruz Valdovinos PA-C [address] [place] [address] Surgical Rn Internal Medicine 10/18/24 11/11/24 documented as of this encounter
--- OUTSIDE RECORDS SUMMARY | 2025-04-11 15:13 | XMS_ITS | Patient Health Record ---
Author Organization [facility] es Address [address] [place] [address] Care Team Providers Care Finger Buffs Assembler Name Role Phone AnastasiaSerjio eliseie Primary Care Provider Romelia Yuan Unavailable [phone] Guillermo Jenkins Unavailable [phone] Reason For Referral No Information Encounters Encounter Location Date Provider Diagnosis [facility] [address] [facility] [place] [address] 01/07/2025 Melina Lowe [place] [address] [place] [address] 01/10/2025 Melina Lowe [facility] [address] [facility] [place] [address] 01/07/2025 Melina Lowe Plan Of Treatment Next Appt Details Provider Name:Guillermo Tyson er, 04/14/2025 03:00:00 PM, [address], [place], [address], Insurance Providers Payer Name Payer Address Payer Phone Subscriber Number Group Number Insured Name Patient Relationship to Insured Coverage Start Date Coverage End Date [facility] [address] [place] [address] [id number] [id number] CAROL ANN ROM[facility] Self - patient is the insured
--- OUTSIDE RECORDS SUMMARY | 2025-04-11 15:13 | XMS_ITS | Encounter Summary ---
Author Organization [facility] Address [address] [place] [address] Care Team Providers Care Pressing Machine Operator Name Role Phone Rashard Lane MD Primary Care Provider [phone] Juan Miguel Caballero [facility] Unavailable Unavailable Olimpia Turpin REAL ESTATE ASSOCIATE.PATTERNMAKER SAMPLE Unavailable [phone] Maricruz Valdovinos PA-C Unavailable [phone] Source Comments In the event this information is protected by the Federal Confidentiality of Alcohol and Drug AbusePatient Records regulations: The Federal rules restrict any use of the information to criminally investigate or prosecute any alcohol or drug abuse patient.[facility] Encounter Details Date Type Department Care Team (Late st Contact Info) Description 06/28/[address] [facility] Physical Therapy [address] [place] [address] Anya Farias, PT [address] [place] [address] [id number] Closer therapy Social History Tobacco Use Types Packs/Day Years Used Date Smoking Tobacco: Never Smokeless Tobacco: Never Alcohol Use Standard Drinks/Week Comments Not Currently 0 (1 standard drink = 0.6 oz pur e alcohol) occas PHQ-2 Answer Date Recorded PHQ-2 score 0 02/08/2021 [place] Depression Scale Answer Date Recorded [place] Depression Scale Total 1 10/30/2020 The thought of harming myself has occurred to me . Never 10/30/2020 Area Deprivation Index Answer Date Ger rded National Score (1-100), lower number is lower ri sk 59 03/29/2022 State Score (1-10), lower number is lower risk N ot on file 03/29/2022 Data from: https://www.neighborhoodatlas.medicine.[facility].edu/. Last address used for calculation [address] [facility] [address] 03/29/2022 Education Answer Date Recorded What [...] suspected to have Coronavirus/COVID-19? No / Unsure 05/30/2022 11:48 AM EDT documented as of this encounter [...] AM EDT Specialty Pharmacy [facility] [facility] [address] [place] [address] Pharmacist, Specialtygroup3 [address] [place] [address] refill - glatiramer MWF--lvm 03/29,04/08(wamb) 05/23/2025 1:30 PM EDT Office Visit OPHT Ophthalmology [address] [address] Maulik Toney DO [address] [place] [address] optic neuritis and MS 07/20/2025 12:00 PM EDT Office Visit Family Medicine [facility] [address] [place] [address] MD [address] [place] [address] physical 09/30/2025 9:00 AM [facility] Hematology/Oncology [address] [place] [address] [place] [address] OCREVUS documented as of this encounter Visit Diagnoses Not on filedocumented in this encounter Additional Health Concerns Infection Onset Date Last Indicated Resolved Time COVID-19 Rule-Out 02/12/2023 02/12/2023 02/13/2023 1:49 AM EDT COVID-19 Confirmed 02/12/2023 02/12/2023 8:51 PM EDT documented as of this encounter Care Teams Pressing Machine Operator Relationship Specialty Start Date End Date Rashard Lane MD [address] [place] [address] PCP - General Family Medicine 12/09/19 Juan Miguel Caballero [facility] 05/30/24 Olimpia Turpin, REAL ESTATE ASSOCIATE.[facility] [address] [place] [address] Associate Pastor Family Medicine 10/18/24 Maricruz Valdovinos PA-C [address] [place] [address] Associate Pastor Internal Medicine 10/18/24 11/11/24 documented as of this encounter
--- OUTSIDE RECORDS SUMMARY | 2025-04-11 15:13 | XMS_ITS | Encounter Summary ---
Author Organization [facility] Address [address] [place] [address] Care Team Providers Care Manager Dental Name Role Phone Rashard Lane MD Primary Care Provider [phone] Juan Miguel Caballero [facility] Unavailable Unavailable Olimpia Turpin AFTERSCHOOL.OVEN PRESS TENDER Unavailable Maricruz Valdovinos PA-C Unavailable [phone] Source Comments In the event this information is protected by the Federal Confidentiality of Alcohol and Drug AbusePatient Records regulations: The Federal rules restrict any use of the information to criminally investigate or prosecute any alcohol or drug abuse patient.[facility] Encounter Details Date Type Department Care Team (Late st Contact Info) Description 07/21/2022 [place] [address] Provider, [facility] MRI Screening Questionnaire Completion Required Social History Tobacco Use Types Packs/Day Years Used Date Smoking Tobacco: Never Smokeless Tobacco: Never Alcohol Use Standard Drinks/Week Comments Not Currently 0 (1 standard drink = 0.6 oz pur e alcohol) occas PHQ-2 Answer Date Recorded PHQ-2 score 0 02/08/2021 [place] Depression Scale Answer Date Recorded [place] Depression Scale Total 1 10/30/2020 The thought of harming myself has occurred to me . Never 10/30/2020 Area Deprivation Index Answer Date Ger rded National Score (1-100), lower number is lower ri sk 59 03/29/2022 State Score (1-10), lower number is lower risk N ot on file 03/29/2022 Data from: https://www.neighborhoodatlas.medicine.[facility].edu/. Last address used for calculation [address] 03/29/2022 Education Answer Date Recorded [...] AM EDT Specialty Pharmacy [facility] [address] [place] [address] Drive [address] [place] [address] Pharmacist, Specialtygroup3 [address] [place] [address] [place] [address] refill - glatiramer MWF--lvm 03/29,04/08(wamb) 05/23/2025 1:30 PM EDT Office Visit OPHT Ophthalmology [address] [address] Maulik Toney, DO [address] [place] [address] optic neuritis and MS 07/20/2025 12:00 PM EDT Office Visit Family Medicine [facility] [address] [place] [address] MD [address] [place] [address] physical 09/30/2025 9:00 AM [facility] Hematology/Oncology [address] [place] [address] [place] [address] OCREVUS documented as of this encounter Visit Diagnoses Not on filedocumented in this encounter Additional Health Concerns Infection Onset Date Last Indicated Resolved Time COVID-19 Rule-Out 02/12/2023 02/12/2023 02/13/2023 1:49 AM EDT COVID-19 Confirmed 02/12/2023 02/12/2023 8:51 PM EDT documented as of this encounter Care Teams Manager Dental Relationship Specialty Start Date End Date Rashard Lane MD [address] [place] [address] PCP - General Family Medicine 12/09/19 Juan Miguel Caballero [facility] 05/30/24 Olimpia Turpin APRN.[facility] [address] [place] [address] Real Estate Leasing Manager Family Medicine 10/18/24 Maricruz Valdovinos PA-C [address] [place] [address] Real Estate Leasing Manager Internal Medicine 10/18/24 11/11/24 documented as of this encounter
--- OUTSIDE RECORDS SUMMARY | 2025-04-11 15:13 | XMS_ITS | Clinical Summary ---
Author Organization [facility] Address [address] [place] [address] Care Team Providers Care Stonecutter Assistant Name Role Phone Unavailable Primary Care Provider Unavailabl e Allergies Active Allergy Reactions Criticality Noted Date Comments Gluten Hives 12/05/2022 Gluten Meal Other (See Comments),Itching 03/19/2019 Constipation Chest pain Boils Stomach upset chest pain, rashes, constipation Lecithin Nausea And Vomiting,Other (See Comments),Itching Low 03/19/2019 More constipated More constipated Soy Allergy (Obsolete) Headaches,Other (See Comments) 11/15/2019 Medications diphenhydrAMINE (BENADRYL) 25 MG tabletIndicatio ns:MS (multiple sclerosis) ([facility]),Gynecolog ic exam,BV (bacterial vaginosis) Take 25 mg by mouth every 6 hours as needed. Active Dalfampridine (AMPYRA PO) Take 1 tablet by mouth 2 times daily Active magnesium oxide (MAG-OX) 400 MG tablet Take 2 tablets by mouth daily Active linaclotide (LINZESS) 145 MCG capsule Take 145 mcg by mouth every morning (before breakfast) Active Ascorbic Acid (VITAMIN C) 100 MG CHEW Take 100 mg by mouth daily Active ocrelizumab (OCREVUS) 300 MG/10ML SOLN injection Ocrelizumab (Ocrevus) 30 mg/mL Solution Active 30 MG IV EVERY 6 MONTHS April 02, 2022 5:21pm pt. recieves infusion Q6M for MS 2 Active nystatin-triamc inolone (MYCOLOG II) 442570-1.1 UNIT/GM-% cream Apply topically 2 times daily. 30 g 3 Active Active Problems Problem Noted Date Diagnosed Date Yeast infection 12/05/2022 Vulvar irritation 12/05/2022 Vaginal irritation 12/05/2022 Obstructive sleep apnea 07/28/2017 Overview (08/23/2017): Updating Deprecated Diagnoses Restless leg syndrome 07/28/2017 Somnolence, daytime 07/28/2017 MS (multiple sclerosis) 07/04/2011 Insomnia Resolved Problems Problem Noted Date Diagnosed Date Resolved Date Encounter for routine gyneco logical examination 11/05/2010 07/04/2011 Family History Medical History Relation Name Comments Cancer Maternal Grandfather Diabetes Maternal Grandmother Relation Name Status Comments Brother Alive Father Alive Maternal Grandfather Maternal Grandmother Mother Alive Sister Alive Social History Tobacco Use Types Packs/Day Years Used Date Smoking Tobacco: Never Smokeless Tobacco: Never Tobacco Cessation:Counseling Given: Not Answered Alcohol Use Standard Drinks/Week Comments Yes 0 (1 standard drink = 0.6 oz pur e alcohol) Occ Overall Financial Resource Strain (CARDIA) Answe r Date Recorded How hard is it for you to pa y for the very basics like food, housing, medical care, and heating? Not hard at all 01/23/2023 PHQ-2 Answer Date Recorded PHQ-9 Total Score 0 01/23/2023 Hunger Vital Sign Answer Date Recorded Within the past 12 months, y ou worried that your food would run out before you got the money to buy more. Never true 01/24/20 23 Within the past 12 months, t he food you bought just didn't last and you didn't have money to get more. Never true 01/23/2023 PRAPARE - Transportation Answer Date Re corded Lack of Transportation (Medical) Not on file 01/23/2023 In the past 12 months, has l ack of transportation kept you from meetings, work, or from getting things needed for daily living? No 01/23/2023 Housing Stability Vital Sign Answer Esequiel e Recorded Unable to Pay for Housing in the Last Year Not o n file 01/23/2023 Number of Places Lived in the Last Year Not on f ile 01/23/2023 In the last 12 months, was t here a time when you did not have a steady place to sleep or slept in a penitentiary (including now)? No 01/23/2023 Food Insecurity Answer Date Recorded Within the past 12 months, y ou worried that your food would run out before you got the money to buy more. 1 01/23/2023 Within the past 12 months, t he food you bought just didn't last and you didn't have money to get more. 1 01/23/2023 Comments No Sex and Gender Information Value Date Recorded Sex Assigned at Not on file Legal Sex Female 6:58 AM EST Gender Identity Not on file Sexual Orientation Not on file Last Filed Vital Signs Vital Sign Reading Time Taken Comments Blood Pressure 110/72 04/21/2023 11:34 AM CDT Pulse 98 04/21/2023 11:34 AM CDT Temperature 36.7 C (98 F) 04/21/2023 11:34 AM CDT Respiratory Rate 18 04/21/2023 11:34 AM CDT Oxygen Saturation 100% 04/21/2023 11:34 AM CDT Inhaled Oxygen Concentration - - Weight 57.2 kg (126 lb) 01/23/2023 11:15 AM EDT Height 168.9 cm (5' 6.5 ) 01/23/2023 11:15 AM ED T Body Mass Index 20.03 01/23/2023 11:15 AM EDT Plan of Treatment Health Maintenance Due Date Last Done Comments Depression Screen 1997 Varicella vaccine (1 of 2 - 13+ 2-dose series) 1998 HIV screen 2000 Hepatitis C screen 2003 Hepatitis B vaccine (1 of 3 - 19+ 3-dose series) 2004 Pap smear 07/04/2014 07/04/2011 Cervical cancer screen 2015 HPV (without or with Pap) 2015 COVID-19 Vaccine (2023-2 5 season) 2024 Annual Wellness Visit (Medic are Advantage) 11/10/2024 Flu vaccine (Season Ended) 2025 DTaP/Tdap/Td vaccine (2 - Td or Tdap) 01/16/2032 01/15/2022 HPV vaccine Aged Out No longer eligi ble based on patient's age to complete this topic Hepatitis A vaccine Aged Out No longe r eligible based on patient's age to complete this topic Hib vaccine Aged Out No longer eligi ble based on patient's age to complete this topic Meningococcal (ACWY) vaccine Aged Out No longer eligible based on patient's age to complete this topic Meningococcal B vaccine Aged Out No l onger eligible based on patient's age to complete this topic Pneumococcal 0-49 years Vaccine Aged Out No longer eligible based on patient's age to complete this topic Polio vaccine Aged Out No longer elig ible based on patient's age to complete this topic Procedures Procedure Name Priority Date/Time Associated Diagnosis Comments PAP SMEAR Routine 07/04/2011 from Last 3 Months or Most Recently Relevant to Health Maintenance Results * PAP SMEAR (07/04/2011) 07/04/2011 07/05/2011 10: 22 AM CDT Jose [facility] - 07/08/2011 11:07 AM CDT ----- ------- RUN DATE: 07/08/11 [facility] Laboratory PAGE 1 RUN TIME: 1107 Specimen Inquiry RUN USER: [facility] ----- ------- PATIENT: CAROL ANN ROMAN LOC: LAB U #: [id number] AGE/SX: 25/ ROOM: RE07/04/[address]: MARJAN CABRAL MD : 85 BED: DIS: STATUS: REG REF TLOC: ----- ------- SPEC #: [id number] RECD: 07/05/11 STATUS: ALLISON RE #: [id number] ALLAN: 07/04/11- SUBM DR: MARJAN CABRAL MD ENTERED: 07/05/11 SP TYPE: THIN PREP OTHR DR: DOMINIC BUTLER MD ORDERED: THINPREP PAP 42 CYTOLOGIC DIAGNOSIS NEGATIVE FOR INTRAEPITHELIAL LESION OR MALIGNANCY. The Pap Smear is a screening test and thus carries the risk of a false negative result. Conscientious routine examination schedules and adequate follow-up are necessary for optimal patient care. SPECIMEN ADEQUACY SATISFACTORY FOR EVALUATION. SQUAMOUS METAPLASIA MODERATE INFLAMMATION ----- ------- Signed Signature on GAYE Miguel 07/08/11 ----- ------- END OF REPORT us Marjan Cabral MD PATHOLOGY/CYTOLOGY ORDERABLES E dited NICANOR from Last 3 Months or Most Recently Relevant to Health Maintenance Insurance BCBS MEDICARE [place]ICAID [place] Advance Directives Documents on File Type Date Recorded Patient Manager Mechanical Maintenance Expl anation ACP-Advance Directive 03/14/2018 11:40 PM
--- OUTSIDE RECORDS SUMMARY | 2025-04-11 15:13 | XMS_ITS | Encounter Summary ---
Author Organization [facility] Address [address] [place] [address] Care Team Providers Care Zoo Caretaker Name Role Phone Rashard Lane MD Primary Care Provider [phone] Encounter Details Date Type Department Care Team (Late st Contact Info) Description 10/12/2024 Clinisync Result Encounter [facility] External Department Unsolicited Clarke Hu, DO [address] [place] [address] [place] [address] Social History Tobacco Use Types Packs/Day Years [...] NB OPHT [address] [place] [id number] Simón Powell, DO [address] [place] [address] 04/17/2026 1:00 PM EDT Office Visit [facility] B[facility] OB [address] [place] [address] Jahaira Byers PA [address] [place] [address] documented as of this encounter Procedures Procedure Name Priority Date/Time Associated Diagnosis Comments US UMBILICAL ARTERY DOPPLER 10/12/2024 3:15 PM EST documented in this encounter Results * US umbilical artery doppler (10/12/2024 3:15 PM EST) Anatomical Region Laterality Modality Ultrasound 10/12/2024 3:15 PM EST Narrative 10/12/2024 [...] no critical findings today to indicate delivery. [facility] visit prior to US today. Scheduled [...] no critical findings today to indicate delivery. [facility] visit prior to US today. Scheduled [...] no critical findings today to indicate delivery. [facility] visit prior to US today. Scheduled [...] 74.6 40% 276.2 24%259.2 51% 56.3 28% [id number]% 09/17/2024 34w 2d 87.5 78% 311.8 29%288.9 17% 66.8 43% [id number]% 10/05/2024 36w 6d 89.7 49% 326.4 27%304.3 6% 70.2 26% 563386% Impression ========= Patient presents at 37w6d for [...] 74.6 40% 276.2 24%259.2 51% 56.3 28% [id number]% 09/17/2024 34w 2d 87.5 78% 311.8 29%288.9 17% 66.8 43% 624665% 10/05/2024 36w 6d 89.7 49% 326.4 27%304.3 6% 70.2 26% 636121% Impression ========= Patient presents at 37w6d for [...] 74.6 40% 276.2 24%259.2 51% 56.3 28% 404278% 09/17/2024 34w 2d 87.5 78% 311.8 29%288.9 17% 66.8 43% 652498% 10/05/2024 36w 6d 89.7 49% 326.4 27%304.3 6% 70.2 26% 292163% Impression ========= Patient presents at 37w6d for [...] examination. View: Sufficient us Clarke Hu DO IM US PROCEDURES Final Result documented in this encounter Visit Diagnoses Not on filedocumented in this encounter Care Teams Zoo Caretaker Relationship Specialty [place] [address] [place] [address] PCP - General Pediatrics 10/26/23 documented as of this encounter
--- OUTSIDE RECORDS SUMMARY | 2025-04-11 15:13 | XMS_ITS | Encounter Summary ---
Author Organization [facility] Address [address] [place] [address] Care Team Providers Care Manager Home Name Role Phone Rashard Lane MD Primary Care Provider [phone] Encounter Details Date Type Department Care Team (Late Contact Info) Description 10/12/2024 Abstract [facility] B[facility] OB [address] [place] [address] Clarke Hu, DO [address] [place], [place] [id number] Social History Tobacco Use Types Packs/Day Years [...] NB OPHT [address] [place] [phone] Simón Powell, [address] [place] [address] 04/17/2026 1:00 PM EDT Office Visit [facility] BCP OB [address] [place] [place] [address] Jahaira Byers PA [address] [place] [address] documented as of this encounter Visit Diagnoses Not on filedocumented in this encounter Care Teams Manager Home Relationship Specialty Start [place] [address] [place] [address] PCP - General Pediatrics 10/26/23 documented as of this encounter
--- OUTSIDE RECORDS SUMMARY | 2025-04-11 15:13 | XMS_ITS | Encounter Summary ---
Author Organization [facility] Address [address] [facility] [email or web address] [place] [address] Care Team Providers Care Family Medicine Physician Name Role Phone Rashard Lane MD Primary Care Provider [phone] Encounter Details Date Type Department Care Team (Late st Contact Info) Description 11/19/2024 Orders Only [facility] [address] [facility] [place] [place] [id number] Camilla Rm LPN [address] [place] [address] Social History Tobacco Use Types Packs/Day Years [...] NB OPHT [address] [place] [id number] Simón Powell, DO [address] [place] [address] 04/17/2026 1:00 PM EDT Office Visit [facility] [address] [facility] [place] [address] Jahaira Byers PA [address] [place] [address] documented as of this encounter Procedures Procedure Name Priority Date/Time Associated Diagnosis Comments PAP SMEAR Routine 03/22/2024 12:00 AM EDT documented in this encounter Results * Pap Smear (03/22/2024 12:00 AM EDT) Swab Cervical swab / Unknown us [facility] Bcp Ob Mayte Nurse LAB CYTOLOGY ORDERABLES Final Result EXTERNAL LAB documented in this encounter Visit Diagnoses Not on filedocumented in this encounter Care Teams Family Medicine Physician Relationship Specialty [place] [address] [place] [address] PCP - General Pediatrics 10/26/23 documented as of this encounter
--- OUTSIDE RECORDS SUMMARY | 2025-04-11 15:13 | XMS_ITS | Encounter Summary ---
Author Organization [facility] Address [facility] [place] [address] Care Team Providers Care Edge Inker Name Role Phone Rashard Lane MD Primary Care Provider [phone] Juan Miguel Caballero [facility] Unavailable Unavailable Olimpia Turpin PRESCRIPTION CLERK.MEDICAL RECORD RETRIEVAL SPECIALIST Unavailable Maricruz Valdovinos PA-C Unavailable [phone] Source Comments In the event this information is protected by the Federal Confidentiality of Alcohol and Drug AbusePatient Records regulations: The Federal rules restrict any use of the information to criminally investigate or prosecute any alcohol or drug abuse patient.[facility] Encounter Details Date Type Department Care Team (Late st Contact Info) Description 06/18/2023 [facility] [address] [place] [address] [place] [address] [place] [address] Can you fill out & fax back Social History Tobacco Use Types Packs/Day Years [...] any clubs o r organizations such as amish groups, unions, fraternal or athletic groups, or [...] PHQ-2 Answer Date Recorded PHQ-2 score 0 04/02/2023 [facility] [...] a nursing home (including now)? No 12/16/2022 [place] Depression Scale Answer Date Recorded [place] Depression Scale Total 1 10/30/2020 The thought of harming myself has occurred to me . Never 10/30/2020 Area Deprivation Index Answer Date Ger rded National Score (1-100), lower number is lower ri sk 89 11/27/2022 State Score (1-10), lower number is lower risk N ot on file 11/27/2022 Data from: https://www.neighborhoodatlas.medicine.[facility].edu/. Last address used for calculation [address] 11/27/2022 Education Answer Date Recorded [...] encounter Miscellaneous Notes * Telephone Encounter - Jaylene Schneider - 07/04/2023 2:27 PM EDT Patient calling in - looks like there is another encounter noted that form was filled out and faxedback but patient had not been notified so just wanting to confirm Please advise documented in this encounter Plan of Treatment Upcoming Encounters Date Type Department Care Team (Latest Contact Info) Description 04/12/2025 11:00 AM EDT Specialty [facility]acy [facility] [facility] [address] [place] [address] Pharmacist, [facility] [address] [place] [address] [place] [address] refill - glatiramer MWF--lvm 03/29,04/08([facility]) 05/23/2025 1:30 PM EDT Office Visit OPHT Ophthalmology [address] [address] Maulik Toney, DO [address] [place], [place] [id number] optic neuritis and MS 07/20/2025 12:00 PM EDT Office Visit Family Medicine [facility] [address] [place] [address] MD [address] [place] [address] physical 09/30/2025 9:[address] [facility] Hematology/Oncology [address] [place] [address] [place] [address] OCREVUS documented as of this encounter Visit Diagnoses Not on filedocumented in this encounter Care Teams Edge Inker Relationship Specialty Start Date End Date Rashard Lane MD [address] [place] [address] PCP - General Family Medicine 12/09/19 Juan Miguel Caballero [facility] Pharm[facility] 05/30/24 Olimpia Turpin, PRESCRIPTION CLERK.MEDICAL RECORD RETRIEVAL SPECIALIST [address] [place] [address] Buyer Liaison Family Medicine 10/18/24 Maricruz Valdovinos PA-C [address] [place] [address] Buyer Liaison Internal Medicine 10/18/24 11/11/24 documented as of this encounter
--- OUTSIDE RECORDS SUMMARY | 2025-04-11 15:13 | XMS_ITS | Clinical Summary ---
Author Organization [facility] Address [address] [facility] [place] [address] Care Team Providers Care Photographic Engineer Name Role Phone Rashard Lane MD Primary Care Provider [phone] Allergies Active Allergy Reactions Criticality Noted Date Comments Gluten Meal Hives,Itching,Unknow n 03/19/2019 Constipation Chest pain Boils Stomach upset chest pain, rashes, constipation Constipation Chest pain Boils Stomach upset chest pain, rashes, constipation Other reaction(s): Other (See Comments) Constipation Chest pain Boils Stomach upset chest pain, rashes, constipation Other Reaction(s): Other (See Comments), Other: See Comments Lecithin Itching,Nausea And Vomiting Low 03/19/2019 Other Reaction(s): GI Upset, GI Upset, Other (See Comments), Other: See Comments, Unknown, Unknown, Unknown More constipated More constipated More constipated Other reaction(s): Nausea And Vomiting More constipated More constipated More constipated More constipated Other Headache 11/15/2019 Other Reaction(s): Intolerance Other reaction(s): Headaches, Other (See Comments) Soy Allergy (Obsolete) Headache,Unknown 11/15/2019 Other Reaction(s): Other (See Comments) Medications magnesium oxide (Mag-Ox) 400 MG tablet Take 1 tablet by mouth at bedtime. Active ergocalciferol (Vitamin D-2) 1.25 MG (91517 UT) capsule Take 50,000 Units by mouth once a week. 07/31/20 23 Active cetirizine (ZyrTEC) 10 MG tabletIndicatio ns:Seasonal allergic rhinitis due to pollen Take 1 tablet (10 mg) by mouth in the morning. 30 tablet 08/09/20 23 Active clotrimazole-be tamethasone (Lotrisone) creamIndication s:Vaginal odor,Vaginal discharge,Expos ure to STD Apply 1 application topically Daily Apply to affected area daily for 7 days 45 g 02/23/20 24 Active cholecalciferol (Vitamin D3) 1.25 MG (80822 UT) tablet Take 1.25 mg by mouth once a week Active glatiramer (Copaxone,Glato pa) 20 MG/ML solution prefilled syringe Inject 20 mg under the skin in the morning. Active Vit-Fe Fumarate-FA (M- Plus) 27-1 MG tablet Take 1 tablet by mouth Daily 10/21/20 24 Active fluticasone (Flonase) 50 MCG/ACT nasal sprayIndication s:Upper respiratory tract infection, unspecified type Administer 2 sprays into each nostril Daily as needed for rhinitis Shake gently. Before first use, prime pump. After use, clean tip and replace cap. 16 g 12/10/19 25 Active QUEtiapine (SEROquel) 25 MG tablet Take 25-50 mg by mouth every 12 (twelve) hours if needed 02/15/20 25 Active tobramycin (Tobrex) 0.3 % ophthalmic solution 03/11/20 25 Active Ketotifen Fumarate 0.035 % solution Administer 1 drop into affected eye(s) in the morning and 1 drop in the evening. 03/07/20 25 Active Ocrelizumab (OCREVUS IV) Infuse into a venous catheter every 6 (six) months Active mometasone (Elocon) 0.1 % cream Apply topically Daily 07/19/20 24 025 Discontinued methylPREDNISol one (Medrol Dospak) 4 MG tabletsIndicati ons:MS (multiple sclerosis) (CMS/HCC) Day 1: 6 tablets Day 2: 5 tablets Day 3: 4 tablets Day 4: 3 tablets Day 5: 2 tablets Day 6: 1 tablet 21 tablet 08/24/20 24 025 Discontinued valACYclovir (Valtrex) 500 MG tabletIndicatio ns:HSV (herpes simplex virus) infection Take 1 tablet (500 mg) by mouth Daily 30 tablet 5 09/21/20 24 025 famotidine (Pepcid) 20 MG tablet 02/04/20 25 025 Discontinued Ferrous Sulfate (IRON PO) Take 1 tablet by mouth in the morning. 02/05/20 25 025 Discontinued tobramycin-dexA METHasone (Tobradex) ophthalmic suspensionIndic ations:Foreign body of right cornea, initial encounter Administer 1 drop into the left eye in the morning and 1 drop in the evening and 1 drop before bedtime. Do all this for 14 days. 5 mL 1 03/14/20 25 025 Active Problems Problem Noted Date Diagnosed Date Foreign body of right cornea 03/14/2025 HSV (herpes simplex virus) infection 03/22/2024 Positive urine test 03/22/2024 Well woman exam with routine gynecological exam 03/22/2024 Missed menses 03/22/2024 Encounters Date Type Department Care Team Description 04/11/2025 1:00 PM EDT Office Visit [facility] OB [address] [facility] [place] [address] Jahaira Byers PA Well woman exam with routine gynecological exam 04/11/2025 Bamboo flowsheet N[facility] OB [address] [facility] [place] [address] Jahaira Byers PA 03/14/2025 1:30 PM EDT Office Visit [facility] OPHT [address] [place] [address] Simón Powell, DO Foreign body of right cornea, initial encounter (Primary Dx) 03/14/2025 Bamboo flowsheet [facility] [address] [place] [address] Simón Powell DO 03/14/2025 Travel 02/15/2025 7:40 PM EDT Office Visit [facility] [address] [place] [address] Eligio Thomas DO Viral syndrome (Primary Dx) 02/15/2025 Travel from Last 3 Months Family History Medical History Relation Name Comments Prostate cancer Father Prostate cancer Paternal Grandfather Alzheimer's disease Paternal Grandmother Kaitlin Martinez Diabetes Paternal Grandmother Kaitlin Martinez Multiple sclerosis Sister Relation Name Status Comments Brother x3 Daughter x1 Father Alive Mother Alive Paternal Grandfather Paternal Grandmother Kaitlin Martinez Sister x3 Social History Tobacco Use Types Packs/Day Years [...] PM EDT Sexual Orientation Not on file Last Filed Vital Signs Vital Sign Reading Time Taken Comments Blood Pressure 100/80 04/11/2025 1:17 PM EDT Pulse 117 02/15/2025 7:46 PM EDT Temperature 36.3 C (97.4 F) 02/15/2025 7:46 PM EDT Respiratory Rate 18 01/20/2024 1:42 PM EDT Oxygen Saturation 98% 02/15/2025 7:46 PM EDT Inhaled Oxygen Concentration - - Weight 65.5 kg (144 lb 8 oz) 04/11/2025 1:17 PM EDT Height 168.9 cm (5' 6.5 ) 09/18/2023 9:36 AM EST Body Mass Index 22.97 09/18/2023 9:36 AM EST Plan of Treatment Upcoming Encounters Date Type Department Care Team (Late st Contact Info) Description 04/25/2025 2:45 PM EDT Office Visit [facility] NB OPHT [address] [facility] [place] [address] Zahler, Simón D, DO [address] [place] [address] 04/17/2026 1:00 PM EDT Office Visit [facility] BCP OB [address] [facility] [place] [address] Jahaira Byers PA [address] [facility] [address] [place], [place] [id number] Insurance MEDICAID [place] [employer] MEDICARE Care Teams Photographic Engineer Relationship Specialty [place] [address] [place] [address] PCP - General Pediatrics 10/26/23
--- OUTSIDE RECORDS SUMMARY | 2025-04-11 15:13 | XMS_ITS | Encounter Summary ---
Author Organization [facility] Address [address] [place] [address] Care Team Providers Care Geographic Analyst Name Role Phone Rashard Lane MD Primary Care Provider [phone] Juan Miguel Caballero [facility] Unavailable Unavailable Olimpia Turpin TRAIN OPERATIONS SUPERVISOR.[facility] Unavailable Maricruz Valdovinos PA-C Unavailable [phone] Source Comments In the event this information is protected by the Federal Confidentiality of Alcohol and Drug AbusePatient Records regulations: The Federal rules restrict any use of the information to criminally investigate or prosecute any alcohol or drug abuse patient.[facility] Encounter Details Date Type Department Care Team (Late st Contact Info) Description 12/18/2019 Patient Msg Family Medicine [facility] [address] [place], [place] [id number] Rashard [address] MD [address] [place] [address] RE:results Social History Tobacco Use Types Packs/Day Years Used Date Smoking Tobacco: Never Smokeless Tobacco: Never Alcohol Use Standard Drinks/Week Comments Yes 0 (1 standard drink = 0.6 oz pur e alcohol) occas PHQ-2 Answer Date Recorded PHQ-2 Score 2 11/15/2019 Comments Unknown Sex and Gender Information Value [...] AM EDT Specialty [facility]acy [facility] [facility] [address] [place] [address] Pharmacist, [facility] [address] [place] [address] [place] [address] refill - glatiramer MWF--lvm 03/29,04/08(wamb) 05/23/2025 1:30 PM EDT Office Visit OPHT Ophthalmology [address] [address] Maulik Toney, [address] [place], [place] [address] optic neuritis and MS 07/20/2025 12:00 PM EDT Office Visit Family Medicine [facility] [address] [place] [address] MD [address] [place] [address] physical 09/30/2025 9:00 AM EST Infusion Center Hematology/Oncology [address] [place] [address] [place] [address] OCREVUS documented as of this encounter Visit Diagnoses Diagnosis Vitamin D deficiency Unspecified vitamin D deficiency documented in this encounter Additional Health Concerns Infection Onset Date Last Indicated Resolved Time COVID-19 Rule-Out 01/08/2021 01/08/2021 01/08/2021 6:41 PM EST COVID-19 Rule-Out 02/12/2023 02/12/2023 02/13/2023 1:49 AM EDT COVID-19 Confirmed 02/12/2023 02/12/2023 8:51 PM EDT documented as of this encounter Care Teams Geographic Analyst Relationship Specialty Start Date End Date Rashard Lane MD [address] [place] [address] PCP - General Family Medicine 12/09/19 Juan Miguel Caballero [facility] Pharmacy 05/30/24 Olimpia Turpin, TRAIN OPERATIONS SUPERVISOR.[facility] [address] [place] [address] Hoop Punch And Coiler Operator Helper Family Medicine 10/18/24 Maricruz Valdovinos PA-C [address] [place] [address] Hoop Punch And Coiler Operator Helper Internal Medicine 10/18/24 11/11/24 documented as of this encounter
--- OUTSIDE RECORDS SUMMARY | 2025-04-11 15:13 | XMS_ITS | Encounter Summary ---
Author Organization [facility] Address [address] [place] [address] Care Team Providers Care Harvest Supervisor Name Role Phone Rashadr Lane MD Primary Care Provider [phone] Juan Miguel Caballero [facility] Unavailable Unavailable Olimpia Turpin HIGH ENERGY FORMING EQUIPMENT OPERATOR.DRAPERY SUPERVISOR Unavailable Maricruz Valdovinos PA-C Unavailable [phone] Source Comments In the event this information is protected by the Federal Confidentiality of Alcohol and Drug AbusePatient Records regulations: The Federal rules restrict any use of the information to criminally investigate or prosecute any alcohol or drug abuse patient.[facility] Encounter Details Date Type Department Care Team (Late st Contact Info) Description 06/02/2023 Patient [facility] [place] [address] [address] Anya Cast APRN.DRAPERY SUPERVISOR [address] [place] [address] Social History Tobacco Use Types [...] How often do you attend chur or holiness services? Never 12/16/2022 Do you belong to [...] Answer Date Recorded PHQ-2 score 0 04/02/2023 [facility] - [...] place to sleep or slept in a correction (including now)? No 12/16/2022 [place] Depression Scale Answer Date Recorded [place] Depression Scale Total 1 10/30/2020 The thought of harming myself has occurred to me . Never 10/30/2020 Area Deprivation Index Answer Date Ger rded National Score (1-100), lower number is lower ri sk 89 11/27/2022 State Score (1-10), lower number is lower risk N ot on file 11/27/2022 Data from: https://www.neighborhoodatlas.medicine.[facility].edu/. Last address used for calculation [address] 11/27/2022 Education Answer Date Recorded What [...] AM EDT Specialty [facility]acy [facility] [address] [place] [address] [place] [address] Pharmacist, [facility]3 [address] [place] [address] refill - glatiramer MWF--lvm 03/29,04/08(wa) 05/23/2025 1:30 PM EDT Office Visit OPHT Ophthalmology [address] [address] Maulik Toney DO [address] [place] [address] optic neuritis and MS 07/20/2025 12:00 PM EDT Office Visit Family Medicine [id number] Rashard [address] MD [address] [place] [address] physical 09/30/2025 9:00 AM [facility] Hematology/Oncology [address] [place] [address] [place] [address] OCREVUS documented as of this encounter Visit Diagnoses Not on filedocumented in this encounter Care Teams Harvest Supervisor Relationship Specialty Start Date End Date Rashard Lnae MD [address] [place] [address] PCP - General Family Medicine 12/09/19 Juan Miguel Caballero [facility] 05/30/24 Olimpia Turpin, HIGH ENERGY FORMING EQUIPMENT OPERATOR.DRAPERY SUPERVISOR [address] [place] [address] Wash Oil Cooler Operator Family Medicine 10/18/24 Maricruz Valdovinos PA-C [address] [place] [address] Wash Oil Cooler Operator Internal Medicine 10/18/24 11/11/24 documented as of this encounter
--- OUTSIDE RECORDS SUMMARY | 2025-04-11 15:13 | XMS_ITS | Encounter Summary ---
Author Organization [facility] Address [address] [place] [address] Care Team Providers Care Dental Assistant Instructor Name Role Phone Rashard Lane MD Primary Care Provider [phone] Juan Miguel Caballero [facility] Unavailable Unavailable Olimpia Turpin PROJECT ESTIMATOR.[facility] Unavailable Maricruz Valdovinos PA-C Unavailable [phone] Source Comments In the event this information is protected by the Federal Confidentiality of Alcohol and Drug AbusePatient Records regulations: The Federal rules restrict any use of the information to criminally investigate or prosecute any alcohol or drug abuse patient.[facility] Encounter Details Date Type Department Care Team (Late st Contact Info) Description 10/02/2020 Patient Msg Dermatology [address] [place], [place] [phone] Ángel Pardo MD [address] [place] [address] [place] [address] shampoo Social History Tobacco Use Types Packs/Day Years [...] have Coronavirus / COVID-19? No / Unsure 10/02/2020 9:24 AM EST documented as of this encounter Plan of Treatment Upcoming Encounters Date Type Department Care Team (Latest Contact Info) Description 04/12/2025 11:00 AM EDT Specialty [facility]acy [facility] [address] [place] [address] [address] [place] [address] Pharmacist, [facility] [address] [place] [address] [place] [address] refill - glatiramer MWF--lvm 03/29,04/08(wamb) 05/23/2025 1:30 PM EDT Office Visit OPHT Ophthalmology [address] [address] Maulik Toney, DO [address] [place], [place] [id number] optic neuritis and MS 07/20/2025 12:00 PM EDT Office Visit Family Medicine [facility] [address] [place] [address] MD [address] [facility] [address] physical 09/30/2025 9:00 AM EST Infusion Center Hematology/Oncology [address] [place] [address] [place] [address] OCREVUS documented as of this encounter Visit Diagnoses Not on filedocumented in this encounter Additional Health Concerns Infection Onset Date Last Indicated Resolved Time COVID-19 Rule-Out 01/08/2021 01/08/2021 01/08/2021 6:41 PM EST COVID-19 Rule-Out 02/12/2023 02/12/2023 02/13/2023 1:49 AM EDT COVID-19 Confirmed 02/12/2023 02/12/2023 8:51 PM EDT documented as of this encounter Care Teams Dental Assistant Instructor Relationship Specialty Start Date End Date Rashard Lane MD [address] [place] [address] PCP - General Family Medicine 12/09/19 Juan Miguel Caballero [facility] 05/30/24 Olimpia Turpin, PROJECT ESTIMATOR.[facility] [address] [place] [address] Metal Bench Patternmaker Family Medicine 10/18/24 Maricruz Valdovinos PA-C [address] [place] [address] Metal Bench Patternmaker Internal Medicine 10/18/24 11/11/24 documented as of this encounter
--- OUTSIDE RECORDS SUMMARY | 2025-04-11 15:13 | XMS_ITS | Encounter Summary ---
Author Organization [facility] Address [address] [place] [address] Care Team Providers Care Construction Controller Name Role Phone Rashard Lane MD Primary Care Provider [phone] Juan Miguel Caballero [facility] Unavailable Unavailable Olimpia Turpin GEAR NICKER.RN CARE TRANSITION Unavailable Maricruz Valdovinos PA-C Unavailable [phone] Source Comments In the event this information is protected by the Federal Confidentiality of Alcohol and Drug AbusePatient Records regulations: The Federal rules restrict any use of the information to criminally investigate or prosecute any alcohol or drug abuse patient.[facility] Encounter Details Date Type Department Care Team (Late st Contact Info) Description 04/12/[address] [facility] [address] [address] Provider, [facility] Social History Tobacco Use Types Packs/Day Years Used Date Smoking Tobacco: Never Smokeless Tobacco: Never Alcohol Use Standard Drinks/Week Comments Not Currently 0 (1 standard drink = 0.6 oz pur e alcohol) occas PHQ-2 Answer Date Recorded PHQ-2 score 0 02/08/2021 [place] Depression Scale Answer Date Recorded [place] Depression Scale Total 1 10/30/2020 The thought of harming myself has occurred to me . Never 10/30/2020 Area Deprivation Index Answer Date Ger rded National Score (1-100), lower number is lower ri sk 59 03/29/2022 State Score (1-10), lower number is lower risk N ot on file 03/29/2022 Data from: https://www.neighborhoodatlas.medicine.[facility]/. Last address used for calculation [address] 03/29/2022 Comments No Sex and Gender Information Value [...] suspected to have Coronavirus/COVID-19? No / Unsure 03/26/2022 8:50 AM EDT documented as of this encounter [...] EDT Specialty Pharmacy [facility] [address] [place] [address] Drive [address] [place], [place] [id number] Pharmacist, [facility]ty[facility] [address] [place] [address] [place] [address] refill - glatiramer MWF--lvm 03/29,04/08(wamb) 05/23/2025 1:30 PM EDT Office Visit [facility] [address] [address] Maulik Toney, DO [address] [place], [place] [id number] optic neuritis and MS 07/20/2025 12:00 PM EDT Office Visit Family Medicine [facility] [address] [place] [address] MD [address] [place] [address] physical 09/30/2025 9:00 AM [facility] Hematology/Oncology [address] [place] [address] [place] [address] OCREVUS documented as of this encounter Visit Diagnoses Not on filedocumented in this encounter Additional Health Concerns Infection Onset Date Last Indicated Resolved Time COVID-19 Rule-Out 02/12/2023 02/12/2023 02/13/2023 1:49 AM EDT COVID-19 Confirmed 02/12/2023 02/12/2023 8:51 PM EDT documented as of this encounter Care Teams Construction Controller Relationship Specialty Start Date End Date Rashard Lane MD [address] [place] [address] PCP - General Family Medicine 12/09/19 Juan Miguel Caballero [facility] Pharmacy 05/30/24 Olimpia Turpin, CYNTHIA.[facility] [address] [place] [address] Armored Vehicle Officer Family Medicine 10/18/24 Maricruz Valdovinos PA-C [address] [place] [address] Armored Vehicle Officer Internal Medicine 10/18/24 11/11/24 documented as of this encounter
--- OUTSIDE RECORDS SUMMARY | 2025-04-11 15:13 | XMS_ITS | Referral Summary ---
Author Organization [facility] Address [address] [place] [address] Care Team Providers Care Well Drill Operator Helper Cable Tool Name Role Phone Unavailable Primary Care Provider Unavailabl e Social History Tobacco Use Types Packs/Day Years Used Date Smoking Tobacco: Never Assessed Sex and Gender Information Value Date Recorded Sex Assigned at Not on file Gender Identity Not on file Sexual Orientation Not on file Plan of Treatment Not on file
--- OUTSIDE RECORDS SUMMARY | 2025-04-11 15:13 | XMS_ITS | Encounter Summary ---
Author Organization [facility] Address [address] [place] [address] Care Team Providers Care Parking Cashier Name Role Phone Rashard Lane MD Primary Care Provider [phone] Juan Miguel Caballero [facility] Unavailable Unavailable Olimpia Turpin PSYCHIATRIC SOCIAL WORKER SUPERVISOR.[facility] Unavailable Maricruz Valdovinos PA-C Unavailable [phone] Source Comments In the event this information is protected by the Federal Confidentiality of Alcohol and Drug AbusePatient Records regulations: The Federal rules restrict any use of the information to criminally investigate or prosecute any alcohol or drug abuse patient.[facility] Encounter Details Date Type Department Care Team (Late st Contact Info) Description 08/30/2020 Patient Msg Family Medicine [facility] [address] [place], [place] [id number] Rashard [address] MD [address] [place] [address] results Social History Tobacco Use Types Packs/Day Years [...] have Coronavirus / COVID-19? No / Unsure 08/29/2020 2:59 PM EDT documented as of this encounter Plan of Treatment Upcoming Encounters Date Type Department Care Team (Latest Contact Info) Description 04/12/2025 11:00 AM EDT Specialty Pharmacy [facility] [address] [place], [place] 10[address]14[address] [place] [address] Pharmacist, [facility] [address] [place] [address] [place] [address] refill - glatiramer MWF--lvm 03/29,04/08(wamb) 05/23/2025 1:30 PM EDT Office Visit [facility] [address] [address] Maulik Toney, DO [address] [place], [place] [phone] optic neuritis and MS 07/20/2025 12:00 PM EDT Office Visit Family Medicine [facility] [address] [place] [address] MD [address] [place] [address] physical 09/30/2025 9:00 AM EST [facility] Hematology/Oncology [address] [place] [address] [place] [address] OCREVUS documented as of this encounter Visit Diagnoses Not on filedocumented in this encounter Additional Health Concerns Infection Onset Date Last Indicated Resolved Time COVID-19 Rule-Out 01/08/2021 01/08/2021 01/08/2021 6:41 PM EST COVID-19 Rule-Out 02/12/2023 02/12/2023 02/13/2023 1:49 AM EDT COVID-19 Confirmed 02/12/2023 02/12/2023 8:51 PM EDT documented as of this encounter Care Teams Parking Cashier Relationship Specialty Start Date End Date Rashard Lane MD [address] [place] [address] PCP - General Family Medicine 12/09/19 Juan Miguel Caballero [facility] 05/30/24 Olimpia Turpin, PSYCHIATRIC SOCIAL WORKER SUPERVISOR.[facility] [address] [place] [address] Development Eng Family Medicine 10/18/24 Maricruz Valdovinos PA-C [address] [place] [address] Development Eng Internal Medicine 10/18/24 11/11/24 documented as of this encounter
--- OUTSIDE RECORDS SUMMARY | 2025-04-11 15:14 | XMS_ITS | Encounter Summary ---
Author Organization [facility] Address [address] [place] [address] Care Team Providers Care Biostatistics Manager Name Role Phone Rashard Lane MD Primary Care Provider [phone] Juan Miguel Caballero [facility] Unavailable Unavailable Olimpia Turpin SOUND ENGINEER.WETLAND SCIENTIST Unavailable Maricruz Valdovinos PA-C Unavailable [phone] Source Comments In the event this information is protected by the Federal Confidentiality of Alcohol and Drug AbusePatient Records regulations: The Federal rules restrict any use of the information to criminally investigate or prosecute any alcohol or drug abuse patient.[facility] Encounter Details Date Type Department Care Team (Late st Contact Info) Description 08/18/2023 Patient Msg Neurology [address] [place] [address] Provider, [facility] Appointment Social History [...] often do you attend chur ch or jew services? Never 12/16/2022 Do you belong to [...] Answer Date Recorded PHQ-2 score 0 08/11/2023 [facility] of Occupat ional Health - Occupational Stress [...] in a custodial (including now)? No 12/16/2022 [place] Depression Scale Answer Date Recorded [place] Depression Scale Total 1 10/30/2020 The thought of harming myself has occurred to me . Never 10/30/2020 Area Deprivation Index Answer Date Ger rded National Score (1-100), lower number is lower ri sk 93 07/17/2023 State Score (1-10), lower number is lower risk 9 07/17/2023 Data from: https://www.neighborhoodatlas.medicine.[facility].edu/. Last address used for calculation [address] [...] AM EDT Specialty Pharmacy [facility] [address] [place] [address] [address] [place] [address] Pharmacist, [facility]ty[facility] [address] [place] [address] refill - glatiramer MWF--lvm 03/29,04/08(wa) 05/23/2025 1:30 PM EDT Office Visit [facility] [address] [address] Maulik Toney DO [address] [place] [address] optic neuritis and MS 07/20/2025 12:00 PM EDT Office Visit Family Medicine [facility] [address] [place] [address] MD [address] [facility] [place] [address] physical 09/30/2025 9:00 AM [facility] Hematology/Oncology [address] [place] [address] [place] [address] OCREVUS documented as of this encounter Visit Diagnoses Not on filedocumented in this encounter Care Teams Biostatistics Manager Relationship Specialty Start Date End Date Rashard Lane MD [address] [place] [address] PCP - General Family Medicine 12/09/19 Juan Miguel Caballero [facility] 05/30/24 Olimpia Turpin, SOUND ENGINEER.WETLAND SCIENTIST [address] [place] [address] Auger Machine Offbearer Family Medicine 10/18/24 Maricruz Valdovinos PA-C [address] [place] [address] Auger Machine Offbearer Internal Medicine 10/18/24 11/11/24 documented as of this encounter
--- OUTSIDE RECORDS SUMMARY | 2025-04-11 15:14 | XMS_ITS | Encounter Summary ---
Author Organization [facility] Address [address] [place] [address] Care Team Providers Care Sales Expert Home Theater Name Role Phone Rashard Lane MD Primary Care Provider [phone] Juan Miguel Caballero [facility] Unavailable Unavailable Olimpia Turpin PUBLIC DEFENDER.CERTIFIED MIDWIFE Unavailable [phone] Maricruz Valdovinos PA-C Unavailable [phone] Source Comments In the event this information is protected by the Federal Confidentiality of Alcohol and Drug AbusePatient Records regulations: The Federal rules restrict any use of the information to criminally investigate or prosecute any alcohol or drug abuse patient.[facility] Reason for Visit * Reason Comments Medication Preauthorization Dalfampridin e ER 10MG er tablets Encounter Details Date Type Department Care Team (Late st Contact Info) Description 12/31/2023 [facility] [address] [address] Anya Cast APRN.CERTIFIED MIDWIFE [address] [place] [address] Medication Preauthorization (Dalfampridine ER 10MG er tablets) Social History Tobacco Use Types Packs/Day Years [...] often do you attend chur ch or mandaen services? Never 12/16/2022 Do you belong to any clubs o r organizations such as confucianism groups, unions, fraternal [...] Answer Date Recorded PHQ-2 score 0 08/11/2023 [facility] of Occupat ional Health - Occupational Stress [...] a long term (including now)? No 12/16/2022 [place] Depression Scale Answer Date Recorded [place] Depression Scale Total 1 10/30/2020 The thought of harming myself has occurred to me . Never 10/30/2020 Area Deprivation Index Answer Date Ger rded National Score (1-100), lower number is lower ri sk 93 07/17/2023 State Score (1-10), lower number is lower risk 9 07/17/2023 Data from: https://www.neighborhoodatlas.medicine.[facility].edu/. Last address used for calculation [address] [...] EDT Specialty Pharmacy [facility] [address] [place], [place] [address]04[address] [place] [address] Pharmacist, [facility] [address] [place] [address] refill - glatiramer MWF--lvm 03/29,04/08(wamb) 05/23/2025 1:30 PM EDT Office Visit [facility] [address] [address] Maulik Toney, [address] [place] [address] optic neuritis and MS 07/20/2025 12:00 PM EDT Office Visit Family Medicine [facility] [address] [place] [address] MD [address] [place] [address] physical 09/30/2025 9:00 AM [facility] Hematology/Oncology [address] [place] [address] [place] [address] OCREVUS documented as of this encounter Visit Diagnoses Not on filedocumented in this encounter Care Teams Sales Expert Home Theater Relationship Specialty Start Date End Date Rashard Lane MD [address] [place] [address] PCP - General Family Medicine 12/09/19 Juan Miguel Caballero [facility] 05/30/24 Olimpia Turpin, PUBLIC DEFENDER.CERTIFIED MIDWIFE [address] [place] [address] Shell Press Operator Family Medicine 10/18/24 Maricruz Valdovinos PA-C [address] [place] [address] Shell Press Operator Internal Medicine 10/18/24 11/11/24 documented as of this encounter
[2025-04-18 10:08] LABS: Age Gdln ACOG Testing Note (.); HPV Aptima Negative (Negative); IGP, Aptima HPV, rfx 16/18,45 Note (.)
== END 2025-04-11 15:06 | disposition home or self-care (01) ==
LOC: LAB 15:05
PROVIDERS: Visit Provider Physician Assistant
DX: Z01.419 Encounter for gynecological examination (general) (routine) without abnormal findings (principal)
CPT/HCPCS: 87624; 88175

== ENCOUNTER 2025-08-26 19:37 | Emergency (ER) | payer OTHER, MEDICARE, MEDICAID, SELFPAY ==
--- OUTSIDE RECORDS SUMMARY | 2023-11-20 12:30 | XMS_ITS | Continuity of Care Document ---
Author Organization [facility] Address [address] [place] [address] Phone Care Team Providers Care Highway Maintainer Name Role Phone Khari Hall Unavailable Unavailable [...] 3 YRS+ Nutrit Couns For Control Of [place] Dis Oct Comp Oral Eval New/estab Patient 2019 CAPILLARY BLOOD DRAW Advance Directives Directive Yes / No Effective Date File Name No Information Encounters Encounter Description Practice Location Reason(s) For Visit Diagnoses Date Provider Providers Copied on Encounter [facility], [address] [place] [address], [id number], [place] tel:[phone] [facility] No Information Jesse Blackwell. [address] [place], [place], [id number], [place]. tel:[phone] [facility], [address] [place] [address], [id number], [place] tel:[phone] Dental Clinic D. L (chief complaint) Encounter for screening for dental disorders Ryan Hillmanry. [address] [place], [place], [id number], [place]. tel:[phone] [facility], [address] [place], [place], [id number], [place] tel:[phone] [facility] Encounter for screening for disorder due to exposure to contaminant Jesse BENZ Khari. [address] [place], [place], [id number], [place]. tel:[phone] Family History Family Member Type Diagnosis Age At Onset Father Problem prostate cancer Mother Problem Alive and well Father Problem Alive and well Immunizations Vaccine Date Status Comments Flulaval/ Fluarix administered Source: Ne w Immunization Record Payers Payer name Insurance type Covered green party ID Authoriza tion(s) [employer] H[employer] PPS MB [id number] [employer] PPS MB [id number] Social History Type Description Quantity Date Captured [...]
--- OUTSIDE RECORDS SUMMARY | 2025-03-28 11:45 | XMS_ITS ---
Author Organization [facility] Address [address] [place] [address] Care Team Providers Care Aerodynamic Consultant Name Role Phone Melina Lowe Primary Care Provider Guillermo Collins [phone] Encounters Encounter Location Date Provider Diagnosis [address] [address] 03/28/2025 Guillermo Collins Plan Of Treatment Next Appt Details Provider Name:Guillermo Tyson er, 09/13/2025 01:00:00 PM, [address] [place] [address], [id number], Progress Notes * STERLING ROMANHDOB: 5 (40 yo F)Acc No.[id number]:03/28/2025 Patient: CAROL ANN MAYORGA Provider: Olivia COLLINS RD :1985 A ge:39 Y S ex:Female Date:03/28/2025 Address:[address] [place] [id number] Pcp:Melina Lowe * Electronic signature of Felipa Collins RD on 08/26/2025 at 07:54 PM EDT Sign off status: Pending * Provider: Olivia COLLINS RD Date: 0 03/28/2025 Generated for Printi ng/Famehreeng/eTransmitting on: 1 07:54 PM EDT
--- OUTSIDE RECORDS SUMMARY | 2025-05-19 09:00 | XMS_ITS ---
Author Organization [facility] Address [address] [place] [address] Care Team Providers Care Body Mechanic Apprentice Name Role Phone Melina Lowe Primary Care Provider Guillermo Collins [phone] REASON FOR VISIT Dietitian F/U Encounters Encounter Location Date Provider Diagnosis [address] [address] 05/19/2025 Guillermo Collins Plan Of Treatment Next Appt Details Provider Name:Guillermo Tyson er, 09/13/2025 01:00:00 PM, [address] [place] [address], [phone], Progress Notes * STERLING ROMANHDOB: [birth year] (40 yo F)Acc No.[id number]:05/19/2025 Patient: STERLING MAYORGASudheer Provider: Olivia COLLINS RD :1985 A ge:39 Y S ex:Female Date:05/19/2025 Address:[address] [place] [id number] Pcp:Melina Lowe Subjective: * Chief Complaints: * D ietitian F/U * Electronic signature of Felipa Collins RD on 08/26/2025 at 07:53 PM EDT Sign off status: Pending * Provider: Olivia COLLINS RD Date: 0 05/19/2025 Generated for Kesha galdamez/Darren/Jamal on: 1 07:53 PM EDT
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
--- OUTSIDE RECORDS SUMMARY | 2025-08-26 19:53 | XMS_ITS | Encounter Summary ---
Author Organization [facility] Address [address] [place] [address] Care Team Providers Care Reject Opener And Filler Name Role Phone Rashard Lane MD Primary Care Provider [phone] Juan Miguel Caballero [facility] Unavailable Unavailable Olimpia Turpin SPIRITUAL MINISTER.CARDIAC EXERCISE SPECIALIST Unavailable Maricruz Valdovinos PA-C Unavailable [phone] Indiana Hein SPIRITUAL MINISTER.CARDIAC EXERCISE SPECIALIST Unavailable + [phone] Source Comments In the event this information is protected by the Federal Confidentiality of Alcohol and Drug AbusePatient Records regulations: The Federal rules restrict any use of the information to criminally investigate or prosecute any alcohol or drug abuse patient.[facility] Encounter Details Date Type Department Care Team ([facility] st Contact Info) Description 07/24/2022 Patient Msg Internal Medicine [address] [place], [place] [phone] Provider, Ccf Appointments Social History Tobacco Use Types Packs/Day Years Used Date Smoking Tobacco: Never Smokeless Tobacco: Never Alcohol Use Standard Drinks/Week Comments Not Currently 0 (1 standard drink = 0.6 oz pur e alcohol) occas PHQ-2 Answer Date Recorded PHQ-2 score 0 02/08/2021 [place] Depression Scale Answer Date Recorded [place] Depression Scale Total 1 10/30/2020 The thought of harming myself has occurred to me . Never 10/30/2020 Area Deprivation Index Answer Date Ger rded National Score (1-100), lower number is lower ri sk 59 03/29/2022 State Score (1-10), lower number is lower risk N ot on file 03/29/2022 Data from: https://www.neighborhoodatlas.medicine.[facility]/. Last address used for calculation [address] 03/29/2022 Education Answer Date Recorded [...] st Contact Info) Description 09/30/2025 9:00 AM EST [facility] Hematology/Oncology [address] [place] [address] [place] [address] OCREVUS documented as of this encounter Visit Diagnoses Not on filedocumented in this encounter Additional Health Concerns Infection Onset Date Last Indicated Resolved Time COVID-19 Rule-Out 02/12/2023 02/12/2023 02/13/2023 1:49 AM EDT COVID-19 Confirmed 02/12/2023 02/12/2023 8:51 PM EDT documented as of this encounter Care Teams Reject Opener And Filler Relationship Specialty Start Date End Date Rashard Lane MD [address] [place] [address] PCP - General Family Medicine 12/09/19 Juan Miguel Caballero [facility] 05/30/24 04/12/25 Olimpia Turpin, SPIRITUAL MINISTER.CARDIAC EXERCISE SPECIALIST [address] [place] [address] Pathology Manager Family Medicine 10/18/24 05/22/25 Maricruz Valdovinos PA-C [address] [place] [address] Pathology Manager Internal Medicine 10/18/24 11/11/24 Indiana Hein, SPIRITUAL MINISTER.CARDIAC EXERCISE SPECIALIST [address] [place] [address] Pathology Manager Family Medicine 06/08/25 documented as of this encounter
--- OUTSIDE RECORDS SUMMARY | 2025-08-26 19:53 | XMS_ITS | Encounter Summary ---
Author Organization [facility] Address [address] [place] [address] Care Team Providers Care Wire Sawyer Name Role Phone Rashard Lane MD Primary Care Provider [phone] Juan Miguel Caballero [facility] Unavailable Unavailable Olimpia Turpin CONCRETE BLOCK MAKER.LINE SERVER Unavailable Maricruz Valdovinos PA-C Unavailable [phone] Indiana Hein CONCRETE BLOCK MAKER.LINE SERVER Unavailable Source Comments In the event this information is protected by the Federal Confidentiality of Alcohol and Drug AbusePatient Records regulations: The Federal rules restrict any use of the information to criminally investigate or prosecute any alcohol or drug abuse patient.[facility] Encounter Details Date Type Department Care Team ([facility] st Contact Info) Description 06/23/2024 Abstract Neurology [address] [place] [address] Main, Sleep Center [address] [place] [address] Social History Tobacco Use Types Packs/Day Years Used Date Smoking Tobacco: Never Passive Smoke Exposure: Past Smokeless Tobacco: Never Alcohol Use Standard Drinks/Week Comments Not Currently 0 (1 standard drink = 0.6 oz pur e alcohol) occas Social Connection and Isolation Panel Answer Date Recorded In a typical week, how many times do you talk on the phone with family, friends, or neighbors? Three times a week 12/16/2022 How often do you get togethe r with friends or relatives? Never 12/16/2022 How often do you attend chur ch or rastafarian services? Never 12/16/2022 Do you belong to any clubs o r organizations such as restorationism groups, unions, fraternal or athletic groups, or [...] Answer Date Recorded PHQ-2 score 0 05/23/2024 [facility] - Occupational [...] place to sleep or slept in a detention (including now)? No 12/16/2022 [place] Depression Scale Answer Date Recorded [place] Depression Scale Total 1 10/30/2020 The thought of harming myself has occurred to me . Never 10/30/2020 Area Deprivation Index Answer Date Ger rded National Score (1-100), lower number is lower ri sk 93 07/17/2023 State Score (1-10), lower number is lower risk 9 07/17/2023 Data from: https://www.neighborhoodatlas.medicine.[facility].edu/. Last address used for calculation [address] 07/17/2023 Education Answer Date Recorded What [...] st Contact Info) Description 09/30/2025 9:00 AM [facility] Hematology/Oncology [address] [place] [address] [place] [address] OCREVUS documented as of this encounter Visit Diagnoses Not on filedocumented in this encounter Care Teams Wire Sawyer Relationship Specialty Start Date End Date Rashard Lane MD [address] [place] [address] PCP - General Family Medicine 12/09/19 Juan Miguel Caballero [facility] 05/30/24 04/12/25 Olimpia Turpin APRN.LINE SERVER [address] [place] [address] Boiler Room Helper Family Medicine 10/18/24 05/22/25 Maricruz Valdovinos PA-C [facility] [place] [address] [facility] Internal Medicine 10/18/24 11/11/24 Indiana Hein APRN.LINE SERVER [address] [place], [place] [id number] [facility] Family Medicine 06/08/25 documented as of this encounter
--- OUTSIDE RECORDS SUMMARY | 2025-08-26 19:53 | XMS_ITS | Encounter Summary ---
Author Organization [facility] Address [address] [place] [address] Care Team Providers Care Drop Hammer Operator Helper Name Role Phone Sofy Pandya MD Unavailable [phone] Encounter Details Date Type Department Care Team (Late st Contact Info) Description 11/09/2021 Abstract PATIENT ACUITY SCORE Social History Tobacco Use Types Packs/Day Years Used Date Smoking Tobacco: Never Smokeless Tobacco: Never PHQ-2 Answer Date Recorded PHQ-2 Total 0 03/07/2021 Comments No Sex and Gender Information Value Date Recorded Sex Assigned at Not on file Legal Sex Female 2:32 PM EDT Gender Identity Not on file Sexual Orientation Not on file documented as of this encounter Plan of Treatment Not on file documented as of this encounter Visit Diagnoses Not on filedocumented in this encounter Additional Health Concerns Infection Onset Date Last Indicated Resolved Time COVID-19 Comment:Positive test for SARS-CoV-2 RNA on 10/28/2022: Positive 10/28/2022 10/28/2022 11/02/2022 12:01 AM EST documented as of this encounter Care Teams Drop Hammer Operator Helper Relationship Specialty Start Date End Date Sofy Pandya MD [address] [place] [address] Physician Obstetrics/Gynecology 03/16/21 documented as of this encounter
--- OUTSIDE RECORDS SUMMARY | 2025-08-26 19:53 | XMS_ITS | Encounter Summary ---
Author Organization [facility] Address [address] [place] [address] Care Team Providers Care Installer Molding And Trim Name Role Phone Rashard Lane MD Primary Care Provider [phone] Juan Miguel Caballero [facility] Unavailable Unavailable Olimpia Turpin SUPERVISOR PARK WORKERS.NICKER AND BREAKER Unavailable Maricruz Valdovinos PA-C Unavailable [phone] Indiana Hein SUPERVISOR PARK WORKERS.NICKER AND BREAKER Unavailable [phone] Source Comments In the event this information is protected by the Federal Confidentiality of Alcohol and Drug AbusePatient Records regulations: The Federal rules restrict any use of the information to criminally investigate or prosecute any alcohol or drug abuse patient.[facility] Encounter Details Date Type Department Care Team ([facility] Contact Info) Description 04/15/2024 Patient Msg Neurology [address] [place] [address] Provider, Ccf Appointment Social History [...] Answer Date Recorded PHQ-2 score 5 04/13/2024 [facility] - Occupational Stress Questionnaire [...] in a fci (including now)? No 12/16/2022 [place] Depression Scale Answer Date Recorded [place] Depression Scale Total 1 10/30/2020 The thought of harming myself has occurred to me . Never 10/30/2020 Area Deprivation Index Answer Date Ger rded National Score (1-100), lower number is lower ri sk 93 07/17/2023 State Score (1-10), lower number is lower risk 9 07/17/2023 Data from: https://www.neighborhoodatlas.medicine.[facility].edu/. Last address used for calculation [address] [...] st Contact Info) Description 09/30/2025 9:[address] [facility] Hematology/Oncology [address] [place] [address] [place] [address] OCREVUS documented as of this encounter Visit Diagnoses Not on filedocumented in this encounter Care Teams Installer Molding And Trim Relationship Specialty Start Date End Date Rashard Lane MD [address] [place] [address] PCP - General Family Medicine 12/09/19 Juan Miguel Caballero [facility] 05/30/24 04/12/25 Olimpia Turpin APRN.TREE [address] [place] [address] [facility] Family Medicine 10/18/24 05/22/25 Maricruz Valdovinos PA-C [address] [place] [address] [facility] Internal Medicine 10/18/24 11/11/24 Indiana Hein APRN.NICKER AND BREAKER [address] [place] [address] [facility] Family Medicine 06/08/25 documented as of this encounter
--- OUTSIDE RECORDS SUMMARY | 2025-08-26 19:53 | XMS_ITS | Encounter Summary ---
Author Organization [facility] Address [facility] [place] [address] Care Team Providers Care Job Checker Name Role Phone Rashard Lane MD Primary Care Provider [phone] Juan Miguel Caballero [facility] Unavailable Unavailable Olimpia Turpin CONCESSION CASHIER.RAW MATERIAL PLANNER Unavailable Maricruz Valdovinos PA-C Unavailable [phone] Indiana Hein CONCESSION CASHIER.RAW MATERIAL PLANNER Unavailable Source Comments In the event this information is protected by the Federal Confidentiality of Alcohol and Drug AbusePatient Records regulations: The Federal rules restrict any use of the information to criminally investigate or prosecute any alcohol or drug abuse patient.[facility] Encounter Details Date Type Department Care Team (Late st Contact Info) Description 11/28/2022 [facility] [address] [place], [place] [id number] Nesha Williamson MD [address] [place] [address] Updated insurance Social History Tobacco Use Types Packs/Day Years Used Date Smoking Tobacco: Never Smokeless Tobacco: Never Alcohol Use Standard Drinks/Week Comments Not Currently 0 (1 standard drink = 0.6 oz pur e alcohol) occas PHQ-2 Answer Date Recorded PHQ-2 score 0 11/07/2022 [place] Depression Scale Answer Date Recorded [place] Depression Scale Total 1 10/30/2020 The thought of harming myself has occurred to me . Never 10/30/2020 Area Deprivation Index Answer Date Ger rded National Score (1-100), lower number is lower ri sk 89 11/27/2022 State Score (1-10), lower number is lower risk N ot on file 11/27/2022 Data from: https://www.neighborhoodatlas.medicine.[facility].edu/. Last address used for calculation [address] [...] Contact Info) Description 09/30/2025 9:00 AM EST [facility] Hematology/Oncology [address] [place] [address] [place] [address] OCREVUS documented as of this encounter Visit Diagnoses Not on filedocumented in this encounter Additional Health Concerns Infection Onset Date Last Indicated Resolved Time COVID-19 Rule-Out 02/12/2023 02/12/2023 02/13/2023 1:49 AM EDT COVID-19 Confirmed 02/12/2023 02/12/2023 8:51 PM EDT documented as of this encounter Care Teams Job Checker Relationship Specialty Start Date End Date Rashard Lane MD [address] [place] [address] PCP - General Family Medicine 12/09/19 [facility] 04/12/25 Olimpia Turpin, CONCESSION CASHIER.RAW MATERIAL PLANNER [address] [place] [address] Family Resource Coordinator Family Medicine 10/18/24 05/22/25 Maricruz Valdovinos PA-C [address] [place] [address] Family Resource Coordinator Internal Medicine 10/18/24 11/11/24 Indiana Hein, CONCESSION CASHIER.RAW MATERIAL PLANNER [address] [place] [address] Family Resource Coordinator Family Medicine 06/08/25 documented as of this encounter
--- OUTSIDE RECORDS SUMMARY | 2025-08-26 19:53 | XMS_ITS | Clinical Summary ---
Author Organization [facility] Address [address] [facility] [place] [address] Care Team Providers Care Market Research Lead Name Role Phone Sofy Pandya MD Unavailable [phone] Source Comments The following information is NOT included in Care Everywhere downloads:Psychiatric notes, ECG results, Cardiac Rehab notes, Pulmonary Function notes, data from SmartForms (includes but not limited toPregnancy data,audiograms, eye exams, pre-surgical evaluation notes, well-child exam data).[facility] Allergies Active Allergy Reactions Criticality Noted Date Comments Gluten Meal Other 03/19/2019 Constipation Chest pain Boils Stomach upset chest pain, rashes, constipation Lecithin Organic-Soybean Lecithin Other 03/19/2019 More constipated Soy Allergy Headache,Other 11/15/2019 Medications Cholecalciferol 1.25 MG (06867 UT) TABS Take 50,000 Units by mouth once weekly. 0 Active Tmeognxi-Wbt-Kz -FA (Mynatal) CAPS Take by mouth. Activ e ocrelizumab (OCREVUS) 300 MG/10ML SOLN injection by Intravenous Push route. Active senna-docusate (SENOKOT-S) 8.6-50 MG per tablet Take 1 Tablet by mouth. 9 Active Vit-Fe Fumarate-FA (PNV Plus Multivitamin) 27-1 MG TABS Take 1 Tablet by mouth daily. 1 Active polyethylene glycol (GLYCOLAX) 17 GM/SCOOP powder Dissolve 17 g in 8 ounces of liquid and drink. 9 Active melatonin 3 MG TABS tablet Take 3 mg by mouth. 1 Active ketoconazole (NIZORAL) 2 % cream Apply topically. 0 Active Active Problems Problem Noted Date Diagnosed Date Hypoglycemia 03/07/2021 Abnormal antibody titer 01/08/2021 Urge incontinence of urine 07/14/2020 Overview (03/07/2021): . We discussed the pathophysiology of multiple [...] protect her renal function prevent her incontinence Neurogenic bladder 07/14/2020 Overview (03/07/2021): On most recent creatinine was normal. Will obtain renal ultrasound at her convenience to assess for any upper tract changes Multiple sclerosis, primary progressive 01/21/20 20 Gait difficulty 10/06/2019 Constipation 10/06/2019 Optic neuritis 08/21/2019 Overview (03/07/2021): Start Date: 03/2009 Syncope and collapse 12/04/2018 Insomnia 12/04/2018 Bilateral hearing loss 07/14/2018 Somnolence, daytime 07/28/2017 Restless leg syndrome 07/28/2017 Exacerbation of multiple sclerosis 07/04/2011 Overview (03/07/2021): New cervical and brainstem lesions noted on most recent MRI in December of 2019 Start Date: 03/2007 Immunizations Immunization Administration Dates Next Due Tdap (AWS=152) 01/15/2022 Family History Medical History Relation Name Comments Good health Brother 1 Monique Good health Brother 2 Rashard Good health Brother 3 Macaia Prostate cancer Father Diabetes Mellitus Mother Dementia Paternal Grandfather Robin Prostate cancer Paternal Grandfather Robin Dementia Paternal Grandmother Diabetes Mellitus Paternal Grandmother Good health Sister 1 Juan Good health Sister 2 Loulou Good health Sister 3 Druze Relation Name Status Comments Brother 1 Gerlelia Alive Brother 2 Rashard Alive Brother 3 Macaiah Alive Father Alive Mother Alive Paternal Grandfather Robin Alive Paternal Grandmother Sister 1 Juan Alive Sister 2 Loulou Alive Sister 3 Druze Alive Social History Tobacco Use Types Packs/Day [...] Sign Reading Time Taken Comments Blood Pressure 122/85 03/07/2021 3:16 PM EDT Pulse 88 03/07/2021 3:16 PM EDT Temperature 36.7 C (98.1 F) 03/07/2021 3:16 PM EDT Respiratory Rate 16 03/07/2021 3:16 PM EDT Oxygen Saturation 100% 03/07/2021 3:16 PM EDT Inhaled Oxygen Concentration - - Weight 57.9 kg (127 lb 9.6 oz) 03/07/2021 3:16 P M EDT Height 168.9 cm (5' 6.5 ) 03/07/2021 3:16 PM EDT Body Mass Index 20.29 03/07/2021 3:16 PM EDT Plan of Treatment Health Maintenance Due Date Last Done Comments Hepatitis A (HAV) Vaccine (optional start 19+ years) 2004 Hepatitis B (HBV) Vaccine (1 of 3 - 19+ 3-dose series) 2004 HPV Vaccine (optional start 27-45 years) 2012 Pap Smear 03/07/2024 03/07/2021 COVID-19 Vaccine ( - 2023-2 5 season) 2025 Influenza Vaccine (#1) 2025 Mammography 2025 Tetanus (Td or Tdap) Booster 01/16/2032 01/15/2022 Shingles (RZV) Vaccine (1 of 2) 2035 HIV Test Completed 03/07/2021 Tdap Booster Completed 01/15/2022 Hepatitis C Antibody Completed 09/27/2022, 03/07/2021 Pneumococcal Vaccine(s) Aged Out No l onger eligible based on patient's age to complete this topic Procedures Procedure Name Priority Date/Time Associated Diagnosis Comments HIV1 HIV2 AGAB SCRN Routine 03/07/2021 4:50 PM EDT Screening for HIV (human immunodeficiency virus) HEPATITIS C ANTIBODY Routine 03/07/2021 4:50 PM EDT Need for hepatitis C screening test PAP SMEAR Routine 03/07/2021 4:50 PM EDT Encounter for gynecological examination with Papanicolaou smear of cervix from Last 3 Months or Most Recently Relevant to Health Maintenance Results * (ABNORMAL) PAP SMEAR (03/07/2021 4:50 PM EDT) Case Report Gynecologic Cytology Report Case: [id number] Authorizing Provider: Sofy Pandya MD Collected: 03/07/2021 1650 Ordering Location: [facility] Received: 03/08/2021 0755 [employer] C[employer]IAN First Screen: José Luis Ni CT(ASCP) Pathologist: Ernie Mejias MD Specimen: CTP PAP SCREEN, Cervical Thin Prep 03/20/2021 12:53 PM EDT [facility] Specimen Adequacy Satisfactory for evaluation; endocervical/t ransformation zone component present 03/20/2021 12:53 PM EDT [facility] General Categorization Epithelial Cell Abnormality(A) 03/20/2021 12:53 PM EDT S PATHOLOGY LABORATORY Interpretation Atypical squamous cells of undetermined significance (ASC-US) 03/20/2021 12:53 PM EDT [facility] at 1253 EDT Evaluated by: . I certify that I personally conducted the diagnostic evaluation of the above specimen(s) and have rendered the final diagnosis(es). 03/20/2021 12:53 PM EDT [facility] Reflex HPV Perform HPV if Negative or ASCUS 03/20/2021 12:53 PM EDT [facility] Educational Note 03/20/20 12:53 PM EDT [facility] Comment: The Pap smear is a screen test for the detection of precancerous or cancerous lesions. A negative result does not entirely exclude the presence of an abnormality. This ThinPrep pap test was scanned by the ThinPrep Imaging System (mxHero), as well as examined by the board certified family physician and/or Cytopathologist listed above to enhance the sensitivity of this screening test for cervical cancer and precancerous disease. ThinPrep (Cervical Thin Prep) 03/07/2021 4:50 PM EDT 03/08/2021 7:55 AM EDT Sofy Pandya MD EC CP/AP ORDERABLE Final Res ult [facility] [address] [place] [phone] * HIV1 HIV2 AGAB SCRN (03/07/2021 4:50 PM EDT) HIV Ag-Ab Screen Non-React pilar Non-React pilar 03/07/2021 11:13 PM EDT [facility] Comment:No laboratory eviden ce for HIV Infection. Negative result does not rule out acute HIV infection. If acute HIV infection is suspected, recommend ordering an HIV-1 RNA quanitification test. Blood BLOOD SPECIMEN / Unknown Venipuncture / Unknown 03/07/2021 4:50 PM EDT 03/07/2021 9:17 PM EDT Narrative [facility] - 03/07/2021 11:13 PM EDT HIV Information: [place] Rev. code 3701.243(E): This information has been [...] release of HIV test results or diagnoses. Sofy Pandya MD EC HIV/HEP/SYPH TESTING Sharmila l Result [facility] [address] [place] [address] * HEPATITIS C ANTIBODY (03/07/2021 4:50 PM EDT) Hepatitis C Ab Nonreactive Nonreactive 03/07/2021 10:38 PM EDT [facility] Blood BLOOD SPECIMEN / Unknown Venipuncture / Unknown 03/07/2021 4:50 PM EDT 03/07/2021 9:17 PM EDT Sofy WYNN HIV/HEP/SYPH TESTING Sharmila l Result [facility] [address] [place] [address] from Last 3 Months or Most Recently Relevant to Health Maintenance Insurance NON CONTRACT MEDICAID Care Teams Market Research Lead Relationship Specialty Start Date End Date Sofy Pandya MD [address] [place] [phone] Physician Obstetrics/Gynecology 03/16/21
--- OUTSIDE RECORDS SUMMARY | 2025-08-26 19:53 | XMS_ITS | Encounter Summary ---
Author Organization [facility] Address [address] [place] [address] Care Team Providers Care Global Sales Manager Name Role Phone Rashard Lane MD Primary Care Provider [phone] Juan Miguel Caballero [facility] Unavailable Unavailable Olimpia Turpin REGIONAL RECRUITER.AIRPLANE PATROL PILOT Unavailable [phone] Maricruz Valdovinos PA-C Unavailable [phone] [place] Hein REGIONAL RECRUITER.AIRPLANE PATROL PILOT Unavailable [phone] Source Comments In the event this information is protected by the Federal Confidentiality of Alcohol and Drug AbusePatient Records regulations: The Federal rules restrict any use of the information to criminally investigate or prosecute any alcohol or drug abuse patient.[facility] Encounter Details Date Type Department Care Team ([facility] st Contact Info) Description 03/25/2024 Patient Msg Neurology [address] [place] [address] Mickie Medrano, REGIONAL RECRUITER.AIRPLANE PATROL PILOT [address] [place] [address] Sleep visit after visit instructions [...] any clubs o r organizations such as adventism groups, unions, fraternal or athletic groups, or [...] Answer Date Recorded PHQ-2 score 5 03/19/2024 [facility] [place] of Occupat ional Health - Occupational Stress [...] in a penitentiary (including now)? No 12/16/2022 [place] Depression Scale Answer Date Recorded [place] Depression Scale Total 1 10/30/2020 The thought of harming myself has occurred to me . Never 10/30/2020 Area Deprivation Index Answer Date Ger rded National Score (1-100), lower number is lower ri sk 93 07/17/2023 State Score (1-10), lower number is lower risk 9 07/17/2023 Data from: https://www.neighborhoodatlas.medicine.[facility].edu/. Last address used for calculation [address] [...] st Contact Info) Description 09/30/2025 9:00 AM [facility] Hematology/Oncology [address] [place] [address] [place] [address] OCREVUS documented as of this encounter Visit Diagnoses Not on filedocumented in this encounter Care Teams Global Sales Manager Relationship Specialty Start Date End Date Rashard Lane MD [address] [place] [address] PCP - General Family Medicine 12/09/19 Juan Miguel Caballero [facility] 05/30/24 04/12/25 Olimpia Turpin, REGIONAL RECRUITER.AIRPLANE PATROL PILOT [address] [place] [address] Registered Nursing Professor Family Medicine 10/18/24 05/22/25 Maricruz Valdovinos PA-C [facility] [place] [address] Registered Nursing Professor Internal Medicine 10/18/24 11/11/24 Indiana Hein APRN.AIRPLANE PATROL PILOT [address] [place] [address] Registered Nursing Professor Family Medicine 06/08/25 documented as of this encounter
--- OUTSIDE RECORDS SUMMARY | 2025-08-26 19:53 | XMS_ITS | Encounter Summary ---
Author Organization [facility] Address [address] [place] [address] Care Team Providers Care Fretted Instrument Repairer Name Role Phone Rashard Laen MD Primary Care Provider [phone] Juan Miguel Caballero [facility] Unavailable Unavailable Olimpia Turpin INSPECTOR FILTERS.CHAIRPERSON ANESTHESIOLOGY Unavailable [phone] Maricruz Valdovinos PA-C Unavailable [phone] Indiana Hein INSPECTOR FILTERS.CHAIRPERSON ANESTHESIOLOGY Unavailable [phone] Source Comments In the event this information is protected by the Federal Confidentiality of Alcohol and Drug AbusePatient Records regulations: The Federal rules restrict any use of the information to criminally investigate or prosecute any alcohol or drug abuse patient.[facility] Encounter Details Date Type Department Care Team ([facility] st Contact Info) Description 09/06/2022 Patient [facility] [address] [address] Provider, Ccf Appointment Scheduling Social History Tobacco Use Types Packs/Day Years Used Date Smoking Tobacco: Never Smokeless Tobacco: Never Alcohol Use Standard Drinks/Week Comments Not Currently 0 (1 standard drink = 0.6 oz pur e alcohol) occas PHQ-2 Answer Date Recorded PHQ-2 score 0 09/02/2022 [place] Depression Scale Answer Date Recorded [place] Depression Scale Total 1 10/30/2020 The thought of harming myself has occurred to me . Never 10/30/2020 Area Deprivation Index Answer Date Ger rded National Score (1-100), lower number is lower ri sk 59 03/29/2022 State Score (1-10), lower number is lower risk N ot on file 03/29/2022 Data from: https://www.neighborhoodatlas.medicine.[facility]/. Last address used for calculation [address] 03/29/2022 Education Answer Date Recorded [...] Contact Info) Description 09/30/2025 9:00 AM EST [facility] Hematology/Oncology [address] [place] [address] [place] [address] OCREVUS documented as of this encounter Visit Diagnoses Not on filedocumented in this encounter Additional Health Concerns Infection Onset Date Last Indicated Resolved Time COVID-19 Rule-Out 02/12/2023 02/12/2023 02/13/2023 1:49 AM EDT COVID-19 Confirmed 02/12/2023 02/12/2023 8:51 PM EDT documented as of this encounter Care Teams Fretted Instrument Repairer Relationship Specialty Start Date End Date Rashard Lane MD [address] [place] [address] PCP - General Family Medicine 12/09/19 Juan Miguel Caballero [facility] 05/30/24 04/12/25 Olimpia Turpin, INSPECTOR FILTERS.CHAIRPERSON ANESTHESIOLOGY [address] [place] [address] Communications Controller Family Medicine 10/18/24 05/22/25 Maricruz Valdovinos PA-C [address] [place] [address] Communications Controller Internal Medicine 10/18/24 11/11/24 Indiana Hein, INSPECTOR FILTERS.CHAIRPERSON ANESTHESIOLOGY [address] [place] [address] Communications Controller Family Medicine 06/08/25 documented as of this encounter
--- OUTSIDE RECORDS SUMMARY | 2025-08-26 19:53 | XMS_ITS | Encounter Summary ---
Author Organization [facility] Address [address] [place] [address] Care Team Providers Care Slot Supervisor Name Role Phone Rashard Lane MD Primary Care Provider [phone] Juan Miguel Caballero [facility] Unavailable Unavailable Olimpia Turpin FULFILLMENT SPECIALIST.LITHOPRESS OPERATOR Unavailable Maricruz Valdovinos PA-C Unavailable [phone] Indiana Hein FULFILLMENT SPECIALIST.LITHOPRESS OPERATOR Unavailable [phone] Source Comments In the event this information is protected by the Federal Confidentiality of Alcohol and Drug AbusePatient Records regulations: The Federal rules restrict any use of the information to criminally investigate or prosecute any alcohol or drug abuse patient.[facility] Encounter Details Date Type Department Care Team ([facility] Contact Info) Description 03/05/2024 Patient Msg Neurology [address] [place] [address] Provider, Ccf actigraphy watch Social [...] How often do you attend chur or islam services? Never 12/16/2022 Do you belong to any clubs o r organizations such as protestant groups, unions, fraternal or athletic groups, or [...] Answer Date Recorded PHQ-2 score 0 01/21/2024 [facility] Occupat ional Health - Occupational [...] health care facility (including now)? No 12/16/2022 [place] Depression Scale Answer Date Recorded [place] Depression Scale Total 1 10/30/2020 The thought of harming myself has occurred to me . Never 10/30/2020 Area Deprivation Index Answer Date Ger rded National Score (1-100), lower number is lower ri sk 93 07/17/2023 State Score (1-10), lower number is lower risk 9 07/17/2023 Data from: https://www.neighborhoodatlas.medicine.[facility].edu/. Last [...] st Contact Info) Description 09/30/2025 9:00 AM [facility] Center Hematology/Oncology [address] [place] [address] [place] [address] OCREVUS documented as of this encounter Visit Diagnoses Not on filedocumented in this encounter Care Teams Slot Supervisor Relationship Specialty Start Date End Date Rashard Lane MD [address] [place] [address] PCP - General Family Medicine 12/09/19 Juan Miguel Caballero [facility] 05/30/24 04/12/25 Olimpia Turpin, FULFILLMENT SPECIALIST.LITHOPRESS OPERATOR [address] [place] [address] Novelty Maker Family Medicine 10/18/24 05/22/25 Maricruz Valdovinos PA-C [address] [place] [address] Novelty Maker Internal Medicine 10/18/24 11/11/24 Indiana Hein APRN.[facility] [address] [place] [address] Novelty Maker Family Medicine 06/08/25 documented as of this encounter
--- OUTSIDE RECORDS SUMMARY | 2025-08-26 19:53 | XMS_ITS | Clinical Summary ---
Author Organization [facility] Address [address] [place] [address] Phone Care Team Providers Care Mold Shaker Name Role Phone Rashard Lane MD Primary Care Provider Nataly Tripathi OPERATING ROOM SCHEDULER-HUMAN SERVICES CARE SPECIALIST Unavailable [phone] Allergies No known active allergies Active Problems Problem Noted Date Diagnosed Date Poor growth affecting management of mother in third trimester 10/05/2024 Assessment & Plan (10/05/2024 3:50 PM EST): Patient was counseled about the common etiologies of growth restriction. Maternal factors include AMA, autoimmune disease (MS), and history of FGR are all risk factors for growth restriction. Genetic and factors are less likely when FGR is diagnosed this late in . Placental pathology is not available for review. Short cervix affecting 06/16/2024 Multiple sclerosis affecting in second trimester 06/16/2024 Social History Tobacco Use Types Packs/Day [...] (1 of 1 - Standard series) 1986 Hepatitis B Vaccines (1 of 3 - 19+ 3-dose series) 2004 HPV/Cotest 2006 HPV Vaccines (1 - 3-dose standard series) 2012 Cervical Cancer Screening 03/07/2024 Pap Smear 03/07/2024 03/07/2021, 07/04/2011 Influenza Vaccine (#1) 2025 11/20/2023 COVID-19 Vaccine (1 - 2024-2 6 season) 2025 Mammogram 2025 03/22/2024, 03/17/2024 DTaP/Tdap/Td Vaccines (2 - T d or [...] patient's age to complete this topic Insurance [employer] MEDICA[id number] Care Teams Mold Shaker Relationship Specialty [place] [address] [place] [address] PCP - General 12/13/19 Nataly Tripathi, OPERATING ROOM SCHEDULER-HUMAN SERVICES CARE SPECIALIST [address] [place] [address] Director Imaging Obstetrics 06/16/24
--- OUTSIDE RECORDS SUMMARY | 2025-08-26 19:53 | XMS_ITS | Encounter Summary ---
Author Organization [facility] Address [address] [place] [address] Care Team Providers Care Roof Fitter Name Role Phone Rashard Lane MD Primary Care Provider [phone] Juan Miguel Caballero [facility] Unavailable Unavailable Olimpia Turpin SOCIAL SCIENCE RESEARCH ASSISTANT.PARTS BACK COUNTER MAN Unavailable Maricruz Valdovinos PA-C Unavailable [phone] [place] Hein SOCIAL SCIENCE RESEARCH ASSISTANT.PARTS BACK COUNTER MAN Unavailable Source Comments In the event this information is protected by the Federal Confidentiality of Alcohol and Drug AbusePatient Records regulations: The Federal rules restrict any use of the information to criminally investigate or prosecute any alcohol or drug abuse patient.[facility] Encounter Details Date Type Department Care Team ([facility] Contact Info) Description 06/21/2024 Patient Msg Neurology [address] [place] [id number] Provider, Ccf CONFIRM Social History Tobacco Use [...] often do you attend chur ch or mosque services? Never 12/16/2022 Do you belong to any clubs o r organizations such as druze groups, unions, fraternal or athletic groups, or [...] Answer Date Recorded PHQ-2 score 0 05/23/2024 [facility] - Occupational Stress Questionnaire Answer Date [...] a group home (including now)? No 12/16/2022 [place] Depression Scale Answer Date Recorded [place] Depression Scale Total 1 10/30/2020 The thought of harming myself has occurred to me . Never 10/30/2020 Area Deprivation Index Answer Date Ger rded National Score (1-100), lower number is lower ri sk 93 07/17/2023 State Score (1-10), lower number is lower risk 9 07/17/2023 Data from: https://www.neighborhoodatlas.medicine.[facility].edu/. Last address used for calculation [address] [...] st Contact Info) Description 09/30/2025 9:00 AM [facility] Hematology/Oncology [address] [place] [address] [place] [address] OCREVUS documented as of this encounter Visit Diagnoses Not on filedocumented in this encounter Care Teams Roof Fitter Relationship Specialty Start Date End Date Rashard Lane MD [address] [place] [address] PCP - General Family Medicine 12/09/19 Juan Miguel Caballero [facility] 05/30/24 04/12/25 Olimpia Turpin APRN.PARTS BACK COUNTER MAN [address] [place] [address] Punch Card Operator Family Medicine 10/18/24 05/22/25 Maricruz Valdovinos PA-C [address] [place] [address] Punch Card Operator Internal Medicine 10/18/24 11/11/24 Indiana Hein APRN.PARTS BACK COUNTER MAN [address] [place] [address] Punch Card Operator Family Medicine 06/08/25 documented as of this encounter
--- OUTSIDE RECORDS SUMMARY | 2025-08-26 19:53 | XMS_ITS | Encounter Summary ---
Author Organization [facility] Address [address] [place] [address] Care Team Providers Care Sponge Hooker Name Role Phone Rashard Lane MD Primary Care Provider [phone] Juan Miguel Caballero [facility] Unavailable Unavailable Olimpia Turpin ANIMAL TRAPPER.DIRECTOR OF OPERATIONS SUPPORT Unavailable Maricruz Valdovinos PA-C Unavailable [phone] [place] Hein ANIMAL TRAPPER.DIRECTOR OF OPERATIONS SUPPORT Unavailable Source Comments In the event this information is protected by the Federal Confidentiality of Alcohol and Drug AbusePatient Records regulations: The Federal rules restrict any use of the information to criminally investigate or prosecute any alcohol or drug abuse patient.[facility] Encounter Details Date Type Department Care Team ([facility] st Contact Info) Description 07/26/2022 Patient Msg Internal Medicine [address] [place] [address] Provider, Ccf Additional Therapy Visits Social History Tobacco Use Types Packs/Day Years Used Date Smoking Tobacco: Never Smokeless Tobacco: Never Alcohol Use Standard Drinks/Week Comments Not Currently 0 (1 standard drink = 0.6 oz pur e alcohol) occas PHQ-2 Answer Date Recorded PHQ-2 score 0 02/08/2021 [place] Depression Scale Answer Date Recorded [place] Depression Scale Total 1 10/30/2020 The thought of harming myself has occurred to me . Never 10/30/2020 Area Deprivation Index Answer Date Ger rded National Score (1-100), lower number is lower ri sk 59 03/29/2022 State Score (1-10), lower number is lower risk N ot on file 03/29/2022 Data from: https://www.neighborhoodatlas.medicine.[facility]/. Last address used for calculation [address] 03/29/2022 Education Answer Date Recorded [...] Contact Info) Description 09/30/2025 9:00 AM EST [facility] Center Hematology/Oncology [address] [place] [address] [place] [address] OCREVUS documented as of this encounter Visit Diagnoses Not on filedocumented in this encounter Additional Health Concerns Infection Onset Date Last Indicated Resolved Time COVID-19 Rule-Out 02/12/2023 02/12/2023 02/13/2023 1:49 AM EDT COVID-19 Confirmed 02/12/2023 02/12/2023 8:51 PM EDT documented as of this encounter Care Teams Sponge Hooker Relationship Specialty Start Date End Date Rashard Lane MD [address] [place] [address] PCP - General Family Medicine 12/09/19 Juan Miguel Caballero [facility] 05/30/24 04/12/25 Olimpia Turpin, ANIMAL TRAPPER.DIRECTOR OF OPERATIONS SUPPORT [address] [place] [address] Resident Care Associate Family Medicine 10/18/24 05/22/25 Maricruz Valdovinos PA-C [address] [place] [address] Resident Care Associate Internal Medicine 10/18/24 11/11/24 [place] Hein, ANIMAL TRAPPER.DIRECTOR OF OPERATIONS SUPPORT [address] [place] [address] Resident Care Associate Family Medicine 06/08/25 documented as of this encounter
--- OUTSIDE RECORDS SUMMARY | 2025-08-26 19:53 | XMS_ITS | Encounter Summary ---
Author Organization [facility] Address [address] [place] [address] Care Team Providers Care Platemaker Name Role Phone Rashard Lane MD Primary Care Provider [phone] Juan Miguel Caballero [facility] Unavailable Unavailable Olimpia Turpin ENVIRONMENTAL PROTECTION FORESTER.PLUMBING FOREMAN Unavailable Maricruz Valdovinos PA-C Unavailable [phone] [place] Hein ENVIRONMENTAL PROTECTION FORESTER.PLUMBING FOREMAN Unavailable + [phone] Source Comments In the event this information is protected by the Federal Confidentiality of Alcohol and Drug AbusePatient Records regulations: The Federal rules restrict any use of the information to criminally investigate or prosecute any alcohol or drug abuse patient.[facility] Encounter Details Date Type Department Care Team ([facility] st Contact Info) Description 01/05/2024 Patient [facility] [address] [address] Provider, Ccf Appointment Social History Tobacco Use [...] often do you attend chur ch or anglican services? Never 12/16/2022 Do you belong to [...] Answer Date Recorded PHQ-2 score 0 08/11/2023 [facility] - Occupational Stress Questionnaire Answer [...] a nursing home (including now)? No 12/16/2022 [place] Depression Scale Answer Date Recorded [place] Depression Scale Total 1 10/30/2020 The thought of harming myself has occurred to me . Never 10/30/2020 Area Deprivation Index Answer Date Ger rded National Score (1-100), lower number is lower ri sk 93 07/17/2023 State Score (1-10), lower number is lower risk 9 07/17/2023 Data from: https://www.neighborhoodatlas.medicine.[facility].edu/. Last address used for calculation [address] [...] st Contact Info) Description 09/30/2025 9:00 AM [facility] Hematology/Oncology [address] [place] [address] [place] [address] OCREVUS documented as of this encounter Visit Diagnoses Not on filedocumented in this encounter Care Teams Platemaker Relationship Specialty Start Date End Date Rashard Lane MD [address] [place] [address] PCP - General Family Medicine 12/09/19 Juan Miguel Caballero [facility] 05/30/24 04/12/25 Olimpia Turpin APRN.PLUMBING FOREMAN [address] [place] [address] Lumber Grader Family Medicine 10/18/24 05/22/25 Maricruz Valdovinos PA-C [address] [place] [address] Lumber Grader Internal Medicine 10/18/24 11/11/24 Indiana Hein APRN.PLUMBING FOREMAN [address] [place] [address] Lumber Grader Family Medicine 06/08/25 documented as of this encounter
--- OUTSIDE RECORDS SUMMARY | 2025-08-26 19:53 | XMS_ITS | Encounter Summary ---
Author Organization [facility] Address [address] [place] [address] Care Team Providers Care Outpatient Case Manager Name Role Phone Sofy Pandya MD Unavailable [phone] Encounter Details Date Type Department Care Team (Late st Contact Info) Description 02/07/2022 Abstract PATIENT ACUITY SCORE Social History Tobacco [...] documented as of this encounter Care Teams Outpatient Case Manager Relationship Specialty Start Date End Date Sofy Pandya MD [address] [place] [address] Physician Obstetrics/Gynecology 03/16/21 documented as of this encounter
--- OUTSIDE RECORDS SUMMARY | 2025-08-26 19:53 | XMS_ITS | Encounter Summary ---
Author Organization [facility] Address [address] [place] [address] Care Team Providers Care Cable Cutter And Swager Name Role Phone Rashard Lane MD Primary Care Provider [phone] Juan Miguel Caballero [facility] Unavailable Unavailable Olimpia Turpin PHOTOGRAPHIC RESTORER.BLOOD BANK CALENDAR CONTROL CLERK Unavailable Maricruz Valdovinos PA-C Unavailable [phone] [place] Hein PHOTOGRAPHIC RESTORER.BLOOD BANK CALENDAR CONTROL CLERK Unavailable Source Comments In the event this information is protected by the Federal Confidentiality of Alcohol and Drug AbusePatient Records regulations: The Federal rules restrict any use of the information to criminally investigate or prosecute any alcohol or drug abuse patient.[facility] Encounter Details Date Type Department Care Team (Late st Contact Info) Description 08/08/2022 Patient [facility] Chris Gary [address] [place], [place] [id number] Mirna Wilson LISW [address] [facility]/[address] [place], [place] [id number] Social Work Social History Tobacco Use Types Packs/Day Years Used Date Smoking Tobacco: Never Smokeless Tobacco: Never Alcohol Use Standard Drinks/Week Comments Not Currently 0 (1 standard drink = 0.6 oz pur e alcohol) occas PHQ-2 Answer Date Recorded PHQ-2 score 2 08/06/2022 [place] Depression Scale Answer Date Recorded [place] Depression Scale Total 1 10/30/2020 The thought of harming myself has occurred to me . Never 10/30/2020 Area Deprivation Index Answer Date Ger rded National Score (1-100), lower number is lower ri sk 59 03/29/2022 State Score (1-10), lower number is lower risk N ot on file 03/29/2022 Data from: https://www.neighborhoodatlas.medicine.[facility].edu/. Last address used for calculation [address] 03/29/2022 Education Answer Date Recorded [...] st Contact Info) Description 09/30/2025 9:00 AM [facility] Center Hematology/Oncology [address] [place] [address] [place] [address] OCREVUS documented as of this encounter Visit Diagnoses Not on filedocumented in this encounter Additional Health Concerns Infection Onset Date Last Indicated Resolved Time COVID-19 Rule-Out 02/12/2023 02/12/2023 02/13/2023 1:49 AM EDT COVID-19 Confirmed 02/12/2023 02/12/2023 8:51 PM EDT documented as of this encounter Care Teams Cable Cutter And Swager Relationship Specialty Start Date End Date Rashard Lane MD [address] [place] [address] PCP - General Family Medicine 12/09/19 Juan Miguel Caballero [facility] 05/30/24 04/12/25 Olimpia Turpin, PHOTOGRAPHIC RESTORER.BLOOD BANK CALENDAR CONTROL CLERK [address] [place] [address] Engineer Chief Family Medicine 10/18/24 05/22/25 Maricruz Valdovinos PA-C [address] [place] [address] Engineer Chief Internal Medicine 10/18/24 11/11/24 Indiana Hein, CYNTHIA.BLOOD BANK CALENDAR CONTROL CLERK [address] [place] [address] Engineer Chief Family Medicine 06/08/25 documented as of this encounter
--- OUTSIDE RECORDS SUMMARY | 2025-08-26 19:53 | XMS_ITS | Encounter Summary ---
Author Organization [facility] Address [address] [place] [address] Care Team Providers Care Mattress Finisher Name Role Phone Rashard Lane MD Primary Care Provider [phone] Juan Miguel Caballero [facility] Unavailable Unavailable Olimpia Turpin TRUCK SERVICE TECHNICIAN.LIVESTOCK BROKER Unavailable Maricruz Valdovinos PA-C Unavailable [phone] [place] Hein TRUCK SERVICE TECHNICIAN.LIVESTOCK BROKER Unavailable +- [phone] Source Comments In the event this information is protected by the Federal Confidentiality of Alcohol and Drug AbusePatient Records regulations: The Federal rules restrict any use of the information to criminally investigate or prosecute any alcohol or drug abuse patient.[facility] Encounter Details Date Type Department Care Team ([facility] Contact Info) Description 01/26/2024 Patient Msg Neurology [address] [id number] Provider, Ccf Please Call [employer] Social History Tobacco Use Types Packs/Day Years [...] How often do you attend chur or confucianism services? Never 12/16/2022 Do you belong to any clubs o r organizations such as denominational groups, unions, fraternal [...] Answer Date Recorded PHQ-2 score 0 01/21/2024 [facility] - [...] a care home (including now)? No 12/16/2022 [place] Depression Scale Answer Date Recorded [place] Depression Scale Total 1 10/30/2020 The thought of harming myself has occurred to me . Never 10/30/2020 Area Deprivation Index Answer Date Ger rded National Score (1-100), lower number is lower ri sk 93 07/17/2023 State Score (1-10), lower number is lower risk 9 07/17/2023 Data from: https://www.neighborhoodatlas.medicine.[facility].edu/. Last address used for calculation [address] [...] Contact Info) Description 09/30/2025 9:00 AM [facility] Center Hematology/Oncology [address] [place] [address] [place] [address] OCREVUS documented as of this encounter Visit Diagnoses Not on filedocumented in this encounter Care Teams Mattress Finisher Relationship Specialty Start Date End Date Rashard Lane MD [address] [place] [address] PCP - General Family Medicine 12/09/19 Juan Miguel Caballero [facility] 05/30/24 04/12/25 Olimpia Turpin, TRUCK SERVICE TECHNICIAN.LIVESTOCK BROKER [address] [place] [address] Skip Hoist Operator Family Medicine 10/18/24 05/22/25 Maricruz Valdovinos PA-C [address] [place] [address] Skip Hoist Operator Internal Medicine 10/18/24 11/11/24 Indiana Hein APRN.[facility] [address] [place] [address] Skip Hoist Operator Family Medicine 06/08/25 documented as of this encounter
--- OUTSIDE RECORDS SUMMARY | 2025-08-26 19:53 | XMS_ITS | Encounter Summary ---
Author Organization [facility] Address [address] [place] [address] Care Team Providers Care Mobility Developer Name Role Phone Rashard Lane MD Primary Care Provider [phone] Juan Miguel Caballero [facility] Unavailable Unavailable Olimpia Turpin JOINT CLEANING MACHINE OPERATOR.SAWMILL MOULDER OPERATOR Unavailable Maricruz Valdovinos PA-C Unavailable [phone] [place] Hein JOINT CLEANING MACHINE OPERATOR.SAWMILL MOULDER OPERATOR Unavailable + [phone] Source Comments In the event this information is protected by the Federal Confidentiality of Alcohol and Drug AbusePatient Records regulations: The Federal rules restrict any use of the information to criminally investigate or prosecute any alcohol or drug abuse patient.[facility] Encounter Details Date Type Department Care Team ([facility] st Contact Info) Description 12/10/2022 Patient Msg Rheumatology [address] [facility] [place] [address] Provider, Ccf A change in provider schedule Social History Tobacco Use Types Packs/Day Years Used Date Smoking Tobacco: Never Smokeless Tobacco: Never Alcohol Use Standard Drinks/Week Comments Not Currently 0 (1 standard drink = 0.6 oz pur e alcohol) occas PHQ-2 Answer Date Recorded PHQ-2 score 2 12/12/2022 [place] Depression Scale Answer Date Recorded [place] Depression Scale Total 1 10/30/2020 The thought of harming myself has occurred to me . Never 10/30/2020 Area Deprivation Index Answer Date Ger rded National Score (1-100), lower number is lower ri sk 89 11/27/2022 State Score (1-10), lower number is lower risk N ot on file 11/27/2022 Data from: https://www.neighborhoodatlas.medicine.[facility]/. Last address used for calculation [address] 11/27/2022 Education Answer Date Recorded What [...] Contact Info) Description 09/30/2025 9:00 AM EST [facility] Center Hematology/Oncology [address] [place] [address] [place] [address] OCREVUS documented as of this encounter Visit Diagnoses Not on filedocumented in this encounter Additional Health Concerns Infection Onset Date Last Indicated Resolved Time COVID-19 Rule-Out 02/12/2023 02/12/2023 02/13/2023 1:49 AM EDT COVID-19 Confirmed 02/12/2023 02/12/2023 8:51 PM EDT documented as of this encounter Care Teams Mobility Developer Relationship Specialty Start Date End Date Rashard Lane MD [address] [place] [address] PCP - General Family Medicine 12/09/19 Juan Miguel Caballero [facility] 05/30/24 04/12/25 Olimpia Turpin, JOINT CLEANING MACHINE OPERATOR.SAWMILL MOULDER OPERATOR [address] [place] [address] First Officer And Flight Instructor Family Medicine 10/18/24 05/22/25 Maricruz Valdovinos PA-C [address] [place] [address] First Officer And Flight Instructor Internal Medicine 10/18/24 11/11/24 [place] Hein, JOINT CLEANING MACHINE OPERATOR.SAWMILL MOULDER OPERATOR [address] [place] [address] First Officer And Flight Instructor Family Medicine 06/08/25 documented as of this encounter
--- OUTSIDE RECORDS SUMMARY | 2025-08-26 19:53 | XMS_ITS | Encounter Summary ---
Author Organization [facility] Address [address] [place] [address] Care Team Providers Care Streetsweeper Operator Name Role Phone Rashard Lane MD Primary Care Provider [phone] Juan Miguel Caballero [facility] Unavailable Unavailable Olimpia Turpin CUPOLA TENDER.CRANE MANAGER Unavailable Maricruz Valdovinos PA-C Unavailable [phone] [place] Hein CUPOLA TENDER.CRANE MANAGER Unavailable + [phone] Source Comments In the event this information is protected by the Federal Confidentiality of Alcohol and Drug AbusePatient Records regulations: The Federal rules restrict any use of the information to criminally investigate or prosecute any alcohol or drug abuse patient.[facility] Encounter Details Date Type Department Care Team ([facility] Contact Info) Description 01/17/2024 [place] [address] Provider, Ccf MRI Screening Questionnaire Completion Required [...] often do you attend chur ch or zoroastrianism services? Never 12/16/2022 Do you belong to any clubs o r organizations such as mandaen groups, unions, fraternal or athletic groups, or [...] Answer Date Recorded PHQ-2 score 0 01/21/2024 [facility] [...] in a alf (including now)? No 12/16/2022 [place] Depression Scale Answer Date Recorded [place] Depression Scale Total 1 10/30/2020 The thought of harming myself has occurred to me . Never 10/30/2020 Area Deprivation Index Answer Date Ger rded National Score (1-100), lower number is lower ri sk 93 07/17/2023 State Score (1-10), lower number is lower risk 9 07/17/2023 Data from: https://www.neighborhoodatlas.medicine.[facility].edu/. Last address used for calculation [address] [...] st Contact Info) Description 09/30/2025 9:00 AM [facility] Center Hematology/Oncology [address] [place] [address] [place] [address] OCREVUS documented as of this encounter Visit Diagnoses Not on filedocumented in this encounter Care Teams Streetsweeper Operator Relationship Specialty Start Date End Date Rashard Lane MD [address] [place] [address] PCP - General Family Medicine 12/09/19 Juan Miguel Caballero [facility] 05/30/24 04/12/25 Olimpia Turpin, CUPOLA TENDER.CRANE MANAGER [address] [place] [address] Floor Attendant Family Medicine 10/18/24 05/22/25 Maricruz Valdovinos PA-C [address] [place] [address] [facility] Internal Medicine 10/18/24 11/11/24 Indiana Hein, CYNTHIA.[facility] [address] [place] [address] [facility] Family Medicine 06/08/25 documented as of this encounter
--- OUTSIDE RECORDS SUMMARY | 2025-08-26 19:53 | XMS_ITS | Encounter Summary ---
Author Organization [facility] Address [address] [place] [address] Care Team Providers Care Receiver Setter Name Role Phone Rashard Lane MD Primary Care Provider [phone] Juan Miguel Caballero [facility] Unavailable Unavailable Olimpia Turpin COOLER SERVICE SUPERVISOR.UNIVERSITY RELATIONS RECRUITER Unavailable [phone] Maricruz Valdovinos PA-C Unavailable [phone] [place] Hein COOLER SERVICE SUPERVISOR.UNIVERSITY RELATIONS RECRUITER Unavailable Source Comments In the event this information is protected by the Federal Confidentiality of Alcohol and Drug AbusePatient Records regulations: The Federal rules restrict any use of the information to criminally investigate or prosecute any alcohol or drug abuse patient.[facility] Encounter Details Date Type Department Care Team (Late st Contact Info) Description 11/08/2022 Get Medical Advice Ophthalmology [address] [place], [place] [id number] Gilson Ornelas, OD [address] [address] [place], [place] [id number] Glasses filled Social History Tobacco Use Types Packs/Day Years Used Date Smoking Tobacco: Never Smokeless Tobacco: Never Alcohol Use Standard Drinks/Week Comments Not Currently 0 (1 standard drink = 0.6 oz pur e alcohol) occas PHQ-2 Answer Date Recorded PHQ-2 score 0 11/07/2022 [place] Depression Scale Answer Date Recorded [place] Depression Scale Total 1 10/30/2020 The thought of harming myself has occurred to me . Never 10/30/2020 Area Deprivation Index Answer Date Ger rded National Score (1-100), lower number is lower ri sk 59 03/29/2022 State Score (1-10), lower number is lower risk N ot on file 03/29/2022 Data from: https://www.neighborhoodatlas.medicine.[facility].edu/. Last address used for calculation [address] 03/29/2022 Education Answer Date Recorded [...] Contact Info) Description 09/30/2025 9:00 AM EST [facility] Center Hematology/Oncology [address] [place] [address] [place] [address] OCREVUS documented as of this encounter Visit Diagnoses Not on filedocumented in this encounter Additional Health Concerns Infection Onset Date Last Indicated Resolved Time COVID-19 Rule-Out 02/12/2023 02/12/2023 02/13/2023 1:49 AM EDT COVID-19 Confirmed 02/12/2023 02/12/2023 8:51 PM EDT documented as of this encounter Care Teams Receiver Setter Relationship Specialty Start Date End Date Rashard Lane MD [address] [place] [address] PCP - General Family Medicine 12/09/19 [facility] 04/12/25 Olimpia Turpin, COOLER SERVICE SUPERVISOR.UNIVERSITY RELATIONS RECRUITER [address] [place] [address] Civil Defense Director Family Medicine 10/18/24 05/22/25 Maricruz Valdovinos PA-C [address] [place] [address] Civil Defense Director Internal Medicine 10/18/24 11/11/24 [place] Hein, COOLER SERVICE SUPERVISOR.UNIVERSITY RELATIONS RECRUITER [address] [facility] [place] [address] Civil Defense Director Family Medicine 06/08/25 documented as of this encounter
--- OUTSIDE RECORDS SUMMARY | 2025-08-26 19:53 | XMS_ITS | Encounter Summary ---
Author Organization [facility] Address [address] [place] [address] Care Team Providers Care Configurator Name Role Phone Rashard Lane MD Primary Care Provider [phone] Juan Miguel Caballero [facility] Unavailable Unavailable Olimpia Turpin FAGOTER.INSURANCE CLAIMS ASSISTANT Unavailable Maricruz Valdovinos PA-C Unavailable [phone] Indiana Hein FAGOTER.INSURANCE CLAIMS ASSISTANT Unavailable Source Comments In the event this information is protected by the Federal Confidentiality of Alcohol and Drug AbusePatient Records regulations: The Federal rules restrict any use of the information to criminally investigate or prosecute any alcohol or drug abuse patient.[facility] Encounter Details Date Type Department Care Team ([facility] st Contact Info) Description 03/05/2024 Abstract Neurology [address] [place] [address] Main, Sleep Center [address] [place] [address] Social History Tobacco Use Types [...] How often do you attend chur or cheondoism services? Never 12/16/2022 Do you belong to any clubs o r organizations such as oriental orthodox groups, unions, [...] Answer Date Recorded PHQ-2 score 0 01/21/2024 [facility] Occupat ional Health - Occupational [...] place to sleep or slept in a chcf (including now)? No 12/16/2022 [place] Depression Scale Answer Date Recorded [place] Depression Scale Total 1 10/30/2020 The thought of harming myself has occurred to me . Never 10/30/2020 Area Deprivation Index Answer Date Ger rded National Score (1-100), lower number is lower ri sk 93 07/17/2023 State Score (1-10), lower number is lower risk 9 07/17/2023 Data from: https://www.neighborhoodatlas.medicine.[facility].edu/. Last address used for calculation [address] [...] st Contact Info) Description 09/30/2025 9:00 AM [facility] Hematology/Oncology [address] [place] [address] [place] [address] OCREVUS documented as of this encounter Visit Diagnoses Not on filedocumented in this encounter Care Teams Configurator Relationship Specialty Start Date End Date Rashard Lane MD [address] [place] [address] PCP - General Family Medicine 12/09/19 Juan Miguel Caballero [facility] 05/30/24 04/12/25 Olimpia Turpin, FAGOTER.INSURANCE CLAIMS ASSISTANT [address] [place] [address] [facility] 10/18/24 05/22/25 Maricruz Valdovinos PA-C [employer] [place] [address] [facility] Internal Medicine 10/18/24 11/11/24 Indiana Hein APRN.INSURANCE CLAIMS ASSISTANT [address] [place], [place] [id number] [facility] Family Medicine 06/08/25 documented as of this encounter
--- OUTSIDE RECORDS SUMMARY | 2025-08-26 19:53 | XMS_ITS | Encounter Summary ---
Author Organization [facility] Address [address] [place] [address] Care Team Providers Care Product Marketer Name Role Phone Rashard Lane MD Primary Care Provider [phone] Juan Miguel Caballero [facility] Unavailable Unavailable Olimpia Turpin ELECTORAL OFFICER.CHIEF BUSINESS OFFICER Unavailable [phone] Maricruz Valdovinos PA-C Unavailable [phone] Indiana Hein ELECTORAL OFFICER.CHIEF BUSINESS OFFICER Unavailable Source Comments In the event this information is protected by the Federal Confidentiality of Alcohol and Drug AbusePatient Records regulations: The Federal rules restrict any use of the information to criminally investigate or prosecute any alcohol or drug abuse patient.[facility] Encounter Details Date Type Department Care Team ([facility] Contact Info) Description 06/17/2024 Patient Msg Neurology [address] [place] [id number] Provider, Ccf CONFIRM Social History Tobacco Use [...] Date Recorded PHQ-2 score 0 05/23/2024 [facility] - Occupational Stress Questionnaire Answer Date [...] in a prison (including now)? No 12/16/2022 [place] Depression Scale Answer Date Recorded [place] Depression Scale Total 1 10/30/2020 The thought of harming myself has occurred to me . Never 10/30/2020 Area Deprivation Index Answer Date Ger rded National Score (1-100), lower number is lower ri sk 93 07/17/2023 State Score (1-10), lower number is lower risk 9 07/17/2023 Data from: https://www.neighborhoodatlas.medicine.[facility].edu/. Last address used for calculation [address] [...] st Contact Info) Description 09/30/2025 9:00 AM [facility] Hematology/Oncology [address] [place] [address] [place] [address] OCREVUS documented as of this encounter Visit Diagnoses Not on filedocumented in this encounter Care Teams Product Marketer Relationship Specialty Start Date End Date Rashard Lane MD [address] [place] [address] PCP - General Family Medicine 12/09/19 Juan Miguel Caballero [facility] 05/30/24 04/12/25 Olimpia Turpin APRN.CHIEF BUSINESS OFFICER [address] [place] [address] Outside Sales Engineer Family Medicine 10/18/24 05/22/25 Maricruz Valdovinos PA-C [address] [place] [address] Outside Sales Engineer Internal Medicine 10/18/24 11/11/24 Indiana Hein APRN.CHIEF BUSINESS OFFICER [address] [place] [address] Outside Sales Engineer Family Medicine 06/08/25 documented as of this encounter
--- OUTSIDE RECORDS SUMMARY | 2025-08-26 19:53 | XMS_ITS | Clinical Summary ---
Author Organization [facility] Address [address] [place], [place] [id number] Care Team Providers Care Coat Room Attendant Name Role Phone Rashard Lane MD Primary Care Provider [phone] [place] Hein APRN.DIRECTOR OF PHYSICAL EDUCATION Unavailable [phone] Allergies Active Allergy Reactions Criticality Noted Date Comments Gluten Other: See Comments,Hives,Itching 03/19/2019 chest pain, rashes, constipation Other reaction(s): Other (See Comments) Constipation Chest pain Boils Stomach upset chest pain, rashes, constipation Lecithin, Soy GI Upset,Unknown 08/14/2022 Soy Intolerance 11/15/2019 Other reaction(s): Headaches, Other (See Comments) Medications * This document contains information received from the source organization and may not represent a complete record from that organization. fluticasone (FLONASE) 50 mcg/actuation nasal spray Use 1 [place] in each nostril once daily. 1 g 5 0 Active VITAMIN B COMPLEX ORAL Take by mouth. Active tiZANidine (ZANAFLEX) 2 mg tabletIndications: Multiple sclerosis Take 1 tablet by mouth every 8 hours as needed. 90 tablet 3 3 Active ketoconazole (NIZORAL) 2 % cream Apply to affected area once daily. Apply qd 30 g 3 3 Active vitamin B complex with C-FA-CU-ZN renal vitamins (DIATX ZN) 5-1.5-25 mg tab Take by mouth every 24 hours. Active FERROUS SULFATE ORAL Take by mouth every 24 hours. Active multivitamin with minerals (MULTIPLE VITAMIN-MINERALS) tablet Take 1 tablet by mouth every 24 hours. Active ketoconazole (NIZORAL) 2 % shampoo 2-3 times weekly as body wash 125 mL 11 4 Active magnesium oxide (MAG-OX) 400 mg (241.3 mg magnesium) tabletIndications: Multiple sclerosis,Spastici ty,Constipation, unspecified constipation type Take 1 tablet by mouth daily at bedtime. 30 tablet 5 4 Active cholecalciferol (VITAMIN D-3) 5,000 unit tabIndications:Mul tiple sclerosis Take 1 tablet by mouth once daily. 90 tablet 3 4 Active methylPREDNISolone (MEDROL DOSE-PACK) 4 mg Dose-Pack Day 1: 6 tablets Day 2: 5 tablets Day 3: 4 tablets Day 4: 3 tablets Day 5: 2 tablets Day 6: 1 tablet 4 Active ergocalciferol 50,000 unit capsule (VITAMIN D2, DRISDOL)Indication s:Multiple sclerosis,Vitamin D deficiency TAKE 1 CAPSULE BY MOUTH ONCE EVERY WEEK 12 capsule 3 4 Active M-MIKE PLUS 27 mg iron- 1 mg Take 1 tablet by mouth once daily. 5 Active ketotifen fumarate (ZADITOR) 0.025 % (0.035 %) ophthalmic solutionIndication s:Allergic conjunctivitis of both eyes Use 1 drop in both eyes two times a day. 5 mL 1 5 Active LOTEMAX 0.5 % eye ointment Apply small amount to eyelid at bedtime for 3 nights in a row then use as needed but sparingly. 5 Active QUEtiapine (SEROQUEL) 25 mg tablet May take 1-4 tablets by mouth at bedtime as needed. May also take 1-3 tablets once daily as needed. 210 tablet 2 5 Active QUEtiapine (SEROQUEL) 25 mg tabletIndications: Insomnia due to medical condition Take 2-3 tablets by mouth daily at bedtime. May also take 1 tablet once daily as needed. 120 tablet 2 5 025 Discontin ued(Hartmann ing Therapy/D knik Form) Active Problems Problem Noted Date Diagnosed Date Hypoferremia 08/02/2025 Mycoplasma infection 08/02/2025 Dry eyes 04/25/2025 Blepharitis of upper and lower eyelids of both e yes 04/25/2025 Foreign body of right cornea 03/14/2025 Right hip pain 09/03/2024 Abnormal antibody titer [...] Ovarian torsion 04/14/2018 Restless leg syndrome 07/28/2017 Resolved Problems Problem Noted Date Diagnosed Date [...] collapse 12/04/2018 023 Obstructive sleep apnea 07/28/2017/05/2023 Overview (04/17/2021): Updating Deprecated Diagnoses Somnolence, daytime 07/28/2017 04/20/20 21 Encounters * This document contains information received from the source organization and may not represent a complete record from that organization. Date Type Department Care Team Description 07/26/2025 Travel 07/25/2025 Results Follow-Up [address] MD 07/20/2025 12:35 PM EDT - 07/20/2025 11:59 PM EDT Hospital Encounter Radiology [address] [place] [address] Lumbar sprain, initial encounter [S33.5XXA] Discharge Disposition: Home 07/20/2025 12:00 PM EDT Office Visit [address] MD Wellness examination (Primary Dx); Lumbar sprain, initial encounter; Multiple sclerosis (HCC); Chronic insomnia 07/20/2025 Radiology Radiology [address] [place] [address] [place], RT(R) Radio Gen RMP 07/20/2025 Travel 06/22/2025 [facility] [address] [facility] [place] [address] Anya Cast APRN.DIRECTOR OF PHYSICAL EDUCATION Refill Request from Last 3 Months Immunizations Immunization Administration [...] How often do you attend chur or caodaism services? More than 4 times per year 02/24/2025 Do you belong to any clubs o r organizations such as temple groups, unions, fraternal or athletic groups, or [...] 02/24/2025 PHQ-2 Answer Date Recorded PHQ-2 score 1 07/26/2025 [facility] [place] [facility] Occupat ional Health - Occupational Stress [...] a nursing home (including now)? No 12/16/2022 [place] Depression Scale Answer Date Recorded [place] Depression Scale Total 1 10/30/2020 The thought [...] is lower risk 9 07/17/2023 Data from: https://www.neighborhoodatlas.medicine.[facility].edu/. Last address used for calculation [address] 07/17/2023 Education Answer Date Recorded What is the highest level of school you have completed or the highest degree you have received? Bachelor's degree (e.g., BA, AB, BS) 04/25/2022 Comments Unknown Sex and Gender Information Value Date Recorded Sex Assigned at Female 12/23/2020 1:00 AM EST Legal Sex Female 11:23 AM EST Gender Identity Female 12/23/2020 1:00 AM EST Sexual Orientation Straight 12/23/2020 1: 00 AM EST Last Filed Vital Signs Vital Sign Reading Time Taken Comments Blood Pressure 127/86 07/20/2025 12:02 PM EDT Pulse 96 07/20/2025 12:02 PM EDT Temperature 36.6 C (97.9 F) 07/20/2025 12:02 PM EDT Respiratory Rate 16 04/01/2025 2:09 PM EDT Oxygen Saturation 100% 07/20/2025 12:02 PM EDT Inhaled Oxygen Concentration - - Weight 70.1 kg (154 lb 8.7 oz) 07/20/2025 12:02 PM EDT Height 168.9 cm (5' 6.5 ) 07/20/2025 12:02 PM ED T Body Mass Index 24.57 07/20/2025 12:02 PM EDT Plan of Treatment Upcoming Encounters Date Type Department Care Team (Late st Contact Info) Description 09/30/2025 9:00 AM EST [facility] Hematology/Oncology [address] [place] [address] [place] [address] OCREVUS Health Maintenance Due Date Last Done Comments HPV Vaccine (1 - 3-dose SCDM series) 2012 Medicare Advantage Annual Wellness Visit 11/10/2024 Covid-19 Vaccine ( - 2024-2 6 season) 2025 Influenza Vaccine (#1) 2025 11/20/2023 Anxiety Screening 07/19/2025 07/19/2024 Depression Screening 07/19/2025 07/19/2024 Mammogram Screening 2025 03/22/2024 Cervical Cancer Screening 03/07/2026 03/07/2021, DTaP,Tdap,Td Vaccine (2 - Td or Tdap) 01/16/2032 01/15/2022 HIV Screening Completed 2020 Hepatitis C Screening Completed 03/17/2025 , 09/25/2023, 09/27/2022, Additional history exists Procedures Procedure Name Priority Date/Time Associated Diagnosis Comments XR LUMBAR GENERAL 3V AP/LAT/L5-S1 Routine 07/20/2025 12:40 PM EDT Lumbar sprain, initial encounter HEPATITIS C ANTIBODY IA WITH CONFIRMATION Routine 03/17/2025 9:38 AM EDT Multiple sclerosis (HCC) 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 Physical Sciences Professor: ANGEL Transcribe Date/Time: Jul 25 2025 9:54A Dictated by : JERICA GORDON MD This examination was interpreted and the report reviewed and electronically signed by: JERICA GORDON MD on Jul 25 2025 9:57AM EST Narrative 07/25/2025 9:59 AM EDT * * *Final Report* * * DATE OF EXAM: Jul 20 2025 12:40PM [id number] - XR LUMBAR 3V AP/LAT/L5-S1 / PROCEDURE REASON: Lumbar sprain, initial encounter * * * * Physician Interpretation * * * * LUMBAR SPINE RADIOGRAPHS HISTORY: Lumbar sprain, initial encounter TECHNIQUE: 3 views of the lumbar spine are submitted. COMPARISON: Lumbar spine plain film imaging 03/04/2024, MRI of the thoracic spine dated 01/19/2024 RESULT: Counting reference: Lumbosacral junction. For the purposes of this report, L4-5 is considered the level of the iliac crest and assume there are 5 lumbar-type vertebrae. Anatomic variant: None. Sagittal vertebral body heights and sagittal vertebral body alignment are normal. Minimal/early multilevel vertebral body endplate degenerative changes with relative preservation of intervertebral disc space heights. SI joints are unremarkable. Procedure Note Provider, [facility] [place] - 07/25/2025 * * *Final Report* * * DATE OF EXAM: Jul 20 2025 12:40PM SVX [id number] - XR LUMBAR 3V AP/LAT/L5-S1 / PROCEDURE REASON: Lumbar sprain, initial encounter * * * * Physician Interpretation * * * * LUMBAR SPINE RADIOGRAPHS HISTORY: Lumbar sprain, initial encounter TECHNIQUE: 3 views of the lumbar spine are submitted. COMPARISON: Lumbar spine plain film imaging 03/04/2024, MRI of the thoracic spine dated 01/19/2024 RESULT: Counting reference: Lumbosacral junction. For the purposes of this report, L4-5 is considered the level of the iliac crest and assume there are 5 lumbar-type vertebrae. Anatomic variant: None. Sagittal vertebral body heights and sagittal vertebral body alignment are normal. Minimal/early multilevel vertebral body endplate degenerative changes with relative preservation of intervertebral disc space heights. SI joints are unremarkable. IMPRESSION IMPRESSION: No acute process or significant interval change from 03/04/2024. Physical Sciences Professor: ANGEL Transcribe Date/Time: Jul 25 2025 9:54A Dictated by : JERICA GORDON MD This examination was interpreted and the report reviewed and electronically signed by: JERICA GORDON MD on Jul 25 2025 9:57AM EST us Rashard Lane MD RAD-PAMA Final Result * HEPATITIS C ANTIBODY IA WITH CONFIRMATION (03/17/2025 9:38 AM EDT) Hep C Antibody IA Negative Negative 03/17/2025 7:08 PM ED[address] [facility] Comment:The result suggests no evidence of infection with Hepatitis C virus. Should recent infection be suspected, repeat testing may be considered 4-6 weeks after this draw. Blood BLOOD SPECIMEN / Unknown Venipuncture / Unknown 03/17/2025 9:38 AM EDT 03/17/2025 9:56 AM EDT Anya Cast RECOVERY ROOM NURSE.DIRECTOR OF PHYSICAL EDUCATION LABORATORY Final Res ult [facility] [address] [place] [id number], [place] * HIV 1 2 COMBO(AG/AB),WITH REFLEX TO DIFFERENTIATION (2020 11:29 AM EDT) HIV 12 Combo (Ag/Ab) Non Reactive Non Reactive 08/05/2020 9:42 AM EDT [facility] HIV 1/2 Ab Confirmatory Test Not Indicated 08/05/2020 9:42 AM EDT [facility] HIV Interpretation Negative 08/05/2020 9:42 AM EDT [facility] Comment: No evidence of HIV-1 or HIV-2 infection. Should recent infection be suspected, repeat testing may be considered 2-3 weeks after this draw. HIV Information: [place] Rev. Code 3701.243(E): This information has been [...] Lala Forman DO LABORATORY Final Res ult [facility] [address] [place] [address] [facility] [address] [place] [address] from Last 3 Months or Most Recently Relevant to Health Maintenance Insurance [place]ICAID [place] [facility] DUAL COMPLETE HMO POS SNP Care Teams Coat Room Attendant Relationship Specialty Start Date End Date Rashard Laen MD [address] [place] [address] PCP - General Family Medicine 12/09/19 Indiana Hein, RECOVERY ROOM NURSE.DIRECTOR OF PHYSICAL EDUCATION [address] [place] [address] Photostat Operator Family Medicine 06/08/25
--- OUTSIDE RECORDS SUMMARY | 2025-08-26 19:54 | XMS_ITS | Encounter Summary ---
Author Organization [facility] Address [address] [place] [address] Care Team Providers Care Newspaper Carriers Supervisor Name Role Phone Janice Lane MD Primary Care Provider [phone] Encounter Details Date Type Department Care Team (Late st Contact Info) Description 08/10/2024 Clinisync Result Encounter [facility] External Department Unsolicited John Hu DO [address] [place] [address] Social History Tobacco Use Types Packs/Day Years [...] Department Care Team (Late Contact Info) Description 04/17/2026 1:00 PM EDT Office Visit [facility] [address] [place] [id number] Jahaira Byers PA [address] [place] [address] [place] [address] [phone] (work) documented as of this encounter Procedures Procedure Name Priority Date/Time Associated Diagnosis Comments US OB CERVICAL LENGTH 08/10/2024 9:53 AM EDT documented in this encounter Results * US OB CERVICAL LENGTH (08/10/2024 9:53 AM EDT) Anatomical Region Laterality Modality Other 08/10/2024 9:53 AM EDT Narrative 08/10/2024 9:55 AM EDT [address] [address] Ultrasound Report Signed Patient: CAROL ANN ROMAN MR#: [id number] : 1985 Acct:[id number] Age/Sex: 39 / F ADM Date: 08/10/24 Loc: [facility] Attending Dr: John Hu D.O. Ordering Physician: John Hu D.O. Date of Service: 08/10/24 Procedure(s): US OB cervical length Accession Number(s): [id number] cc: John Hu D.O.; Physician,Non-Staff MJoana [address] [address] Patient Name: CAROL ANN ROMAN MRN: [id number] date: 1985 Sex: F Assigned Patient Location: [facility] Current Patient Location: [facility] Accession/Order Number: [id number] Exam Date: 08/10/2024 09:08 Report Date: 08/10/2024 [...] Dictated By: Janice Erwin M.D. Signed By: 08/10/24954 DD/ 2 TD/TT: Warehouse Lead: Procedure Note Radiology, Radiologist, MD - 08/10/2024 [place] [address] Ultrasound Report Signed Patient: CAROL ANN ROMNA FMR#: [id number] : 1985Acct:[id number] Age/Sex: 39 / FADM Date: 08/10/24 Loc: [facility] Attending Dr: John Hu D.O. Ordering Physician: John Hu D.O. Date of Service: 08/10/24 Procedure(s): US OB cervical length Accession Number(s): [id number] cc: John Hu D.O.; Physician,Non-Staff [place] [address] Patient Name: CAROL ANN ROMAN MRN: [facility]:[id number] date: 1985 Sex: F Assigned Patient Location: [facility] Current Patient Location: [facility] Accession/Order Number: [id number] Exam Date: 08/10/2024 09:08 Report Date: 08/10/2024 [...] Erwin M.D. Signed By:08/10/24954 DD/ 2 TD/TT: Warehouse Lead: us John Hu DO [facility] Final Result documented in this encounter Visit Diagnoses Not on filedocumented in this encounter Care Teams Newspaper Carriers Supervisor Relationship Specialty [place] [address] [place] [address] PCP - General Pediatrics 10/26/23 documented as of this encounter
--- OUTSIDE RECORDS SUMMARY | 2025-08-26 19:54 | XMS_ITS | Encounter Summary ---
Author Organization [facility] Address [address] [place] [address] Care Team Providers Care Trial Justice Name Role Phone Rashard Lane MD Primary Care Provider [phone] Juan Miguel Caballero [facility] Unavailable Unavailable Olimpia Turpin PHARMACY GENERAL MANAGER.AIRLINE DISPATCHER Unavailable Maricruz Valdovinos PA-C Unavailable [phone] Indiana Hein PHARMACY GENERAL MANAGER.AIRLINE DISPATCHER Unavailable Source Comments In the event this information is protected by the Federal Confidentiality of Alcohol and Drug AbusePatient Records regulations: The Federal rules restrict any use of the information to criminally investigate or prosecute any alcohol or drug abuse patient.[facility] Encounter Details Date Type Department Care Team (Late st Contact Info) Description 01/17/2023 Patient [facility] [place] [address] [place] [address] [address] Mirna Wilson LISW [address] [facility]STB[facility] [place], [place] [id number] Social Work- Childcare Social History Tobacco Use [...] Answer Date Recorded PHQ-2 score 0 01/13/2023 [facility] [place] of Occupat ional Health - Occupational Stress [...] a group home (including now)? No 12/16/2022 [place] Depression Scale Answer Date Recorded [place] Depression Scale Total 1 10/30/2020 The thought of harming myself has occurred to me . Never 10/30/2020 [place] Deprivation Index Answer Date Ger rded National Score (1-100), lower number is lower ri sk 89 11/27/2022 State Score (1-10), lower number is lower risk N ot on file 11/27/2022 Data from: https://www.neighborhoodatlas.medicine.[facility].edu/. Last address used for calculation [address] [...] st Contact Info) Description 09/30/2025 9:00 AM [facility] Hematology/Oncology [address] [place] [address] [place] [address] OCREVUS documented as of this encounter Visit Diagnoses Not on filedocumented in this encounter Additional Health Concerns Infection Onset Date Last Indicated Resolved Time COVID-19 Rule-Out 02/12/2023 02/12/2023 02/13/2023 1:49 AM EDT COVID-19 Confirmed 02/12/2023 02/12/2023 8:51 PM EDT documented as of this encounter Care Teams Trial Justice Relationship Specialty Start Date End Date Rashard Lane MD [address] [place] [address] PCP - General Family Medicine 12/09/19 Juan Miguel Caballero, [facility] 05/30/24 04/12/25 Olimpia Turpin, PHARMACY GENERAL MANAGER.AIRLINE DISPATCHER [address] [place] [address] Road Engineer Family Medicine 10/18/24 05/22/25 Maricruz Valdovinos PA-C [address] [place] [address] [address] Engineer Internal Medicine 10/18/24 11/11/24 Indiana Hein, PHARMACY GENERAL MANAGER.AIRLINE DISPATCHER [address] [place] [address] Road Engineer Family Medicine 06/08/25 documented as of this encounter
--- OUTSIDE RECORDS SUMMARY | 2025-08-26 19:54 | XMS_ITS | Encounter Summary ---
Author Organization [facility] Address [address] [place] [address] Care Team Providers Care Farmworker Dairy Name Role Phone Janice Lane MD Primary Care Provider [phone] Encounter Details Date Type Department Care Team (Late st Contact Info) Description 08/24/2024 Clinisync Result Encounter [facility] External Department Unsolicited John Hu DO [address] [facility] [place] [address] Social History Tobacco Use Types Packs/Day Years [...] [address] [facility] [place] [address] Jahaira Byers PA [address] [place] [address] [place] [address] [phone] (work) documented as of this encounter Procedures Procedure Name Priority Date/Time Associated Diagnosis Comments US OB CERVICAL LENGTH 08/24/2024 12:51 PM EDT documented in this encounter Results * US OB CERVICAL LENGTH (08/24/2024 12:51 PM EDT) Anatomical Region Laterality Modality Other 08/24/2024 12:5 1 PM EDT Narrative 08/24/2024 12:53 PM EDT [address] [address] Ultrasound Report Signed Patient: CAROL ANN ROMAN MR#: [id number] : 1985 Acct:[id number] Age/Sex: 39 / F ADM Date: 08/24/24 Loc: [facility] Attending Dr: John Hu D.O. Ordering Physician: John Hu D.O. Date of Service: 08/24/24 Procedure(s): US OB cervical length Accession Number(s): [id number] cc: John Hu D.O.; Physician,Non-Staff [place] [address] [address] Patient Name: CAROL ANN ROMAN MRN: [id number] date: 1985 Sex: F Assigned Patient Location: [facility] Current Patient Location: [facility] Accession/Order Number: [id number] Exam Date: 08/24/2024 10:32 Report Date: 08/24/2024 [...] Dictated By: Janice Erwin M.D. Signed By: 08/24/241252 DD/ 50 TD/TT: Firer Watertender: Procedure Note Radiology, Radiologist, MD - 08/24/2024 [place] [address] Ultrasound Report Signed Patient: CAROL ANN ROMAN FMR#: [id number] : 1985Acct:[id number] Age/Sex: 39 / FADM Date: 08/24/24 Loc: [facility] Attending Dr: John Hu D.O. Ordering Physician: John Hu D.O. Date of Service: 08/24/24 Procedure(s): US OB cervical length Accession Number(s): [id number] cc: John Hu D.O.; Physician,Non-Staff [place] The [place] [id number] Patient Name: CAROL ANN ROMAN MRN: [id number] date: 1985 Sex: F Assigned Patient Location: [facility] Current Patient Location: [facility] Accession/Order Number: [id number] Exam Date: 08/24/2024 10:32 Report Date: 08/24/2024 [...] 12:51 Dictated By: Janice Erwin M.D. Signed By:08/24/241252 DD/ 50 TD/TT: Firer Watertender: us John Hu DO [facility] Final Result documented in this encounter Visit Diagnoses Not on filedocumented in this encounter Care Teams Farmworker Dairy Relationship Specialty [place] [address] [place] [address] PCP - General Pediatrics 10/26/23 documented as of this encounter
--- OUTSIDE RECORDS SUMMARY | 2025-08-26 19:54 | XMS_ITS | Encounter Summary ---
Author Organization [facility] Address [address] [place] [address] Care Team Providers Care Sand Caster Apprentice Name Role Phone Rashard Lane MD Primary Care Provider [phone] Encounter Details Date Type Department Care Team (Late st Contact Info) Description 09/14/2024 Clinisync Result Encounter [facility] External Department Unsolicited Clarke Hu DO [address] [place] [address] Social History Tobacco Use Types Packs/Day Years [...] EDT Office Visit [facility] Sherry OBGYN [address] [place] [place] [address] Jahaira Byers PA [address] [place] [address] [place] [address] documented as of this encounter Procedures Procedure [...] EFW (oz) 0 oz EFW by: Hadlock (PQQ-HC-GI-FL) Extended Security Sme 1.6 mm Head / Face / Neck [...] age Procedure Note Radiology, Radiologist, MD - 09/20/2024 Interpreted by: Radha Batres Indication [...] 74.6 40% 276.2 24%259.2 51% 56.3 28% 735486% 09/17/2024 34w 2d 87.5 78% 311.8 29%288.9 17% 66.8 43% 544504% Impression ========= Patient presents for growth assessment [...] EFW (oz) 0 oz EFW by: Hadlock (DIH-YL-FF-FL) Extended Security Sme 1.6 mm Head / Face / Neck [...] on filedocumented in this encounter Care Teams Sand Caster Apprentice Relationship Specialty [place] [address] [place] [address] PCP - General Pediatrics 10/26/23 documented as of this encounter
--- OUTSIDE RECORDS SUMMARY | 2025-08-26 19:54 | XMS_ITS | Encounter Summary ---
Author Organization [facility] Address [address] [place] [address] Care Team Providers Care Sound Tester Name Role Phone Janice Lane MD Primary Care Provider [phone] Encounter Details Date Type Department Care Team (Late st Contact Info) Description 09/29/2024 Clinisync Result Encounter [facility] External Department Unsolicited John Hu DO [address] [facility] [place] [address] Social History Tobacco Use Types Packs/Day Years [...] EDT Office Visit [facility] OBGYN [address] [place] [phone] Jahaira Byers PA [address] [place] [address] [place] [address] [phone] (work) documented as of this encounter Procedures Procedure Name Priority Date/Time Associated Diagnosis Comments US OB BPP W NON-STRESS 09/29/2024 7:20 AM EST documented in this encounter Results * US OB BPP W NON-STRESS (09/29/2024 7:20 AM EST) Anatomical Region Laterality Modality Other 09/29/2024 7:20 AM EST Narrative 09/29/2024 7:23 AM EST [place] [id number] Ultrasound Report Signed Patient: CAROL ANN ROMAN MR#: [id number] : 1985 Acct:[id number] Age/Sex: 39 / F ADM Date: 09/28/24 Loc: US Attending Dr: John Hu D.O. Ordering Physician: John Hu D.O. Date of Service: 09/28/24 Procedure(s): US OB BPP w non-stress Accession Number(s): [id number] cc: John Hu D.O.; Physician,Non-Staff M.Jong The [address] [address] Patient Name: CAROL ANN ROMAN MRN: [id number] date: 1985 Sex: F Assigned Patient Location: [facility] Current Patient Location: Accession/Order Number: [id number] Exam Date: 09/28/2024 17:25 Report Date: 09/29/2024 [...] M.D. Signed By: 09/29/24722 DD/ 9 TD/TT: Consumer Insights Intern: Procedure Note Radiology, Radiologist, MD - 09/29/2024 [place] [address] Ultrasound Report Signed Patient: CAROL ANN ROMAN FMR#: [id number] : 1985Acct:[id number] Age/Sex: 39 / FADM Date: 09/28/24 Loc: US Attending Dr: John Hu D.O. Ordering Physician: John Hu D.O. Date of Service: 09/28/24 Procedure(s): US OB BPP w non-stress Accession Number(s): [id number] cc: John Hu D.O.; Physician,Non-Staff [place] The [place] [address] Patient Name: CAROL ANN ROMAN MRN: [id number] date: 1985 Sex: F Assigned Patient Location: [facility] Current Patient Location: Accession/Order Number: [id number] Exam Date: 09/28/2024 17:25 Report Date: 09/29/2024 [...] Erwin M.D. Signed By:09/29/24722 DD/ 9 TD/TT: Consumer Insights Intern: us John Mayte DO [facility] Final Result documented in this encounter Visit Diagnoses Not on filedocumented in this encounter Care Teams Sound Tester Relationship Specialty [place] [address] [place] [address] PCP - General Pediatrics 10/26/23 documented as of this encounter
--- OUTSIDE RECORDS SUMMARY | 2025-08-26 19:54 | XMS_ITS | Encounter Summary ---
Author Organization [employer] Address [id number] [address] [place] [address] Care Team Providers Care Laborer Shellfish Processing Name Role Phone DomingoRashard parks Sneha Primary Care Provider [phone] Encounter Details Date Type Department Care Team (Late st Contact Info) Description 01/29/2021 Abstract [facility] - Medical Oncology [address] [place] [phone] Sofy Richards Social History Tobacco Use Types [...] is to have improved memory, ability to chicken picker and hold items with bilateral hands, to have improved vision, and have no difficulty swallowing prior to discharging home. documented as of this encounter Visit Diagnoses Not on filedocumented in this encounter Care Teams Laborer Shellfish Processing Relationship Specialty Start Date End Date [address] [address] [place] [address] PCP - General Family Medicine 12/22/19 documented as of this encounter
--- OUTSIDE RECORDS SUMMARY | 2025-08-26 19:54 | XMS_ITS | Encounter Summary ---
Author Organization [facility] Address [address] [place] [address] Care Team Providers Care Galvanizer Zinc Name Role Phone Rashard Lane MD Primary Care Provider [phone] Encounter Details Date Type Department Care Team (Late st Contact Info) Description 10/06/2024 Abstract [facility] [place] [address] [place] [address] Clarke Hu DO [address] [facility] [place] [address] Social History Tobacco Use Types Packs/Day Years [...] Description 04/17/2026 1:00 PM EDT Office Visit [facility] [place] [address] [place] [address] Jahaira Byers PA [address] [place] [address] [place] [address] documented as of this encounter Visit Diagnoses Not on filedocumented in this encounter Care Teams Galvanizer Zinc Relationship Specialty [place] [address] [place], [place] [address] PCP - General Pediatrics 10/26/23 documented as of this encounter
--- OUTSIDE RECORDS SUMMARY | 2025-08-26 19:54 | XMS_ITS | Clinical Summary ---
Author Organization [employer] Address [id number] [address] [place] [address] Care Team Providers Care Endless Bed Drum Sander Name Role Phone DomingoRashard Sneha Primary Care Provider [phone] Allergies Active Allergy Reactions Criticality Noted Date Comments Gluten 03/19/2019 Constipation Chest pain Boils Stomach upset Lecithin 03/19/2019 More constipated Soy Headache 05/03/2020 Medications ascorbic acid, vitamin C, (VITAMIN C) 1000 mg tablet Take 1,000 mg by mouth daily. supplement Active B-complex with vitamin C tablet Take 1 tablet by mouth daily. supplement Active fzurxjjg-pahh-M A-calcium &mins (THERAGRAN-M) 9 mg iron-400 mcg [...] is to have improved memory, ability to pickle maker and hold items with bilateral hands, to have improved vision, and have no difficulty swallowing prior to discharging home. Medical Devices Not on file Insurance MEDICAID OR [employer] MEDICARE Advance Directives * Full Code (Latest Code Status on File) Date Activated Date Inactivated Comments 10/05/2019 5:00 PM 10/22/2019 6:50 PM * Full Code Date Activated Date Inactivated Comments 10/02/2019 4:56 AM 10/05/2019 4:45 PM Care Teams Endless Bed Drum Sander Relationship Specialty Start Date End Date [address] [address] [place] [address] PCP - General Family Medicine 12/22/19
--- OUTSIDE RECORDS SUMMARY | 2025-08-26 19:54 | XMS_ITS | Encounter Summary ---
Author Organization [facility] Address [address] [place] [address] Care Team Providers Care Boiler Tenders Supervisor Name Role Phone Rashard Lane MD Primary Care Provider [phone] Juan Miguel Caballero [facility] Unavailable Unavailable Olimpia Turpin MOISTURE METER READER.HAND SIZER Unavailable [phone] Maricruz Valdovinos PA-C Unavailable [phone] Indiana Hein MOISTURE METER READER.HAND SIZER Unavailable [phone] Source Comments In the event this information is protected by the Federal Confidentiality of Alcohol and Drug AbusePatient Records regulations: The Federal rules restrict any use of the information to criminally investigate or prosecute any alcohol or drug abuse patient.[facility] Encounter Details Date Type Department Care Team ([facility] st Contact Info) Description 09/12/2021 Patient Navigate [facility] [place] [address] [place] [address] Provider, Ccf Consult to Allergy/Immunology Social History Tobacco Use Types Packs/Day Years Used Date Smoking Tobacco: Never Smokeless Tobacco: Never Alcohol Use Standard Drinks/Week Comments Not Currently 0 (1 standard drink = 0.6 oz pur e alcohol) occas PHQ-2 Answer Date Recorded PHQ-2 score 0 02/08/2021 [place] Depression Scale Answer Date Recorded [place] Depression Scale Total 1 10/30/2020 The thought of harming myself has occurred to me . Never 10/30/2020 Area Deprivation Index Answer Date Ger rded National Score (1-100), lower number is lower ri sk Not on file 10/19/2020 State Score (1-10), lower number is lower risk N ot on file 10/19/2020 Data from: https://www.neighborhoodatlas.[facility]/. Last address used for calculation Not on [...] Date Author No 01/11/2021 4:00 PM EST Gomez Oliveira, FREYA documented in this encounter Plan of Treatment Upcoming Encounters Date Type Department Care Team (Late st Contact Info) Description 09/30/2025 9:00 AM EST [facility] Hematology/Oncology [address] [place] [address] [place] [address] [place] documented as of this encounter Visit Diagnoses Not on filedocumented in this encounter Additional Health Concerns Infection Onset Date Last Indicated Resolved Time COVID-19 Rule-Out 02/12/2023 02/12/2023 02/13/2023 1:49 AM EDT COVID-19 Confirmed 02/12/2023 02/12/2023 8:51 PM EDT documented as of this encounter Care Teams Boiler Tenders Supervisor Relationship Specialty Start Date End Date Rashard [address] MD [address] [place] [address] PCP - General Family Medicine 12/09/19 Juan Miguel Caballero [facility] 05/30/24 04/12/25 Olimpia Turpin, MOISTURE METER READER.HAND SIZER [address] [place] [address] Internet Marketing Intern Family Medicine 10/18/24 05/22/25 Maricruz Valdovinos PA-C [address] [place] [address] Internet Marketing Intern Internal Medicine 10/18/24 11/11/24 Indiana Hein, MOISTURE METER READER.HAND SIZER [address] [place] [address] Internet Marketing Intern Family Medicine 06/08/25 documented as of this encounter
--- OUTSIDE RECORDS SUMMARY | 2025-08-26 19:54 | XMS_ITS | Encounter Summary ---
Author Organization [facility] Address [address] [place] [address] Care Team Providers Care Employment And Claims Aide Name Role Phone Rashard Lane MD Primary Care Provider [phone] Encounter Details Date Type Department Care Team (Late st Contact Info) Description 10/06/2024 Clinisync Result Encounter [facility] External Department Unsolicited John Hu DO [address] [facility] [place] [address] Social History Tobacco Use Types Packs/Day Years [...] EDT Office Visit [facility] Sherry OBGYN [address] [place] [address] Jahaira Byers PA [address] [place] [address] [place] [address] [phone] (work) documented as of this encounter Procedures Procedure Name Priority Date/Time Associated Diagnosis Comments US OB BPP W NON-STRESS 10/06/2024 6:28 AM EST documented in this encounter Results * US OB BPP W NON-STRESS (10/06/2024 6:28 AM EST) Anatomical Region Laterality Modality Other 10/06/2024 6:28 AM EST Narrative 10/06/2024 6:30 [place] [address] Ultrasound Report Signed Patient: CAROL ANN ROMAN MR#: [id number] : 1985 Acct:[id number] Age/Sex: 39 / F ADM Date: 10/05/24 Loc: US Attending Dr: John Hu D.O. Ordering Physician: John Hu D.O. Date of Service: 10/05/24 Procedure(s): US OB BPP w non-stress Accession Number(s): [id number] cc: John Hu D.O.; Physician,Non-Staff M.Jong The [address] [address] Patient Name: CAROL ANN ROMAN MRN: [id number] date: 1985 Sex: F Assigned Patient Location: [facility] Current Patient Location: Accession/Order Number: [id number] Exam Date: 10/05/2024 17:37 Report Date: 10/06/2024 [...] M.D. Signed By: 10/06/24629 DD/ 7 TD/TT: Career Education Teacher: Procedure Note Radiology, Radiologist, MD - 10/06/2024 [place] [address] Ultrasound Report Signed Patient: CAROL ANN ROMAN FMR#: [id number] : 1985Acct:[id number] Age/Sex: 39 / FADM Date: 10/05/24 Loc: US Attending Dr: John Hu D.O. Ordering Physician: John Hu D.O. Date of Service: 10/05/24 Procedure(s): US OB BPP w non-stress Accession Number(s): [id number] cc: John Hu D.O.; Physician,Non-Staff [place] The [place] [id number] Patient Name: CAROL ANN ROMAN MRN: [id number] date: 1985 Sex: F Assigned Patient Location: [facility] Current Patient Location: Accession/Order Number: [id number] Exam Date: 10/05/2024 17:37 Report Date: 10/06/2024 [...] Britt M.D. Signed By:10/06/24629 DD/ 7 TD/TT: Career Education Teacher: us John Mayte DO [facility] Final Result documented in this encounter Visit Diagnoses Not on filedocumented in this encounter Care Teams Employment And Claims Aide Relationship Specialty [place] [address] [place] [address] PCP - General Pediatrics 10/26/23 documented as of this encounter
--- OUTSIDE RECORDS SUMMARY | 2025-08-26 19:54 | XMS_ITS | Encounter Summary ---
Author Organization [facility] Address [address] [place] [address] Care Team Providers Care Mri Assistant Name Role Phone Rashard Lane MD Primary Care Provider [phone] Encounter Details Date Type Department Care Team (Late st Contact Info) Description 10/05/2024 Clinisync Result Encounter [facility] External Department Unsolicited Clarke Hu DO [address] [facility] [place] [address] Social History Tobacco Use Types Packs/Day Years [...] EDT Office Visit [facility] Sherry OBGYN [address] [facility] [address] Jahaira Byers PA [address] [place] [address] [place] [address] documented as of this encounter Procedures Procedure [...] BPP and Dopplers. Delivery is recommended at [id number]-62k0d. Please see note from today for details [...] EFW (oz) 13 oz EFW by: Hadlock (TXI-TD-HM-FL) Extended Gaming Associate 5.8 mm Head / Face / Neck [...] BPP and Dopplers. Delivery is recommended at 12z3w-43n9c. Please see note from today for details [...] EFW (oz) 13 oz EFW by: Hadlock (BMQ-WF-RO-FL) Extended Gaming Associate 5.8 mm Head / Face / Neck [...] BPP and Dopplers. Delivery is recommended at 19u5t-38m4o. Please see note from today for details [...] EFW (oz) 13 oz EFW by: Hadlock (WRC-PB-PD-FL) Extended Gaming Associate 5.8 mm Head / Face / Neck [...] gestational age Procedure Note Radiology, Radiologist, - 10/05/2024 Interpreted by: Delgado Solis Indication [...] 74.6 40% 276.2 24%259.2 51% 56.3 28% 221225% 09/17/2024 34w 2d 87.5 78% 311.8 29%288.9 17% 66.8 43% 030535% 10/05/2024 36w 6d 89.7 49% 326.4 27%304.3 6% 70.2 26% 016319% Impression ========= Patient here for growth ultrasound [...] weekly BPPand Dopplers. Delivery is recommended at 03n0j-88x5q. Please see note from today fordetails General [...] EFW (oz) 13 oz EFW by: Hadlock (XWQ-GN-QI-FL) Extended Gaming Associate 5.8 mm Head / Face / Neck [...] 74.6 40% 276.2 24%259.2 51% 56.3 28% 134368% 09/17/2024 34w 2d 87.5 78% 311.8 29%288.9 17% 66.8 43% 233874% 10/05/2024 36w 6d 89.7 49% 326.4 27%304.3 6% 70.2 26% 302612% Impression ========= Patient here for growth ultrasound [...] weekly BPPand Dopplers. Delivery is recommended at 51x7s-62i1l. Please see note from today fordetails General [...] EFW (oz) 13 oz EFW by: Hadlock (FBN-DI-UF-FL) Extended Gaming Associate 5.8 mm Head / Face / Neck [...] 74.6 40% 276.2 24%259.2 51% 56.3 28% 892649% 09/17/2024 34w 2d 87.5 78% 311.8 29%288.9 17% 66.8 43% 047374% 10/05/2024 36w 6d 89.7 49% 326.4 27%304.3 6% 70.2 26% 229916% Impression ========= Patient here for growth ultrasound [...] weekly BPPand Dopplers. Delivery is recommended at 64m9z-78x9h. Please see note from today [facility] General Evaluation Cardiac activity present. FHR 142 [...] EFW (oz) 13 oz EFW by: Hadlock (QJX-IW-GV-FL) Extended Gaming Associate 5.8 mm Head / Face / Neck [...] on filedocumented in this encounter Care Teams Mri Assistant Relationship Specialty [place] [address] [place] [address] PCP - General Pediatrics 10/26/23 documented as of this encounter
--- OUTSIDE RECORDS SUMMARY | 2025-08-26 19:54 | XMS_ITS | Encounter Summary ---
Author Organization [facility] Address [address] [place] [address] Care Team Providers Care Radiographer Angiogram Name Role Phone Rashard Lane MD Primary Care Provider [phone] Encounter Details Date Type Department Care Team (Late st Contact Info) Description 10/05/2024 Clinisync Result Encounter [facility] External Department Unsolicited Clarke Hu DO [address] [facility] [address] [place] [address] Social History Tobacco Use Types Packs/Day Years [...] EDT Office Visit [facility] Sherry OBGYN [address] [place] [address] Jahaira Byers PA [address] [place] [address] [place] [address] documented as of this encounter Procedures Procedure [...] BPP and Dopplers. Delivery is recommended at 37r1m-85t9c. Please see note from today for details [...] EFW (oz) 13 oz EFW by: Hadlock (AHT-CS-IN-FL) Extended Windrower Operator 5.8 mm Head / Face / [...] BPP and Dopplers. Delivery is recommended at 25d6f-90c5o. Please see note from today for details [...] EFW (oz) 13 oz EFW by: Hadlock (UPE-YD-OH-FL) Extended Windrower Operator 5.8 mm Head / Face / [...] BPP and Dopplers. Delivery is recommended at 69n6t-43f2a. Please see note from today for details [...] EFW (oz) 13 oz EFW by: Hadlock (SGD-IU-SF-FL) Extended Windrower Operator 5.8 mm Head / Face / [...] 74.6 40% 276.2 24%259.2 51% 56.3 28% 422319% 09/17/2024 34w 2d 87.5 78% 311.8 29%288.9 17% 66.8 43% 176656% 10/05/2024 36w 6d 89.7 49% 326.4 27%304.3 6% 70.2 26% 625443% Impression ========= Patient here for growth ultrasound [...] weekly BPPand Dopplers. Delivery is recommended at 78z2l-71s7q. Please see note from today fordetails General [...] EFW (oz) 13 oz EFW by: Hadlock (FFG-DV-JO-FL) Extended Windrower Operator 5.8 mm Head / Face / [...] 74.6 40% 276.2 24%259.2 51% 56.3 28% 615865% 09/17/2024 34w 2d 87.5 78% 311.8 29%288.9 17% 66.8 43% 675801% 10/05/2024 36w 6d 89.7 49% 326.4 27%304.3 6% 70.2 26% 161347% Impression ========= Patient here for growth ultrasound [...] weekly BPPand Dopplers. Delivery is recommended at 60p9z-62l2o. Please see note from today fordetails General [...] EFW (oz) 13 oz EFW by: Hadlock (XHD-ZV-EB-FL) Extended Windrower Operator 5.8 mm Head / Face / [...] 74.6 40% 276.2 24%259.2 51% 56.3 28% 485198% 09/17/2024 34w 2d 87.5 78% 311.8 29%288.9 17% 66.8 43% 432657% 10/05/2024 36w 6d 89.7 49% 326.4 27%304.3 6% 70.2 26% 309788% Impression ========= Patient here for growth ultrasound [...] weekly BPPand Dopplers. Delivery is recommended at 17s5o-78e5x. Please see note from today [facility] General Evaluation Cardiac activity present. FHR 142 [...] EFW (oz) 13 oz EFW by: Hadlock (BKI-DG-MZ-FL) Extended Windrower Operator 5.8 mm Head / Face / [...] on filedocumented in this encounter Care Teams Radiographer Angiogram Relationship Specialty [place] [address] [place] [address] PCP - General Pediatrics 10/26/23 documented as of this encounter
--- OUTSIDE RECORDS SUMMARY | 2025-08-26 19:54 | XMS_ITS | Encounter Summary ---
Author Organization [facility] Address [address] [place] [address] Care Team Providers Care Seismograph Helper Name Role Phone Janice Lane MD Primary Care Provider [phone] Encounter Details Date Type Department Care Team (Late st Contact Info) Description 09/21/2024 Clinisync Result Encounter [facility] External Department Unsolicited John Hu DO [address] [place] [address] Social History Tobacco Use Types Packs/Day Years [...] EDT Office Visit [facility] Sherry OBGYN [address] [place] [address] Jahaira Byers PA [address] [place] [address] [place] [address] [phone] (work) documented as of this encounter Procedures Procedure Name Priority Date/Time Associated Diagnosis Comments US OB CERVICAL LENGTH 09/21/2024 2:35 PM EST documented in this encounter Results * US OB CERVICAL LENGTH (09/21/2024 2:35 PM EST) Anatomical Region Laterality Modality Other 09/21/2024 2:35 PM EST Narrative 09/21/2024 2:38 PM EST [address] [address] Ultrasound Report Signed Patient: CAROL ANN ROMAN MR#: [id number] : 1985 Acct:[id number] Age/Sex: 39 / F ADM Date: 09/21/24 Loc: [facility] Attending Dr: John Hu D.O. Ordering Physician: John Hu D.O. Date of Service: 09/21/24 Procedure(s): US OB cervical length Accession Number(s): [id number] cc: John Hu D.O.; Physician,Non-Staff [place] [address] [address] Patient Name: CAROL ANN ROMAN MRN: [id number] date: 1985 Sex: F Assigned Patient Location: [facility] Current Patient Location: [facility] Accession/Order Number: [id number] Exam Date: 09/21/2024 14:01 Report Date: 09/21/2024 [...] M.D. Signed By: 09/21/241437 DD/ 34 TD/TT: Ion Implant Machine Operator: Procedure Note Radiology, Radiologist, MD - 09/21/2024 [place] [address] Ultrasound Report Signed Patient: CAROL ANN ROMAN FMR#: [id number] : 1985Acct:[id number] Age/Sex: 39 / FADM Date: 09/21/24 Loc: [facility] Attending Dr: John Hu D.O. Ordering Physician: John Hu D.O. Date of Service: 09/21/24 Procedure(s): US OB cervical length Accession Number(s): [id number] cc: John Hu D.O.; Physician,Non-Staff [place] [address] [place] [address] Patient Name: CAROL ANN ROMAN MRN: [facility]:[id number] date: 1985 Sex: F Assigned Patient Location: [facility] Current Patient Location: [facility] Accession/Order Number: [id number] Exam Date: 09/21/2024 14:01 Report Date: 09/21/2024 [...] 14:35 Dictated By: Janice Erwin M.D. Signed By:09/21/241437 DD/ 34 TD/TT: Ion Implant Machine Operator: us John Hu DO [facility] Final Result documented in this encounter Visit Diagnoses Not on filedocumented in this encounter Care Teams Seismograph Helper Relationship Specialty Start Date [place] [id number] [place] [address] PCP - General Pediatrics 10/26/23 documented as of this encounter
--- OUTSIDE RECORDS SUMMARY | 2025-08-26 19:54 | XMS_ITS | Encounter Summary ---
Author Organization [facility] Address [address] [place] [address] Care Team Providers Care Ends Down Checker Name Role Phone Rashard Lane MD Primary Care Provider [phone] Juan Miguel Caballero [facility] Unavailable Unavailable Olimpia Turpin SENIOR SOFTWARE QUALITY ANALYST.WILDLIFE CONTROL AGENT Unavailable Maricruz Valdovinos PA-C Unavailable [phone] [place] Hein SENIOR SOFTWARE QUALITY ANALYST.WILDLIFE CONTROL AGENT Unavailable Source Comments In the event this information is protected by the Federal Confidentiality of Alcohol and Drug AbusePatient Records regulations: The Federal rules restrict any use of the information to criminally investigate or prosecute any alcohol or drug abuse patient.[facility] Encounter Details Date Type Department Care Team (Late st Contact Info) Description 12/18/2022 Patient [facility] Chris Rixford [address] [place], [place] [id number] Mirna Wilson LISW [address] [facility] [place], [place] [id number] Social Work Resources Social History Tobacco Use [...] How often do you attend chur or scientology services? Never 12/16/2022 Do you belong to any clubs o r organizations such as sabianist groups, unions, fraternal or athletic groups, or [...] Answer Date Recorded PHQ-2 score 0 12/17/2022 [facility] of Occupat ional Health - Occupational Stress [...] place to sleep or slept in a snf (including now)? No 12/16/2022 [place] Depression Scale Answer Date Recorded [place] Depression Scale Total 1 10/30/2020 The thought of harming myself has occurred to me . Never 10/30/2020 Area Deprivation Index Answer Date Ger rded National Score (1-100), lower number is lower ri sk 89 11/27/2022 State Score (1-10), lower number is lower risk N ot on file 11/27/2022 Data from: https://www.neighborhoodatlas.medicine.[facility].edu/. Last address used for calculation [address] [...] Contact Info) Description 09/30/2025 9:[address] [facility] Hematology/Oncology [address] [place] [address] [place] [address] OCREVUS documented as of this encounter Visit Diagnoses Not on filedocumented in this encounter Additional Health Concerns Infection Onset Date Last Indicated Resolved Time COVID-19 Rule-Out 02/12/2023 02/12/2023 02/13/2023 1:49 AM EDT COVID-19 Confirmed 02/12/2023 02/12/2023 8:51 PM EDT documented as of this encounter Care Teams Ends Down Checker Relationship Specialty Start Date End Date Rashard Lane MD [address] [place] [address] PCP - General Family Medicine 12/09/19 Juan Miguel Caballero [facility] 05/30/24 04/12/25 Olimpia Turpin, SENIOR SOFTWARE QUALITY ANALYST.WILDLIFE CONTROL AGENT [address] [place] [address] Lotus Notes Administrator Family Medicine 10/18/24 05/22/25 Maricruz Valdovinos PA-C [address] [place] [address] Lotus Notes Administrator Internal Medicine 10/18/24 11/11/24 [place] Hein, SENIOR SOFTWARE QUALITY ANALYST.WILDLIFE CONTROL AGENT [address] [place] [address] Lotus Notes Administrator Family Medicine 06/08/25 documented as of this encounter
--- OUTSIDE RECORDS SUMMARY | 2025-08-26 19:54 | XMS_ITS | Encounter Summary ---
Author Organization [facility] Address [address] [place] [address] Care Team Providers Care Brush Maker Name Role Phone Rashard Lane MD Primary Care Provider [phone] Encounter Details Date Type Department Care Team (Late st Contact Info) Description 09/08/2024 Clinisync Result Encounter [facility] External Department Unsolicited Jahaira Julio PA [address] [place] [address] Social History Tobacco Use Types Packs/Day Years [...] EDT Office Visit [facility] Sherry [facility]BG[facility] [address] [place] [address] Jahaira Julio PA [address] [place] [address] [place] [address] documented as of this encounter Procedures Procedure Name Priority Date/Time Associated Diagnosis Comments US OB CERVICAL LENGTH 09/08/2024 5:19 AM EDT documented in this encounter Results * US OB CERVICAL LENGTH (09/08/2024 5:19 AM EDT) Anatomical Region Laterality Modality Other 09/08/2024 5:19 AM EDT Narrative 09/08/2024 5:22 AM EDT [address] [address] Ultrasound Report Signed Patient: CAROL ANN ROMAN MR#: [id number] : 1985 Acct:[id number] Age/Sex: 39 / F ADM Date: 09/07/24 Loc: [facility] Attending Dr: Jahaira Julio Ordering Physician: Jahaira Julio Date of Service: 09/07/24 Procedure(s): US OB cervical length Accession Number(s): [id number] cc: Jahaira Julio; Physician,Non-Staff M.DAkash [address] [address] Patient Name: CAROL ANN ROMAN MRN: [id number] date: 1985 Sex: F Assigned Patient Location: [facility] Current Patient Location: Accession/Order Number: [id number] Exam Date: 09/07/2024 14:55 Report Date: 09/08/2024 [...] M.D. Signed By: 09/08/24521 DD/ 8 TD/TT: Stencil Cutter: Procedure Note Radiology, Radiologist, - 09/08/2024 [place] [address] Ultrasound Report Signed Patient: CAROL ANN ROMAN FMR#: [id number] : 1985Acct:[id number] Age/Sex: 39 / FADM Date: 09/07/24 Loc: [facility] Attending Dr: Jahaira Julio Ordering Physician: Jahaira Julio Date of Service: 09/07/24 Procedure(s): US OB cervical length Accession Number(s): [id number] cc: Jahaira Julio; Physician,Non-Staff M.Jong The [place] [id number] Patient Name: CAROL ANN ROMAN MRN: [id number] date: 1985 Sex: F Assigned Patient Location: [facility] Current Patient Location: Accession/Order Number: [id number] Exam Date: 09/07/2024 14:55 Report Date: 09/08/2024 [...] Britt M.D. Signed By:09/08/24521 DD/ 8 TD/TT: Stencil Cutter: us Jahaira GRIGGS [facility] Final Result documented in this encounter Visit Diagnoses Not on filedocumented in this encounter Care Teams Brush Maker Relationship Specialty [place] [address] [place] [address] PCP - General Pediatrics 10/26/23 documented as of this encounter
--- OUTSIDE RECORDS SUMMARY | 2025-08-26 19:54 | XMS_ITS | Encounter Summary ---
Author Organization [facility] Address [address] [place] [address] Care Team Providers Care Medical Physics Teacher Name Role Phone Rashard Lane MD Primary Care Provider [phone] Encounter Details Date Type Department Care Team (Late st Contact Info) Description 07/02/2024 Clinisync Result Encounter [facility] External Department Unsolicited Clarke Hu DO [address] [facility] [place] [address] Social History Tobacco Use Types Packs/Day Years [...] EDT Office Visit [facility] Sherry OBGYN [address] [place] [address] Jahaira Byers PA [address] [place] [address] [place] [address] documented as of this encounter Procedures Procedure [...] transvaginal ultrasound examination. View: Good us Clarke CERVANTESG OB US PROCEDURES Final Resul t documented in this encounter Visit Diagnoses Not on filedocumented in this encounter Care Teams Medical Physics Teacher Relationship Specialty [place] [address] [place] [address] PCP - General Pediatrics 10/26/23 documented as of this encounter
--- OUTSIDE RECORDS SUMMARY | 2025-08-26 19:54 | XMS_ITS | Encounter Summary ---
Author Organization [facility] Address [address] [place] [address] Care Team Providers Care Head Sulfide Operator Name Role Phone Janice Lane MD Primary Care Provider [phone] Encounter Details Date Type Department Care Team (Late st Contact Info) Description 06/08/2024 Clinisync Result Encounter [facility] External Department Unsolicited John Hu DO [address] [place] [address] Social History Tobacco Use Types Packs/Day Years [...] 1:00 PM EDT Office Visit [facility] Sherry JEWELL [address] [facility] [place] [address] Jahaira Byers PA [address] [place] [address] documented as of this encounter Procedures Procedure Name Priority Date/Time Associated Diagnosis Comments US OB CERVICAL LENGTH 06/08/2024 10:18 AM EDT documented in this encounter Results * US OB CERVICAL LENGTH (06/08/2024 10:18 AM EDT) Anatomical Region Laterality Modality Other 06/08/2024 10:1 8 AM EDT Narrative 06/08/2024 10:21 AM EDT [address] [address] Ultrasound Report Signed Patient: CAROL ANN ROMAN MR#: [id number] : 1985 Acct:[id number] Age/Sex: 38 / F ADM Date: 06/08/24 Loc: [facility] Attending Dr: John Hu D.O. Ordering Physician: John Hu D.O. Date of Service: 06/08/24 Procedure(s): US OB cervical length Accession Number(s): [id number] cc: John Hu D.O.; Physician,Non-Staff MJoana [address] [address] Patient Name: CAROL ANN ROMAN MRN: [id number] date: 1985 Sex: F Assigned Patient Location: [facility] Current Patient Location: [facility] Accession/Order Number: [id number] Exam Date: 06/08/2024 08:35 Report Date: 06/08/2024 [...] Signed By: 06/08/24 1021 DD/ 1018 TD/TT: Ingredient Handler: Procedure Note Radiology, Radiologist, MD - 06/08/2024 [place] [address] Ultrasound Report Signed Patient: CAROL ANN ROMAN R#: [id number] : 1985Acct:[id number] Age/Sex: 38 / FADM Date: 06/08/24 Loc: [facility] Attending Dr: John Hu D.O. Ordering Physician: John Hu D.O. Date of Service: 06/08/24 Procedure(s): US OB cervical length Accession Number(s): [id number] cc: John Hu D.O.; Physician,Non-Staff [place] [address] [place] [address] Patient Name: CAROL ANN ROMAN MRN: [id number] date: 1985 Sex: F Assigned Patient Location: [facility] Current Patient Location: [facility] Accession/Order Number: [id number] Exam Date: 06/08/2024 08:35 Report Date: 06/08/2024 [...] M.D. Signed By:06/08/24 1021 DD/ 1018 TD/TT: Ingredient Handler: us John Hu DO [facility] Final Result documented in this encounter Visit Diagnoses Not on filedocumented in this encounter Care Teams Head Sulfide Operator Relationship Specialty [place] [address] [place] [address] PCP - General Pediatrics 10/26/23 documented as of this encounter
--- OUTSIDE RECORDS SUMMARY | 2025-08-26 19:54 | XMS_ITS | Encounter Summary ---
Author Organization [facility] Address [address] [place] [address] Care Team Providers Care Education And Outreach Coordinator Name Role Phone Rashard Lane MD Primary Care Provider [phone] Encounter Details Date Type Department Care Team (Late st Contact Info) Description 09/28/2024 Clinisync Result Encounter [facility] External Department Unsolicited John Hu DO [address] [facility] [address] [place] [address] Social History Tobacco Use Types Packs/Day Years [...] EDT Office Visit [facility] Sherry OBGYN [address] [place] [address] Jahaira Byers PA [address] [place] [address] [place] [address] documented as of this encounter Procedures Procedure Name Priority Date/Time Associated Diagnosis Comments US OB GROWTH 09/28/2024 6:35 AM EST documented in this encounter Results * US OB GROWTH (09/28/2024 6:35 AM EST) Anatomical Region Laterality Modality Other 09/28/2024 6:35 AM EST Narrative 09/28/2024 6:38 AM EST The [address] [address] Ultrasound Report Signed Patient: CAROL ANN ROMAN MR#: [id number] : 1985 Acct:[id number] Age/Sex: 39 / F ADM Date: 09/27/24 Loc: [facility] Attending Dr: John Hu D.O. Ordering Physician: John Hu D.O. Date of Service: 09/27/24 Procedure(s): US OB growth Accession Number(s): [id number] cc: John Hu D.O.; Physician,Non-Staff M.Jong The [address] [address] Patient Name: CAROL ANN ROMAN MRN: [id number] date: 1985 Sex: F Assigned Patient Location: [facility] Current Patient Location: Accession/Order Number: [id number] Exam Date: 09/27/2024 13:40 Report Date: 09/28/2024 [...] Oz Britt M.D. Signed By: 09/28/2438 DD/ 4 TD/TT: Electronics Maintenance Technician: Procedure Note Radiology, Radiologist, MD - 09/28/2024 [place] [address] Ultrasound Report Signed Patient: CAROL ANN ROMAN FMR#: [id number] : 1985Acct:[id number] Age/Sex: 39 / FADM Date: 09/27/24 Loc: [facility] Attending Dr: John Hu D.O. Ordering Physician: John Hu D.O. Date of Service: 09/27/24 Procedure(s): US OB growth Accession Number(s): [id number] cc: John Hu D.O.; Physician,Non-Staff M.DAkash The [place] [address] Patient Name: CAROL ANN ROMAN MRN: [id number] date: 1985 Sex: F Assigned Patient Location: [facility] Current Patient Location: Accession/Order Number: [id number] Exam Date: 09/27/2024 13:40 Report Date: 09/28/2024 [...] Oz Britt M.D. Signed By:09/28/2438 DD/ TD/TT: Electronics Maintenance Technician: us John Mayte DO [facility] Final Result documented in this encounter Visit Diagnoses Not on filedocumented in this encounter Care Teams Education And Outreach Coordinator Relationship Specialty [place] [address] [place] [address] PCP - General Pediatrics 10/26/23 documented as of this encounter
--- OUTSIDE RECORDS SUMMARY | 2025-08-26 19:54 | XMS_ITS | Encounter Summary ---
Author Organization [facility] Address [facility] [place] [address] Care Team Providers Care Mammographer Name Role Phone Rashard Lane MD Primary Care Provider [phone] Juan Miguel Caballero [facility] Unavailable Unavailable Olimpia Turpin FIBERGLASS LAMINATOR.GENERAL CARGO CLERK Unavailable Maricruz Valdovinos PA-C Unavailable [phone] [place] Hein FIBERGLASS LAMINATOR.GENERAL CARGO CLERK Unavailable Source Comments In the event this information is protected by the Federal Confidentiality of Alcohol and Drug AbusePatient Records regulations: The Federal rules restrict any use of the information to criminally investigate or prosecute any alcohol or drug abuse patient.[facility] Encounter Details Date Type Department Care Team (Late st Contact Info) Description 01/21/2023 Get Medical Advice Neuropsychology [address] [place] [address] Anya Soto, PhD [address] [place] [address] Doctor note Social History Tobacco [...] Answer Date Recorded PHQ-2 score 0 01/13/2023 [facility] of Occupat ional Health - [...] in a chcf (including now)? No 12/16/2022 [place] Depression Scale Answer Date Recorded [place] Depression Scale Total 1 10/30/2020 The thought of harming myself has occurred to me . Never 10/30/2020 Area Deprivation Index Answer Date Ger rded National Score (1-100), lower number is lower ri sk 89 11/27/2022 State Score (1-10), lower number is lower risk N ot on file 11/27/2022 Data from: https://www.neighborhoodatlas.medicine.[facility].edu/. Last address used for calculation [...] st Contact Info) Description 09/30/2025 9:00 AM [facility] Hematology/Oncology [address] [place] [address] [place] [address] OCREVUS documented as of this encounter Visit Diagnoses Not on filedocumented in this encounter Additional Health Concerns Infection Onset Date Last Indicated Resolved Time COVID-19 Rule-Out 02/12/2023 02/12/2023 02/13/2023 1:49 AM EDT COVID-19 Confirmed 02/12/2023 02/12/2023 8:51 PM EDT documented as of this encounter Care Teams Mammographer Relationship Specialty Start Date End Date Rashard Lane MD [address] [place] [address] PCP - General Family Medicine 12/09/19 Juan Miguel Caballero, [facility] 05/30/24 04/12/25 Olimpia Turpin, FIBERGLASS LAMINATOR.GENERAL CARGO CLERK [address] [place] [address] Beating Machine Operator Family Medicine 10/18/24 05/22/25 Maricruz Valdovinos PA-C [address] [place] [address] Beating Machine Operator Internal Medicine 10/18/24 11/11/24 Indiana Hein, FIBERGLASS LAMINATOR.GENERAL CARGO CLERK [address] [place] [address] Beating Machine Operator Family Medicine 06/08/25 documented as of this encounter
--- OUTSIDE RECORDS SUMMARY | 2025-08-26 19:54 | XMS_ITS | Encounter Summary ---
Author Organization [facility] Address [address] [place] [address] [place] [address] Care Team Providers Care Waiter/Waitress Club Name Role Phone Rashard Lane MD Primary Care Provider [phone] Encounter Details Date Type Department Care Team (Late st Contact Info) Description 07/02/2024 Clinisync Result Encounter [facility] External Department Unsolicited Clarke Hu DO [address] [facility] [place] [address] Social History Tobacco Use Types Packs/Day Years [...] [facility] [place] [address] Jahaira Byers PA [address] [place] [address] [place] [address] documented as of this encounter Procedures Procedure [...] on filedocumented in this encounter Care Teams Waiter/Waitress Club Relationship Specialty [place] [address] [place] [address] PCP - General Pediatrics 10/26/23 documented as of this encounter
--- OUTSIDE RECORDS SUMMARY | 2025-08-26 19:54 | XMS_ITS | Encounter Summary ---
Author Organization [facility] Address [address] [place] [address] Care Team Providers Care Supervisor Diagnostic Name Role Phone Rashard Lane MD Primary Care Provider [phone] Juan Miguel Caballero [facility] Unavailable Unavailable Olimpia Turpin FISH CUTTER.CIVIL DRAFTER Unavailable Maricruz Valdovinos PA-C Unavailable [phone] [place] Hein FISH CUTTER.CIVIL DRAFTER Unavailable + [phone] Source Comments In the event this information is protected by the Federal Confidentiality of Alcohol and Drug AbusePatient Records regulations: The Federal rules restrict any use of the information to criminally investigate or prosecute any alcohol or drug abuse patient.[facility] Encounter Details Date Type Department Care Team (Late st Contact Info) Description 12/16/2022 Get Medical Advice Family Medicine [facility] [address] [place], [place] [phone] Rashard Lane MD [address] [place], [place] [address] COVID Social History Tobacco Use Types Packs/Day [...] any clubs o r organizations such as moravian groups, unions, fraternal or athletic groups, or [...] Answer Date Recorded PHQ-2 score 0 12/17/2022 [facility] of Occupat ional Health - Occupational [...] a nursing home (including now)? No 12/16/2022 [place] Depression Scale Answer Date Recorded [place] Depression Scale Total 1 10/30/2020 The thought of harming myself has occurred to me . Never 10/30/2020 Area Deprivation Index Answer Date Ger rded National Score (1-100), lower number is lower ri sk 89 11/27/2022 State Score (1-10), lower number is lower risk N ot on file 11/27/2022 Data from: https://www.neighborhoodatlas.medicine.[facility].edu/. Last address used for calculation [address] [...] as of this encounter Functional Status * AUDIT-C Score Answer Date of Assessment Author 0 12/16/2022 9:33 AM EST User, Mathew rand * Q1: How often do you have a drink containing alcohol? Answer Date of Assessment Author Never 12/16/2022 9:33 AM EST User, Mathew rand * Q2: How many drinks containing alcohol do you have on a typical day when you are drinking? Answer Date of Assessment Author Patient does not drink 12/16/2022 9:33 AM EST Us er, Mathewhart * Q3: How often do you have six or more drinks on one occasion? Answer Date of Assessment Author Never 12/16/2022 9:33 AM EST UserMathew rand * Are you deaf or do [...] st Contact Info) Description 09/30/2025 9:00 AM [facility] Hematology/Oncology [address] [place] [address] [place] [address] OCREVUS documented as of this encounter Visit Diagnoses Not on filedocumented in this encounter Additional Health Concerns Infection Onset Date Last Indicated Resolved Time COVID-19 Rule-Out 02/12/2023 02/12/2023 02/13/2023 1:49 AM EDT COVID-19 Confirmed 02/12/2023 02/12/2023 8:51 PM EDT documented as of this encounter Care Teams Supervisor Diagnostic Relationship Specialty Start Date End Date Rashard [address] MD [address] [place] [address] PCP - General Family Medicine 12/09/19 Juan Miguel Caballero [facility] 05/30/24 04/12/25 Olimpia Turpin, FISH CUTTER.CIVIL DRAFTER [address] [place] [address] Wood Tool Maker Family Medicine 10/18/24 05/22/25 Maricruz Valdovinos PA-C [address] [place] [address] Wood Tool Maker Internal Medicine 10/18/24 11/11/24 Indiana Hein, FISH CUTTER.CIVIL DRAFTER [address] [place] [address] Wood Tool Maker Family Medicine 06/08/25 documented as of this encounter
--- OUTSIDE RECORDS SUMMARY | 2025-08-26 19:54 | XMS_ITS | Encounter Summary ---
Author Organization [facility] Address [address] [place] [address] Care Team Providers Care Supervisor Felling Bucking Name Role Phone Janice Lane MD Primary Care Provider [phone] Encounter Details Date Type Department Care Team (Late st Contact Info) Description 07/27/2024 Clinisync Result Encounter [facility] External Department Unsolicited John Hu DO [address] [facility] [place] [address] Social History Tobacco Use Types Packs/Day Years [...] EDT Office Visit [facility] OBGYN [address] [place] [address] Jahaira Byers PA [address] [place] [address] [place] [address] [phone] (work) documented as of this encounter Procedures Procedure Name Priority Date/Time Associated Diagnosis Comments US OB CERVICAL LENGTH 07/27/2024 12:50 PM EDT documented in this encounter Results * US OB CERVICAL LENGTH (07/27/2024 12:50 PM EDT) Anatomical Region Laterality Modality Other 07/27/2024 12:5 0 PM EDT Narrative 07/27/2024 12:52 PM EDT [address] [address] Ultrasound Report Signed Patient: CAROL ANN ROMAN MR#: [id number] : 1985 Acct:[id number] Age/Sex: 38 / F ADM Date: 07/27/24 Loc: [facility] Attending Dr: John Hu D.O. Ordering Physician: John Hu D.O. Date of Service: 07/27/24 Procedure(s): US OB cervical length Accession Number(s): [id number] cc: John Hu D.O.; Physician,Non-Staff MJoana [address] [address] Patient Name: CAROL ANN ROMAN MRN: [id number] date: 1985 Sex: F Assigned Patient Location: [facility] Current Patient Location: [facility] Accession/Order Number: [id number] Exam Date: 07/27/2024 09:32 Report Date: 07/27/2024 [...] Dictated By: Janice Erwin M.D. Signed By: 07/27/241251 DD/ 49 TD/TT: Vice President Pharmacy: Procedure Note Radiology, Radiologist, MD - 07/27/2024 [place] [address] Ultrasound Report Signed Patient: CAROL ANN ROMAN FMR#: [id number] : 1985Acct:[id number] Age/Sex: 38 / FADM Date: 07/27/24 Loc: [facility] Attending Dr: John Hu D.O. Ordering Physician: John Hu D.O. Date of Service: 07/27/24 Procedure(s): US OB cervical length Accession Number(s): [id number] cc: John Hu D.O.; Physician,Non-Staff [place] [address] Patient Name: CAROL ANN ROMAN MRN: [id number] date: 1985 Sex: F Assigned Patient Location: [facility] Current Patient Location: [facility] Accession/Order Number: [id number] Exam Date: 07/27/2024 09:32 Report Date: 07/27/2024 [...] 12:50 Dictated By: Janice Erwin M.D. Signed By:07/27/241251 DD/ 49 TD/TT: Vice President Pharmacy: us John Hu DO [facility] Final Result documented in this encounter Visit Diagnoses Not on filedocumented in this encounter Care Teams Supervisor Felling Bucking Relationship Specialty [place] [address] [place] [address] PCP - General Pediatrics 10/26/23 documented as of this encounter
--- OUTSIDE RECORDS SUMMARY | 2025-08-26 19:54 | XMS_ITS | Encounter Summary ---
Author Organization [facility] Address [address] [place] [address] Care Team Providers Care Hired Help Name Role Phone Rashard Lane MD Primary Care Provider [phone] Juan Miguel Caballero [facility] Unavailable Unavailable Olimpia Turpin WARP PICKER.FURNACE BRAZER Unavailable Maricruz Valdovinos PA-C Unavailable [phone] Indiana Hein WARP PICKER.FURNACE BRAZER Unavailable + [phone] Source Comments In the event this information is protected by the Federal Confidentiality of Alcohol and Drug AbusePatient Records regulations: The Federal rules restrict any use of the information to criminally investigate or prosecute any alcohol or drug abuse patient.[facility] Encounter Details Date Type Department Care Team ([facility] Contact Info) Description 08/21/2021 Patient Msg CB/Gynecology [address] [place] [address] Provider, Ccf Appointment Social History Tobacco Use Types Packs/Day Years Used Date Smoking Tobacco: Never Smokeless Tobacco: Never Alcohol Use Standard Drinks/Week Comments Not Currently 0 (1 standard drink = 0.6 oz pur e alcohol) occas PHQ-2 Answer Date Recorded PHQ-2 score 0 02/08/2021 [place] Depression Scale Answer Date Recorded [place] Depression Scale Total 1 10/30/2020 The thought of harming myself has occurred to me . Never 10/30/2020 Area Deprivation Index Answer Date Ger rded National Score (1-100), lower number is lower ri sk Not on file 10/19/2020 State Score (1-10), lower number is lower risk N ot on file 10/19/2020 Data from: https://www.neighborhoodatlas.[facility]/. Last address used for calculation Not [...] 01/11/2021 4:00 PM EST Gomez Oliveira RN documented in this encounter Plan of Treatment Upcoming Encounters Date Type Department Care Team (Late st Contact Info) Description 09/30/2025 9:00 AM EST [facility] Hematology/Oncology [address] [place] [address] [place] [address] OCREVUS documented as of this encounter Visit Diagnoses Not on filedocumented in this encounter Additional Health Concerns Infection Onset Date Last Indicated Resolved Time COVID-19 Rule-Out 02/12/2023 02/12/2023 02/13/2023 1:49 AM EDT COVID-19 Confirmed 02/12/2023 02/12/2023 8:51 PM EDT documented as of this encounter Care Teams Hired Help Relationship Specialty Start Date End Date Rashard Lane MD [address] [place] [address] PCP - General Family Medicine 12/09/19 [facility] 05/30/24 04/12/25 Olimpia Turpin, WARP PICKER.FURNACE BRAZER [address] [place] [address] Site Supervisor Family Medicine 10/18/24 05/22/25 Maricruz Valdovinos PA-C [address] [place] [address] Site Supervisor Internal Medicine 10/18/24 11/11/24 Indiana Hein, WARP PICKER.FURNACE BRAZER [address] [place] [address] Site Supervisor Family Medicine 06/08/25 documented as of this encounter
--- OUTSIDE RECORDS SUMMARY | 2025-08-26 19:54 | XMS_ITS | Encounter Summary ---
Author Organization [facility] Address [address] [place] [address] Care Team Providers Care Microbiology Lab Assistant Name Role Phone Rashard Lane MD Primary Care Provider [phone] Encounter Details Date Type Department Care Team (Late st Contact Info) Description 10/04/2024 Abstract [facility] Sherry JEWELL [address] [address] Clarke Hu DO [address] [place] [address] Social History Tobacco Use Types Packs/Day Years [...] Office Visit [facility] JEWELL [address] [place] [address] Jahaira Byers PA [address] [place] [address] [place] [address] documented as of this encounter Visit Diagnoses Not on filedocumented in this encounter Care Teams Microbiology Lab Assistant Relationship Specialty [place] [address] [place], [place] [id number] PCP - General Pediatrics 10/26/23 documented as of this encounter
--- OUTSIDE RECORDS SUMMARY | 2025-08-26 19:54 | XMS_ITS | Encounter Summary ---
Author Organization [facility] Address [address] [place] [address] Care Team Providers Care Kettle Girl Name Role Phone Rashard Lane MD Primary Care Provider [phone] Encounter Details Date Type Department Care Team (Late st Contact Info) Description 10/04/2024 Abstract [facility] Sherry JEWELL [address] [place] [address] Clarke Hu DO [address] [facility] [place] [address] Social History Tobacco Use Types Packs/Day Years [...] Visit [facility] JEWE[facility] [address] [place] [address] Jahaira Byers PA [address] [place] [address] [place] [address] documented as of this encounter Visit Diagnoses Not on filedocumented in this encounter Care Teams Kettle Girl Relationship Specialty [place] [address] [place], [place] [address] PCP - General Pediatrics 10/26/23 documented as of this encounter
--- OUTSIDE RECORDS SUMMARY | 2025-08-26 19:54 | XMS_ITS | Encounter Summary ---
Author Organization [facility] Address [address] [place] [address] Care Team Providers Care Maintenance Controller Name Role Phone Rashard Lane MD Primary Care Provider [phone] Encounter Details Date Type Department Care Team (Late st Contact Info) Description 10/05/2024 Clinisync Result Encounter [facility]S External Department Unsolicited John Hu DO [address] [place] [address] Social History Tobacco Use Types Packs/Day Years [...] EDT Office Visit [facility] Sherry OBGYN [address] [place] [address] Jahaira Byers PA [address] [place] [address] [place] [address] [phone] (work) documented as of this encounter Procedures Procedure Name Priority Date/Time Associated Diagnosis Comments US OB CERVICAL LENGTH 10/05/2024 6:36 AM EST documented in this encounter Results * US OB CERVICAL LENGTH (10/05/2024 6:36 AM EST) Anatomical Region Laterality Modality Other 10/05/2024 6:36 AM EST Narrative 10/05/2024 6:38 AM EST [address] [address] Ultrasound Report Signed Patient: CAROL ANN ROMAN MR#: [id number] : 1985 Acct:[id number] Age/Sex: 39 / F ADM Date: 10/04/24 Loc: [facility] Attending Dr: John Hu D.O. Ordering Physician: John Hu D.O. Date of Service: 10/04/24 Procedure(s): US OB cervical length Accession Number(s): [id number] cc: John Hu D.O.; Physician,Non-Staff M.Jong [address] [address] Patient Name: CAROL ANN ROMAN MRN: [id number] date: 1985 Sex: F Assigned Patient [facility]: [facility] Current Patient Location: US Accession/Order Number: [id number] Exam Date: 10/04/2024 13:21 Report Date: 10/05/2024 [...] Dictated By: Oz Britt M.D. Signed By: 10/05/2438 DD/ 5 TD/TT: Technology Risk Intern: Procedure Note Radiology, Radiologist, MD - 10/05/2024 [place] [address] Ultrasound Report Signed Patient: CAROL ANN ROMAN FMR#: [id number] : 1985Acct:[id number] Age/Sex: 39 / FADM Date: 10/04/24 Loc: [facility] Attending Dr: John Hu D.O. Ordering Physician: John Hu D.O. Date of Service: 10/04/24 Procedure(s): US OB cervical length Accession Number(s): [id number] cc: John Hu D.O.; Physician,Non-Staff [place] [address] [place] [address] Patient Name: CAROL ANN ROMAN MRN: [facility]:[id number] date: 1985 Sex: F Assigned Patient Location: [facility] Current Patient Location: Accession/Order Number: [id number] Exam Date: 10/04/2024 13:21 Report Date: 10/05/2024 [...] 06:36 Dictated By: Oz Britt M.D. Signed By:10/05/2438 DD/ 5 TD/TT: Technology Risk Intern: us John Mayte DO [facility] Final Result documented in this encounter Visit Diagnoses Not on filedocumented in this encounter Care Teams Maintenance Controller Relationship Specialty [place] [address] [place] [address] PCP - General Pediatrics 10/26/23 documented as of this encounter
--- OUTSIDE RECORDS SUMMARY | 2025-08-26 19:54 | XMS_ITS | Encounter Summary ---
Author Organization [facility] Address [address] [place] [address] Care Team Providers Care Diamond Wheel Edger Name Role Phone Rashard Lane MD Primary Care Provider [phone] Encounter Details Date Type Department Care Team (Late st Contact Info) Description 10/05/2024 Clinisync Result Encounter [facility] External Department Unsolicited Clarke Hu DO [address] [facility] [place] [address] Social History Tobacco Use Types Packs/Day Years [...] [address] [place] [address] Jahaira Byers PA [address] [place] [address] [place] [address] documented as of this encounter Procedures Procedure [...] BPP and Dopplers. Delivery is recommended at 73r8p-80r4o. Please see note from today for details [...] EFW (oz) 13 oz EFW by: Hadlock (WFU-PI-OB-FL) Extended Service Desk Manager 5.8 mm Head / Face / [...] BPP and Dopplers. Delivery is recommended at 40y2s-94j6r. Please see note from today for details [...] EFW (oz) 13 oz EFW by: Hadlock (AUB-DZ-PW-FL) Extended Service Desk Manager 5.8 mm Head / Face / [...] BPP and Dopplers. Delivery is recommended at 35u9r-22y7c. Please see note from today for details [...] EFW (oz) 13 oz EFW by: Hadlock (BEV-QM-OP-FL) Extended Service Desk Manager 5.8 mm Head / Face / [...] 74.6 40% 276.2 24%259.2 51% 56.3 28% 940183% 09/17/2024 34w 2d 87.5 78% 311.8 29%288.9 17% 66.8 43% 940565% 10/05/2024 36w 6d 89.7 49% 326.4 27%304.3 6% 70.2 26% 861308% Impression ========= Patient here for growth ultrasound [...] weekly BPPand Dopplers. Delivery is recommended at 26o5r-23s5y. Please see note from today fordetails General [...] EFW (oz) 13 oz EFW by: Hadlock (DDY-EB-HD-FL) Extended Service Desk Manager 5.8 mm Head / Face / [...] 74.6 40% 276.2 24%259.2 51% 56.3 28% 801292% 09/17/2024 34w 2d 87.5 78% 311.8 29%288.9 17% 66.8 43% 377619% 10/05/2024 36w 6d 89.7 49% 326.4 27%304.3 6% 70.2 26% 076047% Impression ========= Patient here for growth ultrasound [...] weekly BPPand Dopplers. Delivery is recommended at 21o4l-51y2l. Please see note from today fordetails General [...] EFW (oz) 13 oz EFW by: Hadlock (GXR-TT-PT-FL) Extended Service Desk Manager 5.8 mm Head / Face / [...] 74.6 40% 276.2 24%259.2 51% 56.3 28% 002839% 09/17/2024 34w 2d 87.5 78% 311.8 29%288.9 17% 66.8 43% 224045% 10/05/2024 36w 6d 89.7 49% 326.4 27%304.3 6% 70.2 26% 500395% Impression ========= Patient here for growth ultrasound [...] weekly BPPand Dopplers. Delivery is recommended at 54v1f-91m0t. Please see note from today fordetails General [...] EFW (oz) 13 oz EFW by: Hadlock (PQA-WD-FV-FL) Extended Service Desk Manager 5.8 mm Head / Face / [...] on filedocumented in this encounter Care Teams Diamond Wheel Edger Relationship Specialty [place] [address] [place] [address] PCP - General Pediatrics 10/26/23 documented as of this encounter
--- OUTSIDE RECORDS SUMMARY | 2025-08-26 19:54 | XMS_ITS | Encounter Summary ---
Author Organization [facility] Address [address] [place] [address] Care Team Providers Care Room Service Attendant Name Role Phone Rashard Lane MD Primary Care Provider [phone] Encounter Details Date Type Department Care Team (Late st Contact Info) Description 10/12/2024 Clinisync Result Encounter [facility] External Department Unsolicited Clarke Hu DO [address] [facility] [place] [address] Social History Tobacco Use Types Packs/Day Years [...] EDT Office Visit [facility] Sherry OBGYN [address] [facility] [place] [address] Jahaira Byers PA [address] [place] [address] [place] [address] documented as of this encounter Procedures Procedure [...] no critical findings today to indicate delivery. [facility] visit prior to US today. Scheduled [...] no critical findings today to indicate delivery. [facility] visit prior to US today. Scheduled [...] no critical findings today to indicate delivery. [facility] visit prior to US today. Scheduled [...] 74.6 40% 276.2 24%259.2 51% 56.3 28% 284204% 09/17/2024 34w 2d 87.5 78% 311.8 29%288.9 17% 66.8 43% 751863% 10/05/2024 36w 6d 89.7 49% 326.4 27%304.3 6% 70.2 26% 240420% Impression ========= Patient presents at 37w6d for [...] 74.6 40% 276.2 24%259.2 51% 56.3 28% 688845% 09/17/2024 34w 2d 87.5 78% 311.8 29%288.9 17% 66.8 43% 237847% 10/05/2024 36w 6d 89.7 49% 326.4 27%304.3 6% 70.2 26% 265370% Impression ========= Patient presents at 37w6d for [...] 74.6 40% 276.2 24%259.2 51% 56.3 28% 512377% 09/17/2024 34w 2d 87.5 78% 311.8 29%288.9 17% 66.8 43% 723035% 10/05/2024 36w 6d 89.7 49% 326.4 27%304.3 6% 70.2 26% 094272% Impression ========= Patient presents at 37w6d for evaluation of well being in apregnancy with the following complications: multiple sclerosis, history ofLEEP, AMA, FGR by AC diagnosed at 34 weeks. - Normal amniotic fluid volume - BPP 06/17 -Normal doppler indices with an RI at the 62% percentile Reassuring status based on today's assessment. There are no criticalfindings today to indicate delivery. [facility] visit prior to US today. Scheduled [...] on filedocumented in this encounter Care Teams Room Service Attendant Relationship Specialty [place] [address] [place] [address] PCP - General Pediatrics 10/26/23 documented as of this encounter
--- OUTSIDE RECORDS SUMMARY | 2025-08-26 19:55 | XMS_ITS | Encounter Summary ---
Author Organization [facility] Address [address] [place] [address] Care Team Providers Care Applied Behavior Specialist Name Role Phone Rashard Lane MD Primary Care Provider Juan Miguel Caballero [facility] Unavailable Unavailable Olimpia Turpin DIRECTOR OF PLANNING.WAREHOUSE ORDER PULLER Unavailable Indiana Hein DIRECTOR OF PLANNING.WAREHOUSE ORDER PULLER Unavailable [phone] Source Comments In the event this information is protected by the Federal Confidentiality of Alcohol and Drug AbusePatient Records regulations: The Federal rules restrict any use of the information to criminally investigate or prosecute any alcohol or drug abuse patient.[facility] Encounter Details Date Type Department Care Team (Late st Contact Info) Description 03/15/2025 [facility] [address] [address] Anya Cast APRN.WAREHOUSE ORDER PULLER [address] [place] [address] Change [employer] location Social History [...] How often do you attend chur or christianity services? More than 4 times per year 02/24/2025 Do you belong to any clubs o r organizations such as gnosticism groups, unions, fraternal [...] Answer Date Recorded PHQ-2 score 2 03/10/2025 [facility] - Occupational Stress [...] a group home (including now)? No 12/16/2022 [place] Depression Scale Answer Date Recorded [place] Depression Scale Total 1 10/30/2020 The thought [...] degree (e.g., BA, AB, BS) 04/25/2022 Comments Yes Sex and Gender Information Value [...] Assessment Author No 01/11/2021 4:00 PM Gomez Catsellano RN * Do you have difficulty dressing [...] 09/30/2025 9:00 AM EST [facility] Hematology/Oncology [address] [place] [address] [place] [address] [place] documented as of this encounter Visit Diagnoses Not on filedocumented in this encounter Care Teams Applied Behavior Specialist Relationship Specialty Start Date End Date Rashard Lane MD [address] [place] [address] PCP - General Family Medicine 12/09/19 Juan Miguel Caballero [facility] 05/30/24 04/12/25 Olimpia Turpin, DIRECTOR OF PLANNING.WAREHOUSE ORDER PULLER [address] [place] [address] Vocal Performer Family Medicine 10/18/24 05/22/25 Indiana Hein, DIRECTOR OF PLANNING.WAREHOUSE ORDER PULLER [address] [place] [address] Vocal Performer Family Medicine 06/08/25 documented as of this encounter
--- OUTSIDE RECORDS SUMMARY | 2025-08-26 19:55 | XMS_ITS | Encounter Summary ---
Author Organization [facility] Address [address] [place] [address] Care Team Providers Care Alley Tender Name Role Phone Rashard Lane MD Primary Care Provider [phone] Reason for Visit * Reason Onset Date Comments Med Refill 08/23/2025 Encounter Details Date Type Department Care Team (Late st Contact Info) Description 08/23/2025 Refill ELO [place] [facility]BGYLu[facility] [address] [facility] [place] [phone] Camilla Rm LPN [address] [facility] [place] [address] 6 weeks follow-up ([facility]) Social History Tobacco Use Types Packs/Day Years [...] on file documented as of this encounter Miscellaneous Notes * Telephone Encounter - Camilla Rm LPN - 08/23/2025 2:57 PM EDT I was calling I was trying to get a prescription for the at [facility] in [place], [place]. They said the script is for the 3 month supply for the and I was just wanting to know ifI can get a new prescription rolled out because I am still and and of course I need them. So I do not know the number off hand, but I do not know if you guys can write another prescription for the for my pharmacy for the 3 month supply so I can get it every 3 months and they keep messing it up doing every month for some reason, even though you guys grow on their every 3 months. Patient was called and she was made aware script for 90 day was sent into the pharmacy for the patient. [facility] pharmacy verified. documented in this encounter Plan of Treatment Upcoming Encounters Date Type Department Care Team (Late st Contact Info) Description 04/17/2026 1:00 PM EDT Office Visit ELO JEWELL [address] [address] Jahaira Byers PA [address] [place] [address] documented as of this encounter Visit Diagnoses Diagnosis 6 weeks follow-up ([facility]) documented in this encounter Care Teams Alley Tender Relationship Specialty [place] [address] [place] [address] PCP - General Pediatrics 10/26/23 documented as of this encounter
--- OUTSIDE RECORDS SUMMARY | 2025-08-26 19:55 | XMS_ITS | Encounter Summary ---
Author Organization [facility] Address [address] [place] [place] [address] Care Team Providers Care Technology Education Instructor Name Role Phone Rashard Lane MD Primary Care Provider [phone] Encounter Details Date Type Department Care Team (Late st Contact Info) Description 04/25/2025 Orders Only [facility] Sherry JEWELL [address] [place] [address] Nora Gil LPN [address] [place] [address] Social History Tobacco Use Types [...] EDT Office Visit [facility]WE[facility] [address] [place] [address] Jahaira Byers PA [address] [place] [address] [place] [address] documented as of this encounter Procedures Procedure Name Priority Date/Time Associated Diagnosis Comments PAP SMEAR Routine 04/11/2025 12:00 AM EDT documented in this encounter Results * Pap Smear (04/11/2025 12:00 AM EDT) Swab Cervical swab / Unknown us [facility] ORDERABLES Final Re sult EXTERNAL LAB documented in this encounter Visit Diagnoses Not on filedocumented in this encounter Care Teams Technology Education Instructor Relationship Specialty [place] [address] [place] [address] PCP - General Pediatrics 10/26/23 documented as of this encounter
--- OUTSIDE RECORDS SUMMARY | 2025-08-26 19:55 | XMS_ITS | Encounter Summary ---
Author Organization [facility] Address [facility] [place] [id number] Care Team Providers Care Top Waddy Name Role Phone Rashard Lane MD Primary Care Provider [phone] Juan Miguel Caballero [facility] Unavailable Unavailable Olimpia Turpin PROOF PRESS OPERATOR.SKIN PILER Unavailable Maricruz Valdovinos PA-C Unavailable [phone] [place] Hein PROOF PRESS OPERATOR.SKIN PILER Unavailable [phone] Source Comments In the event this information is protected by the Federal Confidentiality of Alcohol and Drug AbusePatient Records regulations: The Federal rules restrict any use of the information to criminally investigate or prosecute any alcohol or drug abuse patient.[facility] Reason for Visit * Reason Comments Patient Update CMN- Nutrition Encounter Details Date Type Department Care Team (Late st Contact Info) Description 10/12/2024 [facility] [address] [id number] Anya Cast APRN.SKIN PILER [address] [place] [address] Patient Update (CMN- Nutrition) Social [...] any clubs o r organizations such as sabianism groups, unions, fraternal or athletic groups, or [...] Answer Date Recorded PHQ-2 score 0 07/19/2024 [facility] Occupat ional Health - Occupational Stress [...] in a correction (including now)? No 12/16/2022 [place] Depression Scale Answer Date Recorded [place] Depression Scale Total 1 10/30/2020 The thought of harming myself has occurred to me . Never 10/30/2020 Area Deprivation Index Answer Date Ger rded National Score (1-100), lower number is lower ri sk 93 07/17/2023 State Score (1-10), lower number is lower risk 9 07/17/2023 Data from: https://www.neighborhoodatlas.medicine.[facility].edu/. [...] Contact Info) Description 09/30/2025 9:00 AM EST [facility] Hematology/Oncology [address] [place] [address] [place] [address] OCREVUS documented as of this encounter Visit Diagnoses Not on filedocumented in this encounter Care Teams Top Waddy Relationship Specialty Start Date End Date Rashard Lane MD [address] [place] [address] PCP - General Family Medicine 12/09/19 Juan Miguel Caballero [facility] 05/30/24 04/12/25 Olimpia Turpin, PROOF PRESS OPERATOR.SKIN PILER [address] [place] [address] Head Of Maintenance Family Medicine 10/18/24 05/22/25 Maricruz Valdovinos PA-C [address] [place] [address] Head Of Maintenance Internal Medicine 10/18/24 11/11/24 Indiana Hein, CYNTHIA.SKIN PILER [address] [place] [address] Head Of Maintenance Family Medicine 06/08/25 documented as of this encounter
--- OUTSIDE RECORDS SUMMARY | 2025-08-26 19:55 | XMS_ITS | Encounter Summary ---
Author Organization [facility] Address [id number] [address] [place] [address] Care Team Providers Care Weight Loss Counselor Name Role Phone DomingoRashard parks Sneha Primary Care Provider [phone] Encounter Details Date Type Department Care Team ([facility] st Contact Info) Description 08/18/2020 Telephone [facility] [address] [place] [address] Es Weller, PharmD [address], [facility] [address] [place], [place] [id number] Social History Tobacco Use Types Packs/Day Years [...] via telephone call with Romelia Martin [facility]. Case [id number]. Decision will be made within 24-72 hours. documented in this encounter Plan of Treatment Not on file documented as of this encounter Goals Goal Patient Goal Type Associated Problems Recent Progress Patient-Stated? 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 documented as of this encounter Visit Diagnoses Not on filedocumented in this encounter Care Teams Weight Loss Counselor Relationship Specialty Start Date End Date [address] [address] [place] [address] PCP - General Family Medicine 12/22/19 documented as of this encounter
--- OUTSIDE RECORDS SUMMARY | 2025-08-26 19:55 | XMS_ITS | Encounter Summary ---
Author Organization [facility] Address [address] [place] [address] Care Team Providers Care Heel Trimmer Name Role Phone Rashard Lane MD Primary Care Provider Juan Miguel Caballero [facility] Unavailable Unavailable Olmipia Turpin EGG TRAYER.CALL OR CONTACT CENTRE MANAGER Unavailable Indiana Hein EGG TRAYER.CALL OR CONTACT CENTRE MANAGER Unavailable Source Comments In the event this information is protected by the Federal Confidentiality of Alcohol and Drug AbusePatient Records regulations: The Federal rules restrict any use of the information to criminally investigate or prosecute any alcohol or drug abuse patient.[facility] Encounter Details Date Type Department Care Team (Late st Contact Info) Description 02/22/2025 Patient Msg Family Medicine [facility] [address] [place] [address] MD [address] [facility] [place], [place] [phone] Appointment Request Social History Tobacco Use Types [...] do you attend chur or islam services? More than 4 times per year 02/24/2025 Do you belong to any clubs o r organizations such as restorationist groups, unions, fraternal or athletic groups, or [...] Answer Date Recorded PHQ-2 score 2 02/07/2025 [facility]at ional [facility] - Occupational [...] place to sleep or slept in a residential (including now)? No 12/16/2022 [place] Depression Scale Answer Date Recorded [place] Depression Scale Total 1 10/30/2020 The thought [...] is lower risk 9 07/17/2023 Data from: https://www.neighborhoodatlas.medicine.[facility].edu/. Last address used for calculation [address] 07/17/2023 Education Answer Date Recorded [...] Assessment Author 0 02/24/2025 7:40 AM EDT UserMathew * Q1: How often do you have a drink containing alcohol? Answer Date of Assessment Author Never 02/24/2025 7:40 AM EDT UserMathew * Q2: How many drinks containing alcohol do you have on a typical day when you are drinking? Answer Date of Assessment Author Patient does not drink 02/24/2025 7:40 AM EDT Us er, Estiven * Q3: How often do [...] st Contact Info) Description 09/30/2025 9:00 AM [facility] Hematology/Oncology [address] [place] [address] [place] [address] OCREVUS documented as of this encounter Visit Diagnoses Not on filedocumented in this encounter Care Teams Heel Trimmer Relationship Specialty Start Date End Date Rashard Lane MD [address] [place] [address] PCP - General Family Medicine 12/09/19 Juan Miguel Caballero [facility] 05/30/24 04/12/25 Olimpia Turpin, EGG TRAYER.CALL OR CONTACT CENTRE MANAGER [address] [place] [address] Business Operations Director Family Medicine 10/18/24 05/22/25 Indiana Hein, EGG TRAYER.CALL OR CONTACT CENTRE MANAGER [address] [place] [address] Business Operations Director Family Medicine 06/08/25 documented as of this encounter
--- OUTSIDE RECORDS SUMMARY | 2025-08-26 19:55 | XMS_ITS | Encounter Summary ---
Author Organization [facility] Address [address] [place] [address] Care Team Providers Care Sanitor Name Role Phone Janice Lane MD Primary Care Provider [phone] Encounter Details Date Type Department Care Team (Late st Contact Info) Description 05/25/2024 Clinisync Result Encounter [facility] External Department Unsolicited John Hu DO [address] [place] [address] Social History Tobacco Use Types Packs/Day Years [...] EDT Office Visit [facility]ry [facility]WE[facility] [address] [place] [id number] Jahaira Byers PA [address] [place] [address] documented as of this encounter Procedures Procedure Name Priority Date/Time Associated Diagnosis Comments US OB CERVICAL LENGTH 05/25/2024 2:13 PM EDT documented in this encounter Results * US OB CERVICAL LENGTH (05/25/2024 2:13 PM EDT) Anatomical Region Laterality Modality Other 05/25/2024 2:13 PM EDT Narrative 05/25/2024 2:15 PM EDT [address] [address] Ultrasound Report Signed Patient: CAROL ANN ROMNA MR#: [id number] : 1985 Acct:[id number] Age/Sex: 38 / F ADM Date: 05/25/24 Loc: US Attending Dr: John Hu D.O. Ordering Physician: John Hu D.O. Date of Service: 05/25/24 Procedure(s): US OB cervical length Accession Number(s): [id number] cc: John Hu D.O.; Physician,Non-Staff M.Jong [address] [address] Patient Name: CAROL ANN ROMAN MRN: [id number] date: 1985 Sex: F Assigned Patient Location: US Current Patient Location: US Accession/Order Number: [id number] Exam Date: 05/25/2024 13:16 Report Date: 05/25/2024 [...] Dictated By: Janice Erwin M.D. Signed By: 05/25/241414 DD/ 12 TD/TT: Pocket Creaser: Procedure Note Radiology, Radiologist, - 05/25/2024 [place] [address] Ultrasound Report Signed Patient: CAROL ANN ROMAN FMR#: [id number] : 1985Acct:[id number] Age/Sex: 38 / FADM Date: 05/25/24 Loc: US Attending Dr: John Hu D.O. Ordering Physician: John Hu D.O. Date of Service: 05/25/24 Procedure(s): US OB cervical length Accession Number(s): [id number] cc: John Hu D.O.; Physician,Non-Staff [place] [address] [place] [address] Patient Name: CAROL ANN ROMAN MRN: [id number] date: 1985 Sex: F Assigned Patient Location: US Current Patient Location: US Accession/Order Number: [id number] Exam Date: 05/25/2024 13:16 Report Date: 05/25/2024 [...] 14:13 Dictated By: Janice Erwin M.D. Signed By:05/25/241414 DD/ 12 TD/TT: Pocket Creaser: us John Hu DO [facility] Final Result documented in this encounter Visit Diagnoses Not on filedocumented in this encounter Care Teams Sanitor Relationship Specialty [place] [address] [place], [place] [id number] PCP - General Pediatrics 10/26/23 documented as of this encounter
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
--- OUTSIDE RECORDS SUMMARY | 2025-08-26 19:55 | XMS_ITS | CCD ---
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 with MS and insomnia, presenting for a physical. Physical Exam: - Carol Ann Martinez' first menstrual period since delivery began yesterday. - Carol Ann declines flu shot. - Recent blood work in March showed normal thyroid and vitamin D levels. Multiple Sclerosis: - Managed with Ocrevus infusions every 6 months; next infusion scheduled for September. - Previously prescribed Copaxone, but not currently taking it. - Carol Ann reports numbness in back and legs. - Unable to attend physical therapy due to time constraints. - Denies current pain down back or legs. Insomnia: - Managed by psychiatry with Seroquel, which has been effective in improving sleep. - Carol Ann has been taking Seroquel for 2-3 months; confirmed safe for use while . Right-Sided Sciatica: - Chronic right-sided sciatica since , persisting for approximately one year. - Pain localized from the lower back to the upper hip area; no longer radiates down the leg. - Aggravated by certain movements and lifting. - Chiropractic treatment twice a week provides temporary relief. - No x-rays performed. Upper Respiratory Symptoms: - Recent onset of crud thing causing low energy. - Evaluated at urgent care on Friday; prescribed Aflonex and an antibiotic. Family: - Carol Ann is and supplementing with formula. - Has a daughter who recently started school. Past Medical History: PAST MEDICAL HISTORY Diagnosis Date Abnormal Pap smear of cervix 2007 Anemia Costochondritis, acute 04/17/2021 Edema of lower extremity 04/17/2021 Multiple sclerosis (HCC) Seizure (HCC) POSSIBLE HISTORY OF Thyroid disease POSSIBLE HYPO IN THE PAST Surgical History: PAST SURGICAL HISTORY Procedure Laterality Date OFFICE LEEP 2007 Family History: FAMILY HISTORY Problem Relation Age of Onset No Ocular Disease Mother Schizophrenia Mother No Ocular Disease Father Prostate Cancer Father Seizures Paternal Aunt Social History: SOCIAL HISTORY[1] Home Medications: Current Outpatient Medications Medication Sig Dispense Refill LOTEMAX 0.5 % eye ointment Apply small amount to eyelid at bedtime for 3 nights in a row then use as needed but sparingly. QUEtiapine (SEROQUEL) 25 mg tablet Take 2-3 tablets by mouth daily at bedtime. May also take 1 tablet once daily as needed. 120 tablet 2 ketotifen fumarate (ZADITOR) 0.025 % (0.035 %) ophthalmic solution Use 1 drop in both eyes two times a day. 5 mL 1 M- PLUS 27 mg iron- 1 mg Take 1 tablet by mouth once daily. ergocalciferol 50,000 unit capsule (VITAMIN D2, DRISDOL) TAKE 1 CAPSULE BY MOUTH ONCE EVERY WEEK 12 capsule 3 magnesium oxide (MAG-OX) 400 mg (241.3 mg magnesium) tablet Take 1 tablet by mouth daily at bedtime. 30 tablet 5 cholecalciferol (VITAMIN D-3) 5,000 unit tab Take 1 tablet by mouth once daily. 90 tablet 3 ketoconazole (NIZORAL) 2 % shampoo 2-3 times weekly as body wash 125 mL 11 FERROUS SULFATE ORAL Take by mouth every 24 hours. multivitamin with minerals (MULTIPLE VITAMIN-MINERALS) tablet Take 1 tablet by mouth every 24 hours. ketoconazole (NIZORAL) 2 % cream Apply to affected area once daily. Apply qd 30 g 3 tiZANidine (ZANAFLEX) 2 mg tablet Take 1 tablet by mouth every 8 hours as needed. 90 tablet 3 VITAMIN B COMPLEX ORAL Take by mouth. fluticasone (FLONASE) 50 mcg/actuation nasal spray Use 1 [place] in each nostril once daily. 1 g 5 tobramycin (TOBREX) 0.3 % ophthalmic solution (Patient not taking: Reported on 05/23/2025) predniSONE (DELTASONE) 50 mg Take 25 pills per day. Take with food no later than 2 pm. (Patient not taking: Reported on 04/01/2025) 75 tablet 0 predniSONE (DELTASONE) 20 mg tablet Take 60mg (3 tabs) x 4 days, take 40mg (2 tabs) x 4 days, take 20mg (1 tab) x 4 days. To be taken AFTER high dose oral steroids (Patient not taking: Reported on 04/01/2025) 24 tablet 0 glatiramer (COPAXONE) 40 mg/mL injection Inject 40 mg subcutaneously every Friday, Friday, and Friday. (Patient not taking: Reported on 04/01/2025) 12 mL 5 methylPREDNISolone (MEDROL DOSE-PACK) 4 mg Dose-Pack Day 1: 6 tablets Day 2: 5 tablets Day 3: 4 tablets Day 4: 3 tablets Day 5: 2 tablets Day 6: 1 tablet mometasone (ELOCON) 0.1 % cream Apply to affected area once daily. (Patient not taking: Reported on 04/01/2025) 30 g 0 vitamin B complex with C-FA-CU-ZN renal vitamins (DIATX ZN) 5-1.5-25 mg tab Take by mouth every 24 hours. No curre (more content not included)... [facility] XR LUMBAR 3V AP/LAT/L5-S1on 07-20-2025 XR LUMBAR 3V AP/LAT/L5-S1 * * *Final [...] disc space heights. SI joints are unremarkable. IMPRESSION: No acute process or significant interval change from 03/04/2024. Rn Digestive: PSCB Transcribe Date/Time: Jul 25 2025 9:54A Dictated by : NATALIE GORDON MD This examination was interpreted and the report reviewed and electronically signed by: NATALIE GORDON MD on Jul 25 2025 9:57AM EST [id number] [facility] Laboratory - Microbiology an d Antimicrobial susceptibilityon 07-14-2025 SARS-CoV-2 (COVID-19) RNA DEIRDRE+probe Ql (Unsp spec) Negative Negative [facility] No Panel Informationon 07-14 [facility] S. pyogenes DNA DEIRDRE+probe No m (Unsp spec)on 07-14-2025 RESULT Negative Negative [facility] OCT OPTIC NERVE CIRRUS OU (B OTH EYES)on 05-23-2025 [facility] Radiology Study observation (narrative) [facility] VISUAL FIELD 24-2 OU (BOTH E YES)on 05-23-2025 [facility] Radiology Study observation (narrative) [facility] IGP,APTIMA HPV,AGE GDLNon AGE GDLN ACOG TESTING Note . [facility] Comment on above: TESTS RESULT FLAG UN ITS REF RANGE LAB Clinician Provided Cytology Information Source.............Cervix;Endocervix No. of containers..01 ThinPrep Vial Age Algo ACOG Yumi... 30-65 01 FLAG LEGEND: L-Low Normal,H-High Normal,LL-Alert Low,HH-Alert High <-Panic Low,>-Panic High,A-Abnormal,AA-Critical Abnormal Performed at: 01 =[facility] [place] [address] Olimpia Brooks MD, HPV APTIMA Negative Negative [facility] Comment on above: This nucleic acid am plification test detects fourteen high- risk HPV types (16,18,31,33,35,39,45,51,52,56,58,59,66,68) without differentiation. Performed at: = - [address], [place] [id number] [employer] Employee: Olimpia Brooks MD, Phone: [phone] Performed at: [address], [place] [id number] [employer] Employee: Olimpia Brooks MD, Phone: [phone] IGP, APTIMA HPV, RFX 16/18,45 Note . [facility] Comment on above: TESTS RESULT FLAG UN ITS REF RANGE LAB DIAGNOSIS: 02 NEGATIVE FOR INTRAEPITHELIAL LESION OR MALIGNANCY. THIS SPECIMEN WAS RESCREENED PART OF OUR [employer]IL FIELD EQUIPMENT MECHANIC SUPERVISOR PROGRAM. Specimen adequacy: 02 Satisfactory for evaluation. Endocervical and/or squamous metaplastic cells (endocervical component) are present. Performed by: 03 William Ma, Subeditor (ASC) QC reviewed by: 02 Lilo Puente, Subeditor ([facility]) . 02 Note: Note 02 The Pap smear is a screening test designed to aid in the detection of premalignant and malignant conditions of the uterine cervix. It is not a diagnostic procedure and should not be used as the sole means of detecting cervical cancer. Both false-positive and false-negative reports do occur. Test Methodology: Note 02 This liquid based ThinPrep(R) pap test was screened with the use of an image guided system. HPV Genotype Reflex Note 02 Criteria not met, HPV Genotype not performed. FLAG LEGEND: L-Low Normal,H-High Normal,LL-Alert Low,HH-Alert High <-Panic Low,>-Panic High,A-Abnormal,AA-Critical Abnormal Performed at: 02 [facility] [address] [address] Olimpia Brooks MD, 03 KWCYT [facility] [place] [facility] [address] [place] [address] Jeremi Casillas MD, BRUSH-SPATULA CERVIX ENDOCERVIX [facility] 04-01-2025 CNNURSE Nurse Visit ([facility]) -------- CAROL ANN MARTINEZ ([id number]) 1985 F Date Time Provider Department 04/01/25 9:00 AM VIRGEN NURSE ROGER RODRIGUEZ During your visit today, we recorded the following information about you: Melodie Stewart MA 04/01/2025 10:30 AM Signed Back office UA test performed. Results entered in [employer] and doctor notified. Melodie Stewart MA Referring Provider: TOR HERNANDEZ [[id number]] Allergies As of Date: 04/01/2025 Noted Allergy Reaction GLUTEN 03/19/2019 14 - [...] Vomiting More constipated More constipated Date Reviewed: 04/01/2025 Reviewed by: Stacey Clarke RN - Fully Assessed Primary Visit Diagnosis:High risk medication use [Z79.899] Order(s):UA DIP,URINE HCG (POC) [6597562] Order #: [id number] #:[id number] Prescriptions as of 04/01/2025 - QUEtiapine (SEROQUEL) 25 mg tablet Take 1-2 tablets by mouth two times a day as needed (anxiety and/or insomnia). - ketotifen fumarate (ZADITOR) 0.025 % (0.035 %) ophthalmic solution Use 1 drop in both eyes two times a day. - M-BLAKE PLUS 27 mg iron- 1 mg Take 1 tablet by mouth once daily. - predniSONE (DELTASONE) 50 mg Take 25 pills per day. Take with food no later than 2 pm. - predniSONE (DELTASONE) 20 mg tablet Take 60mg (3 tabs) x 4 days, take 40mg (2 tabs) x 4 days, take 20mg (1 tab) x 4 days. To be taken AFTER high dose oral steroids - glatiramer (COPAXONE) 40 mg/mL injection Inject 40 mg subcutaneously every Friday, Friday, and Friday. - ergocalciferol 50,000 unit capsule (VITAMIN D2, DRISDOL) TAKE 1 CAPSULE BY MOUTH ONCE EVERY WEEK - methylPREDNISolone (MEDROL DOSE-PACK) 4 mg Dose-Pack Day 1: 6 tablets Day 2: 5 tablets Day 3: 4 tablets Day 4: 3 tablets Day 5: 2 tablets Day 6: 1 tablet - mometasone (ELOCON) 0.1 % cream Apply to affected area once daily. - magnesium oxide (MAG-OX) 400 mg (241.3 [...] (FLONASE) 50 mcg/actuation nasal spray Use 1 [place] in each nostril once daily. Facility-Administered Medications as of 04/01/2025 - NaCl 0.9% iv infusion - diphenhydrAMINE 50 mg injection (BENADRYL) - hydrocortisone sodium succinate (PF) 100 mg injection (Solu-CORTEF) - EPINEPHrine 1 mg/mL (1 mL) 0.3 mg injection - sodium chloride 0.9 % (flush) 10-20 mL (BD POSIFLUSH) - sodium chloride 0.9 % (flush) 10-20 mL (BD POSIFLUSH) Problem List As Of Date 04/01/2025 Noted Resolved Multiple sclerosis (HCC) [G35] 11/15/2019 [...] [N83.519] 04/14/2018 Restless leg syndrome [G25.81] 07/28/2017 Somnolenc (more content not included)... [facility] 25(OH)D3 SerPl-mCncon 2024 25-hydroxyvitamin D3 [Mass/Vol] 41.6 ng/mL Normal 31.0-80.0 [facility] Comment on above: Order Comment: Speci men Type: BLOOD SPECIMENOrdering Facility: [facility] Address: [address] [place] [address] Performed By: #### V ZVG2, 1989-01 ####[facility] [id number] [address] [address] [place] [facility] 25-hydroxyvitamin D3 [Mass/V ol]on 03-17-2025 Interpretation and review of laboratory results Normal [facility] BLOOD TB SCREENon 03-17-2025 M. tuberculosis tuberculin stim IFN-g Ql (Bld) Negative Normal [facility] Comment on above: Order Comment: Speci men Type: BLOOD SPECIMENOrdering Facility: [facility] Address: [address] [place] [address] Performed By: #### I NFTBP ####[facility] [id number] [address] [address] [place] MITOGEN MINUS NIL >9.95 Normal >=0.50 [facility] Comment on above: Order Comment: Speci men Type: BLOOD SPECIMENOrdering Facility: [facility] Address: [address] [place] [address] Performed By: #### I NFTBP ####[facility] LABCLIA [id number] [place] [address] [place] TB GAMMA INTERPRETATION Infection with M. tuberculosis complex is unlikely. If latent tuberculosis infection is highly suspected, a negative result does not rule out the infection. Specimens from immunocompromised patients and those <5 years of age may show false negative results. In case of a contact investigation, please repeat 8-12 weeks after a known exposure. Normal [facility] Comment on above: Order Comment: Speci men Type: BLOOD SPECIMENOrdering Facility: [facility] Address: [address] [place] [address] Performed By: #### I NFTBP ####[facility] LABCLIA [id number] [address] OF [place] TB NIL 0.05 IU/mL Normal <=8.00 [facility] Comment on above: Order Comment: Speci men Type: BLOOD SPECIMENOrdering Facility: [facility] Address: [address] [place] [address] Performed By: #### I NFTBP ####[facility] LABCLIA [id number] [place] [address] [place] TB1 AG MINUS NIL 0.00 IU/mL Normal <0.35 [facility] Comment on above: Order Comment: Speci men Type: BLOOD SPECIMENOrdering Facility: [facility] Address: [address] [place] [address] Performed By: #### I NFTBP ####[facility] LABCLIA [id number] [place] [id number] [place] TB2 AG MINUS NIL 0.00 IU/mL Normal <0.35 [facility] Comment on above: Order Comment: Speci men Type: BLOOD SPECIMENOrdering Facility: [facility] Address: [address] [place] [address] Performed By: #### I NFTBP ####[facility] LABCLIA [id number] [place] [address] [place] CBC W Auto Differential pane l (Bld)on 03-17-2025 Basophils (Bld) [#/Vol] 0.05 10*3/uL [facility] Basophils/100 WBC (Bld) 0.7 % [facility] Differential cell count method Nom (Bld) Auto [facility] Eosinophils (Bld) [#/Vol] 0.08 10*3/uL [facility] Eosinophils/100 WBC (Bld) 1.1 % [facility] Erythrocyte distribution width (RBC) [Ratio] 14 % 11.5 - 15.0 % [facility] Hematocrit (Bld) [Volume fraction] 41.8 % 36.0 - 46.0 % [facility] Hemoglobin (Bld) [Mass/Vol] 13.3 g/dL 11.5 - 15.5 g/dL [facility] Immature granulocytes (Bld) [#/Vol] [facility] Immature granulocytes/100 WBC (Bld) 0.3 % [facility] Lymphocytes (Bld) [#/Vol] 1.65 10*3/uL [facility] Lymphocytes/100 WBC (Bld) 23.5 % [facility] MCH (RBC) [Entitic mass] 26.1 pg 26.0 - 34.0 pg [facility] MCHC (RBC) [Mass/Vol] 31.8 g/dL 30.5 - 36.0 g/dL [facility] MCV (RBC) [Entitic vol] 82 fL 80.0 - 100.0 fL [facility] Monocytes (Bld) [#/Vol] 0.63 10*3/uL [facility] Monocytes/100 WBC (Bld) 9 % [facility] Neutrophils (Bld) [#/Vol] 4.58 10*3/uL [facility] Neutrophils/100 WBC (Bld) 65.4 % [facility] Nucleated RBC (Bld) [#/Vol] [facility] Nucleated RBC/100 WBC (Bld) [Ratio] 0 % /100 WBC [facility] Platelet mean volume (Bld) [Entitic vol] 12.5 fL 9.0 - 12.7 fL [facility] Platelets (Bld) [#/Vol] 202 10*3/uL [facility] RBC (Bld) [#/Vol] 5.1 10*6/uL 3.90 - 5.2 0 m/uL [facility] WBC (Bld) [#/Vol] 7.01 10*3/uL [facility] Basophils (Bld) [#/Vol] 0.05 10*3/uL Normal <0.11 [facility] Comment on above: Order Comment: Speci men Type: BLOOD SPECIMENOrdering Facility: [facility] Address: [address] [place] [address] Performed By: #### 5 7021-8 ####[facility] LABCLIA [id number] [place] [address] Basophils/100 WBC (Bld) 0.7 % [facility] Comment on above: Order Comment: Speci men Type: BLOOD SPECIMENOrdering Facility: [facility] Address: [address] [place] [address] Performed By: #### 5 7021-8 ####[facility] LABCLIA [id number] [place] [address] Differential cell count method Nom (Bld) Auto Normal [facility] Comment on above: Order Comment: Speci men Type: BLOOD SPECIMENOrdering Facility: [facility] Address: [address] [place] [address] Performed By: #### 5 7021-8 ####[facility] LABCLIA [id number] [place] [address] Eosinophils (Bld) [#/Vol] 0.08 10*3/uL Normal <0.46 [facility] Comment on above: Order Comment: Speci men Type: BLOOD SPECIMENOrdering Facility: [facility] Address: [address] [place] [address] Performed By: #### 5 7021-8 ####[facility] LABCLIA [id number] [place] [address] Eosinophils/100 WBC (Bld) 1.1 % Normal [facility] Comment on above: Order Comment: Speci men Type: BLOOD SPECIMENOrdering Facility: [facility] Address: [address] [place] [address] Performed By: #### 5 7021-8 ####[facility] LABCLIA [id number] [place] [address] Erythrocyte distribution width (RBC) [Ratio] 14.0 % Normal 11.5-15.0 [facility] Comment on above: Order Comment: Speci men Type: BLOOD SPECIMENOrdering Facility: [facility] Address: [address] [place] [address] Performed By: #### 5 7021-8 ####[facility] LABCLIA [id number] [place] [address] Hematocrit (Bld) [Volume fraction] 41.8 % Normal 36.0-46.0 [facility] Comment on above: Order Comment: Speci men Type: BLOOD SPECIMENOrdering Facility: [facility] Address: [address] [place] [address] Performed By: #### 5 7021-8 ####[facility] LABCLIA [id number] [place] [address] Hemoglobin (Bld) [Mass/Vol] 13.3 g/dL Normal 11.5-15.5 [facility] Comment on above: Order Comment: Speci men Type: BLOOD SPECIMENOrdering Facility: [facility] Address: [address] [place] [address] Performed By: #### 5 7021-8 ####[facility] LABCLIA [id number] [place] [address] Immature granulocytes (Bld) [#/Vol] 10*3/uL Normal <0.10 [facility] Comment on above: Order Comment: Speci men Type: BLOOD SPECIMENOrdering Facility: [facility] Address: [address] [place] [address] Performed By: #### 5 7021-8 ####[facility] LABCLIA [id number] [place] [address] Immature granulocytes/100 WBC (Bld) 0.3 % Normal [facility] Comment on above: Order Comment: Speci men Type: BLOOD SPECIMENOrdering Facility: [facility] Address: [address] [place] [address] Performed By: #### 5 7021-8 ####[facility] LABCLIA [id number] [place] [address] Lymphocytes (Bld) [#/Vol] 1.65 10*3/uL Normal 1.00-4.00 [facility] Comment on above: Order Comment: Speci men Type: BLOOD SPECIMENOrdering Facility: [facility] Address: [address] [place] [address] Performed By: #### 5 7021-8 ####[facility] LABCLIA [id number] [place] [address] Lymphocytes/100 WBC (Bld) 23.5 % Normal [facility] Comment on above: Order Comment: Speci men Type: BLOOD SPECIMENOrdering Facility: [facility] Address: [address] [place] [address] Performed By: #### 5 7021-8 ####[facility] LABCLIA [id number] [place] [address] MCH (RBC) [Entitic mass] 26.1 pg Normal 26.0-34.0 [facility] Comment on above: Order Comment: Speci men Type: BLOOD SPECIMENOrdering Facility: [facility] Address: [address] [place] [address] Performed By: #### 5 7021-8 ####[facility] LABCLIA [id number] [place] [address] MCHC (RBC) [Mass/Vol] 31.8 g/dL Normal 30.5-36.0 [facility] Comment on above: Order Comment: Speci men Type: BLOOD SPECIMENOrdering Facility: [facility] Address: [address] [place] [address] Performed By: #### 5 7021-8 ####[facility] LABCLIA [id number] [place] [address] MCV (RBC) [Entitic vol] 82.0 fL Normal 80.0-100.0 [facility] Comment on above: Order Comment: Speci men Type: BLOOD SPECIMENOrdering Facility: [facility] Address: [address] [place] [address] Performed By: #### 5 7021-8 ####[facility] LABCLIA [id number] [place] [address] Monocytes (Bld) [#/Vol] 0.63 10*3/uL Normal <0.87 [facility] Comment on above: Order Comment: Speci men Type: BLOOD SPECIMENOrdering Facility: [facility] Address: [address] [place] [address] Performed By: #### 5 7021-8 ####[facility] LABCLIA [id number] [place] [address] Monocytes/100 WBC (Bld) 9.0 % Normal [facility] Comment on above: Order Comment: Speci men Type: BLOOD SPECIMENOrdering Facility: [facility] Address: [address] [place] [address] Performed By: #### 5 7021-8 ####[facility] LABCLIA [id number] [place] [address] Neutrophils (Bld) [#/Vol] 4.58 10*3/uL Normal 1.45-7.50 [facility] Comment on above: Order Comment: Speci men Type: BLOOD SPECIMENOrdering Facility: [facility] Address: [address] [place] [address] Performed By: #### 5 7021-8 ####[facility]ON[facility] LABCLIA [id number] [place] [address] Neutrophils/100 WBC (Bld) 65.4 % Normal [facility] Comment on above: Order Comment: Speci men Type: BLOOD SPECIMENOrdering Facility: [facility] Address: [address] [place] [address] Performed By: #### 5 7021-8 ####[facility] LABCLIA [id number] [place] [address] Nucleated RBC (Bld) [#/Vol] 10*3/uL Normal <0.01 [facility] Comment on above: Order Comment: Speci men Type: BLOOD SPECIMENOrdering Facility: [facility] Address: [address] [place] [address] Performed By: #### 5 7021-8 ####[facility] LABCLIA [id number] [place] [address] Nucleated RBC/100 WBC (Bld) [Ratio] 0.0 /100 WBC Normal [facility] Comment on above: Order Comment: Speci men Type: BLOOD SPECIMENOrdering Facility: [facility] Address: [address] [place] [address] Performed By: #### 5 7021-8 ####[facility] LABCLIA [id number] [place] [address] Platelet mean volume (Bld) [Entitic vol] 12.5 fL Normal 9.0-12.7 [facility] Comment on above: Order Comment: Speci men Type: BLOOD SPECIMENOrdering Facility: [facility] Address: [address] [place] [address] Performed By: #### 5 7021-8 ####[facility] LABCLIA [id number] [place] [address] Platelets (Bld) [#/Vol] 202 10*3/uL Normal 150-400 [facility] Comment on above: Order Comment: Speci men Type: BLOOD SPECIMENOrdering Facility: [facility] Address: [address] [place], [place] [address] Performed By: #### 5 7021-8 ####[facility]ITAL[facility]ON[facility] LABIA [id number] [place] [address] RBC (Bld) [#/Vol] 5.10 10*6/uL Normal 3.90-5.20 [facility] Comment on above: Order Comment: Speci men Type: BLOOD SPECIMENOrdering Facility: [facility] Address: [address] [place], [place] [address] Performed By: #### 5 7021-8 ####SUSANNYVERONIKA [facility] LABIA [id number] [place] [address] WBC (Bld) [#/Vol] 7.01 10*3/uL Normal 3.70-11.00 [facility] Comment on above: Order Comment: Speci men Type: BLOOD SPECIMENOrdering Facility: [facility] Address: [address] [place], [place] [address] Performed By: #### 5 7021-8 ####[facility] HOSPITALVERONIKA [facility] [id number] [place] [address] CNNURSEon 03-17-2025 [facility] Nurse Visit (HEMASA) -------- CAROL ANN MARTINEZ ([id number]) 1985 F Date Time Provider Department 03/17/25 8:45 AM VIRGEN NURSE ROGER RODRIGUEZ During your visit today, we recorded the following information about you: Virgen Hahn MA 03/17/2025 11:22 AM Signed Urine HCG test performed as ordered. Virgen Hahn MA Referring Provider: TOR HERNANDEZ [[id number]] Allergies As of Date: 03/17/2025 Noted Allergy Reaction GLUTEN 03/19/2019 14 - [...] Vomiting More constipated More constipated Date Reviewed: 03/11/2025 Reviewed by: Tor Hernandez APRN.LIQUEFACTION PLANT OPERATOR - Fully Assessed Primary Visit Diagnosis:High risk medication use [Z79.899] Prescriptions as of 03/17/2025 - QUEtiapine (SEROQUEL) 25 mg tablet Take 1-2 tablets by mouth two times a day as needed (anxiety and/or insomnia). - ketotifen fumarate (ZADITOR) 0.025 % (0.035 %) ophthalmic solution Use 1 drop in both eyes two times a day. - M-BLAKE PLUS 27 mg iron- 1 mg Take 1 tablet by mouth once daily. - valACYclovir (VALTREX) 500 mg tablet Take 500 mg by mouth. - predniSONE (DELTASONE) 50 mg Take 25 pills per day. Take with food no later than 2 pm. - predniSONE (DELTASONE) 20 mg tablet Take 60mg (3 tabs) x 4 days, take 40mg (2 tabs) x 4 days, take 20mg (1 tab) x 4 days. To be taken AFTER high dose oral steroids - glatiramer (COPAXONE) 40 mg/mL injection Inject 40 mg subcutaneously every Friday, Friday, and Friday. - ergocalciferol 50,000 unit capsule (VITAMIN D2, DRISDOL) TAKE 1 CAPSULE BY MOUTH ONCE EVERY WEEK - methylPREDNISolone (MEDROL DOSE-PACK) 4 mg Dose-Pack Day 1: 6 tablets Day 2: 5 tablets Day 3: 4 tablets Day 4: 3 tablets Day 5: 2 tablets Day 6: 1 tablet - mometasone (ELOCON) 0.1 % cream Apply to affected area once daily. - magnesium oxide (MAG-OX) 400 mg (241.3 [...] (FLONASE) 50 mcg/actuation nasal spray Use 1 [place] in each nostril once daily. Facility-Administered Medications as of 03/17/2025 - NaCl 0.9% iv infusion - diphenhydrAMINE 50 mg injection (BENADRYL) - hydrocortisone sodium succinate (PF) 100 mg injection (Solu-CORTEF) - EPINEPHrine 1 mg/mL (1 mL) 0.3 mg injection - sodium chloride 0.9 % (flush) 10-20 mL (BD POSIFLUSH) Problem List As Of Date 03/17/2025 Noted Resolved Multiple sclerosis (HCC) [G35] 11/15/2019 [...] Syncope and collapse [R55] 12/04/2018 07/17/2023 Cognitive commun (more content not included)... Normal [facility] Comprehensive metabolic 2000 panelOrdered By: Alcides Beyer on 03-17-2025 Albumin [Mass/Vol] 4.4 g/dL 3.9 - 4.9 g/dL [facility] ALP [Catalytic activity/Vol] 96 U/L 34 - 123 U/L [facility] ALT [Catalytic activity/Vol] 18 U/L 7 - 38 U/L [facility] Anion gap [Moles/Vol] 13 mmol/L 8 - 15 mmol/L [facility] AST [Catalytic activity/Vol] 18 U/L 13 - 35 U/L [facility] Bilirubin [Mass/Vol] 0.4 mg/dL 0.2 - 1 .3 mg/dL [facility] Calcium [Mass/Vol] 9.7 mg/dL 8.5 - 10. 2 mg/dL [facility] Chloride [Moles/Vol] 108 mmol/L High 98 - 10 7 mmol/L [facility] CO2 [Moles/Vol] 23 mmol/L 22 - 30 mmol/L [facility] Creatinine [Mass/Vol] 0.78 mg/dL 0.58 - 0.96 mg/dL [facility] GFR/1.73 sq M.predicted among non-blacks MDRD (S/P/Bld) [Vol rate/Area] 99 mL/min/{1.73_m2} - PINF [facility] Comment on above: Estimated Glomerular Filtration Rate (eGFR) is calculated using the 2020 CKD-EPI creatinine equation. This equation utilizes serum creatinine, sex, and age as parameters. The creatinine assay has traceable calibration to isotope dilution-mass spectrometry. Refer to KDIGO guidelines for clinical interpretation. In patients with unstable renal function, e.g. those with acute kidney injury, the eGFR may not accurately reflect actual GFR. Glucose [Mass/Vol] 100 mg/dL High 74 - 99 mg/dL [facility] Comment on above: The [place] Diabete s Association (ADA) provides guidance for cutoff values [...] Standards of Medical Care in Diabetes 2016, [place] Diabetes Association. Diabetes Care. 2016.39(Suppl 1). Interpretation and review of laboratory results Abnormal [facility] Potassium [Moles/Vol] 3.6 mmol/L Low 3.7 - 5.1 mmol/L [facility] Protein [Mass/Vol] 7.2 g/dL 6.3 - 8.0 g/dL [facility] Sodium [Moles/Vol] 144 mmol/L 136 - 144 mmol/L [facility] Urea nitrogen [Mass/Vol] 18 mg/dL 7 - 21 mg/dL [facility] Comprehensive metabolic 2000 panelon 03-17-2025 Albumin [Mass/Vol] 4.4 g/dL Normal 3.9-4.9 [facility] Comment on above: Order Comment: Speci men Type: BLOOD SPECIMENOrdering Facility: [facility] Address: [address] [place] [address] Performed By: #### 2 4323-8 ####SUSANNYVERONIKA [facility] LABCLIA [id number] [place] [address] ALP [Catalytic activity/Vol] 96 U/L Normal 34-123 [facility] Comment on above: Order Comment: Speci men Type: BLOOD SPECIMENOrdering Facility: [facility] Address: [address] [place] [address] Performed By: #### 2 4323-8 ####[facility] LABCLIA [id number] [place] [address] ALT [Catalytic activity/Vol] 18 U/L Normal 7-38 [facility] Comment on above: Order Comment: Speci men Type: BLOOD SPECIMENOrdering Facility: [facility] Address: [address] [place] [address] Performed By: #### 2 4323-8 ####[facility] HOSPITALVERONIKA [facility] LABCLIA [id number] [place] [address] Anion gap [Moles/Vol] 13 mmol/L Normal 8-15 [facility] Comment on above: Order Comment: Speci men Type: BLOOD SPECIMENOrdering Facility: [facility] Address: [address] [place] [address] Performed By: #### 2 4323-8 ####[facility] LABCLIA [id number] [place] [address] AST [Catalytic activity/Vol] 18 U/L Normal 13-35 [facility] Comment on above: Order Comment: Speci men Type: BLOOD SPECIMENOrdering Facility: [facility] Address: [address] [place] [address] Performed By: #### 2 4323-8 ####[facility] LABCLIA [id number] [place] [address] Bilirubin [Mass/Vol] 0.4 mg/dL Normal 0.2-1.[address] [facility] Comment on above: Order Comment: Speci men Type: BLOOD SPECIMENOrdering Facility: [facility] Address: [address] [place] [address] Performed By: #### 2 4323-8 ####[facility] LABCLIA [id number] [place] [address] Calcium [Mass/Vol] 9.7 mg/dL Normal 8.5-10.2 [facility] Comment on above: Order Comment: Speci men Type: BLOOD SPECIMENOrdering Facility: [facility] Address: [address] [place] [address] Performed By: #### 2 4323-8 ####[facility] LABCLIA [id number] [place] [address] Chloride [Moles/Vol] 108 mmol/L High 98-[address] [facility] Comment on above: Order Comment: Speci men Type: BLOOD SPECIMENOrdering Facility: [facility] Address: [address] [place] [address] Performed By: #### 2 4323-8 ####[facility] LABCLIA [id number] [place] [address] CO2 [Moles/Vol] 23 mmol/L Normal 22-30 [facility] Comment on above: Order Comment: Speci men Type: BLOOD SPECIMENOrdering Facility: [facility] Address: [address] [place] [address] Performed By: #### 2 4323-8 ####[facility] LABCLIA [id number] [place] [address] Creatinine [Mass/Vol] 0.78 mg/dL Normal 0.58-0.96 [facility] Comment on above: Order Comment: Speci men Type: BLOOD SPECIMENOrdering Facility: [facility] Address: [address] [place], [place] [address] Performed By: #### 2 4323-8 ####[facility] LABCLIA [id number] [place] [address] Creatinine and Glomerular filtration rate.predicted panel (S/P/Bld) 99 mL/min/1.73m??? Normal >=60 [facility] Comment on above: Order Comment: Speci men Type: BLOOD SPECIMENOrdering Facility: [facility] Address: [address] [place] [address] Result Comment: Priscila mated Glomerular Filtration Rate [...] actual GFR. Performed By: #### 2 4323-8 ####[facility] LABCLIA [id number] [place] [address] Glucose [Mass/Vol] 100 mg/dL High 74-99 [facility] Comment on above: Order Comment: Evai gissel Type: BLOOD SPECIMENOrdering Facility: [facility] Address: [address] [place] [address] Result Comment: The [place] Diabetes Association (ADA) provides guidance for cutoff [...] Standards of Medical Care in Diabetes 2016, [place] Diabetes Association. Diabetes Care. 2016.39(Suppl 1). Performed By: #### 2 4323-8 ####[facility] LABCLIA [id number] [place] [address] Potassium [Moles/Vol] 3.6 mmol/L Low 3.7-5.1 [facility] Comment on above: Order Comment: Speci men Type: BLOOD SPECIMENOrdering Facility: [facility] Address: [address] [place] [address] Performed By: #### 2 4323-8 ####[facility] LABCLIA [id number] [place] [address] Protein [Mass/Vol] 7.2 g/dL Normal 6.3-8.0 [facility] Comment on above: Order Comment: Speci men Type: BLOOD SPECIMENOrdering Facility: [facility] Address: [address] [place] [address] Performed By: #### 2 4323-8 ####[facility] LABCLIA [id number] [place] [address] Sodium [Moles/Vol] 144 mmol/L Normal 136-144 [facility] Comment on above: Order Comment: Speci men Type: BLOOD SPECIMENOrdering Facility: [facility] Address: [address] [place] [address] Performed By: #### 2 4323-8 ####[facility] LABCLIA [id number] [place] [address] Urea nitrogen [Mass/Vol] 18 mg/dL Normal 7-21 [facility] Comment on above: Order Comment: Speci men Type: BLOOD SPECIMENOrdering Facility: [facility] Address: [address] [place] [address] Performed By: #### 2 4323-8 ####[facility] LABCLIA [id number] [place] [address] HBV core Ab Ql (S)on Interpretation and review of laboratory results Normal [facility] HBV core Ab Ser Qlon HBV core Ab Ql (S) Negative Normal Negative [facility] Comment on above: Order Comment: Speci men Type: BLOOD SPECIMENOrdering Facility: [facility] Address: [address] [place] [address] Result Comment: No e vidence of current or past infection with Hepatitis B virus. Should recent infection be suspected, repeat testing may be considered 3-4 weeks after this draw. Performed By: #### 2 2322-2, 96888-0, 5-3 ####[facility] LABCLIA [id number] [place] [address] [place] HBV surface Ab Ql (S)on HBV surface Ab Qn (S) 416.33 mIU/mL [facility] Comment on above: <8 mIU/mL: No serolo gical evidence of immunity to Hepatitis B Virus. >/= 8 to <12 mIU/mL: No serological evidence of immunity to Hepatitis B Virus. >/= 12 mIU/mL: Consistent with serological evidence of immunity to Hepatitis B Virus. [facility] HBV surface Ab Qn (S) 416.33 mIU/mL Normal [facility] Comment on above: Order Comment: Speci men Type: BLOOD SPECIMENOrdering Facility: [facility] Address: [address] [place] [address] Result Comment: <8 m IU/mL: No serological evidence of immunity to Hepatitis B Virus. >/= 8 to <12 mIU/mL: No serological evidence of immunity to Hepatitis B Virus. >/= 12 mIU/mL: Consistent with serological evidence of immunity to Hepatitis B Virus. Performed By: #### 2 2322-2, 38333-3, 5194-3 ####[facility] LABCLIA [id number] [place] [address] [place] HBV surface Ab Ser Qlon HBV surface Ab Ql (S) Positive Normal [facility] Comment on above: Order Comment: Speci men Type: BLOOD SPECIMENOrdering Facility: [facility] Address: [address] [place] [address] Result Comment: Cons istent with serological evidence of immunity to Hepatitis B Virus. Performed By: #### 2 2322-2, 59006-7, 5195-3 ####[facility] LABCLIA [id number] [place] [id number] [facility] [place] HBV surface Ag Ql (S)on Interpretation and review of laboratory results Normal [facility] HBV surface Ag Ser Qlon HBV surface Ag Ql (S) Negative Normal Negative [facility] Comment on above: Order Comment: Speci men Type: BLOOD SPECIMENOrdering Facility: [facility] Address: [address] [place] [address] Performed By: #### 2 2322-2, 45234-1, 5195-3 ####[facility] LABIA [id number] [address] HCV Ab Ql (S)on 03-17-2025 Interpretation and review of laboratory results Normal [facility] HCV Ab Ser Qlon 03-17-2025 HCV Ab Ql (S) Negative Normal Negative [facility] Comment on above: Order Comment: Speci men Type: BLOOD SPECIMENOrdering Facility: [facility] Address: [address] [place] [address] Result Comment: The result suggests no evidence of infection with Hepatitis C virus. Should recent infection be suspected, repeat testing may be considered 4-6 weeks after this draw. Performed By: #### 1 6128-1 ####[facility] LABIA [id number] [place] [address] [facility] [place] HEPATITIS B CORE ANTIBODY TO Karina 03-17-2025 HBV core Ab Ql (S) Negative Negative [facility] Comment on above: No evidence of curre nt or past infection with Hepatitis B virus. Should recent infection be suspected, repeat testing may be considered 3-4 weeks after this draw. HEPATITIS B SURFACE ANTIBODY on 03-17-2025 HBV surface Ab Ql (S) Positive [facility] Comment on above: Consistent with sero logical evidence of immunity to Hepatitis B Virus. HEPATITIS B SURFACE ANTIGENo n 03-17-2025 HBV surface Ag Ql (S) Negative Negative [facility] HEPATITIS C ANTIBODY IA WITH CONFIRMATIONon 03-17-2025 HCV Ab Ql (S) Negative Negative [facility] Comment on above: The result suggests no evidence of infection with Hepatitis C virus. Should recent infection be suspected, repeat testing may be considered 4-6 weeks after this draw. IMMUNOGLOBULIN Joseph 5 IgG [Mass/Vol] 1249 mg/dL 700 - 1600 mg/dL [facility] IMMUNOGLOBULIN Mon 5 IgM [Mass/Vol] 165 mg/dL 40 - 230 mg/dL [facility] IgG SerPl-mCncon 03-17-2025 IgG [Mass/Vol] 1249 mg/dL Normal 700-1600 [facility] Comment on above: Order Comment: Speci men Type: BLOOD SPECIMENOrdering Facility: [facility] Address: [address] [place] [address] Performed By: #### 2 465-3, 3352-9 ####[facility] LABCLIA [id number] [place] [address] [place] IgM SerPl-mCncon 03-17-2025 IgM [Mass/Vol] 165 mg/dL Normal 40-230 [facility] Comment on above: Order Comment: Rylee chauhan Type: BLOOD SPECIMENOrdering Facility: [facility] Address: [address] [place] [address] Performed By: #### 2 465-3, 5532-9 ####[facility] LABIA [id number] [place] [address] [place] No Panel Informationon 03-17 Interpretation and review of laboratory results Normal [facility] T3 SerPl-mCncon 03-17-2025 T3 [Mass/Vol] 93 ng/dL Normal 79-165 [facility] Comment on above: Order Comment: Evai gissel Type: BLOOD SPECIMENOrdering Facility: [facility] Address: [address] [place] [address] Performed By: #### 3 024-7, 3016-3, 3053-6 ####[facility] LABCLIA [id number] [address] [address] [place] T4 Free SerPl-mCncon 025 Free T4 [Mass/Vol] 1.0 ng/dL Normal 0.9-1.7 [facility] Comment on above: Order Comment: Speci men Type: BLOOD SPECIMENOrdering Facility: [facility] Address: [address] [place] [address] Performed By: #### 3 024-7, 3016-3, 305-6 ####[facility] LABIA [id number] [place] [address] [place] TSH SerPl-aCncon 03-17-2025 TSH Qn 1.280 m[IU]/L Normal 0.270-4.200 [facility] Comment on above: Order Comment: Speci men Type: BLOOD SPECIMENOrdering Facility: [facility] Address: [address] [place] [address] Result Comment: If t he patient is , TSH reference range varies by gestational period: First Trimester (weeks 9-12): 0.180-2.990 mIU/L Second Trimester: 0.110-3.980 mIU/L Third Trimester: 0.480-4.710 mIU/L Rich Patrick et al. A Practical Approach for the Verifications and Determination of Site- and Trimester-Specific Reference Intervals for Thyroid Function tests in . Thyroid, 2019:29:3:412-420. Vivek Null, et al. 2017 Guidelines of the [place] Thyroid Association for the Diagnosis and Management of Thyroid Disease during and the . Thyroid, 2017:27:3:315-389. Performed By: #### 3 024-7, 3016-3, 305-6 ####[facility] LABIA [id number] [address] [address] [place] VARICELLA ZOSTER IGGon 03-17 Interpretation and review of laboratory results Normal [facility] Varicella Zoster IgG, Qual Positive Positive [facility] Comment on above: The result suggests recent or past exposure to Varicella- Zoster virus or chickenpox vaccination or zoster vaccination. Positive result may also be seen due to presence of passively-transferred antibodies. Please correlate with patient's history. [facility] VARICELLA ZOSTER IGG, QUAL Positive Normal Positive [facility] Comment on above: Order Comment: Speci men Type: BLOOD SPECIMENOrdering Facility: [facility] Address: [address] [place] [address] Result Comment: The result suggests recent or past exposure to Varicella-Zoster virus or chickenpox vaccination or zoster vaccination. Positive result may also be seen due to presence of passively-transferred antibodies. Please correlate with patient's history. Performed By: #### V ZVG2, 1989-01 ####[facility] LABCLIA [id number] [place] [address] [place] VITAMIN D 25 HYDROXYon 03-17 25-hydroxyvitamin D3 [Mass/Vol] 41.6 ng/mL 31.0 - 80.0 ng/mL [facility] Christiano 03-14-2025 CNPN Telephone (SAMEER) -------- CAROL ANN MARTINEZ ([id number]) 1985 F Date Time Provider Department 03/14/25 TOR HERNANDEZ During your visit today, we recorded the following information about you: Lori Duarte 03/14/2025 12:42 PM Signed lvm for patient to call so we can het her scheduled for her start up dose of her infusion and a 3 month follow up Allergies As of Date: 03/14/2025 Noted Allergy Reaction GLUTEN 03/19/2019 14 - [...] Vomiting More constipated More constipated Date Reviewed: 03/11/2025 Reviewed by: Tor Hernandez 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 - M-BLAKE PLUS 27 mg iron- 1 mg Take 1 tablet by mouth once daily. - valACYclovir (VALTREX) 500 mg tablet Take 500 mg by mouth. - QUEtiapine (SEROQUEL) 25 mg tablet Take 1-2 tablets by mouth two times a day as needed (for insomnia). - predniSONE (DELTASONE) 50 mg Take 25 pills per day. Take with food no later than 2 pm. - predniSONE (DELTASONE) 20 mg tablet Take 60mg (3 tabs) x 4 days, take 40mg (2 tabs) x 4 days, take 20mg (1 tab) x 4 days. To be taken AFTER high dose oral steroids - glatiramer (COPAXONE) 40 mg/mL injection Inject 40 mg subcutaneously every Friday, Friday, and Friday. - ergocalciferol 50,000 unit capsule (VITAMIN D2, DRISDOL) TAKE 1 CAPSULE BY MOUTH ONCE EVERY WEEK - methylPREDNISolone (MEDROL DOSE-PACK) 4 mg Dose-Pack Day 1: 6 tablets Day 2: 5 tablets Day 3: 4 tablets Day 4: 3 tablets Day 5: 2 tablets Day 6: 1 tablet - mometasone (ELOCON) 0.1 % cream Apply to affected area once daily. - magnesium oxide (MAG-OX) 400 mg (241.3 [...] (FLONASE) 50 mcg/actuation nasal spray Use 1 Emmonak in each nostril once daily. Problem List As Of Date 03/14/2025 Noted Resolved Multiple sclerosis (HCC) [G35] 11/15/2019 [...] 07/17/2023 Cognitive communication deficit [R41.841] 07/22/2022 07/17/2023 Right hip pain [M25.551] 09/03/2024 Encounter Status:Closed by LORI DUARTE on 03/14/25 Normal [facility] XR CHEST 2V FRONTAL/LATon XR CHEST 2V FRONTAL/LAT * * *Final Report* * * DATE OF EXAM: Mar 12 2025 11:23AM LNX [id number] - XR CHEST 2V FRONTAL/LAT / PROCEDURE REASON: Abnormal pleural fluid * * * * Physician Interpretation * * * * EXAMINATION: CHEST RADIOGRAPH (2 VIEW FRONTAL and LATERAL) CLINICAL HISTORY: Abnormal pleural fluid MQ: [id number]_6 EXAM DATE/TIME: 03/12/2025 11:23 AM COMPARISON: None. Correlation is made to prior MRI examination of the thoracic spine dated 02/10/2025. RESULT: Lines, tubes, and devices: None. Lungs and pleura: No consolidation. No lung mass. No pleural effusion. No pneumothorax. Cardiomediastinal silhouette: Normal cardiomediastinal silhouette. Bones and soft tissues: Unremarkable. IMPRESSION: No acute radiographic abnormality. Rn Digestive: ANGEL Transcribe Date/Time: Mar 14 2025 7:48A Dictated by : NO NOLEN MD This examination was interpreted and the report reviewed and electronically signed by: NO NOLEN MD on Mar 14 2025 8:36AM EST [id number] Normal [facility] Alanine aminotransferase [En zymatic activity/volume] in Serum or PlasmaOrdered By: Tor Hernandez on 02-12-2025 ALT [Catalytic activity/Vol] Alanine aminotransferase [Enzymatic activity/volume] in Serum or Plasma 7-52 [facility] Albumin [Mass/volume] in Ser um or Plasma by Bromocresol green (BCG) dye binding methoOrdered By: Tor Hernandez on 02-12-2025 Albumin BCG dye [Mass/Vol] Albumin [Mass/volume] in Serum or Plasma by Bromocresol green (BCG) dye binding metho 3.5-5.7 [facility] Alkaline phosphatase [Enzyma tic activity/volume] in Serum or PlasmaOrdered By: Tor Hernandez on 02-12-2025 ALP [Catalytic activity/Vol] Alkaline phosphatase [Enzymatic activity/volume] in Serum or Plasma 34-104 [facility] Aspartate aminotransferase [ Enzymatic activity/volume] in Serum or PlasmaOrdered By: Tor Hernandez on 02-12-2025 AST [Catalytic activity/Vol] Aspartate aminotransferase [Enzymatic activity/volume] in Serum or Plasma Low 13-39 [facility] Bilirubin.total [Mass/volume ] in Serum or PlasmaOrdered By: Tor Hernandez on 02-12-2025 Bilirubin [Mass/Vol] Bilirubin.total [Mass/volume] in Serum or Plasma 0.3-1.0 [facility] Calcium [Mass/volume] in Ser um or PlasmaOrdered By: Tor Hernandez on 02-12-2025 Calcium [Mass/Vol] Calcium [Mass/volume ] in Serum or Plasma 8.6-10.3 [facility] Carbon dioxide, total [Moles /volume] in Serum or PlasmaOrdered By: Tor Hernandez on 02-12-2025 CO2 [Moles/Vol] Carbon dioxide, tota l [Moles/volume] in Serum or Plasma 21.0-31.0 [facility] Chloride [Moles/volume] in S dante or PlasmaOrdered By: Tor Hernandez on 02-12-2025 Chloride [Moles/Vol] Chloride [Moles/vol ume] in Serum or Plasma 98-107 [facility] [place] Comprehensive Metabolic Pane kartik 02-12-2025 Albumin [Mass/Vol] 3.9 g/dL Normal 3.5-5.7 [facility] Comment on above: Performed By: #### Q UANT TB, IGG, IGM, VZIGG, HEPACUTE #### [facility] , #### CMP, [id number] #### [address] Albumin/Globulin [Mass ratio] 1.6 {ratio} Normal [facility] Comment on above: Performed By: #### Q UANT TB, IGG, IGM, VZIGG, HEPACUTE #### [facility] , #### CMP, [id number] #### [address] ALP [Catalytic activity/Vol] 60 U/L Normal 34-104 [facility] Comment on above: Performed By: #### Q UANT TB, IGG, IGM, VZIGG, HEPACUTE #### [facility] , #### CMP, [id number] #### [address] ALT [Catalytic activity/Vol] 16 U/L Normal 7-52 [facility] Comment on above: Performed By: #### Q UANT TB, IGG, IGM, VZIGG, HEPACUTE #### [facility] , #### CMP, [id number] #### [address] Anion gap [Moles/Vol] 9.4 mmol/L Normal 6.0-15.0 [facility] Comment on above: Performed By: #### Q UANT TB, IGG, IGM, VZIGG, HEPACUTE #### [facility] , #### CMP, [id number] #### [address] AST [Catalytic activity/Vol] 10 U/L Low 13-39 [facility] Comment on above: Performed By: #### Q UANT TB, IGG, IGM, VZIGG, HEPACUTE #### [facility] , #### CMP, [id number] #### [address] Bilirubin [Mass/Vol] 0.7 mg/dL Normal 0.3-1.0 [facility] Comment on above: Performed By: #### Q UANT TB, IGG, IGM, VZIGG, HEPACUTE #### [facility] , #### CMP, [id number] #### [address] Calcium [Mass/Vol] 9.1 mg/dL Normal 8.6-10.3 [facility] Comment on above: Performed By: #### Q UANT TB, IGG, IGM, VZIGG, HEPACUTE #### [facility] , #### CMP, [id number] #### [address] Chloride [Moles/Vol] 103 mmol/L Normal 98-107 [facility] Comment on above: Performed By: #### Q UANT TB, IGG, IGM, VZIGG, HEPACUTE #### [facility] , #### CMP, [id number] #### [address] CO2 [Moles/Vol] 28.9 mmol/L Normal 21.0-31.0 [facility] Comment on above: Performed By: #### Q UANT TB, IGG, IGM, VZIGG, HEPACUTE #### [facility] , #### CMP, [id number] #### [address] Creatinine [Mass/Vol] 0.78 mg/dL Normal 0.60-1.20 [facility] Comment on above: Performed By: #### Q UANT TB, IGG, IGM, VZIGG, HEPACUTE #### [facility] , #### CMP, [id number] #### [place] [address] [place] GFR/1.73 sq M.predicted MDRD (S/P/Bld) [Vol rate/Area] mL/min/{1.73_m2} Normal [facility] Comment on above: Performed By: #### Q UANT TB, IGG, IGM, VZIGG, HEPACUTE #### [facility] , #### CMP, [id number] #### [address] Globulin (S) [Mass/Vol] 2.5 g/dL Normal [facility] Comment on above: Performed By: #### Q UANT TB, IGG, IGM, VZIGG, HEPACUTE #### [facility] , #### CMP, [id number] #### [address] Glucose [Mass/Vol] 79 mg/dL Normal 70-100 [facility] Comment on above: Result Comment: [place] Glucose Reference Range is dependent on time and content of last meal. Glucose of more than 200 mg/dL in a nonstressed, ambulatory subject supports the diagnosis of Diabetes Mellitus. ADA recommended reference range Performed By: #### Q UANT TB, IGG, IGM, VZIGG, HEPACUTE #### [facility] , #### CMP, [id number] #### [address] Potassium [Moles/Vol] 4.3 mmol/L Normal 3.5-5.1 [facility] Comment on above: Performed By: #### Q UANT TB, IGG, IGM, VZIGG, HEPACUTE #### [facility] , #### CMP, [id number] #### [address] Protein [Mass/Vol] 6.4 g/dL Normal 6.4-8.9 [facility] Comment on above: Performed By: #### Q UANT TB, IGG, IGM, VZIGG, HEPACUTE #### [facility] , #### CMP, [id number] #### [address] Sodium [Moles/Vol] 137 mmol/L Normal 136-145 [facility] Comment on above: Performed By: #### Q UANT TB, IGG, IGM, VZIGG, HEPACUTE #### [facility] , #### CMP, [id number] #### [facility] [address] [place] [address] Urea nitrogen [Mass/Vol] 24 mg/dL Normal 7-25 [facility] Comment on above: Performed By: #### Q UANT TB, IGG, IGM, VZIGG, HEPACUTE #### [facility] , #### CMP, [id number] #### [address] Creatinine [Mass/volume] in Serum or PlasmaOrdered By: Tor Hernandez on 02-12-2025 Creatinine [Mass/Vol] Creatinine [Mass/v olume] in Serum or Plasma 0.60-1.20 [facility] Globulin Calc (S) [Mass/Vol] Ordered By: Tor Hernandez on 02-12-2025 Globulin (S) [Mass/Vol] Serum globulin measurement by calculation (mass/volume) [facility] Glucose [Mass/volume] in Ser um or PlasmaOrdered By: Tor Hernandez on 02-12-2025 Glucose [Mass/Vol] Glucose [Mass/volume ] in Serum or Plasma 70-100 [facility] [place] Comment on above: ADA recommended refe rence rangeRandom Glucose Reference Range is dependent on time and content of last meal. Glucose of more than 200 mg/dL in a nonstressed, ambulatory subject supports the diagnosis of Diabetes Mellitus. Hepatitis Acute Panelon HBsAg Screen Negative Normal Negative [facility] Comment on above: Performed By: #### Q UANT TB, IGG, IGM, VZIGG, HEPACUTE #### [facility] , #### CMP, [id number] #### [address] Hepatitis A Antibody IgM Negative Normal Negative [facility] Comment on above: Result Comment: A ne gative anti-HAV IgM result suggests no recent or current HAV infection. Performed By: #### Q UANT TB, IGG, IGM, VZIGG, HEPACUTE #### [facility] , #### CMP, [id number] #### [address] Hepatitis B Core Antibody IgM Negative Normal Negative [facility] Comment on above: Performed By: #### Q UANT TB, IGG, IGM, VZIGG, HEPACUTE #### [facility] , #### CMP, [id number] #### [address] Hepatitis C Virus Antibody Non-Reactive Normal Non Reactive [facility] Comment on above: Performed By: #### Q UANT TB, IGG, IGM, VZIGG, HEPACUTE #### [facility] , #### CMP, [id number] #### [address] Interpretation Hepatitis C Comment Normal . [facility] Comment on above: Result Comment: Not infected with HCV unless early or acute infection is suspected (which may be delayed in an immunocompromised individual), or other evidence exists to indicate HCV infection. Performed at: - [facility] [id number] [employer] Employee: Rafael Moseley PhD, Phone: [phone] PERFORMED BY: [place] [address] PATHOLOGIST INFORMATION SYSTEMS PROFESSOR SIMONA MORTON M.D. Performed By: #### Q UANT TB, IGG, IGM, VZIGG, HEPACUTE #### [facility] , #### CMP, [id number] #### [address] [place] [address] [place] Immunoglobulin Joseph Immunoglobulin G 1075 mg/dL Normal 586-1602 [facility] Comment on above: Performed By: #### Q UANT TB, IGG, IGM, VZIGG, HEPACUTE #### [facility] , #### CMP, [id number] #### [facility] [address] [place] [address] [place] Immunoglobulin M, Serumon Immunoglobulin M, Serum 149 mg/dL Normal 26-217 [facility] Comment on above: Result Comment: Perf ormed at: - [facility] [address] [id number] [employer] Employee: Rafael Moseley PhD, Phone: [phone] Performed By: #### Q UANT TB, IGG, IGM, VZIGG, HEPACUTE #### [facility] , #### CMP, [id number] #### [facility] [address] [place] [address] No Panel InformationOrdered By: Tor Hernandez on 02-12-2025 Estimated GFR (CKD-EPI) > 60.0 mL/Min [facility] [place] [facility] Creatinine Clearance (Chem N/A [facility] Potassium [Moles/volume] in Serum or PlasmaOrdered By: Tor Hernandez on 02-12-2025 Potassium [Moles/Vol] Potassium [Moles/v olume] in Serum or Plasma 3.5-5.1 [facility] Protein [Mass/volume] in Ser um or PlasmaOrdered By: Tor Hernandez on 02-12-2025 Protein [Mass/Vol] Protein [Mass/volume ] in Serum or Plasma 6.4-8.9 [facility] [place] QuantiFERON TB Goldon 2024 QFTB Criteria Comment Normal . [facility] Comment on above: Result Comment: [place] tiFERON-TB Gold Plus is a qualitative indirect test for M tuberculosis infection (including disease) and is intended for use in conjunction with risk assessment, radiography, and other medical and diagnostic evaluations. The QuantiFERON-TB Gold Plus result is determined by subtracting the Nil value from either TB antigen (Ag) value. The Mitogen tube serves as a control for the test. Performed By: #### Q UANT TB, IGG, IGM, VZIGG, HEPACUTE #### [facility] , #### CMP, [id number] #### [address] Quant TB Ag Value 0.03 [IU]/mL Normal . [facility] Comment on above: Performed By: #### Q UANT TB, IGG, IGM, VZIGG, HEPACUTE #### [facility] , #### CMP, [id number] #### [address] Quant TB Gold Plus Negative Normal Negative [facility] Comment on above: Result Comment: No r esponse to M tuberculosis antigens detected. Infection with M tuberculosis is unlikely, but high risk individuals should be considered for additional testing (ATS/IDSA/CDC Clinical Practice Guidelines, 2017). The reference range is an Antigen minus Nil result of <0.35 IU/mL. The specimen received for QuantiFERON testing was incubated by the ordering institution. Specific procedures outlined in our Directory of Services and in the package insert for the QuantiFERON Gold (In Tube) test must be followed to enable for proper stimulation of cells for the production of interferon gamma. Chemiluminescence immunoassay methodology Performed at: [address] [id number] [employer] Employee: Rafael Moseley PhD, Phone: [phone] PERFORMED BY: [place] [address] PATHOLOGIST INFORMATION SYSTEMS PROFESSOR SIMONA MORTON M.D. Performed By: #### Q UANT TB, IGG, IGM, VZIGG, HEPACUTE #### [facility] , #### CMP, [id number] #### [address] Quant TB2 Ag Value 0.03 [IU]/mL Normal . [facility] Comment on above: Performed By: #### Q UANT TB, IGG, IGM, VZIGG, HEPACUTE #### [facility] , #### CMP, [id number] #### [facility] [address] Quantiferon Nil Value 0.02 [IU]/mL Normal . T [facility] Comment on above: Performed By: #### Q UANT TB, IGG, IGM, VZIGG, HEPACUTE #### [facility] , #### CMP, [id number] #### [facility] [address] Quantiferon TB Mitogen >10.00 Normal . Th e [facility] Comment on above: Performed By: #### Q UANT TB, IGG, IGM, VZIGG, HEPACUTE #### [facility] , #### CMP, [id number] #### [facility] [address] Serum or plasma albumin/glob ulin mass ratioOrdered By: Tor Hernandez on 02-12-2025 Albumin/Globulin [Mass ratio] Serum or plasma albumin/globulin mass ratio [facility] [place] Serum or plasma anion gap de terminationOrdered By: Tor Hernandez on 02-12-2025 Anion gap [Moles/Vol] Serum or plasma an ion gap determination 6.0-15.0 [facility] Sodium [Moles/volume] in Ser um or PlasmaOrdered By: Tor Hernandez on 02-12-2025 Sodium [Moles/Vol] Sodium [Moles/volume ] in Serum or Plasma 136-145 [facility] [place] Urea nitrogen [Mass/volume] in Serum or PlasmaOrdered By: Tor Hernandez on 02-12-2025 Urea nitrogen [Mass/Vol] Urea nitrogen [Mass/volume] in Serum or Plasma 7-25 [facility] [place] Varicella IgG Antibodyon Varicella IgG Antibody Reactive Normal Non Reactive [facility] Comment on above: Result Comment: Pl ease note reference interval change A Reactive result is considered evidence of immunity to VZV. Reactive indicates that VZV IgG was detected consistent with previous infection and/or vaccination. A Non Reactive result indicates that VZV IgG was not detected suggesting that immunity has not been acquired. Performed at: - [facility] [id number] [employer] Employee: Rafael Moseley PhD, Phone: [phone] PERFORMED BY: [place] [address] PATHOLOGIST INFORMATION SYSTEMS PROFESSOR SIMONA MORTON M.D. Performed By: #### Q UANT TB, IGG, IGM, VZIGG, HEPACUTE #### [facility] , #### CMP, [id number] #### [place] [id number] [facility] Vitamin D 25 Hydroxy Totalon 02-12-2025 Vitamin D 25 Hydroxy Total 32.5 ng/mL Normal 30-100 [facility] Comment on above: Result Comment: JOÃO MIN D STATUS 25(OH)VITAMIN D RANGE (ng/mL) Deficient <20 Insufficient 20 to <30 Sufficient 30 to 100 Reference: Ambrosio MF,Reuben NC, Bandar MACKEY, et al. Evaluation,treatment, and prevention of vitamin D deficiency; an Endocrine Society clinical practice guideline. JCEM. 2010; 96(7):1911-30. PERFORMED BY: [place] [address] PATHOLOGIST INFORMATION SYSTEMS PROFESSOR SIMONA MORTON M.D. Performed By: #### Q UANT TB, IGG, IGM, VZIGG, HEPACUTE #### [facility] , #### CMP, [id number] #### [facility] [address] [place], [place] [id number] [facility] Vitamin D+Metabolites [Mass/ volume] in Serum or PlasmaOrdered By: Tor Hernandez on 02-12-2025 Vitamin D+Metabolites [Mass/Vol] Vitamin D+Metabolites [Mass/volume] in Serum or Plasma 30-100 [facility] [place] Comment on above: VITAMIN D STATUS 25( [place])VITAMIN D RANGE (ng/mL) Deficient <20 Insufficient 20 to <30Sufficient 30 to 100Reference: Ambrosio MF,Reuben NC, Bandar MACKEY, et al. Evaluation,treatment, and prevention of vitamin D deficiency; an Endocrine Society clinical practice guideline. JCEM. 2010; 96(7):1911-30. Christiano 02-11-2025 TREEN Telephone (NEMSMLuís) -------- CAROL ANN MARTINEZ F ([id number]) 1985 F Date Time Provider Department 02/11/25 TOR HERNANDEZ During your visit today, we recorded the following information about you: Doroteo Holley RN 02/11/2025 1:49 PM Addendum Provider requested we get the remaining lab results for this patient because we only received the CBC. I called [facility] at [phone]. They stated they also received a CBC order. I re faxed everything to them and they will get the rest re-drawn. I also notified the patient. [facility]: Patient has additional follow up questions: Are we still moving forward with Ocrevus? She is still nursing, is Ocrevus okay? Always fatigued, exhausted, tired - anything besides B vitamins that could help? Update on Nutritional Shakes after speaking to configuration developer? Anything for memory, very foggy? Normal priority message forwarded to [facility] provider team for review related to visit follow up question. Tor Hernandez APRN.[facility] 02/11/2025 2:18 PM Signed - We are still moving forward with ocrevus - we have insurance authorization, just need to confirm safety with the lab work - Ocrevus is OK to receive while breast feeding but I want her to connect with her electric range servicer as her child may require consideration with vaccine timing - We can consider fatigue medications such as modafinil but at last discussion we were wanting to connect with psychiatry as mood was likely biggest contributor, in addition to recent delivery. Limited information on modafinil and breast feeding so would also want patient to connect with electric range servicer. In the mean time agree with continuing vitamin D, B12, and iron - I connected with nutrition and we re-sent the prescription in for the shakes on Friday - Unfortunately, no medications for brain fog but hopeful with improved mood and fatigue/sleep we could see some improvement. Moving forward would recommend reconnecting with cognitive therapy (order previously placed) Tor Hernandez APRN.LIQUEFACTION PLANT OPERATOR February 11, 2025 2:18 PM Doroteo Holley RN 02/11/2025 3:16 PM Signed Collaborated with the patients provider, recommendations received and [facility] Allergies As of Date: 02/11/2025 Noted Allergy Reaction GLUTEN 03/19/2019 14 - [...] Vomiting More constipated More constipated Date Reviewed: 02/10/2025 Reviewed by: Baron Hernandez, bar tacker - Fully Assessed Reason for Visit: Lab results needed [Other] Prescriptions as of 03/02/2025 - amoxicillin (AMOXIL) 875 mg tablet Take 1 tablet by mouth two times a day for 7 days. - M- PLUS 27 mg iron- 1 mg Take 1 tablet by mouth once daily. - valACYclovir (VALTREX) 500 mg tablet Take 500 mg by mouth. - QUEtiapine (SEROQUEL) 25 mg tablet Take 1-2 tablets by mouth two times a day as needed (for insomnia). - predniSONE (DELTASONE) 50 mg Take 25 pills per day. Take with food no later than 2 pm. - famotidine (PEPCID) 20 mg tablet Take 1 tablet by mouth two times a day. While on steroids - predniSONE (DELTASONE) 20 mg tablet Take 60mg (3 tabs) x 4 days, take 40mg (2 tabs) x 4 days, take 20mg (1 tab) x 4 days. To be taken AFTER high dose oral steroids - glatiramer (COPAXONE) 40 mg/mL injection Inject 40 mg subcutaneously every Friday, Friday, and Friday. - ergocalciferol 50,000 unit capsule (VITAMIN D2, DRISDOL) TAKE 1 CAPSULE BY MOUTH ONCE EVERY WEEK - methylPREDNISolone (MEDROL DOSE-PACK) 4 mg Dose-Pack Day 1: 6 tablets Day 2: 5 tablets Day 3: 4 tablets Day 4: 3 tablets Day 5: 2 tablets Day 6: 1 tablet - mometasone (ELOCON) 0.1 % cream Apply to affected area once daily. - magnesium oxide (MAG-OX) 400 mg (241.3 [...] affected area once daily. Apply qd - (more content not included)... Normal [facility] MRI BRAIN WO/W IVCONon 02-10 MRI BRAIN WO/W IVCON * * *Final Report* * * DATE OF EXAM: Feb 10 2025 3:57PM CD 0295 - MRI BRAIN WO/W IVCON / [...] Improvement: None. New Enhancing Lesions: None T2 [place] of Disease: Mild. Parenchymal Volume Loss: None. [...] nor the epidural space. Cord T2 Plaque [place]: Moderate. New T2 Lesions: None Interval Cord [...] number above, please feel free to contact [facility] at [phone]. [id number] Normal [facility] MRI CERVICAL SPINE WO/W IVCO Non 02-10-2025 MRI CERVICAL SPINE WO/W IVCON * * *Final Report* * * DATE OF EXAM: Feb 10 2025 3:58PM CDM 0298 - MRI CERVICAL SPINE WO/W IVCON [...] Improvement: None. New Enhancing Lesions: None T2 [place] of Disease: Mild. Parenchymal Volume Loss: None. [...] nor the epidural space. Cord T2 Plaque [place]: Moderate. New T2 Lesions: None Interval Cord [...] number above, please feel free to contact [facility] at [phone]. [id number] Normal [facility] MRI THORACIC SPINE WO/W IVCO Non 02-10-2025 MRI THORACIC SPINE WO/W IVCON * * *Final Report* * * DATE OF EXAM: Feb 10 2025 3:58PM [facility] 0326 - MRI THORACIC SPINE WO/W IVCON [...] are seen. The neural foramina are patent. IMPRESSION: 1. New trace bilateral pleural fluid. [...] number above, please feel free to contact [facility] at [phone]. [id number] Normal [facility] 02[facility]20[facility] ([facility] -------- CAROL ANN MARTINEZ ([id number]) 1985 F Date Time Provider Department 02/08/25 [facility] NIQ During your visit today, we recorded the following information about you: Zbigniew Stewart 02/08/2025 8:42 AM Signed 02/08/25. LVM and call center # for Pt to reschedule MRIs any day but Sundays. Brain MRI should be scheduled ANDER. CS and TS MRIs can be scheduled at a later date if needed. WS Allergies As of Date: 02/08/2025 Noted Allergy Reaction GLUTEN 03/19/2019 14 - [...] Vomiting More constipated More constipated Date Reviewed: 02/03/2025 Reviewed by: Tor Hernandez APRN.LIQUEFACTION PLANT OPERATOR - Fully Assessed Reason for Visit: Appointment [186] Cmt: 02/08/25. LVM and call center # for Pt to reschedule MRIs any day but Sundays. Brain MRI should be scheduled [place]ER. CS and TS MRIs can be scheduled at a later date if needed. WS Prescriptions as of 02/08/2025 - predniSONE (DELTASONE) 50 mg Take 25 pills per day. Take with food no later than 2 pm. - famotidine (PEPCID) 20 mg tablet Take 1 tablet by mouth two times a day. While on steroids - predniSONE (DELTASONE) 20 mg tablet Take 60mg (3 tabs) x 4 days, take 40mg (2 tabs) x 4 days, take 20mg (1 tab) x 4 days. To be taken AFTER high dose oral steroids - glatiramer (COPAXONE) 40 mg/mL injection Inject 40 mg subcutaneously every Friday, Friday, and Friday. - ergocalciferol 50,000 unit capsule (VITAMIN D2, DRISDOL) TAKE 1 CAPSULE BY MOUTH ONCE EVERY WEEK - methylPREDNISolone (MEDROL DOSE-PACK) 4 mg Dose-Pack Day 1: 6 tablets Day 2: 5 tablets Day 3: 4 tablets Day 4: 3 tablets Day 5: 2 tablets Day 6: 1 tablet - mometasone (ELOCON) 0.1 % cream Apply to affected area once daily. - magnesium oxide (MAG-OX) 400 mg (241.3 [...] (FLONASE) 50 mcg/actuation nasal spray Use 1 [place] in each nostril once daily. Problem List As Of Date 02/08/2025 Noted Resolved Multiple sclerosis (HCC) [G35] 11/15/2019 [...] 07/17/2023 Cognitive communication deficit [R41.841] 07/22/2022 07/17/2023 Right hip pain [M25.551] 09/03/2024 Encounter Status:Closed by ZBIGNIEW STEWART on 02/08/25 Normal [facility] Basophils Auto (Bld) [#/Vol] Ordered By: Tor Hernandez on 02-03-2025 Basophils (Bld) [#/Vol] Automated basophil count 0.0-0.2 [facility] Basophils/100 WBC Auto (Bld) Ordered By: Tor Hernandez on 02-03-2025 Basophils/100 WBC (Bld) Automated basophil % . [facility] [place] Complete Blood Count Auto Di ffon 02-03-2025 Basophils (Bld) [#/Vol] 0.0 10*3/uL Normal 0.0-0.2 [facility] Comment on above: Result Comment: PERF ORMED BY: [place] [address] PATHOLOGIST INFORMATION SYSTEMS PROFESSOR SIMONA MORTON M.D. Performed By: #### C BC #### [facility] [address] [place] [address] Basophils/100 WBC (Bld) 0.6 % Normal . [facility] Comment on above: Performed By: #### C BC #### [facility] [address] Eosinophils (Bld) [#/Vol] 0.1 10*3/uL Normal 0.0-0.45 [facility] Comment on above: Performed By: #### C BC #### [place] [address] [place] Eosinophils/100 WBC (Bld) 1.5 % Normal . [facility] Comment on above: Performed By: #### C BC #### [address] Erythrocyte distribution width (RBC) [Ratio] 13.8 % Normal 11.9-15.3 [facility] Comment on above: Performed By: #### C BC #### [address] Hematocrit (Bld) [Volume fraction] 40.4 % Normal 34.0-46.4 [facility] Comment on above: Performed By: #### C BC #### [address] Hemoglobin (Bld) [Mass/Vol] 13.2 g/dL Normal 11.8-15.4 [facility] Comment on above: Performed By: #### C BC #### [place] [address] [place] Lymphocytes (Bld) [#/Vol] 1.9 10*3/uL Normal 1.00-4.8 [facility] Comment on above: Performed By: #### C BC #### [address] Lymphocytes/100 WBC (Bld) 29.3 % Normal . [facility] Comment on above: Performed By: #### C BC #### [address] MCH (RBC) [Entitic mass] 26.1 pg Normal 24.7-34.3 [facility] Comment on above: Performed By: #### C BC #### [address] MCV (RBC) [Entitic vol] 80.2 fL Normal 80-100 [facility] Comment on above: Performed By: #### C BC #### [address] Mean Corpuscular HGB Conc 32.6 g/dL Normal 32.0-35.0 [facility] Comment on above: Performed By: #### C BC #### [address] Monocytes (Bld) [#/Vol] 0.7 10*3/uL Normal 0.0-0.8 [facility] [facility] Comment on above: Performed By: #### C BC #### [address] Monocytes/100 WBC (Bld) 10.9 % Normal . [facility] Comment on above: Performed By: #### C BC #### [address] Neutrophils (Bld) [#/Vol] 3.8 10*3/uL Normal 1.8-7.7 [facility] Comment on above: Performed By: #### C BC #### [address] Neutrophils/100 WBC (Bld) 57.7 % Normal . [facility] Comment on above: Performed By: #### C BC #### [address] NRBC% 0.1 /100{WBC} Normal 0-0.5 [facility] Comment on above: Performed By: #### C BC #### [address] Platelet mean volume (Bld) [Entitic vol] 10.5 fL Normal 6.3-10.7 [facility] Comment on above: Performed By: #### C BC #### [place] [address] [place] Platelets (Bld) [#/Vol] 197 10*3/uL Normal 150-450 [facility] Comment on above: Performed By: #### C BC #### [address] RBC (Bld) [#/Vol] 5.04 10*6/uL High 3.60-5.00 [facility] Comment on above: Performed By: #### C BC #### [facility] [address] WBC (Bld) [#/Vol] 6.7 10*3/uL Normal 3.8-11.6 [facility] Comment on above: Performed By: #### C BC #### [facility] [address] Eosinophils Auto (Bld) [#/Vo l]Ordered By: Tor Hernandez on 02-03-2025 Eosinophils (Bld) [#/Vol] Automated eosinophil count 0.0-0.45 [facility] Eosinophils/100 WBC Auto (Bl d)Ordered By: Tor Hernandez on 02-03-2025 Eosinophils/100 WBC (Bld) Automated eosinophil % . [facility] Erythrocyte distribution wid th Auto (RBC) [Ratio]Ordered By: Tor Hernandez on 02-03-2025 Erythrocyte distribution width (RBC) [Ratio] Erythrocyte distribution width [Ratio] by Automated count 11.9-15.3 [facility] Hematocrit Auto (Bld) [Volum e fraction]Ordered By: Tor Hernandez on 02-03-2025 Hematocrit (Bld) [Volume fraction] Hematocrit [Volume Fraction] of Blood by Automated count 34.0-46.4 [facility] Hemoglobin [Mass/volume] in BloodOrdered By: Tor Hernandez on 02-03-2025 Hemoglobin (Bld) [Mass/Vol] Hemoglobin [Mass/volume] in Blood 11.8-15.4 [facility] Leukocytes [#/volume] correc che for nucleated erythrocytes in Blood by Automated counOrdered By: Tor Hernandez on 02-03-2025 WBC corrected for nucl RBC Auto (Bld) [#/Vol] Leukocytes [#/volume] corrected for nucleated erythrocytes in Blood by Automated coun 3.8-11.6 [facility] Lymphocytes Auto (Bld) [#/Vo l]Ordered By: Tor Hernandez on 02-03-2025 Lymphocytes (Bld) [#/Vol] Lymphocytes [#/volume] in Blood by Automated count 1.00-4.8 [facility] Lymphocytes/100 WBC Auto (Bl d)Ordered By: Tor Hernandez on 02-03-2025 Lymphocytes/100 WBC (Bld) Lymphocytes/100 leukocytes in Blood by Automated count . [facility] MCH Auto (RBC) [Entitic mass ]Ordered By: Tor Hernandez on 02-03-2025 MCH (RBC) [Entitic mass] MCH [Entitic mass] by Automated count 24.7-34.3 [facility] MCHC Auto (RBC) [Mass/Vol]Or dered By: Tor Hernandez on 02-03-2025 MCHC (RBC) [Mass/Vol] MCHC [Mass/volume] by Automated count 32.0-35.0 [facility] MCV Auto (RBC) [Entitic vol] Ordered By: Tor Hernandez on 02-03-2025 MCV (RBC) [Entitic vol] MCV [Entitic volume] by Automated count 80-100 [facility] Monocytes Auto (Bld) [#/Vol] Ordered By: Tor Hernandez on 02-03-2025 Monocytes (Bld) [#/Vol] Automated blood monocyte count 0.0-0.8 [facility] Monocytes/100 WBC Auto (Bld) Ordered By: Tor Hernandez on 02-03-2025 Monocytes/100 WBC (Bld) Automated monocyte % . [facility] Neutrophils Auto (Bld) [#/Vo l]Ordered By: Tor Hernandez on 02-03-2025 Neutrophils (Bld) [#/Vol] Neutrophils [#/volume] in Blood by Automated count 1.8-7.7 [facility] Neutrophils/100 WBC Auto (Bl d)Ordered By: Tor Hernandez on 02-03-2025 Neutrophils/100 WBC (Bld) Automated neutrophil % . [facility] Nucleated erythrocytes [Pres ence] in Blood by Automated countOrdered By: Tor Hernandez on 02-03-2025 Nucleated RBC Auto Ql (Bld) Nucleated erythrocytes [Presence] in Blood by Automated count 0-0.5 [facility] Platelet mean volume Auto (B ld) [Entitic vol]Ordered By: Tor Hernandez on 02-03-2025 Platelet mean volume (Bld) [Entitic vol] Platelet mean volume [Entitic volume] in Blood by Automated count 6.3-10.7 [facility] Platelets Auto (Bld) [#/Vol] Ordered By: Tor Hernandez on 02-03-2025 Platelets (Bld) [#/Vol] Platelets [#/volume] in Blood by Automated count 150-450 [facility] RBC Auto (Bld) [#/Vol]Ordere d By: Tor Hernandez on 02-03-2025 RBC (Bld) [#/Vol] Erythrocytes [#/volu me] in Blood by Automated count High 3.60-5.00 [facility] WBC Auto (Bld) [#/Vol]Ordere d By: Tor Hernandez on 02-03-2025 WBC (Bld) [#/Vol] Leukocytes [#/volume ] in Blood by Automated count 3.8-11.6 [facility] CNPNon 02-02-2025 CNPN Telephone (NEMSMN) -------- CAROL ANN MARTINEZ ([id number]) 1985 F Date Time Provider Department 02/02/25 TOR HERNANDEZ During your visit today, we recorded the following information about you: Kenyatta Beltrán 02/02/2025 1:31 PM Signed [place] Call Name of caller : Carol Ann Martinez Relationship to patient: Self Return call phone number : [phone] Reason for call : Symptoms : Brief description of symptoms : Patient calling to say having numbness in her hands and feet and having a hard time to walk and having memory issues, feels like that is getting worse as well. She said she was driving over the weekend and had to puller through because her feet were numb and had a hard time stopping the car. She had a baby boy 3 months ago so not sure if that is related. Please call to discuss further. When did symptoms start : This past weekend started, getting worse now. Zulay Palomares RN 02/02/2025 3:54 PM Signed Spoke to patient Patient says last Friday she noticed some worsening symptoms Experiencing numbness in both feet and hands Numbness in feet has gotten so bad that sometimes she has to put her car in park at stop lights because she cannot tell if she is pressing on the pedals Also having issues with her memory Says these are not new symptoms but definitely seem worse then they have in the past No recent or current infections, illness, or UTIs Delivered a baby boy 3 months ago and has a 4 year old at home She is a single parent Has some increased stress related to of her son and changes in her daily routine Also decreased sleep related to new baby in the home Last appt was a virtual visit 06/09/25 Advised patient she is overdue for a follow up Patient in [place] and unable to drive to [place] Agreeable to a virtual visit with Iona Hernandez 02/03 at 9:30am Scheduling paged Allergies As of Date: 02/02/2025 Noted Allergy Reaction GLUTEN 03/19/2019 14 - [...] by: Art Swenson, OD - Fully Assessed Reason for Visit: Symptoms [3640] Cmt: Numbness Prescriptions as of 02/02/2025 - glatiramer (COPAXONE) 40 mg/mL injection Inject 40 mg subcutaneously every Friday, Friday, and Friday. - ergocalciferol 50,000 unit capsule (VITAMIN D2, DRISDOL) TAKE 1 CAPSULE BY MOUTH ONCE EVERY WEEK - methylPREDNISolone (MEDROL DOSE-PACK) 4 mg Dose-Pack Day 1: 6 tablets Day 2: 5 tablets Day 3: 4 tablets Day 4: 3 tablets Day 5: 2 tablets Day 6: 1 tablet - mometasone (ELOCON) 0.1 % cream Apply to affected area once daily. - magnesium oxide (MAG-OX) 400 mg (241.3 [...] (FLONASE) 50 mcg/actuation nasal spray Use 1 Emmonak in each nostril once daily. Problem List As Of Date 02/02/2025 Noted Resolved Multiple sclerosis (HCC) [G35] 11/15/2019 [...] Constipation [K59.00] 10/06/2019 07/17/2023 Costochondritis, acute [M94.0] (more content not included)... Normal [facility] - Microbiology an d Antimicrobial susceptibilityOrdered By: Neeru Scott on 12-10-2024 SARS-CoV-2 (COVID-19) RNA DEIRDRE+probe Ql (Unsp spec) Negative [facility] No Panel InformationOrdered By: Neeru Scott on 12-10-2024 FLU A Negative [facility] FLU B Negative [facility] Interpretation and review of laboratory results Normal [facility] S. pyogenes DNA DEIRDRE+probe No m (Unsp spec)on 12-10-2024 RESULT Negative Negative [facility] ALL CBC WITH AUTO DIFFon BASOPHILS ABSOLUTE AUTO 0 [facility] Basophils/100 WBC (Bld) 0.4 % 0.2 - 2.0 % [facility] Eosinophils/100 WBC (Bld) 0.8 % Low 0.9 - 7.0 % [facility] Erythrocyte distribution width (RBC) [Ratio] 14.2 % 11.0 - 15.0 % [facility] Hematocrit (Bld) [Volume fraction] 33.3 % Low 36.0 - 48.0 % [facility] Hemoglobin (Bld) [Mass/Vol] 10.8 g/dL Low 12.0 - 16.0 g/dL [facility] IMMATURE GRANULOCYTES ABS AUTO 0.11 High [facility] Immature granulocytes/100 WBC (Bld) 1 % High 0.0 - 0.5 % [facility] Interpretation and review of laboratory results Abnormal [facility] LYMPHOCYTES ABSOLUTE AUTO 1.8 [facility] Lymphocytes/100 WBC (Bld) 16.4 % Low 20.5 - 60.0 % [facility] MCH (RBC) [Entitic mass] 27.1 pg 26.7 - 34.0 pg [facility] MCHC (RBC) [Mass/Vol] 32.4 g/dL 29.9 - 35.2 g/dL [facility] MCV (RBC) [Entitic vol] 83.7 fL 81.0 - 99.0 fL [facility] MONOCYTES ABSOLUTE AUTO 0.9 High [facility] Monocytes/100 WBC (Bld) 8.3 % 1.7 - 12.0 % [facility] NEUTROPHILS ABSOLUTE AUTO 7.9 High [facility] Neutrophils/100 WBC (Bld) 73.1 % 43.0 - 75.0 % [facility] Platelet mean volume (Bld) [Entitic vol] 12.9 fL 9.5 - 13.5 fL [facility] TBH EO # 0.1 [facility] PLT 151 [facility] RBC 3.98 Low [facility] WBC 10.9 [facility] CBC WITH PLATELET NO DI FFERENTIALon 10-14-2024 Erythrocyte distribution width (RBC) [Ratio] 13.9 % 11.0 - 15.0 % [facility] Hematocrit (Bld) [Volume fraction] 38.2 % 36.0 - 48.0 % [facility] Hemoglobin (Bld) [Mass/Vol] 12.4 g/dL 12.0 - 16.0 g/dL [facility] MCH (RBC) [Entitic mass] 27 pg 26.7 - 34.0 pg [facility] MCHC (RBC) [Mass/Vol] 32.5 g/dL 29.9 - 35.2 g/dL [facility] MCV (RBC) [Entitic vol] 83 fL 81.0 - 99.0 fL [facility] Platelet mean volume (Bld) [Entitic vol] 13.2 fL 9.5 - 13.5 fL [facility] PLT [facility] 4.6 [facility] WBC 10 [facility] CNPNon 10-13-2024 [place] Telephone (NUTRSO) -------- CAROL ANN MARTINEZ ([id number]) 1985 F Date Time Provider Department 10/13/24 ESTELLA DUTTON NUTRJUAN During your visit today, we recorded the following information about you: Estella Dutton, DAVID 10/13/2024 11:30 AM Signed Ensure prescription faxed to [facility] on 10/13. Order will need to process and go through insurance for coverage before order is delivered. Allergies As of Date: 10/13/2024 Noted Allergy Reaction GLUTEN 03/19/2019 14 - [...] by: Art Swenson, OD - Fully Assessed Reason for Visit: Patient Update [1234] Prescriptions as of 10/13/2024 - methylPREDNISolone (MEDROL DOSE-PACK) 4 mg Dose-Pack [...] (FLONASE) 50 mcg/actuation nasal spray Use 1 Emmonak in each nostril once daily. Problem List As Of Date 10/13/2024 Noted Resolved Multiple sclerosis (HCC) [G35] 11/15/2019 [...] 07/17/2023 Cognitive communication deficit [R41.841] 07/22/2022 07/17/2023 Right hip pain [M25.551] 09/03/2024 Encounter Status:Closed by ESTELLA DUTTON on 10/13/24 Normal [facility] No Panel Informationon 10-12 Interpreted by: Radha Batres Indication ======== BPP [...] Problem with Growth History ====== General History Umwtpr384 cm Height (ft)5 ft Height (in)6 in Previous Outcomes Gravida2 Para1 Children born living ?37w1 Pregnancies delivered at term (T)1 Living children (L)1 Other:Vaginal Delivery Maternal Assessment Jucmtr343 cm Height (ft)5 ft Height (in)6 in [place]75 kg Weight (lb)131 lb Weight gain0 kg Weight gain (lb)0 lb BMI21.14 kg/m Physical Exam Initial weight (lb)131 lb ========= Tony . Number of fetuses: 1 Dating ====== GA by prior [id number] w + 6 d ELLIOTT by prior [...] Problem with Growth History ====== General History Crdpwr331 cm Height (ft)5 ft Height (in)6 in Previous Outcomes Gravida2 Para1 Children born living ?37w1 Pregnancies delivered at term (T)1 Living children (L)1 Other:Vaginal Delivery Maternal Assessment Tirhil057 cm Height (ft)5 ft Height (in)6 in Qshrmf57 kg Weight (lb)131 lb Weight gain0 kg Weight gain (lb)0 lb BMI21.14 kg/m Physical Exam Initial weight (lb)131 lb ========= Tony . Number of fetuses: 1 Dating ====== GA by prior [id number] w + 6 d ELLIOTT by prior [...] General Evaluation ====== (more content not included)... [facility] Work Phone: Radiology Study observation (narrative) [facility] Work Phone: No Panel InformationOrdered By: Radha Batres on 10-12-2024 [facility] Work Phone: US BIOPHYSICAL PROFILE WO NON STRESS TESTINGon 10-12-2024 US BIOPHYSICAL PROFILE WO NON STRESS TESTING Interpreted by: Radha Batres Indication ======== BPP [...] no critical findings today to indicate delivery. M visit prior [...] no critical findings today to indicate delivery. [facility] visit prior to US today. Scheduled for delivery locally in one week (10/20). Thank you for allowing us to participate in your patient's care. Attending Attestation: I personally reviewed the image(s)/study and fellow interpretation. I agree with the findings as stated. Follow-up ======== No further follow up requested. General Evaluation Cardiac activity present. FHR 149 bpm. movements: visualiz (more content not included)... [facility] US OB LIMITED 1+ FETUSESon 1 12-13-2023 US OB LIMITED 1+ FETUSES Interpreted by: Radha Batres Indication ======== BPP [...] no critical findings today to indicate delivery. [facility] visit prior to US today. Scheduled for delivery locally in one week (10/20). Thank you for allowing us to participate in your patient's care. Attending Attestation: I personally reviewed the image(s)/study and fellow interpretation. I agree with the findings as stated. Follow-up ======== No further follow up requested. General Evaluation Cardiac activity present. FHR 149 bpm. movements: visualiz (more content not included)... [facility] US UMBILICAL ARTERY DOPPLERo n 10-12-2024 US UMBILICAL ARTERY DOPPLER Interpreted by: Radha Batres Indication ======== BPP [...] no critical findings today to indicate delivery. [facility] visit prior to US today. Scheduled [...] no critical findings today to indicate delivery. [facility] visit prior to US today. Scheduled for delivery locally in one week (10/20). Thank you for allowing us to participate in your patient's care. Attending Attestation: I personally reviewed the image(s)/study and fellow interpretation. I agree with the findings as stated. Follow-up ======== No further follow up requested. General Evaluation Cardiac activity present. FHR 149 bpm. movements: visualiz (more content not included)... Normal [facility] Urinalysis macro (dipstick) panel (U)on 10-12-2024 Bilirubin, UA Negative Negative - 4(70) +++ mg/dL [facility] Blood, UA Negative Negative - 50 Delbert/mcL [facility] Clarity, UA Clear [facility] Color, UA Yellow [facility] Glucose, UA Negative Negative - 1999(110) ++++ mg/dL [facility] Interpretation and review of laboratory results Normal [facility] Ketones, UA Negative Negative - 160(16) ++++ mg/dL [facility] Leukocytes, UA Negative Negative - 500+++ Baltazar/mcL [facility] Nitrite, UA Negative Negative - Positive [facility] pH, UA 6.5 5 - 9 [facility] Protein, UA Negative Negative - 1999(20) ++++ mg/dL [facility] Spec Grav, UA 1.025 1 - 1.03 [facility] Urobilinogen, UA 1.0 0.2 - 12 mg/dL [facility] CNTHERAPYon 10-11-2024 CNTHERAPY OT/PT/Speech Visit (RENE) -------- CAROL ANN MARTINEZ ([id number]) 1985 F Date Time Provider Department 10/11/24 1:00 PM ESTRELLA SORTO Date Time Provider Department [place] 10/11/2024 1:00 PM [id number] SORTO Reason for Visit: PT Discharge [752] [...] (FLONASE) 50 mcg/actuation nasal spray Use 1 Emmonak in each nostril once daily. [employer] Supervisor: Therapy (PT/OT/Speech/Resp) ID: [id number] 10/11/2024 1:31 PM Author: ESTRELLA SORTO Signed by ESTRELLA SORTO PT, DPT on 10/11/2024 at 1:31 PM Document text: Program_ID:[id number] Access Code: [email or web address] URL: [email or web address]/ Date: 10-11-2024 Prepared By: Estrella Sorto Program [...] - 10 reps - Hamstring Set with Gabonese Ball - 1 x daily - 7 x weekly - 2 sets - 10 reps - Supine Bridge - 1 x daily - 7 x weekly - 2 sets - 10 reps Normal [facility] THERAPY NTon 10-11-2024 THERAPY NT HNO ID: [id number] Author: ESTRELLA SORTO, PT, DPT Service: ? Author Type: Physical Therapist Type: Therapy (PT/OT/Speech/Resp) Filed: 10/11/2024 13:31 Note Text: Program_ID:[id number] Access Code: [email or web address] URL: [email or web address]/ Date: 10-11-2024 Prepared By: Estrella Sorto Program [...] - 10 reps - Hamstring Set with Gabonese Ball - 1 x daily - 7 x weekly - 2 sets - 10 reps - Supine Bridge - 1 x daily - 7 x weekly - 2 sets - 10 reps Normal [facility] No Panel Informationon 10-05 Interpreted by: Mel Roberts Indication ======== Suspected [...] BPP and Dopplers. Delivery is recommended at [id number]. Please see note from today for details [...] EFW (oz) 13 oz EFW by: Hadlock (JBY-OP-PA-FL) Extended Manager Construction 5.8 mm Head / Face / Neck [...] Problem with Growth. History ====== General History Sicggc475 cm Height (ft)5 ft Height (in)6 in Previous Outcomes Gravida2 Para1 Children born living ?37w1 Pregnancies delivered at term (T)1 Living children (L)1 Other:Vaginal Delivery Maternal Assessment Gtbknj502 cm Height (ft)5 ft Height (in)6 in Ziehif32 kg Weight (lb)131 lb Weight gain0 kg Weight gain (lb)0 lb BMI21.14 kg/m Physical Exam Initial weight (lb)131 lb ========= Tony . Number of fetuses: 1 Dating ====== GA by prior [id number] w + 6 d ELLIOTT by prior [...] BPP and Dopplers. Delivery is recommended at [id number]. Please see note from today for details [...] Biometry Standard BPD89.7 mm36w 2d 49% Hadlock AMZ875.7 mm 64% INTERGROWTH-21st HC326.4 mm37w 0d 27% Hadlock AC304.3 mm34w 3d 6% Hadlock Femur70.2 mm36w 0d 26% Hadlock HC / AC1.07 EFW2,643 g35w 2d 19% Hadlock EFW (lb)5 lb EFW (oz)13 oz EFW by:Hadlock (RSM-EI-DJ-FL) Extended Vp5.8 mm Head / Face / Neck Cephalic index0.78 16% Nicolaides Extremities / Bony Struc FL / BPD0.78 FL / HC0.22 FL / AC0.23 Other Structures AIA572 bpm Anatomy Cranium:Normal Lateral ventricles:Normal Midline falx:Normal [...] Problem with Growth. History ====== General History Mbttxf729 cm Height (ft)5 ft Height (in)6 in Previous Outcomes Gravida2 Para1 Children born living ?37w1 Pregnancies delivered at term (T)1 Living children (L)1 Other:Vaginal Delivery Maternal Assessment Zwubfx650 cm Height (ft)5 ft Height (in)6 in Bjxpsq87 kg Weight (lb)131 lb Weight gain0 kg Weight gain (lb)0 lb BMI21.14 kg/m Physical Exam Initial weight (lb)131 lb ========= Tony . Number of fetuses: 1 Dating ====== GA by prior nhopyhwkhz87 w + 6 d ELLIOTT by prior assessment:10/27/2024 Ultrasound examination on:10/05/2024 GA by U/S based upon:AC, BPD, Femur, HC GA by U/S36 w + 0 d ELLIOTT by U/S:11/02/2024 Assigned:based on stated ELLIOTT, selected on 06/14/2024 Assigned GA (more content not included)... [facility] Work Phone: [facility] Work Phone: Radiology Study observation (narrative) [facility] Work Phone: US BIOPHYSICAL PROFILE WO NON [...] BPP and Dopplers. Delivery is recommended at [id number]-13b4u. Please see note from today for details [...] EFW (oz) 13 oz EFW by: Hadlock (CLB-YE-MU-FL) Extended Manager Construction 5.8 mm Head / Face / Neck [...] 36 w + (more content not included)... [facility] US OB FOLLOW UP TRANSABDOMIN AL APPROACHon 10-05-2024 OB FOLLOW UP TRANSABDOMINAL APPROACH Interpreted by: [...] BPP and Dopplers. Delivery is recommended at [id number]. Please see note from today for details [...] EFW (oz) 13 oz EFW by: Hadlock (BTT-NU-CM-FL) Extended Manager Construction 5.8 mm Head / Face / Neck [...] 36 w + (more content not included)... [facility] US UMBILICAL ARTERY DOPPLERo n [...] BPP and Dopplers. Delivery is recommended at [id number]-10h8p. Please see note from today for details [...] EFW (oz) 13 oz EFW by: Hadlock (ALQ-AC-CD-FL) Extended Manager Construction 5.8 mm Head / Face / Neck [...] w + (more content not included)... Normal [facility] Urinalysis macro (dipstick) panel (U)on 10-04-2024 Bilirubin, UA Negative Negative - 4(70) +++ mg/dL [facility] Blood, UA Positive Negative - 50 Delbert/mcL [facility] Comment on above: trace-intact Clarity, UA Clear [facility] Color, UA Yellow [facility] Glucose, UA Negative Negative - 1999(110) ++++ mg/dL [facility] Interpretation and review of laboratory results Abnormal [facility] Ketones, UA Negative Negative - 160(16) ++++ mg/dL [facility] Leukocytes, UA Positive Negative - 500+++ Baltazar/mcL [facility] Comment on above: small Nitrite, UA Negative Negative - Positive [facility] pH, UA 6 5 - 9 [facility] Protein, UA Trace Negative - 1999(20) ++++ mg/dL [facility] Spec Grav, UA 1.03 1 - 1.03 [facility] Urobilinogen, UA 0.2 0.2 - 12 mg/dL [facility] Urinalysis macro (dipstick) panel (U)on 09-27-2024 Bilirubin, UA Negative Negative - 4(70) +++ mg/dL [facility] Blood, UA Negative Negative - 50 Delbert/mcL [facility] Clarity, UA Clear [facility] Color, UA Yellow [facility] Glucose, UA Negative Negative - 1999(110) ++++ mg/dL [facility] Interpretation and review of laboratory results Normal [facility] Ketones, UA Negative Negative - 160(16) ++++ mg/dL [facility] Leukocytes, UA Negative Negative - 500+++ Baltazar/mcL [facility] Nitrite, UA Negative Negative - Positive [facility] pH, UA 5.5 5 - 9 [facility] Protein, UA Negative Negative - 1999(20) ++++ mg/dL [facility] Spec Grav, UA 1.02 1 - 1.03 [facility] Urobilinogen, UA 1.0 0.2 - 12 mg/dL [facility] CNTHERAPYon 09-21-2024 CNTHERAPY OT/PT/Speech Visit (KEPTRM) -------- CAROL ANN MARTINEZ ([id number]) 1985 F Date Time Provider Department 09/21/24 9:45 AM ESTRELLA SORTO Date Time Provider Department Center 09/21/2024 9:45 AM [id number] SORTO Reason for Visit: Physical Therapy [503] [...] (FLONASE) 50 mcg/actuation nasal spray Use 1 [place] in each nostril once daily. 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 Date: 09-21-2024 Prepared By: Estrella Sorto Program [...] - 2 sets - 10 reps Normal [facility] THERAPY NTon 09-21-2024 THERAPY NT HNO ID: [id number] Author: ESTRELLA SORTO, PT, DPT Service: ? Author Type: Physical Therapist Type: Therapy (PT/OT/Speech/Resp) Filed: 09/21/2024 10:16 Note Text: Program_ID:[id number] Access Code: [email or web address] URL: [email or web address] Date: 09-21-2024 Prepared By: Estrella Sorto Program [...] - 2 sets - 10 reps Normal [facility] Urinalysis macro (dipstick) panel (U)on 09-21-2024 Bilirubin, UA Negative Negative - 4(70) +++ mg/dL [facility] Blood, UA Negative Negative - 50 Delbert/mcL [facility] Clarity, UA Clear [facility] Color, UA Yellow [facility] Glucose, UA Negative Negative - 2000(110) ++++ mg/dL [facility] Interpretation and review of laboratory results Abnormal [facility] Ketones, UA Negative Negative - 160(16) ++++ mg/dL [facility] Leukocytes, UA Trace Negative - 500+++ Baltazar/mcL [facility] Nitrite, UA Negative Negative - Positive [facility] pH, UA 7 5 - 9 [facility] Protein, UA Negative Negative - 2000(20) ++++ mg/dL [facility] Spec Grav, UA 1.02 1 - 1.03 [facility] Urobilinogen, UA 0.2 0.2 - 12 mg/dL [facility] US OB FOLLOW UP TRANSABDOMIN AL APPROACHon [...] EFW (oz) 0 oz EFW by: Hadlock (SUS-MV-JH-FL) Extended Manager Construction 1.6 mm Head / Face / Neck [...] Suboptimal view: limited by late gestational age [facility] Urinalysis macro (dipstick) panel (U)on 09-07-2024 Bilirubin, UA Negative Negative - 4(70) +++ mg/dL [facility] Blood, UA Negative Negative - 50 Delbert/mcL [facility] Clarity, UA Clear [facility] Color, UA Yellow [facility] Glucose, UA Negative Negative - 1999(110) ++++ mg/dL [facility] Interpretation and review of laboratory results Abnormal [facility] Ketones, UA Negative Negative - 160(16) ++++ mg/dL [facility] Leukocytes, UA Trace Negative - 500+++ Baltazar/mcL [facility] Nitrite, UA Negative Negative - Positive [facility] pH, UA 7 5 - 9 [facility] Protein, UA Negative Negative - 1999(20) ++++ mg/dL [facility] Spec Grav, UA 1.02 1 - 1.03 [facility] Urobilinogen, UA 0.2 0.2 - 12 mg/dL [facility] [id number] 09-03-2024 [id number] HNO ID: [id number] Author: ESTRELLA SORTO PT, DPT Service: ? Author Type: Physical Therapist Type: [id number] Filed: 09/03/2024 11:25 Note Text: [facility] Therapy Physical Therapy Plan of Care Certification Patient Name: Carol Ann Martinez : 1985 [facility] #: [id number] Date: 09/03/2024 To: Janice Lane MD From Therapist: Estrella Sorto PT DPLibby RE: Patient Certification/ Recertification Your review, approval [...] Goals for Episode of Care: established 09/03/24 [place] in home exercise program. Patient will decrease [...] Planned: 4 Planned Treatment Interventions: Therapeutic exercise (69428), Neuromuscular re-education (38771), Manual therapy (27636), Therapeutic activities (93711), Self-long term management (80410), Gait Training (44535), Patient/Family/Caregiver Education PLAN FOR NEXT VISIT: Continue with hip strength as tolerated, introduce PPT. Patient demonstrates good understanding of plan of care and treatment. The above goals and plan of care were discussed and agreed upon by patient/family. For further details regarding this patient refer to the Physical Therapy electronically documented visit dated 09/03/2024. Provider Attestation I have reviewed the treatment plan for Sampsondayana Beto Martinez, [facility]# [id number] for the period of 09/03/24 -- 11/02/24, established on 09/03/2024. Signature certifies the need for therapy services. Normal [facility] CNTHERAPYon 09-03-2024 CNTHERAPY OT/PT/Speech Visit (LOPTRM) -------- CAROL ANN MARTINEZ ([id number]) 1985 F Date Time Provider Department 09/03/24 8:45 AM ESTRELLA SORTO Date Time Provider Department [place] 09/03/2024 8:45 AM [id number]-NWGBDORAESTRELLA SORTO Reason for Visit: PT Eval [747] [...] (FLONASE) 50 mcg/actuation nasal spray Use 1 [place] in each nostril once daily. 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 Date: 09-03-2024 Prepared By: Estrella Sorto Program Notes Exercises - Seated Hip Adduction Isometrics with Ball - 1-3 x daily - 7 x weekly - 2-3 sets - 10 reps - Seated Hip Abduction with Resistance - 1-3 x daily - 7 x weekly - 2-3 sets - 10 reps Normal [facility] NTon 09-03-2024 THERAPY NT HNO ID: [id number] Author: ESTRELLA SORTO, PT, DPT Service: ? Author Type: Physical Therapist Type: Therapy (PT/OT/Speech/Resp) Filed: 09/03/2024 09:22 Note Text: Program_ID:[id number] Access Code: [email or web address] URL: [email or web address] Date: 09-03-2024 Prepared By: Estrella Sorto Program Notes Exercises - Seated Hip Adduction Isometrics with Ball - 1-3 x daily - 7 x weekly - 2-3 sets - 10 reps - Seated Hip Abduction with Resistance - 1-3 x daily - 7 x weekly - 2-3 sets - 10 reps Normal [facility] Urinalysis macro (dipstick) panel (U)on 08-24-2024 Bilirubin, UA Negative Negative - 4(70) +++ mg/dL [facility] Blood, UA Negative Negative - 50 Delbert/mcL [facility] Clarity, UA Clear [facility] Color, UA Yellow [facility] Glucose, UA Negative Negative - 1999(110) ++++ mg/dL [facility] Interpretation and review of laboratory results Normal [facility] Ketones, UA Negative Negative - 160(16) ++++ mg/dL [facility] Leukocytes, UA Negative Negative - 500+++ Baltazar/mcL [facility] Nitrite, UA Negative Negative - Positive [facility] pH, UA 6.5 5 - 9 [facility] Protein, UA Negative Negative - 1999(20) ++++ mg/dL [facility] Spec Grav, UA 1.025 1 - 1.03 [facility] Urobilinogen, UA 0.2 0.2 - 12 mg/dL [facility] No Panel Informationon 08-17 [...] EFW (oz) 4 oz EFW by: Hadlock (OEK-CY-NH-FL) Extended [employer] 3.4 mm Head / Face / Neck [...] Disorder, Cervical Shortening. History ====== General History Dufnsr309 cm Height (ft)5 ft Height (in)6 in Previous Outcomes Gravida2 Para1 Children born living ?37w1 Pregnancies delivered at term (T)1 Living children (L)1 Other:Vaginal Delivery Maternal Assessment Slojqu793 cm Height (ft)5 ft Height (in)6 in Xcwvzw50 kg Weight (lb)131 lb Weight gain0 kg Weight gain (lb)0 lb BMI21.14 kg/m Physical Exam Initial weight (lb)131 lb ========= Tony . Number of fetuses: 1 Dating ====== GA by prior [id number] w + 6 d ELLIOTT by prior [...] (lb)3 lb EFW (oz)4 oz EFW by:Hadlock (SWR-FL-JR-FL) Extended Vp3.4 mm Head / Face / Neck Cephalic index0.77 24% Nicolaides Extremities / Bony Struc FL / BPD0.75 FL / HC0.20 FL / AC0.22 Other Structures EAW923 bpm Anatomy Cranium:Normal Lateral ventricles:Normal Midline falx:Normal [...] Disorder, Cervical Shortening. History ====== General History Dbuanx852 cm Height (ft)5 ft Height (in)6 in Previous Outcomes Gravida2 Para1 Children born living ?37w1 Pregnancies delivered at term (T)1 Living children (L)1 Other:Vaginal Delivery Maternal Assessment Snlxrq993 cm Height (ft)5 ft Height (in)6 in Jszwwu11 kg Weight (lb)131 lb Weight gain0 kg Weight gain (lb)0 lb BMI21.14 kg/m Physical Exam Initial weight (lb)131 lb ========= Tony . Number of fetuses: 1 Dating ====== GA by prior [id number] w + 6 d ELLIOTT by prior [...] participate in the (more content not included)... [facility] Work Phone: Radiology Study observation (narrative) [facility] Work Phone: No Panel InformationOrdered By: Marina Ordoñez on 08-17-2024 [facility] Work Phone: POCT UA Automated manually r esultedon 08-17-2024 Appearance (U) Clear Clear [facility] Work Phone: Glucose Test strip (U) [Mass/Vol] Negative NEGATIVE mg/dl [facility] Work Phone: Hemoglobin Ql (U) Negative NEGATIVE [facility] Work Phone: Interpretation and review of laboratory results Normal [facility] Work Phone: Leukocyte esterase Test strip Ql (U) Negative NEGATIVE [facility] Work Phone: Nitrite Ql (U) Negative NEGATIVE [facility] Work Phone: pH (U) 7.0 [pH] No Reference Range Established [facility] Work Phone: POC Bilirubin, Urine Negative NEGATIVE [facility] Work Phone: POC Color, Urine Yellow Straw, Yellow, Light-Yellow [facility] Work Phone: POC Ketones, Urine Negative NEGATIVE mg/dl [facility] Work Phone: POC Protein, Urine Negative NEGATIVE, 30 (1+) mg/dl [facility] Work Phone: POC Specific [place], Urine 1.025 1.005 - 1.035 [facility] Work Phone: POC Urobilinogen, Urine 0.2 0.2, 1.0 EU/DL [facility] Work Phone: [facility] Work Phone: US BIOPHYSICAL PROFILE WO NON [...] EFW (oz) 4 oz EFW by: Hadlock (PEC-DN-KG-FL) Extended Manager Construction 3.4 mm Head / Face / Neck [...] care of yo (more content not included)... [facility] US OB FOLLOW UP TRANSABDOMIN [...] GA 29 w + 6 d Assigned ELLOITT: 10/27/2024 Growth Overview Exam date GA BPD [...] EFW (oz) 4 oz EFW by: Hadlock (CZS-HC-BU-FL) Extended Manager Construction 3.4 mm Head / Face / Neck [...] of yo (more content not included)... Normal [facility] Urinalysis macro (dipstick) panel (U)on 08-10-2024 Bilirubin, UA Negative Negative - 4(70) +++ mg/dL [facility] Blood, UA Negative Negative - 50 Delbert/mcL [facility] Clarity, UA Clear [facility] Color, UA Yellow [facility] Glucose, UA Negative Negative - 1999(110) ++++ mg/dL [facility] Interpretation and review of laboratory results Normal [facility] Ketones, UA Negative Negative - 160(16) ++++ mg/dL [facility] Leukocytes, UA Negative Negative - 500+++ Baltazar/mcL [facility] Nitrite, UA Negative Negative - Positive [facility] pH, UA 5.5 5 - 9 [facility] Protein, UA Negative Negative - 1999(20) ++++ mg/dL [facility] Spec Grav, UA 1.015 1 - 1.03 [facility] Urobilinogen, UA 1.0 0.2 - 12 mg/dL [facility] Urinalysis macro (dipstick) panel (U)on 07-27-2024 Bilirubin, UA Negative Negative - 4(70) +++ mg/dL [facility] Blood, UA Negative Negative - 50 Delbert/mcL [facility] Clarity, UA Clear [facility] Color, UA Yellow [facility] Glucose, UA Negative Negative - 1999(110) ++++ mg/dL [facility] Interpretation and review of laboratory results Abnormal [facility] Ketones, UA Negative Negative - 160(16) ++++ mg/dL [facility] Leukocytes, UA Trace Negative - 500+++ Baltazar/mcL [facility] Nitrite, UA Negative Negative - Positive [facility] pH, UA 7.0 5 - 9 [facility] Protein, UA Negative Negative - 1999(20) ++++ mg/dL [facility] Spec Grav, UA 1.020 1 - 1.03 [facility] Urobilinogen, UA 0.2 0.2 - 12 mg/dL [facility] - Microbiology an d Antimicrobial susceptibilityon 07-19-2024 SARS-CoV-2 (COVID-19) RNA DEIRDRE+probe Ql (Unsp spec) Negative [facility] No Panel Informationon 07-19 FLU A Negative [facility] FLU B Negative [facility] Interpretation and review of laboratory results Normal [facility] GLUCOSE 1 HOURon 07-17-2024 Glucose [Mass/Vol] 90 mg/dL NINF - 13 0 mg/dL [facility] Urinalysis macro (dipstick) panel (U)on 07-13-2024 Bilirubin, UA Negative Negative - 4(70) +++ mg/dL [facility] Blood, UA Negative Negative - 50 Delbert/mcL [facility] Clarity, UA Clear [facility] Color, UA Yellow [facility] Glucose, UA Negative Negative - 2000(110) ++++ mg/dL [facility] Interpretation and review of laboratory results Normal [facility] Ketones, UA Negative Negative - 160(16) ++++ mg/dL [facility] Leukocytes, UA Negative Negative - 500+++ Baltazar/mcL [facility] Nitrite, UA Negative Negative - Positive [facility] pH, UA 6.5 5 - 9 [facility] Protein, UA Negative Negative - 1999(20) ++++ mg/dL [facility] Spec Grav, UA 5.500 1 - 1.03 [facility] Urobilinogen, UA 1.0 0.2 - 12 mg/dL [facility] No Panel Informationon 07-02 Interpreted by: Radha Batres Indication ======== Cervical [...] evaluation -There is no funneling Patient denies contractions/VB/LOF/pres sure. PTL precautions reviewed and patient advised to [...] evaluation -There is no funneling Patient denies contractions/VB/LOF/pres sure. 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 [facility] Radha Batres M D - 07/02/2024 Interpreted by: Radha Batres Indication ======== Cervical Length Assessment, Cervical Shortening, AMA Multigravida, Maternal Thyroid Disorder. History ====== General History Cwkylk110 cm Height (ft)5 ft Height (in)6 in Previous Outcomes Gravida2 Para1 Children born living ?37w1 Pregnancies delivered at term (T)1 Living children (L)1 Other:Vaginal Delivery Maternal Assessment Gyuzgw370 cm Height (ft)5 ft Height (in)6 in Xaswzl76 kg Weight (lb)131 lb Weight gain0 kg Weight gain (lb)0 lb BMI21.14 kg/m Physical Exam Initial weight (lb)131 lb ========= Tony . Number of fetuses: 1 Dating ====== GA by prior julfehyxqk10 w + 2 d ELLIOTT by prior assessment:10/27/2024 Assigned:based on stated ELLIOTT, selected on 06/14/2024 Assigned GA23 w + 2 d Assigned ELLIOTT:10/27/2024 Growth Overview Exam date [...] evaluation -There is no funneling Patient denies contractions/VB/LOF/pres sure. PTL precautions reviewed and patient advised to [...] normal amount Maternal Structures Uterus / Cervix Uterus:Visualized Cervix:Visualized Cervix details:Short Approach:Transvaginal Cervical hnalde42.9 mm Ovaries / Tubes / Adnexa Rt ovary:Visualized Rt ovary details:Normal Lt ovary:Not visualized Method ====== Transabdominal and transvaginal ultrasound examination. View: Good Indication ======== Cervical Length Assessment, Cervical Shortening, AMA Multigravida, Maternal Thyroid Disorder. History ====== General History Hebkyu540 cm Height (ft)5 ft Height (in)6 in Previous Outcomes Gravida2 Para1 Children born living ?37w1 Pregnancies delivered at term (T)1 Living children (L)1 Other:Vaginal Delivery Maternal Assessment Cshlxv435 cm Height (ft)5 ft Height (in)6 in Leuknd76 kg Weight (lb)131 lb Weight gain0 kg Weight gain (lb)0 lb BMI21.14 kg/m Physical Exam Initial weight (lb)131 lb ========= Tony . Number of fetuses: 1 Dating ====== GA by prior ilyafrekpe06 w + 2 d ELLIOTT by prior assessment:10/27/2024 Assigned:based on stated ELLIOTT, selected on 06/14/2024 Assigned GA23 w + 2 d Assigned ELLIOTT:10/27/2024 Growth Overview Exam date [...] evaluation -There is no funneling Patient denies contractions/VB/LOF/pres sure. PTL precautions reviewed and patient advised to [...] fluid: Amount of AF: normal amount Maternal (more content not included)... [facility] Work Phone: Radiology Study observation (narrative) [facility] Work Phone: No Panel InformationOrdered By: Radha Batres on 07-02-2024 [facility] Work Phone: US OB LIMITED 1+ FETUSESon 0 07-02-2024 US [...] evaluation -There is no funneling Patient denies contractions/VB/LOF/pres sure. PTL precautions reviewed and patient advised to [...] evaluation -There is no funneling Patient denies contractions/VB/LOF/pres sure. PTL precautions reviewed and patient advised to [...] Cervix Uterus: Visualiz (more content not included)... [facility] OB TRANSVAGINALon 024 OB TRANSVAGINAL Interpreted by: Radha Batres Indication ======== Cervical [...] evaluation -There is no funneling Patient denies contractions/VB/LOF/pres sure. PTL precautions reviewed and patient advised to [...] evaluation -There is no funneling Patient denies contractions/VB/LOF/pres sure. PTL precautions reviewed and patient advised to [...] Cervix Uterus: Visualiz (more content not included)... [facility] US OB DETAIL ANATOMYon 06-14-2024 US OB DETAIL ANATOMY Interpreted by: Janice Escobar [...] and chest anatomy, abdominal organ specific anatomy, number/length/architectu re of limbs and detailed evaluation of the [...] EFW (oz) 14 oz EFW by: Hadlock (QYH-WS-XM-FL) Extended Manager Construction 5.9 mm CM 3.2 mm 4% Nicolaides [...] Normal LVOT view: Normal 3-vessel view: Normal 1-ipbfzv-zcdxfek view: Normal Heart / Thorax Situs: situs [...] Lt neha (more content not included)... Normal [facility] US OB TRANSVAGINALon 024 OB TRANSVAGINAL Interpreted by: [...] and chest anatomy, abdominal organ specific anatomy, number/length/architectu re of limbs and detailed evaluation of the [...] EFW (oz) 14 oz EFW by: Hadlock (OLR-ON-EA-FL) Extended Manager Construction 5.9 mm CM 3.2 mm 4% Nicolaides [...] Normal LVOT view: Normal 3-vessel view: Normal 6-fnbhpm-sjumdeq view: Normal Heart / Thorax Situs: situs [...] Lt neha (more content not included)... Normal [facility] XR Cervical spine AP and Lat eral and obliqueon 03-08-2024 IMPRESSION: No acute osseous abnormality. Preserved cervical disc spaces and neural foramina. Rn Digestive: [facility] Transcribe Date/Time: Mar 08 2024 4:48P Dictated by : VIKTORIYA WALTER MD This examination was interpreted and the report reviewed and electronically signed by: VIKTORIYA WALTER MD on Mar 08 2024 4:50PM [facility] DIVISION OF RADIOLOGY * * *Final Report* [...] to the patient. DIVISION OF RADIOLOGY Provider, [facility] [place] - 03/08/2024 * * *Final Report* * [...] Preserved cervical disc spaces and neural foramina. Rn Digestive: [facility] Transcribe Date/Time: Mar 08 2024 4:48P Dictated by : VIKTORIYA WALTER MD This examination was interpreted and the report reviewed and electronically signed by: VIKTORIYA WALTER MD on Mar 08 2024 4:50PM [facility] XR Lumbar spine 3 Viewson IMPRESSION: Unremarkable radiographic appearance of the lumbar spine. Rn Digestive: [facility] Transcribe Date/Time: Mar 08 2024 4:47P Dictated by : VIKTORIYA WALTER MD This examination was interpreted and the report reviewed and electronically signed by: VIKTORIYA WALTER MD on Mar 08 2024 4:48PM [facility] DIVISION OF RADIOLOGY * * *Final Report* [...] Preserved disc spaces. DIVISION OF RADIOLOGY Provider, [facility] Pastora Min - 03/08/2024 * * *Final [...] Unremarkable radiographic appearance of the lumbar spine. Rn Digestive: [facility] Transcribe Date/Time: Mar 08 2024 4:47P Dictated by : VIKTORIYA WALTER MD This examination was interpreted and the report reviewed and electronically signed by: VIKTORIYA WALTER MD on Mar 08 2024 4:48PM [facility] XR Lumbar spine 3 ViewsOrder ed By: [facility] Provider on 03-08-2024 [facility] ESR Westergren method (Bld) [Velocity]on 03-05-2024 ESR (Bld) [Velocity] 5 mm/h [facility] Interpretation and review of laboratory results Normal [facility] CBC W Auto Differential pane l (Bld)on 03-04-2024 Basophils (Bld) [#/Vol] 0.04 10*3/uL NINF [facility] Basophils/100 WBC (Bld) 0.5 % [facility] Differential cell count method Nom (Bld) Auto [facility] Eosinophils (Bld) [#/Vol] [facility] Eosinophils/100 WBC (Bld) 0.3 % [facility] Erythrocyte distribution width (RBC) [Ratio] 15.2 % High 11.5 - 15.0 % [facility] Hematocrit (Bld) [Volume fraction] 40.1 % 36.0 - 46.0 % [facility] Hemoglobin (Bld) [Mass/Vol] 12.4 g/dL 11.5 - 15.5 g/dL [facility] Immature granulocytes (Bld) [#/Vol] [facility] Immature granulocytes/100 WBC (Bld) 0.3 % [facility] Interpretation and review of laboratory results Abnormal [facility] Lymphocytes (Bld) [#/Vol] 1.62 10*3/uL [facility] Lymphocytes/100 WBC (Bld) 21.7 % [facility] MCH (RBC) [Entitic mass] 24.1 pg Low 26.0 - 34.0 pg [facility] MCHC (RBC) [Mass/Vol] 30.9 g/dL 30.5 - 36.0 g/dL [facility] MCV (RBC) [Entitic vol] 77.9 fL Low 80.0 - 100.0 fL [facility] Monocytes (Bld) [#/Vol] 0.69 10*3/uL [facility] Monocytes/100 WBC (Bld) 9.2 % [facility] Neutrophils (Bld) [#/Vol] 5.08 10*3/uL [facility] Neutrophils/100 WBC (Bld) 68.0 % [facility] Nucleated RBC (Bld) [#/Vol] [facility] Nucleated RBC/100 WBC (Bld) [Ratio] 0.0 % /100 WBC [facility] Platelet mean volume (Bld) [Entitic vol] [facility] Comment on above: Unable to Report. Platelets (Bld) [#/Vol] 185 10*3/uL [facility] Comment on above: Results checked and verified.No clot detected. RBC (Bld) [#/Vol] 5.15 10*6/uL 3.90 - 5.2 0 m/uL [facility] WBC (Bld) [#/Vol] 7.47 10*3/uL [facility] This is an appended report. These results have been appended to a previously verified report. [facility] No Panel Informationon 03-04 Radiology Study observation (narrative) [facility] Activated partial thrombopla stin time (aPTT) in platelet poor plasma by coagulation aOrdered By: Clarke Hu on 02-24-2024 aPTT Coag (PPP) [Time] 33.7 s 25.1-36.5 [facility] Comment on above: A hematocrit value g reater than 55% may lead to inaccurate results in coagulation testing. Patients having hematocrit values >55% require a special collection tube for coagulation studies. Please contact the laboratory at [phone] for redraw instructions. Basophils Auto (Bld) [#/Vol] Ordered By: Clarke Hu on 02-24-2024 Basophils (Bld) [#/Vol] 0.0 10*3/uL 0.0-0.2 [facility] Basophils/100 WBC Auto (Bld) Ordered By: Clarke Hu on 02-24-2024 Basophils/100 WBC (Bld) 0.5 % . [facility] Choriogonadotropin.beta subu nit [Units/volume] in Serum or PlasmaOrdered By: Clarke Hu on 02-24-2024 HCG.beta subunit Qn 791.11 m[IU]/mL [facility] Comment on above: Approximate Approxim ate hCG Gestational Age Range (mIU/ml) (weeks)0.2-1 5-50 1-2 50-500 2-3 100-5,000 3-4 500-10,000 4-5 1,000-50,000 5-6 10,000-100,000 6-8 15,000-200,000 8-12 10,000-100,000 Eosinophils Auto (Bld) [#/Vo l]Ordered By: Clarke Hu on 02-24-2024 Eosinophils (Bld) [#/Vol] 0.0 10*3/uL 0.0-0.45 [facility] Eosinophils/100 WBC Auto (Bl d)Ordered By: Clarke Hu on 02-24-2024 Eosinophils/100 WBC (Bld) 0.2 % . [facility] Erythrocyte distribution wid th Auto (RBC) [Ratio]Ordered By: Clarke Hu on 02-24-2024 Erythrocyte distribution width (RBC) [Ratio] 15.2 % 11.9-15.3 [facility] Glucose mean value [Mass/vol ume] in Blood Estimated from glycated hemoglobinOrdered By: Clarke Hu on 02-24-2024 Average glucose Estimated from glycated hemoglobin (Bld) [Mass/Vol] 100 mg/dL [facility] Hematocrit Auto (Bld) [Volum e fraction]Ordered By: Clarke Hu on 02-24-2024 Hematocrit (Bld) [Volume fraction] 36.9 % 34.0-46.4 [facility] Hemoglobin A1c percentageOrd ered By: Clarke Hu on 02-24-2024 HbA1c (Bld) [Mass fraction] 5.1 % 4.3-5.6 [facility] Comment on above: Increased risk for d iabetes: 5.7 - 6.4diabetes: >6.4glycemic control for adults with diabetes: <7.0 Hemoglobin [Mass/volume] in BloodOrdered By: Clarke Hu on 02-24-2024 Hemoglobin (Bld) [Mass/Vol] 11.7 g/dL 11.8-15.4 [facility] INR in Platelet poor plasma by Coagulation assayOrdered By: Clarke Hu on 02-24-2024 INR Coag (PPP) [Relative time] 1.1 {INR} [facility] Comment on above: INR Therapeutic Rang e [...] 10*3/uL 3.8-11.6 [facility] Lymphocytes Auto (Bld) [#/Vo l]Ordered By: Clarke Hu on 02-24-2024 Lymphocytes (Bld) [#/Vol] 2.1 10*3/uL 1.00-4.8 [facility] Lymphocytes/100 WBC Auto (Bl d)Ordered By: Clarke Hu on 02-24-2024 Lymphocytes/100 WBC (Bld) 26.9 % . [facility] MCH Auto (RBC) [Entitic mass ]Ordered By: Clarke Hu on 02-24-2024 MCH (RBC) [Entitic mass] 24.4 pg 24.7-34.3 [facility] MCHC Auto (RBC) [Mass/Vol]Or dered By: Clarke Hu on 02-24-2024 MCHC (RBC) [Mass/Vol] 31.8 g/dL 32.0-35.0 [facility] MCV Auto (RBC) [Entitic vol] Ordered By: Clarke Hu on 02-24-2024 MCV (RBC) [Entitic vol] 76.5 fL 80-100 [facility] Monocytes Auto (Bld) [#/Vol] Ordered By: Calrke Hu on 02-24-2024 Monocytes (Bld) [#/Vol] 0.7 10*3/uL 0.0-0.8 [facility] Monocytes/100 WBC Auto (Bld) Ordered By: Clarke Hu on 02-24-2024 Monocytes/100 WBC (Bld) 9.3 % . [facility] Neutrophils Auto (Bld) [#/Vo l]Ordered By: Clarke Hu on 02-24-2024 Neutrophils (Bld) [#/Vol] 5.0 10*3/uL 1.8-7.7 [facility] Neutrophils/100 WBC Auto (Bl d)Ordered By: Clarke Hu on 02-24-2024 Neutrophils/100 WBC (Bld) 63.1 % . [facility] Nucleated erythrocytes [Pres ence] in Blood by Automated countOrdered By: Clarke Hu on 02-24-2024 Nucleated RBC Auto Ql (Bld) 0.0 /100{WBC} 0-0.5 [facility] Platelet mean volume Auto (B ld) [Entitic vol]Ordered By: Clarke Hu on 02-24-2024 Platelet mean volume (Bld) [Entitic vol] 11.1 fL 6.3-10.7 [facility] Platelets Auto (Bld) [#/Vol] Ordered By: Calrke Hu on 02-24-2024 Platelets (Bld) [#/Vol] 187 10*3/uL 150-450 [facility] Prothrombin time (PT)Ordered By: Clarke Hu on 02-24-2024 PT Coag (PPP) [Time] 12.2 s 9.0-12.9 [facility] Comment on above: A hematocrit value g reater than 55% may lead to inaccurate results in coagulation testing. Patients having hematocrit values >55% require a special collection tube for coagulation studies. Please contact the laboratory at [phone] for redraw instructions. RBC Auto (Bld) [#/Vol]Ordere d By: Clarke Hu on 02-24-2024 RBC (Bld) [#/Vol] 4.82 10*6/uL 3.60-5.00 [facility] Thyrotropin [Units/volume] i n Serum or PlasmaOrdered By: Clarke Hu on 02-24-2024 TSH Qn 0.96 m[IU]/L 0.45-5.33 [facility] Thyroxine (T4) free [Mass/vo lume] in Serum or PlasmaOrdered By: Clarke Hu on 02-24-2024 Free T4 [Mass/Vol] 0.82 ng/dL 0.61-1.12 [facility] WBC Auto (Bld) [#/Vol]Ordere d By: Clarke Hu on 02-24-2024 WBC (Bld) [#/Vol] 7.9 10*3/uL 3.8-11.6 [facility] MR Thoracic spine WO and W c ontrast Joe 01-19-2024 [facility] HCG ( test) Ql (U)o n 12-23-2023 Interpretation and review of laboratory results Normal [facility] Preg Test, Ur Negative [facility] - Microbiology an d Antimicrobial susceptibilityon 12-23-2023 SARS-CoV-2 (COVID-19) RNA DEIRDRE+probe Ql (Unsp spec) Negative [facility] No Panel Informationon 12-23 FLU A Negative [facility] FLU B Negative [facility] Interpretation and review of laboratory results Normal [facility] CBC W Auto Differential pane l (Bld)on 09-25-2023 Basophils (Bld) [#/Vol] 0.03 10*3/uL <0.11 k/uL [facility] Basophils/100 WBC (Bld) 0.8 % [facility] Differential cell count method Nom (Bld) Auto [facility] Eosinophils (Bld) [#/Vol] 0.07 10*3/uL <0.46 k/uL [facility] Eosinophils/100 WBC (Bld) 1.8 % [facility] Erythrocyte distribution width (RBC) [Ratio] 17.1 % High 11.5 - 15.0 % [facility] Hematocrit (Bld) [Volume fraction] 41.0 % 36.0 - 46.0 % [facility] Hemoglobin (Bld) [Mass/Vol] 12.5 g/dL 11.5 - 15.5 g/dL [facility] Immature granulocytes (Bld) [#/Vol] <0.10 k/uL [facility] Immature granulocytes/100 WBC (Bld) 0.0 % [facility] Lymphocytes (Bld) [#/Vol] 2.63 10*3/uL 1.00 - 4.00 k/uL [facility] Lymphocytes/100 WBC (Bld) 66.4 % [facility] MCH (RBC) [Entitic mass] 23.7 pg Low 26.0 - 34.0 pg [facility] MCHC (RBC) [Mass/Vol] 30.5 g/dL 30.5 - 36.0 g/dL [facility] MCV (RBC) [Entitic vol] 77.7 fL Low 80.0 - 100.0 fL [facility] Monocytes (Bld) [#/Vol] 0.51 10*3/uL <0.87 k/uL [facility] Monocytes/100 WBC (Bld) 12.9 % [facility] Neutrophils (Bld) [#/Vol] 0.72 10*3/uL Low 1.45 - 7.50 k/uL [facility] Neutrophils/100 WBC (Bld) 18.1 % [facility] Nucleated RBC (Bld) [#/Vol] <0.01 k/uL [facility] Nucleated RBC/100 WBC (Bld) [Ratio] 0.0 /100 WBC [facility] Platelet mean volume (Bld) [Entitic vol] [facility] Platelets (Bld) [#/Vol] 179 10*3/uL 150 - 400 k/uL [facility] RBC (Bld) [#/Vol] 5.28 10*6/uL High 3.90 - 5.2 0 m/uL [facility] WBC (Bld) [#/Vol] 3.96 10*3/uL 3.70 - 11. 00 k/uL [facility] Comprehensive metabolic 2000 panelon 09-25-2023 Albumin [Mass/Vol] 4.5 g/dL 3.9 - 4.9 g/dL [facility] ALP [Catalytic activity/Vol] 58 U/L 34 - 123 U/L [facility] ALT [Catalytic activity/Vol] 11 U/L 7 - 38 U/L [facility] Anion gap [Moles/Vol] 9 mmol/L 9 - 18 mmol/L [facility] AST [Catalytic activity/Vol] 17 U/L 13 - 35 U/L [facility] Bilirubin [Mass/Vol] 0.5 mg/dL 0.2 - 1 .3 mg/dL [facility] Calcium [Mass/Vol] 9.5 mg/dL 8.5 - 10. 2 mg/dL [facility] Chloride [Moles/Vol] 106 mmol/L High 97 - 10 5 mmol/L [facility] CO2 [Moles/Vol] 26 mmol/L 22 - 30 mmol/L [facility] Creatinine [Mass/Vol] 0.95 mg/dL 0.58 - 0.96 mg/dL [facility] Estimated Glomerular Filtration Rate 79 mL/min/1.73m >=60 mL/min/1.73m [facility] Glucose [Mass/Vol] 89 mg/dL 74 - 99 mg/dL [facility] Potassium [Moles/Vol] 3.6 mmol/L Low 3.7 - 5.1 mmol/L [facility] Protein [Mass/Vol] 7.4 g/dL 6.3 - 8.0 g/dL [facility] Sodium [Moles/Vol] 141 mmol/L 136 - 144 mmol/L [facility] Urea nitrogen [Mass/Vol] 14 mg/dL 7 - 21 mg/dL [facility] HBV surface Ab Ql (S)on 09-10 HBV surface Ab Qn (S) 528.76 mIU/mL [facility] HEP B CORE AB TOTALon 2022 HBV core Ab Ql (S) Negative Negative [facility] HEP B SURF ABon 09-25-2023 HBV surface Ab Ql (S) Positive [facility] HEP B SURF AG SCRNon 023 HBV surface Ag Ql (S) Negative Negative [facility] HEPATITIS C ANTIBODY IA WITH CONFIRMATIONon 09-25-2023 HCV Ab Ql (S) Negative Negative [facility] PELVIC US WHIon 08-26-2023 [facility] Trichmonas Vaginalis Screen (EIA)on 01-24-2023 Trichomonas Vaginalis Screen (EIA) Negative Normal [facility] Comment on above: Performed By: #### E TRIC #### [facility] [address] [place] [address] Wet [employer] On berry 01-24-2023 Wet Prep Clue Cellls 1+ Abnormal [facility] Comment on above: Performed By: #### W ETPR #### [facility] [address] [place] [address] Wet Prep Trichomonas See EIA Normal [facility] Comment on above: Performed By: #### W ETPR #### [facility] [address] [place] [address] Wet Prep Yeast None Seen Normal [facility] Comment on above: Performed By: #### W ETPR #### [facility] [address] [place] [address] CBC W Auto Differential pane l (Bld)on 01-17-2023 Basophils (Bld) [#/Vol] 0.07 10*3/uL <0.11 k/uL [facility] Basophils/100 WBC (Bld) 1.0 % [facility] Differential cell count method Nom (Bld) Auto [facility] Eosinophils (Bld) [#/Vol] 0.07 10*3/uL <0.46 k/uL [facility] Eosinophils/100 WBC (Bld) 1.0 % [facility] Erythrocyte distribution width (RBC) [Ratio] 15.5 % High 11.5 - 15.0 % [facility] Hematocrit (Bld) [Volume fraction] 31.5 % Low 36.0 - 46.0 % [facility] Hemoglobin (Bld) [Mass/Vol] 9.4 g/dL Low 11.5 - 15.5 g/dL [facility] Immature granulocytes (Bld) [#/Vol] <0.10 k/uL [facility] Immature granulocytes/100 WBC (Bld) 0.3 % [facility] Lymphocytes (Bld) [#/Vol] 2.30 10*3/uL 1.00 - 4.00 k/uL [facility] Lymphocytes/100 WBC (Bld) 32.7 % [facility] MCH (RBC) [Entitic mass] 22.2 pg Low 26.0 - 34.0 pg [facility] MCHC (RBC) [Mass/Vol] 29.8 g/dL Low 30.5 - 36.0 g/dL [facility] MCV (RBC) [Entitic vol] 74.3 fL Low 80.0 - 100.0 fL [facility] Monocytes (Bld) [#/Vol] 0.51 10*3/uL <0.87 k/uL [facility] Monocytes/100 WBC (Bld) 7.2 % [facility] Neutrophils (Bld) [#/Vol] 4.07 10*3/uL 1.45 - 7.50 k/uL [facility] Neutrophils/100 WBC (Bld) 57.8 % [facility] Nucleated RBC (Bld) [#/Vol] <0.01 k/uL [facility] Nucleated RBC/100 WBC (Bld) [Ratio] 0.0 /100 WBC [facility] Platelet mean volume (Bld) [Entitic vol] 13.6 fL High 9.0 - 12.7 fL [facility] Platelets (Bld) [#/Vol] 304 10*3/uL 150 - 400 k/uL [facility] RBC (Bld) [#/Vol] 4.24 10*6/uL 3.90 - 5.2 0 m/uL [facility] WBC (Bld) [#/Vol] 7.04 10*3/uL 3.70 - 11. 00 k/uL [facility] Comprehensive metabolic 2000 panelon 01-17-2023 Albumin [Mass/Vol] 4.5 g/dL 3.9 - 4.9 g/dL [facility] ALP [Catalytic activity/Vol] 62 U/L 34 - 123 U/L [facility] ALT [Catalytic activity/Vol] 11 U/L 7 - 38 U/L [facility] Anion gap [Moles/Vol] 9 mmol/L 9 - 18 mmol/L [facility] AST [Catalytic activity/Vol] 18 U/L 13 - 35 U/L [facility] Bilirubin [Mass/Vol] 0.3 mg/dL 0.2 - 1 .3 mg/dL [facility] Calcium [Mass/Vol] 9.8 mg/dL 8.5 - 10. 2 mg/dL [facility] Chloride [Moles/Vol] 104 mmol/L 97 - 10 5 mmol/L [facility] CO2 [Moles/Vol] 26 mmol/L 22 - 30 mmol/L [facility] Creatinine [Mass/Vol] 0.79 mg/dL 0.58 - 0.96 mg/dL [facility] Estimated Glomerular Filtration Rate 99 mL/min/1.73m >=60 mL/min/1.73m [facility] Glucose [Mass/Vol] 69 mg/dL Low 74 - 99 mg/dL [facility] Potassium [Moles/Vol] 4.2 mmol/L 3.7 - 5.1 mmol/L [facility] Protein [Mass/Vol] 7.9 g/dL 6.3 - 8.0 g/dL [facility] Sodium [Moles/Vol] 139 mmol/L 136 - 144 mmol/L [facility] Urea nitrogen [Mass/Vol] 11 mg/dL 7 - 21 mg/dL [facility] MR Brain WO and W contrast [...] Improvement: None. New Enhancing Lesions: None T2 [place] of Disease: Mild. Parenchymal Volume Loss: None. [...] history of multiple sclerosis. Cord T2 Plaque [place]: Moderate New T2 Lesions: None Interval Cord [...] equal to 2mm). DIVISION OF RADIOLOGY Provider, [facility] - 01/02/2023 * * *Final Report* * * DATE OF EXAM: Jan 02 2023 11:24AM [facility] 0295 - MRI BRAIN WO/W IVCON / [...] Improvement: None. New Enhancing Lesions: None T2 [place] of Disease: Mild. Parenchymal Volume Loss: None. [...] history of multiple sclerosis. Cord T2 Plaque [place]: Moderate New T2 Lesions: None Interval Cord [...] vertebrae with counting from the craniocervical junction. Rn Digestive: PSCB Transcribe Date/Time: Jan 02 2023 12:13P Dictated by : JEANIE MAKI MD This examination was interpreted and the report reviewed and electronically signed by: JEANIE MAKI MD on Jan 02 2023 12:23PM [facility] MR Cervical spine WO and W [...] Improvement: None. New Enhancing Lesions: None T2 [place] of Disease: Mild. Parenchymal Volume Loss: None. [...] history of multiple sclerosis. Cord T2 Plaque [place]: Moderate New T2 Lesions: None Interval Cord [...] equal to 2mm). DIVISION OF RADIOLOGY Provider, [facility] - 01/02/2023 * * *Final [...] Improvement: None. New Enhancing Lesions: None T2 [place] of Disease: Mild. Parenchymal Volume Loss: None. [...] history of multiple sclerosis. Cord T2 Plaque [place]: Moderate New T2 Lesions: None Interval Cord [...] vertebrae with counting from the craniocervical junction. Rn Digestive: ANGEL Transcribe Date/Time: Jan 02 2023 12:13P Dictated by : JEANIE MAKI MD This examination was interpreted and the report reviewed and electronically signed by: JEANIE MAKI MD on Jan 02 2023 12:23PM EST [facility] No Panel Informationon 01-02 IMPRESSION: Multiple [...] vertebrae with counting from the craniocervical junction. Rn Digestive: PSCB Transcribe Date/Time: Jan 02 2023 12:13P Dictated by : JEANIE MAKI MD This examination was interpreted and the report reviewed and electronically signed by: JEANIE MAKI MD on Jan 02 2023 12:23PM [facility] DIVISION OF RADIOLOGY Brain Enhancing Lesions None [facility] Brain Interval Improvement None [facility] Brain New T2 Lesions None Site [facility] Brain Other Significant MRI Findings None. [facility] Brain Parenchymal Volume Loss None [facility] Brain T2 [place] of Disease Mild [facility] Cervical spine enhancing lesions None [facility] Cervical Spine New T2 Lesions None [facility] Cervical Spine T2 [place] of Disease Moderate [facility] Radiology Study observation (narrative) [facility] No Panel InformationOrdered By: Ccf Provider on 01-02-2023 [facility] C.trachomatis N.gonorrhoeae DNAon 12-10-2022 C. trachomatis DNA DEIRDRE+probe Ql (Unsp spec) Negative Normal Negative [facility] N. gonorrhoeae DNA DEIRDRE+probe Ql (Unsp spec) Negative Normal Negative [facility] Trichmonas Vaginalis Screen (EIA)on 12-06-2022 Trichomonas Vaginalis Screen (EIA) Negative Normal [facility] Comment on above: Performed By: #### E TRIC #### [facility] [address] [place] [address] [employer] On berry 12-06-2022 Wet Prep Clue Cellls 1+ Abnormal [facility] Comment on above: Performed By: #### W ETPR #### [facility] [address] [place] [address] Wet Prep Trichomonas See EIA Normal [facility] Comment on above: Performed By: #### W ETPR #### [facility] [address] [place] [address] Wet Prep Yeast None Seen Normal [facility] Comment on above: Performed By: #### W ETPR #### [facility] [address] [place] [address] Albumin [Mass/volume] in Ser um or PlasmaOrdered By: Vishal Agarwal on 10-27-2022 Albumin [Mass/Vol] 4.1 g/dL 3.2-5.5 [facility] Basophils Auto (Bld) [#/Vol] Ordered By: Vishal Agarwal on 10-27-2022 Basophils (Bld) [#/Vol] 0.0 10*3/uL 0.0-0.2 [facility] Basophils/100 WBC Auto (Bld) Ordered By: Vishal Agarwal on 10-27-2022 Basophils/100 WBC (Bld) 0.4 % . [facility] COVID CepheidOrdered By: Brook Agarwal on 10-27-2022 SARS-CoV-2 (COVID-19) Ab IA Ql Positive Negative [facility] Comment on above: This is a duplicate [employer] Xpert Xpress CoV-2/Flu/RSV Plus RNA by RT-PCR result to be used for statistical tracking purpose only. SARS-CoV-2 (COVID-19) RNA DEIRDRE+probe Ql (Unsp spec) [facility] Creatinine and Glomerular fi ltration rate.predicted panel (S/P/Bld)Ordered By: Vishal Agarwal on 10-27-2022 Creatinine [Mass/Vol] 0.96 mg/dL 0.44-1.03 [facility] Eosinophils Auto (Bld) [#/Vo l]Ordered By: Vishal Agarwal on 10-27-2022 Eosinophils (Bld) [#/Vol] 0.0 10*3/uL 0.0-0.45 [facility] Eosinophils/100 WBC Auto (Bl d)Ordered By: Vishal Agarwal on 10-27-2022 Eosinophils/100 WBC (Bld) 0.0 % . [facility] Erythrocyte distribution wid th Auto (RBC) [Ratio]Ordered By: Vishal Agarwal on 10-27-2022 Erythrocyte distribution width (RBC) [Ratio] 17.4 % 11.9-15.3 [facility] Estimated glomerular filtrat ion rate (GFR) non- AmericanOrdered By: Vishal Agarwal on 10-27-2022 GFR/1.73 sq M.predicted among non-blacks MDRD (S/P/Bld) [Vol rate/Area] > 60 mL/Min [facility] Globulin Calc (S) [Mass/Vol] Ordered By: Vishal Agarwal on 10-27-2022 Globulin (S) [Mass/Vol] 3.5 g/dL [facility] Hematocrit Auto (Bld) [Volum e fraction]Ordered By: Vishal Agarwal on 10-27-2022 Hematocrit (Bld) [Volume fraction] 38.7 % 34.0-46.4 [facility] Hemoglobin [Mass/volume] in BloodOrdered By: Vishal Agarwal on 10-27-2022 Hemoglobin (Bld) [Mass/Vol] 12.1 g/dL 11.8-15.4 [facility] Leukocytes [#/volume] correc che for nucleated erythrocytes in Blood by Automated counOrdered By: Vishal Agarwal on 10-27-2022 WBC corrected for nucl RBC Auto (Bld) [#/Vol] 4.5 10*3/uL 3.8-11.6 [facility] Lymphocytes Auto (Bld) [#/Vo l]Ordered By: Vishal Agarwal on 10-27-2022 Lymphocytes (Bld) [#/Vol] 0.5 10*3/uL 1.00-4.8 [facility] Lymphocytes/100 WBC Auto (Bl d)Ordered By: Vishal Agarwal on 10-27-2022 Lymphocytes/100 WBC (Bld) 10.8 % . [facility] MCH Auto (RBC) [Entitic mass ]Ordered By: Vishal Agarwal on 10-27-2022 MCH (RBC) [Entitic mass] 23.7 pg 24.7-34.3 [facility] MCHC Auto (RBC) [Mass/Vol]Or dered By: Vishal Agarwal on 10-27-2022 MCHC (RBC) [Mass/Vol] 31.2 g/dL 32.0-35.0 [facility] MCV Auto (RBC) [Entitic vol] Ordered By: Vishal Agarwal on 10-27-2022 MCV (RBC) [Entitic vol] 76.0 fL 80-100 [facility] Monocyte distribution width [Entitic volume] in Blood by AutomatedOrdered By: Vishal Agarwal on 10-27-2022 Monocyte distribution width Auto (Bld) [Entitic vol] 24.86 % 0.00-20.00 [facility] Comment on above: For adults in ED, MD W > 20.0 may be associated with a higher risk of sepsis during the first 12 hrs of hospital admission Monocytes Auto (Bld) [#/Vol] Ordered By: Vishal Agarwal on 10-27-2022 Monocytes (Bld) [#/Vol] 0.8 10*3/uL 0.0-0.8 [facility] Monocytes/100 WBC Auto (Bld) Ordered By: Vishal Agarwal on 10-27-2022 Monocytes/100 WBC (Bld) 16.8 % . [facility] Neutrophils Auto (Bld) [#/Vo l]Ordered By: Vishal Agarwal on 10-27-2022 Neutrophils (Bld) [#/Vol] 3.2 10*3/uL 1.8-7.7 [facility] Neutrophils/100 WBC Auto (Bl d)Ordered By: Vishal Agarwal on 10-27-2022 Neutrophils/100 WBC (Bld) 72.0 % . [facility] No Panel InformationOrdered By: Vishal Agarwal on 10-27-2022 Estimated GFR () > 60 mL/Min [facility] Comment on above: GFR estimated refere nce range: According to KDOQI guidelines, <60 ml/min/1.73m2 is sufficient to diagnose a patient with chronic kidney disease. Pharmacy Creatinine Clearance (Chem 75.11 [facility] Nucleated erythrocytes [Pres ence] in Blood by Automated countOrdered By: Vishal Agarwal on 10-27-2022 Nucleated RBC Auto Ql (Bld) 0.1 /100{WBC} 0-0.5 [facility] Platelet mean volume Auto (B ld) [Entitic vol]Ordered By: Vishal Agarwal on 10-27-2022 Platelet mean volume (Bld) [Entitic vol] 11.0 fL 6.3-10.7 [facility] Platelets Auto (Bld) [#/Vol] Ordered By: Vishal Agarwal on 10-27-2022 Platelets (Bld) [#/Vol] 148 10*3/uL 150-450 [facility] Protein [Mass/volume] in Ser um or PlasmaOrdered By: Vishal Agarwal on 10-27-2022 Protein [Mass/Vol] 7.6 g/dL 6.1-7.9 [facility] RBC Auto (Bld) [#/Vol]Ordere d By: Vishal Agarwal on 10-27-2022 RBC (Bld) [#/Vol] 5.10 10*6/uL 3.60-5.00 [facility] Serum or plasma alanine gannon otransferase measurement without P-5'-P (enzymatic activiOrdered By: Vishal Agarwal on 10-27-2022 ALT No additional P-5'-P [Catalytic activity/Vol] 18 U/L 10-60 [facility] Serum or plasma albumin/glob ulin mass ratioOrdered By: Vishal Agarwal on 10-27-2022 Albumin/Globulin [Mass ratio] 1.2 {ratio} [facility] Serum or plasma alkaline bull sphatase measurement (enzymatic activity/volume)Ordered By: Vishal Agarwal on 10-27-2022 ALP [Catalytic activity/Vol] 43 U/L 32-92 [facility] Serum or plasma anion gap de terminationOrdered By: Vishal Agarwal on 10-27-2022 Anion gap [Moles/Vol] 13.5 mmol/L 6.0-15.0 [facility] Serum or plasma aspartate am inotransferase measurement (enzymatic activity/volume)Ordered By: Vishal Agarwal on 10-27-2022 AST [Catalytic activity/Vol] 24 U/L 10-42 [facility] Serum or plasma calcium scotty urement (mass/volume)Ordered By: Vishal Agarwal on 10-27-2022 Calcium [Mass/Vol] 9.2 mg/dL 8.2-10.2 [facility] Serum or plasma chloride suzie surement (moles/volume)Ordered By: Vishal Agarwal on 10-27-2022 Chloride [Moles/Vol] 101 mmol/L 95-114 [facility] Serum or plasma glucose soctty urement (mass/volume)Ordered By: Vishal Agarwal on 10-27-2022 Glucose [Mass/Vol] 102 mg/dL 70-100 [facility] Comment on above: ADA recommended refe rence rangeRandom Glucose Reference Range is dependent on time and content of last meal. Glucose of more than 200 mg/dL in a nonstressed, ambulatory subject supports the diagnosis of Diabetes Mellitus. Serum or plasma potassium me asurement (moles/volume)Ordered By: Vishal Agarwal on 10-27-2022 Potassium [Moles/Vol] 3.7 mmol/L 3.5-5.1 [facility] Serum or plasma sodium measu rement (moles/volume)Ordered By: Vishal Agarwal on 10-27-2022 Sodium [Moles/Vol] 134 mmol/L 136-146 [facility] Serum or plasma total biliru bin measurement (mass/volume)Ordered By: Vishal Agarwal on 10-27-2022 Bilirubin [Mass/Vol] 0.8 mg/dL 0.3-1.2 [facility] Serum or plasma total carbon dioxide measurement (moles/volume)Ordered By: Vishal Agarwal on 10-27-2022 CO2 [Moles/Vol] 23.2 mmol/L 22.0-30.0 [facility] Serum or plasma urea nitroge n measurement (mass/volume)Ordered By: Vishal Agarwal on 10-27-2022 Urea nitrogen [Mass/Vol] 10 mg/dL 9- [facility] WBC Auto (Bld) [#/Vol]Ordere d By: Vishal Agarwal on 10-27-2022 WBC (Bld) [#/Vol] 4.5 10*3/uL 3.8-11.6 [facility] HBV surface Ab IA Ql (S)on 1 11-27-2021 HBV surface Ag Ql (S) Negative Negative [facility] HEP B CORE AB TOTALon 2021 HBV core Ab Ql (S) Negative Negative [facility] HEP B SURF AB QUALon 022 HBV surface Ab Ql (S) Positive Abnormal Negative [facility] HEP C AB IA W/CONF SCRNon HCV Ab Ql (S) Negative Negative [facility] MR Brain WO and W contrast [...] Improvement: None. New Enhancing Lesions: None T2 [place] of Disease: Mild. Parenchymal Volume Loss: None. Other Significant Findings: None. MR CERVICAL: Counting reference: Craniocervical junction. Anatomic Variants: None. Alignment: Alignment is anatomic. Craniocervical Junction: Craniocervical junction is normal. Cord Findings: Patchy foci of hyperintensity are noted in the cervical cord on the T2, IR and axial gradient echo images compatible with the history of multiple sclerosis. Cord T2 Plaque [place]: Moderate New T2 Lesions: None Interval Cord [...] history of multiple sclerosis. Cord T2 Plaque [place]: Moderate New T2 Lesions: Greater than three [...] equal to 2mm). DIVISION OF RADIOLOGY Provider, [facility] - 07/23/2022 * * *Final [...] Improvement: None. New Enhancing Lesions: None T2 [place] of Disease: Mild. Parenchymal Volume Loss: None. Other Significant Findings: None. MR CERVICAL: Counting reference: Craniocervical junction. Anatomic Variants: None. Alignment: Alignment is anatomic. Craniocervical Junction: Craniocervical junction is normal. Cord Findings: Patchy foci of hyperintensity are noted in the cervical cord on the T2, IR and axial gradient echo images compatible with the history of multiple sclerosis. Cord T2 Plaque [place]: Moderate New T2 Lesions: None Interval Cord [...] history of multiple sclerosis. Cord T2 Plaque [place]: Moderate New T2 Lesions: Greater than three [...] and assume there are 5 lumbar-type vertebrae. Rn Digestive: PSCB Transcribe Date/Time: Jul 23 2022 11:16A Dictated by : ANIRUDH NUÑEZ MD This examination was interpreted and the report reviewed and electronically signed by: ANIRUDH NUÑEZ MD on Jul 23 2022 6:11PM [facility] MR Cervical spine WO and W [...] Improvement: None. New Enhancing Lesions: None T2 [place] of Disease: Mild. Parenchymal Volume Loss: None. Other Significant Findings: None. MR CERVICAL: Counting reference: Craniocervical junction. Anatomic Variants: None. Alignment: Alignment is anatomic. Craniocervical Junction: Craniocervical junction is normal. Cord Findings: Patchy foci of hyperintensity are noted in the cervical cord on the T2, IR and axial gradient echo images compatible with the history of multiple sclerosis. Cord T2 Plaque [place]: Moderate New T2 Lesions: None Interval Cord [...] history of multiple sclerosis. Cord T2 Plaque [place]: Moderate New T2 Lesions: Greater than three [...] equal to 2mm). DIVISION OF RADIOLOGY Provider, [facility] - 07/23/2022 * * *Final Report* * * DATE OF EXAM: Jul 23 2022 10:56AM [facility] 0298 - MRI CERVICAL SPINE WO/W IVCON [...] Improvement: None. New Enhancing Lesions: None T2 [place] of Disease: Mild. Parenchymal Volume Loss: None. Other Significant Findings: None. MR CERVICAL: Counting reference: Craniocervical junction. Anatomic Variants: None. Alignment: Alignment is anatomic. Craniocervical Junction: Craniocervical junction is normal. Cord Findings: Patchy foci of hyperintensity are noted in the cervical cord on the T2, IR and axial gradient echo images compatible with the history of multiple sclerosis. Cord T2 Plaque [place]: Moderate New T2 Lesions: None Interval Cord [...] history of multiple sclerosis. Cord T2 Plaque [place]: Moderate New T2 Lesions: Greater than three [...] and assume there are 5 lumbar-type vertebrae. Rn Digestive: ANGEL Transcribe Date/Time: Jul 23 2022 11:16A Dictated by : ANIRUDH NUÑEZ MD This examination was interpreted and the report reviewed and electronically signed by: ANIRUDH NUÑEZ MD on Jul 23 2022 6:11PM [facility] MR Thoracic spine WO and W c donrast Joe 07-23-2022 * * *Final Report* * [...] Improvement: None. New Enhancing Lesions: None T2 [place] of Disease: Mild. Parenchymal Volume Loss: None. Other Significant Findings: None. MR CERVICAL: Counting reference: Craniocervical junction. Anatomic Variants: None. Alignment: Alignment is anatomic. Craniocervical Junction: Craniocervical junction is normal. Cord Findings: Patchy foci of hyperintensity are noted in the cervical cord on the T2, IR and axial gradient echo images compatible with the history of multiple sclerosis. Cord T2 Plaque [place]: Moderate New T2 Lesions: None Interval Cord [...] history of multiple sclerosis. Cord T2 Plaque [place]: Moderate New T2 Lesions: Greater than three [...] equal to 2mm). DIVISION OF RADIOLOGY Provider, [facility] - 07/23/2022 * * *Final [...] Improvement: None. New Enhancing Lesions: None T2 [place] of Disease: Mild. Parenchymal Volume Loss: None. Other Significant Findings: None. MR CERVICAL: Counting reference: Craniocervical junction. Anatomic Variants: None. Alignment: Alignment is anatomic. Craniocervical Junction: Craniocervical junction is normal. Cord Findings: Patchy foci of hyperintensity are noted in the cervical cord on the T2, IR and axial gradient echo images compatible with the history of multiple sclerosis. Cord T2 Plaque [place]: Moderate New T2 Lesions: None Interval Cord [...] history of multiple sclerosis. Cord T2 Plaque [place]: Moderate New T2 Lesions: Greater than three [...] and assume there are 5 lumbar-type vertebrae. Rn Digestive: ANGEL Transcribe Date/Time: Jul 23 2022 11:16A Dictated by : ANIRUDH NUÑEZ MD This examination was interpreted and the report reviewed and electronically signed by: ANIRUDH NUÑEZ MD on Jul 23 2022 6:11PM [facility] Panel Informationon 07-23 IMPRESSION: Multiple intracranial [...] and assume there are 5 lumbar-type vertebrae. Rn Digestive: PSCB Transcribe Date/Time: Jul 23 2022 11:16A Dictated by : ANIRUDH NUÑEZ MD This examination was interpreted and the report reviewed and electronically signed by: ANIRUDH NUÑEZ MD on Jul 23 2022 6:11PM [facility] DIVISION OF RADIOLOGY Radiology Study observation (narrative) [facility] No Panel InformationOrdered By: Ccf Provider on 07-23-2022 [facility] CBC W Auto Differential pane l (Bld)on 04-25-2022 Abs Immature Gran <0.03 <0.10 k/uL [facility] Basophils (Bld) [#/Vol] 0.03 10*3/uL <0.11 k/uL [facility] Basophils/100 WBC (Bld) 0.6 % [facility] Differential cell count method Nom (Bld) Auto [facility] Eosinophils (Bld) [#/Vol] 0.10 10*3/uL <0.46 k/uL [facility] Eosinophils/100 WBC (Bld) 2.0 % [facility] Erythrocyte distribution width (RBC) [Ratio] 13.9 % 11.5 - 15.0 % [facility] Hematocrit (Bld) [Volume fraction] 38.5 % 36.0 - 46.0 % [facility] Hemoglobin (Bld) [Mass/Vol] 12.0 g/dL 11.5 - 15.5 g/dL [facility] Immature Gran % 0.2 % [facility] Lymphocytes (Bld) [#/Vol] 1.54 10*3/uL 1.00 - 4.00 k/uL [facility] Lymphocytes/100 WBC (Bld) 30.2 % [facility] MCH (RBC) [Entitic mass] 25.4 pg Low 26.0 - 34.0 pg [facility] MCHC (RBC) [Mass/Vol] 31.2 g/dL 30.5 - 36.0 g/dL [facility] MCV (RBC) [Entitic vol] 81.4 fL 80.0 - 100.0 fL [facility] Monocytes (Bld) [#/Vol] 0.66 10*3/uL <0.87 k/uL [facility] Monocytes/100 WBC (Bld) 12.9 % [facility] Neutrophils (Bld) [#/Vol] 2.76 10*3/uL 1.45 - 7.50 k/uL [facility] Neutrophils/100 WBC (Bld) 54.1 % [facility] Nucleated RBC (Bld) [#/Vol] 10*3/uL <0.01 k/uL [facility] Nucleated RBC/100 WBC (Bld) [Ratio] 0.0 /100 WBC [facility] Platelet mean volume (Bld) [Entitic vol] 13.5 fL High 9.0 - 12.7 fL [facility] Platelets (Bld) [#/Vol] 168 10*3/uL 150 - 400 k/uL [facility] RBC (Bld) [#/Vol] 4.73 10*6/uL 3.90 - 5.2 0 m/uL [facility] WBC (Bld) [#/Vol] 5.10 10*3/uL 3.70 - 11. 00 k/uL [facility] URINALYSIS, REFLEX MICROSCOP ICon 04-25-2022 Bilirubin Ql (U) Negative Negative [facility] Clarity (Unsp spec) Clear Clear [facility] Color (U) Light Yellow Yellow [facility] Glucose Test strip (U) [Mass/Vol] Negative Negative [facility] Hemoglobin Ql (U) Negative Negative [facility] Ketones Ql (U) Negative Negative [facility] Leukocyte esterase Test strip Ql (U) Negative Negative [facility] Nitrite Ql (U) Negative Negative [facility] pH (U) 6.0 [pH] 5.0 - 8.0 [facility] Protein (U) [Mass/Vol] Negative Negative [facility] Specific gravity (U) [Rel density] 1.021 1.005 - 1.030 [facility] Urobilinogen Ql (U) Negative Negative [facility] CNPNon 11-13-2021 CNPN Telephone (NEADFV) -------- CAROL ANN MARTINEZ F ([id number]) 1985 F Date Time Provider Department 11/13/21 [...] (FLONASE) 50 mcg/actuation nasal spray Use 1 [place] in each nostril once daily. - MAGNESIUM ORAL Take 1 tablet by mouth twice daily. - Xuhyrasc-Bo-Utk-Fe-FA ( VITAMIN) tab Take 1 tablet by [...] Encounter Status:Closed by AUDIE GABRIEL on 11/13/21 [facility] 07-24-2021 CNPN Telephone (NEADFV) -------- CAROL ANN MARTINEZ ([id number]) 1985 F Date Time Provider Department 07/24/21 NIDIA GARCIA During your visit today, we recorded the following information about you: Hanna Carroll 07/24/2021 12:34 PM Signed Patient called stating she is scheduled for an Ocrevus infusion on August 15, but will be out of state in [place]. She would like to have the infusion done there at [facility]. Also,she has new insurance as of May and will need to get the Ocrevus approved through her new insurance ([employer]- ). For questions call patient at [phone] Alexandra Alexander Sec 07/24/2021 1:21 PM Signed Patient called back with a phone number of [phone] for [facility]. The phone # her [employer] is [phone]. Audie Gabriel RN 07/24/2021 1:51 PM Signed [...] (FLONASE) 50 mcg/actuation nasal spray Use 1 [place] in each nostril once daily. - MAGNESIUM ORAL Take 1 tablet by mouth twice daily. - Smizifty-Qh-Bwz-Fe-FA ( VITAMIN) tab Take 1 tablet by [...] Encounter Status:Closed by AUDIE GABRIEL on 07/24/21 [facility] Telephone Encounteron 2020 [employer] Authentication Interface Message Text Patient was identified by name and date of . Patient given message, patient denied additional questions. ----- Message from Sofy Pandya MD sent at 03/22/2021 12:34 PM EDT ----- Please notify neg HPV with ascus pap, OK to f/u in [address] Sofy Pandya Normal [facility] Telephone Encounteron 2020 [employer] Authentication Interface Message Text ----- Message from Sofy Pandya MD sent at 03/08/2021 2:28 PM EDT ----- Please notify ok Normal [facility] GC/CHLAMYDIA/TRICHOMONAS AMP LIFICATIONon 03-07-2021 GC/CHLAMYDIA/TRICHOMON AMPLIFICATION CHLAMYDIA AMPLIFICATION: Negative GC AMPLIFICATION: Negative TRICHOMONAS AMPLIFICATION: Negative Normal Negative [facility] Comment on above: Order Comment: This test is performed using an automated nucleic acid amplification assay ([employer] Performed By: #### G CT #### [facility] [address], [place] HEPATITIS C ANTIBODYon 03-07 HCV Non-Reactive Normal Nonreactive [facility] Comment on above: Performed By: #### H CV #### [facility] [address] [place] [address], HIV1 HIV2 AGAB SCRNon 2020 HIV AG-AB SCREEN Non-Reactive Normal Non-Reactive [facility] Comment on above: Order Comment: HIV Information: ???[place] Rev. code 3701.243(E): This information has been [...] agab scrn #### [facility] [address] [place], [place], HUMAN PAPILLOMA VIRUSon 02-09 HPV HIGH RISK Negative Normal Negative [facility] Comment on above: Order Comment: This test is performed using an automated nucleic acid amplification assay ([employer] [place], [place]). This assay detects RNA of HPV types 16,18,31,33,35,39,45,51,52,56,58,59,66 and 68 in cervical specimens. Result Comment: A ne gative result does not exclude the possibility of low levels of infection or sampling error. 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 No LMP recorded. Periods are regular [...] Intravenous Push route. * Cholecalciferol 1.25 MG (15227 UT) TABS Take 50,000 Units by mouth once weekly. * Litivukb-Khn-Ws-FA (Mynatal) CAPS Take by mouth. No current [...] no masses, non tender ASSESSMENT: Satisfactory annual clinical care manager exam PLAN: Dx: 1) Pap smear 2) (more content not included)... Normal [facility] [employer] Authentication Interface Message Text Patient at risk [...] bandage applied. Site appears normal. Normal [facility] Filter Paper Leadon 10-03- 20 Lead <2 Normal <5 [facility] Lead Interpretation Normal [facility] Comment on above: Result Comment: Occu pationally exposed adults lead >40 requires medical followup. This test was developed and its performance characteristics determined by [facility]. It has not been cleared or approved by the U.S. Food and Drug Administration. The FDA has determined that such clearance or approval is not necessary. This test is used for clinical purposes. It should not be regarded as investigational or for research. Type of Puncture Capillary Specimen Normal [facility] Vital Signs Date Time Vital Sign Value Performing Clinician Facility 08-25-2025 14:100400 Body height 167.6 cm Jahaira GRIGGS Work Phone: [facility] 08-25-2025 14:10-0400 Body mass index (BMI) [Ratio] 25.08 kg/m2 Jahaira GRIGGS Work Phone: [facility] 08-25-2025 14:10040 Body weight 70.49 kg Jahaira GRIGGS Work Phone: [facility] 08-25-2025 14:10-0400 Diastolic blood pressure 70 mm[Hg] Jahaira GRIGGS Work Phone: [facility] 08-25-2025 14:10-0400 Systolic blood pressure 112 mm[Hg] Jahaira GRIGGS Work Phone: [facility] 08-24-2025 16:47-0400 Body height 167.[address] MD Work Phone: [facility] 08-24-2025 16:47-0400 Body temperature 98.5 [degF] Janice Lane MD Work Phone: [facility] 08-24-2025 16:47-0400 Body weight 63.[address] MD Work Phone: [facility] 08-24-2025 16:47-0400 Diastolic blood pressure 76 mm[Hg] Janice Lane MD Work Phone: [facility] 08-24-2025 16:47-0400 Heart rate 78 /min Janice Lane MD Work Phone: [facility] 08-24-2025 16:47-0400 Respiratory rate 18 /min Janice Lane MD Work Phone: [facility] 08-24-2025 16:47-0400 SaO2% (BldA) [Mass fraction] 98 % Janice Lane MD Work Phone: [facility] 08-24-2025 16:47-0400 Systolic blood pressure 121 mm[Hg] Janice Lane MD Work Phone: [facility] 07-20-2025 12:02-0400 Body height 168.[address] MD Work Phone: [facility] 07-20-2025 12:02-0400 Body mass index (BMI) [Ratio] 24.57 kg/m2 Janice Lane MD Work Phone: [facility] 07-20-2025 12:02-0400 Body temperature 97.9 [degF] Janice Lane MD Work Phone: [facility] 07-20-2025 12:02-0400 Body weight 70.[address] MD Work Phone: [facility] 07-20-2025 12:02-0400 Diastolic blood pressure 86 mm[Hg] Janice Lane MD Work Phone: [facility] 07-20-2025 12:02-0400 Heart rate 96 /min Janice Lane MD Work Phone: [facility] 07-20-2025 12:02-0400 SaO2% (BldA) [Mass fraction] 100 % Janice Lane MD Work Phone: [facility] 07-20-2025 12:02-0400 Systolic blood pressure 127 mm[Hg] Janice Lane MD Work Phone: [facility] 07-14-2025 18:51-0400 Body temperature 98.49 [degF] Jeanie Crowley DO Work Phone: [facility] 07-14-2025 18:51-0400 Heart rate 100 /min Jeanie Crowley DO Work Phone: [facility] 07-14-2025 18:51-0400 SaO2% (BldA) [Mass fraction] 97 % Jeanie Crowley DO Work Phone: [facility] 04-11-2025 13:17-0400 Body mass index (BMI) [Ratio] 22.97 kg/m2 Jahaira Modesta PA Work Phone: [facility] 04-11-2025 13:17-0400 Body weight 65.55 kg Jahaira Byers PA Work Phone: [facility] 04-11-2025 13:17-0400 Diastolic blood pressure 80 mm[Hg] Jahaira Byers PA Work Phone: [facility] 04-11-2025 13:17-0400 Systolic blood pressure 100 mm[Hg] Jahaira Huertaey PA Work Phone: [facility] 03-23-2025 13:52-0400 Body mass index (BMI) [Ratio] 24.21 kg/m2 Estella Dutton RD [facility] 03-23-2025 13:52-0400 Body weight 68.[address] [facility] 03-17-2025 14:40-0400 Body temperature 98.29 [degF] Chair [employer] Work Phone: [facility] 03-17-2025 14:40-0400 Diastolic blood pressure 73 mm[Hg] Chair Kylah Work Phone: [facility] 03-17-2025 14:40-0400 Heart rate 83 /min Chair Kylah Work Phone: [facility] 03-17-2025 14:40-0400 Respiratory rate 16 /min Chair [place] Work Phone: [facility] 03-17-2025 14:40-0400 SaO2% (BldA) [Mass fraction] 100 % Chair Kylah Work Phone: [facility] 03-17-2025 14:40-0400 Systolic blood pressure 106 mm[Hg] Chair [place] Work Phone: [facility] 02-15-2025 19:46-0400 Body mass index (BMI) [Ratio] 21.78 kg/m2 William Salisbury DO Work Phone: [facility] 02-15-2025 19:46-0400 Body temperature 97.39 [degF] William Salisbury DO Work Phone: [facility] 02-15-2025 19:46-0400 Body weight 62.14 kg William Salisbury DO Work Phone: [facility] 02-15-2025 19:46-0400 Diastolic blood pressure 82 mm[Hg] William Salisbury DO Work Phone: [facility] 02-15-2025 19:46-0400 Heart rate 117 /min William Salisbury DO Work Phone: [facility] 02-15-2025 19:46-0400 SaO2% (BldA) [Mass fraction] 98 % William Salisbury DO Work Phone: [facility] 02-15-2025 19:46-0400 Systolic blood pressure 116 mm[Hg] William Salisbury DO Work Phone: [facility] 12-10-2024 16:24-0500 Body temperature 98.2 [degF] Summer Workman PA Work Phone: [facility] 12-10-2024 16:24-0500 Diastolic blood pressure 78 mm[Hg] Summer Workman PA Work Phone: [facility] 12-10-2024 16:24-0500 Systolic blood pressure 122 mm[Hg] Summer Workman PA Work Phone: [facility] 12-03-2024 16:34-0500 Body mass index (BMI) [Ratio] 21.78 kg/m2 Tor Neffbrook [employer] MARKETING EXECUTIVE Work Phone: [facility] 12-03-2024 16:34-0500 Body temperature 97.9 [degF] Tor Neffbrook PRODUCT MARKETING EXECUTIVE Work Phone: [facility] 12-03-2024 16:34-0500 Body weight 62.14 kg Tor Neffbrook PRODUCT MARKETING EXECUTIVE Work Phone: [facility] 12-03-2024 16:34-0500 Diastolic blood pressure 82 mm[Hg] Tor Dash PRODUCT MARKETING EXECUTIVE Work Phone: [facility] 12-03-2024 16:34-0500 Heart rate 91 /min Tor Dash PRODUCT MARKETING EXECUTIVE Work Phone: [facility] 12-03-2024 16:34-0500 SaO2% (BldA) [Mass fraction] 99 % Tor Dash PRODUCT MARKETING EXECUTIVE Work Phone: [facility] 12-03-2024 16:34-0500 Systolic blood pressure 126 mm[Hg] Tor Dash PRODUCT MARKETING EXECUTIVE Work Phone: [facility] 11-29-2024 09:51-0500 Body mass index (BMI) [Ratio] 21.91 kg/m2 Jahaira Hydes PA Work Phone: [facility] 11-29-2024 09:51-0500 Body weight 62.51 kg Jahaira Byres PA Work Phone: [facility] 11-29-2024 09:51-0500 Diastolic blood pressure 78 mm[Hg] Jahaira Hydes PA Work Phone: [facility] 11-29-2024 09:51-0500 Systolic blood pressure 110 mm[Hg] Jahaira Byers PA Work Phone: [facility] 10-12-2024 15:05-0500 Body mass index (BMI) [Ratio] 22.6 kg/m2 Clarke Mayte DO Work Phone: [facility] 10-12-2024 15:05-0500 Body weight 64.47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 Telephone encounter Shonda gilman PT Work Phone: [facility] Comment on above: Appointment Start: 07-23-2022 End: 07-23-2022 Subsequent hospital visit by physician Mri [facility] (1.5t) Work Phone: Radiology Comment on above: Multiple sclerosis ( HCC) [G35] Start: 07-22-2022 End: 07-22-2022 ambulatory Amina Vazquez CCC-PAYROLL ACCOUNTING MANAGER Work Phone: [facility] Speech Therapy Comment on above: Cognitive communicat ion deficit (Primary Dx) Abnormality of gait (Primary Dx); Multiple sclerosis (HCC) Multiple sclerosis ( HCC) (Primary Dx) Start: 06-28-2022 ambulatory Marshall Hanley MD, PhD Work Phone: [facility] Comment on above: Closer Neurologist & schedule mri Start: 06-21-2022 Telephone encounter Marshall hernandez MD, PhD Work Phone: [facility] Comment on above: Orders Start: 05-30-2022 End: 05-30-2022 ambulatory Wanda Graf PAYROLL ACCOUNTING MANAGER Work Phone: [facility] Speech Therapy Comment on above: Cognitive communicat ion deficit (Primary Dx); Multiple sclerosis (HCC) Start: 05-30-2022 End: 05-30-2022 Coordination of care plan Deuce Ryan OTR/L Work Phone: [facility] Occupational Therapy Comment on above: Abnormal antibody ti ter (Primary Dx); Multiple sclerosis (HCC); Neurogenic bladder; Lack of coordination Start: 04-25-2022 End: 04-25-2022 Patient encounter procedure Marshall Hanley MD, PhD Work Phone: [facility] Comment on above: Multiple sclerosis ( HCC) (Primary Dx); Vitamin D deficiency Start: 04-24-2022 Telephone encounter Marshall hernandez MD, PhD Work Phone: [facility] Comment on above: Patient Update Start: 04-02-2022 End: 04-02-2022 Emergency department patient visit DO Vishal Agarwal Work Phone: [facility]-Emergency Room Start: 03-26-2022 End: 03-26-2022 ambulatory Neur Frvw Infusion Work Phone: Neurology Comment on above: Multiple sclerosis ( HCC) (Primary Dx) Start: 03-04-2022 Telephone encounter Nidia anne MD Work Phone: Neurology Comment on above: Ocrevus Prior Auth Start: 03-07-2021 End: 03-07-2021 ambulatory UNKNOWN PROVIDER Facility:[facility] Start: 05-05-2019 End: 05-05-2019 Discharged Recurring STAFF NON [facility]-Infusion Therapy - O/P Procedures Date Procedure Procedure Detail Performing Clinician Start: 08-25-2025 RECURRENT VAGINITIS (HTRX) Jahaira GRIGGS Work Phone: Start: 07-14-2025 Iadna streptococcus group a amplified probe tq Jeanie Crowley DO Work Phone: Start: 07-14-2025 RAPID COVID 19 ANTIGEN Jeanie Crowley DO Work Phone: Start: 05-23-2025 End: 05-23-2025 Visual field xm uni/bi w/interp extended exam Sean Toney DO Work Phone: Start: 04-11-2025 IGP,APTIMA HPV,AGE GDLN Jahaira Byers PA Work Phone: Start: 03-17-2025 Blood count complete auto&auto difrntl wbc Tor Hernandez LUMBER PLANER.LIQUEFACTION PLANT OPERATOR Work Phone: Start: 03-17-2025 HEP REMOTE PANEL BL Surekha Hernandez LUMBER PLANER.LIQUEFACTION PLANT OPERATOR Work Phone: Start: 03-17-2025 Hepatitis c antibody Ra cesario Hernandez LUMBER PLANER.LIQUEFACTION PLANT OPERATOR Work Phone: Start: 03-17-2025 Iaad ia hepatitis b surface antigen Tor Hernandez LUMBER PLANER.LIQUEFACTION PLANT OPERATOR Work Phone: Start: 12-10-2024 Iadna streptococcus group a amplified probe tq Summer Sneha Anibal GRIGGS Work Phone: Start: 12-10-2024 STATUS COVID-19/FLU Sum cee M Anibal GRIGGS Work Phone: Start: 10-15-2024 ALL CBC WITH AUTO DIFF Clarke Hu DO Work Phone: Start: 10-14-2024 HMHP CBC WITH PLATEL ET NO DIFFERENTIAL Clarke Hu DO Work Phone: Start: 10-12-2024 Us uterus l imited 1/> fetuses Clarke April Hu DO Work Phone: Start: 10-12-2024 Urnls dip stick/tabl et rgnt non-auto w/o micrscp Clarke Hu DO Work Phone: Start: 10-05-2024 Us preg uterus real time f/u trnsabdl per fetus Clarke April Hu DO Work Phone: Start: 10-04-2024 Urnls dip stick/tabl et rgnt non-auto w/o micrscp Jahaira GRIGGS Work Phone: Start: 09-27-2024 Urnls dip stick/tabl et rgnt non-auto w/o micrscp Clarke Mayte DO Work Phone: Start: 09-21-2024 Urnls dip stick/tabl et rgnt non-auto w/o micrscp Clarke Mayte DO Work Phone: Start: 09-07-2024 Urnls dip stick/tabl et rgnt non-auto w/o micrscp Jahaira GRIGGS Work Phone: Start: 08-24-2024 Urnls dip stick/tabl et rgnt non-auto w/o micrscp Jahaira GRIGGS Work Phone: Start: 08-17-2024 Urnls dip stick/tabl et rgnt auto w/o microscopy Janice Escobar MD Work Phone: Start: 08-17-2024 Us preg uterus real time f/u trnsabdl per fetus Clarke Naiko DO Work Phone: Start: 08-10-2024 Urnls dip stick/tabl et rgnt non-auto w/o micrscp Clarke Mayte DO Work Phone: Start: 07-27-2024 Urnls dip stick/tabl et rgnt non-auto w/o micrscp Clarke Mayte DO Work Phone: Start: 07-19-2024 STATUS COVID-19/FLU Mary dsay N Morgan PRODUCT MARKETING EXECUTIVE Work Phone: Start: 07-19-2024 Adult depression scr eening assessment Kenzie Mccall [facility] Start: 07-17-2024 GLUCOSE 1 HOUR Clakre Fa zio DO Work Phone: Start: 07-13-2024 Urnls dip stick/tabl et rgnt non-auto w/o micrscp Clarke Mayte DO Work Phone: Start: 07-02-2024 Us uterus l imited 1/> fetuses Clarke Hu DO Work Phone: Start: 03-17-[address] Work Phone: Start: 03-17-2024 Ultrasonography of b ilateral breasts MD Janice Lane Work Phone: Start: 03-04-2024 End: 03-04-2024 Radex spine cervical 4 or [address] MD Work Phone: Start: 01-19-2024 Mri spinal canal tho racic w/o & w/contr matrl Tor Hernandez LUMBER PLANER.LIQUEFACTION PLANT OPERATOR Work Phone: Start: 12-23-2023 Urine test visual color cmprsn meths Gael Howard DO Work Phone: Start: 12-23-2023 STATUS COVID-19/FLU Ant lucien Howard DO Work Phone: Start: 09-25-2023 Blood count complete auto&auto difrntl wbc Tor Hernandez LUMBER PLANER.LIQUEFACTION PLANT OPERATOR Work Phone: Start: 09-25-2023 HEP REMOTE PANEL BL Zack Hanley MD, PhD Work Phone: Start: 09-25-2023 Hepatitis c antibody Zoltan Hanlye MD, PhD Work Phone: Start: 09-25-2023 Iaad ia hepatitis b surface antigen Marshall Hanley MD, PhD Work Phone: Start: 08-26-2023 Us pelvic nonobstetr ic real-time image complete Janice Lane MD Work Phone: Start: 01-02-2023 BRAIN & CERVICAL SPI NE MRI DISCRETE DATA [facility] Provider Start: 01-02-2023 Mri brain brain stem w/o w/contrast material Nesha Williamson MD Work Phone: Start: 09-27-2022 HEP REMOTE PANEL BL Mary Williamson MD Work Phone: Start: 09-27-2022 Hepatitis c antibody Li dequan Williamson MD Work Phone: Start: 09-27-2022 Iaad ia hepatitis b surface antigen Nesha Williamson MD Work Phone: Start: 07-23-2022 Mri spinal canal cer vical w/o & w/contr matrl Olive Cohen PA-C Work Phone: Start: 04-02-2022 Plain X-ray of right humerus DO Vishal Agarwal Work Phone: Start: 04-02-2022 Radiography of thoracic spine DO Vishal Agarwal Work Phone: Start: 04-02-2022 End: 04-02-2022 Mycology culture DO Vishal Agarwal Work Phone: Start: 04-02-2022 End: 04-02-2022 Trichomonas vaginalis detection DO Vishal Agarwal Work Phone: Start: 03-07-2021 Microscopic observat ion [Identifier] in Cervix by Cyto stain Mac 2 Start: 02-08-2021 Adult depression scr eening assessment Nidia Garcia MD Work Phone: Start: 01-03-2021 Follow-up visit Start: 07-05-2020 Follow-up visit Start: 01-12-2020 Echocardiography Start: 01-05-2020 Echocardiography Karri Jones SARS-CoV-2, Influenz a & RSV (PCR) MD Janice Lane Work Phone: Plan of Treatment Date Care Activity Detail Author Start: 2060 RSV Vaccine (1 - 1-d ose 75+ series) RSV Vaccine (1 - 1-dose 75+ series) [facility] Start: 2035 Zoster Vaccines (1 of 2) Zoste r Vaccines (1 of 2) [facility] Start: 01-16-2032 DTaP/Tdap/Td Vaccine s (2 - Td or Tdap) DTaP/Tdap/Td Vaccines (2 - Td or Tdap) [facility] Start: 01-16-2032 Urine microalbumin profile [facility] Start: 04-17-2026 End: 04-17-2026 Patient encounter procedure [facility] Start: 03-07-2026 PAP TESTING PAP TESTING [facility] Start: 03-07-2026 Screening for malign ant neoplasm of cervix [facility] Start: 09-30-2025 End: 09-30-2025 ambulatory 09/30/2025 9:00 AM [facility] Hematology/Oncology [address] [place] [address] [facility] Hematology/Oncology Comment on above: [facility] Start: 09-15-2025 End: 09-15-2025 ambulatory 09/15/2025 9:00 AM [facility] Hematology/Oncology [address] [place] [address] [facility] Comment on above: [facility] Start: 07-20-2025 End: 07-20-2025 Patient encounter procedure 07/20/2025 12:00 PM EDT Office Visit [facility] [address] [place] [address] MD [address] [place] [address] physical [facility] Comment on above: physical Start: 07-19-2025 Anxiety Screening Anxiety Screening [facility] Start: 07-19-2025 Depression Screening Depression Scre ening [facility] Start: 07-14-2025 End: 07-14-2025 Patient encounter procedure 07/14/2025 6:45 PM EDT Office Visit [facility] [address] [place] [phone] Jeanie Crowley DO [address] [place] [address] Arrived [facility] Comment on above: Arrived Start: 07-11-2025 Influenza vaccination [facility] Start: 05-23-2025 End: 05-23-2025 Patient encounter procedure 05/23/2025 1:30 PM EDT Office Visit [facility] [address] [address] Sean Tnoey, DO [address] [place], [place] [id number] optic neuritis and MS Ophthalmology Comment on above: optic neuritis and M S Start: 04-25-2025 End: 04-25-2025 Patient encounter procedure 04/25/2025 2:45 PM EDT Office Visit [facility] [address] [place] [id number] Nell Sloan, [address] [place] [address] [facility] Start: 04-11-2025 End: 04-11-2025 Patient encounter procedure 04/11/2025 1:00 PM EDT Office Visit [facility] [address] [place] [address] Jahaira Byers PA [address] [place] [address] [facility] Start: 04-05-2025 End: 04-05-2025 Specialty Pharmacy 04/05/2025 11:00 AM EDT Specialty Pharmacy [facility] [address] [place] [id number] Pharmacist, [address] [place] [address] refill - glatiramer MWF-- [facility] Comment on above: refill - glatiramer MWF-- Start: 04-01-2025 End: 04-01-2025 ambulatory 04/01/2025 9:00 AM EDT Infusion Center Hematology/Oncology [address] [place] [address] [place] [address] [facility] H[facility] Comment on above: [facility] Start: 03-23-2025 End: 03-23-2025 Nutrition therapy 03/23/2025 1:45 PM EDT Education Nutrition Therapy [address] [place] [address] Ensure shake. Is it higher in protein than others. Nutrition Therapy Comment on above: Ensure shake. Is it higher in protein than others. Start: 03-17-2025 End: 06-16-2025 Choriogonadotropin ( test) [Presence] in Urine HCG, QUALITATIVE, URINE Lab STAT Multiple sclerosis (HCC) Expected: 03/17/2025, Expires: 06/16/2025 [facility] Work Phone: Comment on above: Expected: 03/17/2025 , Expires: 06/16/2025 Start: 03-17-2025 End: 03-17-2025 ambulatory 03/17/2025 9:00 AM EDT [facility] Hematology/Oncology [address] [place] [address] [place] [address] [facility] Hematology/Oncology Comment on above: [facility] Start: 03-12-2025 End: 03-12-2025 Patient encounter procedure 03/12/2025 11:30 AM EDT Appointment Radiology [address] [place] [address] Radiology Start: 03-11-2025 End: 06-10-2025 Thyrotropin [Units/volume] in Serum or Plasma THYROID STIMULATING HORMONE Lab Routine Multiple sclerosis (HCC) Other specified hypothyroidism Expected: 03/11/2025, Expires: 06/10/2025 [facility] Work Phone: Comment on above: Expected: 03/11/2025 , Expires: 06/10/2025 Start: 03-11-2025 End: 06-10-2025 Thyroxine (T4) free [Mass/volume] in Serum or Plasma T4 FREE/FREE THYROXINE Lab Routine Multiple sclerosis (HCC) Other specified hypothyroidism Expected: 03/11/2025, Expires: 06/10/2025 [facility] Comment on above: Expected: 03/11/2025 , Expires: 06/10/2025 Start: 03-11-2025 End: 08-01-2025 Triiodothyronine (T3) [Mass/volume] in Serum or Plasma T3 Lab Routine Multiple sclerosis (HCC) Other specified hypothyroidism Expected: 03/11/2025, Expires: 06/10/2025 [facility] Comment on above: Expected: 03/11/2025 , Expires: 06/10/2025 Start: 03-11-2025 End: 03-11-2025 Follow-up encounter [facility] Comment on above: follow up refill - glatiramer MWF--lvm 03/08 Start: 03-08-2025 End: 03-08-2025 Specialty Pharmacy 03/08/2025 11:00 AM EDT Specialty Pharmacy [facility] [address] [place], [place] [id number] Pharmacist, Specialtygroup3 [address] [place] [address] [place] [address] refill - glatiramer MWF [facility] Comment on above: refill - glatiramer MWF Start: 02-13-2025 End: 02-13-2025 Patient encounter procedure 02/13/2025 11:45 AM EDT Appointment [facility] [address] [place] [id number] MRI BRAIN WO/W IVCON [facility] Comment on above: MRI BRAIN WO/W IVCON Start: 02-12-2025 [facility] Start: 02-08-2025 End: 02-08-2025 Specialty Pharmacy 02/08/2025 11:00 AM EDT Specialty Pharmacy [facility] [address] [place] [id number] Pharmacist, [facility] [address] [place] [address] [place] [address] refill - glatiramer MWF [facility] Comment on above: refill - glatiramer MWF Start: 02-03-2025 End: 05-05-2025 BLOOD TB SCREEN BLOOD TB SCREEN Lab Routine Multiple sclerosis (HCC) 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) Expected: 02/03/2025 (Approximate), Expires: 05/05/2025 [facility] Comment on above: Expected: 02/03/2025 (Approximate), Expires: 05/05/2025 Start: 02-03-2025 End: 05-05-2025 CBC W Auto Differential panel - Blood COMPLETE BLOOD COUNT AND DIFFERENTIAL Lab Routine Multiple sclerosis (HCC) 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) Expected: 02/03/2025, Expires: 05/05/2025 [facility] Work Phone: Comment on above: Expected: 02/03/2025 , Expires: 05/05/2025 Start: 02-03-2025 End: 05-05-2025 Chronic hepatitis differentiation between hepatitis B and C virus panel - Serum or Plasma HEP REMOTE PANEL BL Lab Routine Multiple sclerosis (HCC) 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) Expected: 02/03/2025, Expires: 05/05/2025 [facility] Comment on above: Expected: 02/03/2025 , Expires: 05/05/2025 Start: 02-03-2025 End: 05-05-2025 Comprehensive metabolic 2000 panel - Serum or Plasma COMPREHENSIVE METABOLIC PANEL Lab Routine Multiple sclerosis (HCC) 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) Expected: 02/03/2025, Expires: 05/05/2025 [facility] Comment on above: Expected: 02/03/2025 , Expires: 05/05/2025 Start: 02-03-2025 End: 05-05-2025 IgG [Mass/volume] in Serum or Plasma IMMUNOGLOBULIN G Lab Routine Multiple sclerosis ([facility]) 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) Expected: 02/03/2025, Expires: 05/05/2025 [facility] Comment on above: Expected: 02/03/2025 , Expires: 05/05/2025 Start: 02-03-2025 End: 05-05-2025 IgM [Mass/volume] in Serum or Plasma IMMUNOGLOBULIN M Lab Routine Multiple sclerosis ([facility]) 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) Expected: 02/03/2025, Expires: 05/05/2025 [facility] Comment on above: Expected: 02/03/2025 , Expires: 05/05/2025 Start: 02-03-2025 End: 05-05-2025 VARICELLA ZOSTER IGG VARICELLA ZOSTER IGG Lab Routine Multiple sclerosis (HCC) 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) Expected: 02/03/2025, Expires: 05/05/2025 [facility] Comment on above: Expected: 02/03/2025 , Expires: 05/05/2025 Start: 02-03-2025 End: 02-03-2025 Follow-up encounter 02/03/2025 9:30 AM EDT [facility] [address] [place] [address] Tor Hernandez APRN.LIQUEFACTION PLANT OPERATOR [address] [place] [address] follow up [facility] Comment on above: follow up Start: 01-11-2025 End: 01-11-2025 Specialty Pharmacy 01/11/2025 11:00 AM EST Specialty Pharmacy [facility] [address] [place] [address] [id number] [place] [address] Pharmacist, [facility] [address] [place] [address] [place] [address] refill - glatiramer [facility] Comment on above: refill - glatiramer Start: 11-25-2024 End: 11-25-2024 ambulatory 11/25/2024 8:30 AM EST Visit [facility] [address] [place] [address] Jahaira Byers PA [address] [address] [place] [address] [facility] Start: 11-18-2024 End: 11-18-2024 Patient encounter procedure [facility] Comment on above: Return in about 6 mo nths (around 11/2024). refill - glatiramer -lvm 11/15 Start: 11-10-2024 Medicare Advantage A nnual Wellness Visit Medicare Advantage Annual Wellness Visit [facility] Start: 10-26-2024 End: 10-26-2024 ambulatory 10/26/2024 11:00 AM EST [facility] [address] [place] [address] Mercy Urbina MD [address] [place] [address] RLS (restless legs syndrome) Neurology Comment on above: RLS (restless legs s yndrome) Start: 10-21-2024 End: 10-21-2024 Patient encounter procedure [facility] Comment on above: refill - glatiramer --lvm 09/20 Start: 10-18-2024 End: 10-18-2024 Specialty Pharmacy [facility] Comment on above: refill - glatiramer --lvm 09/20 Start: 10-12-2024 End: 10-12-2024 Patient encounter procedure 10/12/2024 2:50 PM EST Routine [facility] [address] [place] [phone] Clarke Hu, [address] [place] [address] Arrived [facility] Comment on above: Arrived Start: 10-12-2024 End: 10-12-[address] [facility] Start: 10-11-2024 End: 10-11-2024 ambulatory 10/11/2024 10:45 AM EST OT/PT/Speech Visit [facility] [address] [facility] [place] [address] Estrella Sorto, PT, DPT [address] [place] [address] 3 of 4 visits approved [facility] Comment on above: 3 of 4 visits approv ed Start: 10-05-2024 End: 10-05-2024 Patient encounter procedure 10/05/2024 2:30 PM EST Appointment [facility] [address] [facility] [address] [place] [id number] [facility] [address] Start: 10-04-2024 End: 10-04-2025 Strep B DNA probe, amplification Strep B DNA probe, amplification Lab Routine Third trimester Expected: 10/04/2024 (Approximate), Expires: 10/04/2025 [facility] Work Phone: Comment on above: Expected: 10/04/2024 (Approximate), Expires: 10/04/2025 Start: 10-04-2024 End: 10-04-2024 Patient encounter procedure 10/04/2024 1:40 PM EST Routine [facility] [address] [place] [address] Jahaira Byers PA [address] [place] [address] [facility] Start: 10-04-2024 End: 10-04-2024 Professional / ancillary services management 10/04/2024 1:00 PM EST Ancillary Procedure [facility] [address] [place] [address] [facility] Start: 10-04-2024 End: 10-04-2024 ambulatory 10/04/2024 9:15 AM EST OT/PT/Speech Visit [facility] [address] [place] [address] Estrella Sorto, PT, DPT [address] [place] [address] 2 of 4 visits approved [facility] Comment on above: 2 of 4 visits approv ed Start: 10-04-2024 End: 10-04-2024 Patient encounter procedure 10/04/2024 9:15 AM EST OT/PT/Speech Visit [facility] [address] [place] [address] Estrella Sorto, PT, DPT [address] [place] [address] hip pain and ms consult missed 08/23/24 [facility] Comment on above: hip pain and ms cons ult missed 08/23/24 Start: 09-27-2024 End: 09-27-2024 Patient encounter procedure 09/27/2024 2:30 PM EST Routine [facility] [address] [place] [address] Clarke Hu, DO [address] [place] [address] Arrived [facility] Comment on above: Arrived Start: 09-22-2024 End: 09-22-2024 Nutrition therapy 09/22/2024 8:45 AM EST [facility] [address] [facility] [id number] [address] Protein shakes covered with my ins & best flavor. Nutrition Therapy Comment on above: Protein shakes cover ed with my ins & best flavor. Start: 09-21-2024 End: 09-21-2025 US biophysical profile w non stress test US biophysical profile w non stress test Imaging Routine MS (multiple sclerosis) (CMS/HCC) Short cervix affecting Expected: 09/21/2024 (Approximate), Expires: 09/21/2025 [facility] Comment on above: Expected: 09/21/2024 (Approximate), Expires: 09/21/2025 Start: 09-21-2024 End: 09-21-2025 US for US OB SCAN FOR GROWTH Imaging Routine MS (multiple sclerosis) (CMS/HCC) Short cervix affecting Expected: 09/21/2024 (Approximate), Expires: 09/21/2025 [facility] Work Phone: Comment on above: Expected: 09/21/2024 (Approximate), Expires: 09/21/2025 Start: 09-21-2024 End: 09-21-2024 ambulatory 09/21/2024 9:45 AM EST OT/PT/Speech Visit [facility] [address] [facility] [place], [place] [id number] Estrella Sorto, PT, DPT [address] [facility] [place] [address] 1 of 4 visits approved [facility] Comment on above: 1 of 4 visits approv ed Start: 09-21-2024 End: 09-21-2024 Patient encounter procedure 09/21/2024 9:45 AM EST OT/PT/Speech Visit [facility] [address] [facility] [place] [address] Estrella Sorto, PT, DPT [address] [facility] [place] [address] hip pain and ms consult missed 08/23/24 [facility] Comment on above: hip pain and ms cons ult missed 08/23/24 Start: 09-20-2024 End: 09-20-2024 Specialty Pharmacy 09/20/2024 11:00 AM EST Specialty Pharmacy [facility] [address] [place], [place] [id number]-[id number] [place] [address] Pharmacist, [facility]ty[facility] [address] [place] [id number] refill - glatiramer -- [facility] Comment on above: refill - glatiramer -- Start: 09-14-2024 End: 09-14-2024 Patient encounter procedure 09/14/2024 2:[address] [facility] [address] [facility] [place] [address] [facility] Start: 09-07-2024 End: 09-07-2025 US [...] procedure 09/03/2024 8:45 AM EDT OT/PT/Speech Visit [facility] [address] [facility] [place] [address] Estrella Sorto, PT, DPT [address] [place] [address] hip pain and ms consult missed 08/23/24 [facility] Comment on above: hip pain and ms cons ult missed 08/23/24 Start: 09-01-2024 RSV High Risk: (Elde rly (60+) or Population) (1 - Risk 1-dose series) RSV High Risk: (Elderly (60+) or Population) (1 - Risk 1-dose series) [facility] Start: 09-01-2024 RSV Vaccine (1 - Ris k 1-dose series) RSV Vaccine (1 - Risk 1-dose series) [facility] Start: 08-30-2024 End: 08-30-2024 Patient encounter procedure 08/30/2024 3:00 PM EDT Office Visit [facility] [address] [place] [address] Art Swenson S, OD [address] [facility] [place] [address] Huge eye buggar.Eyes get tired.Eye lashes fallout Ophthalmology Comment on above: Huge eye buggar.Eyes get tired.Eye lashes fallout Start: 08-24-2024 End: 08-24-2024 Patient encounter procedure 08/24/2024 9:40 AM EDT Routine [facility] [address] [place] [phone] Jahaira Byers PA [address] [place] [address] [facility] Start: 08-24-2024 End: 08-24-2024 Professional / ancillary services management 08/24/2024 9:00 AM EDT Ancillary Procedure [facility] [address] [place] [phone] [facility] Start: 08-23-2024 End: 08-23-2024 ambulatory 08/23/2024 11:30 AM EDT OT/PT/Speech Visit [facility] [address] [facility] [place], [place] [phone] Leonel Bhagat, PT [address] [place] [address] Right hip pain [M25.551] [facility] Comment on above: Right hip pain [M25. 551] Start: 08-17-2024 End: 08-17-2024 Patient encounter procedure 08/17/2024 2:30 PM EDT Appointment [facility] [address] [facility] [address] [place] [address] [facility] Start: 08-16-2024 End: 08-16-2024 Specialty Pharmacy 08/16/2024 11:00 AM EDT Specialty Pharmacy [facility] [address] [place] [id number] Pharmacist, [address] [address] refill - glatiramer -- [facility] Comment on above: refill - glatiramer -- Start: 08-10-2024 End: 08-10-2024 Patient encounter procedure 08/10/2024 10:20 AM EDT Routine [facility] [address] [place] [phone] Clarke Hu, [address] [place], [place] [phone] [facility] Start: 08-10-2024 End: 08-10-2024 Professional / ancillary services management 08/10/2024 9:00 AM EDT Ancillary Procedure [facility] [address] [facility] [address] [facility] Start: 07-27-2024 End: 07-27-2024 Patient encounter procedure [facility] Comment on above: Arrived Start: 07-27-2024 End: 07-27-2024 Professional / ancillary services management 07/27/2024 9:00 AM EDT Ancillary Procedure [facility] [address] [place] [address] [facility] Start: 07-20-2024 End: 07-20-2024 Follow-up encounter 07/20/2024 11:00 AM EDT [facility] [address] [place] [address] Mercy Urbina MD [address] [place] [address] Follow up Neurology Comment on above: Follow up Start: 07-19-2024 End: 10-18-2024 CBC W Auto Differential panel - Blood [facility] Comment on above: Expected: 07/19/2024 , Expires: 10/18/2024 Start: 07-19-2024 End: 10-18-2024 Comprehensive metabolic 2000 panel - Serum or Plasma [facility] Comment on above: Expected: 07/19/2024 , Expires: 10/18/2024 Start: 07-19-2024 End: 10-18-2024 Ferritin [Mass/volume] in Serum or Plasma [facility] Comment on above: Expected: 07/19/2024 , Expires: 10/18/2024 Start: 07-19-2024 End: 07-19-2024 Patient encounter procedure [facility] Comment on above: 1 year physical refill - glatiramer -- Start: 07-13-2024 End: 07-13-2025 CBC panel - Blood by Automated count CBC Lab Routine Diabetes mellitus screening Expected: 07/13/2024 (Approximate), Expires: 07/13/2025 [facility] Work Phone: Comment on above: Expected: 07/13/2024 (Approximate), Expires: 07/13/2025 Start: 07-13-2024 End: 07-13-2025 Measurement of glucose 1 hour after glucose challenge for glucose tolerance test Glucose tolerance, 1 hour Lab Routine Diabetes mellitus screening Expected: 07/13/2024 (Approximate), Expires: 07/13/2025 [facility] Comment on above: Expected: 07/13/2024 (Approximate), Expires: 07/13/2025 Start: 07-13-2024 End: 07-13-2025 US Pelvis transvaginal US OB transvaginal Imaging Routine Encounter for screening for cervical length Expected: 07/13/2024 (Approximate), Expires: 07/13/2025 [facility] Comment on above: Expected: 07/13/2024 (Approximate), Expires: 07/13/2025 Start: 07-11-2024 Covid-19 Vaccine ( season) Covid-19 Vaccine () [facility] Start: 07-11-2024 Covid-19 Vaccine () Covid-19 Vaccine () [facility] Start: 07-11-2024 Influenza vaccination Influenza Vacc ine (#1) [facility] Start: 07-01-2024 End: 07-01-2024 Patient encounter procedure [facility] Comment on above: Return in about 6 mo nths (around 06/24/2024). Snoring [R06.83] Start: 06-25-2024 End: 06-25-2024 Specialty Pharmacy 06/25/2024 11:00 AM EDT Specialty Pharmacy [facility] [address] [place], [place] [id number]-[id number] [place] [address] Pharmacist, Special[facility] [address] [place] [address] refill - glatiramer -- lvm 06/22 [facility] Comment on above: refill - glatiramer -- lvm 06/22 Start: 06-23-2024 End: 06-23-2024 Patient encounter procedure 06/23/2024 8:00 AM EDT Office Visit Neurology [address] [place] [address] ACTIGRAPHY Neurology Comment on above: ACTIGRAPHY Start: 06-22-2024 End: 06-22-2024 Specialty Pharmacy 06/22/2024 11:00 AM EDT Specialty Pharmacy [facility] [address] [place], [place] [id number] [address] Pharmacist, [facility] [address] [place] [address] [place] [address] refill - glatiramer -- [facility] Comment on above: refill - glatiramer -- Start: 06-08-2024 End: 06-08-2024 ambulatory 06/08/2024 1:00 PM EDT [facility] Neurology [address] [facility] [place] [address] Mercy Urbina MD [address] [place] [address] INSOMNIA Neurology Comment on above: INSOMNIA Start: 06-08-2024 End: 06-08-2024 Patient encounter procedure 06/08/2024 1:00 PM EDT Office Visit Neurology [address] [place] [address] Mercy Urbina MD [address] [place] [address] INSOMNIA Neurology Comment on above: INSOMNIA Start: 05-25-2024 End: 05-25-2024 Patient encounter procedure 05/25/2024 8:00 AM EDT Office Visit Neurology [address] [place] [address] ACTIGRAPHY Neurology Comment on above: ACTIGRAPHY Start: 05-24-2024 End: 05-24-2024 Specialty Pharmacy 05/24/2024 11:00 AM EDT Specialty Pharmacy [facility] [address] [place] [address] Pharmacist, [facility] [address] [place] [address] [place] [address] refill - glatiramer -- [facility] Comment on above: refill - glatiramer -- Start: 05-19-2024 End: 05-19-2024 Patient encounter procedure 05/19/2024 10:00 AM EDT Office Visit [facility] [address] [place] [address] Clarke Hu DO [address] [facility] [place] [address] [facility] Start: 04-30-2024 End: 04-30-2024 Specialty Pharmacy 04/30/2024 11:00 AM EDT Specialty Pharmacy [facility] [place] [id number] Pharmacist, Specialty[address] [place] [address] refill--glatiramer [facility] Comment on above: refill--glatiramer Start: 04-21-2024 End: 04-21-2024 Patient encounter procedure 04/21/2024 8:00 AM EDT Office Visit Neurology [address] [place] [address] ACTIGRAPHY Neurology Comment on above: ACTIGRAPHY Start: 03-30-2024 End: 03-30-2024 ambulatory 03/30/2024 1:45 PM EDT [address] [address] Tor Hernandez APRN.LIQUEFACTION PLANT OPERATOR [address] [place] [address] What medicine to take during or off of [facility] Comment on above: What medicine to raúl e during or off of Start: 03-26-2024 End: 03-26-2024 ambulatory 03/26/2024 9:40 AM EDT Infusion Center Hematology/Oncology [address] [place] [address] Kylah, Chair [address] [place] [address] [facility] Comment on above: [facility] Start: 03-22-2024 End: 03-22-2024 ambulatory 03/22/2024 2:30 PM EDT [facility] Neurology [address] [place] [address] Mickie Medrano APRN.LIQUEFACTION PLANT OPERATOR [address] [place] [address] F/U Neurology Comment on above: F/U Start: 03-08-2024 End: 03-08-2024 Patient encounter procedure 03/08/2024 8:00 AM EDT Office Visit Neurology [address] [place] [address] ACTIGRAPHY Neurology Comment on above: ACTIGRAPHY Start: 03-07-2024 Screening for malign ant neoplasm of cervix [facility] Start: 03-04-2024 End: 06-03-2024 JOSSELIN BY IFA WITH REFLEX [facility] Comment on above: Expected: 03/04/2024 , Expires: 06/03/2024 Start: 03-04-2024 End: 06-03-2024 C reactive protein [Mass/volume] in Serum or Plasma [facility] Comment on above: Expected: 03/04/2024 , Expires: 06/03/2024 Start: 03-04-2024 End: 06-03-2024 Ferritin [Mass/volume] in Serum or Plasma [facility] Comment on above: Expected: 03/04/2024 , Expires: 06/03/2024 Start: 03-04-2024 End: 06-03-2024 Iron and Iron binding capacity panel - Serum or Plasma [facility] Comment on above: Expected: 03/04/2024 , Expires: 06/03/2024 Start: 03-04-2024 End: 06-03-2024 Rheumatoid factor [Units/volume] in Serum or Plasma [facility] Comment on above: Expected: 03/04/2024 , Expires: 06/03/2024 Start: 03-04-2024 End: 06-03-2024 Urate [Mass/volume] in Serum or Plasma [facility] Comment on above: Expected: 03/04/2024 , Expires: 06/03/2024 Start: 02-24-2024 [facility] Start: 12-11-2023 End: 08-21-2024 Mri brain brain stem w/o w/contrast material MRI BRAIN WO/W IVCON Radiology Routine Multiple sclerosis (HCC) Expected: 12/11/2023 (Approximate), Expires: 08/21/2024 [facility] Work Phone: Comment on above: Expected: 12/11/2023 (Approximate), Expires: 08/21/2024 Start: 11-10-2023 Behavioral Health Screening Behavioral Health Screening [facility] Start: 11-10-2023 Depression Assessment Depression Ass essment [facility] Start: 10-25-2023 End: 01-24-2024 CBC W Auto Differential panel - Blood CBC + DIFF Lab Routine Other drug-induced neutropenia (HCC) Expected: 10/25/2023 (Approximate), Expires: 01/24/2024 [facility] Work Phone: Comment on above: Expected: 10/25/2023 (Approximate), Expires: 01/24/2024 Start: 09-25-2023 End: 12-25-2023 CD19 ABSOLUTE COUNT [facility] Work Phone: Comment on above: Expected: 09/25/2023 , Expires: 12/25/2023 Start: 09-23-2023 End: 12-23-2023 Choriogonadotropin.beta subunit [Units/volume] in Serum or Plasma HCG QUANTITATIVE Lab Routine Multiple sclerosis (HCC) Expected: 09/23/2023, Expires: 12/23/2023 [facility] Work Phone: Comment on above: Expected: 09/23/2023 , Expires: 12/23/2023 Start: 09-23-2023 End: 12-23-2023 IgG [Mass/volume] in Serum or Plasma IGG Lab Routine Multiple sclerosis ([facility]) Expected: 09/23/2023, Expires: 12/23/2023 [facility] Work Phone: Comment on above: Expected: 09/23/2023 , Expires: 12/23/2023 Start: 09-23-2023 End: 12-23-2023 IgM [Mass/volume] in Serum or Plasma IGM Lab Routine Multiple sclerosis (HCC) Expected: 09/23/2023, Expires: 12/23/2023 [facility] Work Phone: Comment on above: Expected: 09/23/2023 , Expires: 12/23/2023 Start: 07-11-2023 Covid-19 Vaccine () Covid-19 Vaccine () [facility] Start: 07-11-2023 Influenza vaccination [facility] Start: 02-12-2023 End: 04-14-2023 CBC W Auto Differential panel - Blood [facility] Work Phone: Comment on above: Expected: 02/12/2023 , Expires: 04/14/2023 Start: 02-12-2023 End: 04-14-2023 Ferritin [Mass/volume] in Serum or Plasma [facility] Work Phone: Comment on above: Expected: 02/12/2023 , Expires: 04/14/2023 Start: 02-12-2023 End: 02-26-2023 Influenza virus A and B RNA and SARS-CoV-2 (COVID-19) N gene panel - Respiratory specimen by DEIRDRE with probe detection [facility] Work Phone: Comment on above: Expected: 02/12/2023 , Expires: 02/26/2023 Start: 02-12-2023 End: 04-14-2023 Iron and Iron binding capacity panel - Serum or Plasma [facility] Work Phone: Comment on above: Expected: 02/12/2023 , Expires: 04/14/2023 Start: 02-12-2023 End: 02-13-2024 PELVIC US WHI PELVIC US WHI Anc Imaging Routine Vaginal bleeding Expected: 02/12/2023, Expires: 02/13/2024 [facility] Work Phone: Comment on above: Expected: 02/12/2023 , Expires: 02/13/2024 Start: 02-05-2023 End: 12-07-2023 Mri brain brain stem w/o w/contrast material MRI BRAIN WO/W IVCON Radiology Routine Multiple sclerosis (HCC) Expected: 02/05/2023 (Approximate), Expires: 12/07/2023 [facility] Work Phone: Comment on above: Expected: 02/05/2023 (Approximate), Expires: 12/07/2023 Start: 02-05-2023 End: 12-07-2023 Mri spinal canal cervical w/o & w/contr matrl MRI CERVICAL SPINE WO/W IVCON Radiology Routine Multiple sclerosis (HCC) Expected: 02/05/2023 (Approximate), Expires: 12/07/2023 [facility] Work Phone: Comment on above: Expected: 02/05/2023 (Approximate), Expires: 12/07/2023 Start: 01-17-2023 End: 03-19-2023 25-hydroxyvitamin D3 [Mass/volume] in Serum or Plasma [facility] Work Phone: Comment on above: Expected: 01/17/2023 , Expires: 03/19/2023 Start: 01-17-2023 End: 03-19-2023 Cobalamin (Vitamin B12) [Mass/volume] in Serum or Plasma [facility] Work Phone: Comment on above: Expected: 01/17/2023 , Expires: 03/19/2023 Start: 01-17-2023 End: 03-19-2023 IgG [Mass/volume] in Serum or Plasma [facility] Work Phone: Comment on above: Expected: 01/17/2023 , Expires: 03/19/2023 Start: 01-17-2023 End: 03-19-2023 IgM [Mass/volume] in Serum or Plasma [facility] Work Phone: Comment on above: Expected: 01/17/2023 , Expires: 03/19/2023 Start: 01-17-2023 End: 03-19-2023 Thyrotropin [Units/volume] in Serum or Plasma [facility] Work Phone: Comment on above: Expected: 01/17/2023 , Expires: 03/19/2023 Start: 11-10-2022 DEPRESSION ASSESSMENT DEPRESSION ASS ESSMENT [facility] Start: 10-27-2022 Plain chest X-ray XR chest 1V portab [facility] Start: 10-27-2022 XR Chest Single view [facility] Start: 07-11-2022 Influenza vaccination C [facility] Start: 04-25-2022 End: 06-25-2022 Bacteria identified in Urine by Culture [facility] Work Phone: Comment on above: Expected: 04/25/2022 , Expires: 06/25/2022 Start: 04-24-2022 End: 06-24-2022 25-hydroxyvitamin D3 [Mass/volume] in Serum or Plasma VITAMIN D 25 HYDROXY Lab Routine Vitamin D deficiency Expected: 04/24/2022, Expires: 06/24/2022 [facility] Work Phone: Comment on above: Expected: 04/24/2022 , Expires: 06/24/2022 Start: 04-24-2022 End: 06-24-2022 Comprehensive metabolic 2000 panel - Serum or Plasma COMP METABOLIC PANEL Lab Routine Multiple sclerosis (HCC) Expected: 04/24/2022, Expires: 06/24/2022 [facility] Work Phone: Comment on above: Expected: 04/24/2022 , Expires: 06/24/2022 Start: 04-24-2022 End: 06-24-2022 IgG [Mass/volume] in Serum or Plasma IGG Lab Routine Multiple sclerosis (HCC) Expected: 04/24/2022, Expires: 06/24/2022 [facility] Work Phone: Comment on above: Expected: 04/24/2022 , Expires: 06/24/2022 Start: 04-24-2022 End: 06-24-2022 IgM [Mass/volume] in Serum or Plasma IGM Lab Routine Multiple sclerosis (HCC) Expected: 04/24/2022, Expires: 06/24/2022 [facility] Work Phone: Comment on above: Expected: 04/24/2022 , Expires: 06/24/2022 Start: 04-24-2022 End: 06-24-2022 VARICELLA ZOSTER IGG VARICELLA ZOSTER IGG Lab Routine Multiple sclerosis (HCC) Expected: 04/24/2022, Expires: 06/24/2022 [facility] Work Phone: Comment on above: Expected: 04/24/2022 , Expires: 06/24/2022 Start: 02-08-2022 Adult depression screening assessment DEPRESSION SCREENING [facility] Start: 11-10-2021 DEPRESSION ASSESSMENT DEPRESSION ASS ESSMENT [facility] Start: 01-05-2020 Echocardiography Mirna ALAS-C ardiology-[facility] vahid 2300 Work Phone: Start: 2015 HPV TESTING HPV TESTING [facility] Start: 2015 Screening for malign ant neoplasm of cervix HPV Testing [facility] Start: 2012 HPV Vaccine (1 - 3-d ose SCDM series) HPV Vaccine (1 - 3-dose SCDM series) [facility] Start: 2006 Screening for malign ant neoplasm of cervix HPV/Cotest [facility] Start: 2004 Hepatitis B Vaccines (1 of 3 - 19+ 3-dose series) Hepatitis B Vaccines (1 of 3 - 19+ 3-dose series) [facility] Start: 2003 Anxiety Screening Anxiety Screening [facility] Start: 2003 Depression Screening Depression Scre ening [facility] Start: 1998 Varicella vaccination Varicell a Vaccines (1 of 2 - 13+ 2-dose series) [facility] Start: 1990 COVID-19 VACCINE (#1) COVID-19 VACCI NE (#1) [facility] Start: 1990 COVID-19 VACCINE (1) COVID-19 VACCIN E (1) [facility] Start: 1986 MMR Vaccines (1 of 1 - Standard series) MMR Vaccines (1 of 1 - Standard series) [facility] Start: 02-01-1986 COVID-19 VACCINE (#1) COVID-19 VACCI NE (#1) [facility] Start: 1985 Annual wellness visit U [facility] Start: 1985 HEPATITIS B (1 of 3 - 3-dose series) HEPATITIS B (1 of 3 - 3-dose series) [facility] Start: 1985 Lipid panel Lipid Panel [facility] Start: 1985 Medicare Annual Well ness Visit Medicare Annual Wellness Visit (AWV) [facility] 25-hydroxyvitamin D3 [Mass/volume] in Serum or Plasma VITAMIN D 25 HYDROXY Lab Routine Vitamin D deficiency 04/25/2022 11:12 AM EDT [facility] Work Phone: Bacteria identified in Genital specimen by Aerobe culture [facility] Work Phone: BLOOD TB SCREEN BLOOD TB SCREEN Lab Routine Multiple sclerosis (HCC) 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) 03/17/2025 9:38 AM EDT [facility] CHLAMYDIA TRACHOMATI S (GENITO/STI) CHLAMYDIA TRACHOMATIS (GENITO/STI) Lab Routine Rash Ordered: 08/25/2025 [facility] Comment on above: Ordered: 08/25/2025 Comprehensive metabo lic 2000 panel - Serum or Plasma COMP METABOLIC PANEL Lab Routine Multiple sclerosis (HCC) 04/25/2022 11:12 AM EDT [facility] Work Phone: Cytology Cervical or vaginal smear or scraping study Pap Smear Pathology and Cytology Routine Well woman exam with routine gynecological exam Ordered: 04/11/2025 [facility] Work Phone: Comment on above: Ordered: 04/11/2025 ECG COMPLETE ECG COMPLETE ECG Routine Vasovagal syncope Ordered: 07/19/2024 [facility] Work Phone: Comment on above: Ordered: 07/19/2024 End: 04-25-2023 EPIL EEG ROUTINE EPIL EEG ROUTINE NEUROLOGY Routine Multiple sclerosis (HCC) 1 Occurrences starting 04/25/2022 until 04/25/2023 [facility] Work Phone: Comment on above: 1 Occurrences starti ng 04/25/2022 until 04/25/2023 Glucose measurement estimated from glycated hemoglobin [facility] Hepatitis A virus antibody, IgM type [facility] Hepatitis B core ant ibody measurement, IgM type [facility] Hepatitis B virus guo rface Ag [Presence] in Serum or Plasma by Immunoassay [facility] Hepatitis C virus Ig G Ab [Presence] in Serum or Plasma by Immunoassay [facility] Hepatitis C virus RN A [log units/volume] (viral load) in Serum or Plasma by DEIRDRE with probe detection [facility] Hepatitis C virus RN A [Units/volume] (viral load) in Serum or Plasma by DEIRDRE with probe detection [facility] End: 06-08-2025 HOME SLEEP APNEA TEST (HSAT) HOME SLEEP APNEA TEST (HSAT) Procedures Routine Snoring Chronic insomnia Malaise and fatigue At risk for obstructive sleep apnea 1 Occurrences starting 06/08/2024 until 06/08/2025 [facility] Work Phone: Comment on above: 1 Occurrences starti ng 06/08/2024 until 06/08/2025 Human papilloma viru s DNA [Presence] in Unspecified specimen by Probe with amplification HPV DNA probe, amplified Microbiology Routine Well woman exam with routine gynecological exam Ordered: 04/11/2025 [facility] Comment on above: Ordered: 04/11/2025 IgG [Mass/volume] in Serum or Plasma IGG Lab Routine Multiple sclerosis (HCC) 04/25/2022 11:12 AM T [facility] Work Phone: IgG [Mass/volume] in Serum or Plasma [facility] IgM [Mass/volume] in Serum or Plasma IGM Lab Routine Multiple sclerosis (HCC) 04/25/2022 11:12 AM T [facility] Work Phone: IgM [Mass/volume] in Serum or Plasma [facility] Interferon gamma assay [facility] End: 03-05-2026 MR Brain WO and W contrast IV MRI BRAIN WO/W IVCON Radiology Routine Multiple sclerosis (HCC) 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) 1 Occurrences starting 02/03/2025 until 03/05/2026 [facility] Comment on above: 1 Occurrences starti ng 02/03/2025 until 03/05/2026 MR Brain WO and W contrast IV MRI BRAIN WO/W IVCON Radiology Routine Multiple sclerosis (HCC) 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) 02/10/2025 3:57 PM EDT [facility] Work Phone: End: 03-05-2026 MR Cervical spine WO and W contrast IV MRI CERVICAL SPINE WO/W IVCON Radiology Routine Multiple sclerosis (HCC) 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) 1 Occurrences starting 02/03/2025 until 03/05/2026 [facility] Comment on above: 1 Occurrences starti ng 02/03/2025 until 03/05/2026 MR Cervical spine WO and W contrast IV MRI CERVICAL SPINE WO/W IVCON Radiology Routine Multiple sclerosis (HCC) 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) 02/10/2025 3:58 PM EDT [facility] End: 01-23-2025 MR Thoracic spine WO and W contrast IV MRI THORACIC SPINE WO/W IVCON Radiology Routine Multiple sclerosis (HCC) 1 Occurrences starting 12/25/2023 until 01/23/2025 [facility] Work Phone: Comment on above: 1 Occurrences starti ng 12/25/2023 until 01/23/2025 End: 03-05-2026 MR Thoracic spine WO and W contrast IV MRI THORACIC SPINE WO/W IVCON Radiology Routine Multiple sclerosis (HCC) 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) 1 Occurrences starting 02/03/2025 until 03/05/2026 [facility] Comment on above: 1 Occurrences starti ng 02/03/2025 until 03/05/2026 MR Thoracic spine WO and W contrast IV MRI THORACIC SPINE WO/W IVCON Radiology Routine Multiple sclerosis (HCC) 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) 02/10/2025 3:58 PM EDT [facility] Mycobacterium tuberculosis stimulated gamma interferon [Interpretation] in Blood [facility] Mycobacterium tuberculosis stimulated gamma interferon release by CD4+ and CD8+ T-cells [Units/volume] corrected for background in Blood [facility] Mycobacterium tuberculosis tuberculin stimulated gamma interferon [Presence] in Blood [facility] Neisseria gonorrhoea e DNA [Presence] in Unspecified specimen by DEIRDRE with probe detection Neisseria gonorrhea DNA probe, direct Lab Routine Rash Ordered: 08/25/2025 [facility] Comment on above: Ordered: 08/25/2025 OT PLAN OF CARE CERTIFICATION OT PLAN OF CARE CERTIFICATION Procedures Routine Multiple sclerosis (HCC) Abnormal antibody titer Neurogenic bladder Lack of coordination Ordered: 05/30/2022 [facility] Work Phone: Comment on above: Ordered: 05/30/2022 Patient Education [facility] Work Phone: Patient referral [facility] Work Phone: PT PLAN OF CARE CERTIFICATION PT PLAN OF CARE CERTIFICATION Procedures Routine Abnormality of gait Multiple sclerosis (HCC) Ordered: 07/22/2022 [facility] Work Phone: Comment on above: Ordered: 07/22/2022 SPEECH PLAN OF CARE CERTIFICATION SPEECH PLAN OF CARE CERTIFICATION Procedures Routine Multiple sclerosis (HCC) Cognitive communication deficit Ordered: 05/30/2022 [facility] Work Phone: Comment on above: Ordered: 05/30/2022 SPEECH PLAN OF CARE CERTIFICATION SPEECH PLAN OF CARE CERTIFICATION Procedures Routine Cognitive communication deficit Ordered: 07/22/2022 [facility] Work Phone: Comment on above: Ordered: 07/22/2022 SURESWAB(R) ADVANCED VAGINITIS PLUS, TMA SURESWAB(R) ADVANCED VAGINITIS PLUS, TMA Pathology and Cytology Routine Rash Ordered: 08/25/2025 [facility] Work Phone: Comment on above: Ordered: 08/25/2025 Thyrotropin [Units/volume] in Serum or Plasma THYROID STIMULATING HORMONE Lab Routine Multiple sclerosis (HCC) Other specified hypothyroidism 03/17/2025 9:38 AM EDT [facility] Thyroxine (T4) free [Mass/volume] in Serum or Plasma T4 FREE/FREE THYROXINE Lab Routine Multiple sclerosis (HCC) Other specified hypothyroidism 03/17/2025 9:38 AM EDT [facility] Triiodothyronine (T3 ) [Mass/volume] in Serum or Plasma T3 Lab Routine Multiple sclerosis (HCC) Other specified hypothyroidism 03/17/2025 9:38 AM EDT [facility] UA DIP,URINE HCG (POC) UA DIP,UR INE HCG (POC) Lab Routine Multiple sclerosis (HCC) Ordered: 03/17/2025 [facility] Comment on above: Ordered: 03/17/2025 US for US OB follow UP transabdominal approach Imaging Routine Encounter for supervision of normal , unspecified, unspecified trimester 09/17/2024 3:04 PM EST [facility] Service Area Work Phone: VARICELLA ZOSTER IGG VARICELLA Z YARELIS IGG Lab Routine Multiple sclerosis (HCC) 04/25/2022 11:12 AM EDT [facility] Work Phone: Varicella zoster vir us IgG Ab [Units/volume] in Serum by Immunoassay [facility] End: 04-03-2025 XR Cervical spine AP and Lateral and oblique XR CERV OTHER 4V AP/LAT/OBL Radiology Routine Neck pain 1 Occurrences starting 03/04/2024 until 04/03/2025 [facility] Work Phone: Comment on above: 1 Occurrences starti ng 03/04/2024 until 04/03/2025 XR Cervical spine AP and Lateral and oblique XR CERV OTHER 4V AP/LAT/OBL Radiology Routine Neck pain 03/04/2024 2:13 PM EDT [facility] End: 03-30-2026 XR Chest PA and Lateral XR CHEST 2V FRONTAL/LAT Radiology Routine Abnormal pleural fluid 1 Occurrences starting 02/28/2025 until 03/30/2026 [facility] Work Phone: Comment on above: 1 Occurrences starti ng 02/28/2025 until 03/30/2026 XR Chest PA and Lateral XR CHEST 2V FRONTAL/LAT Radiology Routine Abnormal pleural fluid 03/12/2025 11:23 AM EDT [facility] Work Phone: End: 04-03-2025 XR Lumbar spine 3 Views XR LUMBAR GENERAL 3V AP/LAT/L5-S1 Radiology Routine Chronic midline low back pain without sciatica 1 Occurrences starting 03/04/2024 until 04/03/2025 [facility] Comment on above: 1 Occurrences starti ng 03/04/2024 until 04/03/2025 XR Lumbar spine 3 Views XR LUMBA R GENERAL 3V AP/LAT/L5-S1 Radiology Routine Chronic midline low back pain without sciatica 03/04/2024 2:12 PM EDT [facility] End: 10-10-2026 XR Lumbar spine 3 Views XR LUMBAR GENERAL 3V AP/LAT/L5-S1 Radiology Routine Lumbar sprain, initial encounter 1 Occurrences starting 07/20/2025 until 08/19/2026 [facility] Work Phone: Comment on above: 1 Occurrences starti ng 07/20/2025 until 08/19/2026 XR Lumbar spine 3 Views XR LUMBA R GENERAL 3V AP/LAT/L5-S1 Radiology Routine Lumbar sprain, initial encounter 07/20/2025 12:40 PM EDT [facility] [id number]-[id number] estl [address] Work Phone: [facility] NEGATED: Highlighted row has been ruled out! Planned Goals not documented [id number] [address] Work Phone: Immunizations Immunization Date Immunization Notes Care Provider Jacob avera [facility] 08-24-2025 tetanus toxoid, reduced diphtheria toxoid, and acellular pertussis vaccine, adsorbed Janice Lane MD Work Phone: [facility] 11-20-2023 influenza, injectabl e, quadrivalent, preservative free Kenzie Mccall [facility] 11-20-2023 influenza virus vaccine, unspecified formulation Kenzie Mccall [facility] 01-15-2022 tetanus toxoid, reduced diphtheria toxoid, and acellular pertussis vaccine, adsorbed Nidia Garcia MD Work Phone: [facility] Payers Date Payer Category Payer Unknown [id number] 2025 Self-pay [id number] 2024 Medicare [id number] 2023 Medicare (Managed Care) 1.2. [id number] 2023 Private Health Insurance [id number] 2022 Unknown [id number] .[id number] 2021 Medicare [employer] BY [facility] SNP [id number] 2021-Present [phone] [address] [place] [address] O [id number] .[id number] 2021 Medicare [id number] .[id number] 2020 Private Health Insurance [id number] 2020 Medicaid MEDICAID [facility] MEDICAID [id number] 2020-Present [phone] [address] [place] [address] Medicaid [id number] 2020 Medicaid [id number]. [id number] .[id number] 2020 Medicaid [id number] 1985 Unknown [id number] 2.16.840.1.539368.3.579.2.7 32 1985 Unknown [id number] 2.16.840.1.134884.3.579.2.1 245 1985 Unknown [id number] 2.16.840.1.691260.3.579.2.1 245 1985 Unknown [id number] 2.16.840.1.997149.3.579.2.1 245 1985 Unknown [id number] 2.16.840.1.231515.3.579.2.1 245 1985 Unknown [id number] 2.16.840.1.278081.3.579.2.1 245 1985 Unknown [id number] 2.16.840.1.911575.3.579.2.1 245 1985 Unknown [id number] 2.16840.1.858297.3.579.2.1 245 1985 Unknown [id number] 2.16840.1.848501.3.579.2.1 245 1985 Unknown [id number] 2.16840.1.684272.3.579.2.1 245 1985 Unknown [id number] 2.16840.1.373738.3.579.2.1 245 1985 Unknown [id number] 2.16840.1.670631.3.579.2.1 245 1985 Unknown [id number] 2.16840.1.437671.3.579.2.1 259 1985 Unknown [id number] 2.16840.1.600129.3.579.2.1 259 1985 Unknown [id number] 2.16840.1.298311.3.579.2.1 259 1985 Unknown [id number] 2.16.840.1.597622.3.579.2.1 259 1985 Unknown [id number] 2.16840.1.415394.3.579.2.1 259 1985 Unknown [id number] 2.16840.1.780104.3.579.2.1 259 1985 Unknown [id number] 2.16.840.1.326922.3.579.2.1 259 1985 Unknown [id number] 2.16.840.1.505542.3.579.2.1 259 1985 Unknown [id number] 2.16.840.1.005260.3.579.2.1 259 1985 Unknown [id number] 2.16.840.1.091469.3.579.2.1 259 1985 Unknown [id number] 2.16.840.1.504667.3.579.2.1 259 1985 Unknown [id number] 2.16.840.1.906160.3.579.2.1 259 1985 Unknown [id number] 2.16.840.1.333884.3.579.2.1 259 1985 Unknown [id number] 2.16.840.1.505511.3.579.2.1 259 1985 Unknown [id number] 2.16.840.1.539915.3.579.2.1 259 1985 Unknown [id number] 2.16.840.1.987362.3.579.2.1 259 1985 Unknown [id number] 2.16.840.1.210829.3.579.2.1 259 1985 Unknown [id number] 2.16.840.1.766115.3.579.2.1 259 Medicaid [id number] Medicare [id number] Unknown [id number] 2.16.840.1.089231.3.579.2.5 31 Unknown [id number] 2.16.840.1.119472.3.579.2.5 31 Unknown [id number] 2.16840.1.980045.3.579.2.5 31 Social History Date Type Detail Facility Tobacco smoking stat us NHIS Unknown if ever smoked [facility] Start: 1985 Sex Assigned At Female [facility] Start: 11-15-2019 End: 06-15-2024 Tobacco smoking status NHIS Never smoked tobacco [facility] Start: 11-15-2019 End: 06-15-2024 Tobacco use and exposure Smokeless tobacco non-user [facility] Start: 01-15-2022 End: 07-20-2025 Alcohol intake Ex-drinker (finding) [facility] Start: 11-15-2019 History SDOH Alcohol Comment occas [facility] Start: 03-16-2022 End: 10-12-2024 Exposure to SARS-CoV-2 (event) Not sure [facility] Start: 04-25-2022 Education 17 [facility] Start: 12-16-2022 History SDOH Alcohol Frequency 1 [facility] Start: 12-16-2022 History SDOH Alcohol Std Drinks 0 [facility] Start: 12-16-2022 History SDOH Social Connections Phone 4 [facility] Start: 12-16-2022 History SDOH Social Connections Membership 2 [facility] Start: 12-16-2022 History SDOH Social Connections Living 7 [facility] Start: 12-16-2022 History SDOH Physica l Activity MPS 3 [facility] Start: 12-16-2022 History SDOH Stress 5 [facility] Start: 12-16-2022 End: 07-14-2025 History of Social function [facility] Start: 12-16-2022 End: 07-14-2025 Social connection and isolation panel [facility] Do you belong to any clubs or organizations such as anglican groups, unions, fraternal or athletic groups, or school groups? No [facility] Are you now , , , , never or living with a partner? Never [facility] How often to you hav e a drink containing alcohol? Never [facility] Start: 10-01-2019 End: 01-22-2023 How many standard drinks containing alcohol do you have on a typical day? Patient does not drink [facility] How hard is it for y ou to pay for the very basics like food, housing, medical care, and heating Somewhat hard [facility] Do you feel stress - tense, restless, nervous, or anxious, or unable to sleep at night because your mind is troubled all the time - these days [OSQ] Very much [facility] (I/We) worried wheth er (my/our) food would run out before (I/we) got money to buy more. Often true [facility] Start: 12-23-2020 Gender identity Identifies as female gender (finding) [facility] Start: 12-23-2020 Sexual orientation Heterosexual (brandin whalen) [facility] History of tobacco use Passive smoker [facility] Start: 12-11-2023 End: 08-25-2025 Alcohol intake Lifetime non-drinker (finding) [facility] Start: 02-04-2024 [facility] Tobacco smoking stat [facility] Tobacco smoking consumption unknown [facility] Work Phone: Start: 02-04-2025 End: 02-13-2025 Sex Female (finding) [facility] How hard is it for y ou to pay for the very basics like food, housing, medical care, and heating Not very hard [facility] Do you feel stress - tense, restless, nervous, or anxious, or unable to sleep at night because your mind is troubled all the time - these days [OSQ] Rather much [facility] (I/We) worried wheth er (my/our) food would run out before (I/we) got money to buy more. Never true [facility] NEGATED: Highlighted row - - [id number]-[id number]-Bimjb vahid [address] Work Phone: NEGATED: Highlighted row N [facility] Goals Date Patient Goal Desired Activity /State Personal health goal Personal health goal Personal health goal Functional Status Date Assessment Result Facility 02-24-2025 Total score [AUDIT-C] 0 02/25/20 25 7:40 AM EDT User, Estiven [facility] 02-24-2025 How often to you hav e a drink containing alcohol? Never 02/24/2025 7:40 AM EDT User, Estiven Never [facility] 02-24-2025 Functional status Patient does n ot drink 02/24/2025 7:40 AM EDT User, Estiven Patient does not drink [facility] 02-24-2025 How often do you hav e 6 or more drinks on 1 occasion? Never 02/24/2025 7:40 AM EDT AntoineEstiven Never [facility] 01-11-2021 Are you deaf, or do you have serious difficulty hearing No 01/11/2021 4:00 PM Reny Castellano RN No [facility] 01-11-2021 Are you blind, or do you have serious difficulty seeing, even when wearing glasses No 01/11/2021 4:00 PM Reny Castellano, FREYA No [facility] 01-11-2021 Do you have serious difficulty walking or climbing stairs No 01/11/2021 4:00 PM Reny Castellano RN No [facility] 01-11-2021 Do you have difficul ty dressing or bathing No 01/11/2021 4:00 PM Reny Castellano RN No [facility] 01-11-2021 Because of a physica l, mental, or emotional condition, do you have difficulty doing errands alone such as visiting a physician's office or shopping No 01/11/2021 4:00 PM Reny Castellano, FREYA No [facility] NEGATED: Highlighted row Functional performance Functional status health issues are not documented Disease [facility] [address] Work Phone: Mental Status Date Assessment Result Facility 01-11-2021 Because of a physical, mental, or emotional condition, do you have serious difficulty concentrating, remembering, or making decisions No 01/11/2021 4:00 PM Reny Castellano RN No [facility] NEGATED: Highlighted row Cognitive function [Interpretation] Cognitive status health issues are not documented Disease [facility] [address] Work Phone: Clinical Notes 04-17-2021 to 08-25-2025 [place] Mon - 08/25/2025 1:30 PM Belle Matos RT(I[place]) - 07/20/2025 12:40 PM Janice Rowe MD - 07/20/2025 12:13 PM Kimberly Crowley DO - 07/14/2025 6:45 PM EDTPatient Instructions Note Date & Type Note Facility 08-25-2025 History of Present illness Narrative Images from the original note were not included. Reason for Appointment: Patient ID: Carol Ann Martinez is a 40 y.o. female who [...] (OCREVUS IV) Every 6 months Vit-Fe Fumarate-FA (M- Plus) 27-1 MG tablet 1 tablet, Oral, Daily QUEtiapine (SEROQUEL) 25-50 mg, Every 12 hours PRN tobramycin (Tobrex) 0.3 % ophthalmic solution valACYclovir (VALTREX) 1,000 mg, Oral, 2 times daily ALLERGIES Allergies[1] PROBLEMS Active Ambulatory Problems Diagnosis Date Noted HSV (herpes simplex virus) infection 03/22/2024 Positive urine test ([facility]) 03/22/2024 Well woman exam with routine gynecological [...] Vitals: Estimated body mass index is 25.08 kg/m as calculated from the following: Height [...] Hypoglycemia Low iron MS (multiple sclerosis) 2006 [facility] - Dr. Williamson Optic neuritis multiple occurrences since 2006 - only OS until 4 yrs ago when OD involved however never got vision back in OD. Urinary incontinence 2008 [3] Family [...] WISDOM TOOTH EXTRACTION documented in this encounter [facility] 08-02-2025 Note HNO ID: [id number] Author: LOLI JIANG APRN.[employer]ANT OPERATOR Service: ? Author Type: Nurse Practitioner Type: Progress Notes Filed: 08/02/2025 13:35 Note Text: FOLLOW UP - PSYCHIATRIC PROGRESS NOTE Visit Type:Virtual Visit utilizing two-way audio and video for at least a portion of the visit. Consent for virtual visit obtained verbally. Confidentiality limitations with virtual visits reviewed with the patient and guardian, if present, who have accepted the risk verbally prior to proceeding with encounter. I have communicated my name and active licensure. The patient's identity and physical location were verified at the time of this visit. Either the patient or their legal sales representative raw fibers has been informed of the risks and benefits of -- and alternatives to -- treatment through a remote evaluation and consents to proceed with the evaluation remotely. Reason for Visit: Outpatient follow-up and safety monitoring of previously prescribed psychiatric medication, psychotherapy or other treatment Recording using EndorphMe software for draft documentation of the visit was discussed with the patient/authorized sales representative raw fibers; all questions welcomed and answered. Patient/authorized sales representative raw fibers agreed to proceed Past psychiatric medication trials: Lunesta- worked well; 2019 Trazodone- didn't help Unisom- helps a little bit Doxepin- helped with sleep; CC: Mood has been good. HPI: Anxiety and Depression: - Mood described as good. - Experiencing stress related to an upcoming move; current housing situation fell through. - Family lives 10 hours away; hesitant to move back due to childhood trauma. - Working with a therapist to address past trauma. - Denies suicidal ideation. - Taking Seroquel, recently increased to 4 tablets at bedtime and occasionally 3 tablets during naps. - Appetite is good. MS: - Occasionally unable to walk. States she would rather live in a long term than return home due to past trauma and stay with family and receive support from them. She hasn't told family she is struggling with housing. States she is working with [employer] for assistance in finding housing. Risks and benefits of the medication, including any black box warnings, were discussed with the patient. Interval Progress: Slightly improved PATIENT DATA: Generalized Anxiety Disorder Scale (ABHILASH-7) 03/07/2025 05/02/2025 07/26/2025 ABHILASH - 7 SCORES Score 7 12 12 (0-4) minimal anxiety, (5-9) mild anxiety, (10-14) moderate anxiety, (15-21) severe anxiety Patient Health Questionnaire (PHQ-9) 03/10/2025 05/02/2025 07/26/2025 PHQ-9 Score 15 15 13 (0-4) minimal depression, (5-9) mild depression, (10-14) moderate depression, (15-19) moderately severe depression, (20-27) severe depression PROMIS Global Health 02/03/2025 05/02/2025 07/26/2025 PROMIS Global Health - (T-Scores - the mean of general population = 50. Five points is a clinically meaningful difference.) Physical T-Score 29.6 29.6 26.7 Mental T-Score 31.3 36.3 36.3 CSSR 01/08/2021 02/14/2025 03/07/2025 NI CSSR FU Suicide Risk (ED/IP Initial Screening): No Risk No Risk No Risk Data saved with a previous flowsheet row definition PAST MEDICAL HISTORY Diagnosis Date Abnormal Pap smear of cervix 2007 Anemia Multiple sclerosis (HCC) Seizure (HCC) POSSIBLE HISTORY OF Thyroid disease POSSIBLE HYPO IN THE PAST PAST SURGICAL HISTORY Procedure Laterality Date OFFICE LEEP 2007 Current Outpatient Medications Medication Sig Dispense Refill QUEtiapine (SEROQUEL) 25 mg tablet May take 1-4 tablets by mouth at bedtime as needed. May also take 1-3 tablets once daily as needed. 210 tablet 2 LOTEMAX 0.5 % eye ointment Apply small amount to eyelid at bedtime for 3 nights in a row then use as needed but sparingly. ketotifen fumarate (ZADITOR) 0.025 % (0.035 %) ophthalmic solution Use 1 drop in both eyes two times a day. 5 mL 1 M-BLAKE PLUS 27 mg iron- 1 mg Take 1 tablet by mouth once daily. ergocalciferol 50,000 unit capsule (VITAMIN D2, DRISDOL) TAKE 1 CAPSULE BY MOUTH ONCE EVERY WEEK 12 capsule 3 methylPREDNISolone (MEDROL DOSE-PACK) 4 mg Dose-Pack Day 1: 6 tablets Day 2: 5 tablets Day 3: 4 tablets Day 4: 3 tablets Day 5: 2 tablets Day 6: 1 tablet magnesium oxide (MAG-OX) 400 mg (241.3 mg magnesium) tablet Take 1 tablet by mouth daily at bedtime. 30 tablet 5 cholecalciferol (VITAMIN D-3) 5,000 unit tab Take 1 tablet by mouth once daily. 90 tablet 3 ketoconazole (NIZORAL) 2 % shampoo 2-3 times weekly as body wash 125 mL 11 vitamin B complex with C-FA-CU-ZN renal vitamins (DIATX ZN) 5-1.5-25 mg tab Take by mouth every 24 hours. FERROUS SULFATE ORAL Take by mouth every 24 hours. multivitamin with minerals (MULTIPLE VITAMIN-MINERALS) tablet Take 1 tablet by mouth every 24 hours. ketoconazole (NIZORAL) 2 % cream Apply to affected area once daily. Apply qd 30 g 3 tiZANidine (ZANAFLEX) 2 mg tablet Take 1 tablet by mouth every 8 ho (more content not included)... [facility] 07-20-2025 Note HNO ID: [id number] Author: BELLE HANCOCK RT(Iona) Service: ? Author Type: Technologist Type: Progress Notes Filed: 07/20/2025 12:40 Note Text: Radiology Service Progress Note PATIENT NAME: Carol Ann Martinez DATE OF SERVICE: July 20, 2025 TIME: 12:40 PM PATIENT IDENTITY VERIFICATION COMPLETED USING TWO (2) IDENTIFIERS: Name and Date of confirmed by patient verbally. FALL SCREENING: Has the patient had 2 falls in the last year or 1 fall with injury or currently using an Ambulatory Assistive Device (Walker, Cane, Wheelchair, Crutches, etc.)? No PATIENT GENDER DATA: Assigned female at . status: : No status: NO. PATIENT RELEVANT IMPLANT DATA REVIEWED: Not Applicable PATIENT PRESENTS WITH AN IMPLANTABLE OR ATTACHED PRESIDING STEWARD: No RADIOLOGY DEPARTMENT: General X-ray: Exam(s) Completed: Spine X-Ray(s): Lumbar AP / LAT / L5-S1 PERIPHERAL IV DATA: Not applicable SIGNED BY: RT Keysha(R) July 20, 2025 12:40 PM [facility] 07-20-2025 History of Present illness Narrative Radiology Service Progress Note PATIENT NAME: Carol Ann Martinez DATE OF SERVICE: July 20, 2025 TIME: 12:40 PM PATIENT IDENTITY VERIFICATION COMPLETED USING TWO (2) IDENTIFIERS: Name and Date of confirmed by patient verbally. FALL SCREENING: Has the patient had 2 falls in the last year or 1 fall with injury or currently using an Ambulatory Assistive Device (Walker, Cane, Wheelchair, Crutches, etc.)? No PATIENT GENDER DATA: Assigned female at . status: : No status: NO. PATIENT RELEVANT IMPLANT DATA REVIEWED: Not Applicable PATIENT PRESENTS WITH AN IMPLANTABLE OR ATTACHED PRESIDING STEWARD: No RADIOLOGY DEPARTMENT: General X-ray: Exam(s) Completed: Spine X-Ray(s): Lumbar AP / LAT / L5-S1 PERIPHERAL IV DATA: Not applicable SIGNED BY: RT Keysha(R) July 20, 2025 12:40 PM documented in this encounter [facility] 07-20-2025 Note HNO ID: [id number] Author: JANICE LANE MD Service: ? Author Type: Physician Type: Progress Notes Filed: 07/20/2025 12:29 Note Text: HISTORY OF PRESENT ILLNESS: The patient is a 39-year-old female with MS and insomnia, presenting for a physical. Physical Exam: - Carol Ann Martinez' first menstrual period since delivery began yesterday. - Carol Ann declines flu shot. - Recent blood work in March showed normal thyroid and vitamin D levels. Multiple Sclerosis: - Managed with Ocrevus infusions every 6 months; next infusion scheduled for September. - Previously prescribed Copaxone, but not currently taking it. - Carol Ann reports numbness in back and legs. - Unable to attend physical therapy due to time constraints. - Denies current pain down back or legs. Insomnia: - Managed by psychiatry with Seroquel, which has been effective in improving sleep. - Carol Ann has been taking Seroquel for 2-3 months; confirmed safe for use while . Right-Sided Sciatica: - Chronic right-sided sciatica since , persisting for approximately one year. - Pain localized from the lower back to the upper hip area; no longer radiates down the leg. - Aggravated by certain movements and lifting. - Chiropractic treatment twice a week provides temporary relief. - No x-rays performed. Upper Respiratory Symptoms: - Recent onset of crud thing causing low energy. - Evaluated at urgent care on Friday; prescribed Aflonex and an antibiotic. Family: - Carol Ann is and supplementing with formula. - Has a daughter who recently started school. Past Medical History: PAST MEDICAL HISTORY Diagnosis Date Abnormal Pap smear of cervix 2008 Anemia Costochondritis, acute 04/17/2021 Edema of lower extremity 04/17/2021 Multiple sclerosis (HCC) Seizure (HCC) POSSIBLE HISTORY OF Thyroid disease POSSIBLE HYPO IN THE PAST Surgical History: PAST SURGICAL HISTORY Procedure Laterality Date OFFICE LEEP 2008 Family History: FAMILY HISTORY Problem Relation Age of Onset No Ocular Disease Mother Schizophrenia Mother No Ocular Disease Father Prostate Cancer Father Seizures Paternal Aunt Social History: SOCIAL HISTORY[1] Home Medications: Current Outpatient Medications Medication Sig Dispense Refill LOTEMAX 0.5 % eye ointment Apply small amount to eyelid at bedtime for 3 nights in a row then use as needed but sparingly. QUEtiapine (SEROQUEL) 25 mg tablet Take 2-3 tablets by mouth daily at bedtime. May also take 1 tablet once daily as needed. 120 tablet 2 ketotifen fumarate (ZADITOR) 0.025 % (0.035 %) ophthalmic solution Use 1 drop in both eyes two times a day. 5 mL 1 M- PLUS 27 mg iron- 1 mg Take 1 tablet by mouth once daily. ergocalciferol 50,000 unit capsule (VITAMIN D2, DRISDOL) TAKE 1 CAPSULE BY MOUTH ONCE EVERY WEEK 12 capsule 3 magnesium oxide (MAG-OX) 400 mg (241.3 mg magnesium) tablet Take 1 tablet by mouth daily at bedtime. 30 tablet 5 cholecalciferol (VITAMIN D-3) 5,000 unit tab Take 1 tablet by mouth once daily. 90 tablet 3 ketoconazole (NIZORAL) 2 % shampoo 2-3 times weekly as body wash 125 mL 11 FERROUS SULFATE ORAL Take by mouth every 24 hours. multivitamin with minerals (MULTIPLE VITAMIN-MINERALS) tablet Take 1 tablet by mouth every 24 hours. ketoconazole (NIZORAL) 2 % cream Apply to affected area once daily. Apply qd 30 g 3 tiZANidine (ZANAFLEX) 2 mg tablet Take 1 tablet by mouth every 8 hours as needed. 90 tablet 3 VITAMIN B COMPLEX ORAL Take by mouth. fluticasone (FLONASE) 50 mcg/actuation nasal spray Use 1 [place] in each nostril once daily. 1 g 5 tobramycin (TOBREX) 0.3 % ophthalmic solution (Patient not taking: Reported on 05/23/2025) predniSONE (DELTASONE) 50 mg Take 25 pills per day. Take with food no later than 2 pm. (Patient not taking: Reported on 04/01/2025) 75 tablet 0 predniSONE (DELTASONE) 20 mg tablet Take 60mg (3 tabs) x 4 days, take 40mg (2 tabs) x 4 days, take 20mg (1 tab) x 4 days. To be taken AFTER high dose oral steroids (Patient not taking: Reported on 04/01/2025) 24 tablet 0 glatiramer (COPAXONE) 40 mg/mL injection Inject 40 mg subcutaneously every Friday, Friday, and Friday. (Patient not taking: Reported on 04/01/2025) 12 mL 5 methylPREDNISolone (MEDROL DOSE-PACK) 4 mg Dose-Pack Day 1: 6 tablets Day 2: 5 tablets Day 3: 4 tablets Day 4: 3 tablets Day 5: 2 tablets Day 6: 1 tablet mometasone (ELOCON) 0.1 % cream Apply to affected area once daily. (Patient not taking: Reported on 04/01/2025) 30 g 0 vitamin B complex with C-FA-CU-ZN renal vitamins (DIATX ZN) 5-1.5-25 mg tab Take by mouth every 24 hours. No current facility-administered medications for this visit. REVIEW OF SYSTEMS: Constitutional: (+) fatigue Cardiovascular: (+) right-sided chest pain with movement Respiratory: (+) shortness of breath Genitourinary: (+) urinary frequency, (+) urinary urgency Musculoskeletal: (+) right lower b (more content not included)... [facility] 07-20-2025 History of Present illness Narrative HISTORY OF PRESENT ILLNESS: The patient is a 39-year-old female with MS and insomnia, presenting for a physical. Physical Exam: - Carol Ann Martinez' first menstrual period since delivery began yesterday. - Carol Ann declines flu shot. - Recent blood work in March showed normal thyroid and vitamin D levels. Multiple Sclerosis: - Managed with Ocrevus infusions every 6 months; next infusion scheduled for September. - Previously prescribed Copaxone, but not currently taking it. - Carol Ann reports numbness in back and legs. - Unable to attend physical therapy due to time constraints. - Denies current pain down back or legs. Insomnia: - Managed by psychiatry with Seroquel, which has been effective in improving sleep. - Carol Ann has been taking Seroquel for 2-3 months; confirmed safe for use while . Right-Sided Sciatica: - Chronic right-sided sciatica since , persisting for approximately one year. - Pain localized from the lower back to the upper hip area; no longer radiates down the leg. - Aggravated by certain movements and lifting. - Chiropractic treatment twice a week provides temporary relief. - No x-rays performed. Upper Respiratory Symptoms: - Recent onset of crud thing causing low energy. - Evaluated at urgent care on Friday; prescribed Aflonex and an antibiotic. Family: - Carol Ann is and supplementing with formula. - Has a daughter who recently started school. Past Medical History: PAST MEDICAL HISTORY Diagnosis Date Abnormal Pap smear of cervix 2007 Anemia Costochondritis, acute 04/17/2021 Edema of lower extremity 04/17/2021 Multiple sclerosis (HCC) Seizure (HCC) POSSIBLE HISTORY OF Thyroid disease POSSIBLE HYPO IN THE PAST Surgical History: PAST SURGICAL HISTORY Procedure Laterality Date OFFICE LEEP 2007 Family History: FAMILY HISTORY Problem Relation Age of Onset No Ocular Disease Mother Schizophrenia Mother No Ocular Disease Father Prostate Cancer Father Seizures Paternal Aunt Social History: SOCIAL HISTORY[1] Home Medications: Current Outpatient Medications Medication Sig Dispense Refill LOTEMAX 0.5 % eye ointment Apply small amount to eyelid at bedtime for 3 nights in a row then use as needed but sparingly. QUEtiapine (SEROQUEL) 25 mg tablet Take 2-3 tablets by mouth daily at bedtime. May also take 1 tablet once daily as needed. 120 tablet 2 ketotifen fumarate (ZADITOR) 0.025 % (0.035 %) ophthalmic solution Use 1 drop in both eyes two times a day. 5 mL 1 M- PLUS 27 mg iron- 1 mg Take 1 tablet by mouth once daily. ergocalciferol 50,000 unit capsule (VITAMIN D2, DRISDOL) TAKE 1 CAPSULE BY MOUTH ONCE EVERY WEEK 12 capsule 3 magnesium oxide (MAG-OX) 400 mg (241.3 mg magnesium) tablet Take 1 tablet by mouth daily at bedtime. 30 tablet 5 cholecalciferol (VITAMIN D-3) 5,000 unit tab Take 1 tablet by mouth once daily. 90 tablet 3 ketoconazole (NIZORAL) 2 % shampoo 2-3 times weekly as body wash 125 mL 11 FERROUS SULFATE ORAL Take by mouth every 24 hours. multivitamin with minerals (MULTIPLE VITAMIN-MINERALS) tablet Take 1 tablet by mouth every 24 hours. ketoconazole (NIZORAL) 2 % cream Apply to affected area once daily. Apply qd 30 g 3 tiZANidine (ZANAFLEX) 2 mg tablet Take 1 tablet by mouth every 8 hours as needed. 90 tablet 3 VITAMIN B COMPLEX ORAL Take by mouth. fluticasone (FLONASE) 50 mcg/actuation nasal spray Use 1 [place] in each nostril once daily. 1 g 5 tobramycin (TOBREX) 0.3 % ophthalmic solution (Patient not taking: Reported on 05/23/2025) predniSONE (DELTASONE) 50 mg Take 25 pills per day. Take with food no later than 2 pm. (Patient not taking: Reported on 04/01/2025) 75 tablet 0 predniSONE (DELTASONE) 20 mg tablet Take 60mg (3 tabs) x 4 days, take 40mg (2 tabs) x 4 days, take 20mg (1 tab) x 4 days. To be taken AFTER high dose oral steroids (Patient not taking: Reported on 04/01/2025) 24 tablet 0 glatiramer (COPAXONE) 40 mg/mL injection Inject 40 mg subcutaneously every Friday, Friday, and Friday. (Patient not taking: Reported on 04/01/2025) 12 mL 5 methylPREDNISolone (MEDROL DOSE-PACK) 4 mg Dose-Pack Day 1: 6 tablets Day 2: 5 tablets Day 3: 4 tablets Day 4: 3 tablets Day 5: 2 tablets Day 6: 1 tablet mometasone (ELOCON) 0.1 % cream Apply to affected area once daily. (Patient not taking: Reported on 04/01/2025) 30 g 0 vitamin B complex with C-FA-CU-ZN renal vitamins (DIATX ZN) 5-1.5-25 mg tab Take by mouth every 24 hours. No current facility-administered medications for this visit. REVIEW OF SYSTEMS: Constitutional: (+) fatigue Cardiovascular: (+) right-sided chest pain with movement Respiratory: (+) shortness of breath Genitourinary: (+) urinary frequency, (+) urinary urgency Musculoskeletal: (+) right lower back pain radiating to upper hip Neurological: (+) bilateral leg numbness PHYSICAL EXAMINATION: BP 127/86 Pulse 96 Temp 36.6 C (97.9 F) (Temporal) Ht 168.9 cm (5' 6.5 ) Wt 70.1 kg (154 lb 8.7 oz) LMP 12/21/2023 (Exact Date) SpO2 100% BMI 24.57 kg/m BMI 24.57 kg/(m^2) General: alert and appropriate, in no distress, ambulates and transfers well, well-hydrated, well nourished Skin: skin color, texture, turgor normal, no rashes or lesions noted Head: normocephalic, no abnormality or lesion noted Eyes: no injection, visual acuity is grossly normal Ears: external ears normal without preauricular LNs or mastoid tenderness, canals clear, TM's normal, hearing grossly normal Nose: septum midline without erythema or rhinorrhea Oropharynx: moist mucous membranes. no tonsillar [...] and non-tender, bowel sounds normal, no masses/bruit/organomegaly Back: Mild tenderness over the right paralumbar muscles. No point tenderness over the lumbar vertebrae. Full range of motion of back. Negative straight leg raise bilaterally Extremeties: normal exam of the extremities with FROM, 5/5 strenth, and strong pulses, no clubbing, cyanosis, or edema Neurologic: Gait normal, reflexes normal and symmetric, sensation grossly intact ASSESSMENT: 1. Wellness examination (Z00.00) - No acute concerns identified during examination. - Declined flu vaccination. 2. Lumbar sprain, initial encounter (S33.5XXA) - Chronic right-sided low back pain with sciatica symptoms persisting for approximately one year; temporary relief with intensive care nurse. - Ordered lumbar spine X-ray. - Referral to physical therapy. - Advised to follow up if back pain does not improve. 3. Multiple sclerosis (HCC) (G35) - Stable; currently managed with Ocrevus infusions every 6 months at [facility]. - No new neurological symptoms reported. - Reviewed blood work from March, including thyroid and vitamin D levels. 4. Chronic insomnia (F51.04) - Managed by psychiatry with low-dose Seroquel, which is providing effective sleep. - Patient is ; confirmed with psychiatry that Seroquel is safe during . Janice Lane MD There are no Patient Instructions on file for this visit. Janice Lane MD [1] Social History Tobacco Use Smoking status: Never Passive exposure: Past Smokeless tobacco: Never Vaping Use Vaping status: Never Used Substance Use Topics Alcohol use: Not Currently Comment: occas Drug use: Never documented in this encounter [facility] 07-14-2025 History of Present illness Narrative Images from the original note were not included. [address] , [address] [facility], [address] P: [phone] F: [phone] HPI Historian of HPI: patient Carol Ann Martinez is a 39 y.o. female who presents today to the Urgent Care with the following complaints and denials which have been present for 3 day(s) Pt is currently . C/O Denies Symptom Comments [x] [] Runny Nose [] [x] Difficulty Swallowing [x] [] Sore Throat [x] [] Cough [] [x] Ear Pain [] [x] Fever [] [x] Chills [x] [] Nasal Congestion [] [x] Myalgia [] [x] Sinus Pain [x] [] Sinus Pressure Additional Comments: pt has not taken any OTC medications ROS A complete system ROS was performed and negative aside from the pertinent positives noted in the HPI and PE. IH Testing: The following tests were performed PCR Strep Test Rapid COVID Test SEE TEST(S) ORDERS FOR RESULTS PHYSICAL EXAM Physical Exam Constitutional: Appearance: Normal appearance. HENT: Right Ear: Tympanic membrane normal. Left Ear: Tympanic membrane normal. Nose: Congestion and rhinorrhea present. Comments: Nasal membranes are mildly erythematous and edematous. Tender at the maxillary sinuses. Mouth/Throat: Pharynx: Posterior oropharyngeal erythema present. No oropharyngeal exudate. Neurological: Mental Status: She is alert. TREATMENT PLAN Diagnoses and all orders for this visit: Acute maxillary sinusitis, recurrence not specified (Primary) - amoxicillin (Amoxil) 875 MG tablet; 1 po bid until all taken. - fluticasone (Flonase) 50 MCG/ACT nasal spray; Administer 2 sprays into each nostril Daily as needed for rhinitis Shake gently. Before first use, prime pump. After use, clean tip and replace cap. Pharyngitis, unspecified etiology - RAPID COVID 19 ANTIGEN - STREP DNA PROBE Upper respiratory tract infection, unspecified type Take medications as prescribed. Use a humidifier when possible. May use acetaminophen or ibuprofen for pain or fever. RTO if worsening. documented in this encounter [facility] 05-23-2025 Note Date of Procedure 05/23/2025. Business Management Intern Information Fire Ranger: TRISTIAN. Start time: 2:51 PM. Stop time: 3:09 PM. PT IS NOT ALLERGIC TO ADHESIVE. Reliability Left Eye Good. Interpretation Right Eye Central defect. Left Eye Normal. Interval Change Right Eye Initial. Left Eye Better. [facility] 05-23-2025 Note Date of Procedure 05/23/2025. Quality Right Eye Good. Left Eye Good. NFL Interpretation Right Eye Temporal loss. Left Eye Normal. Ganglion Cell Layer Thickness Right Eye Diffuse loss. Left Eye Diffuse loss. Interval Change Right Eye Initial. Left Eye Initial. [facility] 05-23-2025 Note HNO ID: [id number] Author: SAEN TONEY DO Service: ? Author Type: Physician Type: Progress Notes Filed: 05/23/2025 16:35 Note Text: New patient with history of MS DISEASE SUMMARY per [facility] note 02/03/2025: Date of onset: 03/2007 Date of diagnosis of MS: 03/2007 Disease course at onset: Relapsing-Remitting Current disease course: Progressive without relapses Previous disease therapies: - IVMP and high dose oral - Betaseron [id number] - Copaxone 8727-3855 - Tysabri 2009-Summer 2019 (stopped due to planned ) - Copaxone (during ) - Ocrevus (02/28/21 through 09/25/23, d/c'd for ) Current disease therapy: Copaxone (03/2024-present) Most recent MRI brain: 01/02/23 (stable) Most recent MRI cervical spine: 01/02/23 (stable) Most recent MRI thoracic spine: 01/19/24 CSF: NA JCV: 02/14/2021 0.28, stratify negative Medical Hx: hypoglycemia; anemia EXAM: - Pupils: 4-->2 both eyes; no Afferent pupillary defect - Ortho - EOM: full both eyes; no pain with eye movement - L JOSIE with dissociated nystagmus ASSESSMENT/PLAN G35 Multiple sclerosis (HCC) (primary encounter diagnosis) 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, 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), left Comment: - OCT RNFL is asymmetric today 80 and 100 right eye and left eye respectively - GCL with diffuse loss both eyes - Ortiz visual field shows central defect right eye and normal left eye - her visual acuity in her right eye was Count fingers and HM in 2019 and 2021 and today is 20/200 - left eye remains at 20/20 without documented losses on prior exams - L JOSIE with dissociated nystagmus - continue present management with [facility] I have confirmed and edited as necessary the relevant HPI, ophthalmic history, ROS, and the neuro exam findings as obtained by others. I have seen and examined Carol Ann Martinez. I have discussed the case and the management of this patient's care with the Resident/Fellow, if applicable. I also have reviewed and agree with the assessment and plan as stated above and agree with all of its relevant components. [facility] 05-23-2025 History of Present illness Narrative New patient with history of MS DISEASE SUMMARY per [facility] note 02/03/2025: Date of onset: 03/2007 Date of diagnosis of MS: 03/2007 Disease course at onset: Relapsing-Remitting Current disease course: Progressive without relapses Previous disease therapies: - IVMP and high dose oral - Betaseron [id number] - Copaxone 6749-6260 - Tysabri 2009-Summer 2019 (stopped due to planned ) - Copaxone 6331-6948 (during ) - Ocrevus (02/28/21 through 09/25/23, d/c'd for ) Current disease therapy: Copaxone (03/2024-present) Most recent MRI brain: 01/02/23 (stable) Most recent MRI cervical spine: 01/02/23 (stable) Most recent MRI thoracic spine: 01/19/24 CSF: NA JCV: 02/14/2021 0.28, stratify negative Medical Hx: hypoglycemia; anemia EXAM: - Pupils: 4-->2 both eyes; no Afferent pupillary defect - Ortho - EOM: full both eyes; no pain with eye movement - L JOSIE with dissociated nystagmus ASSESSMENT/PLAN G35 Multiple sclerosis (HCC) (primary encounter diagnosis) 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, 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), left Comment: - OCT RNFL is asymmetric today 80 and 100 right eye and left eye respectively - GCL with diffuse loss both eyes - Ortiz visual field shows central defect right eye and normal left eye - her visual acuity in her right eye was Count fingers and HM in 2019 and 2021 and today is 20/200 - left eye remains at 20/20 without documented losses on prior exams - L JOSIE with dissociated nystagmus - continue present management with [facility] I have confirmed and edited as necessary the relevant HPI, ophthalmic history, ROS, and the neuro exam findings as obtained by others. I have seen and examined Carol Ann Martinez. I have discussed the case and the management of this patient's care with the Resident/Fellow, if applicable. I also have reviewed and agree with the assessment and plan as stated above and agree with all of its relevant components. documented in this encounter [facility] 05-02-2025 Note HNO ID: [id number] Author: LOLI JIANG APRN.LIQUE[employer]CTION PLANT OPERATOR Service: ? Author Type: Nurse Practitioner Type: Progress Notes Filed: 05/02/2025 13:22 Note Text: FOLLOW UP - PSYCHIATRIC PROGRESS NOTE Visit Type:Virtual Visit utilizing two-way audio and video for at least a portion of the visit. Consent for virtual visit obtained verbally. Confidentiality limitations with virtual visits reviewed with the patient and guardian, if present, who have accepted the risk verbally prior to proceeding with encounter. I have communicated my name and active licensure. The patient's identity and physical location were verified at the time of this visit. Either the patient or their legal sales representative raw fibers has been informed of the risks and benefits of -- and alternatives to -- treatment through a remote evaluation and consents to proceed with the evaluation remotely. Reason for Visit: Outpatient follow-up and safety monitoring of previously prescribed psychiatric medication, psychotherapy or other treatment Recording using ambient Video Passports software for draft documentation of the visit was discussed with the patient/authorized sales representative raw fibers; all questions welcomed and answered. Patient/authorized sales representative raw fibers agreed to proceed Past psychiatric medication trials: Lunesta- worked well; 2019 Trazodone- didn't help Unisom- helps a little bit Doxepin- helped with sleep; Carol Ann Martinez is a 39-year-old female with a history of MS and depression, presenting for follow-up. CC: Everything is going good. HPI: Depression: - Slight improvement in mood. - Denies suicidal ideation. - Taking Seroquel, 1 tablet at nap time and 2 tablets at night; inquires about increasing to 1 tablets at nap time and 3 tablets at night. Sleep Disturbance: - Poor sleep habits; difficulty establishing a schedule due to caring for a 6-month-old . - Taking Seroquel for sleep. Back Pain: - History of sciatica during , requiring use of a cane. - Reports recurrence of back pain; seeing a chiropractor for adjustments, which provide relief. Dietary Habits: - Enjoys eating; reports a good appetite. - Recently consulted a contract implementation analyst; scheduled for a follow-up in 2-3 weeks. - Enrolled in a program providing protein snacks twice a month. - Acknowledges insufficient water intake; working on a dietary plan. Risks and benefits of the medication, including any black box warnings, were discussed with the patient. Interval Progress: Slightly improved PATIENT DATA: Generalized Anxiety Disorder Scale (ABHILASH-7) 02/24/2025 03/07/2025 05/02/2025 ABHILASH - 7 SCORES Score 12 7 12 (0-4) minimal anxiety, (5-9) mild anxiety, (10-14) moderate anxiety, (15-21) severe anxiety Patient Health Questionnaire (PHQ-9) 03/07/2025 03/10/2025 05/02/2025 PHQ-9 Score 13 15 15 (0-4) minimal depression, (5-9) mild depression, (10-14) moderate depression, (15-19) moderately severe depression, (20-27) severe depression PROMIS Global Health 11/08/2024 02/03/2025 05/02/2025 PROMIS Global Health - (T-Scores - the mean of general population = 50. Five points is a clinically meaningful difference.) Physical T-Score 32.4 29.6 29.6 Mental T-Score 36.3 31.3 36.3 CSSR 01/08/2021 02/14/2025 03/07/2025 NI CSSR FU Suicide Risk (ED/IP Initial Screening): No Risk No Risk No Risk PAST MEDICAL HISTORY Diagnosis Date Abnormal Pap smear of cervix 2007 Anemia Costochondritis, acute 04/17/2021 Edema of lower extremity 04/17/2021 Multiple sclerosis (HCC) Seizure (HCC) POSSIBLE HISTORY OF Thyroid disease POSSIBLE HYPO IN THE PAST PAST SURGICAL HISTORY Procedure Laterality Date OFFICE LEEP 2007 Current Outpatient Medications Medication Sig Dispense Refill LOTEMAX 0.5 % eye ointment Apply small amount to eyelid at bedtime for 3 nights in a row then use as needed but sparingly. tobramycin (TOBREX) 0.3 % ophthalmic solution QUEtiapine (SEROQUEL) 25 mg tablet Take 2-3 tablets by mouth daily at bedtime. May also take 1 tablet once daily as needed. 120 tablet 2 ketotifen fumarate (ZADITOR) 0.025 % (0.035 %) ophthalmic solution Use 1 drop in both eyes two times a day. 5 mL 1 M-BLAKE PLUS 27 mg iron- 1 mg Take 1 tablet by mouth once daily. predniSONE (DELTASONE) 50 mg Take 25 pills per day. Take with food no later than 2 pm. (Patient not taking: Reported on 04/01/2025) 75 tablet 0 predniSONE (DELTASONE) 20 mg tablet Take 60mg (3 tabs) x 4 days, take 40mg (2 tabs) x 4 days, take 20mg (1 tab) x 4 days. To be taken AFTER high dose oral steroids (Patient not taking: Reported on 04/01/2025) 24 tablet 0 glatiramer (COPAXONE) 40 mg/mL injection Inject 40 mg subcutaneously every Friday, Friday, and Friday. (Patient not taking: Reported on 04/01/2025) 12 mL 5 ergocalciferol 50,000 unit capsule (VITAMIN D2, DRISDOL) TAKE 1 CAPSULE BY MOUTH ONCE EVERY WEEK 12 capsule 3 methylPREDNISolone (MEDROL DOSE-PACK) 4 mg Dose-Pack Day 1: 6 tablets Day 2 (more content not included)... [facility] 04-25-2025 History of Present illness Narrative Images from the original note were not included. Assessment/Plan Diagnoses and all orders for this visit: Dry eyes - Loteprednol Etabonate (Lotemax) 0.5 % ointment; Apply small amount to eyelid at bedtime for 3 nights in a row then use as needed but sparingly. - Dry Eyes OU -- Environmental changes to minimize dryness and exposure and the use of artificial tears were recommended. Blepharitis of upper and lower eyelids of both eyes, unspecified type - Blepharitis, posterior type OU - The patient exhibits inspissated meibomian glands. Warm compresses, lid massage and lid scrubs were recommended. documented in this encounter [facility] 04-11-2025 History of Present illness Narrative Reason for [...] Hypoglycemia Low iron MS (multiple sclerosis) ([facility]) 2006 Optic neuritis Urinary incontinence 2009 HISTORY PAST MEDICAL HISTORY SOCIAL HISTORY Past Medical History: Diagnosis Date Abnormal Pap smear of cervix 2007 Bacterial vaginosis 2019 Hypocalcemia Hypoglycemia Low iron MS (multiple sclerosis) ([facility]) 2006 [facility] - Dr. Williamson Optic neuritis multiple occurrences since 2006 - only OS until 4 yrs ago when OD involved however never got vision back in OD. Urinary incontinence 2009 Social History [...] nursing note reviewed. Exam conducted with a development intern present. Vitals: Estimated body mass index is 22.97 kg/m as calculated from the following: Height [...] of: ANSON Mon documented in this encounter [facility] 04-01-2025 Note HNO ID: [id number] Author: MELODIE STEWART MA Service: ? Author Type: Aircraft General Repair Mechanic Type: Progress Notes Filed: 04/01/2025 10:30 Note Text: Back office UA test performed. Results entered in [employer] and doctor notified. Melodie Stewart MA [facility] 03-29-2025 Note HNO ID: [id number] Author: SIMONA CAIN [facility] Service: ? Author Type: ? Type: Progress Notes Filed: 04/14/2025 12:41 Note Text: Discontinuation Assessment completed for the medication Glatiramer . Patient no longer requires [facility] Patient Management Program Services at this time for this medication. Madison Puente (Eap Consultant) Clinical pharmacist has reviewed and attested to freezer laboratory technician documentation of medication discontinuation and/or prescription transfer to alternative pharmacy. [facility] Compass Sara episode has been completed 04/12/2025 Simona Cani, MSc, MS, BCPS, BCMTMS, [facility] Clinical Specialty Pharmacist [facility] 03-23-2025 Note Education (NUTRSO) CAROL ANN MARTINEZ ([id number]) 1985 F Date Time Provider Department 03/23/25 1:45 PM ESTELLA DUTTON NUTRJUAN Reason for Visit: Patient Education [91] Reassessment [674] Primary Visit Diagnosis:Multiple sclerosis (HCC) [G35] Other Visit Diagnosis:Dietary counseling and surveillance [Z71.3] During your visit today, we recorded the following information about you: Weight 68 kg Allergies As of Date: 03/23/2025 Noted Allergy Reaction GLUTEN 03/19/2019 14 - [...] Vomiting More constipated More constipated Date Reviewed: 03/23/2025 Reviewed by: Estella Dutton RD - Fully Assessed Prescriptions as of 03/24/2025 - QUEtiapine (SEROQUEL) 25 mg tablet Take 1-2 tablets by mouth two times a day as needed (anxiety and/or insomnia). - ketotifen fumarate (ZADITOR) 0.025 % (0.035 %) ophthalmic solution Use 1 drop in both eyes two times a day. - M-BLAKE PLUS 27 mg iron- 1 mg Take 1 tablet by mouth once daily. - predniSONE (DELTASONE) 50 mg Take 25 pills per day. Take with food no later than 2 pm. - predniSONE (DELTASONE) 20 mg tablet Take 60mg (3 tabs) x 4 days, take 40mg (2 tabs) x 4 days, take 20mg (1 tab) x 4 days. To be taken AFTER high dose oral steroids - glatiramer (COPAXONE) 40 mg/mL injection Inject 40 mg subcutaneously every Friday, Friday, and Friday. - ergocalciferol 50,000 unit capsule (VITAMIN D2, DRISDOL) TAKE 1 CAPSULE BY MOUTH ONCE EVERY WEEK - methylPREDNISolone (MEDROL DOSE-PACK) 4 mg Dose-Pack Day 1: 6 tablets Day 2: 5 tablets Day 3: 4 tablets Day 4: 3 tablets Day 5: 2 tablets Day 6: 1 tablet - mometasone (ELOCON) 0.1 % cream Apply to affected area once daily. - magnesium oxide (MAG-OX) 400 mg (241.3 [...] (FLONASE) 50 mcg/actuation nasal spray Use 1 [place]ak in each nostril once daily. Encounter Status:Closed by ESTELLA DUTTON on 03/24/25 [facility] 03-23-2025 Note HNO ID: [id number] Author: ESTELLA DUTTON RD Service: ? Author Type: Registered Dietitian Type: Progress Notes Filed: 03/24/2025 09:19 Note Text: [facility] Nutrition Therapy: Virtual Consult - Re-assessment I have communicated my name and active licensure. The patient?s identity and physical location were verified at the time of this visit. Either the patient or their legal sales representative raw fibers has been informed of the risks and benefits of -- and alternatives to -- treatment through a remote evaluation and consents to proceed with the evaluation remotely. Nutrition Diagnosis: Inadequate protein intake, related to, vegetarian diet, as evidenced by diet recall. RECOMMENDED MALNUTRITION DIAGNOSIS: NO MALNUTRITION IDENTIFIED NUTRITION CARE PLAN: Nutrition Intervention 03/23/2025: Modify type and amount of food at meals and snacks - Try Stick and Play Standard vanilla samples sent - Will submit oral supplement prescription for GenPrime 1.0 if you like it. This will also help you receive more protein. - Goal is 68 grams protein per day. 2 Stick and Play shakes will provide 32 grams per day and 650 calories. Will need to receive additional protein from consuming eggs, beans, and dairy products Nutrition Monitoring AND Evaluation: PO intake, weight Need for Follow up: PRN PROGRESS: Interval History: Pt states she wants a more natural protein shake with more protein. She is eating about the same but reports she does have more energy and feels better while using Ensure. Pt has been on steroids, so she estimates she is now around 150 lbs. Weight gain is also most likely related to ONS use. Oral nutrition supplement is medically necessary to maintain adequate nutrient intakes and weight stability. She is currently receiving ~45% protein needs. Nutrition Intervention 09/22/2024: Modify type and amount of food at meals and snacks - Will submit ONS script to DME. Goal would be 2 Ensure shakes per day. - Utilize high calorie snack ideas for weight gain - Increase fluid intake as able Diet History: Breakfast - Ensure Snack - - Lunch - Ensure Snack - - Dinner - ? 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 Resting Metabolic Rate: 1374 Malnutrition Screening Significant unintentional weight loss? No Eating less than 75% of usual intake for more than 2 weeks? No Potential Signs of Inflammation: no identifiable sources Nutritional status: Food Insecurity: No Food Insecurity (02/24/2025) Hunger Vital Sign Worried About Running Out of Food in the Last Year: Never true Ran Out of Food in the Last Year: Never true Education Materials Provided: None this visit READINESS TO LEARN Cognitive ability: Alert and oriented Motivation to learn: Interested Family support: Unable to assess - Family not present Instruction provided to: Patient Patient learns best by: Multiple Methods Factors affecting learning: None Physical limitations affecting learning: None Likelihood of Adherence: Moderate Referred by: David TRIPP Billing Type: Re-assess 1 unit Total Time (mins): 10 SIGNATURE: Estella Dutton RD PATIENT NAME: Carol Ann Martinez DATE: March 23, 2025 TIME: 1:41 PM [facility] 03-23-2025 History of Present illness Narrative [facility] Nutrition Therapy: Virtual Consult - Re-assessment I have communicated my name and active licensure. The patient s identity and physical location were verified at the time of this visit. Either the patient or their legal sales representative raw fibers has been informed of the risks and benefits of -- and alternatives to -- treatment through a remote evaluation and consents to proceed with the evaluation remotely. Nutrition Diagnosis: Inadequate protein intake, related to, vegetarian diet, as evidenced by diet recall. RECOMMENDED MALNUTRITION DIAGNOSIS: NO MALNUTRITION IDENTIFIED NUTRITION CARE PLAN: Nutrition Intervention 03/23/2025: Modify type and amount of food at meals and snacks - Try Traci Ann Standard vanilla samples sent - Will submit oral supplement prescription for Traci Alvarado 1.0 if you like it. This will also help you receive more protein. - Goal is 68 grams protein per day. 2 Traci Ann shakes will provide 32 grams per day and 650 calories. Will need to receive additional protein from consuming eggs, beans, and dairy products Nutrition Monitoring & Evaluation: PO intake, weight Need for Follow up: PRN PROGRESS: Interval History: Pt states she wants a more natural protein shake with more protein. She is eating about the same but reports she does have more energy and feels better while using Ensure. Pt has been on steroids, so she estimates she is now around 150 lbs. Weight gain is also most likely related to ONS use. Oral nutrition supplement is medically necessary to maintain adequate nutrient intakes and weight stability. She is currently receiving ~45% protein needs. Nutrition Intervention 09/22/2024: Modify type and amount of food at meals and snacks - Will submit ONS script to DME. Goal would be 2 Ensure shakes per day. - Utilize high calorie snack ideas for weight gain - Increase fluid intake as able Diet History: Breakfast - Ensure Snack - - Lunch - Ensure Snack - - Dinner - ? 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 Resting Metabolic Rate: 1374 Malnutrition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 Friday. 12 mL 5 ergocalciferol 50,000 unit capsule (VITAMIN D2, DRISDOL) TAKE 1 CAPSULE BY MOUTH ONCE EVERY WEEK 12 capsule 3 methylPREDNISolone (MEDROL DOSE-PACK) 4 mg Dose-Pack Day 1: 6 tablets Day 2: 5 tablets Day 3: 4 tablets Day 4: 3 tablets Day 5: 2 tablets Day 6: 1 tablet mometasone (ELOCON) 0.1 % cream Apply to affected area once daily. 30 g 0 magnesium oxide (MAG-OX) 400 mg (241.3 mg magnesium) tablet Take 1 tablet by mouth daily at bedtime. 30 tablet 5 chol (more content not included)... [facility] 02-11-2025 Telephone encounter Note Collaborated with the patients provider, recommendations received and sent to patient in MyChart. [facility] 02-11-2025 Miscellaneous Notes Collaborated with the patients provider, recommendations received and [facility] - We are still moving forward with ocrevus - we have insurance authorization, just need to confirm safety with the lab work - Ocrevus is OK to receive while breast feeding but I want her to connect with her electric range servicer as her child may require consideration with vaccine timing - We can consider fatigue medications such as modafinil but at last discussion we were wanting to connect with psychiatry as mood was likely biggest contributor, in addition to recent delivery. Limited information on modafinil and breast feeding so would also want patient to connect with electric range servicer. In the mean time agree with continuing vitamin D, B12, and iron - I connected with nutrition and we re-sent the prescription in for the shakes on Friday - Unfortunately, no medications for brain fog but hopeful with improved mood and fatigue/sleep we could see some improvement. Moving forward would recommend reconnecting with cognitive therapy (order previously placed) Tor Hernandez APRN.CNP February 11, 2025 2:18 PM Provider requested we get the remaining lab results for this patient because we only received the CBC. I called [facility] at [phone]. They stated they also received a CBC order. I re faxed everything to them and they will get the rest re-drawn. I also notified the patient. [facility]: Patient has additional follow up questions: Are we still moving forward with Ocrevus? She is still nursing, is Ocrevus okay? Always fatigued, exhausted, tired - anything besides B vitamins that could help? Update on Nutritional Shakes after speaking to configuration developer? Anything for memory, very foggy? Normal priority message forwarded to [facility] provider team for review related to visit follow up question. documented in this encounter [facility] 02-11-2025 Telephone encounter Note - We are still moving forward with ocrevus - we have insurance authorization, just need to confirm safety with the lab work - Ocrevus is OK to receive while breast feeding but I want her to connect with her electric range servicer as her child may require consideration with vaccine timing - We can consider fatigue medications such as modafinil but at last discussion we were wanting to connect with psychiatry as mood was likely biggest contributor, in addition to recent delivery. Limited information on modafinil and breast feeding so would also want patient to connect with electric range servicer. In the mean time agree with continuing vitamin D, B12, and iron - I connected with nutrition and we re-sent the prescription in for the shakes on Friday - Unfortunately, no medications for brain fog but hopeful with improved mood and fatigue/sleep we could see some improvement. Moving forward would recommend reconnecting with cognitive therapy (order previously placed) Tor Hernandez APRN.TREE February 11, 2025 2:18 PM [facility] 02-11-2025 Telephone encounter Note Provider requested we get the remaining lab results for this patient because we only received the CBC. I called [facility] at [phone]. They stated they also received a CBC order. I re faxed everything to them and they will get the rest re-drawn. I also notified the patient. [facility]: Patient has additional follow up questions: Are we still moving forward with Ocrevus? She is still nursing, is Ocrevus okay? Always fatigued, exhausted, tired - anything besides B vitamins that could help? Update on Nutritional Shakes after speaking to configuration developer? Anything for memory, very foggy? Normal priority message forwarded to [facility] provider team for review related to visit follow up question. [facility] 02-10-2025 History of Present illness Narrative Radiology Service Progress Note DATE OF SERVICE: February 10, 2025 TIME: 2:33 PM PATIENT IDENTITY VERIFICATION COMPLETED USING TWO (2) STANDARD IDENTIFIERS: Name and Date of confirmed by patient verbally. FALL SCREENING: Has the patient had 2 falls in the last year or 1 fall with injury or currently using an Ambulatory Assistive Device (Walker, Cane, Wheelchair, Crutches, etc.)? No PATIENT GENDER DATA: Assigned female at . status: : No status: NO. PATIENT RELEVANT IMPLANT DATA REVIEWED: Yes PATIENT PRESENTS WITH AN IMPLANTABLE OR ATTACHED PRESIDING STEWARD: No ALLERGIES: Reviewed and unchanged CONTRAST ALLERGY: NO. EXAM: MRI - CONTRAST TYPE: GROUP II PERIPHERAL IV DATA: Ambulatory: A peripheral IV was started in the Left antecubital site with a Butterfly: 23 gauge. RADIOLOGY DEPARTMENT: MR; Exam(s) Completed: Head: Multiple Sclerosis Spine: Cervical spine and Thoracic spine SIGNATURE: SHANNON Toscano PATIENT NAME: Carol Ann Martinez DATE: February 10, 2025 TIME: 2:33 PM documented in this encounter [facility] 02-10-2025 Note HNO ID: [id number] Author: BARON HERNANDEZ MRI Tech Service: ? Author Type: Technologist Type: Progress Notes Filed: 02/10/2025 15:27 Note Text: Radiology Service Progress Note DATE OF SERVICE: February 10, 2025 TIME: 2:33 PM PATIENT IDENTITY VERIFICATION COMPLETED USING TWO (2) STANDARD IDENTIFIERS: Name and Date of confirmed by patient verbally. FALL SCREENING: Has the patient had 2 falls in the last year or 1 fall with injury or currently using an Ambulatory Assistive Device (Walker, Cane, Wheelchair, Crutches, etc.)? No PATIENT GENDER DATA: Assigned female at . status: : No status: NO. PATIENT RELEVANT IMPLANT DATA REVIEWED: Yes PATIENT PRESENTS WITH AN IMPLANTABLE OR ATTACHED PRESIDING STEWARD: No ALLERGIES: Reviewed and unchanged CONTRAST ALLERGY: NO. EXAM: MRI - CONTRAST TYPE: GROUP II PERIPHERAL IV DATA: Ambulatory: A peripheral IV was started in the Left antecubital site with a Butterfly: 23 gauge. RADIOLOGY DEPARTMENT: MR; Exam(s) Completed: Head: Multiple Sclerosis Spine: Cervical spine and Thoracic spine SIGNATURE: Baron Hernandez bar tacker PATIENT NAME: Carol Ann Martinez DATE: February 10, 2025 TIME: 2:33 PM [facility] 02-08-2025 History of Present illness Narrative [facility] [...] been reviewed prior to dispensing the medication. The patient is clinically stable and is achieving their treatment goals as per the most recent neurology encounter[02/03/2025] Simona Cain MSc, MS, BCPS, BCMTMS, [facility] Clinical Specialty Pharmacist [facility] Specialty Pharmacy Business Management Intern Assessment Patient confirmed: Yes Med/dose confirmed: Yes Supplies needed: No supplies needed Missed doses: No Estimated days supply on hand: (a week or less) Next cycle/dose due: 02/09/25 Copay amount: 0 Payment confirmed: Yes Delivery method: FedEx Signature required: Waived on patient request Delivery address: [address] [place] [address] Delivery date: 02/11/25 Questions or concerns for the pharmacist?: No Did you have any side effects believed to be related to this medication, that resulted in hospitalization?: No Current Outpatient Medications on File Prior to Visit Medication Sig predniSONE (DELTASONE) 50 mg Take 25 pills per day. Take with food no later than 2 pm. famotidine (PEPCID) 20 mg tablet Take 1 tablet by mouth two times a day. While on steroids predniSONE (DELTASONE) 20 mg tablet Take 60mg (3 tabs) x 4 days, take 40mg (2 tabs) x 4 days, take 20mg (1 tab) x 4 days. To be taken AFTER high dose oral steroids glatiramer (COPAXONE) 40 mg/mL injection Inject 40 mg subcutaneously every Friday, Friday, and Friday. ergocalciferol 50,000 unit capsule (VITAMIN D2, DRISDOL) TAKE 1 CAPSULE BY MOUTH ONCE EVERY WEEK methylPREDNISolone (MEDROL DOSE-PACK) 4 mg Dose-Pack Day 1: 6 tablets Day 2: 5 tablets Day 3: 4 tablets Day 4: 3 tablets Day 5: 2 tablets Day 6: 1 tablet mometasone (ELOCON) 0.1 % cream Apply to affected area once daily. magnesium oxide (MAG-OX) 400 mg (241.3 mg [...] (FLONASE) 50 mcg/actuation nasal spray Use 1 [place] in each nostril once daily. No current facility-administered medications on file prior to visit. [facility] SPECIALTY CLINICAL ASSESSMENT - NEUROLOGY V7: [...] without relapses Previous disease therapies: - Betaseron [id number] - Copaxone 2559-3703 - Tysabri 2009-Summer 2019 (stopped due to [...] Treatment Duration: No information available Madison Puente (Eap Consultant) documented in this encounter [facility] 02-08-2025 Note HNO ID: [id number] Author: SIMONA CAIN RPh Service: ? Author Type: ? Type: Progress Notes Filed: 02/08/2025 14:46 Note Text: [facility] Specialty Refill Assessment Medication(s): [...] been reviewed prior to dispensing the medication. The patient is clinically stable and is achieving their treatment goals as per the most recent neurology encounter[02/03/2025] Simona Cain, Jose Martin, MS, BCPS, BCMTMS, [facility] Clinical Specialty Pharmacist [facility] Specialty Pharmacy Business Management Intern Assessment Patient confirmed: Yes Med/dose confirmed: Yes Supplies needed: No supplies needed Missed doses: No Estimated days supply on hand: (a week or less) Next cycle/dose due: 02/09/25 Copay amount: 0 Payment confirmed: Yes Delivery method: FedEx Signature required: Waived on patient request Delivery address: [address] [place] [address] Delivery date: 02/11/25 Questions or concerns for the pharmacist?: No Did you have any side effects believed to be related to this medication, that resulted in hospitalization?: No Current Outpatient Medications on File Prior to Visit Medication Sig predniSONE (DELTASONE) 50 mg Take 25 pills per day. Take with food no later than 2 pm. famotidine (PEPCID) 20 mg tablet Take 1 tablet by mouth two times a day. While on steroids predniSONE (DELTASONE) 20 mg tablet Take 60mg (3 tabs) x 4 days, take 40mg (2 tabs) x 4 days, take 20mg (1 tab) x 4 days. To be taken AFTER high dose oral steroids glatiramer (COPAXONE) 40 mg/mL injection Inject 40 mg subcutaneously every Friday, Friday, and Friday. ergocalciferol 50,000 unit capsule (VITAMIN D2, DRISDOL) TAKE 1 CAPSULE BY MOUTH ONCE EVERY WEEK methylPREDNISolone (MEDROL DOSE-PACK) 4 mg Dose-Pack Day 1: 6 tablets Day 2: 5 tablets Day 3: 4 tablets Day 4: 3 tablets Day 5: 2 tablets Day 6: 1 tablet mometasone (ELOCON) 0.1 % cream Apply to affected area once daily. magnesium oxide (MAG-OX) 400 mg (241.3 mg [...] (FLONASE) 50 mcg/actuation nasal spray Use 1 [place] in each nostril once daily. No current facility-administered medications on file prior to visit. [facility] RX SPECIALTY CLINICAL ASSESSMENT - NEUROLOGY [...] without relapses Previous disease therapies: - Betaseron [id number] - Copaxone 4136-5643 - Tysabri 2009-Summer 2019 (stopped due to [...] Start Date Info: No information available Est. Estimate (more content not included)... [facility] 02-08-2025 Telephone encounter Note 02/08/25. LVM and call center # for Pt to reschedule MRIs any day but Sundays. Brain MRI should be scheduled ANDER. CS and TS MRIs can be scheduled at a later date if needed. WS [facility] 02-08-2025 Miscellaneous Notes 02/08/25. LVM and call center # for Pt to reschedule MRIs any day but Sundays. Brain MRI should be scheduled ANDER. CS and TS MRIs can be scheduled at a later date if needed. WS documented in this encounter [facility] 02-04-2025 Note HNO ID: [id number] Author: TOR HERNANDEZ APRN.TREE Service: ? Author Type: Nurse Practitioner Type: Progress Notes Filed: 03/02/2025 09:54 Note Text: Outside labs received Colleted 02/03/25 CBC unremarkable Awaiting remaining labs Tor Hernandez APRN.CNP February 04, 2025 9:27 AM CMP with AST 10 (L) otherwise unremarkable Vitamin D 32.5 Still awaiting TB, VZV, hep remote panel, IGG, IGM Tor Hernandez APRN.LIQUEFACTION PLANT OPERATOR February 14, 2025 11:54 AM IGG 1075 IGM 149 VZV reactive (normal) Hep panel normal Still awaiting TB Tor Hernandez APRN.LIQUEFACTION PLANT OPERATOR February 15, 2025 8:40 AM TB negative Tor Hernandez APRN.CNP March 02, 2025 9:54 AM [facility] 02-04-2025 History of Present illness Narrative Outside labs received Colleted 02/03/25 CBC unremarkable Awaiting remaining labs Tor Hernandez APRN.CNP February 04, 2025 9:27 AM documented in this encounter [facility] 02-03-2025 Instructions Tor Hernandez APRN.CNP - 02/03/2025 10:49 AM EDT PLAN: - Continue copaxone for now - Plan to transition back to [facility] (new [facility] orders and start up checklist initiated) - pre-DMT labs - MRI brain, cervical, thoracic - High dose oral prednisone x 3 with taper, Pepcid - Consult [place] psychiatry re: mood and ?PPD - Follow up with ophthalmology - Continue to consider PT and OT - I will send a message to nutrition re: shakes - Follow up in 1 month documented in this encounter [facility] 02-03-2025 History of Present illness Narrative Images from the original note were not included. [facility] FOLLOWUP/ESTABLISHED VIRTUAL PATIENT VISIT PRINCIPAL NEUROLOGIC DIAGNOSIS: Multiple Sclerosis DISEASE SUMMARY Date of onset: 03/2007 Date of diagnosis of MS: 03/2007 Disease course at onset: Relapsing-Remitting Current disease course: Progressive without relapses Previous disease therapies: - IVMP and high dose oral - Betaseron [id number] - Copaxone 1513-6309 - Tysabri 2009-Summer 2019 (stopped due to planned ) - Copaxone 5838-8253 (during ) - [facility] (02/28/21 through 09/25/23, d/c'd for ) Current disease therapy: Copaxone (03/2024-present) Most recent MRI brain: 01/02/23 (stable) Most recent MRI cervical spine: 01/02/23 (stable) Most recent MRI thoracic spine: 01/19/24 CSF: NA JCV: 02/14/2021 0.28, stratify negative Brief Disease History: - 2006 lower extremity numbness evolving over 3 weeks following occipital relase - 0610-2608 recurrent OS ON - 5736-5853 several relapses including L numbness, weakness, constipation, urinary urgency - 2019 R weakness and numbness needing a wheelchair, hospitalized at [facility] (off Tysabri x3 months due to planning ). Also had OD vision loss at this time. At this time also notes substantial mold exposure due to it being all over her apt (has since moved). CHIEF COMPLAINT: urgent visit Usual treating team: Esther/David Today's visit is being completed virtually over meevl. I have communicated my name and active licensure. The patient's identity and physical location were verified at the time of this visit. Either the patient or their legal sales representative raw fibers has been informed of the risks and benefits of -- and alternatives to -- treatment through a remote evaluation and consents to proceed with the evaluation remotely. Patient consented to proceed with virtual visit. The patient is accompanied by her 2 children. The patient was last seen 06/09/24, currently taking Copaxone. Since the patient's last visit the patient reports overall feeling worse. Issues with current therapy: Tolerating medication without side effects. INTERVAL HISTORY: Delivered baby boy 10/14/24, uncomplicated delivery. Is exclusively , interested in pumping in the near future Continued Copaxone throughout and is still taking it, denies missed doses Lives alone with her 2 children Has a BASE REMOVER who helps with cleaning Not on control, considering Nexplanon or Mirena. Hoping for more children in ~1+ year Worsening symptoms over the last 1 week or so Current symptoms: Fatigue - increased dramatically Numbness to hands and feet is increased. Has difficulty feeling brake pedal when driving due to numbness Gait - I can barely walk . Attributes to numbness and fatigue. Not needing a wheelchair like with her last relapse but may need a rollator Mood - wonders if she has post depression as she is overwhelmed, difficulty sleeping, increased irritation, decreased concentration are the most noticeable. Saw OB at 6 week check up but next appt is not until April. Has a local counselor Vision unchanged over the last 3 years, stable. Still not good, still vision loss OD . Working with ophthalmology and wears glasses. Neuro-QoL Functions (higher=better functioning) Flowsheet Row Distance [facility] from 02/03/2025 in [facility] Social Work from 01/21/2024 in [facility] Office Visit from 07/23/2023 in [facility] Upper Extremity Domain T Score 29 28 28.29 Lower Extremity Domain T Score 36 36 36.94 Cognitive Function Domain T Score 30 38 30.7 Positive Affect Well Being T Score -- -- -- Ability To Participate In Social Roles T Score 39 42 39.9 Satisfaction With Social Roles T Score 39 40 39.66 Neuro-QoL Symptoms (higher=worse symptoms) Flowsheet Row [facility] from 02/03/2025 in [facility] Social Work from 01/21/2024 in [facility] Office Visit from 07/23/2023 in [facility] Sleep Domain T Score 68 66 69.2 Fatigue Domain T Score 65 66 64.84 Anxiety Domain T Score 48 49 44.34 Depression Domain T Score 50 46 43.71 Stigma Domain T Score 61 59 51.47 Emotional Behavior Dyscontrol T Score -- -- -- PAST HISTORY: has a past medical history of Abnormal Pap smear of cervix (2007), Anemia, Costochondritis, acute (04/17/2021), Edema of lower extremity (04/17/2021), Multiple sclerosis ([facility]), Seizure ([facility]), and Thyroid disease. She has no past medical history of Asthma, Blood dyscrasia, Breast disorder, Chlamydia, Chronic kidney disease, Complication of anesthesia, Coronary artery disease, Diabetes ([facility]), Diabetes, gestational, Gonorrhea, Herpes simplex virus (HSV) infection, History of pre-eclampsia in prior , currently , HIV infection ([facility]), Hypertension, Infertility, female, Liver disease, Malignant hyperthermia due to anesthesia, Mental disorder, Placental abruption, depression, hemorrhage, Rh incompatibility, Sickle cell anemia ([facility]), Syphilis, or Systemic lupus erythematosus ([facility]). has a current medication list which includes the following prescription(s): prednisone, famotidine, prednisone, iv contrast, iv contrast, iv contrast, glatiramer, ergocalciferol (vitamin d2), methylprednisolone, mometasone, magnesium oxide, cholecalciferol, ketoconazole, vitamin b complex with [id number] renal vitamins, ferrous sulfate, multiple vitamin-minerals, ketoconazole, tizanidine, vitamin b complex, and fluticasone. EXAM: LMP 12/21/2023 (Exact Date) MSPT Results Flowsheet Row Office Visit from 07/23/2023 in [facility] Office Visit from 01/17/2023 in [facility] Processing Speed Total Number Correct 52 51 Processing Speed Z score 0.2 0.07 Dominant hand -- -- MDT Left Hand Time -- 45.47 MDT Right Hand Time -- 37.42 Walking Speed Test (25 feet) 10.91 7.88 Memory Z Score -- -- General Appearance: well appearing, in no acute distress Mental status evaluation during the interview and examination showed normal level of consciousness, orientation, language, memory, praxis, and higher intellectual function Affect: Normal RESULTS: CBC + Diff Component Value Date WBC 8.26 07/19/2024 HB 12.4 07/19/2024 HCT 39.3 07/19/2024 PLT 187 07/19/2024 ABSLYMPH 1.58 07/19/2024 No results found for: VITD25 CMP Component Value Date AST 18 07/19/2024 GLUC 58 (L) 07/19/2024 BUN 8 07/19/2024 CREAT 0.62 07/19/2024 NA 136 07/19/2024 K 3.9 07/19/2024 CHLOR 104 07/19/2024 ALT 15 07/19/2024 MRI Results Discrete MRI Results Component Value [...] 01/02/2023 ASSESSMENT: Carol Ann Martinez is a 39 year old female with Multiple Sclerosis. She is currently on Copaxone due to . She delivered her boy 10/14/24 and has felt generally well until this last week. She presents today for an urgent visit for worsening symptoms. Comprehensive physical exam limited given nature of virtual visit. She reports increased fatigue, worsening gait, and increased numbness to hands and feet. She has had significant relapses after in the past and although exclusively , is reasonable that this is indicative of new MS activity in light of post period. We will treat with oral steroids (deferred IVMP due to children, transportation, and geographical location from [facility] facilities). Reviewed with patient risks and benefits of steroids including GI upset, irritability, insomnia, changes in vision, increase in blood sugar, osteoporosis, avascular necrosis, and increased risk of serious infections that could lead to hospitalization or even . Will obtain updated imaging and plan to transition back to [facility]. Remainder of plan as below. MRI of the brain and/or spinal cord [...] would change medical management. PLAN: - Continue copaxone for now - Plan to transition back to [facility] (new [facility] orders and start up checklist initiated) - pre-DMT labs - MRI brain, cervical, thoracic - High dose oral prednisone x 3 with taper, Pepcid - Consult [place] psychiatry re: mood and ?PPD - Follow up with ophthalmology - Continue to consider PT and OT - I will send a message to nutrition re: shakes - Follow up in 1 month [facility] on 02/03/25 MRI BRAIN WO/W IVCON MRI CERVICAL SPINE WO/W IVCON MRI THORACIC SPINE WO/W IVCON COMPLETE BLOOD COUNT AND DIFFERENTIAL COMPREHENSIVE METABOLIC PANEL IMMUNOGLOBULIN G IMMUNOGLOBULIN M HEP REMOTE PANEL BL VARICELLA ZOSTER IGG BLOOD TB SCREEN CONSULT TO PSYCHIATRY Patient Health Education Discussed at Visit: Emotional Health/Wellness, Risks and Common side effects of MS medications, Stress management, and Vitamin D supplementation Follow-up: In 1 month at [place] with [facility] APC I spent a total of 54 minutes on the date of the service which included preparing to see the patient, [id number] patient care, completing clinical documentation, obtaining and/or reviewing separately obtained history, performing a medically appropriate examination, counseling and educating the patient/family/caregiver, ordering medications, tests, or procedures, communicating with other HCPs (not separately reported), and care coordination (not separately reported). Tor Hernandez APRN.CNP [facility] for Multiple Sclerosis documented in this encounter [facility] 02-03-2025 Note HNO ID: [id number] Author: TOR HERNANDEZ APRN.CNP Service: ? Author Type: Nurse Practitioner Type: Progress Notes Filed: 02/18/2025 08:34 Note Text: [facility] FOLLOWUP/ESTABLISHED VIRTUAL PATIENT VISIT PRINCIPAL NEUROLOGIC DIAGNOSIS: Multiple Sclerosis DISEASE SUMMARY Date of onset: 03/2007 Date of diagnosis of MS: 03/2007 Disease course at onset: Relapsing-Remitting Current disease course: Progressive without relapses Previous disease therapies: - IVMP and high dose oral - Betaseron 0651-0726 - Copaxone - Tysabri 2009-Summer 2019 (stopped [...] over 3 weeks following occipital relase - 0506-7042 recurrent OS ON - 6877-9997 several relapses including L numbness, weakness, constipation, urinary urgency - 2019 R weakness and numbness needing a wheelchair, hospitalized at [facility] (off Tysabri x3 months due to planning ). Also had OD vision loss at this time. At this time also notes substantial mold exposure due to it being all over her apt (has since moved). CHIEF COMPLAINT: urgent visit Usual treating team: Christina Today's visit is being completed virtually over meevl. I have communicated my name and active licensure. The patient's identity and physical location were verified at the time of this visit. Either the patient or their legal sales representative raw fibers has been informed of the risks and benefits of -- and alternatives to -- treatment through a remote evaluation and consents to proceed with the evaluation remotely. Patient consented to proceed with virtual visit. The patient is accompanied by her 2 children. The patient was last seen 06/09/24, currently taking Copaxone. Since the patient's last visit the patient reports overall feeling worse. Issues with current therapy: Tolerating medication without side effects. INTERVAL HISTORY: Delivered baby boy 10/14/24, uncomplicated delivery. Is exclusively , interested in pumping in the near future Continued Copaxone throughout and is still taking it, denies missed doses Lives alone with her 2 children Has a BASE REMOVER who helps with cleaning Not on control, considering Nexplanon or Mirena. Hoping for more children in ~1+ year Worsening symptoms over the last 1 week or so Current symptoms: Fatigue - increased dramatically Numbness to hands and feet is increased. Has difficulty feeling brake pedal when driving due to numbness Gait - I can barely walk . Attributes to numbness and fatigue. Not needing a wheelchair like with her last relapse but may need a rollator Mood - wonders if she has post depression as she is overwhelmed, difficulty sleeping, increased irritation, decreased concentration are the most noticeable. Saw OB at 6 week check up but next appt is not until April. Has a local counselor Vision unchanged over the last 3 years, stable. Still not good, still vision loss OD . Working with ophthalmology and wears glasses. Neuro-QoL Functions (higher=better functioning) Flowsheet Row Distance Health from 02/03/2025 in [facility] Social Work from 01/21/2024 in [facility] Office Visit from 07/23/2023 in [facility] Upper Extremity Domain T Score 29 28 28.29 Lower Extremity Domain T Score 36 36 36.94 Cognitive Function Domain T Score 30 38 30.7 Positive Affect Well Being T Score -- -- -- Ability To Participate In Social Roles T Score 39 42 39.9 Satisfaction With Social Roles T Score 39 40 39.66 Neuro-QoL Symptoms (higher=worse symptoms) Flowsheet Row Distance Health from 02/03/2025 in [facility] Social Work from 01/21/2024 in [facility] Office Visit from 07/23/2023 in [facility] Sleep Domain T Score 68 66 69.2 Fatigue Domain T Score 65 66 64.84 Anxiety Domain T Score 48 49 44.34 Depression Domain T Score 50 46 43.71 Stigma Domain T Score 61 59 51.47 Emotional Behavior Dyscontrol T Score -- -- -- PAST HISTORY: has a past medical history of Abnormal Pap smear of cervix (2007), Anemia, Costochondritis, acute (04/17/2021), Edema of lower extremity (04/17/2021), Multiple sclerosis ([facility]), Seizure ([facility]), and Thyroid disease. She has no past medical history of Asthma, Blood dyscrasia, Breast disorder, Chlamydia, Chronic kidney disease, Complication of anesthesia, Coronary artery disease, Diabetes ([facility]), Diabetes, gestational, Gonorrhea, Herpes simplex virus (HSV) infection, History of pre-eclampsia in prior , currently , HIV infection ([facility]), Hypertension, Infertility, female, Liver disease, (more content not included)... [facility] 02-02-2025 Telephone encounter Note Spoke to patient Patient says last Friday she noticed some worsening symptoms Experiencing numbness in both feet and hands Numbness in feet has gotten so bad that sometimes she has to put her car in park at stop lights because she cannot tell if she is pressing on the pedals Also having issues with her memory Says these are not new symptoms but definitely seem worse then they have in the past No recent or current infections, illness, or UTIs Delivered a baby boy 3 months ago and has a 4 year old at home She is a single parent Has some increased stress related to of her son and changes in her daily routine Also decreased sleep related to new baby in the home Last appt was a virtual visit 06/09/25 Advised patient she is overdue for a follow up Patient in [place] and unable to drive to [place] Agreeable to a virtual visit with Iona Hernandez 02/03 at 9:30am Scheduling paged [facility] 02-02-2025 Miscellaneous Notes Spoke to patient Patient says last Friday she noticed some worsening symptoms Experiencing numbness in both feet and hands Numbness in feet has gotten so bad that sometimes she has to put her car in park at stop lights because she cannot tell if she is pressing on the pedals Also having issues with her memory Says these are not new symptoms but definitely seem worse then they have in the past No recent or current infections, illness, or UTIs Delivered a baby boy 3 months ago and has a 4 year old at home She is a single parent Has some increased stress related to of her son and changes in her daily routine Also decreased sleep related to new baby in the home Last appt was a virtual visit 06/09/25 Advised patient she is overdue for a follow up Patient in [place] and unable to drive to [place] Agreeable to a virtual visit with Iona Hernandez 02/03 at 9:30am Scheduling paged [place] Call Name of caller : Carol Ann Martinez Relationship to patient: Self Return call phone number : [phone] Reason for call : Symptoms : Brief description of symptoms : Patient calling to say having numbness in her hands and feet and having a hard time to walk and having memory issues, feels like that is getting worse as well. She said she was driving over the weekend and had to puller through because her feet were numb and had a hard time stopping the car. She had a baby boy 3 months ago so not sure if that is related. Please call to discuss further. When did symptoms start : This past weekend started, getting worse now. documented in this encounter [facility] 02-02-2025 Telephone encounter Note [place] Call Name of caller : Carol Ann Martinez Relationship to patient: Self Return call phone number : [phone] Reason for call : Symptoms : Brief description of symptoms : Patient calling to say having numbness in her hands and feet and having a hard time to walk and having memory issues, feels like that is getting worse as well. She said she was driving over the weekend and had to puller through because her feet were numb and had a hard time stopping the car. She had a baby boy 3 months ago so not sure if that is related. Please call to discuss further. When did symptoms start : This past weekend started, getting worse now. [facility] Work Phone: 01-11-2025 History of Present illness Narrative [facility] [...] been reviewed prior to dispensing the medication. Simona Cain MSc, MS, BCPS, BCMTMS, [facility] Clinical Specialty Pharmacist [facility] Specialty Pharmacy Business Management Intern Assessment Patient confirmed: Yes Med/dose confirmed: Yes Supplies needed: No supplies needed Missed doses: No Estimated days supply on hand: (not sure) Next cycle/dose due: 01/12/25 Copay amount: 0 Payment confirmed: Yes Delivery method: FedEx Signature required: Waived on patient request Delivery address: [address] [place] [address] Delivery date: 01/14/25 Questions or concerns for the pharmacist?: No Did you have any side effects believed to be related to this medication, that resulted in hospitalization?: No Current Outpatient Medications on File Prior to Visit Medication Sig glatiramer (COPAXONE) 40 mg/mL injection Inject 40 mg subcutaneously every Friday, Friday, and Friday. ergocalciferol 50,000 unit capsule (VITAMIN D2, DRISDOL) TAKE 1 CAPSULE BY MOUTH ONCE EVERY WEEK methylPREDNISolone (MEDROL DOSE-PACK) 4 mg Dose-Pack Day 1: 6 tablets Day 2: 5 tablets Day 3: 4 tablets Day 4: 3 tablets Day 5: 2 tablets Day 6: 1 tablet mometasone (ELOCON) 0.1 % cream Apply to affected area once daily. magnesium oxide (MAG-OX) 400 mg (241.3 mg [...] (FLONASE) 50 mcg/actuation nasal spray Use 1 Emmonak in each nostril once daily. No current facility-administered medications on file prior to visit. [facility] RX SPECIALTY CLINICAL ASSESSMENT - NEUROLOGY [...] without relapses Previous disease therapies: - Betaseron 9727-7831 - Copaxone 1706-6367 - Tysabri 2009-Summer 2019 (stopped due to planned ) - Copaxone 1442-0530 (during ) - Ocrevus (02/28/21 through 09/25/23, [...] Treatment Duration: No information available Madison Puente (Eap Consultant) documented in this encounter [facility] 01-11-2025 Note HNO ID: [id number] Author: SIMONA CAIN RPh Service: ? Author Type: ? Type: Progress Notes Filed: 01/11/2025 10:58 Note Text: [facility] Refill Assessment Medication(s): [...] been reviewed prior to dispensing the medication. Simona Cain MSc, MS, BCPS, BCMTMS, [facility] Clinical Specialty Pharmacist [facility] Business Management Intern Assessment Patient confirmed: Yes Med/dose confirmed: Yes Supplies needed: No supplies needed Missed doses: No Estimated days supply on hand: (not sure) Next cycle/dose due: 01/12/25 Copay amount: 0 Payment confirmed: Yes Delivery method: FedEx Signature required: Waived on patient request Delivery address: [address] [place], [place] [address] Delivery date: 01/14/25 Questions or concerns for the pharmacist?: No Did you have any side effects believed to be related to this medication, that resulted in hospitalization?: No Current Outpatient Medications on File Prior to Visit Medication Sig glatiramer (COPAXONE) 40 mg/mL injection Inject 40 mg subcutaneously every Friday, Friday, and Friday. ergocalciferol 50,000 unit capsule (VITAMIN D2, DRISDOL) TAKE 1 CAPSULE BY MOUTH ONCE EVERY WEEK methylPREDNISolone (MEDROL DOSE-PACK) 4 mg Dose-Pack Day 1: 6 tablets Day 2: 5 tablets Day 3: 4 tablets Day 4: 3 tablets Day 5: 2 tablets Day 6: 1 tablet mometasone (ELOCON) 0.1 % cream Apply to affected area once daily. magnesium oxide (MAG-OX) 400 mg (241.3 mg [...] (FLONASE) 50 mcg/actuation nasal spray Use 1 Emmonak in each nostril once daily. No current facility-administered medications on file prior to visit. [facility] RX SPECIALTY CLINICAL ASSESSMENT - NEUROLOGY [...] without relapses Previous disease therapies: - Betaseron 0307-1865 - Copaxone 8660-2152 - Tysabri 2009-Summer 2019 (stopped due to planned ) - Copaxone 8118-2371 (during ) - Ocrevus (02/28/21 through 09/25/23, [...] Treatment Duration: No information available Madison Puente (Eap Consultant) [facility] 12-14-2024 History of Present illness Narrative [facility] [...] been reviewed prior to dispensing the medication. Business Management Intern Assessment Patient confirmed: Yes Med/dose confirmed: Yes Supplies needed: No supplies needed Missed doses: No Estimated days supply on hand: (maybe 4) Next cycle/dose due: 12/15/24 Copay amount: 0 Payment confirmed: Yes Delivery method: FedEx Signature required: Waived on patient request Delivery address: [address] [place] [address] Delivery date: 12/23/24 Questions or concerns for the pharmacist?: No Current Outpatient Medications on File Prior to Visit Medication Sig [START ON 12/15/2024] glatiramer (COPAXONE) 40 mg/mL injection Inject 40 mg subcutaneously every Friday, Friday, and Friday. ergocalciferol 50,000 unit capsule (VITAMIN D2, DRISDOL) TAKE 1 CAPSULE BY MOUTH ONCE EVERY WEEK methylPREDNISolone (MEDROL DOSE-PACK) 4 mg Dose-Pack Day 1: 6 tablets Day 2: 5 tablets Day 3: 4 tablets Day 4: 3 tablets Day 5: 2 tablets Day 6: 1 tablet mometasone (ELOCON) 0.1 % cream Apply to affected area once daily. magnesium oxide (MAG-OX) 400 mg (241.3 mg [...] (FLONASE) 50 mcg/actuation nasal spray Use 1 Emmonak in each nostril once daily. No current facility-administered medications on file prior to visit. [facility] RX SPECIALTY CLINICAL ASSESSMENT - NEUROLOGY V7: Assessment to use: Refill Date of influenza vaccination reminder: 07/21/2024 Date of most recent vaccination assessment: 07/21/2024 Treatment Plan Information: Date of onset: 03/2007 Date of diagnosis of MS: 03/2007 Disease course at onset: Relapsing-Remitting Current disease course: Progressive without relapses Previous disease therapies: - Betaseron [id number] - Copaxone 0697-4623 - Tysabri 2009-Summer 2019 (stopped due to planned ) - Copaxone 7566-9220 (during ) - Ocrevus (02/28/21 through 09/25/23, [...] Treatment Duration: No information available Madison Puente ([employer]) documented in this encounter [facility] 12-14-2024 Note HNO ID: [id number] Author: SIMONA CAIN RPh Service: ? Author Type: ? Type: Progress Notes Filed: 12/20/2024 13:36 Note Text: [facility] Refill Assessment Medication(s): [...] been reviewed prior to dispensing the medication. Simona Cain, MSc, MS, BCPS, BCMTMS, [facility] Clinical Specialty Pharmacist [facility] Business Management Intern Assessment Patient confirmed: Yes Med/dose confirmed: Yes Supplies needed: No supplies needed Missed doses: No Estimated days supply on hand: (maybe 4) Next cycle/dose due: 12/15/24 Copay amount: 0 Payment confirmed: Yes Delivery method: FedEx Signature required: Waived on patient request Delivery address: [address] [place] [address] Delivery date: 12/23/24 Questions or concerns for the pharmacist?: No Current Outpatient Medications on File Prior to Visit Medication Sig [START ON 12/15/2024] glatiramer (COPAXONE) 40 mg/mL injection Inject 40 mg subcutaneously every Friday, Friday, and Friday. ergocalciferol 50,000 unit capsule (VITAMIN D2, DRISDOL) TAKE 1 CAPSULE BY MOUTH ONCE EVERY WEEK methylPREDNISolone (MEDROL DOSE-PACK) 4 mg Dose-Pack Day 1: 6 tablets Day 2: 5 tablets Day 3: 4 tablets Day 4: 3 tablets Day 5: 2 tablets Day 6: 1 tablet mometasone (ELOCON) 0.1 % cream Apply to affected area once daily. magnesium oxide (MAG-OX) 400 mg (241.3 mg [...] (FLONASE) 50 mcg/actuation nasal spray Use 1 Emmonak in each nostril once daily. No current facility-administered medications on file prior to visit. [facility] RX SPECIALTY CLINICAL ASSESSMENT - NEUROLOGY [...] without relapses Previous disease therapies: - Betaseron 2816-0566 - Copaxone 5246-8797 - Tysabri 2009-Summer 2019 (stopped due to planned ) - Copaxone 1532-5509 (during ) - Ocrevus (02/28/21 through 09/25/23, [...] Estimated Treatment Duration: No information available Madison Meektrinh (Eap Consultant) [facility] 12-13-2024 Telephone encounter Note Provider is Tor Hernandez APRN.LIQUEFACTION PLANT OPERATOR Patient continues on glatiramer (COPAXONE) 40 mg/mL injection Date of patients last office visit 06/09/2024 Last labs / Imaging: MRI Spine T0 and MRI Brain and cervical 01/02/2023 Next appointment date: not scheduled yet Requested Prescriptions Pending Prescriptions Disp Refills glatiramer (COPAXONE) 40 mg/mL injection 12 mL 5 Sig: Inject 40 mg subcutaneously every Friday, Friday, and Friday. Patient prefers: [facility] Thank you! Simona Cain MSc, MS, BCPS, BCMTMS, [facility] Clinical Specialty Pharmacist [facility] 12-13-2024 Miscellaneous Notes Provider is Tor Hernandez APRN.LIQUEFACTION PLANT OPERATOR Patient continues on glatiramer (COPAXONE) 40 mg/mL injection Date of patients last office visit 06/09/2024 Last labs / Imaging: MRI Spine T0 and MRI Brain and cervical 01/02/2023 Next appointment date: not scheduled yet Requested Prescriptions Pending Prescriptions Disp Refills glatiramer (COPAXONE) 40 mg/mL injection 12 mL 5 Sig: Inject 40 mg subcutaneously every Friday, Friday, and Friday. Patient prefers: [facility] Thank you! Simona Cain MSc, MS, BCPS, BCMTMS, [facility] Clinical Specialty Pharmacist [facility] documented in this encounter [facility] 12-10-2024 History of Present illness Narrative Images from the original note were not included. [address], [address] [facility], [address] P: [phone] F: [phone] HPI Historian of HPI: patient Carol Ann Martinez is a 39 y.o. female who presents today to the Urgent Care with the following complaints and denials which have been present for 3 day(s). Pt reports sore throat, dry cough, nasal congestion x 3 days. Daughter recently sick. Denies fevers, chills, myalgias, sob, wheezing. C/O Denies Symptom Comments [] [x] Runny Nose [] [x] Difficulty Swallowing [x] [] Sore Throat [x] [] Cough [] [x] Ear Pain [] [x] Fever [] [x] Chills [] [x] Nasal Congestion [x] [] Myalgia [] [x] Sinus Pain [] [x] Sinus Pressure Additional Comments: pt has not taken any OTC medications Pt is agreeable to strep, covid and flu testing ROS A complete system ROS was performed and negative aside from the pertinent positives noted in the HPI and PE. Physical Exam General Examination: alert, oriented, normal affect, well-appearing, in no acute distress, well developed, well nourished. Head: normocephalic, atraumatic Eyes: sclera non-icteric Ears: auditory canal clear, tympanic membrane intact, clear Nose: congestion noted Oral Cavity: no lesions, mucosa moist Throat: clear, symmetrical rise of soft palate and uvula, no erythema or exudate Lymph Nodes: no cervical adenopathy Heart: regular rate and rhythm, S1, S2 normal Lungs: clear to auscultation bilaterally. No wheezes, rales, rhonchi. Extremities: no edema, no cyanosis Psych: alert, oriented, cognitive function intact, cooperative with exam. TREATMENT PLAN 1. Upper respiratory tract infection, unspecified type (Primary) Discussed diagnosis and management, likely viral etiology and symptomatic treatment including OTC Tylenol, flonase, using humidifier, rest, and increased hydration. Patient advised to return for immediate evaluation if symptoms worse, change, or do not improve. Follow-up with PCP in 5-7 days or sooner if needed. All questions/concerns addressed. Patient voiced understanding and agreement with the plan. - STATUS COVID-19/FLU - STREP DNA PROBE documented in this encounter [facility] 12-03-2024 History of Present illness Narrative [address] , [address] [facility], [address] P: [phone] F: [phone] HPI Historian of HPI: patient Carol Ann Martinez is a 39 y.o. female who presents today to the Urgent Care with the following complaints and denials which have been present for 1 day(s) C/O Denies Symptom Comments [x] [] Runny Nose [] [x] Difficulty Swallowing [x] [] Sore Throat [x] [] Cough [] [x] Ear Pain [] [x] Fever [] [x] Chills [x] [] Nasal Congestion [] [x] Myalgia [x] [] Sinus Pain [x] [] Sinus Pressure Additional Comments: pt has not taken any OTC medications Pt was given medrol dospak on Friday for sx. Pt is . ROS A complete system ROS was performed and negative aside from the pertinent positives noted in the HPI and PE. IH Testing: PHYSICAL EXAM Examination General Examination: General Examination: alert, oriented, normal affect, well-appearing, in no acute distress, well developed, well nourished. Head: normocephalic, atraumatic Eyes: sclera non-icteric Ears: auditory canal clear, tympanic membrane intact, clear Nose: congestion noted Oral Cavity: no lesions, mucosa moist Throat: uvula midline Neck/Thyroid: FROM Lymph Nodes: no cervical adenopathy Heart: no murmurs, regular rate and rhythm, S1, S2 normal Lungs: Clear BS. No wheezes, rales, rhonchi. Extremities: no edema, no cyanosis Psych: alert, oriented, cognitive function intact, cooperative with exam. TREATMENT PLAN 1. Acute rhinosinusitis (Primary) Diagnosis and treatment discussed with patient. Immediate eval if new, worsening sx otherwise f/u with PCP if sx not resolved in 7 days, sooner if not improving over next 3-4 days. To ED for trouble swallowing secretions, shortness of breath, or other red flag symptoms. Advised Pt on supportive therapies, including using a vaporizer/humidifer/steam from hot showers, lots of fluids as tolerated, rest, avoidance of second-hand smoke, frequent hand-washing w/ soap and water, and OTC acetaminophen or ibuprofen as directed prn for pain control - amoxicillin (Amoxil) 875 MG tablet; Take 1 tablet (875 mg) by mouth in the morning and 1 tablet (875 mg) before bedtime. Do all this for 7 days. Dispense: 14 tablet; Refill: 0 documented in this encounter [facility] 11-29-2024 History of Present illness Narrative Reason for Appointment: Patient ID: Carol Ann Martinez is a 39 y.o. female who presents for 6wk Post Visit Patient presents today for Post Follow Up appointment. MEDICATIONS Current Outpatient Medications Medication Instructions cetirizine (ZYRTEC) 10 mg, Oral, Daily cholecalciferol (VITAMIN D3) 1.25 mg, Weekly clotrimazole-betamethasone (Lotrisone) cream 1 application , Topical, Daily, Apply to affected area daily for 7 days ergocalciferol (VITAMIN D-2) 50,000 Units, Weekly glatiramer (COPAXONE,GLATOPA) 20 mg, Daily RT Jenliva / 1 mg, Oral, Daily magnesium oxide (Mag-Ox) 400 MG tablet 1 tablet, Nightly methylPREDNISolone (Medrol Dospak) 4 MG tablets Day 1: 6 tablets Day 2: 5 tablets Day 3: 4 tablets Day 4: 3 tablets Day 5: 2 tablets Day 6: 1 tablet mometasone (Elocon) 0.1 % cream Daily RT valACYclovir (VALTREX) 500 mg, Oral, Daily ALLERGIES [...] reaction(s): Headaches, Other (See Comments) Soy Allergy (Do Not Select) Headache and Unknown Other Reaction(s): Other (See [...] Hypoglycemia Low iron MS (multiple sclerosis) ([facility]) Urinary incontinence 2009 HISTORY PAST MEDICAL HISTORY SOCIAL HISTORY Past Medical History: Diagnosis Date Abnormal Pap smear of cervix 2007 Bacterial vaginosis 2019 Hypocalcemia Hypoglycemia Low iron MS (multiple sclerosis) ([facility]) Urinary incontinence 2009 Social History [...] reviewed. Vitals: Estimated body mass index is 21.91 kg/m as calculated from the following: Height as of 09/18/23: 5' 6.5 . Weight as of this encounter: 137 lb 12.8 oz. BP: 110/78 Patient's last menstrual period was 02/09/2024. ASSESSMENT & PLAN ICD-10-CM 1. 6 weeks follow-up Z39.2 Bqcqvubp-Eio-Vg-FA (Jenliva /) 1 MG capsule Post Follow Up: Patient is doing wellPatient presents today for 6 week visit. Patient is s/p Vaginal delivery. Patient states depression but denies suicidal and homicidal ideations. All options were discussed with the patient regarding control and patient desires IUD. Follow Up: Patient is to return for annual unless needed otherwise. Documented by ANSON Mon on behalf of: ANSON Mon documented in this encounter [facility] 11-15-2024 Note HNO ID: [id number] Author: SIMONA CAIN [facility] Service: ? Author Type: ? Type: Progress Notes Filed: 11/18/2024 10:53 Note Text: [facility] Refill Assessment Medication(s): [...] been reviewed prior to dispensing the medication. Simona Cain, MSc, MS, BCPS, BCMTMS, [facility] Clinical Specialty Pharmacist [facility] Business Management Intern Assessment Patient confirmed: Yes Med/dose confirmed: Yes Supplies needed: Alcohol swabs Missed doses: No Estimated days supply on hand: (1 or 2) Next cycle/dose due: 11/19/24 Copay amount: 0 Payment confirmed: Yes Delivery method: FedEx Signature required: Waived on patient request Delivery address: [place] [address] *Attn Jennifer Monae* Delivery date: 11/19/24 Questions or concerns for the pharmacist?: No Did you have any side effects believed to be related to this medication, that resulted in hospitalization?: No Current Outpatient Medications on File Prior to Visit Medication Sig ergocalciferol 50,000 unit capsule (VITAMIN D2, DRISDOL) TAKE 1 CAPSULE BY MOUTH ONCE EVERY WEEK methylPREDNISolone (MEDROL DOSE-PACK) 4 mg Dose-Pack Day [...] (FLONASE) 50 mcg/actuation nasal spray Use 1 Emmonak in each nostril once daily. No current facility-administered medications on file prior to visit. [facility] RX SPECIALTY CLINICAL ASSESSMENT - NEUROLOGY [...] without relapses Previous disease therapies: - Betaseron 6803-3241 - Copaxone 1993-4450 - Tysabri 2009-Summer 2019 (stopped due to planned ) - Copaxone 8291-4257 (during ) - Ocrevus (02/28/21 through 09/25/23, [...] Treatment Duration: No information available Madison Puente (Eap Consultant) [facility] 10-18-2024 Note HNO ID: [id number] Author: SIMONA CAIN RPh Service: ? Author Type: ? Type: Progress Notes Filed: 10/21/2024 10:10 Note Text: [facility] Refill Assessment Medication(s): [...] been reviewed prior to dispensing the medication. Simona Cain, MSc, MS, BCPS, BCMTMS, [facility] Clinical Specialty Pharmacist [facility] Business Management Intern Assessment Patient confirmed: Yes Med/dose confirmed: Yes Supplies needed: No supplies needed Missed doses: No Estimated days supply on hand: (not very much) Next cycle/dose due: 10/22/24 Copay amount: 0 Payment confirmed: Yes Delivery method: FedEx Signature required: Waived on patient request Delivery address: [address] [place] [address] Delivery date: 10/22/24 Questions or concerns for the pharmacist?: No Did you have any side effects believed to be related to this medication, that resulted in hospitalization?: No Current Outpatient Medications on File Prior to Visit Medication Sig ergocalciferol 50,000 unit capsule (VITAMIN D2, DRISDOL) TAKE 1 CAPSULE BY MOUTH ONCE EVERY WEEK methylPREDNISolone (MEDROL DOSE-PACK) 4 mg Dose-Pack Day [...] (FLONASE) 50 mcg/actuation nasal spray Use 1 Emmonak in each nostril once daily. No current facility-administered medications on file prior to visit. [facility] RX SPECIALTY CLINICAL ASSESSMENT - NEUROLOGY [...] without relapses Previous disease therapies: - Betaseron 1960-7128 - Copaxone 8216-4140 - Tysabri 2009-Summer 2019 (stopped due to [...] Treatment Duration: No information available Madison Puente (Eap Consultant) [facility] 10-18-2024 Telephone encounter Note The following approved medication requests have been transmitted electronically. Requested Prescriptions Signed Prescriptions Disp Refills ergocalciferol 50,000 unit capsule (VITAMIN D2, DRISDOL) 12 capsule 3 Sig: TAKE 1 CAPSULE BY MOUTH ONCE EVERY WEEK Authorizing Provider: TOR HERNANDEZ APRN.CNP [facility] 10-18-2024 Miscellaneous Notes The following approved medication requests have been transmitted electronically. Requested Prescriptions Signed Prescriptions Disp Refills ergocalciferol 50,000 unit capsule (VITAMIN D2, DRISDOL) 12 capsule 3 Sig: TAKE 1 CAPSULE BY MOUTH ONCE EVERY WEEK Authorizing Provider: TOR HERNANDEZ APRN.CNP Source : electronic from pharmacy requesting refill. Delivery : e-script Requested Prescriptions Pending Prescriptions Disp Refills ergocalciferol 50,000 unit capsule (VITAMIN D2, DRISDOL) [Pharmacy Med Name: VIT D2 (ERGOCAL) 1.25MG(50,000U) CP] 12 capsule 3 Sig: TAKE 1 CAPSULE BY MOUTH ONCE EVERY WEEK DX : Patient last seen 06/09/2024 Next Appointment : 11/18/2024 ALEXYS Arndt documented in this encounter [facility] 10-18-2024 Telephone encounter Note Source : electronic from pharmacy requesting refill. Delivery : e-script Requested Prescriptions Pending Prescriptions Disp Refills ergocalciferol 50,000 unit capsule (VITAMIN D2, DRISDOL) [Pharmacy Med Name: VIT D2 (ERGOCAL) 1.25MG(50,000U) CP] 12 capsule 3 Sig: TAKE 1 CAPSULE BY MOUTH ONCE EVERY WEEK DX : Patient last seen 06/09/2024 Next Appointment : 11/18/2024 ALEXYS Arndt [facility] 10-13-2024 Telephone encounter Note Ensure prescription faxed to [facility] on 10/13. Order will need to process and go through insurance for coverage before order is delivered. [facility] 10-13-2024 Miscellaneous Notes Ensure prescription faxed to [facility] on 10/13. Order will need to process and go through insurance for coverage before order is delivered. documented in this encounter [facility] 10-12-2024 History of Present illness Narrative Reason for [...] mometasone (Elocon) 0.1 % cream Daily RT Ddcboyci-Ljx-Lu-FA (Jenliva /) 1 MG capsule Take by [...] Hypoglycemia Low iron MS (multiple sclerosis) ([facility]) Urinary incontinence 2009 HISTORY PAST MEDICAL HISTORY SOCIAL HISTORY Past Medical History: Diagnosis Date Abnormal Pap smear of cervix 2007 Bacterial vaginosis 2019 Hypocalcemia Hypoglycemia Low iron MS (multiple sclerosis) ([facility]) Urinary incontinence 2008 Social History Tobacco [...] nursing note reviewed. Exam conducted with a development intern present. Vitals: Estimated body mass index is 22.6 kg/m as calculated from the following: Height as of 09/18/23: 5' 6.5 . Weight as of this encounter: 142 lb 1.9 oz. BP: 120/76 Patient's last menstrual period was 02/09/2024. ASSESSMENT & PLAN ICD-10-CM 1. 37 weeks gestation of Z3A.37 POCT urinalysis dipstick manually resulted 2. Third trimester Z34.93 POCT urinalysis dipstick manually resulted 3. Poor growth affecting management of mother, antepartum, single or unspecified fetus O36.5990 Return OB: Patient presents today for a routine obstetrics appointment. Patient is currently 37w6d . Patient states she is doing well but has complaints of being tired due to current . Patient has verbalizes frequent movement. labor precautions was discussed/given and patient was instructed to perform kick counts three times a day. Pt is measuring IUGR- being induced 10/14/24 with pitocin at 0500. Orders Placed This Encounter Procedures POCT urinalysis dipstick manually resulted Follow Up: Patient is to return to office in 1 week for routine OB appointment. Documented by Aleyda Portillo LPN on behalf of: Clarke uH DO documented in this encounter [facility] 10-12-2024 History of Present illness Narrative Subjective [...] MD Maternal Medicine documented in this encounter [facility] Work Phone: 10-11-2024 History of Present illness Narrative Program_ID:[id number] Access Code: [email or web address] URL: [email or web address] Date: 10-11-2024 Prepared By: Estrella Sorto Program [...] - 10 reps - Hamstring Set with Gabonese Ball - 1 x daily - 7 [...] 10/11/2024 and treatment included: Therapeutic exercise and Self-long term management. Exhibits minor improvements in her strength at this time. Encouraged consistent HEP as tolerated within the next week and then return to HEP pending physician clearance . Pt to be induced through labor next week, so discharge to indepedent HEP as tolerated. Goals for Episode of Care: established 09/03/24 [place] in home exercise program. Met Patient will [...] Sorto PT, DPT documented in this encounter [facility] 10-11-2024 Note HNO ID: [id number] Author: ESTRELLA SORTO, PT, DPT Service: ? [...] 10/11/2024 and treatment included: Therapeutic exercise and Self-long term management. Exhibits minor improvements in her strength at this time. Encouraged consistent HEP as tolerated within the next week and then return to HEP pending physician clearance . Pt to be induced through labor next week, so discharge to indepedent HEP as tolerated. Goals for Episode of Care: established 09/03/24 [place] in home exercise program. Met Patient will [...] Time : 1333 Estrella Sorto, PT, DPT [facility] 10-04-2024 History of Present illness Narrative [...] mometasone (Elocon) 0.1 % cream Daily RT Rpdfmcoj-Soe-Yn-FA (Jenliva /) 1 MG capsule Take by [...] Hypoglycemia Low iron MS (multiple sclerosis) ([facility] [facility]ence 2009 HISTORY PAST MEDICAL HISTORY SOCIAL HISTORY Past Medical History: Diagnosis Date Abnormal Pap smear of cervix 2007 Bacterial vaginosis 2019 Hypocalcemia Hypoglycemia Low iron MS (multiple sclerosis) ([facility]) Urinary incontinence 2009 Social History [...] of: ANSON Mon documented in this encounter [facility] 09-27-2024 History of Present illness [...] mometasone (Elocon) 0.1 % cream Daily RT Chsdcdqf-Hhx-Cr-FA (Jenliva /) 1 MG capsule Take by [...] Hypoglycemia Low iron MS (multiple sclerosis) ([facility]) Urinary incontinence 2009 HISTORY PAST MEDICAL HISTORY SOCIAL HISTORY Past Medical History: Diagnosis Date Abnormal Pap smear of cervix 2007 Bacterial vaginosis 2019 Hypocalcemia Hypoglycemia Low iron MS (multiple sclerosis) ([facility]) Urinary incontinence 2009 Social History [...] nursing note reviewed. Exam conducted with a development intern present. Vitals: Estimated body mass index is [...] Clarke Hu DO documented in this encounter [facility] 09-22-2024 Note HNO ID: [id number] Author: ESTELLA DUTTON RD Service: ? Author Type: Registered Dietitian Type: Progress Notes Filed: 10/01/2024 16:42 Note Text: [facility] Nutrition Therapy: Virtual Consult - Initial Assessment I have communicated my name and active licensure. The patient?s identity and physical location were verified at the time of this visit. Either the patient or their legal sales representative raw fibers has been informed of the risks and [...] Ann Martinez DATE: 09/22/2024 TIME: 8:41 AM [facility] 09-22-2024 History of Present illness Narrative [facility] Nutrition Therapy: Virtual Consult - Initial Assessment I have communicated my name and active licensure. The patient s identity and physical location were verified at the time of this visit. Either the patient or their legal sales representative raw fibers has been informed of the risks and [...] TIME: 8:41 AM documented in this encounter [facility] 09-21-2024 History of Present illness Narrative Reason [...] mometasone (Elocon) 0.1 % cream Daily RT Wipkvten-Gbq-Ml-FA (Jenliva /) 1 MG capsule Take by [...] Hypoglycemia Low iron MS (multiple sclerosis) ([facility]) Urinary incontinence 2009 HISTORY PAST MEDICAL HISTORY SOCIAL HISTORY Past Medical History: Diagnosis Date Abnormal Pap smear of cervix 2007 Bacterial vaginosis 2019 Hypocalcemia Hypoglycemia Low iron MS (multiple sclerosis) ([facility]) Urinary incontinence 2009 Social History [...] nursing note reviewed. Exam conducted with a development intern present. Vitals: Estimated body mass index is [...] Clarke Hu DO documented in this encounter [facility] 09-21-2024 History of Present illness Narrative Program_ID:[id number] Access Code: [email or web address] URL: [email or web address] Date: 09-21-2024 Prepared By: Estrella Sorto Program [...] therapeutic exercises was facilitated with verbal cuing. Self-Senior Living Management: 1: discussed importance of focus through [...] Time (minutes): 40 Session Start Time : 40 Session Stop Time : 1020 AUREA Masterson Supervising therapist was present and guided the care of the patient for the entire session on this date. All documentation was reviewed and agreed upon. Estrella Sorto PT, DPT documented in this encounter [facility] 09-21-2024 Note HNO ID: [id number] Author: ESTRELLA SORTO PT, DPT Service: ? [...] therapeutic exercises was facilitated with verbal cuing. Self-Senior Living Management: 1: discussed importance of focus through [...] and agreed upon. Estrella Sorto, PT, DPT [facility] 09-20-2024 Note HNO ID: [id number] Author: IBAN LAZO, PhD Service: ? Author Type: Psychologist Type: Progress Notes Filed: 09/20/2024 14:26 Note Text: Behavioral Sleep Medicine Follow up Iban Lazo, PhD I have communicated my name and active licensure. The patient's identity and physical location were verified at the time of this visit. Either the patient or their legal sales representative raw fibers has been informed of the risks and benefits of -- and alternatives to -- treatment through a remote evaluation and consents to proceed with the evaluation remotely. Contact Method: Zoom Patient Confirmed [address]: [address] [place] [address] Patient Confirmed Telephone #: [phone] Time: 40 minutes Individual Psychotherapy Session # [...] for 3-6 [facility] 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 Iban Lazo, PhD, Psychologist ([place] license [id number]) [facility] 09-20-2024 History of Present illness Narrative [...] been reviewed prior to dispensing the medication. Business Management Intern Assessment Patient confirmed: Yes Med/dose confirmed: Yes Supplies needed: No supplies needed Missed doses: No Estimated days supply on hand: 1 Delivery method: FedEx Signature required: No Delivery address: [address] [place] [address] APT Delivery date: 09/22/24 Questions or concerns [...] (FLONASE) 50 mcg/actuation nasal spray Use 1 Emmonak in each nostril once daily. No current facility-administered medications on file prior to visit. [facility] RX SPECIALTY CLINICAL ASSESSMENT - NEUROLOGY [...] without relapses Previous disease therapies: - Betaseron 6958-6660 - Copaxone 6046-8171 - Tysabri 2009-Summer 2019 (stopped due to planned ) - Copaxone 5311-2909 (during ) - Ocrevus (02/28/21 through 09/25/23, [...] Kenzie Mccall RPh documented in this encounter [facility] 09-20-2024 Note HNO ID: [id number] Author: KENZIE MCCALL [facility] Service: ? [...] been reviewed prior to dispensing the medication. Business Management Intern Assessment Patient confirmed: Yes Med/dose confirmed: Yes Supplies needed: No supplies needed Missed doses: No Estimated days supply on hand: 1 Delivery method: FedEx Signature required: No Delivery address: [address] [place] [address] [address] Delivery date: 09/22/24 Questions or [...] (FLONASE) 50 mcg/actuation nasal spray Use 1 Emmonak in each nostril once daily. No current facility-administered medications on file prior to visit. [facility] RX SPECIALTY CLINICAL ASSESSMENT - NEUROLOGY [...] without relapses Previous disease therapies: - Betaseron 6086-0828 - Copaxone 4173-9794 - Tysabri 2009-Summer 2019 (stopped due to planned ) - Copaxone 1514-2074 (during ) - Ocrevus (02/28/21 through 09/25/23, [...] Treatment Duration: No information available Kenzie Mccall [facility] 09-03-2024 History of Present illness Narrative Program_ID:[id number] Access Code: [email or web address] URL: [email or web address] Date: 09-03-2024 Prepared By: Estrella Sorto Program [...] Goals for Episode of Care: established 09/03/24 [place] in home exercise program. Patient will decrease [...] Planned: 4 Planned Treatment Interventions: Therapeutic exercise (14407), Neuromuscular re-education (73647), Manual therapy (09790), Therapeutic activities (08636), Self-long term management (65099), Gait Training (97634), Patient/Family/Caregiver Education PLAN FOR NEXT VISIT: Continue [...] Demonstration TREATMENT: PT Treatment Interventions: Therapeutic Exercise, Self-Senior Living Management Evaluation Evaluation Therapeutic Exercise: 1: *seated [...] use of heat and parameters for each. Self-Senior Living Management: 1: educated through diagnosis, prognosis, plan [...] Sorto PT, DPT documented in this encounter [facility] 09-03-2024 Note HNO ID: [id number] Author: ESTRELLA SORTO PT, DPT Service: ? [...] Goals for Episode of Care: established 09/03/24 [place] in home exercise program. Patient will decrease [...] Planned: 4 Planned Treatment Interventions: Therapeutic exercise (19372), Neuromuscular re-education (08428), Manual therapy (17838), Therapeutic activities (51658), Self-long term management (77242), Gait Training (80170), Patient/Family/Caregiver Education PLAN FOR NEXT VISIT: Continue [...] R Hip Pa (more content not included)... [facility] 09-02-2024 Telephone encounter Note Duplicate message Closing this encounter [facility] 09-02-2024 Miscellaneous Notes Duplicate message Closing this encounter documented in this encounter [facility] 08-30-2024 Note HNO ID: [id number] Author: ART SWENSON OD Service: ? Author Type: COMPLIANCE TECHNICIAN Type: Progress Notes Filed: 08/30/2024 16:40 [...] her +++ August 30, 2024 4:35 PM [facility] 08-30-2024 History of Present illness Narrative [...] 2024 4:35 PM documented in this encounter [facility] 08-26-2024 History of Present illness Narrative [...] the morning. cholecalciferol (Vitamin D3) 1.25 MG (62681 UT) tablet Take 1.25 mg by mouth once a week clotrimazole-betamethasone (Lotrisone) cream Apply 1 application topically Daily Apply to affected area daily for 7 days 45 g 0 ergocalciferol (Vitamin D-2) 1.25 MG (56123 UT) capsule Take 50,000 Units by mouth [...] (Elocon) 0.1 % cream Apply topically Daily Tunundkt-Ted-Ov-FA (Jenliva /) 1 MG capsule Take by [...] Aleyda WEINSTEIN, PA-C documented in this encounter [facility] 08-24-2024 History of Present illness [...] mometasone (Elocon) 0.1 % cream Daily RT Runptcql-Nxy-Hw-FA (Jenliva /) 1 MG capsule Take by [...] Hypoglycemia Low iron MS (multiple sclerosis) ([facility]) Urinary incontinence 2009 HISTORY PAST MEDICAL HISTORY SOCIAL HISTORY Past Medical History: Diagnosis Date Abnormal Pap smear of cervix 2007 Bacterial vaginosis 2019 Hypocalcemia Hypoglycemia Low iron MS (multiple sclerosis) ([facility]) Urinary incontinence 2009 Social History [...] nursing note reviewed. Exam conducted with a development intern present. Vitals: Estimated body mass index is [...] dipstick manually resulted 3. MS (multiple sclerosis) ([facility]) G35 methylPREDNISolone (Medrol Dospak) 4 [...] week for routine OB appointment. Documented by Loli Rm LPN on behalf of: ANSON Mon documented in this encounter [facility] 08-18-2024 Note HNO ID: [id number] Author: CLARICE ZEPEDA [facility] Service: ? Author Type: Health Computer Systems Security Administrator Type: Progress Notes Filed: 08/18/2024 09:03 Note Text: Mialed OTC-Nutritional Suppl order to pt CAROL ANN MARTINEZ [address] [place] [address] [facility] 08-18-2024 History of Present illness Narrative Mialed OTC-Nutritional Suppl order to pt CAROL ANN MARTINEZ [address] [place] [address] documented in this encounter [facility] 08-17-2024 History of Present illness Narrative [...] MD Maternal Medicine documented in this encounter [facility] Work Phone: 08-17-2024 Telephone encounter Note Prescription signed and had to be printed, will send out Letter written and placed in chart Tor Hernandez APRN.CNP August 17, 2024 10:26 AM [facility] 08-17-2024 Miscellaneous Notes Prescription signed and had to be printed, will send out Letter written and placed in chart Tor Hernandez APRN.CNP August 17, 2024 10:26 AM documented in this encounter [facility] 08-16-2024 History of Present illness Narrative [...] been reviewed prior to dispensing the medication. Business Management Intern Assessment Patient confirmed: Yes Med/dose confirmed: Yes Supplies needed: No supplies needed Missed doses: No Estimated days supply on hand: (maybe 2 weeks, not sure) Next cycle/dose due: 08/16/24 Copay amount: 0 Payment confirmed: Yes Delivery method: FedEx Signature required: Waived on patient request Delivery address: [address] [place] [address] Delivery date: 08/31/24 Questions or concerns for [...] (FLONASE) 50 mcg/actuation nasal spray Use 1 Emmonak in each nostril once daily. No current facility-administered medications on file prior to visit. [facility] RX SPECIALTY CLINICAL ASSESSMENT - NEUROLOGY [...] inject where skin looks healthy. Training video ([employer] no longer supplies nurses for training, or injection devices) PFS supplied and training video https://www.ClearFlow/injectio n-assistance/ntc-ic-andmwv DDI none pertinent Vaccines reviewed Est. Tx Plan Start Date: No information available Estimated Start Date Info: No information available Est. Estimated Treatment Duration: No information available Madison Puente ([employer]) documented in this encounter [facility] 08-16-2024 Note HNO ID: [id number] Author: KENZIE MCCALL RPh Service: ? Author [...] been reviewed prior to dispensing the medication. Business Management Intern Assessment Patient confirmed: Yes Med/dose confirmed: Yes Supplies needed: No supplies needed Missed doses: No Estimated days supply on hand: (maybe 2 weeks, not sure) Next cycle/dose due: 08/16/24 Copay amount: 0 Payment confirmed: Yes Delivery method: FedEx Signature required: Waived on patient request Delivery address: [address] [facility] [address] Delivery date: 08/31/24 Questions or concerns for [...] (FLONASE) 50 mcg/actuation nasal spray Use 1 Emmonak in each nostril once daily. No current facility-administered medications on file prior to visit. [facility] RX SPECIALTY CLINICAL ASSESSMENT - NEUROLOGY [...] inject where skin looks healthy. Training video ([employer] no longer supplies nurses for training, or injection devices) PFS supplied and training video https://www.ClearFlow/injectio n-assistance/qwg-mo-ustjqt DDI none pertinent Vaccines reviewed Est. Tx Plan Start Date: No information available Estimated Start Date Info: No information available Est. Estimated Treatment Duration: No information available Madison Puente ([employer] Consultant) [facility] 08-10-2024 History of Present illness Narrative [...] Vitamin (multivitamin) tablet 1 tablet, Oral, Daily Pfalzgdq-Qbu-Zs-FA (Jenliva /) 1 MG capsule Oral Vit-Fe [...] Hypoglycemia Low iron MS (multiple sclerosis) ([facility]) Urinary incontinence 2009 HISTORY PAST MEDICAL HISTORY SOCIAL HISTORY Past Medical History: Diagnosis Date Abnormal Pap smear of cervix 2007 Bacterial vaginosis 2019 Hypocalcemia Hypoglycemia Low iron MS (multiple sclerosis) ([facility]) Urinary incontinence 2009 Social History [...] nursing note reviewed. Exam conducted with a development intern present. Vitals: Estimated body mass index is [...] Clarke Hu DO documented in this encounter [facility] 07-27-2024 History of Present illness Narrative Reason for Appointment: Patient ID: Carol Ann Martinez is a 38 y.o. female who presents for Routine Visit [...] Vitamin (multivitamin) tablet 1 tablet, Oral, Daily Bnqkxntj-Uzj-Fp-FA (Jenliva /) 1 MG capsule Oral Vit-Fe [...] Hypoglycemia Low iron MS (multiple sclerosis) ([facility]) Urinary incontinence 2009 HISTORY PAST MEDICAL HISTORY SOCIAL HISTORY Past Medical History: Diagnosis Date Abnormal Pap smear of cervix 2007 Bacterial vaginosis 2019 Hypocalcemia Hypoglycemia Low iron MS (multiple sclerosis) ([facility]) Urinary incontinence 2009 Social History [...] nursing note reviewed. Exam conducted with a development intern present. Vitals: Estimated body mass index is 21.38 kg/m as calculated from the following: Height as of 09/18/23: 5' 6.5 . Weight as of this encounter: 134 lb 8 oz. BP: 106/68 Patient's last menstrual period was 02/09/2024. ASSESSMENT & PLAN ICD-10-CM 1. Second trimester Z34.92 POCT urinalysis dipstick manually resulted Return OB: Patient presents today for a routine obstetrics appointment. Patient is currently 26w6d . Patient states she is doing well but has complaints of being tired due to current . Patient has verbalizes frequent movement. labor precautions was discussed/given and patient was instructed to perform kick counts three times a day. Orders Placed This Encounter Procedures POCT urinalysis dipstick manually resulted Follow Up: Patient is to return to office in 2 week for routine OB appointment. Documented by Aleyda Portillo LPN on behalf of: Clarke Hu DO documented in this encounter [facility] 07-20-2024 Instructions Mercy Urbina MD - 07/20/2024 11:51 AM EDT Discussed [...] hours of bedtime. documented in this encounter [facility] 07-20-2024 History of Present illness Narrative Images from the original note were not included. [facility] Follow up/ Established patient visit Date of last visit : 08/19/2023 I have communicated my name and active licensure. The patient's identity and physical location were verified at the time of this visit. Either the patient or their legal sales representative raw fibers has been informed of the risks and [...] sorted in reverse-chronological order 04/13/2024 05/23/2024 07/08/2024 [place] Sleepiness Scale Score 0 (No clinically significant [...] (FLONASE) 50 mcg/actuation nasal spray Use 1 Emmonak in each nostril once daily. PHYSICAL EXAMINATION: NEUROLOGICAL EXAM: General: Awake, alert, speech fluent, comprehension, naming, repetition intact. Short and fpc memory intact. IMPRESSION: Primary insomnia (primary encounter diagnosis) Rls (restless legs syndrome) Carol Ann Martinez is a 38 year old female with hx of MS and WINIFRED here for evaluation of insomnia, RLS. She is currently and has come off of trazodone for her insomnia. She is currently taking rmfo-csc-rjichai Unisom without much benefit. Her sleep is [...] iron Follow up with [facility] for CBTi Mercy Urbina MD Clinical Build Technicianrecordist [facility] documented in this encounter [facility] 07-19-2024 History of Present illness Narrative HPI: Historian of HPI: patient Carol Ann Martinez is a 38 y.o. female who presents today to the Urgent Care with the following complaints and denials which have been present for 2 day(s) C/O Denies Symptom Comments [x] [] Runny Nose [] [x] Difficulty Swallowing [] [x] Sore Throat [x] [] Cough [] [x] Ear Pain [] [x] Fever [] [x] Chills [x] [] Nasal Congestion [] [x] Myalgia [] [x] Sinus Pain [] [x] Sinus Pressure Additional Comments: pt has not taken any OTC medications Pt is having bilateral eye drainage for the last 3-4 months ROS: A complete system ROS was performed and negative aside from the pertinent positives noted in the HPI and PE. Visit Vitals Pulse 109 Temp 97.4 F Wt 115 lb LMP 02/09/2024 SpO2 98% BMI 18.28 kg/m OB Status Smoking Status Never BSA 1.56 m Physical Exam Vitals reviewed. Constitutional: General: She is not in acute distress. Appearance: Normal appearance. HENT: Head: Normocephalic and atraumatic. Right Ear: Tympanic membrane, ear canal and external ear normal. Left Ear: Tympanic membrane, ear canal and external ear normal. Nose: Nose normal. Mouth/Throat: Mouth: Mucous membranes are moist. Pharynx: Oropharynx is clear. Eyes: Extraocular Movements: Extraocular movements intact. Conjunctiva/sclera: Conjunctivae normal. Pupils: Pupils are equal, round, and reactive to light. Cardiovascular: Rate and Rhythm: Normal rate and regular rhythm. Pulses: Normal pulses. Heart sounds: Normal heart sounds. Pulmonary: Effort: Pulmonary effort is normal. No respiratory distress. Breath sounds: Normal breath sounds. No wheezing, rhonchi or rales. Musculoskeletal: General: Normal range of motion. Cervical back: Normal range of motion and neck supple. Skin: General: Skin is warm and dry. Findings: No rash. Neurological: General: No focal deficit present. Mental Status: She is alert and oriented to person, place, and time. Psychiatric: Mood and Affect: Mood normal. Behavior: Behavior normal. Thought Content: Thought content normal. Judgment: Judgment normal. 1. Acute cough She has been ill x 2 days. She is . Testing in is negative for COVID 19 and Influenza. Advised this is likely viral and to call [facility] ALCHOL[facility]ER for OTC recommendations for medication. - STATUS COVID-19/FLU 2. Pharyngitis, unspecified etiology Patient negative for COVID 19 and Influenza A/B. Advised increase in fluids and run humidifier. - STATUS COVID-19/FLU 3. Viral upper respiratory illness Pt advised they have a viral illness. Advised on what OTC medications to take to treat fever, sore throat, body aches, sinus pain, cough, chest congestion, nose and sinus congestion, sneezing, runny nose, watery, itchy eyes, overall congestion relief, faster recovery and how to avoid spreading your illness. Call or RTO if worsening or not improving as expected. documented in this encounter [facility] 07-19-2024 History of Present illness [...] the hip. She is not taken anything bjuw-psk-gwmrnsh for it. Patient has multiple sclerosis. Her [...] few seconds when she was on a mrtll-jg-yrzpv with her daughter. She told her DE ALCHOLIZER about the symptoms she has started to [...] by neurology. - CONSULT TO PHYSICAL THERAPY Yppwjewlz-bfzajd-pq with DE ALCHOLIZER as scheduled. Patient said she is on pelvic rest and limited lifting due to shortened cervix. Viral URI-if symptoms worsen, take amoxicillin Dry skin on the nose-give a trial of Elocon cream Janice Lane MD documented in this encounter [facility] 07-19-2024 History of Present illness [...] been reviewed prior to dispensing the medication. Business Management Intern Assessment Patient confirmed: Yes Med/dose confirmed: Yes Supplies needed: No supplies needed Missed doses: No Estimated days supply on hand: 3 Next cycle/dose due: 07/19/24 Copay amount: 0 Payment confirmed: Yes Delivery method: FedEx Signature required: Waived on patient request Delivery address: [address] [place] [id number] Delivery date: 07/23/24 Questions or concerns for [...] (FLONASE) 50 mcg/actuation nasal spray Use 1 Emmonak in each nostril once daily. No current facility-administered medications on file prior to visit. [facility] RX SPECIALTY CLINICAL ASSESSMENT - NEUROLOGY [...] inject where skin looks healthy. Training video ([employer] no longer supplies nurses for training, or injection devices) PFS supplied and training video https://www.ClearFlow/injectio n-assistance/exc-yy-netlug DDI none pertinent Vaccines reviewed Est. Tx Plan Start Date: No information available Estimated Start Date Info: No information available Est. Estimated Treatment Duration: No information available Madison Puente ([employer] Consultant) documented in this encounter [facility] 07-13-2024 History of Present illness Narrative Reason for Appointment: Patient ID: Carol Ann Martinez is a 38 y.o. female who presents for Routine Visit Patient presents today for Return OB appointment. MEDICATIONS Current Outpatient Medications Medication Instructions B Complex-C (b complex-vitamin c) tablet 1 tablet, Oral, Daily RT cetirizine (ZYRTEC) 10 mg, Oral, Daily clotrimazole-betamethasone (Lotrisone) cream 1 application , Topical, Daily, Apply to affected area daily for 7 days ergocalciferol (VITAMIN D-2) 50,000 Units, Oral, Weekly Ferrous Sulfate (IRON PO) 1 tablet, Oral, Daily RT magnesium oxide (Mag-Ox) 400 MG tablet 1 tablet, Oral, Nightly Multiple Vitamin (multivitamin) tablet 1 tablet, Oral, Daily Vit-Fe Fumarate-FA ( Plus/Iron) 27-1 MG tablet [...] MS (multiple sclerosis) (CMS/HCC) Urinary incontinence 2009 HISTORY PAST MEDICAL HISTORY [...] nursing note reviewed. Exam conducted with a development intern present. Vitals: Estimated body mass index is 17.97 kg/m as calculated from the following: Height as of 09/18/23: 5' 6.5 . Weight as of this encounter: 113 lb. BP: 108/66 Patient's last menstrual period was 02/09/2024. ASSESSMENT & PLAN ICD-10-CM 1. Diabetes mellitus screening Z13.1 CBC Glucose tolerance, 1 hour 2. Second trimester Z34.92 POCT urinalysis dipstick manually resulted 3. Short cervix affecting O26.879 Return OB: Patient presents today for a routine obstetrics appointment. Patient is currently 24w6d . Patient states she is doing well but has complaints of being tired due to current . Patient has verbalizes frequent movement. labor precautions was discussed/given and patient was instructed to perform kick counts three times a day. Cervical shortening still repeat cervical length given for in 2 weeks. Orders Placed This Encounter Procedures CBC Glucose tolerance, 1 hour POCT urinalysis dipstick manually resulted Follow Up: Patient is to return to office in 2 week for routine OB appointment. Documented by Aleyda Portillo LPN on behalf of: Clarke Hu DO documented in this encounter [facility] 06-22-2024 Telephone encounter Note The following approved medication requests have been transmitted electronically. Requested Prescriptions Signed Prescriptions Disp Refills glatiramer (COPAXONE) 40 mg/mL injection 12 mL 5 Sig: Inject 40 mg subcutaneously every Friday, Friday, and Friday. Authorizing Provider: TOR HERNANDEZ APRN.CNP [facility] 06-22-2024 Miscellaneous Notes The following approved [...] 06-09-24 Please review and advise. Juan Miguel Caballero RPh documented in this encounter [facility] 06-22-2024 Telephone encounter Note Patient is in need of a new prescription as follows: Requested Prescriptions Pending Prescriptions Disp Refills glatiramer (COPAXONE) 40 mg/mL injection 12 mL 5 Sig: Inject 40 mg subcutaneously every Friday, Friday, and Friday. Last office visit 06-09-24 Please review and advise. Juan Miguel Caballero RPh [facility] 06-14-2024 History of Present illness Narrative Returned with logs Called patient to return watch ACTIGRAPHY DEVICE #[id number] Date shipped out 05/25/2024 [employer] MAIL OUT TRACKING NUMBER [id number] [employer] RETURN TRACKING NUMBER [id number], Achasah documented in this encounter [facility] 06-11-2024 Telephone encounter Note This KNOCKOUT MAN put in a referral to the [facility] for pt to get connected to additional resources. DEZ Archer, [facility] Social Work [facility] 06-11-2024 Miscellaneous Notes This KNOCKOUT MAN put in a referral to the [facility] for pt to get connected to additional resources. DEZ Archer, SCRIPT WORKER [facility] Social Work documented in this encounter [facility] 06-10-2024 History of Present illness Narrative Mailed-nutritional supplement OTC TO PATIENT documented in this encounter [facility] 06-09-2024 Instructions Tor Hernandez APRN.CNP - 06/09/2024 3:40 PM EDT PLAN: - Continue Copaxone - plan to resume Ocrevus after delivery - Will hold on further MRI monitoring for now - Recommend oral nutritional supplement - Recommend continued close follow up with PCP and OB - Will reach out to [facility] re: finances/resources - Follow up soon after deliver documented in this encounter [facility] 06-09-2024 History of Present illness Narrative Images from the original note were not included. [facility] FOLLOWUP/ESTABLISHED VIRTUAL PATIENT VISIT PRINCIPAL NEUROLOGIC DIAGNOSIS: Multiple Sclerosis DISEASE SUMMARY Date of onset: 03/2007 Date of diagnosis of MS: 03/2007 Disease course at onset: Relapsing-Remitting Current disease course: Progressive without relapses Previous disease therapies: - Betaseron 5576-7656 - Copaxone 1776-8620 - Tysabri 2009-Summer 2019 (stopped due to planned ) - Copaxone 3734-1404 (during ) - Ocrevus (02/28/21 through 09/25/23, d/c'd for ) Current disease therapy: Copaxone (03/2024-present) Most recent MRI brain: 01/02/23 (stable) Most recent MRI cervical spine: 01/02/23 (stable) Most recent MRI thoracic spine: 01/19/24 CSF: NA JCV: 02/14/2021 0.28, stratify negative Brief Disease History: - 2006 lower extremity numbness evolving over 3 weeks following occipital relase - 9615-7388 recurrent OS ON - 8254-5884 several relapses including L numbness, weakness, constipation, urinary urgency - 2019 R weakness and numbness needing a wheelchair, hospitalized at [facility] (off Tysabri x3 months due to planning ). Also had OD vision loss at this time. At this time also notes substantial mold exposure due to it being all over her apt (has since moved). CHIEF COMPLAINT: MS symptom management Usual treating team: Christina Today's visit is being completed virtually over meevl. I have communicated my name and active licensure. The patient's identity and physical location were verified at the time of this visit. Either the patient or their legal sales representative raw fibers has been informed of the risks and [...] Flowsheet Row Social Work from 01/21/2024 in [facility] Office Visit from 07/23/2023 in [facility] Office Visit from 01/17/2023 in [facility] Upper Extremity Domain T Score [...] Flowsheet Row Social Work from 01/21/2024 in [facility] Office Visit from 07/23/2023 in [facility] Office Visit from 01/17/2023 in [facility] Sleep Domain T Score 66 [...] Edema of lower extremity (04/17/2021), Multiple sclerosis ([facility]), Seizure ([facility]), and Thyroid disease. She has no past medical history of Asthma, Blood dyscrasia, Breast disorder, Chlamydia, Chronic kidney disease, Complication of anesthesia, Coronary artery disease, Diabetes ([facility]), Diabetes, gestational, Gonorrhea, Herpes simplex virus (HSV) infection, History of pre-eclampsia in prior , currently , HIV infection ([facility]), Hypertension, Infertility, female, Liver disease, Malignant hyperthermia due to anesthesia, Mental disorder, Placental abruption, depression, hemorrhage, Rh incompatibility, Sickle cell anemia ([facility]), Syphilis, or Systemic lupus erythematosus ([facility]). has a current medication list which includes the following prescription(s): OTC NUTRITIONAL SUPPLEMENT, glatiramer, magnesium oxide, cholecalciferol, ketoconazole, mirtazapine, norethindrone (contraceptive), vitamin b complex with c-fa-cu-zn renal vitamins, ferrous sulfate, multiple vitamin-minerals, dalfampridine er, norethindrone (contraceptive), ketoconazole, tizanidine, ocrelizumab, vitamin b complex, melatonin, and fluticasone. EXAM: LMP 12/21/2023 (Exact Date) MSPT Results Flowsheet Row Office Visit from 07/23/2023 in [facility] Office Visit from 01/17/2023 in [facility] Processing Speed Total Number Correct [...] intellectual function Affect: Normal RESULTS: [facility]24 A1c (5.2), [...] and OB - Will reach out to [facility] re: finances/resources - Follow up soon after deliver No orders found for this visit on 06/09/24. I spent a total of 40 minutes on the date of the service which included preparing to see the patient, llph-nu-worb patient care, completing clinical documentation, obtaining and/or reviewing separately obtained history, performing a medically appropriate examination, counseling and educating the patient/family/caregiver, communicating with other HCPs (not separately reported), independently interpreting results (not separately reported), and communicating results to the patient/family/caregiver. Tor Hernandez APRN.[facility] Multiple Sclerosis documented in this encounter [facility] 06-08-2024 Instructions Mercy Urbina MD - 06/08/2024 1:16 PM EDT ABHI [...] is done to review results. - Call [phone] to schedule your sleep study and follow [...] the central scheduling system for the [facility] at [phone]. [facility] website: [email or web address] documented in this encounter [facility] 06-08-2024 History of Present illness Narrative Images from the original note were not included. [facility] Follow up/ Established patient visit Date of last visit : 08/19/2023 I have communicated my name and active licensure. The patient's identity and physical location were verified at the time of this visit. Either the patient or their legal sales representative raw fibers has been informed of the risks and [...] Syndrome Abnormal sleep/wake timing 03/19/2024 04/13/2024 05/23/2024 [place] Sleepiness Scale Score 0 (No clinically significant [...] (FLONASE) 50 mcg/actuation nasal spray Use 1 Emmonak in each nostril once daily. Prior Hypersomnia/Narcolepsy [...] to ensure your preferred time and location. Mercy Urbina MD documented in this encounter [facility] 05-24-2024 History of Present illness [...] laboratory parameters, disease state markers and outcomes. Business Management Intern Assessment Patient confirmed: Yes Med/dose confirmed: Yes Supplies needed: Alcohol swabs Missed doses: No Estimated days supply on hand: 10 Next cycle/dose due: 05/26/24 Copay amount: 0 Delivery method: FedEx Signature required: Waived on patient request Delivery address: [address] [place] [address] Delivery date: 06/01/24 Questions or concerns for [...] (FLONASE) 50 mcg/actuation nasal spray Use 1 Emmonak in each nostril once daily. No current facility-administered medications on file prior to visit. [facility] Visit Assessment - Neurology: [...] inject where skin looks healthy. Training video ([employer] no longer supplies nurses for training, or injection devices) PFS supplied and training video [email or web address]://www.[email or web address]/injectio n-assistance/nre-dh-phsrsd DDI none pertinent Vaccines reviewed Jus Saucedo CPhT Neurology, Cardiology & Infectious Disease [facility] documented in this encounter [facility] 04-26-2024 History of Present illness [...] laboratory parameters, disease state markers and outcomes. Business Management Intern Assessment Patient confirmed: Yes Med/dose confirmed: Yes Supplies needed: No supplies needed Missed doses: Yes Count of missed doses: 1 Reason for missed doses: stated medication misfired Estimated days supply on hand: 4 Next cycle/dose due: 04/26/24 Copay amount: 0 Payment confirmed: Yes Delivery method: FedEx Signature required: Waived on patient request Delivery address: [address] [place] [id number] Delivery date: 04/28/24 Questions or concerns for [...] (FLONASE) 50 mcg/actuation nasal spray Use 1 Emmonak in each nostril once daily. No current facility-administered medications on file prior to visit. [facility] Visit Assessment - Neurology: [...] inject where skin looks healthy. Training video ([employer] no longer supplies nurses for training, or injection devices) PFS supplied and training video [email or web address]://www.ClearFlow/injectio n-assistance/ncl-cq-eqrqfx DDI none pertinent Vaccines reviewed Jazmine Mcclure CPhT Cardiology, Neurology & Infectious Disease [facility] documented in this encounter [facility] 03-31-2024 History of Present illness Narrative [facility] received prescription(s) for Glatiramer from Dr. Tor Hernandez office. Benefits investigation was conducted, indicating we will need to call to verify if a prior authorization is required/needed by pt's plan with [facility] . Thang Williamson CP (Dee)[facility] Neurology/Cardiology/Infections Disease [facility] P: F: [place] for pt's Glatiramer has been approved by [employer]. Reuben 03/31/24 - 11/09/24. Madison Puente [facility] Battery Mechanic, Specialty Pharmacy [facility] [address] / [id number] [place] [address] Email: documented in this encounter [facility] 03-30-2024 History of Present illness Narrative Faxed Glatiramer Acetate form with ins info documented in this encounter [facility] 03-30-2024 Instructions Tor Hernandez APRN.[facility] - 03/30/2024 2:27 PM EDT PLAN: - Stop Ocrevus for now - Will hold on further MRI monitoring for now - Will submit for Copaxone during - Stop Ampyra and tizanidine - Continue vitamin D and magnesium - Follow up in 8-9 months virtually documented in this encounter [facility] 03-30-2024 History of Present illness Narrative Images from the original note were not included. [facility] FOLLOWUP/ESTABLISHED VIRTUAL PATIENT VISIT PRINCIPAL NEUROLOGIC DIAGNOSIS: Multiple Sclerosis DISEASE SUMMARY Date of onset: 03/2007 Date of diagnosis of MS: 03/2007 Disease course at onset: Relapsing-Remitting Current disease course: Progressive without relapses Previous disease therapies: - Betaseron 5490-8688 - Copaxone - Tysabri 2009-Summer 2019 (stopped [...] over 3 weeks following occipital relase - 6316-6009 recurrent OS ON - several relapses including L numbness, weakness, constipation, urinary urgency - 2019 R weakness and numbness needing a wheelchair, hospitalized at [facility] (off Tysabri x3 months due to planning ). Also had OD vision loss at this time. At this time also notes substantial mold exposure due to it being all over her apt (has since moved). CHIEF COMPLAINT: Follow up, discussion on recent + Usual treating team: Christina Today's visit is being completed virtually over [employer]. I have communicated my name and active licensure. The patient's identity and physical location were verified at the time of this visit. Either the patient or their legal sales representative raw fibers has been informed of the risks and [...] to that Is trying to find a process trainer as she knows she needs to improve her strength Last took Copaxone and felt good Would like to continue Copaxone again this - will need her home visits nurse to administer injections Does plan to breastfeed after this Recalls her MS symptoms were stable until ~ 3 months pp Neuro-QoL Functions (higher=better functioning) Flowsheet Row Social Work from 01/21/2024 in [facility] Office Visit from 07/23/2023 in [facility] Office Visit from 01/17/2023 in [facility] Upper Extremity Domain T Score [...] Flowsheet Row Social Work from 01/21/2024 in [facility] Office Visit from 07/23/2023 in [facility] Office Visit from 01/17/2023 in [facility] Sleep Domain T Score 66 [...] Edema of lower extremity (04/17/2021), Multiple sclerosis ([facility]), Seizure ([facility]), and Thyroid disease. She has no past medical history of Asthma, Blood dyscrasia, Breast disorder, Chlamydia, Chronic kidney disease, Complication of anesthesia, Coronary artery disease, Diabetes ([facility]), Diabetes, gestational, Gonorrhea, Herpes simplex virus (HSV) infection, History of pre-eclampsia in prior , currently , HIV infection ([facility]), Hypertension, Infertility, female, Liver disease, Malignant hyperthermia due to anesthesia, Mental disorder, Placental abruption, depression, hemorrhage, Rh incompatibility, Sickle cell anemia ([facility]), Syphilis, or Systemic lupus erythematosus ([facility]). has a current medication list which includes the following prescription(s): ketoconazole, ferrous sulfate, ketoconazole, melatonin, fluticasone, magnesium oxide, polyethylene glycol 3350, cholecalciferol, mirtazapine, norethindrone (contraceptive), vitamin b complex with c-fa-cu-zn renal vitamins, multiple vitamin-minerals, dalfampridine er, norethindrone (contraceptive), tizanidine, ocrelizumab, and vitamin b complex. EXAM: LMP 12/21/2023 (Exact Date) Multiple Sclerosis Performance Test Flowsheet Row Office Visit from 07/23/2023 in [facility] Office Visit from 01/17/2023 in [facility] Processing Speed Total Number Correct [...] D supplementation Follow-up: In 9 months at [place] or Virtual Visit with [facility] APC I spent a total of 40 minutes on the date of the service which included preparing to see the patient, ilim-sj-lvif patient care, completing clinical documentation, obtaining and/or reviewing separately obtained history, performing a medically appropriate examination, counseling and educating the patient/family/caregiver, and ordering medications, tests, or procedures. Tor Hernandez APRN.[facility] Multiple Sclerosis documented in this encounter [facility] 03-24-2024 Telephone encounter Note Patient calls to cancel her Ocrevus infusion scheduled for Friday due to having a positive test stating she doesn't believe she can receive this infusion while . Appointment cancelled. Maricruz Castillo [facility] 03-24-2024 Miscellaneous Notes Patient calls to cancel her Ocrevus infusion scheduled for Friday due to having a positive test stating she doesn't believe she can receive this infusion while . Appointment cancelled. Maricruz Castillo documented in this encounter [facility] 03-22-2024 Instructions Mickie Medrano APRN.CNP - 03/22/2024 2:44 PM EDT Contact information for sleep disorders center: For questions regarding your care call [phone] option X 5 To schedule an appointment with the sleep center call [phone] RLS treatment: Start magnesium supplements (500mg-1000mg daily). [...] and physical conditioning documented in this encounter [facility] 03-22-2024 History of Present illness Narrative Images from the original note were not included. [facility] Follow up/ Established [...] which included preparing to see the patient, pxzx-oq-laki patient care, completing clinical documentation, counseling and educating the patient/family/caregiver, and ordering medications, tests, or procedures. Mercy Urbina MD I have communicated my name and active licensure. The patient's identity and physical location were verified at the time of this visit. Either the patient or their legal sales representative raw fibers has been informed of the risks and [...] to follow up with sleep provider Dr. Urbina for management of RLS and to discuss [...] Abnormal behaviors/movements during sleep 01/03/2020 08/11/2023 03/19/2024 Dav[place] Sleepiness Scale Score 0 (No clinically significant [...] (FLONASE) 50 mcg/actuation nasal spray Use 1 Emmonak in each nostril once daily. PHYSICAL EXAMINATION: [...] this is possible. Follow up with Dr Urbina scheduled 06/08/24. Mickie Medrano APRN.[facility] Activity Duration Chart accessed < 1 minute Chart accessed 15 minutes Chart accessed 2 minutes Chart accessed 1 minute Chart accessed 2 minutes Chart accessed < 1 minute Total time: 22 minutes documented in this encounter [facility] 03-04-2024 History of Present illness [...] PATIENT PRESENTS WITH AN IMPLANTABLE OR ATTACHED PRESIDING STEWARD: No RADIOLOGY DEPARTMENT: General X-ray: Exam(s) Completed: Spine X-Ray(s): Cervical AP / LAT / OBL and Lumbar AP / LAT / L5-S1 PERIPHERAL IV DATA: Not applicable SIGNED BY: RT Keysha(R) March 04, 2024 2:06 PM documented in this encounter [facility] 03-04-2024 History of Present illness [...] as scheduled for next physical. Patient Instructions [facility] FACTS Please visit our lab at least 3-5 days before your scheduled appointment to have your lab work drawn, if lab work is ordered. This will allow us the ability to review your lab work results with you during your scheduled visit. [facility] HOURS: Lab is open Friday - Friday from 6:30am to 5pm and open 8am -12pm on Saturdays. [facility] HOURS: Friday- 7:30am to 5:30pm. Fridays [...] Janice Lane MD documented in this encounter [facility] 03-04-2024 Instructions Cintia Cadena MA - 03/04/2024 1:00 PM EDT [facility] FACTS Please visit our lab at least 3-5 days before your scheduled appointment to have your lab work drawn, if lab work is ordered. This will allow us the ability to review your lab work results with you during your scheduled visit. [facility] HOURS: Lab is open Friday - Friday from 6:30am to 5pm and open 8am -12pm on Saturdays. [facility] HOURS: Friday- 7:30am to 5:30pm. Fridays [...] and main campus. documented in this encounter [facility] 02-26-2024 Miscellaneous Notes Addended by: TOR HERNANDEZ on: 02/26/2024 10:24 AM Modules accepted: Orders Non-[facility] PT, OT, and PAYROLL ACCOUNTING MANAGER orders placed Tor Hernandez APRN.CNP February 26, 2024 10:23 AM Spoke with [facility], Iris Edge regarding this message. Iris stated she encouraged pt to reach out to her insurance company and request an insurance CM to help her find an outside provider to provide services. Request sent to Tor Hernandez APRN.CNP for orders: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 information is protected by the Federal Confidentiality of Alcohol and Drug Abuse Patient Records regulations: The Federal rules restrict any use of the information to criminally investigate or prosecute any alcohol or drug abuse patient.[facility] HospitalIn the event this information is protected by the Federal Confidentiality of Alcohol and Drug Abuse Patient Records regulations: The Federal rules restrict any use of the information to criminally investigate or prosecute any alcohol or drug abuse patient.[facility] HospitalIn the event this information is protected by the Federal Confidentiality of Alcohol and Drug Abuse Patient Records regulations: The Federal rules restrict any use of the information to criminally investigate or prosecute any alcohol or drug abuse patient.[facility] HospitalIn the event this information is protected by the Federal Confidentiality of Alcohol and Drug Abuse Patient Records regulations: The Federal rules restrict any use of the information to criminally investigate or prosecute any alcohol or drug abuse patient.[facility] HospitalIn the event this information is protected by the Federal Confidentiality of Alcohol and Drug Abuse Patient Records regulations: The Federal rules restrict any use of the information to criminally investigate or prosecute any alcohol or drug abuse patient.[facility] HospitalIn the event this information is protected by the Federal Confidentiality of Alcohol and Drug Abuse Patient Records regulations: The Federal rules restrict any use of the information to criminally investigate or prosecute any alcohol or drug abuse patient.[facility] HospitalIn the event this information is protected by the Federal Confidentiality of Alcohol and Drug Abuse Patient Records regulations: The Federal rules restrict any use of the information to criminally investigate or prosecute any alcohol or drug abuse patient.[facility] HospitalIn the event this information is protected by the Federal Confidentiality of Alcohol and Drug Abuse Patient Records regulations: The Federal rules restrict any use of the information to criminally investigate or prosecute any alcohol or drug abuse patient.[facility] HospitalIn the event this information is protected by the Federal Confidentiality of Alcohol and Drug Abuse Patient Records regulations: The Federal rules restrict any use of the information to criminally investigate or prosecute any alcohol or drug abuse patient.[facility] HospitalIn the event this information is protected by the Federal Confidentiality of Alcohol and Drug Abuse Patient Records regulations: The Federal rules restrict any use of the information to criminally investigate or prosecute any alcohol or drug abuse patient.[facility] HospitalIn the event this information is protected by the Federal Confidentiality of Alcohol and Drug Abuse Patient Records regulations: The Federal rules restrict any use of the information to criminally investigate or prosecute any alcohol or drug abuse patient.[facility] HospitalIn the event this information is protected by the Federal Confidentiality of Alcohol and Drug Abuse Patient Records regulations: The Federal rules restrict any use of the information to criminally investigate or prosecute any alcohol or drug abuse patient.[facility] HospitalIn the event this information is protected by the Federal Confidentiality of Alcohol and Drug Abuse Patient Records regulations: The Federal rules restrict any use of the information to criminally investigate or prosecute any alcohol or drug abuse patient.[facility] HospitalIn the event this information is protected by the Federal Confidentiality of Alcohol and Drug Abuse Patient Records regulations: The Federal rules restrict any use of the information to criminally investigate or prosecute any alcohol or drug abuse patient.[facility] HospitalIn the event this information is protected by the Federal Confidentiality of Alcohol and Drug Abuse Patient Records regulations: The Federal rules restrict any use of the information to criminally investigate or prosecute any alcohol or drug abuse patient.[facility] HospitalIn the event this information is protected by the Federal Confidentiality of Alcohol and Drug Abuse Patient Records regulations: The Federal rules restrict any use of the information to criminally investigate or prosecute any alcohol or drug abuse patient.[facility] HospitalIn the event this information is protected by the Federal Confidentiality of Alcohol and Drug Abuse Patient Records regulations: The Federal rules restrict any use of the information to criminally investigate or prosecute any alcohol or drug abuse patient.[facility] HospitalIn the event this information is protected by the Federal Confidentiality of Alcohol and Drug Abuse Patient Records regulations: The Federal rules restrict any use of the information to criminally investigate or prosecute any alcohol or drug abuse patient.[facility] HospitalIn the event this information is protected by the Federal Confidentiality of Alcohol and Drug Abuse Patient Records regulations: The Federal rules restrict any use of the information to criminally investigate or prosecute any alcohol or drug abuse patient.[facility] HospitalIn the event this information is protected by the Federal Confidentiality of Alcohol and Drug Abuse Patient Records regulations: The Federal rules restrict any use of the information to criminally investigate or prosecute any alcohol or drug abuse patient.[facility] HospitalIn the event this information is protected by the Federal Confidentiality of Alcohol and Drug Abuse Patient Records regulations: The Federal rules restrict any use of the information to criminally investigate or prosecute any alcohol or drug abuse patient.[facility] HospitalIn the event this information is protected by the Federal Confidentiality of Alcohol and Drug Abuse Patient Records regulations: The Federal rules restrict any use of the information to criminally investigate or prosecute any alcohol or drug abuse patient.[facility] HospitalIn the event this information is protected by the Federal Confidentiality of Alcohol and Drug Abuse Patient Records regulations: The Federal rules restrict any use of the information to criminally investigate or prosecute any alcohol or drug abuse patient.[facility] HospitalIn the event this information is protected by the Federal Confidentiality of Alcohol and Drug Abuse Patient Records regulations: The Federal rules restrict any use of the information to criminally investigate or prosecute any alcohol or drug abuse patient.[facility] HospitalIn the event this information is protected by the Federal Confidentiality of Alcohol and Drug Abuse Patient Records regulations: The Federal rules restrict any use of the information to criminally investigate or prosecute any alcohol or drug abuse patient.[facility] HospitalIn the event this information is protected by the Federal Confidentiality of Alcohol and Drug Abuse Patient Records regulations: The Federal rules restrict any use of the information to criminally investigate or prosecute any alcohol or drug abuse patient.[facility] HospitalIn the event this information is protected by the Federal Confidentiality of Alcohol and Drug Abuse Patient Records regulations: The Federal rules restrict any use of the information to criminally investigate or prosecute any alcohol or drug abuse patient.[facility] HospitalIn the event this information is protected by the Federal Confidentiality of Alcohol and Drug Abuse Patient Records regulations: The Federal rules restrict any use of the information to criminally investigate or prosecute any alcohol or drug abuse patient.[facility] HospitalIn the event this information is protected by the Federal Confidentiality of Alcohol and Drug Abuse Patient Records regulations: The Federal rules restrict any use of the information to criminally investigate or prosecute any alcohol or drug abuse patient.[facility] HospitalIn the event this information is protected by the Federal Confidentiality of Alcohol and Drug Abuse Patient Records regulations: The Federal rules restrict any use of the information to criminally investigate or prosecute any alcohol or drug abuse patient.[facility] HospitalIn the event this information is protected by the Federal Confidentiality of Alcohol and Drug Abuse Patient Records regulations: The Federal rules restrict any use of the information to criminally investigate or prosecute any alcohol or drug abuse patient.[facility] HospitalIn the event this information is protected by the Federal Confidentiality of Alcohol and Drug Abuse Patient Records regulations: The Federal rules restrict any use of the information to criminally investigate or prosecute any alcohol or drug abuse patient.[facility] HospitalIn the event this information is protected by the Federal Confidentiality of Alcohol and Drug Abuse Patient Records regulations: The Federal rules restrict any use of the information to criminally investigate or prosecute any alcohol or drug abuse patient.[facility] HospitalIn the event this information is protected by the Federal Confidentiality of Alcohol and Drug Abuse Patient Records regulations: The Federal rules restrict any use of the information to criminally investigate or prosecute any alcohol or drug abuse patient.[facility] HospitalIn the event this information is protected by the Federal Confidentiality of Alcohol and Drug Abuse Patient Records regulations: The Federal rules restrict any use of the information to criminally investigate or prosecute any alcohol or drug abuse patient.[facility] HospitalIn the event this information is protected by the Federal Confidentiality of Alcohol and Drug Abuse Patient Records regulations: The Federal rules restrict any use of the information to criminally investigate or prosecute any alcohol or drug abuse patient.[facility] HospitalIn the event this information is protected by the Federal Confidentiality of Alcohol and Drug Abuse Patient Records regulations: The Federal rules restrict any use of the information to criminally investigate or prosecute any alcohol or drug abuse patient.[facility] HospitalIn the event this information is protected by the Federal Confidentiality of Alcohol and Drug Abuse Patient Records regulations: The Federal rules restrict any use of the information to criminally investigate or prosecute any alcohol or drug abuse patient.[facility] HospitalIn the event this information is protected by the Federal Confidentiality of Alcohol and Drug Abuse Patient Records regulations: The Federal rules restrict any use of the information to criminally investigate or prosecute any alcohol or drug abuse patient.[facility] HospitalIn the event this information is protected by the Federal Confidentiality of Alcohol and Drug Abuse Patient Records regulations: The Federal rules restrict any use of the information to criminally investigate or prosecute any alcohol or drug abuse patient.[facility]In the event this information is protected by the Federal Confidentiality of Alcohol and Drug Abuse Patient Records regulations: The Federal rules restrict any use of the information to criminally investigate or prosecute any alcohol or drug abuse patient.[facility] HospitalIn the event this information is protected by the Federal Confidentiality of Alcohol and Drug Abuse Patient Records regulations: The Federal rules restrict any use of the information to criminally investigate or prosecute any alcohol or drug abuse patient.[facility] HospitalIn the event this information is protected by the Federal Confidentiality of Alcohol and Drug Abuse Patient Records regulations: The Federal rules restrict any use of the information to criminally investigate or prosecute any alcohol or drug abuse patient.[facility]In the event this information is protected by the Federal Confidentiality of Alcohol and Drug Abuse Patient Records regulations: The Federal rules restrict any use of the information to criminally investigate or prosecute any alcohol or drug abuse patient.[facility] HospitalIn the event this information is protected by the Federal Confidentiality of Alcohol and Drug Abuse Patient Records regulations: The Federal rules restrict any use of the information to criminally investigate or prosecute any alcohol or drug abuse patient.[facility] HospitalIn the event this information is protected by the Federal Confidentiality of Alcohol and Drug Abuse Patient Records regulations: The Federal rules restrict any use of the information to criminally investigate or prosecute any alcohol or drug abuse patient.[facility] HospitalIn the event this information is protected by the Federal Confidentiality of Alcohol and Drug Abuse Patient Records regulations: The Federal rules restrict any use of the information to criminally investigate or prosecute any alcohol or drug abuse patient.[facility] HospitalIn the event this information is protected by the Federal Confidentiality of Alcohol and Drug Abuse Patient Records regulations: The Federal rules restrict any use of the information to criminally investigate or prosecute any alcohol or drug abuse patient.[facility] HospitalIn the event this information is protected by the Federal Confidentiality of Alcohol and Drug Abuse Patient Records regulations: The Federal rules restrict any use of the information to criminally investigate or prosecute any alcohol or drug abuse patient.[facility] HospitalIn the event this information is protected by the Federal Confidentiality of Alcohol and Drug Abuse Patient Records regulations: The Federal rules restrict any use of the information to criminally investigate or prosecute any alcohol or drug abuse patient.[facility] HospitalIn the event this information is protected by the Federal Confidentiality of Alcohol and Drug Abuse Patient Records regulations: The Federal rules restrict any use of the information to criminally investigate or prosecute any alcohol or drug abuse patient.[facility] HospitalIn the event this information is protected by the Federal Confidentiality of Alcohol and Drug Abuse Patient Records regulations: The Federal rules restrict any use of the information to criminally investigate or prosecute any alcohol or drug abuse patient.[facility] HospitalIn the event this information is protected by the Federal Confidentiality of Alcohol and Drug Abuse Patient Records regulations: The Federal rules restrict any use of the information to criminally investigate or prosecute any alcohol or drug abuse patient.[facility] HospitalIn the event this information is protected by the Federal Confidentiality of Alcohol and Drug Abuse Patient Records regulations: The Federal rules restrict any use of the information to criminally investigate or prosecute any alcohol or drug abuse patient.[facility] HospitalIn the event this information is protected by the Federal Confidentiality of Alcohol and Drug Abuse Patient Records regulations: The Federal rules restrict any use of the information to criminally investigate or prosecute any alcohol or drug abuse patient.[facility]In the event this information is protected by the Federal Confidentiality of Alcohol and Drug Abuse Patient Records regulations: The Federal rules restrict any use of the information to criminally investigate or prosecute any alcohol or drug abuse patient.[facility] HospitalIn the event this information is protected by the Federal Confidentiality of Alcohol and Drug Abuse Patient Records regulations: The Federal rules restrict any use of the information to criminally investigate or prosecute any alcohol or drug abuse patient.[facility] HospitalIn the event this information is protected by the Federal Confidentiality of Alcohol and Drug Abuse Patient Records regulations: The Federal rules restrict any use of the information to criminally investigate or prosecute any alcohol or drug abuse patient.[facility] HospitalIn the event this information is protected by the Federal Confidentiality of Alcohol and Drug Abuse Patient Records regulations: The Federal rules restrict any use of the information to criminally investigate or prosecute any alcohol or drug abuse patient.[facility] HospitalIn the event this information is protected by the Federal Confidentiality of Alcohol and Drug Abuse Patient Records regulations: The Federal rules restrict any use of the information to criminally investigate or prosecute any alcohol or drug abuse patient.[facility] HospitalIn the event this information is protected by the Federal Confidentiality of Alcohol and Drug Abuse Patient Records regulations: The Federal rules restrict any use of the information to criminally investigate or prosecute any alcohol or drug abuse patient.[facility] HospitalIn the event this information is protected by the Federal Confidentiality of Alcohol and Drug Abuse Patient Records regulations: The Federal rules restrict any use of the information to criminally investigate or prosecute any alcohol or drug abuse patient.[facility] HospitalIn the event this information is protected by the Federal Confidentiality of Alcohol and Drug Abuse Patient Records regulations: The Federal rules restrict any use of the information to criminally investigate or prosecute any alcohol or drug abuse patient.[facility] HospitalIn the event this information is protected by the Federal Confidentiality of Alcohol and Drug Abuse Patient Records regulations: The Federal rules restrict any use of the information to criminally investigate or prosecute any alcohol or drug abuse patient.[facility] HospitalIn the event this information is protected by the Federal Confidentiality of Alcohol and Drug Abuse Patient Records regulations: The Federal rules restrict any use of the information to criminally investigate or prosecute any alcohol or drug abuse patient.[facility] HospitalIn the event this information is protected by the Federal Confidentiality of Alcohol and Drug Abuse Patient Records regulations: The Federal rules restrict any use of the information to criminally investigate or prosecute any alcohol or drug abuse patient.[facility] HospitalIn the event this information is protected by the Federal Confidentiality of Alcohol and Drug Abuse Patient Records regulations: The Federal rules restrict any use of the information to criminally investigate or prosecute any alcohol or drug abuse patient.[facility] HospitalIn the event this information is protected by the Federal Confidentiality of Alcohol and Drug Abuse Patient Records regulations: The Federal rules restrict any use of the information to criminally investigate or prosecute any alcohol or drug abuse patient.[facility] HospitalIn the event this information is protected by the Federal Confidentiality of Alcohol and Drug Abuse Patient Records regulations: The Federal rules restrict any use of the information to criminally investigate or prosecute any alcohol or drug abuse patient.[facility] HospitalIn the event this information is protected by the Federal Confidentiality of Alcohol and Drug Abuse Patient Records regulations: The Federal rules restrict any use of the information to criminally investigate or prosecute any alcohol or drug abuse patient.[facility] HospitalIn the event this information is protected by the Federal Confidentiality of Alcohol and Drug Abuse Patient Records regulations: The Federal rules restrict any use of the information to criminally investigate or prosecute any alcohol or drug abuse patient.[facility] HospitalIn the event this information is protected by the Federal Confidentiality of Alcohol and Drug Abuse Patient Records regulations: The Federal rules restrict any use of the information to criminally investigate or prosecute any alcohol or drug abuse patient.[facility] HospitalIn the event this information is protected by the Federal Confidentiality of Alcohol and Drug Abuse Patient Records regulations: The Federal rules restrict any use of the information to criminally investigate or prosecute any alcohol or drug abuse patient.[facility] HospitalIn the event this information is protected by the Federal Confidentiality of Alcohol and Drug Abuse Patient Records regulations: The Federal rules restrict any use of the information to criminally investigate or prosecute any alcohol or drug abuse patient.[facility] HospitalIn the event this information is protected by the Federal Confidentiality of Alcohol and Drug Abuse Patient Records regulations: The Federal rules restrict any use of the information to criminally investigate or prosecute any alcohol or drug abuse patient.[facility] HospitalIn the event this information is protected by the Federal Confidentiality of Alcohol and Drug Abuse Patient Records regulations: The Federal rules restrict any use of the information to criminally investigate or prosecute any alcohol or drug abuse patient.[facility] HospitalIn the event this information is protected by the Federal Confidentiality of Alcohol and Drug Abuse Patient Records regulations: The Federal rules restrict any use of the information to criminally investigate or prosecute any alcohol or drug abuse patient.[facility] HospitalIn the event this information is protected by the Federal Confidentiality of Alcohol and Drug Abuse Patient Records regulations: The Federal rules restrict any use of the information to criminally investigate or prosecute any alcohol or drug abuse patient.[facility] HospitalIn the event this information is protected by the Federal Confidentiality of Alcohol and Drug Abuse Patient Records regulations: The Federal rules restrict any use of the information to criminally investigate or prosecute any alcohol or drug abuse patient.[facility] HospitalIn the event this information is protected by the Federal Confidentiality of Alcohol and Drug Abuse Patient Records regulations: The Federal rules restrict any use of the information to criminally investigate or prosecute any alcohol or drug abuse patient.[facility] HospitalIn the event this information is protected by the Federal Confidentiality of Alcohol and Drug Abuse Patient Records regulations: The Federal rules restrict any use of the information to criminally investigate or prosecute any alcohol or drug abuse patient.[facility] HospitalIn the event this information is protected by the Federal Confidentiality of Alcohol and Drug Abuse Patient Records regulations: The Federal rules restrict any use of the information to criminally investigate or prosecute any alcohol or drug abuse patient.[facility] HospitalIn the event this information is protected by the Federal Confidentiality of Alcohol and Drug Abuse Patient Records regulations: The Federal rules restrict any use of the information to criminally investigate or prosecute any alcohol or drug abuse patient.[facility] HospitalIn the event this information is protected by the Federal Confidentiality of Alcohol and Drug Abuse Patient Records regulations: The Federal rules restrict any use of the information to criminally investigate or prosecute any alcohol or drug abuse patient.[facility] HospitalIn the event this information is protected by the Federal Confidentiality of Alcohol and Drug Abuse Patient Records regulations: The Federal rules restrict any use of the information to criminally investigate or prosecute any alcohol or drug abuse patient.[facility] HospitalIn the event this information is protected by the Federal Confidentiality of Alcohol and Drug Abuse Patient Records regulations: The Federal rules restrict any use of the information to criminally investigate or prosecute any alcohol or drug abuse patient.[facility] HospitalIn the event this information is protected by the Federal Confidentiality of Alcohol and Drug Abuse Patient Records regulations: The Federal rules restrict any use of the information to criminally investigate or prosecute any alcohol or drug abuse patient.[facility] HospitalIn the event this information is protected by the Federal Confidentiality of Alcohol and Drug Abuse Patient Records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 [address] PCP - General Family Medicine 12/09/19 Cement Patcher Relationship Specialty Start Date End Date Janice Lane MD [address] [facility] [place] [address] PCP - General Family Medicine 12/09/19 Cement Patcher Relationship Specialty Start Date End Date Janice Lane MD [address] [facility] [place] [address] PCP - General Family Medicine 12/09/19 Cement Patcher Relationship Specialty Start Date End Date Janice Lane MD [address] [facility] [place] [address] PCP - General Family Medicine 12/09/19 Cement Patcher Relationship Specialty Start Date End Date Jnaice Lane MD [address] [facility] [place] [address] PCP - General Family Medicine 12/09/19 Cement Patcher Relationship Specialty Start Date End Date Janice Lane MD [address] [facility] [place] [address] PCP - General Family Medicine 12/09/19 Cement Patcher Relationship Specialty Start Date End Date Janice Lane MD [address] [facility] [place] [address] PCP - General Family Medicine 12/09/19 Cement Patcher Relationship Specialty Start Date End Date Janice Lane MD [address] [facility] [place] [address] PCP - General Family Medicine 12/09/19 Cement Patcher Relationship Specialty [place] [address] [place] [address] PCP - General Pediatrics 10/26/23 Cement Patcher Relationship Specialty [place] [address] [place] [address] PCP - General Pediatrics 10/26/23 Cement Patcher Relationship Specialty Start Date End Date Janice Lane MD [address] [facility] [place] [address] PCP - General Family Medicine 12/09/19 Cement Patcher Relationship Specialty Start Date End Date Janice Lane MD [address] [facility] [place] [address] PCP - General Family Medicine 12/09/19 Cement Patcher Relationship Specialty Start Date End Date Janice Lane MD [address] [facility] [place] [address] PCP - General Family Medicine 12/09/19 Cement Patcher Relationship Specialty Start Date End Date Janice Lane MD [address] [facility] [place] [address] PCP - General Family Medicine 12/09/19 Cement Patcher Relationship Specialty Start Date End Date Janice Lane MD [address] [facility] [place] [address] PCP - General Family Medicine 12/09/19 Cement Patcher Relationship Specialty Start Date End Date Janice Lane MD [address] [facility] [place] [address] PCP - General Family Medicine 12/09/19 Cement Patcher Relationship Specialty Start Date End Date Janice Lane MD [address] [facility] [place] [address] PCP - General Family Medicine 12/09/19 Team Status: Inactive Member Role Status Raj Lane MD Primary Care Provider Active Start: February 24, 2024 End: February 24, 2024 Clarke Hu Attending Provider Active Start: [facility] 2023 End: February 24, 2024 Cement Patcher Relationship Specialty Start Date End Date Janice Lane MD [address] [facility] [place] [address] PCP - General Family Medicine 12/09/19 Team Status: Inactive Member Role Status Raj Lane , MD Primary Care Provider Active Start: March 17, 2024 End: March 17, 2024 Clarke Hu Attending Provider Active Start: Virgen campbell 2023 End: March 17, 2024 Cement Patcher Relationship Specialty Start Date End Date Janice Lane MD [address] [facility] [place] [address] PCP - General Family Medicine 12/09/19 Cement Patcher Relationship Specialty Start Date End Date Janice Lane MD [address] [facility] [place] [address] PCP - General Family Medicine 12/09/19 Cement Patcher Relationship Specialty Start Date End Date Janice Lane MD [address] [facility] [place] [address] PCP - General Family Medicine 12/09/19 Cement Patcher Relationship Specialty Start Date End Date Janice Lane MD [address] [facility] [place] [address] PCP - General Family Medicine 12/09/19 Juan Miguel Caballero [facility] 05/30/24 Cement Patcher Relationship Specialty Start Date End Date Janice Lane MD [address] [facility] [place] [address] PCP - General Family Medicine 12/09/19 Juan Miguel Caballero [facility] 05/30/24 Cement Patcher Relationship Specialty Start Date End Date Janice Lane MD [address] [facility] [place] [address] PCP - General Family Medicine 12/09/19 Juan Miguel Caballero [facility] 05/30/24 Cement Patcher Relationship Specialty Start Date End Date Janice Lane MD [address] [facility] [place] [address] PCP - General Family Medicine 12/09/19 [facility] 05/30/24 Cement Patcher Relationship Specialty Start Date End Date Janice Lane MD [address] [facility] [place] [address] PCP - General Family Medicine 12/09/19 [facility] 05/30/24 Cement Patcher Relationship Specialty Start Date End Date Janice Lane MD [address] [facility] [place] [address] PCP - General Family Medicine 12/09/19 [facility] 05/30/24 Cement Patcher Relationship Specialty Start Date End Date Janice Lane MD [address] [facility] [place] [address] PCP - General Family Medicine 12/09/19 Cement Patcher Relationship Specialty Start Date End Date Janice Lane MD [address] [facility] [place] [address] PCP - General Family Medicine 12/09/19 [facility] 05/30/24 Cement Patcher Relationship Specialty Start Date End Date Janice Lane MD [address] [facility] [place] [address] PCP - General Family Medicine 12/09/19 Cement Patcher Relationship Specialty Start Date End Date Janice Lane MD [address] [place] [address] PCP - General Family Medicine 12/09/19 Cement Patcher Relationship Specialty Start Date End Date Janice Lane MD [address] [place] [address] PCP - General Family Medicine 12/09/19 Cement Patcher Relationship Specialty [place] [address] [place] [address] PCP - General Pediatrics 10/26/23 Cement Patcher Relationship Specialty Start Date End Date Janice Lane MD [address] [place] [address] PCP - General Family Medicine 12/09/19 [facility] 05/30/24 Cement Patcher Relationship Specialty [place] [address] [place] [address] PCP - General 12/13/19 Naatly Tripathi APRN-LIQUEFACTION PLANT OPERATOR [address] [place] [address] Dining Room Manager Obstetrics 06/16/24 Cement Patcher Relationship Specialty [place] [address] [place] [address] PCP - General 12/13/19 Nataly Tripathi APRN-LIQUEFACTION PLANT OPERATOR [address] [place] [address] Dining Room Manager Obstetrics 06/16/24 Cement Patcher Relationship Specialty Start Date End Date Janice Lane MD [address] [facility] [place] [address] PCP - General Family Medicine 12/09/19 [facility] 05/30/24 Cement Patcher Relationship Specialty [place] [address] [place] [address] PCP - General Pediatrics 10/26/23 Cement Patcher Relationship Specialty Start Date End Date Janice Lane MD [address] [place] [address] PCP - General Family Medicine 12/09/19 [facility] 05/30/24 Cement Patcher Relationship Specialty Start Date End Date Janice Lane MD [address] [place] [address] PCP - General Family Medicine 12/09/19 [facility] 05/30/24 Cement Patcher Relationship Specialty [place] [address] [place] [address] PCP - General Pediatrics 10/26/23 Cement Patcher Relationship Specialty [place] [address] [place] [address] PCP - General 12/13/19 Nataly Tripathi, LUMBER PLANER-LIQUEFACTION PLANT OPERATOR [address] [place] [address] Dining Room Manager Obstetrics 06/16/24 Cement Patcher Relationship Specialty [place] [address] [place] [address] PCP - General Pediatrics 10/26/23 Cement Patcher Relationship Specialty [place] [address] [place] [address] PCP - General Pediatrics 10/26/23 Cement Patcher Relationship Specialty [place] [address] [place] [address] PCP - General Pediatrics 10/26/23 Cement Patcher Relationship Specialty [place] [address] [place] [address] PCP - General Pediatrics 10/26/23 Cement Patcher Relationship Specialty [place] [address] [place] [address] PCP - General 12/13/19 Nataly Tripathi APRN-LIQUEFACTION PLANT OPERATOR [address] [place] [address] Dining Room Manager Obstetrics 06/16/24 Cement Patcher Relationship Specialty [place] [address] [place] [address] PCP - General 12/13/19 Nataly Tripathi, LUMBER PLANER-LIQUEFACTION PLANT OPERATOR [address] [place] [address] Dining Room Manager Obstetrics 06/16/24 Cement Patcher Relationship Specialty [place] [address] [place] [address] PCP - General 12/13/19 Nataly Tripathi LUMBER PLANER-LIQUEFACTION PLANT OPERATOR [address] [place] [address] Dining Room Manager Obstetrics 06/16/24 Cement Patcher Relationship Specialty Start Date End Date Janice Lane MD [address] [facility] [place] [address] PCP - General Family Medicine 12/09/19 Juan Miguel [facility] 05/30/24 Cement Patcher Relationship Specialty Start Date End Date Janice Lane MD [address] [facility] [place] [address] PCP - General Family Medicine 12/09/19 Juan Miguel Caballero, [facility] 05/30/24 Cement Patcher Relationship Specialty Start Date End Date Janice Lane MD [address] [facility] [place] [address] PCP - General Family Medicine 12/09/19 Juan Miguel Caballero, [facility] 05/30/24 Olimpia Turpin LUMBER PLANER.LIQUEFACTION PLANT OPERATOR [address] [facility] [place] [address] Mannequin Maker Family Medicine 10/18/24 Maricruz Valdovinos PA-C [address] [place] [address] Mannequin Maker Internal Medicine 10/18/24 Cement Patcher Relationship Specialty Start Date End Date Janice Lane MD [address] [facility] [place] [place] [address] PCP - General Family Medicine 12/09/19 Juan Miguel Caballero, [facility] 05/30/24 Olimpia Turpin APRN.LIQUEFACTION PLANT OPERATOR [address] [place] [address] Mannequin Maker Family Medicine 10/18/24 Mraicruz Valdovinos PA-C [address] [place] [address] Mannequin Maker Internal Medicine 10/18/24 Cement Patcher Relationship Specialty [place] [address] [place] [address] PCP - General 12/13/19 Nataly Tripathi, LUMBER PLANER-LIQUEFACTION PLANT OPERATOR [address] [place] [address] Dining Room Manager Obstetrics 06/16/24 Cement Patcher Relationship Specialty [place] [address] [place] [address] PCP - General Pediatrics 10/26/23 Cement Patcher Relationship Specialty [place] [address] [place] [address] PCP - General Pediatrics 10/26/23 Cement Patcher Relationship Specialty Start Date End Date Janice Lane MD [address] [place] [address] PCP - General Family Medicine 12/09/19 Juan Miguel [facility] 05/30/24 Olimpia Turpin, LUMBER PLANER.LIQUEFACTION PLANT OPERATOR [address] [place] [address] Mannequin Maker Family [facility] 10/18/24 Cement Patcher Relationship Specialty Start Date End Date Janice Lane MD [address] [place] [address] PCP - General Family Medicine 12/09/19 Juan Miguel [facility] 05/30/24 HwOlimpia snow, LUMBER PLANER.LIQUEFACTION PLANT OPERATOR [address] [place] [address] Mannequin Maker [facility] [place] 10/18/24 Cement Patcher Relationship Specialty Start Date End Date Janice Lane MD [address] [place] [address] PCP - General Family Medicine 12/09/19 Juan Miguel Caballero, [facility] 05/30/24 Olimpia Turpin, LUMBER PLANER.LIQUEFACTION PLANT OPERATOR [address] [place] [address] Mannequin Maker Family Medicine 10/18/24 Cement Patcher Relationship Specialty Start Date End Date Janice Lane MD [address] [facility] [place] [address] PCP - General Family Medicine 12/09/19 Juan Miguel Caballero, [facility] 05/30/24 Olimpia Turpin, LUMBER PLANER.LIQUEFACTION PLANT OPERATOR [address] [facility] [place] [address] Mannequin Maker Family [facility] 10/18/24 Cement Patcher Relationship Specialty Start Date End Date Janice Lane MD [address] [facility] [place] [address] PCP - General Family Medicine 12/09/19 Juan Miguel Caballero, [facility] 05/30/24 Olimpia Turpin, LUMBER PLANER.LIQUEFACTION PLANT OPERATOR [address] [facility] [place] [address] Mannequin Maker [facility] [place] 10/18/24 Cement Patcher Relationship Specialty Start Date End Date Janice Lane MD [address] [facility] [place] [address] PCP - General Family Medicine 12/09/19 Juan Miguel [facility] 05/30/24 Olimpia Turpin, LUMBER PLANER.LIQUEFACTION PLANT OPERATOR [address] [facility] [place] [address] Mannequin Maker [facility] [place] 10/18/24 Team Status: Inactive Member Role Status Dates Janice Lane MD Primary Care Provider Active Start: February 03, 2025 End: February 03, 2025 Tor Hernandez NP-C Attending Provider Active Start: February 03, 2025 End: March 27th, 2025 Cement Patcher Relationship Specialty Start Date End Date Rima, Janice M, MD [address] [facility] [place] [address] PCP - General Family Medicine 12/09/19 Juan Miguel [facility] 05/30/24 HwOlimpia snow, LUMBER PLANER.LIQUEFACTION PLANT OPERATOR [address] [facility] [place] [address] Mannequin Maker [facility] [place] 10/18/24 Cement Patcher Relationship Specialty Start Date End Date Janice Lane MD [address] [facility] [place] [address] PCP - General Family Medicine 12/09/19 Juan Miguel Caballero[facility] 05/30/24 HwOlimpia snow, LUMBER PLANER.LIQUEFACTION PLANT OPERATOR [address] [facility] [place] [address] Mannequin Maker [facility] [place] 10/18/24 Cement Patcher Relationship Specialty Start Date End Date Janice Lane MD [address] [facility] [place] [address] PCP - General Family Medicine 12/09/19 Juan Miguel Caballero[facility] 05/30/24 HwOlimpia snow, LUMBER PLANER.LIQUEFACTION PLANT OPERATOR [address] [facility] [place] [address] [facility] 10/[facility]/24 Team Status: Inactive Member Role Status Dates Janice Lane MD Primary Care Provider Active Start: February 12, 2025 End: February 12, 2025 [place] QuijanoC Attending Provider Active Start: February 12, 2025 End: February 12, 2025 Cement Patcher Relationship Specialty Start Date End Date Janice aLne MD [address] [facility] [place] [address] PCP - General Family Medicine 12/09/19 Juan Miguel Caballero, [facility] 05/30/24 HwOlimpia snow, LUMBER PLANER.LIQUEFACTION PLANT OPERATOR [address] [facility] [place] [address] Mannequin Maker Family [facility] 10/18/24 Cement Patcher Relationship Specialty Start Date End Date Janice Lane MD [address] [facility] [place] [address] PCP - General Family Medicine 12/09/19 Juan Miguel Caballero[facility] 05/30/24 HwOlimpia snow, LUMBER PLANER.LIQUEFACTION PLANT OPERATOR [address] [facility] [place] [address] Mannequin Maker [facility] [place] 10/18/24 Cement Patcher Relationship Specialty Start Date End Date Janice Lane MD [address] [facility] [place] [address] PCP - General Family Medicine 12/09/19 Juan Miguel Caballero[facility] 05/30/24 Olimpia Turpin, LUMBER PLANER.LIQUEFACTION PLANT OPERATOR [address] [facility] [place] [address] Mannequin Maker [facility] [place] 10/18/24 Cement Patcher Relationship Specialty Start Date End Date Janice Lane MD [address] [facility] [place] [address] PCP - General Family Medicine 12/09/19 Juan Miguel Caballero, [facility] 05/30/24 Olimpia Turpin, LUMBER PLANER.LIQUEFACTION PLANT OPERATOR [address] [place] [address] Mannequin Maker [facility] [place] 10/18/24 Cement Patcher Relationship Specialty Start Date End Date Janice Lane MD [address] [place] [address] PCP - General Family Medicine 12/09/19 Juan Miguel Caballero, [facility] 05/30/24 Olimpia Turpin, LUMBER PLANER.LIQUEFACTION PLANT OPERATOR [address] [place] [address] Mannequin Maker [facility] [place] 10/18/24 Cement Patcher Relationship Specialty [place] [address] [place] [address] PCP - General Pediatrics 10/26/23 Cement Patcher Relationship Specialty [place] [address] [place] [address] PCP - General Pediatrics 10/26/23 Cement Patcher Relationship Specialty Start Date End Date Janice Lane MD [address] [place] [address] PCP - General Family Medicine 12/09/19 Juan Miguel Caballero, [facility] 05/30/24 Olimpia Turpin, LUMBER PLANER.LIQUEFACTION PLANT OPERATOR [address] [place] [address] Mannequin Maker Family [facility] 10/18/24 Cement Patcher Relationship Specialty Start Date End Date Janice Lane MD [address] [facility] [place] [address] PCP - General Family Medicine 12/09/19 Juan Miguel [facility]allero[facility] 05/30/24 Olimpia uTrpin, LUMBER PLANER.LIQUEFACTION PLANT OPERATOR [address] [facility] [place] [address] Mannequin Maker [facility] [place] 10/18/24 Cement Patcher Relationship Specialty Start Date End Date Janice Lane MD [address] [place] [address] PCP - General Family Medicine 12/09/19 Juan Miguel Caballero[facility] 05/30/24 Olimpia Turpin, LUMBER PLANER.LIQUEFACTION PLANT OPERATOR [address] [facility] [place] [address] Mannequin Maker [facility] [place] 10/18/24 Cement Patcher Relationship Specialty [place] [address] [place] [address] PCP - General Pediatrics 10/26/23 Cement Patcher Relationship Specialty [place] [address] [place] [address] PCP - General Pediatrics 10/26/23 Cement Patcher Relationship Specialty Start Date End Date Janice Lane MD [address] [facility] [place] [address] PCP - General Family Medicine 12/09/19 Juan Miguel [facility]ero[facility] 05/30/24 Olimpia Turpin, LUMBER PLANER.LIQUEFACTION PLANT OPERATOR [address] [facility] [place] [address] Mannequin Maker Family Medicine 10/18/24 Cement Patcher Relationship Specialty Start Date End Date Janice Lane MD [address] [facility] [place] [address] PCP - General Family Medicine 12/09/19 Juan Miguel [facility] 05/30/24 04/12/25 Olimpia Turpin, LUMBER PLANER.LIQUEFACTION PLANT OPERATOR [address] [facility] [place] [address] Mannequin Maker [facility] [place] 10/18/24 Cement Patcher Relationship Specialty Start Date End Date Janice Lane MD [address] [facility] [place] [address] PCP - General Family Medicine 12/09/19 Cement Patcher Relationship Specialty Start Date End Date Janice Lane MD [address] [facility] [place] [address] PCP - General Family Medicine 12/09/19 [place] Hein, LUMBER PLANER.LIQUEFACTION PLANT OPERATOR [address] [place] [address] Mannequin Maker Family Medicine 06/08/25 Cement Patcher Relationship Specialty Start Date End Date Janice Lane MD [address] [facility] [place] [address] PCP - General Family Medicine 12/09/19 [place] Hein, LUMBER PLANER.LIQUEFACTION PLANT OPERATOR [address] [place] [address] Mannequin Maker Family Medicine 06/08/25 Cement Patcher Relationship Specialty Start Date End Date Janice Lane MD [address] [facility] [place] [address] PCP - General Family Medicine 12/09/19 Indiana Hein, LUMBER PLANER.LIQUEFACTION PLANT OPERATOR [address] [place] [address] Mannequin Maker Family Medicine 06/08/25 Cement Patcher Relationship Specialty Start Date End Date Janice Lane MD [address] [place] [address] PCP - General Family Medicine 12/09/19 Indiana Hein, LUMBER PLANER.LIQUEFACTION PLANT OPERATOR [address] [place] [address] Mannequin Maker Family Medicine 06/08/25 Cement Patcher Relationship Specialty [place] [address] [place] [address] PCP - General Pediatrics 10/26/23 Team Status: Inactive Member Role Status Dates Janice Lane MD Primary Care Provider Active Start: August 24, 2025 End: August 24, 2025 Nikolay Friend PA-C Emergency Provider Active Start: August 24, 2025 End: August 24, 2025 Cement Patcher Relationship Specialty [place] [address] [place] [address] PCP - General Pediatrics 10/26/23 Cement Patcher Relationship Specialty [place] [address] [place] [address] PCP - General Pediatrics 10/26/23 Cement Patcher Relationship Specialty [place] [address] [place] [address] PCP - General Pediatrics 10/26/23 Goals (unrecognized [...] THE PRIMARY CLINICAL RECORDS. [facility]. provides no warranty or guarantee of the accuracy or completeness of information in this document.
--- OUTSIDE RECORDS SUMMARY | 2025-08-26 19:55 | XMS_ITS | Encounter Summary ---
Author Organization [facility] Address [address] [place], [place] [address] Care Team Providers Care Equipment Worker Name Role Phone Rashard Lane MD Primary Care Provider [phone] Juan Miguel Caballero [facility] Unavailable Unavailable Olimpia Turpin BOILERMAKER CENTRAL STEAM PLANT.DIRECTOR OF CLOUD SERVICES Unavailable [phone] Maricruz Valdovinos PA-C Unavailable [phone] nIdiana Hein BOILERMAKER CENTRAL STEAM PLANT.DIRECTOR OF CLOUD SERVICES Unavailable Source Comments In the event this information is protected by the Federal Confidentiality of Alcohol and Drug AbusePatient Records regulations: The Federal rules restrict any use of the information to criminally investigate or prosecute any alcohol or drug abuse patient.[facility] Encounter Details Date Type Department Care Team ([facility] st Contact Info) Description 10/02/2024 Patient Msg [facility] [address] [place] [address] Estrella Vargas, PT, DPT [address] [address] Appointment Request Social History Tobacco Use [...] How often do you attend chur or adventism services? Never 12/16/2022 Do you belong to [...] Answer Date Recorded PHQ-2 score 0 07/19/2024 [facility] [...] in a fci (including now)? No 12/16/2022 [place] Depression Scale Answer Date Recorded [place] Depression Scale Total 1 10/30/2020 The thought of harming myself has occurred to me . Never 10/30/2020 Area Deprivation Index Answer Date Ger rded National Score (1-100), lower number is lower ri sk 93 07/17/2023 State Score (1-10), lower number is lower risk 9 07/17/2023 Data from: https://www.neighborhoodatlas.medicine.[facility].edu/. Last address used for calculation [address] [...] st Contact Info) Description 09/30/2025 9:00 AM [facility] Hematology/Oncology [address] [place] [address] [place] [address] OCREVUS documented as of this encounter Visit Diagnoses Not on filedocumented in this encounter Care Teams Equipment Worker Relationship Specialty Start Date End Date Rashard Lane MD [address] [place] [address] PCP - General Family Medicine 12/09/19 Juan Miguel Caballero [facility] 05/30/24 04/12/25 Olimpia Turpin APRN.DIRECTOR OF CLOUD SERVICES [address] [place] [address] [facility] Family [facility] 10/18/24 05/22/25 Maricruz Valdovinos PA-C [facility] [place] [address] [facility] Internal Medicine 10/18/24 11/11/24 [place] Hein APRN.DIRECTOR OF CLOUD SERVICES [address] [place], [place] [address] [facility] Family Medicine 06/08/25 documented as of this encounter
--- OUTSIDE RECORDS SUMMARY | 2025-08-26 19:55 | XMS_ITS | Encounter Summary ---
Author Organization [facility] Address [address] [place] [address] Care Team Providers Care Central Office Repairer Supervisor Name Role Phone Rashard Lane MD Primary Care Provider [phone] Encounter Details Date Type Department Care Team (Late st Contact Info) Description 08/17/2024 Clinisync Result Encounter [facility] External Department Unsolicited Clarke Hu DO [address] [place] [address] Social History Tobacco Use Types Packs/Day Years [...] EDT Office Visit [facility] [address] [place] [id number] Jahaira Byers PA [address] [place] [address] [place] [address] documented as of this encounter Procedures Procedure [...] care of your patient Follow-up ======== Per [facility] visit to follow, plan for serial third [...] EFW (oz) 4 oz EFW by: Hadlock ([id number]) [employer] Principal 3.4 mm Head / Face / Neck [...] care of your patient Follow-up ======== Per [facility] visit to follow, plan for serial third [...] EFW (oz) 4 oz EFW by: Hadlock ([id number]) [employer] Principal 3.4 mm Head / Face / Neck [...] 74.6 40% 276.2 24%259.2 51% 56.3 28% 515086% Impression ========= -Appropriate growth and AFV -No malformations were identified on a limited survey -BPP Score is 06/17 Thank you allowing us to participate in the care of your patient Follow-up ======== Per [facility] visit to follow, plan for serial third [...] EFW (oz) 4 oz EFW by: Hadlock ([id number]) [employer] Principal 3.4 mm Head / Face / Neck [...] 74.6 40% 276.2 24%259.2 51% 56.3 28% 979510% Impression ========= -Appropriate growth and AFV -No malformations were identified on a limited survey -BPP Score is 06/17 Thank you allowing us to participate in the care of your patient Follow-up ======== Per [facility] visit to follow, plan for serial third [...] EFW (oz) 4 oz EFW by: Hadlock ([id number]) [employer] Principal 3.4 mm Head / Face / Neck [...] on filedocumented in this encounter Care Teams Central Office Repairer Supervisor Relationship Specialty [place] [address] [place] [address] PCP - General Pediatrics 10/26/23 documented as of this encounter
--- OUTSIDE RECORDS SUMMARY | 2025-08-26 19:55 | XMS_ITS | Encounter Summary ---
Author Organization [facility] Address [address] [place] [address] Care Team Providers Care Optical Mechanic Apprentice Name Role Phone Rashard Lane MD Primary Care Provider [phone] Juan Miguel Caballero [facility] Unavailable Unavailable Olimpia Turpin PRIVACY OFFICER.FLIGHT ATTENDANT INFLIGHT SERVICES Unavailable Maricruz Valdovinos PA-C Unavailable [phone] [place] Hein PRIVACY OFFICER.FLIGHT ATTENDANT INFLIGHT SERVICES Unavailable Source Comments In the event this information is protected by the Federal Confidentiality of Alcohol and Drug AbusePatient Records regulations: The Federal rules restrict any use of the information to criminally investigate or prosecute any alcohol or drug abuse patient.[facility] Encounter Details Date Type Department Care Team (Late st Contact Info) Description 01/29/2023 Patient [facility] [address] [place], [place] [id number] Nesha Williamson MD [address] [place] [address] Labs Social History Tobacco Use Types [...] often do you attend chur ch or adventism services? Never 12/16/2022 Do you belong to any clubs o r organizations such as judaism groups, unions, fraternal or athletic groups, or [...] Answer Date Recorded PHQ-2 score 0 01/13/2023 [facility] [...] in a usp (including now)? No 12/16/2022 [place] Depression Scale Answer Date Recorded [place] Depression Scale Total 1 10/30/2020 The thought of harming myself has occurred to me . Never 10/30/2020 Area Deprivation Index Answer Date Ger rded National Score (1-100), lower number is lower ri sk 89 11/27/2022 State Score (1-10), lower number is lower risk N ot on file 11/27/2022 Data from: https://www.neighborhoodatlas.medicine.[facility] [...] st Contact Info) Description 09/30/2025 9:00 AM [facility] Hematology/Oncology [address] [place] [address] [place] [address] OCREVUS documented as of this encounter Visit Diagnoses Not on filedocumented in this encounter Additional Health Concerns Infection Onset Date Last Indicated Resolved Time COVID-19 Rule-Out 02/12/2023 02/12/2023 02/13/2023 1:49 AM EDT COVID-19 Confirmed 02/12/2023 02/12/2023 8:51 PM EDT documented as of this encounter Care Teams Optical Mechanic Apprentice Relationship Specialty Start Date End Date Rashard Lane MD [address] [place] [address] PCP - General Family Medicine 12/09/19 Juan Miguel Caballero, [facility] 05/30/24 04/12/25 Olimpia Turpin, PRIVACY OFFICER.FLIGHT ATTENDANT INFLIGHT SERVICES [address] [place] [address] Crew Manager Family Medicine 10/18/24 05/22/25 Maricruz Valdovinos PA-C [address] [place] [address] Crew Manager Internal Medicine 10/18/24 11/11/24 [place] Hein, PRIVACY OFFICER.FLIGHT ATTENDANT INFLIGHT SERVICES [address] [place] [address] Crew Manager Family Medicine 06/08/25 documented as of this encounter
--- OUTSIDE RECORDS SUMMARY | 2025-08-26 19:55 | XMS_ITS | Encounter Summary ---
Author Organization [employer] Address [id number] [address] [place] [address] Care Team Providers Care Glass Etcher Helper Name Role Phone Rashard Lane Primary Care Provider [phone] Encounter Details Date Type Department Care Team (Late st Contact Info) Description 10/30/2020 [facility] [address] [place] [id number] Milady Harman RMA Social History Tobacco Use [...] is to have improved memory, ability to meat pickler and hold items with bilateral hands, to have improved vision, and have no difficulty swallowing prior to discharging home. documented as of this encounter Visit Diagnoses Not on filedocumented in this encounter Care Teams Glass Etcher Helper Relationship Specialty Start Date End Date Rashard [address] [address] [place] [address] PCP - General Family Medicine 12/22/19 documented as of this encounter
--- OUTSIDE RECORDS SUMMARY | 2025-08-26 19:55 | XMS_ITS | Encounter Summary ---
Author Organization [facility] tem Address [facility]-[id number] [address] [place] [address] Care Team Providers Care Tunnel Heading Supervisor Name Role Phone Rashard Lane Primary Care Provider [phone] Encounter Details Date Type Department Care Team (Late st Contact Info) Description 07/19/2020 Telephone [facility] Division of [facility] - Radiation Oncology [address] [place] [phone] [address] [address] [place] [address] Social History Tobacco Use Types [...] 2:30. R: Please call her back at [phone]. documented in this encounter Plan of Treatment Not on file documented as of this encounter Goals Goal Patient Goal Type Associated Problems Recent Progress Patient-Stated? Author Discharge home with outpatient therapy services General Yes Cecille Rodrigues, FREYA Note: Evaluation of progress towards goal: Patient stated her goal is to have improved memory, ability to pepper picker and hold items with bilateral hands, to have improved vision, and have no difficulty swallowing prior to discharging home. documented as of this encounter Visit Diagnoses Not on filedocumented in this encounter Care Teams Tunnel Heading Supervisor Relationship Specialty Start Date End Date [address] [address] [place] [address] PCP - General Family Medicine 12/22/19 documented as of this encounter
--- OUTSIDE RECORDS SUMMARY | 2025-08-26 19:55 | XMS_ITS | Encounter Summary ---
Author Organization [facility] Address [address] [place] [address] Care Team Providers Care Interceptor Operator Name Role Phone Rashard Lane MD Primary Care Provider [phone] Juan Miguel Caballero [facility] Unavailable Unavailable Olimpia Turpin WASH WORKER.GROUNDS MAINTENANCE MANAGER Unavailable Indiana Hein WASH WORKER.GROUNDS MAINTENANCE MANAGER Unavailable [phone] Source Comments In the event this information is protected by the Federal Confidentiality of Alcohol and Drug AbusePatient Records regulations: The Federal rules restrict any use of the information to criminally investigate or prosecute any alcohol or drug abuse patient.[facility] Encounter Details Date Type Department Care Team (Late st Contact Info) Description 03/12/2025 Patient Msg Internal Medicine [place] [address] [place], [place] [id number] Provider, Ccf Billing Phone Number Social History [...] you attend chur ch or yarsani services? More than 4 times per year [...] Answer Date Recorded PHQ-2 score 2 03/10/2025 [facility] - Occupational Stress Questionnaire Answer Date [...] in a intermediate (including now)? No 12/16/2022 [place] Depression Scale Answer Date Recorded [place] Depression Scale Total 1 10/30/2020 The thought [...] Contact Info) Description 09/30/2025 9:00 AM EST [facility] Hematology/Oncology [address] [place] [address] [place] [address] OCREVUS documented as of this encounter Visit Diagnoses Not on filedocumented in this encounter Care Teams Interceptor Operator Relationship Specialty Start Date End Date Rashard Lane MD [address] [place], [place] [address] PCP - General Family Medicine 12/09/19 Juan Miguel Caballero [facility] 05/30/24 04/12/25 Olimpia Turpin, WASH WORKER.GROUNDS MAINTENANCE MANAGER [address] [place] [address] Gun Perforator Family Medicine 10/18/24 05/22/25 Indiana Hein, [facility] [address] [place] [address] Gun Perforator Family Medicine 06/08/25 documented as of this encounter
--- OUTSIDE RECORDS SUMMARY | 2025-08-26 19:55 | XMS_ITS | Encounter Summary ---
Author Organization [facility] Address [address] [place] [address] Care Team Providers Care Litigation Attorney Name Role Phone Rashard Lane MD Primary Care Provider [phone] Encounter Details Date Type Department Care Team (Late st Contact Info) Description 08/17/2024 Clinisync Result Encounter [facility] External Department Unsolicited Clarke Hu DO [address] [facility] [place] [address] Social History Tobacco Use Types Packs/Day Years [...] [facility] [place] [phone] Jahaira Byers PA [address] [place] [address] [place] [address] documented as of this encounter Procedures Procedure [...] care of your patient Follow-up ======== Per [facility] visit to follow, plan for serial [...] EFW (oz) 4 oz EFW by: Hadlock (DKU-OK-RH-FL) Extended Skip Loader 3.4 mm Head / Face / Neck [...] care of your patient Follow-up ======== Per [facility] visit to follow, plan for serial [...] EFW (oz) 4 oz EFW by: Hadlock (FAD-QO-AQ-FL) Extended Skip Loader 3.4 mm Head / Face / Neck [...] 74.6 40% 276.2 24%259.2 51% 56.3 28% 306129% Impression ========= -Appropriate growth and AFV -No malformations were identified on a limited survey -BPP Score is 06/17 Thank you allowing us to participate in the care of your patient Follow-up ======== Per [facility] visit to follow, plan for serial [...] EFW (oz) 4 oz EFW by: Hadlock (WJM-HS-VP-FL) Extended Skip Loader 3.4 mm Head / Face / Neck [...] 74.6 40% 276.2 24%259.2 51% 56.3 28% 969647% Impression ========= -Appropriate growth and AFV -No malformations were identified on a limited survey -BPP Score is 06/17 Thank you allowing us to participate in the care of your patient Follow-up ======== Per [facility] visit to follow, plan for serial [...] EFW (oz) 4 oz EFW by: Hadlock (ZUH-LA-EL-FL) Extended Skip Loader 3.4 mm Head / Face / Neck [...] on filedocumented in this encounter Care Teams Litigation Attorney Relationship Specialty [place] [address] [place] [address] PCP - General Pediatrics 10/26/23 documented as of this encounter
--- OUTSIDE RECORDS SUMMARY | 2025-08-26 19:55 | XMS_ITS | Encounter Summary ---
Author Organization [facility] Address [address] [place] [address] Care Team Providers Care Group Tester Name Role Phone Rashard Lane MD Primary Care Provider [phone] Juan Miguel Caballero [facility] Unavailable Unavailable Olimpia Turpin ANESTHESIOLOGIST PHYSICIAN.PROFESSOR OF LITERACY Unavailable Maricruz Valdovinos PA-C Unavailable [phone] Indiana Hein ANESTHESIOLOGIST PHYSICIAN.PROFESSOR OF LITERACY Unavailable Source Comments In the event this information is protected by the Federal Confidentiality of Alcohol and Drug AbusePatient Records regulations: The Federal rules restrict any use of the information to criminally investigate or prosecute any alcohol or drug abuse patient.[facility] Encounter Details Date Type Department Care Team (Late st Contact Info) Description 11/08/2024 Patient [facility] [address] [place] [address] Anya Cast APRN.PROFESSOR OF LITERACY [address] [place] [address] Appointment Cancellation Request Social History [...] How often do you attend chur or congregational services? Never 12/16/2022 Do you belong to [...] Answer Date Recorded PHQ-2 score 0 11/08/2024 [facility] [place] of Occupat ional Health - Occupational [...] in a fci (including now)? No 12/16/2022 [place] Depression Scale Answer Date Recorded [place] Depression Scale Total 1 10/30/2020 The thought of harming myself has occurred to me . Never 10/30/2020 Area Deprivation Index Answer Date Ger rded National Score (1-100), lower number is lower ri sk 93 07/17/2023 State Score (1-10), lower number is lower risk 9 07/17/2023 Data from: https://www.neighborhoodatlas.medicine.[facility].edu/. Last address used for calculation [...] AM [facility] Hematology/Oncology [address] [place] [address] [place] [address] OCREVUS documented as of this encounter Visit Diagnoses Not on filedocumented in this encounter Care Teams Group Tester Relationship Specialty Start Date End Date Rashard Lane MD [address] [place] [address] PCP - General Family Medicine 12/09/19 Juan Miguel Caballero [facility] 05/30/24 04/12/25 Olimpia Turpin APRN.PROFESSOR OF LITERACY [address] [place] [address] Sausage Linker Family Medicine 10/18/24 05/22/25 Maricruz Valdovinos PA-C [facility] [place], [place] [id number] Sausage Linker Internal Medicine 10/18/24 11/11/24 Indiana Hein APRN.[facility] [address] [place] [address] [facility] Family Medicine 06/08/25 documented as of this encounter
--- OUTSIDE RECORDS SUMMARY | 2025-08-26 19:55 | XMS_ITS | Encounter Summary ---
Author Organization [facility] Address [address] [place] [address] Care Team Providers Care Tankroom Worker Name Role Phone Janice Lane MD Primary Care Provider [phone] Encounter Details Date Type Department Care Team (Late st Contact Info) Description 04/01/2024 Clinisync Result Encounter [facility] External Department Unsolicited John Hu DO [address] [place] [address] Social History Tobacco Use Types Packs/Day Years [...] EDT Office Visit [facility] Sherry JEWELL [address] [facility] [place] [address] Jahaira Byers PA [address] [place] [address] (Vawr) documented as of this encounter Procedures Procedure Name Priority Date/Time Associated Diagnosis Comments US OB TRANSVAGINAL 04/01/2024 1: 53 PM EDT documented in this encounter Results * US OB TRANSVAGINAL (04/01/2024 1:53 PM EDT) Anatomical Region Laterality Modality Other 04/01/2024 1:53 PM EDT Narrative 04/01/2024 1:55 PM EDT [address] [address] Ultrasound Report Signed Patient: CAROL ANN ROMAN MR#: [id number] : 1985 Acct:[id number] Age/Sex: 38 / F ADM Date: 04/01/24 Loc: [facility] Attending Dr: John Hu D.O. Ordering Physician: John Hu D.O. Date of Service: 04/01/24 Procedure(s): US OB transvaginal Accession Number(s): [id number] cc: John Hu D.O.; Physician,Non-Staff M.Jong [address] [address] Patient Name: CAROL ANN ROMAN MRN: [id number] date: 1985 Sex: F Assigned Patient Location: [facility] Current Patient Location: [facility] Accession/Order Number: [id number] Exam Date: 04/01/2024 13:05 Report Date: 04/01/2024 [...] Signed By: 04/01/24 1355 DD/ 1353 TD/TT: Channel Lip Stiffener Insoles: Procedure Note Radiology, Radiologist, MD - 04/01/2024 [place] [address] Ultrasound Report Signed Patient: CAROL ANN ROMAN FMR#: [id number] : 1985Acct:[id number] Age/Sex: 38 / FADM Date: 04/01/24 Loc: [facility] Attending Dr: John Hu D.O. Ordering Physician: John Hu D.O. Date of Service: 04/01/24 Procedure(s): US OB transvaginal Accession Number(s): [id number] cc: John Hu D.O.; Physician,Non-Staff [place] [address] [place] [address] Patient Name: CAROL ANN ROMAN MRN: [facility]:[id number] date: 1985 Sex: F Assigned Patient Location: [facility] Current Patient Location: [facility] Accession/Order Number: [id number] Exam Date: 04/01/2024 13:05 Report Date: 04/01/2024 [...] M.D. Signed By:04/01/24 1355 DD/ 1353 TD/TT: Channel Lip Stiffener Insoles: us John Mayte DO [facility] Final Result documented in this encounter Visit Diagnoses Not on filedocumented in this encounter Care Teams Tankroom Worker Relationship Specialty [place] [address] [place] [address] PCP - General Pediatrics 10/26/23 documented as of this encounter
--- OUTSIDE RECORDS SUMMARY | 2025-08-26 19:55 | XMS_ITS | Encounter Summary ---
Author Organization [facility] Address [address] [place] [address] Care Team Providers Care Peer Financial Counselor Name Role Phone Rashard Lane MD Primary Care Provider [phone] Juan Miguel Caballero [facility] Unavailable Unavailable Olimpia Turpin WAX SPECIALIST.BI TECHNICAL LEAD Unavailable Maricruz Valdovinos PA-C Unavailable [phone] Indiana Hein WAX SPECIALIST.BI TECHNICAL LEAD Unavailable + [phone] Source Comments In the event this information is protected by the Federal Confidentiality of Alcohol and Drug AbusePatient Records regulations: The Federal rules restrict any use of the information to criminally investigate or prosecute any alcohol or drug abuse patient.[facility] Encounter Details Date Type Department Care Team (Late st Contact Info) Description 02/13/2023 Get Medical Advice Family Medicine [facility] [address] [place], [place] [phone] Rashard [address] MD [address] [place], [place] [phone] How long to quarantine Social History Tobacco [...] often do you attend chur ch or christian services? Never 12/16/2022 Do you belong to [...] Answer Date Recorded PHQ-2 score 0 02/11/2023 [facility] [place] of Occupat ional Health - Occupational Stress [...] a skilled nursing (including now)? No 12/16/2022 [place] Depression Scale Answer Date Recorded [place] Depression Scale Total 1 10/30/2020 The thought of harming myself has occurred to me . Never 10/30/2020 Area Deprivation Index Answer Date Ger rded National Score (1-100), lower number is lower ri sk 89 11/27/2022 State Score (1-10), lower number is lower risk N ot on file 11/27/2022 Data from: https://www.neighborhoodatlas.medicine.[facility].edu/. Last address used for calculation [...] Contact Info) Description 09/30/2025 9:00 AM EST [facility] Center Hematology/Oncology [address] [place] [address] [place] [address] OCREVUS documented as of this encounter Visit Diagnoses Not on filedocumented in this encounter Additional Health Concerns Infection Onset Date Last Indicated Resolved Time COVID-19 Rule-Out 02/12/2023 02/12/2023 02/13/2023 1:49 AM EDT COVID-19 Confirmed 02/12/2023 02/12/2023 8:51 PM EDT documented as of this encounter Care Teams Peer Financial Counselor Relationship Specialty Start Date End Date Rashard [address] MD [address] [place] [address] PCP - General Family Medicine 12/09/19 Juan Miguel Caballero, [facility] 05/30/24 04/12/25 Olimpia Turpin, WAX SPECIALIST.BI TECHNICAL LEAD [address] [place] [address] Health Actuary Family Medicine 10/18/24 05/22/25 Maricruz Valdovinos PA-C [address] [place] [address] Health Actuary Internal Medicine 10/18/24 11/11/24 Indiana Hein, WAX SPECIALIST.BI TECHNICAL LEAD [address] [place] [address] Health Actuary Family Medicine 06/08/25 documented as of this encounter
--- OUTSIDE RECORDS SUMMARY | 2025-08-26 19:55 | XMS_ITS | Encounter Summary ---
Author Organization [facility] Address [address] [place] [address] Care Team Providers Care Flake Miller Helper Name Role Phone Rashard Lane MD Primary Care Provider [phone] Encounter Details Date Type Department Care Team (Late st Contact Info) Description 06/14/2024 Clinisync Result Encounter [facility] External Department Unsolicited Clarke Hu DO [address] [place] [address] Social History Tobacco Use Types Packs/Day Years [...] EDT Office Visit [facility]ry [facility]WELL [address] [facility] [place] [phone] Jahaira Byers PA [address] [place] [address] documented as of this encounter Procedures Procedure [...] EFW (oz) 14 oz EFW by: Hadlock (CUE-ES-PO-FL) Extended Adhesive Bonding Machine Operator 5.9 mm CM 3.2 mm 4% Nicolaides [...] Normal LVOT view: Normal 3-vessel view: Normal 7-fksekh-dqpundz view: Normal Heart / Thorax Situs: situs [...] EFW (oz) 14 oz EFW by: Hadlock (QSB-PJ-UW-FL) Extended Adhesive Bonding Machine Operator 5.9 mm CM 3.2 mm 4% Nicolaides [...] Normal LVOT view: Normal 3-vessel view: Normal 6-zpknxy-dlnwkfx view: Normal Heart / Thorax Situs: situs [...] EFW (oz) 14 oz EFW by: Hadlock (FLB-MI-YR-FL) Extended Adhesive Bonding Machine Operator 5.9 mm CM 3.2 mm 4% Nicolaides [...] Normal LVOT view: Normal 3-vessel view: Normal 5-cyeeat-gbnszhy view: Normal Heart / Thorax Situs: situs [...] EFW (oz) 14 oz EFW by: Hadlock (BDP-UV-SI-FL) Extended Adhesive Bonding Machine Operator 5.9 mm CM 3.2 mm 4% Nicolaides [...] Normal LVOT view: Normal 3-vessel view: Normal 3-btdswb-tmxodtx view: Normal Heart / Thorax Situs: situs [...] on filedocumented in this encounter Care Teams Flake Miller Helper Relationship Specialty [place] [address] [place] [address] PCP - General Pediatrics 10/26/23 documented as of this encounter
--- OUTSIDE RECORDS SUMMARY | 2025-08-26 19:55 | XMS_ITS | Encounter Summary ---
Author Organization [facility] Address [address] [place] [address] Care Team Providers Care Stage Rigger Name Role Phone Rashard Lane MD Primary Care Provider [phone] Juan Miguel Caballero [facility] Unavailable Unavailable Olimpia Turpin FINGERPRINT CLASSIFIER.SADDLE STITCH OPERATOR Unavailable Maricruz Valdovinos PA-C Unavailable [phone] Indiana Hein FINGERPRINT CLASSIFIER.SADDLE STITCH OPERATOR Unavailable + [phone] Source Comments In the event this information is protected by the Federal Confidentiality of Alcohol and Drug AbusePatient Records regulations: The Federal rules restrict any use of the information to criminally investigate or prosecute any alcohol or drug abuse patient.[facility] Encounter Details Date Type Department Care Team (Late st Contact Info) Description 09/02/2024 Get Medical Advice Family Medicine [facility] [address] [place], [place] [phone] Rashard [address] MD [address] [place], [place] [phone] Need 2 letters Social History Tobacco Use [...] often do you attend chur ch or mormon services? Never 12/16/2022 Do you belong to [...] Answer Date Recorded PHQ-2 score 0 07/19/2024 [facility] of Occupat ional Health - Occupational Stress [...] place to sleep or slept in a longterm (including now)? No 12/16/2022 [place] Depression Scale Answer Date Recorded [place] Depression Scale Total 1 10/30/2020 The thought of harming myself has occurred to me . Never 10/30/2020 Area Deprivation Index Answer Date Ger rded National Score (1-100), lower number is lower ri sk 93 07/17/2023 State Score (1-10), lower number is lower risk 9 07/17/2023 Data from: https://www.neighborhoodatlas.medicine.[facility].edu/. Last address used for calculation [address] [...] oGmez Castellano RN * Do you have serious [...] Contact Info) Description 09/30/2025 9:00 AM EST [facility] Hematology/Oncology [address] [place] [address] [place] [address] OCREVUS documented as of this encounter Visit Diagnoses Not on filedocumented in this encounter Care Teams Stage Rigger Relationship Specialty Start Date End Date Rashard Lane MD [address] [facility] [place] [address] PCP - General Family Medicine 12/09/19 Juan Miguel Caballero [facility] 05/30/24 04/12/25 Olimpia Turpin APRN.SADDLE STITCH OPERATOR [address] [place] [address] Reel Operator Family Medicine 10/18/24 05/22/25 Maricruz Valdovinos PA-C [address] [place] [address] Reel Operator Internal Medicine 10/18/24 11/11/24 Indiana Hein, FINGERPRINT CLASSIFIER.[facility] [address] [place] [address] Reel Operator Family Medicine 06/08/25 documented as of this encounter
--- OUTSIDE RECORDS SUMMARY | 2025-08-26 19:55 | XMS_ITS | Encounter Summary ---
Author Organization [facility] Address [address] [place] [address] Care Team Providers Care Planning Consultant Name Role Phone Rashard Lane MD Primary Care Provider [phone] Encounter Details Date Type Department Care Team (Late st Contact Info) Description 08/26/2025 Telephone [facility] Sherry OBGYLuís [address] [facility] [place] [address] Jahaira Byers PA [address] [place], [place] [phone] Social History Tobacco Use Types Packs/Day Years [...] Encounter - Camilla Rm LPN - 08/26/2025 9:26 AM EDT Patient was called made aware in detailed voicemail of results and that scripts would be sent into the pharmacy for the patient any questions reach out to office. documented in this encounter Plan of Treatment Upcoming Encounters Date Type Department Care Team (Late st Contact Info) Description 04/17/2026 1:00 PM EDT Office Visit [facility] Sherry JEWELL [address] [facility] [place] [address] Jahaira Byers PA [address] [place] [address] documented as of this encounter Visit Diagnoses Diagnosis Yeast infection BV (bacterial vaginosis) Unspecified vaginitis and vulvovaginitis documented in this encounter Care Teams Planning Consultant Relationship Specialty [place] [address] [place] [address] PCP - General Pediatrics 10/26/23 documented as of this encounter
--- OUTSIDE RECORDS SUMMARY | 2025-08-26 19:55 | XMS_ITS | Encounter Summary ---
Author Organization [facility] Address [address] [place] [address] Care Team Providers Care Operations Supervisor Chemical Cleaning Name Role Phone Rashard Lane MD Primary Care Provider [phone] Encounter Details Date Type Department Care Team (Late Contact Info) Description 08/25/2025 Bamboo flowsheet NOMKvng JEWELL [address] [place] [address] Jahaira Byers PA [address] [address] Social History Tobacco Use Types Packs/Day Years [...] EDT Office Visit [facility] Sherry JEWELL [address] [place] [address] Jahaira Byers PA [address] [place] [address] documented as of this encounter Visit Diagnoses Not on filedocumented in this encounter Care Teams Operations Supervisor Chemical Cleaning Relationship Specialty Start [place] [address] [place] [address] PCP - General Pediatrics 10/26/23 documented as of this encounter
--- OUTSIDE RECORDS SUMMARY | 2025-08-26 19:55 | XMS_ITS | Encounter Summary ---
Author Organization [facility] Address [facility] [place] [address] Care Team Providers Care Project Management Intern Name Role Phone Rashard Lane MD Primary Care Provider Juan Miguel Caballero [facility] Unavailable Unavailable Olimpia Turpin CHEMICAL ECONOMIST.SAFETY ATTENDANT Unavailable [phone] Indiana Hein CHEMICAL ECONOMIST.SAFETY ATTENDANT Unavailable [phone] Source Comments In the event this information is protected by the Federal Confidentiality of Alcohol and Drug AbusePatient Records regulations: The Federal rules restrict any use of the information to criminally investigate or prosecute any alcohol or drug abuse patient.[facility] Reason for Visit * Reason Comments Ocrevus [place] Checklist Encounter Details Date Type Department Care Team (Late st Contact Info) Description 02/03/2025 Brandee [facility] [address] [address] Anya Cast APRN.SAFETY ATTENDANT [address] [place] [address] Ocrevus [place] Checklist Social History Tobacco Use Types Packs/Day [...] How often do you attend chur or pentecostal services? Never 12/16/2022 Do you belong to any clubs o r organizations such as mu-ism groups, unions, fraternal or athletic groups, or [...] Answer Date Recorded PHQ-2 score 2 02/07/2025 [facility] - [...] in a half-way (including now)? No 12/16/2022 [place] Depression Scale Answer Date Recorded [place] Depression Scale Total 1 10/30/2020 The thought [...] 09/30/2025 9:00 AM [facility] Hematology/Oncology [address] [place] [address] [place] [address] OCREVUS documented as of this encounter Visit Diagnoses Not on filedocumented in this encounter Care Teams Project Management Intern Relationship Specialty Start Date End Date Rashard Lane MD [address] [place] [address] PCP - General Family Medicine 12/09/19 Juan Miguel Caballero [facility] 05/30/24 04/12/25 Olimpia Turpin, CHEMICAL ECONOMIST.SAFETY ATTENDANT [address] [place] [address] Nut Steamer Family Medicine 10/18/24 05/22/25 Indiana Hein, CYNTHIA.[facility] [address] [place] [address] Nut Steamer Family Medicine 06/08/25 documented as of this encounter
--- OUTSIDE RECORDS SUMMARY | 2025-08-26 19:55 | XMS_ITS | Encounter Summary ---
Author Organization [facility] Address [address] [place] [address] Care Team Providers Care Promotion Writer Name Role Phone Rashard Lane MD Primary Care Provider [phone] Juan Miguel Caballero [facility] Unavailable Unavailable Olimpia Turpin MANAGER QUANTITATIVE.DATA PROCESSING CONTROL CLERK Unavailable Maricruz Valdovinos PA-C Unavailable [phone] Indiana Hein MANAGER QUANTITATIVE.DATA PROCESSING CONTROL CLERK Unavailable + [phone] Source Comments In the event this information is protected by the Federal Confidentiality of Alcohol and Drug AbusePatient Records regulations: The Federal rules restrict any use of the information to criminally investigate or prosecute any alcohol or drug abuse patient.[facility] Encounter Details Date Type Department Care Team (Late st Contact Info) Description 08/10/2024 Get Medical Advice Family Medicine [facility] [address] [place], [place] [phone] Rashard Lane MD [address] [place], [place] [phone] Can I get something for my eyes [...] often do you attend chur ch or hinduism services? Never 12/16/2022 Do you belong to [...] Answer Date Recorded PHQ-2 score 0 07/19/2024 [facility] - Occupational [...] in a half-way (including now)? No 12/16/2022 [place] Depression Scale Answer Date Recorded [place] Depression Scale Total 1 10/30/2020 The thought [...] Contact Info) Description 09/30/2025 9:00 AM EST [facility] Hematology/Oncology [address] [place] [address] [place] [address] OCREVUS documented as of this encounter Visit Diagnoses Diagnosis Atypical mole- Primary Benign neoplasm of skin, site unspecified documented in this encounter Care Teams Promotion Writer Relationship Specialty Start Date End Date Rashard Lane MD [address] [place] [address] PCP - General Family Medicine 12/09/19 Juan Miguel Caballero [facility] 05/30/24 04/12/25 Olimpia Turpin, MANAGER QUANTITATIVE.DATA PROCESSING CONTROL CLERK [address] [place] [address] Gas Burner Operator Family Medicine 10/18/24 05/22/25 Maricruz Valdovinos PA-C [address] [place] [address] Gas Burner Operator Internal Medicine 10/18/24 11/11/24 Indiana Hein, CYNTHIA.DATA PROCESSING CONTROL CLERK [address] [place] [address] Gas Burner Operator Family Medicine 06/08/25 documented as of this encounter
--- OUTSIDE RECORDS SUMMARY | 2025-08-26 19:55 | XMS_ITS | Encounter Summary ---
Author Organization [facility] Address [address] [place] [address] Care Team Providers Care Honey Blender Name Role Phone Rashard Lane MD Primary Care Provider [phone] Encounter Details Date Type Department Care Team (Late st Contact Info) Description 08/25/2025 External Result Encounter [facility] External Department Unsolicited Jahaira Byers PA [address] [place] [address] Social History Tobacco Use Types Packs/Day Years [...] 1:00 PM EDT Office Visit [facility] Sherry OBALDA [address] [place] [phone] Jahaira Byers PA [address] [place] [address] documented as of this encounter Procedures Procedure Name Priority Date/Time Associated Diagnosis Comments RECURRENT VAGINITIS (HTRX) Routine 08/25/2025 3:00 PM EDT RECURRENT VAGINITIS (HTRX) Routine 08/25/2025 2:57 PM EDT documented in this encounter Results * (ABNORMAL) RECURRENT VAGINITIS (HTRX) (08/25/2025 3:00 PM EDT) [facility] ATOPOBIUM VAGINAE 0 19.961 - 24.689 ppm 08/26/2025 7:20 AM EDT [facility] ATOPOBIUM VAGINAE Not Detected 19.961 - 24.689 ppm 08/26/2025 7:20 AM EDT [facility] BVAB 2,3 (BACTERIAL VAGINOSIS ASSOCIATED BACTERIA 2, 3); MOBILUNCUS SPP 0 19.961 - 24.689 ppm 08/26/2025 7:20 AM EDT [facility] BVAB 2,3 (BACTERIAL VAGINOSIS ASSOCIATED BACTERIA 2, 3); MOBILUNCUS SPP Not Detected 19.961 - 24.689 ppm 08/26/2025 7:20 AM EDT [facility] HUGO ALBICANS, PARAPSILOSIS, TROPICALIS 26.74(A) 23.000 - 30.347 ppm 08/26/2025 7:20 AM EDT [facility] HUGO ALBICANS, PARAPSILOSIS, TROPICALIS Detected(A) 23.000 - 30.347 ppm 08/26/2025 7:20 AM EDT [facility] HUOG GLABRATA 0 23.000 - 31.618 ppm 08/26/2025 7:20 AM EDT [facility] HUGO GLABRATA Not Detected 23.000 - 31.618 ppm 08/26/2025 7:20 AM EDT [facility] HUGO KRUSEI 0 23.000 - 30.873 ppm 08/26/2025 7:20 AM EDT [facility] HUGO KRUSEI Not Detected 23.000 - 30.873 ppm 08/26/2025 7:20 AM EDT [facility] CHLAMYDIA TRACHOMATIS 0 23.000 - 31.586 ppm 08/26/2025 7:20 AM EDT [facility] CHLAMYDIA TRACHOMATIS Not Detected 23.000 - 31.586 ppm 08/26/2025 7:20 AM EDT [facility] GARDNERELLA VAGINALIS 29.071(A) 19.961 - 24.689 ppm 08/26/2025 7:20 AM EDT [facility] GARDNERELLA VAGINALIS Detected(A) 19.961 - 24.689 ppm 08/26/2025 7:20 AM EDT [facility] HERPES SIMPLEX VIRUS 1 0 23.000 - 31.899 ppm 08/26/2025 7:20 AM EDT [facility] HERPES SIMPLEX VIRUS 1 Not Detected 23.000 - 31.899 ppm 08/26/2025 7:20 AM EDT [facility] HERPES SIMPLEX VIRUS 2 0 23.000 - 31.675 ppm 08/26/2025 7:20 AM EDT [facility] HERPES SIMPLEX VIRUS 2 Not Detected 23.000 - 31.675 ppm 08/26/2025 7:20 AM EDT [facility] MEGASPHAERA (TYPES 1, 2) 0 19.961 - 24.689 ppm 08/26/2025 7:20 AM EDT [facility] MEGASPHAERA (TYPES 1, 2) Not Detected 19.961 - 24.689 ppm 08/26/2025 7:20 AM EDT [facility] NEISSERIA GONORRHOEAE 0 23.000 - 32.587 ppm 08/26/2025 7:20 AM EDT [facility] NEISSERIA GONORRHOEAE Not Detected 23.000 - 32.587 ppm 08/26/2025 7:20 AM EDT [facility] TRICHOMONAS VAGINALIS 0 23.000 - 31.995 ppm 08/26/2025 7:20 AM EDT [facility] TRICHOMONAS VAGINALIS Not Detected 23.000 - 31.995 ppm 08/26/2025 7:20 AM EDT [facility] MYCOPLASMA GENITALIUM 0 19.961 - 24.689 ppm 08/26/2025 7:20 AM EDT [facility] MYCOPLASMA GENITALIUM Not Detected 19.961 - 24.689 ppm 08/26/2025 7:20 AM EDT [facility] Tissue 08/25/2025 3:00 PM EDT 08/26/2025 2:19 AM EDT us Jahaira GRIGGS LAB BLOOD ORDERABLES Final Resul t [facility] [place] [address] * RECURRENT VAGINITIS (HTRX) (08/25/2025 2:57 PM EDT) [facility] ATOPOBIUM VAGINAE 0 19.961 - 24.689 ppm 08/26/2025 7:21 AM EDT [facility] ATOPOBIUM VAGINAE Not Detected 19.961 - 24.689 ppm 08/26/2025 7:21 AM EDT [facility] BVAB 2,3 (BACTERIAL VAGINOSIS ASSOCIATED BACTERIA 2, 3); MOBILUNCUS SPP 0 19.961 - 24.689 ppm 08/26/2025 7:21 AM EDT [facility] BVAB 2,3 (BACTERIAL VAGINOSIS ASSOCIATED BACTERIA 2, 3); MOBILUNCUS SPP Not Detected 19.961 - 24.689 ppm 08/26/2025 7:21 AM EDT [facility] HUGO ALBICANS, PARAPSILOSIS, TROPICALIS 0 23.000 - 30.347 ppm 08/26/2025 7:21 AM EDT [facility] HUGO ALBICANS, PARAPSILOSIS, TROPICALIS Not Detected 23.000 - 30.347 ppm 08/26/2025 7:21 AM EDT [facility] HUGO GLABRATA 0 23.000 - 31.618 ppm 08/26/2025 7:21 AM EDT [facility] HUGO GLABRATA Not Detected 23.000 - 31.618 ppm 08/26/2025 7:21 AM EDT [facility] HUGO KRUSEI 0 23.000 - 30.873 ppm 08/26/2025 7:21 AM EDT [facility] HUGO KRUSEI Not Detected 23.000 - 30.873 ppm 08/26/2025 7:21 AM EDT [facility] CHLAMYDIA TRACHOMATIS 0 23.000 - 31.586 ppm 08/26/2025 7:21 AM EDT [facility] CHLAMYDIA TRACHOMATIS Not Detected 23.000 - 31.586 ppm 08/26/2025 7:21 AM EDT [facility] GARDNERELLA VAGINALIS 0 19.961 - 24.689 ppm 08/26/2025 7:21 AM EDT [facility] GARDNERELLA VAGINALIS Not Detected 19.961 - 24.689 ppm 08/26/2025 7:21 AM EDT [facility] MEGASPHAERA (TYPES 1, 2) 0 19.961 - 24.689 ppm 08/26/2025 7:21 AM EDT [facility] MEGASPHAERA (TYPES 1, 2) Not Detected 19.961 - 24.689 ppm 08/26/2025 7:21 AM EDT [facility] NEISSERIA GONORRHOEAE 0 23.000 - 32.587 ppm 08/26/2025 7:21 AM EDT [facility] NEISSERIA GONORRHOEAE Not Detected 23.000 - 32.587 ppm 08/26/2025 7:21 AM EDT [facility] TRICHOMONAS VAGINALIS 0 23.000 - 31.995 ppm 08/26/2025 7:21 AM EDT [facility] TRICHOMONAS VAGINALIS Not Detected 23.000 - 31.995 ppm 08/26/2025 7:21 AM EDT [facility] MYCOPLASMA GENITALIUM 0 19.961 - 24.689 ppm 08/26/2025 7:21 AM EDT [facility] MYCOPLASMA GENITALIUM Not Detected 19.961 - 24.689 ppm 08/26/2025 7:21 AM EDT [facility] Tissue 08/25/2025 2:57 PM EDT 08/26/2025 2:19 AM EDT us Jahaira GRIGGS LAB BLOOD ORDERABLES Final Resul t [facility] [address] [place] [address] documented in this encounter Visit Diagnoses Not on filedocumented in this encounter Care Teams Honey Blender Relationship Specialty [place] [address] [place] [address] PCP - General Pediatrics 10/26/23 documented as of this encounter
--- OUTSIDE RECORDS SUMMARY | 2025-08-26 19:55 | XMS_ITS | Encounter Summary ---
Author Organization [facility] tem Address [id number] [address] [place] [address] Care Team Providers Care Crisis Mental Health Therapist Name Role Phone Rashard Lane Primary Care Provider [phone] Encounter Details Date Type Department Care Team (Late st Contact Info) Description 07/21/2020 Telephone [facility] - Radiation Oncology [address] [facility] [place] [phone] [address] [address] [place] [address] Social History Tobacco Use Types [...] is to have improved memory, ability to scrap picker and hold items with bilateral hands, to have improved vision, and have no difficulty swallowing prior to discharging home. documented as of this encounter Visit Diagnoses Not on filedocumented in this encounter Care Teams Crisis Mental Health Therapist Relationship Specialty Start Date End Date Rashard [address] [address] [place] [address] PCP - General Family Medicine 12/22/19 documented as of this encounter
--- OUTSIDE RECORDS SUMMARY | 2025-08-26 19:55 | XMS_ITS | Encounter Summary ---
Author Organization [facility] Address [address] [place] [address] Care Team Providers Care Carton Stenciler Name Role Phone Rashard Lane MD Primary Care Provider [phone] Juan Miguel Caballero [facility] Unavailable Unavailable Olimpia Turpin FIRER MARINE.FLIGHT DECK OFFICER Unavailable Maricruz Valdovinos PA-C Unavailable [phone] Indiana Hein FIRER MARINE.FLIGHT DECK OFFICER Unavailable + [phone] Source Comments In the event this information is protected by the Federal Confidentiality of Alcohol and Drug AbusePatient Records regulations: The Federal rules restrict any use of the information to criminally investigate or prosecute any alcohol or drug abuse patient.[facility] Encounter Details Date Type Department Care Team ([facility] st Contact Info) Description 01/30/2023 Patient [facility] [address] [address] Provider, Ccf Schedule Psychology Visit Social History [...] often do you attend chur ch or samaritan services? Never 12/16/2022 Do you belong to [...] Answer Date Recorded PHQ-2 score 0 01/13/2023 [facility] - Occupational Stress Questionnaire Answer Date [...] in a snf (including now)? No 12/16/2022 [place] Depression Scale Answer Date Recorded [place] Depression Scale Total 1 10/30/2020 The thought of harming myself has occurred to me . Never 10/30/2020 Area Deprivation Index Answer Date Ger rded National Score (1-100), lower number is lower ri sk 89 11/27/2022 State Score (1-10), lower number is lower risk N ot on file 11/27/2022 Data from: https://www.neighborhoodatlas.medicine.[facility].edu/. Last address used for calculation [address] [...] st Contact Info) Description 09/30/2025 9:00 AM [facility] Hematology/Oncology [address] [place] [address] [place] [address] OCREVUS documented as of this encounter Visit Diagnoses Not on filedocumented in this encounter Additional Health Concerns Infection Onset Date Last Indicated Resolved Time COVID-19 Rule-Out 02/12/2023 02/12/2023 02/13/2023 1:49 AM EDT COVID-19 Confirmed 02/12/2023 02/12/2023 8:51 PM EDT documented as of this encounter Care Teams Carton Stenciler Relationship Specialty Start Date End Date Rashard Lane MD [address] [place] [place], [place] [id number] PCP - General Family Medicine 12/09/19 Juan Miguel Caballero [facility] 05/30/24 04/12/25 Olimpia Turpin, FIRER MARINE.FLIGHT DECK OFFICER [address] [place] [address] [facility] 10/18/24 05/22/25 Maricruz Valdovinos PA-C [address] [place] [address] [facility] 10/18/24 11/11/24 Indiana Hein, CNYTHIA.FLIGHT DECK OFFICER [address] [place] [address] [facility] 06/08/25 documented as of this encounter
--- OUTSIDE RECORDS SUMMARY | 2025-08-26 19:55 | XMS_ITS | Encounter Summary ---
Author Organization [facility] Address [address] [place] [address] Care Team Providers Care Apprentice Electrician Name Role Phone Rashard Lane MD Primary Care Provider [phone] Encounter Details Date Type Department Care Team (Late st Contact Info) Description 06/14/2024 Clinisync Result Encounter [facility] External Department Unsolicited Clarke Hu DO [address] [place] [address] Social History Tobacco Use Types Packs/Day Years [...] Office Visit [facility] Sherry JEWELL [address] [place] [place] [phone] Jahaira Byers PA [address] [place] [address] documented as of this encounter Procedures Procedure [...] EFW (oz) 14 oz EFW by: Hadlock ([id number]) Extended Faculty Support Coordinator 5.9 mm CM 3.2 mm 4% Nicolaides [...] Normal LVOT view: Normal 3-vessel view: Normal 8-zhnmds-eqmymtd view: Normal Heart / Thorax Situs: situs [...] by U/S 21 w + 0 d LELIOTT by U/S: 10/25/2024 Assigned: based on stated [...] EFW (oz) 14 oz EFW by: Hadlock ([id number]) Extended Faculty Support Coordinator 5.9 mm CM 3.2 mm 4% Nicolaides [...] Normal LVOT view: Normal 3-vessel view: Normal 5-qepyym-efxtdce view: Normal Heart / Thorax Situs: situs [...] EFW (oz) 14 oz EFW by: Hadlock (AJS-VJ-XL-FL) Extended Faculty Support Coordinator 5.9 mm CM 3.2 mm 4% Nicolaides [...] Normal LVOT view: Normal 3-vessel view: Normal 9-avrvkx-wbwbzmd view: Normal Heart / Thorax Situs: situs [...] EFW (oz) 14 oz EFW by: Hadlock ([id number]-FL) Extended Faculty Support Coordinator 5.9 mm CM 3.2 mm 4% Nicolaides [...] Normal LVOT view: Normal 3-vessel view: Normal 4-wepbap-cszwbdc view: Normal Heart / Thorax Situs: situs [...] and transvaginal ultrasound examination. View:Sufficient. us Clarke Hu DO IMG OB US PROCEDURES Final Resul t documented in this encounter Visit Diagnoses Not on filedocumented in this encounter Care Teams Apprentice Electrician Relationship Specialty [place] [address] [place] [address] PCP - General Pediatrics 10/26/23 documented as of this encounter
--- OUTSIDE RECORDS SUMMARY | 2025-08-26 19:55 | XMS_ITS | Encounter Summary ---
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 documented as of this encounter Visit Diagnoses Not on filedocumented in this encounter Care Teams Orchestra Conductor Relationship Specialty Start Date End Date Rashard [address] [address] [place] [address] PCP - General Family Medicine 12/22/19 documented as of this encounter
[2025-08-26 19:56] VITALS: BP 112/93; PULSE 92; TEMP 36.9; BMI 25.0
--- OUTSIDE RECORDS SUMMARY | 2025-08-26 19:56 | XMS_ITS | Encounter Summary ---
Author Organization [facility] Address [address] [place] [address] Care Team Providers Care Maintenance Journeyman Name Role Phone Rashard Lane MD Primary Care Provider [phone] Juan Miguel Caballero [facility] Unavailable Unavailable Olimpia Turpin UPHOLSTERER OUTSIDE.VAT HOUSE LABORER Unavailable Maricruz Valdovinos PA-C Unavailable [phone] Indiana Hein UPHOLSTERER OUTSIDE.VAT HOUSE LABORER Unavailable Source Comments In the event this information is protected by the Federal Confidentiality of Alcohol and Drug AbusePatient Records regulations: The Federal rules restrict any use of the information to criminally investigate or prosecute any alcohol or drug abuse patient.[facility] Encounter Details Date Type Department Care Team (Late st Contact Info) Description 06/28/2022 Get Medical Advice [facility] Physical Therapy [address] [place] [phone] Anya Farias, PT [address] [place] [address] Closer therapy Social History Tobacco Use Types Packs/Day Years Used Date Smoking Tobacco: Never Smokeless Tobacco: Never Alcohol Use Standard Drinks/Week Comments Not Currently 0 (1 standard drink = 0.6 oz pur e alcohol) occas PHQ-2 Answer Date Recorded PHQ-2 score 0 02/08/2021 [place] Depression Scale Answer Date Recorded [place] Depression Scale Total 1 10/30/2020 The thought of harming myself has occurred to me . Never 10/30/2020 Area Deprivation Index Answer Date Ger rded National Score (1-100), lower number is lower ri sk 59 03/29/2022 State Score (1-10), lower number is lower risk N ot on file 03/29/2022 Data from: https://www.neighborhoodatlas.medicine.[facility].edu/. Last address used for calculation [address] 03/29/2022 Education Answer Date Recorded [...] PM EST Kukich, C ynthia, RN * Do you have difficulty dressing [...] st Contact Info) Description 09/30/2025 9:00 AM [facility] Hematology/Oncology [address] [place] [address] [place] [address] OCREVUS documented as of this encounter Visit Diagnoses Not on filedocumented in this encounter Additional Health Concerns Infection Onset Date Last Indicated Resolved Time COVID-19 Rule-Out 02/12/2023 02/12/2023 02/13/2023 1:49 AM EDT COVID-19 Confirmed 02/12/2023 02/12/2023 8:51 PM EDT documented as of this encounter Care Teams Maintenance Journeyman Relationship Specialty Start Date End Date Rashard [address] MD [address] [place] [address] PCP - General Family Medicine 12/09/19 Juan Miguel Caballero [facility] 05/30/24 04/12/25 Olimpia Turpin APRN.VAT HOUSE LABORER [address] [place] [address] Air Brake Mechanic Family Medicine 10/18/24 05/22/25 Maricruz Valdovinos PA-C [address] [place] [address] Air Brake Mechanic Internal Medicine 10/18/24 11/11/24 Indiana Hein APRN.VAT HOUSE LABORER [address] [place] [address] Air Brake Mechanic Family Medicine 06/08/25 documented as of this encounter
--- OUTSIDE RECORDS SUMMARY | 2025-08-26 19:56 | XMS_ITS | Encounter Summary ---
Author Organization [facility] Address [facility] [place] [address] Care Team Providers Care Book Sorter Name Role Phone Rashard Lane MD Primary Care Provider [phone] Juan Miguel Caballero Formerly [facility] Unavailable Unavailable Olimpia Turpin AQUATIC LIFE LABORER.PROCESSING SPECIALIST Unavailable [phone] Maricruz Valdovinos PA-C Unavailable [phone] Indiana Hein AQUATIC LIFE LABORER.PROCESSING SPECIALIST Unavailable Source Comments In the event this information is protected by the Federal Confidentiality of Alcohol and Drug AbusePatient Records regulations: The Federal rules restrict any use of the information to criminally investigate or prosecute any alcohol or drug abuse patient.[facility] Encounter Details Date Type Department Care Team (Late st Contact Info) Description 03/25/2023 [facility] [address] [place], [place] [id number] Nesha Williamson MD [address] [place] [address] Infusion appt. change to different [...] Answer Date Recorded PHQ-2 score 0 02/11/2023 [facility] [place] of Occupat ional Health - Occupational Stress [...] a senior care (including now)? No 12/16/2022 [place] Depression Scale Answer Date Recorded [place] Depression Scale Total 1 10/30/2020 The thought of harming myself has occurred to me . Never 10/30/2020 Area Deprivation Index Answer Date Ger rded National Score (1-100), lower number is lower ri sk 89 11/27/2022 State Score (1-10), lower number is lower risk N ot on file 11/27/2022 Data from: https://www.neighborhoodatlas.medicine.[facility].edu/. Last address used for calculation [...] st Contact Info) Description 09/30/2025 9:00 AM [facility] Hematology/Oncology [address] [place] [address] [place] [address] OCREVUS documented as of this encounter Visit Diagnoses Not on filedocumented in this encounter Care Teams Book Sorter Relationship Specialty Start Date End Date Rashard Lane MD [address] [place] [address] PCP - General Family Medicine 12/09/19 Juan Miguel Caballero [facility] 05/30/24 04/12/25 Olimpia Turpin APRN.PROCESSING SPECIALIST [address] [place] [address] Slag Worker Family Medicine 10/18/24 05/22/25 Maricruz Valdovinos PA-C [facility] [place], [place] [id number] Slag Worker Internal Medicine 10/18/24 11/11/24 Indiana Hein APRN.[facility] [address] [place] [address] [facility] Family Medicine 06/08/25 documented as of this encounter
--- OUTSIDE RECORDS SUMMARY | 2025-08-26 19:56 | XMS_ITS | Patient Health Record ---
Author Organization [facility] Address [address] [place] [address] Care Team Providers Care Food Assembler Commissary Kitchen Name Role Phone Anastasiagosia Melina Primary Care Provider MS. Romelia Yuan Unavailable [phone] Guillermo Jenkins Unavailable [phone] Reason For Referral No Information Encounters Encounter Location Date Provider Diagnosis [facility] [address] [place] [address] 01/07/2025 Mel[place] [address] [place] [address] 01/10/2025 Melina [facility] [address] [place] [address] 04/25/2025 Melina [place] [address] [address] [place] [address] 05/03/2025 Guillermo Jenkins [facility] [address] [place] [address] 01/07/2025 Melina Lowe [facility] [address] [place] [address] 04/14/2025 Guillermo Jenkins Dietary counseling a nd surveillance Z71.3 and Food insecurity Z59.41 [facility] [address] [place] [place] [address] 06/14/2025 Guillermo Jenkins Dietary counseling a nd surveillance Z71.3 and Food insecurity Z59.41 Assessments Encounter Date Diagnosis (ICD Code) Assessment Notes Treatment Notes Treatment Clinical Notes Section Notes 04/14/2025 Dietary counseling and surveillance (ICD-10 - Z71.3) Pt presents for initial RD visit. 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 -told her she was gluten, soy and sugar intolerant Weight history: 4 years ago lost alot of weight while but didnt know she was (was down 40# from normal weight) Food Allergies/Intole rances: Gluten, soy, sugar-stated causes hives chest pain, and constipation Dental: Stated she has throat/swallowin g issues- liquids can be difficult Appetite: Normal Grocery Shopping: [employer], [employer] Household: 2 kids (6 months and 4 years old) Cooking: Self Sleep: 6 hours per night GI: N/A not current - - - - - 24-HR Recall: Wake up: 9:30am water, Ensure protein shake Breakfast: 11:00am bowl of cereal (honey bunches of oats, frosted mini wheats, or honey nut cheerios with lactaid milk), frozen pancake or waffles Snack: N/A Lunch: 3:00-4:00pm leftovers from dinner (see below) Snack: N/A Dinner: 7:00-9:00pm pizza night on Fridays, or grilled chicken, corn and mashed potatoes, 1 slice of wheat bread Snack: 11:00pm Peanut butter sandwhich on wheat bread and fruit Beverages: Juice, water (does not finish a standard water bottle throughout day) and Ensure shakes Physical Activity: N/A Estimated [place] x 1.2 AF: 1,600 kcals/day for weight maintenance - - - - - OBJECTIVE: Initial weight/BMI: 140 lbs / 22.59 kg/m2 (04/14/25) self reported height and weight - - - - - Nutrition Rx: Plate method; non-starchy vegetables; lean, low sodium protein sources; complex carbohydrates; heart healthy fats Protein/day: 60-70 g/day (1-1.1 g/kg act body weight) Nutrition Dx: 1. Inadequate nutrient intake (fiber and protein) related to nutrition knowledge deficit as evidenced by 24 hr recall showing intake below recommended amount. - - - - - INTERVENTION: Summary of Visit/Education Provided: a) Overview of FIM program (expectations, box pick ups, etc.) b) Plate method c) Importance of fiber/protein for blood sugar regulation and satiety d) Importance of not skipping meals e) Discussed importance of adequate hydration Worked with patient to set the following goals: 1) Increase to 1 water bottle per day (will build up to 90oz per day) 2) Aim to get protein at every meal and snack - - - - - Other Relevant Information Discussed @ Visit: At next appt will go into gluten intolerance and gluten free food options in more detail - Materials Provided: plate method overview, produce box, meal timing handout, gluten free meals and snacks handout, 16 snacks that include protien handout, mix and match protein meal ideas - - - - - Monitoring/Evalu ation -Weight, total intake, nutrition related lab values - - - - - RD name and contact information provided. Patient with no further nutrition-relate d questions at this time. Patient to follow-up with RD on 05/19/25. Patient seen from 3:18pm to 4:13pm for a total of 55 minutes spent with patient. Patient to hot die picker next produce box 05/03/25. Seen by Guillermo Jenkins MPH, RD, LD. 04/14/2025 Food insecurity (ICD-10 - Z59.41) Pt presents for initial RD visit. 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 -told her she was gluten, soy and sugar intolerant Weight history: 4 years ago lost alot of weight while but didnt know she was (was down 40# from normal weight) Food Allergies/Intole rances: Gluten, soy, sugar-stated causes hives chest pain, and constipation Dental: Stated she has throat/swallowin g issues- liquids can be difficult Appetite: Normal Grocery Shopping: [employer] Household: 2 kids (6 months and 4 years old) Cooking: Self Sleep: 6 hours per night GI: N/A not current - - - - - 24-HR Recall: Wake up: 9:30am water, Ensure protein shake Breakfast: 11:00am bowl of cereal (honey bunches of oats, frosted mini wheats, or honey nut cheerios with lactaid milk), frozen pancake or waffles Snack: N/A Lunch: 3:00-4:00pm leftovers from dinner (see below) Snack: N/A Dinner: 7:00-9:00pm pizza night on Fridays, or grilled chicken, corn and mashed potatoes, 1 slice of wheat bread Snack: 11:00pm Peanut butter sandwhich on wheat bread and fruit Beverages: Juice, water (does not finish a standard water bottle throughout day) and Ensure shakes Physical Activity: N/A Estimated [place] x 1.2 AF: 1,600 kcals/day for weight maintenance - - - - - OBJECTIVE: Initial weight/BMI: 140 lbs / 22.59 kg/m2 (04/14/25) self reported height and weight - - - - - Nutrition Rx: Plate method; non-starchy vegetables; lean, low sodium protein sources; complex carbohydrates; heart healthy fats Protein/day: 60-70 g/day (1-1.1 g/kg act body weight) Nutrition Dx: 1. Inadequate nutrient intake (fiber and protein) related to nutrition knowledge deficit as evidenced by 24 hr recall showing intake below recommended amount. - - - - - INTERVENTION: Summary of Visit/Education Provided: a) Overview of FIM program (expectations, box pick ups, etc.) b) Plate method c) Importance of fiber/protein for blood sugar regulation and satiety d) Importance of not skipping meals e) Discussed importance of adequate hydration Worked with patient to set the following goals: 1) Increase to 1 water bottle per day (will build up to 90oz per day) 2) Aim to get protein at every meal and snack - - - - - Other Relevant Information Discussed @ Visit: At next appt will go into gluten intolerance and gluten free food options in more detail - Materials Provided: plate method overview, produce box, meal timing handout, gluten free meals and snacks handout, 16 snacks that include protien handout, mix and match protein meal ideas - - - - - Monitoring/Evalu ation -Weight, total intake, nutrition related lab values - - - - - RD name and contact information provided. Patient with no further nutrition-relate d questions at this time. Patient to follow-up with RD on 05/19/25. Patient seen from 3:18pm to 4:13pm for a total of 55 minutes spent with patient. Patient to hot die picker next produce box 05/03/25. Seen by Guillermo Jenkins MPH, RD, LD. 06/14/2025 Dietary counseling and surveillance (ICD-10 - Z71.3) Pt presents for initial RD visit. 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 -told her she was gluten, soy and sugar intolerant Weight history: 4 years ago lost alot of weight while but didnt know she was (was down 40# from normal weight) Food Allergies/Intole rances: Gluten, soy, sugar-stated causes hives chest pain, and constipation Dental: Stated she has throat/swallowin g issues- liquids can be difficult Appetite: Normal Grocery Shopping: [employer], [employer] Household: 2 kids (6 months and 4 years old) Cooking: Self Sleep: 6 hours per night GI: N/A not current - - - - - 24-HR Recall: Wake up: 9:30am water, Ensure protein shake Breakfast: 11:00am bowl of cereal (honey bunches of oats, frosted mini wheats, or honey nut cheerios with lactaid milk), frozen pancake or waffles Snack: N/A Lunch: 3:00-4:00pm leftovers from dinner (see below) Snack: N/A Dinner: 7:00-9:00pm pizza night on Fridays, or grilled chicken, corn and mashed potatoes, 1 slice of wheat bread Snack: 11:00pm Peanut butter escobar on wheat bread and fruit Beverages: Juice, water (does not finish a standard water bottle throughout day) and Ensure shakes Physical Activity: N/A Estimated [place] x 1.2 AF: 1,600 kcals/day for weight maintenance - - - - - OBJECTIVE: Initial weight/BMI: 140 lbs / 22.59 kg/m2 (04/14/25) self reported height and weight - - - - - Nutrition Rx: Plate method; non-starchy vegetables; lean, low sodium protein sources; complex carbohydrates; heart healthy fats Protein/day: 60-70 g/day (1-1.1 g/kg act body weight) Nutrition Dx: 1. Inadequate nutrient intake (fiber and protein) related to nutrition knowledge deficit as evidenced by 24 hr recall showing intake below recommended amount. - - - - - INTERVENTION: Summary of Visit/Education Provided: a) Reviewed plate method b) Reviewed importance of fiber/protein for blood sugar regulation and satiety c) Reviewed importance of not skipping meals d) Reviewed importance of adequate hydration e) Progress of goals Worked with patient to set the following goals: 1) Increase to 1 water bottle per day (will build up to 90oz per day) (in progress) 2) Aim to get protein at every meal and snack (in progress) - - - - - Other Relevant Information Discussed @ Visit: Pt stated she has been consuming gluten and it does not cause GI upset or chest pain anymore but causes acne - Materials Provided: recipe, produce box, gluten free snack ideas handout, gluten free shopping guide handout, gluten free meal and snack idea handout, 16 snacks that include protein handout, snack builder handout, protein/fiber handout, mix and match protein meals and snacks handout - - - - - Monitoring/Evalu ation -Weight, total intake, nutrition related lab values - - - - - RD name and contact information provided. Patient with no further nutrition-relate d questions at this time. Patient to follow-up with RD in 3 months. Patient seen from 1:28-1:48 PM for a total of 20 minutes spent with patient. Seen by Guillermo Jenkins MPH, RD, LD. 06/14/2025 Food insecurity (ICD-10 - Z59.41) Pt presents for initial RD visit. 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 -told her she was gluten, soy and sugar intolerant Weight history: 4 years ago lost alot of weight while but didnt know she was (was down 40# from normal weight) Food Allergies/Intole rances: Gluten, soy, sugar-stated causes hives chest pain, and constipation Dental: Stated she has throat/swallowin g issues- liquids can be difficult Appetite: Normal Grocery Shopping: [employer], [place] Household: 2 kids (6 months and 4 years old) Cooking: Self Sleep: 6 hours per night GI: N/A not current - - - - - 24-HR Recall: Wake up: 9:30am water, Ensure protein shake Breakfast: 11:00am bowl of cereal (honey bunches of oats, frosted mini wheats, or honey nut cheerios with lactaid milk), frozen pancake or waffles Snack: N/A Lunch: 3:00-4:00pm leftovers from dinner (see below) Snack: N/A Dinner: 7:00-9:00pm pizza night on Fridays, or grilled chicken, corn and mashed potatoes, 1 slice of wheat bread Snack: 11:00pm Peanut butter sandwhich on wheat bread and fruit Beverages: Juice, water (does not finish a standard water bottle throughout day) and Ensure shakes Physical Activity: N/A Estimated [place] x 1.2 AF: 1,600 kcals/day for weight maintenance - - - - - OBJECTIVE: Initial weight/BMI: 140 lbs / 22.59 kg/m2 (04/14/25) self reported height and weight - - - - - Nutrition Rx: Plate method; non-starchy vegetables; lean, low sodium protein sources; complex carbohydrates; heart healthy fats Protein/day: 60-70 g/day (1-1.1 g/kg act body weight) Nutrition Dx: 1. Inadequate nutrient intake (fiber and protein) related to nutrition knowledge deficit as evidenced by 24 hr recall showing intake below recommended amount. - - - - - INTERVENTION: Summary of Visit/Education Provided: a) Reviewed plate method b) Reviewed importance of fiber/protein for blood sugar regulation and satiety c) Reviewed importance of not skipping meals d) Reviewed importance of adequate hydration e) Progress of goals Worked with patient to set the following goals: 1) Increase to 1 water bottle per day (will build up to 90oz per day) (in progress) 2) Aim to get protein at every meal and snack (in progress) - - - - - Other Relevant Information Discussed @ Visit: Pt stated she has been consuming gluten and it does not cause GI upset or chest pain anymore but causes acne - Materials Provided: recipe, produce box, gluten free snack ideas handout, gluten free shopping guide handout, gluten free meal and snack idea handout, 16 snacks that include protein handout, snack builder handout, protein/fiber handout, mix and match protein meals and snacks handout - - - - - Monitoring/Evalu ation -Weight, total intake, nutrition related lab values - - - - - RD name and contact information provided. Patient with no further nutrition-relate d questions at this time. Patient to follow-up with RD in 3 months. Patient seen from 1:28-1:48 PM for a total of 20 minutes spent with patient. Seen by Guillermo Jenkins MPH, RD, LD. Plan Of Treatment Next Appt Details Provider Name:Guillermo Tyson , 09/13/2025 01:00:00 PM, [address], [place], [address], Insurance Providers Payer Name Payer Address Payer Phone Subscriber Number Group Number Insured Name Patient Relationship to Insured Coverage Start Date Coverage End Date [facility] MDCR ADV [address] [address] [place] [address] [phone] [id number] ROMANCAROL ANN Self - patient is the insured 5 MEDICAID SEC TO [facility] ADV [address] [place] [address] [id number] ROMANCAROL ANN Self - patient is the insured 5
--- OUTSIDE RECORDS SUMMARY | 2025-08-26 19:56 | XMS_ITS | Encounter Summary ---
Author Organization [facility] Address [address] [place] [address] Care Team Providers Care Industrial Controls Technician Name Role Phone Rashard Lane MD Primary Care Provider [phone] Juan Miguel Caballero Former[facility] Unavailable Unavailable Olimpia Turpin FINANCIAL DEALERS.PROCESS ENGINEERING TECHNICIAN Unavailable Maricruz Valdovinos PA-C Unavailable [phone] Idniana Hein FINANCIAL DEALERS.PROCESS ENGINEERING TECHNICIAN Unavailable Source Comments In the event this information is protected by the Federal Confidentiality of Alcohol and Drug AbusePatient Records regulations: The Federal rules restrict any use of the information to criminally investigate or prosecute any alcohol or drug abuse patient.[facility] Encounter Details Date Type Department Care Team (Late st Contact Info) Description 09/05/2020 Get Medical Advice Maternal Medicine [address] [facility] [address] [place], [place] [id number] Radha Timmons MD RE: Non-Urgent Medical Question Social History Tobacco [...] Contact Info) Description 09/30/2025 9:00 AM EST [facility] Hematology/Oncology [address] [place] [address] [place] [address] OCREVUS documented as of this encounter Visit Diagnoses Not on filedocumented in this encounter Additional Health Concerns Infection Onset Date Last Indicated Resolved Time COVID-19 Rule-Out 01/08/2021 01/08/2021 01/08/2021 6:41 PM EST COVID-19 Rule-Out 02/12/2023 02/12/2023 02/13/2023 1:49 AM EDT COVID-19 Confirmed 02/12/2023 02/12/2023 8:51 PM EDT documented as of this encounter Care Teams Industrial Controls Technician Relationship Specialty Start Date End Date Rashard Lane MD [address] [place] [address] PCP - General Family Medicine 12/09/19 Juan Miguel Caballero [facility] 05/30/24 04/12/25 Olimpia Turpin, CYNTHIA.PROCESS ENGINEERING TECHNICIAN [address] [place] [address] Editor News Family Medicine 10/18/24 05/22/25 Maricruz Valdovinos PA-C [facility] [place] [address] [facility] Internal Medicine 10/18/24 11/11/24 Indiana Hein APRN.[facility] [address] [place] [address] [facility] Family Medicine 06/08/25 documented as of this encounter
--- OUTSIDE RECORDS SUMMARY | 2025-08-26 19:56 | XMS_ITS | Clinical Summary ---
Author Organization [facility] Address [address] [place] [address] Care Team Providers Care Rehabilitation Counselor Name Role Phone Unavailable Primary Care Provider Unavailabl e Social History Tobacco Use Types Packs/Day Years Used Date Smoking Tobacco: Never Assessed Comments Unknown Sex and Gender Information Value Date Recorded Sex Assigned at Not on file Legal Sex Female 12:21 AM EDT Gender Identity Not on file Sexual Orientation Not on file Plan of Treatment Not on file
--- OUTSIDE RECORDS SUMMARY | 2025-08-26 19:56 | XMS_ITS | Encounter Summary ---
Author Organization [facility] Address [facility] [place] [address] Care Team Providers Care Mine Captain Name Role Phone Rashard Lane MD Primary Care Provider [phone] Juan Miguel Caballero [facility] Unavailable Unavailable Olimpia Turpin SEMICONDUCTOR PACKAGE SYMBOL STAMPER.ROOF BOLTER OPERATOR Unavailable Maricruz Valdovinos PA-C Unavailable [phone] Indiana Hein SEMICONDUCTOR PACKAGE SYMBOL STAMPER.ROOF BOLTER OPERATOR Unavailable Source Comments In the event this information is protected by the Federal Confidentiality of Alcohol and Drug AbusePatient Records regulations: The Federal rules restrict any use of the information to criminally investigate or prosecute any alcohol or drug abuse patient.[facility] Encounter Details Date Type Department Care Team (Late st Contact Info) Description 06/18/2023 [facility] [address] [place], [place] [id number] Nesha Williamson MD [address] [place] [address] Can you fill out & fax [...] any clubs o r organizations such as buddhism groups, unions, fraternal or athletic groups, or [...] Answer Date Recorded PHQ-2 score 0 04/02/2023 [facility] [place] of Occupat ional Health - Occupational Stress [...] in a assisted (including now)? No 12/16/2022 [place] Depression Scale Answer Date Recorded [place] Depression Scale Total 1 10/30/2020 The thought of harming myself has occurred to me . Never 10/30/2020 Area Deprivation Index Answer Date Ger rded National Score (1-100), lower number is lower ri sk 89 11/27/2022 State Score (1-10), lower number is lower risk N ot on file 11/27/2022 Data from: https://www.neighborhoodatlas.medicine.[facility].edu/. Last address used for calculation [address] [...] st Contact Info) Description 09/30/2025 9:[address] [facility] Hematology/Oncology [address] [place] [address] [place] [address] OCREVUS documented as of this encounter Visit Diagnoses Not on filedocumented in this encounter Care Teams Mine Captain Relationship Specialty Start Date End Date Rashard Lane MD [address] [place] [address] PCP - General Family Medicine 12/09/19 Juan Miguel Caballero [facility] 05/30/24 04/12/25 Olimpia Turpin, SEMICONDUCTOR PACKAGE SYMBOL STAMPER.ROOF BOLTER OPERATOR [address] [place] [address] [facility] Family Medicine 10/18/24 05/22/25 Maricruz Valdovinos PA-C [address] [place] [address] [facility] Internal Medicine 10/18/24 11/11/24 Indiana Hein, SEMICONDUCTOR PACKAGE SYMBOL STAMPER.ROOF BOLTER OPERATOR [address] [place] [address] [facility] Family Medicine 06/08/25 documented as of this encounter
--- OUTSIDE RECORDS SUMMARY | 2025-08-26 19:56 | XMS_ITS | Encounter Summary ---
Author Organization [facility] Address [address] [place] [address] Care Team Providers Care Rd Project Manager Name Role Phone Rashard Lane MD Primary Care Provider Juan Miguel Caballero [facility] Unavailable Unavailable Olimpia Turpin ACTIVITY COORDINATOR.BLOOD BANK ASSISTANT Unavailable Indiana Hein ACTIVITY COORDINATOR.BLOOD BANK ASSISTANT Unavailable [phone] Source Comments In the event this information is protected by the Federal Confidentiality of Alcohol and Drug AbusePatient Records regulations: The Federal rules restrict any use of the information to criminally investigate or prosecute any alcohol or drug abuse patient.[facility] Encounter Details Date Type Department Care Team (Late st Contact Info) Description 03/28/2025 Get Medical Advice Nutrition Therapy [address] [place] [address] Provider, Ccf Like sample Social [...] often do you attend chur ch or caodaism services? More than 4 times [...] PHQ-2 score 2 03/10/2025 [facility] - Occupational Stress Questionnaire Answer Date Recorded [...] in a residential (including now)? No 12/16/2022 [place] Depression Scale Answer Date Recorded [place] Depression Scale Total 1 10/30/2020 The thought [...] is lower risk 9 07/17/2023 Data from: https://www.neighborhoodatlas.medicine.[facility].edu/. Last address used for calculation [...] 9:00 AM EST [facility] Hematology/Oncology [address] [place] [address] [place] [address] OCREVUS documented as of this encounter Visit Diagnoses Not on filedocumented in this encounter Care Teams Rd Project Manager Relationship Specialty Start Date End Date Rashard Lane MD [address] [place], [place] [id number] PCP - General Family Medicine 12/09/19 Juan Miguel Caballero [facility] 05/30/24 04/12/25 Olimpia Turpin, ACTIVITY COORDINATOR.BLOOD BANK ASSISTANT [address] [place] [address] Tape Coater Family Medicine 10/18/24 05/22/25 Indiana Hein APRN.[facility] [address] [place] [address] Tape Coater Family Medicine 06/08/25 documented as of this encounter
--- OUTSIDE RECORDS SUMMARY | 2025-08-26 19:56 | XMS_ITS | Encounter Summary ---
Author Organization [facility] Address [address] [place] [address] Care Team Providers Care Solar Photovoltaic Installer Name Role Phone Rashard Lane MD Primary Care Provider [phone] Encounter Details Date Type Department Care Team (Late st Contact Info) Description 10/12/2024 Abstract [facility] [address] [place] [address] Clarke Hu DO [address] [place] [address] Social History Tobacco Use Types Packs/Day Years [...] Office Visit [facility] [address] [place] [address] Jahaira Byers PA [address] [place] [address] [place] [address] documented as of this encounter Visit Diagnoses Not on filedocumented in this encounter Care Teams Solar Photovoltaic Installer Relationship Specialty [place] [address] [place], [place] [address] PCP - General Pediatrics 10/26/23 documented as of this encounter
--- OUTSIDE RECORDS SUMMARY | 2025-08-26 19:56 | XMS_ITS | Encounter Summary ---
Author Organization [facility] Address [address] [place] [address] Care Team Providers Care Piano Builder Name Role Phone Rashard Lane MD Primary Care Provider [phone] Juan Miguel Caballero [facility] Unavailable Unavailable Olimpia Turpin CLIP BOLTER AND WRAPPER.PSYCHIATRY INSTRUCTOR Unavailable Maricruz Valdovinos PA-C Unavailable [phone] Indiana Hein CLIP BOLTER AND WRAPPER.PSYCHIATRY INSTRUCTOR Unavailable [phone] Source Comments In the event this information is protected by the Federal Confidentiality of Alcohol and Drug AbusePatient Records regulations: The Federal rules restrict any use of the information to criminally investigate or prosecute any alcohol or drug abuse patient.[facility] Encounter Details Date Type Department Care Team (Late st Contact Info) Description 06/02/2023 Patient [facility] [address] [id number] Anya Cast APRN.PSYCHIATRY INSTRUCTOR [address] [place] [address] Social History Tobacco Use Types [...] often do you attend chur ch or judaism services? Never 12/16/2022 Do you belong to [...] Answer Date Recorded PHQ-2 score 0 04/02/2023 [facility] of Occupat [...] to sleep or slept in a senior living (including now)? No 12/16/2022 [place] Depression Scale Answer Date Recorded [place] Depression Scale Total 1 10/30/2020 The thought of harming myself has occurred to me . Never 10/30/2020 Area Deprivation Index Answer Date Ger rded National Score (1-100), lower number is lower ri sk 89 11/27/2022 State Score (1-10), lower number is lower risk N ot on file 11/27/2022 Data from: https://www.neighborhoodatlas.medicine.[facility].edu/. Last address used for calculation [address] [...] st Contact Info) Description 09/30/2025 9:00 AM [facility] Hematology/Oncology [address] [place] [address] [place] [address] OCREVUS documented as of this encounter Visit Diagnoses Not on filedocumented in this encounter Care Teams Piano Builder Relationship Specialty Start Date End Date Rashard Lane MD [address] [place] [address] PCP - General Family Medicine 12/09/19 Juan Miguel Caballero [facility] 05/30/24 04/12/25 Olimpia Turpin, CYNTHIA.PSYCHIATRY INSTRUCTOR [address] [place] [address] Welder Operator Family Medicine 10/18/24 05/22/25 Maricruz Valdovinos PA-C [address] [place] [address] [facility] Internal Medicine 10/18/24 11/11/24 Indiana Hein, CYNTHIA.[facility] [address] [place] [address] [facility] Family Medicine 06/08/25 documented as of this encounter
--- OUTSIDE RECORDS SUMMARY | 2025-08-26 19:56 | XMS_ITS | Encounter Summary ---
Author Organization [facility] Address [address] [place] [address] Care Team Providers Care Electric Blanket Packer Name Role Phone Rashard Lane MD Primary Care Provider [phone] Juan Miguel Caballero [facility] Unavailable Unavailable Olimpia Turpin REFINERY OPERATOR HELPER.AGRONOMY LOCATION MANAGER Unavailable Maricruz Valdovinos PA-C Unavailable [phone] Indiana Hein REFINERY OPERATOR HELPER.AGRONOMY LOCATION MANAGER Unavailable + [phone] Source Comments In the event this information is protected by the Federal Confidentiality of Alcohol and Drug AbusePatient Records regulations: The Federal rules restrict any use of the information to criminally investigate or prosecute any alcohol or drug abuse patient.[facility] Encounter Details Date Type Department Care Team (Late st Contact Info) Description 08/30/2020 Patient Msg Family Medicine [facility] [address] [place], [place] [phone] Rashard Lane MD [address] [facility] [place] [phone] results Social History Tobacco Use Types Packs/Day [...] Contact Info) Description 09/30/2025 9:00 AM EST [facility] Hematology/Oncology [address] [place] [address] [place] [address] OCREVUS documented as of this encounter Visit Diagnoses Not on filedocumented in this encounter Additional Health Concerns Infection Onset Date Last Indicated Resolved Time COVID-19 Rule-Out 01/08/2021 01/08/2021 01/08/2021 6:41 PM EST COVID-19 Rule-Out 02/12/2023 02/12/2023 02/13/2023 1:49 AM EDT COVID-19 Confirmed 02/12/2023 02/12/2023 8:51 PM EDT documented as of this encounter Care Teams Electric Blanket Packer Relationship Specialty Start Date End Date Rashard Lane MD [address] [place] [address] PCP - General Family Medicine 12/09/19 Juan Miguel Caballero [facility] 05/30/24 04/12/25 Olimpia Turpin, REFINERY OPERATOR HELPER.AGRONOMY LOCATION MANAGER [address] [place] [address] Tin Flopper Family Medicine 10/18/24 05/22/25 Maricruz Valdovinos PA-C [address] [place] [address] [facility] Internal Medicine 10/18/24 11/11/24 Indiana Hein, CYNTHIA.AGRONOMY LOCATION MANAGER [address] [place] [address] Tin Flopper Family Medicine 06/08/25 documented as of this encounter
--- OUTSIDE RECORDS SUMMARY | 2025-08-26 19:56 | XMS_ITS | Encounter Summary ---
Author Organization [facility] Address [address] [place] [address] Care Team Providers Care Director Of Business Applications Name Role Phone Rashard Lane MD Primary Care Provider [phone] Encounter Details Date Type Department Care Team (Late st Contact Info) Description 10/12/2024 Clinisync Result Encounter [facility] External Department Unsolicited Clarke Hu DO [address] [place] [address] Social History Tobacco Use Types Packs/Day Years [...] EDT Office Visit [facility] [address] [place] [id number] Jahaira Byers PA [address] [place] [address] [place] [address] documented as of this encounter Procedures Procedure [...] no critical findings today to indicate delivery. [facility] visit prior to US today. Scheduled [...] 74.6 40% 276.2 24%259.2 51% 56.3 28% 985513% 09/17/2024 34w 2d 87.5 78% 311.8 29%288.9 17% 66.8 43% 745191% 10/05/2024 36w 6d 89.7 49% 326.4 27%304.3 6% 70.2 26% 647026% Impression ========= Patient presents at 37w6d for [...] 74.6 40% 276.2 24%259.2 51% 56.3 28% 748988% 09/17/2024 34w 2d 87.5 78% 311.8 29%288.9 17% 66.8 43% 510444% 10/05/2024 36w 6d 89.7 49% 326.4 27%304.3 6% 70.2 26% 865501% Impression ========= Patient presents at 37w6d for [...] 74.6 40% 276.2 24%259.2 51% 56.3 28% 233503% 09/17/2024 34w 2d 87.5 78% 311.8 29%288.9 17% 66.8 43% 396513% 10/05/2024 36w 6d 89.7 49% 326.4 27%304.3 6% 70.2 26% 485886% Impression ========= Patient presents at 37w6d for evaluation of well being in apregnancy with the following complications: multiple sclerosis, history ofLEEP, AMA, FGR by AC diagnosed at 34 weeks. - Normal amniotic fluid volume - BPP 06/17 -Normal doppler indices with an RI at the 62% percentile Reassuring status based on today's assessment. There are no criticalfindings today to indicate delivery. [facility] visit prior to US today. Scheduled [...] Transabdominal ultrasound examination. View: Sufficient us Clarke [place] US PROCEDURES Final Result documented in this encounter Visit Diagnoses Not on filedocumented in this encounter Care Teams Director Of Business Applications Relationship Specialty [place] [address] [place] [address] PCP - General Pediatrics 10/26/23 documented as of this encounter
--- OUTSIDE RECORDS SUMMARY | 2025-08-26 19:56 | XMS_ITS | Encounter Summary ---
Author Organization [facility] Address [address] [place] [address] Care Team Providers Care Side Laster Name Role Phone Rashard Lane MD Primary Care Provider [phone] Juan Miguel Caballero [facility] Unavailable Unavailable Olimpia Turpin PELLETIZER OPERATOR.WALLET ASSEMBLER Unavailable [phone] Maricruz Valdovinos PA-C Unavailable [phone] Indiana Hein PELLETIZER OPERATOR.WALLET ASSEMBLER Unavailable Source Comments In the event this information is protected by the Federal Confidentiality of Alcohol and Drug AbusePatient Records regulations: The Federal rules restrict any use of the information to criminally investigate or prosecute any alcohol or drug abuse patient.[facility] Encounter Details Date Type Department Care Team ([facility] Contact Info) Description 08/21/2023 Patient Msg Neurology [address] [place] [address] Provider, Ccf Scheduling Your Actigraphy [...] How often do you attend chur or temple services? Never 12/16/2022 Do you belong to [...] Answer Date Recorded PHQ-2 score 0 08/11/2023 [facility] - Occupational [...] in a usp (including now)? No 12/16/2022 [place] Depression Scale Answer Date Recorded [place] Depression Scale Total 1 10/30/2020 The thought of harming myself has occurred to me . Never 10/30/2020 Area Deprivation Index Answer Date Ger rded National Score (1-100), lower number is lower ri sk 93 07/17/2023 State Score (1-10), lower number is lower risk 9 07/17/2023 Data from: https://www.neighborhoodatlas.medicine.[facility].edu/. Last address used for calculation [address] [...] Contact Info) Description 09/30/2025 9:00 AM [facility] Hematology/Oncology [address] [place] [address] [place] [address] OCREVUS documented as of this encounter Visit Diagnoses Not on filedocumented in this encounter Care Teams Side Laster Relationship Specialty Start Date End Date Rashard Lane MD [address] [place] [address] PCP - General Family Medicine 12/09/19 Juan Miguel Caballero [facility] Pharm[facility] 05/30/24 04/12/25 Olimpia Turpin, PELLETIZER OPERATOR.WALLET ASSEMBLER [address] [place] [address] French Tutor Family Medicine 10/18/24 05/22/25 Maricruz Valdovinos PA-C [facility] [place] [address] French Tutor Internal Medicine 10/18/24 11/11/24 Indiana Hein APRN.WALLET ASSEMBLER [address] [place] [address] French Tutor Family Medicine 06/08/25 documented as of this encounter
--- OUTSIDE RECORDS SUMMARY | 2025-08-26 19:56 | XMS_ITS | Clinical Summary ---
Author Organization [facility] Address [address] [place] [address] Care Team Providers Care Academic Vice President Name Role Phone Unknown, Provider Primary Care [...] - 19+ 3-dose series) 2004 HPV Vaccine (1 - 3-dose SCDM series) 2012 COVID-19 Vaccine (2024-2 6 season) 2025 Influenza Vaccine (#1) 2025 Mammogram 2025 HIB Vaccine Aged Out No longer eligi [...] on patient's age to complete this topic RSV Antibodies Aged Out No longer shree gible based on patient's age to complete this topic Rotavirus Vaccine Aged Out No longer eligible based on patient's age to complete this topic Insurance MEDICARE MEDICAID Care Teams Academic Vice President Relationship Specialty Start Date End Date Unknown, Provider PCP - General 09/29/20
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
--- OUTSIDE RECORDS SUMMARY | 2025-08-26 19:56 | XMS_ITS | Encounter Summary ---
Author Organization [facility] Address [address] [place] [address] Care Team Providers Care Grader Meat Name Role Phone Rashard Lane MD Primary Care Provider [phone] Juan Miguel Caballero [facility] Unavailable Unavailable Olimpia Turpin INTERIOR ASSEMBLIES INSTALLER.HYGIENE COORDINATOR Unavailable Maricruz Valdovinos PA-C Unavailable [phone] [place] Hein INTERIOR ASSEMBLIES INSTALLER.HYGIENE COORDINATOR Unavailable + [phone] Source Comments In the event this information is protected by the Federal Confidentiality of Alcohol and Drug AbusePatient Records regulations: The Federal rules restrict any use of the information to criminally investigate or prosecute any alcohol or drug abuse patient.[facility] Encounter Details Date Type Department Care Team ([facility] Contact Info) Description 07/21/2022 [place] [address] Provider, [facility] MRI Screening Questionnaire Completion Required Social History Tobacco Use Types Packs/Day Years Used Date Smoking Tobacco: Never Smokeless Tobacco: Never Alcohol Use Standard Drinks/Week Comments Not Currently 0 (1 standard drink = 0.6 oz pur e alcohol) occas PHQ-2 Answer Date Recorded PHQ-2 score 0 02/08/2021 [place] Depression Scale Answer Date Recorded [place] Depression Scale Total 1 10/30/2020 The thought of harming myself has occurred to me . Never 10/30/2020 Area Deprivation Index Answer Date Ger rded National Score (1-100), lower number is lower ri sk 59 03/29/2022 State Score (1-10), lower number is lower risk N ot on file 03/29/2022 Data from: https://www.neighborhoodatlas.medicine.[facility]/. Last address used for calculation [address] 03/29/2022 Education Answer Date Recorded [...] EST [facility] Center Hematology/Oncology [address] [place] [address] [place] [address] OCREVUS documented as of this encounter Visit Diagnoses Not on filedocumented in this encounter Additional Health Concerns Infection Onset Date Last Indicated Resolved Time COVID-19 Rule-Out 02/12/2023 02/12/2023 02/13/2023 1:49 AM EDT COVID-19 Confirmed 02/12/2023 02/12/2023 8:51 PM EDT documented as of this encounter Care Teams Grader Meat Relationship Specialty Start Date End Date Rashard Lane MD [address] [place] [address] PCP - General Family Medicine 12/09/19 [facility] 04/12/25 Olimpia Turpin, INTERIOR ASSEMBLIES INSTALLER.HYGIENE COORDINATOR [address] [place] [address] Landscaping And Groundskeeping Laborer Family Medicine 10/18/24 05/22/25 Maricruz Valdovinos PA-C [address] [place] [address] Landscaping And Groundskeeping Laborer Internal Medicine 10/18/24 11/11/24 [place] Hein, INTERIOR ASSEMBLIES INSTALLER.HYGIENE COORDINATOR [address] [place] [address] Landscaping And Groundskeeping Laborer Family Medicine 06/08/25 documented as of this encounter
--- OUTSIDE RECORDS SUMMARY | 2025-08-26 19:56 | XMS_ITS | Encounter Summary ---
Author Organization [facility] Address [address] [place] [address] Care Team Providers Care Game Master Name Role Phone Rashard Lane MD Primary Care Provider [phone] Juan Miguel Caballero [facility] Unavailable Unavailable Olimpia Turpin FISHER TRAP.BANKING SERVICES ADVISOR Unavailable [phone] Maricruz Valdovinos PA-C Unavailable [phone] [place] Hein FISHER TRAP.BANKING SERVICES ADVISOR Unavailable + [phone] Source Comments In the event this information is protected by the Federal Confidentiality of Alcohol and Drug AbusePatient Records regulations: The Federal rules restrict any use of the information to criminally investigate or prosecute any alcohol or drug abuse patient.[facility] Encounter Details Date Type Department Care Team (Late st Contact Info) Description 07/29/2023 Get Medical Advice Family Medicine [facility] [address] [place], [place] [id number] Rashard Lane MD [address] [place], [place] [id number] Schedule for sheep sticker Social History Tobacco Use Types Packs/Day Years [...] often do you attend chur ch or druze services? Never 12/16/2022 Do you belong to any clubs o r organizations such as orthodox groups, unions, fraternal or athletic groups, [...] Answer Date Recorded PHQ-2 score 0 07/17/2023 [facility] Occupat ional Health - Occupational Stress [...] in a detention (including now)? No 12/16/2022 [place] Depression Scale Answer Date Recorded [place] Depression Scale Total 1 10/30/2020 The thought of harming myself has occurred to me . Never 10/30/2020 Area Deprivation Index Answer Date Ger rded National Score (1-100), lower number is lower ri sk 93 07/17/2023 State Score (1-10), lower number is lower risk 9 07/17/2023 Data from: https://www.neighborhoodatlas.medicine.[facility].edu/. Last address used for calculation [address] 07/17/2023 Education Answer Date Recorded What [...] [facility] Hematology/Oncology [address] [place] [address] [place] [address] OCREVUS documented as of this encounter Visit Diagnoses Diagnosis Nail abnormality- Primary Unspecified disease of nail documented in this encounter Care Teams Game Master Relationship Specialty Start Date End Date Rashard Lane MD [address] [place] [address] PCP - General Family Medicine 12/09/19 Juan Miguel Caballero [facility] 05/30/24 04/12/25 Olimpia Turpin, FISHER TRAP.BANKING SERVICES ADVISOR [address] [place] [address] Content Editor Family Medicine 10/18/24 05/22/25 Maricruz Valdovinos PA-C [address] [place] [address] Content Editor Internal Medicine 10/18/24 11/11/24 Indiana Hein, FISHER TRAP.[facility] [address] [place] [address] Content Editor Family Medicine 06/08/25 documented as of this encounter
--- OUTSIDE RECORDS SUMMARY | 2025-08-26 19:56 | XMS_ITS | Encounter Summary ---
Author Organization [facility] Address [address] [place] [address] Care Team Providers Care Director Post Name Role Phone Janice Lane MD Primary Care Provider [phone] Encounter Details Date Type Department Care Team (Late st Contact Info) Description 10/13/2024 Clinisync Result Encounter [facility] External Department Unsolicited John Hu DO [address] [place] [address] Social History Tobacco Use Types Packs/Day Years [...] Visit [facility] [address] [place] [address] Jahaira Byers PA [address] [place] [address] [place] [address] [phone] (work) documented as of this encounter Procedures Procedure Name Priority Date/Time Associated Diagnosis Comments US OB BPP W NON-STRESS 10/13/2024 7:55 AM EST documented in this encounter Results * US OB BPP W NON-STRESS (10/13/2024 7:55 AM EST) Anatomical Region Laterality Modality Other 10/13/2024 7:55 AM EST Narrative 10/13/2024 7:58 [place] [address] Ultrasound Report Signed Patient: CAROL ANN ROMAN MR#: [id number] : 1985 Acct:[id number] Age/Sex: 39 / F ADM Date: 10/12/24 Loc: [facility]O Attending Dr: John Hu D.O. Ordering Physician: John Hu D.O. Date of Service: 10/12/24 Procedure(s): US OB BPP w non-stress Accession Number(s): [id number] cc: John Hu D.O.; Physician,Non-Staff M.Jong The [address] [address] Patient Name: CAROL ANN ROMAN MRN: [id number] date: 1985 Sex: F Assigned Patient [facility]: [facility] Current Patient Location: Accession/Order Number: [id number] Exam Date: 10/12/2024 16:10 Report Date: 10/13/2024 [...] Signed By: 10/13/24 0758 DD/ 0755 TD/TT: Under Presser: Procedure Note Radiology, Radiologist, MD - 10/13/2024 [place] [address] Ultrasound Report Signed Patient: CAROL ANN ROMAN FMR#: [id number] : 1985Acct:[id number] Age/Sex: 39 / FADM Date: 10/12/24 Loc: [facility]O Attending Dr: John Hu D.O. Ordering Physician: John Hu D.O. Date of Service: 10/12/24 Procedure(s): US OB BPP w non-stress Accession Number(s): [id number] cc: John Hu D.O.; Physician,Non-Staff [place] [facility] [place] [id number] Patient Name: CAROL ANN ROMAN MRN: [id number] date: 1985 Sex: F Assigned Patient Location: [facility] Current Patient Location: Accession/Order Number: [id number] Exam Date: 10/12/2024 16:10 Report Date: 10/13/2024 [...] M.D. Signed By:10/13/24 0758 DD/ 0755 TD/TT: Under Presser: us John Mayte DO [facility] Final Result documented in this encounter Visit Diagnoses Not on filedocumented in this encounter Care Teams Director Post Relationship Specialty [place] [address] [place] [address] PCP - General Pediatrics 10/26/23 documented as of this encounter
--- OUTSIDE RECORDS SUMMARY | 2025-08-26 19:56 | XMS_ITS | Encounter Summary ---
Author Organization [facility] Address [address] [place] [address] Care Team Providers Care Bait Man Name Role Phone Rashard Lane MD Primary Care Provider [phone] [place] Hein WHEEL BORER.CONTENT PUBLISHER Unavailable [phone] Source Comments In the event this information is protected by the Federal Confidentiality of Alcohol and Drug AbusePatient Records regulations: The Federal rules restrict any use of the information to criminally investigate or prosecute any alcohol or drug abuse patient.[facility] Encounter Details Date Type Department Care Team (Late st Contact Info) Description 07/25/2025 Results Follow-Up Family Medicine [facility] [address] [place] [address] MD [address] [place] [address] Social History Tobacco Use Types Packs/Day Years [...] often do you attend chur ch or islam services? More than 4 times [...] Answer Date Recorded PHQ-2 score 1 07/26/2025 [facility] - Occupational Stress Questionnaire Answer Date [...] health care facility (including now)? No 12/16/2022 [place] Depression Scale Answer Date Recorded [place] Depression Scale Total 1 10/30/2020 The [...] lower risk 9 07/17/2023 Data from: https://www.neighborhoodatlas.medicine.[facility].edu/. Last address used for calculation [address] [...] EST [facility] Center Hematology/Oncology [address] [place] [address] [place] [address] OCREVUS documented as of this encounter Visit Diagnoses Not on filedocumented in this encounter Care Teams Bait Man Relationship Specialty Start Date End Date Rashard Lane MD [address] [place] [address] PCP - General Family Medicine 12/09/19 Indiana Hein APRN.CONTENT PUBLISHER [address] [place] [address] [facility] 06/08/25 documented as of this encounter
--- OUTSIDE RECORDS SUMMARY | 2025-08-26 19:56 | XMS_ITS | Encounter Summary ---
Author Organization [facility] Address [address] [place] [address] Care Team Providers Care Casket Trimmer Name Role Phone Rashard Lane MD Primary Care Provider [phone] Juan Miguel Caballero [facility] Unavailable Unavailable Olimpia Turpin ROOF BOLTER HELPER.DINING ROOM ATTENDANT Unavailable Maricruz Valdovinos PA-C Unavailable [phone] Indiana Hein ROOF BOLTER HELPER.DINING ROOM ATTENDANT Unavailable + [phone] Source Comments In the event this information is protected by the Federal Confidentiality of Alcohol and Drug AbusePatient Records regulations: The Federal rules restrict any use of the information to criminally investigate or prosecute any alcohol or drug abuse patient.[facility] Encounter Details Date Type Department Care Team ([facility] st Contact Info) Description 04/12/2022 Patient [facility] [address] [address] Provider, [facility] Social History Tobacco Use Types Packs/Day Years Used Date Smoking Tobacco: Never Smokeless Tobacco: Never Alcohol Use Standard Drinks/Week Comments Not Currently 0 (1 standard drink = 0.6 oz pur e alcohol) occas PHQ-2 Answer Date Recorded PHQ-2 score 0 02/08/2021 [place] Depression Scale Answer Date Recorded [place] Depression Scale Total 1 10/30/2020 The thought of harming myself has occurred to me . Never 10/30/2020 Area Deprivation Index Answer Date Ger rded National Score (1-100), lower number is lower ri sk 59 03/29/2022 State Score (1-10), lower number is lower risk N ot on file 03/29/2022 Data from: https://www.neighborhoodatlas.medicine.[facility]/. Last address used for calculation [address] 03/29/2022 Comments No Sex and [...] 09/30/2025 9:00 AM [facility] Hematology/Oncology [address] [place] [address] [place] [address] OCREVUS documented as of this encounter Visit Diagnoses Not on filedocumented in this encounter Additional Health Concerns Infection Onset Date Last Indicated Resolved Time COVID-19 Rule-Out 02/12/2023 02/12/2023 02/13/2023 1:49 AM EDT COVID-19 Confirmed 02/12/2023 02/12/2023 8:51 PM EDT documented as of this encounter Care Teams Casket Trimmer Relationship Specialty Start Date End Date Rashard Lane MD [address] [place] [address] PCP - General Family Medicine 12/09/19 Juan Miguel Caballero [facility] 05/30/24 04/12/25 Olimpia Turpin, ROOF BOLTER HELPER.DINING ROOM ATTENDANT [address] [place] [address] Dairy Farmer Family Medicine 10/18/24 05/22/25 Maricruz Valdovinos PA-C [address] [place] [address] Dairy Farmer Internal Medicine 10/18/24 11/11/24 Indiana Hein, ROOF BOLTER HELPER.DINING ROOM ATTENDANT [address] [place] [address] Dairy Farmer Family Medicine 06/08/25 documented as of this encounter
--- OUTSIDE RECORDS SUMMARY | 2025-08-26 19:56 | XMS_ITS | Encounter Summary ---
Author Organization [facility] Address [address] [place] [address] Care Team Providers Care Diagnostic Technician Name Role Phone Rashard Lane MD Primary Care Provider [phone] Juan Miguel Caballero [facility] Unavailable Unavailable Olimpia Turpin DEOILING MACHINE OPERATOR.DIGITAL COMMUNICATIONS MANAGER Unavailable [phone] Maricruz Valdovinos PA-C Unavailable [phone] Indiana Hein DEOILING MACHINE OPERATOR.DIGITAL COMMUNICATIONS MANAGER Unavailable Source Comments In the event this information is protected by the Federal Confidentiality of Alcohol and Drug AbusePatient Records regulations: The Federal rules restrict any use of the information to criminally investigate or prosecute any alcohol or drug abuse patient.[facility] Encounter Details Date Type Department Care Team ([facility] Contact Info) Description 08/18/2023 Patient Msg Neurology [address] [place] [address] Provider, [facility] Appointment Social History [...] often do you attend chur ch or confucianism services? Never 12/16/2022 Do you belong to any clubs o r organizations such as anabaptist groups, unions, fraternal or athletic groups, or [...] Answer Date Recorded PHQ-2 score 0 08/11/2023 [facility] - Occupational Stress Questionnaire [...] a nursing home (including now)? No 12/16/2022 [place] Depression Scale Answer Date Recorded [place] Depression Scale Total 1 10/30/2020 The thought of harming myself has occurred to me . Never 10/30/2020 Area Deprivation Index Answer Date Ger rded National Score (1-100), lower number is lower ri sk 93 07/17/2023 State Score (1-10), lower number is lower risk 9 07/17/2023 Data from: https://www.neighborhoodatlas.medicine.[facility].edu/. Last address used for calculation [address] [...] Assessment Author No 01/11/2021 4:00 PM EST Gmoez Oliveira RN * Are you blind or [...] st Contact Info) Description 09/30/2025 9:00 AM [facility] Hematology/Oncology [address] [place] [address] [place] [address] OCREVUS documented as of this encounter Visit Diagnoses Not on filedocumented in this encounter Care Teams Diagnostic Technician Relationship Specialty Start Date End Date Rashard Lane MD [address] [place] [address] PCP - General Family Medicine 12/09/19 Juan Miguel Caballero [facility] 05/30/24 04/12/25 Olimpia Turpin APRN.TREE [address] [place] [address] Openstack Developer Family Medicine 10/18/24 05/22/25 Maricruz Valdovinos PA-C [address] [place] [address] Openstack Developer Internal Medicine 10/18/24 11/11/24 Indiana Hein APRN.DIGITAL COMMUNICATIONS MANAGER [address] [place] [address] Openstack Developer Family Medicine 06/08/25 documented as of this encounter
--- OUTSIDE RECORDS SUMMARY | 2025-08-26 19:56 | XMS_ITS | Encounter Summary ---
Author Organization [facility] Address [facility] [place] [address] Care Team Providers Care Grizzly Worker Name Role Phone Rashard Lane MD Primary Care Provider [phone] Juan Miguel Caballero [facility] Unavailable Unavailable Olimpia Turpin NUCLEAR RADIATION ENGINEER.PLASTER MODEL AND MOLD MAKER Unavailable [phone] Maricruz Valdovinos PA-C Unavailable [phone] Indiana Hein NUCLEAR RADIATION ENGINEER.PLASTER MODEL AND MOLD MAKER Unavailable Source Comments In the event this information is protected by the Federal Confidentiality of Alcohol and Drug AbusePatient Records regulations: The Federal rules restrict any use of the information to criminally investigate or prosecute any alcohol or drug abuse patient.[facility] Encounter Details Date Type Department Care Team (Late st Contact Info) Description 03/28/2023 [facility] [address] [place], [place] [id number] Nesha Williamson MD [address] [place] [address] Do you need anything else [...] any clubs o r organizations such as baptism groups, unions, fraternal or athletic groups, or [...] Answer Date Recorded PHQ-2 score 0 02/11/2023 [facility] of Occupat ional Health - Occupational [...] in a fci (including now)? No 12/16/2022 [place] Depression Scale Answer Date Recorded [place] Depression Scale Total 1 10/30/2020 The thought of harming myself has occurred to me . Never 10/30/2020 Area Deprivation Index Answer Date Ger rded National Score (1-100), lower number is lower ri sk 89 11/27/2022 State Score (1-10), lower number is lower risk N ot on file 11/27/2022 Data from: https://www.neighborhoodatlas.medicine.[facility].edu/. Last address used for calculation [address] [...] st Contact Info) Description 09/30/2025 9:00 AM [facility] Hematology/Oncology [address] [place] [address] [place] [address] OCREVUS documented as of this encounter Visit Diagnoses Not on filedocumented in this encounter Care Teams Grizzly Worker Relationship Specialty Start Date End Date Rashard Lane MD [address] [facility] [place] [address] PCP - General Family Medicine 12/09/19 Juan Miguel Caballero [facility] 05/30/24 04/12/25 Olimpia Turpin, NUCLEAR RADIATION ENGINEER.PLASTER MODEL AND MOLD MAKER [address] [place] [address] Associate Professor Of Literacy Family Medicine 10/18/24 05/22/25 Maricruz Valdovinos PA-C [facility] [place] [address] Associate Professor Of Literacy Internal Medicine 10/18/24 11/11/24 Indiana Hein APRN.[facility] [address] [place] [address] Associate Professor Of Literacy Family Medicine 06/08/25 documented as of this encounter
--- OUTSIDE RECORDS SUMMARY | 2025-08-26 19:56 | XMS_ITS | Encounter Summary ---
Author Organization [facility] Address [address] [place] [address] Care Team Providers Care Chief Information Security Officer Name Role Phone Rashard Lane MD Primary Care Provider [phone] Encounter Details Date Type Department Care Team (Late st Contact Info) Description 10/12/2024 Clinisync Result Encounter [facility] External Department Unsolicited Clarke Hu DO [address] [place] [address] Social History Tobacco Use Types Packs/Day Years [...] [address] [place] [id number] Jahaira Byers PA [address] [place] [address] [place] [address] documented as of this encounter Procedures Procedure [...] 74.6 40% 276.2 24%259.2 51% 56.3 28% 886337% 09/17/2024 34w 2d 87.5 78% 311.8 29%288.9 17% 66.8 43% 268534% 10/05/2024 36w 6d 89.7 49% 326.4 27%304.3 6% 70.2 26% 932601% Impression ========= Patient presents at 37w6d for [...] 74.6 40% 276.2 24%259.2 51% 56.3 28% 462511% 09/17/2024 34w 2d 87.5 78% 311.8 29%288.9 17% 66.8 43% 354437% 10/05/2024 36w 6d 89.7 49% 326.4 27%304.3 6% 70.2 26% 733919% Impression ========= Patient presents at 37w6d for [...] 74.6 40% 276.2 24%259.2 51% 56.3 28% 283226% 09/17/2024 34w 2d 87.5 78% 311.8 29%288.9 17% 66.8 43% 991252% 10/05/2024 36w 6d 89.7 49% 326.4 27%304.3 6% 70.2 26% 935943% Impression ========= Patient presents at 37w6d for [...] on filedocumented in this encounter Care Teams Chief Information Security Officer Relationship Specialty [place] [address] [place] [address] PCP - General Pediatrics 10/26/23 documented as of this encounter
--- OUTSIDE RECORDS SUMMARY | 2025-08-26 19:56 | XMS_ITS | Encounter Summary ---
Author Organization [facility] Address [address] [place] [address] Care Team Providers Care Submarine Advisory Team Watch Officer Name Role Phone Rashard Lane MD Primary Care Provider [phone] Juan Miguel Caballero [facility] Unavailable Unavailable Olimpia Turpin RADIOLOGY ADMINISTRATOR.RAILROAD TRACK REPAIR SUPERVISOR Unavailable Maricruz Valdovinos PA-C Unavailable [phone] Indiana Hein RADIOLOGY ADMINISTRATOR.RAILROAD TRACK REPAIR SUPERVISOR Unavailable Source Comments In the event this information is protected by the Federal Confidentiality of Alcohol and Drug AbusePatient Records regulations: The Federal rules restrict any use of the information to criminally investigate or prosecute any alcohol or drug abuse patient.[facility] Encounter Details Date Type Department Care Team (Late st Contact Info) Description 10/02/2020 Patient Msg Dermatology [address] [place] [address] Ángel Pardo MD [address] [place] [address] [place], [place] [id number] shampoo Social History Tobacco Use Types Packs/Day [...] Contact Info) Description 09/30/2025 9:00 AM EST [facility] Hematology/Oncology [address] [place] [address] [place] [address] OCREVUS documented as of this encounter Visit Diagnoses Not on filedocumented in this encounter Additional Health Concerns Infection Onset Date Last Indicated Resolved Time COVID-19 Rule-Out 01/08/2021 01/08/2021 01/08/2021 6:41 PM EST COVID-19 Rule-Out 02/12/2023 02/12/2023 02/13/2023 1:49 AM EDT COVID-19 Confirmed 02/12/2023 02/12/2023 8:51 PM EDT documented as of this encounter Care Teams Submarine Advisory Team Watch Officer Relationship Specialty Start Date End Date Rashard Lane MD [address] [facility] [place] [address] PCP - General Family Medicine 12/09/19 Juan Miguel Caballero [facility] 05/30/24 04/12/25 Olimpia Turpin, RADIOLOGY ADMINISTRATOR.RAILROAD TRACK REPAIR SUPERVISOR [address] [facility] [address] E Commerce Architect Family Medicine 10/18/24 05/22/25 Maricruz Valdovinos PA-C [facility] [place] [address] E Commerce Architect Internal Medicine 10/18/24 11/11/24 Indiana Hein, CYNTHIA.[facility] [address] [place] [address] E Commerce Architect Family Medicine 06/08/25 documented as of this encounter
--- OUTSIDE RECORDS SUMMARY | 2025-08-26 19:56 | XMS_ITS | Encounter Summary ---
Author Organization [facility] Address [facility] [place] [address] Care Team Providers Care Senior Tax Accountant Name Role Phone Rashard Lane MD Primary Care Provider [phone] Juan Miguel Caballero [facility] Unavailable Unavailable Olimpia Turpin LEGAL ARBITRATOR.TIMBER SPOTTER Unavailable [phone] Maricruz Valdovinos PA-C Unavailable [phone] Indiana Hein LEGAL ARBITRATOR.TIMBER SPOTTER Unavailable [phone] Source Comments In the event this information is protected by the Federal Confidentiality of Alcohol and Drug AbusePatient Records regulations: The Federal rules restrict any use of the information to criminally investigate or prosecute any alcohol or drug abuse patient.[facility] Reason for Visit * Reason Comments Medication Preauthorization Dalfampridin e ER 10MG er tablets Encounter Details Date Type Department Care Team (Late st Contact Info) Description 12/31/2023 [facility] [address] [address] Anya Cast, CYNTHIA.TIMBER SPOTTER [address] [place] [address] Medication Preauthorization (Dalfampridine ER 10MG er tablets) [...] How often do you attend chur or christian services? Never 12/16/2022 Do you [...] Answer Date Recorded PHQ-2 score 0 08/11/2023 [facility] [place] of Occupat ional Health - Occupational Stress [...] place to sleep or slept in a retirement (including now)? No 12/16/2022 [place] Depression Scale Answer Date Recorded [place] Depression Scale Total 1 10/30/2020 The thought of harming myself has occurred to me . Never 10/30/2020 Area Deprivation Index Answer Date Ger rded National Score (1-100), lower number is lower ri sk 93 07/17/2023 State Score (1-10), lower number is lower risk 9 07/17/2023 Data from: https://www.neighborhoodatlas.medicine.[facility].edu/. Last address used for calculation [address] [...] Contact Info) Description 09/30/2025 9:00 AM EST [facility] Hematology/Oncology [address] [place] [address] [place] [address] OCREVUS documented as of this encounter Visit Diagnoses Not on filedocumented in this encounter Care Teams Senior Tax Accountant Relationship Specialty Start Date End Date Rashard Lane MD [address] [place] [address] PCP - General Family Medicine 12/09/19 Juan Miguel Caballero [facility] 05/30/24 04/12/25 Olimpia Turpin, LEGAL ARBITRATOR.TIMBER SPOTTER [address] [place] [address] Group Tester Family Medicine 10/18/24 05/22/25 Maricruz Valdovinos PA-C [address] [place] [address] Group Tester Internal Medicine 10/18/24 11/11/24 Indiana Hein, LEGAL ARBITRATOR.TIMBER SPOTTER [address] [place] [address] Group Tester Family Medicine 06/08/25 documented as of this encounter
--- OUTSIDE RECORDS SUMMARY | 2025-08-26 19:56 | XMS_ITS | Encounter Summary ---
Author Organization [facility] Address [address] [place] [address] Care Team Providers Care Crm Solution Architect Name Role Phone Rashard Lane MD Primary Care Provider [phone] Juan Miguel Caballero [facility] Unavailable Unavailable Olimpia Turpin STREET ENGINEER.GROCERY STOCK CLERK Unavailable Maricruz Valdovinos PA-C Unavailable [phone] ENGINEER.GROCERY STOCK CLERK Unavailable + [phone] Source Comments In the event this information is protected by the Federal Confidentiality of Alcohol and Drug AbusePatient Records regulations: The Federal rules restrict any use of the information to criminally investigate or prosecute any alcohol or drug abuse patient.[facility] Encounter Details Date Type Department Care Team ([facility] st Contact Info) Description 07/19/2022 [place] [address] Provider, Ccf MRI Screening Social History Tobacco Use Types Packs/Day Years Used Date Smoking Tobacco: Never Smokeless Tobacco: Never Alcohol Use Standard Drinks/Week Comments Not Currently 0 (1 standard drink = 0.6 oz pur e alcohol) occas PHQ-2 Answer Date Recorded PHQ-2 score 0 02/08/2021 [place] Depression Scale Answer Date Recorded [place] Depression Scale Total 1 10/30/2020 The thought of harming myself has occurred to me . Never 10/30/2020 Area Deprivation Index Answer Date Ger rded National Score (1-100), lower number is lower ri sk 59 03/29/2022 State Score (1-10), lower number is lower risk N ot on file 03/29/2022 Data from: https://www.neighborhoodatlas.medicine.[facility]/. Last address used for calculation [address] [...] Contact Info) Description 09/30/2025 9:00 AM EST [facility] Hematology/Oncology [address] [place] [address] [place] [address] OCREVUS documented as of this encounter Visit Diagnoses Not on filedocumented in this encounter Additional Health Concerns Infection Onset Date Last Indicated Resolved Time COVID-19 Rule-Out 02/12/2023 02/12/2023 02/13/2023 1:49 AM EDT COVID-19 Confirmed 02/12/2023 02/12/2023 8:51 PM EDT documented as of this encounter Care Teams Crm Solution Architect Relationship Specialty Start Date End Date Rashard Lane MD [address] [place] [address] PCP - General Family Medicine 12/09/19 [facility] 04/12/25 Olimpia Turpin, STREET ENGINEER.GROCERY STOCK CLERK [address] [place] [address] Sample Mounter Family Medicine 10/18/24 05/22/25 Maricruz Valdovinos PA-C [address] [place] [address] Sample Mounter Internal Medicine 10/18/24 11/11/24 Indiana Hein, STREET ENGINEER.GROCERY STOCK CLERK [address] [place] [address] Sample Mounter Family Medicine 06/08/25 documented as of this encounter
--- OUTSIDE RECORDS SUMMARY | 2025-08-26 19:56 | XMS_ITS | Encounter Summary ---
Author Organization [facility] Address [address] [place] [address] Care Team Providers Care Vehicle Sales Professional Name Role Phone Rashard Lane MD Primary Care Provider [phone] Encounter Details Date Type Department Care Team (Late st Contact Info) Description 11/19/2024 Orders Only [facility] [address] [place] [address] Camilla Rm LPN [email or web address] [address] Social History Tobacco Use Types Packs/Day Years [...] 04/17/2026 1:00 PM EDT Office Visit [facility] [address] [place] [address] Jahaira Byers PA [address] [place] [address] documented as of this encounter Procedures Procedure Name Priority Date/Time Associated Diagnosis Comments PAP SMEAR Routine 03/22/2024 12:00 AM EDT documented in this encounter Results * Pap Smear (03/22/2024 12:00 AM EDT) Swab Cervical swab / Unknown us [facility]te Nurse [facility] Ob LAB CYTOLOGY ORDERABLES Final Result EXTERNAL LAB documented in this encounter Visit Diagnoses Not on filedocumented in this encounter Care Teams Vehicle Sales Professional Relationship Specialty [place] [address] [place] [address] PCP - General Pediatrics 10/26/23 documented as of this encounter
--- OUTSIDE RECORDS SUMMARY | 2025-08-26 19:56 | XMS_ITS | Encounter Summary ---
Author Organization [facility] Address [address] [place] [address] Care Team Providers Care Metal Coater Name Role Phone Rashard Lane MD Primary Care Provider [phone] Juan Miguel Caballero [facility] Unavailable Unavailable Olimpia Turpin MARKET SPECIALIST.FENCE POST DRIVER Unavailable Maricruz Valdovinos PA-C Unavailable [phone] [place] Hein MARKET SPECIALIST.FENCE POST DRIVER Unavailable + [phone] Source Comments In the event this information is protected by the Federal Confidentiality of Alcohol and Drug AbusePatient Records regulations: The Federal rules restrict any use of the information to criminally investigate or prosecute any alcohol or drug abuse patient.[facility] Encounter Details Date Type Department Care Team (Late st Contact Info) Description 12/18/2019 Patient Msg Family Medicine [facility] [address] [place], [place] [id number] Rashard Lane MD [address] [facility] [place] [address] RE:results Social History Tobacco Use Types Packs/Day [...] 09/30/2025 9:00 AM EST [facility] Hematology/Oncology [address] [place] [address] [place] [address] OCREVUS documented as of this encounter Visit Diagnoses Diagnosis Vitamin D deficiency Unspecified vitamin D deficiency documented in this encounter Additional Health Concerns Infection Onset Date Last Indicated Resolved Time COVID-19 Rule-Out 01/08/2021 01/08/2021 01/08/2021 6:41 PM EST COVID-19 Rule-Out 02/12/2023 02/12/2023 02/13/2023 1:49 AM EDT COVID-19 Confirmed 02/12/2023 02/12/2023 8:51 PM EDT documented as of this encounter Care Teams Metal Coater Relationship Specialty Start Date End Date Rashard Lane MD [address] [place] [address] PCP - General Family Medicine 12/09/19 Juan Miguel Caballero [facility] 05/30/24 04/12/25 Olimpia Turpin APRN.FENCE POST DRIVER [address] [place] [address] Butane Compressor Operator Family Medicine 10/18/24 05/22/25 Maricruz aVldovinos PA-C [facility] [place] [address] Butane Compressor Operator Internal Medicine 10/18/24 11/11/24 Indiana Hein APRN.FENCE POST DRIVER [address] [place], [place] [id number] [facility] Family Medicine 06/08/25 documented as of this encounter
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
[2025-08-26] MEDS: KETOROLAC TROMETHAMINE 60 MG/2 ML VIAL IM (20:32)
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
== END 2025-08-26 21:05 | disposition home or self-care (01) ==
PROVIDERS: Emergency Provider Internal Medicine
DX: S66.912A Strain of unspecified muscle, fascia and tendon at wrist and hand level, left hand, initial encounter (principal); V49.49XA Driver injured in collision with other motor vehicles in traffic accident, initial encounter; M25.511 Pain in right shoulder; S63.502A Unspecified sprain of left wrist, initial encounter
CPT/HCPCS: 70160; 72100; 73030; 73110; 96372; 99284; J1885